=== PATIENT | female | born 1935 | race Caucasian/White ===

== ENCOUNTER 2020-12-25 13:33 | Emergency (ER) | payer MEDICARE, SELFPAY ==
--- NOTE | ~2020-12-25 | XR_ITS ---
EXAMINATION: XR ribs LT 2V w CXR 2V EXAM DATE: 12/25/2020 14:02 INDICATION: Fall, injury, left rib pain. TECHNIQUE: Frontal projection of the upper left ribs, frontal projection of the lower left ribs, obli que projection of the left ribs, frontal and lateral chest x-ray(s) for interpretation. Comparison is made to prior examination from 03/13/2019. FINDINGS: There are no displaced acute left rib fractures identified. There is no soft tissue abnor mality seen. Borderline heart size. There is aortic arteriosclerosis. There is no pneumothorax suspec azar. There are no pleural effusions. Mild to moderate lumbar levoscoliosis. Patient has diffuse idiop athic skeletal hyperostosis (DISH). Epigastric region surgical clips. Consider educating patient that even if there is a radiographically occult nondisplaced rib fracture, there is no specific treatment other than to refrain from activity that prevents healing. IMPRESSION: No displaced left rib fractures. Reviewed, dictated and finalized at location B.
[2020-12-25 13:45] VITALS: BP 158/66; PULSE 62; RESP 24; TEMP 36.6; O2SAT 98
--- NOTE | 2020-12-25 13:56 | ED.FALL ---
HPI - Fall General Chief Complaint: Fall Stated Complaint: chest injury Time Seen by Provider: 12/25/20 13:57 Source: patient Mode of arrival: ambulatory Limitations: no limitations History of Present Illness HPI Narrative: Tess Benedict is an 85 yo female with PMH of HTN, GERD, Parkinsons, who comes to [facility] after a fall on a wooden box that she was carrying to the garage and hit her left upper chest, has 9 out of 10 pain, pain has gotten worse over the last 2 days since incident and is worse with trying to take a deep breath. Related Data Home Medications Medication Instructions Recorded Confirmed cholecalciferol (vitamin D3) 50 mcg PO DAILY 12/25/20 12/25/20 [Vitamin D3] duloxetine 20 mg PO DAILY 12/25/20 12/25/20 felodipine 5 mg PO DAILY 12/25/20 12/25/20 meloxicam 7.5 mg PO DAILY 12/25/20 12/25/20 pantoprazole 20 mg PO HS 12/25/20 12/25/20 pramipexole 0.125 mg PO BID 12/25/20 12/25/20 propranolol 20 mg PO Q12H 12/25/20 12/25/20 sennosides-docusate sodium 1 tab-cap PO HS 12/25/20 12/25/20 [Senna-S] spironolactone 25 mg PO DAILY 12/25/20 12/25/20 tramadol 50 mg PO HS 12/25/20 12/25/20 Allergies Allergy/AdvReac Type Severity Reaction Status Date / Time Sulfa (Sulfonamide Allergy Severe Anaphylaxis Verified 12/25/20 13:58 Antibiotics) lisinopril Allergy Intermediate Swelling Verified 12/25/20 13:58 trazodone Allergy Intermediate Swelling Verified 12/25/20 13:58 of Lip/Tongue/Throat amlodipine Allergy Unknown Unknown Verified 12/25/20 13:58 celecoxib Allergy Unknown Swelling Unverified 03/13/19 17:57 scopolamine AdvReac Intermediate Confusion Verified 12/25/20 14:00 Review of Systems Review of Systems: Narrative: CONSTITUTIONAL: Denies fever, chills, sweats. EYES: Denies visual changes, redness, discharge. ENT: Denies rhinorrhea, congestion, sore throat, otalgia. CARDIOVASCULAR: Denies chest pain, palpitations, edema. RESPIRATORY: Denies dyspnea, wheezing, cough GASTROINTESTINAL: Denies abdominal pain, nausea, vomiting, diarrhea. GENITOURINARY: Denies dysuria, hematuria, abnormal discharge SKIN: Denies rash or itching. NEUROLOGIC: Denies numbness, or focal weakness. PSYCHIATRIC: Denies anxiety or depression. Left-sided chest wall pain, worse with breathing PMFSH Past Medical History Medical History GERD (gastroesophageal reflux disease) HTN (hypertension) Parkinson disease Restless leg syndrome Spinal stenosis Family History Family History Other Heart disease Hypertension Social History Social History (Updated 12/25/20 @ 14:02 by Emily Rivers CNP) Smoking status: Former smoker Alcohol intake: current Comments At time of signature, I agree with nursing past medical, surgical, social and family history. There is no relevant family history pertinent to the presenting complaint. Blood pressure is elevated even on blood pressure meds but patient is also in severe pain Exam Narrative: Exam Narrative: GENERAL: This is a well-nourished, well-developed patient, in mild distress. HEAD: normocephalic, atraumatic. EYES: IT was made sclera clear/white. Vision is grossly intact. EARS: External ears normal. Hearing grossly intact. NOSE: External nose normal without nasal discharge, nares without redness, no rhinorrhea. THROAT: Mucous membranes moist, NECK: Neck supple, non-tender CARDIOVASCULAR: Regular rate and rhythm without murmurs, gallops, or rubs. RESPIRATORY: Clear to auscultation. Breath sounds equal bilaterally. No wheezes, rales, or rhonchi. Pain in left chest particularly on deep breath that is over left breast and left upper quadrant of back, breath sounds are decreased in the area GASTROINTESTINAL: Abdomen soft, n SKIN: warm, intact with no suspicious lesions or rash, good texture and turgor. NEURO: awake, alert, and oriented to person, place and time
--- NOTE | 2020-12-25 14:05 | PC.NURSE ---
PT DECLINED WHEELCHAIR TO RADIOLOGY AND ICE FOR COMFORT
== END 2020-12-25 14:45 | disposition home or self-care (01) ==
PROVIDERS: Emergency Provider Nurse Practitioner; PCP Internal Medicine Geriatric Medicine
DX: S20.212A Contusion of left front wall of thorax, initial encounter (principal); W19.XXXA Unspecified fall, initial encounter; K21.9 Gastro-esophageal reflux disease without esophagitis; I10 Essential (primary) hypertension; G20 Parkinson's disease; G25.81 Restless legs syndrome; M48.00 Spinal stenosis, site unspecified
CPT/HCPCS: 71046; 71100; 99213; G0463

== ENCOUNTER 2021-10-12 17:55 | Emergency (ER) | payer MEDICARE, SELFPAY ==
--- NOTE | 2021-10-12 18:01 | ED.URI ---
HPI - URI/Sore Throat General Chief Complaint: Upper Respiratory Infection Stated Complaint: Bad cough Time Seen by Provider: 10/12/21 18:01 Source: patient and RN notes reviewed History of Present Illness HPI Narrative: Patient is an 85-year-old female who presents the urgent care with complaints of a dry cough since yesterday. Patient states it is worse when she lays down and feels like she cannot catch her breath . Patient states she does have an inhaler from his bout of bronchitis a year ago and that the inhaler did help. Patient denies of any chest pain or tightness. States that she was concerned about a flareup of her CHF . No other acute complaints. No acute distress noted. Patient aware of the plan of care. Some parts of this dictation were generated by voice recognition software and may contain typographical and/or grammatical inaccuracies. Related Data Home Medications Medication Instructions Recorded Confirmed cholecalciferol (vitamin D3) 50 mcg PO DAILY 12/25/20 10/12/21 [Vitamin D3] felodipine 5 mg PO DAILY 12/25/20 10/12/21 pantoprazole 20 mg PO HS 12/25/20 10/12/21 pramipexole 0.125 mg PO BID 12/25/20 10/12/21 propranolol 20 mg PO Q12H 12/25/20 10/12/21 sennosides-docusate sodium 1 tab-cap PO HS 12/25/20 12/25/20 [Senna-S] spironolactone 25 mg PO DAILY 12/25/20 10/12/21 tramadol 50 mg PO HS 12/25/20 10/12/21 apixaban [Eliquis] 5 mg DIRECTED 10/12/21 10/12/21 furosemide 40 mg DIRECTED 10/12/21 10/12/21 Allergies Allergy/AdvReac Type Severity Reaction Status Date / Time Sulfa (Sulfonamide Allergy Severe Anaphylaxis Verified 12/25/20 13:58 Antibiotics) lisinopril Allergy Intermediate Swelling Verified 12/25/20 13:58 trazodone Allergy Intermediate Swelling Verified 12/25/20 13:58 of Lip/Tongue/Throat amlodipine Allergy Unknown Unknown Verified 12/25/20 13:58 celecoxib Allergy Unknown Swelling Unverified 03/13/19 17:57 scopolamine AdvReac Intermediate Confusion Verified 12/25/20 14:00 Review of Systems Review of Systems: CONSTITUTIONAL: Denies fever, chills, or sweats. EYES: Denies visual changes, redness, or discharge. ENT: Denies rhinorrhea, congestion, sore throat, or otalgia. CARDIOVASCULAR: Denies chest pain, palpitations, or edema. RESPIRATORY: Reports of a dry cough GASTROINTESTINAL: Denies abdominal pain, nausea, vomiting, or diarrhea. GENITOURINARY: Denies dysuria or hematuria. SKIN: Denies rash or itching. MUSCULOSKELETAL: Denies back pain, joint pain, or myalgia. NEUROLOGIC: Denies headache, numbness, or weakness. All other systems reviewed are negative, except as documented in HPI. [facility] Past Medical History Medical History GERD (gastroesophageal reflux disease) HTN (hypertension) Parkinson disease Restless leg syndrome Spinal stenosis Family History Family History Other Heart disease Hypertension Social History Social History (Updated 12/25/20 @ 14:02 by Emily Rivers CNP) Smoking status: Former smoker Alcohol intake: current Comments At the time of my signature, I reviewed and agree with the nursing past medical, surgical, social, and family history. There is no relevant family history pertinent to the patient complaint. Exam Narrative: GENERAL: This is a well-nourished, well-developed patient, in no apparent distress. HEAD: normocephalic, atraumatic. EYES: PERRL. Sclera clear/white. Vision is grossly intact. EARS: External ears normal NOSE: External nose normal with no obvious nasal discharge, nares without redness, no rhinorrhea. THROAT: Mucous membranes moist NECK: Neck supple CARDIOVASCULAR: Irregular rhythm, regular rate RESPIRATORY: Clear to auscultation. Breath sounds equal bilaterally. No wheezes, rales, or rhonchi. SKIN: warm, intact with no suspicious lesions or rash, good texture and turgor. NEURO: awake, alert, a
[2021-10-12 18:02] VITALS: BP 161/89; PULSE 93; RESP 20; TEMP 36.7; O2SAT 100
== END 2021-10-12 18:24 | disposition home or self-care (01) ==
PROVIDERS: Emergency Provider Nurse Practitioner Family; PCP Internal Medicine Geriatric Medicine
DX: R05.9 Cough, unspecified (principal); I11.0 Hypertensive heart disease with heart failure; I50.9 Heart failure, unspecified; K21.9 Gastro-esophageal reflux disease without esophagitis; G20 Parkinson's disease; G25.81 Restless legs syndrome; M48.00 Spinal stenosis, site unspecified; Z87.891 Personal history of nicotine dependence
CPT/HCPCS: 99211; G0463

== ENCOUNTER 2021-10-18 10:14 | Emergency (ER) | payer MEDICARE, SELFPAY ==
[2021-10-18 10:24] VITALS: BP 119/69; PULSE 90; RESP 20; TEMP 36.4; O2SAT 96
--- NOTE | 2021-10-18 11:11 | ED.SKABFB ---
HPI - Skin/Abscess/Foreign Bdy General Chief complaint: Skin/Abscess/Foreign Body Stated complaint: Rash Time Seen by Provider: 10/18/21 11:03 Source: patient and RN notes reviewed Mode of arrival: ambulatory Limitations: no limitations History of Present Illness HPI narrative: Patient presents today complaining of hives to her abdomen since last night that have been worsening since onset. Reports itching but no pain. Denies shortness of breath, difficulty swallowing, swelling in her face. She took a Claritin at 6:00 this morning, and Zyrtec before she went to bed. This is her normal medication routine. She has not taken any additional Benadryl or any other medications. She denies any new household products, soaps, lotions, laundry detergents or fabric softeners. No new foods, plant or animal contacts. MD complaint: rash Related Data Home Medications Medication Instructions Recorded Confirmed cholecalciferol (vitamin D3) 50 mcg PO DAILY 12/25/20 10/18/21 [Vitamin D3] felodipine 5 mg PO DAILY 12/25/20 10/18/21 pantoprazole 20 mg PO HS 12/25/20 10/18/21 pramipexole 0.125 mg PO BID 12/25/20 10/18/21 propranolol 20 mg PO Q12H 12/25/20 10/18/21 sennosides-docusate sodium 1 tab-cap PO HS 12/25/20 10/18/21 [Senna-S] spironolactone 25 mg PO DAILY 12/25/20 10/18/21 tramadol 50 mg PO HS 12/25/20 10/18/21 apixaban [Eliquis] 5 mg DIRECTED 10/12/21 10/18/21 furosemide 40 mg DIRECTED 10/12/21 10/18/21 albuterol sulfate 90 mcg INHALATION Q6-8H PRN 10/18/21 10/18/21 Allergies Allergy/AdvReac Type Severity Reaction Status Date / Time Sulfa (Sulfonamide Allergy Severe Anaphylaxis Verified 10/18/21 10:28 Antibiotics) lisinopril Allergy Intermediate Swelling Verified 10/18/21 10:28 trazodone Allergy Intermediate Swelling Verified 10/18/21 10:28 of Lip/Tongue/Throat amlodipine Allergy Unknown Unknown Verified 10/18/21 10:28 celecoxib Allergy Unknown Swelling Unverified 10/18/21 10:28 scopolamine AdvReac Intermediate Confusion Verified 10/18/21 10:28 Review of Systems Review of Systems: CONSTITUTIONAL: Denies body aches, fever, chills, or sweats. EYES: Denies visual changes, redness, or discharge. ENT: Denies rhinorrhea, congestion, sore throat, or otalgia. CARDIOVASCULAR: Denies chest pain, palpitations, or edema. RESPIRATORY: Denies cough or dyspnea. GASTROINTESTINAL: Denies abdominal pain, nausea, vomiting, or diarrhea. GENITOURINARY: Denies dysuria or hematuria. SKIN: Denies wounds.+ Hives MUSCULOSKELETAL: Denies back pain, joint pain, or myalgia. NEUROLOGIC: Denies headache, numbness, tingling, or weakness. PSYCH: Denies depression or anxiety. [facility] Past Medical History Medical History GERD (gastroesophageal reflux disease) HTN (hypertension) Parkinson disease Restless leg syndrome Spinal stenosis Family History Family History Other Heart disease Hypertension Social History Social History Smoking status: Former smoker Alcohol intake: current Comments At time of signature, I have reviewed and agree with nursing past medical, surgical, social and family history unless otherwise noted. Please see nursing chart for further information. There is no relevant family history pertinent to the presenting complaint Exam Narrative: GENERAL: Well-appearing, well-nourished, and in no acute distress. HEAD: Normocephalic, atraumatic. No facial swelling. EYES: EOMI. No redness or drainage. Conjunctivae normal. ENT: Mucous membranes pink and moist. NECK: Normal AROM. Supple. No lymphadenopathy. CHEST: No respiratory distress. EXTREMITIES: Normal range of motion. No edema. SKIN: Warm, dry. Capillary refill normal. Normal skin turgor. Large urticarial rash to the right and left lower abdomen. NEURO: No focal d
[2021-10-18] MEDS: methylPREDNISolone SOD SUCC 125 MG VIAL IM (11:21)
== END 2021-10-18 11:36 | disposition home or self-care (01) ==
PROVIDERS: Emergency Provider Nurse Practitioner; PCP Internal Medicine Geriatric Medicine
DX: L50.9 Urticaria, unspecified (principal); I10 Essential (primary) hypertension; G20 Parkinson's disease; Z87.891 Personal history of nicotine dependence
CPT/HCPCS: 96372; 99213; G0463; J2930

== ENCOUNTER 2022-12-20 12:00 | Emergency (ER) | payer MEDICARE, SELFPAY ==
[2022-12-20 12:06] VITALS: BP 103/64; PULSE 85; RESP 20; TEMP 36.2; O2SAT 94
--- NOTE | 2022-12-20 12:54 | ED.NAVMDI ---
HPI - Nausea/Vomiting/Diarrhea General Chief complaint: Nausea/Vomiting/Diarrhea Stated complaint: diarrhea Time Seen by Provider: 12/20/22 12:30 Source: patient, RN notes reviewed and old records reviewed Mode of arrival: ambulatory (with walker) Limitations: no limitations History of Present Illness HPI Narrative: 87 year old female who presents to [facility] care with complaints of 2 week duration of nausea and vomiting initially only for 2 days with continued diarrhea since that time with patient reporting 12 stools which are watery today. Patient reports that she saw her doctor at onset of her symptoms and stool culture and cDiff culture done which were negative and some labs were also done. Patient reports that she has been on liquid and Brat diet for the past 2 weeks, had no stools yesterday ate some cottage cheese and also mashed potatoes yesterday and today stools have been frequent. Patient reports that she has been drinking Pedialyte daily.Patient denies any fevers, chills or sweat or body aches, reports that she feels weak. Patient denies any blood in stools or any abdominal pain . Patient does see Dr Arauz cobbler upper for CHF and also A fib. Patient denies any recent antibiotic use. MD elicited complaint: diarrhea Pertinent past history: other (CHF, A fib) Onset (ago): week(s) (2) Description of diarrhea: watery Associated nausea: No (not since first 2 days of symptoms) Associated abdominal pain: No Treatment prior to arrival: immodium and other (Pedialyte took some Zofran at first of symptoms) Related Data Home Medications Medication Instructions Recorded Confirmed cholecalciferol (vitamin D3) 50 50 mcg PO DAILY 12/25/20 12/20/22 mcg (2,000 unit) capsule (Vitamin D3) felodipine 5 mg tablet,extended 5 mg PO DAILY 12/25/20 12/20/22 release 24 hr pantoprazole 20 mg tablet,delayed 20 mg PO HS 12/25/20 12/20/22 release pramipexole 0.125 mg tablet 0.125 mg PO BID 12/25/20 12/20/22 propranolol 20 mg tablet 20 mg PO Q12H 12/25/20 12/20/22 sennosides 8.6 mg-docusate sodium 1 tab-cap PO HS 12/25/20 12/20/22 50 mg tablet (Senna-S) spironolactone 25 mg tablet 25 mg PO DAILY 12/25/20 12/20/22 tramadol 50 mg tablet 50 mg PO HS 12/25/20 12/20/22 apixaban 5 mg tablet (Eliquis) 5 mg DIRECTED 10/12/21 12/20/22 furosemide 40 mg tablet 40 mg DIRECTED 10/12/21 12/20/22 albuterol sulfate 90 mcg/actuation 90 mcg inhalation Q6-8H PRN 10/18/21 12/20/22 aerosol inhaler Wheezing Allergies Allergy/AdvReac Type Severity Reaction Status Date / Time Sulfa (Sulfonamide Allergy Severe Anaphylaxis Verified 12/20/22 13:13 Antibiotics) lisinopril Allergy Intermediate Swelling Verified 12/20/22 13:13 trazodone Allergy Intermediate Swelling Verified 12/20/22 13:13 of Lip/Tongue/Throat amlodipine Allergy Unknown Unknown Verified 12/20/22 13:13 celecoxib Allergy Unknown Swelling Verified 12/20/22 13:13 scopolamine AdvReac Intermediate Confusion Verified 12/20/22 13:13 Review of Systems Review of Systems: CONSTITUTIONAL: Denies fever, chills, or sweats. ENT: Denies rhinorrhea, congestion, sore throat, or otalgia. CARDIOVASCULAR: Denies chest pain, palpitations, or edema. RESPIRATORY: Denies cough or dyspnea. GASTROINTESTINAL: Reports no abdominal pain,no recent nausea,no vomiting, persistent diarrhea GENITOURINARY: Denies dysuria or hematuria. SKIN: Denies rash or itching. MUSCULOSKELETAL: Denies back pain, joint pain, or myalgia. NEUROLOGIC: Denies headache, numbness, states weakness. All systems reviewed & are unremarkable except as noted in HPI and below PMFSH Past Medical History Medical History (Updated 12/21/22 @ 08:58 by Paulette Willoughby NP) Atrial fibrillation Congestive heart failure GERD (gastroesophageal reflux disease) HTN (hypertension) Kidney failure Melanoma removed left arm Parkinson disease Restless leg syndrome Spinal stenosis Surgical History Surgical History (Updated 12/21/22 @ 08
== END 2022-12-20 13:17 | disposition home or self-care (01) ==
PROVIDERS: Emergency Provider Registered Nurse; PCP Internal Medicine Geriatric Medicine
DX: R19.7 Diarrhea, unspecified (principal); I48.91 Unspecified atrial fibrillation; I11.0 Hypertensive heart disease with heart failure; I50.9 Heart failure, unspecified; K21.9 Gastro-esophageal reflux disease without esophagitis; G20 Parkinson's disease; G25.81 Restless legs syndrome; M48.00 Spinal stenosis, site unspecified; Z96.653 Presence of artificial knee joint, bilateral; Z96.641 Presence of right artificial hip joint; Z87.891 Personal history of nicotine dependence; Z85.820 Personal history of malignant melanoma of skin
CPT/HCPCS: 99211; G0463

== ENCOUNTER 2023-02-03 14:31 | Emergency (ER) | payer MEDICARE, SELFPAY ==
--- NOTE | 2023-02-03 14:37 | ED.UPPEXIN ---
HPI - Extremity Injury (Upper) General Chief Complaint: Extremity Injury, Upper Stated Complaint: left hand injury Time Seen by Provider: 02/03/23 15:00 Source: patient and RN notes reviewed Mode of arrival: ambulatory Limitations: no limitations History of Present Illness HPI narrative: 87-year-old female presents with concern for skin tear on her left wrist and 1 on her right arm. Reports she bumped her arms yesterday causing the skin tears. She is on a blood thinner and was unable to get the areas to stop bleeding. She reports she used gauze, Steri-Strips, Tegaderm and had she continue to change the dressings because the bleeding MD complaint: injury to: forearm and wrist Related Data Home Medications Medication Instructions Recorded Confirmed cholecalciferol (vitamin D3) 50 50 mcg PO DAILY 12/25/20 02/03/23 mcg (2,000 unit) capsule (Vitamin D3) felodipine 5 mg tablet,extended 5 mg PO DAILY 12/25/20 02/03/23 release 24 hr pantoprazole 20 mg tablet,delayed 20 mg PO HS 12/25/20 02/03/23 release pramipexole 0.125 mg tablet 0.125 mg PO BID 12/25/20 02/03/23 propranolol 20 mg tablet 20 mg PO Q12H 12/25/20 02/03/23 spironolactone 25 mg tablet 25 mg PO DAILY 12/25/20 02/03/23 apixaban 5 mg tablet (Eliquis) 5 mg DIRECTED 10/12/21 02/03/23 furosemide 40 mg tablet 40 mg DIRECTED 10/12/21 02/03/23 clonazepam 0.5 mg tablet 0.25 mg PO HS 02/03/23 02/03/23 Allergies Allergy/AdvReac Type Severity Reaction Status Date / Time Sulfa (Sulfonamide Allergy Severe Anaphylaxis Verified 02/03/23 14:50 Antibiotics) lisinopril Allergy Intermediate Swelling Verified 02/03/23 14:50 trazodone Allergy Intermediate Swelling Verified 02/03/23 14:50 of Lip/Tongue/Throat amlodipine Allergy Unknown Unknown Verified 02/03/23 14:50 celecoxib Allergy Unknown Swelling Verified 02/03/23 14:50 scopolamine AdvReac Intermediate Confusion Verified 02/03/23 14:50 Review of Systems Review of Systems: CONSTITUTIONAL: Denies malaise, chills, sweats, or fever. SKIN: Reports skin tears to the left wrist and right forearm MUSCULOSKELETAL: Denies muscle skeletal pain NEUROLOGIC: Denies numbness, weakness All systems reviewed & are unremarkable except as noted in HPI and below PMFSH Past Medical History Medical History (Updated 02/03/23 @ 15:13 by Ama Kelley NP) Atrial fibrillation Congestive heart failure GERD (gastroesophageal reflux disease) HTN (hypertension) Kidney failure Melanoma removed left arm Parkinson disease Restless leg syndrome Spinal stenosis Surgical History Surgical History (Updated 12/21/22 @ 08:49 by Paulette Willoughby NP) History of bilateral knee replacement History of right hip replacement Family History Family History Other Heart disease Hypertension Social History Social History (Updated 12/21/22 @ 08:50 by Paulette Willoughby NP) Smoking status: Former smoker Alcohol intake: current Alcohol use details: rare Substance use type: does not use Living arrangements: [facility] Gender identity (if verbalized by the patient): Female Comments At time of signature, agree with nursing past medical, surgical, social and family history. There is no relevant family history pertinent to the presenting complaint Exam Narrative: GENERAL: Well-appearing, well-nourished, and in no acute distress. HEAD: Normocephalic, atraumatic. EYES: PERRLA, conjunctivae clear ENT: Mucous membranes moist. NECK: Supple. No lymphadenopathy CHEST: Speaks in full sentences no respiratory distress. HEART: Regular rate and rhythm. SKIN: Warm, dry. Approximately 1 cm skin tear with flap of skin in place noted to the right forearm, small amount of bleeding noted. Approximately 2 cm v-shaped skin tear noted to the left wrist with flap of skin still in place with some bleeding noted NEURO: Alert and oriented x3. PSYCH: Norm
[2023-02-03 14:39] VITALS: BP 111/70; PULSE 83; RESP 16; TEMP 35.8; O2SAT 100
[2023-02-03 14:51] VITALS: BP 111/70; PULSE 83; RESP 16; TEMP 35.8; O2SAT 100
== END 2023-02-03 15:26 | disposition home or self-care (01) ==
PROVIDERS: Emergency Provider Nurse Practitioner; PCP Internal Medicine Geriatric Medicine
DX: S61.512A Laceration without foreign body of left wrist, initial encounter (principal); S51.811A Laceration without foreign body of right forearm, initial encounter; X58.XXXA Exposure to other specified factors, initial encounter; I48.91 Unspecified atrial fibrillation; I11.0 Hypertensive heart disease with heart failure; I50.9 Heart failure, unspecified; K21.9 Gastro-esophageal reflux disease without esophagitis; G20 Parkinson's disease; G25.81 Restless legs syndrome; M48.00 Spinal stenosis, site unspecified; Z96.653 Presence of artificial knee joint, bilateral; Z87.891 Personal history of nicotine dependence; Z79.01 Long term (current) use of anticoagulants
CPT/HCPCS: 99212; G0463

== ENCOUNTER 2023-09-25 19:02 | Emergency (ER) | payer MEDICARE, SELFPAY ==
[2023-09-25 19:14] VITALS: BP 132/83; PULSE 92; RESP 16; TEMP 36.8; O2SAT 98
--- NOTE | 2023-09-25 19:15 | ED.SKABFB ---
HPI - Skin/Abscess/Foreign Bdy General Chief complaint: Skin/Abscess/Foreign Body Stated complaint: Wound Check Time Seen by Provider: 09/25/23 19:15 Source: patient, RN notes reviewed and old records reviewed Mode of arrival: ambulatory Limitations: no limitations History of Present Illness HPI narrative: again87 year old female presents to express care with complaints of hitting her right upper forearm on vacuum tank at car wash today causing skin tear to her arm. Patient is on blood thinners and she put steri strips and a Opsite type of bandage on site and did get bleeding to stop. Patient reports that later she hit her arm again on something at home and bleeding restarted. Patient has skin tear to right upper [id number] by 2.5 with upper layer of skin almost covering wound with some bloody drainage, no steri strip in place and band-aide type of dressing in place. Patient has alot of bruising noted to bilateral arms and to dorsal hands. MD complaint: other (skin tear to right forearm) Onset (ago): hour(s) (this morning) Severity: moderate Quality: aching Treatments prior to arrival: bandages and other (antiseptic spray) Related Data Home Medications Medication Instructions Recorded Confirmed cholecalciferol (vitamin D3) 50 50 mcg PO DAILY 12/25/20 02/03/23 mcg (2,000 unit) capsule (Vitamin D3) felodipine 5 mg tablet,extended 5 mg PO DAILY 12/25/20 02/03/23 release 24 hr pantoprazole 20 mg tablet,delayed 20 mg PO HS 12/25/20 02/03/23 release pramipexole 0.125 mg tablet 0.125 mg PO BID 12/25/20 02/03/23 propranolol 20 mg tablet 20 mg PO Q12H 12/25/20 02/03/23 spironolactone 25 mg tablet 25 mg PO DAILY 12/25/20 02/03/23 apixaban 5 mg tablet (Eliquis) 5 mg DIRECTED 10/12/21 02/03/23 furosemide 40 mg tablet 40 mg DIRECTED 10/12/21 02/03/23 clonazepam 0.5 mg tablet 0.25 mg PO HS 02/03/23 02/03/23 Allergies Allergy/AdvReac Type Severity Reaction Status Date / Time Sulfa (Sulfonamide Allergy Severe Anaphylaxis Verified 02/03/23 14:50 Antibiotics) lisinopril Allergy Intermediate Swelling Verified 02/03/23 14:50 trazodone Allergy Intermediate Swelling Verified 02/03/23 14:50 of Lip/Tongue/Throat amlodipine Allergy Unknown Unknown Verified 02/03/23 14:50 celecoxib Allergy Unknown Swelling Verified 02/03/23 14:50 scopolamine AdvReac Intermediate Confusion Verified 02/03/23 14:50 Review of Systems Review of Systems: CONSTITUTIONAL: Denies fever, chills, or sweats. CARDIOVASCULAR: Denies chest pain, palpitations, or edema. RESPIRATORY: Denies cough or dyspnea. SKIN: Reports skin tear today to right forearm she put steri strips on wound and dressing but hit arm after doing that and got it bleeding again MUSCULOSKELETAL: Denies musculoskeletal pain NEUROLOGIC: Denies numbness, or weakness. All systems reviewed & are unremarkable except as noted in HPI and below PMFSH Past Medical History Medical History (Updated 09/26/23 @ 00:08 by Caesar Adams) Atrial fibrillation Congestive heart failure GERD (gastroesophageal reflux disease) HTN (hypertension) Kidney failure Melanoma removed left arm Parkinson disease Restless leg syndrome Spinal stenosis Surgical History Surgical History (Updated 12/21/22 @ 08:49 by Paulette Wilolughby NP) History of bilateral knee replacement History of right hip replacement Family History Family History Other Heart disease Hypertension Social History Social History (Updated 12/21/22 @ 08:50 by Paulette Willoughby NP) Smoking status: Former smoker Alcohol intake: current Alcohol use details: rare Substance use type: does not use Living arrangements: [facility] Gender identity (if verbalized by the patient): Female Comments At time of signature, agree with nursing past medical, surgical, social and family history. There is no relevant family history pertinent to the pre
== END 2023-09-25 19:45 | disposition home or self-care (01) ==
PROVIDERS: Emergency Provider Registered Nurse; PCP Internal Medicine Geriatric Medicine
DX: S51.811A Laceration without foreign body of right forearm, initial encounter (principal); W22.8XXA Striking against or struck by other objects, initial encounter; Z87.891 Personal history of nicotine dependence; I48.91 Unspecified atrial fibrillation; I11.0 Hypertensive heart disease with heart failure; I50.9 Heart failure, unspecified; K21.9 Gastro-esophageal reflux disease without esophagitis; G20.A1 Parkinson's disease without dyskinesia, without mention of fluctuations; G25.81 Restless legs syndrome; M48.00 Spinal stenosis, site unspecified; Z96.653 Presence of artificial knee joint, bilateral; Z96.641 Presence of right artificial hip joint; Z85.820 Personal history of malignant melanoma of skin
CPT/HCPCS: 99213; G0463

== ENCOUNTER 2024-05-11 09:55 | Emergency (ER) | payer MEDICARE, SELFPAY ==
[2024-05-11 10:13] VITALS: BP 135/111; PULSE 93; RESP 16; TEMP 36.3; O2SAT 100
--- NOTE | 2024-05-11 10:35 | ED_ITS ---
HPI - Skin/Abscess/Foreign Bdy General Chief complaint: Skin/Abscess/Foreign Body Stated complaint: Left Leg Skin Sore History of Present Illness HPI narrative: Patient presents for evaluation of a skin tear to her left lower extremity. Patient states that occurred several days ago and she had a virtual visit with her primary care provider number bryan was advised to apply a clear occlusive dressing to the area patient is unable to do that on her own and presents for help with wound care. Patient was also placed on antibiotic at that time which she continues to take. Patient also has a new area where she dropped an ice pack on her left lower extremity with a puncture wound to the left lower leg. No concern for infection no drainage no redness no swelling. Related Data Home Medications Medication Instructions Recorded Confirmed cholecalciferol (vitamin D3) 50 50 mcg PO DAILY 12/25/20 02/03/23 mcg (2,000 unit) capsule (Vitamin D3) felodipine 5 mg tablet,extended 5 mg PO DAILY 12/25/20 02/03/23 release 24 hr pantoprazole 20 mg tablet,delayed 20 mg PO HS 12/25/20 02/03/23 release pramipexole 0.125 mg tablet 0.125 mg PO BID 12/25/20 02/03/23 propranolol 20 mg tablet 20 mg PO Q12H 12/25/20 02/03/23 spironolactone 25 mg tablet 25 mg PO DAILY 12/25/20 02/03/23 apixaban 5 mg tablet (Eliquis) 5 mg DIRECTED 10/12/21 02/03/23 furosemide 40 mg tablet 40 mg DIRECTED 10/12/21 02/03/23 clonazepam 0.5 mg tablet 0.25 mg PO HS 02/03/23 02/03/23 cephalexin 500 mg capsule mg 05/11/24 Allergies Allergy/AdvReac Type Severity Reaction Status Date / Time Sulfa (Sulfonamide Allergy Severe Anaphylaxis Verified 02/03/23 14:50 Antibiotics) lisinopril Allergy Intermediate Swelling Verified 02/03/23 14:50 trazodone Allergy Intermediate Swelling Verified 02/03/23 14:50 of Lip/Tongue/Throat amlodipine Allergy Unknown Unknown Verified 02/03/23 14:50 celecoxib Allergy Unknown Swelling Verified 02/03/23 14:50 scopolamine AdvReac Intermediate Confusion Verified 02/03/23 14:50 Review of Systems Review of Systems: CONSTITUTIONAL: Denies fever, chills, or sweats. EYES: Denies visual changes, redness, or discharge. ENT: Denies rhinorrhea, congestion, sore throat, or otalgia. CARDIOVASCULAR: Denies chest pain, palpitations, or edema. RESPIRATORY: Denies cough or dyspnea. GASTROINTESTINAL: Denies abdominal pain, nausea, vomiting, or diarrhea. GENITOURINARY: Denies dysuria or hematuria. SKIN: Denies rash or itching. MUSCULOSKELETAL: Denies back pain, joint pain, or myalgia. NEUROLOGIC: Denies headache, numbness, or weakness. PSYCHIATRIC: Denies anxiety or depression. [facility] Past Medical History Medical History (Updated 05/11/24 @ 10:43 by BHUPENDRA Novoa) Atrial fibrillation Congestive heart failure GERD (gastroesophageal reflux disease) HTN (hypertension) Kidney failure Melanoma removed left arm Parkinson disease Restless leg syndrome Spinal stenosis Surgical History Surgical History (Updated 12/21/22 @ 08:49 by Paulette Willoughby NP) History of bilateral knee replacement History of right hip replacement Family History Family History Other Heart disease Hypertension Social History Social History (Updated 12/21/22 @ 08:50 by Paulette Willoughby NP) Smoking status: Former smoker Alcohol intake: current Alcohol use details: rare Substance use type: does not use Living arrangements: [facility] Gender identity (if verbalized by the patient): Female Comments At time of signature, agree with nursing past medical, surgical, social and family history. There is no relevant family history pertinent to the presenting complaint Exam Narrative: GENERAL: Well-appearing, well-nourished, and in no acute distress. HEAD: Normocephalic, atraumatic. EYES: PERRLA and EOMI. ENT: Nares clear, no rhinorrhea or epistaxis. Mucous membranes moist. NECK: Supple. CHEST: Clear to auscultation. No respiratory distress. HEART: Regular rate and rhythm. No murmur heard. Normal peripheral pulses. ABDOMEN: Soft, nontender, nondistended, normal active bowel sounds. EXTREMITIES: Normal range of motion. No edema. SKIN: Warm, dry, no rash. Skin tear to left lower extremity no redness no stre aking no drainage noted superficial puncture wound to left lower leg no drainage no concern for infection NEURO: No focal deficits. Alert and oriented x3. [place] Coma Scale Eye Opening: Spontaneous 4 [place] Coma Scale Motor: Obeys Commands 6 [place] Coma Scale Verbal: Oriented 5 [place] Coma Scale Total 15 Course Course Level of Care: Express Care Visit Vital Signs Vital signs: Vital Signs Temperature 36.3 C L 05/11/24 10:13 Pulse Rate 93 05/11/24 10:13 Respiratory Rate 16 05/11/24 10:13 Blood Pressure 135/111 H 05/11/24 10:13 Pulse Oximetry 100 05/11/24 10:13 Oxygen Delivery Room Air 05/11/24 10:13 Temperature 36.3 C L 05/11/24 10:13 Pulse Rate 93 05/11/24 10:13 Respiratory Rate 16 05/11/24 10:13 Blood Pressure 135/111 H 05/11/24 10:13 Pulse Oximetry 100 05/11/24 10:13 Oxygen Delivery Room Air 05/11/24 10:13 Please TOM schedule a followup visit with your personal physician for further evaluation and treatment. Including recheck and discussion of your blood pressure. If your symptoms persist, change or worsen significantly before you can contact your personal physician then please, without delay, go to the emergency department for further evaluation blood pressure recheck 130/88 Discharge Plan Discharge Clinical Impression: Skin tear, Noninfected skin tear of leg, Skin tear of left lower leg without complication Patient Disposition: Home, Self-Care Condition: Stable Instructions: Antibiotic Form, Skin Tear (ED) Additional Instructions: Keep occlusive dressing on for the next 5-7 days Monitor area for any signs of redness or drainage Finish antibiotic as prescribed by primary care provider Follow-up with primary care provider in 4-5 days for re-evaluation If any new or worsening symptoms please go to the ER immediately for further evaluation treatment Prescriptions: No Action furosemide 40 mg tablet 40 mg DIRECTED Eliquis 5 mg tablet 5 mg DIRECTED clonazepam 0.5 mg Tablet 0.25 mg PO HS Rx Instructions: administer 30 minutes before bedtime spironolactone 25 mg Tablet 25 mg PO DAILY pantoprazole 20 mg Tablet,Delayed Release (Dr/Ec) 20 mg PO HS propranolol 20 mg Tablet 20 mg PO Q12H felodipine 5 mg Tablet Extended Release 24 Hr 5 mg PO DAILY pramipexole 0.125 mg Tablet 0.125 mg PO BID cholecalciferol (vitamin D3) [Vitamin D3] 50 mcg (2,000 unit) Capsule 50 mcg PO DAILY cephalexin 500 mg capsule 500 mg PO Q12H Qty: 14 0RF cephalexin 500 mg capsule Follow-up/Referrals: Eddie,MD Pepper [Primary Care Provider] -
== END 2024-05-11 10:55 | disposition home or self-care (01) ==
PROVIDERS: Emergency Provider Nurse Practitioner Family; PCP Internal Medicine Geriatric Medicine
DX: S81.812A Laceration without foreign body, left lower leg, initial encounter (principal); I48.91 Unspecified atrial fibrillation; I11.0 Hypertensive heart disease with heart failure; I50.9 Heart failure, unspecified; G20.A1 Parkinson's disease without dyskinesia, without mention of fluctuations; Z87.891 Personal history of nicotine dependence; W45.8XXA Other foreign body or object entering through skin, initial encounter
CPT/HCPCS: 99212; G0463

== ENCOUNTER 2024-06-10 14:20 | Emergency (ER) | payer MEDICARE, SELFPAY ==
[2024-06-10 14:31] VITALS: BP 106/63; PULSE 78; RESP 16; TEMP 36.2; O2SAT 98
--- NOTE | 2024-06-10 15:32 | ED.WOUNDLAC ---
HPI - Wound/Laceration General Chief Complaint: Wound/Laceration Stated Complaint: left leg bruised/bleeding Time Seen by Provider: 06/10/24 15:24 Source: patient and RN notes reviewed Mode of arrival: ambulatory Limitations: no limitations History of Present Illness HPI narrative: Patient presents today complaining a 2 skin tears the left anterior jaimes that were sustained 5 days ago. She had put Band-Aids to the area in when she took them off today this started to bleed again. She presents today requesting Tegaderm dressings that she can leave on until fully healed, as she did something similar at her previous skin tear in was very happy with the dressings. Related Data Home Medications ?Medication ?Instructions ?Recorded ?Confirmed ?Last Taken ?Type cholecalciferol (vitamin D3) 50 50 mcg PO DAILY 12/25/20 02/03/23 Unknown History mcg (2,000 unit) capsule (Vitamin D3) felodipine 5 mg tablet,extended 5 mg PO DAILY 12/25/20 02/03/23 Unknown History release 24 hr pantoprazole 20 mg tablet,delayed 20 mg PO HS 12/25/20 02/03/23 Unknown History release pramipexole 0.125 mg tablet 0.125 mg PO BID 12/25/20 02/03/23 Unknown History propranolol 20 mg tablet 20 mg PO Q12H 12/25/20 02/03/23 Unknown History spironolactone 25 mg tablet 25 mg PO DAILY 12/25/20 02/03/23 Unknown History apixaban 5 mg tablet (Eliquis) 5 mg DIRECTED 10/12/21 02/03/23 Unknown History furosemide 40 mg tablet 40 mg DIRECTED 10/12/21 02/03/23 Unknown History clonazepam 0.5 mg tablet 0.25 mg PO HS 02/03/23 02/03/23 Unknown History cephalexin 500 mg capsule mg 05/11/24 Unknown History allopurinol 100 mg tablet mg 06/10/24 Unknown History atorvastatin 20 mg tablet mg 06/10/24 Unknown History fluticasone 100 mcg-salmeterol 50 inhalation 06/10/24 Unknown History mcg/dose blistr powdr for inhalation (Wixela Inhub) furosemide 80 mg tablet mg 06/10/24 Unknown History pantoprazole 40 mg tablet,delayed mg PO 06/10/24 Unknown History release Allergies Allergy/AdvReac Type Severity Reaction Status Date / Time Sulfa (Sulfonamide Allergy Severe Anaphylaxis Verified 06/10/24 15:12 Antibiotics) lisinopril Allergy Intermediate Swelling Verified 06/10/24 15:12 trazodone Allergy Intermediate Swelling Verified 06/10/24 15:12 of Lip/Tongue/Throat amlodipine Allergy Unknown Unknown Verified 06/10/24 15:12 celecoxib Allergy Unknown Swelling Verified 06/10/24 15:12 scopolamine AdvReac Intermediate Confusion Verified 06/10/24 15:12 Review of Systems Review of Systems: CONSTITUTIONAL: Denies body aches, fever, chills, or sweats. EYES: Denies visual changes, redness, or discharge. ENT: Denies rhinorrhea, congestion, sore throat, or otalgia. CARDIOVASCULAR: Denies chest pain, palpitations, or edema. RESPIRATORY: Denies cough or dyspnea. GASTROINTESTINAL: Denies abdominal pain, nausea, vomiting, or diarrhea. GENITOURINARY: Denies dysuria or hematuria. SKIN: Skin tears MUSCULOSKELETAL: Denies back pain, joint pain, or myalgia. NEUROLOGIC: Denies headache, numbness, tingling, or weakness. PSYCH: Denies depression or anxiety. [facility] Past Medical History Medical History Kidney failure Congestive heart failure Atrial fibrillation Melanoma removed left arm Restless leg syndrome Spinal stenosis Parkinson disease GERD (gastroesophageal reflux disease) HTN (hypertension) Surgical History Surgical History History of right hip replacement History of bilateral knee replacement Family History Family History Other Heart disease Hypertension Social History Social History Smoking status: Former smoker Alcohol intake: current Alcohol use details: rare Substance use type: does not use Living arrangements: [facility] Gender identity (if verbalized by the patient): Female Comments At time of signature, I have reviewed and agree with nursing past medical, surgical, social and family history unless otherwise noted. Please see nursing chart for further information. There is no relevant family history pertinent to the presenting complaint Exam Narrative: GENERAL: Well-appearing, well-nourished, and in no acute distress. HEAD: Normocephalic, atraumatic. EYES: EOMI. No redness or drainage. Conjunctivae normal. ENT: Mucous membranes pink and moist. NECK: Normal AROM. CHEST: No respiratory distress. EXTREMITIES: 2 superficial skin tears to the left jaimes, each measuring approximately 2 x 2 cm with no active bleeding. No signs of infection. SKIN: Warm, dry, no rash. Capillary refill normal. Normal skin turgor. NEURO: No focal deficits. Alert and oriented x3. Gait steady. PSYCH: Normal affect. No signs of depression or anxiety. Course Course Level of Care: Express Care Visit Vital Signs Vital signs: Vital Signs Temperature 97.2 F L 06/10/24 14:31 Pulse Rate 78 06/10/24 14:31 Respiratory Rate 16 06/10/24 14:31 Blood Pressure 106/63 06/10/24 14:31 Pulse Oximetry 98 06/10/24 14:31 Oxygen Delivery Room Air 06/10/24 14:31 Temperature 97.2 F L 06/10/24 14:31 Pulse Rate 78 06/10/24 14:31 Respiratory Rate 16 06/10/24 14:31 Blood Pressure 106/63 06/10/24 14:31 Pulse Oximetry 98 06/10/24 14:31 Oxygen Delivery Room Air 06/10/24 14:31 Reviewed MDM - Wound/Laceration MDM Narrative Medical decision making narrative: 2 telfa dressings applied to the skin tears by RN as patient requested. Education given for removal. Anticipatory guidance given. Differential Diagnosis Differential diagnosis: Likely laceration, avulsion of skin and other (Skin tear) Critical Care Time Critical Care Time Critical Care Time: No Discharge Plan Discharge Clinical Impression: Noninfected skin tear of left leg Qualifiers: Encounter type: initial encounter Qualified Code(s): S81.812A - Laceration without foreign body, left lower leg, initial encounter Patient Disposition: Home, Self-Care Condition: Stable Additional Instructions: Your skin tears have been cleansed and dressed. It is recommended that you change the dressing daily after cleaning. Monitor for infection such as redness, swelling, increased pain or drainage comments your doctor if you note any. Patient Language: Egyptian Prescriptions: No Action furosemide 40 mg tablet 40 mg DIRECTED Eliquis 5 mg tablet 5 mg DIRECTED clonazepam 0.5 mg Tablet 0.25 mg PO HS Rx Instructions: administer 30 minutes before bedtime spironolactone 25 mg Tablet 25 mg PO DAILY pantoprazole 20 mg Tablet,Delayed Release (Dr/Ec) 20 mg PO HS propranolol 20 mg Tablet 20 mg PO Q12H felodipine 5 mg Tablet Extended Release 24 Hr 5 mg PO DAILY pramipexole 0.125 mg Tablet 0.125 mg PO BID cholecalciferol (vitamin D3) [Vitamin D3] 50 mcg (2,000 unit) Capsule 50 mcg PO DAILY cephalexin 500 mg capsule 500 mg PO Q12H Qty: 14 0RF cephalexin 500 mg capsule atorvastatin 20 mg tablet allopurinol 100 mg tablet furosemide 80 mg tablet pantoprazole 40 mg tablet,delayed release (DR/EC) PO fluticasone propion-salmeterol [Wixela Inhub] 100-50 mcg/dose blister with device INHALATION Follow-up/Referrals: Ruddy,Tiffanie Wang MD [Primary Care Provider] - Time of Disposition: 15:36
== END 2024-06-10 15:40 | disposition home or self-care (01) ==
PROVIDERS: Emergency Provider Nurse Practitioner; PCP Pediatrics Adolescent Medicine
DX: S81.812A Laceration without foreign body, left lower leg, initial encounter (principal); I48.91 Unspecified atrial fibrillation; I13.0 Hypertensive heart and chronic kidney disease with heart failure and stage 1 through stage 4 chronic kidney disease, or unspecified chronic kidney disease; N18.9 Chronic kidney disease, unspecified; I50.9 Heart failure, unspecified; G20.A1 Parkinson's disease without dyskinesia, without mention of fluctuations; Z79.899 Other long term (current) drug therapy; Z87.891 Personal history of nicotine dependence; W45.8XXA Other foreign body or object entering through skin, initial encounter
CPT/HCPCS: 99213; G0463

== ENCOUNTER 2024-06-11 09:54 | Emergency (ER) | payer MEDICARE, SELFPAY ==
--- NOTE | 2024-06-11 09:58 | ED.WOUNDLAC ---
HPI - Wound/Laceration General Chief Complaint: Wound/Laceration Stated Complaint: bumped leg/bleeding Time Seen by Provider: 06/11/24 10:35 Source: patient and RN notes reviewed Mode of arrival: ambulatory Limitations: no limitations History of Present Illness HPI narrative: 88-year-old female presents with concern for skin tear that was read bleeding. She reports she was seen here yesterday for skin tear and had a Tegaderm placed on the skin tear. She reports she bumped the leg this morning and started to rebleed. Related Data Home Medications ?Medication ?Instructions ?Recorded ?Confirmed ?Last Taken ?Type cholecalciferol (vitamin D3) 50 50 mcg PO DAILY 12/25/20 02/03/23 Unknown History mcg (2,000 unit) capsule (Vitamin D3) felodipine 5 mg tablet,extended 5 mg PO DAILY 12/25/20 02/03/23 Unknown History release 24 hr pantoprazole 20 mg tablet,delayed 20 mg PO HS 12/25/20 02/03/23 Unknown History release pramipexole 0.125 mg tablet 0.125 mg PO BID 12/25/20 02/03/23 Unknown History propranolol 20 mg tablet 20 mg PO Q12H 12/25/20 02/03/23 Unknown History spironolactone 25 mg tablet 25 mg PO DAILY 12/25/20 02/03/23 Unknown History apixaban 5 mg tablet (Eliquis) 5 mg DIRECTED 10/12/21 02/03/23 Unknown History furosemide 40 mg tablet 40 mg DIRECTED 10/12/21 02/03/23 Unknown History clonazepam 0.5 mg tablet 0.25 mg PO HS 02/03/23 02/03/23 Unknown History cephalexin 500 mg capsule mg 05/11/24 Unknown History allopurinol 100 mg tablet mg 06/10/24 Unknown History atorvastatin 20 mg tablet mg 06/10/24 Unknown History fluticasone 100 mcg-salmeterol 50 inhalation 06/10/24 Unknown History mcg/dose blistr powdr for inhalation (Wixela Inhub) furosemide 80 mg tablet mg 06/10/24 Unknown History pantoprazole 40 mg tablet,delayed mg PO 06/10/24 Unknown History release Allergies Allergy/AdvReac Type Severity Reaction Status Date / Time Sulfa (Sulfonamide Allergy Severe Anaphylaxis Verified 06/11/24 10:38 Antibiotics) lisinopril Allergy Intermediate Swelling Verified 06/11/24 10:38 trazodone Allergy Intermediate Swelling Verified 06/11/24 10:38 of Lip/Tongue/Throat amlodipine Allergy Unknown Unknown Verified 06/11/24 10:38 celecoxib Allergy Unknown Swelling Verified 06/11/24 10:38 scopolamine AdvReac Intermediate Confusion Verified 06/11/24 10:38 Review of Systems Review of Systems: CONSTITUTIONAL: Denies malaise, chills, sweats, or fever. RESP: Reports cough and wheezing for 1 week SKIN: Reports skin tear to the right lower leg MUSCULOSKELETAL: Denies muscle skeletal pain NEUROLOGIC: Denies numbness, weakness All systems reviewed & are unremarkable except as noted in HPI and below PMFSH Past Medical History Medical History Kidney failure Congestive heart failure Atrial fibrillation Melanoma removed left arm Restless leg syndrome Spinal stenosis Parkinson disease GERD (gastroesophageal reflux disease) HTN (hypertension) Surgical History Surgical History History of right hip replacement History of bilateral knee replacement Family History Family History Other Heart disease Hypertension Social History Social History Smoking status: Former smoker Alcohol intake: current Alcohol use details: rare Substance use type: does not use Living arrangements: [facility] Gender identity (if verbalized by the patient): Female Comments At time of signature, agree with nursing past medical, surgical, social and family history. There is no relevant family history pertinent to the presenting complaint Exam Narrative: GENERAL: Well-appearing, well-nourished, and in no acute distress. HEAD: Normocephalic, atraumatic. EYES: PERRLA, sclera clear, and EOMI. No nystagmus. ENT: Nares clear. Mucous membranes moist. NECK: Supple. CHEST: Audible wheeze. No respiratory distress. Scattered wheeze to auscultation with crackles the bases. No bony deformities, no asymmetry. Speaks in full sentences. HEART: Regular rate and rhythm. No murmur heard. Normal peripheral pulses. ABDOMEN: Soft, nontender, nondistended, normal active bowel sounds, no palpable masses. EXTREMITIES: Normal range of motion. No edema. Normal strength and sensation. SKIN: Warm, dry. Two skin tears to the anterior right lower leg with clotted blood and some serosanguineous drainage under Tegaderm dressing NEURO: Alert and oriented x3. PSYCH: Normal mood and affect Course Course Emergency Course: Surgicel applied to skin tear, hemostasis achieved, nonstick dressing applied in anticipatory guidance given regarding wound care. Patient is aware of diagnosis, understands and agrees to treatment plan. Patient agrees to follow-up as directed and is aware of reasons to seek care at the emergency department. Portions of this record may have been created with voice recognition software Level of Care: Express Care Visit Vital Signs Vital signs: Reviewed. MDM - Wound/Laceration MDM Narrative Medical decision making narrative: I evaluated this patient in the express care. History is obtained from patient who is an independent historian and physical exam was performed.? Available medical records were reviewed. ? Exam findings show no acute concerns or changes; patient is non-toxic appearing and is in no distress. ? Differential diagnosis and treatment plan were discussed with the patient. Patient agrees with discussion and after shared medical decision making agrees with plan of care. All questions were answered to the patient's satisfaction. Patient is appropriate for outpatient treatment and follow-up. Differential Diagnosis Differential diagnosis: Likely laceration, abrasion and avulsion of skin Critical Care Time Critical Care Time Critical Care Time: No Discharge Plan Discharge Clinical Impression: Skin tear, Wheezing Patient Disposition: Home, Self-Care Condition: Stable Instructions: Skin Tear (ED) Additional Instructions: Keep the dressing on your leg for 48 hours. Take the outer layers off of the dressing before you shower, let water run over the inner layer of the dressing until it falls off your skin. Then re-dress your skin tear within nonstick dressing or Tegaderm. Take prednisone as directed for wheezing Use your inhaler as needed for cough, wheezing, shortness of breath or chest tightness. Also, recommend symptomatic treatment includes: rest, fluids, and increase humidity of the air at home. Recommend Acetaminophen as directed on the bottle to reduce fever, pain, headache. Avoid smoking/second-hand smoke. Please schedule a follow-up visit with your personal physician for further evaluation and treatment within 3-5days. If your symptoms persist, change or worsen significantly before you can contact your personal physician then please, without delay, go to the emergency department for further evaluation. Patient Language: Brazilian Prescriptions: New prednisone 20 mg tablet 40 mg PO DAILY 5 Days Qty: 10 0RF No Action furosemide 40 mg tablet 40 mg DIRECTED Eliquis 5 mg tablet 5 mg DIRECTED clonazepam 0.5 mg Tablet 0.25 mg PO HS Rx Instructions: administer 30 minutes before bedtime spironolactone 25 mg Tablet 25 mg PO DAILY pantoprazole 20 mg Tablet,Delayed Release (Dr/Ec) 20 mg PO HS propranolol 20 mg Tablet 20 mg PO Q12H felodipine 5 mg Tablet Extended Release 24 Hr 5 mg PO DAILY pramipexole 0.125 mg Tablet 0.125 mg PO BID cholecalciferol (vitamin D3) [Vitamin D3] 50 mcg (2,000 unit) Capsule 50 mcg PO DAILY cephalexin 500 mg capsule 500 mg PO Q12H Qty: 14 0RF cephalexin 500 mg capsule atorvastatin 20 mg tablet allopurinol 100 mg tablet furosemide 80 mg tablet pantoprazole 40 mg tablet,delayed release (DR/EC) PO fluticasone propion-salmeterol [Wixela Inhub] 100-50 mcg/dose blister with device INHALATION Follow-up/Referrals: Eddie,MD Pepper [Primary Care Provider] - Time of Disposition: 10:47
[2024-06-11 10:04] VITALS: BP 116/69; PULSE 83; RESP 16; TEMP 36.5; O2SAT 99
--- OUTSIDE RECORDS SUMMARY | 2024-06-18 18:46 | XMS_ITS | Clinical Summary ---
Author Organization [facility] Address [address] [place] [address] Phone Care Team Providers Care Spanish Literature Professor Name Role Phone Tristin Morgan MD Primary Care Provider [phone] Social History Tobacco Use Types Packs/Day Years Used Date Smoking Tobacco: Never Assessed Comments Unknown Sex and Gender Information Value Date Recorded Sex Assigned at Not on file Legal Sex Female 11:44 PM CDT Gender Identity Not on file Sexual Orientation Not on file Plan of Treatment Health Maintenance Due Date Last Done Comments DEXA Bone Density 1935 Hepatitis C Virus (HCV) Screening 1935 Pneumococcal Immunization (50+ years) (1 of 1 - PCV) 11/24/1987 Zoster Immunization (1 of 2) 11/24/1987 Respiratory Syncytial Virus (RSV) Immunization (Adult) (1 - 1-dose 75+ series) 2012 Influenza Immunization (#1) 02/18/202403/21, 04/17/2019, 03/12/2018, Additional history exists SARS-COV-2 Immunization ( season) 2024 03/14/2021, 09/06/2020, 08/15/2020 DTaP/Tdap/Td Immunization Discontinued 05/18/2011 TdaP Immunization Completed 05/18/2011 Hepatitis B Immunization Aged Out No longer eligible based on patient's age to complete this topic Meningococcal Immunization (ACWY) Aged Out No longer eligible based on patient's age to complete this topic Rotavirus Immunization Aged Out No lo nger eligible based on patient's age to complete [place] [address] [place] [address] MEDICARE [facility] SUPPLEMENTAL Care Teams Spanish Literature Professor Relationship Specialty Start Date End Date Tristin Morgan MD [employer], [address] [place] [address] PCP - General Infectious Disease 07/25/19
--- OUTSIDE RECORDS SUMMARY | 2024-06-18 18:46 | XMS_ITS | Encounter Summary ---
Author Organization [facility] Address [address] [place] [address] Phone Care Team Providers Care Assurance Associate Name Role Phone Tristin Morgan MD Primary Care Provider [phone] Reason for Referral * Radiology Services (Emergency) - Closed Specialty Diagnoses / Procedures Referred By Contac t Referred To Contact Radiology Diagnoses Edema, unspecified type SOB (shortness of breath) Procedures CT CHEST W CONTRAST Tristin Morgan MD Phone: tel: fax: Referral ID Status Reason Start Date Expiration Date Visits Re quested Visits Authorized [id number] Closed 07/25/2019 1 1 D DUMPER Encounter Details Date Type Department Care Team (Late st Contact Info) Description 07/25/2019 Transcribe Orders [facility] Scheduling [address] [place] [id number] Tristin Morgan MD [address], [address] [place] [address] Edema, unspecified type (Primary Dx); SOB (shortness of breath) Social History Tobacco Use Types Packs/Day Years Used Date Smoking Tobacco: Never Assessed Comments Unknown Sex and Gender Information Value Date Recorded Sex Assigned at Not on file Legal Sex Female 11:44 PM CDT Gender Identity Not on file Sexual Orientation Not on file documented as of this encounter Plan of Treatment Not on file documented as of this encounter Results * CT CHEST W CONTRAST (07/25/2019 5:32 PM BREAD DUMPER) Anatomical Region Laterality Modality Chest N/A Computed Tomogra phy 07/25/2019 6:45 PM BREAD DUMPER Impressions 07/25/2019 6:48 PM BREAD DUMPER IMPRESSION: ??No evidence of pulmonary embolus. ??No airspace infiltrates or effusions. Minimal nodular interstitial prominence in the right upper lobe could be infectious, inflammatory or postinflammatory. Several tiny bilateral pulmonary nodules measuring up to 4 mm. ?? Depending on patient's risk factors, these could be followed with repeat CT in 12 months. Postop changes in the stomach. Narrative 07/25/2019 6:48 PM BREAD DUMPER EXAM DESCRIPTION: ??CT CHEST W CONTRAST REASON FOR STUDY: ??Shortness of breath for 2 weeks. TECHNIQUE: ??CT angiogram of the chest performed with intravenous contrast using helical scanning technique with dynamic intravenous contrast injection. Reconstructed coronal and sagittal MPR images reviewed. All images stored on PACS. 3D MIP images rendered on scanning unit and reviewed at time of interpretation. Automated exposure control was used as a dose optimization technique for this examination. CONTRAST TYPE/DOSE: ??100 cc Isovue 370 injected via right AC COMPARISON: ??None FINDINGS: ??VASCULATURE: No evidence of pulmonary emboli. ??Normal caliber pulmonary arteries. ??Normal caliber thoracic aorta. LUNGS: No airspace infiltrates. ??No pulmonary mass. ??Minimal nodular interstitial prominence in the right upper lobe. ??2 mm nodule in the lateral left lower lobe on axial image 29, 3 mm nodule in the lateral left upper lobe on axial image 36, 2 mm subpleural nodule in the lateral left lower lobe on axial image 72, 3 mm subpleural nodule in the lateral right upper lobe on axial image 32, and 4 mm nodule in the anterior right upper lobe on axial image 34. ??Minimal subpleural atelectasis in the inferior right middle lobe and in the anteromedial right upper lobe. ??Minimal atelectasis or scarring in the inferior lingula. PLEURA: No effusion. No pneumothorax. MEDIASTINUM/JANET: No identified masses or abnormal nodes. ??Small hiatal hernia. HEART: Heart size is normal with no pericardial effusion. AXILLA: No adenopathy. CHEST WALL: No masses. ??No subcutaneous air. HARDWARE/LINES/TUBES: None. UPPER ABDOMEN: Postop changes in the stomach. MUSCULOSKELETAL: No significant abnormality. OTHER: No significant abnormality. THIS IS AN ELECTRONICALLY VERIFIED FINAL REPORT 07/25/2019 6:45 PM - Electronically signed by Kayode Phelps M.D. DL: DL D: ??07/25/2019 6:45 PM T: ??07/25/2019 6:45 PM Report ID: [id number] Reading Location: ??[id number] Procedure Note Kayode Phelps MD - 07/25/2019 EXAM DESCRIPTION: CT CHEST W CONTRAST REASON FOR STUDY: Shortness of breath for 2 weeks. TECHNIQUE: CT angiogram of the chest performed with intravenous contrast using helical scanning technique with dynamic intravenous contrast injection. Reconstructed coronal and sagittal MPR images reviewed. All images stored on PACS. 3D MIP images rendered on scanning unit and reviewed at time of interpretation. Automated exposure control was used as a dose optimization technique for this examination. CONTRAST TYPE/DOSE: 100 cc Isovue 370 injected via right AC COMPARISON: None FINDINGS: VASCULATURE: No evidence of pulmonary emboli. Normal caliber pulmonary arteries. Normal caliber thoracic aorta. LUNGS: No airspace infiltrates. No pulmonary mass. Minimal nodular interstitial prominence in the right upper lobe. 2 mm nodule in the lateral left lower lobe on axial image 29, 3 mm nodule in the lateral left upper lobe on axial image 36, 2 mm subpleural nodule in the lateral left lower lobe on axial image 72, 3 mm subpleural nodule in the lateral right upper lobe on axial image 32, and 4 mm nodule in the anterior right upper lobe on axial image 34. Minimal subpleural atelectasis in the inferior right middle lobe and in the anteromedial right upper lobe. Minimal atelectasis or scarring in the inferior lingula. PLEURA: No effusion. No pneumothorax. MEDIASTINUM/JANET: No identified masses or abnormal nodes. Small hiatal hernia. HEART: Heart size is normal with no pericardial effusion. AXILLA: No adenopathy. CHEST WALL: No masses. No subcutaneous air. HARDWARE/LINES/TUBES: None. UPPER ABDOMEN: Postop changes in the stomach. MUSCULOSKELETAL: No significant abnormality. OTHER: No significant abnormality. THIS IS AN ELECTRONICALLY VERIFIED FINAL REPORT 07/25/2019 6:45 PM - Electronically signed by Kayode Phelps M.D. DL: SHARON Report ID: [id number] Reading Location: [place] [address] IMPRESSION: No evidence of pulmonary embolus. No airspace infiltrates or effusions. Minimal nodular interstitial prominence in the right upper lobe could be infectious, inflammatory or postinflammatory. Several tiny bilateral pulmonary nodules measuring up to 4 mm. Depending on patient's risk factors, these could be followed with repeat CT in 12 months. Postop changes in the stomach. Tristin Morgan MD IMG CT ORDERABLES Final Result documented in this encounter Visit Diagnoses Diagnosis Edema, unspecified type- Primary SOB (shortness of breath) Shortness of breath Edema, unspecified type SOB (shortness of breath) Shortness of breath documented in this encounter Care Teams Assurance Associate Relationship Specialty Start Date End Date Tristin Morgan MD [address] [place] [address] PCP - General Infectious Disease 07/25/19 documented as of this encounter
--- OUTSIDE RECORDS SUMMARY | 2024-06-18 18:46 | XMS_ITS | Encounter Summary ---
Author Organization [facility] Address [address] [place] [address] Phone Care Team Providers Care Australian Rules Footballer Name Role Phone Tristin Morgan MD Primary Care Provider [phone] Reason for Referral * Radiology Services (Emergency) - Closed Specialty Diagnoses / Procedures Referred By Olga uribe Referred To Contact Radiology Diagnoses Edema, unspecified type SOB (shortness of breath) Procedures CT CHEST W CONTRAST Tristin Morgan MD Phone: tel: fax: Referral ID Status Reason Start Date Expiration Date Visits Re quested Visits Authorized [id number] Closed 07/25/2019 1 1 ACT CENTER ASSOCIATE Reason for Visit * Radiology Services (Emergency) - Closed Specialty Diagnoses / Procedures Referred By Olga uribe Referred To Contact Radiology Diagnoses Edema, unspecified type SOB (shortness of breath) Procedures CT CHEST W CONTRAST Tristin Morgan MD Phone: tel: fax: Referral ID Status Reason Start Date Expiration Date Visits Re quested Visits Authorized [id number] Closed 07/25/2019 1 1 Encounter Details Date Type Department Care Team (Late st Contact Info) Description 07/25/2019 4:55 PM CONTACT CENTER ASSOCIATE - 07/25/2019 11:59 PM CONTACT CENTER ASSOCIATE Hospital Encounter [facility] [address] [place] [phone] Tristin Morgan MD [address], [address] [place] [address] Discharge Disposition: Discharged to home or Selfcare Social History Tobacco Use Types Packs/Day Years Used Date Smoking Tobacco: Never Assessed Comments Unknown Sex and Gender Information Value Date Recorded Sex Assigned at Not on file Legal Sex Female 11:44 PM CDT Gender Identity Not on file Sexual Orientation Not on file documented as of this encounter Plan of Treatment Not on file documented as of this encounter Procedures Procedure Name Priority Date/Time Associated Diagnosis Comments CT CHEST W CONTRAST STAT 07/25/2019 5 :32 PM CONTACT CENTER ASSOCIATE Edema, unspecified type SOB (shortness of breath) POCT CREATININE Routine 07/25/2019 5:22 PM CONTACT CENTER ASSOCIATE documented in this encounter Results * CT CHEST W CONTRAST (07/25/2019 5:32 PM CONTACT CENTER ASSOCIATE) Anatomical Region Laterality Modality Chest N/A Computed Tomogra phy 07/25/2019 6:45 PM CONTACT CENTER ASSOCIATE Impressions 07/25/2019 6:48 PM CONTACT CENTER ASSOCIATE IMPRESSION: ??No evidence of pulmonary embolus. ??No airspace infiltrates or effusions. Minimal nodular interstitial prominence in the right upper lobe could be infectious, inflammatory or postinflammatory. Several tiny bilateral pulmonary nodules measuring up to 4 mm. ?? Depending on patient's risk factors, these could be followed with repeat CT in 12 months. Postop changes in the stomach. Narrative 07/25/2019 6:48 PM CONTACT CENTER ASSOCIATE EXAM DESCRIPTION: ??CT CHEST W CONTRAST REASON [...] PM T: ??07/25/2019 6:45 PM Report ID: [id number] Reading Location: ??[id number] Procedure Note Kayode Phelps MD - 07/25/2019 [...] signed by Kayode Phelps M.D. DL: DL Report ID: [id number] Reading Location: [id number] IMPRESSION: No evidence of pulmonary embolus. No airspace infiltrates or effusions. Minimal nodular interstitial prominence in the right upper lobe could be infectious, inflammatory or postinflammatory. Several tiny bilateral pulmonary nodules measuring up to 4 mm. Depending on patient's risk factors, these could be followed with repeat CT in 12 months. Postop changes in the stomach. us Tristin Morgan MD [facility] [place] ORDERABLES Final Result * POCT Creatinine (07/25/2019 5:22 PM CONTACT CENTER ASSOCIATE) CREATININE - POCT 0.7 0.6 - 1.3 mg/dL 07/25/2019 5:26 PM CONTACT CENTER ASSOCIATE [facility] Blood specimen (specimen) 07/25/2019 5:22 PM CONTACT CENTER ASSOCIATE 07/25/2019 5:26 PM CONTACT CENTER ASSOCIATE us Tristin Morgan MD POINT OF CARE TESTING Final Re sult [facility] [address] [address] documented in this encounter Visit Diagnoses Diagnosis Edema, unspecified type SOB (shortness of breath) Shortness of breath documented in this encounter Administered Medications Inactive Administered Medications - up to 3 most recent administrations Medication Order MAR Action Action Date Dose Rate Site iopamidol (ISOVUE-370) 76 % injection 100 mL 100 mL, Intravenous, ONCE, 1 dose, On [place] 07/25/19 at 1800 Given 07/25/2019 5:30 PM CONTACT CENTER ASSOCIATE 100 mL documented in this encounter Care Teams Australian Rules Footballer Relationship Specialty Start Date End Date Tristin Morgan MD [address], [address] [place] [address] PCP - General Infectious Disease 07/25/19 documented as of this encounter
--- OUTSIDE RECORDS SUMMARY | 2024-06-18 18:46 | XMS_ITS | Encounter Summary ---
Author Organization [facility] Care Team Providers Care Weatherization Coordinator Name Role Phone Tristin Morgan MD Primary Care Provider [phone] Encounter Details Date Type Department Care Team (Latest Contact Info) Description 07/25/2019 Travel Social History Tobacco Use Types Packs/Day Years Used Date Smoking Tobacco: Never Assessed Comments Unknown Sex and Gender Information Value Date Recorded Sex Assigned at Not on file Legal Sex Female 11:44 PM CDT Gender Identity Not on file Sexual Orientation Not on file documented as of this encounter Plan of Treatment Not on file documented as of this encounter Visit Diagnoses Not on filedocumented in this encounter Care Teams Weatherization Coordinator Relationship Specialty Start Date End Date Tristin Morgan MD [address], [address] [place] [address] PCP - General Infectious Disease 07/25/19 documented as of this encounter
--- OUTSIDE RECORDS SUMMARY | 2024-06-18 18:47 | XMS_ITS | Encounter Summary ---
Author Organization [facility] Address [address] [place] [address] Care Team Providers Care Mixing Technician Name Role Phone Pepper Morgan MD Primary Care Provider [phone] Hank Garibay MD Unavailable [phone] Jacky Murry MD Unavailable [phone] Puma Mckenzie MD Unavailable [phone] Neha Jackson PT Unavailable Unavailable Stalin Arauz MD Unavailable [phone] Tiffany Rojas Unavailable [phone] Klaus Deshpande MD Unavailable [phone] Encounter Details Date Type Department Care Team (Late st Contact Info) Description 04/15/2024 Telephone [place] Manager Athletics at [address] [place] [phone] Hai Dalton MA Social History Tobacco Use Types Packs/Day Years Used Date Smoking Tobacco: Former Cigarettes 2 30 1 952 - 1982 Smokeless Tobacco: Never Alcohol Use Standard Drinks/Week Comments Not Currently 0 (1 standard drink = 0.6 oz pur e alcohol) [facility] Utilities Answer Date Recorded In the past 12 months has [employer], gas, oil, or water company threatened to shut off services in your home? No 04/11/2024 Social Connection and Isolat ion Panel [NHANES] Answer Date Recorded In a typical week, how many times do you talk on the phone with family, friends, or neighbors? More than three times a week 04/11/2024 How often do you get togethe r with friends or relatives? More than three times a week 04/11/2024 How often do you attend chur ch or yazidism services? Never 04/11/2024 Do you belong to any clubs o r organizations such as sikh groups, unions, fraternal or athletic groups, or school groups? No 04/11/2024 How often do you attend meet ings of the clubs or organizations you belong to? Never 04/11/2024 Are you , , di vorced, , never , or living with a partner? 04/11/2024 AUDIT-C Answer Date Recorded Q1: How often do you have a drink containing alcohol? Never 04/10/2024 Q2: How many drinks containi ng alcohol do you have on a typical day when you are drinking? Patient does not drink Q3: How often do you have si x or more drinks on one occasion? Never 04/10/2024 Overall Financial Resource Strain (CARDIA) Answe r Date Recorded How hard is it for you to pa y for the very basics like food, housing, medical care, and heating? Not very hard 04/11/2024 PHQ-2 Answer Date Recorded PHQ-2 Total Score (If total score is 3 or more points, staff should administer the PHQ-9) 1 07/13/2023 Hunger Vital Sign Answer Date Recorded Within the past 12 months, y ou worried that your food would run out before you got the money to buy more. Never true 04/11/20 Within the past 12 months, t he food you bought just didn't last and you didn't have money to get more. Never true 04/11/2024 PRAPARE - Transportation Answer Date Re corded In the past 12 months, has l ack of transportation kept you from medical appointments or from getting medications? No 03/20 In the past 12 months, has l ack of transportation kept you from meetings, work, or from getting things needed for daily living? No 04/11/2024 Housing Stability Vital Sign Answer Neville e Recorded In the last 12 months, was t here a time when you were not able to pay the mortgage or rent on time? No 07/24/2023 In the last 12 months, how many places have you lived? 1 07/24/2023 In the last 12 months, was t here a time when you did not have a steady place to sleep or slept in a usp (including now)? No 07/24/2023 Housing Stability Vital Sign Answer Neville e Recorded In the last 12 months, was t here a time when you were not able to pay the mortgage or rent on time? No 04/11/2024 In the past 12 months, how m any times have you moved where you were living? 0 04/11/2024 At any time in the past 12 m onths, were you homeless or living in a usp (including now)? No 04/11/2024 Personal Safety Answer Date Recorded Have you ever been in or are you currently in a harmful physical or emotional relationship or is someone making you feel afraid or unsafe? Denies 04/10/2024 Education Answer Date Recorded What is the highest level of school you have completed or the highest degree you have received? High school graduate 04/11/2024 Comments No Sex and Gender Information Value Date Recorded Sex Assigned at Not on file Legal Sex Female 4:33 AM CARE SUPPORT REPRESENTATIVE Gender Identity Not on file Sexual Orientation Not on file Occupation Industry Job Start Date Job End Date retired Not on file Not on file Not on file documented as of this encounter Miscellaneous Notes * Telephone Encounter - aHi Dalton MA - 04/16/2024 8:11 AM CDT advised * Telephone Encounter - Hai Dalton MA - 04/15/2024 11:08 AM CDT Patient called stating that her legs are swelling and that she has a black spot on her leg. She states that her weight has been going down about a lb a day. documented in this encounter Plan of Treatment Not on file documented as of this encounter Goals Goal Patient Goal Type Associated Problems Recent Progress Patient-Stated? Author BH-Pain Behavioral Health Improving( 3:34 PM CDT) Domitila Gaston, RN Note: Patient will establish a comfort-function goal and identify the pain level that will allow the patient to perform desired activities and achieve an acceptable quality of life. documented as of this encounter Visit Diagnoses Not on filedocumented in this encounter Care Teams Mixing Technician Relationship Specialty Start Date End Date Pepper Morgan MD PCP - General 09/16/16 Hank Garibay MD [address] [place] [address] Surgeon Orthopedic Surgery 03/27/17 Jacky Murry MD [address] [place] [address] Ophthalmology 03/27/17 Puma Mckenzie MD [address] [place] [address] Surgeon Orthopedic Surgery 07/11/19 Neha Jackson, KEVIN Physical Therapist Physical Therapy 12/01/21 Stalin Arauz MD [address] [place] [address] Consulting Physician Cardiology 12/08/22 Tiffany Rojas PA [address] [place] [address] Gastroenterology 12/30/22 Klaus Deshpande MD NPI: [id number] [place] [address] [address] [place] [address] Consulting Physician Neurology 06/13/23 documented as of this encounter
--- OUTSIDE RECORDS SUMMARY | 2024-06-18 18:47 | XMS_ITS | Encounter Summary ---
Author Organization [facility] Address [address] [place] [address] Care Team Providers Care Aeronautical Engineering Officer Name Role Phone Pepper Morgan MD Primary Care Provider + [phone] Hank Garibay MD Unavailable [phone] Jacky Murry MD Unavailable [phone] Puma Mckenzie MD Unavailable [phone] Neha Jackson PT Unavailable Unavailable Stalin Arauz MD Unavailable [phone] Tiffany Rojas PA Unavailable [phone] Klaus Deshpande MD Unavailable [phone] Reason for Visit * Auth/Cert (Routine) Specialty Diagnoses / Procedures Referred By Contac t Referred To Contact Diagnoses DANNY (acute kidney injury) (HCC) Acute on chronic congestive heart failure, unspecified heart failure type (HCC) Procedures na Referral ID Status Reason Start Date Expiration Date Visits Re quested Visits Authorized [id number] 1 1 Encounter Details Date Type Department Care Team (Late st Contact Info) Description 04/10/2024 9:40 AM CDT [address] [address] Chronic heart failure with preserved ejection fraction (CMS/HCC) (HCC) Social History Tobacco Use Types Packs/Day Years Used Date Smoking Tobacco: Former Cigarettes 2 30 1 952 - 1982 Smokeless Tobacco: Never Alcohol Use Standard Drinks/Week Comments Not Currently 0 (1 standard drink = 0.6 oz pur e alcohol) [facility] Utilities Answer Date Recorded In the past 12 months has th e electric, gas, oil, or water company threatened to [...] often do you attend chur ch or scientology services? Never 04/11/2024 Do you belong to any clubs o r organizations such as presybeterian groups, unions, fraternal or athletic groups, or [...] place to sleep or slept in a detention (including now)? No 07/24/2023 Housing Stability Vital Sign Answer Neville e Recorded In the last 12 months, was t here a time when you were not able to pay the mortgage or rent on time? No 04/11/2024 In the past 12 months, how m any times have you moved where you were living? 0 04/11/2024 At any time in the past 12 m [facility], were you homeless or living in a detention (including now)? No 04/11/2024 Personal Safety Answer Date Recorded Have you ever been in or are you currently in a harmful physical or emotional relationship or is someone making you feel afraid or unsafe? 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 Author BH-Pain Behavioral Health Improving( 3:34 PM CDT) No Domitila Garay, XU Note: Patient will establish a comfort-function goal and identify the pain level that will allow the patient to perform desired activities and achieve an acceptable quality of life. documented as of this encounter Procedures Procedure Name Priority Date/Time Associated Diagnosis Comments EGFR Routine 04/10/2024 9:52 AM CDT Chronic heart failure with preserved ejection fraction (CMS/HCC) (HCC) PRO B-TYPE NATRIURETIC PEPTIDE Routine 04/10/2024 9:52 AM CDT Chronic heart failure with preserved ejection fraction (CMS/HCC) (HCC) BASIC METABOLIC PANEL Routine 04/10/2024 9:52 AM CDT Chronic heart failure with preserved ejection fraction (CMS/HCC) (HCC) documented in this encounter Results * (ABNORMAL) eGFR (04/10/2024 9:52 AM CDT) eGFR 27(L) >=60 mL/min/1. 73 m2 Comment: Interpretive Data Reference Interval Normal ?>/= 90 mL/min/1.73m2 Mildly decreased* ? 60 - 89 mL/min/1.73m2 Mildly to moderately decreased ?45 - 59 mL/min/1.73m2 Moderately to severely decreased ??30 - 44 mL/min/1.73m2 Severely decreased ?15 - 29 mL/min/1.73m2 Kidney Failure ?< 15 ??mL/min/1.73m2 *Relative to young adult level Estimated glomerular filtration rate is determined by the 2020 CKD-EPI equation recommended by the National Kidney Foundation (A Unifying Approach to GFR Estimation: Recommendations of the NKF-ASK Task Force on Reassessing the Inclusion of Race in Diagnosing Kidney Disease, JASN 202). The CKD-EPI equation should not be used for patients with unstable renal function and has not been validated in children and those over 70. Current interpretive data was last reviewed 2021. Blood 04/10/2024 9:52 AM CDT 04/10/2024 10:39 AM CDT Maude Harris COMMERCIAL TELLER LAB BLOOD ORDERABLES Fi nal Result [facility] ([place]) [address] [facility] [employer] [place] [address] * (ABNORMAL) Basic metabolic panel (04/10/2024 9:52 AM CDT) Sodium 133(L) 135 - 145 mmol/L Potassium, pl 3.6 3.3 - 4.9 mmol/L [facility] ([place]) Chloride 89(L) 97 - 110 mmol/L [facility] ([place]) CO2 33(H) 22 - 32 mmol/L [facility] ([place]) Anion gap 12 2 - 15 mmol/L [facility] ([place]) BUN 76(H) 6 - 25 mg/dL [facility] ([place]) Creatinine 1.82(H) 0.60 - 1.10 mg/dL [facility] ([place]) Glucose 86 70 - 199 mg/dL [facility] Comment: Interpretive Data Fasting glucose >/= 126 mg/dl is diagnostic for diabetes. ?? Fasting is defined as no caloric intake for at least 8 hours. Fasting glucose between 100 mg/dl to 125 mg/dl is diagnostic of prediabetes. In a patient with classic symptoms of hyperglycemia or hyperglycemic crisis, a random glucose >/= 200 mg/dl is diagnostic for diabetes. In the absence of unequivocal hyperglycemia, results should be confirmed by repeat testing. The classification and Diagnosis of Diabetes Diabetes Care 2021; 46: S19-S40. Current interpretive data was last revised 2022. Calcium 9.6 8.5 - 10.3 mg/dL [facility] ([place]) Blood 04/10/2024 9:52 AM CDT 04/10/2024 10:39 AM CDT Maude Harris COMMERCIAL TELLER LAB BLOOD ORDERABLES Fi nal Result [facility] ([place]) [address] [facility] [employer] [place] [address] * (ABNORMAL) Pro B-type natriuretic peptide (04/10/2024 9:52 AM CDT) NT-proBNP 6,298(H) <=450 pg/mL Comment: Interpretive Comments: A. Dyspnea in Acute Care Setting All Ages: ?< 300 pg/ml, acute heart failure unlikely. < 50 yrs: ?300 - 450 pg/ml, further investigation warranted. ? > 450 pg/ml, acute heart failure likely. 50 - 74 yrs: ? 300 - 900 pg/ml, further investigation warranted. ? > 900 pg/ml, acute heart failure likely . > or = 75 yrs: ? 450 - 1800 pg/ml, further investigation warranted. ? > 1800 pg/ml, acute heart failure likely. B. Non-acute Setting < 75 yrs ? < 125 pg/ml, rules out heart failure. ? > or = 125 pg/ml, further investigation warranted. > or = 75 yrs ?< 450 pg/ml, rules out heart failure. ? > or = 450 pg/ml, further investigation warranted. - Knowledge of each individual patient's NT-proBNP range may be more useful than using similar cut-points for every patient. Please note that marked elevations in NT-proBNP levels may be observed in state other than Left Ventricular Congestive Failure, including: acute coronary syndromes, right heart strain/failure (including pulmonary embolism and cor pulmonale), critical illness, renal failure, as well as advanced age. - References: 1. Lizeth WYNN et.al. Eur Heart J. 2006:27:330-337. 2. Hayden RW, Iman ETIENNE. J. AM Sahra Cardiol: Cardiovasc Imag. 2009;2: 216- 225. Interpretive Data Last Revised Date: 2018. Blood 04/10/2024 9:52 AM CDT 04/10/2024 10:39 AM CDT Maude Harris COMMERCIAL TELLER LAB BLOOD ORDERABLES Fi nal Result [facility] ([place]) [facility] [place] [address] documented in this encounter Visit Diagnoses Diagnosis Chronic heart failure with preserved ejection fraction (CMS/HCC) (HCC) documented in this encounter Care Teams Aeronautical Engineering Officer Relationship Specialty Start Date End Date Pepper Morgan MD PCP - General 09/16/16 Hank Garibay MD [address] [facility] [address] [place] [address] Surgeon Orthopedic Surgery 03/27/17 Jacky Murry MD [address] [facility] [address] [place] [address] Ophthalmology 03/27/17 Puma Mckenzie MD [address] [facility] [address] [place] [address] Surgeon Orthopedic Surgery 07/11/19 Neha Jackson, PT Physical Therapist Physical Therapy 12/01/21 Stalin Arauz MD [address] [facility] [address] [place] [address] Consulting Physician Cardiology 12/08/22 Tiffany Rojas PA [address] [facility] [address] [place] [address] Gastroenterology 12/30/22 Klaus Deshpande MD [address] [facility] [address] [place] [address] Consulting Physician Neurology 06/13/23 documented as of this encounter
--- OUTSIDE RECORDS SUMMARY | 2024-06-18 18:47 | XMS_ITS | Encounter Summary ---
Author Organization [facility] Address [address] [place] [address] Care Team Providers Care [employer] Coxswain Name Role Phone Pepper Morgan MD Primary Care Provider + [phone] Hank Garibay MD Unavailable [phone] Jacky Murry MD Unavailable [phone] Puma Mckenzie MD Unavailable [phone] Neha Jackson PT Unavailable Unavailable Stalin Arauz MD Unavailable [phone] Tiffany Rojas Unavailable [phone] Klaus Deshpande MD Unavailable [phone] Reason for Referral * Consultation (Routine) - Authorized Specialty Diagnoses / Procedures Referred By Contac t Referred To Contact Nephrology Diagnoses CKD stage 3b, GFR 30-44 ml/min ([facility]) Stalin Arauz MD [address] [place] [address] [address] [place] [address] Phone: tel: fax: Kristin Guillen MD [address] [place] [address] [address] [place] [address] Phone: tel: fax: Referral ID Status Reason Start Date Expiration Date Visits Requested Visits Authorized [id number] Authorized Specialty Services Required 4 05/30/2025 1 1 Question Answer Please select the performing region: External Order [171] To provider: KRISTIN GUILLEN [[id number]] # of visits: 1 EN ROOM OPERATOR Encounter Details Date Type Department Care Team (Late st Contact Info) Description 04/30/2024 Orders Only [employer]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 at [address] [place] [address] Stalin Arauz MD [address] [place] [address] [address] [place] [address] CKD stage 3b, GFR 30-44 ml/min (HCC) (Primary Dx) Social History Tobacco Use Types Packs/Day Years Used Date Smoking Tobacco: Former Cigarettes 1981 Smokeless Tobacco: Never Alcohol Use Standard Drinks/Week Comments Not Currently 0 (1 standard drink = 0.6 oz pur e alcohol) [facility] Utilities Answer Date Recorded In the past 12 months has [employer] electric, gas, oil, or water company threatened [...] often do you attend chur ch or presybeterian services? Never 04/11/2024 Do you belong to any clubs o r organizations such as sabianism groups, unions, fraternal or athletic groups, or [...] place to sleep or slept in a halfway (including now)? No 07/24/2023 Housing Stability Vital Sign Answer Neville e Recorded In the last 12 months, was t here a time when you were not able to pay the mortgage or rent on time? No 04/11/2024 In the past 12 months, how m any times have you moved where you were living? 0 04/11/2024 At any time in the past 12 m [facility], were you homeless or living in a halfway (including now)? 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 Author BH-Pain Behavioral Health Improving( 3:34 PM CDT) Domitila Gaston, XU Note: Patient will establish a comfort-function goal and identify the pain level that will allow the patient to perform desired activities and achieve an acceptable quality of life. documented as of this encounter Visit Diagnoses Diagnosis CKD stage 3b, GFR 30-44 ml/min (HCC)- Primary documented in this encounter Care Teams [employer] Coxswain Relationship Specialty Start Date End Date Pepper Morgan MD PCP - General 09/16/16 Hank Garibay MD [address] [place] [address] [address] [place] [address] Surgeon Orthopedic Surgery 03/27/17 Jacky Murry MD [address] [place] [address] [address] [place] [address] Ophthalmology 03/27/17 Puma Mckenzie MD [address] [place] [address] [address] [place] [address] Surgeon Orthopedic Surgery 07/11/19 Neha Jackson, PT Physical Therapist Physical Therapy 12/01/21 Stalin Arauz MD [address] [facility] [address] [place] [address] Consulting Physician Cardiology 12/08/22 Tiffany Rojas PA [address] [facility] [address] [place] [address] Gastroenterology 12/30/22 Klaus Deshpande MD [address] [facility] [address] [place] [address] Consulting Physician Neurology 06/13/23 documented as of this encounter
--- OUTSIDE RECORDS SUMMARY | 2024-06-18 18:47 | XMS_ITS | Encounter Summary ---
Author Organization [facility] Healthcare Address [address] [place] [address] Care Team Providers Care Pot Puller Name Role Phone Pepper Morgan MD Primary Care Provider [phone] Hank Garibay MD Unavailable [phone] Jacky Murry MD Unavailable [phone] Puma Mckenzie MD Unavailable [phone] Neha Jackson PT Unavailable Unavailable Stalin Arauz MD Unavailable [phone] Tiffany Rojas Unavailable [phone] Klaus Deshpande MD Unavailable [phone] Encounter Details Date Type Department Care Team (Late st Contact Info) Description 05/07/2024 3:45 PM BANK RECONCILIATOR Telemedicine [facility] [address] [place] [id number] Pepper Morgan MD [address] [id number] Infected abrasion of right lower extremity, initial encounter (Primary Dx); Acute on chronic heart failure with preserved ejection fraction (CMS/HCC) (HCC); CKD stage 3b, GFR 30-44 ml/min (HCC); Immunization counseling Social History Tobacco Use Types Packs/Day Years Used Date Smoking Tobacco: Former Cigarettes 2 30 1 95 - 1981 Smokeless Tobacco: Never Alcohol Use Standard Drinks/Week Comments Not Currently 0 (1 standard drink = 0.6 oz pur e alcohol) [facility] Utilities Answer Date Recorded In the past [...] often do you attend chur ch or amish services? Never 04/11/2024 Do you belong to any clubs o r organizations such as restorationist groups, unions, fraternal or athletic groups, or [...] place to sleep or slept in a fci (including now)? No 07/24/2023 Housing Stability Vital Sign Answer Neville e Recorded In the last 12 months, was t here a time when you were not able to pay the mortgage or rent on time? No 04/11/2024 In the past 12 months, how m any times have you moved where you were living? 0 04/11/2024 At any time in the past 12 m [facility], were you homeless or living in a fci (including now)? No 04/11/2024 Personal Safety Answer [...] on file Legal Sex Female 4:33 AM BANK RECONCILIATOR Gender Identity Not on file Sexual Orientation Not on file Occupation Industry Job Start Date Job End Date retired Not on file Not on file Not on file documented as of this encounter Patient Instructions * Patient Instructions* Pepper Morgan MD - 05/07/2024 3:45 PM BANK RECONCILIATOR Tess Eldridge Shewmake to review this After Visit Summary ( AVS ) for accuracy & contact us if you find need for changes. == YOUR NEXT FOLLOW-UP Return in about 4 months (around 08/26/2024) for Next scheduled follow up: Call sooner if not improve. ORDERS FOR AMS STAFF TO ARRANGE: 1. Remind her to get the following immunizations at pharmacy tomorrow when she picks up her antibiotics Prevnar 20 RSV vaccine NovaVax COVID booster MEDICATION CHANGES RECOMMENDED TODAY: Keflex 500 mg 2 times daily for 7 days for right leg infection Soap and water wash and pat dry. Do not apply any ointment Apply a Barnhill transparent dressing 2-1/2 x 2-1/2 inch to cover lesion each week. You may bathe with the use of the dressing. Call the office if you have trouble with this wound The MEDICATION LIST that your providers BELIEVE YOU ARE TAKING The Complete MEDICATION LIST at conclusion of visit 05/07/2024 Current Outpatient Medications: acetaminophen (TYLENOL) 500 mg tablet albuterol HFA (Proventil HFA) 90 mcg/actuation inhaler allopurinoL (ZYLOPRIM) 100 mg tablet apixaban (ELIQUIS) 2.5 mg tablet ascorbic acid, vitamin C, 250 mg tablet,chewable atorvastatin (LIPITOR) 20 mg tablet carbamide peroxide (DEBROX) 6.5 % otic solution cephalexin (KEFLEX) 500 mg capsule cetirizine (ZyrTEC) 10 mg tablet cholecalciferol (VITAMIN D-3) 2000 unit tablet empagliflozin (JARDIANCE) 10 mg tablet Ferrocite 324 mg (106 mg iron) tablet fluticasone propion-salmeteroL (ADVAIR DISKUS) 100-50 mcg/dose diskus inhaler furosemide (LASIX) 80 mg tablet gabapentin (NEURONTIN) 100 mg capsule metOLazone (ZAROXOLYN) [address] (PROTONIX) 40 mg EC tablet polyethylene glycol (MIRALAX) 17 gram packet pramipexole (MIRAPEX) 0.75 mg tablet propranoloL (INDERAL) 20 mg tablet spironolactone (ALDACTONE) 25 mg tablet vericiguat (Verquvo) 2.5 mg tablet ALLERGIES Allergies Allergen Reactions Celecoxib Anaphylaxis Scopolamine Mental status changes Delirium postop after joint replacement due to this medicine Sulfa (Sulfonamide Antibiotics) Anaphylaxis Amlodipine Swelling Lisinopril Swelling Trazodone Swelling Tongue Duloxetine Hcl Unknown Cipro [Ciprofloxacin Hcl] Vomiting Cymbalta [Duloxetine] Fatigue Sleepiness, tiredness possibly related to 20 mg morning dose of this medicine discontinued 11/30/2020 Sinemet [Carbidopa-Levodopa] Other (See comments) Night hines HOME SAFETY: Motion activated hallway and bedroom lighting --AND-- removal of throw rugs from the home has been found in multiple studies to prevent falls and injuries. I recommend installing MOTION ACTIVATED LIGHTING for nighttime safety and REMOVAL OF ALL THROW RUGSFROM HOME = consider Stone bath mats made of diatomaceous Earth, these are non-slip and absorbent. PLEASE REVIEW this CARE TEAM and advise our medical staff of any need for INCLUSIONS OR DELETIONS from this team list This will assist in keeping your medical provider team informed of important changes in your health. Patient Care Team: Pepper Morgan MD as PCP - General Hank Garibay MD as Surgeon (Orthopedic Surgery) Jacky Murry MD (Ophthalmology) Puma Mckenzie MD as Surgeon (Orthopedic Surgery) Neha Jackson PT as Physical Therapist (Physical Therapy) Stalin Arauz MD as Consulting Physician (Cardiology) Tiffany Rojas PA (Gastroenterology) Klaus Deshpande MD as Consulting Physician (Neurology) Primary Pharmacy/DME suppliers[id number] [address] [facility] [address] Please inform us if you have a change before follow-up visit For further INTERNET RESEARCH on your medical concerns: I recommend [email or web address] = the [employer] library of medicine online site. This is a consistently reliable site for your personal medical research. IMMUNIZATIONS general recommendations for immunizations at age 60 and over RSV vaccine --this is recommended ONCE for all persons 60 and over Shingrix //recommended in all persons over 50// Shingrix is a 2 shot series--the shots should be by at least 6 weeks and up to 6-month Immunizations that are due in early March HIGH DOSE FLU SHOT Updated BIVALENT COVID BOOSTER--ask for the NovaVax Your immunization record Immunization History Administered Date(s) Administered COVID-19 mRNA (Istpika) 0.3 mL (30 mcg) vaccine (12 years and up) 03/24/2023 Influenza, Quad, Adjuvantated, Intramuscular 03/10/2022 Influenza, Quadrivalent, High Dose, Preservative Free, Intrr 03/31/2020, 04/13/2021, 03/24/2023 Influenza, Quadrivalent, Split, Intramuscular 03/28/2016, 04/04/2017 Influenza, Split 05/18/2012 Influenza, Trivalent, Adjuvanted, Intramuscular 04/17/2019 Influenza, Trivalent, High Dose, Split, Preservative Free, Intramuscular 03/23/2015, 03/12/2018, 04/17/2019 Influenza, Trivalent, IM (MDV) 03/25/2014, 04/17/2015 Influenza, Unspecified 03/13/2018, 03/19/2021, 03/10/2022, 03/24/2023, 03/19/2024 Pfizer SARS-CoV-2 Monovalent Vaccination (12+ Yrs) DOSS-READY TO USE 01/11/2022 Pfizer SARS-CoV-2 Monovalent Vaccination (12+ Yrs) PURPLE 08/15/2020, 09/06/2020, 03/14/2021 Pfizer Sars-Cov-2 Bivalent Vaccination (12+ YRS) 04/01/2022 Pneumococcal Conjugate PCV 13 02/18/2015 Pneumococcal Polysaccharide PPV23 05/17/2002, 04/26/2016 Tdap 05/18/2011, 08/23/2021 ZOSTER Recombinant 12/02/2020, 02/23/2021 ----------------------------> To keep up with emerging viruses and COVID science evidence I recommend the podcast TWIV episodes posted every Monday are with Dr. Slick Pa and talk about COVID PLANNING FOR possible COVID INFECTIONS Be certain that you have been immunized, full immunization for COVID = 3 total COVID shots Testing and evaluation for COVID if you get a cold = runny nose plus sore throat could be COVID -day 0 = Onset of symptoms = sore throat, runny nose, cough -day 1. = perform a Nasal COVID test on the morning of day 1 and if POSITIVE call the office for medication- [ available ] -if negative test again in 48 hours= on day 4 -day 2. And 3 No testing is done on day 2 or 3 -day 4 = perform a Nasal COVID test on morning of day 4 and if POSITIVE call the office for medication- [ available ] , if negative no further testing as needed. there are medication treatments for COVID Paxlovid is the highly effective antiviral used to treat COVID most patients can use this medicine. If you have chronic kidney disease there are limited options for treatment. We would plan remdesivir infusion daily for 3 days or less effective MOLNUPIRAVIR 800 MG BID X 5D pills should you become ill with COVID-19. This will require transportation to [facility] daily for 3 days to complete your course ofcare PLANNING FOR possible INFLUENZA INFECTIONS Take your yearly flu shot in March, [ We take the flu shot to prevent dying from Influenza = the flu. ] Influenza causes fever and muscle aches. If you have these symptoms you will need to go to the Office or a quick care clinic for testing Antiviral therapy = Tamiflu= is available but needs to be started within the 1st 24-72 hours of symptoms. Please be evaluated immediately if you have these symptoms. RECONCILIATOR RECONCILIATOR RECONCILIATOR RECONCILIATOR RECONCILIATOR RECONCILIATOR documented in this encounter Ordered Prescriptions Prescription Sig Dispense Quantity Refills Last Filled Start Date End Date cephalexin (KEFLEX) 500 mg capsuleIndications :Infected abrasion of right lower extremity, initial encounter Take 1 capsule (500 mg total) by mouth 2 (two) times a day for 7 days 14 capsule 05/07/2024 documented in this encounter Progress Notes * Pepper Morgan MD - 05/07/2024 3:45 PM CST Patient ID: Tess Benedict is a 88 y.o. female.visiting electronically today via TELEMEDICINE ENCOUNTER to discuss her new skin lesion on le ASSESSMENT AND PLAN Patient Instructions Tess Benedict to review this After Visit Summary ( AVS ) for accuracy & contact us if you find need for changes. == YOUR NEXT FOLLOW-UP Return in about 4 months (around 08/26/2024) for Next scheduled follow up: Call sooner if not improve. ORDERS FOR AMS STAFF TO ARRANGE: 1. Remind her to get the following immunizations at pharmacy tomorrow when she picks up her antibiotics Prevnar 20 RSV vaccine NovaVax COVID booster MEDICATION CHANGES RECOMMENDED TODAY: Keflex 500 mg 2 times daily for 7 days for right leg infection Soap and water wash and pat dry. Do not apply any ointment Apply a Barnhill transparent dressing 2-1/2 x 2-1/2 inch to cover lesion each week. You may bathe with the use of the dressing. Call the office if you have trouble with this wound The MEDICATION LIST that your providers BELIEVE YOU ARE TAKING The Complete MEDICATION LIST at conclusion of visit 05/07/2024 Current Outpatient Medications: ??? acetaminophen (TYLENOL) 500 mg tablet ??? albuterol HFA (Proventil HFA) 90 mcg/actuation inhaler ??? allopurinoL (ZYLOPRIM) 100 mg tablet ??? apixaban (ELIQUIS) 2.5 mg tablet ??? ascorbic acid, vitamin C, 250 mg tablet,chewable ??? atorvastatin (LIPITOR) 20 mg tablet ??? carbamide peroxide (DEBROX) 6.5 % otic solution ??? cephalexin (KEFLEX) 500 mg capsule ??? cetirizine (ZyrTEC) 10 mg tablet ??? cholecalciferol (VITAMIN D-3) 2000 unit tablet ??? empagliflozin (JARDIANCE) 10 mg tablet ??? Ferrocite 324 mg (106 mg iron) tablet ??? fluticasone propion-salmeteroL (ADVAIR DISKUS) 100-50 mcg/dose diskus inhaler ??? furosemide (LASIX) 80 mg tablet ??? gabapentin (NEURONTIN) 100 mg capsule ??? metOLazone (ZAROXOLYN) 5 mg tablet ??? pantoprazole DR (PROTONIX) 40 mg EC tablet ??? polyethylene glycol (MIRALAX) 17 gram packet ??? pramipexole (MIRAPEX) 0.75 mg tablet ??? propranoloL (INDERAL) 20 mg tablet ??? spironolactone (ALDACTONE) 25 mg tablet ??? vericiguat (Verquvo) 2.5 mg tablet ALLERGIES Allergies Allergen Reactions ??? Celecoxib Anaphylaxis ??? Scopolamine Mental status changes Delirium postop after joint replacement due to this medicine ??? Sulfa (Sulfonamide Antibiotics) Anaphylaxis ??? Amlodipine Swelling ??? Lisinopril Swelling ??? Trazodone Swelling Tongue ??? Duloxetine Hcl Unknown ??? Cipro [Ciprofloxacin Hcl] Vomiting ??? Cymbalta [Duloxetine] Fatigue Sleepiness, tiredness possibly related to 20 mg morning dose of this medicine discontinued 11/30/2020 ??? Sinemet [Carbidopa-Levodopa] Other (See comments) Night hines HOME SAFETY: Motion activated hallway and bedroom lighting --AND-- removal of throw rugs from the home has been found in multiple studies to prevent falls and injuries. I recommend installing MOTION ACTIVATED LIGHTING for nighttime safety and REMOVAL OF ALL THROW RUGSFROM HOME = consider Stone bath mats made of diatomaceous Earth, these are non-slip and absorbent. PLEASE REVIEW this CARE TEAM and advise our medical staff of any need for INCLUSIONS OR DELETIONS from this team list This will assist in keeping your medical provider team informed of important changes in your health. Patient Care Team: Pepper Morgan MD as PCP - General Hank Garibay MD as Surgeon (Orthopedic Surgery) Jacky Murry MD (Ophthalmology) Puma Mckenzie MD as Surgeon (Orthopedic Surgery) Neha Jackson PT as Physical Therapist (Physical Therapy) Stalin Arauz MD as Consulting Physician (Cardiology) Tiffany Rojas PA (Gastroenterology) Klaus Deshpande MD as Consulting Physician (Neurology) Primary Pharmacy/DME suppliers[id number] [place] [facility] [address] [facility] [id number] Please inform us if you have a change before follow-up visit For further INTERNET RESEARCH on your medical concerns: I recommend [email or web address] = the [employer] library of medicine online site. This is a consistently reliable site for your personal medical research. IMMUNIZATIONS general recommendations for immunizations at age 60 and over RSV vaccine --this is recommended ONCE for all persons 60 and over Shingrix //recommended in all persons over 50// Shingrix is a 2 shot series--the shots should be by at least 6 weeks and up to 6-month Immunizations that are due in early March HIGH DOSE FLU SHOT Updated BIVALENT COVID BOOSTER--ask for the NovaVax Your immunization record Immunization History Administered Date(s) Administered ??? COVID-19 mRNA (PFIZER) 0.3 mL (30 mcg) vaccine (12 years and up) 03/24/2023 ??? Influenza, Quad, Adjuvantated, Intramuscular 03/10/2022 ??? Influenza, Quadrivalent, High Dose, Preservative Free, Intrr 03/31/2020, 04/13/2021, 03/24/2023 ??? Influenza, Quadrivalent, Split, Intramuscular 03/28/2016, 04/04/2017 ??? Influenza, Split 05/18/2012 ??? Influenza, Trivalent, Adjuvanted, Intramuscular 04/17/2019 ??? Influenza, Trivalent, High Dose, Split, Preservative Free, Intramuscular 03/23/2015, 03/12/2018, 04/17/2019 ??? Influenza, Trivalent, IM (MDV) 03/25/2014, 04/17/2015 ??? Influenza, Unspecified 03/13/2018, 03/19/2021, 03/10/2022, 03/24/2023, 03/19/2024 ??? Pfizer SARS-CoV-2 Monovalent Vaccination (12+ Yrs) DOSS-READY TO USE 01/11/2022 ??? Pfizer SARS-CoV-2 Monovalent Vaccination (12+ Yrs) PURPLE 08/15/2020, 09/06/2020, 03/14/2021 ??? Pfizer Sars-Cov-2 Bivalent Vaccination (12+ YRS) 04/01/2022 ??? Pneumococcal Conjugate PCV 13 02/18/2015 ??? Pneumococcal Polysaccharide PPV23 05/17/2002, 04/26/2016 ??? Tdap 05/18/2011, 08/23/2021 ??? ZOSTER Recombinant 12/02/2020, 02/23/2021 ----------------------------> To keep up with emerging viruses and COVID science evidence I recommend the podcast TWIV episodes posted every Monday are with Dr. Slick Pa and talk about COVID PLANNING FOR possible COVID INFECTIONS Be certain that you have been immunized, full immunization for COVID = 3 total COVID shots Testing and evaluation for COVID if you get a cold = runny nose plus sore throat could be COVID -day 0 = Onset of symptoms = sore throat, runny nose, cough -day 1. = perform a Nasal COVID test on the morning of day 1 and if POSITIVE call the office for medication- [ available ] -if negative test again in 48 hours= on day 4 -day 2. And 3 No testing is done on day 2 or 3 -day 4 = perform a Nasal COVID test on morning of day 4 and if POSITIVE call the office for medication- [ available ] , if negative no further testing as needed. there are medication treatments for COVID Paxlovid is the highly effective antiviral used to treat COVID most patients can use this medicine. If you have chronic kidney disease there are limited options for treatment. We would plan remdesivir infusion daily for 3 days or less effective MOLNUPIRAVIR 800 MG BID X 5D pills should you become ill with COVID-19. This will require transportation to [facility] daily for 3 days to complete your course ofcare PLANNING FOR possible INFLUENZA INFECTIONS Take your yearly flu shot in March, [ We take the flu shot to prevent dying from Influenza = the flu. ] Influenza causes fever and muscle aches. If you have these symptoms you will need to go to the Office or a quick care clinic for testing Antiviral therapy = Tamiflu= is available but needs to be started within the 1st 24-72 hours of symptoms. Please be evaluated immediately if you have these symptoms. TELEMEDICINE DOCUMENTATION This was a telemedicine visit with Tess martell which took place via real-time video connection. During the visit, I was located in the office and the patient was located at home in the [facility]. The patient visit started at 5:31 p.m. and e 6:51 p.m. nded at 551 p.m.. I have explained the option of participating in a telemedicine visit to the patient. After being given an opportunity to ask questions about and discuss this type of visit, the patient verbally consented to proceeding with the telemedicine visit. The patient understands that this service replaces an office visit and they may be billed and/or responsible for any applicable copayments. A guest was included in this video visit. I discussed the benefit of including her daughter, a(n) daughter assisted with the camera, in the video visit. The patient was given the opportunity to ask questions and verbally consented to allowing them to participate in the video visit. HISTORY OF PRESENT ILLNESS 1. Infected abrasion of right lower extremity, initial encounter Silver dollar size lesion right pretibial area open wound appears as though a blister has unroofed.There is surrounding erythema in his area. As described in the physical exam. We will be applying topical transparent dressing changing as the dressing peels off until the wound is healed. Begin renal dose of Keflex antibiotics for the local cellulitis cephalexin (KEFLEX) 500 mg capsule; Take 1 capsule (500 mg total) by mouth 2 (two) times a day for 7 days Dispense: 14 capsule; Refill: 0 2. Acute on chronic heart failure with preserved ejection fraction (CMS/HCC) (HCC) No pedal edema, tolerating medications well no shortness a breath today recent hospitalization and discharge just saw Dr. Arauz today. I recommend she continue current therapy 3. CKD stage 3b, GFR 30-44 ml/min (HCC) B.i.d. dosing on the Keflex chosen due to the chronic kidney disease 4. Immunization counseling Vaccine counseling - Influenza and COVID planning: Immunization reviewed with updated recommendations outlined on the AVS along with COVID and influenza planning guidelines SOCIAL HISTORY Social History Tobacco Use ??? Smoking status: Former Current packs/day: 0.00 Average packs/day: 2.0 packs/day for 30.0 years (60.0 ttl pk-yrs) Types: Cigarettes Start date: 1951 Quit date: 1981 Years since quittin.9 ??? Smokeless tobacco: Never Substance and Sexual Activity ??? Drug use: Never ??? Sexual activity: Defer Alcohol Use: Not At Risk (04/10/2024) AUDIT-C ??? Frequency of Alcohol Consumption: Never ??? Average Number of Drinks: Patient does not drink ??? Frequency of Binge Drinking: Never REVIEW OF SYSTEMS Review of Systems Constitutional: Negative for activity change, appetite change, fatigue and fever. Gastrointestinal: Negative for abdominal pain, constipation and diarrhea. Genitourinary: Negative for difficulty urinating and menstrual problem. Musculoskeletal: Negative for arthralgias and myalgias. Skin: Positive for color change and wound. Negative for rash. Neurological: Negative for headaches. Psychiatric/Behavioral: Negative for decreased concentration, dysphoric mood and sleep disturbance.The patient is not nervous/anxious. MEDICATIONS CHANGED / CLEANED UP THIS VISIT There are no discontinued medications. MEDICATION LIST AT CONCLUSION OF THIS VISIT Current Outpatient Medications Ordered in [facility] Medication Sig Dispense Refill ??? acetaminophen (TYLENOL) 500 mg tablet Take 2 tablets (1,000 mg total) by mouth 2 (two) times a day as needed for pain ??? albuterol HFA (Proventil HFA) 90 mcg/actuation inhaler Inhale 2 puffs every 6 (six) hours as needed for wheezing or shortness of breath 6.7 g 3 ??? allopurinoL (ZYLOPRIM) 100 mg tablet Take 2 tablets (200 mg total) by mouth daily 60 tablet 2 ??? apixaban (ELIQUIS) 2.5 mg tablet Take 1 tablet (2.5 mg total) by mouth 2 (two) times a day 60 tablet 0 ??? ascorbic acid, vitamin C, 250 mg tablet,chewable Take 250 mg by mouth 3 (three) times a week Take with the iron 325 mg to ensure absorption Monday 90 tablet 1 ??? atorvastatin (LIPITOR) 20 mg tablet Take 1 tablet (20 mg total) by mouth daily 30 tablet 11 ??? carbamide peroxide (DEBROX) 6.5 % otic solution Administer 5 drops into each ear as needed for ear pain (monday right ear, monday left ear) 30 mL 1 ??? cephalexin (KEFLEX) 500 mg capsule Take 1 capsule (500 mg total) by mouth 2 (two) times a day for 7 days 14 capsule 0 ??? cetirizine (ZyrTEC) 10 mg tablet Take 1 tablet (10 mg total) by mouth nightly 90 tablet 3 ??? cholecalciferol (VITAMIN D-3) 2000 unit tablet Take 1 tablet (2,000 Units total) by mouth daily ??? empagliflozin (JARDIANCE) 10 mg tablet Take 1 tablet (10 mg total) by mouth daily 30 tablet 11 ??? Ferrocite 324 mg (106 mg iron) tablet Take 324 mg by mouth 3 (three) times a day ??? fluticasone propion-salmeteroL (ADVAIR DISKUS) 100-50 mcg/dose diskus inhaler Inhale 1 puff 2 (two) times a day Rinse mouth with water after use. Do not swallow. ??? furosemide (LASIX) 80 mg tablet Take 1 tablet (80 mg total) by mouth 2 (two) times a day ??? gabapentin (NEURONTIN) 100 mg capsule Take 1 capsule (100 mg total) by mouth 3 (three) times a day 90 capsule 5 ??? metOLazone (ZAROXOLYN) 5 mg tablet Take 1 tablet (5 mg total) by mouth 2 (two) times a week 15 tablet 3 ??? pantoprazole DR (PROTONIX) 40 mg EC tablet Take 1 tablet (40 mg total) by mouth daily 90 tablet2 ??? polyethylene glycol (MIRALAX) 17 gram packet Take 1 packet (17 g total) by mouth daily as needed for constipation ??? pramipexole (MIRAPEX) 0.75 mg tablet Take 1 tablet (0.75 mg total) by mouth 2 (two) times a day60 tablet 3 ??? propranoloL (INDERAL) 20 mg tablet Take 1 tablet (20 mg total) by mouth 2 (two) times a day with breakfast and lunch ??? spironolactone (ALDACTONE) 25 mg tablet Take 1 tablet (25 mg total) by mouth daily 30 tablet 11 ??? vericiguat (Verquvo) 2.5 mg tablet Take 1 tablet (2.5 mg total) by mouth daily 14 tablet 0 No current Epic-ordered facility-administered medications on file. ALLERGIES is allergic to celecoxib, scopolamine, sulfa (sulfonamide antibiotics), amlodipine, lisinopril, trazodone, duloxetine hcl, cipro [ciprofloxacin hcl], cymbalta [duloxetine], and sinemet [carbidopa-levodopa]. ELECTRONICALLY AVAILABLE PHYSICAL EXAMINATION FINDINGS VITAL SIGNS LMP (LMP Unknown) There is no height or weight on file to calculate BMI. Wt Readings from Last 3 Encounters: 04/29/24 80.3 kg (177 lb) 04/16/24 80.3 kg (177 lb) 04/10/24 82.3 kg (181 lb 8 oz) Temp Readings from Last 3 Encounters: 04/11/24 36.4 ??C (97.6 ??F) (Temporal) 03/16/24 36.6 ??C (97.9 ??F) 02/08/24 36.3 ??C (97.3 ??F) (Temporal) BP Readings from Last 3 Encounters: 04/29/24 113/76 04/16/24 104/70 04/11/24 109/79 Pulse Readings from Last 3 Encounters: 04/29/24 80 04/16/24 90 04/11/24 70 EXTREMITIES EXAM Patient was able to demonstrate right lower extremity with the assistance of her daughter in the room. She has a 1 inch slightly rounded lesion in the soft tissues of the right lower extremity mid way up from foot to knee with surrounding erythema extending down from the lesion about 2 in. The areas a bit warm to touch to her hand and her daughter's hand. My diagnosis is an unroofed blister type lesion with surrounding cellulitis. Follow-up examination was completed today and specifics of the testing and counseling are recorded on the AVS. Tess Benedict's personal health goals were negotiated and agreed upon today. Assessment and plan for new and ongoing medical problems were reviewed and agreed upon. Risk, benefit and side effects of medications appropriate for care were reviewed and sent eRx to the patient's requested pharmacies. All current lab work was reviewed and discussed. Appropriate labs and referrals planned for the follow-up visit were reviewed, discussed and completed. The discussion is summarized in this Assessment and Plan shared with her in the After Visit Summary. Pepper Morgan M.D. THE FOLLOWING CLERICAL INFORMATION DOES NOT NEED TO BE SENT IN A PRINTED DOCUMENT BLOOD WORK REVIEWED WITH Tess Benedict TODAY Admission on 04/10/2024, Discharged on 04/11/2024 Component Date Value Ref Range Status ??? WBC 04/10/2024 9.7 3.8 - 9.9 K/cumm Final ??? Hgb 04/10/2024 12.2 11.9 - 15.5 g/dL Final ??? Hct 04/10/2024 38.6 35.6 - 45.5 % Final ??? Plt 04/10/2024 334 150 - 400 K/cumm Final ??? MPV 04/10/2024 9.0 (L) 9.1 - 12.3 fL Final ??? RBC 04/10/2024 4.40 3.90 - 5.20 M/cumm Final ??? MCV 04/10/2024 87.7 81.3 - 96.4 fL Final ??? MCH 04/10/2024 27.7 27.1 - 33.3 pg Final ??? MCHC 04/10/2024 31.6 (L) 32.3 - 35.7 g/dL Final ??? RDW CV 04/10/2024 15.8 (H) 11.1 - 14.9 % Final ??? RDW SD 04/10/2024 49.8 (H) 35.7 - 48.1 fL Final ??? NRBC abs 04/10/2024 0.00 0.00 - 0.01 K/cumm Final ??? Sodium 04/10/2024 134 (L) 135 - 145 mmol/L Final ??? Potassium, pl 04/10/2024 4.3 3.3 - 4.9 mmol/L Final ??? Chloride 04/10/2024 92 (L) 97 - 110 mmol/L Final ??? CO2 04/10/2024 33 (H) 22 - 32 mmol/L Final ??? Anion gap 04/10/2024 10 2 - 15 mmol/L Final ??? BUN 04/10/2024 74 (H) 6 - 25 mg/dL Final ??? Creatinine 04/10/2024 1.75 (H) 0.60 - 1.10 mg/dL Final ??? Glucose 04/10/2024 97 70 - 199 mg/dL Final ??? Calcium 04/10/2024 9.1 8.5 - 10.3 mg/dL Final ??? Bilirubin, total 04/10/2024 0.2 0.1 - 1.2 mg/dL Final ??? Protein, pl 04/10/2024 7.1 6.5 - 8.5 g/dL Final ??? Albumin 04/10/2024 3.6 3.5 - 5.0 g/dL Final ??? Alk phos 04/10/2024 109 40 - 130 Units/L Final ??? ALT 04/10/2024 9 7 - 45 Units/L Final ??? AST 04/10/2024 14 10 - 45 Units/L Final ? ? NT-proBNP 04/10/2024 5,963 (H) <=450 pg/mL Final ? ? Trop T hs 04/10/2024 26 (H) <=14 ng/L Final ??? Neutrophil abs 04/10/2024 8.0 (H) 1.5 - 6.5 K/cumm Final ??? Imm gran abs 04/10/2024 0.1 0.0 - 0.1 K/cumm Final ??? Lymphocyte abs 04/10/2024 0.7 (L) 0.8 - 3.3 K/cumm Final ??? Monocyte abs 04/10/2024 0.6 0.2 - 0.8 K/cumm Final ??? Eosinophil abs 04/10/2024 0.3 0.0 - 0.5 K/cumm Final ??? Basophil abs 04/10/2024 0.1 0.0 - 0.1 K/cumm Final ??? Neutrophil pct 04/10/2024 82.3 % Final ??? Imm gran pct 04/10/2024 0.9 % Final ??? Lymphocyte pct 04/10/2024 7.0 % Final ??? Monocyte pct 04/10/2024 6.2 % Final ??? Eosinophil pct 04/10/2024 3.0 % Final ??? Basophil pct 04/10/2024 0.6 % Final ? ? Trop T hs 04/10/2024 23 (H) <=14 ng/L Final ??? Trop T hs delta 04/10/2024 -3 ng/L Final ??? Trop T hs interp 04/10/2024 Insignificant Final ? ? Trop T hs 04/10/2024 23 (H) <=14 ng/L Final ??? Trop T hs delta 04/10/2024 -3 ng/L Final ??? Trop T hs interp 04/10/2024 Insignificant Final ? ? Trop T hs 04/10/2024 23 (H) <=14 ng/L Final ??? Trop T hs delta 04/10/2024 -3 ng/L Final ??? Trop T hs interp 04/10/2024 Insignificant Final ? ? eGFR 04/10/2024 28 (L) >=60 mL/min/1.73 m2 Final ??? WBC 04/11/2024 9.1 3.8 - 9.9 K/cumm Final ??? Hgb 04/11/2024 11.2 (L) 11.9 - 15.5 g/dL Final ??? Hct 04/11/2024 34.6 (L) 35.6 - 45.5 % Final ??? Plt 04/11/2024 298 150 - 400 K/cumm Final ??? MPV 04/11/2024 9.4 9.1 - 12.3 fL Final ??? RBC 04/11/2024 4.02 3.90 - 5.20 M/cumm Final ??? MCV 04/11/2024 86.1 81.3 - 96.4 fL Final ??? MCH 04/11/2024 27.9 27.1 - 33.3 pg Final ??? MCHC 04/11/2024 32.4 32.3 - 35.7 g/dL Final ??? RDW CV 04/11/2024 15.9 (H) 11.1 - 14.9 % Final ??? RDW SD 04/11/2024 49.6 (H) 35.7 - 48.1 fL Final ??? NRBC abs 04/11/2024 0.00 0.00 - 0.01 K/cumm Final ??? Sodium 04/11/2024 130 (L) 135 - 145 mmol/L Final ??? Potassium, pl 04/11/2024 3.6 3.3 - 4.9 mmol/L Final ??? Chloride 04/11/2024 92 (L) 97 - 110 mmol/L Final ??? CO2 04/11/2024 26 22 - 32 mmol/L Final ??? Anion gap 04/11/2024 13 2 - 15 mmol/L Final ??? BUN 04/11/2024 68 (H) 6 - 25 mg/dL Final ??? Creatinine 04/11/2024 1.39 (H) 0.60 - 1.10 mg/dL Final ??? Glucose 04/11/2024 79 70 - 199 mg/dL Final ??? Calcium 04/11/2024 8.7 8.5 - 10.3 mg/dL Final ??? Bilirubin, total 04/11/2024 0.3 0.1 - 1.2 mg/dL Final ??? Protein, pl 04/11/2024 6.1 (L) 6.5 - 8.5 g/dL Final ??? Albumin 04/11/2024 2.8 (L) 3.5 - 5.0 g/dL Final ??? Alk phos 04/11/2024 98 40 - 130 Units/L Final ??? ALT 04/11/2024 7 7 - 45 Units/L Final ??? AST 04/11/2024 12 10 - 45 Units/L Final ??? Magnesium 04/11/2024 2.0 1.4 - 2.5 mg/dL Final ??? Urea nitrogen, ur 04/11/2024 411 mg/dL Final ??? Creatinine Ur 04/11/2024 25.6 mg/dL Final ??? Neutrophil abs 04/11/2024 7.3 (H) 1.5 - 6.5 K/cumm Final ??? Imm gran abs 04/11/2024 0.1 0.0 - 0.1 K/cumm Final ??? Lymphocyte abs 04/11/2024 0.8 0.8 - 3.3 K/cumm Final ??? Monocyte abs 04/11/2024 0.6 0.2 - 0.8 K/cumm Final ??? Eosinophil abs 04/11/2024 0.3 0.0 - 0.5 K/cumm Final ??? Basophil abs 04/11/2024 0.0 0.0 - 0.1 K/cumm Final ??? Neutrophil pct 04/11/2024 80.1 % Final ??? Imm gran pct 04/11/2024 1.2 % Final ??? Lymphocyte pct 04/11/2024 8.6 % Final ??? Monocyte pct 04/11/2024 6.8 % Final ??? Eosinophil pct 04/11/2024 2.9 % Final ??? Basophil pct 04/11/2024 0.4 % Final ? ? eGFR 04/11/2024 37 (L) >=60 mL/min/1.73 m2 Final ??? Cholesterol 04/11/2024 153 30 - 199 mg/dL Final ? ? Triglycerides 04/11/2024 87 <=149 mg/dL Final ? ? HDL 04/11/2024 39 (L) >=40 mg/dL Final ? ? LDL, calculated 04/11/2024 97 <=129 mg/dL Final ??? Non-HDL Cholesterol 04/11/2024 114 mg/dL Final ??? Chol/HDL ratio 04/11/2024 4 Final Lab on 04/10/2024 Component Date Value Ref Range Status ? ? NT-proBNP 04/10/2024 6,298 (H) <=450 pg/mL Final ??? Sodium 04/10/2024 133 (L) 135 - 145 mmol/L Final ??? Potassium, pl 04/10/2024 3.6 3.3 - 4.9 mmol/L Final ??? Chloride 04/10/2024 89 (L) 97 - 110 mmol/L Final ??? CO2 04/10/2024 33 (H) 22 - 32 mmol/L Final ??? Anion gap 04/10/2024 12 2 - 15 mmol/L Final ??? BUN 04/10/2024 76 (H) 6 - 25 mg/dL Final ??? Creatinine 04/10/2024 1.82 (H) 0.60 - 1.10 mg/dL Final ??? Glucose 04/10/2024 86 70 - 199 mg/dL Final ??? Calcium 04/10/2024 9.6 8.5 - 10.3 mg/dL Final ? ? eGFR 04/10/2024 27 (L) >=60 mL/min/1.73 m2 Final Lab on 04/01/2024 Component Date Value Ref Range Status ? ? NT-proBNP 04/01/2024 3,035 (H) <=450 pg/mL Final ??? Sodium 04/01/2024 128 (L) 135 - 145 mmol/L Final ??? Potassium, pl 04/01/2024 3.2 (L) 3.3 - 4.9 mmol/L Final ??? Chloride 04/01/2024 81 (L) 97 - 110 mmol/L Final ??? CO2 04/01/2024 34 (H) 22 - 32 mmol/L Final ??? Anion gap 04/01/2024 13 2 - 15 mmol/L Final ??? BUN 04/01/2024 78 (H) 6 - 25 mg/dL Final ??? Creatinine 04/01/2024 1.85 (H) 0.60 - 1.10 mg/dL Final ??? Glucose 04/01/2024 96 70 - 199 mg/dL Final ??? Calcium 04/01/2024 9.8 8.5 - 10.3 mg/dL Final ? ? eGFR 04/01/2024 26 (L) >=60 mL/min/1.73 m2 Final Admission on 03/15/2024, Discharged on 03/16/2024 Component Date Value Ref Range Status ? ? Trop T hs 03/15/2024 27 (H) <=14 ng/L Final ??? Sodium 03/15/2024 132 (L) 135 - 145 mmol/L Final ??? Potassium, pl 03/15/2024 6.5 (Critical) 3.3 - 4.9 mmol/L Final ??? Chloride 03/15/2024 104 97 - 110 mmol/L Final ??? CO2 03/15/2024 22 22 - 32 mmol/L Final ??? Anion gap 03/15/2024 6 2 - 15 mmol/L Final ??? BUN 03/15/2024 22 6 - 25 mg/dL Final ??? Creatinine 03/15/2024 1.09 0.60 - 1.10 mg/dL Final ??? Glucose 03/15/2024 97 70 - 199 mg/dL Final ??? Calcium 03/15/2024 9.3 8.5 - 10.3 mg/dL Final ??? Bilirubin, total 03/15/2024 0.3 0.1 - 1.2 mg/dL Final ??? Protein, pl 03/15/2024 6.7 6.5 - 8.5 g/dL Final ??? Albumin 03/15/2024 3.5 3.5 - 5.0 g/dL Final ??? Alk phos 03/15/2024 112 40 - 130 Units/L Final ??? ALT 03/15/2024 25 7 - 45 Units/L Final ??? AST 03/15/2024 25 10 - 45 Units/L Final ??? WBC 03/15/2024 9.6 3.8 - 9.9 K/cumm Final ??? Hgb 03/15/2024 11.8 (L) 11.9 - 15.5 g/dL Final ??? Hct 03/15/2024 40.2 35.6 - 45.5 % Final ??? Plt 03/15/2024 370 150 - 400 K/cumm Final ??? MPV 03/15/2024 8.6 (L) 9.1 - 12.3 fL Final ??? RBC 03/15/2024 4.41 3.90 - 5.20 M/cumm Final ??? MCV 03/15/2024 91.2 81.3 - 96.4 fL Final ??? MCH 03/15/2024 26.8 (L) 27.1 - 33.3 pg Final ??? MCHC 03/15/2024 29.4 (L) 32.3 - 35.7 g/dL Final ??? RDW CV 03/15/2024 16.5 (H) 11.1 - 14.9 % Final ??? RDW SD 03/15/2024 55.4 (H) 35.7 - 48.1 fL Final ??? NRBC abs 03/15/2024 0.00 0.00 - 0.01 K/cumm Final ? ? NT-proBNP 03/15/2024 5,198 (H) <=450 pg/mL Final ? ? D-Dimer 03/15/2024 647 (H) <=499 ng/mL FEU Final ??? Neutrophil abs 03/15/2024 8.0 (H) 1.5 - 6.5 K/cumm Final ??? Imm gran abs 03/15/2024 0.2 (H) 0.0 - 0.1 K/cumm Final ??? Lymphocyte abs 03/15/2024 0.7 (L) 0.8 - 3.3 K/cumm Final ??? Monocyte abs 03/15/2024 0.4 0.2 - 0.8 K/cumm Final ??? Eosinophil abs 03/15/2024 0.2 0.0 - 0.5 K/cumm Final ??? Basophil abs 03/15/2024 0.1 0.0 - 0.1 K/cumm Final ??? Neutrophil pct 03/15/2024 83.5 % Final ??? Imm gran pct 03/15/2024 2.2 % Final ??? Lymphocyte pct 03/15/2024 6.8 % Final ??? Monocyte pct 03/15/2024 4.5 % Final ??? Eosinophil pct 03/15/2024 2.4 % Final ??? Basophil pct 03/15/2024 0.6 % Final ? ? Trop T hs 03/15/2024 36 (H) <=14 ng/L Final ??? Trop T hs delta 03/15/2024 9 ng/L Final ??? Trop T hs interp 03/15/2024 Equivocal Final ? ? Trop T hs 03/15/2024 19 (H) <=14 ng/L Final ??? Trop T hs delta 03/15/2024 -8 ng/L Final ??? Trop T hs interp 03/15/2024 Equivocal Final ? ? Trop T hs 03/15/2024 20 (H) <=14 ng/L Final ??? Trop T hs delta 03/15/2024 See Comment ng/L Final ??? Trop T hs pct delta 03/15/2024 See Comment % Final ??? Trop T hs interp 03/15/2024 See Comment Final ? ? eGFR 03/15/2024 49 (L) >=60 mL/min/1.73 m2 Final ??? Potassium, pl 03/15/2024 5.9 (H) 3.3 - 4.9 mmol/L Final ??? Glucose, POC 03/15/2024 138 70 - 199 mg/dL Final ??? WBC 03/16/2024 8.5 3.8 - 9.9 K/cumm Final ??? Hgb 03/16/2024 11.3 (L) 11.9 - 15.5 g/dL Final ??? Hct 03/16/2024 37.9 35.6 - 45.5 % Final ??? Plt 03/16/2024 296 150 - 400 K/cumm Final ??? MPV 03/16/2024 8.5 (L) 9.1 - 12.3 fL Final ??? RBC 03/16/2024 4.18 3.90 - 5.20 M/cumm Final ??? MCV 03/16/2024 90.7 81.3 - 96.4 fL Final ??? MCH 03/16/2024 27.0 (L) 27.1 - 33.3 pg Final ??? MCHC 03/16/2024 29.8 (L) 32.3 - 35.7 g/dL Final ??? RDW CV 03/16/2024 16.5 (H) 11.1 - 14.9 % Final ??? RDW SD 03/16/2024 54.4 (H) 35.7 - 48.1 fL Final ??? NRBC abs 03/16/2024 0.00 0.00 - 0.01 K/cumm Final ??? Sodium 03/16/2024 133 (L) 135 - 145 mmol/L Final ??? Potassium, pl 03/16/2024 4.5 3.3 - 4.9 mmol/L Final ??? Chloride 03/16/2024 101 97 - 110 mmol/L Final ??? CO2 03/16/2024 23 22 - 32 mmol/L Final ??? Anion gap 03/16/2024 9 2 - 15 mmol/L Final ??? BUN 03/16/2024 28 (H) 6 - 25 mg/dL Final ??? Creatinine 03/16/2024 1.16 (H) 0.60 - 1.10 mg/dL Final ??? Glucose 03/16/2024 90 70 - 199 mg/dL Final ??? Calcium 03/16/2024 8.9 8.5 - 10.3 mg/dL Final ??? Potassium, pl 03/15/2024 5.1 (H) 3.3 - 4.9 mmol/L Final ??? Neutrophil abs 03/16/2024 6.5 1.5 - 6.5 K/cumm Final ??? Imm gran abs 03/16/2024 0.3 (H) 0.0 - 0.1 K/cumm Final ??? Lymphocyte abs 03/16/2024 0.8 0.8 - 3.3 K/cumm Final ??? Monocyte abs 03/16/2024 0.6 0.2 - 0.8 K/cumm Final ??? Eosinophil abs 03/16/2024 0.2 0.0 - 0.5 K/cumm Final ??? Basophil abs 03/16/2024 0.1 0.0 - 0.1 K/cumm Final ??? Neutrophil pct 03/16/2024 77.1 % Final ??? Imm gran pct 03/16/2024 3.2 % Final ??? Lymphocyte pct 03/16/2024 9.8 % Final ??? Monocyte pct 03/16/2024 6.6 % Final ??? Eosinophil pct 03/16/2024 2.5 % Final ??? Basophil pct 03/16/2024 0.8 % Final ? ? eGFR 03/16/2024 46 (L) >=60 mL/min/1.73 m2 Final Lab on 01/25/2024 Component Date Value Ref Range Status ? ? Albumin Ur 01/25/2024 <12.0 mg/L Final ??? Creatinine Ur 01/25/2024 11.1 mg/dL Final ??? Albumin Creatinine Ratio, Ur 01/25/2024 See Comment 1 - 29 Final ??? Magnesium 01/25/2024 2.0 1.4 - 2.5 mg/dL Final ??? Sodium 01/25/2024 132 (L) 135 - 145 mmol/L Final ??? Potassium, pl 01/25/2024 4.1 3.3 - 4.9 mmol/L Final ??? Chloride 01/25/2024 90 (L) 97 - 110 mmol/L Final ??? CO2 01/25/2024 28 22 - 32 mmol/L Final ??? Anion gap 01/25/2024 14 2 - 15 mmol/L Final ??? BUN 01/25/2024 58 (H) 6 - 25 mg/dL Final ??? Creatinine 01/25/2024 1.48 (H) 0.60 - 1.10 mg/dL Final ??? Glucose 01/25/2024 115 70 - 199 mg/dL Final ??? Calcium 01/25/2024 9.9 8.5 - 10.3 mg/dL Final ??? Phosphorus, pl 01/25/2024 3.8 2.3 - 4.5 mg/dL Final ??? Albumin 01/25/2024 3.8 3.5 - 5.0 g/dL Final ??? Hgb A1C 01/25/2024 5.8 (H) 4.0 - 5.6 % Final ??? Estimated Average Glucose 01/25/2024 120 mg/dL Final ??? Uric acid 01/25/2024 6.4 2.5 - 7.0 mg/dL Final ? ? eGFR 01/25/2024 34 (L) >=60 mL/min/1.73 m2 Final Lab on 01/04/2024 Component Date Value Ref Range Status ? ? NT-proBNP 01/04/2024 3,933 (H) <=450 pg/mL Final ??? Sodium 01/04/2024 135 135 - 145 mmol/L Final ??? Potassium, pl 01/04/2024 4.2 3.3 - 4.9 mmol/L Final ??? Chloride 01/04/2024 93 (L) 97 - 110 mmol/L Final ??? CO2 01/04/2024 32 22 - 32 mmol/L Final ??? Anion gap 01/04/2024 11 2 - 15 mmol/L Final ??? BUN 01/04/2024 55 (H) 6 - 25 mg/dL Final ??? Creatinine 01/04/2024 1.70 (H) 0.60 - 1.10 mg/dL Final ??? Glucose 01/04/2024 116 70 - 199 mg/dL Final ??? Calcium 01/04/2024 9.2 8.5 - 10.3 mg/dL Final ? ? eGFR 01/04/2024 29 (L) >=60 mL/min/1.73 m2 Final Lab on 12/29/2023 Component Date Value Ref Range Status ??? Sodium 12/29/2023 132 (L) 135 - 145 mmol/L Final ??? Potassium, pl 12/29/2023 3.4 3.3 - 4.9 mmol/L Final ??? Chloride 12/29/2023 88 (L) 97 - 110 mmol/L Final ??? CO2 12/29/2023 33 (H) 22 - 32 mmol/L Final ??? Anion gap 12/29/2023 11 2 - 15 mmol/L Final ??? BUN 12/29/2023 62 (H) 6 - 25 mg/dL Final ??? Creatinine 12/29/2023 1.57 (H) 0.60 - 1.10 mg/dL Final ??? Glucose 12/29/2023 101 70 - 199 mg/dL Final ??? Calcium 12/29/2023 9.9 8.5 - 10.3 mg/dL Final ??? Phosphorus, pl 12/29/2023 4.7 (H) 2.3 - 4.5 mg/dL Final ??? Albumin 12/29/2023 3.9 3.5 - 5.0 g/dL Final ??? Uric acid 12/29/2023 8.1 (H) 2.5 - 7.0 mg/dL Final ??? Iron 12/29/2023 55 35 - 145 mcg/dL Final ??? TIBC 12/29/2023 404 (H) 250 - 400 mcg/dL Final ??? Transferrin saturation 12/29/2023 14 (L) 20 - 50 % Final ??? WBC 12/29/2023 10.7 (H) 3.8 - 9.9 K/cumm Final ??? Hgb 12/29/2023 15.0 11.9 - 15.5 g/dL Final ??? Hct 12/29/2023 46.7 (H) 35.6 - 45.5 % Final ??? Plt 12/29/2023 370 150 - 400 K/cumm Final ??? MPV 12/29/2023 9.4 9.1 - 12.3 fL Final ??? RBC 12/29/2023 5.58 (H) 3.90 - 5.20 M/cumm Final ??? MCV 12/29/2023 83.7 81.3 - 96.4 fL Final ??? MCH 12/29/2023 26.9 (L) 27.1 - 33.3 pg Final ??? MCHC 12/29/2023 32.1 (L) 32.3 - 35.7 g/dL Final ??? RDW CV 12/29/2023 15.8 (H) 11.1 - 14.9 % Final ??? RDW SD 12/29/2023 47.8 35.7 - 48.1 fL Final ??? NRBC abs 12/29/2023 0.00 0.00 - 0.01 K/cumm Final ??? Neutrophil abs 12/29/2023 8.6 (H) 1.5 - 6.5 K/cumm Final ??? Imm gran abs 12/29/2023 0.1 0.0 - 0.1 K/cumm Final ??? Lymphocyte abs 12/29/2023 0.9 0.8 - 3.3 K/cumm Final ??? Monocyte abs 12/29/2023 0.8 0.2 - 0.8 K/cumm Final ??? Eosinophil abs 12/29/2023 0.3 0.0 - 0.5 K/cumm Final ??? Basophil abs 12/29/2023 0.1 0.0 - 0.1 K/cumm Final ??? Neutrophil pct 12/29/2023 80.6 % Final ??? Imm gran pct 12/29/2023 1.0 % Final ??? Lymphocyte pct 12/29/2023 8.4 % Final ??? Monocyte pct 12/29/2023 7.1 % Final ??? Eosinophil pct 12/29/2023 2.3 % Final ??? Basophil pct 12/29/2023 0.6 % Final ? ? eGFR 12/29/2023 32 (L) >=60 mL/min/1.73 m2 Final Lab on 12/29/2023 Component Date Value Ref Range Status ? ? NT-proBNP 12/29/2023 1,839 (H) <=450 pg/mL Final ??? Sodium 12/29/2023 132 (L) 135 - 145 mmol/L Final ??? Potassium, pl 12/29/2023 3.4 3.3 - 4.9 mmol/L Final ??? Chloride 12/29/2023 88 (L) 97 - 110 mmol/L Final ??? CO2 12/29/2023 32 22 - 32 mmol/L Final ??? Anion gap 12/29/2023 12 2 - 15 mmol/L Final ??? BUN 12/29/2023 60 (H) 6 - 25 mg/dL Final ??? Creatinine 12/29/2023 1.60 (H) 0.60 - 1.10 mg/dL Final ??? Glucose 12/29/2023 101 70 - 199 mg/dL Final ??? Calcium 12/29/2023 9.7 8.5 - 10.3 mg/dL Final ? ? eGFR 12/29/2023 31 (L) >=60 mL/min/1.73 m2 Final Lab on 11/20/2023 Component Date Value Ref Range Status ??? Uric acid 11/20/2023 8.6 (H) 2.5 - 7.0 mg/dL Final ??? Sodium 11/20/2023 134 (L) 135 - 145 mmol/L Final ??? Potassium, pl 11/20/2023 4.2 3.3 - 4.9 mmol/L Final ??? Chloride 11/20/2023 95 (L) 97 - 110 mmol/L Final ??? CO2 11/20/2023 25 22 - 32 mmol/L Final ??? Anion gap 11/20/2023 14 2 - 15 mmol/L Final ??? BUN 11/20/2023 47 (H) 6 - 25 mg/dL Final ??? Creatinine 11/20/2023 1.60 (H) 0.60 - 1.10 mg/dL Final ??? Glucose 11/20/2023 100 70 - 199 mg/dL Final ??? Calcium 11/20/2023 10.0 8.5 - 10.3 mg/dL Final ? ? eGFR 11/20/2023 31 (L) >=60 mL/min/1.73 m2 Final Lab on 10/26/2023 Component Date Value Ref Range Status ? ? NT-proBNP 10/26/2023 2,726 (H) <=450 pg/mL Final ??? Magnesium 10/26/2023 1.8 1.4 - 2.5 mg/dL Final ??? Sodium 10/26/2023 138 135 - 145 mmol/L Final ??? Potassium, pl 10/26/2023 4.5 3.3 - 4.9 mmol/L Final ??? Chloride 10/26/2023 97 97 - 110 mmol/L Final ??? CO2 10/26/2023 31 22 - 32 mmol/L Final ??? Anion gap 10/26/2023 10 2 - 15 mmol/L Final ??? BUN 10/26/2023 53 (H) 6 - 25 mg/dL Final ??? Creatinine 10/26/2023 1.54 (H) 0.60 - 1.10 mg/dL Final ??? Glucose 10/26/2023 85 70 - 199 mg/dL Final ??? Calcium 10/26/2023 10.7 (H) 8.5 - 10.3 mg/dL Final ??? Bilirubin, total 10/26/2023 0.2 0.1 - 1.2 mg/dL Final ??? Protein, pl 10/26/2023 7.3 6.5 - 8.5 g/dL Final ??? Albumin 10/26/2023 3.7 3.5 - 5.0 g/dL Final ??? Alk phos 10/26/2023 120 40 - 130 Units/L Final ??? ALT 10/26/2023 18 7 - 45 Units/L Final ??? AST 10/26/2023 28 10 - 45 Units/L Final ??? Uric acid 10/26/2023 11.5 (H) 2.5 - 7.0 mg/dL Final ??? WBC 10/26/2023 10.0 (H) 3.8 - 9.9 K/cumm Final ??? Hgb 10/26/2023 14.6 11.9 - 15.5 g/dL Final ??? Hct 10/26/2023 49.3 (H) 35.6 - 45.5 % Final ??? Plt 10/26/2023 400 150 - 400 K/cumm Final ??? MPV 10/26/2023 9.5 9.1 - 12.3 fL Final ??? RBC 10/26/2023 5.64 (H) 3.90 - 5.20 M/cumm Final ??? MCV 10/26/2023 87.4 81.3 - 96.4 fL Final ??? MCH 10/26/2023 25.9 (L) 27.1 - 33.3 pg Final ??? MCHC 10/26/2023 29.6 (L) 32.3 - 35.7 g/dL Final ??? RDW CV 10/26/2023 17.0 (H) 11.1 - 14.9 % Final ??? RDW SD 10/26/2023 52.6 (H) 35.7 - 48.1 fL Final ??? NRBC abs 10/26/2023 0.00 0.00 - 0.01 K/cumm Final ??? Neutrophil abs 10/26/2023 7.8 (H) 1.5 - 6.5 K/cumm Final ??? Imm gran abs 10/26/2023 0.1 0.0 - 0.1 K/cumm Final ??? Lymphocyte abs 10/26/2023 1.0 0.8 - 3.3 K/cumm Final ??? Monocyte abs 10/26/2023 0.9 (H) 0.2 - 0.8 K/cumm Final ??? Eosinophil abs 10/26/2023 0.2 0.0 - 0.5 K/cumm Final ??? Basophil abs 10/26/2023 0.1 0.0 - 0.1 K/cumm Final ??? Neutrophil pct 10/26/2023 77.8 % Final ??? Imm gran pct 10/26/2023 1.0 % Final ??? Lymphocyte pct 10/26/2023 10.3 % Final ??? Monocyte pct 10/26/2023 8.5 % Final ??? Eosinophil pct 10/26/2023 1.7 % Final ??? Basophil pct 10/26/2023 0.7 % Final ? ? eGFR 10/26/2023 33 (L) >=60 mL/min/1.73 m2 Final There may be more visits with results that are not included. Patient Active Problem List Diagnosis ??? Essential tremor ??? Chronic GERD ??? 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 ??? Restless legs syndrome ??? Bariatric surgery status ??? Knee joint replacement status, bilateral ??? History of malignant melanoma ??? Iron deficiency anemia, unspecified ??? Shortness of breath ??? Atrial fibrillation (CMS/HCC) ([facility]) ??? Spinal stenosis of lumbar region with neurogenic claudication ??? Peripheral arterial disease ([facility]) ??? 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 Postural kyphosis of cervicothoracic region ??? Acute on chronic heart failure with preserved ejection fraction (CMS/HCC) ([facility]) ??? Gait disturbance ??? Class 1 obesity with serious comorbidity and body mass index (BMI) of 34.0 to 34.9 in adult ??? Mild persistent asthma ??? [place] of macula of both eyes ??? Macular hole ??? Atherosclerosis of [place] arteries of extremities with intermittent claudication, bilateral legs ([facility]) ??? Skin tear of right forearm without complication ??? Gouty arthritis of foot ??? Esophageal dysphagia ??? CKD stage 3b, GFR 30-44 ml/min ([facility]) ??? Prediabetes ??? Bleeding hemorrhoids ??? Acute lower GI bleeding ??? Chronic blood loss anemia ??? Acute on chronic diastolic CHF (congestive heart failure) (CMS/HCC) ([facility]) ??? DANNY (acute kidney injury) ([facility]) Pepper Morgan M.D. == MEDICATION AND LABORATORY LINKING OF ALL WERE COMPLETED TODAY FOR THE CODE REVIEW TEAM == ICD-10-CM 1. Infected abrasion of right lower extremity, initial encounter S80.811A cephalexin (KEFLEX) 500 mg capsule L08.9 2. Acute on chronic heart failure with preserved ejection fraction ([facility]) ([facility]) I50.33 3. CKD stage 3b, GFR 30-44 ml/min ([facility]) N18.32 4. Immunization counseling Z71.85 Patient Instructions Tess Benedict to review this After Visit Summary ( AVS ) for accuracy & contact us if you find need for changes. == YOUR NEXT FOLLOW-UP Return in about 4 months (around 08/26/2024) for Next scheduled follow up: Call sooner if not improve. ORDERS FOR AMS STAFF TO ARRANGE: 1. Remind her to get the following immunizations at pharmacy tomorrow when she picks up her antibiotics Prevnar 20 RSV vaccine NovaVax COVID booster MEDICATION CHANGES RECOMMENDED TODAY: Keflex 500 mg 2 times daily for 7 days for right leg infection Soap and water wash and pat dry. Do not apply any ointment Apply a [place] transparent dressing 2-1/2 x 2-1/2 inch to cover lesion each week. You may bathe with the use of the dressing. Call the office if you have trouble with this wound The MEDICATION LIST that your providers BELIEVE YOU ARE TAKING The Complete MEDICATION LIST at conclusion of visit 05/07/2024 Current Outpatient Medications: ??? acetaminophen (TYLENOL) 500 mg tablet ??? albuterol HFA (Proventil HFA) 90 mcg/actuation inhaler ??? allopurinoL (ZYLOPRIM) 100 mg tablet ??? apixaban (ELIQUIS) 2.5 mg tablet ??? ascorbic acid, vitamin C, 250 mg tablet,chewable ??? atorvastatin (LIPITOR) 20 mg tablet ??? carbamide peroxide (DEBROX) 6.5 % otic solution ??? cephalexin (KEFLEX) 500 mg capsule ??? cetirizine (ZyrTEC) 10 mg tablet ??? cholecalciferol (VITAMIN D-3) 2000 unit tablet ??? empagliflozin (JARDIANCE) 10 mg tablet ??? Ferrocite 324 mg (106 mg iron) tablet ??? fluticasone propion-salmeteroL (ADVAIR DISKUS) 100-50 mcg/dose diskus inhaler ??? furosemide (LASIX) 80 mg tablet ??? gabapentin (NEURONTIN) 100 mg capsule ??? metOLazone (ZAROXOLYN) 5 mg tablet ??? pantoprazole DR (PROTONIX) 40 mg EC tablet ??? polyethylene glycol (MIRALAX) 17 gram packet ??? pramipexole (MIRAPEX) 0.75 mg tablet ??? propranoloL (INDERAL) 20 mg tablet ??? spironolactone (ALDACTONE) 25 mg tablet ??? vericiguat (Verquvo) 2.5 mg tablet ALLERGIES Allergies Allergen Reactions ??? Celecoxib Anaphylaxis ??? Scopolamine Mental status changes Delirium postop after joint replacement due to this medicine ??? Sulfa (Sulfonamide Antibiotics) Anaphylaxis ??? Amlodipine Swelling ??? Lisinopril Swelling ??? Trazodone Swelling Tongue ??? Duloxetine Hcl Unknown ??? Cipro [Ciprofloxacin Hcl] Vomiting ??? Cymbalta [Duloxetine] Fatigue Sleepiness, tiredness possibly related to 20 mg morning dose of this medicine discontinued 11/30/2020 ??? Sinemet [Carbidopa-Levodopa] Other (See comments) Night hines HOME SAFETY: Motion activated hallway and bedroom lighting --AND-- removal of throw rugs from the home has been found in multiple studies to prevent falls and injuries. I recommend installing MOTION ACTIVATED LIGHTING for nighttime safety and REMOVAL OF ALL THROW RUGSFROM HOME = consider Stone bath mats made of diatomaceous Earth, these are non-slip and absorbent. PLEASE REVIEW this CARE TEAM and advise our medical staff of any need for INCLUSIONS OR DELETIONS from this team list This will assist in keeping your medical provider team informed of important changes in your health. Patient Care Team: Pepper Morgan MD as PCP - Hank Corcoran MD as Surgeon (Orthopedic Surgery) Jacky Murry MD (Ophthalmology) Puma Mckenzie MD as Surgeon (Orthopedic Surgery) Neha Jackson PT as Physical Therapist (Physical Therapy) Stalin Arauz MD as Consulting Physician (Cardiology) Tiffany Rojas PA (Gastroenterology) Klaus Deshpande MD as Consulting Physician (Neurology) Primary Pharmacy/DME suppliers: [id number] [address] [facility] [address] [id number] Please inform us if you have a change before follow-up visit For further INTERNET RESEARCH on your medical concerns: I recommend [email or web address] = the [employer] library of medicine online site. This is a consistently reliable site for your personal medical research. IMMUNIZATIONS general recommendations for immunizations at age 60 and over RSV vaccine --this is recommended ONCE for all persons 60 and over Shingrix //recommended in all persons over 50// Shingrix is a 2 shot series--the shots should be by at least 6 weeks and up to 6-month Immunizations that are due in early March HIGH DOSE FLU SHOT Updated BIVALENT COVID BOOSTER--ask for the NovaVax Your immunization record Immunization History Administered Date(s) Administered ??? COVID-19 mRNA (Istpika) 0.3 mL (30 mcg) vaccine (12 years and up) 03/24/2023 ??? Influenza, Quad, Adjuvantated, Intramuscular 03/10/2022 ??? Influenza, Quadrivalent, High Dose, Preservative Free, Intrr 03/31/2020, 04/13/2021, 03/24/2023 ??? Influenza, Quadrivalent, Split, Intramuscular 03/28/2016, 04/04/2017 ??? Influenza, Split 05/18/2012 ??? Influenza, Trivalent, Adjuvanted, Intramuscular 04/17/2019 ??? Influenza, Trivalent, High Dose, Split, Preservative Free, Intramuscular 03/23/2015, 03/12/2018, 04/17/2019 ??? Influenza, Trivalent, IM (MDV) 03/25/2014, 04/17/2015 ??? Influenza, Unspecified 03/13/2018, 03/19/2021, 03/10/2022, 03/24/2023, 03/19/2024 ??? Pfizer SARS-CoV-2 Monovalent Vaccination (12+ Yrs) DOSS-READY TO USE 01/11/2022 ??? Pfizer SARS-CoV-2 Monovalent Vaccination (12+ Yrs) PURPLE 08/15/2020, 09/06/2020, 03/14/2021 ??? Pfizer Sars-Cov-2 Bivalent Vaccination (12+ YRS) 04/01/2022 ??? Pneumococcal Conjugate PCV 13 02/18/2015 ??? Pneumococcal Polysaccharide PPV23 05/17/2002, 04/26/2016 ??? Tdap 05/18/2011, 08/23/2021 ??? ZOSTER Recombinant 12/02/2020, 02/23/2021 ----------------------------> To keep up with emerging viruses and COVID science evidence I recommend the podcast TWIV episodes posted every Monday are with Dr. Slick Pa and talk about COVID PLANNING FOR possible COVID INFECTIONS Be certain that you have been immunized, full immunization for COVID = 3 total COVID shots Testing and evaluation for COVID if you get a cold = runny nose plus sore throat could be COVID -day 0 = Onset of symptoms = sore throat, runny nose, cough -day 1. = perform a Nasal COVID test on the morning of day 1 and if POSITIVE call the office for medication- [ available ] -if negative test again in 48 hours= on day 4 -day 2. And 3 No testing is done on day 2 or 3 -day 4 = perform a Nasal COVID test on morning of day 4 and if POSITIVE call the office for medication- [ available 24] , if negative no further testing as needed. there are medication treatments for COVID Paxlovid is the highly effective antiviral used to treat COVID most patients can use this medicine. If you have chronic kidney disease there are limited options for treatment. We would plan remdesivir infusion daily for 3 days or less effective MOLNUPIRAVIR 800 MG BID X 5D pills should you become ill with COVID-19. This will require transportation to [facility] daily for 3 days to complete your course ofcare PLANNING FOR possible INFLUENZA INFECTIONS Take your yearly flu shot in March, [ We take the flu shot to prevent dying from Influenza = the flu. ] Influenza causes fever and muscle aches. If you have these symptoms you will need to go to the Office or a quick care clinic for testing Antiviral therapy = Tamiflu= is available but needs to be started within the 1st 24-72 hours of symptoms. Please be evaluated immediately if you have these symptoms. RECONCILIATOR documented in this encounter Plan of Treatment Not on file documented as of this encounter Goals Goal Patient Goal Type Associated Problems Recent Progress Patient-Stated? Author BH-Pain Behavioral Health Improving( 3:34 PM CDT) No Domitila Garay RN Note: Patient will establish a comfort-function goal and identify the pain level that will allow the patient to perform desired activities and achieve an acceptable quality of life. documented as of this encounter Visit Diagnoses Diagnosis Infected abrasion of right lower extremity, initial encounter- Primary Acute on chronic heart failure with preserved ejection fraction (CMS/HCC) ([facility]) CKD stage 3b, GFR 30-44 ml/min ([facility]) Immunization counseling documented in this encounter Care Teams Pot Puller Relationship Specialty Start Date End Date Pepper Morgan MD PCP - General 09/16/16 Hank Garibay MD [address] [facility] [address] [place] [address] Surgeon Orthopedic Surgery 03/27/17 Jacky Murry MD [address] [facility] [address] [place] [address] Ophthalmology 03/27/17 Puma Mckenzie MD [address] [facility] [address] [place] [address] Surgeon Orthopedic Surgery 07/11/19 Neha Jackson, PT Physical Therapist Physical Therapy 12/01/21 Stalin Arauz MD [address] [facility] [address] [place] [address] Consulting Physician Cardiology 12/08/22 Tiffany Rojas PA [address] [facility] [address] [place] [address] Gastroenterology 12/30/22 Klaus Deshpande MD [address] [facility] [address] [place] [address] Consulting Physician Neurology 06/13/23 documented as of this encounter
--- OUTSIDE RECORDS SUMMARY | 2024-06-18 18:47 | XMS_ITS | Encounter Summary ---
Author Organization [facility] Healthcare Address [address] [place] [address] Care Team Providers Care Garbage Pick Up Man Name Role Phone Pepper Morgan MD Primary Care Provider + [phone] Hank Garibay MD Unavailable [phone] Jacky Murry MD Unavailable [phone] Puma Mckenzie MD Unavailable [phone] Neha Jackson PT Unavailable Unavailable Stalin Arauz MD Unavailable [phone] Tiffany Rojas Unavailable [phone] Klaus Deshpande MD Unavailable [phone] Reason for Visit * Reason Comments Successful Phone Call 04/10/2024 - 04/11 (21 hours)[facility] Encounter Details Date Type Department Care Team (Late st Contact Info) Description 04/12/2024 MARIO IP Outreach [facility] Accountable Care Organization [address] [place] [address] [phone] Radha Pascual LPN [address] [place] [address] [place] [address] Social History Tobacco Use Types Packs/Day Years Used Date Smoking Tobacco: Former Cigarettes 2 30 1 605 - 1982 Smokeless Tobacco: Never Alcohol Use Standard Drinks/Week Comments Not Currently 0 (1 standard drink = 0.6 oz pur e alcohol) [facility] Utilities Answer Date Recorded In the [...] often do you attend chur ch or judaism services? Never 04/11/2024 Do you belong to any clubs o r organizations such as mandaen groups, unions, fraternal or athletic groups, or [...] place to sleep or slept in a fpc (including now)? No 07/24/2023 Housing Stability Vital [...] were you homeless or living in a fpc (including now)? 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 Patient status post-discharge: Q1 - Same Status Details: - Care wrestling coach spoke with patient on the phone who was recently discharged from the hospital yesterday. Patient states that she believes she accomplished nothing going to the hospital stating that she is still up on her weight. Patient reports that she believes it was a waste of our time. Patient does state that they advised her that she needs an appointment with a kidney specialistand will be contacting one for an appointment today. Patient states that she won't be home much today because she has a lot of things to get done. Care wrestling coach did advise her that she will need to follow up with primary care provider and patient states that she may not be home when they call if they do not call right away. Care wrestling coach verbally voiced understanding and advised her that their wrestling coach issending the message to the office. Patient does state that she has her discharge instructions from the hospital and no questions or concerns regarding any of the information within her discharge instructions. Patient states that she was going to cotton picker her medication from the pharmacy yesterday but reports that it was not ready yesterday, patient reports that she will be obtaining it later today. Patient does state that she has not fallen in the past six months and does have a Walker if neededbut was that ordered any home health care once returning home. Care wrestling coach will be sending a messageto the office to please contact patient and schedule patient a follow up with primary care providerinside a data parameters of seven days. Discharge Instructions Reviewed - Yes Details: - Medication Reconciliation Completed: - Yes Details: - Appointment status: - No appointment availability Appointment Date: Patient educated about same day sick appts at PCP office and s/s to report to physician. Pt verbalized understanding of information presented. No additional needs identified at this time. Provided mycontact information for future needs. Radha Pascual LPN, ACO Care Drawing Tender [facility] Accountable Care Organization / [facility] Medical Group Contact E-Mail - [email or web address] or [phone] documented in this encounter Plan of Treatment [...] on filedocumented in this encounter Care Teams Garbage Pick Up Man Relationship Specialty Start Date End Date Pepper Morgan MD PCP - General 09/16/16 Hank Garibay MD [address] [facility] [address] [place] [address] Surgeon Orthopedic Surgery 03/27/17 Jacky Murry MD [address] [facility] [address] [place] [facility] [address] [place] [address] Ophthalmology 03/27/17 Puma Mckenzie MD [address] [facility] [address] [place] [address] Surgeon Orthopedic Surgery 07/11/19 Neha Jackson, PT Physical Therapist Physical Therapy 12/01/21 Stalin Arauz MD [address] [facility] [address] [place] [address] Consulting Physician Cardiology 12/08/22 Tiffany Rojas PA [address] [facility] [address] [place] [address] Gastroenterology 12/30/22 Klaus Deshpande MD [address] [facility] [address] [place] [address] Consulting Physician Neurology 06/13/23 documented as of this encounter
--- OUTSIDE RECORDS SUMMARY | 2024-06-18 18:47 | XMS_ITS | Encounter Summary ---
Author Organization [facility] Address [address] [place] [address] Care Team Providers Care Stope Miner Name Role Phone Pepper Morgan MD Primary Care Provider + [phone] Hank Garibay MD Unavailable [phone] Jacky Murry MD Unavailable [phone] Puma Mckenzie MD Unavailable [phone] Neha Jackson PT Unavailable Unavailable Stalin Arauz MD Unavailable [phone] Tiffany Rojas Unavailable [phone] Klaus Deshpande MD Unavailable [phone] Reason for Visit * Reason Comments Atrial Fibrillation Encounter Details Date Type Department Care Team (Late st Contact Info) Description 04/16/2024 11:30 AM CDT Office Visit [facility] at [address] [place] [id number] Maude Harris, NOEL [address] [place] [address] [address] [place] [address] Chronic atrial fibrillation (HCC) (Primary Dx); Chronic heart failure with preserved ejection fraction (CMS/HCC) (HCC); Atherosclerosis of [place] arteries of extremities with rest pain, right leg (HCC); 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; Atherosclerosis of [place] arteries of extremities with intermittent claudication, bilateral legs (HCC); Paroxysmal atrial fibrillation (CMS/HCC) (HCC) Social History Tobacco Use Types Packs/Day Years Used Date Smoking Tobacco: Former Cigarettes 2 30 1 1981 Smokeless Tobacco: Never Tobacco Cessation:Counseling Given: Not Answered Alcohol Use Standard Drinks/Week Comments Not Currently 0 (1 standard drink = 0.6 oz pur e alcohol) [facility] Utilities Answer Date Recorded In the past 12 months has [employer], gas, oil, or water [employer] threatened to shut off services in your [...] week 04/11/2024 How often do you attend [facility] or [facility] services? Never 04/11/2024 Do you belong to any clubs o r organizations such as temple groups, unions, fraternal or athletic groups, or [...] place to sleep or slept in a custodial (including now)? No 07/24/2023 Housing Stability Vital Sign Answer Neville e Recorded In the last 12 months, was t here a time when you were not able to pay the mortgage or rent on time? No 04/11/2024 In the past 12 months, how m any times have you moved where you were living? 0 04/11/2024 At any time in the past 12 m [facility], were you homeless or living in a custodial (including now)? 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 Gender Identity Not on file Sexual Orientation Not on file Occupation Industry Job Start Date Job End Date retired Not on file Not on file Not on file documented as of this encounter Last Filed Vital Signs Vital Sign Reading Time Taken Comments Blood Pressure 104/70 04/16/2024 10:56 AM CDT Pulse 90 04/16/2024 10:56 AM CDT Temperature - - Respiratory Rate 18 04/16/2024 10:56 AM CDT Oxygen Saturation - - Inhaled Oxygen Concentration - - Weight 80.3 kg (177 lb) 04/16/2024 10:56 AM CDT Height 152.4 cm (5') 04/16/2024 10:56 AM CDT Body Mass Index 34.57 04/16/2024 10:56 AM CDT documented in this encounter Ordered Prescriptions Prescription Sig Dispense Quantity Refills Last Filled Start Date End Date vericiguat (Verquvo) 2.5 mg tablet Take 1 tablet (2.5 mg total) by mouth daily 14 tablet 04/16/2024 documented in this encounter Progress Notes * Maude Harris, NOEL - 04/16/2024 11:30 AM CDT Cardiology note Reason for Office Visit: Chief Complaint Patient presents with Atrial Fibrillation History of Present Illness: Tess Benedict is a 88 y.o. female who presents for follow up for CHF, peripheral artery disease. She is a history of atrial fibrillation, tobacco use, DVT left upper extremity, CHF, hypertension. Patient has historically refused cholesterol medication because she is fearful of intolerance due to her 's intolerance for lipid lowering medications. Reports bilateral lower extremity burning sensation throughout, worse in the evening. Also has restless leg syndrome. Notes this has been present for months but has been progressively getting worse. She is not diabetic. No claudication. Denies sensation of feet or legs feeling cold. Hx of tobaccouse. Patient had Venous Dopplers were negative for DVT, .arterial Dopplers showed disease in the SFA. Patient then had CTA abdominal aorta and bilateral lower extremities. There is a significant amount ofartifact on imaging due to bilateral knee replacements. Underwent AIF 02/18/22 on LLE with stents to Left common /external iliac artery as well as recanalization for long occluded segment the left superficial femoral artery with final placement Zilver stents. Underwent AIF 03/24/2022 which showed widely patient previously implanted stent in left iliac and prox SFA. On the right, mild disease in EIA, normal popliteal, long segment occlusion of SFA starting near ostium. Attempted recannulization was unsuccessful. Pletal was added. Left leg is more painful than right. She can walk about 100 yards. No clear claudications. Symptomsare not better after revascularization. Left skin is red. Edematous LT>RT. Unable to wear normalshoes. On aldactone and lasix. Insurance now covers xarelto. WT up 2 lbs. Her JONATHAN slightly decreased on the right, essentially stable from before. She was hospitalized for colitis and DANNY in December 2022. Her lasix was held. She called the office because her swelling was worsening. Her lasix was restarted on 01/03. Her swelling is improving but still present. She was started on Jardiance as an outpatient but became extremely thirsty and eventually stopped the medications Had urgent care visit for prolonged bleeding following minor trauma. She was hospitalized for shortness of breath earlier in June 2023 . She was diagnosed with asthma exacerbation / CHF exacerbation, BNP >5,000. She was diuresed and discharged on lasix 40 mg BID. Metolazone was also increased to 5 mg every other day. She was 184 lbs when she left the hospital.She is now up to 194 lbs. She was again hospitalized in Jun 2023 for decompensated HFpEF. She was treated with IV diuretics and discharged on Jardiance, Lasix, Aldactone, carvedilol. She has an allergy to lisinopril. She is currently 187 lb ( home weight 184 lbs). No chest pain, pressure. No dizziness or syncope. No shortness of breath or REDDY. Reports she feels tired all of the time. Limited in her walking to about 100 yrds d/t generalized fatigue and back pain. 48 hour Holter showed chronic atrial fibrillation with reasonable rate control. JONATHAN down some, 0.60 on the right and 0.64 on the left February 2024. She had a brief hospitalization for CHF exacerbation. BNP 5,000. CXR showing no pneumothorax or pleural effusion. Cardiomediastinal silhouette within normal limits. Mild pulmonary vascular congestion. IV Lasix 40 mg given. D-dimer 647. CT chest showing diffuse mosaic attenuation suggestive of interstitial pulmonary edema versusreactive airways disease. No pulmonary embolus. Troponin 26, 27 and 36. EKG showing atrial fibrillation. Potassium 6.5. She responded well to IV lasix. She initially felt better after discharge but as of the last couple of days, she feels like she is choking and has had to sleep in the recliner. No peripheral edema. She took a mucinex with no relief. She had another brief hospitalization for CHF exacerbation. Received 20 mg of IV lasix, no other medication changes. She has been increasing her water intake to 6 cups daily. She has been losing weight and feeling better. She is 177 lbs today. Her dry weight is about 172-176 lbs. She has a referralto see Dr Guillen. Review of Systems Constitutional: Positive for malaise/fatigue. Cardiovascular: Negative for chest pain, claudication, leg swelling, palpitations and syncope. Respiratory: Positive for shortness of breath. Negative for cough, sputum production and wheezing. Endocrine: Negative for cold intolerance and heat intolerance. Hematologic/Lymphatic: Bruises/bleeds easily. Skin: Negative for color change and nail changes. Musculoskeletal: Positive for arthritis. Gastrointestinal: Negative for bloating and abdominal pain. Neurological: Positive for paresthesias. Psychiatric/Behavioral: Negative for altered mental status. Histories: 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 CHF (congestive heart failure) (CMS/HCC) (HCC) Cough DVT (deep venous thrombosis) (CMS/HCC) ([facility]) 1976 upper left arm near elbow--- Fibrocystic breast GERD (gastroesophageal reflux disease) 4, not currently para 3 miss 1 Heel spur, unspecified laterality Hx of rheumatic fever HX OTHER MEDICAL 1991 strangulated hernia HX OTHER MEDICAL back pain; Comments: APO 01/13/2014 - HX OTHER MEDICAL melanoma surgery; Comments: APO 01/13/2014 - HX OTHER MEDICAL gastroplasty; Comments: APO 01/13/2014 - Hypertension Joint pain 04/2002 Left foot pain 03/1999 ? gout Lymphedema 12/06/2021 Malignant melanoma (HCC) Malignant melanoma; Comments: APO 01/13/2014 - Menopause Motion sickness Obesity PONV (postoperative nausea and vomiting) Restless leg Right carpal tunnel syndrome Superficial basal cell carcinoma 2003 Cancer, basal Cell Tobacco use 1-2ppd x 35yrs quit Past Surgical History: Procedure Laterality Date BARIATRIC SURGERY 1983 gastroplasty BREAST BIOPSY 1994 Breast biopsy CHOLECYSTECTOMY 1991 Cholecystectomy FL FLUORO GUIDED INJECTION HIP LEFT Left 01/28/2021 FLUORO GUIDED INJECTION HIP RIGHT Right 04/08/2019 HAND SURGERY 1975 arm surgery on the left, they removed all the lymph nodes on that side. HERNIA REPAIR Hernia repair KNEE ARTHROSCOPY 2003 Arthroscopy knee KNEE ARTHROSCOPY Arthroscopy knee OTHER SURGICAL HISTORY 1991 strangulated hernia: hernia repair OTHER SURGICAL HISTORY 2002 Cancer, basal Cell: resection with skin graft REPLACEMENT TOTAL KNEE Left 02/07/2017 Dr. Meier REPLACEMENT TOTAL KNEE Right TOTAL HIP ARTHROPLASTY Right 06/2019 The successful right hip replacement Dr. Mckenzie TOTAL HIP ARTHROPLASTY Left 11/01/2021 Dr. Mckenzie, [facility]. Family History Problem Relation Age of Onset Cancer Other Family history of Cancer, unknown; Arthritis Other Family history of Arthritis; Abdominal Aortic Aneurysm Father COPD Father Social History Tobacco Use Smoking status: Former Current packs/day: 0.00 Average packs/day: 2.0 packs/day for 30.0 years (60.0 ttl pk-yrs) Types: Cigarettes Start date: 1949 Quit date: 1981 Years since quittin.8 Smokeless tobacco: Never Substance and Sexual Activity Drug use: Never Sexual activity: Defer Alcohol Use: Not At Risk (04/10/2024) AUDIT-C Frequency of Alcohol Consumption: Never Average Number of Drinks: Patient does not drink Frequency of Binge Drinking: Never Allergies: Allergies Allergen Reactions Celecoxib Anaphylaxis Scopolamine Mental status changes Delirium postop after joint replacement due to this medicine Sulfa (Sulfonamide Antibiotics) Anaphylaxis Amlodipine Swelling Lisinopril Swelling Trazodone Swelling Tongue Duloxetine Hcl Unknown Cipro [Ciprofloxacin Hcl] Vomiting Cymbalta [Duloxetine] Fatigue Sleepiness, tiredness possibly related to 20 mg morning dose of this medicine discontinued 11/30/2020 Sinemet [Carbidopa-Levodopa] Other (See comments) Night hines Medications: Current Outpatient Medications Medication Sig Dispense Refill acetaminophen (TYLENOL) 500 mg tablet Take 2 tablets (1,000 mg total) by mouth 2 (two) times a day as needed for pain albuterol HFA (Proventil HFA) 90 mcg/actuation inhaler Inhale 2 puffs every 6 (six) hours as neededfor wheezing or shortness of breath 6.7 g 3 allopurinoL (ZYLOPRIM) 100 mg tablet Take 2 tablets (200 mg total) by mouth daily 60 tablet 2 apixaban (ELIQUIS) 2.5 mg tablet Take 1 tablet (2.5 mg total) by mouth 2 (two) times a day 60 tablet 0 ascorbic acid, vitamin C, 250 mg tablet,chewable Take 250 mg by mouth 3 (three) times a week Take with the iron 325 mg to ensure absorption Monday 90 tablet 1 atorvastatin (LIPITOR) 20 mg tablet Take 1 tablet (20 mg total) by mouth daily 30 tablet 11 carbamide peroxide (DEBROX) 6.5 % otic solution Administer 5 drops into each ear as needed for ear pain (monday right ear, monday left ear) 30 mL 1 cetirizine (ZyrTEC) 10 mg tablet Take 1 tablet (10 mg total) by mouth nightly 90 tablet 3 cholecalciferol (VITAMIN D-3) 2000 unit tablet Take 1 tablet (2,000 Units total) by mouth daily empagliflozin (JARDIANCE) 10 mg tablet Take 1 tablet (10 mg total) by mouth daily 30 tablet 11 Ferrocite 324 mg (106 mg iron) tablet Take 324 mg by mouth 3 (three) times a day fluticasone propion-salmeteroL (ADVAIR DISKUS) 100-50 mcg/dose diskus inhaler Inhale 1 puff 2 (two)times a day Rinse mouth with water after use. Do not swallow. furosemide (LASIX) 80 mg tablet Take 1 tablet (80 mg total) by mouth 2 (two) times a day gabapentin (NEURONTIN) 100 mg capsule Take 1 capsule (100 mg total) by mouth 3 (three) times a day 90 capsule 5 metOLazone (ZAROXOLYN) 5 mg tablet Take 1 tablet (5 mg total) by mouth 2 (two) times a week [address] (PROTONIX) 40 mg EC tablet Take 1 tablet (40 mg total) by mouth daily 90 tablet 2 polyethylene glycol (MIRALAX) 17 gram packet Take 1 packet (17 g total) by mouth daily as needed for constipation pramipexole (MIRAPEX) 0.75 mg tablet Take 1 tablet (0.75 mg total) by mouth 2 (two) times a day 60 tablet 3 propranoloL (INDERAL) 20 mg tablet Take 1 tablet (20 mg total) by mouth 2 (two) times a day with breakfast and lunch spironolactone (ALDACTONE) 25 mg tablet Take 1 tablet (25 mg total) by mouth daily 30 tablet 11 vericiguat (Verquvo) 2.5 mg tablet Take 1 tablet (2.5 mg total) by mouth daily 14 tablet 0 No current facility-administered medications for this visit. Vitals BP 104/70 (BP Location: Right arm, Patient Position: Sitting) Pulse 90 Resp 18 Ht 152.4 cm (5') Wt 80.3 kg (177 lb) LMP (LMP Unknown) BMI 34.57 kg/m?? Vitals: 04/16/24 1056 BP: 104/70 Pulse: 90 Resp: 18 Wt Readings from Last 3 Encounters: 04/16/24 80.3 kg (177 lb) 04/10/24 82.3 kg (181 lb 8 oz) 04/01/24 79.8 kg (176 lb) Body mass index is 34.57 kg/m??. Physical Exam Constitutional: General: She is not in acute distress. Appearance: Normal appearance. She is well-developed. She is not diaphoretic. Neck: Vascular: No carotid bruit or JVD. Trachea: No tracheal deviation. Cardiovascular: Rate and Rhythm: Normal rate. Rhythm irregular. Pulses: Intact distal pulses. Carotid pulses are 2+ on the right side and 2+ on the left side. Radial pulses are 2+ on the right side and 2+ on the left side. Dorsalis pedis pulses are 2+ on the right side and 2+ on the left side. Posterior tibial pulses are 2+ on the right side and 2+ on the left side. Heart sounds: Normal heart sounds, S1 normal and S2 normal. No murmur heard. No gallop. Pulmonary: Effort: Pulmonary effort is normal. Breath sounds: Examination of the right-middle field reveals decreased breath sounds. Examination of the right-lower field reveals decreased breath sounds. Decreased breath sounds present. Comments: Diminished throughout Abdominal: General: Bowel sounds are normal. Palpations: Abdomen is soft. Skin: General: Skin is warm and dry. Neurological: Mental Status: She is alert and oriented to person, place, and time. Psychiatric: Mood and Affect: Mood normal. Behavior: Behavior normal. Pedal pulses On the right, DP present by Doppler, PT is absent On the left, Dorsalis pedis is present by Doppler. Posterior tibial is absent No lower extremity edema. No open wounds Feet are warm Labs: Lab Results Component Value Date INR 1.44 (H) 06/24/2023 INR 1.61 (H) 02/16/2023 INR 1.1 03/24/2022 Lab Results Component Value Date PT 16.4 (H) 06/24/2023 PT 18.4 (H) 02/16/2023 PT 12.0 03/24/2022 Lab Results Component Value Date TSH 3.48 07/18/2023 FREET4 1.30 07/18/2023 Lab Results Component Value Date BILIRUBINU Negative 02/07/2017 AST 12 04/11/2024 ALT 7 04/11/2024 ALKPHOS 98 04/11/2024 ALBUMIN 2.8 (L) 04/11/2024 Lab Results Component Value Date SODIUM 130 (L) 04/11/2024 POTASSIUM 3.6 04/11/2024 CHLORIDE 92 (L) 04/11/2024 CO2 26 04/11/2024 ANIONGAP 13 04/11/2024 CK 114 11/09/2021 GLUCOSEUR 3+ (A) 06/25/2023 No results found for: BNP Lab Results Component Value Date SODIUM 130 (L) 04/11/2024 SODIUM 134 (L) 04/10/2024 SODIUM 133 (L) 04/10/2024 POTASSIUM 3.6 04/11/2024 POTASSIUM 4.3 04/10/2024 POTASSIUM 3.6 04/10/2024 CHLORIDE 92 (L) 04/11/2024 CHLORIDE 92 (L) 04/10/2024 CHLORIDE 89 (L) 04/10/2024 CO2 26 04/11/2024 CO2 33 (H) 04/10/2024 CO2 33 (H) 04/10/2024 BUNSER 68 (H) 04/11/2024 BUNSER 74 (H) 04/10/2024 BUNSER 76 (H) 04/10/2024 CREATININE 1.39 (H) 04/11/2024 CREATININE 1.75 (H) 04/10/2024 CREATININE 1.82 (H) 04/10/2024 GFRNAA 37 (L) 04/11/2024 GFRNAA 28 (L) 04/10/2024 GFRNAA 27 (L) 04/10/2024 GLUCOSE 79 04/11/2024 CALCIUM 8.7 04/11/2024 CALCIUM 9.1 04/10/2024 CALCIUM 9.6 04/10/2024 ALBUMIN 2.8 (L) 04/11/2024 ALBUMIN 3.6 04/10/2024 ALBUMIN 3.5 03/15/2024 PHOS 3.8 01/25/2024 PHOS 4.7 (H) 12/29/2023 PHOS 3.4 12/29/2022 Lab Results Component Value Date SODIUM 130 (L) 04/11/2024 POTASSIUM 3.6 04/11/2024 CHLORIDE 92 (L) 04/11/2024 CO2 26 04/11/2024 ANIONGAP 13 04/11/2024 BUNSER 68 (H) 04/11/2024 CREATININE 1.39 (H) 04/11/2024 GLUCOSE 79 04/11/2024 CALCIUM 8.7 04/11/2024 BILITOT 0.3 04/11/2024 PROT 6.1 (L) 04/11/2024 ALBUMIN 2.8 (L) 04/11/2024 ALKPHOS 98 04/11/2024 ALT 7 04/11/2024 AST 12 04/11/2024 Lab Results Component Value Date WBC 9.1 04/11/2024 HGB 11.2 (L) 04/11/2024 HCT 34.6 (L) 04/11/2024 LABPLAT 298 04/11/2024 MPV 9.4 04/11/2024 RBC 4.02 04/11/2024 MCV 86.1 04/11/2024 MCH 27.9 04/11/2024 MCHC 32.4 04/11/2024 RDWCV 15.9 (H) 04/11/2024 RDWSD 49.6 (H) 04/11/2024 NRBCABS 0.00 04/11/2024 Lab Results Component Value Date CHOL 153 04/11/2024 TRIG 87 04/11/2024 HDL 39 (L) 04/11/2024 LDLCALC 97 04/11/2024 NONHDLCHOL 114 04/11/2024 CHOLHDL 4 04/11/2024 Testing: Echocardiogram 04/2021 Normal left ventricular systolic function with no focal wall motion abnormalities. Normal left ventricular size. Mild concentric left ventricular hypertrophy. Ejection fraction is measured at 68 %. There is moderate enlargement of left atrium. There is moderate enlargement of right atrium. Mild mitral valve regurgitation. Normal right ventricular systolic pressure. Estimated peak RVSP is 35 mmHg. Mild tricuspid regurgitation. Technically difficult study with suboptimal parasternal views. calcifications in ascending aorta with normal caliber. EKG 09/15/2021 ATRIAL FIBRILLATION WITH RAPID VENTRICULAR RESPONSE Arterial duplex was suggestive of stenosis in left mid/distal SFA CT abdominal aorta and bilateral lower extremities 11/09/2021 Abdominal aorta demonstrates approximately 50% stenosis due to calcified plaque in the infrarenal segment. The right iliac system demonstrates regions of 50-75% stenosis limiting inflow to the right lower extremity. The right leg demonstrates complete occlusion of superficial femoral artery with reconstitution of the above knee popliteal at the bottom of the adductor canal. The popliteal is obscured by metallic artifact. 3 distal runoff vessels are patent. The left iliac system demonstrates 50-75% stenosis at multiple sites limiting inflow to the left lower extremity. The left leg demonstrates complete occlusion of the superficial femoral artery from its origin with reconstitution of the above knee popliteal. The popliteal is obscured by metallic artifact. 3 patent distal runoff vessels are noted. Bilateral arterial lower extremity Dopplers 11/09/2021 Abnormal flow of the mid to distal left superficial femoral artery equivocal for area of occlusion with areas where pulsatile flow is not seen. CTA runoff is recommended. JONATHAN 04/11/22 1. There is moderate arterial disease in the right lower extremity, JONATHAN 0.59, monophasic wave form. 2. There is mild arterial disease in the left lower extremity, JONATHAN 0.82, monophasic wave form. Echo in 05/2022 Conclusions: Normal left ventricular systolic function with no focal wall motion abnormalities. Normal left ventricular size. Normal left ventricular wall thickness. Ejection fraction is measured at 70 %. There is moderate enlargement of left atrium. There is moderate enlargement of right atrium. No evidence of hemodynamically significant aortic stenosis by Doppler. Aortic cusps appear mildly sclerotic. Normal right ventricular systolic pressure. Estimated peak RVSP is 35 mmHg. Mild tricuspid regurgitation. Probable Atrial fibrillation. Technically difficult study with suboptimal views. Stress test in 04/2022 Conclusions: 1. Myocardial Perfusion: Normal rest and stress images. 2. Left ventricle: Normal size and systolic function (visually confirmed EF >50%). Ankle-brachial index in June 2022 1. [id number] arterial insufficiency at rest in the right lower extremity with ankle-brachial index 0.71 which is slightly improved compared to prior value of 0.59 in March 2022. Monophasic waveform at the ankle. 2. Mild arterial insufficiency at rest in the left lower extremity with ankle-brachial index 0.87. This is slightly improvement compared to prior value of 0.82 in March 2022. Biphasic waveform at the ankle. JONATHAN 10/24/2022 1. [id number] arterial insufficiency at rest in the right lower extremity with ankle-brachial index 0.69. This is essentially unchanged from prior value of 0.71 in June 2022. Biphasic waveform at the ankle. 2. Mild arterial insufficiency at rest in the left lower extremity with ankle-brachial index 0.77. This represents slight decline compared to prior value of 0.87 in June 2022. Biphasic waveform at the ankle. Echo in 05/2023 Technically difficult study with limited views. Normal left ventricular size. Mild concentric left ventricular hypertrophy. Diastolic dysfunction is present. Ejection fraction is measured at 62 %. Normal right ventricular size. Normal right ventricular systolic function. Mitral valve leaflets appear mildly thickened. Mild mitral annular calcification. Trivial regurgitation of the mitral valve. Aortic cusps appear moderately calcified. Aortic cusps appear mildly restricted. Mild aortic stenosis. Aortic valve area by planimetry 1.7 cm2. No aortic regurgitation. 48 hour Holter monitor in August 2023 1. 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 Average heart rate of 84 beats per minute. Total monitoring time of 48 hours. 2. Heart rate and rate variability is appropriate. 3. No prolonged pauses. 4. Rare PVCs with 90 PVCs corresponding to less than 1% total beats. Many of these so-called PVCs could be due to Billy phenomena or aberrant conduction. 5. The patient recorded no symptoms during the study. JONATHAN 09/06/2023 1. Moderate to severe arterial insufficiency at rest in both lower extremities with ankle-brachial index 0.57 on the right and 0.64 on the left. 2. Monophasic to biphasic waveforms at the ankle bilaterally. JONATHAN 02/22/2024 1. Moderate to severe arterial insufficiency at rest in both lower extremities with an ankle-brachial index of 0.60 on the right 0.63 on the left. 2. Monophasic to biphasic waveform at the ankle bilaterally. 3. The results are essentially unchanged when compared to prior study in August 2023. Diagnoses 1. Atypical leg symptoms ? Peripheral artery disease related. Pt with occlusion of both SFA and moderate iliac disease. Symptoms suggestive of claudication given improvement with short rest. Patient underwent stenting of the left iliac system as well as recanalization of the left superficial femoral artery in February 2022. Attempted staged intervention on the right superficial femoral artery was not successful. Postprocedure, legs are not much improved. JONATHAN 0.57 on the right and 0.64 on the left in August 2023. Unchanged in February 2024 2. Atrial fibrillation, probably chronic on Xarelto. Normal noninvasive evaluation including echo in 05/2023 and stress test in April 2022 3. Stenosis in abdominal aorta by CTA, not noticed on angiography 4. 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 S/p bilateral hip and knee replacement. 6. Heart failure with preserved ejection fraction. Elevated BNP however with hyponatremia 7. Severe anemia, ? Cause , received Fe infusion. 8. Dyslipidemia, lipid at target in 07/2023 (LDL 64) Plan Continue Jardiance, aldactone, Xarelto. Her dry weight is 172-176 lbs. Today, she is 177 lbs. She is taking lasix 80 mg BID, metolazone 5 mg twice weekly and aldactone 25 mg daily. Add Verquvo 2.5 mg daily for 2 weeks, then plan to increase to 5 mg x 2 weeks Reviewed recent JONATHAN report. Patient does not have open wounds. Does not appear to have lifestyle limiting claudications at the current workload. She walks slowly and had prior hip replacements. We discussed the need for revascularization if worsening claudications or development of open wounds. She is to call back if that happens RTC in 3 months Diagnoses and all orders for this visit: Chronic atrial fibrillation (HCC) (Primary) Chronic heart failure with preserved ejection fraction (CMS/HCC) (HCC) Atherosclerosis of [place] arteries of extremities with rest pain, right leg (HCC) 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 Atherosclerosis of [place] arteries of extremities with intermittent claudication, bilateral legs (HCC) Paroxysmal atrial fibrillation (CMS/HCC) (HCC) Other orders - vericiguat (Verquvo) 2.5 mg tablet; Take 1 tablet (2.5 mg total) by mouth daily No follow-ups on file. 04/16/2024 11:52 AM Maude Harris NP Cc:Pepper Morgan MD documented in this encounter Plan of Treatment [...] as of this encounter Visit Diagnoses Diagnosis Chronic atrial fibrillation (HCC)- Primary Atrial fibrillation Chronic heart failure with preserved ejection fraction (CMS/HCC) (HCC) Atherosclerosis of [place] arteries of extremities with rest pain, right leg (HCC) 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 Essential hypertension, benign Atherosclerosis of [place] arteries of extremities with intermittent claudication, bilateral legs (HCC) Paroxysmal atrial fibrillation (CMS/HCC) (HCC) Atrial fibrillation documented in this encounter Care Teams Stope Miner Relationship Specialty Start Date End Date Pepper Morgan MD PCP - General 09/16/16 Hank Garibay MD [address] [facility] [address] [place] [address] Surgeon Orthopedic Surgery 03/27/17 Jacky Murry MD [address] [facility] [place] [address] Ophthalmology 03/27/17 Puma Mckenzie MD [address] [facility] [address] [place] [address] Surgeon Orthopedic Surgery 07/11/19 Neha Jackson, PT Physical Therapist Physical Therapy 12/01/21 Stalin Arauz MD [address] [facility] [address] [place] [address] Consulting Physician Cardiology 12/08/22 Tiffany Rojas PA [address] [place] [address] Gastroenterology 12/30/22 Klaus Deshpande MD [address] [facility] [place] [address] Consulting Physician Neurology 06/13/23 documented as of this encounter
--- OUTSIDE RECORDS SUMMARY | 2024-06-18 18:47 | XMS_ITS | Encounter Summary ---
Author Organization [facility] Healthcare Address [address] [place] [address] Care Team Providers Care Lead Engineer Name Role Phone Pepper Morgan MD Primary Care Provider + [phone] Hank Garibay MD Unavailable [phone] Jacky Murry MD Unavailable [phone] Puma Mckenzie MD Unavailable [phone] Neha Jackson PT Unavailable Unavailable Stalin Arauz MD Unavailable [phone] Tiffany Rojas Unavailable [phone] Klaus Deshpande MD Unavailable [phone] Encounter Details Date Type Department Care Team (Late st Contact Info) Description 04/30/2024 Telephone Jolly Parking Enforcement Technician at [address] [place] [id number] Hai Dalton MA Social History Tobacco Use Types Packs/Day Years Used Date Smoking Tobacco: Former Cigarettes 2 30 1 952 - 1981 Smokeless Tobacco: Never Alcohol Use Standard Drinks/Week Comments Not Currently 0 (1 standard drink = 0.6 oz pur e alcohol) [facility] Utilities Answer Date Recorded In the past 12 months has [employer], gas, oil, or water company threatened to [...] often do you attend chur ch or hindu services? Never 04/11/2024 Do you belong to any clubs o r organizations such as baptist groups, unions, fraternal or athletic groups, or [...] on file Legal Sex Female 4:33 AM LPN RN HOSPICE Gender Identity Not on file Sexual Orientation Not on file Occupation Industry Job Start Date Job End Date retired Not on file Not on file Not on file documented as of this encounter Miscellaneous Notes * Telephone Encounter - Hai Dalton MA - 05/07/2024 11:09 AM CST Patient states weight is down to 172 and that she feels much better. RN HOSPICE * Telephone Encounter - Hai Dalton MA - 05/07/2024 8:47 AM CST Patient called back with an update since stopping Verquvo. She states her symptoms are much better since stopping. She also wants to you know the spot on her leg that you had looked at looks bad and she has had to apply neosporin and put a bandage on it. RN HOSPICE * Telephone Encounter - Hai Dalton MA - 04/30/2024 12:12 PM CST Patient advised RN HOSPICE * Telephone Encounter - Hai Dalton MA - 04/30/2024 8:47 AM CST Patient called stating she is having a reaction to the Verquvo you prescribed. States it is making her shaky while walking and to the point she cannot cook or get a fork to her mouth. Please advise RN HOSPICE documented in this encounter Plan of Treatment [...] on filedocumented in this encounter Care Teams Lead Engineer Relationship Specialty Start Date End Date Pepper Morgan MD PCP - General 09/16/16 Hank Garibay MD [address] [facility] [address] [place] [address] Surgeon Orthopedic Surgery 03/27/17 Jacky Murry MD [address] [facility] [address] [place] [address] Ophthalmology 03/27/17 Puma Mckenzie MD [address] [facility] [address] [facility] [address] [place] [address] Surgeon Orthopedic Surgery 07/11/19 Neha Jackson, PT Physical Therapist Physical Therapy 12/01/21 Stalin Arauz MD [address] [facility] [address] [place] [address] Consulting Physician Cardiology 12/08/22 Tiffany Rojas PA [address] [facility] [address] [place] [address] Gastroenterology 12/30/22 Klaus Deshpande MD [address] [facility] [address] [place] [address] Consulting Physician Neurology 06/13/23 documented as of this encounter
--- OUTSIDE RECORDS SUMMARY | 2024-06-18 18:47 | XMS_ITS | Encounter Summary ---
Author Organization [facility] Address [address] [facility] [address] [place] [address] Phone Care Team Providers Care Leather Heel Breaster Name Role Phone Unavailable Primary Care Provider Unavailabl e Encounter Details Date Type Department Care Team (Late st Contact Info) Description 06/03/2024 Documentation Only [facility]. [address] [facility] [address] [place] [address] Tristin Guillen MD [address] [facility] [address] [place] [address] Social History Tobacco Use Types Packs/Day Years Used Date Smoking Tobacco: Never Assessed Comments Unknown Sex and Gender Information Value Date Recorded Sex Assigned at Not on file Legal Sex Female 11:01 AM EDT Gender Identity Not on file Sexual Orientation Not on file documented as of this encounter Plan of Treatment Upcoming Encounters Date Type Department Care Team (Late st Contact Info) Description 08/19/2024 11:30 AM MARKETING STRATEGIST Office Visit [facility]. [address] [facility] [address] [place] [id number] Tristin Guillen MD [address] [facility] [address] [place] [address] documented as of this encounter Visit Diagnoses Not on filedocumented in this encounter
--- OUTSIDE RECORDS SUMMARY | 2024-06-18 18:47 | XMS_ITS | Encounter Summary ---
Author Organization [facility] Healthcare Address [address] [place] [address] Care Team Providers Care Director Plans Name Role Phone Pepper Morgan MD Primary Care Provider [phone] Hank Garibay MD Unavailable [phone] Jacky Murry MD Unavailable [phone] Puma Mckenzie MD Unavailable [phone] Neha Jackson PT Unavailable Unavailable Stalin Arauz MD Unavailable [phone] Tiffany Rojas Unavailable [phone] Klaus Deshpande MD Unavailable [phone] Reason for Visit * Reason Onset Date Comments Bleeding/Bruising 05/07/2024 Encounter Details Date Type Department Care Team (Late st Contact Info) Description 05/07/2024 Telephone [facility] [address] [place] [address] Pepper Morgan MD [address] [address] Bleeding/Bruising Social History Tobacco Use Types Packs/Day Years Used Date Smoking Tobacco: Former Cigarettes 2 30 1 952 - 1981 Smokeless Tobacco: Never Alcohol Use Standard Drinks/Week Comments Not Currently 0 (1 standard drink = 0.6 oz pur e alcohol) [facility] Utilities Answer Date Recorded In [...] often do you attend chur ch or catholic services? Never 04/11/2024 Do you belong to any clubs o r organizations such as judaism groups, unions, fraternal or athletic groups, or [...] place to sleep or slept in a longterm (including now)? No 07/24/2023 Housing Stability Vital [...] time in the past 12 m [facility], were you homeless or living in a longterm (including now)? No 04/11/2024 Personal Safety Answer [...] on file Legal Sex Female 4:33 AM SOLVENT PLANT TREATER Gender Identity Not on file Sexual Orientation Not on file Occupation Industry Job Start Date Job End Date retired Not on file Not on file Not on file documented as of this encounter Miscellaneous Notes * Telephone Encounter - Milana Fuentes RN - 05/07/2024 4:43 PM CST Spoke with Dr Morgan pt to have a e visit Pt is scheduled ENT PLANT TREATER * Telephone Encounter - Katy Lopes RN - 05/07/2024 4:24 PM SOLVENT PLANT TREATER TOKMS: Patient has an area on her lower front of L leg that started off like a bruise and now lookslike a red spot. Area is not gushing with blood but has blood on the bandaid when she takes it off. It is warm around the area and red. The area is about the size of a dime. No know injury. Cardiology saw her on 04.16 and they thought the bruise was from the blood thinner she was on. Patient was switched to Eliquis at the office visit. Denied any sob, swelling, or chest pain. Denied any fever. No available appts until Monday. Please advise ENT PLANT TREATER * Telephone Encounter - Jacqueline Plasencia - 05/07/2024 3:52 PM SOLVENT PLANT TREATER Patient called stating that she has had a bruise for about a week. States that on the she noticed it was getting more red and started bleeding on the 16. States that it has been continuously bleeding since 05/04. States she does have a bandage on it now. [phone] ENT PLANT TREATER documented in this encounter Plan of Treatment Not on file documented as of this encounter Goals Goal Patient Goal Type Associated Problems Recent Progress Patient-Stated? Author BH-Pain Behavioral Health Improving( 3:34 PM CDT) No Domitila Garay, RN Note: Patient will establish a comfort-function goal and identify the pain level that will allow the patient to perform desired activities and achieve an acceptable quality of life. documented as of this encounter Visit Diagnoses Not on filedocumented in this encounter Care Teams Director Plans Relationship Specialty Start Date End Date Pepper Morgan MD PCP - General 09/16/16 Hank Garibay MD [address] [facility] [address] [place] [address] Surgeon Orthopedic Surgery 03/27/17 Jacky Murry MD [address] [facility] [address] [facility] [address] [place] [address] Ophthalmology 03/27/17 Puma Mckenzie MD [address] [facility] [address] [facility] [address] [place] [address] Surgeon Orthopedic Surgery 07/11/19 Neha Jackson, PT Physical Therapist Physical Therapy 12/01/21 Stalin Arauz MD [address] [facility] [address] [place] [address] Consulting Physician Cardiology 12/08/22 Tiffany Rojas PA [address] [facility] [address] [address] [place] [address] Gastroenterology 12/30/22 Klaus Deshpande MD [address] [facility] [address] [place] [address] Consulting Physician Neurology 06/13/23 documented as of this encounter
--- OUTSIDE RECORDS SUMMARY | 2024-06-18 18:47 | XMS_ITS | Encounter Summary ---
Author Organization [facility] Healthcare Address [address] [place] [address] Care Team Providers Care Ranch Manager Name Role Phone Pepper Morgan MD Primary Care Provider + [phone] Hank Garibay MD Unavailable [phone] Jacky Murry MD Unavailable [phone] Puma Mckenzie MD Unavailable [phone] Neha Jackson PT Unavailable Unavailable Stalin Arauz MD Unavailable [phone] Tiffany Rojas PA Unavailable [phone] Klaus Deshpande MD Unavailable [phone] Reason for Referral * Consultation (Routine) - Closed Specialty Diagnoses / Procedures Referred By Contac t Referred To Contact Nephrology Diagnoses CKD stage 3b, GFR 30-44 ml/min (FORMERLY [facility]) Jailyn Castro MD [address] [place] [address] Phone: tel: fax: Kristin Guillen MD [address] [place] [address] Phone: tel: fax: Referral ID Status Reason Start Date Expiration Date V isits Requested Visits Authorized [id number] Closed Specialty Services Required 04/11/2024 05/11/2025 1 1 Question Answer Please select the performing region: [facility] Medical Group [[id number]] Please select the performing department: [facility] NEPH BL[facility]LE 280 [[id number]] To provider: KRISTIN GUILLEN [[id number]] # of visits: 1 Comments CKD. Check BMP periodically as well. Reason for Visit * Reason Comments Abnormal Lab * Auth/Cert (Routine) Specialty Diagnoses / Procedures Referred By Contac t Referred To Contact Diagnoses DANNY (acute kidney injury) (HCC) Acute on chronic congestive heart failure, unspecified heart failure type (HCC) Procedures na Referral ID Status Reason Start Date Expiration Date Visits Re quested Visits Authorized [id number] 1 1 Encounter Details Date Type Department Care Team (Late st Contact Info) Description 04/10/2024 4:01 PM CDT - 04/11/2024 1:51 PM CDT Emergency [facility] [address] [place] [address] Edwina Parish MD [address] [address] Jailyn Castro MD [facility] [place] [address] DANNY (acute kidney injury) (HCC) (Primary Dx); Acute on chronic congestive heart failure, unspecified heart failure type (HCC); CKD stage 3b, GFR 30-44 ml/min (HCC) Discharge Disposition: Discharge to home or self care Social History Tobacco Use Types Packs/Day Years Used Date Smoking Tobacco: Former Cigarettes 2 30 1 952 - 1981 Smokeless Tobacco: Never Alcohol Use Standard Drinks/Week Comments Not Currently 0 (1 standard drink = 0.6 oz pur e alcohol) [facility] Utilities Answer Date Recorded In the past 12 months has e electric, gas, oil, or water company [...] often do you attend chur ch or latter day services? Never 04/11/2024 Do you belong to any clubs o r organizations such as yarsani groups, unions, fraternal or athletic groups, or [...] money to buy more. Never true 04/11/20 24 Within the past 12 months, t he [...] place to sleep or slept in a snf (including now)? No 07/24/2023 Housing Stability Vital Sign Answer Neville e Recorded In the last 12 months, was t here a time when you were not able to pay the mortgage or rent on time? No 04/11/2024 In the past 12 months, how m any times have you moved where you were living? 0 04/11/2024 At any time in the past 12 m [facility], were you homeless or living in a snf (including now)? 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 Gender Identity Not on file Sexual Orientation Not on file Occupation Industry Job Start Date Job End Date retired Not on file Not on file Not on file documented as of this encounter Last Filed Vital Signs Vital Sign Reading Time Taken Comments Blood Pressure 109/79 04/11/2024 8:30 AM CDT Pulse 70 04/11/2024 12:09 PM CDT Temperature 36.4 ??C (97.6 ??F) 04/11/2024 8:30 AM CD T Respiratory Rate 20 04/11/2024 8:30 AM CDT Oxygen Saturation 92% 04/11/2024 8:30 AM CDT Inhaled Oxygen Concentration - - Weight 82.3 kg (181 lb 8 oz) 04/10/2024 6:40 PM CDT Height 152.4 cm (5') 04/10/2024 6:40 PM CDT Body Mass Index 35.45 04/10/2024 6:40 PM CDT documented in this encounter Discharge Summaries * Jailyn Castro MD - 04/11/2024 12:47 PM CDT Inpatient Discharge Summary BRIEF OVERVIEW Admitting Provider: Edwina Parish MD Discharge Provider: No att. providers found Primary Care Physician at Discharge: Pepper Morgan MD [phone] Admission Date: 04/10/2024 Discharge Date: 04/11/2024 Admission Location: [facility] Problems/Diagnoses: Principal Problem: DANNY (acute kidney injury) (HCC) Resolved Problems: No resolved hospital problems. DETAILS OF HOSPITAL STAY Presenting Problem/History of Present Illness: Patient is a 88 yo F with h/o CHF, DVT left arm, atrial fibrillation, GERD, hypertension, lymphedema and obesity admitting to general medicine for weight gain concern for fluid retention. Patient reported that she gained about 4lb in one day with recent change of metolazone from daily to 2x per week, fluid restriction 1500cc daily. She got her labs done by pcp, who recommended she to go ER due toconcern of fluid overload. Of note, patient was most recently admitted 03/15-03/16/2024 for shortness of breath In the ER: Vitals afebrile T 36.3??, HR 73, RR 18, BP 130/61, on room air sat 92%. EKG: AFib with HR 68, QTC 415: No acute ST change compared to previous, low voltage. Pro BNP 5963 previously 3035. Troponin 26, 23. WBC 9.7, Hb 12.2 WNL, PLT 334. Na 134, potassium 4.3, creatinine 1.75 baseline 1.1- 1.8. CXR: unremarkable. Last echo was in 06/15/2023 noted EF 62%, diastolic dysfunction. In the ED, cardiology was consulted and recommended given 20 mg IV Lasix. She was admitted for medical management Hospital Course: Patient was admitted and treated for - Suspect CHF exacerbation, diastolic. - BNP 5198. - Continue IV Lasix. - Jardiance. Consulted Cardiology: HFpEF - Does not appear fluid overloaded on exam. Asymptomatic. Chest xray is clear. Only mild weight gain. BNP is elevated but appears chronically elevated. Not convinced in acute HF. TTE pending. Stable for discharge from a cardiology standpoint. Afib PAD s/p 3 stents HTN - Ordered Echocardiogram. - Lipid panel shows LDL 97. Recommend starting Lipitor 20 mg daily. - Continue home medications of Eliquis 2.5 mg BID, Propranolol 20 mg BID, Lasix 80 mg BID, Metolazone 5 mg x2 weekly can use prn if fluid retaining, jardiance 10 mg daily, and aldactone 25 mg daily. - Recommend referral to Dr. Guillen, Nephrology for CKD. Check BMP periodically as well. Other chronic medical issues: - History of DVT. Continue Eliquis. - History of atrial fibrillation. Continue Eliquis. - Obesity. BMI 35.35. Her weight loss encouraged. - Gout. Continue Allopurinol. - Restless leg syndrome. Continue Mirapex. - Essential tremor. On propanolol. Active Issues Requiring Follow-up: Test Results Pending at Discharge: Operative Procedures Performed: Other Procedures: Pertinent Test Results: 04/11/2024: 2D echo CONCLUSIONS: Normal left ventricular size. Mild concentric left ventricular hypertrophy. Hyperdynamic left ventricular function. No focal wall motion abnormalities. Ejection fraction is measured at >70 %. Normal right ventricular size. Normal right ventricular systolic function. There is mild enlargement of left atrium. Mitral valve leaflets appear mildly thickened. Mild mitral annular calcification. Mild mitral valve regurgitation. No evidence of hemodynamically significant aortic stenosis by Doppler. Aortic cusps appear mildly sclerotic. Normal structure of the tricuspid valve. Moderate pulmonary hypertension based on right ventricular systolic pressure. Estimated peak RVSP is 48 mmHg. Mild tricuspid regurgitation. Normal pericardium with no significant pericardial effusion. Technically difficult study with limited views and visualization. Subcostal views not available. Valves in general are poorly visualized. Patient appears to be in atrial fibrillation during this study. XR Chest 1 Vw Portable Result Date: 04/10/2024 ECG 12 lead Result Date: 04/10/2024 Narrative: Vent Rate: 68 bpm RR Interval: 872 msec [place] Interval: 0 msec QRS Duration: 73 msec QT Interval: 397 msec QTC Interval: 415 msec P-R-T Anna: [id number] - 65 - 33 degrees IMPRESSION: ATRIAL FIBRILLATION LOW QRS VOLTAGE IN PRECORDIAL LEADS [QRS DEFLECTION < 1.0 mV IN CHEST LEADS] ABNORMAL RHYTHM ECG Electronically Signed By: Cardiac Testing: Echocardiogram: 06/15/2023 CONCLUSIONS: Technically difficult study with limited views. Normal [...] by planimetry 1.7 cm2. No aortic regurgitation. EK04/10/24 IMPRESSION: ATRIAL FIBRILLATION LOW QRS VOLTAGE IN PRECORDIAL LEADS [QRS DEFLECTION < 1.0 mV IN CHEST LEADS] ABNORMAL RHYTHM ECG Holter monitor 08/23/2023 CONCLUSIONS: 1. 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 Average heart rate of 84 beats per minute.Total monitoring time of 48 hours. 2. Heart rate and rate variability is appropriate. 3. No prolonged pauses. 4. Rare PVCs with 90 PVCs corresponding to less than 1% total beats.Many of these so-called PVCs could be due to Billy phenomena or aberrant conduction. 5. The patient recorded no symptoms during the study. Discharge Details Physical Exam at Discharge: Discharge Condition: good Pulse: 70 Resp: 20 BP: 109/79 Temp: 36.4 ??C (97.6 ??F) Weight: 82.3 kg (181 lb 8 oz) Pertinent Exam Findings at Discharge: Eyes: EOMI, ESCOBAR, sclare non icteric Neck: supple, no nuchal ridigity, no gross carotid bruits appreciated ENT: No gross oral lesion, tongue midline, mucosa moist Respiratory: Lungs -CTA bilaterally, good inspiratory effort Cardiovascular: Heart sounds- [id number], no significant murmur or gallop GI: Abdomen-+BS, Non Tender, Non distended, No gross hepatomegaly Lower Ext: No gross edema, pedal artery pulses present bilaterally Neuro: good coordination, normal speech Musculoskeletal: no gross joint erythema, edema, tenderness Genitourinary: No New change Skin: No new change Psychiatric: Normal affect, good judgment Discharge Disposition: Discharge to home or self care Code Status at Discharge: FULL Discharge Instructions: Activity Instructions Discharge activity: Resume normal activity Diet Instructions Adult Discharge Diet Diet Type: Return to previous diet Discharge Medications: Current Medications TAKE these medications acetaminophen 500 mg tablet Take 2 tablets (1,000 mg total) by mouth 2 (two) times a day as needed for pain Commonly known as: TYLENOL albuterol HFA 90 mcg/actuation inhaler Inhale 2 puffs every 6 (six) hours as needed for wheezing or shortness of breath Commonly known as: Proventil HFA allopurinoL 100 mg tablet Take 2 tablets (200 mg total) by mouth daily Commonly known as: ZYLOPRIM Notes to patient: gout apixaban 2.5 mg tablet Take 1 tablet (2.5 mg total) by mouth 2 (two) times a day Commonly known as: ELIQUIS Notes to patient: Blood thinner ascorbic acid (vitamin C) 250 mg tablet,chewable Take 250 mg by mouth 3 (three) times a week Take with the iron 325 mg to ensure absorption Monday Notes to patient: supplement atorvastatin 20 mg tablet Take 1 tablet (20 mg total) by mouth daily Commonly known as: LIPITOR Notes to patient: cholesterol carbamide peroxide 6.5 % otic solution Administer 5 drops into each ear as needed for ear pain (monday right ear, monday left ear) For: an earwax blockage Commonly known as: DEBROX cetirizine 10 mg tablet Take 1 tablet (10 mg total) by mouth nightly Commonly known as: ZyrTEC Notes to patient: allergies cholecalciferol 2000 unit tablet Take 1 tablet (2,000 Units total) by mouth daily Commonly known as: VITAMIN D-3 Notes to patient: supplement empagliflozin 10 mg tablet Take 1 tablet (10 mg total) by mouth daily Commonly known as: JARDIANCE Notes to patient: diabetes Ferrocite 324 mg (106 mg iron) tablet Take 324 mg by mouth 3 (three) times a day Generic drug: ferrous fumarate Notes to patient: supplement fluticasone propion-salmeteroL 100-50 mcg/dose diskus inhaler Inhale 1 puff 2 (two) times a day Rinse mouth with water after use. Do not swallow. Commonly known as: ADVAIR DISKUS Notes to patient: COPD furosemide 80 mg tablet Take 1 tablet (80 mg total) by mouth 2 (two) times a day Commonly known as: LASIX Notes to patient: Water pill gabapentin 100 mg capsule Take 1 capsule (100 mg total) by mouth 3 (three) times a day Commonly known as: NEURONTIN Notes to patient: Nerve pain metOLazone 5 mg tablet Take 1 tablet (5 mg total) by mouth 2 (two) times a week Commonly known as: ZAROXOLYN Notes to patient: Water pill pantoprazole DR 40 mg EC tablet Take 1 tablet (40 mg total) by mouth daily For: Treatment of Non-Bleeding Gastric Disorder Commonly known as: PROTONIX 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 polyethylene glycol 17 gram packet Take 1 packet (17 g total) by mouth daily as needed for constipation For: constipation Commonly known as: MIRALAX pramipexole 0.75 mg tablet Take 1 tablet (0.75 mg total) by mouth 2 (two) times a day Commonly known as: MIRAPEX Notes to patient: Restless legs propranoloL 20 mg tablet Take 1 tablet (20 mg total) by mouth 2 (two) times a day with breakfast and lunch For: essential tremor Commonly known as: INDERAL Notes to patient: Blood pressure spironolactone 25 mg tablet Take 1 tablet (25 mg total) by mouth daily Commonly known as: ALDACTONE Notes to patient: Water pill/blood pressure Outpatient Follow-Up: Future Appointments Date Time Provider Department Center 04/29/2024 1:00 PM Jadyn Hobson PA [facility] OS 130B Specialty 05/03/2024 11:00 AM Maude Harris NP [facility] CAR 122 PSA 07/15/2024 9:30 AM Stalin Arauz MD [facility] CAR 122 PSA 08/26/2024 1:00 PM Pepper Morgan MD [facility] 09/23/2024 10:45 AM Klaus Deshpande MD [facility] Specialty Contact Information for Follow-ups Kristin Guillen MD Specialty: Nephrology, Internal Medicine [address] [place] [address] Next Steps: Follow up Comments: CKD. Check BMP periodically as well. Questions: Please select the performing region: [facility] Medical Group Please select the performing department: [facility] NEPH BL[facility]LE 280 To provider: KRISTIN GUILLEN # of visits: 1 Referral Status: Ready for Initial Scheduling Pepper Morgan MD Specialty: Internal Medicine, Family Medicine, Geriatric Medicine Relationship: PCP - General [address] [place] [address] Next Steps: Follow up in 2 week(s) My total encounter time on was 35 minutes which was spent in the activities documented in the note. This includes time spent prior to the visit and after the visit in direct care of the patient. This time does not include time spent in any separately reportable services. documented in this encounter Discharge Instructions * Discharge Instructions* Concetta Alejandre RN - 04/11/2024 1:33 PM CDT If you have any questions or concerns after discharge, please call [facility] at [phone]. * Appointments* Suze Nogueira RN - 04/11/2024 8:12 AM CDT You have a new hospital follow-up appointment in the [facility] office with Maude Harris NP on May 03, 2024 @ 11:00 a.m. The office is located directly across from the hospital in [address], [address]. * Attachments The following attachments cannot be sent through Care Everywhere. * Atorvastatin (By mouth) (Welsh) documented in this encounter Medications at Time of Discharge acetaminophen (TYLENOL) 500 mg tablet Take 2 tablets (1,000 mg total) by mouth 2 (two) times a day as needed for pain albuterol HFA (Proventil HFA) 90 mcg/actuation inhalerIndication s:Mild persistent asthma, unspecified whether complicated Inhale 2 puffs every 6 (six) hours as needed for wheezing or shortness of breath 6.7 g 3 06/13/2023 apixaban (ELIQUIS) 2.5 mg tabletIndications :Atrial fibrillation, chronic (CMS/HCC) (HCC) Take 1 tablet (2.5 mg total) by mouth 2 (two) times a day 60 tablet 03/08/2024 ascorbic acid, vitamin C, 250 mg tablet,chewable Take 250 mg by mouth 3 (three) times a week Take with the iron 325 mg to ensure absorption Monday 90 tablet 1 01/12/2024 atorvastatin (LIPITOR) 20 mg tablet Take 1 tablet (20 mg total) by mouth daily 30 tablet 11 04/11/2024 carbamide peroxide (DEBROX) 6.5 % otic solutionIndicatio ns:Impacted Cerumen Administer 5 drops into each ear as needed for ear pain (monday right ear, monday left ear) 30 mL 1 02/08/2024 5 cetirizine (ZyrTEC) 10 mg tabletIndications :Angioedema, subsequent encounter Take 1 tablet (10 mg total) by mouth nightly 90 tablet 3 12/08/2022 cholecalciferol (VITAMIN D-3) 2000 unit tablet Take 1 tablet (2,000 Units total) by mouth daily Ferrocite 324 mg (106 mg iron) tablet Take 324 mg by mouth 3 (three) times a day 01/12/2024 fluticasone propion-salmetero L (ADVAIR DISKUS) 100-50 mcg/dose diskus inhaler Inhale 1 puff 2 (two) times a day Rinse mouth with water after use. Do not swallow. furosemide (LASIX) 80 mg tablet Take 1 tablet (80 mg total) by mouth 2 (two) times a day gabapentin (NEURONTIN) 100 mg capsule Take 1 capsule (100 mg total) by mouth 3 (three) times a day 90 capsule 5 03/25/2024 5 metOLazone (ZAROXOLYN) 5 mg tablet Take 1 tablet (5 mg total) by mouth 2 (two) times a week 15 tablet 3 04/04/[address] (PROTONIX) 40 mg EC tabletIndications :Treatment of Non-Bleeding Gastric Disorder Take 1 tablet (40 mg total) by mouth daily 90 tablet 2 01/11/2024 polyethylene glycol (MIRALAX) 17 gram packetIndications :constipation Take 1 packet (17 g total) by mouth daily as needed for constipation propranoloL (INDERAL) 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 :Essential Tremor Take 1 tablet (20 mg total) by mouth 2 (two) times a day with breakfast and lunch spironolactone (ALDACTONE) 25 mg tablet Take 1 tablet (25 mg total) by mouth daily 30 tablet 11 07/26/2023 5 allopurinoL (ZYLOPRIM) 100 mg tabletIndications :Gouty arthritis of foot Take 2 tablets (200 mg total) by mouth daily 60 tablet 2 01/11/2024 4 empagliflozin (JARDIANCE) 10 mg tablet Take 1 tablet (10 mg total) by mouth daily 30 tablet 11 05/29/2023 4 pramipexole (MIRAPEX) 0.75 mg tabletIndications :Restless legs syndrome Take 1 tablet (0.75 mg total) by mouth 2 (two) times a day 60 tablet 3 01/28/2024 4 documented as of this encounter Ordered Prescriptions Prescription Sig Dispense Quantity Refills Last Filled Start Date End Date atorvastatin (LIPITOR) 20 mg tablet Take 1 tablet (20 mg total) by mouth daily 30 tablet 11 04/11/2024 04/11/2025 documented in this encounter Discharge Disposition Disposition Code Departure Means Destination Comment s Discharge to home or self care documented in this encounter H&P Notes * Lencho Thomson MD - 04/10/2024 10:06 PM CDT History and Physical Hospitalists services Date of service: Primary care provider: SUBJECTIVE Weight gain concern for fluid retention HPI: This is a 88 year old female with past medical history of CHF, DVT left arm, atrial fibrillation, GERD, hypertension, lymphedema and obesity admitting to general medicine for weight gain concern for fluid retention evaluation and management. Patient report that she gained about 4lb in one day with recent change of metolazone from daily to 2x per week, fluid restriction 1500cc daily. She got her labs done by pcp today and recommended to go ER due to concern of fluid overload. Also endorse cough and shortness of breath chronicly. That's why she went to ED for further evaluation. Patient noted that she feel ok, gain 4lb in one day. She did have shortness of breathing in the past but not today. She slept flat with one pillow. No leg swelling or orthopnea. Noted shortness of breath on exertion. Since she had a hip surgery. She has to use a walker to walk due to weak legs. Denies fever, chill, chest pain, abdominal pain, nausea, vomiting, diarrhea or dysuria. 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 HERNIA REPAIR Hernia repair KNEE ARTHROSCOPY 2003 Arthroscopy knee KNEE ARTHROSCOPY Arthroscopy knee OTHER SURGICAL HISTORY 1991 strangulated hernia: hernia repair OTHER SURGICAL HISTORY 2003 Cancer, basal Cell: resection with skin graft REPLACEMENT TOTAL KNEE Left 02/07/2017 Dr. Meier REPLACEMENT TOTAL KNEE Right TOTAL HIP ARTHROPLASTY Right 06/2019 The successful right hip replacement Dr. Mckenzie TOTAL HIP ARTHROPLASTY Left 11/01/2021 Dr. Mckenzie, [facility]. Medications Prior to Admission Medication Sig Dispense Refill Last Dose acetaminophen (TYLENOL) 500 mg tablet Take 2 [...] to ensure absorption Monday 90 tablet 1 carbamide peroxide (DEBROX) 6.5 % otic solution [...] total) by mouth daily 30 tablet 11 Allergies Allergen Reactions Celecoxib Anaphylaxis Scopolamine Mental status changes Delirium postop after joint replacement due to this medicine Sulfa (Sulfonamide Antibiotics) Anaphylaxis Amlodipine Swelling Lisinopril Swelling Trazodone Swelling Tongue Duloxetine Hcl Unknown Cipro [Ciprofloxacin Hcl] Vomiting Cymbalta [Duloxetine] Fatigue Sleepiness, tiredness possibly related to 20 mg morning dose of this medicine discontinued 11/30/2020 Sinemet [Carbidopa-Levodopa] Other (See comments) Night hines Social History Tobacco Use Smoking status: Former [...] not drink Frequency of Binge Drinking: Never Family History Problem Relation Age of Onset Cancer Other Family history of Cancer, unknown; Arthritis Other Family history of Arthritis; Abdominal Aortic Aneurysm Father COPD Father Review of Systems: 1. Constitutional Denies: fever, chills, night sweats, fatigue 2. Eyes Denies: change in vision, double vision, eye pain, eye discharge, icterus 3. ENT Denies: change in hearing, ear pain, ear discharge, nose bleed, nasal congestion, sore throat 4. Respiratory Denies: SOB, wheezing, cough, sputum, hemoptysis 5. CV Denies: chest pain, palpitations, syncope, edema, dyspnea 6. GI Denies: abdominal pain, decreased appetite, nausea, vomiting, change in bowel habitus, diarrhea, constipation, melena, BRBPR 7. Denies: dysuria, frequency, hematuria, nocturia, urgency 8. Metabolic Denies: cold intolerance, heat intolerance, polyphagia, polydipsia 9. Neurologic Denies: headache, dizziness, seizure, change in mental status, focal weakness, focal numbness 10. Musculoskeletal Denies: myalgia, joint pain, joint redness, joint swelling, extremity pain 11. Hematologic Denies: bleeding, bruising, hematoma, lymphadenopathy, icterus 12. Skin Denies open wounds, redness, new pigmentation, new change of color OBJECTIVE Vitals: Arrival Vitals Temp 04/10/24 1409 36.3 ??C (97.4 ??F) Pulse 04/10/24 1409 82 Resp 04/10/24 1409 18 BP 04/10/24 1409 136/97 SpO2 04/10/24 1409 99 % Temp src 04/10/24 1409 Temporal Heart Rate Source -- Patient Position -- BP Location 04/10/24 1840 Right arm FiO2 (%) -- 24hr Min/Max: Temp Min: 36.3 ??C (97.4 ??F) Max: 36.4 ??C (97.6 ??F) Pulse Min: 76 Max: 100 BP Min: 95/63 Max: 136/97 Resp Min: 18 Max: 23 SpO2 Min: 95 % Max: 100 % Most Recent : Vitals: 04/10/24 1840 BP: 95/63 Pulse: 100 Resp: 20 Temp: 36.4 ??C (97.6 ??F) SpO2: 95% Intake/Output Summary (Last 24 hours) at 04/10/20242205 Last data filed at 04/10/20242004 Gross per 24 hour Intake -- Output 150 ml Net -150 ml Physical exam: Eyes: EOMI, ESCOBAR, sclare non icteric Neck: supple, no nuchal ridigity, no gross carotid bruits appreciated ENT: No gross oral lesion, tongue midline, mucosa moist Respiratory: Lungs -CTA bilaterally, good inspiratory effort Cardiovascular: Heart sounds- [id number], no significant murmur or gallop GI: Abdomen-+BS, Non Tender, Non distended, No gross hepatomegaly Lower Ext: No gross edema, pedal artery pulses present bilaterally Neuro: good coordination, normal speech Musculoskeletal: no gross joint erythema, edema, tenderness Genitourinary: No New change Skin: No new change Psychiatric: Normal affect, good judgment Lab/Radiology/Diagnostic Review: Recent Results (from the past 24 hour(s)) Pro B-type natriuretic peptide Collection Time: 04/10/24 9:52 AM Result Value Ref Range NT-proBNP 6,298 (H) <=450 pg/mL Basic metabolic panel Collection Time: 04/10/24 9:52 AM Result Value Ref Range Sodium 133 (L) 135 - 145 mmol/L Potassium, pl 3.6 3.3 - 4.9 mmol/L Chloride 89 (L) 97 - 110 mmol/L CO2 33 (H) 22 - 32 mmol/L Anion gap 12 2 - 15 mmol/L BUN 76 (H) 6 - 25 mg/dL Creatinine 1.82 (H) 0.60 - 1.10 mg/dL Glucose 86 70 - 199 mg/dL Calcium 9.6 8.5 - 10.3 mg/dL eGFR Collection Time: 04/10/24 9:52 AM Result Value Ref Range eGFR 27 (L) >=60 mL/min/1.73 m2 CBC with auto differential Collection Time: 04/10/24 3:05 PM Result Value Ref Range WBC 9.7 3.8 - 9.9 K/cumm Hgb 12.2 11.9 - 15.5 g/dL Hct 38.6 35.6 - 45.5 % Plt 334 150 - 400 K/cumm MPV 9.0 (L) 9.1 - 12.3 fL RBC 4.40 3.90 - 5.20 M/cumm MCV 87.7 81.3 - 96.4 fL MCH 27.7 27.1 - 33.3 pg MCHC 31.6 (L) 32.3 - 35.7 g/dL RDW CV 15.8 (H) 11.1 - 14.9 % RDW SD 49.8 (H) 35.7 - 48.1 fL NRBC abs 0.00 0.00 - 0.01 K/cumm Comprehensive metabolic panel Collection Time: 04/10/24 3:05 PM Result Value Ref Range Sodium 134 (L) 135 - 145 mmol/L Potassium, pl 4.3 3.3 - 4.9 mmol/L Chloride 92 (L) 97 - 110 mmol/L CO2 33 (H) 22 - 32 mmol/L Anion gap 10 2 - 15 mmol/L BUN 74 (H) 6 - 25 mg/dL Creatinine 1.75 (H) 0.60 - 1.10 mg/dL Glucose 97 70 - 199 mg/dL Calcium 9.1 8.5 - 10.3 mg/dL Bilirubin, total 0.2 0.1 - 1.2 mg/dL Protein, pl 7.1 6.5 - 8.5 g/dL Albumin 3.6 3.5 - 5.0 g/dL Alk phos 109 40 - 130 Units/L ALT 9 7 - 45 Units/L AST 14 10 - 45 Units/L Pro B-type natriuretic peptide Collection Time: 04/10/24 3:05 PM Result Value Ref Range NT-proBNP 5,963 (H) <=450 pg/mL Troponin T high-sensitivity series (baseline, 2hr, 4hr, 6hr) Collection Time: 04/10/24 3:05 PM Result Value Ref Range Trop T hs 26 (H) <=14 ng/L Differential, auto Collection Time: 04/10/24 3:05 PM Result Value Ref Range Neutrophil abs 8.0 (H) 1.5 - 6.5 K/cumm Imm gran abs 0.1 0.0 - 0.1 K/cumm Lymphocyte abs 0.7 (L) 0.8 - 3.3 K/cumm Monocyte abs 0.6 0.2 - 0.8 K/cumm Eosinophil abs 0.3 0.0 - 0.5 K/cumm Basophil abs 0.1 0.0 - 0.1 K/cumm Neutrophil pct 82.3 % Imm gran pct 0.9 % Lymphocyte pct 7.0 % Monocyte pct 6.2 % Eosinophil pct 3.0 % Basophil pct 0.6 % eGFR Collection Time: 04/10/24 3:05 PM Result Value Ref Range eGFR 28 (L) >=60 mL/min/1.73 m2 Troponin T high-sensitivity 2-hour Collection Time: 04/10/24 5:29 PM Result Value Ref Range Trop T hs 23 (H) <=14 ng/L Trop T hs delta -3 ng/L Trop T hs interp Insignificant Troponin T high-sensitivity 4-hour Collection Time: 04/10/24 7:00 PM Result Value Ref Range Trop T hs 23 (H) <=14 ng/L Trop T hs delta -3 ng/L Trop T hs interp Insignificant Troponin T high-sensitivity 6-hour Collection Time: 04/10/24 9:04 PM Result Value Ref Range Trop T hs 23 (H) <=14 ng/L Trop T hs delta -3 ng/L Trop T hs interp Insignificant XR Chest 1 Vw Portable Result Date: 04/10/2024 Narrative: EXAM DESCRIPTION: XR CHEST 1 VIEW REASON FOR STUDY: Pain TECHNIQUE: Frontal radiographicview(s) of the chest. COMPARISON: 03/15/2024 FINDINGS: LUNGS: Mild bibasilar atelectasis and/or scarring. Slight scattered bilateral pulmonary parenchymal scarring. No focal pulmonary parenchymal consolidation, pleural effusion, or pneumothorax. HEART/MEDIASTINUM: Mild enlargement of the cardiac silhouette. Mildly tortuous thoracic aorta.. Mediastinal and hilar contours are otherwise normal. LINES/TUBES: None. BONES: No acute osseous abnormality. IMPRESSION: No acute cardiopulmonary abnormality. THIS IS AN ELECTRONICALLY VERIFIED FINAL REPORT 04/10/2024 5:48 PM - Electronically signed by Zoraida Parks M.D. AT: AT Report ID: [id number] Reading Location: [id number] ECG 12 lead Result Date: 04/10/2024 Narrative: Vent Rate: 68 bpm RR Interval: 872 msec IL Interval: 0 msec QRS Duration: 73 msec QT Interval: 397 msec QTC Interval: 415 msec P-R-T Anna: [id number] - 65 - 33 degrees IMPRESSION: ATRIAL FIBRILLATION LOW QRS VOLTAGE IN PRECORDIAL LEADS [QRS DEFLECTION < 1.0 mV IN CHEST LEADS] ABNORMAL RHYTHM ECG Electronically Signed By: US Vein Duplex Lower Extremity Bilateral Complete Result Date: 03/16/2024 Narrative: EXAMINATION: US VEIN DUPLEX LOWER EXTREMITY BILATERAL COMPLETE DATE: 03/16/2024 6:30 AM HISTORY: r/o dvt FINDINGS: Grayscale, color Doppler and spectral Doppler images were obtained. The right and left common femoral, superficial femoral, deep femoral, popliteal, posterior tibial and peroneal veins have normal and augmentation. Venous reflux is noted in the right superficial femoral andpopliteal veins. Otherwise, antegrade flow is noted bilaterally. Impression: No deep venous thrombosis in the lower extremities. Electronically signed by: Rom Hull M.D. CT Chest PE (CTA) W Contrast Result Date: 03/15/2024 Narrative: EXAMINATION: CT CHEST PE (CTA) W CONTRAST HISTORY: Suspected PE TECHNIQUE: Computed tomographic images were acquired using a chest angiographic protocol optimized for pulmonary embolism. Contrast enhanced transaxial images were obtained following the intravenous administration of 69 ml of nonionic contrast. Multiplanar reformatted images and three-dimensional images were obtained on the 3-D workstation and sent to the PACS archival system. COMPARISON: None Findings: No pulmonary embolus. No evidence of right heart strain. Mild atherosclerotic calcifications in the aorta and branch vessels. Thyroid and thoracic inlet structures are unremarkable. No mediastinal or hilar lymphadenopathy. Upper abdominal structures are unremarkable as seen. No acute osseous abnormality. No suspicious lytic or sclerotic lesions. Mild multilevel endplate changes in the visualized spine. No pneumothorax or pleural effusion. No pulmonary consolidation. Mild mosaic attenuation throughout the lung par enchyma bilaterally. Impression: 1. Diffuse mosaic attenuation suggestive of interstitial pulmonary edema versus reactive airways disease. 2. No pulmonary embolus. 3. Chronic findings as above. Electronically signed by: Jason Darling II, D.O. ECG 12 lead Result Date: 03/15/2024 Narrative: Vent Rate: 75 bpm RR Interval: 795 msec IL Interval: 0 msec QRS Duration: 70 msec QT Interval: 357 msec QTC Interval: 386 msec P-R-T Anna: 0 - 67 - 35 degrees IMPRESSION: ATRIAL FIBRILLATION LOW QRS VOLTAGE IN PRECORDIAL LEADS Electronically Signed By: Collin Rich MD, [facility] XR Chest 1 View Result Date: 03/15/2024 Narrative: EXAMINATION: XR CHEST 1 VIEW DATE: 03/15/2024 11:50 AM INDICATION: Pain. COMPARISON: 07/22/2023. Impression: FINDINGS/IMPRESSION: No pneumothorax or pleural effusion. Cardiomediastinal silhouette within normal limits. Mild pulmonary vascular congestion. No acute osseous abnormality. Electronically signed by: Jason Darling II, D.O. Current Facility-Administered Medications Medication Dose Route Frequency Provider Last Rate Last Admin acetaminophen (TYLENOL) tablet 650 mg 650 mg oral Q4H PRN Eri Chery, TEO ondansetron ODT (ZOFRAN-ODT) disintegrating tablet 4 mg 4 mg oral Q6H PRN Eri Chery PA Or ondansetron (ZOFRAN) injection 4 mg 4 mg intravenous Q6H PRN Eri Chery, TEO oxyCODONE (ROXICODONE) tablet 5 mg 5 mg oral Q4H PRN Eri Chery, PA A/P This is a 88 year old female with past medical history of CHF, DVT left arm, atrial fibrillation, GERD, hypertension, lymphedema and obesity admitting to general medicine for weight gain concern for fluid retention evaluation and management. Vitals afebrile T 36.3??, HR 73, RR 18, BP 130/61, on room air sat 92%. EKG per my interpretation noted AFib with HR 68, QTC 415: No acute ST change compared to previous, low voltage. Pro BNP 5963 previously 3035. Troponin 26, 23. Normal WBC 9.7, hemoglobin 12.2 WNL, PLT 334. Mild hyponatremia 134,normal potassium 4.3, creatinine 1.75 baseline 1.1- 1.8. Chest x-ray per my interpretation noted no pleural effusion, no pneumothorax, no opacity. Last echo was in 06/15/2023 noted EF 62%, diastolic dysfunction. In the ED, cardiology was consulted and recommended given 20 mg IV Lasix. Cardiology will see in the morning. Weight gain Hx of HF, DVT left arm, atrial fibrillation, Mild hyponatremia (most likely HF) Elevated pro BNP (5963 previously 3035) Elevated creatinine (creatinine 1.75 baseline 1.1- 1.8) Concern for fluid retention S/p 20mg IV lasix in the ED -Cardiology consult in the morning. Appreciate rec. Don't want to adjust diuresing since cardiologyhas been following closely outpatient. -TTE -monitor electrolytes -continue home medications. Hold meds that can cause worsening kdiney function: spironolactone. These fluid and electrolyte abnormalities are being treated, evaluated or monitored: Fluid overload-- diurese DVT prophylaxis eliquis Code status FULL CODE Anticipated length of stay to be 2 nights MDM moderate complexity Principal Problem: DANNY (acute kidney injury) (HCC) Resolved Problems: No resolved hospital problems. Voice recognition software [employer] was used dictate and transcribe this document. Supervisor Winter variances may occur. Despite proofreading, typographical errors may occur. Lencho Thomson MD Date of Service: 04/10/2024 documented in this encounter Consult Notes * Concetta Gupta DO - 04/11/2024 8:19 AM CDTAssociated Order(s): IP CONSULT TO CARDIOLOGY Cardiology Consultation note Admit date: 04/10/2024 Reason for Consultation: Acute CHF/ transition to outpatient care History of Present Illness: Tess Benedict is a 88 y.o. female PAD s/p 3 stents, CHF, DVT left arm, afib, GERD, HTN, and lymphedema. HFpEF with last echo in 2022 showing EF of 62%. Patient reports she weighs herself everyday and notice that she gained 4 lbs in 1 day which broughther in the ED. Currently denies any symptoms such as dizziness, SOB, or edema. Former smoker. 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 CHF (congestive heart failure) (CMS/HCC) (HCC) Cough DVT (deep venous thrombosis) (CMS/HCC) (HCC) 1976 upper left arm near elbow--- Fibrocystic [...] Surgical History: Procedure Laterality Date BARIATRIC SURGERY 1984 gastroplasty BREAST BIOPSY 1994 Breast biopsy CHOLECYSTECTOMY 1992 Cholecystectomy [place] FLUORO GUIDED INJECTION HIP LEFT Left 01/28/2021 FLUORO GUIDED INJECTION HIP RIGHT Right 04/08/2019 HAND SURGERY 1976 arm surgery on the left, they removed [...] TOTAL HIP ARTHROPLASTY Left 11/01/2021 Dr. Mckenzie, [facility]. Allergies Allergen Reactions Celecoxib Anaphylaxis Scopolamine Mental status changes Delirium postop after joint replacement due to this medicine Sulfa (Sulfonamide Antibiotics) Anaphylaxis Amlodipine Swelling Lisinopril Swelling Trazodone Swelling Tongue Duloxetine Hcl Unknown Cipro [Ciprofloxacin Hcl] Vomiting Cymbalta [Duloxetine] Fatigue Sleepiness, tiredness possibly related to 20 mg morning dose of this medicine discontinued 11/30/2020 Sinemet [Carbidopa-Levodopa] Other (See comments) Night hines Social History Tobacco Use Smoking status: Former [...] not drink Frequency of Binge Drinking: Never Family History Problem Relation Age of Onset Cancer Other Family history of Cancer, unknown; Arthritis Other Family history of Arthritis; Abdominal Aortic Aneurysm Father COPD Father Review of Systems: Constitutional: Negative for fever, chills, malaise/fatigue, and diaphoresis. Psychiatric: Negative for depression and anxiety. Skin: Negative for rash and itching. HENT: Negative for headaches, lightheadedness, and congestion. Negative for vertigo. Eyes: Negative for blurred vision and itching. Cardiovascular: Negative for chest pain, Negative for palpitations and syncope. Respiratory: Negative for cough and sputum production. Negative for shortness of breath. Gastrointestinal: Negative for nausea, vomiting, abdominal pain and diarrhea. Musculoskeletal: Negative for muscle weakness, extremity redness or swelling. Neurological: Negative for dizziness, focal weakness, tremors, and loss of consciousness. Patient Vitals for the past 24 hrs: BP Temp Temp src Pulse Resp SpO2 Height Weight 04/11/24 0400 -- -- -- 76 -- 90 % -- -- 04/11/24 0200 -- -- -- 90 -- 99 % -- -- 04/11/24 0000 -- -- -- 80 -- 98 % -- -- 04/10/24 2256 130/61 36.3 ??C (97.4 ??F) Temporal 73 18 92 % -- -- 04/10/240 -- -- -- 83 -- 98 % -- -- 04/10/241999 -- -- -- 93 -- 98 % -- -- 04/10/24 1840 95/63 36.4 ??C (97.6 ??F) Temporal 100 20 95 % 152.4 cm (5') 82.3 kg (181 lb 8 oz) 04/10/24 1800 119/70 -- -- 83 19 97 % -- -- 04/10/24 1730 115/74 -- -- 76 23 100 % -- -- 04/10/24 1409 136/97 36.3 ??C (97.4 ??F) Temporal 82 18 99 % 152.4 cm (5') 80.3 kg (177 lb) Intake/Output Summary (Last 24 hours) at 04/11/2024 0819 Last data filed at 04/11/2024 0621 Gross per 24 hour Intake 540 ml Output 900 ml Net -360 ml Wt Readings from Last 3 Encounters: 04/10/24 82.3 kg (181 lb 8 oz) 04/01/24 79.8 kg (176 lb) 03/25/24 80 kg (176 lb 6.4 oz) Cardiac Rhythm: Atrial fibrillation (04/11/24 0400) Physical Exam: General: Well developed, well nourished, in no acute distress, oriented to person, place, and time. Skin: Warm and dry Head: Normocephalic, oral mucosa and conjunctivae normal Neck: No thyromegaly or bruits. Lungs: Clear to auscultation. Respirations unlabored Cardiac: Irregularly, irregular no murmur, no gallop or rub Abd: Soft, nontender, BS active Extremities: No edema. Neurologic: Oriented to person, place, and time. Mood not depressed. Prior to Admission medications Medication Sig Start Date End Date Taking? Authorizing Provider acetaminophen (TYLENOL) 500 mg tablet Take 2 tablets (1,000 mg total) by mouth 2 (two) times a day as needed for pain Yes Latasha Flannery MD albuterol HFA (Proventil HFA) 90 mcg/actuation inhaler Inhale 2 puffs every 6 (six) hours as neededfor wheezing or shortness of breath 06/13/23 Yes Sabine Dasilva NP allopurinoL (ZYLOPRIM) 100 mg tablet Take 2 tablets (200 mg total) by mouth daily 01/11/24 Yes Pepper Morgan MD apixaban (ELIQUIS) 2.5 mg tablet Take 1 tablet (2.5 mg total) by mouth 2 (two) times a day 03/08/24 Yes Pepper Morgan MD cetirizine (ZyrTEC) 10 mg tablet Take 1 tablet (10 mg total) by mouth nightly 12/08/22 Yes Pepper Morgan MD cholecalciferol (VITAMIN D-3) 2000 unit tablet Take 1 tablet (2,000 Units total) by mouth daily YesProLatasha hoffman MD empagliflozin (JARDIANCE) 10 mg tablet Take 1 tablet (10 mg total) by mouth daily 05/29/23 Yes Stalin Arauz MD fluticasone propion-salmeteroL (ADVAIR DISKUS) 100-50 mcg/dose diskus inhaler Inhale 1 puff 2 (two)times a day Rinse mouth with water after use. Do not swallow. Yes Latasha Flannery MD furosemide (LASIX) 80 mg tablet Take 1 tablet (80 mg total) by mouth 2 (two) times a day Yes Latasha Flannery MD gabapentin (NEURONTIN) 100 mg capsule Take 1 capsule (100 mg total) by mouth 3 (three) times a day 03/25/24 09/21/24 Yes Klaus Deshpande MD pantoprazole DR (PROTONIX) 40 mg EC tablet Take 1 tablet (40 mg total) by mouth daily 01/11/24 Yes Pepper Morgan MD polyethylene glycol (MIRALAX) 17 gram packet Take 1 packet (17 g total) by mouth daily as needed for constipation Yes Latasha Flannery MD pramipexole (MIRAPEX) 0.75 mg tablet Take 1 tablet (0.75 mg total) by mouth 2 (two) times a day 01/28/24 Yes Klaus Deshpande MD propranoloL (INDERAL) 20 mg tablet Take 1 tablet (20 mg total) by mouth 2 (two) times a day with breakfast and lunch Yes Latasha Flannery MD spironolactone (ALDACTONE) 25 mg tablet Take 1 tablet (25 mg total) by mouth daily 07/26/23 07/25/24 Yes Elizabeth Villarreal MD ascorbic acid, vitamin C, 250 mg tablet,chewable Take 250 mg by mouth 3 (three) times a week Take with the iron 325 mg to ensure absorption Monday01/12/24 Pepper Morgan MD carbamide peroxide (DEBROX) 6.5 % otic solution Administer 5 drops into each ear as needed for ear pain (monday right ear, monday left ear) 02/08/24 02/07/25 Pepper Morgan MD Ferrocite 324 mg (106 mg iron) tablet Take 324 mg by mouth 3 (three) times a day 01/12/24 ProviderLatasha MD metOLazone (ZAROXOLYN) 5 mg tablet Take 1 tablet (5 mg total) by mouth 2 (two) times a week 04/04/24 Stalin Arauz MD cyclobenzaprine (FLEXERIL) 10 mg tablet Take 1 tablet (10 mg total) by mouth nightly as needed for muscle spasms 11/16/21 12/06/21 Puma Johnson MD Recent Labs Lab Units 04/11/24 0504/10/24 1505 04/10/24 0952 SODIUM mmol/L 130* 134* 133* POTASSIUM PLASMA mmol/L 3.6 4.3 3.6 CHLORIDE mmol/L 92* 92* 89* CO2 mmol/L 26 33* 33* BUN SERUM mg/dL 68* 74* 76* CREATININE mg/dL 1.39* 1.75* 1.82* SRL-XOD-ZUNAWOH mL/min/1.73 m2 37* 28* 27* GLUCOSE mg/dL 79 97 86 CALCIUM mg/dL 8.7 9.1 9.6 ALBUMIN g/dL 2.8* 3.6 -- Recent Labs Lab Units 04/11/24 0522 04/10/24 1505 ALK PHOS Units/L 98 109 BILIRUBIN TOTAL mg/dL 0.3 0.2 TOTAL PROTEIN g/dL 6.1* 7.1 ALT Units/L 7 9 AST Units/L 12 14 Recent Labs Lab Units 04/11/24 0522 04/10/24 1505 WBC K/cumm 9.1 9.7 HEMOGLOBIN g/dL 11.2* 12.2 HEMATOCRIT % 34.6* 38.6 PLATELETS K/cumm 298 334 Lab Results Component Value Date TSH 3.48 07/18/2023 FREET4 1.30 07/18/2023 Lab Results Component Value Date CHOL 128 07/22/2023 TRIG 96 07/22/2023 HDL 45 07/22/2023 LDLCALC 64 07/22/2023 Radiology Testing: No results found. Cardiac Testing: Echocardiogram: 06/15/2023 CONCLUSIONS: Technically difficult study with limited views. Normal [...] by planimetry 1.7 cm2. No aortic regurgitation. Cardiac cath: N/A EK04/10/24 IMPRESSION: ATRIAL FIBRILLATION LOW QRS VOLTAGE IN PRECORDIAL LEADS [QRS DEFLECTION < 1.0 mV IN CHEST LEADS] ABNORMAL RHYTHM ECG CXR: 04/10/2024 IMPRESSION: No acute cardiopulmonary abnormality. Holter monitor 08/23/2023 CONCLUSIONS: 1. 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 Average heart rate of 84 beats per minute.Total monitoring time of 48 hours. 2. Heart rate and rate variability is appropriate. 3. No prolonged pauses. 4. Rare PVCs with 90 PVCs corresponding to less than 1% total beats.Many of these so-called PVCs could be due to Billy phenomena or aberrant conduction. 5. The patient recorded no symptoms during the study. Impression: HFpEF - Does not appear fluid overloaded on exam. Asymptomatic. Chest xray is clear. Only mild weight gain. BNP is elevated but appears chronically elevated. Not convinced in acute HF. TTE pending. Stable for discharge from a cardiology standpoint. Afib PAD s/p 3 stents HTN Plan: TTE today. Recheck of lipid panel shows LDL 97. Recommend starting Lipitor 20 mg daily. Continue home medications of Eliquis 2.5 mg BID, Propranolol 20 mg BID, Lasix 80 mg BID, Metolazone5 mg x2 weekly can use prn if fluid retaining, jardiance 10 mg daily, and aldactone 25 mg daily. Recommend referral to Dr. Guillen, Nephrology for CKD. Check BMP periodically as well. Follow up with Kerry Harris NP on 05/03/2024 Cardiology will sign off. Thank you for the consultation, if I may be of any further help, please do not hesitate to contact, Concetta Gupta DO CC: Pepper Morgan MD Kim, Eileen H., MD Cosigned by Saud Ayers MD at 04/11/2024 1:20 PM CDT Associated attestation - Saud Ayers MD - 04/11/2024 1:20 PM CDT I have seen and examined the patient on 04/11/24. I agree with the findings and plan of care as documented in the resident's/fellow's note.. documented in this encounter Nursing Notes * Katarzyna Vizcarra RN - 04/11/2024 1:50 PM CDT Patient discharged to home via private vehicle accompanied by daughter. Discharge instructions reviewed with patient and/or rental sales representative. Mobile pharmacy medications and/or prescriptions provided. Belongings/home medications returned. documented in this encounter ED Notes * Eri Chery PA - 04/10/2024 4:29 PM CDT CHIEF COMPLAINT: Chief Complaint Patient presents with Abnormal Lab HPI 5:46 PM Tess Benedict is a 88 y.o. female w/ PMH of CHF presenting to the ED c/o concerns for fluid on her chest, gaining 4lbs this morning, and a recent change to her diuretics. She had labs done earlier today and was told by her PCP that her labs indicate that she has fluid on her chest and told her to come to the ER. She has a cough and SOB at baseline, but denies any changes to these sx's. She denies CP, orthopnea, dyspnea on exertion, abd pain, leg pain or swelling, fever, chills, or any other concerns. She recently had a change in her diuretics stating this last week they changed her metolazone from every other day to twice a week. She says that she follows her fluid restrictions and drinks up to 6 8oz cups per day. History provided by patient PCP: Pepper Morgan MD PAST MEDICAL HISTORY 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 CHF (congestive heart failure) (CMS/HCC) (HCC) Cough DVT (deep venous thrombosis) (CMS/HCC) ([facility]) 1976 upper left arm near elbow--- Fibrocystic [...] Cell Tobacco use 1-2ppd x 35yrs quit PAST SURGICAL HISTORY Past Surgical History: Procedure Laterality Date BARIATRIC [...] TOTAL HIP ARTHROPLASTY Left 11/01/2021 Dr. Mckenzie, [facility]. FAMILY HISTORY Family History Problem Relation Age of Onset Cancer Other Family history of Cancer, unknown; Arthritis Other Family history of Arthritis; Abdominal Aortic Aneurysm Father COPD Father MEDICATIONS GIVEN IN THE ED Medications furosemide (LASIX) 10 mg/mL injection 20 mg (20 mg intravenous Given 04/10/241744) CURRENT HOME MEDICATIONS No current facility-administered medications for this encounter. Current Outpatient Medications: acetaminophen (TYLENOL) 500 mg tablet, Take 2 tablets (1,000 mg total) by mouth 2 (two) times a dayas needed for pain, Disp: , Rfl: albuterol HFA (Proventil HFA) 90 mcg/actuation inhaler, Inhale 2 puffs every 6 (six) hours as needed for wheezing or shortness of breath, Disp: 6.7 g, Rfl: 3 allopurinoL (ZYLOPRIM) 100 mg tablet, Take 2 tablets (200 mg total) by mouth daily, Disp: 60 tablet, Rfl: 2 apixaban (ELIQUIS) 2.5 mg tablet, Take 1 tablet (2.5 mg total) by mouth 2 (two) times a day, Disp: 60 tablet, Rfl: 0 ascorbic acid, vitamin C, 250 mg tablet,chewable, Take 250 mg by mouth 3 (three) times a week Take with the iron 325 mg to ensure absorption Monday, Disp: 90 tablet, Rfl: 1 carbamide peroxide (DEBROX) 6.5 % otic solution, Administer 5 drops into each ear as needed for earpain (monday right ear, monday left ear), Disp: 30 mL, Rfl: 1 cetirizine (ZyrTEC) 10 mg tablet, Take 1 tablet (10 mg total) by mouth nightly, Disp: 90 tablet, Rfl: 3 cholecalciferol (VITAMIN D-3) 2000 unit tablet, Take 1 tablet (2,000 Units total) by mouth daily, Disp: , Rfl: empagliflozin (JARDIANCE) 10 mg tablet, Take 1 tablet (10 mg total) by mouth daily, Disp: 30 tablet, Rfl: 11 Ferrocite 324 mg (106 mg iron) tablet, Take 324 mg by mouth 3 (three) times a day, Disp: , Rfl: fluticasone propion-salmeteroL (ADVAIR DISKUS) 100-50 mcg/dose diskus inhaler, Inhale 1 puff 2 (two) times a day Rinse mouth with water after use. Do not swallow., Disp: , Rfl: furosemide (LASIX) 80 mg tablet, Take 1 tablet (80 mg total) by mouth 2 (two) times a day, Disp: , Rfl: gabapentin (NEURONTIN) 100 mg capsule, Take 1 capsule (100 mg total) by mouth 3 (three) times a day, Disp: 90 capsule, Rfl: 5 metOLazone (ZAROXOLYN) 5 mg tablet, Take 1 tablet (5 mg total) by mouth 2 (two) times a week, Disp:15 tablet, Rfl: [address] (PROTONIX) 40 mg EC tablet, Take 1 tablet (40 mg total) by mouth daily, Disp: 90 tablet, Rfl: 2 polyethylene glycol (MIRALAX) 17 gram packet, Take 1 packet (17 g total) by mouth daily as needed for constipation, Disp: , Rfl: pramipexole (MIRAPEX) 0.75 mg tablet, Take 1 tablet (0.75 mg total) by mouth 2 (two) times a day, Disp: 60 tablet, Rfl: 3 propranoloL (INDERAL) 20 mg tablet, Take 1 tablet (20 mg total) by mouth 2 (two) times a day with breakfast and lunch, Disp: , Rfl: spironolactone (ALDACTONE) 25 mg tablet, Take 1 tablet (25 mg total) by mouth daily, Disp: 30 tablet, Rfl: 11 ALLERGIES Allergies Allergen Reactions Celecoxib Anaphylaxis Scopolamine Mental status changes Delirium postop after joint replacement due to this medicine Sulfa (Sulfonamide Antibiotics) Anaphylaxis Amlodipine Swelling Lisinopril Swelling Trazodone Swelling Tongue Duloxetine Hcl Unknown Cipro [Ciprofloxacin Hcl] Vomiting Cymbalta [Duloxetine] Fatigue Sleepiness, tiredness possibly related to 20 mg morning dose of this medicine discontinued 11/30/2020 Sinemet [Carbidopa-Levodopa] Other (See comments) Night hines SOCIAL HISTORY Social History Tobacco Use Smoking status: Former Current packs/day: 0.00 Average packs/day: 2.0 packs/day for 30.0 years (60.0 ttl pk-yrs) Types: Cigarettes Start date: 1951 Quit date: 1982 Years since quittin.8 Smokeless tobacco: Never Substance and Sexual Activity Drug use: Never Sexual activity: Defer Alcohol Use: Not At Risk (12/28/2022) AUDIT-C Frequency of Alcohol Consumption: Monthly or less Average Number of Drinks: 1 or 2 Frequency of Binge Drinking: Never PHYSICAL EXAM TRIAGE VITAL SIGNS: ED Triage Vitals [04/10/24 1409] Temp Pulse Resp BP SpO2 36.3 ??C (97.4 ??F) 82 18 136/97 99 % Temp src Heart Rate Source Patient Position BP Location FiO2 (%) Temporal -- -- -- -- Height Height Method Weight Weight Method 1.524 m (5') Stated 80.3 kg (177 lb) Stated Physical Exam Constitutional: Appearance: She is not ill-appearing or diaphoretic. HENT: Head: Normocephalic. Mouth/Throat: Mouth: Mucous membranes are moist. Pharynx: Oropharynx is clear. Eyes: Conjunctiva/sclera: Conjunctivae normal. Cardiovascular: Rate and Rhythm: Normal rate. Pulses: Normal pulses. Heart sounds: Normal heart sounds. No murmur heard. Pulmonary: Effort: Pulmonary effort is normal. No respiratory distress. Breath sounds: Normal breath sounds. No wheezing or rales. Chest: Chest wall: No tenderness. Abdominal: Palpations: Abdomen is soft. Tenderness: There is no abdominal tenderness. Musculoskeletal: Right lower leg: No edema. Left lower leg: No edema. Skin: General: Skin is warm and dry. Neurological: Mental Status: She is alert. LABS Labs Reviewed CBC WITH AUTO DIFFERENTIAL - Abnormal Result Value WBC 9.7 Hgb 12.2 Hct 38.6 Plt 334 MPV 9.0 (*) RBC 4.40 MCV 87.7 MCH 27.7 MCHC 31.6 (*) RDW CV 15.8 (*) RDW SD 49.8 (*) NRBC abs 0.00 COMPREHENSIVE METABOLIC PANEL - Abnormal Sodium 134 (*) Potassium, pl 4.3 Chloride 92 (*) CO2 33 (*) Anion gap 10 BUN 74 (*) Creatinine 1.75 (*) Glucose 97 Calcium 9.1 Bilirubin, total 0.2 Protein, pl 7.1 Albumin 3.6 Alk phos 109 ALT 9 AST 14 PRO B-TYPE NATRIURETIC PEPTIDE - Abnormal NT-proBNP 5,963 (*) TROPONIN T HIGH-SENSITIVITY SERIES (BASELINE, 2HR, 4HR, 6HR) - Abnormal Trop T hs 26 (*) DIFFERENTIAL AUTO - Abnormal Neutrophil abs 8.0 (*) Imm gran abs 0.1 Lymphocyte abs 0.7 (*) Monocyte abs 0.6 Eosinophil abs 0.3 Basophil abs 0.1 Neutrophil pct 82.3 Imm gran pct 0.9 Lymphocyte pct 7.0 Monocyte pct 6.2 Eosinophil pct 3.0 Basophil pct 0.6 EGFR - Abnormal eGFR 28 (*) TROPONIN T HIGH-SENSITIVITY 2-HOUR TROPONIN T HIGH-SENSITIVITY 4-HR TROPONIN T HIGH-SENSITIVITY 6-HOUR RADIOLOGY ECG 12 lead Result Date: 04/10/2024 Narrative: Vent Rate: 68 bpm RR Interval: 872 msec IL Interval: 0 msec QRS Duration: 73 msec QT Interval: 397 msec QTC Interval: 415 msec P-R-T Anna: [id number] - 65 - 33 degrees IMPRESSION: ATRIAL FIBRILLATION LOW QRS VOLTAGE IN PRECORDIAL LEADS [QRS DEFLECTION < 1.0 mV IN CHEST LEADS] ABNORMAL RHYTHM ECG Electronically Signed By: US Vein Duplex Lower Extremity Bilateral Complete Result Date: 03/16/2024 Narrative: EXAMINATION: US VEIN DUPLEX LOWER EXTREMITY BILATERAL COMPLETE DATE: 03/16/2024 6:30 AM HISTORY: r/o dvt FINDINGS: Grayscale, color Doppler and spectral Doppler images were obtained. The right and left common femoral, superficial femoral, deep femoral, popliteal, posterior tibial and peroneal veins have normal and augmentation. Venous reflux is noted in the right superficial femoral andpopliteal veins. Otherwise, antegrade flow is noted bilaterally. Impression: No deep venous thrombosis in the lower extremities. Electronically signed by: Rom Hull M.D. CT Chest PE (CTA) W Contrast Result Date: 03/15/2024 Narrative: EXAMINATION: CT CHEST PE (CTA) W CONTRAST HISTORY: Suspected PE TECHNIQUE: Computed tomographic images were acquired using a chest angiographic protocol optimized for pulmonary embolism. Contrast enhanced transaxial images were obtained following the intravenous administration of 69 ml of nonionic contrast. Multiplanar reformatted images and three-dimensional images were obtained on the 3-D workstation and sent to the PACS archival system. COMPARISON: None Findings: No pulmonary embolus. No evidence of right heart strain. Mild atherosclerotic calcifications in the aorta and branch vessels. Thyroid and thoracic inlet structures are unremarkable. No mediastinal or hilar lymphadenopathy. Upper abdominal structures are unremarkable as seen. No acute osseous abnormality. No suspicious lytic or sclerotic lesions. Mild multilevel endplate changes in the visualized spine. No pneumothorax or pleural effusion. No pulmonary consolidation. Mild mosaic attenuation throughout the lung par enchyma bilaterally. Impression: 1. Diffuse mosaic attenuation suggestive of interstitial pulmonary edema versus reactive airways disease. 2. No pulmonary embolus. 3. Chronic findings as above. Electronically signed by: Jason Darling II, D.O. ECG 12 lead Result Date: 03/15/2024 Narrative: Vent Rate: 75 bpm RR Interval: 795 msec IL Interval: 0 msec QRS Duration: 70 msec QT Interval: 357 msec QTC Interval: 386 msec P-R-T Anna: 0 - 67 - 35 degrees IMPRESSION: ATRIAL FIBRILLATION LOW QRS VOLTAGE IN PRECORDIAL LEADS Electronically Signed By: Collin Rich MD, [facility] XR Chest 1 View Result Date: 03/15/2024 Narrative: EXAMINATION: XR CHEST 1 VIEW DATE: 03/15/2024 11:50 AM INDICATION: Pain. COMPARISON: 07/22/2023. Impression: FINDINGS/IMPRESSION: No pneumothorax or pleural effusion. Cardiomediastinal silhouette within normal limits. Mild pulmonary vascular congestion. No acute osseous abnormality. Electronically signed by: Jason Darling II, D.O. ED COURSE/MEDICAL DECISION MAKING Differential diagnosis included but not limited to CHF, DANNY, pneumonia, dehydration Patient accepted for admission by the hospitalist with cardiology on consult. Patient is agreeable. Patient's medical records were reviewed. ED Course as of 04/10/24 1746 Time: 04/10 1611 Value: Creatinine(!): 1.75 Comment: (Reviewed) By: Eri Chery PA Time: 04/10 161 Value: NT-proBNP(!): 5,963 Comment: (Reviewed) By: Eri Chery PA Time: 04/10 1741 Comment: Discussed case with cardiology Jerry COHEN who recommends giving the patient 20 of Lasix. They will see her in consult By: Eri Chery PA Time: 04/10 1742 Comment: Discussed case with hospitalist Dr. Parish who accepted patient for admisson By: Eri Chery PA Procedures FINAL IMPRESSION DANNY (acute kidney injury) (HCC) Acute on chronic congestive heart failure, unspecified heart failure type (HCC) DISPOSITION: Admit This examination was transcribed using the [employer] computerized voice recognition system without human cupola tapper. In an effort to expedite patient care, this report has not been adjusted for typographical, grammatical, and syntax by a trained medical services coordinator. Eri Chery PA 04/10/241745 Cosigned by Juan Lang MD at 04/10/2024 7:58 PM CDT * Rufina Bowens RN - 04/10/2024 2:07 PM CDT Pt ambulatory to triage with c/o abnormal lab. Pt states she had blood work done AM and was called by her PCP and told she has fluid on her heart and she needs to get to the ED. Hx CHF documented in this encounter Miscellaneous Notes * Initial Assessments - Yenifer Sorensen LCSW - 04/11/2024 12:04 PM CDT Social Work Assessment Clinical Dx: DANNY (acute kidney injury) (HCC) Past Medical History: Date of last inpatient admission: Previous admit date: 03/15/2024 Number of inpatient admissions in past year: 4 Reason for Current Hospitalization (Pt/Caregiver Stated): Fluid (04/11/24 111) Patient Information: Information Obtained From: Patient Marital Status: Does Pt have Legal Guardian, Surrogate Decision Maker or Healthcare Agent? 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 Education Level : High School Diploma How do you Pay for Medication: Insurance. Current Transportation: Own vehicle, Family/friends (Pt still drives but family can transport as needed.) (04/11/24 111) Legal History: Legal History Legal Information : No legal issues (04/11/24 111) Support Systems and Spirituality: Support Systems and Spirituality Support System: Children, Other family members, Friends/neighbors Children Name/Contact Information: Daughter/Florinda Baires [phone] cell; Son/Franky Nigeljaylene [phone] cell; Son/Jason Marichuy [phone] cell Other Family Member Name/Contact Information: Pt's sister/Hyun Eagle [phone] cell Friends/Neighbors Name/Contact Information: Has a large group of friends she plays cards with regularly but did not provide names or contact information. Participation from Patient's Support System: Yes. Support Contact Name/Number: Bee/Florinda Baires [phone] Family Perspective: Supportive. Do you have a Confucianism Preference or Affiliation?: Yes Preference/Affiliation : Mandaeism. Are there any Confucianism Practices that are important to maintain while admitted?: Yes Confucianism Practice: Typical [place] Restoration holidays. Do you have Cultural Factors that are important to you?: No Description of Childhood: Good. History of physical abuse? : No History of physically abusing others? : No History of sexual abuse?: No History of sexually abusing others? : No History of Mental/Emotional Abuse? : No (04/11/24 1119) Strengths, Assets, Liabilities and Stressors: Strengths, Assets, Liabilities, and Stressors Strengths (Must Choose Two): Vocational interests, i.e., hobbies, Access to housing/residential stability, Financial stability, Interpersonal relationships and supports,i.e., family, friends, peers, Knowledge of medications, Managing surrounding demands and opportunities, Motivation and readiness for change Patient Assets: Access to services, MD, Supportive family, Supportive friends, Home, Income, Transportation, Insured, Use of Supports Hope and Strength during Difficult Times: Prayer, I guess. Does Pt have access to Employee Assistance Program: No Patient Barriers : Poor physical health Current Stressors: Chronic illness (04/11/24 1119) SDOH Transportation Needs: No Transportation Needs (04/11/2024) PRAPARE - Transportation Lack of Transportation (Medical): No Lack of Transportation (Non-Medical): No Financial Resource Strain: Low Risk (04/11/2024) Overall Financial Resource Strain (CARDIA) Difficulty of Paying Living Expenses: Not very hard Housing Stability: Low Risk (04/11/2024) Housing Stability Vital Sign Unable to Pay for Housing in the Last Year: No Number of Times Moved in the Last Year: 0 Homeless in the Last Year: No Social Connections: Socially Isolated (04/11/2024) Social Connection and Isolation Panel [NHANES] Frequency of Communication with Friends and Family: More than three times a week Frequency of Social Gatherings with Friends and Family: More than three times a week Attends Confucianism Services: Never Active Member of Clubs or Organizations: No Attends Club or Organization Meetings: Never Marital Status: Food Insecurity: No Food Insecurity (04/11/2024) Hunger Vital Sign Worried About Running Out of Food in the Last Year: Never true Ran Out of Food in the Last Year: Never true Tobacco Use: Medium Risk (04/10/2024) Patient History Smoking Tobacco Use: Former Smokeless Tobacco Use: Never Passive Exposure: Not on file Alcohol Use: Not At Risk (04/10/2024) AUDIT-C Frequency of Alcohol Consumption: Never Average Number of Drinks: Patient does not drink Frequency of Binge Drinking: Never PHQ Screening Current/Former Smokers - Passive Exposure Questions Responses Current/Former Smoker - passive exposure (e.g., household member smoking)? Yes E-Cigarette/Vaping Questions Responses E-cigarette/Vaping Use Never User Substance Abuse, Mental Health, and Trauma History: Chemical Dependency, Mental Health & Trauma History Chemical Dependency: Denied. No known history. Mental Health: Denied. No known history. (04/11/24 111) Risk to Self and Others: Risk to Self and Others Violence risk to self in past 6 months? : No Self Harm/Suicidal Ideation Plan: No Previous Self Harm/Suicidal Attempts: No Violence risk to others in past 6 months? : No Any lifetime risk of violence to others? : No Current Plans to Harm Another: No Previous Plans to Harm Another: Denied. (04/11/24 111) Impressions and Recommendations: Pt appears to be a very active 88 year old woman with a large group of supportive friends and family. She socializes with others weekly including regular card playinggroups, where they play the game Hand and Foot. She continues to drive and this allows her more freedom to visit others in the community which keeps her more physically and psychologically healthy. 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 She is a mother of 3 and grandmother of 12. She does have chronic health problems including CHF, prediabetes, and CKD, stage 3b. Those illnesses, combined with her advanced age, make her more likely to have medical issues resulting in more frequent hospitalization. Pt's affect and mood were congruent during the interview. She appeared to be happy, frequently smiling, and was cooperative with questioning. Pt didexpress the desire to be discharged as soon as possible because she has other things she wants to do, which appears to be par for the course with her, as she is very social. She wants to go get back to visiting with her friends. * Plan of Care - Katy Munoz RN - 04/11/2024 3:35 AM CDT Problem: Discharge Planning Goal: Understanding discharge needs will improve Outcome: Ongoing Flowsheets (Taken 04/10/20242139) Understanding of discharge needs will improve: Identify discharge learning needs (meds, wound care,etc.) Problem: Fall Risk Goal: Ability to state ways to decrease the risk of falls will improve Outcome: Ongoing Flowsheets (Taken 04/10/20242139) Ability to state ways to decrease the risk of falls will improve: Teach fall prevention measures Goal: Will remain free from falls Outcome: Ongoing Flowsheets (Taken 04/10/20242139) Will remain free from falls: Assess risk factors for falls Implement fall prevention measures Goal: Will remain free from injury from falls Outcome: Ongoing Flowsheets (Taken 04/10/20242139) Will remain free from injury from falls: Provide safe environment for conduction of activities of daily living in hospital environment Problem: Respiratory Goal: Achieves optimal ventilation and oxygenation Outcome: Ongoing Flowsheets (Taken 04/10/20242139) Achieves optimal ventilation and oxygenation: Assess for changes in respiratory status Problem: Cardiovascular Goal: Absence of cardiac dysrhythmias or at baseline Outcome: Ongoing Flowsheets (Taken 04/10/20242139) Absence of cardiac dysrhythmias or at baseline: Continuous cardiac monitoring, monitor vital signs,obtain 12 lead EKG if indicated Problem: Skin/Tissue Integrity Goal: Skin integrity remains intact Outcome: Ongoing Flowsheets (Taken 04/10/20242139) Skin integrity remains intact: Assess and document risk factors for pressure injury development Problem: Musculoskeletal Goal: Return mobility to safest level of function Outcome: Ongoing Flowsheets (Taken 04/10/20242139) Return mobility to safest level of function: Assess patient stability and activity tolerance for standing, transferring and ambulating with or without assistive devices Assist with transfers and ambulation using safe patient handling equipment as needed Goal: Return ADL status to a safe level of function Outcome: Ongoing Flowsheets (Taken 04/10/20242139) Return activities of daily living status to a safe level of function: Assess patient's activities of daily living deficits and provide assistive devices as needed Goals: Clinical Goals for the Shift: VSS, pain management, increased urinary output, no falls/injuries Summary: Pt a/ox4 with stable VS and up SBA with walker, tolerates fairly well. Pt given and educated on medications. C/o pain, given PRN tylenol. Pt requesting something for sleep, notified, new order placed and rozerem given. Pt urinating frequently, output measured. Pt resting in bed, call light in reach, bed in lowest position, bed alarm active. documented in this encounter Plan of Treatment Scheduled Referrals Name Type Priority Associated Diagnoses Order Schedule Ambulatory referral to Nephrology Outpatient Referral Routine CKD stage 3b, GFR 30-44 ml/min (HCC) Expected: 04/25/2024 (Approximate), Expires: 04/11/2025 documented as of this encounter Goals Goal [...] Procedure Name Priority Date/Time Associated Diagnosis Comments TRANSTHORACIC ECHO (TTE) COMPLETE W DOPPLER/CF WO CONTRAST Routine 04/11/2024 9:08 AM CDT UREA NITROGEN, URINE, RANDOM Routine 04/11/2024 5:37 AM CDT CREATININE, URINE, RANDOM Routine 04/11/2024 5:37 AM CDT EGFR Routine 04/11/2024 5:22 AM CDT DIFFERENTIAL AUTO Routine 04/11/2024 5:2 2 AM CDT CBC WITH AUTO DIFFERENTIAL Routine 04/11/2024 5:22 AM CDT MAGNESIUM Routine 04/11/2024 5:22 AM CDT LIPID PANEL Add-On 04/11/2024 5:22 AM CDT COMPREHENSIVE METABOLIC PANEL Routine 04/11/2024 5:22 AM CDT TROPONIN T HIGH-SENSITIVITY 6-HOUR Timed 04/10/2024 9:04 PM CDT TROPONIN T HIGH-SENSITIVITY 4-HR Timed 04/10/2024 7:00 PM CDT TROPONIN T HIGH-SENSITIVITY 2-HOUR Timed 04/10/2024 5:29 PM CDT XR CHEST 1 VIEW ED 04/10/2024 4:17 PM CDT TROPONIN T HIGH-SENSITIVITY SERIES (BASELINE, 2HR, 4HR, 6HR) STAT 04/10/2024 3:05 PM CDT EGFR STAT 04/10/2024 3:05 PM CDT DIFFERENTIAL AUTO STAT 04/10/2024 3:0 5 PM CDT PRO B-TYPE NATRIURETIC PEPTIDE STAT 04/10/2024 3:05 PM CDT CBC WITH AUTO DIFFERENTIAL STAT 04/10/2024 3:05 PM CDT COMPREHENSIVE METABOLIC PANEL STAT 04/10/2024 3:05 PM CDT ECG 12-LEAD STAT 04/10/2024 2:47 PM CDT documented in this encounter Results * TRANSTHORACIC ECHO (TTE) COMPLETE W DOPPLER/CF WO CONTRAST (04/11/2024 9:08 AM CDT) Anatomical Region Laterality Modality Ultrasound 04/11/2024 9:04 AM CDT Narrative 04/11/2024 2:28 PM CDT [address] [place] [address] Echocardiogram Report ADDENDUM Patient Name: TESS BENEDICT I : 1935 Study Date: 04/11/2024 9:04:49 AM Gender: F 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 INDICATIONS: Edema. Measurements: 2D/M Mode ?Doppler Measurement ?Value ?Normal Range ? Measurement ? Value ?Normal Range EF Teich MM ?72.2 ? [ 54.0 - 74.0 ] percent ?EDUARDO Vmax ?2.98 ? cm2 LVIDd MM ? 4.72 ? [ 3.80 - 5.20 ] cm ? AV Mean PG ?4 ?mmHg LVIDs MM ? 2.77 ? [ 2.20 - 3.50 ] cm ? AV Peak Matt ? 1.31 ? [ 1.00 - 1.70 ] m/s LVPWd MM ? 1.10 ? [ 0.60 - 0.90 ] cm ? AV VTI ?31.22 ?cm IVSd MM ?1.06 ? [ 0.60 - 0.90 ] cm ? LVOT Diam ? 2.35 ? cm LA Dimension MM ?4.01 ? [ 2.70 - 3.80 ] cm ? LVOT Peak Matt ? 0.93 ? [ 0.70 - 1.10 ] m/s AoR Diam MM ?2.74 ? [ 2.70 - 3.70 ] cm ? LVOT VTI ?24.86 ?cm ACS MM ? 1.54 ? cm ? MV E Peak Matt ? 1.32 ? [ 0.60 - 1.30 ] m/s MV A Peak Matt ?0.27 ? [ 1.00 - 1.20 ] m/s MV Mean PG ? 5 ?mmHg MV PHT ? 52 ? [ 20 - 100 ] msec MVA ?4.20 MV Decel Time ?198 ?[ 104 - 258 ] msec PV Peak Matt ?0.92 ? [ 0.40 - 0.80 ] m/s TR Peak Matt ?2.95 ? [ 1.00 - 2.80 ] m/s TR Peak PG ? 35 ? mmHg RVSP ? 40.00 ?[ 10.00 - 36.00 ] mmHg E` ? 0.09 ? m/s E/E` ? 14.25 ?[ <= 10.00 ] PA Pressure ?40.00 ?[ 10.00 - 36.00 ] mmHg Measurement ?Value ?Normal Range ? Measurement ? Value ?Normal Range 2D/M Mode ?Doppler - FINDINGS: Atrial Septum: Normal atrial septum. Left Ventricle: Normal left ventricular size. Mild concentric left ventricular hypertrophy. Hyperdynamic left ventricular function. No focal wall motion abnormalities. Ejection fraction is measured at >70 %. Left Atrium: There is mild enlargement of left atrium. Right Ventricle: Normal right ventricular size. Normal right ventricular systolic function. Right Atrium: The right atrium is normal in size. Aortic Valve: No evidence of hemodynamically significant aortic stenosis by Doppler. Aortic cusps appear mildly sclerotic. Mitral Valve: Mitral valve leaflets appear mildly thickened. Mild mitral annular calcification. Mild mitral valve regurgitation. Pulmonic Valve: Pulmonic valve not well visualized. No evidence of pulmonic regurgitation. Tricuspid Valve: Normal structure of the tricuspid valve. Moderate pulmonary hypertension based on right ventricular systolic pressure. Estimated peak RVSP is 48 mmHg. Mild tricuspid regurgitation. Pericardium: Normal pericardium with no significant pericardial effusion. Aorta: There is mild atherosclerosis in the aortic root. IVC: The IVC is not well visualized. Pulmonary Artery: Pulmonary artery not well visualized. CONCLUSIONS: Normal left ventricular size. Mild concentric left ventricular hypertrophy. Hyperdynamic left ventricular function. No focal wall motion abnormalities. Ejection fraction is measured at >70 %. Normal right ventricular size. Normal right ventricular systolic function. There is mild enlargement of left atrium. Mitral valve leaflets appear mildly thickened. Mild mitral annular calcification. Mild mitral valve regurgitation. No evidence of hemodynamically significant aortic stenosis by Doppler. Aortic cusps appear mildly sclerotic. Normal structure of the tricuspid valve. Moderate pulmonary hypertension based on right ventricular systolic pressure. Estimated peak RVSP is 48 mmHg. Mild tricuspid regurgitation. Normal pericardium with no significant pericardial effusion. Technically difficult study with limited views and visualization. Subcostal views not available. Valves in general are poorly visualized. Patient appears to be in atrial fibrillation during this study. 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 INDICATIONS: Edema. Measurements: 2D/M ModeDoppler Measurement Value Normal Range MeasurementValue Normal Range EF Teich MM 72.2 [ 54.0 - 74.0 ] percent EDUARDO Vmax2.98 cm2 LVIDd MM 4.72 [ 3.80 - 5.20 ] cm AV Mean PG4 mmHg LVIDs MM 2.77 [ 2.20 - 3.50 ] cm AV Peak Vel1.31 [ 1.00 - 1.70 ] m/s LVPWd MM 1.10 [ 0.60 - 0.90 ] cm AV VTI31.22 cm IVSd MM 1.06 [ 0.60 - 0.90 ] cm LVOT Diam2.35 cm LA Dimension MM 4.01 [ 2.70 - 3.80 ] cm LVOT PeakVel 0.93 [ 0.70 - 1.10 ] m/s AoR Diam MM 2.74 [ 2.70 - 3.70 ] cm LVOT VTI24.86 cm ACS MM 1.54 cm MV E PeakVel 1.32 [ 0.60 - 1.30 ] m/s MV A Peak Matt 0.27 [ 1.00 - 1.20 ] m/s MV Mean PG 5 mmHg MV PHT 52 [ 20 - 100 ] msec MVA 4.20 MV Decel Time 198 [ 104 - 258 ] msec PV Peak Matt 0.92 [ 0.40 - 0.80 ] m/s TR Peak Matt 2.95 [ 1.00 - 2.80 ] m/s TR Peak PG 35 mmHg RVSP 40.00 [ 10.00 - 36.00 ] mmHg E` 0.09 m/s E/E` 14.25 [ <= 10.00 ] PA Pressure 40.00 [ 10.00 - 36.00 ] mmHg Measurement Value Normal Range MeasurementValue Normal Range 2D/M ModeDoppler - FINDINGS: Atrial Septum: Normal atrial septum. Left Ventricle: Normal left ventricular size. Mild concentric left ventricularhypertrophy. Hyperdynamic left ventricular function. No focal wall motion abnormalities. Ejectionfraction is measured at >70 %. Left Atrium: There is mild enlargement of left atrium. Right Ventricle: Normal right ventricular size. Normal right ventricular systolicfunction. Right Atrium: The right atrium is normal in size. Aortic Valve: No evidence of hemodynamically significant aortic stenosis by Doppler.Aortic cusps appear mildly sclerotic. Mitral Valve: Mitral valve leaflets appear mildly thickened. Mild mitral annularcalcification. Mild mitral valve regurgitation. Pulmonic Valve: Pulmonic valve not well visualized. No evidence of pulmonicregurgitation. Tricuspid Valve: Normal structure of the tricuspid valve. Moderate pulmonary hypertensionbased on right ventricular systolic pressure. Estimated peak RVSP is 48 mmHg. Mildtricuspid regurgitation. Pericardium: Normal pericardium with no significant pericardial effusion. Aorta: There is mild atherosclerosis in the aortic root. IVC: The IVC is not well visualized. Pulmonary Artery: Pulmonary artery not well visualized. CONCLUSIONS: Normal left ventricular size. Mild concentric left ventricularhypertrophy. Hyperdynamic left ventricular function. No focal wall motion abnormalities. Ejectionfraction is measured at >70 %. Normal right ventricular size. Normal right ventricular systolicfunction. There is mild enlargement of left atrium. Mitral valve leaflets appear mildly thickened. Mild mitral annularcalcification. Mild mitral valve regurgitation. No evidence of hemodynamically significant aortic stenosis by Doppler.Aortic cusps appear mildly sclerotic. Normal structure of the tricuspid valve. Moderate pulmonary hypertensionbased on right ventricular systolic pressure. Estimated peak RVSP is 48 mmHg. Mildtricuspid regurgitation. Normal pericardium with no significant pericardial effusion. Technically difficult study with limited views and visualization.Subcostal views not available. Valves in general are poorly visualized. Patient appears to be in atrial fibrillation during this study. Electronically Signed By: Hyacinth Cortez MD 2024-04-11 14:27:51 CDT Electronically Amended By: Hyacinth Cortez MD 2024-04-11 14:33:36 CDT [ADDENDUM] Lencho Thomson MD CV ECHO PROCEDURES Edited Resul t - Final * Creatinine, urine, random (04/11/2024 5:37 AM CDT) Creatinine Ur 25.6 mg/dL Comment: Interpretive Data No reference range established. Current interpretive data was last revised 2018. Urine 04/11/2024 5:37 AM CDT 04/11/2024 5:40 AM CDT Narrative [facility] ([place]) - 04/11/2024 6:02 AM CDT No normal range Lencho Thomson MD LAB URINE ORDERABLES Final Resu lt Performing Organization Address [facility] Co de Phone Number [facility]I [facility] ([place]) 1 [facility] [place] [address] * Urea nitrogen, urine, random (04/11/2024 5:37 AM CDT) Urea nitrogen, ur 411 mg/dL Comment: Interpretive Data No reference range established. Current interpretive data was last revised 2018. Testing performed by: [facility], [address] [place] [address], [place] [address] Urine 04/11/2024 5:37 AM CDT 04/11/2024 8:49 AM CDT Lencho Thomson MD LAB URINE ORDERABLES Final Resu lt [facility]I [facility] ([place]) 1 [facility] [place] [address] * (ABNORMAL) Lipid panel (04/11/2024 5:22 AM CDT) Cholesterol 153 30 - 199 mg/dL Comment: Interpretive Data Ages < or = 19 years ??Acceptable: ? <170 mg/dL ??Borderline high: ??170-199 mg/dL ??High: ? >or= 200 mg/dL Ages > or = 20 years ??Desirable: ?<200 mg/dL ??Borderline high: ??200-239 mg/dL ??High: ? >or= 240 mg/dL Literature References: 1. Expert Panel on Integrated Guidelines for Cardiovascular Health and Risk Reduction in Children and Adolescents. Pediatrics 2011;128:S213 2. NCEP Expert Panel. Circulation 2004;110:227 Current Interpretive Data was last revised on 2018. Triglycerides 87 <=149 mg/dL [facility] ([place]) Comment: Interpretive Data Ages < or = 9 years ??Acceptable: ? <75 mg/dL ??Borderline high: ??75-99 mg/dL ??High: ? >or= 100 mg/dL Ages 10 to 20 years ??Acceptable: ? <90 mg/dL ??Borderline high: ??90-129 mg/dL ??High: ? >or= 130 mg/dL Ages > or = 20 years ??Desirable: ?<150 mg/dL ??Borderline high: ??150-199 mg/dL ??High: ? 200-499 mg/dL ?Very high: ?? >or= 499 mg/dL Literature References: 1. Expert Panel on Integrated Guidelines for Cardiovascular Health and Risk Reduction in Children and Adolescents. Pediatrics 2011;128:S213 2. NCEP Expert Panel. Circulation 2004;110:227 Current Interpretive Data was last revised on 2018. HDL 39(L) >=40 mg/dL [facility] [place] ([place]) Comment: Interpretive Data Ages < or = 19 years ??Acceptable: ? >45 mg/dL ??Borderline low: ?? 40-45 mg/dL ??Low: ? <40 mg/dL Ages > or = 20 years ??Desirable: ?>or= 60 mg/dL ??Low: ? <40 mg/dL Literature References: 1. Expert Panel on Integrated Guidelines for Cardiovascular Health and Risk Reduction in Children and Adolescents. Pediatrics 2011;128:S213 2. NCEP Expert Panel. Circulation 2004;110:227 Current Interpretive Data was last revised on 2018. LDL, calculated 97 <=129 mg/dL [facility]ANG ([place]) Comment: Interpretive Data Ages < or = 19 years ??Acceptable: ? <110 mg/dL ??Borderline high: ??110-129 mg/dL ??High: ?>or= 130 mg/dL Ages > or = 20 years ??Optimal: ? <100 mg/dL ??Near optimal: ?100-129 mg/dL ??Borderline high: ?? 130-159 mg/dL ??High: ?>160 mg/dL Calculated using the Angel LDL-C estimating equation. This equation was implemented on 2024. Prior to this date LDL-C was estimated using the Friedewald equation. Literature References: 1. Expert Panel on Integrated Guidelines for Cardiovascular Health and Risk Reduction in Children and Adolescents. Pediatrics 2011;128:S213 2. NCEP Expert Panel. Circulation 2004;110:227 3. Angel Escobedo et al. WILIAM Cardiol. 2020 October 17;5(5):540-548. doi: 10.1001/jamacardio.2020.0013 Current Interpretive Data was last revised on 2024. Non-HDL Cholesterol 114 mg/dL [facility] ([place]) Comment: Interpretive Data Ages < or = 19 years ??Acceptable: ?<120 mg/dL ??Borderline high: ??120-144 mg/dL ??High: ?>145 mg/dL Ages > or = 20 years ??When triglycerides are >200 mg/dL, Non-HDL cholesterol is a secondary target of ? therapy with treatment goals that are 30 mg/dL greater than the LDL cholesterol target. ? Literature References: 1. Expert Panel on Integrated Guidelines for Cardiovascular Health and Risk Reduction in Children and Adolescents. Pediatrics 2011;128:S213 2. NCEP Expert Panel. Circulation 2004;110:227 Current Interpretive Data was last revised on 2018. Chol/HDL ratio 4 RONIT FANG ([place]) Blood 04/11/2024 5:22 AM CDT 04/11/2024 10:02 AM CDT Narrative CH[facility]I FANG ([place]) - 04/11/2024 10:18 AM CDT May run on this am draw us Jailyn Castro MD LAB BLOOD ORDERABLES Final Resu lt [facility]I [facility]ANG ([place]) 1 [facility] Department of Laboratories [place], [place] [id number] * (ABNORMAL) eGFR (04/11/2024 5:22 AM CDT) eGFR 37(L) >=60 mL/min/1. 73 m2 Comment: Interpretive Data [...] of Race in Diagnosing Kidney Disease, JASN 2020). The CKD-EPI equation should not be used for patients with unstable renal function and has not been validated in children and those over 70. Current interpretive data was last reviewed 2021. Blood 04/11/2024 5:22 AM CDT 04/11/2024 6:22 AM CDT us Eri BRUCE LAB BLOOD ORDERABLES Farzana hernandez Result [facility] ([place]) 1 [facility] [place] [address] * (ABNORMAL) Differential, auto (04/11/2024 5:22 AM CDT) Neutrophil abs 7.3(H) 1.5 - 6.5 K/cumm Imm gran abs 0.1 0.0 - 0.1 K/cumm [facility] ([place]) Lymphocyte abs 0.8 0.8 - 3.3 K/cumm [facility] ([place]) Monocyte abs 0.6 0.2 - 0.8 K/cumm [facility] ([place]) Eosinophil abs 0.3 0.0 - 0.5 K/cumm [facility] ([place]) Basophil abs 0.0 0.0 - 0.1 K/cumm [facility] ([place]) Neutrophil pct 80.1 % [facility] ([place]) Comment: Interpretive Data Percent cell count reference ranges are not reported, since discordance with absolute values may lead to misinterpretation of CBC data. Current Interpretive Data was last revised on 2017. Imm gran pct 1.2 % [facility] ([place]) Comment: Interpretive Data Percent cell count reference ranges are not reported, since discordance with absolute values may lead to misinterpretation of CBC data. Current Interpretive Data was last revised on 2017. Lymphocyte pct 8.6 % [facility] ([place]) Comment: Interpretive Data Percent cell count reference ranges are not reported, since discordance with absolute values may lead to misinterpretation of CBC data. Current Interpretive Data was last revised on 2017. Monocyte pct 6.8 % [facility] ([place]) Comment: Interpretive Data Percent cell count reference ranges are not reported, since discordance with absolute values may lead to misinterpretation of CBC data. Current Interpretive Data was last revised on 2017. Eosinophil pct 2.9 % [facility] ([place]) Comment: Interpretive Data Percent cell count reference ranges are not reported, since discordance with absolute values may lead to misinterpretation of CBC data. Current Interpretive Data was last revised on 2017. Basophil pct 0.4 % [facility] ([place]) Comment: Interpretive Data Percent cell count reference ranges are not reported, since discordance with absolute values may lead to misinterpretation of CBC data. Current Interpretive Data was last revised on 2017. Blood 04/11/2024 5:22 AM CDT 04/11/2024 6:23 AM CDT us Eri BRUCE LAB BLOOD ORDERABLES Farzana l Result Performing Organization Address City/[facility]/ZIP Co de Phone Number [facility] ([place]) 1 [facility] [address] [place] [address] * Magnesium (04/11/2024 5:22 AM CDT) Magnesium 2.0 1.4 - 2.5 mg/dL Blood 04/11/2024 5:22 AM CDT 04/11/2024 6:31 AM CDT us Lencho Thomson MD LAB BLOOD ORDERABLES Final Resu lt [facility] ([place] 1 [facility] [address] [place] [address] * (ABNORMAL) Comprehensive metabolic panel (04/11/2024 5:22 AM CDT) Sodium 130(L) 135 - 145 mmol/L Potassium, pl 3.6 3.3 - 4.9 mmol/L [facility] ([place]) Chloride 92(L) 97 - 110 mmol/L [facility] ([place]) CO2 26 22 - 32 mmol/L [facility] ([place]) Anion gap 13 2 - 15 mmol/L [facility] ([place]) BUN 68(H) 6 - 25 mg/dL [facility] ([place]) Creatinine 1.39(H) 0.60 - 1.10 mg/dL [facility] ([place]) Glucose 79 70 - 199 mg/dL [facility] ([place]) Comment: Interpretive Data Fasting glucose [...] interpretive data was last revised 2022. Calcium 8.7 8.5 - 10.3 mg/dL [facility] ([place]) Bilirubin, total 0.3 0.1 - 1.2 mg/dL [facility] ([place]) Protein, pl 6.1(L) 6.5 - 8.5 g/dL [facility] ([place]) Albumin 2.8(L) 3.5 - 5.0 g/dL [facility] ([place]) Alk phos 98 40 - 130 Units/L [facility] ([place]) ALT 7 7 - 45 Units/L [facility] ([place]) AST 12 10 - 45 Units/L [facility] ([place]) Blood 04/11/2024 5:22 AM CDT 04/11/2024 6:22 AM CDT us Lencho Thomson MD LAB BLOOD ORDERABLES Final Resu lt [facility]IDI [facility] ([place]) 1 [facility] [place] [address] * (ABNORMAL) CBC with auto differential (04/11/2024 5:22 AM CDT) Pathologist [facility] WBC 9.1 3.8 - 9.9 K/cumm Hgb 11.2(L) 11.9 - 15.5 g/dL [facility] ([place]) Hct 34.6(L) 35.6 - 45.5 % [facility] ([place]) Plt 298 150 - 400 K/cumm [facility] ([place]) MPV 9.4 9.1 - 12.3 fL [facility] ([place]) RBC 4.02 3.90 - 5.20 M/cumm [facility] ([place]) MCV 86.1 81.3 - 96.4 fL [facility] ([place]) MCH 27.9 27.1 - 33.3 pg [facility] ([place]) MCHC 32.4 32.3 - 35.7 g/dL [facility] ([place]) RDW CV 15.9(H) 11.1 - 14.9 % [facility] ([place]) RDW SD 49.6(H) 35.7 - 48.1 fL [facility] ([place]) NRBC abs 0.00 0.00 - 0.01 K/cumm [facility] ([place]) Blood 04/11/2024 5:22 AM CDT 04/11/2024 6:23 AM CDT us Lencho Thomson MD LAB BLOOD ORDERABLES Final Resu lt CHIDI [facility]ANG ([place]) 1 [facility] [place] [address] * (ABNORMAL) Troponin T high-sensitivity 6-hour (04/10/2024 9:04 PM CDT) Pathologist [facility] Trop T hs 23(H) <=14 ng/L Comment: Interpretive Data For further hscTnT resources including the diagnostic algorithm and an aid in interpretation, copy and paste this link: [email or web address]/show/[email or web address] Current Interpretive Data last revised 2020. Trop T hs delta -3 ng/L [facility] ([place]) Trop T hs interp Insignificant [facility] ([place]) Blood 04/10/2024 9:04 PM CDT 04/10/2024 9:07 PM CDT Hai Cook ASSISTANT REFINERY OPERATOR LAB BLOOD ORDERABLES Final Result Performing Organization Address [facility] Co de Phone Number [facility] ([place]) 1 [facility] [address] [place] [address] * (ABNORMAL) Troponin T high-sensitivity 4-hour (04/10/2024 7:00 PM CDT) Trop T hs 23(H) <=14 ng/L Comment: Interpretive Data For further hscTnT resources including the diagnostic algorithm and an aid in interpretation, copy and paste this link: [email or web address]/show/hsTrop Current Interpretive Data last revised 2020. Trop T hs delta -3 ng/L [facility] ([place]) Trop T hs interp Insignificant [facility] ([place]) Blood 04/10/2024 7:00 PM CDT 04/10/2024 7:03 PM CDT Hai Cook NP LAB BLOOD ORDERABLES Final Result Performing Organization Address City/[facility] Co de Phone Number [facility] ([place]) 1 [facility] [address] [place] [address] * (ABNORMAL) Troponin T high-sensitivity 2-hour (04/10/2024 5:29 PM CDT) Trop T hs 23(H) <=14 ng/L Comment: Interpretive Data For further hscTnT resources including the diagnostic algorithm and an aid in interpretation, copy and paste this link: [email or web address]://[email or web address]/show/hsTrop Current Interpretive Data last revised 2020. Trop T hs delta -3 ng/L [facility] ([place]) Trop T hs interp Insignificant [facility] ([place]) Blood 04/10/2024 5:29 PM CDT 04/10/2024 5:31 PM CDT us Hai Cook ASSISTANT REFINERY OPERATOR LAB BLOOD ORDERABLES Final Result [facility] ([place]) 1 [facility] [place] [address] * XR Chest 1 Vw Portable (04/10/2024 4:17 PM CDT) Anatomical Region Laterality Modality Body, Chest N/A Computed Radiogr aphy 04/10/2024 5:24 PM CDT Narrative 04/10/2024 5:48 PM CDT EXAM DESCRIPTION: XR CHEST 1 VIEW REASON FOR STUDY: Pain TECHNIQUE: Frontal ??radiographic view(s) of the chest. COMPARISON: 03/15/2024 FINDINGS: LUNGS: Mild bibasilar atelectasis and/or scarring. ??Slight scattered bilateral pulmonary parenchymal scarring. ?? No focal pulmonary parenchymal consolidation, pleural effusion, or pneumothorax. ?? HEART/MEDIASTINUM: ??Mild enlargement of the cardiac silhouette. ??Mildly tortuous thoracic aorta.. ??Mediastinal and hilar contours are otherwise normal. LINES/TUBES: ??None. BONES: ??No acute osseous abnormality. IMPRESSION: No acute cardiopulmonary abnormality. THIS IS AN ELECTRONICALLY VERIFIED FINAL REPORT 04/10/2024 5:48 PM - Electronically signed by ??Zoraida Parks M.D. AT: AT D: ??04/10/2024 5:48 PM T: ??04/10/2024 5:48 PM Report ID: [id number] Reading Location: ??[id number] Procedure Note Zoraida Parks MD - 04/10/2024 EXAM DESCRIPTION: XR CHEST 1 VIEW REASON FOR STUDY: Pain TECHNIQUE: Frontal radiographic view(s) of the chest. COMPARISON: 03/15/2024 FINDINGS: LUNGS: Mild bibasilar atelectasis and/or scarring. Slight scatteredbilateral pulmonary parenchymal scarring. No focal pulmonary parenchymal consolidation, pleural effusion, or pneumothorax. HEART/MEDIASTINUM: Mild enlargement of the cardiac silhouette. Mildly tortuous thoracic aorta.. Mediastinal and hilar contours are otherwise normal. LINES/TUBES: None. BONES: No acute osseous abnormality. IMPRESSION: No acute cardiopulmonary abnormality. THIS IS AN ELECTRONICALLY VERIFIED FINAL REPORT 04/10/2024 5:48 PM - Electronically signed by Zoraida Parks M.D. AT: AT Report ID: [id number] Reading Location: [place] [address] Eri BRUCE IMG XR PROCEDURES Final R esult * (ABNORMAL) eGFR (04/10/2024 3:05 PM CDT) eGFR 28(L) >=60 mL/min/1. 73 m2 Comment: Interpretive Data [...] Inclusion of Race in Diagnosing Kidney Disease, KERISN 2020). The CKD-EPI equation should not be used for patients with unstable renal function and has not been validated in children and those over 70. Current interpretive data was last reviewed 2021. Blood 04/10/2024 3:05 PM CDT 04/10/2024 3:11 PM CDT us Hai Cook ASSISTANT REFINERY OPERATOR LAB BLOOD ORDERABLES Final Result [facility] ([place]) 1 [facility] [place] [address] * (ABNORMAL) Differential, auto (04/10/2024 3:05 PM CDT) Neutrophil abs 8.0(H) 1.5 - 6.5 K/cumm Imm gran abs 0.1 0.0 - 0.1 K/cumm [facility] ([place]) Lymphocyte abs 0.7(L) 0.8 - 3.3 K/cumm [facility] ([place]) Monocyte abs 0.6 0.2 - 0.8 K/cumm [facility] ([place]) Eosinophil abs 0.3 0.0 - 0.5 K/cumm [facility] ([place]) Basophil abs 0.1 0.0 - 0.1 K/cumm [facility] ([place]) Neutrophil pct 82.3 % [facility] ([place]) Comment: Interpretive Data Percent cell count reference ranges are not reported, since discordance with absolute values may lead to misinterpretation of CBC data. Current Interpretive Data was last revised on 2017. Imm gran pct 0.9 % [facility] ([place]) Comment: Interpretive Data Percent cell count reference ranges are not reported, since discordance with absolute values may lead to misinterpretation of CBC data. Current Interpretive Data was last revised on 2017. Lymphocyte pct 7.0 % [facility] ([place]) Comment: Interpretive Data Percent cell count reference ranges are not reported, since discordance with absolute values may lead to misinterpretation of CBC data. Current Interpretive Data was last revised on 2017. Monocyte pct 6.2 % [facility] ([place]) Comment: Interpretive Data Percent cell count reference ranges are not reported, since discordance with absolute values may lead to misinterpretation of CBC data. Current Interpretive Data was last revised on 2017. Eosinophil pct 3.0 % [facility] ([place]) Comment: Interpretive Data Percent cell count reference ranges are not reported, since discordance with absolute values may lead to misinterpretation of CBC data. Current Interpretive Data was last revised on 2017. Basophil pct 0.6 % [facility] ([place]) Comment: Interpretive Data Percent cell count reference ranges are not reported, since discordance with absolute values may lead to misinterpretation of CBC data. Current Interpretive Data was last revised on 2017. Blood 04/10/2024 3:05 PM CDT 04/10/2024 3:11 PM CDT us Hai Cook NP LAB BLOOD ORDERABLES Final Result [facility]I [facility] ([place]) 1 [facility] [place] [address] * (ABNORMAL) Troponin T high-sensitivity series (baseline, 2hr, 4hr, 6hr) (04/10/2024 3:05 PM CDT) Trop T hs 26(H) <=14 ng/L Comment: Interpretive Data For further hscTnT resources including the diagnostic algorithm and an aid in interpretation, copy and paste this link: https://nrl.testcatalog.org/show/hsTrop Current Interpretive Data last revised 2020. Blood 04/10/2024 3:05 PM CDT 04/10/2024 3:11 PM CDT us Hai Cook NP LAB BLOOD ORDERABLES Final Result Performing Organization Address City/[facility]/ZIP Co de Phone Number CH[facility]I [facility] ([place]) 1 [facility] [address] [place] [address] * (ABNORMAL) Pro B-type natriuretic peptide (04/10/2024 3:05 PM CDT) NT-proBNP 5,963(H) <=450 pg/mL Comment: Interpretive Comments: A. Dyspnea [...] et.al. Eur Heart J. 2006:27:330-337. 2. Hayden JORDAN, Iman ETIENNE. J. AM Sahra Cardiol: Cardiovasc Imag. 2009;2: 216- 225. Interpretive Data Last Revised Date: 2018. Blood 04/10/2024 3:05 PM CDT 04/10/2024 3:11 PM CDT Hai Cook NP LAB BLOOD ORDERABLES Final Result [facility] ([place]) 1 [facility] [place] [address] * (ABNORMAL) Comprehensive metabolic panel (04/10/2024 3:05 PM CDT) Sodium 134(L) 135 - 145 mmol/L Potassium, pl 4.3 3.3 - 4.9 mmol/L [facility] ([place]) Chloride 92(L) 97 - 110 mmol/L [facility] ([place]) CO2 33(H) 22 - 32 mmol/L [facility] ([place]) Anion gap 10 2 - 15 mmol/L [facility] ([place]) BUN 74(H) 6 - 25 mg/dL [facility] ([place]) Creatinine 1.75(H) 0.60 - 1.10 mg/dL [facility] ([place]) Glucose 97 70 - 199 mg/dL [facility] ([place]) Comment: Interpretive Data Fasting glucose [...] classification and Diagnosis of Diabetes Diabetes Care 202; 46: S19-S40. Current interpretive data was last revised 2022. Calcium 9.1 8.5 - 10.3 mg/dL [facility] ([place]) Bilirubin, total 0.2 0.1 - 1.2 mg/dL [facility] ([place]) Protein, pl 7.1 6.5 - 8.5 g/dL [facility] ([place]) Albumin 3.6 3.5 - 5.0 g/dL [facility] ([place]) Alk phos 109 40 - 130 Units/L [facility] ([place]) ALT 9 7 - 45 Units/L [facility] ([place]) AST 14 10 - 45 Units/L [facility] ([place]) Blood 04/10/2024 3:05 PM CDT 04/10/2024 3:11 PM CDT us Hai Cook NP LAB BLOOD ORDERABLES Final Result Performing Organization Address City/[facility]/ZIP Co de Phone Number [facility] ([place]) 1 [facility] [place] [address] * (ABNORMAL) CBC with auto differential (04/10/2024 3:05 PM CDT) WBC 9.7 3.8 - 9.9 K/cumm Hgb 12.2 11.9 - 15.5 g/dL [facility] ([place]) Hct 38.6 35.6 - 45.5 % [facility] ([place]) Plt 334 150 - 400 K/cumm [facility] ([place]) MPV 9.0(L) 9.1 - 12.3 fL [facility] ([place]) RBC 4.40 3.90 - 5.20 M/cumm [facility] ([place]) MCV 87.7 81.3 - 96.4 fL [facility] ([place]) MCH 27.7 27.1 - 33.3 pg [facility] ([place]) MCHC 31.6(L) 32.3 - 35.7 g/dL [facility] ([place]) RDW CV 15.8(H) 11.1 - 14.9 % [facility] ([place]) RDW SD 49.8(H) 35.7 - 48.1 fL [facility] ([place]) NRBC abs 0.00 0.00 - 0.01 K/cumm [facility] ([place]) Blood 04/10/2024 3:05 PM CDT 04/10/2024 3:11 PM CDT us Hai Cook NP LAB BLOOD ORDERABLES Final Result [facility] ([place]) 1 [facility] [place] [address] * ECG 12 lead (04/10/2024 2:47 PM CDT) 04/10/2024 2:47 PM CDT Narrative [facility] - 04/12/2024 10:54 AM CDT Vent Rate: 68 bpm RR Interval: 872 msec [place] Interval: 0 msec QRS Duration: 73 msec QT Interval: 397 msec QTC Interval: 415 msec P-R-T Anna: [id number] - 65 - 33 degrees IMPRESSION: ATRIAL FIBRILLATION LOW QRS VOLTAGE IN PRECORDIAL LEADS ??[QRS DEFLECTION < 1.0 mV IN CHEST LEADS] ABNORMAL RHYTHM ECG No change compared to prior EKG Electronically Signed By: Eric BUCKLEYB us Hai Cook NP ECG ORDERABLES Final Resul t [facility] documented in this encounter Visit Diagnoses Diagnosis DANNY (acute kidney injury) (HCC)- Primary DANNY (acute kidney injury) (HCC) Acute on chronic congestive heart failure, unspecified heart failure type (HCC) CKD stage 3b, GFR 30-44 ml/min (HCC) documented in this encounter Admitting Diagnoses Diagnosis DANNY (acute kidney injury) (HCC) documented in this encounter Administered Medications Inactive Administered Medications - up to 3 most recent administrations Medication Order MAR Action Action Date Dose Rate Site acetaminophen (TYLENOL) tablet 650 mg 650 mg, oral, Every 4 hours PRN, 1st line for pain, Starting on Mon04/10/24 at 1747, Indications: PainIndications:Pain Given 04/10/2024 11:04 PM CDT 650 mg albuterol 2.5 mg /3 mL (0.083 %) nebulizer solution 2.5 mg 2.5 mg, nebulization, Every 6 hours PRN (aba therapist), wheezing, shortness of breath, Starting on Mon04/11/24 at 0052 allopurinoL (ZYLOPRIM) tablet 200 mg 200 mg, oral, Daily, First dose on Mon04/11/24 at 0900 Given 04/11/2024 8:20 AM CDT 200 mg apixaban (ELIQUIS) tablet 2.5 mg 2.5 mg, oral, 2 times daily, First dose on [place] 04/11/24 at 0130, Indications: atrial fibrillationIndications:atrial fibrillation Given 04/11/2024 8:20 AM CDT 2.5 mg Given 04/11/2024 2:11 AM CDT 2.5 mg furosemide (LASIX) 10 mg/mL injection 20 mg 20 mg, intravenous, Once, On Mon04/10/24 at 1742, For 1 dose, For IV push: administer doses < 160 mg at a rate of 20 -40 mg/min. Doses >/= 160 mg should be administered no faster than 4 mg/min. Room temperature only Given 04/10/2024 5:45 PM CDT 20 mg gabapentin (NEURONTIN) capsule 100 mg 100 mg, oral, 3 times daily, First dose on Katy 04/11/24 at 0900 Given 04/11/2024 8:18 AM CDT 100 mg ondansetron (ZOFRAN) injection 4 mg 4 mg, intravenous, Administer over 2 Minutes, Every 6 hours PRN, nausea, vomiting, if not tolerating PO, Starting on Mon04/10/24 at 1747, Indications: Nausea and VomitingIndications:Nausea and Vomiting ondansetron ODT (ZOFRAN-ODT) disintegrating tablet 4 mg 4 mg, oral, Every 6 hours PRN, nausea, vomiting, Starting on Mon04/10/24 at 1747, Indications: Nausea and VomitingIndications:Nausea and Vomiting oxyCODONE (ROXICODONE) tablet 5 mg 5 mg, oral, Every 4 hours PRN, 2nd line for pain, Starting on Mon04/10/24 at 1747, May administer 1 hour after 1st line agent for uncontrolled or increasing pain. , Indications: PainIndications:Pain pantoprazole DR (PROTONIX) extended release tablet 40 mg 40 mg, oral, Daily, First dose on Katy 04/11/24 at 0900, Do not crush, chew, cut, dissolve, open or otherwise manipulate tablet/capsule., Indications: Treatment of Non-Bleeding Gastric DisorderIndications:Treatment of Non-Bleeding Gastric Disorder Given 04/11/2024 8:20 AM CDT 40 mg pramipexole (MIRAPEX) tablet 0.75 mg 0.75 mg, oral, 2 times daily, First dose on Katy 04/11/24 at 0130 Given 04/11/2024 8:20 AM CDT 0.75 mg Given 04/11/2024 2:10 AM CDT 0.75 mg propranoloL (INDERAL) tablet 20 mg 20 mg, oral, 2 times daily with meals (bkfst, lunch), First dose on Katy 04/11/24 at 0800, Indications: Essential TremorIndications:Essential Tremor Given 04/11/2024 12:09 PM CDT 20 mg Given 04/11/2024 8:18 AM CDT 20 mg ramelteon (ROZEREM) tablet 8 mg 8 mg, oral, Nightly PRN, sleep, Starting on Katy 04/11/24 at 0152, Indications: Sleep-Onset InsomniaIndications:Sleep-Onset Insomnia Given 04/11/2024 2:10 AM CDT 8 mg sodium chloride 0.9% flush 0.5-20 mL 0.5-20 mL, intra-catheter, Every 8 hours, First dose on Katy 04/11/24 at 0600, Flush volume based on line type and size. Given 04/11/2024 12:10 PM CDT 10 mL Given 04/11/2024 5:34 AM CDT 10 mL sodium chloride 0.9% flush 0.5-20 mL 0.5-20 mL, intra-catheter, As needed, line care, Starting on Katy 04/11/24 at 0115, Flush volume based on line type and size. Flush before and after each use. documented in this encounter Active and Recently Administered Medications Times are shown in CDT. Scheduled Medication Order 04/09/2024 04/10/2024 04/11/2024 allopurinoL (ZYLOPRIM) tablet 200 mg 200 mg, oral, Daily, First dose on [place]y 04/11/24 at 0900 0820 (Given - Provid er: Jovana Miller) apixaban (ELIQUIS) tablet 2.5 mg 2.5 mg, oral, 2 times daily, First dose on Katy 04/11/24 at 0130, Indications: atrial fibrillation 0211 (Given - Provid er: Katy Munoz RN)0820 (Given - Provider: Jovana Miller) furosemide (LASIX) 10 mg/mL injection 20 mg (COMPLETED) 20 mg, intravenous, Once, On Mon04/10/24 at 1742, For 1 dose, For IV push: administer doses < 160 mg at a rate of 20 -40 mg/min. Doses >/= 160 mg should be administered no faster than 4 mg/min. Room temperature only 1745 (Given - Provider: Juanita Todd RN) furosemide (LASIX) tablet 80 mg 80 mg, oral, 2 times daily (for diuretics), First dose on Mon04/11/24 at 0900, On hold since Mon04/11/2024 at 0046 until manually unheld 0046 (Held by Provid er - Provider: Lencho Thomson MD - Reason: Pending Results)0900 (Dose Auto Held)175 (Unheld by Provider - Provider: Automatic Discharge Provider) gabapentin (NEURONTIN) capsule 100 mg 100 mg, oral, 3 times daily, First dose on Mon04/11/24 at 0900 0818 (Given - Provid er: Jovana Miller) metOLazone (ZAROXOLYN) tablet 5 mg 5 mg, oral, 2 times weekly (Once per day on Monday), First dose on Mon04/11/24 at 0900, On hold since Mon04/11/2024 at 0046 until manually unheld 0046 (Held by Provid er - Provider: Lencho Thomson MD - Reason: Pending Results)0900 (Dose Auto Held)175 (Unheld by Provider - Provider: Automatic Discharge Provider) pantoprazole DR (PROTONIX) extended release tablet 40 mg 40 mg, oral, Daily, First dose on Mon04/11/24 at 0900, Do not crush, chew, cut, dissolve, open or otherwise manipulate tablet/capsule., Indications: Treatment of Non-Bleeding Gastric Disorder 0820 (Given - Provid er: Jovana Miller) pramipexole (MIRAPEX) tablet 0.75 mg 0.75 mg, oral, 2 times daily, First dose on Mon04/11/24 at 0130 0210 (Given - Provid er: Katy Munoz RN)0820 (Given - Provider: Jovana Miller) propranoloL (INDERAL) tablet 20 mg 20 mg, oral, 2 times daily with meals (bkfst, lunch), First dose on Mon04/11/24 at 0800, Indications: Essential Tremor 0818 (Given - Provid er: Jovana Miller)1209 (Given - Provider: Jovana Miller) sodium chloride 0.9% flush 0.5-20 mL 0.5-20 mL, intra-catheter, Every 8 hours, First dose on Mon04/11/24 at 0600, Flush volume based on line type and size. 0534 (Given - Provid er: Katy Munoz, XU)1210 (Given - Provider: Jovana Miller) spironolactone (ALDACTONE) tablet 25 mg 25 mg, oral, Daily, First dose on Mon04/11/24 at 0900, On hold since Mon04/11/2024 at 0046 until manually unheld 0046 (Held by Provid er - Provider: Lencho Thomson MD - Reason: Pending Results)0900 (Dose Auto Held)1751 (Unheld by Provider - Provider: Automatic Discharge Provider) PRN Medication Order 04/09/2024 04/10/2024 04/11/2024 acetaminophen (TYLENOL) tablet 650 mg 650 mg, oral, Every 4 hours PRN, 1st line for pain, Starting on Mon04/10/24 at 1747, Indications: Pain 2304 (Given - Provider: Katy Munoz, XU) albuterol 2.5 mg /3 mL (0.083 %) nebulizer solution 2.5 mg 2.5 mg, nebulization, Every 6 hours PRN (aba therapist), wheezing, shortness of breath, Starting on Mon04/11/24 at 0052 ondansetron (ZOFRAN) injection 4 mg(Linked Group 1) 4 mg, intravenous, Administer over 2 Minutes, Every 6 hours PRN, nausea, vomiting, if not tolerating PO, Starting on Mon04/10/24 at 1747, Indications: Nausea and Vomiting ondansetron ODT (ZOFRAN-ODT) disintegrating tablet 4 mg(Linked Group 1) 4 mg, oral, Every 6 hours PRN, nausea, vomiting, Starting on Mon04/10/24 at 1747, Indications: Nausea and Vomiting oxyCODONE (ROXICODONE) tablet 5 mg 5 mg, oral, Every 4 hours PRN, 2nd line for pain, Starting on Mon04/10/24 at 1747, May administer 1 hour after 1st line agent for uncontrolled or increasing pain. , Indications: Pain ramelteon (ROZEREM) tablet 8 mg 8 mg, oral, Nightly PRN, sleep, Starting on Mon04/11/24 at 0152, Indications: Sleep-Onset Insomnia 0210 (Given - Provid er: Katy Munoz RN) sodium chloride 0.9% flush 0.5-20 mL 0.5-20 mL, intra-catheter, As needed, line care, Starting on Mon04/11/24 at 0115, Flush volume based on line type and size. Flush before and after each use. Linked Groups Order Group 1: ondansetron ODT (ZOFRAN-ODT) disintegrating tablet 4 mgJump to med 4 mg, oral, Every 6 hours PRN, nausea, vomiting, Starting on Mon04/10/24 at 1747, Indications: Nausea and Vomiting Or ondansetron (ZOFRAN) injection 4 mgJump to med 4 mg, intravenous, Administer over 2 Minutes, Every 6 hours PRN, nausea, vomiting, if not tolerating PO, Starting on Mon04/10/24 at 1747, Indications: Nausea and Vomiting documented in this encounter Orders Medications Ordered That Alhaji ht Not Have Been Administered Count Last Ordered Date First Ordered Date albuterol 2.5 mg /3 mL (0.08 3 %) nebulizer solution 2.5 mg 1 04/11/2024 albuterol HFA (PROVENTIL HFA ,VENTOLIN HFA,PROAIR HFA) 90 mcg/actuation inhaler 2 puff 1 04/11/2024 furosemide (LASIX) tablet 80 mg 1 metOLazone (ZAROXOLYN) tablet 5 mg 1 2023 sodium chloride 0.9% flush 0.5-20 mL 1 03/20 spironolactone (ALDACTONE) tablet 25 mg 1 1 ondansetron (ZOFRAN) injection 4 mg 1 04/10 ondansetron ODT (ZOFRAN-ODT) disintegrating tablet 4 mg 1 04/10/2024 oxyCODONE (ROXICODONE) tablet 5 mg 1 2023 Diet Count Last Ordered Date First Orde red Date ADULT DISCHARGE DIET 1 04/11/2024 Nursing Count Last Ordered Date First Orde red Date DISCHARGE ACTIVITY 1 04/11/2024 TELEMETRY MONITORING 1 04/10/2024 WEIGH PATIENT 1 04/10/2024 Consult Count Last Ordered Date First Orde red Date IP CONSULT TO CARDIOLOGY 1 04/10/2024 Admission Count Last Ordered Date First Orde red Date INITIATE OBSERVATION SERVICES 1 04/10/2024 Discharge Count Last Ordered Date First Orde red Date DISCHARGE PATIENT 1 04/11/2024 CORE MEASURES Count Last Ordered Date First Ord ered Date REASON FOR NO VTE PROPHYLAXIS AT ADMISSION 1 04/10/2024 documented in this encounter Care Teams Ranch Manager Relationship Specialty Start Date End Date Pepper Morgan MD PCP - General 09/16/16 Hank Garibay MD [address] [facility] [address] [place] [address] Surgeon Orthopedic Surgery 03/27/17 Jacky Murry MD [address] [facility] [address] [place] [address] Ophthalmology 03/27/17 Puma Mckenzie MD [address] [facility] [address] [place] [address] Surgeon Orthopedic Surgery 07/11/19 Neha Jackson, PT Physical Therapist Physical Therapy 12/01/21 Stalin Arauz MD [address] [facility] [address] [place] [address] Consulting Physician Cardiology 12/08/22 Tiffany Rojas PA [address] [place] [address] Gastroenterology 12/30/22 Klaus Deshpande MD [address] [facility] [address] [place] [address] Consulting Physician Neurology 06/13/23 documented as of this encounter
--- OUTSIDE RECORDS SUMMARY | 2024-06-18 18:47 | XMS_ITS | Referral Summary ---
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 Name Role Phone Pepper Morgan MD Primary Care Provider + [phone] Hank Garibay MD Unavailable [phone] Jacky Murry MD Unavailable [phone] Puma Mckenzie MD Unavailable [phone] Neha Jackson PT Unavailable Unavailable Stalin Arauz MD Unavailable [phone] Tiffany Rojas Unavailable [phone] Klaus Deshpande MD Unavailable [phone] Encounters Date Type Department Care Team Description 05/07/2024 3:45 PM PAINT GRINDER [facility] [address] [place] [address] ePpper Morgan MD Infected abrasion of right lower extremity, initial encounter (Primary Dx); Acute on chronic heart failure with preserved ejection fraction (CMS/HCC) (HCC); CKD stage 3b, GFR 30-44 ml/min (HCC); Immunization counseling 05/07/2024 Telephone [facility] [address] [place] [address] Pepper Morgan MD Bleeding/Bruising 04/30/2024 Orders Only [place] [facility] [employer] [facility] at [address] [place] [address] Stalin Arauz MD CKD stage 3b, GFR 30-44 ml/min (HCC) (Primary Dx) 04/30/2024 Telephone [facility] [employer] at [address] [place] [address] Hai Dalton MA 04/29/2024 1:00 PM PAINT GRINDER Office Visit [facility] [address] [facility] [address] [place] [id number] Jadyn Hobson PA Osteoarthritis of right glenohumeral joint (Primary Dx); Complete tear of right rotator cuff, unspecified whether traumatic 04/16/2024 11:30 AM CDT Office Visit [place] [employer] at [address] [place] [address] Maude Harris NP Chronic atrial fibrillation (HCC) (Primary Dx); Chronic heart failure with preserved ejection fraction (CMS/HCC) (HCC); Atherosclerosis of [place] arteries of extremities with rest pain, right leg (HCC); 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; Atherosclerosis of [place] arteries of extremities with intermittent claudication, bilateral legs (HCC); Paroxysmal atrial fibrillation (CMS/HCC) (HCC) 04/15/2024 Telephone [place] [facility] [employer] at [address] [place] [address] Hai Dalton MA 04/12/2024 Telephone [facility] Medical [facility] [address] [facility] [address] [place] [address] Pepper Morgan MD 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 MARIO IP 04/12/2024 MARIO IP Outreach [facility] Care Organization [address] [place] [address] Radha Pascual LPN 04/10/2024 4:01 PM CDT - 04/11/2024 1:51 PM CDT Emergency [facility] [address] [place] [address] Edwina Parish MD Kim, Eileen H., MD DANNY (acute kidney injury) (HCC) (Primary Dx); Acute on chronic congestive heart failure, unspecified heart failure type (HCC); CKD stage 3b, GFR 30-44 ml/min (HCC) Discharge Disposition: Discharge to home or self care 04/10/2024 9:40 AM CDT Lab [facility] [address] [place] [address] Chronic heart failure with preserved ejection fraction (CMS/HCC) (HCC) 04/04/2024 Orders Only [place] [employer] [facility] at [address] [place] [address] Maude Harris NP Chronic heart failure with preserved ejection fraction (CMS/HCC) (HCC) (Primary Dx) 04/02/2024 Telephone [place] [employer] [facility] at [address] [place] [address] [place], [place] 04/01/2024 10:35 AM CDT Lab [address] Chronic heart failure with preserved ejection fraction (CMS/HCC) (HCC) 04/01/2024 9:45 AM CDT Office Visit [place] [employer] at [address] [place] [address] Maude Harris NP Chronic atrial fibrillation (HCC) (Primary Dx); Peripheral arterial disease (HCC); Chronic heart failure with preserved ejection fraction (CMS/HCC) (HCC); 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 03/25/2024 9:00 AM CDT Office Visit [facility] [address] [place] [address] [address] [place] [address] Klaus Deshpande MD Restless legs syndrome (Primary Dx); Essential tremor 03/19/2024 Telephone [facility] [place] [facility] [address] [facility] [address] [place] [address] Pepper Morgan MD covid and flu vaccinations 03/18/2024 Telephone [facility] [address] [place] [address] Phylicia Mota, RN MARIO appointment from Last 3 Months Allergies Active Allergy Reactions Criticality Noted Date Comments Amlodipine Swelling Medium Celecoxib Anaphylaxis High Ciprofloxacin Hcl Vomiting Low 01/06/2023 Duloxetine Fatigue Low 11/30/2020 Sleepiness, tiredness possibly related to 20 mg morning dose of this medicine discontinued 11/30/2020 Duloxetine Hcl Unknown 08/31/2023 Lisinopril Swelling Medium Scopolamine Mental status changes High 02/21/2017 Delirium postop after joint replacement due to this medicine Carbidopa-Levodopa Other (See comments) Low 020 Night hines Sulfa (Sulfonamide Antibiotics) Anaphylaxis High Trazodone Swelling Medium 03/11/2019 Tongue Medications cholecalcifero l (VITAMIN D-3) 2000 unit tablet Take 1 tablet (2,000 Units total) by mouth daily Active cetirizine (ZyrTEC) 10 mg tabletIndicati ons:Angioedema , subsequent encounter Take 1 tablet (10 mg total) by mouth nightly 90 tablet 3 12/09/19 23 Active albuterol HFA (Proventil HFA) 90 mcg/actuation inhalerIndicat ions:Mild persistent asthma, unspecified whether complicated Inhale 2 puffs every 6 (six) hours as needed for wheezing or shortness of breath 6.7 g 3 06/13/20 23 Active spironolactone (ALDACTONE) 25 mg tablet Take 1 tablet (25 mg total) by mouth daily 30 tablet 11 07/26/[address] (PROTONIX) 40 mg EC tabletIndicati ons:Treatment of Non-Bleeding Gastric Disorder Take 1 tablet (40 mg total) by mouth daily 90 tablet 2 01/11/20 24 Active ascorbic acid, vitamin C, 250 mg tablet,chewabl e Take 250 mg by mouth 3 (three) times a week Take with the iron 325 mg to ensure absorption Monday 90 tablet 1 01/12/20 24 Active carbamide peroxide (DEBROX) 6.5 % otic solutionIndica tions:Impacted Cerumen Administer 5 drops into each ear as needed for ear pain (monday right ear, monday left ear) 30 mL 1 02/08/20 24 025 Active apixaban (ELIQUIS) 2.5 mg tabletIndicati ons:Atrial fibrillation, chronic (CMS/HCC) (HCC) Take 1 tablet (2.5 mg total) by mouth 2 (two) times a day 60 tablet 03/08/20 24 Active polyethylene glycol (MIRALAX) 17 gram packetIndicati ons:constipati on Take 1 packet (17 g total) by mouth daily as needed for constipation Active acetaminophen (TYLENOL) 500 mg tablet Take 2 tablets (1,000 mg total) by mouth 2 (two) times a day as needed for pain Active fluticasone propion-salmet Ofelia (ADVAIR DISKUS) 100-50 mcg/dose diskus inhaler Inhale 1 puff 2 (two) times a day Rinse mouth with water after use. Do not swallow. Active furosemide (LASIX) 80 mg tablet Take 1 tablet (80 mg total) by mouth 2 (two) times a day Active propranoloL (INDERAL) 20 mg tabletIndicati ons:Essential Tremor Take 1 tablet (20 mg total) by mouth 2 (two) times a day with breakfast and lunch Active gabapentin (NEURONTIN) 100 mg capsule Take 1 capsule (100 mg total) by mouth 3 (three) times a day 90 capsule 5 03/25/20 24 025 Active Ferrocite 324 mg (106 mg iron) tablet Take 324 mg by mouth 3 (three) times a day 01/12/20 24 Active metOLazone (ZAROXOLYN) 5 mg tablet Take 1 tablet (5 mg total) by mouth 2 (two) times a week 15 tablet 3 04/04/20 24 Active atorvastatin (LIPITOR) 20 mg tablet Take 1 tablet (20 mg total) by mouth daily 30 tablet 11 04/11/20 24 025 Active vericiguat (Verquvo) 2.5 mg tablet Take 1 tablet (2.5 mg total) by mouth daily 14 tablet 04/16/20 24 Active allopurinoL (ZYLOPRIM) 100 mg tabletIndicati ons:Gouty arthritis of foot TAKE 2 TABLETS BY MOUTH EVERY DAY 180 tablet 1 05/14/20 24 Active empagliflozin (JARDIANCE) 10 mg tablet Take 1 tablet (10 mg total) by mouth daily for 7 days 7 tablet 06/06/20 24 Active pramipexole (MIRAPEX) 0.75 mg tabletIndicati ons:Restless legs syndrome TAKE 1 TABLET (0.75 MG TOTAL) BY MOUTH 2 TIMES A DAY 180 tablet 2 06/18/20 24 Active cyclobenzaprin e (FLEXERIL) 10 mg tablet Take 1 tablet (10 mg total) by mouth nightly as needed for muscle spasms 30 tablet 11/17/19 22 022 Discontinued empagliflozin (JARDIANCE) 10 mg tablet Take 1 tablet (10 mg total) by mouth daily 30 tablet 11 05/29/20 23 024 Discontinued pramipexole (MIRAPEX) 0.75 mg tabletIndicati ons:Restless legs syndrome Take 1 tablet (0.75 mg total) by mouth 2 (two) times a day 60 tablet 3 01/28/20 24 024 Discontinued Active Problems Problem Noted Date Diagnosed Date DANNY (acute kidney injury) 04/10/2024 Acute on chronic diastolic C HF (congestive heart failure) ([facility]) 03/15/2024 Chronic blood loss anemia 02/08/2024 CKD stage 3b, GFR 30-44 ml/min 01/11/2024 Prediabetes 01/11/2024 Bleeding hemorrhoids 01/11/2024 Acute lower GI bleeding 01/11/2024 Gouty arthritis of foot 11/24/2023 Esophageal dysphagia 11/24/2023 Skin tear of right forearm without complication 09/27/2023 Atherosclerosis of [place] ar teries of extremities with intermittent claudication, bilateral legs 07/31/2023 [place] of macula of both eyes 05/30/2023 Mild persistent asthma 03/13/2023 Assessment & Plan (06/13/2023 7:53 PM PAINT GRINDER): Controlled on advair and albuterol. No acute findings on exam, lungs clear. Will refill albuterol in office today. Assessment & Plan (04/10/2023 11:22 AM CDT): Admits breathing is much better after starting advair. Still using albuterol approx every other day. Lungs clear on exam today, no other acute findings. No recent PFTs in chart. CXR from 02/16 was unremarkable. Continue current regimen for now. Assessment & Plan (03/13/2023 1:09 PM CDT): No PFTs in chart. Intermittent expiratory wheezing on exam, lungs otherwise clear. No acute cardiac symptoms or findings on exam. CXR 3 weeks ago was unremarkable. 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 Activity as tolerated. Discussed PFTs and/or pulmonary referral in future if symptoms persist. Class 1 obesity with serious comorbidity and body mass index (BMI) of 34.0 to 34.9 in adult 02/07/2023 Gait disturbance 11/11/2022 Acute on chronic heart failu re with preserved ejection fraction (CMS/HCC) 07/25/2022 Assessment & Plan (06/13/2023 7:50 PM PAINT GRINDER): BP soft but stable in office today at 112/62 (56). Has gained 7lbs in the last week. C/o SOBOE, fatigue, and legs feel heavy . Has not taken felodipine in last week. Taking 20 lasix BID, 25 spironolactone BID, 2.5 metolazone every other day, and started 10 Jardiance 2 weeks ago. Last ECHO from 05/2022 was unremarkable. Last BnP from 02/16/23 was at baseline of 2300. Trace edema to legs, HR regular upon auscultation, no murmurs. Will increase Metolazone to daily and message dr. Arauz. Continue to monitor BP twice daily/weight daily and record. Call with update next week. ADDENDUM: Dr. Arauz ok with metolazone daily, repeat BMP and BnP in 2 days. Assessment & Plan (03/13/2023 1:06 PM CDT): C/o SOBOE for 2 weeks. No other acute symptoms or findings on exam, lungs with intermittent wheezes. Sees cardiology on regular basis, at recent visit they added jardiance. CXR 02/16/23 was unremarkable. ECHO 05/2022 unremarkable. Continue current medical regimen. See plan for asthma above. Assessment & Plan (02/06/2023 8:05 PM CDT): most recent ECHO in 05/2022 showed cardiomegaly and mild pulmonary HTN with EF of 70%. No more edema on exam today, no acute exam findings. Continue current regimen including plavix, spironolactone, lasix, felodipine, and propranolol. 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 ?? The right iliac system demonstrates regions of 50-75% stenosis limiting inflow to the right lower extremity. The right leg demonstrates complete occlusion of superficial femoral artery with reconstitution of the above knee popliteal at the bottom of the adductor canal. The popliteal is obscured by metallic artifact. 3 distal runoff vessels are patent. ?? The left iliac system demonstrates 50-75% stenosis at multiple sites limiting inflow to the left lower extremity. The left leg demonstrates complete occlusion of the superficial femoral artery from its origin with reconstitution of the above knee popliteal. The popliteal is obscured by metallic artifact. 3 patent distal runoff vessels are noted. ? THIS IS AN ELECTRONICALLY VERIFIED FINAL REPORT 11/09/2021 12:03 PM - Electronically signed by Saud Penny M.D. Assessment & Plan (11/20/2021 2:39 PM CDT): She has considerable peripheral arterial disease including a 50% stenosis of the infrarenal aorta, and total occlusion of the bilateral superficial femoral arteries with distal three vessel runoff. On exam, there is no acute ischemia. The left toes are slightly cooler to touch than the right, and capillary refill on the left side is about 3 seconds. However, there is no cyanosis. There is no gangrene or ulceration. She is on Eliquis for atrial fibrillation and post left hip replacement DVT prophylaxis. I do not see any immediate threat to her limbs. She can continue the moderate compression wraps to help with the local swelling in her left leg. We discussed how to wrap the legs in detail. Return in about one week. Shortness of breath 04/21/2021 Assessment & Plan (06/13/2023 7:51 PM PAINT GRINDER): More likely due to CHF and 7 lb weight gain in 1 week than COPD, see plan below. No acute findings on exam, lungs clear. Assessment & Plan (01/11/2023 3:04 PM CDT): Worse after recent hospitalization for colitis because the had stopped her diuretic for several days. Edema as noted above, lungs clear. No other acute findings on exam. ECHO from 05/2022 was unremarkable. BnP in September was 2200s. Has follow with cardiology in 3 days. Recheck BMP and Bnp today. Continue current regimen for now. Assessment & Plan (04/21/2021 4:26 PM CDT): Patient has persistent cough and shortness of breath, with reported associated wheezing. On exam she does appear to be slightly SOB, oxygen saturation was 97% however, and lungs were clear. We did do EKG to r/o any underlying ischemic cause, EKG shows atrial fibrillation that is rate controlled. We will do CXR to r/o any signs of pulmonary vascular congestion. We will also do BNP. We will also do 2D echo to look for any signs of LV dysfunction, wall motion abnormality of valvular disturbance in the setting of afib and shortness of breath. We will add lasix to her regimen to help with cough and shortness of breath. She has had a noted 6lb weight gain since her last visit and concern for volume overload. Cardiology referral will be made. Patient will f/u in 2 weeks or sooner if needed. Atrial fibrillation ([facility]) 04/21/2021 Assessment & Plan (02/06/2023 8:07 PM CDT): Controlled on plavix, propranolol, felodipine. HR regular on exam today, BP stable. No acute exam findings continue current regimen and follow with cardiology tomorrow. Assessment & Plan (04/21/2021 3:40 PM CDT): Patient had EKG completed that showed rate controlled atrial fibrillation. This may be contributing to her symptoms of cough and congestion. She will at this time continue BB for rate control. We will begin anticoagulation with eliquis 5mg BID. She will also be referred to cardiology for further evaluation. Risk/benefits of AC were discussed with patient and understanding verbalized. Iron deficiency anemia, unspecified 08/08/2019 Assessment & Plan (08/08/2019 10:35 AM PAINT GRINDER): Noted post-operatively. She has been on iron daily and is experiencing significant constipation. Instructed her to decrease iron dose to M, W, F and to increase her fluid intake. We will repeat CBC if H&H improved will stop iron and monitor. Bariatric surgery status 04/04/2017 Overview (04/04/2017): Hx gastroplasty by Dr. Raphael 1983 Knee joint replacement status, bilateral 017 Overview (04/04/2017): Left knee replacement January 2017 Spinal stenosis of lumbar re gion with neurogenic claudication 12/17/2016 Assessment & Plan (11/20/2021 2:40 PM CDT): We refilled her hydrocodone pending a follow up in pain management. Macular hole 05/04/2016 History of malignant melanoma 02/10/2015 Essential tremor 11/02/2013 Overview (09/22/2016): Familial tremor Assessment & Plan (04/10/2023 11:19 AM CDT): Controlled on current regimen, no acute findings on exam. Will send temporary refill of mirapex to [facility] until she can get mail order supply. Refilled gabapentin as well. Keep follows with neurology as scheduled. Assessment & Plan (02/26/2023 5:21 PM CDT): Chronic condition managed by Neurology. Taking mirapex, propranolol, and clonazepam as directed. C/o increased RLS, see plan above- will add Gabapentin 300mg nightly. Offered referral to different neurologist- patient refused. No acute findings on exam today, fine tremors to BUE. Continue current medication regimen. Avoid excessive caffeine use. Assessment & Plan (02/06/2023 8:00 PM CDT): No tremor on exam today, patient requesting refill on clonazepam. Last fill was 12/08 for #30 with 5 refills. Advised patient to call pharmacy. Assessment & Plan (08/08/2019 12:32 PM PAINT GRINDER): She has a known tremor, but has progressively gotten worse with a limited hand nutrition helper and difficulty holding a pen or fork. Will discuss additional treatment options with Dr. Morgan. Chronic GERD 11/02/2013 Overview (09/22/2016): Acid reflux Assessment & Plan (06/24/2019 9:31 AM PAINT GRINDER): Symptoms have improved with protonix. She has had no further issues. We will continue with present regimen. 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 11/02/2013 Overview (09/23/2016): Benign essential HTN Assessment & Plan (06/13/2023 7:49 PM PAINT GRINDER): BP soft but stable in office today at 112/62 (56). Has gained 7lbs in the last week. C/o SOBOE, fatigue, and legs feel heavy . Has not taken felodipine in last week. Taking 20 lasix BID, 25 spironolactone BID, 2.5 metolazone every other day, and started 10 Jardiance 2 weeks ago. Last ECHO from 05/2022 was unremarkable. Last BnP from 02/16/23 was at baseline of 2300. Trace edema to legs, HR regular upon auscultation, no murmurs. Will increase Metolazone to daily and message dr. Arauz. Continue to monitor BP twice daily/weight daily and record. Call with update next week. ADDENDUM: Dr. Arauz ok with metolazone daily, repeat BMP and BnP in 2 days. Assessment & Plan (04/21/2023 1:05 PM CDT): BP stable in office today on current therapy. No acute findings on exam. Continue current regimen and low salt diet. Assessment & Plan (04/10/2023 11:17 AM CDT): BP stable in office today on current therapy. No acute findings on exam. Continue current regimen and low salt diet. Assessment & Plan (03/13/2023 1:02 PM CDT): BP soft but stable in office today on current therapy. No acute findings on exam. Continue current regimen and low salt diet. Assessment & Plan (02/26/2023 5:18 PM CDT): BP stable in office today on current therapy. No acute findings on exam. Continue current regimen and low salt diet. Assessment & Plan (02/06/2023 8:06 PM CDT): BP stable in office today on current therapy. No acute findings on exam. Continue current regimen and low salt diet. Assessment & Plan (12/28/2022 2:36 PM CDT): BP soft but stable on exam today, likely related to dehydration from diarrhea, see plan for colitis above. Assessment & Plan (06/24/2019 12:50 PM PAINT GRINDER): Well controlled will continue present regimen. Restless legs syndrome 11/02/2013 Overview (09/23/2016): Restless legs syndrome (RLS) Assessment & Plan (04/21/2023 1:05 PM CDT): Worsening over 1 month, PMH of essential tremor noted also. Fine tremors noted to BUE, no other acute findings on exam. Will increase Gabapentin 300mg BID for 2 weeks, if still having problems she can got to TID. Continue pramipexole as rxd. Use good sleep hygiene. Follow in 1 month. Assessment & Plan (02/26/2023 5:25 PM CDT): Worsening over 1 month, PMH of essential tremor noted also. Fine tremors noted to BUE, no other acute findings on exam. Will add Gabapentin 300mg nightly to current regimen. Use good sleep hygiene. Follow in 1 month. Resolved Problems Problem Noted Date Diagnosed Date Resolved Date Hospital discharge follow-up 01/11/2023 01/11/2024 Assessment & Plan (01/11/2023 3:07 PM CDT): See hospital details as noted above. Med reconciliation completed in office today. Edema as noted above, no other acute findings on exam. Will repeat BMP, BnP today. Continue current medication regimen for now. Keep cardiology follow in 3 days. Diarrhea, unspecified type 12/28/2022 0 01/11/2023 Acute colitis 12/23/2022 03/13/2023 Assessment & Plan (01/11/2023 3:11 PM CDT): Stool studies in hospital were negative. Never took cipro as rxd because it made her nauseous but she did complete her course of flagyl. Admits diarrhea is gone at present. No acute findings on exam other than edema. Re-check BMP, BnP today. Continue current medication regimen. Assessment & Plan (12/28/2022 2:37 PM CDT): Colitis confirmed on CT at ER yesterday. They gave her flagyl and levaquin- which she did not take. Levaquin was unavailable at pharmacy and she has fear of adverse effects from flagyl. Labs unremarkable. No acute findings on exam but states she has had multiple watery diarrhea stools in last 24 hours. Will rx augmentin as directed. [place] diet, stay hydrated. Continue immodium as needed. ADDENDUM: patient states augmentin made symptoms worse, stop all abx and start budesonide as directed. Follow in 2 weeks. 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 The swelling intensified post recent left hip surgery. She was seen last week by Dr. Morgan and she was started on metolazone. She has been taking medication as prescribed and had good diuresis. Her weight is down 11lbs in the last week. Her sodium has also improved to 134. Her renal function remains stable. We will have her finish the rx of metolazone as edema still persistent. Encouraged gentle compression, elevation and low salt diet as well. She will follow up in 2 weeks with repeat BMP or sooner if needed. She will call with an update in one week. Assessment & Plan (11/20/2021 2:39 PM CDT): Since left hip replacement surgery 10 days ago, she has retained a lot of fluid. It is worse in the left leg than the right leg. She his gained over 20 lb, mostly fluid weight. It was so bad that she went to the emergency room two days ago. They did a venous Doppler which was negative for blood clot. She had moderate hyponatremia. We are adding a distal tubule diuretic to her regimen to hopefully increase the efficacy of the loop diuretic. She should take it about 30 minutes before the loop diuretic. We will repeat her BMP tomorrow. Follow-up in two weeks or sooner if needed. Allergic rhinitis due to allergen 10/14/2021 12/08/2022 Assessment & Plan (10/14/2021 1:51 PM CDT): Patient presents with cough and post nasal drip x 2 days with concern for underlying allergic rhinitis. She was tested for flu and covid given her cough and associated SOB with cough. They however, were negative. Symptom management encouraged. Patient is to call should symptoms worsen or persist. Cough 10/14/2021 01/24/2022 Assessment & Plan (10/14/2021 1:50 PM CDT): Patient presents with cough x 2 days associated with some wheezing and SOB when coughing. She had an albuterol inhaler at home she used which did help. On exam lungs are clear and oxygen saturation is 97%. Most likely cough is d/t allergic rhinitis. She was encouraged to continue with symptom management with fluids, flonase, antihistamine, and delysm if needed. She will be sent a refill on albuterol inhaler she is to call should symptoms worsen or persist. Angio-edema 09/15/2021 12/23/2022 Facial swelling 09/02/2021 01/24/2022 Assessment & Plan (09/02/2021 10:02 AM CDT): Patient presents today with recurrent facial swelling x 1 day. This time swelling is noted on the rt side of her face. She reports she will develop swelling that will last for days at a time. She has had recurrence over the last several years. She denies any associated respiratory distress, pain, or hives She is not on any medications that would be likely to contribute and she denies any new foods or soaps. Etiology remains uncertain. We did trial stopping her CCB, but that made little change. Given that we will do some testing to r/o a C1 esterase deficiency that may be contributing, suggestive of a hereditary angioedema. At this time patient encouraged to use a daily non-sedating anti-histamine and sleep with the head of the bed elevated. She will go to ER with worsening swelling or SOB. Primary osteoarthritis of left hip 08/24/2021 01/24/2022 Left facial swelling 08/11/2021 022 Assessment & Plan (08/11/2021 9:51 AM PAINT GRINDER): Patient presents with recurrent issues of left sided facial swelling. She states she will wake in the morning and the left side of the face and inside the mouth will feel swollen. She will use ice which helps with swelling some. There is concern that this is a dependent edema as she admits she does sleep on there left side. She denies any associated SOB and trouble swallowing with episodes. 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 She has a report of swelling while on norvasc and she currently is on felodipine, which she has tolerated well for years. She also is reporting bilateral LE edema in the day. Given that we will try holding the felodipine and see if that helps with swelling. She has upcoming follow up in 1.5 weeks can evaluate at that time. She will monitor BP between now and next visit and call should BP go above 140/90. If this does not change will consider checking C1 esterase and referral to bearing press machine operator. However, patient states she has done this in the past and w/u was benign. She will call or return sooner if needed. Chest congestion 01/08/2021 06/01/2021 Assessment & Plan (01/08/2021 11:49 AM CDT): Patient is reporting issues with cough and congestion, that have been persistent over the last few days. She reports she fell a little over a week ago while carrying a box and had pain and bruising after the fall. She went to urgent care and CXR was completed and negative for fracture. On exam today only mild chest wall tenderness and no bruising noted. Her lungs are clear and oxygen saturation normal. Given her c/o cough and congestion in the setting of recent fall we will do repeat CXR to r/o any signs of pneumonia. We will also do labs to look for any signs of anemia, leukocytosis or electrolyte disturbance in setting of recent fall. She was encouraged to increase fluids. She can continue with her Mucinex. She will also be sent refill on her albuterol inhaler that she can use for cough or shortness of breath. She is to call or go to ER with any worsening or persistent symptoms. Sinus bradycardia 11/30/2020 06/01/2021 Acute bacterial rhinosinusitis 06/02/2020 06/01/2021 Assessment & Plan (06/02/2020 11:07 AM PAINT GRINDER): Patient presents with congestion, purulent discharge, ear pain/pressure and PND most consistent with acute sinusitis. She reports she has been using sinus rinse, flonase and Muccinex OTC. COVID-19 rapid testing negative and no known COVID-19 exposure. She will continue quarantine until symptoms improving. She will begin antibiotic therapy and complete as prescribed. She will call with persistent or unresolved symptoms. MCC (current) use of n on-steroidal anti-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s (nsaid) 11/18/2019 06/01/2021 Constipation due to opioid therapy 11/18/2019 01/24/2022 Edema 08/08/2019 11/18/2019 Assessment & Plan (08/08/2019 10:37 AM PAINT GRINDER): Improved with lasix. We will repeat BMP to monitor renal function. She remains on aldactone which we will continue. She was encouraged to keep legs elevated while at rest and to avoid additional salt intake. If edema returns can prescribe lasix prn if renal function is stable Acute low back pain 08/08/2019 06/01/20 Assessment & Plan (08/08/2019 12:31 PM PAINT GRINDER): Most likely secondary to degenerative disc disease. Unable to evaluate patient ROM or reflexes d/t her antalgic gait and inability to get on exam table. We will do xray of the lumbar spine to evaluate for any acute process. Will begin tramadol for pain. She is to call if symptoms worsen or persist Bilateral leg edema 07/11/2019 11/18/19 Overview (07/24/2019): Status post right hip replacement 07/10/2019, history of bilateral knee replacements in the past, now has bilateral lower extremity edema. Primary osteoarthritis of right hip 03/27/2019 11/18/2019 Dizziness 10/03/2017 11/18/2019 Overview (10/09/2017): Heart monitor (-) September 2017 Conclusions: 1. Predominant rhythm is normal sinus rhythm. 2. Heart rate and rate variability is appropriate. 3. No prolonged pauses. 4. Supraventricular tachycardia runs are present lasting 3 beats and 5 beats. They were all asymptomatic. 5. Nothing significant noted during patient's symptom. ??Dr Saud Ayers 2017-10-09 16:41:50 CDT Insomnia, persistent 04/04/2017 023 Chronic pain disorder 04/04/20172022 Overview (04/04/2017): Successful bilateral knee replacement by Dr. Meier left knee December 2016. Flat arches with internal rotation of the ankles causes knock knee even after knee replacement. Low back pain also aggravated by the ankle problem and gait issues. Assessment & Plan (11/20/2021 2:38 PM CDT): She is having a lot of pain, especially in her lower back. She has chronic spinal stenosis. She is due to see pain management in about three weeks. This is a chronic pain but has gotten worse since her left hip replacement about 10 days ago. She is relatively immobile. She spends much of her day and night in a recliner. We sent in refills of her hydrocodone, risks of medication discussed. We recommended some local heat and massage. Follow-up with pain management. Assessment & Plan (06/24/2019 12:50 PM PAINT GRINDER): She has plans for rt hip replacement later this month. At this time will continue with aleve for pain. She chose not to pursue pain management. She will have labs, EKG and CXR completed pre-op as ordered by ortho. If no significant findings on testing she would be considered an acceptable surgical risk for planned procedure. Obesity (BMI 30-39.9) 04/04/20172019 History of basal cell carcinoma (BCC) 02/10/2015 06/01/2021 Excessive cerumen in ear canal 11/02/2013 10/01/2017 Overview (09/22/2016): Excessive cerumen in ear canal Osteoarthritis of knee 11/02/201304/04 Overview (09/23/2016): DJD (degenerative joint disease) of knee Transient insomnia 08/07/2013 0 Overview (09/22/2016): Transient insomnia Keratosis, senilis 08/30/2011 8 Immunizations Name Administration Dates Next Due COVID-19 mRNA (iWarda) 0.3 m L (30 mcg) vaccine (12 years and up) 03/24/2023 Influenza, Quad, Adjuvantate d, Intramuscular 03/10/2022 Influenza, Quadrivalent, Hig h Dose, Preservative Free, Intrr 03/24/2023,04/13/2021,03/31/2020 Influenza, Quadrivalent, Spl it, Intramuscular 04/04/2017,03/28/2016 Influenza, Split 05/18/2012 Influenza, Trivalent, Adjuva nted, Intramuscular 04/17/2019 Influenza, Trivalent, High D ose, Split, Preservative Free, Intramuscular 04/17/2019,03/12/2018,03/23/2015 Influenza, Trivalent, IM (MDV) 04/17/2015,2013 Influenza, Unspecified 03/19/2024,2022,03/10/2022,03/19,03/13/2018 Pfizer SARS-CoV-2 Monovalent Vaccination (12+ Yrs) PURPLE 03/14/2021,09/06/2020,08/15/2020 Pfizer Sars-Cov-2 Bivalent V accination (12+ YRS) 04/01/2022 Pneumococcal Conjugate PCV 13 02/18/2015 Pneumococcal Polysaccharide PPV23 04/26/2016, Tdap 08/23/2021,05/18/2011 ZOSTER Recombinant 02/23/2021,12/02/2020 Social History Tobacco Use Types Packs/Day Years Used Date Smoking Tobacco: Former Cigarettes 2 30 1 952 - 1982 Smokeless Tobacco: Never Tobacco Cessation:Counseling Given: Not Answered Alcohol Use Standard Drinks/Week Comments Not Currently 0 (1 standard drink = 0.6 oz pur e alcohol) [facility] Utilities Answer Date Recorded In the past 12 months has e [employer], gas, oil, or water Conjunct threatened to shut off services in your [...] often do you attend chur ch or bahai services? Never 04/11/2024 Do you belong to any clubs o r organizations such as gnosticist groups, unions, fraternal or athletic groups, or [...] place to sleep or slept in a retirement (including now)? No 07/24/2023 Housing Stability Vital [...] were you homeless or living in a retirement (including now)? No 04/11/2024 Personal Safety Answer [...] on file Legal Sex Female 4:33 AM PAINT GRINDER Gender Identity Not on file Sexual Orientation Not on file Occupation Industry Job Start Date Job End Date retired Not on file Not on file Not on file Last Filed Vital Signs Vital Sign Reading Time Taken Comments Blood Pressure 113/76 04/29/2024 1:02 PM PAINT GRINDER Pulse 80 04/29/2024 1:02 PM PAINT GRINDER Temperature 36.4 ??C (97.6 ??F) 04/11/2024 8:30 AM CD T Respiratory Rate 18 04/16/2024 10:56 AM CDT Oxygen Saturation 92% 04/11/2024 8:30 AM CDT Inhaled Oxygen Concentration - - Weight 80.3 kg (177 lb) 04/29/2024 1:02 PM PAINT GRINDER Height 152.4 cm (5') 04/29/2024 1:02 PM PAINT GRINDER Body Mass Index 34.57 04/29/2024 1:02 PM PAINT GRINDER Plan of Treatment Not on file Goals Goal Patient Goal Type Associated Problems Recent Progress Patient-Stated? Author [facility] Improving( 3:34 PM CDT) No Domitila Garay, RN Note: Patient will establish a comfort-function goal and identify the pain level that will allow the patient to perform desired activities and achieve an acceptable quality of life. Medical Devices Implanted Type Area Vessel Captain Device Identifier Shelf Expiration Date Model / Serial / Lot Depuy Orthopaed[employer] Inc [id number] North Hero 52mm Sector Hip Shell Acetabular Gription Sterile Latex Free - [id number] Implanted:Qty: 1 on 07/10/2019 by Puma Mckenzie MD at [facility] Right: Hip [employer] 05/18/2029 [id number] / / [id number] Dep[employer] [id number] North Hero 52mm 36mm Hip Neutral Liner Acetabular Altrx Sterile Latex Free - [id number] Implanted:Qty: 1 on 07/10/2019 by Puma Mckenzie MD at [facility] Right: Hip [employer] 04/18/2024 [id number] / / [id number] [employer] 1217-25-500 North Hero 6.5mm 25mm Acetabular Cancellous Screw Bone Sterile - [id number] Implanted:Qty: 1 on 07/10/2019 by Puma Mckenzie MD at [facility] Right: Hip [employer] 12/16/2028 1217-25-500 / / [id number] Dep[employer] [id number] Articul/Ernesto 36mm Cementless Hip +1.5mm 12/14 Taper Head Femoral Latex Free - [id number] Implanted:Qty: 1 on 07/10/2019 by Puma Mckenzie MD at [facility] Right: Hip [employer] 03/18/2024 [id number] / / [id number] [employer] [id number] Actis Collared Hip 12/14 6 Standard Offset Stem Femoral - [id number] Implanted:Qty: 1 on 07/10/2019 by Puma Mckenzie MD at [facility] Right: Hip [employer] 06/18/2029 [id number] / / [id number] [employer] North Hero 6.5mm 35mm Acetabular Cancellous Screw Bone Sterile 1217-35-500 - [id number] Implanted:Qty: 1 on 11/01/2021 by Puma Mckenzie MD at [facility] Left: Hip [employer] 08/17/2031 1217-35-500 / / [id number] Dep[employer] [id number] North Hero 52mm 36mm Hip Neutral Liner Acetabular Altrx Sterile Latex Free - [id number] Implanted:Qty: 1 on 11/01/2021 by Puma Mckenzie MD at [facility] Left: Hip [employer] 08/16/2026 [id number] / / [id number] Dep[employer] North Hero 52mm Sector Hip Shell Acetabular Gription Sterile Latex Free [id number] - [id number] Implanted:Qty: 1 on 11/01/2021 by Puma Mckenzie MD at [facility] Left: Hip [employer] [id number] 08/17/2031 [id number] / / [id number] Dep[employer] [id number] Actis Collar Hip 7 High Offset Stem Femoral - [id number] Implanted:Qty: 1 on 11/01/2021 by Puma Mckenzie MD at [facility] Left: Hip [employer] [id number] 08/17/2031 [id number] / / [id number] [employer] Articul/Ernesto 36mm Cementless Hip +1.5mm 12/14 Taper Head Femoral Latex Free [id number] - [id number] Implanted:Qty: 1 on 11/01/2021 by Puma Mckenzie MD at [facility] Left: Hip [employer] 09/16/2026 [id number] / / [id number] Medtronic Inc Protege Gps Exprt 9mm .079in 60mm 80cm Otw Delivery System Self Deee26-63-81-41 - [id number] Implanted:Qty: 1 on 02/18/2022 by Stalin Arauz MD at [facility] [employer] Inc 10/22/2024 [id number] / / [id number] [employer] 4U Marshall Angio-Seal Evolution 6fr Vascular Closure [id number] - [id number] Implanted:Qty: 1 on 02/18/2022 by Stalin Arauz MD at [facility] [employer] [facility] 06/18/2022 [id number] / / [id number] ideacts innovations Medical Inc Zilver Ptx 6mm 120mm 125cm Drug Elute Otw Delivery System [id number] - [id number] Implanted:Qty: 1 on 02/18/2022 by Stalin Arauz MD at [facility] 10/21/2023 [id number] / / [id number] [employer] Inc Zilver Ptx 6mm 100mm 125cm Otw Preload Delivery System Self [id number] - [id number] Implanted:Qty: 1 on 02/18/2022 by Stalin Arauz MD at [facility] 11/09/2023 [id number] / / [id number] Medtronic [employer] Everflex Entrust 8mm 60mm 120cm Self Expand Triaxial Low Profile - [id number] Implanted:Qty: 1 on 02/18/2022 by Stalin Arauz MD at [facility] [employer] 07/26/2024 [id number] / / [id number] [facility] Angio-Seal Evolution 6fr Vascular Closure [id number] - [id number] Implanted:Qty: 1 on 03/24/2022 [facility] 05/18/2022 [id number] / / [id number] Procedures Procedure Name Priority Date/Time Associated Diagnosis Comments KS ARTHROCENTESIS ASPIR&/INJ MAJOR JT/BURSA W/O US Routine 04/29/2024 1:00 PM PAINT GRINDER Osteoarthritis of right glenohumeral joint Complete tear of right rotator cuff, unspecified whether traumatic TRANSTHORACIC ECHO (TTE) COMPLETE W DOPPLER/CF WO CONTRAST Routine 04/11/2024 9:08 AM CDT CREATININE, URINE, RANDOM Routine 04/11/2024 5:37 AM CDT UREA NITROGEN, URINE, RANDOM Routine 04/11/2024 5:37 AM CDT LIPID PANEL Add-On 04/11/2024 5:22 AM CDT EGFR Routine 04/11/2024 5:22 AM CDT DIFFERENTIAL AUTO Routine 04/11/2024 5:2 2 AM CDT MAGNESIUM Routine 04/11/2024 5:22 AM CDT COMPREHENSIVE METABOLIC PANEL Routine 04/11/2024 5:22 AM CDT CBC WITH AUTO DIFFERENTIAL Routine 04/11/2024 5:22 AM CDT TROPONIN T HIGH-SENSITIVITY 6-HOUR Timed 04/10/2024 9:04 PM CDT TROPONIN T HIGH-SENSITIVITY 4-HR Timed 04/10/2024 7:00 PM CDT TROPONIN T HIGH-SENSITIVITY 2-HOUR Timed 04/10/2024 5:29 PM CDT XR CHEST 1 VIEW ED 04/10/2024 4:17 PM CDT EGFR STAT 04/10/2024 3:05 PM CDT DIFFERENTIAL AUTO STAT 04/10/2024 3:0 5 PM CDT TROPONIN T HIGH-SENSITIVITY SERIES (BASELINE, 2HR, 4HR, 6HR) STAT 04/10/2024 3:05 PM CDT PRO B-TYPE NATRIURETIC PEPTIDE STAT 04/10/2024 3:05 PM CDT COMPREHENSIVE METABOLIC PANEL STAT 04/10/2024 3:05 PM CDT CBC WITH AUTO DIFFERENTIAL STAT 04/10/2024 3:05 PM CDT ECG 12-LEAD STAT 04/10/2024 2:47 PM CDT EGFR Routine 04/10/2024 9:52 AM CDT Chronic heart failure with preserved ejection fraction (CMS/HCC) (HCC) BASIC METABOLIC PANEL Routine 04/10/2024 9:52 AM CDT Chronic heart failure with preserved ejection fraction (CMS/HCC) (HCC) PRO B-TYPE NATRIURETIC PEPTIDE Routine 04/10/2024 9:52 AM CDT Chronic heart failure with preserved ejection fraction (CMS/HCC) (HCC) EGFR Routine 04/01/2024 10:39 AM CDT Chronic heart failure with preserved ejection fraction (CMS/HCC) (HCC) BASIC METABOLIC PANEL Routine 04/01/2024 10:39 AM CDT Chronic heart failure with preserved ejection fraction (CMS/HCC) (HCC) PRO B-TYPE NATRIURETIC PEPTIDE Routine 04/01/2024 10:39 AM CDT Chronic heart failure with preserved ejection fraction (CMS/HCC) (HCC) HEMOGLOBIN A1C Routine 01/25/2024 10:56 AM CDT Prediabetes ALBUMIN CREATININE RATIO, URINE Routine 01/25/2024 10:50 AM CDT Prediabetes from Last 3 Months or Most Recently Relevant to Health Maintenance Results * KS ARTHROCENTESIS ASPIR&/INJ MAJOR JT/BURSA W/O US (04/29/2024 1:00 PM PAINT GRINDER) Narrative Jadyn Hobson PA - 04/29/2024 1:00 PM PAINT GRINDER Jadyn Hobson PA ? 04/29/2024 ??1:32 PM Large Joint (Hip, Knee, Shoulder) Injection: R glenohumeral Performed by: Jadyn Hobson PA Authorized by: Jadyn Hobson PA ?? Large Joint Injection/Aspiration: ??Consent Given by: ??Patient ??Site marked: the procedure site was marked ?Timeout: prior to procedure the correct patient, procedure, and site was verified ?Verbal consent obtained: Yes ?? Supporting Documentation: ??Indications: ??Pain Procedure Details: ??Location: ??Shoulder ??Site: ??R glenohumeral ??Prep: patient was prepped and draped in usual sterile fashion ?Prep: patient was prepped using a clean technique ?Needle Size: ??22 G ??Approach: ??Posterior ??Ultrasound guided: No ?Fluroscopic guidance: No ?Medications: ??3 mL lidocaine 20 mg/mL (2 %); 80 mg methylPREDNISolone acetate 80 mg/mL ??Patient tolerance: ??Patient tolerated the procedure well with no immediate complications us Jadyn BRUCE IN CLINIC/BEDSIDE RADHA IRBY Final Result * TRANSTHORACIC ECHO (TTE) COMPLETE W DOPPLER/CF WO CONTRAST (04/11/2024 9:08 AM CDT) Anatomical Region Laterality Modality Ultrasound 04/11/2024 9:04 AM CDT Narrative 04/11/2024 2:28 PM CDT [address] [address] Echocardiogram Report ADDENDUM Patient Name: TESS BENEDICT I : [id number] Study Date: 04/11/2024 9:04:49 AM Gender: F 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 Current interpretive data was last revised 2018. Testing performed by: [facility], [address] [place] [address], [place] [address] Urine 04/11/2024 5:37 AM CDT 04/11/2024 8:49 AM CDT us Lencho Thomson MD LAB URINE ORDERABLES Final Resu lt Performing Organization Address [facility] de Phone Number [facility] ([place]) 1 [facility] [place] [employer] [place] [address] * Creatinine, urine, random (04/11/2024 5:37 AM CDT) Creatinine Ur 25.6 mg/dL Comment: Interpretive Data No reference range established. Current interpretive data was last revised 2018. Urine 04/11/2024 5:37 AM CDT 04/11/2024 5:40 AM CDT Narrative [facility] ([place]) - 04/11/2024 6:02 AM CDT No normal range us Lencho Thomson MD LAB URINE ORDERABLES Final Resu lt Performing Organization Address [facility] de Phone Number [facility] ([place]) 1 [facility] [place] [employer] [place] [address] * (ABNORMAL) eGFR (04/11/2024 5:22 AM CDT) [...] LAB BLOOD ORDERABLES Farzana hernandez Result [facility] ([place]) 1 [facility] [place] [address] * (ABNORMAL) Differential, auto (04/11/2024 5:22 AM [...] 5:22 AM CDT 04/11/2024 6:23 AM CDT Eri BRUCE LAB BLOOD ORDERABLES Farzana l Result [facility] ([place]) 1 [facility] of [facility] [place], [place] [id number] * (ABNORMAL) CBC with auto differential (04/11/2024 5:22 AM CDT) WBC 9.1 3.8 - 9.9 K/cumm Hgb [...] ([place]) MCHC 32.4 32.3 - 35.7 g/dL [facility] ([place]) RDW CV 15.9(H) 11.1 - 14.9 % [facility] ([place]) RDW SD 49.6(H) 35.7 - 48.1 fL [facility] ([place]) NRBC abs 0.00 0.00 - 0.01 K/cumm [facility] ([place]) Blood 04/11/2024 5:22 AM CDT 04/11/2024 6:23 AM CDT Lencho Thomson MD LAB BLOOD ORDERABLES Final Resu lt Performing Organization Address City/[facility]/ZIP Co de Phone Number [facility] ([place]) 1 [facility] [place] [address] * Magnesium (04/11/2024 5:22 AM CDT) Magnesium 2.0 1.4 - 2.5 mg/dL Blood 04/11/2024 5:22 AM CDT 04/11/2024 6:31 AM CDT Lencho Thomson MD LAB BLOOD ORDERABLES Final Resu lt Performing Organization Address [facility] Co de Phone Number [facility] ([place]) 1 [facility] [place] [employer] [place] [address] * (ABNORMAL) Lipid panel (04/11/2024 5:22 AM [...] on 2018. HDL 39(L) >=40 mg/dL [facility] [place]) Comment: Interpretive Data Ages < or = [...] on 2018. Chol/HDL ratio 4 RONIT [facility] ([place]) Blood 04/11/2024 5:22 AM CDT 04/11/2024 10:02 AM CDT Narrative [facility] ([place]) - 04/11/2024 10:18 AM CDT May run on this am draw us Jailyn Castro MD LAB BLOOD ORDERABLES Final Resu lt [facility] ([place]) 1 [facility] [place] [address] * (ABNORMAL) Comprehensive metabolic panel (04/11/2024 5:22 [...] MD LAB BLOOD ORDERABLES Final Resu lt Performing Organization Address [facility] Co de Phone Number [facility] ([place]) 1 [facility] [place] [address] * (ABNORMAL) Troponin T high-sensitivity 6-hour (04/10/2024 9:04 PM CDT) Trop T hs 23(H) <=14 ng/L Comment: Interpretive Data For further hscTnT resources including the diagnostic algorithm and an aid in interpretation, copy and paste this link: [email or web address] Current Interpretive Data last revised 2020. Trop T hs delta -3 ng/L [facility] ([place]) Trop T hs interp Insignificant [facility] ([place]) Blood 04/10/2024 9:04 PM CDT 04/10/2024 9:07 PM CDT us Hai Cook NP LAB BLOOD ORDERABLES Final Result Performing Organization Address [facility] Co de Phone Number [facility] ([place]) 1 [facility] [place] [address] * (ABNORMAL) Troponin T high-sensitivity 4-hour (04/10/2024 7:00 PM CDT) Trop T hs 23(H) <=14 ng/L Comment: Interpretive Data For further hscTnT resources including the diagnostic algorithm and an aid in interpretation, copy and paste this link: [email or web address] Current Interpretive Data last revised 2020. Trop T hs delta -3 ng/L [facility] ([place]) Trop T hs interp Insignificant [facility] ([place]) Blood 04/10/2024 7:00 PM CDT 04/10/2024 7:03 PM CDT us Hai Cook AIRCRAFT STEEL FABRICATOR LAB BLOOD ORDERABLES Final Result Performing Organization Address [facility] Co de Phone Number CHIDI FANG ([place]) 1 [facility] [place] [employer] [place] [address] * (ABNORMAL) Troponin T high-sensitivity 2-hour (04/10/2024 5:29 PM CDT) Trop T hs 23(H) <=14 ng/L Comment: Interpretive Data For further hscTnT resources including the diagnostic algorithm and an aid in interpretation, copy and paste this link: https://nrl.testcatalog.org/show/hsTrop Current Interpretive Data last revised 2020. Trop T hs delta -3 ng/L [facility] ([place]) Trop T hs interp Insignificant [facility] ([place]) Blood 04/10/2024 5:29 PM CDT 04/10/2024 5:31 PM CDT us Hai Cook NP LAB BLOOD ORDERABLES Final Result Performing Organization Address [facility] Co de Phone Number CHIDI FANG ([place]) 1 [facility] [place] [address] * XR Chest 1 Vw Portable (04/10/2024 [...] PM T: ??04/10/2024 5:48 PM Report ID: [id number] Reading Location: ??[id number] Procedure Note Zoraida Parks MD - 04/10/2024 [...] Zoraida Parks M.D. AT: AT Report ID: [id number] Reading Location: [id number] Eri BRUCE IMG XR PROCEDURES Final R esult * (ABNORMAL) Troponin T high-sensitivity series (baseline, 2hr, 4hr, 6hr) (04/10/2024 3:05 PM CDT) Trop T hs 26(H) <=14 ng/L Comment: Interpretive Data For further hscTnT resources including the diagnostic algorithm and an aid in interpretation, copy and paste this link: https://nrl.testcatalog.org/show/hsTrop Current Interpretive Data last revised 2020. Blood 04/10/2024 3:05 PM CDT 04/10/2024 3:11 PM CDT Hai Cook AIRCRAFT STEEL FABRICATOR LAB BLOOD ORDERABLES Final Result CHIDI FANG ([place]) 1 [facility] [place] [address] * (ABNORMAL) eGFR (04/10/2024 3:05 PM CDT) [...] LAB BLOOD ORDERABLES Final Result [facility] ([place]) 1 [facility] [place] [address] * (ABNORMAL) Differential, auto (04/10/2024 3:05 PM [...] Neutrophil pct 82.3 % [facility] ([place]) Comment: Interpretive [...] Eosinophil pct 3.0 % [facility] ([place]) Comment: Interpretive Data Percent cell count reference ranges are not reported, since discordance with absolute values may lead to misinterpretation of CBC data. Current Interpretive Data was last revised on 2017. Basophil pct 0.6 % CHIDI FANG ([place]) Comment: Interpretive Data Percent cell count reference ranges are not reported, since discordance with absolute values may lead to misinterpretation of CBC data. Current Interpretive Data was last revised on 2017. Blood 04/10/2024 3:05 PM CDT 04/10/2024 3:11 PM CDT us Hai Cook NP LAB BLOOD ORDERABLES Final Result CHIDI FANG ([place]) 1 [facility] [place] [address] * (ABNORMAL) Pro B-type natriuretic peptide (04/10/2024 [...] 04/10/2024 3:11 PM CDT us Hai Cook AIRCRAFT STEEL FABRICATOR LAB BLOOD ORDERABLES Final Result [facility] ([place]) 1 [facility] Department of Laboratories [place], [place] [id number] * (ABNORMAL) CBC with auto differential (04/10/2024 3:05 PM CDT) WBC 9.7 3.8 - 9.9 K/cumm Hgb 12.2 11.9 - 15.5 g/dL [facility] ([place]) Hct 38.6 35.6 - 45.5 % [facility] ([place]) Plt 334 150 - 400 K/cumm [facility] ([place]) MPV 9.0(L) 9.1 - 12.3 fL [facility] ([place]) RBC 4.40 3.90 - 5.20 M/cumm [facility] ([place]) MCV 87.7 81.3 - 96.4 fL [facility] ([place]) MCH 27.7 27.1 - 33.3 pg [facility] ([place]) MCHC 31.6(L) 32.3 - 35.7 g/dL [facility] ([place]) RDW CV 15.8(H) 11.1 - 14.9 % [facility] ([place]) RDW SD 49.8(H) 35.7 - 48.1 fL [facility] NRBC abs 0.00 0.00 - 0.01 K/cumm [facility] ([place]) Blood 04/10/2024 3:05 PM CDT 04/10/2024 3:11 PM CDT us Hai Cook NP LAB BLOOD ORDERABLES Final Result [facility] ([place]) 1 [facility] Department [place] [address] * (ABNORMAL) Comprehensive metabolic panel (04/10/2024 3:05 PM CDT) Sodium 134(L) 135 - 145 mmol/L Potassium, pl 4.3 3.3 - 4.9 mmol/L [facility] ([place] Chloride 92(L) 97 - 110 mmol/L [facility] ([place]) CO2 33(H) 22 - 32 mmol/L [facility] ([place]) Anion gap 10 2 - 15 mmol/L [facility] ([place] BUN 74(H) 6 - 25 mg/dL [facility] ([place]) Creatinine 1.75(H) 0.60 - 1.10 mg/dL [facility] ([place]) Glucose 97 70 - 199 mg/dL [facility] ([place]) Comment: Interpretive Data Fasting [...] BLOOD ORDERABLES Final Result Performing Organization Address City/[facility] de Phone Number [facility] ([place]) 1 [facility] [place] [address] * ECG 12 lead (04/10/2024 2:47 PM CDT) 04/10/2024 2:47 PM CDT Narrative [facility] - 04/12/2024 10:54 AM CDT Vent Rate: 68 bpm RR Interval: 872 msec KS Interval: 0 msec QRS Duration: 73 msec QT Interval: 397 msec QTC Interval: 415 msec P-R-T [place]: 83208 - 65 - 33 degrees IMPRESSION: ATRIAL FIBRILLATION LOW QRS VOLTAGE IN PRECORDIAL LEADS ??[QRS DEFLECTION < 1.0 mV IN CHEST LEADS] ABNORMAL RHYTHM ECG No change compared to prior EKG Electronically Signed By: Eric Bashir MD [facility] Hai Cook NP ECG ORDERABLES Final Resul t Performing Organization Address [facility] Co de Phone Number [facility]AF [employer] [facility] * (ABNORMAL) eGFR (04/10/2024 9:52 AM CDT) [...] CDT 04/10/2024 10:39 AM CDT Maude Harris AIRCRAFT STEEL FABRICATOR LAB BLOOD ORDERABLES Fi nal Result [facility] ([place]) 1 [facility] [place] [address] * (ABNORMAL) Pro B-type natriuretic peptide (04/10/2024 [...] 9:52 AM CDT 04/10/2024 10:39 AM CDT us Maude Harris NP LAB BLOOD ORDERABLES Fi nal Result RACHELLVIN BEL ([place]) 7 [facility] [place] [address] * (ABNORMAL) Basic metabolic panel (04/10/2024 9:52 AM CDT) Sodium 133(L) 135 - 145 mmol/L Potassium, pl 3.6 3.3 - 4.9 mmol/L [facility] ([place]) Chloride 89(L) 97 - 110 mmol/L [facility] ([place]) CO2 33(H) 22 - 32 mmol/L [facility] ([place]) Anion gap 12 2 - 15 mmol/L [facility] ([place]) BUN 76(H) 6 - 25 mg/dL [facility] ([place]) Creatinine 1.82(H) 0.60 - 1.10 mg/dL [facility] ([place]) Glucose 86 70 - 199 mg/dL [facility] ([place]) Comment: Interpretive Data Fasting glucose >/= [...] 2022. Calcium 9.6 8.5 - 10.3 mg/dL [facility] ([place]) Blood 04/10/2024 9:52 AM CDT 04/10/2024 10:39 AM CDT us Maude Harris NP LAB BLOOD ORDERABLES Fi nal Result [facility] ([place]) 1 [facility] [place] [address] * (ABNORMAL) eGFR (04/01/2024 10:39 AM CDT) eGFR 26(L) >=60 mL/min/1. 73 m2 Comment: Interpretive Data [...] interpretive data was last reviewed 2021. Blood 04/01/2024 10:3 9 AM CDT 04/01/2024 1:47 PM CDT us aMude Harris AIRCRAFT STEEL FABRICATOR LAB BLOOD ORDERABLES Fi nal Result Performing Organization Address City/State/[facility] Co de Phone Number RACHELLKXU KVQ ([place]) 1 [facility] [place] [address] * (ABNORMAL) Pro B-type natriuretic peptide (04/01/2024 10:39 AM CDT) NT-proBNP 3,035(H) <=450 pg/mL Comment: Interpretive Comments: A. Dyspnea [...] Heart J. 2006:27:330-337. 2. Hayden RW, Iman AM. J. AM Sahra Cardiol: Cardiovasc Imag. 2009;2: 216- 225. Interpretive Data Last Revised Date: 2018. Blood 04/01/2024 10:3 9 AM CDT 04/01/2024 1:46 PM CDT us Maude Harris AIRCRAFT STEEL FABRICATOR LAB BLOOD ORDERABLES Fi nal Result [facility] ([place]) 1 [facility] Department [place] [address] * (ABNORMAL) Basic metabolic panel (04/01/2024 10:39 AM CDT) Sodium 128(L) 135 - 145 mmol/L Potassium, pl 3.2(L) 3.3 - 4.9 mmol/L [facility] ([place]) Chloride 81(L) 97 - 110 mmol/L [facility] ([place]) CO2 34(H) 22 - 32 mmol/L [facility] ([place]) Anion gap 13 2 - 15 mmol/L [facility] ([place]) BUN 78(H) 6 - 25 mg/dL [facility] ([place]) Creatinine 1.85(H) 0.60 - 1.10 mg/dL [facility] ([place]) Glucose 96 70 - 199 mg/dL [facility] ([place]) Comment: Interpretive Data Fasting glucose >/= [...] interpretive data was last revised 2022. Calcium 9.8 8.5 - 10.3 mg/dL [facility] ([place]) Blood 04/01/2024 10:3 9 AM CDT 04/01/2024 1:47 PM CDT Maude Harris AIRCRAFT STEEL FABRICATOR LAB BLOOD ORDERABLES nal Result [facility] ([place]) 1 [facility] [place] [address] * (ABNORMAL) Hemoglobin A1c (01/25/2024 10:56 AM CDT) Hgb A1C 5.8(H) 4.0 - 5.6 % Estimated Average Glucose 120 mg/dL [facility] ([place]) Comment: The ADA recommends reporting an estimated Average Glucose (eAG) with all Hemoglobin A1c results using the equation derived from a study of 507 normal and diabetic adults. ??Minority populations were underrepresented and children were not included. ?? (Diabetes Care 31:0719-2102, 2008). ??The eAG is not equivalent to a fasting glucose. Blood 01/25/2024 10:5 6 AM CDT 01/25/2024 11:27 AM CDT Pepper Morgan MD LAB BLOOD ORDERABLES Final Result Performing Organization Address City/[facility] Co de Phone Number CHIDI FANG ([place]) 1 [facility] [place] [address] * Albumin Creatinine Ratio, Urine (01/25/2024 10:50 AM CDT) Albumin Ur <12.0 mg/L Comment: Interpretive Data No reference range established. Current interpretive data was last revised 2018. Testing performed by: [address], [address] Creatinine Ur 11.1 mg/dL CHIDI FANG ([place]) Comment: Interpretive Data No reference range established. Current interpretive data was last revised 2018. Testing performed by: [address] [address] Albumin Creatinine Ratio, Ur See Comment 1 - 29 [facility]ANG ([place]) Comment: Unable to calculate Testing performed by: [address] [address] Urine 01/25/2024 10:5 0 AM CDT 01/25/2024 1:57 PM CDT Pepper Morgan MD LAB URINE ORDERABLES Final Result Performing Organization Address [facility] de Phone Number CHIDI FANG ([place]) 1 [facility] [place] [address] from Last 3 Months or Most Recently Relevant to Health Maintenance Insurance MEDICARE [facility] AETNA [facility] MEDICARE MEDICARE [facility] MEDICARE [facility] [place] [place] [address] MEDICARE [facility] Advance Directives For more information, please contact: [phone] Documents on File Type Date Recorded Patient Nicker And Breaker Expl anation ADVANCE DIRECTIVE 05/14/2019 1:34 PM DNR ADVANCE DIRECTIVE 11/08/2010 POWER [employer] * Full Code (Latest Code Status on File) Date Activated Date Inactivated Comments 03/15/2024 3:30 PM 03/16/2024 9:41 PM * Full Code Date Activated Date Inactivated Comments 07/22/2023 2:41 PM 07/25/2023 5:59 PM * Full Code Date Activated Date Inactivated Comments 06/24/2023 4:08 PM 06/26/2023 7:33 PM * Full Code Date Activated Date Inactivated Comments 06/14/2023 10:45 PM 06/17/2023 3:32 PM * Full Code Date Activated Date Inactivated Comments 12/28/2022 7:42 PM 12/30/2022 3:56 PM Care Teams General I Farmworker Relationship Specialty Start Date End Date Pepper Morgan MD PCP - General 09/16/16 Hank Garibay MD [address] [facility] [address] [place] [address] Surgeon Orthopedic Surgery 03/27/17 Jacky Murry MD [address] [facility] [address] [place] [address] Ophthalmology 03/27/17 Puma Mckenzie MD [address] [facility] [address] [place] [address] Surgeon Orthopedic Surgery 07/11/19 Neha Jackson, PT Physical Therapist Physical Therapy 12/01/21 Stalin Arauz MD [address] [facility] [address] [place] [address] Consulting Physician Cardiology 12/08/22 Tiffany Rojas PA [address] [facility] [address] [place] [address] Gastroenterology 12/30/22 Klaus Deshpande MD [address] [facility] [address] [place] [address] Consulting Physician Neurology 06/13/23
--- OUTSIDE RECORDS SUMMARY | 2024-06-18 18:47 | XMS_ITS | Encounter Summary ---
Author Organization [facility] Address [address] [place] [address] Care Team Providers Care Boatbuilder Supervisor Name Role Phone Pepper Morgan MD Primary Care Provider [phone] Hank Garibay MD Unavailable [phone] Jacky Murry MD Unavailable [phone] Puma Mckenzie MD Unavailable [phone] Neha Jackson PT Unavailable Unavailable Stalin Arauz MD Unavailable [phone] Tiffany Rojas Unavailable [phone] Klaus Deshpande MD Unavailable [phone] Reason for Visit * Reason Onset Date Comments CARE BODY AND FRAME MAN MARIO IP 04/12/2024 Encounter Details Date Type Department Care Team (Late st Contact Info) Description 04/12/2024 Telephone [facility] [place] [facility] [address] [place] [address] Pepper Morgan MD [address] [place] [address] CARE BODY AND FRAME MAN MARIO IP Social History Tobacco Use Types Packs/Day Years Used Date Smoking Tobacco: Former Cigarettes 2 30 1 952 - 1981 Smokeless Tobacco: Never Alcohol Use Standard Drinks/Week Comments Not Currently 0 (1 standard drink = 0.6 oz pur e alcohol) [facility] Utilities Answer Date Recorded In the [...] often do you attend chur ch or lutheran services? Never 04/11/2024 Do you belong to [...] place to sleep or slept in a care home (including now)? No 07/24/2023 Housing Stability Vital Sign Answer Neville e Recorded In the last 12 months, was t here a time when you were not able to pay the mortgage or rent on time? No 04/11/2024 In the past 12 months, how m any times have you moved where you were living? 0 04/11/2024 At any time in the past 12 m [facility], were you homeless or living in a care home (including now)? 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 States if I cannot see Dr. Morgan I don't want to see anyone. Told patient that Dr. RANGEL is out several months and she does need to be seen. Patient refused. * Telephone Encounter - Jacqueline Plasencia - 04/15/2024 9:34 AM CDT Patient tentatively scheduled for 04/22 at 9:00 with MARKETING STRATEGY MANAGER Sabine. States that the date/time may change after she calls Dr. Arauz's office. * Telephone Encounter - Radha Pascual LPN - 04/12/2024 8:35 AM CDT This Medicare patient had an IP visit at [facility] on 04/10/2024 - 04/11/2024 (21 hours) for DANNY (acute kidney injury). PCP appointment was not able to be scheduled at this time due to no availability on PCP schedule. Please have someone with the office call patient directly to schedule on or before 04/18/2024 to meet Medicare's 7-day post IP follow up. Thank you! documented in this encounter Plan of Treatment Not on file documented as of this encounter Goals Goal Patient Goal Type Associated Problems Recent Progress Patient-Stated? Author BH-Pain Behavioral Health Improving( 3:34 PM CDT) Domitila Gaston RN Note: Patient will establish a comfort-function goal and identify the pain level that will allow the patient to perform desired activities and achieve an acceptable quality of life. documented as of this encounter Visit Diagnoses Not on filedocumented in this encounter Care Teams Boatbuilder Supervisor Relationship Specialty Start Date End Date Pepper Morgan MD PCP - General 09/16/16 Hank Garibay MD [address] [place] [address] [place] [address] Surgeon Orthopedic Surgery 03/27/17 Jacky Murry MD [address] [facility] [address] [place] [address] Ophthalmology 03/27/17 Puma Mckenzie MD [address] [facility] [address] [place] [address] Surgeon Orthopedic Surgery 07/11/19 Neha Jackson, PT Physical Therapist Physical Therapy 12/01/21 Stalin Arauz MD [address] [facility] [address] [place] [address] Consulting Physician Cardiology 12/08/22 Tiffany Rojas PA [address] [facility] [address] [place] [address] Gastroenterology 12/30/22 Klaus Deshpande MD [address] [facility] [address] [place] [address] Consulting Physician Neurology 06/13/23 documented as of this encounter
--- OUTSIDE RECORDS SUMMARY | 2024-06-18 18:47 | XMS_ITS | Encounter Summary ---
Author Organization [facility] Address [address] [place] [address] Care Team Providers Care Epic Ambulatory Specialists Name Role Phone Pepper Morgan MD Primary Care Provider + [phone] Hank Garibay MD Unavailable [phone] Jacky Murry MD Unavailable [phone] Puma Mckenzie MD Unavailable [phone] Neha Jackson PT Unavailable Unavailable Stalin Arauz MD Unavailable [phone] Tiffany Rojas Unavailable [phone] Klaus Deshpande MD Unavailable [phone] Encounter Details Date Type Department Care Team (Late st Contact Info) Description 04/04/2024 Orders Only [employer] Tester at [address] [place] [address] Maude Harris, NOEL [address] [place] [address] [address] [place] [address] Chronic heart failure with preserved ejection fraction (CMS/HCC) (HCC) (Primary Dx) Social History Tobacco Use Types Packs/Day Years Used Date Smoking Tobacco: Former Cigarettes 2 30 1 952 - 1981 Smokeless Tobacco: Never Alcohol Use Standard Drinks/Week Comments Not Currently 0 (1 standard drink = 0.6 oz pur e alcohol) [facility] Utilities Answer Date Recorded In the past 12 months has th e electric, gas, oil, or water company threatened to shut off services in your home? No 07/24/2023 Social Connection and Isolat ion Panel [NHANES] Answer Date Recorded In a typical week, how many times do you talk on the phone with family, friends, or neighbors? More than three times a week 07/24/2023 How often do you get togethe r with friends or relatives? Three times a week 07/24/2023 How often do you attend chur ch or denominational services? Never 07/24/2023 Do you belong to any clubs o r organizations such as islam groups, unions, fraternal or athletic groups, or school groups? No 07/24/2023 How often do you attend meet ings of the clubs or organizations you belong to? Never 07/24/2023 Are you , , di vorced, , never , or living with a partner? 07/24/2023 AUDIT-C Answer Date Recorded Q1: How often do you have a drink containing alc ohol? Monthly or less 12/28/2022 Q2: How many drinks containi ng alcohol do you have on a typical day when you are drinking? 1 or 2 12/28/2022 Q3: How often do you have si x or more drinks on one occasion? Never 12/28/2022 Overall Financial Resource Strain (CARDIA) Answe r Date Recorded How hard is it for you to pa y for the very basics like food, housing, medical care, and heating? Not very hard 07/24/2023 PHQ-2 Answer Date Recorded PHQ-2 Total Score (If total score is 3 or more points, staff should administer the PHQ-9) 1 07/13/2023 Hunger Vital Sign Answer Date Recorded Within the past 12 months, y ou worried that your food would run out before you got the money to buy more. Never true 12/30/19 23 Within the past 12 months, t he food you bought just didn't last and you didn't have money to get more. Never true 12/29/2022 PRAPARE - Transportation Answer Date Re corded In the past 12 months, has l ack of transportation kept you from medical appointments or from getting medications? No 10/2023 In the past 12 months, has l ack of transportation kept you from meetings, work, or from getting things needed for daily living? No 07/24/2023 Housing Stability Vital Sign Answer [...] in a detention (including now)? No 07/24/2023 Personal Safety Answer Date Recorded Have you ever been in or are you currently in a harmful physical or emotional relationship or is someone making you feel afraid or unsafe? 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 documented as of this encounter Results * (ABNORMAL) Pro B-type natriuretic peptide (04/10/2024 [...] 04/10/2024 10:39 AM CDT us Maude Harris OUTSOLES CHANNEL OPENER LAB BLOOD ORDERABLES Fi nal Result [facility] ([place]) 1 [facility] Department [place] [address] * (ABNORMAL) Basic metabolic panel [...] ([place]) Glucose 86 70 - 199 mg/dL [facility] ([place]) [...] 2022. Calcium 9.6 8.5 - 10.3 mg/dL [facility] ([place]) Blood 04/10/2024 9:52 AM CDT 04/10/2024 10:39 AM CDT Maude Harris OUTSOLES CHANNEL OPENER LAB BLOOD ORDERABLES Fi nal Result [facility] ([place]) 1 [facility] Department [place] [address] documented in this encounter Visit Diagnoses Diagnosis Chronic heart failure with preserved ejection fraction (CMS/HCC) (HCC)- Primary documented in this encounter Care Teams Epic Ambulatory Specialists Relationship Specialty Start Date End Date Pepper Morgan MD PCP - General 09/16/16 Hank Garibay MD [address] [facility] [address] [place] [facility] [address] [place] [address] Surgeon Orthopedic Surgery 03/27/17 Jacky Murry MD [address] [facility] [address] [place] [facility] [address] [place] [address] Ophthalmology 03/27/17 Puma Mckenzie MD [address] [facility] [address] [place] [facility] [address] [place] [address] Surgeon Orthopedic Surgery 07/11/19 Neha Jackson, PT Physical Therapist Physical Therapy 12/01/21 Stalin Arauz MD [address] [facility] [address] [place] [address] Consulting Physician Cardiology 12/08/22 Tiffany Rojas PA [address] [facility] [address] [place] [address] Gastroenterology 12/30/22 Klaus Deshpande MD [address] [facility] [address] [place] [address] Consulting Physician Neurology 06/13/23 documented as of this encounter
--- OUTSIDE RECORDS SUMMARY | 2024-06-18 18:47 | XMS_ITS | Encounter Summary ---
Author Organization [facility] Healthcare Address [address] [place] [address] Care Team Providers Care Grocery Sacker Name Role Phone Pepper Morgan MD Primary Care Provider + [phone] Hank Garibay MD Unavailable [phone] Jacky Murry MD Unavailable [phone] Puma Mckenzie MD Unavailable [phone] Neha Jackson PT Unavailable Unavailable Stalin Arauz MD Unavailable [phone] Tiffany Rojas Unavailable [phone] Klaus Deshpande MD Unavailable [phone] Reason for Referral * Procedure (Routine) - Authorized Specialty Diagnoses / Procedures Referred By Contac t Referred To Contact Diagnoses Osteoarthritis of right glenohumeral joint Complete tear of right rotator cuff, unspecified whether traumatic Procedures Large Joint (Hip, Knee, Shoulder) Injection: R glenohumeral Jadyn Hobson PA [address] [place] [address] [place] [address] Phone: tel: fax: [facility] Referral ID Status Reason Start Date Expiration Date V isits Requested Visits Authorized [id number] Authorized 04/29/2024 05/29/2025 1 1 ERS HELPER Reason for Visit * Reason Comments Follow-up Encounter Details Date Type Department Care Team (Anmol st Contact Info) Description 04/29/2024 1:00 PM MOTHERS HELPER Office Visit [facility] Orthopedics and Sports Medicine [address] [facility] [address] [place] [id number] Jadyn Hobson PA [address] [place] [address] [address] [place] [address] Osteoarthritis of right glenohumeral joint (Primary Dx); Complete tear of right rotator cuff, unspecified whether traumatic Social History Tobacco Use Types Packs/Day Years Used Date Smoking Tobacco: Former Cigarettes 2 30 1 1981 Smokeless Tobacco: Never Alcohol Use Standard Drinks/Week Comments Not Currently 0 (1 standard drink = 0.6 oz pur e alcohol) [facility] Utilities Answer Date Recorded In the past 12 months has [employer], gas, oil, or water [employer] threatened to shut off services in your [...] week 04/11/2024 How often do you attend [facility] or denominational services? Never 04/11/2024 Do you belong to [...] place to sleep or slept in a skilled nursing (including now)? No 07/24/2023 Housing Stability Vital Sign Answer Neville e Recorded In the last 12 months, was t here a time when you were not able to pay the mortgage or rent on time? No 04/11/2024 In the past 12 months, how m any times have you moved where you were living? 0 04/11/2024 At any time in the past 12 m [facility], were you homeless or living in a skilled nursing (including now)? No 04/11/2024 Personal Safety Answer [...] on file Legal Sex Female 4:33 AM MOTHERS HELPER Gender Identity Not on file Sexual Orientation Not on file Occupation Industry Job Start Date Job End Date retired Not on file Not on file Not on file documented as of this encounter Last Filed Vital Signs Vital Sign Reading Time Taken Comments Blood Pressure 113/76 04/29/2024 1:02 PM MOTHERS HELPER Pulse 80 04/29/2024 1:02 PM MOTHERS HELPER Temperature - - Respiratory Rate - - Oxygen Saturation - - Inhaled Oxygen Concentration - - Weight 80.3 kg (177 lb) 04/29/2024 1:02 PM MOTHERS HELPER Height 152.4 cm (5') 04/29/2024 1:02 PM MOTHERS HELPER Body Mass Index 34.57 04/29/2024 1:02 PM MOTHERS HELPER documented in this encounter Progress Notes * Jadyn Hobson PA - 04/29/2024 1:00 PM CSTAssociated Order(s): Large Joint (Hip, Knee, Shoulder) Injection: R glenohumeral Post-Procedure Diagnose(s): Osteoarthritis of right glenohumeral joint; Complete tear of right rotator cuff, unspecified whether traumatic Injection Follow Up Patient is here for follow up on their right shoulder glenohumeral osteoarthritis and rotator cuff tear. Patient had an injection 01/29/2024 which did provide relief. Patient denies any new injuries/trauma. Would like to proceed with repeat corticosteroid injection today. Inspection of joint reveals no erythema, ecchymosis, signs of trauma or infection. Skin is well intact. Crepitus present upon range of motion, and pain is noted at end range. Grossly neurovascularly intact extremities. right glenohumeral injection was administered today. Patient tolerated this procedure well. Post injection instructions provided. Patient may follow up in 3 months for repeat injection, as symptoms necessitate. All questions were answered appropriately. Patient verbalized full understanding and is in agreement with this treatment plan. BP 113/76 Pulse 80 Ht 152.4 cm (5') Wt 80.3 kg (177 lb) LMP (LMP Unknown) BMI 34.57 kg/m?? Diagnosis Plan 1. Osteoarthritis of right glenohumeral joint Large Joint (Hip, Knee, Shoulder) Injection: R glenohumeral 2. Complete tear of right rotator cuff, unspecified whether traumatic Large Joint (Hip, Knee, Shoulder) Injection: R glenohumeral Large Joint (Hip, Knee, Shoulder) Injection: R glenohumeral Performed by: Jadyn Hobson PA Authorized by: Jadyn Hobson PA Large Joint Injection/Aspiration: Consent Given by: Patient Site marked: the procedure site was marked Timeout: prior to procedure the correct patient, procedure, and site was verified Verbal consent obtained: Yes Supporting Documentation: Indications: Pain Procedure Details: Location: Shoulder Site: R glenohumeral Prep: patient was prepped and draped in usual sterile fashion Prep: patient was prepped using a clean technique Needle Size: 22 G Approach: Posterior Ultrasound guided: No Fluroscopic guidance: No Medications: 3 mL lidocaine 20 mg/mL (2 %); 80 mg methylPREDNISolone acetate 80 mg/mL Patient tolerance: Patient tolerated the procedure well with no immediate complications TEO Carmichael ERS HELPER documented in this encounter Plan of Treatment [...] Procedure Name Priority Date/Time Associated Diagnosis Comments [place] ARTHROCENTESIS ASPIR&/INJ MAJOR JT/BURSA W/O US Routine 04/29/2024 1:00 PM MOTHERS HELPER Osteoarthritis of right glenohumeral joint Complete tear of right rotator cuff, unspecified whether traumatic documented in this encounter Results * OH ARTHROCENTESIS ASPIR&/INJ MAJOR JT/BURSA W/O US (04/29/2024 1:00 PM MOTHERS HELPER) Narrative Jadyn Hobson PA - 04/29/2024 1:00 PM MOTHERS HELPER Jadyn Hobson PA ? 04/29/2024 ??1:32 PM [...] the procedure well with no immediate complications Result [facility] Jadyn BRUCE IN CLINIC/BEDSIDE RADHA IRBY Final Result documented in this encounter Visit Diagnoses Diagnosis Osteoarthritis of right glenohumeral joint- Primary Complete tear of right rotator cuff, unspecified whether traumatic documented in this encounter Administered Medications Inactive Administered Medications - up to 3 most recent administrations Medication Order MAR Action Action Date Dose Rate Site lidocaine (XYLOCAINE) 20 mg/mL (2 %) injection 3 mL 3 mL, One-Time Injection, Starting on Mon04/29/24 at 1300, For 1 dose, Indications: Administration of Local AnesthesiaIndications:Admini stration of Local Anesthesia Given 04/29/2024 1:00 PM MOTHERS HELPER 3 mL Right Shoulder methylPREDNISolone acetate (DEPO-medrol) injection 80 mg 80 mg, intra-articular, One-Time Injection, Starting on Mon04/29/24 at 1300, For 1 doseIndications:Osteoarthrit is of right glenohumeral joint,Complete tear of right rotator cuff, unspecified whether traumatic Given 04/29/2024 1:00 PM MOTHERS HELPER 80 mg Right Shoulder documented in this encounter Care Teams Grocery Sacker Relationship Specialty Start Date End Date Pepper Morgan MD PCP - General 09/16/16 Hank Garibay MD [address] [facility] [address] [place] [address] Surgeon Orthopedic Surgery 03/27/17 Jacky Murry MD [address] [facility] [address] [place] [address] Ophthalmology 03/27/17 Puma Mckenzie MD [address] [facility] [address] [place] [facility] [address] [place] [address] Surgeon Orthopedic Surgery 07/11/19 Neha Jackson, PT Physical Therapist Physical Therapy 12/01/21 Stalin Arauz MD [address] [facility] [address] [place] [address] Consulting Physician Cardiology 12/08/22 Tiffany Rojas PA [address] [facility] [address] [place] [address] Gastroenterology 12/30/22 Klaus Deshpande MD [address] [facility] [address] [place] [address] Consulting Physician Neurology 06/13/23 documented as of this encounter
--- OUTSIDE RECORDS SUMMARY | 2024-06-18 18:47 | XMS_ITS | Clinical Summary ---
Author Organization [facility] Address [address] [place] [address] Care Team Providers Care Nutrition Instructor Name Role Phone Pepper Morgan MD Primary Care Provider + [phone] Hank Garibay MD Unavailable [phone] Jacky Murry MD Unavailable [phone] Puma Mckenzie MD Unavailable [phone] Neha Jackson PT Unavailable Unavailable Stalin Arauz MD Unavailable [phone] Tiffany Rojas PA Unavailable [phone] Klaus Deshpande MD Unavailable [phone] Allergies Active Allergy Reactions Criticality Noted Date [...] chronic diastolic C HF (congestive heart failure) ([facility]) 03/15/2024 Chronic blood loss anemia 02/08/2024 CKD stage 3b, GFR 30-44 ml/min 01/11/2024 Prediabetes 01/11/2024 Bleeding hemorrhoids 01/11/2024 Acute lower GI bleeding 01/11/2024 Gouty arthritis of foot 11/24/2023 Esophageal dysphagia 11/24/2023 Skin tear of right forearm without complication 09/27/2023 Atherosclerosis of [place] ar teries of extremities with intermittent claudication, bilateral legs 07/31/2023 [place]en of macula of both eyes 05/30/2023 Mild persistent asthma 03/13/2023 Assessment & Plan (06/13/2023 7:53 PM RISK MANAGEMENT MANAGER): Controlled on advair and albuterol. No acute [...] heart failu re with preserved ejection fraction ([facility]) 07/25/2022 Assessment & Plan (06/13/2023 7:50 PM RISK MANAGEMENT MANAGER): BP soft but stable in office today [...] propranolol. 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 Atrial fibrillation (CMS/HCC) 04/21/2021 Assessment & Plan (02/06/2023 8:07 PM [...] 08/08/2019 Assessment & Plan (08/08/2019 10:35 AM RISK MANAGEMENT MANAGER): Noted post-operatively. She has been on iron [...] pharmacy. Assessment & Plan (08/08/2019 12:32 PM RISK MANAGEMENT MANAGER): She has a known tremor, but has progressively gotten worse with a limited hand jointer machine and difficulty holding a pen or fork. Will discuss additional treatment options with Dr. Morgan. Chronic GERD 11/02/2013 Overview (09/22/2016): Acid reflux Assessment & Plan (06/24/2019 9:31 AM RISK MANAGEMENT MANAGER): Symptoms have improved with protonix. She has had no further issues. We will continue with present regimen. 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 11/02/2013 Overview (09/23/2016): Benign essential HTN Assessment & Plan (06/13/2023 7:49 PM RISK MANAGEMENT MANAGER): BP soft but stable in office today [...] above. Assessment & Plan (06/24/2019 12:50 PM RISK MANAGEMENT MANAGER): Well controlled will continue present regimen. Restless [...] 24 hours. Will rx augmentin as directed. [place] diet, stay hydrated. Continue immodium as needed. ADDENDUM: patient states augmentin made symptoms worse, stop all abx and start budesonide as directed. Follow in 2 weeks. Parkinson's disease (tremor, stiffness, slow motion, unstable posture) 01/24/2022 12/08/2022 Lymphedema 12/06/2021 01/24/2022 Tremor 12/06/2021 04/10/2023 Overview (01/24/2022): Cogwheel tremor right hand greater than left consistent with Parkinson's treating for her restless leg with Mirapex with relief prison (current) use of opiate analgesic 11/30/2021 01/24/2022 [...] 022 Assessment & Plan (08/11/2021 9:51 AM RISK MANAGEMENT MANAGER): Patient presents with recurrent issues of left [...] consider checking C1 esterase and referral to rewriter. However, patient states she has done this [...] 06/01/2021 Assessment & Plan (06/02/2020 11:07 AM RISK MANAGEMENT MANAGER): Patient presents with congestion, purulent discharge, ear pain/pressure and PND most consistent with acute sinusitis. She reports she has been using sinus rinse, flonase and Muccinex OTC. COVID-19 rapid testing negative and no known COVID-19 exposure. She will continue quarantine until symptoms improving. She will begin antibiotic therapy and complete as prescribed. She will call with persistent or unresolved symptoms. prison (current) use of n on-steroidal anti-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s (nsaid) 11/18/2019 06/01/2021 Constipation due to opioid therapy 11/18/2019 01/24/2022 Edema 08/08/2019 11/18/2019 Assessment & Plan (08/08/2019 10:37 AM RISK MANAGEMENT MANAGER): Improved with lasix. We will repeat BMP to monitor renal function. She remains on aldactone which we will continue. She was encouraged to keep legs elevated while at rest and to avoid additional salt intake. If edema returns can prescribe lasix prn if renal function is stable Acute low back pain 08/08/2019 06/01/20 Assessment & Plan (08/08/2019 12:31 PM RISK MANAGEMENT MANAGER): Most likely secondary to degenerative disc disease. [...] management. Assessment & Plan (06/24/2019 12:50 PM RISK MANAGEMENT MANAGER): She has plans for rt hip replacement [...] (09/22/2016): Transient insomnia Keratosis, senilis 08/30/2011 8 Encounters Date Type Department Care Team Description 05/07/2024 3:45 PM RISK MANAGEMENT MANAGER Telemedicine [facility] [address] [place] [address] Pepper Morgan MD Infected abrasion of right lower extremity, initial encounter (Primary Dx); Acute on chronic heart failure with preserved ejection fraction (CMS/HCC) ([facility]); CKD stage 3b, GFR 30-44 ml/min ([facility]); Immunization counseling 05/07/2024 Telephone [facility] [address] [place] [address] Pepper Morgan MD Bleeding/Bruising 04/30/2024 Orders Only [facility] at [address] [place] [address] Stalin Arauz MD CKD stage 3b, GFR 30-44 ml/min (HCC) (Primary Dx) 04/30/2024 Telephone [facility] at [address] [place] [address] Hai Dalton MA 04/29/2024 1:00 PM RISK MANAGEMENT MANAGER Office Visit [facility] Medical [facility] [address] [facility] [address] [place] [address] Jadyn Hobson PA Osteoarthritis of right glenohumeral joint (Primary Dx); Complete tear of right rotator cuff, unspecified whether traumatic 04/16/2024 11:30 AM CDT Office Visit [facility] at [address] [place] [address] Maude Harris NP Chronic atrial fibrillation (HCC) (Primary Dx); Chronic heart failure with preserved ejection fraction (CMS/HCC) (HCC); Atherosclerosis of [place] arteries of extremities with rest pain, right leg (HCC); 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; Atherosclerosis of [place] arteries of extremities with intermittent claudication, bilateral legs (HCC); Paroxysmal atrial fibrillation (CMS/HCC) (HCC) 04/15/2024 Telephone [facility] [address] [place] [address] Hai Dalton MA 04/12/2024 Telephone [facility] [address] [facility] [address] [place] [address] Pepper Morgan MD CARE OVERAGE 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 DAMAGE 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 MARIO IP 04/12/2024 MARIO IP Outreach [facility] [address] [place] [address] Radha Pascual LPN 04/10/2024 4:01 PM CDT - 04/11/2024 1:51 PM CDT Emergency [address] [address] Edwina Parish MD Kim, Eileen H., MD DANNY (acute kidney injury) (HCC) (Primary Dx); Acute on chronic congestive heart failure, unspecified heart failure type (HCC); CKD stage 3b, GFR 30-44 ml/min (HCC) Discharge Disposition: Discharge to home or self care 04/10/2024 9:40 AM CDT Lab [facility] [address] [place] [address] Chronic heart failure with preserved ejection fraction (CMS/HCC) (HCC) 04/04/2024 Orders Only [facility] at [address] [address] Maude Harris NP Chronic heart failure with preserved ejection fraction (CMS/HCC) (HCC) (Primary Dx) 04/02/2024 Telephone [facility] at [address] [address] [place], [place] 04/01/2024 10:35 AM CDT Lab [facility] [address] [place], [place] Chronic heart failure with preserved ejection fraction (CMS/HCC) (HCC) 04/01/2024 9:45 AM CDT Office Visit [facility] at [address] [address] Maude Harris NP Chronic atrial fibrillation (HCC) (Primary Dx); Peripheral arterial disease (HCC); Chronic heart failure with preserved ejection fraction (CMS/HCC) (HCC); 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 03/25/2024 9:00 AM CDT Office Visit [facility] [address] [facility] [address] [place] [address] Klaus Deshpande MD Restless legs syndrome (Primary Dx); Essential tremor 03/19/2024 Telephone [facility] [address] [facility] [address] [place] [address] Pepper Morgan MD covid and flu vaccinations 03/18/2024 Telephone [facility] [address] [facility] [address] [place] [address] Phylicia Mota, RN MARIO appointment from Last 3 Months Immunizations Name Administration Dates Next Due COVID-19 mRNA ([employer]) 0.3 m L (30 mcg) vaccine (12 [...] PPV23 04/26/2016, Tdap 08/23/2021,05/18/2011 ZOSTER Recombinant 02/23/2021,12/02/2020 Surgical History Surgery Date Site/Laterality Comments BREAST BIOPSY 06/19/1994 - 06/18/1995 Breast biopsy KNEE ARTHROSCOPY 06/19/2002 - 06/18/2003 Arthroscopy knee CHOLECYSTECTOMY 06/19/1991 - 06/18/1992 Cholecystectomy HAND SURGERY 06/19/1975 - 06/18/1976 arm surgery on the left, they removed all the lymph nodes on that side. OTHER SURGICAL HISTORY 06/19/1991 - 06/18/1992 strangulated hernia: hernia repair OTHER SURGICAL HISTORY 06/19/2002 - 06/18/2003 Cancer, basal Cell: resection with skin graft KNEE ARTHROSCOPY Arthroscopy knee HERNIA REPAIR Hernia repair REPLACEMENT TOTAL KNEE 02/07/[address] Meier BARIATRIC SURGERY 06/19/1983 - 06/18/1984 gastroplasty FLUORO GUIDED INJECTION HIP RIGHT 04/08/2019 Right TOTAL HIP ARTHROPLASTY 06/19/2019 - 07/19/2019 Right The successful right hip replacement Dr. Mckenzie [place] FLUORO GUIDED INJECTION HIP LEFT 01/28/2021 Left REPLACEMENT TOTAL KNEE Right TOTAL HIP ARTHROPLASTY 11/01/[address] Mckenzie, [facility]. Medical History Medical History Date Comments Hx Other Medical 1991 strangulated he rnia Superficial basal cell carcinoma 2003 Cancer, basal Cell Malignant melanoma (HCC) Maligna nt melanoma; Comments: APO 01/13/2014 - Hx Other Medical back pain; Comm ents: APO 01/13/2014 - Hx Other Medical melanoma surger y; Comments: APO 01/13/2014 - Hx Other Medical gastroplasty; C omments: APO 01/13/2014 - Right carpal tunnel syndrome Obesity Heel spur, unspecified laterality Arthritis of ankle Fibrocystic breast Menopause Left foot pain 03/1999 ? gout 4, not currently para 3 miss 1 Tobacco use 1-2ppd x 35yrs q uit 07- Hx of rheumatic fever Joint pain 04/2002 Basal cell carcinoma of nose 09/2008 Restless leg Hypertension GERD (gastroesophageal reflux disease) PONV (postoperative nausea a nd vomiting) Motion sickness Arrhythmia A-fibrillation CHF (congestive heart failur e) (CMS/HCC) (HCC) Cough DVT (deep venous thrombosis) (CMS/HCC) (HCC) 1976 upper left arm near elbow--- Allergic rhinitis Lymphedema 12/06/2021 Family History Medical History Relation Name Comments Abdominal Aortic Aneurysm Father COPD Father Cancer Other 1 Family history of Cancer, unknown; Arthritis Other 2 Family history of Arthritis; Relation Name Status Comments Father Other 1 Other 2 Social History Tobacco Use Types Packs/Day Years Used Date Smoking Tobacco: Former Cigarettes 2 30 1 952 - 1981 Smokeless Tobacco: Never Tobacco Cessation:Counseling Given: [...] often do you attend chur ch or taoism services? Never 04/11/2024 Do you belong to any clubs o r organizations such as advent groups, unions, fraternal or athletic groups, or [...] place to sleep or slept in a residential (including now)? No 07/24/2023 Housing Stability Vital Sign Answer Neville e Recorded In the last 12 months, was t here a time when you were not able to pay the mortgage or rent on time? No 04/11/2024 In the past 12 months, how m any times have you moved where you were living? 0 04/11/2024 At any time in the past 12 m [place], were you homeless or living in a residential (including now)? No 04/11/2024 Personal Safety Answer [...] on file Legal Sex Female 4:33 AM RISK MANAGEMENT MANAGER Gender Identity Not on file Sexual Orientation Not on file Occupation Industry Job Start Date Job End Date retired Not on file Not on file Not on file Obstetrics History Last Filed Vital Signs Vital Sign Reading Time Taken Comments Blood Pressure 113/76 04/29/2024 1:02 PM RISK MANAGEMENT MANAGER Pulse 80 04/29/2024 1:02 PM RISK MANAGEMENT MANAGER Temperature 36.4 ??C (97.6 ??F) 04/11/2024 8:30 AM CD T Respiratory Rate 18 04/16/2024 10:56 AM CDT Oxygen Saturation 92% 04/11/2024 8:30 AM CDT Inhaled Oxygen Concentration - - Weight 80.3 kg (177 lb) 04/29/2024 1:02 PM RISK MANAGEMENT MANAGER Height 152.4 cm (5') 04/29/2024 1:02 PM RISK MANAGEMENT MANAGER Body Mass Index 34.57 04/29/2024 1:02 PM RISK MANAGEMENT MANAGER Plan of Treatment Health Maintenance Due Date Last Done Comments Hepatitis B Screening 11/24/1953 Covid-19 Vaccine (2023-2 5 season) 2024 03/24/2023, 04/01/2022, 01/11/2022, Additional history exists Depression Screening 07/13/2024 07/13/2023, 07/13/2023, 12/28/2022, Additional history exists Well Visit 65+ 07/13/2024 07/13/2023, 05/20, 05/31/2021, Additional history exists Hemoglobin A1C 07/27/2024 01/25/2024, 05/0 02/2022, 08/19/2021, Additional history exists Foot Exam 08/16/2024 08/17/2023 Dilated Eye Exam 10/16/2024 10/17/2023 Albumin Creatinine Ratio, Urine 01/24/2025 Fall Risk Assessment 04/11/2025 04/11/2024, 07/13/2023, 06/08/2022, Additional history exists Lipid Panel 04/11/2025 04/11/2024, 02/0 08/2023, 06/15/2023, Additional history exists eGFR 04/11/2025 04/11/2024, 03/20, 04/10/2024, Additional history exists DTaP/Tdap/Td Vaccine (3 - Td or Tdap) 08/24/2031 08/23/2021, 05/18/2011 Pneumococcal vaccine 65+ Completed 016, 02/18/2015, 05/17/2002 Zoster Vaccine Completed 02/23/2021, 12/02/2020 Influenza Vaccine Completed 03/19/2024, , 03/24/2023, Additional history exists Goals Goal Patient Goal Type Associated Problems Recent Progress Patient-Stated? Author BH-Pain Behavioral Health Improving( 3:34 PM CDT) Domitila Gaston, RN Note: Patient will establish a comfort-function goal and identify the pain level that will allow the patient to perform desired activities and achieve an acceptable quality of life. Medical Devices Implanted Type Area Operating Room Assistant Device Identifier Shelf Expiration Date Model / Serial / Lot [employer]uy Orth[employer] Inc [id number] [place] 52mm Sector Hip Shell Acetabular Gription Sterile Latex Free - [id number] Implanted:Qty: 1 on 07/10/2019 by Puma Mckenzie MD at [facility] Right: Hip [employer] 05/18/2029 [id number] / / [id number] [employer] [id number] [place] 52mm 36mm Hip Neutral Liner Acetabular Altrx Sterile Latex Free - [id number] Implanted:Qty: 1 on 07/10/2019 by Puma Mckenzie MD at [facility] Right: Hip [employer] 04/18/2024 [id number] / / [id number] Dep[employer] Inc [id number] [place] 6.5mm 25mm Acetabular Cancellous Screw Bone Sterile - [id number] Implanted:Qty: 1 on 07/10/2019 by Puma Mckenzie MD at [facility] Right: Hip [employer] 12/16/2028 1217--500 / / [id number] [employer] [id number] Articul/Ernesto 36mm Cementless Hip +1.5mm 12/14 Taper Head Femoral Latex Free - [id number] Implanted:Qty: 1 on 07/10/2019 by Puma Mckenzie MD at [facility] Right: Hip [employer] 03/18/2024 [id number] / / [id number] [employer] [id number] Actis Collared Hip 12/14 6 Standard Offset Stem Femoral - [id number] Implanted:Qty: 1 on 07/10/2019 by Puma Mckenzie MD at [facility] Right: Hip [employer] 06/18/2029 [id number] / / [id number] [employer] [place] 6.5mm 35mm Acetabular Cancellous Screw Bone Sterile 1217-35-500 - [id number] Implanted:Qty: 1 on 11/01/2021 by Puma Mckenzie MD at [facility] Left: Hip [employer] 08/17/2031 1217-35-500 / / [id number] [employer] [id number] [place] 52mm 36mm Hip Neutral Liner Acetabular Altrx Sterile Latex Free - [id number] Implanted:Qty: 1 on 11/01/2021 by Puma Mckenzie MD at [facility] Left: Hip [employer] 08/16/2026 [id number] / / [id number] [employer] [place] 52mm Sector Hip Shell Acetabular Gription Sterile Latex Free [id number] - [id number] Implanted:Qty: 1 on 11/01/2021 by Puma Mckenzie MD at [facility] Left: Hip [employer] [id number] 08/17/2031 [id number] / / [id number] [employer] [id number] Actis Collar Hip 7 High Offset Stem Femoral - [id number] Implanted:Qty: 1 on 11/01/2021 by Puma Mckenzie MD at [facility] Left: Hip [employer] [id number] 08/17/2031 [id number] / / [id number] [employer] Articul/Ernesto 36mm Cementless Hip +1.5mm 12/14 Taper Head Femoral Latex Free [id number] - [id number] Implanted:Qty: 1 on 11/01/2021 by Puam Mckenzie MD at [facility] Left: Hip [employer] 09/16/2026 [id number] / / [id number] Medtronic Inc Protege Gps Exprt 9mm .079in 60mm 80cm Otw Delivery System Self Riyu22-63-63-45 - [id number] Implanted:Qty: 1 on 02/18/2022 by Stalin Arauz MD at [facility] [employer] Inc 10/22/2024 [id number] 0 -80 / / [id number] [employer] Marshall Angio-Seal Evolution 6fr Vascular Closure [id number] - [id number] Implanted:Qty: 1 on 02/18/2022 by Stalin Arauz MD at [facility] [employer] 06/18/2022 [id number] / / [id number] [employer] Zilver Ptx 6mm 120mm 125cm Drug Elute Otw Delivery System [id number] - [id number] Implanted:Qty: 1 on 02/18/2022 by Stalin Arauz MD at [facility] [employer] 10/21/2023 [id number] / / [id number] [employer] Zilver Ptx 6mm 100mm 125cm Otw Preload Delivery System Self [id number] - [id number] Implanted:Qty: 1 on 02/18/2022 by Stalin Arauz MD at [facility] [employer] 11/09/2023 [id number] / / [id number] Medtronic Inc Everflex Entrust 8mm 60mm 120cm Self Expand Triaxial Low Profile - [id number] Implanted:Qty: 1 on 02/18/2022 by Stalin Arauz MD at [facility] [employer] 07/26/2024 [id number] 0 -120 / / [id number] Dimmi Angio-Seal Evolution 6fr Vascular Closure [id number] - [id number] Implanted:Qty: 1 on 03/24/2022 by Stalin Arauz MD at [facility] [employer] 05/18/2022 [id number] / / [id number] Procedures Procedure Name Priority Date/Time Associated Diagnosis Comments ID ARTHROCENTESIS ASPIR&/INJ MAJOR JT/BURSA W/O US Routine 04/29/2024 1:00 PM RISK MANAGEMENT MANAGER Osteoarthritis of right glenohumeral joint Complete tear [...] Recently Relevant to Health Maintenance Results * ID ARTHROCENTESIS ASPIR&/INJ MAJOR JT/BURSA W/O US (04/29/2024 1:00 PM RISK MANAGEMENT MANAGER) Narrative Jadyn Hobson PA - 04/29/2024 1:00 PM RISK MANAGEMENT MANAGER Jadyn Hobson PA ? 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 Testing performed by: [facility], [address] [place] [address]., [address] Urine 04/11/2024 5:37 AM CDT 04/11/2024 8:49 AM CDT Lnecho Thomson MD LAB URINE ORDERABLES Final Resu lt [facility] [place] [address] [facility] [place] [address] * Creatinine, urine, random (04/11/2024 5:37 AM CDT) Creatinine Ur 25.6 mg/dL Comment: Interpretive Data No reference range established. Current interpretive data was last revised 2018. Urine 04/11/2024 5:37 AM CDT 04/11/2024 5:40 AM CDT Narrative [facility] ([place]) - 04/11/2024 6:02 AM CDT No normal range us Lencho Thomson MD LAB URINE ORDERABLES Final Resu lt [facility] ([place]) [address] [facility] [place] [address] * (ABNORMAL) eGFR (04/11/2024 5:22 AM CDT) [...] us Eri BRUCE LAB BLOOD ORDERABLES Farzana david Result [facility] ([place]) [address] [facility] [place] [address] * (ABNORMAL) Differential, auto (04/11/2024 5:22 AM [...] Neutrophil pct 80.1 % [facility] ([place]) Comment: Interpretive Data Percent cell count reference [...] BLOOD ORDERABLES Farzana hernandez Result [facility] ([place]) [address] [facility] Department of Laboratories [place], [place] [id number] * (ABNORMAL) CBC with auto differential (04/11/2024 [...] 0.00 0.00 - 0.01 K/cumm [facility] ([place]) Blood 04/11/2024 5:22 AM CDT 04/11/2024 6:23 AM CDT us Lencho Thomson MD LAB BLOOD ORDERABLES Final Resu lt Performing Organization Address [facility] Co de Phone Number [facility] ([place]) 1 [facility] [place] [address] * Magnesium (04/11/2024 5:22 AM CDT) Magnesium 2.0 1.4 - 2.5 mg/dL Blood 04/11/2024 5:22 AM CDT 04/11/2024 6:31 AM CDT us Lencho Thomson MD LAB BLOOD ORDERABLES Final Resu lt Performing Organization Address [facility] de Phone Number [facility] ([place]) [address] [facility] [place] [address] * (ABNORMAL) Lipid panel (04/11/2024 5:22 AM [...] 2018. LDL, calculated 97 <=129 mg/dL [facility]) Comment: Interpretive Data Ages [...] Final Resu lt [facility] ([place]) [address] [facility] [place] [address] * (ABNORMAL) Comprehensive metabolic panel (04/11/2024 5:22 [...] 5:22 AM CDT 04/11/2024 6:22 AM CDT Lencho Thomson MD LAB BLOOD ORDERABLES Final Resu lt Performing Organization Address City/[facility]/ZIP Co de Phone Number [facility] ([place]) [address] [facility] [place] [address] * (ABNORMAL) Troponin T high-sensitivity 6-hour (04/10/2024 9:04 PM CDT) Trop T hs 23(H) <=14 ng/L Comment: Interpretive Data For further hscTnT resources including the diagnostic algorithm and an aid in interpretation, copy and paste this link: [email or web address].[employer].org/show/hsTrop Current Interpretive Data last revised 2020. Trop T hs delta -3 ng/L [facility] ([place]) Trop T hs interp Insignificant [facility] ([place]) Blood 04/10/2024 9:04 PM CDT 04/10/2024 9:07 PM CDT Hai Cook NP LAB BLOOD ORDERABLES Final Result Performing Organization Address City/[facility] Co de Phone Number [facility] ([place]) [address] [facility] [place] [address] * (ABNORMAL) Troponin T high-sensitivity 4-hour (04/10/2024 7:00 PM CDT) Trop T hs 23(H) <=14 ng/L Comment: Interpretive Data For further hscTnT resources including the diagnostic algorithm and an aid in interpretation, copy and paste this link: https://nrl.[employer].org/show/hsTrop Current Interpretive Data last revised 2020. Trop T hs delta -3 ng/L [facility] ([place]) Trop T hs interp Insignificant [facility] ([place]) Blood 04/10/2024 7:00 PM CDT 04/10/2024 7:03 PM CDT us Hai Cook NP LAB BLOOD ORDERABLES Final Result Performing Organization Address City/[facility]/ZIP Co de Phone Number CHIDI FANG ([place]) 1 [facility] [place] [address] * (ABNORMAL) Troponin T high-sensitivity 2-hour (04/10/2024 5:29 PM CDT) Trop T hs 23(H) <=14 ng/L Comment: Interpretive Data For further hscTnT resources including the diagnostic algorithm and an aid in interpretation, copy and paste this link: https://nrl.testcatalog.org/show/hsTrop Current Interpretive Data last revised 2020. Trop T hs delta -3 ng/L [facility] ([place]) Trop T hs interp Insignificant [facility] ([place]) Blood 04/10/2024 5:29 PM CDT 04/10/2024 5:31 PM CDT Hai Cook NP LAB BLOOD ORDERABLES Final Result Performing Organization Address [facility] Co de Phone Number CHIDI FANG ([place]) 1 [facility] [place] [address] * XR Chest 1 Vw Portable (04/10/2024 [...] PM T: ??04/10/2024 5:48 PM Report ID: [id number] Reading Location: ??[id number] Procedure Note Zoraida Parks MD - 04/10/2024 [...] Zoraida Parks M.D. AT: AT Report ID: [id number] Reading Location: [id number] Eri BRUCE IMG XR PROCEDURES Final R [...] BLOOD ORDERABLES Final Result Performing Organization Address City/[facility] Co de Phone Number CHIDI FANG [place]) 1 [facility] [place] [address] * (ABNORMAL) eGFR (04/10/2024 3:05 PM CDT) [...] BLOOD ORDERABLES Final Result Performing Organization Address City/[facility] Co de Phone Number [facility] ([place]) 1 [facility] [place] [address] * (ABNORMAL) Differential, auto (04/10/2024 3:05 PM CDT) Neutrophil abs 8.0(H) 1.5 - 6.5 K/cumm Imm gran abs 0.1 0.0 - 0.1 K/cumm [facility] ([place]) Lymphocyte abs 0.7(L) 0.8 - 3.3 K/cumm [facility] ([place]) Monocyte abs 0.6 0.2 - 0.8 K/cumm [facility] ([place]) Eosinophil abs 0.3 0.0 - 0.5 K/cumm [facility] ([place]) Basophil abs 0.1 0.0 - 0.1 K/cumm [facility] ([place]) Neutrophil pct 82.3 % [facility] ([place]) Comment: Interpretive Data Percent cell count reference ranges are not reported, since discordance with absolute values may lead to misinterpretation of CBC data. Current Interpretive Data was last revised on 2017. Imm gran pct 0.9 % [facility] ([place]) Comment: Interpretive Data Percent cell count reference ranges are not reported, since discordance with absolute values may lead to misinterpretation of CBC data. Current Interpretive Data was last revised on 2017. Lymphocyte pct 7.0 % [facility] ([place]) Comment: Interpretive Data Percent cell count reference ranges are not reported, since discordance with absolute values may lead to misinterpretation of CBC data. Current Interpretive Data was last revised on 2017. Monocyte pct 6.2 % [facility] ([place]) Comment: Interpretive Data Percent cell count reference ranges are not reported, since discordance with absolute values may lead to misinterpretation of CBC data. Current Interpretive Data was last revised on 2017. Eosinophil pct 3.0 % [facility] ([place]) Comment: Interpretive Data Percent cell count reference ranges are not reported, since discordance with absolute values may lead to misinterpretation of CBC data. Current Interpretive Data was last revised on 2017. Basophil pct 0.6 % [facility] ([place]) Comment: Interpretive Data Percent cell count reference ranges are not reported, since discordance with absolute values may lead to misinterpretation of CBC data. Current Interpretive Data was last revised on 2017. Blood 04/10/2024 3:05 PM CDT 04/10/2024 3:11 PM CDT Hai Cook FOILING MACHINE ADJUSTER LAB BLOOD ORDERABLES Final Result [facility] ([place]) 1 [facility] [place] [address] * (ABNORMAL) Pro B-type natriuretic peptide (04/10/2024 [...] ORDERABLES Final Result [facility] ([place]) 1 [facility] [place] [address] * (ABNORMAL) CBC with auto differential (04/10/2024 3:05 PM CDT) WBC 9.7 3.8 - 9.9 K/cumm Hgb 12.2 11.9 - 15.5 g/dL [facility] ([place]) Hct 38.6 35.6 - 45.5 % [facility] ([place]) Plt 334 150 - 400 K/cumm [facility] ([place]) MPV 9.0(L) 9.1 - 12.3 fL [facility] ([place]) RBC 4.40 3.90 - 5.20 M/cumm [facility] ([place]) MCV 87.7 81.3 - 96.4 fL CERNER [...] CDT 04/10/2024 3:11 PM CDT Hai Cook FOILING MACHINE ADJUSTER LAB BLOOD ORDERABLES Final Result [facility] ([place]) 1 [facility] [place] [address] * (ABNORMAL) Comprehensive metabolic panel (04/10/2024 3:05 [...] ([place]) Albumin 3.6 3.5 - 5.0 g/dL [facility] ([place]) Alk phos 109 40 - 130 Units/L [facility] ([place]) ALT 9 7 - 45 Units/L [facility] ([place]) AST 14 10 - 45 Units/L [facility] ([place]) Blood 04/10/2024 3:05 PM CDT 04/10/2024 3:11 PM CDT us Hai Cook NP LAB BLOOD ORDERABLES Final Result Performing Organization Address City/[facility] Co de Phone Number [facility] ([place]) 1 [facility] [place] [address] * ECG 12 lead (04/10/2024 2:47 PM CDT) 04/10/2024 2:47 PM CDT Narrative [facility] - 04/12/2024 10:54 AM CDT Vent Rate: 68 bpm RR Interval: 872 msec ID Interval: 0 msec QRS Duration: 73 msec QT Interval: 397 msec QTC Interval: 415 msec P-R-T [place]: [id number] - 65 - 33 degrees IMPRESSION: ATRIAL FIBRILLATION LOW QRS VOLTAGE IN PRECORDIAL LEADS ??[QRS DEFLECTION < 1.0 mV IN CHEST LEADS] ABNORMAL RHYTHM ECG No change compared to prior EKG Electronically Signed By: Eric Bashir MD [id number] Hai Cook NP ECG ORDERABLES Final Resul t Performing Organization Address [facility] Co de Phone Number [facility] [employer] [facility] * (ABNORMAL) eGFR (04/10/2024 9:52 AM CDT) [...] 04/10/2024 10:39 AM CDT us Maude Harris FOILING MACHINE ADJUSTER LAB BLOOD ORDERABLES Fi nal Result Performing Organization Address City/State/[facility] Co de Phone Number [facility] ([place]) 1 [facility] [place] [address] * (ABNORMAL) Pro B-type natriuretic [...] as advanced age. - References: 1. Lizeth YWNN et.al. Eur Heart J. 2006:27:330-337. 2. Hayden RW, Iman AM. J. AM Sahra Cardiol: Cardiovasc Imag. 2009;2: 216- 225. Interpretive Data Last Revised Date: 2018. Blood 04/10/2024 9:52 AM CDT 04/10/2024 10:39 AM CDT us Maude Harris NP LAB BLOOD ORDERABLES Fi nal Result CHIDI FANG ([place]) 1 [facility] Department of Laboratories [place], [place] [id number] * (ABNORMAL) Basic metabolic panel (04/10/2024 9:52 AM CDT) Sodium 133(L) 135 - 145 mmol/L Potassium, pl 3.6 3.3 - 4.9 mmol/L CHIDI FANG ([place]) Chloride 89(L) 97 - 110 mmol/L [facility] ([place]) CO2 33(H) 22 - 32 mmol/L [facility] ([place]) Anion gap 12 2 - 15 mmol/L [facility] ([place]) BUN 76(H) 6 - 25 mg/dL [facility] ([place]) Creatinine 1.82(H) 0.60 - 1.10 mg/dL [facility] ([place]) Glucose 86 70 - 199 mg/dL [facility] ([place]) Comment: Interpretive Data Fasting glucose >/= [...] 2022. Calcium 9.6 8.5 - 10.3 mg/dL [facility] ([place]) Blood 04/10/2024 9:52 AM CDT 04/10/2024 10:39 AM CDT Maude Harris FOILING MACHINE ADJUSTER LAB BLOOD ORDERABLES nal Result [facility] ([place]) 1 [facility] [place] [address] * (ABNORMAL) eGFR (04/01/2024 10:39 AM CDT) [...] CDT 04/01/2024 1:47 PM CDT Maude Harris FOILING MACHINE ADJUSTER LAB BLOOD ORDERABLES nal Result [facility] ([place]) 1 [facility] [place] [address] * (ABNORMAL) Pro B-type natriuretic [...] 9 AM CDT 04/01/2024 1:46 PM CDT Maude Harris NP LAB BLOOD ORDERABLES nal Result [facility] ([place]) 1 [facility] [place] [address] * (ABNORMAL) Basic metabolic panel (04/01/2024 10:39 AM CDT) Sodium 128(L) 135 - 145 mmol/L Potassium, pl 3.2(L) 3.3 - 4.9 mmol/L [facility] ([place]) Chloride 81(L) 97 - 110 mmol/L [facility] ([place]) CO2 34(H) 22 - 32 mmol/L [facility] ([place]) Anion gap 13 2 - 15 mmol/L [facility] ([place]) BUN 78(H) 6 - 25 mg/dL [facility] ([place]) Creatinine 1.85(H) 0.60 - 1.10 mg/dL [facility] ([place]) Glucose 96 70 - 199 mg/dL [facility] ([place]) Comment: Interpretive Data Fasting glucose >/= [...] 2022. Calcium 9.8 8.5 - 10.3 mg/dL [facility] [facility] ([place]) Blood 04/01/2024 10:3 9 AM CDT 04/01/2024 1:47 PM CDT Maude Harris NP LAB BLOOD ORDERABLES nal Result [facility] ([place]) 1 [facility] [place] [address] * (ABNORMAL) Hemoglobin A1c (01/25/2024 10:56 AM CDT) Hgb A1C 5.8(H) 4.0 - 5.6 % Estimated Average Glucose 120 mg/dL [facility] ([place]) Comment: The ADA recommends reporting an estimated Average Glucose (eAG) with all Hemoglobin A1c results using the equation derived from a study of 507 normal and diabetic adults. ??Minority populations were underrepresented and children were not included. ?? (Diabetes Care 31:9582-2005, 2008). ??The eAG is not equivalent to a fasting glucose. Blood 01/25/2024 10:5 6 AM CDT 01/25/2024 11:27 AM CDT Pepper Morgan MD LAB BLOOD ORDERABLES Final Result Performing Organization Address [facility] Co de Phone Number CHIDI FANG ([place]) 1 [place] [address] * Albumin Creatinine Ratio, Urine (01/25/2024 10:50 AM CDT) Albumin Ur <12.0 mg/L Comment: Interpretive Data No reference range established. Current interpretive data was last revised 2018. Testing performed by: [facility], [address] [place] [address], [id number] Creatinine Ur 11.1 mg/dL CHIDI FANG ([place]) Comment: Interpretive Data No reference range established. Current interpretive data was last revised 2018. Testing performed by: [address], [address] Albumin Creatinine Ratio, Ur See Comment 1 - 29 CHIDI FANG ([place]) Comment: Unable to calculate Testing performed by: [address], [address] Urine 01/25/2024 10:5 0 AM CDT 01/25/2024 1:57 PM CDT Pepper Morgan MD LAB URINE ORDERABLES Final Result Performing Organization Address [facility] de Phone Number CHIDI FANG ([place]) 1 [place] [address] from Last 3 Months or Most Recently Relevant to Health [place] [address] MEDICARE [facility]ARE [facility]IC[facility] [place] [address] [facility] [place] [address] MEDICARE [facility] Advance Directives For more information, please contact: [phone] Documents on File Type Date Recorded 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 05/14/2019 1:34 PM [...] 7:42 PM 12/30/2022 3:56 PM Care Teams Nutrition Instructor Relationship Specialty Start Date End Date Pepper Morgan MD PCP - General 09/16/16 Hank Garibay MD [address] [facility] [address] [place] [address] Surgeon Orthopedic Surgery 03/27/17 Jacky Murry MD [address] [facility] [address] [place] [address] Ophthalmology 03/27/17 Puma Mckenzie MD [address] [place] [address] [address] [place] [address] Surgeon Orthopedic Surgery 07/11/19 Neha Jackson, PT Physical Therapist Physical Therapy 12/01/21 Stalin Arauz MD [address] [place] [address] [address] [place] [address] Consulting Physician Cardiology 12/08/22 Tiffany Rojas PA [address] [place] [address] [address] [place] [address] Gastroenterology 12/30/22 Klaus Deshpande MD [address] [place] [address] [address] [place] [address] Consulting Physician Neurology 06/13/23
--- OUTSIDE RECORDS SUMMARY | 2024-06-18 18:47 | XMS_ITS | Encounter Summary ---
Author Organization [facility] Address [address] [place] [address] Care Team Providers Care Audit Consultant Name Role Phone Pepper Morgan MD Primary Care Provider + [phone] Hank Garibay MD Unavailable [phone] Jacky Murry MD Unavailable [phone] Puma Mckenzie MD Unavailable [phone] Neha Jackson PT Unavailable Unavailable Stalin Arauz MD Unavailable [phone] Tiffany Rojas Unavailable [phone] Klaus Deshpande MD Unavailable [phone] Encounter Details Date Type Department Care Team (Late st Contact Info) Description 04/02/2024 Telephone [place] Head Librarian at [address] [place] [id number] [facility], [place] Social History Tobacco Use Types Packs/Day Years Used Date Smoking Tobacco: Former Cigarettes 2 30 1 952 - 1981 Smokeless Tobacco: Never Alcohol Use Standard Drinks/Week Comments Not Currently 0 (1 standard drink = 0.6 oz pur e alcohol) [facility] Utilities Answer Date Recorded In the past 12 months has [employer], gas, oil, or water company threatened to [...] often do you attend chur ch or gnosticism services? Never 07/24/2023 Do you belong to any clubs o r organizations such as voodoo groups, unions, fraternal or athletic groups, or [...] a care home (including now)? No 07/24/2023 Personal Safety Answer Date Recorded Have you ever been in or are you currently in a harmful physical or emotional relationship or is someone making you feel afraid or unsafe? Denies 03/15/2024 Comments No Sex and Gender Information Value Date Recorded Sex Assigned at Not on file Legal Sex Female 4:33 AM BRIM FLEXER Gender Identity Not on file Sexual Orientation Not on file Occupation Industry Job Start Date Job End Date retired Not on file Not on file Not on file documented as of this encounter Miscellaneous Notes * Telephone Encounter - Viki Oneal MA - 04/02/2024 1:02 PM CDT LVM for pt to CB for results * Telephone Encounter - Viki Oneal MA - 04/02/2024 1:02 PM CDT ----- Message from Maude Harris NP sent at 04/02/2024 8:14 AM CDT ----- Reduce metolazone to 2x/week. Proceed with fluid restriction. Call back with progress report as well as BMP / BNP as below. May need to be admitted ----- Message ----- From: Stalin Arauz MD Sent: 04/01/2024 5:28 PM CDT To: Maude Harris NP Problem that more metolazone can cause worsening kidney function as well as worsening sodium. I recommend fluid restriction 1500 cc daily and reduced dose of metolazone. Call back with progressreport couple days and as well as repeat BNP BNP. If it is not correcting, then may need admission to the hospital ----- Message ----- From: Maude Harris NP Sent: 04/01/2024 3:43 PM CDT To: Stalin Arauz MD She complained today of being up 4 lb and too short of breath to lie flat bed, she had no ankle edema. Left lung gilliam were clear, diminished right base. I told her to take metolazone daily until she is back to her dry weight. Do we still want to do this given DANNY and hyponatremia? ----- Message ----- From: Interface, Lab Results In Sent: 04/01/2024 2:11 PM CDT To: Maude Harris NP documented in this encounter Plan of Treatment [...] on filedocumented in this encounter Care Teams Audit Consultant Relationship Specialty Start Date End Date Pepper Morgan MD PCP - General 09/16/16 Hank Garibay MD 4 [facility] [address] [facility] [address] [place] [address] Surgeon Orthopedic Surgery 03/27/17 Jacky Murry MD 4 [facility] [address] [place] [address] Ophthalmology 03/27/17 Puma Mckenzie MD [address] [place] [address] [address] [place] [address] Surgeon Orthopedic Surgery 07/11/19 Neha Jackson, PT Physical Therapist Physical Therapy 12/01/21 Stalin Arauz MD 2 [facility] [address] [place] [address] Consulting Physician Cardiology 12/08/22 Tiffany Rojas PA 4 [facility] [address] [place] [address] Gastroenterology 12/30/22 Klaus Deshpande MD 4 [facility] [address] [place] [address] Consulting Physician Neurology 06/13/23 documented as of this encounter
--- OUTSIDE RECORDS SUMMARY | 2024-06-18 18:47 | XMS_ITS | Continuity of Care Document ---
[facility] Organization [facility] Address [address] [place] [address] Phone Care Team Providers Care Printing Sales Representative Name Role Phone Kevonhawa RESENDEZ, Tamie Unavailable Unavailable Allergies, Adverse Reactions, Alerts Substance Reaction Status Criticality DULOXETINE HCL Active No Informatio n trazodone Active No Information celecoxib Active No Information lisinopril Active No Information Sulfa (Sulfonamide Antibiotics) Active No Information amlodipine Active No Information Medications Medication Instructions Dosage Effective Dates (start - stop) Status Comments cyclosporine 0.05 % eye drops in a dropperette instill 1 drop by ophthalmic route every 12 hours into affected eye(s) 1.00 drop - Active allopurinol 100 mg tablet take 1 tablet by oral route every day 100 MG - Active Jardiance 10 mg tablet take 1 tablet by oral route every day in the morning 10 MG - Active Xarelto 2.5 mg tablet take 1 tablet by oral route 2 times every day 2.5 MG - Active furosemide 40 mg tablet take 3 tablet by oral route every day 120 MG - Active pantoprazole 20 mg tablet,delayed release take 2 tablet by oral route every day 40 MG - Active spironolactone 25 mg tablet take 1 tablet by oral route every day 25 MG - Active Vitamin D3 2,000 unit capsule take 1 capsule by oral route every day 1 capsule - Active biotin 10,000 mcg capsule take 1 capsule by oral route every day 1 capsule - Active felodipine ER 2.5 mg tablet,extended release 24 hr take 1 tablet by oral route every day 2.5 MG - Active propranolol 20 mg tablet take 1 tablet by oral route 3 times every day 20 MG - Active pramipexole 0.125 mg tablet take 1 tablet by oral route 3 times every day 0.125 MG - Active Procedures Procedure Date No Charge Optomap Fundus Photos 024 No Charge GDX Retina Refraction Post-op Follow-up Visit No Charge Refraction After Cataract Laser Surgery Office/outpatient Visit, Est No Charge Optomap Fundus Photos 024 No Charge Refraction Office/outpatient Visit, Est No Charge Optomap Fundus Photos 023 Eye Exam & Treatment Fundus Photography W/ Report Eye Exam & Treatment SCODI, Retina No Charge Optomap Fundus Photos 022 Office/outpatient Visit, New No Charge Refraction SCODI, Retina Eye Exam & Treatment Refraction Eye Exam & Treatment Eye Exam & Treatment No Charge Refraction Eye Exam, New Patient Refraction Advance Directives Directive Yes / No Effective Date File Name Other Directive No N/A N/A WARNING:The information contained in this section is historical and is provided for information only and does not constitute a legal document or any assurance that the information is still accurate. Please verify the information with the perdue of the legal document before using it for clinical purposes. Encounters Encounter Description Practice Location Reason(s) For Visit Diagnoses Date Provider Providers Copied on Encounter [facility], [address], [place], [place], [id number], [place] tel:[phone] SEC Antoine DIXON Professional Complete Exam (chief complaint) Presence of intraocular lensVitreous degeneration, left eyeDrusen (degenerative ) of macula, bilateralEpir etinal membrane (ERM) of right eyeKeratoconj unctivitis sicca, not specified as Sjogren's, bilateral 4 Kevon OD Tamie. [address] [address], [address], [place], [place], [address], [place]. tel:[phone] Referring Provider: Tamie Porter, [facility] [address], [place], [address] . tel:[phone] [facility], [address] [place], [place] [address] [address], [place], [place], [address], [place] tel:[phone] SEC [place] Professional YAG PO (chief complaint) Post op visit 4 Ryann OD Concetta. [address] [place], [place] [address], [address], [place], [place], [address], [place]. tel:[phone] Referring Provider: Tamie Porter, [address] [place], [place] [address] [address], [place], [address] . tel:[phone] [place] [facility] [place] [address] [place], [place] [address] [address], [place], [place], [address], [place] tel:[phone] SEC [place] Professional YAG capsulotomy evaluation (chief complaint) Other secondary cataract, left eye Sep-3 4 [place] Enrico. [address] [place], [place] [address], [address], [place], [place], [address], [place]. tel:[phone] Referring Provider: Tamie Porter, [address] [place] [address] [address], [place], [address] . tel:[phone] [place] [facility] [place] [address] [place], [place] [address] [address], [place], [place], [address], [place] tel:[phone] SEC [place] Professional Follow up visit (chief complaint) Other secondary cataract, left eyeBilateral artificial lens implant Sep- 4 Kevon OD Tamie. [address] [place], [place] [address] [address], [address], [place], [place], [address], [place]. tel:[phone] Referring Provider: Tamie Porter, [address], [place], [address] . tel:[phone] [facility], [address], [place], [place], [address], [place] tel:[phone] SEC [place] Professional Complete Exam (chief complaint) Macular hole of right eyeDry eye syndrome of right lacrimal glandDry eye syndrome of left lacrimal glandVitreous degeneration, left eye Jan- 3 Kevon OD Tamie. [address] [place] [address] [address], [address], [place], [place], [address], [place]. tel:[phone] Referring Provider: Tamie Lund OD [place], [address], [place], [address] . tel:[phone] [facility], [address] [place] [address] [address], [place], [place], [address], [place] tel:[phone] SEC [place] Professional Complete Exam (chief complaint) Vitreous degeneration, left eyePresence of intraocular lensOther secondary cataract, left eyeDrusen (degenerative ) of macula, bilateral Jan- 2 Jeanmarie Rico. [address], [place], [place], [address], [place]. tel:[phone] Referring Provider: Jacky Escobedo, [address], [place], [address] . tel:[phone] Office/outpa tient Visit, [facility], [address], [place], [place], [address], [place] tel:[phone] [place] Professional hair like image (chief complaint) Vitreous degeneration, left eyePresence of intraocular lensOther secondary cataract, left eye Aug- 2 Jeanmarie Rico. [address] [facility], [address], [place], [place], [address], [place]. tel:[phone] Referring Provider: Jacky Escobedo, [address], [place], [address] . tel:[phone] [facility], [address], [place], [place], [address], [place] tel:[phone] [place] Professional Complete Exam (chief complaint) Presence of intraocular lensMacular hole of right eyeOther secondary cataract, left eye 9 Jeanmarie Penason. [address], [place], [place], [address], [place]. tel:[phone] Referring Provider: Jacky Escobedo, [address] [facility] [address], [place], [address] . tel:[phone] [facility], [address], [place], [place], [address], [place] tel:[phone] SEC [place] Professional No Information 9 Jeanmarie Rico. [address], [place], [place], [address], [place]. tel:[phone] [facility], [address], [place], [place], [address], [place] tel:[phone] [place] Professional Complete Exam (chief complaint) No Information 7 Jeanmarie Rico. [address], [place], [place], [address], [place]. tel:[phone] Referring Provider: Michael Liz, [address], [place], [address] . tel:[phone] [facility], [address], [place], [place], [address], [place] tel:[phone] [place] Professional Complete Exam (chief complaint) No Information 6 Jazzmine Rodriguez. [address], [place], [place], [address], . tel:[phone] Referring Provider: Michael Liz, [address] [facility] [address], [place], [address] . tel:[phone] [facility], [address], [place], [place], [address], [phone] SEC [place] Professional Blurry vision (chief complaint) No Information 5 Conrado Blackburn. [address] [facility], [address], [place], [address], [place]. tel:[phone] Referring Provider: Michael Liz, [address] [facility] [address], [place], [address] . tel:[phone] [facility], [address], [place], [place], [address], [place] [phone] SEC Antoine DESTINY Professional No Information 5 Jazzmine Rodriguez. [address] [facility], [facility] [place], [address], . tel:[phone] Family History Family Member Type Diagnosis Age At Onset Mother Problem (finding) degenerative disorder o f macula Father Problem (finding) glaucoma Payers Payer name Insurance type Covered republican ID Authoriza tion(s) [place] [id number] [facility] Out Of State [id number] Social History Type Description Quantity Date Captured Comments Alcohol Use Details No Caffeine Use Details 3 cups per day Tobacco Use Status Ex-cigarette smoker 024 Smoking Status Former smoker Smoking Tobacco Use Details Cigarette: Age Started: 19, Age Stopped: 54, Years Used 37 Cigarette: 2 Packs per day, Pack Year: 70 Sex Female Chief Complaint And Reason For Visit From encounter dated 05/06/2024 14:00'. Complete Exam (chief complaint). Description: The 88 year old patient presents for evaluation of Complete Exam in the right eye and left eye. Pt states no changes in OU since last visit. Reason For Referral Reason For Referral No Information Plan Of Treatment Date Type Action Status Goal Tobacco cessation counseling completed Goal Tobacco cessation counseling completed Goal Tobacco cessation counseling completed Goal Tobacco cessation counseling completed Patient Education Learning About Retinal Drusen completed Patient Education Learning About Your Eye s completed History Of Present Illness Encounter Date Complaint History Of Prese nt Illness Complete Exam The 88 year old patient presents for evaluation of Complete Exam in the right eye and left eye. Pt states no changes in OU since last visit. YAG PO The 87 year old patient presents for evaluation of YAG PO in the left eye. Pt states that the laser did seem to help OS but pt states every now and then they still seem to see a little bit of fog. YAG capsulotomy evaluation The 10 5 year old patient presents for evaluation of YAG capsulotomy evaluation in the left eye. Pt. referred by Dr. Lund for Post capsule opacity. Pt has noticed difficulty reading small print even with glasses on. Pt has trouble playing cards and filling out forms. Follow up visit The 87 year old patient presents for evaluation of Follow up visit in the right eye and left eye. Pt states OS feels like a cobweb is in her vision, like there is a constant haze. Pt hx of CE/IOL OU and YAG PC OD. Pt has noticed more of a haze over last several months OS. Pt is having a hard time with reading smaller print. Complete Exam The 87 year old patient presents for a complete exam ou. Patient is pseudo ou and yag pc OD. Patient c/o foggy vision OS. Patient is having a hard time reading small print. Patient has hx of mac hole OD. Complete Exam The 86 year old patient presents for a complete exam ou. Patient is pseudo ou with yag cap OD. Patient has hx of mac hole repair OD. Patient c/o a cobweb in OS still from her last visit. Patient thinks it is like a hair in OS. hair like image The 85 year old patient presents for evaluation of hair like image in the left eye. Hx of PCIOL OU, YAG PC OD, Mac Hole OD s/p repair OD, and ABMD OU. Patient states she is seeing a hair like image in her left eye that started Monday. Patient denies Flashes or any new floaters. Complete Exam The 82 year old female presents for evaluation of Complete Exam in the right eye and left eye. Hx of PCIOL OU, YAG PC OD, Mac Hole OD, and ABMD OU. Patient states she is unable to wear the new glasses she was prescribed last year she states they just feel to strong. Complete Exam The 81 year old female presents for Complete Exam in the right eye and left eye. PCIOL OU, Macular Hole. Pt states vision is ok, may need some stronger readers, after reading for a while OU feels strained. Pt not currently using any gtts. Pt denies any pain or discomfort, has no visual concerns at this time. Complete Exam The 80 year old female presents for Complete Exam OU. Patient has hx of PCIOL OU and old Mac Hole OD. Patient reports stable vision OU. Patient states that she notices blur after reading on her tablet for extended periods of time. patient is having stabbing back pains , she states she is going for xrays after appt Blurry vision The 78 year old female presents for a complete exam. Pt denies any pain or discomfort at this time. Pt states v/a is stable. Pt does not use any gtts at this time. Hx of PCIOL OU, and Mac Hole OD. Functional Status Date Functional Assessmen t No Information Instructions Date Instruction Additional Infor asaf Impression/Plan Impression/Plan Impression/Plan Related to Other secondary cataract, left eye Impression/Plan Impression/Plan Impression/Plan Impression/Plan Impression/Plan Follow up - Return i n 1 year with Jacky Murry M.D. for Complete Exam. Impression/Plan - Di scussed exam findings with patient. IOL's in good position, open pc OD, pcf OS. Discussed Yag PC as treatment of PCO if ever indicated in the future. New glasses will improve vision, rx for glasses given. History of Macular Hole OD, appears stable will monitor. ABMD stable will continue to monitor. Return to clinic in 1 year for complete exam or sooner with problems. Follow up - Return i n 1 year with Michael Dover M.D. for Complete Exam. Impression/Plan - Di scussed diagnosis in detail with patient. IOL's in good position. History of Macular hole OD. Recommend artificial tears prn for dry eyes especially while reading. No signs of Glaucoma or AMD OU. Recommend OTC readers for near. Return to clinic in 1 year for complete exam or sooner with any problems. 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 for Complete Exam Related to Macular hole - Discussed diagnosi s with patient. No treatment needed at this time. Recommend AREDS II formula. Recommend patient to discuss shingles vaccine with Dr Morgan. Rx for glasses given. Return in 1 year for complete exam or sooner with any problems. 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
--- OUTSIDE RECORDS SUMMARY | 2024-06-18 18:47 | XMS_ITS | Clinical Summary ---
Author Organization [facility] Facility Address [address] [place] [address] Care Team Providers Care Bulb Sorter Name Role Phone Maude Harris PROOFREADER-HEARING STENOGRAPHER Primary Care Provider Unavailable Allergies Active Allergy Reactions Criticality Noted Date Comments Amlodipine Swelling 06/05/2024 Celecoxib Anaphylaxis High 06/05/2024 Ciprofloxacin Vomiting 06/05/2024 Duloxetine Hcl Other (see comments) 06/05/2024 Fatigue/Sleepiness Duloxetine 06/05/2024 Lisinopril Swelling 06/05/2024 Scopolamine Other (see comments) 06/05/2024 Mental Status Changes Carbidopa W-Levodopa Other (see comments) 06/05 Nightmares Sulfa Antibiotics Anaphylaxis High 06/05/2024 Trazodone Swelling 06/05/2024 Tongue Medications acetaminophen (TYLENOL) 500 MG tablet Take by mouth every 6 (six) hours if needed for mild pain Active albuterol HFA (PROVENTIL HFA;VENTOLIN HFA) 108 (90 Base) MCG/ACT inhaler Inhale 2 puffs every 6 (six) hours if needed for wheezing Active allopurinol (ZYLOPRIM) 100 MG tablet Take 200 mg by mouth 1 (one) time each day Active apixaban (ELIQUIS) 2.5 MG tablet Take 2.5 mg by mouth in the morning and 2.5 mg in the evening. Active Ascorbic Acid (vitamin C) 250 MG tablet Take 250 mg by mouth 3 (three) times a week Active atorvastatin (LIPITOR) 20 MG tablet Take 20 mg by mouth 1 (one) time each day Active cetirizine (ZyrTEC) 10 MG tablet Take 10 mg by mouth 1 (one) time each day Active cholecalciferol (VITAMIN D-3 SUPER STRENGTH) 50 MCG (2000 UT) tablet Take 2,000 Units by mouth 1 (one) time each day Active Empagliflozin (Jardiance) 10 MG tablet Take 10 mg by mouth 1 (one) time each day in the morning Active Ferrous Fumarate (Ferrocite) 324 (106 Fe) MG tablet Take 324 mg by mouth in the morning and 324 mg at noon and 324 mg in the evening. Active Fluticasone-Dutch meterol (Advair Diskus) 100-50 MCG/ACT aerosol powder Inhale 1 puff in the morning and 1 puff in the evening. Active furosemide (LASIX) 80 MG tablet Take 80 mg by mouth in the morning and 80 mg in the evening. Active gabapentin (NEURONTIN) 100 MG capsule Take 100 mg by mouth in the morning and 100 mg in the evening and 100 mg before bedtime. Active pantoprazole (PROTONIX) 20 MG EC tablet Take 20 mg by mouth 1 (one) time each day before breakfast Do not crush, chew, or split. Active pramipexole (MIRAPEX) 0.75 MG tablet Take 0.75 mg by mouth in the morning and 0.75 mg in the evening. Active polyethylene glycol (GLYCOLAX) 17 g packet Take 17 g by mouth 1 (one) time each day if needed Active propranolol (INDERAL) 20 MG tablet Take 20 mg by mouth in the morning and 20 mg in the evening. Active spironolactone (ALDACTONE) 25 MG tablet Take 25 mg by mouth 1 (one) time each day Active Vericiguat 2.5 MG tablet Take 2 mg by mouth 1 (one) time each day Active Encounters Date Type Department Care Team Description 06/03/2024 Documentation Only [facility]. [address] [facility] [address] [address] Tristin Guillen MD from Last 3 Months Family History Medical History Relation Comments COPD Father aortic abdominal an Father Relation Status Comments Father Social History Tobacco Use Types Packs/Day Years Used Date Smoking Tobacco: Former Cigarettes Q uit: 1982 Smokeless Tobacco: Never Alcohol Use Standard Drinks/Week Comments Never 0 (1 standard drink = 0.6 oz pur e alcohol) Comments Unknown Sex and Gender Information Value Date Recorded Sex Assigned at Not on file Legal Sex Female 11:01 AM EDT Gender Identity Not on file Sexual Orientation Not on file Plan of Treatment Upcoming Encounters Date Type Department Care Team (Late st Contact Info) Description 08/19/2024 11: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 [address] [facility] [address] [place] [address] Tristin Guillen MD [address] [facility] [address] [place] [address] Health Maintenance Due Date Last Done Comments Pneumococcal Vaccine: 65+ Years Completed 04/26/2016, 02/18/2015, 05/17/2002 Influenza Vaccine Completed 03/19/2024, , 03/10/2022, Additional history exists Hepatitis B Vaccine Aged Out No longe r eligible based on patient's age to complete this topic Care Teams Bulb Sorter Relationship Specialty Start Date End Date Maude Harris, PROOFREADER-HEARING STENOGRAPHER [address] [place] [address] PCP - General Oral And Maxillofacial Surgery Resident 06/05/24
--- OUTSIDE RECORDS SUMMARY | 2024-06-18 18:48 | XMS_ITS | Encounter Summary ---
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 Name Role Phone Pepper Morgan MD Primary Care Provider + [phone] Hank Garibay MD Unavailable [phone] Jacky Murry MD Unavailable [phone] Puma Mckenzie MD Unavailable [phone] Neha Jackson PT Unavailable Unavailable Stalin Arauz MD Unavailable [phone] Tiffany Rojas Unavailable [phone] Klaus Deshpande MD Unavailable [phone] Reason for Visit * Reason Comments Shortness of Breath * Auth/Cert (Routine) Specialty Diagnoses / Procedures Referred By Contac t Referred To Contact Diagnoses Hyperkalemia Acute on chronic diastolic CHF (congestive heart failure) (CMS/HCC) (HCC) Procedures na Referral ID Status Reason Start Date Expiration Date Visits Re quested Visits Authorized [id number] 1 1 Encounter Details Date Type Department Care Team (Latest Contact Info) Description 03/15/2024 12:08 PM CDT - 03/16/2024 5:36 PM CDT Hospital Encounter [facility] [id number] [place] [address] Kim Willams [place] [id number] [place] [address] [address] [place] [address] [place] [id number] [address] [facility] [address] [place], [place] [id number] [place]ar[place] [id number] [address] [facility] [address] [place], [place] [id number] Acute on chronic diastolic CHF (congestive heart failure) (CMS/HCC) (HCC) (Primary Dx); Hyperkalemia Discharge Disposition: Discharge to home or self care Social History Tobacco Use Types Packs/Day Years Used Date Smoking Tobacco: Former Cigarettes 1981 Smokeless Tobacco: Never Alcohol Use Standard Drinks/Week Comments Not Currently 0 (1 standard drink = 0.6 oz pur e alcohol) [facility] Qual Canalities Answer Date Recorded In the past 12 months has [employer], [employer], oil, or water [employer] threatened to shut off services in your [...] week 07/24/2023 How often do you attend [facility] or zoroastrianism services? Never 07/24/2023 Do you belong to any clubs o r organizations such as synagogue groups, unions, fraternal or athletic groups, or [...] place to sleep or slept in a intermediate (including now)? No 07/24/2023 Personal Safety Answer Date Recorded Have you ever been in or are you currently in a harmful physical or emotional relationship or is someone making you feel afraid or unsafe? 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 Gender Identity Not on file Sexual Orientation Not on file Occupation Industry Job Start Date Job End Date retired Not on file Not on file Not on file documented as of this encounter Last Filed Vital Signs Vital Sign Reading Time Taken Comments Blood Pressure 115/74 03/16/2024 1:10 PM CDT Pulse 89 03/16/2024 1:10 PM CDT Temperature 36.6 ??C (97.9 ??F) 03/16/2024 1:10 PM CD T Respiratory Rate 20 03/16/2024 1:10 PM CDT Oxygen Saturation 99% 03/16/2024 1:10 PM CDT Inhaled Oxygen Concentration - - Weight 83.9 kg (185 lb) 03/15/2024 8:35 PM CDT Height 152.4 cm (5') 03/15/2024 8:35 PM CDT Body Mass Index 36.13 03/15/2024 8:35 PM CDT documented in this encounter Discharge Summaries * Elizabeth Villarreal MD - 03/16/2024 12:12 PM CDT Inpatient Discharge Summary Admitting Provider: Sammy Anderson MD Discharge Provider: Elizabeth Villarreal MD Primary Care Physician at Discharge: Pepper Morgan MD [phone] Admission Date: 03/15/2024 Discharge Date: 03/16/2024 Primary Discharge Diagnoses: Shortness of breath on admission, congestive heart failure exacerbation related, resolved. Congestive heart failure exacerbation on admission; 06/15/2023 2D echo showed diastolic dysfunction. Asthma, not in exacerbation. Trivial mitral regurgitation, mild aortic stenosis, per 06/15/2023 2D echo. Hypertension. Atrial fibrillation. GERD. PVD. 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; successful stenting of the left common iliac artery using 9 x 60 Protege stent, post dilated using 8 mm balloon; successful stenting of the left external iliac artery using 8 x 60 EverFlex stent post dilated using 7 mm balloon; successful recanalization and angioplasty of long occluded segment of the left superficial femoral artery for treatment of the entire segment using 5 mm drug-coated balloons and final stenting of the mid segment of the superficial femoral artery using overlapping 6 mm Zilver self-expanding stents post dilated using a 5 mm balloon.AIF on 03/24/2022 showed 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 02/22/2024 ABIs showed moderate to severe arterial insufficiency at rest in both lower extremities with an ankle-brachial index of 0.60 on the right 0.63 on the left. Restless leg syndrome. Essential tremor. Gout, asymptomatic. Obesity. Slight hyponatremia. Hyperkalemia, resolved. Renal insufficiency. Slight anemia. Troponin trend of 27, 36, 19, 20, with delta of 9, -1; nonspecific. Elevated d-dimer, venous Dopplers were negative for DVT, chest CT PE protocol was negative. DETAILS OF HOSPITAL STAY Hospital Course: Patient was admitted on 03/15/2024 for shortness of breath that was congestive heart failure exacerbation related. 03/15/[address] showed diffuse mosaic attenuation suggestive of interstitial pulmonary edema versus reactive airways disease. Prior 06/15/2023 2D echo showed diastolic dysfunction. She was on Jardiance, IV Lasix. Cardiology service was consulted. During her stay, dyspnea resolved. Regarding asthma, she was not in exacerbation, was on Breo, albuterol MDI as needed. For hypertension, she was on propranolol, IV Lasix; BP was controlled. Regarding atrial fibrillation, rate was controlled, she was on Eliquis. For GERD, she was on Protonix. For restless leg syndrome, she was on Mirapex. For essential tremor, she was on propranolol. For gout, she was on allopurinol and was asymptomatic. Lab work showed slight hyponatremia of 133, hyperkalemia that resolved after treatment with Lokelma, sodium bicarb, IV Lasix, dextrose, insulin on 03/15/2024. Patient had renal insufficiency with creatinine of 1.16 with GFR of 46, slight anemia with hemoglobin of 11.3. Troponin trend was 27, 36, 19, 20, with delta of 9, -1; nonspecific. D-dimer was 647, venous Dopplers were negative for DVT,chest CT PE protocol showed no evidence of PE. Overall, patient continued to do well. Was seen, examined and discharged to home on 03/16/2024. Operative Procedures Performed: None. Diagnostic Studies: 03/15/2024 chest x-ray showing no pneumothorax or pleural effusion. Cardiomediastinal silhouette within normal limits. Mild pulmonary vascular congestion. No acute osseous abnormality. 03/15/[address] PE protocol showing diffuse mosaic attenuation suggestive of interstitial pulmonary edema versus reactive airways disease. No pulmonary embolus. Chronic findings. 03/16/2024 lower extremity venous Dopplers showing no deep venous thrombosis in the lower extremities. Discharge Details Physical Exam at Discharge: Per progress note. Discharge Condition: No chest pain. No shortness of breath. Afebrile. Stable. Vitals: 03/16/24 0818 03/16/24 0819 03/16/24 0944 03/16/24 1040 BP: 112/75 BP Location: Right arm Pulse: 100 90 96 Resp: 20 Temp: 36.8 ??C (98.3 ??F) TempSrc: Oral SpO2: 98% 99% Weight: Height: Discharge Disposition: Home. Code Status at Discharge: Full Code. Discharge Instructions: Activity Instructions Discharge activity: Resume normal activity Advance as tolerated. Diet Instructions Adult Discharge Diet Diet Type: Other (specify) Explanatory Comment: Low-fat/low-cholesterol, low-sodium. Other Instructions Call provider for: Temperature -Temperature greater than 101 degrees F Call provider for: difficulty breathing or chest pain Call provider for: extreme fatigue Call provider for: persistent dizziness or light-headedness Call provider for: persistent nausea or vomiting Discharge Medications: CONTINUE these medications which have NOT CHANGED Details acetaminophen (TYLENOL) 500 mg tablet Take 2 tablets (1,000 mg total) by mouth 2 (two) times a day as needed for pain albuterol HFA (Proventil HFA) 90 mcg/actuation inhaler Inhale 2 puffs every 6 (six) hours as neededfor wheezing or shortness of breath Qty: 6.7 g, Refills: 3 Associated Diagnoses: Mild persistent asthma, unspecified whether complicated allopurinoL (ZYLOPRIM) 100 mg tablet Take 2 tablets (200 mg total) by mouth daily Qty: 60 tablet, Refills: 2 Comments: Dosage doubled from 100-100 01/11/2024 Associated Diagnoses: Gouty arthritis of foot apixaban (ELIQUIS) 2.5 mg tablet Take 1 tablet (2.5 mg total) by mouth 2 (two) times a day Qty: 60 tablet, Refills: 0 Comments: 03/08/24 - D/C Xarelto. When Paxlovid completed, start Eliquis 2.[address] of Xarelto; Eliquis is preferred medication per BEERS criteria. (Eliquis 5 mg taking 1/2 tablet BID # 30 if cheaper for pt.) Associated Diagnoses: Atrial fibrillation, chronic (CMS/HCC) (HCC) ascorbic acid, vitamin C, 250 mg tablet,chewable Take 250 mg by mouth 3 (three) times a week Take with the iron 325 mg to ensure absorption Monday Qty: 90 tablet, Refills: 1 carbamide peroxide (DEBROX) 6.5 % otic solution Administer 5 drops into each ear as needed for ear pain (monday right ear, monday left ear) Qty: 30 mL, Refills: 1 Associated Diagnoses: Bilateral impacted cerumen cetirizine (ZyrTEC) 10 mg tablet Take 1 tablet (10 mg total) by mouth nightly Qty: 90 tablet, Refills: 3 Associated Diagnoses: Angioedema, subsequent encounter cholecalciferol (VITAMIN D-3) 2000 unit tablet Take 1 tablet (2,000 Units total) by mouth daily empagliflozin (JARDIANCE) 10 mg tablet Take 1 tablet (10 mg total) by mouth daily Qty: 30 tablet, Refills: 11 ferrous fumarate 325 mg (106 mg iron) tablet Take 1 tablet (325 mg total) by mouth 3 (three) times a week Take with the vitamin-C 250 mg chewable tab 3 times weekly. The vitamin C will ensure absorption Qty: 60 tablet, Refills: 1 Associated Diagnoses: Bleeding hemorrhoids; Acute lower GI bleeding; Iron deficiency anemia due to chronic blood loss fluticasone propion-salmeteroL (ADVAIR DISKUS) 100-50 mcg/dose diskus inhaler Inhale 1 puff 2 (two)times a day Rinse mouth with water after use. Do not swallow. furosemide (LASIX) 80 mg tablet Take 1 tablet (80 mg total) by mouth 2 (two) times a day metOLazone (ZAROXOLYN) 5 mg tablet Take 1 tablet (5 mg total) by mouth daily Qty: 14 tablet, Refills: [address] (PROTONIX) 40 mg EC tablet Take 1 tablet (40 mg total) by mouth daily Qty: 90 tablet, Refills: 2 Associated Diagnoses: Chronic GERD polyethylene glycol (MIRALAX) 17 gram packet Take 1 packet (17 g total) by mouth daily as needed for constipation pramipexole (MIRAPEX) 0.75 mg tablet Take 1 tablet (0.75 mg total) by mouth 2 (two) times a day Qty: 60 tablet, Refills: 3 Comments: DX Code Needed PATIENT REQUESTED A NEW REFILL. Associated Diagnoses: Restless legs syndrome propranoloL (INDERAL) 20 mg tablet Take 1 tablet (20 mg total) by mouth 2 (two) times a day with breakfast and lunch spironolactone (ALDACTONE) 25 mg tablet Take 1 tablet (25 mg total) by mouth daily Qty: 30 tablet, Refills: 11 STOP taking these medications potassium chloride ER 20 mEq CR tablet Comments: Reason for Stopping: Outpatient Follow-Up: Future Appointments Date Time Provider Department Center 03/25/2024 9:00 AM Klaus Deshpande MD [facility] Specialty 04/01/2024 9:45 AM Stalin Arauz MD [facility] CAR 122 PSA 04/29/2024 1:00 PM Jadyn Hobson PA [facility] OS 130B Specialty 08/26/2024 1:00 PM Pepper Morgan MD [facility] PC 1. Pepper Morgan MD [address] [place] [address] in 2 to 3 weeks, PCP Elizabeth Villarreal MD Discharge Time: 36 minutes. documented in this encounter Medications at Time [...] ensure absorption Monday 90 tablet 1 01/12/2024 carbamide peroxide (DEBROX) 6.5 % otic solutionIndicatio ns:Impacted Cerumen Administer 5 drops into each ear as needed for ear pain (monday right ear, monday left ear) 30 mL 1 02/08/2024 cetirizine (ZyrTEC) 10 mg tabletIndications :Angioedema, subsequent [...] by mouth 2 (two) times a day pantoprazole DR (PROTONIX) 40 mg EC tabletIndications [...] by mouth daily 30 tablet 11 07/26/2023 allopurinoL (ZYLOPRIM) 100 mg tabletIndications :Gouty arthritis of foot Take 2 tablets (200 mg total) by mouth daily 60 tablet 2 01/11/2024 4 empagliflozin (JARDIANCE) 10 mg tablet Take 1 tablet (10 mg total) by mouth daily 30 tablet 11 05/29/2023 4 ferrous fumarate 325 mg (106 mg iron) tabletIndications :Bleeding hemorrhoids,Acute lower GI bleeding,Iron deficiency anemia due to chronic blood loss Take 1 tablet (325 mg total) by mouth 3 (three) times a week Take with the vitamin-C 250 mg chewable tab 3 times weekly. The vitamin C will ensure absorption 60 tablet 1 01/12/2024 4 metOLazone (ZAROXOLYN) 5 mg tablet Take 1 tablet (5 mg total) by mouth daily 14 tablet 1 03/05/2024 4 pramipexole (MIRAPEX) 0.75 mg tabletIndications :Restless legs syndrome Take 1 tablet (0.75 mg total) by mouth 2 (two) times a day 60 tablet 3 01/28/2024 4 documented as of this encounter Discharge Disposition Disposition Code Departure Means Destination Comment s Discharge to home or self care documented in this encounter Progress Notes * Elizabeth Villarreal MD - 03/16/2024 10:14 AM CDT Daily Progress Note CHIEF COMPLAINT: Shortness of breath. SUBJECTIVE: Interval History: Sitting in bed, appears in no acute distress. Denies shortness of breath. Says that she wants to go home today. No other complaints. OBJECTIVE: Vitals: 24hr Min/Max: Temp Min: 36.4 ??C (97.5 ??F) Max: 36.8 ??C (98.3 ??F) Pulse Min: 72 Max: 100 BP Min: 102/60 Max: 143/93 Resp Min: 20 Max: 24 SpO2 Min: 95 % Max: 100 % Most Recent : Vitals: 03/16/24 0000 03/16/24 0400 03/16/24 0818 03/16/24 0819 BP: 123/72 121/68 112/75 BP Location: Right arm Right arm Right arm Pulse: 86 89 100 Resp: 20 20 20 Temp: 36.8 ??C (98.2 ??F) 36.4 ??C (97.5 ??F) 36.8 ??C (98.3 ??F) TempSrc: Oral Oral Oral SpO2: 95% 98% 98% 99% Weight: Height: No intake/output data recorded. No intake/output data recorded. Current Facility-Administered Medications Medication Dose Route Frequency Provider Last Rate Last Admin acetaminophen (TYLENOL) tablet 650 mg 650 mg oral Q6H PRN Florinda Haile NP 650 mg at 03/15/242108 albuterol HFA (PROVENTIL HFA,VENTOLIN HFA,PROAIR HFA) 90 mcg/actuation inhaler 2 puff 2 puff inhalation Q6H PRN (RT) Florinda Haile NP allopurinoL (ZYLOPRIM) tablet 200 mg 200 mg oral Daily Florinda Haile NP 200 mg at 03/16/24 09 apixaban (ELIQUIS) tablet 2.5 mg 2.5 mg oral BID Florinda Haile NP 2.5 mg at 03/16/24946 ascorbic acid (VITAMIN C) tablet/chewable tablet 250 mg 250 mg oral Once per day on Monday Florinda Haile NP 250 mg at 03/15/242107 cetirizine (ZyrTEC) tablet 5 mg 5 mg oral Nightly Florinda Haile NP 5 mg at 03/15/242106 cholecalciferol (VITAMIN D-3) tablet 2,000 Units 2,000 Units oral Daily Florinda Haile NP 2,000Units at 03/16/24946 empagliflozin (JARDIANCE) tablet 10 mg 10 mg oral Daily Florinda Haile NP 10 mg at 03/16/24946 ferrous sulfate delayed release tablet 65 mg of elemental iron 65 mg of elemental iron oral Daily with breakfast Paulina Bravo NP 65 mg of elemental iron at 03/16/24 0947 fluticasone furoate-vilanteroL (BREO ELLIPTA) 100-25 mcg/dose inhaler 1 puff 1 puff inhalation Daily (RT) Florinda Haile NP 1 puff at 03/16/24 0819 furosemide (LASIX) 10 mg/mL injection 40 mg 40 mg intravenous BID DIURETIC Florinda Haile NP 40mg at 03/16/24 0949 ondansetron (ZOFRAN) injection 4 mg 4 mg intravenous Q6H PRN Florinda Haile NP pantoprazole DR (PROTONIX) extended release tablet 40 mg 40 mg oral Daily Florinda Haile NP 40 mg at 03/16/24 0946 polyethylene glycol (MIRALAX) packet 17 g 17 g oral Daily PRN Florinda Haile NP pramipexole (MIRAPEX) tablet 0.75 mg 0.75 mg oral BID Florinda Haile NP 0.75 mg at 03/16/24 0948 propranoloL (INDERAL) tablet 20 mg 20 mg oral BID with meals (bkfst, lunch) Florinda Haile NP 20 mg at 03/16/24 0947 [Held by Provider] spironolactone (ALDACTONE) tablet 25 mg 25 mg oral Daily Florinda Haile NP Physical Exam: General Appearance: Alert, cooperative, no distress, appears stated age, well developed, well nourished, obese Head: Normocephalic, without obvious abnormality, atraumatic Eyes: Conjunctiva/corneas clear, EOM's intact, both eyes, anicteric Ears: Normal external ear canals, both ears Nose: Nares normal, septum midline, mucosa normal, no drainage Throat: Lips, mucosa, and tongue normal; mucous membranes moist Neck: Supple Lungs: Clear, no wheezes, no crackles Cardiovascular: Ir ir Abdomen: Soft, non-tender, bowel sounds decr, non-distended, obese Extremities: Extremities normal, atraumatic, no cyanosis or edema Skin: Skin color, texture, turgor normal, no rashes Psychosocial: Normal affect and mood ASSESSMENT/PLAN: Shortness of breath on admission, congestive heart failure exacerbation related, resolved. 03/15/[address] showed diffuse mosaic attenuation suggestive of interstitial pulmonary edema versus reactive airways disease. Congestive heart failure exacerbation on admission. 06/15/2023 2D echo showed diastolic dysfunction. On Jardiance, IV Lasix. Cardiology service consulted. Asthma, not in exacerbation. On Breo, albuterol MDI as needed. Trivial mitral regurgitation, mild aortic stenosis, per 06/15/2023 2D echo. Hypertension. Blood pressure controlled. On propranolol, IV Lasix. Atrial fibrillation, rate controlled. On Eliquis. GERD. On Protonix. PVD. 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; successful stenting of the left common iliac artery using 9 x 60 Protege stent, post dilated using 8 mm balloon; successful stenting of the left external iliac artery using 8 x 60 EverFlex stent post dilated using 7 mm balloon; successful recanalization and angioplasty of long occluded segment of the left superficial femoral artery for treatment of the entire segment using 5 mm drug-coated balloons and final stenting of the mid segment of the superficial femoral artery using overlapping 6 mm Zilver self-expanding stents post dilated using a 5 mm balloon.AIF on 03/24/2022 showed 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 02/22/2024 ABIs showed moderate to severe arterial insufficiency at rest in both lower extremities with an ankle-brachial index of 0.60 on the right 0.63 on the left. Restless leg syndrome. On Mirapex. Essential tremor. On propranolol. Gout, asymptomatic. On allopurinol. Obesity. Slight hyponatremia of 133, follow. Hyperkalemia, resolved. Received Lokelma, sodium bicarb, IV Lasix, dextrose, insulin on 03/15/2024. Renal insufficiency with creatinine of 1.16 with GFR of 46, follow. Slight anemia hemoglobin of 11.3, stable, follow. Troponin trend of 27, 36, 19, 20, with delta of 9, -1; nonspecific. D-dimer of 647. Current venous Dopplers are negative for DVT. Chest CT PE protocol showed no evidence of PE. Prophylaxis. Eliquis, Protonix. Disposition. Discharge home later today. * Efren Ramos, [facility] - 03/15/2024 4:37 PM CDT Pharmacy Medication Reconciliation Note Patient Tses Benedict is a 88 y.o. female who presents to [facility] for admission. The prior to admission home medication list was reviewed by pharmacy. Current Facility-Administered Medications: POCT glucose, , , Once AND dextrose (D10W) 10% bolus 500 mL, 500 mL, intravenous, Once, Last Rate: 250 mL/hr at 03/15/24 1500, 500 mL at 03/15/24 1500 AND insulin regular (HumuLIN R, NovoLIN R) 100 unit/mL injection 8 Units, 0.1 Units/kg, intravenous, Once AND POCT glucose, , , q1h AND POCT glucose, , , q3h AND Notify Provider, , , Continuous, Kim Willams MD sodium zirconium cyclosilicate (LOKELMA) packet 10 g, 10 g, oral, Once, Kim Willams MD Current Outpatient Medications: acetaminophen (TYLENOL) 500 mg [...] mouth daily, Disp: 30 tablet, Rfl: 11 ferrous fumarate 325 mg (106 mg iron) tablet, Take 1 tablet (325 mg total) by mouth 3 (three) timesa week Take with the vitamin-C 250 mg chewable tab 3 times weekly. The vitamin C will ensure absorption, Disp: 60 tablet, Rfl: 1 fluticasone propion-salmeteroL (ADVAIR DISKUS) 100-50 mcg/dose diskus inhaler, Inhale 1 puff 2 (two) times a day Rinse mouth with water after use. Do not swallow., Disp: , Rfl: furosemide (LASIX) 80 mg tablet, Take 1 tablet (80 mg total) by mouth 2 (two) times a day, Disp: , Rfl: metOLazone (ZAROXOLYN) 5 mg tablet, Take 1 tablet (5 mg total) by mouth daily, Disp: 14 tablet, Rfl: [address] (PROTONIX) 40 mg EC tablet, Take 1 tablet (40 mg total) by mouth daily, Disp: 90 tablet, Rfl: 2 polyethylene glycol (MIRALAX) 17 gram packet, Take 1 packet (17 g total) by mouth daily as needed for constipation, Disp: , Rfl: potassium chloride ER 20 mEq CR tablet, Take 2 tablets (40 mEq total) by mouth 2 (two) times a day,Disp: 120 tablet, Rfl: 11 pramipexole (MIRAPEX) 0.75 mg tablet, Take 1 [...] mouth daily, Disp: 30 tablet, Rfl: 11 The patient???s home medication list has been reconciled and updated as follows: - Orders from medication that were removed because the patient is no longer taking: Flexeril - Orders that the patient is taking at home were added to the home medication list: Miralax - Orders on the medication list that the patient is taking differently (doses/frequency/formulation): Advair daily to bid Propranolol bid prn to BID Furosemide 120 mg in am and 80 mg in pm to 80 mg BID - Additional comments/recommendations: Per daughter at bedside who provided a medication list that she keeps updated Daughter is familiar with the patient's medications and was able to clarify 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 It was stopped early d/t diarrhea. Xareltowas changed to eliquis with the paxlovid initiation d/t a drug interaction Sources of information for this medication reconciliation include: family member, medication list, patient, and prescription fill history Efren Ramos RPh 03/15/2024 4:30 PM documented in this encounter H&P Notes * Florinda Haile NP - 03/15/2024 4:30 PM CDT History and Physical CHIEF COMPLAINT Chief Complaint Patient presents with Shortness of Breath HPI Patient is a 88 y.o. female with past medical history of asthma, atrial fibrillation, CHF diastolic, DVT left arm, GERD, hypertension, lymphedema and obesity who presents to the emergency room due toshortness of breath which started a couple of days ago and progressively became worse. Patient states she tested positive for COVID last Monday and was was prescribed Paxlovid but had to stop takingit due to it was causing diarrhea. Patient reports wheezing and states she gets short of breath when walking or just moving around. She reports using her inhaler today with no resolution of her symptoms, therefore, she presents to the emergency room for evaluation. She denies chest pain, lightheadedness, dizziness, nausea, vomiting, fever, chills, abdominal pain, constipation, dysuria, hematuria or melena. On arrival to the emergency room T max 97.5, pulse 73, respirations 24, blood pressure 115/71 and O2 saturation 100%. Updraft treatment given. BNP 5198. CXR showing no pneumothorax or pleural effusion. Cardiomediastinal silhouette within normal limits. Mild pulmonary vascular congestion. IV Lasix 40 mg given. D-dimer 647. CT chest showing diffuse mosaic attenuation suggestive of interstitial pulmonary edema versus reactive airways disease. No pulmonary embolus. Troponin 26, 27 and 36. EKG showing atrial fibrillation. Potassium 6.5. Patient received D10, updraft treatment, sodium bicarb and Lokelma. Repeat potassium 5.9. I agree with admitting this patient to the hospital for further evaluation, management and care. PAST MEDICAL HISTORY Asthma Arthritis of ankle Allergic rhinitis Atrial fibrillation Back pain Basal cell carcinoma COVID, 02/2024 CKD stage 3 CHF, diastolic DVT, left arm elbow Essential tremor Fibrocystic breast GERD Heel spur Hypertension History of strangulated hernia History rheumatic fever Lymphedema Menopause Motion sickness Malignant melanoma s/p resection Obese Osteoarthritis PVD. 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; successful stenting of the left common iliac artery using 9 x 60 Protege stent, post dilated using 8 mm balloon; successful stenting of the left external iliac artery using 8 x 60 EverFlex stent post dilated using 7 mm balloon; successful recanalization and angioplasty of long occluded segment of the left superficial femoral artery for treatment of the entire segment using 5 mm drug-coated balloons and final stenting of the mid segment of the superficial femoral artery using overlapping 6 mm Zilver self-expanding stents post dilated using a 5 mm balloon.AIF on 03/24/2022 showed 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 Restless leg syndrome Right carpal tunnel syndrome Tobacco use, quit 01/04/1990 PAST SURGICAL HISTORY Melanoma removal in 1975, per prior notes. Gastroplasty in 1984, per prior notes. Cholecystectomy and hernia repair in 1994, per prior notes. Arthroscopic knee surgery in 2003, per prior notes. 05/20/2009, Phacoemulsification of right eye with implantation of posterior chamber lens, MONICA model #WV3286, +23.5 diopter, serial #[id number]. 03/21/2012, Phacoemulsification of left eye with implantation of posterior chamber lens, West Model ZCB00, +24 diopter, serial number [id number]. 12/25/2013, Excision of pigmented lesion, left lower eyelid lateral part, with primary surgical defect of 1 x 0.5 cm. Reconstruction of secondary surgical defect, left lateral lower eyelid, 1 x 1 cm, with adjacent tissue transfer. 04/22/2014, Right total knee arthroplasty with TruMatch distal femoral cutting block. 02/07/2017, Left total knee arthroplasty. 02/07/2017, Right total knee arthroplasty. 07/08/2019, Right total hip arthroplasty. 11/01/2021, Left total hip arthroplasty. 02/18/2022, AIF showed peripheral vascular disease involving ulcerated plaque in the abdominal aorta and high-grade lesions in the left iliac vessels along with chronic total occlusion of the superficial femoral arteries bilaterally; successful stenting of the left common iliac artery using 9 x 60 Protege stent, post dilated using 8 mm balloon; successful stenting of the left external iliac artery using 8 x 60 EverFlex stent post dilated using 7 mm balloon; successful recanalization and angioplasty of long occluded segment of the left superficial femoral artery for treatment of the entire segment using 5 mm drug-coated balloons and final stenting of the mid segment of the superficial femoral artery using overlapping 6 mm Zilver self-expanding stents post dilated using a 5 mm balloon. 03/24/2022 peripheral angiography ALLERGIES Allergies Allergen Reactions Celecoxib Anaphylaxis Scopolamine Mental status changes Delirium postop after joint replacement due to this medicine Sulfa (Sulfonamide Antibiotics) Anaphylaxis Amlodipine Swelling Lisinopril Swelling Trazodone Swelling Tongue Duloxetine Hcl Unknown Cipro [Ciprofloxacin Hcl] Vomiting Cymbalta [Duloxetine] Fatigue Sleepiness, tiredness possibly related to 20 mg morning dose of this medicine discontinued 11/30/2020 Sinemet [Carbidopa-Levodopa] Other (See comments) Night hines SOCIAL HISTORY Patient lives alone. She has 3 children. He does not smoke, drink alcohol or use any illicit streetdrugs. Her mobility is with Rollator/walk HOME MEDICATIONS Prior to Admission medications Medication Sig Start Date End Date Taking? Authorizing Provider acetaminophen (TYLENOL) 500 mg tablet Take 2 tablets (1,000 mg total) by mouth 2 (two) times a day as needed for pain Yes ProviderLatasha MD albuterol HFA (Proventil HFA) 90 mcg/actuation [...] a day 03/08/24 Yes Pepper Morgan MD ascorbic acid, vitamin C, 250 mg tablet,chewable Take 250 mg by mouth 3 (three) times a week Take with the iron 325 mg to ensure absorption Monday01/12/24 Yes Pepper Morgan MD carbamide peroxide (DEBROX) 6.5 % otic solution Administer 5 drops into each ear as needed for ear pain (monday right ear, monday left ear) 02/08/24 02/07/25 Yes Pepper Morgan MD cetirizine (ZyrTEC) 10 mg tablet Take 1 tablet (10 mg total) by mouth nightly 12/08/22 Yes Pepper Morgan MD cholecalciferol (VITAMIN D-3) 2000 unit tablet Take 1 tablet (2,000 Units total) by mouth daily YesProLatasha hoffman MD empagliflozin (JARDIANCE) 10 mg tablet Take 1 tablet (10 mg total) by mouth daily 05/29/23 Yes Stalin Arauz MD ferrous fumarate 325 mg (106 mg iron) tablet Take 1 tablet (325 mg total) by mouth 3 (three) times a week Take with the vitamin-C 250 mg chewable tab 3 times weekly. The vitamin C will ensure absorption 01/12/24 Yes Pepper Morgan MD fluticasone propion-salmeteroL (ADVAIR DISKUS) 100-50 mcg/dose diskus inhaler Inhale 1 puff 2 (two)times a day Rinse mouth with water after use. Do not swallow. Yes Provider, Historical, MD furosemide (LASIX) 80 mg tablet Take 1 tablet (80 mg total) by mouth 2 (two) times a day Yes Latasha Flannery MD metOLazone (ZAROXOLYN) 5 mg tablet Take 1 tablet (5 mg total) by mouth daily 03/05/24 03/05/25 Yes Stalin Arauz MD pantoprazole DR (PROTONIX) 40 mg EC tablet Take 1 tablet (40 mg total) by mouth daily 01/11/24 Yes Pepper Morgan MD polyethylene glycol (MIRALAX) 17 gram packet Take 1 packet (17 g total) by mouth daily as needed for constipation Yes Latasha Flannery MD potassium chloride ER 20 mEq CR tablet Take 2 tablets (40 mEq total) by mouth 2 (two) times a day 07/19/23 Yes Stalin Arauz MD pramipexole (MIRAPEX) 0.75 mg tablet Take 1 tablet (0.75 mg total) by mouth 2 (two) times a day 01/28/24 Yes Klaus Deshpande MD propranoloL (INDERAL) 20 mg tablet Take 1 tablet (20 mg total) by mouth 2 (two) times a day with breakfast and lunch Yes ProviderLatasha MD spironolactone (ALDACTONE) 25 mg tablet Take 1 tablet (25 mg total) by mouth daily 07/26/23 07/25/24 Yes Elizabeth Villarreal MD fluticasone propion-salmeteroL (ADVAIR DISKUS) 100-50 mcg/dose diskus inhaler Inhale 1 puff daily Rinse mouth with water after use. Do not swallow. Patient taking differently: Inhale 1 puff 2 (two) times a day Rinse mouth with water after use. Do not swallow. 11/27/23 03/15/24 Yes Pepper Morgan MD furosemide (LASIX) 80 mg tablet Take 120mg every monring and 80mg every afternoon. Patient taking differently: Take 1 tablet (80 mg total) by mouth 2 (two) times a day Take 120mg every monring and 80mg every afternoon. 03/05/24 03/15/24 Yes Stalin Arauz MD propranoloL (INDERAL) 20 mg tablet Take 1 tablet (20 mg total) by mouth 2 (two) times a day as needed (Tremor) Patient taking differently: Take 1 tablet (20 mg total) by mouth 2 (two) times a day AM and noon 07/13/23 03/15/24 Yes Pepper Morgan MD cyclobenzaprine (FLEXERIL) 10 mg tablet Take 1 tablet (10 mg total) by mouth nightly as needed for muscle spasms 11/16/21 12/06/21 Puma Johnson MD furosemide (LASIX) 80 mg tablet Take 1 tablet (80 mg total) by mouth daily Patient to take an additional 80mg every day if weight increase. 01/10/24 03/15/24 Stalin Arauz MD metOLazone (ZAROXOLYN) 5 mg tablet Take 1 tablet (5 mg total) by mouth daily 10/30/23 03/15/24 Stalin Arauz MD I have utilized all available immediate resources to obtain, update, or review the patient's current medications (including all prescriptions, [id number] products, herbals, cannabis/cannabidiolproducts, and vitamin/mineral/dietary (nutritional) supplements). REVIEW OF SYSTEMS 14 point review of systems is negative except for what I have already mentioned above in the history of present illness. OBJECTIVE Temp Av.4 ??C (97.5 ??F) Min: 36.4 ??C (97.5 ??F) Max: 36.4 ??C (97.5 ??F) BP Min: 102/60 Max: 115/71 Pulse Av.7 Min: 72 Max: 73 Resp Av Min: 24 Max: 24 SpO2 Av % Min: 100 % Max: 100 % No intake/output data recorded. Weight: Wt Readings from Last 1 Encounters: 03/15/24 82.1 kg (181 lb) PHYSICAL EXAM General: This is a 88 y.o. female in no acute distress. Head: Normocephalic, atraumatic. Eyes: PERRLA, EOMI bilaterally. No conjunctival injection. Nose: Nasal cavity is patent. Throat is clear. Mucus membranes are pink & moist without bleeding. Neck: Supple. No JVD. No lymphadenopathy. Trachea is in the midline position. Lungs: Clear breath sounds bilaterally. No wheezing auscultated. Heart: S1 and S2. No murmur auscultated. Abdomen: Round, soft, nontender. Bowel sounds are present in all four quadrants. Extremities: No cyanosis, clubbing. 1+ pitting edema left lower extremity. Bruising noted to the anterior jaimes bilaterally. Neuro: Patient is awake and alert x 3. Speech is clear and coherent. Psychiatric: Normal mood and affect. Behavior is normal. Skin: Warm and dry. No rashes or lesions. LAB/RADIOLOGY/DIAGNOSTIC: Recent Labs Lab Units 03/15/24 1207 WBC K/cumm 9.6 HEMOGLOBIN g/dL 11.8* HEMATOCRIT % 40.2 PLATELETS K/cumm 370 Recent Labs Lab Units 03/15/24 1628 03/15/24 1329 03/15/24 1207 SODIUM mmol/L -- -- 132* POTASSIUM PLASMA mmol/L -- 5.9* 6.5* CHLORIDE mmol/L -- -- 104 CO2 mmol/L -- -- 22 ANIONGAP mmol/L -- -- 6 GLUCOSE mg/dL -- -- 97 POC GLUCOSE MONITOR mg/dL 138 -- -- BUN SERUM mg/dL -- -- 22 CREATININE mg/dL -- -- 1.09 CALCIUM mg/dL -- -- 9.3 ALBUMIN g/dL -- -- 3.5 ALK PHOS Units/L -- -- 112 ALT Units/L -- -- 25 AST Units/L -- -- 25 BILIRUBIN TOTAL mg/dL -- -- 0.3 Recent Labs Lab Units 03/15/24 1207 WBC K/cumm 9.6 HEMOGLOBIN g/dL 11.8* HEMATOCRIT % 40.2 PLATELETS K/cumm 370 ECG 12 lead Result Date: 03/15/2024 Narrative: Vent Rate: 75 bpm RR Interval: 795 msec MS Interval: 0 msec QRS Duration: 70 msec QT Interval: 357 msec QTC Interval: 386 msec P-R-T [place]: 0 - 67 - 35 degrees IMPRESSION: ATRIAL FIBRILLATION LOW QRS VOLTAGE IN PRECORDIAL LEADS Electronically Signed By: Collin Rich MD, [facility] XR Chest 1 View Result Date: 03/15/2024 Narrative: EXAMINATION: XR CHEST 1 VIEW DATE: 03/15/2024 11:50 AM INDICATION: Pain. COMPARISON: 07/22/2023. Impression: FINDINGS/IMPRESSION: No pneumothorax or pleural effusion. Cardiomediastinal silhouette within normal limits. Mild pulmonary vascular congestion. No acute osseous abnormality. Electronically signed by: Jason Darling II, D.O. JONATHAN Result Date: 02/22/2024 Narrative: [address] [place] [address] Ankle Brachial Index Report Patient Name: TESS BENEDICT I : 1935 (88y 2m) Gender: F Study Date: 02-22-2024 03:38:00 PM Lens Hardener: Saranya Provider: STALIN ARAUZ Quality: Adequate Ref Provider: STALIN ARAUZ PROCEDURES: Arterial Report: A bilateral extremities ankle/brachial index was performed. INDICATIONS: I73.9 Peripheral vascular disease, unspecified. CONCLUSIONS: 1. Moderate to severe arterial insufficiency at rest in both lower extremities with an ankle-brachial index of 0.60 on the right 0.63 on the left. 2. Monophasic to biphasic waveform at the ankle bilaterally. 3. The results are essentially unchanged when compared to prior study in August 2023. FINDINGS: MEASUREMENTS: Right Value Left Value Rt Brachial Pressure 116 mmHg Lt Ankle Pressure 66 mmHg Rt Ankle Pressure 69 mmHg Lt Dorsalis Pedis 73 mmHg Rt Dorsalis Pedis 70 mmHg Lt Toe Pressure 38 mmHg Rt Toe Pressure 49 mmHg Electronically Signed By: Stalin Arauz MD 2024-02-22 17:07:19 CDT Recent Results (from the past 24 hour(s)) Troponin T high-sensitivity series (baseline, 2hr, 4hr, 6hr) Collection Time: 03/15/24 12:07 PM Result Value Ref Range Trop T hs 27 (H) <=14 ng/L Comprehensive metabolic panel Collection Time: 03/15/24 12:07 PM Result Value Ref Range Sodium 132 (L) 135 - 145 mmol/L Potassium, pl 6.5 (Critical) 3.3 - 4.9 mmol/L Chloride 104 97 - 110 mmol/L CO2 22 22 - 32 mmol/L Anion gap 6 2 - 15 mmol/L BUN 22 6 - 25 mg/dL Creatinine 1.09 0.60 - 1.10 mg/dL Glucose 97 70 - 199 mg/dL Calcium 9.3 8.5 - 10.3 mg/dL Bilirubin, total 0.3 0.1 - 1.2 mg/dL Protein, pl 6.7 6.5 - 8.5 g/dL Albumin 3.5 3.5 - 5.0 g/dL Alk phos 112 40 - 130 Units/L ALT 25 7 - 45 Units/L AST 25 10 - 45 Units/L CBC with auto differential Collection Time: 03/15/24 12:07 PM Result Value Ref Range WBC 9.6 3.8 - 9.9 K/cumm Hgb 11.8 (L) 11.9 - 15.5 g/dL Hct 40.2 35.6 - 45.5 % Plt 370 150 - 400 K/cumm MPV 8.6 (L) 9.1 - 12.3 fL RBC 4.41 3.90 - 5.20 M/cumm MCV 91.2 81.3 - 96.4 fL MCH 26.8 (L) 27.1 - 33.3 pg MCHC 29.4 (L) 32.3 - 35.7 g/dL RDW CV 16.5 (H) 11.1 - 14.9 % RDW SD 55.4 (H) 35.7 - 48.1 fL NRBC abs 0.00 0.00 - 0.01 K/cumm Pro B-type natriuretic peptide Collection Time: 03/15/24 12:07 PM Result Value Ref Range NT-proBNP 5,198 (H) <=450 pg/mL Differential, auto Collection Time: 03/15/24 12:07 PM Result Value Ref Range Neutrophil abs 8.0 (H) 1.5 - 6.5 K/cumm Imm gran abs 0.2 (H) 0.0 - 0.1 K/cumm Lymphocyte abs 0.7 (L) 0.8 - 3.3 K/cumm Monocyte abs 0.4 0.2 - 0.8 K/cumm Eosinophil abs 0.2 0.0 - 0.5 K/cumm Basophil abs 0.1 0.0 - 0.1 K/cumm Neutrophil pct 83.5 % Imm gran pct 2.2 % Lymphocyte pct 6.8 % Monocyte pct 4.5 % Eosinophil pct 2.4 % Basophil pct 0.6 % eGFR Collection Time: 03/15/24 12:07 PM Result Value Ref Range eGFR 49 (L) >=60 mL/min/1.73 m2 D-dimer, quantitative Collection Time: 03/15/24 1:29 PM Result Value Ref Range D-Dimer 647 (H) <=499 ng/mL FEU Potassium Collection Time: 03/15/24 1:29 PM Result Value Ref Range Potassium, pl 5.9 (H) 3.3 - 4.9 mmol/L Troponin T high-sensitivity 2-hour Collection Time: 03/15/24 2:24 PM Result Value Ref Range Trop T hs 36 (H) <=14 ng/L Trop T hs delta 9 ng/L Trop T hs interp Equivocal POCT glucose Collection Time: 03/15/24 4:28 PM Result Value Ref Range Glucose, POC 138 70 - 199 mg/dL ASSESSMENT AND PLAN All Diagnosis Present on Admission Present on Admission: 1. Suspect CHF exacerbation, diastolic. BNP 5198. Continue IV Lasix. Jardiance. Consult Cardiology and we appreciate their evaluation and recommendations. Echocardiogram. 2. Hyperkalemia. Potassium 6.5 on admission. Patient received D10, updraft treatment, sodium bicarband Lokelma. Repeat potassium 5.9. Hold oral potassium and Spironolactone. Repeat potassium and evaluate. 3. Elevated D-dimer. CT chest showing no pulmonary embolus. Venous Doppler studies. 4. History of DVT. Continue Eliquis. 5. History of atrial fibrillation. Continue Eliquis. 6. Obesity. BMI 35.35. Her weight loss encouraged. 7. Gout. Continue Allopurinol. 8. Restless leg syndrome. Continue Mirapex. 9. Hyponatremia. Sodium 132. Follow. BMP in a.m.. 10. Essential tremor. On propanolol. 11. DVT and GI prophylaxis initiated. I confirmed that the patient's Advance Care Plan is present, code status is documented, or surrogate decision maker is listed in the patient's medical record. CONSULTS IP CONSULT TO CARDIOLOGY Anticipated date of discharge: To be determined per hospital course Florinda Haile NP 03/15/2024 4:30 PM [facility] Primary Care Physician: Pepper Morgan MD Voice recognition software [employer] was used dictate and transcribe this document. Stain Wiper variances may occur. Despite proofreading, typographical errors may occur. Cosigned by Elizabeth Villarreal MD at 03/16/2024 10:14 AM CDT documented in this encounter Consult Notes * Hyacinth Cortez MD - 03/16/2024 10:41 AM CDTAssociated Order(s): IP CONSULT TO CARDIOLOGY Images from the original note were not included. Cardiology Consultation note Admit date: 03/15/2024 Reason for Consultation: Shortness of breath History of Present Illness: Tess Benedict is a 88 y.o. female with history of diastolic congestive heart failure and chronic atrial fibrillation on Xarelto, presented to the emergency room with worsening shortness of breath. She apparently had a COVID infection about 10 days ago, has recovered well. But she noticed shortness of breath in the last few days, thinks that she was building of fluid. Her BNP was noted elevated. She received Lasix and she says she was feeling ???great?? . She expressed her desire to go home and follow up with Dr. Arauz. She denies any chest pain. No palpitations dizziness or syncope. No nausea or vomiting. She was compliant with her medications. On arrival to the emergency room T max 97.5, pulse 73, respirations 24, blood pressure 115/71 and O2 saturation 100%. Updraft treatment given. BNP 5198. CXR showing no pneumothorax or pleural effusion. Cardiomediastinal silhouette within normal limits. Mild pulmonary vascular congestion. IV Lasix 40 mg given. D-dimer 647. CT chest showing diffuse mosaic attenuation suggestive of interstitial pulmonary edema versus reactive airways disease. No pulmonary embolus. Troponin 26, 27 and 36. EKG showing atrial fibrillation. Potassium 6.5. Past Medical History: Diagnosis Date Allergic rhinitis [...] TOTAL HIP ARTHROPLASTY Left 11/01/2021 Dr. Mckenzie, [facility]. Allergies Allergen Reactions Celecoxib Anaphylaxis Scopolamine Mental [...] date: 1951 Quit date: 1981 Years since quittin.7 Smokeless tobacco: Never Substance and Sexual Activity Drug use: Never Sexual activity: Defer Alcohol Use: Not At Risk (12/28/2022) AUDIT-C Frequency of Alcohol Consumption: Monthly or less Average Number of Drinks: 1 or 2 Frequency of Binge Drinking: Never Family History [...] Respiratory: Negative for cough and sputum production. Gastrointestinal: Negative for nausea, vomiting, abdominal pain and diarrhea. Musculoskeletal: Negative for muscle weakness, extremity redness or swelling. Neurological: Negative for dizziness, focal weakness, tremors, and loss of consciousness. Patient Vitals for the past 24 hrs: BP Temp Temp src Pulse Resp SpO2 Height Weight 03/16/24 0944 -- -- -- 90 -- -- -- -- 03/16/24 0819 -- -- -- -- -- 99 % -- -- 03/16/24 0818 112/75 36.8 ??C (98.3 ??F) Oral 100 20 98 % -- -- 03/16/24 0400 121/68 36.4 ??C (97.5 ??F) Oral 89 20 98 % -- -- 03/16/24 0000 123/72 36.8 ??C (98.2 ??F) Oral 86 20 95 % -- -- 03/15/242099 -- -- -- 78 -- -- -- -- 03/15/242034 -- -- -- -- -- -- 152.4 cm (5') 83.9 kg (185 lb) 03/15/242024 108/64 36.6 ??C (97.8 ??F) Oral 80 20 -- -- -- 03/15/24 1905 143/93 -- -- 77 -- 100 % -- -- 03/15/24 1431 -- -- -- -- -- 100 % -- -- 03/15/24 1420 102/60 -- -- 72 -- 100 % -- -- 03/15/24 1350 110/55 -- -- 73 -- 100 % -- -- 03/15/24 1250 108/65 -- -- -- -- -- -- -- 03/15/24 1056 115/71 36.4 ??C (97.5 ??F) Axillary 73 24 100 % 152.4 cm (5') 82.1 kg (181 lb) Intake/Output Summary (Last 24 hours) at 03/16/2024 1041 Last data filed at 03/16/2024 1035 Gross per 24 hour Intake -- Output 500 ml Net -500 ml Wt Readings from Last 3 Encounters: 03/15/24 83.9 kg (185 lb) 02/08/24 80.7 kg (178 lb) 01/29/24 81.6 kg (180 lb) Cardiac Rhythm: Atrial fibrillation (03/15/242099) Physical Exam: General: Well developed, well nourished, in no acute distress, Skin: Warm and dry Head: Normocephalic, oral mucosa and conjunctivae normal Neck: No thyromegaly or bruits. Carotid pulses 2+ Lungs: Clear to auscultation and percussion. Respirations unlabored Cardiac: PMI and JVP normal, S1 and S2 normal, no murmur, no gallop or rub Abd: Soft, nontender, BS active, no hepatosplenomegaly or masses, no abdominal bruit or enlarged aortic pulsation Extremities: No clubbing, cyanosis. No edema. Femoral pulses 2+. Pedal pulses 2+ Musculoskeletal: Muscle strength normal. No scoliosis. Neurologic: Oriented to person, place, and time. Mood not depressed. Prior to Admission medications Medication Sig Start Date End Date Taking? Authorizing Provider acetaminophen (TYLENOL) 500 mg tablet Take 2 tablets (1,000 mg total) by mouth 2 (two) times a day as needed for pain Yes ProviderLatasha MD albuterol HFA (Proventil HFA) 90 mcg/actuation [...] a day 03/08/24 Yes Pepper Morgan MD ascorbic acid, vitamin C, 250 mg tablet,chewable Take 250 mg by mouth 3 (three) times a week Take with the iron 325 mg to ensure absorption Monday01/12/24 Yes Pepper Morgan MD carbamide peroxide (DEBROX) 6.5 % otic solution Administer 5 drops into each ear as needed for ear pain (monday right ear, monday left ear) 02/08/24 02/07/25 Yes Pepper Morgan MD cetirizine (ZyrTEC) 10 mg tablet Take 1 tablet (10 mg total) by mouth nightly 12/08/22 Yes Pepper Morgan MD cholecalciferol (VITAMIN D-3) 2000 unit tablet Take 1 tablet (2,000 Units total) by mouth daily YesProLatasha hoffman MD empagliflozin (JARDIANCE) 10 mg tablet Take 1 tablet (10 mg total) by mouth daily 05/29/23 Yes Stalin Arauz MD ferrous fumarate 325 mg (106 mg iron) tablet Take 1 tablet (325 mg total) by mouth 3 (three) times a week Take with the vitamin-C 250 mg chewable tab 3 times weekly. The vitamin C will ensure absorption 01/12/24 Yes Pepper Morgan MD fluticasone propion-salmeteroL (ADVAIR DISKUS) 100-50 mcg/dose diskus inhaler Inhale 1 puff 2 (two)times a day Rinse mouth with water after use. Do not swallow. Yes Latasha Flannery MD furosemide (LASIX) 80 mg tablet Take 1 tablet (80 mg total) by mouth 2 (two) times a day Yes Latasha Flannery MD metOLazone (ZAROXOLYN) 5 mg tablet Take 1 tablet (5 mg total) by mouth daily 03/05/24 03/05/25 Yes Stalin Arauz MD pantoprazole DR (PROTONIX) 40 mg EC tablet Take 1 tablet (40 mg total) by mouth daily 01/11/24 Yes Pepper Morgan MD polyethylene glycol (MIRALAX) 17 gram packet Take 1 packet (17 g total) by mouth daily as needed for constipation Yes Latasha Flannery MD potassium chloride ER 20 mEq CR tablet Take 2 tablets (40 mEq total) by mouth 2 (two) times a day 07/19/23 Yes Stalin Arauz MD pramipexole (MIRAPEX) 0.75 mg tablet Take [...] daily 07/26/23 07/25/24 Yes Elizabeth Villarreal MD cyclobenzaprine (FLEXERIL) 10 mg tablet Take 1 tablet (10 mg total) by mouth nightly as needed for muscle spasms 11/16/21 12/06/21 Puma Johnson MD Recent Labs Lab Units 03/16/24 0108 03/15/24 2135 03/15/24 1628 03/15/24 1329 03/15/24 1207 SODIUM mmol/L 133* -- -- -- 132* POTASSIUM PLASMA mmol/L 4.5 5.1* -- 5.9* 6.5* CHLORIDE mmol/L 101 -- -- -- 104 CO2 mmol/L 23 -- -- -- 22 BUN SERUM mg/dL 28* -- -- -- 22 CREATININE mg/dL 1.16* -- -- -- 1.09 [id number] mL/min/1.73 m2 46* -- -- -- 49* GLUCOSE mg/dL 90 -- -- -- 97 POC GLUCOSE MONITOR -- -- < > -- -- CALCIUM mg/dL 8.9 -- -- -- 9.3 ALBUMIN g/dL -- -- -- -- 3.5 < > = values in this interval not displayed. Recent Labs Lab Units 03/15/24 1207 ALK PHOS Units/L 112 BILIRUBIN TOTAL mg/dL 0.3 TOTAL PROTEIN g/dL 6.7 ALT Units/L 25 AST Units/L 25 Recent Labs Lab Units 03/16/24 0108 03/15/24 1207 WBC K/cumm 8.5 9.6 HEMOGLOBIN g/dL 11.3* 11.8* HEMATOCRIT % 37.9 40.2 PLATELETS K/cumm 296 370 Lab Results Component Value Date TSH 3.48 07/18/2023 FREET4 1.30 07/18/2023 Lab Results Component Value Date CHOL 128 07/22/2023 TRIG 96 07/22/2023 HDL 45 07/22/2023 LDLCALC 64 07/22/2023 Radiology Testing: US Vein Duplex Lower Extremity Bilateral Complete Result Date: 03/16/2024 No deep venous thrombosis in the lower extremities. Electronically signed by: Rom Hull M.D. CT Chest PE (CTA) W Contrast Result Date: 03/15/2024 1. Diffuse mosaic attenuation suggestive of interstitial pulmonary edema versus reactive airways disease. 2. No pulmonary embolus. 3. Chronic findings as above. Electronically signed by: Jason Darling II, D.O. XR Chest 1 View Result Date: 03/15/2024 FINDINGS/IMPRESSION: No pneumothorax or pleural effusion. Cardiomediastinal silhouette within normal limits. Mild pulmonary vascular congestion. No acute osseous abnormality. Electronically signed by: Jason Darling II, D.O. Cardiac Testing: Echocardiogram: CONCLUSIONS: Technically difficult study with limited views. [...] by planimetry 1.7 cm2. No aortic regurgitation. Electronically Signed By: Latanya Fitzgerald DO, DEANNA, SOLANGE MCINTYRE 2023-06-15 16:09:39 [employer] Cardiac cath: EKG: CXR: Impression: HFpEF acute on chronic exacerbation No CT or ACS Recent COVID infection History of atrial fibrillation on Eliquis Chronic tobacco use History of DVT/left upper extremity History of PAD and stents Renal failure, chronic kidney disease Plan: I had a detailed discussion with the patient about all the relevant issues here, reviewed all the data, including clinical presentation, exam findinds, test/lab results and current management and offered advice. Continue with current cardiac management with suggested changes and or recommendations.It appears she may have demand related heart failure exacerbation related to her recent COVID infection. She quickly responded to intravenous Lasix and is feeling good. She has no obvious evidence offluid overload. She was already on Lasix at home, and can be discharged on increased dose until shefollows with Dr. Arauz soon in the office. Patient cleared for discharge from cardiac standpoint. Medical management per admitting team. Thank you for the consultation, if I may be of any further help, please do not hesitate to contact, Hyacinth Cortez MD CC: Pepper Morgan MD Rudomiotov, Olga, MD documented in this encounter ED Notes * Kim Willams MD - 03/15/2024 12:38 PM CDTAssociated Order(s): Critical Care HPI Chief Complaint Patient presents with Shortness of Breath Patient is a 88 y/o female complaining of SOB for several days. She has some cough. She has no fever or chest pain. She tested positive for COVID about 10 days ago and was given medication, but had to stop taking it because it was causing diarrhea. She also has history of heart failure. She states that she has been taking all her medications. Patient History: Patient Active Problem List Diagnosis Date Noted Chronic blood loss anemia 02/08/2024 CKD stage 3b, GFR 30-44 ml/min ([facility]) 01/11/2024 Prediabetes 01/11/2024 Bleeding hemorrhoids 01/11/2024 Acute lower GI bleeding 01/11/2024 Gouty arthritis of foot 11/24/2023 Esophageal dysphagia 11/24/2023 Skin tear of right forearm without complication 09/27/2023 Atherosclerosis of [place] arteries of extremities with intermittent claudication, bilateral legs ([facility]) 07/31/2023 [place] of macula of both eyes 05/30/2023 Mild persistent asthma 03/13/2023 Class 1 obesity with serious comorbidity and body mass index (BMI) of 34.0 to 34.9 in adult 02/07/2023 Gait disturbance 11/11/2022 Acute on chronic heart failure with preserved ejection fraction (CMS/HCC) ([facility]) 07/25/2022 Postural kyphosis of cervicothoracic region 01/24/2022 half-way current use of anticoagulant 11/16/2021 Peripheral arterial disease (HCC) 11/09/2021 Shortness of breath 04/21/2021 Atrial fibrillation (CMS/HCC) ([facility]) 04/21/2021 Iron deficiency anemia, unspecified 08/08/2019 Bariatric surgery status 04/04/2017 Knee joint replacement status, bilateral 04/04/2017 Spinal stenosis of lumbar region with neurogenic claudication 12/17/2016 Macular hole 05/04/2016 History of malignant melanoma 02/10/2015 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 Chronic GERD 11/02/2013 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 11/02/2013 Restless legs syndrome 11/02/2013 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 CHF (congestive heart failure) (CMS/HCC) ([facility]) Cough DVT (deep venous thrombosis) (CMS/HCC) ([facility]) 1976 upper left arm near elbow--- Fibrocystic breast GERD (gastroesophageal reflux disease) 4, not currently para 3 miss 1 Heel spur, unspecified laterality Hx of rheumatic fever HX OTHER MEDICAL 1992 strangulated hernia HX OTHER MEDICAL back pain; [...] side. HERNIA REPAIR Hernia repair KNEE ARTHROSCOPY 2002 Arthroscopy knee KNEE ARTHROSCOPY Arthroscopy knee OTHER SURGICAL HISTORY 1991 strangulated hernia: hernia repair OTHER SURGICAL HISTORY 2002 Cancer, basal Cell: resection with skin graft REPLACEMENT TOTAL KNEE Left 02/07/2017 Dr. Renea ENGLISH TOTAL KNEE Right TOTAL HIP ARTHROPLASTY Right 06/2019 The successful right hip replacement Dr. Mckenzie TOTAL HIP ARTHROPLASTY Left 11/01/2021 Dr. Mckenzie, [facility]. Family History Problem Relation Age of Onset Cancer Other Family history of Cancer, unknown; Arthritis Other Family history of Arthritis; Abdominal Aortic Aneurysm Father COPD Father Social History Tobacco Use Smoking status: Former Current packs/day: 0.00 Average packs/day: 2.0 packs/day for 30.0 years (60.0 ttl pk-yrs) Types: Cigarettes Start date: 1951 Quit date: 1982 Years since quittin.7 Smokeless tobacco: Never Vaping Use Vaping status: Never Used Substance and Sexual Activity Alcohol use: Not Currently Drug use: Never Sexual activity: Defer Social History Social History Narrative Not on file Review of Systems Review of Systems Constitutional: Negative for chills and fever. Eyes: Negative for visual disturbance. Respiratory: Positive for cough and shortness of breath. Cardiovascular: Positive for leg swelling. Negative for chest pain. Gastrointestinal: Negative for abdominal pain, diarrhea, nausea and vomiting. Genitourinary: Negative for dysuria and hematuria. Musculoskeletal: Negative for back pain and neck pain. Neurological: Negative for headaches. All other systems reviewed and are negative. Physical Exam ED Triage Vitals [03/15/24 1056] Temp Pulse Resp BP SpO2 36.4 ??C (97.5 ??F) 73 24 115/71 100 % Temp src Heart Rate Source Patient Position BP Location FiO2 (%) Axillary -- -- -- -- Height Height Method Weight Weight Method 1.524 m (5') Stated 82.1 kg (181 lb) Stated Physical Exam Vitals and nursing note reviewed. Constitutional: General: She is not in acute distress. Appearance: She is well-developed. HENT: Head: Normocephalic and atraumatic. Nose: Nose normal. Eyes: Conjunctiva/sclera: Conjunctivae normal. Cardiovascular: Rate and Rhythm: Normal rate and regular rhythm. Pulmonary: Effort: Pulmonary effort is normal. Breath sounds: Normal breath sounds. Abdominal: Palpations: Abdomen is soft. Tenderness: There is no abdominal tenderness. Musculoskeletal: General: Normal range of motion. Cervical back: Normal range of motion and neck supple. Skin: General: Skin is warm. Findings: No rash. Neurological: Mental Status: She is alert and oriented to person, place, and time. Labs Reviewed CBC WITH AUTO DIFFERENTIAL - Abnormal Result Value WBC 9.6 Hgb 11.8 (*) Hct 40.2 Plt 370 MPV 8.6 (*) RBC 4.41 MCV 91.2 MCH 26.8 (*) MCHC 29.4 (*) RDW CV 16.5 (*) RDW SD 55.4 (*) NRBC abs 0.00 DIFFERENTIAL AUTO - Abnormal Neutrophil abs 8.0 (*) Imm gran abs 0.2 (*) Lymphocyte abs 0.7 (*) Monocyte abs 0.4 Eosinophil abs 0.2 Basophil abs 0.1 Neutrophil pct 83.5 Imm gran pct 2.2 Lymphocyte pct 6.8 Monocyte pct 4.5 Eosinophil pct 2.4 Basophil pct 0.6 TROPONIN T HIGH-SENSITIVITY SERIES (BASELINE, 2HR, 4HR, 6HR) COMPREHENSIVE METABOLIC PANEL PRO B-TYPE NATRIURETIC PEPTIDE D-DIMER, QUANTITATIVE TROPONIN T HIGH-SENSITIVITY 2-HOUR TROPONIN T HIGH-SENSITIVITY 4-HR TROPONIN T HIGH-SENSITIVITY 6-HOUR XR Chest 1 View Final Result FINDINGS/IMPRESSION: No pneumothorax or pleural effusion. Cardiomediastinal silhouette within normal limits. Mild pulmonary vascular congestion. No acute osseous abnormality. Electronically signed by: Jason Darling II, D.O. Critical Care Performed by: Kim Willams MD Authorized by: Kim Willams MD Critical care provider statement: As reflected in the history, physical exam, orders, notes, and/or MDM, I was personally present while the patient was critically ill and provided critical care services for 35 minutes, excluding timeinvolved in separately billable procedures. Critical care was necessary to treat or prevent imminent or life- threatening deterioration of the following condition(s): acute congestive heart failure excerbation (CHF) hyperkalemia management Critical care was time spent by me providing the following: continuous telemetry and continuous pulse oximetry acute diuresis hyperkalemia medical management I provided emergent necessary critical care medicine services to this patient. I ordered and reviewed test results and/or imaging studies. I spent time discussing the management of this critically ill patient with consultants and the medical staff. I spent time discussing the management and therapeutic options for this critically ill patient with the patient themselves or with the appropriate designated surrogate decision-maker. I spent time documenting in the medical record. I admitted this patient to a continuous cardiac monitored bed. MDM Medical Decision Making Problems Addressed: Acute on chronic diastolic CHF (congestive heart failure) (CMS/HCC) (HCC): chronic illness or injury with exacerbation, progression, or side effects of treatment Hyperkalemia: acute illness or injury Amount and/or Complexity of Data Reviewed Labs: ordered. Radiology: ordered. ECG/medicine tests: ordered. Risk OTC drugs. Prescription drug management. Decision regarding hospitalization. Critical Care Total time providing critical care: 35 minutes 3:[address] Anderson, who will admit and recommends cardiology consult. 3:54 PM Discussed with NOEL Gonzalez (cardiology), who agrees to consult. Final diagnoses: Acute on chronic diastolic CHF (congestive heart failure) (CMS/HCC) (HCC) Hyperkalemia Disposition: Admit Condition: Stable Kim Willams MD 03/15/24 1731 * Cora Alford, XU - 03/15/2024 10:50 AM CDT Pt to ED from home with CO SOB for 1-2 days. Pt states she has a hx of CHF and states she has been taking her water pill. Pt states she just got over covid last week. Pt denies pain.Pt O2 sat 100% intriage but pt placed on 2L nasal cannula for comfort documented in this encounter Miscellaneous Notes * Plan of Care - Aryan Fernandez - 03/16/2024 10:33 AM CDT Problem: Discharge Planning Goal: Understanding discharge needs will improve Outcome: Progressing Goals: Clinical Goals for the Shift: stable vitals, safety and promote comfort Summary: Problem: Discharge Planning Goal: Understanding discharge needs will improve Outcome: Progressing Problem: Activity Goal: Risk for activity intolerance and fatigue will decrease Outcome: Progressing Goal: Ability to tolerate increased activity will improve Outcome: Progressing Goal: Ability to avoid complications of mobility impairment will improve Outcome: Progressing Problem: Physical Regulation Goal: Will remain free from infection Outcome: Progressing Goal: Ability to maintain clinical measurements within normal limits will improve Outcome: Progressing Goal: Ability to maintain body temperature in the normal range will improve Outcome: Progressing Problem: Self-Care Goal: Ability to participate in self-care as condition permits will improve Outcome: Progressing Problem: Tissue Perfusion Goal: Adequacy of tissue perfusion will improve Outcome: Progressing Problem: Fall Risk Goal: Ability to state ways to decrease the risk of falls will improve Outcome: Progressing Goal: Will remain free from falls Outcome: Progressing Goal: Will remain free from injury from falls Outcome: Progressing Problem: Skin Integrity Impairment Risk Goal: Mobility will improve Outcome: Progressing Goal: Understanding of ways to prevent future skin breakdown will improve Outcome: Progressing Goal: Nutritional status will improve Outcome: Progressing Goal: Risk for impaired skin integrity will decrease Outcome: Progressing * Plan of Care - Jessy Delacruz RN - 03/15/2024 11:08 PM CDT Goals: Clinical Goals for the Shift: monitor vs, pain management, safety, education, rest Summary: Assessment of patient???s baseline is established at the beginning of the shift in flowsheets. Patient reassessed per order, unexpected findings and/or deviations from baseline are captured in flowsheets. Frequent safety checks and comfort rounds provided. Orders and/or nursing care completed as indicated. Patient monitored for response to interventions and treatments as documented in flowsheets. . Plan of care discussed with patient/direct marketing representative, including as it relates to Principal Problem: Acute on chronic diastolic CHF (congestive heart failure) (CMS/HCC) ([facility]) Problem: Discharge Planning Goal: Understanding discharge needs will improve Outcome: Ongoing Problem: Activity Goal: Risk for activity intolerance and fatigue will decrease Outcome: Ongoing Goal: Ability to tolerate increased activity will improve Outcome: Ongoing Goal: Ability to avoid complications of mobility impairment will improve Outcome: Ongoing Problem: Physical Regulation Goal: Will remain free from infection Outcome: Ongoing Goal: Ability to maintain clinical measurements within normal limits will improve Outcome: Ongoing Goal: Ability to maintain body temperature in the normal range will improve Outcome: Ongoing Problem: Self-Care Goal: Ability to participate in self-care as condition permits will improve Outcome: Ongoing Problem: Tissue Perfusion Goal: Adequacy of tissue perfusion will improve Outcome: Ongoing Problem: Fall Risk Goal: Ability to state ways to decrease the risk of falls will improve Outcome: Ongoing Goal: Will remain free from falls Outcome: Ongoing Goal: Will remain free from injury from falls Outcome: Ongoing Problem: Skin Integrity Impairment Risk Goal: Mobility will improve Outcome: Ongoing Goal: Understanding of ways to prevent future skin breakdown will improve Outcome: Ongoing Goal: Nutritional status will improve Outcome: Ongoing Goal: Risk for impaired skin integrity will decrease Outcome: Ongoing * ED Triage Provider Note - Slick Villaseñor PA - 03/15/2024 11:33 AM CDT 88 F with a history of CHF presents reporting shortness of breath. Patient attributes her symptoms to her CHF. Denies fever, chills, chest pain, or malaise. Reports recently recovering from COVID 1 week ago. documented in this encounter Plan of Treatment Not on file documented as of this encounter Goals Goal Patient Goal Type Associated Problems Recent Progress Patient-Stated? Author [facility] Improving( 3:34 PM CDT) Domiitla Gaston, RN Note: Patient will establish a comfort-function goal and identify the pain level that will allow the patient to perform desired activities and achieve an acceptable quality of life. documented as of this encounter Procedures Procedure Name Priority Date/Time Associated Diagnosis Comments US VEIN DUPLEX LOWER EXTREMITY BILATERAL COMPLETE IP Routine 03/16/2024 9:00 AM CDT EGFR Routine 03/16/2024 1:08 AM CDT DIFFERENTIAL AUTO Routine 03/16/2024 1:0 8 AM CDT CBC WITH AUTO DIFFERENTIAL Routine 03/16/2024 1:08 AM CDT BASIC METABOLIC PANEL Routine 03/16/2024 1:08 AM CDT TROPONIN T HIGH-SENSITIVITY 6-HOUR Timed 03/15/2024 9:35 PM CDT POTASSIUM LEVEL Routine 03/15/2024 9:[address] CHEST PE W CONTRAST ED 03/15/2024 5:38 PM CDT TROPONIN T HIGH-SENSITIVITY 4-HR Timed 03/15/2024 4:40 PM CDT POCT GLUCOSE DEVICE Routine 03/15/2024 4 :28 PM CDT TROPONIN T HIGH-SENSITIVITY 2-HOUR Timed 03/15/2024 2:24 PM CDT D-DIMER, QUANTITATIVE STAT 03/15/2024 1:29 PM CDT POTASSIUM LEVEL STAT 03/15/2024 1:29 PM CDT MS CRITICAL CARE ILL/INJURED PATIENT INIT 30-74 MIN Routine 03/15/2024 12:38 PM CDT TROPONIN T HIGH-SENSITIVITY SERIES (BASELINE, 2HR, 4HR, 6HR) STAT 03/15/2024 12:07 PM CDT EGFR STAT 03/15/2024 12:07 PM CDT DIFFERENTIAL AUTO STAT 03/15/2024 12: 07 PM CDT PRO B-TYPE NATRIURETIC PEPTIDE STAT 03/15/2024 12:07 PM CDT CBC WITH AUTO DIFFERENTIAL STAT 03/15/2024 12:07 PM CDT COMPREHENSIVE METABOLIC PANEL STAT 03/15/2024 12:07 PM CDT XR CHEST 1 VIEW ED 03/15/2024 12:03 PM CDT ECG 12-LEAD Routine 03/15/2024 10:58 AM CDT documented in this encounter Results * US Vein Duplex Lower Extremity Bilateral Complete (03/16/2024 9:00 AM CDT) Anatomical Region Laterality Modality Vascular Bilateral Ultrasound 03/16/2024 9:20 AM CDT Impressions 03/16/2024 9:20 AM CDT No deep venous thrombosis in the lower extremities. Electronically signed by: Rom Hull M.D. Narrative 03/16/2024 9:20 AM CDT EXAMINATION: US VEIN DUPLEX LOWER EXTREMITY BILATERAL COMPLETE DATE: 03/16/2024 6:30 AM HISTORY: r/o dvt FINDINGS: Grayscale, color Doppler and spectral Doppler images were obtained. The right and left common femoral, superficial femoral, deep femoral, popliteal, posterior tibial and peroneal veins have normal and augmentation. ??Venous reflux is noted in the right superficial femoral and popliteal veins. ??Otherwise, antegrade flow is noted bilaterally. Procedure Note Rom Hull MD - 03/16/2024 EXAMINATION: US VEIN DUPLEX LOWER EXTREMITY BILATERAL COMPLETE DATE: 03/16/2024 6:30 AM HISTORY: r/o dvt FINDINGS: Grayscale, color Doppler and spectral Doppler images were obtained. The right and left common femoral, superficial femoral, deep femoral, popliteal, posterior tibial and peroneal veins have normal and augmentation. Venous reflux is noted in the right superficial femoral and popliteal veins. Otherwise, antegrade flow is noted bilaterally. IMPRESSION: No deep venous thrombosis in the lower extremities. Electronically signed by: Rom Hull M.D. us Florinda Haile NP IMG US PROCEDURES Final Resu lt * (ABNORMAL) eGFR (03/16/2024 1:08 AM CDT) eGFR 46(L) >=60 mL/min/1. 73 m2 Comment: Interpretive Data [...] interpretive data was last reviewed 2021. Blood 03/16/2024 1:08 AM CDT 03/16/2024 1:18 AM CDT us Florinda Haile NP LAB BLOOD ORDERABLES Final R esult [facility] [id number] Department [place] [address] * (ABNORMAL) Differential, auto (03/16/2024 1:08 AM CDT) Neutrophil abs 6.5 1.5 - 6.5 K/cumm Imm gran abs 0.3(H) 0.0 - 0.1 K/cumm [facility] Lymphocyte abs 0.8 0.8 - 3.3 K/cumm [facility] Monocyte abs 0.6 0.2 - 0.8 K/cumm [facility] Eosinophil abs 0.2 0.0 - 0.5 K/cumm [facility] Basophil abs 0.1 0.0 - 0.1 K/cumm [facility] Neutrophil pct 77.1 % [facility] Comment: Interpretive Data Percent cell count reference ranges are not reported, since discordance with absolute values may lead to misinterpretation of CBC data. Current Interpretive Data was last revised on 2017. Imm gran pct 3.2 % [facility] Comment: Interpretive Data Percent cell count reference ranges are not reported, since discordance with absolute values may lead to misinterpretation of CBC data. Current Interpretive Data was last revised on 2017. Lymphocyte pct 9.8 % [facility] Comment: Interpretive Data Percent cell count reference ranges are not reported, since discordance with absolute values may lead to misinterpretation of CBC data. Current Interpretive Data was last revised on 2017. Monocyte pct 6.6 % [facility] Comment: Interpretive Data Percent cell count reference ranges are not reported, since discordance with absolute values may lead to misinterpretation of CBC data. Current Interpretive Data was last revised on 2017. Eosinophil pct 2.5 % [facility] Comment: Interpretive Data Percent cell count reference ranges are not reported, since discordance with absolute values may lead to misinterpretation of CBC data. Current Interpretive Data was last revised on 2017. Basophil pct 0.8 % [facility] Comment: Interpretive Data Percent cell count reference ranges are not reported, since discordance with absolute values may lead to misinterpretation of CBC data. Current Interpretive Data was last revised on 2017. Blood 03/16/2024 1:08 AM CDT 03/16/2024 1:18 AM CDT Florinda Haile HR DIRECTOR LAB BLOOD ORDERABLES Final R [facility] Performing Organization Address City/[facility]/ZIP Co de Phone Number [facility] [id number] Department [place] [address] * (ABNORMAL) Basic metabolic panel (03/16/2024 1:08 AM CDT) Sodium 133(L) 135 - 145 mmol/L Potassium, pl 4.5 3.3 - 4.9 mmol/L [facility] Chloride 101 97 - 110 mmol/L [facility] CO2 23 22 - 32 mmol/L [facility] Anion gap 9 2 - 15 mmol/L [facility] BUN 28(H) 6 - 25 mg/dL [facility] Creatinine 1.16(H) 0.60 - 1.10 mg/dL [facility] Glucose 90 70 - 199 mg/dL [facility] Comment: Interpretive Data Fasting glucose >/= 126 [...] interpretive data was last revised 2022. Calcium 8.9 8.5 - 10.3 mg/dL [facility] Blood 03/16/2024 1:08 AM CDT 03/16/2024 1:18 AM CDT Florinda Haile NP LAB BLOOD ORDERABLES Final R ult Performing Organization Address City/[facility]/ZIP Co de Phone Number [facility] [id number] Department [place] [address] * (ABNORMAL) CBC with auto differential (03/16/2024 1:08 AM CDT) WBC 8.5 3.8 - 9.9 K/cumm Hgb 11.3(L) 11.9 - 15.5 g/dL [facility] Hct 37.9 35.6 - 45.5 % [facility] Plt 296 150 - 400 K/cumm [facility] MPV 8.5(L) 9.1 - 12.3 fL [facility] RBC 4.18 3.90 - 5.20 M/cumm [facility] MCV 90.7 81.3 - 96.4 fL [facility] MCH 27.0(L) 27.1 - 33.3 pg [facility] MCHC 29.8(L) 32.3 - 35.7 g/dL [facility] RDW CV 16.5(H) 11.1 - 14.9 % [facility] RDW SD 54.4(H) 35.7 - 48.1 fL [facility] NRBC abs 0.00 0.00 - 0.01 K/cumm [facility] Blood 03/16/2024 1:08 AM CDT 03/16/2024 1:18 AM CDT us Florinda Haile NP LAB BLOOD ORDERABLES Final R esult Performing Organization Address City/[facility] Co de Phone Number [facility] [id number] Department [place] [address] * (ABNORMAL) Potassium (03/15/2024 9:35 PM CDT) Potassium, pl 5.1(H) 3.3 - 4.9 mmol/L Blood 03/15/2024 9:35 PM CDT 03/15/2024 9:45 PM CDT Florinda Haile NP LAB BLOOD ORDERABLES Final R esult [facility] [address] Department [place] [address] * (ABNORMAL) Troponin T high-sensitivity 6-hour (03/15/2024 9:35 PM CDT) Trop T hs 20(H) <=14 ng/L Comment: Interpretive Data For further hscTnT resources including the diagnostic algorithm and an aid in interpretation, copy and paste this link: https://nrl.testcatalog.org/show/hsTrop Current Interpretive Data last revised 2020. Trop T hs delta See Comment ng/L [facility] Comment:Inappropriate collec tion time to report a delta. Trop T hs pct delta See Comment % [facility] Comment:Inappropriate collec tion time to report a delta. Trop T hs interp See Comment [facility] Comment:Inappropriate collec tion time to report a delta. Blood 03/15/2024 9:35 PM CDT 03/15/2024 9:45 PM CDT Slick BRUCE LAB BLOOD ORDERABLES Final Result [facility] [id number] Department [place] [address] * CT Chest PE (CTA) W Contrast (03/15/2024 5:38 PM CDT) Anatomical Region Laterality Modality Body N/A Computed Tomogra phy 03/15/2024 5:44 PM CDT Impressions 03/15/2024 5:44 PM CDT 1. ??Diffuse mosaic attenuation suggestive of interstitial pulmonary edema versus reactive airways disease. 2. ??No pulmonary embolus. 3. ??Chronic findings as above. Electronically signed by: Jason Darling II, D.O. Narrative 03/15/2024 5:44 PM CDT EXAMINATION: CT CHEST PE (CTA) W CONTRAST HISTORY: Suspected PE TECHNIQUE: Computed tomographic images were acquired using a chest angiographic protocol optimized for pulmonary embolism. ??Contrast enhanced transaxial images were obtained following the intravenous administration of 69 ml of nonionic contrast. ??Multiplanar reformatted images and three-dimensional images were obtained on the 3-D workstation and sent to the PACS archival system. ?? COMPARISON: None Findings: No pulmonary embolus. ??No evidence of right heart strain. ??Mild atherosclerotic calcifications in the aorta and branch vessels. Thyroid and thoracic inlet structures are unremarkable. ??No mediastinal or hilar lymphadenopathy. ??Upper abdominal structures are unremarkable as seen. ??No acute osseous abnormality. ??No suspicious lytic or sclerotic lesions. ??Mild multilevel endplate changes in the visualized spine. ??No pneumothorax or pleural effusion. ??No pulmonary consolidation. ??Mild mosaic attenuation throughout the lung parenchyma bilaterally. Procedure Note Jason Darling II, - 03/15/2024 EXAMINATION: CT CHEST PE (CTA) W CONTRAST [...] consolidation. Mild mosaic attenuation throughout the lung parenchyma bilaterally. IMPRESSION: 1. Diffuse mosaic attenuation suggestive of interstitial pulmonary edema versus reactive airways disease. 2. No pulmonary embolus. 3. Chronic findings as above. Electronically signed by: Jason Darling II, D.O. Kim Willams MD [facility] [place] PROCEDURES Final Result * (ABNORMAL) Troponin T high-sensitivity 4-hour (03/15/2024 4:40 PM CDT) Trop T hs 19(H) <=14 ng/L Comment: Interpretive Data For further hscTnT resources including the diagnostic algorithm and an aid in interpretation, copy and paste this link: https://nrl.testcatalog.org/show/hsTrop Current Interpretive Data last revised 2020. Trop T hs delta -8 ng/L [facility] Trop T hs interp Equivocal [facility] Blood 03/15/2024 4:40 PM CDT 03/15/2024 4:47 PM CDT Slick BRUCE LAB BLOOD ORDERABLES Final Result Performing Organization Address [facility] Co de Phone Number [facility] [id number] [place] [address] * POCT glucose (03/15/2024 4:28 PM CDT) Glucose, POC 138 70 - 199 mg/dL Blood 03/15/2024 4:28 PM CDT 03/15/2024 4:28 PM CDT Sammy Anderson MD LAB POCT ORDERABLES - DEVICE Final Result Performing Organization Address [facility] de Phone Number CHIDI [id number] [place] [address] * (ABNORMAL) Troponin T high-sensitivity 2-hour (03/15/2024 2:24 PM CDT) Trop T hs 36(H) <=14 ng/L Comment: Interpretive Data For further hscTnT resources including the diagnostic algorithm and an aid in interpretation, copy and paste this link: https://nrl.[email or web address].org/show/[email or web address] Current Interpretive Data last revised 2020. Trop T hs delta 9 ng/L C[facility] CH Trop T hs interp Equivocal [facility]ERN[facility] CH Blood 03/15/2024 2:24 PM CDT 03/15/2024 2:28 PM CDT Slick BRUCE LAB BLOOD ORDERABLES Final Result Performing Organization Address [facility] Co de Phone Number CHIDI VAUGHAN [id number] Department [place] [address] * (ABNORMAL) Potassium (03/15/2024 1:29 PM CDT) Potassium, pl 5.9(H) 3.3 - 4.9 mmol/L Blood 03/15/2024 1:29 PM CDT 03/15/2024 1:29 PM CDT Kim Willams MD LAB BLOOD ORDERABLES Final Resu lt Performing Organization Address [facility] Co de Phone Number CHIDI VAUGHAN [phone] [facility] [place] [address] * (ABNORMAL) D-dimer, quantitative (03/15/2024 1:29 PM CDT) D-Dimer 647(H) <=499 ng/mL FEU Comment: Interpretive data FDA approved the D-dimer, in conjunction with a low or moderate pretest probability score, to exclude venous thromboembolic events (VTE) (PE and DVT) in outpatients when the D-dimer result is < 500 ng/ml FEU. ?? Evidence supports using an age-adjusted D-dimer cut-off for outpatients older than 50 (age x 10) to improve specificity without sacrificing sensitivity. Example: age 68, VTE cut-off 680 ng/ml FEU. References; Schouten HT et al. Brit Med J. 2013;346:f2492. Alden et al. Annals Int Med. 2015;163:701-11. Current interpretive data was last revised on 2019. Blood 03/15/2024 1:29 PM CDT 03/15/2024 1:29 PM CDT Kim Willams MD LAB BLOOD ORDERABLES Final Resu lt Performing Organization Address [facility] Co de Phone Number CHIDI VAUGHAN [phone] [place] [address] * MS CRITICAL CARE ILL/INJURED PATIENT INIT 30-74 MIN (03/15/2024 12:38 PM CDT) Narrative Kim Willams MD - 03/15/2024 12:38 PM CDT Kim Willams MD ? 03/15/2024 ??5:31 PM Critical Care Performed by: Kim Willams MD Authorized by: Kim Willams MD ?? Critical care provider statement: As reflected in the history, physical exam, orders, notes, and/or MDM, I was personally present while the patient was critically ill and provided critical care services for 35 minutes, excluding time involved in separately billable procedures. ??Critical care was necessary to treat or prevent imminent or life-threatening deterioration of the following condition(s): ?? acute congestive heart failure excerbation (CHF) ?? hyperkalemia management ??Critical care was time spent by me providing the following: ? continuous telemetry and continuous pulse oximetry ?? acute diuresis ?? hyperkalemia medical management ?? I provided emergent necessary critical care medicine services to this patient. I ordered and reviewed test results and/or imaging studies. I spent time discussing the management of this critically ill patient with consultants and the medical staff. I spent time discussing the management and therapeutic options for this critically ill patient with the patient themselves or with the appropriate designated surrogate decision-maker. I spent time documenting in the medical record. I admitted this patient to a continuous cardiac monitored bed. us Kim Willams MD IN CLINIC/BEDSIDE ORDERABLES Fi nal Result * (ABNORMAL) eGFR (03/15/2024 12:07 PM CDT) [facility] eGFR 49(L) >=60 mL/min/1. 73 m2 Comment: Interpretive Data [...] interpretive data was last reviewed 2021. Blood 03/15/2024 12:0 7 PM CDT 03/15/2024 12:13 PM CDT Slick BRUCE LAB BLOOD ORDERABLES Final Result [facility] [id number] [place] [address] * (ABNORMAL) Differential, auto (03/15/2024 12:07 PM CDT) Neutrophil abs 8.0(H) 1.5 - 6.5 K/cumm Imm gran abs 0.2(H) 0.0 - 0.1 K/cumm [facility] Lymphocyte abs 0.7(L) 0.8 - 3.3 K/cumm [facility] Monocyte abs 0.4 0.2 - 0.8 K/cumm [facility] Eosinophil abs 0.2 0.0 - 0.5 K/cumm [facility] Basophil abs 0.1 0.0 - 0.1 K/cumm [facility] Neutrophil pct 83.5 % CHIDI Comment: Interpretive Data Percent cell count reference ranges are not reported, since discordance with absolute values may lead to misinterpretation of CBC data. Current Interpretive Data was last revised on 2017. Imm gran pct 2.2 % CHIDI Comment: Interpretive Data Percent cell count reference ranges are not reported, since discordance with absolute values may lead to misinterpretation of CBC data. Current Interpretive Data was last revised on 2017. Lymphocyte pct 6.8 % [facility] Comment: Interpretive Data Percent cell count reference ranges are not reported, since discordance with absolute values may lead to misinterpretation of CBC data. Current Interpretive Data was last revised on 2017. Monocyte pct 4.5 % [facility] Comment: Interpretive Data Percent cell count reference ranges are not reported, since discordance with absolute values may lead to misinterpretation of CBC data. Current Interpretive Data was last revised on 2017. Eosinophil pct 2.4 % [facility] Comment: Interpretive Data Percent cell count reference ranges are not reported, since discordance with absolute values may lead to misinterpretation of CBC data. Current Interpretive Data was last revised on 2017. Basophil pct 0.6 % CHIDI Comment: Interpretive Data Percent cell count reference ranges are not reported, since discordance with absolute values may lead to misinterpretation of CBC data. Current Interpretive Data was last revised on 2017. Blood 03/15/2024 12:0 7 PM CDT 03/15/2024 12:13 PM CDT Slick BRUCE LAB BLOOD ORDERABLES Final Result [facility] [id number] [facility] [place] [address] * (ABNORMAL) Pro B-type natriuretic peptide (03/15/2024 12:07 PM CDT) NT-proBNP 5,198(H) <=450 pg/mL Comment: Interpretive Comments: A. Dyspnea [...] as advanced age. - References: 1. Lizeth JL et.al. Eur Heart J. 2006:27:330-337. 2. Hayden RW, Iman ETIENNE. J. AM Sahra Cardiol: Cardiovasc Imag. 2009;2: 216- 225. Interpretive Data Last Revised Date: 2018. Blood 03/15/2024 12:0 7 PM CDT 03/15/2024 12:13 PM CDT us Slick BRUCE LAB BLOOD ORDERABLES Final Result [facility] [id number] Department [place] [address] * (ABNORMAL) CBC with auto differential (03/15/2024 12:07 PM CDT) WBC 9.6 3.8 - 9.9 K/cumm Hgb 11.8(L) 11.9 - 15.5 g/dL [facility] Hct 40.2 35.6 - 45.5 % [facility] Plt 370 150 - 400 K/cumm [facility] MPV 8.6(L) 9.1 - 12.3 fL [facility] RBC 4.41 3.90 - 5.20 M/cumm [facility] MCV 91.2 81.3 - 96.4 fL [facility] MCH 26.8(L) 27.1 - 33.3 pg [facility] CH MCHC 29.4(L) 32.3 - 35.7 g/dL [facility] CH RDW CV 16.5(H) 11.1 - 14.9 % CERNER CH RDW SD 55.4(H) 35.7 - 48.1 fL [facility] NRBC abs 0.00 0.00 - 0.01 K/cumm [facility] Blood 03/15/2024 12:0 7 PM CDT 03/15/2024 12:13 PM CDT Slick BRUCE LAB BLOOD ORDERABLES Final Result [facility] [id number] Department of Laboratories [place] [id number] * (ABNORMAL) Comprehensive metabolic panel (03/15/2024 12:07 PM CDT) Sodium 132(L) 135 - 145 mmol/L Potassium, pl 6.5(C) 3.3 - 4.9 mmol/L [facility] Comment:Critical Result call ed to and read back by Kristin Solomon, DATE: 2024-03-15 12:47:49 BY: Silvio Roper Chloride 104 97 - 110 mmol/L [facility] CO2 22 22 - 32 mmol/L [facility] Anion gap 6 2 - 15 mmol/L CERNER BUN 22 6 - 25 mg/dL [facility] Creatinine 1.09 0.60 - 1.10 mg/dL [facility] Glucose 97 70 - 199 mg/dL [facility] Comment: Interpretive Data Fasting glucose >/= 126 [...] interpretive data was last revised 2022. Calcium 9.3 8.5 - 10.3 mg/dL [facility] Bilirubin, total 0.3 0.1 - 1.2 mg/dL [facility] Protein, pl 6.7 6.5 - 8.5 g/dL [facility] Albumin 3.5 3.5 - 5.0 g/dL [facility] Alk phos 112 40 - 130 Units/L [facility] ALT 25 7 - 45 Units/L [facility] AST 25 10 - 45 Units/L [facility] Blood 03/15/2024 12:0 7 PM CDT 03/15/2024 12:13 PM CDT Slick BRUCE LAB BLOOD ORDERABLES Final Result [facility] [address] [place] [address] * (ABNORMAL) Troponin T high-sensitivity series (baseline, 2hr, 4hr, 6hr) (03/15/2024 12:07 PM CDT) Trop T hs 27(H) <=14 ng/L Comment: Interpretive Data For further hscTnT resources including the diagnostic algorithm and an aid in interpretation, copy and paste this link: https://nrl.testcatalog.org/show/hsTrop Current Interpretive Data last revised 2020. Blood 03/15/2024 12:0 7 PM CDT 03/15/2024 12:13 PM CDT Slick BRUCE LAB BLOOD ORDERABLES Edited Result - Final [facility] [address] [place] [address] * XR Chest 1 View (03/15/2024 12:03 PM CDT) Anatomical Region Laterality Modality Body, Chest N/A Computed Radiogr aphy 03/15/2024 12:0 5 PM CDT Impressions 03/15/2024 12:05 PM CDT FINDINGS/IMPRESSION: No pneumothorax or pleural effusion. ??Cardiomediastinal silhouette within normal limits. ??Mild pulmonary vascular congestion. ??No acute osseous abnormality. Electronically signed by: Jason Darling II, D.O. Narrative 03/15/2024 12:05 PM CDT EXAMINATION: XR CHEST 1 VIEW DATE: 03/15/2024 11:50 AM INDICATION: Pain. COMPARISON: 07/22/2023. Procedure Note Jason Darling II, DO - 03/15/2024 EXAMINATION: XR CHEST 1 VIEW DATE: 03/15/2024 11:50 AM INDICATION: Pain. COMPARISON: 07/22/2023. IMPRESSION: FINDINGS/IMPRESSION: No pneumothorax or pleural effusion. Cardiomediastinal silhouette within normal limits. Mild pulmonary vascular congestion. No acute osseous abnormality. Electronically signed by: Jason Darling II, D.O. us Slick BRUCE IMG XR PROCEDURES Fin al Result * ECG 12 lead (03/15/2024 10:58 AM CDT) 03/15/2024 10:5 8 AM CDT Narrative [facility] - 03/15/2024 2:31 PM CDT Vent Rate: 75 bpm RR Interval: 795 msec MS Interval: 0 msec QRS Duration: 70 msec QT Interval: 357 msec QTC Interval: 386 msec P-R-T [place]: 0 - 67 - 35 degrees IMPRESSION: ATRIAL FIBRILLATION LOW QRS VOLTAGE IN PRECORDIAL LEADS Electronically Signed By: Collin Rich MD, [facility] us Kim Willams MD ECG ORDERABLES Final Result [facility] documented in this encounter Visit Diagnoses Diagnosis Acute on chronic diastolic CHF (congestive heart failure) ([facility]) ([facility])- Primary Acute on chronic diastolic CHF (congestive heart failure) ([facility]) ([facility]) Hyperkalemia Hyperpotassemia documented in this encounter Admitting Diagnoses Diagnosis Acute on chronic diastolic CHF (congestive heart failure) ([facility]) ([facility]) documented in this encounter Administered Medications Inactive Administered Medications - up to 3 most recent administrations Medication Order MAR Action Action Date Dose Rate Site acetaminophen (TYLENOL) tablet 650 mg 650 mg, oral, Every 6 hours PRN, headaches, fever, Starting on Mon03/15/24 at 1932 Given 03/16/2024 12:36 PM CDT 650 mg Given 03/15/2024 9:09 PM CDT 650 mg albuterol 2.5 mg/0.5 mL nebulizer solution 10 mg 10 mg, nebulization, Once (corporate responsibility officer), On Mon03/15/24 at 1420, For 1 dose, Indications: hyperkalemiaIndications:hyperkalemia Given 03/15/2024 2:31 PM CDT 10 mg allopurinoL (ZYLOPRIM) tablet 200 mg 200 mg, oral, Daily, First dose on Mon03/15/24 at 1931 Given 03/16/2024 9:49 AM CDT 200 mg Given 03/15/2024 9:07 PM CDT 200 mg apixaban (ELIQUIS) tablet 2.5 mg 2.5 mg, oral, 2 times daily, First dose on Mon03/15/24 at 2100, Nurse to discontinue heparin infusion order and associated bolus at first administration of apixaban using ? order condition met? order source, Indications: Venous ThrombosisIndications:Venous Thrombosis Given 03/16/2024 9:47 AM CDT 2.5 mg Given 03/15/2024 9:07 PM CDT 2.5 mg ascorbic acid (VITAMIN C) tablet/chewable tablet 250 mg 250 mg, oral, 3 times weekly (Once per day on Monday), First dose on Mon03/15/24 at 1931 Given 03/15/2024 9:08 PM CDT 250 mg cetirizine (ZyrTEC) tablet 5 mg 5 mg, oral, Nightly, First dose on Mon03/15/24 at 2100 Given 03/15/2024 9:07 PM CDT 5 mg cholecalciferol (VITAMIN D-3) tablet 2,000 Units 2,000 Units, oral, Daily, First dose on Mon03/15/24 at 1931, Each tablet contains 1,000 units (25 mcg) of cholecalciferol. Given 03/16/2024 9:47 AM CDT 2,000 Units Given 03/15/2024 9:08 PM CDT 2,000 Units dextrose (D10W) 10% bolus 500 mL 500 mL, intravenous, at 250 mL/hr, Administer over 2 Hours, Once, On Mon03/15/24 at 1420, For 1 dose, If blood glucose greater than 250 mg/dL, hold dextrose and contact provider. Initiate PRIOR to insulin. , Indications: Prevent HypoglycemiaIndications:Prevent Hypoglycemia New Bag 03/15/2024 3:00 PM CDT 500 mL 250 mL/hr empagliflozin (JARDIANCE) tablet 10 mg 10 mg, oral, Daily, First dose on Mon03/15/24 at 1931, I /authorizing provider attest that the patient meets the approved [facility] Use Criteria: No, Approving Provider: ANKUR Banks, Indications: Heart FailureIndications:Heart Failure Given 03/16/2024 9:47 AM CDT 10 mg Given 03/15/2024 9:07 PM CDT 10 mg ferrous sulfate delayed release tablet 65 mg of elemental iron 65 mg of elemental iron, oral, Daily with breakfast, First dose on Mon03/16/24 at 0800, 325 MG OF FERROUS SULFATE = 65 MG OF ELEMENTAL IRON, Indications: Iron Deficiency AnemiaIndications:Iron Deficiency Anemia Given 03/16/2024 9:47 AM CDT 65 mg of elemental iron fluticasone furoate-vilanteroL (BREO ELLIPTA) 100-25 mcg/dose inhaler 1 puff 1 puff, inhalation, Daily (corporate responsibility officer), First dose on Mon03/15/24 at 193 Given 03/16/2024 8:19 AM CDT 1 puff furosemide (LASIX) 10 mg/mL injection 40 mg 40 mg, intravenous, Once, On Mon03/15/24 at 1420, For 1 dose, For IV push: administer doses < 160 mg at a rate of 20 -40 mg/min. Doses >/= 160 mg should be administered no faster than 4 mg/min. Room temperature only, Indications: hyperkalemiaIndications:hy perkalemia Given 03/15/2024 3:01 PM CDT 40 mg furosemide (LASIX) 10 mg/mL injection 40 mg 40 mg, intravenous, 2 times daily (for diuretics), First dose on Mon03/16/24 at 0900, Room temperature only Given 03/16/2024 9:49 AM CDT 40 mg insulin regular (HumuLIN R, NovoLIN R) 100 unit/mL injection 8 Units 8 Units (rounded from 8.21 Units = 0.1 Units/kg ? 82.1 kg), intravenous, Once, On Mon03/15/24 at 1420, For 1 dose, Administer AFTER dextrose infusion started. Dose = 0.1 units/kg; Maximum 10 units/dose., Indications: hyperkalemiaIndications:hy perkalemia Given 03/15/2024 4:37 PM CDT 8 Units ioversoL (OPTIRAY 350) syringe 75 mL 75 mL, intravenous, Once in imaging, contrast, Starting on Mon03/15/24 at 1732, For 1 dose Contrast Given 03/15/2024 5:39 PM CDT 69 mL ondansetron (ZOFRAN) injection 4 mg 4 mg, intravenous, Administer over 2 Minutes, Every 6 hours PRN, nausea, vomiting, Starting on Mon03/15/[address] (PROTONIX) extended release tablet 40 mg 40 mg, oral, Daily, First dose on Mon03/15/24 at 1931, Do not crush, chew, cut, dissolve, open or otherwise manipulate tablet/capsule., Indications: Treatment of Non-Bleeding Gastric DisorderIndications:Treatm ent of Non-Bleeding Gastric Disorder Given 03/16/2024 9:46 AM CDT 40 mg Given 03/15/2024 9:08 PM CDT 40 mg pramipexole (MIRAPEX) tablet 0.75 mg 0.75 mg, oral, Once, On Mon03/15/24 at 1637, For 1 dose Given 03/15/2024 6:34 PM CDT 0.75 mg pramipexole (MIRAPEX) tablet 0.75 mg 0.75 mg, oral, 2 times daily, First dose on Mon03/15/24 at 2100 Given 03/16/2024 9:48 AM CDT 0.75 mg propranoloL (INDERAL) tablet 20 mg 20 mg, oral, 2 times daily with meals (bkfst, lunch), First dose on Mon03/16/24 at 0800, Indications: Essential TremorIndications:Essential Tremor Given 03/16/2024 12:36 PM CDT 20 mg Given 03/16/2024 9:47 AM CDT 20 mg sodium bicarbonate 8.4 % (1 mEq/mL) injection 50 mEq 50 mEq, intravenous, Administer over 5 Minutes, Once, On Mon03/15/24 at 1420, For 1 dose, Indications: hyperkalemiaIndications:hyperkalemia Given 03/15/2024 2:57 PM CDT 50 mEq sodium zirconium cyclosilicate (LOKELMA) packet 10 g 10 g, oral, Once, On Mon03/15/24 at 1420, For 1 dose, Adjust medication timing to ensure other oral medications are administered at least 2 hours before or 2 hours after sodium zirconium cyclosilicate. Empty packet(s) into a glass with 3 tablespoons (45 mL) of water. Stir and administer immediately. Repeat until no powder remains in glass., Indications: hyperkalemiaIndications:hyperkalemia Given 03/15/2024 6:31 PM CDT 10 g documented in this encounter Discontinued Medications Medication Sig Discontinue Reason Start Date End Da te metOLazone (ZAROXOLYN) 5 mg tabletIndications:Per ipheral Edema due to Chronic Heart Failure Take 1 tablet (5 mg total) by mouth daily 10/30/2023 03/15/2024 fluticasone propion-salmeteroL (ADVAIR DISKUS) 100-50 mcg/dose diskus inhaler Inhale 1 puff daily Rinse mouth with water after use. Do not swallow. 11/27/2023 03/15/2024 furosemide (LASIX) 80 mg tablet Take 1 tablet (80 mg total) by mouth daily Patient to take an additional 80mg every day if weight increase. 01/10/2024 03/15/2024 furosemide (LASIX) 80 mg tablet Take 120mg every monring and 80mg every afternoon. 03/05/2024 03/15/2024 propranoloL (INDERAL) 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:Her editary essential tremor Take 1 tablet (20 mg total) by mouth 2 (two) times a day as needed (Tremor) 07/13/2023 03/15/2024 potassium chloride ER 20 mEq CR tablet Take 2 tablets (40 mEq total) by mouth 2 (two) times a day Stop Taking at Discharge 07/19/2023 03/16/2024 documented as of this encounter Historical Medications * This list may reflect changes made after this encounter. propranoloL (INDERAL) 20 mg tabletIndication s:Essential Tremor Take 1 tablet (20 mg total) by mouth 2 (two) times a day with breakfast and lunch furosemide (LASIX) 80 mg tablet Take 1 tablet (80 mg total) by mouth 2 (two) times a day fluticasone propion-salmeter oL (ADVAIR DISKUS) 100-50 mcg/dose diskus inhaler Inhale 1 puff 2 (two) times a day Rinse mouth with water after use. Do not swallow. acetaminophen (TYLENOL) 500 mg tablet Take 2 tablets (1,000 mg total) by mouth 2 (two) times a day as needed for pain polyethylene glycol (MIRALAX) 17 gram packetIndication s:constipation Take 1 packet (17 g total) by mouth daily as needed for constipation added in this encounter Active and Recently Administered Medications Times are shown in CDT. Scheduled Medication Order 03/14/2024 03/15/2024 03/16/2024 albuterol 2.5 mg/0.5 mL nebulizer solution 10 mg (COMPLETED) 10 mg, nebulization, Once (corporate responsibility officer), On Mon03/15/24 at 1420, For 1 dose, Indications: hyperkalemia 1431 (Given - Provider: Yenifer Lei, WAREHOUSE SORTER) allopurinoL (ZYLOPRIM) tablet 200 mg 200 mg, oral, Daily, First dose on Mon03/15/24 at 1931 2107 (Given - Provider: Jessy Delacruz, RN) 0949 (Given - Provider: Aryan Fernandez) apixaban (ELIQUIS) tablet 2.5 mg 2.5 mg, oral, 2 times daily, First dose on Mon03/15/24 at 2100, Nurse to discontinue heparin infusion order and associated bolus at first administration of apixaban using ? order condition met? order source, Indications: Venous Thrombosis 2106 (Given - Provider: Jessy Delacruz RN) 946 (Given - Provider: Aryan Fernandez) ascorbic acid (VITAMIN C) tablet/chewable tablet 250 mg 250 mg, oral, 3 times weekly (Once per day on Monday), First dose on Mon03/15/24 at 1931 210 (Given - Provider: Jessy Delacruz RN) cetirizine (ZyrTEC) tablet 5 mg 5 mg, oral, Nightly, First dose on Mon03/15/24 at 2100 2106 (Given - Provider: Jessy Delacruz RN) cholecalciferol (VITAMIN D-3) tablet 2,000 Units 2,000 Units, oral, Daily, First dose on Mon03/15/24 at 193, Each tablet contains 1,000 units (25 mcg) of cholecalciferol. 2107 (Given - Provider: Jessy Delacruz RN) 946 (Given - Provider: Aryan Fernandez) dextrose (D10W) 10% bolus 500 mL (COMPLETED)(Linked Group 1) 500 mL, intravenous, at 250 mL/hr, Administer over 2 Hours, Once, On Mon03/15/24 at 1420, For 1 dose, If blood glucose greater than 250 mg/dL, hold dextrose and contact provider. Initiate PRIOR to insulin. , Indications: Prevent Hypoglycemia 1500 (New Bag - Provider: Camille Pearson RN) 0404 (Stopped - Provider: Jessy Delacruz RN) empagliflozin (JARDIANCE) tablet 10 mg 10 mg, oral, Daily, First dose on Mon03/15/24 at 1931, I /authorizing provider attest that the patient meets the approved [facility] Use Criteria: No, Approving Provider: ESDRAS Banks, Indications: Heart Failure 2106 (Given - Provider: Jessy Delacruz RN) 946 (Given - Provider: Aryan Fernandez) ferrous sulfate delayed release tablet 65 mg of elemental iron 65 mg of elemental iron, oral, Daily with breakfast, First dose on Mon03/16/24 at 0800, 325 MG OF FERROUS SULFATE = 65 MG OF ELEMENTAL IRON, Indications: Iron Deficiency Anemia 946 (Given - Provid er: Aryan Fernandez) fluticasone furoate-vilanteroL (BREO ELLIPTA) 100-25 mcg/dose inhaler 1 puff 1 puff, inhalation, Daily (corporate responsibility officer), First dose on Mon03/15/24 at 1931 0405 (Not Given - Provider: Jessy Delacruz, RN - Reason: Medication not available)0819 (Given - Provider: Deanne Santana, WAREHOUSE SORTER) furosemide (LASIX) 10 mg/mL injection 40 mg (COMPLETED) 40 mg, intravenous, Once, On Mon03/15/24 at 1420, For 1 dose, For IV push: administer doses < 160 mg at a rate of 20 -40 mg/min. Doses >/= 160 mg should be administered no faster than 4 mg/min. Room temperature only, Indications: hyperkalemia 1501 (Given - Provider: Camille Pearson, XU) furosemide (LASIX) 10 mg/mL injection 40 mg 40 mg, intravenous, 2 times daily (for diuretics), First dose on Mon03/16/24 at 0900, Room temperature only 0949 (Given - Provid er: Aryan Fernandez)1600 (Due) insulin regular (HumuLIN R, NovoLIN R) 100 unit/mL injection 8 Units (COMPLETED)(Linked Group 1) 8 Units (rounded from 8.21 Units = 0.1 Units/kg ? 82.1 kg), intravenous, Once, On Mon03/15/24 at 1420, For 1 dose, Administer AFTER dextrose infusion started. Dose = 0.1 units/kg; Maximum 10 units/dose., Indications: hyperkalemia 1637 (Given - Provider: Camille Pearson, XU) pantoprazole DR (PROTONIX) extended release tablet 40 mg 40 mg, oral, Daily, First dose on Mon03/15/24 at 1931, Do not crush, chew, cut, dissolve, open or otherwise manipulate tablet/capsule., Indications: Treatment of Non-Bleeding Gastric Disorder 210 (Given - Provider: Jessy Delacruz, XU) 0946 (Given - Provider: Aryan Fernandez) pramipexole (MIRAPEX) tablet 0.75 mg (COMPLETED) 0.75 mg, oral, Once, On Mon03/15/24 at 1637, For 1 dose 183 (Given - Provider: Camille Pearson RN) pramipexole (MIRAPEX) tablet 0.75 mg 0.75 mg, oral, 2 times daily, First dose on Mon03/15/24 at 2100 2137 (Not Given - Provider: Jessy Delacruz RN - Reason: Patient/family refused - Comment: states she already took) 0948 (Given - Provider: Aryan Fernandez) propranoloL (INDERAL) tablet 20 mg 20 mg, oral, 2 times daily with meals (bkfst, lunch), First dose on Mon03/16/24 at 0800, Indications: Essential Tremor 0947 (Given - Provid er: Aryan Fernandez)1236 (Given - Provider: Aryan Fernandez) sodium bicarbonate 8.4 % (1 mEq/mL) injection 50 mEq (COMPLETED) 50 mEq, intravenous, Administer over 5 Minutes, Once, On Mon03/15/24 at 1420, For 1 dose, Indications: hyperkalemia 1457 (Given - Provider: Camille Pearson RN) sodium zirconium cyclosilicate (LOKELMA) packet 10 g (COMPLETED) 10 g, oral, Once, On Mon03/15/24 at 1420, For 1 dose, Adjust medication timing to ensure other oral medications are administered at least 2 hours before or 2 hours after sodium zirconium cyclosilicate. Empty packet(s) into a glass with 3 tablespoons (45 mL) of water. Stir and administer immediately. Repeat until no powder remains in glass., Indications: hyperkalemia 1830 (Given - Provider: Camille Pearson RN) spironolactone (ALDACTONE) tablet 25 mg 25 mg, oral, Daily, First dose on Mon03/15/24 at 1931, On hold since Mon03/15/2024 at 1931 until manually unheld 1930 (Held by Provider - Provider: Florinda Haile NP - Reason: Other)1931 (Dose Auto Held) 899 (Dose Auto Held)2135 (Unheld by Provider - Provider: Automatic Discharge Provider) PRN Medication Order 03/14/2024 03/15/2024 03/16/2024 acetaminophen (TYLENOL) tablet 650 mg 650 mg, oral, Every 6 hours PRN, headaches, fever, Starting on Mon03/15/24 at 1932 2109 (Given - Provider: Jessy Delacruz, XU) 1236 (Given - Provider: Aryan Fernandez) albuterol HFA (PROVENTIL HFA,VENTOLIN HFA,PROAIR HFA) 90 mcg/actuation inhaler 2 puff 2 puff, inhalation, Every 6 hours PRN (corporate responsibility officer), wheezing, shortness of breath, Starting on Mon03/15/24 at 1933 ioversoL (OPTIRAY 350) syringe 75 mL (COMPLETED) 75 mL, intravenous, Once in imaging, contrast, Starting on Mon03/15/24 at 1732, For 1 dose 1739 (Contrast Given - Provider: Jeanna Feng, RT) ondansetron (ZOFRAN) injection 4 mg 4 mg, intravenous, Administer over 2 Minutes, Every 6 hours PRN, nausea, vomiting, Starting on Mon03/15/24 at 1932 polyethylene glycol (MIRALAX) packet 17 g 17 g, oral, Daily PRN, constipation, Starting on Mon03/15/24 at 1930, Indications: constipation Linked Groups Order Group 1: POCT glucose (CANCELED) Once (Routine), On Mon03/15/24 at 1419, For 1 occurrence And dextrose (D10W) 10% bolus 500 mL (COMPLETED)Jump to med 500 mL, intravenous, at 250 mL/hr, Administer over 2 Hours, Once, On Mon03/15/24 at 1420, For 1 dose, If blood glucose greater than 250 mg/dL, hold dextrose and contact provider. Initiate PRIOR to insulin. , Indications: Prevent Hypoglycemia And insulin regular (HumuLIN R, NovoLIN R) 100 unit/mL injection 8 Units (COMPLETED)Jump to med 8 Units (rounded from 8.21 Units = 0.1 Units/kg ? 82.1 kg), intravenous, Once, On Mon03/15/24 at 1420, For 1 dose, Administer AFTER dextrose infusion started. Dose = 0.1 units/kg; Maximum 10 units/dose., Indications: hyperkalemia And POCT glucose (CANCELED) Every 1 hour, First occurrence on Mon03/15/24 at 1500, Last occurrence on Mon03/15/24 at 1700, For 3 occurrences, Start 1 hour after initial Glucose POCT. And POCT glucose (CANCELED) Every 3 hours, First occurrence on Mon03/15/24 at 1500, Last occurrence on Mon03/15/24 at 2100, For 3 occurrences, Start 6 hours after initial Glucose POCT. And Notify Provider (CANCELED) Routine, Continuous, Starting on Mon03/15/24 at 1419, Until Specified, Blood Glucose less than 70mg/dL: Yes documented in this encounter Orders Medications Ordered That Alhaji ht Not Have Been Administered Count Last Ordered Date First Ordered Date albuterol HFA (PROVENTIL HFA ,VENTOLIN HFA,PROAIR HFA) 90 mcg/actuation inhaler 2 puff 1 03/15/2024 ferrous fumarate tablet tablet 325 mg 1 ondansetron (ZOFRAN) injection 4 mg 1 03/15 polyethylene glycol (MIRALAX) packet 17 g 1 03/15/2024 spironolactone (ALDACTONE) tablet 25 mg 1 0 03/15/2024 Lab Orders Without Results Count Last Ordered D ate First Ordered Date POCT GLUCOSE DEVICE 1 03/15/2024 Diet Count Last Ordered Date First Orde red Date ADULT DISCHARGE DIET 1 03/16/2024 Nursing Count Last Ordered Date First Orde red Date DISCHARGE ACTIVITY 1 03/16/2024 DISCHARGE CALL PROVIDER 4 03/16/2024 DISCHARGE INSTRUCTIONS 1 03/16/2024 FOLLOW UP WITH ESTABLISHED PROVIDER 1 03/16 TELEMETRY MONITORING 1 03/15/2024 Consult Count Last Ordered Date First Orde red Date IP CONSULT TO CARDIOLOGY 1 03/15/2024 Admission Count Last Ordered Date First Orde red Date ADMIT TO INPATIENT 1 03/15/2024 Discharge Count Last Ordered Date First Orde red Date DISCHARGE PATIENT 1 03/16/2024 CORE MEASURES Count Last Ordered Date First Ord ered Date REASON FOR NO VTE PROPHYLAXIS AT ADMISSION 1 03/15/2024 documented in this encounter Care Teams Senior Mechanical Designer Relationship Specialty Start Date End Date Pepper Morgan MD PCP - General 09/16/16 Hank Garibay MD [address] [place] [address] [place] [address] Surgeon Orthopedic Surgery 03/27/17 Jacky Murry MD [address] [facility] [address] [place] [address] Ophthalmology 03/27/17 Puma Mckenzie MD [address] [facility] [address] [place] [address] Surgeon Orthopedic Surgery 07/11/19 Neha Jackson, PT Physical Therapist Physical Therapy 12/01/21 Stalin Arauz MD [address] [facility] [address] [place] [address] Consulting Physician Cardiology 12/08/22 Tiffany Rojas PA [address] [facility] [address] [place] [address] Gastroenterology 12/30/22 Klaus Deshpande MD [address] [facility] [address] [place] [address] Consulting Physician Neurology 06/13/23 documented as of this encounter
--- OUTSIDE RECORDS SUMMARY | 2024-06-18 18:48 | XMS_ITS | Encounter Summary ---
Author Organization [facility] Address [address] [place] [address] Care Team Providers Care Meat Products Demonstrator Name Role Phone Pepper Morgan MD Primary Care Provider + [phone] Hank Garibay MD Unavailable [phone] Jacky Murry MD Unavailable [phone] Puma Mckenzie MD Unavailable [phone] Neha Jackson PT Unavailable Unavailable Stalin Arauz MD Unavailable [phone] Tiffany Rojas Unavailable [phone] Klaus Deshpande MD Unavailable [phone] Encounter Details Date Type Department Care Team (Late st Contact Info) Description 03/15/2024 Telephone [place] Junk Dealer at [address] [place] [id number] Hai Dalton MA Social History Tobacco Use Types Packs/Day Years Used Date Smoking Tobacco: Former Cigarettes 2 30 1 952 - 1982 Smokeless Tobacco: Never Alcohol Use Standard Drinks/Week Comments Not Currently 0 (1 standard drink = 0.6 oz pur e alcohol) [facility] Utilities Answer Date Recorded In the past 12 months has [employer], gas, oil, or water company threatened to [...] often do you attend chur ch or mandaeism services? Never 07/24/2023 Do you belong to [...] in a usp (including now)? No 07/24/2023 Personal Safety Answer Date Recorded Have you ever been in or are you currently in a harmful physical or emotional relationship or is someone making you feel afraid or unsafe? 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. Recent covid dx: along with fluid retention. Patient seemed to have a lot of wheezing on the phone. documented in this encounter Plan of Treatment [...] on filedocumented in this encounter Care Teams Meat Products Demonstrator Relationship Specialty Start Date End Date Pepper Morgan MD PCP - General 09/16/16 Hank Garibay MD 4 [facility] [address] [place] [address] Surgeon Orthopedic Surgery 03/27/17 Jacky Murry MD 4 [facility] [address] [facility] [address] [place] [address] Ophthalmology 03/27/17 Puma Mckenzie MD [address] [facility] [address] [facility] [address] [place] [address] Surgeon Orthopedic Surgery 07/11/19 Neha Jackson, PT Physical Therapist Physical Therapy 12/01/21 Stalin Arauz MD 2 [facility] [address] [place] [address] Consulting Physician Cardiology 12/08/22 Tiffany Rojas PA [address] [facility] [address] [place] [address] Gastroenterology 12/30/22 Klaus Deshpande MD 4 [facility] [address] [place] [address] Consulting Physician Neurology 06/13/23 documented as of this encounter
--- OUTSIDE RECORDS SUMMARY | 2024-06-18 18:48 | XMS_ITS | Encounter Summary ---
Author Organization [facility] Address [address] [place] [address] Care Team Providers Care Supervisor Insecticide Name Role Phone Pepper Morgan MD Primary Care Provider + [phone] Hank Garibay MD Unavailable [phone] Jacky Murry MD Unavailable [phone] Puma Mckenzie MD Unavailable [phone] Neha Jackson PT Unavailable Unavailable Stalin Arauz MD Unavailable [phone] Tiffany Rojas Unavailable [phone] Klaus Deshpande MD Unavailable [phone] Encounter Details Date Type Department Care Team (Late st Contact Info) Description 03/05/2024 Orders Only [place] Photographer Aerial at [address] [place] [address] Stalin Arauz MD [address] [place] [address] [address] [place] [address] Acute on chronic heart failure with preserved ejection fraction (CMS/HCC) (HCC) (Primary Dx) Social History Tobacco Use Types Packs/Day Years Used Date Smoking Tobacco: Former Cigarettes 2 30 1 952 - 1981 Smokeless Tobacco: Never Alcohol Use Standard Drinks/Week Comments Not Currently 0 (1 standard drink = 0.6 oz pur e alcohol) [facility] Utilities Answer Date Recorded In the [...] often do you attend chur ch or jainism services? Never 07/24/2023 Do you belong to any clubs o r organizations such as catholic groups, unions, fraternal or athletic groups, or [...] making you feel afraid or unsafe? 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 Gender Identity Not on file Sexual Orientation Not on file Occupation Industry Job Start Date Job End Date retired Not on file Not on file Not on file documented as of this encounter Plan of Treatment Scheduled Orders Name Type Priority Associated Diagnoses Orde r Schedule Basic metabolic panel Lab Routine Acute on chronic heart failure with preserved ejection fraction (CMS/HCC) ([facility]) Expected: 03/08/2024, Expires: 03/05/2025 Pro B-type natriuretic peptide Lab Routine Acute on chronic heart failure with preserved ejection fraction (CMS/HCC) ([facility]) Expected: 03/08/2024, Expires: 03/05/2025 documented as of this encounter Goals Goal Patient Goal Type Associated Problems Recent Progress Patient-Stated? Author BH-Pain Behavioral Health Improving( 3:34 PM CDT) No Domitila Garay, RN Note: Patient will establish a comfort-function goal and identify the pain level that will allow the patient to perform desired activities and achieve an acceptable quality of life. documented as of this encounter Visit Diagnoses Diagnosis Acute on chronic heart failure with preserved ejection fraction (CMS/HCC) ([facility])- Primary documented in this encounter Care Teams Supervisor Insecticide Relationship Specialty Start Date End Date Pepper Morgan MD PCP - General 09/16/16 Hank Garibay MD [address] [facility] [address] [place] [address] Surgeon Orthopedic Surgery 03/27/17 Jacky Murry MD [address] [facility] [address] [facility] [address] [place] [address] Ophthalmology 03/27/17 Puma Mckenzie MD [address] [facility] [address] [facility] [address] [place] [address] Surgeon Orthopedic Surgery 07/11/19 Neha Jackson, PT Physical Therapist Physical Therapy 12/01/21 Stalin Arauz MD [address] [facility] [address] [place] [address] Consulting Physician Cardiology 12/08/22 Tiffany Rojas PA [address] [place] [address] [address] [place] [address] Gastroenterology 12/30/22 Klaus Deshpande MD [address] [facility] [address] [place] [address] Consulting Physician Neurology 06/13/23 documented as of this encounter
--- OUTSIDE RECORDS SUMMARY | 2024-06-18 18:48 | XMS_ITS | Encounter Summary ---
Author Organization [facility] Address [address] [place] [address] Care Team Providers Care Neonatal Nurse Practitioner Name Role Phone Pepper Morgan MD Primary Care Provider + [phone] Hank Garibay MD Unavailable [phone] Jacky Murry MD Unavailable [phone] Puma Mckenzie MD Unavailable [phone] Neha Jackson PT Unavailable Unavailable Stalin Arauz MD Unavailable [phone] Tiffany Rojas Unavailable [phone] Klaus Deshpande MD Unavailable [phone] Encounter Details Date Type Department Care Team (Late st Contact Info) Description 12/26/2023 Orders Only [place] [employer] Equipment Operator at [address] [place] [address] Stalin Arauz MD [address] [place] [address] [address] [place] [address] Acute on chronic heart failure with preserved ejection fraction (CMS/HCC) (HCC) (Primary Dx) Social History Tobacco Use Types Packs/Day Years Used Date Smoking Tobacco: Former Cigarettes 2 30 1 952 - 1981 Smokeless Tobacco: Never Alcohol Use Standard Drinks/Week Comments Not Currently 0 (1 standard drink = 0.6 oz pur e alcohol) [facility] Utilities Answer Date Recorded In the [...] place to sleep or slept in a mcc (including now)? No 07/24/2023 Personal Safety Answer Date Recorded Have you ever been in or are you currently in a harmful physical or emotional relationship or is someone making you feel afraid or unsafe? 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 Dyspnea [...] Interpretive Data Last Revised Date: 2018. Blood 12/29/2023 8:25 AM CDT 12/29/2023 8:43 AM CDT us Stalin Arauz MD LAB BLOOD ORDERABLES Final Resu lt [facility] ([place] Department [place] [address] * (ABNORMAL) Basic metabolic panel (12/29/2023 8:25 AM CDT) Sodium 132(L) 135 - 145 mmol/L Potassium, pl 3.4 3.3 - 4.9 mmol/L [facility] ([place] Chloride 88(L) 97 - 110 mmol/L [facility] ([place]) CO2 32 22 - 32 mmol/L [facility] ([place]) Anion gap 12 2 - 15 mmol/L [facility] ([place]) BUN 60(H) 6 - 25 mg/dL [facility] ([place]) Creatinine 1.60(H) 0.60 - 1.10 mg/dL [facility] ([place]) Glucose 101 70 - 199 mg/dL [facility] ([place]) [...] interpretive data was last revised 2022. Calcium 9.7 8.5 - 10.3 mg/dL [facility] ([place]) Blood 12/29/2023 8:25 AM CDT 12/29/2023 8:43 AM CDT us Stalin Arauz MD LAB BLOOD ORDERABLES Final Resu lt [facility] ([place]) [facility] Department [place] [address] documented in this encounter Visit Diagnoses Diagnosis Acute on chronic heart failure with preserved ejection fraction (CMS/HCC) (HCC)- Primary documented in this encounter Care Teams Neonatal Nurse Practitioner Relationship Specialty Start Date End Date Pepper Morgan MD PCP - General 09/16/16 Hank Garibay MD [address] [facility] [address] [facility] [address] [place] [address] Surgeon Orthopedic Surgery 03/27/17 Jacky Murry MD [address] [facility] [address] [facility] [address] [place] [address] Ophthalmology 03/27/17 Puma Mckenzie MD [address] [facility] [address] [facility] [address] [place] [address] Surgeon Orthopedic Surgery 07/11/19 Neha Jackson, PT Physical Therapist Physical Therapy 12/01/21 Stalin Arauz MD [address] [facility] [address] [place] [address] Consulting Physician Cardiology 12/08/22 Tiffany Rojas PA [address] [facility] [address] [place] [address] Gastroenterology 12/30/22 Klaus Deshpande MD [address] [facility] [address] [place] [address] Consulting Physician Neurology 06/13/23 documented as of this encounter
--- OUTSIDE RECORDS SUMMARY | 2024-06-18 18:48 | XMS_ITS | Encounter Summary ---
Author Organization [facility] Healthcare Address [address] [place] [address] Care Team Providers Care Manager Energy Name Role Phone Pepper Morgan MD Primary Care Provider + [phone] Hank Garibay MD Unavailable [phone] Jacky Murry MD Unavailable [phone] Puma Mckenzie MD Unavailable [phone] Neha Jackson PT Unavailable Unavailable Stalin Arauz MD Unavailable [phone] Tiffany Rojas Unavailable [phone] Klaus Deshpande MD Unavailable [phone] Encounter Details Date Type Department Care Team (Late st Contact Info) Description 12/29/2023 8:20 AM CDT Lab [address] [address] Gouty arthritis of foot; Encounter for medication monitoring; Iron deficiency anemia, unspecified iron deficiency anemia type Social History Tobacco Use Types Packs/Day Years Used Date Smoking Tobacco: Former Cigarettes 2 30 1 1981 Smokeless Tobacco: Never Alcohol Use Standard Drinks/Week Comments Not Currently 0 (1 standard drink = 0.6 oz pur e alcohol) [facility] Utilities Answer Date Recorded In the past 12 months has [employer], gas, oil, or water [employer] threatened to shut off services in your [...] often do you attend chur ch or baptism services? Never 07/24/2023 Do you belong to [...] in a custodial (including now)? No 07/24/2023 Personal Safety Answer Date Recorded Have you ever been in or are you currently in a harmful physical or emotional relationship or is someone making you feel afraid or unsafe? 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 Gender Identity Not on file Sexual Orientation [...] Priority Date/Time Associated Diagnosis Comments EGFR Routine 12/29/2023 8:25 AM CDT Gouty arthritis of foot Encounter for medication monitoring DIFFERENTIAL AUTO Routine 12/29/2023 8:2 5 AM CDT Iron deficiency anemia, unspecified iron deficiency anemia type IRON PROFILE W/ IBC Routine 12/29/2023 8 :25 AM CDT Iron deficiency anemia, unspecified iron deficiency anemia type CBC WITH AUTO DIFFERENTIAL Routine 12/29/2023 8:25 AM CDT Iron deficiency anemia, unspecified iron deficiency anemia type URIC ACID Routine 12/29/2023 8:25 AM CDT Gouty arthritis of foot Encounter for medication monitoring RENAL FUNCTION PANEL Routine 12/29/2023 8:25 AM CDT Gouty arthritis of foot Encounter for medication monitoring documented in this encounter Results * (ABNORMAL) eGFR (12/29/2023 8:25 AM CDT) eGFR 32(L) >=60 mL/min/1. 73 m2 Comment: Interpretive Data [...] interpretive data was last reviewed 2021. Blood 12/29/2023 8:25 AM CDT 12/29/2023 8:43 AM CDT us Pepper Morgan MD LAB BLOOD ORDERABLES Final Result [facility] [place]) 1 [facility] [place] [address] * (ABNORMAL) Differential, auto (12/29/2023 8:25 AM CDT) Neutrophil abs 8.6(H) 1.5 - 6.5 K/cumm Imm gran abs 0.1 0.0 - 0.1 K/cumm [facility] ([place]) Lymphocyte abs 0.9 0.8 - 3.3 K/cumm [facility] ([place]) Monocyte abs 0.8 0.2 - 0.8 K/cumm [facility] ([place]) Eosinophil abs 0.3 0.0 - 0.5 K/cumm [facility] ([place]) Basophil abs 0.1 0.0 - 0.1 K/cumm [facility] ([place]) Neutrophil pct 80.6 % [facility] ([place]) Comment: Interpretive Data Percent cell count reference ranges are not reported, since discordance with absolute values may lead to misinterpretation of CBC data. Current Interpretive Data was last revised on 2017. Imm gran pct 1.0 % [facility] ([place]) Comment: Interpretive Data Percent cell count reference ranges are not reported, since discordance with absolute values may lead to misinterpretation of CBC data. Current Interpretive Data was last revised on 2017. Lymphocyte pct 8.4 % [facility] ([place]) Comment: Interpretive Data Percent cell count reference ranges are not reported, since discordance with absolute values may lead to misinterpretation of CBC data. Current Interpretive Data was last revised on 2017. Monocyte pct 7.1 % [facility] ([place]) Comment: Interpretive Data Percent cell count reference ranges are not reported, since discordance with absolute values may lead to misinterpretation of CBC data. Current Interpretive Data was last revised on 2017. Eosinophil pct 2.3 % [facility] ([place]) Comment: Interpretive [...] Data was last revised on 2017. Blood 12/29/2023 8:25 AM CDT 12/29/2023 8:43 AM CDT us Pepper Morgan MD LAB BLOOD ORDERABLES Final Result [facility] ([place]) 1 [facility] [address] [place] [address] * (ABNORMAL) CBC with auto differential (12/29/2023 8:25 AM CDT) WBC 10.7(H) 3.8 - 9.9 K/cumm Hgb 15.0 11.9 - 15.5 g/dL [facility] ([place]) Hct 46.7(H) 35.6 - 45.5 % [facility] ([place]) Plt 370 150 - 400 K/cumm [facility] ([place]) MPV 9.4 9.1 - 12.3 fL [facility] ([place]) RBC 5.58(H) 3.90 - 5.20 M/cumm [facility] ([place]) MCV 83.7 81.3 - 96.4 fL [facility] ([place]) MCH 26.9(L) 27.1 - 33.3 pg [facility] ([place]) MCHC 32.1(L) 32.3 - 35.7 g/dL [facility] ([place]) RDW CV 15.8(H) 11.1 - 14.9 % [facility] ([place]) RDW SD 47.8 35.7 - 48.1 fL [facility] ([place]) NRBC abs 0.00 0.00 - 0.01 K/cumm [facility] ([place]) Blood 12/29/2023 8:25 AM CDT 12/29/2023 8:43 AM CDT us Pepper Morgan MD LAB BLOOD ORDERABLES Final Result Performing Organization Address City/[facility]/ZIP Co de Phone Number [facility] ([place]) 1 [facility] [place] [address] * (ABNORMAL) Iron profile w/ IBC (12/29/2023 8:25 AM CDT) [facility] Iron 55 35 - 145 mcg/dL TIBC 404(H) 250 - 400 mcg/dL [facility] ([place]) Transferrin saturation 14(L) 20 - 50 % [facility] ([place]) Blood 12/29/2023 8:25 AM CDT 12/29/2023 8:43 AM CDT us Pepper Morgan MD LAB BLOOD ORDERABLES Final Result [facility] ([place]) 1 [facility] [place] [address] * (ABNORMAL) Uric acid (12/29/2023 8:25 AM CDT) [facility] Uric acid 8.1(H) 2.5 - 7.0 mg/dL Blood 12/29/2023 8:25 AM CDT 12/29/2023 8:43 AM CDT us Pepper Morgan MD LAB BLOOD ORDERABLES Final Result [facility] ([place]) 1 [facility] [place] [address] * (ABNORMAL) Renal function panel (12/29/2023 8:25 AM CDT) [facility] Sodium 132(L) 135 - 145 mmol/L Potassium, pl 3.4 3.3 - 4.9 mmol/L [facility] ([place]) Chloride 88(L) 97 - 110 mmol/L [facility] ([place]) CO2 33(H) 22 - 32 mmol/L [facility] ([place]) Anion gap 11 2 - 15 mmol/L [facility] ([place]) BUN 62(H) 6 - 25 mg/dL [facility] ([place]) Creatinine 1.57(H) 0.60 - 1.10 mg/dL [facility] ([place]) Glucose 101 70 - 199 mg/dL [facility] ([place]) Comment: Interpretive Data Fasting glucose [...] interpretive data was last revised 2022. Calcium 9.9 8.5 - 10.3 mg/dL [facility] ([place]) Phosphorus, pl 4.7(H) 2.3 - 4.5 mg/dL [facility] ([place]) Albumin 3.9 3.5 - 5.0 g/dL [facility] ([place]) Blood 12/29/2023 8:25 AM CDT 12/29/2023 8:43 AM CDT us Pepper Morgan MD LAB BLOOD ORDERABLES Final Result [facility] ([place]) 1 [facility] Department [place] [address] documented in this encounter Visit Diagnoses Diagnosis Gouty arthritis of foot Encounter for medication monitoring Encounter for therapeutic drug monitoring Iron deficiency anemia, unspecified iron deficiency anemia type documented in this encounter Care Teams Manager Energy Relationship Specialty Start Date End Date Pepper Morgan MD PCP - General 09/16/16 Hank Garibay MD [address] [place] [address] [address] [place] [address] Surgeon Orthopedic Surgery 03/27/17 Jacky Murry MD [address] [place] [address] [address] [place] [address] Ophthalmology 03/27/17 Puma Mckenzie MD [address] [facility] [address] [place] [address] Surgeon Orthopedic Surgery 07/11/19 Neha Jackson, PT Physical Therapist Physical Therapy 12/01/21 Stalni Arauz MD [address] [facility] [address] [place] [address] Consulting Physician Cardiology 12/08/22 Tiffany Rojas PA [address] [facility] [address] [place] [address] Gastroenterology 12/30/22 Klaus Deshpande MD [address] [facility] [address] [place] [address] Consulting Physician Neurology 06/13/23 documented as of this encounter
--- OUTSIDE RECORDS SUMMARY | 2024-06-18 18:48 | XMS_ITS | Encounter Summary ---
Author Organization [facility] Healthcare Address [address] [place] [address] Care Team Providers Care Operator Control Room Name Role Phone Pepper Morgan MD Primary Care Provider + [phone] Hank Garibay MD Unavailable [phone] Jacky Murry MD Unavailable [phone] Puma Mckenzie MD Unavailable [phone] Neha Jackson PT Unavailable Unavailable Stalin Arauz MD Unavailable [phone] Tiffany Rojas Unavailable [phone] Klaus Deshpande MD Unavailable [phone] Encounter Details Date Type Department Care Team (Late st Contact Info) Description 01/04/2024 8:25 AM CDT Lab [address] [address] Acute on chronic heart failure with preserved ejection fraction (CMS/HCC) (HCC) Social History Tobacco Use Types Packs/Day Years Used Date Smoking Tobacco: Former Cigarettes 2 30 1 95 - 1981 Smokeless Tobacco: Never Alcohol Use Standard Drinks/Week Comments Not Currently 0 (1 standard drink = 0.6 oz pur e alcohol) [facility] Utilities Answer Date Recorded In the past 12 months has [employer], gas, oil, or water [employer] threatened to shut off services in your [...] often do you attend chur ch or mormonism services? Never 07/24/2023 Do you belong to any clubs o r organizations such as jew groups, unions, fraternal or athletic groups, or [...] place to sleep or slept in a chcf (including now)? No 07/24/2023 Personal Safety Answer Date Recorded Have you ever been in or are you currently in a harmful physical or emotional relationship or is someone making you feel afraid or unsafe? Denies 09/27/2023 Comments No Sex and Gender Information Value Date Recorded Sex Assigned at Not on file Legal Sex Female 4:33 AM GANG BOSS Gender Identity Not on file Sexual Orientation [...] Priority Date/Time Associated Diagnosis Comments EGFR Routine 01/04/2024 8:31 AM CDT Acute on chronic heart failure with preserved ejection fraction (CMS/HCC) (HCC) PRO B-TYPE NATRIURETIC PEPTIDE Routine 01/04/2024 8:31 AM CDT Acute on chronic heart failure with preserved ejection fraction (CMS/HCC) (HCC) BASIC METABOLIC PANEL Routine 01/04/2024 8:31 AM CDT Acute on chronic heart failure with preserved ejection fraction (CMS/HCC) (HCC) documented in this encounter Results * (ABNORMAL) eGFR (01/04/2024 8:31 AM CDT) eGFR 29(L) >=60 mL/min/1. 73 m2 Comment: Interpretive Data [...] interpretive data was last reviewed 2021. Blood 01/04/2024 8:31 AM CDT 01/04/2024 8:56 AM CDT Stalin Arauz MD LAB BLOOD ORDERABLES Final Resu lt [facility] ([place]) 1 [facility] Department [place] [address] * (ABNORMAL) Basic metabolic panel (01/04/2024 8:31 AM CDT) Pathologist [facility] Sodium 135 135 - 145 mmol/L Potassium, pl 4.2 3.3 - 4.9 mmol/L [facility] ([place]) Chloride 93(L) 97 - 110 mmol/L [facility] ([place]) CO2 32 22 - 32 mmol/L [facility] ([place]) Anion gap 11 2 - 15 mmol/L [facility] ([place]) BUN 55(H) 6 - 25 mg/dL [facility] ([place]) Creatinine 1.70(H) 0.60 - 1.10 mg/dL [facility] ([place]) Glucose 116 70 - 199 mg/dL [facility] ([place]) Comment: Interpretive Data Fasting glucose [...] interpretive data was last revised 2022. Calcium 9.2 8.5 - 10.3 mg/dL [facility] ([place]) Blood 01/04/2024 8:31 AM CDT 01/04/2024 8:56 AM CDT us Stalin Arauz MD LAB BLOOD ORDERABLES Final Resu lt [facility] ([place]) 1 [facility] Department [place] [address] * (ABNORMAL) Pro B-type natriuretic peptide (01/04/2024 8:31 AM CDT) NT-proBNP 3,933(H) <=450 pg/mL Comment: Interpretive Comments: A. Dyspnea [...] Interpretive Data Last Revised Date: 2018. Blood 01/04/2024 8:31 AM CDT 01/04/2024 8:56 AM CDT us Stalin Arauz MD LAB BLOOD ORDERABLES Final Resu lt [facility] ([place]) [address] [facility] Department [place] [address] documented in this encounter Visit Diagnoses Diagnosis Acute on chronic heart failure with preserved ejection fraction (CMS/HCC) (HCC) documented in this encounter Care Teams Operator Control Room Relationship Specialty Start Date End Date Pepper Morgan MD PCP - General 09/16/16 Hank Garibay MD [address] [facility] [address] [place] [address] Surgeon Orthopedic Surgery 03/27/17 Jacky Murry MD [address] [facility] [address] WARNER [address] [facility] [address] [place] [address] Ophthalmology 03/27/17 Puma Mckenzie MD [address] [facility] [address] [place] [address] Surgeon Orthopedic Surgery 07/11/19 Neha Jackson, PT Physical Therapist Physical Therapy 12/01/21 Stalin Arauz MD [address] [facility] [address] [place] [address] Consulting Physician Cardiology 12/08/22 Tiffany Rojas PA [address] [facility] [address] [place] [address] Gastroenterology 12/30/22 Klaus Deshpande MD [address] [facility] [address] [place] [address] Consulting Physician Neurology 06/13/23 documented as of this encounter
--- OUTSIDE RECORDS SUMMARY | 2024-06-18 18:48 | XMS_ITS | Encounter Summary ---
Author Organization [facility] Healthcare Address [address] [place] [address] Care Team Providers Care Laboratory Asst Name Role Phone Pepper Morgan MD Primary Care Provider + [phone] Hank Garibay MD Unavailable [phone] Jacky Murry MD Unavailable [phone] Puma Mckenzie MD Unavailable [phone] Neha Jackson PT Unavailable Unavailable Stalin Arauz MD Unavailable [phone] Tiffany Rojas Unavailable [phone] Klaus Deshpande MD Unavailable [phone] Andrea Waddell RN Unavailable [phone] Encounter Details Date Type Department Care Team (Late st Contact Info) Description 01/04/2024 Telephone [place] Nat Instructor at [address] [place] [id number] Hai Dalton MA Social History Tobacco Use Types Packs/Day Years Used Date Smoking Tobacco: Former Cigarettes 30 1 952 - 1981 Smokeless Tobacco: Never Alcohol Use Standard Drinks/Week Comments Not Currently 0 (1 standard drink = 0.6 oz pur e alcohol) [facility] Utilities Answer Date Recorded In the past 12 months has th e electric, gas, oil, or water [employer] threatened to shut off services in your [...] attend chur ch or catholic services? Never 07/24/2023 Do you belong to [...] place to sleep or slept in a prison (including now)? No 07/24/2023 Personal Safety Answer Date Recorded Have you ever been in or are you currently in a harmful physical or emotional relationship or is someone making you feel afraid or unsafe? 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 She is scheduled for her JONATHAN on 02/21. Is there anything else that can be done? * Telephone Encounter - Hai Dalton MA - 01/15/2024 9:00 AM CDT Patient advised * Telephone Encounter - Hai Dalton MA - 01/15/2024 8:09 AM CDT Patient called with update and states her weight is still at baseline. She has c/o legs burning at night and keeping her awake.Patient thinks it is due to circulation issues. Please advise. * Telephone Encounter - Hai Dalton MA - 01/10/2024 2:47 PM CDT Left detailed message on machine regarding lasix dosing. Patient to call back with any questions. Refill sent to pharmacy * Telephone Encounter - Hai Dalton MA - 01/10/2024 1:28 PM CDT Patient called today stating her weight is back down to normal. What dose do you want her to take of water pills? * Telephone Encounter - Hai Dalton MA - 01/04/2024 1:51 PM CDT Left message with dr response. Patient to call back with any questions. * Telephone Encounter - Hai Dalton MA - 01/04/2024 1:50 PM CDT ----- Message from Stalin Arauz MD sent at 01/04/2024 1:10 PM CDT ----- Continue same doses at least for another week and call back with progress report ----- Message ----- From: Hai Dalton MA Sent: 01/04/2024 12:51 PM CDT To: Stalin Arauz MD Yes. You said stay on 80mg BID and recheck labs today. documented in this encounter Plan of Treatment [...] on filedocumented in this encounter Care Teams Laboratory Asst Relationship Specialty Start Date End Date Pepper Morgan MD PCP - General 09/16/16 Hank Garibay MD [address] [facility] [address] [place] [address] Surgeon Orthopedic Surgery 03/27/17 Jacky Murry MD [address] [facility] [address] [place] [address] Ophthalmology 03/27/17 Puma Mckenzie MD [address] [facility] [address] [place] [address] Surgeon Orthopedic Surgery 07/11/19 Neha Jackson, PT Physical Therapist Physical Therapy 12/01/21 Stalin Arauz MD [address] [facility] [address] [place] [address] Consulting Physician Cardiology 12/08/22 Tiffany Rojas PA [address] [facility] [address] [place] [address] Gastroenterology 12/30/22 Klaus Deshpande MD [address] [facility] [address] [place] [address] Consulting Physician Neurology 06/13/23 Andrea Waddell RN [address] [place] [address] [address] [place] [address] Student Life Vice President 01/11/24 01/14/24 documented as of this encounter
--- OUTSIDE RECORDS SUMMARY | 2024-06-18 18:48 | XMS_ITS | Encounter Summary ---
Author Organization [facility] Address [address] [place] [address] Care Team Providers Care Oil Drilling Engineer Name Role Phone Pepper Morgan MD Primary Care Provider + [phone] Hank Garibay MD Unavailable [phone] Jacky Murry MD Unavailable [phone] Puma Mckenzie MD Unavailable [phone] Neha Jackson PT Unavailable Unavailable Stalin Arauz MD Unavailable [phone] Tiffany Rojas Unavailable [phone] Klaus Deshpande MD Unavailable [phone] Encounter Details Date Type Department Care Team (Late st Contact Info) Description 01/03/2024 Orders Only [place] Promotions Director at [address] [place] [address] Stalin Arauz MD [address] [place] [address] [address] [place] [address] Acute on chronic heart failure with preserved ejection fraction (CMS/HCC) (HCC) (Primary Dx) Social History Tobacco Use Types Packs/Day Years Used Date Smoking Tobacco: Former Cigarettes 2 30 1 952 - 1981 Smokeless Tobacco: Never Alcohol Use Standard Drinks/Week Comments Not Currently 0 (1 standard drink = 0.6 oz pur e alcohol) [facility] Utilities Answer Date Recorded In the past [...] often do you attend chur ch or orthodox services? Never 07/24/2023 Do you belong to any clubs o r organizations such as mosque groups, unions, fraternal or athletic groups, or [...] place to sleep or slept in a penitentiary (including now)? No 07/24/2023 Personal Safety Answer Date Recorded Have you ever been in or are you currently in a harmful physical or emotional relationship or is someone making you feel afraid or unsafe? Denies 09/27/2023 Comments No Sex and Gender Information Value Date Recorded Sex Assigned at Not on file Legal Sex Female 4:33 AM ANESTHESIA RESIDENT Gender Identity Not on file Sexual Orientation Not on file Occupation Industry Job Start Date Job End Date retired Not on file Not on file Not on file documented as of this encounter Plan of Treatment Scheduled Orders Name Type Priority Associated Diagnoses Orde r Schedule Basic metabolic panel Lab Routine Acute on chronic heart failure with preserved ejection fraction (CMS/HCC) ([facility]) 15 Occurrences starting 01/03/2024 until 01/02/2025, 1 completed Pro B-type natriuretic peptide Lab Routine Acute on chronic heart failure with preserved ejection fraction (CMS/HCC) ([facility]) 15 Occurrences starting 01/03/2024 until 01/02/2025, 1 completed documented as of this encounter Goals Goal [...] Results * (ABNORMAL) Pro B-type natriuretic peptide (01/04/2024 [...] Final Resu lt [facility] ([place]) 1 [facility] [place] [address] * (ABNORMAL) Basic metabolic panel (01/04/2024 8:31 AM CDT) Sodium 135 135 - 145 mmol/L Potassium, pl 4.2 3.3 - 4.9 mmol/L [facility] ([place]) Chloride 93(L) 97 - 110 mmol/L [facility] ([place]) CO2 32 22 - 32 mmol/L [facility] ([place]) Anion gap 11 2 - 15 mmol/L [facility] ([place]) BUN 55(H) 6 - 25 mg/dL [facility] ([place]) Creatinine 1.70(H) 0.60 - 1.10 mg/dL [facility] ([place]) Glucose 116 70 - 199 mg/dL [facility] ([place]) [...] 2022. Calcium 9.2 8.5 - 10.3 mg/dL [facility] ([place]) Blood 01/04/2024 8:31 AM CDT 01/04/2024 8:56 AM CDT us Stalin Arauz MD LAB BLOOD ORDERABLES Final Resu lt [facility] ([place]) 1 [facility] [place] [address] documented in this encounter Visit Diagnoses Diagnosis Acute on chronic heart failure with preserved ejection fraction (CMS/HCC) (HCC)- Primary documented in this encounter Care Teams Oil Drilling Engineer Relationship Specialty Start Date End Date Pepper Morgan MD PCP - General 09/16/16 Hank Garibay MD 4 [facility] [address] [place] [address] Surgeon Orthopedic Surgery 03/27/17 Jacky Murry MD 4 [facility] [address] [place] [address] Ophthalmology 03/27/17 Puma Mckenzie MD 4 [facility] [address] [place] [address] Surgeon Orthopedic Surgery 07/11/19 Neha Jackson, PT Physical Therapist Physical Therapy 12/01/21 Stalin Arauz MD 2 [facility] [address] [place] [address] Consulting Physician Cardiology 12/08/22 Tiffany Rojas PA 4 [facility] [address] [place] [address] Gastroenterology 12/30/22 Klaus Deshpande MD 4 [facility] [address] [place] [address] Consulting Physician Neurology 06/13/23 documented as of this encounter
--- OUTSIDE RECORDS SUMMARY | 2024-06-18 18:48 | XMS_ITS | Encounter Summary ---
Author Organization [facility] Healthcare Address [address] [place] [address] Care Team Providers Care Support Director Name Role Phone ePpper Morgan MD Primary Care Provider [phone] Hank Garibay MD Unavailable Jacky Murry MD Unavailable [phone] Puma Mckenzie MD Unavailable [phone] Neha Jackson PT Unavailable Unavailable Stalin Arauz MD Unavailable [phone] Tiffany Rojas Unavailable [phone] Klaus Deshpande MD Unavailable [phone] Andrea Waddell RN Unavailable Encounter Details Date Type Department Care Team (Late st Contact Info) Description 01/11/2024 Orders Only [facility] Medical Group [facility] [address] [place] [id number] Pepper Morgan MD [address] [place] [address] Social History Tobacco Use Types Packs/Day Years Used Date Smoking Tobacco: Former Cigarettes 2 30 1 952 - 1982 Smokeless Tobacco: Never Alcohol Use Standard Drinks/Week Comments Not Currently 0 (1 standard drink = 0.6 oz pur e alcohol) [facility] Utilities Answer Date Recorded In the [...] often do you attend chur ch or moravian services? Never 07/24/2023 Do you belong to [...] place to sleep or slept in a senior living (including now)? No 07/24/2023 Personal Safety Answer Date Recorded Have you ever been in or are you currently in a harmful physical or emotional relationship or is someone making you feel afraid or unsafe? 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 Gender Identity Not on file Sexual Orientation [...] Diagnoses Not on filedocumented in this encounter Discontinued Medications Medication Sig Discontinue Reason Start Date End Da te aspirin 81 mg enteric coated tablet Take 1 tablet (81 mg total) by mouth daily Side effects 01/11/2024 documented as of this encounter Care Teams Support Director Relationship Specialty Start Date End Date Pepper Morgan MD PCP - General 09/16/16 Hank Garibay MD [address] [place] [address] DR WARNER Sheridan [facility] [address] [place] [address] Surgeon Orthopedic Surgery 03/27/17 Jacky Murry MD [address] [facility] [address] WARNER [place]idan [facility] [address] [place] [address] Ophthalmology 03/27/17 Puma Mckenzie MD [address] [facility] [address] WARNER Sheridan [facility] [address] [place] [address] Surgeon Orthopedic Surgery 07/11/19 Neha Jackson, PT Physical Therapist Physical Therapy 12/01/21 Stalin Arauz MD [address] [facility] [address] [place] [address] Consulting Physician Cardiology 12/08/22 Tiffany Rojas PA [address] [facility] [address] [place] [address] Gastroenterology 12/30/22 Klaus Deshpande MD [address] [facility] [address] [facility] [place] [address] Consulting Physician Neurology 06/13/23 Andrea Waddell, XU [address] [place] [address] [address] [place] [address] Dynamite Reclaimer 01/11/24 01/14/24 documented as of this encounter
--- OUTSIDE RECORDS SUMMARY | 2024-06-18 18:48 | XMS_ITS | Encounter Summary ---
Author Organization [facility] Healthcare Address [address] [place] [address] Care Team Providers Care Topographic Computator Name Role Phone Pepper Morgan MD Primary Care Provider [phone]- [phone] Hank Garibay MD Unavailable [phone] Jacky Murry MD Unavailable [phone] Puma Mckenzie MD Unavailable [phone] Neha Jackson PT Unavailable Unavailable Stalin Arauz MD Unavailable [phone] Tiffany Rojas Unavailable [phone] Klaus Deshpande MD Unavailable [phone] Reason for Visit * Reason Onset Date Comments Covid 03/07/2024 Encounter Details Date Type Department Care Team (Late st Contact Info) Description 03/07/2024 Telephone [facility] Medical Group [facility] [address] [place] [address] Pepper Morgan MD [address] [place] [address] Covid Social History Tobacco Use Types Packs/Day Years Used Date Smoking Tobacco: Former Cigarettes 2 30 1 952 - 1981 Smokeless Tobacco: Never Alcohol Use Standard Drinks/Week Comments Not Currently 0 (1 standard drink = 0.6 oz pur e alcohol) [facility] Utilities Answer Date Recorded In [...] often do you attend chur ch or gnosticist services? Never 07/24/2023 Do you belong to [...] to sleep or slept in a senior care (including now)? No 07/24/2023 Personal Safety Answer Date Recorded Have you ever been in or are you currently in a harmful physical or emotional relationship or is someone making you feel afraid or unsafe? 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 Gender Identity Not on file Sexual Orientation Not on file Occupation Industry Job Start Date Job End Date retired Not on file Not on file Not on file documented as of this encounter Ordered Prescriptions Prescription Sig Dispense Quantity Refills Last Filled Start Date End Date molnupiravir 200 mg capsule (EUA)Indications:C OVID-19 (emergency use authorization) Take 4 capsules (800 mg total) by mouth every 12 (twelve) hours for 5 days 40 capsule 03/07/2024 documented in this encounter Miscellaneous Notes * Telephone Encounter - Katy Lopes RN - 03/11/2024 3:07 PM CDT Verbal order received from Dr. Morgan: Stop Paxlovid. Called patient and notified her to stop the Paxlovid. She voiced understanding. Also recommended she do the BRAT diet and advance her diet as tolerated. She voiced understanding. * Telephone Encounter - Katy Lopes RN - 03/11/2024 2:34 PM CDT TOKMS: Called patient about diarrhea. Has 3 doses of Paxlovid left. She said the past 2 nights she was on the toilet 8 times. She also has it after taking the am dose. Patient said her Covid symptoms are better. She said she is trying to drink a lot of fluids. She said today she is urinating okay. Patient said she has lost 2# and she did report it to Dr. Arauz. Reviewed BRAT diet with her and she voiced understanding. She said she cannot eat toast because it bothers her. Should patient stop taking Paxlovid? Please advise * Telephone Encounter - Jacqueline Plasencia - 03/11/2024 2:29 PM CDT Patient called stating that she is getting diarrhea while on paxlovid. States that it is helping her Covid symptoms, but also giving patient diarrhea. [phone] * Telephone Encounter - Abi Zelaya - 03/07/2024 10:34 AM CDT 03/13 after in office hours. * Telephone Encounter - Katy Lopes RN - 03/07/2024 9:39 AM CDT Verbal order received from Dr. Aliza Morgan: Molnupiravir Stay on Xarelto but make a teledoc visit after the 5 days of completing Molnupiravir to discuss blood thinner option. Xarelto is high risk for patient. Called patient and notified her of above and she voiced understanding. Patient said she gets the Xarelto from Dr. Arauz. Advised patient to still do a teledoc visit with [facility] to discuss and she voicedunderstanding. TOADM: Please set up teledoc appt for patient next week with [facility] to discuss blood thinner. * Telephone Encounter - Katy Lopes RN - 03/07/2024 8:52 AM CDT TOKMS: Called patient about Covid. Tested positive today for Covid. Symptoms started on 03/05: Head congestion Cough-yellow production Denied any sob, wheezing, or chest congestion. Denied any fever. Denied any GI problems. Taking Tylenol and cough syrup OTC. Reviewed Covid protocol and symptom control with patient. Encouraged fluids. Reviewed quarantine time with patient and voiced understanding to all. Patient advised to call back if not better and if symptoms worsen to go to ER. Patient voiced understanding and denied any questions. Patient is on Xarelto and interacts with Nvigen. Please advise * Telephone Encounter - Jacqueline Plasencia - 03/07/2024 8:35 AM CDT Patient called stating that she tested positive for covid today. States her symptoms started 03/05. Symptoms include: cough, chest congestion, no sore throat no body aches. States its all in my head . [phone] [facility] Tuan [place] documented in this encounter Plan of Treatment [...] on filedocumented in this encounter Care Teams Topographic Computator Relationship Specialty Start Date End Date Pepper Morgan MD PCP - General 09/16/16 Hank Garibay MD [address] [facility] [address] [place] [address] Surgeon Orthopedic Surgery 03/27/17 Jacky Murry MD [address] [facility] [address] [place] [address] Ophthalmology 03/27/17 Puma Mckenzie MD [address] [facility] [address] [place] [address] Surgeon Orthopedic Surgery 07/11/19 Neha Jackson, PT Physical Therapist Physical Therapy 12/01/21 Stalin Arauz MD [address] [facility] [address] [place] [address] Consulting Physician Cardiology 12/08/22 Tiffany Rojas PA [address] [facility] [address] [place] [address] Gastroenterology 12/30/22 Klaus Deshpande MD [address] [facility] [address] [place] [address] Consulting Physician Neurology 06/13/23 documented as of this encounter
--- OUTSIDE RECORDS SUMMARY | 2024-06-18 18:48 | XMS_ITS | Encounter Summary ---
Author Organization [facility] Address [address] [place] [address] Care Team Providers Care Sales Operations Assistant Name Role Phone Pepper Morgan MD Primary Care Provider + [phone] Hank Garibay MD Unavailable [phone] Jacky Murry MD Unavailable [phone] Puma Mckenzie MD Unavailable [phone] Neha Jackson PT Unavailable Unavailable Stalin Arauz MD Unavailable [phone] Tiffany Rojas Unavailable [phone] Klaus Deshpande MD Unavailable [phone] Encounter Details Date Type Department Care Team (Late st Contact Info) Description 01/25/2024 10:45 AM CDT Lab [address] [address] Prediabetes; CKD stage 3b, GFR 30-44 ml/min (HCC); Acute on chronic heart failure with preserved ejection fraction (CMS/HCC) (HCC); Chronic GERD; Medication monitoring encounter; Need for hepatitis B screening test Social History Tobacco Use Types Packs/Day Years Used Date Smoking Tobacco: Former Cigarettes 2 30 1 952 - 1981 Smokeless Tobacco: Never Alcohol Use Standard Drinks/Week Comments Not Currently 0 (1 standard drink = 0.6 oz pur e alcohol) [facility] Utilities Answer Date Recorded In the past [...] often do you attend chur ch or worship services? 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 Gender Identity Not on file Sexual [...] Priority Date/Time Associated Diagnosis Comments EGFR Routine 01/25/2024 10:56 AM CDT Acute on chronic heart failure with preserved ejection fraction (CMS/HCC) (HCC) CKD stage 3b, GFR 30-44 ml/min (HCC) URIC ACID Routine 01/25/2024 10:56 AM CDT Chronic GERD Medication monitoring encounter MAGNESIUM Routine 01/25/2024 10:56 AM CDT CKD stage 3b, GFR 30-44 ml/min ([facility]) HEMOGLOBIN A1C Routine 01/25/2024 10:56 AM CDT Prediabetes RENAL FUNCTION PANEL Routine 01/25/2024 10:56 AM CDT Acute on chronic heart failure with preserved ejection fraction (CMS/HCC) ([facility]) CKD stage 3b, GFR 30-44 ml/min ([facility]) ALBUMIN CREATININE RATIO, URINE Routine 01/25/2024 10:50 AM CDT Prediabetes documented in this encounter Results * (ABNORMAL) eGFR (01/25/2024 10:56 AM CDT) eGFR 34(L) >=60 mL/min/1. 73 m2 Comment: Interpretive Data [...] interpretive data was last reviewed 2021. Blood 01/25/2024 10:5 6 AM CDT 01/25/2024 11:27 AM CDT us Pepper Morgan MD LAB BLOOD ORDERABLES Final Result [facility] ([place]) [address] [facility] [place] [address] * Uric acid (01/25/2024 10:56 AM CDT) Uric acid 6.4 2.5 - 7.0 mg/dL Blood 01/25/2024 10:5 6 AM CDT 01/25/2024 11:27 AM CDT Pepper Morgan MD LAB BLOOD ORDERABLES Final Result Performing Organization Address [facility] Co de Phone Number [facility] LEONCIO ([place]) 1 [facility] [place] [address] * (ABNORMAL) Hemoglobin A1c (01/25/2024 10:56 AM CDT) Hgb A1C 5.8(H) 4.0 - 5.6 % Estimated Average Glucose 120 mg/dL [facility] ([place]) Comment: The ADA recommends reporting an estimated Average Glucose (eAG) with all Hemoglobin A1c results using the equation derived from a study of 507 normal and diabetic adults. ??Minority populations were underrepresented and children were not included. ?? (Diabetes Care 31:1340-7033, 2008). ??The eAG is not equivalent to a fasting glucose. Blood 01/25/2024 10:5 6 AM CDT 01/25/2024 11:27 AM CDT us Pepper Morgan MD LAB BLOOD ORDERABLES Final Result Performing Organization Address City/[facility]/ZIP Co de Phone Number [facility] ([place]) 1 [facility] [place] [address] * (ABNORMAL) Renal function panel (01/25/2024 10:56 AM CDT) Sodium 132(L) 135 - 145 mmol/L Potassium, pl 4.1 3.3 - 4.9 mmol/L [facility] ([place]) Chloride 90(L) 97 - 110 mmol/L [facility] ([place]) CO2 28 22 - 32 mmol/L [facility] ([place]) Anion gap 14 2 - 15 mmol/L [facility] ([place]) BUN 58(H) 6 - 25 mg/dL [facility] ([place]) Creatinine 1.48(H) 0.60 - 1.10 mg/dL [facility] ([place]) Glucose 115 70 - 199 mg/dL [facility] ([place]) Comment: Interpretive Data [...] 2022. Calcium 9.9 8.5 - 10.3 mg/dL [facility] ([place]) Phosphorus, pl 3.8 2.3 - 4.5 mg/dL [facility] ([place]) Albumin 3.8 3.5 - 5.0 g/dL [facility] ([place]) Blood 01/25/2024 10:5 6 AM CDT 01/25/2024 11:27 AM CDT us Pepper Morgan MD LAB BLOOD ORDERABLES Final Result [facility] ([place]) 1 [facility] Department [place] [address] * Magnesium (01/25/2024 10:56 AM CDT) Magnesium 2.0 1.4 - 2.5 mg/dL Blood 01/25/2024 10:5 6 AM CDT 01/25/2024 11:27 AM CDT us Pepper Morgan MD LAB BLOOD ORDERABLES Final Result [facility] ([place]) 1 [place] [address] * Albumin Creatinine Ratio, Urine (01/25/2024 10:50 AM CDT) Albumin Ur <12.0 mg/L Comment: Interpretive Data No reference range established. Current interpretive data was last revised 2018. Testing performed by: [address], [address] Creatinine Ur 11.1 mg/dL [facility] ([place]) Comment: Interpretive Data No reference range established. Current interpretive data was last revised 2018. Testing performed by: [address], [address] Albumin Creatinine Ratio, Ur See Comment 1 - 29 [facility] ([place]) Comment: Unable to calculate Testing performed by: [address], [address] Urine 01/25/2024 10:5 0 AM CDT 01/25/2024 1:57 PM CDT Pepper Morgan MD LAB URINE ORDERABLES Final Result Performing Organization Address [facility]/ZIP Co de Phone Number [facility] ([place]) 1 [place] [address] documented in this encounter Visit Diagnoses Diagnosis Prediabetes Other abnormal glucose CKD stage 3b, GFR 30-44 ml/min (HCC) Acute on chronic heart failure with preserved ejection fraction (CMS/HCC) (HCC) Chronic GERD Medication monitoring encounter Encounter for therapeutic drug monitoring Need for hepatitis B screening test documented in this encounter Care Teams Sales Operations Assistant Relationship Specialty Start Date End Date Pepper Morgan MD PCP - General 09/16/16 Hank Garibay MD [address] [place] [address] [address] HYLTON Fatimah [address] [place] [address] Surgeon Orthopedic Surgery 03/27/17 Jacky Murry MD [address] [facility] [address] WARNER Sheridan [facility] [address] [place] [address] Ophthalmology 03/27/17 Puma Mckenzie MD [address] [facility] [address] [place] [address] Surgeon Orthopedic Surgery 07/11/19 Neha Jackson, PT Physical Therapist Physical Therapy 12/01/21 Stalin Arauz MD [address] [facility] [address] [place] [address] Consulting Physician Cardiology 12/08/22 Tiffany Rojas PA [address] [facility] [address] [place] [address] Gastroenterology 12/30/22 Klaus Deshpande MD [address] [facility] [address] [place] [address] Consulting Physician Neurology 06/13/23 documented as of this encounter
--- OUTSIDE RECORDS SUMMARY | 2024-06-18 18:48 | XMS_ITS | Encounter Summary ---
Author Organization [facility] Address [address] [place] [address] Care Team Providers Care Armhole Presser Name Role Phone Pepper Morgan MD Primary Care Provider + [phone] Hank Garibay MD Unavailable [phone] Jacky Murry MD Unavailable [phone] Puma Mckenzie MD Unavailable [phone] Neha Jackson PT Unavailable Unavailable Stalin Arauz MD Unavailable [phone] Tiffany Rojas PA Unavailable [phone] Klaus Deshpande MD Unavailable [phone] Reason for Visit * Reason Comments Follow-up 6 mo f/u Atrial Fibrillation Shortness of Breath Encounter Details Date Type Department Care Team (Late st Contact Info) Description 04/01/2024 9:45 AM CDT Office Visit [facility] Aide at [address] [place] [id number] Maude Harris, NOEL [address] [place] [address] [address] [place] [address] Chronic atrial fibrillation (HCC) (Primary Dx); Peripheral arterial disease (HCC); Chronic heart failure with preserved ejection fraction (CMS/HCC) (HCC); 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 Social History Tobacco Use Types Packs/Day Years Used Date Smoking Tobacco: Former Cigarettes 2 30 1981 Smokeless Tobacco: Never Alcohol Use Standard Drinks/Week Comments Not Currently 0 (1 standard drink = 0.6 oz pur e alcohol) [facility] Utilities Answer Date Recorded In the past [...] any clubs o r organizations such as latter-day groups, unions, fraternal or athletic groups, or [...] place to sleep or slept in a jail (including now)? No 07/24/2023 Personal Safety Answer Date Recorded Have you ever been in or are you currently in a harmful physical or emotional relationship or is someone making you feel afraid or unsafe? 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 Gender Identity Not on file Sexual Orientation Not on file Occupation Industry Job Start Date Job End Date retired Not on file Not on file Not on file documented as of this encounter Last Filed Vital Signs Vital Sign Reading Time Taken Comments Blood Pressure 119/74 04/01/2024 9:54 AM CDT Pulse 73 04/01/2024 9:54 AM CDT Temperature - - Respiratory Rate - - Oxygen Saturation - - Inhaled Oxygen Concentration - - Weight 79.8 kg (176 lb) 04/01/2024 9:54 AM CDT Height 152.4 cm (5') 04/01/2024 9:54 AM CDT Body Mass Index 34.37 04/01/2024 9:54 AM CDT documented in this encounter Progress Notes * Maude Harris NP - 04/01/2024 9:45 AM CDT Cardiology note Reason for Office Visit: Chief Complaint Patient presents with Follow-up 6 mo f/u Atrial Fibrillation Shortness of Breath History of Present Illness: Tess Benedict is [...] She took a mucinex with no relief. Review of Systems Constitutional: Positive for malaise/fatigue. [...] (CMS/HCC) (HCC) Cough DVT (deep venous thrombosis) ([facility]/HCC) ([facility]) 1974 [...] HIP ARTHROPLASTY Left 11/01/2021 Dr. Mckenzie, [facility]. Family History Problem Relation Age of Onset [...] or 2 Frequency of Binge Drinking: Never Allergies: Allergies [...] total) by mouth daily [address] (PROTONIX) 40 mg EC [...] total) by mouth daily 30 tablet 11 No current facility-administered medications for this visit. Vitals BP 119/74 (BP Location: Right arm, Patient Position: Sitting) Pulse 73 Ht 152.4 cm (5') Wt 79.8 kg (176 lb) LMP (LMP Unknown) BMI 34.37 kg/m?? Vitals: 04/01/24 0954 BP: 119/74 Pulse: 73 Wt Readings from Last 3 Encounters: 04/01/24 79.8 kg (176 lb) 03/25/24 80 kg (176 lb 6.4 oz) 03/15/24 83.9 kg (185 lb) Body mass index is 34.37 kg/m??. Physical Exam Constitutional: General: She is [...] Component Value Date BILIRUBINU Negative 02/07/2017 AST 25 03/15/2024 ALT 25 03/15/2024 ALKPHOS 112 03/15/2024 ALBUMIN 3.5 03/15/2024 Lab Results Component Value Date SODIUM 133 (L) 03/16/2024 POTASSIUM 4.5 03/16/2024 CHLORIDE 101 03/16/2024 CO2 23 03/16/2024 ANIONGAP 9 03/16/2024 CK 114 11/09/2021 GLUCOSEUR 3+ (A) 06/25/2023 No results found for: BNP Lab Results Component Value Date SODIUM 133 (L) 03/16/2024 SODIUM 132 (L) 03/15/2024 SODIUM 132 (L) 01/25/2024 POTASSIUM 4.5 03/16/2024 POTASSIUM 5.1 (H) 03/15/2024 POTASSIUM 5.9 (H) 03/15/2024 CHLORIDE 101 03/16/2024 CHLORIDE 104 03/15/2024 CHLORIDE 90 (L) 01/25/2024 CO2 23 03/16/2024 CO2 22 03/15/2024 CO2 28 01/25/2024 BUNSER 28 (H) 03/16/2024 BUNSER 22 03/15/2024 BUNSER 58 (H) 01/25/2024 CREATININE 1.16 (H) 03/16/2024 CREATININE 1.09 03/15/2024 CREATININE 1.48 (H) 01/25/2024 GFRNAA 46 (L) 03/16/2024 GFRNAA 49 (L) 03/15/2024 GFRNAA 34 (L) 01/25/2024 GLUCOSE 90 03/16/2024 CALCIUM 8.9 03/16/2024 CALCIUM 9.3 03/15/2024 CALCIUM 9.9 01/25/2024 ALBUMIN 3.5 03/15/2024 ALBUMIN 3.8 01/25/2024 ALBUMIN 3.9 12/29/2023 PHOS 3.8 01/25/2024 PHOS 4.7 (H) 12/29/2023 PHOS 3.4 12/29/2022 Lab Results Component Value Date SODIUM 133 (L) 03/16/2024 POTASSIUM 4.5 03/16/2024 CHLORIDE 101 03/16/2024 CO2 23 03/16/2024 ANIONGAP 9 03/16/2024 BUNSER 28 (H) 03/16/2024 CREATININE 1.16 (H) 03/16/2024 GLUCOSE 90 03/16/2024 CALCIUM 8.9 03/16/2024 BILITOT 0.3 03/15/2024 PROT 6.7 03/15/2024 ALBUMIN 3.5 03/15/2024 ALKPHOS 112 03/15/2024 ALT 25 03/15/2024 AST 25 03/15/2024 Lab Results Component Value Date WBC 8.5 03/16/2024 HGB 11.3 (L) 03/16/2024 HCT 37.9 03/16/2024 LABPLAT 296 03/16/2024 MPV 8.5 (L) 03/16/2024 RBC 4.18 03/16/2024 MCV 90.7 03/16/2024 MCH 27.0 (L) 03/16/2024 MCHC 29.8 (L) 03/16/2024 RDWCV 16.5 (H) 03/16/2024 RDWSD 54.4 (H) 03/16/2024 NRBCABS 0.00 03/16/2024 Lab Results Component Value Date CHOL 128 07/22/2023 TRIG 96 07/22/2023 HDL 45 07/22/2023 LDLCALC 64 07/22/2023 NONHDLCHOL 83 07/22/2023 CHOLHDL 3 07/22/2023 Testing: Echocardiogram 04/2021 Normal left ventricular systolic [...] >50%). Ankle-brachial index in June 2022 1. Znpj-sb-aljzfhrn arterial insufficiency at rest in the right [...] waveform at the ankle. JONATHAN 10/24/2022 1. Wrmb-zm-bpkbtdnh arterial insufficiency at rest in the right [...] Jardiance, aldactone, Xarelto. Her dry weight is 172 lbs. This AM at home, she is 176 lbs. She is taking lasix 80 mg BID, metolazone 5 mg every other day and aldactone 25 mg daily. Check BMP / BNP. Per Dr Arauz, needs metolazone 5 mg daily until she reaches her dry weight of 172 lbs. Reviewed recent JONATHAN report. Patient does not [...] this visit: Chronic atrial fibrillation (HCC) (Primary) Peripheral arterial disease (HCC) Chronic heart failure with preserved ejection fraction (CMS/HCC) (HCC) 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 No follow-ups on file. 04/01/2024 10:20 AM Maude Harris NP Cc:Pepper Morgan MD documented in this encounter Miscellaneous Notes * Addendum Note - Malena Nguyen - 04/01/2024 9:45 AM CDTAddended by: MALENA NGUYEN on: 04/01/2024 10:26 AM Modules accepted: Orders documented in this encounter Plan of Treatment [...] Results * (ABNORMAL) Pro B-type natriuretic peptide (04/01/2024 [...] NP LAB BLOOD ORDERABLES nal Result [facility] [place] 1 [facility] Department [place] [address] * (ABNORMAL) Basic metabolic panel (04/01/2024 10:39 AM CDT) Sodium 128(L) 135 - 145 mmol/L Potassium, pl 3.2(L) 3.3 - 4.9 mmol/L [facility] ([place]) Chloride 81(L) 97 - 110 mmol/L [facility] ([place]) CO2 34(H) 22 - 32 mmol/L [facility] ([place]) Anion gap 13 2 - 15 mmol/L [facility] BUN 78(H) 6 - 25 mg/dL [facility] Creatinine 1.85(H) 0.60 - 1.10 mg/dL [facility] Glucose 96 70 - 199 mg/dL [facility] Comment: Interpretive Data Fasting glucose [...] 2022. Calcium 9.8 8.5 - 10.3 mg/dL [facility] Blood 04/01/2024 10:3 9 AM CDT 04/01/2024 1:47 PM CDT Maude Harris NP LAB BLOOD ORDERABLES nal Result [facility] 1 [facility] Department [place] [address] documented in this encounter Visit Diagnoses Diagnosis Chronic atrial fibrillation (HCC)- Primary Atrial fibrillation Peripheral arterial disease (HCC) Unspecified peripheral vascular disease Chronic heart failure with preserved ejection fraction (CMS/HCC) (HCC) 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 Essential hypertension, benign documented in this encounter Discontinued Medications Medication Sig Discontinue Reason Start Date End Da te ferrous fumarate 325 mg (106 mg iron) tabletIndications:Blee ding hemorrhoids,Acute lower GI bleeding,Iron deficiency anemia due to chronic blood loss Take 1 tablet (325 mg total) by mouth 3 (three) times a week Take with the vitamin-C 250 mg chewable tab 3 times weekly. The vitamin C will ensure absorption Alternate therapy 01/12/2024 04/01/2024 documented as of this encounter Historical Medications * This list may reflect changes made after this encounter. Ferrocite 324 mg (106 mg iron) tablet Take 324 mg by mouth 3 (three) times a day 01/12/2024 added in this encounter Care Teams Armhole Presser Relationship Specialty Start Date End Date Pepper Morgan MD PCP - General 09/16/16 Hank Garibay MD [address] [facility] [address] [place] [address] Surgeon Orthopedic Surgery 03/27/17 Jacky Murry MD [address] [facility] [address] [place] [address] Ophthalmology 03/27/17 Puma Mckenzie MD [address] [facility] [address] [place] [address] Surgeon Orthopedic Surgery 07/11/19 Neha Jackson, PT Physical Therapist Physical Therapy 12/01/21 Stalin Arauz MD [address] [facility] [address] [place] [address] Consulting Physician Cardiology 12/08/22 Tiffany Rojas PA [address] [facility] [address] [place] [address] Gastroenterology 12/30/22 Klaus Deshpande MD [address] [facility] [address] [place] [address] Consulting Physician Neurology 06/13/23 documented as of this encounter
--- OUTSIDE RECORDS SUMMARY | 2024-06-18 18:48 | XMS_ITS | Encounter Summary ---
Author Organization [facility] Healthcare Address [address] [place] [address] Care Team Providers Care Co Pilot Name Role Phone Pepper Morgan MD Primary Care Provider +- [phone] Hank Garibay MD Unavailable [phone] Jacky Murry MD Unavailable [phone] Puma Mckenzie MD Unavailable [phone] Neha Jackson PT Unavailable Unavailable Stailn Arauz MD Unavailable [phone] Tiffany Rojas Unavailable [phone] Klaus Deshpande MD Unavailable [phone] Reason for Visit * Reason Onset Date Comments Gout 01/03/2024 Encounter Details Date Type Department Care Team (Late st Contact Info) Description 01/03/[address] [facility] [address] [place] [address] Pepper Morgan MD [address] [address] Gout Social History Tobacco Use Types Packs/Day Years Used Date Smoking Tobacco: Former Cigarettes 2 30 1 952 - 1981 Smokeless Tobacco: Never Alcohol Use Standard Drinks/Week Comments Not Currently 0 (1 standard drink = 0.6 oz pur e alcohol) [facility] Utilities Answer Date Recorded In [...] attend chur ch or taoism services? 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 30 tablet 2 01/03/2024 02/08/2024 documented in this encounter Miscellaneous Notes * Telephone Encounter - Katy Lopes RN - 01/03/2024 12:24 PM CDT Consulted with Dr. Morgan and verbal order received: Prednisone 10 mg-take 2 daily x 5 days, then take 1 daily # 30 with 2 RF Called patient and notified her of order from [facility] and reviewed directions with her. Patient repeated directions and voiced understanding. Advised her to keep her appt next week with [facility] and she voiced understanding. RX sent to [facility] by anali. * Telephone Encounter - Katy Lopes RN - 01/03/2024 11:59 AM CDT TOKMS: Called patient about her pain and gout. Yesterday am she woke up and she had pain in the arch of her L foot and it hurt to walk on it. Today all of her toes on both feet are hurting. The top of her L foot is also hurting in the arch area.. The main problem is pain in her feet and she feels like it is a gout issue. She said it is like thepain she had before when she had gout. Patient said she has been using a walker in the house. Patient is on Allopurinol 100 mg daily and she is tolerating that okay. She is questioning if she should try the colchicine again and wonders if it was something else thatmade her sick instead of that. She denied any redness or swelling to her toes or feet. She did take Tylenol for her pain. Call on cell phone if no answer on home number. Please advise * Telephone Encounter - Jacqueline Plasencia - 01/03/2024 8:12 AM CDT Patient states starting yesterday morning that she was having a hard time getting up as her feet hurt. States the same thing happened this morning and patient now realizes that it is gout. States sheis unable to walk without a walker. [phone] [facility] documented in this encounter Plan of Treatment Not on file documented as of this encounter Goals Goal Patient Goal Type Associated Problems Recent Progress Patient-Stated? Author -Pain Behavioral Health Improving( 3:34 PM CDT) No Domitila Garay, RN Note: Patient will establish a comfort-function goal and identify the pain level that will allow the patient to perform desired activities and achieve an acceptable quality of life. documented as of this encounter Visit Diagnoses Not on filedocumented in this encounter Care Teams Co Pilot Relationship Specialty Start Date End Date Pepper Morgan MD PCP - General 09/16/16 Hank Garibay MD [address] [facility] [address] [place] [address] Surgeon Orthopedic Surgery 03/27/17 Jacky Murry MD [address] [facility] [address] [place] [address] Ophthalmology 03/27/17 Puma Mckenzie MD [address] [facility] [address] [place] [address] Surgeon Orthopedic Surgery 07/11/19 Neha Jackson, PT Physical Therapist Physical Therapy 12/01/21 Stalin Arauz MD [address] [facility] [address] [place] [address] Consulting Physician Cardiology 12/08/22 Tiffany Rojas PA [address] [facility] [address] [place] [address] Gastroenterology 12/30/22 Klaus Deshpande MD [address] [facility] [address] [place] [address] Consulting Physician Neurology 06/13/23 documented as of this encounter
--- OUTSIDE RECORDS SUMMARY | 2024-06-18 18:48 | XMS_ITS | Encounter Summary ---
Author Organization [facility] Healthcare Address [address] [place] [address] Care Team Providers Care Horse Exerciser Name Role Phone Pepper Morgan MD Primary Care Provider + [phone] Hank Garibay MD Unavailable [phone] Jacky Murry MD Unavailable [phone] Puma Mckenzie MD Unavailable [phone] Neha Jackson PT Unavailable Unavailable Stalin Arauz MD Unavailable [phone] Tiffany Rojas Unavailable [phone] Klaus Deshpande MD Unavailable [phone] Encounter Details Date Type Department Care Team (Late st Contact Info) Description 04/01/2024 10:35 AM CDT [address] Chronic heart failure with preserved ejection fraction (CMS/HCC) (HCC) Social History Tobacco Use Types Packs/Day Years Used Date Smoking Tobacco: Former Cigarettes 2 30 1 95 - 1981 Smokeless Tobacco: Never Alcohol Use Standard Drinks/Week Comments Not Currently 0 (1 standard drink = 0.6 oz pur e alcohol) [facility] Utilities Answer Date Recorded In the past [...] often do you attend chur ch or adventist services? 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 Gender Identity Not on file Sexual Orientation [...] Priority Date/Time Associated Diagnosis Comments EGFR Routine 04/01/2024 10:39 AM CDT Chronic heart failure with preserved ejection fraction (CMS/HCC) (HCC) PRO B-TYPE NATRIURETIC PEPTIDE Routine 04/01/2024 10:39 AM CDT Chronic heart failure with preserved ejection fraction (CMS/HCC) (HCC) BASIC METABOLIC PANEL Routine 04/01/2024 10:39 AM CDT Chronic heart failure with preserved ejection fraction (CMS/HCC) (HCC) documented in this encounter Results * (ABNORMAL) eGFR (04/01/2024 10:39 AM CDT) [...] CDT Maude Harris NP LAB BLOOD ORDERABLES [facility] Result [facility] 1 [facility] Department [place] [address] * (ABNORMAL) Basic metabolic panel (04/01/2024 10:39 AM CDT) Sodium 128(L) 135 - 145 mmol/L Potassium, pl 3.2(L) 3.3 - 4.9 mmol/L [facility] ([place] Chloride 81(L) 97 - 110 mmol/L [facility] CO2 34(H) 22 - 32 mmol/L [facility] ([place]) Anion gap 13 2 - 15 mmol/L [facility] ([place]) BUN 78(H) 6 - 25 mg/dL [facility] ([place] Creatinine 1.85(H) 0.60 - 1.10 mg/dL [facility] ([place] Glucose 96 70 - 199 mg/dL [facility] ([place] Comment: Interpretive Data Fasting glucose >/= [...] 2022. Calcium 9.8 8.5 - 10.3 mg/dL [facility] ([place] Blood 04/01/2024 10:3 9 AM CDT 04/01/2024 1:47 PM CDT Maude Harris BARKER OPERATOR LAB BLOOD ORDERABLES [facility] Result [facility] ([place] 1 [facility] Department of Laboratories [place], [place] [id number] * (ABNORMAL) Pro B-type natriuretic peptide (04/01/2024 [...] 04/01/2024 1:46 PM CDT us Maude Harris BARKER OPERATOR LAB BLOOD ORDERABLES Fi nal Result [facility] ([place] 1 [facility] Department of [employer] [place], [place] [id number] documented in this encounter Visit Diagnoses Diagnosis Chronic heart failure with preserved ejection fraction (CMS/HCC) (HCC) documented in this encounter Care Teams Horse Exerciser Relationship Specialty Start Date End Date Pepper Morgan MD PCP - General 09/16/16 Hank Garibay MD [address] [facility] [address] [place] [address] Surgeon Orthopedic Surgery 03/27/17 Jacky Murry MD [address] [facility] [address] [place] [facility] [address] [place] [address] Ophthalmology 03/27/17 Puma Mckenzie MD [address] [facility] [address] [place] [address] Surgeon Orthopedic Surgery 07/11/19 Neha Jackson PT Physical Therapist Physical Therapy 12/01/21 Stalin Arauz MD [address] [facility] [address] [place] [address] Consulting Physician Cardiology 12/08/22 Tiffany Rojas PA [address] [facility] [address] [place] [address] Gastroenterology 12/30/22 Klaus Deshpande MD [address] [facility] [address] [place] [address] Consulting Physician Neurology 06/13/23 documented as of this encounter
--- OUTSIDE RECORDS SUMMARY | 2024-06-18 18:48 | XMS_ITS | Encounter Summary ---
Author Organization [facility] Healthcare Address [address] [place] [address] Care Team Providers Care Skydiving Instructor Name Role Phone Pepper Morgan MD Primary Care Provider + [phone] Hank Garibay MD Unavailable [phone] Jacky Murry MD Unavailable [phone] Puma Mckenzie MD Unavailable [phone] Neha Jackson PT Unavailable Unavailable Stalin Arauz MD Unavailable [phone] Tiffany Rojas Unavailable [phone] Klaus Deshpande MD Unavailable [phone] Encounter Details Date Type Department Care Team (Late st Contact Info) Description 12/29/2023 8:15 AM CDT Lab [address] [id number] Acute on chronic heart failure with preserved ejection fraction (CMS/HCC) (HCC) Social History Tobacco Use Types Packs/Day Years Used Date Smoking Tobacco: Former Cigarettes 2 30 1 95 - 1981 Smokeless Tobacco: Never Alcohol Use Standard Drinks/Week Comments Not Currently 0 (1 standard drink = 0.6 oz pur e alcohol) [facility] Utilities Answer Date Recorded In the past 12 months has [employer], gas, oil, or water [employer] threatened to shut off services in your [...] often do you attend chur ch or anabaptism services? 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 Author BH-Pain Behavioral Health Improving( 3:34 PM CDT) No oDmitila Garay, RN Note: Patient will establish a comfort-function goal and identify the pain level that will allow the patient to perform desired activities and achieve an acceptable quality of life. documented as of this encounter Procedures Procedure Name Priority Date/Time Associated Diagnosis Comments EGFR Routine 12/29/2023 8:25 AM CDT Acute on chronic heart failure with preserved ejection fraction (CMS/HCC) (HCC) PRO B-TYPE NATRIURETIC PEPTIDE Routine 12/29/2023 8:25 AM CDT Acute on chronic heart failure with preserved ejection fraction (CMS/HCC) (HCC) BASIC METABOLIC PANEL Routine 12/29/2023 8:25 AM CDT Acute on chronic heart failure with preserved ejection fraction (CMS/HCC) (HCC) documented in this encounter Results * (ABNORMAL) eGFR (12/29/2023 8:25 AM CDT) eGFR 31(L) >=60 mL/min/1. 73 m2 Comment: Interpretive Data [...] 8:25 AM CDT 12/29/2023 8:43 AM CDT Stalin Arauz MD LAB BLOOD ORDERABLES Final [facility] lt [facility] 1 [facility] [place] [address] * (ABNORMAL) Basic metabolic panel (12/29/2023 8:25 AM CDT) [facility] Sodium 132(L) 135 - 145 mmol/L Potassium, pl 3.4 3.3 - 4.9 mmol/L [facility] ([place]) Chloride 88(L) 97 - 110 mmol/L [facility] ([place]) CO2 32 22 - 32 mmol/L [facility] ([place]) Anion gap 12 2 - 15 mmol/L [facility] ([place]) BUN 60(H) 6 - 25 mg/dL [facility] ([place]) Creatinine 1.60(H) 0.60 - 1.10 mg/dL [facility] ([place]) Glucose 101 70 - 199 mg/dL [facility] ([place]) Comment: Interpretive Data Fasting glucose [...] 2022. Calcium 9.7 8.5 - 10.3 mg/dL [facility] ([place]) Blood 12/29/2023 8:25 AM CDT 12/29/2023 8:43 AM CDT us Stalin Arauz MD LAB BLOOD ORDERABLES Final Resu lt [facility] ([place]) 1 [facility] [place] [address] * (ABNORMAL) Pro B-type natriuretic peptide (12/29/2023 [...] MD LAB BLOOD ORDERABLES Final Resu lt [facility] [place]) 1 [facility] [place] [address] documented in this encounter Visit Diagnoses Diagnosis Acute on chronic heart failure with preserved ejection fraction (CMS/HCC) (HCC) documented in this encounter Care Teams Skydiving Instructor Relationship Specialty Start Date End Date Pepper Morgan MD PCP - General 09/16/16 Hank Garibay MD [address] [facility] [address] [place] [address] Surgeon Orthopedic Surgery 03/27/17 Jacky Murry MD [address] [facility] [address] [place] [address] Ophthalmology 03/27/17 Puma Mckenzie MD [address] [facility] [address] [place] [address] Surgeon Orthopedic Surgery 07/11/19 Neha Jackson, PT Physical Therapist Physical Therapy 12/01/21 Stalin Arauz MD [address] [facility] [address] [place] [address] Consulting Physician Cardiology 12/08/22 Tiffany Rojas PA [address] [facility] [address] [place] [address] Gastroenterology 12/30/22 Klaus Deshpande MD [address] [facility] [address] [place] [address] Consulting Physician Neurology 06/13/23 documented as of this encounter
--- OUTSIDE RECORDS SUMMARY | 2024-06-18 18:48 | XMS_ITS | Encounter Summary ---
Author Organization [facility] Healthcare Address [address] [place] [address] Care Team Providers Care Protection Agent Name Role Phone Pepper Morgan MD Primary Care Provider + [phone] Hank Garibay MD Unavailable [phone] Jacky Murry MD Unavailable [phone] Puma Mckenzie MD Unavailable [phone] Neha Jackson PT Unavailable Unavailable Stalin Arauz MD Unavailable [phone] Tiffany Rojas Unavailable [phone] Klaus Deshpande MD Unavailable [phone] Andrea Waddell RN Unavailable Reason for Visit * Reason Comments Follow-up Encounter Details Date Type Department Care Team (Late st Contact Info) Description 01/11/2024 10:15 AM CDT Office Visit [facility] [address] [place] [id number] Pepper Morgan MD [address] [place] [address] Gouty arthritis of foot (Primary Dx); Acute on chronic heart failure with preserved ejection fraction (CMS/HCC) (HCC); Paroxysmal atrial fibrillation (CMS/HCC) (HCC); Contusion of skin; History of malignant melanoma; Chronic GERD; Esophageal dysphagia; Need for hepatitis B screening test; Medication monitoring encounter; CKD stage 3b, GFR 30-44 ml/min (HCC); Prediabetes; Bleeding hemorrhoids; Acute lower GI bleeding; Iron deficiency anemia due to chronic blood loss Social History Tobacco Use Types Packs/Day Years Used Date Smoking Tobacco: Former Cigarettes 1981 Smokeless Tobacco: Never Alcohol Use Standard Drinks/Week Comments Not Currently 0 (1 standard drink = 0.6 oz pur e alcohol) [facility] Utilities Answer Date Recorded In the past 12 months has [employer], gas, oil, or water [employer] threatened to shut off services in your [...] often do you attend chur ch or latter-day services? Never 07/24/2023 Do you belong to any clubs o r organizations such as restoration groups, unions, fraternal or athletic groups, or [...] in a snf (including now)? No 07/24/2023 Personal Safety Answer Date Recorded Have you ever been in or are you currently in a harmful physical or emotional relationship or is someone making you feel afraid or unsafe? 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 Gender Identity Not on file Sexual Orientation Not on file Occupation Industry Job Start Date Job End Date retired Not on file Not on file Not on file documented as of this encounter Last Filed Vital Signs Vital Sign Reading Time Taken Comments Blood Pressure 112/62 01/11/2024 10:15 AM CDT Pulse 97 01/11/2024 10:15 AM CDT Temperature 36.3 ??C (97.3 ??F) 01/11/2024 10:15 AM C DT Respiratory Rate 20 01/11/2024 10:15 AM CDT Oxygen Saturation 98% 01/11/2024 10:15 AM CDT Inhaled Oxygen Concentration - - Weight 80.7 kg (178 lb) 01/11/2024 10:15 AM CDT Height - - Body Mass Index 33.63 10/27/2023 11:01 AM CDT documented in this encounter Patient Instructions * Patient Instructions* Pepper Morgan MD - 01/11/2024 10:15 AM CDT Tess Mathewwmake to review this After Visit Summary ( AVS ) for accuracy & contact us if you find need for changes. == ORDERS FOR AMS STAFF TO ARRANGE: 1. Labs for 2 weeks to be drawn up at [facility] = uric acid level diagnosis = gout medication monitoring Hemoglobin A1c, urine for microalbumin = prediabetes Renal panel, magnesium = CKD 3B NT pro BNP = acute on chronic diastolic heart failure With copies Of all these tests to Dr. Arauz Routine hepatitis-B screening Hepatitis B Surface Antigen Blood Hepatitis B surface antibody (immune status) Blood Hepatitis B core antibody, total Blood 2. Refer Dr. Hunt evaluate for history melanoma and take over dermatology care- (Pt wants to wait for now.) Forgot to mention she needs to be on xzkj-qqr-krovrik iron 325 mg Monday with a 250 mg chewable vitamin-C tablet. She does have a very mild iron-deficiency anemia. She also needs to be on B12 1000 mcg daily because she was taking Protonix and will not absorb B12 from her food please put this on her after visit summary and tell her about MEDICATION CHANGES RECOMMENDED TODAY: Increase allopurinol from 100-200 Keep current prednisone to prevent a precipitating gout while we are titrating this medicines Keep recommendations on the diuretic changes from Dr. Arauz I am discussing possible discontinuation of aspirin with Dr. Arauz and will let you know Begin iron 325 mg with vitamin-C 250 mg 3 days weekly for mild iron deficiency anemia The MEDICATION LIST that your providers BELIEVE YOU ARE TAKING The Complete MEDICATION LIST at conclusion of visit 01/11/2024 Current Outpatient Medications: albuterol HFA, 2 puff, inhalation, Q6H PRN aspirin, 81 mg, oral, Daily cetirizine, 10 mg, oral, Nightly cholecalciferol, 2,000 Units, oral, Daily empagliflozin, 10 mg, oral, Daily fluticasone propion-salmeteroL, 1 puff, inhalation, Daily furosemide, 80 mg, oral, Daily metOLazone, 5 mg, oral, Daily ondansetron ODT, 4 mg, oral, Q8H PRN potassium chloride ER, 40 mEq, oral, BID (Patient taking differently: 40-80 mEq, oral, 2 times daily, 80 meq in the morning 40 meq in the evening) pramipexole, 0.5 mg, oral, BID predniSONE, Take 2 tabs (20 mg) daily x 5 days then just take 1 tab (10 mg) daily. propranoloL, 20 mg, oral, BID PRN (Patient taking differently: 20 mg, oral, Daily) rivaroxaban, 20 mg, oral, Daily (Patient taking differently: 20 mg, oral, Daily with lunch) spironolactone, 25 mg, oral, Daily allopurinoL, 200 mg, oral, Daily [START ON 01/12/2024] ascorbic acid (vitamin C), 250 mg, oral, 3x weekly carvediloL, 6.25 mg, oral, BID with meals (bkfst, dinner) (Patient not taking: Reported on 10/26/2023) [START ON 01/12/2024] ferrous fumarate, 106 mg of elemental iron, oral, 3x weekly mupirocin, Apply topically 3 (three) times a day pantoprazole DR, 40 mg, oral, Daily polyethylene glycol, 17 g, oral, Daily PRN ALLERGIES Allergies Allergen Reactions Celecoxib Anaphylaxis Scopolamine Mental status changes Delirium postop after joint replacement due to this medicine Sulfa (Sulfonamide Antibiotics) Anaphylaxis Amlodipine Swelling Lisinopril Swelling Trazodone Swelling Tongue Duloxetine Hcl Unknown Cipro [Ciprofloxacin Hcl] Vomiting Cymbalta [Duloxetine] Fatigue Sleepiness, tiredness possibly related to 20 mg morning dose of this medicine discontinued 11/30/2020 Sinemet [Carbidopa-Levodopa] Other (See comments) Night hines HOME SAFETY I recommend installing MOTION ACTIVATED LIGHTING for nighttime safety and REMOVAL OF ALL THROW RUGSFROM HOME. Motion activated hallway and bedroom lighting --AND-- removal of throw rugs from the home has been found in multiple studies to prevent falls and injuries. PLEASE REVIEW this CARE TEAM and advise [...] Klaus Deshpande MD as Consulting Physician (Neurology) Andrea Waddell RN as Edging Supervisor Primary Pharmacy/DME suppliers: [facility] [id number] [facility], [facility] [address] [place] [address] Please inform us if you have a change before follow-up visit For further INTERNET RESEARCH on your medical concerns: I recommend [email or web address] coin,NIH.[email or web address] = the [employer] library of medicine online site. This is a consistently reliable site for your personal medical research. documented in this encounter Ordered Prescriptions Prescription Sig Dispense Quantity Refills Last Filled Start Date End Date ascorbic acid, vitamin C, 250 mg tablet,chewable Take 250 mg by mouth 3 (three) times a week Take with the iron 325 mg to ensure absorption Monday 90 tablet 1 01/12/[address] (PROTONIX) 40 mg EC tabletIndications: Treatment of Non-Bleeding Gastric Disorder Take 1 tablet (40 mg total) by mouth daily 90 tablet 2 01/11/2024 ferrous fumarate 325 mg (106 mg iron) tabletIndications: Bleeding hemorrhoids,Acute lower GI bleeding,Iron deficiency anemia due to chronic blood loss Take 1 tablet (325 mg total) by mouth 3 (three) times a week Take with the vitamin-C 250 mg chewable tab 3 times weekly. The vitamin C will ensure absorption 60 tablet 1 01/12/2024 4 mupirocin (BACTROBAN) 2 % ointmentIndication s:Contusion of skin Apply topically 3 (three) times a day 22 g 1 01/11/2024 4 allopurinoL (ZYLOPRIM) 100 mg tabletIndications: Gouty arthritis of foot Take 2 tablets (200 mg total) by mouth daily 60 tablet 2 01/11/2024 4 documented in this encounter Progress Notes * Pepper Morgan MD - 01/11/2024 10:15 AM CDT Images from the original note were not included. Patient ID: Tess Benedict is a 88 y.o. female. Tess Benedict presents for follow-up of her medication review ongoing problems tolerating her medicines with nausea, joint pains,gout, esophageal dysphagia, HFpEF, muscle cramps --multiple telephone calls to try and adjust medicines get her feeling better... Here to try and sort at all out. PLAN : ORDERS TO BE REVIEWED WITH her AT FOLLOW-UP VISIT: Return in about 4 weeks (around 02/08/2024) for Dr. Morgan recheck on kidneys, gout medicines and heart medicines. . Orders successfully placed before signing the note: Orders Placed This Encounter Procedures Hepatitis B core antibody, total Blood Hepatitis B surface antibody (immune status) Blood Hepatitis B Surface Antigen Blood Uric acid Hemoglobin A1c Renal function panel Magnesium Albumin Creatinine Ratio, Urine MEDICATION CHANGES AND REFILL MANAGEMENT: medication list at conclusion of this encounter: Current Outpatient Medications: albuterol HFA, 2 puff, inhalation, Q6H PRN aspirin, 81 mg, oral, Daily cetirizine, 10 mg, oral, Nightly cholecalciferol, 2,000 Units, oral, Daily empagliflozin, 10 mg, oral, Daily fluticasone propion-salmeteroL, 1 puff, inhalation, Daily furosemide, 80 mg, oral, Daily metOLazone, 5 mg, oral, Daily ondansetron ODT, 4 mg, oral, Q8H PRN potassium chloride ER, 40 mEq, oral, BID (Patient taking differently: 40-80 mEq, oral, 2 times daily, 80 meq in the morning 40 meq in the evening) pramipexole, 0.5 mg, oral, BID predniSONE, Take 2 tabs (20 mg) daily x 5 days then just take 1 tab (10 mg) daily. propranoloL, 20 mg, oral, BID PRN (Patient taking differently: 20 mg, oral, Daily) rivaroxaban, 20 mg, oral, Daily (Patient taking differently: 20 mg, oral, Daily with lunch) spironolactone, 25 mg, oral, Daily allopurinoL, 200 mg, oral, Daily [START ON 01/12/2024] ascorbic acid (vitamin C), 250 mg, oral, 3x weekly carvediloL, 6.25 mg, oral, BID with meals (bkfst, dinner) (Patient not taking: Reported on 10/26/2023) [START ON 01/12/2024] ferrous fumarate, 106 mg of elemental iron, oral, 3x weekly mupirocin, Apply topically 3 (three) times a day pantoprazole DR, 40 mg, oral, Daily polyethylene glycol, 17 g, oral, Daily PRN HPI - ASSESSMENT & DIFFERENTIAL DIAGNOSIS Got arthritis: Febuxostat 40 mg daily to replace allopurinol because of nausea and vomiting developing on allopurinol now x2 not resolved despite getting rid of the constipation problem Did not want to try and afford the Febuxostat 40== insisted it was colchicine making her nauseated.Tried back on allopurinol Dr. Pepper Morgan 1. Gouty arthritis of foot Symptom-free now with prednisone 10 mg daily. This is the only medication we been able to use to prevent her from having uric acid precipitate as we treat with the allopurinol. She was going to double the allopurinol 200 mg keep 10 mg prednisone re-evaluate uric acid level in 2 weeks try to get to 300 mg Zyloprim at that point in time and then will try to taper off prednisone. Unfortunately unable to tolerate the colchicine which with the bed much safer long-term. allopurinoL (ZYLOPRIM) 100 mg tablet; Take 2 tablets (200 mg total) by mouth daily Dispense: 60 tablet; Refill: 2 2. Acute on chronic heart failure with preserved ejection fraction (CMS/HCC) ([facility]) 3. Paroxysmal atrial fibrillation (CMS/HCC) ([facility]) Appreciate consultation from Dr. Arauz. She was on Xarelto 20 now instead of Eliquis and she was using a baby aspirin. Has a lot of skin contusions and I message to Dr. Arauz through secure chat to see if we can come off aspirin. Review of her chart indicates she does have some valvular heart disease but not any that usually he is in need of aspirin and she will be on Xarelto long-term because ofthe AFib 4. Contusion of skin Bactroban on any contusions. She was a lot of senile purpura. on the distal arms and especially right leg. Nothing is open at this time and there is no active infection at this time mupirocin (BACTROBAN) 2 % ointment; Apply topically 3 (three) times a day Dispense: 22 g; Refill: 1 5. History of malignant melanoma Lost to follow-up [place]ermat[place] She was referred to Dr. Hunt in [place] to take over care 6. Chronic GERD Symptom-free with the Protonix due for update. B12 to be used with this medicine and proper dosing also reviewed to eat within 30 minutes of taking the pill in the morning pantoprazole DR (PROTONIX) 40 mg EC tablet; Take 1 tablet (40 mg total) by mouth daily Dispense: 90tablet; Refill: 2 7. Esophageal dysphagia Completely symptom-free since she has been on the Protonix consider problem resolved 8. Chronic blood loss iron deficiency anemia Concerning finding. Iron profile did confirm iron deficiency that is appropriate for iron 3 days weekly with vitamin-C she needs to be on ylls-kku-mvwcenr iron 325 mg Monday with a 250 mg chewable vitamin-C tablet. She does have a very mild iron-deficiency anemia. She also needs to be on B12 1000 mcgdaily because she was taking Protonix and will not absorb B12 from her food pantoprazole DR (PROTONIX) 40 mg EC tablet; Take 1 tablet (40 mg total) by mouth daily Dispense: 90tablet; Refill: 2 Iron 325 mg 3 days weekly plus vitamin-C 250 mg 3 days weekly REVIEW OF SYSTEMS: Review of Systems Constitutional: Negative for activity change, appetite change, fatigue, fever and unexpected weightchange. HENT: Negative for congestion, dental problem, hearing loss, postnasal drip, sinus pressure, sore throat and trouble swallowing. Eyes: Negative for pain, discharge, itching and visual disturbance. Respiratory: Positive for shortness of breath (dramatically improved with the new dose of Lasix from Dr. Arauz last week). Negative for cough, chest tightness and wheezing. Cardiovascular: Positive for leg swelling. Negative for chest pain and palpitations. Gastrointestinal: Negative for abdominal distention, abdominal pain, anal bleeding, blood in stool,constipation, diarrhea, nausea, rectal pain and vomiting. Endocrine: Negative for cold intolerance, heat intolerance and polyuria. Genitourinary: Negative for difficulty urinating, dysuria, flank pain, frequency, hematuria, menstrual problem, pelvic pain and vaginal discharge. Musculoskeletal: Negative for arthralgias (resolved after allopurinol prednisone combination), gaitproblem, joint swelling and myalgias. Skin: Positive for wound (multiple skin contusions with blood under the skin). Negative for color change and rash. Neurological: Negative for dizziness, weakness and headaches. Hematological: Negative for adenopathy. Does not bruise/bleed easily. Psychiatric/Behavioral: Negative for behavioral problems, dysphoric mood and sleep disturbance. Thepatient is not nervous/anxious. All other systems reviewed and are negative. VITAL SIGNS: BP 112/62 (BP Location: Right arm, Patient Position: Sitting) Pulse 97 Temp 36.3 ??C (97.3 ??F)(Temporal) Resp 20 Wt 80.7 kg (178 lb) LMP (LMP Unknown) SpO2 98% BMI 33.63 kg/m?? Body mass index is 33.63 kg/m??. Wt Readings from Last 3 Encounters: 01/11/24 80.7 kg (178 lb) 11/27/23 81.6 kg (180 lb) 10/27/23 81.6 kg (180 lb) PHYSICAL EXAMINATION: Physical Exam Vitals and nursing note reviewed. Constitutional: General: She is not in acute distress. Appearance: Normal appearance. She is well-developed. She is obese. She is not ill-appearing. HENT: Head: Normocephalic and atraumatic. Right Ear: Tympanic membrane and external ear normal. Left Ear: Tympanic membrane and external ear normal. Nose: Nose normal. No congestion or rhinorrhea. Mouth/Throat: Mouth: Mucous membranes are moist. Pharynx: Oropharynx is clear. No oropharyngeal exudate or posterior oropharyngeal erythema. Eyes: General: No scleral icterus. Extraocular Movements: Extraocular movements intact. Conjunctiva/sclera: Conjunctivae normal. Pupils: Pupils are equal, round, and reactive to light. Neck: Thyroid: No thyromegaly. Cardiovascular: Rate and Rhythm: Normal rate. Rhythm irregular. Heart sounds: Normal heart sounds. No murmur heard. No gallop. Comments: Irregular rate controlled rhythm with a holosystolic murmur left 2nd interspace not radiating to the axilla Pulmonary: Effort: Pulmonary effort is normal. Breath sounds: Normal breath sounds. No wheezing, rhonchi or rales. Abdominal: General: Bowel sounds are normal. There is no distension. Palpations: Abdomen is soft. There is no mass. Tenderness: There is no abdominal tenderness. Hernia: No hernia is present. Comments: Obese abdomen Musculoskeletal: General: Deformity (chronic atrophy of the right arm unchanged from baseline) present. No tenderness. Cervical back: Neck supple. Right lower leg: No edema. Left lower leg: No edema. Comments: No evidence of acute gouty arthritis Lymphadenopathy: Cervical: No cervical adenopathy. Skin: General: Skin is warm and dry. Findings: Bruising (Multiple areas of senile purpura) present. No erythema, lesion or rash. Neurological: Mental Status: She is alert and oriented to person, place, and time. Mental status is at baseline. Cranial Nerves: No cranial nerve deficit. Motor: No weakness or abnormal muscle tone. Coordination: Coordination normal. Gait: Gait abnormal. Psychiatric: Mood and Affect: Mood normal. Behavior: Behavior normal. Thought Content: Thought content normal. Judgment: Judgment normal. MOST RECENT LABS: Echo 06/14/2023 CONCLUSIONS: Technically difficult study with limited views. [...] regurgitation. 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: Lab on 01/04/2024 Component Date Value NT-proBNP 01/04/2024 3,933 (H) Sodium 01/04/2024 135 Potassium, pl 01/04/2024 4.2 Chloride 01/04/2024 93 (L) CO2 01/04/2024 32 Anion gap 01/04/2024 11 BUN 01/04/2024 55 (H) Creatinine 01/04/2024 1.70 (H) Glucose 01/04/2024 116 Calcium 01/04/2024 9.2 eGFR 01/04/2024 29 (L) Lab on 12/29/2023 Component Date Value Sodium 12/29/2023 132 (L) Potassium, pl 12/29/2023 3.4 Chloride 12/29/2023 88 (L) CO2 12/29/2023 33 (H) Anion gap 12/29/2023 11 BUN 12/29/2023 62 (H) Creatinine 12/29/2023 1.57 (H) Glucose 12/29/2023 101 Calcium 12/29/2023 9.9 Phosphorus, pl 12/29/2023 4.7 (H) Albumin 12/29/2023 3.9 Uric acid 12/29/2023 8.1 (H) Iron 12/29/2023 55 TIBC 12/29/2023 404 (H) Transferrin saturation 12/29/2023 14 (L) WBC 12/29/2023 10.7 (H) Hgb 12/29/2023 15.0 Hct 12/29/2023 46.7 (H) Plt 12/29/2023 370 MPV 12/29/2023 9.4 RBC 12/29/2023 5.58 (H) MCV 12/29/2023 83.7 MCH 12/29/2023 26.9 (L) MCHC 12/29/2023 32.1 (L) RDW CV 12/29/2023 15.8 (H) RDW SD 12/29/2023 47.8 NRBC abs 12/29/2023 0.00 Neutrophil abs 12/29/2023 8.6 (H) Imm gran abs 12/29/2023 0.1 Lymphocyte abs 12/29/2023 0.9 Monocyte abs 12/29/2023 0.8 Eosinophil abs 12/29/2023 0.3 Basophil abs 12/29/2023 0.1 Neutrophil pct 12/29/2023 80.6 Imm gran pct 12/29/2023 1.0 Lymphocyte pct 12/29/2023 8.4 Monocyte pct 12/29/2023 7.1 Eosinophil pct 12/29/2023 2.3 Basophil pct 12/29/2023 0.6 eGFR 12/29/2023 32 (L) Lab on 12/29/2023 Component Date Value NT-proBNP 12/29/2023 1,839 (H) Sodium 12/29/2023 132 (L) Potassium, pl 12/29/2023 3.4 Chloride 12/29/2023 88 (L) CO2 12/29/2023 32 Anion gap 12/29/2023 12 BUN 12/29/2023 60 (H) Creatinine 12/29/2023 1.60 (H) Glucose 12/29/2023 101 Calcium 12/29/2023 9.7 eGFR 12/29/2023 31 (L) Lab on 11/20/2023 Component Date Value Uric acid 11/20/2023 8.6 (H) Sodium 11/20/2023 134 (L) Potassium, pl 11/20/2023 4.2 Chloride 11/20/2023 95 (L) CO2 11/20/2023 25 Anion gap 11/20/2023 14 BUN 11/20/2023 47 (H) Creatinine 11/20/2023 1.60 (H) Glucose 11/20/2023 100 Calcium 11/20/2023 10.0 eGFR 11/20/2023 31 (L) Lab on 10/26/2023 Component Date Value NT-proBNP 10/26/2023 2,726 (H) Magnesium 10/26/2023 1.8 Sodium 10/26/2023 138 Potassium, pl 10/26/2023 4.5 Chloride 10/26/2023 97 CO2 10/26/2023 31 Anion gap 10/26/2023 10 BUN 10/26/2023 53 (H) Creatinine 10/26/2023 1.54 (H) Glucose 10/26/2023 85 Calcium 10/26/2023 10.7 (H) Bilirubin, total 10/26/2023 0.2 Protein, pl 10/26/2023 7.3 Albumin 10/26/2023 3.7 Alk phos 10/26/2023 120 ALT 10/26/2023 18 AST 10/26/2023 28 Uric acid 10/26/2023 11.5 (H) WBC 10/26/2023 10.0 (H) Hgb 10/26/2023 14.6 Hct 10/26/2023 49.3 (H) Plt 10/26/2023 400 MPV 10/26/2023 9.5 RBC 10/26/2023 5.64 (H) MCV 10/26/2023 87.4 MCH 10/26/2023 25.9 (L) MCHC 10/26/2023 29.6 (L) RDW CV 10/26/2023 17.0 (H) RDW SD 10/26/2023 52.6 (H) NRBC abs 10/26/2023 0.00 Neutrophil abs 10/26/2023 7.8 (H) Imm gran abs 10/26/2023 0.1 Lymphocyte abs 10/26/2023 1.0 Monocyte abs 10/26/2023 0.9 (H) Eosinophil abs 10/26/2023 0.2 Basophil abs 10/26/2023 0.1 Neutrophil pct 10/26/2023 77.8 Imm gran pct 10/26/2023 1.0 Lymphocyte pct 10/26/2023 10.3 Monocyte pct 10/26/2023 8.5 Eosinophil pct 10/26/2023 1.7 Basophil pct 10/26/2023 0.7 eGFR 10/26/2023 33 (L) Lab on 08/10/2023 Component Date Value Vitamin B12 08/10/2023 723 Lab on 07/31/2023 Component Date Value NT-proBNP 07/31/2023 4,735 (H) WBC 07/31/2023 9.3 Hgb 07/31/2023 10.3 (L) Hct 07/31/2023 36.0 Plt 07/31/2023 418 (H) MPV 07/31/2023 8.9 (L) RBC 07/31/2023 4.63 MCV 07/31/2023 77.8 (L) MCH 07/31/2023 22.2 (L) MCHC 07/31/2023 28.6 (L) RDW CV 07/31/2023 24.3 (H) RDW SD 07/31/2023 62.4 (H) NRBC abs 07/31/2023 0.00 Sodium 07/31/2023 133 (L) Potassium, pl 07/31/2023 4.3 Chloride 07/31/2023 95 (L) CO2 07/31/2023 28 Anion gap 07/31/2023 10 BUN 07/31/2023 24 Creatinine 07/31/2023 1.31 (H) Glucose 07/31/2023 102 Calcium 07/31/2023 9.8 Neutrophil abs 07/31/2023 7.3 (H) Imm gran abs 07/31/2023 0.2 (H) Lymphocyte abs 07/31/2023 0.9 Monocyte abs 07/31/2023 0.7 Eosinophil abs 07/31/2023 0.2 Basophil abs 07/31/2023 0.1 Neutrophil pct 07/31/2023 77.9 Imm gran pct 07/31/2023 2.4 Lymphocyte pct 07/31/2023 9.2 Monocyte pct 07/31/2023 7.4 Eosinophil pct 07/31/2023 2.3 Basophil pct 07/31/2023 0.8 eGFR 07/31/2023 40 Admission on 07/22/2023, Discharged on 07/25/2023 Component Date Value Sodium 07/22/2023 139 Potassium, pl 07/22/2023 4.5 Chloride 07/22/2023 99 CO2 07/22/2023 28 Anion gap 07/22/2023 12 BUN 07/22/2023 33 (H) Creatinine 07/22/2023 1.37 (H) Glucose 07/22/2023 120 Calcium 07/22/2023 9.2 Bilirubin, total 07/22/2023 0.4 Protein, pl 07/22/2023 6.9 Albumin 07/22/2023 3.7 Alk phos 07/22/2023 156 (H) ALT 07/22/2023 17 AST 07/22/2023 18 WBC 07/22/2023 8.9 Hgb 07/22/2023 8.2 (L) Hct 07/22/2023 29.2 (L) Plt 07/22/2023 378 MPV 07/22/2023 9.4 RBC 07/22/2023 3.91 MCV 07/22/2023 74.7 (L) MCH 07/22/2023 21.0 (L) MCHC 07/22/2023 28.1 (L) RDW CV 07/22/2023 17.3 (H) RDW SD 07/22/2023 46.5 NRBC abs 07/22/2023 0.00 Trop T hs 07/22/2023 43 (H) aPTT 07/22/2023 40 (H) NT-proBNP 07/22/2023 6,674 (H) Neutrophil abs 07/22/2023 7.0 (H) Imm gran abs 07/22/2023 0.1 Lymphocyte abs 07/22/2023 0.8 Monocyte abs 07/22/2023 0.6 Eosinophil abs 07/22/2023 0.4 Basophil abs 07/22/2023 0.0 Neutrophil pct 07/22/2023 78.9 Imm gran pct 07/22/2023 1.0 Lymphocyte pct 07/22/2023 8.8 Monocyte pct 07/22/2023 6.6 Eosinophil pct 07/22/2023 4.2 Basophil pct 07/22/2023 0.5 Trop T hs 07/22/2023 20 (H) Trop T hs delta 07/22/2023 -23 (Critical) Trop T hs interp 07/22/2023 Significant (Critical) Trop T hs 07/22/2023 21 (H) Trop T hs delta 07/22/2023 -22 (Critical) Trop T hs interp 07/22/2023 Significant (Critical) Trop T hs 07/22/2023 26 (H) Trop T hs delta 07/22/2023 See Comment Trop T hs pct delta 07/22/2023 See Comment Trop T hs interp 07/22/2023 See Comment eGFR 07/22/2023 38 Cholesterol 07/22/2023 128 Triglycerides 07/22/2023 96 HDL 07/22/2023 45 LDL, calculated 07/22/2023 64 Non-HDL Cholesterol 07/22/2023 83 Chol/HDL ratio 07/22/2023 3 WBC 07/23/2023 6.5 Hgb 07/23/2023 7.6 (L) Hct 07/23/2023 26.6 (L) Plt 07/23/2023 334 MPV 07/23/2023 9.4 RBC 07/23/2023 3.62 (L) MCV 07/23/2023 73.5 (L) MCH 07/23/2023 21.0 (L) MCHC 07/23/2023 28.6 (L) RDW CV 07/23/2023 17.4 (H) RDW SD 07/23/2023 46.1 NRBC abs 07/23/2023 0.00 Sodium 07/23/2023 139 Potassium, pl 07/23/2023 3.5 Chloride 07/23/2023 98 CO2 07/23/2023 30 Anion gap 07/23/2023 11 BUN 07/23/2023 36 (H) Creatinine 07/23/2023 1.46 (H) Glucose 07/23/2023 93 Calcium 07/23/2023 9.2 Neutrophil abs 07/23/2023 4.6 Imm gran abs 07/23/2023 0.1 Lymphocyte abs 07/23/2023 0.9 Monocyte abs 07/23/2023 0.7 Eosinophil abs 07/23/2023 0.4 Basophil abs 07/23/2023 0.1 Neutrophil pct 07/23/2023 69.5 Imm gran pct 07/23/2023 0.8 Lymphocyte pct 07/23/2023 13.2 Monocyte pct 07/23/2023 10.0 Eosinophil pct 07/23/2023 5.7 Basophil pct 07/23/2023 0.8 eGFR 07/23/2023 35 Magnesium 07/24/2023 2.1 WBC 07/24/2023 7.8 Hgb 07/24/2023 8.2 (L) Hct 07/24/2023 28.5 (L) Plt 07/24/2023 393 MPV 07/24/2023 9.2 RBC 07/24/2023 3.86 (L) MCV 07/24/2023 73.8 (L) MCH 07/24/2023 21.2 (L) MCHC 07/24/2023 28.8 (L) RDW CV 07/24/2023 17.4 (H) RDW SD 07/24/2023 46.5 NRBC abs 07/24/2023 0.00 Neutrophil abs 07/24/2023 5.8 Imm gran abs 07/24/2023 0.1 Lymphocyte abs 07/24/2023 0.7 (L) Monocyte abs 07/24/2023 0.7 Eosinophil abs 07/24/2023 0.3 Basophil abs 07/24/2023 0.1 Neutrophil pct 07/24/2023 75.3 Imm gran pct 07/24/2023 1.4 Lymphocyte pct 07/24/2023 9.5 Monocyte pct 07/24/2023 9.5 Eosinophil pct 07/24/2023 3.7 Basophil pct 07/24/2023 0.6 Lab on 07/18/2023 Component Date Value Vitamin D 25-OH 07/18/2023 59 Thyroid Stimulating Horm* 07/18/2023 3.48 Free T4 07/18/2023 1.30 MMA 07/18/2023 0.60 (H) Iron 07/18/2023 23 (L) TIBC 07/18/2023 399 Transferrin saturation 07/18/2023 6 (L) WBC 07/18/2023 7.8 Hgb 07/18/2023 8.3 (L) Hct 07/18/2023 28.4 (L) Plt 07/18/2023 317 MPV 07/18/2023 9.2 RBC 07/18/2023 3.84 (L) MCV 07/18/2023 74.0 (L) MCH 07/18/2023 21.6 (L) MCHC 07/18/2023 29.2 (L) RDW CV 07/18/2023 17.3 (H) RDW SD 07/18/2023 46.1 NRBC abs 07/18/2023 0.00 NT-proBNP 07/18/2023 6,289 (H) Sodium 07/18/2023 136 Potassium, pl 07/18/2023 3.5 Chloride 07/18/2023 98 CO2 07/18/2023 29 Anion gap 07/18/2023 9 BUN 07/18/2023 30 (H) Creatinine 07/18/2023 1.29 (H) Glucose 07/18/2023 106 Calcium 07/18/2023 9.3 Neutrophil abs 07/18/2023 6.2 Imm gran abs 07/18/2023 0.1 Lymphocyte abs 07/18/2023 0.6 (L) Monocyte abs 07/18/2023 0.6 Eosinophil abs 07/18/2023 0.3 Basophil abs 07/18/2023 0.0 Neutrophil pct 07/18/2023 79.2 Imm gran pct 07/18/2023 0.8 Lymphocyte pct 07/18/2023 7.7 Monocyte pct 07/18/2023 7.6 Eosinophil pct 07/18/2023 4.2 Basophil pct 07/18/2023 0.5 eGFR 07/18/2023 41 Any Patient specific educational requests are printed on letterhead associated with this visit Tess Benedict personal health goals were negotiated and agreed upon today. Assessment and plan for new and ongoing medical problems were reviewed and agreed upon. Risk, benefit and side effects of medications were reviewed and sent eRx to the patient's requestedpharmacies. All current lab work was reviewed and discussed. Appropriate labs and referrals planned for the follow-up visit were reviewed, discussed and completed. The discussion is summarized in this Assessment and Plan shared with her and is available on the AVS. Pepper Morgan MD == MEDICATION AND LABORATORY LINKING OF ALL WERE COMPLETED TODAY FOR THE CODE REVIEW TEAM == ICD-10-CM 1. Gouty arthritis of foot M10.9 allopurinoL (ZYLOPRIM) 100 mg tablet 2. Acute on chronic heart failure with preserved ejection fraction (CMS/HCC) ([facility]) I50.33 Renal function panel 3. Paroxysmal atrial fibrillation (CMS/HCC) ([facility]) I48.0 4. Contusion of skin T14.8XXA mupirocin (BACTROBAN) 2 % ointment 5. History of malignant melanoma Z85.820 6. Chronic GERD K21.[address] (PROTONIX) 40 mg EC tablet Uric acid 7. Esophageal dysphagia R13.19 8. Need for hepatitis B screening test Z11.59 Hepatitis B core antibody, total Blood Hepatitis B surface antibody (immune status) Blood Hepatitis B Surface Antigen Blood 9. Medication monitoring encounter Z51.81 Uric acid 10. CKD stage 3b, GFR 30-44 ml/min (HCC) N18.32 Renal function panel Magnesium 11. Prediabetes R73.03 Hemoglobin A1c Albumin Creatinine Ratio, Urine 12. Bleeding hemorrhoids K64.9 ferrous fumarate 325 mg (106 mg iron) tablet 13. Acute lower GI bleeding K92.2 ferrous fumarate 325 mg (106 mg iron) tablet 14. Iron deficiency anemia due to chronic blood loss D50.0 ferrous fumarate 325 mg (106 mg iron) tablet documented in this encounter Miscellaneous Notes * Addendum Note - Albert Romero - 01/11/2024 10:15 AM CDTAddended by: ALBERT ROMERO on: 01/25/2024 10:50 AM Modules accepted: Orders documented in this [...] documented as of this encounter Results * Magnesium (01/25/2024 10:56 AM CDT) Magnesium 2.0 1.4 - 2.5 mg/dL Blood 01/25/2024 10:5 6 AM CDT 01/25/2024 11:27 AM CDT us Pepper Morgan MD LAB BLOOD ORDERABLES Final Result [facility] ([place]) 1 [facility] [place] [address] * (ABNORMAL) Renal function panel (01/25/2024 10:56 AM CDT) Sodium 132(L) 135 - 145 mmol/L Potassium, pl 4.1 3.3 - 4.9 mmol/L [facility] ([place]) Chloride 90(L) 97 - 110 mmol/L [facility] CO2 28 22 - 32 mmol/L [facility] ([place]) Anion gap 14 2 - 15 mmol/L [facility] ([place]) BUN 58(H) 6 - 25 mg/dL [facility] ([place]) Creatinine 1.48(H) 0.60 - 1.10 mg/dL [facility] ([place]) Glucose 115 70 - 199 mg/dL [facility] ([place]) [...] 2022. Calcium 9.9 8.5 - 10.3 mg/dL [facility] ([place]) Phosphorus, pl 3.8 2.3 - 4.5 mg/dL [facility] ([place]) Albumin 3.8 3.5 - 5.0 g/dL [facility] ([place]) Blood 01/25/2024 10:5 6 AM CDT 01/25/2024 11:27 AM CDT us Pepper Morgan MD LAB BLOOD ORDERABLES Final Result Performing Organization Address City/[facility] Co de Phone Number [facility] ([place]) 1 [place] [address] * (ABNORMAL) Hemoglobin A1c (01/25/2024 10:56 AM CDT) Hgb A1C 5.8(H) 4.0 - 5.6 % Estimated Average Glucose 120 mg/dL [facility] ([place]) Comment: The ADA recommends reporting an estimated Average Glucose (eAG) with all Hemoglobin A1c results using the equation derived from a study of 507 normal and diabetic adults. ??Minority populations were underrepresented and children were not included. ?? (Diabetes Care 31:5695-3144, 2008). ??The eAG is not equivalent to a fasting glucose. Blood 01/25/2024 10:5 6 AM CDT 01/25/2024 11:27 AM CDT us Pepper Morgan MD LAB BLOOD ORDERABLES Final Result Performing Organization Address [facility] Co de Phone Number [facility] ([place]) [address] [place] [address] * Uric acid (01/25/2024 10:56 AM CDT) Uric acid 6.4 2.5 - 7.0 mg/dL Blood 01/25/2024 10:5 6 AM CDT 01/25/2024 11:27 AM CDT us Pepper Morgan MD LAB BLOOD ORDERABLES Final Result Performing Organization Address City/[facility] Co de Phone Number [facility] ([place]) 1 [facility] [place] [address] * Albumin Creatinine Ratio, Urine (01/25/2024 10:50 AM CDT) Albumin Ur <12.0 mg/L Comment: Interpretive Data No reference range established. Current interpretive data was last revised 2018. Testing performed by: [facility], [address] [place] [address]., [address] Creatinine Ur 11.1 mg/dL [facility] ([place]) Comment: Interpretive Data No reference range established. Current interpretive data was last revised 2018. Testing performed by: [address], [address] Albumin Creatinine Ratio, Ur See Comment 1 - 29 [facility] ([place]) Comment: Unable to calculate Testing performed by: [address], [address] Urine 01/25/2024 10:5 0 AM CDT 01/25/2024 1:57 PM CDT us Pepper Mogran MD LAB URINE ORDERABLES Final Result [facility] ([place]) 1 [facility] Department [place] [address] documented in this encounter Visit Diagnoses Diagnosis Gouty arthritis of foot- Primary Acute on chronic heart failure with preserved ejection fraction (CMS/HCC) (HCC) Paroxysmal atrial fibrillation (CMS/HCC) (HCC) Atrial fibrillation Contusion of skin History of malignant melanoma Personal history of malignant melanoma of skin Chronic GERD Esophageal dysphagia Dysphagia, pharyngoesophageal phase Need for hepatitis B screening test Medication monitoring encounter Encounter for therapeutic drug monitoring CKD stage 3b, GFR 30-44 ml/min (HCC) Prediabetes Other abnormal glucose Bleeding hemorrhoids Unspecified hemorrhoids with other complication Acute lower GI bleeding Unspecified, hemorrhage of gastrointestinal tract Iron deficiency anemia due to chronic blood loss Iron deficiency anemia secondary to blood loss (chronic) documented in this encounter Discontinued Medications Medication Sig Discontinue Reason Start Date End Da te allopurinoL (ZYLOPRIM) 100 mg tablet Take 1 tablet (100 mg total) by mouth daily Reorder 12/13/2023 01/11/2024 febuxostat (ULORIC) 40 mg tabletIndications:Gouty arthritis of foot Take 1 tablet (40 mg total) by mouth daily 12/12/2023 01/11/[address] (PROTONIX) 40 mg EC tabletIndications:Treatm ent of Non-Bleeding Gastric Disorder Take 1 tablet (40 mg total) by mouth daily Reorder 07/13/2023 01/11/2024 documented as of this encounter Care Teams Protection Agent Relationship Specialty Start Date End Date Pepper Morgan MD PCP - General 09/16/16 Hank Garibay MD 4 [facility] [address] WARNER [place] [facility] [address] [place] [address] Surgeon Orthopedic Surgery 03/27/17 Jacky Murry MD 4 [facility] [address] WARNER [place] [facility] [address] [place] [address] Ophthalmology 03/27/17 Puma Mckenzie MD 4 [facility] [address] WARNER [place] [facility] [address] [place] [address] Surgeon Orthopedic Surgery 07/11/19 Neha Jackson, PT Physical Therapist Physical Therapy 12/01/21 Stalin Arauz MD [address] [place] [address] [address] [place] [address] Consulting Physician Cardiology 12/08/22 Tiffany Rojas PA 4 [facility] [address] [place] [address] Gastroenterology 12/30/22 Klaus Deshpande MD 4 [facility] [address] [place] [address] Consulting Physician Neurology 06/13/23 Andrea Waddell, XU [address] [place] [address] [address] [place] [address] Edging Supervisor 01/11/24 01/14/24 documented as of this encounter
--- OUTSIDE RECORDS SUMMARY | 2024-06-18 18:48 | XMS_ITS | Encounter Summary ---
Author Organization [facility] Healthcare Address [address] [place] [address] Care Team Providers Care Supervisor Cab Name Role Phone Pepper Morgan MD Primary Care Provider +- [phone] Hank Garibay MD Unavailable [phone] Jacky Murry MD Unavailable [phone] Puma Mckenzie MD Unavailable [phone] Neha Jackson PT Unavailable Unavailable Stalin Arauz MD Unavailable [phone] Tiffany Rojas Unavailable [phone] Klaus Deshpande MD Unavailable [phone] Encounter Details Date Type Department Care Team (Late st Contact Info) Description 01/28/2024 Orders Only [facility] [address] [facility] [address] [place] [address] Klaus Deshpande MD [address] [facility] [address] [place] [address] Restless legs syndrome Social History Tobacco Use Types Packs/Day Years Used Date Smoking Tobacco: Former Cigarettes 2 30 1 952 - 1982 Smokeless Tobacco: Never Alcohol Use Standard Drinks/Week Comments Not Currently 0 (1 standard drink = 0.6 oz pur e alcohol) [facility] Utilities Answer Date Recorded In [...] often do you attend chur ch or mu-ism services? Never 07/24/2023 Do you belong to any clubs o r organizations such as sabianist groups, unions, fraternal or athletic groups, or [...] place to sleep or slept in a nursing home (including now)? No 07/24/2023 Personal Safety Answer Date Recorded Have you ever been in or are you currently in a harmful physical or emotional relationship or is someone making you feel afraid or unsafe? 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 Increased pramipexole to 0.75 mg b.i.d. documented in this encounter Plan of Treatment Not on file documented as of this encounter Goals Goal Patient Goal Type Associated Problems Recent Progress Patient-Stated? Author [facility] Improving( 3:34 PM CDT) No Domitila Garay RN Note: Patient will establish a comfort-function goal and identify the pain level that will allow the patient to perform desired activities and achieve an acceptable quality of life. documented as of this encounter Visit Diagnoses Diagnosis Restless legs syndrome Restless legs syndrome (RLS) documented in this encounter Discontinued Medications Medication Sig Discontinue Reason Start Date End Da te pramipexole (MIRAPEX) 0.5 mg tabletIndications:Restle ss legs syndrome TAKE 1 TABLET BY MOUTH TWICE A DAY Reorder 09/20/2023 01/28/2024 documented as of this encounter Care Teams Supervisor Cab Relationship Specialty Start Date End Date Pepper Morgan MD PCP - General 09/16/16 Hank Garibay MD [address] [facility] [address] WARNER [place] [address] [place] [address] Surgeon Orthopedic Surgery 03/27/17 Jacky Murry MD [address] [facility] [address] WARNER [place] [address] [place] [address] Ophthalmology 03/27/17 Puma Mckenzie MD [address] [facility] [address] [place] [address] Surgeon Orthopedic Surgery 07/11/19 Neha Jackson, PT Physical Therapist Physical Therapy 12/01/21 Stalin Arauz MD [address] [facility] [address] [place] [address] Consulting Physician Cardiology 12/08/22 Tiffany Rojas PA [address] [facility] [address] [place] [address] Gastroenterology 12/30/22 Klaus Deshpande MD [address] [facility] [address] [address] [place] [address] Consulting Physician Neurology 06/13/23 documented as of this encounter
--- OUTSIDE RECORDS SUMMARY | 2024-06-18 18:48 | XMS_ITS | Encounter Summary ---
Author Organization [facility] Address [address] [place] [address] Care Team Providers Care Senior Trainer Name Role Phone Pepper Morgan MD Primary Care Provider +- [phone] Hank Garibay MD Unavailable [phone] Jacky Murry MD Unavailable [phone] Puma Mckenzie MD Unavailable [phone] Neha Jackson PT Unavailable Unavailable Stalin Arauz MD Unavailable [phone] Tiffany Rojas Unavailable [phone] Klaus Deshpande MD Unavailable [phone] Reason for Visit * Reason Onset Date Comments covid and flu vaccinations 03/19/2024 Encounter Details Date Type Department Care Team (Late st Contact Info) Description 03/19/2024 Telephone [facility] [address] [place] [address] Pepper Morgan MD [address] [place] [address] covid and flu vaccinations Social History Tobacco Use Types Packs/Day Years Used Date Smoking Tobacco: Former Cigarettes 2 30 1 952 - 1981 Smokeless Tobacco: Never Alcohol Use Standard Drinks/Week Comments Not Currently 0 (1 standard drink = 0.6 oz pur e alcohol) [facility] Utilities Answer Date Recorded In the [...] often do you attend chur ch or baptist services? 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 Patient states it has been almost two weeks since she had covid. Informed her she needs to wait 90 days before getting the covid vaccination. Checked with [facility] and it is okay to get Flu vaccination at this time. documented in this encounter Plan of Treatment [...] on filedocumented in this encounter Care Teams Senior Trainer Relationship Specialty Start Date End Date Pepper Morgan MD PCP - General 09/16/16 Hank Garibay MD [address] [facility] [address] WARNER [place] [address] [place] [address] Surgeon Orthopedic Surgery 03/27/17 Jacky Murry MD [address] [facility] [address] WARNER [place] [facility] [address] [place] [address] Ophthalmology 03/27/17 Puma Mckenzie MD [address] [facility] [address] WARNER [address] [place] [address] Surgeon Orthopedic Surgery 07/11/19 Neha Jackson, PT Physical Therapist Physical Therapy 12/01/21 Stalin Arauz MD [address] [facility] [address] [place] [address] Consulting Physician Cardiology 12/08/22 Tiffany Rojas PA [address] [facility] [address] [place] [address] Gastroenterology 12/30/22 Klaus Deshpande MD [address] [facility] [address] [place] [address] Consulting Physician Neurology 06/13/23 documented as of this encounter
--- OUTSIDE RECORDS SUMMARY | 2024-06-18 18:48 | XMS_ITS | Encounter Summary ---
Author Organization [facility] Healthcare Address [address] [place] [address] Care Team Providers Care Tool Room Lathe Operator Name Role Phone Pepper Morgan MD Primary Care Provider + [phone] Hank Garibay MD Unavailable [phone] Jacky Murry MD Unavailable [phone] Puma Mckenzie MD Unavailable [phone] Neha Jackson PT Unavailable Unavailable Stalin Arauz MD Unavailable [phone] Tiffany Rojas Unavailable [phone] Klaus Deshpande MD Unavailable [phone] Reason for Visit * Reason Onset Date Comments MARIO appointment 03/18/2024 Encounter Details Date Type Department Care Team (Late st Contact Info) Description 03/18/[address] [facility] [place] [facility] [address] [place] [address] Phylicia Mota RN [address] [place] [address] [place] [address] MARIO appointment Social History Tobacco Use Types Packs/Day Years Used Date Smoking Tobacco: Former Cigarettes 1 952 - 1981 Smokeless Tobacco: Never Alcohol Use Standard Drinks/Week Comments Not Currently 0 (1 standard drink = 0.6 oz pur e alcohol) [facility] Utilities Answer Date Recorded In the [...] often do you attend chur ch or holiness services? Never 07/24/2023 Do you belong to [...] place to sleep or slept in a [facility] (including now)? No 07/24/2023 Personal Safety Answer Date Recorded Have you ever been in or are you currently in a harmful physical or emotional relationship or is someone making you feel afraid or unsafe? 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 Only med change was they removed potasium. Pt stated she will just keep her annual and call if she needs anything else. * Telephone Encounter - Phylicia Mota RN - 03/18/2024 9:26 AM CDT This patient was recently admitted at from 03/15/24 to 03/16/24 for CHF. Please contact patient to schedule MARIO appointment. Thank you. Phylicia Mota RN, [facility] [employer] Cutter [phone] documented in this encounter Plan of Treatment Not on file documented as of this encounter Goals Goal Patient Goal Type Associated Problems Recent Progress Patient-Stated? Author [facility] Improving( 3:34 PM CDT) Domitila Gastno, RN Note: Patient will establish a comfort-function goal and identify the pain level that will allow the patient to perform desired activities and achieve an acceptable quality of life. documented as of this encounter Visit Diagnoses Not on filedocumented in this encounter Care Teams Tool Room Lathe Operator Relationship Specialty Start Date End Date Pepper Morgan MD PCP - General 09/16/16 Hank Garibay MD [address] [facility] [address] [place] [address] Surgeon Orthopedic Surgery 03/27/17 Jacky Murry MD [address] [facility] [address] [place] [address] Ophthalmology 03/27/17 Puma Mckenzie MD [address] [facility] [address] [place] [address] Surgeon Orthopedic Surgery 07/11/19 Neha Jackson, PT Physical Therapist Physical Therapy 12/01/21 Stalin Arauz MD [address] [facility] [address] [place] [address] Consulting Physician Cardiology 12/08/22 Tiffany Rojas PA [address] [facility] [address] [place] [address] Gastroenterology 12/30/22 Klaus Deshpande MD [address] [facility] [address] [place] [address] Consulting Physician Neurology 06/13/23 documented as of this encounter
--- OUTSIDE RECORDS SUMMARY | 2024-06-18 18:48 | XMS_ITS | Encounter Summary ---
Author Organization [facility] Address [address] [place] [address] Care Team Providers Care Program Support Clerk Name Role Phone Pepper Morgan MD Primary Care Provider + [phone] Hank Garibay MD Unavailable [phone] Jacky Murry MD Unavailable [phone] Puma Mckenzie MD Unavailable [phone] Neha Jackson PT Unavailable Unavailable Stalin Arauz MD Unavailable [phone] Tiffany Rojas Unavailable [phone] Klaus Deshpande MD Unavailable [phone] Encounter Details Date Type Department Care Team (Late st Contact Info) Description 03/05/2024 Telephone [place] Die Engraving Supervisor at [address] [place] [id number] Hai Dalton MA Social History Tobacco Use Types Packs/Day Years Used Date Smoking Tobacco: Former Cigarettes 2 30 1 952 - 1982 Smokeless Tobacco: Never Alcohol Use Standard Drinks/Week Comments Not Currently 0 (1 standard drink = 0.6 oz pur e alcohol) [facility] Utilities Answer Date Recorded In the past 12 months has [employer], gas, oil, or water company threatened to [...] often do you attend chur ch or jehovah's witness services? 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 She states she is really sick with having covid as well. Please advise Patient called back this morning and now states her weight is down 2lbs. * Telephone Encounter - Hai Dalton MA - 03/07/2024 2:26 PM CDT Patient advised * Telephone Encounter - Hai Dalton MA - 03/07/2024 1:14 PM CDT Patient called stating that she can not go get labs done tomorrow. She tested positive today for Covid. She has only lost one lb since the increase in medications. Please advise * Telephone Encounter - Hai Dalton MA - 03/05/2024 9:23 AM CDT Patients daughter advised * Telephone Encounter - Hai Dalton MA - 03/05/2024 8:48 AM CDT Patient called stating her weight is up 5lbs and she is SOB. Per patients daughter (who takes care of her meds) Tess is taking: Lasix 80mg BID, metolazone 5mg every other day and spironolactone 25mg every day. Please advise. documented in this encounter Plan of Treatment [...] on filedocumented in this encounter Care Teams Program Support Clerk Relationship Specialty Start Date End Date Pepper Morgan MD PCP - General 09/16/16 Hank Garibay MD [address] [place] [address] [place] [address] Surgeon Orthopedic Surgery 03/27/17 Jacky Murry MD [address] [facility] [address] [place] [address] Ophthalmology 03/27/17 Puma Mckenzie MD 4 [facility] [address] [place] [address] Surgeon Orthopedic Surgery 07/11/19 Neha Jackson, PT Physical Therapist Physical Therapy 12/01/21 Stalin Arauz MD 2 [facility] [address] [place] [address] Consulting Physician Cardiology 12/08/22 Tiffany Rojas PA 4 [facility] [address] [place] [address] Gastroenterology 12/30/22 Klaus Deshpande MD 4 [facility] [address] [place] [address] Consulting Physician Neurology 06/13/23 documented as of this encounter
--- OUTSIDE RECORDS SUMMARY | 2024-06-18 18:48 | XMS_ITS | Encounter Summary ---
Author Organization [facility] Address [address] [place] [address] Care Team Providers Care Ship'S Surveyor Name Role Phone Pepper Morgan MD Primary Care Provider + [phone] Hank Garibay MD Unavailable [phone] Jacky Murry MD Unavailable [phone] Puma Mckenzie MD Unavailable [phone] Neha Jackson PT Unavailable Unavailable Stalin Matt MD Unavailable [phone] Tiffany Rojas Unavailable [phone] Klaus Deshpande MD Unavailable [phone] Reason for Referral * Diagnostic Imaging (Routine) - Closed Specialty Diagnoses / Procedures Referred By Contac t Referred To Contact Diagnoses Peripheral arterial disease (HCC) Procedures [facility] Stalin Matt MD [address] [place] [address] [address] Phone: tel: fax: [facility] [address] [place] [id number] Referral ID Status Reason Start Date Expiration Date Visits Re quested Visits Authorized [id number] Closed 01/15/2024 02/13/2025 1 1 Encounter Details Date Type Department Care Team (Late st Contact Info) Description 01/15/2024 Orders Only [place] Chief Medical Technologist at [address] [place] [address] Stalin Matt MD [address] [place] [address] [address] [place] [address] Peripheral arterial disease (HCC) (Primary Dx) Social History Tobacco Use [...] often do you attend chur ch or tenriism services? 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 : 1935 (88y 2m) ??Gender: F Study Date: 02-22-2024 03:38:00 PM Customer Success Specialist: Saranya Provider: STALIN MATT Quality: Adequate Ref Provider: STALIN MATT ?? PROCEDURES: Arterial Report: A bilateral extremities ankle/brachial index was performed. ?? INDICATIONS: I73.9 Peripheral vascular disease, unspecified. ?? CONCLUSIONS: 1. Moderate to severe arterial insufficiency at rest in both lower extremities with an ankle-brachial index of 0.60 on the right 0.63 on the left. 2. Monophasic to biphasic waveform at the ankle bilaterally. 3. The results are essentially unchanged when compared to prior study in August 2023. ?? FINDINGS: ?? MEASUREMENTS: Right ? Value ? Left ? Value Rt Brachial Pressure ?116 mmHg ?Lt Ankle Pressure ?66 mmHg Rt Ankle Pressure ? 69 mmHg ? Lt Dorsalis Pedis ?73 mmHg Rt Dorsalis Pedis ? 70 mmHg ? Lt Toe Pressure ?38 mmHg Rt Toe Pressure ? 49 mmHg Electronically Signed By: Stalin Matt MD 2024-02-22 17:07:19 CDT Procedure Note Stalin Matt MD - 02/22/[address] [place] [address] Ankle Brachial Index Report Patient Name: TESS KOO I : 1935 (88y 2m) Gender: F Study Date: 02-22-2024 03:38:00 PM Customer Success Specialist: Order Provider: STALIN MATT Quality: Adequate Ref Provider: STALIN MATT PROCEDURES: Arterial Report: A bilateral extremities ankle/brachial index wasperformed. INDICATIONS: I73.9 Peripheral vascular disease, unspecified. CONCLUSIONS: 1. Moderate to severe arterial insufficiency at rest in both lowerextremities with an ankle-brachial index of 0.60 on the right 0.63 on the left. 2. Monophasic to biphasic waveform at the ankle bilaterally. 3. The results are essentially unchanged when compared to prior study [facility] 2023. FINDINGS: MEASUREMENTS: Right Value Left Value Rt Brachial Pressure 116 mmHg Lt Ankle Pressure 66 mmHg Rt Ankle Pressure 69 mmHg Lt Dorsalis Pedis 73 mmHg Rt Dorsalis Pedis 70 mmHg Lt Toe Pressure 38 mmHg Rt Toe Pressure 49mmHg Electronically Signed By: Stalin Matt MD 2024-02-22 17:07:19 CDT Stalin Matt MD IMG US PROCEDURES Final Result documented in this encounter Visit Diagnoses Diagnosis Peripheral arterial disease (HCC)- Primary Unspecified peripheral vascular disease Peripheral arterial disease (HCC) Unspecified peripheral vascular disease documented in this encounter Care Teams Ship'S Surveyor Relationship Specialty Start Date End Date Pepper Morgan MD PCP - General 09/16/16 Hank Garibay MD [address] [facility] [address] [place] [address] Surgeon Orthopedic Surgery 03/27/17 Jacky Murry MD [address] [facility] [address] [place] [address] Ophthalmology 03/27/17 Puma Mckenzie MD [address] [facility] [address] [place] [address] Surgeon Orthopedic Surgery 07/11/19 Neha Jackson, PT Physical Therapist Physical Therapy 12/01/21 Stalin Matt MD [address] [facility] [address] [place] [address] Consulting Physician Cardiology 12/08/22 Tiffany Rojas, PA [address] [facility] [address] [place] [address] Gastroenterology 12/30/22 Klaus Deshpande MD NPI: [id number] [place] [address] [address] [place] [address] Consulting Physician Neurology 06/13/23 documented as of this encounter
--- OUTSIDE RECORDS SUMMARY | 2024-06-18 18:48 | XMS_ITS | Encounter Summary ---
Author Organization [facility] Healthcare Address [address] [place] [address] Care Team Providers Care Disc Sander Name Role Phone Pepper Morgan MD Primary Care Provider + [phone] Hank Garibay MD Unavailable [phone] Jacky Murry MD Unavailable [phone] Puma Mckenzie MD Unavailable [phone] Neha Jackson PT Unavailable Unavailable Stalin Arauz MD Unavailable [phone] Tiffany Rojas Unavailable [phone] Klaus Deshpande MD Unavailable [phone] Encounter Details Date Type Department Care Team (Late st Contact Info) Description 03/07/2024 Telephone [place] Layout Artist at [address] [place] [id number] Hai Dalton MA Social History Tobacco Use Types Packs/Day Years Used Date Smoking Tobacco: Former Cigarettes 2 30 1 952 - 1982 Smokeless Tobacco: Never Alcohol Use Standard Drinks/Week Comments Not Currently 0 (1 standard drink = 0.6 oz pur e alcohol) [facility] Utilities Answer Date Recorded In the past 12 months has [employer], gas, oil, or water company threatened to [...] any clubs o r organizations such as anglican groups, unions, fraternal or athletic groups, or [...] on file 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 Verbal orders per [facility] as follows: (1.) D/C Xarelto. (2.) Start Renal Dose Paxlovid tomorrow. (3.) Pt to call this office when she completes the Paxlovid & [facility] is going to start her on Eliquis 2.5 mg BID or Eliquis 5 mg take 1/2 tablet po BID because Eliquis is a safer drug than Xarelto due to pt age & BEERS criteria. Informed pt [id number] of [facility] orders. Pt did voice understanding. However, pt states she is not goingoff of Xarelto unless Dr Arauz says it is ok. Pt states she feels ok right now anyway. To Dr Arauz - Please advise if ok for pt to stop Xarelto; take Renal Dose Paxlovid; then start Eliquis 2.5 mg BID after finished with Paxlovid. documented in this encounter Plan of Treatment [...] on filedocumented in this encounter Care Teams Disc Sander Relationship Specialty Start Date End Date Pepper Morgan MD PCP - General 09/16/16 Hank Garibay MD [address] [facility] [address] [place] [address] Surgeon Orthopedic Surgery 03/27/17 Jacky Murry MD [address] [facility] [address] [place] [address] Ophthalmology 03/27/17 Puma Mckenzie MD [address] [facility] [address] [place] [address] Surgeon Orthopedic Surgery 07/11/19 Neha Jackson, PT Physical Therapist Physical Therapy 12/01/21 Stalin Arauz MD [address] [facility] [address] [place] [address] Consulting Physician Cardiology 12/08/22 Tiffany Rojas PA [address] [facility] [address] [place] [address] Gastroenterology 12/30/22 Klaus Deshpande MD [address] [facility] [address] [place] [address] Consulting Physician Neurology 06/13/23 documented as of this encounter
--- OUTSIDE RECORDS SUMMARY | 2024-06-18 18:48 | XMS_ITS | Encounter Summary ---
Author Organization [facility] Healthcare Address [address] [place] [address] Care Team Providers Care Advanced Practice Registered Nurse Name Role Phone Pepper Morgan MD Primary Care Provider + [phone] Hank Garibay MD Unavailable [phone] Jacky Murry MD Unavailable [phone] uPma Mckenzie MD Unavailable [phone] Neha Jackson PT Unavailable Unavailable Stalin Arauz MD Unavailable [phone] Tiffany Rojas Unavailable [phone] Klaus Deshpande MD Unavailable [phone] Reason for Referral * Procedure (Routine) - Authorized Specialty Diagnoses / Procedures Referred By Contac t Referred To Contact Diagnoses Osteoarthritis of right glenohumeral joint Complete tear of right rotator cuff, unspecified whether traumatic Procedures Large Joint (Hip, Knee, Shoulder) Injection: R glenohumeral Jadyn Hobson PA [address] [place] [address] [place] [address] Phone: tel: fax: [facility] Referral ID Status Reason Start Date Expiration Date V isits Requested Visits Authorized [id number] Authorized 01/29/2024 02/27/2025 1 1 Reason for Visit * Reason Comments Follow-up Encounter Details Date Type Department Care Team (Late st Contact Info) Description 01/29/2024 1:15 PM CDT Office Visit [facility] Orthopedics and Sports Medicine [address] [facility] [address] [place] [phone] Jadyn Hobson PA 4 [facility] [address] [place] [address] Osteoarthritis of right glenohumeral joint (Primary Dx); Complete tear of right rotator cuff, unspecified whether traumatic Social History Tobacco Use Types Packs/Day Years Used Date Smoking Tobacco: Former Cigarettes 2 30 1 - 1981 Smokeless Tobacco: Never Alcohol Use Standard Drinks/Week Comments Not Currently 0 (1 standard drink = 0.6 oz pur e alcohol) [facility] Utilities Answer Date Recorded In the past 12 months has [employer], gas, oil, or water [employer] threatened to shut off services in your [...] week 07/24/2023 How often do you attend [facility] or hinduism services? 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 Gender Identity Not on file Sexual Orientation Not on file Occupation Industry Job Start Date Job End Date retired Not on file Not on file Not on file documented as of this encounter Last Filed Vital Signs Vital Sign Reading Time Taken Comments Blood Pressure 114/76 01/29/2024 1:14 PM CDT Pulse 98 01/29/2024 1:14 PM CDT Temperature - - Respiratory Rate - - Oxygen Saturation - - Inhaled Oxygen Concentration - - Weight 81.6 kg (180 lb) 01/29/2024 1:14 PM CDT Height 152.4 cm (5') 01/29/2024 1:14 PM CDT Body Mass Index 35.15 01/29/2024 1:14 PM CDT documented in this encounter Progress Notes * Jadyn Hobson PA - 01/29/2024 1:15 PM CDTAssociated Order(s): Large Joint (Hip, Knee, Shoulder) Injection: R glenohumeral Post-Procedure Diagnose(s): Osteoarthritis of right glenohumeral joint; Complete tear of right rotator cuff, unspecified whether traumatic Injection Follow Up Patient is here for follow up on their right shoulder glenohumeral osteoarthritis and rotator cuff tear. Patient had an injection 10/27/2023 which did provide relief. Patient denies any [...] is in agreement with this treatment plan. LMP (LMP Unknown) Diagnosis Plan 1. Osteoarthritis of right glenohumeral joint 2. Complete tear of right rotator cuff, [...] well with no immediate complications TEO Carmichael documented in this encounter Plan of Treatment [...] Procedure Name Priority Date/Time Associated Diagnosis Comments [place] ARTHROCENTESIS ASPIR&/INJ MAJOR JT/BURSA W/O US Routine 01/29/2024 1:15 PM CDT Osteoarthritis of right glenohumeral joint Complete tear of right rotator cuff, unspecified whether traumatic documented in this encounter Results * VT ARTHROCENTESIS ASPIR&/INJ MAJOR JT/BURSA W/O US (01/29/2024 1:15 PM CDT) Narrative Jadyn Hobson PA - 01/29/2024 1:15 PM CDT Jadyn Hobson PA ? 01/29/2024 ??1:33 PM Large Joint (Hip, Knee, Shoulder) Injection: [...] mL 3 mL, One-Time Injection, Starting on Mon01/29/24 at 1315, For 1 dose, Indications: Administration of Local AnesthesiaIndications:Admini stration of Local Anesthesia Given 01/29/2024 1:15 PM CDT 3 mL Right Shoulder methylPREDNISolone acetate (DEPO-medrol) injection 80 mg 80 mg, intra-articular, One-Time Injection, Starting on Mon01/29/24 at 1315, For 1 doseIndications:Osteoarthrit is of right glenohumeral joint,Complete tear of right rotator cuff, unspecified whether traumatic Given 01/29/2024 1:15 PM CDT 80 mg Right Shoulder documented in this encounter Care Teams Advanced Practice Registered Nurse Relationship Specialty Start Date End Date Pepper Morgan MD PCP - General 09/16/16 Hank Garibay MD [address] [place] [address] [address] [address] Surgeon Orthopedic Surgery 03/27/17 Jacky Murry MD [address] [place] [address] [address] [place] [facility] [address] [place] [address] Ophthalmology 03/27/17 Puma Mckenzie MD 4 [facility] [address] [place] [facility] [address] [place] [address] Surgeon Orthopedic Surgery 07/11/19 Neha Jackson, PT Physical Therapist Physical Therapy 12/01/21 Stalin Arauz MD 2 [facility] [address] [place] [address] Consulting Physician Cardiology 12/08/22 Tiffany Rojas PA 4 [facility] [address] [place] [address] Gastroenterology 12/30/22 Klaus Deshpande MD [address] [facility] [address] [place] [address] Consulting Physician Neurology 06/13/23 documented as of this encounter
--- OUTSIDE RECORDS SUMMARY | 2024-06-18 18:48 | XMS_ITS | Encounter Summary ---
Author Organization [facility] Address [address] [place] [address] Care Team Providers Care Hose Tubing Backer Name Role Phone Pepper Morgan MD Primary Care Provider + [phone] Hank Garibay MD Unavailable [phone] Jacky Murry MD Unavailable [phone] Puma Mckenzie MD Unavailable [phone] Neha Jackson PT Unavailable Unavailable Stalin Arauz MD Unavailable [phone] Tiffany Rojas Unavailable [phone] Klaus Deshpande MD Unavailable [phone] Reason for Visit * Reason Comments Restless Legs 6mo f/u Encounter Details Date Type Department Care Team (Late st Contact Info) Description 03/25/2024 9:00 AM CDT Office Visit [facility] [address] [place] [address] [address] [place] [address] Klaus Deshpande MD [address] [place] [address] [address] [place] [address] Restless legs syndrome (Primary Dx); Essential tremor Social History Tobacco Use Types Packs/Day Years Used Date Smoking Tobacco: Former Cigarettes 2 30 1 - 1981 Smokeless Tobacco: Never Tobacco Cessation:Counseling [...] attend chur ch or hindu services? 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 Gender Identity Not on file Sexual Orientation Not on file Occupation Industry Job Start Date Job End Date retired Not on file Not on file Not on file documented as of this encounter Last Filed Vital Signs Vital Sign Reading Time Taken Comments Blood Pressure 114/77 03/25/2024 9:09 AM CDT Pulse 80 03/25/2024 9:09 AM CDT Temperature - - Respiratory Rate - - Oxygen Saturation 94% 03/25/2024 9:09 AM CDT Inhaled Oxygen Concentration - - Weight 80 kg (176 lb 6.4 oz) 03/25/2024 9:09 AM CDT Height 152.4 cm (5') 03/25/2024 9:09 AM CDT Body Mass Index 34.45 03/25/2024 9:09 AM CDT documented in this encounter Ordered Prescriptions Prescription Sig Dispense Quantity Refills Last Filled Start Date End Date gabapentin (NEURONTIN) 100 mg capsule Take 1 capsule (100 mg total) by mouth 3 (three) times a day 90 capsule 5 03/25/2024 documented in this encounter Progress Notes * Klaus Deshpande MD - 03/25/2024 9:00 AM CDT Subjective/Objective Patient ID: Tess Benedict is a 88 y.o. female. Chief Complaint I am seeing this 88 y.o. female in consultation requested by Dr. Pepper Morgan MD for tremor and leg discomfort. HPI Tremor: For details, see 11/11/2022. Since last visit on 08/31/2023, patient has been on propranolol 20 mg b.i.d. and tolerated well. Hertremor has been stable. Her blood pressure was 114/77, HR 79 today. Restless leg syndrome: For details, see 11/11/2022 note Since last visit on 08/31/2023, patient called on 01/01/2024 and reported that she was taking pramipexole 0.5 mg twice a day. Her restless leg syndrome was still bother her very much. Her pramipexole was increased to 0.75 b.i.d. over the phone. It helped a little, but stopped working. It still botherher. It affected her both legs the most. She felt jumping of legs, not much of feet. Walking took my mind off . She is on high dose of lasix in addition to Spirolactone. 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 CHF (congestive heart failure) (CMS/HCC) ([facility]) Cough DVT (deep venous thrombosis) (CMS/HCC) ([facility]) 1976 upper left arm near elbow--- Fibrocystic [...] carpal tunnel syndrome Superficial basal cell carcinoma 2002 Cancer, basal Cell Tobacco use 1-2ppd x 35yrs quit Allergies Allergen Reactions Celecoxib Anaphylaxis Scopolamine Mental status changes Delirium postop after joint replacement due to this medicine Sulfa (Sulfonamide Antibiotics) Anaphylaxis Amlodipine Swelling Lisinopril Swelling Trazodone Swelling Tongue Duloxetine Hcl Unknown Cipro [Ciprofloxacin Hcl] Vomiting Cymbalta [Duloxetine] Fatigue Sleepiness, tiredness possibly related to 20 mg morning dose of this medicine discontinued 11/30/2020 Sinemet [Carbidopa-Levodopa] Other (See comments) Night hines Current Outpatient Medications Medication Sig Dispense Refill [...] total) by mouth daily 30 tablet 11 ferrous fumarate 325 mg (106 mg iron) tablet Take 1 tablet (325 mg total) by mouth 3 (three) times a week Take with the vitamin-C 250 mg chewable tab 3 times weekly. The vitamin C will ensure absorption 60 tablet 1 fluticasone propion-salmeteroL (ADVAIR DISKUS) 100-50 mcg/dose [...] No current facility-administered medications for this visit. has a current medication list which includes the following prescription(s): acetaminophen, albuterol hfa, allopurinol, apixaban, ascorbic acid (vitamin c), carbamide peroxide, cetirizine, cholecalciferol, empagliflozin, ferrous fumarate, fluticasone propion-salmeterol, furosemide, metolazone, pantoprazole dr, polyethylene glycol, pramipexole, propranolol, spironolactone, and [DISCONTINUED] cyclobenzaprine. Family History Problem Relation Age of Onset [...] or 2 Frequency of Binge Drinking: Never BP 114/77 (BP Location: Right arm, Patient Position: Sitting) Pulse 80 Ht 152.4 cm (5') Wt 80kg (176 lb 6.4 oz) LMP (LMP Unknown) SpO2 94% BMI 34.45 kg/m?? Physical Exam Mental status: alert, speech fluent, comprehension intact, follow command appropriately Cranial nerve: SUSANNA, corneal reflex present. EOMI, VFF by confrontation method. Facial sensations symmetrical. Face symmetrical. Motor: bulk normal, tone normal, pronator drift negative. Strength 5/5. mild posture tremor of hands. Sensation: LT Normal and symmetrical. Gait: could walk independently. Need somebody to secure her from falling. slightly wobbly. Speed isslightly slow. 3-4 steps to turn. Feet lifting slightly low. DTRs: Knee and ankle absent. Assessment/Plan I am seeing this 88 y.o. female for tremor and leg discomfort. Tremor: Physical examination showed mild posture tremor of hands suggestive of essential tremor. Hehas been on Xarelto which has interaction with primidone. No evidence of Parkinson's disease. Discomfort of legs: Consistent with restless leg syndrome. Not controlled. Diagnoses and all orders for this visit: Essential tremor - recommend patient to use weighted pen and utensils - continue propranolol 20 mg b.i.d. Restless legs syndrome - continue pramipexole 0.75 mg/tablet, 1 tablet b.i.d. - discussed side effect including sudden sleep attack and impulse control problem. Instructed patient to call if she experiences any side effect. - start: Gabapentin 100 mg t.i.d. Past investigations: 1. 09/15/2021 CT of head without: No acute intracranial process. 2. 05/23/2022 iron 62 (50-150), TIBC 384 (250-400), iron saturation 16% (16-45). Follow-up in 6 months. documented in this encounter Plan of Treatment [...] this encounter Visit Diagnoses Diagnosis Restless legs syndrome- Primary Restless legs syndrome (RLS) Essential tremor documented in this encounter Care Teams Hose Tubing Backer Relationship Specialty Start Date End Date Pepper Morgan MD PCP - General 09/16/16 Hank Garibay MD [address] [facility] [address] [place] [address] Surgeon Orthopedic Surgery 03/27/17 Jacky Murry MD [address] [facility] [address] [place] [address] Ophthalmology 03/27/17 Puma Mckenzie MD [address] [facility] [address] [place] [address] Surgeon Orthopedic Surgery 07/11/19 Neha Jackson, PT Physical Therapist Physical Therapy 12/01/21 Stalin Arauz MD [address] [facility] [address] [place] [address] Consulting Physician Cardiology 12/08/22 Tiffany Rojas PA [address] [facility] [address] [place] [address] Gastroenterology 12/30/22 Klaus Deshpande MD [address] [facility] [address] [place] [address] Consulting Physician Neurology 06/13/23 documented as of this encounter
--- OUTSIDE RECORDS SUMMARY | 2024-06-18 18:48 | XMS_ITS | Encounter Summary ---
Author Organization [facility] Address [address] [place] [address] Care Team Providers Care Photographer Finish Name Role Phone Pepper Morgan MD Primary Care Provider + [phone] Hank Garibay MD Unavailable [phone] Jacky Murry MD Unavailable [phone] Puma Mckenzie MD Unavailable [phone] Neha Jackson PT Unavailable Unavailable Stalin Arauz MD Unavailable [phone] Tiffany Rojas Unavailable [phone] Klaus Deshpande MD Unavailable [phone] Reason for Referral * Procedure (Routine) - Authorized Specialty Diagnoses / Procedures Referred By Contac t Referred To Contact Diagnoses Bilateral impacted cerumen Procedures Ear Cerumen Removal Pepper Morgan MD [address] [address] Phone: tel: fax: [facility] Referral ID Status Reason Start Date Expiration Date V isits Requested Visits Authorized [id number] Authorized 02/08/2024 03/09/2025 1 1 Reason for Visit * Reason Comments Follow-up Encounter Details Date Type Department Care Team (Late st Contact Info) Description 02/08/2024 8:00 AM CDT Office Visit [facility] [address] [place] [address] Pepper Morgan MD [address] [address] CKD stage 3b, GFR 30-44 ml/min ([facility]); Gouty arthritis of foot; Acute on chronic heart failure with preserved ejection fraction (CMS/HCC) ([facility]); Hereditary essential tremor; Bilateral impacted cerumen; PAD (peripheral artery disease) ([facility]); Right leg weakness; Left hand weakness; Class 1 obesity with serious comorbidity and body mass index (BMI) of 34.0 to 34.9 in adult, unspecified obesity type; Tophaceous gout; Medication monitoring encounter Social History Tobacco Use Types Packs/Day Years Used Date Smoking Tobacco: Former Cigarettes 2 1981 Smokeless Tobacco: Never Alcohol Use Standard Drinks/Week Comments Not Currently 0 (1 standard drink = 0.6 oz pur e alcohol) [facility] Utilities Answer Date Recorded In the past 12 months has Carbonated Content, gas, oil, or water Observe [facility] threatened to shut off services in your [...] often do you attend chur ch or pentecostal services? Never 07/24/2023 Do you belong to [...] a skilled nursing (including now)? No 07/24/2023 Personal Safety Answer Date Recorded Have you ever been in or are you currently in a harmful physical or emotional relationship or is someone making you feel afraid or unsafe? 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 Gender Identity Not on file Sexual Orientation Not on file Occupation Industry Job Start Date Job End Date retired Not on file Not on file Not on file documented as of this encounter Last Filed Vital Signs Vital Sign Reading Time Taken Comments Blood Pressure 114/70 02/08/2024 7:55 AM CDT Pulse 101 02/08/2024 7:55 AM CDT Temperature 36.3 ??C (97.3 ??F) 02/08/2024 7:55 AM CD T Respiratory Rate 20 02/08/2024 7:55 AM CDT Oxygen Saturation 96% 02/08/2024 7:55 AM CDT Inhaled Oxygen Concentration - - Weight 80.7 kg (178 lb) 02/08/2024 7:55 AM CDT Height 152.4 cm (5') 02/08/2024 7:55 AM CDT Body Mass Index 34.76 02/08/2024 7:55 AM CDT documented in this encounter Patient Instructions * Patient Instructions* Pepper Morgan MD - 02/08/2024 8:00 AM CDT Tess Benedict to review this After Visit Summary ( AVS ) for accuracy & contact us if you find need for changes. == ORDERS FOR AMS STAFF TO ARRANGE: 1. Bilateral ear lavage for cerumen impaction with hearing impairment 2. Labs for annual in July chemistry profile, NT pro BNP, CBC, iron profile, free T4, TSH = acute on chronic diastolic heart failure Uric acid Level = gout medication monitoring with medication monitoring copies to Dr. Arauz 3. MEDICATION CHANGES RECOMMENDED TODAY: Potassium is being dose 20 mEq 2 tablets twice daily before meals Propranolol should be taken twice daily with breakfast and dinner for tremor and heart Cerumen removal can be accomplished at home. Purchase [id number] Debrox one drop twice weekly in the affected ear purchase [id number] ear vacuum or an remover kit. Once the wax has been loosened the vacuum or kit should be able to remove wax from the ear. If you have no success with this intervention, call the office for a nurse visit to remove the wax === Keep follow-up with Dr. Radha mulligan, ask him for some stretching might be helpful after thework that he was done and have him work on strengthening the right leg The MEDICATION LIST that your providers BELIEVE YOU ARE TAKING The Complete MEDICATION LIST at conclusion of visit 02/08/2024 Current Outpatient Medications: albuterol HFA, 2 puff, inhalation, Q6H PRN allopurinoL, 200 mg, oral, Daily ascorbic acid (vitamin C), 250 mg, oral, 3x weekly cetirizine, 10 mg, oral, Nightly cholecalciferol, 2,000 Units, oral, Daily empagliflozin, 10 mg, oral, Daily ferrous fumarate, 106 mg of elemental iron, oral, 3x weekly fluticasone propion-salmeteroL, 1 puff, inhalation, Daily furosemide, 80 mg, oral, Daily metOLazone, 5 mg, oral, Daily pantoprazole DR, 40 mg, oral, Daily potassium chloride ER, 40 mEq, oral, BID pramipexole, 0.75 mg, oral, BID propranoloL, 20 mg, oral, BID PRN (Patient taking differently: 20 mg, oral, Daily) rivaroxaban, 20 mg, oral, Daily (Patient taking differently: 20 mg, oral, Daily with lunch) spironolactone, 25 mg, oral, Daily carbamide peroxide, 5 drop, each ear, PRN ALLERGIES Allergies Allergen Reactions Celecoxib Anaphylaxis [...] Consulting Physician (Neurology) Primary Pharmacy/DME suppliers: [id number] [address] [facility] [address] [facility] [address] Please inform us if you have a change before follow-up visit For further INTERNET RESEARCH on your medical concerns: I recommend www.Reacción,NIH.GOV/MEDLINEPLUS = the [employer] library of medicine online site. This is a consistently reliable site for your personal medical research. documented in this encounter Ordered Prescriptions Prescription Sig Dispense Quantity Refills Last Filled Start Date End Date carbamide peroxide (DEBROX) 6.5 % otic solutionIndication s:Impacted Cerumen Administer 5 drops into each ear as needed for ear pain (monday right ear, monday left ear) 30 mL 1 02/08/2024 documented in this encounter Progress Notes * Pepper Morgan MD - 02/08/2024 8:00 AM CDT Images from the original note were not included. Patient ID: Tess Benedict is a 88 y.o. female. Tess Benedict presents for follow-up of her medication review and new medical concerns PLAN : ORDERS TO BE REVIEWED WITH her AT FOLLOW-UP VISIT: Return in about 6 months (around 08/10/2024) for Annual physical, Recheck. . Orders successfully placed before signing the note: Orders Placed This Encounter Procedures Ear Cerumen Removal Comprehensive metabolic panel Pro B-type natriuretic peptide Iron profile w/ IBC T4, free TSH CBC with auto differential Uric acid MEDICATION CHANGES AND REFILL MANAGEMENT: medication list at conclusion of this encounter: Current Outpatient Medications: albuterol HFA, 2 puff, inhalation, Q6H PRN allopurinoL, 200 mg, oral, Daily ascorbic acid (vitamin C), 250 mg, oral, 3x weekly cetirizine, 10 mg, oral, Nightly cholecalciferol, 2,000 Units, oral, Daily empagliflozin, 10 mg, oral, Daily ferrous fumarate, 106 mg of elemental iron, oral, 3x weekly fluticasone propion-salmeteroL, 1 puff, inhalation, Daily furosemide, 80 mg, oral, Daily metOLazone, 5 mg, oral, Daily pantoprazole DR, 40 mg, oral, Daily potassium chloride ER, 40 mEq, oral, BID pramipexole, 0.75 mg, oral, BID propranoloL, 20 mg, oral, BID PRN (Patient taking differently: 20 mg, oral, Daily) rivaroxaban, 20 mg, oral, Daily (Patient taking differently: 20 mg, oral, Daily with lunch) spironolactone, 25 mg, oral, Daily carbamide peroxide, 5 drop, each ear, PRN HPI - ASSESSMENT & DIFFERENTIAL DIAGNOSIS 1. CKD stage 3b, GFR 30-44 ml/min ([facility]) Compromised kidney function with the creatinine clearance of 34. She was tolerating medications as prescribed. Diuretics managed by Dr. Arauz 2. Gouty arthritis of foot Fortunately medications working well with tophaceous gout coming under control no gout flares tolerating 3. Acute on chronic heart failure with preserved ejection fraction (CMS/HCC) ([facility]) Chronic controlled today. NT pro BNP again in 6 months. 4. Hereditary essential tremor Only taking propranolol once daily double that to twice daily dosing for her heart disease and her tremor. Unfortunately her blood thinning medications show drug drug interaction with primidone whichcan not be started. Appreciate long- term help from Dr. Deshpande about this problem 5. Bilateral impacted cerumen Hearing loss related bilateral packing of the cerumen. Dramatically improved today after ear lavageand digital removal of wax impaction. She will start Debrox Monday night as ordered carbamide peroxide (DEBROX) 6.5 % otic solution; Administer 5 drops into each ear as needed for earpain (monday right ear, monday left ear) Dispense: 30 mL; Refill: 1 6. PAD (peripheral artery disease) ([facility]) 7. Right leg weakness Severe PAD. Appreciate consultation from Dr. Arauz. Left leg has been opened and the pulses palpable in the leg is working really well. The right leg pulse can not be palpated leg is warm however theabduction and strength are markedly diminished. Reason for that strength reduction is unclear. She was not interested in any further testing. She does follow with Dr. Tyson her chiropractor and prefers to have him work on some mobility with her. She will start strengthening exercises previously taught from physical therapy. 8. Left hand weakness 9. 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 Does not feel physically able to proceed to surgery that would be necessary for repair. She was very little use of this arm because of the right shoulder. 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 He was still feels able to manage taking care of herself as long as she does not do any intervention. She continues tofollow orthopedics receiving cortisone injections that are minimally effective. Since they are minimally effective she was advised to stop the treatments. Tylenol immediate release 500+ Tylenol ER 650 twice daily recommended his pain control 9. Class 1 obesity with serious comorbidity and body mass index (BMI) of 34.0 to 34.9 in adult, unspecified obesity type Not a good candidate for medication interventions with her multiple comorbidities. Exercise interventions recommended. Diet reviewed. REVIEW OF SYSTEMS: Review of Systems Constitutional: Positive for activity change (Overall slow decline in physical activities and endurance for the past 6 months). Negative for appetite change, fatigue, fever and unexpected weight change. HENT: Negative for congestion, dental problem, hearing loss, postnasal drip, sinus pressure, sore throat and trouble swallowing. Eyes: Negative for pain, discharge, itching and visual disturbance. Respiratory: Negative for cough, chest tightness, shortness of breath and wheezing. Cardiovascular: Negative for chest pain and palpitations. Gastrointestinal: Negative for abdominal distention, abdominal pain, anal bleeding, blood in stool,constipation, diarrhea, nausea, rectal pain and vomiting. Endocrine: Negative for cold intolerance, heat intolerance and polyuria. Genitourinary: Negative for difficulty urinating, dysuria, flank pain, frequency, hematuria, menstrual problem, pelvic pain and vaginal discharge. Musculoskeletal: Positive for arthralgias (most especially in the knees and hands) and gait problem. Negative for joint swelling and myalgias. Skin: Negative for color change and rash. Neurological: Positive for weakness. Negative for dizziness and headaches. Hematological: Negative for adenopathy. Does not bruise/bleed easily. Psychiatric/Behavioral: Positive for sleep disturbance. Negative for behavioral problems and dysphoric mood. The patient is not nervous/anxious. VITAL SIGNS: BP 114/70 (BP Location: Left arm, Patient Position: Sitting) Pulse 101 Temp 36.3 ??C (97.3 ??F)(Temporal) Resp 20 Ht 152.4 cm (5') Wt 80.7 kg (178 lb) LMP (LMP Unknown) SpO2 96% BMI 34.76 kg/m?? Body mass index is 34.76 kg/m??. Wt Readings from Last 3 Encounters: 02/08/24 80.7 kg (178 lb) 01/29/24 81.6 kg (180 lb) 01/11/24 80.7 kg (178 lb) PHYSICAL EXAMINATION: Physical Exam Vitals and [...] 2nd interspace not radiating to the axilla Pulses weak and intact in the left leg absent in the right leg with no evidence of acute ischemia Pulmonary: Effort: Pulmonary effort is normal. Breath [...] Cranial Nerves: No cranial nerve deficit. Motor: Weakness (of abduction right leg) present. No abnormal muscle tone. Coordination: Coordination abnormal. Gait: Gait abnormal. Deep Tendon Reflexes: Reflexes abnormal. Psychiatric: Mood and Affect: Mood normal. Behavior: Behavior normal. Thought Content: Thought content normal. Judgment: Judgment normal. MOST RECENT LABS: Lab on 01/25/2024 Component Date Value Albumin Ur 01/25/2024 <12.0 Creatinine Ur 01/25/2024 11.1 Albumin Creatinine Ratio* 01/25/2024 See Comment Magnesium 01/25/2024 2.0 Sodium 01/25/2024 132 (L) Potassium, pl 01/25/2024 4.1 Chloride 01/25/2024 90 (L) CO2 01/25/2024 28 Anion gap 01/25/2024 14 BUN 01/25/2024 58 (H) Creatinine 01/25/2024 1.48 (H) Glucose 01/25/2024 115 Calcium 01/25/2024 9.9 Phosphorus, pl 01/25/2024 3.8 Albumin 01/25/2024 3.8 Hgb A1C 01/25/2024 5.8 (H) Estimated Average Glucose 01/25/2024 120 Uric acid 01/25/2024 6.4 eGFR 01/25/2024 34 (L) Lab on 01/04/2024 Component Date Value NT-proBNP [...] pct 10/26/2023 0.7 eGFR 10/26/2023 33 (L) Any Patient specific educational requests are printed [...] THE CODE REVIEW TEAM == ICD-10-CM 1. CKD stage 3b, GFR 30-44 ml/min (HCC) N18.32 2. Gouty arthritis of foot M10.9 Uric acid 3. Acute on chronic heart failure with preserved ejection fraction (CMS/HCC) ([facility]) I50.33 Comprehensive metabolic panel Pro B-type natriuretic peptide Iron profile w/ IBC T4, free TSH CBC with auto differential 4. Hereditary essential tremor G25.0 5. Bilateral impacted cerumen H61.23 carbamide peroxide (DEBROX) 6.5 % otic solution Ear Cerumen Removal 6. PAD (peripheral artery disease) ([facility]) I73.9 7. Right leg weakness R29.898 8. Left hand weakness R29.898 9. Class 1 obesity with serious comorbidity and body mass index (BMI) of 34.0 to 34.9 in adult, unspecified obesity type E66.9 Z68.34 10. Tophaceous gout [id number].[id number] Uric acid 11. Medication monitoring encounter Z51.81 Uric acid documented in this encounter Plan of Treatment Scheduled Orders Name Type Priority Associated Diagnoses Orde r Schedule Comprehensive metabolic panel Lab Routine Acute on chronic heart failure with preserved ejection fraction (CMS/HCC) ([facility]) Expected: 02/11/2024, Expires: 02/07/2025 Pro B-type natriuretic peptide Lab Routine Acute on chronic heart failure with preserved ejection fraction (CMS/HCC) ([facility]) Expected: 02/08/2024, Expires: 02/07/2025 Iron profile w/ IBC Lab Routine Acute on chronic heart failure with preserved ejection fraction (CMS/HCC) ([facility]) Expected: 02/08/2024, Expires: 02/07/2025 T4, free Lab Routine Acute on chronic heart failure with preserved ejection fraction (CMS/HCC) ([facility]) Expected: 02/08/2024, Expires: 02/07/2025 TSH Lab Routine Acute on chronic heart failure with preserved ejection fraction (CMS/HCC) ([facility]) Expected: 02/08/2024, Expires: 02/07/2025 CBC with auto differential Lab Routine Acute on chronic heart failure with preserved ejection fraction (CMS/HCC) ([facility]) Expected: 02/08/2024, Expires: 02/07/2025 Uric acid Lab Routine Gouty arthritis of foot Tophaceous gout Medication monitoring encounter Expected: 02/08/2024, Expires: 02/07/2025 documented as of this encounter Goals Goal [...] Procedure Name Priority Date/Time Associated Diagnosis Comments EAR CERUMEN REMOVAL Routine 02/08/2024 9 :52 AM CDT Bilateral impacted cerumen documented in this encounter Results * Ear Cerumen Removal (02/08/2024 9:52 AM CDT) Kristan Wolf, MA - 02/08/2024 9:52 AM CDT Ear irrigations completed without complaint. Good results able to see ear drums after procedure. us Pepper Morgan MD IN CLINIC/BEDSIDE ORDERABL ES Final Result documented in this encounter Visit Diagnoses Diagnosis CKD stage 3b, GFR 30-44 ml/min ([facility]) Gouty arthritis of foot Acute on chronic heart failure with preserved ejection fraction (CMS/HCC) ([facility]) Hereditary essential tremor Essential and other specified forms of tremor Bilateral impacted cerumen Impacted cerumen PAD (peripheral artery disease) ([facility]) Unspecified peripheral vascular disease Right leg weakness Muscle weakness (generalized) Left hand weakness Muscle weakness (generalized) Class 1 obesity with serious comorbidity and body mass index (BMI) of 34.0 to 34.9 in adult, unspecified obesity type Tophaceous gout Medication monitoring encounter Encounter for therapeutic drug monitoring documented in this encounter Discontinued Medications Medication Sig Discontinue Reason Start Date End Da te carvediloL (COREG) 6.25 mg tablet Take 1 tablet (6.25 mg total) by mouth 2 (two) times a day with meals Therapy completed 07/20/2023 08/07/2023 polyethylene glycol (MIRALAX) 17 gram packetIndications:const ipation Take 1 packet (17 g total) by mouth daily as needed for constipation Therapy completed 02/08/2024 ondansetron ODT (ZOFRAN-ODT) 4 mg disintegrating tablet Take 1 tablet (4 mg total) by mouth every 8 (eight) hours as needed for nausea or vomiting Therapy completed 08/14/2023 02/08/2024 predniSONE (DELTASONE) 10 mg tabletIndications:Gout Take 2 tabs (20 mg) daily x 5 days then just take 1 tab (10 mg) daily. Therapy completed 01/03/2024 02/08/2024 mupirocin (BACTROBAN) 2 % ointmentIndications:Con tusion of skin Apply topically 3 (three) times a day Therapy completed 01/11/2024 02/08/2024 documented as of this encounter Care Teams Photographer Finish Relationship Specialty Start Date End Date Pepper Morgan MD PCP - General 09/16/16 Hank Garibay MD [address] [facility] [address] [place] [address] Surgeon Orthopedic Surgery 03/27/17 Jacky Murry MD [address] [facility] [address] [place] [address] Ophthalmology 03/27/17 Puma Mckenzie MD [address] [facility] [address] [place] [address] Surgeon Orthopedic Surgery 07/11/19 Neha Jackson, PT Physical Therapist Physical Therapy 12/01/21 Stalin Arauz MD [address] [facility] [address] [place] [address] Consulting Physician Cardiology 12/08/22 Tiffany Rojas PA [address] [facility] [address] [place] [address] Gastroenterology 12/30/22 Klaus Deshpande MD [address] [facility] [address] [facility] [place] [address] Consulting Physician Neurology 06/13/23 documented as of this encounter
--- OUTSIDE RECORDS SUMMARY | 2024-06-18 18:48 | XMS_ITS | Encounter Summary ---
Author Organization [facility] Healthcare Address [address] [place] [address] Care Team Providers Care Sand Analyst Name Role Phone Pepper Morgan MD Primary Care Provider [phone] Hank Garibay MD Unavailable Jacky Murry MD Unavailable [phone] Puma Mckenzie MD Unavailable [phone] Neha Jackson PT Unavailable Unavailable Stalin Arauz MD Unavailable [phone] Tiffany Rojas Unavailable [phone] Klaus Deshpande MD Unavailable [phone] Andrea Waddell RN Unavailable [phone] Encounter Details Date Type Department Care Team (Late st Contact Info) Description 01/11/2024 Telephone [facility] [address] [place] [address] Pepper Morgan MD [address] [place] [address] Social History Tobacco Use Types Packs/Day Years Used Date Smoking Tobacco: Former Cigarettes 2 30 1 952 - 1981 Smokeless Tobacco: Never Alcohol Use Standard Drinks/Week Comments Not Currently 0 (1 standard drink = 0.6 oz pur e alcohol) [facility] Utilities Answer Date Recorded In [...] often do you attend chur ch or sabianism services? 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 Morgan. She voiced understanding about stopping the aspirin. * Telephone Encounter - Katy Lopes RN - 01/12/2024 8:56 AM CDT Left message to return call. * Telephone Encounter - Pepper Morgan MD - 01/11/2024 9:[address] Arauz agrees OK to stop ASA. This should help reduce the bruising. KMS documented in this encounter Plan of Treatment [...] on filedocumented in this encounter Care Teams Sand Analyst Relationship Specialty Start Date End Date Pepper Morgan MD PCP - General 09/16/16 Hank Garibay MD [address] [facility] [address] [place] [address] Surgeon Orthopedic Surgery 03/27/17 Jacky Murry MD [address] [facility] [address] [place] [address] Ophthalmology 03/27/17 Puma Mckenzie MD [address] [facility] [address] [place] [address] Surgeon Orthopedic Surgery 07/11/19 Neha Jackson, PT Physical Therapist Physical Therapy 12/01/21 Stalin Arauz MD [address] [facility] [address] [place] [address] Consulting Physician Cardiology 12/08/22 Tiffany Rojas PA [address] [facility] [address] [place] [address] Gastroenterology 12/30/22 Klaus Deshpande MD [address] [place] [address] [address] [facility] [place] [address] Consulting Physician Neurology 06/13/23 Andrea Waddell, RN [address] [place] [address] [address] [place] [address] Sanitary Landfill Supervisor 01/11/24 01/14/24 documented as of this encounter
--- OUTSIDE RECORDS SUMMARY | 2024-06-18 18:48 | XMS_ITS | Encounter Summary ---
Author Organization Formerly [facility] Address [address] [place] [address] Care Team Providers Care Credit Collector Name Role Phone Pepper Morgan MD Primary Care Provider + [phone] Hank Garibay MD Unavailable [phone] Jacky Murry MD Unavailable [phone] Puma Mckenzie MD Unavailable [phone] Neha Jackson PT Unavailable Unavailable Stalin Matt MD Unavailable [phone] Tiffany Rojas Unavailable [phone] Klaus Deshpande MD Unavailable [phone] Reason for Referral * Diagnostic Imaging (Routine) - Closed Specialty Diagnoses / Procedures Referred By Contac t Referred To Contact Diagnoses Peripheral arterial disease (HCC) Procedures [facility] Stalin Matt MD [address] [place] [place] [address] [address] Phone: tel: fax: [facility] [address] [place] [phone] Referral ID Status Reason Start Date Expiration Date Visits Re quested Visits Authorized [id number] Closed 01/15/2024 02/13/2025 1 1 Reason for Visit * Diagnostic Imaging (Routine) - Closed Specialty Diagnoses / Procedures Referred By Contnahun t Referred To Contact Diagnoses Peripheral arterial disease (HCC) Procedures Stalin Leslie MD [address] [place] [id number] Phone: tel: fax: [address] [address] Referral ID Status Reason Start Date Expiration Date Visits Re quested Visits Authorized [id number] Closed 01/15/2024 02/13/2025 1 1 Encounter Details Date Type Department Care Team (Latest Contact Info) Description 02/22/2024 3:18 PM CDT - 02/22/2024 11:59 PM CDT Hospital Encounter [address] [address] Peripheral arterial disease (HCC) Discharge Disposition: Discharge to home or self care Social History Tobacco Use Types Packs/Day Years Used Date Smoking Tobacco: Former Cigarettes 2 1981 Smokeless Tobacco: Never Alcohol Use Standard Drinks/Week Comments Not Currently 0 (1 standard drink = 0.6 oz pur e alcohol) [facility] Utilities Answer Date Recorded In the past 12 months has [employer] electric, gas, oil, or water [employer] threatened to shut off services in your [...] often do you attend chur ch or samaritan services? 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 Gender Identity Not on file Sexual Orientation Not on file Occupation Industry Job Start Date Job End Date retired Not on file Not on file Not on file documented as of this encounter Medications at Time of Discharge albuterol HFA (Proventil HFA) 90 mcg/actuation inhalerIndication s:Mild persistent asthma, unspecified whether complicated Inhale 2 puffs every 6 (six) hours as needed for wheezing or shortness of breath 6.7 g 3 06/13/2023 ascorbic acid, vitamin C, 250 mg tablet,chewable [...] mouth 3 (three) times a day 01/12/[address] (PROTONIX) 40 mg EC tabletIndications :Treatment of Non-Bleeding Gastric Disorder Take 1 tablet (40 mg total) by mouth daily 90 tablet 2 01/11/2024 spironolactone (ALDACTONE) 25 mg tablet Take 1 [...] ensure absorption 60 tablet 1 01/12/2024 4 fluticasone propion-salmetero L (ADVAIR DISKUS) 100-50 mcg/dose diskus inhaler Inhale 1 puff daily Rinse mouth with water after use. Do not swallow. 11/27/2023 4 furosemide (LASIX) 80 mg tablet Take 1 tablet (80 mg total) by mouth daily Patient to take an additional 80mg every day if weight increase. 180 tablet 3 01/10/2024 4 metOLazone (ZAROXOLYN) 5 mg tabletIndications :Peripheral Edema due to Chronic Heart Failure Take 1 tablet (5 mg total) by mouth daily 30 tablet 11 10/30/2023 4 potassium chloride ER 20 mEq CR tablet Take 2 tablets (40 mEq total) by mouth 2 (two) times a day 120 tablet 11 07/19/2023 4 pramipexole (MIRAPEX) 0.75 mg tabletIndications :Restless legs syndrome Take 1 tablet (0.75 mg total) by mouth 2 (two) times a day 60 tablet 3 01/28/2024 4 propranoloL (INDERAL) 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 :Hereditary essential tremor Take 1 tablet (20 mg total) by mouth 2 (two) times a day as needed (Tremor) 180 tablet 2 07/13/2023 4 rivaroxaban (XARELTO) 20 mg tablet Take 1 tablet (20 mg total) by mouth daily 30 tablet 11 12/08/2022 4 documented as of this encounter Discharge Disposition Disposition Code Departure Means Destination Discharge to home or self care documented in this encounter Plan of Treatment Not on file documented as of this encounter Goals Goal Patient Goal Type Associated Problems Recent Progress Patient-Stated? Author [facility] Im[facility]( 3:34 PM CDT) Domitila Gaston, XU Note: Patient will establish a comfort-function goal and identify the pain level that will allow the patient to perform desired activities and achieve an acceptable quality of life. documented as of this encounter Procedures Procedure Name Priority Date/Time Associated Diagnosis Comments US JONATHAN Schedule Routine, Read Routine (OP Routine) 02/22/2024 4:14 PM CDT Peripheral arterial disease (HCC) documented in this encounter Results * US JONATHAN (02/22/2024 4:14 PM CDT) Anatomical Region Laterality Modality Vascular N/A Ultrasound 02/22/2024 3:38 PM CDT Narrative 02/22/2024 5:07 PM CDT [address] [address] Ankle Brachial Index Report Patient Name: TESS KOO I ?? : 1935 (88y 2m) ??Gender: F Study Date: 02-22-2024 03:38:00 PM Bobbin Drier: Order Provider: STALIN MATT Quality: Adequate Ref [...] Procedure Note Stalin Matt MD - 02/22/[address] [address] Ankle Brachial Index Report Patient Name: TESS KOO I : 1935 (88y 2m) Gender: F Study Date: 02-22-2024 03:38:00 PM Bobbin Drier: Saranya Provider: STALIN MATT Quality: Adequate Ref [...] essentially unchanged when compared to prior study [facility] 2023. FINDINGS: MEASUREMENTS: Right Value Left Value Rt Brachial Pressure 116 mmHg Lt Ankle Pressure 66 mmHg Rt Ankle Pressure 69 mmHg Lt Dorsalis Pedis 73 mmHg Rt Dorsalis Pedis 70 mmHg Lt Toe Pressure 38 mmHg Rt Toe Pressure 49mmHg Electronically Signed By: Stalin Matt MD 2024-02-22 17:07:19 CDT Stalin Matt MD [facility] [place] US PROCEDURES Final Result documented in this encounter Visit Diagnoses Diagnosis Peripheral arterial disease (HCC) Unspecified peripheral vascular disease documented in this encounter Care Teams Credit Collector Relationship Specialty Start Date End Date Pepper Morgan MD PCP - General 09/16/16 Hank Garibay MD [address] [facility] [address] [place] [address] Surgeon Orthopedic Surgery 03/27/17 Jacky Murry MD [address] [facility] [address] [place] [address] Ophthalmology 03/27/17 Puma Mckenzie MD [address] [facility] [address] [place] [address] Surgeon Orthopedic Surgery 07/11/19 Neha Jackson, PT Physical Therapist Physical Therapy 12/01/21 Stalin Matt MD [address] [facility] [address] [place] [address] Consulting Physician Cardiology 12/08/22 Tiffany Rojas, PA [address] [facility] [address] [place] [address] Gastroenterology 12/30/22 Klaus Deshpande MD [address] [facility] [address] [place] [address] Consulting Physician Neurology 06/13/23 documented as of this encounter
--- OUTSIDE RECORDS SUMMARY | 2024-06-18 18:49 | XMS_ITS | Encounter Summary ---
Author Organization [facility] Healthcare Address [address] [place] [address] Care Team Providers Care Shoe Shiner Name Role Phone Pepper Morgan MD Primary Care Provider +- [phone] Hank Garibay MD Unavailable [phone] Jacky Murry MD Unavailable [phone] Puma Mckenzie MD Unavailable [phone] Neha Jackson PT Unavailable Unavailable Stalin Arauz MD Unavailable [phone] Tiffany Rojas Unavailable [phone] Klaus Deshpande MD Unavailable [phone] Reason for Visit * Reason Onset Date Comments Nausea 11/20/2023 Encounter Details Date Type Department Care Team (Late st Contact Info) Description 11/20/2023 Telephone [facility] [address] [place] [address] Pepper Morgan MD [address] [address] Nausea Social History Tobacco Use Types Packs/Day Years Used Date Smoking Tobacco: Former Cigarettes 2 30 1 952 - 1981 Smokeless Tobacco: Never Alcohol Use Standard Drinks/Week Comments Not Currently 0 (1 standard drink = 0.6 oz pur e alcohol) [facility] Utilities Answer Date Recorded In the [...] often do you attend chur ch or oriental orthodox services? 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 This is reason to stop the allopurinol although the problemmight be the allopurinol alone, the colchicine alone, or both the allopurinol and colchicine in combination Orders: Stop allopurinol, keep colchicine Let me know how she was feeling with her nausea next weak Note, if no further nausea then will proceed with a new medicine = When she is feeling better we can try Febuxostat 40mg daily-- but it is a little more expensive. Check to see if we can get formulary exception from her insurance If she was completely well by next week have her remind us to put allopurinol on her allergy list with a side Left a message for the pt to call us back * Telephone Encounter - Milana Fuentes RN - 11/20/2023 12:24 PM CDT Pt states that ever since she started on the allopurinol she has had nausea It is getting worst She vomited today and she is using Zofran for nausea and it is not helping Pt states that she took the medication today Informed pt to stop the medication Remain on clear liquids She will call us back with any questions or further problems TOKMS:pt started on allopurinol on 10/25 She has had nausea since she started the medication She has even vomited using zofran Informed pt to stop the mediation Any alternative medications? * Telephone Encounter - Jacqueline Plasencia - 11/20/2023 8:04 AM CDT Patient states started gout medication on the and then a higher amount on . States when she started the higher amount she has felt nauseated. Poor appetite. Has been taking zofran for the nausea but states it is not working for her. States she is coming in today for labs. [phone] [facility] Tuan Sparks documented in this encounter Plan [...] on filedocumented in this encounter Care Teams Shoe Shiner Relationship Specialty Start Date End Date Pepper Morgan MD PCP - General 09/16/16 Hank Garibay MD [address] [facility] [address] [place] [address] Surgeon Orthopedic Surgery 03/27/17 Jacky Murry MD [address] [facility] [address] [place] [address] Ophthalmology 03/27/17 Puma Mckenzie MD [address] [facility] [address] [place] [address] Surgeon Orthopedic Surgery 07/11/19 Neha Jackson, PT Physical Therapist Physical Therapy 12/01/21 Stalin Arauz MD [address] [facility] [address] [place] [address] Consulting Physician Cardiology 12/08/22 Tiffany Rojas PA [address] [place] [address] [address] [place] [address] Gastroenterology 12/30/22 Klaus Deshpande MD [address] [facility] [address] [place] [address] Consulting Physician Neurology 06/13/23 documented as of this encounter
--- OUTSIDE RECORDS SUMMARY | 2024-06-18 18:49 | XMS_ITS | Encounter Summary ---
Author Organization [facility] Healthcare Address [address] [place] [address] Care Team Providers Care Diagrammer And Seamer Name Role Phone Pepper Morgan MD Primary Care Provider + [phone] Hank Garibay MD Unavailable [phone] Jacky Murry MD Unavailable [phone] Puma Mckenzie MD Unavailable [phone] Neha Jackson PT Unavailable Unavailable Stalin Arauz MD Unavailable [phone] Tiffany Rojas Unavailable [phone] Klaus Deshpande MD Unavailable [phone] Encounter Details Date Type Department Care Team (Late st Contact Info) Description 11/21/2023 Telephone [facility] [address] [place] [phone] Yvette Zapata, RN Social History Tobacco Use Types Packs/Day Years Used Date Smoking Tobacco: Former Cigarettes 2 30 1 95 - 1981 Smokeless Tobacco: Never Alcohol Use Standard Drinks/Week Comments Not Currently 0 (1 standard drink = 0.6 oz pur e alcohol) [facility] Utilities Answer Date Recorded In the past 12 months has [employer], gas, oil, or water company threatened to [...] attend chur ch or scientology services? Never 07/24/2023 Do you belong to [...] place to sleep or slept in a long term (including now)? No 07/24/2023 Personal Safety Answer Date Recorded Have you ever been in or are you currently in a harmful physical or emotional relationship or is someone making you feel afraid or unsafe? 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 She voiced understanding to all information. She will stop the allopurinol and call with a report next week. * Telephone Encounter - Milana Fuentes RN - 11/21/2023 4:41 PM CDT Left message for the pt to call us back * Telephone Encounter - Milana Fuentes RN - 11/21/2023 3:19 PM CDT Thank you very much for [...] for the pt to call us back Left a message for the pt and her daughter to call us back * Telephone Encounter - Yvette Zapata RN - 11/21/2023 11:08 AM CDT ----- Message from Pepper Morgan MD sent at 11/20/2023 10:14 PM CDT ----- Encouraged her to keep working on this gout problem. Uric acid levels are much better down to 8 andour goal is to get her less than 6 and not have a gout attack while we are trying. I already sent message earlier about how to adjust her medicines to help nausea problems associated with these pills.-please refer to separate message before you call her Dr. Pepper Morgan documented in this encounter Plan of Treatment [...] on filedocumented in this encounter Care Teams Diagrammer And Seamer Relationship Specialty Start Date End Date Pepper Morgan MD PCP - General 09/16/16 Hank Garibay MD [address] [facility] [address] [place] [address] Surgeon Orthopedic Surgery 03/27/17 Jacky Murry MD [address] [facility] [address] [facility] [address] [place] [address] Ophthalmology 03/27/17 Puma Mckenzie MD [address] [facility] [address] [facility] [address] [place] [address] Surgeon Orthopedic Surgery 07/11/19 Neha Jackson, PT Physical Therapist Physical Therapy 12/01/21 Stalin Arauz MD [address] [facility] [address] [place] [address] Consulting Physician Cardiology 12/08/22 Tiffany Rojas PA [address] [facility] [address] [place] [address] Gastroenterology 12/30/22 Klaus Deshpande MD [address] [facility] [address] [place] [address] Consulting Physician Neurology 06/13/23 documented as of this encounter
--- OUTSIDE RECORDS SUMMARY | 2024-06-18 18:49 | XMS_ITS | Encounter Summary ---
Author Organization [facility] Healthcare Address [address] [place] [address] Care Team Providers Care Electric Utility Lineworker Name Role Phone Pepper Morgan MD Primary Care Provider [phone] Hank Garibay MD Unavailable [phone] Jacky Murry MD Unavailable [phone] Puma Mckeznie MD Unavailable [phone] Neha Jackson PT Unavailable Unavailable Stalin Arauz MD Unavailable [phone] Tiffany Rojas Unavailable [phone] Klaus Deshpande MD Unavailable [phone] Encounter Details Date Type Department Care Team (Late st Contact Info) Description 10/04/2023 Telephone [facility] [address] [place] [id number] Pepper Morgan MD [address] [place] [address] Social History Tobacco Use Types Packs/Day Years Used Date Smoking Tobacco: Former Cigarettes 2 30 1 952 - 1982 Smokeless Tobacco: Never Alcohol Use Standard Drinks/Week Comments Not Currently 0 (1 standard drink = 0.6 oz pur e alcohol) [facility] Utilities Answer Date Recorded In [...] often do you attend chur ch or taoist services? 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 Pt is not interested in paying out of pocket for this med. She will discuss further with JUAN CARLOS at appt in December. * Telephone Encounter - Yvette Zapata RN - 10/04/2023 3:40 PM CDT LM for pt to call back. Will need appt to discuss. Can schedule with Sabine or wait to discuss with JUAN CARLOS in December. * Telephone Encounter - Eri Owens - 10/04/2023 9:08 AM CDT Pt wants to know if would start her on Wegovy. [facility]#[id number] patient documented in this encounter Plan of Treatment [...] on filedocumented in this encounter Care Teams Electric Utility Lineworker Relationship Specialty Start Date End Date Pepper Morgan MD PCP - General 09/16/16 Hank Garibay MD [address] [facility] [address] [facility] [address] [place] [address] Surgeon Orthopedic Surgery 03/27/17 Jacky Murry MD [address] [facility] [address] [facility] [address] [place] [address] Ophthalmology 03/27/17 Puma Mckenzie MD [address] [facility] [address] [place] [address] Surgeon Orthopedic Surgery 07/11/19 Neha Jackson, PT Physical Therapist Physical Therapy 12/01/21 Stalin Arauz MD [address] [facility] [address] [place] [address] Consulting Physician Cardiology 12/08/22 Tiffany Rojas PA [address] [facility] [address] [place] [address] Gastroenterology 12/30/22 Klaus Deshpande MD [address] [facility] [place] [address] Consulting Physician Neurology 06/13/23 documented as of this encounter
--- OUTSIDE RECORDS SUMMARY | 2024-06-18 18:49 | XMS_ITS | Encounter Summary ---
Author Organization [facility] Healthcare Address [address] [place] [address] Care Team Providers Care Theater Set Production Designer Name Role Phone Pepper Morgan MD Primary Care Provider [phone]- [phone] aHnk Garibay MD Unavailable [phone] Jacky Murry MD Unavailable [phone] Puma Mckenzie MD Unavailable [phone] Neha Jackson PT Unavailable Unavailable Stalin Arauz MD Unavailable [phone] Tiffany Rojas Unavailable [phone] Klaus Deshpande MD Unavailable [phone] Encounter Details Date Type Department Care Team (Late st Contact Info) Description 10/25/2023 Telephone [facility] Medical Group [facility] [address] [place] [id number] Pepper Morgan MD [address] [place] [address] Social History Tobacco Use Types Packs/Day Years [...] often do you attend chur ch or pentecostalism services? Never 07/24/2023 Do you belong to any clubs o r organizations such as worship groups, unions, fraternal or athletic groups, or [...] place to sleep or slept in a group home (including now)? No 07/24/2023 Personal Safety Answer Date Recorded Have you ever been in or are you currently in a harmful physical or emotional relationship or is someone making you feel afraid or unsafe? 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 * Telephone Encounter - Katy Lopes RN - 10/25/2023 3:17 PM CDT Patient called and said she did try to get a ride for the 8:30 appt and has not been able to find one. She said she may be able to get a ride in the afternoon but unsure. ZANE Guy * Telephone Encounter - Katy Lopes RN - 10/25/2023 2:32 PM CDT Images from the original note were not included. Pepper Morgan MD to [facility]/ Staff Pool 10/25/23 1:42 PM I feel bad for this lady looks like she has been out of control problem. Looks like she needs a sick call with me tomorrow put her on the list somewhere to be seen bring all her pills to the office so we can review what is causing the trouble and get appropriate labs done and get her started on theright medicines Called patient to offer appt tomorrow with [facility] at 0830. Patient said she did not think she can get a ride at that time of day and she is not sure how she would get in due to the pain. When she steps on her foot it feels like a knife. Notified patient wheelchairs are in the front of building if someone could bring her to the front door. She voiced understanding. Patient said she may be able to get here in the afternoon. Will defer to KATHERINE Guy to help with scheduling. TOKMS: Patient said she is not on the Febuxostat. She said she was put on it a few months back by Dr. Lili Conklin. Patient said she took 1 pill but read about the risks with her heart and quit taking it after that. She asked if she can take anything tonight. Tylenol is not doing much. Please advise * Telephone Encounter - Katy Lopes RN - 10/25/2023 12:05 PM CDT Images from the original note were not included. October 25, 2023 Pepper Morgan MD to [facility]/ Staff Pool 10/25/23 11:46 AM Contact the patient and find out if she ever picked up the colchicine prescribed last week to see if we can prevent the gout flare and if it worked--the medication is expensive as colchicine and I sent it in as the generic name = MITIGAR COLCHICINE is dosed as follows = Colchicine loading dose : colchicine 0.6 mg at onset of gout, repeat every hour until 1 of these 3 things happens: The pain resolves, you develop diarrhea, or you have taken 5 tablets Colchicine maintenance dose after this 1st day loading dose you should take 1 tablet twice daily for 10 days to prevent recurrence of this gout attack. Colchicine does not provide long-term prevention of gout Dr. Pepper HAMMOND: Called patient regarding the above message. Patient said she had received Dexamethasone not Colchicine last time. When she spoke to [facility] last time [facility] was going to order the Colchicine but had changed her mind and ordered the Dexamethasone instead. Please advise * Telephone Encounter - Katy Lopes RN - 10/25/2023 9:37 AM CDT STEPHANY: Called patient regarding her gout. She said the gout is back in her R foot, ankle, and toes. The area is not as red but as last time but is slightly red around the R ankle and big toe. It hurts so bad it is hard to walk on it. Denied any swelling but she cannot get her shoe on as easily. She said the ankle is slightly tender to touch. No MACHINE HEEL BUILDER appt today. Patient said she is not sure she could even come in the office because she can't walk well on it. Please advise * Telephone Encounter - Eri Owens - 10/25/2023 8:10 AM CDT Pt states the gout is back in her rt foot and ankle . Pt wants to know if would call in something . [facility]#[phone] patient [facility] documented in this encounter Plan of Treatment [...] on filedocumented in this encounter Care Teams Theater Set Production Designer Relationship Specialty Start Date End Date Pepper Morgan MD PCP - General 09/16/16 Hank Garibay MD [address] [facility] [address] [place] [address] Surgeon Orthopedic Surgery 03/27/17 Jacky Murry MD [address] [facility] [address] [place] [address] Ophthalmology 03/27/17 Puma Mckenzie MD [address] [facility] [address] [place] [address] Surgeon Orthopedic Surgery 07/11/19 Neha Jackson, PT Physical Therapist Physical Therapy 12/01/21 Stalin Arauz MD [address] [facility] [address] [place] [address] Consulting Physician Cardiology 12/08/22 Tiffany Rojas PA [address] [facility] [address] [place] [address] Gastroenterology 12/30/22 Klaus Deshpande MD [address] [facility] [address] [place] [address] Consulting Physician Neurology 06/13/23 documented as of this encounter
--- OUTSIDE RECORDS SUMMARY | 2024-06-18 18:49 | XMS_ITS | Encounter Summary ---
Author Organization [facility] Address [address] [place] [address] Care Team Providers Care Motorcycle Deliverer Name Role Phone Pepper Morgan MD Primary Care Provider [phone]- [phone] Hank Garibay MD Unavailable [phone] Jacky Murry MD Unavailable [phone] Puma Mckenzie MD Unavailable [phone] Neha Jackson PT Unavailable Unavailable Stalin Arauz MD Unavailable [phone] Tiffany Rojas Unavailable [phone] Klaus Deshpande MD Unavailable [phone] Reason for Visit * Reason Onset Date Comments Medication Problem 09/06/2023 Encounter Details Date Type Department Care Team (Late st Contact Info) Description 09/06/2023 Telephone [facility] [address] [id number] Pepper Morgan MD [address] [address] Medication Problem Social History Tobacco Use Types Packs/Day Years Used Date Smoking Tobacco: Former Cigarettes 2 30 1 952 - 1982 Smokeless Tobacco: Never Alcohol Use Standard Drinks/Week Comments Not Currently 0 (1 standard drink = 0.6 oz pur e alcohol) [facility] Utilities Answer Date Recorded [...] often do you attend chur ch or orthodoxy services? Never 07/24/2023 Do you belong to any clubs o r organizations such as religious groups, unions, fraternal or athletic groups, or [...] making you feel afraid or unsafe? 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 Do not swallow. 60 each 4 09/06/2023 11/27/2023 documented in this encounter Miscellaneous Notes * Telephone Encounter - Lacie Alicea MA - 09/06/2023 9:30 AM CDT Refill sent to [facility] * Telephone Encounter - Corazon Sullivan - 09/06/2023 8:20 AM CDT Needs refill for Advair - she is out [facility] documented in this encounter Plan of Treatment Not on file documented as of this encounter Goals Goal Patient Goal Type Associated Problems Recent Progress Patient-Stated? Author [facility] Behavioral [facility] Improving( 3:34 PM CDT) Domitila Gasotn, RN Note: Patient will establish a comfort-function goal and identify the pain level that will allow the patient to perform desired activities and achieve an acceptable quality of life. documented as of this encounter Visit Diagnoses Not on filedocumented in this encounter Discontinued Medications Medication Sig Discontinue Reason Start Date End Da te fluticasone propion-salmeteroL (ADVAIR DISKUS) 100-50 mcg/dose diskus inhaler Inhale 1 puff 2 (two) times a day Rinse mouth with water after use. Do not swallow. Reorder 03/09/2023 09/06/2023 documented as of this encounter Care Teams Motorcycle Deliverer Relationship Specialty Start Date End Date Pepper Morgan MD PCP - General 09/16/16 Hank Garibay MD [address] [facility] [address] [place] [address] Surgeon Orthopedic Surgery 03/27/17 Jacky Murry MD [address] [facility] [address] [place] [address] Ophthalmology 03/27/17 Puma Mckenzie MD [address] [facility] [address] [place] [address] Surgeon Orthopedic Surgery 07/11/19 Neha Jackson, PT Physical Therapist Physical Therapy 12/01/21 Stalin Arauz MD [address] [facility] [address] [place] [address] Consulting Physician Cardiology 12/08/22 Tiffany Rojas PA [address] [facility] [place] [address] Gastroenterology 12/30/22 Klaus Deshpande MD [address] [facility] [place] [address] Consulting Physician Neurology 06/13/23 documented as of this encounter
--- OUTSIDE RECORDS SUMMARY | 2024-06-18 18:49 | XMS_ITS | Encounter Summary ---
Author Organization [facility] Healthcare Address [address] [place] [address] Care Team Providers Care Comic Book Artist Name Role Phone Pepper Morgan MD Primary Care Provider + [phone] Hank Garibay MD Unavailable [phone] Jacky Murry MD Unavailable [phone] Puma Mckenzie MD Unavailable [phone] Neha Jackson PT Unavailable Unavailable Stalin Arauz MD Unavailable [phone] Tiffany Rojas Unavailable [phone] Klaus Deshpande MD Unavailable [phone] Reason for Visit * Reason Comments Follow-up Encounter Details Date Type Department Care Team (Late st Contact Info) Description 11/27/2023 12:00 PM CDT Office Visit [facility] [place] [facility] [address] [place] [phone] Pepper Morgan MD [address] [id number] 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 (Primary Dx); Esophageal dysphagia; Acute on chronic heart failure with preserved ejection fraction (CMS/HCC) (HCC); Gouty arthritis of foot; Muscle cramps; Restless legs syndrome; 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; Encounter for medication monitoring Social History Tobacco Use Types Packs/Day Years Used Date Smoking Tobacco: Former Cigarettes 2 30 1981 Smokeless Tobacco: Never Alcohol Use Standard Drinks/Week Comments Not Currently 0 (1 standard drink = 0.6 oz pur e alcohol) [facility] Utilities Answer Date Recorded In the [...] often do you attend chur ch or temple services? Never 07/24/2023 Do you belong to any clubs o r organizations such as yazidi groups, unions, fraternal or athletic groups, or [...] place to sleep or slept in a correction (including now)? No 07/24/2023 Personal Safety Answer Date Recorded Have you ever been in or are you currently in a harmful physical or emotional relationship or is someone making you feel afraid or unsafe? 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 Gender Identity Not on file Sexual Orientation Not on file Occupation Industry Job Start Date Job End Date retired Not on file Not on file Not on file documented as of this encounter Last Filed Vital Signs Vital Sign Reading Time Taken Comments Blood Pressure 110/60 11/27/2023 12:47 PM CDT Pulse 100 11/27/2023 12:47 PM CDT Temperature 36.5 ??C (97.7 ??F) 11/27/2023 12:47 PM C DT Respiratory Rate 22 11/27/2023 12:47 PM CDT Oxygen Saturation 99% 11/27/2023 12:47 PM CDT Inhaled Oxygen Concentration - - Weight 81.6 kg (180 lb) 11/27/2023 12:47 PM CDT Height - - Body Mass Index 34.01 10/27/2023 11:01 AM CDT documented in this encounter Patient Instructions * Patient Instructions* Pepper Morgan MD - 11/27/2023 12:00 PM CDT Tess Mathewwmake to review this After Visit Summary ( AVS ) for accuracy & contact us if you find need for changes. == ORDERS FOR AMS STAFF TO ARRANGE: 1. Refer to Dr. Arauz office this week with him or his nurse practitioner to taper back on metolazone and potassium. She was doing much better with HFpEF in his feeling very dry. 2. Labs for one-month follow-up with Dr. Morgan = renal panel, uric acid level = gout medication monitoring MEDICATION CHANGES RECOMMENDED TODAY: Start allopurinol 100 mg daily with recheck labs before one-month follow-up to continue titration Keep colchicine tablet twice daily to prevent precipitation of gout The MEDICATION LIST that your providers BELIEVE YOU ARE TAKING The Complete MEDICATION LIST at conclusion of visit 11/27/2023 Current Outpatient Medications: albuterol HFA, 2 puff, inhalation, Q6H PRN allopurinoL, 100 mg, oral, Before breakfast aspirin, 81 mg, oral, Daily carvediloL, 6.25 mg, oral, BID with meals (bkfst, dinner) (Patient not taking: Reported on 10/26/2023) cetirizine, 10 mg, oral, Nightly cholecalciferol, 2,000 Units, oral, Daily colchicine, 0.6 mg, oral, BID PRN empagliflozin, 10 mg, oral, Daily fluticasone propion-salmeteroL, 1 puff, inhalation, Daily furosemide, 40 mg, oral, BID metOLazone, 5 mg, oral, Daily ondansetron ODT, 4 mg, oral, Q8H PRN pantoprazole DR, 40 mg, oral, Daily polyethylene glycol, 17 g, oral, Daily PRN potassium chloride ER, 40 mEq, oral, BID (Patient taking differently: 40-80 mEq, oral, 2 times daily, 80 meq in the morning 40 meq in the evening) pramipexole, 0.5 mg, oral, BID propranoloL, 20 mg, oral, BID PRN (Patient taking differently: 20 mg, oral, Daily) rivaroxaban, 20 mg, oral, Daily (Patient taking differently: 20 mg, oral, Daily with lunch) spironolactone, 25 mg, oral, Daily HOME SAFETY I recommend installing MOTION ACTIVATED [...] Consulting Physician (Neurology) Primary Pharmacy/DME suppliers: [id number], [place] - [address] [facility] [address] Please inform us if you have a change before follow-up visit For further INTERNET RESEARCH on your medical concerns: I recommend [email or web address] = the [employer] Mobile library of medicine online site. This is a consistently reliable site for your personal medical research. documented in this encounter Ordered Prescriptions Prescription Sig Dispense Quantity Refills Last Filled Start Date End Date fluticasone propion-salmeteroL (ADVAIR DISKUS) 100-50 mcg/dose diskus inhaler Inhale 1 puff daily Rinse mouth with water after use. Do not swallow. 11/27/2023 4 allopurinoL (ZYLOPRIM) 100 mg tabletIndications: Gouty arthritis of foot Take 1 tablet (100 mg total) by mouth daily before breakfast 100 tablet 1 11/27/2023 4 documented in this encounter Progress Notes * Pepper Morgan MD - 11/27/2023 12:00 PM CDT Images from the original note were not included. Patient ID: Tess Benedict is a 88 y.o. female. Tess Benedict presents for follow-up gout, esophageal dysphagia, HFpEF, muscle cramps. PLAN : ORDERS TO BE REVIEWED WITH her AT FOLLOW-UP VISIT: Return in about 4 weeks (around 12/25/2023) for Gout arthritis and medication adjustment. . Orders successfully placed before signing the note: Orders Placed This Encounter Procedures Renal function panel Uric acid MEDICATION CHANGES AND REFILL MANAGEMENT: medication list at conclusion of this encounter: Current Outpatient Medications: albuterol HFA, 2 puff, inhalation, Q6H PRN allopurinoL, 100 mg, oral, Before breakfast aspirin, 81 mg, oral, Daily carvediloL, 6.25 mg, oral, BID with meals (bkfst, dinner) (Patient not taking: Reported on 10/26/2023) cetirizine, 10 mg, oral, Nightly cholecalciferol, 2,000 Units, oral, Daily colchicine, 0.6 mg, oral, BID PRN empagliflozin, 10 mg, oral, Daily fluticasone propion-salmeteroL, 1 puff, inhalation, Daily furosemide, 40 mg, oral, BID metOLazone, 5 mg, oral, Daily ondansetron ODT, 4 mg, oral, Q8H PRN pantoprazole DR, 40 mg, oral, Daily polyethylene glycol, 17 g, oral, Daily PRN potassium chloride ER, 40 mEq, oral, BID (Patient taking differently: 40-80 mEq, oral, 2 times daily, 80 meq in the morning 40 meq in the evening) pramipexole, 0.5 mg, oral, BID propranoloL, 20 mg, oral, BID PRN (Patient taking differently: 20 mg, oral, Daily) rivaroxaban, 20 mg, oral, Daily (Patient taking differently: 20 mg, oral, Daily with lunch) spironolactone, 25 mg, oral, Daily HPI - ASSESSMENT & DIFFERENTIAL DIAGNOSIS 1. 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 RESOLVED 2. Esophageal dysphagia RESOLVED Problem resolved no longer requiring medicine taking with Jello sq to avoid these symptoms 3. Acute on chronic heart failure with preserved ejection fraction (CMS/HCC) (HCC) CHRONIC IMPROVED Dramatic improvement with Jardiance metolazone Aldactone potassium combination. I do not know how she is tolerating all this without hyperkalemia but she was doing great. She feels very dry in his referred back to Cardiology to see if we can taper back on some of the diuretic 4. Gouty arthritis of foot CHRONIC IMPROVED Dramatic drop in her uric acid level on allopurinol however she stopped the medicines noting severeabdominal pain. This was likely related to constipation which resolved by the use of colchicine. She was ready to go back on Zyloprim and will start again today with labs again in a month allopurinoL (ZYLOPRIM) 100 mg tablet; Take 1 tablet (100 mg total) by mouth daily before breakfast Dispense: 100 tablet; Refill: 1 5. Muscle cramps NEW PROBLEM Muscle cramps likely related to the high dose of diuretic. She was referred to Cardiology to see ifadjustments can be made in her diuretic regimen. Probably needs a magnesium level updated 6. Restless legs syndrome CHRONIC CONTROLLED No med change needed her cramping is not nocturnal 7. 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 CHRONIC CONTROLLED Chronic controlled with medications from cardiology for her HFpEF REVIEW OF SYSTEMS: Review of Systems Constitutional: Positive for activity change and appetite change. Negative for fatigue (dramatic improvement in his sense of well-being since being on the heart failure meds), fever and unexpected weight change. HENT: Negative [...] pain and vaginal discharge. Musculoskeletal: Positive for myalgias (muscle cramps especially in her hands). Negative for arthralgias, gait problem and joint swelling. Skin: Negative for color change and rash. Neurological: Negative for dizziness, weakness and headaches. Hematological: Negative for adenopathy. Does not bruise/bleed easily. Psychiatric/Behavioral: Negative for behavioral problems, dysphoric mood and sleep disturbance. Thepatient is not nervous/anxious. VITAL SIGNS: BP 110/60 (BP Location: Right arm, Patient Position: Sitting) Pulse 100 Temp 36.5 ??C (97.7 ??F) (Temporal) Resp 22 Wt 81.6 kg (180 lb) LMP (LMP Unknown) SpO2 99% BMI 34.01 kg/m?? Body mass index is 34.01 kg/m??. Wt Readings from Last 3 Encounters: 11/27/23 81.6 kg (180 lb) 10/27/23 81.6 kg (180 lb) 10/26/23 82.6 kg (182 lb) PHYSICAL EXAMINATION: Physical Exam Vitals and nursing note reviewed. Constitutional: General: She is not in acute distress. Appearance: Normal appearance. She is well-developed. Comments: She looks fantastic today down to ideal body weight 180 lb. Absolutely no shortness a breath or sense of ill health. No JVD in the upright position. Can talk in long sentences without difficulty HENT: Head: Normocephalic and atraumatic. Right Ear: [...] No thyromegaly. Cardiovascular: Rate and Rhythm: Normal rate and regular rhythm. Heart sounds: Murmur (soft early systolic murmur left lower sternal border in the upright position)heard. No gallop. Pulmonary: Effort: Pulmonary effort is normal. Breath sounds: Normal breath sounds. No wheezing, rhonchi or rales. Abdominal: General: Bowel sounds are normal. There is no distension. Palpations: Abdomen is soft. There is no mass. Tenderness: There is no abdominal tenderness. Hernia: No hernia is present. Musculoskeletal: General: Deformity (arthritic deformity both knees not tender today) present. No tenderness. Cervical back: Neck supple. Right lower leg: No edema (complete resolution of all edema). Left lower leg: No edema. Lymphadenopathy: Cervical: No cervical adenopathy. Skin: General: Skin is warm and dry. Findings: No erythema, lesion (resolution of the acute gout on her foot) or rash. Neurological: General: No focal deficit present. Mental Status: She is alert and oriented to person, place, and time. Mental status is at baseline. Cranial Nerves: No cranial nerve deficit. Motor: No weakness or abnormal muscle tone. Coordination: Coordination normal. Gait: Gait normal. Psychiatric: Mood and Affect: Mood normal. Behavior: Behavior normal. Thought Content: Thought content normal. Judgment: Judgment normal. MOST RECENT LABS: Lab on 11/20/2023 Component Date Value Uric [...] Basophil pct 07/18/2023 0.5 eGFR 07/18/2023 41 Lab on 07/11/2023 Component Date Value Sodium 07/11/2023 138 Potassium, pl 07/11/2023 4.1 Chloride 07/11/2023 99 CO2 07/11/2023 29 Anion gap 07/11/2023 10 BUN 07/11/2023 30 (H) Creatinine 07/11/2023 1.18 (H) Glucose 07/11/2023 95 Calcium 07/11/2023 9.5 eGFR 07/11/2023 45 Lab on 07/05/2023 Component Date Value Sodium 07/05/2023 138 Potassium, pl 07/05/2023 3.8 Chloride 07/05/2023 95 (L) CO2 07/05/2023 34 (H) Anion gap 07/05/2023 8 BUN 07/05/2023 48 (H) Creatinine 07/05/2023 1.28 (H) Glucose 07/05/2023 95 Calcium 07/05/2023 9.5 NT-proBNP 07/05/2023 3,478 (H) eGFR 07/05/2023 41 Lab on 06/30/2023 Component Date Value Sodium 06/30/2023 133 (L) Potassium, pl 06/30/2023 2.7 (Critical) Chloride 06/30/2023 88 (L) CO2 06/30/2023 34 (H) Anion gap 06/30/2023 12 BUN 06/30/2023 88 (H) Creatinine 06/30/2023 2.03 (H) Glucose 06/30/2023 90 Calcium 06/30/2023 9.3 eGFR 06/30/2023 24 Admission on 06/24/2023, Discharged on 06/26/2023 Component Date Value Sodium 06/24/2023 134 (L) Potassium, pl 06/24/2023 3.2 (L) Chloride 06/24/2023 94 (L) CO2 06/24/2023 28 Anion gap 06/24/2023 12 BUN 06/24/2023 34 (H) Creatinine 06/24/2023 1.29 (H) Glucose 06/24/2023 136 Calcium 06/24/2023 9.0 Bilirubin, total 06/24/2023 0.3 Protein, pl 06/24/2023 6.8 Albumin 06/24/2023 3.5 Alk phos 06/24/2023 121 ALT 06/24/2023 12 AST 06/24/2023 17 WBC 06/24/2023 9.4 Hgb 06/24/2023 8.9 (L) Hct 06/24/2023 30.4 (L) Plt 06/24/2023 347 MPV 06/24/2023 9.1 RBC 06/24/2023 4.03 MCV 06/24/2023 75.4 (L) MCH 06/24/2023 22.1 (L) MCHC 06/24/2023 29.3 (L) RDW CV 06/24/2023 16.0 (H) RDW SD 06/24/2023 44.4 NRBC abs 06/24/2023 0.00 Trop T hs 06/24/2023 32 (H) NT-proBNP 06/24/2023 6,550 (H) Influenza A RNA 06/24/2023 Not Detected Influenza B RNA 06/24/2023 Not Detected RSV RNA 06/24/2023 Not Detected COVID-19 RNA 06/24/2023 Not Detected Coronavirus 229E RNA 06/24/2023 Not Detected Coronavirus HKU1 RNA 06/24/2023 Not Detected Coronavirus NL63 RNA 06/24/2023 Not Detected Coronavirus OC43 RNA 06/24/2023 Not Detected Adenovirus DNA 06/24/2023 Not Detected Metapneumovirus RNA 06/24/2023 Not Detected Rhinovirus/Enterovirus R* 06/24/2023 Not Detected Parainfluenza 1 RNA 06/24/2023 Not Detected Parainfluenza 2 RNA 06/24/2023 Not Detected Parainfluenza 3 RNA 06/24/2023 Not Detected Parainfluenza 4 RNA 06/24/2023 Not Detected B. pertussis DNA 06/24/2023 Not Detected B. parapertussis DNA 06/24/2023 Not Detected C. pneumoniae DNA 06/24/2023 Not Detected M. pneumoniae DNA 06/24/2023 Not Detected PT 06/24/2023 16.4 (H) INR 06/24/2023 1.44 (H) aPTT 06/24/2023 37 Neutrophil abs 06/24/2023 7.6 (H) Imm gran abs 06/24/2023 0.1 Lymphocyte abs 06/24/2023 0.8 Monocyte abs 06/24/2023 0.6 Eosinophil abs 06/24/2023 0.3 Basophil abs 06/24/2023 0.1 Neutrophil pct 06/24/2023 80.8 Imm gran pct 06/24/2023 0.9 Lymphocyte pct 06/24/2023 8.1 Monocyte pct 06/24/2023 6.2 Eosinophil pct 06/24/2023 3.5 Basophil pct 06/24/2023 0.5 Trop T hs 06/24/2023 23 (H) Trop T hs delta 06/24/2023 -9 Trop T hs interp 06/24/2023 Equivocal Sepsis Lactate 06/24/2023 2.2 (H) eGFR 06/24/2023 41 Sepsis Lactate 06/24/2023 0.9 Report 06/24/2023 Value:Final Report: No growth Report 06/24/2023 Value:Final Report: No growth Color, ur 06/25/2023 Yellow Clarity, ur 06/25/2023 Clear Specific gravity, ur 06/25/2023 1.013 pH, urine 06/25/2023 5.0 Protein, ur ql 06/25/2023 Negative Glucose, ur ql 06/25/2023 3+ (A) Ketones, ur 06/25/2023 Negative Bilirubin, ur 06/25/2023 Negative Blood, ur 06/25/2023 Negative Urobilinogen, ur 06/25/2023 <2.0 Nitrite, ur 06/25/2023 Negative Leukocyte esterase, ur 06/25/2023 1+ (A) UA reflex comment 06/25/2023 Reflex to microscopic UA will be performed. WBC 06/26/2023 7.6 Hgb 06/26/2023 9.9 (L) Hct 06/26/2023 33.3 (L) Plt 06/26/2023 396 MPV 06/26/2023 8.9 (L) RBC 06/26/2023 4.50 MCV 06/26/2023 74.0 (L) MCH 06/26/2023 22.0 (L) MCHC 06/26/2023 29.7 (L) RDW CV 06/26/2023 16.3 (H) RDW SD 06/26/2023 43.8 NRBC abs 06/26/2023 0.00 Sodium 06/26/2023 133 (L) Potassium, pl 06/26/2023 3.7 Chloride 06/26/2023 90 (L) CO2 06/26/2023 30 Anion gap 06/26/2023 13 BUN 06/26/2023 43 (H) Creatinine 06/26/2023 1.53 (H) Glucose 06/26/2023 160 Calcium 06/26/2023 9.6 WBC, ur 06/25/2023 6-10 (A) RBC, ur 06/25/2023 0-2 Epithelial cells, squamo* 06/25/2023 1-5 Mucous, ur 06/25/2023 Present (A) Hyaline casts, ur 06/25/2023 6-10 Culture Reflex Comment 06/25/2023 Reflex conditions for urine culture (WBC >10) not met. eGFR 06/26/2023 33 There may be more visits with results that are not included. Any Patient specific educational requests are printed [...] THE CODE REVIEW TEAM == ICD-10-CM 1. 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 K20.80 T50.3X5A 2. Esophageal dysphagia R13.19 3. Acute on chronic heart failure with preserved ejection fraction (CMS/HCC) (HCC) I50.33 4. Gouty arthritis of foot M10.9 allopurinoL (ZYLOPRIM) 100 mg tablet Renal function panel Uric acid 5. Muscle cramps R25.2 6. Restless legs syndrome G25.81 7. 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 I10 8. Encounter for medication monitoring Z51.81 Renal function panel Uric acid documented in this encounter Miscellaneous Notes * Addendum Note - Tasha Jin - 11/27/2023 12:00 PM CDTAddended by: TASHA JIN on: 12/29/2023 08:20 AM Modules accepted: Orders documented in this [...] as of this encounter Results * (ABNORMAL) Renal function panel (12/29/2023 8:25 AM CDT) Sodium 132(L) 135 - 145 mmol/L Potassium, pl 3.4 3.3 - 4.9 mmol/L [facility] ([place]) Chloride 88(L) 97 - 110 mmol/L [facility] ([place]) CO2 33(H) 22 - 32 mmol/L [facility] ([place]) Anion gap 11 2 - 15 mmol/L [facility] ([place]) BUN 62(H) 6 - 25 mg/dL [facility] ([place]) Creatinine 1.57(H) 0.60 - 1.10 mg/dL [facility] ([place]) [...] 10.3 mg/dL [facility] ([place]) Phosphorus, pl 4.7(H) 2.3 - 4.5 mg/dL [facility] ([place]) Albumin 3.9 3.5 - 5.0 g/dL [facility] ([place]) Blood 12/29/2023 8:25 AM CDT 12/29/2023 8:43 AM CDT Pepper Morgan MD LAB BLOOD ORDERABLES Final Result Performing Organization Address City/[facility]/ZIP Co de Phone Number CHIDI [facility]ANG ([place]) [address] [facility] [place] [address] * (ABNORMAL) Uric acid (12/29/2023 8:25 AM CDT) Uric acid 8.1(H) 2.5 - 7.0 mg/dL Blood 12/29/2023 8:25 AM CDT 12/29/2023 8:43 AM CDT Pepper Morgan MD LAB BLOOD ORDERABLES Final Result Performing Organization Address City/[facility]/ZIP Co de Phone Number [facility] ([place]) [address] [facility] [employer] [place] [address] documented in this encounter Visit Diagnoses Diagnosis 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- Primary Other esophagitis Esophageal dysphagia Dysphagia, pharyngoesophageal phase Acute on chronic heart failure with preserved ejection fraction (CMS/HCC) (HCC) Gouty arthritis of foot Muscle cramps Restless legs syndrome Restless legs syndrome (RLS) 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 Essential hypertension, benign Encounter for medication monitoring Encounter for therapeutic drug monitoring documented in this encounter Discontinued Medications Medication Sig Discontinue Reason Start Date End Da te colchicine (Mitigare) 0.6 mg capsuleIndications:Gou ty arthritis of foot Take 1 capsule (0.6 mg total) by mouth 2 (two) times a day before breakfast and dinner To prevent gout while we start on allopurinol. Begin Sunday November 05, 2023 when all social activities are over 10/26/2023 11/27/2023 cephalexin (KEFLEX) 500 mg capsule Take 1 capsule (500 mg total) by mouth every 12 (twelve) hours Therapy completed 09/26/2023 11/27/2023 allopurinoL (ZYLOPRIM) 100 mg tabletIndications:Gout y arthritis of foot Take 1 tablet (100 mg total) by mouth daily before breakfast Reorder 10/26/2023 11/27/2023 dexAMETHasone (DECADRON) 4 mg tabletIndications:Gout y arthritis of foot Take 1 tablet (4 mg total) by mouth daily as needed (Severe gout pain) Therapy completed 10/26/2023 11/27/2023 fluticasone propion-salmeteroL (ADVAIR DISKUS) 100-50 mcg/dose diskus inhaler Inhale 1 puff 2 (two) times a day Rinse mouth with water after use. Do not swallow. 09/06/2023 11/27/2023 documented as of this encounter Historical Medications * This list may reflect changes made after this encounter. cephalexin (KEFLEX) 500 mg capsule Take 1 capsule (500 mg total) by mouth every 12 (twelve) hours 09/26/2023 11/27/2023 added in this encounter Care Teams Comic Book Artist Relationship Specialty Start Date End Date Pepper Morgan MD PCP - General 09/16/16 Hank Garibay MD [address] [facility] [place] [address] Surgeon Orthopedic Surgery 03/27/17 Jacky Murry MD [address] [facility] [place] [facility] [address] [place] [address] Ophthalmology 03/27/17 Puma Mckenzie MD [address] [facility] [place] [address] Surgeon Orthopedic Surgery 07/11/19 Neha Jackson, PT Physical Therapist Physical Therapy 12/01/21 Stalin Arauz MD [address] [facility] [place] [address] Consulting Physician Cardiology 12/08/22 Tiffany Rojas PA [address] [facility] [place] [address] Gastroenterology 12/30/22 Klaus Deshpande MD [address] [facility] [place] [address] Consulting Physician Neurology 06/13/23 documented as of this encounter
--- OUTSIDE RECORDS SUMMARY | 2024-06-18 18:49 | XMS_ITS | Encounter Summary ---
Author Organization Formerly [facility] Address [address] [place] [address] Care Team Providers Care Field Pipelines Supervisor Name Role Phone Pepper Morgan MD Primary Care Provider + [phone] Hank Garibay MD Unavailable [phone] Jacky Murry MD Unavailable [phone] Puma Mckenzie MD Unavailable [phone] Neha Jackson PT Unavailable Unavailable Stalin Arauz MD Unavailable [phone] Tiffany Rojas Unavailable [phone] Klaus Deshpande MD Unavailable [phone] Encounter Details Date Type Department Care Team (Late st Contact Info) Description 08/31/2023 9:00 AM CDT Office Visit [facility] [address] [place] [address] [address] [place] [address] Klaus Deshpande MD [address] [place] [address] [address] [place] [address] Essential tremor (Primary Dx); Restless legs syndrome; Gait disturbance Social History Tobacco Use Types Packs/Day Years Used Date Smoking Tobacco: Former Cigarettes 2 1 952 - 1981 Smokeless Tobacco: Never Tobacco Cessation:Counseling Given: Not Answered Alcohol Use Standard Drinks/Week Comments Not Currently 0 (1 standard drink = 0.6 oz pur e alcohol) [facility] Utilities Answer Date Recorded In [...] any clubs o r organizations such as protestant groups, unions, fraternal or athletic groups, or [...] on file 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 Gender Identity Not on file Sexual Orientation Not on file Occupation Industry Job Start Date Job End Date retired Not on file Not on file Not on file documented as of this encounter Last Filed Vital Signs Vital Sign Reading Time Taken Comments Blood Pressure 107/73 08/31/2023 9:03 AM CDT Pulse 95 08/31/2023 9:03 AM CDT Temperature - - Respiratory Rate 18 08/31/2023 9:03 AM CDT Oxygen Saturation 95% 08/31/2023 9:03 AM CDT Inhaled Oxygen Concentration - - Weight 83 kg (183 lb) 08/31/2023 9:03 AM CDT Height 152.4 cm (5') 08/31/2023 9:03 AM CDT Body Mass Index 35.74 08/31/2023 9:03 AM CDT documented in this encounter Progress Notes * Klaus Deshpande MD - 08/31/2023 9:00 AM CDT Subjective/Objective Patient ID: Tess Benedict is a 87 y.o. female. Chief Complaint I am seeing this 87 y.o. female in consultation requested by Dr. Pepper Morgan MD for tremor and leg discomfort. HPI Tremor: For details, see 11/11/2022. Since last visit on 05/25/2023, patient was on propranolol 20 mg b.i.d.. it dropped her BP. It was stopped. Her tremor got worse after stopping Propranolol. Cardiology took away one of her other HTN medicine and let her to take Propranolol 2 0 mg once a day. She is on Xarelto. Restless leg syndrome: For details, see 11/11/2022 note Since last visit on 05/25/2023, pramipexole was increased to 0.5 mg/tablets, 1 tablet b.i.d.. it helped. It does not bother her much anymore. She tolerated it well. Gait disturbance: Since last visit on 05/25/2023, patient was referred for physical therapy. It helped. She started towalk outside again, but she started to have right foot pain lately. Suspicious stress fracture vs gout. Workup going on by PCP. Past Medical History: Diagnosis Date Allergic rhinitis [...] Current Outpatient Medications Medication Sig Dispense Refill albuterol HFA (Proventil HFA) 90 mcg/actuation inhaler Inhale 2 puffs every 6 (six) hours as neededfor wheezing or shortness of breath 6.7 g 3 aspirin 81 mg enteric coated tablet Take 1 tablet (81 mg total) by mouth daily cetirizine (ZyrTEC) 10 mg tablet Take 1 tablet (10 mg total) by mouth nightly 90 tablet 3 cholecalciferol (VITAMIN D-3) 2000 unit tablet Take 1 tablet (2,000 Units total) by mouth daily empagliflozin (JARDIANCE) 10 mg tablet Take 1 tablet (10 mg total) by mouth daily 30 tablet 11 fluticasone propion-salmeteroL (ADVAIR DISKUS) 100-50 mcg/dose diskus inhaler Inhale 1 puff 2 (two)times a day Rinse mouth with water after use. Do not swallow. 1 each 4 furosemide (LASIX) 40 mg tablet Take 1 tablet (40 mg total) by mouth 2 (two) times a day 60 tablet 11 metOLazone (ZAROXOLYN) 5 mg tablet Take 1 tablet (5 mg total) by mouth daily 30 tablet 11 ondansetron ODT (ZOFRAN-ODT) 4 mg disintegrating tablet Take 1 tablet (4 mg total) by mouth every 8(eight) hours as needed for nausea or vomiting [address] (PROTONIX) 40 mg EC tablet Take 1 tablet (40 mg total) by mouth daily 90 tablet 2 polyethylene glycol (MIRALAX) 17 gram packet Take 1 packet (17 g total) by mouth daily as needed for constipation potassium chloride ER 20 mEq CR tablet Take 2 tablets (40 mEq total) by mouth 2 (two) times a day (Patient taking differently: Take 2-4 tablets (40-80 mEq total) by mouth 2 (two) times a day 80 meq in the morning 40 meq in the evening) 120 tablet 11 pramipexole (MIRAPEX) 0.5 mg tablet TAKE 1 TABLET BY MOUTH 2 TIMES A DAY. 180 tablet 0 propranoloL (INDERAL) 20 mg tablet Take 1 tablet (20 mg total) by mouth 2 (two) times a day as needed (Tremor) (Patient taking differently: Take 1 tablet (20 mg total) by mouth daily) 180 tablet 2 rivaroxaban (XARELTO) 20 mg tablet Take 1 tablet (20 mg total) by mouth daily (Patient taking differently: Take 1 tablet (20 mg total) by mouth daily with lunch) 30 tablet 11 spironolactone (ALDACTONE) 25 mg tablet Take 1 tablet (25 mg total) by mouth daily 30 tablet 11 carvediloL (COREG) 6.25 mg tablet Take 1 tablet (6.25 mg total) by mouth 2 (two) times a day with meals (Patient not taking: Reported on 08/31/2023) 180 tablet 2 febuxostat (ULORIC) 40 mg tablet Take 1 tablet (40 mg total) by mouth daily (Patient not taking: Reported on 08/31/2023) No current facility-administered medications for this visit. has a current medication list which includes the following prescription(s): albuterol hfa, aspirin,cetirizine, cholecalciferol, empagliflozin, fluticasone propion-salmeterol, furosemide, metolazone,ondansetron odt, pantoprazole dr, polyethylene glycol, potassium chloride er, pramipexole, propranolol, rivaroxaban, spironolactone, carvedilol, febuxostat, and [DISCONTINUED] cyclobenzaprine. Family History Problem Relation Age of Onset Cancer Other Family history of Cancer, unknown; Arthritis Other Family history of Arthritis; Abdominal Aortic Aneurysm Father COPD Father Social History Tobacco Use Smoking status: Former Current packs/day: 0.00 Average packs/day: 2.0 packs/day for 30.0 years (60.0 ttl pk-yrs) Types: Cigarettes Start date: 1949 Quit date: 1981 Years since quittin.2 Smokeless tobacco: Never Substance and Sexual Activity Drug use: Never Sexual activity: Defer Alcohol Use: Not At Risk (12/28/2022) AUDIT-C Frequency of Alcohol Consumption: Monthly or less Average Number of Drinks: 1 or 2 Frequency of Binge Drinking: Never BP 107/73 (BP Location: Right arm, Patient Position: Sitting) Pulse 95 Resp 18 Ht 152.4 cm (5') Wt 83 kg (183 lb) LMP (LMP Unknown) SpO2 95% BMI 35.74 kg/m?? Physical Exam Mental status: alert, speech fluent, comprehension intact, follow command appropriately Cranial nerve: SUSANNA, corneal reflex present. EOMI, VFF by confrontation method. Facial sensations symmetrical. Face symmetrical. Motor: bulk normal, tone normal, pronator drift negative. Strength 5/5. Moderate posture tremor of hands. Sensation: LT Normal and symmetrical. Gait: could walk independently. Need somebody to secure her from falling. slightly wobbly. Speed isslightly slow. 3-4 steps to turn. Feet lifting slightly low. DTRs: Knee and ankle absent. Assessment/Plan I am seeing this 87 y.o. female for tremor and leg discomfort. Tremor: Physical examination showed mild posture tremor of hands suggestive of essential tremor. Hehas been on Xarelto which has interaction with primidone. No evidence of Parkinson's disease. Discomfort of legs: Consistent with restless leg syndrome. She responded to pramipexole. Gait disturbance: Most likely has something to do with her obesity on the background of bilateral hip and knee replacement, as well as aging. No evidence of Parkinson's disease. Diagnoses and all orders for this visit: Gait disturbance (Primary) - encouraged patient to keep physically active Essential tremor - recommend patient to use weighted pen and utensils - continue propranolol 20 mg b.i.d. Restless legs syndrome - continue pramipexole 0.5 mg/tablet, 1 tablet b.i.d. - discussed side effect including sudden sleep attack and impulse control problem. Instructed patient to call if she experiences any side effect. Past investigations: 1. 09/15/2021 CT of head [...] as of this encounter Visit Diagnoses Diagnosis Essential tremor- Primary Restless legs syndrome Restless legs syndrome (RLS) Gait disturbance Abnormality of gait documented in this encounter Historical Medications * This list may reflect changes made after this encounter. febuxostat (ULORIC) 40 mg tablet Take 1 tablet (40 mg total) by mouth daily 08/03/2023 10/26/2023 added in this encounter Care Teams Field Pipelines Supervisor Relationship Specialty Start Date End Date Pepper Morgan MD PCP - General 09/16/16 Hank Garibay MD [address] [facility] [address] [place] [address] Surgeon Orthopedic Surgery 03/27/17 Jacky Murry MD [address] [facility] [address] [place] [address] Ophthalmology 03/27/17 Puma Mckenzie MD [address] [facility] [address] [place] [address] Surgeon Orthopedic Surgery 07/11/19 Neha Jackson, PT Physical Therapist Physical Therapy 12/01/21 Stalin Arauz MD [address] [facility] [address] [place] [address] Consulting Physician Cardiology 12/08/22 Tiffany Rojas PA [address] [facility] [address] [place] [address] Gastroenterology 12/30/22 Kluas Deshpande MD [address] [facility] [place] [address] Consulting Physician Neurology 06/13/23 documented as of this encounter
--- OUTSIDE RECORDS SUMMARY | 2024-06-18 18:49 | XMS_ITS | Encounter Summary ---
Author Organization [facility] Address [address] [place] [address] Care Team Providers Care Utility Service Worker Name Role Phone Pepepr Morgan MD Primary Care Provider + [phone] Hank Garibay MD Unavailable [phone] Jacky Murry MD Unavailable [phone] Puma Mckenzie MD Unavailable [phone] Neha Jackson PT Unavailable Unavailable Stalin Arauz MD Unavailable [phone] Tiffany Rojas Unavailable [phone] Klaus Deshpande MD Unavailable [phone] Encounter Details Date Type Department Care Team (Late st Contact Info) Description 11/27/2023 Telephone [facility] [employer] Operator at [address] [place] [phone] Hai Dalton MA Social History Tobacco Use Types Packs/Day Years Used Date Smoking Tobacco: Former Cigarettes 2 30 1 952 - 1982 Smokeless Tobacco: Never Alcohol Use Standard Drinks/Week Comments Not Currently 0 (1 standard drink = 0.6 oz pur e alcohol) [facility] Utilities Answer Date Recorded In the past 12 months has [employer], gas, oil, or water company threatened to [...] attend chur ch or amish services? Never 07/24/2023 Do you belong to any clubs o r organizations such as methodist groups, unions, fraternal or athletic groups, or [...] in a retirement (including now)? No 07/24/2023 Personal Safety Answer Date Recorded Have you ever been in or are you currently in a harmful physical or emotional relationship or is someone making you feel afraid or unsafe? 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 Dr Morgan's office called regarding patients medications and need for ov for med review. Per Dr Morgan's note below: Please advise on med changes or need for ov. Tess Mathewwmake to review this After Visit [...] Daily colchicine, 0.6 mg, oral, BID PRN dexAMETHasone, 4 mg, oral, Daily PRN empagliflozin, 10 mg, oral, Daily fluticasone propion-salmeteroL, 1 puff, inhalation, BID furosemide, 40 mg, oral, BID metOLazone, 5 mg, oral, Daily ondansetron ODT, 4 mg, oral, Q8H PRN pantoprazole DR, 40 mg, oral, Daily polyethylene glycol, 17 g, oral, Daily PRN potassium chloride ER, 40 mEq, oral, BID (Patient taking differently: 40-80 mEq, oral, 2 times daily, 80 meq in the [id number] meq in the evening) pramipexole, 0.5 mg, [...] Consulting Physician (Neurology) Primary Pharmacy/DME suppliers: [facility] [address] [place], [place] - [address] [facility] [address] [facility] [address] Please inform us if you have a change before follow-up visit For further INTERNET RESEARCH on your medical concerns: I recommend [email or web address] = the [employer] library of medicine online site. This is a consistently reliable site for your personal medical research. documented in this encounter Plan of Treatment Not on file documented as of this encounter Goals Goal Patient Goal Type Associated Problems Recent Progress Patient-Stated? Author -Pain Behavioral Health Improving( 3:34 PM CDT) Domitila Gaston RN Note: Patient will establish a comfort-function goal and identify the pain level that will allow the patient to perform desired activities and achieve an acceptable quality of life. documented as of this encounter Visit Diagnoses Not on filedocumented in this encounter Care Teams Utility Service Worker Relationship Specialty Start Date End Date Pepper Morgan MD PCP - General 09/16/16 Hank Garibay MD [address] [place] [address] [address] [facility] [address] [place] [address] Surgeon Orthopedic Surgery 03/27/17 Jacky Murry MD [address] [place] [address] [address] [facility] [address] [place] [address] Ophthalmology 03/27/17 Puma Mckenzie MD [address] [facility] [place] [facility] [address] [facility] [address] [place] [address] Surgeon Orthopedic Surgery 07/11/19 Neha Jackson, PT Physical Therapist Physical Therapy 12/01/21 Stalin Arauz MD [address] [facility] [place] [facility] [address] [place] [address] Consulting Physician Cardiology 12/08/22 Tiffany Rojas PA [address] [facility] [place] [facility] [address] [place] [address] Gastroenterology 12/30/22 Klaus Deshpande MD [address] [facility] [place] [facility] [address] [place] [address] Consulting Physician Neurology 06/13/23 documented as of this encounter
--- OUTSIDE RECORDS SUMMARY | 2024-06-18 18:49 | XMS_ITS | Encounter Summary ---
Author Organization [facility] Address [address] [place] [address] Care Team Providers Care Multifocal Button Inspector Name Role Phone Pepper Morgan MD Primary Care Provider +[phone] Hank Garibay MD Unavailable [phone] Jacky Murry MD Unavailable [phone] Puma Mckenzie MD Unavailable [phone] Neha Jackson PT Unavailable Unavailable Stalin Arauz MD Unavailable [phone] Tiffany Rojas Unavailable [phone] Klaus Deshpande MD Unavailable [phone] Reason for Visit * Reason Onset Date Comments Nausea 12/11/2023 Encounter Details Date Type Department Care Team (Late st Contact Info) Description 12/11/2023 Telephone [facility] [address] [place] [address] Pepper Morgan MD [address] [facility] [address] [place] [address] Nausea Social History Tobacco Use Types Packs/Day Years Used Date Smoking Tobacco: Former Cigarettes 2 30 1 952 - 1981 Smokeless Tobacco: Never Alcohol Use Standard Drinks/Week Comments Not Currently 0 (1 standard drink = 0.6 oz pur e alcohol) [facility] Utilities Answer Date Recorded In [...] often do you attend chur ch or quaker services? 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 She voiced understanding to stop colchicine and restart her Allopurinol at her previous dosage. She confirmed she had been on 100 mg daily. Patient voiced understanding not to take the febuxostat. She denied any questions. * Telephone Encounter - Katy Lopes RN - 12/13/2023 9:30 AM CDT Consulted with Dr. Morgan and verbal orders received: Stop Colchicine Go back on Allopurinol previous dosage Hold off taking the Febuxostat Left message to return call. Called Bill at [facility] and asked him to put the Febuxostat on file for now and he voiced understanding. * Telephone Encounter - Katy Lopes RN - 12/13/2023 9:11 AM CDT TOKMS: Patient returned the call and said for 90 days of the Febuxostat it would be over $160 and she cannot afford that. This nurse checked [facility] and notified her that she can get 30 tabs for $25.95 and patient said she should be able to do that. Checked with [facility] in [place] and spoke to Bill and he agreed that [facility] can be applied to her RX.Patient can do 30 or 90 days. Called patient and notified her and she will call the pharmacy and order 30 days. Patient asked if she should still take the Colchicine? Please advise * Telephone Encounter - Katy Lopes RN - 12/13/2023 8:52 AM CDT Images from the original note were not included. December 12, 2023 Pepper Morgan MD to [facility] Im/Fm Staff Pool 12/12/23 10:00 PM Understood. Stay off of the allopurinol. Will document that she can not tolerate the medicine. Febuxostat 40 mg daily will be necessary to replace the allopurinol and to prevent recurrence of gout. This is unfortunate because it is more expensive but it is her only option to keep this problem under control I sent [facility] Dr. Pepper Morgan Called patient and notified her of above message. She voiced understanding. Patient said she is not sure she can take the Fubuxostat medicine due to the cost. Patient said she has still been taking the colchicine and is still having the nausea. She said she can hardly eat. She has been taking Zofran and it only helps for a little while. Her weight has come down to 175#. She was 176# yesterday. Advised patient to call the pharmacy to check on the cost of the Febuxostat and let our office knowif she is unable to pay for it. She voiced understanding and will call back. * Telephone Encounter - Katy Lopes RN - 12/11/2023 2:43 PM CDT TOKMS: Called patient regarding the nausea. Patient said she was sick all weekend and would vomit every time she would eat something. Nausea medicine has been helping the nausea. Today she has been able to eat and keep the food down. Starting on Monday she was constipated but then ended up with diarrhea although she had taken a laxative to help her and is better now. Patient said she cannot take the allopurinol and knows it is causing the nausea. She has not taken it since Monday and has been feeling better today. She denied any abdominal pain or fever. Please advise * Telephone Encounter - Jacqueline Plasencia - 12/11/2023 9:07 AM CDT Patient states she is still sick. States she has been taking the nausea medication and it has been helping. States with or without the allopurinol she is still sick. Not sure what may be causing the nausea, vomiting and diarrhea. [phone] documented in this encounter Plan of Treatment [...] Reason Start Date End Da te colchicine (COLCRYS) 0.6 mg tabletIndications:Gout y arthritis of foot Take 1 tablet (0.6 mg total) by mouth 2 (two) times a day as needed (As directed ( [facility]) for Gout medication titration) Side effects 10/29/2023 12/13/2023 documented as of this encounter Care Teams Multifocal Button Inspector Relationship Specialty Start Date End Date Pepper Morgan MD PCP - General 09/16/16 Hank Garibay MD 4 [facility] [address] [place] [address] Surgeon Orthopedic Surgery 03/27/17 Jacky Murry MD 4 [facility] [address] [facility] [address] [place] [address] Ophthalmology 03/27/17 Puma Mckenzie MD 4 [facility] [address] [place] [address] Surgeon Orthopedic Surgery 07/11/19 Neha Jackson, PT Physical Therapist Physical Therapy 12/01/21 Stalin Arauz MD [address] [facility] [address] [place] [address] Consulting Physician Cardiology 12/08/22 Tiffany Rojas PA [address] [facility] [address] [place] [address] Gastroenterology 12/30/22 Klaus Deshpande MD [address] [facility] [address] [place] [address] Consulting Physician Neurology 06/13/23 documented as of this encounter
--- OUTSIDE RECORDS SUMMARY | 2024-06-18 18:49 | XMS_ITS | Encounter Summary ---
Author Organization [facility] Healthcare Address [address] [place] [address] Care Team Providers Care Matting Press Tender Name Role Phone Pepper Morgan MD Primary Care Provider +- [phone] Hank Garibay MD Unavailable [phone] Jacky Murry MD Unavailable [phone] Puma Mckenzie MD Unavailable [phone] Neha Jackson PT Unavailable Unavailable Stalin Arauz MD Unavailable [phone] Tiffany Rojas Unavailable [phone] Klaus Deshpande MD Unavailable [phone] Reason for Visit * Reason Onset Date Comments Gout 11/06/2023 Encounter Details Date Type Department Care Team (Late st Contact Info) Description 11/06/2023 Telephone [facility] [address] [place] [address] Pepper Morgan MD [address] [address] Gout Social History Tobacco Use Types Packs/Day Years Used Date Smoking Tobacco: Former Cigarettes 2 30 1 952 - 1981 Smokeless Tobacco: Never Alcohol Use Standard Drinks/Week Comments Not Currently 0 (1 standard drink = 0.6 oz pur e alcohol) [facility] Utilities Answer Date Recorded In the [...] any clubs o r organizations such as mormon groups, unions, fraternal or athletic groups, or [...] on file 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 Pt voiced understanding and will wait until 11/12 to start taking the allopurinol. Pt had no other questions/concerns. * Telephone Encounter - Grace Vizcarra LPN - 11/08/2023 3:23 PM CDT Images from the original note were not included. Pepper Morgan MD [facility] Staff Pool5 hours ago (9:51 AM) She was just off the dexamethasone now. She needs just a couple more days of the colchicine alone to make sure the joint does not flare before she starts on the allopurinol so yes she needs to wait as previously instructed Dr. Pepper Morgan * Telephone Encounter - Katy Lopes RN - 11/07/2023 4:59 PM CDT TOKMS: Called patient regarding the previous message. Patient said she has been taking colchicine 0.6 mg twice a day but just started it on 11/04 which was only 2 days ago. So far she is tolerating it well but patient does not want to increase the medication at this time. Patient has not started Allopurinol yet because she was told to start it on the 12 of November. She did not have to take Dexamethasone today and voiced understanding not to take it unless she is having a flare up. Patient will keep her appt on 11/26 with KMS. Should patient still wait until 11/12 to start the Allopurinol since she just started Colchicine on 11/04? Please advise * Telephone Encounter - Katy Lopes RN - 11/07/2023 4:58 PM CDT Images from the original note were not included. November 06, 2023 Pepper Morgan MD to [facility] Im/Fm Staff Pool 11/06/23 11:13 PM So far so good so these are my recommendations Be sure she has been currently taking colchicine 0.6 twice daily. If she was tolerating that and not having any diarrhea then have her increase this to 0.6 mg tablet3 times daily Continue on allopurinol 100 mg nightly. Judiciously use the dexamethasone --i.e. if she does not have a flare try not to use it and if she needs it go ahead and use it--this will eventually settled down and go away and she will not need dexamethasone long-term.--- Keep uric acid level and follow-up as scheduled titrate the allopurinol * Telephone Encounter - Katy Lopes RN - 11/06/2023 9:26 AM CDT TOKMS: Called patient regarding the Dexamethasone. Patient said at her last visit she was told to take the Dexamethasone prn for gout pain. Patient developed the pain in her R foot and toes last Monday and took the medicine that day. She said the pain was better on Monday but then on Monday pain developed again and she had to take the Dexamethasone again. She said the Dexamethasone does help the pain but does not seem to last a long period of time. Patient has been taking her Colchicine since the . She denied any pain today but said she had some tingling in her toes when she got up. Please advise * Telephone Encounter - Jacqueline Plasencia - 11/06/2023 8:03 AM CDT Patient called stating that she takes the dexamethazone, and her gout gets better and goes away, soshe doesn't take another pill, then two days later it comes back. States this cycle has been going on for the past week. [phone] documented in this encounter Plan of Treatment [...] on filedocumented in this encounter Care Teams Matting Press Tender Relationship Specialty Start Date End Date Pepper Morgan MD PCP - General 09/16/16 Hank Garibay MD [address] [facility] [address] WARNER Sheridan [facility] [address] [place] [address] Surgeon Orthopedic Surgery 03/27/17 Jacky Murry MD [address] [facility] [address] WARN[address] [place] [facility] [address] [place] [address] Ophthalmology 03/27/17 Puma Mckenzie MD [address] [facility] [address] WARNER [place] [facility] [address] [place] [address] Surgeon Orthopedic Surgery 07/11/19 Neha Jackson, PT Physical Therapist Physical Therapy 12/01/21 Stalin Arauz MD [address] [facility] [address] [place] [address] Consulting Physician Cardiology 12/08/22 Tiffany Rojas PA [address] [facility] [address] [place] [address] Gastroenterology 12/30/22 Klaus Deshpande MD [address] [facility] [address] [place] [address] Consulting Physician Neurology 06/13/23 documented as of this encounter
--- OUTSIDE RECORDS SUMMARY | 2024-06-18 18:49 | XMS_ITS | Encounter Summary ---
Author Organization [facility] Healthcare Address [address] [place] [address] Care Team Providers Care Social Work Associate Name Role Phone Pepper Morgan MD Primary Care Provider + [phone] Hank Garibay MD Unavailable [phone] Jacky Murry MD Unavailable [phone] Puma Mckenzie MD Unavailable [phone] Neha Jackson PT Unavailable Unavailable Stalin Arauz MD Unavailable [phone] Tiffany Rojas Unavailable [phone] Klaus Deshpande MD Unavailable [phone] Encounter Details Date Type Department Care Team (Late st Contact Info) Description 10/26/2023 2:30 PM CDT Lab [facility] [address] [place] [id number] Muscle cramps; Heart failure with preserved ejection fraction, unspecified HF chronicity (HCC); Gouty arthritis of foot Social History Tobacco Use Types Packs/Day Years Used Date Smoking Tobacco: Former Cigarettes 2 30 1 952 - 1982 Smokeless Tobacco: Never Alcohol Use Standard Drinks/Week Comments Not Currently 0 (1 standard drink = 0.6 oz pur e alcohol) [facility] Utilities Answer Date Recorded In the past 12 months has th e electric, gas, oil, or water [employer] threatened to shut off services in your [...] any clubs o r organizations such as anabaptism groups, unions, fraternal or athletic groups, or [...] on file 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 Gender Identity Not on file Sexual [...] Priority Date/Time Associated Diagnosis Comments EGFR Routine 10/26/2023 2:27 PM CDT Muscle cramps Heart failure with preserved ejection fraction, unspecified HF chronicity (HCC) DIFFERENTIAL AUTO Routine 10/26/2023 2:2 7 PM CDT Muscle cramps Heart failure with preserved ejection fraction, unspecified HF chronicity (HCC) PRO B-TYPE NATRIURETIC PEPTIDE Routine 10/26/2023 2:27 PM CDT Muscle cramps Heart failure with preserved ejection fraction, unspecified HF chronicity (HCC) CBC WITH AUTO DIFFERENTIAL Routine 10/26/2023 2:27 PM CDT Muscle cramps Heart failure with preserved ejection fraction, unspecified HF chronicity (HCC) URIC ACID Routine 10/26/2023 2:27 PM CDT Gouty arthritis of foot MAGNESIUM Routine 10/26/2023 2:27 PM CDT Muscle cramps Heart failure with preserved ejection fraction, unspecified HF chronicity (HCC) COMPREHENSIVE METABOLIC PANEL Routine 10/26/2023 2:27 PM CDT Muscle cramps Heart failure with preserved ejection fraction, unspecified HF chronicity (HCC) documented in this encounter Results * (ABNORMAL) eGFR (10/26/2023 2:27 PM CDT) [facility] Signature eGFR 33(L) >=60 mL/min/1. 73 m2 Comment: Interpretive Data [...] Current interpretive data was last reviewed 2021. Testing performed by: [address] [address] Blood 10/26/2023 2:27 PM CDT 10/26/2023 9:30 PM CDT Pepper Morgan MD LAB BLOOD ORDERABLES Final Result [address] Department [place] [address] * (ABNORMAL) Differential, auto (10/26/2023 2:27 PM CDT) Neutrophil abs 7.8(H) 1.5 - 6.5 K/cumm Comment:Testing performed by : [address] [address] Imm gran abs 0.1 0.0 - 0.1 K/cumm CERNER Comment:Testing performed by : [address], [address] Lymphocyte abs 1.0 0.8 - 3.3 K/cumm CERNER Comment:Testing performed by : [address] [address] Monocyte abs 0.9(H) 0.2 - 0.8 K/cumm CERNER Comment:Testing performed by : [address] [address] Eosinophil abs 0.2 0.0 - 0.5 K/cumm CERNER Comment:Testing performed by : [address] [address] Basophil abs 0.1 0.0 - 0.1 K/cumm CERNER Comment:Testing performed by : [address] [address] Neutrophil pct 77.8 % CERNER Comment: Interpretive Data Percent cell count reference ranges are not reported, since discordance with absolute values may lead to misinterpretation of CBC data. Current Interpretive Data was last revised on 2017. Testing performed by: [address], [address] Imm gran pct 1.0 % CERNER Comment: Interpretive Data Percent cell count reference ranges are not reported, since discordance with absolute values may lead to misinterpretation of CBC data. Current Interpretive Data was last revised on 2017. Testing performed by: [facility], [address] [place] [address]., [address] Lymphocyte pct 10.3 % CERKAMRON Comment: Interpretive Data Percent cell count reference ranges are not reported, since discordance with absolute values may lead to misinterpretation of CBC data. Current Interpretive Data was last revised on 2017. Testing performed by: [facility], [address] [place] [address]., [address] Monocyte pct 8.5 % CERKAMRON Comment: Interpretive Data Percent cell count reference ranges are not reported, since discordance with absolute values may lead to misinterpretation of CBC data. Current Interpretive Data was last revised on 2017. Testing performed by: [facility], [address] [place] [address]., [address] Eosinophil pct 1.7 % CHIDI Comment: Interpretive Data Percent cell count reference ranges are not reported, since discordance with absolute values may lead to misinterpretation of CBC data. Current Interpretive Data was last revised on 2017. Testing performed by: [address] [address] Basophil pct 0.7 % [facility] Comment: Interpretive Data Percent cell count reference ranges are not reported, since discordance with absolute values may lead to misinterpretation of CBC data. Current Interpretive Data was last revised on 2017. Testing performed by: [address] [address] Blood 10/26/2023 2:27 PM CDT 10/26/2023 9:05 PM CDT us Pepper Morgan MD LAB BLOOD ORDERABLES Final Result CHIDI V[facility]GHAN [address] [facility] Department [place] [address] * (ABNORMAL) CBC with auto differential (10/26/2023 2:27 PM CDT) WBC 10.0(H) 3.8 - 9.9 K/cumm Comment:Testing performed by : [address], [address] Hgb 14.6 11.9 - 15.5 g/dL CERNER CH Comment:Testing performed by : [address], [address] Hct 49.3(H) 35.6 - 45.5 % CERNER CH Comment:Testing performed by : [facility], [address] [place] [address], [address] Plt 400 150 - 400 K/cumm CERNER CH Comment:Testing performed by : [address], [address] MPV 9.5 9.1 - 12.3 fL CERNER CH Comment:Testing performed by : [address], [address] RBC 5.64(H) 3.90 - 5.20 M/cumm CERNER CH Comment:Testing performed by : [address], [address] MCV 87.4 81.3 - 96.4 fL CERNER CH Comment:Testing performed by : [address], [address] MCH 25.9(L) 27.1 - 33.3 pg CERNER CH Comment:Testing performed by : [address], [address] MCHC 29.6(L) 32.3 - 35.7 g/dL CERNER CH Comment:Testing performed by : [address], [address] RDW CV 17.0(H) 11.1 - 14.9 % CERNER CH Comment:Testing performed by : [address], [address] RDW SD 52.6(H) 35.7 - 48.1 fL CERNER CH Comment:Testing performed by : [address], [address] NRBC abs 0.00 0.00 - 0.01 K/cumm CERNER CH Comment:Testing performed by : [address], [address] Blood 10/26/2023 2:27 PM CDT 10/26/2023 9:05 PM CDT us Pepper Morgan MD LAB BLOOD ORDERABLES Final Result Performing Organization Address [facility] Co de Phone Number [facility] [address] [facility] Department [place] [address] * (ABNORMAL) Uric acid (10/26/2023 2:27 PM CDT) Uric acid 11.5(H) 2.5 - 7.0 mg/dL Comment:Testing performed by : [address] [address] Blood 10/26/2023 2:27 PM CDT 10/26/2023 9:05 PM CDT us Pepper Morgan MD LAB BLOOD ORDERABLES Final Result Performing Organization Address [facility] de Phone Number [facility] [address] [facility] Department [place] [address] * (ABNORMAL) Comprehensive metabolic panel (10/26/2023 2:27 PM CDT) Pathologist [facility] Sodium 138 135 - 145 mmol/L Comment:Testing performed by : [facility], [address] [place] [address]., [address] Potassium, pl 4.5 3.3 - 4.9 mmol/L CERNER CH Comment:Testing performed by : [address] [address] Chloride 97 97 - 110 mmol/L CERNER CH Comment:Testing performed by : [address] [address] CO2 31 22 - 32 mmol/L CERNER CH Comment:Testing performed by : [address] [address] Anion gap 10 2 - 15 mmol/L CERNER CH Comment:Testing performed by : [address] [address] BUN 53(H) 6 - 25 mg/dL CERNER CH Comment:Testing performed by : [address] [address] Creatinine 1.54(H) 0.60 - 1.10 mg/dL CERNER CH Comment:Testing performed by : [address], [address] Glucose 85 70 - 199 mg/dL CERNER CH Comment: Interpretive Data Fasting glucose >/= 126 [...] Current interpretive data was last revised 2022. Testing performed by: [address], [address] Calcium 10.7(H) 8.5 - 10.3 mg/dL CERNER CH Comment:Testing performed by : [address], [address] Bilirubin, total 0.2 0.1 - 1.2 mg/dL CERNER CH Comment:Testing performed by : [address], [address] Protein, pl 7.3 6.5 - 8.5 g/dL CERNER CH Comment:Testing performed by : [address], [address] Albumin 3.7 3.5 - 5.0 g/dL CERNER CH Comment:Testing performed by : [address] [address] Alk phos 120 40 - 130 Units/L CERNER CH Comment:Testing performed by : [address], [address] ALT 18 7 - 45 Units/L CERNER CH Comment:Testing performed by : [address], [address] AST 28 10 - 45 Units/L CERNER CH Comment:Testing performed by : [address] [place]., [address] Blood 10/26/2023 2:27 PM CDT 10/26/2023 9:05 PM CDT us Pepper Morgan MD LAB BLOOD ORDERABLES Final Result Performing Organization Address [facility] Phone Number [facility] [address] [facility] Department [place] [address] * Magnesium (10/26/2023 2:27 PM CDT) Pathologist [facility] Magnesium 1.8 1.4 - 2.5 mg/dL Comment:Testing performed by : [facility], [address] [place] [address]., [address] Blood 10/26/2023 2:27 PM CDT 10/26/2023 9:05 PM CDT us Pepper Morgan MD LAB BLOOD ORDERABLES Final Result Performing Organization Address [facility] Phone Number [facility] [address] [facility] Department [place] [address] * (ABNORMAL) Pro B-type natriuretic peptide (10/26/2023 2:27 PM CDT) NT-proBNP 2,726(H) <=450 pg/mL Comment: Interpretive Comments: A. Dyspnea [...] 225. Interpretive Data Last Revised Date: 2018. Testing performed by: [facility], [address] [place] [address]., [address] Blood 10/26/2023 2:27 PM CDT 10/26/2023 9:05 PM CDT us Pepper Morgan MD LAB BLOOD ORDERABLES Final Result [facility] [address] [facility] Department [place] [address] documented in this encounter Visit Diagnoses Diagnosis Muscle cramps Heart failure with preserved ejection fraction, unspecified HF chronicity (HCC) Gouty arthritis of foot documented in this encounter Care Teams Social Work Associate Relationship Specialty Start Date End Date Pepper Morgan MD PCP - General 09/16/16 Hank Garibay MD [address] [facility] [address] WARNER Sheridan [facility] [address] [place] [address] Surgeon Orthopedic Surgery 03/27/17 Jacky Murry MD [address] [facility] [address] WARNER [place] [facility] [address] [place] [address] Ophthalmology 03/27/17 Puma Mckenzie MD [address] [facility] [address] WARNER Sheridan [facility] [address] [place] [address] Surgeon Orthopedic Surgery 07/11/19 Neha Jackson, PT Physical Therapist Physical Therapy 12/01/21 Stalin Arauz MD [address] [facility] [address] [place] [address] Consulting Physician Cardiology 12/08/22 Tiffany Rojas PA [address] [facility] [address] [place] [address] Gastroenterology 12/30/22 Klaus Deshpande MD [address] [facility] [address] [place] [address] Consulting Physician Neurology 06/13/23 documented as of this encounter
--- OUTSIDE RECORDS SUMMARY | 2024-06-18 18:49 | XMS_ITS | Encounter Summary ---
Author Organization [facility] Healthcare Address [address] [place] [address] Care Team Providers Care Hooker On Name Role Phone Pepper Morgan MD Primary Care Provider + [phone] Hank Garibay MD Unavailable [phone] Jacky Murry MD Unavailable [phone] Puma Mckenzie MD Unavailable [phone] Neha Jackson PT Unavailable Unavailable Stalin Arauz MD Unavailable [phone] Tiffany Rojas Unavailable [phone] Klaus Deshpande MD Unavailable [phone] Encounter Details Date Type Department Care Team (Late st Contact Info) Description 10/16/2023 Telephone [facility] [address] [place] [phone] Hai Dalton MA Social History Tobacco Use Types Packs/Day Years Used Date Smoking Tobacco: Former Cigarettes 2 30 1 952 - 1981 Smokeless Tobacco: Never Alcohol Use Standard Drinks/Week Comments Not Currently 0 (1 standard drink = 0.6 oz pur e alcohol) [facility] Utilities Answer Date Recorded In the past 12 months has [employer], gas, oil, or water company threatened to [...] often do you attend chur ch or anglican services? Never 07/24/2023 Do you belong to any clubs o r organizations such as orthodoxy groups, unions, fraternal or athletic groups, or [...] place to sleep or slept in a [place] facility (including now)? No 07/24/2023 Personal Safety Answer Date Recorded Have you ever been in or are you currently in a harmful physical or emotional relationship or is someone making you feel afraid or unsafe? 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 documented in this encounter Plan of Treatment [...] on filedocumented in this encounter Care Teams Hooker On Relationship Specialty Start Date End Date Pepper Morgan MD PCP - General 09/16/16 Hank Garibay MD [address] [facility] [address] WARN[address] Sher[place] [facility] [address] [place] [address] Surgeon Orthopedic Surgery 03/27/17 Jacky Murry MD [address] [facility] [address] WARNER [place] [facility] [address] [place] [address] Ophthalmology 03/27/17 Puma Mckenzie MD [address] [facility] [address] WARNER Sheridan [facility] [address] [place] [address] Surgeon Orthopedic Surgery 07/11/19 Neha Jackson, PT Physical Therapist Physical Therapy 12/01/21 Stalin Arauz MD [address] [facility] [address] [place] [address] Consulting Physician Cardiology 12/08/22 Tiffany Rojas PA [address] [facility] [address] [place] [address] Gastroenterology 12/30/22 Klaus Deshpande MD [address] [facility] [address] [place] [address] Consulting Physician Neurology 06/13/23 documented as of this encounter
--- OUTSIDE RECORDS SUMMARY | 2024-06-18 18:49 | XMS_ITS | Encounter Summary ---
Author Organization [facility] Healthcare Address [address] [place] [address] Care Team Providers Care Human Services Assistant Name Role Phone Pepper Morgan MD Primary Care Provider +- [phone] Hank Garibay MD Unavailable [phone] Jacky Murry MD Unavailable [phone] Puma Mckenzie MD Unavailable [phone] Neha Jackson PT Unavailable Unavailable Stalin Arauz MD Unavailable [phone] Tiffany Rojas Unavailable [phone] Klaus Deshpande MD Unavailable [phone] Reason for Visit * Reason Onset Date Comments medication 10/26/2023 Encounter Details Date Type Department Care Team (Late st Contact Info) Description 10/26/2023 Telephone [facility] Medical [facility] [address] [place] [address] Pepper Morgan MD [address] [id number] medication Social History Tobacco Use Types Packs/Day Years Used Date Smoking Tobacco: Former Cigarettes 2 30 1 952 - 1981 Smokeless Tobacco: Never Alcohol Use Standard Drinks/Week Comments Not Currently 0 (1 standard drink = 0.6 oz pur e alcohol) [facility] Utilities Answer Date Recorded In the past [...] any clubs o r organizations such as mandaeism groups, unions, fraternal or athletic groups, or [...] on file 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 She said the original RX was ordered as capsules and she could try tablets with a verbal order. Verbal order given for tablets for the Colchicine and RX was $15 and she will prepare the RX for her. Called patient and notified her and she voiced understanding and said she will picker packer the RX today. * Telephone Encounter - Katy Lopes RN - 10/27/2023 9:48 AM CDT Images from the original note were not included. October 26, 2023 Pepper Morgan MD to Charity [facility] 10/26/23 9:05 PM Call pharmacy and check on this. My experience has been that mitigar = colchicine generic name brand is the generic of colchicine in his like pennies on the dollar where is the name brand colchicine is very expensive--have them check on Good[facility] --check at [facility] check it her what mail-order pharmacy. Somebody's got have this for really cheap. Ask Jordy down at [facility] Dr. Pepper Morgan * Telephone Encounter - Jacqueline Plasencia - 10/26/2023 3:32 PM CDT Patient states she just went to the pharmacy to inquire about the new prescription colchicine 0.6 mg. States this medication is very expensive. Asking for a different medication as a substitute. [phone] documented in this encounter Plan of Treatment [...] on filedocumented in this encounter Care Teams Human Services Assistant Relationship Specialty Start Date End Date Pepper Morgan MD PCP - General 09/16/16 Hank Garibay MD [address] [place] [address] [address] WARNER Sheridan [address] [address] Surgeon Orthopedic Surgery 03/27/17 Jacky Murry MD [address] [place] [address] DR WARNER Sheridan [facility] [address] [place] [address] Ophthalmology 03/27/17 Puma Mckenzie MD [address] [facility] [address] WARNER Sheridan [facility] [address] [place] [address] Surgeon Orthopedic Surgery 07/11/19 Neha Jackson, PT Physical Therapist Physical Therapy 12/01/21 Stalin Arauz MD [address] [facility] [address] [place] [address] Consulting Physician Cardiology 12/08/22 Tiffany Rojas PA [address] [facility] [address] [place] [address] Gastroenterology 12/30/22 Klaus Deshpande MD [address] [facility] [address] [place] [address] Consulting Physician Neurology 06/13/23 documented as of this encounter
--- OUTSIDE RECORDS SUMMARY | 2024-06-18 18:49 | XMS_ITS | Encounter Summary ---
Author Organization [facility] Address [address] [place] [address] Care Team Providers Care Table Assembler Name Role Phone Pepper Morgan MD Primary Care Provider [phone] Hank Garibay MD Unavailable [phone] Jacky Murry MD Unavailable [phone] Puma Mckenzie MD Unavailable [phone] Neha Jackson PT Unavailable Unavailable Stalin Arauz MD Unavailable [phone] Tiffany Rojas Unavailable [phone] Klaus Deshpande MD Unavailable [phone] Encounter Details Date Type Department Care Team (Late st Contact Info) Description 10/16/2023 Orders Only [facility] [address] [place] [id number] Pepper Morgan MD [address] [place] [address] Acute gouty arthritis (Primary Dx); Acute gout involving toe, unspecified cause, unspecified laterality Social History Tobacco Use Types Packs/Day Years Used Date Smoking Tobacco: Former Cigarettes 2 30 1 952 - 1981 Smokeless Tobacco: Never Alcohol Use Standard Drinks/Week Comments Not Currently 0 (1 standard drink = 0.6 oz pur e alcohol) [facility] Utilities Answer Date Recorded In [...] often do you attend chur ch or roman catholic services? 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 Has a flare mid foot with erythema warmth tenderness into the toe. She was on a walker because of the problem. With presumed diagnosis of gout oftenon for years. I have never actually seen this in person when she was had an acute attack. She was laser eye surgery in the morning and can not risk diarrhea from colchicinet Dexamethasone 4 mg tonight then daily for 3 more days at noon time. Call if not improved. Not appropriate for NSAID because of her heart failure. No significant recurrent episodes to warrant daily medication. Will follow uric acid levels. With next labs Dr. Pepper Morgan documented in this encounter [...] of this encounter Visit Diagnoses Diagnosis Acute gouty arthritis- Primary Acute gouty arthropathy Acute gout involving toe, unspecified cause, unspecified laterality documented in this encounter Care Teams Table Assembler Relationship Specialty Start Date End Date Pepper Morgan MD PCP - General 09/16/16 Hank Garibay MD [address] [facility] [address] [place] [address] Surgeon Orthopedic Surgery 03/27/17 Jacky Murry MD [address] [facility] [address] WARNER Sheridan [facility] [address] [place] [address] Ophthalmology 03/27/17 Puma Mckenzie MD [address] [facility] [address] [place] [address] Surgeon Orthopedic Surgery 07/11/19 Neha Jackson, PT Physical Therapist Physical Therapy 12/01/21 Stalin Arauz MD [address] [facility] [address] [place] [address] Consulting Physician Cardiology 12/08/22 Tiffany Rojas PA [address] [facility] [address] [place] [address] Gastroenterology 12/30/22 Klaus Deshpande MD [address] [place] [address] DR KRISHNA[address] [facility] [place] [address] Consulting Physician Neurology 06/13/23 documented as of this encounter
--- OUTSIDE RECORDS SUMMARY | 2024-06-18 18:49 | XMS_ITS | Encounter Summary ---
Author Organization [facility] Healthcare Address [address] [place] [address] Care Team Providers Care Competitive Intelligence Manager Name Role Phone Pepper Morgan MD Primary Care Provider + [phone] Hank Garibay MD Unavailable [phone] Jacky Murry MD Unavailable [phone] Puma Mckenzie MD Unavailable [phone] Neha Jackson PT Unavailable Unavailable Stalin Arauz MD Unavailable [phone] Tiffany Rojas Unavailable [phone] Klaus Deshpande MD Unavailable [phone] Encounter Details Date Type Department Care Team (Late st Contact Info) Description 10/30/2023 Telephone [facility] Medical [facility] [address] [place] [id number] Lusi E [place], RN Social History Tobacco Use Types Packs/Day Years Used Date Smoking Tobacco: Former Cigarettes 2 30 1 95 - 1981 Smokeless Tobacco: Never Alcohol Use Standard Drinks/Week Comments Not Currently 0 (1 standard drink = 0.6 oz pur e alcohol) [facility] Utilities Answer Date Recorded In the past 12 months has [employer], gas, oil, or water company threatened to [...] often do you attend chur ch or mormon services? Never 07/24/2023 Do you belong to any clubs o r organizations such as holiness groups, unions, fraternal or athletic groups, or [...] in a fpc (including now)? No 07/24/2023 Personal Safety Answer Date Recorded Have you ever been in or are you currently in a harmful physical or emotional relationship or is someone making you feel afraid or unsafe? 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 Gender Identity Not on file Sexual Orientation Not on file Occupation Industry Job Start Date Job End Date retired Not on file Not on file Not on file documented as of this encounter Miscellaneous Notes * Telephone Encounter - Luis E Washington RN - 10/30/2023 12:00 PM CDT Spoke to pt et informed of below KMS result message Pt voices understand et declines to use a walker or for a refer to PT or with the foot and ankle center at [place] @ this time pend below appt Pt states she has an appt w/Podiatry Foot [facility] Ank[facility] in [place] on 11-02-23 Pt has no further questions @ this time * Telephone Encounter - Luis E Washington RN - 10/30/2023 10:[address] [facility] Cbn#[phone] * Telephone Encounter - Luis E Washington RN - 10/30/2023 10:11 AM CDT ----- Message from Pepper Morgan MD sent at 10/29/2023 10:19 PM CDT ----- Also no driving until evaluated by the foot and ankle center--and found to be safe to drive with the function of the Right foot and ankle. We are doing this because that foot be not be stable enough to use the brake and the gas. Dr. Pepper Morgan * Telephone Encounter - Luis E Washington RN - 10/30/2023 10:11 AM CDT ----- Message from Pepper Morgan MD sent at 10/29/2023 10:16 PM CDT ----- Her foot and ankle x-rays do not show any findings of gout however her uric acid levels very high in her symptoms are very much gout. She has a unstable ankle and this may be also why she was hurting. I think she needs to visit with the foot and ankle center at [place] with Dr. Akhil ortiz as or Dr. Efren White. Please set up a consultation. In the meantime she would be best to offload the foot using a walker. Ask if she needs to get to physical therapy to learn how to walk with a walker and keep as much pressure off the foot and ankle as possible... Set her up with physical therapy at [facility] if she needs help. Dr. Pepper Morgan documented in this encounter [...] on filedocumented in this encounter Care Teams Competitive Intelligence Manager Relationship Specialty Start Date End Date Pepper Morgan MD PCP - General 09/16/16 Hank Garibay MD 4 [facility] [address] [place] [address] Surgeon Orthopedic Surgery 03/27/17 Jacky Murry MD 4 [facility] [address] [place] [address] Ophthalmology 03/27/17 Puma Mckenzie MD 4 [facility] [address] [place] [address] Surgeon Orthopedic Surgery 07/11/19 Neha Jackson, PT Physical Therapist Physical Therapy 12/01/21 Stalin Arauz MD [address] [facility] [address] [place] [address] Consulting Physician Cardiology 12/08/22 Tiffany Rojas PA 4 [facility] [address] [place] [address] Gastroenterology 12/30/22 Klaus Deshpande MD 4 [facility] [address] [place] [address] Consulting Physician Neurology 06/13/23 documented as of this encounter
--- OUTSIDE RECORDS SUMMARY | 2024-06-18 18:49 | XMS_ITS | Encounter Summary ---
Author Organization [facility] Healthcare Address [address] [place] [address] Care Team Providers Care Manager Business Operations Name Role Phone Pepper Morgan MD Primary Care Provider + [phone] Hank Garibay MD Unavailable [phone] Jacky Murry MD Unavailable [phone] Puma Mckenzie MD Unavailable [phone] Neha Jackson PT Unavailable Unavailable Stalin Arauz MD Unavailable [phone] Tiffany Rojas Unavailable [phone] Klaus Deshpande MD Unavailable [phone] Encounter Details Date Type Department Care Team (Late st Contact Info) Description 12/25/2023 Telephone [place] [employer] at [address] [place] [address] Hai Dalton MA Social History Tobacco Use Types Packs/Day Years Used Date Smoking Tobacco: Former Cigarettes 2 30 1 952 - 1982 Smokeless Tobacco: Never Alcohol Use Standard Drinks/Week Comments Not Currently 0 (1 standard drink = 0.6 oz pur e alcohol) [facility] Utilities Answer Date Recorded In the past 12 months has [employer], gas, oil, or water company threatened to [...] often do you attend chur ch or mosque services? 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 She went back to her normal dose of Lasix 40mg BID. She wants to know if she should takethe increased about of 80mg BID again. Please advise. * Telephone Encounter - Viki Oneal MA - 01/01/2024 9:41 AM CDT Pt called, states she has lost the 4 lbs from last week. * Telephone Encounter - Hai Dalton MA - 12/29/2023 1:25 PM CDT Left message with 's response. Patient to call back with any questions. * Telephone Encounter - Hai Dalton MA - 12/29/2023 8:08 AM CDT Patient called with update and states she is down 3lbs (of the 4 she had gained) since taking the increased dose of lasix for the last 3 days. Please advise on dose you want her to take. * Telephone Encounter - Hai Dalton MA - 12/26/2023 12:43 PM CDT Left patient a message with Dr Cedillo response. * Telephone Encounter - Hai Dalton MA - 12/26/2023 10:00 AM CDT Patient called back stating she had already been taking Lasix 40mg BID. Please advise. * Telephone Encounter - Hai Dalton MA - 12/26/2023 8:48 AM CDT Patient advised * Telephone Encounter - Hai Dalton MA - 12/25/2023 1:44 PM CDT Patient called stating her weight is up 4lbs in the last 5 days. She is on lasix 40mg every day andthinks she on metolazone 5mg every other day. Please advise documented in this encounter Plan of Treatment [...] on filedocumented in this encounter Care Teams Manager Business Operations Relationship Specialty Start Date End Date Pepper Morgan MD PCP - General 09/16/16 Hank Garibay MD 4 [facility] [address] [place] [address] Surgeon Orthopedic Surgery 03/27/17 Jacky Murry MD 4 [facility] [address] [place] [address] Ophthalmology 03/27/17 Puma Mckenzie MD 4 [facility] [address] [place] [address] Surgeon Orthopedic Surgery 07/11/19 Neha Jackson, PT Physical Therapist Physical Therapy 12/01/21 Stalin Arauz MD 2 [facility] [address] [place] [address] Consulting Physician Cardiology 12/08/22 Tiffany Rojas PA 4 [facility] [address] [place] [address] Gastroenterology 12/30/22 Klaus Deshpande MD 4 [facility] [address] [place] [address] Consulting Physician Neurology 06/13/23 documented as of this encounter
--- OUTSIDE RECORDS SUMMARY | 2024-06-18 18:49 | XMS_ITS | Encounter Summary ---
Author Organization [facility] Healthcare Address [address] [place] [address] Care Team Providers Care Primer Powder Blender Wet Name Role Phone Pepper Morgan MD Primary Care Provider +- [phone] Hank Garibay MD Unavailable [phone] Jacky Murry MD Unavailable [phone] Puma Mckenzie MD Unavailable [phone] Neha Jackson PT Unavailable Unavailable Stalin Arauz MD Unavailable [phone] Tiffany Rojas Unavailable [phone] Klaus Deshpande MD Unavailable [phone] Reason for Visit * Reason Onset Date Comments Gout 10/16/2023 Encounter Details Date Type Department Care Team (Late st Contact Info) Description 10/16/2023 Telephone [facility] Medical [facility] [address] [place] [address] Pepper Morgan MD [address] [address] Gout Social History Tobacco Use Types Packs/Day [...] often do you attend chur ch or episcopal services? 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 Gender Identity Not on file Sexual Orientation Not on file Occupation Industry Job Start Date Job End Date retired Not on file Not on file Not on file documented as of this encounter Miscellaneous Notes * Telephone Encounter - Milana Fuentes RN - 10/16/2023 4:57 PM CDT Pt is aware she is to take the colchicine for 5 days watch for diarrhea If pt is no better pt may start the prednisone 20 mg daily Pt verbalized understanding and will call us back with any questions or problems * Telephone Encounter - Milana Fuentes RN - 10/16/2023 4:08 PM CDT Pt states that she needs the colchicine sent in for her gout She is really in a lot of pain * Telephone Encounter - Jacqueline Plasencia - 10/16/2023 1:07 PM CDT Patient states she has gout, states she spoke to Dr. Arauz's office and he suggested an anti-inflammatory (patient doesn't know spelling but something like Caltizine) [phone] documented in this encounter Plan of Treatment [...] on filedocumented in this encounter Care Teams Primer Powder Blender Wet Relationship Specialty Start Date End Date Pepper Morgan MD PCP - General 09/16/16 Hank Garibay MD 4 [facility] [address] [place] [address] Surgeon Orthopedic Surgery 03/27/17 Jacky Murry MD 4 [facility] [address] [place] [address] Ophthalmology 03/27/17 Puma Mckenzie MD 4 [facility] [address] [place] [address] Surgeon Orthopedic Surgery 07/11/19 Neha Jackson, PT Physical Therapist Physical Therapy 12/01/21 Stalin Arauz MD 2 [facility] [address] [place] [address] Consulting Physician Cardiology 12/08/22 Tiffany Rojas PA [address] [facility] [place] [address] Gastroenterology 12/30/22 Klaus Deshpande MD [address] [place] [address] [address] [place] [address] Consulting Physician Neurology 06/13/23 documented as of this encounter
--- OUTSIDE RECORDS SUMMARY | 2024-06-18 18:49 | XMS_ITS | Encounter Summary ---
Author Organization [facility] Healthcare Address [address] [place] [address] Care Team Providers Care Cyber Security Engineer Name Role Phone Pepper Morgan MD Primary Care Provider + [phone] Hank Garibay MD Unavailable [phone] Jacky Murry MD Unavailable [phone] Puma Mckenzie MD Unavailable [phone] Neha Jackson PT Unavailable Unavailable Stalin Arauz MD Unavailable [phone] Tiffany Rojas Unavailable [phone] Klaus Deshpande MD Unavailable [phone] Encounter Details Date Type Department Care Team (Late st Contact Info) Description 10/27/2023 Telephone [facility] Medical Group [facility] [address] [place] [phone] Yvette Zapata, RN Social History Tobacco Use Types Packs/Day Years Used Date Smoking Tobacco: Former Cigarettes 2 30 1 95 - 1981 Smokeless Tobacco: Never Alcohol Use Standard Drinks/Week Comments Not Currently 0 (1 standard drink = 0.6 oz pur e alcohol) [facility] Utilities Answer Date Recorded In the past 12 months has [employer], gas, oil, or water company threatened to [...] often do you attend chur ch or restorationism services? 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 Order changed verbally to tablets and patient is aware cost is $15 and plans to pick it up. * Telephone Encounter - Yvette Zapata RN - 10/27/2023 11:21 AM CDT ----- Message from Pepper Morgan MD sent at 10/26/2023 10:08 PM CDT ----- She called complaining that colchicine was too expensive. This is available in generic as I had already mentioned not a previous note. Keep me posted Super important to get on the colchicine to see if her joints in her kidneys and get the ball rolling on treating this uric acid problem. Very high at 11 with a goal less than [address] Pepper Morgan ----- Message ----- From: Interface, Lab Results In Sent: 10/26/2023 9:39 PM CDT To: Pepper Morgan MD documented in this encounter Plan [...] on filedocumented in this encounter Care Teams Cyber Security Engineer Relationship Specialty Start Date End Date Pepper Morgan MD PCP - General 09/16/16 Hank Garibay MD [address] [facility] [address] WARNER [address] [facility] [address] [place] [address] Surgeon Orthopedic Surgery 03/27/17 Jacky Murry MD [address] [facility] [address] WARNER [address] [facility] [address] [place] [address] Ophthalmology 03/27/17 Puma Mckenzie MD [address] [facility] [address] WARNER [address] [facility] [address] [place] [address] Surgeon Orthopedic Surgery 07/11/19 Neha Jackson, PT Physical Therapist Physical Therapy 12/01/21 Stalin Arauz MD [address] [facility] [address] [place] [address] Consulting Physician Cardiology 12/08/22 Tiffany Rojas PA [address] [facility] [address] [place] [address] Gastroenterology 12/30/22 Klaus Deshpande MD [address] [facility] [place] [address] Consulting Physician Neurology 06/13/23 documented as of this encounter
--- OUTSIDE RECORDS SUMMARY | 2024-06-18 18:49 | XMS_ITS | Encounter Summary ---
Author Organization [facility] Healthcare Address [address] [place] [address] Care Team Providers Care Insurance Representative Name Role Phone Pepper Morgan MD Primary Care Provider + [phone] Hank Garibay MD Unavailable [phone] Jacky Murry MD Unavailable [phone] Puma Mckenzie MD Unavailable [phone] Neha Jackson PT Unavailable Unavailable Stalin Arauz MD Unavailable [phone] Tiffany Rojas Unavailable [phone] Klaus Deshpande MD Unavailable [phone] Encounter Details Date Type Department Care Team (Latest Contact Info) Description 10/26/2023 2:45 PM CDT Ancillary Procedure [facility] [address] [place] [address] Gouty arthritis of foot Social History Tobacco Use Types Packs/Day Years Used Date Smoking Tobacco: Former Cigarettes 2 30 1 95 - 1981 Smokeless Tobacco: Never Alcohol Use Standard Drinks/Week Comments Not Currently 0 (1 standard drink = 0.6 oz pur e alcohol) [facility] Utilities Answer Date Recorded In the past 12 months has [employer], gas, oil, or water [employer] threatened to shut off services in your [...] often do you attend chur ch or restoration services? 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 Gender Identity Not on file Sexual [...] Procedure Name Priority Date/Time Associated Diagnosis Comments XR FOOT RIGHT 3 OR MORE VIEWS Schedule Routine, Read Routine (OP Routine) 10/26/2023 2:40 PM CDT Gouty arthritis of foot XR ANKLE RIGHT 3 OR MORE VIEWS Schedule Routine, Read Routine (OP Routine) 10/26/2023 2:40 PM CDT Gouty arthritis of foot documented in this encounter Results * XR Foot Right 3 or More Views (10/26/2023 2:40 PM CDT) Anatomical Region Laterality Modality Lower Extremities, Foot Right Computed Radiography 10/26/2023 10:2 3 PM CDT Narrative 10/26/2023 10:25 PM CDT EXAM DESCRIPTION: XR ANKLE RIGHT 3 OR MORE VIEWS; XR FOOT RIGHT 3 OR MORE VIEWS REASON FOR STUDY: gout Arthritis ?? Chronic pain lateral right foot ??No h/o trauma or surgery ??; gout arthritis ?? Chronic pain lateral right foot ??No h/o trauma or surgery ? FINDINGS: Three views right ankle and three views right foot nonweightbearing submitted without comparison. There is mild hindfoot varus with moderate ankle osteoarthritis. ??Large posterior recess loose body is present. ??There is a small ankle effusion. ?? Small heel spur is present. ??There is suggestion of moderate pes planovalgus on nonweightbearing exam with polyarticular midfoot osteoarthritis. 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 ??Prior 2nd and 3rd toe arthrodesis are noted. IMPRESSION: Mild right hindfoot varus with moderate ankle osteoarthritis and large posterior recess loose body. Suggestion of moderate right pes planovalgus on nonweightbearing exam with polyarticular midfoot osteoarthritis. 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 THIS IS AN ELECTRONICALLY VERIFIED FINAL REPORT 10/26/2023 10:25 PM - Electronically signed by ??Klaus Reddy M.D. MF: [email or web address] D: ??10/26/2023 10:25 PM T: ??10/26/2023 10:25 PM Report ID: [id number] Reading Location: ??[id number] Procedure Note Klaus Reddy MD - 10/26/2023 EXAM DESCRIPTION: XR ANKLE RIGHT 3 OR MORE VIEWS; XR FOOT RIGHT 3 OR MORE VIEWS REASON FOR STUDY: gout Arthritis Chronic pain lateral right foot No h/o trauma or surgery ; goutarthritis Chronic pain lateral right foot No h/o trauma or surgery FINDINGS: Three views right ankle and three views right foot nonweightbearingsubmitted without comparison. There is mild hindfoot varus with moderate ankle osteoarthritis. Large posterior recess loose body is present. There is a small ankle effusion. Small heel spur is present. There is suggestion of moderate pesplanovalgus on nonweightbearing exam with polyarticular midfoot osteoarthritis. 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 Prior 2nd and 3rd toearthrodesis are noted. IMPRESSION: Mild right hindfoot varus with moderate ankle osteoarthritis and large posterior recess loose body. Suggestion of moderate right pes planovalgus on nonweightbearing examwith polyarticular midfoot osteoarthritis. 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 THIS IS AN ELECTRONICALLY VERIFIED FINAL REPORT 10/26/2023 10:25 PM - Electronically signed by Klaus Reddy M.D. MF: [email or web address] Report ID: [id number] Reading Location: [place] [address] us Pepper Morgan MD IMG XR PROCEDURES Final Re sult * XR Ankle Right 3 or More Views (10/26/2023 2:40 PM CDT) Anatomical Region Laterality Modality Lower Extremities, Ankle Right Compute d Radiography 10/26/2023 10:2 3 PM CDT Narrative 10/26/2023 10:25 PM CDT EXAM DESCRIPTION: XR ANKLE RIGHT 3 OR MORE VIEWS; XR FOOT RIGHT 3 OR MORE VIEWS REASON FOR STUDY: gout Arthritis ?? Chronic pain lateral right foot ??No h/o trauma or surgery ??; gout arthritis ?? Chronic pain lateral right foot ??No h/o trauma or surgery ? FINDINGS: Three views right ankle and three views right foot nonweightbearing submitted without comparison. There is mild hindfoot varus with moderate ankle osteoarthritis. ??Large posterior recess loose body is present. ??There is a small ankle effusion. ?? Small heel spur is present. ??There is suggestion of moderate pes planovalgus on nonweightbearing exam with polyarticular midfoot osteoarthritis. 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 ??Prior 2nd and 3rd toe arthrodesis are noted. IMPRESSION: Mild right hindfoot varus with moderate ankle osteoarthritis and large posterior recess loose body. Suggestion of moderate right pes planovalgus on nonweightbearing exam with polyarticular midfoot osteoarthritis. 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 THIS IS AN ELECTRONICALLY VERIFIED FINAL REPORT 10/26/2023 10:25 PM - Electronically signed by ??Klaus Reddy M.D. MF: [email or web address] D: ??10/26/2023 10:25 PM T: ??10/26/2023 10:25 PM Report ID: [id number] Reading Location: ??[id number] Procedure Note Klaus Reddy MD - 10/26/2023 EXAM DESCRIPTION: XR ANKLE RIGHT 3 OR MORE VIEWS; XR FOOT RIGHT 3 OR MORE VIEWS REASON FOR STUDY: gout Arthritis Chronic pain lateral right foot No h/o trauma or surgery ; goutarthritis Chronic pain lateral right foot No h/o trauma or surgery FINDINGS: Three views right ankle and three views right foot nonweightbearingsubmitted without comparison. There is mild hindfoot varus with moderate ankle osteoarthritis. Large posterior recess loose body is present. There is a small ankle effusion. Small heel spur is present. There is suggestion of moderate pesplanovalgus on nonweightbearing exam with polyarticular midfoot osteoarthritis. 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 Prior 2nd and 3rd toearthrodesis are noted. IMPRESSION: Mild right hindfoot varus with moderate ankle osteoarthritis and large posterior recess loose body. Suggestion of moderate right pes planovalgus on nonweightbearing examwith polyarticular midfoot osteoarthritis. 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 THIS IS AN ELECTRONICALLY VERIFIED FINAL REPORT 10/26/2023 10:25 PM - Electronically signed by Klaus Reddy M.D. MF: [email or web address] Report ID: [id number] Reading Location: [id number] Pepper Morgan MD IMG XR PROCEDURES Final Re sult documented in this encounter Visit Diagnoses Diagnosis Gouty arthritis of foot documented in this encounter Care Teams Insurance Representative Relationship Specialty Start Date End Date Pepper Morgan MD PCP - General 09/16/16 Hank Garibay MD [address] [facility] [address] [place] [address] Surgeon Orthopedic Surgery 03/27/17 Jacky Murry MD [address] [facility] [address] [place] [address] Ophthalmology 03/27/17 Puma Mckenzie MD [address] [facility] [address] [place] [address] Surgeon Orthopedic Surgery 07/11/19 Neha Jackson, PT Physical Therapist Physical Therapy 12/01/21 Stalin Arauz MD [address] [facility] [address] [place] [address] Consulting Physician Cardiology 12/08/22 Tiffany Rojas PA [address] [facility] [address] [place] [address] Gastroenterology 12/30/22 Klaus Deshpande MD [address] [facility] [address] [place] [address] Consulting Physician Neurology 06/13/23 documented as of this encounter
--- OUTSIDE RECORDS SUMMARY | 2024-06-18 18:49 | XMS_ITS | Encounter Summary ---
Author Organization [facility] Healthcare Address [address] [place] [address] Care Team Providers Care Fabrication Specialist Name Role Phone Pepper Mrogan MD Primary Care Provider + [phone] Hank Garibay MD Unavailable [phone] Jacky Murry MD Unavailable [phone] Puma Mckenzie MD Unavailable [phone] Neha Jackson PT Unavailable Unavailable Stalin Arauz MD Unavailable [phone] Tiffany Rojas Unavailable [phone] Klaus Deshpande MD Unavailable [phone] Encounter Details Date Type Department Care Team (Late st Contact Info) Description 11/20/2023 9:30 AM CDT Lab [facility] [address] [place] [phone] Gouty arthritis of foot; 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; Chronic GERD Social History Tobacco Use Types Packs/Day Years Used Date Smoking Tobacco: Former Cigarettes 2 30 1 952 - 1981 Smokeless Tobacco: Never Alcohol Use Standard Drinks/Week Comments Not Currently 0 (1 standard drink = 0.6 oz pur e alcohol) [facility] Utilities Answer Date Recorded In the past 12 months has [employer], gas, oil, or water [employer] threatened to shut off services in your [...] often do you attend chur ch or church services? 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 73 [...] was last reviewed 2021. Testing performed by: [address] [address] Blood 11/20/2023 9:23 AM CDT 11/20/2023 1:07 PM CDT Pepper Morgan MD LAB BLOOD ORDERABLES Final Result [facility] [address] [address] Department [place] [address] * (ABNORMAL) Basic metabolic panel (11/20/2023 9:23 AM CDT) Sodium 134(L) 135 - 145 mmol/L Comment:Testing performed by : [address] [address] Potassium, pl 4.2 3.3 - 4.9 mmol/L [facility] Comment:Testing performed by : [address] [place]., [address] Chloride 95(L) 97 - 110 mmol/L [facility] Comment:Testing performed by : [address] [address] CO2 25 22 - 32 mmol/L [facility] Comment:Testing performed by : [address] [address] Anion gap 14 2 - 15 mmol/L [facility] Comment:Testing performed by : [address], [address] BUN 47(H) 6 - 25 mg/dL [facility] Comment:Testing performed by : [address], [address] Creatinine 1.60(H) 0.60 - 1.10 mg/dL [facility] Comment:Testing performed by : [address], [address] Glucose 100 70 - 199 mg/dL [facility] Comment: Interpretive Data Fasting glucose >/= 126 [...] was last revised 2022. Testing performed by: [address] [address] Calcium 10.0 8.5 - 10.3 mg/dL [facility] Comment:Testing performed by : [address] [address] Blood 11/20/2023 9:23 AM CDT 11/20/2023 12:53 PM CDT us Pepper Morgan MD LAB BLOOD ORDERABLES Final Result [address] Department [place] [address] * (ABNORMAL) Uric acid (11/20/2023 9:23 AM CDT) Uric acid 8.6(H) 2.5 - 7.0 mg/dL Comment:Testing performed by : [facility], [address] [place] [address]., [address] Blood 11/20/2023 9:23 AM CDT 11/20/2023 12:53 PM CDT us Pepper Morgan MD LAB BLOOD ORDERABLES Final Result [facility] [address] [facility] Department of Laboratories [place] [id number] documented in this encounter Visit Diagnoses Diagnosis Gouty arthritis of foot 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 Essential hypertension, benign Chronic GERD documented in this encounter Care Teams Fabrication Specialist Relationship Specialty Start Date End Date Pepper Morgan MD PCP - General 09/16/16 Hank Garibay MD [address] [facility] [address] [place] [address] Surgeon Orthopedic Surgery 03/27/17 Jacky Murry MD [address] [facility] [address] [place] [address] Ophthalmology 03/27/17 Puma Mckenzie MD [address] [facility] [address] [place] [address] Surgeon Orthopedic Surgery 07/11/19 Neha Jackson, PT Physical Therapist Physical Therapy 12/01/21 Stalin Arauz MD [address] [facility] [address] [place] [address] Consulting Physician Cardiology 12/08/22 Tiffany Rojas PA [address] [facility] [place] [address] Gastroenterology 12/30/22 Klaus Deshpande MD [address] [facility] [address] [place] [address] Consulting Physician Neurology 06/13/23 documented as of this encounter
--- OUTSIDE RECORDS SUMMARY | 2024-06-18 18:49 | XMS_ITS | Encounter Summary ---
Author Organization [facility] Healthcare Address [address] [place] [address] Care Team Providers Care Coldfusion Name Role Phone Pepper Morgan MD Primary Care Provider [phone] Hank Garibay MD Unavailable [phone] Jacky Murry MD Unavailable [phone] Puma Mckenzie MD Unavailable [phone] Neha Jackson PT Unavailable Unavailable Stalin Arauz MD Unavailable [phone] Tiffany Rojas Unavailable [phone] Klaus Deshpande MD Unavailable [phone] Encounter Details Date Type Department Care Team (Late st Contact Info) Description 12/12/2023 Orders Only [facility] [address] [place] [phone] Pepper Morgan MD [address] [place] [address] Gouty arthritis of foot (Primary Dx) Social History Tobacco Use Types Packs/Day Years Used Date Smoking Tobacco: Former Cigarettes 2 30 1 952 - 1981 Smokeless Tobacco: Never Alcohol Use Standard Drinks/Week Comments Not Currently 0 (1 standard drink = 0.6 oz pur e alcohol) [facility] Utilities Answer Date Recorded In the past [...] on file 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 Gender Identity Not on file Sexual Orientation Not on file Occupation Industry Job Start Date Job End Date retired Not on file Not on file Not on file documented as of this encounter Ordered Prescriptions Prescription Sig Dispense Quantity Refills Last Filled Start Date End Date febuxostat (ULORIC) 40 mg tabletIndications: Gouty arthritis of foot Take 1 tablet (40 mg total) by mouth daily 30 tablet 11 12/12/2023 01/11/2024 documented in this encounter Progress Notes * Pepper Morgan MD - 12/12/2023 10:00 PM CDT Febuxostat 40 mg daily to replace allopurinol because of nausea and vomiting developing on allopurinol now x2 not resolved despite getting rid of the constipation problem Dr. Pepper Morgan documented in this encounter [...] as of this encounter Visit Diagnoses Diagnosis Gouty arthritis of foot- Primary documented in this encounter Discontinued Medications Medication Sig Discontinue Reason Start Date End Da te allopurinoL (ZYLOPRIM) 100 mg tabletIndications:Gouty arthritis of foot Take 1 tablet (100 mg total) by mouth daily before breakfast Side effects 11/27/2023 12/12/2023 documented as of this encounter Care Teams Coldfusion Relationship Specialty Start Date End Date Pepper Morgan MD PCP - General 09/16/16 Hank Garibay MD [address] [facility] [address] [place] [address] Surgeon Orthopedic Surgery 03/27/17 Jacky Murry MD [address] [facility] [address] [place] [address] Ophthalmology 03/27/17 Puma Mckenzie MD [address] [facility] [address] [place] [address] Surgeon Orthopedic Surgery 07/11/19 Neha Jackson, PT Physical Therapist Physical Therapy 12/01/21 Stalin Arauz MD [address] [facility] [address] [place] [address] Consulting Physician Cardiology 12/08/22 Tiffany Rojas PA [address] [facility] [address] [place] [address] Gastroenterology 12/30/22 Klaus Deshpande MD [address] [facility] [address] [place] [address] Consulting Physician Neurology 06/13/23 documented as of this encounter
--- OUTSIDE RECORDS SUMMARY | 2024-06-18 18:49 | XMS_ITS | Encounter Summary ---
Author Organization [facility] Healthcare Address [address] [place] [address] Care Team Providers Care Forensic Analyst Name Role Phone Pepper Morgan MD Primary Care Provider + [phone] Hank Garibay MD Unavailable [phone] Jacky Murry MD Unavailable [phone] Puma Mckenzie MD Unavailable [phone] Neha Jackson PT Unavailable Unavailable Stalin Arauz MD Unavailable [phone] Tiffany Rojas Unavailable [phone] Klaus Deshpande MD Unavailable [phone] Reason for Referral * Procedure (Routine) - Authorized Specialty Diagnoses / Procedures Referred By Contac t Referred To Contact Diagnoses Osteoarthritis of right glenohumeral joint Complete tear of right rotator cuff, unspecified whether traumatic Procedures Large Joint (Hip, Knee, Shoulder) Injection: R glenohumeral Jadyn Hobson PA [address] [place] [address] [place] [address] Phone: tel: fax: [facility] Medical Group Referral ID Status Reason Start Date Expiration Date V isits Requested Visits Authorized [id number] Authorized 10/27/2023 11/25/2024 1 1 Reason for Visit * Reason Comments Pain Encounter Details Date Type Department Care Team (Late st Contact Info) Description 10/27/2023 11:15 AM CDT Office Visit [facility] Medical Group Orthopedics and Sports Medicine [address] [facility] [address] [place] [id number] Jadyn Hobson PA 4 [facility] [address] [place] [address] Osteoarthritis of right glenohumeral joint (Primary Dx); Complete tear of right rotator cuff, unspecified whether traumatic Social History Tobacco Use Types Packs/Day Years Used Date Smoking Tobacco: Former Cigarettes 2 30 1 - 1981 Smokeless Tobacco: Never Alcohol Use Standard Drinks/Week Comments Not Currently 0 (1 standard drink = 0.6 oz pur e alcohol) [facility] Utilities Answer Date Recorded In the past 12 months has [employer], gas, oil, or water [employer] threatened to shut off services in your [...] week 07/24/2023 How often do you attend [facility] or yazidi services? Never 07/24/2023 Do you belong to any clubs o r organizations such as roman catholic groups, unions, fraternal or athletic groups, [...] on file Legal Sex Female 4:33 AM [employer] Gender Identity Not on file Sexual Orientation Not on file Occupation Industry Job Start Date Job End Date retired Not on file Not on file Not on file documented as of this encounter Last Filed Vital Signs Vital Sign Reading Time Taken Comments Blood Pressure 151/91 10/27/2023 11:01 AM CDT Pulse 99 10/27/2023 11:01 AM CDT Temperature - - Respiratory Rate - - Oxygen Saturation - - Inhaled Oxygen Concentration - - Weight 81.6 kg (180 lb) 10/27/2023 11:01 AM CDT Height 154.9 cm (5' 1 ) 10/27/2023 11:01 AM CDT Body Mass Index 34.01 10/27/2023 11:01 AM CDT documented in this encounter Progress Notes * Jadyn Hobson PA - 10/27/2023 11:15 AM CDTAssociated Order(s): Large Joint (Hip, Knee, Shoulder) Injection: R glenohumeral Post-Procedure Diagnose(s): Osteoarthritis of right glenohumeral joint; Complete tear of right rotator cuff, unspecified whether traumatic Images from the original note were not included. NEW PATIENT VISIT Subjective CHIEF COMPLAINT She had concerns including Pain of the Right Shoulder. HISTORY OF PRESENT ILLNESS 87-year-old female presents with her daughter for evaluation of right shoulder pain. She states thepain started approximately 6 months ago when she was lifting heavy boxes. She also fell in 2022 causing increase in shoulder pain. At that time she went to a local urgent care where radiographs were performed that showed severe glenohumeral osteoarthritis. She presents today due to continued pain. The pain is sharp severe in severity improved with rest it is worsened if she tries to raise her arm with reaching. She is also noticed that she has a difficult time lifting objects due topain. The pain is activity related. She is tried physical therapy and Tylenol in the past for conservative management. This is evaluated as a personal injury. Patient is right-handed. Pain Assessment Pain Assessment: 0-10 Pain Score: 8 Pain Location: Shoulder Pain Orientation: Right PAST MEDCIAL HISTORY She has a past medical history of Allergic rhinitis, Arrhythmia, Arthritis of ankle, Basal cell carcinoma of nose (09/2008), CHF (congestive heart failure) ([facility] ([facility]), Cough, DVT (deep venous thrombosis) ([facility]) ([facility]) (1976), Fibrocystic breast, GERD (gastroesophageal reflux disease), 4, not currently , Heel spur, unspecified laterality, rheumatic fever, OTHER MEDICAL (1991), OTHER MEDICAL, OTHER MEDICAL, OTHER MEDICAL, Hypertension, Joint pain (04/2002), Left foot pain (03/1999), Lymphedema (12/06/2021), Malignant melanoma (HCC), Menopause, Motion sickness, Obesity, PONV (postoperative nausea and vomiting), Restless leg, Right carpal tunnel syndrome, Superficial basalcell carcinoma (2002), and Tobacco use. She has no past medical history of Seizures (HCC), Sleep apnea, or Stroke (HCC). PAST SURGICAL HISTORY She has a past surgical history that includes Breast biopsy (1994); knee arthroscopy (2002); Cholecystectomy (1991); Hand surgery (1975); Other surgical history (1991); Other surgical history (2002);knee arthroscopy; Hernia repair; Replacement total knee (Left, 02/07/2017); Bariatric Surgery (1983); FL Fluoro Guided Injection Hip Right (Right, 04/08/2019); Total hip arthroplasty (Right, 06/2019); FL Fluoro Guided Injection Hip Left (Left, 01/28/2021); Replacement total knee (Right); and Total hip arthroplasty (Left, 11/01/2021). MEDICATIONS She has a current medication list which includes the following prescription(s): albuterol hfa, allopurinol, aspirin, cetirizine, cholecalciferol, colchicine, dexamethasone, empagliflozin, fluticasonepropion-salmeterol, furosemide, metolazone, ondansetron odt, pantoprazole dr, polyethylene glycol, potassium chloride er, pramipexole, propranolol, rivaroxaban, spironolactone, carvedilol, and [DISCONTINUED] cyclobenzaprine. ALLERGIES She is allergic to celecoxib, scopolamine, sulfa (sulfonamide antibiotics), amlodipine, lisinopril,trazodone, duloxetine hcl, cipro [ciprofloxacin hcl], cymbalta [duloxetine], and sinemet [carbidopa-levodopa]. SOCIAL HISTORY She reports that she quit smoking about 42 years ago. Her smoking use included cigarettes. She started smoking about 72 years ago. She has a 60 pack-year smoking history. She has never used smokelesstobacco. She reports that she does not use drugs. Patient reports consuming alcoholic drinks monthly or less, with a daily consumption of drinks. Patient denies daily consumption of 6 or more alcoholic drinks at one occasion. FAMILY HISTORY Her family history includes Abdominal Aortic Aneurysm in her father; Arthritis in an other family member; COPD in her father; Cancer in an other family member. REVIEW OF SYSTEMS Review of Systems Constitutional: Negative for activity change, appetite change, chills, fever and unexpected weight change. HENT: Negative for congestion, dental problem, ear pain, hearing loss, nosebleeds, tinnitus and voice change. Eyes: Negative for pain and visual disturbance. Respiratory: Negative for apnea, cough, chest tightness and shortness of breath. Cardiovascular: Negative for chest pain, palpitations and leg swelling. Gastrointestinal: Negative for blood in stool, constipation, diarrhea, nausea and vomiting. Endocrine: Negative for cold intolerance and heat intolerance. Genitourinary: Negative for difficulty urinating, hematuria and urgency. Musculoskeletal: Positive for arthralgias and myalgias. Skin: Negative for color change, rash and wound. Allergic/Immunologic: Negative for environmental allergies. Neurological: Negative for dizziness, syncope, numbness and headaches. Hematological: Negative for adenopathy. Does not bruise/bleed easily. Psychiatric/Behavioral: Negative for confusion. The patient is not nervous/anxious and is not hyperactive. Objective PHYSICAL EXAM BP 151/91 Pulse 99 Ht 154.9 cm (5' 1 ) Wt 81.6 kg (180 lb) LMP (LMP Unknown) BMI 34.01 kg/m?? C Spine Inspection Kyphosis is present. Right shoulder Inspection Erythema: absent Effusion: absent Swelling: absent Skin temperature: normal AC joint deformity: absent Surgical scar/wound: absent. Scapulothoracic motion: abnormal Posture, chin forward: abnormal Posture, rounded shoulders: abnormal Palpation Tenderness is present. The patient has tenderness in the lateral shoulder, anterior shoulder, posterior shoulder and greater tuberosity area(s). Range of motion The patient has normal range of motion at baseline, but unchanged from baseline. The patient has pain with range of motion of the right shoulder. Strength The patient does not have normal strength at baseline. Neurovascular The patient has normal vascular on the right side of her body. She has normal sensation on the right side of her body. Tests Apprehension: negative Belly press: positive Cross arm: positive Drop arm: negartive Impingement signs: positive Trisha's: positive Neer's: positive [place]'s: negative Speed's: negative Spurling's: negative Left shoulder The patient has normal inspection, palpation, range of motion, strength, and stability of the left shoulder. REVIEW OF X-RAYS/STUDIES/LABS EXAM DESCRIPTION: XR SHOULDER RIGHT 2 OR MORE VIEWS REASON FOR STUDY: pain Pt complains of right anterior shoulder pain for a few weeks. No known injury. Lower mid back pain and after falling last week. No surgery to lumbar or shoulder. TECHNIQUE: 4 radiographic view(s) of the right shoulder . COMPARISON: None FINDINGS: Borderline inferior subluxation of the glenohumeral joint. No definite acute fracture seen. Severe glenohumeral joint osteoarthritis is noted. Moderate acromioclavicular joint osteoarthritis is seen. Trace interstitial opacities within the right lung. IMPRESSION: 1. No gross acute osseous abnormality with severe right shoulder osteoarthritis. THIS IS AN ELECTRONICALLY VERIFIED FINAL REPORT 05/29/2023 11:41 AM - Electronically signed by Hank Rangel M.D. Assessment/Plan Tess was seen today for pain. Diagnoses and all orders for this visit: Osteoarthritis of right glenohumeral joint Complete tear of right rotator cuff, unspecified whether traumatic Other orders - Large Joint (Hip, Knee, Shoulder) Injection Large Joint (Hip, Knee, Shoulder) Injection: R [...] the procedure well with no immediate complications PLAN I reviewed and discussed exam and xray findings in detail with patient. I discussed treatment options to include non-operative management which would consist of physical therapy with or without cortisone injection, NSAIDs/analgesics PRN (if able to take), ice, and heat as tolerated and surgical options with risks and benefits of each. The patient elected to proceed with non-operative management voicing that she has been told by her aquarium specialist that she would not be considered a surgical candidate and she also expresses that she does not want to have surgery. Corticosteroid injection administered into the right shoulder without immediate complication. Patient tolerated procedure well. Post-injection instructions were provided. Advised further conservative management including avoidance ofaggravating factors, ice, heat, NSAIDs, Tylenol, topical analgesic creams. Patient will follow up in 3 months at which time we may repeat injection if symptoms necessitate otherwise she may follow up as needed. I did discuss that she has end-stage osteoarthritis of her glenohumeral joint and that if injection does not improve her symptoms I would recommend referral to pain management for further management options. All questions were answered appropriately. Patient verbalized understanding is ag reeable with this treatment plan. There may be grammatical errors in this note due to use of voice recognition software. TEO Carmichael documented in this encounter Plan [...] Procedure Name Priority Date/Time Associated Diagnosis Comments MS ARTHROCENTESIS ASPIR&/INJ MAJOR JT/BURSA W/O US Routine 10/27/2023 11:15 AM CDT Osteoarthritis of right glenohumeral joint Complete tear of right rotator cuff, unspecified whether traumatic documented in this encounter Results * MS ARTHROCENTESIS ASPIR&/INJ MAJOR JT/BURSA W/O US (10/27/2023 11:15 AM CDT) Narrative Jadyn Hobson PA - 10/27/2023 11:15 AM CDT Jadyn Hobson PA ? 10/27/2023 ??5:00 PM Large Joint (Hip, Knee, Shoulder) Injection: [...] the procedure well with no immediate complications Jadyn BRUCE IN CLINIC/BEDSIDE RADHA IRBY Final [...] mL 3 mL, One-Time Injection, Starting on Mon10/27/23 at 1115, For 1 dose, Indications: Administration of Local AnesthesiaIndications:Admini stration of Local Anesthesia Given 10/27/2023 11:15 AM CDT 3 mL Right Shoulder methylPREDNISolone acetate (DEPO-medrol) injection 80 mg 80 mg, intra-articular, One-Time Injection, Starting on Mon10/27/23 at 1115, For 1 doseIndications:Osteoarthrit is of right glenohumeral joint,Complete tear of right rotator cuff, unspecified whether traumatic Given 10/27/2023 11:15 AM CDT 80 mg Right Shoulder documented in this encounter Care Teams Forensic Analyst Relationship Specialty Start Date End Date Pepper Morgan MD PCP - General 09/16/16 Hank Garibay MD [address] [facility] [address] [place] [address] Surgeon Orthopedic Surgery 03/27/17 Jacky Murry MD [address] [facility] [address] [place] [address] Ophthalmology 03/27/17 Puma Mckenzie MD 4 [facility] [address] [place] [address] Surgeon Orthopedic Surgery 07/11/19 Neha Jackson, PT Physical Therapist Physical Therapy 12/01/21 Stalin Arauz MD [address] [facility] [address] [place] [address] Consulting Physician Cardiology 12/08/22 Tiffany Rojas PA [address] [facility] [address] [place] [address] Gastroenterology 12/30/22 Klaus Deshpande MD [address] [facility] [address] [place] [address] Consulting Physician Neurology 06/13/23 documented as of this encounter
--- OUTSIDE RECORDS SUMMARY | 2024-06-18 18:49 | XMS_ITS | Encounter Summary ---
Author Organization [facility] Address [address] [place] [address] Care Team Providers Care Sample Room Supervisor Name Role Phone Pepper Morgan MD Primary Care Provider + [phone] Hank Garibay MD Unavailable [phone] Jacky Murry MD Unavailable [phone] Puma Mckenzie MD Unavailable [phone] Neha Jackson PT Unavailable Unavailable Stalin Arauz MD Unavailable [phone] Tiffany Rojas Unavailable [phone] Klaus Deshpande MD Unavailable [phone] Reason for Referral * Diagnostic Imaging (Routine) - Authorized Specialty Diagnoses / Procedures Referred By Contac t Referred To Contact Diagnoses Atherosclerosis of [place] arteries of extremities with rest pain, right leg (HCC) Procedures US JONATHAN Stalin Arauz MD [address] [place] [address] [address] Phone: tel: fax: [address] [phone] Referral ID Status Reason Start Date Expiration Date V isits Requested Visits Authorized [id number] Authorized 09/25/2023 10/24/2024 1 1 Reason for Visit * Reason Comments Peripheral Artery Disease Hypertension Claudication Encounter Details Date Type Department Care Team (Late st Contact Info) Description 09/25/2023 1:00 PM CDT Office Visit [facility] Operator at [address] [place] [id number] Stalin Arauz MD [address] [place] [address] [address] [place] [address] Chronic atrial fibrillation (HCC) (Primary Dx); Peripheral arterial disease (HCC); Chronic heart failure with preserved ejection fraction (CMS/HCC) (HCC); 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; Atherosclerosis of [place] arteries of extremities with rest pain, right leg (HCC) Social History Tobacco Use Types Packs/Day Years Used Date Smoking Tobacco: Former Cigarettes 2 30 1 1981 Smokeless Tobacco: Never Tobacco Cessation:Counseling Given: Not Answered Alcohol Use Standard Drinks/Week Comments Not Currently 0 (1 standard drink = 0.6 oz pur e alcohol) [facility] Utilities Answer Date Recorded In the past 12 months has [employer], gas, oil, or water [employer] threatened to shut off services in your [...] often do you attend chur ch or rastafarian services? Never 07/24/2023 Do you belong to any clubs o r organizations such as jain groups, unions, fraternal or athletic groups, or [...] place to sleep or slept in a half-way (including now)? No 07/24/2023 Personal Safety Answer Date Recorded Have you ever been in or are you currently in a harmful physical or emotional relationship or is someone making you feel afraid or unsafe? 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 Gender Identity Not on file Sexual Orientation Not on file Occupation Industry Job Start Date Job End Date retired Not on file Not on file Not on file documented as of this encounter Last Filed Vital Signs Vital Sign Reading Time Taken Comments Blood Pressure 118/81 09/25/2023 1:05 PM CDT Pulse 93 09/25/2023 1:05 PM CDT Temperature - - Respiratory Rate 18 09/25/2023 1:05 PM CDT Oxygen Saturation - - Inhaled Oxygen Concentration - - Weight 82.6 kg (182 lb) 09/25/2023 1:05 PM CDT Height 152.4 cm (5') 09/25/2023 1:05 PM CDT Body Mass Index 35.54 09/25/2023 1:05 PM CDT documented in this encounter Progress Notes * Stalin Arauz MD - 09/25/2023 1:00 PM CDT Cardiology note Reason for Office Visit: Chief Complaint Patient presents with Peripheral Artery Disease Hypertension Claudication History of Present Illness: Tess Benedict is a 87 y.o. female who presents for follow up [...] with reasonable rate control. JONATHAN down some, 0.57 on the right and 0.64 on the left. Pt walking distance is limited, but better than before. No longer using a walker. No open sores WT less by 5 lbs since last visit Review of Systems Constitutional: Positive for malaise/fatigue. [...] TOTAL HIP ARTHROPLASTY Left 11/01/2021 Dr. Mckenzie, [facility]. Family History Problem Relation Age of Onset [...] use. Do not swallow. 60 each 4 furosemide (LASIX) 40 mg tablet [...] mg tablet TAKE 1 TABLET BY MOUTH TWICE A DAY 180 tablet 1 propranoloL (INDERAL) 20 mg tablet Take 1 [...] facility-administered medications for this visit. Vitals BP 118/81 (BP Location: Right arm, Patient Position: Sitting) Pulse 93 Resp 18 Ht 152.4 cm (5') Wt 82.6 kg (182 lb) LMP (LMP Unknown) BMI 35.54 kg/m?? Vitals: 09/25/23 1305 BP: 118/81 Pulse: 93 Resp: 18 Wt Readings from Last 3 Encounters: 09/25/23 82.6 kg (182 lb) 08/31/23 83 kg (183 lb) 07/31/23 84.8 kg (187 lb) Body mass index is 35.54 kg/m??. Physical Exam Constitutional: General: She is [...] Effort: Pulmonary effort is normal. Breath sounds: No decreased breath sounds. Comments: Diminished throughout Abdominal: General: Bowel sounds [...] Component Value Date BILIRUBINU Negative 02/07/2017 AST 18 07/22/2023 ALT 17 07/22/2023 ALKPHOS 156 (H) 07/22/2023 ALBUMIN 3.7 07/22/2023 Lab Results Component Value Date SODIUM 133 (L) 07/31/2023 POTASSIUM 4.3 07/31/2023 CHLORIDE 95 (L) 07/31/2023 CO2 28 07/31/2023 ANIONGAP 10 07/31/2023 CK 114 11/09/2021 GLUCOSEUR 3+ (A) 06/25/2023 No results found for: BNP Lab Results Component Value Date SODIUM 133 (L) 07/31/2023 SODIUM 139 07/23/2023 SODIUM 139 07/22/2023 POTASSIUM 4.3 07/31/2023 POTASSIUM 3.5 07/23/2023 POTASSIUM 4.5 07/22/2023 CHLORIDE 95 (L) 07/31/2023 CHLORIDE 98 07/23/2023 CHLORIDE 99 07/22/2023 CO2 28 07/31/2023 CO2 30 07/23/2023 CO2 28 07/22/2023 BUNSER 24 07/31/2023 BUNSER 36 (H) 07/23/2023 BUNSER 33 (H) 07/22/2023 CREATININE 1.31 (H) 07/31/2023 CREATININE 1.46 (H) 07/23/2023 CREATININE 1.37 (H) 07/22/2023 GFRNAA 40 07/31/2023 GFRNAA 35 07/23/2023 GFRNAA 38 07/22/2023 GLUCOSE 102 07/31/2023 CALCIUM 9.8 07/31/2023 CALCIUM 9.2 07/23/2023 CALCIUM 9.2 07/22/2023 ALBUMIN 3.7 07/22/2023 ALBUMIN 3.5 06/24/2023 ALBUMIN 3.5 06/14/2023 PHOS 3.4 12/29/2022 PHOS 3.2 02/14/2017 PHOS 3.9 04/29/2014 Lab Results Component Value Date SODIUM 133 (L) 07/31/2023 POTASSIUM 4.3 07/31/2023 CHLORIDE 95 (L) 07/31/2023 CO2 28 07/31/2023 ANIONGAP 10 07/31/2023 BUNSER 24 07/31/2023 CREATININE 1.31 (H) 07/31/2023 GLUCOSE 102 07/31/2023 CALCIUM 9.8 07/31/2023 BILITOT 0.4 07/22/2023 PROT 6.9 07/22/2023 ALBUMIN 3.7 07/22/2023 ALKPHOS 156 (H) 07/22/2023 ALT 17 07/22/2023 AST 18 07/22/2023 Lab Results Component Value Date WBC 9.3 07/31/2023 HGB 10.3 (L) 07/31/2023 HCT 36.0 07/31/2023 LABPLAT 418 (H) 07/31/2023 MPV 8.9 (L) 07/31/2023 RBC 4.63 07/31/2023 MCV 77.8 (L) 07/31/2023 MCH 22.2 (L) 07/31/2023 MCHC 28.6 (L) 07/31/2023 RDWCV 24.3 (H) 07/31/2023 RDWSD 62.4 (H) 07/31/2023 NRBCABS 0.00 07/31/2023 Lab Results Component Value Date CHOL 128 [...] >50%). Ankle-brachial index in June 2022 1. Jezd-vj-nvugzagh arterial insufficiency at rest in the right [...] waveform at the ankle. JONATHAN 10/24/2022 1. Caum-ur-xxgcgwjk arterial insufficiency at rest in the right [...] to biphasic waveforms at the ankle bilaterally. Diagnoses 1. Atypical leg symptoms ? Peripheral [...] and 0.64 on the left in August 2023 2. Atrial fibrillation, probably chronic on Xarelto. [...] 8. Dyslipidemia, lipid at target in 07/2023 ( LDL 64) Plan Continue Jardiance, aldactone, Xarelto, Likes to take inderal to help with tremor. Will resume it and stop coreg Follow daily water intake and daily weight . If weight gain , take extra lasix that morning Treat and correct anemia Reviewed 07/2023 BMP / BNP / CBC to assess current compensation . It showed creatinine at 1.3. Potassium was 4.3. Anemia improved with hemoglobin of 10.3 BNP was still elevated at 4735 although Less than before .Pt probably at her ideal weight .pt already on lasix /metolazone daily. OK to use extradoses at home for weight gain . Holter 48 in 08/2023 showed good HR control OK to use Wegovy or other meds for weight reduction Reviewed recent JONATHAN report. Patient does not have open wounds. Does not appear to have lifestyle limiting claudications at the current workload. She walks slowly and had prior hip replacements. We discussed the need for revascularization if worsening claudications or development of open wounds. She is to call back if that happens RTC in 6 months with JONATHAN Diagnoses and all orders for this visit: Chronic atrial fibrillation (HCC) (Primary) Peripheral arterial disease (HCC) Chronic heart failure with preserved ejection fraction (CMS/HCC) (HCC) 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 Return in about 6 months (around 03/26/2024). 09/25/2023 1:24 PM Stalin Arauz MD Cc:Pepper Morgan MD documented in this encounter Plan of Treatment Scheduled Orders Name Type Priority Associated Diagnoses Orde r Schedule US JONATHAN Imaging Schedule Routine , Read Routine (OP Routine) Atherosclerosis of [place] arteries of extremities with rest pain, right leg (HCC) Expected: 03/19/2024, Expires: 03/26/2025 documented as of this encounter Goals Goal [...] (CMS/HCC) (HCC) 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 Essential hypertension, benign Atherosclerosis of [place] arteries of extremities with rest pain, right leg (HCC) documented in this encounter Care Teams Sample Room Supervisor Relationship Specialty Start Date End Date Pepper Morgan MD PCP - General 09/16/16 Hank Garibay MD [address] [place] [address] [place] [address] Surgeon Orthopedic Surgery 03/27/17 Jacky Murry MD [address] [facility] [address] [place] [address] Ophthalmology 03/27/17 Puma Mckenzie MD [address] [facility] [address] [place] [address] Surgeon Orthopedic Surgery 07/11/19 Neha Jackson, PT Physical Therapist Physical Therapy 12/01/21 Stalin Arauz MD [address] [facility] [address] [place] [address] Consulting Physician Cardiology 12/08/22 Tiffany Rojas PA [address] [facility] [address] [place] [address] Gastroenterology 12/30/22 Kluas Deshpande MD [address] [facility] [address] [place] [address] Consulting Physician Neurology 06/13/23 documented as of this encounter
--- OUTSIDE RECORDS SUMMARY | 2024-06-18 18:49 | XMS_ITS | Encounter Summary ---
Author Organization [facility] Address [address] [place] [address] Care Team Providers Care Bellows Filler Name Role Phone Pepper Morgan MD Primary Care Provider + [phone] Hank Garibay MD Unavailable [phone] Jacky Murry MD Unavailable [phone] Puma Mckenzie MD Unavailable [phone] Neha Jackson PT Unavailable Unavailable Stalin Arauz MD Unavailable [phone] Tiffany Rojas Unavailable [phone] Klaus Deshpande MD Unavailable [phone] Encounter Details Date Type Department Care Team (Late st Contact Info) Description 09/06/2023 Telephone [place] [facility] Educator at [address] [place] [id number] [facility], [place] Social History Tobacco Use Types Packs/Day Years Used Date Smoking Tobacco: Former Cigarettes 2 30 1 952 - 1981 Smokeless Tobacco: Never Alcohol Use Standard Drinks/Week Comments Not Currently 0 (1 standard drink = 0.6 oz pur e alcohol) [facility] Utilities Answer Date Recorded In the past 12 months has [employer], gas, oil, or water company threatened to [...] often do you attend chur ch or christian services? Never 07/24/2023 Do you belong to any clubs o r organizations such as taoist groups, unions, fraternal or athletic groups, or [...] in a fci (including now)? No 07/24/2023 Personal Safety Answer Date Recorded Have you ever been in or are you currently in a harmful physical or emotional relationship or is someone making you feel afraid or unsafe? 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 Arauz sooner than her appointment in October. How are her legs doing? documented in this encounter Plan of Treatment [...] on filedocumented in this encounter Care Teams Bellows Filler Relationship Specialty Start Date End Date Pepper Morgan MD PCP - General 09/16/16 Hank Garibay MD [address] [facility] [address] [place] [address] Surgeon Orthopedic Surgery 03/27/17 Jacky Murry MD [address] [facility] [address] [place] [facility] [address] [place] [address] Ophthalmology 03/27/17 Puma Mckenzie MD [address] [facility] [address] [place] [address] Surgeon Orthopedic Surgery 07/11/19 Neha Jackson, PT Physical Therapist Physical Therapy 12/01/21 Stalin Arauz MD [address] [facility] [address] [place] [address] Consulting Physician Cardiology 12/08/22 Tiffany Rojas PA [address] [facility] [address] [place] [address] Gastroenterology 12/30/22 Klaus Deshpande MD [address] [facility] [address] [place] [address] Consulting Physician Neurology 06/13/23 documented as of this encounter
--- OUTSIDE RECORDS SUMMARY | 2024-06-18 18:49 | XMS_ITS | Encounter Summary ---
Author Organization [facility] Healthcare Address [address] [place] [address] Care Team Providers Care Brewery Pumper Name Role Phone Pepper Morgan MD Primary Care Provider [phone] Hank Garibay MD Unavailable [phone] Jacky Murry MD Unavailable [phone] Puma Mckenzie MD Unavailable [phone] Neha Jackson PT Unavailable Unavailable Stalin Arauz MD Unavailable [phone] Tiffany Rojas Unavailable [phone] Klaus Deshpande MD Unavailable [phone] Reason for Visit * Reason Comments Gout Encounter Details Date Type Department Care Team (Late st Contact Info) Description 10/26/2023 1:00 PM CDT Office Visit [facility] [address] [place] [id number] Pepper Morgan MD [address] [id number] Gouty arthritis of foot (Primary Dx); 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; 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; Chronic GERD; Acute on chronic heart failure with preserved ejection fraction (CMS/HCC) (HCC); Essential tremor; Senile purpura (CMS/HCC) (HCC); Sun-damaged skin; Muscle cramps; Heart failure with preserved ejection fraction, unspecified HF chronicity (HCC) Social History Tobacco Use Types Packs/Day Years Used Date Smoking Tobacco: Former Cigarettes 2 30 1 1981 Smokeless Tobacco: Never Alcohol Use Standard Drinks/Week Comments Not Currently 0 (1 standard drink = 0.6 oz pur e alcohol) [facility] Utilities Answer Date Recorded In the past 12 months has [email or web address], gas, oil, or water [employer] threatened to shut off services in your [...] week 07/24/2023 How often do you attend [facility] or restorationism services? 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 Gender Identity Not on file Sexual Orientation Not on file Occupation Industry Job Start Date Job End Date retired Not on file Not on file Not on file documented as of this encounter Last Filed Vital Signs Vital Sign Reading Time Taken Comments Blood Pressure 100/66 10/26/2023 1:12 PM CDT Pulse 101 10/26/2023 1:12 PM CDT Temperature 36.2 ??C (97.1 ??F) 10/26/2023 1:12 PM CD T Respiratory Rate 20 10/26/2023 1:12 PM CDT Oxygen Saturation 97% 10/26/2023 1:12 PM CDT Inhaled Oxygen Concentration - - Weight 82.6 kg (182 lb) 10/26/2023 1:12 PM CDT Height - - Body Mass Index 35.54 09/27/2023 2:41 PM CDT documented in this encounter Patient Instructions * Patient Instructions* Pepper Morgan MD - 10/26/2023 1:00 PM CDT Tess Mathewwmake to review this After Visit Summary ( AVS ) for accuracy & contact us if you find need for changes. == ORDERS FOR AMS STAFF TO ARRANGE: X-rays for today = right foot and ankle x-ray diagnosis = gout arthritis Labs for today = CBC = senile purpura., uric acid level = gout, chemistry profile, magnesium level , NT pro BNP = HFpEF, = muscle cramps, HFpEF medication monitoring, with copies to Dr. Davonte Toro for one-month follow-up on gout medicine titration = basic panel, uric acid level MEDICATION CHANGES RECOMMENDED TODAY: Today Start dexamethasone 4 mg daily until arthritis is controlled to the point where you can standand walk--take no longer than one-week--. Next week--after you are off of dexamethasone begin colchicine 0.4 mg twice daily before breakfast and dinner. This medication will stabilize gout and allow us to get on allopurinol. This medication may cause diarrhea. Be certain that you are home and do not have social activities planned while youtitrate on this medicine, you will know in 1 or 2 days whether you are having trouble with the pill. Day after start allopurinol 100 mg before dinner to prevent gout, we will be titratingthis medication monthly after blood tests THERAPY CHANGES/PERSONAL CARE CHANGES 1. Continue to have your daughter load your pill boxes, have her pay attention to timing of the medicines and always take them before eating food so that the food will help the medicines get into your stomach safely 2. UV protected arm sleeves to prevent sun damage 3. Considering using men's tube sock put on backwards with the heel on your elbow and the cushion part on your arm to prevent contusions to the arm and the recurrent senile purpura rash that has developed AFTER HOURS ADDENDUM Right foot and ankle x-ray (+) for articular loose body. Patient advised referral foot and ankle center at [place] [facility] or Dr. White. Offload weight from the foot by using front wheel back ski walker minimize weight-bearing on the right foot and ankle. Refer to [facility] physical therapy to learn how to properly use the walker. No driving until after review by the foot and ankle specialists for further advice on driving safety. Dr. Pepper Morgan This is the current active MEDICATION LIST that your providers BELIEVE YOU ARE TAKING The Complete MEDICATION LIST at conclusion of visit 10/29/2023 Current Outpatient Medications: aspirin, 81 mg, oral, Daily cetirizine, 10 mg, oral, Nightly cholecalciferol, 2,000 Units, oral, Daily empagliflozin, 10 mg, oral, Daily fluticasone propion-salmeteroL, 1 puff, inhalation, BID furosemide, 40 mg, oral, BID metOLazone, 5 mg, oral, Daily pantoprazole DR, [...] with lunch) spironolactone, 25 mg, oral, Daily albuterol HFA, 2 puff, inhalation, Q6H PRN allopurinoL, 100 mg, oral, Before breakfast carvediloL, 6.25 mg, oral, BID with meals (bkfst, dinner) (Patient not taking: Reported on 10/26/2023) colchicine, 0.6 mg, oral, BID PRN colchicine, 0.6 mg, oral, BID AC (bkfst, dinner) dexAMETHasone, 4 mg, oral, Daily PRN ondansetron ODT, 4 mg, oral, Q8H PRN polyethylene glycol, 17 g, oral, Daily PRN PLEASE REVIEW this CARE TEAM and advise [...] Consulting Physician (Cardiology) Tiffany Rojas PA (Gastroenterology) Kalus Deshpande MD as Consulting Physician (Neurology) For further INTERNET RESEARCH on your medical concerns: I recommend www.NLM,NIH.GOV/MEDLINEPLUS = the National library of medicine online site. This is a consistently reliable site for your personal medical research. documented in this encounter Ordered Prescriptions Prescription Sig Dispense Quantity Refills Last Filled Start Date End Date colchicine (COLCRYS) 0.6 mg tabletIndications: Gouty arthritis of foot Take 1 tablet (0.6 mg total) by mouth 2 (two) times a day as needed (As MD directed ( Mitigare) for Gout medication titration) 60 tablet 5 10/29/2023 4 dexAMETHasone (DECADRON) 4 mg tabletIndications: Gouty arthritis of foot Take 1 tablet (4 mg total) by mouth daily as needed (Severe gout pain) 30 tablet 10/26/2023 4 colchicine (Mitigare) 0.6 mg capsuleIndications :Gouty arthritis of foot Take 1 capsule (0.6 mg total) by mouth 2 (two) times a day before breakfast and dinner To prevent gout while we start on allopurinol. Begin Sunday November 05, 2023 when all social activities are over 60 capsule 11 10/26/2023 4 allopurinoL (ZYLOPRIM) 100 mg tabletIndications: Gouty arthritis of foot Take 1 tablet (100 mg total) by mouth daily before breakfast 30 tablet 1 10/26/2023 4 documented in this encounter Progress Notes * Pepper Morgan MD - 10/26/2023 1:00 PM CDT Images from the original note were not included. Patient ID: Tess Benedict is a 87 y.o. female. Tess Benedict presents for follow-up of her ankle and foot pain much worse with weight-bearing leading to and inability to walk PLAN : ORDERS TO BE REVIEWED WITH her AT FOLLOW-UP VISIT: Return in about 4 weeks (around 2023) for Recheck gout, esophageal dysphagia, HFpEF, muscle cramps. . Orders successfully placed before signing the note: Orders Placed This Encounter Procedures XR Ankle Right 3 or More Views XR Foot Right 3 or More Views CBC with auto differential Uric acid Comprehensive metabolic panel Magnesium Pro B-type natriuretic peptide Basic metabolic panel Uric acid MEDICATION CHANGES AND REFILL MANAGEMENT: medication list at conclusion of this encounter: Current Outpatient Medications: aspirin, 81 mg, oral, Daily cetirizine, 10 mg, oral, Nightly cholecalciferol, 2,000 Units, oral, Daily empagliflozin, 10 mg, oral, Daily fluticasone propion-salmeteroL, 1 puff, inhalation, BID furosemide, 40 mg, oral, BID metOLazone, 5 mg, oral, Daily pantoprazole DR, [...] with lunch) spironolactone, 25 mg, oral, Daily albuterol HFA, 2 puff, inhalation, Q6H PRN allopurinoL, 100 mg, oral, Before breakfast carvediloL, 6.25 mg, oral, BID with meals (bkfst, dinner) (Patient not taking: Reported on 10/26/2023) colchicine, 0.6 mg, oral, BID PRN colchicine, 0.6 mg, oral, BID AC (bkfst, dinner) dexAMETHasone, 4 mg, oral, Daily PRN ondansetron ODT, 4 mg, oral, Q8H PRN polyethylene glycol, 17 g, oral, Daily PRN HPI - ASSESSMENT & DIFFERENTIAL DIAGNOSIS Complexities of all of her problems record 42 minutes of face to face time 1. Gouty arthritis of foot NEW PROBLEM UNCONTROLLED HIGH-RISK She reports a prior history of gout arthritis has been diagnosed by FOSTER Espinoza. I do notsee any evidence of the diagnosis in laboratory testing with no joint aspirates uric acid levels and only 1 indication in the chart that somebody attempted to prescribe figs which she states she took1 pill from FOSTER Espinoza and never took it again after reading more about the medicine She was absolutely unable to bear weight on her feet. She has no acute inflammatory arthritis at this time after taking dexamethasone over the weekend for a family event. We did not want to start colchicine at that time because of the potential for diarrhea. We described the entire titration schedule for gout. Risk of the medication including toxic epidermal necrolysis reviewed in the need to come off medicines immediately should skin side effects occur on allopurinol reinforced with her and the company ofher sister who will also watch over her allopurinoL (ZYLOPRIM) 100 mg tablet; Take 1 tablet (100 mg total) by mouth daily before breakfast Dispense: 30 tablet; Refill: 1 colchicine (Mitigare) 0.6 mg capsule; Take 1 capsule (0.6 mg total) by mouth 2 (two) times a day before breakfast and dinner To prevent gout while we start on allopurinol. Begin Sunday November 05, 2023 when all social activities are over Dispense: 60 capsule; Refill: 11 dexAMETHasone (DECADRON) 4 mg tablet; Take 1 tablet (4 mg total) by mouth daily as needed (Severe gout pain) Dispense: 30 tablet; Refill: 0 2. 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 CHRONIC BLOOD PRESSURE TOO LOW Low end of normal blood pressure today. Maximized on cardiac meds for her HFpEF. Electrolytes will be helpful to determine if current regimen is safe 3. 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 NEW UNCONTROLLED 4. Chronic GERD Dosage scheduling on all of her medicines reviewed. She has been taking all pills after eating which is leading to simply age common pill esophagitis most especially noted after potassium which she took just before this visit and after eating lunch. We switched all of her medicines to dose before food. I gave her 1 of her Protonix today and she will eaten 30 minutes to activate the medicine. Reviewed every 1 of her pills for proper dosing technique to get the most out of each pill 5. Acute on chronic heart failure with preserved ejection fraction CHRONIC PHYSICALLY CONTROL (CMS/HCC) (HCC) Titrated appropriately on HFpEF medications by Dr. Arauz and his team. Labs will be updated today to include potassium and magnesium levels as she was having cramping 6. Essential tremor Managed by Dr. Deshpande. He did recommend drinking a little glass of wine before going out to eat. I have no problem with this as it should not interfere with her gout 7. Senile purpura ([facility]) ([facility]) CHRONIC UNCONTROLLED 8. Sun-damaged skin Purpura. on all areas of exposed arms and legs. Proper pressure support after lab draw, avoidance of sun damage with proper sleeves when she was outdoors. Cushion pads for her arms with the men's tube sock all recommended to help heal the current wounds. CBC to be done make sure there is not a medical problem REVIEW OF SYSTEMS: Review of Systems Constitutional: Positive for activity change and appetite change (NOT SURE WHAT TO EAT SHE HAS BEENREADING THE INTERNET). Negative for fatigue, fever and unexpected weight change. HENT: [...] and vaginal discharge. Musculoskeletal: Positive for arthralgias (severe pain in the feet) and gait problem (severe pain with weight-bearing especially in the right ankle and now gone to the right foot). Negative for jointswelling and myalgias. Skin: Positive for rash (did have severe erythema on the foot which is resolved after a short course of dexamethasone) and wound. Negative for color change. Neurological: Negative for dizziness, weakness and headaches. Hematological: Negative for adenopathy. Bruises/bleeds easily. Psychiatric/Behavioral: Negative for behavioral problems, dysphoric mood and sleep disturbance. Thepatient is not nervous/anxious. VITAL SIGNS: BP 100/66 (BP Location: Left arm, Patient Position: Sitting) Pulse 101 Temp 36.2 ??C (97.1 ??F)(Temporal) Resp 20 Wt 82.6 kg (182 lb) LMP (LMP Unknown) SpO2 97% BMI 35.54 kg/m?? Body mass index is 35.54 kg/m??. Wt Readings from Last 3 Encounters: 10/27/23 81.6 kg (180 lb) 10/26/23 82.6 kg (182 lb) 09/27/23 82.6 kg (182 lb) PHYSICAL EXAMINATION: Physical Exam Vitals and nursing note reviewed. Exam conducted with a audio visual production specialist present (Accompanied by her oldersister who is quite agile). Constitutional: General: She is not in acute distress. Appearance: Normal appearance. She is well-developed. She is obese. She is not ill-appearing. Comments: Wheelchair examined HENT: Head: Normocephalic and atraumatic. Right Ear: [...] reactive to light. Neck: Thyroid: No thyromegaly. Comments: Kyphotic for thoracic posture Cardiovascular: Rate and Rhythm: Normal rate and regular rhythm. Heart sounds: Normal heart sounds. No murmur heard. No gallop. Comments: Blood pressure low 100/50 but without orthostatic symptoms, could not bear weight on the foot long enough to do and standing blood pressure because her right foot hurts so bad Pulmonary: Effort: Pulmonary effort is normal. Breath sounds: Normal breath sounds. No wheezing, rhonchi or rales. Abdominal: General: Bowel sounds are normal. There is no distension. Palpations: Abdomen is soft. There is no mass. Tenderness: There is no abdominal tenderness. Hernia: No hernia is present. Comments: Obese nontender abdomen with normal bowel sounds Musculoskeletal: General: Deformity present. No tenderness. Cervical back: Neck supple. Right lower leg: No edema. Left lower leg: No edema. Comments: Musculoskeletal exam especially on the concern at the area of the feet is remarkable for being unremarkable. There is no erythema warmth there is intact range motion. She has thin delicate extremities with loss of normal arch, no warmth erythema or hypertrophy if any of the joint areas Lymphadenopathy: Cervical: No cervical adenopathy. Skin: General: Skin is warm and dry. Findings: Bruising (with senile purpura throughout both arms and no other bruising on the body) present. No erythema, lesion or rash. Neurological: Mental Status: She is alert and oriented to person, place, and time. Mental status is at baseline. Cranial Nerves: No cranial nerve deficit. Motor: Weakness present. No abnormal muscle tone. Coordination: Coordination normal. Gait: Gait abnormal. Psychiatric: Behavior: Behavior normal. Thought Content: Thought content normal. Judgment: Judgment normal. Comments: Initially very upset but easily calm down when we got to the details of her issues he is some answers to help her problems MOST RECENT LABS: Lab on 10/26/2023 Component Date Value NT-proBNP [...] (WBC >10) not met. eGFR 06/26/2023 33 Admission on 06/14/2023, Discharged on 06/17/2023 Component Date Value Sodium 06/14/2023 133 (L) Potassium, pl 06/14/2023 5.0 (H) Chloride 06/14/2023 97 CO2 06/14/2023 26 Anion gap 06/14/2023 10 BUN 06/14/2023 37 (H) Creatinine 06/14/2023 1.84 (H) Glucose 06/14/2023 103 Calcium 06/14/2023 9.3 Bilirubin, total 06/14/2023 0.3 Protein, pl 06/14/2023 6.9 Albumin 06/14/2023 3.5 Alk phos 06/14/2023 125 ALT 06/14/2023 12 AST 06/14/2023 21 WBC 06/14/2023 9.4 Hgb 06/14/2023 9.5 (L) Hct 06/14/2023 32.2 (L) Plt 06/14/2023 419 (H) MPV 06/14/2023 8.8 (L) RBC 06/14/2023 4.17 MCV 06/14/2023 77.2 (L) MCH 06/14/2023 22.8 (L) MCHC 06/14/2023 29.5 (L) RDW CV 06/14/2023 16.0 (H) RDW SD 06/14/2023 44.9 NRBC abs 06/14/2023 0.00 Trop T hs 06/14/2023 22 (H) NT-proBNP 06/14/2023 6,669 (H) Influenza A RNA 06/14/2023 Not Detected Influenza B RNA 06/14/2023 Not Detected RSV RNA 06/14/2023 Not Detected COVID-19 RNA 06/14/2023 Not Detected Coronavirus 229E RNA 06/14/2023 Not Detected Coronavirus HKU1 RNA 06/14/2023 Not Detected Coronavirus NL63 RNA 06/14/2023 Not Detected Coronavirus OC43 RNA 06/14/2023 Not Detected Adenovirus DNA 06/14/2023 Not Detected Metapneumovirus RNA 06/14/2023 Not Detected Rhinovirus/Enterovirus R* 06/14/2023 Not Detected Parainfluenza 1 RNA 06/14/2023 Not Detected Parainfluenza 2 RNA 06/14/2023 Not Detected Parainfluenza 3 RNA 06/14/2023 Not Detected Parainfluenza 4 RNA 06/14/2023 Not Detected B. pertussis DNA 06/14/2023 Not Detected B. parapertussis DNA 06/14/2023 Not Detected C. pneumoniae DNA 06/14/2023 Not Detected M. pneumoniae DNA 06/14/2023 Not Detected Neutrophil abs 06/14/2023 7.2 (H) Imm gran abs 06/14/2023 0.1 Lymphocyte abs 06/14/2023 1.0 Monocyte abs 06/14/2023 0.8 Eosinophil abs 06/14/2023 0.3 Basophil abs 06/14/2023 0.1 Neutrophil pct 06/14/2023 76.3 Imm gran pct 06/14/2023 0.8 Lymphocyte pct 06/14/2023 10.6 Monocyte pct 06/14/2023 8.3 Eosinophil pct 06/14/2023 3.3 Basophil pct 06/14/2023 0.7 Trop T hs 06/14/2023 21 (H) Trop T hs delta 06/14/2023 -1 Trop T hs interp 06/14/2023 Insignificant Trop T hs 06/15/2023 21 (H) Trop T hs delta 06/15/2023 -1 Trop T hs interp 06/15/2023 Insignificant eGFR 06/14/2023 27 Iron 06/14/2023 18 (L) TIBC 06/14/2023 438 (H) Transferrin saturation 06/14/2023 4 (L) Ferritin 06/14/2023 19 WBC 06/15/2023 9.0 Hgb 06/15/2023 9.1 (L) Hct 06/15/2023 31.1 (L) Plt 06/15/2023 400 MPV 06/15/2023 9.1 RBC 06/15/2023 4.03 MCV 06/15/2023 77.2 (L) MCH 06/15/2023 22.6 (L) MCHC 06/15/2023 29.3 (L) RDW CV 06/15/2023 16.0 (H) RDW SD 06/15/2023 45.1 NRBC abs 06/15/2023 0.00 Sodium 06/15/2023 134 (L) Potassium, pl 06/15/2023 4.1 Chloride 06/15/2023 95 (L) CO2 06/15/2023 29 Anion gap 06/15/2023 10 BUN 06/15/2023 38 (H) Creatinine 06/15/2023 1.68 (H) Glucose 06/15/2023 94 Calcium 06/15/2023 9.2 eGFR 06/15/2023 30 Magnesium 06/15/2023 2.2 Cholesterol 06/15/2023 129 Triglycerides 06/15/2023 71 HDL 06/15/2023 40 LDL, calculated 06/15/2023 75 Non-HDL Cholesterol 06/15/2023 89 Chol/HDL ratio 06/15/2023 3 WBC 06/16/2023 8.0 Hgb 06/16/2023 9.4 (L) Hct 06/16/2023 31.8 (L) Plt 06/16/2023 374 MPV 06/16/2023 8.7 (L) RBC 06/16/2023 4.20 MCV 06/16/2023 75.7 (L) MCH 06/16/2023 22.4 (L) MCHC 06/16/2023 29.6 (L) RDW CV 06/16/2023 16.0 (H) RDW SD 06/16/2023 43.6 NRBC abs 06/16/2023 0.00 Sodium 06/16/2023 133 (L) Potassium, pl 06/16/2023 4.1 Chloride 06/16/2023 93 (L) CO2 06/16/2023 28 Anion gap 06/16/2023 12 BUN 06/16/2023 44 (H) Creatinine 06/16/2023 1.62 (H) Glucose 06/16/2023 101 Calcium 06/16/2023 9.3 eGFR 06/16/2023 31 WBC 06/17/2023 9.4 Hgb 06/17/2023 9.6 (L) Hct 06/17/2023 32.0 (L) Plt 06/17/2023 392 MPV 06/17/2023 9.0 (L) RBC 06/17/2023 4.21 MCV 06/17/2023 76.0 (L) MCH 06/17/2023 22.8 (L) MCHC 06/17/2023 30.0 (L) RDW CV 06/17/2023 15.9 (H) RDW SD 06/17/2023 43.7 NRBC abs 06/17/2023 0.00 Sodium 06/17/2023 136 Potassium, pl 06/17/2023 3.7 Chloride 06/17/2023 92 (L) CO2 06/17/2023 31 Anion gap 06/17/2023 13 BUN 06/17/2023 48 (H) Creatinine 06/17/2023 1.57 (H) Glucose 06/17/2023 91 Calcium 06/17/2023 9.4 eGFR 06/17/2023 32 There may be more visits with results [...] available on the AVS. Pepper Morgan MD documented in this encounter [...] as of this encounter Results * (ABNORMAL) Uric acid (11/20/2023 9:23 AM CDT) Uric acid 8.6(H) 2.5 - 7.0 mg/dL Comment:Testing performed by : [address] [id number] Blood 11/20/2023 9:23 AM CDT 11/20/2023 12:53 PM CDT us Pepper Morgan MD LAB BLOOD ORDERABLES Final Result [address] Department [place] [address] * (ABNORMAL) Basic metabolic panel (11/20/2023 9:23 AM CDT) Sodium 134(L) 135 - 145 mmol/L Comment:Testing performed by : [address] [address] Potassium, pl 4.2 3.3 - 4.9 mmol/L [facility] Comment:Testing performed by : [address] [address] Chloride 95(L) 97 - 110 mmol/L [facility] Comment:Testing performed by : [address] [address] CO2 25 22 - 32 mmol/L [facility] Comment:Testing performed by : [facility], [address] [place] [address]., [address] Anion gap 14 2 - 15 mmol/L [facility] Comment:Testing performed by : [address] [address] BUN 47(H) 6 - 25 mg/dL [facility] Comment:Testing performed by : [address] [address] Creatinine 1.60(H) 0.60 - 1.10 mg/dL [facility] Comment:Testing performed by : [facility], [address] [place] [address]., [address] Glucose 100 70 - 199 mg/dL [facility] Comment: Interpretive Data Fasting glucose >/= 126 [...] was last revised 2022. Testing performed by: [address], [address] Calcium 10.0 8.5 - 10.3 mg/dL [facility] Comment:Testing performed by : [address] [address] Blood 11/20/2023 9:23 AM CDT 11/20/2023 12:53 PM CDT us Pepper Morgan MD LAB BLOOD ORDERABLES Final Result [facility] [address] Department [place] [address] * XR Foot Right 3 or More [...] PM T: ??10/26/2023 10:25 PM Report ID: [id number] Reading Location: ??[id number] Procedure Note Klaus Reddy MD - 10/26/2023 [...] Klaus Reddy M.D. MF: JEANNE Report ID: [id number] Reading Location: [id number] us Pepper Morgan MD IMG XR PROCEDURES [...] 10:25 PM - Electronically signed by ??Klaus ANGEL: JEANNE D: ??10/26/2023 10:25 PM T: ??10/26/2023 10:25 PM Report ID: [id number] Reading Location: ??[id number] Procedure Note Klaus Reddy MD - 10/26/2023 [...] 10:25 PM - Electronically signed by Klaus ANGEL: JEANNE Report ID: [id number] Reading Location: [place] [address] us Pepper Morgan MD IMG XR PROCEDURES Final Re sult * (ABNORMAL) Pro B-type natriuretic peptide (10/26/2023 2:27 PM CDT) [facility] Signature NT-proBNP 2,726(H) <=450 pg/mL Comment: Interpretive Comments: [...] Last Revised Date: 2018. Testing performed by: [facility], [address] [place] [address]., [id number] Blood 10/26/2023 2:27 PM CDT 10/26/2023 9:05 PM CDT us Pepper Morgan MD LAB BLOOD ORDERABLES Final Result Performing Organization Address [facility] de Phone Number [place] [phone] Department [place] [address] * Magnesium (10/26/2023 2:27 PM CDT) Pathologist [facility] Magnesium 1.8 1.4 - 2.5 mg/dL Comment:Testing performed by : [address], [address] Blood 10/26/2023 2:27 PM CDT 10/26/2023 9:05 PM CDT us Pepper Morgan MD LAB BLOOD ORDERABLES Final Result Performing Organization Address [facility] de Phone Number [place] [phone] [facility] Department [place] [address] * (ABNORMAL) Comprehensive metabolic panel (10/26/2023 2:27 PM CDT) [facility] Sodium 138 135 - 145 mmol/L Comment:Testing performed by : [facility], [address] [place] [address]., [address] Potassium, pl 4.5 3.3 - 4.9 mmol/L [facility] Comment:Testing performed by : [facility], [address] [place] [address]., [address] Chloride 97 97 - 110 mmol/L [facility] Comment:Testing performed by : [address] [address] CO2 31 22 - 32 mmol/L [facility] Comment:Testing performed by : [address] [address] Anion gap 10 2 - 15 mmol/L [facility] Comment:Testing performed by : [address] [address] BUN 53(H) 6 - 25 mg/dL [facility] Comment:Testing performed by : [address] [address] Creatinine 1.54(H) 0.60 - 1.10 mg/dL [facility] Comment:Testing performed by : [address], [address] Glucose 85 70 - 199 mg/dL CERNER [...] was last revised 2022. Testing performed by: [address], [address] Calcium 10.7(H) 8.5 - 10.3 mg/dL CERNER CH Comment:Testing performed by : [address], [address] Bilirubin, total 0.2 0.1 - 1.2 mg/dL CERNER CH Comment:Testing performed by : [address] [address] Protein, pl 7.3 6.5 - 8.5 g/dL CERNER CH Comment:Testing performed by : [address], [address] Albumin 3.7 3.5 - 5.0 g/dL CERNER CH Comment:Testing performed by : [address], [address] Alk phos 120 40 - 130 Units/L CERNER CH Comment:Testing performed by : [address], [address] ALT 18 7 - 45 Units/L CERNER CH Comment:Testing performed by : [address], [address] AST 28 10 - 45 Units/L CERNER CH Comment:Testing performed by : [address] [address] Blood 10/26/2023 2:27 PM CDT 10/26/2023 9:05 PM CDT us Pepper Morgan MD LAB BLOOD ORDERABLES Final Result Performing Organization Address [facility] Co de Phone Number CHIDI [phone] [facility] Department [place] [address] * (ABNORMAL) Uric acid (10/26/2023 2:27 PM CDT) Uric acid 11.5(H) 2.5 - 7.0 mg/dL Comment:Testing performed by : [address] [address] Blood 10/26/2023 2:27 PM CDT 10/26/2023 9:05 PM CDT us Pepper Morgan MD LAB BLOOD ORDERABLES Final Result Performing Organization Address [facility] de Phone Number CHIDI [address] [facility] Department [place] [address] * (ABNORMAL) CBC with auto differential (10/26/2023 2:27 PM CDT) WBC 10.0(H) 3.8 - 9.9 K/cumm Comment:Testing performed by : [address] [address] Hgb 14.6 11.9 - 15.5 g/dL CHIDI Comment:Testing performed by : [address] [address] Hct 49.3(H) 35.6 - 45.5 % CHIDI Comment:Testing performed by : [address] [address] Plt 400 150 - 400 K/cumm CHIDI CH Comment:Testing performed by : [address] [address] MPV 9.5 9.1 - 12.3 fL CERKAMRON CH Comment:Testing performed by : [facility], [address] [place] [address]., [address] RBC 5.64(H) 3.90 - 5.20 M/cumm CHIDI Comment:Testing performed by : [address] [address] MCV 87.4 81.3 - 96.4 fL CHIDI Comment:Testing performed by : [address] [address] MCH 25.9(L) 27.1 - 33.3 pg CHIDI Comment:Testing performed by : [address], [address] MCHC 29.6(L) 32.3 - 35.7 g/dL CHIDI Comment:Testing performed by : [address], [address] RDW CV 17.0(H) 11.1 - 14.9 % CHIDI Comment:Testing performed by : [address], [address] RDW SD 52.6(H) 35.7 - 48.1 fL CHIDI Comment:Testing performed by : [address], [address] NRBC abs 0.00 0.00 - 0.01 K/cumm CHIDI Comment:Testing performed by : [address], [address] Blood 10/26/2023 2:27 PM CDT 10/26/2023 9:05 PM CDT us Pepper Morgan MD LAB BLOOD ORDERABLES Final Result [address] Department [place] [address] documented in this encounter Visit Diagnoses Diagnosis Gouty arthritis of foot- Primary 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 Essential hypertension, benign 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 Other esophagitis Chronic GERD Acute on chronic heart failure with preserved ejection fraction (CMS/HCC) (HCC) Essential tremor Senile purpura (CMS/HCC) (HCC) Other nonthrombocytopenic purpuras Sun-damaged skin Other chronic dermatitis due to solar radiation Muscle cramps Heart failure with preserved ejection fraction, unspecified HF chronicity (HCC) Gouty arthritis of foot documented in this encounter Discontinued Medications Medication Sig Discontinue Reason Start Date End Da te febuxostat (ULORIC) 40 mg tablet Take 1 tablet (40 mg total) by mouth daily Duplicate order 08/03/2023 10/26/2023 documented as of this encounter Care Teams Brewery Pumper Relationship Specialty Start Date End Date Pepper Morgan MD PCP - General 09/16/16 Hank Garibay MD [address] [facility] [address] [place] [address] Surgeon Orthopedic Surgery 03/27/17 Jacky Murry MD [address] [facility] [address] WARN[address] [place] [address] Ophthalmology 03/27/17 Puma Mckenzie MD [address] [facility] [address] [place] [address] Surgeon Orthopedic Surgery 07/11/19 Neha Jackson, PT Physical Therapist Physical Therapy 12/01/21 Stalin Arauz MD [address] [facility] [address] [place] [address] Consulting Physician Cardiology 12/08/22 Tiffany Rojas PA [address] [facility] [address] [place] [address] Gastroenterology 12/30/22 Klaus Deshpande MD [address] [facility] [address] [place] [address] Consulting Physician Neurology 06/13/23 documented as of this encounter
--- OUTSIDE RECORDS SUMMARY | 2024-06-18 18:49 | XMS_ITS | Encounter Summary ---
Author Organization [facility] Healthcare Address [address] [place] [address] Care Team Providers Care Enterostomal Nurse Name Role Phone Pepper Morgan MD Primary Care Provider + [phone] Hank Garibay MD Unavailable [phone] Jacky Murry MD Unavailable [phone] Puma Mckenzie MD Unavailable [phone] Neha Jackson PT Unavailable Unavailable Stalin Arauz MD Unavailable [phone] Tiffany Rojas Unavailable [phone] Klaus Deshpande MD Unavailable [phone] Encounter Details Date Type Department Care Team (Late st Contact Info) Description 11/01/2023 Telephone [employer] Salesperson at [address] [place] [phone] Hai Dalton MA Social History Tobacco Use Types Packs/Day Years Used Date Smoking Tobacco: Former Cigarettes 2 30 1 952 - 1982 Smokeless Tobacco: Never Alcohol Use Standard Drinks/Week Comments Not Currently 0 (1 standard drink = 0.6 oz pur e alcohol) [facility] Utilities Answer Date Recorded In the past 12 months has [employer], gas, oil, or water company threatened to [...] on file 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 And they are confused about her dosing of the metolazone and Lasix. Patient and her daughter are thinking you told them to take an extra metolazone for the day if her weight goes up 2lbs. She is already taking 5mg every day along with lasix 40mg bid. Please advise on med doses. documented in this encounter Plan of Treatment [...] on filedocumented in this encounter Care Teams Enterostomal Nurse Relationship Specialty Start Date End Date Pepper Morgan MD PCP - General 09/16/16 Hank Garibay MD [address] [facility] [address] [place] [address] Surgeon Orthopedic Surgery 03/27/17 Jacky Murry MD [address] [facility] [address] [place] [address] Ophthalmology 03/27/17 Puma Mckenzie MD [address] [facility] [address] [place] [address] Surgeon Orthopedic Surgery 07/11/19 Neha Jackson, PT Physical Therapist Physical Therapy 12/01/21 Stalin Arauz MD [address] [facility] [address] [place] [address] Consulting Physician Cardiology 12/08/22 Tiffany Rojas PA [address] [facility] [address] [place] [address] Gastroenterology 12/30/22 Klaus Deshpande MD [address] [facility] [address] [place] [address] Consulting Physician Neurology 06/13/23 documented as of this encounter
--- OUTSIDE RECORDS SUMMARY | 2024-06-18 18:49 | XMS_ITS | Encounter Summary ---
Author Organization formerly [facility] Address [address] [place] [address] Care Team Providers Care Conference Planning Manager Name Role Phone Pepper Morgan MD Primary Care Provider + [phone] Hank Garibay MD Unavailable [phone] Jacky Murry MD Unavailable [phone] Puma Mckenzie MD Unavailable [phone] Neha Jackson PT Unavailable Unavailable Stalin Arauz MD Unavailable [phone] Tiffany Rojas Unavailable [phone] Klaus Deshpande MD Unavailable [phone] Reason for Visit * Reason Comments Laceration Encounter Details Date Type Department Care Team (Late st Contact Info) Description 09/27/2023 2:42 PM CDT - 09/27/2023 3:19 PM CDT Emergency [facility] Emergency Department [address] [place] [address] Skin tear of right forearm without complication, initial encounter (Primary Dx) Discharge Disposition: Discharge to home or self care Social History Tobacco Use Types Packs/Day Years Used Date Smoking Tobacco: Former Cigarettes 2 30 1 952 - 1982 Smokeless Tobacco: Never Alcohol Use Standard Drinks/Week Comments Not Currently 0 (1 standard drink = 0.6 oz pur e alcohol) [facility] Utilities Answer Date Recorded In [...] often do you attend chur ch or druze services? 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 Gender Identity Not on file Sexual Orientation Not on file Occupation Industry Job Start Date Job End Date retired Not on file Not on file Not on file documented as of this encounter Last Filed Vital Signs Vital Sign Reading Time Taken Comments Blood Pressure 102/51 09/27/2023 2:41 PM CDT Pulse 77 09/27/2023 2:41 PM CDT Temperature 36.4 ??C (97.5 ??F) 09/27/2023 2:41 PM CD T Respiratory Rate 16 09/27/2023 2:41 PM CDT Oxygen Saturation 95% 09/27/2023 2:41 PM CDT Inhaled Oxygen Concentration - - Weight 82.6 kg (182 lb) 09/27/2023 2:41 PM CDT Height 152.4 cm (5') 09/27/2023 2:41 PM CDT Body Mass Index 35.54 09/27/2023 2:41 PM CDT documented in this encounter Discharge Instructions * Attachments The following attachments cannot be sent through Care Everywhere. * Skin Tear (Biodiesel Process Control Technician) ([place]) documented in this encounter Medications at Time of Discharge albuterol HFA (Proventil HFA) 90 mcg/actuation inhalerIndications: Mild persistent asthma, unspecified whether complicated Inhale 2 puffs every 6 (six) hours as needed for wheezing or shortness of breath 6.7 g 3 3 cetirizine (ZyrTEC) 10 mg tabletIndications:A ngioedema, subsequent encounter Take 1 tablet (10 mg total) by mouth nightly 90 tablet 3 3 cholecalciferol (VITAMIN D-3) 2000 unit tablet Take 1 tablet (2,000 Units total) by mouth daily spironolactone (ALDACTONE) 25 mg tablet Take 1 tablet (25 mg total) by mouth daily 30 tablet 11 4 07/25/19 25 aspirin 81 mg enteric coated tablet Take 1 tablet (81 mg total) by mouth daily 01/11/20 24 cephalexin (KEFLEX) 500 mg capsule Take 1 capsule (500 mg total) by mouth every 12 (twelve) hours 4 11/27/19 24 empagliflozin (JARDIANCE) 10 mg tablet Take 1 tablet (10 mg total) by mouth daily 30 tablet 11 3 06/06/20 24 febuxostat (ULORIC) 40 mg tablet Take 1 tablet (40 mg total) by mouth daily 4 10/26/19 24 fluticasone propion-salmeteroL (ADVAIR DISKUS) 100-50 mcg/dose diskus inhaler Inhale 1 puff 2 (two) times a day Rinse mouth with water after use. Do not swallow. 60 each 4 11/27/19 24 furosemide (LASIX) 40 mg tablet Take 1 tablet (40 mg total) by mouth 2 (two) times a day 60 tablet 4 10/31/19 24 metOLazone (ZAROXOLYN) 5 mg tabletIndications:P eripheral Edema due to Chronic Heart Failure Take 1 tablet (5 mg total) by mouth daily 30 tablet 4 10/30/19 24 ondansetron ODT (ZOFRAN-ODT) 4 mg disintegrating tablet Take 1 tablet (4 mg total) by mouth every 8 (eight) hours as needed for nausea or vomiting 20 tablet 1 4 02/08/[address] (PROTONIX) 40 mg EC tabletIndications:T reatment of Non-Bleeding Gastric Disorder Take 1 tablet (40 mg total) by mouth daily 90 tablet 2 4 01/11/20 24 polyethylene glycol (MIRALAX) 17 gram packetIndications:c onstipation Take 1 packet (17 g total) by mouth daily as needed for constipation 02/08/20 potassium chloride ER 20 mEq CR tablet Take 2 tablets (40 mEq total) by mouth 2 (two) times a day 120 tablet 11 4 03/16/20 24 pramipexole (MIRAPEX) 0.5 mg tabletIndications:R estless legs syndrome TAKE 1 TABLET BY MOUTH TWICE A DAY 180 tablet 1 4 01/28/20 24 propranoloL (INDERAL) 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:H ereditary essential tremor Take 1 tablet (20 mg total) by mouth 2 (two) times a day as needed (Tremor) 180 tablet 2 4 03/15/20 24 rivaroxaban (XARELTO) 20 mg tablet Take 1 tablet (20 mg total) by mouth daily 30 tablet 11 3 03/08/20 24 documented as of this encounter Discharge Disposition Disposition Code Departure Means Destination Comment s Discharge to home or self care documented in this encounter ED Notes * Marcus Kaur PA - 09/27/2023 3:06 PM CDT HPI Chief Complaint Patient presents with Laceration 87-year-old female past medical history of GERD, hypertension, RLS, PID, essential tremor, atrial fibrillation on Xarelto, and CHF presents with her sister with chief complaint of skin tear to the upper right forearm that continues to bleed. Patient reports that 2 days ago she cut her upper right fo rearm on a vacuum at a local car wash. Denies pain. Primary complaint is persistent bleeding despite dressing application. History provided by: Patient wood repatcher used: No Patient History: Patient Active Problem List Diagnosis Date Noted Skin tear of right forearm without complication 09/27/2023 Atherosclerosis of council arteries of extremities with intermittent claudication, bilateral legs (HCC) 07/31/2023 Acute congestive heart failure, unspecified heart failure type (HCC) 06/24/2023 Acute on chronic heart failure, unspecified heart failure type (HCC) 06/14/2023 [place]en of macula of both eyes 05/30/2023 Mild persistent asthma 03/13/2023 Morbid (severe) obesity due to excess calories (HCC) 02/07/2023 Hospital discharge follow-up 01/11/2023 Gait disturbance 11/11/2022 Chronic heart failure with preserved ejection fraction (CMS/HCC) (HCC) 07/25/2022 Postural kyphosis of cervicothoracic region 01/24/2022 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 11/16/2021 Peripheral arterial disease (HCC) 11/09/2021 Shortness of breath 04/21/2021 Atrial fibrillation (CMS/HCC) (HCC) 04/21/2021 Iron deficiency anemia, unspecified 08/08/2019 Bariatric surgery status 04/04/2017 Knee joint replacement status, bilateral 04/04/2017 Spinal stenosis of lumbar region with neurogenic claudication 12/17/2016 Macular hole 05/04/2016 History of malignant melanoma 02/10/2015 Essential tremor 11/02/2013 Chronic GERD 11/02/2013 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 11/02/2013 Restless legs syndrome 11/02/2013 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 CHF (congestive heart failure) (CMS/HCC) (HCC) Cough DVT (deep venous thrombosis) (CMS/HCC) ([facility]) 1976 upper left arm near [...] HIP ARTHROPLASTY Left 11/01/2021 Dr. Mckenzie, [facility], [facility]. Family History Problem Relation Age of Onset Cancer Other Family history of Cancer, unknown; Arthritis Other Family history of Arthritis; Abdominal Aortic Aneurysm Father COPD Father Social History Tobacco Use Smoking status: Former Current packs/day: 0.00 Average packs/day: 2.0 packs/day for 30.0 years (60.0 ttl pk-yrs) Types: Cigarettes Start date: 1951 Quit date: 1981 Years since quittin.3 Smokeless tobacco: Never Vaping Use Vaping status: Never Used Substance and Sexual Activity Alcohol use: Not Currently Drug use: Never Sexual activity: Defer Social History Social History Narrative Not on file Review of Systems Review of Systems All other systems reviewed negative. All available allergies, past medical history, past surgical history, social history, and medications reviewed from the medical record, nursing notes, and with patient Physical Exam ED Triage Vitals [09/27/23 1441] Temp Pulse Resp BP SpO2 36.4 ??C (97.5 ??F) 77 16 102/51 95 % Temp src Heart Rate Source Patient Position BP Location FiO2 (%) Temporal -- -- -- -- Height Height Method Weight Weight Method 1.524 m (5') Stated 82.6 kg (182 lb) Stated Physical Exam Vitals and nursing note reviewed. Constitutional: Appearance: Normal appearance. HENT: Head: Normocephalic. Right Ear: External ear normal. Left Ear: External ear normal. Nose: Nose normal. Mouth/Throat: Mouth: Mucous membranes are moist. Pharynx: Oropharynx is clear. Cardiovascular: Rate and Rhythm: Normal rate and regular rhythm. Pulses: Normal pulses. Heart sounds: Normal heart sounds. Pulmonary: Effort: Pulmonary effort is normal. Breath sounds: Normal breath sounds. Musculoskeletal: Comments: 5 cm long v-shaped skin tear to the proximal radial forearm. Negative for erythema, warmth, discharge, fluctuance, induration, or lymphangitic streaking. Skin: General: Skin is warm and dry. Neurological: General: No focal deficit present. Mental Status: She is alert and oriented to person, place, and time. Psychiatric: Mood and Affect: Mood normal. Behavior: Behavior normal. Thought Content: Thought content normal. Judgment: Judgment normal. Voice recognition software Fritter Direct was used to dictate and transcribe this document. Protozoology Teacher variances may occur. Despite proofreading, typographical errors may occur. MDM Medical Decision Making 87-year-old female presents with skin tear to the proximal right forearm. Concerned about persistent bleeding. See procedure note. Problems Addressed: Skin tear of right forearm without complication, initial encounter: acute illness or injury Final diagnoses: Skin tear of right forearm without complication, initial encounter Marcus Kaur PA 09/27/23 1516 Cosigned by Mimi Rangel MD at 09/27/2023 10:30 PM CDT Associated attestation - Mimi Rangel MD - 09/27/2023 10:30 PM CDT I agree with the PA's assessment and plan * Concetta Diaz RN - 09/27/2023 2:39 PM CDT Pt to ED for c/o a laceration on her right arm. Pt reports 2 days ago she cut it on the vacuum at the car wash. Pt went to urgent care where it was bandaged up and she was advised to keep that on for24 hours, she did that and it is still bleeding. Pt has bandage over laceration in triage. documented in this encounter Miscellaneous Notes * ED Procedure Note - Marcus Kaur PA - 09/27/2023 3:16 PM CDT Procedure Procedures Wound care: 5 cm long v-shaped skin tear to the proximal radial forearm. Cleansed with Restore Dermal Wound Cleanser. Dried with sterile 4x4s. Applied Surgicel, Telfa, 4x4s, and Yudith dressing. Patient toleratedwell. Aseptic technique utilized throughout procedure. Marcus Kaur PA 09/27/23 1518 documented in this encounter Plan of Treatment [...] as of this encounter Visit Diagnoses Diagnosis Skin tear of right forearm without complication, initial encounter- Primary Skin tear of right forearm without complication documented in this encounter Care Teams Conference Planning Manager Relationship Specialty Start Date End Date Pepper Morgan MD PCP - General 09/16/16 Hank Garibay MD [address] [facility] [address] WARN[address] [facility] [address] [place] [address] Surgeon Orthopedic Surgery 03/27/17 Jacky Murry MD [address] [facility] [address] [facility] [address] [place] [address] Ophthalmology 03/27/17 Puma Mckenzie MD [address] [facility] [address] [place] [address] Surgeon Orthopedic Surgery 07/11/19 Neha Jackson, KEVIN Physical Therapist Physical Therapy 12/01/21 Stalin Arauz MD [address] [facility] [address] [place] [address] Consulting Physician Cardiology 12/08/22 Tiffany Rojas PA [address] [facility] [address] [place] [address] Gastroenterology 12/30/22 Klaus Deshpande MD [address] [facility] [address] [place] [address] Consulting Physician Neurology 06/13/23 documented as of this encounter
--- OUTSIDE RECORDS SUMMARY | 2024-06-18 18:49 | XMS_ITS | Encounter Summary ---
Author Organization [facility] Healthcare Address [address] [place] [address] Care Team Providers Care Sexton Helper Name Role Phone Pepper Morgan MD Primary Care Provider +[phone] Hank Garibay MD Unavailable [phone] Jacky Murry MD Unavailable [phone] Puma Mckenzie MD Unavailable [phone] Neha Jackson PT Unavailable Unavailable Stalin Arauz MD Unavailable [phone] Tiffany Rojas Unavailable [phone] Klaus Deshpande MD Unavailable [phone] Reason for Visit * Reason Onset Date Comments Medication Problem 10/19/2023 Encounter Details Date Type Department Care Team (Late st Contact Info) Description 10/19/2023 Telephone [facility] [address] [place] [address] Pepper Morgan MD [address] [address] Medication Problem Social History Tobacco Use Types Packs/Day Years Used Date Smoking Tobacco: Former Cigarettes 2 30 1 952 - 1981 Smokeless Tobacco: Never Alcohol Use Standard Drinks/Week Comments Not Currently 0 (1 standard drink = 0.6 oz pur e alcohol) [facility] Utilities Answer Date Recorded In the past [...] on file 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 She said she has 1 pill left of the medicine and since she started it she has been shaking more. Patient has not been able to sleep either. Advised patient if she can finish her treatment of the medicine 1 more night that would be best forher. Also notified her that these are both common side effects that can occur. She voiced understanding. Patient said she will take her last pill today. * Telephone Encounter - Evelyn Dejesus - 10/19/2023 8:35 AM CDT Patient calling to state that she was prescribed dexamethasone 4mg and it caused shaking and not allowing her to sleep. Pt has one pill left and didn't know if she should take it. Please advise Pt cbn: [phone] documented in this encounter Plan of Treatment [...] on filedocumented in this encounter Care Teams Sexton Helper Relationship Specialty Start Date End Date Pepper Morgan MD PCP - General 09/16/16 Hank Garibay MD [address] [facility] [address] [place] [address] Surgeon Orthopedic Surgery 03/27/17 Jacky Murry MD [address] [facility] [address] [place] [address] Ophthalmology 03/27/17 Puma Mckenzie MD [address] [facility] [address] [place] [address] Surgeon Orthopedic Surgery 07/11/19 Neha Jackson, PT Physical Therapist Physical Therapy 12/01/21 Stalin Arauz MD [address] [facility] [address] [place] [address] Consulting Physician Cardiology 12/08/22 Tiffany Rojas PA [address] [facility] [address] [place] [address] Gastroenterology 12/30/22 Klaus Deshpande MD [address] [facility] [address] [place] [place] [address] Consulting Physician Neurology 06/13/23 documented as of this encounter
--- OUTSIDE RECORDS SUMMARY | 2024-06-18 18:50 | XMS_ITS | Encounter Summary ---
Author Organization [facility] Healthcare Address [address] [place] [address] Care Team Providers Care Scraper Operator Name Role Phone Pepper Morgan MD Primary Care Provider + [phone] Hank Garibay MD Unavailable [phone] Jacky Murry MD Unavailable [phone] Puma Mckenzie MD Unavailable [phone] Neha Jackson PT Unavailable Unavailable Stalin Arauz MD Unavailable [phone] Tiffany Rojas Unavailable [phone] Klaus Deshpande MD Unavailable [phone] Encounter Details Date Type Department Care Team (Late st Contact Info) Description 07/26/2023 [facility] Post Discharge Follow up phone call [facility] [address] [place] [address] Delilah Perez, XU Social History Tobacco Use Types Packs/Day Years Used Date Smoking Tobacco: Former Cigarettes 2 30 1 952 - 1981 Smokeless Tobacco: Never Alcohol Use Standard Drinks/Week Comments Not Currently 0 (1 standard drink = 0.6 oz pur e alcohol) [facility] Utilities Answer Date Recorded In the past 12 months has [employer], gas, oil, or water [employer] threatened to shut off services in your [...] in a residential (including now)? No 07/24/2023 Personal Safety Answer Date Recorded Have you ever been in or are you currently in a harmful physical or emotional relationship or is someone making you feel afraid or unsafe? 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 Gender Identity Not on file Sexual Orientation [...] on filedocumented in this encounter Care Teams Scraper Operator Relationship Specialty Start Date End Date Pepper Morgan MD PCP - General 09/16/16 Hank Garibay MD [address] [facility] [address] [place] [address] Surgeon Orthopedic Surgery 03/27/17 Jacky Murry MD [address] [facility] [address] [place] [address] Ophthalmology 03/27/17 Puma Mckenzie MD [address] [facility] [address] [facility] [address] [place] [address] Surgeon Orthopedic Surgery 07/11/19 Neha Jackson, PT Physical Therapist Physical Therapy 12/01/21 Stalin Arauz MD [address] [facility] [address] [place] [address] Consulting Physician Cardiology 12/08/22 Tiffany Rojas PA [address] [facility] [address] [place] [address] Gastroenterology 12/30/22 Klaus Deshpande MD [address] [facility] [address] [place] [address] Consulting Physician Neurology 06/13/23 documented as of this encounter
--- OUTSIDE RECORDS SUMMARY | 2024-06-18 18:50 | XMS_ITS | Encounter Summary ---
Author Organization [facility] Address [address] [place] [address] Care Team Providers Care Commutator Inspector Name Role Phone Pepper Morgan MD Primary Care Provider + [phone] Hank Garibay MD Unavailable [phone] Jacky Murry MD Unavailable [phone] Puma Mckenzie MD Unavailable [phone] Neha Jackson PT Unavailable Unavailable Stalin Arauz MD Unavailable [phone] Tiffany Rojas Unavailable [phone] Klaus Deshpande MD Unavailable [phone] Reason for Referral * Cardiology (Routine) - Closed Specialty Diagnoses / Procedures Referred By Contac t Referred To Contact Diagnoses Chronic atrial fibrillation (HCC) Procedures 48 HR Holter Monitor Stalin Arauz MD [address] [place] [address] [address] Phone: tel: fax: [address] [address] Referral ID Status Reason Start Date Expiration Date Visits Re quested Visits Authorized [id number] Closed 07/31/2023 08/29/2024 1 1 ISION GRINDER Reason for Visit * Cardiology (Routine) - Closed Specialty Diagnoses / Procedures Referred By Contnahun t Referred To Contact Diagnoses Chronic atrial fibrillation (HCC) Procedures 48 HR Holter Monitor Stalin Arauz MD [address] [place] [address] Phone: tel: fax: [address] [phone] Referral ID Status Reason Start Date Expiration Date Visits Re quested Visits Authorized [id number] Closed 07/31/2023 08/29/2024 1 1 Encounter Details Date Type Department Care Team (Latest Contact Info) Description 08/18/2023 11:58 AM PRECISION GRINDER - 08/18/2023 11:59 PM PRECISION GRINDER Hospital Encounter [facility] Cardiology [address] [place] [address] Chronic atrial fibrillation (HCC) Discharge Disposition: Discharge to home or self care Social History Tobacco Use Types Packs/Day Years Used Date Smoking Tobacco: Former Cigarettes 2 1981 Smokeless Tobacco: Never Alcohol Use Standard Drinks/Week Comments Not Currently 0 (1 standard drink = 0.6 oz pur e alcohol) [facility] Utilities Answer Date Recorded In the past 12 months has [employer], gas, oil, or water [employer] threatened to shut off services in your [...] often do you attend chur ch or adventism services? Never 07/24/2023 Do you belong to [...] on file Legal Sex Female 4:33 AM PRECISION GRINDER Gender Identity Not on file Sexual [...] mg total) by mouth daily 01/11/20 24 empagliflozin (JARDIANCE) 10 mg tablet Take [...] use. Do not swallow. 1 each 4 3 09/06/19 24 furosemide (LASIX) 40 mg tablet Take 1 tablet (40 mg total) by mouth 2 (two) times a day 60 tablet 11 4 10/31/19 24 metOLazone (ZAROXOLYN) 2.5 mg tabletIndications:P eripheral Edema due to Chronic Heart Failure Take 2 tablets (5 mg total) by mouth daily 08/31/19 24 ondansetron ODT (ZOFRAN-ODT) 4 mg disintegrating [...] mouth daily as needed for constipation 02/08/20 24 potassium chloride ER 20 mEq CR tablet Take 2 tablets (40 mEq total) by mouth 2 (two) times a day 120 tablet 11 4 03/16/20 24 pramipexole (MIRAPEX) 0.5 mg tabletIndications:I diopathic Parkinsonism,Restle ss Legs Syndrome Take 1 tablet (0.5 mg total) by mouth 2 (two) times a day 60 tablet 3 3 08/24/19 24 propranoloL (INDERAL) 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:H ereditary [...] Procedure Name Priority Date/Time Associated Diagnosis Comments HOLTER MONITOR 48 HR Routine 08/18/2023 12:28 PM PRECISION GRINDER Chronic atrial fibrillation (HCC) documented in this encounter Results * 48 HR Holter Monitor (08/18/2023 12:28 PM PRECISION GRINDER) Anatomical Region Laterality Modality Electrocardiogra phy 08/18/2023 2:00 PM PRECISION GRINDER Narrative 08/23/2023 9:50 AM PRECISION GRINDER [address] [place] [address] HOLTER MONITOR Patient Name: TESS BENEDICT : 1935 Study Date: 08/18/2023 2:00:00 PM Gender: F Tech: ??Ref Provider: STALIN ARAUZ Height(Cm): ??BSA: Weight(Kg): ? Order Provider: STALIN ARAUZ - PROCEDURES: Holter Report: Holter Monitor Report. INDICATIONS: Atrial Fibrillation Chronic I48.2. FINDINGS: Protocol: ??Recording Duration (Ordered): [id number] ??Date Recorded: 2023-08-18 14:00:00 CONCLUSIONS: 1. Predominant rhythm is atrial fibrillation [...] patient recorded no symptoms during the study. Electronically Signed By: Dr Saud Ayers 2023-08-23 09:49:08 PRECISION GRINDER Procedure Note Saud Ayers MD - 08/23/[address] [place] [address] HOLTER MONITOR Patient Name: TESS BENEDICT : 1935 Study Date: 08/18/2023 2:00:00 PM Gender: F Tech: Ref Provider: STALIN ARAUZ Height(Cm): BSA: Weight(Kg): Order Provider: STALIN ARAUZ - PROCEDURES: Holter Report: Holter Monitor Report. INDICATIONS: Atrial Fibrillation Chronic I48.2. FINDINGS: Protocol: Recording Duration (Ordered): [id number] Date Recorded: 2023-08-18 14:00:00 CONCLUSIONS: 1. 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 Average heart rate of 84 beats per minute. Total monitoring time of 48 hours. 2. Heart rate and rate variability is appropriate. 3. No prolonged pauses. 4. Rare PVCs with 90 PVCs corresponding to less than 1% total beats. Many of these so-called PVCs could be due to Billy phenomena oraberrant conduction. 5. The patient recorded no symptoms during the study. Electronically Signed By: Dr Saud Ayers 2023-08-23 09:49:08 PRECISION GRINDER Stalin Arauz MD [facility] PROCEDURES Final Result documented in this encounter Visit Diagnoses Diagnosis Chronic atrial fibrillation (HCC) Atrial fibrillation documented in this encounter Care Teams Commutator Inspector Relationship Specialty Start Date End Date Pepper Morgan MD PCP - General 09/16/16 Hank Garibay MD 4 [facility] [address] [place] [address] Surgeon Orthopedic Surgery 03/27/17 Jacky Murry MD [address] [place] [address] [address] [place] [address] Ophthalmology 03/27/17 Puma Mckenzie MD [address] [place] [address] [address] [place] [address] Surgeon Orthopedic Surgery 07/11/19 Neha Jackson, PT Physical Therapist Physical Therapy 12/01/21 Stalin Arauz MD 2 [facility] [address] [place] [address] Consulting Physician Cardiology 12/08/22 Tiffany Rojas PA 4 [facility] [address] [place] [address] Gastroenterology 12/30/22 Klaus Deshpande MD 4 [facility] [address] [place] [address] Consulting Physician Neurology 06/13/23 documented as of this encounter
--- OUTSIDE RECORDS SUMMARY | 2024-06-18 18:50 | XMS_ITS | Encounter Summary ---
Author Organization [facility] Address [address] [place] [address] Care Team Providers Care Lighter Name Role Phone Pepper Morgan MD Primary Care Provider + [phone] Hank Garibay MD Unavailable [phone] Jacky Murry MD Unavailable [phone] Puma Mckenzie MD Unavailable [phone] Neha Jackson PT Unavailable Unavailable Stalin Arauz MD Unavailable [phone] Tiffany Rojas Unavailable [phone] Klaus Deshpande MD Unavailable [phone] Reason for Referral * Diagnostic Imaging (Routine) - Closed Specialty Diagnoses / Procedures Referred By Contac t Referred To Contact Diagnoses Peripheral arterial disease (HCC) Procedures [facility] Stalin Arauz MD [address] [place] [address] [address] Phone: tel: fax: [address] [phone] Referral ID Status Reason Start Date Expiration Date Visits Re quested Visits Authorized [id number] Closed 02/07/2023 03/08/2024 1 1 SEAT UPHOLSTERER Reason for Visit * Diagnostic Imaging (Routine) - Closed Specialty Diagnoses / Procedures Referred By Olga t Referred To Contact Diagnoses Peripheral arterial disease (HCC) Procedures Stalin Leslie MD [address] [place] [address] Phone: tel: fax: [address] [phone] Referral ID Status Reason Start Date Expiration Date Visits Re quested Visits Authorized [id number] Closed 02/07/2023 03/08/2024 1 1 Encounter Details Date Type Department Care Team (Latest Contact Info) Description 08/18/2023 11:57 AM CAR SEAT UPHOLSTERER - 08/18/2023 11:59 PM CAR SEAT UPHOLSTERER Hospital Encounter [facility] [address] [place] [address] Peripheral arterial disease (HCC) Discharge Disposition: Discharge to home or self care Social History Tobacco Use Types Packs/Day Years Used Date Smoking Tobacco: Former Cigarettes 1981 Smokeless Tobacco: Never Alcohol Use Standard Drinks/Week Comments Not Currently 0 (1 standard drink = 0.6 oz pur e alcohol) [facility] Utilities Answer Date Recorded In the past 12 months has [employer], gas, oil, or water [employer] threatened to shut off services in your [...] often do you attend chur ch or sabianist services? Never 07/24/2023 Do you belong to any clubs o r organizations such as taoism groups, unions, fraternal or athletic groups, or [...] in a halfway (including now)? No 07/24/2023 Personal Safety Answer Date Recorded Have you ever been in or are you currently in a harmful physical or emotional relationship or is someone making you feel afraid or unsafe? Denies 07/22/2023 Comments No Sex and Gender Information Value Date Recorded Sex Assigned at Not on file Legal Sex Female 4:33 AM CAR SEAT UPHOLSTERER Gender Identity Not on file Sexual Orientation [...] JONATHAN Schedule Routine, Read Routine (OP Routine) 08/18/2023 12:30 PM CAR SEAT UPHOLSTERER Peripheral arterial disease (HCC) documented in this encounter Results * US JONATHAN (08/18/2023 12:30 PM CAR SEAT UPHOLSTERER) Anatomical Region Laterality Modality Vascular N/A Ultrasound 08/18/2023 12:0 9 PM CAR SEAT UPHOLSTERER Narrative 09/06/2023 3:01 PM CDT [address] [place] [address] Ankle Brachial Index Report Patient Name: TESS BENEDICT I ?? : 1935 (87y 8m) ??Gender: F Study Date: 08-18-2023 12:09:00 PM Supervisor Roving: Order Provider: STALIN ARAUZ Quality: Adequate Ref Provider: STALIN ARAUZ ?? PROCEDURES: Arterial Report: A bilateral extremities ankle/brachial index was performed. ?? INDICATIONS: Peripheral Vascular Disease. ?? CONCLUSIONS: 1. Moderate to severe arterial insufficiency at rest in both lower extremities with ankle-brachial index 0.57 on the right and 0.64 on the left. 2. Monophasic to biphasic waveforms at the ankle bilaterally. ?? FINDINGS: Electronically Signed By: Stalin Arauz MD 2023-09-06 15:00:53 CDT Procedure Note Stalin Arauz MD - 09/06/[address] [place] [address] Ankle Brachial Index Report Patient Name: TESS BENEDICT I : 1935 (87y 8m) Gender: F Study Date: 08-18-2023 12:09:00 PM Supervisor Roving: Order Provider: STALIN ARAUZ Quality: Adequate Ref Provider: STALIN ARAUZ PROCEDURES: Arterial Report: A bilateral extremities ankle/brachial index wasperformed. INDICATIONS: Peripheral Vascular Disease. CONCLUSIONS: 1. Moderate to severe arterial insufficiency at rest in both lowerextremities with ankle-brachial index 0.57 on the right and 0.64 on the left. 2. Monophasic to biphasic waveforms at the ankle bilaterally. FINDINGS: Electronically Signed By: Stalin Arauz MD 2023-09-06 15:00:53 CDT Stalin Arauz MD IMG US PROCEDURES Final Result documented in this encounter Visit Diagnoses Diagnosis Peripheral arterial disease (HCC) Unspecified peripheral vascular disease documented in this encounter Care Teams Lighter Relationship Specialty Start Date End Date Pepper Morgan MD PCP - General 09/16/16 Hank Garibay MD [address] [facility] [address] [address] Surgeon Orthopedic Surgery 03/27/17 Jacky Murry MD [address] [facility] [address] [address] Ophthalmology 03/27/17 Puma Mckenzie MD [address] [place] [address] [address] [address] Surgeon Orthopedic Surgery 07/11/19 Neha Jackson, PT Physical Therapist Physical Therapy 12/01/21 Stalin Arauz MD [address] [facility] [address] [place] [address] Consulting Physician Cardiology 12/08/22 Tiffany Rojas PA [address] [place] [address] [place] [address] Gastroenterology 12/30/22 Klaus Deshpande MD [address] [place] [address] [address] [place] [address] Consulting Physician Neurology 06/13/23 documented as of this encounter
--- OUTSIDE RECORDS SUMMARY | 2024-06-18 18:50 | XMS_ITS | Encounter Summary ---
Author Organization [facility] Healthcare Address [address] [place] [address] Care Team Providers Care Dye [facility] Vat Worker Name Role Phone Pepper Morgan MD Primary Care Provider + [phone] Hank Garibay MD Unavailable [phone] Jacky Murry MD Unavailable [phone] Puma Mckenzie MD Unavailable [phone] Neha Jackson PT Unavailable Unavailable Stalin Arauz MD Unavailable [phone] Tiffany Rojas PA Unavailable [phone] Klaus Deshpande MD Unavailable [phone] Reason for Visit * Reason Comments Shortness of Breath * Auth/Cert (Routine) Specialty Diagnoses / Procedures Referred By Contac t Referred To Contact Diagnoses Shortness of breath Acute systolic congestive heart failure (CMS/HCC) (HCC) Acute congestive heart failure, unspecified heart failure type (HCC) Procedures na Referral ID Status Reason Start Date Expiration Date Visits Re quested Visits Authorized [id number] 1 1 Encounter Details Date Type Department Care Team (Late st Contact Info) Description 07/22/2023 10:28 AM ENVIRONMENTAL HEALTH SAFETY ENGINEER - 07/25/2023 1:54 PM ENVIRONMENTAL HEALTH SAFETY ENGINEER Hospital Encounter [address] [id number] [place] [address] [place] [address] [place] [address] [facility] [address] [place] [address] [place] [address] [facility] [address] [place], [place] [id number] Shortness of breath (Primary Dx); Acute systolic congestive heart failure (CMS/HCC) (HCC) Discharge Disposition: Discharge to home or self care Social History Tobacco Use Types Packs/Day Years Used Date Smoking Tobacco: Former Cigarettes 1981 Smokeless Tobacco: Never Alcohol Use Standard Drinks/Week Comments Not Currently 0 (1 standard drink = 0.6 oz pur e alcohol) [facility] [employer] Answer Date Recorded In the past 12 months has [employer], gas, oil, or water [employer] threatened to shut off services in your [...] do you attend [facility] or yarsanism services? Never 07/24/2023 Do you belong to any clubs o r organizations such as muslim groups, unions, fraternal or athletic groups, or [...] on file Legal Sex Female 4:33 AM ENVIRONMENTAL HEALTH SAFETY ENGINEER Gender Identity Not on file Sexual Orientation Not on file Occupation Industry Job Start Date Job End Date retired Not on file Not on file Not on file documented as of this encounter Last Filed Vital Signs Vital Sign Reading Time Taken Comments Blood Pressure 101/63 07/25/2023 11:30 AM ENVIRONMENTAL HEALTH SAFETY ENGINEER Pulse 85 07/25/2023 11:30 AM ENVIRONMENTAL HEALTH SAFETY ENGINEER Temperature 36.9 ??C (98.4 ??F) 07/25/2023 11:[address] Respiratory Rate 18 07/25/2023 11:30 AM ENVIRONMENTAL HEALTH SAFETY ENGINEER Oxygen Saturation 93% 07/25/2023 11:30 AM ENVIRONMENTAL HEALTH SAFETY ENGINEER Inhaled Oxygen Concentration - - Weight 85.7 kg (188 lb 15 oz) 07/25/2023 6:45 AM ENVIRONMENTAL HEALTH SAFETY ENGINEER Height 152.4 cm (5') 07/22/2023 4:39 PM ENVIRONMENTAL HEALTH SAFETY ENGINEER Body Mass Index 36.9 07/22/2023 4:39 PM ENVIRONMENTAL HEALTH SAFETY ENGINEER documented in this encounter Discharge Summaries * Elizabeth Villarreal MD - 07/25/2023 1:16 PM CST Inpatient Discharge Summary BRIEF OVERVIEW Admitting Provider: Moises Guajardo MD Discharge Provider: Elizabeth Villarreal MD Primary Care Physician at Discharge: Pepper Morgan MD [phone] Admission Date: 07/22/2023 Discharge Date: 07/25/2023 Primary Discharge Diagnoses: Shortness of breath on admission, congestive heart failure exacerbation related. Diastolic dysfunction, per 06/15/2023 2D echo, with exacerbation. Nausea, resolved. Asthma, not in exacerbation. Trivial mitral regurgitation, mild aortic stenosis, per 06/15/2023 2D echo. Hypertension. Atrial fibrillation, rate controlled. GERD. PVD. AIF on 02/18/2022 showed peripheral [...] the use of re-entry device. Restless leg syndrome. Essential tremor. Obesity. CKD, stage III. Troponin trend of 43, 20, 21, 26, with delta of -23, -22, CKD related. Anemia. Microcytosis. DETAILS OF HOSPITAL STAY Hospital Course: Patient was admitted on 07/22/2023 for shortness of breath due to congestive heart failure exacerbation. Chest x-ray was with results as below. 06/15/2023 2D echo showed diastolic dysfunction; she was on IV Lasix, Zaroxolyn; on 07/23/2023 Aldactone was started. Cardiology service was consulted. For nausea, she was on Zofran as needed. Regarding asthma, she was not in exacerbation, was on Breo, albuterol MDI as needed. For hypertension, she was on Coreg, IV Lasix, Zaroxolyn; on 07/23/2023 Aldactone was started; BP was controlled. Regarding atrial fibrillation, rate was controlled, patient was on Xarelto. For GERD, she was on Protonix. For restless leg syndrome, she was on Mirapex. For essential tremor, she was on propranolol as needed. Lab work showed CKD with creatinine of 1.46 with GFR of 35, anemia with hemoglobin of 8.2. Troponin trend was 43, 20, 21, 26, with delta of -23, -22, CKD related. Regarding microcytosis, on 07/18/2023 iron panel showed low iron, low transferrin saturation. Overall, patient continued to do well. Was seen, examined and discharged to home on 07/25/2023. Operative Procedures Performed: None. Diagnostic Studies: 07/22/2023 chest x-ray showing bilateral hilar enlargement. Discharge Details Physical Exam at Discharge: Per progress note. Discharge Condition: Shortness of breath improved, breathing is back to baseline. No nausea. Afebrile. Stable. Vitals: 07/25/23 0645 07/25/23 0753 07/25/23 1058 07/25/23 1130 BP: 131/67 101/63 BP Location: Right arm Right arm Patient Position: Sitting Lying Pulse: 79 85 Resp: 18 18 Temp: 36.5 ??C (97.7 ??F) 36.9 ??C (98.4 ??F) TempSrc: Oral Oral SpO2: 95% 95% 93% Weight: 85.7 kg (188 lb 15 oz) Height: Discharge Disposition: Home. Code Status at Discharge: Full Code. Discharge Instructions: Activity Instructions Discharge activity: Resume normal activity Advance as tolerated. Diet Instructions Adult Discharge Diet Diet Type: Other (specify) Explanatory Comment: Low-fat/low-cholesterol, low-sodium. Other Instructions Call provider for: difficulty breathing or chest pain Call provider for: extreme fatigue Call provider for: persistent dizziness or light-headedness Call provider for: headache, visual disturbances, weakness and speech changes Discharge Medications: CONTINUE these medications which have NOT CHANGED Details albuterol HFA (Proventil HFA) 90 mcg/actuation inhaler Inhale 2 puffs every 6 (six) hours as neededfor wheezing or shortness of breath Qty: 6.7 g, Refills: 3 Associated Diagnoses: Mild persistent asthma, unspecified whether complicated aspirin 81 mg enteric coated tablet Take 1 tablet (81 mg total) by mouth daily carvediloL (COREG) 6.25 mg tablet Take 1 tablet (6.25 mg total) by mouth 2 (two) times a day with meals Qty: 180 tablet, Refills: 2 cetirizine (ZyrTEC) 10 mg tablet Take 1 tablet (10 mg total) by mouth nightly Qty: 90 tablet, Refills: 3 Associated Diagnoses: Angioedema, subsequent encounter cholecalciferol (VITAMIN D-3) 2000 unit tablet Take 1 tablet (2,000 Units total) by mouth daily empagliflozin (JARDIANCE) 10 mg tablet Take 1 tablet (10 mg total) by mouth daily Qty: 30 tablet, Refills: 11 fluticasone propion-salmeteroL (ADVAIR DISKUS) 100-50 mcg/dose diskus inhaler Inhale 1 puff 2 (two)times a day Rinse mouth with water after use. Do not swallow. Qty: 1 each, Refills: 4 furosemide (LASIX) 40 mg tablet Take 1 tablet (40 mg total) by mouth 2 (two) times a day Qty: 60 tablet, Refills: 11 metOLazone (ZAROXOLYN) 2.5 mg tablet Take 2 tablets (5 mg total) by mouth daily pantoprazole DR (PROTONIX) 40 mg EC tablet Take 1 tablet (40 mg total) by mouth daily Qty: 90 tablet, Refills: 2 Associated Diagnoses: Chronic GERD; Microcytic anemia polyethylene glycol (MIRALAX) 17 gram packet Take 1 packet (17 g total) by mouth daily as needed for constipation potassium chloride ER 20 mEq CR tablet Take 2 tablets (40 mEq total) by mouth 2 (two) times a day Qty: 120 tablet, Refills: 11 pramipexole (MIRAPEX) 0.5 mg tablet Take 1 tablet (0.5 mg total) by mouth 2 (two) times a day Qty: 60 tablet, Refills: 3 Comments: Note dosage change December 08, 2022 Associated Diagnoses: Restless legs syndrome propranoloL (INDERAL) 20 mg tablet Take 1 tablet (20 mg total) by mouth 2 (two) times a day as needed (Tremor) Qty: 180 tablet, Refills: 2 Associated Diagnoses: Hereditary essential tremor rivaroxaban (XARELTO) 20 mg tablet Take 1 tablet (20 mg total) by mouth daily Qty: 30 tablet, Refills: 11 Comments: Please put on file, she will come when needed. She is getting this from her certified prosthetist's office START taking these medications Details spironolactone (ALDACTONE) 25 mg tablet Take 1 tablet (25 mg total) by mouth daily Qty: 30 tablet, Refills: 11 STOP taking these medications felodipine (PLENDIL) 5 mg 24 hr tablet Comments: Reason for Stopping: Outpatient Follow-Up: Future Appointments Date Time Provider Department Center 07/31/2023 9:00 AM Stalin Arauz MD [facility] CAR 122 PSA 08/03/2023 8:30 AM Jadyn Hobson PA [facility] OS 130B Specialty 08/18/2023 12:30 PM [email or web address] Main 08/31/2023 9:00 AM Klaus Deshpande MD NA [facility] Specialty 09/15/2023 1:30 PM To Mauricio MD [facility] 10/23/2023 10:30 AM [email or web address] [facility] Main 12/15/2023 9:20 AM Lyndsay Joshi MD [facility] 01/11/2024 10:20 AM Pepper Morgan MD [facility] IM PSA 1. Stalin Arauz MD [address] [place] [id number] [facility] check next week, Cardiology clinic Elizabeth Villarreal MD Discharge Time: 36 minutes. RONMENTAL HEALTH SAFETY ENGINEER documented in this encounter Medications at Time of Discharge albuterol HFA (Proventil HFA) 90 mcg/actuation inhalerIndication s:Mild persistent asthma, unspecified whether complicated Inhale 2 puffs every 6 (six) hours as needed for wheezing or shortness of breath 6.7 g 3 06/13/2023 cetirizine (ZyrTEC) 10 mg tabletIndications :Angioedema, subsequent encounter Take 1 tablet (10 mg total) by mouth nightly 90 tablet 3 12/08/2022 cholecalciferol (VITAMIN D-3) 2000 unit tablet Take 1 tablet (2,000 Units total) by mouth daily spironolactone (ALDACTONE) 25 mg tablet Take 1 tablet (25 mg total) by mouth daily 30 tablet 11 07/26/2023 5 aspirin 81 mg enteric coated tablet Take 1 tablet (81 mg total) by mouth daily 4 carvediloL (COREG) 6.25 mg tablet Take 1 tablet (6.25 mg total) by mouth 2 (two) times a day with meals 180 tablet 2 07/20/2023 4 empagliflozin (JARDIANCE) 10 mg tablet Take 1 tablet (10 mg total) by mouth daily 30 tablet 11 05/29/2023 4 fluticasone propion-salmetero L (ADVAIR DISKUS) 100-50 mcg/dose diskus inhaler Inhale 1 puff 2 (two) times a day Rinse mouth with water after use. Do not swallow. 1 each 4 03/09/2023 4 furosemide (LASIX) 40 mg tablet Take 1 tablet (40 mg total) by mouth 2 (two) times a day 60 tablet 11 06/26/2023 4 metOLazone (ZAROXOLYN) 2.5 mg tabletIndications :Peripheral Edema due to Chronic Heart Failure Take 2 tablets (5 mg total) by mouth daily [address] (PROTONIX) 40 mg EC tabletIndications :Treatment of Non-Bleeding Gastric Disorder Take 1 tablet (40 mg total) by mouth daily 90 tablet 2 07/13/2023 4 polyethylene glycol (MIRALAX) 17 gram packetIndications :constipation Take 1 packet (17 g total) by mouth daily as needed for constipation 4 potassium chloride ER 20 mEq CR tablet Take 2 tablets (40 mEq total) by mouth 2 (two) times a day 120 tablet 11 07/19/2023 4 pramipexole (MIRAPEX) 0.5 mg tabletIndications :Idiopathic Parkinsonism,Rest less Legs Syndrome Take 1 tablet (0.5 mg total) by mouth 2 (two) times a day 60 tablet 3 05/25/2023 4 propranoloL (INDERAL) 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 :Hereditary essential tremor Take 1 tablet (20 mg total) by mouth 2 (two) times a day as needed (Tremor) 180 tablet 2 07/13/2023 4 rivaroxaban (XARELTO) 20 mg tablet Take 1 tablet (20 mg total) by mouth daily 30 tablet 11 12/08/2022 4 documented as of this encounter Ordered Prescriptions Prescription Sig Dispense Quantity Refills Last Filled Start Date End Date spironolactone (ALDACTONE) 25 mg tablet Take 1 tablet (25 mg total) by mouth daily 30 tablet 11 07/26/2023 07/25/2024 documented in this encounter Discharge Disposition Disposition Code Departure Means Destination Comment s Discharge to home or self care Wheelchair documented in this encounter Progress Notes * Carlos Lakhani NP - 07/25/2023 11:16 AM CST Cardiology Progress Note 07/25/23 Symptoms: Pt seen lying in bed improved sob d/w pt and daughter. All questions answered Tele: NSR 80s Vital Signs: Patient Vital Signs for the past 24 hrs: BP MAP (mmHg) Temp Temp src Pulse Resp SpO2 Weight 07/25/23 1058 -- -- -- -- -- -- 95 % -- 07/25/23 0753 131/67 88 36.5 ??C (97.7 ??F) Oral 79 18 95 % -- 07/25/23 0645 -- -- -- -- -- -- -- 85.7 kg (188 lb 15 oz) 07/25/23 0456 110/57 69 36.6 ??C (97.9 ??F) Oral (!) 45 16 93 % -- 07/25/23 0019 (!) 97/43 55 36.5 ??C (97.7 ??F) Oral 67 18 96 % -- 07/24/23 205 97/67 75 36.6 ??C (97.9 ??F) Oral 72 18 93 % -- 07/24/23 1716 128/68 104 36.4 ??C (97.6 ??F) Oral 84 20 95 % -- 07/24/23 1122 100/68 77 36.5 ??C (97.7 ??F) Oral 71 18 95 % -- Intake/Output Summary (Last 24 hours) at 07/25/2023 1116 Last data filed at 07/25/2023 0850 Gross per 24 hour Intake -- Output 1900 ml Net -1900 ml Wt Readings from Last 3 Encounters: 07/25/23 85.7 kg (188 lb 15 oz) 07/19/23 88 kg (194 lb) 07/13/23 88.5 kg (195 lb) Physical Exam: Lungs: Decreased breath sounds bilaterally with exp wheezes Cardiac: PMI and JVP normal, S1 and S2 normal, no murmur, no gallop or rub Abd: Soft, nontender, BS active, no hepatosplenomegaly or masses, no abdominal bruit or enlarged aortic pulsation Extremities: No clubbing, cyanosis. No edema. Femoral pulses 2+. Pedal pulses 2+ Current Medications: Current Facility-Administered Medications Medication Dose Route Frequency Provider Last Rate Last Admin acetaminophen (TYLENOL) tablet 650 mg 650 mg oral Q6H PRN Florinda Haile NP 650 mg at 07/24/23 0858 al & mag hydroxide heimwajijxx-qxqdyhbrwfupgyk-ynusvsios-nystatin (MAGIC MOUTHWASH) oral suspension 1-1-1-1 15 mL 15 mL swish & spit Q4H PRN Elizabeth Villarreal MD albuterol HFA (PROVENTIL HFA,VENTOLIN HFA,PROAIR HFA) 90 mcg/actuation inhaler 2 puff 2 puff inhalation Q6H PRN (RT) Mich Sheppard MD carvediloL (COREG) tablet 6.25 mg 6.25 mg oral BID with meals (bkfst, dinner) Mich Sheppard MD 6.25 mg at 07/24/23 0844 cetirizine (ZyrTEC) tablet 10 mg 10 mg oral Nightly Florinda Haile NP 10 mg at 07/23/23 2131 cholecalciferol (VITAMIN D-3) tablet 2,000 Units 2,000 Units oral Daily Florinda Haile NP 2,000Units at 07/24/23 0844 dexAMETHasone (DECADRON) injection solution 20 mg 20 mg intravenous Once PRN Rahat Harris MD diphenhydrAMINE (BENADRYL) 50 mg/mL injection 50 mg 50 mg intravenous Once PRN Rahat Harris MD empagliflozin (JARDIANCE) tablet 10 mg 10 mg oral Daily Florinda Haile NP 10 mg at 07/24/23 0844 EPINEPHrine 1 mg/mL preservative free injection 0.3 mg 0.3 mg intramuscular Once PRN Rahat Harris MD fluticasone furoate-vilanteroL (BREO ELLIPTA) 100-25 mcg/dose inhaler 1 puff 1 puff inhalation Daily (RT) Florinda Haile NP 1 puff at 07/23/23 104 furosemide (LASIX) 10 mg/mL injection 40 mg 40 mg intravenous Q12H GLORIA Mich Sheppard MD 40 mg at 07/24/23 08 methylPREDNISolone sodium succinate (SOLU-medrol) preservative free injection 125 mg 125 mg intravenous Once PRN Rahat Harris MD metOLazone (ZAROXOLYN) tablet 5 mg 5 mg oral Daily Mich Sheppard MD 5 mg at 07/24/23 08 ondansetron (ZOFRAN) injection 4 mg 4 mg intravenous Q6H PRN Florinda Haile NP 4 mg at [address] (PROTONIX) extended release tablet 40 mg 40 mg oral Daily Mich Sheppard MD 40 mg at 07/24/23 0844 polyethylene glycol (MIRALAX) packet 17 g 17 g oral Daily PRN Florinda Haile NP 17 g at 07/24/23 0858 potassium chloride ER (KLOR-CON) extended release tablet 40 mEq 40 mEq oral BID Florinda Haile NP 40 mEq at 07/24/23 0844 pramipexole (MIRAPEX) tablet 0.5 mg 0.5 mg oral BID Florinda Haile NP 0.5 mg at 07/23/23 1731 propranoloL (INDERAL) tablet 20 mg 20 mg oral BID PRN Florinda Haile NP ramelteon (ROZEREM) tablet 8 mg 8 mg oral Nightly PRN Marta Ayala NP 8 mg at 07/23/23 2131 rivaroxaban (XARELTO) tablet 15 mg 15 mg oral Daily Rahat Harris MD 15 mg at 07/24/23 0844 spironolactone (ALDACTONE) tablet 25 mg 25 mg oral Daily Rahat Harris MD 25 mg at 07/24/23 0844 Labs: Recent Labs Lab Units 07/23/23 0523 07/22/23 1047 SODIUM mmol/L 139 139 POTASSIUM PLASMA mmol/L 3.5 4.5 CHLORIDE mmol/L 98 99 CO2 mmol/L 30 28 BUN SERUM mg/dL 36* 33* CREATININE mg/dL 1.46* 1.37* [id number] mL/min/1.73 m2 35 38 GLUCOSE mg/dL 93 120 CALCIUM mg/dL 9.2 9.2 ALBUMIN g/dL -- 3.7 Recent Labs Lab Units 07/22/23 1047 ALK PHOS Units/L 156* BILIRUBIN TOTAL mg/dL 0.4 TOTAL PROTEIN g/dL 6.9 ALT Units/L 17 AST Units/L 18 Recent Labs Lab Units 07/24/23 1154 07/23/23 0523 07/22/23 1047 WBC K/cumm 7.8 6.5 8.9 HEMOGLOBIN g/dL 8.2* 7.6* 8.2* HEMATOCRIT % 28.5* 26.6* 29.2* PLATELETS K/cumm 393 334 378 Lab Results Component Value Date TSH 3.48 07/18/2023 FREET4 1.30 07/18/2023 Lab Results Component Value Date CHOL 128 07/22/2023 TRIG 96 07/22/2023 HDL 45 07/22/2023 LDLCALC 64 07/22/2023 No results found for: TROPONINT Telemetry: Cardiac Rhythm: Atrial fibrillation (07/24/232055) Cardiology Testing: Echocardiogram 04/2021 Normal left ventricular systolic [...] >50%). Ankle-brachial index in June 2022 1. Rnbh-qf-wuwodbry arterial insufficiency at rest in the right [...] waveform at the ankle. JONATHAN 10/24/2022 1. Fsaz-xk-nfeplhse arterial insufficiency at rest in the right lower extremity with ankle-brachial index 0.69. This is essentially unchanged from prior value of 0.71 in June 2022. Biphasic waveform at the ankle. 2. Mild arterial insufficiency at rest in the left lower extremity with ankle-brachial index 0.77. This represents slight decline compared to prior value of 0.87 in June 2022. Biphasic waveform at the ankle. Impression and Plan: Decompensated HFpEF. The patients H2FpEF score is 8., HFA-PEFF score is 7. Guideline directed therapy for HFpEF with LVEF >60 is SGLT2i + loop diuretic + mineralocarticoid antagnast ([facility] Vol 81, No 182022.). Therefore I recommend treating the patient with empagliflozin, switch to p.o. diuretics. Okay for discharge. Needs to work on weight loss and increased activity. She is unable to be on entresto or alberto/arb due to allergy Iron deficiency anemia. Needs to continue with outpatient iron infusions Atrial Fibrillation Chronic. Continue beta blockers for rate control and Xarelto.Reduced Xarelto to15 mg daily because eGFR < 51. CKD-3 Hypokalemia- k 3.5. supplement. Check mag Dani on ckd. Cr 1.46. monitor closely CC: Pepper Morgan MD Rudomiotov, Olga, MD RONMENTAL HEALTH SAFETY ENGINEER * Elizabeth Villarreal MD - 07/25/2023 8:38 AM CST Daily Progress Note CHIEF COMPLAINT: Shortness of breath. SUBJECTIVE: Interval History: Sitting in bed, appears in no acute distress. Denies nausea. Says that still has some dyspnea however says that it is at baseline. No other complaints at the present time. OBJECTIVE: Vitals: 24hr Min/Max: Temp Min: 36.4 ??C (97.6 ??F) Max: 36.8 ??C (98.2 ??F) Pulse Min: 45 Max: 88 BP Min: 97/43 Max: 128/68 Resp Min: 16 Max: 28 SpO2 Min: 93 % Max: 99 % Most Recent : Vitals: 07/24/23 1716 07/24/23205507/25/23 0019 07/25/23 0456 BP: 128/68 97/67 (!) 97/43 110/57 BP Location: Right arm Right arm Right arm Right arm Patient Position: Sitting Lying Lying Lying Pulse: 84 72 67 (!) 45 Resp: 20 18 18 16 Temp: 36.4 ??C (97.6 ??F) 36.6 ??C (97.9 ??F) 36.5 ??C (97.7 ??F) 36.6 ??C (97.9 ??F) TempSrc: Oral Oral Oral Oral SpO2: 95% 93% 96% 93% Weight: Height: I/O last 2 completed shifts: In: - Out: 2600 [Urine:2600] No intake/output data recorded. Current Facility-Administered Medications Medication Dose Route Frequency Provider Last Rate Last Admin acetaminophen (TYLENOL) tablet 650 mg 650 mg oral Q6H PRN Florinda Haile NP 650 mg at 07/24/232112 al & mag hydroxide fzwvzykttak-xwvcaocgiokcizv-nenxeztqp-nystatin (MAGIC MOUTHWASH) oral suspension 1-1-1-1 15 mL 15 mL swish & spit Q4H PRN Elizabeth Villarreal MD 15 mL at 07/24/23 1508 albuterol HFA (PROVENTIL HFA,VENTOLIN HFA,PROAIR HFA) 90 mcg/actuation inhaler 2 puff 2 puff inhalation Q6H PRN (RT) Mich Sheppard MD carvediloL (COREG) tablet 6.25 mg 6.25 mg oral BID with meals (bkfst, dinner) Mich Sheppard MD 6.25 mg at 07/24/23 1721 cetirizine (ZyrTEC) tablet 10 mg 10 mg oral Nightly Florinda Haile NP 10 mg at 07/24/23 211 cholecalciferol (VITAMIN D-3) tablet 2,000 Units 2,000 Units oral Daily Florinda Haile NP 2,000Units at 07/24/23 0844 empagliflozin (JARDIANCE) tablet 10 mg 10 mg oral Daily Florinda Haile NP 10 mg at 07/24/23 08 fluticasone furoate-vilanteroL (BREO ELLIPTA) 100-25 mcg/dose inhaler 1 puff 1 puff inhalation Daily (RT) Florinda Haile NP 1 puff at 07/24/231957 furosemide (LASIX) 10 mg/mL injection 40 mg 40 mg intravenous BID DIURETIC Carlos Lakhani NP 40mg at 07/24/23 163 metOLazone (ZAROXOLYN) tablet 5 mg 5 mg oral Daily Mich Sheppard MD 5 mg at 07/24/23 0844 ondansetron (ZOFRAN) injection 4 mg 4 mg intravenous Q6H PRN Florinda Haile NP 4 mg at [address] (PROTONIX) extended release tablet 40 mg 40 mg oral Daily Mich Sheppard MD 40 mg at 07/24/23 0844 polyethylene glycol (MIRALAX) packet 17 g 17 g oral Daily PRN Florinda Haile NP 17 g at 07/24/23 0858 potassium chloride ER (KLOR-CON) extended release tablet 40 mEq 40 mEq oral BID Florinda Haile NP 40 mEq at 07/24/23 163 pramipexole (MIRAPEX) tablet 0.5 mg 0.5 mg oral BID Florinda Haile NP 0.5 mg at 07/24/232112 propranoloL (INDERAL) tablet 20 mg 20 mg oral BID PRN Florinda Haile NP 20 mg at 07/24/231720 ramelteon (ROZEREM) tablet 8 mg 8 mg oral Nightly PRN Marta Ayala, NOEL 8 mg at 07/24/232112 rivaroxaban (XARELTO) tablet 15 mg 15 mg oral Daily Rahat Harris MD 15 mg at 07/24/23843 spironolactone (ALDACTONE) tablet 25 mg 25 mg oral Daily Rahat Harris MD 25 mg at 07/24/23843 Physical Exam: General Appearance: Alert, cooperative, no [...] breath on admission, congestive heart failure exacerbation related. Diastolic dysfunction, per 06/15/2023 2D echo, with exacerbation. On IV Lasix, Zaroxolyn; on 07/23/2023 started on Aldactone. Cardiology service consulted. Nausea. On Zofran as needed. Asthma, not in exacerbation. On Breo, albuterol MDI as needed. Trivial mitral regurgitation, mild aortic stenosis, per 06/15/2023 2D echo. Hypertension. Blood pressure controlled. On Coreg, IV Lasix, Zaroxolyn; 07/23/2023 started on Aldactone. Atrial fibrillation, rate controlled. On Xarelto. GERD. On Protonix. PVD. AIF on 02/18/2022 [...] the use of re-entry device. Restless leg syndrome. On Mirapex. Essential tremor. On propranolol as needed. Obesity. CKD with creatinine of 1.46 with GFR of 35 several days ago, follow. Troponin trend of 43, 20, 21, 26, with delta of -23, -22, CKD related. Anemia with hemoglobin of 8.2 yesterday, follow. Microcytosis. On 07/18/2023 iron panel showed low iron, low transferrin saturation. Prophylaxis. Protonix, Xarelto. Disposition. Discharge home when okay with Cardiology. RONMENTAL HEALTH SAFETY ENGINEER * Navneet Olsen, PT - 07/24/2023 2:46 PM CST Physical Therapy INITIAL EVALUATION PATIENT'S NAME:Tess Benedict :1935 AGE:87 y.o. ROOM:[place] [address] TIME IN:1446 TIME OUT:1510 CURRENT DIAGNOSIS AND HOSPITAL COURSE:Patient presented with SOB and weight gain, SOB with minimal exertion and wheezing Notable HX: a-fib, diastolic CHF, DVT, HTN, RLS, essential tremors, asthma, basal cell carcinoma, CKD, GERD, PVD, JENNIFFER TKA, JENNIFFER ASHLEE, AIF with PVD, chronic a-fib Patient Active Problem List Diagnosis Essential tremor Chronic GERD 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 Restless legs syndrome Bariatric surgery status Knee joint replacement status, bilateral History of malignant melanoma Iron deficiency anemia, unspecified Shortness of breath Atrial fibrillation (CMS/HCC) (HCC) Spinal stenosis of lumbar region with neurogenic claudication Peripheral arterial disease (HCC) intermediate card tender current use of anticoagulant Postural kyphosis of cervicothoracic region Chronic heart failure with preserved ejection fraction (CMS/HCC) (HCC) Gait disturbance Hospital discharge follow-up Morbid (severe) obesity due to excess calories (HCC) Mild persistent 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 Mckenzie, [facility]. SUBJECTIVE LIVES WITH: alone LIVING ENVIRONMENT: condo with 2 steps to enter with JENNIFFER hand rail PRIOR LEVEL OF FUNCTION: Amb indep with wh walker. Drives self, indep with bathing and dressing. Indep with cooking, cleaning and laundry. 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 VITAL SIGNS: Resting heart rate: 81 BPM Post-activity heart rate: 90 BPM Resting O2 sat: 96% Post-activity O2 sat: 97% PAIN: Pre-therapy pain level: 0/10 Pain location: - Pain intervention: - Post-therapy pain level/response to intervention: 0/10 LE ASSESSMENTS: Right LE ROM: WFL Left LE ROM: WFL Right LE strength: 4-/5 Left LE strength: 4-/5 MOBILITY: Bed mobility: supine to sit SBA Transfers: sit to/from stand CG assist Ambulation: Distance: 60' Assistive device: rolling walker Level of assist: contact guard Deviations: uneven david, decreased heel strike/push off JENNIFFER Balance/Special Tests: Static sitting balance: good Dynamic sitting balance: good Static standing balance: good- Dynamic standing balance: good- AMPAC: Basic Mobility - 6 Click How much difficulty does the patient have: Turning over in bed: None How much difficulty does the patient currently have: Sitting down and standing up from a chair witharms?: None How much difficulty does the patient have: Moving from lying on back to sitting on the side of the bed?: None How much difficulty does the patient have: Moving to and from a bed to a chair including wheelchair?: None How much help does the patient currently need: Walk in hospital room?: A little How much help from another person does the patient currently need: Climbing 3-5 steps with a railing?: A little Total 6 Click Score (range 6-24): 22 Score Interpretation: 22 6 click interpretation: AM-PAC 6 Click scores > 18 = Likely home discharge AM-PAC 6 Click scores < 18 = Likely require inpatient rehab or intermediate placement at discharge APPEARANCE/POSTURE (end of session): Patient sitting upright on EOB with call light within reach. Family at bedside. EDUCATION: endurance training and role of PT evaluation RESPONSE TO EDUCATION: needs reinforcement ASSESSMENT PROBLEM LIST: decreased LE strength and decreased endurance BARRIERS TO LEARNING: Physical BARRIERS TO DISCHARGE: Decreased endurance and Lower extremity weakness REHAB POTENTIAL/PROGNOSIS: good PLAN PT Discharge Recommendations this date: PT Recommendation/Plan: Home with intermittent assist Treatment Plan/Interventions: acute PT to address deficit areas PT Frequency during current admission: 3-5x/wk Equipment Recommendations: none Multi-Disciplinary Problems (from Physical Therapy) Active Problems Problem: PT Misc Start Date: 07/24/23 Goal Start Date Expected End Date End Date PT [facility] [place] 07/24/23 07/31/23 -- Goal Details: Patient will transfer sit to/from stand with modified indep. Goal Start Date Expected End Date End Date PT [facility] 2 07/24/23 07/31/23 -- Goal Details: Patient will transfer sit to/from stand with modified indep. Goal Start Date Expected End Date End Date PT [facility] 3 07/24/23 07/31/23 -- Goal Details: Patient will amb 120' with wh walker and modified indep. Goal Start Date Expected End Date End Date PT [facility] 4 07/24/23 07/31/23 -- Goal Details: Patient will negotiate 2 steps with appropriate method and cg assist. Goal Start Date Expected End Date End Date PT [facility] 5 07/24/23 07/31/23 -- Goal Details: Patient will perform JENNIFFER LE ROM ex with SBA. If this is the last note, please consider this the discharge summary. RONMENTAL HEALTH SAFETY ENGINEER * Carlos Lakhani NP - 07/24/2023 10:32 AM CST Cardiology Progress Note 07/24/23 Symptoms: Pt seen lying in bed Ongoing sob Long d/w pt and daughter. All questions answered Tele: NSR 80s Vital Signs: Patient Vital Signs for the past 24 hrs: BP MAP (mmHg) Temp Temp src Pulse Resp SpO2 Weight 07/24/23 0744 116/62 76 36.8 ??C (98.2 ??F) Oral 88 28 99 % -- 07/24/23 0520 -- -- -- -- -- -- -- 87.7 kg (193 lb 5.5 oz) 07/24/23 0342 102/57 77 36.2 ??C (97.1 ??F) Oral 78 20 100 % -- 07/24/23 0000 116/68 84 36.4 ??C (97.5 ??F) Oral 83 20 100 % -- 07/23/23 2000 106/53 76 36.4 ??C (97.5 ??F) Oral 76 20 94 % -- 07/23/23 1553 119/99 103 36.5 ??C (97.7 ??F) Oral 76 20 100 % -- 07/23/23 1208 -- -- -- -- -- -- -- 87.4 kg (192 lb 10.9 oz) 07/23/23 1117 95/75 80 36.2 ??C (97.1 ??F) Oral 81 20 100 % -- Intake/Output Summary (Last 24 hours) at 07/24/2023 1032 Last data filed at 07/24/2023 0745 Gross per 24 hour Intake 900 ml Output 1700 ml Net -800 ml Wt Readings from Last 3 Encounters: 07/24/23 87.7 kg (193 lb 5.5 oz) 07/19/23 88 kg (194 lb) 07/13/23 88.5 kg (195 lb) Physical Exam: Lungs: Decreased breath sounds bilaterally with exp wheezes Cardiac: PMI and JVP normal, S1 and S2 normal, no murmur, no gallop or rub Abd: Soft, nontender, BS active, no hepatosplenomegaly or masses, no abdominal bruit or enlarged aortic pulsation Extremities: No clubbing, cyanosis. No edema. Femoral pulses 2+. Pedal pulses 2+ Current Medications: Current Facility-Administered Medications Medication Dose Route Frequency Provider Last Rate Last Admin acetaminophen (TYLENOL) tablet 650 mg 650 mg oral Q6H PRN Florinda Haile NP 650 mg at 07/24/23 0858 al & mag hydroxide xyuyvptawyd-qajdpailvbxctfe-thwvmelhe-nystatin (MAGIC MOUTHWASH) oral suspension 1-1-1-1 15 mL 15 mL swish & spit Q4H PRN Elizabeth Villarreal MD albuterol HFA (PROVENTIL HFA,VENTOLIN HFA,PROAIR HFA) 90 mcg/actuation inhaler 2 puff 2 puff inhalation Q6H PRN (RT) Mich Sheppard MD carvediloL (COREG) tablet 6.25 mg 6.25 mg oral BID with meals (bkfst, dinner) Mich Sheppard MD 6.25 mg at 07/24/23 0844 cetirizine (ZyrTEC) tablet 10 mg 10 mg oral Nightly Florinda Haile NP 10 mg at 07/23/23 2131 cholecalciferol (VITAMIN D-3) tablet 2,000 Units 2,000 Units oral Daily Florinda Haile NP 2,000Units at 07/24/23 0844 dexAMETHasone (DECADRON) injection solution 20 mg 20 mg intravenous Once PRN Rahat Harris MD diphenhydrAMINE (BENADRYL) 50 mg/mL injection 50 mg 50 mg intravenous Once PRN Rahat Harris MD empagliflozin (JARDIANCE) tablet 10 mg 10 mg oral Daily Florinda Haile NP 10 mg at 07/24/23 0844 EPINEPHrine 1 mg/mL preservative free injection 0.3 mg 0.3 mg intramuscular Once PRN Rahat Harris MD fluticasone furoate-vilanteroL (BREO ELLIPTA) 100-25 mcg/dose inhaler 1 puff 1 puff inhalation Daily (RT) Florinda Haile NP 1 puff at 07/23/23 104 furosemide (LASIX) 10 mg/mL injection 40 mg 40 mg intravenous Q12H GLORIA Mich Sheppard MD 40 mg at 07/24/23 0844 methylPREDNISolone sodium succinate (SOLU-medrol) preservative free injection 125 mg 125 mg intravenous Once PRN Rahat Harris MD metOLazone (ZAROXOLYN) tablet 5 mg 5 mg oral Daily Mich Sheppard MD 5 mg at 07/24/23 0844 ondansetron (ZOFRAN) injection 4 mg 4 mg intravenous Q6H PRN Florinda Haile NP 4 mg at [address] (PROTONIX) extended release tablet 40 mg 40 mg oral Daily Mich Sheppard MD 40 mg at 07/24/23 0844 polyethylene glycol (MIRALAX) packet 17 g 17 g oral Daily PRN Florinda Haile NP 17 g at 07/24/23 0858 potassium chloride ER (KLOR-CON) extended release tablet 40 mEq 40 mEq oral BID Florinda Haile NP 40 mEq at 07/24/23 0844 pramipexole (MIRAPEX) tablet 0.5 mg 0.5 mg oral BID Florinda Haile NP 0.5 mg at 07/23/23 1731 propranoloL (INDERAL) tablet 20 mg 20 mg oral BID PRN Florinda Haile NP ramelteon (ROZEREM) tablet 8 mg 8 mg oral Nightly PRN Marta Ayala NP 8 mg at 07/23/23 2131 rivaroxaban (XARELTO) tablet 15 mg 15 mg oral Daily Rahat Harris MD 15 mg at 07/24/23 0844 spironolactone (ALDACTONE) tablet 25 mg 25 mg oral Daily Rahat Harris MD 25 mg at 07/24/23 0844 Labs: Recent Labs Lab Units 07/23/23 0523 07/22/23 1047 07/18/23 1012 SODIUM mmol/L 139 139 136 POTASSIUM PLASMA mmol/L 3.5 4.5 3.5 CHLORIDE mmol/L 98 99 98 CO2 mmol/L 30 28 29 BUN SERUM mg/dL 36* 33* 30* CREATININE mg/dL 1.46* 1.37* 1.29* AMB-EZW-CIUNIQS mL/min/1.73 m2 35 38 41 GLUCOSE mg/dL 93 120 106 CALCIUM mg/dL 9.2 9.2 9.3 ALBUMIN g/dL -- 3.7 -- Recent Labs Lab Units 07/22/23 1047 ALK PHOS Units/L 156* BILIRUBIN TOTAL mg/dL 0.4 TOTAL PROTEIN g/dL 6.9 ALT Units/L 17 AST Units/L 18 Recent Labs Lab Units 07/23/23 0507/22/23 1047 07/18/23 1012 WBC K/cumm 6.5 8.9 7.8 HEMOGLOBIN g/dL 7.6* 8.2* 8.3* HEMATOCRIT % 26.6* 29.2* 28.4* PLATELETS K/cumm 334 378 317 Lab Results Component Value Date TSH 3.48 07/18/2023 FREET4 1.30 07/18/2023 Lab Results Component Value Date CHOL 128 07/22/2023 TRIG 96 07/22/2023 HDL 45 07/22/2023 LDLCALC 64 07/22/2023 No results found for: TROPONINT Telemetry: Cardiac Rhythm: Atrial fibrillation (07/23/23 2130) Cardiology Testing: Echocardiogram 04/2021 Normal left ventricular systolic [...] >50%). Ankle-brachial index in June 2022 1. Calm-qm-ncqzlhpl arterial insufficiency at rest in the right [...] waveform at the ankle. JONATHAN 10/24/2022 1. Zren-en-wgwxzpir arterial insufficiency at rest in the right lower extremity with ankle-brachial index 0.69. This is essentially unchanged from prior value of 0.71 in June 2022. Biphasic waveform at the ankle. 2. Mild arterial insufficiency at rest in the left lower extremity with ankle-brachial index 0.77. This represents slight decline compared to prior value of 0.87 in June 2022. Biphasic waveform at the ankle. Impression and Plan: Decompensated HFpEF. The patients H2FpEF score is 8., HFA-PEFF score is 7. Guideline directed therapy for HFpEF with LVEF >60 is SGLT2i + loop diuretic + mineralocarticoid antagnast (JACC Vol 81, No 18, 2022.). Therefore I recommend treating the patient with empagliflozin, Furosemide and spironolactone.Monitor I/O , daily weights and renal function. intermediate card tender she needs nonpharmacological interventions to include weight loss and exercise. She is unable to be on entresto or alberto/arb due to allergy Iron deficiency anemia. She is scheduled for iron infusion as outpatient next week. s/p iron infusion for this admission as her Hgb is down to 7.6 gm and this may be contributing to her dyspnea on 07/23. Recommend rechecking PAD- stable Atrial Fibrillation Chronic. Continue beta blockers for rate control and Xarelto.Reduced Xarelto to15 mg daily because eGFR < 51. CKD-3 Hypokalemia- k 3.5. supplement. Check mag Dani on ckd. Cr 1.46. monitor closely CC: Pepper Morgan MD Rudomiotov, Olga, MD RONMENTAL HEALTH SAFETY ENGINEER * Elizabeth Villarreal MD - 07/24/2023 10:14 AM CST Daily Progress Note CHIEF COMPLAINT: Shortness of breath. SUBJECTIVE: Interval History: Laying in bed, appears in no acute distress. Says that does not feel well. Reports nausea. Denies vomiting. Reports some soreness over the top of her tongue. Also reports still having some dyspnea. No other complaints. OBJECTIVE: Vitals: 24hr Min/Max: Temp Min: 36.2 ??C (97.1 ??F) Max: 36.8 ??C (98.2 ??F) Pulse Min: 76 Max: 88 BP Min: 95/75 Max: 119/99 Resp Min: 20 Max: 28 SpO2 Min: 94 % Max: 100 % Most Recent : Vitals: 07/24/23 0000 07/24/23 0342 07/24/23 0520 07/24/23 0744 BP: 116/68 102/57 116/62 BP Location: Right arm Right arm Right arm Patient Position: Sitting Pulse: 83 78 88 Resp: 20 20 28 Temp: 36.4 ??C (97.5 ??F) 36.2 ??C (97.1 ??F) 36.8 ??C (98.2 ??F) TempSrc: Oral Oral Oral SpO2: 100% 100% 99% Weight: 87.7 kg (193 lb 5.5 oz) Height: I/O last 2 completed shifts: In: 1400 [P.O.:1100; IV Piggyback:300] Out: 1200 [Urine:1200] I/O this shift: In: - Out: 500 [Urine:500] Current Facility-Administered Medications Medication Dose Route Frequency Provider Last Rate Last Admin acetaminophen (TYLENOL) tablet 650 mg 650 mg oral Q6H PRN Florinda Haile NP 650 mg at 07/24/23 0858 albuterol HFA (PROVENTIL HFA,VENTOLIN HFA,PROAIR HFA) 90 mcg/actuation inhaler 2 puff 2 puff inhalation Q6H PRN (RT) Mich Sheppard MD carvediloL (COREG) tablet 6.25 mg 6.25 mg oral BID with meals (bkfst, dinner) Mich Sheppard MD 6.25 mg at 07/24/23 0844 cetirizine (ZyrTEC) tablet 10 mg 10 mg oral Nightly Florinda Haile NP 10 mg at 07/23/23 2131 cholecalciferol (VITAMIN D-3) tablet 2,000 Units 2,000 Units oral Daily Florinda Haile NP 2,000Units at 07/24/23 0844 dexAMETHasone (DECADRON) injection solution 20 mg 20 mg intravenous Once PRN Rahat Harris MD diphenhydrAMINE (BENADRYL) 50 mg/mL injection 50 mg 50 mg intravenous Once PRN Rahat Harris MD empagliflozin (JARDIANCE) tablet 10 mg 10 mg oral Daily Flornida Haile NP 10 mg at 07/24/23 0844 EPINEPHrine 1 mg/mL preservative free injection 0.3 mg 0.3 mg intramuscular Once PRN Rahat Harris MD fluticasone furoate-vilanteroL (BREO ELLIPTA) 100-25 mcg/dose inhaler 1 puff 1 puff inhalation Daily (RT) Florinda Haile NP 1 puff at 07/23/23 1042 furosemide (LASIX) 10 mg/mL injection 40 mg 40 mg intravenous Q12H GLORIA Mich Sheppard MD 40 mg at 07/24/23 0844 methylPREDNISolone sodium succinate (SOLU-medrol) preservative free injection 125 mg 125 mg intravenous Once PRN Rahat Harris MD metOLazone (ZAROXOLYN) tablet 5 mg 5 mg oral Daily Mich Sheppard MD 5 mg at 07/24/23 0844 ondansetron (ZOFRAN) injection 4 mg 4 mg intravenous Q6H PRN Florinda Haile NP pantoprazole DR (PROTONIX) extended release tablet 40 mg 40 mg oral Daily Mich Sheppard MD 40 mg at 07/24/23 0844 polyethylene glycol (MIRALAX) packet 17 g 17 g oral Daily PRN Florinda Haile NP 17 g at 07/24/23 0858 potassium chloride ER (KLOR-CON) extended release tablet 40 mEq 40 mEq oral BID Florinda Haile NP 40 mEq at 07/24/23 0844 pramipexole (MIRAPEX) tablet 0.5 mg 0.5 mg oral BID Florinda Haile NP 0.5 mg at 07/23/23 1731 propranoloL (INDERAL) tablet 20 mg 20 mg oral BID PRN Florinda Haile NP ramelteon (ROZEREM) tablet 8 mg 8 mg oral Nightly PRN Marta Ayala NP 8 mg at 07/23/23 2131 rivaroxaban (XARELTO) tablet 15 mg 15 mg oral Daily Rahat Harris MD 15 mg at 07/24/23 0844 spironolactone (ALDACTONE) tablet 25 mg 25 mg oral Daily Rahat Harris MD 25 mg at 07/24/23 0844 Physical Exam: General Appearance: Alert, cooperative, no [...] breath on admission, congestive heart failure exacerbation related. Diastolic dysfunction, per 06/15/2023 2D echo, with exacerbation. On IV Lasix, Zaroxolyn; yesterdaystarted on Aldactone. Cardiology service consulted. Nausea. On Zofran as needed. Asthma, not in exacerbation. On Breo, albuterol MDI as needed. Trivial mitral regurgitation, mild aortic stenosis, per 06/15/2023 2D echo. Hypertension. Blood pressure controlled. On Coreg, IV Lasix, Zaroxolyn; yesterday started on Aldactone. Atrial fibrillation, rate controlled. On Xarelto. GERD. On Protonix. PVD. AIF on 02/18/2022 [...] the use of re-entry device. Restless leg syndrome. On Mirapex. Essential tremor. On propranolol as needed. Obesity. CKD with creatinine of 1.46 with GFR of 35 yesterday, follow. Troponin trend of 43, 20, 21, 26, with delta of -23, -22, CKD related. Anemia with hemoglobin of 7.6 yesterday, follow. Microcytosis. On 07/18/2023 iron panel showed low iron, low transferrin saturation. Prophylaxis. Protonix, Xarelto. RONMENTAL HEALTH SAFETY ENGINEER RONMENTAL HEALTH SAFETY ENGINEER * Elizabeth Villarreal MD - 07/23/2023 9:20 AM CST Daily Progress Note CHIEF COMPLAINT: Shortness of breath. SUBJECTIVE: Interval History: Sitting in bed, appears in no acute distress. Says that shortness of breath has improved however is still persistent. No other complaints at the present time. OBJECTIVE: Vitals: 24hr Min/Max: Temp Min: 36.2 ??C (97.2 ??F) Max: 37.1 ??C (98.7 ??F) Pulse Min: 66 Max: 89 BP Min: 101/54 Max: 127/64 Resp Min: 14 Max: 26 SpO2 Min: 91 % Max: 100 % Most Recent : Vitals: 07/22/23203107/22/23232907/23/2331307/23/23726 BP: 109/64 102/56 101/54 102/68 BP Location: Right arm Right arm Right arm Right arm Patient Position: Lying Lying Lying Sitting Pulse: 89 76 75 66 Resp: 18 18 18 20 Temp: 36.2 ??C (97.2 ??F) 36.2 ??C (97.2 ??F) 36.3 ??C (97.4 ??F) 36.4 ??C (97.5 ??F) TempSrc: Oral Oral Oral Oral SpO2: 96% 95% 96% 99% Weight: Height: I/O last 2 completed shifts: In: 240 [P.O.:240] Out: 2340 [Urine:2340] No intake/output data recorded. Current Facility-Administered Medications Medication Dose Route Frequency Provider Last Rate Last Admin acetaminophen (TYLENOL) tablet 650 mg 650 mg oral Q6H PRN Florinda Haile NP 650 mg at 07/22/232123 albuterol HFA (PROVENTIL HFA,VENTOLIN HFA,PROAIR HFA) 90 mcg/actuation inhaler 2 puff 2 puff inhalation Q6H PRN (RT) Mich Sheppard MD carvediloL (COREG) tablet 6.25 mg 6.25 mg oral BID with meals (bkfst, dinner) Mich Sheppard MD 6.25 mg at 07/23/23 0830 cetirizine (ZyrTEC) tablet 10 mg 10 mg oral Nightly Florinda Haile NP 10 mg at 07/22/232123 cholecalciferol (VITAMIN D-3) tablet 2,000 Units 2,000 Units oral Daily Florinda Haile NP 2,000Units at 07/23/23829 empagliflozin (JARDIANCE) tablet 10 mg 10 mg oral Daily Florinda Haile NP 10 mg at 07/23/23829 fluticasone furoate-vilanteroL (BREO ELLIPTA) 100-25 mcg/dose inhaler 1 puff 1 puff inhalation Daily (RT) Florinda Haile NP furosemide (LASIX) 10 mg/mL injection 40 mg 40 mg intravenous Q12H GLORIA Mich Sheppard MD 40 mg at 07/22/232123 metOLazone (ZAROXOLYN) tablet 5 mg 5 mg oral Daily Mich Sheppard MD 5 mg at 07/23/23829 ondansetron (ZOFRAN) injection 4 mg 4 mg intravenous Q6H PRN Florinda Haile NP pantoprazole DR (PROTONIX) extended release tablet 40 mg 40 mg oral Daily Mich Sheppard MD 40 mg at 07/23/23829 polyethylene glycol (MIRALAX) packet 17 g 17 g oral Daily PRN Florinda Haile NP potassium chloride ER (KLOR-CON) extended release tablet 40 mEq 40 mEq oral BID Florinda Haile NP 40 mEq at 07/23/23829 pramipexole (MIRAPEX) tablet 0.5 mg 0.5 mg oral BID Florinda Haile NP 0.5 mg at 07/22/232123 propranoloL (INDERAL) tablet 20 mg 20 mg oral BID PRN Florinda Haile NP rivaroxaban (XARELTO) tablet 20 mg 20 mg oral Daily Mich Sheppard MD 20 mg at 07/23/23829 Physical Exam: General Appearance: Alert, cooperative, no [...] breath on admission, congestive heart failure exacerbation related. Diastolic dysfunction, per 06/15/2023 2D echo, with exacerbation. On IV Lasix, Zaroxolyn. Cardiology service consulted. Asthma, not in exacerbation. On Breo, albuterol MDI as needed. Trivial mitral regurgitation, mild aortic stenosis, per 06/15/2023 2D echo. Hypertension. Blood pressure controlled. On Coreg, IV Lasix, Zaroxolyn. Atrial fibrillation, rate controlled. On Xarelto. GERD. On Protonix. PVD. AIF on 02/18/2022 [...] the use of re-entry device. Restless leg syndrome. On Mirapex. Essential tremor. On propranolol as needed. Obesity. CKD with creatinine of 1.46 with GFR of 35, follow. Troponin trend of 43, 20, 21, 26, with delta of -23, -22, CKD related. Anemia with hemoglobin of 7.6, follow. Microcytosis. On 07/18/2023 iron panel showed low iron, low transferrin saturation. Prophylaxis. Protonix, Xarelto. RONMENTAL HEALTH SAFETY ENGINEER * Efren Ramos Sukhi, [facility] - 07/22/2023 3:45 PM CST Pharmacy Medication Reconciliation Note Patient Tess Benedict is a 87 y.o. female who presents to [facility] ED[facility] for admission. The prior to admission home medication list was reviewed by pharmacy. Current Facility-Administered Medications: acetaminophen (TYLENOL) tablet 650 mg, 650 mg, oral, Q6H PRN, Florinda Haile NP albuterol HFA (PROVENTIL HFA,VENTOLIN HFA,PROAIR HFA) 90 mcg/actuation inhaler 2 puff, 2 puff, inhalation, Q6H PRN (RT), Mich Sheppard MD carvediloL (COREG) tablet 6.25 mg, 6.25 mg, oral, BID with meals (bkfst, dinner), Mich Sheppard MD cetirizine (ZyrTEC) tablet 10 mg, 10 mg, oral, Nightly, Florinda Haile NP cholecalciferol (VITAMIN D-3) tablet 2,000 Units, 2,000 Units, oral, Daily, Florinda Haile NP empagliflozin (JARDIANCE) tablet 10 mg, 10 mg, oral, Daily, Florinda Haile NP fluticasone furoate-vilanteroL (BREO ELLIPTA) 100-25 mcg/dose inhaler 1 puff, 1 puff, inhalation, Daily (RT), Florinda Haile NP furosemide (LASIX) 10 mg/mL injection 40 mg, 40 mg, intravenous, Q12H GLORIA, Mich Sheppard MD metOLazone (ZAROXOLYN) tablet 5 mg, 5 mg, oral, Daily, Mich Sheppard MD ondansetron (ZOFRAN) injection 4 mg, 4 mg, intravenous, Q6H PRN, Florinda Haile NP pantoprazole DR (PROTONIX) extended release tablet 40 mg, 40 mg, oral, Daily, Mich Sheppard MD polyethylene glycol (MIRALAX) packet 17 g, 17 g, oral, Daily PRN, Florinda Haile NP potassium chloride ER (KLOR-CON) extended release tablet 40 mEq, 40 mEq, oral, BID, Florinda Haile NP pramipexole (MIRAPEX) tablet 0.5 mg, 0.5 mg, oral, BID, Florinda Haile NP propranoloL (INDERAL) tablet 20 mg, 20 mg, oral, BID PRN, Florinda Haile NP rivaroxaban (XARELTO) tablet 20 mg, 20 mg, oral, Daily, Mich Sheppard MD spironolactone (ALDACTONE) tablet 25 mg, 25 mg, oral, Daily, Florinda Haile NP Current Outpatient Medications: albuterol HFA (Proventil HFA) 90 mcg/actuation inhaler, Inhale 2 puffs every 6 (six) hours as needed for wheezing or shortness of breath, Disp: 6.7 g, Rfl: 3 aspirin 81 mg enteric coated tablet, Take 1 tablet (81 mg total) by mouth daily, Disp: , Rfl: carvediloL (COREG) 6.25 mg tablet, Take 1 tablet (6.25 mg total) by mouth 2 (two) times a day with meals, Disp: 180 tablet, Rfl: 2 cetirizine (ZyrTEC) 10 mg tablet, Take 1 tablet (10 mg total) by mouth nightly, Disp: 90 tablet, Rfl: 3 cholecalciferol (VITAMIN D-3) 2000 unit tablet, Take 1 tablet (2,000 Units total) by mouth daily, Disp: , Rfl: empagliflozin (JARDIANCE) 10 mg tablet, Take 1 tablet (10 mg total) by mouth daily, Disp: 30 tablet, Rfl: 11 felodipine (PLENDIL) 5 mg 24 hr tablet, Take 1 tablet (5 mg total) by mouth daily, Disp: 90 tablet,Rfl: 2 fluticasone propion-salmeteroL (ADVAIR DISKUS) 100-50 mcg/dose diskus inhaler, Inhale 1 puff 2 (two) times a day Rinse mouth with water after use. Do not swallow., Disp: 1 each, Rfl: 4 furosemide (LASIX) 40 mg tablet, Take 1 tablet (40 mg total) by mouth 2 (two) times a day, Disp: 60tablet, Rfl: 11 metOLazone (ZAROXOLYN) 2.5 mg tablet, Take 2 tablets (5 mg total) by mouth daily, Disp: , Rfl: pantoprazole DR (PROTONIX) 40 mg EC tablet, [...] in the morning 40 meq in the evening), Disp: 120 tablet, Rfl: 11 pramipexole (MIRAPEX) 0.5 mg tablet, Take 1 tablet (0.5 mg total) by mouth 2 (two) times a day, Disp: 60 tablet, Rfl: 3 propranoloL (INDERAL) 20 mg tablet, Take 1 tablet (20 mg total) by mouth 2 (two) times a day as needed (Tremor), Disp: 180 tablet, Rfl: 2 rivaroxaban (XARELTO) 20 mg tablet, Take 1 tablet (20 mg total) by mouth daily (Patient taking differently: Take 1 tablet (20 mg total) by mouth daily with lunch), Disp: 30 tablet, Rfl: 11 The patient???s home medication list has been reconciled and updated as follows: - Orders from medication that were removed because the patient is no longer taking: spironolactone - Orders that the patient is taking at home were added to the home medication list: none - Orders on the medication list that the patient is taking differently (doses/frequency/formulation): KCL 40 meq bid to 80 meq in am and 40 meq in pm - Additional comments/recommendations: Per patient and daughter at bedside. Daughter is familiar with patient's medications and sets up her pill box. Reviewed [facility] med list from 06/26 [facility] encounter which she uses to track pt's medications. Of note, carvedilol and advair diskus were only checked in the morning box in the AVS med list. Daughter thought they were once daily so patient may have been taking these incorrectly For spironolactone, patient has not been taking. Readded to patient's list during recent OV becausepatient erroneously reported still taking. Daughter was not at this OV. This was stopped in May though and patient was mistaken. Daughter reports not putting in patient's pill box since it was stopped. Consider reducing xarelto dose d/t patient's renal function Sources of information for this medication reconciliation include: family member, medication list, patient, and prescription fill history Efren Ramos RPh 07/22/2023 3:41 PM RONMENTAL HEALTH SAFETY ENGINEER documented in this encounter H&P Notes * Florinda Haile NP - 07/22/2023 1:39 PM CST History and Physical CHIEF COMPLAINT Chief Complaint Patient presents with Shortness of Breath HPI Patient is a 87 y.o. female with past medical history of atrial fibrillation, diastolic CHF, DVT, hypertension, restless leg syndrome and essential tremors who presents to the emergency room with complaints of shortness of breath and weight gain over the past couple days. Patient states, I can't get rid of the fluid . She reports shortness of breath with minimum exertion and wheezing. She reports compliance with taking all of her medications. She denies chest pain, abdominal pain, fever, chills, diarrhea, cough, dysuria, hematuria or melena. Due to the above she presents to the emergency room for evaluation. On arrival to the emergency room T max 97.4, pulse 82, respirations 20, blood pressure 113/62 and O2 saturation 100%. Updraft treatment given. BNP 6674. CXR showing bilateral hilar enlargement. Patient received IV Lasix 40 mg. Troponin 43, 20. EKG showing atrial fibrillation. I agree with admittingthis patient to the hospital for further evaluation, management and care. PAST MEDICAL HISTORY Asthma Arthritis of ankle Allergic rhinitis Atrial fibrillation Back pain Basal cell carcinoma CKD stage 3 CHF, diastolic DVT, left [...] implantation of posterior chamber lens, MONICA model #[id number], +23.5 diopter, serial #[id number]. 03/21/2012, Phacoemulsification of left eye with implantation of posterior chamber lens, [employer] Model [id number], +24 diopter, serial number [id number]. 12/25/2013, Excision of pigmented lesion, left lower [...] Amlodipine Swelling Lisinopril Swelling Trazodone Swelling Tongue Cipro [Ciprofloxacin Hcl] Vomiting Cymbalta [Duloxetine] Fatigue [...] Start Date End Date Taking? Authorizing Provider albuterol HFA (Proventil HFA) 90 mcg/actuation inhaler Inhale 2 puffs every 6 (six) hours as neededfor wheezing or shortness of breath 06/13/23 Sabine Dasilva NP aspirin 81 mg enteric coated tablet Take 1 tablet (81 mg total) by mouth daily ProviderLatasha MD carvediloL (COREG) 6.25 mg tablet Take 1 tablet (6.25 mg total) by mouth 2 (two) times a day with meals 07/20/23 Stalin Arauz MD cetirizine (ZyrTEC) 10 mg tablet Take 1 tablet (10 mg total) by mouth nightly 12/08/22 Pepper Morgan MD cholecalciferol (VITAMIN D-3) 2000 unit tablet Take 1 tablet (2,000 Units total) by mouth daily ProviderLatasha MD empagliflozin (JARDIANCE) 10 mg tablet Take 1 tablet (10 mg total) by mouth daily 05/29/23 Stalin Arauz MD felodipine (PLENDIL) 5 mg 24 hr tablet Take 1 tablet (5 mg total) by mouth daily 07/13/23 Pepper Morgan MD fluticasone propion-salmeteroL (ADVAIR DISKUS) 100-50 mcg/dose diskus inhaler Inhale 1 puff 2 (two)times a day Rinse mouth with water after use. Do not swallow. 03/09/23 Sabine Dasilva NP furosemide (LASIX) 40 mg tablet Take 1 tablet (40 mg total) by mouth 2 (two) times a day 06/26/23 Elizabeth Villarreal MD metOLazone (ZAROXOLYN) 2.5 mg tablet Take 2 tablets (5 mg total) by mouth daily ProviderLatasha MD pantoprazole DR (PROTONIX) 40 mg EC tablet Take 1 tablet (40 mg total) by mouth daily 07/13/23 Pepper Morgan MD polyethylene glycol (MIRALAX) 17 gram packet Take 1 packet (17 g total) by mouth daily as needed for constipation ProviderLatasha MD potassium chloride ER 20 mEq CR tablet Take 2 tablets (40 mEq total) by mouth 2 (two) times a day 07/19/23 Stalin Arauz MD pramipexole (MIRAPEX) 0.5 mg tablet Take 1 tablet (0.5 mg total) by mouth 2 (two) times a day 05/25/23 05/24/24 Klaus Deshpande MD propranoloL (INDERAL) 20 mg tablet Take 1 tablet (20 mg total) by mouth 2 (two) times a day as needed (Tremor) 07/13/23 Pepper Morgan MD rivaroxaban (XARELTO) 20 mg tablet Take 1 tablet (20 mg total) by mouth daily Patient taking differently: Take 1 tablet (20 mg total) by mouth daily with lunch 12/08/22 Pepper Morgan MD spironolactone (ALDACTONE) 25 mg tablet Take 1 tablet (25 mg total) by mouth daily 07/19/23 07/18/24 Stalin Arauz MD cyclobenzaprine (FLEXERIL) 10 mg tablet Take 1 tablet (10 mg total) by mouth nightly as needed for muscle spasms 11/16/21 12/06/21 Puma Johnson MD I have utilized all available immediate resources to obtain, update, or review the patient's current medications (including all prescriptions, [id number] products, herbals, cannabis/cannabidiolproducts, and vitamin/mineral/dietary (nutritional) supplements). REVIEW OF SYSTEMS 14 point review of systems is negative except for what I have already mentioned above in the history of present illness. OBJECTIVE Temp Av.3 ??C (97.4 ??F) Min: 36.3 ??C (97.4 ??F) Max: 36.3 ??C (97.4 ??F) BP Min: 113/62 Max: 113/62 Pulse Av Min: 82 Max: 82 Resp Av Min: 20 Max: 20 SpO2 Av % Min: 100 % Max: 100 % No intake/output data recorded. Weight: Wt Readings from Last 1 Encounters: 07/22/23 88.9 kg (196 lb) PHYSICAL EXAM General: This is a 87 y.o. female in no acute distress. Head: Normocephalic, atraumatic. Eyes: PERRLA, EOMI bilaterally. No conjunctival injection. Nose: Nasal cavity is patent. Throat is clear. Mucus membranes are pink & moist without bleeding. Neck: Supple. No JVD. No lymphadenopathy. Trachea is in the midline position. Lungs: Clear breath sounds bilaterally. No wheezing auscultated. Heart: S1 and S2. No murmur auscultated. Abdomen: Round, soft, obese, nontender. Bowel sounds are present in all four quadrants. Extremities: No cyanosis, clubbing. 1+ left lower extremity edema. Neuro: Patient is awake and alert x 3. Speech is clear and coherent. Psychiatric: Normal mood and affect. Behavior is normal. Skin: Warm and dry. No rashes or lesions. LAB/RADIOLOGY/DIAGNOSTIC: Recent Labs Lab Units 07/22/23 1047 WBC K/cumm 8.9 HEMOGLOBIN g/dL 8.2* HEMATOCRIT % 29.2* PLATELETS K/cumm 378 Recent Labs Lab Units 07/22/23 1047 SODIUM mmol/L 139 POTASSIUM PLASMA mmol/L 4.5 CHLORIDE mmol/L 99 CO2 mmol/L 28 ANIONGAP mmol/L 12 GLUCOSE mg/dL 120 BUN SERUM mg/dL 33* CREATININE mg/dL 1.37* CALCIUM mg/dL 9.2 ALBUMIN g/dL 3.7 ALK PHOS Units/L 156* ALT Units/L 17 AST Units/L 18 BILIRUBIN TOTAL mg/dL 0.4 Recent Labs Lab Units 07/22/23 1047 07/18/23 1012 WBC K/cumm 8.9 7.8 HEMOGLOBIN g/dL 8.2* 8.3* HEMATOCRIT % 29.2* 28.4* PLATELETS K/cumm 378 317 Recent Labs Lab Units 07/18/23 1012 TSH mcIUnit/mL 3.48 ECG 12 lead Result Date: 06/25/2023 Narrative: Vent Rate: 71 bpm RR Interval: 843 msec UT Interval: 0 msec QRS Duration: 82 msec QT Interval: 406 msec QTC Interval: 428 msec P-R-T [place]: 0 - 74 - 22 degrees IMPRESSION: ATRIAL FIBRILLATION WITH CONTROLLED VENTRICULAR RESPONSE LOW QRS VOLTAGE IN PRECORDIAL LEADS Electronically Signed By: Collin Rich MD, MERGED WITH [facility] XR Chest 1 Vw Portable Result Date: 06/24/2023 Narrative: EXAMINATION: XR CHEST 1 VIEW DATE: 06/24/2023 11:55 AM INDICATION: Shortness of breath. COMPARISON: None. FINDINGS: No pneumothorax, pleural effusion, or pulmonary consolidation is demonstrated. The cardiomediastinal silhouette is within normal limits. No acute osseous abnormality demonstrated. Impression: No acute cardiopulmonary findings. Electronically signed by: Jason Darling II, D.O. Recent Results (from the past 24 hour(s)) Comprehensive metabolic panel Collection Time: 07/22/23 10:47 AM Result Value Ref Range Sodium 139 135 - 145 mmol/L Potassium, pl 4.5 3.3 - 4.9 mmol/L Chloride 99 97 - 110 mmol/L CO2 28 22 - 32 mmol/L Anion gap 12 2 - 15 mmol/L BUN 33 (H) 6 - 25 mg/dL Creatinine 1.37 (H) 0.60 - 1.10 mg/dL Glucose 120 70 - 199 mg/dL Calcium 9.2 8.5 - 10.3 mg/dL Bilirubin, total 0.4 0.1 - 1.2 mg/dL Protein, pl 6.9 6.5 - 8.5 g/dL Albumin 3.7 3.5 - 5.0 g/dL Alk phos 156 (H) 40 - 130 Units/L ALT 17 7 - 45 Units/L AST 18 10 - 45 Units/L CBC with auto differential Collection Time: 07/22/23 10:47 AM Result Value Ref Range WBC 8.9 3.8 - 9.9 K/cumm Hgb 8.2 (L) 11.9 - 15.5 g/dL Hct 29.2 (L) 35.6 - 45.5 % Plt 378 150 - 400 K/cumm MPV 9.4 9.1 - 12.3 fL RBC 3.91 3.90 - 5.20 M/cumm MCV 74.7 (L) 81.3 - 96.4 fL MCH 21.0 (L) 27.1 - 33.3 pg MCHC 28.1 (L) 32.3 - 35.7 g/dL RDW CV 17.3 (H) 11.1 - 14.9 % RDW SD 46.5 35.7 - 48.1 fL NRBC abs 0.00 0.00 - 0.01 K/cumm Troponin T high-sensitivity series (baseline, 2hr, 4hr, 6hr) Collection Time: 07/22/23 10:47 AM Result Value Ref Range Trop T hs 43 (H) <=14 ng/L aPTT Collection Time: 07/22/23 10:47 AM Result Value Ref Range aPTT 40 (H) 28 - 38 sec Pro B-type natriuretic peptide Collection Time: 07/22/23 10:47 AM Result Value Ref Range NT-proBNP 6,674 (H) <=450 pg/mL Differential, auto Collection Time: 07/22/23 10:47 AM Result Value Ref Range Neutrophil abs 7.0 (H) 1.5 - 6.5 K/cumm Imm gran abs 0.1 0.0 - 0.1 K/cumm Lymphocyte abs 0.8 0.8 - 3.3 K/cumm Monocyte abs 0.6 0.2 - 0.8 K/cumm Eosinophil abs 0.4 0.0 - 0.5 K/cumm Basophil abs 0.0 0.0 - 0.1 K/cumm Neutrophil pct 78.9 % Imm gran pct 1.0 % Lymphocyte pct 8.8 % Monocyte pct 6.6 % Eosinophil pct 4.2 % Basophil pct 0.5 % eGFR Collection Time: 07/22/23 10:47 AM Result Value Ref Range eGFR 38 mL/min/1.73 m2 Troponin T high-sensitivity 2-hour Collection Time: 07/22/23 12:41 PM Result Value Ref Range Trop T hs 20 (H) <=14 ng/L Trop T hs delta -23 (Critical) ng/L Trop T hs interp Significant (Critical) ASSESSMENT AND PLAN All Diagnosis Present on Admission Present on Admission: 1. CHF exacerbation. Differential diagnosis includes but not limited to asthma, COPD, PE, pleural effusion, bronchitis among other possible diagnosis. BNP 6674. CXR results as noted above. Continue IV Lasix. Consult Cardiology and we appreciate their evaluation and recommendations. 2. Acute on chronic kidney injury. Follow. BMP in a.m. and evaluate. 3. Atrial fibrillation. Continue Coreg. Xarelto 4. Anemia most likely of chronic disease. Follow. CBC in a.m. and evaluate. 5. GERD. Protonix. 6. Obesity. BMI 38.28. 7. PVD s/p AIF on 02/2022. Continue Xarelto. 8. Restless leg syndrome. Continue Mirapex. 9. DVT and GI prophylaxis initiated. I confirmed that the patient's Advance Care Plan is present, code status is documented, or surrogate decision maker is listed in the patient's medical record. CONSULTS None Anticipated date of discharge: To be determined per hospital course Florinda Haile NP 07/22/2023 1:39 PM [employer] Primary Care Physician: Pepper Morgan MD Voice recognition software [employer] was used dictate and transcribe this document. Big Data Engineer variances may occur. Despite proofreading, typographical errors may occur. Cosigned by Elizabeth Villarreal MD at 07/23/2023 9:20 AM ENVIRONMENTAL HEALTH SAFETY ENGINEER RONMENTAL HEALTH SAFETY ENGINEER RONMENTAL HEALTH SAFETY ENGINEER documented in this encounter Consult Notes * Rahat Harris MD - 07/23/2023 9:41 AM CSTAssociated Order(s): IP CONSULT TO CARDIOLOGY [place] [employer] Senior Manager Insurance Cardiology Consult Reason for Consult: Congestive heart failure Requesting Provider: Elizabeth Villarreal MDAttending Subjective Patient is a 87 y.o. female with chief complaint of edema and shortness of breath. 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 JONATHAN 10/24/2022 was 0.69 on theright and 0.77 on the left. She was seen in the office on 07/19/2023. She would gained 10 lb since her hospital discharge on 06/26/2023. Her metolazone was increased to 5 mg daily. She presented to the ER on 07/22/2023 with complaints of shortness of breath and ???I can not get rid of the fluid?? . She received furosemide 40 IV x 3 doses yesterday and diuresed - 2.1L. She has not been weighed this AM. She has no edema this AM but she is still short of breath. Remarkable laboratory: Creatinine 1.46, EGFR 35, potassium 3.5, NT proBNP 6674, troponin T 43, 20, 21, 26 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 CHF (congestive heart failure) (CMS/HCC) ([facility]) Cough DVT (deep venous thrombosis) (CMS/HCC) ([facility]) 1976 upper left arm near elbow--- Fibrocystic [...] TOTAL HIP ARTHROPLASTY Left 11/01/2021 Dr. Mckenzie, [facility]. Medications Prior to Admission Medication Sig Dispense Refill Last Dose albuterol HFA (Proventil HFA) 90 mcg/actuation inhaler Inhale 2 puffs every 6 (six) hours as neededfor wheezing or shortness of breath 6.7 g 3 07/21/2023 aspirin 81 mg enteric coated tablet Take 1 tablet (81 mg total) by mouth daily 07/22/2023 carvediloL (COREG) 6.25 mg tablet Take 1 tablet (6.25 mg total) by mouth 2 (two) times a day with meals 180 tablet 2 07/22/2023 cetirizine (ZyrTEC) 10 mg tablet Take 1 tablet (10 mg total) by mouth nightly 90 tablet 3 07/21/2023 cholecalciferol (VITAMIN D-3) 2000 unit tablet Take 1 tablet (2,000 Units total) by mouth daily 07/22/2023 empagliflozin (JARDIANCE) 10 mg tablet Take 1 tablet (10 mg total) by mouth daily 30 tablet 11 07/22/2023 felodipine (PLENDIL) 5 mg 24 hr tablet Take 1 tablet (5 mg total) by mouth daily 90 tablet 2 07/22/2023 fluticasone propion-salmeteroL (ADVAIR DISKUS) 100-50 mcg/dose diskus inhaler Inhale 1 puff 2 (two)times a day Rinse mouth with water after use. Do not swallow. 1 each 4 07/22/2023 furosemide (LASIX) 40 mg tablet Take 1 tablet (40 mg total) by mouth 2 (two) times a day 60 tablet 11 07/22/2023 metOLazone (ZAROXOLYN) 2.5 mg tablet Take 2 tablets (5 mg total) by mouth daily 07/22/[address] (PROTONIX) 40 mg EC tablet Take 1 tablet (40 mg total) by mouth daily 90 tablet 2 07/22/2023 polyethylene glycol (MIRALAX) 17 gram packet Take 1 packet (17 g total) by mouth daily as needed for constipation Past Month potassium chloride ER 20 mEq CR tablet Take 2 tablets (40 mEq total) by mouth 2 (two) times a day (Patient taking differently: Take 2-4 tablets (40-80 mEq total) by mouth 2 (two) times a day 80 meq in the morning 40 meq in the evening) 120 tablet 11 07/22/2023 pramipexole (MIRAPEX) 0.5 mg tablet Take 1 tablet (0.5 mg total) by mouth 2 (two) times a day 60 tablet 3 07/22/2023 propranoloL (INDERAL) 20 mg tablet Take 1 tablet (20 mg total) by mouth 2 (two) times a day as needed (Tremor) 180 tablet 2 Past Week rivaroxaban (XARELTO) 20 mg tablet Take 1 tablet (20 mg total) by mouth daily (Patient taking differently: Take 1 tablet (20 mg total) by mouth daily with lunch) 30 tablet 11 07/21/2023 Current Facility-Administered Medications: acetaminophen (TYLENOL) tablet 650 mg, 650 mg, oral, Q6H PRN, Florinda Haile NP, 650 mg at 07/22/232123 albuterol HFA (PROVENTIL HFA,VENTOLIN HFA,PROAIR HFA) 90 mcg/actuation inhaler 2 puff, 2 puff, inhalation, Q6H PRN (RT), Mich Sheppard MD carvediloL (COREG) tablet 6.25 mg, 6.25 mg, oral, BID with meals (bkfst, dinner), Mich Sheppard MD, 6.25 mg at 07/23/2330 cetirizine (ZyrTEC) tablet 10 mg, 10 mg, oral, Nightly, Florinda Haile NP, 10 mg at 07/22/232123 cholecalciferol (VITAMIN D-3) tablet 2,000 Units, 2,000 Units, oral, Daily, Florinda Haile NP, 2,000 Units at 07/23/23829 empagliflozin (JARDIANCE) tablet 10 mg, 10 mg, oral, Daily, Florinda Haile NP, 10 mg at 07/23/23829 fluticasone furoate-vilanteroL (BREO ELLIPTA) 100-25 mcg/dose inhaler 1 puff, 1 puff, inhalation, Daily (RT), Florinda Haile NP furosemide (LASIX) 10 mg/mL injection 40 mg, 40 mg, intravenous, Q12H GLORIA, Mich Sheppard MD, 40 mg at 07/22/232123 metOLazone (ZAROXOLYN) tablet 5 mg, 5 mg, oral, Daily, Mich Sheppard MD, 5 mg at 0 ondansetron (ZOFRAN) injection 4 mg, 4 mg, intravenous, Q6H PRN, Florinda Haile NP pantoprazole DR (PROTONIX) extended release tablet 40 mg, 40 mg, oral, Daily, Mich Sheppard MD, 40 mg at 07/23/23829 polyethylene glycol (MIRALAX) packet 17 g, 17 g, oral, Daily PRN, Florinda Haile NP potassium chloride ER (KLOR-CON) extended release tablet 40 mEq, 40 mEq, oral, BID, Florinda Haile NP, 40 mEq at 07/23/23829 pramipexole (MIRAPEX) tablet 0.5 mg, 0.5 mg, oral, BID, Florinda Haile NP, 0.5 mg at 07/22/232123 propranoloL (INDERAL) tablet 20 mg, 20 mg, oral, BID PRN, Florinda Haile NP rivaroxaban (XARELTO) tablet 20 mg, 20 mg, oral, Daily, Mich Sheppard MD, 20 mg at 07/23/23829 Allergies Allergen Reactions Celecoxib Anaphylaxis Scopolamine Mental status changes Delirium postop after joint replacement due to this medicine Sulfa (Sulfonamide Antibiotics) Anaphylaxis Amlodipine Swelling Lisinopril Swelling Trazodone Swelling Tongue Cipro [Ciprofloxacin Hcl] Vomiting Cymbalta [Duloxetine] Fatigue Sleepiness, tiredness possibly related to 20 mg morning dose of this medicine discontinued 11/30/2020 Sinemet [Carbidopa-Levodopa] Other (See comments) Night hines Social History Tobacco Use Smoking status: Former Packs/day: 2.00 Years: 30.00 Additional pack years: 0.00 Total pack years: 60.00 Types: Cigarettes Quit date: 1981 Years since quittin.1 Smokeless tobacco: Never Substance and Sexual Activity [...] Aneurysm Father COPD Father Review of Systems: Review of systems per HPI and otherwise all other systems are negative Objective Vitals: 24hr Min/Max: Temp Min: 36.2 ??C (97.2 ??F) Max: 37.1 ??C (98.7 ??F) Pulse Min: 66 Max: 89 BP Min: 101/54 Max: 127/64 Resp Min: 14 Max: 26 SpO2 Min: 91 % Max: 100 % Most Recent: Vitals: 07/23/23 0727 BP: 102/68 Pulse: 66 Resp: 20 Temp: 36.4 ??C (97.5 ??F) SpO2: 99% I/O last 2 completed shifts: In: 240 [P.O.:240] Out: 2340 [Urine:2340] No intake/output data recorded. Physical Exam: General appearance: appears stated age and cooperative Head: Normocephalic, without obvious abnormality, atraumatic Neck: no adenopathy, no carotid bruit, no JVD, supple, symmetrical, trachea midline, and thyroid not enlarged, symmetric, no tenderness/mass/nodules Lungs: clear to auscultation bilaterally Heart: irregularly irregular rhythm Abdomen: soft, non-tender; bowel sounds normal; no masses, no organomegaly Extremities: No edema Neurologic: Alert and oriented x4, non-focal Lab/Radiology/Diagnostic Review: Laboratory review: Lab results in the last 24 hours: Recent Results (from the past 24 hour(s)) Comprehensive metabolic panel Collection Time: 07/22/23 10:47 AM Result Value Ref Range Sodium 139 135 - 145 mmol/L Potassium, pl 4.5 3.3 - 4.9 mmol/L Chloride 99 97 - 110 mmol/L CO2 28 22 - 32 mmol/L Anion gap 12 2 - 15 mmol/L BUN 33 (H) 6 - 25 mg/dL Creatinine 1.37 (H) 0.60 - 1.10 mg/dL Glucose 120 70 - 199 mg/dL Calcium 9.2 8.5 - 10.3 mg/dL Bilirubin, total 0.4 0.1 - 1.2 mg/dL Protein, pl 6.9 6.5 - 8.5 g/dL Albumin 3.7 3.5 - 5.0 g/dL Alk phos 156 (H) 40 - 130 Units/L ALT 17 7 - 45 Units/L AST 18 10 - 45 Units/L CBC with auto differential Collection Time: 07/22/23 10:47 AM Result Value Ref Range WBC 8.9 3.8 - 9.9 K/cumm Hgb 8.2 (L) 11.9 - 15.5 g/dL Hct 29.2 (L) 35.6 - 45.5 % Plt 378 150 - 400 K/cumm MPV 9.4 9.1 - 12.3 fL RBC 3.91 3.90 - 5.20 M/cumm MCV 74.7 (L) 81.3 - 96.4 fL MCH 21.0 (L) 27.1 - 33.3 pg MCHC 28.1 (L) 32.3 - 35.7 g/dL RDW CV 17.3 (H) 11.1 - 14.9 % RDW SD 46.5 35.7 - 48.1 fL NRBC abs 0.00 0.00 - 0.01 K/cumm Troponin T high-sensitivity series (baseline, 2hr, 4hr, 6hr) Collection Time: 07/22/23 10:47 AM Result Value Ref Range Trop T hs 43 (H) <=14 ng/L aPTT Collection Time: 07/22/23 10:47 AM Result Value Ref Range aPTT 40 (H) 28 - 38 sec Pro B-type natriuretic peptide Collection Time: 07/22/23 10:47 AM Result Value Ref Range NT-proBNP 6,674 (H) <=450 pg/mL Differential, auto Collection Time: 07/22/23 10:47 AM Result Value Ref Range Neutrophil abs 7.0 (H) 1.5 - 6.5 K/cumm Imm gran abs 0.1 0.0 - 0.1 K/cumm Lymphocyte abs 0.8 0.8 - 3.3 K/cumm Monocyte abs 0.6 0.2 - 0.8 K/cumm Eosinophil abs 0.4 0.0 - 0.5 K/cumm Basophil abs 0.0 0.0 - 0.1 K/cumm Neutrophil pct 78.9 % Imm gran pct 1.0 % Lymphocyte pct 8.8 % Monocyte pct 6.6 % Eosinophil pct 4.2 % Basophil pct 0.5 % eGFR Collection Time: 07/22/23 10:47 AM Result Value Ref Range eGFR 38 mL/min/1.73 m2 Troponin T high-sensitivity 2-hour Collection Time: 07/22/23 12:41 PM Result Value Ref Range Trop T hs 20 (H) <=14 ng/L Trop T hs delta -23 (Critical) ng/L Trop T hs interp Significant (Critical) Lipid panel Collection Time: 07/22/23 12:41 PM Result Value Ref Range Cholesterol 128 30 - 199 mg/dL Triglycerides 96 <=149 mg/dL HDL 45 >=40 mg/dL LDL, calculated 64 <=129 mg/dL Non-HDL Cholesterol 83 mg/dL Chol/HDL ratio 3 Troponin T high-sensitivity 4-hour Collection Time: 07/22/23 2:29 PM Result Value Ref Range Trop T hs 21 (H) <=14 ng/L Trop T hs delta -22 (Critical) ng/L Trop T hs interp Significant (Critical) Troponin T high-sensitivity 6-hour Collection Time: 07/22/23 7:39 PM Result Value Ref Range Trop T hs 26 (H) <=14 ng/L Trop T hs delta See Comment ng/L Trop T hs pct delta See Comment % Trop T hs interp See Comment CBC with auto differential Collection Time: 07/23/23 5:23 AM Result Value Ref Range WBC 6.5 3.8 - 9.9 K/cumm Hgb 7.6 (L) 11.9 - 15.5 g/dL Hct 26.6 (L) 35.6 - 45.5 % Plt 334 150 - 400 K/cumm MPV 9.4 9.1 - 12.3 fL RBC 3.62 (L) 3.90 - 5.20 M/cumm MCV 73.5 (L) 81.3 - 96.4 fL MCH 21.0 (L) 27.1 - 33.3 pg MCHC 28.6 (L) 32.3 - 35.7 g/dL RDW CV 17.4 (H) 11.1 - 14.9 % RDW SD 46.1 35.7 - 48.1 fL NRBC abs 0.00 0.00 - 0.01 K/cumm Basic metabolic panel Collection Time: 07/23/23 5:23 AM Result Value Ref Range Sodium 139 135 - 145 mmol/L Potassium, pl 3.5 3.3 - 4.9 mmol/L Chloride 98 97 - 110 mmol/L CO2 30 22 - 32 mmol/L Anion gap 11 2 - 15 mmol/L BUN 36 (H) 6 - 25 mg/dL Creatinine 1.46 (H) 0.60 - 1.10 mg/dL Glucose 93 70 - 199 mg/dL Calcium 9.2 8.5 - 10.3 mg/dL Differential, auto Collection Time: 07/23/23 5:23 AM Result Value Ref Range Neutrophil abs 4.6 1.5 - 6.5 K/cumm Imm gran abs 0.1 0.0 - 0.1 K/cumm Lymphocyte abs 0.9 0.8 - 3.3 K/cumm Monocyte abs 0.7 0.2 - 0.8 K/cumm Eosinophil abs 0.4 0.0 - 0.5 K/cumm Basophil abs 0.1 0.0 - 0.1 K/cumm Neutrophil pct 69.5 % Imm gran pct 0.8 % Lymphocyte pct 13.2 % Monocyte pct 10.0 % Eosinophil pct 5.7 % Basophil pct 0.8 % eGFR Collection Time: 07/23/23 5:23 AM Result Value Ref Range eGFR 35 mL/min/1.73 m2 Lipids: Lab Results Component Value Date CHOL 128 07/22/2023 HDL 45 07/22/2023 LDLCALC 64 07/22/2023 TRIG 96 07/22/2023 CHOLHDL 3 07/22/2023 and Cardiac Enzymes: No results found for: CKTOTAL , CKMB , CKMBINDEX , TROPONINT ECG: Reviewed by me, atrial fibrillation, low voltage in precordial leads CXR: Bilateral hilar enlargement.. Lexiscan nuclear stress test 05/09/2022: 1. Myocardial Perfusion: Normal rest and stress images. 2. Left ventricle: Normal size and systolic function (visually confirmed EF >50%). Echocardiogram 06/15/2023: Technically difficult study with limited views. Normal [...] by planimetry 1.7 cm2. No aortic regurgitation. Assessment /Plan Principal Problem: Acute congestive heart failure, unspecified heart failure type (HCC) Impression Decompensated HFpEF. The patients H2FpEF score is 8., HFA-PEFF score is 7. Guideline directed therapy for HFpEF with LVEF >60 is SGLT2i + loop diuretic + mineralocarticoid antagnast (JACC Vol 81, No 18, 2022.). Therefore I recommend treating the patient with empagliflozin, Furosemide and spironolactone.Monitor I/O , daily weights and renal function. intermediate card tender she needs nonpharmacological interventions to include weight loss and exercise. Iron deficiency anemia. She is scheduled for iron infusion as outpatient next week. I ordered iron infusion for this admission as her Hgb is down to 7.6 gm and this may be contributing to her dyspnea. PAD- stable Atrial Fibrillation Chronic. Continue beta blockers for rate control and Xarelto.Reduce Xarelto to 15 mg daily because eGFR < 51. CKD-3 RONMENTAL HEALTH SAFETY ENGINEER RONMENTAL HEALTH SAFETY ENGINEER documented in this encounter ED Notes * Mich Sheppard MD - 07/22/2023 12:06 PM CST HPI Chief Complaint Patient presents with Shortness of Breath 87-year-old female with the past medical history significant for congestive heart failure, history of atrial fibrillation, presents to the emergency room with complaining of having shortness of breath and associated with weight gain. Patient states exertional dyspnea denies chest pain at this time denies fever chills cough or congestion History provided by: Patient Patient History: Patient Active Problem List Diagnosis Date Noted Acute congestive heart failure, unspecified heart failure type ([facility]) 06/24/2023 Acute on chronic heart failure, unspecified heart failure type ([facility]) 06/14/2023 [place] of macula of both eyes 05/30/2023 Mild persistent asthma 03/13/2023 Morbid (severe) obesity due to excess calories ([facility]) 02/07/2023 Hospital discharge follow-up 01/11/2023 Gait disturbance 11/11/2022 Chronic heart failure with preserved ejection fraction ([facility]/HCC) ([facility]) 07/25/2022 Postural kyphosis of cervicothoracic region 01/24/2022 snf current use of anticoagulant 11/16/2021 Peripheral arterial disease ([facility]) 11/09/2021 SOBOE (shortness of breath on exertion) 04/21/2021 Atrial fibrillation ([facility]) ([facility]) 04/21/2021 Iron deficiency anemia, unspecified 08/08/2019 Bariatric [...] of nose 09/2008 CHF (congestive heart failure) ([facility]) ([facility]) Cough DVT (deep venous thrombosis) ([facility]) ([facility]) 1976 upper left arm near elbow--- Fibrocystic [...] TOTAL HIP ARTHROPLASTY Left 11/01/2021 Dr. Mckenzie, [facility]. Family History Problem Relation Age of Onset Cancer Other Family history of Cancer, unknown; Arthritis Other Family history of Arthritis; Abdominal Aortic Aneurysm Father COPD Father Social History Tobacco Use Smoking status: Former Packs/day: 2.00 Years: 30.00 Additional pack years: 0.00 Total pack years: 60.00 Types: Cigarettes Quit date: 1981 Years since quittin.1 Smokeless tobacco: Never Vaping Use Vaping Use: Never used Substance and Sexual Activity Alcohol use: Not Currently Drug use: Never Sexual activity: Defer Social History Social History Narrative Not on file Review of Systems Review of Systems Constitutional: Negative for chills, fatigue and fever. HENT: Negative for congestion, ear discharge, ear pain, postnasal drip, sinus pressure, sinus pain and sore throat. Eyes: Negative for discharge, redness and visual disturbance. Respiratory: Positive for shortness of breath. Negative for cough, chest tightness and wheezing. Cardiovascular: Negative for chest pain and palpitations. Gastrointestinal: Negative for abdominal pain, blood in stool, diarrhea, nausea and vomiting. Endocrine: Negative for cold intolerance, polydipsia and polyuria. Genitourinary: Negative for difficulty urinating, dysuria, flank pain, hematuria and urgency. Musculoskeletal: Negative for back pain, joint swelling, myalgias, neck pain and neck stiffness. Skin: Negative for pallor and rash. Allergic/Immunologic: Negative for environmental allergies and food allergies. Neurological: Negative for dizziness, facial asymmetry, speech difficulty, weakness, light-headedness, numbness and headaches. Hematological: Negative for adenopathy. Psychiatric/Behavioral: Negative for agitation, confusion and hallucinations. All other systems reviewed and are negative. Physical Exam ED Triage Vitals Temp Pulse Resp BP SpO2 07/22/23 1030 07/22/23 1030 07/22/23 1030 07/22/23 1029 07/22/23 1030 36.3 ??C (97.4 ??F) 82 20 113/62 100 % Temp src Heart Rate Source Patient Position BP Location FiO2 (%) -- -- -- -- -- Height Height Method Weight Weight Method 07/22/23 1029 -- 07/22/23 1029 -- 1.524 m (5') 88.9 kg (196 lb) Physical Exam Vitals and nursing note reviewed. Constitutional: General: She is not in acute distress. Appearance: She is well-developed. HENT: Head: Normocephalic and atraumatic. Mouth/Throat: Pharynx: No oropharyngeal exudate. Eyes: Conjunctiva/sclera: Conjunctivae normal. Pupils: Pupils are equal, round, and reactive to light. Neck: Trachea: No tracheal deviation. Cardiovascular: Rate and Rhythm: Normal rate and regular rhythm. Heart sounds: No murmur heard. No friction rub. No gallop. Pulmonary: Effort: Pulmonary effort is normal. No respiratory distress. Breath sounds: Examination of the right-lower field reveals decreased breath sounds and rales. Examination of the left-lower field reveals decreased breath sounds and rales. Decreased breath sounds and rales present. No wheezing. Abdominal: General: Bowel sounds are normal. There is no distension. Palpations: Abdomen is soft. Tenderness: There is no abdominal tenderness. There is no guarding or rebound. Musculoskeletal: General: No tenderness or deformity. Normal range of motion. Cervical back: Neck supple. Lymphadenopathy: Cervical: No cervical adenopathy. Skin: General: Skin is dry. Neurological: Mental Status: She is alert and oriented to person, place, and time. Cranial Nerves: No cranial nerve deficit. Sensory: No sensory deficit. Motor: No abnormal muscle tone. Coordination: Coordination normal. Deep Tendon Reflexes: Reflexes normal. Psychiatric: Behavior: Behavior normal. MDM Medical Decision Making 87-year-old female with past medical history significant for congestive heart failure presents withcomplaints of having exertional dyspnea differentials include rule out congestive heart failure rule out pneumonia Amount and/or Complexity of Data Reviewed Labs: ordered. ECG/medicine tests: ordered and independent interpretation performed. Risk Prescription drug management. ED Course as of 07/22/23 1348 Time: 07/22 1208 Comment: Will obtain a cardiac workup with a BNP By: Mich Sheppard MD Time: 07/22 1347 Comment: Reviewed the lab and imaging results patient in congestive heart failure will admit discussed with Ms. Neely nurse practitioner for Dr. Restrepo who agrees to admit this patient and will follow up By: Mich Sheppard MD Final diagnoses: Shortness of breath Acute systolic congestive heart failure (CMS/HCC) (HCC) Mich Sheppard MD 07/22/23 1208 Mich Sheppard MD 07/22/23 1348 RONMENTAL HEALTH SAFETY ENGINEER RONMENTAL HEALTH SAFETY ENGINEER * Tami Bains RN - 07/22/2023 10:27 AM CST Pt complains of shortness of breath and weight gain. RONMENTAL HEALTH SAFETY ENGINEER documented in this encounter Miscellaneous Notes * Plan of Care - Melissa Johnson RN - 07/25/2023 1:54 PM CST Goals: Clinical Goals for the Shift: monitor tele.,diurese,weigh daily,poss d/c home later today. Summary: pt. D/c'd home with dtr. RONMENTAL HEALTH SAFETY ENGINEER * Plan of Care - Jaleesa Soto RN - 07/25/2023 12:01 PM CST CM informed by nurse patient was discharging today. No CM needs. PT recommending home with intermittent assist. IMM reviewed and copy given. Daughter at bedside and will provide ride home. Discharge code - 01 home Jaleesa Soto RN, BSN Case Management [phone] RONMENTAL HEALTH SAFETY ENGINEER * Plan of Care - Jason Robles RN - 07/24/2023 8:56 PM CST Goals: Clinical Goals for the Shift: Diuresis, stable vitals, monitor labs, monitor BP, safety precautions, comfort measures Summary: Problem: Health Behavior: Goal: Understanding of discharge needs will improve Outcome: Progressing Problem: Activity: Goal: Ability to return to normal activity level will improve Outcome: Progressing Problem: Lack of Knowledge: Goal: Knowledge of the prescribed therapeutic regimen will improve Outcome: Progressing Problem: Coping: Goal: Ability to cope will improve Outcome: Progressing Problem: Health Behavior: Goal: Identification of resources available to assist in meeting health care needs will improve Outcome: Progressing Problem: Sensory: Goal: Pain level will decrease Outcome: Progressing Problem: Activity: Goal: Capacity to carry out activities will improve Outcome: Progressing Problem: Cardiac: Goal: Cardiovascular alteration will improve Outcome: Progressing Goal: Hemodynamic stability will improve Outcome: Progressing Problem: Lack of Knowledge: Goal: Verbalization of understanding the information provided will improve Outcome: Progressing Problem: Fluid Volume: Goal: Risk for excess fluid volume will decrease Outcome: Progressing Problem: Health Behavior: Goal: Ability to seek appropriate health care will improve Outcome: Progressing Problem: Physical Regulation: Goal: Complications related to the disease process, condition or treatment will be avoided or minimized Outcome: Progressing Goal: Diagnostic test results will improve Outcome: Progressing Problem: Respiratory: Goal: Ability to maintain a clear airway will improve Outcome: Progressing Goal: Respiratory status will improve Outcome: Progressing Problem: Safety: Goal: Will remain free from falls Outcome: Progressing Problem: Respiratory: Goal: Ability to maintain a clear airway will improve Outcome: Progressing RONMENTAL HEALTH SAFETY ENGINEER * Plan of Care - Hannah Nava RN - 07/24/2023 6:26 PM CST Goals: Clinical Goals for the Shift: VSS, remain free from falls, IV lasix Summary: VSS. Patient ambulated safely in room with 1PA. PRN tylenol x1. PRN propanolol for tremors. Problem: Health Behavior: Goal: Understanding of discharge needs will improve Outcome: Progressing Problem: Activity: Goal: Ability to return to normal activity level will improve Outcome: Progressing Problem: Lack of Knowledge: Goal: Knowledge of the prescribed therapeutic regimen will improve Outcome: Progressing Problem: Coping: Goal: Ability to cope will improve Outcome: Progressing Problem: Health Behavior: Goal: Identification of resources available to assist in meeting health care needs will improve Outcome: Progressing Problem: Sensory: Goal: Pain level will decrease Outcome: Progressing Problem: Activity: Goal: Capacity to carry out activities will improve Outcome: Progressing Problem: Cardiac: Goal: Cardiovascular alteration will improve Outcome: Progressing Goal: Hemodynamic stability will improve Outcome: Progressing Problem: Lack of Knowledge: Goal: Verbalization of understanding the information provided will improve Outcome: Progressing Problem: Fluid Volume: Goal: Risk for excess fluid volume will decrease Outcome: Progressing Problem: Health Behavior: Goal: Ability to seek appropriate health care will improve Outcome: Progressing Problem: Physical Regulation: Goal: Complications related to the disease process, condition or treatment will be avoided or minimized Outcome: Progressing Goal: Diagnostic test results will improve Outcome: Progressing Problem: Respiratory: Goal: Ability to maintain a clear airway will improve Outcome: Progressing Goal: Respiratory status will improve Outcome: Progressing Problem: Safety: Goal: Will remain free from falls Outcome: Progressing Problem: Respiratory: Goal: Ability to maintain a clear airway will improve Outcome: Progressing RONMENTAL HEALTH SAFETY ENGINEER * Plan of Care - Mckenzie Sin MSW - 07/24/2023 11:49 AM CST SW consult received for ACP. SW attempted to meet with pt, however she was getting lab work done. SW did a chart review and pt has a POA, however it does not appear to be notarized. SW also noted that pt has a DNR on file. SW will attempt to meet with pt again at a later time. RONNA Holley Risk Consultant Case Management RONMENTAL HEALTH SAFETY ENGINEER * Initial Assessments - Jaleesa Soto RN - 07/24/2023 11:25 AM CST CM Initial Assessment Interview Note Information Obtained From: Patient (07/24/231124) Admission Source: ER - from home Impression: SOB and weight gain Plan Includes: IV lasix, Cardiology c/s, monitor labs, continue xarelto Primary Source of Transportation: self Does the patient need discharge transport arranged?: No (07/24/231124) Health Insurance Coverage: Medicare A&B/[facility] Prescription Coverage: yes Pharmacy: [email or web address] [id number] [place] [address] [address] [facility] Portal to Registered [facility] [place] [facility] [place] [address] Primary Care Provider: Pepper Morgan MD Prior to Admission: Functional Status: Independent with ADLs Primary Caregiver: Self Support System: Children Home Care Services: No Outpatient Services: No Durable Medical Equipment: Cane (single prong), Walker (wheeled), Walker (no wheels) Living Arrangements: Alone Type of Residence: Private residence Steps in home?: No steps inside or outside Medication management: Needs Assistance (Comment) (daughter) (07/24/231124) SDOH: Transportation: In the past 12 months, has lack of transportation kept you from medical appointments or from getting medications?: No In the past 12 months, has lack of transportation kept you from meetings, work, or from getting things needed for daily living?: No (07/24/23 1200) Financial Resource: How hard is it for you to pay for the very basics like food, housing, medical care, and heating?: Not very hard (07/24/23 1200) Housing: In the last 12 months, was there a time when you were not able to pay the mortgage or rent on time?: No In the last 12 months, how many places have you lived?: 1 In the last 12 months, was there a time when you did not have a steady place to sleep or slept in ashelter (including now)?: No (07/24/23 120) Utilities: No, (07/24/23 1200) Social Connections: In a typical week, how many times do you talk on the phone with family, friends, or neighbors?: More than three times a week How often do you get together with friends or relatives?: Three times a week How often do you attend muslim or yarsanism services?: Never Do you belong to any clubs or organizations such as muslim groups, unions, fraternal or athletic groups, or school groups?: No How often do you attend meetings of the clubs or organizations you belong to?: Never Are you , , , , never , or living with a partner?: (07/24/231199) Food Insecurity: Alcohol Use: PHQ Screening Potential discharge needs include: Home Health: Physical therapy, Occupational therapy (07/24/231124) Dialysis: n/a Behavioral Health Services: Behavioral Health Services: No (07/24/231124) Patient expects to be Discharged to: Private residence, (07/24/231124) Additional Information: CM met with patient at bedside to discuss plan of care, anticipated discharge date, and goals for discharge. SDOH completed. Patient lives alone in senior apartment. Patient uses [facility]. She receives SSI and is able to afford her medications. Patient is independent and uses a walker in the house and rollator when out. She drives herself. Daughter assists with medications. Copy of AD in chart, Florinda Dequan is POA. Patient will have a ride home at discharge. PT/OT eval pending. CM will continue to follow and assist with discharge planning. Patient's Identified Problem/Goal Problem: Ensure acute medical needs are met and that patient has a safe discharge plan. Goal: Secure a discharge plan that patient/family are agreeable with and ensure patient has continuum of care. Case management will follow for discharge planning and send referrals as needed. Goals include: To assure continuity of care, To maximize coping skills, To assure patient is in a safe environment and To assure access to community resources. Plan includes: 1. Collaboration with patient, MD, direct care nurse, Risk Consultant, and other members of the health care team to assure needed interventions completed. 2. Return patient to optimal level of self-care post discharge. 3. Decorating Machine Operator will follow for Discharge Planning - interventions as needed 4. Anticipated level of care at discharge 5. Planned Discharge Disposition Jaleesa Soto RN, BSN Case Management [phone] RONMENTAL HEALTH SAFETY ENGINEER * Plan of Care - Jason Robles RN - 07/23/2023 9:30 PM CST Goals: Clinical Goals for the Shift: Diuresis, stable vitals, monitor labs, monitor BP, safety precautions, comfort measures Summary: Problem: Health Behavior: Goal: Understanding of discharge needs will improve Outcome: Progressing Problem: Activity: Goal: Ability to return to normal activity level will improve Outcome: Progressing Problem: Lack of Knowledge: Goal: Knowledge of the prescribed therapeutic regimen will improve Outcome: Progressing Problem: Coping: Goal: Ability to cope will improve Outcome: Progressing Problem: Health Behavior: Goal: Identification of resources available to assist in meeting health care needs will improve Outcome: Progressing Problem: Sensory: Goal: Pain level will decrease Outcome: Progressing Problem: Activity: Goal: Capacity to carry out activities will improve Outcome: Progressing Problem: Cardiac: Goal: Cardiovascular alteration will improve Outcome: Progressing Goal: Hemodynamic stability will improve Outcome: Progressing Problem: Lack of Knowledge: Goal: Verbalization of understanding the information provided will improve Outcome: Progressing Problem: Fluid Volume: Goal: Risk for excess fluid volume will decrease Outcome: Progressing Problem: Health Behavior: Goal: Ability to seek appropriate health care will improve Outcome: Progressing Problem: Physical Regulation: Goal: Complications related to the disease process, condition or treatment will be avoided or minimized Outcome: Progressing Goal: Diagnostic test results will improve Outcome: Progressing Problem: Respiratory: Goal: Ability to maintain a clear airway will improve Outcome: Progressing Goal: Respiratory status will improve Outcome: Progressing Problem: Safety: Goal: Will remain free from falls Outcome: Progressing Problem: Respiratory: Goal: Ability to maintain a clear airway will improve Outcome: Progressing RONMENTAL HEALTH SAFETY ENGINEER * Plan of Care - Je Marshall RRT - 07/23/2023 10:49 AM CST Event of the shift: No current respiratory distress Current Interventions/Protocols: Breo Breath Sounds:Diminished bilaterally RONMENTAL HEALTH SAFETY ENGINEER * Plan of Care - Jason Robles RN - 07/22/2023 9:40 PM CST Goals: Clinical Goals for the Shift: Diuresis, stable vitals, monitor labs, monitor BP, safety precautions, comfort measures Summary: Problem: Health Behavior: Goal: Understanding of discharge needs will improve Outcome: Progressing Problem: Activity: Goal: Ability to return to normal activity level will improve Outcome: Progressing Problem: Lack of Knowledge: Goal: Knowledge of the prescribed therapeutic regimen will improve Outcome: Progressing Problem: Coping: Goal: Ability to cope will improve Outcome: Progressing Problem: Health Behavior: Goal: Identification of resources available to assist in meeting health care needs will improve Outcome: Progressing Problem: Sensory: Goal: Pain level will decrease Outcome: Progressing Problem: Activity: Goal: Capacity to carry out activities will improve Outcome: Progressing Problem: Cardiac: Goal: Cardiovascular alteration will improve Outcome: Progressing Goal: Hemodynamic stability will improve Outcome: Progressing Problem: Lack of Knowledge: Goal: Verbalization of understanding the information provided will improve Outcome: Progressing Problem: Fluid Volume: Goal: Risk for excess fluid volume will decrease Outcome: Progressing Problem: Health Behavior: Goal: Ability to seek appropriate health care will improve Outcome: Progressing Problem: Physical Regulation: Goal: Complications related to the disease process, condition or treatment will be avoided or minimized Outcome: Progressing Goal: Diagnostic test results will improve Outcome: Progressing Problem: Respiratory: Goal: Ability to maintain a clear airway will improve Outcome: Progressing Goal: Respiratory status will improve Outcome: Progressing Problem: Safety: Goal: Will remain free from falls Outcome: Progressing RONMENTAL HEALTH SAFETY ENGINEER * ED Procedure Note - Mich Sheppard MD - 07/22/2023 12:08 PM ENVIRONMENTAL HEALTH SAFETY ENGINEER Associated Order(s): ECG 12 lead Procedure ECG 12 lead Date/Time: 07/22/2023 12:08 PM Performed by: Mich Sheppard MD Authorized by: Mich Sheppard MD Rate: ECG rate: 73 ECG rate assessment: normal Rhythm: Rhythm: atrial fibrillation Ectopy: Ectopy: none QRS: QRS axis: Normal QRS intervals: Normal Conduction: Conduction: normal ST segments: ST segments: Non-specific T waves: T waves: non-specific Interpretation: Interpretation comment: Atrial fibrillation nonspecific ST change Mich Sheppard MD 07/22/23 1209 RONMENTAL HEALTH SAFETY ENGINEER documented in this encounter Plan of Treatment [...] Procedure Name Priority Date/Time Associated Diagnosis Comments DIFFERENTIAL AUTO Routine 07/24/2023 11: 54 AM ENVIRONMENTAL HEALTH SAFETY ENGINEER CBC WITH AUTO DIFFERENTIAL Routine 07/24/2023 11:54 AM ENVIRONMENTAL HEALTH SAFETY ENGINEER MAGNESIUM Routine 07/24/2023 11:54 AM ENVIRONMENTAL HEALTH SAFETY ENGINEER EGFR Routine 07/23/2023 5:23 AM ENVIRONMENTAL HEALTH SAFETY ENGINEER DIFFERENTIAL AUTO Routine 07/23/2023 5:2 3 AM ENVIRONMENTAL HEALTH SAFETY ENGINEER CBC WITH AUTO DIFFERENTIAL Routine 07/23/2023 5:23 AM ENVIRONMENTAL HEALTH SAFETY ENGINEER BASIC METABOLIC PANEL Routine 07/23/2023 5:23 AM ENVIRONMENTAL HEALTH SAFETY ENGINEER TROPONIN T HIGH-SENSITIVITY 6-HOUR Timed 07/22/2023 7:39 PM ENVIRONMENTAL HEALTH SAFETY ENGINEER TROPONIN T HIGH-SENSITIVITY 4-HR Timed 07/22/2023 2:29 PM ENVIRONMENTAL HEALTH SAFETY ENGINEER TROPONIN T HIGH-SENSITIVITY 2-HOUR Timed 07/22/2023 12:41 PM ENVIRONMENTAL HEALTH SAFETY ENGINEER LIPID PANEL Timed 07/22/2023 12:41 PM ENVIRONMENTAL HEALTH SAFETY ENGINEER XR CHEST 1 VIEW ED 07/22/2023 11:10 AM ENVIRONMENTAL HEALTH SAFETY ENGINEER TROPONIN T HIGH-SENSITIVITY SERIES (BASELINE, 2HR, 4HR, 6HR) STAT 07/22/2023 10:47 AM ENVIRONMENTAL HEALTH SAFETY ENGINEER EGFR STAT 07/22/2023 10:47 AM ENVIRONMENTAL HEALTH SAFETY ENGINEER DIFFERENTIAL AUTO STAT 07/22/2023 10: 47 AM ENVIRONMENTAL HEALTH SAFETY ENGINEER PRO B-TYPE NATRIURETIC PEPTIDE STAT 07/22/2023 10:47 AM ENVIRONMENTAL HEALTH SAFETY ENGINEER CBC WITH AUTO DIFFERENTIAL STAT 07/22/2023 10:47 AM ENVIRONMENTAL HEALTH SAFETY ENGINEER APTT STAT 07/22/2023 10:47 AM ENVIRONMENTAL HEALTH SAFETY ENGINEER COMPREHENSIVE METABOLIC PANEL STAT 07/22/2023 10:47 AM ENVIRONMENTAL HEALTH SAFETY ENGINEER ECG 12-LEAD STAT 07/22/2023 10:31 AM ENVIRONMENTAL HEALTH SAFETY ENGINEER documented in this encounter Results * (ABNORMAL) Differential, auto (07/24/2023 11:54 AM ENVIRONMENTAL HEALTH SAFETY ENGINEER) Neutrophil abs 5.8 1.5 - 6.5 K/cumm [facility] Imm gran abs 0.1 0.0 - 0.1 K/cumm [facility] Lymphocyte abs 0.7(L) 0.8 - 3.3 K/cumm [facility] Monocyte abs 0.7 0.2 - 0.8 K/cumm [facility] Eosinophil abs 0.3 0.0 - 0.5 K/cumm [facility] Basophil abs 0.1 0.0 - 0.1 K/cumm [facility] Neutrophil pct 75.3 % [facility] Comment: Interpretive Data Percent cell count reference ranges are not reported, since discordance with absolute values may lead to misinterpretation of CBC data. Current Interpretive Data was last revised on 2017. Imm gran pct 1.4 % [facility] Comment: Interpretive Data Percent cell count reference ranges are not reported, since discordance with absolute values may lead to misinterpretation of CBC data. Current Interpretive Data was last revised on 2017. Lymphocyte pct 9.5 % [facility] Comment: Interpretive Data Percent cell count reference ranges are not reported, since discordance with absolute values may lead to misinterpretation of CBC data. Current Interpretive Data was last revised on 2017. Monocyte pct 9.5 % [facility] Comment: Interpretive Data Percent cell count reference ranges are not reported, since discordance with absolute values may lead to misinterpretation of CBC data. Current Interpretive Data was last revised on 2017. Eosinophil pct 3.7 % [facility] Comment: Interpretive Data Percent cell count reference ranges are not reported, since discordance with absolute values may lead to misinterpretation of CBC data. Current Interpretive Data was last revised on 2017. Basophil pct 0.6 % [facility] Comment: Interpretive Data Percent cell count reference ranges are not reported, since discordance with absolute values may lead to misinterpretation of CBC data. Current Interpretive Data was last revised on 2017. Blood 07/24/2023 11:5 4 AM ENVIRONMENTAL HEALTH SAFETY ENGINEER 07/24/2023 11:58 AM ENVIRONMENTAL HEALTH SAFETY ENGINEER us Carlos Lakhani ESCAPEMENT MATCHER LAB BLOOD ORDERABLES Final R esult [facility] [id number] [place] [place] [address] * (ABNORMAL) CBC with auto differential (07/24/2023 11:54 AM ENVIRONMENTAL HEALTH SAFETY ENGINEER) WBC 7.8 3.8 - 9.9 K/cumm [facility] Hgb 8.2(L) 11.9 - 15.5 g/dL [facility] Hct 28.5(L) 35.6 - 45.5 % [facility] Plt 393 150 - 400 K/cumm [facility] MPV 9.2 9.1 - 12.3 fL [facility] RBC 3.86(L) 3.90 - 5.20 M/cumm [facility] MCV 73.8(L) 81.3 - 96.4 fL [facility] MCH 21.2(L) 27.1 - 33.3 pg [facility] MCHC 28.8(L) 32.3 - 35.7 g/dL [facility] RDW CV 17.4(H) 11.1 - 14.9 % [facility] RDW SD 46.5 35.7 - 48.1 fL [facility] NRBC abs 0.00 0.00 - 0.01 K/cumm [facility] Blood 07/24/2023 11:5 4 AM ENVIRONMENTAL HEALTH SAFETY ENGINEER 07/24/2023 11:58 AM ENVIRONMENTAL HEALTH SAFETY ENGINEER Carlos Lakhani NP LAB BLOOD ORDERABLES Final R esult Performing Organization Address City/[facility] Co de Phone Number [facility] [address] [facility] [address] * Magnesium (07/24/2023 11:54 AM ENVIRONMENTAL HEALTH SAFETY ENGINEER) Pathologist [facility] Magnesium 2.1 1.4 - 2.5 mg/dL [facility] Blood 07/24/2023 11:5 4 AM ENVIRONMENTAL HEALTH SAFETY ENGINEER 07/24/2023 11:58 AM ENVIRONMENTAL HEALTH SAFETY ENGINEER Carlos Lakhani NP LAB BLOOD ORDERABLES Final R esult Performing Organization Address City/[facility] Co de Phone Number [facility] [address] [place] [address] * eGFR (07/23/2023 5:23 AM ENVIRONMENTAL HEALTH SAFETY ENGINEER) eGFR 35 mL/min/1. 73 m2 [facility] Comment: Interpretive Data Reference Interval Normal ?>/= [...] interpretive data was last reviewed 2021. Blood 07/23/2023 5:23 AM ENVIRONMENTAL HEALTH SAFETY ENGINEER 07/23/2023 6:23 AM ENVIRONMENTAL HEALTH SAFETY ENGINEER Florinda Haile NP LAB BLOOD ORDERABLES Final R esult [facility] [id number] Department [place] [address] * Differential, auto (07/23/2023 5:23 AM ENVIRONMENTAL HEALTH SAFETY ENGINEER) Pathologist [facility] Neutrophil abs 4.6 1.5 - 6.5 K/cumm [facility] Imm gran abs 0.1 0.0 - 0.1 K/cumm [facility] Lymphocyte abs 0.9 0.8 - 3.3 K/cumm [facility] Monocyte abs 0.7 0.2 - 0.8 K/cumm [facility] Eosinophil abs 0.4 0.0 - 0.5 K/cumm [facility] Basophil abs 0.1 0.0 - 0.1 K/cumm [facility] Neutrophil pct 69.5 % [facility] Comment: Interpretive Data Percent cell count reference ranges are not reported, since discordance with absolute values may lead to misinterpretation of CBC data. Current Interpretive Data was last revised on 2017. Imm gran pct 0.8 % [facility] Comment: Interpretive Data Percent cell count reference ranges are not reported, since discordance with absolute values may lead to misinterpretation of CBC data. Current Interpretive Data was last revised on 2017. Lymphocyte pct 13.2 % [facility] Comment: Interpretive Data Percent cell count reference ranges are not reported, since discordance with absolute values may lead to misinterpretation of CBC data. Current Interpretive Data was last revised on 2017. Monocyte pct 10.0 % [facility] Comment: Interpretive Data Percent cell count reference ranges are not reported, since discordance with absolute values may lead to misinterpretation of CBC data. Current Interpretive Data was last revised on 2017. Eosinophil pct 5.7 % [facility] Comment: Interpretive Data Percent cell count reference ranges are not reported, since discordance with absolute values may lead to misinterpretation of CBC data. Current Interpretive Data was last revised on 2017. Basophil pct 0.8 % [facility] Comment: Interpretive Data Percent cell count reference ranges are not reported, since discordance with absolute values may lead to misinterpretation of CBC data. Current Interpretive Data was last revised on 2017. Blood 07/23/2023 5:2 3 AM ENVIRONMENTAL HEALTH SAFETY ENGINEER 07/23/2023 6:21 AM ENVIRONMENTAL HEALTH SAFETY ENGINEER us Florinda Haile NP LAB BLOOD ORDERABLES Final R esult [facility] [id number] Department [place] [address] * (ABNORMAL) Basic metabolic panel (07/23/2023 5:23 AM ENVIRONMENTAL HEALTH SAFETY ENGINEER) Sodium 139 135 - 145 mmol/L [facility] Potassium, pl 3.5 3.3 - 4.9 mmol/L [facility] Chloride 98 97 - 110 mmol/L [facility] CO2 30 22 - 32 mmol/L [facility] Anion gap 11 2 - 15 mmol/L [facility] BUN 36(H) 6 - 25 mg/dL [facility] Creatinine 1.46(H) 0.60 - 1.10 mg/dL [facility] Glucose 93 70 - 199 mg/dL [facility] Comment: Interpretive Data Fasting glucose >/= [...] 2022. Calcium 9.2 8.5 - 10.3 mg/dL [facility] Blood 07/23/2023 5:23 AM ENVIRONMENTAL HEALTH SAFETY ENGINEER 07/23/2023 6:23 AM ENVIRONMENTAL HEALTH SAFETY ENGINEER Florinda Haile NP LAB BLOOD ORDERABLES Final R esult [facility] [id number] Department [place] [address] * (ABNORMAL) CBC with auto differential (07/23/2023 5:23 AM ENVIRONMENTAL HEALTH SAFETY ENGINEER) Pathologist [facility] WBC 6.5 3.8 - 9.9 K/cumm [facility] Hgb 7.6(L) 11.9 - 15.5 g/dL [facility] Hct 26.6(L) 35.6 - 45.5 % [facility] Plt 334 150 - 400 K/cumm [facility] MPV 9.4 9.1 - 12.3 fL [facility] RBC 3.62(L) 3.90 - 5.20 M/cumm [facility] MCV 73.5(L) 81.3 - 96.4 fL [facility] MCH 21.0(L) 27.1 - 33.3 pg [facility] MCHC 28.6(L) 32.3 - 35.7 g/dL [facility] RDW CV 17.4(H) 11.1 - 14.9 % [facility] RDW SD 46.1 35.7 - 48.1 fL [facility] NRBC abs 0.00 0.00 - 0.01 K/cumm [facility] Blood 07/23/2023 5:23 AM ENVIRONMENTAL HEALTH SAFETY ENGINEER 07/23/2023 6:21 AM ENVIRONMENTAL HEALTH SAFETY ENGINEER us Florinda Haile NP LAB BLOOD ORDERABLES Final R esult Performing Organization Address [facility]/ZIP Co de Phone Number [facility] [address] [place] [address] * (ABNORMAL) Troponin T high-sensitivity 6-hour (07/22/2023 7:39 PM ENVIRONMENTAL HEALTH SAFETY ENGINEER) Trop T hs 26(H) <=14 ng/L [facility] Comment: Interpretive Data For further hscTnT resources including the diagnostic algorithm and an aid in interpretation, copy and paste this link: https://nrl.testcatalog.org/show/hsTrop Current Interpretive Data last revised 2020. Trop T hs delta See Comment ng/L [facility] Comment:Inappropriate collec tion time to report a delta. Trop T hs pct delta See Comment % [facility] Comment:Inappropriate collec tion time to report a delta. Trop T hs interp See Comment [facility] Comment:Inappropriate collec tion time to report a delta. Blood 07/22/2023 7:39 PM ENVIRONMENTAL HEALTH SAFETY ENGINEER 07/22/2023 8:08 PM ENVIRONMENTAL HEALTH SAFETY ENGINEER Mich Sheppard MD LAB BLOOD ORDERABLES Fi nal Result Performing Organization Address [facility]/ZIP Co de Phone Number [facility] [address] [email or web address] [address] * (ABNORMAL) Troponin T high-sensitivity 4-hour (07/22/2023 2:29 PM ENVIRONMENTAL HEALTH SAFETY ENGINEER) Trop T hs 21(H) <=14 ng/L [facility] Comment: Interpretive Data For further hscTnT resources including the diagnostic algorithm and an aid in interpretation, copy and paste this link: https://nrl.testcatalog.org/show/hsTrop Current Interpretive Data last revised 2020. Trop T hs delta -22(C) ng/L [facility] Comment:Critical Result call ed to and read back by Persistent abnormal result, DATE: 2023-07-22 15:04:02 BY: Jenny Bernal Trop T hs interp Significa nt(C) [facility] Comment:Critical Result call ed to and read back by Persistent abnormal result, DATE: 2023-07-22 15:04:02 BY: Jenny Bernal Blood 07/22/2023 2:29 PM ENVIRONMENTAL HEALTH SAFETY ENGINEER 07/22/2023 2:34 PM ENVIRONMENTAL HEALTH SAFETY ENGINEER us Mich Sheppard MD LAB BLOOD ORDERABLES Fi nal Result [facility] [id number] Department [place] [address] * Lipid panel (07/22/2023 12:41 PM ENVIRONMENTAL HEALTH SAFETY ENGINEER) Cholesterol 128 30 - 199 mg/dL [facility] Comment: Interpretive Data Ages < or = [...] Data was last revised on 2018. Triglycerides 96 <=149 mg/dL [facility] Comment: Interpretive Data Ages < or = [...] Data was last revised on 2018. HDL 45 >=40 mg/dL [facility] Comment: Interpretive Data Ages < or = [...] was last revised on 2018. LDL, calculated 64 <=129 mg/dL [facility] Comment: Interpretive Data Ages < or = 19 years ??Acceptable: ? <110 mg/dL ??Borderline high: ??110-129 mg/dL ??High: ?>or= 130 mg/dL Ages > or = 20 years ??Optimal: ? <100 mg/dL ??Near optimal: ?100-129 mg/dL ??Borderline high: ?? 130-159 mg/dL ??High: ?>160 mg/dL Literature References: 1. Expert Panel on Integrated Guidelines for Cardiovascular Health and Risk Reduction in Children and Adolescents. Pediatrics 2011;128:S213 2. NCEP Expert Panel. Circulation 2004;110:227 Current Interpretive Data was last revised on 2018. Non-HDL Cholesterol 83 mg/dL [facility] Comment: Interpretive Data Ages < or = [...] was last revised on 2018. Chol/HDL ratio 3 [facility] Blood 07/22/2023 12:4 1 PM ENVIRONMENTAL HEALTH SAFETY ENGINEER 07/22/2023 1:01 PM ENVIRONMENTAL HEALTH SAFETY ENGINEER Narrative [facility] - 07/22/2023 1:55 PM ENVIRONMENTAL HEALTH SAFETY ENGINEER This lipid panel was automatically ordered due to a significant change in Troponin. The dietary status of the patient at the collection time should be correlated with the lipid results. us Mich Sheppard MD LAB BLOOD ORDERABLES Fi nal Result [facility] [id number] Department [place] [address] * (ABNORMAL) Troponin T high-sensitivity 2-hour (07/22/2023 12:41 PM ENVIRONMENTAL HEALTH SAFETY ENGINEER) Trop T hs 20(H) <=14 ng/L [facility] Comment: Interpretive Data For further hscTnT resources including the diagnostic algorithm and an aid in interpretation, copy and paste this link: https://nrl.testcatalog.org/show/hsTrop Current Interpretive Data last revised 2020. Trop T hs delta -23(C) ng/L [facility] Comment:Critical Result call ed to and read back by Yasmine Rivas, DATE: 2023-07-22 13:33:09 BY: Jenny Bernal Trop T hs interp Significa nt(C) [facility] Comment:Critical Result call ed to and read back by Yasmine Rivas, DATE: 2023-07-22 13:33:09 BY: Jenny Bernal Blood 07/22/2023 12:4 1 PM ENVIRONMENTAL HEALTH SAFETY ENGINEER 07/22/2023 1:01 PM ENVIRONMENTAL HEALTH SAFETY ENGINEER Mich Sheppard MD LAB BLOOD ORDERABLES Fi nal Result [facility] [id number] Department [place] [address] * XR Chest 1 Vw Portable (07/22/2023 11:10 AM ENVIRONMENTAL HEALTH SAFETY ENGINEER) Anatomical Region Laterality Modality Body, Chest N/A Computed Radiogr aphy 07/22/2023 2:20 PM ENVIRONMENTAL HEALTH SAFETY ENGINEER Impressions 07/22/2023 2:20 PM ENVIRONMENTAL HEALTH SAFETY ENGINEER Bilateral hilar enlargement.. Electronically signed by: Alejandro Singh M.D. Narrative 07/22/2023 2:20 PM ENVIRONMENTAL HEALTH SAFETY ENGINEER EXAMINATION: XR CHEST 1 VIEW DATE: 07/22/2023 10:35 AM INDICATION: Short of breath COMPARISON: None. FINDINGS: No pneumothorax, pleural effusion, or pulmonary consolidation is demonstrated. The cardiomediastinal silhouette is unremarkable except for hilar gaurav and/or other process causing enlargement of the bj.. No acute osseous abnormality demonstrated. ??The bj are prominent bilaterally this could be due to adenopathy dilated pulmonary arteries for example pulmonary hypertension or combination of the both Procedure Note Alejandro Singh MD - 07/22/2023 EXAMINATION: XR CHEST 1 VIEW DATE: 07/22/2023 10:35 AM INDICATION: Short of breath COMPARISON: None. FINDINGS: No pneumothorax, pleural effusion, or pulmonary consolidation is demonstrated. The cardiomediastinal silhouette is unremarkable except for hilar gaurav and/or other process causing enlargement of the bj.. No acute osseous abnormality demonstrated. The bj are prominent bilaterally this could be due to adenopathy dilated pulmonary arteries for example pulmonary hypertension or combination of the both IMPRESSION: Bilateral hilar enlargement.. Electronically signed by: Alejandro Singh M.D. Jason BRUCE IMG XR PROCEDURES Final Re sult * eGFR (07/22/2023 10:47 AM ENVIRONMENTAL HEALTH SAFETY ENGINEER) eGFR 38 mL/min/1. 73 m2 [facility] Comment: Interpretive Data Reference Interval Normal ?>/= [...] interpretive data was last reviewed 2021. Blood 07/22/2023 10:4 7 AM ENVIRONMENTAL HEALTH SAFETY ENGINEER 07/22/2023 10:55 AM ENVIRONMENTAL HEALTH SAFETY ENGINEER us Mich Sheppard MD LAB BLOOD ORDERABLES Fi nal Result [facility] [id number] Department [place] [address] * (ABNORMAL) Differential, auto (07/22/2023 10:47 AM ENVIRONMENTAL HEALTH SAFETY ENGINEER) Neutrophil abs 7.0(H) 1.5 - 6.5 K/cumm [facility] Imm gran abs 0.1 0.0 - 0.1 K/cumm [facility] Lymphocyte abs 0.8 0.8 - 3.3 K/cumm [facility] Monocyte abs 0.6 0.2 - 0.8 K/cumm [facility] Eosinophil abs 0.4 0.0 - 0.5 K/cumm [facility] Basophil abs 0.0 0.0 - 0.1 K/cumm [facility] Neutrophil pct 78.9 % [facility] Comment: Interpretive Data Percent cell count reference ranges are not reported, since discordance with absolute values may lead to misinterpretation of CBC data. Current Interpretive Data was last revised on 2017. Imm gran pct 1.0 % [facility] Comment: Interpretive Data Percent cell count reference ranges are not reported, since discordance with absolute values may lead to misinterpretation of CBC data. Current Interpretive Data was last revised on 2017. Lymphocyte pct 8.8 % [facility] Comment: Interpretive Data Percent cell count reference ranges are not reported, since discordance with absolute values may lead to misinterpretation of CBC data. Current Interpretive Data was last revised on 2017. Monocyte pct 6.6 % [facility] Comment: Interpretive Data Percent cell count reference ranges are not reported, since discordance with absolute values may lead to misinterpretation of CBC data. Current Interpretive Data was last revised on 2017. Eosinophil pct 4.2 % [facility] Comment: Interpretive Data Percent cell count reference ranges are not reported, since discordance with absolute values may lead to misinterpretation of CBC data. Current Interpretive Data was last revised on 2017. Basophil pct 0.5 % [facility] Comment: Interpretive Data Percent cell count reference ranges are not reported, since discordance with absolute values may lead to misinterpretation of CBC data. Current Interpretive Data was last revised on 2017. Blood 07/22/2023 10:4 7 AM ENVIRONMENTAL HEALTH SAFETY ENGINEER 07/22/2023 10:54 AM ENVIRONMENTAL HEALTH SAFETY ENGINEER us Mich Sheppard MD LAB BLOOD ORDERABLES Fi nal Result [facility] [id number] Department [place] [address] * (ABNORMAL) Pro B-type natriuretic peptide (07/22/2023 10:47 AM ENVIRONMENTAL HEALTH SAFETY ENGINEER) NT-proBNP 6,674(H) <=450 pg/mL [facility] Comment: Interpretive Comments: A. Dyspnea in Acute [...] Interpretive Data Last Revised Date: 2018. Blood 07/22/2023 10:4 7 AM ENVIRONMENTAL HEALTH SAFETY ENGINEER 07/22/2023 10:55 AM ENVIRONMENTAL HEALTH SAFETY ENGINEER Mich Sheppard MD LAB BLOOD ORDERABLES [facility] Result Performing Organization Address [facility] de Phone Number [facility] [address] [place] [address] * (ABNORMAL) aPTT (07/22/2023 10:47 AM ENVIRONMENTAL HEALTH SAFETY ENGINEER) Pathologist [facility] aPTT 40(H) 28 - 38 sec [facility] Comment: Interpretive Data Heparin therapeutic range: 66.0 - 100.0 seconds. Range based on correlation with therapeutic heparin activity range of 0.3 - 0.7 Units/mL. Current interpretive data was last revised on 2023. Blood 07/22/2023 10:4 7 AM ENVIRONMENTAL HEALTH SAFETY ENGINEER 07/22/2023 10:54 AM ENVIRONMENTAL HEALTH SAFETY ENGINEER Mich Sheppard MD LAB BLOOD ORDERABLES nal Result Performing Organization Address [facility] de Phone Number [facility] [address] [employer] [place], [place] [id number] * (ABNORMAL) Troponin T high-sensitivity series (baseline, 2hr, 4hr, 6hr) (07/22/2023 10:47 AM ENVIRONMENTAL HEALTH SAFETY ENGINEER) Pathologist [facility] Trop T hs 43(H) <=14 ng/L [facility] Comment: Interpretive Data For further hscTnT resources including the diagnostic algorithm and an aid in interpretation, copy and paste this link: https://nrl.testcatalog.org/show/hsTrop Current Interpretive Data last revised 2020. Blood 07/22/2023 10:4 7 AM ENVIRONMENTAL HEALTH SAFETY ENGINEER 07/22/2023 10:55 AM ENVIRONMENTAL HEALTH SAFETY ENGINEER us Mich Sheppard MD LAB BLOOD ORDERABLES Fi nal Result Performing Organization Address City/[facility]/ZIP Co de Phone Number [facility] [address] Department [place] [address] * (ABNORMAL) CBC with auto differential (07/22/2023 10:47 AM ENVIRONMENTAL HEALTH SAFETY ENGINEER) [facility] WBC 8.9 3.8 - 9.9 K/cumm [facility] Hgb 8.2(L) 11.9 - 15.5 g/dL [facility] Hct 29.2(L) 35.6 - 45.5 % [facility] Plt 378 150 - 400 K/cumm [facility] MPV 9.4 9.1 - 12.3 fL [facility] RBC 3.91 3.90 - 5.20 M/cumm [facility] MCV 74.7(L) 81.3 - 96.4 fL [facility] MCH 21.0(L) 27.1 - 33.3 pg [facility] MCHC 28.1(L) 32.3 - 35.7 g/dL [facility] RDW CV 17.3(H) 11.1 - 14.9 % [facility] RDW SD 46.5 35.7 - 48.1 fL [facility] NRBC abs 0.00 0.00 - 0.01 K/cumm [facility] Blood 07/22/2023 10:4 7 AM ENVIRONMENTAL HEALTH SAFETY ENGINEER 07/22/2023 10:54 AM ENVIRONMENTAL HEALTH SAFETY ENGINEER Mich Sheppard MD LAB BLOOD ORDERABLES Fi nal Result [facility] [address] Department [place] [address] * (ABNORMAL) Comprehensive metabolic panel (07/22/2023 10:47 AM ENVIRONMENTAL HEALTH SAFETY ENGINEER) Sodium 139 135 - 145 mmol/L [facility] Potassium, pl 4.5 3.3 - 4.9 mmol/L [facility] Chloride 99 97 - 110 mmol/L [facility] CO2 28 22 - 32 mmol/L [facility] Anion gap 12 2 - 15 mmol/L [facility] BUN 33(H) 6 - 25 mg/dL [facility] Creatinine 1.37(H) 0.60 - 1.10 mg/dL [facility] Glucose 120 70 - 199 mg/dL [facility] Comment: [...] Calcium 9.2 8.5 - 10.3 mg/dL [facility] Bilirubin, total 0.4 0.1 - 1.2 mg/dL [facility] Protein, pl 6.9 6.5 - 8.5 g/dL [facility] Albumin 3.7 3.5 - 5.0 g/dL [facility] Alk phos 156(H) 40 - 130 Units/L [facility] ALT 17 7 - 45 Units/L [facility] AST 18 10 - 45 Units/L [facility] Blood 07/22/2023 10:4 7 AM ENVIRONMENTAL HEALTH SAFETY ENGINEER 07/22/2023 10:55 AM ENVIRONMENTAL HEALTH SAFETY ENGINEER us Mich Sheppard MD LAB BLOOD ORDERABLES Fi nal Result [facility] [id number] [place] [address] * ECG 12 lead (07/22/2023 10:31 AM ENVIRONMENTAL HEALTH SAFETY ENGINEER) 07/22/2023 10:3 1 AM ENVIRONMENTAL HEALTH SAFETY ENGINEER Narrative [facility] - 07/24/2023 10:31 AM ENVIRONMENTAL HEALTH SAFETY ENGINEER Vent Rate: 73 bpm RR Interval: 811 msec UT Interval: 0 msec QRS Duration: 73 msec QT Interval: 387 msec QTC Interval: 414 msec P-R-T [place]: 0 - 63 - 19 degrees IMPRESSION: ATRIAL FIBRILLATION LOW QRS VOLTAGE IN PRECORDIAL LEADS Electronically Signed By: Collin Rich MD, [facility] WITH [facility] us Mich Sheppard MD ECG ORDERABLES Final R esult [facility] documented in this encounter Visit Diagnoses Diagnosis Shortness of breath Acute systolic congestive heart failure (CMS/HCC) (HCC) Acute congestive heart failure, unspecified heart failure type (HCC) Shortness of breath documented in this encounter Admitting Diagnoses Diagnosis Acute congestive heart failure, unspecified heart failure type (HCC) Shortness of breath documented in this encounter Administered Medications Inactive Administered Medications - up to 3 most recent administrations Medication Order MAR Action Action Date Dose Rate Site acetaminophen (TYLENOL) tablet 650 mg 650 mg, oral, Every 6 hours PRN, headaches, fever, Starting on 07/22/23 at 1443 Given 07/24/2023 9:13 PM ENVIRONMENTAL HEALTH SAFETY ENGINEER 650 mg Given 07/24/2023 8:58 AM ENVIRONMENTAL HEALTH SAFETY ENGINEER 650 mg Given 07/23/2023 9:35 PM ENVIRONMENTAL HEALTH SAFETY ENGINEER 650 mg al & mag hydroxide xvkbbemsijg-agaxaznswxvgfvc-anogvcapx-nystat in (MAGIC MOUTHWASH) oral suspension 1-1-1-1 15 mL 15 mL, swish & spit, Every 4 hours PRN, mucositis, Starting on 07/24/23 at 1016 Given 07/24/2023 3:08 PM ENVIRONMENTAL HEALTH SAFETY ENGINEER 15 mL albuterol HFA (PROVENTIL HFA,VENTOLIN HFA,PROAIR HFA) 90 mcg/actuation inhaler 2 puff 2 puff, inhalation, Every 6 hours PRN (supervisor respiratory), wheezing, shortness of breath, Starting on 07/22/23 at 1453 carvediloL (COREG) tablet 6.25 mg 6.25 mg, oral, 2 times daily with meals (bkfst, dinner), First dose on 07/22/23 at 1800 Given 07/25/2023 8:53 AM ENVIRONMENTAL HEALTH SAFETY ENGINEER 6.25 mg Given 07/24/2023 5:21 PM ENVIRONMENTAL HEALTH SAFETY ENGINEER 6.25 mg Given 07/24/2023 8:44 AM ENVIRONMENTAL HEALTH SAFETY ENGINEER 6.25 mg cetirizine (ZyrTEC) tablet 10 mg 10 mg, oral, Nightly, First dose on 07/22/23 at 2100 Given 07/24/2023 9:13 PM ENVIRONMENTAL HEALTH SAFETY ENGINEER 10 mg Given 07/23/2023 9:31 PM ENVIRONMENTAL HEALTH SAFETY ENGINEER 10 mg Given 07/22/2023 9:24 PM ENVIRONMENTAL HEALTH SAFETY ENGINEER 10 mg cholecalciferol (VITAMIN D-3) tablet 2,000 Units 2,000 Units, oral, Daily, First dose on 07/22/23 at 1442, Each tablet contains 1,000 units (25 mcg) of cholecalciferol. Given 07/25/2023 8:52 AM ENVIRONMENTAL HEALTH SAFETY ENGINEER 2,000 Units Given 07/24/2023 8:44 AM ENVIRONMENTAL HEALTH SAFETY ENGINEER 2,000 Units Given 07/23/2023 8:30 AM ENVIRONMENTAL HEALTH SAFETY ENGINEER 2,000 Units empagliflozin (JARDIANCE) tablet 10 mg 10 mg, oral, Daily, First dose on 07/22/23 at 1442, I /authorizing provider attest that the patient meets the approved [facility] Use Criteria: Yes, Approving Provider: ANKUR Pollock, Indications: Heart FailureIndications:Heart Failure Given 07/25/2023 8:54 AM ENVIRONMENTAL HEALTH SAFETY ENGINEER 10 mg Given 07/24/2023 8:44 AM ENVIRONMENTAL HEALTH SAFETY ENGINEER 10 mg Given 07/23/2023 8:30 AM ENVIRONMENTAL HEALTH SAFETY ENGINEER 10 mg fluticasone furoate-vilanteroL (BREO ELLIPTA) 100-25 mcg/dose inhaler 1 puff 1 puff, inhalation, Daily (supervisor respiratory), First dose on 07/22/23 at 1442 Given 07/24/2023 7:58 PM ENVIRONMENTAL HEALTH SAFETY ENGINEER 1 puff Given 07/23/2023 10:42 AM ENVIRONMENTAL HEALTH SAFETY ENGINEER 1 puff furosemide (LASIX) 10 mg/mL injection 40 mg 40 mg, intravenous, Once, On 07/22/23 at 1205, For 1 dose, For IV push: administer doses < 160 mg at a rate of 20 -40 mg/min. Doses >/= 160 mg should be administered no faster than 4 mg/min. Room temperature only Given 07/22/2023 12: 42 PM ENVIRONMENTAL HEALTH SAFETY ENGINEER 40 mg furosemide (LASIX) 10 mg/mL injection 40 mg 40 mg, intravenous, Once, On 07/22/23 at 1348, For 1 dose, For IV push: administer doses < 160 mg at a rate of 20 -40 mg/min. Doses >/= 160 mg should be administered no faster than 4 mg/min. Room temperature only Given 07/22/2023 2:3 5 PM ENVIRONMENTAL HEALTH SAFETY ENGINEER 40 mg furosemide (LASIX) 10 mg/mL injection 40 mg 40 mg, intravenous, Every 12 hours scheduled, First dose on 07/22/23 at 1442, For IV push: administer doses < 160 mg at a rate of 20 -40 mg/min. Doses >/= 160 mg should be administered no faster than 4 mg/min. Room temperature only Given 07/24/2023 8:44 AM ENVIRONMENTAL HEALTH SAFETY ENGINEER 40 mg Given 07/23/2023 9:31 PM ENVIRONMENTAL HEALTH SAFETY ENGINEER 40 mg Given 07/23/2023 8:30 AM ENVIRONMENTAL HEALTH SAFETY ENGINEER 40 mg furosemide (LASIX) 10 mg/mL injection 40 mg 40 mg, intravenous, 2 times daily (for diuretics), First dose (after last modification) on Mon07/24/23 at 1600, For IV push: administer doses < 160 mg at a rate of 20 -40 mg/min. Doses >/= 160 mg should be administered no faster than 4 mg/min. Room temperature only Given 07/25/2023 8:54 AM ENVIRONMENTAL HEALTH SAFETY ENGINEER 40 mg Given 07/24/2023 4:38 PM ENVIRONMENTAL HEALTH SAFETY ENGINEER 40 mg furosemide (LASIX) tablet 40 mg 40 mg, oral, 2 times daily (for diuretics), First dose on Mon07/25/23 at 1600 ipratropium-albuteroL (DUO-NEB) 0.5-2.5 mg/3 mL nebulizer solution 3 mL 3 mL, nebulization, Once (supervisor respiratory), On 07/22/23 at 1045, For 1 dose, Indications: COPD ExacerbationIndications:COPD Exacerbation Given 07/22/2023 10:44 AM ENVIRONMENTAL HEALTH SAFETY ENGINEER 3 mL iron dextran complex (INFED) 25 mg in sodium chloride 0.9% 50 mL IVPB 25 mg, intravenous, at 202 mL/hr, Administer over 15 Minutes, Once, On 07/23/23 at 1200, For 1 dose, Nursing to contact pharmacy to request iron dextran infusion 10 minutes after test dose has been successfully administered. Proceed to remainder of dose if no reaction to test dose after 10 minutes., Indications: Iron Deficiency AnemiaIndications:Iron Deficiency Anemia New Bag 07/23/2023 1:46 PM ENVIRONMENTAL HEALTH SAFETY ENGINEER 25 mg 202 mL/hr iron dextran complex (INFED) 975 mg in sodium chloride 0.9% 250 mL IVPB 975 mg, intravenous, at 359.3 mL/hr, Administer over 45 Minutes, Once, On 07/23/23 at 1200, For 1 dose, Indications: Iron Deficiency AnemiaIndications:Iron Deficiency Anemia New Bag 07/23/2023 3:52 PM ENVIRONMENTAL HEALTH SAFETY ENGINEER 975 mg 359.3 mL/hr metOLazone (ZAROXOLYN) tablet 5 mg 5 mg, oral, Daily, First dose on 07/22/23 at 1442, Indications: Peripheral Edema due to Chronic Heart FailureIndications:Peripheral Edema due to Chronic Heart Failure Given 07/25/2023 8:52 AM ENVIRONMENTAL HEALTH SAFETY ENGINEER 5 mg Given 07/24/2023 8:44 AM ENVIRONMENTAL HEALTH SAFETY ENGINEER 5 mg Given 07/23/2023 8:30 AM ENVIRONMENTAL HEALTH SAFETY ENGINEER 5 mg ondansetron (ZOFRAN) injection 4 mg 4 mg, intravenous, Administer over 2 Minutes, Every 6 hours PRN, nausea, vomiting, Starting on 07/22/23 at 1443 Given 07/24/2023 10:18 AM ENVIRONMENTAL HEALTH SAFETY ENGINEER [address] (PROTONIX) extended release tablet 40 mg 40 mg, oral, Daily, First dose on 07/22/23 at 1442, Do not crush, chew, cut, dissolve, open or otherwise manipulate tablet/capsule., Indications: Treatment of Non-Bleeding Gastric DisorderIndications:Treatment of Non-Bleeding Gastric Disorder Given 07/25/2023 8:52 AM ENVIRONMENTAL HEALTH SAFETY ENGINEER 40 mg Given 07/24/2023 8:44 AM ENVIRONMENTAL HEALTH SAFETY ENGINEER 40 mg Given 07/23/2023 8:30 AM ENVIRONMENTAL HEALTH SAFETY ENGINEER 40 mg polyethylene glycol (MIRALAX) packet 17 g 17 g, oral, Daily PRN, constipation, Starting on 07/22/23 at 1441, Indications: constipationIndications:constipation Given 07/24/2023 8:58 AM ENVIRONMENTAL HEALTH SAFETY ENGINEER 17 g potassium chloride ER (KLOR-CON) extended release tablet 40 mEq 40 mEq, oral, 2 times daily, First dose on 07/22/23 at 1442, Do not crush, chew, cut, dissolve, open or otherwise manipulate tablet/capsule. Given 07/25/2023 8:52 AM ENVIRONMENTAL HEALTH SAFETY ENGINEER 40 mEq Given 07/24/2023 4:38 PM ENVIRONMENTAL HEALTH SAFETY ENGINEER 40 mEq Given 07/24/2023 8:44 AM ENVIRONMENTAL HEALTH SAFETY ENGINEER 40 mEq pramipexole (MIRAPEX) tablet 0.5 mg 0.5 mg, oral, 2 times daily, First dose on 07/22/23 at 1442, Indications: Idiopathic Parkinsonism, Restless Legs SyndromeIndications:Idiopathic Parkinsonism,Restless Legs Syndrome Given 07/25/2023 11:42 AM ENVIRONMENTAL HEALTH SAFETY ENGINEER 0.5 mg Given 07/24/2023 9:13 PM ENVIRONMENTAL HEALTH SAFETY ENGINEER 0.5 mg Given 07/24/2023 3:08 PM ENVIRONMENTAL HEALTH SAFETY ENGINEER 0.5 mg propranoloL (INDERAL) tablet 20 mg 20 mg, oral, 2 times daily PRN, Tremor, Starting on 07/22/23 at 1441 Given 07/24/2023 5:21 PM ENVIRONMENTAL HEALTH SAFETY ENGINEER 20 mg ramelteon (ROZEREM) tablet 8 mg 8 mg, oral, Nightly PRN, sleep, Starting on Mon07/23/23 at 2017, Indications: Sleep-Onset InsomniaIndications:Sleep-Onset Insomnia Given 07/24/2023 9:13 PM ENVIRONMENTAL HEALTH SAFETY ENGINEER 8 m g Given 07/23/2023 9:31 PM ENVIRONMENTAL HEALTH SAFETY ENGINEER 8 mg rivaroxaban (XARELTO) tablet 15 mg 15 mg, oral, Daily, First dose (after last modification) on 07/24/23 at 0900, Nurse to discontinue heparin infusion order and associated bolus at first administration of rivaroxaban using 'order condition met' order source. If patient is eating, administer doses of 15 mg or greater with food. If patient is not eating, still administer dose unless instructed differently by provider. , Indications: atrial fibrillationIndications:atrial fibrillation Given 07/25/2023 8:52 AM ENVIRONMENTAL HEALTH SAFETY ENGINEER 15 mg Given 07/24/2023 8:44 AM ENVIRONMENTAL HEALTH SAFETY ENGINEER 15 mg rivaroxaban (XARELTO) tablet 20 mg 20 mg, oral, Daily, First dose on 07/22/23 at 1442, Nurse to discontinue heparin infusion order and associated bolus at first administration of rivaroxaban using 'order condition met' order source. If patient is eating, administer doses of 15 mg or greater with food. If patient is not eating, still administer dose unless instructed differently by provider. , Indications: atrial fibrillationIndications:atrial fibrillation Given 07/23/2023 8:30 AM ENVIRONMENTAL HEALTH SAFETY ENGINEER 20 mg spironolactone (ALDACTONE) tablet 25 mg 25 mg, oral, Daily, First dose on 07/23/23 at 1115 Given 07/25/2023 8:52 AM ENVIRONMENTAL HEALTH SAFETY ENGINEER 25 mg Given 07/24/2023 8:44 AM ENVIRONMENTAL HEALTH SAFETY ENGINEER 25 mg Given 07/23/2023 12:13 PM ENVIRONMENTAL HEALTH SAFETY ENGINEER 25 mg documented in this encounter Discontinued Medications Medication Sig Discontinue Reason Start Date End Da te spironolactone (ALDACTONE) 25 mg tablet Take 1 tablet (25 mg total) by mouth daily 07/19/2023 07/22/2023 felodipine (PLENDIL) 5 mg 24 hr tablet Take 1 tablet (5 mg total) by mouth daily Stop Taking at Discharge 07/13/2023 07/25/2023 documented as of this encounter Active and Recently Administered Medications Times are shown in ENVIRONMENTAL HEALTH SAFETY ENGINEER. Scheduled Medication Order 07/23/2023 07/24/2023 07/25/2023 carvediloL (COREG) tablet 6.25 mg 6.25 mg, oral, 2 times daily with meals (bkfst, dinner), First dose on 07/22/23 at 1800 0830 (Given - Provider: Chele Lam RN)1731 (Given - Provider: Chele Lam RN) 0844 (Given - Provider: Hannah Nava, XU)1721 (Given - Provider: Hannah Nava, XU) 0853 (Given - Provider: Melissa Johnson RN) cetirizine (ZyrTEC) tablet 10 mg 10 mg, oral, Nightly, First dose on 07/22/23 at 2100 2131 (Given - Provider: Jason Robles, XU) 2113 (Given - Provider: Jason Robles, RN) cholecalciferol (VITAMIN D-3) tablet 2,000 Units 2,000 Units, oral, Daily, First dose on 07/22/23 at 1442, Each tablet contains 1,000 units (25 mcg) of cholecalciferol. 0830 (Given - Provider: Chele Lam, RN) 0844 (Given - Provider: Hannah Nava, RN) 0852 (Given - Provider: Melissa Johnson, RN) empagliflozin (JARDIANCE) tablet 10 mg 10 mg, oral, Daily, First dose on 07/22/23 at 1442, I /authorizing provider attest that the patient meets the approved [facility] Use Criteria: Yes, Approving Provider: GEOVANNA Pollock-, Indications: Heart Failure 0830 (Given - Provider: Chele aLm, RN) 0844 (Given - Provider: Hannah Nava, RN) 0854 (Given - Provider: Melissa Johnson, RN) fluticasone furoate-vilanteroL (BREO ELLIPTA) 100-25 mcg/dose inhaler 1 puff 1 puff, inhalation, Daily (supervisor respiratory), First dose on 07/22/23 at 1442 1042 (Given - Provider: Je Marshall, ETL SOFTWARE ENGINEER) 1840 (Not Given - Provider: Florinda Villarreal, ETL SOFTWARE ENGINEER - Reason: Patient not available)1958 (Given - Provider: Jason Robles, XU) 1058 (Not Given - Provider: Kayleigh Major, ETL SOFTWARE ENGINEER - Reason: Other) furosemide (LASIX) 10 mg/mL injection 40 mg (CANCELED) 40 mg, intravenous, Every 12 hours scheduled, First dose on 07/22/23 at 1442, For IV push: administer doses < 160 mg at a rate of 20 -40 mg/min. Doses >/= 160 mg should be administered no faster than 4 mg/min. Room temperature only 0830 (Given - Provider: Chele Lam, XU)2131 (Given - Provider: Jason Robles, RN) 0844 (Given - Provider: Hannah Nava, RN) furosemide (LASIX) 10 mg/mL injection 40 mg (CANCELED) 40 mg, intravenous, 2 times daily (for diuretics), First dose (after last modification) on Mon07/24/23 at 1600, For IV push: administer doses < 160 mg at a rate of 20 -40 mg/min. Doses >/= 160 mg should be administered no faster than 4 mg/min. Room temperature only 1638 (Given - Provider: Hannah Nava, RN) 0854 (Given - Provider: Melissa Johnson, RN) furosemide (LASIX) tablet 40 mg 40 mg, oral, 2 times daily (for diuretics), First dose on Mon07/25/23 at 1600 iron dextran complex (INFED) 25 mg in sodium chloride 0.9% 50 mL IVPB (COMPLETED) 25 mg, intravenous, at 202 mL/hr, Administer over 15 Minutes, Once, On Mon07/23/23 at 1200, For 1 dose, Nursing to contact pharmacy to request iron dextran infusion 10 minutes after test dose has been successfully administered. Proceed to remainder of dose if no reaction to test dose after 10 minutes., Indications: Iron Deficiency Anemia 1346 (New Bag - Provider: Chele Lam RN) iron dextran complex (INFED) 975 mg in sodium chloride 0.9% 250 mL IVPB (COMPLETED) 975 mg, intravenous, at 359.3 mL/hr, Administer over 45 Minutes, Once, On Mon07/23/23 at 1200, For 1 dose, Indications: Iron Deficiency Anemia 1552 (New Bag - Provider: Chele Lam, XU) metOLazone (ZAROXOLYN) tablet 5 mg 5 mg, oral, Daily, First dose on 07/22/23 at 1442, Indications: Peripheral Edema due to Chronic Heart Failure 0830 (Given - Provider: Chele Lam RN) 0844 (Given - Provider: Hannah Nava, RN) 0852 (Given - Provider: Melissa Johnson, RN) pantoprazole DR (PROTONIX) extended release tablet 40 mg 40 mg, oral, Daily, First dose on 07/22/23 at 1442, Do not crush, chew, cut, dissolve, open or otherwise manipulate tablet/capsule., Indications: Treatment of Non-Bleeding Gastric Disorder 0830 (Given - Provider: Chele Lam RN) 0844 (Given - Provider: Hannah Nava, XU) 0852 (Given - Provider: Melissa Johnson, RN) potassium chloride ER (KLOR-CON) extended release tablet 40 mEq 40 mEq, oral, 2 times daily, First dose on 07/22/23 at 1442, Do not crush, chew, cut, dissolve, open or otherwise manipulate tablet/capsule. 0830 (Given - Provider: Chele Lam, RN)2131 (Given - Provider: Jason Robles, RN) 0844 (Given - Provider: Hannah Nava, XU)1638 (Given - Provider: Hannah Nava RN) 0852 (Given - Provider: Melissa Johnson, RN) pramipexole (MIRAPEX) tablet 0.5 mg 0.5 mg, oral, 2 times daily, First dose on 07/22/23 at 1442, Indications: Idiopathic Parkinsonism, Restless Legs Syndrome 1201 (Given - Provider: Chele Lam, RN)1731 (Given - Provider: Chele Lam, RN) 1508 (Given - Provider: Hannah Nava, XU)2113 (Given - Provider: Jason Robles, RN) 1142 (Given - Provider: Melissa Johnson, RN) rivaroxaban (XARELTO) tablet 15 mg 15 mg, oral, Daily, First dose (after last modification) on Mon07/24/23 at 0900, Nurse to discontinue heparin infusion order and associated bolus at first administration of rivaroxaban using 'order condition met' order source. If patient is eating, administer doses of 15 mg or greater with food. If patient is not eating, still administer dose unless instructed differently by provider. , Indications: atrial fibrillation 0844 (Given - Provider: Hannah Nava RN) 0852 (Given - Provider: Melissa Johnson, RN) rivaroxaban (XARELTO) tablet 20 mg (CANCELED) 20 mg, oral, Daily, First dose on Mon07/22/23 at 1442, Nurse to discontinue heparin infusion order and associated bolus at first administration of rivaroxaban using 'order condition met' order source. If patient is eating, administer doses of 15 mg or greater with food. If patient is not eating, still administer dose unless instructed differently by provider. , Indications: atrial fibrillation 0830 (Given - Provider: Chele Lam RN) spironolactone (ALDACTONE) tablet 25 mg 25 mg, oral, Daily, First dose on Mon07/23/23 at 1115 1213 (Given - Provider: Chele Lam, RN) 0844 (Given - Provider: Hannah Nava RN) 0852 (Given - Provider: Melissa Johnson, RN) PRN Medication Order 07/23/2023 07/24/2023 07/25/2023 acetaminophen (TYLENOL) tablet 650 mg 650 mg, oral, Every 6 hours PRN, headaches, fever, Starting on 07/22/23 at 1443 1335 (Given - Provider: Chele Lam, XU)2134 (Given - Provider: Jason Robles, RN) 08 (Given - Provider: Hannah Nava RN)2112 (Given - Provider: Jason Robles RN) al & mag hydroxide simethicone-diphenhydramin o-oqviadjdk-adiqmeor (MAGIC MOUTHWASH) oral suspension 1-1-1-1 15 mL 15 mL, swish & spit, Every 4 hours PRN, mucositis, Starting on 07/24/23 at 1016 1508 (Given - Provider: Hannah Nava RN) albuterol HFA (PROVENTIL HFA,VENTOLIN HFA,PROAIR HFA) 90 mcg/actuation inhaler 2 puff 2 puff, inhalation, Every 6 hours PRN (supervisor respiratory), wheezing, shortness of breath, Starting on 07/22/23 at 1453 ondansetron (ZOFRAN) injection 4 mg 4 mg, intravenous, Administer over 2 Minutes, Every 6 hours PRN, nausea, vomiting, Starting on 07/22/23 at 1443 1018 (Given - Provider: Hannah Nava RN) polyethylene glycol (MIRALAX) packet 17 g 17 g, oral, Daily PRN, constipation, Starting on 07/22/23 at 1441, Indications: constipation 0858 (Given - Provider: Hannah Nava RN) propranoloL (INDERAL) tablet 20 mg 20 mg, oral, 2 times daily PRN, Tremor, Starting on 07/22/23 at 1441 1721 (Given - Provider: Hannah Nava, XU) ramelteon (ROZEREM) tablet 8 mg 8 mg, oral, Nightly PRN, sleep, Starting on 07/23/23 at 2017, Indications: Sleep-Onset Insomnia 2130 (Given - Provider: Jason Robles RN) 2112 (Given - Provider: Jason Robles RN) documented in this encounter Orders Medications Ordered That Alhaji ht Not Have Been Administered Count Last Ordered Date First Ordered Date furosemide (LASIX) tablet 40 mg 1 4 dexAMETHasone (DECADRON) inj ection solution 20 mg 1 07/23/2023 diphenhydrAMINE (BENADRYL) 5 0 mg/mL injection 50 mg 1 07/23/2023 EPINEPHrine 1 mg/mL preserva tive free injection 0.3 mg 1 07/23/2023 methylPREDNISolone sodium baumann ccinate (SOLU-medrol) preservative free injection 125 mg 1 07/23/2023 albuterol HFA (PROVENTIL HFA ,VENTOLIN HFA,PROAIR HFA) 90 mcg/actuation inhaler 2 puff 2 07/22/2023 amLODIPine (NORVASC) tablet 5 mg 1 07/22/19 24 spironolactone (ALDACTONE) tablet 25 mg 1 0 07/22/2023 Diet Count Last Ordered Date First Orde red Date ADULT DISCHARGE DIET 1 07/25/2023 Nursing Count Last Ordered Date First Orde red Date DISCHARGE ACTIVITY 1 07/25/2023 DISCHARGE CALL PROVIDER 3 07/25/2023 DISCHARGE INSTRUCTIONS 1 07/25/2023 FOLLOW UP WITH ESTABLISHED PROVIDER 1 07/25 MEASURE HEIGHT AND LENGTH 1 07/23/2023 VITAL SIGNS 1 07/23/2023 WEIGH PATIENT 1 07/23/2023 ACTIVITY 1 07/22/2023 MISCELLANEOUS NURSING CARE ORDER (SPECIFY) 1 07/22/2023 NOTIFY PROVIDER (SPECIFY) 1 07/22/2023 Consult Count Last Ordered Date First Orde red Date IP CONSULT TO CARDIOLOGY 1 07/22/2023 IP CONSULT TO SOCIAL WORK 1 07/22/2023 IV Count Last Ordered Date First Orde red Date SALINE LOCK IV 1 07/22/2023 Admission Count Last Ordered Date First Orde red Date ADMIT TO INPATIENT 1 07/22/2023 Discharge Count Last Ordered Date First Orde red Date DISCHARGE PATIENT 1 07/25/2023 CORE MEASURES Count Last Ordered Date First Ord ered Date REASON FOR NO VTE PROPHYLAXIS AT ADMISSION 1 07/22/2023 documented in this encounter Care Teams [employer] Vat Worker Relationship Specialty Start Date End Date Pepper Morgan MD PCP - General 09/16/16 Hank Garibay MD [address] [facility] [place] [facility] [address] [place] [address] Surgeon Orthopedic Surgery 03/27/17 Jacky Murry MD [address] [facility] [place] [facility] [address] [place] [address] Ophthalmology 03/27/17 Puma Mckenzie MD [address] [facility] [place] [facility] [address] [place] [address] Surgeon Orthopedic Surgery 07/11/19 Neha Jackson, PT Physical Therapist Physical Therapy 12/01/21 Stalin Arauz MD [address] [facility] [place] [address] Consulting Physician Cardiology 12/08/22 Tiffayn Rojas PA [address] [place] [address] Gastroenterology 12/30/22 Klaus Deshpande MD [address] [facility] [place] [address] Consulting Physician Neurology 06/13/23 documented as of this encounter
--- OUTSIDE RECORDS SUMMARY | 2024-06-18 18:50 | XMS_ITS | Encounter Summary ---
Author Organization [facility] Healthcare Address [address] [place] [address] Care Team Providers Care Sizing End Bander Name Role Phone Pepper Morgan MD Primary Care Provider + [phone] Hank Garibay MD Unavailable [phone] Jacky Murry MD Unavailable [phone] Puma Mckenzie MD Unavailable [phone] Neha Jackson PT Unavailable Unavailable Stalin Arauz MD Unavailable [phone] Tiffany Rojas Unavailable [phone] Klaus Deshpande MD Unavailable [phone] Encounter Details Date Type Department Care Team (Late st Contact Info) Description 07/25/2023 Telephone [place] Cheese Supervisor at [address] [place] [phone] Meryl Burgos MA Social History Tobacco Use Types Packs/Day Years Used Date Smoking Tobacco: Former Cigarettes 2 30 1 952 - 1981 Smokeless Tobacco: Never Alcohol Use Standard Drinks/Week Comments Not Currently 0 (1 standard drink = 0.6 oz pur e alcohol) [facility] Utilities Answer Date Recorded In the past 12 months has [employer], gas, oil, or water company threatened to [...] often do you attend chur ch or religion services? Never 07/24/2023 Do you belong to any clubs o r organizations such as tenriism groups, unions, fraternal or athletic groups, or [...] in a longterm (including now)? No 07/24/2023 Personal Safety Answer Date Recorded Have you ever been in or are you currently in a harmful physical or emotional relationship or is someone making you feel afraid or unsafe? Denies 07/22/2023 Comments No Sex and Gender Information Value Date Recorded Sex Assigned at Not on file Legal Sex Female 4:33 AM CLOTH DYER Gender Identity Not on file Sexual Orientation Not on file Occupation Industry Job Start Date Job End Date retired Not on file Not on file Not on file documented as of this encounter Miscellaneous Notes * Telephone Encounter - Meryl Burgos MA - 07/26/2023 9:52 AM CLOTH DYER Spoke with Marilyn pt's daughter. Notified her. H DYER * Telephone Encounter - Meryl Burgos MA - 07/25/2023 3:29 PM CLOTH DYER Marilyn Baires pt's daughter calling stating pt just got out of [facility] today and they changed her medications while there. She states they now have her taking Potassium Chlor ER 40 mg 1 tab BID and Spironolactone 25 mg daily. She wanted to double check with Eri/Dr Arauz to make sure you agree with these changes. She said she isn't even sure if they are changes but she wanted me to send a message making sure pt should be on these and that the dosages are correct for pt? Please advise. Marilyn's call back # H DYER documented in this encounter Plan of Treatment [...] on filedocumented in this encounter Care Teams Sizing End Bander Relationship Specialty Start Date End Date Pepper Morgan MD PCP - General 09/16/16 Hank Garibay MD [address] [facility] [address] [place] [address] Surgeon Orthopedic Surgery 03/27/17 Jacky Murry MD [address] [facility] [address] [place] [address] Ophthalmology 03/27/17 Puma Mckenzie MD [address] [facility] [address] [place] [address] Surgeon Orthopedic Surgery 07/11/19 Neha Jackson, PT Physical Therapist Physical Therapy 12/01/21 Stalin Arauz MD [address] [facility] [address] [place] [address] Consulting Physician Cardiology 12/08/22 Tiffany Rojas PA [address] [facility] [address] [place] [address] Gastroenterology 12/30/22 Klaus Deshpande MD [address] [facility] [address] [place] [address] Consulting Physician Neurology 06/13/23 documented as of this encounter
--- OUTSIDE RECORDS SUMMARY | 2024-06-18 18:50 | XMS_ITS | Encounter Summary ---
Author Organization [facility] Address [address] [place] [address] Care Team Providers Care Bellows Filler Name Role Phone Pepper Morgan MD Primary Care Provider + [phone] Hank Garibay MD Unavailable [phone] Jacky Murry MD Unavailable [phone] Puma Mckenzie MD Unavailable [phone] Neha Jackson PT Unavailable Unavailable Stalin Arauz MD Unavailable [phone] Tiffany Rojas Unavailable [phone] Klaus Deshpande MD Unavailable [phone] Reason for Referral * Sleep Medicine (Routine) - Closed Specialty Diagnoses / Procedures Referred By Contac t Referred To Contact Diagnoses Sleep disorder breathing Chronic heart failure with preserved ejection fraction (CMS/HCC) (HCC) Procedures Portable/Home Sleep Study Pepper Morgan MD [address] [place] [address] Phone: tel: fax: [address] [phone] Referral ID Status Reason Start Date Expiration Date Visits Re quested Visits Authorized [id number] Closed 07/21/2023 08/19/2024 1 1 OBIOLOGY LAB TECHNICIAN Encounter Details Date Type Department Care Team (Late st Contact Info) Description 07/20/2023 Telephone [facility] [address] [place] [phone] Pepper Morgan MD [address] [place] [address] Social History Tobacco Use Types Packs/Day Years Used Date Smoking Tobacco: Former Cigarettes 2 30 1 952 - 1981 Smokeless Tobacco: Never Alcohol Use Standard Drinks/Week Comments Not Currently 0 (1 standard drink = 0.6 oz pur e alcohol) Social Connection and Isolat ion Panel [NHANES] Answer Date Recorded In a typical week, how many times do you talk on the phone with family, friends, or neighbors? More than three times a week 12/29/2022 How often do you get togethe r with friends or relatives? Twice a week 12/29/2022 How often do you attend chur ch or yarsanism services? Never 12/29/2022 Do you belong to any clubs o r organizations such as cheondoism groups, unions, fraternal or athletic groups, or school groups? No 12/29/2022 How often do you attend meet ings of the clubs or organizations you belong to? Never 12/29/2022 Are you , , di vorced, , never , or living with a partner? 12/29/2022 AUDIT-C Answer Date Recorded Q1: How often [...] medical care, and heating? Not very hard 12/29/2022 PHQ-2 Answer Date Recorded PHQ-2 Total Score [...] medical appointments or from getting medications? No 12/17 In the past 12 months, has l ack of transportation kept you from meetings, work, or from getting things needed for daily living? No 12/29/2022 Housing Stability Vital Sign Answer Neville e Recorded In the last 12 months, was t here a time when you were not able to pay the mortgage or rent on time? No 12/29/2022 In the last 12 months, how many places have you lived? 1 12/29/2022 In the last 12 months, was t here a time when you did not have a steady place to sleep or slept in a fci (including now)? No 12/29/2022 Personal Safety Answer Date Recorded Have you ever been in or are you currently in a harmful physical or emotional relationship or is someone making you feel afraid or unsafe? Denies 07/22/2023 Comments No Sex and Gender Information Value Date Recorded Sex Assigned at Not on file Legal Sex Female 4:33 AM MICROBIOLOGY LAB TECHNICIAN Gender Identity Not on file Sexual Orientation Not on file Occupation Industry Job Start Date Job End Date retired Not on file Not on file Not on file documented as of this encounter Miscellaneous Notes * Telephone Encounter - Katlyn Lema - 07/21/2023 11:26 AM CST Order for home sleep study has been placed. Sleep lab will contact pt to set this up. Forwarding FYI OBIOLOGY LAB TECHNICIAN * Telephone Encounter - Milana Fuentes RN - 07/21/2023 8:42 AM CST Images from the original note were not included. This sleeping disorder is likely related to her DIASTOLIC HEART FAILURE. She really needs to have a sleep study: Best would be a in facility split night CPAP titration study However if she will NOT do that THEN set up a home sleep test w/ diagnosis = sleep disorder, insomnia, heart failure. Tell her Further medication prescription treatment can be considered after we get that information & know what may be safe to use. Until we get more information: have her try sleeping in her easy chair-- elevation of the head and upper body will take away sleep apnea related sleep disorder. This will be temporary, I understand that It is very bad for her posture and may make her have little swelling in her feet by the morning hours -- but -- at least she will be sleeping and that will be better for her brain her heart in therest of her body. Once we get this all figured out will have many more treatment options available.. Dr. Pepper Morgan Called and informed pt of the above message She verbalized understanding Pt states that she does not want to to a in hospital study She will do the home study TOADM:please schedule a at home sleep study Diagnosis sleep disorder, insomnia, and heart failure OBIOLOGY LAB TECHNICIAN * Telephone Encounter - Katy Lopes RN - 07/20/2023 1:59 PM MICROBIOLOGY LAB TECHNICIAN TOKMS: Called patient regarding sleep. She has been having trouble sleeping and is really tired every day. She said sleeps about 2-3 hours at night. Patient said this has been going on and on for a while and she would like to get a decent night's sleep. Patient said she did not think to talk about this at her recent visit with [facility]. She said she gets dizzy and feels out of it when she takes Gabapentin. She had tried taking it again last night. Notified her per her last message [facility] had d/c'd it at her last visit when patient toldher it was not helping. She voiced understanding and won't take it again. Patient asked if anything can be taken to help her sleep? Please advise OBIOLOGY LAB TECHNICIAN * Telephone Encounter - Katy Lopes RN - 07/20/2023 1:57 PM MICROBIOLOGY LAB TECHNICIAN Attempted to call patient several times and difficulty with phone staying connected. OBIOLOGY LAB TECHNICIAN * Telephone Encounter - Eri Owens - 07/20/2023 9:54 AM CST Pt states she is unable to sleep at night and wants to know if would call in something to help her sleep. [phone] patient DEJAH velázquez OBIOLOGY LAB TECHNICIAN documented in this encounter Plan of Treatment Scheduled Orders Name Type Priority Associated Diagnoses Orde r Schedule Portable/Home Sleep Study Sleep Center Routine Sleep disorder breathing Chronic heart failure with preserved ejection fraction (CMS/HCC) (HCC) 1 Occurrences starting 07/21/2023 until 07/21/2024 documented as of this encounter Goals Goal Patient Goal Type Associated Problems Recent Progress Patient-Stated? Author BH-Pain Behavioral Health Improving( 3:34 PM CDT) Domitila Gaston, XU Note: Patient will establish a comfort-function goal and identify the pain level that will allow the patient to perform desired activities and achieve an acceptable quality of life. documented as of this encounter Visit Diagnoses Diagnosis Sleep disorder breathing- Primary Other sleep disturbances Chronic heart failure with preserved ejection fraction (CMS/HCC) (HCC) documented in this encounter Care Teams Bellows Filler Relationship Specialty Start Date End Date Pepper Morgan MD PCP - General 09/16/16 Hank Garibay MD [address] [place] [address] [address] [place] [address] [address] Surgeon Orthopedic Surgery 03/27/17 Jacky Murry MD [address] [facility] [address] [place] [facility] [address] [place] [address] Ophthalmology 03/27/17 Puma Mckenzie MD [address] [facility] [address] [place] [facility] [address] [place] [address] Surgeon Orthopedic Surgery 07/11/19 Neha Jackson, PT Physical Therapist Physical Therapy 12/01/21 Stalin Arauz MD [address] [facility] [address] [place] [address] Consulting Physician Cardiology 12/08/22 Tiffany Rojas PA [address] [facility] [address] [place] [address] Gastroenterology 12/30/22 Klaus Deshpande MD [address] [facility] [address] [place] [address] Consulting Physician Neurology 06/13/23 documented as of this encounter
--- OUTSIDE RECORDS SUMMARY | 2024-06-18 18:50 | XMS_ITS | Encounter Summary ---
Author Organization [facility] Address [address] [place] [address] Care Team Providers Care Research & Analytics Manager Name Role Phone Pepper Morgan MD Primary Care Provider + [phone] Hank Garibay MD Unavailable [phone] Jacky Murry MD Unavailable [phone] Puma Mckenzie MD Unavailable [phone] Neha Jackson PT Unavailable Unavailable Stalin Arauz MD Unavailable [phone] Tiffany Rojas Unavailable [phone] Klaus Deshpande MD Unavailable [phone] Reason for Visit * Reason Comments OP Infusion * Episode Based Medications (Routine) - Closed Specialty Diagnoses / Procedures Referred By Contac t Referred To Contact Diagnoses Iron deficiency anemia, unspecified iron deficiency anemia type Pepper Morgan MD [address] [place] [address] Phone: tel: fax: [facility] [address] [facility] [address] [place] [address] Phone: tel: Referral ID Status Reason Start Date Expiration Date Visits Re quested Visits Authorized [id number] Closed 07/19/2023 08/17/2024 3 3 Encounter Details Date Type Department Care Team (Late st Contact Info) Description 08/03/2023 11:30 AM [facility] [address] [place] [phone] Iron deficiency anemia, unspecified iron deficiency anemia type (Primary Dx) Social History Tobacco Use Types Packs/Day Years Used Date Smoking Tobacco: Former Cigarettes 1981 Smokeless Tobacco: Never Alcohol Use Standard Drinks/Week Comments Not Currently 0 (1 standard drink = 0.6 oz pur e alcohol) [facility] Utilities Answer [...] on file Legal Sex Female 4:33 AM REGISTERED DENTAL ASSISTANT Gender Identity Not on file Sexual Orientation Not on file Occupation Industry Job Start Date Job End Date retired Not on file Not on file Not on file documented as of this encounter Last Filed Vital Signs Vital Sign Reading Time Taken Comments Blood Pressure 106/60 08/03/2023 11:18 AM REGISTERED DENTAL ASSISTANT Pulse 86 08/03/2023 11:18 AM REGISTERED DENTAL ASSISTANT Temperature 36.4 ??C (97.5 ??F) 08/03/2023 11:[address] Respiratory Rate 20 08/03/2023 11:18 AM REGISTERED DENTAL ASSISTANT Oxygen Saturation 100% 08/03/2023 11:18 AM REGISTERED DENTAL ASSISTANT Inhaled Oxygen Concentration - - Weight - - Height - - Body Mass Index - - documented in this encounter Nursing Notes * Hugh Parkinson RN - 08/03/2023 11:30 AM CST Patient presented to infusion center for venofer infusion. Vitals were taken and stable. All patient questions answered. IV was placed in right arm and showed brisk blood return and easy flush. Venofer was given per order and tolerated well by patient. IV was removed after reassessing for brisk blood return and easy flush. Patient stated she received her first dose of iron while in the hospital last week. Next appointment planned to be final infusion. AVS was printed and presented to patient who was discharged in stable condition. STERED DENTAL ASSISTANT documented in this encounter Plan of Treatment [...] as of this encounter Visit Diagnoses Diagnosis Iron deficiency anemia, unspecified iron deficiency anemia type- Primary documented in this encounter Administered Medications Inactive Administered Medications - up to 3 most recent administrations Medication Order MAR Action Action Date Dose Rate Site iron sucrose (VENOFER) 300 mg in sodium chloride 0.9% 250 mL IVPB 300 mg, intravenous, at 176.7 mL/hr, Administer over 90 Minutes, Once, On Katy 08/03/23 at 1200, For 1 doseIndications:Iron deficiency anemia, unspecified iron deficiency anemia type New Bag 08/03/2023 11:36 AM REGISTERED DENTAL ASSISTANT 300 mg 176.7 mL/hr sodium chloride 0.9% flush 10 mL 10 mL, intravenous, As needed, line care, Starting on Katy 08/03/23 at 1123, Flush pre and post IV catheter use.Indications:Iron deficiency anemia, unspecified iron deficiency anemia type Given 08/03/2023 1:10 PM REGISTERED DENTAL ASSISTANT 10 mL documented in this encounter Orders Nursing Count Last Ordered Date First Orde red Date ONCBCN NO PREMEDS NEEDED 1 08/03/2023 documented in this encounter Care Teams Research & Analytics Manager Relationship Specialty Start Date End Date Pepper Morgan MD PCP - General 09/16/16 Hank Garibay MD [address] [place] [address] Surgeon Orthopedic Surgery 03/27/17 Jacky Murry MD [address] [place] [address] Ophthalmology 03/27/17 Puma Mckenzie MD [address] [place] [address] Surgeon Orthopedic Surgery 07/11/19 Neha Jackson, PT Physical Therapist Physical Therapy 12/01/21 Stalin Arauz MD [address] [place] [address] Consulting Physician Cardiology 12/08/22 Tiffany Rojas PA [address] [place] [address] Gastroenterology 12/30/22 Klaus Deshpande MD [address] [place] [address] Consulting Physician Neurology 06/13/23 documented as of this encounter
--- OUTSIDE RECORDS SUMMARY | 2024-06-18 18:50 | XMS_ITS | Encounter Summary ---
Author Organization [facility] Address [address] [place] [address] Care Team Providers Care Agency Operator Name Role Phone Pepper Morgan MD Primary Care Provider + [phone] Hank Garibay MD Unavailable [phone] Jacky Murry MD Unavailable [phone] Puma Mckenzie MD Unavailable [phone] Neha Jackson PT Unavailable Unavailable Stalin Arauz MD Unavailable [phone] Tiffany Rojas Unavailable [phone] Klaus Deshpande MD Unavailable [phone] Reason for Referral * Cardiology (Routine) - Closed Specialty Diagnoses / Procedures Referred By Contac t Referred To Contact Diagnoses Chronic atrial fibrillation (HCC) Procedures 48 HR Holter Monitor Stalin Arauz MD [address] [place] [address] [address] Phone: tel: fax: [address] [address] Referral ID Status Reason Start Date Expiration Date Visits Re quested Visits Authorized [id number] Closed 07/31/2023 08/29/[address] FIRE CONTROL OFFICER Reason for Visit * Reason Comments Atrial Fibrillation Peripheral Artery Disease Encounter Details Date Type Department Care Team (Late st Contact Info) Description 07/31/2023 9:00 AM FOREST FIRE CONTROL OFFICER Office Visit [place] [facility] Principal at [address] [place] [address] Stalin Arauz MD [address] [place] [address] [address] [place] [address] Chronic atrial fibrillation (HCC) (Primary Dx); Chronic heart failure with preserved ejection fraction (CMS/HCC) (HCC); Atherosclerosis of kaibab arteries of extremities with intermittent claudication, bilateral legs (HCC); 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 Social History Tobacco Use Types Packs/Day Years Used Date Smoking Tobacco: Former Cigarettes 2 30 1981 Smokeless Tobacco: Never Alcohol Use Standard Drinks/Week Comments Not Currently 0 (1 standard drink = 0.6 oz pur e alcohol) [facility] Utilities Answer Date Recorded In the past 12 months has [employer], gas, oil, or water [employer] threatened to shut off services in your [...] week 07/24/2023 How often do you attend [facility] or faith services? Never 07/24/2023 Do you belong to any clubs o r organizations such as alevism groups, unions, fraternal or athletic groups, or [...] on file Legal Sex Female 4:33 AM FOREST FIRE CONTROL OFFICER Gender Identity Not on file Sexual Orientation Not on file Occupation Industry Job Start Date Job End Date retired Not on file Not on file Not on file documented as of this encounter Last Filed Vital Signs Vital Sign Reading Time Taken Comments Blood Pressure 115/76 07/31/2023 8:48 AM FOREST FIRE CONTROL OFFICER Pulse 84 07/31/2023 8:48 AM FOREST FIRE CONTROL OFFICER Temperature - - Respiratory Rate 18 07/31/2023 8:48 AM FOREST FIRE CONTROL OFFICER Oxygen Saturation - - Inhaled Oxygen Concentration - - Weight 84.8 kg (187 lb) 07/31/2023 8:48 AM FOREST FIRE CONTROL OFFICER Height 152.4 cm (5') 07/31/2023 8:48 AM FOREST FIRE CONTROL OFFICER Body Mass Index 36.52 07/31/2023 8:48 AM FOREST FIRE CONTROL OFFICER documented in this encounter Progress Notes * Stalin Arauz MD - 07/31/2023 9:00 AM CST Cardiology note Reason for Office Visit: Chief Complaint Patient presents with Atrial Fibrillation Peripheral Artery Disease History of Present Illness: Tess Benedict is a 87 y.o. female who presents today for follow up for CHF, peripheral artery [...] or syncope. No shortness of breath or REDYD. Reports she feels tired all of the time. Limited in her walking to about 100 yrds d/t generalized fatigue and back pain Review of Systems Constitutional: Positive for malaise/fatigue. [...] of nose 09/2008 CHF (congestive heart failure) ([facility]) ([facility]) Cough DVT (deep venous thrombosis) ([facility]) ([facility]) 1976 upper left arm near [...] TOTAL HIP ARTHROPLASTY Left 11/01/2021 Dr. Mckenzie, [facility]. Family History Problem Relation Age of Onset [...] a day with meals 180 tablet 2 cetirizine (ZyrTEC) 10 mg tablet Take [...] a day 60 tablet 11 metOLazone (ZAROXOLYN) 2.5 mg tablet Take [...] tablet 11 pramipexole (MIRAPEX) 0.5 mg tablet Take 1 tablet (0.5 mg total) by mouth 2 (two) times a day 60 tablet 3 propranoloL (INDERAL) 20 mg tablet Take 1 tablet (20 mg total) by mouth 2 (two) times a day as needed (Tremor) 180 tablet 2 rivaroxaban (XARELTO) 20 mg tablet Take 1 tablet (20 mg total) by mouth daily (Patient taking differently: Take 1 tablet (20 mg total) by mouth daily with lunch) 30 tablet 11 spironolactone (ALDACTONE) 25 mg tablet Take 1 tablet (25 mg total) by mouth daily 30 tablet 11 No current facility-administered medications for this visit. Vitals BP 115/76 (BP Location: Right arm, Patient Position: Sitting) Pulse 84 Resp 18 Ht 152.4 cm (5') Wt 84.8 kg (187 lb) LMP (LMP Unknown) BMI 36.52 kg/m?? Vitals: 07/31/23 0848 BP: 115/76 Pulse: 84 Resp: 18 Wt Readings from Last 3 Encounters: 07/31/23 84.8 kg (187 lb) 07/25/23 85.7 kg (188 lb 15 oz) 07/19/23 88 kg (194 lb) Body mass index is 36.52 kg/m??. Physical Exam Constitutional: General: She is [...] normal. Pedal pulses On the right, DP faintly present by Doppler, PT is present On the left, Dorsalis pedis is strong by Doppler. Posterior tibial is strong by Doppler Trace bilateral lower extremity edema. Worse on the left No open wounds Feet are warm Labs: [...] 07/22/2023 Lab Results Component Value Date SODIUM 139 07/23/2023 POTASSIUM 3.5 07/23/2023 CHLORIDE 98 07/23/2023 CO2 30 07/23/2023 ANIONGAP 11 07/23/2023 CK 114 11/09/2021 GLUCOSEUR 3+ (A) 06/25/2023 No results found for: BNP Lab Results Component Value Date SODIUM 139 07/23/2023 SODIUM 139 07/22/2023 SODIUM 136 07/18/2023 POTASSIUM 3.5 07/23/2023 POTASSIUM 4.5 07/22/2023 POTASSIUM 3.5 07/18/2023 CHLORIDE 98 07/23/2023 CHLORIDE 99 07/22/2023 CHLORIDE 98 07/18/2023 CO2 30 07/23/2023 CO2 28 07/22/2023 CO2 29 07/18/2023 BUNSER 36 (H) 07/23/2023 BUNSER 33 (H) 07/22/2023 BUNSER 30 (H) 07/18/2023 CREATININE 1.46 (H) 07/23/2023 CREATININE 1.37 (H) 07/22/2023 CREATININE 1.29 (H) 07/18/2023 GFRNAA 35 07/23/2023 GFRNAA 38 07/22/2023 GFRNAA 41 07/18/2023 GLUCOSE 93 07/23/2023 CALCIUM 9.2 07/23/2023 CALCIUM 9.2 07/22/2023 CALCIUM 9.3 07/18/2023 ALBUMIN 3.7 07/22/2023 ALBUMIN 3.5 06/24/2023 ALBUMIN 3.5 06/14/2023 PHOS 3.4 12/29/2022 PHOS 3.2 02/14/2017 PHOS 3.9 04/29/2014 Lab Results Component Value Date SODIUM 139 07/23/2023 POTASSIUM 3.5 07/23/2023 CHLORIDE 98 07/23/2023 CO2 30 07/23/2023 ANIONGAP 11 07/23/2023 BUNSER 36 (H) 07/23/2023 CREATININE 1.46 (H) 07/23/2023 GLUCOSE 93 07/23/2023 CALCIUM 9.2 07/23/2023 BILITOT 0.4 07/22/2023 PROT 6.9 07/22/2023 ALBUMIN 3.7 07/22/2023 ALKPHOS 156 (H) 07/22/2023 ALT 17 07/22/2023 AST 18 07/22/2023 Lab Results Component Value Date WBC 7.8 07/24/2023 HGB 8.2 (L) 07/24/2023 HCT 28.5 (L) 07/24/2023 LABPLAT 393 07/24/2023 MPV 9.2 07/24/2023 RBC 3.86 (L) 07/24/2023 MCV 73.8 (L) 07/24/2023 MCH 21.2 (L) 07/24/2023 MCHC 28.8 (L) 07/24/2023 RDWCV 17.4 (H) 07/24/2023 RDWSD 46.5 07/24/2023 NRBCABS 0.00 07/24/2023 Lab Results Component Value Date CHOL 128 [...] >50%). Ankle-brachial index in June 2022 1. Bcxc-rr-padujtbx arterial insufficiency at rest in the right [...] waveform at the ankle. JONATHAN 10/24/2022 1. Ioie-mu-blajvepd arterial insufficiency at rest in the right [...] waveform at the ankle. Echo in 05/2023 CONCLUSIONS: Technically difficult study with limited views. [...] by planimetry 1.7 cm2. No aortic regurgitation. Diagnoses 1. Atypical leg symptoms ? Peripheral [...] successful. Postprocedure, legs are not much improved. Despite improvement of ankle-brachial index on the left Ankle-brachial indexes stable on the left slightly improved on the right 2. Atrial fibrillation, probably chronic on Xarelto. Normal noninvasive evaluation including echo in 05/2023 and stress test in April 2022 3. Stenosis in abdominal aorta by CTA , not noticed on angiography 4. H/o nicotine [...] lasix that morning Treat and correct anemia BMP / BNP / CBC to assess current compensation . Pt probably at her ideal weight . Holter 48 to assess HR control RTC in 3 months Diagnoses and all orders for this visit: Chronic atrial fibrillation (HCC) (Primary) Chronic heart failure with preserved ejection fraction (CMS/HCC) (HCC) Atherosclerosis of kaibab arteries of extremities with intermittent claudication, bilateral legs (HCC) 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 Return in about 3 months (around 10/29/2023). 07/31/2023 9:37 AM Stalin Arauz MD Cc:Pepper Morgan MD ST FIRE CONTROL OFFICER documented in this encounter Miscellaneous Notes * Addendum Note - Diana Bowman MA - 07/31/2023 9:00 AM CSTAddended by: DIANA BOWMAN on: 07/31/2023 09:58 AM Modules accepted: Orders ST FIRE CONTROL OFFICER documented in this encounter Plan of Treatment [...] documented as of this encounter Results * 48 HR Holter Monitor (08/18/2023 12:28 PM FOREST FIRE CONTROL OFFICER) Anatomical Region Laterality Modality Electrocardiogra phy 08/18/2023 2:00 PM FOREST FIRE CONTROL OFFICER Narrative 08/23/2023 9:50 AM FOREST FIRE CONTROL OFFICER [address] [address] HOLTER MONITOR Patient Name: TESS BENEDICT : 1935 Study Date: 08/18/2023 2:00:00 PM Gender: F Tech: ??Ref Provider: STALIN ARAUZ Height(Cm): ??BSA: Weight(Kg): ? Order Provider: STALIN ARAUZ - PROCEDURES: Holter Report: Holter Monitor Report. INDICATIONS: Atrial Fibrillation Chronic I48.2. FINDINGS: Protocol: ??Recording Duration (Ordered): [id number] ??Date Recorded: 2023-08-18 14:00:00 CONCLUSIONS: 1. Predominant [...] Signed By: Dr Saud Ayers 2023-08-23 09:49:08 FOREST FIRE CONTROL OFFICER Procedure Note Saud Ayers MD - 08/23/[address] [place] [address] HOLTER MONITOR Patient Name: TESS BENEDICT : 1935 Study Date: 08/18/2023 2:00:00 PM Gender: F Tech: Ref Provider: STALIN ARAUZ Height(Cm): BSA: Weight(Kg): Order Provider: STALIN ARAUZ - PROCEDURES: Holter Report: Holter Monitor Report. INDICATIONS: Atrial Fibrillation Chronic I48.2. FINDINGS: Protocol: Recording Duration (Ordered): [id number] Date Recorded: 2023-08-18 14:00:00 CONCLUSIONS: 1. Predominant [...] Signed By: Dr Saud Ayers 2023-08-23 09:49:08 FOREST FIRE CONTROL OFFICER us Stalin Arauz MD [facility] CARDIAC SERVICES PROCEDURES Final Result * (ABNORMAL) Pro B-type natriuretic peptide (07/31/2023 10:23 AM FOREST FIRE CONTROL OFFICER) NT-proBNP 4,735(H) <=450 pg/mL [facility] ([place]) Comment: Interpretive Comments: A. Dyspnea in Acute [...] Interpretive Data Last Revised Date: 2018. Blood 07/31/2023 10:2 3 AM FOREST FIRE CONTROL OFFICER 07/31/2023 10:42 AM FOREST FIRE CONTROL OFFICER us Stalin Arauz MD LAB BLOOD ORDERABLES Final Resu lt [facility] ([place]) [facility] Department [place] [address] * (ABNORMAL) CBC with auto differential (07/31/2023 10:23 AM FOREST FIRE CONTROL OFFICER) WBC 9.3 3.8 - 9.9 K/cumm [facility] ([place]) Hgb 10.3(L) 11.9 - 15.5 g/dL [facility] ([place]) Hct 36.0 35.6 - 45.5 % [facility] ([place]) Plt 418(H) 150 - 400 K/cumm [facility] ([place]) MPV 8.9(L) 9.1 - 12.3 fL [facility] ([place]) RBC 4.63 3.90 - 5.20 M/cumm [facility] ([place]) MCV 77.8(L) 81.3 - 96.4 fL [facility] ([place]) MCH 22.2(L) 27.1 - 33.3 pg [facility] ([place]) MCHC 28.6(L) 32.3 - 35.7 g/dL [facility] ([place]) RDW CV 24.3(H) 11.1 - 14.9 % [facility] ([place]) RDW SD 62.4(H) 35.7 - 48.1 fL [facility] ([place]) NRBC abs 0.00 0.00 - 0.01 K/cumm [facility] ([place]) Blood 07/31/2023 10:2 3 AM FOREST FIRE CONTROL OFFICER 07/31/2023 10:42 AM FOREST FIRE CONTROL OFFICER Stalin Arauz MD LAB BLOOD ORDERABLES Final Resu lt [facility] ([place]) [facility] Department [place] [address] * (ABNORMAL) Basic metabolic panel (07/31/2023 10:23 AM FOREST FIRE CONTROL OFFICER) Sodium 133(L) 135 - 145 mmol/L [facility] ([place]) Potassium, pl 4.3 3.3 - 4.9 mmol/L [facility] ([place]) Chloride 95(L) 97 - 110 mmol/L [facility] ([place]) CO2 28 22 - 32 mmol/L [facility] ([place]) Anion gap 10 2 - 15 mmol/L [facility] ([place]) BUN 24 6 - 25 mg/dL [facility] ([place]) Creatinine 1.31(H) 0.60 - 1.10 mg/dL [facility] ([place]) Glucose 102 70 - 199 mg/dL [facility] ([place]) [...] 2022. Calcium 9.8 8.5 - 10.3 mg/dL [facility] ([place]) Blood 07/31/2023 10:2 3 AM FOREST FIRE CONTROL OFFICER 07/31/2023 10:42 AM FOREST FIRE CONTROL OFFICER Stalin Arauz MD LAB BLOOD ORDERABLES Final Resu lt [facility] ([place]) [facility] Department [place] [address] documented in this encounter Visit Diagnoses Diagnosis Chronic atrial fibrillation (HCC)- Primary Atrial fibrillation Chronic heart failure with preserved ejection fraction (CMS/HCC) (HCC) Atherosclerosis of kaibab arteries of extremities with intermittent claudication, bilateral legs (HCC) 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 Essential hypertension, benign Chronic atrial fibrillation (HCC) Atrial fibrillation documented in this encounter Care Teams Agency Operator Relationship Specialty Start Date End Date Pepper Morgan MD PCP - General 09/16/16 Hank Garibay MD [address] [facility] [address] [place] [address] Surgeon Orthopedic Surgery 03/27/17 Jacky Murry MD [address] [facility] [address] [place] [address] Ophthalmology 03/27/17 Puma Mckenzie MD [address] [place] [address] [address] [place] [address] Surgeon Orthopedic Surgery 07/11/19 Neha Jackson, PT Physical Therapist Physical Therapy 12/01/21 Stalin Arauz MD [address] [facility] [address] [place] [address] Consulting Physician Cardiology 12/08/22 Tiffany Rojas, PA [address] [facility] [address] [place] [address] Gastroenterology 12/30/22 Klaus Deshpande MD [address] [place] [address] [address] [place] [address] Consulting Physician Neurology 06/13/23 documented as of this encounter
--- OUTSIDE RECORDS SUMMARY | 2024-06-18 18:50 | XMS_ITS | Encounter Summary ---
Author Organization [facility] Address [address] [place] [address] Care Team Providers Care Shaker Tender Name Role Phone Pepper Morgan MD Primary Care Provider [phone] Hank Garibay MD Unavailable [phone] Jacky Murry MD Unavailable [phone] Puma Mckenzie MD Unavailable [phone] Neha Jackson PT Unavailable Unavailable Stalin Arauz MD Unavailable [phone] Tiffany Rojas Unavailable [phone] Klaus Deshpande MD Unavailable [phone] Encounter Details Date Type Department Care Team (Late st Contact Info) Description 07/19/2023 Telephone [facility] [address] [place] [address] Pepper Morgan MD [address] [place] [address] Social History Tobacco Use Types Packs/Day Years [...] often do you attend chur ch or confucianism services? Never 12/29/2022 Do you belong to [...] No 12/29/2022 Personal Safety Answer Date Recorded Getting School Help Needed Denies 05/29 Comments No Sex and Gender Information Value Date Recorded Sex Assigned at Not on file Legal Sex Female 4:33 AM DISTRIBUTION ENGINEERING TECHNOLOGIST Gender Identity Not on file Sexual Orientation Not on file Occupation Industry Job Start Date Job End Date retired Not on file Not on file Not on file documented as of this encounter Miscellaneous Notes * Telephone Encounter - Phylicia Hitchcock RN - 07/19/2023 4:00 PM DISTRIBUTION ENGINEERING TECHNOLOGIST Patient returned call to schedule Venofer infusions. Appointment was scheduled and patient verbalized understanding. Patient was informed of location of infusion center. RIBUTION ENGINEERING TECHNOLOGIST documented in this encounter Plan of Treatment [...] on filedocumented in this encounter Care Teams Shaker Tender Relationship Specialty Start Date End Date Pepper Morgan MD PCP - General 09/16/16 Hank Garibay MD [address] [place] [address] [place] [address] Surgeon Orthopedic Surgery 03/27/17 Jacky Murry MD [address] [facility] [address] [place] [address] Ophthalmology 03/27/17 Puma Mckenzie MD [address] [facility] [address] [place] [address] Surgeon Orthopedic Surgery 07/11/19 Neha Jackson, PT Physical Therapist Physical Therapy 12/01/21 Stalin Arauz MD [address] [facility] [address] [place] [address] Consulting Physician Cardiology 12/08/22 Tiffany Rojas PA [address] [facility] [address] [place] [address] Gastroenterology 12/30/22 Klaus Deshpande MD [address] [facility] [address] [place] [address] Consulting Physician Neurology 06/13/23 documented as of this encounter
--- OUTSIDE RECORDS SUMMARY | 2024-06-18 18:50 | XMS_ITS | Encounter Summary ---
Author Organization [facility] Address [address] [place] [address] Care Team Providers Care Lead Fire Protection Engineer Name Role Phone Pepper Morgan MD Primary Care Provider + [phone] Hank Garibay MD Unavailable [phone] Jacky Murry MD Unavailable [phone] Puma Mckenzie MD Unavailable [phone] Neha Jackson PT Unavailable Unavailable Stalin Arauz MD Unavailable [phone] Tiffany Rojas Unavailable [phone] Klaus Deshpande MD Unavailable [phone] Encounter Details Date Type Department Care Team (Late st Contact Info) Description 08/01/2023 Telephone [employer] at [address] [place] [phone] Hai Dalton MA Social History Tobacco Use Types Packs/Day Years Used Date Smoking Tobacco: Former Cigarettes 2 30 1 952 - 1982 Smokeless Tobacco: Never Alcohol Use Standard Drinks/Week Comments Not Currently 0 (1 standard drink = 0.6 oz pur e alcohol) [facility] Utilities Answer Date Recorded In the past 12 months has [email or web address], gas, oil, or water company threatened to [...] on file Legal Sex Female 4:33 AM FACTORY REPRESENTATIVE Gender Identity Not on file Sexual Orientation Not on file Occupation Industry Job Start Date Job End Date retired Not on file Not on file Not on file documented as of this encounter Miscellaneous Notes * Telephone Encounter - Hai Dalton MA - 08/01/2023 1:05 PM CST Left message with Dr. Arauz's response. Patient to call back with any questions. ORY REPRESENTATIVE * Telephone Encounter - Hai Dalton MA - 08/01/2023 1:05 PM CST ----- Message from Stalin Arauz MD sent at 07/31/2023 1:16 PM FACTORY REPRESENTATIVE ----- Labs showed still volume overload. Continue current diuretic. Her dry weight should be about 4 lb less than today's weight ----- Message ----- From: Interface, Lab Results In Sent: 07/31/2023 10:45 AM FACTORY REPRESENTATIVE To: Stalin Arauz MD ORY REPRESENTATIVE documented in this encounter Plan of Treatment [...] filedocumented in this encounter Care Teams Lead Fire Protection Engineer Relationship Specialty Start Date End Date Pepper Morgan MD PCP - General 09/16/16 Hank Garibay MD [address] [facility] [address] [place] [address] Surgeon Orthopedic Surgery 03/27/17 Jacky Murry MD [address] [facility] [address] [place] [address] Ophthalmology 03/27/17 Puma Mckenzie MD [address] [facility] [address] [place] [address] Surgeon Orthopedic Surgery 07/11/19 Neha Jacskon, PT Physical Therapist Physical Therapy 12/01/21 Stalin Arauz MD [address] [facility] [address] [place] [address] Consulting Physician Cardiology 12/08/22 Tiffany Rojas PA [address] [facility] [address] [place] [address] Gastroenterology 12/30/22 Klaus Deshpande MD [address] [facility] [address] [place] [address] Consulting Physician Neurology 06/13/23 documented as of this encounter
--- OUTSIDE RECORDS SUMMARY | 2024-06-18 18:50 | XMS_ITS | Encounter Summary ---
Author Organization [facility] Address [address] [place] [address] Care Team Providers Care Transportation Engineering Technician Name Role Phone Pepper Morgan MD Primary Care Provider +- [phone] Hank Garibay MD Unavailable [phone] Jacky Murry MD Unavailable [phone] Puma Mckenzie MD Unavailable [phone] Neha Jackson PT Unavailable Unavailable Stalin Arauz MD Unavailable [phone] Tiffany Rojas Unavailable [phone] Klaus Deshpande MD Unavailable [phone] Encounter Details Date Type Department Care Team (Late st Contact Info) Description 07/24/2023 Telephone [facility] [address] [place] [phone] Pepper Morgan MD [address] [place] [address] Social History Tobacco Use Types Packs/Day Years Used Date Smoking Tobacco: Former Cigarettes 2 30 1 952 - 1982 Smokeless Tobacco: Never Alcohol Use Standard Drinks/Week Comments Not Currently 0 (1 standard drink = 0.6 oz pur e alcohol) [facility] Utilities Answer Date Recorded In the [...] any clubs o r organizations such as samaritan groups, unions, fraternal or athletic groups, or [...] on file Legal Sex Female 4:33 AM BUSINESS BANKING OFFICER Gender Identity Not on file Sexual Orientation Not on file Occupation Industry Job Start Date Job End Date retired Not on file Not on file Not on file documented as of this encounter Miscellaneous Notes * Telephone Encounter - Charity Pinedo LPN - 08/07/2023 9:02 AM BUSINESS BANKING OFFICER Informed pt [phone] that JUAN CARLOS does want her to do a Vitamin B12 Level. Pt voiced understanding and states she will have this lab completed when she goes to [facility] 08/10/23 for her Iron Infusion. Order completed for B12 Level @ [facility]. Pt had no further questions/concerns at this time. NESS BANKING OFFICER * Telephone Encounter - Charity Pinedo LPN - 07/24/2023 8:57 AM BUSINESS BANKING OFFICER Spoke with Mario @ [facility] Lab [phone] who states they cannot add Vitamin B 12 Level to the labs thatwere collected 07/18/23. Pt is inpatient at [facility] at this time. Spoke with Mamie @ [facility] [phone] to seeif they can run the B12 Level off of blood specimens collected while inpatient. Mamie states that,due to insurance issues, they cannot run outpatient labs from inpatient specimens. Therefore, pt will have to go back to the lab to have this level drawn once she is D/C home. NESS BANKING OFFICER * Telephone Encounter - Charity Pinedo LPN - 07/24/2023 8:57 AM BUSINESS BANKING OFFICER ----- Message from Pepper Morgan MD sent at 07/21/2023 12:27 PM BUSINESS BANKING OFFICER ----- She is iron deficiency anemia and we are looking to see if she was also B12 deficient so that we can correct her anemia as we replace her iron These are the tests that I ordered at my last visit = 1. Labs for next Monday along with those with Dr. Arauz : Also send copy to Dr. Arauz = CBC, iron profile, B12, MMA , free T4, TSH, vitamin-D level = microcytic anemia , tiredness Her MMA is elevated so she might have B12 deficiency but it looks like the front office staff couldnot order the B12 level. Check with could be added to the labs already have or if there could be another lab draw done when convenient within the next week ----- Message ----- From: Interface, Lab Results In Sent: 07/18/2023 10:33 AM BUSINESS BANKING OFFICER To: Pepper Morgan MD NESS BANKING OFFICER NESS BANKING OFFICER documented in this encounter Plan of [...] documented as of this encounter Results * Vitamin B12 (08/10/2023 10:56 AM BUSINESS BANKING OFFICER) Vitamin B12 723 230 - 1,250 pg/mL [facility] Blood 08/10/2023 10:5 6 AM BUSINESS BANKING OFFICER 08/10/2023 1:29 PM BUSINESS BANKING OFFICER us Pepper Morgan MD LAB BLOOD ORDERABLES Final Result [facility] 1 [facility] Department [place] [address] documented in this encounter Visit Diagnoses Diagnosis Microcytic anemia- Primary Unspecified iron deficiency anemia Tiredness Other malaise and fatigue documented in this encounter Care Teams Transportation Engineering Technician Relationship Specialty Start Date End Date Pepper Morgan MD PCP - General 09/16/16 Hank Garibay MD [address] [facility] [address] WARN[address] [place] [facility] [address] [place] [address] Surgeon Orthopedic Surgery 03/27/17 Jacky Murry MD [address] [facility] [address] WARNER [place] [facility] [address] [place] [address] Ophthalmology 03/27/17 Puma Mckenzie MD [address] [facility] [address] WARNER [place] [facility] [address] [place] [address] Surgeon Orthopedic Surgery 07/11/19 Neha Jackson, PT Physical Therapist Physical Therapy 12/01/21 Stalin Arauz MD [address] [facility] [address] [place] [address] Consulting Physician Cardiology 12/08/22 Tiffany Rojas PA [address] [facility] [address] [place] [address] Gastroenterology 12/30/22 Klaus Deshpande MD [address] [facility] [address] [facility] [place] [address] Consulting Physician Neurology 06/13/23 documented as of this encounter
--- OUTSIDE RECORDS SUMMARY | 2024-06-18 18:50 | XMS_ITS | Encounter Summary ---
Author Organization [facility] Healthcare Address [address] [place] [address] Care Team Providers Care Bank Messenger Name Role Phone Pepper Morgan MD Primary Care Provider + [phone] Hank Garibay MD Unavailable [phone] Jacky Murry MD Unavailable [phone] Puma Mckenzie MD Unavailable [phone] Neha Jackson PT Unavailable Unavailable Stalin Arauz MD Unavailable [phone] Tiffany Rojas Unavailable [phone] Klaus Deshpande MD Unavailable [phone] Encounter Details Date Type Department Care Team (Late st Contact Info) Description 07/31/2023 10:15 AM NEGATIVE CLEANER Lab [address] [phone] Chronic heart failure with preserved ejection fraction (CMS/HCC) (HCC); Chronic atrial fibrillation (HCC) Social History Tobacco Use Types Packs/Day Years Used Date Smoking Tobacco: Former Cigarettes 2 30 1 1981 Smokeless Tobacco: Never Alcohol Use Standard Drinks/Week Comments Not Currently 0 (1 standard drink = 0.6 oz pur e alcohol) [facility] Utilities Answer Date Recorded In the past 12 months has [employer], oil, or water [employer] threatened to shut off services in your [...] on file Legal Sex Female 4:33 AM NEGATIVE CLEANER Gender Identity Not on file Sexual Orientation [...] Priority Date/Time Associated Diagnosis Comments EGFR Routine 07/31/2023 10:23 AM NEGATIVE CLEANER Chronic atrial fibrillation (HCC) DIFFERENTIAL AUTO Routine 07/31/2023 10: 23 AM NEGATIVE CLEANER Chronic atrial fibrillation (HCC) PRO B-TYPE NATRIURETIC PEPTIDE Routine 07/31/2023 10:23 AM NEGATIVE CLEANER Chronic heart failure with preserved ejection fraction (CMS/HCC) (HCC) CBC WITH AUTO DIFFERENTIAL Routine 07/31/2023 10:23 AM NEGATIVE CLEANER Chronic atrial fibrillation (HCC) BASIC METABOLIC PANEL Routine 07/31/2023 10:23 AM NEGATIVE CLEANER Chronic atrial fibrillation (HCC) documented in this encounter Results * eGFR (07/31/2023 10:23 AM NEGATIVE CLEANER) eGFR 40 mL/min/1. 73 m2 [facility] Comment: Interpretive Data Reference Interval Normal ?>/= [...] interpretive data was last reviewed 2021. Blood 07/31/2023 10:2 3 AM NEGATIVE CLEANER 07/31/2023 10:42 AM NEGATIVE CLEANER us Stalin Arauz MD LAB BLOOD ORDERABLES Final Resu lt [facility] 1 [facility] Department [place] [address] * (ABNORMAL) Differential, auto (07/31/2023 10:23 AM NEGATIVE CLEANER) Neutrophil abs 7.3(H) 1.5 - 6.5 K/cumm [facility] Imm gran abs 0.2(H) 0.0 - 0.1 K/cumm [facility] ([place]) Lymphocyte abs 0.9 0.8 - 3.3 K/cumm [facility]) Monocyte abs 0.7 0.2 - 0.8 K/cumm [facility] ([place]) Eosinophil abs 0.2 0.0 - 0.5 K/cumm [facility] ([place]) Basophil abs 0.1 0.0 - 0.1 K/cumm [facility] ([place]) Neutrophil pct 77.9 % [facility] ([place] Comment: Interpretive Data Percent cell count reference ranges are not reported, since discordance with absolute values may lead to misinterpretation of CBC data. Current Interpretive Data was last revised on 2017. Imm gran pct 2.4 % [facility] Comment: Interpretive Data Percent cell count reference ranges are not reported, since discordance with absolute values may lead to misinterpretation of CBC data. Current Interpretive Data was last revised on 2017. Lymphocyte pct 9.2 % [facility] Comment: Interpretive Data Percent cell count reference ranges are not reported, since discordance with absolute values may lead to misinterpretation of CBC data. Current Interpretive Data was last revised on 2017. Monocyte pct 7.4 % [facility] Comment: Interpretive Data [...] revised on 2017. Basophil pct 0.8 % [facility] Comment: Interpretive Data Percent cell count reference ranges are not reported, since discordance with absolute values may lead to misinterpretation of CBC data. Current Interpretive Data was last revised on 2017. Blood 07/31/2023 10:2 3 AM NEGATIVE CLEANER 07/31/2023 10:42 AM NEGATIVE CLEANER us Stalin Arauz MD LAB BLOOD ORDERABLES Final Resu lt Performing Organization Address City/[facility]/ZIP Co de Phone Number [facility] 1 [facility] [place] [address] * (ABNORMAL) Basic metabolic panel (07/31/2023 10:23 AM NEGATIVE CLEANER) Sodium 133(L) 135 - 145 mmol/L [facility] [...] [facility] ([place]) Blood 07/31/2023 10:2 3 AM NEGATIVE CLEANER 07/31/2023 10:42 AM NEGATIVE CLEANER Stalin Arauz MD LAB BLOOD ORDERABLES Final Resu lt Performing Organization Address City/[facility]/ZIP Co de Phone Number [facility] 1 [facility] [place] [address] * (ABNORMAL) CBC with auto differential (07/31/2023 10:23 AM NEGATIVE CLEANER) WBC 9.3 3.8 - 9.9 K/cumm [facility] [...] [facility] ([place]) Blood 07/31/2023 10:2 3 AM NEGATIVE CLEANER 07/31/2023 10:42 AM NEGATIVE CLEANER us Stalin Arauz MD LAB BLOOD ORDERABLES Final Resu lt [facility] 1 [facility] Department [place] [address] * (ABNORMAL) Pro B-type natriuretic peptide (07/31/2023 10:23 AM NEGATIVE CLEANER) Pathologist [facility] NT-proBNP 4,735(H) <=450 pg/mL [facility] ([place]) Comment: Interpretive Comments: A. Dyspnea in [...] Date: 2018. Blood 07/31/2023 10:2 3 AM NEGATIVE CLEANER 07/31/2023 10:42 AM NEGATIVE CLEANER us Stalin Arauz MD LAB BLOOD ORDERABLES Final Resu lt [facility] [place]) 1 [facility] [place] [address] documented in this encounter Visit Diagnoses Diagnosis Chronic heart failure with preserved ejection fraction (CMS/HCC) (HCC) Chronic atrial fibrillation (HCC) Atrial fibrillation documented in this encounter Care Teams Bank Messenger Relationship Specialty Start Date End Date Ppeper Morgan MD PCP - General 09/16/16 Hank Garibay MD [address] [facility] [address] [place] [address] Surgeon Orthopedic Surgery 03/27/17 Jacky Murry MD [address] [facility] [address] [place] [address] Ophthalmology 03/27/17 Puma Mckenzie MD [address] [facility] [address] [place] [address] Surgeon Orthopedic Surgery 07/11/19 Neha Jackson, PT Physical Therapist Physical Therapy 12/01/21 Stlain Arauz MD [address] [facility] [address] [place] [address] Consulting Physician Cardiology 12/08/22 Tiffany Rojas PA [address] [facility] [address] [place] [address] Gastroenterology 12/30/22 Klaus Deshpande MD [address] [facility] [address] [place] [address] Consulting Physician Neurology 06/13/23 documented as of this encounter
--- OUTSIDE RECORDS SUMMARY | 2024-06-18 18:50 | XMS_ITS | Encounter Summary ---
Author Organization [facility] Healthcare Address [address] [place] [address] Care Team Providers Care Brand Marketing Intern Name Role Phone Pepper Morgan MD Primary Care Provider + [phone] Hank Garibay MD Unavailable [phone] Jacky Murry MD Unavailable [phone] Puma Mckenzie MD Unavailable [phone] Neha Jackson PT Unavailable Unavailable Stalin Arauz MD Unavailable [phone] Tiffany Rojas Unavailable [phone] Klaus Deshpande MD Unavailable [phone] Encounter Details Date Type Department Care Team (Late st Contact Info) Description 08/14/2023 Telephone Loco Gate Supervisor at [address] [place] [phone] Hai Dalton MA Social History Tobacco Use Types Packs/Day Years Used Date Smoking Tobacco: Former Cigarettes 2 30 1 952 - 1982 Smokeless Tobacco: Never Alcohol Use Standard Drinks/Week Comments Not Currently 0 (1 standard drink = 0.6 oz pur e alcohol) [place] Utilities Answer Date Recorded In the past 12 months has [employer], gas, oil, or water company threatened to [...] often do you attend chur ch or protestant services? Never 07/24/2023 Do you belong to any clubs o r organizations such as quaker groups, unions, fraternal or athletic groups, or [...] file Legal Sex Female 4:33 AM SYSTEMS SPEC Gender Identity Not on file Sexual Orientation Not on file Occupation Industry Job Start Date Job End Date retired Not on file Not on file Not on file documented as of this encounter Miscellaneous Notes * Telephone Encounter - Hai Dalton MA - 08/14/2023 1:17 PM CST Sent medication to pharmacy and left message with patient regarding Dr. Arauz's resposne. EMS SPEC * Telephone Encounter - Hai Dalton MA - 08/14/2023 8:14 AM CST Patient called stating that she has felt sick for the last several days with nausea. She is wondering if it is related to any of her medications. EMS SPEC documented in this encounter Plan of Treatment [...] on filedocumented in this encounter Care Teams Brand Marketing Intern Relationship Specialty Start Date End Date Pepper Morgan MD PCP - General 09/16/16 Hank Garibay MD [address] [facility] [address] [place] [address] Surgeon Orthopedic Surgery 03/27/17 Jacky Murry MD [address] [facility] [address] [place] [address] Ophthalmology 03/27/17 Puma Mckenzie MD [address] [facility] [address] [place] [address] Surgeon Orthopedic Surgery 07/11/19 Neha Jackson, PT Physical Therapist Physical Therapy 12/01/21 Stalin Arauz MD [address] [facility] [address] [place] [address] Consulting Physician Cardiology 12/08/22 Tiffany Rojas PA [address] [facility] [address] [place] [address] Gastroenterology 12/30/22 Klaus Deshpande MD [address] [facility] [address] [place] [address] Consulting Physician Neurology 06/13/23 documented as of this encounter
--- OUTSIDE RECORDS SUMMARY | 2024-06-18 18:50 | XMS_ITS | Encounter Summary ---
Author Organization [facility] Address [address] [place] [address] Care Team Providers Care Film Process Operator Name Role Phone Pepper Morgan MD Primary Care Provider + [phone] Hank Garibay MD Unavailable [phone] Jacky Murry MD Unavailable [phone] Puma Mckenzie MD Unavailable [phone] Neha Jackson PT Unavailable Unavailable Stalin Arauz MD Unavailable [phone] Tiffany Rojas Unavailable [phone] Klaus Deshpande MD Unavailable [phone] Reason for Visit * Reason Comments OP Infusion * Episode Based Medications (Routine) - Closed Specialty Diagnoses / Procedures Referred By Contac t Referred To Contact Diagnoses Iron deficiency anemia, unspecified iron deficiency anemia type Pepper Morgan MD [address] [place] [address] Phone: tel: fax: [facility] 4 [facility] [address] [place] [address] Phone: tel: Referral ID Status Reason Start Date Expiration Date Visits Re quested Visits Authorized [id number] Closed 07/19/2023 08/17/2024 3 3 Encounter Details Date Type Department Care Team (Late st Contact Info) Description 08/10/2023 11:30 AM [facility] [address] [place] [phone] Iron deficiency anemia, unspecified iron deficiency anemia [...] often do you attend chur ch or jain services? Never 07/24/2023 Do you belong to [...] on file Legal Sex Female 4:33 AM CHARGE ACCOUNT IDENTIFICATION CLERK Gender Identity Not on file Sexual Orientation Not on file Occupation Industry Job Start Date Job End Date retired Not on file Not on file Not on file documented as of this encounter Last Filed Vital Signs Vital Sign Reading Time Taken Comments Blood Pressure 109/63 08/10/2023 11:03 AM CHARGE ACCOUNT IDENTIFICATION CLERK Pulse 87 08/10/2023 11:03 AM CHARGE ACCOUNT IDENTIFICATION CLERK Temperature 35.8 ??C (96.4 ??F) 08/10/2023 11:[address] Respiratory Rate 18 08/10/2023 11:03 AM CHARGE ACCOUNT IDENTIFICATION CLERK Oxygen Saturation 100% 08/10/2023 11:03 AM CHARGE ACCOUNT IDENTIFICATION CLERK Inhaled Oxygen Concentration - - Weight - - Height - - Body Mass Index - - documented in this encounter Nursing Notes * Chata Patel RN - 08/10/2023 11:30 AM CST The patient presented to the infusion center per Dr. Aliza Morgan for Venofer. The patients vital signs are stable and she has no questions or concerns. Her IV was started in the right ac, blood returnwas noted and it flushed without resistance. Pt received her Venofer as per the mar and tolerated it well. Infusion completed and the patients IV was then flushed with NS and discontinued and she left in stable condition. GE ACCOUNT IDENTIFICATION CLERK documented in this encounter Plan of Treatment [...] Administer over 90 Minutes, Once, On Katy 08/10/23 at 1130, For 1 doseIndications:Iron deficiency anemia, unspecified iron deficiency anemia type New Bag 08/10/2023 11:11 AM CHARGE ACCOUNT IDENTIFICATION CLERK 300 mg 176.7 mL/hr sodium chloride 0.9% flush 10 mL 10 mL, intravenous, As needed, line care, Starting on Katy 08/10/23 at 1059, Flush pre and post IV catheter use.Indications:Iron deficiency anemia, unspecified iron deficiency anemia type Given 08/10/2023 12:50 PM CHARGE ACCOUNT IDENTIFICATION CLERK 10 mL documented in this encounter Orders Nursing Count Last Ordered Date First Orde red Date ONCBCN NO PREMEDS NEEDED 1 08/10/2023 documented in this encounter Care Teams Film Process Operator Relationship Specialty Start Date End Date Pepper Morgan MD PCP - General 09/16/16 Hank Garibay MD [address] [facility] [address] WARNER [place] [facility] [address] [place] [address] Surgeon Orthopedic Surgery 03/27/17 Jacky Murry MD [address] [facility] [address] WARN[place] [facility] [address] [place] [address] Ophthalmology 03/27/17 Puma Mckenzie MD [address] [facility] [address] WARNER [place] [facility] [address] [place] [address] Surgeon Orthopedic Surgery 07/11/19 Neha Jackson, PT Physical Therapist Physical Therapy 12/01/21 Stalin Arauz MD [address] [facility] [address] [place] [address] Consulting Physician Cardiology 12/08/22 Tiffany Rojas PA [address] [facility] [address] [place] [address] Gastroenterology 12/30/22 Klaus Deshpande MD [address] [facility] [address] [place] [address] Consulting Physician Neurology 06/13/23 documented as of this encounter
--- OUTSIDE RECORDS SUMMARY | 2024-06-18 18:50 | XMS_ITS | Encounter Summary ---
Author Organization [facility] Healthcare Address [address] [place] [address] Care Team Providers Care Aerospace Medicine Physician Name Role Phone Pepper Morgan MD Primary Care Provider + [phone] Hakn Garibay MD Unavailable [phone] Jacky Murry MD Unavailable [phone] Puma Mckenzie MD Unavailable [phone] Neha Jackson PT Unavailable Unavailable Stalin Arauz MD Unavailable [phone] Tiffany Rojas Unavailable [phone] Klaus Deshpande MD Unavailable [phone] Encounter Details Date Type Department Care Team (Late st Contact Info) Description 07/25/[address] [place] [phone] Phylicia Hitchcock RN Social History Tobacco Use Types Packs/Day Years Used Date Smoking Tobacco: Former Cigarettes 2 30 - 1981 Smokeless Tobacco: Never Alcohol Use Standard Drinks/Week Comments Not Currently 0 (1 standard drink = 0.6 oz pur e alcohol) [facility] Utilities Answer Date Recorded In the past 12 months has [employer], gas, oil, or water [employer] threatened to shut off services in your [...] often do you attend chur ch or evangelical services? Never 07/24/2023 Do you belong to [...] on file Legal Sex Female 4:33 AM FAMILY READINESS SUPPORT ASSISTANT Gender Identity Not on file Sexual Orientation Not on file Occupation Industry Job Start Date Job End Date retired Not on file Not on file Not on file documented as of this encounter Miscellaneous Notes * Telephone Encounter - Phylicia Hitchcock RN - 07/25/2023 4:11 PM FAMILY READINESS SUPPORT ASSISTANT Patient called regarding missed appointment. Patient stated she was in the hospital and was discharged today. Patient stated she received dose of venofer in the hospital and would only need to schedule two infusions. Appointments were rescheduled and patient verbalized understanding. LY READINESS SUPPORT ASSISTANT documented in this encounter Plan of [...] on filedocumented in this encounter Care Teams Aerospace Medicine Physician Relationship Specialty Start Date End Date Pepper Morgan MD PCP - General 09/16/16 Hank Garibay MD [address] [facility] [address] [place] [facility] [address] [place] [address] Surgeon Orthopedic Surgery 03/27/17 Jacky Murry MD [address] [facility] [address] WARN[address] [place] [facility] [address] [place] [address] Ophthalmology 03/27/17 Puma Mckenzie MD [address] [facility] [address] WARN[address] [place] [facility] [address] [place] [address] Surgeon Orthopedic Surgery 07/11/19 Neha Jackson, PT Physical Therapist Physical Therapy 12/01/21 Stalin Arauz MD [address] [facility] [address] [place] [address] Consulting Physician Cardiology 12/08/22 Tiffany Rojas PA [address] [facility] [address] [place] [address] Gastroenterology 12/30/22 Klaus Deshpande MD [address] [facility] [address] [place] [address] Consulting Physician Neurology 06/13/23 documented as of this encounter
--- OUTSIDE RECORDS SUMMARY | 2024-06-18 18:50 | XMS_ITS | Encounter Summary ---
Author Organization [facility] Healthcare Address [address] [place] [address] Care Team Providers Care Molded Goods Operator Name Role Phone Pepper Morgan MD Primary Care Provider + [phone] Hank Garibay MD Unavailable [phone] Jacky Murry MD Unavailable [phone] Puma Mckenzie MD Unavailable [phone] Neha Jackson PT Unavailable Unavailable Stalin Arauz MD Unavailable [phone] Tiffany Rojas Unavailable [phone] Klaus Deshpande MD Unavailable [phone] Encounter Details Date Type Department Care Team (Late st Contact Info) Description 08/10/2023 10:45 AM ENGINE BOSS Lab [address] Microcytic anemia; Tiredness Social History Tobacco Use Types Packs/Day Years Used Date Smoking Tobacco: Former Cigarettes 2 30 1 952 - 1981 Smokeless Tobacco: Never Alcohol Use Standard Drinks/Week Comments Not Currently 0 (1 standard drink = 0.6 oz pur e alcohol) [facility] Utilities Answer Date Recorded In the past 12 months has [employer] electric, gas, oil, or water company threatened [...] often do you attend chur ch or restorationist services? Never 07/24/2023 Do you belong to [...] place to sleep or slept in a long-term (including now)? No 07/24/2023 Personal Safety Answer Date Recorded Have you ever been in or are you currently in a harmful physical or emotional relationship or is someone making you feel afraid or unsafe? Denies 07/22/2023 Comments No Sex and Gender Information Value Date Recorded Sex Assigned at Not on file Legal Sex Female 4:33 AM ENGINE BOSS Gender Identity Not on file Sexual [...] Procedure Name Priority Date/Time Associated Diagnosis Comments VITAMIN B12 Routine 08/10/2023 10:56 AM ENGINE BOSS Microcytic anemia Tiredness documented in this encounter Results * Vitamin B12 (08/10/2023 10:56 AM ENGINE BOSS) Vitamin B12 723 230 - 1,250 pg/mL [facility] Blood 08/10/2023 10:5 6 AM ENGINE BOSS 08/10/2023 1:29 PM ENGINE BOSS us Pepper Morgan MD LAB BLOOD ORDERABLES Final Result [facility] ([place]) 1 [facility] Department [place] [address] documented in this encounter Visit Diagnoses Diagnosis Microcytic anemia Unspecified iron deficiency anemia Tiredness Other malaise and fatigue documented in this encounter Care Teams Molded Goods Operator Relationship Specialty Start Date End Date Pepper Morgan MD PCP - General 09/16/16 Hank Garibay MD [address] [facility] [address] [place] [address] Surgeon Orthopedic Surgery 03/27/17 Jacky Murry MD [address] [facility] [address] [place] [address] Ophthalmology 03/27/17 Puma Mckenzie MD [address] [facility] [address] [place] [address] Surgeon Orthopedic Surgery 07/11/19 Neha Jackson, PT Physical Therapist Physical Therapy 12/01/21 Stalin Arauz MD [address] [facility] [address] [place] [address] Consulting Physician Cardiology 12/08/22 Tiffany Rojas PA [address] [facility] [address] [place] [address] Gastroenterology 12/30/22 Klaus Deshpande MD [address] [facility] [address] [place] [address] Consulting Physician Neurology 06/13/23 documented as of this encounter
--- OUTSIDE RECORDS SUMMARY | 2024-06-18 18:51 | XMS_ITS | Encounter Summary ---
Author Organization [facility] Address [address] [place] [address] Care Team Providers Care Ticket Broker Name Role Phone Pepper Morgan MD Primary Care Provider [phone] Hank Garibay MD Unavailable [phone] Jacky Murry MD Unavailable [phone] Puma Mckenzie MD Unavailable [phone] Neha Jackson PT Unavailable Unavailable Stalin Arauz MD Unavailable [phone] Tiffany Rojas Unavailable [phone] Klaus Deshpande MD Unavailable [phone] Encounter Details Date Type Department Care Team (Late st Contact Info) Description 07/19/2023 Telephone [facility] [address] [facility] [address] [place] [address] Pepper Morgan MD [address] [place] [address] Social History Tobacco Use Types Packs/Day Years [...] attend chur ch or orthodox services? Never 12/29/2022 Do you belong to any clubs o r organizations such as adventist groups, unions, fraternal or athletic groups, or [...] slept in a long-term (including now)? No 12/29/2022 Personal Safety Answer Date Recorded Getting School Help Needed Denies 05/29 Comments No Sex and Gender Information Value Date Recorded Sex Assigned at Not on file Legal Sex Female 4:33 AM FRUIT BAR MAKER Gender Identity Not on file Sexual Orientation Not on file Occupation Industry Job Start Date Job End Date retired Not on file Not on file Not on file documented as of this encounter Miscellaneous Notes * Telephone Encounter - Hugh Parkinson RN - 07/19/2023 2:35 PM FRUIT BAR MAKER Patient was called to schedule appointment for iron infusion. Phone rang several times and was redirected to answering machine. Message left on machine with callback number. T BAR MAKER documented in this encounter Plan of Treatment [...] on filedocumented in this encounter Care Teams Ticket Broker Relationship Specialty Start Date End Date Pepper Morgan MD PCP - General 09/16/16 Hank Garibay MD [address] [place] [address] [place] [address] Surgeon Orthopedic Surgery 03/27/17 Jacky Murry MD [address] [facility] [address] [place] [address] Ophthalmology 03/27/17 Puma Mckenzie MD [address] [facility] [address] [place] [address] Surgeon Orthopedic Surgery 07/11/19 Neha Jackson, PT Physical Therapist Physical Therapy 12/01/21 Stailn Arauz MD [address] [facility] [address] [place] [address] Consulting Physician Cardiology 12/08/22 Tiffany Rojas PA [address] [facility] [address] [place] [address] Gastroenterology 12/30/22 Klaus Deshpande MD [address] [facility] [address] [place] [address] Consulting Physician Neurology 06/13/23 documented as of this encounter
--- OUTSIDE RECORDS SUMMARY | 2024-06-18 18:51 | XMS_ITS | Encounter Summary ---
Author Organization [facility] Address [address] [place] [address] Care Team Providers Care Automat Watcher Name Role Phone Pepper Morgan MD Primary Care Provider + [phone] Hank Garibay MD Unavailable [phone] Jacky Murry MD Unavailable [phone] Puma Mckenzie MD Unavailable [phone] Neha Jackson PT Unavailable Unavailable [place] Arauz MD Unavailable [phone] Tiffany Rojas Unavailable [phone] Klaus Deshpande MD Unavailable [phone] Encounter Details Date Type Department Care Team (Late st Contact Info) Description 06/14/2023 Telephone [place] [facility] Mechanic at [address] [place] [phone] Hai Dalton MA Social History Tobacco Use [...] attend chur ch or church services? Never 12/29/2022 Do you belong to any clubs o r organizations such as baptism groups, unions, fraternal or athletic groups, or [...] more points, staff should administer the PHQ-9) 0 12/30/2022 Hunger Vital Sign Answer Date Recorded Within [...] slept in a jail (including now)? No 12/29/2022 Personal Safety Answer Date Recorded Getting School Help Needed Denies 05/29 Comments No Sex and Gender Information Value Date Recorded Sex Assigned at Not on file Legal Sex Female 4:33 AM ADMINISTRATIVE SERVICES COORDINATOR Gender Identity Not on file Sexual Orientation Not on file Occupation Industry Job Start Date Job End Date retired Not on file Not on file Not on file documented as of this encounter Miscellaneous Notes * Telephone Encounter - Hai Dalton MA - 06/15/2023 9:07 AM CST Patients daughter called to let you know Tess has been admitted to [facility]. NISTRATIVE SERVICES COORDINATOR * Telephone Encounter - Hai Dalton MA - 06/14/2023 10:25 AM CST Patient advised NISTRATIVE SERVICES COORDINATOR * Telephone Encounter - Hai Dalton MA - 06/14/2023 9:47 AM CST Patient called this morning with concern about her BP being 97/46 after taking meds. She states sheis having SOB and needed to use inhaler in the middle of the night. Below is part of ov note from her PCP's office regarding medications. Please review and advise 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 Assessment & Plan: BP soft but stable in office today [...] repeat BMP and BnP in 2 days. NISTRATIVE SERVICES COORDINATOR documented in this encounter Plan of Treatment [...] Diagnoses Not on filedocumented in this encounter Additional Health Concerns Infection Onset Date Last Indicated Resolved Time COVID: Suspected 06/14/2023 06/14/2023 06/14/2023 6:44 PM ADMINISTRATIVE SERVICES COORDINATOR documented as of this encounter Care Teams Automat Watcher Relationship Specialty Start Date End Date Pepper Morgan MD PCP - General 09/16/16 Hank Garibay MD [address] [facility] [address] [place] [address] Surgeon Orthopedic Surgery 03/27/17 Jacky Murry MD [address] [facility] [address] [place] [address] Ophthalmology 03/27/17 Puma Mckenzie MD [address] [facility] [address] [place] [address] Surgeon Orthopedic Surgery 07/11/19 Neha Jackson, KEVIN Physical Therapist Physical Therapy 12/01/21 Stalin Arauz MD [address] [facility] [address] [place] [address] Consulting Physician Cardiology 12/08/22 Tiffany Rojas PA [address] [facility] [address] [place] [address] Gastroenterology 12/30/22 Klaus Deshpande MD [address] [facility] [address] [place] [address] Consulting Physician Neurology 06/13/23 documented as of this encounter
--- OUTSIDE RECORDS SUMMARY | 2024-06-18 18:51 | XMS_ITS | Encounter Summary ---
Author Organization [facility] Address [address] [place] [address] Care Team Providers Care Overedger Name Role Phone Pepper Morgan MD Primary Care Provider [phone] Hank Garibay MD Unavailable [phone] Jacky Murry MD Unavailable [phone] Puma Mckenzie MD Unavailable [phone] Neha Jackson PT Unavailable Unavailable Stalin Arauz MD Unavailable [phone] Tiffany Rojas Unavailable [phone] Reason for Visit * Reason Onset Date Comments Shortness of Breath 06/08/2023 Encounter Details Date Type Department Care Team (Late st Contact Info) Description 06/08/2023 Telephone [facility] [address] [place] [place] [id number] Pepper Morgan MD [address] [place] [address] Shortness of Breath Social History Tobacco Use Types Packs/Day Years [...] attend chur ch or pentecostal services? Never 12/29/2022 Do you belong to [...] in a senior living (including now)? No 12/29/2022 Personal Safety Answer Date Recorded Getting School Help Needed Denies 05/29 Comments No Sex and Gender Information Value Date Recorded Sex Assigned at Not on file Legal Sex Female 4:33 AM FARM RANCHER Gender Identity Not on file Sexual Orientation Not on file Occupation Industry Job Start Date Job End Date retired Not on file Not on file Not on file documented as of this encounter Miscellaneous Notes * Telephone Encounter - Katy Lopes RN - 06/08/2023 9:09 AM FARM RANCHER TOKMS: Called patient regarding sob. She said she had sob yesterday evening and this has been having this happening more frequently in the evening. Her daughter wanted her to go the hospital and she would not go. Her BP at urologist office was 106/53 and 103/52. Patient said she has increased her fluids and had some things with salt to help with the BP. BP 114/72 today. Patient held her felodipine this am. Denied any chest pain or sob at this time. Patient does not have O2 sat and was encouraged to buy one to monitor her O2. She voiced understanding. Patient was encouraged to monitor BP and write the readings down. Advised patient to use her judgement about taking her felodipine depending on her BP readings and she voiced understanding. Encouraged to increase fluids. Advised to go to ER if symptoms worsen with sob or low BP. She voiced understanding. Also advised f/u appt next week with CALCULATION CLERK and she agreed. Patient advised to bring BP cuff and readings. Please advise on any further recommendations RANCHER * Telephone Encounter - Anna Vargas - 06/08/2023 8:12 AM CST Pt is having SOB and daughter called an ambulance yesterday and she wouldn't go to the hospital. PTwent to urologist and blood pressure was 106/53 and then 103/52. Pt didn't take felodipine today. Pt is drinking more fluid. CBN: [id number] Pharm: CV in [facility] in [place] RANCHER documented in this encounter Plan of Treatment [...] on filedocumented in this encounter Care Teams Overedger Relationship Specialty Start Date End Date Pepper Morgan MD PCP - General 09/16/16 Hank Garibay MD [address] [facility] [address] [facility] [address] [place] [address] Surgeon Orthopedic Surgery 03/27/17 Jacky Murry MD [address] [facility] [address] [facility] [address] [place] [address] Ophthalmology 03/27/17 Puma Mckenzie MD [address] [facility] [address] [place] [address] Surgeon Orthopedic Surgery 07/11/19 Neha Jackson, PT Physical Therapist Physical Therapy 12/01/21 Stalin Arauz MD [address] [facility] [address] [place] [address] Consulting Physician Cardiology 12/08/22 Tiffany Rojas PA [address] [facility] [place] [address] Gastroenterology 12/30/22 documented as of this encounter
--- OUTSIDE RECORDS SUMMARY | 2024-06-18 18:51 | XMS_ITS | Encounter Summary ---
Author Organization [facility] Address [address] [place] [address] Care Team Providers Care Room Manager Name Role Phone Pepper Morgan MD Primary Care Provider + [phone] Hank Garibay MD Unavailable [phone] Jacky Murry MD Unavailable [phone] Puma Mckenzie MD Unavailable [phone] Neha Jackson PT Unavailable Unavailable Stalin Arauz MD Unavailable [phone] Tiffany Rojas Unavailable [phone] Klaus Deshpande MD Unavailable [phone] Encounter Details Date Type Department Care Team (Late st Contact Info) Description 06/13/2023 Orders Only [place] Casting Room Operator at [address] [place] [address] Stalin Arauz MD [address] [place] [address] [address] [place] [address] Chronic heart failure with preserved [...] often do you attend chur ch or muslim services? Never 12/29/2022 Do you belong to [...] in a senior care (including now)? No 12/29/2022 Personal Safety Answer Date Recorded Getting School Help Needed Denies 05/29 Comments No Sex and Gender Information Value Date Recorded Sex Assigned at Not on file Legal Sex Female 4:33 AM FIELD SEISMOLOGIST Gender Identity Not on file Sexual Orientation [...] Results * (ABNORMAL) Pro B-type natriuretic peptide (07/05/2023 11:23 AM FIELD SEISMOLOGIST) NT-proBNP 3,478(H) <=450 pg/mL [facility] ([place]) Comment: Interpretive [...] Interpretive Data Last Revised Date: 2018. Blood 07/05/2023 11:2 3 AM FIELD SEISMOLOGIST 07/05/2023 12:18 PM FIELD SEISMOLOGIST us Stalin Arauz MD LAB BLOOD ORDERABLES Final Resu lt [facility] [place]) 1 [facility] [place] [address] documented in this encounter Visit Diagnoses Diagnosis Chronic heart failure with preserved ejection fraction (CMS/HCC) (HCC)- Primary documented in this encounter Care Teams Room Manager Relationship Specialty Start Date End Date Pepper Morgan MD PCP - General 3/31/17 Hank Garibay MD [address] [facility] [address] [place] [address] Surgeon Orthopedic Surgery 03/27/17 Jacky Murry MD [address] [facility] [address] [facility] [address] [place] [address] Ophthalmology 03/27/17 Puma Mckenzie MD [address] [facility] [address] [facility] [address] [place] [address] Surgeon Orthopedic Surgery 07/11/19 Neha Jackson, PT Physical Therapist Physical Therapy 12/01/21 Stalin Arauz MD [address] [facility] [address] [place] [address] Consulting Physician Cardiology 12/08/22 Tiffany Rojas PA [address] [facility] [address] [place] [address] Gastroenterology 12/30/22 Klaus Deshpande MD [address] [facility] [address] [place] [address] Consulting Physician Neurology 06/13/23 documented as of this encounter
--- OUTSIDE RECORDS SUMMARY | 2024-06-18 18:51 | XMS_ITS | Encounter Summary ---
Author Organization [facility] Address [address] [place] [address] Care Team Providers Care Furniture Sales Associate Name Role Phone Pepper Morgan MD Primary Care Provider [phone]- [phone] Hank Garibay MD Unavailable [phone] Jacky Murry MD Unavailable [phone] Puma Mckenzie MD Unavailable [phone] Neha Jackson PT Unavailable Unavailable Stalin Arauz MD Unavailable [phone] Tiffany Rojas Unavailable [phone] Klaus Deshpande MD Unavailable [phone] Reason for Visit * Reason Comments Annual Exam Encounter Details Date Type Department Care Team (Late st Contact Info) Description 07/13/2023 9:20 AM INCIDENT RESPONSE SPECIALIST Office Visit [facility] [address] [place] [phone] Pepper Morgan MD [address] [place] [id number] Annual physical exam (Primary Dx); Microcytic anemia; Peripheral arterial disease (HCC); Acute on chronic systolic and diastolic heart failure, NYHA class 3 (CMS/HCC) (HCC); Ischemic heart 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 Never 12/29/2022 Do you belong to any clubs o r organizations such as restorationism groups, unions, fraternal or athletic groups, or [...] slept in a retirement (including now)? No 12/29/2022 Personal Safety Answer Date Recorded Have you ever been in or are you currently in a harmful physical or emotional relationship or is someone making you feel afraid or unsafe? Denies 07/22/2023 Comments No Sex and Gender Information Value Date Recorded Sex Assigned at Not on file Legal Sex Female 4:33 AM INCIDENT RESPONSE SPECIALIST Gender Identity Not on file Sexual Orientation Not on file Occupation Industry Job Start Date Job End Date retired Not on file Not on file Not on file documented as of this encounter Last Filed Vital Signs Vital Sign Reading Time Taken Comments Blood Pressure 100/60 07/13/2023 9:34 AM INCIDENT RESPONSE SPECIALIST Pulse 81 07/13/2023 9:34 AM INCIDENT RESPONSE SPECIALIST Temperature 36.2 ??C (97.1 ??F) 07/13/2023 9:34 AM CS T Respiratory Rate 20 07/13/2023 9:34 AM INCIDENT RESPONSE SPECIALIST Oxygen Saturation 99% 07/13/2023 9:34 AM INCIDENT RESPONSE SPECIALIST Inhaled Oxygen Concentration - - Weight 88.5 kg (195 lb) 07/13/2023 9:34 AM INCIDENT RESPONSE SPECIALIST Height 157.5 cm (5' 2 ) 07/13/2023 9:34 AM INCIDENT RESPONSE SPECIALIST Body Mass Index 35.67 07/13/2023 9:34 AM INCIDENT RESPONSE SPECIALIST documented in this encounter Patient Instructions * Patient Instructions* Pepper Morgan MD - 07/13/2023 9:20 AM INCIDENT RESPONSE SPECIALIST ORDERS FOR AMS STAFF TO ARRANGE: 1. Labs for next Monday along with those with Dr. Arauz : Also send copy to Dr. Arauz = CBC, iron profile, B12, MMA , free T4, TSH, vitamin-D level = microcytic anemia , tiredness RECOMMENDATIONS FOR Tess Benedict TO CONSIDER: I recommend [email or web address] = the Attributor library of medicine online site. This is a consistently reliable site for your personal medical research. Please Review your AVS for accuracy & contact me if you find need for changes. IMMUNIZATIONS recommendations for shots to GET NOW Flu shot --this is usually best to start getting in early March ------- RSV vaccine --this is given once for all persons 60 and over PLANNING FOR possible COVID INFECTIONS Be certain [...] with COVID-19. This will require transportation to [facility] daily for 3 days to complete your [...] evaluated immediately if you have these symptoms. MICROCYTIC ANEMIA IS A BIG PROBLEM TODAY. THIS MAY BE CAUSING THE TIREDNESS. I AM SUSPICIOUS YOU ARE LOSING BLOOD FROM THE BOWELS. I understand that you are not interested in upper endoscopy and colonoscopy and have not been for many years. Laboratory test will tell if we need to iron or B12 replacement and I will call you. If you have worse symptoms have the doctors check your blood counts and treat the anemia. You are welcome to contact me sooner to come back sooner than six-month if you are having further trouble that is not figured out by Dr. Arauz DENT RESPONSE SPECIALIST DENT RESPONSE SPECIALIST DENT RESPONSE SPECIALIST DENT RESPONSE SPECIALIST DENT RESPONSE SPECIALIST documented in this encounter Ordered Prescriptions Prescription Sig Dispense Quantity Refills Last Filled Start Date End Date felodipine (PLENDIL) 5 mg 24 hr tablet Take 1 tablet (5 mg total) by mouth daily 90 tablet 2 07/13/2023 07/25/2023 carvediloL (COREG) 6.25 mg tablet Take 1 tablet (6.25 mg total) by mouth 2 (two) times a day with meals 180 tablet 2 07/13/2023 07/20/2023 propranoloL (INDERAL) 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: Hereditary essential tremor Take 1 tablet (20 mg total) by mouth 2 (two) times a day as needed (Tremor) 180 tablet 2 07/13/2023 03/15/[address] (PROTONIX) 40 mg EC tabletIndications: Treatment of Non-Bleeding Gastric Disorder Take 1 tablet (40 mg total) by mouth daily 90 tablet 2 07/13/2023 01/11/2024 documented in this encounter Progress Notes * Pepper Morgan MD - 07/13/2023 9:20 AM CST Images from the original note were not included. Patient ID: Tess Benedict is a 87 y.o. female. ORDERS SUCCESSFULLY PLACED BY CLERICAL STAFF before note was signed Orders Placed This Encounter Procedures CBC with auto differential Iron profile w/ IBC Methylmalonic acid, serum T4, free TSH Vitamin D 25 hydroxy Chief Complaint. Chief Complaint Patient presents with Annual Exam HPI. DIFFERENTIAL DIAGNOSIS with DISCUSSION ASSESSMENT AND PLAN Patient is a 87 y.o. female 1. Annual physical exam The annual examination: specifics of the testing and counseling are recorded on the scanned Comprehensive Yearly Physical Exam Worksheet. and scanned into Epic today The non- annual associated medical care required and additional 47 minutes. 2. Microcytic anemia She is microcytic anemia. She was afraid she had anemia but has not been evaluated for this problem. She is previously declined evaluation. She did not want have rectal examination today. She did agree to labs and replacement of iron and B12 if necessary. She is already taking Protonix for upper GIsource of blood loss. Her decision is consistent with that made in [facility]* as of December 2023 and reconfirmed todayCRP is elevated; She denies any history of previous EGD or colonoscopy and reports that she is uninterested in scopes at this time. She denies any known family history of colon cancer or IBD. Plavix and Xarelto are currently being held. She is on 40 mg Protonix daily for GI prophylaxis. pantoprazole DR (PROTONIX) 40 mg EC tablet; Take 1 tablet (40 mg total) by mouth daily Dispense: 90tablet; Refill: 2 3. Peripheral arterial disease (HCC) Severe PAD with no evidence of palpable pulses on either feet today. She follows with For nail trimming which is absolutely essential. She follows with Dr. Arauz and can not have access distance.There is no acute ischemia on the feet today. 4. Acute on chronic systolic and diastolic heart failure, NYHA class 3 (CMS/HCC) (HCC) 5. Ischemic heart disease due to coronary artery obstruction (CMS/HCC) (HCC) 6. Hypertension complicating diabetes (HCC) Appropriately on diuretic and Jardiance under the care Dr. Arauz, I do not see the anybody has refilled her carvedilol which I did send in today. The combination of medications would be Aldactone, Entresto, Jardiance, beta-paul as tolerated 7. Atrial fibrillation, chronic (CMS/HCC) (HCC) On long-term Xarelto. Dosage according to her kidney function was to be followed by my office leasttwice yearly if not already done by Dr. Arauz 8. Chronic GERD Symptom-free pantoprazole DR (PROTONIX) 40 mg EC tablet; Take 1 tablet (40 mg total) by mouth daily Dispense: 90tablet; Refill: 2 9. Chronic pain disorder 10. Spinal stenosis of lumbar region with neurogenic claudication 11. Restless legs syndrome She decided the the gabapentin 300 mg nightly just making her tired and she wants to stop the pill.She is following with Dr. Slade who is helping with the tremor and she is better using propranolol and Mirapex. The gabapentin is discontinued today 12. Hereditary essential tremor This is much better on exam today propranoloL (INDERAL) 20 mg tablet; Take 1 tablet (20 mg total) by mouth 2 (two) times a day as needed (Tremor) Dispense: 180 tablet; Refill: 2 13. Immunization counseling Vaccine counseling - Influenza and COVID planning: Immunization reviewed with updated recommendations outlined on the AVS along with COVID and influenza planning guidelines CURRENT MEDICATIONS: Outpatient Encounter Medications as of 07/13/2023 Medication Sig Dispense Refill albuterol HFA (Proventil [...] tablets (5 mg total) by mouth daily polyethylene glycol (MIRALAX) 17 gram packet Take 1 packet (17 g total) by mouth daily as needed for constipation pramipexole (MIRAPEX) 0.5 mg tablet Take 1 tablet (0.5 mg total) by mouth 2 (two) times a day 60 tablet 3 rivaroxaban (XARELTO) 20 mg tablet Take 1 tablet (20 mg total) by mouth daily (Patient taking differently: Take 1 tablet (20 mg total) by mouth daily with lunch) 30 tablet 11 [DISCONTINUED] carvediloL (COREG) 6.25 mg tablet Take 1 tablet (6.25 mg total) by mouth 2 (two) times a day with meals 60 tablet 0 [DISCONTINUED] felodipine (PLENDIL) 5 mg 24 hr tablet Take 1 tablet (5 mg total) by mouth daily [DISCONTINUED] gabapentin (NEURONTIN) 300 mg capsule Take 1 capsule (300 mg total) by mouth nightly [DISCONTINUED] pantoprazole DR (PROTONIX) 40 mg EC tablet Take 1 tablet (40 mg total) by mouth daily 30 tablet 1 [DISCONTINUED] potassium chloride ER 20 mEq CR tablet Take 1 tablet (20 mEq total) by mouth daily [DISCONTINUED] propranoloL (INDERAL) 20 mg tablet Take 1 tablet (20 mg total) by mouth 2 (two) times a day as needed (Tremor) 180 tablet 2 felodipine (PLENDIL) 5 mg 24 hr tablet Take 1 tablet (5 mg total) by mouth daily [address] (PROTONIX) 40 mg EC tablet Take 1 tablet (40 mg total) by mouth daily 90 tablet 2 propranoloL (INDERAL) 20 mg tablet Take 1 tablet (20 mg total) by mouth 2 (two) times a day as needed (Tremor) 180 tablet 2 [DISCONTINUED] albuterol HFA (Proventil HFA) 90 mcg/actuation inhaler Inhale 2 puffs every 6 (six) hours as needed for wheezing or shortness of breath 6.7 g 0 [DISCONTINUED] budesonide DR/ER (UCERIS) 9 mg tablet, delayed & ext.release Take 1 tablet (9 mgtotal) by mouth daily 30 tablet 0 [DISCONTINUED] carvediloL (COREG) 6.25 mg tablet Take 1 tablet (6.25 mg total) by mouth 2 (two) times a day with meals 180 tablet 2 [DISCONTINUED] clonazePAM (KlonoPIN) 0.25 mg disintegrating tablet Take 1 tablet (0.25 mg total) bymouth 2 (two) times a day as needed (Restless leg) 60 tablet 5 [DISCONTINUED] clonazePAM (KlonoPIN) 0.5 mg tablet Take 1 tablet (0.5 mg total) by mouth nightly 30tablet 5 [DISCONTINUED] clopidogreL (PLAVIX) 75 mg tablet Take 1 tablet (75 mg total) by mouth daily 90 tablet 3 [DISCONTINUED] cyclobenzaprine (FLEXERIL) 10 mg tablet Take 1 tablet (10 mg total) by mouth nightlyas needed for muscle spasms 30 tablet 0 [DISCONTINUED] felodipine (PLENDIL) 5 mg 24 hr tablet Take 1 tablet (5 mg total) by mouth daily 90 tablet 2 [DISCONTINUED] furosemide (LASIX) 40 mg tablet Take 1 tablet (40 mg total) by mouth 2 (two) times aday 180 tablet 3 [DISCONTINUED] metOLazone (ZAROXOLYN) 2.5 mg tablet Take 1 tablet (2.5 mg total) by mouth every other day 45 tablet 3 [DISCONTINUED] ondansetron (ZOFRAN) 4 mg tablet Take 1 tablet (4 mg total) by mouth every 8 (eight)hours as needed for nausea or vomiting (Patient not taking: Reported on 01/09/2023) 20 tablet 0 [DISCONTINUED] pantoprazole DR (PROTONIX) 20 mg EC tablet Take 1 tablet (20 mg total) by mouth daily With the largest meal 90 tablet 2 [DISCONTINUED] potassium chloride ER (KLOR-CON) 20 mEq CR tablet Take 2 tablets (40 mEq total) by mouth 2 (two) times a day (Patient not taking: Reported on 01/09/2023) 120 tablet 11 [DISCONTINUED] pramipexole (MIRAPEX) 0.25 mg tablet Take 1 tablet (0.25 mg total) by mouth 2 (two) times a day 180 tablet 2 [DISCONTINUED] spironolactone (ALDACTONE) 25 mg tablet Take 1 tablet (25 mg total) by mouth 2 (two)times a day 180 tablet 3 [] sodium chloride 0.9% bolus 1,000 mL [] sodium chloride 0.9% bolus 500 mL [DISCONTINUED] sodium chloride 0.9% infusion No facility-administered encounter medications on file as of 07/13/2023. ALLERGIES Allergies Allergen Reactions Celecoxib Anaphylaxis Scopolamine Mental status changes Delirium postop after joint replacement due to this medicine Sulfa (Sulfonamide Antibiotics) Anaphylaxis Amlodipine Swelling Lisinopril Swelling Trazodone Swelling Tongue Cipro [Ciprofloxacin Hcl] Vomiting Cymbalta [Duloxetine] Fatigue Sleepiness, tiredness possibly related to 20 mg morning dose of this medicine discontinued 11/30/2020 Sinemet [Carbidopa-Levodopa] Other (See comments) Night hines REVIEW OF SYSTEMS Review of Systems Constitutional: Positive for activity change and fatigue. Negative for appetite change, fever and unexpected weight change. HENT: Negative [...] pain and vaginal discharge. Musculoskeletal: Negative for arthralgias, gait problem, joint swelling and myalgias. Skin: Negative for color change and rash. Neurological: Negative for dizziness, weakness and headaches. Hematological: Negative for adenopathy. Does not bruise/bleed easily. Psychiatric/Behavioral: Negative for behavioral problems, dysphoric mood and sleep disturbance. Thepatient is not nervous/anxious. VITAL SIGNS BP 100/60 (BP Location: Left arm, Patient Position: Sitting) Pulse 81 Temp 36.2 ??C (97.1 ??F) (Temporal) Resp 20 Ht 157.5 cm (5' 2 ) Wt 88.5 kg (195 lb) LMP (LMP Unknown) SpO2 99% BMI 35.67 kg/m?? Body mass index is 35.67 kg/m??. PHYSICAL EXAMINATION Physical Exam Vitals and nursing note reviewed. Exam conducted with a vice president for philanthropy present (Her POA daughter Marilyn). Constitutional: General: She is not in acute distress. Appearance: Normal appearance. She is well-developed. She is not ill-appearing. HENT: Head: Normocephalic [...] reactive to light. Neck: Thyroid: No thyromegaly. Vascular: No JVD. Cardiovascular: Rate and Rhythm: Normal rate and regular rhythm. Heart sounds: Normal heart sounds. No murmur heard. No friction rub. No gallop. Comments: Absent pulses behindThe bilaterally with no ischemia. Nail care good. knee and in the feet Pulmonary: Effort: Pulmonary effort is normal. No respiratory distress. Breath sounds: Normal breath sounds. No wheezing, rhonchi or rales. Abdominal: General: Bowel sounds are normal. There is no distension. Palpations: Abdomen is soft. There is no splenomegaly or mass. Tenderness: There is no abdominal tenderness. Hernia: No hernia is present. Genitourinary: Exam position: Knee-chest position. Uterus: Not tender. Adnexa: Right: No mass or tenderness. Left: No mass or tenderness. Rectum: Normal. Guaiac result negative. No mass or tenderness. Comments: Breast examination: Bilateral breast examination healthy without mass or axillary adenopathy Pelvic examination and rectal examinations are declined Musculoskeletal: General: Deformity (deformity of the hand unchanged from baseline, arthritic changes bilateral ankles feet come knee replacements well healed.) present. No tenderness. Cervical back: Neck supple. Right lower leg: No edema. Left lower leg: No edema. Lymphadenopathy: Cervical: No cervical adenopathy. Skin: General: Skin is warm and dry. Findings: No erythema, lesion or rash. Neurological: Mental Status: She is alert and oriented to person, place, and time. Mental status is at baseline. Cranial Nerves: No cranial nerve deficit. Sensory: No sensory deficit. Motor: Weakness present. No abnormal muscle tone. Coordination: Coordination normal. Gait: Gait abnormal. Deep Tendon Reflexes: Reflexes abnormal (absent reflexes bilateral knees, 1+ reflex left arm absentright arm). Babinski sign absent on the right side. Babinski sign absent on the left side. Psychiatric: Mood and Affect: Mood normal. Behavior: Behavior normal. Thought Content: Thought content normal. Judgment: Judgment normal. MOST RECENT LABS Lab on 07/11/2023 Component Date Value Sodium [...] 91 Calcium 06/17/2023 9.4 eGFR 06/17/2023 32 Office Visit on 06/07/2023 Component Date Value Color, Urine, POC 06/07/2023 Light Yellow Clarity, ur, POC 06/07/2023 Clear Glucose, ur, POC 06/07/2023 Negative Ketones, ur, POC 06/07/2023 Negative Blood, ur, POC 06/07/2023 Negative pH, ur, POC 06/07/2023 5.0 Protein, ur, POC 06/07/2023 Negative Nitrite, ur, POC 06/07/2023 Negative Leukocytes, ur, POC 06/07/2023 Negative Lot Number 06/07/2023 X Admission on 05/08/2023, Discharged on 05/08/2023 Component Date Value WBC 05/08/2023 11.5 (H) Hgb 05/08/2023 12.0 Hct 05/08/2023 39.5 Plt 05/08/2023 381 MPV 05/08/2023 9.0 (L) RBC 05/08/2023 4.83 MCV 05/08/2023 81.8 MCH 05/08/2023 24.8 (L) MCHC 05/08/2023 30.4 (L) RDW CV 05/08/2023 14.9 RDW SD 05/08/2023 44.8 NRBC abs 05/08/2023 0.00 Sodium 05/08/2023 135 Potassium, pl 05/08/2023 4.3 Chloride 05/08/2023 94 (L) CO2 05/08/2023 31 Anion gap 05/08/2023 10 BUN 05/08/2023 43 (H) Creatinine 05/08/2023 1.25 (H) Glucose 05/08/2023 94 Calcium 05/08/2023 9.2 Color, ur 05/08/2023 Yellow Clarity, ur 05/08/2023 Clear Specific gravity, ur 05/08/2023 1.003 pH, urine 05/08/2023 7.0 Protein, ur ql 05/08/2023 Negative Glucose, ur ql 05/08/2023 1+ (A) Ketones, ur 05/08/2023 Negative Bilirubin, ur 05/08/2023 Negative Blood, ur 05/08/2023 3+ (A) Urobilinogen, ur 05/08/2023 <2.0 Nitrite, ur 05/08/2023 Negative Leukocyte esterase, ur 05/08/2023 3+ (A) UA reflex comment 05/08/2023 Reflex to microscopic UA will be performed. Neutrophil abs 05/08/2023 9.2 (H) Imm gran abs 05/08/2023 0.1 Lymphocyte abs 05/08/2023 0.9 Monocyte abs 05/08/2023 0.9 (H) Eosinophil abs 05/08/2023 0.3 Basophil abs 05/08/2023 0.1 Neutrophil pct 05/08/2023 80.7 Imm gran pct 05/08/2023 0.7 Lymphocyte pct 05/08/2023 7.8 Monocyte pct 05/08/2023 7.6 Eosinophil pct 05/08/2023 2.6 Basophil pct 05/08/2023 0.6 eGFR 05/08/2023 42 WBC, ur 05/08/2023 21-50 (A) RBC, ur 05/08/2023 >50 (A) Epithelial cells, squamo* 05/08/2023 1-5 Bacteria, ur 05/08/2023 Trace (A) Admission on 02/16/2023, Discharged on 02/16/2023 Component Date Value Color, ur 02/16/2023 Red (A) Clarity, ur 02/16/2023 Cloudy (A) Specific gravity, ur 02/16/2023 1.012 pH, urine 02/16/2023 6.0 Protein, ur ql 02/16/2023 3+ (A) Glucose, ur ql 02/16/2023 Negative Ketones, ur 02/16/2023 Trace Bilirubin, ur 02/16/2023 Negative Blood, ur 02/16/2023 2+ (A) Urobilinogen, ur 02/16/2023 <2.0 Nitrite, ur 02/16/2023 Negative Leukocyte esterase, ur 02/16/2023 2+ (A) UA reflex comment 02/16/2023 Reflex to microscopic UA will be performed. WBC 02/16/2023 9.9 Hgb 02/16/2023 14.2 Hct 02/16/2023 45.0 Plt 02/16/2023 340 MPV 02/16/2023 9.0 (L) RBC 02/16/2023 5.34 (H) MCV 02/16/2023 84.3 MCH 02/16/2023 26.6 (L) MCHC 02/16/2023 31.6 (L) RDW CV 02/16/2023 14.5 RDW SD 02/16/2023 44.5 NRBC abs 02/16/2023 0.00 Sodium 02/16/2023 138 Potassium, pl 02/16/2023 3.9 Chloride 02/16/2023 99 CO2 02/16/2023 29 Anion gap 02/16/2023 10 BUN 02/16/2023 49 (H) Creatinine 02/16/2023 1.21 (H) Glucose 02/16/2023 95 Calcium 02/16/2023 9.8 Bilirubin, total 02/16/2023 0.3 Protein, pl 02/16/2023 7.3 Albumin 02/16/2023 3.7 Alk phos 02/16/2023 115 ALT 02/16/2023 9 AST 02/16/2023 17 PT 02/16/2023 18.4 (H) INR 02/16/2023 1.61 (H) Neutrophil abs 02/16/2023 7.6 (H) Imm gran abs 02/16/2023 0.1 Lymphocyte abs 02/16/2023 1.1 Monocyte abs 02/16/2023 0.7 Eosinophil abs 02/16/2023 0.4 Basophil abs 02/16/2023 0.1 Neutrophil pct 02/16/2023 76.8 Imm gran pct 02/16/2023 0.8 Lymphocyte pct 02/16/2023 10.6 Monocyte pct 02/16/2023 7.4 Eosinophil pct 02/16/2023 3.8 Basophil pct 02/16/2023 0.6 WBC, ur 02/16/2023 >50 (A) RBC, ur 02/16/2023 >50 (A) Culture Reflex Comment 02/16/2023 Reflex to urine culture will be performed. Report 02/16/2023 Value:Final Report: Less than 100,000 colonies/mL (clinically insignificant growth based on current clinical standards) Organism 02/16/2023 (CLINICALLY INSIGNIFICANT GROWTH eGFR 02/16/2023 44 NT-proBNP 02/16/2023 2,307 (H) Trop T hs 02/16/2023 19 (H) Trop T hs 02/16/2023 18 (H) Trop T hs delta 02/16/2023 0 Trop T hs interp 02/16/2023 Insignificant Trop T hs 02/16/2023 17 (H) Trop T hs delta 02/16/2023 -1 Trop T hs interp 02/16/2023 Insignificant Influenza A RNA 02/16/2023 Not Detected Influenza B RNA 02/16/2023 Not Detected RSV RNA 02/16/2023 Not Detected COVID-19 RNA 02/16/2023 Not Detected Coronavirus 229E RNA 02/16/2023 Not Detected Coronavirus HKU1 RNA 02/16/2023 Not Detected Coronavirus NL63 RNA 02/16/2023 Not Detected Coronavirus OC43 RNA 02/16/2023 Not Detected Adenovirus DNA 02/16/2023 Not Detected Metapneumovirus RNA 02/16/2023 Not Detected Rhinovirus/Enterovirus R* 02/16/2023 Not Detected Parainfluenza 1 RNA 02/16/2023 Not Detected Parainfluenza 2 RNA 02/16/2023 Not Detected Parainfluenza 3 RNA 02/16/2023 Not Detected Parainfluenza 4 RNA 02/16/2023 Not Detected B. pertussis DNA 02/16/2023 Not Detected B. parapertussis DNA 02/16/2023 Not Detected C. pneumoniae DNA 02/16/2023 Not Detected M. pneumoniae DNA 02/16/2023 Not Detected Hgb 02/16/2023 13.2 Hct 02/16/2023 43.0 Lab on 01/16/2023 Component Date Value NT-proBNP 01/16/2023 2,479 (H) Sodium 01/16/2023 132 (L) Potassium, pl 01/16/2023 3.4 Chloride 01/16/2023 90 (L) CO2 01/16/2023 30 Anion gap 01/16/2023 12 BUN 01/16/2023 71 (H) Creatinine 01/16/2023 1.45 (H) Glucose 01/16/2023 96 Calcium 01/16/2023 9.8 eGFR 01/16/2023 35 ASSESSMENT & PLAN: ICD-9-CM ICD-10-CM 1. Annual physical exam V70.0 Z00.00 2. Microcytic anemia 280.[address] (PROTONIX) 40 mg EC tablet CBC with auto differential Iron profile w/ IBC Methylmalonic acid, serum T4, free TSH 3. Peripheral arterial disease ([facility]) 443.9 I73.9 4. Acute on chronic systolic and diastolic heart failure, NYHA class 3 ([facility]) ([facility]) 428.43 I50.43 5. Ischemic heart disease due to coronary artery obstruction ([facility]) ([facility]) 414.00 I24.0 414.9 I25.9 6. Hypertension complicating diabetes ([facility]) 250.80 E11.59 401.9 I15.2 7. Atrial fibrillation, chronic ([facility]/H[facility]) ([facility]) 427.31 I48.20 8. Chronic GERD 530.[address] (PROTONIX) 40 mg EC tablet 9. Chronic pain disorder 338.4 G89.4 10. Spinal stenosis of lumbar region with neurogenic claudication 724.03 M48.062 11. Restless legs syndrome 333.94 G25.81 12. Hereditary essential tremor 333.1 G25.0 propranoloL (INDERAL) 20 mg tablet 13. Immunization counseling V65.49 Z71.85 14. Tiredness 780.79 R53.83 CBC with auto differential Iron profile w/ IBC Methylmalonic acid, serum T4, free TSH Vitamin D 25 hydroxy 15. Vitamin D deficiency 268.9 E55.9 Vitamin D 25 hydroxy Return in about 6 months (around 01/11/2024) for With Dr. Morgan sooner if problems. Tess Benedict personal health goals were negotiated [...] shared with her in the After Visit Summary = VS. For the annual examination: specifics of the testing and counseling are recorded on the scanned Comprehensive Yearly Physical Exam Worksheet. Pepper Morgan MD DENT RESPONSE SPECIALIST DENT RESPONSE SPECIALIST documented in this encounter Plan of Treatment [...] as of this encounter Results * Vitamin D 25 hydroxy (07/18/2023 10:12 AM INCIDENT RESPONSE SPECIALIST) Vitamin D 25-OH 59 30 - 80 ng/mL CHIDI FANG (HIGINIO) Blood 07/18/2023 10:1 2 AM INCIDENT RESPONSE SPECIALIST 07/18/2023 10:24 AM INCIDENT RESPONSE SPECIALIST us Pepper Morgan MD LAB BLOOD ORDERABLES Final Result CHIDI MOORE) 1 [facility] [place] [address] * TSH (07/18/2023 10:12 AM INCIDENT RESPONSE SPECIALIST) Pathologist [facility] [place] Thyroid Stimulating Hormone 3.48 0.30 - 4.20 mcIUnit/mL [facility] FANG ([place]) Blood 07/18/2023 10:1 2 AM INCIDENT RESPONSE SPECIALIST 07/18/2023 10:24 AM INCIDENT RESPONSE SPECIALIST us Pepper Morgan MD LAB BLOOD ORDERABLES Final Result [facility] [place]) [address] [place] [address] * T4, free (07/18/2023 10:12 AM INCIDENT RESPONSE SPECIALIST) [facility] Free T4 1.30 0.90 - 1.70 ng/dL [facility] ([place]) Blood 07/18/2023 10:1 2 AM INCIDENT RESPONSE SPECIALIST 07/18/2023 10:24 AM INCIDENT RESPONSE SPECIALIST us Pepper Moragn MD LAB BLOOD ORDERABLES Final Result Performing Organization Address City/[facility] Co de Phone Number CHIDI HAMMERN) [address] [place] [address] * (ABNORMAL) Methylmalonic acid, serum (07/18/2023 10:12 AM INCIDENT RESPONSE SPECIALIST) [facility] MMA 0.60(H) <=0.40 nmol/mL [facility] ([place] Comment: In this sample, the concentration of methylmalonic acid (MMA) was minimally elevated. As the upper limit of the reference range varies in different laboratories from 0.4 to 0.6 nmol/mL. This finding could be considered normal, especially if the patient does not show other signs of vitamin B12 deficiency. ADDITIONAL INFORMATION This test was developed and its performance characteristics determined by [facility] in a manner consistent with CLIA requirements. This test has not been cleared or approved by the U.S. Food and Drug Administration. Test Performed by: [facility] - [address] [address] Tester Regulator: Cedric Perry M.D. Ph.D.; CLIA# [id number] Blood 07/18/2023 10:1 2 AM INCIDENT RESPONSE SPECIALIST 07/18/2023 10:24 AM INCIDENT RESPONSE SPECIALIST Pepper Morgan MD LAB BLOOD ORDERABLES Final Result Performing Organization Address City/[facility]/ZIP Co de Phone Number [facility] ([place]) [address] [place] [address] * (ABNORMAL) Iron profile w/ IBC (07/18/2023 10:12 AM INCIDENT RESPONSE SPECIALIST) Iron 23(L) 35 - 145 mcg/dL [facility] ([place]) TIBC 399 250 - 400 mcg/dL [facility] ([place]) Transferrin saturation 6(L) 20 - 50 % [facility] ([place]) Blood 07/18/2023 10:1 2 AM INCIDENT RESPONSE SPECIALIST 07/18/2023 10:24 AM INCIDENT RESPONSE SPECIALIST Pepper Morgan MD LAB BLOOD ORDERABLES Final Result Performing Organization Address [facility]/ZIP Co de Phone Number [facility] ([place]) 1 [facility] [place] [address] * (ABNORMAL) CBC with auto differential (07/18/2023 10:12 AM INCIDENT RESPONSE SPECIALIST) WBC 7.8 3.8 - 9.9 K/cumm [facility] ([place]) Hgb 8.3(L) 11.9 - 15.5 g/dL [facility] ([place]) Hct 28.4(L) 35.6 - 45.5 % [facility] ([place]) Plt 317 150 - 400 K/cumm [facility] ([place]) MPV 9.2 9.1 - 12.3 fL [facility] ([place]) RBC 3.84(L) 3.90 - 5.20 M/cumm [facility] ([place]) MCV 74.0(L) 81.3 - 96.4 fL [facility] ([place]) MCH 21.6(L) 27.1 - 33.3 pg [facility] ([place]) MCHC 29.2(L) 32.3 - 35.7 g/dL [facility] ([place]) RDW CV 17.3(H) 11.1 - 14.9 % [facility] ([place]) RDW SD 46.1 35.7 - 48.1 fL [facility] ([place]) NRBC abs 0.00 0.00 - 0.01 K/cumm [facility] ([place]) Blood 07/18/2023 10:1 2 AM INCIDENT RESPONSE SPECIALIST 07/18/2023 10:24 AM INCIDENT RESPONSE SPECIALIST us Pepper Morgan MD LAB BLOOD ORDERABLES Final Result [facility] ([place]) 1 [facility] [place] [address] documented in this encounter Visit Diagnoses Diagnosis Annual physical exam- Primary Routine general medical examination at a health care facility Microcytic anemia Unspecified iron deficiency anemia Peripheral arterial disease (HCC) Unspecified peripheral vascular disease Acute on chronic systolic and diastolic heart failure, NYHA class 3 (CMS/HCC) (HCC) Ischemic heart disease due to coronary artery obstruction (CMS/HCC) (HCC) Hypertension complicating diabetes (HCC) Atrial fibrillation, chronic (CMS/HCC) (HCC) Chronic GERD Chronic pain disorder Chronic pain syndrome Spinal stenosis of lumbar region with neurogenic claudication Restless legs syndrome Restless legs syndrome (RLS) Hereditary essential tremor Essential and other specified forms of tremor Immunization counseling Tiredness Other malaise and fatigue Vitamin D deficiency documented in this encounter Discontinued Medications Medication Sig Discontinue Reason Start Date End Da te predniSONE (DELTASONE) 20 mg tablet Take 1 tablet (20 mg) by mouth 2 (two) times a day For 3 days, then 20mg PO daily for 3 days, then 10mg PO daily for 3 days, then stop. Therapy completed 06/26/2023 07/13/2023 gabapentin (NEURONTIN) 300 mg capsuleIndications:Restl ess legs syndrome Take 1 capsule (300 mg total) by mouth nightly Therapy completed 06/17/2023 07/13/2023 propranoloL (INDERAL) 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:Heredi tary essential tremor Take 1 tablet (20 mg total) by mouth 2 (two) times a day as needed (Tremor) Reorder 12/08/2022 07/13/2023 carvediloL (COREG) 6.25 mg tablet Take 1 tablet (6.25 mg total) by mouth 2 (two) times a day with meals Reorder 06/17/2023 07/13/[address] (PROTONIX) 40 mg EC tabletIndications:Treatm ent of Non-Bleeding Gastric Disorder Take 1 tablet (40 mg total) by mouth daily Reorder 06/20/2023 07/13/2023 felodipine (PLENDIL) 5 mg 24 hr tablet Take 1 tablet (5 mg total) by mouth daily Reorder 07/13/2023 documented as of this encounter Historical Medications * This list may reflect changes made after this encounter. felodipine (PLENDIL) 5 mg 24 hr tablet Take 1 tablet (5 mg total) by mouth daily 07/13/2023 added in this encounter Care Teams Furniture Sales Associate Relationship Specialty Start Date End Date Pepper Morgan MD PCP - General 09/16/16 Hank Garibay MD 4 [facility] [address] [place] [address] Surgeon Orthopedic Surgery 03/27/17 Jacky Murry MD 4 [facility] [address] [place] [address] Ophthalmology 03/27/17 Puma Mckenzie MD 4 [facility] [address] [place] [address] Surgeon Orthopedic Surgery 07/11/19 Neha Jackson, PT Physical Therapist Physical Therapy 12/01/21 Stalin Arauz MD 2 [facility] [address] [place] [address] Consulting Physician Cardiology 12/08/22 Tiffany Rojas PA 4 [facility] [address] [place] [address] Gastroenterology 12/30/22 Klaus Deshpande MD 4 [facility] [address] [place] [address] Consulting Physician Neurology 06/13/23 documented as of this encounter
--- OUTSIDE RECORDS SUMMARY | 2024-06-18 18:51 | XMS_ITS | Encounter Summary ---
Author Organization [facility] Address [address] [place] [address] Care Team Providers Care Oven Operator Name Role Phone Pepper Morgan MD Primary Care Provider + [phone] Hank Garibay MD Unavailable [phone] Jacky Murry MD Unavailable [phone] Puma Mckenzie MD Unavailable [phone] Neha Jackson PT Unavailable Unavailable Stalin Arauz MD Unavailable [phone] Tiffany Rojas Unavailable [phone] Klaus Deshpande MD Unavailable [phone] Encounter Details Date Type Department Care Team (Late st Contact Info) Description 06/27/2023 Orders Only [place] Lead Designer at [address] [place] [address] Maude Harris, NOEL [address] [place] [address] [address] [place] [address] Chronic heart failure with preserved [...] slept in a correction (including now)? No 12/29/2022 Personal Safety Answer Date Recorded Getting School Help Needed Denies 05/29 Comments No Sex and Gender Information Value Date Recorded Sex Assigned at Not on file Legal Sex Female 4:33 AM GRANITE COUNTERTOP INSTALLER Gender Identity Not on file Sexual Orientation [...] as of this encounter Results * (ABNORMAL) Basic metabolic panel (06/30/2023 8:58 AM GRANITE COUNTERTOP INSTALLER) Sodium 133(L) 135 - 145 mmol/L [facility] ([place]) Potassium, pl 2.7(C) 3.3 - 4.9 mmol/L [facility] ([place]) Comment:Critical Result call ed by [email or web address] at 2023-06-30 13:05:39. Result Read Back by Ivon Crook (RN) Chloride 88(L) 97 - 110 mmol/L [facility] ([place]) CO2 34(H) 22 - 32 mmol/L [facility] ([place]) Anion gap 12 2 - 15 mmol/L [facility] ([place]) BUN 88(H) 6 - 25 mg/dL [facility] ([place]) Creatinine 2.03(H) 0.60 - 1.10 mg/dL [facility] ([place]) Glucose 90 70 - 199 mg/dL [facility] ([place]) Comment: Interpretive Data Fasting glucose [...] 2022. Calcium 9.3 8.5 - 10.3 mg/dL [facility] ([place]) Blood 06/30/2023 8:58 AM GRANITE COUNTERTOP INSTALLER 06/30/2023 9:28 AM GRANITE COUNTERTOP INSTALLER Maude Harris ASSIGNER LAB BLOOD ORDERABLES nal Result [facility] FANG ([place]) 1 [facility] Department [place] [address] documented in this encounter Visit Diagnoses Diagnosis Chronic heart failure with preserved ejection fraction (CMS/HCC) (HCC)- Primary documented in this encounter Care Teams Oven Operator Relationship Specialty Start Date End Date Pepper Morgan MD PCP - General 09/16/16 Hank Garibay MD [address] [place] [address] [address] [facility] [place] [address] Surgeon Orthopedic Surgery 03/27/17 Jacky Murry MD [address] [place] [address] [address] [place] [address] Ophthalmology 03/27/17 Puma Mckenzie MD [address] [place] [address] [address] [facility] [address] [place] [address] Surgeon Orthopedic Surgery 07/11/19 Neha Jackson, PT Physical Therapist Physical Therapy 12/01/21 Stalin Arauz MD [address] [place] [address] [address] [place] [address] Consulting Physician Cardiology 12/08/22 Tiffany Rojas PA 4 [facility] [address] [place] [address] Gastroenterology 12/30/22 Klaus Deshpande MD 4 [facility] [address] [place] [address] Consulting Physician Neurology 06/13/23 documented as of this encounter
--- OUTSIDE RECORDS SUMMARY | 2024-06-18 18:51 | XMS_ITS | Encounter Summary ---
Author Organization [facility] Address [address] [place] [address] Phone Care Team Providers Care Well Puller Name Role Phone Pepper Morgan MD Primary Care Provider + [phone] Hank Garibay MD Unavailable [phone] Jacky Murry MD Unavailable [phone] Puma Mckenzie MD Unavailable [phone] Neha Jackson PT Unavailable Unavailable Stalin Arauz MD Unavailable [phone] Tiffany Rojas Unavailable [phone] Reason for Referral * Diagnostic Imaging (Routine) - Authorized Specialty Diagnoses / Procedures Referred By Contac t Referred To Contact Diagnoses Hematuria, gross Procedures US Retroperitoneal Complete Ana Bernal, MANAGER CONVENTION [address] [facility] [place] [place] [address] Phone: tel: fax: [id number] [place] [address] Referral ID Status Reason Start Date Expiration Date V isits Requested Visits Authorized [id number] Authorized 06/07/2023 07/06/2024 1 1 LEASING INFORMATION CLERK * Diagnostic Lab (Routine) - Pending Review Specialty Diagnoses / Procedures Referred By Olga uribe Referred To Contact Lab Diagnoses Hematuria, [place] [address] [facility] [place] [address] Phone: tel: fax: Referral ID Status Reason Start Date Expiration Date V isits Requested Visits Authorized [id number] Pending Review 06/07/2023 07/06/2024 1 1 LEASING INFORMATION CLERK Reason for Visit * Consultation (Routine) - Closed Specialty Diagnoses / Procedures Referred By Olga uribe Referred To Contact Urology Diagnoses Hematuria, unspecified type Referral, Self [facility] (All Locations) Referral ID Status Reason Start Date Expiration Date V isits Requested Visits Authorized [id number] Closed Specialty Services Required 05/15/2023 06/13/2024 99 [phone] Encounter Details Date Type Department Care Team (Late st Contact Info) Description 06/07/2023 11:00 AM LAND LEASING INFORMATION CLERK Office Visit [facility] - [facility] Urology [address] [facility] [address], [place] [address] [place] [address] [facility] [place] [address] Hematuria, gross (Primary Dx) Social History Tobacco Use Types Packs/Day Years Used Date Smoking Tobacco: Former Cigarettes 2 1 95 - 1981 Smokeless Tobacco: Never Tobacco Cessation:Counseling [...] week 12/29/2022 How often do you attend [employer] or pentecostalism services? Never 12/29/2022 Do you belong to [...] on file Legal Sex Female 4:33 AM LAND LEASING INFORMATION CLERK Gender Identity Not on file Sexual Orientation Not on file Occupation Industry Job Start Date Job End Date retired Not on file Not on file Not on file documented as of this encounter Last Filed Vital Signs Vital Sign Reading Time Taken Comments Blood Pressure 106/53 06/07/2023 10:58 AM LAND LEASING INFORMATION CLERK Pulse 69 06/07/2023 10:58 AM LAND LEASING INFORMATION CLERK Temperature 37 ??C (98.6 ??F) 06/07/2023 10:58 AM LAND LEASING INFORMATION CLERK Respiratory Rate - - Oxygen Saturation - - Inhaled Oxygen Concentration - - Weight 88.5 kg (195 lb) 06/07/2023 10:58 AM LAND LEASING INFORMATION CLERK Height 152.4 cm (5') 06/07/2023 10:58 AM LAND LEASING INFORMATION CLERK Body Mass Index 38.08 06/07/2023 10:58 AM LAND LEASING INFORMATION CLERK documented in this encounter Patient Instructions * Patient Instructions* Ana Bernal, MANAGER CONVENTION - 06/07/2023 11:00 AM LAND LEASING INFORMATION CLERK Patient Education Hematuria WHAT YOU NEED TO KNOW: What is hematuria? Hematuria is blood in your urine. Your urine may be bright red to dark brown. What other signs and symptoms might I have with hematuria? Fever Nausea and vomiting Pain or bruising on your lower back or sides Pain or burning when you urinate More urination than usual, or the need to urinate right away Blood clots in the toilet after you urinate What causes hematuria? Ask your healthcare provider for more information about these and other causes of hematuria: Urinary tract infection Kidney or bladder stones Swollen prostate Kidney disease Abdomen or pelvic injury Kidney, bladder, or prostate cancer Intense exercise How is hematuria diagnosed? Your healthcare provider will ask when you first saw a change in the color of your urine. Tell him or her about any medical conditions or medicines you take. Some medicines can damage your kidneys or increase your risk for bleeding. You may need any of the following: Blood and urine tests may show infection and how well your kidneys are working. An ultrasound or CT may show the cause of your hematuria. You may be given contrast liquid to help your urinary tract show up better in the pictures. Tell the healthcare provider if you have ever hadan allergic reaction to contrast liquid. A cystoscopy may show problems inside your bladder. The cystoscope is a long tube with a lens and alight on the end. How is hematuria treated? Hematuria may go away without treatment. You may need medicines to treat an infection. Treatment depends on the cause of your hematuria. Ask your healthcare provider for more information about the treatment you may need. How can I manage my symptoms? Drink liquids as directed. You may need to drink extra liquids to help flush the blood from your body through your urine. Water is the best liquid to drink. Ask how muchliquid to drink each day and which liquids are best for you. When should I seek immediate care? You have blood in your urine after a new injury, such as a fall. You have severe back or side pain that does not go away with treatment. When should I call my doctor? You are urinating very small amounts or not at all. You feel like you cannot empty your bladder. You have a fever that gets worse or does not go away with treatment. You cannot keep liquids or medicines down. Your urine gets darker, even after you drink extra liquids. You have questions or concerns about your condition, treatment, or care. CARE AGREEMENT: You have the right to help plan your care. Learn about your health condition and how it may be treated. Discuss treatment options with your healthcare providers to decide what care you want to receive. You always have the right to refuse treatment. The above information is an elementary school teacher's aide only. It is not intended as medical advice for individual conditions or treatments. Talk to your doctor, nurse or pharmacist before following any medical regimen to see if it is safe and effective for you. ?? Copyright [employer] 2021 Information is for End User's use only and may not be sold, redistributed or otherwise used for commercial purposes. All illustrations and images included in CareNotes?? are the copyrighted property of [employer]. or [employer] LEASING INFORMATION CLERK documented in this encounter Progress Notes * Ana Bernal NP - 06/07/2023 11:00 AM CST History and Physical Subjective Patient is a 87 y.o. female with chief complaint of gross hematuria. HPI: Tess Benedict is a 87 y.o. being seen at the request of Pepper Morgan MD for evaluation of gross hematuria. The hematuria began 1 month ago. Hematuria was associated with no other symptoms. The patient has not had fevers or flank pain. There is no history of associated trauma or injury. Patient has no previous evaluation. Patient is on Xarelto and Aspirin. Patient is a non smoker. Patient denies a family or personal history of malignancy or nephrolithiasis. Denies intermittency, straining, urgency, frequency, incontinence, hematuria and sense of incomplete emptying. UA showed 3+ blood in the urine. Micro demonstrated: 21-50 WBC and >50 RBC's on 05/08/2023. Subjective: The patient's past medical, social and family history have been reviewed and can be found in the chart. Review of Systems: Review of systems per HPI and otherwise all other systems are negative. Physical exam: Objective: Vitals: ..BP 106/53 Pulse 69 Temp 37 ??C (98.6 ??F) Ht 152.4 cm (5') Wt 88.5 kg (195 lb) LMP (LMPUnknown) BMI 38.08 kg/m?? Physical exam: General: does not appear in acute distress; no pain present Head: normocephalic/atraumatic Eyes: no discharge noted; (R,L) extraocular movements are intact Ears: (R,L) hearing grossly normal Nose/Mouth/Throat: mucous membranes moist Neck: neck inspection is normal; neck ROM normal Respiratory: has normal respiratory effort with no respiratory distress noted Musculoskeletal: normal range of motion present Neurology: patient is alert and oriented to person, place and time. Mood: has normal mood and affect Lab/Radiology/Diagnostic Review: Results for orders placed or performed in visit on 06/07/23 POCT urinalysis dipstick Result Value Ref Range Color, Urine, POC Light Yellow Clarity, ur, POC Clear Clear Glucose, ur, POC Negative Negative MG/DL Ketones, ur, POC Negative Negative Blood, ur, POC Negative Negative pH, ur, POC 5.0 5.0 - 8.0 Protein, ur, POC Negative Negative Nitrite, ur, POC Negative Negative Leukocytes, ur, POC Negative Negative Lot Number X CT abdomen pelvis without contrast on 12/22/2022 KIDNEYS/URINARY TRACT: There is no definite unenhanced CT evidence of a renal mass. There is no definite evidence of nephrolithiasis. There is no definite evidence of hydronephrosis or hydroureter. 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 There is suggestion of circumferential mucosal thickening of the urinary bladder. There is suggestion of air within the urinary bladder. I have personally reviewed and independently examined the UA and CT results. My findings are reported in my discussion with the associated imaging tests. Assessment /Plan Patient is a 87 y.o. female with gross hematuria. This is the second episode of blood in the urine.Recommend to have a hematuria work up. Urine for cytology sent today. She has an elevated creatinine an unable to have a CT with contrast. Plan for a retroperitoneal US. Patient will return to the office for cystoscopy. BHUPENDRA Null Urology Division [facility] Office [phone] 06/07/2023 10:56 AM LEASING INFORMATION CLERK documented in this encounter Plan of Treatment Scheduled Orders Name Type Priority Associated Diagnoses Order Schedule US Retroperitoneal Complete Imaging Schedule Routine, Read Routine (OP Routine) Hematuria, gross Expected: 06/07/2023, Expires: 12/06/2024 documented as of this encounter Goals Goal [...] Procedure Name Priority Date/Time Associated Diagnosis Comments POCT URINALYSIS DIPSTICK Routine 06/07/2023 11:10 AM LAND LEASING INFORMATION CLERK Hematuria, gross documented in this encounter Results * POCT urinalysis dipstick (06/07/2023 11:10 AM LAND LEASING INFORMATION CLERK) Color, Urine, POC Light Yellow Clarity, ur, POC Clear Clear Glucose, ur, POC Negative Negative MG/DL Ketones, ur, POC Negative Negative Blood, ur, POC Negative Negative pH, ur, POC 5.0 5.0 - 8.0 Protein, ur, POC Negative Negative Nitrite, ur, POC Negative Negative Leukocytes, ur, POC Negative Negative Lot Number X Urine 06/07/2023 11:1 0 AM LAND LEASING INFORMATION CLERK Ana Bernal MANAGER CONVENTION POINT OF CARE TEST ORDERABLES Final Result * Cytology (06/07/2023 12:00 AM LAND LEASING INFORMATION CLERK) Urine (Urine, Voided (Cytology)) 06/07/2023 06/07/2023 7:55 AM LAND LEASING INFORMATION CLERK Narrative PATHOLOGY CH - 06/09/2023 5:19 PM LAND LEASING INFORMATION CLERK [place] results best viewed via link to PDF [facility] Department of Pathology [address] [place] [address] Note to Patients: ??This report may contain a detailed description of human tissue sent by a health care provider to the laboratory for pathologic evaluation. ??The content of this report is essential for diagnosis and may provide important critical findings. ??This information may be unfamiliar to patients to review without a medical professional present. ?? It is advised that the patient review this report in the presence of a health care provider who can answer questions and explain the details. Final Report Patient Name: ??TESS BENEDICT William Address: ??[address] [place] [address] [place] ??[address]- Gender: ??F : ??1935 (Age: 87) Service: ?? Location: ?? Hospital # ??[id number] Patient Type: ?? SPECIMEN Taken: ??06/07/2023 Received: ?? 06/07/2023 Accessioned: ?? 06/08/2023 Reported: ?? 06/09/2023 Physician(s): ??BHUPENDRA Tejada Diagnosis: Urine, voided, cytology: ? - Negative for high-grade urothelial carcinoma (María Elena system). Kasia Diallo M.D. Report Electronically Reviewed and Signed Out By ??Kasia Anderson M.D. ??06/09/2023 17:19:31Specimen(s) Received: A: Urine, Voided Clinical History: The patient is an 87 year old female with gross hematuria. Gross Description: 1 container received with 100 cc yellow CytoLyt solution. 1 ThinPrep made. Microscopic Description: Microscopic examination of the voided urine (one ThinPrep slide) reveals a specimen that is adequate for evaluation. ??The specimen consists of scattered benign urothelial cells in a background of moderate numbers of benign squamous cells and sparse mixed inflammatory cells. ??There is no evidence of high-grade urothelial carcinoma. ?? The performance characteristics of some immunohistochemical stains, fluorescence in-situ hybridization tests and immunophenotyping by flow cytometry cited in this report (if any) were determined by the Surgical Pathology Department at [facility] as part of an ongoing supervisor quality control program and in compliance with federally mandated regulations drawn from the Clinical Laboratory Improvement Act of 1988 (CLIA '88). ??Some of these tests rely on the use of analyte specific reagents and are subject to specific labeling requirements by the US Food and Drug Administration. ??Such diagnostic tests may only be performed in a facility that is certified by the Department of Health and Human Services as a high complexity laboratory under CLIA '88. The FDA has determined that such clearance or approval is not necessary. ??This test is used for clinical purposes. ??It should not be regarded as investigational or for research. ??Nevertheless, federal rules concerning the medical use of analyte specific reagents require that the following disclaimer be attached to the report: This test was developed and its performance characteristics determined by the Surgical Pathology Department [facility]. ??It has not been cleared or approved by the U. S. Food and Drug Administration. Unless otherwise noted all cytology processing, staining and screening is performed at [facility] ([address] [place] [address]). REPORT IMAGES AND SCANNED DOCUMENTS, IF INCLUDED, ONLY VIEWABLE IN PDF VERSION OF REPORT Ana Bernal NP LAB CYTOLOGY ORDERABLES [place] [address] documented in this encounter Visit Diagnoses Diagnosis Hematuria, gross- Primary Gross hematuria Hematuria, gross Gross hematuria documented in this encounter Orders Outpatient Referral Count Last Ordered Date Fir st Ordered Date AMB REFERRAL TO UROLOGY 1 06/07/2023 documented in this encounter Care Teams Well Puller Relationship Specialty Start Date End Date Pepper Morgan MD PCP - General 09/16/16 Hank Garibay MD [address] [facility] [address] [place] [facility] [address] [place] [address] Surgeon Orthopedic Surgery 03/27/17 Jacky Murry MD [address] [facility] [address] WARNER [place] [facility] [address] [place] [address] Ophthalmology 03/27/17 Puma Mckenzie MD [address] [facility] [address] WARNER [place] [facility] [address] [place] [address] Surgeon Orthopedic Surgery 07/11/19 Neha Jackson, PT Physical Therapist Physical Therapy 12/01/21 Stalin Arauz MD [address] [facility] [address] [place] [address] Consulting Physician Cardiology 12/08/22 Tiffany Rojas PA [address] [facility] [address] [place] [address] Gastroenterology 12/30/22 documented as of this encounter
--- OUTSIDE RECORDS SUMMARY | 2024-06-18 18:51 | XMS_ITS | Encounter Summary ---
Author Organization [facility] Address [address] [place] [address] Care Team Providers Care Closing Manager Name Role Phone Pepper Morgan MD Primary Care Provider + [phone] Hank Garibay MD Unavailable [phone] Jacky Murry MD Unavailable [phone] Puma Mckenzie MD Unavailable [phone] Neha Jackson PT Unavailable Unavailable Stalin Arauz MD Unavailable [phone] Tiffany Rojas Unavailable [phone] Klaus Deshpande MD Unavailable [phone] Encounter Details Date Type Department Care Team (Late st Contact Info) Description 07/06/2023 Telephone [employer] at [address] [place] [phone] Hai Dalton MA Social History Tobacco Use [...] often do you attend chur ch or nondenominational services? Never 12/29/2022 Do you belong to [...] slept in a mcc (including now)? No 12/29/2022 Personal Safety Answer Date Recorded Getting School Help Needed Denies 05/29 Comments No Sex and Gender Information Value Date Recorded Sex Assigned at Not on file Legal Sex Female 4:33 AM ETCHER ELECTROLYTIC Gender Identity Not on file Sexual Orientation Not on file Occupation Industry Job Start Date Job End Date retired Not on file Not on file Not on file documented as of this encounter Miscellaneous Notes * Telephone Encounter - Hai Dalton MA - 07/07/2023 12:26 PM CST Patient advised ER ELECTROLYTIC * Telephone Encounter - Hai Dalton MA - 07/07/2023 8:15 AM CST Patient states she is very tired and not been sleeping well. Also states her feet hurt and it is difficult to walk. No swelling or discoloration. States BP is 112/57. She is states she is trying to stay at 6 cups of fluids a day but does get thirsty a lot. ER ELECTROLYTIC * Telephone Encounter - Hai Dalton MA - 07/06/2023 2:12 PM CST Left message on machine with results. Patient to call back with how she is feeling. ER ELECTROLYTIC * Telephone Encounter - Hai Dalton MA - 07/06/2023 2:12 PM CST ----- Message from Stalin Arauz MD sent at 07/05/2023 3:40 PM ETCHER ELECTROLYTIC ----- BNP better, creatinine better, potassium better. How is she doing ? ----- Message ----- From: Interface, Lab Results In Sent: 07/05/2023 1:16 PM ETCHER ELECTROLYTIC To: Stalin Arauz MD ER ELECTROLYTIC documented in this encounter Plan of Treatment [...] on filedocumented in this encounter Care Teams Closing Manager Relationship Specialty Start Date End Date Pepper Morgan MD PCP - General 09/16/16 Hank Garibay MD [address] [facility] [address] [place] [address] Surgeon Orthopedic Surgery 03/27/17 Jacky Murry MD [address] [facility] [address] WARN[address] [facility] [address] [place] [address] Ophthalmology 03/27/17 Puma Mckenzie MD [address] [facility] [address] [facility] [address] [place] [address] Surgeon Orthopedic Surgery 07/11/19 Neha Jackson, PT Physical Therapist Physical Therapy 12/01/21 Stalin Arauz MD [address] [facility] [address] [place] [address] Consulting Physician Cardiology 12/08/22 Tiffany Rojas PA [address] [place] [address] [place] [address] Gastroenterology 12/30/22 Klaus Deshpande MD [address] [facility] [address] [place] [address] Consulting Physician Neurology 06/13/23 documented as of this encounter
--- OUTSIDE RECORDS SUMMARY | 2024-06-18 18:51 | XMS_ITS | Encounter Summary ---
Author Organization [facility] Address [address] [place] [address] Care Team Providers Care Data Communications Software Consultant Name Role Phone Pepper Morgan MD Primary Care Provider + [phone] Hank Garibay MD Unavailable [phone] Jacky Murry MD Unavailable [phone] Puma Mckenzie MD Unavailable [phone] Neha Jackson PT Unavailable Unavailable Stalin Arauz MD Unavailable [phone] Tiffany Rojas Unavailable [phone] Klaus Deshpande MD Unavailable [phone] Encounter Details Date Type Department Care Team (Late st Contact Info) Description 06/30/2023 Telephone [employer] at [address] [place] [phone] Diana Shay MA Social History Tobacco Use Types Packs/Day [...] often do you attend chur ch or buddhist services? Never 12/29/2022 Do you belong to any clubs o r organizations such as nondenominational groups, unions, fraternal or athletic groups, or [...] slept in a fpc (including now)? No 12/29/2022 Personal Safety Answer Date Recorded Getting School Help Needed Denies 05/29 Comments No Sex and Gender Information Value Date Recorded Sex Assigned at Not on file Legal Sex Female 4:33 AM HEAD LINEMAN Gender Identity Not on file Sexual Orientation Not on file Occupation Industry Job Start Date Job End Date retired Not on file Not on file Not on file documented as of this encounter Miscellaneous Notes * Telephone Encounter - Diana Dow MA - 06/30/2023 1:52 PM CST Per CD: total 60 meq today, then 80 meq on Monday and Monday, check labs on Monday. Pt voiced understanding, if weather is bad, she is to call for further instructions. LINEMAN documented in this encounter Plan of Treatment [...] encounter Results * (ABNORMAL) Basic metabolic panel (07/05/2023 11:23 AM HEAD LINEMAN) Sodium 138 135 - 145 mmol/L [facility] ([place]) Potassium, pl 3.8 3.3 - 4.9 mmol/L [facility] ([place]) Chloride 95(L) 97 - 110 mmol/L [facility] ([place]) CO2 34(H) 22 - 32 mmol/L [facility] ([place]) Anion gap 8 2 - 15 mmol/L [facility] ([place]) BUN 48(H) 6 - 25 mg/dL [facility] ([place]) Creatinine 1.28(H) 0.60 - 1.10 mg/dL [facility] ([place]) Glucose 95 70 - 199 mg/dL [facility] ([place]) Comment: Interpretive Data Fasting glucose [...] interpretive data was last revised 2022. Calcium 9.5 8.5 - 10.3 mg/dL [facility] ([place]) Blood 07/05/2023 11:2 3 AM HEAD LINEMAN 07/05/2023 12:18 PM HEAD LINEMAN Maude Harris AMORTIZATION SCHEDULE CLERK LAB BLOOD ORDERABLES Fi nal Result [facility] ([place]) 1 [facility] Department [place] [address] documented in this encounter Visit Diagnoses Diagnosis Low serum potassium level- Primary documented in this encounter Care Teams Data Communications Software Consultant Relationship Specialty Start Date End Date Pepper Morgan MD PCP - General 09/16/16 Hank Garibay MD [address] [place] [address] [address] [facility] [address] [place] [address] Surgeon Orthopedic Surgery 03/27/17 Jacky Murry MD [address] [facility] [address] [facility] [place] [address] Ophthalmology 03/27/17 Puma Mckenzie MD [address] [place] [address] DR WARNER [place] [facility] [address] [place] [address] Surgeon Orthopedic Surgery 07/11/19 Neha Jackson, PT Physical Therapist Physical Therapy 12/01/21 Stalin Arauz MD [address] [place] [address] [address] [place] [address] Consulting Physician Cardiology 12/08/22 Tiffany Rojas PA [address] [facility] [address] [place] [address] Gastroenterology 12/30/22 Klaus Deshpande MD [address] [facility] [address] [place] [address] Consulting Physician Neurology 06/13/23 documented as of this encounter
--- OUTSIDE RECORDS SUMMARY | 2024-06-18 18:51 | XMS_ITS | Encounter Summary ---
Author Organization [facility] Address [address] [place] [address] Care Team Providers Care Sister Superior Name Role Phone Pepper Morgan MD Primary Care Provider + [phone] Hank Garibay MD Unavailable [phone] Jacky Murry MD Unavailable [phone] Puma Mckenzie MD Unavailable [phone] Neha Jackson PT Unavailable Unavailable Stalin Arauz MD Unavailable [phone] Tiffany Rojas Unavailable [phone] Klaus Deshpande MD Unavailable [phone] Encounter Details Date Type Department Care Team (Late st Contact Info) Description 06/27/2023 [facility] Post Discharge Follow up phone call [facility] [address] [place] [address] Tamra Ferris, RN Social History Tobacco Use Types Packs/Day Years Used Date Smoking Tobacco: Former Cigarettes 95 - 1981 Smokeless Tobacco: Never Alcohol [...] attend chur ch or mandaeism services? Never 12/29/2022 Do you belong to [...] in a care home (including now)? No 12/29/2022 Personal Safety Answer Date Recorded Getting School Help Needed Denies 05/29 Comments No Sex and Gender Information Value Date Recorded Sex Assigned at Not on file Legal Sex Female 4:33 AM [employer] Gender Identity Not on file Sexual Orientation [...] on filedocumented in this encounter Care Teams Sister Superior Relationship Specialty Start Date End Date Pepper Morgan MD PCP - General 09/16/16 Hank Garibay MD [address] [facility] [address] [place] [address] Surgeon Orthopedic Surgery 03/27/17 Jacky Murry MD [address] [facility] [address] [place] [address] Ophthalmology 03/27/17 Puma Mckenzie MD [address] [facility] [address] [place] [address] Surgeon Orthopedic Surgery 07/11/19 Neha Jackson, KEVIN Physical Therapist Physical Therapy 12/01/21 Stalin Arauz MD [address] [facility] [address] [place] [address] Consulting Physician Cardiology 12/08/22 Tiffany Rojas PA [address] [facility] [address] [place] [address] Gastroenterology 12/30/22 Klaus Deshpande MD [address] [facility] [address] [place] [address] Consulting Physician Neurology 06/13/23 documented as of this encounter
--- OUTSIDE RECORDS SUMMARY | 2024-06-18 18:51 | XMS_ITS | Encounter Summary ---
Author Organization [facility] Address [address] [place] [address] Care Team Providers Care Lead Setter Name Role Phone Pepper Morgan MD Primary Care Provider + [phone] Hank Garibay MD Unavailable [phone] Jacky Murry MD Unavailable [phone] Puma Mckenzie MD Unavailable [phone] Neha Jackson PT Unavailable Unavailable Stalin Arauz MD Unavailable [phone] Tiffany Rojas Unavailable [phone] Klaus Deshpande MD Unavailable [phone] Encounter Details Date Type Department Care Team (Late st Contact Info) Description 07/05/2023 11:20 AM PMO ANALYST Lab [address] [address] Social History Tobacco Use Types Packs/Day Years [...] often do you attend chur ch or sikhism services? Never 12/29/2022 Do you belong to any clubs o r organizations such as confucianist groups, unions, fraternal or athletic groups, or [...] on file Legal Sex Female 4:33 AM PMO ANALYST Gender Identity Not on file Sexual Orientation [...] filedocumented in this encounter Care Teams Lead Setter Relationship Specialty Start Date End Date Pepper Morgan MD PCP - General 09/16/16 Hank Garibay MD [address] [facility] [address] [place] [address] Surgeon Orthopedic Surgery 03/27/17 Jacky Murry MD [address] [facility] [address] [place] [address] Ophthalmology 03/27/17 Puma Mckenzie MD [address] [facility] [address] [place] [address] Surgeon Orthopedic Surgery 07/11/19 Neha Jackson, PT Physical Therapist Physical Therapy 12/01/21 Stalin Arauz MD [address] [facility] [address] [place] [address] Consulting Physician Cardiology 12/08/22 Tiffany Rojas PA [address] [facility] [address] [place] [address] Gastroenterology 12/30/22 Klaus Deshpande MD [address] [facility] [address] [place] [address] Consulting Physician Neurology 06/13/23 documented as of this encounter
--- OUTSIDE RECORDS SUMMARY | 2024-06-18 18:51 | XMS_ITS | Encounter Summary ---
Author Organization [facility] Address [address] [place] [address] Care Team Providers Care Air Chief Marshal Name Role Phone Pepper Morgan MD Primary Care Provider + [phone] Hank Garibay MD Unavailable [phone] Jacky Murry MD Unavailable [phone] Puma Mckenzie MD Unavailable [phone] Neha Jackson PT Unavailable Unavailable Stalin Arauz MD Unavailable [phone] Tiffany Rojas Unavailable [phone] Klaus Deshpande MD Unavailable [phone] Encounter Details Date Type Department Care Team (Late st Contact Info) Description 07/05/2023 11:15 AM SUPERVISOR COOLER SERVICE Lab [address] [address] Low serum potassium level; Chronic heart failure with preserved ejection fraction [...] often do you attend chur ch or zoroastrian services? Never 12/29/2022 Do you belong to any clubs o r organizations such as christianity groups, unions, fraternal or athletic groups, or [...] in a long term (including now)? No 12/29/2022 Personal Safety Answer Date Recorded Getting School Help Needed Denies 05/29 Comments No Sex and Gender Information Value Date Recorded Sex Assigned at Not on file Legal Sex Female 4:33 AM SUPERVISOR [employer] Gender Identity Not on file Sexual Orientation [...] Priority Date/Time Associated Diagnosis Comments EGFR Routine 07/05/2023 11:23 AM [employer]PERVISOR [employer] Low serum potassium level PRO B-TYPE NATRIURETIC PEPTIDE Routine 07/05/2023 11:23 AM SUPERVISOR [employer] Chronic heart failure with preserved ejection fraction (CMS/HCC) (HCC) BASIC METABOLIC PANEL Routine 07/05/2023 11:23 AM SUPERVISOR [employer]ICE Low serum potassium level documented in this encounter Results * eGFR (07/05/2023 11:23 AM SUPERVISOR CO[employer]ER SERVICE) eGFR 41 mL/min/1. 73 m2 [facility] ([place]) Comment: [...] interpretive data was last reviewed 2021. Blood 07/05/2023 11:2 3 AM SUPERVISOR COOLER SERVICE 07/05/2023 12:18 PM SUPERVISOR CO[employer]ER SERVICE us Maude Harris ECONOMICS INSTRUCTOR LAB BLOOD ORDERABLES Fi nal Result [facility] ([place]) [address] [facility] Department [place] [address] * (ABNORMAL) Pro B-type natriuretic peptide (07/05/2023 11:23 AM SUPERVISOR COOLER SERVICE) NT-proBNP 3,478(H) <=450 pg/mL [facility] ([place]) [...] Eur Heart J. 2006:27:330-337. 2. Hayden RW, Valerio AM. J. AM Sahra Cardiol: Cardiovasc Imag. 2009;2: 216- 225. Interpretive Data Last Revised Date: 2018. Blood 07/05/2023 11:2 3 AM SUPERVISOR CO[employer] SERVICE 07/05/2023 12:18 PM SUPERVISOR CO[employer]ER SERVICE us Stalin Arauz MD LAB BLOOD ORDERABLES Final Resu lt [facility] ([place]) [address] [facility] Department [place] [address] * (ABNORMAL) Basic metabolic panel (07/05/2023 11:23 AM SUPERVISOR CO[employer]ER SERVICE) Sodium 138 135 - 145 mmol/L [facility] ([place]) Potassium, pl 3.8 3.3 - 4.9 mmol/L [facility] ([place]) Chloride 95(L) 97 - 110 mmol/L [facility] ([place]) CO2 34(H) 22 - 32 mmol/L [facility] ([place]) Anion gap 8 2 - 15 mmol/L [facility] ([place]) BUN 48(H) 6 - 25 mg/dL [facility] ([place]) Creatinine 1.28(H) 0.60 - 1.10 mg/dL [facility] ([place]) Glucose 95 70 - 199 mg/dL [facility] ([place]) [...] 2022. Calcium 9.5 8.5 - 10.3 mg/dL [facility] Blood 07/05/2023 11:2 3 AM SUPERVISOR CO[employer]ER SERVICE 07/05/2023 12:18 PM SUPERVISOR COOLER SERVICE Maude Harris ECONOMICS INSTRUCTOR LAB BLOOD ORDERABLES Fi nal Result [facility] ([place]) [address] [facility] Department [place] [address] documented in this encounter Visit Diagnoses Diagnosis Low serum potassium level Chronic heart failure with preserved ejection fraction (CMS/HCC) (HCC) documented in this encounter Care Teams Air Chief Marshal Relationship Specialty Start Date End Date Pepper Morgan MD PCP - General 09/16/16 Hank Garibay MD [address] [place] [address] [address] [place] [address] Surgeon Orthopedic Surgery 03/27/17 Jacky Murry MD [address] [facility] [address] [facility] [address] [place] [address] Ophthalmology 03/27/17 Puma Mckenzie MD [address] [facility] [address] [facility] [address] [place] [address] Surgeon Orthopedic Surgery 07/11/19 Neha Jackson, PT Physical Therapist Physical Therapy 12/01/21 Stalin Arauz MD [address] [facility] [address] [place] [address] Consulting Physician Cardiology 12/08/22 Tiffany Rojas PA [address] [facility] [address] [place] [address] Gastroenterology 12/30/22 Klaus Deshpande MD [address] [facility] [address] [place] [address] Consulting Physician Neurology 06/13/23 documented as of this encounter
--- OUTSIDE RECORDS SUMMARY | 2024-06-18 18:51 | XMS_ITS | Encounter Summary ---
Author Organization [facility] Healthcare Address [address] [place] [address] Care Team Providers Care Director Compensation Name Role Phone Pepper Pelaez MD Primary Care Provider + [phone] Hank Garibay MD Unavailable [phone] Jacky Murry MD Unavailable [phone] Puma Mckenzie MD Unavailable [phone] Neha Jackson PT Unavailable Unavailable Chandu Arauz MD Unavailable [phone] Tiffany Rojas PA Unavailable [phone] Klaus Deshpande MD Unavailable [phone] Reason for Visit * Reason Comments Shortness of Breath Chest Pain * Auth/Cert (Routine) Specialty Diagnoses / Procedures Referred By Contac t Referred To Contact Diagnoses Dyspnea on exertion Acute on chronic heart failure, unspecified heart failure type (HCC) Chest pain, unspecified type Procedures na Referral ID Status Reason Start Date Expiration Date Visits Re quested Visits Authorized [id number] 1 1 Encounter Details Date Type Department Care Team (Latest Contact Info) Description 06/14/2023 9:35 PM RIFFLER TENDER - 06/17/2023 11:00 AM RIFFLER TENDER Hospital Encounter [address] [address] Jadon Bruno III, MD [address] [place] [address] [place] [id number] [employer] [address] [place] [address] [place] [id number] [employer] [facility] [address] [place], [place] [id number] Acute on chronic heart failure, unspecified heart failure type (HCC) (Primary Dx); Dyspnea on exertion; Chest pain, unspecified type; Restless legs syndrome Discharge Disposition: Discharge to home or self [...] week 12/29/2022 How often do you attend [facility] or [facility] services? Never 12/29/2022 Do you belong to [...] in a nursing home (including now)? No 12/29/2022 Personal Safety Answer Date Recorded Getting School Help Needed Denies 05/29 Comments No Sex and Gender Information Value Date Recorded Sex Assigned at Not on file Legal Sex Female 4:33 AM RIFFLER TENDER Gender Identity Not on file Sexual Orientation Not on file Occupation Industry Job Start Date Job End Date retired Not on file Not on file Not on file documented as of this encounter Last Filed Vital Signs Vital Sign Reading Time Taken Comments Blood Pressure 113/70 06/17/2023 7:38 AM RIFFLER TENDER Pulse 105 06/17/2023 9:00 AM RIFFLER TENDER Temperature 36.7 ??C (98.1 ??F) 06/17/2023 7:38 AM CS T Respiratory Rate 18 06/17/2023 7:38 AM RIFFLER TENDER Oxygen Saturation 94% 06/17/2023 7:38 AM RIFFLER TENDER Inhaled Oxygen Concentration - - Weight 88 kg (194 lb 0.1 oz) 06/15/2023 2:10 AM RIFFLER TENDER Height 152.4 cm (5') 06/15/2023 2:10 AM RIFFLER TENDER Body Mass Index 37.89 06/15/2023 2:10 AM RIFFLER TENDER documented in this encounter Discharge Summaries * Adama Shareedeonna Arriaga, NOEL - 06/17/2023 9:13 AM CST Inpatient Discharge Summary BRIEF OVERVIEW Admitting Provider: Ivan Muhammad MD Discharge Provider: Ivan Muhammad MD Primary Care Physician at Discharge: Pepper Pelaez MD [phone] Admission Date: 06/14/2023 Discharge Date: 06/17/2023 Admission Location: [facility] Problems/Diagnoses: Acute on chronic heart failure, HFpEF PAD DANNY in CKD A HTN DETAILS OF HOSPITAL STAY Presenting Problem/History of Present Illness: Ms. Benedict is a 67-year-old white female with past history of hypertension, atrial fibrillation, asthma, PVD, who presented to the emergency room for the above reasons. Patient states that she has had worsening shortness of breath for the past several weeks. Currently describes becoming dyspneic walking around her house. She also reports on and off right-sided chest pain that radiates into her neck. Says that the chest pain occurs at rest and with exertion. Patient reports some lower extremity swelling, left worse than right. Denies having fevers, chills, night sweats, nausea, vomiting, abdominal pain, diarrhea, dysuria, etc.. Hospital Course: Acute on chronic diastolic heart failure - presented with chest pain and shortness of breath ProBNPis 6669. Echo Normal left ventricular size. Mild concentric left ventricular hypertrophy. Diastolicdysfunction is present. Ejection fraction is measured at 62 % ; On IV Lasix changed to oral on 06/16 , Zaroxolyn. Farxiga ( takes Jardiance at home ) and carvedilol started Cardiology service consulted. Chest pain on admission, atypical. Troponin trend is 22, 21, with delta of 1, nonspecific. Cardiology consult reviewed Acute on chronic renal failure with creatinine of 1.84 with GFR of 27, follow, previously on 05/08/2023 creatinine was 1.25 with GFR of 42. Renal service consulted. Monitor renal function while on IVdiuretics; appears stable Acute respiratory distress likely secondary to CHF exacerbation now resolved patient is on room air Asthma, not in exacerbation. On Breo, albuterol MDI as needed, duo nebs as needed. Hypertension. Follow blood pressures. On Zaroxolyn, IV Lasix. Atrial fibrillation, rate controlled. On Xarelto. GERD. On Protonix. PVD. Status post AIF see results above, continue aspirin Restless leg syndrome. On Mirapex. Gabapentin changed to HS Essential tremor. On propranolol as needed. Morbid obesity Hyponatremia of 133 POA Hyperkalemia of 5.0 POA - resolve Microcytic anemia hemoglobin stable continue to follow; iron panel Slight thrombocytosis of 419, follow. Resolved The patient is medically stable for discharge . To follow with Dr Arauz next week . Instructed low sodium diet . Discharge Details Physical Exam at Discharge: Discharge Condition: stable Pulse: 92 Resp: 18 BP: 113/70 Temp: 36.7 ??C (98.1 ??F) Weight: 88 kg (194 lb 0.1 oz) Pertinent Exam Findings at Discharge: Gen: appears in no acute distress Neuro: Alert, oriented in time place and person. Pulmonary: clear to ausculation; No crackles or rhonchi. Cardiovascular: regular rhythm. No murmurs heard. Trace edema LLE GI: abdomen soft, non-tender; positive BS Musculoskeletal: No joint swelling, tenderness or warmth. Skin: No decubitus ulcers Discharge Disposition: Discharge to home or self care Dc> 35 mins Code Status at Discharge: Discharge Instructions: Activity Instructions Discharge Activity: Walking -You may walk as tolerated. Discharge activity: Resume normal activity Diet Instructions Adult Discharge Diet Diet Type: Restrict salt intake to less than 4000 mg per day Other Instructions Call provider for: Temperature -Temperature greater than 101 degrees F Call provider for: persistent nausea or vomiting Call provider for: severe uncontrolled pain Discharge Medications: Current Medications TAKE these medications albuterol HFA 90 mcg/actuation inhaler Inhale 2 puffs every 6 (six) hours as needed for wheezing or shortness of breath Commonly known as: Proventil HFA aspirin 81 mg enteric coated tablet Take 1 tablet (81 mg total) by mouth daily carvediloL 6.25 mg tablet Take 1 tablet (6.25 mg total) by mouth 2 (two) times a day with meals Commonly known as: COREG cetirizine 10 mg tablet Take 1 tablet (10 mg total) by mouth nightly Commonly known as: ZyrTEC cholecalciferol 2000 unit tablet Take 1 tablet (2,000 Units total) by mouth daily Commonly known as: VITAMIN D-3 clonazePAM 0.5 mg tablet Take 1 tablet (0.5 mg total) by mouth nightly Commonly known as: KlonoPIN empagliflozin 10 mg tablet Take 1 tablet (10 mg total) by mouth daily Commonly known as: JARDIANCE felodipine 5 mg 24 hr tablet Take 1 tablet (5 mg total) by mouth daily Commonly known as: PLENDIL fluticasone propion-salmeteroL 100-50 mcg/dose diskus inhaler Inhale 1 puff 2 (two) times a day Rinse mouth with water after use. Do not swallow. Commonly known as: ADVAIR DISKUS furosemide 40 mg tablet Take 1 tablet (40 mg total) by mouth daily Commonly known as: LASIX Start taking on: June 18, 2023 gabapentin 300 mg capsule Take 1 capsule (300 mg total) by mouth nightly Commonly known as: NEURONTIN metOLazone 2.5 mg tablet Take 1 tablet (2.5 mg total) by mouth every other day Commonly known as: ZAROXOLYN pantoprazole DR 40 mg EC tablet Take 1 tablet (40 mg total) by mouth daily For: Treatment of Non-Bleeding Gastric Disorder Commonly known as: PROTONIX polyethylene glycol 17 gram packet Take 1 packet (17 g total) by mouth daily as needed for constipation For: constipation Commonly known as: MIRALAX potassium chloride ER 20 mEq CR tablet Take 1 tablet (20 mEq total) by mouth daily Commonly known as: KLOR-CON pramipexole 0.5 mg tablet Take 1 tablet (0.5 mg total) by mouth 2 (two) times a day For: Parkinson's disease, restless legs syndrome, an extreme discomfort in the calf muscles when sitting or lying down Commonly known as: MIRAPEX propranoloL 20 mg tablet Take 1 tablet (20 mg total) by mouth 2 (two) times a day as needed (Tremor) Commonly known as: INDERAL rivaroxaban 20 mg tablet Take 1 tablet (20 mg total) by mouth daily Commonly known as: XARELTO Outpatient Follow-Up: Future Appointments Date Time Provider Department Center 07/12/2023 11:15 AM Jadyn Hobson PA [facility] OS 130B Specialty 07/13/2023 9:20 AM Pepper Pelaez MD [facility] IM PSA 08/21/2023 11:15 AM Chandu Arauz MD [facility] CAR 122 PSA 08/31/2023 9:00 AM Klaus Deshpande MD [facility] Specialty 09/15/2023 1:30 PM [facility] 10/23/2023 10:30 AM [facility] Main 12/15/2023 9:20 AM Lyndsay Joshi MD [facility] M[facility] Contact Information for Follow-ups Chandu Arauz MD Specialty: Cardiology, Cardiovascular Disease, Internal Medicine, Interventional Cardiology Relationship: Consulting Physician [address] [place] [address] Next Steps: Follow up Comments: Follow up with established provider: 2 weeks Questions: To provider: CHANDU ARAUZ Kristen M., MD Specialty: Internal Medicine, Family Medicine, Geriatric Medicine [address] [place] [address] Next Steps: Follow up Comments: Follow up with established provider: 2 weeks Questions: To provider: PEPPER PELAEZ Cosigned by Ivan Muhammad MD at 06/17/2023 4:04 PM RIFFLER TENDER LER TENDER LER TENDER documented in this encounter Medications at Time [...] tablet (2,000 Units total) by mouth daily aspirin 81 mg enteric coated tablet Take 1 tablet (81 mg total) by mouth daily 4 carvediloL (COREG) 6.25 mg tablet Take 1 tablet (6.25 mg total) by mouth 2 (two) times a day with meals 60 tablet 06/17/2023 4 clonazePAM (KlonoPIN) 0.5 mg tabletIndications :Restless legs syndrome Take 1 tablet (0.5 mg total) by mouth nightly 30 tablet 1 05/30/2023 4 empagliflozin (JARDIANCE) 10 mg tablet Take 1 tablet (10 mg total) by mouth daily 30 tablet 11 05/29/2023 4 felodipine (PLENDIL) 5 mg 24 hr tabletIndications :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 Take 1 tablet (5 mg total) by mouth daily 90 tablet 2 12/08/2022 4 fluticasone propion-salmetero L (ADVAIR DISKUS) 100-50 mcg/dose diskus inhaler Inhale 1 puff 2 (two) times a day Rinse mouth with water after use. Do not swallow. 1 each 4 03/09/2023 4 furosemide (LASIX) 40 mg tablet Take 1 tablet (40 mg total) by mouth daily 30 tablet 06/18/2023 4 gabapentin (NEURONTIN) 300 mg capsuleIndication s:Restless legs syndrome Take 1 capsule (300 mg total) by mouth nightly 06/17/2023 4 metOLazone (ZAROXOLYN) 2.5 mg tabletIndications :Peripheral Edema due to Chronic Heart Failure Take 2 tablets (5 mg total) by mouth daily [address] (PROTONIX) 40 mg EC tabletIndications :Treatment of Non-Bleeding Gastric Disorder Take 1 tablet (40 mg total) by mouth daily 30 tablet 11 12/31/2022 4 polyethylene glycol (MIRALAX) 17 gram packetIndications :constipation Take 1 packet (17 g total) by mouth daily as needed for constipation 4 potassium chloride ER 20 mEq CR tablet Take 1 tablet (20 mEq total) by mouth daily 4 pramipexole (MIRAPEX) 0.5 mg tabletIndications :Idiopathic Parkinsonism,Rest less Legs Syndrome Take 1 tablet (0.5 mg total) by mouth 2 (two) times a day 60 tablet 3 05/25/2023 4 propranoloL (INDERAL) 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 :Hereditary essential tremor Take 1 tablet (20 mg total) by mouth 2 (two) times a day as needed (Tremor) 180 tablet 2 12/08/2022 4 rivaroxaban (XARELTO) 20 mg tablet Take 1 tablet (20 mg total) by mouth daily 30 tablet 11 12/08/2022 4 documented as of this encounter Ordered Prescriptions Prescription Sig Dispense Quantity Refills Last Filled Start Date End Date gabapentin (NEURONTIN) 300 mg capsuleIndications :Restless legs syndrome Take 1 capsule (300 mg total) by mouth nightly 06/17/2023 4 furosemide (LASIX) 40 mg tablet Take 1 tablet (40 mg total) by mouth daily 30 tablet 06/18/2023 4 carvediloL (COREG) 6.25 mg tablet Take 1 tablet (6.25 mg total) by mouth 2 (two) times a day with meals 60 tablet 06/17/2023 4 documented in this encounter Discharge Disposition Disposition Code Departure Means Destination Comment s Discharge to home or self care documented in this encounter Progress Notes * Lucas Rasheed MD - 06/16/2023 5:04 PM CST Nephrology Daily Progress Portions of this note were carried over from previous note, EHR template. I reviewed and updated asnecessary. Reason for admission Dyspnea on exertion [R06.09] Acute on chronic heart failure, unspecified heart failure type (HCC) [I50.9] Chest pain, unspecified type [R07.9] Summary 87-year-old female with past medical history of CHF, hypertension and atrial fibrillation was admitted with the decompensated CHF, most likely due to dietary indiscretion. She was found with a serum creatinine of 1.8, whereas her baseline is 1.2., Interval history Has done well with diuretics blood pressure stable, last 24 hours urine output 1600 mL and serum creatinine slowly improving. Subjective / Review of systems Reports significant improvement in breathing. Objective Vitals: 24hr Min/Max: Temp Min: 36.2 ??C (97.1 ??F) Max: 36.8 ??C (98.3 ??F) Pulse Min: 76 Max: 84 BP Min: 101/66 Max: 143/81 Resp Min: 17 Max: 18 SpO2 Min: 90 % Max: 100 % Most Recent: Vitals: 06/16/23 1640 BP: 143/81 Pulse: 78 Resp: 18 Temp: 36.3 ??C (97.3 ??F) SpO2: 100% I/O last 2 completed shifts: In: 604 [P.O.:604] Out: 1600 [Urine:1600] I/O this shift: In: 266 [P.O.:266] Out: 900 [Urine:900] Medications Current Medications: Scheduled Meds:aspirin, 81 mg, oral, Daily carvediloL, 6.25 mg, oral, BID with meals (bkfst, dinner) cetirizine, 10 mg, oral, Nightly cholecalciferol, 2,000 Units, oral, Daily clonazePAM, 0.5 mg, oral, Nightly dapagliflozin propanediol, 10 mg, oral, Daily fluticasone furoate-vilanteroL, 1 puff, inhalation, Daily (RT) furosemide, 40 mg, oral, Daily gabapentin, 300 mg, oral, Nightly metOLazone, 2.5 mg, oral, Every other day pantoprazole DR, 40 mg, oral, Daily pramipexole, 0.5 mg, oral, BID rivaroxaban, 20 mg, oral, Daily Continuous Infusions: PRN Meds:. acetaminophen albuterol HFA cyclobenzaprine ipratropium-albuteroL ondansetron polyethylene glycol propranoloL Lab/Radiology/Diagnostic Review: I have reviewed all relevant laboratory and imaging results and found improving renal function. Additional Labs: Recent Labs Lab Units 06/16/23 0502 06/15/23 0509 06/14/23 1852 SODIUM mmol/L 133* 134* 133* POTASSIUM PLASMA mmol/L 4.1 4.1 5.0* CHLORIDE mmol/L 93* 95* 97 CO2 mmol/L 29 BUN SERUM mg/dL 44* 38* 37* CREATININE mg/dL 1.62* 1.68* 1.84* [id number] mL/min/1.73 m2 31 30 27 GLUCOSE mg/dL 101 94 103 CALCIUM mg/dL 9.3 9.2 9.3 ALBUMIN g/dL -- -- 3.5 Recent Labs Lab Units 06/16/23 0502 06/15/23 0509 06/14/23 1852 WBC K/cumm 8.0 9.0 9.4 HEMOGLOBIN g/dL 9.4* 9.1* 9.5* HEMATOCRIT % 31.8* 31.1* 32.2* PLATELETS K/cumm 374 400 419* NEUTROS PCT % -- -- 76.3 LYMPHS PCT % -- -- 10.6 MONOS PCT % -- -- 8.3 EOS PCT % -- -- 3.3 Physical Exam: Constitutional: alert and oriented. Appears well-developed and well-nourished, in no distress. Head: Normocephalic. Eyes: Pupils are unremarkable. Neck: Neck supple. Cardiovascular: Normal rate and regular rhythm. No murmur heard. Pulmonary/Chest: Breath sounds normal. Abdominal: Soft. Musculoskeletal: exhibits no edema. Neurological: alert and moves all 4 limbs. ASSESSMENT & PLAN 1. Acute kidney injury on CKD 3A. --acute kidney injury due to cardiorenal syndrome and underlying CKD 3A, due to hypertensive nephrosclerosis. Slowly improving. --baseline serum creatinine 1.2. --will continue to monitor. 2. CHF. --decompensated and this was precipitated by dietary indiscretion. --diuretics, with fluid and salt restriction. --further management per Cardiology. 3. Hypertension. --reasonably well controlled. Voice recognition software was used to complete this document, therefore, space officer variances may occur. Lucas Rasheed MD [facility] Office: [phone] / [phone] Exchange: [phone] LER TENDER * Rahat Harris MD - 06/16/2023 12:01 PM CST Daily Progress Subjective Chief complaint of Shortness of breath. Interval History: Stable, On Room Air, complains of side effects from gabapentin. Objective Vitals: 24hr Min/Max: Temp Min: 36.2 ??C (97.1 ??F) Max: 36.9 ??C (98.4 ??F) Pulse Min: 67 Max: 84 BP Min: 101/66 Max: 113/76 Resp Min: 17 Max: 18 SpO2 Min: 90 % Max: 100 % Most Recent : Vitals: 06/16/23 0735 BP: 110/59 Pulse: 81 Resp: 18 Temp: 36.8 ??C (98.3 ??F) SpO2: 90% I/O last 2 completed shifts: In: 604 [P.O.:604] Out: 1600 [Urine:1600] I/O this shift: In: 266 [P.O.:266] Out: - Current Facility-Administered Medications Medication Dose Route Frequency Provider Last Rate Last Admin acetaminophen (TYLENOL) tablet 650 mg 650 mg oral Q6H PRN Jahaira Dc MD 650 mg at 06/15/23 2201 albuterol HFA (PROVENTIL HFA,VENTOLIN HFA,PROAIR HFA) 90 mcg/actuation inhaler 2 puff 2 puff inhalation Q6H PRN (RT) Jahaira Dc MD 2 puff at 06/16/23 0527 aspirin enteric coated tablet 81 mg 81 mg oral Daily Jahaira Dc MD 81 mg at 06/16/23 1111 carvediloL (COREG) tablet 6.25 mg 6.25 mg oral BID with meals (bkfst, dinner) Carlos Lakhani NP6.25 mg at 06/15/23 1730 cetirizine (ZyrTEC) tablet 10 mg 10 mg oral Nightly Jahaira Dc MD 10 mg at 06/15/232031 cholecalciferol (VITAMIN D-3) tablet 2,000 Units 2,000 Units oral Daily Jahaira Dc MD 2,000 Units at 06/16/23 111 clonazePAM (KlonoPIN) tablet 0.5 mg 0.5 mg oral Nightly Jahaira Dc MD 0.5 mg at 06/15/232031 cyclobenzaprine (FLEXERIL) tablet 10 mg 10 mg oral TID PRN Jahaira Dc MD 10 mg at 06/15/23 2201 dapagliflozin propanediol (FARXIGA) tablet 10 mg 10 mg oral Daily Carlos Lakhani NP 10 mg at 06/16/23 1111 fluticasone furoate-vilanteroL (BREO ELLIPTA) 200-25 mcg/dose inhaler 1 puff 1 puff inhalation Daily (RT) Jahaira Dc MD 1 puff at 06/15/23 1109 furosemide (LASIX) 10 mg/mL injection 40 mg 40 mg intravenous BID DIURETIC Carlos Lakhani NP 40mg at 06/16/23 1110 gabapentin (NEURONTIN) capsule 300 mg 300 mg oral Nightly Sharee Galan NP ipratropium-albuteroL (DUO-NEB) 0.5-2.5 mg/3 mL nebulizer solution 3 mL 3 mL nebulization Q4H PRN (RT) Jahaira Dc MD metOLazone (ZAROXOLYN) tablet 2.5 mg 2.5 mg oral Every other day Jahaira Dc MD 2.5 mg at 06/15/23 0846 ondansetron (ZOFRAN) injection 4 mg 4 mg intravenous Q4H PRN Jahaira Dc MD pantoprazole DR (PROTONIX) extended release tablet 40 mg 40 mg oral Daily Jahaira Dc MD 40 mg at 06/16/23 1111 polyethylene glycol (MIRALAX) packet 17 g 17 g oral Daily PRN Jahaira Dc MD pramipexole (MIRAPEX) tablet 0.5 mg 0.5 mg oral BID Jahaira Dc MD 0.5 mg at 06/16/23 1126 propranoloL (INDERAL) tablet 20 mg 20 mg oral BID PRN Jahaira Dc MD 20 mg at 06/14/23 2355 rivaroxaban (XARELTO) tablet 20 mg 20 mg oral Daily Jadon Bruno III, MD 20 mg at 06/16/23 1111 Physical Exam: General appearance: appears stated age and cooperative Head: Normocephalic, without obvious abnormality, atraumatic Lungs: clear to auscultation bilaterally Heart: irregularly irregular rhythm Extremities: extremities normal, warm and well-perfused Lab/Radiology/Diagnostic Review: Laboratory review: Lab results in the last 24 hours: Recent Results (from the past 24 hour(s)) CBC without differential Collection Time: 06/16/23 5:02 AM Result Value Ref Range WBC 8.0 3.8 - 9.9 K/cumm Hgb 9.4 (L) 11.9 - 15.5 g/dL Hct 31.8 (L) 35.6 - 45.5 % Plt 374 150 - 400 K/cumm MPV 8.7 (L) 9.1 - 12.3 fL RBC 4.20 3.90 - 5.20 M/cumm MCV 75.7 (L) 81.3 - 96.4 fL MCH 22.4 (L) 27.1 - 33.3 pg MCHC 29.6 (L) 32.3 - 35.7 g/dL RDW CV 16.0 (H) 11.1 - 14.9 % RDW SD 43.6 35.7 - 48.1 fL NRBC abs 0.00 0.00 - 0.01 K/cumm Basic metabolic panel Collection Time: 06/16/23 5:02 AM Result Value Ref Range Sodium 133 (L) 135 - 145 mmol/L Potassium, pl 4.1 3.3 - 4.9 mmol/L Chloride 93 (L) 97 - 110 mmol/L CO2 28 22 - 32 mmol/L Anion gap 12 2 - 15 mmol/L BUN 44 (H) 6 - 25 mg/dL Creatinine 1.62 (H) 0.60 - 1.10 mg/dL Glucose 101 70 - 199 mg/dL Calcium 9.3 8.5 - 10.3 mg/dL eGFR Collection Time: 06/16/23 5:02 AM Result Value Ref Range eGFR 31 mL/min/1.73 m2 Lipids: Lab Results Component Value Date CHOL 129 06/15/2023 HDL 40 06/15/2023 LDLCALC 75 06/15/2023 TRIG 71 06/15/2023 CHOLHDL 3 06/15/2023 and Cardiac Enzymes: No results found for: CKTOTAL , CKMB , CKMBINDEX , TROPONINT Echo: Normal left ventricular size. Mild concentric left [...] by planimetry 1.7 cm2. No aortic regurgitation. Assessment/Plan Principal Problem: Acute on chronic heart failure, unspecified heart failure type (HCC) Impression 1. Congestive heart failure, HFpEF. Change Lasix to PO. Start carvedilol and Farxiga. Monitor her renal function. 2. Chronic atrial fibrillation.. Continue rate control plus Xarelto. 3. Peripheral artery disease. LER TENDER * Sharee Galan NP - 06/16/2023 10:21 AM CST General Medicine Daily Progress Reason for hospitalization: Dyspnea on exertion [R06.09] Acute on chronic heart failure, unspecified heart failure type (HCC) [I50.9] Chest pain, unspecified type [R07.9] Interval History: 06/16 - patient participated with physical therapy and ambulated 100 ft, she had some dizziness this morning thought due to taking gabapentin. She only takes gabapentin at bedtime when home. She remains on Ra; mild SOB when ambulating. 06/15 - patient resting in bed currently admitted to the 9th floor, reports dyspnea has improved currently on room air, has trace edema to lower extremities, no dizziness or lightheadedness reported Objective: Vitals: 06/16/23 0000 06/16/23 0400 06/16/23 0527 06/16/23 0735 BP: 104/65 101/66 110/59 BP Location: Right arm Right arm Right arm Patient Position: Lying Lying Lying Pulse: 83 76 81 Resp: 17 17 18 Temp: 36.3 ??C (97.3 ??F) 36.2 ??C (97.1 ??F) 36.8 ??C (98.3 ??F) TempSrc: Tympanic Tympanic Axillary SpO2: 92% 96% 93% 90% Weight: Height: I/O last 2 completed shifts: In: 604 [P.O.:604] Out: 1600 [Urine:1600] No intake/output data recorded. Medications: Scheduled Medications Medication Dose Route Frequency aspirin enteric coated tablet 81 mg 81 mg oral Daily carvediloL (COREG) tablet 6.25 mg 6.25 mg oral BID with meals (bkfst, dinner) cetirizine (ZyrTEC) tablet 10 mg 10 mg oral Nightly cholecalciferol (VITAMIN D-3) tablet 2,000 Units 2,000 Units oral Daily clonazePAM (KlonoPIN) tablet 0.5 mg 0.5 mg oral Nightly dapagliflozin propanediol (FARXIGA) tablet 10 mg 10 mg oral Daily fluticasone furoate-vilanteroL (BREO ELLIPTA) 200-25 mcg/dose inhaler 1 puff 1 puff inhalation Daily (RT) furosemide (LASIX) 10 mg/mL injection 40 mg 40 mg intravenous BID DIURETIC gabapentin (NEURONTIN) capsule 300 mg 300 mg oral Nightly metOLazone (ZAROXOLYN) tablet 2.5 mg 2.5 mg oral Every other day pantoprazole DR (PROTONIX) extended release tablet 40 mg 40 mg oral Daily pramipexole (MIRAPEX) tablet 0.5 mg 0.5 mg oral BID rivaroxaban (XARELTO) tablet 20 mg 20 mg oral Daily Physical Exam: Gen: appears in no acute distress Neuro: Alert, oriented in time place and person. Pulmonary: clear to ausculation; No crackles or rhonchi. Cardiovascular: regular rhythm. No murmurs heard. Trace edema LLE GI: abdomen soft, non-tender; positive BS Musculoskeletal: No joint swelling, tenderness or warmth. Skin: No decubitus ulcers Labs: Labs reviewed Recent Results (from the past 24 hour(s)) CBC without differential Collection Time: 06/16/23 5:02 AM Result Value Ref Range WBC 8.0 3.8 - 9.9 K/cumm Hgb 9.4 (L) 11.9 - 15.5 g/dL Hct 31.8 (L) 35.6 - 45.5 % Plt 374 150 - 400 K/cumm MPV 8.7 (L) 9.1 - 12.3 fL RBC 4.20 3.90 - 5.20 M/cumm MCV 75.7 (L) 81.3 - 96.4 fL MCH 22.4 (L) 27.1 - 33.3 pg MCHC 29.6 (L) 32.3 - 35.7 g/dL RDW CV 16.0 (H) 11.1 - 14.9 % RDW SD 43.6 35.7 - 48.1 fL NRBC abs 0.00 0.00 - 0.01 K/cumm Basic metabolic panel Collection Time: 06/16/23 5:02 AM Result Value Ref Range Sodium 133 (L) 135 - 145 mmol/L Potassium, pl 4.1 3.3 - 4.9 mmol/L Chloride 93 (L) 97 - 110 mmol/L CO2 28 22 - 32 mmol/L Anion gap 12 2 - 15 mmol/L BUN 44 (H) 6 - 25 mg/dL Creatinine 1.62 (H) 0.60 - 1.10 mg/dL Glucose 101 70 - 199 mg/dL Calcium 9.3 8.5 - 10.3 mg/dL eGFR Collection Time: 06/16/23 5:02 AM Result Value Ref Range eGFR 31 mL/min/1.73 m2 All lab results stated above were reviewed by me. [] I confirmed that the patient's Advance Care Plan is present, code status is documented, or surrogate decision maker is listed in the patient's medical record. Imaging: Results were reviewed independently by myself CXR on 06/14 no acute pulmonary AIF on 02/18/2022 showed peripheral vascular disease [...] post dilated using a 5 mm balloon. 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 Assessment & Plan: Acute on chronic diastolic heart failure - presented with chest pain and shortness of breath ProBNPis 6669. Further evaluation with 2D echo. On IV Lasix, Zaroxolyn. Farxiga and carvedilol started Cardiology service consulted. Chest pain on admission, atypical. Troponin trend is 22, 21, with delta of 1, nonspecific. Cardiology consult reviewed Acute on chronic renal failure with creatinine of 1.84 with GFR of 27, follow, previously on 05/08/2023 creatinine was 1.25 with GFR of 42. Renal service consulted. Monitor renal function while on IVdiuretics Acute respiratory distress likely secondary to CHF exacerbation now resolved patient is on room air Asthma, not in exacerbation. On Breo, albuterol MDI as needed, duo nebs as needed. Hypertension. Follow blood pressures. On Zaroxolyn, IV Lasix. Atrial fibrillation, rate controlled. On Xarelto. GERD. On Protonix. PVD. Status post AIF see results above, continue aspirin Restless leg syndrome. On Mirapex. Gabapentin changed to HS Essential tremor. On propranolol as needed. Morbid obesity Hyponatremia of 133 POA Hyperkalemia of 5.0 POA - resolve Microcytic anemia hemoglobin stable continue to follow; iron panel Slight thrombocytosis of 419, follow. Resolved Prophylaxis. Xarelto, Protonix. Sharee Galan, ANP [facility] [phone] 06/16/2023 10:22 AM LER TENDER * Yvonne Bartlett, APARTMENT MAINTENANCE SUPERVISOR - 06/16/2023 9:10 AM CST Physical Therapy PT PROGRESS NOTE PATIENT'S NAME:Tess Benedict :1935 AGE:87 y.o. ROOM:[place] [address] Past Medical History: Diagnosis Date Allergic rhinitis [...] ARTHROPLASTY Left 11/01/2021 Dr. Mckenzie, [facility]. Patient Active Problem List Diagnosis Essential tremor Chronic GERD 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 Restless legs syndrome Bariatric surgery status Knee joint replacement status, bilateral History of malignant melanoma SOBOE (shortness of breath on exertion) Atrial fibrillation (CMS/HCC) (HCC) Spinal stenosis of lumbar region with neurogenic claudication Peripheral arterial disease (HCC) long term care social worker current use of anticoagulant Postural kyphosis of cervicothoracic region Chronic heart failure with preserved ejection fraction (CMS/HCC) (HCC) Gait disturbance Hospital discharge follow-up Morbid (severe) obesity due to excess calories (HCC) Mild persistent asthma 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 Acute on chronic heart failure, unspecified heart failure type ([facility]) TIME IN: 906 TIME OUT: 944 SUBJECTIVE I need to go to the bathroom MENTAL STATUS/ORIENTATION: Alert and oriented x4 PAIN: Pre-therapy pain level: 0/10 Pain location: n/a Pain intervention: n/a Post-therapy pain level/response to intervention: no c/o pain OBJECTIVE PRECAUTIONS: fall risk APPEARANCE/POSTURE: supine in bed on room air, call light next to patient VITAL SIGNS: Resting BP: 119/64 Post-activity BP: 105/71 Resting heart rate: 83 Post-activity heart rate: 96 Resting O2 sat: 98% Post-activity O2 sat: 95% MOBILITY DOCUMENTATION: Bed Mobility/Transfers: supine to sit SBA, sit to/from stand SBA Gait: amb 20'x2 100'x1 w/w CG assist slow david, with c/o feeling light headed TREATMENT: Continent episode of urine in standard toilet SBA assist Sitting le ex x 10 reps APPEARANCE/POSTURE (end of session): sitting in bed side recliner balbir le elevated call light and phone next to patient EDUCATION:therapeutic exercises , functional transfer training, gait training , strengthening, and safety RESPONSE TO EDUCATION: demonstrated understanding, needs reinforcement, and verbalizes understanding ASSESSMENT Activity tolerance/response to P.T.: patient sandra tx session with c/o fatigue and feeling light headed with amb 100' w/w CG assist Barriers to learning: Physical Barriers to discharge: Decreased endurance, Upper extremity weakness, Lower extremity weakness, Long standing deficits, and Stairs at home Patient continues progressing toward previously set goals which remain appropriate at this time. PLAN PT Discharge Recommendations this date: PT Recommendation/Plan: Home with intermittent assist, Home Health PT PT Frequency during current admission: 3-5x/wk Refer to multi-disciplinary care plan section for PT specific goals. If this is the last note, please consider this the discharge summary. Cosigned by Kavitha French, PT at 06/16/2023 4:15 PM RIFFLER TENDER LER TENDER LER TENDER * Katarzyna Ruiz, PT - 06/15/2023 2:49 PM CST Physical Therapy INITIAL EVALUATION PATIENT'S NAME:Tess Benedict :1935 AGE:87 y.o. ROOM:[place] [address] TIME IN:1450 TIME OUT:1517 CURRENT DIAGNOSIS AND HOSPITAL COURSE: 87-year-old female the past medical history of CHF, moderate persistent asthma and hypertension whopresents with 2 weeks of progressively worsening dyspnea on exertion associated with weight gain and lower extremity swelling. Patient admitted with acute on chronic diastolic CHF, acute respiratory distress with hypoxia,, HTN, a-fib, GERD, PVD, RLS, essential tremor, obesity, hyponatremia, hyperkalemia, acute on chronic renal failure, anemia, slight thrombocytosis, microcytosis Notable History: CHF, asthma, a-fib, DVT, GERD, HTN Patient Active Problem List Diagnosis Essential tremor Chronic GERD 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 Restless legs syndrome Bariatric surgery status Knee joint replacement status, bilateral History of malignant melanoma SOBOE (shortness of breath on exertion) Atrial fibrillation (CMS/HCC) (HCC) Spinal stenosis of lumbar region with neurogenic claudication Peripheral arterial disease (HCC) retirement current use of anticoagulant Postural kyphosis of [...] ARTHROPLASTY Left 11/01/2021 Dr. Mckenzie, [facility]. SUBJECTIVE LIVES WITH: alone LIVING ENVIRONMENT: one level condo, with 4 steps to enter with B rails PRIOR LEVEL OF FUNCTION: independent mobility in her condo with no device, has a Rolator for long distance and when she goes to visit her sister who lives a block away Has a rooming house inspector, cooks herself EQUIPMENT OWNED: Rolator EQUIPMENT USED: Rolator when leaving the house SOCIAL SUPPORTS: daughter PATIENT/FAMILY GOAL: go home when I am better MENTAL STATUS/ORIENTATION: Alert and Oriented to x 4 OBJECTIVE PRECAUTIONS: fall and bed/chair alarm APPEARANCE/POSTURE: supine in bed asleep, daughter in room with her, agrees to therapy session, states I should get up and move around VITAL SIGNS: Resting BP: 116/62 Post-activity BP: Resting heart rate: 78 Post-activity heart rate: Resting O2 sat: 96 on RA Post-activity O2 sat: PAIN: Pre-therapy pain level: none Pain location: NA Pain intervention: NA Post-therapy pain level/response to intervention: R shoulder bothering her when trying to use it topull up, did not rate LE ASSESSMENTS: Right LE ROM: WFL Left LE ROM: WFL Right LE strength: 4/5 Left LE strength: 4/5 Coordination: NT Tone: normal MOBILITY: Bed mobility: rolls in bed with SBA Transfers: sup to sit with SBA, sit to stand from bed with SBA, sit to stand from toilet with min A Ambulation: Distance: 20 feet to the bathroom and did not want to use the walker, held onto bed rail and sink ,then 90 feet in [place] Assistive device: rolling walker Level of assist: contact guard Deviations: slow, reports feeling better than when she came in but still a little SOB near end of walk Stairs: Balance/Special Tests: Static sitting balance: good Dynamic sitting balance: good Static standing balance: good Dynamic standing balance: good- AMPAC: Basic Mobility [...] patient currently need: Walk in hospital room?: None How much help from another person does the patient currently need: Climbing 3-5 steps with a railing?: A little Total 6 Click Score (range 6-24): 23 6 click interpretation: AM-PAC 6 Click scores > 18 = Likely home discharge AM-PAC 6 Click scores < 18 = Likely require inpatient rehab or assisted placement at discharge APPEARANCE/POSTURE (end of session): supine in bed with call light in reach, daughter in room and kidney Dr came in to talk to her EDUCATION: functional transfer training, gait training , and role of PT evaluation RESPONSE TO EDUCATION: needs reinforcement ASSESSMENT PROBLEM LIST: decreased mobility and long standing deficits BARRIERS TO LEARNING: Physical BARRIERS TO DISCHARGE: Decreased endurance, Upper extremity weakness, Lower extremity weakness, andLong standing deficits REHAB POTENTIAL/PROGNOSIS: good PLAN PT Discharge Recommendations this date: PT Recommendation/Plan: Home with intermittent assist, Home Health PT Treatment Plan/Interventions: acute PT for gait, transfers, exercise PT Frequency during current admission: 3-5x/wk Equipment Recommendations: none - patient already owns DME at home Multi-Disciplinary Problems (from Physical Therapy) Active Problems Problem: PT Misc Start Date: 06/15/23 Goal Start Date Expected End Date End Date PT STG - perform sup to sit with mod independence 06/15/23 06/22/23 -- Goal Start Date Expected End Date End Date PT STG - perform sit to stand with mod independence 06/15/23 06/22/23 -- Goal Start Date Expected End Date End Date PT STG - gait with ww 150 feet with mod independence 06/15/23 06/22/23 -- Goal Start Date Expected End Date End Date PT STG - able to follow HEP indep for B LE x 15 reps 06/15/23 06/22/23 -- If this is the last note, please consider this the discharge summary. LER TENDER * Kavitha French, PT - 06/15/2023 1:07 PM CST Physical Therapy INITIAL EVALUATION (Still needs eval - requests later time in a.m. and again in p.m.) PATIENT'S NAME:Tess Benedict :1935 AGE:87 y.o. ROOM:[place] [address] TIME IN: TIME OUT: CURRENT DIAGNOSIS AND HOSPITAL COURSE: Acute on chronic CHF (87 yo female who presented to ED 06/14/23 with , intermittent chest pain . Findings of acute on chronic renal failure, acute respiratory distress, acute CHF exacerbation, hyponatremia, hyperkalemia,anemia, slight thrombocytosis, DANNY on CKD) NOTED HX: PVD with AIF, CHF, asthma, HTN, a-fib, GERD, PVD, RLS, essential tremor, morbid obesity with bariatric surgery, HLD, CKD, rheumatic fever, lymphedema, melanoma, PONV, tobacco abuse, refer to record for full medical hx. Patient Active Problem List Diagnosis Essential tremor Chronic GERD 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 Restless legs syndrome Bariatric surgery status Knee joint replacement status, bilateral History of malignant melanoma SOBOE (shortness of breath on exertion) Atrial fibrillation (CMS/HCC) (HCC) Spinal stenosis of lumbar region with neurogenic claudication Peripheral arterial disease (HCC) long term care social worker current use of anticoagulant Postural kyphosis of [...] ARTHROPLASTY Left 11/01/2021 Dr. Mckenzie, [facility]. SUBJECTIVE Per OT interview: Lives with: alone Receives assistance from / other social supports available: supportive daughter and sister who are able to arrange for 24 hour assistance upon discharge as needed Living environment (Type of residence / Entrance accessibility): 1 level condo, number of outside stairs: 2 steps with bilateral handrails, number of inside stairs:0 steps - no basement Bathroom location and setup: Main floor, Walk-in shower, and patient also has access to a tub/shower combination Prior level of function: Prior to admission patient independent with: Bathing, Dressing - Upper Body, Dressing - Lower Body,Eating / Feeding, Gait, Grooming, Laundry, Meal Preparation - Simple, Medication Management, PayingBills, Shopping, Toileting, and Transfers - Patient states My sister lives in the same complex andwe go out to eat a lot Patient total assistance with: House Cleaning - Light and House Cleaning - Heavy - Patient states I hire someone once a month Mobility device used prior to admission: Inside: wheeled walker PRN / Outside: 4-wheeled walker forlonger distances only Equipment available: Tub / Shower grab bars, Built-in shower seat, Hand-held shower hose, Tall toilet, Toilet grab bars, Straight cane, Wheeled walker, and 4-wheeled walker / Rollator Community access / Driving: Drives self Vocational / Occupation: retired Social roles / Hobbies: enjoys watching television, going out to eat with her sister, spending time/ visiting with friends, playing cards Patient / Family goal(s): To make sure my heart is working okay Fall(s) within the last 6 months: Yes 2 without injury MENTAL STATUS/ORIENTATION: Alert and Oriented to OBJECTIVE PRECAUTIONS: APPEARANCE/POSTURE: VITAL SIGNS: Resting BP: Post-activity BP: Resting heart rate: Post-activity heart rate: Resting O2 sat: Post-activity O2 sat: PAIN: Pre-therapy pain level: Pain location: Pain intervention: Post-therapy pain level/response to intervention: LE ASSESSMENTS: Right LE ROM: Left LE ROM: Right LE strength: Left LE strength: Coordination: Tone: MOBILITY: Bed mobility: Transfers: Ambulation: Distance: Assistive device: Level of assist: Deviations: Stairs: Number of steps: Assistive device: Level of assist: Balance/Special Tests: Static sitting balance: Dynamic sitting balance: Static standing balance: Dynamic standing balance: AMPAC: 6 click interpretation: AM-PAC 6 Click scores > 18 = Likely home discharge AM-PAC 6 Click scores < 18 = Likely require inpatient rehab or assisted placement at discharge APPEARANCE/POSTURE (end of session): EDUCATION: RESPONSE TO EDUCATION: ASSESSMENT PROBLEM LIST: BARRIERS TO LEARNING: BARRIERS TO DISCHARGE: REHAB POTENTIAL/PROGNOSIS: PLAN PT Discharge Recommendations this date: Treatment Plan/Interventions: Equipment Recommendations: Refer to multi-disciplinary care plan section for PT specific goals. If this is the last note, please consider this the discharge summary. LER TENDER * Sharee Galan VENDING MACHINE MECHANIC - 06/15/2023 12:55 PM CST General Medicine Daily Progress Reason for hospitalization: Dyspnea on exertion [R06.09] Acute on chronic heart failure, unspecified heart failure type (HCC) [I50.9] Chest pain, unspecified type [R07.9] Interval History: 06/15 - patient resting in bed currently admitted to the 9th floor, reports dyspnea has improved currently on room air, has trace edema to lower extremities, no dizziness or lightheadedness reported Objective: Vitals: 06/15/23 0900 06/15/23 1000 06/15/23 1100 06/15/23 1202 BP: 110/64 BP Location: Right arm Patient Position: Lying Pulse: 77 94 75 79 Resp: 18 Temp: 36.9 ??C (98.4 ??F) TempSrc: Axillary SpO2: 97% Weight: Height: I/O last 2 completed shifts: In: - Out: 600 [Urine:600] I/O this shift: In: 116 [P.O.:116] Out: - Medications: Scheduled Medications Medication Dose Route Frequency aspirin enteric coated tablet 81 mg 81 mg oral Daily carvediloL (COREG) tablet 6.25 mg 6.25 mg oral BID with meals (bkfst, dinner) cetirizine (ZyrTEC) tablet 10 mg 10 mg oral Nightly cholecalciferol (VITAMIN D-3) tablet 2,000 Units 2,000 Units oral Daily clonazePAM (KlonoPIN) tablet 0.5 mg 0.5 mg oral Nightly dapagliflozin propanediol (FARXIGA) tablet 10 mg 10 mg oral Daily fluticasone furoate-vilanteroL (BREO ELLIPTA) 200-25 mcg/dose inhaler 1 puff 1 puff inhalation Daily (RT) furosemide (LASIX) 10 mg/mL injection 40 mg 40 mg intravenous BID DIURETIC gabapentin (NEURONTIN) capsule 300 mg 300 mg oral TID metOLazone (ZAROXOLYN) tablet 2.5 mg 2.5 mg oral Every other day pantoprazole DR (PROTONIX) extended release tablet 40 mg 40 mg oral Daily pramipexole (MIRAPEX) tablet 0.5 mg 0.5 mg oral BID rivaroxaban (XARELTO) tablet 20 mg 20 mg oral Daily Physical Exam: Gen: appears in no acute distress Neuro: Alert, oriented in time place and person. Pulmonary: clear to ausculation; No crackles or rhonchi. Cardiovascular: regular rhythm. No murmurs heard. 1+ edema to left lower extremity GI: abdomen soft, non-tender; positive BS Musculoskeletal: No joint swelling, tenderness or warmth. Skin: No decubitus ulcers Labs: Labs reviewed Recent Results (from the past 24 hour(s)) Respiratory pathogen panel Nasopharyngeal Collection Time: 06/14/23 4:23 PM Specimen: Nasopharyngeal Result Value Ref Range Influenza A RNA Not Detected Not Detected Influenza B RNA Not Detected Not Detected RSV RNA Not Detected Not Detected COVID-19 RNA Not Detected Not Detected Coronavirus 229E RNA Not Detected Not Detected Coronavirus HKU1 RNA Not Detected Not Detected Coronavirus NL63 RNA Not Detected Not Detected Coronavirus OC43 RNA Not Detected Not Detected Adenovirus DNA Not Detected Not Detected Metapneumovirus RNA Not Detected Not Detected Rhinovirus/Enterovirus RNA Not Detected Not Detected Parainfluenza 1 RNA Not Detected Not Detected Parainfluenza 2 RNA Not Detected Not Detected Parainfluenza 3 RNA Not Detected Not Detected Parainfluenza 4 RNA Not Detected Not Detected B. pertussis DNA Not Detected Not Detected B. parapertussis DNA Not Detected Not Detected C. pneumoniae DNA Not Detected Not Detected M. pneumoniae DNA Not Detected Not Detected Comprehensive metabolic panel Collection Time: 06/14/23 6:52 PM Result Value Ref Range Sodium 133 (L) 135 - 145 mmol/L Potassium, pl 5.0 (H) 3.3 - 4.9 mmol/L Chloride 97 97 - 110 mmol/L CO2 26 22 - 32 mmol/L Anion gap 10 2 - 15 mmol/L BUN 37 (H) 6 - 25 mg/dL Creatinine 1.84 (H) 0.60 - 1.10 mg/dL Glucose 103 70 - 199 mg/dL Calcium 9.3 8.5 - 10.3 mg/dL Bilirubin, total 0.3 0.1 - 1.2 mg/dL Protein, pl 6.9 6.5 - 8.5 g/dL Albumin 3.5 3.5 - 5.0 g/dL Alk phos 125 40 - 130 Units/L ALT 12 7 - 45 Units/L AST 21 10 - 45 Units/L CBC with auto differential Collection Time: 06/14/23 6:52 PM Result Value Ref Range WBC 9.4 3.8 - 9.9 K/cumm Hgb 9.5 (L) 11.9 - 15.5 g/dL Hct 32.2 (L) 35.6 - 45.5 % Plt 419 (H) 150 - 400 K/cumm MPV 8.8 (L) 9.1 - 12.3 fL RBC 4.17 3.90 - 5.20 M/cumm MCV 77.2 (L) 81.3 - 96.4 fL MCH 22.8 (L) 27.1 - 33.3 pg MCHC 29.5 (L) 32.3 - 35.7 g/dL RDW CV 16.0 (H) 11.1 - 14.9 % RDW SD 44.9 35.7 - 48.1 fL NRBC abs 0.00 0.00 - 0.01 K/cumm Troponin T high-sensitivity series (baseline, 2hr, 4hr, 6hr) Collection Time: 06/14/23 6:52 PM Result Value Ref Range Trop T hs 22 (H) <=14 ng/L Pro B-type natriuretic peptide Collection Time: 06/14/23 6:52 PM Result Value Ref Range NT-proBNP 6,669 (H) <=450 pg/mL Differential, auto Collection Time: 06/14/23 6:52 PM Result Value Ref Range Neutrophil abs 7.2 (H) 1.5 - 6.5 K/cumm Imm gran abs 0.1 0.0 - 0.1 K/cumm Lymphocyte abs 1.0 0.8 - 3.3 K/cumm Monocyte abs 0.8 0.2 - 0.8 K/cumm Eosinophil abs 0.3 0.0 - 0.5 K/cumm Basophil abs 0.1 0.0 - 0.1 K/cumm Neutrophil pct 76.3 % Imm gran pct 0.8 % Lymphocyte pct 10.6 % Monocyte pct 8.3 % Eosinophil pct 3.3 % Basophil pct 0.7 % eGFR Collection Time: 06/14/23 6:52 PM Result Value Ref Range eGFR 27 mL/min/1.73 m2 Iron profile w/ IBC Collection Time: 06/14/23 6:52 PM Result Value Ref Range Iron 18 (L) 35 - 145 mcg/dl TIBC 438 (H) 250 - 400 mcg/dL Transferrin saturation 4 (L) 20 - 50 % Ferritin Collection Time: 06/14/23 6:52 PM Result Value Ref Range Ferritin 19 15 - 150 ng/mL Troponin T high-sensitivity 4-hour Collection Time: 06/14/23 10:42 PM Result Value Ref Range Trop T hs 21 (H) <=14 ng/L Trop T hs delta -1 ng/L Trop T hs interp Insignificant Troponin T high-sensitivity 6-hour Collection Time: 06/15/23 12:37 AM Result Value Ref Range Trop T hs 21 (H) <=14 ng/L Trop T hs delta -1 ng/L Trop T hs interp Insignificant CBC without differential Collection Time: 06/15/23 5:09 AM Result Value Ref Range WBC 9.0 3.8 - 9.9 K/cumm Hgb 9.1 (L) 11.9 - 15.5 g/dL Hct 31.1 (L) 35.6 - 45.5 % Plt 400 150 - 400 K/cumm MPV 9.1 9.1 - 12.3 fL RBC 4.03 3.90 - 5.20 M/cumm MCV 77.2 (L) 81.3 - 96.4 fL MCH 22.6 (L) 27.1 - 33.3 pg MCHC 29.3 (L) 32.3 - 35.7 g/dL RDW CV 16.0 (H) 11.1 - 14.9 % RDW SD 45.1 35.7 - 48.1 fL NRBC abs 0.00 0.00 - 0.01 K/cumm Basic metabolic panel Collection Time: 06/15/23 5:09 AM Result Value Ref Range Sodium 134 (L) 135 - 145 mmol/L Potassium, pl 4.1 3.3 - 4.9 mmol/L Chloride 95 (L) 97 - 110 mmol/L CO2 29 22 - 32 mmol/L Anion gap 10 2 - 15 mmol/L BUN 38 (H) 6 - 25 mg/dL Creatinine 1.68 (H) 0.60 - 1.10 mg/dL Glucose 94 70 - 199 mg/dL Calcium 9.2 8.5 - 10.3 mg/dL eGFR Collection Time: 06/15/23 5:09 AM Result Value Ref Range eGFR 30 mL/min/1.73 m2 Magnesium Collection Time: 06/15/23 8:42 AM Result Value Ref Range Magnesium 2.2 1.4 - 2.5 mg/dL Lipid panel Collection Time: 06/15/23 8:42 AM Result Value Ref Range Cholesterol 129 30 - 199 mg/dL Triglycerides 71 <=149 mg/dL HDL 40 >=40 mg/dL LDL, calculated 75 <=129 mg/dL Non-HDL Cholesterol 89 mg/dL Chol/HDL ratio 3 All lab results stated above were reviewed by me. [] I confirmed that the patient's Advance Care Plan is present, code status is documented, or surrogate decision maker is listed in the patient's medical record. Imaging: Results were reviewed independently by myself CXR on 06/14 no acute pulmonary AIF on 02/18/2022 showed peripheral vascular disease [...] post dilated using a 5 mm balloon. 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 Assessment & Plan: Acute on chronic diastolic heart failure - presented with chest pain and shortness of breath ProBNPis 6669. Further evaluation with 2D echo. On IV Lasix, Zaroxolyn. Farxiga and carvedilol started Cardiology service consulted. Chest pain on admission, atypical. Troponin trend is 22, 21, with delta of 1, nonspecific. Cardiology consult reviewed Acute on chronic renal failure with creatinine of 1.84 with GFR of 27, follow, previously on 05/08/2023 creatinine was 1.25 with GFR of 42. Renal service consulted. Monitor renal function while on IVdiuretics Acute respiratory distress likely secondary to CHF exacerbation now resolved patient is on room air Asthma, not in exacerbation. On Breo, albuterol MDI as needed, duo nebs as needed. Hypertension. Follow blood pressures. On Zaroxolyn, IV Lasix. Atrial fibrillation, rate controlled. On Xarelto. GERD. On Protonix. PVD. Status post AIF see results above, continue aspirin Restless leg syndrome. On Mirapex. Essential tremor. On propranolol as needed. Morbid obesity Hyponatremia of 133 present on admission Hyperkalemia of 5.0, present on admission renal failure related, follow. Microcytic anemia hemoglobin stable continue to follow; iron panel Slight thrombocytosis of 419, follow. Resolved Prophylaxis. Xarelto, Protonix. Sharee Galan, ANP Team [facility] [phone] 06/15/2023 12:55 PM LER TENDER * Kavitha French, PT - 06/15/2023 10:31 AM CST Physical Therapy Still needs eval - just returned to bed and requests a later PT time. Kavitha French, PT 06/15/23 10:32 AM LER TENDER * Eri Dutton, OT - 06/15/2023 8:53 AM CST Occupational Therapy NOTE / SESSION TYPE: Initial Evaluation Patient Name: Tess Benedict Date of : 1935 Age / Sex: 87 y.o. / female Room: [place] [address] Admit Date: 06/14/2023 Date of Service: 06/15/23 Time In: 08:53 Time Out: 09:31 Primary Diagnosis: Acute on chronic heart failure, unspecified heart failure type (HCC) HPI: Tess Benedict is a 87 y.o. female who presents with SOB x1 month, intermittent chest pain x2-3 weeks. Patient admitted with acute on chronic diastolic CHF, acute respiratory distress with hypoxia,, HTN, a-fib, GERD, PVD, RLS, essential tremor, obesity, hyponatremia, hyperkalemia, acute on chronic renal failure, anemia, slight thrombocytosis, microcytosis Notable History: CHF, asthma, a-fib, DVT, GERD, HTN, and See Below. Past Medical History: Diagnosis Date Allergic rhinitis [...] ARTHROPLASTY Left 11/01/2021 Dr. Mckenzie, [facility]. Precautions (Including Weight-Bearing): Fall risk and Bed / chair alarm Caregiver Present for Session (Yes or No): No SUBJECTIVE: Patient Comment: I was in the ER for 6 hours. I think it was at least 3 o'clock I have Life Alert that goes beyond the house. It goes all over the [place] . Pain Assessment: Pre-therapy pain level: 0 / 10 Pain location: No pain - Location N/A Pain intervention(s): No pain - Intervention N/A Post-therapy pain level: 0 / 10 Pain scale used: 0-10 SCALE Prior Living Environment and Level of Function: Lives with: alone Receives assistance from / other social supports available: supportive daughter and sister who are able to arrange for 24 hour assistance upon discharge as needed Living environment (Type of residence / Entrance accessibility): 1 level condo, number of outside stairs: 2 steps with bilateral handrails, number of inside stairs:0 steps - no basement Bathroom location and setup: Main floor, Walk-in shower, and patient also has access to a tub/shower combination Prior level of function: Prior to admission patient independent with: Bathing, Dressing - Upper Body, Dressing - Lower Body,Eating / Feeding, Gait, Grooming, Laundry, Meal Preparation - Simple, Medication Management, PayingBills, Shopping, Toileting, and Transfers - Patient states My sister lives in the same complex andwe go out to eat a lot Patient total assistance with: House Cleaning - Light and House Cleaning - Heavy - Patient states I hire someone once a month Mobility device used prior to admission: Inside: wheeled walker PRN / Outside: 4-wheeled walker forlonger distances only Equipment available: Tub / Shower grab bars, Built-in shower seat, Hand-held shower hose, Tall toilet, Toilet grab bars, Straight cane, Wheeled walker, and 4-wheeled walker / Rollator Community access / Driving: Drives self Vocational / Occupation: retired Social roles / Hobbies: enjoys watching television, going out to eat with her sister, spending time/ visiting with friends, playing cards Patient / Family goal(s): To make sure my heart is working okay Fall(s) within the last 6 months: Yes 2 without injury OBJECTIVE: Appearance: Presentation upon OT arrival: Patient Supine with head of bed elevated Presentation upon OT departure: Patient Sitting in bedside recliner Bed / chair alarm in place and activated upon OT departure: Yes Call light within arms reach of patient at end of session: Yes Completed patient handoff and notified REHABILITATION SERVICES COUNSELOR / RN, name: Sue, of patient's location and functional status upon completion of session Vital Signs: Heart rate at rest: 87 bpm SPO2 at rest: 95 % Heart rate with activity: 86 bpm SPO2 with activity: 92 % Oxygen LPM: room air Cognitive / Perceptual Assessment: Alert and oriented x4 (person, place, time, situation) Follows one-step commands 100% with minimal instruction UE ROM / Strength / Coordination: (A)ROM - Right: WFL throughout except shoulder flexion / abduction ~45 degrees Strength - Right: 4/5 throughout except shoulder flexion / abduction 2+/5 (A)ROM - Left: WFL throughout except shoulder flexion / abduction ~90 degrees Strength - Left: 4-/5 throughout except shoulder flexion / abduction 3-/5 Hand Dominance: Right Cmo & President Strength (Right) good Cmo & President Strength (Left): poor Right Serial Opposition: Decreased rate Left Serial Opposition: Decreased rate and Decreased rhythm Balance: Static sitting balance: good balance supported on EOB Dynamic sitting balance: good- balance supported on EOB Mobility / Transfers: Bed mobility (Components & Assistance): supine to sit bed mobility using bedrail with supervision assistance and increased time Transfer(s): bed to and from standing position without device with close supervision assistance forbalance and safety Bed to standing position to raised toilet seat using furniture walking technique for UE support with contact guard assistance for balance and safety Raised toilet seat to and from standing position using grab bar with close supervision assistance for balance and safety Raised toilet seat to standing position to bedside recliner using furniture walking technique for UE support with contact guard assistance for balance and safety Activities of Daily Living / Living Skills: UE dressing: Patient completed upper body dressing of Hospital gown as robe while Standing at bedside recliner with overall Moderate assistance. Patient required assistance for threading LUE and pulling around back. Lower Body Dressing: Patient completed lower body dressing of Underwear while Sitting on EOB and Standing at EOB with overall Incidental touching / contact guard assistance. Patient required assistance for physical assistance for balance, set-up of items, and safety. Footwear: Not assessed due to shortness of breath with exertion during donning of underwear. However, simulated at a supervision assistance level while sitting EOB Other: TOILETING LOCATION: SITTING ON RAISED TOILET SEAT without ARMS and STANDING AT RAISED TOILET SEAT without ARMS TASKS COMPLETED: HYGIENE MANAGEMENT, CLOTHING MANAGEMENT PRE-TOILETING, and CLOTHING MANAGEMENT POST-TOILETING OVERALL ASSIST LEVEL: SUPERVISION ASSISTANCE / VERBAL CUES ADDITIONAL DOCUMENTATION: Patient required close supervision assistance for balance and safety GROOMING TASKS (INCLUDING ORAL HYGIENE) LOCATION OF GROOMING TASKS: Standing at bedside recliner TASKS COMPLETED: WASHING HANDS - using hand director volunteer services OVERALL ASSIST LEVEL: SET-UP / CLEAN-UP ASSISTANCE ADDITIONAL DOCUMENTATION: Patient required setup of items ASSESSMENT: Rehab Potential (Prognosis): good Problem List: Patient has impairments including: Decreased UE ROM , Decreased UE strength, Decreased coordination, Decreased balance, Decreased mobility, Decreased endurance, Decreased ADL independence, and Medical complications . Barriers to Discharge: Decreased endurance, Upper extremity weakness, Lower extremity weakness, Medical complications, and Decreased mobility PLAN: OT Discharge Recommendations this date: OT RECOMMENDATIONS: OT Recommendation: Home with intermittent assist, Home Health OT Patient at risk for: Patient at high risk for: Readmission, Falls, Injury due to decreased ability to care for self, Injury due to reduced functional status, Injury at home as patient has not returned to prior level of function, Prolonged dependence for self care tasks Additional recommendation comments: Justification of discharge recommendations flow sheet completed: Yes Frequency of therapy:OT Frequency during current admission: 3-5x/wk Intervention / Education needs: ADL training, Compensatory ADL strategies, Adaptive equipment education, Functional transfer training, Safety education, Pursed lip breathing / Relaxation techniques, UE home exercise program education, Family training as appropriate, IADL training, and Energy conserv ation techniques Education provided: Patient has been educated on Role of OT, OT plan of care, Functional transfer training, and Safety education. Individual(s) verbalized understanding and needs ongoing reinforcement. Short Term Goals / Care Plan: Multi-Disciplinary Problems (from Occupational Therapy) Active Problems Problem: OT [facility] Start Date: 06/15/23 Goal Start Date Expected End Date End Date OT [facility] - Mis 1 06/15/23 06/22/23 -- Goal Details: Patient will complete bathing with supervision assistance and using adaptive equipment PRN one time Goal Start Date Expected End Date End Date OT [facility] - Mis 2 06/15/23 06/22/23 -- Goal Details: Patient will complete UE dressing with modified independence and using appropriate device for item retrieval PRN one time Goal Start Date Expected End Date End Date OT [facility] - Mis 3 06/15/23 06/22/23 -- Goal Details: Patient will complete LE dressing with modified independence and using appropriate device for item retrieval PRN one time Goal Start Date Expected End Date End Date OT [facility] - [facility] 4 06/15/23 06/22/23 -- Goal Details: Patient will complete bed/toilet transfers with modified independence and using appropriate device PRN one time each Goal Start Date Expected End Date End Date OT [facility] - Mis 5 06/15/23 06/22/23 -- Goal Details: Patient will complete pursed lip breathing / relaxation techniques with minimal verbal cues to increase tolerance for ADLS one time Goal Start Date Expected End Date End Date OT [facility] - Misc 6 06/15/23 06/22/23 -- Goal Details: Patient will incorporate energy conservation techniques during ADLS without verbal cues and following education one time If this is the last note, consider this the discharge summary Eri Dutton OT 06/15/23 LER TENDER documented in this encounter H&P Notes * Jahaira Dc MD - 06/14/2023 10:22 PM CST General Medicine History and Physical SUBJECTIVE: Patient is a 87 y.o. female with chief complaint of shortness of breath, chest pain. HPI: Ms. Benedict is a 67-year-old white female with past history of hypertension, atrial fibrillation, asthma, PVD, who presented to the emergency room for the above reasons. Patient states that she has had worsening shortness of breath for the past several weeks. Currently describes becoming dyspneic walking around her house. She also reports on and off right-sided chest pain that radiates into her neck. Says that the chest pain occurs at rest and with exertion. Patient reports some lower extremity swelling, left worse than right. Denies having fevers, chills, night sweats, nausea, vomiting, abdominal pain, diarrhea, dysuria, etc.. Past Medical History: Hypertension. Atrial fibrillation. Asthma. GERD. History of melanoma, status post resection, per prior notes. Osteoarthritis. PVD. AIF on 02/18/2022 showed peripheral vascular [...] device. Restless leg syndrome. Essential tremor. Obesity. Past Surgical History: Melanoma removal in 1975, per prior notes. Gastroplasty in 1984, per prior notes. Cholecystectomy and hernia repair in 1994, per prior notes. Arthroscopic knee surgery in 2003, per prior notes. 05/20/2009, Phacoemulsification of right eye with implantation of posterior chamber lens, MONICA model #MB5087, +23.5 diopter, serial #[id number]. 03/21/2012, Phacoemulsification of left eye with implantation of posterior chamber lens, West Model ZCB00, +24 diopter, serial number [id number]. 12/25/2013, Excision of pigmented lesion, left lower eyelid lateral part, with primary surgical defect of 1 x 0.5 cm. Reconstruction of secondary surgical defect, left lateral lower eyelid, 1 x 1 cm, with adjacent tissue transfer. 04/22/2014, Right total knee arthroplasty with [employer]Match distal femoral cutting block. 02/07/2017, Left total knee arthroplasty. 02/07/2017, Right total knee arthroplasty. 07/10/2019, Right total hip arthroplasty. 11/01/2021, Left total [...] post dilated using a 5 mm balloon. Allergies: Allergen Reactions 1. Celecoxib Anaphylaxis 2. Scopolamine Mental status changes Delirium postop after joint replacement due to this medicine 3. Sulfa (Sulfonamide Antibiotics) Anaphylaxis 4. Amlodipine Swelling 5. Lisinopril Swelling 6. Trazodone Swelling Tongue 7. Cipro [Ciprofloxacin Hcl] Vomiting 8. Cymbalta [Duloxetine] Fatigue Sleepiness, tiredness possibly related to 20 mg morning dose of this medicine discontinued 11/30/2020 9. Sinemet [Carbidopa-Levodopa] Other (See comments) Night hines Social History: Mother at 98 from old age. Father had CVA. Family History: Patient states that she quit smoking 35 years ago, prior to that smoked 2 packs a day for 10-20 years. Denies alcohol use. Review of Systems: All review of systems are negative except as mentioned in HPI. OBJECTIVE: Vitals: Arrival Vitals [06/14/231621] Temp 36.3 ??C (97.4 ??F) Pulse 88 Resp 18 BP 149/78 SpO2 96 % Temp src Oral Heart Rate Source Patient Position BP Location FiO2 (%) 24hr Min/Max: Temp Min: 36.3 ??C (97.4 ??F) Max: 36.3 ??C (97.4 ??F) Pulse Min: 74 Max: 88 BP Min: 140/84 Max: 149/78 Resp Min: 16 Max: 18 SpO2 Min: 96 % Max: 98 % Most Recent : Vitals: 06/14/23162106/14/232149 BP: 149/78 140/84 Pulse: 88 74 Resp: 18 16 Temp: 36.3 ??C (97.4 ??F) TempSrc: Oral SpO2: 96% 98% Weight: 86.2 kg (190 lb) Height: 152.4 cm (5') No intake/output data recorded. Physical Exam: General Appearance: Alert, cooperative, no distress, appears stated age, well developed, well nourished, obese Head: Normocephalic, without obvious abnormality, atraumatic Eyes: Conjunctiva/corneas clear, EOM's intact, both eyes, anicteric Ears: Normal external ear canals, both ears Nose: Nares normal, septum midline, mucosa normal, no drainage Throat: Lips, mucosa, and tongue normal; mucous membranes moist Neck: Supple Lungs: Clear to auscultation bilaterally, respirations unlabored Cardiovascular: Ir ir Abdomen: Soft, non-tender, bowel sounds decr, non-distended, obese Extremities: Extremities normal, atraumatic, no cyanosis or edema Skin: Skin color, texture, turgor normal, no rashes Neurologic: Alert & oriented x 4, CNII-XII intact, grossly nonfocal Psychosocial: Normal affect and mood Lab/Radiology/Diagnostic Review: Recent Labs Lab Units 06/14/23 1852 WBC K/cumm 9.4 HEMOGLOBIN g/dL 9.5* HEMATOCRIT % 32.2* PLATELETS K/cumm 419* Recent Labs Lab Units 06/14/23 1852 SODIUM mmol/L 133* POTASSIUM PLASMA mmol/L 5.0* CHLORIDE mmol/L 97 CO2 mmol/L 26 ANIONGAP mmol/L 10 GLUCOSE mg/dL 103 BUN SERUM mg/dL 37* CREATININE mg/dL 1.84* CALCIUM mg/dL 9.3 ALBUMIN g/dL 3.5 ALK PHOS Units/L 125 ALT Units/L 12 AST Units/L 21 BILIRUBIN TOTAL mg/dL 0.3 ASSESSMENT/PLAN: Shortness of breath. Admission chest x-ray showed no active pulmonary disease. Differential includes heart failure. Suspected congestive heart failure exacerbation. ProBNP is 6669. Further evaluation with 2D echo. On IV Lasix, Zaroxolyn. Cardiology service consulted. Chest pain on admission, atypical. Troponin trend is 22, 21, with delta of 1, nonspecific. Asthma, not in exacerbation. On Breo, albuterol MDI as needed, duo nebs as needed. Hypertension. Follow blood pressures. On Zaroxolyn, IV Lasix. Atrial fibrillation, rate controlled. On Xarelto. GERD. [...] lumen despite the use of re-entry device. On aspirin. Restless leg syndrome. On Mirapex. Essential tremor. On propranolol as needed. Obesity. Hyponatremia of 133, follow. Hyperkalemia of 5.0, renal failure related, follow. Acute on chronic renal failure with creatinine of 1.84 with GFR of 27, follow, previously on 05/08/2023 creatinine was 1.25 with GFR of 42. Renal service consulted. Anemia with hemoglobin of 9.5, follow. Slight thrombocytosis of 419, follow. Microcytosis, will check iron panel. Prophylaxis. Xarelto, Protonix. LER TENDER LER TENDER documented in this encounter Consult Notes * Lucas Rasheed MD - 06/15/2023 4:05 PM CSTAssociated Order(s): IP CONSULT TO NEPHROLOGY Nephrology Consult Reason for Consult: Renal failure. Requesting Provider: Dr Muhammad Subjective Patient is a 87 y.o. female with chief complaint of shortness of breath.. HPI: The patient is an 87-year-old female with past medical history of CHF, hypertension and atrial fibrillation, who presented with shortness of breath. She was found to be in decompensated CHF. She had normal vital signs and recorded urine output of 600 mL, the last 24 hours. She was found with a serum creatinine of 1.8, down to 1.6 today, whereas her baseline seems to be 1.2. She has not aware of any history of kidney disease. She recently suffered urinary tract infection for which was treated with antibiotics. With diuretics, she reports feeling much better. Past Medical History: Diagnosis Date Allergic rhinitis [...] ARTHROPLASTY Left 11/01/2021 Dr. Mckenzie, [facility]. Medications Prior to Admission Medication Sig [...] tablet (2,000 Units total) by mouth daily clonazePAM (KlonoPIN) 0.5 mg tablet Take 1 tablet (0.5 mg total) by mouth nightly 30 tablet 1 empagliflozin (JARDIANCE) 10 mg tablet Take 1 tablet (10 mg total) by mouth daily 30 tablet 11 felodipine (PLENDIL) 5 mg 24 hr tablet Take 1 tablet (5 mg total) by mouth daily 90 tablet 2 fluticasone propion-salmeteroL (ADVAIR DISKUS) 100-50 mcg/dose diskus inhaler Inhale 1 puff 2 (two)times a day Rinse mouth with water after use. Do not swallow. 1 each 4 furosemide (LASIX) 20 mg tablet Take 1 tablet (20 mg total) by mouth 2 (two) times a day 180 tablet3 gabapentin (NEURONTIN) 300 mg capsule Take 1 capsule (300 mg total) by mouth 3 (three) times a day 90 capsule 0 metOLazone (ZAROXOLYN) 2.5 mg tablet Take 1 tablet (2.5 mg total) by mouth every other day pantoprazole DR (PROTONIX) 40 mg EC tablet Take 1 tablet (40 mg total) by mouth daily 30 tablet 11 polyethylene glycol (MIRALAX) 17 gram packet Take 1 packet (17 g total) by mouth daily as needed for constipation potassium chloride ER 20 mEq CR tablet Take 1 tablet (20 mEq total) by mouth daily pramipexole (MIRAPEX) 0.5 mg tablet Take 1 tablet (0.5 mg total) by mouth 2 (two) times a day 60 tablet 3 propranoloL (INDERAL) 20 mg tablet Take 1 tablet (20 mg total) by mouth 2 (two) times a day as needed (Tremor) 180 tablet 2 rivaroxaban (XARELTO) 20 mg tablet Take 1 tablet (20 mg total) by mouth daily 30 tablet 11 spironolactone (ALDACTONE) 25 mg tablet Take 1 tablet (25 mg total) by mouth 2 (two) times a day 90tablet 3 Allergies Allergen Reactions Celecoxib Anaphylaxis Scopolamine Mental [...] Types: Cigarettes Quit date: 1981 Years since quittin.0 Smokeless tobacco: Never Substance and Sexual Activity [...] Arthritis; Abdominal Aortic Aneurysm Father COPD Father Current Medications: Scheduled Meds:aspirin, 81 mg, oral, Daily carvediloL, 6.25 mg, oral, BID with meals (bkfst, dinner) cetirizine, 10 mg, oral, Nightly cholecalciferol, 2,000 Units, oral, Daily clonazePAM, 0.5 mg, oral, Nightly dapagliflozin propanediol, 10 mg, oral, Daily fluticasone furoate-vilanteroL, 1 puff, inhalation, Daily (RT) furosemide, 40 mg, intravenous, BID DIURETIC gabapentin, 300 mg, oral, TID metOLazone, 2.5 mg, oral, Every other day pantoprazole DR, 40 mg, oral, Daily pramipexole, 0.5 mg, oral, BID rivaroxaban, 20 mg, oral, Daily Continuous Infusions: PRN Meds:. acetaminophen albuterol HFA cyclobenzaprine ipratropium-albuteroL ondansetron polyethylene glycol propranoloL Review of systems As per history of present illness, otherwise negative Objective Vitals: 24hr Min/Max: Temp Min: 36.2 ??C (97.2 ??F) Max: 37 ??C (98.6 ??F) Pulse Min: 63 Max: 94 BP Min: 110/64 Max: 152/88 Resp Min: 16 Max: 26 SpO2 Min: 94 % Max: 98 % Most Recent: Vitals: 06/15/23 1202 BP: 110/64 Pulse: 79 Resp: 18 Temp: 36.9 ??C (98.4 ??F) SpO2: 97% I/O last 2 completed shifts: In: - Out: 600 [Urine:600] I/O this shift: In: 338 [P.O.:338] Out: - Physical Exam: Constitutional: alert and oriented. Appears well-developed and well-nourished, in no distress. Head: Normocephalic. Eyes: Pupils are unremarkable Neck: Neck supple. Cardiovascular: Normal rate and regular rhythm. No murmur heard. Pulmonary/Chest: Breath sounds normal. Abdominal: Soft. Musculoskeletal: exhibits no edema. Neurological: alert and moves all 4 limbs. Lab/Radiology/Diagnostic Review: I have reviewed all relevant laboratory and imaging results and found improving renal function. Additional Labs: Recent Labs Lab Units 06/15/23 0509 06/14/23 1852 SODIUM mmol/L 134* 133* POTASSIUM PLASMA mmol/L 4.1 5.0* CHLORIDE mmol/L 95* 97 CO2 mmol/L 29 26 BUN SERUM mg/dL 38* 37* CREATININE mg/dL 1.68* 1.84* KAY-SUP-JESQUAK mL/min/1.73 m2 30 27 GLUCOSE mg/dL 94 103 CALCIUM mg/dL 9.2 9.3 ALBUMIN g/dL -- 3.5 Recent Labs Lab Units 06/15/23 0509 06/14/23 1852 WBC K/cumm 9.0 9.4 HEMOGLOBIN g/dL 9.1* 9.5* HEMATOCRIT % 31.1* 32.2* PLATELETS K/cumm 400 419* NEUTROS PCT % -- 76.3 LYMPHS PCT % -- 10.6 MONOS PCT % -- 8.3 EOS PCT % -- 3.3 ASSESSMENT & PLAN 1. Acute kidney injury on CKD 3A. --acute kidney injury due to cardiorenal syndrome and underlying CKD 3A, due to hypertensive nephrosclerosis. --baseline serum creatinine 1.2. --renal function improving with diuretics, which will continue. 2. CHF. --decompensated and this was precipitated by dietary indiscretion. --diuretics, with fluid and salt restriction. --further management per Cardiology. 3. Hypertension. --well controlled. Thank you for the courtesy of this consultation. Voice recognition software was used to complete this document, therefore, space officer variances may occur. Lucas Rasheed MD [facility] Office: [phone] / [phone] Exchange: [phone] LER TENDER * Carlos Lakhani NP - 06/15/2023 7:48 AM CSTAssociated Order(s): IP CONSULT TO CARDIOLOGY Cardiology Consultation note Admit date: 06/14/2023 Reason for Consultation: Heart failure History of Present Illness: Tess Benedict is a 87 y.o. female with past history of hypertension, atrial fibrillation, asthma, PVD, who presented to the emergency room for the heart failure and chest pain. Patient stated that she has had worsening shortness of breath for the past several weeks. Currently states that she was becoming dyspneic walking around her house. She also reported on and off right-sided chest pain that radiates into her neck. Says that the chest pain occurs at rest and with exertion. Patient reported some lower extremity swelling, left worse than right. Denies having fevers, chills, night sweats,nausea, vomiting, abdominal pain, diarrhea, dysuria. Her troponins were flat. Her EKG shows atrial fibrillation for which she is persistently and asymptomatically in. It is rate controlled. She has ongoing complaints of fatigue, weakness, shortness of breath, bilateral extremity edema and chest pain. Her chest pain is better since she got here. She remains on IV Lasix. She has been taking her medication at home and her diet has not changed. She states she has gained almost ten pounds in a week.She has been sleeping up in chair at night this week. All questions were answered verbalized understanding of plan of care. Family history is not related this admission. 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 CHF (congestive heart failure) ([facility] ([facility] Cough DVT (deep venous thrombosis) ([facility] ([facility]) 1976 [...] ARTHROPLASTY Left 11/01/2021 Dr. Mckenzie, [facility]. Allergies Allergen Reactions Celecoxib Anaphylaxis Scopolamine Mental status changes Delirium postop after joint replacement due to this medicine Sulfa (Sulfonamide Antibiotics) Anaphylaxis Amlodipine Swelling Lisinopril Swelling Trazodone Swelling Tongue Cipro [Ciprofloxacin Hcl] Vomiting Cymbalta [Duloxetine] Fatigue Sleepiness, tiredness possibly related to 20 mg morning dose of this medicine discontinued 11/30/2020 Sinemet [Carbidopa-Levodopa] Other (See comments) Night hines Patient Vital Signs for the past 24 hrs: BP MAP (mmHg) Temp Temp src Pulse Resp SpO2 Height Weight 06/15/23 0533 117/62 75 36.2 ??C (97.2 ??F) Oral 78 20 96 % -- -- 06/15/23 0210 121/66 77 36.9 ??C (98.4 ??F) Oral 68 20 97 % 152.4 cm (5') 88 kg (194 lb 0.1 oz) 06/15/23 0125 -- 25 -- -- 72 20 96 % -- -- 06/15/23 0105 152/88 105 -- -- 71 21 95 % -- -- 06/15/23 0020 128/74 91 -- -- 78 22 96 % -- -- 06/14/23 2320 130/81 97 -- -- 74 20 96 % -- -- 06/14/235 130/98 109 -- -- 63 26 94 % -- -- 06/14/23 2150 140/84 101 -- -- 74 16 98 % -- -- 06/14/23 1622 149/78 -- 36.3 ??C (97.4 ??F) Oral 88 18 96 % 152.4 cm (5') 86.2 kg (190 lb) Intake/Output Summary (Last 24 hours) at 06/15/2023 0798 Last data filed at 06/15/2023 0533 Gross per 24 hour Intake -- Output 600 ml Net -600 ml Wt Readings from Last 3 Encounters: 06/15/23 88 kg (194 lb 0.1 oz) 06/13/23 91.8 kg (202 lb 6.4 oz) 06/07/23 88.5 kg (195 lb) Cardiac Rhythm: Atrial fibrillation (06/15/23 0430) Physical Exam: General: Fatigue and weak Skin: Warm and dry Head: Normocephalic, oral mucosa and conjunctivae normal Neck: No thyromegaly or bruits. Carotid pulses 2+ Lungs: Decreased breath sounds bilateral Cardiac: Irregular rate and rhythm Abd: Soft, nontender, BS active, no hepatosplenomegaly or masses, no abdominal bruit or enlarged aortic pulsation Extremities: No clubbing, cyanosis. Trace bilateral extremity edema. Femoral pulses 2+. Pedal pulses 2+ Musculoskeletal: Muscle strength normal. No scoliosis. Neurologic: Oriented to person, place, and time. Mood not depressed. Review of System: Constitutional: Positive for fatigue and weakness Psychiatric: Negative for depression and anxiety. Skin: Negative for rash and itching. HENT: Negative for headaches, lightheadedness, and congestion. Negative for vertigo. Eyes: Negative for blurred vision and itching. Cardiovascular: Positive for chest pain, Negative for palpitations and syncope. Respiratory: Negative for cough and sputum production. Positive for shortness of breath. Gastrointestinal: Negative for nausea, vomiting, abdominal pain and diarrhea. Musculoskeletal: Positive for bilateral extremity edema Neurological: Negative for dizziness, focal weakness, tremors, and loss of consciousness. Family History Problem Relation Age of Onset Cancer Other Family history of Cancer, unknown; Arthritis Other Family history of Arthritis; Abdominal Aortic Aneurysm Father COPD Father Social History Tobacco Use Smoking status: Former Packs/day: 2.00 Years: 30.00 Additional pack years: 0.00 Total pack years: 60.00 Types: Cigarettes Quit date: 1981 Years since quittin.0 Smokeless tobacco: Never Substance and Sexual Activity Drug use: Never Sexual activity: Defer Alcohol Use: Not At Risk (12/28/2022) AUDIT-C Frequency of Alcohol Consumption: Monthly or less Average Number of Drinks: 1 or 2 Frequency of Binge Drinking: Never Prior to Admission medications Medication Sig Start Date End Date Taking? Authorizing Provider albuterol HFA (Proventil HFA) 90 mcg/actuation inhaler Inhale 2 puffs every 6 (six) hours as neededfor wheezing or shortness of breath 06/13/23 Sabine Dasilva NP aspirin 81 mg enteric coated tablet Take 1 tablet (81 mg total) by mouth daily Latasha Flannery MD cetirizine (ZyrTEC) 10 mg tablet Take 1 tablet (10 mg total) by mouth nightly 12/08/22 Pepper Pelaez MD cholecalciferol (VITAMIN D-3) 2000 unit tablet Take 1 tablet (2,000 Units total) by mouth daily ProviderLatasha MD clonazePAM (KlonoPIN) 0.5 mg tablet Take 1 tablet (0.5 mg total) by mouth nightly 05/30/23 11/26/23 Pepper Pelaez MD empagliflozin (JARDIANCE) 10 mg tablet Take 1 tablet (10 mg total) by mouth daily 05/29/23 Chandu Arauz MD felodipine (PLENDIL) 5 mg 24 hr tablet Take 1 tablet (5 mg total) by mouth daily 12/08/22 Pepper Pelaez MD fluticasone propion-salmeteroL (ADVAIR DISKUS) 100-50 mcg/dose diskus inhaler Inhale 1 puff 2 (two)times a day Rinse mouth with water after use. Do not swallow. 03/09/23 Sabine Dasilva NP furosemide (LASIX) 20 mg tablet Take 1 tablet (20 mg total) by mouth 2 (two) times a day 02/21/23 Chandu Arauz MD gabapentin (NEURONTIN) 300 mg capsule Take 1 capsule (300 mg total) by mouth 3 (three) times a day 04/21/23 Sabine Dasilva NP metOLazone (ZAROXOLYN) 2.5 mg tablet Take 1 tablet (2.5 mg total) by mouth every other day Latasha Flannery MD pantoprazole DR (PROTONIX) 40 mg EC tablet Take 1 tablet (40 mg total) by mouth daily 12/31/22 12/31/23 Chaya Kiser MD polyethylene glycol (MIRALAX) 17 gram packet Take 1 packet (17 g total) by mouth daily as needed for constipation Latasha Flannery MD potassium chloride ER 20 mEq CR tablet Take 1 tablet (20 mEq total) by mouth daily Latasha Flannery MD pramipexole (MIRAPEX) 0.5 mg tablet Take 1 tablet (0.5 mg total) by mouth 2 (two) times a day 05/25/23 05/24/24 Klaus Deshpande MD propranoloL (INDERAL) 20 mg tablet Take 1 tablet (20 mg total) by mouth 2 (two) times a day as needed (Tremor) 12/08/22 Pepper Pelaez MD rivaroxaban (XARELTO) 20 mg tablet Take 1 tablet (20 mg total) by mouth daily 12/08/22 Pepper Pelaez MD spironolactone (ALDACTONE) 25 mg tablet Take 1 tablet (25 mg total) by mouth 2 (two) times a day 01/27/23 Maude Harris, NOEL cyclobenzaprine (FLEXERIL) 10 mg tablet Take 1 tablet (10 mg total) by mouth nightly as needed for muscle spasms 11/16/21 12/06/21 Puma Johnson MD Recent Labs Lab Units 06/15/23 0509 06/14/23 1852 SODIUM mmol/L 134* 133* POTASSIUM PLASMA mmol/L 4.1 5.0* CHLORIDE mmol/L 95* 97 CO2 mmol/L 29 26 BUN SERUM mg/dL 38* 37* CREATININE mg/dL 1.68* 1.84* [id number] mL/min/1.73 m2 30 27 GLUCOSE mg/dL 94 103 CALCIUM mg/dL 9.2 9.3 ALBUMIN g/dL -- 3.5 Recent Labs Lab Units 06/14/23 1852 ALK PHOS Units/L 125 BILIRUBIN TOTAL mg/dL 0.3 TOTAL PROTEIN g/dL 6.9 ALT Units/L 12 AST Units/L 21 Recent Labs Lab Units 06/15/23 0509 06/14/23 1852 WBC K/cumm 9.0 9.4 HEMOGLOBIN g/dL 9.1* 9.5* HEMATOCRIT % 31.1* 32.2* PLATELETS K/cumm 400 419* Lab Results Component Value Date TSH 2.56 12/09/2022 FREET4 1.6 12/09/2022 Lab Results Component Value Date CHOL 185 05/23/2022 TRIG 119 05/23/2022 HDL 54 05/23/2022 No results found for: TROPONINT Telemetry: Cardiac Rhythm: Atrial fibrillation (06/15/23 0430) Radiology Testing: XR Chest PA Lateral 2 Views Result Date: 06/14/2023 No active pulmonary disease. Electronically signed by: Rom Hull M.D. Cardiology Testing: ProBNP: EK02/16/23 Vent Rate: 64 bpm RR Interval: 924 msec WI Interval: 0 msec QRS Duration: 90 msec QT Interval: 403 msec QTC Interval: 413 msec P-R-T [place]: 0 - 75 - 27 degrees ATRIAL FIBRILLATION WITH CONTROLLED VENTRICULAR RESPONSE Echocardiogram: 06/09 Conclusions: Normal left ventricular systolic function with [...] Technically difficult study with suboptimal views. Stress Test: Cardiac Cath: 04/09 IMPRESSION 1. Patent previously implanted stents in the left iliac vessels. 2. Patent previously implanted stent in the left superficial femoral artery as well as prior angioplasty site in the left popliteal artery. 3. Three-vessel runoff bilaterally. 4. 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 5. Successful vascular access closure. AIF on 02/18/2022 showed peripheral vascular disease [...] post dilated using a 5 mm balloon. 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 Impression: Acute on chronic diastolic CHF Chest pain- trops flat and not indicative of ACS Acute respiratory distress with hypoxia Permanent atrial fibrillation Hypertension PVD status post AF on 03/10 OPC Hyperlipidemia DANNY on CKD Plan: Continue IV diuresis 40 mg b.i.d. as patient remains decompensated Check echo Monitor creatinine closely Need to optimize medical therapy. Add Coreg low-dose and Farxiga. Unable to add Lenny or Arb at this time due to DANNY May need nephrology consult Resume other home medications Consider stress test when patient better compensated The patient is asked to make an attempt to improve diet and exercise patterns to aid in medical management of this problem. Check lipid traffic warehouse supervisor blood pressure/heart rate electrolytes and supplement/adjust medications as needed CC: Pepper Pelaez MD [facility] Center[facility] roy MD Cosigned by Rahat Harris MD at 06/15/2023 11:24 AM RIFFLER TENDER LER TENDER LER TENDER Associated attestation - Rahat Harris MD - 06/15/2023 11:24 AM RIFFLER TENDER I personally performed a substantive portion of this patient encounter in conjunction with Carlos Lakhani. The patient presents with shortness of breath. She also has a history of atrial fibrillation, hypertension and peripheral artery disease.. On physical examination, I personally found well-developed female sitting in the bedside chair in no apparent distress. HEENT is unremarkable neck supple lungsclear cardiac, irregularly irregular rhythm with a normal S1-S2 without murmur extremities have 1+ left ankle edema. . My impression/plan is 1. Congestive heart failure, HFpEF. Continue IV Lasix to normalize the patient's volume status. Start carvedilol and Farxiga. Monitor her renal function. Check echocardiogram. 2. Chronic atrial fibrillation.. Continue rate control plus Xarelto. 3. Peripheral artery disease. documented in this encounter ED Notes * Jadon Bruno III, MD - 06/14/2023 10:22 PM CST HPI Chief Complaint Patient presents with Shortness of Breath Chest Pain Tess Benedict is a 87-year-old female the past medical history of CHF, asthma who presents withshortness of breath. Patient with worsening exertional shortness of breath over the past couple weeks. This has been progressively worse over the past few days and can only take a couple steps without becoming severely short of breath. Also states that her blood pressure has been running low. Was seen at her field map technician's point yesterday who made medication adjustments. Called again today and reportedly will pressure as well as dyspnea on exertion was told to come to the emergency department for evaluation. Patient also endorses intermittent chest pain described as right-sided and radiating u pwards towards her neck. Patient History: Patient Active Problem List Diagnosis Date Noted Acute on chronic heart failure, unspecified heart failure type (HCC) 06/14/2023 [place] of macula of both eyes 05/30/2023 Mild persistent asthma 03/13/2023 Morbid (severe) obesity due to excess calories ([facility]) 02/07/2023 Hospital discharge follow-up 01/11/2023 Gait disturbance 11/11/2022 Chronic heart failure with preserved ejection fraction (CMS/HCC) (HCC) 07/25/2022 Postural kyphosis of cervicothoracic region 01/24/2022 retirement current use of anticoagulant 11/16/2021 Peripheral arterial disease (HCC) 11/09/2021 SOBOE (shortness of breath on exertion) 04/21/2021 Atrial fibrillation (CMS/HCC) (HCC) 04/21/2021 Bariatric surgery status 04/04/2017 Knee joint replacement status, bilateral 04/04/2017 Spinal stenosis of lumbar region with neurogenic claudication 12/17/2016 Macular hole 05/04/2016 History of malignant melanoma 02/10/2015 Essential tremor 11/02/2013 Chronic GERD 11/02/2013 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 11/02/2013 Restless legs syndrome 11/02/2013 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 CHF (congestive heart failure) ([facility]/HCC) (HCC) Cough DVT (deep venous thrombosis) ([facility]) (HCC) 1976 upper left arm near elbow--- [...] ARTHROPLASTY Left 11/01/2021 Dr. Mckenzie, [facility]. Family History Problem Relation Age of Onset Cancer Other Family history of Cancer, unknown; Arthritis Other Family history of Arthritis; Abdominal Aortic Aneurysm Father COPD Father Social History Tobacco Use Smoking status: Former Packs/day: 2.00 Years: 30.00 Additional pack years: 0.00 Total pack years: 60.00 Types: Cigarettes Quit date: 1981 Years since quittin.0 Smokeless tobacco: Never Vaping Use Vaping Use: Never used Substance and Sexual Activity Alcohol use: Not Currently Drug use: Never Sexual activity: Defer Social History Social History Narrative Not on file Review of Systems Review of Systems Physical Exam ED Triage Vitals [06/14/23 1622] Temp Pulse Resp BP SpO2 36.3 ??C (97.4 ??F) 88 18 149/78 96 % Temp src Heart Rate Source Patient Position BP Location FiO2 (%) Oral -- -- -- -- Height Height Method Weight Weight Method 1.524 m (5') Stated 86.2 kg (190 lb) -- Physical Exam Vitals and nursing note reviewed. Constitutional: General: She is not in acute distress. Appearance: She is well-developed. HENT: Head: Normocephalic and atraumatic. Eyes: Conjunctiva/sclera: Conjunctivae normal. Cardiovascular: Rate and Rhythm: Normal rate and regular rhythm. Heart sounds: No murmur heard. Pulmonary: Effort: Pulmonary effort is normal. No respiratory distress. Breath sounds: Normal breath sounds. Abdominal: Palpations: Abdomen is soft. Tenderness: There is no abdominal tenderness. Musculoskeletal: General: No swelling. Cervical back: Neck supple. Right lower leg: Edema present. Left lower leg: Edema present. Skin: General: Skin is warm and dry. Capillary Refill: Capillary refill takes less than 2 seconds. Neurological: Mental Status: She is alert. Psychiatric: Mood and Affect: Mood normal. MDM Medical Decision Making Amount and/or Complexity of Data Reviewed Radiology: ordered. ECG/medicine tests: ordered. Risk Prescription drug management. Decision regarding hospitalization. Tess Benedict is a 87-year-old female the past medical history of CHF, moderate persistent asthma and hypertension who presents with 2 weeks of progressively worsening dyspnea on exertion associated with weight gain and lower extremity swelling. Differential diagnosis includes worsening heart fa ilure, asthma, anemia, acute coronary syndrome is also possibility given the description the patient chest pain although no active chest pain at this time making an occlusive myocardial infarction unlikely. Upon arrival patient was hemodynamically stable no distress. Lungs clear to auscultation bilaterally although patient becomes very short of breath just upon conversation. Given her increased weight gain, elevated brain natriuretic peptide and symptoms consistent with heart failure will admitfor IV diuresis. May require repeat echo given last done was back in 2021 ???Portions of the record may have been created with voice recognition software. Occasional wrong-word or ???[id number]??? substitutions may have occurred due to the inherent limitations of voice recognition software. Read the chart carefully and recognize, using context, where substitutions haveoccurred.?? Final diagnoses: Acute on chronic heart failure, unspecified heart failure type (HCC) Dyspnea on exertion Chest pain, unspecified type Jadon Bruno III, MD Resident 06/15/23 0111 LER TENDER * Jazmyne Estevez RN - 06/14/2023 4:18 PM CST Pt c/o shortness of breath x 1 month and reports her blood pressure was 107/35 when taken at home. Pt also admits to intermittent chest pain x 2-3 weeks. LER TENDER documented in this encounter Miscellaneous Notes * Plan of Care - Corazon Rodrigues RN - 06/17/2023 9:24 AM CST Goals: Clinical goals for the shift: Stable vitals, discharge to home. Summary: Patient with discharge orders. Patient ambulating with walker. LER TENDER * Plan of Care - Ivone Kelly RN - 06/16/2023 10:53 PM CST Goals: Clinical Goals for the Shift: stable vs, pain management, comfort and safety Problem: Lack of Knowledge: Goal: Ability to state ways to decrease the risk of falls will improve Outcome: Progressing Problem: Safety: Goal: Will remain free from falls Outcome: Progressing Goal: Will remain free from injury from falls Outcome: Progressing Goal: Will remain free from falls and injury in home environment Outcome: Progressing Problem: Lack of Knowledge: Goal: Ability to state ways to decrease the risk of falls will improve Outcome: Progressing Problem: Safety: Goal: Will remain free from falls Outcome: Progressing Goal: Will remain free from injury from falls Outcome: Progressing Goal: Will remain free from falls and injury in home environment Outcome: Progressing Problem: Activity: Goal: Ability to tolerate increased activity will improve Outcome: Progressing Goal: Ability to participate in self-care as condition permits will improve Outcome: Progressing Problem: Cardiac: Goal: Ability to maintain an adequate cardiac output will improve Outcome: Progressing Goal: Will show no evidence of cardiac arrhythmias Outcome: Progressing Goal: Complications related to the disease process, condition or treatment will be avoided or minimized Outcome: Progressing Problem: Lack of Knowledge: Goal: Knowledge of disease or condition will improve Outcome: Progressing Goal: Knowledge of the prescribed therapeutic regimen will improve Outcome: Progressing Goal: Ability to identify and utilize available resources and services will improve Outcome: Progressing Problem: Coping: Goal: Level of anxiety will decrease Outcome: Progressing Problem: Safety: Goal: Ability to remain free from injury will improve Outcome: Progressing Goal: Will show no signs and symptoms of excessive bleeding Outcome: Progressing Problem: Health Behavior: Goal: Understanding of discharge needs will improve Outcome: Progressing Problem: Lack of Knowledge: Goal: Knowledge of diagnostic tests will improve Outcome: Progressing Goal: Knowledge of the prescribed therapeutic regimen will improve Outcome: Progressing Problem: Fluid Volume: Goal: Maintenance of adequate hydration will improve Outcome: Progressing Problem: Respiratory: Goal: Ability to achieve and maintain a regular respiratory rate will improve Outcome: Progressing Goal: Ability to maintain a clear airway will improve Outcome: Progressing Goal: Ability to maintain normal pulse oximetry readings will improve Outcome: Progressing Goal: Ability to maintain arterial blood gas levels within normal range will improve Outcome: Progressing Goal: Verbalizations of increased ease of respirations will increase Outcome: Progressing Problem: Skin Integrity: Goal: Skin integrity will be supported Outcome: Progressing LER TENDER * Plan of Care - Marika Esposito RN - 06/16/2023 2:56 PM CST CM attempted x2 this shift to meet with pt to complete assessment for initial discharge planning. Pt unavailable with nursing & medical staff. PATRIA Grant-RN [facility] [phone] LER TENDER * Plan of Care - Ivone Kelly RN - 06/15/2023 9:23 PM CST Goals: Clinical Goals for the Shift: stable vs, pain management, comfort and safety Problem: Lack of Knowledge: Goal: Ability to state ways to decrease the risk of falls will improve Outcome: Progressing Problem: Safety: Goal: Will remain free from falls Outcome: Progressing Goal: Will remain free from injury from falls Outcome: Progressing Goal: Will remain free from falls and injury in home environment Outcome: Progressing Problem: Lack of Knowledge: Goal: Ability to state ways to decrease the risk of falls will improve Outcome: Progressing Problem: Safety: Goal: Will remain free from falls Outcome: Progressing Goal: Will remain free from injury from falls Outcome: Progressing Goal: Will remain free from falls and injury in home environment Outcome: Progressing Problem: Activity: Goal: Ability to tolerate increased activity will improve Outcome: Progressing Goal: Ability to participate in self-care as condition permits will improve Outcome: Progressing Problem: Cardiac: Goal: Ability to maintain an adequate cardiac output will improve Outcome: Progressing Goal: Will show no evidence of cardiac arrhythmias Outcome: Progressing Goal: Complications related to the disease process, condition or treatment will be avoided or minimized Outcome: Progressing Problem: Lack of Knowledge: Goal: Knowledge of disease or condition will improve Outcome: Progressing Goal: Knowledge of the prescribed therapeutic regimen will improve Outcome: Progressing Goal: Ability to identify and utilize available resources and services will improve Outcome: Progressing Problem: Coping: Goal: Level of anxiety will decrease Outcome: Progressing Problem: Safety: Goal: Ability to remain free from injury will improve Outcome: Progressing Goal: Will show no signs and symptoms of excessive bleeding Outcome: Progressing Problem: Health Behavior: Goal: Understanding of discharge needs will improve Outcome: Progressing Problem: Lack of Knowledge: Goal: Knowledge of diagnostic tests will improve Outcome: Progressing Goal: Knowledge of the prescribed therapeutic regimen will improve Outcome: Progressing Problem: Fluid Volume: Goal: Maintenance of adequate hydration will improve Outcome: Progressing Problem: Respiratory: Goal: Ability to achieve and maintain a regular respiratory rate will improve Outcome: Progressing Goal: Ability to maintain a clear airway will improve Outcome: Progressing Goal: Ability to maintain normal pulse oximetry readings will improve Outcome: Progressing Goal: Ability to maintain arterial blood gas levels within normal range will improve Outcome: Progressing Goal: Verbalizations of increased ease of respirations will increase Outcome: Progressing Problem: Skin Integrity: Goal: Skin integrity will be supported Outcome: Progressing Summary: Stable vs, pain free. LER TENDER * Plan of Care - Tonny Villaseñor RN - 06/15/2023 3:15 PM RIFFLER TENDER Goals: Clinical Goals for the Shift: VSS, comfort aand safety Summary: Patient up for meals and to BR with standby assist, c/o muscle cramps relieved with medication/ walking, care plan to be continued as ordered. LER TENDER * Plan of Care - Robby Del Real RN - 06/15/2023 6:19 AM CST Problem: Lack of Knowledge: Goal: Ability to state ways to decrease the risk of falls will improve Outcome: Progressing Problem: Safety: Goal: Will remain free from falls Outcome: Progressing Problem: Safety: Goal: Will remain free from injury from falls Outcome: Progressing Problem: Safety: Goal: Will remain free from falls and injury in home environment Outcome: Progressing Problem: Lack of Knowledge: Goal: Ability to state ways to decrease the risk of falls will improve Outcome: Progressing Problem: Activity: Goal: Ability to participate in self-care as condition permits will improve Outcome: Progressing Problem: Activity: Goal: Ability to tolerate increased activity will improve Outcome: Progressing Problem: Cardiac: Goal: Ability to maintain an adequate cardiac output will improve Outcome: Progressing Problem: Cardiac: Goal: Will show no evidence of cardiac arrhythmias Outcome: Progressing Problem: Cardiac: Goal: Complications related to the disease process, condition or treatment will be avoided or minimized Outcome: Progressing Problem: Lack of Knowledge: Goal: Ability to identify and utilize available resources and services will improve Outcome: Progressing Goals: Clinical Goals for the Shift: Pt to remain free from falls stable vital signs Summary: LER TENDER documented in this encounter Plan of Treatment [...] Priority Date/Time Associated Diagnosis Comments EGFR Routine 06/17/2023 4:26 AM RIFFLER TENDER CBC WITHOUT DIFFERENTIAL Routine 06/17/2023 4:26 AM RIFFLER TENDER BASIC METABOLIC PANEL Routine 06/17/2023 4:26 AM RIFFLER TENDER EGFR Routine 06/16/2023 5:02 AM RIFFLER TENDER CBC WITHOUT DIFFERENTIAL Routine 06/16/2023 5:02 AM RIFFLER TENDER BASIC METABOLIC PANEL Routine 06/16/2023 5:02 AM RIFFLER TENDER TRANSTHORACIC ECHO (TTE) COMPLETE W DOPPLER/CF WO CONTRAST Routine 06/15/2023 12:56 PM RIFFLER TENDER MAGNESIUM Routine 06/15/2023 8:42 AM RIFFLER TENDER LIPID PANEL Routine 06/15/2023 8:42 AM RIFFLER TENDER EGFR Routine 06/15/2023 5:09 AM RIFFLER TENDER CBC WITHOUT DIFFERENTIAL Routine 06/15/2023 5:09 AM RIFFLER TENDER BASIC METABOLIC PANEL Routine 06/15/2023 5:09 AM RIFFLER TENDER TROPONIN T HIGH-SENSITIVITY 6-HOUR Timed 06/15/2023 12:37 AM RIFFLER TENDER TROPONIN T HIGH-SENSITIVITY 4-HR Timed 06/14/2023 10:42 PM RIFFLER TENDER TROPONIN T HIGH-SENSITIVITY SERIES (BASELINE, 2HR, 4HR, 6HR) STAT 06/14/2023 6:52 PM RIFFLER TENDER EGFR STAT 06/14/2023 6:52 PM RIFFLER TENDER DIFFERENTIAL AUTO STAT 06/14/2023 6:5 2 PM RIFFLER TENDER PRO B-TYPE NATRIURETIC PEPTIDE STAT 06/14/2023 6:52 PM RIFFLER TENDER IRON PROFILE W/ IBC Add-On 06/14/2023 6 :52 PM RIFFLER TENDER CBC WITH AUTO DIFFERENTIAL STAT 06/14/2023 6:52 PM RIFFLER TENDER FERRITIN Add-On 06/14/2023 6:52 PM RIFFLER TENDER COMPREHENSIVE METABOLIC PANEL STAT 06/14/2023 6:52 PM RIFFLER TENDER XR CHEST PA LATERAL 2 VIEWS ED 06/14/2023 4:35 PM RIFFLER TENDER RESPIRATORY PATHOGEN PANEL Routine 06/14/2023 4:23 PM RIFFLER TENDER ECG 12-LEAD STAT 06/14/2023 4:20 PM RIFFLER TENDER documented in this encounter Results * eGFR (06/17/2023 4:26 AM RIFFLER TENDER) [facility] eGFR 32 mL/min/1. 73 m2 [facility] Comment: Interpretive [...] interpretive data was last reviewed 2021. Blood 06/17/2023 4:26 AM RIFFLER TENDER 06/17/2023 5:11 AM RIFFLER TENDER us Jahaira Dc MD LAB BLOOD ORDERABLES Final Re sult [facility] [address] Department [place] [address] * (ABNORMAL) Basic metabolic panel (06/17/2023 4:26 AM RIFFLER TENDER) Sodium 136 135 - 145 mmol/L [facility] Potassium, pl 3.7 3.3 - 4.9 mmol/L [facility] Chloride 92(L) 97 - 110 mmol/L [facility] CO2 31 22 - 32 mmol/L [facility] Anion gap 13 2 - 15 mmol/L [facility] BUN 48(H) 6 - 25 mg/dL [facility] Creatinine 1.57(H) 0.60 - 1.10 mg/dL [facility] Glucose 91 70 - 199 mg/dL [facility] Comment: Interpretive Data Fasting glucose >/= 126 [...] interpretive data was last revised 2022. Calcium 9.4 8.5 - 10.3 mg/dL [facility] Blood 06/17/2023 4:26 AM RIFFLER TENDER 06/17/2023 5:11 AM RIFFLER TENDER Jahaira Dc MD LAB BLOOD ORDERABLES Final Re sult Performing Organization Address [facility]/ZIP Co de Phone Number [facility] [id number] Department of [employer] [place], [place] [id number] * (ABNORMAL) CBC without differential (06/17/2023 4:26 AM RIFFLER TENDER) WBC 9.4 3.8 - 9.9 K/cumm [facility] Hgb 9.6(L) 11.9 - 15.5 g/dL [facility] Hct 32.0(L) 35.6 - 45.5 % [facility] Plt 392 150 - 400 K/cumm [facility] MPV 9.0(L) 9.1 - 12.3 fL [facility] RBC 4.21 3.90 - 5.20 M/cumm [facility] MCV 76.0(L) 81.3 - 96.4 fL [facility] MCH 22.8(L) 27.1 - 33.3 pg [facility] MCHC 30.0(L) 32.3 - 35.7 g/dL [facility] RDW CV 15.9(H) 11.1 - 14.9 % [facility] RDW SD 43.7 35.7 - 48.1 fL [facility] NRBC abs 0.00 0.00 - 0.01 K/cumm [facility] Blood 06/17/2023 4:26 AM RIFFLER TENDER 06/17/2023 5:12 AM RIFFLER TENDER Jahaira Dc MD LAB BLOOD ORDERABLES Final Re sult Performing Organization Address City/[facility]/ZIP Co de Phone Number [facility]GHAN [address] Department [employer] [address] * eGFR (06/16/2023 5:02 AM RIFFLER TENDER) eGFR 31 mL/min/1. 73 m2 [facility] Comment: Interpretive Data Reference Interval Normal ?>/= [...] interpretive data was last reviewed 2021. Blood 06/16/2023 5:02 AM RIFFLER TENDER 06/16/2023 5:06 AM RIFFLER TENDER us Jahaira Dc MD LAB BLOOD ORDERABLES Final Re sult [facility] [address] Department [place] [address] * (ABNORMAL) Basic metabolic panel (06/16/2023 5:02 AM RIFFLER TENDER) Sodium 133(L) 135 - 145 mmol/L [facility] Potassium, pl 4.1 3.3 - 4.9 mmol/L [facility] Chloride 93(L) 97 - 110 mmol/L [facility] CO2 28 22 - 32 mmol/L [facility] Anion gap 12 2 - 15 mmol/L [facility] BUN 44(H) 6 - 25 mg/dL [facility] Creatinine 1.62(H) 0.60 - 1.10 mg/dL [facility] Glucose 101 70 - 199 mg/dL [facility] Comment: Interpretive Data Fasting glucose >/= 126 [...] 2022. Calcium 9.3 8.5 - 10.3 mg/dL [facility] Blood 06/16/2023 5:02 AM RIFFLER TENDER 06/16/2023 5:06 AM RIFFLER TENDER us Jahaira Dc MD LAB BLOOD ORDERABLES Final Re sult [facility] [address] Department [place] [address] * (ABNORMAL) CBC without differential (06/16/2023 5:02 AM RIFFLER TENDER) Pathologist [facility] WBC 8.0 3.8 - 9.9 K/cumm [facility] Hgb 9.4(L) 11.9 - 15.5 g/dL [facility] Hct 31.8(L) 35.6 - 45.5 % [facility] Plt 374 150 - 400 K/cumm [facility] MPV 8.7(L) 9.1 - 12.3 fL [facility] RBC 4.20 3.90 - 5.20 M/cumm [facility] MCV 75.7(L) 81.3 - 96.4 fL [facility] MCH 22.4(L) 27.1 - 33.3 pg [facility] MCHC 29.6(L) 32.3 - 35.7 g/dL [facility] RDW CV 16.0(H) 11.1 - 14.9 % [facility] RDW SD 43.6 35.7 - 48.1 fL [facility] NRBC abs 0.00 0.00 - 0.01 K/cumm [facility] Blood 06/16/2023 5:02 AM RIFFLER TENDER 06/16/2023 5:06 AM RIFFLER TENDER us Jahaira Dc MD LAB BLOOD ORDERABLES Final Re sult [facility] [address] Department [place] [address] * TRANSTHORACIC ECHO (TTE) COMPLETE W DOPPLER/CF WO CONTRAST (06/15/2023 12:56 PM RIFFLER TENDER) Anatomical Region Laterality Modality Ultrasound 06/15/2023 12:1 3 PM RIFFLER TENDER Narrative 06/15/2023 4:10 [place] [address] Echocardiogram Report Patient Name: TESS BENEDICT I : 1935 Study Date: 06/15/2023 12:13:47 PM Gender: F Tech: Location: [address] Provider: JAHAIRA DC ?Height(Cm): 152 BSA: 1.93 Weight(Kg): 88 Heart Rate: 82 BP: 117/62 Quality: Good Order Provider: JAHAIRA DC PROCEDURES: Echocardiographic Report: Transthoracic echocardiogram with complete 2D, M-Mode, and color Doppler examination. INDICATIONS: Congestive Heart Failure. Measurements: 2D/M Mode ? Doppler Measurement ?Value ?Normal Range ? Measurement ?Value ?Normal Range EF Teich 2D ?66.2 ? [ 54.0 - 74.0 ] percent ?EDUARDO Vmax ? 2.51 ? cm2 EF Mod 4C ?60.5 ? percent ?AV Mean PG ? 5 ?mmHg LVIDd 2D ? 3.21 ? [ 3.80 - 5.20 ] cm ? AV Peak Matt ?1.61 ? [ 1.00 - 1.70 ] m/s LVIDs 2D ? 2.08 ? [ 2.20 - 3.50 ] cm ? AV VTI ? 31.54 ?cm LVPWd 2D ? 1.13 ? [ 0.60 - 0.90 ] cm ? LVOT Diam ?1.97 ? cm IVSd 2D ?1.22 ? [ 0.60 - 0.90 ] cm ? LVOT Peak Matt ?1.33 ? [ 0.70 - 1.10 ] m/s LA Dimension MM ?3.48 ? [ 2.70 - 3.80 ] cm ? LVOT VTI ? 27.34 ?cm AoR Diam MM ?2.97 ? [ 2.70 - 3.70 ] cm ? MV E Peak Matt ?1.40 ? [ 0.60 - 1.30 ] m/s LA Volume Index ?33.48 ?[ 16.00 - 34.00 ] cc/m2 ?MV A Peak Matt ?0.37 ? [ 1.00 - 1.20 ] m/s MV Mean PG ? 3 ?mmHg MV Decel Time ?184 ?[ 104 - 258 ] msec PV Peak Matt ?0.94 ? [ 0.40 - 0.80 ] m/s TR Peak Matt ?2.31 ? [ 1.00 - 2.80 ] m/s TR Peak PG ? 21 ? mmHg E` ? 0.11 ? m/s E/E` ? 12.00 Measurement ?Value ?Normal Range ? Measurement ?Value ?Normal Range 2D/M Mode ? Doppler - FINDINGS: Atrial Septum: Normal atrial septum. Left Ventricle: Normal left ventricular size. Mild concentric left ventricular hypertrophy. Diastolic dysfunction is present. Ejection fraction is measured at 62 %. Left Atrium: There is mild enlargement of left atrium. Right Ventricle: Normal right ventricular size. Normal right ventricular systolic function. Right Atrium: The right atrium is normal in size. Aortic Valve: Aortic cusps appear moderately calcified. Aortic cusps appear mildly restricted. Mild aortic stenosis. Aortic valve area by planimetry 1.7 cm2. No aortic regurgitation. Mitral Valve: Mitral valve leaflets appear mildly thickened. Mild mitral annular calcification. Trivial regurgitation of the mitral valve. Pulmonic Valve: Normal structure of the pulmonic valve. Trivial regurgitation in the pulmonic valve. Tricuspid Valve: Tricuspid valve not well visualized. Estimated peak RVSP is 21 mmHg. Trivial regurgitation in the tricuspid valve. Pericardium: Normal pericardium with no significant pericardial effusion. Aorta: Mild aortic root calcification. IVC: The IVC is not well visualized. CONCLUSIONS: Technically difficult study with limited views. [...] regurgitation. Electronically Signed By: Latanya Fitzgerald DO, FACC, FASE, FASNC 2023-06-15 16:09:39 RIFFLER TENDER CC: CC: CC: Procedure Note Latanya Fitzgerald DO - 06/15/2023 [place] [address] Echocardiogram Report Patient Name: TESS BENEDICT I : 1935 Study Date: 06/15/2023 12:13:47 PM Gender: F Tech: Location: [id number] Ref Provider: JAHAIRA DC Height(Cm): 152 BSA: 1.93 Weight(Kg): 88 Heart Rate: 82 BP: 117/62 Quality: Good Order Provider: JAHAIRA DC PROCEDURES: Echocardiographic Report: Transthoracic echocardiogram with complete 2D, M-Mode, and color Dopplerexamination. INDICATIONS: Congestive Heart Failure. Measurements: 2D/M ModeDoppler Measurement Value Normal Range MeasurementValue Normal Range EF Teich 2D 66.2 [ 54.0 - 74.0 ] percent EDUARDO Vmax2.51 cm2 EF Mod 4C 60.5 percent AV Mean PG5 mmHg LVIDd 2D 3.21 [ 3.80 - 5.20 ] cm AV Peak Vel1.61 [ 1.00 - 1.70 ] m/s LVIDs 2D 2.08 [ 2.20 - 3.50 ] cm AV VTI31.54 cm LVPWd 2D 1.13 [ 0.60 - 0.90 ] cm LVOT Diam1.97 cm IVSd 2D 1.22 [ 0.60 - 0.90 ] cm LVOT PeakVel 1.33 [ 0.70 - 1.10 ] m/s LA Dimension MM 3.48 [ 2.70 - 3.80 ] cm LVOT VTI27.34 cm AoR Diam MM 2.97 [ 2.70 - 3.70 ] cm MV E PeakVel 1.40 [ 0.60 - 1.30 ] m/s LA Volume Index 33.48 [ 16.00 - 34.00 ] cc/m2 MV A PeakVel 0.37 [ 1.00 - 1.20 ] m/s MV Mean PG 3 mmHg MV Decel Time 184 [ 104 - 258 ] msec PV Peak Matt 0.94 [ 0.40 - 0.80 ] m/s TR Peak Matt 2.31 [ 1.00 - 2.80 ] m/s TR Peak PG 21 mmHg E` 0.11 m/s E/E` 12.00 Measurement Value Normal Range MeasurementValue Normal Range 2D/M ModeDoppler - FINDINGS: Atrial Septum: Normal atrial septum. Left Ventricle: Normal left ventricular size. Mild concentric left ventricularhypertrophy. Diastolic dysfunction is present. Ejection fraction is measured at 62 %. Left Atrium: There is mild enlargement of left atrium. Right Ventricle: Normal right ventricular size. Normal right ventricular systolicfunction. Right Atrium: The right atrium is normal in size. Aortic Valve: Aortic cusps appear moderately calcified. Aortic cusps appear mildlyrestricted. Mild aortic stenosis. Aortic valve area by planimetry 1.7 cm2. No aorticregurgitation. Mitral Valve: Mitral valve leaflets appear mildly thickened. Mild mitral annularcalcification. Trivial regurgitation of the mitral valve. Pulmonic Valve: Normal structure of the pulmonic valve. Trivial regurgitation in thepulmonic valve. Tricuspid Valve: Tricuspid valve not well visualized. Estimated peak RVSP is 21 mmHg.Trivial regurgitation in the tricuspid valve. Pericardium: Normal pericardium with no significant pericardial effusion. Aorta: Mild aortic root calcification. IVC: The IVC is not well visualized. CONCLUSIONS: Technically difficult study with limited views. Normal left ventricular size. Mild concentric left ventricularhypertrophy. Diastolic dysfunction is present. Ejection fraction is measured at 62 %. Normal right ventricular size. Normal right ventricular systolicfunction. Mitral valve leaflets appear mildly thickened. Mild mitral annularcalcification. Trivial regurgitation of the mitral valve. Aortic cusps appear moderately calcified. Aortic cusps appear mildlyrestricted. Mild aortic stenosis. Aortic valve area by planimetry 1.7 cm2. No aorticregurgitation. Electronically Signed By: Latanya Fitzgerald DO, FACC, FASE, FASNC 2023-06-15 16:09:39 RIFFLER TENDER CC: CC: CC: us Jahaira Dc MD CV ECHO PROCEDURES Final Resu lt * Lipid panel (06/15/2023 8:42 AM RIFFLER TENDER) Cholesterol 129 30 - 199 mg/dL [facility]GHAN Comment: [...] Data was last revised on 2018. Triglycerides 71 <=149 mg/dL [facility]AUGHAN Comment: Interpretive Data Ages [...] Data was last revised on 2018. HDL 40 >=40 mg/dL [facility]AUGHAN Comment: Interpretive Data Ages [...] was last revised on 2018. LDL, calculated 75 <=129 mg/dL [facility]AUGHAN Comment: Interpretive Data Ages [...] was last revised on 2018. Non-HDL Cholesterol 89 mg/dL [facility]GHAN Comment: Interpretive Data Ages [...] last revised on 2018. Chol/HDL ratio 3 [facility] Blood 06/15/2023 8:42 AM RIFFLER TENDER 06/15/2023 8:47 AM RIFFLER TENDER us Carlos Lakhani NP LAB BLOOD ORDERABLES Final R esult [facility] [address] Department [place] [address] * Magnesium (06/15/2023 8:42 AM RIFFLER TENDER) Magnesium 2.2 1.4 - 2.5 mg/dL [facility] Blood 06/15/2023 8:42 AM RIFFLER TENDER 06/15/2023 8:47 AM RIFFLER TENDER us Carlos Lakhani VENDING MACHINE MECH[employer]IC LAB BLOOD ORDERABLES Final R esult [facility] [address] Department [place] [address] * eGFR (06/15/2023 5:09 AM RIFFLER TENDER) eGFR 30 mL/min/1. 73 m2 [facility]I Comment: Interpretive Data Reference Interval Normal ?>/= [...] interpretive data was last reviewed 2021. Blood 06/15/2023 5:09 AM RIFFLER TENDER 06/15/2023 5:46 AM RIFFLER TENDER Jahaira Dc MD LAB BLOOD ORDERABLES Final Re sult [facility] [address] [place] [address] * (ABNORMAL) Basic metabolic panel (06/15/2023 5:09 AM RIFFLER TENDER) Sodium 134(L) 135 - 145 mmol/L [facility] Potassium, pl 4.1 3.3 - 4.9 mmol/L [facility] Chloride 95(L) 97 - 110 mmol/L [facility] CO2 29 22 - 32 mmol/L [facility] Anion gap 10 2 - 15 mmol/L [facility] BUN 38(H) 6 - 25 mg/dL [facility] Creatinine 1.68(H) 0.60 - 1.10 mg/dL [facility] Glucose 94 70 - 199 mg/dL [facility] Comment: Interpretive Data Fasting glucose >/= 126 [...] 2022. Calcium 9.2 8.5 - 10.3 mg/dL [facility] Blood 06/15/2023 5:0 9 AM RIFFLER TENDER 06/15/2023 5:46 AM RIFFLER TENDER Jahaira Dc MD LAB BLOOD ORDERABLES Final Re sult [facility] [address] [email or web address] [address] * (ABNORMAL) CBC without differential (06/15/2023 5:09 AM RIFFLER TENDER) WBC 9.0 3.8 - 9.9 K/cumm [facility] Hgb 9.1(L) 11.9 - 15.5 g/dL [facility] Hct 31.1(L) 35.6 - 45.5 % [facility] Plt 400 150 - 400 K/cumm [facility] MPV 9.1 9.1 - 12.3 fL [facility] RBC 4.03 3.90 - 5.20 M/cumm [facility] MCV 77.2(L) 81.3 - 96.4 fL [facility] MCH 22.6(L) 27.1 - 33.3 pg [facility] MCHC 29.3(L) 32.3 - 35.7 g/dL [facility] RDW CV 16.0(H) 11.1 - 14.9 % [facility] RDW SD 45.1 35.7 - 48.1 fL [facility] NRBC abs 0.00 0.00 - 0.01 K/cumm [facility] Blood 06/15/2023 5:09 AM RIFFLER TENDER 06/15/2023 5:46 AM RIFFLER TENDER us Jahaira Dc MD LAB BLOOD ORDERABLES Final Re sult Performing Organization Address City/[facility]/ZIP Co de Phone Number [facility] [address] Department [place] [address] * (ABNORMAL) Troponin T high-sensitivity 6-hour (06/15/2023 12:37 AM RIFFLER TENDER) Trop T hs 21(H) <=14 ng/L [facility] Comment: Interpretive Data For further hscTnT resources including the diagnostic algorithm and an aid in interpretation, copy and paste this link: https://nrl.testcatalog.org/show/hsTrop Current Interpretive Data last revised 2020. Trop T hs delta -1 ng/L [facility] Trop T hs interp Insignificant [facility] Blood 06/15/2023 12:3 7 AM RIFFLER TENDER 06/15/2023 12:41 AM RIFFLER TENDER us Luis E Lopez DO LAB BLOOD ORDERABLES Final Res ult [facility] [address] Department [place] [place] [address] * (ABNORMAL) Troponin T high-sensitivity 4-hour (06/14/2023 10:42 PM RIFFLER TENDER) Trop T hs 21(H) <=14 ng/L [facility] Comment: Interpretive Data For further hscTnT resources including the diagnostic algorithm and an aid in interpretation, copy and paste this link: https://nrl.testcatalog.org/show/hsTrop Current Interpretive Data last revised 2020. Trop T hs delta -1 ng/L [facility] Trop T hs interp Insignificant [facility] Blood 06/14/2023 10:4 2 PM RIFFLER TENDER 06/14/2023 10:56 PM RIFFLER TENDER us Luis E Lopez DO LAB BLOOD ORDERABLES Final Res ult Performing Organization Address [facility] Co de Phone Number [facility] [address] Department [place] [employer] [place] [address] * Ferritin (06/14/2023 6:52 PM RIFFLER TENDER) Ferritin 19 15 - 150 ng/mL [facility] Blood 06/14/2023 6:52 PM RIFFLER TENDER 06/14/2023 10:42 PM RIFFLER TENDER Jahaira Dc MD LAB BLOOD ORDERABLES Final Re sult Performing Organization Address [facility] Co de Phone Number [facility] [address] Department [place] [employer] [place] [address] * (ABNORMAL) Iron profile w/ IBC (06/14/2023 6:52 PM RIFFLER TENDER) Iron 18(L) 35 - 145 mcg/dl [facility] TIBC 438(H) 250 - 400 mcg/dL [facility] Transferrin saturation 4(L) 20 - 50 % [facility] Blood 06/14/2023 6:52 PM RIFFLER TENDER 06/14/2023 10:42 PM RIFFLER TENDER us Jahaira Dc MD LAB BLOOD ORDERABLES Final Re sult [facility] [address] Department [email or web address] [address] * eGFR (06/14/2023 6:52 PM RIFFLER TENDER) eGFR 27 mL/min/1. 73 m2 [facility] Comment: Interpretive Data Reference Interval Normal ?>/= [...] interpretive data was last reviewed 2021. Blood 06/14/2023 6:52 PM RIFFLER TENDER 06/14/2023 6:54 PM RIFFLER TENDER us Jadon Bruno III, MD LAB BLOOD ORDER CLAIRE Final Result [facility] [address] Department [email or web address] [place], [place] [id number] * (ABNORMAL) Differential, auto (06/14/2023 6:52 PM RIFFLER TENDER) Neutrophil abs 7.2(H) 1.5 - 6.5 K/cumm [facility] Imm gran abs 0.1 0.0 - 0.1 K/cumm [facility] Lymphocyte abs 1.0 0.8 - 3.3 K/cumm [facility] Monocyte abs 0.8 0.2 - 0.8 K/cumm [facility] Eosinophil abs 0.3 0.0 - 0.5 K/cumm [facility] Basophil abs 0.1 0.0 - 0.1 K/cumm [facility] Neutrophil pct 76.3 % [facility] Comment: Interpretive Data Percent cell count reference ranges are not reported, since discordance with absolute values may lead to misinterpretation of CBC data. Current Interpretive Data was last revised on 2017. Imm gran pct 0.8 % [facility] Comment: Interpretive Data Percent cell count reference ranges are not reported, since discordance with absolute values may lead to misinterpretation of CBC data. Current Interpretive Data was last revised on 2017. Lymphocyte pct 10.6 % [facility] Comment: Interpretive Data Percent cell count reference ranges are not reported, since discordance with absolute values may lead to misinterpretation of CBC data. Current Interpretive Data was last revised on 2017. Monocyte pct 8.3 % [facility] Comment: Interpretive Data Percent cell count reference ranges are not reported, since discordance with absolute values may lead to misinterpretation of CBC data. Current Interpretive Data was last revised on 2017. Eosinophil pct 3.3 % [facility] Comment: Interpretive Data Percent cell count reference ranges are not reported, since discordance with absolute values may lead to misinterpretation of CBC data. Current Interpretive Data was last revised on 2017. Basophil pct 0.7 % [facility] Comment: Interpretive Data Percent cell count reference ranges are not reported, since discordance with absolute values may lead to misinterpretation of CBC data. Current Interpretive Data was last revised on 2017. Blood 06/14/2023 6:52 PM RIFFLER TENDER 06/14/2023 6:54 PM RIFFLER TENDER us Jadon Bruno III, MD LAB BLOOD ORDER CLAIRE Final Result Performing Organization Address City/State/ZIP Co sc Phone Number [facility] [address] [facility] Department [place] [address] * (ABNORMAL) Pro B-type natriuretic peptide (06/14/2023 6:52 PM RIFFLER TENDER) NT-proBNP 6,669(H) <=450 pg/mL [facility] Comment: Interpretive Comments: [...] Interpretive Data Last Revised Date: 2018. Blood 06/14/2023 6:52 PM RIFFLER TENDER 06/14/2023 6:54 PM RIFFLER TENDER Jadon Bruno III, MD LAB BLOOD ORDER CLAIRE Final Result Performing Organization Address [facility] de Phone Number [facility] [address] Department [employer] [place] [address] * (ABNORMAL) Troponin T high-sensitivity series (baseline, 2hr, 4hr, 6hr) (06/14/2023 6:52 PM RIFFLER TENDER) Trop T hs 22(H) <=14 ng/L [facility] Comment: Interpretive Data For further hscTnT resources including the diagnostic algorithm and an aid in interpretation, copy and paste this link: https://nrl.testcatalog.org/show/hsTrop Current Interpretive Data last revised 2020. Blood 06/14/2023 6:52 PM RIFFLER TENDER 06/14/2023 6:54 PM RIFFLER TENDER Jadon Bruno III, MD LAB BLOOD ORDER CLAIRE Final Result Performing Organization Address [facility] Co de Phone Number [facility] [address] [email or web address] [address] * (ABNORMAL) CBC with auto differential (06/14/2023 6:52 PM RIFFLER TENDER) WBC 9.4 3.8 - 9.9 K/cumm [facility] Hgb 9.5(L) 11.9 - 15.5 g/dL [facility] Hct 32.2(L) 35.6 - 45.5 % [facility] Plt 419(H) 150 - 400 K/cumm [facility] MPV 8.8(L) 9.1 - 12.3 fL [facility] RBC 4.17 3.90 - 5.20 M/cumm [facility] MCV 77.2(L) 81.3 - 96.4 fL [facility] CH MCH 22.8(L) 27.1 - 33.3 pg [facility] CH MCHC 29.5(L) 32.3 - 35.7 g/dL [facility] RDW CV 16.0(H) 11.1 - 14.9 % [facility] CH RDW SD 44.9 35.7 - 48.1 fL [facility] CH NRBC abs 0.00 0.00 - 0.01 K/cumm [facility] Blood 06/14/2023 6:52 PM RIFFLER TENDER 06/14/2023 6:54 PM RIFFLER TENDER us Jadon Bruno III, MD LAB BLOOD ORDER CLAIRE Final Result [facility] [address] Department [place] [address] * (ABNORMAL) Comprehensive metabolic panel (06/14/2023 6:52 PM RIFFLER TENDER) Sodium 133(L) 135 - 145 mmol/L [facility] CH Potassium, pl 5.0(H) 3.3 - 4.9 mmol/L [facility] Chloride 97 97 - 110 mmol/L [facility] CO2 26 22 - 32 mmol/L [facility] Anion gap 10 2 - 15 mmol/L [facility] BUN 37(H) 6 - 25 mg/dL [facility] Creatinine 1.84(H) 0.60 - 1.10 mg/dL [facility] Glucose 103 70 - 199 mg/dL [facility] Comment: [...] - 5.0 g/dL [facility] Alk phos 125 40 - 130 Units/L [facility] ALT 12 7 - 45 Units/L [facility] CH AST 21 10 - 45 Units/L [facility] Blood 06/14/2023 6:52 PM RIFFLER TENDER 06/14/2023 6:54 PM RIFFLER TENDER us Jadon Bruno III, MD LAB BLOOD [place] [address] [address] Department [place] [address] * XR Chest PA Lateral 2 Views (06/14/2023 4:35 PM RIFFLER TENDER) Anatomical Region Laterality Modality Body, Chest N/A Computed Radiogr aphy 06/14/2023 4:36 PM RIFFLER TENDER Impressions 06/14/2023 4:36 PM RIFFLER TENDER No active pulmonary disease. Electronically signed by: Rom Hull M.D. Narrative 06/14/2023 4:36 PM RIFFLER TENDER EXAMINATION: XR CHEST PA LATERAL 2 VIEWS DATE: 06/14/2023 4:25 PM HISTORY: Shortness of breath FINDINGS: There is no infiltrate, effusion or pneumothorax. ??The heart is enlarged. ??Pulmonary vascularity is normal. ??There is calcification in the thoracic aorta. Procedure Note Rom Hull MD - 06/14/2023 EXAMINATION: XR CHEST PA LATERAL 2 VIEWS DATE: 06/14/2023 4:25 PM HISTORY: Shortness of breath FINDINGS: There is no infiltrate, effusion or pneumothorax. The heart is enlarged. Pulmonary vascularity is normal. There is calcification in the thoracic aorta. IMPRESSION: No active pulmonary disease. Electronically signed by: Rom Hull M.D. Jadon Bruno III, MD IM XR PROCEDUR ES Final Result * Respiratory pathogen panel Nasopharyngeal (06/14/2023 4:23 PM RIFFLER TENDER) Influenza A RNA Not Detected Not Detected [facility] Influenza B RNA Not Detected Not Detected [facility] RSV RNA Not Detected Not Detected CERNER CH COVID-19 RNA Not Detected Not Detected CERNER CH Coronavirus 229E RNA Not Detected Not Detected CERNER CH Coronavirus HKU1 RNA Not Detected Not Detected CERNER CH Coronavirus NL63 RNA Not Detected Not Detected CERNER CH Coronavirus OC43 RNA Not Detected Not Detected CERNER CH Adenovirus DNA Not Detected Not Detected CERNER CH Metapneumovirus RNA Not Detected Not Detected CERNER CH Rhinovirus/Enterov irus RNA Not Detected Not Detected CERNER CH Parainfluenza 1 RNA Not Detected Not Detected CERNER CH Parainfluenza 2 RNA Not Detected Not Detected CERNER CH Parainfluenza 3 RNA Not Detected Not Detected CERNER CH Parainfluenza 4 RNA Not Detected Not Detected CERNER B. pertussis DNA Not Detected Not Detected CERNER B. parapertussis DNA Not Detected Not Detected CERNER C. pneumoniae DNA Not Detected Not Detected CERNER M. pneumoniae DNA Not Detected Not Detected CERNER Comment: Interpretive Data The [employer] FilmArray Respiratory Panel (RP2.1) assay is a multiplexed real-time PCR based nucleic acid test capable of simultaneous qualitative detection and identification of multiple respiratory viral and bacterial nucleic acids, including SARS Coronavirus 2 (the causative agent of COVID-19). The following bacteria, viruses and virus subtypes can be identified using the FilmArray RP2.1 assay: Bordetella pertussis, Bordetella parapertussis, Chlamydia pneumoniae, Mycoplasma pneumoniae, Adenovirus, SARS Coronavirus 2, seasonal coronaviruses (Coronavirus HKU1, Coronavirus NL63, Coronavirus 229E, and Coronavirus OC43), Influenza A, Influenza A subtype H1, Influenza A subtype H3, Influenza A subtype 2009 H1, Influenza B, Metapneumovirus, Parainfluenza 1, Parainfluenza 2, Parainfluenza 3, Parainfluenza 4, RSV, Rhinovirus/Enterovirus. Due to the genetic similarity between human Rhinovirus and Enterovirus, the FilmArray RP2.1 assay cannot reliably differentiate them. Coronavirus OC43 may cross-react with some isolates of Coronavirus HKU1. ??A dual positive result may be due to cross-reactivity or may indicate a co-infection. The detection and identification of specific viral and bacterial nucleic acids from individuals exhibiting signs and symptoms of a respiratory infection aids in the diagnosis of respiratory infection if used in conjunction with other clinical and epidemiological information. ??The results of this test should not be used as the sole basis for diagnosis, treatment, or other management decisions. ??Negative results in the setting of a respiratory illness may be due to infection with pathogens that are not detected by this test. ??Positive results do not rule out infection/co-infection with other organisms. ??The agent(s) detected by the FilmArray RP2.1 may not be the definite cause of disease. ??Additional testing (lab, imaging, etc.) may be necessary when evaluating a patient with possible respiratory tract infection. The FilmArray RP2.1 assay has FDA clearance for testing of VENDING MACHINE MECHANIC swabs. ??The performance characteristics of this assay have been determined by [facility]. Current interpretive data was last revised on 2021. Nasopharyngeal 06/14/2023 4: 23 PM RIFFLER TENDER 06/14/2023 4:34 PM RIFFLER TENDER Narrative [facility] - 06/14/2023 6:43 PM RIFFLER TENDER Is the Patient experiencing symptoms consistent with COVID?->Yes Date of Symptom Onset->06/07/23 Reason for testing?->Symptomatic Surveillance testing for transplant patient?->No Jadon Bruno III, MD LAB MICROBIOLOG Y - GENERAL ORDERABLES Final Result [facility] [id number] Department [place] [address] * ECG 12 lead (06/14/2023 4:20 PM RIFFLER TENDER) 06/14/2023 4:20 PM RIFFLER TENDER Narrative [facility] - 06/15/2023 8:02 AM RIFFLER TENDER Vent Rate: 65 bpm RR Interval: 911 msec [place] Interval: 0 msec QRS Duration: 66 msec QT Interval: 385 msec QTC Interval: 397 msec P-R-T [place]: 0 - 53 - 27 degrees IMPRESSION: ATRIAL FIBRILLATION LOW QRS VOLTAGE IN PRECORDIAL LEADS ??[QRS DEFLECTION < 1.0 mV IN CHEST LEADS] MODERATE ST DEPRESSION ??[0.05+ mV ST DEPRESSION] ABNORMAL ECG Electronically Signed By: Dr. Gardenia Harper [facility] Jadon Bruno III, MD ECG ORDERABLES Final Result [facility] documented in this encounter Visit Diagnoses Diagnosis Acute on chronic heart failure, unspecified heart failure type (HCC) Dyspnea on exertion Other dyspnea and respiratory abnormality Chest pain, unspecified type Restless legs syndrome Restless legs syndrome (RLS) Acute on chronic heart failure, unspecified heart failure type (HCC) documented in this encounter Admitting Diagnoses Diagnosis Acute on chronic heart failure, unspecified heart failure type (HCC) documented in this encounter Administered Medications Inactive Administered Medications - up to 3 most recent administrations Medication Order MAR Action Action Date Dose Rate Site acetaminophen (TYLENOL) tablet 650 mg 650 mg, oral, Every 6 hours PRN, 1st line for pain, Starting on Mon06/14/23 at 2237 Given 06/15/2023 10:01 PM RIFFLER TENDER 650 mg albuterol HFA (PROVENTIL HFA,VENTOLIN HFA,PROAIR HFA) 90 mcg/actuation inhaler 2 puff 2 puff, inhalation, Every 6 hours PRN (manager social responsibility), wheezing, shortness of breath, Starting on Mon06/14/23 at 2245 Given 06/16/2023 5:27 AM RIFFLER TENDER 2 puffs aspirin enteric coated tablet 81 mg 81 mg, oral, Daily, First dose on Mon06/15/23 at 0900, Do not crush, chew, cut, dissolve, open or otherwise manipulate tablet/capsule. Given 06/17/2023 8:46 AM RIFFLER TENDER 81 mg Given 06/16/2023 11:11 AM RIFFLER TENDER 81 mg Given 06/15/2023 8:45 AM RIFFLER TENDER 81 mg calcium carbonate (TUMS) chewable tablet 500 mg 500 mg (200 mg of elemental calcium), oral, 3 times daily PRN, indigestion, heartburn, Starting on Mon06/16/23 at 2115 Given 06/16/2023 9:21 PM RIFFLER TENDER 500 mg carvediloL (COREG) tablet 6.25 mg 6.25 mg, oral, 2 times daily with meals (bkfst, dinner), First dose on Mon06/15/23 at 0830 Given 06/17/2023 8:49 AM RIFFLER TENDER 6.25 mg Given 06/15/2023 5:30 PM RIFFLER TENDER 6.25 mg Given 06/15/2023 8:46 AM RIFFLER TENDER 6.25 mg cetirizine (ZyrTEC) tablet 10 mg 10 mg, oral, Nightly, First dose on Mon06/14/23 at 2239 Given 06/16/2023 9:16 PM RIFFLER TENDER 10 mg Given 06/15/2023 8:32 PM RIFFLER TENDER 10 mg Given 06/14/2023 11:55 PM RIFFLER TENDER 10 mg cholecalciferol (VITAMIN D-3) tablet 2,000 Units 2,000 Units, oral, Daily, First dose on Mon06/15/23 at 0900, Each tablet contains 1,000 units (25 mcg) of cholecalciferol. Given 06/17/2023 8:48 AM RIFFLER TENDER 2,000 Units Given 06/16/2023 11:10 AM RIFFLER TENDER 2,000 Units Given 06/15/2023 8:45 AM RIFFLER TENDER 2,000 Units clonazePAM (KlonoPIN) tablet 0.5 mg 0.5 mg, oral, Nightly, First dose on Mon06/14/23 at 2239 Given 06/15/2023 8:32 PM RIFFLER TENDER 0.5 mg Given 06/14/2023 11:55 PM RIFFLER TENDER 0.5 mg cyclobenzaprine (FLEXERIL) tablet 10 mg 10 mg, oral, 3 times daily PRN, muscle spasms, Starting on Mon06/15/23 at 0030 Given 06/16/2023 9:21 PM RIFFLER TENDER 10 mg Given 06/15/2023 10:01 PM RIFFLER TENDER 10 mg Given 06/15/2023 11:19 AM RIFFLER TENDER 10 mg dapagliflozin propanediol (FARXIGA) tablet 10 mg 10 mg, oral, Daily, First dose on Mon06/15/23 at 0900, Indications: heart failure associated with type 2 diabetes mellitusIndications:heart failure associated with type 2 diabetes mellitus Given 06/17/2023 8:49 AM RIFFLER TENDER 10 mg Given 06/16/2023 11:11 AM RIFFLER TENDER 10 mg Given 06/15/2023 8:46 AM RIFFLER TENDER 10 mg fluticasone furoate-vilanteroL (BREO ELLIPTA) 200-25 mcg/dose inhaler 1 puff 1 puff, inhalation, Daily (manager social responsibility), First dose on [place] 06/15/23 at 0900 Given 06/16/2023 12:43 PM RIFFLER TENDER 1 puff Given 06/15/2023 11:09 AM RIFFLER TENDER 1 puff furosemide (LASIX) 10 mg/mL injection 40 mg 40 mg, intravenous, Once, On Mon06/14/23 at 2159, For 1 dose, For IV push: administer doses < 160 mg at a rate of 20 -40 mg/min. Doses >/= 160 mg should be administered no faster than 4 mg/min. Room temperature only Given 06/14/2023 10: 46 PM RIFFLER TENDER 40 mg furosemide (LASIX) 10 mg/mL injection 40 mg 40 mg, intravenous, 2 times daily (for diuretics), First dose (after last modification) on [place]y 06/15/23 at 0900, For IV push: administer doses < 160 mg at a rate of 20 -40 mg/min. Doses >/= 160 mg should be administered no faster than 4 mg/min. Room temperature only Given 06/16/2023 11:10 AM RIFFLER TENDER 40 mg Given 06/15/2023 5:30 PM RIFFLER TENDER 40 mg Given 06/15/2023 8:52 AM RIFFLER TENDER 40 mg furosemide (LASIX) tablet 40 mg 40 mg, oral, Daily, First dose on Mon06/16/23 at 1245 Given 06/17/2023 8:47 AM RIFFLER TENDER 40 mg Given 06/16/2023 6:08 PM RIFFLER TENDER 40 mg gabapentin (NEURONTIN) capsule 300 mg 300 mg, oral, 3 times daily, First dose on Mon06/14/23 at 2239 Given 06/15/2023 8:32 PM RIFFLER TENDER 300 mg Given 06/15/2023 5:30 PM RIFFLER TENDER 300 mg Given 06/14/2023 11:55 PM RIFFLER TENDER 300 mg gabapentin (NEURONTIN) capsule 300 mg 300 mg, oral, Nightly, First dose (after last modification) on Mon06/16/23 at 2100 Given 06/16/2023 9:16 PM RIFFLER TENDER 300 mg ipratropium-albuteroL (DUO-NEB) 0.5-2.5 mg/3 mL nebulizer solution 3 mL 3 mL, nebulization, Every 4 hours PRN (manager social responsibility), wheezing, shortness of breath, Starting on Mon06/14/23 at 2245, Indications: Chronic Obstructive Pulmonary Disease with BronchospasmsIndications:Chronic Obstructive Pulmonary Disease with Bronchospasms metOLazone (ZAROXOLYN) tablet 2.5 mg 2.5 mg, oral, Every other day, First dose on [place] 06/15/23 at 0900 Given 06/17/2023 8:47 AM RIFFLER TENDER 2.5 mg Given 06/15/2023 8:46 AM RIFFLER TENDER 2.[address] (PROTONIX) extended release tablet 40 mg 40 mg, oral, Daily, First dose on Mon06/15/23 at 0900, Do not crush, chew, cut, dissolve, open or otherwise manipulate tablet/capsule., Indications: Treatment of Non-Bleeding Gastric DisorderIndications:Treatment of Non-Bleeding Gastric Disorder Given 06/17/2023 8:49 AM RIFFLER TENDER 40 mg Given 06/16/2023 11:11 AM RIFFLER TENDER 40 mg Given 06/15/2023 8:46 AM RIFFLER TENDER 40 mg potassium chloride ER (KLOR-CON) extended release tablet 40 mEq 40 mEq, oral, Once, On 06/17/23 at 0830, For 1 dose, Do not crush, chew, cut, dissolve, open or otherwise manipulate tablet/capsule. Given 06/17/2023 8:48 AM RIFFLER TENDER 40 mEq pramipexole (MIRAPEX) tablet 0.5 mg 0.5 mg, oral, 2 times daily, First dose on Mon06/14/23 at 2239, Indications: Idiopathic Parkinsonism, Restless Legs SyndromeIndications:Idiopathic Parkinsonism,Restless Legs Syndrome Given 06/17/2023 8:46 AM RIFFLER TENDER 0.5 mg Given 06/16/2023 9:17 PM RIFFLER TENDER 0.5 mg Given 06/16/2023 11:26 AM RIFFLER TENDER 0.5 mg propranoloL (INDERAL) tablet 20 mg 20 mg, oral, 2 times daily PRN, Tremor, Starting on Mon06/14/23 at 2238 Given 06/14/2023 11:55 PM RIFFLER TENDER 20 mg rivaroxaban (XARELTO) tablet 20 mg 20 mg, oral, Daily, First dose on [place]y 06/15/23 at 0900, Nurse to discontinue heparin infusion order and associated bolus at first administration of rivaroxaban using 'order condition met' order source. If patient is eating, administer doses of 15 mg or greater with food. If patient is not eating, still administer dose unless instructed differently by provider. , Indications: atrial fibrillationIndications:atrial fibrillation Given 06/17/2023 8:47 AM RIFFLER TENDER 20 mg Given 06/16/2023 11:11 AM RIFFLER TENDER 20 mg Given 06/15/2023 8:46 AM RIFFLER TENDER 20 mg spironolactone (ALDACTONE) tablet 25 mg 25 mg, oral, 2 times daily, First dose on Mon06/14/23 at 2239 Given 06/14/2023 11:55 PM RIFFLER TENDER 25 mg documented in this encounter Discontinued Medications Medication Sig Discontinue Reason Start Date End Da te gabapentin (NEURONTIN) 300 mg capsuleIndications:Res tless legs syndrome Take 1 capsule (300 mg total) by mouth 3 (three) times a day 04/21/2023 06/17/2023 spironolactone (ALDACTONE) 25 mg tablet Take 1 tablet (25 mg total) by mouth 2 (two) times a day Stop Taking at Discharge 01/27/2023 06/17/2023 furosemide (LASIX) 20 mg tablet Take 1 tablet (20 mg total) by mouth 2 (two) times a day Stop Taking at Discharge 02/21/2023 06/17/2023 documented as of this encounter Active and Recently Administered Medications Times are shown in RIFFLER TENDER. Scheduled Medication Order 06/15/2023 06/16/2023 06/17/2023 aspirin enteric coated tablet 81 mg 81 mg, oral, Daily, First dose on [place] 06/15/23 at 0900, Do not crush, chew, cut, dissolve, open or otherwise manipulate tablet/capsule. 0845 (Given - Provider: Tonny Villaseñor, XU) 1111 (Given - Provider: Camille Jacobo RN) 0846 (Given - Provider: Corazon Rodrigues RN) carvediloL (COREG) tablet 6.25 mg 6.25 mg, oral, 2 times daily with meals (bkfst, dinner), First dose on Mon06/15/23 at 0830 0846 (Given - Provider: Tonny Villaseñor, XU)1730 (Given - Provider: Tonny Villaseñor RN) 1109 (Not Given - Provider: Camille Jacobo RN - Reason: Other - Comment: pt asymptomatic would trisha to the 30's)1807 (Not Given - Provider: Camille Jacobo RN - Reason: Other - Comment: trisha down to the 30's) 0849 (Given - Provider: Corazon Rodrigues, XU) cetirizine (ZyrTEC) tablet 10 mg 10 mg, oral, Nightly, First dose on Mon06/14/23 at 2238 2031 (Given - Provider: Ivone Kelly RN) 2115 (Given - Provider: Ivone Kelly RN) cholecalciferol (VITAMIN D-3) tablet 2,000 Units 2,000 Units, oral, Daily, First dose on Mon06/15/23 at 0900, Each tablet contains 1,000 units (25 mcg) of cholecalciferol. 0845 (Given - Provider: Tonny Villaseñor RN) 1110 (Given - Provider: Camille Jacobo RN) 0848 (Given - Provider: Corazon Rodrigues, UX) clonazePAM (KlonoPIN) tablet 0.5 mg 0.5 mg, oral, Nightly, First dose on Mon06/14/23 at 2238 2031 (Given - Provider: Ivone Kelly RN) 2114 (Not Given - Provider: Ivone Kelly RN - Reason: Patient/family refused) dapagliflozin propanediol (FARXIGA) tablet 10 mg 10 mg, oral, Daily, First dose on Mon06/15/23 at 0900, Indications: heart failure associated with type 2 diabetes mellitus 0846 (Given - Provider: Tonny Villaseñor RN) 1111 (Given - Provider: Camille Jacobo RN) 0849 (Given - Provider: Corazon Rodrigues, XU) fluticasone furoate-vilanteroL (BREO ELLIPTA) 200-25 mcg/dose inhaler 1 puff 1 puff, inhalation, Daily (manager social responsibility), First dose on Mon06/15/23 at 0900 1109 (Given - Provider: Greg Shirley, PHYSICIAN NON INVASIVE CARDIOLOGIST) 1243 (Given - Provider: Barbie Bernal, PHYSICIAN NON INVASIVE CARDIOLOGIST) 1105 (Not Given - Provider: Quirino Pa, CESAR - Reason: Other) furosemide (LASIX) 10 mg/mL injection 40 mg (CANCELED) 40 mg, intravenous, 2 times daily (for diuretics), First dose (after last modification) on Mon06/15/23 at 0900, For IV push: administer doses < 160 mg at a rate of 20 -40 mg/min. Doses >/= 160 mg should be administered no faster than 4 mg/min. Room temperature only 0852 (Given - Provider: Tonny Villaseñor RN)1730 (Given - Provider: Tonny Villaseñor RN) 1110 (Given - Provider: Camille Jacobo, XU) furosemide (LASIX) tablet 40 mg 40 mg, oral, Daily, First dose on Mon06/16/23 at 1245 1808 (Given - Provider: Camille Jacobo RN) 0847 (Given - Provider: Corazon Rodrigues, XU) gabapentin (NEURONTIN) capsule 300 mg (CANCELED) 300 mg, oral, 3 times daily, First dose on Mon06/14/23 at 2239 0849 (Not Given - Provider: Tonny Villaseñor RN - Reason: Patient/family refused - Comment: states she only takes at HS)1730 (Given - Provider: Tonny Villaseñor RN)2032 (Given - Provider: Ivone Kelly, XU) 1107 (Not Given - Provider: Camille Jacobo, XU - Reason: Other) gabapentin (NEURONTIN) capsule 300 mg 300 mg, oral, Nightly, First dose (after last modification) on Mon06/16/23 at 2100 2116 (Given - Provider: Ivone Kelly, XU) metOLazone (ZAROXOLYN) tablet 2.5 mg 2.5 mg, oral, Every other day, First dose on Mon06/15/23 at 0900 0846 (Given - Provider: Tonny Villaseñor RN) 0847 (Given - Provider: Corazon Rodrigues, XU) pantoprazole DR (PROTONIX) extended release tablet 40 mg 40 mg, oral, Daily, First dose on [place] 06/15/23 at 0900, Do not crush, chew, cut, dissolve, open or otherwise manipulate tablet/capsule., Indications: Treatment of Non-Bleeding Gastric Disorder 0846 (Given - Provider: Tonny Villaseñor RN) 1111 (Given - Provider: Camille Jacobo RN) 0849 (Given - Provider: Corazon Rodrigues RN) potassium chloride ER (KLOR-CON) extended release tablet 40 mEq (COMPLETED) 40 mEq, oral, Once, On 06/17/23 at 0830, For 1 dose, Do not crush, chew, cut, dissolve, open or otherwise manipulate tablet/capsule. 0848 (Given - Provider: Corazon Rodrigues RN) pramipexole (MIRAPEX) tablet 0.5 mg 0.5 mg, oral, 2 times daily, First dose on Mon06/14/23 at 2239, Indications: Idiopathic Parkinsonism, Restless Legs Syndrome 0850 (Given - Provider: Tonny Villaseñor RN)2032 (Given - Provider: Ivone Kelly, XU) 112 (Given - Provider: Camille Jacobo, XU)2116 (Given - Provider: Ivone Kelly RN) 0846 (Given - Provider: Corazon Rodrigues, XU) rivaroxaban (XARELTO) tablet 20 mg 20 mg, oral, Daily, First dose on [place] 06/15/23 at 0900, Nurse to discontinue heparin infusion order and associated bolus at first administration of rivaroxaban using 'order condition met' order source. If patient is eating, administer doses of 15 mg or greater with food. If patient is not eating, still administer dose unless instructed differently by provider. , Indications: atrial fibrillation 0846 (Given - Provider: Tonny Villaseñor RN) 1111 (Given - Provider: Camille Jacobo RN) 0847 (Given - Provider: Corazon Rodrigues, XU) PRN Medication Order 06/15/2023 06/16/2023 06/17/2023 acetaminophen (TYLENOL) tablet 650 mg 650 mg, oral, Every 6 hours PRN, 1st line for pain, Starting on Mon06/14/23 at 2237 2201 (Given - Provider: Ivone Kelly RN) albuterol HFA (PROVENTIL HFA,VENTOLIN HFA,PROAIR HFA) 90 mcg/actuation inhaler 2 puff 2 puff, inhalation, Every 6 hours PRN (manager social responsibility), wheezing, shortness of breath, Starting on Mon06/14/23 at 2245 0527 (Given - Provider: Mira Milligan, PHYSICIAN NON INVASIVE CARDIOLOGIST) calcium carbonate (TUMS) chewable tablet 500 mg 500 mg (200 mg of elemental calcium), oral, 3 times daily PRN, indigestion, heartburn, Starting on Mon06/16/23 at 2115 2121 (Given - Provider: Ivone Kelly RN) cyclobenzaprine (FLEXERIL) tablet 10 mg 10 mg, oral, 3 times daily PRN, muscle spasms, Starting on Mon06/15/23 at 0030 0034 (Given - Provider: Natasha Mejias RN)111 (Given - Provider: Sue Hagan RN)2200 (Given - Provider: Ivone Kelly RN) 2120 (Given - Provider: Ivone Kelly RN) ipratropium-albuteroL (DUO-NEB) 0.5-2.5 mg/3 mL nebulizer solution 3 mL 3 mL, nebulization, Every 4 hours PRN (manager social responsibility), wheezing, shortness of breath, Starting on Mon06/14/23 at 2245, Indications: Chronic Obstructive Pulmonary Disease with Bronchospasms ondansetron (ZOFRAN) injection 4 mg 4 mg, intravenous, Administer over 2 Minutes, Every 4 hours PRN, nausea, vomiting, Starting on Mon06/14/23 at 2237 polyethylene glycol (MIRALAX) packet 17 g 17 g, oral, Daily PRN, constipation, Starting on Mon06/14/23 at 2238, Indications: constipation propranoloL (INDERAL) tablet 20 mg 20 mg, oral, 2 times daily PRN, Tremor, Starting on Mon06/14/23 at 2238 documented in this encounter Orders Medications Ordered That Alhaji ht Not Have Been Administered Count Last Ordered Date First Ordered Date albuterol HFA (PROVENTIL HFA ,VENTOLIN HFA,PROAIR HFA) 90 mcg/actuation inhaler 2 puff 1 06/14/2023 furosemide (LASIX) 10 mg/mL injection 40 mg 1 06/14/2023 ipratropium-albuteroL (DUO-N EB) 0.5-2.5 mg/3 mL nebulizer solution 3 mL 1 06/14/2023 ondansetron (ZOFRAN) injection 4 mg 1 06/14 polyethylene glycol (MIRALAX) packet 17 g 1 06/14/2023 Diet Count Last Ordered Date First Orde red Date ADULT DISCHARGE DIET 1 06/17/2023 Nursing Count Last Ordered Date First Orde red Date DISCHARGE ACTIVITY 2 06/17/2023 DISCHARGE CALL PROVIDER 3 06/17/2023 FOLLOW UP WITH ESTABLISHED PROVIDER 2 06/17 MISCELLANEOUS NURSING CARE ORDER (SPECIFY) 1 06/14/2023 TELEMETRY MONITORING 1 06/14/2023 Consult Count Last Ordered Date First Orde red Date IP CONSULT TO CARDIOLOGY 1 06/14/2023 IP CONSULT TO NEPHROLOGY 1 06/14/2023 IV Count Last Ordered Date First Orde red Date SALINE LOCK IV 1 06/14/2023 Admission Count Last Ordered Date First Orde red Date ADMIT TO INPATIENT 1 06/14/2023 Discharge Count Last Ordered Date First Orde red Date DISCHARGE PATIENT 1 06/17/2023 CORE MEASURES Count Last Ordered Date First Ord ered Date REASON FOR NO ACEI OR ARB AT DISCHARGE 1 REASON FOR NO VTE PROPHYLAXIS AT ADMISSION 1 06/14/2023 documented in this encounter Care Teams Director Compensation Relationship Specialty Start Date End Date Pepper Pelaez MD PCP - General 09/16/16 Hank Garibay MD [address] [facility] [address] [place] [address] Surgeon Orthopedic Surgery 03/27/17 Jacky Murry MD [address] [facility] [address] [place] [address] Ophthalmology 03/27/17 Puma Mckenzie MD [address] [facility] [address] [place] [address] Surgeon Orthopedic Surgery 07/11/19 Neha Jackson, PT Physical Therapist Physical Therapy 12/01/21 Chandu Arauz MD [address] [facility] [address] [place] [address] Consulting Physician Cardiology 12/08/22 Tiffany Rojas PA [address] [facility] [address] [place] [address] Gastroenterology 12/30/22 Klaus Deshpande MD [address] [facility] [address] [place] [address] Consulting Physician Neurology 06/13/23 documented as of this encounter
--- OUTSIDE RECORDS SUMMARY | 2024-06-18 18:51 | XMS_ITS | Encounter Summary ---
Author Organization [facility] Healthcare Address [address] [place] [address] Care Team Providers Care Director Of Labor And Delivery Name Role Phone Pepper Morgan MD Primary Care Provider + [phone] Hank Garibay MD Unavailable [phone] Jacky Murry MD Unavailable [phone] Puma Mckenzie MD Unavailable [phone] Neha Jackson PT Unavailable Unavailable Stalin Arauz MD Unavailable [phone] Tiffany Rojas Unavailable [phone] Klaus Deshpande MD Unavailable [phone] Reason for Visit * Reason Onset Date Comments IRON SUCROSE INFUSIONS 07/19/2023 Encounter Details Date Type Department Care Team (Late st Contact Info) Description 07/19/2023 Telephone [facility] [address] [place] [address] Luis E Washington, RN IRON SUCROSE INFUSIONS Social History Tobacco Use Types Packs/Day Years Used Date Smoking Tobacco: Former Cigarettes 2 30 1 952 - 1982 Smokeless Tobacco: Never Alcohol Use Standard Drinks/Week Comments Not Currently 0 (1 standard drink = 0.6 oz pur e alcohol) [facility] Utilities Answer Date Recorded In the past 12 months has th e electric, gas, oil, or water Scatter Lab threatened to shut off services in your [...] file Legal Sex Female 4:33 AM CLOTH FOLDER HAND Gender Identity Not on file Sexual Orientation Not on file Occupation Industry Job Start Date Job End Date retired Not on file Not on file Not on file documented as of this encounter Ordered Prescriptions Prescription Sig Dispense Quantity Refills Last Filled Start Date End Date sodium chloride 0.9% 0.9% parenteral solution 250 mL with iron sucrose 100 mg/5 mL (elemental iron) solution 300 mgIndications:Iron Deficiency Anemia Infuse 300 mg into a venous catheter once for 1 dose 300mg per IV weekly x 3 total weeks. 300 mg 2 07/19/2023 4 documented in this encounter Miscellaneous Notes * Telephone Encounter - Chata Zee MA - 12/26/2023 1:29 PM CDT Complete by 01/11/24 * Telephone Encounter - Chata Zee MA - 12/26/2023 1:29 PM CDT Complete by 01/11/24 * Telephone Encounter - Charity Pinedo LPN - 07/19/2023 11:27 AM CLOTH FOLDER HAND Informed pt [phone] that [facility] did review recent labs which show she is still anemic and iron deficient. Informed pt that [facility] would like her to do Iron Sucrose Infusions 300mg weekly x 3 weeks at [facility] then repeat CBC & Iron Profile in 6 weeks. Pt did voice understanding to all andagrees with these plans. Pt states she will do the repeat labs at [facility] also. Informed pt that the repeat labs will be due approximately 08/30/23 & that orders are completed today. Informed pt thatorders will be completed for the Iron infusions today & someone from [facility] shouldbe contacting her to schedule the infusions. Pt did voice understanding to all and had no further qu estions/concerns at this time. Message sent to pt thru [facility] reminding pt to repeat the labs at [facility] approximately 08/30/23. Pt has Medicare as primary insurance, therefore, no prior authorization required for the iron sucrose infusions. Orders completed for Iron Sucrose (Venofer) 300mg per IV once weekly x 3 weeks. Faxed the order, face sheet, and insurance cards to [facility] [phone] with fax confirmation received. H FOLDER HAND * Telephone Encounter - Luis E Washington RN - 07/19/2023 10:42 AM CLOTH FOLDER HAND ----- Message from Pepper Morgan MD sent at 07/19/2023 2:14 AM CLOTH FOLDER HAND ----- She is still anemic and iron deficient. She was to be set up for iron sucrose infusion 300 mg every1-2 weeks x3. Make sure she has those orders and has a recheck CBC iron profile scheduled in 6 weeks diagnosis = iron deficiency anemia H FOLDER HAND documented in this encounter Plan of Treatment [...] as of this encounter Results * (ABNORMAL) Iron profile w/ IBC (12/29/2023 8:25 AM CDT) Iron 55 35 - 145 mcg/dL TIBC 404(H) 250 - 400 mcg/dL [facility] ([place]) Transferrin saturation 14(L) 20 - 50 % [facility] ([place]) Blood 12/29/2023 8:25 AM CDT 12/29/2023 8:43 AM CDT us Pepper Morgan MD LAB BLOOD ORDERABLES Final Result [facility] ([place]) [facility] Department [place] [address] * (ABNORMAL) CBC with auto differential (12/29/2023 [...] abs 0.00 0.00 - 0.01 K/cumm [facility] ([place]) Blood 12/29/2023 8:25 AM CDT 12/29/2023 8:43 AM CDT us Pepper Morgan MD LAB BLOOD ORDERABLES Final Result [facility] ([place]) 1 [facility] Department [place] [address] documented in this encounter Visit Diagnoses Diagnosis Iron deficiency anemia, unspecified iron deficiency anemia type- Primary documented in this encounter Care Teams Director Of Labor And Delivery Relationship Specialty Start Date End Date Pepper Morgan MD PCP - General 09/16/16 Hank Garibay MD [address] [facility] [address] [place] [address] Surgeon Orthopedic Surgery 03/27/17 Jacky Murry MD [address] [facility] [address] [facility] [address] [place] [address] Ophthalmology 03/27/17 Puma Mckenzie MD [address] [facility] [address] [place] [address] Surgeon Orthopedic Surgery 07/11/19 Neha Jackson, PT Physical Therapist Physical Therapy 12/01/21 Stalni Arauz MD [address] [facility] [address] [place] [address] Consulting Physician Cardiology 12/08/22 Tiffany Rojas PA [address] [facility] [address] [place] [address] Gastroenterology 12/30/22 Klaus Deshpande MD 4 [facility] [address] [address] Consulting Physician Neurology 06/13/23 documented as of this encounter
--- OUTSIDE RECORDS SUMMARY | 2024-06-18 18:51 | XMS_ITS | Encounter Summary ---
Author Organization [facility] Address [address] [place] [address] Care Team Providers Care Solar Resource Assessor Name Role Phone Pepper Morgan MD Primary Care Provider + [phone] Hank Garibay MD Unavailable [phone] Jacky Murry MD Unavailable [phone] Puma Mckenzie MD Unavailable [phone] Neha Jackson PT Unavailable Unavailable Stalin Arauz MD Unavailable [phone] Tiffany Rojas Unavailable [phone] Klaus Deshpande MD Unavailable [phone] Encounter Details Date Type Department Care Team (Late st Contact Info) Description 06/14/2023 Telephone [facility] at [address] [place] [phone] Meryl Burgos MA Social History Tobacco Use [...] attend chur ch or adventism services? Never 12/29/2022 Do you [...] slept in a m[facility]p (including now)? No 12/29/2022 Personal Safety Answer Date Recorded Getting School Help Needed Denies 05/29 Comments No Sex and Gender Information Value Date Recorded Sex Assigned at Not on file Legal Sex Female 4:33 AM DOCUMENT CONTROL ASSISTANT Gender Identity Not on file Sexual Orientation Not on file Occupation Industry Job Start Date Job End Date retired Not on file Not on file Not on file documented as of this encounter Miscellaneous Notes * Telephone Encounter - Meryl Burgos MA - 06/14/2023 3:09 PM DOCUMENT CONTROL ASSISTANT Pt called stating she spoke with Hai this morning about her low BP and Dr Arauz told pt to stop taking 3 of her medications to see if BP would improve. Pt states she just took her BP and it was 107/35 which is even lower than it was this morning. She also c/o SOB, very tired and can barely walk.I advised pt to get to the ER for an evaluation. Pt agreed and verbalized understanding. MENT CONTROL ASSISTANT documented in this encounter Plan of [...] on filedocumented in this encounter Care Teams Solar Resource Assessor Relationship Specialty Start Date End Date Pepper Morgan MD PCP - General 09/16/16 Hank Garibay MD [address] [place] [address] [address] [place] [address] Surgeon Orthopedic Surgery 03/27/17 Jacky Murry MD [address] [facility] [address] [facility] [address] [place] [address] Ophthalmology 03/27/17 Puma Mckenzie MD [address] [facility] [address] [facility] [address] [place] [address] Surgeon Orthopedic Surgery 07/11/19 Neha Jackson, PT Physical Therapist Physical Therapy 12/01/21 Stalin Arauz MD [address] [facility] [address] [place] [address] Consulting Physician Cardiology 12/08/22 Tiffany Rojas PA [address] [facility] [address] [place] [address] Gastroenterology 12/30/22 Klaus Deshpande MD [address] [facility] [address] [place] [address] Consulting Physician Neurology 06/13/23 documented as of this encounter
--- OUTSIDE RECORDS SUMMARY | 2024-06-18 18:51 | XMS_ITS | Encounter Summary ---
Author Organization [facility] Address [address] [place] [address] Care Team Providers Care Pig Machine Operator Helper Name Role Phone Pepper Morgan MD Primary Care Provider + [phone] Hank Garibay MD Unavailable [phone] Jacky Murry MD Unavailable [phone] Puma Mckenzie MD Unavailable [phone] Neha Jackson PT Unavailable Unavailable Stalin Arauz MD Unavailable [phone] Tiffany Rojas Unavailable [phone] Klaus Deshpande MD Unavailable [phone] Encounter Details Date Type Department Care Team (Late st Contact Info) Description 06/30/2023 8:50 AM AGRIBUSINESS PROFESSOR Lab [address] [phone] Chronic heart failure with preserved ejection fraction [...] often do you attend chur ch or yazidi services? Never 12/29/2022 Do you belong to any clubs o r organizations such as sikhism groups, unions, fraternal or athletic groups, or [...] slept in a usp (including now)? No 12/29/2022 Personal Safety Answer Date Recorded Getting School Help Needed Denies 05/29 Comments No Sex and Gender Information Value Date Recorded Sex Assigned at Not on file Legal Sex Female 4:33 AM AGRIBUSINESS PROFESSOR Gender Identity Not on file Sexual Orientation [...] Priority Date/Time Associated Diagnosis Comments EGFR Routine 06/30/2023 8:58 AM AGRIBUSINESS PROFESSOR Chronic heart failure with preserved ejection fraction (CMS/HCC) (HCC) BASIC METABOLIC PANEL Routine 06/30/2023 8:58 AM AGRIBUSINESS PROFESSOR Chronic heart failure with preserved ejection fraction (CMS/HCC) (HCC) documented in this encounter Results * eGFR (06/30/2023 8:58 AM AGRIBUSINESS PROFESSOR) eGFR 24 mL/min/1. 73 m2 [facility] ([place]) Comment: [...] interpretive data was last reviewed 2021. Blood 06/30/2023 8:58 AM AGRIBUSINESS PROFESSOR 06/30/2023 9:28 AM AGRIBUSINESS PROFESSOR Maude Harris SOLAR SYSTEMS DESIGNER LAB BLOOD ORDERABLES nal Result [facility] ([place]) 1 [facility] Department [place] [address] * (ABNORMAL) Basic metabolic panel (06/30/2023 8:58 AM AGRIBUSINESS PROFESSOR) Sodium 133(L) 135 - 145 mmol/L [facility] ([place]) Potassium, pl 2.7(C) 3.3 - 4.9 mmol/L [facility] ([place]) Comment:Critical Result call ed by [email or web address] at 2023-06-30 13:05:39. Result Read Back by Ivon Crook (RN) Chloride 88(L) 97 - 110 mmol/L [facility] ([place]) CO2 34(H) 22 - 32 mmol/L [facility] ([place]) Anion gap 12 2 - 15 mmol/L [facility] ([place]) BUN 88(H) 6 - 25 mg/dL [facility] ([place]) Creatinine 2.03(H) 0.60 - 1.10 [...] [facility] ([place]) Blood 06/30/2023 8:58 AM AGRIBUSINESS PROFESSOR 06/30/2023 9:28 AM AGRIBUSINESS PROFESSOR us Maude Harris SOLAR SYSTEMS DESIGNER LAB BLOOD ORDERABLES Fi nal Result [facility] ([place]) 1 [facility] Department [place] [address] documented in this encounter Visit Diagnoses Diagnosis Chronic heart failure with preserved ejection fraction (CMS/HCC) (HCC) documented in this encounter Care Teams Pig Machine Operator Helper Relationship Specialty Start Date End Date Pepper Morgan MD PCP - General 09/16/16 Hank Garibay MD [address] [facility] [address] [place] [address] Surgeon Orthopedic Surgery 03/27/17 Jacky Murry MD [address] [facility] [address] [place] [address] Ophthalmology 03/27/17 Puma Mckenzie MD [address] [place] [address] [address] [place] [address] Surgeon Orthopedic Surgery 07/11/19 Neha Jackson, PT Physical Therapist Physical Therapy 12/01/21 Stalin Arauz MD [address] [facility] [address] [place] [address] Consulting Physician Cardiology 12/08/22 Tiffany Rojas PA [address] [facility] [address] [place] [address] Gastroenterology 12/30/22 Klaus Deshpande MD [address] [facility] [address] [place] [address] Consulting Physician Neurology 06/13/23 documented as of this encounter
--- OUTSIDE RECORDS SUMMARY | 2024-06-18 18:51 | XMS_ITS | Encounter Summary ---
Author Organization [facility] Healthcare Address [address] [place] [address] Care Team Providers Care Fish Farmer Name Role Phone Pepper Morgan MD Primary Care Provider + [phone] Hank Garibay MD Unavailable [phone] Jacky Murry MD Unavailable [phone] Puma Mckenzie MD Unavailable [phone] Neha Jackson PT Unavailable Unavailable Stalin Arauz MD Unavailable [phone] Tiffany Rojas PA Unavailable [phone] Klaus Deshpande MD Unavailable [phone] Reason for Visit * Reason Comments Shortness of Breath * Auth/Cert (Routine) Specialty Diagnoses / Procedures Referred By Contac t Referred To Contact Diagnoses Shortness of breath Acute congestive heart failure, unspecified heart failure type (HCC) Procedures na Referral ID Status Reason Start Date Expiration Date Visits Re quested Visits Authorized [id number] 1 1 Encounter Details Date Type Department Care Team (Late st Contact Info) Description 06/24/2023 11:25 AM PSYCHOLOGIST CHIEF - 06/26/2023 3:28 PM PSYCHOLOGIST CHIEF Hospital Encounter [address] [address] Mich Sheppard MD [address] [place] [address] [address] [place] [address] [place] [id number] [facility] [address] [place], [place] [id number] [place] [id number] [facility] [address] [place], [place] [phone] Shortness of breath (Primary Dx); Acute congestive heart failure, unspecified heart failure type (HCC) Discharge Disposition: Discharge to home or [...] week 12/29/2022 How often do you attend [facility] or rastafarian services? Never 12/29/2022 Do you belong to [...] slept in a longterm (including now)? No 12/29/2022 Personal Safety Answer Date Recorded Getting School Help Needed Denies 05/29 Comments No Sex and Gender Information Value Date Recorded Sex Assigned at Not on file Legal Sex Female 4:33 AM PSYCHOLOGIST CHIEF Gender Identity Not on file Sexual Orientation Not on file Occupation Industry Job Start Date Job End Date retired Not on file Not on file Not on file documented as of this encounter Last Filed Vital Signs Vital Sign Reading Time Taken Comments Blood Pressure 116/71 06/26/2023 7:39 AM PSYCHOLOGIST CHIEF Pulse 89 06/26/2023 7:39 AM PSYCHOLOGIST CHIEF Temperature 36.3 ??C (97.4 ??F) 06/26/2023 7:39 AM CS T Respiratory Rate 18 06/26/2023 7:39 AM PSYCHOLOGIST CHIEF Oxygen Saturation 100% 06/26/2023 7:39 AM PSYCHOLOGIST CHIEF Inhaled Oxygen Concentration - - Weight 86.6 kg (191 lb) 06/24/2023 11:24 AM PSYCHOLOGIST CHIEF Height - - Body Mass Index 37.3 06/15/2023 2:10 AM PSYCHOLOGIST CHIEF documented in this encounter Discharge Summaries * Jahaira Dc MD - 06/26/2023 9:48 AM CST Inpatient Discharge Summary BRIEF OVERVIEW Admitting Provider: Moises Guajardo MD Discharge Provider: Jahaira Dc MD Primary Care Physician at Discharge: Pepper Morgan MD [phone] Admission Date: 06/24/2023 Discharge Date: 06/26/2023 Primary Discharge Diagnoses: Shortness of breath on admission, asthma exacerbation related. Asthma with acute exacerbation. Cough. Diastolic dysfunction, per 06/15/2023 2D echo, not in exacerbation. Trivial mitral regurgitation, mild [...] device. Restless leg syndrome. Essential tremor. Obesity. Slight hyponatremia. Hypokalemia, resolved. CKD, stage III. Elevated lactate, resolved. Troponin trend of 32, 23, with delta of -9, nonspecific. Anemia. Microcytosis. DETAILS OF HOSPITAL STAY Hospital Course: Patient was admitted on 06/24/2023 for shortness of breath due to asthma exacerbation. Admission chest x-ray showed no acute pulmonary findings. She was on IV Solu-Medrol, duo nebs. For cough, she was on Tessalon Perles as needed, Robitussin as needed. 06/15/2023 2D echo showed diastolic dysfunction,patient was not in exacerbation, was on Jardiance and on IV Lasix, on 06/25/2023 IV lasix was changedto oral, patient was also on metolazone. For hypertension, she was on Coreg, IV lasix, metolazone; on 06/25/2023 IV Lasix was changed to oral; BP was controlled. Regarding atrial fibrillation, rate wascontrolled, she was on Xarelto. For GERD, she was on PPI. For PVD, she was on aspirin. For restlessleg syndrome, she was on Mirapex. For essential tremor, she was on propranolol as needed. Lab work showed hypokalemia, elevated lactate that resolved, slight hyponatremia of 133, CKD with creatinine of 1.53 with GFR of 33, anemia with hemoglobin of 9.9. Troponin trend was 32, 23, with delta of -9, was nonspecific. Regarding microcytosis, on 06/14/2023 iron panel showed low iron, elevated TIBC, low transferrin saturation. Overall, patient continued to do well. Was seen, examined and discharged to home on 06/26/2023. Test Results Pending at Discharge: Pending Labs Order Current Status Blood culture Blood Antecubital, right Preliminary result Blood culture Blood Forearm, right Preliminary result Operative Procedures Performed: None. Diagnostic Studies: 06/24/2023 chest x-ray showing no acute cardiopulmonary findings. Discharge Details Physical Exam at Discharge: Per progress note. Discharge Condition: Resolved dyspnea. No chest pain. Afebrile. Stable. Vitals: 06/26/23 0051 06/26/23 0400 06/26/23 0412 06/26/23 0739 BP: 121/68 113/70 116/71 BP Location: Right arm Right arm Patient Position: Sitting Pulse: 90 79 88 89 Resp: 18 Temp: 36.3 ??C (97.3 ??F) 36.2 ??C (97.2 ??F) 36.3 ??C (97.4 ??F) TempSrc: Oral Oral SpO2: 99% 99% 100% Weight: Discharge Disposition: Home. Code Status at Discharge: [...] headache, visual disturbances, weakness and speech changes Special Instructions 1. Check blood pressures at home daily and bring log to PCP and to the Solid Fiber Paster Operator's appointment. 2. BMP check with Cardiology clinic later this week or early next week. Discharge Medications: CONTINUE these medications which have [...] (two) times a day with meals Qty: 60 tablet, Refills: 0 cetirizine (ZyrTEC) 10 mg tablet Take 1 [...] not swallow. Qty: 1 each, Refills: 4 gabapentin (NEURONTIN) 300 mg capsule Take 1 capsule (300 mg total) by mouth nightly Comments: Dosage increase. Associated Diagnoses: Restless legs syndrome metOLazone (ZAROXOLYN) 2.5 mg tablet Take 1 tablet (2.5 mg total) by mouth every other day pantoprazole DR (PROTONIX) 40 mg EC tablet Take 1 tablet (40 mg total) by mouth daily Qty: 30 tablet, Refills: 1 potassium chloride ER 20 mEq CR tablet [...] needed. She is getting this from her lidar scientist's office polyethylene glycol (MIRALAX) 17 gram packet Take 1 packet (17 g total) by mouth daily as needed for constipation START taking these medications Details predniSONE (DELTASONE) 20 mg tablet Take 1 tablet (20 mg) by mouth 2 (two) times a day For 3 days, then 20mg PO daily for 3 days, then 10mg PO daily for 3 days, then stop. Qty: 11 tablet, Refills: 0 CONTINUE these medications which have CHANGED Details furosemide (LASIX) 40 mg tablet Take 1 tablet (40 mg total) by mouth 2 (two) times a day Qty: 60 tablet, Refills: 11 Outpatient Follow-Up: Future Appointments Date Time Provider Department Center 07/12/2023 11:15 AM Jadyn Hobson PA [facility] OS 130B Specialty 07/13/2023 9:20 AM Pepper Morgan MD [facility] IM PSA 07/20/2023 9:00 AM USRM2 [facility] Main 08/21/2023 11:15 AM Stalin Arauz MD [facility] CAR 122 PSA 08/31/2023 9:00 AM Klaus Deshpande MD [facility] Specialty 09/15/2023 1:30 PM To Mauricio MD [facility] 10/23/2023 10:30 AM USRM1 [facility] Main 12/15/2023 9:20 AM Lyndsay Joshi MD [facility] 1. Pepper Morgan MD [address] [place] [address] in 2 to 3 weeks, PCP Jahaira Dc MD Discharge Time: 36 minutes. HOLOGIST CHIEF documented in this encounter Medications at Time [...] day with meals 60 tablet 06/17/2023 4 empagliflozin (JARDIANCE) 10 mg tablet Take [...] a day 60 tablet 11 06/26/2023 4 gabapentin (NEURONTIN) 300 mg capsuleIndication s:Restless [...] total) by mouth daily 30 tablet 1 06/20/2023 4 polyethylene glycol (MIRALAX) 17 gram packetIndications [...] a day 60 tablet 3 05/25/2023 4 predniSONE (DELTASONE) 20 mg tablet Take 1 tablet (20 mg) by mouth 2 (two) times a day For 3 days, then 20mg PO daily for 3 days, then 10mg PO daily for 3 days, then stop. 11 tablet 06/26/2023 4 propranoloL (INDERAL) 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 :Hereditary [...] Filled Start Date End Date predniSONE (DELTASONE) 20 mg tablet Take 1 tablet (20 mg) by mouth 2 (two) times a day For 3 days, then 20mg PO daily for 3 days, then 10mg PO daily for 3 days, then stop. 11 tablet 06/26/2023 07/13/2023 furosemide (LASIX) 40 mg tablet Take 1 tablet (40 mg total) by mouth 2 (two) times a day 60 tablet 11 06/26/2023 10/31/2023 documented in this encounter Discharge Disposition Disposition Code Departure Means Destination Comment s Discharge to home or self care documented in this encounter Progress Notes * Hank Carlisle, OT - 06/26/2023 10:53 AM CST Occupational Therapy NOTE / SESSION TYPE: Initial Evaluation Patient Name: Tess Benedict Date of : 1935 Age / Sex: 87 y.o. / female Room: [place] [address] Admit Date: 06/24/2023 Date of Service: 06/26/23 Time In: 1056 Time Out: 1111 Primary Diagnosis: Acute congestive heart failure, unspecified heart failure type (HCC) HPI: Tess Benedict is a 87 y.o. female who presents with complaints of shortness of breath overthe past 3 nights which has progressively become worse. She reports a productive cough of yellow sputum, weight gain, shortness of breath, wheezing constipation. Notable History: See Below Past Medical History: Diagnosis Date Allergic rhinitis [...] HIP ARTHROPLASTY Left 11/01/2021 Dr. Mckenzie, [facility]. Precautions (Including Weight-Bearing): Fall risk Caregiver Present for Session (Yes or No): No SUBJECTIVE: Patient Comment: Pain Assessment: Pre-therapy pain level: 0 / 10 Pain location: No pain - Location N/A Pain intervention(s): No pain - Intervention N/A Post-therapy pain level: 0 / 10 Pain scale used: 0-10 SCALE Prior Living Environment and Level of Function: Lives with: alone Receives assistance from / other social supports available: Daughter and grandchildren Living environment (Type of residence / Entrance accessibility): 1-story house/ trailer Condo 2 steps to enter in front no handrails 4 steps to back door handrails on both sides. 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 Social roles / Hobbies: play cards, exercise Patient / Family goal(s): walk longer distances Fall(s) within the last 6 months: Yes 3 without injury OBJECTIVE: Appearance: Presentation upon OT arrival: Patient Sitting in bedside chair Presentation upon OT departure: Patient Sitting in bedside chair Bed / chair alarm in place and activated upon OT departure: N/A Call light within arms reach of patient at end of session: Yes Completed patient handoff and notified FAMILY LITERACY COORDINATOR / RN, name: Barbie, of patient's location and functionalstatus upon completion of session Vital Signs: Pt has no complaints of SOB, lightheadedness, or dizziness Cognitive / Perceptual Assessment: A & O x 4 Pt able to make needs and wants known without difficulty UE ROM / Strength / Coordination: (A)ROM - Right: WFL Strength - Right: 4/5 except shoulder flex/abd not assessed due to pain with resistance. (A)ROM - Left: WFL (pt stated SHONDA has nerve damage.) Strength - Left: 3/5 Hand Dominance: Right Supervisor Forming Department Strength (Right) good Supervisor Forming Department Strength (Left): Fair Right Serial Opposition: Decreased rhythm and Decreased accuracy Left Serial Opposition: Decreased rate, Decreased rhythm, and Decreased accuracy Balance: Static sitting balance: Good unsupported Dynamic sitting balance: Good unsupported Static standing balance: Good unsupported Dynamic standing balance: Good unsupported Mobility / Transfers: Bed mobility (Components & Assistance): Not assessed due to pt seated in bedside chair. Transfer(s): bedside chair A to bedside chair B supervision no device used. Activities of Daily Living / Living Skills: Pt refused due to already being dressed and prepared for discharge from hospital admission. Pt. Stated that she is independent with all her ADLs. ASSESSMENT: Rehab Potential (Prognosis): good Problem List: Patient has impairments including: Decreased UE strength, Decreased coordination, Decreased endurance, and Long-standing deficits. Barriers to Discharge: Pain, Decreased endurance, Upper extremity weakness, and Long standing deficits PLAN: OT Discharge Recommendations this date: OT RECOMMENDATIONS: OT Recommendation: Home with intermittent assist, Home Health OT Patient at risk for: Patient at high risk for: Falls, Readmission Justification of discharge recommendations flow sheet completed: Yes Frequency of therapy:OT Frequency during current admission: 2-3x/wk Intervention / Education needs: Compensatory ADL strategies, Adaptive equipment education, Functional transfer training, and UE home exercise program education Education provided: Patient and family has been educated on Role of OT, OT plan of care, ADL training, Compensatory ADL strategies, Functional transfer training, Balance training, and UE home exercise program. Individual(s) verbalized understanding. Short Term Goals / Care Plan: No care plan formulated due to pt has discharged. If this is the last note, consider this the discharge summary Hank Carlisle OT 06/26/23 HOLOGIST CHIEF * Jahaira Dc MD - 06/26/2023 8:56 AM CST Daily Progress Note CHIEF COMPLAINT: Shortness of breath. SUBJECTIVE: Interval History: Sitting in bed, appears in no acute distress. Says that shortness of breath has resolved. No other complaints at the present time. OBJECTIVE: Vitals: 24hr Min/Max: Temp Min: 36.2 ??C (97.2 ??F) Max: 36.6 ??C (97.8 ??F) Pulse Min: 70 Max: 98 BP Min: 103/61 Max: 121/68 Resp Min: 18 Max: 18 SpO2 Min: 94 % Max: 100 % Most Recent : Vitals: 06/26/23 0007 06/26/23 0051 06/26/23 0400 06/26/23 0412 BP: 121/68 113/70 BP Location: Right arm Patient Position: Pulse: 90 79 88 Resp: Temp: 36.3 ??C (97.3 ??F) 36.2 ??C (97.2 ??F) TempSrc: Oral SpO2: 94% 99% 99% Weight: I/O last 2 completed shifts: In: 518 [P.O.:508; I.V.:10] Out: 1675 [Urine:1675] I/O this shift: In: 100 [P.O.:100] Out: 600 [Urine:600] Current Facility-Administered Medications Medication Dose Route Frequency Provider Last Rate Last Admin acetaminophen (TYLENOL) tablet 1,000 mg 1,000 mg oral Q6H PRN Ilya Baltazar NP albuterol HFA (PROVENTIL HFA,VENTOLIN HFA,PROAIR HFA) 90 mcg/actuation inhaler 2 puff 2 puff inhalation Q6H PRN (RT) Florinda Haile NP aspirin enteric coated tablet 81 mg 81 mg oral Daily Florinda Haile NP 81 mg at 06/25/23 0941 benzonatate (TESSALON) capsule 200 mg 200 mg oral TID PRN Jahaira Dc MD carvediloL (COREG) tablet 6.25 mg 6.25 mg oral BID with meals (bkfst, dinner) Florinda Haile NP6.25 mg at 06/25/23 1806 cetirizine (ZyrTEC) tablet 5 mg 5 mg oral Nightly Florinda Haile NP 5 mg at 06/25/23 2144 cholecalciferol (VITAMIN D-3) tablet 2,000 Units 2,000 Units oral Daily Florinda Haile NP 2,000Units at 06/25/23 0941 dextromethorphan-guaiFENesin (ROBITUSSIN-DM) 2-20 mg/mL syrup 10 mL 10 mL oral QID PRN Dolly Baltazar NP 10 mL at 06/25/23 0940 empagliflozin (JARDIANCE) tablet 10 mg 10 mg oral Daily Florinda Haile NP fluticasone furoate-vilanteroL (BREO ELLIPTA) 100-25 mcg/dose inhaler 1 puff 1 puff inhalation Daily (RT) Florinda Haile NP 1 puff at 06/25/23 1020 furosemide (LASIX) tablet 40 mg 40 mg oral BID DIURETIC Jahaira Dc MD 40 mg at 06/25/23 1614 gabapentin (NEURONTIN) capsule 300 mg 300 mg oral Nightly Florinda Haile NP 300 mg at 06/25/23 214 guaiFENesin (ROBITUSSIN) 20 mg/mL oral liquid 200 mg 200 mg oral Q4H PRN Jahaira Dc MD 200 mg at 06/25/23 1621 ipratropium-albuteroL (DUO-NEB) 0.5-2.5 mg/3 mL nebulizer solution 3 mL 3 mL nebulization Q6H [place] (RT) Florinda Haile NP 3 mL at 06/26/23 0007 methylPREDNISolone sodium succinate (SOLU-medrol) preservative free injection 40 mg 40 mg intravenous Q12H GLORIA Jahaira Dc MD 40 mg at 06/25/23 214 metOLazone (ZAROXOLYN) tablet 2.5 mg 2.5 mg oral Every other day Florinda Haile NP 2.5 mg at 06/25/[address] (PROTONIX) extended release tablet 40 mg 40 mg oral Daily Florinda Haile NP 40 mg at 06/25/23 0941 polyethylene glycol (MIRALAX) packet 17 g 17 g oral Daily PRN Florinda Haile NP potassium chloride ER (KLOR-CON) extended release tablet 20 mEq 20 mEq oral Daily Florinda Haile NP 20 mEq at 06/25/23 0941 pramipexole (MIRAPEX) tablet 0.5 mg 0.5 mg oral BID Jahaira Dc MD 0.5 mg at 06/25/23 2144 propranoloL (INDERAL) tablet 20 mg 20 mg oral BID PRN Florinda Haile NP ramelteon (ROZEREM) tablet 8 mg 8 mg oral Nightly PRN Ilya Baltazar NP 8 mg at 06/24/23 2337 rivaroxaban (XARELTO) tablet 15 mg 15 mg oral Daily with dinner Florinda Haile NP 15 mg at 06/25/23 1806 Physical Exam: General Appearance: Alert, cooperative, no [...] mood ASSESSMENT/PLAN: Shortness of breath on admission, asthma exacerbation related. Admission chest x-ray showed no acute pulmonary findings. Asthma with acute exacerbation. On IV Solu-Medrol, duo nebs. Cough, on Tessalon Perles as needed, Robitussin as needed. Diastolic dysfunction, per 06/15/2023 2D echo, not in exacerbation. On Jardiance. Was on IV Lasix, that yesterday was changed to oral, also on metolazone. Trivial mitral regurgitation, mild aortic stenosis, per 06/15/2023 2D echo. Hypertension. Blood pressure controlled. Was on Coreg, IV lasix, metolazone; on 06/25/2023 changed IVLasix to oral. Atrial fibrillation, rate controlled. On Xarelto. GERD. On PPI. PVD. AIF on 02/18/2022 showed peripheral vascular [...] Essential tremor. On propranolol as needed. Obesity. Slight hyponatremia of 133, follow. Hypokalemia, resolved. CKD with creatinine of 1.53 with GFR of 33, follow. Elevated lactate, resolved. Troponin trend of 32, 23, with delta of -9, nonspecific. Anemia with hemoglobin of 9.9, follow. Microcytosis. On 06/14/2023 iron panel showed low iron, elevated TIBC, low transferrin saturation. Prophylaxis. PPI, Xarelto. Disposition. Discharge home later today. HOLOGIST CHIEF HOLOGIST CHIEF HOLOGIST CHIEF * Jahaira Dc MD - 06/25/2023 11:53 AM CST Daily Progress Note CHIEF COMPLAINT: Shortness of breath. SUBJECTIVE: Interval History: Sitting in bed, appears in no acute distress. Reports coughing. Thinks that shortness of breath is improved. No other complaints at the present time. OBJECTIVE: Vitals: 24hr Min/Max: Temp Min: 36.4 ??C (97.5 ??F) Max: 36.6 ??C (97.9 ??F) Pulse Min: 58 Max: 95 BP Min: 98/57 Max: 124/66 Resp Min: 18 Max: 26 SpO2 Min: 83 % Max: 100 % Most Recent : Vitals: 06/25/23 0400 06/25/23 0420 06/25/23 0847 06/25/23 1020 BP: 98/57 103/61 BP Location: Right arm Right arm Patient Position: Lying Sitting Pulse: 58 76 81 Resp: 18 18 Temp: 36.4 ??C (97.6 ??F) 36.4 ??C (97.5 ??F) TempSrc: Oral Oral SpO2: 95% 97% 97% Weight: I/O last 2 completed shifts: In: 110 [P.O.:100; I.V.:10] Out: 1600 [Urine:1600] I/O this shift: In: 118 [P.O.:118] Out: 400 [Urine:400] Current Facility-Administered Medications Medication Dose Route Frequency Provider Last Rate Last Admin acetaminophen (TYLENOL) tablet 1,000 mg 1,000 mg oral Q6H PRN Ilya Baltazar NP albuterol HFA (PROVENTIL HFA,VENTOLIN HFA,PROAIR HFA) 90 mcg/actuation inhaler 2 puff 2 puff inhalation Q6H PRN (RT) Florinda Haile NP aspirin enteric coated tablet 81 mg 81 mg oral Daily Florinda Haile NP 81 mg at 06/25/23 0941 carvediloL (COREG) tablet 6.25 mg 6.25 mg oral BID with meals (bkfst, dinner) Florinda Haile NP6.25 mg at 06/24/23 180 cetirizine (ZyrTEC) tablet 5 mg 5 mg oral Nightly Florinda Haile NP 5 mg at 06/24/23 2044 cholecalciferol (VITAMIN D-3) tablet 2,000 Units 2,000 Units oral Daily Florinda Haile NP 2,000Units at 06/25/23 0941 dextromethorphan-guaiFENesin (ROBITUSSIN-DM) 2-20 mg/mL syrup 10 mL 10 mL oral QID PRN Dolly Baltazar NP 10 mL at 06/25/23 0940 empagliflozin (JARDIANCE) tablet 10 mg 10 mg oral Daily Florinda Haile NP fluticasone furoate-vilanteroL (BREO ELLIPTA) 100-25 mcg/dose inhaler 1 puff 1 puff inhalation Daily (RT) Florinda Haile NP 1 puff at 06/25/23 1020 furosemide (LASIX) 10 mg/mL injection 40 mg 40 mg intravenous Q12H GLORIA Florinda Haile NP 40 mg at 06/24/23 204 gabapentin (NEURONTIN) capsule 300 mg 300 mg oral Nightly Florinda Haile NP 300 mg at 06/24/232043 ipratropium-albuteroL (DUO-NEB) 0.5-2.5 mg/3 mL nebulizer solution 3 mL 3 mL nebulization Q6H [place] (RT) Florinda Haile NP 3 mL at 06/25/23 1020 metOLazone (ZAROXOLYN) tablet 2.5 mg 2.5 mg oral Every other day Florinda Haile NP 2.5 mg at 06/25/[address] (PROTONIX) extended release tablet 40 mg 40 mg oral Daily Florinda Haile NP 40 mg at 06/25/23 0941 polyethylene glycol (MIRALAX) packet 17 g 17 g oral Daily PRN Florinda Haile NP potassium chloride ER (KLOR-CON) extended release tablet 20 mEq 20 mEq oral Daily Florinda Haile NP 20 mEq at 06/25/23 0941 potassium chloride ER (KLOR-CON) extended release tablet 40 mEq 40 mEq oral Once Florinda Haile NP pramipexole (MIRAPEX) tablet 0.5 mg 0.5 mg oral BID Florinda Haile NP 0.5 mg at 06/24/232046 propranoloL (INDERAL) tablet 20 mg 20 mg oral BID PRN Florinda Haile NP ramelteon (ROZEREM) tablet 8 mg 8 mg oral Nightly PRN Ilya Baltazar NP 8 mg at 06/24/23 2337 rivaroxaban (XARELTO) tablet 15 mg 15 mg oral Daily with dinner Mic, Florinda, BASKETBALL REFEREE Physical Exam: General Appearance: Alert, cooperative, no distress, appears stated age, well developed, well nourished, obese Head: Normocephalic, without obvious abnormality, atraumatic Eyes: Conjunctiva/corneas clear, EOM's intact, both eyes, anicteric Ears: Normal external ear canals, both ears Nose: Nares normal, septum midline, mucosa normal, no drainage Throat: Lips, mucosa, and tongue normal; mucous membranes moist Neck: Supple Lungs: Bilateral expiratory wheezes Cardiovascular: Ir ir Abdomen: Soft, non-tender, bowel sounds decr, non-distended, obese Extremities: Extremities normal, atraumatic, no cyanosis or edema Skin: Skin color, texture, turgor normal, no rashes Psychosocial: Normal affect and mood ASSESSMENT/PLAN: Shortness of breath on admission, asthma exacerbation related. Admission chest x-ray showed no acute pulmonary findings. Asthma with acute exacerbation. Will start IV Solu-Medrol, duo nebs. Cough, on Tessalon Perles as needed, Robitussin as needed. Diastolic dysfunction, per 06/15/2023 2D echo, not in exacerbation. On Jardiance. On IV Lasix, willchange to oral, also on metolazone. Trivial mitral regurgitation, mild aortic stenosis, per 06/15/2023 2D echo. Hypertension. Blood pressure controlled. On Coreg, IV lasix, metolazone; will change IV lasix to PO. Atrial fibrillation, rate controlled. On Xarelto. GERD. On PPI. PVD. AIF on 02/18/2022 showed peripheral vascular [...] Essential tremor. On propranolol as needed. Obesity. Slight hyponatremia of 134 yesterday, follow. Hypokalemia, follow and replace. CKD with creatinine of 1.29 with GFR of 41 yesterday, follow. Elevated lactate, resolved. Troponin trend of 32, 23, with delta of -9, nonspecific. Anemia with hemoglobin of 8.9 yesterday, follow. Microcytosis. On 06/14/2023 iron panel showed low iron, elevated TIBC, low transferrin saturation. Prophylaxis. PPI, Xarelto. HOLOGIST CHIEF HOLOGIST CHIEF HOLOGIST CHIEF HOLOGIST CHIEF * Efren Ramos, [facility] - 06/24/2023 4:25 PM CST Pharmacy Medication Reconciliation Note Patient Tess Benedict is a 87 y.o. female who presents to [facility] ED-[id number] for admission. The prior to admission home medication list was reviewed by pharmacy. Current Facility-Administered Medications: albuterol HFA (PROVENTIL HFA,VENTOLIN HFA,PROAIR HFA) 90 mcg/actuation inhaler 2 puff, 2 puff, inhalation, Q6H PRN, Florinda Haile NP aspirin enteric coated tablet 81 mg, 81 mg, oral, Daily, Florinda Haile NP carvediloL (COREG) tablet 6.25 mg, 6.25 mg, oral, BID with meals (bkfst, dinner), Florinda Haile NP cetirizine (ZyrTEC) tablet 5 mg, 5 mg, oral, Nightly, Florinda Haile NP cholecalciferol (VITAMIN D-3) tablet 2,000 Units, 2,000 Units, oral, Daily, Florinda Haile NP empagliflozin (JARDIANCE) tablet 10 mg, 10 mg, oral, Daily, Florinda Haile NP fluticasone furoate-vilanteroL (BREO ELLIPTA) 100-25 mcg/dose inhaler 1 puff, 1 puff, inhalation, Daily (RT), Florinda Haile NP furosemide (LASIX) 10 mg/mL injection 40 mg, 40 mg, intravenous, Q12H GLORIA, Florinda Haile NP gabapentin (NEURONTIN) capsule 300 mg, 300 mg, oral, Nightly, Florinda Haile NP ipratropium-albuteroL (DUO-NEB) 0.5-2.5 mg/3 mL nebulizer solution 3 mL, 3 mL, nebulization, Q6H While awake (RT), Florinda Haile NP, 3 mL at 06/24/23 1616 metOLazone (ZAROXOLYN) tablet 2.5 mg, 2.5 mg, oral, Every other day, Florinda Haile NP pantoprazole DR (PROTONIX) extended release tablet 40 mg, 40 mg, oral, Daily, Florinda Haile NP polyethylene glycol (MIRALAX) packet 17 g, 17 g, oral, Daily PRN, Florinda Haile NP potassium chloride ER (KLOR-CON) extended release tablet 20 mEq, 20 mEq, oral, Daily, Florinda Haile NP pramipexole (MIRAPEX) tablet 0.5 mg, 0.5 mg, oral, BID, Florinda Haile NP propranoloL (INDERAL) tablet 20 mg, 20 mg, oral, BID PRN, Florinda Haile NP rivaroxaban (XARELTO) tablet 20 mg, 20 mg, oral, Daily, Florinda Haile NP Current [...] (two) times a day with meals, Disp: 60 tablet, Rfl: 0 cetirizine (ZyrTEC) 10 mg tablet, Take 1 tablet (10 mg total) by mouth nightly, Disp: 90 tablet, Rfl: 3 cholecalciferol (VITAMIN D-3) 2000 unit tablet, Take 1 tablet (2,000 Units total) by mouth daily, Disp: , Rfl: empagliflozin (JARDIANCE) 10 mg tablet, Take 1 tablet (10 mg total) by mouth daily, Disp: 30 tablet, Rfl: 11 fluticasone propion-salmeteroL (ADVAIR DISKUS) 100-50 mcg/dose diskus inhaler, Inhale 1 puff 2 (two) times a day Rinse mouth with water after use. Do not swallow., Disp: 1 each, Rfl: 4 furosemide (LASIX) 40 mg tablet, Take 1 tablet (40 mg total) by mouth 2 (two) times a day, Disp: 60tablet, Rfl: 11 gabapentin (NEURONTIN) 300 mg capsule, Take 1 capsule (300 mg total) by mouth nightly, Disp: , Rfl: metOLazone (ZAROXOLYN) 2.5 mg tablet, Take 1 tablet (2.5 mg total) by mouth every other day, Disp: , Rfl: pantoprazole DR (PROTONIX) 40 mg EC tablet, Take 1 tablet (40 mg total) by mouth daily, Disp: 30 tablet, Rfl: 1 potassium chloride ER 20 mEq CR tablet, Take 1 tablet (20 mEq total) by mouth daily, Disp: , Rfl: pramipexole (MIRAPEX) 0.5 mg tablet, Take 1 [...] with lunch), Disp: 30 tablet, Rfl: 11 polyethylene glycol (MIRALAX) 17 gram packet, Take 1 packet (17 g total) by mouth daily as needed for constipation, Disp: , Rfl: The patient???s home medication list has been reconciled and updated as follows: - Orders from medication that were removed because the patient is no longer taking: Clonazepam, cyclobenzaprine, felodipine, - Orders that the patient is taking at home were added to the home medication list: none - Orders on the medication list that the patient is taking differently (doses/frequency/formulation): none - Additional comments/recommendations: Per patient and daughter at bedside who were familiar with patient's medications. Felodipine recently stopped d/t low BP. Pt unsure if she should still be taking the propranolol. Conflicting directions between what lidar scientist said and her previous AVS Sources of information for this medication reconciliation include: family member, patient, and prescription fill history Efren Ramos RPh 06/24/2023 4:19 PM HOLOGIST CHIEF documented in this encounter H&P Notes * Florinda Haile NP - 06/24/2023 2:50 PM CST History and Physical CHIEF COMPLAINT Chief Complaint Patient presents with Shortness of Breath HPI Patient is a 87 y.o. female with past medical history of asthma, allergic rhinitis, atrial fibrillation, CHF, DVT, and basal cell carcinoma who presents to the emergency room with complaints of shortness of breath over the past 3 nights which has progressively become worse. She reports a productivecough of yellow sputum, weight gain, shortness of breath, wheezing constipation. She denied chest pain, fever, chills, headache, dizziness, dysuria melena. Due to the above she presents to the emergency room for evaluation. On arrival to the emergency room T-max 97.2??, pulse 74, respirations 20, blood pressure 88/49 O2 saturation 97%. Blood cultures obtained. Respiratory pathogen panel negative. BNP 6550. CXR showing no acute cardiopulmonary findings. Lactic acid 2.2. Troponin 32. EKG showing atrial fibrillation. I agree with admitting this patient to the hospital for further evaluation, management and care. Of note, this patient was recently admitted to this hospital 06/14/2023- 06/17/2023 due to shortnessof breath. She reported shortness breath with walking around her house. She also reported intermittent left-sided chest pain that radiated to her neck. She was admitted with acute on chronic diastolic heart failure. BNP was 6669. Echocardiogram showed normal LV size. Mild concentric LVH. Diastolic dysfunction is present. EF measured at 62%. Placed in received IV Lasix which was transitioned to oral. She also received Zaroxolyn, Farxiga and Coreg. Cardiology was consulted. PAST MEDICAL HISTORY Past Medical History: Diagnosis Date Asthma Arthritis of ankle Allergic rhinitis Atrial fibrillation Back pain Basal cell carcinoma , hypertension and obesity CHF DVT, left arm elbow Essential tremor Fibrocystic breast GERD Heel spur Hypertension History of strangulated hernia History rheumatic fever Lymphedema Menopause Motion sickness Malignant melanoma s/p resection Obese Osteoarthritis Restless leg syndrome Right carpal tunnel syndrome Tobacco use, quit 01/04/1990 PAST SURGICAL HISTORY Melanoma removal in 1975, per prior notes. Gastroplasty in 1984, per prior notes. Cholecystectomy and hernia repair in 1994, per prior notes. Arthroscopic knee surgery in 2003, per prior notes. 05/20/2009, Phacoemulsification of right eye with implantation of posterior chamber lens, MONICA model #EH8775, +23.5 diopter, serial #[id number]. 03/21/2012, Phacoemulsification of left eye with implantation of posterior chamber lens, West Model [id number], +24 diopter, serial number [id number]. 12/25/2013, Excision of pigmented lesion, left lower [...] 2 (two) times a day with meals 06/17/23 06/16/24 Sharee Galan NP cetirizine (ZyrTEC) 10 mg tablet Take 1 tablet (10 mg total) by mouth nightly 12/08/22 Pepper Morgan MD cholecalciferol (VITAMIN D-3) 2000 unit tablet Take 1 tablet (2,000 Units total) by mouth daily ProviderLatasha MD clonazePAM (KlonoPIN) 0.5 mg tablet Take 1 tablet (0.5 mg total) by mouth nightly 05/30/23 11/26/23 Pepper Morgan MD empagliflozin (JARDIANCE) 10 mg tablet Take 1 tablet (10 mg total) by mouth daily 05/29/23 Stalin Arauz MD felodipine (PLENDIL) 5 mg 24 hr tablet Take 1 tablet (5 mg total) by mouth daily 12/08/22 Pepper Morgan MD fluticasone propion-salmeteroL (ADVAIR DISKUS) 100-50 mcg/dose diskus inhaler Inhale 1 puff 2 (two)times a day Rinse mouth with water after use. Do not swallow. 03/09/23 Sabine Dasilva NP furosemide (LASIX) 40 mg tablet Take 1 tablet (40 mg total) by mouth 2 (two) times a day 06/21/23 Stalin Arauz MD gabapentin (NEURONTIN) 300 mg capsule Take 1 capsule (300 mg total) by mouth nightly 06/17/23 Sharee Galan NP metOLazone (ZAROXOLYN) 2.5 mg tablet Take 1 tablet (2.5 mg total) by mouth every other day ProviderLatasha MD pantoprazole DR (PROTONIX) 40 mg EC tablet Take 1 tablet (40 mg total) by mouth daily 06/20/23 06/19/24Pepper Morgan MD polyethylene glycol (MIRALAX) 17 gram [...] a day as needed (Tremor) 12/08/22 Pepper Morgan MD rivaroxaban (XARELTO) 20 mg tablet Take 1 tablet (20 mg total) by mouth daily 12/08/22 Pepper Morgan MD cyclobenzaprine (FLEXERIL) 10 mg tablet Take 1 tablet (10 mg total) by mouth nightly as needed for muscle spasms 11/16/21 12/06/21 Puma Johnson MD I have utilized all available immediate resources to obtain, update, or review the patient's current medications (including all prescriptions, uptn-ggf-cgglfvd products, herbals, cannabis/cannabidiolproducts, and vitamin/mineral/dietary (nutritional) supplements). REVIEW OF SYSTEMS 14 point review of systems is negative except for what I have already mentioned above in the history of present illness. OBJECTIVE Temp Av.2 ??C (97.2 ??F) Min: 36.2 ??C (97.2 ??F) Max: 36.2 ??C (97.2 ??F) BP Min: 88/49 Max: 112/61 Pulse Av.5 Min: 63 Max: 76 Resp Av.7 Min: 19 Max: 26 SpO2 Av.2 % Min: 96 % Max: 100 % No intake/output data recorded. Weight: Wt Readings from Last 1 Encounters: 06/24/23 86.6 kg (191 lb) PHYSICAL EXAM General: This is a [...] in all four quadrants. Extremities: No cyanosis, clubbing or edema. Neuro: Patient is awake and alert x 3. Speech is clear and coherent. Psychiatric: Normal mood and affect. Behavior is normal. Skin: Warm and dry. No rashes or lesions. LAB/RADIOLOGY/DIAGNOSTIC: Recent Labs Lab Units 06/24/23 1142 WBC K/cumm 9.4 HEMOGLOBIN g/dL 8.9* HEMATOCRIT % 30.4* PLATELETS K/cumm 347 Recent Labs Lab Units 06/24/23 1142 SODIUM mmol/L 134* POTASSIUM PLASMA mmol/L 3.2* CHLORIDE mmol/L 94* CO2 mmol/L 28 ANIONGAP mmol/L 12 GLUCOSE mg/dL 136 BUN SERUM mg/dL 34* CREATININE mg/dL 1.29* CALCIUM mg/dL 9.0 ALBUMIN g/dL 3.5 ALK PHOS Units/L 121 ALT Units/L 12 AST Units/L 17 BILIRUBIN TOTAL mg/dL 0.3 Recent Labs Lab Units 06/24/23 1142 INR 1.44* Recent Labs Lab Units 06/24/23 1142 WBC K/cumm 9.4 HEMOGLOBIN g/dL 8.9* HEMATOCRIT % 30.4* PLATELETS K/cumm 347 Recent Labs Lab Units 06/24/23 1142 PROTIME (PT) sec 16.4* Recent Labs Lab Units 06/24/23 1142 INR 1.44* XR Chest 1 Vw Portable Result Date: 06/24/2023 Narrative: EXAMINATION: XR CHEST 1 VIEW DATE: 06/24/2023 11:55 AM INDICATION: Shortness of breath. COMPARISON: None. FINDINGS: No pneumothorax, pleural effusion, or pulmonary consolidation is demonstrated. The cardiomediastinal silhouette is within normal limits. No acute osseous abnormality demonstrated. Impression: No acute cardiopulmonary findings. Electronically signed by: Lincoln Lucia IIOAnjali Transthoracic Echo (TTE) Complete W Doppler/CF Result Date: 06/15/2023 Narrative: [place] [address] Echocardiogram Report Patient Name: TESS BENEDICT I : 1935 Study Date: 06/15/2023 12:13:47 PM Gender: F Tech: Location: [place] [address] Ref Provider: JAHAIRA DC Height(Cm): 152 BSA: 1.93 Weight(Kg): 88 Heart Rate: 82 BP: 117/62 Quality: Good Order Provider: JAHAIRA DC PROCEDURES: Echocardiographic Report: Transthoracic echocardiogram with complete 2D, M-Mode, and color Doppler examination. INDICATIONS: Congestive Heart Failure. Measurements: 2D/M Mode Doppler Measurement Value Normal Range Measurement Value Normal Range EF Teich 2D66.2 [ 54.0 - 74.0 ] percent EDUARDO Vmax 2.51 cm2 EF Mod 4C 60.5 percent AV Mean PG 5 mmHg LVIDd 2D 3.21 [ 3.80 - 5.20 ] cm AV Peak Matt 1.61 [ 1.00 - 1.70 ] m/s LVIDs 2D 2.08 [ 2.20 - 3.50 ] cm AV VTI 31.54 cm LVPWd 2D 1.13 [ 0.60 - 0.90 ] cm LVOT Diam 1.97 cm IVSd 2D 1.22 [ 0.60 - 0.90 ] cm LVOT Peak Matt 1.33 [ 0.70 - 1.10 ] m/s LA Dimension MM 3.48 [ 2.70 - 3.80 ] cm LVOT VTI 27.34 cm AoR Diam MM2.97 [ 2.70 - 3.70 ] cm MV E Peak Matt 1.40 [ 0.60 - 1.30 ] m/s LA Volume Index 33.48 [ 16.00 - 34.00 ] cc/m2 MV A Peak Matt 0.37 [ 1.00 - 1.20 ] m/s MV Mean PG 3 mmHg MV Decel Time 184 [ 104 - 258 ] msec PV Peak Matt 0.94 [ 0.40 - 0.80 ] m/s TR Peak Matt 2.31 [ 1.00 - 2.80 ] m/s TR Peak PG 21 mmHg E`0.11 m/s E/E` 12.00 Measurement Value Normal Range Measurement Value Normal Range 2D/M Mode Doppler - FINDINGS: Atrial Septum: Normal atrial septum. Left Ventricle: Normal left ventricular size. Mild concentric left ventricular hypertrophy. Diastolic dysfunction is present. Ejection fraction is measured at 62 %. Left Atrium: There is mild enlargement of left atrium. Right Ventricle: Normal right isabella tricular size. Normal right ventricular systolic function. Right Atrium: The right atrium is normalin size. Aortic Valve: Aortic cusps appear moderately [...] The IVC is not well visualized. CONCLUSIONS: T echnically difficult study with limited views. Normal left ventricular size. Mild concentric left ventricular hypertrophy. Diastolic dysfunction is present. Ejection fraction is measured at 62 %. Normal right ventricular size. Normal right ventricular systolic function. Mitral valve leaflets appearmildly thickened. Mild mitral annular calcification. Trivial regurgitation of the mitral valve. Aortic cusps appear moderately calcified. Aortic cusps appear mildly restricted. Mild aortic stenosis. Aortic valve area by planimetry 1.7 cm2. No aortic regurgitation. Electronically Signed By: Latanya Fitzgerald DO, DEANNA, SOLANGE MCINTYRE 2023-06-15 16:09:39 PSYCHOLOGIST CHIEF CC: CC: CC: ECG 12 lead Result Date: 06/15/2023 Narrative: Vent Rate: 65 bpm RR Interval: 911 msec KS Interval: 0 msec QRS Duration: 66 msec QT Interval: 385 msec QTC Interval: 397 msec P-R-T Arnold: 0 - 53 - 27 degrees IMPRESSION: ATRIAL FIBRILLATION LOW QRS VOLTAGE IN PRECORDIAL LEADS [QRS DEFLECTION < 1.0 mV IN CHEST LEADS]MODERATE ST DEPRESSION [0.05+ mV ST DEPRESSION] ABNORMAL ECG Electronically Signed By: Dr. Gardenia Harper [facility] XR Chest PA Lateral 2 Views Result Date: 06/14/2023 Narrative: EXAMINATION: XR CHEST PA LATERAL 2 VIEWS DATE: 06/14/2023 4:25 PM HISTORY: Shortness of breath FINDINGS: There is no infiltrate, effusion or pneumothorax. The heart is enlarged. Pulmonary vascularity is normal. There is calcification in the thoracic aorta. Impression: No active pulmonary disease. Electronically signed by: Rom Hull M.D. XR Shoulder Right 2+ Vw Result Date: 05/29/2023 Narrative: EXAM DESCRIPTION: XR SHOULDER RIGHT 2 OR [...] - Electronically signed by Hank Rangel M.D. AG T: Report ID: [id number] Reading Location: [id number] XR Spine Lumbar 2 or 3 Views Result Date: 05/29/2023 Narrative: EXAM DESCRIPTION: XR SPINE LUMBAR 2 OR 3 VIEWS REASON FOR STUDY: pain Pt complains of right anterior shoulder pain for a few weeks. No known injury. Lower mid back pain and after falling last week. No surgery to lumbar or shoulder. TECHNIQUE: 2 radiographic view(s) of the lumbar spine. COMPARISON: 12/22/2022 FINDINGS: There is mild osteopenia. There is no definite evidence of acute fracture or subluxation involving the lumbar spine. There is a mild levoscoliotic curvature lumbar spine centered at L3. There is minimal retrolisthesis of L1 on L2, L2 on L3, and L3 on L4. There is minimal to mild grade 1 anterolisthesis of L4 on L5. There is minimal anterolisthesis of L5 on S1. Thereare multilevel degenerative changes of the lumbar spine with disc space narrowing, endplate osteophytosis, and facet arthropathy. There are degenerative changes bilateral sacroiliac joints with jointspace narrowing and sclerosis. Postsurgical changes bilateral hip arthroplasties are noted. There are atherosclerotic changes of the aorta. Left common iliac and external iliac stents are again noted. IMPRESSION: Mild osteopenia with multilevel lumbar spondylosis without definite evidence of acute fracture or subluxation. THIS IS AN ELECTRONICALLY VERIFIED FINAL REPORT 05/29/2023 11:26 AM - Electronically signed by Rock CAMACHO T: Report ID: [id number] Reading Location: [id number] Recent Results (from the past 24 hour(s)) Comprehensive metabolic panel Collection Time: 06/24/23 11:42 AM Result Value Ref Range Sodium 134 (L) 135 - 145 mmol/L Potassium, pl 3.2 (L) 3.3 - 4.9 mmol/L Chloride 94 (L) 97 - 110 mmol/L CO2 28 22 - 32 mmol/L Anion gap 12 2 - 15 mmol/L BUN 34 (H) 6 - 25 mg/dL Creatinine 1.29 (H) 0.60 - 1.10 mg/dL Glucose 136 70 - 199 mg/dL Calcium 9.0 8.5 - 10.3 mg/dL Bilirubin, total 0.3 0.1 - 1.2 mg/dL Protein, pl 6.8 6.5 - 8.5 g/dL Albumin 3.5 3.5 - 5.0 g/dL Alk phos 121 40 - 130 Units/L ALT 12 7 - 45 Units/L AST 17 10 - 45 Units/L CBC with auto differential Collection Time: 06/24/23 11:42 AM Result Value Ref Range WBC 9.4 3.8 - 9.9 K/cumm Hgb 8.9 (L) 11.9 - 15.5 g/dL Hct 30.4 (L) 35.6 - 45.5 % Plt 347 150 - 400 K/cumm MPV 9.1 9.1 - 12.3 fL RBC 4.03 3.90 - 5.20 M/cumm MCV 75.4 (L) 81.3 - 96.4 fL MCH 22.1 (L) 27.1 - 33.3 pg MCHC 29.3 (L) 32.3 - 35.7 g/dL RDW CV 16.0 (H) 11.1 - 14.9 % RDW SD 44.4 35.7 - 48.1 fL NRBC abs 0.00 0.00 - 0.01 K/cumm Troponin T high-sensitivity series (baseline, 2hr, 4hr, 6hr) Collection Time: 06/24/23 11:42 AM Result Value Ref Range Trop T hs 32 (H) <=14 ng/L Pro B-type natriuretic peptide Collection Time: 06/24/23 11:42 AM Result Value Ref Range NT-proBNP 6,550 (H) <=450 pg/mL Respiratory pathogen panel Nasopharyngeal Collection Time: 06/24/23 11:42 AM Specimen: Nasopharyngeal Result Value Ref Range Influenza [...] M. pneumoniae DNA Not Detected Not Detected Protime-INR Collection Time: 06/24/23 11:42 AM Result Value Ref Range PT 16.4 (H) 10.3 - 13.7 sec INR 1.44 (H) 0.90 - 1.20 aPTT Collection Time: 06/24/23 11:42 AM Result Value Ref Range aPTT 37 28 - 38 sec Differential, auto Collection Time: 06/24/23 11:42 AM Result Value Ref Range Neutrophil abs 7.6 (H) 1.5 - 6.5 K/cumm Imm gran abs 0.1 0.0 - 0.1 K/cumm Lymphocyte abs 0.8 0.8 - 3.3 K/cumm Monocyte abs 0.6 0.2 - 0.8 K/cumm Eosinophil abs 0.3 0.0 - 0.5 K/cumm Basophil abs 0.1 0.0 - 0.1 K/cumm Neutrophil pct 80.8 % Imm gran pct 0.9 % Lymphocyte pct 8.1 % Monocyte pct 6.2 % Eosinophil pct 3.5 % Basophil pct 0.5 % eGFR Collection Time: 06/24/23 11:42 AM Result Value Ref Range eGFR 41 mL/min/1.73 m2 Sepsis Lactate w/ Reflex Collection Time: 06/24/23 12:05 PM Result Value Ref Range Sepsis Lactate 2.2 (H) 0.7 - 2.0 mmol/L Sepsis Lactate w/ Reflex Collection Time: 06/24/23 2:29 PM Result Value Ref Range Sepsis Lactate 0.9 0.7 - 2.0 mmol/L ASSESSMENT AND PLAN All Diagnosis Present on Admission Present on Admission: 1. Congestive heart failure exacerbation, acute on chronic diastolic. BNP 6550. CXR results as noted above. Continue IV Lasix. Zaroxolyn. Coreg. 2. Hypokalemia. Continue oral potassium. Repeat potassium level and evaluate. 3. Acute on chronic kidney injury. Follow. BMP in a.m. and evaluate. 4. Anemia most likely of chronic disease. Follow. 5. Restless legs syndrome. Gabapentin. Mirapex. 6. Atrial fibrillation. Continue Coreg. Aspirin. Brilinta. 7. PVD s/p AF on 02/2022. Continue Aspirin. Xarelto 8. GERD. Protonix. 9. DVT and GI prophylaxis initiated. I confirmed that the patient's Advance Care Plan is present, code status is documented, or surrogate decision maker is listed in the patient's medical record. CONSULTS None Anticipated date of discharge: To be determined per hospital course Florinda Haile NP 06/24/2023 2:50 PM [facility] Primary Care Physician: Pepper Morgan MD Voice recognition software Jellynote Direct was used dictate and transcribe this document. Teletype Mechanic variances may occur. Despite proofreading, typographical errors may occur. Cosigned by Jahaira Dc MD at 06/25/2023 11:53 AM PSYCHOLOGIST CHIEF HOLOGIST CHIEF HOLOGIST CHIEF HOLOGIST CHIEF documented in this encounter Nursing Notes * Barbie Araiza RN - 06/26/2023 11:00 AM CST Patient. AAOX4. Discharge education provided. IV and tele box removed. Patient sent home with daughter at bedside. HOLOGIST CHIEF documented in this encounter ED Notes * Mich Sheppard MD - 06/24/2023 12:27 PM CST HPI Chief Complaint Patient presents with Shortness of Breath 87-year-old male with past medical history significant for congestive heart failure, atrial fibrillation, hypertension, presents to the emergency room with complaints of shortness of breath with cough and congestion patient states she gained about 10 lb from discharge 3 lb in the last 2 days patient states he has chills. Patient worried that she got a bug. Denies chest pain at this time. Denies nausea vomiting History provided by: Patient Patient History: Patient Active Problem List Diagnosis Date Noted Acute on chronic heart failure, unspecified heart failure type ([facility]) 06/14/2023 [place] of macula of both eyes 05/30/2023 Mild persistent asthma 03/13/2023 Morbid (severe) obesity due to excess calories ([facility]) 02/07/2023 Hospital discharge follow-up 01/11/2023 Gait disturbance 11/11/2022 Chronic heart failure with preserved ejection fraction ([facility]/HCC) ([facility]) 07/25/2022 Postural kyphosis of cervicothoracic region 01/24/2022 intermission coordinator current use of anticoagulant 11/16/2021 Peripheral arterial disease ([facility]) 11/09/2021 SOBOE (shortness of breath on exertion) 04/21/2021 Atrial fibrillation ([facility]) ([facility]) 04/21/2021 Bariatric surgery status 04/04/2017 Knee joint replacement status, bilateral 04/04/2017 Spinal stenosis of lumbar region with neurogenic claudication 12/17/2016 Macular hole 05/04/2016 History of malignant melanoma 02/10/2015 Essential tremor 11/02/2013 Chronic GERD 11/02/2013 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 11/02/2013 Restless legs syndrome 11/02/2013 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 CHF (congestive heart failure) ([facility]) ([facility]) Cough DVT (deep venous thrombosis) ([facility]) ([facility]) 1976 upper left arm near [...] Cell Tobacco use 1-2ppd x 35yrs quit 07-92 Past Surgical History: Procedure Laterality Date BARIATRIC [...] TOTAL HIP ARTHROPLASTY Left 11/01/2021 Dr. Mckenzie, [facility]. Family History Problem Relation Age of Onset [...] Negative for chills, fatigue and fever. HENT: Positive for congestion. Negative for ear discharge, ear pain, postnasal drip, sinus pressure, sinus pain and sore throat. Eyes: Negative for discharge, redness and visual disturbance. Respiratory: Positive for cough and shortness of breath. Negative for chest tightness and wheezing. Cardiovascular: Negative for [...] are negative. Physical Exam ED Triage Vitals [06/24/23 1124] Temp Pulse Resp BP SpO2 36.2 ??C (97.2 ??F) 74 20 (!) 88/49 97 % Temp src Heart Rate Source Patient Position BP Location FiO2 (%) -- -- -- -- -- Height Height Method Weight Weight Method -- -- 86.6 kg (191 lb) -- Physical Exam Vitals and nursing [...] of the right-lower field reveals decreased breath sounds, wheezing and rales. Examination of the left-lower field reveals decreased breath sounds, wheezing and rales. Decreased breath sounds, wheezing and rales present. Abdominal: General: Bowel sounds are normal. There [...] Reflexes: Reflexes normal. Psychiatric: Behavior: Behavior normal. [facility] Medical Decision Making 87-year-old female with history of congestive heart failure atrial fibrillation presents with complaining of cough associated with shortness of breath from weight gain differentials include possible viral infection rule out pneumonia rule out ACS rule out congestive heart failure Amount and/or Complexity of Data Reviewed Labs: ordered. ECG/medicine tests: ordered and independent interpretation performed. Risk Prescription drug management. ED Course as of 06/24/23 7708 Time: 06/24 1229 Comment: Will obtain a cardiac workup along with a BNP By: Mich Sheppard MD Time: 06/24 1516 Comment: Reviewed the lab and imaging results patient has elevated BNP will give 1 dose of IV Lasixwill admit Discussed with Ms. Neely nurse practitioner for Dr. Restrepo [facility] hospitalist who agrees to admit this patient and will follow By: Mich Sheppard MD Final diagnoses: Shortness of breath Acute congestive heart failure, unspecified heart failure type (HCC) Mich Sheppard MD 06/24/23 1230 Mich Sheppard MD 06/24/23 1518 HOLOGIST CHIEF HOLOGIST CHIEF * Tami Bains RN - 06/24/2023 11:23 AM CST PT complains of shortness of breath, cough, and weight gain that began for one week. HOLOGIST CHIEF documented in this encounter Miscellaneous Notes * Plan of Care - Salvador Sparks MSW - 06/26/2023 12:17 PM CST Pt discharged prior to [facility] seeing for readmission assessment. Unable to complete readmission assessment with pt at this time. HOLOGIST CHIEF * Plan of Care - Orquidea Banks RN - 06/26/2023 1:57 AM CST Problem: Activity: Goal: Risk for activity intolerance will decrease Outcome: Progressing Problem: Lack of Knowledge: Goal: Knowledge of diagnostic tests will improve Outcome: Progressing Problem: Health Behavior: Goal: Ability to state signs and symptoms to report to health care provider will improve Outcome: Progressing Problem: Physical Regulation: Goal: Ability to maintain clinical measurements within normal limits will improve Outcome: Progressing Problem: Skin Integrity: Goal: Risk for impaired skin integrity will decrease Outcome: Progressing Goals: Clinical Goals for the Shift: maintain cares comfort and safety,maintain skin intergrity,strict input output Summary: HOLOGIST CHIEF * Plan of Care - Orquidea Banks RN - 06/25/2023 3:03 AM CST Problem: Activity: Goal: Risk for activity intolerance will decrease Outcome: Progressing Problem: Lack of Knowledge: Goal: Knowledge of diagnostic tests will improve Outcome: Progressing Problem: Safety: Goal: Ability to remain free from injury will improve Outcome: Progressing Problem: Sensory: Goal: Pain level will decrease Outcome: Progressing Problem: Skin Integrity: Goal: Risk for impaired skin integrity will decrease Outcome: Progressing Problem: Activity: Goal: Capacity to carry out activities will improve Outcome: Progressing Goals: Clinical Goals for the Shift: Remain free from falls,strict input out,maintain cares comfort and safety Summary: HOLOGIST CHIEF * ED Procedure Note - Mich Sheppard MD - 06/24/2023 1:13 PM PSYCHOLOGIST CHIEF Associated Order(s): ECG 12 lead Procedure ECG 12 lead Date/Time: 06/24/2023 1:13 PM Performed by: Mich Sheppard MD Authorized by: Mich Sheppard MD Rate: ECG rate: 71 ECG rate assessment: normal Rhythm: Rhythm: atrial fibrillation Ectopy: Ectopy: none QRS: QRS axis: Normal QRS intervals: Normal Conduction: Conduction: normal ST segments: ST segments: Non-specific T waves: T waves: non-specific Interpretation: Interpretation comment: Atrial fibrillation rate [address] change Mich Sheppard MD 06/24/23 1314 HOLOGIST CHIEF documented in this encounter Plan of Treatment [...] Priority Date/Time Associated Diagnosis Comments EGFR Routine 06/26/2023 2:52 AM PSYCHOLOGIST CHIEF CBC WITHOUT DIFFERENTIAL Routine 06/26/2023 2:52 AM PSYCHOLOGIST CHIEF BASIC METABOLIC PANEL Routine 06/26/2023 2:52 AM PSYCHOLOGIST CHIEF URINALYSIS AND REFLEX TO MICROSCOPIC AND CULTURE STAT 06/25/2023 5:52 PM PSYCHOLOGIST CHIEF URINALYSIS, MICROSCOPIC ONLY STAT 06/25/2023 5:52 PM PSYCHOLOGIST CHIEF TROPONIN T HIGH-SENSITIVITY 2-HOUR Timed 06/24/2023 2:39 PM PSYCHOLOGIST CHIEF SEPSIS LACTATE WITH REFLEX Timed 06/24/2023 2:29 PM PSYCHOLOGIST CHIEF BLOOD CULTURE STAT 06/24/2023 1:20 PM PSYCHOLOGIST CHIEF BLOOD CULTURE STAT 06/24/2023 1:20 PM PSYCHOLOGIST CHIEF XR CHEST 1 VIEW ED 06/24/2023 12:22 PM PSYCHOLOGIST CHIEF SEPSIS LACTATE WITH REFLEX Routine 06/24/2023 12:05 PM PSYCHOLOGIST CHIEF TROPONIN T HIGH-SENSITIVITY SERIES (BASELINE, 2HR, 4HR, 6HR) STAT 06/24/2023 11:42 AM PSYCHOLOGIST CHIEF EGFR STAT 06/24/2023 11:42 AM PSYCHOLOGIST CHIEF DIFFERENTIAL AUTO STAT 06/24/2023 11: 42 AM PSYCHOLOGIST CHIEF PRO B-TYPE NATRIURETIC PEPTIDE STAT 06/24/2023 11:42 AM PSYCHOLOGIST CHIEF RESPIRATORY PATHOGEN PANEL Routine 06/24/2023 11:42 AM PSYCHOLOGIST CHIEF CBC WITH AUTO DIFFERENTIAL STAT 06/24/2023 11:42 AM PSYCHOLOGIST CHIEF APTT STAT 06/24/2023 11:42 AM PSYCHOLOGIST CHIEF PROTIME-INR STAT 06/24/2023 11:42 AM PSYCHOLOGIST CHIEF COMPREHENSIVE METABOLIC PANEL STAT 06/24/2023 11:42 AM PSYCHOLOGIST CHIEF ECG 12-LEAD STAT 06/24/2023 11:26 AM PSYCHOLOGIST CHIEF documented in this encounter Results * eGFR (06/26/2023 2:52 AM PSYCHOLOGIST CHIEF) [facility] eGFR 33 mL/min/1. 73 m2 [facility] Comment: Interpretive [...] interpretive data was last reviewed 2021. Blood 06/26/2023 2:52 AM PSYCHOLOGIST CHIEF 06/26/2023 3:23 AM PSYCHOLOGIST CHIEF us Jahaira Dc MD LAB BLOOD ORDERABLES Final Re sult [facility] [address] [place] [address] * (ABNORMAL) Basic metabolic panel (06/26/2023 2:52 AM PSYCHOLOGIST CHIEF) Sodium 133(L) 135 - 145 mmol/L [facility] Potassium, pl 3.7 3.3 - 4.9 mmol/L [facility] Chloride 90(L) 97 - 110 mmol/L [facility] CO2 30 22 - 32 mmol/L [facility] Anion gap 13 2 - 15 mmol/L [facility] BUN 43(H) 6 - 25 mg/dL [facility] Creatinine 1.53(H) 0.60 - 1.10 mg/dL [facility] Glucose 160 70 - 199 mg/dL [facility] Comment: Interpretive Data Fasting glucose >/= 126 [...] classification and Diagnosis of Diabetes Diabetes Care 2022; 46: S19-S40. Current interpretive data was last revised 2022. Calcium 9.6 8.5 - 10.3 mg/dL [facility] Blood 06/26/2023 2:52 AM PSYCHOLOGIST CHIEF 06/26/2023 3:23 AM PSYCHOLOGIST CHIEF Jahaira Dc MD LAB BLOOD ORDERABLES Final Re sult Performing Organization Address City/[facility]/ZIP Co de Phone Number [facility] [address] [place] [place] [address] * (ABNORMAL) CBC without differential (06/26/2023 2:52 AM PSYCHOLOGIST CHIEF) WBC 7.6 3.8 - 9.9 K/cumm [facility] Hgb 9.9(L) 11.9 - 15.5 g/dL [facility] Hct 33.3(L) 35.6 - 45.5 % [facility] Plt 396 150 - 400 K/cumm [facility] MPV 8.9(L) 9.1 - 12.3 fL [facility] RBC 4.50 3.90 - 5.20 M/cumm [facility] MCV 74.0(L) 81.3 - 96.4 fL [facility] MCH 22.0(L) 27.1 - 33.3 pg [facility] MCHC 29.7(L) 32.3 - 35.7 g/dL [facility] RDW CV 16.3(H) 11.1 - 14.9 % [facility] RDW SD 43.8 35.7 - 48.1 fL [facility] NRBC abs 0.00 0.00 - 0.01 K/cumm [facility] Blood 06/26/2023 2:52 AM PSYCHOLOGIST CHIEF 06/26/2023 3:23 AM PSYCHOLOGIST CHIEF Jahaira Dc MD LAB BLOOD ORDERABLES Final Re sult Performing Organization Address City/[facility]/ZIP Co de Phone Number [facility] [address] Department of [employer] [place], [place] [id number] * (ABNORMAL) Urinalysis, microscopic only (06/25/2023 5:52 PM PSYCHOLOGIST CHIEF) WBC, ur 6-10(A) 0 - 5 /HPF [facility] RBC, ur 0-2 0 - 2 /HPF [facility] Epithelial cells, squamous, ur 1-5 0 - 5 /HPF [facility] Mucous, ur Present(A) [facility] Hyaline casts, ur 6-10 0 - 10 /LPF [facility] Culture Reflex Comment Reflex conditions for urine culture (WBC >10) not met. [facility] Urine 06/25/2023 5:52 PM PSYCHOLOGIST CHIEF 06/25/2023 6:17 PM PSYCHOLOGIST CHIEF Florinda Haile NP LAB URINE ORDERABLES Final R esult [facility] [address] Department [place] [address] * (ABNORMAL) Urinalysis reflex to microscopic and culture Urine (06/25/2023 5:52 PM PSYCHOLOGIST CHIEF) Color, ur Yellow Yellow [facility] Clarity, ur Clear Clear [facility] Specific gravity, ur 1.013 1.003 - 1.030 [facility] pH, urine 5.0 [facility] Comment: Interpretive Data ? Urine pH is affected by diet, medications, systemic acid-base disturbances, and renal tubular function. ??pH may affect urinary stone formation. ??For example, urine pH below 6.0 may help reduce the tendency for calcium phosphate stones and pH greater than 6.0 may reduce the tendency for uric acid stone formation. Source: [facility] [place] Current Interpretive Data was last revised on 2017 Protein, ur ql Negative Negative [facility] Glucose, ur ql 3+(A) Negative [facility] Ketones, ur Negative Negative [facility] Bilirubin, ur Negative Negative [facility] Blood, ur Negative Negative [facility] Urobilinogen, ur <2.0 <2.0 mg/dL [facility] Nitrite, ur Negative Negative [facility] Leukocyte esterase, ur 1+(A) Negative [facility] UA reflex comment Reflex to microscopic UA will be performed. [facility] Urine 06/25/2023 5:52 PM PSYCHOLOGIST CHIEF 06/25/2023 6:17 PM PSYCHOLOGIST CHIEF Florinda Haile NP LAB MICROBIOLOGY - GENERAL O RDERABLES Final Result Performing Organization Address [facility] Co de Phone Number [facility] [address] [facility] [place] [address] * (ABNORMAL) Troponin T high-sensitivity 2-hour (06/24/2023 2:39 PM PSYCHOLOGIST CHIEF) Trop T hs 23(H) <=14 ng/L [facility] Comment: Interpretive Data For further hscTnT resources including the diagnostic algorithm and an aid in interpretation, copy and paste this link: https://nrl.testcatalog.org/show/hsTrop Current Interpretive Data last revised 2020. Trop T hs delta -9 ng/L [facility] Trop T hs interp Equivocal [facility] Blood 06/24/2023 2:39 PM PSYCHOLOGIST CHIEF 06/24/2023 2:39 PM PSYCHOLOGIST CHIEF Nguyen Ritchie MD LAB BLOOD ORDERABLES F inal Result Performing Organization Address [facility] Co de Phone Number [facility] [address] [place] [address] * Sepsis Lactate w/ Reflex (06/24/2023 2:29 PM PSYCHOLOGIST CHIEF) Sepsis Lactate 0.9 0.7 - 2.0 mmol/L [facility] Blood 06/24/2023 2:29 PM PSYCHOLOGIST CHIEF 06/24/2023 2:33 PM PSYCHOLOGIST CHIEF Mich Sheppard MD LAB BLOOD ORDERABLES Fi nal Result Performing Organization Address [facility] Co de Phone Number [facility] [address] [place] [address] * Blood culture Blood Forearm, right (06/24/2023 1:20 PM PSYCHOLOGIST CHIEF) Report Final Report: No growth [facility]AN Comment:Testing performed by : [facility], [address] [address] [facility], [place]., [address] Blood (Forearm, right) 06/24/2023 1:20 PM PSYCHOLOGIST CHIEF 06/24/2023 4:56 PM PSYCHOLOGIST CHIEF Narrative [facility]AN - 06/29/2023 7:00 AM PSYCHOLOGIST CHIEF From a different site than #1. Draw Blood cultures before administration of Antibiotics Collection->Peripheral 1. ?Blood cultures are incubated for 4 days on a continuously monitored blood culture system. The first report of a negative culture is issued within 24 hours of receipt of the specimen in the laboratory. 2. ?Positive culture results are reported as soon as they are detected. 3. ?The most important factor for detection of microbes in the setting of bloodstream infection is the volume of blood submitted for culture. Failure to collect an optimal blood volume can result in false negative blood cultures. For pediatric patients, the recommended blood volume to collect is 1 mL of blood per year of patient age (up to 20 mL) per blood culture set. For adult patients, 20 mL of blood, divided equally between aerobic and anaerobic blood culture bottles, is recommended for each blood culture set. 4. ?For blood cultures with Gram-positive cocci, a rapid molecular test for organism identification may be performed using the HuTerraigene Gram-Positive Blood Culture Assay. This assay detects microbial DNA in positive blood culture broth via hybridization of target DNA to capture oligonucleotides on a microarray. This assay has been cleared by the [place] Food and Drug Administration and its performance characteristics have been verified by the [facility] Laboratory. 5. ?For questions about this culture, contact the Microbiology Laboratory at [phone]. Interpretive data was last revised on 2019. us Mich Sheppard MD LAB MICROBIOLOGY - GENE RAL ORDERABLES Final Result [facility] [address] Department [place] [address] * Blood culture Blood Antecubital, right (06/24/2023 1:20 PM PSYCHOLOGIST CHIEF) Report Final Report: No growth [facility] VAUGHAN Comment:Testing performed by : [facility], [address] [facility] [address] [facility], [place]., [address] Blood (Antecubital, right) 06/24/2023 1:20 PM PSYCHOLOGIST CHIEF 06/24/2023 4:56 PM PSYCHOLOGIST CHIEF Narrative [facility]GHAN - 06/29/2023 7:00 AM PSYCHOLOGIST CHIEF Draw Blood cultures before administration of Antibiotics Collection->Peripheral 1. ?Blood cultures are incubated for 4 days on a continuously monitored blood culture system. The first report of a negative culture is issued within 24 hours of receipt of the specimen in the laboratory. 2. ?Positive culture results are reported as soon as they are detected. 3. ?The most important factor for detection of microbes in the setting of bloodstream infection is the volume of blood submitted for culture. Failure to collect an optimal blood volume can result in false negative blood cultures. For pediatric patients, the recommended blood volume to collect is 1 mL of blood per year of patient age (up to 20 mL) per blood culture set. For adult patients, 20 mL of blood, divided equally between aerobic and anaerobic blood culture bottles, is recommended for each blood culture set. 4. ?For blood cultures with Gram-positive cocci, a rapid molecular test for organism identification may be performed using the HuTerraigene Gram-Positive Blood Culture Assay. This assay detects microbial DNA in positive blood culture broth via hybridization of target DNA to capture oligonucleotides on a microarray. This assay has been cleared by the [place] Food and Drug Administration and its performance characteristics have been verified by the [facility]biology Laboratory. 5. ?For questions about this culture, contact the Microbiology Laboratory at [phone]. Interpretive data was last revised on 2019. us Mich Sheppard MD LAB MICROBIOLOGY - GENE RAL ORDERABLES Final Result [facility] [address] Department [place] [address] * XR Chest 1 Vw Portable (06/24/2023 12:22 PM PSYCHOLOGIST CHIEF) Anatomical Region Laterality Modality Body, Chest N/A Computed Radiogr aphy 06/24/2023 12:4 1 PM PSYCHOLOGIST CHIEF Impressions 06/24/2023 12:41 PM PSYCHOLOGIST CHIEF No acute cardiopulmonary findings. Electronically signed by: Jason Darling II, D.O. Narrative 06/24/2023 12:41 PM PSYCHOLOGIST CHIEF EXAMINATION: XR CHEST 1 VIEW DATE: 06/24/2023 11:55 AM INDICATION: Shortness of breath. COMPARISON: None. FINDINGS: No pneumothorax, pleural effusion, or pulmonary consolidation is demonstrated. The cardiomediastinal silhouette is within normal limits. No acute osseous abnormality demonstrated. Procedure Note Jason Darling II, DO - 06/24/2023 EXAMINATION: XR CHEST 1 VIEW DATE: 06/24/2023 11:55 AM INDICATION: Shortness of breath. COMPARISON: None. FINDINGS: No pneumothorax, pleural effusion, or pulmonary consolidation is demonstrated. The cardiomediastinal silhouette is within normal limits. No acute osseous abnormality demonstrated. IMPRESSION: No acute cardiopulmonary findings. Electronically signed by: Jason Darling II, D.O. Jason BRUCE IMG XR PROCEDURES Final Re sult * (ABNORMAL) Sepsis Lactate w/ Reflex (06/24/2023 12:05 PM PSYCHOLOGIST CHIEF) Sepsis Lactate 2.2(H) 0.7 - 2.0 mmol/L [facility] Blood 06/24/2023 12:0 5 PM PSYCHOLOGIST CHIEF 06/24/2023 12:22 PM PSYCHOLOGIST CHIEF us Mich Sheppard MD LAB BLOOD ORDERABLES Fi nal Result [facility] [id number] Department [place] [address] * eGFR (06/24/2023 11:42 AM PSYCHOLOGIST CHIEF) eGFR 41 mL/min/1. 73 m2 [facility] Comment: Interpretive Data [...] interpretive data was last reviewed 2021. Blood 06/24/2023 11:4 2 AM PSYCHOLOGIST CHIEF 06/24/2023 11:53 AM PSYCHOLOGIST CHIEF us Nguyen Ritchie MD LAB BLOOD ORDERABLES F inal Result [facility] [address] [place] [address] * (ABNORMAL) Differential, auto (06/24/2023 11:42 AM PSYCHOLOGIST CHIEF) Neutrophil abs 7.6(H) 1.5 - 6.5 K/cumm [facility] Imm gran abs 0.1 0.0 - 0.1 K/cumm [facility] Lymphocyte abs 0.8 0.8 - 3.3 K/cumm [facility] Monocyte abs 0.6 0.2 - 0.8 K/cumm [facility] Eosinophil abs 0.3 0.0 - 0.5 K/cumm [facility] Basophil abs 0.1 0.0 - 0.1 K/cumm [facility] Neutrophil pct 80.8 % [facility] Comment: Interpretive Data Percent cell count reference ranges are not reported, since discordance with absolute values may lead to misinterpretation of CBC data. Current Interpretive Data was last revised on 2017. Imm gran pct 0.9 % [facility] Comment: Interpretive Data Percent cell count reference ranges are not reported, since discordance with absolute values may lead to misinterpretation of CBC data. Current Interpretive Data was last revised on 2017. Lymphocyte pct 8.1 % [facility] Comment: Interpretive Data Percent cell count reference ranges are not reported, since discordance with absolute values may lead to misinterpretation of CBC data. Current Interpretive Data was last revised on 2017. Monocyte pct 6.2 % [facility] Comment: Interpretive Data Percent cell count reference ranges are not reported, since discordance with absolute values may lead to misinterpretation of CBC data. Current Interpretive Data was last revised on 2017. Eosinophil pct 3.5 % [facility] Comment: Interpretive Data Percent cell count reference ranges are not reported, since discordance with absolute values may lead to misinterpretation of CBC data. Current Interpretive Data was last revised on 2017. Basophil pct 0.5 % [facility] Comment: Interpretive Data Percent cell count reference ranges are not reported, since discordance with absolute values may lead to misinterpretation of CBC data. Current Interpretive Data was last revised on 2017. Blood 06/24/2023 11:4 2 AM PSYCHOLOGIST CHIEF 06/24/2023 11:53 AM PSYCHOLOGIST CHIEF Nguyen Ritchie MD LAB BLOOD ORDERABLES F inal Result [facility] [address] Department [place] [address] * aPTT (06/24/2023 11:42 AM PSYCHOLOGIST CHIEF) aPTT 37 28 - 38 sec [facility] Comment: Interpretive Data Heparin therapeutic range: 66.0 - 100.0 seconds. Range based on correlation with therapeutic heparin activity range of 0.3 - 0.7 Units/mL. Current interpretive data was last revised on 2023. Blood 06/24/2023 11:4 2 AM PSYCHOLOGIST CHIEF 06/24/2023 11:53 AM PSYCHOLOGIST CHIEF Mich Sheppard MD LAB BLOOD ORDERABLES Fi nal Result Performing Organization Address [facility] Co de Phone Number [facility] [address] [place] [address] * (ABNORMAL) Protime-INR (06/24/2023 11:42 AM PSYCHOLOGIST CHIEF) PT 16.4(H) 10.3 - 13.7 sec [facility] INR 1.44(H) 0.90 - 1.20 [facility] Comment: Interpretive data Oral anticoagulant therapeutic ranges: Venous thromboembolism prophylaxis or treatment: 2.0-3.0 CARDIOLOGY Standard range: 2.0-3.0 High-intensity range: 2.5-3.5 Refer to indication-specific guidelines for appropriate target ranges for prosthetic heart valve replacement. Current interpretive data was last revised on 2019. Blood 06/24/2023 11:4 2 AM PSYCHOLOGIST CHIEF 06/24/2023 11:53 AM PSYCHOLOGIST CHIEF Mich Sheppard MD LAB BLOOD ORDERABLES Fi nal Result Performing Organization Address [facility] Co de Phone Number [facility] [address] [place] [address] * Respiratory pathogen panel Nasopharyngeal (06/24/2023 11:42 AM PSYCHOLOGIST CHIEF) Influenza A RNA Not Detected Not Detected [facility] Influenza B RNA Not Detected Not Detected [facility] RSV RNA Not Detected Not Detected [facility] COVID-19 RNA Not Detected Not Detected [facility] Coronavirus 229E RNA Not Detected Not Detected [facility] Coronavirus HKU1 RNA Not Detected Not Detected [facility] Coronavirus NL63 RNA Not Detected Not Detected [facility] Coronavirus OC43 RNA Not Detected Not Detected [facility] Adenovirus DNA Not Detected Not Detected [facility] Metapneumovirus RNA Not Detected Not Detected [facility] Rhinovirus/Enterov irus RNA Not Detected Not Detected [facility] Parainfluenza 1 RNA Not Detected Not Detected [facility] Parainfluenza 2 RNA Not Detected Not Detected [facility] Parainfluenza 3 RNA Not Detected Not Detected [facility] Parainfluenza 4 RNA Not Detected Not Detected [facility] B. pertussis DNA Not Detected Not Detected [facility] B. parapertussis DNA Not Detected Not Detected [facility] C. pneumoniae DNA Not Detected Not Detected [facility] M. pneumoniae DNA Not Detected Not Detected [facility] Comment: Interpretive Data The YuanV FilmArray Respiratory Panel (RP2.1) assay is a [...] assay has FDA clearance for testing of BASKETBALL REFEREE swabs. ??The performance characteristics of this assay have been determined by [facility]. Current interpretive data was last revised on 2021. Nasopharyngeal 06/24/2023 11 :42 AM PSYCHOLOGIST CHIEF 06/24/2023 11:48 AM PSYCHOLOGIST CHIEF Narrative [facility] - 06/24/2023 12:45 PM PSYCHOLOGIST CHIEF Is the Patient experiencing symptoms consistent with COVID?->Yes Date of Symptom Onset->06/21/23 Reason for testing?->Symptomatic Surveillance testing for transplant patient?->No Mich Sheppard MD LAB MICROBIOLOGY - GENE RAL ORDERABLES Final Result [facility] [address] Department [place] [address] * (ABNORMAL) Pro B-type natriuretic peptide (06/24/2023 11:42 AM PSYCHOLOGIST CHIEF) NT-proBNP 6,550(H) <=450 pg/mL [facility] Comment: Interpretive Comments: A. Dyspnea in Acute [...] Interpretive Data Last Revised Date: 2018. Blood 06/24/2023 11:4 2 AM PSYCHOLOGIST CHIEF 06/24/2023 11:53 AM PSYCHOLOGIST CHIEF us Mich Sheppard MD LAB BLOOD ORDERABLES Fi nal Result [facility] [address] [place] [address] * (ABNORMAL) Troponin T high-sensitivity series (baseline, 2hr, 4hr, 6hr) (06/24/2023 11:42 AM PSYCHOLOGIST CHIEF) Trop T hs 32(H) <=14 ng/L [facility] Comment: Interpretive Data For further hscTnT resources including the diagnostic algorithm and an aid in interpretation, copy and paste this link: https://nrl.testcatalog.org/show/hsTrop Current Interpretive Data last revised 2020. Blood 06/24/2023 11:4 2 AM PSYCHOLOGIST CHIEF 06/24/2023 11:53 AM PSYCHOLOGIST CHIEF Mich Sheppard MD LAB BLOOD ORDERABLES Fi nal Result [facility] [address] [place] [address] * (ABNORMAL) CBC with auto differential (06/24/2023 11:42 AM PSYCHOLOGIST CHIEF) WBC 9.4 3.8 - 9.9 K/cumm [facility] Hgb 8.9(L) 11.9 - 15.5 g/dL [facility] Hct 30.4(L) 35.6 - 45.5 % [facility] Plt 347 150 - 400 K/cumm [facility] MPV 9.1 9.1 - 12.3 fL [facility] RBC 4.03 3.90 - 5.20 M/cumm [facility] MCV 75.4(L) 81.3 - 96.4 fL [facility] MCH 22.1(L) 27.1 - 33.3 pg [facility] MCHC 29.3(L) 32.3 - 35.7 g/dL [facility] RDW CV 16.0(H) 11.1 - 14.9 % [facility] RDW SD 44.4 35.7 - 48.1 fL [facility] NRBC abs 0.00 0.00 - 0.01 K/cumm [facility] Blood 06/24/2023 11:4 2 AM PSYCHOLOGIST CHIEF 06/24/2023 11:53 AM PSYCHOLOGIST CHIEF Mich Sheppard MD LAB BLOOD ORDERABLES Fi nal Result [facility] [address] [place] [address] * (ABNORMAL) Comprehensive metabolic panel (06/24/2023 11:42 AM PSYCHOLOGIST CHIEF) Sodium 134(L) 135 - 145 mmol/L [facility] Potassium, pl 3.2(L) 3.3 - 4.9 mmol/L [facility] Chloride 94(L) 97 - 110 mmol/L [facility] CO2 28 22 - 32 mmol/L [facility] Anion gap 12 2 - 15 mmol/L [facility] BUN 34(H) 6 - 25 mg/dL [facility] Creatinine 1.29(H) 0.60 - 1.10 mg/dL [facility] Glucose 136 70 - 199 mg/dL [facility] Comment: [...] interpretive data was last revised 2022. Calcium 9.0 8.5 - 10.3 mg/dL [facility] Bilirubin, total 0.3 0.1 - 1.2 mg/dL [facility] Protein, pl 6.8 6.5 - 8.5 g/dL [facility] Albumin 3.5 3.5 - 5.0 g/dL [facility] Alk phos 121 40 - 130 Units/L [facility] ALT 12 7 - 45 Units/L [facility] AST 17 10 - 45 Units/L [facility] Blood 06/24/2023 11:4 2 AM PSYCHOLOGIST CHIEF 06/24/2023 11:53 AM PSYCHOLOGIST CHIEF us Mich Sheppard MD LAB BLOOD ORDERABLES Fi nal Result [facility] [id number] [place] [address] * ECG 12 lead (06/24/2023 11:26 AM PSYCHOLOGIST CHIEF) 06/24/2023 11:2 6 AM PSYCHOLOGIST CHIEF Narrative [facility] - 06/25/2023 8:58 PM PSYCHOLOGIST CHIEF Vent Rate: 71 bpm RR Interval: 843 msec KS Interval: 0 msec QRS Duration: 82 msec QT Interval: 406 msec QTC Interval: 428 msec P-R-T Arnold: 0 - 74 - 22 degrees IMPRESSION: ATRIAL FIBRILLATION WITH CONTROLLED VENTRICULAR RESPONSE LOW QRS VOLTAGE IN PRECORDIAL LEADS Electronically Signed By: Collin Rich MD, [facility] us Mich Sheppard MD ECG ORDERABLES Edited Result - Final [facility] documented in this encounter Visit Diagnoses Diagnosis Shortness of breath Acute congestive heart failure, unspecified heart failure type (HCC) Acute congestive heart failure, unspecified heart failure type (HCC) documented in this encounter Admitting Diagnoses Diagnosis Acute congestive heart failure, unspecified heart failure type (HCC) documented in this encounter Administered Medications Inactive Administered Medications - up to 3 most recent administrations Medication Order MAR Action Action Date Dose Rate Site acetaminophen (TYLENOL) tablet 1,000 mg 1,000 mg, oral, Every 6 hours PRN, fever, headaches, Starting on 06/24/23 at 2258 albuterol HFA (PROVENTIL HFA,VENTOLIN HFA,PROAIR HFA) 90 mcg/actuation inhaler 2 puff 2 puff, inhalation, Every 6 hours PRN (correspondence specialist), wheezing, shortness of breath, Starting on 06/24/23 at 1847 aspirin enteric coated tablet 81 mg 81 mg, oral, Daily, First dose on 06/24/23 at 1552, Do not crush, chew, cut, dissolve, open or otherwise manipulate tablet/capsule. Given 06/26/2023 9:23 AM PSYCHOLOGIST CHIEF 81 mg Given 06/25/2023 9:41 AM PSYCHOLOGIST CHIEF 81 mg benzonatate (TESSALON) capsule 200 mg 200 mg, oral, 3 times daily PRN, cough, Starting on 06/25/23 at 1206, Do not crush, chew, cut, dissolve, open or otherwise manipulate tablet/capsule., Indications: CoughIndications:Cough carvediloL (COREG) tablet 6.25 mg 6.25 mg, oral, 2 times daily with meals (bkfst, dinner), First dose on 06/24/23 at 1800 Given 06/26/2023 9:22 AM PSYCHOLOGIST CHIEF 6.25 mg Given 06/25/2023 6:06 PM PSYCHOLOGIST CHIEF 6.25 mg Given 06/24/2023 6:03 PM PSYCHOLOGIST CHIEF 6.25 mg cetirizine (ZyrTEC) tablet 5 mg 5 mg, oral, Nightly, First dose on 06/24/23 at 2100 Given 06/25/2023 9:44 PM PSYCHOLOGIST CHIEF 5 mg Given 06/24/2023 8:44 PM PSYCHOLOGIST CHIEF 5 mg cholecalciferol (VITAMIN D-3) tablet 2,000 Units 2,000 Units, oral, Daily, First dose on 06/24/23 at 1609, Each tablet contains 1,000 units (25 mcg) of cholecalciferol. Given 06/26/2023 9:22 AM PSYCHOLOGIST CHIEF 2,000 Units Given 06/25/2023 9:41 AM PSYCHOLOGIST CHIEF 2,000 Units dextromethorphan-guaiFENesin (ROBITUSSIN-DM) 2-20 mg/mL syrup 10 mL 10 mL, oral, 4 times daily PRN, cough, Starting on 06/24/23 at 2248 Given 06/25/2023 9:40 AM PSYCHOLOGIST CHIEF 10 mL Given 06/24/2023 11:37 PM PSYCHOLOGIST CHIEF 10 mL empagliflozin (JARDIANCE) tablet 10 mg 10 mg, oral, Daily, First dose on 06/24/23 at 1609, I /authorizing provider attest that the patient meets the approved [facility] Use Criteria: Yes, Approving Provider: ANKUR Hair, Indications: Heart FailureIndications:Heart Failure Given 06/26/2023 9:22 AM PSYCHOLOGIST CHIEF 10 mg fluticasone furoate-vilanteroL (BREO ELLIPTA) 100-25 mcg/dose inhaler 1 puff 1 puff, inhalation, Daily (correspondence specialist), First dose on 06/24/23 at 1609 Given 06/26/2023 9:21 AM PSYCHOLOGIST CHIEF 1 puff Given 06/25/2023 10:20 AM PSYCHOLOGIST CHIEF 1 puff furosemide (LASIX) 10 mg/mL injection 40 mg 40 mg, intravenous, Once, On 06/24/23 at 1444, For 1 dose, Room temperature only Given 06/24/2023 3:06 PM PSYCHOLOGIST CHIEF 40 mg furosemide (LASIX) 10 mg/mL injection 40 mg 40 mg, intravenous, Every 12 hours scheduled, First dose on 06/24/23 at 2100, Room temperature only Given 06/24/2023 8:44 PM PSYCHOLOGIST CHIEF 40 mg furosemide (LASIX) tablet 40 mg 40 mg, oral, 2 times daily (for diuretics), First dose on 06/25/23 at 1600 Given 06/26/2023 9:23 AM PSYCHOLOGIST CHIEF 40 mg Given 06/25/2023 4:14 PM PSYCHOLOGIST CHIEF 40 mg gabapentin (NEURONTIN) capsule 300 mg 300 mg, oral, Nightly, First dose on 06/24/23 at 2100 Given 06/25/2023 9:44 PM PSYCHOLOGIST CHIEF 300 mg Given 06/24/2023 8:44 PM PSYCHOLOGIST CHIEF 300 mg guaiFENesin (ROBITUSSIN) 20 mg/mL oral liquid 200 mg 200 mg, oral, Every 4 hours PRN, cough, congestion, Starting on 06/25/23 at 1224 Given 06/25/2023 4:21 PM PSYCHOLOGIST CHIEF 2 00 mg ipratropium-albuteroL (DUO-NEB) 0.5-2.5 mg/3 mL nebulizer solution 3 mL 3 mL, nebulization, Every 6 hours while awake (correspondence specialist), First dose on [facility] 06/24/23 at 1552, Indications: Chronic Obstructive Pulmonary Disease with BronchospasmsIndications:Chronic Obstructive Pulmonary Disease with Bronchospasms Given 06/26/2023 9:21 AM PSYCHOLOGIST CHIEF 3 mL Given 06/26/2023 12:07 AM PSYCHOLOGIST CHIEF 3 mL Given 06/25/2023 4:01 PM PSYCHOLOGIST CHIEF 3 mL methylPREDNISolone sodium succinate (SOLU-medrol) preservative free injection 40 mg 40 mg, intravenous, Administer over 3 Minutes, Every 12 hours scheduled, First dose on Mon06/25/23 at 1300, Administer 125 mg or less over 3 minutes Given 06/26/2023 9:23 AM PSYCHOLOGIST CHIEF 40 mg Given 06/25/2023 9:45 PM PSYCHOLOGIST CHIEF 40 mg Given 06/25/2023 4:13 PM PSYCHOLOGIST CHIEF 40 mg metOLazone (ZAROXOLYN) tablet 2.5 mg 2.5 mg, oral, Every other day, First dose on 06/25/23 at 0900 Given 06/25/2023 9:41 AM PSYCHOLOGIST CHIEF 2.[address] (PROTONIX) extended release tablet 40 mg 40 mg, oral, Daily, First dose on 06/24/23 at 1609, Do not crush, chew, cut, dissolve, open or otherwise manipulate tablet/capsule., Indications: Treatment of Non-Bleeding Gastric DisorderIndications:Treatment of Non-Bleeding Gastric Disorder Given 06/26/2023 9:23 AM PSYCHOLOGIST CHIEF 40 mg Given 06/25/2023 9:41 AM PSYCHOLOGIST CHIEF 40 mg potassium chloride ER (KLOR-CON) extended release tablet 20 mEq 20 mEq, oral, Daily, First dose on 06/24/23 at 1609, Do not crush, chew, cut, dissolve, open or otherwise manipulate tablet/capsule. Given 06/26/2023 9:22 AM PSYCHOLOGIST CHIEF 20 mEq Given 06/25/2023 9:41 AM PSYCHOLOGIST CHIEF 20 mEq potassium chloride ER (KLOR-CON) extended release tablet 40 mEq 40 mEq, oral, Once, On 06/24/23 at 1232, For 1 dose, Tablets should not be crushed, chewed, dissolved, or otherwise manipulated. Capsules may be opened and sprinkled on a spoonful of applesauce or pudding, but the contents of the capsule should not be crushed or chewed. Given 06/24/2023 3:06 PM PSYCHOLOGIST CHIEF 40 mEq pramipexole (MIRAPEX) tablet 0.5 mg 0.5 mg, oral, 2 times daily, First dose on 06/24/23 at 2100, Indications: Idiopathic Parkinsonism, Restless Legs SyndromeIndications:Idiopathic Parkinsonism,Restless Legs Syndrome Given 06/24/2023 8:47 PM PSYCHOLOGIST CHIEF 0.5 mg pramipexole (MIRAPEX) tablet 0.5 mg 0.5 mg, oral, 2 times daily, First dose (after last modification) on 06/25/23 at 2100, At noon and 2100 , Indications: Idiopathic Parkinsonism, Restless Legs SyndromeIndications:Idiopathic Parkinsonism,Restless Legs Syndrome Given 06/25/2023 9:44 PM PSYCHOLOGIST CHIEF 0.5 mg pramipexole (MIRAPEX) tablet 0.5 mg 0.5 mg, oral, Once, On 06/25/23 at 1245, For 1 dose Given 06/25/2023 4:14 PM PSYCHOLOGIST CHIEF 0.5 mg ramelteon (ROZEREM) tablet 8 mg 8 mg, oral, Nightly PRN, sleep, Starting on 06/24/23 at 2258, Indications: Sleep-Onset InsomniaIndications:Sleep-Onset Insomnia Given 06/24/2023 11:37 PM PSYCHOLOGIST CHIEF 8 mg rivaroxaban (XARELTO) tablet 15 mg 15 mg, oral, Daily with dinner, First dose (after last modification) on 06/25/23 at 1800, Nurse to discontinue heparin infusion order and associated bolus at first administration of rivaroxaban using 'order condition met' order source. If patient is eating, administer doses of 15 mg or greater with food. If patient is not eating, still administer dose unless instructed differently by provider. , Indications: atrial fibrillationIndications:atrial fibrillation Given 06/25/2023 6:06 PM PSYCHOLOGIST CHIEF 15 mg documented in this encounter Discontinued Medications Medication Sig Discontinue Reason Start Date End Da te clonazePAM (KlonoPIN) 0.5 mg tabletIndications:Restles s legs syndrome Take 1 tablet (0.5 mg total) by mouth nightly 05/30/2023 06/24/2023 felodipine (PLENDIL) 5 mg 24 hr tabletIndications: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 Take 1 tablet (5 mg total) by mouth daily 12/08/2022 06/24/2023 furosemide (LASIX) 40 mg tablet Take 1 tablet (40 mg total) by mouth 2 (two) times a day 06/21/2023 06/26/2023 documented as of this encounter Active and Recently Administered Medications Times are shown in PSYCHOLOGIST CHIEF. Scheduled Medication Order 06/24/2023 06/25/2023 06/26/2023 aspirin enteric coated tablet 81 mg 81 mg, oral, Daily, First dose on 06/24/23 at 1552, Do not crush, chew, cut, dissolve, open or otherwise manipulate tablet/capsule. 1950 (Not Given - Provider: Mi Liu RN - Reason: Patient/family refused) 0941 (Given - Provider: Malena Jasso RN) 0923 (Given - Provider: Barbie Araiza RN) carvediloL (COREG) tablet 6.25 mg 6.25 mg, oral, 2 times daily with meals (bkfst, dinner), First dose on 06/24/23 at 1800 1803 (Given - Provider: Mi Liu RN) 1100 (Not Given - Provider: Malena Jasso RN - Reason: Contraindicated)1806 (Given - Provider: Malena Jasso RN) 0922 (Given - Provider: Barbie Araiza RN) cetirizine (ZyrTEC) tablet 5 mg 5 mg, oral, Nightly, First dose on 06/24/23 at 2100 2044 (Given - Provider: Orquidea Banks, XU) 2144 (Given - Provider: Orquidea Banks RN) cholecalciferol (VITAMIN D-3) tablet 2,000 Units 2,000 Units, oral, Daily, First dose on 06/24/23 at 1609, Each tablet contains 1,000 units (25 mcg) of cholecalciferol. 1802 (Not Given - Provider: Mi Liu RN - Reason: Patient/family refused) 0941 (Given - Provider: Malena Jasso RN) 0922 (Given - Provider: Barbie Araiza RN) empagliflozin (JARDIANCE) tablet 10 mg 10 mg, oral, Daily, First dose on 06/24/23 at 1609, I /authorizing provider attest that the patient meets the approved [facility] Use Criteria: Yes, Approving Provider: GEOVANNA Hair-, Indications: Heart Failure 1951 (Not Given - Provider: Mi Liu RN - Reason: Patient/family refused) 1100 (Not Given - Provider: Malena Jasso RN - Reason: Contraindicated - Comment: MD graham) 0922 (Given - Provider: Barbie Araiza RN) fluticasone furoate-vilanteroL (BREO ELLIPTA) 100-25 mcg/dose inhaler 1 puff 1 puff, inhalation, Daily (correspondence specialist), First dose on 06/24/23 at 1609 1609 (Due) 1020 (Given - Provider: Jadon Win, ASSOCIATE PROGRAMMER) 0921 (Given - Provider: Nimisha Bardales, ASSOCIATE PROGRAMMER) furosemide (LASIX) 10 mg/mL injection 40 mg (COMPLETED) 40 mg, intravenous, Once, On 06/24/23 at 1444, For 1 dose, Room temperature only 1506 (Given - Provider: Niyah Rivas, XU) furosemide (LASIX) 10 mg/mL injection 40 mg (CANCELED) 40 mg, intravenous, Every 12 hours scheduled, First dose on 06/24/23 at 2100, Room temperature only 2043 (Given - Provider: Orquidea Banks RN) 1404 (Not Given - Provider: Malena Jasso RN - Reason: Order Discontinued - Comment: held by provider this am) furosemide (LASIX) tablet 40 mg 40 mg, oral, 2 times daily (for diuretics), First dose on 06/25/23 at 1600 1614 (Given - Provider: Malena Jasso RN) 0923 (Given - Provider: Barbie Araiza RN) gabapentin (NEURONTIN) capsule 300 mg 300 mg, oral, Nightly, First dose on 06/24/23 at 2100 2043 (Given - Provider: Orquidea Banks RN) 214 (Given - Provider: Orquidea Banks RN) ipratropium-albuteroL (DUO-NEB) 0.5-2.5 mg/3 mL nebulizer solution 3 mL 3 mL, nebulization, Every 6 hours while awake (correspondence specialist), First dose on 06/24/23 at 1552, Indications: Chronic Obstructive Pulmonary Disease with Bronchospasms 1616 (Given - Provider: Jackson Leija, ASSOCIATE PROGRAMMER)2139 (Given - Provider: Mira Milligan, ASSOCIATE PROGRAMMER) 1020 (Given - Provider: Jadon Win, ASSOCIATE PROGRAMMER)1601 (Given - Provider: Jadon Win, ASSOCIATE PROGRAMMER) 0007 (Given - Provider: Katarzyna Morgan, ASSOCIATE PROGRAMMER)0921 (Given - Provider: Nimisha Bardales, ASSOCIATE PROGRAMMER)1520 (Not Given - Provider: Yenifer Lei, ASSOCIATE PROGRAMMER - Reason: Other - Comment: Pt discharged) methylPREDNISolone sodium succinate (SOLU-medrol) preservative free injection 40 mg 40 mg, intravenous, Administer over 3 Minutes, Every 12 hours scheduled, First dose on 06/25/23 at 1300, Administer 125 mg or less over 3 minutes 1613 (Given - Provider: Malena Jasso RN)2145 (Given - Provider: Orquidea Banks RN) 0923 (Given - Provider: Barbie Araiza RN) metOLazone (ZAROXOLYN) tablet 2.5 mg 2.5 mg, oral, Every other day, First dose on 06/25/23 at 0900 0941 (Given - Provider: Malena Jasso RN) pantoprazole DR (PROTONIX) extended release tablet 40 mg 40 mg, oral, Daily, First dose on 06/24/23 at 1609, Do not crush, chew, cut, dissolve, open or otherwise manipulate tablet/capsule., Indications: Treatment of Non-Bleeding Gastric Disorder 1802 (Not Given - Provider: Mi Liu RN - Reason: Resident/resident sales representative consultant refused - education provided) 940 (Given - Provider: Malena Jasso RN) 09 (Given - Provider: Barbie Araiza RN) potassium chloride ER (KLOR-CON) extended release tablet 20 mEq 20 mEq, oral, Daily, First dose on 06/24/23 at 1609, Do not crush, chew, cut, dissolve, open or otherwise manipulate tablet/capsule. 1951 (Not Given - Provider: Mi Liu RN - Reason: Order parameters not met) 09 (Given - Provider: Malena Jasso RN) 09 (Given - Provider: Barbie Araiza RN) potassium chloride ER (KLOR-CON) extended release tablet 40 mEq (COMPLETED) 40 mEq, oral, Once, On 06/24/23 at 1232, For 1 dose, Tablets should not be crushed, chewed, dissolved, or otherwise manipulated. Capsules may be opened and sprinkled on a spoonful of applesauce or pudding, but the contents of the capsule should not be crushed or chewed. 150 (Given - Provider: Niyah Rivas RN) pramipexole (MIRAPEX) tablet 0.5 mg (CANCELED) 0.5 mg, oral, 2 times daily, First dose on 06/24/23 at 2100, Indications: Idiopathic Parkinsonism, Restless Legs Syndrome 2046 (Given - Provider: Orquidea Banks RN) 1824 (Not Given - Provider: Malena Jasso RN - Reason: Order Discontinued) pramipexole (MIRAPEX) tablet 0.5 mg 0.5 mg, oral, 2 times daily, First dose (after last modification) on 06/25/23 at 2100, At noon and 2100 , Indications: Idiopathic Parkinsonism, Restless Legs Syndrome 2144 (Given - Provider: Orquidea Banks, XU) 1200 (Due) pramipexole (MIRAPEX) tablet 0.5 mg (COMPLETED) 0.5 mg, oral, Once, On 06/25/23 at 1245, For 1 dose 1614 (Given - Provider: Malena Jasso, XU) rivaroxaban (XARELTO) tablet 15 mg 15 mg, oral, Daily with dinner, First dose (after last modification) on 06/25/23 at 1800, Nurse to discontinue heparin infusion order and associated bolus at first administration of rivaroxaban using 'order condition met' order source. If patient is eating, administer doses of 15 mg or greater with food. If patient is not eating, still administer dose unless instructed differently by provider. , Indications: atrial fibrillation 1806 (Given - Provider: Malena Jasso, XU) PRN Medication Order 06/24/2023 06/25/2023 06/26/2023 acetaminophen (TYLENOL) tablet 1,000 mg 1,000 mg, oral, Every 6 hours PRN, fever, headaches, Starting on 06/24/23 at 2258 albuterol HFA (PROVENTIL HFA,VENTOLIN HFA,PROAIR HFA) 90 mcg/actuation inhaler 2 puff 2 puff, inhalation, Every 6 hours PRN (correspondence specialist), wheezing, shortness of breath, Starting on 06/24/23 at 1847 benzonatate (TESSALON) capsule 200 mg 200 mg, oral, 3 times daily PRN, cough, Starting on 06/25/23 at 1206, Do not crush, chew, cut, dissolve, open or otherwise manipulate tablet/capsule., Indications: Cough dextromethorphan-guaiFENes in (ROBITUSSIN-DM) 2-20 mg/mL syrup 10 mL 10 mL, oral, 4 times daily PRN, cough, Starting on 06/24/23 at 2248 2337 (Given - Provider: Orquidea Banks RN) 0962 (Given - Provider: Malena Jasso, XU) guaiFENesin (ROBITUSSIN) 20 mg/mL oral liquid 200 mg 200 mg, oral, Every 4 hours PRN, cough, congestion, Starting on 06/25/23 at 1224 1614 (Not Given - Provider: Malena Jasso RN - Reason: Patient/family refused)1621 (Given - Provider: Malena Jasso RN) polyethylene glycol (MIRALAX) packet 17 g 17 g, oral, Daily PRN, constipation, Starting on 06/24/23 at 1608, Indications: constipation propranoloL (INDERAL) tablet 20 mg 20 mg, oral, 2 times daily PRN, Tremor, Starting on 06/24/23 at 1608 ramelteon (ROZEREM) tablet 8 mg 8 mg, oral, Nightly PRN, sleep, Starting on 06/24/23 at 2258, Indications: Sleep-Onset Insomnia 2337 (Given - Provider: Orquidea Banks RN) documented in this encounter Orders Medications Ordered That Alhaji ht Not Have Been Administered Count Last Ordered Date First Ordered Date benzonatate (TESSALON) capsule 200 mg 1 12/2023 acetaminophen (TYLENOL) tablet 1,000 mg 1 0 06/24/2023 albuterol HFA (PROVENTIL HFA ,VENTOLIN HFA,PROAIR HFA) 90 mcg/actuation inhaler 2 puff 2 06/24/2023 polyethylene glycol (MIRALAX) packet 17 g 1 06/24/2023 potassium chloride ER (KLOR- CON) extended release tablet 40 mEq 1 06/24/2023 propranoloL (INDERAL) tablet 20 mg 1 2023 rivaroxaban (XARELTO) tablet 20 mg 1 2023 Diet Count Last Ordered Date First Orde red Date ADULT DISCHARGE DIET 1 06/26/2023 Nursing Count Last Ordered Date First Orde red Date DISCHARGE ACTIVITY 1 06/26/2023 DISCHARGE CALL PROVIDER 4 06/26/2023 DISCHARGE INSTRUCTIONS 2 06/26/2023 FOLLOW UP WITH ESTABLISHED PROVIDER 1 06/26 TELEMETRY MONITORING 2 06/25/2023 024 ACTIVITY 1 06/24/2023 MISCELLANEOUS NURSING CARE ORDER (SPECIFY) 1 06/24/2023 NOTIFY PROVIDER (SPECIFY) 1 06/24/2023 WEIGH PATIENT 1 06/24/2023 Isolation Count Last Ordered Date First Orde red Date INITIATE AIRBORNE ISOLATION 1 06/24/2023 INITIATE CONTACT ISOLATION 1 06/24/2023 INITIATE DROPLET ISOLATION 1 06/24/2023 IV Count Last Ordered Date First Orde red Date SALINE LOCK IV 1 06/24/2023 Admission Count Last Ordered Date First Orde red Date ADMIT TO INPATIENT 1 06/24/2023 Discharge Count Last Ordered Date First Orde red Date DISCHARGE PATIENT 1 06/26/2023 CORE MEASURES Count Last Ordered Date First Ord ered Date REASON FOR NO VTE PROPHYLAXIS AT ADMISSION 1 06/24/2023 documented in this encounter Additional Health Concerns Infection Onset Date Last Indicated Resolved Time COVID: Suspected 06/24/2023 06/24/2023 06/24/2023 12:46 PM PSYCHOLOGIST CHIEF documented as of this encounter Care Teams Fish Farmer Relationship Specialty Start Date End Date Pepper Morgan MD PCP - General 09/16/16 Hank Garibay MD [address] [facility] [address] [place] [address] Surgeon Orthopedic Surgery 03/27/17 Jacky Murry MD [address] [facility] [address] [place] [address] Ophthalmology 03/27/17 Puma Mckenzie MD [address] [facility] [address] [place] [address] Surgeon Orthopedic Surgery 07/11/19 Neha Jackson, PT Physical Therapist Physical Therapy 12/01/21 Stalin Arauz MD [address] [facility] [address] [place] [address] Consulting Physician Cardiology 12/08/22 Tiffany Rojas PA [address] [facility] [place] [address] Gastroenterology 12/30/22 Klaus Deshpande MD [address] [facility] [address] [place] [address] Consulting Physician Neurology 06/13/23 documented as of this encounter
--- OUTSIDE RECORDS SUMMARY | 2024-06-18 18:51 | XMS_ITS | Encounter Summary ---
Author Organization [facility] Address [address] [place] [address] Care Team Providers Care Steelworker Name Role Phone Pepper Morgan MD Primary Care Provider + [phone] Hank Garibay MD Unavailable [phone] Jacky Murry MD Unavailable [phone] Puma Mckenzie MD Unavailable [phone] Neha Jackson PT Unavailable Unavailable Stalin Arauz MD Unavailable [phone] Tiffany Rojas Unavailable [phone] Klaus Deshpande MD Unavailable [phone] Encounter Details Date Type Department Care Team (Late st Contact Info) Description 07/11/2023 Telephone Yaak Job Service Specialist at [address] [place] [phone] Hai Dalton MA Social History Tobacco Use [...] attend chur ch or mosque services? Never 12/29/2022 Do you belong to [...] slept in a intermediate (including now)? No 12/29/2022 Personal Safety Answer Date Recorded Getting School Help Needed Denies 05/29 Comments No Sex and Gender Information Value Date Recorded Sex Assigned at Not on file Legal Sex Female 4:33 AM FAITH DOCTOR Gender Identity Not on file Sexual Orientation Not on file Occupation Industry Job Start Date Job End Date retired Not on file Not on file Not on file documented as of this encounter Miscellaneous Notes * Telephone Encounter - Hai Dalton MA - 07/13/2023 12:47 PM CST Patient advised H DOCTOR * Telephone Encounter - Hai Dalton MA - 07/12/2023 2:43 PM CST Patients states weight has not changed today. States that even after Lasix 40mg and metolazone 5mg she has not urinated very much at all. H DOCTOR * Telephone Encounter - Hai Dalton MA - 07/12/2023 2:17 PM CST Patient advised of metolazone dose change and getting labs. She states that this morning her BP was90/50's then went up 102/?. Before meds. She states that she feels dizzy and tired. She did eat lunch and states it has come up some. Please advise H DOCTOR * Telephone Encounter - Hai Dalton MA - 07/12/2023 10:06 AM CST # busy H DOCTOR * Telephone Encounter - Hai Dalton MA - 07/11/2023 12:51 PM CST [id number] H DOCTOR * Telephone Encounter - Hai Dalton MA - 07/11/2023 10:22 AM CST [id number] H DOCTOR * Telephone Encounter - Hai Dalton MA - 07/11/2023 8:07 AM CST Patient called stating she gained 6lbs since yesterday. She is on Lasix 40mg BID and metolazone 2.5mg every other day. She is going to try to go today to get her labs done that were supposed to be done yesterday. H DOCTOR documented in this encounter Plan of Treatment [...] on filedocumented in this encounter Care Teams Steelworker Relationship Specialty Start Date End Date Pepper Morgan MD PCP - General 09/16/16 Hank Garibay MD [address] [place] [address] [address] [address] Surgeon Orthopedic Surgery 03/27/17 Jacky Murry MD [address] [place] [address] [address] [facility] [address] [place] [address] Ophthalmology 03/27/17 Puma Mckenzie MD [address] [facility] [address] [facility] [address] [place] [address] Surgeon Orthopedic Surgery 07/11/19 Neha Jackson, PT Physical Therapist Physical Therapy 12/01/21 Stalin Arauz MD [address] [facility] [address] [place] [address] Consulting Physician Cardiology 12/08/22 Tiffany Rojas PA [address] [facility] [address] [place] [address] Gastroenterology 12/30/22 Klaus Deshpande MD [address] [facility] [address] [place] [address] Consulting Physician Neurology 06/13/23 documented as of this encounter
--- OUTSIDE RECORDS SUMMARY | 2024-06-18 18:51 | XMS_ITS | Encounter Summary ---
Author Organization [facility] Address [address] [place] [address] Care Team Providers Care Intake Assessor Name Role Phone Pepper Morgan MD Primary Care Provider + [phone] Hank Garibay MD Unavailable [phone] Jacky Murry MD Unavailable [phone] Puma Mckenzie MD Unavailable [phone] Neha Jackson PT Unavailable Unavailable Stalin Arauz MD Unavailable [phone] Tiffany Rojas PA Unavailable [phone] Klaus Deshpande MD Unavailable [phone] Reason for Visit * Reason Comments Hypotension Hypotension, SOB, Wh eezing, thinks she is full of fluids Encounter Details Date Type Department Care Team (Late st Contact Info) Description 06/13/2023 9:30 AM MEAT PUMPER Office Visit [facility] [address] [place] [phone] Sabine Dasilva, NOEL [address] [id number] SOBOE (shortness of breath on exertion) (Primary Dx); Chronic heart failure with preserved ejection fraction (CMS/HCC) (HCC); 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; Mild persistent asthma, unspecified whether complicated Social History Tobacco Use Types Packs/Day Years [...] often do you attend chur ch or methodist services? Never 12/29/2022 Do you belong to any clubs o r organizations such as confucianism groups, unions, fraternal or athletic groups, or [...] [place] [facility] (including now)? No 12/29/2022 Personal Safety Answer Date Recorded Getting School Help Needed Denies 05/29 Comments No Sex and Gender Information Value Date Recorded Sex Assigned at Not on file Legal Sex Female 4:33 AM MEAT PUMPER Gender Identity Not on file Sexual Orientation Not on file Occupation Industry Job Start Date Job End Date retired Not on file Not on file Not on file documented as of this encounter Last Filed Vital Signs Vital Sign Reading Time Taken Comments Blood Pressure 112/62 06/13/2023 9:15 AM MEAT PUMPER Pulse 56 06/13/2023 9:15 AM MEAT PUMPER Temperature 37.2 ??C (98.9 ??F) 06/13/2023 9:15 AM CS T Respiratory Rate 20 06/13/2023 9:15 AM MEAT PUMPER Oxygen Saturation 96% 06/13/2023 9:15 AM MEAT PUMPER Inhaled Oxygen Concentration - - Weight 91.8 kg (202 lb 6.4 oz) 06/13/2023 9:15 A M MEAT PUMPER Height 152.4 cm (5') 06/13/2023 9:15 AM MEAT PUMPER Body Mass Index 39.53 06/13/2023 9:15 AM MEAT PUMPER documented in this encounter Ordered Prescriptions Prescription Sig Dispense Quantity Refills Last Filled Start Date End Date albuterol HFA (Proventil HFA) 90 mcg/actuation inhalerIndications :Mild persistent asthma, unspecified whether complicated Inhale 2 puffs every 6 (six) hours as needed for wheezing or shortness of breath 6.7 g 3 06/13/2023 documented in this encounter Progress Notes * Sabine Dasilva, SENIOR PRODUCER - 06/13/2023 9:30 AM CST Images from the original note were not included. Patient ID: Tess Benedict is a 87 y.o. female. Chief Complaint. Chief Complaint Patient presents with Hypotension Hypotension, SOB, Wheezing, thinks she is full of fluids HPI. Patient is a 87 y.o. female HPI Presents with daughter c/o hypotension, SOBOE and wheezing worse in the last week. Gained 7 lbs in last week. Has been holding her felodipine in the last week, taking advair BID and using albuterol every 6 hours. Doesn't think jardiance has helped. BP since starting 2 weeks ago. BP running 100-110sover 70s, did not record heart rate. Takes Propranolol for tremors. 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 CHF (congestive heart failure) (CMS/HCC) ([facility]) Cough DVT (deep venous thrombosis) ([facility]) ([facility]) 1976 upper left arm near elbow--- Fibrocystic [...] Cell Tobacco use 1-2ppd x 35yrs quit Current Medications: Outpatient Encounter Medications as of 06/13/2023 Medication Sig Dispense Refill albuterol HFA (Proventil [...] 2 (two) times a day 90tablet 3 [DISCONTINUED] albuterol HFA (Proventil HFA) 90 mcg/actuation inhaler Inhale 2 puffs every 6 (six) hours as needed for wheezing or shortness of breath 6.7 g 3 [DISCONTINUED] cephalexin (KEFLEX) 250 mg capsule TAKE 1 CAPSULE BY MOUTH THREE TIMES A DAY FOR 10 DAYS [DISCONTINUED] cyclobenzaprine (FLEXERIL) 10 mg tablet Take 1 tablet (10 mg total) by mouth nightlyas needed for muscle spasms 30 tablet 0 No facility-administered encounter medications on file as of 06/13/2023. Medications Discontinued During This Encounter Medication Reason albuterol HFA (Proventil HFA) 90 mcg/actuation inhaler Reorder cephalexin (KEFLEX) 250 mg capsule Therapy completed Allergies Allergies Allergen Reactions Celecoxib Anaphylaxis Scopolamine Mental status changes Delirium postop after joint replacement due to this medicine Sulfa (Sulfonamide Antibiotics) Anaphylaxis Amlodipine Swelling Lisinopril Swelling Trazodone Swelling Tongue Cipro [Ciprofloxacin Hcl] Vomiting Cymbalta [Duloxetine] Fatigue Sleepiness, tiredness possibly related to 20 mg morning dose of this medicine discontinued 11/30/2020 Sinemet [Carbidopa-Levodopa] Other (See comments) Night hines Immunizations Immunization History Administered Date(s) Administered COVID-19 mRNA [id number] (Coherent Path) 0.3 mL (30 mcg) vaccine (12 years and up) DOSS 03/24/2023 Influenza, Quad, Adjuvantated, Intramuscular 03/10/2022 Influenza, Quadrivalent, High Dose, Preservative Free, Intrr 03/31/2020, 04/13/2021 Influenza, Quadrivalent, Split, Intramuscular 03/28/2016, 04/04/2017 Influenza, Split 05/18/2012 Influenza, Trivalent, Adjuvanted, Intramuscular 04/17/2019 Influenza, Trivalent, High Dose, Split, Preservative Free, Intramuscular 03/23/2015, 03/12/2018, 04/17/2019 Influenza, Trivalent, Intramuscular 03/25/2014, 04/17/2015 Influenza, Unspecified 03/13/2018, 03/19/2021, 03/10/2022, 03/24/2023 [place] SARS-CoV-2 Monovalent Vaccination (12+ Yrs) DOSS-READY TO USE 01/11/2022 Pfizer SARS-CoV-2 Monovalent Vaccination (12+ Yrs) PURPLE 08/15/2020, 09/06/2020, 03/14/2021 Pfizer Sars-Cov-2 Bivalent Vaccination (12+ YRS) 04/01/2022 Pneumococcal Conjugate PCV 13 02/18/2015 Pneumococcal Polysaccharide PPV23 05/17/2002, 04/26/2016 Tdap 05/18/2011, 08/23/2021 ZOSTER Recombinant 12/02/2020, 02/23/2021 Review of Systems Constitutional: Negative for chills, fatigue and fever. HENT: Negative for congestion, ear pain, rhinorrhea, sinus pain, sneezing and sore throat. Eyes: Negative for visual disturbance. Respiratory: Positive for chest tightness, shortness of breath (on exertion) and wheezing. Negativefor cough and stridor. Cardiovascular: Negative for chest pain, palpitations and leg swelling. Gastrointestinal: Negative for abdominal pain, constipation, diarrhea, nausea and vomiting. Genitourinary: Negative for decreased urine volume and difficulty urinating. Musculoskeletal: Negative for arthralgias and myalgias. Skin: Negative for color change. Neurological: Negative for dizziness, syncope, weakness and headaches. Psychiatric/Behavioral: Negative for dysphoric mood and sleep disturbance. The patient is not nervous/anxious. BP 112/62 Pulse 56 Temp 37.2 ??C (98.9 ??F) Resp 20 Ht 152.4 cm (5') Wt 91.8 kg (202 lb 6.4 oz) LMP (LMP Unknown) SpO2 96% BMI 39.53 kg/m?? Body mass index is 39.53 kg/m??. Physical Exam Vitals and nursing note reviewed. Constitutional: General: She is not in acute distress. Appearance: Normal appearance. She is not ill-appearing. HENT: Head: Normocephalic and atraumatic. Mouth/Throat: Mouth: Mucous membranes are moist. Pharynx: Oropharynx is clear. Eyes: Conjunctiva/sclera: Conjunctivae normal. Pupils: Pupils are equal, round, and reactive to light. Neck: Vascular: No carotid bruit. Cardiovascular: Rate and Rhythm: Normal rate and regular rhythm. Pulses: Normal pulses. Heart sounds: Normal heart sounds. No murmur heard. No gallop. Pulmonary: Effort: Pulmonary effort is normal. No respiratory distress. Breath sounds: No wheezing or rhonchi. Comments: Mild SOBOE with walking into exam room , resolved quickly with rest. Chest: Chest wall: No tenderness. Abdominal: General: There is no distension. Palpations: Abdomen is soft. There is no mass. Tenderness: There is no abdominal tenderness. Musculoskeletal: General: Normal range of motion. Cervical back: Normal range of motion. No rigidity. Right lower leg: Edema (trace, no color or temp changes) present. Left lower leg: Edema (trace, no color or temp changes) present. Skin: General: Skin is warm and dry. Neurological: General: No focal deficit present. Mental Status: She is alert and oriented to person, place, and time. Psychiatric: Mood and Affect: Mood normal. Behavior: Behavior normal. Office Visit on 06/07/2023 Component Date Value [...] 05/08/2023 1-5 Bacteria, ur 05/08/2023 Trace (A) Assessment & Plan: Diagnoses and all orders for this visit: SOBOE (shortness of breath on exertion) (Primary) Assessment & Plan: More likely due to CHF and 7 lb weight gain in 1 week than COPD, see plan below. No acute findings on exam, lungs clear. Chronic heart failure with preserved ejection fraction (CMS/HCC) ([facility]) Assessment & Plan: BP soft but stable [...] Call with update next week. ADDENDUM: Dr. Davonte leos with metolazone daily, repeat BMP and BnP in 2 days. 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 Assessment & Plan: BP soft [...] Call with update next week. ADDENDUM: Dr. Davonte leos with metolazone daily, repeat BMP and BnP in 2 days. Mild persistent asthma, unspecified whether complicated - albuterol HFA (Proventil HFA) 90 mcg/actuation inhaler; Inhale 2 puffs every 6 (six) hours as needed for wheezing or shortness of breath Return in about 30 days (around 07/13/2023), or if symptoms worsen or fail to improve, for Next scheduled follow up. Sabine Dasilva NP Cosigned by Pepper Morgan MD at 06/13/2023 9:05 PM MEAT PUMPER PUMPER PUMPER documented in this encounter Miscellaneous Notes * Assessment & Plan Note - Sabine Dasilva NP - 06/13/2023 7:53 PM MEAT PUMPER Associated Problem(s): Mild persistent asthma Controlled on advair and albuterol. No acute findings on exam, lungs clear. Will refill albuterol in office today. PUMPER * Assessment & Plan Note - Sabine Dasilva NP - 06/13/2023 7:51 PM MEAT PUMPER Associated Problem(s): Shortness of breath More likely due to CHF and 7 lb weight gain in 1 week than COPD, see plan below. No acute findings on exam, lungs clear. PUMPER PUMPER * Assessment & Plan Note - Sabine Dasilva NP - 06/13/2023 7:50 PM MEAT PUMPER Associated Problem(s): Acute on chronic heart failure with preserved ejection fraction (CMS/HCC) (HCC) BP soft but stable in office today [...] repeat BMP and BnP in 2 days. PUMPER * Assessment & Plan Note - Sabine Dasilva NP - 06/13/2023 7:36 PM MEAT PUMPER Associated Problem(s): 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 BP soft but stable in office today [...] repeat BMP and BnP in 2 days. PUMPER PUMPER documented in this encounter Plan of Treatment [...] as of this encounter Visit Diagnoses Diagnosis SOBOE (shortness of breath on exertion)- Primary Shortness of breath Chronic heart failure with preserved ejection fraction (CMS/HCC) (HCC) 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 Essential hypertension, benign Mild persistent asthma, unspecified whether complicated documented in this encounter Discontinued Medications Medication Sig Discontinue Reason Start Date End Da te albuterol HFA (Proventil HFA) 90 mcg/actuation inhalerIndications:Mild persistent asthma, unspecified whether complicated Inhale 2 puffs every 6 (six) hours as needed for wheezing or shortness of breath Reorder 03/09/2023 06/13/2023 cephalexin (KEFLEX) 250 mg capsule TAKE 1 CAPSULE BY MOUTH THREE TIMES A DAY FOR 10 DAYS Therapy completed 05/08/2023 06/13/2023 documented as of this encounter Care Teams Intake Assessor Relationship Specialty Start Date End Date Pepper Morgan MD PCP - General 09/16/16 Hank Garibay MD [address] [facility] [address] [place] [address] Surgeon Orthopedic Surgery 03/27/17 Jacky Murry MD [address] [facility] [address] [place] [address] Ophthalmology 03/27/17 Puma Mckenzie MD [address] [facility] [address] [place] [address] Surgeon Orthopedic Surgery 07/11/19 Neha Jackson, PT Physical Therapist Physical Therapy 12/01/21 Stalin Arauz MD [address] [facility] [address] [place] [address] Consulting Physician Cardiology 12/08/22 Tiffany Rojas PA [address] [facility] [address] [place] [address] Gastroenterology 12/30/22 Klaus Deshpande MD [address] [facility] [address] [place] [address] Consulting Physician Neurology 06/13/23 documented as of this encounter
--- OUTSIDE RECORDS SUMMARY | 2024-06-18 18:51 | XMS_ITS | Encounter Summary ---
Author Organization [facility] Address [address] [place] [address] Care Team Providers Care Rehab Director Occupational Therapist Name Role Phone Pepper Morgan MD Primary Care Provider [phone] Hank Garibay MD Unavailable [phone] Jacky Murry MD Unavailable [phone] Puma Mckenzie MD Unavailable [phone] Neha Jackson PT Unavailable Unavailable Stalin Arauz MD Unavailable [phone] Tiffnay Rojas Unavailable [phone] Klaus Deshpande MD Unavailable [phone] Encounter Details Date Type Department Care Team (Late st Contact Info) Description 06/20/2023 Telephone [facility] [address] [place] [phone] Pepper Morgan MD [address] [place] [...] attend chur ch or restorationist services? Never 12/29/2022 Do you belong to [...] slept in a chcf (including now)? No 12/29/2022 Personal Safety Answer Date Recorded Getting School Help Needed Denies 05/29 Comments No Sex and Gender Information Value Date Recorded Sex Assigned at Not on file Legal Sex Female 4:33 AM RISK AND COMPLIANCE ANALYTICS DIRECTOR Gender Identity Not on file Sexual Orientation Not on file Occupation Industry Job Start Date Job End Date retired Not on file Not on file Not on file documented as of this encounter Ordered Prescriptions Prescription Sig Dispense Quantity Refills Last Filled Start Date End Date pantoprazole DR (PROTONIX) 40 mg EC tabletIndications: Treatment of Non-Bleeding Gastric Disorder Take 1 tablet (40 mg total) by mouth daily 30 tablet 1 06/20/2023 07/13/2023 documented in this encounter Miscellaneous Notes * Telephone Encounter - Lacie Alicea MA - 06/20/2023 9:16 AM RISK AND COMPLIANCE ANALYTICS DIRECTOR Refill sent to the pharmacy. [employer] sales promotion director AND COMPLIANCE ANALYTICS DIRECTOR * Telephone Encounter - Corazon Sullivan - 06/20/2023 8:16 AM CST Needs refill on Pantprazole Send refill to [facility] AND COMPLIANCE ANALYTICS DIRECTOR documented in this encounter Plan of Treatment [...] Discontinue Reason Start Date End Da te pantoprazole DR (PROTONIX) 40 mg EC tabletIndications:Treatm ent of Non-Bleeding Gastric Disorder Take 1 tablet (40 mg total) by mouth daily Reorder 12/31/2022 06/20/2023 documented as of this encounter Care Teams Rehab Director Occupational Therapist Relationship Specialty Start Date End Date Pepper Morgan MD PCP - General 09/16/16 Hank Garibay MD [address] [facility] [address] [place] [address] Surgeon Orthopedic Surgery 03/27/17 Jacky Murry MD [address] [facility] [address] [place] [address] Ophthalmology 03/27/17 Puma Mckenzie MD [address] [facility] [address] [place] [address] Surgeon Orthopedic Surgery 07/11/19 Neha Jackson, PT Physical Therapist Physical Therapy 12/01/21 Stalin Arauz MD [address] [facility] [address] [place] [address] Consulting Physician Cardiology 12/08/22 Tiffany Rojas PA [address] [facility] [address] [place] [address] Gastroenterology 12/30/22 Klaus Deshpande MD [address] [facility] [address] [place] [address] Consulting Physician Neurology 06/13/23 documented as of this encounter
--- OUTSIDE RECORDS SUMMARY | 2024-06-18 18:51 | XMS_ITS | Encounter Summary ---
Author Organization [facility] Address [address] [place] [address] Care Team Providers Care Golf Manager Name Role Phone Pepper Morgan MD Primary Care Provider [phone] Hank Garibay MD Unavailable [phone] Jacky Murry MD Unavailable [phone] Puma Mckenzie MD Unavailable [phone] Neha Jackson PT Unavailable Unavailable Stalin Arauz MD Unavailable [phone] Tiffany Rojas Unavailable [phone] Klaus Deshpande MD Unavailable [phone] Reason for Visit * Reason Onset Date Comments Cough 06/21/2023 Encounter Details Date Type Department Care Team (Late st Contact Info) Description 06/21/2023 Telephone [facility] [address] [place] [phone] Pepper Morgan MD [address] [id number] Cough Social History Tobacco Use Types Packs/Day Years [...] attend chur ch or temple services? Never 12/29/2022 Do you belong to [...] on file Legal Sex Female 4:33 AM LAW FIRM ADMINISTRATOR Gender Identity Not on file Sexual Orientation Not on file Occupation Industry Job Start Date Job End Date retired Not on file Not on file Not on file documented as of this encounter Miscellaneous Notes * Telephone Encounter - Katy Lopes RN - 06/21/2023 3:21 PM LAW FIRM ADMINISTRATOR Called patient and notified her of previous message from NOEL Regalado and she voiced understanding. FIRM ADMINISTRATOR * Telephone Encounter - Sabine Dasilva NP - 06/21/2023 2:31 PM LAW FIRM ADMINISTRATOR Ok continue current plan for now, anything at all worsens she is to go back to ER. FIRM ADMINISTRATOR * Telephone Encounter - Katy Lopes RN - 06/21/2023 2:29 PM LAW FIRM ADMINISTRATOR Patient called back and spoke to Viviana to let us know her Covid test was negative. Please advise FIRM ADMINISTRATOR * Telephone Encounter - Katy Lopes RN - 06/21/2023 12:34 PM LAW FIRM ADMINISTRATOR Called patient regarding her Lasix. Patient was in the hospital and thought they told her that her Lasix was being increased. Patient said she was on 20 mg twice a day before and on discharge they gave her 40 mg daily. Reviewed her discharge paper and notified patient there is no increase per the AVS. She voiced understanding. Swelling is not worse it has gone down. She said she has gained 1 pound since yesterday. Not exerting herself so does not feel sob in that way but when she talks she is sob. Said she does not have any energy. O2 sat was 89% today and yesterday. BP is 96/66 today. Drinks a total of 6 cups of liquid a day. Patient said she started with a cough a few days ago. Advised her to do a Covid test and call back with results and she voiced understanding. Consulted with NOEL Regalado and she advised patient do her inhaler and make a f/u appt. She is not increasing Lasix. Go to ER if symptoms worsen. Patient notified and she voiced understanding. Advised her to continue monitoring her O2 sat and BPand if they decrease to go to ER also and she voiced understanding. Patient scheduled a f/u for next week. No available appt this week. FYI to NOEL Regalado. FIRM ADMINISTRATOR * Telephone Encounter - Viviana Webster - 06/21/2023 8:47 AM CST . Pt was discharged from [facility] on Monday and shew she had fluid around heart and her lasix was increased. When she got home she messed up medication and was taking less than she wassupposed to. Was to be taking 40 mg and has been taking 20 mg. Now has a cough and is coughing up phlegm at times. Wants to know if this could be heart related or maybe something else going on. Wantsa nurse to call. FIRM ADMINISTRATOR documented in this encounter Plan of Treatment [...] on filedocumented in this encounter Care Teams Golf Manager Relationship Specialty Start Date End Date Pepper Morgan MD PCP - General 09/16/16 Hnak Garibay MD [address] [facility] [address] [place] [address] Surgeon Orthopedic Surgery 03/27/17 Jacky Murry MD [address] [facility] [address] [place] [address] Ophthalmology 03/27/17 Puma Mckenzie MD [address] [facility] [address] [place] [address] Surgeon Orthopedic Surgery 07/11/19 Neha Jackson, PT Physical Therapist Physical Therapy 12/01/21 Stalin Arauz MD [address] [facility] [address] [place] [address] Consulting Physician Cardiology 12/08/22 Tiffany Rojas PA [address] [facility] [address] [place] [address] Gastroenterology 12/30/22 Klaus Deshpande MD [address] [facility] [address] [place] [address] Consulting Physician Neurology 06/13/23 documented as of this encounter
--- OUTSIDE RECORDS SUMMARY | 2024-06-18 18:51 | XMS_ITS | Encounter Summary ---
Author Organization [facility] Address [address] [place] [address] Care Team Providers Care Glass Cutter Hand Name Role Phone Pepper Morgan MD Primary Care Provider + [phone] Hank Garibay MD Unavailable [phone] Jacky Murry MD Unavailable [phone] Puma Mckenzie MD Unavailable [phone] Neha Jackson PT Unavailable Unavailable Stalin Arauz MD Unavailable [phone] Tiffany Rojas Unavailable [phone] Klaus Deshpande MD Unavailable [phone] Encounter Details Date Type Department Care Team (Late st Contact Info) Description 07/06/2023 Orders Only [facility] Housekeeper at [address] [place] [address] Maude Harris, NOEL [address] [place] [address] [address] [place] [address] Low serum potassium level (Primary Dx) Social History Tobacco Use Types [...] on file Legal Sex Female 4:33 AM DERMATOLOGIST MANAGING PARTNER Gender Identity Not on file Sexual Orientation [...] encounter Results * (ABNORMAL) Basic metabolic panel (07/11/2023 9:50 AM DERMATOLOGIST MANAGING PARTNER) Sodium 138 135 - 145 mmol/L [facility] ([place]) Potassium, pl 4.1 3.3 - 4.9 mmol/L [facility] ([place]) Chloride 99 97 - 110 mmol/L [facility] ([place]) CO2 29 22 - 32 mmol/L [facility] ([place]) Anion gap 10 2 - 15 mmol/L [facility] ([place]) BUN 30(H) 6 - 25 mg/dL [facility] ([place]) Creatinine 1.18(H) 0.60 - 1.10 mg/dL [facility] ([place]) [...] 9.5 8.5 - 10.3 mg/dL [facility] ([place]) Blood 07/11/2023 9:50 AM DERMATOLOGIST MANAGING PARTNER 07/11/2023 10:26 AM DERMATOLOGIST MANAGING PARTNER Maude Harris [facility] BLOOD ORDERABLES Fi nal Result [facility] ([place]) 1 [facility] Department [place] [address] documented in this encounter Visit Diagnoses Diagnosis Low serum potassium level- Primary documented in this encounter Care Teams Glass Cutter Hand Relationship Specialty Start Date End Date Pepper Morgan MD PCP - General 09/16/16 Hank Garibay MD [address] [facility] [address] [place] [facility] [address] [place] [address] Surgeon Orthopedic Surgery 03/27/17 Jacky Murry MD [address] [facility] [address] [place] [facility] [address] [place] [address] Ophthalmology 03/27/17 Puma Mckenzie MD [address] [facility] [address] [place] [facility] [address] [place] [address] Surgeon Orthopedic Surgery 07/11/19 Neha Jackson, PT Physical Therapist Physical Therapy 12/01/21 Stalin Arauz MD [address] [facility] [address] [place] [address] Consulting Physician Cardiology 12/08/22 Tiffany Rojas PA [address] [facility] [address] [place] [address] Gastroenterology 12/30/22 Klaus Deshpande MD [address] [facility] [address] [place] [address] Consulting Physician Neurology 06/13/23 documented as of this encounter
--- OUTSIDE RECORDS SUMMARY | 2024-06-18 18:51 | XMS_ITS | Encounter Summary ---
Author Organization [facility] Address [address] [place] [address] Care Team Providers Care Decatizer Name Role Phone Pepper Morgan MD Primary Care Provider + [phone] Hank Garibay MD Unavailable [phone] Jacky Murry MD Unavailable [phone] Puma Mckenzie MD Unavailable [phone] Neha Jackson PT Unavailable Unavailable Stalin Arauz MD Unavailable [phone] Tiffany Rojas Unavailable [phone] Klaus Deshpande MD Unavailable [phone] Encounter Details Date Type Department Care Team (Late st Contact Info) Description 06/27/2023 Telephone [place] [facility] at [address] [place] [id number] [facility] [place] Social History Tobacco Use Types Packs/Day Years [...] often do you attend chur ch or advent services? 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 Appt made and BMP ordered. R LOADER OPERATOR * Telephone Encounter - Viki Oneal MA - 06/27/2023 8:51 AM CST ----- Message from Maude Harris NP sent at 06/26/2023 9:14 AM TOWER LOADER OPERATOR ----- She is in the hospital and they are going to let her go home today. She needs BMP at the end of theweek. Make sure she gets it by Monday morning so I can review before the weekend. I would wait until tomorrow to call her. Can you also see about a hosp follow up appt when you call her? Thanks R LOADER OPERATOR documented in this encounter Plan of Treatment [...] on filedocumented in this encounter Care Teams Decatizer Relationship Specialty Start Date End Date Pepper Morgan MD PCP - General 09/16/16 Hank Garibay MD [address] [place] [address] Surgeon Orthopedic Surgery 03/27/17 Jacky Murry MD [address] [place] [facility] [address] [place] [address] Ophthalmology 03/27/17 Puma Mckenzie MD [address] [facility] [place] [address] [place] [address] Surgeon Orthopedic Surgery 07/11/19 Neha Jackson, PT Physical Therapist Physical Therapy 12/01/21 Stalin Arauz MD [address] [place] [address] Consulting Physician Cardiology 12/08/22 Tiffany Rojas PA [address] [place] [address] Gastroenterology 12/30/22 Klaus Deshpande MD [address] [place] [address] Consulting Physician Neurology 06/13/23 documented as of this encounter
--- OUTSIDE RECORDS SUMMARY | 2024-06-18 18:51 | XMS_ITS | Encounter Summary ---
Author Organization [facility] Address [address] [place] [address] Care Team Providers Care Scagliola Mechanic Name Role Phone Pepper Morgan MD Primary Care Provider [phone] Hank Garibay MD Unavailable [phone] Jacky Murry MD Unavailable [phone] Puma Mckenize MD Unavailable [phone] Neha Jackson PT Unavailable Unavailable Stalin Arauz MD Unavailable [phone] Tiffany Rojas Unavailable [phone] Klaus Deshpande MD Unavailable [phone] Encounter Details Date Type Department Care Team (Late st Contact Info) Description 07/13/2023 Telephone [facility] [address] [place] [id number] Pepper Morgan MD [address] [place] [address] Social History Tobacco Use Types Packs/Day [...] on file Legal Sex Female 4:33 AM ESTHETIC DERMATOLOGIST Gender Identity Not on file Sexual Orientation Not on file Occupation Industry Job Start Date Job End Date retired Not on file Not on file Not on file documented as of this encounter Miscellaneous Notes * Telephone Encounter - Malena Reyez RN - 07/13/2023 9:45 AM ESTHETIC DERMATOLOGIST Prior message has been noted. May anticipate completion of paperwork within 7-10 days. ETIC DERMATOLOGIST * Telephone Encounter - Palma Bucio - 07/13/2023 9:41 AM CST Pt is here to see [facility] and is asking for us to fill out paperwork for her daughter to bring her to appts Daughter name is Florinda Baires CNB#[phone], Papers are in Malena Bond mailbox Forwarding to Malena oBnd ETIC DERMATOLOGIST documented in this encounter Plan of Treatment [...] on filedocumented in this encounter Care Teams Scagliola Mechanic Relationship Specialty Start Date End Date Pepper Morgan MD PCP - General 09/16/16 Hank Garibay MD [address] [facility] [address] [place] [facility] [address] [place] [address] Surgeon Orthopedic Surgery 03/27/17 Jacky Murry MD [address] [facility] [address] [place] [facility] [address] [place] [address] Ophthalmology 03/27/17 Puma Mckenzie MD [address] [facility] [address] [place] [facility] [address] [place] [address] Surgeon Orthopedic Surgery 07/11/19 Neha Jackson, PT Physical Therapist Physical Therapy 12/01/21 Stalin Arauz MD [address] [facility] [address] [place] [address] Consulting Physician Cardiology 12/08/22 Tiffany Rojas PA [address] [facility] [address] [place] [address] Gastroenterology 12/30/22 Klaus Deshpande MD [address] [facility] [address] [place] [address] Consulting Physician Neurology 06/13/23 documented as of this encounter
--- OUTSIDE RECORDS SUMMARY | 2024-06-18 18:51 | XMS_ITS | Encounter Summary ---
Author Organization [facility] Address [address] [place] [address] Care Team Providers Care Teacher Of The Sight Impaired Name Role Phone Pepper Morgan MD Primary Care Provider + [phone] Hank Garibay MD Unavailable [phone] Jacky Murry MD Unavailable [phone] Puma Mckenzie MD Unavailable [phone] Neha Jackson PT Unavailable Unavailable Stalin Arauz MD Unavailable [phone] Tiffany Rojas Unavailable [phone] Klaus Deshpande MD Unavailable [phone] Encounter Details Date Type Department Care Team (Late st Contact Info) Description 07/18/2023 10:05 AM OENOLOGIST Lab [address] [address] Tiredness; Vitamin D deficiency; Microcytic anemia; Chronic heart failure with preserved ejection fraction [...] attend chur ch or baptism services? Never 12/29/2022 Do you belong to [...] slept in a half-way (including now)? No 12/29/2022 Personal Safety Answer Date Recorded Getting School Help Needed Denies 05/29 Comments No Sex and Gender Information Value Date Recorded Sex Assigned at Not on file Legal Sex Female 4:33 AM OENOLOGIST Gender Identity Not on file Sexual Orientation [...] Priority Date/Time Associated Diagnosis Comments EGFR Routine 07/18/2023 10:12 AM OENOLOGIST Chronic heart failure with preserved ejection fraction (CMS/HCC) (HCC) DIFFERENTIAL AUTO Routine 07/18/2023 10: 12 AM OENOLOGIST Microcytic anemia Tiredness PRO B-TYPE NATRIURETIC PEPTIDE Routine 07/18/2023 10:12 AM OENOLOGIST Chronic heart failure with preserved ejection fraction (CMS/HCC) (HCC) IRON PROFILE W/ IBC Routine 07/18/2023 1 0:12 AM OENOLOGIST Microcytic anemia Tiredness CBC WITH AUTO DIFFERENTIAL Routine 07/18/2023 10:12 AM OENOLOGIST Microcytic anemia Tiredness METHYLMALONIC ACID, SERUM Routine 07/18/2023 10:12 AM OENOLOGIST Microcytic anemia Tiredness VITAMIN D 25 HYDROXY Routine 07/18/2023 10:12 AM OENOLOGIST Tiredness Vitamin D deficiency TSH Routine 07/18/2023 10:12 AM OENOLOGIST Microcytic anemia Tiredness T4, FREE Routine 07/18/2023 10:12 AM OENOLOGIST Microcytic anemia Tiredness BASIC METABOLIC PANEL Routine 07/18/2023 10:12 AM OENOLOGIST Chronic heart failure with preserved ejection fraction (CMS/HCC) (HCC) documented in this encounter Results * eGFR (07/18/2023 10:12 AM OENOLOGIST) eGFR 41 mL/min/1. 73 m2 [facility] [...] interpretive data was last reviewed 2021. Blood 07/18/2023 10:1 2 AM OENOLOGIST 07/18/2023 10:24 AM OENOLOGIST us Stalin Arauz MD LAB BLOOD ORDERABLES Final Resu lt [facility] ([place]) 1 [facility] [place] [address] * (ABNORMAL) Differential, auto (07/18/2023 10:12 AM OENOLOGIST) Neutrophil abs 6.2 1.5 - 6.5 K/cumm [facility] ([place]) Imm gran abs 0.1 0.0 - 0.1 K/cumm [facility] ([place]) Lymphocyte abs 0.6(L) 0.8 - 3.3 K/cumm [facility] ([place]) Monocyte abs 0.6 0.2 - 0.8 K/cumm [facility] ([place]) Eosinophil abs 0.3 0.0 - 0.5 K/cumm [facility] ([place]) Basophil abs 0.0 0.0 - 0.1 K/cumm [facility] ([place]) Neutrophil pct 79.2 % [facility] ([place]) Comment: Interpretive Data Percent cell count reference ranges are not reported, since discordance with absolute values may lead to misinterpretation of CBC data. Current Interpretive Data was last revised on 2017. Imm gran pct 0.8 % [facility] ([place]) Comment: Interpretive Data Percent cell count reference ranges are not reported, since discordance with absolute values may lead to misinterpretation of CBC data. Current Interpretive Data was last revised on 2017. Lymphocyte pct 7.7 % [facility] ([place]) Comment: Interpretive Data Percent cell count reference ranges are not reported, since discordance with absolute values may lead to misinterpretation of CBC data. Current Interpretive Data was last revised on 2017. Monocyte pct 7.6 % [facility] ([place]) Comment: Interpretive Data Percent cell count reference ranges are not reported, since discordance with absolute values may lead to misinterpretation of CBC data. Current Interpretive Data was last revised on 2017. Eosinophil pct 4.2 % [facility] ([place]) Comment: Interpretive Data Percent cell count reference ranges are not reported, since discordance with absolute values may lead to misinterpretation of CBC data. Current Interpretive Data was last revised on 2017. Basophil pct 0.5 % [facility] ([place]) Comment: Interpretive Data Percent cell count reference ranges are not reported, since discordance with absolute values may lead to misinterpretation of CBC data. Current Interpretive Data was last revised on 2017. Blood 07/18/2023 10:1 2 AM OENOLOGIST 07/18/2023 10:24 AM OENOLOGIST us Pepper Morgan MD LAB BLOOD ORDERABLES Final Result [facility] ([place]) 1 [facility] [place] [address] * (ABNORMAL) Basic metabolic panel (07/18/2023 10:12 AM OENOLOGIST) Sodium 136 135 - 145 mmol/L [facility] ([place]) Potassium, pl 3.5 3.3 - 4.9 mmol/L [facility] ([place]) Chloride 98 97 - 110 mmol/L [facility] ([place]) CO2 29 22 - 32 mmol/L [facility] ([place]) Anion gap 9 2 - 15 mmol/L [facility] ([place]) BUN 30(H) 6 - 25 mg/dL [facility] ([place]) Creatinine 1.29(H) 0.60 - 1.10 mg/dL [facility] ([place]) Glucose 106 70 - 199 mg/dL [facility] ([place]) [...] Calcium 9.3 8.5 - 10.3 mg/dL [facility] ([place]) Blood 07/18/2023 10:1 2 AM OENOLOGIST 07/18/2023 10:24 AM OENOLOGIST us Stalin Arauz MD LAB BLOOD ORDERABLES Final Resu lt [facility] ([place]) [address] [facility] [place] [address] * (ABNORMAL) Pro B-type natriuretic peptide (07/18/2023 10:12 AM OENOLOGIST) NT-proBNP 6,289(H) <=450 pg/mL [facility] ([place]) Comment: Interpretive [...] Interpretive Data Last Revised Date: 2018. Blood 07/18/2023 10:1 2 AM OENOLOGIST 07/18/2023 10:24 AM OENOLOGIST us Stalin Arauz MD LAB BLOOD ORDERABLES Final Resu lt [facility] ([place]) [address] [facility] [place] [address] * (ABNORMAL) CBC with auto differential (07/18/2023 10:12 AM OENOLOGIST) WBC 7.8 3.8 - 9.9 K/cumm [facility] ([place]) Hgb 8.3(L) 11.9 - 15.5 g/dL [facility] ([place]) Hct 28.4(L) 35.6 - 45.5 % [facility] ([place]) Plt 317 150 - 400 K/cumm [facility] ([place]) MPV 9.2 9.1 - 12.3 fL [facility] ([place]) RBC 3.84(L) 3.90 - 5.20 M/cumm [facility] ([place]) MCV 74.0(L) 81.3 - 96.4 fL [facility] ([place]) MCH 21.6(L) 27.1 - 33.3 pg [facility] ([place]) MCHC 29.2(L) 32.3 - 35.7 g/dL [facility] ([place]) RDW CV 17.3(H) 11.1 - 14.9 % [facility] ([place]) RDW SD 46.1 35.7 - 48.1 fL [facility] ([place]) NRBC abs 0.00 0.00 - 0.01 K/cumm [facility] ([place]) Blood 07/18/2023 10:1 2 AM OENOLOGIST 07/18/2023 10:24 AM OENOLOGIST us Pepper Morgan MD LAB BLOOD ORDERABLES Final Result Performing Organization Address City/[facility] Co de Phone Number [facility] ([place]) 1 [facility] [place] [address] * (ABNORMAL) Iron profile w/ IBC (07/18/2023 10:12 AM OENOLOGIST) Iron 23(L) 35 - 145 mcg/dL [facility] ([place]) TIBC 399 250 - 400 mcg/dL [facility] ([place]) Transferrin saturation 6(L) 20 - 50 % [facility] ([place]) Blood 07/18/2023 10:1 2 AM OENOLOGIST 07/18/2023 10:24 AM OENOLOGIST us Pepper Morgan MD LAB BLOOD ORDERABLES Final Result Performing Organization Address [facility] de Phone Number [facility] ([place]) 1 [facility] [place] [address] * (ABNORMAL) Methylmalonic acid, serum (07/18/2023 10:12 AM OENOLOGIST) MMA 0.60(H) <=0.40 nmol/mL [facility] ([place]) Comment: In this sample, the concentration of methylmalonic acid (MMA) was minimally elevated. As the upper limit of the reference range varies in different laboratories from 0.4 to 0.6 nmol/mL. This finding could be considered normal, especially if the patient does not show other signs of vitamin B12 deficiency. ADDITIONAL INFORMATION This test was developed and its performance characteristics determined by [facility] in a manner consistent with CLIA requirements. This test has not been cleared or approved by the U.S. Food and Drug Administration. Test Performed by: [address] [address] Alterations Tailor: Cedric Perry M.D. Ph.D.; CLIA# [id number] Blood 07/18/2023 10:1 2 AM OENOLOGIST 07/18/2023 10:24 AM OENOLOGIST us Pepper Morgan MD LAB BLOOD ORDERABLES Final Result [facility] ([place]) [address] [place] [address] * T4, free (07/18/2023 10:12 AM OENOLOGIST) Pathologist [facility] Free T4 1.30 0.90 - 1.70 ng/dL [facility] ([place]) Blood 07/18/2023 10:1 2 AM OENOLOGIST 07/18/2023 10:24 AM OENOLOGIST us Pepper Morgan MD LAB BLOOD ORDERABLES Final Result Performing Organization Address City/[facility]/ZIP Co de Phone Number [facility] ([place]) 1 [facility] [place] [address] * TSH (07/18/2023 10:12 AM OENOLOGIST) Pathologist [facility] Thyroid Stimulating Hormone 3.48 0.30 - 4.20 mcIUnit/mL [facility] ([place]) Blood 07/18/2023 10:1 2 AM OENOLOGIST 07/18/2023 10:24 AM OENOLOGIST us Pepper Morgan MD LAB BLOOD ORDERABLES Final Result [facility] ([place]) [address] [place] [address] * Vitamin D 25 hydroxy (07/18/2023 10:12 AM OENOLOGIST) Vitamin D 25-OH 59 30 - 80 ng/mL [facility] ([place]) Blood 07/18/2023 10:1 2 AM OENOLOGIST 07/18/2023 10:24 AM OENOLOGIST us Pepper Morgan MD LAB BLOOD ORDERABLES Final Result [facility] ([place]) 1 [facility] [place] [address] documented in this encounter Visit Diagnoses Diagnosis Tiredness Other malaise and fatigue Vitamin D deficiency Microcytic anemia Unspecified iron deficiency anemia Chronic heart failure with preserved ejection fraction (CMS/HCC) (HCC) documented in this encounter Care Teams Teacher Of The Sight Impaired Relationship Specialty Start Date End Date Pepper Morgan MD PCP - General 09/16/16 Hank Garibay MD [address] [facility] [address] [place] [address] [place] [address] Surgeon Orthopedic Surgery 03/27/17 Jacky Murry MD [address] [facility] [place] [facility] [address] [place] [address] Ophthalmology 03/27/17 Puma Mckenzie MD [address] [facility] [facility] [address] [place] [facility] [address] [place] [address] Surgeon Orthopedic Surgery 07/11/19 Neha Jackson, PT Physical Therapist Physical Therapy 12/01/21 Stalin Arauz MD [address] [facility] [place] [address] Consulting Physician Cardiology 12/08/22 Tiffany Rojas PA [address] [facility] [address] [place] [address] Gastroenterology 12/30/22 Klaus Deshpande MD [address] [place] [address] [place] [address] Consulting Physician Neurology 06/13/23 documented as of this encounter
--- OUTSIDE RECORDS SUMMARY | 2024-06-18 18:51 | XMS_ITS | Encounter Summary ---
Author Organization [facility] Address [address] [place] [address] Care Team Providers Care Silk Screen Printing Racker Name Role Phone Pepper Morgan MD Primary Care Provider + [phone] Hank Garibay MD Unavailable [phone] Jacky Murry MD Unavailable [phone] Puma Mckenzie MD Unavailable [phone] Neha Jackson PT Unavailable Unavailable Stalin Arauz MD Unavailable [phone] Tiffany Rojas Unavailable [phone] Klaus Deshpande MD Unavailable [phone] Reason for Visit * Reason Comments Hospital Follow Up CHF/SOB on exertion Encounter Details Date Type Department Care Team (Late st Contact Info) Description 07/19/2023 12:45 PM CLOTH SHRINKING MACHINE OPERATOR Office Visit [facility] Coordinator at [address] [place] [address] Maude [place], NOEL [address] [place] [address] [address] [place] [address] Chronic atrial fibrillation (HCC) (Primary Dx); Chronic heart failure with preserved ejection fraction (CMS/HCC) (HCC); 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 Never 12/29/2022 Do you [...] file Legal Sex Female 4:33 AM CLOTH SHRINKING MACHINE OPERATOR Gender Identity Not on file Sexual Orientation Not on file Occupation Industry Job Start Date Job End Date retired Not on file Not on file Not on file documented as of this encounter Last Filed Vital Signs Vital Sign Reading Time Taken Comments Blood Pressure 100/64 07/19/2023 12:52 PM CLOTH SHRINKING MACHINE OPERATOR Pulse 70 07/19/2023 12:52 PM CLOTH SHRINKING MACHINE OPERATOR Temperature - - Respiratory Rate 18 07/19/2023 12:52 PM CLOTH SHRINKING MACHINE OPERATOR Oxygen Saturation - - Inhaled Oxygen Concentration - - Weight 88 kg (194 lb) 07/19/2023 12:52 PM CLOTH SHRINKING MACHINE OPERATOR Height 157.5 cm (5' 2 ) 07/19/2023 12:52 PM CLOTH SHRINKING MACHINE OPERATOR Body Mass Index 35.48 07/19/2023 12:52 PM CLOTH SHRINKING MACHINE OPERATOR documented in this encounter Progress Notes * Maude [place] NP - 07/19/2023 12:45 PM CST Cardiology note Reason for Office Visit: Chief Complaint Patient presents with Hospital Follow Up CHF/SOB on exertion History of Present Illness: Tess Benedict is a 87 y.o. female who presents today for new patient evaluation of peripheral artery disease. She is a history [...] or legs feeling cold. Hx of tobaccouse. No chest pain, pressure. No dizziness or syncope. No shortness of breath or REDDY. Reports she feels tired all of the time. Intermittent lower extremity edema for which she takes lasix. Limited in her walking to about 100 yrds d/t generalized fatigue and back pain Patient had bilateral arterial and venous Dopplers performed. Venous Dopplers were negative for DVT, however arterial Dopplers showed disease in the SFA. Patient then had CTA abdominal aorta and bilateral lower extremities. There is a significant amount of artifact on imaging due to bilateral kneereplacements. Underwent AIF 02/18/22 on LLE with stents [...] hospitalized for shortness of breath earlier in June. She was diagnosed with asthma exacerbation / CHF exacerbation, BNP >5,000. She was diuresed and discharged on lasix 40 mg BID. Metolazone was also increased to 5 mg every other day. She was 184 lbs when she left the hospital. She is now up to 194 lbs. She is increasingly short of breath. She can barely navigate within her home. Review of Systems Constitutional: Positive for malaise/fatigue and weight gain. Cardiovascular: Positive for dyspnea on exertion. Negative for chest pain, claudication, leg swelling, [...] 09/2008 CHF (congestive heart failure) (CMS/HCC) ([facility]) Cough DVT (deep venous thrombosis) (CMS/HCC) ([facility]) 1976 upper left arm near elbow--- [...] TOTAL HIP ARTHROPLASTY Left 11/01/2021 Dr. Mckenzie, ON LICENSE OF [facility]. Family History Problem Relation Age [...] mouth daily with lunch) 30 tablet 11 sodium chloride 0.9% 0.9% parenteral solution 250 mL with iron sucrose 100 mg/5 mL (elemental iron)solution 300 mg Infuse 300 mg into a venous catheter once for 1 dose 300mg per IV weekly x 3 total weeks. 300 mg 2 No current facility-administered medications for this visit. Vitals BP 100/64 (BP Location: Left arm, Patient Position: Sitting) Pulse 70 Resp 18 Ht 157.5 cm (5' 2 ) Wt 88 kg (194 lb) LMP (LMP Unknown) BMI 35.48 kg/m?? Vitals: 07/19/23 1252 BP: 100/64 Pulse: 70 Resp: 18 Wt Readings from Last 3 Encounters: 07/19/23 88 kg (194 lb) 07/13/23 88.5 kg (195 lb) 06/24/23 86.6 kg (191 lb) Body mass index is 35.48 kg/m??. Physical Exam Constitutional: General: She is [...] Component Value Date BILIRUBINU Negative 02/07/2017 AST 17 06/24/2023 ALT 12 06/24/2023 ALKPHOS 121 06/24/2023 ALBUMIN 3.5 06/24/2023 Lab Results Component Value Date SODIUM 136 07/18/2023 POTASSIUM 3.5 07/18/2023 CHLORIDE 98 07/18/2023 CO2 29 07/18/2023 ANIONGAP 9 07/18/2023 CK 114 11/09/2021 GLUCOSEUR 3+ (A) 06/25/2023 No results found for: BNP Lab Results Component Value Date SODIUM 136 07/18/2023 SODIUM 138 07/11/2023 SODIUM 138 07/05/2023 POTASSIUM 3.5 07/18/2023 POTASSIUM 4.1 07/11/2023 POTASSIUM 3.8 07/05/2023 CHLORIDE 98 07/18/2023 CHLORIDE 99 07/11/2023 CHLORIDE 95 (L) 07/05/2023 CO2 29 07/18/2023 CO2 29 07/11/2023 CO2 34 (H) 07/05/2023 BUNSER 30 (H) 07/18/2023 BUNSER 30 (H) 07/11/2023 BUNSER 48 (H) 07/05/2023 CREATININE 1.29 (H) 07/18/2023 CREATININE 1.18 (H) 07/11/2023 CREATININE 1.28 (H) 07/05/2023 GFRNAA 41 07/18/2023 GFRNAA 45 07/11/2023 GFRNAA 41 07/05/2023 GLUCOSE 106 07/18/2023 CALCIUM 9.3 07/18/2023 CALCIUM 9.5 07/11/2023 CALCIUM 9.5 07/05/2023 ALBUMIN 3.5 06/24/2023 ALBUMIN 3.5 06/14/2023 ALBUMIN 3.7 02/16/2023 PHOS 3.4 12/29/2022 PHOS 3.2 02/14/2017 PHOS 3.9 04/29/2014 Lab Results Component Value Date SODIUM 136 07/18/2023 POTASSIUM 3.5 07/18/2023 CHLORIDE 98 07/18/2023 CO2 29 07/18/2023 ANIONGAP 9 07/18/2023 BUNSER 30 (H) 07/18/2023 CREATININE 1.29 (H) 07/18/2023 GLUCOSE 106 07/18/2023 CALCIUM 9.3 07/18/2023 BILITOT 0.3 06/24/2023 PROT 6.8 06/24/2023 ALBUMIN 3.5 06/24/2023 ALKPHOS 121 06/24/2023 ALT 12 06/24/2023 AST 17 06/24/2023 Lab Results Component Value Date WBC 7.8 07/18/2023 HGB 8.3 (L) 07/18/2023 HCT 28.4 (L) 07/18/2023 LABPLAT 317 07/18/2023 MPV 9.2 07/18/2023 RBC 3.84 (L) 07/18/2023 MCV 74.0 (L) 07/18/2023 MCH 21.6 (L) 07/18/2023 MCHC 29.2 (L) 07/18/2023 RDWCV 17.3 (H) 07/18/2023 RDWSD 46.1 07/18/2023 NRBCABS 0.00 07/18/2023 Lab Results Component Value Date CHOL 129 06/15/2023 TRIG 71 06/15/2023 HDL 40 06/15/2023 LDLCALC 75 06/15/2023 NONHDLCHOL 89 06/15/2023 CHOLHDL 3 06/15/2023 Testing: Echocardiogram 04/2021 Normal left ventricular systolic [...] >50%). Ankle-brachial index in June 2022 1. Becv-yc-hxnvhlcd arterial insufficiency at rest in the right [...] waveform at the ankle. JONATHAN 10/24/2022 1. Xqck-qu-dbptzggn arterial insufficiency at rest in the right lower extremity with ankle-brachial index 0.69. This is essentially unchanged from prior value of 0.71 in June 2022. Biphasic waveform at the ankle. 2. Mild arterial insufficiency at rest in the left lower extremity with ankle-brachial index 0.77. This represents slight decline compared to prior value of 0.87 in June 2022. Biphasic waveform at the ankle. Diagnoses 1. Atypical leg symptoms ? Peripheral [...] on Xarelto. Normal noninvasive evaluation including echo and stress test in April 2022 3. Stenosis in abdominal aorta by CTA , not noticed on angiography 4. 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 S/p bilateral hip and knee replacement. 6. Heart failure with preserved ejection fraction. Elevated BNP however with hyponatremia Plan Reviewed labs from earlier this month and from 07/18. Renal function is holding. She is up 10 lbs since discharge from the hospital. Continue lasix 40 mg BID Increase metolazone to 5 mg daily Monitor daily weights. Watch sodium intake. She is taking aldactone although it does not appear to be on her med list, continue. 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, bilateral legs (HCC) Shortness of breath documented in this encounter Care Teams Silk Screen Printing Racker Relationship Specialty Start Date End Date Pepper Morgan MD PCP - General 09/16/16 Hank Garibay MD [address] [facility] [address] [place] [address] Surgeon Orthopedic Surgery 03/27/17 Jacky Murry MD [address] [facility] [address] [place] [address] Ophthalmology 03/27/17 Puma Mckenzie MD [address] [facility] [address] [place] [address] Surgeon Orthopedic Surgery 07/11/19 Neha Jackson, PT Physical Therapist Physical Therapy 12/01/21 Stalin Arauz MD [address] [facility] [address] [place] [address] Consulting Physician Cardiology 12/08/22 Tiffnay Rojas PA [address] [facility] [address] [place] [address] Gastroenterology 12/30/22 Klaus Deshpande MD [address] [facility] [address] [place] [address] Consulting Physician Neurology 06/13/23 documented as of this encounter
--- OUTSIDE RECORDS SUMMARY | 2024-06-18 18:51 | XMS_ITS | Encounter Summary ---
Author Organization [facility] Address [address] [place] [address] Care Team Providers Care Correctional Treatment Specialist Name Role Phone Pepper Morgan MD Primary Care Provider + [phone] Hank Garibay MD Unavailable [phone] Jacky Murry MD Unavailable [phone] Puma cMkenzie MD Unavailable [phone] Neha Jackson PT Unavailable Unavailable Stalin Arauz MD Unavailable [phone] Tiffany Rojas Unavailable [phone] Klaus Deshpande MD Unavailable [phone] Encounter Details Date Type Department Care Team (Late st Contact Info) Description 07/11/2023 9:40 AM SENIOR BENEFITS ANALYST Lab [address] [address] Low serum potassium level Social History Tobacco Use Types Packs/Day Years [...] attend chur ch or scientology services? Never 12/29/2022 Do you belong to [...] on file Legal Sex Female 4:33 AM SENIOR BENEFITS ANALYST Gender Identity Not on file Sexual [...] Priority Date/Time Associated Diagnosis Comments EGFR Routine 07/11/2023 9:50 AM SENIOR BENEFITS ANALYST Low serum potassium level BASIC METABOLIC PANEL Routine 07/11/2023 9:50 AM SENIOR BENEFITS ANALYST Low serum potassium level documented in this encounter Results * eGFR (07/11/2023 9:50 AM SENIOR BENEFITS ANALYST) eGFR 45 mL/min/1. 73 m2 [facility] Comment: [...] interpretive data was last reviewed 2021. Blood 07/11/2023 9:50 AM SENIOR BENEFITS ANALYST 07/11/2023 10:26 AM SENIOR BENEFITS ANALYST us Maude [place] NP LAB BLOOD ORDERABLES Fi nal Result [facility] 1 [facility] [place] [address] * (ABNORMAL) Basic metabolic panel (07/11/2023 9:50 AM SENIOR BENEFITS ANALYST) Sodium 138 135 - 145 mmol/L [facility] ([place] Potassium, pl 4.1 3.3 - 4.9 mmol/L [facility] ([place]) Chloride 99 97 - 110 mmol/L [facility] ([place]) CO2 29 22 - 32 mmol/L [facility] ([place]) Anion gap 10 2 - 15 mmol/L [facility] ([place] BUN 30(H) 6 - 25 mg/dL [facility] ([place]) Creatinine 1.18(H) 0.60 - 1.10 mg/dL [facility] ([place]) Glucose 95 70 - 199 mg/dL [facility] ([place] Comment: Interpretive Data Fasting glucose [...] - 10.3 mg/dL [facility] Blood 07/11/2023 9:50 AM SENIOR BENEFITS ANALYST 07/11/2023 10:26 AM SENIOR BENEFITS ANALYST Maude [place] CREDIT PORTFOLIO ADVISOR LAB BLOOD ORDERABLES Fi nal Result [facility] 1 [facility] [place] [address] documented in this encounter Visit Diagnoses Diagnosis Low serum potassium level documented in this encounter Care Teams Correctional Treatment Specialist Relationship Specialty Start Date End Date Pepper Morgan MD PCP - General 09/16/16 Hank Garibay MD [address] [facility] [address] [place] [address] Surgeon Orthopedic Surgery 03/27/17 Jacky Murry MD [address] [facility] [address] [place] [place] [address] Ophthalmology 03/27/17 Puma Mckenzie MD [address] [facility] [address] [place] [place] [address] Surgeon Orthopedic Surgery 07/11/19 Neha Jackson, PT Physical Therapist Physical Therapy 12/01/21 Stalin Arauz MD [address] [facility] [address] [place] [address] Consulting Physician Cardiology 12/08/22 Tiffany Rojas PA [address] [facility] [address] [place] [address] Gastroenterology 12/30/22 Klaus Deshpande MD [address] [facility] [address] [place] [address] Consulting Physician Neurology 06/13/23 documented as of this encounter
--- OUTSIDE RECORDS SUMMARY | 2024-06-18 18:51 | XMS_ITS | Encounter Summary ---
Author Organization [facility] Address [address] [place] [address] Care Team Providers Care Director Facilities Maintenance Name Role Phone Pepper Morgan MD Primary Care Provider + [phone] Hank Garibay MD Unavailable [phone] Jacky Murry MD Unavailable [phone] Puma Mckenzie MD Unavailable [phone] Neha Jackson PT Unavailable Unavailable Stalin Arauz MD Unavailable [phone] Tiffany Rojas Unavailable [phone] Klaus Deshpande MD Unavailable [phone] Encounter Details Date Type Department Care Team (Late st Contact Info) Description 07/18/2023 10:10 AM FINISHING RANGE SUPERVISOR Lab [address] [address] Social History Tobacco Use Types Packs/Day Years [...] attend chur ch or evangelical services? Never 12/29/2022 Do you belong to [...] on file Legal Sex Female 4:33 AM FINISHING RANGE SUPERVISOR Gender Identity Not on file Sexual [...] filedocumented in this encounter Care Teams Director Facilities Maintenance Relationship Specialty Start Date End Date Pepper Morgan MD PCP - General 09/16/16 Hank Garibay MD [address] [place] [address] Surgeon Orthopedic Surgery 03/27/17 Jacky Murry MD [address] [place] [address] Ophthalmology 03/27/17 Puma Mckenzie MD [address] [place] [address] Surgeon Orthopedic Surgery 07/11/19 Neha Jackson, PT Physical Therapist Physical Therapy 12/01/21 Stalin Arauz MD [address] [place] [address] Consulting Physician Cardiology 12/08/22 Tiffany Rojas PA [address] [place] [address] Gastroenterology 12/30/22 Klaus Deshpande MD [address] [place] [address] Consulting Physician Neurology 06/13/23 documented as of this encounter
--- OUTSIDE RECORDS SUMMARY | 2024-06-18 18:51 | XMS_ITS | Encounter Summary ---
Author Organization [facility] Address [address] [place] [address] Care Team Providers Care Clamp Truck Driver Name Role Phone Pepper Morgan MD Primary Care Provider + [phone] Hank Garibay MD Unavailable [phone] Jacky Murry MD Unavailable [phone] Puma Mckenzie MD Unavailable [phone] Neha Jackson PT Unavailable Unavailable Stalin Arauz MD Unavailable [phone] Tiffany Rojas Unavailable [phone] Klaus Deshpande MD Unavailable [phone] Encounter Details Date Type Department Care Team (Late st Contact Info) Description 06/21/2023 Telephone [place] Purchasing Contracting Clerk at [address] [place] [phone] Meryl Burgos MA Social History Tobacco Use [...] attend chur ch or yazidism services? Never 12/29/2022 Do you belong to any clubs o r organizations such as zoroastrianism groups, unions, fraternal or athletic groups, or [...] on file Legal Sex Female 4:33 AM FLOAT OPERATOR Gender Identity Not on file Sexual Orientation Not on file Occupation Industry Job Start Date Job End Date retired Not on file Not on file Not on file documented as of this encounter Miscellaneous Notes * Telephone Encounter - Hai Dalton MA - 06/21/2023 1:08 PM CST Spoke with patient this morning and told her to take the dose she was d/c on. She states she was having a lot of mucus and was going to call her PCP regarding that. I will send in refills for the Lasix 40mg BID. T OPERATOR * Telephone Encounter - Meryl Burgos MA - 06/21/2023 12:50 PM FLOAT OPERATOR Pt calling stating she was previously taking Lasix 20 mg 1 tab BID. Then she went into the hospitaland was told during d/c that Dr was increasing her Lasix. Pt states she received an Rx for Lasix 40mg 1 tab daily which is exactly what she was taking before. So pt wants to know if this was a mistake? Should it have been increased to 40 mg 1 tab BID instead? Pt states she lost 10 lbs while in thehospital but has been gaining it back fast. Pt also wants to know if increasing Lasix could cause her to cough? Please advise. T OPERATOR documented in this encounter Plan of Treatment Not on file documented as of this encounter Goals Goal Patient Goal Type Associated Problems Recent Progress Patient-Stated? Author [facility] Improving(06/ 3:34 PM CDT) No Tanisha, Domtiila Basim, RN Note: Patient will establish a comfort-function goal and identify the pain level that will allow the patient to perform desired activities and achieve an acceptable quality of life. documented as of this encounter Visit Diagnoses Not on filedocumented in this encounter Care Teams Clamp Truck Driver Relationship Specialty Start Date End Date Pepper Morgan MD PCP - General 09/16/16 Hank Garibay MD [address] [facility] [address] [place] [facility] [address] [place] [address] Surgeon Orthopedic Surgery 03/27/17 Jacky Murry MD [address] [facility] [address] [place] [place] [address] Ophthalmology 03/27/17 Puma Mckenzie MD [address] [facility] [address] [place] [address] Surgeon Orthopedic Surgery 07/11/19 Neha Jackson, PT Physical Therapist Physical Therapy 12/01/21 Stalin Arauz MD [address] [facility] [address] [place] [address] Consulting Physician Cardiology 12/08/22 Tiffany Rojas PA [address] [facility] [address] [place] [address] Gastroenterology 12/30/22 Klaus Deshpande MD [address] [facility] [address] [place] [address] Consulting Physician Neurology 06/13/23 documented as of this encounter
--- OUTSIDE RECORDS SUMMARY | 2024-06-18 18:51 | XMS_ITS | Encounter Summary ---
Author Organization [facility] Address [address] [place] [address] Care Team Providers Care Chemical Plant Technical Director Name Role Phone Pepper Morgan MD Primary Care Provider + [phone] Hank Garibay MD Unavailable [phone] Jacky Murry MD Unavailable [phone] Puma Mckenzie MD Unavailable [phone] Neha Jackson PT Unavailable Unavailable Stalin Arauz MD Unavailable [phone] Tiffany Rojas Unavailable [phone] Klaus Deshpande MD Unavailable [phone] Encounter Details Date Type Department Care Team (Late st Contact Info) Description 07/12/2023 Orders Only [place] Packing Machine Inspector at [address] [place] [address] Stalin Arauz MD [address] [place] [address] [address] [place] [address] Chronic heart failure with preserved [...] attend chur ch or restoration services? Never 12/29/2022 Do you belong to any clubs o r organizations such as anabaptist groups, unions, fraternal or athletic groups, or [...] slept in a residential (including now)? No 12/29/2022 Personal Safety Answer Date Recorded Getting School Help Needed Denies 05/29 Comments No Sex and Gender Information Value Date Recorded Sex Assigned at Not on file Legal Sex Female 4:33 AM BAT CARRIER Gender Identity Not on file Sexual Orientation [...] Results * (ABNORMAL) Pro B-type natriuretic peptide (07/18/2023 10:12 AM BAT CARRIER) NT-proBNP 6,289(H) <=450 pg/mL [facility]) [...] Date: 2018. Blood 07/18/2023 10:1 2 AM BAT CARRIER 07/18/2023 10:24 AM BAT CARRIER us Stalin Arauz MD LAB BLOOD ORDERABLES Final Resu lt [facility] ([place] 1 [facility] Department of Laboratories [place], [place] [id number] * (ABNORMAL) Basic metabolic panel (07/18/2023 10:12 AM BAT CARRIER) Sodium 136 135 - 145 mmol/L [facility] ([place]) Potassium, pl 3.5 3.3 - 4.9 mmol/L [facility] ([place]) Chloride 98 97 - 110 [...] 2022. Calcium 9.3 8.5 - 10.3 mg/dL [facility] ([place]) Blood 07/18/2023 10:1 2 AM BAT CARRIER 07/18/2023 10:24 AM BAT CARRIER Stalin Arauz MD LAB BLOOD ORDERABLES Final Resu lt [facility]) 1 [facility] Department [place] [address] documented in this encounter Visit Diagnoses Diagnosis Chronic heart failure with preserved ejection fraction (CMS/HCC) (HCC)- Primary documented in this encounter Care Teams Chemical Plant Technical Director Relationship Specialty Start Date End Date Pepper Morgan MD PCP - General 09/16/16 Hank Garibay MD [address] [place] [address] [address] [place] [address] Surgeon Orthopedic Surgery 03/27/17 Jacky Murry MD [address] [facility] [address] [place] [facility] [address] [place] [address] Ophthalmology 03/27/17 Puma Mckenzie MD [address] [facility] [address] [place] [facility] [address] [place] [address] Surgeon Orthopedic Surgery 07/11/19 Neha Jackson, PT Physical Therapist Physical Therapy 12/01/21 Stalin Arauz MD [address] [facility] [address] [place] [address] Consulting Physician Cardiology 12/08/22 Tiffany Rojas PA [address] [facility] [address] [place] [address] Gastroenterology 12/30/22 Klaus Deshpande MD [address] [place] [address] [address] [place] [address] Consulting Physician Neurology 06/13/23 documented as of this encounter
--- OUTSIDE RECORDS SUMMARY | 2024-06-18 18:51 | XMS_ITS | Encounter Summary ---
Author Organization [facility] Address [address] [place] [address] Care Team Providers Care Varnish Thinner Name Role Phone Pepper Morgan MD Primary Care Provider + [phone] Hank Garibay MD Unavailable [phone] Jacky Murry MD Unavailable [phone] Puma Mckenzie MD Unavailable [phone] Neha Jackson PT Unavailable Unavailable Stalin Arauz MD Unavailable [phone] Tiffany Rojas Unavailable [phone] Reason for Referral * Diagnostic Lab (Routine) - Pending Review Specialty Diagnoses / Procedures Referred By Contac t Referred To Contact Lab Diagnoses Hematuria, gross Procedures Cytology Ana Bernal, ACCOUNTING MACHINE OPERATOR [address] [facility] [address] [place] [address] Phone: tel: fax: Referral ID Status Reason Start Date Expiration Date V isits Requested Visits Authorized [id number] Pending Review 06/07/2023 07/06/2024 1 1 TING PRESS OPERATOR APPRENTICE Encounter Details Date Type Department Care Team (Latest Contact Info) Description 06/07/2023 11:30 AM PRINTING PRESS OPERATOR APPRENTICE - 06/07/2023 11:59 PM PRINTING PRESS OPERATOR APPRENTICE Hospital Encounter [facility] [address] [place] [address] Hematuria, gross Discharge Disposition: Discharge to home or self [...] How often do you attend chur or yazidism services? Never 12/29/2022 Do you [...] on file Legal Sex Female 4:33 AM PRINTING PRESS OPERATOR APPRENTICE Gender Identity Not on file Sexual Orientation Not on file Occupation Industry Job Start Date Job End Date retired Not on file Not on file Not on file documented as of this encounter Medications at Time of Discharge cetirizine (ZyrTEC) 10 mg tabletIndications :Angioedema, subsequent encounter Take 1 tablet (10 mg total) by mouth nightly 90 tablet 3 12/08/2022 cholecalciferol (VITAMIN D-3) 2000 unit tablet Take 1 tablet (2,000 Units total) by mouth daily albuterol HFA (Proventil HFA) 90 mcg/actuation inhalerIndication s:Mild persistent asthma, unspecified whether complicated Inhale 2 puffs every 6 (six) hours as needed for wheezing or shortness of breath 6.7 g 3 03/09/2023 3 aspirin 81 mg enteric coated tablet Take 1 tablet (81 mg total) by mouth daily 4 cephalexin (KEFLEX) 250 mg capsule TAKE 1 CAPSULE BY MOUTH THREE TIMES A DAY FOR 10 DAYS 05/08/2023 3 clonazePAM (KlonoPIN) 0.5 mg tabletIndications :Restless legs [...] 1 each 4 03/09/2023 4 furosemide (LASIX) 20 mg tablet Take 1 tablet (20 mg total) by mouth 2 (two) times a day 180 tablet 3 02/21/2023 3 gabapentin (NEURONTIN) 300 mg capsuleIndication s:Restless legs syndrome Take 1 capsule (300 mg total) by mouth 3 (three) times a day 90 capsule 04/21/2023 3 metOLazone (ZAROXOLYN) 2.5 mg tabletIndications :Peripheral Edema [...] mouth daily 30 tablet 11 12/08/2022 4 spironolactone (ALDACTONE) 25 mg tablet Take 1 tablet (25 mg total) by mouth 2 (two) times a day 90 tablet 3 01/27/2023 3 documented as of this encounter Discharge Disposition [...] Procedure Name Priority Date/Time Associated Diagnosis Comments CYTOLOGY Routine 06/07/2023 12:00 AM PRINTING PRESS OPERATOR APPRENTICE Hematuria, gross documented in this encounter Results * Cytology (06/07/2023 12:00 AM PRINTING PRESS OPERATOR APPRENTICE) Urine (Urine, Voided (Cytology)) 06/07/2023 06/07/2023 7:55 AM PRINTING PRESS OPERATOR APPRENTICE Narrative PATHOLOGY CH - 06/09/2023 5:19 PM PRINTING PRESS OPERATOR APPRENTICE EPIC results best viewed via link to PDF [facility] Department of Pathology [address] [place] [id number] Note to Patients: ??This report may contain [...] details. Final Report Patient Name: ??TESS BENEDICT I. Address: ??[address] , [place], [place] ??[address]- Gender: ??F : ??1935 (Age: 87) Service: ?? Location: ?? Hospital # ??[id number] Patient Type: ?? SPECIMEN Taken: ??06/07/2023 Received: [...] determined by the Surgical Pathology Department at [facility] as part of an ongoing quality assurance assessor program and in compliance with federally mandated [...] characteristics determined by the Surgical Pathology Department [facility]. ??It has not been cleared or approved by the U. S. Food and Drug Administration. Unless otherwise noted all cytology processing, staining and screening is performed at [facility] ([address] [place] [address]). REPORT IMAGES AND SCANNED DOCUMENTS, IF INCLUDED, ONLY VIEWABLE IN PDF VERSION OF REPORT Ana Bernal ACCOUNTING MACHINE OPERATOR LAB CYTOLOGY ORDERABLES [place] [address] documented in this encounter Visit Diagnoses Diagnosis Hematuria, gross Gross hematuria documented in this encounter Care Teams Varnish Thinner Relationship Specialty Start Date End Date Pepper Morgan MD PCP - General 09/16/16 Hank Garibay MD [address] [facility] [address] [place] [address] Surgeon Orthopedic Surgery 03/27/17 Jacky Murry MD [address] [facility] [address] [place] [address] Ophthalmology 03/27/17 Puma Mckenzie MD [address] [facility] [address] [place] [address] Surgeon Orthopedic Surgery 07/11/19 Neha Jackson, PT Physical Therapist Physical Therapy 12/01/21 Stalin Arauz MD [address] [facility] [address] [place] [address] Consulting Physician Cardiology 12/08/22 Tiffany Rojas PA [address] [facility] [place] [address] Gastroenterology 12/30/22 documented as of this encounter
--- OUTSIDE RECORDS SUMMARY | 2024-06-18 18:51 | XMS_ITS | Encounter Summary ---
Author Organization [facility] Address [address] [place] [address] Care Team Providers Care Anatomic Pathology Manager Name Role Phone Pepper Morgan MD Primary Care Provider + [phone] Hank Garibay MD Unavailable [phone] Jacky Murry MD Unavailable [phone] Puma Mckenzie MD Unavailable [phone] Neha Jackson PT Unavailable Unavailable Stalin Arauz MD Unavailable [phone] Tiffany Rojas Unavailable [phone] Klaus Deshpande MD Unavailable [phone] Encounter Details Date Type Department Care Team (Late st Contact Info) Description 07/18/2023 Telephone [facility] [address] [place] [address] Malena Reyez, RN Social History Tobacco Use Types Packs/Day Years Used Date Smoking Tobacco: Former Cigarettes 1 952 - 1982 Smokeless Tobacco: Never [...] on file Legal Sex Female 4:33 AM LEGAL RECRUITER Gender Identity Not on file Sexual Orientation Not on file Occupation Industry Job Start Date Job End Date retired Not on file Not on file Not on file documented as of this encounter Miscellaneous Notes * Telephone Encounter - Malena Reyez RN - 07/18/2023 1:43 PM LEGAL RECRUITER FMLA form was completed today, 07/18/23, to allow patient's daughter, Marilyn, to provide Tess withmedical care/transportation to appointments. Original form is ready for pick-up at Registration Desk/Lobby. Marilyn was contacted and will forwardthe form herself. Copy of form was sent to [employer]. L RECRUITER documented in this encounter Plan of Treatment [...] on filedocumented in this encounter Care Teams Anatomic Pathology Manager Relationship Specialty Start Date End Date Pepper Morgan MD PCP - General 09/16/16 Hank Garibay MD [address] [place] [address] [place] [address] Surgeon Orthopedic Surgery 03/27/17 Jacky Murry MD [address] [facility] [address] [place] [address] Ophthalmology 03/27/17 Puma Mckenzie MD [address] [facility] [address] [place] [address] Surgeon Orthopedic Surgery 07/11/19 Neha Jackson, PT Physical Therapist Physical Therapy 12/01/21 Stalin Arauz MD [address] [facility] [address] [place] [address] Consulting Physician Cardiology 12/08/22 Tiffany Rojas PA [address] [facility] [address] [place] [address] Gastroenterology 12/30/22 Klaus Deshpande MD [address] [facility] [address] [place] [address] Consulting Physician Neurology 06/13/23 documented as of this encounter
--- OUTSIDE RECORDS SUMMARY | 2024-06-18 18:52 | XMS_ITS | Encounter Summary ---
Author Organization [facility] Address [address] [place] [address] Care Team Providers Care Associate Professor Of Musicology Name Role Phone Pepper Morgan MD Primary Care Provider [phone] Hank Garibay MD Unavailable [phone] Jacky Murry MD Unavailable [phone] Puma Mckenzie MD Unavailable [phone] Neha Jackson PT Unavailable Unavailable Stalin Arauz MD Unavailable [phone] Tiffany Rojas Unavailable [phone] Klaus Deshpande MD Unavailable [phone] Encounter Details Date Type Department Care Team (Late st Contact Info) Description 05/30/2023 Telephone [facility] [address] [place] [phone] Pepper Morgan MD [address] [place] [address] Social History Tobacco Use Types Packs/Day [...] attend chur ch or tenriism services? Never 12/29/2022 Do you belong to any clubs o r organizations such as congregational groups, unions, fraternal or athletic groups, or [...] slept in a detention (including now)? No 12/29/2022 Personal Safety Answer Date Recorded Getting School Help Needed Denies 05/29 Comments No Sex and Gender Information Value Date Recorded Sex Assigned at Not on file Legal Sex Female 4:33 AM COARSE WIRE DRAWER Gender Identity Not on file Sexual Orientation Not on file Occupation Industry Job Start Date Job End Date retired Not on file Not on file Not on file documented as of this encounter Miscellaneous Notes * Telephone Encounter - Katy Lopes RN - 05/30/2023 12:31 PM COARSE WIRE DRAWER TOKMS: Patient requests a refill of Clonazepam. Last refill 02/15/23 # 30 Last appt with [facility] 12/08/22 Next appt 07/13/23 Please advise SE WIRE DRAWER * Telephone Encounter - Eri Owens - 05/30/2023 10:20 AM CST Pt needs a refill on Clonazepam 0.[address] mg [facility] SE WIRE DRAWER documented in this encounter Plan of Treatment [...] COVID: Suspected 06/14/2023 06/14/2023 06/14/2023 6:44 PM COARSE WIRE DRAWER COVID: Suspected 06/24/2023 06/24/2023 06/24/2023 12:46 PM COARSE WIRE DRAWER documented as of this encounter Care Teams Associate Professor Of Musicology Relationship Specialty Start Date End Date Pepper Morgan MD PCP - General 09/16/16 Hank Garibay MD [address] [facility] [address] [place] [address] Surgeon Orthopedic Surgery 03/27/17 Jacky Murry MD [address] [facility] [address] [place] [address] Ophthalmology 03/27/17 Puma Mckenzie MD [address] [facility] [address] [place] [address] Surgeon Orthopedic Surgery 07/11/19 Neha Jackson, PT Physical Therapist Physical Therapy 12/01/21 Stalin Arauz MD [address] [facility] [address] [place] [address] Consulting Physician Cardiology 12/08/22 Tiffany Rojas PA [address] [facility] [address] [place] [address] Gastroenterology 12/30/22 Klaus Deshpande MD [address] [facility] [address] [place] [address] Consulting Physician Neurology 06/13/23 documented as of this encounter
--- OUTSIDE RECORDS SUMMARY | 2024-06-18 18:52 | XMS_ITS | Encounter Summary ---
Author Organization [facility] Address [address] [place] [address] Care Team Providers Care Software Quality Assurance Engineer Name Role Phone Pepper Morgan MD Primary Care Provider [phone] Hank Garibay MD Unavailable [phone] Jacky Murry MD Unavailable [phone] Puma Mckenzie MD Unavailable [phone] Neha Jackson PT Unavailable Unavailable Stalin Arauz MD Unavailable [phone] Tiffany Rojas Unavailable [phone] Encounter Details Date Type Department Care Team (Late st Contact Info) Description 05/30/2023 Orders Only [place] [facility] [address] [place] [id number] Pepper Morgan MD [address] [place] [address] Restless legs syndrome (Primary Dx) Social History Tobacco Use Types [...] attend chur ch or taoist services? Never 12/29/2022 Do you belong to any clubs o r organizations such as hindu groups, unions, fraternal or athletic groups, or [...] on file Legal Sex Female 4:33 AM TECHNICAL SERVICES ANALYST Gender Identity Not on file Sexual Orientation Not on file Occupation Industry Job Start Date Job End Date retired Not on file Not on file Not on file documented as of this encounter Ordered Prescriptions Prescription Sig Dispense Quantity Refills Last Filled Start Date End Date clonazePAM (KlonoPIN) 0.5 mg tabletIndications: Restless legs syndrome Take 1 tablet (0.5 mg total) by mouth nightly 30 tablet 1 05/30/2023 documented in this encounter Plan of Treatment [...] legs syndrome- Primary Restless legs syndrome (RLS) documented in this encounter Discontinued Medications Medication Sig Discontinue Reason Start Date End Da te clonazePAM (KlonoPIN) 0.5 mg tablet Take 1 tablet (0.5 mg total) by mouth nightly Reorder 12/08/2022 05/30/2023 documented as of this encounter Care Teams Software Quality Assurance Engineer Relationship Specialty Start Date End Date Pepper Morgan MD PCP - General 09/16/16 Hank Garibay MD [address] [place] [address] [address] [place] [id number] Surgeon Orthopedic Surgery 03/27/17 Jacky Murry MD [address] [facility] [address] [place] [facility] [address] [place] [address] Ophthalmology 03/27/17 Puma Mckenzie MD [address] [facility] [address] [place] [facility] [address] [place] [address] Surgeon Orthopedic Surgery 07/11/19 Neha Jackson, PT Physical Therapist Physical Therapy 12/01/21 Stalin Arauz MD [address] [facility] [address] [place] [address] Consulting Physician Cardiology 12/08/22 Tiffany Rojas PA [address] [facility] [address] [place] [address] Gastroenterology 12/30/22 documented as of this encounter
--- OUTSIDE RECORDS SUMMARY | 2024-06-18 18:52 | XMS_ITS | Encounter Summary ---
Author Organization [facility] Address [address] [address] Care Team Providers Care Welt Pocket Machine Operator Name Role Phone Pepper Morgan MD Primary Care Provider + [phone] Hank Garibay MD Unavailable [phone] Jacky Murry MD Unavailable [phone] Puma Mckenzie MD Unavailable [phone] Neha Jackson PT Unavailable Unavailable Stalin Arauz MD Unavailable [phone] Tiffany Rojas Unavailable [phone] Reason for Visit * Reason Comments Follow-up Shortness of Breath Encounter Details Date Type Department Care Team (Late st Contact Info) Description 03/09/2023 9:30 AM CDT Office Visit [facility] [address] [place] [address] Sabine Dasilva NP [address] [place] [address] Mild persistent asthma, unspecified whether complicated (Primary Dx); 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; Chronic heart failure with preserved ejection fraction [...] attend chur ch or baptist services? Never 12/29/2022 Do you belong to any clubs o r organizations such as oriental orthodox groups, unions, fraternal or athletic groups, or [...] in a [facility] (including now)? 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 Gender Identity Not on file Sexual Orientation Not on file Occupation Industry Job Start Date Job End Date retired Not on file Not on file Not on file documented as of this encounter Last Filed Vital Signs Vital Sign Reading Time Taken Comments Blood Pressure 94/60 03/09/2023 9:19 AM CDT Pulse 75 03/09/2023 9:19 AM CDT Temperature 36.4 ??C (97.5 ??F) 03/09/2023 9:19 AM CD T Respiratory Rate 16 03/09/2023 9:19 AM CDT Oxygen Saturation 97% 03/09/2023 9:19 AM CDT Inhaled Oxygen Concentration - - Weight 83.5 kg (184 lb) 03/09/2023 9:19 AM CDT Height - - Body Mass Index 35.94 02/07/2023 9:40 AM CDT documented in this encounter Patient Instructions * Patient Instructions* Sabine Dasilva NP - 03/09/2023 9:30 AM CDT Follow 1 month for asthma. documented in this encounter Ordered Prescriptions Prescription Sig Dispense Quantity Refills Last Filled Start Date End Date albuterol HFA (Proventil HFA) 90 mcg/actuation inhalerIndications :Mild persistent asthma, unspecified whether complicated Inhale 2 puffs every 6 (six) hours as needed for wheezing or shortness of breath 6.7 g 3 03/09/2023 3 fluticasone propion-salmeteroL (ADVAIR DISKUS) 100-50 mcg/dose diskus inhaler Inhale 1 puff 2 (two) times a day Rinse mouth with water after use. Do not swallow. 1 each 4 03/09/2023 4 documented in this encounter Progress Notes * Sabine Dasilva, MAINTENANCE SPECIALIST - 03/09/2023 9:30 AM CDT Images from the original note were not included. Patient ID: Tess Benedict is a 87 y.o. female. Chief Complaint. Chief Complaint Patient presents with Follow-up Shortness of Breath HPI. Patient is a 87 y.o. female HPI Presents c/o worsening SOBOE and chest tightness for several weeks. Using albuterol 3 times daily with relief. Non-productive cough. Saw cardiology recently- they added jardiance, taking metolazone, spironolactone, and lasix as directed. CXR 02/16/23 was unremarkable. ECHO 05/2022 unremarkable. Past Medical History: Diagnosis Date Allergic rhinitis [...] Cell Tobacco use 1-2ppd x 35yrs quit - Past Surgical History: Procedure Laterality Date BARIATRIC [...] TOTAL HIP ARTHROPLASTY Left 11/01/2021 Dr. Mckenzie, [facility]. Social History Tobacco Use Smoking status: Former Packs/day: 2.00 Years: 30.00 Additional pack years: 0.00 Total pack years: 60.00 Types: Cigarettes Quit date: 1981 Years since quittin.7 Smokeless [...] Aortic Aneurysm Father COPD Father Current Medications: Outpatient Encounter Medications as of 03/09/2023 Medication Sig Dispense Refill albuterol HFA (Proventil [...] mg total) by mouth nightly 30 tablet 5 felodipine (PLENDIL) 5 mg 24 hr tablet [...] capsule (300 mg total) by mouth nightly 30 capsule 0 metOLazone (ZAROXOLYN) 2.5 mg tablet [...] mEq total) by mouth daily pramipexole (MIRAPEX) 0.25 mg tablet Take 1 tablet (0.25 mg total) by mouth 2 (two) times a day 180tablet 2 propranoloL (INDERAL) 20 mg tablet Take [...] 1 tablet (9 mgtotal) by mouth daily (Patient not taking: Reported on 02/16/2023) [DISCONTINUED] cyclobenzaprine (FLEXERIL) 10 mg tablet Take 1 tablet (10 mg total) by mouth nightlyas needed for muscle spasms 30 tablet 0 No facility-administered encounter medications on file as of 03/09/2023. Allergies Allergies Allergen Reactions Celecoxib Anaphylaxis Scopolamine Mental status changes Delirium postop after joint replacement due to this medicine Sulfa (Sulfonamide Antibiotics) Anaphylaxis Amlodipine Swelling Lisinopril Swelling Trazodone Swelling Tongue Cipro [Ciprofloxacin Hcl] Vomiting Cymbalta [Duloxetine] Fatigue Sleepiness, tiredness possibly related to 20 mg morning dose of this medicine discontinued 11/30/2020 Sinemet [Carbidopa-Levodopa] Other (See comments) Mukul hines Immunizations Immunization History Administered Date(s) Administered Influenza, Quad, Adjuvantated, Intramuscular 03/10/2022 Influenza, Quadrivalent, High Dose, Preservative Free, Intrr 03/31/2020, 04/13/2021 Influenza, Quadrivalent, Split, Intramuscular 03/28/2016, 04/04/2017 Influenza, Split 05/18/2012 Influenza, Trivalent, Adjuvanted, Intramuscular 04/17/2019 Influenza, Trivalent, High Dose, Split, Preservative Free, Intramuscular 03/23/2015, 03/12/2018, 04/17/2019 Influenza, Trivalent, Intramuscular 03/25/2014, 04/17/2015 Influenza, Unspecified 03/13/2018, 03/19/2021, 03/10/2022 [employer] SARS-CoV-2 Monovalent Vaccination (12+ Yrs) DOSS-READY TO USE 01/11/2022 Pfizer SARS-CoV-2 Monovalent Vaccination (12+ Yrs) PURPLE 08/15/2020, 09/06/2020, 03/14/2021 Pfizer Sars-Cov-2 Bivalent Vaccination (12+ YRS) 04/01/2022 Pneumococcal Conjugate PCV 13 02/18/2015 Pneumococcal Polysaccharide PPV23 05/17/2002, 04/26/2016 Tdap 05/18/2011, 08/23/2021 ZOSTER Recombinant 12/02/2020, 02/23/2021 Review of Systems Constitutional: Negative for appetite change, chills, fatigue and fever. HENT: Negative for congestion, ear pain, rhinorrhea, sinus pain, sneezing and sore throat. Eyes: Negative for visual disturbance. Respiratory: Positive for cough, chest tightness, shortness of breath (on exertion) and wheezing. Cardiovascular: Negative for chest pain, palpitations and leg swelling. Gastrointestinal: Negative for abdominal pain, constipation, diarrhea, nausea and vomiting. Genitourinary: Negative for difficulty urinating. Musculoskeletal: Negative for arthralgias and myalgias. Skin: Negative for color change. Neurological: Negative for dizziness, syncope, weakness and headaches. Psychiatric/Behavioral: Negative for dysphoric mood and sleep disturbance. The patient is not nervous/anxious. BP 94/60 (BP Location: Left arm, Patient Position: Sitting) Pulse 75 Temp 36.4 ??C (97.5 ??F) (Temporal) Resp 16 Wt 83.5 kg (184 lb) LMP (LMP Unknown) SpO2 97% BMI 35.94 kg/m?? Body mass index is 35.94 kg/m??. Physical Exam Vitals and nursing note reviewed. Constitutional: Appearance: Normal appearance. HENT: Head: Normocephalic and atraumatic. Eyes: Conjunctiva/sclera: Conjunctivae normal. Pupils: Pupils are equal, round, and reactive to light. Cardiovascular: Rate and Rhythm: Normal rate and regular rhythm. Pulses: Normal pulses. Heart sounds: Normal heart sounds. No murmur heard. Pulmonary: Effort: Pulmonary effort is normal. No respiratory distress. Breath sounds: No stridor. Wheezing (rare expiratory wheezes to apexes.) present. No rhonchi or rales. Chest: Chest wall: No tenderness. Abdominal: General: There is no distension. Palpations: Abdomen is soft. Tenderness: There is no abdominal tenderness. Musculoskeletal: General: Normal range of motion. Cervical back: Normal range of motion. Right lower leg: No edema. Left lower leg: No edema. Skin: General: Skin is warm and dry. Neurological: General: No focal deficit present. Mental Status: She is alert and oriented to person, place, and time. Psychiatric: Mood and Affect: Mood normal. Behavior: Behavior normal. Admission on 02/16/2023, Discharged on 02/16/2023 Component [...] 96 Calcium 01/16/2023 9.8 eGFR 01/16/2023 35 Lab on 01/06/2023 Component Date Value Sodium 01/06/2023 140 Potassium, pl 01/06/2023 5.3 (H) Chloride 01/06/2023 101 CO2 01/06/2023 30 Anion gap 01/06/2023 9 BUN 01/06/2023 35 (H) Creatinine 01/06/2023 1.29 (H) Glucose 01/06/2023 109 Calcium 01/06/2023 9.0 NT-proBNP 01/06/2023 3,466 (H) eGFR 01/06/2023 41 Admission on 12/28/2022, Discharged on 12/30/2022 Component Date Value WBC 12/28/2022 8.4 Hgb 12/28/2022 13.2 Hct 12/28/2022 40.8 Plt 12/28/2022 318 MPV 12/28/2022 8.8 (L) RBC 12/28/2022 4.84 MCV 12/28/2022 84.3 MCH 12/28/2022 27.3 MCHC 12/28/2022 32.4 RDW CV 12/28/2022 13.7 RDW SD 12/28/2022 42.4 NRBC abs 12/28/2022 0.00 Sodium 12/28/2022 130 (L) Potassium, pl 12/28/2022 4.9 Chloride 12/28/2022 91 (L) CO2 12/28/2022 27 Anion gap 12/28/2022 13 BUN 12/28/2022 44 (H) Creatinine 12/28/2022 2.12 (H) Glucose 12/28/2022 89 Calcium 12/28/2022 9.7 Bilirubin, total 12/28/2022 0.4 Protein, pl 12/28/2022 6.9 Albumin 12/28/2022 3.5 Alk phos 12/28/2022 107 ALT 12/28/2022 9 AST 12/28/2022 14 Magnesium 12/28/2022 1.8 Neutrophil abs 12/28/2022 6.4 Imm gran abs 12/28/2022 0.1 Lymphocyte abs 12/28/2022 0.8 Monocyte abs 12/28/2022 0.9 (H) Eosinophil abs 12/28/2022 0.2 Basophil abs 12/28/2022 0.0 Neutrophil pct 12/28/2022 76.0 Imm gran pct 12/28/2022 0.8 Lymphocyte pct 12/28/2022 9.3 Monocyte pct 12/28/2022 10.7 Eosinophil pct 12/28/2022 2.7 Basophil pct 12/28/2022 0.5 eGFR 12/28/2022 22 CRP 12/28/2022 55.4 (H) Erythrocyte sedimentatio* 12/28/2022 26 Sodium 12/29/2022 133 (L) Potassium, pl 12/29/2022 3.6 Chloride 12/29/2022 95 (L) CO2 12/29/2022 26 Anion gap 12/29/2022 12 BUN 12/29/2022 39 (H) Creatinine 12/29/2022 1.85 (H) Glucose 12/29/2022 80 Calcium 12/29/2022 8.8 Phosphorus, pl 12/29/2022 3.4 Albumin 12/29/2022 2.8 (L) WBC 12/29/2022 6.1 Hgb 12/29/2022 11.4 (L) Hct 12/29/2022 35.3 (L) Plt 12/29/2022 252 MPV 12/29/2022 9.3 RBC 12/29/2022 4.19 MCV 12/29/2022 84.2 MCH 12/29/2022 27.2 MCHC 12/29/2022 32.3 RDW CV 12/29/2022 14.1 RDW SD 12/29/2022 43.1 NRBC abs 12/29/2022 0.00 Magnesium 12/29/2022 1.6 Neutrophil abs 12/29/2022 4.2 Imm gran abs 12/29/2022 0.1 Lymphocyte abs 12/29/2022 0.8 Monocyte abs 12/29/2022 0.8 Eosinophil abs 12/29/2022 0.3 Basophil abs 12/29/2022 0.1 Neutrophil pct 12/29/2022 68.0 Imm gran pct 12/29/2022 1.0 Lymphocyte pct 12/29/2022 12.9 Monocyte pct 12/29/2022 12.9 Eosinophil pct 12/29/2022 4.4 Basophil pct 12/29/2022 0.8 eGFR 12/29/2022 26 Glucose, POC 12/29/2022 75 WBC 12/30/2022 6.4 Hgb 12/30/2022 11.5 (L) Hct 12/30/2022 35.6 Plt 12/30/2022 265 MPV 12/30/2022 9.4 RBC 12/30/2022 4.19 MCV 12/30/2022 85.0 MCH 12/30/2022 27.4 MCHC 12/30/2022 32.3 RDW CV 12/30/2022 14.1 RDW SD 12/30/2022 43.4 NRBC abs 12/30/2022 0.00 Sodium 12/30/2022 134 (L) Potassium, pl 12/30/2022 3.6 Chloride 12/30/2022 96 (L) CO2 12/30/2022 26 Anion gap 12/30/2022 12 BUN 12/30/2022 29 (H) Creatinine 12/30/2022 1.45 (H) Glucose 12/30/2022 101 Calcium 12/30/2022 8.8 Bilirubin, total 12/30/2022 0.2 Protein, pl 12/30/2022 5.8 (L) Albumin 12/30/2022 2.8 (L) Alk phos 12/30/2022 86 ALT 12/30/2022 6 (L) AST 12/30/2022 11 Neutrophil abs 12/30/2022 4.5 Imm gran abs 12/30/2022 0.1 Lymphocyte abs 12/30/2022 0.8 Monocyte abs 12/30/2022 0.8 Eosinophil abs 12/30/2022 0.3 Basophil abs 12/30/2022 0.0 Neutrophil pct 12/30/2022 69.8 Imm gran pct 12/30/2022 0.8 Lymphocyte pct 12/30/2022 13.1 Monocyte pct 12/30/2022 11.8 Eosinophil pct 12/30/2022 3.9 Basophil pct 12/30/2022 0.6 eGFR 12/30/2022 35 Admission on 12/22/2022, Discharged on 12/22/2022 Component Date Value WBC 12/22/2022 7.4 Hgb 12/22/2022 14.3 Hct 12/22/2022 44.1 Plt 12/22/2022 333 MPV 12/22/2022 8.9 (L) RBC 12/22/2022 5.24 (H) MCV 12/22/2022 84.2 MCH 12/22/2022 27.3 MCHC 12/22/2022 32.4 RDW CV 12/22/2022 13.3 RDW SD 12/22/2022 41.1 NRBC abs 12/22/2022 0.00 Sodium 12/22/2022 130 (L) Potassium, pl 12/22/2022 4.5 Chloride 12/22/2022 89 (L) CO2 12/22/2022 30 Anion gap 12/22/2022 11 BUN 12/22/2022 36 (H) Creatinine 12/22/2022 1.79 (H) Glucose 12/22/2022 92 Calcium 12/22/2022 9.9 Bilirubin, total 12/22/2022 0.5 Protein, pl 12/22/2022 7.2 Albumin 12/22/2022 3.7 Alk phos 12/22/2022 110 ALT 12/22/2022 11 AST 12/22/2022 17 Neutrophil abs 12/22/2022 5.6 Imm gran abs 12/22/2022 0.1 Lymphocyte abs 12/22/2022 1.0 Monocyte abs 12/22/2022 0.6 Eosinophil abs 12/22/2022 0.2 Basophil abs 12/22/2022 0.1 Neutrophil pct 12/22/2022 74.8 Imm gran pct 12/22/2022 0.8 Lymphocyte pct 12/22/2022 12.9 Monocyte pct 12/22/2022 7.7 Eosinophil pct 12/22/2022 3.1 Basophil pct 12/22/2022 0.7 eGFR 12/22/2022 27 Office Visit on 12/08/2022 Component Date Value Glucose 12/09/2022 89 BUN 12/09/2022 61 (H) Creatinine 12/09/2022 2.05 (H) eGFR 12/09/2022 23 (L) BUN/creat ratio 12/09/2022 30 (H) Sodium 12/09/2022 132 (L) Potassium, pl 12/09/2022 4.1 Chloride 12/09/2022 92 (L) CO2 12/09/2022 28 Calcium 12/09/2022 9.3 Protein, sr 12/09/2022 7.0 Albumin 12/09/2022 3.9 GLOBULIN 12/09/2022 3.1 Alb/glob ratio 12/09/2022 1.3 Bilirubin, total 12/09/2022 0.7 Alk phos 12/09/2022 105 AST 12/09/2022 15 ALT (SGPT) 12/09/2022 12 Magnesium 12/09/2022 2.1 Free T4 12/09/2022 1.6 TSH 12/09/2022 2.56 C difficile Toxins/GDH w* 12/14/2022 CAMPYLOBACTER SPP. AG EIA 12/14/2022 Dutch/Shig/Campy, culture * 12/14/2022 CULTURE, SALMONELLA AND * 12/14/2022 Question/Problem: 12/14/2022 SPECIMEN(S) RECEIVED: 12/14/2022 TotalFix stool vial Contact: 12/14/2022 Comment 12/14/2022 Assessment & Plan: Diagnoses and all orders for this visit: Mild persistent asthma, unspecified whether complicated (Primary) Assessment & Plan: No PFTs in chart. Intermittent expiratory wheezing on exam, lungs otherwise clear. No acute cardiacsymptoms or findings on exam. CXR 3 weeks ago was unremarkable. 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 Activity as tolerated. Discussed PFTs and/or pulmonary referral in future if symptoms persist. Orders: - albuterol HFA (Proventil HFA) 90 mcg/actuation inhaler; Inhale 2 puffs every 6 (six) hours as needed for wheezing or shortness of breath 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 Assessment & Plan: BP soft but stable in office today on current therapy. No acute findings on exam. Continue current regimen and low salt diet. Chronic heart failure with preserved ejection fraction (CMS/HCC) ([facility]) Assessment & Plan: C/o SOBOE for 2 weeks. No other acute symptoms or findings on exam, lungs with intermittent wheezes. Sees cardiology on regular basis, at recent visit they added jardiance. CXR 02/16/23 was unremarkable. ECHO 05/2022 unremarkable. Continue current medical regimen. See plan for asthma above. Other orders - fluticasone propion-salmeteroL (ADVAIR DISKUS) 100-50 mcg/dose diskus inhaler; Inhale 1 puff 2 (two) times a day Rinse mouth with water after use. Do not swallow. Return in about 4 weeks (around 04/06/2023) for Recheck. Sabine Dasilva NP Cosigned by Pepper Morgan MD at 03/14/2023 9:54 PM CDT documented in this encounter Miscellaneous Notes * Assessment & Plan Note - Sabine Dasilva NP - 03/13/2023 1:09 PM CDT Associated Problem(s): Mild persistent asthma No PFTs in chart. Intermittent expiratory wheezing on exam, lungs otherwise clear. No acute cardiacsymptoms or findings on exam. CXR 3 weeks ago was unremarkable. 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 Activity as tolerated. Discussed PFTs and/or pulmonary referral in future if symptoms persist. * Assessment & Plan Note - Sabine Dasilva NP - 03/13/2023 1:06 PM CDT Associated Problem(s): Acute on chronic heart failure with preserved ejection fraction (CMS/HCC) (HCC) C/o SOBOE for 2 weeks. No other acute symptoms or findings on exam, lungs with intermittent wheezes. Sees cardiology on regular basis, at recent visit they added jardiance. CXR 02/16/23 was unremarkable. ECHO 05/2022 unremarkable. Continue current medical regimen. See plan for asthma above. * Assessment & Plan Note - Sabine Dasilva NP - 03/13/2023 1:02 PM CDT Associated Problem(s): 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 BP soft but stable in office today on current therapy. No acute findings on exam. Continue current regimen and low salt diet. documented in this encounter Plan of Treatment [...] as of this encounter Visit Diagnoses Diagnosis Mild persistent asthma, unspecified whether complicated- Primary 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 Essential hypertension, benign Chronic heart failure with preserved ejection fraction (CMS/HCC) (HCC) documented in this encounter Discontinued Medications Medication Sig Discontinue Reason Start Date End Da te budesonide DR/ER (UCERIS) 9 mg tablet, delayed & ext.release Take 1 tablet (9 mg total) by mouth daily Cost of medication 01/22/2023 03/09/2023 albuterol HFA (Proventil HFA) 90 mcg/actuation inhalerIndications:Coug h Inhale 2 puffs every 6 (six) hours as needed for wheezing or shortness of breath Reorder 02/22/2023 03/09/2023 documented as of this encounter Care Teams Welt Pocket Machine Operator Relationship Specialty Start Date End Date Pepper Morgan MD PCP - General 09/16/16 Hank Garibay MD [address] [place] [address] [address] [facility] [address] [place] [address] Surgeon Orthopedic Surgery 03/27/17 Jacky Murry MD [address] [place] [address] [address] [facility] [address] [place] [address] Ophthalmology 03/27/17 Puma Mckenzie MD [address] [facility] [address] [facility] [address] [place] [address] Surgeon Orthopedic Surgery 07/11/19 Neha Jackson, PT Physical Therapist Physical Therapy 12/01/21 Stalin Arauz MD [address] [facility] [address] [place] [address] Consulting Physician Cardiology 12/08/22 Tiffany Rojas PA [address] [facility] [address] [place] [address] Gastroenterology 12/30/22 documented as of this encounter
--- OUTSIDE RECORDS SUMMARY | 2024-06-18 18:52 | XMS_ITS | Encounter Summary ---
Author Organization [facility] Healthcare Address [address] [place] [address] Care Team Providers Care Aesthetician Name Role Phone Pepper Morgan MD Primary Care Provider + [phone] Hank Garibay MD Unavailable [phone] Jacky Murry MD Unavailable [phone] Puma Mckenzie MD Unavailable [phone] Neha Jackson PT Unavailable Unavailable Stalin Arauz MD Unavailable [phone] Tiffany Rojas Unavailable [phone] Reason for Referral * Diagnostic Imaging (Routine) - Closed Specialty Diagnoses / Procedures Referred By Contac t Referred To Contact Diagnoses Acute bilateral low back pain without sciatica Procedures XR Spine Lumbar 2 or 3 Views Alexia Rao, INVESTIGATOR [address] [place] [address] Phone: tel: [facility] Medical [facility] Referral ID Status Reason Start Date Expiration Date Visits Re quested Visits Authorized [id number] Closed 05/29/2023 06/27/[address] Reason for Visit * Reason Comments Fall Fell backwards on he r butt, X 1 week, hard to walk across the room with out pain, prior diagnosis of spinal stenosis. Shoulder Pain Limited mobility wit h it, did not hurt it in her fall, prior pain, Right shoulder Encounter Details Date Type Department Care Team (Late st Contact Info) Description 05/29/2023 11:[address] Office Visit [facility] Convenient Care at [address] [address] Alexia Rao, INVESTIGATOR [address] [place] [address] [address] [place] [address] Acute bilateral low back pain without sciatica (Primary Dx); Acute pain of right shoulder Social History Tobacco Use Types Packs/Day Years [...] attend chur ch or christian services? Never 12/29/2022 Do you belong to [...] slept in a custodial (including now)? No 12/29/2022 Personal Safety Answer Date Recorded Getting School Help Needed Denies 05/29 Comments No Sex and Gender Information Value Date Recorded Sex Assigned at Not on file Legal Sex Female 4:[address] Gender Identity Not on file Sexual Orientation Not on file Occupation Industry Job Start Date Job End Date retired Not on file Not on file Not on file documented as of this encounter Last Filed Vital Signs Vital Sign Reading Time Taken Comments Blood Pressure 105/67 05/29/2023 10:[address] Pulse 78 05/29/2023 10:[address] Temperature 36.7 ??C (98.1 ??F) 05/29/2023 10:[address] Respiratory Rate 18 05/29/2023 10:[address] Oxygen Saturation 99% 05/29/2023 10:[address] Inhaled Oxygen Concentration - - Weight 87.3 kg (192 lb 8 oz) 05/29/2023 10:[address] Height 152.4 cm (5') 05/29/2023 10:[address] Body Mass Index 37.6 05/29/2023 10:[address] documented in this encounter Patient Instructions * Patient Instructions* Alexia Rao NP - 05/29/2023 11:[address] --Referral placed to orthopedics (Pt is established with Dr. Meier) and to Spinal doctors for back pain. --May take tylenol or ibuprofen for pain, use as directed --Ice to injured site to help reduce swelling and pain --Elevated on pillows at or above the level of the heart --You may use over the counter lidocaine patches 4% commonly branded as Salon Pas or Asprecreme Lidocaine Patches as needed. Apply patch to the affected are for 12 hours and then remove for 12 hours. --Follow up with primary care provider in 2 weeks or sooner if symptoms worsen. If you begin to have any numbness/tingling down the legs or loss of bowel/bladder control, go to the Emergency Room. --Monitor symptoms and if they worsen follow up with primary doctor, orthopedics, or in the ER if needed. T OF WAY MAN T OF WAY MAN * Attachments The following attachments cannot be sent through Care Everywhere. * Shoulder Pain (Tank Shop Supervisor) ([place]) * Back Pain (Tank Shop Supervisor) ([place]) documented in this encounter Progress Notes * Alexia Rao NP - 05/29/2023 11:00 AM CST Images from the original note were not included. Subjective/Objective Patient ID: Tess Benedict is a 87 y.o. female. Chief Complaint Fall (Fell backwards on her butt, X 1 week, hard to walk across the room with out pain, prior diagnosis of spinal stenosis. ) and Shoulder Pain (Limited mobility with it, did not hurt it in her fall,prior pain, Right shoulder ) Patient presents to the clinic with reports of falling 1 week ago and having continued lower back pain since. Patient reports a history of spinal stenosis of her back. Patient also reporting a chronic right shoulder pain that has been worsening over the past month. Patient denies any previous surgery to her right shoulder or her back. Denies fevers, loss of sensation, numbness, open/broken skin, issues with bowel or bladder, and numbness and loss of sensation down legs. Patient has used Salonpas pain patches and Tylenol as needed for her pain. Review of Systems Constitutional: Negative for chills, fatigue and fever. Respiratory: Negative for cough. Cardiovascular: Negative for chest pain. Musculoskeletal: Positive for arthralgias (right shoulder) and back pain (lower back). Neurological: Negative for weakness and headaches. Physical Exam Vitals reviewed. Constitutional: General: She is not in acute distress. Appearance: Normal appearance. She is not ill-appearing. HENT: Head: Normocephalic. Mouth/Throat: Lips: [employer]. Cardiovascular: Rate and Rhythm: Normal rate. Pulmonary: Effort: Pulmonary effort is normal. Breath sounds: Normal breath sounds. Musculoskeletal: Right shoulder: Tenderness (only with ROM, not with palpation) present. No swelling or deformity. Decreased range of motion. Normal strength. Normal pulse. Cervical back: Normal. Thoracic back: Normal. Lumbar back: Tenderness (with walking only, not with palpation) present. No swelling, edema, deformity, signs of trauma, lacerations or spasms. Normal range of motion. Negative right straight leg raise test. Skin: General: Skin is warm. Neurological: Mental Status: She is alert and oriented to person, place, and time. Psychiatric: Mood and Affect: Mood normal. Vitals: 05/29/23 1049 BP: 105/67 Pulse: 78 Resp: 18 Temp: 36.7 ??C (98.1 ??F) TempSrc: Oral SpO2: 99% Weight: 87.3 kg (192 lb 8 oz) Height: 152.4 cm (5') Assessment/Plan --Referral placed to orthopedics (Pt is established with Dr. Meier) and to Spinal doctors for back pain. --May take tylenol or ibuprofen for pain, use as directed --Ice to injured site to help reduce swelling and pain --Elevated on pillows at or above the level of the heart --You may use over the counter lidocaine patches 4% commonly branded as Salon Pas or Asprecreme Lidocaine Patches as needed. Apply patch to the affected are for 12 hours and then remove for 12 hours. --Follow up with primary care provider in 2 weeks or sooner if symptoms worsen. If you begin to have any numbness/tingling down the legs or loss of bowel/bladder control, go to the Emergency Room. --Monitor symptoms and if they worsen follow up with primary doctor, orthopedics, or in the ER if needed. Diagnoses and all orders for this visit: Acute bilateral low back pain without sciatica (Primary) - XR Spine Lumbar 2 or 3 Views; Future - Ambulatory referral to Spine Surgery; Future Acute pain of right shoulder - XR Shoulder Right 2+ Vw; Future - Ambulatory referral to Orthopedic Surgery; Future XRAY of LUMBAR BACK IMPRESSION: Mild osteopenia with multilevel lumbar spondylosis without definiteevidence of acute fracture or subluxation. XRAY of RIGHT shoulder IMPRESSION: No gross acute osseous abnormality with severe right shoulder osteoarthritis. Patient Education: Shoulder Pain LAMP REPLACER: Shoulder pain is a common problem that can affect your daily activities. Pain can be caused by a problem within your shoulder, such as soreness of a tendon or bursa. A tendon is a cord of tough tissue that connects your muscles to your bones. The bursa is a fluid-filled sac that acts as a cushion between a bone and a tendon. Shoulder pain may also be caused by pain that spreads to your shoulder from another part of your body. Seek care immediately if: You have severe pain. You cannot move your arm or shoulder. You have numbness or tingling in your shoulder or arm. Contact your healthcare provider if: Your pain gets worse or does not go away with treatment. You have trouble moving your arm or shoulder. You have questions or concerns about your condition or care. Treatment for shoulder pain may include any of the following: Acetaminophen decreases pain and fever. It is available without a doctor's order. Ask how much to take and how often to take it. Follow directions. Read the labels of all other medicines you are using to see if they also contain acetaminophen, or ask your doctor or pharmacist. Acetaminophen can cause liver damage if not taken correctly. NSAIDs , such as ibuprofen, help decrease swelling, pain, and fever. This medicine is available with or without a doctor's order. NSAIDs can cause stomach bleeding or kidney problems in certain people. If you take blood thinner medicine, always ask your healthcare provider if NSAIDs are safe for you. Always read the medicine label and follow directions. A steroid injection may help decrease pain and swelling. Surgery may be needed for long-term pain and loss of function. Manage your symptoms: Apply ice on your shoulder for 20 to 30 minutes every 2 hours or as directed. Use an ice pack, or put crushed ice in a plastic bag. Cover it with a towel before you apply it to your shoulder. Ice helps prevent tissue damage and decreases swelling and pain. Apply heat if ice does not help your symptoms. Apply heat on your shoulder for 20 to 30 minutes every 2 hours for as many days as directed. Heat helps decrease pain and muscle spasms. Limit activities as directed. Try to avoid repeated overhead movements. Go to physical or occupational therapy as directed. A physical therapist teaches you exercises to help improve movement and strength, and to decrease pain. An occupational therapist teaches you skills to help with your daily activities. Prevent shoulder pain: Maintain a good range of motion in your shoulder. Ask your healthcare provider which exercises you should do on a regular basis after you have healed. Stretch and strengthen your shoulder. Use proper technique during exercises and sports. Follow up with your healthcare provider or orthopedist as directed: Write down your questions so you remember to ask them during your visits. ?? Copyright [employer] 2021 Information is for End User's use only and may not be sold, redistributed or otherwise used for commercial purposes. All illustrations and images included in CareNotes?? are the copyrighted property of [employer] or [employer] The above information is an medicaid eligibility specialist only. It is not intended as medical advice for individual conditions or treatments. Talk to your doctor, nurse or pharmacist before following any medical regimen to see if it is safe and effective for you. Back Pain LAMP REPLACER: Back pain is common. You may have back pain and muscle spasms. You may feel sore or stiff on one orboth sides of your back. The pain may spread to your lower body. Conditions that affect the spine, joints, or muscles can cause back pain. These may include arthritis, spinal stenosis (narrowing of the spinal column), muscle tension, or breakdown of the spinal discs. Call your local emergency number (911 in the [place]) if: You have severe back pain with chest pain. You cannot control your urine or bowel movements. Your pain becomes so severe that you cannot walk. Seek care immediately if: You have pain, numbness, or weakness in one or both legs. You have severe back pain, nausea, and vomiting. You have severe back pain that spreads to your side or genital area. Call your doctor if: You have back pain that does not get better with rest and pain medicine. You have a fever. You have pain that worsens when you are on your back or when you rest. You have pain that worsens when you cough or sneeze. You lose weight without trying. You have questions or concerns about your condition or care. Medicines: You may need any of the following: NSAIDs help decrease swelling and pain or fever. This medicine is available with or without a doctor's order. NSAIDs can cause stomach bleeding or kidney problems in certain people. If you take bloodthinner medicine, always ask your healthcare provider if NSAIDs are safe for you. Always read the medicine label and follow directions. Acetaminophen decreases pain and fever. It is available without a doctor's order. Ask how much to take and how often to take it. Follow directions. Read the labels of all other medicines you are using to see if they also contain acetaminophen, or ask your doctor or pharmacist. Acetaminophen can cause liver damage if not taken correctly. Muscle relaxers help decrease muscle spasms and back pain. Take your medicine as directed. Contact your healthcare provider if you think your medicine is not helping or if you have side effects. Tell your provider if you are allergic to any medicine. Keep a list of the medicines, vitamins, and herbs you take. Include the amounts, and when and why you take them. Bring the list or the pill bottles to follow-up visits. Carry your medicine list with you in case of an emergency. Manage your back pain: Apply ice on your back for 15 to 20 minutes every hour or as directed. Use an ice pack, or put crushed ice in a plastic bag. Cover it with a towel before you apply it to your skin. Ice helps prevent tissue damage and decreases pain. Apply heat on your back for 20 to 30 minutes every 2 hours for as many days as directed. Heat helpsdecrease pain and muscle spasms. Stay active as much as you can without causing more pain. Bed rest could make your back pain worse.Avoid heavy lifting until your pain is gone. Go to physical therapy as directed. A physical therapist can teach you exercises to help improve movement and strength, and to decrease pain. Follow up with your doctor in 2 weeks, or as directed: You might need to see a specialist. Write down your questions so you remember to ask them during your visits. ?? Copyright [employer] 2021 Information is for End User's use only and may not be sold, redistributed or otherwise used for commercial purposes. All illustrations and images included in CareNotes?? are the copyrighted property of [employer] or [employer] The above information is an medicaid eligibility specialist only. It is not intended as medical advice for individual conditions or treatments. Talk to your doctor, nurse or pharmacist before following any medical regimen to see if it is safe and effective for you. Disposition Treatment plan including expectations, follow up, and return precautions discussed with patient/parent, verbalizes understanding. Medication dosage, use, and potential adverse reactions discussed with patient/parent. Advised to follow up with PCP if symptoms do not resolve as expected or sooner if condition worsens. Signs/symptoms warranting ER evaluation reviewed. Patient and/or guardian was given an opportunity to ask questions, questions answered. Alexia Rao NP 05/29/23 11:[address] MAN documented in this encounter Plan of Treatment [...] documented as of this encounter Results * XR Spine Lumbar 2 or 3 Views (05/29/2023 11:[address]) Anatomical Region Laterality Modality Spine N/A Digital Radiogra phy 05/29/2023 11:[address] Narrative 05/29/2023 11:[address] EXAM DESCRIPTION: XR SPINE LUMBAR 2 OR 3 VIEWS REASON FOR STUDY: pain ?? Pt complains of right anterior shoulder pain for a few weeks. No known injury. Lower mid back pain and after falling last week. No surgery to lumbar or shoulder. ?? TECHNIQUE: 2 ??radiographic view(s) of the ??lumbar ??spine. COMPARISON: 12/22/2022 FINDINGS: There is mild osteopenia. ??There is no definite evidence of acute fracture or subluxation involving the lumbar spine. ??There is a mild levoscoliotic curvature lumbar spine centered at L3. ??There is minimal retrolisthesis of L1 on L2, L2 on L3, and L3 on L4. ??There is minimal to mild grade 1 anterolisthesis of L4 on L5. ??There is minimal anterolisthesis of L5 on S1. ??There are multilevel degenerative changes of the lumbar spine with disc space narrowing, endplate osteophytosis, and facet arthropathy. ??There are degenerative changes bilateral sacroiliac joints with joint space narrowing and sclerosis. 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 ??There are atherosclerotic changes of the aorta. ??Left common iliac and external iliac stents are again noted. IMPRESSION: Mild osteopenia with multilevel lumbar spondylosis without definite evidence of acute fracture or subluxation. THIS IS AN ELECTRONICALLY VERIFIED FINAL REPORT 05/29/2023 11:26 AM - Electronically signed by ??Rock Jerome D.O. PS D: ??05/29/2023 11:26 AM T: Report ID: [id number] Reading Location: ??[id number] Procedure Note Rock Jerome, DO - 05/29/2023 EXAM DESCRIPTION: XR SPINE LUMBAR 2 OR 3 VIEWS REASON FOR STUDY: pain Pt complains of right anterior shoulder pain for a few weeks. No knowninjury. Lower mid back pain and after falling last week. No surgery to lumbar or shoulder. TECHNIQUE: 2 radiographic view(s) of the lumbar spine. COMPARISON: 12/22/2022 FINDINGS: There is mild osteopenia. There is no definite evidence ofacute fracture or subluxation involving the lumbar spine. There is a mild levoscoliotic curvature lumbar spine centered at L3. There is minimal retrolisthesis of L1 on L2, L2 on L3, and L3 on L4. There is minimal tomild grade 1 anterolisthesis of L4 on L5. There is minimal anterolisthesis ofL5 on S1. There are multilevel degenerative changes of the lumbar spine with disc space narrowing, endplate osteophytosis, and facet arthropathy.There are degenerative changes bilateral sacroiliac joints with joint space narrowing and sclerosis. Postsurgical changes bilateral hiparthroplasties are noted. There are atherosclerotic changes of the aorta. Left commoniliac and external iliac stents are again noted. IMPRESSION: Mild osteopenia with multilevel lumbar spondylosis without definiteevidence of acute fracture or subluxation. THIS IS AN ELECTRONICALLY VERIFIED FINAL REPORT 05/29/2023 11:26 AM - Electronically signed by Rock Jerome D.O. PS T: Report ID: [id number] Reading Location: [place] [address] Alexia Rao INVESTIGATOR IMG XR PROCEDURES Final Result * XR Shoulder Right 2+ Vw (05/29/2023 11:[address] MAN) Anatomical Region Laterality Modality Upper Extremities, Shoulder Right Digi nicky Radiography 05/29/2023 11:[address] Narrative 05/29/2023 11:[address] EXAM DESCRIPTION: XR SHOULDER RIGHT 2 OR MORE VIEWS REASON FOR STUDY: pain ?? Pt complains of right anterior shoulder pain for a few weeks. No known injury. Lower mid back pain and after falling last week. No surgery to lumbar or shoulder. ?? TECHNIQUE: 4 ??radiographic view(s) of the ??right shoulder . COMPARISON: None FINDINGS: Borderline inferior subluxation of the glenohumeral joint. ??No definite acute fracture seen. ??Severe glenohumeral joint osteoarthritis is noted. ??Moderate acromioclavicular joint osteoarthritis is seen. ??Trace interstitial opacities within the right lung. IMPRESSION: 1. ?? No gross acute osseous abnormality with severe right shoulder osteoarthritis. THIS IS AN ELECTRONICALLY VERIFIED FINAL REPORT 05/29/2023 11:41 AM - Electronically signed by ??Hank Rangel M.D. AG D: ??05/29/2023 11:41 AM T: Report ID: [id number] Reading Location: ??[id number] Procedure Note Hank Rangel MD - 05/29/2023 EXAM DESCRIPTION: XR SHOULDER RIGHT 2 OR MORE VIEWS REASON FOR STUDY: pain Pt complains of right anterior shoulder pain for a few weeks. No knowninjury. Lower mid back pain and after falling [...] Hank Rangel M.D. AG T: Report ID: [id number] Reading Location: [id number] Alexia Rao INVESTIGATOR IMG XR PROCEDURES Final Result documented in this encounter Visit Diagnoses Diagnosis Acute bilateral low back pain without sciatica- Primary Acute pain of right shoulder Acute pain of right shoulder Acute bilateral low back pain without sciatica documented in this encounter Care Teams Aesthetician Relationship Specialty Start Date End Date Pepper Morgan MD PCP - General 09/16/16 Hank Garibay MD [address] [facility] [address] [place] [address] Surgeon Orthopedic Surgery 03/27/17 Jacky Murry MD [address] [facility] [address] [place] [address] Ophthalmology 03/27/17 Puam Mckenzie MD [address] [facility] [address] [facility] [address] [place] [address] Surgeon Orthopedic Surgery 07/11/19 Neha Jackson, PT Physical Therapist Physical Therapy 12/01/21 Stalin Arauz MD [address] [facility] [address] [place] [address] Consulting Physician Cardiology 12/08/22 Tifafny Rojas PA [address] [facility] [address] [place] [address] Gastroenterology 12/30/22 documented as of this encounter
--- OUTSIDE RECORDS SUMMARY | 2024-06-18 18:52 | XMS_ITS | Encounter Summary ---
Author Organization [facility] Healthcare Address [address] [place] [address] Care Team Providers Care Station Captain Name Role Phone Pepper Morgan MD Primary Care Provider + [phone] Hank Garibay MD Unavailable [phone] Jacky Murry MD Unavailable [phone] Puma Mckenzie MD Unavailable [phone] Neha Jackson PT Unavailable Unavailable Stalin Arauz MD Unavailable [phone] Tiffany Rojas Unavailable [phone] Reason for Visit * Diagnostic Imaging (Routine) - Closed Specialty Diagnoses / Procedures Referred By Contac t Referred To Contact Diagnoses Acute bilateral low back pain without sciatica Procedures XR Spine Lumbar 2 or 3 Views Alexia Rao, WATER POLLUTION SCIENTIST [address] [place] [id number] Phone: tel: [facility] Medical Group Referral ID Status Reason Start Date Expiration Date Visits Re quested Visits Authorized [id number] Closed 05/29/2023 06/27/2024 1 1 Encounter Details Date Type Department Care Team (Latest Contact Info) Description 05/29/2023 11:20 AM INTERLIBRARY LOAN SPECIALIST Ancillary Procedure [facility] Medical [facility] Imaging at [address] [id number] Acute bilateral low back pain without sciatica Social History Tobacco Use Types Packs/Day Years [...] on file Legal Sex Female 4:33 AM INTERLIBRARY LOAN SPECIALIST Gender Identity Not on file Sexual [...] Name Priority Date/Time Associated Diagnosis Comments XR SPINE LUMBAR 2 OR 3 VIEWS Schedule TOM, Read TOM (Appt Today, Awaiting Results) 05/29/2023 11:23 AM INTERLIBRARY LOAN SPECIALIST Acute bilateral low back pain without sciatica documented in this encounter Results * XR Spine Lumbar 2 or 3 Views (05/29/2023 11:23 AM INTERLIBRARY LOAN SPECIALIST) Anatomical Region Laterality Modality Spine N/A Digital Radiogra phy 05/29/2023 11:2 4 AM INTERLIBRARY LOAN SPECIALIST Narrative 05/29/2023 11:26 AM INTERLIBRARY LOAN SPECIALIST EXAM DESCRIPTION: XR SPINE LUMBAR 2 OR [...] D: ??05/29/2023 11:26 AM T: Report ID: [id number] Reading Location: ??[id number] Procedure Note Rock Jerome, DO - 05/29/2023 [...] Rock Jerome D.O. PS T: Report ID: [id number] Reading Location: [place] [address] Alexia Rao WATER POLLUTION SCIENTIST IMG XR PROCEDURES Final Result documented in this encounter Visit Diagnoses Diagnosis Acute bilateral low back pain without sciatica documented in this encounter Care Teams Station Captain Relationship Specialty Start Date End Date Pepper Morgan MD PCP - General 09/16/16 Hank Garibay MD [address] [place] [address] [address] Surgeon Orthopedic Surgery 03/27/17 Jacky Murry MD [address] [place] [facility] [address] [place] [address] Ophthalmology 03/27/17 Puma Mckenzie MD [address] [place] [place] [facility] [address] [place] [address] Surgeon Orthopedic Surgery 07/11/19 Neha Jackson, PT Physical Therapist Physical Therapy 12/01/21 Stalin Arauz MD [address] [place] [address] Consulting Physician Cardiology 12/08/22 Tiffany Rojas PA [address] [place] [address] Gastroenterology 12/30/22 documented as of this encounter
--- OUTSIDE RECORDS SUMMARY | 2024-06-18 18:52 | XMS_ITS | Encounter Summary ---
Author Organization [facility] Address [address] [place] [address] Care Team Providers Care Squash Centre Manager Name Role Phone Pepper Morgan MD Primary Care Provider +- [phone] Hank Garibay MD Unavailable [phone] Jacky Murry MD Unavailable [phone] Puma Mckenzie MD Unavailable [phone] Neha Jackson PT Unavailable Unavailable Stalin Arauz MD Unavailable [phone] Tiffany Rojas Unavailable [phone] Reason for Visit * Reason Onset Date Comments Med Refill 04/17/2023 Encounter Details Date Type Department Care Team (Late st Contact Info) Description 04/17/2023 Telephone [facility] [address] [place] [id number] Pepper Morgan MD [address] [id number] Med Refill Social History Tobacco Use Types Packs/Day Years [...] in a half-way (including now)? 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 Gender Identity Not on file Sexual Orientation Not on file Occupation Industry Job Start Date Job End Date retired Not on file Not on file Not on file documented as of this encounter Ordered Prescriptions Prescription Sig Dispense Quantity Refills Last Filled Start Date End Date pramipexole (MIRAPEX) 0.25 mg tabletIndications: Hereditary essential tremor Take 1 tablet (0.25 mg total) by mouth 2 (two) times a day 60 tablet 04/17/2023 04/21/2023 documented in this encounter Miscellaneous Notes * Telephone Encounter - Yvette Zapata RN - 04/17/2023 3:55 PM CDT Spoke with pt, she knows that Rx has been sent to her local pharmacy. She will check with them as it seems that she isnt due for this med until Jun per the ins. Pt states that this should mean that the Rx has been shipped from the mail in pharmacy, but she hasn't recd it yet. She will see if she can pay out of pocket at the local pharmacy so she doesn't run out. She knows to call back if needed. * Telephone Encounter - Vickie Araujo - 04/17/2023 2:43 PM CDT We don' do that usually. They should send her at least a week worth until it comes in. If we call it might be a couple days. I can send it to the nurses to do because I won't be here. * Telephone Encounter - Sabine Dasilva NP - 04/17/2023 2:30 PM CDT [facility] and see what the hold up is? * Telephone Encounter - Vickie Araujo - 04/17/2023 1:51 PM CDT Patient is needing this sent in. They are not accepting it. Because insurance will not cover it. They said it is to soon. She was notified it is on its way she really needs the meds. * Telephone Encounter - Sabine Dasilva NP - 04/17/2023 1:44 PM CDT Sent to [facility]. * Telephone Encounter - Vickie Araujo - 04/17/2023 1:14 PM CDT Patient calling she is needing a refill on pramipexole 0.25 she got a weeks supply last time because it was not here. It hasn't come yet and she is needing a refill. [facility] [place]. Cbn: [phone] documented in this encounter Plan of Treatment [...] as of this encounter Visit Diagnoses Diagnosis Hereditary essential tremor Essential and other specified forms of tremor documented in this encounter Discontinued Medications Medication Sig Discontinue Reason Start Date End Da te pramipexole (MIRAPEX) 0.25 mg tabletIndications:Heredi tary essential tremor Take 1 tablet (0.25 mg total) by mouth 2 (two) times a day for 7 days 04/10/2023 04/17/2023 documented as of this encounter Care Teams Squash Centre Manager Relationship Specialty Start Date End Date Pepper Morgan MD PCP - General 09/16/16 Hank Garibay MD [address] [facility] [address] [place] [address] Surgeon Orthopedic Surgery 03/27/17 Jacky Murry MD [address] [facility] [address] [place] [address] Ophthalmology 03/27/17 Puma Mckenzie MD [address] [facility] [address] [place] [address] Surgeon Orthopedic Surgery 07/11/19 Neha Jackson, PT Physical Therapist Physical Therapy 12/01/21 Stalin Arauz MD [address] [facility] [address] [place] [address] Consulting Physician Cardiology 12/08/22 Tiffany Rojas PA [address] [facility] [address] [place] [address] Gastroenterology 12/30/22 documented as of this encounter
--- OUTSIDE RECORDS SUMMARY | 2024-06-18 18:52 | XMS_ITS | Encounter Summary ---
Author Organization [facility] Healthcare Address [address] [place] [address] Care Team Providers Care Production Sound Mixer Name Role Phone Pepper Morgan MD Primary Care Provider + [phone] Hank Garibay MD Unavailable [phone] Jacky Murry MD Unavailable [phone] Puma Mckenzie MD Unavailable [phone] Neha Jackson PT Unavailable Unavailable Stalin Arauz MD Unavailable [phone] Tiffany Rojas PA Unavailable [phone] Reason for Visit * Reason Comments Blood in Urine Pt thinks she has UT I because she is passing blood in her urine since this morning Encounter Details Date Type Department Care Team (Late st Contact Info) Description 05/08/2023 11:14 AM INORGANIC CHEMIST - 05/08/2023 1:49 PM [facility] Emergency [facility] Emergency Department [address] [place] [address] [place] [id number] [place] [address] Urinary dysfunction (Primary Dx); Hematuria, unspecified type Discharge Disposition: Discharge to home or self [...] often do you attend chur ch or yazdanism services? Never 12/29/2022 Do you belong to [...] in a detention (including now)? No 12/29/2022 Comments No Sex and Gender Information Value Date Recorded Sex Assigned at Not on file Legal Sex Female 4:33 AM INORGANIC CHEMIST Gender Identity Not on file Sexual Orientation Not on file Occupation Industry Job Start Date Job End Date retired Not on file Not on file Not on file documented as of this encounter Last Filed Vital Signs Vital Sign Reading Time Taken Comments Blood Pressure 126/65 05/08/2023 11:13 AM INORGANIC CHEMIST Pulse 78 05/08/2023 11:13 AM INORGANIC CHEMIST Temperature 36 ??C (96.8 ??F) 05/08/2023 11:13 AM INORGANIC CHEMIST Respiratory Rate 18 05/08/2023 11:13 AM INORGANIC CHEMIST Oxygen Saturation 99% 05/08/2023 11:13 AM INORGANIC CHEMIST Inhaled Oxygen Concentration - - Weight 81.6 kg (180 lb) 05/08/2023 11:13 AM INORGANIC CHEMIST Height 152.4 cm (5') 05/08/2023 11:13 AM INORGANIC CHEMIST Body Mass Index 35.15 05/08/2023 11:13 AM INORGANIC CHEMIST documented in this encounter Discharge Instructions * Attachments The following attachments cannot be sent through Care Everywhere. * Acute Hematuria (Discharge Care) ([place] Islander) documented in this encounter Medications at Time of Discharge cetirizine (ZyrTEC) 10 mg tabletIndications :Angioedema, subsequent encounter Take 1 tablet (10 mg total) by mouth nightly 90 tablet 3 12/08/2022 cholecalciferol (VITAMIN D-3) 2000 unit tablet Take 1 tablet (2,000 Units total) by mouth daily cephalexin (KEFLEX) 500 mg capsuleIndication s:Urinary Tract/Genitourina ry Infection Take 0.5 capsules (250 mg total) by mouth 3 (three) times a day for 10 days 30 capsule 05/08/2023 3 albuterol HFA (Proventil HFA) 90 mcg/actuation inhalerIndication [...] DAYS 05/08/2023 3 clonazePAM (KlonoPIN) 0.5 mg tablet Take 1 tablet (0.5 mg total) by mouth nightly 30 tablet 5 12/08/2022 3 felodipine (PLENDIL) 5 mg 24 hr tabletIndications [...] total) by mouth daily 4 pramipexole (MIRAPEX) 0.25 mg tabletIndications :Idiopathic Parkinsonism,Rest less Legs Syndrome Take 1 tablet (0.25 mg total) by mouth 2 (two) times a day 180 tablet 04/24/2023 3 propranoloL (INDERAL) 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 :Hereditary essential [...] 01/27/2023 3 documented as of this encounter Ordered Prescriptions Prescription Sig Dispense Quantity Refills Last Filled Start Date End Date cephalexin (KEFLEX) 500 mg capsuleIndications :Urinary Tract/Genitourinar y Infection Take 0.5 capsules (250 mg total) by mouth 3 (three) times a day for 10 days 30 capsule 05/08/2023 3 documented in this encounter Discharge Disposition Disposition Code Departure Means Destination Comment s Discharge to home or self care documented in this encounter ED Notes * Manuel Fritz RN - 05/08/2023 1:47 PM CST Tess Benedict is a 87 y.o. female has been medicated as ordered. Pt discharge and follow up instructions have been reviewed. Manuel Fritz RN 05/08/23 1348 GANIC CHEMIST * Ascencion Johnson MD - 05/08/2023 11:25 AM CST HPI Chief Complaint Patient presents with Blood in Urine Pt thinks she has UTI because she is passing blood in her urine since this morning Patient presents with complaints of hematuria. Patient also endorses urinary hesitancy. Patient denies actual dysuria. Patient denies discharge. Patient's states this onset was today. Patient gives frequency of proximally 3-4 episodes. Patient endorses similar episodes within the past 3 months. It had completely resolved though afterbeing treated for UTI. 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 11/16/2021 Peripheral arterial disease ([facility]) 11/09/2021 SOBOE (shortness of breath on exertion) 04/21/2021 Atrial fibrillation (CMS/HCC) ([facility]) 04/21/2021 Bariatric surgery status 04/04/2017 Knee joint replacement status, bilateral 04/04/2017 Spinal stenosis of lumbar region with neurogenic claudication 12/17/2016 History of malignant melanoma 02/10/2015 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 Chronic GERD 11/02/2013 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 11/02/2013 Restless legs syndrome 11/02/2013 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 CHF (congestive heart failure) (CMS/HCC) ([facility]) Cough DVT (deep venous thrombosis) (CMS/HCC) ([facility]) 1976 upper left arm near [...] TOTAL HIP ARTHROPLASTY Left 11/01/2021 Dr. Mckenzie, [facility]. Family History Problem Relation Age of Onset Cancer Other Family history of Cancer, unknown; Arthritis Other Family history of Arthritis; Abdominal Aortic Aneurysm Father COPD Father Social History Tobacco Use Smoking status: Former Packs/day: 2.00 Years: 30.00 Additional pack years: 0.00 Total pack years: 60.00 Types: Cigarettes Quit date: 1981 Years since quittin.9 Smokeless tobacco: Never Vaping Use Vaping Use: Never used Substance and Sexual Activity Alcohol use: Not Currently Drug use: Never Sexual activity: Defer Social History Social History Narrative Not on file Review of Systems Review of Systems All other systems reviewed and are negative. Physical Exam ED Triage Vitals [05/08/23 1113] Temp Pulse Resp BP SpO2 36 ??C (96.8 ??F) 78 18 126/65 99 % Temp src Heart Rate Source Patient Position BP Location FiO2 (%) Tympanic -- -- -- -- Height Height Method Weight Weight Method 1.524 m (5') Stated 81.6 kg (180 lb) Stated Patient Vitals for the past 24 hrs: BP Temp Temp src Pulse Resp SpO2 Height Weight 05/08/23 1113 126/65 36 ??C (96.8 ??F) Tympanic 78 18 99 % 152.4 cm (5') 81.6 kg (180 lb) Physical Exam Vitals and nursing note [...] General: No swelling. Cervical back: Neck supple. Skin: General: Skin is warm and dry. Capillary Refill: Capillary refill takes less than 2 seconds. Neurological: Mental Status: She is alert. Psychiatric: Mood and Affect: Mood normal. MDM Results for orders placed or performed during the hospital encounter of 05/08/23 CBC with auto differential Result Value Ref Range WBC 11.5 (H) 3.8 - 9.9 K/cumm Hgb 12.0 11.9 - 15.5 g/dL Hct 39.5 35.6 - 45.5 % Plt 381 150 - 400 K/cumm MPV 9.0 (L) 9.1 - 12.3 fL RBC 4.83 3.90 - 5.20 M/cumm MCV 81.8 81.3 - 96.4 fL MCH 24.8 (L) 27.1 - 33.3 pg MCHC 30.4 (L) 32.3 - 35.7 g/dL RDW CV 14.9 11.1 - 14.9 % RDW SD 44.8 35.7 - 48.1 fL NRBC abs 0.00 0.00 - 0.01 K/cumm Basic metabolic panel Result Value Ref Range Sodium 135 135 - 145 mmol/L Potassium, pl 4.3 3.3 - 4.9 mmol/L Chloride 94 (L) 97 - 110 mmol/L CO2 31 22 - 32 mmol/L Anion gap 10 2 - 15 mmol/L BUN 43 (H) 6 - 25 mg/dL Creatinine 1.25 (H) 0.60 - 1.10 mg/dL Glucose 94 70 - 199 mg/dL Calcium 9.2 8.5 - 10.3 mg/dL Urinalysis reflex to microscopic Result Value Ref Range Color, ur Yellow Yellow Clarity, ur Clear Clear Specific gravity, ur 1.003 1.003 - 1.030 pH, urine 7.0 Protein, ur ql Negative Negative Glucose, ur ql 1+ (A) Negative Ketones, ur Negative Negative Bilirubin, ur Negative Negative Blood, ur 3+ (A) Negative Urobilinogen, ur <2.0 <2.0 mg/dL Nitrite, ur Negative Negative Leukocyte esterase, ur 3+ (A) Negative UA reflex comment Reflex to microscopic UA will be performed. Differential, auto Result Value Ref Range Neutrophil abs 9.2 (H) 1.7 - 6.5 K/cumm Imm gran abs 0.1 0.0 - 0.1 K/cumm Lymphocyte abs 0.9 0.8 - 3.3 K/cumm Monocyte abs 0.9 (H) 0.2 - 0.8 K/cumm Eosinophil abs 0.3 0.0 - 0.5 K/cumm Basophil abs 0.1 0.0 - 0.1 K/cumm Neutrophil pct 80.7 % Imm gran pct 0.7 % Lymphocyte pct 7.8 % Monocyte pct 7.6 % Eosinophil pct 2.6 % Basophil pct 0.6 % eGFR Result Value Ref Range eGFR 42 mL/min/1.73 m2 Urinalysis, microscopic only Result Value Ref Range WBC, ur 21-50 (A) 0 - 5 /HPF RBC, ur >50 (A) 0 - 2 /HPF Epithelial cells, squamous, ur 1-5 0 - 5 /HPF Bacteria, ur Trace (A) Medical Decision Making 1:29 PM Patient to be treated for urinary tract infection. The importance of following up with Urology was emphasized to the patient. Patient's last ED note was reviewed. Patient was instructed to follow-up with urology. Bladder CA is on the patient's differential Patient's urinalysis from a proximally 2-3 months ago was not overwhelmingly consistent with cystitis. Final diagnoses: Urinary dysfunction Hematuria, unspecified type Ascencion Johnson MD 05/08/23 1330 GANIC CHEMIST documented in this encounter Plan of Treatment [...] Procedure Name Priority Date/Time Associated Diagnosis Comments URINALYSIS AND REFLEX TO MICROSCOPIC STAT 05/08/2023 1:04 PM INORGANIC CHEMIST URINALYSIS, MICROSCOPIC ONLY STAT 05/08/2023 1:04 PM INORGANIC CHEMIST EGFR STAT 05/08/2023 12:15 PM INORGANIC CHEMIST DIFFERENTIAL AUTO STAT 05/08/2023 12: 15 PM INORGANIC CHEMIST CBC WITH AUTO DIFFERENTIAL STAT 05/08/2023 12:15 PM INORGANIC CHEMIST BASIC METABOLIC PANEL STAT 05/08/2023 12:15 PM INORGANIC CHEMIST documented in this encounter Results * (ABNORMAL) Urinalysis, microscopic only (05/08/2023 1:04 PM INORGANIC CHEMIST) WBC, ur 21-50(A) 0 - 5 /HPF [facility] RBC, ur >50(A) 0 - 2 /HPF [facility] Epithelial cells, squamous, ur 1-5 0 - 5 /HPF [facility] Bacteria, ur Trace(A) [facility] Urine 05/08/2023 1:04 PM INORGANIC CHEMIST 05/08/2023 1:07 PM INORGANIC CHEMIST us Ascencion Johnson MD LAB URINE ORDERABLES Final [facility] [id number] [place] [address] * (ABNORMAL) Urinalysis reflex to microscopic (05/08/2023 1:04 PM INORGANIC CHEMIST) Color, ur Yellow Yellow [facility] Clarity, ur Clear Clear [facility] Specific gravity, ur 1.003 1.003 - 1.030 [facility] pH, urine 7.0 [facility] Comment: Interpretive Data ? Urine pH is affected by diet, medications, systemic acid-base disturbances, and renal tubular function. ??pH may affect urinary stone formation. ??For example, urine pH below 6.0 may help reduce the tendency for calcium phosphate stones and pH greater than 6.0 may reduce the tendency for uric acid stone formation. Source: [facility] Current Interpretive Data was last revised on 2017 Protein, ur ql Negative Negative [facility] Glucose, ur ql 1+(A) Negative [facility] Ketones, ur Negative Negative [facility] Bilirubin, ur Negative Negative [facility] Blood, ur 3+(A) Negative [facility] Urobilinogen, ur <2.0 <2.0 mg/dL [facility] Nitrite, ur Negative Negative [facility] Leukocyte esterase, ur 3+(A) Negative [facility] UA reflex comment Reflex to microscopic UA will be performed. [facility] Urine 05/08/2023 1:04 PM INORGANIC CHEMIST 05/08/2023 1:07 PM INORGANIC CHEMIST us Ascencion Johnson MD LAB URINE ORDERABLES Final Result Performing Organization Address City/State/[facility] Co ca Phone Number [facility] [id number] [place] [address] * eGFR (05/08/2023 12:15 PM INORGANIC CHEMIST) eGFR 42 mL/min/1. 73 m2 [facility] Comment: Interpretive Data Reference Interval Normal ?>/= [...] interpretive data was last reviewed 2021. Blood 05/08/2023 12:1 5 PM INORGANIC CHEMIST 05/08/2023 12:30 PM INORGANIC CHEMIST us Ascencion Johnson MD LAB BLOOD ORDERABLES Final Result [facility] [address] Department [place] [address] * (ABNORMAL) Differential, auto (05/08/2023 12:15 PM INORGANIC CHEMIST) Neutrophil abs 9.2(H) 1.7 - 6.5 K/cumm [facility] Imm gran abs 0.1 0.0 - 0.1 K/cumm [facility] Lymphocyte abs 0.9 0.8 - 3.3 K/cumm [facility] Monocyte abs 0.9(H) 0.2 - 0.8 K/cumm [facility] Eosinophil abs 0.3 0.0 - 0.5 K/cumm [facility] Basophil abs 0.1 0.0 - 0.1 K/cumm [facility] Neutrophil pct 80.7 % [facility] Comment: Interpretive Data Percent cell count reference ranges are not reported, since discordance with absolute values may lead to misinterpretation of CBC data. Current Interpretive Data was last revised on 2017. Imm gran pct 0.7 % [facility] Comment: Interpretive Data Percent cell count reference ranges are not reported, since discordance with absolute values may lead to misinterpretation of CBC data. Current Interpretive Data was last revised on 2017. Lymphocyte pct 7.8 % [facility] Comment: Interpretive Data Percent cell count reference ranges are not reported, since discordance with absolute values may lead to misinterpretation of CBC data. Current Interpretive Data was last revised on 2017. Monocyte pct 7.6 % [facility] Comment: Interpretive Data Percent cell count reference ranges are not reported, since discordance with absolute values may lead to misinterpretation of CBC data. Current Interpretive Data was last revised on 2017. Eosinophil pct 2.6 % [facility] Comment: Interpretive Data Percent cell count reference ranges are not reported, since discordance with absolute values may lead to misinterpretation of CBC data. Current Interpretive Data was last revised on 2017. Basophil pct 0.6 % [facility] Comment: Interpretive Data Percent cell count reference ranges are not reported, since discordance with absolute values may lead to misinterpretation of CBC data. Current Interpretive Data was last revised on 2017. Blood 05/08/2023 12:1 5 PM INORGANIC CHEMIST 05/08/2023 12:29 PM INORGANIC CHEMIST us Ascencion Johnson MD LAB BLOOD ORDERABLES Final Result [facility] [address] [place] [address] * (ABNORMAL) Basic metabolic panel (05/08/2023 12:15 PM INORGANIC CHEMIST) Sodium 135 135 - 145 mmol/L [facility] Potassium, pl 4.3 3.3 - 4.9 mmol/L [facility] Chloride 94(L) 97 - 110 mmol/L [facility] CO2 31 22 - 32 mmol/L [facility] Anion gap 10 2 - 15 mmol/L [facility] BUN 43(H) 6 - 25 mg/dL [facility] Creatinine 1.25(H) 0.60 - 1.10 mg/dL [facility] Glucose 94 70 - 199 mg/dL [facility] Comment: Interpretive Data Fasting glucose >/= 126 [...] 2022. Calcium 9.2 8.5 - 10.3 mg/dL [facility] Blood 05/08/2023 12:1 5 PM INORGANIC CHEMIST 05/08/2023 12:29 PM INORGANIC CHEMIST us Ascencion Jhonson MD LAB BLOOD ORDERABLES Final Result [facility] [address] [place] [address] * (ABNORMAL) CBC with auto differential (05/08/2023 12:15 PM INORGANIC CHEMIST) WBC 11.5(H) 3.8 - 9.9 K/cumm [facility] Hgb 12.0 11.9 - 15.5 g/dL [facility] Comment: Interpretive Data A reference range for this assay has not been established for patients with an unknown legal sex. Please refer to the laboratory test catalog for established sex-specific reference intervals. Current interpretive data was last revised on 2023. Hct 39.5 35.6 - 45.5 % [facility] Comment: Interpretive Data A reference range for this assay has not been established for patients with an unknown legal sex. Please refer to the laboratory test catalog for established sex-specific reference intervals. Current interpretive data was last revised on 2023. Plt 381 150 - 400 K/cumm [facility] MPV 9.0(L) 9.1 - 12.3 fL [facility] RBC 4.83 3.90 - 5.20 M/cumm [facility] Comment: Interpretive Data A reference range for this assay has not been established for patients with an unknown legal sex. Please refer to the laboratory test catalog for established sex-specific reference intervals. Current interpretive data was last revised on 2023. MCV 81.8 81.3 - 96.4 fL [facility] MCH 24.8(L) 27.1 - 33.3 pg [facility] MCHC 30.4(L) 32.3 - 35.7 g/dL [facility] RDW CV 14.9 11.1 - 14.9 % [facility] RDW SD 44.8 35.7 - 48.1 fL [facility] NRBC abs 0.00 0.00 - 0.01 K/cumm [facility] Blood 05/08/2023 12:1 5 PM INORGANIC CHEMIST 05/08/2023 12:29 PM INORGANIC CHEMIST us Ascencion Johnson MD LAB BLOOD ORDERABLES Final Result [facility] [address] [place] [address] documented in this encounter Visit Diagnoses Diagnosis Urinary dysfunction- Primary Hematuria, unspecified type documented in this encounter Administered Medications Inactive Administered Medications - up to 3 most recent administrations Medication Order MAR Action Action Date Dose Rate Site cephalexin (KEFLEX) capsule 250 mg 250 mg, oral, Once, On Mon05/08/23 at 1330, For 1 dose, Indications: Urinary Tract/Genitourinary InfectionIndications:Urinary Tract/Genitourinary Infection Given 05/08/2023 1:40 PM INORGANIC CHEMIST 250 mg documented in this encounter Active and Recently Administered Medications Times are shown in INORGANIC CHEMIST. Scheduled Medication Order 05/06/2023 05/07/2023 05/08/2023 cephalexin (KEFLEX) capsule 250 mg (COMPLETED) 250 mg, oral, Once, On Mon05/08/23 at 1330, For 1 dose, Indications: Urinary Tract/Genitourinary Infection 1340 (Given - Provid er: Manuel Fritz RN) documented in this encounter Care Teams Production Sound Mixer Relationship Specialty Start Date End Date Pepper Morgan MD PCP - General 09/16/16 Hank Garibay MD [address] [facility] [address] [place] [address] Surgeon Orthopedic Surgery 03/27/17 Jacky Murry MD [address] [facility] [address] [place] [address] Ophthalmology 03/27/17 Puma Mckenzie MD [address] [facility] [address] [place] [facility] [address] [place] [address] Surgeon Orthopedic Surgery 07/11/19 Neha Jackson, PT Physical Therapist Physical Therapy 12/01/21 Stalin Arauz MD [address] [facility] [address] [place] [address] Consulting Physician Cardiology 12/08/22 Tiffany Rojas PA [address] [facility] [address] [place] [address] Gastroenterology 12/30/22 documented as of this encounter
--- OUTSIDE RECORDS SUMMARY | 2024-06-18 18:52 | XMS_ITS | Encounter Summary ---
Author Organization [facility] Address [address] [place] [address] Care Team Providers Care Hotel Registration Clerk Name Role Phone Pepper Morgan MD Primary Care Provider [phone] Hank Garibay MD Unavailable [phone] Jacky Murry MD Unavailable [phone] Puma Mckenzie MD Unavailable [phone] Neha Jackosn PT Unavailable Unavailable Stalin Arauz MD Unavailable [phone] Tiffany Rojas Unavailable [phone] Reason for Visit * Reason Comments restless legs Encounter Details Date Type Department Care Team (Late st Contact Info) Description 04/21/2023 1:00 PM CDT Office Visit [place] [facility] [address] [place] [id number] Sabine Dasilva NP [address] [place] [place] [id number] 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 (Primary Dx); Restless legs syndrome Social History Tobacco Use [...] in a correction (including now)? 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 Gender Identity Not on file Sexual Orientation Not on file Occupation Industry Job Start Date Job End Date retired Not on file Not on file Not on file documented as of this encounter Last Filed Vital Signs Vital Sign Reading Time Taken Comments Blood Pressure 124/60 04/21/2023 12:38 PM CDT Pulse 100 04/21/2023 12:38 PM CDT Temperature 36.2 ??C (97.1 ??F) 04/21/2023 12:38 PM C DT Respiratory Rate 18 04/21/2023 12:38 PM CDT Oxygen Saturation - - Inhaled Oxygen Concentration - - Weight 85.9 kg (189 lb 6.4 oz) 04/21/2023 12:38 PM CDT Height - - Body Mass Index 36.99 02/07/2023 9:40 AM CDT documented in this encounter Ordered Prescriptions Prescription Sig Dispense Quantity Refills Last Filled Start Date End Date gabapentin (NEURONTIN) 300 mg capsuleIndications :Restless legs syndrome Take 1 capsule (300 mg total) by mouth 3 (three) times a day 90 capsule 04/21/2023 3 documented in this encounter Progress Notes * Sabine Dasilva NP - 04/21/2023 1:00 PM CDT Images from the original note were not included. Patient ID: Tess Benedict is a 87 y.o. female. Chief Complaint. Chief Complaint Patient presents with restless legs HPI. Patient is a 87 y.o. female HPI Presents for follow up on RLS after starting gabapentin. Gabapentin helped at first but not much now, pain/spasms still keep her awake at night. Said she took some her friends 100mg in the AM and yis463ui at night and still didn't notice a difference. Takes pramipexole as directed. No further symptoms or concerns today. Past Medical History: Diagnosis Date Allergic rhinitis [...] TOTAL HIP ARTHROPLASTY Left 11/01/2021 Dr. Mckenzie, PENDING SALE TO [facility]. Social History Tobacco Use Smoking status: Former Packs/day: 2.00 Years: 30.00 Additional pack years: 0.00 Total pack years: 60.00 Types: Cigarettes Quit date: 1981 Years since quittin.8 Smokeless [...] Current Medications: Outpatient Encounter Medications as of 04/21/2023 Medication Sig Dispense Refill albuterol HFA (Proventil [...] (two) times a day 90tablet 3 [DISCONTINUED] cyclobenzaprine (FLEXERIL) 10 mg tablet Take 1 tablet (10 mg total) by mouth nightlyas needed for muscle spasms 30 tablet 0 [DISCONTINUED] gabapentin (NEURONTIN) 300 mg capsule Take 1 capsule (300 mg total) by mouth [id number] capsule 1 [DISCONTINUED] pramipexole (MIRAPEX) 0.25 mg tablet Take 1 tablet (0.25 mg total) by mouth 2 (two) times a day 60 tablet 0 No facility-administered encounter medications on file as of 04/21/2023. Allergies Allergies Allergen Reactions Celecoxib Anaphylaxis Scopolamine [...] Immunization History Administered Date(s) Administered COVID-19 mRNA [id number] (DigitalTown) 0.3 mL (30 mcg) vaccine (12 years and up) DOSS 03/24/2023 Influenza, Quad, Adjuvantated, Intramuscular 03/10/2022 Influenza, Quadrivalent, High Dose, Preservative Free, Intrr 03/31/2020, 04/13/2021 Influenza, Quadrivalent, Split, Intramuscular 03/28/2016, 04/04/2017 Influenza, Split 05/18/2012 Influenza, Trivalent, Adjuvanted, Intramuscular 04/17/2019 Influenza, Trivalent, High Dose, Split, Preservative Free, Intramuscular 03/23/2015, 03/12/2018, 04/17/2019 Influenza, Trivalent, Intramuscular 03/25/2014, 04/17/2015 Influenza, Unspecified 03/13/2018, 03/19/2021, 03/10/2022, 03/24/2023 CallResto SARS-CoV-2 Monovalent Vaccination (12+ Yrs) DOSS-READY TO [...] throat. Eyes: Negative for visual disturbance. Respiratory: Negative for cough, chest tightness and shortness of breath. Cardiovascular: Negative for chest pain, palpitations and leg swelling. Gastrointestinal: Negative for abdominal pain, constipation, diarrhea, nausea and vomiting. Genitourinary: Negative for difficulty urinating. Musculoskeletal: Negative for arthralgias and myalgias. Skin: Negative for color change. Neurological: Negative for dizziness, syncope, weakness and headaches. Psychiatric/Behavioral: Negative for sleep disturbance. BP 124/60 Pulse 100 Temp 36.2 ??C (97.1 ??F) Resp 18 Wt 85.9 kg (189 lb 6.4 oz) LMP (LMP Unknown) BMI 36.99 kg/m?? Body mass index is 36.99 kg/m??. Physical Exam Vitals and nursing note reviewed. Constitutional: General: She is not in acute distress. Appearance: Normal appearance. She is not ill-appearing. HENT: Head: Normocephalic and atraumatic. Eyes: Conjunctiva/sclera: Conjunctivae normal. Pupils: Pupils are equal, round, and reactive to light. Cardiovascular: Rate and Rhythm: Normal rate and regular rhythm. Pulses: Normal pulses. Heart sounds: Normal heart sounds. Pulmonary: Effort: Pulmonary effort is normal. No respiratory distress. Breath sounds: Normal breath sounds. No wheezing or rhonchi. Chest: Chest wall: No tenderness. Musculoskeletal: General: Normal range of motion. Cervical back: Normal range of motion. No rigidity. Right lower leg: No edema. Left lower leg: No edema. Comments: Generalized arthritic findings, gait steady without assistive device. Skin: General: Skin is warm and dry. [...] Detected Hgb 02/16/2023 13.2 Hct 02/16/2023 43.0 Assessment & Plan: Diagnoses and all orders for this visit: 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 (Primary) Assessment & Plan: BP stable in office today on current therapy. No acute findings on exam. Continue current regimen and low salt diet. Restless legs syndrome Assessment & Plan: Worsening over 1 month, PMH of essential tremor noted also. Fine tremors noted to BUE, no other acute findings on exam. Will increase Gabapentin 300mg BID for 2 weeks, if still having problems she can got to TID. Continue pramipexole as rxd. Use good sleep hygiene. Follow in 1 month. Orders: - gabapentin (NEURONTIN) 300 mg capsule; Take 1 capsule (300 mg total) by mouth 3 (three) times a day Return in about 4 weeks (around 05/19/2023) for Recheck. Sabine Dasilva NP Cosigned by Pepper Morgan MD at 04/21/2023 1:14 PM CDT documented in this encounter Miscellaneous Notes * Assessment & Plan Note - Sabine Dasilva NP - 04/21/2023 1:05 PM CDT Associated Problem(s): 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 BP stable in office today on current therapy. No acute findings on exam. Continue current regimen and low salt diet. * Assessment & Plan Note - Sabine Dasilva NP - 04/21/2023 1:05 PM CDT Associated Problem(s): Restless legs syndrome Worsening over 1 month, PMH of essential tremor noted also. Fine tremors noted to BUE, no other acute findings on exam. Will increase Gabapentin 300mg BID for 2 weeks, if still having problems she can got to TID. Continue pramipexole as rxd. Use good sleep hygiene. Follow in 1 month. documented in this encounter Plan of Treatment [...] as of this encounter Visit Diagnoses Diagnosis 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- Primary Essential hypertension, benign Restless legs syndrome Restless legs syndrome (RLS) documented in this encounter Discontinued Medications Medication Sig Discontinue Reason Start Date End Da te pramipexole (MIRAPEX) 0.25 mg tabletIndications:Heredi tary essential tremor Take 1 tablet (0.25 mg total) by mouth 2 (two) times a day Therapy completed 04/17/2023 04/21/2023 gabapentin (NEURONTIN) 300 mg capsuleIndications:Restl ess legs syndrome Take 1 capsule (300 mg total) by mouth nightly Reorder 04/10/2023 04/21/2023 documented as of this encounter Care Teams Hotel Registration Clerk Relationship Specialty Start Date End Date Pepper Moragn MD PCP - General 09/16/16 Hank Garibay MD [address] [place] [address] [address] [facility] [address] [place] [address] Surgeon Orthopedic Surgery 03/27/17 Jacky Murry MD [address] [facility] [address] [facility] [facility] [address] [place] [address] Ophthalmology 03/27/17 Puma Mckenzie MD [address] [facility] [address] [facility] [facility] [address] [place] [address] Surgeon Orthopedic Surgery 07/11/19 Neha Jackson, PT Physical Therapist Physical Therapy 12/01/21 Stalin Arauz MD [address] [facility] [address] [place] [address] Consulting Physician Cardiology 12/08/22 Tiffany Rojas PA [address] [facility] [address] [place] [address] Gastroenterology 12/30/22 documented as of this encounter
--- OUTSIDE RECORDS SUMMARY | 2024-06-18 18:52 | XMS_ITS | Encounter Summary ---
Author Organization [facility] Address [address] [place] [address] Care Team Providers Care Anesthesiology Technologist Name Role Phone Pepper Morgan MD Primary Care Provider [phone] Hank Garibay MD Unavailable [phone] Jacky Murry MD Unavailable [phone] Puma Mckenzie MD Unavailable [phone] Neha Jackson PT Unavailable Unavailable Stalin Arauz MD Unavailable [phone] Tiffany Rojas Unavailable [phone] Encounter Details Date Type Department Care Team (Late st Contact Info) Description 04/03/2023 Telephone [place] [facility] [address] [place] [address] Pepper Morgan MD [address] [place] [address] Social History Tobacco Use Types Packs/Day Years [...] in a mcc (including now)? 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 Gender Identity Not on file Sexual Orientation Not on file Occupation Industry Job Start Date Job End Date retired Not on file Not on file Not on file documented as of this encounter Ordered Prescriptions Prescription Sig Dispense Quantity Refills Last Filled Start Date End Date pramipexole (MIRAPEX) 0.25 mg tablet Take 1 tablet (0.25 mg total) by mouth 2 (two) times a day for 7 days 14 tablet 04/03/2023 04/10/2023 documented in this encounter Miscellaneous Notes * Telephone Encounter - Lacie Alicea MA - 04/03/2023 10:54 AM CDT I called [facility] to find out what the hold up was on patient Mirapex. They never received request to refill. They will get it ready to send to patient. It should be shipped in 2 days. I will send temp supply to local pharmacy. Patient has been notified. 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 [phone] patient documented in this encounter Plan of [...] on filedocumented in this encounter Care Teams Anesthesiology Technologist Relationship Specialty Start Date End Date Pepper Morgan MD PCP - General 09/16/16 Hank Garibay MD 4 [facility] [address] [facility] [address] [place] [address] Surgeon Orthopedic Surgery 03/27/17 Jacky Murry MD 4 [facility] [address] [place] [address] Ophthalmology 03/27/17 Puma Mckenzie MD 4 [facility] [address] [place] [address] Surgeon Orthopedic Surgery 07/11/19 Neha Jackson, PT Physical Therapist Physical Therapy 12/01/21 Stalin Arauz MD [address] [facility] [address] [place] [address] Consulting Physician Cardiology 12/08/22 Tiffany Rojas PA [address] [facility] [address] [place] [address] Gastroenterology 12/30/22 documented as of this encounter
--- OUTSIDE RECORDS SUMMARY | 2024-06-18 18:52 | XMS_ITS | Encounter Summary ---
Author Organization [facility] Address [address] [address] Care Team Providers Care Teletype Technician Name Role Phone Pepper Morgan MD Primary Care Provider + [phone] Hank Garibay MD Unavailable [phone] Jacky Murry MD Unavailable [phone] Puma Mckenzie MD Unavailable [phone] Neha Jackson PT Unavailable Unavailable Stalin Arauz MD Unavailable [phone] Tiffany Rojas Unavailable [phone] Reason for Visit * Reason Onset Date Comments Med Refill 03/08/2023 Encounter Details Date Type Department Care Team (Late st Contact Info) Description 03/08/2023 Telephone [place] [facility] [address] [facility] [place] [phone] Pepper Morgan MD [address] [place] [address] Med Refill Social History Tobacco Use Types [...] chur ch or roman catholic services? 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 She was told at [facility] she has asthma. I spoke with Sabine Dasilva NP with whom the patient has an appt to see on the 14 of March. She would like patient to come in this week and see her. She is having to use this way to often andsymptoms not improving. I have called and left for patient to call back and change her appt to this week. 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 Is it out already? 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 [address] [facility] [address] [place] [address] Surgeon Orthopedic Surgery 03/27/17 Jacky Murry MD [address] [facility] [address] [place] [facility] [address] [place] [address] Ophthalmology 03/27/17 Puma Mckenzie MD [address] [facility] [address] [place] [facility] [address] [place] [address] Surgeon Orthopedic Surgery 07/11/19 Neha Jackson, PT Physical Therapist Physical Therapy 12/01/21 Stalin Arauz MD [address] [facility] [address] [place] [address] Consulting Physician Cardiology 12/08/22 Tiffany Rojas PA [address] [facility] [address] [place] [address] Gastroenterology 12/30/22 documented as of this encounter
--- OUTSIDE RECORDS SUMMARY | 2024-06-18 18:52 | XMS_ITS | Encounter Summary ---
Author Organization [facility] Address [address] [facility] [address] [place] [address] Care Team Providers Care Certified Physician'S Assistant Name Role Phone Pepper Morgan MD Primary Care Provider + [phone] Hank Garibay MD Unavailable [phone] Jacky Murry MD Unavailable [phone] Puma Mckenzie MD Unavailable [phone] Neha Jackson PT Unavailable Unavailable Stalin Arauz MD Unavailable [phone] Tiffany Rojas Unavailable [phone] Encounter Details Date Type Department Care Team (Late st Contact Info) Description 02/27/2023 Telephone [facility] at [address] [place] [address] Hai Dalton MA Social History Tobacco [...] often do you attend chur ch or cheondoism services? Never 12/29/2022 Do you belong to [...] a long term (including now)? 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 Patient needs to go back to normal doses of diuretics and she can restart the Jardiance. Patient to call back with any questions. * Telephone Encounter - Hai Dalton MA - 03/02/2023 8:13 AM CDT Patient called stating her weight is back to baseline now. She is saying she wants to try Jardianceagain. Please advise on meds. * Telephone Encounter - Hai Dalton MA - 02/27/2023 3:12 PM CDT Left message with instructions. * Telephone Encounter - Hai Dalton MA - 02/27/2023 11:02 AM CDT Patient called with c/o SOB and states her weight is up 4lbs. She states she is taking Lasix 40mg BID, metolazone 2.5mg every other day and spironolactone 25mg BID. Please advise documented in this encounter Plan [...] on filedocumented in this encounter Care Teams Certified Physician'S Assistant Relationship Specialty Start Date End Date Pepper Morgan MD PCP - General 09/16/16 Hank Garibay MD 4 [facility] [address] [place] [address] Surgeon Orthopedic Surgery 03/27/17 Jacky Murry MD 4 [facility] [address] [place] [address] Ophthalmology 03/27/17 Puma Mckenzie MD 4 [facility] [address] [place] [address] Surgeon Orthopedic Surgery 07/11/19 Neha Jackson, PT Physical Therapist Physical Therapy 12/01/21 Stalin Arauz MD [address] [facility] [address] [place] [address] Consulting Physician Cardiology 12/08/22 Tiffany Rojas PA [address] [facility] [address] [place] [address] Gastroenterology 12/30/22 documented as of this encounter
--- OUTSIDE RECORDS SUMMARY | 2024-06-18 18:52 | XMS_ITS | Encounter Summary ---
Author Organization [facility] Address [address] [place] [address] Care Team Providers Care Payroll Technician Name Role Phone Pepper Morgan MD Primary Care Provider [phone] Hank Garibay MD Unavailable [phone] Jacky Murry MD Unavailable [phone] Puma Mckenzie MD Unavailable [phone] Neha Jackson PT Unavailable Unavailable Stalin Arauz MD Unavailable [phone] Tiffany Rojas Unavailable [phone] Encounter Details Date Type Department Care Team (Late st Contact Info) Description 05/23/2023 Telephone [place] [facility] [address] [place] [address] Pepper Morgan MD [address] [place] [address] Social History Tobacco Use Types Packs/Day Years [...] often do you attend chur ch or voodoo services? 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 documented in this encounter Plan of [...] on filedocumented in this encounter Care Teams Payroll Technician Relationship Specialty Start Date End Date Pepper Morgan MD PCP - General 09/16/16 Hank Garibay MD [address] [facility] [address] [place] [address] [place] [address] Surgeon Orthopedic Surgery 03/27/17 Jacky Murry MD [address] [place] [address] [address] [facility] [place] [address] Ophthalmology 03/27/17 Puma Mckenzie MD [address] [facility] [address] [facility] [address] [place] [address] Surgeon Orthopedic Surgery 07/11/19 Neha Jackson, PT Physical Therapist Physical Therapy 12/01/21 Stalin Arauz MD [address] [facility] [address] [place] [address] Consulting Physician Cardiology 12/08/22 Tiffany Rojas PA [address] [facility] [address] [place] [address] Gastroenterology 12/30/22 documented as of this encounter
--- OUTSIDE RECORDS SUMMARY | 2024-06-18 18:52 | XMS_ITS | Encounter Summary ---
Author Organization [facility] Address [address] [place] [address] Care Team Providers Care Apartment Groundskeeper Name Role Phone Pepper Morgan MD Primary Care Provider + [phone] Hank Garibay MD Unavailable [phone] Jacky Murry MD Unavailable [phone] Puma Mckenzie MD Unavailable [phone] Neha Jackson PT Unavailable Unavailable Stalin Arauz MD Unavailable [phone] Tiffany Rojas Unavailable [phone] Reason for Visit * Reason Comments Asthma Encounter Details Date Type Department Care Team (Late st Contact Info) Description 04/10/2023 11:00 AM CDT Office Visit [facility] [address] [place] [id number] Sabine Dasilva NP [address] [place] [address] Mild persistent asthma without complication (Primary Dx); 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; Hereditary essential tremor; Restless legs syndrome Social History Tobacco Use [...] attend chur ch or moravian services? Never 12/29/2022 Do you belong to [...] a senior living (including now)? No 12/29/2022 Comments No Sex and Gender Information Value Date Recorded Sex Assigned at Not on file Legal Sex Female 4:33 AM ANIMAL RESCUER Gender Identity Not on file Sexual Orientation Not on file Occupation Industry Job Start Date Job End Date retired Not on file Not on file Not on file documented as of this encounter Last Filed Vital Signs Vital Sign Reading Time Taken Comments Blood Pressure 120/68 04/10/2023 10:21 AM CDT Pulse 80 04/10/2023 10:21 AM CDT Temperature 36.4 ??C (97.5 ??F) 04/10/2023 10:21 AM C DT Respiratory Rate 18 04/10/2023 10:21 AM CDT Oxygen Saturation 97% 04/10/2023 10:21 AM CDT Inhaled Oxygen Concentration - - Weight 85.3 kg (188 lb) 04/10/2023 10:21 AM CDT Height - - Body Mass Index 36.72 02/07/2023 9:40 AM CDT documented in this encounter Ordered Prescriptions Prescription Sig Dispense Quantity Refills Last Filled Start Date End Date gabapentin (NEURONTIN) 300 mg capsuleIndications :Restless legs syndrome Take 1 capsule (300 mg total) by mouth nightly 90 capsule 1 04/10/2023 3 pramipexole (MIRAPEX) 0.25 mg tabletIndications: Hereditary essential tremor Take 1 tablet (0.25 mg total) by mouth 2 (two) times a day for 7 days 14 tablet 04/10/2023 3 documented in this encounter Progress Notes * Sabine Dasilva, NOEL - 04/10/2023 11:00 AM CDT Images from the original note were not included. Patient ID: Tess Benedict is a 87 y.o. female. Chief Complaint. Chief Complaint Patient presents with Asthma HPI. Patient is a 87 y.o. female HPI Presents for follow up on SOB and RLS. Breathing better with advair. Gabapentin seems to be helpingwith leg pain, she is not needing her walker as much anymore. No new symptoms or concerns today. 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) (HCC) Cough DVT (deep venous thrombosis) ([facility]) ([facility]) 1976 upper left arm near elbow--- [...] KNEE ARTHROSCOPY Arthroscopy knee OTHER SURGICAL HISTORY 1992 strangulated hernia: hernia repair OTHER SURGICAL HISTORY 2003 Cancer, basal Cell: resection with skin graft REPLACEMENT TOTAL KNEE Left 02/07/2017 Dr. Meier REPLACEMENT TOTAL KNEE Right TOTAL HIP ARTHROPLASTY Right 06/2019 The successful right hip replacement Dr. Mckenzie TOTAL HIP ARTHROPLASTY Left 11/01/2021 Dr[facility] Mckenzie[facility] Social History Tobacco Use Smoking status: Former [...] Current Medications: Outpatient Encounter Medications as of 04/10/2023 Medication Sig Dispense Refill albuterol HFA (Proventil [...] capsule (300 mg total) by mouth nightly 90 capsule 1 metOLazone (ZAROXOLYN) 2.5 mg tablet Take 1 [...] 2 (two) times a day 180tablet 2 pramipexole (MIRAPEX) 0.25 mg tablet Take 1 tablet (0.25 mg total) by mouth 2 (two) times a day for7 days 14 tablet 0 propranoloL (INDERAL) 20 mg tablet [...] 1 capsule (300 mg total) by mouth [id number] capsule 0 [DISCONTINUED] pramipexole (MIRAPEX) 0.25 mg tablet Take 1 tablet (0.25 mg total) by mouth 2 (two) times a day for 7 days 14 tablet 0 No facility-administered encounter medications on file as of 04/10/2023. Allergies Allergies Allergen Reactions Celecoxib Anaphylaxis Scopolamine [...] Immunization History Administered Date(s) Administered COVID-19 mRNA [id number] (Second Funnel) 0.3 mL (30 mcg) vaccine (12 years and up) DOSS 03/24/2023 Influenza, Quad, Adjuvantated, Intramuscular 03/10/2022 Influenza, Quadrivalent, High Dose, Preservative Free, Intrr 03/31/2020, 04/13/2021 Influenza, Quadrivalent, Split, Intramuscular 03/28/2016, 04/04/2017 Influenza, Split 05/18/2012 Influenza, Trivalent, Adjuvanted, Intramuscular 04/17/2019 Influenza, Trivalent, High Dose, Split, Preservative Free, Intramuscular 03/23/2015, 03/12/2018, 04/17/2019 Influenza, Trivalent, Intramuscular 03/25/2014, 04/17/2015 Influenza, Unspecified 03/13/2018, 03/19/2021, 03/10/2022, 03/24/2023 Pfizer SARS-CoV-2 Monovalent Vaccination (12+ Yrs) DOSS-READY [...] headaches. Psychiatric/Behavioral: Negative for sleep disturbance. BP 120/68 Pulse 80 Temp 36.4 ??C (97.5 ??F) Resp 18 Wt 85.3 kg (188 lb) LMP (LMP Unknown) SpO2 97% BMI 36.72 kg/m?? Body mass index is 36.72 kg/m??. Physical Exam Vitals and nursing note [...] 96 Calcium 01/16/2023 9.8 eGFR 01/16/2023 35 Assessment & Plan: Diagnoses and all orders for this visit: Mild persistent asthma without complication (Primary) Assessment & Plan: Admits breathing is much better after starting advair. Still using albuterol approx every other day. Lungs clear on exam today, no other acute findings. No recent PFTs in chart. CXR from 02/16 was unremarkable. Continue current regimen for now. 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 Assessment & Plan: BP stable in office today on current therapy. No acute findings on exam. Continue current regimen and low salt diet. Hereditary essential tremor Assessment & Plan: Controlled on current regimen, no acute findings on exam. Will [facility] she can get [facility] order supply. Refilled gabapentin as well. Keep follows with neurology as scheduled. Orders: - pramipexole (MIRAPEX) 0.25 mg tablet; Take 1 tablet (0.25 mg total) by mouth 2 (two) times a dayfor 7 days Restless legs syndrome - gabapentin (NEURONTIN) 300 mg capsule; Take 1 capsule (300 mg total) by mouth nightly Return in about 3 months (around 07/13/2023), or if symptoms worsen or fail to improve, for Next scheduled follow up. Sabine Dasilva NP Cosigned by Pepper Morgan MD at 04/10/2023 11:10 PM CDT documented in this encounter Miscellaneous Notes * Assessment & Plan Note - Sabine Dasilva NP - 04/10/2023 11:22 AM CDT Associated Problem(s): Mild persistent asthma Admits breathing is much better after starting advair. Still using albuterol approx every other day. Lungs clear on exam today, no other acute findings. No recent PFTs in chart. CXR from 02/16 was unremarkable. Continue current regimen for now. * Assessment & Plan Note - Sabine Dasilva NP - 04/10/2023 11:19 AM CDT Associated Problem(s): Essential tremor Controlled on current regimen, no acute findings on exam. Will [facility] she can get [facility] order supply. Refilled gabapentin as well. Keep follows with neurology as scheduled. * Assessment & Plan Note - Sabine Dasilva NP - 04/10/2023 11:17 AM CDT Associated Problem(s): 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 BP stable [...] this encounter Visit Diagnoses Diagnosis Mild persistent asthma without complication- Primary 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 Essential hypertension, benign Hereditary essential tremor Essential and other specified forms of tremor Restless legs syndrome Restless legs syndrome (RLS) documented in this encounter Discontinued Medications Medication Sig Discontinue Reason Start Date End Da te pramipexole (MIRAPEX) 0.25 mg tablet Take 1 tablet (0.25 mg total) by mouth 2 (two) times a day for 7 days Reorder 04/03/2023 04/10/2023 gabapentin (NEURONTIN) 300 mg capsule Take 1 capsule (300 mg total) by mouth nightly Reorder 03/21/2023 04/10/2023 documented as of this encounter Care Teams Apartment Groundskeeper Relationship Specialty Start Date End Date Pepper Morgan MD PCP - General 09/16/16 Hank Garibay MD [address] [facility] [address] [place] [address] [place] [address] Surgeon Orthopedic Surgery 03/27/17 Jacky Murry MD [address] [facility] [address] [place] [address] [place] [address] Ophthalmology 03/27/17 Puma Mckenzie MD [address] [facility] [address] [place] [facility] [address] [place] [address] Surgeon Orthopedic Surgery 07/11/19 Neha Jackson, PT Physical Therapist Physical Therapy 12/01/21 Stalin Arauz MD [address] [facility] [address] [place] [address] Consulting Physician Cardiology 12/08/22 Tiffany Rojas PA [address] [facility] [address] [place] [address] Gastroenterology 12/30/22 documented as of this encounter
--- OUTSIDE RECORDS SUMMARY | 2024-06-18 18:52 | XMS_ITS | Encounter Summary ---
Author Organization [facility] Address [address] [place] [address] Care Team Providers Care Clinical Mental Health Counselor Name Role Phone Pepper Morgan MD Primary Care Provider [phone] Hank Garibay MD Unavailable [phone] Jacky Murry MD Unavailable [phone] Puma Mckenzie MD Unavailable [phone] Neha Jackson PT Unavailable Unavailable Stalin Arauz MD Unavailable [phone] Tiffany Rojas Unavailable [phone] Reason for Visit * Reason Onset Date Comments Med Refill 03/21/2023 Encounter Details Date Type Department Care Team (Late st Contact Info) Description 03/21/2023 Telephone [facility] [address] [place] [id number] Pepper Morgan MD [address] [place] [id number] Med Refill Social History Tobacco Use Types [...] often do you attend chur ch or faith services? Never 12/29/2022 Do you belong to [...] a care home (including now)? 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 Sent to [facility] * Telephone Encounter - Lacie Alicea MA - 03/21/2023 9:39 AM CDT Sabine was patient to take this long term acute care registered nurse you refilled this in January for 30 day supply. She has an appt with you on 04-10-23, Please advise.dcoers comfort station attendant * Telephone Encounter - Vickie Araujo - 03/21/2023 9:15 AM CDT Patient calling she is needing a refil on gabapentin. [facility]. Cbn: [phone] documented in this encounter Plan [...] End Da te gabapentin (NEURONTIN) 300 mg capsule Take 1 capsule (300 mg total) by mouth nightly Reorder 02/15/2023 03/21/2023 documented as of this encounter Care Teams Clinical Mental Health Counselor Relationship Specialty Start Date End Date Pepper Morgan MD PCP - General 09/16/16 Hank Garibay MD [address] [facility] [address] [place] [address] [place] [address] Surgeon Orthopedic Surgery 03/27/17 Jacky Murry MD [address] [facility] [address] [place] [facility] [address] [place] [address] Ophthalmology 03/27/17 Puma Mckenzie MD [address] [facility] [address] [place] [address] [place] [address] Surgeon Orthopedic Surgery 07/11/19 Neha Jackson, PT Physical Therapist Physical Therapy 12/01/21 Stalin Arauz MD [address] [facility] [address] [place] [address] Consulting Physician Cardiology 12/08/22 Tiffany Rojas PA [address] [facility] [address] [place] [address] Gastroenterology 12/30/22 documented as of this encounter
--- OUTSIDE RECORDS SUMMARY | 2024-06-18 18:52 | XMS_ITS | Encounter Summary ---
Author Organization [facility] Address [address] [address] Care Team Providers Care Supervisor Alum Plant Name Role Phone Pepper Morgan MD Primary Care Provider Hank Garibay MD Unavailable [phone] Jacky Murry MD Unavailable [phone] Puma Mckenzie MD Unavailable [phone] Neha Jackson PT Unavailable Unavailable Stalin Arauz MD Unavailable [phone] Tiffany Rojas Unavailable [phone] Reason for Visit * Reason Onset Date Comments med refill and question 02/21/2023 Encounter Details Date Type Department Care Team (Late st Contact Info) Description 02/21/2023 Telephone [facility] [address] [place] [phone] Pepper Morgan MD [address] [place] [address] med refill and question Social History Tobacco Use Types Packs/Day Years [...] often do you attend chur ch or anabaptist services? Never 12/29/2022 Do you belong to [...] in a long-term (including now)? No 12/29/2022 Comments No Sex and Gender Information Value Date Recorded Sex Assigned at Not on file Legal Sex Female 4:33 AM SEED CUTTER Gender Identity Not on file Sexual Orientation Not on file Occupation Industry Job Start Date Job End Date retired Not on file Not on file Not on file documented as of this encounter Ordered Prescriptions Prescription Sig Dispense Quantity Refills Last Filled Start Date End Date albuterol HFA (Proventil HFA) 90 mcg/actuation inhalerIndications :Cough Inhale 2 puffs every 6 (six) hours as needed for wheezing or shortness of breath 6.7 g 02/22/2023 3 documented in this encounter Miscellaneous Notes * Telephone Encounter - Katy Lopes RN - 02/22/2023 8:22 AM CDT Patient returned call. She requested a refill of her albuterol inhaler. She also said she took her Gabapentin 300 mg and it made her feel almost drunk. Patient decided she will continue to take the medicine right now and see if she can adjust to it. Refill sent to [facility] by [facility]. * Telephone Encounter - Katy Lopes RN - 02/21/2023 3:44 PM CDT Left message to return call. * Telephone Encounter - Vickie Araujo - 02/21/2023 10:29 AM CDT Patient calling she needs a refill on albeuterol. Two days after she seen us her heart doctor said she needed to be back on it. The gabapentin 300mg and when she takes it feels like she is drunk until noon. When she wakes up until noon real shaky and wobbles doesn't make much since they say she hasto let it get use to her body and she wants to know if that is correct? Cbn: [phone] or her cell is 689 documented in this encounter Plan of Treatment [...] as of this encounter Visit Diagnoses Diagnosis Cough documented in this encounter Discontinued Medications Medication Sig Discontinue Reason Start Date End Da te albuterol HFA (Proventil HFA) 90 mcg/actuation inhalerIndications:Coug h Inhale 2 puffs every 6 (six) hours as needed for wheezing or shortness of breath Reorder 05/10/2022 02/22/2023 documented as of this encounter Care Teams Supervisor Alum Plant Relationship Specialty Start Date End Date Pepper Morgan MD PCP - General 09/16/16 Hank Garibay MD [address] [facility] [address] [place] [address] [place] [address] Surgeon Orthopedic Surgery 03/27/17 Jacky Murry MD [address] [place] [address] [address] [place] [address] [place] [address] Ophthalmology 03/27/17 Puma Mckenzie MD [address] [facility] [address] [place] [facility] [address] [place] [address] Surgeon Orthopedic Surgery 07/11/19 Neha Jackson, PT Physical Therapist Physical Therapy 12/01/21 Stalin Arauz MD [address] [facility] [address] [place] [address] Consulting Physician Cardiology 12/08/22 Tiffany Rojas PA [address] [facility] [address] [place] [address] Gastroenterology 12/30/22 documented as of this encounter
--- OUTSIDE RECORDS SUMMARY | 2024-06-18 18:52 | XMS_ITS | Encounter Summary ---
Author Organization [facility] Address [address] [place] [address] Care Team Providers Care Surface Water Technician Name Role Phone Pepper Morgan MD Primary Care Provider + [phone] Hank Garibay MD Unavailable [phone] Jacky Murry MD Unavailable [phone] Puma Mckenzie MD Unavailable [phone] Neha Jackson PT Unavailable Unavailable Stalin Arauz MD Unavailable [phone] Tiffany Rojas Unavailable [phone] Encounter Details Date Type Department Care Team (Latest Contact Info) Description 05/29/2023 11:15 AM SALES MGR Ancillary Procedure [facility] Imaging at [address] [phone] Acute pain of right shoulder Social History [...] often do you attend chur ch or synagogue services? Never 12/29/2022 Do you belong to [...] place to sleep or slept in a assisted (including now)? No 12/29/2022 Personal Safety Answer Date Recorded Getting School Help Needed Denies 05/29 Comments No Sex and Gender Information Value Date Recorded Sex Assigned at Not on file Legal Sex Female 4:33 AM SALES MGR Gender Identity Not on file Sexual Orientation [...] Name Priority Date/Time Associated Diagnosis Comments XR SHOULDER RIGHT 2 OR MORE VIEWS Schedule TOM, Read TOM (Appt Today, Awaiting Results) 05/29/2023 11:22 AM SALES MGR Acute pain of right shoulder documented in this encounter Results * XR Shoulder Right 2+ Vw (05/29/2023 11:22 AM SALES MGR) Anatomical Region Laterality Modality Upper Extremities, Shoulder Right Digi nicky Radiography 05/29/2023 11:3 9 AM SALES MGR Narrative 05/29/2023 11:41 AM SALES MGR EXAM DESCRIPTION: XR SHOULDER RIGHT 2 OR [...] D: ??05/29/2023 11:41 AM T: Report ID: [id number] Reading Location: ??[id number] Procedure Note Hank Rangel MD - 05/29/2023 [...] Hank Rangel M.D. AG T: Report ID: [id number] Reading Location: [id number] Alexia Rao FRONT OFFICE SPEC IMG XR PROCEDURES Final Result documented in this encounter Visit Diagnoses Diagnosis Acute pain of right shoulder documented in this encounter Care Teams Surface Water Technician Relationship Specialty Start Date End Date Pepper Morgan MD PCP - General 09/16/16 Hank Garibay MD [address] [place] [address] [address] [address] Surgeon Orthopedic Surgery 03/27/17 Jacky Murry MD [address] [facility] [address] [place] [facility] [address] [place] [address] Ophthalmology 03/27/17 Puma Mckenzie MD [address] [facility] [address] [place] [facility] [address] [place] [address] Surgeon Orthopedic Surgery 07/11/19 Neha Jackson, PT Physical Therapist Physical Therapy 12/01/21 Stalin Arauz MD [address] [facility] [address] [place] [address] Consulting Physician Cardiology 12/08/22 Tiffany Rojas PA [address] [facility] [address] [place] [address] Gastroenterology 12/30/22 documented as of this encounter
--- OUTSIDE RECORDS SUMMARY | 2024-06-18 18:52 | XMS_ITS | Encounter Summary ---
Author Organization [facility] Address [address] [place] [address] Care Team Providers Care Seal Skinner Name Role Phone Pepper Morgan MD Primary Care Provider [phone] Hank Garibay MD Unavailable [phone] Jacky Murry MD Unavailable [phone] Puma Mckenzie MD Unavailable [phone] Neha Jackson PT Unavailable Unavailable Stalin Arauz MD Unavailable [phone] Tiffany Rojas Unavailable [phone] Reason for Visit * Reason Onset Date Comments UTI 05/08/2023 Encounter Details Date Type Department Care Team (Late st Contact Info) Description 05/08/2023 Telephone [facility] [address] [phone] [id number] Pepper Morgan MD [address] [place] [place] [address] UTI Social History Tobacco Use Types Packs/Day Years [...] often do you attend chur ch or episcopalian services? Never 12/29/2022 Do you belong to any clubs o r organizations such as buddhism groups, unions, fraternal or athletic groups, or [...] a nursing home (including now)? No 12/29/2022 Comments No Sex and Gender Information Value Date Recorded Sex Assigned at Not on file Legal Sex Female 4:33 AM DOOR OPENER Gender Identity Not on file Sexual Orientation Not on file Occupation Industry Job Start Date Job End Date retired Not on file Not on file Not on file documented as of this encounter Miscellaneous Notes * Telephone Encounter - Katy Lopes RN - 05/08/2023 2:55 PM DOOR OPENER Patient went to ER today and treated for UTI. OPENER * Telephone Encounter - Katy Lopes RN - 05/08/2023 11:34 AM DOOR OPENER Left message to return call. OPENER * Telephone Encounter - Anna Vargas - 05/08/2023 8:28 AM CST Pt currently has a UTI and can't stop being on the toilet. Pt stated she is peeing straight blood. No back pain. Pt said there is not a smell. Pt says she just has blood in her urine. CBN: [id number] [facility] [place] [facility] [place] OPENER documented in this encounter Plan of Treatment [...] on filedocumented in this encounter Care Teams Seal Skinner Relationship Specialty Start Date End Date Pepper Morgan MD PCP - General 09/16/16 Hank Garibay MD [address] [facility] [address] [place] [address] Surgeon Orthopedic Surgery 03/27/17 Jacky Murry MD [address] [facility] [address] [place] [address] Ophthalmology 03/27/17 Puma Mckenzie MD [address] [facility] [address] [place] [address] Surgeon Orthopedic Surgery 07/11/19 Neha Jackson, PT Physical Therapist Physical Therapy 12/01/21 Stalin Arauz MD [address] [facility] [address] [place] [address] Consulting Physician Cardiology 12/08/22 Tiffany Rojas PA [address] [facility] [address] [place] [address] Gastroenterology 12/30/22 documented as of this encounter
--- OUTSIDE RECORDS SUMMARY | 2024-06-18 18:52 | XMS_ITS | Encounter Summary ---
Author Organization [facility] Address [address] [place] [address] Phone Care Team Providers Care Major Donor Coordinator Name Role Phone Pepper Morgan MD Primary Care Provider + [phone] Hank Garibay MD Unavailable [phone] Jacky Murry MD Unavailable [phone] Puma Mckenzie MD Unavailable [phone] Neha Jackson PT Unavailable Unavailable Stalin Arauz MD Unavailable [phone] Tiffany Rojas Unavailable [phone] Encounter Details Date Type Department Care Team (Late st Contact Info) Description 05/29/2023 Telephone [place] [id number] [facility] Medical Office Building [address] [place] [address] Michaelle Chaudhary Social History Tobacco Use Types Packs/Day Years [...] attend chur ch or quaker services? Never 12/29/2022 Do you belong to [...] file Legal Sex Female 4:33 AM RESIDENTIAL PROPERTY TAX APPRAISER Gender Identity Not on file Sexual Orientation Not on file Occupation Industry Job Start Date Job End Date retired Not on file Not on file Not on file documented as of this encounter Miscellaneous Notes * Telephone Encounter - RoberlarisaErica - 05/29/2023 2:16 PM CST 1st attempt - patient does not want to proceed with us Dx: low back pain DENTIAL PROPERTY TAX APPRAISER documented in this encounter Plan of Treatment [...] on filedocumented in this encounter Care Teams Major Donor Coordinator Relationship Specialty Start Date End Date Pepper Morgan MD PCP - General 09/16/16 Hank Garibay MD [address] [facility] [address] [place] [address] Surgeon Orthopedic Surgery 03/27/17 Jacky Murry MD [address] [place] [address] [address] [place] [address] Ophthalmology 03/27/17 Puma Mckenzie MD [address] [facility] [address] [facility] [address] [place] [address] Surgeon Orthopedic Surgery 07/11/19 Neha Jackson PT Physical Therapist Physical Therapy 12/01/21 Stalin Arauz MD [address] [facility] [address] [place] [address] Consulting Physician Cardiology 12/08/22 Tiffany Rojas PA [address] [facility] [address] [place] [address] Gastroenterology 12/30/22 documented as of this encounter
--- OUTSIDE RECORDS SUMMARY | 2024-06-18 18:52 | XMS_ITS | Encounter Summary ---
Author Organization [facility] Address [address] [place] [address] Care Team Providers Care Legend Maker Name Role Phone Pepper Morgan MD Primary Care Provider + [phone] Hank Garibay MD Unavailable [phone] Jacky Murry MD Unavailable [phone] Puma Mckenzie MD Unavailable [phone] Neha Jackson PT Unavailable Unavailable Stalin Arauz MD Unavailable [phone] Tiffany Rojas Unavailable [phone] Reason for Visit * Reason Comments Follow-up Restless Legs Encounter Details Date Type Department Care Team (Late st Contact Info) Description 05/25/2023 8:45 AM BILLIARD PLAYER Office Visit [facility] [address] [place] [address] [address] [place] [address] Klaus Deshpande MD [address] [place] [address] [address] [place] [address] Gait disturbance (Primary Dx); Restless legs syndrome; Essential tremor Social History Tobacco Use Types [...] attend chur ch or episcopal services? Never 12/29/2022 Do you belong to [...] on file Legal Sex Female 4:33 AM BILLIARD PLAYER Gender Identity Not on file Sexual Orientation Not on file Occupation Industry Job Start Date Job End Date retired Not on file Not on file Not on file documented as of this encounter Last Filed Vital Signs Vital Sign Reading Time Taken Comments Blood Pressure 107/72 05/25/2023 8:12 AM BILLIARD PLAYER Pulse 74 05/25/2023 8:12 AM BILLIARD PLAYER Temperature - - Respiratory Rate 18 05/25/2023 8:12 AM BILLIARD PLAYER Oxygen Saturation 94% 05/25/2023 8:12 AM BILLIARD PLAYER Inhaled Oxygen Concentration - - Weight 81.6 kg (180 lb) 05/25/2023 8:12 AM BILLIARD PLAYER Height 152.4 cm (5') 05/25/2023 8:12 AM BILLIARD PLAYER Body Mass Index 35.15 05/25/2023 8:12 AM BILLIARD PLAYER documented in this encounter Ordered Prescriptions Prescription Sig Dispense Quantity Refills Last Filled Start Date End Date pramipexole (MIRAPEX) 0.5 mg tabletIndications: Idiopathic Parkinsonism,Restl ess Legs Syndrome Take 1 tablet (0.5 mg total) by mouth 2 (two) times a day 60 tablet 3 05/25/2023 08/24/2023 documented in this encounter Progress Notes * Klaus Deshpande MD - 05/25/2023 8:45 AM CST Subjective/Objective Patient ID: Tess Benedict is a 87 y.o. female. Chief Complaint I am seeing this 87 y.o. female in consultation requested by Dr. Pepper Morgan MD for tremor and leg discomfort. HPI Tremor: For details, see 11/11/2022. Since last visit on 11/11/2022, Tremor is worse. She was put on on Propranolol 20 mg bid. It did nothelp much. The tremor has been going on at least since 1976. Over the time, it is getting a lot worse. It affected both hands equally. She is right handed. The tremor was aggravated by doing something like holding on card, spoon. Her father and eldest son have similar tremor in the family. She has been having trouble with walking. She had bilateral knee and hip replacement at different time. She had first knee replacement about 10 years. She fell before the surgery. She already had trouble with walking before the surgery. No Asthma. Leg discomfort: For details, see 11/11/2022 note Since last visit on 11/11/2022, the restless leg is worse. She described it as jerk feeling. It happened when she was at rest or in the bed. It does not bother her while walking. She is taking Premipexole 0.25 mg bid (?). She took it at noon and 5 pm. 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 CHF (congestive heart failure) (CMS/HCC) ([facility]) Cough DVT (deep venous thrombosis) (CMS/HCC) ([facility]) 1976 upper left arm near elbow--- [...] tablet (81 mg total) by mouth daily cephalexin (KEFLEX) 250 mg capsule TAKE 1 CAPSULE BY MOUTH THREE TIMES A DAY FOR 10 DAYS cetirizine (ZyrTEC) 10 mg tablet Take 1 tablet (10 mg total) by mouth nightly 90 tablet 3 cholecalciferol (VITAMIN D-3) 2000 unit tablet Take 1 tablet (2,000 Units total) by mouth daily clonazePAM (KlonoPIN) 0.5 mg tablet Take 1 tablet (0.5 mg total) by mouth nightly 30 tablet 5 empagliflozin (JARDIANCE) 10 mg tablet 1 tablet (10 mg total) felodipine (PLENDIL) 5 mg 24 hr tablet [...] mouth 2 (two) times a day 180tablet 0 propranoloL (INDERAL) 20 mg tablet Take 1 tablet (20 mg total) by mouth 2 (two) times a day as needed (Tremor) 180 tablet 2 rivaroxaban (XARELTO) 20 mg tablet Take 1 tablet (20 mg total) by mouth daily 30 tablet 11 spironolactone (ALDACTONE) 25 mg tablet Take 1 tablet (25 mg total) by mouth 2 (two) times a day 90tablet 3 No current facility-administered medications for this visit. has a current medication list which includes the following prescription(s): albuterol hfa, aspirin,cephalexin, cetirizine, cholecalciferol, clonazepam, empagliflozin, felodipine, fluticasone propion-salmeterol, furosemide, gabapentin, metolazone, pantoprazole dr, polyethylene glycol, potassium chloride er, pramipexole, propranolol, rivaroxaban, spironolactone, and [DISCONTINUED] cyclobenzaprine. Family History Problem Relation Age of Onset Cancer Other Family history of Cancer, unknown; Arthritis Other Family history of Arthritis; Abdominal Aortic Aneurysm Father COPD Father Social History Tobacco Use Smoking status: Former Packs/day: 2.00 Years: 30.00 Additional pack years: 0.00 Total pack years: 60.00 Types: Cigarettes Quit date: 1981 Years since quittin.9 Smokeless tobacco: Never Substance and Sexual Activity Drug use: Never Sexual activity: Defer Alcohol Use: Not At Risk (12/28/2022) AUDIT-C Frequency of Alcohol Consumption: Monthly or less Average Number of Drinks: 1 or 2 Frequency of Binge Drinking: Never BP 107/72 (BP Location: Right leg, Patient Position: Sitting) Pulse 74 Resp 18 Ht 152.4 cm (5') Wt 81.6 kg (180 lb) LMP (LMP Unknown) SpO2 94% BMI 35.15 kg/m?? Physical Exam Mental status: alert, speech [...] tremor of hands suggestive of essential tremor. Discomfort of legs: Consistent with restless leg syndrome. She responded to pramipexole. Gait disturbance: Most likely has something to do with her obesity on the background of bilateral hip and knee replacement, as well as aging. No evidence of Parkinson's disease. Diagnoses and all orders for this visit: Gait disturbance (Primary) - Ambulatory referral order to Physical Therapy -; Future Essential tremor - discussed treatment options. We decided to observe since the tremor is mild. Reassured patient that there was no evidence of Parkinson's disease. Instructed patient to call if worse. - continue propranolol 20 mg b.i.d. Restless legs syndrome - increased to pramipexole 0.5 mg/tablet, 1 tablet b.i.d. - discussed side effect including sudden sleep attack and impulse control problem. Instructed patient to call if she experiences any side effect. Past investigations: 1. 09/15/2021 CT of head without: No acute intracranial process. 2. 05/23/2022 iron 62 (50-150), TIBC 384 (250-400), iron saturation 16% (16-45). Follow-up in 3 months. IARD PLAYER documented in this encounter Plan of Treatment [...] as of this encounter Visit Diagnoses Diagnosis Gait disturbance- Primary Abnormality of gait Restless legs syndrome Restless legs syndrome (RLS) Essential tremor documented in this encounter Discontinued Medications Medication Sig Discontinue Reason Start Date End Da te pramipexole (MIRAPEX) 0.25 mg tabletIndications:Idiopa thic Parkinsonism,Restless Legs Syndrome Take 1 tablet (0.25 mg total) by mouth 2 (two) times a day 04/24/2023 05/25/2023 documented as of this encounter Historical Medications * This list may reflect changes made after this encounter. empagliflozin (JARDIANCE) 10 mg tablet 1 tablet (10 mg total) 05/29/2023 cephalexin (KEFLEX) 250 mg capsule TAKE 1 CAPSULE BY MOUTH THREE TIMES A DAY FOR 10 DAYS 05/08/2023 06/13/2023 added in this encounter Care Teams Legend Maker Relationship Specialty Start Date End Date Pepper Morgan MD PCP - General 09/16/16 Hank Garibay MD [address] [facility] [address] [place] [address] Surgeon Orthopedic Surgery 03/27/17 Jacky Murry MD [address] [facility] [address] [place] [address] Ophthalmology 03/27/17 Puma Mckenzie MD [address] [facility] [address] [place] [address] Surgeon Orthopedic Surgery 07/11/19 Neha Jackson, PT Physical Therapist Physical Therapy 12/01/21 Stalin Arauz MD [address] [facility] [address] [place] [address] Consulting Physician Cardiology 12/08/22 Tiffany Rojas PA [address] [facility] [address] [place] [address] Gastroenterology 12/30/22 documented as of this encounter
--- OUTSIDE RECORDS SUMMARY | 2024-06-18 18:53 | XMS_ITS | Encounter Summary ---
Author Organization [facility] Address [address] [place] [address] Care Team Providers Care Change Management Director Name Role Phone Pepper Morgan MD Primary Care Provider + [phone] Hank Garibay MD Unavailable [phone] Jacky Murry MD Unavailable [phone] Puma Mckenzie MD Unavailable [phone] Neha Jackson PT Unavailable Unavailable Stalin Arauz MD Unavailable [phone] Tiffany Rojas Unavailable [phone] Encounter Details Date Type Department Care Team (Late st Contact Info) Description 01/23/2023 Plan of Care Documentation [facility] Physical Therapy - [place] [address] [place] [address] Social History Tobacco Use Types Packs/Day Years [...] any clubs o r organizations such as christian groups, unions, fraternal or athletic groups, or [...] on file Legal Sex Female 4:33 AM 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 Gender Identity Not on file Sexual Orientation [...] on filedocumented in this encounter Care Teams Change Management Director Relationship Specialty Start Date End Date Pepper Morgan MD PCP - General 09/16/16 Hank Garibay MD [address] [facility] [address] [facility] [address] [place] [address] Surgeon Orthopedic Surgery 03/27/17 Jacky Murry MD [address] [facility] [address] [facility] [address] [place] [address] Ophthalmology 03/27/17 Puma Mckenzie MD [address] [facility] [address] [place] [address] Surgeon Orthopedic Surgery 07/11/19 Neha Jackson, PT Physical Therapist Physical Therapy 12/01/21 Stalin Arauz MD [address] [facility] [address] [place] [address] Consulting Physician Cardiology 12/08/22 Tiffany Rojas PA [address] [facility] [place] [address] Gastroenterology 12/30/22 documented as of this encounter
--- OUTSIDE RECORDS SUMMARY | 2024-06-18 18:53 | XMS_ITS | Encounter Summary ---
Author Organization [facility] Address [address] [place] [address] Care Team Providers Care New Car Make Ready Mechanic Name Role Phone Pepper Morgan MD Primary Care Provider + [phone] Hank Garibay MD Unavailable [phone] Jacky Murry MD Unavailable [phone] Puma Mckenzie MD Unavailable [phone] Neha Jackson PT Unavailable Unavailable Stalin Arauz MD Unavailable [phone] Tiffany Rojas PA Unavailable [phone] Reason for Visit * Reason Comments PT Treatment * Physical Therapy (Routine) - Closed Specialty Diagnoses / Procedures Referred By Olga t Referred To Contact Physical Therapy Diagnoses Gait disturbance Klaus Deshpande MD [address] [place] [address] [address] [place] [address] Phone: tel: fax: External Order Referral ID Status Reason Start Date Expiration Date V isits Requested Visits Authorized [id number] Closed Specialty Services Required 11/11/2022 12/11/2023 24 24 Encounter Details Date Type Department Care Team (Late st Contact Info) Description 02/13/2023 11:00 AM CDT Therapy [facility] Physical [place] [address] Chava Kennedy, KEVIN Gait disturbance (Primary Dx) Social History Tobacco Use Types [...] attend chur ch or anglican services? Never 12/29/2022 Do you belong to [...] health care facility (including now)? No 12/29/2022 Comments No Sex and Gender Information Value Date Recorded Sex Assigned at Not on file Legal Sex Female 4:33 AM CLERK [employer]ERAL [employer]AIL Gender Identity Not on file Sexual Orientation Not on file Occupation Industry Job Start Date Job End Date retired Not on file Not on file Not on file documented as of this encounter Progress Notes * Chava Kennedy, PT - 02/13/2023 11:00 AM CDT Physical Therapy Visit 02/13/2023 Tess Limonamanda 1935 Subjective: Tess reports she thinks is doing better and people have commented on how her walking looks better. Pain: Denies pain. Objective: See treatment provided. Treatment Provided: Recumbent stepper x 5 min Seated: added 1.5# to B LE Marching x 20 LAQ x 20 each Toe raises x 20 each Sit to Stand x 5 repetitions Standing: Heel raises Marching Hip abduction Romberg on foam, EO and EC Tandem Rockerboard Step taps @ bar Forward step ups x 10 B LE 2 Sidestepping HEP includes: Access Code: [email or web address] - Seated March - 1-2 x daily - 7 x weekly - 20 reps - Seated Long Arc Quad - 1-2 x daily - 7 x weekly - 20 reps - Seated Toe Raise - 1-2 x daily - 7 x weekly - 20 reps - Sit to Stand - 1-2 x daily - 7 x weekly - 2 sets - 5 reps Use recumbent bike at home 4+x/week, working up your tolerance Assessment: Improved noted throughout with all activities. Reports increased fatigue on this date since she had been up since 4am. Plan: Continue PT POC. Start Time: 1055 End Time: 1127 Chava Kennedy, PT documented in this encounter Plan of Treatment [...] Diagnosis Gait disturbance- Primary Abnormality of gait documented in this encounter Care Teams New Car Make Ready Mechanic Relationship Specialty Start Date End Date Pepper Morgan MD PCP - General 09/16/16 Hank Garibay MD [address] [facility] [address] [place] [address] Surgeon Orthopedic Surgery 03/27/17 Jacky Murry MD [address] [facility] [address] [place] [address] Ophthalmology 03/27/17 Puma Mckenzie MD [address] [facility] [address] [place] [address] Surgeon Orthopedic Surgery 07/11/19 Neha Jackson, PT Physical Therapist Physical Therapy 12/01/21 Stalin Arauz MD [address] [facility] [address] [place] [address] Consulting Physician Cardiology 12/08/22 Tiffany Rojas PA [address] [facility] [address] [place] [address] Gastroenterology 12/30/22 documented as of this encounter
--- OUTSIDE RECORDS SUMMARY | 2024-06-18 18:53 | XMS_ITS | Encounter Summary ---
Author Organization [facility] Address [address] [address] Care Team Providers Care Adult School Teacher Name Role Phone Pepper Morgan MD Primary Care Provider [phone] Hank Garibay MD Unavailable [phone] Jacky Murry MD Unavailable [phone] Puma Mckenzie MD Unavailable [phone] Neha Jackson PT Unavailable Unavailable Stalin Arauz MD Unavailable [phone] Tiffany Rojas Unavailable [phone] Reason for Visit * Reason Comments Restless Legs Encounter Details Date Type Department Care Team (Late st Contact Info) Description 02/15/2023 1:00 PM CDT Office Visit [facility] [place] [address] Sabine Dasilva NP [address] [place] [id number] Restless legs syndrome (Primary Dx); Hereditary essential tremor; 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 Social History Tobacco Use Types [...] slept in a prison (including now)? No 12/29/2022 Comments No Sex and Gender Information Value Date Recorded Sex Assigned at Not on file Legal Sex Female 4:33 AM DATA COLLECTION SPECIALIST Gender Identity Not on file Sexual Orientation Not on file Occupation Industry Job Start Date Job End Date retired Not on file Not on file Not on file documented as of this encounter Last Filed Vital Signs Vital Sign Reading Time Taken Comments Blood Pressure 102/62 02/15/2023 12:50 PM CDT Pulse 85 02/15/2023 12:50 PM CDT Temperature 36.2 ??C (97.1 ??F) 02/15/2023 12:50 PM C DT Respiratory Rate 20 02/15/2023 12:50 PM CDT Oxygen Saturation 98% 02/15/2023 12:50 PM CDT Inhaled Oxygen Concentration - - Weight 85 kg (187 lb 6.4 oz) 02/15/2023 12:50 PM CDT Height - - Body Mass Index 36.6 02/07/2023 9:40 AM CDT documented in this encounter Patient Instructions * Patient Instructions* Sabine Dasilva NP - 02/15/2023 1:00 PM CDT Follow in 1 month for legs. documented in this encounter Ordered Prescriptions Prescription Sig Dispense Quantity Refills Last Filled Start Date End Date gabapentin (NEURONTIN) 300 mg capsule Take 1 capsule (300 mg total) by mouth nightly 30 capsule 02/15/2023 3 documented in this encounter Progress Notes * Sabine Dasilva NP - 02/15/2023 1:00 PM CDT Images from the original note were not included. Patient ID: Tess Benedict is a 87 y.o. female. Chief Complaint. Chief Complaint Patient presents with Restless Legs HPI. Patient is a 87 y.o. female HPI Presents c/o worsening RLS for appox 1 month. No pain or numbness. PMH of essential tremor noted, taking meds as rxd. Tried calling Neuro but no one answers the phone at his office. Denies numb/tingling. No further symptoms or concerns today. 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 Mckenzie, [facility]. Social History Tobacco Use Smoking status: [...] Current Medications: Outpatient Encounter Medications as of 02/15/2023 Medication Sig Dispense Refill cetirizine (ZyrTEC) 10 mg tablet Take 1 [...] total) by mouth daily 90 tablet 2 gabapentin (NEURONTIN) 300 mg capsule Take 1 capsule (300 mg total) by mouth nightly [address] (PROTONIX) 40 mg EC tablet Take 1 tablet (40 mg total) by mouth daily 30 tablet 11 polyethylene glycol (MIRALAX) 17 gram packet Take 1 packet (17 g total) by mouth daily as needed for constipation pramipexole (MIRAPEX) 0.25 mg tablet Take 1 [...] shortness of breath 6.7 g 0 [DISCONTINUED] cyclobenzaprine (FLEXERIL) 10 mg tablet Take 1 tablet (10 mg total) by mouth nightlyas needed for muscle spasms 30 tablet 0 [DISCONTINUED] furosemide (LASIX) 20 mg tablet Take two tablet in am( to make 40 mg) and one tabletin pm (Patient taking differently: Take 1 tablet (20 mg total) by mouth 2 (two) times a day Take two tablet in am( to make 40 mg) and one tablet in pm) 270 tablet 3 [DISCONTINUED] gabapentin enacarbil 300 mg tablet extended release Take 300 mg by mouth nightly 90 tablet 0 No facility-administered encounter medications on file as of 02/15/2023. Allergies Allergies Allergen Reactions Celecoxib Anaphylaxis Scopolamine [...] 03/25/2014, 04/17/2015 Influenza, Unspecified 03/13/2018, 03/19/2021, 03/10/2022 Meteor SARS-CoV-2 Monovalent Vaccination (12+ Yrs) DOSS-READY TO [...] for color change. Neurological: Negative for dizziness, tremors, syncope, weakness, numbness and headaches. Psychiatric/Behavioral: Negative for dysphoric mood and sleep disturbance. The patient is not nervous/anxious. BP 102/62 Pulse 85 Temp 36.2 ??C (97.1 ??F) Resp 20 Wt 85 kg (187 lb 6.4 oz) LMP (LMP Unknown) SpO2 98% BMI 36.60 kg/m?? Body mass index is 36.6 kg/m??. Physical Exam Vitals and nursing note [...] distress. Breath sounds: Normal breath sounds. No stridor. No wheezing, rhonchi or rales. Chest: Chest wall: No [...] and Affect: Mood normal. Behavior: Behavior normal. Lab on 01/16/2023 Component Date Value NT-proBNP [...] Diagnoses and all orders for this visit: Restless legs syndrome (Primary) Assessment & Plan: Worsening over 1 month, PMH of essential tremor noted also. Fine tremors noted to BUE, no other acute findings on exam. Will add Gabapentin 300mg nightly to current regimen. Use good sleep hygiene. Follow in 1 month. 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 Taking mirapex, propranolol, and clonazepam as directed. C/o increased RLS, see plan above- will add Gabapentin 300mg nightly. Offered referral to different neurologist- patient refused. No acute findings on exam today, fine tremors to BUE. Continue current medication regimen. Avoid excessive caffeine use. 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 Assessment & Plan: BP stable in office today on current therapy. No acute findings on exam. Continue current regimen and low salt diet. Other orders - gabapentin (NEURONTIN) 300 mg capsule; Take 1 capsule (300 mg total) by mouth nightly Return in about 4 weeks (around 03/15/2023) for Recheck. Sabine Dasilva NP Cosigned by Pepper Morgan MD at 02/27/2023 10:24 PM CDT documented in this encounter Miscellaneous Notes * Assessment & Plan Note - Sabine Dasilva NP - 02/26/2023 5:25 PM CDT Associated Problem(s): Restless legs syndrome Worsening over 1 month, PMH of essential tremor noted also. Fine tremors noted to BUE, no other acute findings on exam. Will add Gabapentin 300mg nightly to current regimen. Use good sleep hygiene. Follow in 1 month. * Assessment & Plan Note - Sabine Dasilva NP - 02/26/2023 5:21 PM CDT Associated Problem(s): Essential tremor Chronic condition managed by Neurology. Taking mirapex, propranolol, and clonazepam as directed. C/o increased RLS, see plan above- will add Gabapentin 300mg nightly. Offered referral to different neurologist- patient refused. No acute findings on exam today, fine tremors to BUE. Continue current medication regimen. Avoid excessive caffeine use. * Assessment & Plan Note - Sabine Dasilva NP - 02/26/2023 5:18 PM CDT Associated Problem(s): 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 BP [...] legs syndrome- Primary Restless legs syndrome (RLS) Hereditary essential tremor Essential and other specified forms of tremor 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 Essential hypertension, benign documented in this encounter Discontinued Medications Medication Sig Discontinue Reason Start Date End Da te gabapentin enacarbil 300 mg tablet extended release Take 300 mg by mouth nightly Cost of medication 02/01/2023 02/15/2023 documented as of this encounter Care Teams Adult School Teacher Relationship Specialty Start Date End Date Pepper Morgan MD PCP - General 09/16/16 Hank Garibay MD [address] [facility] [address] [place] [facility] [address] [place] [address] Surgeon Orthopedic Surgery 03/27/17 Jacky Murry MD [address] [facility] [address] [place] [facility] [address] [place] [address] Ophthalmology 03/27/17 Puma Mckenzie MD [address] [facility] [address] [place] [address] Surgeon Orthopedic Surgery 07/11/19 Neha Jackson, PT Physical Therapist Physical Therapy 12/01/21 Stalin Arauz MD [address] [facility] [address] [place] [address] Consulting Physician Cardiology 12/08/22 Tiffany Rojas PA [address] [facility] [place] [address] Gastroenterology 12/30/22 documented as of this encounter
--- OUTSIDE RECORDS SUMMARY | 2024-06-18 18:53 | XMS_ITS | Encounter Summary ---
Author Organization [facility] Address [address] [place] [address] Care Team Providers Care Precision Lens Generator Name Role Phone Pepper Morgan MD Primary Care Provider [phone] Hank Garibay MD Unavailable [phone] Jacky Murry MD Unavailable [phone] Puma Mckenzie MD Unavailable [phone] Neha Jackson PT Unavailable Unavailable Stalin Arauz MD Unavailable [phone] Tiffany Rojas Unavailable [phone] Reason for Visit * Reason Comments Hospital Follow Up Encounter Details Date Type Department Care Team (Late st Contact Info) Description 01/09/2023 10:15 AM CDT Office Visit [facility] at [address] [place] [address] Maude Harris, NOEL [address] [place] [address] [address] [place] [address] 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 (Primary Dx); Chronic atrial fibrillation (HCC); Chronic heart failure with preserved ejection fraction (CMS/HCC) (HCC); Peripheral arterial disease (HCC); Shortness of breath Social History Tobacco [...] any clubs o r organizations such as zoroastrian groups, unions, fraternal or athletic groups, or [...] in a residential (including now)? No 12/29/2022 Comments No Sex and Gender Information Value Date Recorded Sex Assigned at Not on file Legal Sex Female 4:33 AM FUEL QUALITY TECH Gender Identity Not on file Sexual Orientation Not on file Occupation Industry Job Start Date Job End Date retired Not on file Not on file Not on file documented as of this encounter Last Filed Vital Signs Vital Sign Reading Time Taken Comments Blood Pressure 103/76 01/09/2023 10:27 AM CDT Pulse 78 01/09/2023 10:27 AM CDT Temperature - - Respiratory Rate 18 01/09/2023 10:27 AM CDT Oxygen Saturation - - Inhaled Oxygen Concentration - - Weight 84.8 kg (187 lb) 01/09/2023 10:27 AM CDT Height 152.4 cm (5') 01/09/2023 10:27 AM CDT Body Mass Index 36.52 01/09/2023 10:27 AM CDT documented in this encounter Progress Notes * Maude Harris NP - 01/09/2023 10:15 AM CDT Cardiology note Reason for Office Visit: Chief Complaint Patient presents with Hospital Follow Up History of Present Illness: Tess Benedict is [...] of artifact on imaging due to bilateral knee replacements. [...] Her swelling is improving but still present. Review of Systems Constitutional: Positive for malaise/fatigue and weight loss. Negative for weight gain. Cardiovascular: Negative for chest pain, claudication, dyspnea on exertion, leg swelling, palpitations and syncope. Respiratory: Negative for cough, shortness of breath, sputum production and wheezing. Endocrine: Negative for [...] TOTAL HIP ARTHROPLASTY Left 11/01/2021 Dr. Mckenzie, [facility]. Family History Problem Relation Age of Onset Cancer Other Family history of Cancer, unknown; Arthritis Other Family history of Arthritis; Abdominal Aortic Aneurysm Father COPD Father Social History Tobacco Use Smoking status: Former Packs/day: 2.00 Years: 30.00 Pack years: 60.00 Types: Cigarettes Quit date: 1981 Years since quittin.5 Smokeless tobacco: Never Substance and Sexual Activity [...] Current Outpatient Medications Medication Sig Dispense Refill cetirizine (ZyrTEC) 10 mg tablet Take 1 tablet (10 mg total) by mouth nightly 90 tablet 3 cholecalciferol (VITAMIN D-3) 2000 unit tablet Take 1 tablet (2,000 Units total) by mouth daily clonazePAM (KlonoPIN) 0.5 mg tablet Take 1 tablet (0.5 mg total) by mouth nightly 30 tablet 5 clopidogreL (PLAVIX) 75 mg tablet Take 1 tablet (75 mg total) by mouth daily 90 tablet 3 felodipine (PLENDIL) 5 mg 24 hr tablet Take 1 tablet (5 mg total) by mouth daily 90 tablet 2 furosemide (LASIX) 40 mg tablet Take 1 tablet (40 mg total) by mouth 2 (two) times a day pantoprazole DR (PROTONIX) 40 mg EC tablet Take 1 tablet (40 mg total) by mouth daily 30 tablet 11 pramipexole (MIRAPEX) 0.25 mg tablet Take 1 [...] (two) times a day 180 tablet 3 albuterol HFA (Proventil HFA) 90 mcg/actuation inhaler Inhale 2 puffs every 6 (six) hours as neededfor wheezing or shortness of breath (Patient not taking: Reported on 01/09/2023) 6.7 g 0 ondansetron (ZOFRAN) 4 mg tablet Take 1 tablet (4 mg total) by mouth every 8 (eight) hours as needed for nausea or vomiting (Patient not taking: Reported on 01/09/2023) 20 tablet 0 polyethylene glycol (MIRALAX) 17 gram packet Take 1 packet (17 g total) by mouth daily as needed for constipation (Patient not taking: Reported on 01/09/2023) potassium chloride ER (KLOR-CON) 20 mEq CR tablet Take 2 tablets (40 mEq total) by mouth 2 (two) times a day (Patient not taking: Reported on 01/09/2023) 120 tablet 11 No current facility-administered medications for this visit. Vitals BP 103/76 (BP Location: Right arm, Patient Position: Sitting) Pulse 78 Resp 18 Ht 152.4 cm (5') Wt 84.8 kg (187 lb) LMP (LMP Unknown) BMI 36.52 kg/m?? Vitals: 01/09/23 1027 BP: 103/76 Pulse: 78 Resp: 18 Wt Readings from Last 3 Encounters: 01/09/23 84.8 kg (187 lb) 01/06/23 87.5 kg (193 lb) 12/28/22 86.9 kg (191 lb 9.3 oz) Body mass index is 36.52 kg/m??. Physical Exam Constitutional: General: She is not in acute distress. Appearance: Normal appearance. She is well-developed. She is not diaphoretic. HENT: Mouth/Throat: Pharynx: No oropharyngeal exudate. Eyes: Conjunctiva/sclera: Conjunctivae normal. Neck: Vascular: No carotid bruit or JVD. [...] normal. Breath sounds: Normal breath sounds. No decreased breath sounds, wheezing, rhonchi or rales. Abdominal: General: Bowel sounds are normal. Palpations: Abdomen is soft. Skin: General: Skin is warm and dry. Neurological: Mental Status: She is alert and oriented to person, place, and time. Psychiatric: Mood and Affect: Mood normal. Behavior: Behavior normal. Pedal pulses On the right, both pedal pulses are present by Doppler, PT is present On the left, Dorsalis pedis is strong by Doppler. Posterior tibial is strong by Doppler Trace bilateral lower extremity edema. Worse on the left No open wounds Feet are warm Labs: Lab Results Component Value Date INR 1.1 03/24/2022 INR 1.5 (H) 02/14/2022 INR 1.1 11/01/2021 Lab Results Component Value Date PT 12.0 03/24/2022 PT 16.6 (H) 02/14/2022 PT 12.6 11/01/2021 Lab Results Component Value Date TSH 2.56 12/09/2022 FREET4 1.6 12/09/2022 Lab Results Component Value Date BILIRUBINU Negative 02/07/2017 AST 11 12/30/2022 ALT 6 (L) 12/30/2022 ALKPHOS 86 12/30/2022 ALBUMIN 2.8 (L) 12/30/2022 Lab Results Component Value Date SODIUM 140 01/06/2023 POTASSIUM 5.3 (H) 01/06/2023 CHLORIDE 101 01/06/2023 CO2 30 01/06/2023 ANIONGAP 9 01/06/2023 CK 114 11/09/2021 GLUCOSEUR Negative 10/25/2021 No results found for: BNP Lab Results Component Value Date SODIUM 140 01/06/2023 SODIUM 134 (L) 12/30/2022 SODIUM 133 (L) 12/29/2022 POTASSIUM 5.3 (H) 01/06/2023 POTASSIUM 3.6 12/30/2022 POTASSIUM 3.6 12/29/2022 CHLORIDE 101 01/06/2023 CHLORIDE 96 (L) 12/30/2022 CHLORIDE 95 (L) 12/29/2022 CO2 30 01/06/2023 CO2 26 12/30/2022 CO2 26 12/29/2022 BUNSER 35 (H) 01/06/2023 BUNSER 29 (H) 12/30/2022 BUNSER 39 (H) 12/29/2022 CREATININE 1.29 (H) 01/06/2023 CREATININE 1.45 (H) 12/30/2022 CREATININE 1.85 (H) 12/29/2022 GFRNAA 41 01/06/2023 GFRNAA 35 12/30/2022 GFRNAA 26 12/29/2022 GLUCOSE 109 01/06/2023 CALCIUM 9.0 01/06/2023 CALCIUM 8.8 12/30/2022 CALCIUM 8.8 12/29/2022 ALBUMIN 2.8 (L) 12/30/2022 ALBUMIN 2.8 (L) 12/29/2022 ALBUMIN 3.5 12/28/2022 PHOS 3.4 12/29/2022 PHOS 3.2 02/14/2017 PHOS 3.9 04/29/2014 Lab Results Component Value Date SODIUM 140 01/06/2023 POTASSIUM 5.3 (H) 01/06/2023 CHLORIDE 101 01/06/2023 CO2 30 01/06/2023 ANIONGAP 9 01/06/2023 BUNSER 35 (H) 01/06/2023 CREATININE 1.29 (H) 01/06/2023 GLUCOSE 109 01/06/2023 CALCIUM 9.0 01/06/2023 BILITOT 0.2 12/30/2022 PROT 5.8 (L) 12/30/2022 ALBUMIN 2.8 (L) 12/30/2022 ALKPHOS 86 12/30/2022 ALT 6 (L) 12/30/2022 AST 11 12/30/2022 Lab Results Component Value Date WBC 6.4 12/30/2022 HGB 11.5 (L) 12/30/2022 HCT 35.6 12/30/2022 LABPLAT 265 12/30/2022 MPV 9.4 12/30/2022 RBC 4.19 12/30/2022 MCV 85.0 12/30/2022 MCH 27.4 12/30/2022 MCHC 32.3 12/30/2022 RDWCV 14.1 12/30/2022 RDWSD 43.4 12/30/2022 NRBCABS 0.00 12/30/2022 Lab Results Component Value Date CHOL 185 05/23/2022 TRIG 119 05/23/2022 HDL 54 05/23/2022 NONHDLCHOL 131 (H) 05/23/2022 CHOLHDL 3.4 05/23/2022 Testing: Echocardiogram 04/2021 Normal left ventricular systolic [...] >50%). Ankle-brachial index in June 2022 1. Dlqm-oa-axuigmum arterial insufficiency at rest in the right [...] waveform at the ankle. JONATHAN 10/24/2022 1. Kzly-kk-zorwqsbq arterial insufficiency at rest in the right [...] fraction. Elevated BNP however with hyponatremia Plan Continue same medication regimen. Continue tight control of blood pressure and cholesterol. Continue diet, exercise, and weight reduction Continue lasix 20 mg BID and metolazone every other day. Would ideally like to add Jardiance but with recent DANNY, will redo BMP next week, hopefully add Jardiance next week She is going to call back with weight and progress report later in the week, may need to increase metolazone to daily for a week or two. Baseline weight 181 lbs, now 184 lbs at home. Diagnoses and all orders for this visit: 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 (Primary) Chronic atrial fibrillation (HCC) Chronic heart failure with preserved ejection fraction (CMS/HCC) (HCC) Peripheral arterial disease (HCC) Shortness of breath No follow-ups on file. 01/09/2023 10:49 AM Maude Harris NP Cc:Pepper Morgan MD documented in this encounter Miscellaneous Notes * Addendum Note - Malena Nguyen - 01/09/2023 10:15 AM CDTAddended by: MALENA NGUYEN on: 01/09/2023 11:00 AM Modules accepted: Orders documented in this [...] Results * (ABNORMAL) Pro B-type natriuretic peptide (01/16/2023 8:54 AM CDT) NT-proBNP 2,479(H) <=450 pg/mL [facility] ([place]) Comment: Interpretive [...] Interpretive Data Last Revised Date: 2018. Blood 01/16/2023 8:54 AM CDT 01/16/2023 9:18 AM CDT us Maude Harris NP LAB BLOOD ORDERABLES Fi nal Result [facility] ([place]) 1 [facility] Department [place] [address] * (ABNORMAL) Basic metabolic panel (01/16/2023 8:54 AM CDT) Sodium 132(L) 135 - 145 mmol/L [facility] ([place]) Potassium, pl 3.4 3.3 - 4.9 mmol/L [facility] Chloride 90(L) 97 - 110 mmol/L [facility] ([place]) CO2 30 22 - 32 mmol/L [facility] ([place]) Anion gap 12 2 - 15 mmol/L [facility] ([place] BUN 71(H) 6 - 25 mg/dL [facility] ([place]) Creatinine 1.45(H) 0.60 - 1.10 mg/dL [facility] ([place]) Glucose 96 70 - 199 mg/dL [facility] ([place]) Comment: Interpretive Data Fasting glucose [...] 2022. Calcium 9.8 8.5 - 10.3 mg/dL [facility] ([place]) Blood 01/16/2023 8:54 AM CDT 01/16/2023 9:19 AM CDT Maude Harris NP LAB BLOOD ORDERABLES nal Result [facility] ([place]) 1 [facility] Department [place] [address] documented in this encounter Visit Diagnoses Diagnosis 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- Primary Essential hypertension, benign Chronic atrial fibrillation (HCC) Atrial fibrillation Chronic heart failure with preserved ejection fraction (CMS/HCC) (HCC) Peripheral arterial disease (HCC) Unspecified peripheral vascular disease Shortness of breath documented in this encounter Historical Medications * This list may reflect changes made after this encounter. furosemide (LASIX) 40 mg tablet Take 1 tablet (40 mg total) by mouth 2 (two) times a day 02/07/2023 added in this encounter Care Teams Precision Lens Generator Relationship Specialty Start Date End Date Pepper Morgan MD PCP - General 09/16/16 Hank Garibay MD [address] [facility] [address] WARNER [place] [facility] [address] [place] [address] Surgeon Orthopedic Surgery 03/27/17 Jacky Murry MD [address] [facility] [address] WARNER [place] [facility] [address] [place] [address] Ophthalmology 03/27/17 Puma Mckenzie MD [address] [facility] [address] WARNER [place] [facility] [address] [place] [address] Surgeon Orthopedic Surgery 07/11/19 Neha Jackson, KEVIN Physical Therapist Physical Therapy 12/01/21 Stalin Arauz MD [address] [facility] [address] [place] [address] Consulting Physician Cardiology 12/08/22 Tiffany Rojas PA [address] [facility] [address] [place] [address] Gastroenterology 12/30/22 documented as of this encounter
--- OUTSIDE RECORDS SUMMARY | 2024-06-18 18:53 | XMS_ITS | Encounter Summary ---
Author Organization [facility] Address [address] [place] [address] Care Team Providers Care Steamer Operator Name Role Phone Pepper Morgan MD Primary Care Provider Hank Garibay MD Unavailable [phone] Jacky Murry MD Unavailable [phone] Puma Mckenzie MD Unavailable [phone] Neha Jackson PT Unavailable Unavailable Stalin Arauz MD Unavailable [phone] Tiffany Rojas PA Unavailable [phone] Encounter Details Date Type Department Care Team (Late st Contact [facility]) Description 01/27/2023 Orders Only [facility] Bundle Clerk at [address] [place] [address] Maude Harris, NOEL [address] [place] [address] [address] [place] [address] Social History Tobacco Use Types Packs/Day [...] in a group home (including now)? 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 Gender Identity Not on file Sexual Orientation [...] times a day 90 tablet 3 01/27/2023 06/17/2023 documented in this encounter Plan of Treatment [...] by mouth 2 (two) times a day Reorder 01/25/2023 01/27/2023 documented as of this encounter Care Teams Steamer Operator Relationship Specialty Start Date End Date Pepper Morgan MD PCP - General 09/16/16 Hank Garibay MD [address] [place] [address] DR [address] [address] Surgeon Orthopedic Surgery 03/27/17 Jacky Murry MD [address] [facility] [address] WARNER [place] [facility] [address] [place] [address] Ophthalmology 03/27/17 Puma Mckenzie MD [address] [facility] [address] WARN[address] [place] [facility] [address] [place] [address] Surgeon Orthopedic Surgery 07/11/19 Neha Jackson, PT Physical Therapist Physical Therapy 12/01/21 Stalin Arauz MD [address] [facility] [address] [place] [address] Consulting Physician Cardiology 12/08/22 Tiffany Rojas PA [address] [facility] [address] [place] [address] Gastroenterology 12/30/22 documented as of this encounter
--- OUTSIDE RECORDS SUMMARY | 2024-06-18 18:53 | XMS_ITS | Encounter Summary ---
Author Organization [facility] Address [address] [place] [address] Care Team Providers Care Tail Dogger Name Role Phone Pepper Morgan MD Primary Care Provider + [phone] Hank Garibay MD Unavailable [phone] Jacky Murry MD Unavailable [phone] Puma Mckenzie MD Unavailable [phone] Neha Jackson PT Unavailable Unavailable Stalin Arauz MD Unavailable [phone] Tiffany Rojas Unavailable [phone] Encounter Details Date Type Department Care Team (Late st Contact Info) Description 01/06/2023 Telephone [place] [employer] Operator at [address] [place] [address] Hai Dalton MA Social History [...] often do you attend chur ch or yarsani services? 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 BNP and BMP results. Patient to call back with any questions * Telephone Encounter - Hai Dalton MA - 01/06/2023 2:06 PM CDT ----- Message from Stalin Arauz MD sent at 01/06/2023 1:18 PM CDT ----- BNP is higher than before. Continue diuresis. To be evaluated next week ----- Message ----- From: Interface, Lab Results In Sent: 01/06/2023 12:32 PM CDT To: Stalin Arauz MD documented in this encounter Plan of [...] on filedocumented in this encounter Care Teams Tail Dogger Relationship Specialty Start Date End Date Pepper Morgan MD PCP - General 09/16/16 Hank Garibay MD [address] [place] [facility] [address] [place] [address] Surgeon Orthopedic Surgery 03/27/17 Jacky Murry MD [address] [facility] [address] [place] [facility] [address] [place] [address] Ophthalmology 03/27/17 Puma Mckenzie MD [address] [facility] [address] [place] [facility] [address] [place] [address] Surgeon Orthopedic Surgery 07/11/19 Neha Jackson, PT Physical Therapist Physical Therapy 12/01/21 Stalin Arauz MD [address] [facility] [address] [address] [address] [place] [address] Consulting Physician Cardiology 12/08/22 Tiffany Rojas PA [address] [facility] [address] [address] [address] [place] [address] Gastroenterology 12/30/22 documented as of this encounter
--- OUTSIDE RECORDS SUMMARY | 2024-06-18 18:53 | XMS_ITS | Encounter Summary ---
Author Organization [facility] Healthcare Address [address] [place] [address] Care Team Providers Care Obstetrics Scrub Nurse Name Role Phone Pepper Morgan MD Primary Care Provider + [phone] Hank Garibay MD Unavailable [phone] Jacky Murry MD Unavailable [phone] Puma Mckenzie MD Unavailable [phone] Neha Jackson PT Unavailable Unavailable Stalin Arauz MD Unavailable [phone] Tiffany Rojas Unavailable [phone] Reason for Visit * Reason Comments Blood in Urine Encounter Details Date Type Department Care Team (Late st Contact Info) Description 02/16/2023 5:28 AM CDT - 02/16/2023 1:37 PM CDT Emergency [facility] Emergency Department [address] [place] [address] Hematuria, gross (Primary Dx); Acute cystitis with hematuria Discharge Disposition: Discharge to home or self [...] chur ch or jehovah's witness services? Never 12/29/2022 Do you belong to [...] in a chcf (including now)? 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 Gender Identity Not on file Sexual Orientation Not on file Occupation Industry Job Start Date Job End Date retired Not on file Not on file Not on file documented as of this encounter Last Filed Vital Signs Vital Sign Reading Time Taken Comments Blood Pressure 114/67 02/16/2023 1:10 PM CDT Pulse 75 02/16/2023 1:10 PM CDT Temperature 36.3 ??C (97.4 ??F) 02/16/2023 5:26 AM CD T Respiratory Rate 18 02/16/2023 1:10 PM CDT Oxygen Saturation 100% 02/16/2023 1:10 PM CDT Inhaled Oxygen Concentration - - Weight - - Height - - Body Mass Index - - documented in this encounter Discharge Instructions * Discharge Instructions* Camille Daly PA - 02/16/2023 12:01 PM CDT Please follow-up with a urologist that we have provided you for discharge. If her symptoms get worse or do not improve please return to the ER immediately for re-evaluation. * Attachments The following attachments cannot be sent through Care Everywhere. * Bladder Infection, Female (Adult) (Romanian) * Acute Hematuria (Discharge Care) (Romanian) documented in this encounter Medications at Time of Discharge cetirizine (ZyrTEC) 10 mg tabletIndications :Angioedema, subsequent encounter Take 1 tablet (10 mg total) by mouth nightly 90 tablet 3 12/08/2022 cholecalciferol (VITAMIN D-3) 2000 unit tablet Take 1 tablet (2,000 Units total) by mouth daily cephalexin (KEFLEX) 500 mg capsule Take 0.5 capsules (250 mg total) by mouth 3 (three) times a day for 10 days 30 capsule 02/16/2023 3 albuterol HFA (Proventil HFA) 90 mcg/actuation inhalerIndication s:Cough Inhale 2 puffs every 6 (six) hours as needed for wheezing or shortness of breath 6.7 g 05/10/2022 3 aspirin 81 mg enteric coated tablet Take 1 tablet (81 mg total) by mouth daily [address]/ER (UCERIS) 9 mg tablet, delayed & ext.release Take 1 tablet (9 mg total) by mouth daily 01/22/2023 3 clonazePAM (KlonoPIN) 0.5 mg tablet Take 1 tablet (0.5 mg total) by mouth nightly 30 tablet 5 12/08/2022 3 felodipine (PLENDIL) 5 mg 24 hr tabletIndications :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 Take 1 tablet (5 mg total) by mouth daily 90 tablet 2 12/08/2022 4 furosemide (LASIX) 20 mg tablet Take 1 tablet (20 mg total) by mouth 2 (two) times a day 3 gabapentin (NEURONTIN) 300 mg capsule Take 1 capsule (300 mg total) by mouth nightly 30 capsule 02/15/2023 3 metOLazone (ZAROXOLYN) 2.5 mg tabletIndications :Peripheral [...] (two) times a day 180 tablet 2 12/08/2022 3 propranoloL (INDERAL) 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 female who presents to [facility] ED-ED07 for admission. The prior to admission home medication list was reviewed by pharmacy. Current Facility-Administered Medications: cefTRIAXone (ROCEPHIN) 1,000 mg/10 mL in sterile water (premix) 1,000 mg, 1,000 mg, intravenous, Q24H GLORIA, Camille Daly PA, 1,000 mg at 02/16/23 0739 sodium chloride 0.9% bolus 1,000 mL, 1,000 mL, intravenous, Once, Camille Daly PA Current Outpatient Medications: aspirin 81 mg enteric coated tablet, Take 1 tablet (81 mg total) by mouth daily, Disp: , Rfl: cetirizine (ZyrTEC) 10 mg tablet, Take 1 tablet (10 mg total) by mouth nightly, Disp: 90 tablet, Rfl: 3 cholecalciferol (VITAMIN D-3) 2000 unit tablet, Take 1 tablet (2,000 Units total) by mouth daily, Disp: , Rfl: clonazePAM (KlonoPIN) 0.5 mg tablet, Take 1 tablet (0.5 mg total) by mouth nightly, Disp: 30 tablet, Rfl: 5 felodipine (PLENDIL) 5 mg 24 hr tablet, Take 1 tablet (5 mg total) by mouth daily, Disp: 90 tablet,Rfl: 2 furosemide (LASIX) 20 mg tablet, Take 1 tablet (20 mg total) by mouth 2 (two) times a day, Disp: , Rfl: gabapentin (NEURONTIN) 300 mg capsule, Take 1 capsule (300 mg total) by mouth nightly, Disp: 30 capsule, Rfl: 0 metOLazone (ZAROXOLYN) 2.5 mg tablet, Take 1 tablet (2.5 mg total) by mouth every other day, Disp: , Rfl: pantoprazole DR (PROTONIX) 40 mg EC tablet, Take 1 tablet (40 mg total) by mouth daily, Disp: 30 tablet, Rfl: 11 polyethylene glycol (MIRALAX) 17 gram packet, Take 1 packet (17 g total) by mouth daily as needed for constipation, Disp: , Rfl: potassium chloride ER 20 mEq CR tablet, Take 1 tablet (20 mEq total) by mouth daily, Disp: , Rfl: pramipexole (MIRAPEX) 0.25 mg tablet, Take 1 tablet (0.25 mg total) by mouth 2 (two) times a day, Disp: 180 tablet, Rfl: 2 propranoloL (INDERAL) 20 mg tablet, Take 1 tablet (20 mg total) by mouth 2 (two) times a day as needed (Tremor), Disp: 180 tablet, Rfl: 2 rivaroxaban (XARELTO) 20 mg tablet, Take 1 tablet (20 mg total) by mouth daily, Disp: 30 tablet, Rfl: 11 spironolactone (ALDACTONE) 25 mg tablet, Take 1 tablet (25 mg total) by mouth 2 (two) times a day, Disp: 90 tablet, Rfl: 3 albuterol HFA (Proventil HFA) 90 mcg/actuation inhaler, Inhale 2 puffs every 6 (six) hours as needed for wheezing or shortness of breath, Disp: 6.7 g, Rfl: [address]/ER (UCERIS) 9 mg tablet, delayed & ext.release, Take 1 tablet (9 mg total) by mouth daily (Patient not taking: Reported on 02/16/2023), Disp: , Rfl: The patient???s home medication list has been reconciled and updated as follows: - Orders from medication that were removed because the patient is no longer taking: none - Orders that the patient is taking at home were added to the home medication list: Aspirin, metolazone, miralax, KCL - Orders on the medication list that the patient is taking differently (doses/frequency/formulation): Furosemide to 20 mg bid Not taking: budesonide - Additional comments/recommendations: Patient able to recognize medication names and provide frequencies. Dispense history available for doses Reports being unable to afford budesonide. She was unsure of indication Was taken off clopidogrel and put on aspirin d/t bleeding last week Sources of information for this medication reconciliation include: patient and prescription fill history Efren Ramos RPh 02/16/2023 10:40 AM documented in this encounter Consult Notes * Rahat Harris MD - 02/16/2023 11:05 AM CDT [facility] Reason for Consult: shortness of breath Requesting Provider: ER- Subjective Patient is a 87 y.o. female with chief complaint of hematuria. HPI: The patient is an 87-year-old female who presented to the ER with hematuria. She has a history of atrial fibrillation is on Xarelto. She also has a history of hypertension and peripheral artery disease. Today she also complains of some mild shortness of breath. ECG shows atrial fibrillation with a controlled ventricular response without acute ST-T changes. Chest x-ray showed no acute cardiopulmonary disease. Remarkable laboratories include a creatinine of 1.21 which is improved from a month ago. Electrolytes were normal, NT proBNP was 2307 which is improved from a month ago. Troponin 19, 18, 17, hemoglobin 14.2, WBC 9.9, INR 1.6, urinalysis showed red urine 3+ protein 2+ blood 2+ leukocyte e sterase greater than 50 WBCs and RBCs per high-power field. Past Medical History: Diagnosis Date Allergic rhinitis [...] HIP ARTHROPLASTY Left 11/01/2021 Dr. Mckenzie, [facility]. (Not in a hospital admission) Current Facility-Administered Medications: cefTRIAXone (ROCEPHIN) 1,000 mg/10 mL in sterile water (premix) 1,000 mg, 1,000 mg, intravenous, Q24H GLORIA, Camille Daly PA, 1,000 mg at 02/16/23 0739 furosemide (LASIX) tablet 20 mg, 20 mg, oral, BID, Camille Daly PA sodium chloride 0.9% bolus 1,000 mL, 1,000 mL, intravenous, Once, Caimlle Daly PA spironolactone (ALDACTONE) tablet 25 mg, 25 mg, oral, BID, Camille Daly PA Current Outpatient Medications: aspirin 81 mg enteric coated tablet, Take 1 tablet (81 mg total) by mouth daily, Disp: , Rfl: cetirizine (ZyrTEC) 10 mg tablet, Take 1 tablet (10 mg total) by mouth nightly, Disp: 90 tablet, Rfl: 3 cholecalciferol (VITAMIN D-3) 2000 unit tablet, Take 1 tablet (2,000 Units total) by mouth daily, Disp: , Rfl: clonazePAM (KlonoPIN) 0.5 mg tablet, Take 1 tablet (0.5 mg total) by mouth nightly, Disp: 30 tablet, Rfl: 5 felodipine (PLENDIL) 5 mg 24 hr tablet, Take 1 tablet (5 mg total) by mouth daily, Disp: 90 tablet,Rfl: 2 furosemide (LASIX) 20 mg tablet, Take 1 tablet (20 mg total) by mouth 2 (two) times a day, Disp: , Rfl: gabapentin (NEURONTIN) 300 mg capsule, Take 1 capsule (300 mg total) by mouth nightly, Disp: 30 capsule, Rfl: 0 metOLazone (ZAROXOLYN) 2.5 mg tablet, Take 1 tablet (2.5 mg total) by mouth every other day, Disp: , Rfl: pantoprazole DR (PROTONIX) 40 mg EC tablet, Take 1 tablet (40 mg total) by mouth daily, Disp: 30 tablet, Rfl: 11 polyethylene glycol (MIRALAX) 17 gram packet, Take 1 packet (17 g total) by mouth daily as needed for constipation, Disp: , Rfl: potassium chloride ER 20 mEq CR tablet, Take 1 tablet (20 mEq total) by mouth daily, Disp: , Rfl: pramipexole (MIRAPEX) 0.25 mg tablet, Take 1 tablet (0.25 mg total) by mouth 2 (two) times a day, Disp: 180 tablet, Rfl: 2 propranoloL (INDERAL) 20 mg tablet, Take 1 tablet (20 mg total) by mouth 2 (two) times a day as needed (Tremor), Disp: 180 tablet, Rfl: 2 rivaroxaban (XARELTO) 20 mg tablet, Take 1 tablet (20 mg total) by mouth daily, Disp: 30 tablet, Rfl: 11 spironolactone (ALDACTONE) 25 mg tablet, Take 1 tablet (25 mg total) by mouth 2 (two) times a day, Disp: 90 tablet, Rfl: 3 albuterol HFA (Proventil HFA) 90 mcg/actuation inhaler, Inhale 2 puffs every 6 (six) hours as needed for wheezing or shortness of breath, Disp: 6.7 g, Rfl: [address]/ER (UCERIS) 9 mg tablet, delayed & ext.release, Take 1 tablet (9 mg total) by mouth daily (Patient not taking: Reported on 02/16/2023), Disp: , Rfl: Allergies Allergen Reactions Celecoxib Anaphylaxis Scopolamine Mental [...] Types: Cigarettes Quit date: 1981 Years since quittin.6 Smokeless tobacco: Never Substance and Sexual Activity [...] negative Objective Vitals: 24hr Min/Max: Temp Min: 36.3 ??C (97.4 ??F) Max: 36.3 ??C (97.4 ??F) Pulse Min: 71 Max: 84 BP Min: 100/66 Max: 136/98 Resp Min: 16 Max: 20 SpO2 Min: 97 % Max: 100 % Most Recent: Vitals: 02/16/23 0940 BP: 120/77 Pulse: 74 Resp: 19 Temp: SpO2: 100% No intake/output data recorded. No intake/output data recorded. Physical Exam: General appearance: appears stated age and cooperative Head: Normocephalic, without obvious abnormality, atraumatic Eyes: conjunctivae/corneas clear. PERRL Neck: no adenopathy, no carotid bruit, no JVD, supple, symmetrical, trachea midline, and thyroid not enlarged, symmetric, no tenderness/mass/nodules Lungs: wheezes all lobes Heart: regular rate and rhythm, S1, S2 normal, no murmur, click, rub or gallop Abdomen: soft, non-tender; bowel sounds normal; no masses, no organomegaly Extremities: No edema Neurologic: Alert and oriented x4, non-focal Lab/Radiology/Diagnostic Review: Laboratory review: Lab results in the last 24 hours: Recent Results (from the past 24 hour(s)) Urinalysis reflex to microscopic and culture Urine Collection Time: 02/16/23 6:00 AM Specimen: Urine Result Value Ref Range Color, ur Red (A) Yellow Clarity, ur Cloudy (A) Clear Specific gravity, ur 1.012 1.003 - 1.030 pH, urine 6.0 Protein, ur ql 3+ (A) Negative Glucose, ur ql Negative Negative Ketones, ur Trace Negative Bilirubin, ur Negative Negative Blood, ur 2+ (A) Negative Urobilinogen, ur <2.0 <2.0 mg/dL Nitrite, ur Negative Negative Leukocyte esterase, ur 2+ (A) Negative UA reflex comment Reflex to microscopic UA will be performed. CBC with auto differential Collection Time: 02/16/23 6:00 AM Result Value Ref Range WBC 9.9 3.8 - 9.9 K/cumm Hgb 14.2 11.9 - 15.5 g/dL Hct 45.0 35.6 - 45.5 % Plt 340 150 - 400 K/cumm MPV 9.0 (L) 9.1 - 12.3 fL RBC 5.34 (H) 3.90 - 5.20 M/cumm MCV 84.3 81.3 - 96.4 fL MCH 26.6 (L) 27.1 - 33.3 pg MCHC 31.6 (L) 32.3 - 35.7 g/dL RDW CV 14.5 11.1 - 14.9 % RDW SD 44.5 35.7 - 48.1 fL NRBC abs 0.00 0.00 - 0.01 K/cumm Comprehensive metabolic panel Collection Time: 02/16/23 6:00 AM Result Value Ref Range Sodium 138 135 - 145 mmol/L Potassium, pl 3.9 3.3 - 4.9 mmol/L Chloride 99 97 - 110 mmol/L CO2 29 22 - 32 mmol/L Anion gap 10 2 - 15 mmol/L BUN 49 (H) 6 - 25 mg/dL Creatinine 1.21 (H) 0.60 - 1.10 mg/dL Glucose 95 70 - 199 mg/dL Calcium 9.8 8.5 - 10.3 mg/dL Bilirubin, total 0.3 0.1 - 1.2 mg/dL Protein, pl 7.3 6.5 - 8.5 g/dL Albumin 3.7 3.5 - 5.0 g/dL Alk phos 115 40 - 130 Units/L ALT 9 7 - 45 Units/L AST 17 10 - 45 Units/L Protime-INR Collection Time: 02/16/23 6:00 AM Result Value Ref Range PT 18.4 (H) 10.3 - 13.7 sec INR 1.61 (H) 0.90 - 1.20 Differential, auto Collection Time: 02/16/23 6:00 AM Result Value Ref Range Neutrophil abs 7.6 (H) 1.7 - 6.5 K/cumm Imm gran abs 0.1 0.0 - 0.1 K/cumm Lymphocyte abs 1.1 0.8 - 3.3 K/cumm Monocyte abs 0.7 0.2 - 0.8 K/cumm Eosinophil abs 0.4 0.0 - 0.5 K/cumm Basophil abs 0.1 0.0 - 0.1 K/cumm Neutrophil pct 76.8 % Imm gran pct 0.8 % Lymphocyte pct 10.6 % Monocyte pct 7.4 % Eosinophil pct 3.8 % Basophil pct 0.6 % Urinalysis, microscopic only Collection Time: 02/16/23 6:00 AM Result Value Ref Range WBC, ur >50 (A) 0 - 5 /HPF RBC, ur >50 (A) 0 - 2 /HPF Culture Reflex Comment Reflex to urine culture will be performed. eGFR Collection Time: 02/16/23 6:00 AM Result Value Ref Range eGFR 44 mL/min/1.73 m2 Pro B-type natriuretic peptide Collection Time: 02/16/23 6:00 AM Result Value Ref Range NT-proBNP 2,307 (H) <=450 pg/mL Troponin T high-sensitivity series (baseline, 2hr, 4hr, 6hr) Collection Time: 02/16/23 6:00 AM Result Value Ref Range Trop T hs 19 (H) <=14 ng/L Respiratory pathogen panel Nasopharyngeal Collection Time: 02/16/23 7:42 AM Specimen: Nasopharyngeal Result Value Ref Range [...] M. pneumoniae DNA Not Detected Not Detected Troponin T high-sensitivity 2-hour Collection Time: 02/16/23 7:43 AM Result Value Ref Range Trop T hs 18 (H) <=14 ng/L Trop T hs delta 0 ng/L Trop T hs interp Insignificant Troponin T high-sensitivity 4-hour Collection Time: 02/16/23 9:48 AM Result Value Ref Range Trop T hs 17 (H) <=14 ng/L Trop T hs delta -1 ng/L Trop T hs interp Insignificant Hemoglobin and hematocrit Collection Time: 02/16/23 10:21 AM Result Value Ref Range Hgb 13.2 11.9 - 15.5 g/dL Hct 43.0 35.6 - 45.5 % Lipids: No results found for: CHOL , CHLPL , HDL , LDLCALC , TRIG , CHOLHDL and Cardiac Enzymes: No results found for: CKTOTAL , CKMB , CKMBINDEX , TROPONINT Assessment /Plan Active Problems: No Active Problems: There are no active problems currently on the Problem List. Please update the Problem List and refresh. Impression Hematuria Hold Xarelto 2. Prob. UTI 3. Atrial Fib with rate control--- hold xarelto due to #1 4. PAD 5. Dyspnea---- No signs of CHF including clear chest xray. Recommend inhaled beta agonists. 6. Borderline Troponin without delta. Not ACS. OK for discharge home from cardiology documented in this encounter ED Notes * Camille Daly PA - 02/16/2023 7:12 AM CDT HPI Mrs. Tess Benedict is a 87-year-old female with a medical history that includes but is not limited to-chronic heart failure with a preserved ejection fraction, shortness of breath, atrial fib onXarelto, hypertension, GERD- patient presents to the ER today with reports bright red blood with urination and clotting that started approximately 3:00 a.m.. Patient also reports that she was more short of breath yesterday and reached out to her pool nurse Dr. Arauz but missed his phone call. Patient says she has an overall feeling not being well. She denies any fever, chills, nausea, vomiting, chest pain, abdominal pain, diarrhea or constipation or any other associated symptoms at this time. 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 Mckenzie, [facility]. Family History Problem Relation Age of Onset Cancer Other Family history of Cancer, unknown; Arthritis Other Family history of Arthritis; Abdominal Aortic Aneurysm Father COPD Father Social History Tobacco Use Smoking status: Former Packs/day: 2.00 Years: 30.00 Additional pack years: 0.00 Total pack years: 60.00 Types: Cigarettes Quit date: 1981 Years since quittin.6 Smokeless tobacco: Never Vaping Use Vaping Use: Never used Substance and Sexual Activity Alcohol use: Not Currently Drug use: Never Sexual activity: Defer Social History Social History Narrative Not on file Review of Systems Review of Systems Constitutional: Negative for chills and fever. HENT: Negative for ear pain and sore throat. Eyes: Negative for pain and visual disturbance. Respiratory: Positive for shortness of breath. Negative for cough. Cardiovascular: Negative for chest pain and palpitations. Gastrointestinal: Negative for abdominal pain and vomiting. Genitourinary: Positive for dysuria and hematuria. Musculoskeletal: Negative for arthralgias and back pain. Skin: Negative for color change and rash. Neurological: Negative for seizures and syncope. All other systems reviewed and are negative. Physical Exam ED Triage Vitals [02/16/23 0526] Temp Pulse Resp BP SpO2 36.3 ??C (97.4 ??F) 76 16 136/98 98 % Temp src Heart Rate Source Patient Position BP Location FiO2 (%) -- -- -- -- -- Height Height Method Weight Weight Method -- -- -- -- Physical Exam MDM Medical Decision Making UTI/ureteral stone Amount and/or Complexity of Data Reviewed Independent Historian: Details: Patient Labs: ordered. Radiology: ordered. ECG/medicine tests: ordered. Risk Prescription drug management. ED Course as of 02/16/23 1446 Time: 02/16 0918 Comment: Maude CLAM PICKER with [facility] will come to ED to evaluate patient By: Camille Daly PA Time: 02/16 1153 Comment: Discussed patient Chief complaint, labs, exam and Dr. Horn police patient is stable enough to follow-up as an outpatient hematuria workup. By: Camille Daly PA Final diagnoses: Hematuria, gross Acute cystitis with hematuria Camille Daly PA 02/16/23 1447 Cosigned by Mich Sheppard MD at 02/16/2023 9:32 PM CDT * Natasha Mejias RN - 02/16/2023 5:25 AM CDT Pt reports bright red blood in urine and clots since 299. Reports increased frequency. Pt states she started gabapentin 300mg yesterday. A&Ox4 documented in this encounter Plan of Treatment [...] Procedure Name Priority Date/Time Associated Diagnosis Comments HEMOGLOBIN AND HEMATOCRIT Routine 02/16/2023 10:21 AM CDT XR CHEST 1 VIEW ED 02/16/2023 10:09 AM CDT TROPONIN T HIGH-SENSITIVITY 4-HR Timed 02/16/2023 9:48 AM CDT TROPONIN T HIGH-SENSITIVITY 2-HOUR Timed 02/16/2023 7:43 AM CDT RESPIRATORY PATHOGEN PANEL Routine 02/16/2023 7:42 AM CDT ECG 12-LEAD Routine 02/16/2023 7:33 AM CDT TROPONIN T HIGH-SENSITIVITY SERIES (BASELINE, 2HR, 4HR, 6HR) STAT 02/16/2023 6:00 AM CDT EGFR STAT 02/16/2023 6:00 AM CDT DIFFERENTIAL AUTO STAT 02/16/2023 6:0 0 AM CDT PRO B-TYPE NATRIURETIC PEPTIDE Add-On 02/16/2023 6:00 AM CDT URINALYSIS AND REFLEX TO MICROSCOPIC AND CULTURE STAT 02/16/2023 6:00 AM CDT CBC WITH AUTO DIFFERENTIAL STAT 02/16/2023 6:00 AM CDT URINALYSIS, MICROSCOPIC ONLY STAT 02/16/2023 6:00 AM CDT PROTIME-INR STAT 02/16/2023 6:00 AM CDT URINE CULTURE STAT 02/16/2023 6:00 AM CDT COMPREHENSIVE METABOLIC PANEL STAT 02/16/2023 6:00 AM CDT documented in this encounter Results * Hemoglobin and hematocrit (02/16/2023 10:21 AM CDT) Hgb 13.2 11.9 - 15.5 g/dL [facility] Hct 43.0 35.6 - 45.5 % [facility] Blood 02/16/2023 10:2 1 AM CDT 02/16/2023 10:21 AM CDT us Camille BRUCE LAB BLOOD ORDERABLES Final Resu lt [facility] [id number] Department of [facility] [place] [address] [phone] * XR Chest 1 Vw Portable (02/16/2023 10:09 AM CDT) Anatomical Region Laterality Modality Body, Chest N/A Computed Radiogr aphy 02/16/2023 10:1 1 AM CDT Impressions 02/16/2023 10:11 AM CDT No acute cardiopulmonary findings. Electronically signed by: Jason Darling II, D.O. Narrative 02/16/2023 10:11 AM CDT EXAMINATION: XR CHEST 1 VIEW DATE: 02/16/2023 10:05 AM INDICATION: Shortness of breath. COMPARISON: 12/28/2022. FINDINGS: No pneumothorax, pleural effusion, or pulmonary consolidation is demonstrated. The cardiomediastinal silhouette is within normal limits. No acute osseous abnormality demonstrated. Procedure Note Jason Darling II, DO - 02/16/2023 EXAMINATION: XR CHEST 1 VIEW DATE: 02/16/2023 10:05 AM INDICATION: Shortness of breath. COMPARISON: 12/28/2022. FINDINGS: No pneumothorax, pleural effusion, or pulmonary consolidation is demonstrated. The cardiomediastinal silhouette is within normal limits. No acute osseous abnormality demonstrated. IMPRESSION: No acute cardiopulmonary findings. Electronically signed by: Jason Darling II, D.O. Camille BRUCE IMG XR PROCEDURES Final Result * (ABNORMAL) Troponin T high-sensitivity 4-hour (02/16/2023 9:48 AM CDT) Trop T hs 17(H) <=14 ng/L [facility] Comment: Interpretive Data For further hscTnT resources including the diagnostic algorithm and an aid in interpretation, copy and paste this link: https://nrl.testcatalog.org/show/hsTrop Current Interpretive Data last revised 2020. Trop T hs delta -1 ng/L [facility] Trop T hs interp Insignificant [facility] Blood 02/16/2023 9:48 AM CDT 02/16/2023 9:48 AM CDT Camille BRUCE LAB BLOOD ORDERABLES Final Resu lt [facility] [address] Department [place] [address] * (ABNORMAL) Troponin T high-sensitivity 2-hour (02/16/2023 7:43 AM CDT) [facility] Trop T hs 18(H) <=14 ng/L [facility] Comment: Slight hemolysis may result in decreased troponin measurement. Consider recollection. Interpretive Data For further hscTnT resources including the diagnostic algorithm and an aid in interpretation, copy and paste this link: https://nrl.testcatalog.org/show/hsTrop Current Interpretive Data last revised 2020. Trop T hs delta 0 ng/L [facility] Trop T hs interp Insignificant [facility] Blood 02/16/2023 7:43 AM CDT 02/16/2023 7:43 AM CDT Camille BRUCE LAB BLOOD ORDERABLES Final Resu lt [facility] [address] Department [place] [address] * Respiratory pathogen panel Nasopharyngeal (02/16/2023 7:42 AM CDT) [facility] Influenza A RNA Not Detected Not Detected [facility] Influenza B RNA Not Detected Not Detected [facility] RSV RNA Not Detected Not Detected [facility] COVID-19 RNA Not Detected Not Detected [facility] [facility] Coronavirus 229E RNA Not Detected Not Detected [facility] Coronavirus HKU1 RNA Not Detected Not Detected [facility] Coronavirus NL63 RNA Not Detected Not Detected [facility] Coronavirus OC43 RNA Not Detected Not Detected [facility] Adenovirus DNA Not Detected Not Detected [facility] Metapneumovirus RNA Not Detected Not Detected [facility] Rhinovirus/Enterov irus RNA Not Detected Not Detected [facility] Parainfluenza 1 RNA Not Detected Not Detected [facility] Parainfluenza 2 RNA Not Detected Not Detected [facility] Parainfluenza 3 RNA Not Detected Not Detected [facility] Parainfluenza 4 RNA Not Detected Not Detected [facility] B. pertussis DNA Not Detected Not Detected [facility] B. parapertussis DNA Not Detected Not Detected [facility] C. pneumoniae DNA Not Detected Not Detected [facility] M. pneumoniae DNA Not Detected Not Detected [facility] Comment: Interpretive Data [employer] FilmArray Respiratory Panel (RP2.1) assay is a [...] assay has FDA clearance for testing of CLAM PICKER swabs. ??The performance characteristics of this assay have been determined by [facility]. Current interpretive data was last revised on 2021. Nasopharyngeal 02/16/2023 7: 42 AM CDT 02/16/2023 7:42 AM CDT Narrative [facility] - 02/16/2023 8:32 AM CDT Is the Patient experiencing symptoms consistent with COVID?->Unknown Reason for testing?->Bed placement or semi-private room Surveillance testing for transplant patient?->No Camille BRUCE LAB MICROBIOLOGY - GENERAL [facility] Final Result Performing Organization Address [facility] Co de Phone Number [facility] [address] Department [place] [address] * ECG 12 lead (02/16/2023 7:33 AM CDT) 02/16/2023 7:33 AM CDT Narrative [facility] - 02/16/2023 2:20 PM CDT Vent Rate: 64 bpm RR Interval: 924 msec [place] Interval: 0 msec QRS Duration: 90 msec QT Interval: 403 msec QTC Interval: 413 msec P-R-T [place]: 0 - 75 - 27 degrees ATRIAL FIBRILLATION WITH CONTROLLED VENTRICULAR RESPONSE Electronically Signed By: Collin Rich MD, [facility] Camille BRUCE ECG ORDERABLES Final Result Performing Organization Address [facility] Co de Phone Number [facility] * (ABNORMAL) Troponin T high-sensitivity series (baseline, 2hr, 4hr, 6hr) (02/16/2023 6:00 AM CDT) Trop T hs 19(H) <=14 ng/L [facility]GHAN Comment: Interpretive Data For further hscTnT resources including the diagnostic algorithm and an aid in interpretation, copy and paste this link: https://nrl.testcatalog.org/show/hsTrop Current Interpretive Data last revised 2020. Blood 02/16/2023 6:00 AM CDT 02/16/2023 7:11 AM CDT us Camille BRUCE LAB BLOOD ORDERABLES Final Resu lt [facility]GHAN [id number] Department [place] [address] * (ABNORMAL) Pro B-type natriuretic peptide (02/16/2023 6:00 AM CDT) NT-proBNP 2,307(H) <=450 pg/mL [facility]AUGHAN Comment: Interpretive Comments: [...] Interpretive Data Last Revised Date: 2018. Blood 02/16/2023 6:00 AM CDT 02/16/2023 7:11 AM CDT Camille BRUCE LAB BLOOD ORDERABLES Final Resu lt [facility] [address] Department [place] [address] * eGFR (02/16/2023 6:00 AM CDT) eGFR 44 mL/min/1. 73 m2 [facility]AUGHAN Comment: Interpretive [...] interpretive data was last reviewed 2021. Blood 02/16/2023 6:00 AM CDT 02/16/2023 6:10 AM CDT Result [facility] Shade Payne MD LAB BLOOD ORDERABLES Final Result Performing Organization Address [facility] Co de Phone Number [facility] VAUGHAN [address] Department [place] [address] * Urine culture Urine (02/16/2023 6:00 AM CDT) Report Final Report: Less than 100,000 colonies/mL (clinically insignificant growth based on current clinical standards) [facility] Comment:Testing performed by : [facility], [address] [place]., [address] Organism (CLINICALLY INSIGNIFICANT GROWTH [facility] Urine 02/16/2023 6:00 AM CDT 02/16/2023 10:05 AM CDT Narrative [facility] - 02/17/2023 11:16 AM CDT Urine culture reflexed based upon urinalysis results. Testing performed by [facility] ([phone]) Result [facility] Shade Payne MD LAB MICROBIOLOGY - GENERAL ORDERABLES Final Result Performing Organization Address [facility] Co de Phone Number [facility] VAUGHAN [address] Department [place] [address] * (ABNORMAL) Urinalysis, microscopic only (02/16/2023 6:00 AM CDT) WBC, ur >50(A) 0 - 5 /HPF [facility] RBC, ur >50(A) 0 - 2 /HPF [facility] Culture Reflex Comment Reflex to urine culture will be performed. [facility] Urine 02/16/2023 6:00 AM CDT 02/16/2023 6:17 AM CDT Shade Payne MD LAB URINE ORDERABLES Final Result [facility] [address] Department [place] [address] * (ABNORMAL) Differential, auto (02/16/2023 6:00 AM CDT) Neutrophil abs 7.6(H) 1.7 - 6.5 K/cumm [facility] Imm gran abs 0.1 0.0 - 0.1 K/cumm [facility] Lymphocyte abs 1.1 0.8 - 3.3 K/cumm [facility] Monocyte abs 0.7 0.2 - 0.8 K/cumm [facility] Eosinophil abs 0.4 0.0 - 0.5 K/cumm [facility] Basophil abs 0.1 0.0 - 0.1 K/cumm [facility] Neutrophil pct 76.8 % [facility] Comment: Interpretive Data Percent cell count reference ranges are not reported, since discordance with absolute values may lead to misinterpretation of CBC data. Current Interpretive Data was last revised on 2017. Imm gran pct 0.8 % [facility] Comment: Interpretive Data Percent cell [...] revised on 2017. Monocyte pct 7.4 % [facility] Comment: Interpretive Data Percent cell count reference ranges are not reported, since discordance with absolute values may lead to misinterpretation of CBC data. Current Interpretive Data was last revised on 2017. Eosinophil pct 3.8 % [facility] Comment: Interpretive Data Percent cell [...] Data was last revised on 2017. Blood 02/16/2023 6:00 AM CDT 02/16/2023 6:10 AM CDT Shade Panye MD LAB BLOOD ORDERABLES Final Result Performing Organization Address [facility] Co de Phone Number [facility] [address] Department [place] [address] * (ABNORMAL) Protime-INR (02/16/2023 6:00 AM CDT) PT 18.4(H) 10.3 - 13.7 sec [facility] INR 1.61(H) 0.90 - 1.20 [facility] Comment: Interpretive data Oral anticoagulant therapeutic ranges: Venous thromboembolism prophylaxis or treatment: 2.0-3.0 CARDIOLOGY Standard range: 2.0-3.0 High-intensity range: 2.5-3.5 Refer to indication-specific guidelines for appropriate target ranges for prosthetic heart valve replacement. Current interpretive data was last revised on 2019. Blood 02/16/2023 6:00 AM CDT 02/16/2023 6:10 AM CDT Shade Payne MD LAB BLOOD ORDERABLES Final Result Performing Organization Address [facility] Co de Phone Number [facility] [id number] Department [place] [address] * (ABNORMAL) Comprehensive metabolic panel (02/16/2023 6:00 AM CDT) Sodium 138 135 - 145 mmol/L [facility] Potassium, pl 3.9 3.3 - 4.9 mmol/L [facility] Chloride 99 97 - 110 mmol/L [facility] CH CO2 29 22 - 32 mmol/L [facility] CH Anion gap 10 2 - 15 mmol/L [facility] BUN 49(H) 6 - 25 mg/dL [facility] Creatinine 1.21(H) 0.60 - 1.10 mg/dL [facility] Glucose 95 70 - 199 mg/dL [facility] Comment: Interpretive Data Fasting glucose [...] Calcium 9.8 8.5 - 10.3 mg/dL [facility] Bilirubin, total 0.3 0.1 - 1.2 mg/dL [facility] CH Protein, pl 7.3 6.5 - 8.5 g/dL [facility] Albumin 3.7 3.5 - 5.0 g/dL [facility] Alk phos 115 40 - 130 Units/L [facility] ALT 9 7 - 45 Units/L [facility] AST 17 10 - 45 Units/L [facility] Blood 02/16/2023 6:00 AM CDT 02/16/2023 6:10 AM CDT us Shade Payne MD LAB BLOOD ORDERABLES Final Result [facility] [address] Department [place] [address] * (ABNORMAL) CBC with auto differential (02/16/2023 6:00 AM CDT) WBC 9.9 3.8 - 9.9 K/cumm [facility] Hgb 14.2 11.9 - 15.5 g/dL [facility] Hct 45.0 35.6 - 45.5 % [facility] Plt 340 150 - 400 K/cumm [facility] MPV 9.0(L) 9.1 - 12.3 fL [facility] RBC 5.34(H) 3.90 - 5.20 M/cumm [facility] MCV 84.3 81.3 - 96.4 fL [facility] MCH 26.6(L) 27.1 - 33.3 pg [facility] MCHC 31.6(L) 32.3 - 35.7 g/dL [facility] RDW CV 14.5 11.1 - 14.9 % [facility] RDW SD 44.5 35.7 - 48.1 fL [facility] NRBC abs 0.00 0.00 - 0.01 K/cumm [facility] Blood 02/16/2023 6:00 AM CDT 02/16/2023 6:10 AM CDT us Shade Payne MD LAB BLOOD ORDERABLES Final Result [facility] [address] Department [place] [address] * (ABNORMAL) Urinalysis reflex to microscopic and culture Urine (02/16/2023 6:00 AM CDT) Color, ur Red(A) Yellow [facility] Clarity, ur Cloudy(A) Clear [facility] Specific gravity, ur 1.012 1.003 - 1.030 [facility] pH, urine 6.0 [facility] Protein, ur ql 3+(A) Negative [facility] Glucose, ur ql Negative Negative [facility] Ketones, ur Trace Negative [facility] Bilirubin, ur Negative Negative [facility] Blood, ur 2+(A) Negative [facility] Urobilinogen, ur <2.0 <2.0 mg/dL [facility] Nitrite, ur Negative Negative [facility] Leukocyte esterase, ur 2+(A) Negative [facility] UA reflex comment Reflex to microscopic UA will be performed. [facility] Urine 02/16/2023 6:00 AM CDT 02/16/2023 6:17 AM CDT Narrative [facility] - 02/16/2023 6:30 AM CDT ?? Urine pH is affected by diet, medications, systemic acid-base disturbances, and renal tubular function. ??pH may affect urinary stone formation. ??For example, urine pH below 6.0 may help reduce the tendency for calcium phosphate stones and pH greater than 6.0 may reduce the tendency for uric acid stone formation. Source: [facility]. Last revised 06-29-2017 us Shade Payne MD LAB MICROBIOLOGY - GENERAL ORDERABLES Final Result [facility] [address] Department [place] [address] documented in this encounter Visit Diagnoses Diagnosis Hematuria, gross- Primary Gross hematuria Acute cystitis with hematuria documented in this encounter Administered Medications Inactive Administered Medications - up to 3 most recent administrations Medication Order MAR Action Action Date Dose Rate Site cefTRIAXone (ROCEPHIN) 1,000 mg/10 mL in sterile water (premix) 1,000 mg 1,000 mg, intravenous, at 600 mL/hr, Administer over 1 Minutes, Every 24 hours scheduled, First dose (after last modification) on Katy 02/16/23 at 0729, Indications: Urinary Tract/Genitourinary InfectionIndications:Urinar y Tract/Genitourinary Infection Given 02/16/2023 7:39 AM CDT 1,000 mg 600 mL/hr furosemide (LASIX) tablet 20 mg 20 mg, oral, 2 times daily, First dose on Katy 02/16/23 at 1048 Given 02/16/2023 11:07 AM CDT 20 mg sodium chloride 0.9% bolus 500 mL 500 mL, intravenous, Once, On Katy 02/16/23 at 0712, For 1 dose New Bag 02/16/2023 7:38 AM CDT 500 mL spironolactone (ALDACTONE) tablet 25 mg 25 mg, oral, 2 times daily, First dose on Katy 02/16/23 at 1048 Given 02/16/2023 11:07 AM CDT 25 mg documented in this encounter Discontinued Medications Medication Sig Discontinue Reason Start Date End Da te furosemide (LASIX) 20 mg tablet Take two tablet in am( to make 40 mg) and one tablet in pm 02/09/2023 02/16/2023 documented as of this encounter Historical Medications * This list may reflect changes made after this encounter. furosemide (LASIX) 20 mg tablet Take 1 tablet (20 mg total) by mouth 2 (two) times a day 02/21/[address]/ER (UCERIS) 9 mg tablet, delayed & ext.release Take 1 tablet (9 mg total) by mouth daily 01/22/2023 03/09/2023 metOLazone (ZAROXOLYN) 2.5 mg tabletIndications :Peripheral Edema due to Chronic Heart Failure Take 2 tablets (5 mg total) by mouth daily 08/31/2023 potassium chloride ER 20 mEq CR tablet Take 1 tablet (20 mEq total) by mouth daily 07/19/2023 aspirin 81 mg enteric coated tablet Take 1 tablet (81 mg total) by mouth daily 01/11/2024 added in this encounter Active and Recently Administered Medications Times are shown in CDT. Scheduled Medication Order 02/14/2023 02/15/2023 02/16/2023 cefTRIAXone (ROCEPHIN) 1,000 mg/10 mL in sterile water (premix) 1,000 mg 1,000 mg, intravenous, at 600 mL/hr, Administer over 1 Minutes, Every 24 hours scheduled, First dose (after last modification) on Katy 02/16/23 at 0729, Indications: Urinary Tract/Genitourinary Infection 0739 (Given - Provid er: Moriah Gamez RN) furosemide (LASIX) tablet 20 mg 20 mg, oral, 2 times daily, First dose on Katy 02/16/23 at 1048 1107 (Given - Provid er: Moriah Gamez RN) sodium chloride 0.9% bolus 1,000 mL 1,000 mL, intravenous, Once, On Katy 02/16/23 at 0636, For 1 dose 0728 (Not Given - Pr ovider: Moriah Gamez RN - Reason: Order Discontinued - Comment: verbal Ruma Cafi) sodium chloride 0.9% bolus 500 mL (COMPLETED) 500 mL, intravenous, Once, On Katy 02/16/23 at 0712, For 1 dose 0738 (New Bag - Prov ider: Moriah Gamez RN)0941 (Stopped - Provider: Moriah Gamez RN) spironolactone (ALDACTONE) tablet 25 mg 25 mg, oral, 2 times daily, First dose on Katy 02/16/23 at 1048 1107 (Given - Provid er: Moriah Gamez RN) documented in this encounter Orders Medications Ordered That Alhaji ht Not Have Been Administered Count Last Ordered Date First Ordered Date cefTRIAXone (ROCEPHIN) 1,000 mg in sterile water injection 1 02/16/2023 cefTRIAXone (ROCEPHIN) 1,000 mg/10 mL in sterile water (premix) 1,000 mg 1 02/16/2023 sodium chloride 0.9% bolus 1,000 mL 1 02/16 documented in this encounter Additional Health Concerns Infection Onset Date Last Indicated Resolved Time COVID: Suspected 02/16/2023 02/16/2023 02/16/2023 8:33 AM CDT documented as of this encounter Care Teams Obstetrics Scrub Nurse Relationship Specialty Start Date End Date Pepper Morgan MD PCP - General 09/16/16 Hank Garibay MD [address] [place] [facility] [address] [place] [address] Surgeon Orthopedic Surgery 03/27/17 Jacky Murry MD [address] [facility] [facility] [address] [place] [facility] [address] [place] [address] Ophthalmology 03/27/17 Puma Mckenzie MD [address] [facility] [facility] [address] [address] [place] [facility] [address] [place] [address] Surgeon Orthopedic Surgery 07/11/19 Neha Jackson, PT Physical Therapist Physical Therapy 12/01/21 Stalin Arauz MD [address] [place] [address] Consulting Physician Cardiology 12/08/22 Tiffany Rojas PA [address] [place] [address] Gastroenterology 12/30/22 documented as of this encounter
--- OUTSIDE RECORDS SUMMARY | 2024-06-18 18:53 | XMS_ITS | Encounter Summary ---
Author Organization [facility] Address [address] [place] [address] Care Team Providers Care Auto Locator Name Role Phone Pepper Morgan MD Primary Care Provider + [phone] Hank Garibay MD Unavailable [phone] Jacky Murry MD Unavailable [phone] Puma Mckenzie MD Unavailable [phone] Neha Jackson PT Unavailable Unavailable Stalin Arauz MD Unavailable [phone] Tiffany Rojas Unavailable [phone] Encounter Details Date Type Department Care Team (Late st Contact Info) Description 01/30/2023 Telephone [employer] Playground Attendant at [address] [place] [address] Hai Dalton MA Social History [...] on file 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 Patient to call back with any questions. * Telephone Encounter - Hai Dalton MA - 01/30/2023 8:27 AM CDT Patient called to let you know her weight is stable and that she is not retaining water. She has not taken Jardiance. documented in this encounter Plan of Treatment [...] on filedocumented in this encounter Care Teams Auto Locator Relationship Specialty Start Date End Date Pepper Morgan MD PCP - General 09/16/16 Hank Garibay MD [address] [place] [address] [place] [address] Surgeon Orthopedic Surgery 03/27/17 Jacky Murry MD [address] [facility] [address] [place] [place] [facility] [address] [place] [address] Ophthalmology 03/27/17 Puma Mckenzie MD [address] [facility] [address] [place] [facility] [address] [place] [address] Surgeon Orthopedic Surgery 07/11/19 Neha Jackson, PT Physical Therapist Physical Therapy 12/01/21 Stalin Arauz MD [address] [facility] [address] [place] [address] Consulting Physician Cardiology 12/08/22 Tiffany Rojas PA [address] [facility] [address] [address] [place] [address] Gastroenterology 12/30/22 documented as of this encounter
--- OUTSIDE RECORDS SUMMARY | 2024-06-18 18:53 | XMS_ITS | Encounter Summary ---
Author Organization [facility] Address [address] [place] [address] Care Team Providers Care Manager Specialty Name Role Phone Pepper Morgan MD Primary Care Provider + [phone] Hank Garibay MD Unavailable [phone] Jacky Murry MD Unavailable [phone] Puma Mckenzie MD Unavailable [phone] Neha Jackson PT Unavailable Unavailable Stalin Arauz MD Unavailable [phone] Tiffany Rojas Unavailable [phone] Encounter Details Date Type Department Care Team (Late st Contact Info) Description 01/25/2023 Telephone Rex Supervisor Carding at [address] [place] [address] Stalin Arauz MD [address] [place] [address] [address] [place] [address] Social History Tobacco Use Types [...] any clubs o r organizations such as adventism groups, unions, fraternal or athletic groups, or [...] on file 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 documented in this encounter Plan of Treatment [...] mouth 2 (two) times a day Reorder 08/05/2022 01/25/2023 documented as of this encounter Care Teams Manager Specialty Relationship Specialty Start Date End Date Pepper Morgan MD PCP - General 09/16/16 Hank Garibay MD [address] [facility] [address] [place] [facility] [address] [place] [address] Surgeon Orthopedic Surgery 03/27/17 Jacky Murry MD [address] [facility] [address] [place] [place] [facility] [address] [place] [address] Ophthalmology 03/27/17 Puma Mckenzie MD [address] [facility] [address] [place] [facility] [address] [place] [address] Surgeon Orthopedic Surgery 07/11/19 Neha Jackson, PT Physical Therapist Physical Therapy 12/01/21 Stalin Arauz MD [address] [facility] [address] [place] [address] Consulting Physician Cardiology 12/08/22 Tiffany Rojas PA [address] [facility] [address] [place] [address] Gastroenterology 12/30/22 documented as of this encounter
--- OUTSIDE RECORDS SUMMARY | 2024-06-18 18:53 | XMS_ITS | Encounter Summary ---
Author Organization [facility] Address [address] [facility] [address] [place] [address] Care Team Providers Care Quick Mixer Operator Name Role Phone Pepper Morgan MD Primary Care Provider Hank Garibay MD Unavailable [phone] Jacky Murry MD Unavailable [phone] Puma Mckenzie MD Unavailable [phone] Neha Jackson PT Unavailable Unavailable Stalin Arauz MD Unavailable [phone] Tiffany Rojas PA Unavailable [phone] Encounter Details Date Type Department Care Team (Late st Contact Info) Description 01/30/2023 Telephone [facility] [address] [facility] [address] [place] [address] Klaus Deshpande MD [address] [place] [address] [address] [place] [address] Social History Tobacco Use Types [...] any clubs o r organizations such as druze groups, unions, fraternal or athletic groups, or [...] in a fci (including now)? 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 * Telephone Encounter - Fabby Horn - 01/30/2023 1:23 PM CDT Does she take this new med in addition to the pramipexole? * Telephone Encounter - Fabby Horn - 01/30/2023 8:41 AM CDT Patient asks if something else can be prescribed for her RLS? She states she is not getting any rest and the only thing that helps her symptoms is pacing through the night. She made an appt to come in but it's for your next available slot which is mid-March. documented in this encounter Plan of Treatment [...] documented as of this encounter Care Teams Quick Mixer Operator Relationship Specialty Start Date End Date Pepper Morgan MD PCP - General 09/16/16 Hank Garibay MD [address] [facility] [address] [place] [address] Surgeon Orthopedic Surgery 03/27/17 Jacky Murry MD [address] [facility] [address] [place] [address] Ophthalmology 03/27/17 Puma Mckenzie MD [address] [facility] [address] [place] [address] Surgeon Orthopedic Surgery 07/11/19 Neha Jackson, PT Physical Therapist Physical Therapy 12/01/21 Stalin Arauz MD [address] [facility] [address] [place] [address] Consulting Physician Cardiology 12/08/22 Tiffany Rojas PA [address] [facility] [address] [place] [address] Gastroenterology 12/30/22 documented as of this encounter
--- OUTSIDE RECORDS SUMMARY | 2024-06-18 18:53 | XMS_ITS | Encounter Summary ---
Author Organization [facility] Address [address] [facility] [address] [place] [address] Care Team Providers Care Receptionist Name Role Phone Pepper Morgan MD Primary Care Provider + [phone] Hank Garibay MD Unavailable [phone] Jacky Murry MD Unavailable [phone] Puma Mckenzie MD Unavailable [phone] Neha Jackson PT Unavailable Unavailable Stalin Arauz MD Unavailable [phone] Tiffany Rojas PA Unavailable [phone] Encounter Details Date Type Department Care Team (Late st Contact Info) Description 01/26/2023 Telephone [facility] [address] [facility] [address] [place] [address] Klaus Deshpande MD [address] [place] [address] [address] [place] [address] Social History Tobacco Use Types [...] often do you attend chur ch or scientologist services? 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 Provider not in the office this day. documented in this encounter Plan of [...] on filedocumented in this encounter Care Teams Receptionist Relationship Specialty Start Date End Date Pepper Morgan MD PCP - General 09/16/16 Hank Garibay MD [address] [place] [address] DR WARNER Sheridan [address] [address] Surgeon Orthopedic Surgery 03/27/17 Jacky Murry MD [address] [place] [address] DR WARNER Sheridan [facility] [address] [place] [address] Ophthalmology 03/27/17 Puam Mckenzie MD 4 [facility] [address] WARNER Sheridan [facility] [address] [place] [address] Surgeon Orthopedic Surgery 07/11/19 Neha Jackson, PT Physical Therapist Physical Therapy 12/01/21 Stalin Arauz MD [address] [facility] [address] [place] [address] Consulting Physician Cardiology 12/08/22 Tiffany Rojas PA [address] [facility] [address] [place] [address] Gastroenterology 12/30/22 documented as of this encounter
--- OUTSIDE RECORDS SUMMARY | 2024-06-18 18:53 | XMS_ITS | Encounter Summary ---
Author Organization [facility] Address [address] [address] Care Team Providers Care Indoor Plant Technician Name Role Phone Pepper Morgan MD Primary Care Provider + [phone] Hank Garibay MD Unavailable [phone] Jacky Murry MD Unavailable [phone] Puma Mckenzie MD Unavailable [phone] Neha Jackson PT Unavailable Unavailable Stalin Arauz MD Unavailable [phone] Tiffany Rojas Unavailable [phone] Reason for Visit * Reason Comments Follow-up Encounter Details Date Type Department Care Team (Late st Contact Info) Description 02/06/2023 1:00 PM CDT Office Visit [facility] [address] [facility] [place] [address] Sabine Dasilva NP [address] [place] [address] Chronic heart failure with preserved ejection fraction (CMS/HCC) (HCC) (Primary Dx); Paroxysmal atrial fibrillation (CMS/HCC) (HCC); Hereditary essential tremor; 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 Social History [...] in a jail (including now)? 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 Gender Identity Not on file Sexual Orientation Not on file Occupation Industry Job Start Date Job End Date retired Not on file Not on file Not on file documented as of this encounter Last Filed Vital Signs Vital Sign Reading Time Taken Comments Blood Pressure 100/70 02/06/2023 12:51 PM CDT Pulse 60 02/06/2023 12:51 PM CDT Temperature 36.3 ??C (97.3 ??F) 02/06/2023 12:51 PM C DT Respiratory Rate 20 02/06/2023 12:51 PM CDT Oxygen Saturation 97% 02/06/2023 12:51 PM CDT Inhaled Oxygen Concentration - - Weight 83.9 kg (185 lb) 02/06/2023 12:51 PM CDT Height - - Body Mass Index 36.13 01/09/2023 10:27 AM CDT documented in this encounter Progress Notes * Sabine Dasilva, NOEL - 02/06/2023 1:00 PM CDT Images from the original note were not included. Patient ID: Tess Benedict is a 87 y.o. female. Chief Complaint. Chief Complaint Patient presents with Follow-up HPI. Patient is a 87 y.o. female HPI Presents for follow up on SOB. Mild improvement, swelling down. Sees cardiology tomorrow. No more episodes of diarrhea. No further symptoms or concerns today. Past [...] HIP ARTHROPLASTY Left 11/01/2021 Dr. Mckenzie, [facility]. Social History Tobacco Use Smoking status: [...] Current Medications: Outpatient Encounter Medications as of 02/06/2023 Medication Sig Dispense Refill albuterol HFA (Proventil HFA) 90 mcg/actuation inhaler Inhale 2 puffs every 6 (six) hours as neededfor wheezing or shortness of breath (Patient not taking: Reported on 01/09/2023) 6.7 g 0 cetirizine (ZyrTEC) 10 mg tablet Take [...] mouth 2 (two) times a day gabapentin enacarbil 300 mg tablet extended release Take 300 mg by mouth nightly [address] (PROTONIX) 40 mg EC tablet Take 1 tablet (40 mg total) by mouth daily 30 tablet 11 polyethylene glycol (MIRALAX) 17 gram packet Take 1 packet (17 g total) by mouth daily as needed for constipation (Patient not taking: Reported on 01/09/2023) pramipexole (MIRAPEX) 0.25 mg tablet Take 1 [...] for muscle spasms 30 tablet 0 [DISCONTINUED] empagliflozin (JARDIANCE) 10 mg tablet Take 1 tablet (10 mg total) by mouth daily 90tablet 3 [DISCONTINUED] ondansetron (ZOFRAN) 4 mg tablet Take 1 tablet (4 mg total) by mouth every 8 (eight)hours as needed for nausea or vomiting (Patient not taking: Reported on 01/09/2023) 20 tablet 0 [DISCONTINUED] potassium chloride ER (KLOR-CON) 20 mEq CR tablet Take 2 tablets (40 mEq total) by mouth 2 (two) times a day (Patient not taking: Reported on 01/09/2023) 120 tablet 11 No facility-administered encounter medications on file as of 02/06/2023. Allergies Allergies Allergen Reactions Celecoxib Anaphylaxis Scopolamine [...] 03/25/2014, 04/17/2015 Influenza, Unspecified 03/13/2018, 03/19/2021, 03/10/2022 JeNaCell SARS-CoV-2 Monovalent Vaccination (12+ Yrs) DOSS-READY TO [...] disturbance. The patient is not nervous/anxious. BP 100/70 Pulse 60 Temp 36.3 ??C (97.3 ??F) Resp 20 Wt 83.9 kg (185 lb) LMP (LMP Unknown) SpO2 97% BMI 36.13 kg/m?? Body mass index is 36.13 kg/m??. Physical Exam Vitals and nursing note reviewed. Constitutional: Appearance: Normal appearance. HENT: Head: Normocephalic and atraumatic. Eyes: Conjunctiva/sclera: Conjunctivae normal. Pupils: Pupils are equal, round, and reactive to light. Cardiovascular: Rate and Rhythm: Normal rate and regular rhythm. Pulses: Normal pulses. Heart sounds: Normal heart sounds. No murmur heard. Pulmonary: Effort: No respiratory distress (mild accessory muscle use). Breath sounds: Normal breath sounds. No stridor. [...] and all orders for this visit: Chronic heart failure with preserved ejection fraction (CMS/HCC) ([facility]) (Primary) Assessment & Plan: most recent ECHO in 05/2022 showed cardiomegaly and mild pulmonary HTN with EF of 70%. No more edema on exam today, no acute exam findings. Continue current regimen including plavix, spironolactone, lasix, felodipine, and propranolol. Paroxysmal atrial fibrillation (CMS/HCC) ([facility]) Assessment & Plan: Controlled on plavix, propranolol, felodipine. HR regular on exam today, BP stable. No acute exam findings continue current regimen and follow with cardiology tomorrow. Hereditary essential tremor Assessment & Plan: No tremor on exam today, patient requesting refill on clonazepam. Last fill was 12/08 for #30 with 5refills. Advised patient to call pharmacy. 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 Assessment & Plan: BP stable in office today on current therapy. No acute findings on exam. Continue current regimen and low salt diet. Return in about 5 months (around 07/13/2023), or if symptoms worsen or fail to improve, for Next scheduled follow up. Sabine Dasilva NP Cosigned by Pepper Morgan MD at 02/06/2023 10:00 PM CDT documented in this encounter Miscellaneous Notes * Assessment & Plan Note - Sabine Dasilva NP - 02/06/2023 8:07 PM CDT Associated Problem(s): Atrial fibrillation (CMS/HCC) (HCC) Controlled on plavix, propranolol, felodipine. HR regular on exam today, BP stable. No acute exam findings continue current regimen and follow with cardiology tomorrow. * Assessment & Plan Note - Sabine Dasilva NP - 02/06/2023 8:06 PM CDT Associated Problem(s): 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 BP stable in office today on current therapy. No acute findings on exam. Continue current regimen and low salt diet. * Assessment & Plan Note - Sabine Dasilva NP - 02/06/2023 8:05 PM CDT Associated Problem(s): Acute on chronic heart failure with preserved ejection fraction (CMS/HCC) (HCC) most recent ECHO in 05/2022 showed cardiomegaly and mild pulmonary HTN with EF of 70%. No more edema on exam today, no acute exam findings. Continue current regimen including plavix, spironolactone, lasix, felodipine, and propranolol. * Assessment & Plan Note - Sabine Dasilva NP - 02/06/2023 7:59 PM CDT Associated Problem(s): Essential tremor No tremor on exam today, patient requesting refill on clonazepam. Last fill was 12/08 for #30 with 5refills. Advised patient to call pharmacy. documented in this encounter Plan of Treatment [...] of this encounter Visit Diagnoses Diagnosis Chronic heart failure with preserved ejection fraction (CMS/HCC) (HCC)- Primary Paroxysmal atrial fibrillation (CMS/HCC) (HCC) Atrial fibrillation Hereditary essential tremor Essential and other specified forms of tremor 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 Essential hypertension, benign documented in this encounter Discontinued Medications Medication Sig Discontinue Reason Start Date End Da te empagliflozin (JARDIANCE) 10 mg tablet Take 1 tablet (10 mg total) by mouth daily Therapy completed 01/17/2023 02/06/2023 potassium chloride ER (KLOR-CON) 20 mEq CR tablet Take 2 tablets (40 mEq total) by mouth 2 (two) times a day Therapy completed 09/26/2022 02/06/2023 ondansetron (ZOFRAN) 4 mg tabletIndications:nause a and diarrhea Take 1 tablet (4 mg total) by mouth every 8 (eight) hours as needed for nausea or vomiting Therapy completed 12/16/2022 02/06/2023 documented as of this encounter Care Teams Indoor Plant Technician Relationship Specialty Start Date End Date Pepper Morgan MD PCP - General 09/16/16 Hank Garibay MD [address] [facility] [address] WARNER Sheridan [facility] [address] [place] [address] Surgeon Orthopedic Surgery 03/27/17 Jacky Murry MD [address] [facility] [address] WARNER Sheridan [facility] [address] [place] [address] Ophthalmology 03/27/17 Puma Mckenzie MD [address] [facility] [address] WARNER Sheridan [facility] [address] [place] [address] Surgeon Orthopedic Surgery 07/11/19 Neha Jackson, PT Physical Therapist Physical Therapy 12/01/21 Stalin Arauz MD [address] [facility] [address] [place] [address] Consulting Physician Cardiology 12/08/22 Tiffany Rojas PA [address] [facility] [address] [place] [address] Gastroenterology 12/30/22 documented as of this encounter
--- OUTSIDE RECORDS SUMMARY | 2024-06-18 18:53 | XMS_ITS | Encounter Summary ---
Author Organization [facility] Address [address] [place] [address] Care Team Providers Care Pharmacy District Manager Name Role Phone Pepper Morgan MD Primary Care Provider + [phone] Hank Garibay MD Unavailable [phone] Jacky Murry MD Unavailable [phone] Puma Mckenzie MD Unavailable [phone] Neha Jackson PT Unavailable Unavailable Stalin Arauz MD Unavailable [phone] Tiffany Rojas Unavailable [phone] Encounter Details Date Type Department Care Team (Late st Contact Info) Description 01/06/2023 10:50 AM CDT Lab [address] [address] Chronic heart failure with preserved ejection fraction (CMS/HCC) ([facility]) Social History Tobacco Use Types Packs/Day Years [...] on file 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 73 m2 [facility] [...] interpretive data was last reviewed 2021. Blood 01/06/2023 11:0 0 AM CDT 01/06/2023 11:56 AM CDT us Stalin Arauz MD LAB BLOOD ORDERABLES Final Resu lt [facility] ([place]) 1 [facility] Department [place] [address] * (ABNORMAL) Pro B-type natriuretic peptide (01/06/2023 11:00 AM CDT) NT-proBNP 3,466(H) <=450 pg/mL [facility] ([place]) Comment: Interpretive Comments: A. Dyspnea in Acute [...] Interpretive Data Last Revised Date: 2018. Blood 01/06/2023 11:0 0 AM CDT 01/06/2023 11:56 AM CDT us Stalin Arauz MD LAB BLOOD ORDERABLES Final Resu lt [facility] ([place]) 1 [facility] [place] [address] * (ABNORMAL) Basic metabolic panel (01/06/2023 11:00 AM CDT) Sodium 140 135 - 145 mmol/L [facility] ([place]) Potassium, pl 5.3(H) 3.3 - 4.9 mmol/L [facility] ([place]) Chloride 101 97 - 110 mmol/L [facility] ([place]) CO2 30 22 - 32 mmol/L [facility] ([place]) Anion gap 9 2 - 15 mmol/L [facility] ([place]) BUN 35(H) 6 - 25 mg/dL [facility] ([place]) Creatinine 1.29(H) 0.60 - 1.10 mg/dL [facility] ([place]) Glucose 109 70 - 199 mg/dL [facility] ([place]) Comment: Interpretive Data Fasting glucose [...] 2022. Calcium 9.0 8.5 - 10.3 mg/dL [facility] ([place]) Blood 01/06/2023 11:0 0 AM CDT 01/06/2023 11:56 AM CDT Stalin Arauz MD LAB BLOOD ORDERABLES Final Resu lt [facility] ([place]) 1 [facility] Department [place] [address] documented in this encounter Visit Diagnoses Diagnosis Chronic heart failure with preserved ejection fraction (CMS/HCC) (HCC) documented in this encounter Care Teams Pharmacy District Manager Relationship Specialty Start Date End Date Pepper Morgan MD PCP - General 09/16/16 Hank Garibay MD [address] [place] [address] DR HYLTON B [facility] [address] [place] [address] Surgeon Orthopedic Surgery 03/27/17 Jacky Murry MD [address] [place] [address] DR WARNER Sheridan [facility] [address] [place] [address] Ophthalmology 03/27/17 Puma Mckenzie MD [address] [facility] [address] WARNER Sheridan [facility] [address] [place] [address] Surgeon Orthopedic Surgery 07/11/19 Neha Jackson, PT Physical Therapist Physical Therapy 12/01/21 Stalin Arauz MD [address] [facility] [address] [place] [address] Consulting Physician Cardiology 12/08/22 Tiffany Rojas PA [address] [facility] [address] [place] [address] Gastroenterology 12/30/22 documented as of this encounter
--- OUTSIDE RECORDS SUMMARY | 2024-06-18 18:53 | XMS_ITS | Encounter Summary ---
Author Organization [facility] Address [address] [facility] [address] [place] [address] Care Team Providers Care Curbstone Setter Name Role Phone Pepper Morgan MD Primary Care Provider + [phone] Hank Garibay MD Unavailable [phone] Jacky Murry MD Unavailable [phone] Puma Mckenzie MD Unavailable [phone] Neha Jackson PT Unavailable Unavailable Stalin Arauz MD Unavailable [phone] Tiffany Rojas Unavailable [phone] Encounter Details Date Type Department Care Team (Late st Contact Info) Description 01/12/2023 Telephone [facility] Lead at [address] [place] [address] Hai Dalton MA Social History [...] on file 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 She states she is getting her labs done on Monday and asked about Jardiance papers.(?) Pleaseadvise documented in this encounter Plan of Treatment [...] on filedocumented in this encounter Care Teams Curbstone Setter Relationship Specialty Start Date End Date Pepper Morgan MD PCP - General 09/16/16 Hank Garibay MD [address] [place] [address] DR WARNER Sheridan [facility] [address] [place] [address] Surgeon Orthopedic Surgery 03/27/17 Jacky Murry MD [address] [place] [address] DR WARNER Sheridan [facility] [address] [place] [address] Ophthalmology 03/27/17 Puma Mckenzie MD [address] [facility] [address] WARNER Sheridan [facility] [address] [place] [address] Surgeon Orthopedic Surgery 07/11/19 Neha Jackson, PT Physical Therapist Physical Therapy 12/01/21 Stalin Arauz MD [address] [facility] [address] [place] [address] Consulting Physician Cardiology 12/08/22 Tiffany Rojas PA [address] [facility] [address] [place] [address] Gastroenterology 12/30/22 documented as of this encounter
--- OUTSIDE RECORDS SUMMARY | 2024-06-18 18:53 | XMS_ITS | Encounter Summary ---
Author Organization [facility] Address [address] [place] [address] Care Team Providers Care Cable Repairer Name Role Phone Pepper Morgan MD Primary Care Provider + [phone] Hank Garibay MD Unavailable [phone] Jacky Murry MD Unavailable [phone] Puma Mckenzie MD Unavailable [phone] Neha Jackson PT Unavailable Unavailable Stalin Aruaz MD Unavailable [phone] Tiffany Rojas PA Unavailable [phone] Reason for Visit * Reason Comments PT Treatment * Physical Therapy (Routine) - Closed Specialty Diagnoses / Procedures Referred By Contnahun t Referred To Contact Physical Therapy Diagnoses Gait disturbance Klaus Deshpande MD [address] [place] [address] DR OQUENDO [place] [address] Phone: tel: fax: External Order Referral ID Status Reason Start Date Expiration Date V isits Requested Visits Authorized [id number] Closed Specialty Services Required 11/11/2022 12/11/2023 24 24 Encounter Details Date Type Department Care Team (Late st Contact Info) Description 02/08/2023 10:45 AM CDT Therapy [facility] Physical [place] [address] Neha Jackson, KEVIN Gait disturbance (Primary Dx) Social History [...] attend chur ch or hindu services? 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 Pain: Denies pain. Objective: See treatment provided. Treatment Provided: Recumbent stepper x 6 min Seated: added 1.5# to B LE Marching x 20 LAQ x 20 each Toe raises x 20 each Sit to Stand x 5 repetitions Standing: Heel raises Marching Hip abduction Romberg on foam, EO and EC Tandem Rockerboard Step taps @ bar Forward step ups x 10 B LE 2 Sidestepping HEP includes: Access Code: [email or web address] - Seated March - 1-2 x daily [...] Assessment: Improved noted throughout with all activities. She continues to have fatigue and weakness, L LE > R LE. Plan: Continue PT POC. Start Time: 1055 End Time: 1135 Neha Jackson PT, DPT documented in this encounter Plan of Treatment [...] gait documented in this encounter Care Teams Cable Repairer Relationship Specialty Start Date End Date Pepper Morgan MD PCP - General 09/16/16 Hank Garibay MD 4 [facility] [address] WARNER Sheridan [facility] [address] [place] [address] Surgeon Orthopedic Surgery 03/27/17 Jacky Murry MD 4 [facility] [address] WARNER Sheridan [facility] [address] [place] [address] Ophthalmology 03/27/17 Puma Mckenzie MD [address] [facility] [address] WARNER [address] [place] [address] Surgeon Orthopedic Surgery 07/11/19 Neha Jackson, PT Physical Therapist Physical Therapy 12/01/21 Stalin Arauz MD [address] [facility] [address] [place] [address] Consulting Physician Cardiology 12/08/22 Tiffany Rojas PA [address] [facility] [address] [place] [address] Gastroenterology 12/30/22 documented as of this encounter
--- OUTSIDE RECORDS SUMMARY | 2024-06-18 18:53 | XMS_ITS | Encounter Summary ---
Author Organization [facility] Medical [facility] Address [address] [facility] [address] [place] [address] Care Team Providers Care Shop Director Name Role Phone Pepper Morgan MD Primary Care Provider + [phone] Hank Garibay MD Unavailable [phone] Jacky Murry MD Unavailable [phone] Puma Mckenzie MD Unavailable [phone] Neha Jackson PT Unavailable Unavailable Stalin Arauz MD Unavailable [phone] Tiffany Rojas Unavailable [phone] Encounter Details Date Type Department Care Team (Late st Contact Info) Description 02/15/2023 Telephone [place] Vice President Of Development at [address] [place] [address] Hai Dalton MA Social History [...] place to sleep or slept in a alf (including now)? 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 Returned her call regarding weight gain, sob, coughing. Needto know exactly what diuretics she is on and how much weight gain. documented in this encounter Plan of Treatment [...] on filedocumented in this encounter Care Teams Shop Director Relationship Specialty Start Date End Date Pepper Morgan MD PCP - General 09/16/16 Hank Garibay MD [address] [facility] [address] WARNER Sheridan [facility] [address] [place] [address] Surgeon Orthopedic Surgery 03/27/17 Jacky Murry MD [address] [facility] [address] WARNER hSeridan [facility] [address] [place] [address] Ophthalmology 03/27/17 Puma Mckenzie MD [address] [facility] [address] WARNER Sheridan [facility] [address] [place] [address] Surgeon Orthopedic Surgery 07/11/19 Neha Jackson, PT Physical Therapist Physical Therapy 12/01/21 Stalin Arauz MD [address] [facility] [address] [place] [address] Consulting Physician Cardiology 12/08/22 Tiffany oRjas PA [address] [facility] [address] [place] [address] Gastroenterology 12/30/22 documented as of this encounter
--- OUTSIDE RECORDS SUMMARY | 2024-06-18 18:53 | XMS_ITS | Encounter Summary ---
Author Organization [facility] Address [address] [facility] [address] [place] [address] Care Team Providers Care Rayon Winder Name Role Phone Pepper Morgan MD Primary Care Provider Hank Garibay MD Unavailable [phone] Jacky Murry MD Unavailable [phone] Puma Mckenzie MD Unavailable [phone] Neha Jackson PT Unavailable Unavailable Stalin Arauz MD Unavailable [phone] Tiffany Rojas Unavailable [phone] Reason for Visit * Reason Onset Date Comments tremor question 01/09/2023 Encounter Details Date Type Department Care Team (Late st Contact Info) Description 01/09/2023 Telephone [facility] [address] [place] [id number] Pepper Morgan MD [address] [place] [address] tremor question Social History Tobacco Use Types Packs/Day [...] attend chur ch or latter-day services? Never 12/29/2022 Do you belong to [...] in a usp (including now)? 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 Patient will call if she decides she wants to go back to Dr. Deshpande. * Telephone Encounter - Pepper Morgan MD - 01/09/2023 9:02 PM CDT Tell her I am absolutely fine with that plan. Offer a 2nd opinion consultation with Dr. Deshpande. She ishad a Parkinson's like tremor for years that is responded to the restless leg medication and is worth the 2nd opinion Dr. Morgan * Telephone Encounter - Milana Fuentes RN - 01/09/2023 2:08 PM CDT Called and spoke with the pt she states that when get got out of the hospital Her tremors were so much worst She can not play cards or eat She would like to move her pramipexole to 12 noon before she plays cards and 6 pm before she eats TOKMS:pt would like to move her pramipexole to noon and 6 pm so she can play cards and eat dinner her tremors are getting much worst Please advise * Telephone Encounter - Vickie Araujo - 01/09/2023 2:00 PM CDT Patient calling she has she has severe tremors. She cannot eat she shakes so bad. She was wanderingif she could take her med before playing card and at night or when she is going to do something.? Her neurologist already know this and he said that doctor knew what she was doing. [facility] cbn: [phone] documented in this encounter Plan of [...] on filedocumented in this encounter Care Teams Rayon Winder Relationship Specialty Start Date End Date Pepper Morgan MD PCP - General 09/16/16 Hank Garibay MD [address] [place] [address] DR WARNER Sheridan [facility] [address] [place] [address] Surgeon Orthopedic Surgery 03/27/17 Jacky Murry MD [address] [place] [address] DR WARNER Sheridan [facility] [address] [place] [address] Ophthalmology 03/27/17 Puma Mckenzie MD [address] [place] [address] DR WARNER Sheridan [facility] [address] [place] [address] Surgeon Orthopedic Surgery 07/11/19 Neha Jackson, PT Physical Therapist Physical Therapy 12/01/21 Stalin Arauz MD [address] [facility] [address] [place] [address] Consulting Physician Cardiology 12/08/22 Tiffany Rojas PA [address] [facility] [address] [place] [address] Gastroenterology 12/30/22 documented as of this encounter
--- OUTSIDE RECORDS SUMMARY | 2024-06-18 18:53 | XMS_ITS | Encounter Summary ---
Author Organization [facility] Address [address] [place] [address] Care Team Providers Care Housekeeping Supervisor Hotel Name Role Phone Pepper Morgan MD Primary Care Provider + [phone] Hank Garibay MD Unavailable [phone] Jacky Murry MD Unavailable [phone] Puma Mckenzie MD Unavailable [phone] Nhea Jackson PT Unavailable Unavailable Stalin Arauz MD Unavailable [phone] Tiffany Rojas PA Unavailable [phone] Reason for Visit * Reason Comments PT Treatment * Physical Therapy (Routine) - Closed Specialty Diagnoses / Procedures Referred By Contnahun t Referred To Contact Physical Therapy Diagnoses Gait disturbance Klaus Deshpande MD [address] [place] [address] [address] [place] [address] Phone: tel: fax: External Order Referral ID Status Reason Start Date Expiration Date V isits Requested Visits Authorized [id number] Closed Specialty Services Required 11/11/2022 12/11/2023 24 24 Encounter Details Date Type Department Care Team (Late st Contact Info) Description 02/01/2023 11:15 AM CDT Therapy [facility] Physical [place] [address] Chava Kennedy, KEVIN Gait disturbance (Primary Dx) [...] on file Legal Sex Female 4:33 AM CAREER COORDINATOR Gender Identity Not on file Sexual Orientation Not on file Occupation Industry Job Start Date Job End Date retired Not on file Not on file Not on file documented as of this encounter Progress Notes * Chava Kennedy, PT - 02/01/2023 11:15 AM CDT Physical Therapy Visit 02/01/2023 Tess Benedict 1935 Subjective: Tess reports she is having a hard time getting her legs moving. Pain: Denies pain. Objective: Reviewed HEP for understanding and technique. Treatment Provided: Recumbent stepper x 6 min Seated: added 1.5# to B LE Marching x 20 LAQ x 20 each Toe raises x 20 each Sit to Stand x 5 repetitions Standing: Heel raises Marching Hip abduction Romberg on foam, EO and EC Tandem Step taps @ bar Forward step ups x 10 B LE 2 Sidestepping HEP includes: Access Code: [email or web address] - Seated March - 1-2 x daily [...] home 4+x/week, working up your tolerance Assessment: Very fatigued after exercise on this date. Plan: Continue PT POC, progressing as tolerated. Start Time: 1104 End Time: 1134 Chava Kennedy PT documented in this encounter Plan of [...] gait documented in this encounter Care Teams Housekeeping Supervisor Hotel Relationship Specialty Start Date End Date Pepper Morgan MD PCP - General 09/16/16 Hank Garibay MD [address] [facility] [address] [place] [address] Surgeon Orthopedic Surgery 03/27/17 Jacky Murry MD [address] [facility] [address] [place] [address] Ophthalmology 03/27/17 Puma Mckenzie MD [address] [facility] [address] [place] [address] Surgeon Orthopedic Surgery 07/11/19 Neha Jackson, PT Physical Therapist Physical Therapy 12/01/21 Stalin Arauz MD [address] [facility] [address] [place] [address] Consulting Physician Cardiology 12/08/22 Tiffany Rojas PA [address] [facility] [place] [address] Gastroenterology 12/30/22 documented as of this encounter
--- OUTSIDE RECORDS SUMMARY | 2024-06-18 18:53 | XMS_ITS | Encounter Summary ---
Author Organization [facility] Address [address] [place] [address] Care Team Providers Care Monitor And Storage Bin Tender Name Role Phone Pepper Morgan MD Primary Care Provider + [phone] Hank Garibay MD Unavailable [phone] Jacky Murry MD Unavailable [phone] Puma Mckenzie MD Unavailable [phone] Neha Jackson PT Unavailable Unavailable Stalin Arauz MD Unavailable [phone] Tiffany Rojas PA Unavailable [phone] Reason for Visit * Reason Comments PT Initial Eval * Physical Therapy (Routine) - Closed Specialty Diagnoses / Procedures Referred By Olga t Referred To Contact Physical Therapy Diagnoses Gait disturbance Klaus Deshpande MD [address] [place] [address] [place] [address] Phone: tel: fax: External Order Referral ID Status Reason Start Date Expiration Date V isits Requested Visits Authorized [id number] Closed Specialty Services Required 11/11/2022 12/11/2023 24 24 Encounter Details Date Type Department Care Team (Late st Contact Info) Description 01/23/2023 11:00 AM CDT Therapy [facility] [place] [address] Khalida Garcia, PT Gait disturbance (Primary Dx) Social History Tobacco [...] in a assisted (including now)? 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 female Klaus Deshpande MD [address] [place] [address] DR [address] [place] [id number] ICD-9-CM ICD-10-CM 1. Gait disturbance 781.2 R26.9 Ambulatory referral order to Physical Therapy - PT Initial Eval Subjective Chief complaint: Pt c/o difficulty walking. She is unable to lift her legs to get into a car. She fell last week and had to scoot across the room to get to a phone. She denies injuries but is sore. Balance is an issue but doesn't typically fall. When out in public, she will use a rollator or a cart, but she does not like to use a walker if she can help it. She has restless legs that will start around 11 AM and will keep her awake at night. She also c/o burning in her legs. She will get muscle weakness when walking around. Rest will help improve her symptoms. She was recently in the hospital December 2022 and has felt her weakness worsen. Function: Prior Level of Function: She likes to walk up & down her driveway with her rollator and [facility] [employer] to ride a recumbent bike. Prior to hospitalization, she was riding the bike 10 minutes daily. She has 3 [address] from garage with railings on both sides. She is a member of her G[employer] and isactive in many meetings throughout the week. Current Functional Level: She needs to use a walker, cart, or motorized cart at the store. She is fatigued more easily and her balance has worsened. Getting up & down from a low chair is getting more challenging. Recent L ASHLEE 10/2021 Patient Goals: improve gait, improve strength, improve balance Objective Gait: decreased speed, lateral trunk shift bilaterally; pt report she feels like she waddles, likeher feet are wide apart , however does not present with wide TAYLOR while ambulating in clinic. Manual Muscle Testing: Left Right Hip Flexion 4/5 4/5 Knee Extension 4+/5 4+/5 Knee Flexion 4-/5 4-/5 Ankle DF 4/5 3/5 Balance: Timed Up and Go: Mora Balance: Mora Balance Scale 1. Sitting to Standing: Able to stand without using hands and stabilize independently 2. Standing Unsupported: Able to stand safely for 2 minutes 3. Sitting with Back Unsupported but Feet Supported on Floor or on a Stool: Able to sit safely and securely for 2 minutes 4. Standing to Sitting: Controls descent by using hands 5. Transfers: Able to transfer safely definite need of hands 6. Standing Unsupported with Eyes Closed: Able to stand 10 seconds with supervision 7. Standing Unsupported with Feet Together: Able to place feet together independently and stand 1 minute with supervision 8. Reach Forward with Outstretched Arm While Standing: Can reach forward confidently 25 cm (10 inches) 9. Automobile Travel Club Counselor Object from Floor from a Standing Position: Able to machine operator hop picker slipper safely and easily 10. Turning to Look Behind Over Left and Right Shoulders While Standing: Looks behind one side onlyother side shows less weight shift 11. Turn 360 Degrees: Able to turn 360 degrees safely but slowly 12. Place Alternate Foot on Step or Stool While Standing Unsupported: Needs assistance to keep fromfalling/unable to try 13. Standing Unsupported One Foot in Front: Able to take small step independently and hold 30 seconds 14. Standing on One Leg: Tries to lift leg unable to hold 3 seconds but remains standing independently Mora Balance Score: 40 5xSTS: 23.26 seconds without use of UEs Treatment Provided: Mora Balance Scale Seated: Marching x 20 LAQ x 20 each Toe raises x 20 each Sit to Stand x5 repetitions HEP includes: Access Code: [email or web address] - Seated March - 1-2 x daily [...] at home 4+x/week, working up your tolerance Assessment/Plan Assessment Impairments: abnormal coordination, activity tolerance, endurance, weight- bearing intolerance, abnormal gait, impaired safety, impaired balance, impaired body mechanics, lacks appropriate home exercise program, impaired physical strength Assessment details: Ms. Benedict is an 87 year old female who presents to the clinic with c/o difficulty walking, LE weakness, and decreased balance. She demonstrates decreased LE strength throughout, and scored a 40/56 on Mora Balance Scale indicating a moderate risk for falls. Impaired balance ismost evident with single leg activities. She fatigues easily throughout evaluation and requires frequent rest breaks. She will benefit from skilled physical therapy to address functional LE strengthening, balance training, and gait training to decrease fall risk, improve functional strength and endurance and improve quality of life. Goals LTG 1:: Pt will return to riding recumbent bike 5 min daily prior to rest. LTG 2:: Pt will improve Mora Balance Scale to 48/56 or better to demonstrate decreased fall risk. LTG 3:: Pt will improve 5x sit to stand to <20 seconds to demonstrate improved functional LE strength. LTG 4:: Pt will be able to perform 5 step taps on 6 step without assistance and without LOB. Plan Start time: 1100 End time: 1200 Therapy options: will be seen for skilled therapy services Planned modality interventions: cryotherapy, thermotherapy (hydrocollator packs) Planned therapy interventions: abdominal trunk stabilization, functional ROM exercises, manual therapy, therapeutic activities, gait training, transfer training, balance/weight-bearing training, endurance training, home exercise program, neuromuscular re-education Frequency: 1 x/week, 2 x/week Duration in weeks: 6 weeks Discussed with: patient Future Treatment Plan: bike/Octane; standing LE strengthening; balance training (stair taps, tandem, foam, side steps, etc); Khalida Garcia PT, DPT, COMT documented in this encounter Plan of Treatment [...] Abnormality of gait documented in this encounter Orders Outpatient Referral Count Last Ordered Date Fir st Ordered Date AMB REFERRAL ORDER TO PHYSICAL THERAPY 1 documented in this encounter Care Teams Monitor And Storage Bin Tender Relationship Specialty Start Date End Date Pepper Morgan MD PCP - General 09/16/16 Hank Garibay MD [address] [facility] [address] WARNER Sheridan [address] [place] [address] Surgeon Orthopedic Surgery 03/27/17 Jacky Murry MD [address] [facility] [address] WARNER Sheridan [address] [place] [address] Ophthalmology 03/27/17 Puma Mckenzie MD [address] [facility] [address] WARNER Sher[address] [place] [address] Surgeon Orthopedic Surgery 07/11/19 Neha Jackson, PT Physical Therapist Physical Therapy 12/01/21 Stalin Arauz MD [address] [facility] [address] [place] [address] Consulting Physician Cardiology 12/08/22 Tiffany Rojas PA [address] [facility] [address] [place] [address] Gastroenterology 12/30/22 documented as of this encounter
--- OUTSIDE RECORDS SUMMARY | 2024-06-18 18:53 | XMS_ITS | Encounter Summary ---
Author Organization [facility] Address [address] [facility] [address] [place] [address] Care Team Providers Care Outbound Call Center Representative Name Role Phone Pepper Morgan MD Primary Care Provider + [phone] Hank Garibay MD Unavailable [phone] Jacky Murry MD Unavailable [phone] Puma Mckenzie MD Unavailable [phone] Neha Jackson PT Unavailable Unavailable Stalin Arauz MD Unavailable [phone] Tiffany Rojas Unavailable [phone] Encounter Details Date Type Department Care Team (Late st Contact Info) Description 01/23/2023 Telephone Lerna Piece Dye Worker at [address] [place] [address] Hai Dalton MA Social History [...] attend chur ch or gnosticist services? Never 12/29/2022 Do you belong to [...] on file Legal Sex Female 4:33 AM QA INTERN Gender Identity Not on file Sexual Orientation Not on file Occupation Industry Job Start Date Job End Date retired Not on file Not on file Not on file documented as of this encounter Miscellaneous Notes * Telephone Encounter - Hai Dalton MA - 01/27/2023 3:07 PM CDT Patient called with update. She states that once she stopped the medication the extreme thirst wentaway. However she gained 3 pounds since stopping. Please advise. * Telephone Encounter - Hai Dalton MA - 01/23/2023 12:14 PM CDT advised * Telephone Encounter - Hai Dalton MA - 01/23/2023 10:27 AM CDT Patient called stating she been extremely thirsty since starting Jardiance and is concerned about an increased water intake due to past fluid retention issues. Please advise documented in this encounter Plan [...] on filedocumented in this encounter Care Teams Outbound Call Center Representative Relationship Specialty Start Date End Date Pepper Morgan MD PCP - General 09/16/16 Hank Garibay MD [address] [facility] [address] WARNER Sheridan [facility] [address] [place] [address] Surgeon Orthopedic Surgery 03/27/17 Jacky Murry MD [address] [facility] [address] WARNER Sheridan [facility] [address] [place] [address] Ophthalmology 03/27/17 Puma Mckenzie MD [address] [place] [address] DR WARNER Sheridan [facility] [address] [place] [address] Surgeon Orthopedic Surgery 07/11/19 Neha Jackson, PT Physical Therapist Physical Therapy 12/01/21 Stalin Arauz MD [address] [facility] [address] [place] [address] Consulting Physician Cardiology 12/08/22 Tiffany Rojas PA [address] [facility] [address] [place] [address] Gastroenterology 12/30/22 documented as of this encounter
--- OUTSIDE RECORDS SUMMARY | 2024-06-18 18:53 | XMS_ITS | Encounter Summary ---
Author Organization [facility] Address [address] [place] [address] Care Team Providers Care Production Mechanic Tin Cans Name Role Phone Pepper Morgan MD Primary Care Provider + [phone] Hank Garibay MD Unavailable [phone] Jacky Murry MD Unavailable [phone] Puma Mckenzie MD Unavailable [phone] Neha Jackson PT Unavailable Unavailable Stalin Arauz MD Unavailable [phone] Tiffany Rojas Unavailable [phone] Encounter Details Date Type Department Care Team (Late st Contact Info) Description 01/16/2023 8:45 AM CDT Lab [address] [address] 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 Social History Tobacco Use Types [...] often do you attend chur ch or confucianist services? 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 73 m2 [facility] ([place]) Comment: [...] interpretive data was last reviewed 2021. Blood 01/16/2023 8:54 AM CDT 01/16/2023 9:19 AM CDT us Maude Harris NP LAB BLOOD ORDERABLES Fi nal Result [facility] ([place]) [address] [facility] [place] [address] * (ABNORMAL) Basic metabolic panel (01/16/2023 8:54 AM CDT) Sodium 132(L) 135 - 145 mmol/L [facility] ([place]) Potassium, pl 3.4 3.3 - 4.9 mmol/L [facility] ([place]) Chloride 90(L) 97 - 110 mmol/L [facility] ([place]) CO2 30 22 - 32 mmol/L [facility] ([place]) Anion gap 12 2 - 15 mmol/L [facility] ([place]) BUN 71(H) 6 - 25 mg/dL [facility] ([place]) Creatinine 1.45(H) 0.60 - 1.10 mg/dL [facility] ([place]) Glucose 96 70 - 199 mg/dL [facility] ([place]) Comment: Interpretive Data Fasting [...] Calcium 9.8 8.5 - 10.3 mg/dL [facility] ([place]) Blood 01/16/2023 8:54 AM CDT 01/16/2023 9:19 AM CDT us Maude Harris BILL COLLECTOR LAB BLOOD ORDERABLES nal Result [facility] ([place]) [address] [facility] [place] [address] * (ABNORMAL) Pro B-type natriuretic peptide (01/16/2023 [...] 8:54 AM CDT 01/16/2023 9:18 AM CDT Maude Harris BILL COLLECTOR LAB BLOOD ORDERABLES nal Result [facility] ([place]) [address] [facility] [place] [address] documented in this encounter Visit Diagnoses Diagnosis 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 Essential hypertension, benign documented in this encounter Care Teams Production Mechanic Tin Cans Relationship Specialty Start Date End Date Pepper Morgan MD PCP - General 09/16/16 Hank Garibay MD [address] [facility] [address] WARN[address] Sher[address] [place] [address] Surgeon Orthopedic Surgery 03/27/17 Jacky Murry MD [address] [facility] [address] WARNER Sher[address] [place] [address] Ophthalmology 03/27/17 Puma Mckenzie MD [address] [facility] [address] WARNER Sher[address] [place] [address] Surgeon Orthopedic Surgery 07/11/19 Neha Jackson, PT Physical Therapist Physical Therapy 12/01/21 Stalin Arauz MD [address] [facility] [address] [place] [address] Consulting Physician Cardiology 12/08/22 Tiffany Rojas PA [address] [facility] [address] [place] [address] Gastroenterology 12/30/22 documented as of this encounter
--- OUTSIDE RECORDS SUMMARY | 2024-06-18 18:53 | XMS_ITS | Encounter Summary ---
Author Organization [facility] Address [address] [place] [address] Care Team Providers Care Hammersmith Helper Name Role Phone Pepper Morgan MD Primary Care Provider + [phone] Hank Garibay MD Unavailable [phone] Jacky Murry MD Unavailable [phone] Puma Mckenzie MD Unavailable [phone] Neha Jackson PT Unavailable Unavailable Stalin Arauz MD Unavailable [phone] Tiffany Rojas Unavailable [phone] Encounter Details Date Type Department Care Team (Latest Contact Info) Description 01/14/2023 1:21 PM CDT - 01/14/2023 11:59 PM CDT Hospital Encounter [facility] Discharge Disposition: Discharge to home or self [...] in a longterm (including now)? No 12/29/2022 Comments No Sex and Gender Information Value Date Recorded Sex Assigned at Not on file Legal Sex Female 4:33 AM RETAIL MERCHANDISER Gender Identity Not on file Sexual Orientation [...] shortness of breath 6.7 g 05/10/2022 3 clonazePAM (KlonoPIN) 0.5 mg tablet Take 1 tablet (0.5 mg total) by mouth nightly 30 tablet 5 12/08/2022 3 clopidogreL (PLAVIX) 75 mg tablet Take 1 tablet (75 mg total) by mouth daily 90 tablet 3 06/07/2022 3 felodipine (PLENDIL) 5 mg 24 hr tabletIndications :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 Take 1 tablet (5 mg total) by mouth daily 90 tablet 2 12/08/2022 4 furosemide (LASIX) 40 mg tablet Take 1 tablet (40 mg total) by mouth 2 (two) times a day 3 ondansetron (ZOFRAN) 4 mg tabletIndications :nausea and diarrhea Take 1 tablet (4 mg total) by mouth every 8 (eight) hours as needed for nausea or vomiting 20 tablet 12/16/[address] (PROTONIX) 40 mg EC tabletIndications :Treatment of Non-Bleeding Gastric Disorder Take 1 tablet (40 mg total) by mouth daily 30 tablet 11 12/31/2022 4 polyethylene glycol (MIRALAX) 17 gram packetIndications :constipation Take 1 packet (17 g total) by mouth daily as needed for constipation 4 potassium chloride ER (KLOR-CON) 20 mEq CR tablet Take 2 tablets (40 mEq total) by mouth 2 (two) times a day 120 tablet 11 09/26/2022 3 pramipexole (MIRAPEX) 0.25 mg tabletIndications :Idiopathic Parkinsonism,Rest [...] (two) times a day 180 tablet 3 08/05/2022 3 documented as of this encounter Discharge [...] on filedocumented in this encounter Care Teams Hammersmith Helper Relationship Specialty Start Date End Date Pepper Morgan MD PCP - General 09/16/16 Hank Garibay MD [address] [place] [address] [place] [address] Surgeon Orthopedic Surgery 03/27/17 Jacky Murry MD [address] [facility] [address] [place] [facility] [address] [place] [address] Ophthalmology 03/27/17 Puma Mckenzie MD [address] [facility] [address] WARNER [place] [facility] [address] [place] [address] Surgeon Orthopedic Surgery 07/11/19 Neha Jackson, PT Physical Therapist Physical Therapy 12/01/21 Stalin Arauz MD [address] [facility] [address] [place] [address] Consulting Physician Cardiology 12/08/22 Tiffany Rojas PA [address] [facility] [address] [place] [address] Gastroenterology 12/30/22 documented as of this encounter
--- OUTSIDE RECORDS SUMMARY | 2024-06-18 18:53 | XMS_ITS | Encounter Summary ---
Author Organization [facility] Address [address] [address] Care Team Providers Care Ranch Helper Name Role Phone Pepper Morgan MD Primary Care Provider + [phone] Hank Garibay MD Unavailable [phone] Jacky Murry MD Unavailable [phone] Puma Mckenzie MD Unavailable [phone] Neha Jackson PT Unavailable Unavailable Stalin Arauz MD Unavailable [phone] Tiffany Rojas Unavailable [phone] Reason for Visit * Reason Onset Date Comments Med Refill 01/24/2023 Encounter Details Date Type Department Care Team (Late st Contact Info) Description 01/24/2023 Telephone [facility] [address] [facility] [place] [id number] Pepper Morgan MD [address] [place] [address] Med Refill Social History Tobacco Use Types [...] on file Legal Sex Female 4:33 AM SEWER 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 Arauz he sent 90 day + 3 additional refills back in July. I have called and spoke with patient she will contact his office. I did let patient she she has multiple refills on all her medications. [employer] manager membership * Telephone Encounter - Vickie Araujo - 01/24/2023 8:21 AM CDT Patient calling she is needing refills on spirolactone and she needs these this week. Also she is needing the other ones also and there is to many to list. She usually gets notices on these. [facility]. She needs the spironolactone 25mg and she cannot wait on those. [facility] [place] cbn: [phone] documented in this encounter Plan of Treatment [...] on filedocumented in this encounter Care Teams Ranch Helper Relationship Specialty Start Date End Date Pepper Morgan MD PCP - General 09/16/16 Hank Garibay MD [address] [facility] [address] [place] [place] [facility] [address] [place] [address] Surgeon Orthopedic Surgery 03/27/17 Jacky Murry MD [address] [facility] [address] [place] [place] [facility] [address] [place] [address] Ophthalmology 03/27/17 Puma Mckenzie MD [address] [facility] [address] [place] [facility] [address] [place] [address] Surgeon Orthopedic Surgery 07/11/19 Neha Jackson, PT Physical Therapist Physical Therapy 12/01/21 Stalin Arauz MD [address] [facility] [address] [place] [address] Consulting Physician Cardiology 12/08/22 Tiffany Rojas PA [address] [facility] [address] [place] [address] Gastroenterology 12/30/22 documented as of this encounter
--- OUTSIDE RECORDS SUMMARY | 2024-06-18 18:53 | XMS_ITS | Encounter Summary ---
Author Organization [facility] Address [address] [place] [address] Care Team Providers Care Line Up Worker Name Role Phone Pepper Morgan MD Primary Care Provider + [phone] Hank Garibay MD Unavailable [phone] Jacky Murry MD Unavailable [phone] Puma Mckenzie MD Unavailable [phone] Neha Jackson PT Unavailable Unavailable Stalin Arauz MD Unavailable [phone] Tiffany Rojas PA Unavailable [phone] Reason for Visit * Reason Comments PT Treatment * Physical Therapy (Routine) - Closed Specialty Diagnoses / Procedures Referred By Olga t Referred To Contact Physical Therapy Diagnoses Gait disturbance Klaus Deshpande MD [address] [place] [address] [address] [place] [address] Phone: tel: fax: External Order Referral ID Status Reason Start Date Expiration Date V isits Requested Visits Authorized [id number] Closed Specialty Services Required 11/11/2022 12/11/2023 24 24 Encounter Details Date Type Department Care Team (Late st Contact Info) Description 01/30/2023 10:00 AM CDT Therapy [facility] [place] [address] Neha Jackson, KEVIN Gait disturbance (Primary Dx) [...] on file 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 She reports that she has been doing some of her exercises and wants to be able to lift her leg better. She has been trying to walk more. Pain: Denies pain. Objective: Reviewed HEP for [...] LE 2 Sidestepping HEP includes: Access Code: [email or web address] - Seated March - 1-2 x daily [...] home 4+x/week, working up your tolerance Assessment: Initiated B LE standing exercises, recumbent stepper, and balance exercises today. She tolerates all exercises well, requiring SBA for all activity for safety. She does not move with muchconfidence. She does fatigue easily and require rest breaks. Plan: Continue PT POC, progressing as tolerated. Start Time: 1000 End Time: 1040 Neha Jackson PT, DPT documented in this [...] gait documented in this encounter Care Teams Line Up Worker Relationship Specialty Start Date End Date Pepper Morgan MD PCP - General 09/16/16 Hank Garibay MD [address] [facility] [address] [place] [facility] [address] [place] [address] Surgeon Orthopedic Surgery 03/27/17 Jacky Murry MD [address] [facility] [address] [place] [facility] [address] [place] [address] Ophthalmology 03/27/17 Puma Mckenzie MD [address] [facility] [address] [place] [facility] [address] [place] [address] Surgeon Orthopedic Surgery 07/11/19 Neha Jackson, PT Physical Therapist Physical Therapy 12/01/21 Stalin Arauz MD [address] [facility] [address] [place] [address] Consulting Physician Cardiology 12/08/22 Tiffany Rojas PA [address] [facility] [address] [place] [address] Gastroenterology 12/30/22 documented as of this encounter
--- OUTSIDE RECORDS SUMMARY | 2024-06-18 18:53 | XMS_ITS | Encounter Summary ---
Author Organization [facility] Address [address] [facility] [address] [place] [address] Care Team Providers Care Director [place] Name Role Phone Pepper Morgan MD Primary Care Provider Hank Garibay MD Unavailable [phone] Jacky Murry MD Unavailable [phone] Puma Mckenzie MD Unavailable [phone] Neha Jackson PT Unavailable Unavailable Stalin Arauz MD Unavailable [phone] Tiffany Rojas PA Unavailable [phone] Encounter Details Date Type Department Care Team (Late st Contact Info) Description 01/30/2023 Orders Only [facility] [address] [facility] [address] [place] [address] Klaus Deshpande MD [address] [place] [address] [address] [place] [address] Social History Tobacco Use Types [...] file 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 Gender Identity Not on file Sexual Orientation Not on file Occupation Industry Job Start Date Job End Date retired Not on file Not on file Not on file documented as of this encounter Ordered Prescriptions Prescription Sig Dispense Quantity Refills Last Filled Start Date End Date gabapentin enacarbil 300 mg tablet extended release Take 300 mg by mouth nightly 90 tablet 01/30/2023 3 documented in this encounter Progress Notes * Klaus Deshpande MD - 01/30/2023 1:05 PM CDT Prescribed Horizant 300 mg qhs documented in this encounter Plan of Treatment [...] filedocumented in this encounter Care Teams Director [place] Relationship Specialty Start Date End Date Pepper Morgan MD PCP - General 09/16/16 Hank Garibay MD [address] [place] [address] [address] [address] Surgeon Orthopedic Surgery 03/27/17 Jacky Murry MD [address] [facility] [address] WARN[address] [place] [facility] [address] [place] [address] Ophthalmology 03/27/17 Puma Mckenzie MD [address] [facility] [address] WARN[address] [place] [facility] [address] [place] [address] Surgeon Orthopedic Surgery 07/11/19 Neha Jackson, PT Physical Therapist Physical Therapy 12/01/21 Stalin Arauz MD [address] [facility] [address] [place] [address] Consulting Physician Cardiology 12/08/22 Tiffany Rojas PA [address] [facility] [address] [place] [address] Gastroenterology 12/30/22 documented as of this encounter
--- OUTSIDE RECORDS SUMMARY | 2024-06-18 18:53 | XMS_ITS | Encounter Summary ---
Author Organization [facility] Address [address] [address] Care Team Providers Care Stained Glass Window Designer Name Role Phone Pepper Morgan MD Primary Care Provider [phone] Hank Garibay MD Unavailable [phone] Jacky Murry MD Unavailable [phone] Puma Mckenzie MD Unavailable [phone] Neha Jackson PT Unavailable Unavailable Stalin Arauz MD Unavailable [phone] Tiffany Rojas Unavailable [phone] Encounter Details Date Type Department Care Team (Late st Contact Info) Description 02/06/2023 Telephone [facility] [address] [place] [address] Sabine Dasilva NP [address] [place] [address] Social History Tobacco Use Types Packs/Day Years [...] on file 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 * Telephone Encounter - Sabine Dasilva NP - 02/06/2023 4:36 PM CDT Patient requesting refill on clonazepam. She is due. Last fill 12/08/22. documented in this encounter Plan of Treatment [...] on filedocumented in this encounter Care Teams Stained Glass Window Designer Relationship Specialty Start Date End Date Pepper Morgan MD PCP - General 09/16/16 Hank Garibay MD [address] [place] [address] [address] WARNER [place] [facility] [address] [place] [address] Surgeon Orthopedic Surgery 03/27/17 Jacky Murry MD [address] [facility] [address] [place] [facility] [address] [place] [address] Ophthalmology 03/27/17 Puma Mckenzie MD [address] [facility] [address] WARN[address] [place] [facility] [address] [place] [address] Surgeon Orthopedic Surgery 07/11/19 Neha Jackson, PT Physical Therapist Physical Therapy 12/01/21 Stalin Arauz MD [address] [facility] [address] [place] [address] Consulting Physician Cardiology 12/08/22 Tiffany Rojas PA [address] [facility] [address] [place] [address] Gastroenterology 12/30/22 documented as of this encounter
--- OUTSIDE RECORDS SUMMARY | 2024-06-18 18:53 | XMS_ITS | Encounter Summary ---
Author Organization [facility] Address [address] [address] Care Team Providers Care Poultry Boner Name Role Phone Pepper Morgan MD Primary Care Provider + [phone] Hank Garibay MD Unavailable [phone] Jacky Murry MD Unavailable [phone] Puma Mckenzie MD Unavailable [phone] Neha Jackson PT Unavailable Unavailable Stalin Arauz MD Unavailable [phone] Tiffany Rojas Unavailable [phone] Reason for Referral * Diagnostic Imaging (Routine) - Closed Specialty Diagnoses / Procedures Referred By Contac t Referred To Contact Diagnoses Peripheral arterial disease (HCC) Procedures [facility] Stalin Arauz MD [address] [place] [address] Phone: tel: fax: [address] [phone] Referral ID Status Reason Start Date Expiration Date Visits Re quested Visits Authorized [id number] Closed 02/07/2023 03/08/2024 1 1 Reason for Visit * Reason Comments Peripheral Artery Disease Encounter Details Date Type Department Care Team (Late st Contact Info) Description 02/07/2023 9:45 AM CDT Office Visit [place] [employer] at [address] [place] [address] Stalin Arauz MD [address] [place] [address] [address] [place] [address] Chronic atrial fibrillation (HCC) (Primary Dx); Chronic heart failure with preserved ejection fraction (CMS/HCC) (HCC); Peripheral arterial disease (HCC); 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; Morbid (severe) obesity due to excess calories (HCC) Social History Tobacco Use Types Packs/Day [...] How often do you attend chur or oriental orthodox services? 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 Gender Identity Not on file Sexual Orientation Not on file Occupation Industry Job Start Date Job End Date retired Not on file Not on file Not on file documented as of this encounter Last Filed Vital Signs Vital Sign Reading Time Taken Comments Blood Pressure 110/77 02/07/2023 9:40 AM CDT Pulse 64 02/07/2023 9:40 AM CDT Temperature - - Respiratory Rate 18 02/07/2023 9:40 AM CDT Oxygen Saturation - - Inhaled Oxygen Concentration - - Weight 84.4 kg (186 lb) 02/07/2023 9:40 AM CDT Height 152.4 cm (5') 02/07/2023 9:40 AM CDT Body Mass Index 36.33 02/07/2023 9:40 AM CDT documented in this encounter Ordered Prescriptions Prescription Sig Dispense Quantity Refills Last Filled Start Date End Date furosemide (LASIX) 20 mg tablet Take 1 tablet (20 mg total) by mouth 2 (two) times a day Take two tablet in am( to make 40 mg) and one tablet in pm 180 tablet 5 02/07/2023 02/09/2023 documented in this encounter Progress Notes * Stalin Arauz MD - 02/07/2023 9:45 AM CDT Cardiology note Reason for Office Visit: Chief Complaint Patient presents with Peripheral Artery Disease History of Present Illness: [...] care visit for prolonged bleeding following minor trauma Review of Systems Constitutional: Positive for malaise/fatigue [...] of nose 09/2008 CHF (congestive heart failure) ([facility]) ([facility]) Cough DVT (deep venous thrombosis) ([facility]) ([facility]) 1976 upper left arm near elbow--- [...] ARTHROPLASTY Left 11/01/2021 Dr. Mckenzie, [facility]. Family History Problem Relation Age of Onset [...] by mouth daily 90 tablet 2 gabapentin enacarbil 300 mg tablet extended release [...] 2 (two) times a day 90tablet 3 albuterol HFA (Proventil HFA) 90 mcg/actuation inhaler Inhale 2 puffs every 6 (six) hours as neededfor wheezing or shortness of breath (Patient not taking: Reported on 01/09/2023) 6.7 g 0 No current facility-administered medications for this visit. Vitals BP 110/77 (BP Location: Right arm, Patient Position: Sitting) Pulse 64 Resp 18 Ht 152.4 cm (5') Wt 84.4 kg (186 lb) LMP (LMP Unknown) BMI 36.33 kg/m?? Vitals: 02/07/23 0940 BP: 110/77 Pulse: 64 Resp: 18 Wt Readings from Last 3 Encounters: 02/07/23 84.4 kg (186 lb) 02/06/23 83.9 kg (185 lb) 01/09/23 84.8 kg (187 lb) Body mass index is 36.33 kg/m??. Physical Exam Constitutional: General: She is [...] 12/30/2022 Lab Results Component Value Date SODIUM 132 (L) 01/16/2023 POTASSIUM 3.4 01/16/2023 CHLORIDE 90 (L) 01/16/2023 CO2 30 01/16/2023 ANIONGAP 12 01/16/2023 CK 114 11/09/2021 GLUCOSEUR Negative 10/25/2021 No results found for: BNP Lab Results Component Value Date SODIUM 132 (L) 01/16/2023 SODIUM 140 01/06/2023 SODIUM 134 (L) 12/30/2022 POTASSIUM 3.4 01/16/2023 POTASSIUM 5.3 (H) 01/06/2023 POTASSIUM 3.6 12/30/2022 CHLORIDE 90 (L) 01/16/2023 CHLORIDE 101 01/06/2023 CHLORIDE 96 (L) 12/30/2022 CO2 30 01/16/2023 CO2 30 01/06/2023 CO2 26 12/30/2022 BUNSER 71 (H) 01/16/2023 BUNSER 35 (H) 01/06/2023 BUNSER 29 (H) 12/30/2022 CREATININE 1.45 (H) 01/16/2023 CREATININE 1.29 (H) 01/06/2023 CREATININE 1.45 (H) 12/30/2022 GFRNAA 35 01/16/2023 GFRNAA 41 01/06/2023 GFRNAA 35 12/30/2022 GLUCOSE 96 01/16/2023 CALCIUM 9.8 01/16/2023 CALCIUM 9.0 01/06/2023 CALCIUM 8.8 12/30/2022 ALBUMIN 2.8 (L) 12/30/2022 ALBUMIN 2.8 (L) 12/29/2022 ALBUMIN 3.5 12/28/2022 PHOS 3.4 12/29/2022 PHOS 3.2 02/14/2017 PHOS 3.9 04/29/2014 Lab Results Component Value Date SODIUM 132 (L) 01/16/2023 POTASSIUM 3.4 01/16/2023 CHLORIDE 90 (L) 01/16/2023 CO2 30 01/16/2023 ANIONGAP 12 01/16/2023 BUNSER 71 (H) 01/16/2023 CREATININE 1.45 (H) 01/16/2023 GLUCOSE 96 01/16/2023 CALCIUM 9.8 01/16/2023 BILITOT 0.2 12/30/2022 PROT 5.8 (L) 12/30/2022 [...] >50%). Ankle-brachial index in June 2022 1. 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 JONATHAN 10/24/2022 1. 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 Her creatinine is 1.45 which is about baseline. Her sodium is 132 which is also close to baseline. Potassium was low 3.4. ProBNP has improved to 2479 Continue same medication regimen. Will stay off Jardiance due to poor tolerance. Meanwhile change Lasix to 40 mg in a.m. and 20 mg in p.m. along with metolazone every other day. Continue Aldactone for potassium sparing. Resume kcl 20 meq per day Continue tight control of blood pressure and cholesterol. Continue low-salt diet, and weight reduction. Advised water restriction Due to excessive bruising, stop plavix, cont Xarelto , add low dose ASA She is going to call back with weight and progress report later in the week, may need to increase metolazone BMP/ BNP in 2-3 weeks Baseline weight 181 lbs, now 183 lbs at home. RTC in 6 months with JONATHAN Diagnoses and all orders for this visit: Chronic atrial fibrillation (HCC) (Primary) Chronic heart failure with preserved ejection fraction (CMS/HCC) (HCC) Peripheral arterial disease (HCC) 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 Return in about 6 months (around 08/10/2023). 02/07/2023 9:58 AM Stalin Arauz MD Cc:Pepper Morgan MD documented in this encounter Miscellaneous Notes * Addendum Note - Saadia Rojas - 02/07/2023 9:45 AM CDTAddended by: SAADIA ROJAS on: 02/07/2023 10:08 AM Modules accepted: Orders documented in this [...] as of this encounter Results * US JNOATHAN (08/18/2023 12:30 PM FRUIT CHECKER) Anatomical Region Laterality Modality Vascular N/A Ultrasound 08/18/2023 12:0 9 PM FRUIT CHECKER Narrative 09/06/2023 3:01 PM CDT [address] [place] [address] Ankle Brachial Index Report Patient Name: TESS BENEDICT I ?? : 1935 (87y 8m) ??Gender: F Study Date: 08-18-2023 12:09:00 PM Clinical Athletic Instructor: Order Provider: STALIN ARAUZ Quality: Adequate Ref [...] Procedure Note Stalin Arauz MD - 09/06/2023 [place] [address] [place] [address] Ankle Brachial Index Report Patient Name: TESS BENEDICT I : 1935 (87y 8m) Gender: F Study Date: 08-18-2023 12:09:00 PM Clinical Athletic Instructor: Saranya Provider: STALIN ARAUZ Quality: Adequate Ref [...] MD 2023-09-06 15:00:53 CDT Stalin Arauz MD [facility] PROCEDURES Final Result documented in this encounter Visit Diagnoses Diagnosis Chronic atrial fibrillation (HCC)- Primary Atrial fibrillation Chronic heart failure with preserved ejection fraction (CMS/HCC) (HCC) Peripheral arterial disease (HCC) Unspecified peripheral vascular disease 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 Essential hypertension, benign Morbid (severe) obesity due to excess calories (HCC) Peripheral arterial disease (HCC) Unspecified peripheral vascular disease documented in this encounter Discontinued Medications Medication Sig Discontinue Reason Start Date End Da te furosemide (LASIX) 40 mg tablet Take 1 tablet (40 mg total) by mouth 2 (two) times a day Therapy completed 02/07/2023 clopidogreL (PLAVIX) 75 mg tablet Take 1 tablet (75 mg total) by mouth daily Therapy completed 06/07/2022 02/07/2023 documented as of this encounter Care Teams Poultry Boner Relationship Specialty Start Date End Date Pepper Morgan MD PCP - General 09/16/16 Hank Garibay MD [address] [facility] [address] [place] [facility] [address] [place] [address] Surgeon Orthopedic Surgery 03/27/17 Jacky Murry MD [address] [facility] [address] [place] [facility] [address] [place] [address] Ophthalmology 03/27/17 Puma Mckenzie MD [address] [facility] [address] [place] [facility] [address] [place] [address] Surgeon Orthopedic Surgery 07/11/19 Neha Jackson, PT Physical Therapist Physical Therapy 12/01/21 Stalin Arauz MD [address] [facility] [address] [place] [address] Consulting Physician Cardiology 12/08/22 Tiffany Rojas PA [address] [facility] [address] [place] [address] Gastroenterology 12/30/22 documented as of this encounter
--- OUTSIDE RECORDS SUMMARY | 2024-06-18 18:53 | XMS_ITS | Encounter Summary ---
Author Organization [facility] Address [address] [address] Care Team Providers Care Busboy Name Role Phone Pepper Morgan MD Primary Care Provider [phone] Hank Garibay MD Unavailable [phone] Jacky Murry MD Unavailable [phone] Puma Mckenzie MD Unavailable [phone] Neha Jackson PT Unavailable Unavailable Stalin Arauz MD Unavailable [phone] Tiffany Rojas Unavailable [phone] Encounter Details Date Type Department Care Team (Late st Contact Info) Description 02/14/2023 Telephone [facility] [address] [place] [phone] Pepper Morgan MD [address] [place] [address] Social History Tobacco Use Types Packs/Day Years [...] chur ch or latter day services? 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 * Telephone Encounter - Yvette Zapata RN - 02/14/2023 3:31 PM CDT LM for pt to call back. Needs AN/SYQ 13 NAV/C2 OPERATOR appt to discuss. * Telephone Encounter - Eri Owens - 02/14/2023 12:04 PM CDT Pt wants to know if would prescribe Gabapentin for her restless legs. Cbn#[phone] patient [facility] [place] documented in this encounter Plan of Treatment [...] on filedocumented in this encounter Care Teams Busboy Relationship Specialty Start Date End Date Pepper Morgan MD PCP - General 09/16/16 Hank Garibay MD [address] [facility] [address] [place] [facility] [address] [place] [address] Surgeon Orthopedic Surgery 03/27/17 Jacky Murry MD [address] [facility] [address] [place] [facility] [address] [place] [address] Ophthalmology 03/27/17 Puma Mckenzie MD [address] [facility] [address] [place] [facility] [address] [place] [address] Surgeon Orthopedic Surgery 07/11/19 Neha Jackson, PT Physical Therapist Physical Therapy 12/01/21 Stalin Arauz MD [address] [facility] [address] [place] [address] Consulting Physician Cardiology 12/08/22 Tiffany Rojas PA [address] [facility] [address] [place] [address] Gastroenterology 12/30/22 documented as of this encounter
--- OUTSIDE RECORDS SUMMARY | 2024-06-18 18:53 | XMS_ITS | Encounter Summary ---
Author Organization [facility] Address [address] [address] Care Team Providers Care Lehr Stripper Name Role Phone Pepper Morgan MD Primary Care Provider + [phone] Hank Garibay MD Unavailable [phone] Jacky Murry MD Unavailable [phone] Puma Mckenzie MD Unavailable [phone] Neha Jackson PT Unavailable Unavailable Stalin Arauz MD Unavailable [phone] Tiffany Rojas Unavailable [phone] Reason for Visit * Reason Comments Hospital Follow Up Encounter Details Date Type Department Care Team (Late st Contact Info) Description 01/06/2023 1:00 PM CDT Office Visit [facility] [address] [facility] [place] [address] Sabine Dasilva NP [address] [place] [address] Hospital discharge follow-up (Primary Dx); SOBOE (shortness of breath on exertion); Acute colitis Social History Tobacco Use Types Packs/Day Years [...] on file Legal 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 Gender Identity Not on file Sexual Orientation Not on file Occupation Industry Job Start Date Job End Date retired Not on file Not on file Not on file documented as of this encounter Last Filed Vital Signs Vital Sign Reading Time Taken Comments Blood Pressure 144/66 01/06/2023 1:06 PM CDT Pulse 78 01/06/2023 1:06 PM CDT Temperature 36.3 ??C (97.4 ??F) 01/06/2023 1:06 PM CD T Respiratory Rate 16 01/06/2023 1:06 PM CDT Oxygen Saturation 98% 01/06/2023 1:06 PM CDT Inhaled Oxygen Concentration - - Weight 87.5 kg (193 lb) 01/06/2023 1:06 PM CDT Height - - Body Mass Index 37.69 12/28/2022 9:37 PM CDT documented in this encounter Patient Instructions * Patient Instructions* Sabine Dasilva NP - 01/06/2023 1:00 PM CDT Follow 1 month documented in this encounter Progress Notes * Sabine Dasilva NP - 01/06/2023 1:00 PM CDT Images from the original note were not included. Patient ID: Tess Benedict is a 87 y.o. female. Chief Complaint. Chief Complaint Patient presents with Hospital Follow Up HPI. Patient is a 87 y.o. female HPI Tess Benedict returns today for a FOLLOW-UP VISIT AFTER HOSPITALIZATION for colitis. Clerical and administrative information for chart reviewers 1. DATE OF ADMISSION 12/28/22 AND DISCHARGE FROM HOSPITAL 12/30/22 2. Date you made an interactive contact with the patient and/or caregiver 3. Date of the [id number] visit 01/06/23. This required a review of care since our last visit and discussion of her concerns. A review and discussion of Her Chronic Medical Problems, post discharge medications, pre admission active medications, and Medication Refill Management were also completed. Discharge medications and outpatient medications reconciled today in office. INFORMATION ABOUT HOSPITALIZATION Hospital Course: Colitis - infectious vs inflammatory vs ischemic Diarrhea Symptoms present for past 1 month. Stool workup so far unremarkable. Pt was evaluated by GI, declined colonoscopy. Started on Cipro and Flagyl for infectious colitis empirically, will follow stool tests. Continue PPI daily for GI PPX DANNY on CKD 4, hyponatremia- improving Hold diuretics. Patient received 1-1/2 L of IV fluid. Creatinine improving Will give IV NS bolus 500 cc over 3 hours Repeat BMP in am Paroxysmal AFib Rate controlled Pt declined colonoscopy, will resume Xarelto HFpEF, chronic. Hold diuretics in light of DANNY/diarrhea History of peripheral arterial disease. Last intervention was Feb 2022. Resume Plavix Essential tremors. propranolol 20mg bid with holding parameters in light of soft BP Today: Patient did not have new episodes of diarrhea during hospital course. She had couple formed stools since yesterday. No blood in the stool noted. Patient denies any abdominal pain. No nausea or vomiting. Appetite is good and she is tolerating diet well. WBC normal. Hemoglobin stable at 11. Stool workup thus far unremarkable. Pt declined colonoscopy at this time. Case discussed with Tiffany Madrid NP GI, okay to discherge pt from GI standpoint. Pt will continue Cipro and Flagyl for total 7 days. She will continue PPI daily for GI prophylaxis. If diarrhea recurred pt will follow with GI outpatient. Kidney function improving after IV hydration. In light of dehydration/recent DANNY recommended to hold diuretics, repeat BMP in couple of days and if kidney function stable diuretics can be resumed at that time. Pt verbalized understanding. DETAILS REGARDING THIS VISIT: Tess reports feeling fair. Didn't take cipro due to nausea. Very fatigued, no more diarrhea. Called Dr arauz and re-started water pills the day after d/c. Sees cardio Monday. 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 CHF (congestive heart failure) ([facility]) (HCC) Cough DVT (deep venous thrombosis) (CMS/HCC) [...] ARTHROPLASTY Left 11/01/2021 Dr. Mckenzie, [facility]. Allergies Allergen Reactions Celecoxib Anaphylaxis Scopolamine Mental [...] Current Medications: Outpatient Encounter Medications as of 01/06/2023 Medication Sig Dispense Refill albuterol HFA (Proventil [...] total) by mouth daily 90 tablet 2 [] metroNIDAZOLE (FLAGYL) 500 mg tablet Take 1 tablet (500 mg total) by mouth 3 (three) times a day for 6 days 18 tablet 0 ondansetron (ZOFRAN) 4 mg tablet Take 1 tablet (4 mg total) by mouth every 8 (eight) hours as needed for nausea or vomiting (Patient not taking: Reported on 01/09/2023) [address] (PROTONIX) 40 mg [...] taking: Reported on 01/09/2023) 120 tablet 11 pramipexole (MIRAPEX) 0.25 mg tablet [...] (two) times a day 180 tablet 3 [DISCONTINUED] budesonide DR/ER (UCERIS) 9 mg tablet, delayed & ext.release Take 1 tablet (9 mgtotal) by mouth daily 30 tablet 0 [DISCONTINUED] ciprofloxacin (CIPRO) 500 mg tablet Take 1 tablet (500 mg total) by mouth p d driver before breakfast for 6 days 6 tablet 0 [DISCONTINUED] cyclobenzaprine (FLEXERIL) 10 mg tablet Take 1 tablet (10 mg total) by mouth nightlyas needed for muscle spasms 30 tablet 0 No facility-administered encounter medications on file as of 01/06/2023. Allergies Allergies Allergen Reactions Celecoxib Anaphylaxis Scopolamine [...] 03/25/2014, 04/17/2015 Influenza, Unspecified 03/13/2018, 03/19/2021, 03/10/2022 Pfizer SARS-CoV-2 Monovalent Vaccination (12+ Yrs) DOSS-READY TO USE 01/11/2022 Pfizer SARS-CoV-2 Monovalent Vaccination (12+ Yrs) PURPLE 08/15/2020, 09/06/2020, 03/14/2021 Pfizer Sars-Cov-2 Bivalent Vaccination (12+ YRS) 04/01/2022 Pneumococcal Conjugate PCV 13 02/18/2015 Pneumococcal Polysaccharide PPV23 05/17/2002, 04/26/2016 Tdap 05/18/2011, 08/23/2021 ZOSTER Recombinant 12/02/2020, 02/23/2021 Review of Systems Constitutional: Positive for fatigue. Negative for appetite change, chills and fever. HENT: Negative for congestion, ear pain, rhinorrhea, sinus pain, sneezing and sore throat. Eyes: Negative for visual disturbance. Respiratory: Positive for shortness of breath (on exertion). Negative for cough, chest tightness and wheezing. Cardiovascular: Positive for leg swelling. Negative for chest pain and palpitations. Gastrointestinal: Negative for abdominal pain, constipation, diarrhea, nausea and vomiting. Genitourinary: Negative for difficulty urinating. Musculoskeletal: Negative for arthralgias and myalgias. Skin: Negative for color change. Neurological: Positive for weakness. Negative for dizziness, tremors, syncope, numbness and headaches. Psychiatric/Behavioral: Negative for dysphoric mood and sleep disturbance. The patient is not nervous/anxious. BP 144/66 Pulse 78 Temp 36.3 ??C (97.4 ??F) Resp 16 Wt 87.5 kg (193 lb) LMP (LMP Unknown) SpO2 98% BMI 37.69 kg/m?? Physical Exam Vitals and nursing note reviewed. Constitutional: Appearance: Normal appearance. HENT: Head: Normocephalic and atraumatic. Eyes: Conjunctiva/sclera: Conjunctivae normal. Pupils: Pupils are equal, round, and reactive to light. Cardiovascular: Rate and Rhythm: Normal rate and regular rhythm. Pulses: Normal pulses. Heart sounds: Normal heart sounds. No murmur heard. Pulmonary: Effort: Respiratory distress (mild accessory muscle use) present. Breath sounds: Normal breath sounds. No stridor. No wheezing, rhonchi or rales. Chest: Chest wall: No tenderness. Abdominal: General: There is no distension. Palpations: Abdomen is soft. Tenderness: There is no abdominal tenderness. Musculoskeletal: General: Normal range of motion. Cervical back: Normal range of motion. Right lower leg: Edema present. Left lower leg: Edema present. Skin: General: Skin is warm and dry. Neurological: General: No focal deficit present. Mental Status: She is alert and oriented to person, place, and time. Psychiatric: Mood and Affect: Mood normal. Behavior: Behavior normal. Lab on 01/06/2023 Component Date Value Sodium [...] TotalFix stool vial Contact: 12/14/2022 Comment 12/14/2022 Lab on 09/23/2022 Component Date Value NT-proBNP 09/23/2022 2,235 (H) Sodium 09/23/2022 135 Potassium, pl 09/23/2022 3.5 Chloride 09/23/2022 94 (L) CO2 09/23/2022 30 Anion gap 09/23/2022 11 BUN 09/23/2022 55 (H) Creatinine 09/23/2022 1.25 (H) Glucose 09/23/2022 106 Calcium 09/23/2022 9.6 eGFR 09/23/2022 42 Lab on 07/25/2022 Component Date Value NT-proBNP 07/25/2022 2,541 (H) Sodium 07/25/2022 135 Potassium, pl 07/25/2022 2.7 (Critical) Chloride 07/25/2022 89 (L) CO2 07/25/2022 33 (H) Anion gap 07/25/2022 13 BUN 07/25/2022 44 (H) Creatinine 07/25/2022 0.98 Glucose 07/25/2022 103 Calcium 07/25/2022 10.0 eGFR 07/25/2022 57 Assessment & Plan: Diagnoses and all orders for this visit: Hospital discharge follow-up (Primary) Assessment & Plan: See hospital details as noted above. Med reconciliation completed in office today. Edema as noted above, no other acute findings on exam. Will repeat BMP, BnP today. Continue current medication regimen for now. Keep cardiology follow in 3 days. SOBOE (shortness of breath on exertion) Assessment & Plan: Worse after recent hospitalization for colitis because the had stopped her diuretic for several days. Edema as noted above, lungs clear. No other acute findings on exam. ECHO from 05/2022 was unremarkable. BnP in September was 2200s. Has follow with cardiology in 3 days. Recheck BMP and Bnp today. Continue current regimen for now. Acute colitis Assessment & Plan: Stool studies in hospital were negative. Never took cipro as rxd because it made her nauseous but she did complete her course of flagyl. Admits diarrhea is gone at present. No acute findings on exam other than edema. Re-check BMP, BnP today. Continue current medication regimen. Return in about 4 weeks (around 02/03/2023) for Recheck. Sabine Dasilva NP Cosigned by Pepper Morgan MD at 01/14/2023 9:31 PM CDT documented in this encounter Miscellaneous Notes * Assessment & Plan Note - Sabine Dasilva NP - 01/11/2023 3:11 PM CDT Associated Problem(s): Acute colitis (Resolved 03/13/2023) Stool studies in hospital were negative. Never took cipro as rxd because it made her nauseous but she did complete her course of flagyl. Admits diarrhea is gone at present. No acute findings on exam other than edema. Re-check BMP, BnP today. Continue current medication regimen. * Assessment & Plan Note - Sabine Dasilva NP - 01/11/2023 3:07 PM CDT Associated Problem(s): Hospital discharge follow-up (Resolved 01/11/2024) See hospital details as noted above. Med reconciliation completed in office today. Edema as noted above, no other acute findings on exam. Will repeat BMP, BnP today. Continue current medication regimen for now. Keep cardiology follow in 3 days. * Assessment & Plan Note - Sabine Dasilva NP - 01/11/2023 3:03 PM CDT Associated Problem(s): Shortness of breath Worse after recent hospitalization for colitis because the had stopped her diuretic for several days. Edema as noted above, lungs clear. No other acute findings on exam. ECHO from 05/2022 was unremarkable. BnP in September was 2200s. Has follow with cardiology in 3 days. Recheck BMP and Bnp today. Continue current regimen for now. documented in this encounter Plan of Treatment [...] as of this encounter Visit Diagnoses Diagnosis Hospital discharge follow-up- Primary Other follow-up examination SOBOE (shortness of breath on exertion) Shortness of breath Acute colitis documented in this encounter Discontinued Medications Medication Sig Discontinue Reason Start Date End Da te budesonide DR/ER (UCERIS) 9 mg tablet, delayed & ext.releaseIndications: Ulcerative Colitis Take 1 tablet (9 mg total) by mouth daily Cost of medication 12/26/2022 01/06/2023 ciprofloxacin (CIPRO) 500 mg tabletIndications:Abdom inal/Pelvic Infection Take 1 tablet (500 mg total) by mouth p d driver before breakfast for 6 days Therapy completed 12/31/2022 01/06/2023 documented as of this encounter Care Teams Lehr Stripper Relationship Specialty Start Date End Date Pepper Morgan MD PCP - General 09/16/16 Hank Garibay MD [address] [place] [address] Surgeon Orthopedic Surgery 03/27/17 Jacky Murry MD [address] [place] [address] Ophthalmology 03/27/17 Puma Mckenzie MD [address] [facility] [place] [address] Surgeon Orthopedic Surgery 07/11/19 Neha Jackson, PT Physical Therapist Physical Therapy 12/01/21 Stalin Arauz MD [address] [facility] [place] [address] Consulting Physician Cardiology 12/08/22 Tiffany Rojas, PA [address] [facility] [place] [address] Gastroenterology 12/30/22 documented as of this encounter
--- OUTSIDE RECORDS SUMMARY | 2024-06-18 18:54 | XMS_ITS | Encounter Summary ---
Author Organization [facility] Address [address] [place] [address] Care Team Providers Care Violin Maker Hand Name Role Phone Pepper Morgan MD Primary Care Provider + [phone] Hank Garibay MD Unavailable [phone] Jacky Murry MD Unavailable [phone] Puma Mckenzie MD Unavailable [phone] Neha Jackson PT Unavailable Unavailable Stalin Arauz MD Unavailable [phone] Emily Rojas Unavailable [phone] Reason for Visit * Reason Comments Diarrhea * Auth/Cert (Routine) Specialty Diagnoses / Procedures Referred By Contac t Referred To Contact Diagnoses Dehydration Other fatigue Diarrhea, unspecified type Procedures NA Referral ID Status Reason Start Date Expiration Date Visits Re quested Visits Authorized [id number] 1 1 Encounter Details Date Type Department Care Team (Latest Contact Info) Description 12/28/2022 4:19 PM CDT - 12/30/2022 11:56 AM CDT Hospital Encounter [facility] [address] [place] [address] Hank Moulton MD [address] [place] [address] [place] [address] Ondina Blanco MD [address] [place] [address] [place] [address] Chaya Kiser MD [address] [facility] [place] [address] Diarrhea, unspecified type (Primary Dx); Other fatigue; Dehydration; DANNY (acute kidney injury) (CMS/HCC) ([facility]) Discharge Disposition: Discharge to home or self [...] on file 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 Gender Identity Not on file Sexual Orientation Not on file Occupation Industry Job Start Date Job End Date retired Not on file Not on file Not on file documented as of this encounter Last Filed Vital Signs Vital Sign Reading Time Taken Comments Blood Pressure 109/55 12/30/2022 8:05 AM CDT Pulse 64 12/30/2022 8:05 AM CDT Temperature 36.2 ??C (97.2 ??F) 12/30/2022 8:05 AM CD T Respiratory Rate 16 12/30/2022 8:05 AM CDT Oxygen Saturation 93% 12/30/2022 8:05 AM CDT Inhaled Oxygen Concentration - - Weight 86.9 kg (191 lb 9.3 oz) 12/28/2022 9:37 P M CDT Height 152.4 cm (5') 12/28/2022 9:37 PM CDT Body Mass Index 37.42 12/28/2022 9:37 PM CDT documented in this encounter Discharge Summaries * Chaya Kiser MD - 12/30/2022 11:56 AM CDT Inpatient Discharge Summary Patient Name - Tess Benedict Patient Age - 87 yrs Patient - [id number] [facility] - [id number] Document Creation Date: 12/30/2022 Admitting Provider, : Ondina Blanco MD Discharge Provider, MD: No att. providers found Primary Care Physician at Discharge: Pepper Morgan MD [phone] Admission Date: 12/28/2022 Discharge Date/time: Admission Location: [facility] LOS - LOS: 2 days DETAILS OF HOSPITAL STAY Hospital Problems/Diagnoses Principal Problem: Diarrhea, unspecified type Active Problems: Atrial fibrillation (CMS/HCC) (HCC) Peripheral arterial disease (HCC) Chronic heart failure with preserved ejection fraction (CMS/HCC) (HCC) Acute colitis Reason for Hospitalization: This is a 87 y.o. female presented to the ED yesterday with concern of diarrhea and abdominal pain.She was recently evaluated in the ED 12/22 for the same symptoms. At that time a CT of the abdomen and pelvis was performed which noted findings consistent with colitis. She was discharged home on p.o.antibiotics. States that she did not take this medication to completion because it made her diarrhea worse. She states that she has been experiencing diarrhea for the past month. She admits to associated lower abdominal cramping prior to having a bowel movement, and the pain improves after defecation. She denies any melena or hematochezia. Denies any upper GI symptoms, including nausea, vomiting, epigastric abdominal pain, heartburn, reflux, dysphagia. She denies recent unintentional weight loss. She is afebrile. Hospital Course: Colitis - infectious vs inflammatory [...] colonoscopy at this time. Case discussed with Emily Madrid NP GI, okay to discherge pt [...] resumed at that time. Pt verbalized understanding. Discharge Details Physical Exam at Discharge: Discharge Condition: Pulse: 64 Resp: 16 BP: 109/55 Temp: 36.2 ??C (97.2 ??F) Weight: 86.9 kg (191 lb 9.3 oz) Pertinent Exam Findings at Discharge: General: not in acute distress Eyes: EOMI, ESCOBAR, sclare non icteric Neck: supple, no nuchal ridigity, no gross carotid bruits appreciated Pharynx: No gross oral lesion, tongue midline, mucosa moist Lungs CTA Heart: [id number], no significant murmur or gallop Abd: +BS, Non Tender, Non distended, No gross hepatomegaly Lower Ext: No gross edema, pedal artery pulses are palpable bilaterally Neuro: No new deficits appreciated Musculoskeletal: no gross joint erythema, edema, tenderness Skin: No new change Discharge Disposition: Discharge to home or self care Code Status at Discharge: Prior Active Issues & Recommended Plan for Follow-up: Allergies: Celecoxib, Scopolamine, Sulfa (sulfonamide antibiotics), Amlodipine, Lisinopril, Trazodone, Cymbalta [duloxetine], and Sinemet [carbidopa-levodopa] Discharge Medications: Your medication list START taking these medications Instructions Last Dose Given Next Dose Due ciprofloxacin 500 mg tablet Commonly known as: CIPRO Start taking on: December 31, 2022 Notes to patient: infection Take 1 tablet (500 mg total) 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 Continue taking this medication, and follow the directions you see here. Notes to patient: anxiety Take 1 tablet (0.5 mg total) by mouth nightly pantoprazole DR 40 mg EC tablet Commonly known as: PROTONIX Start taking on: December 31, 2022 What changed: medication strength how much to take additional instructions Notes to patient: stomach Take 1 tablet (40 mg total) by mouth daily CONTINUE taking these medications Instructions Last Dose Given Next Dose Due albuterol HFA 90 mcg/actuation inhaler Commonly known as: Proventil HFA Inhale 2 puffs every 6 (six) hours as needed for wheezing or shortness of breath budesonide DR/ER 9 mg tablet, delayed & ext.release Commonly known as: UCERIS Notes to patient: colitis Take 1 tablet (9 mg total) by mouth daily cetirizine 10 mg tablet Commonly known as: ZyrTEC Notes to patient: allergies Take 1 tablet (10 mg total) by mouth nightly cholecalciferol 2000 unit tablet Commonly known as: VITAMIN D-3 Notes to patient: supplement Take 1 tablet (2,000 Units total) by mouth daily clopidogreL 75 mg tablet Commonly known as: PLAVIX Notes to patient: Blood thinner Take 1 tablet (75 mg total) by mouth daily felodipine 5 mg 24 hr tablet Doctor's comments: Intolerant to all other calcium channel blockers must have Filodipine Commonly known as: PLENDIL Notes to patient: Blood pressure Take 1 tablet (5 mg total) by mouth daily ondansetron 4 mg tablet Commonly known as: ZOFRAN Take 1 tablet (4 mg total) by mouth every 8 (eight) hours as needed for nausea or vomiting polyethylene glycol 17 gram packet Commonly known as: MIRALAX Take 1 packet (17 g total) by mouth daily as needed for constipation potassium chloride ER 20 mEq CR tablet Commonly known as: KLOR-CON Notes to patient: Potassium replacement Take 2 tablets (40 mEq total) by mouth 2 (two) times a day pramipexole 0.25 mg tablet Doctor's comments: Note dosage change December 08, 2022 Commonly known as: MIRAPEX Notes to patient: Restless leg syndrome Take 1 tablet (0.25 mg total) by mouth 2 (two) times a day propranoloL 20 mg tablet Commonly known as: INDERAL Take 1 tablet (20 mg total) by mouth 2 (two) times a day as needed (Tremor) rivaroxaban 20 mg tablet Doctor's comments: Please put on file, she will come when needed. 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 [place], [place] - [address] [facility] [address] [facility] [address], [facility] [id number] ciprofloxacin 500 mg tablet metroNIDAZOLE [address] 40 mg EC tablet Time Spent in Discharge Process: I have spent 35 minutes on discharge planning activities. Test Results Pending at Discharge (If Blank, None Found): Operative Procedures Performed (If Blank, None Found): Outpatient Follow-Up: Future Appointments Date Time Provider Department Center 01/06/2023 1:00 PM Sabine Dasilva NP [facility] PSA 02/07/2023 9:45 AM Stalin Arauz MD [facility] 122 PSA 07/13/2023 9:20 AM Pepper Morgan MD [facility] PSA Contact Information for Follow-ups Emily Rojas PA Specialty: Gastroenterology [address] [facility] [address] [place] [address] [place] [id number] Next Steps: Follow up Questions: To provider: EMILY ROJAS Please schedule an appointment with the following provider(s): Emily Rojas PA [address] [facility] [place] [address] ANCILLARY INFORMATION Other Procedures & Diagnostic Tests: ECG 12 lead Result Date: 12/29/2022 Vent Rate: 70 bpm RR Interval: 854 msec RI Interval: 0 msec QRS Duration: 82 msec QT Interval: 368 msec QTC Interval: 388 msec P-R-T [place]: 0 - 78 - 38 degrees ATRIAL FIBRILLATION ABNORMAL RHYTHM ECG No change from prior EKG Electronically Signed By: Stalin Arauz MD XR Chest 1 View Result Date: 12/29/2022 EXAM DESCRIPTION: XR CHEST 1 VIEW REASON FOR STUDY: shortness of breath SOB Tonight. TECHNIQUE: Portable upright AP view of the chest. COMPARISON: 05/05/2022 FINDINGS: LUNGS AND PLEURA: No focal opacity, large effusion, or pneumothorax identified. HEART/MEDIASTINUM: Trachea midline. Cardiac silhouette normal in size. Mediastinal contours appear normal. BONES: Shoulder arthritis. CHEST WALL: Unremarkable. UPPER ABDOMEN: Unremarkable. IMPRESSION: No acute abnormality identified. THIS IS AN ELECTRONICALLY VERIFIED FINAL REPORT 12/29/2022 12:01 AM - Electronically signed by Bird Paz M.D. AR: ADIS Report ID: [id number] Reading Location: [place] [address] Recent Labs: Recent Labs Lab Units 12/30/22 0628 12/29/22 0632 12/28/22 1630 WBC K/cumm 6.4 6.1 8.4 HEMOGLOBIN g/dL 11.5* 11.4* 13.2 HEMATOCRIT % 35.6 35.3* 40.8 PLATELETS K/cumm 265 252 318 Recent Labs Lab Units 12/30/22 0628 12/29/22 0632 12/28/22 1630 WBC K/cumm 6.4 6.1 8.4 HEMOGLOBIN g/dL 11.5* 11.4* 13.2 HEMATOCRIT % 35.6 35.3* 40.8 PLATELETS K/cumm 265 252 318 NEUTROS PCT % 69.8 68.0 76.0 LYMPHS PCT % 13.1 12.9 9.3 MONOS PCT % 11.8 12.9 10.7 EOS PCT % 3.9 4.4 2.7 Recent Labs Lab Units 12/30/2262712/29/2281512/29/2263112/28/22 1630 SODIUM mmol/L 134* -- 133* 130* POTASSIUM PLASMA mmol/L 3.6 -- 3.6 4.9 CHLORIDE mmol/L 96* -- 95* 91* CO2 mmol/L 26 -- 26 27 BUN SERUM mg/dL 29* -- 39* 44* CREATININE mg/dL 1.45* -- 1.85* 2.12* [id number] mL/min/1.73 m2 35 -- 26 22 GLUCOSE mg/dL 101 -- 80 89 POC GLUCOSE MONITOR -- < > -- -- CALCIUM mg/dL 8.8 -- 8.8 9.7 ALBUMIN g/dL 2.8* -- 2.8* 3.5 PHOSPHORUS PLASMA mg/dL -- -- 3.4 -- < > = values in this interval not displayed. Recent Labs Lab Units 12/30/2262712/29/2281512/29/2263112/28/22 1630 SODIUM mmol/L 134* -- 133* 130* POTASSIUM PLASMA mmol/L 3.6 -- 3.6 4.9 CHLORIDE mmol/L 96* -- 95* 91* CO2 mmol/L 26 -- 26 27 ANIONGAP mmol/L 12 -- 12 13 GLUCOSE mg/dL 101 -- 80 89 POC GLUCOSE MONITOR mg/dL -- 75 -- -- BUN SERUM mg/dL 29* -- 39* 44* CREATININE mg/dL 1.45* -- 1.85* 2.12* CALCIUM mg/dL 8.8 -- 8.8 9.7 ALBUMIN g/dL 2.8* -- 2.8* 3.5 ALK PHOS Units/L 86 -- -- 107 ALT Units/L 6* -- -- 9 AST Units/L 11 -- -- 14 BILIRUBIN TOTAL mg/dL 0.2 -- -- 0.4 Recent Labs Lab Units 12/30/2262712/28/22 1630 ALK PHOS Units/L 86 107 BILIRUBIN TOTAL mg/dL 0.2 0.4 TOTAL PROTEIN g/dL 5.8* 6.9 ALT Units/L 6* 9 AST Units/L 11 14 Recent Labs Lab Units 12/29/22 0632 12/28/22 1630 MAGNESIUM mg/dL 1.6 1.8 Lab Results Component Value Date GLUCOSE 101 12/30/2022 GLUCOSE 75 12/29/2022 GLUCOSE 80 12/29/2022 Implant: Implants Type Not Specified [employer] [id number] Leighton 52mm Sector Hip Shell Acetabular Gription Sterile Latex Free - [id number] - Implanted (Right) Hip Inventory item: [employer] Leighton 52mm Sector Hip Shell Acetabular Gription Sterile Latex Free [id number] Model/Cat number: [id number] Tours Captain: [employer] Lot number: [id number] As of 07/10/2019 Status: Implanted [employer] [id number] Leighton 52mm 36mm Hip Neutral Liner Acetabular Altrx Sterile Latex Free - [id number] - Implanted (Right) Hip Inventory item: [employer] Leighton 52mm 36mm Hip Neutral Liner Acetabular Altrx Sterile Latex Free [id number] Model/Cat number: [id number] Tours Captain: [employer] Lot number: [id number] As of 07/10/2019 Status: Implanted [employer] 1217-25-500 Leighton 6.5mm 25mm Acetabular Cancellous Screw Bone Sterile - [id number] - Implanted (Right) Hip Inventory item: [employer] Leighton 6.5mm 25mm Acetabular Cancellous Screw Bone [id number] Model/Cat number: [id number] Tours Captain: [employer] Lot number: [id number] As of 07/10/2019 Status: Implanted [employer] [id number] Articul/Sascha 36mm Cementless Hip +1.5mm 12/14 Taper Head Femoral Latex Free - [id number] - Implanted (Right) Hip Inventory item: [employer] Articul/sascha 36mm Cementless Hip +1.5mm 12/14 Taper Head Femoral Latex Free [id number] Model/Cat number: [id number] Tours Captain: [employer] Lot number: [id number] As of 07/10/2019 Status: Implanted [employer] [id number] Actis Collared Hip 12/14 6 Standard Offset Stem Femoral - [id number] - Implanted (Right) Hip Inventory item: [employer] Actis Collared Hip /14 6 Standard Offset Stem Femoral [id number] Model/Cat number: [id number] Tours Captain: [employer] Lot number: [id number] As of 07/10/2019 Status: Implanted [employer] [id number] Leighton 52mm 36mm Hip Neutral Liner Acetabular Altrx Sterile Latex Free - [id number] - Implanted (Left) Hip Inventory item: [employer] Leighton 52mm 36mm Hip Neutral Liner Acetabular Altrx Sterile Latex Free [id number] Model/Cat number: [id number] Tours Captain: [employer] Lot number: [id number] Size: 38mm As of 11/01/2021 Status: Implanted [employer] Leighton 52mm Sector Hip Shell Acetabular Gription Sterile Latex Free [id number] - [id number] - Implanted (Left) Hip Inventory item: [employer] Leighton 52mm Sector Hip Shell Acetabular Gription Sterile Latex Free [id number] Model/Cat number: [id number] Tours Captain: [employer] Lot number: [id number] Size: 52mm Device identifier: [id number] Device identifier type: [id number] As of 11/01/2021 Status: Implanted [employer] [id number] Actis Collar Hip 7 High Offset Stem Femoral - [id number] - Implanted (Left) Hip Inventory item: [employer] Actis Collar Hip 7 High Offset Stem Femoral [id number] Model/Cat number: [id number] Tours Captain: [employer] Lot number: [id number] Size: 7 Device identifier: [id number] Device identifier type: [id number] As of 11/01/2021 Status: Implanted [employer] Articul/Sascha 36mm Cementless Hip +1.5mm 12/14 Taper Head Femoral Latex Free [id number] - [id number] - Implanted (Left) Hip Inventory item: [employer] Articul/sascha 36mm Cementless Hip +1.5mm 12/14 Taper Head Femoral Latex Free [id number] Model/Cat number: [id number] Tours Captain: [employer] Lot number: [id number] Size: 1.5+ As of 11/01/2021 Status: Implanted [employer] Leighton 6.5mm 35mm Acetabular Cancellous Screw Bone Sterile 1217-35-500 - [id number] - Implanted (Left) Hip Inventory item: [employer] Leighton 6.5mm 35mm Acetabular Cancellous Screw Bone [id number] Model/Cat number: [id number] Tours Captain: [employer] Lot number: [id number] Size: [id number] As of 11/01/2021 Status: Implanted [employer] Protege Gps Exprt 9mm .079in 60mm 80cm Otw Delivery System Self [id number] - [id number] - Implanted Inventory item: [employer] Protege Gps Exprt 9mm .079in 60mm 80cm Otw Delivery System Self [id number] Model/Cat number: [id number] Tours Captain: [employer] Lot number: [id number] As of 02/18/2022 Status: Implanted [employer] Angio-Seal Evolution 6fr Vascular Closure [id number] - [id number] - Implanted Inventory item: [employer] ANGIO-SEAL EVOLUTION 6FR VASCULAR CLOSURE [id number] Model/Cat number: [id number] Tours Captain: [employer] Lot number: [id number] As of 02/18/2022 Status: Implanted [employer] Zilver Ptx 6mm 120mm 125cm Drug Elute Otw Delivery System [id number] - [id number] - Implanted Inventory item: [employer] Zilver Ptx 6mm 120mm 125cm Drug Elute Otw Delivery System [id number] Model/Cat number: [id number] Tours Captain: [employer] Lot number: [id number] As of 02/18/2022 Status: Implanted [employer] Zilver Ptx 6mm 100mm 125cm Otw Preload Delivery System Self [id number] - [id number] - Implanted Inventory item: [employer] Zilver Ptx 6mm 100mm 125cm Otw Preload Delivery System Self [id number]/Cat number: [id number] Tours Captain: [employer] Lot number: [id number] As of 02/18/2022 Status: Implanted [employer] Inc Everflex Entrust 8mm 60mm 120cm Self Expand Triaxial Low Profile - [id number] - Implanted Inventory item: [employer] Everflex Entrust 8mm 60mm 120cm self expand triaxial low profile Model/Cat number: [id number] Tours Captain: [employer] Lot number: [id number] As of 02/18/2022 Status: Implanted [employer] Angio-Seal Evolution 6fr Vascular Closure [id number] - [id number] - Implanted Inventory item: [employer] ANGIO-SEAL EVOLUTION 6FR VASCULAR CLOSURE [id number] Model/Cat number: [id number] Tours Captain: [employer] Lot number: [id number] As of 03/24/2022 Status: Implanted General Precautions (If Blank, None Found): Isolation Status: No active isolations Nutritional Status and in-house recommendations: Anticoagulation Indication: INR: No results found for requested labs within last 30 days. Warfarin Administrations (last 168 hours) None Oxygen Status: O2 Therapy for the past 12 hrs: O2 Therapy 12/30/22 0805 None (Room air) Wound Care Instructions Other Instructions Call provider for: Temperature -Temperature greater than 101 degrees F Call provider for: Temperature -Temperature greater than 101 degrees F Call provider for: difficulty breathing or chest pain Call provider for: difficulty breathing or chest pain Call provider for: extreme fatigue Call provider for: extreme fatigue Call provider for: hives Call provider for: hives Call provider for: persistent dizziness or light-headedness Call provider for: persistent dizziness or light-headedness Call provider for: persistent nausea or vomiting Call provider for: persistent nausea or vomiting Call provider for: redness, tenderness, or signs of infection (pain, swelling, redness, odor or green/yellow discharge around incision site) Call provider for: redness, tenderness, or signs of infection (pain, swelling, redness, odor or green/yellow discharge around incision site) Call provider for: severe uncontrolled pain Call provider for: severe uncontrolled pain Call provider for: headache, visual disturbances, weakness and speech changes Call provider for: headache, visual disturbances, weakness and speech changes Active LDAs (If Blank, None Found): Peripheral IV 12/29/22 22 G Anterior;Right;Upper Arm (Active) Placement Date/Time: 12/29/22 1646 Type: Angiocath Size (Gauge): 22 G Location Orientation: Anterior;Right;Upper Location: Arm Site Prep: Chlorhexidine Comfort Measures: Distraction Local Anesthetic:None Technique: Anatomical landmarks Inse... Patient Emergency Contact: Primary Emergency Contact: Florinda Baires, Edwar Immunization Status at Discharge Immunization History Administered Date(s) Administered Influenza, Quad, [...] Tdap 05/18/2011, 08/23/2021 ZOSTER Recombinant 12/02/2020, 02/23/2021 Chaya Kiser MD documented in this encounter Discharge Instructions * Discharge Instr - Diet* Paulette Fonseca, RD - 12/29/2022 8:50 AM CDT Continue to follow a Low Sodium diet and limit sodium intake to less than 2,000mg per day. Avoid foods that are high sources of sodium, such as fast foods, fried/breaded foods, pickled foods, canned goods, deli meats and gravies/sauces. Use alternatives to season foods such as Mrs. LENKA and other he rbs. Additional resources are available online from the [employer] at www.heart.org/en/healthy-living/healthy-eating If poor intakes and/or unintended weight loss occur on discharge follow up with primary care physician. Call [facility] Dietitian's office at [phone] for questions about your diet. If interested in nutrition counseling, ask your doctor for referral and call [phone] to make an appointment. * Attachments The following attachments cannot be sent through Care Everywhere. * Ciprofloxacin (By mouth) (Sri Lankan) * Metronidazole (By mouth) ([place]ankan) documented in this encounter Medications at Time of Discharge cetirizine (ZyrTEC) 10 mg tabletIndications :Angioedema, subsequent encounter Take 1 tablet (10 mg total) by mouth nightly 90 tablet 3 12/08/2022 cholecalciferol (VITAMIN D-3) 2000 unit tablet Take 1 tablet (2,000 Units total) by mouth daily metroNIDAZOLE (FLAGYL) 500 mg tabletIndications :Abdominal/Pelvic Infection Take 1 tablet (500 mg total) by mouth 3 (three) times a day for 6 days 18 tablet 12/30/2022 3 albuterol HFA (Proventil HFA) 90 mcg/actuation inhalerIndication s:Cough Inhale 2 puffs every 6 (six) hours as needed for wheezing or shortness of breath 6.7 g 05/10/[address]/ER (UCERIS) 9 mg tablet, delayed & ext.releaseIndica tions:Ulcerative Colitis Take 1 tablet (9 mg total) by mouth daily 30 tablet 12/26/2022 3 ciprofloxacin (CIPRO) 500 mg tabletIndications :Abdominal/Pelvic Infection Take 1 tablet (500 mg total) 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 before 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 for 6 days 6 tablet 12/31/2022 3 clonazePAM (KlonoPIN) 0.5 mg tablet Take 1 tablet (0.5 mg total) by mouth nightly 30 tablet 5 12/08/2022 3 clopidogreL (PLAVIX) 75 mg tablet Take 1 tablet (75 mg total) by mouth daily 90 tablet 3 06/07/2022 3 felodipine (PLENDIL) 5 mg 24 hr tabletIndications :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 Take 1 tablet (5 mg total) by mouth daily 90 tablet 2 12/08/2022 4 ondansetron (ZOFRAN) 4 mg tabletIndications :nausea and [...] 08/05/2022 3 documented as of this encounter Ordered Prescriptions Prescription Sig Dispense Quantity Refills Last Filled Start Date End Date metroNIDAZOLE (FLAGYL) 500 mg tabletIndications: Abdominal/Pelvic Infection Take 1 tablet (500 mg total) by mouth 3 (three) times a day for 6 days 18 tablet 12/30/2022 3 ciprofloxacin (CIPRO) 500 mg tabletIndications: Abdominal/Pelvic Infection Take 1 tablet (500 mg total) 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 Patient states that her diarrhea has since resolved. RN notes that patient had a few stools yesterday that were hard. No blood in the stool noted. Patient is not havingany abdominal pain. No nausea or vomiting. Appetite is good and she is tolerating diet well. WBC normal. Hemoglobin low but stable at 11.5. Review of Systems Constitutional: Negative for chills, diaphoresis, fever, and unexpected weight change. +activity change HENT: Negative for congestion, drooling, mouth sores, postnasal drip, rhinorrhea, sore throat, trouble swallowing, and voice change. Respiratory: Negative for cough, choking, chest tightness, shortness of breath, wheezing, and stridor. Cardiovascular: Negative for chest pain, palpitations, and leg swelling. Gastrointestinal: See HPI for full review of this system. No heartburn or reflux. No nausea or vomiting. No constipation. No bowel habit changes. No dark, black, or bloody bowel movements. No rectal pain or bleeding. +diarrhea, abdominal cramping - improving Genitourinary: Negative for difficulty urinating, dysuria, frequency, and urgency. Musculoskeletal: Negative for arthralgias and myalgias. Skin: Negative for pallor and rash. Neurological: Negative for dizziness, light-headedness, and headaches. Psychiatric/Behavioral: Negative for decreased concentration, dysphoric mood, and sleep disturbance. The patient is not nervous/anxious. Objective Intake/Output last 3 shifts: I/O last 3 completed shifts: In: 2054 [P.O.:1880; I.V.:175] Out: 200 [Urine:200] Lab/Radiology/Diagnostic Review: Recent Labs Lab Units 12/30/22 0628 12/29/22 0816 12/29/22 0632 12/28/22 1630 WBC K/cumm 6.4 -- 6.1 8.4 HEMOGLOBIN g/dL 11.5* -- 11.4* 13.2 HEMATOCRIT % 35.6 -- 35.3* 40.8 PLATELETS K/cumm 265 -- 252 318 SODIUM mmol/L 134* -- 133* 130* POTASSIUM PLASMA mmol/L 3.6 -- 3.6 4.9 CHLORIDE mmol/L 96* -- 95* 91* CO2 mmol/L 26 -- 26 27 ANIONGAP mmol/L 12 -- 12 13 GLUCOSE mg/dL 101 -- 80 89 POC GLUCOSE MONITOR mg/dL -- 75 -- -- BUN SERUM mg/dL 29* -- 39* 44* CREATININE mg/dL 1.45* -- 1.85* 2.12* CALCIUM mg/dL 8.8 -- 8.8 9.7 ALBUMIN g/dL 2.8* -- 2.8* 3.5 BILIRUBIN TOTAL mg/dL 0.2 -- -- 0.4 ALK PHOS Units/L 86 -- -- 107 ALT Units/L 6* -- -- 9 AST Units/L 11 -- -- 14 Results for orders placed during the hospital encounter of 12/22/22CT Abdomen Pelvis WO ContrastNarrativeEXAM DESCRIPTION: CT ABDOMEN PELVIS WO CONTRASTREASON FOR STUDY: Abdominal infection suspectedTable formatting from the original note was not included. Images from theoriginal note were not included. Pt to ED via POV for diarrhea. Per Pt katerynas had diarrhea for 2 wks. Per Pt she has been medicating with imodium, withno relief. Pt denies srikanth abdominal pain. Pt reports feeling increasinglyweak.TECHNIQUE: CT scan of the abdomen and pelvis performed without intravenous andwithout oral contrast using helical scanning technique. Reconstructedcoronal and sagittal MPR images reviewed. All images stored on PACS. Automatedexposure control was used as a dose optimization technique for thisexamination.COMPARISON: 2REFERENCE: Per ACR white paper recommendations, unless otherwise specified nofollow-up imaging is recommended for incidental renal and adrenal lesions perconsensus recommend ations based on imaging criteria. Further lab evaluationcould be pursued based on clinical findings.FINDINGS:The sensitivity for detection of visceral lesions is diminished without theuse of intravenous contrast.LOWER CHEST: There is mild cardiomegaly. There is no definite evidence ofpericardial effusion. There are atherosclerotic changes of the aorta andvasculature. There is a left common iliac artery stent noted terminating inthe left external iliac artery. There is mild bibasilar subsegmentalatelectasis and scarring. There is a small hiatal hernia.LIVER: The liver is grossly stable in sizeand contour.GALLBLADDER: Surgically absent.BILE DUCTS: No intrahepatic or extrahepatic ductal dilata tion.SPLEEN: The spleen is grossly stable in size and unremarkable.PANCREAS: The pancreas has a grossly stable unenhanced CT appearance.ADRENALS: The right adrenal gland is grossly stable and unremarkable. Thereis stable mild nonspecific nodularity of the left adrenal gland.KIDNEYS/URINARY TRACT: There is no definite unenhanced CT evidence of arenal mass. There is no definite evidence of nephrolithiasis. There is nodefinite evidence of hydronephrosis or hydroureter. The urinary bladder isobscured by metallic artifact bilateral hip arthroplasties. There issuggestion of circumferential mucosal thickening of the urinary bladder.There is suggestion of air within the urinary bladder.GI: There isno definite evidence of bowel obstruction. The appendix is notvisualized, however there are no definite pericecal inflammatory changes tosuggest appendicitis. There are scattered colonic diverticula withoutdefinite evidence of diverticulitis. There is mild mucosal thickening of thedescending colon and sigmoid colon. There are multiple small fat containingventral abdominal wall hernias. There is no definite evidence of free air orfluid in the abdomen and pelvis. There is no definite unenhanced CT evidenceof lymphadenopathy in the abdomen and pelvis.REPRODUCTIVE: There is no definite unenhancedCT evidence of a large ovarianor uterine mass.MUSCULOSKELETAL: There is mild osteopenia. There is aminimal to mildlevoscoliotic curvature of the spine with degenerative changes. There aredegenerative changes bilateral sacroiliac joints. Postsurgical changesbilateral hip arthroplasties are noted.OTHER: No other abnormality.ImpressionNo definite evidence of bowel obstruction.No definite evidence of obstructive uropathy or nephrolithiasis.Circumferential mucosal thickening of the urinary bladder,which may berelated to underdistention versus cystitis. Clinical correlation with urinaryanalysis is recommended as clinically indicated.Suggestion of air within the urinary bladder, which may be related to recentinstrumentation. Correlation with recent procedural history is recommended asclinically indicated.Mild mucosal thickening of the descending colon and sigmoid colon, which maybe related to underdistention versus mild colitis of infectious orinflammatory etiology.Scattered colonic diverticula without definite evidence of diverticulitis.THIS IS AN ELECTRONICALLY VERIFIED FINAL REPORT12/22/2022 2:04 PM- Electronically signed by Rock Jerome D.O.PS: PSD: 12/22/2022 2:04 PMT: 12/22/2022 2:04 PMReport ID: [id number] Location: [id number] Current Medications: Current Facility-Administered Medications: acetaminophen (TYLENOL) tablet 650 mg, 650 mg, oral, Q4H PRN, Ondina Blanco MD, 650 mg at 12/30/22 0404 albuterol 2.5 mg /3 mL (0.083 %) nebulizer solution 2.5 mg, 2.5 mg, nebulization, Q4H PRN (RT), Ondina Blanco MD benzonatate (TESSALON) capsule 100 mg, 100 mg, oral, TID PRN, Ondina Blanco MD bisacodyl EC (DULCOLAX EC) tablet 10 mg, 10 mg, oral, Daily PRN, Ondina Blanco MD cetirizine (ZyrTEC) tablet 5 mg, 5 mg, oral, Nightly, Ondina Blanco MD, 5 mg at 12/29/222134 ciprofloxacin (CIPRO) tablet 500 mg, 500 mg, oral, Daily - 0600, Emily Rojas PA, 500 mg at 12/30/22 0600 clonazePAM (KlonoPIN) tablet 0.5 mg, 0.5 mg, oral, Nightly, Ondina Blanco MD, 0.5 mg at 12/29/222134 clopidogreL (PLAVIX) tablet 75 mg, 75 mg, oral, Daily, Ondina Blanco MD, 75 mg at 907 [Held by Provider] furosemide (LASIX) tablet 40 mg, 40 mg, oral, BID, Ondina Blanco MD magnesium hydroxide (MILK OF MAGNESIA) 80 mg/mL (33.3 mg/mL as elemental magnesium) oral mL, 30 mL, oral, Daily PRN, Ondina Blanco MD [Held by Provider] metOLazone (ZAROXOLYN) tablet 2.5 mg, 2.5 mg, oral, Every other day, Ondina Blanco MD metroNIDAZOLE (FLAGYL) tablet 500 mg, 500 mg, oral, TID, Emily Rojas PA, 500 mg at 12/30/22 0907 mineral oil (FLEET MINERAL OIL) enema 133 mL, 1 enema, rectal, Daily PRN, Ondina Blanco MD ondansetron (ZOFRAN) injection 4 mg, 4 mg, intravenous, Q6H PRN, Ondina Blanco MD pantoprazole DR (PROTONIX) extended release tablet 40 mg, 40 mg, oral, Daily, Ondina Blanco MD, 40 mg at 12/30/22 0907 [Held by Provider] potassium chloride ER (KLOR-CON) extended release tablet 40 mEq, 40 mEq, oral, BID, Ondina Blanco MD pramipexole (MIRAPEX) tablet 0.25 mg, 0.25 mg, oral, BID, Ondina Blanco MD, 0.25 mg at 12/30/22 0908 propranoloL (INDERAL) tablet 20 mg, 20 mg, oral, BID, Chaya Kiser MD, 20 mg at 12/30/22 0907 rivaroxaban (XARELTO) tablet 15 mg, 15 mg, oral, Daily with dinner, Ondina Blanco MD, 15 mg at 12/29/22 1733 sodium chloride 0.9% flush 0.5-20 mL, 0.5-20 mL, intra-catheter, Q8H, Ondina Blanco MD, 10mL at 12/30/22 0600 sodium chloride 0.9% flush 0.5-20 mL, 0.5-20 mL, intra-catheter, PRN, Ondina Blanco MD [Held by Provider] sodium chloride 0.9% infusion, 75 mL/hr, intravenous, Continuous, Hank Moulton MD, Last Rate: 75 mL/hr at 12/28/222121, 75 mL/hr at 12/28/222121 [Held by Provider] spironolactone (ALDACTONE) tablet 25 mg, 25 mg, oral, BID, Ondina Blanco MD Vital signs in last 24 hours: Temp: [36.2 ??C (97.2 ??F)-36.5 ??C (97.7 ??F)] 36.2 ??C (97.2 ??F) Pulse: [64-76] 64 Resp: [16-18] 16 BP: (99-115)/(51-61) 109/55 Physical Exam Constitutional: General: No acute distress. Appearance: Not ill-appearing. HENT: Head: Normocephalic and atraumatic. Mouth/Throat: Mouth: Mucous membranes are moist. Pharynx: Oropharynx is clear. No posterior oropharyngeal erythema. Eyes: General: No scleral icterus. Neck: Thyroid: No thyroid mass or thyromegaly. Trachea: Trachea normal. Cardiovascular: Rate and Rhythm: Normal rate and regular rhythm. Heart sounds: No murmur heard. Appearance: No edema in legs. Pulmonary: Effort: Pulmonary effort is normal. Breath sounds: Normal breath sounds. Abdominal: General: Bowel sounds are normal. Palpations: Abdomen is soft and non-distended. Tenderness: There is no abdominal tenderness. There is no guarding or rebound. Hernia: No hernia is present. Lymphadenopathy: Cervical: No cervical adenopathy. Skin: General: Skin is warm and dry. Coloration: Skin is not jaundiced or pale. Findings: No bruising or rash. Neurological: Mental Status: Pt is alert and oriented to person, place, and time. Psychiatric: Mood and Affect: Mood normal. Behavior: Behavior normal. Gastroenterology Impression/Plan/Recommendations: Colitis - infectious vs inflammatory vs ischemic Diarrhea - improving Intermittent lower abdominal cramping Symptoms for the past 1 month; improved since admission. Stool workup thus far unremarkable. No previous history of colonoscopy, but patient is uninterested at this time; did discuss with patient therisks of not completing a colonoscopy for complete evaluation. Continue Cipro and Flagyl for 7 days. Continue GI soft diet. Daily CBC and CMP. Continue PPI daily for GI prophylaxis. Patient is ok to be D/C from GI standpoint and follow-up with our office outpatient. My collaborating physician is Dr. Delfino Birch-Gastroenterology. Voice recognition software Swing by [employer] was used dictate and transcribe this document. [employer] variances may occur. Despite proofreading, typographical errors may occur. TEO Lord Cosigned by Delfino Birch MD at 12/30/2022 2:29 PM CDT * Anuradha Lofton [facility] - 12/29/2022 3:47 PM CDT Dose of rivaroxaban adjusted per renal protocol for CrCl=15-50 ml/min (CrCl=16 ml/min) Rivaroxaban 20 mg PO daily decreased to 15 mg PO daily per protocol * Chaya Kiser MD - 12/29/2022 3:38 PM CDT General Medicine Daily Progress SUBJECTIVE Chief complaint of diarrhea . Interval History: Pt is feeling better today, denies sob, sitting in chair, appears comfortable. She did not have newepisodes of diarrhea today. Had 1 BM today and stool was formed. Stool workup so far unremarkable. Pt was evaluated by GI, declined colonoscopy. Started on Cipro and Flagyl for infectious colitis empirically, will follow stool tests. Kidney function improving. BP is soft, pt is sleepy this afternoon, will hold BP medications and give IV NS bolus 500 cc over 3 hours. OBJECTIVE Vitals: 24hr Min/Max: Temp Min: 36.2 ??C (97.1 ??F) Max: 36.5 ??C (97.7 ??F) Pulse Min: 69 Max: 93 BP Min: 81/62 Max: 140/73 Resp Min: 13 Max: 31 SpO2 Min: 93 % Max: 100 % Most Recent : Vitals: 12/29/22 1501 BP: 99/54 Pulse: 70 Resp: 18 Temp: 36.5 ??C (97.7 ??F) SpO2: 99% I/O last 2 completed shifts: In: 695 [P.O.:520; I.V.:175] Out: - I/O this shift: In: 240 [P.O.:240] Out: - Physical Exam: General: not in acute distress Eyes: EOMI, ESCOBAR, sclare non icteric Neck: supple, no nuchal ridigity, no gross carotid bruits appreciated Pharynx: No gross oral lesion, tongue midline, mucosa moist Lungs CTA Heart: [id number], no significant murmur or gallop Abd: +BS, Non Tender, Non distended, No gross hepatomegaly Lower Ext: No gross edema, pedal artery pulses are palpable bilaterally Neuro: No new deficits appreciated Musculoskeletal: no gross joint erythema, edema, tenderness Skin: No new change Lab/Current Medication Review: Recent Results (from the past 24 hour(s)) CBC with auto differential Collection Time: 12/28/22 4:30 PM Result Value Ref Range WBC 8.4 3.8 - 9.9 K/cumm Hgb 13.2 11.9 - 15.5 g/dL Hct 40.8 35.6 - 45.5 % Plt 318 150 - 400 K/cumm MPV 8.8 (L) 9.1 - 12.3 fL RBC 4.84 3.90 - 5.20 M/cumm MCV 84.3 81.3 - 96.4 fL MCH 27.3 27.1 - 33.3 pg MCHC 32.4 32.3 - 35.7 g/dL RDW CV 13.7 11.1 - 14.9 % RDW SD 42.4 35.7 - 48.1 fL NRBC abs 0.00 0.00 - 0.01 K/cumm Comprehensive metabolic panel Collection Time: 12/28/22 4:30 PM Result Value Ref Range Sodium 130 (L) 135 - 145 mmol/L Potassium, pl 4.9 3.3 - 4.9 mmol/L Chloride 91 (L) 97 - 110 mmol/L CO2 27 22 - 32 mmol/L Anion gap 13 2 - 15 mmol/L BUN 44 (H) 6 - 25 mg/dL Creatinine 2.12 (H) 0.60 - 1.10 mg/dL Glucose 89 70 - 199 mg/dL Calcium 9.7 8.5 - 10.3 mg/dL Bilirubin, total 0.4 0.1 - 1.2 mg/dL Protein, pl 6.9 6.5 - 8.5 g/dL Albumin 3.5 3.5 - 5.0 g/dL Alk phos 107 40 - 130 Units/L ALT 9 7 - 45 Units/L AST 14 10 - 45 Units/L Magnesium Collection Time: 12/28/22 4:30 PM Result Value Ref Range Magnesium 1.8 1.4 - 2.5 mg/dL Differential, auto Collection Time: 12/28/22 4:30 PM Result Value Ref Range Neutrophil abs 6.4 1.7 - 6.5 K/cumm Imm gran abs 0.1 0.0 - 0.1 K/cumm Lymphocyte abs 0.8 0.8 - 3.3 K/cumm Monocyte abs 0.9 (H) 0.2 - 0.8 K/cumm Eosinophil abs 0.2 0.0 - 0.5 K/cumm Basophil abs 0.0 0.0 - 0.1 K/cumm Neutrophil pct 76.0 % Imm gran pct 0.8 % Lymphocyte pct 9.3 % Monocyte pct 10.7 % Eosinophil pct 2.7 % Basophil pct 0.5 % eGFR Collection Time: 12/28/22 4:30 PM Result Value Ref Range eGFR 22 mL/min/1.73 m2 CRP (acute phase) Collection Time: 12/28/22 11:48 PM Result Value Ref Range CRP 55.4 (H) <=10.0 mg/L Erythrocyte sedimentation rate Collection Time: 12/28/22 11:48 PM Result Value Ref Range Erythrocyte sedimentation rate 26 1 - 30 mm/hr Renal function panel Collection Time: 12/29/22 6:32 AM Result Value Ref Range Sodium 133 (L) 135 - 145 mmol/L Potassium, pl 3.6 3.3 - 4.9 mmol/L Chloride 95 (L) 97 - 110 mmol/L CO2 26 22 - 32 mmol/L Anion gap 12 2 - 15 mmol/L BUN 39 (H) 6 - 25 mg/dL Creatinine 1.85 (H) 0.60 - 1.10 mg/dL Glucose 80 70 - 199 mg/dL Calcium 8.8 8.5 - 10.3 mg/dL Phosphorus, pl 3.4 2.3 - 4.5 mg/dL Albumin 2.8 (L) 3.5 - 5.0 g/dL CBC with auto differential Collection Time: 12/29/22 6:32 AM Result Value Ref Range WBC 6.1 3.8 - 9.9 K/cumm Hgb 11.4 (L) 11.9 - 15.5 g/dL Hct 35.3 (L) 35.6 - 45.5 % Plt 252 150 - 400 K/cumm MPV 9.3 9.1 - 12.3 fL RBC 4.19 3.90 - 5.20 M/cumm MCV 84.2 81.3 - 96.4 fL MCH 27.2 27.1 - 33.3 pg MCHC 32.3 32.3 - 35.7 g/dL RDW CV 14.1 11.1 - 14.9 % RDW SD 43.1 35.7 - 48.1 fL NRBC abs 0.00 0.00 - 0.01 K/cumm Magnesium Collection Time: 12/29/22 6:32 AM Result Value Ref Range Magnesium 1.6 1.4 - 2.5 mg/dL Differential, auto Collection Time: 12/29/22 6:32 AM Result Value Ref Range Neutrophil abs 4.2 1.7 - 6.5 K/cumm Imm gran abs 0.1 0.0 - 0.1 K/cumm Lymphocyte abs 0.8 0.8 - 3.3 K/cumm Monocyte abs 0.8 0.2 - 0.8 K/cumm Eosinophil abs 0.3 0.0 - 0.5 K/cumm Basophil abs 0.1 0.0 - 0.1 K/cumm Neutrophil pct 68.0 % Imm gran pct 1.0 % Lymphocyte pct 12.9 % Monocyte pct 12.9 % Eosinophil pct 4.4 % Basophil pct 0.8 % eGFR Collection Time: 12/29/22 6:32 AM Result Value Ref Range eGFR 26 mL/min/1.73 m2 POCT glucose Collection Time: 12/29/22 8:16 AM Result Value Ref Range Glucose, POC 75 71 - 98 mg/dL ECG 12 lead Result Date: 12/29/2022 Narrative: Vent Rate: 70 bpm RR Interval: 854 msec RI Interval: 0 msec QRS Duration: 82 msec QT Interval: 368 msec QTC Interval: 388 msec P-R-T [place]: 0 - 78 - 38 degrees ATRIAL FIBRILLATION ABNORMAL RHYTHM ECG No change from prior EKG Electronically Signed By: Stalin Arauz MD XR Chest 1 View Result Date: 12/29/2022 Narrative: EXAM DESCRIPTION: XR CHEST 1 VIEW REASON FOR STUDY: shortness of breath SOB Tonight. TECHNIQUE: Portable upright AP view of the chest. COMPARISON: 05/05/2022 FINDINGS: LUNGS AND PLEURA: Nofocal opacity, large effusion, or pneumothorax identified. HEART/MEDIASTINUM: Trachea midline. Cardi ac silhouette normal in size. Mediastinal contours appear normal. BONES: Shoulder arthritis. CHEST WALL: Unremarkable. UPPER ABDOMEN: Unremarkable. IMPRESSION: No acute abnormality identified. THIS IS AN ELECTRONICALLY VERIFIED FINAL REPORT 12/29/2022 12:01 AM - Electronically signed by Bird Paz M.D. AR: ADIS Report ID: [id number] Reading Location: [place] [id number] CT Abdomen Pelvis WO Contrast Result Date: 12/22/2022 Narrative: EXAM DESCRIPTION: CT ABDOMEN PELVIS WO CONTRAST REASON FOR STUDY: Abdominal infection suspected Table formatting from the original note was not included. Images from the original note were not included. Pt to ED via POV for diarrhea. Per Pt she has had diarrhea for 2 wks. Per Pt she hasbeen medicating with imodium, with no relief. Pt denies srikanth abdominal pain. Pt reports feeling increasingly weak. TECHNIQUE: CT scan of the abdomen and pelvis performed without intravenous and without oral contrast using helical scanning technique. Reconstructed coronal and sagittal MPR images reviewed. All images stored on PACS. Automated exposure control was used as a dose optimization technique for this examination. COMPARISON: 11/09/2021 REFERENCE: Per ACR white paper recommendations, unless otherwise specified no follow-up imaging is recommended for incidental renal and adrenal lesions per consensus recommendations based on imaging criteria. Further lab evaluation could be pursued based on clinical findings. FINDINGS: The sensitivity for detection of visceral lesions is diminished without the use of intravenous contrast. LOWER CHEST: There is mild cardiomegaly. There is no definite evidence of pericardial effusion. There are atherosclerotic changes of the aorta and vasculature. There is a left common iliac artery stent noted terminating in the left external iliac artery. Thereis mild bibasilar subsegmental atelectasis and scarring. There is a small hiatal hernia. LIVER: Theliver is grossly stable in size and contour. GALLBLADDER: Surgically absent. BILE DUCTS: No intrahepatic or extrahepatic ductal dilatation. SPLEEN: The spleen is grossly stable in size and unremarkable. PANCREAS: The pancreas has a grossly stable unenhanced CT appearance. ADRENALS: The right adrenal gland is grossly stable and unremarkable. There is stable mild nonspecific nodularity of the left adrenal gland. KIDNEYS/URINARY TRACT: There is no definite unenhanced CT evidence of a renal mass. There is no definite evidence of nephrolithiasis. There is no definite evidence of hydronephrosis or hydroureter. 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 There is suggestion of circumferential mucosal thickening of the urinary bladder. There is suggestion ofair within the urinary bladder. GI: There is no definite evidence of bowel obstruction. The appendix is not visualized, however there are no definite pericecal inflammatory changes to suggest appendicitis. There are scattered colonic diverticula without definite evidence of diverticulitis. There ismild mucosal thickening of the descending colon and sigmoid colon. There are multiple small fat containing ventral abdominal wall hernias. There is no definite evidence of free air or fluid in the abdomen and pelvis. There is no definite unenhanced CT evidence of lymphadenopathy in the abdomen and pelvis. REPRODUCTIVE: There is no definite unenhanced CT evidence of a large ovarian or uterine mass. MUSCULOSKELETAL: There is mild osteopenia. There is a minimal to mild levoscoliotic curvature of the spine with degenerative changes. There are degenerative changes bilateral sacroiliac joints. Postsurgical changes bilateral hip arthroplasties are noted. OTHER: No other abnormality. IMPRESSION: Nodefinite evidence of bowel obstruction. No definite evidence of obstructive uropathy or nephrolithiasis. Circumferential mucosal thickening of the urinary bladder, which may be related to underdistention versus cystitis. Clinical correlation with urinary analysis is recommended as clinically indicated. Suggestion of air within the urinary bladder, which may be related to recent instrumentation. Correlation with recent procedural history is recommended as clinically indicated. Mild mucosal thicke tasha of the descending colon and sigmoid colon, which may be related to underdistention versus mildcolitis of infectious or inflammatory etiology. Scattered colonic diverticula without definite evidence of diverticulitis. THIS IS AN ELECTRONICALLY VERIFIED FINAL REPORT 12/22/2022 2:04 PM - Electronically signed by Rock Jerome D.O. PS: PS Report ID: [id number] Reading Location: [id number] ECG 12 lead Result Date: 12/22/2022 Narrative: Vent Rate: 70 bpm RR Interval: 856 msec RI Interval: 0 msec QRS Duration: 82 msec QT Interval: 396 msec QTC Interval: 416 msec P-R-T [place]: 0 - 74 - 37 degrees ATRIAL FIBRILLATION ABNORMAL RHYTHM ECG No change from prior EKG Electronically Signed By: Stalin Arauz MD Current Facility-Administered Medications Medication Dose Route Frequency Provider Last Rate Last Admin acetaminophen (TYLENOL) tablet 650 mg 650 mg oral Q4H PRN Ondina Blanco MD 650 mg at 12/29/22 0003 albuterol 2.5 mg /3 mL (0.083 %) nebulizer solution 2.5 mg 2.5 mg nebulization Q4H PRN (RT) Ondina Blanco MD benzonatate (TESSALON) capsule 100 mg 100 mg oral TID PRN Ondina Blanco MD bisacodyl EC (DULCOLAX EC) tablet 10 mg 10 mg oral Daily PRN Ondina Blanco MD cetirizine (ZyrTEC) tablet 5 mg 5 mg oral Nightly Ondina Blanco MD 5 mg at 12/29/22 0002 ciprofloxacin (CIPRO) tablet 500 mg 500 mg oral Daily - 0600 Emily Rojas PA 500 mg at 12/29/22 1425 clonazePAM (KlonoPIN) tablet 0.5 mg 0.5 mg oral Nightly Abegunde, Ondina O., MD 0.5 mg at 12/29/22 0003 [Held by Provider] clopidogreL (PLAVIX) tablet 75 mg 75 mg oral Daily Ondina Blanco MD [Held by Provider] furosemide (LASIX) tablet 40 mg 40 mg oral BID Ondina Blanco MD magnesium hydroxide (MILK OF MAGNESIA) 80 mg/mL (33.3 mg/mL as elemental magnesium) oral [id number] mL 30 mL oral Daily PRN Ondina Blanco MD [Held by Provider] metOLazone (ZAROXOLYN) tablet 2.5 mg 2.5 mg oral Every other day Ondina Blanco MD metroNIDAZOLE (FLAGYL) tablet 500 mg 500 mg oral TID Emily Rojas PA 500 mg at 12/29/22 1425 mineral oil (FLEET MINERAL OIL) enema 133 mL 1 enema rectal Daily PRN Ondina Blanco MD ondansetron (ZOFRAN) injection 4 mg 4 mg intravenous Q6H PRN Ondina Blanco MD pantoprazole DR (PROTONIX) extended release tablet 40 mg 40 mg oral Daily Ondina Blanco MD40 mg at 12/29/22 0834 [Held by Provider] potassium chloride ER (KLOR-CON) extended release tablet 40 mEq 40 mEq oral BID Ondina Blanco MD pramipexole (MIRAPEX) tablet 0.25 mg 0.25 mg oral BID Ondina Blanco MD 0.25 mg at 834 propranoloL (INDERAL) tablet 20 mg 20 mg oral BID Ondina Blanco MD 20 mg at 12/29/22 0002 [Held by Provider] rivaroxaban (XARELTO) tablet 20 mg 20 mg oral Daily Ondina Blanco MD sodium chloride 0.9% flush 0.5-20 mL 0.5-20 mL intra-catheter Q8H Ondina Blanco MD 10 mL at 12/29/22 0518 sodium chloride 0.9% flush 0.5-20 mL 0.5-20 mL intra-catheter PRN Ondina Blanco MD [Held by Provider] sodium chloride 0.9% infusion 75 mL/hr intravenous Continuous Hank Moulton MD 75 mL/hr at 12/28/222121 75 mL/hr at 12/28/222121 [Held by Provider] spironolactone (ALDACTONE) tablet 25 mg 25 mg oral BID Ondina Blanco MD A/P: Colitis - infectious vs inflammatory vs ischemic [...] holding parameters in light of soft BP My total encounter time on 12/29/2022 was 36 minutes which was spent in the activities documented inthe note. This includes time spent prior to the visit and after the visit in direct care of the patient. This time does not include time spent in any separately reportable services. Principal Problem: Diarrhea, unspecified type Active Problems: Atrial fibrillation (CMS/HCC) (HCC) Peripheral arterial disease (HCC) Chronic heart failure with preserved ejection fraction (CMS/HCC) (HCC) Acute colitis Resolved Problems: No resolved hospital problems. Voice recognition software Gumiyo Fluency Direct was used dictate and transcribe this document. Venetian Blind Tape Cutter variances may occur. Despite proofreading, typographical errors may occur. Chaya Kiser MD 12/29/2022 3:39 PM * Jani Gu, [facility] - 12/29/2022 1:33 PM CDT Antimicrobial Stewardship Team Note Renal Dose Adjustment This patient has been assessed by the Antimicrobial Stewardship Team and meets P&T-approved criteria for renal dose adjustment of antimicrobial therapy. Dose of Cipro 500 mg po daily adjusted per renal protocol for CrCl=< 30 ml/min (CrCl=16 ml/min) Estimated Creatinine Clearance: 16 mL/min (A) (by C-G 65 yr and older- minimum SCr 0.8 based on SCr of 1.85 mg/dL (H)). Anti-infectives (From admission, onward) Start Dose/Rate Route Frequency Ordered Stop 12/29/22 1600 metroNIDAZOLE (FLAGYL) tablet 500 mg Indications of Use: Abdominal/Pelvic Infection 500 mg oral 3 times daily 12/29/22 1330 12/29/22 1400 ciprofloxacin (CIPRO) tablet 500 mg Indications of Use: Abdominal/Pelvic Infection 500 mg oral Daily (early AM) 12/29/22 1333 Lab Results Component Value Date/Time CREATININE 1.85 (H) 12/29/2022 06:32 AM CREATININE 2.05 (H) 12/09/2022 10:42 AM BUNSER 39 (H) 12/29/2022 06:32 AM BUNSER 61 (H) 12/09/2022 10:42 AM Estimated Creatinine Clearance: 16 mL/min (A) (by C-G 65 yr and older- minimum SCr 0.8 based on SCrof 1.85 mg/dL (H)). I/O last 3 completed shifts: In: 695 [P.O.:520; I.V.:175] Out: - Lab Results Component Value Date/Time WBC 6.1 12/29/2022 06:32 AM WBC 6.9 05/23/2022 10:45 AM Temp Readings from Last 3 Encounters: 12/29/22 36.3 ??C (97.3 ??F) (Temporal) 12/23/22 36.3 ??C (97.3 ??F) 12/22/22 36.3 ??C (97.4 ??F) (Temporal) For questions please contact: Jani Gu RPh [facility] Pharmacy department [phone] * Tong Aquino, OT - 12/29/2022 1:16 PM CDT Occupational Therapy Initial Evaluation Past Medical History: Diagnosis Date Allergic rhinitis [...] Cell Tobacco use 1-2ppd x 35yrs quit 12/29/22 1047 General Chart Reviewed Yes Session Type Evaluation OT Received On 12/29/22 Safe Environment Arm band checked;Patient found in supine Subjective Agreeable to Therapy Family/Caregiver Present Yes Occupational Therapy-Patient Goal to walk and go home Precautions Precautions Fall risk;Bed/Chair Alarm Home Living [facility] Home Layout One level Home Access Stairs to enter with rails Entrance Stairs-Rails Both Entrance Stairs-Number of Steps 2 Bathroom Shower/Tub Walk-in shower with threshold Bathroom Toilet Raised Bathroom Equipment Grab bars in shower/tub;Built-in shower seat;Hand-held shower Home Mobility Equipment-Available Wheeled walker;4-Wheeled walker Home Mobility Equipment-Currently Using None;4-Wheeled walker (uses rolator only when out shopping if needed) Prior Function Level of [place] Independent with ADLs;Independent functional transfers;Independent with ambulation;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) Lives With Alone Receives Help From Family Driving Yes Fall within the last 6 months No ADL ADLS (WDL) X Grooming Grooming: Where assessed Standing at sink Grooming: Level of assistance Standby Assist Grooming: Assistance with Increased time to complete;Wash/dry hands LE Dressing LE Dressing: Where assessed Standing;Sitting;Chair LE Dressing: Level of assistance Standby Assist LE Dressing: Assistance with Thread LLE into underwear;Thread RLE into underwear;Pull up over hips Toileting Toileting: Where assessed Toilet Toileting: Level of assistance Minimum Assist Toileting: Assistance with Clothing management up;Clothing management down;Perineal hygiene;Anterior;Posterior Toilet Transfers Toilet Transfer From Bed Toilet Transfer Type To Toilet Transfer to Standard toilet Toilet Transfer Technique Ambulating Toilet Transfer: Equipment Wheeled walker Toilet Transfers Contact guard Pain Assessment Pain Assessment 0-10 Pain Score 8 Pain Type Chronic pain Pain Location Back (Lumbar) Pain Interventions Repositioned Activity Tolerance Endurance Endurance does not limit participation in activity Cognition Overall Cognitive Status WFL Orientation Oriented X4 (person, place, time, situation) Compliance/Behavior Easy to engage Static Sitting Balance Static Sitting-Balance Support Bilateral upper extremity supported;No upper extremity supported;Feet supported Static Sitting-Sitting Surface Bed Static Sitting-Level of Assistance Independent Static Standing Balance Static Standing-Balance Support Bilateral upper extremity supported;Unilateral upper extremity supported Static Standing-Standing Surface Floor Static Standing-Level of Assistance Contact guard Bed Mobility 1 Bed Mobility From 1 Supine Bed Mobility Type 1 To Bed Mobility to 1 Edge of bed Level of Assistance 1 Standby Assist Transfer 1 Transfer From 1 Bed Transfer Type 1 To Transfer to 1 Chair with arms;Toilet Technique 1 Sit to stand;Stand to sit;Ambulation Transfer Device 1 Wheeled walker Transfer Level of Assistance 1 Contact Guard Assist RUE Assessment RUE Assessment WFL LUE Assessment LUE Assessment X LUE Comments pt demonstrates ROM WFL but strength 3+/5, states chronic weakness to LT UE since surgery in her mid 30's. Safe Environment End of Therapy Session Safe Environment End of Therapy Session Patient left in recliner;Chair alarm in place and activated;RN notified;Overbed table within reach;Call light within reach Assessment Prognosis Excellent Problem List Decreased endurance;Decreased balance;Decreased functional mobility;Decreased ADL independence Plan Plan Plan of care initiated;If this is the last note, consider this the discharge summary Recommendation/Plan OT Recommendation Home independently;Home with intermittent assist;Home Health OT OT Recommendation/Plan Comments home health OT for home safety and improved independence with toileting. OT Frequency during current admission 3-5x/wk (Mon-Fri, Sat PRN) Treatment/Interventions during current admission ADL/IADL retraining;Balance Training;Bed mobility;Endurance training;Functional activity;Functional mobility training;Therapeutic activity;Therapeuticexercise OT Evaluation Complete Yes Multi-Disciplinary Problems (from Occupational Therapy) Active Problems Problem: Dressings Lower Extremities Start Date: 12/29/22 Goal Start Date Expected End Date End Date STG - Patient to complete lower body dressing 12/29/22 01/05/23 -- Goal Details: Independent Problem: Grooming Start Date: 12/29/22 Goal Start Date Expected End Date End Date STG - Patient will complete grooming 12/29/22 01/05/23 -- Goal Details: Independent Problem: Toileting Start Date: 12/29/22 Goal Start Date Expected End Date End Date STG - Patient will complete toileting tasks with 12/29/22 01/05/23 -- Goal Details: Independent Problem: Transfers Start Date: 12/29/22 Goal Start Date Expected End Date End Date STG - Patient will perform toilet transfer 12/29/22 01/05/23 -- Goal Details: Independent * Lili Murillo, PT - 12/29/2022 11:05 AM CDT Physical Therapy 12/29/22 1048 General Chart Reviewed Yes Session Type Evaluation Safe Environment Arm band checked;Patient found in supine Subjective Agreeable to Therapy Additional Pertinent History 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 Family/Caregiver Present No Precautions Precautions Bed/Chair Alarm;Fall risk Home Living Type of Home Condo/Townhome/[place] (seniors) Home Layout One level Home Access Stairs to enter with rails (2) Entrance Stairs-Rails Both Home Mobility Equipment-Available Wheeled walker Home Mobility Equipment-Currently Using None Prior Function Level of [place] Independent with ADLs;Independent functional transfers;Independent with ambulation Lives With Alone Receives Help From Family Driving Yes Fall within the last 6 months No Pain Assessment Pain Assessment 0-10 Pain Score 8 (lumbar, chronic) Cognition Overall Cognitive Status WFL Orientation Oriented X4 (person, place, time, situation) Compliance/Behavior Easy to engage Balance Balance Yes Static Sitting Balance Static Sitting-Balance Support Bilateral upper extremity supported Static Sitting-Sitting Surface Bed Static Sitting-Level of Assistance Independent Static Standing Balance Static Standing-Balance Support Bilateral upper extremity supported Static Standing-Standing Surface Floor Static Standing-Level of Assistance Contact guard Bed Mobility Bed Mobility Yes Bed Mobility 1 Bed Mobility From 1 Supine Bed Mobility Type 1 To and from Bed Mobility to 1 Edge of bed Level of Assistance 1 Standby Assist Transfers Transfer Yes Transfer 1 Transfer From 1 Bed;Sit Transfer Type 1 To and from Transfer to 1 Stand;Floor Technique 1 Stand to sit;Sit to stand Transfer Device 1 Wheeled walker Transfer Level of Assistance 1 Contact Guard Assist Ambulation 1 Distance (ft) 1 80 Surface 1 Level tile Device 1 Wheeled walker Assistance 1 Standby Assist Gait: Requires assist with 1 Maintaining balance Gait: Requires verbal cues to 1 Use assistive device safely;Improve upright posture;Increase step length;Increase base of support Quality of Gait 1 dec speed, drifts w walker to the R RLE Assessment RLE Assessment WFL LLE Assessment LLE Assessment WF Basic Mobility - 6 Click How much difficulty does the patient have: Turning over in bed 4 How much difficulty does the patient currently have: Sitting down and standing up from a chair witharms? 4 How much difficulty does the patient have: Moving from lying on back to sitting on the side of the bed? 4 How much difficulty does the patient have: Moving to and from a bed to a chair including wheelchair? 4 How much help does the patient currently need: Walk in hospital room? 3 How much help from another person does the patient currently need: Climbing 3-5 steps with a railing? 3 Total 6 Click Score (range 6-24) 22 Score Interpretation 47.40 Safe Environment End of Therapy Session Safe Environment End of Therapy Session RN notified;Call light within reach;Overbed table within reach;Patient left supine in bed Assessment Prognosis Good Problem List Gait deviations;Decreased strength;Decreased range of motion;Decreased endurance;Impaired balance;Decreased mobility Barriers to Discharge Current Mobility Status Plan Plan Plan of care initiated;If this is the last note, consider this the discharge summary Recommendation/Plan PT Recommendation/Plan Home independently Patient at high risk for Readmission;Falls PT Frequency during current admission Daily Treatment/Interventions during current admission Balance Training;Bed mobility;Gait training;Functional transfer training;Functional activity;Endurance training;Range of motion;Strengthening;Therapeutic activity;Therapeutic exercise;Transfer training PT Equipment Recommended None PT Evaluation Complete Yes documented in this encounter H&P Notes * Ondina Blnaco MD - 12/28/2022 11:12 PM CDT History and Physical CHIEF COMPLAINT Chief Complaint Patient presents with Diarrhea HPI: 87-year-old female with history of diastolic heart failure, paroxysmal AFib presenting with diarrhea that started around December 04. She denies any recent change to her medications, use of [id number] supplements, sick contact, or recent travel. On average, she dines out 3 times a week. She hasbeen on 3 different antibiotics that she is only been able to tolerate for 1-2 days at a time and has to stop them early due to worsening of her diarrhea. She has also been taking Imodium for over 2 weeks several times a day and has mild improvement of the stool frequency to 5 times daily. Eating makes the diarrhea worse and she has now changed her diet to soup and crackers. She has no abdominal pain or vomiting at this time, fever, chills, and does not report any dark or bloody stool. In the past, she has had abdominal cramping and vomited twice. She has never had a colonoscopy. She suggested to her provider that her friends had tried budesonide that helped them with diarrhea and she was pr escribed this medication. 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 It does not appear that she has a clear diagnosis of microscopic colitis. She reports she has been coughing a lot more today and feels she has fluid in her lungs. Has dry cough. She is had some mild shortness of breath for the past few days also. Has no chest pain or palpitations. 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 CHF (congestive heart failure) ([facility]/HCC) ([facility]) Cough DVT (deep venous thrombosis) ([facility]) ([facility]) 1976 upper left arm near elbow--- [...] ARTHROPLASTY Left 11/01/2021 Dr. Mckenzie, [facility]. Medications Prior to Admission Medication Sig Dispense Refill Last Dose albuterol HFA (Proventil HFA) 90 mcg/actuation inhaler Inhale 2 puffs every 6 (six) hours as neededfor wheezing or shortness of breath 6.7 g 0 More than a month budesonide DR/ER (ERIS) 9 mg tablet, delayed & ext.release Take 1 tablet (9 mg total) by mouth daily 30 tablet 0 Unknown cetirizine (ZyrTEC) 10 mg tablet Take 1 tablet (10 mg total) by mouth nightly 90 tablet 3 12/28/2022 cholecalciferol (VITAMIN D-3) 2000 unit tablet Take 1 tablet (2,000 Units total) by mouth daily 12/27/2022 clonazePAM (KlonoPIN) 0.25 mg disintegrating tablet Take 1 tablet (0.25 mg total) by mouth 2 (two) times a day as needed (Restless leg) 60 tablet 5 Unknown clonazePAM (KlonoPIN) 0.5 mg tablet Take 1 tablet (0.5 mg total) by mouth nightly 30 tablet 5 12/27/2022 clopidogreL (PLAVIX) 75 mg tablet Take 1 tablet (75 mg total) by mouth daily 90 tablet 3 12/28/2022 felodipine (PLENDIL) 5 mg 24 hr tablet Take 1 tablet (5 mg total) by mouth daily 90 tablet 2 12/28/2022 furosemide (LASIX) 40 mg tablet Take 1 tablet (40 mg total) by mouth 2 (two) times a day 180 tablet3 12/28/2022 metOLazone (ZAROXOLYN) 2.5 mg tablet Take 1 tablet (2.5 mg total) by mouth every other day 45 tablet 3 12/28/2022 ondansetron (ZOFRAN) 4 mg tablet Take 1 tablet (4 mg total) by mouth every 8 (eight) hours as needed for nausea or vomiting 20 tablet [address] (PROTONIX) 20 mg EC tablet Take 1 tablet (20 mg total) by mouth daily With the largest meal 90 tablet 2 12/28/2022 polyethylene glycol (MIRALAX) 17 gram packet Take 1 packet (17 g total) by mouth daily as needed for constipation More than a month potassium chloride ER (KLOR-CON) 20 mEq CR tablet Take 2 tablets (40 mEq total) by mouth 2 (two) times a day 120 tablet 11 12/28/2022 pramipexole (MIRAPEX) 0.25 mg tablet Take 1 tablet (0.25 mg total) by mouth 2 (two) times a day 180tablet 2 12/28/2022 propranoloL (INDERAL) 20 mg tablet Take 1 tablet (20 mg total) by mouth 2 (two) times a day as needed (Tremor) 180 tablet 2 12/28/2022 rivaroxaban (XARELTO) 20 mg tablet Take 1 tablet (20 mg total) by mouth daily 30 tablet 11 12/28/2022 spironolactone (ALDACTONE) 25 mg tablet Take 1 tablet (25 mg total) by mouth 2 (two) times a day 180 tablet 3 12/27/2022 Allergies Allergen Reactions Celecoxib Anaphylaxis Scopolamine Mental status changes Delirium postop after joint replacement due to this medicine Sulfa (Sulfonamide Antibiotics) Anaphylaxis Amlodipine Swelling Lisinopril Swelling Trazodone Swelling Tongue Cymbalta [Duloxetine] Fatigue Sleepiness, tiredness possibly related to 20 mg morning dose of this medicine discontinued 11/30/2020 Sinemet [Carbidopa-Levodopa] Other (See comments) Night hines Current Facility-Administered Medications Medication Dose Route Frequency Provider Last Rate Last Admin acetaminophen (TYLENOL) tablet 650 mg 650 mg oral Q4H PRN Ondina Blanco MD albuterol 2.5 mg /3 mL (0.083 %) nebulizer solution 2.5 mg 2.5 mg nebulization Q4H PRN (RT) Ondina Blanco MD cetirizine (ZyrTEC) tablet 5 mg 5 mg oral Nightly Ondina Blanco MD clonazePAM (KlonoPIN) tablet 0.5 mg 0.5 mg oral Nightly Ondina Blanco MD [START ON 12/29/2022] clopidogreL (PLAVIX) tablet 75 mg 75 mg oral Daily Ondina Blanco MD [Held by Provider] furosemide (LASIX) tablet 40 mg 40 mg oral BID Ondina Blanco MD [Held by Provider] metOLazone (ZAROXOLYN) tablet 2.5 mg 2.5 mg oral Every other day Ondina Blanco MD ondansetron (ZOFRAN) injection 4 mg 4 mg intravenous Q6H PRN Ondina Blanco MD [START ON 12/29/2022] pantoprazole DR (PROTONIX) extended release tablet 40 mg 40 mg oral Daily Ondina Blanco MD [Held by Provider] potassium chloride ER (KLOR-CON) extended release tablet 40 mEq 40 mEq oral BID Ondina Blanco MD pramipexole (MIRAPEX) tablet 0.25 mg 0.25 mg oral BID Ondina Blanco MD propranoloL (INDERAL) tablet 20 mg 20 mg oral BID Ondina Blanco MD [Held by Provider] rivaroxaban (XARELTO) tablet 20 mg 20 mg oral Daily Ondina Blanco MD [Held by Provider] sodium chloride 0.9% infusion 75 mL/hr intravenous Continuous Hank Moulton MD 75 mL/hr at 12/28/222121 75 mL/hr at 12/28/222121 [Held by Provider] spironolactone (ALDACTONE) tablet 25 mg 25 mg oral BID Ondina Blanco MD Social History Tobacco Use Smoking status: Former [...] Father Review of Systems: 1. Constitutional Denies: weight loss, weight gain, fever, chills, night sweats, fatigue 2. Eyes Denies: change in vision, double vision, eye pain, eye discharge, icterus 3. ENT Denies: change in hearing, ear pain, ear discharge, nose bleed, nasal congestion, sore throat 4. Respiratory Denies: wheezing, cough, sputum, hemoptysis 5. CV Denies: chest pain, palpitations, syncope, edema, dyspnea 6. GI Denies: abdominal pain, decreased appetite, nausea, vomiting, change in bowel habitus, constipation, melena, BRBPR 7. Denies: dysuria, frequency, hematuria, nocturia, urgency 8. Metabolic Denies: cold intolerance, heat intolerance, polyphagia, polydipsia 9. Neurologic Denies: headache, dizziness, seizure, change in mental status, focal weakness, focal numbness 10. Musculoskeletal Denies: myalgia, joint pain, joint redness, joint swelling, extremity pain 11. Hematologic Denies: bleeding, bruising, hematoma, lymphadenopathy, icterus OBJECTIVE Vitals: Arrival Vitals Temp 12/28/22 1624 36.4 ??C (97.6 ??F) Pulse 12/28/22 1624 78 Resp 12/28/22 1624 18 BP 12/28/22 1626 140/73 SpO2 12/28/22 1624 95 % Temp src 12/28/222136 Temporal Heart Rate Source -- Patient Position 12/28/222136 Lying BP Location 12/28/222119 Right arm FiO2 (%) -- 24hr Min/Max: Temp Min: 36.2 ??C (97.1 ??F) Max: 36.4 ??C (97.6 ??F) Pulse Min: 69 Max: 93 BP Min: 81/62 Max: 140/73 Resp Min: 13 Max: 31 SpO2 Min: 93 % Max: 100 % Most Recent : Vitals: 12/28/222136 BP: 111/49 Pulse: 81 Resp: 18 Temp: 36.2 ??C (97.1 ??F) SpO2: 94% No intake or output data in the 24 hours ending 12/28/222326 Physical exam: General: awake, alert, oriented to person, place, and time. No acute distress Eyes: no scleral icterus, extraocular motion is intact, pupils are equal Neck: supple Pharynx: No gross oral lesion, tongue midline, mucosa moist Lungs: clear to auscultation except bibasilar rales, no wheeze Heart: normal rate, normal rhythm, normal s1 and s2, no murmur noted Abd: present bowel sounds, Non Tender, Non distended Extremities: No gross edema, strength exam is 5/5 and symmetric Neuro: CN 2-12 is grossly intact, has no focal weakness Musculoskeletal: no gross joint erythema, edema, tenderness Psychiatric: normal affect and mood Lab/Radiology/Diagnostic Review: Recent Results (from the past 24 hour(s)) CBC with auto differential Collection Time: 12/28/22 4:30 PM Result Value Ref Range WBC 8.4 3.8 - 9.9 K/cumm Hgb 13.2 11.9 - 15.5 g/dL Hct 40.8 35.6 - 45.5 % Plt 318 150 - 400 K/cumm MPV 8.8 (L) 9.1 - 12.3 fL RBC 4.84 3.90 - 5.20 M/cumm MCV 84.3 81.3 - 96.4 fL MCH 27.3 27.1 - 33.3 pg MCHC 32.4 32.3 - 35.7 g/dL RDW CV 13.7 11.1 - 14.9 % RDW SD 42.4 35.7 - 48.1 fL NRBC abs 0.00 0.00 - 0.01 K/cumm Comprehensive metabolic panel Collection Time: 12/28/22 4:30 PM Result Value Ref Range Sodium 130 (L) 135 - 145 mmol/L Potassium, pl 4.9 3.3 - 4.9 mmol/L Chloride 91 (L) 97 - 110 mmol/L CO2 27 22 - 32 mmol/L Anion gap 13 2 - 15 mmol/L BUN 44 (H) 6 - 25 mg/dL Creatinine 2.12 (H) 0.60 - 1.10 mg/dL Glucose 89 70 - 199 mg/dL Calcium 9.7 8.5 - 10.3 mg/dL Bilirubin, total 0.4 0.1 - 1.2 mg/dL Protein, pl 6.9 6.5 - 8.5 g/dL Albumin 3.5 3.5 - 5.0 g/dL Alk phos 107 40 - 130 Units/L ALT 9 7 - 45 Units/L AST 14 10 - 45 Units/L Magnesium Collection Time: 12/28/22 4:30 PM Result Value Ref Range Magnesium 1.8 1.4 - 2.5 mg/dL Differential, auto Collection Time: 12/28/22 4:30 PM Result Value Ref Range Neutrophil abs 6.4 1.7 - 6.5 K/cumm Imm gran abs 0.1 0.0 - 0.1 K/cumm Lymphocyte abs 0.8 0.8 - 3.3 K/cumm Monocyte abs 0.9 (H) 0.2 - 0.8 K/cumm Eosinophil abs 0.2 0.0 - 0.5 K/cumm Basophil abs 0.0 0.0 - 0.1 K/cumm Neutrophil pct 76.0 % Imm gran pct 0.8 % Lymphocyte pct 9.3 % Monocyte pct 10.7 % Eosinophil pct 2.7 % Basophil pct 0.5 % eGFR Collection Time: 12/28/22 4:30 PM Result Value Ref Range eGFR 22 mL/min/1.[address] Abdomen Pelvis WO Contrast Result Date: 12/22/2022 Narrative: EXAM DESCRIPTION: CT ABDOMEN PELVIS WO CONTRAST REASON FOR STUDY: Abdominal infection suspected Table formatting from the original note was not included. Images from the original note werenot included. Pt to ED via POV for diarrhea. Per Pt she has had diarrhea for 2 wks. Per Pt she has been medicating with imodium, with no relief. Pt denies srikanth abdominal pain. Pt reports feeling increasingly weak. TECHNIQUE: CT scan of the abdomen and pelvis performed without intravenous and without oral contrast using helical scanning technique. Reconstructed coronal and sagittal MPR images reviewed. All images stored on PACS. Automated exposure control was used as a dose optimization technique for this examination. COMPARISON: 11/09/2021 REFERENCE: Per ACR white paper recommendations, unless otherwise specified no follow-up imaging is recommended for incidental renal and adrenal lesions per consensus recommendations based on imaging criteria. Further lab evaluation could be pursued based on clinical findings. FINDINGS: The sensitivity for detection of visceral lesions is diminished without the use of intravenous contrast. LOWER CHEST: There is mild cardiomegaly. There is no definiteevidence of pericardial effusion. There are atherosclerotic changes of the aorta and vasculature. There is a left common iliac artery stent noted terminating in the left external iliac artery. There is mild bibasilar subsegmental atelectasis and scarring. There is a small hiatal hernia. LIVER: The liver is grossly stable in size and contour. GALLBLADDER: Surgically absent. BILE DUCTS: No intrahepatic or extrahepatic ductal dilatation. SPLEEN: The spleen is grossly stable in size and unremarkable. PANCREAS: The pancreas has a grossly stable unenhanced CT appearance. ADRENALS: The right adrenalgland is grossly stable and unremarkable. There is stable mild nonspecific nodularity of the left adrenal gland. KIDNEYS/URINARY TRACT: There is no definite unenhanced CT evidence of a renal mass. There is no definite evidence of nephrolithiasis. There is no definite evidence of hydronephrosis or hydroureter. 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 Thereis suggestion of circumferential mucosal thickening of the urinary bladder. There is suggestion of air within the urinary bladder. GI: There is no definite evidence of bowel obstruction. The appendixis not visualized, however there are no definite pericecal inflammatory changes to suggest appendicitis. There are scattered colonic diverticula without definite evidence of diverticulitis. There is mild mucosal thickening of the descending colon and sigmoid colon. There are multiple small fat containing ventral abdominal wall hernias. There is no definite evidence of free air or fluid in the abdomen and pelvis. There is no definite unenhanced CT evidence of lymphadenopathy in the abdomen and pelvis. REPRODUCTIVE: There is no definite unenhanced CT evidence of a large ovarian or uterine mass.MUSCULOSKELETAL: There is mild osteopenia. There is a minimal to mild levoscoliotic curvature of the spine with degenerative changes. There are degenerative changes bilateral sacroiliac joints. Postsurgical changes bilateral hip arthroplasties are noted. OTHER: No other abnormality. IMPRESSION: No definite evidence of bowel obstruction. No definite evidence of obstructive uropathy or nephrolithiasis. Circumferential mucosal thickening of the urinary bladder, which may be related to underdistention versus cystitis. Clinical correlation with urinary analysis is recommended as clinically indicated. Suggestion of air within the urinary bladder, which may be related to recent instrumentation. Correlation with recent procedural history is recommended as clinically indicated. Mild mucosal thicken ing of the descending colon and sigmoid colon, which may be related to underdistention versus mild colitis of infectious or inflammatory etiology. Scattered colonic diverticula without definite evidence of diverticulitis. THIS IS AN ELECTRONICALLY VERIFIED FINAL REPORT 12/22/2022 2:04 PM - Electronically signed by Rock Jerome D.O. PS: PS Report ID: [id number] Reading Location: [id number] ECG 12 lead Result Date: 12/22/2022 Narrative: Vent Rate: 70 bpm RR Interval: 856 msec RI Interval: 0 msec QRS Duration: 82 msec QT Interval: 396 msec QTC Interval: 416 msec P-R-T [place]: 0 - 74 - 37 degrees ATRIAL FIBRILLATION ABNORMAL RHYTHM ECG No change from prior EKG Electronically Signed By: Stalin Arauz MD A/P DANNY on CKD 4, chronic hyponatremia. Hold diuretics. Patient received 1-1/2 L of IV fluid. Due to her respiratory complaints will hold further fluid at this time pending chest x-ray. Persistent diarrhea. This has been ongoing for close to a month. Hold imodium. Afebrile and has no leukocytosis. Hold IV antibiotics in the interim. Pending inflammatory markers and stool studies. GIconsult in a.m.. Suspected colitis, descending/sigmoid colon. May be ischemic or infectious. Plan is as noted above. Paroxysmal AFib. Rate controlled and will hold Xarelto in the event of any plan for colonoscopy. Last dose of Xarelto was today. Has high chads Vasc score of 6 and may need heparin bridging starting tomorrow in the event for any planned for colonoscopy. HFpEF, chronic. Hold diuretics and further iv fluid. Pending cxr to rule out vascular congestion. History of peripheral arterial disease. Last intervention was Feb 2022. Hold Plavix (last dose was also today) pending clarification on any plan for procedure. Resume as soon as possible. Essential tremors. Resume propranolol 20mg bid Restless leg syndrome. Resume nightly requip SCDs Code status: Full Anticipated length of stay is greater than 2 midnights My total encounter time was 75 minutes which was spent in the activities documented in the note. This includes time spent prior to the visit and after the visit in direct care of the patient. This time does not include time spent in any separately reportable services. Voice recognition software Swing by [employer] was used dictate and transcribe this document. [employer] Cutter variances may occur. Despite proofreading, typographical errors may occur. Ondina Blanco MD documented in this encounter Consult Notes * Emily Rojas PA - 12/29/2022 9:45 AM CDT Gastroenterology Inpatient Note Reason for consult: diarrhea, colitis Date of visit: 12/29/2022 Person requesting consult: Dr. Blanco Subjective HPI: Tess Benedict is a 87 y.o. female presented to the ED yesterday with concern of diarrhea and abdominal pain. She was recently evaluated in the ED 12/22 for the same symptoms. At that time a CTof the abdomen and pelvis was performed which noted findings consistent with colitis. She was discharged home on p.o. antibiotics. States that she did not take this medication to completion because it made her diarrhea worse. She states that she has been experiencing diarrhea for the past month. She admits to associated lower abdominal cramping prior to having a bowel movement, and the pain improves after defecation. She denies any melena or hematochezia. Denies any upper GI symptoms, includingnausea, vomiting, epigastric abdominal pain, heartburn, reflux, dysphagia. She denies recent unintentional weight loss. She is afebrile. CRP is elevated; ESR is within normal limits. C diff testing negative. Other stool cultures and tests are pending. She denies any history of previous EGD or colonoscopy and reports that she is uninterested in scopes at this time. She denies any known family history of colon cancer or IBD. Plavix and Xarelto are currently being held. She is on 40 mg Protonix daily for GI prophylaxis. Past Medical History: Diagnosis Date Allergic rhinitis [...] ARTHROPLASTY Left 11/01/2021 Dr. Mckenzie, [facility]. Patient Active Problem List Diagnosis Hereditary essential tremor Chronic GERD 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 Restless legs syndrome Bariatric surgery status Knee joint replacement status, bilateral History of malignant melanoma Atrial fibrillation (CMS/HCC) (HCC) Spinal stenosis of lumbar region with neurogenic claudication Peripheral arterial disease (HCC) shelter current use of anticoagulant Postural kyphosis of cervicothoracic region Chronic heart failure with preserved ejection fraction (CMS/HCC) (HCC) Gait disturbance Acute colitis Diarrhea, unspecified type No current facility-administered medications on file prior to encounter. Current Outpatient Medications on File Prior to Encounter Medication Sig Dispense Refill albuterol HFA (Proventil HFA) 90 mcg/actuation inhaler Inhale 2 puffs every 6 (six) hours as neededfor wheezing or shortness of breath 6.[address]/ER (UCERIS) 9 mg tablet, delayed & ext.release Take 1 tablet (9 mg total) by mouth daily 30 tablet 0 cetirizine (ZyrTEC) 10 mg tablet Take 1 tablet (10 mg total) by mouth nightly 90 tablet 3 cholecalciferol (VITAMIN D-3) 2000 unit tablet Take 1 tablet (2,000 Units total) by mouth daily clonazePAM (KlonoPIN) 0.25 mg disintegrating tablet Take 1 tablet (0.25 mg total) by mouth 2 (two) times a day as needed (Restless leg) 60 tablet 5 clonazePAM (KlonoPIN) 0.5 mg tablet Take 1 [...] 2 (two) times a day 180 tablet3 metOLazone (ZAROXOLYN) 2.5 mg tablet Take 1 tablet (2.5 mg total) by mouth every other day 45 tablet 3 ondansetron (ZOFRAN) 4 mg tablet Take 1 tablet (4 mg total) by mouth every 8 (eight) hours as needed for nausea or vomiting [address] (PROTONIX) 20 mg EC tablet Take 1 tablet (20 mg total) by mouth daily With the largest meal 90 tablet 2 polyethylene glycol (MIRALAX) 17 gram packet Take 1 packet (17 g total) by mouth daily as needed for constipation potassium chloride ER (KLOR-CON) 20 mEq CR tablet Take 2 tablets (40 mEq total) by mouth 2 (two) times a day 120 tablet 11 pramipexole (MIRAPEX) 0.25 mg [...] times a day 180 tablet 3 [DISCONTINUED] cyclobenzaprine (FLEXERIL) 10 mg tablet Take 1 tablet (10 mg total) by mouth nightlyas needed for muscle spasms 30 tablet 0 Social History Tobacco Use Smoking status: Former [...] Arthritis; Abdominal Aortic Aneurysm Father COPD Father Allergies Allergen Reactions Celecoxib Anaphylaxis Scopolamine Mental status changes Delirium postop after joint replacement due to this medicine Sulfa (Sulfonamide Antibiotics) Anaphylaxis Amlodipine Swelling Lisinopril Swelling Trazodone Swelling Tongue Cymbalta [Duloxetine] Fatigue Sleepiness, tiredness possibly related to 20 mg morning dose of this medicine discontinued 11/30/2020 Sinemet [Carbidopa-Levodopa] Other (See comments) Night hines Review of Systems Constitutional: Negative for chills, diaphoresis, fever, and unexpected weight change. +activity change HENT: Negative for congestion, drooling, mouth sores, postnasal drip, rhinorrhea, sore throat, trouble swallowing, and voice change. Respiratory: Negative for cough, choking, chest tightness, shortness of breath, wheezing, and stridor. Cardiovascular: Negative for chest pain, palpitations, and leg swelling. Gastrointestinal: See HPI for full review of this system. No heartburn or reflux. No nausea or vomiting. No constipation. No bowel habit changes. No dark, black, or bloody bowel movements. No rectal pain or bleeding. +diarrhea, abdominal cramping Genitourinary: Negative for difficulty urinating, dysuria, frequency, and urgency. Musculoskeletal: Negative for arthralgias and myalgias. Skin: Negative for pallor and rash. Neurological: Negative for dizziness, light-headedness, and headaches. Psychiatric/Behavioral: Negative for decreased concentration, dysphoric mood, and sleep disturbance. The patient is not nervous/anxious. Objective Intake/Output last 3 shifts: I/O last 3 completed shifts: In: 695 [P.O.:520; I.V.:175] Out: - Lab/Radiology/Diagnostic Review: Recent Labs Lab Units 12/29/22 0816 12/29/22 0632 12/28/22 1630 12/22/22 1239 WBC K/cumm -- 6.1 8.4 7.4 HEMOGLOBIN g/dL -- 11.4* 13.2 14.3 HEMATOCRIT % -- 35.3* 40.8 44.1 PLATELETS K/cumm -- 252 318 333 SODIUM mmol/L -- 133* 130* 130* POTASSIUM PLASMA mmol/L -- 3.6 4.9 4.5 CHLORIDE mmol/L -- 95* 91* 89* CO2 mmol/L -- 26 27 30 ANIONGAP mmol/L -- 12 13 11 GLUCOSE mg/dL -- 80 89 92 POC GLUCOSE MONITOR mg/dL 75 -- -- -- BUN SERUM mg/dL -- 39* 44* 36* CREATININE mg/dL -- 1.85* 2.12* 1.79* CALCIUM mg/dL -- 8.8 9.7 9.9 ALBUMIN g/dL -- 2.8* 3.5 3.7 BILIRUBIN TOTAL mg/dL -- -- 0.4 0.5 ALK PHOS Units/L -- -- 107 110 ALT Units/L -- -- 9 11 AST Units/L -- -- 14 17 Results for orders placed during the hospital encounter of 12/22/22CT Abdomen Pelvis WO ContrastNarrativeEXAM DESCRIPTION: CT ABDOMEN PELVIS WO CONTRASTREASON FOR STUDY: Abdominal infection suspectedTable formatting from the original note was not included. Images from theoriginal note were not included. Pt to ED via POV for diarrhea. Per Pt shehaakbar had diarrhea for 2 wks. Per Pt she has been medicating with imodium, withno relief. Pt denies srikanth abdominal pain. Pt reports feeling increasinglyweak.TECHNIQUE: CT scan of the abdomen and pelvis performed without intravenous andwithout oral contrast using helical scanning technique. Reconstructedcoronal and sagittal MPR images reviewed. All images stored on PACS. Automatedexposure control was used as a dose optimization technique for thisexamination.COMPARISON: 2REFERENCE: Per ACR white paper recommendations, unless otherwise specified nofollow-up imaging is recommended for incidental renal and adrenal lesions perconsensus recommend ations based on imaging criteria. Further lab evaluationcould be pursued based on clinical findings.FINDINGS:The sensitivity for detection of visceral lesions is diminished without theuse of intravenous contrast.LOWER CHEST: There is mild cardiomegaly. There is no definite evidence ofpericardial effusion. There are atherosclerotic changes of the aorta andvasculature. There is a left common iliac artery stent noted terminating inthe left external iliac artery. There is mild bibasilar subsegmentalatelectasis and scarring. There is a small hiatal hernia.LIVER: The liver is grossly stable in sizeand contour.GALLBLADDER: Surgically absent.BILE DUCTS: No intrahepatic or extrahepatic ductal dilata tion.SPLEEN: The spleen is grossly stable in size and unremarkable.PANCREAS: The pancreas has a grossly stable unenhanced CT appearance.ADRENALS: The right adrenal gland is grossly stable and unremarkable. Thereis stable mild nonspecific nodularity of the left adrenal gland.KIDNEYS/URINARY TRACT: There is no definite unenhanced CT evidence of arenal mass. There is no definite evidence of nephrolithiasis. There is nodefinite evidence of hydronephrosis or hydroureter. The urinary bladder isobscured by metallic artifact bilateral hip arthroplasties. There issuggestion of circumferential mucosal thickening of the urinary bladder.There is suggestion of air within the urinary bladder.GI: There isno definite evidence of bowel obstruction. The appendix is notvisualized, however there are no definite pericecal inflammatory changes tosuggest appendicitis. There are scattered colonic diverticula withoutdefinite evidence of diverticulitis. There is mild mucosal thickening of thedescending colon and sigmoid colon. There are multiple small fat containingventral abdominal wall hernias. There is no definite evidence of free air orfluid in the abdomen and pelvis. There is no definite unenhanced CT evidenceof lymphadenopathy in the abdomen and pelvis.REPRODUCTIVE: There is no definite unenhancedCT evidence of a large ovarianor uterine mass.MUSCULOSKELETAL: There is mild osteopenia. There is aminimal to mildlevoscoliotic curvature of the spine with degenerative changes. There aredegenerative changes bilateral sacroiliac joints. Postsurgical changesbilateral hip arthroplasties are noted.OTHER: No other abnormality.ImpressionNo definite evidence of bowel obstruction.No definite evidence of obstructive uropathy or nephrolithiasis.Circumferential mucosal thickening of the urinary bladder,which may berelated to underdistention versus cystitis. Clinical correlation with urinaryanalysis is recommended as clinically indicated.Suggestion of air within the urinary bladder, which may be related to recentinstrumentation. Correlation with recent procedural history is recommended asclinically indicated.Mild mucosal thickening of the descending colon and sigmoid colon, which maybe related to underdistention versus mild colitis of infectious orinflammatory etiology.Scattered colonic diverticula without definite evidence of diverticulitis.THIS IS AN ELECTRONICALLY VERIFIED FINAL REPORT12/22/2022 2:04 PM- Electronically signed by Rock Jerome D.O.PS: PSD: 12/22/2022 2:04 PMT: 12/22/2022 2:04 PMReport ID: [id number] Location: [id number] Current Medications: Current Facility-Administered Medications: acetaminophen (TYLENOL) tablet 650 mg, 650 mg, oral, Q4H PRN, Ondina Blanco MD, 650 mg at 12/29/22 0003 albuterol 2.5 mg /3 mL (0.083 %) nebulizer solution 2.5 mg, 2.5 mg, nebulization, Q4H PRN (RT), Ondina Blanco MD benzonatate (TESSALON) capsule 100 mg, 100 mg, oral, TID PRN, Ondina Blanco MD bisacodyl EC (DULCOLAX EC) tablet 10 mg, 10 mg, oral, Daily PRN, Ondina Blanco MD cetirizine (ZyrTEC) tablet 5 mg, 5 mg, oral, Nightly, Ondina Blanco MD, 5 mg at 12/29/22 0002 clonazePAM (KlonoPIN) tablet 0.5 mg, 0.5 mg, oral, Nightly, Ondina Blanco MD, 0.5 mg at 12/29/22 0003 [Held by Provider] clopidogreL (PLAVIX) tablet 75 mg, 75 mg, oral, Daily, Ondina Blanco MD [Held by Provider] furosemide (LASIX) tablet 40 mg, 40 mg, oral, BID, Ondina Blanco MD magnesium hydroxide (MILK OF MAGNESIA) 80 mg/mL (33.3 mg/mL as elemental magnesium) oral [id number] mL, 30 mL, oral, Daily PRN, Ondina Blanco MD [Held by Provider] metOLazone (ZAROXOLYN) tablet 2.5 mg, 2.5 mg, oral, Every other day, Ondina Blanco MD mineral oil (FLEET MINERAL OIL) enema 133 mL, 1 enema, rectal, Daily PRN, Ondina Blanco MD ondansetron (ZOFRAN) injection 4 mg, 4 mg, intravenous, Q6H PRN, Ondina Blanco MD pantoprazole DR (PROTONIX) extended release tablet 40 mg, 40 mg, oral, Daily, Ondina Blanco MD, 40 mg at 12/29/22 0834 [Held by Provider] potassium chloride ER (KLOR-CON) extended release tablet 40 mEq, 40 mEq, oral, BID, Ondina Blanco MD pramipexole (MIRAPEX) tablet 0.25 mg, 0.25 mg, oral, BID, Ondina Blanco MD, 0.25 mg at 12/29/22 0834 propranoloL (INDERAL) tablet 20 mg, 20 mg, oral, BID, Ondina Blanco MD, 20 mg at 12/29/22 0002 [Held by Provider] rivaroxaban (XARELTO) tablet 20 mg, 20 mg, oral, Daily, Ondina Blanco MD sodium chloride 0.9% flush 0.5-20 mL, 0.5-20 mL, intra-catheter, Q8H, Ondina Blanco MD, 10mL at 12/29/22 0518 sodium chloride 0.9% flush 0.5-20 mL, 0.5-20 mL, intra-catheter, PRN, Ondina Blnaco MD [Held by Provider] sodium chloride 0.9% infusion, 75 mL/hr, intravenous, Continuous, Hakn Moulton MD, Last Rate: 75 mL/hr at 12/28/222121, 75 mL/hr at 12/28/222121 [Held by Provider] spironolactone (ALDACTONE) tablet 25 mg, 25 mg, oral, BID, Ondina Blanco MD Vital signs in last 24 hours: Temp: [36.2 ??C (97.1 ??F)-36.4 ??C (97.6 ??F)] 36.3 ??C (97.3 ??F) Pulse: [69-93] 74 Resp: [13-31] 18 BP: (81-140)/(39-73) 94/46 Physical Exam Constitutional: General: No acute distress. Appearance: Not ill-appearing. HENT: Head: Normocephalic and atraumatic. Mouth/Throat: Mouth: Mucous membranes are moist. Pharynx: Oropharynx is clear. No posterior oropharyngeal erythema. Eyes: General: No scleral icterus. Neck: Thyroid: No thyroid mass or thyromegaly. Trachea: Trachea normal. Cardiovascular: Rate and Rhythm: Normal rate and regular rhythm. Heart sounds: No murmur heard. Appearance: No edema in legs. Pulmonary: Effort: Pulmonary effort is normal. Breath sounds: Normal breath sounds. Abdominal: General: Bowel sounds are normal. Palpations: Abdomen is soft and non-distended. Tenderness: There is mild lower abdominal tenderness. There is no guarding or rebound. Hernia: No hernia is present. Lymphadenopathy: Cervical: No cervical adenopathy. Skin: General: Skin is warm and dry. Coloration: Skin is not jaundiced or pale. Findings: No bruising or rash. Neurological: Mental Status: Pt is alert and oriented to person, place, and time. Psychiatric: Mood and Affect: Mood normal. Behavior: Behavior normal. Gastroenterology Impression/Plan/Recommendations: Colitis - infectious vs inflammatory vs ischemic Diarrhea Intermittent lower abdominal cramping Symptoms for the past 1 month. Stool workup thus far unremarkable. No previous history of colonoscopy, but patient is uninterested at this time; did discuss with patient the risks of not completing acolonoscopy for complete evaluation. Will start patient on Cipro and Flagyl for 7 days. Will followstool tests; will also order fecal count as CRP is elevated. Will hold off on use of antidiarrhealsuntil infectious etiology has been ruled out. Will switch from regular to GI soft diet. Daily CBC and CMP. Continue PPI daily for GI prophylaxis. My collaborating physician is Dr. Delfino Birch-Gastroenterology. Voice recognition software Swing by [employer] was used dictate and transcribe this document. [employer] T[employer] Cutter variances may occur. Despite proofreading, typographical errors may occur. TEO Lord Cosigned by Delfino Birch MD at 12/29/2022 4:16 PM CDT * Paulette Fonseca, ASHLEIGH - 12/29/2022 8:50 AM CDTAssociated Order(s): IP CONSULT TO NUTRITION SERVICES Nutrition Assessment Pt at risk for malnutrition, does not meet ASPEN criteria for malnutrition at this time Reason for Assessment: Screened at Nutrition Risk, Initial Nutrition Assessment, and Consult/Referral Encounter Date: 12/29/22 8:51 AM Nutrition Assessment and Plan: Patient is a 87 y.o. female. Admit Dx: Dehydration [E86.0] Other fatigue [R53.83] Diarrhea, unspecified type [R19.7]. Admitted on 12/28/2022, current LOS is 1 days. Impression: Pt seen for 2 MST. Pt says her weight is normally 184 lbs. She has a hx of CHF, fluid around heart , no swelling in legs or hands noted.Current weight 191 lbs. Per pt's daughter, she's had chronic diarrhea Follow GI tolerance. Current diet order: Adult Diet Regular Pt intake is adequate. PO intakes: 100% X 1 meal. Nutrition Diagnosis 1: Inadequate oral intake Related to: Diarrhea Evidenced by: Patient interview Interventions: Encouragement, Follow up per policy, Initial assessment, Modify diet Monitoring and Evaluation: Discharge plans, Labs, PO intake, GI output Goals: Oral intake to meet 75% estimated nutritional needs by next assessment Recommendations: Modify diet to 2 gm sodium (PMH of CHF) Subjective Nutrition Focused Physical Exam: N/A Wt Readings from Last 10 Encounters: 12/28/22 86.9 kg (191 lb 9.3 oz) 12/23/22 84.2 kg (185 lb 9.6 oz) 12/22/22 84.4 kg (186 lb) 12/08/22 84.4 kg (186 lb) 11/01/22 86.3 kg (190 lb 3.2 oz) 07/25/22 86.2 kg (190 lb) 06/08/22 85.3 kg (188 lb) 04/18/22 89.4 kg (197 lb) 02/18/22 86.2 kg (190 lb) 02/07/22 88.5 kg (195 lb) Adult Malnutrition Scoring Tool (MST) What diet do you follow at home?: BRAT diet Have You Recently Lost Weight Without Trying?: Unsure Have you been eating poorly because of a decreased appetite?: No Malnutrition Screening Tool (MST) Score: 2 Estimated needs: Total Kcal/kg Estimated Needs : 1564.2 based on Kcal/k. Type of Weight Used for Estimated Kcals: Current Total Protein Estimated Needs (gm): 104.28 Protein Needs Based on g/k.2 Type of Weight Used forEstimated Protein : Current. Fluid Needs Based on : (1-2 L/day (CHF)). . Objective Anthropometrics Weight: 86.9 kg (191 lb 9.3 oz) Admission Weight : 86.9 kg Weight Change: 2.98 kg (6.58 lbs) IBW/kg (Calculated) : 45.4 kg Height: 152.4 cm (5') Weight in (lb) to have BMI = 25: 127.7 BMI (Calculated): 37.4 3 Day I/O Summary 12/27 1899 - 12/29 658 In: 695 [P.O.:520; I.V.:175] Out: - Temp: 36.3 ??C (97.3 ??F) Past Medical History: Diagnosis Date Allergic rhinitis [...] Cell Tobacco use 1-2ppd x 35yrs quit Medications and Lab Review: Scheduled Meds: cetirizine, 5 mg, oral, Nightly clonazePAM, 0.5 mg, oral, Nightly [Held by Provider] clopidogreL, 75 mg, oral, Daily [Held by Provider] furosemide, 40 mg, oral, BID [Held by Provider] metOLazone, 2.5 mg, oral, Every other day pantoprazole DR, 40 mg, oral, Daily [Held by Provider] potassium chloride ER, 40 mEq, oral, BID pramipexole, 0.25 mg, oral, BID propranoloL, 20 mg, oral, BID [Held by Provider] rivaroxaban, 20 mg, oral, Daily sodium chloride 0.9%, 0.5-20 mL, intra-catheter, Q8H [Held by Provider] spironolactone, 25 mg, oral, BID Continuous Infusions: [Held by Provider] sodium chloride 0.9%, 75 mL/hr, Last Rate: 75 mL/hr (12/28/222121) Sodium Date Value Ref Range Status 12/29/2022 133 (L) 135 - 145 mmol/L Final Potassium, pl Date Value Ref Range Status 12/29/2022 3.6 3.3 - 4.9 mmol/L Final BUN Date Value Ref Range Status 12/29/2022 39 (H) 6 - 25 mg/dL Final Creatinine Date Value Ref Range Status 12/29/2022 1.85 (H) 0.60 - 1.10 mg/dL Final Phosphorus, pl Date Value Ref Range Status 12/29/2022 3.4 2.3 - 4.5 mg/dL Final Albumin Date Value Ref Range Status 12/29/2022 2.8 (L) 3.5 - 5.0 g/dL Final Magnesium Date Value Ref Range Status 12/29/2022 1.6 1.4 - 2.5 mg/dL Final Calcium Date Value Ref Range Status 12/29/2022 8.8 8.5 - 10.3 mg/dL Final Lab Results Component Value Date HGBA1C 5.7 (H) 10/25/2021 Glucose Date Value Ref Range Status 12/29/2022 80 70 - 199 mg/dL Final Comment: Interpretive Data Fasting glucose >/= 126 mg/dl is diagnostic for diabetes. Fasting is defined as no caloric intake [...] Current interpretive data was last revised 2022. Glucose, POC Date Value Ref Range Status 12/29/2022 75 71 - 98 mg/dL Final Nursing Assessment: Tam Scale Score: 19 Skin Integrity: Bruising Diet Instructions Continue to follow a Low Sodium diet and limit sodium intake to less than 2,000mg per day. Avoid foods that are high sources of sodium, such as fast foods, fried/breaded foods, pickled foods, canned goods, deli meats and gravies/sauces. Use alternatives to season foods such as Mrs. OG and other he rbs. Additional resources are available online from the [employer] [place] [employer] at www.heart.org/en/healthy-living/healthy-eating If poor intakes and/or unintended weight loss occur on discharge follow up with primary care physician. Call [facility] Dietitian's office at [phone] for questions about your diet. If interested in nutrition counseling, ask your doctor for referral and call [phone] to make an appointment. Nutrition Follow-Up : 01/03/[address], PAULETTEN RDN documented in this encounter ED Notes * Hank Moulton MD - 12/28/2022 4:26 PM CDT HPI Chief Complaint Patient presents with Diarrhea HPI Patient is an 87-year-old female with history as noted below, has had diarrhea for 1 month, has been taking Imodium without relief, was seen here 6 days in the emergency department and diagnosed witha colitis, was given antibiotics. Patient states that she did not take the antibiotics because it made her have more diarrhea. She states that she feels generalized fatigue and feels like she is tired towards she can not walk. She denies having any abdominal pain, vomiting or nausea, chest pain or shortness of breath. No active diarrhea at this time. Called her PCP and told to come in to get evaluated to see if she needed IV fluids. Patient notes that she is been drinking Pedialyte and eating bread. 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 Mckenzie, [facility]. Family History Problem Relation Age of Onset Cancer Other Family history of Cancer, unknown; Arthritis Other Family history of Arthritis; Abdominal Aortic Aneurysm Father COPD Father Social History Tobacco Use Smoking status: Former Packs/day: 2.00 Years: 30.00 Pack years: 60.00 Types: Cigarettes Quit date: 1982 Years since quittin.5 Smokeless tobacco: Never Vaping Use Vaping Use: Never used Substance and Sexual Activity Alcohol use: Not Currently Drug use: Never Sexual activity: Defer Social History Social History Narrative Not on file Review of Systems Review of Systems All other systems reviewed and are negative. Physical Exam ED Triage Vitals Temp Pulse Resp BP SpO2 12/28/22 1624 12/28/22 1624 12/28/22 1624 12/28/22 1626 12/28/22 1624 36.4 ??C (97.6 ??F) 78 18 140/73 95 % Temp src Heart Rate Source Patient Position BP Location FiO2 (%) -- -- -- -- -- Height Height Method Weight Weight Method 12/28/22 1624 -- 12/28/22 1624 -- 1.524 m (5') 83.9 kg (185 lb) Physical Exam MDM Medical Decision Making Amount and/or Complexity of Data Reviewed Labs: ordered. Decision-making details documented in ED Course. ECG/medicine tests: ordered. Risk Prescription drug management. Decision regarding hospitalization. Please refer to medically appropriate history and exam required to communicate complexity of problems, MDM, and future medical/legal needs The patient presents with a chronic illness that poses a threat to life or bodily function that mayrequire escalation in level of care. The patient has chronic illnesses that impacted care today as noted above Patient's ED management and disposition as noted in the ED course My independent interpretations of studies performed in the ED are noted in the MDM I reviewed available external records that I was aware of and that were available to me in the emergency department I considered other testing and lab workup and performed necessary and available lab testing and imaging tests to evaluate for life threatening emergencies in the emergency department, and lab testingand imaging studies that were necessary and available to me to evaluate the patient's complaints inthe emergency department were performed Differential diagnosis for this patient is broad and includes but is not limited to:viral gastroenteritis, diabetes, appendicitis, infectious process, food allergy, GERD, bowel obstruction, constipation, malrotation, ileus, viral illness, gastroparesis, colitis, clostridium difficile, enteroinvasive infection. Patient has had chronic diarrhea for 1 month. Seen in the emergency department 6 days ago, labs were stable, no signs of dehydration. Had a CT scan that was concerning for mild colitis. Was given antibiotics which the patient did not take. Called PCP today for re-evaluation because she feels generalized fatigue, they were concerned that she might be dehydrated and sent her to the emergency department for re-evaluation. We will check basic labs, evaluate for any electrolyte derangements, worsening renal function, dehydration. No chest pain or shortness of breath, no nausea or vomiting. No focal neurologic deficits. ED Course as of 12/28/221940 Time: 12/29 1719 Value: Comprehensive metabolic panel(!): Sodium 130(!) Potassium, pl 4.9 Chloride 91(!) CO2 27 Anion gap 13 BUN 44(!) Creatinine 2.12(!) Glucose 89 Calcium 9.7 Bilirubin, total 0.4 Protein, pl 6.9 Albumin 3.5 Alk phos 107 ALT 9 AST 14 Comment: (Reviewed) By: Hank Moulton MD Time: 12/29 1719 Value: CBC with auto differential(!): WBC 8.4 Hgb 13.2 Hct 40.8 Plt 318 MPV 8.8(!) RBC 4.84 MCV 84.3 MCH 27.3 MCHC 32.4 RDW CV 13.7 RDW SD 42.4 NRBC abs 0.00 Comment: (Reviewed) By: Hank Moulton MD Time: 12/29 1719 Value: Differential, auto(!): Neutrophil abs 6.4 Imm gran abs 0.1 Lymphocyte abs 0.8 Monocyte abs 0.9(!) Eosinophil abs 0.2 Basophil abs 0.0 Neutrophil pct 76.0 Imm gran pct 0.8 Lymphocyte pct 9.3 Monocyte pct 10.7 Eosinophil pct 2.7 Basophil pct 0.5 Comment: No WBC, slight increase in Cr from baseline, no significant electrolyte derangements; willgive IVFs and attempt ambulation and re-evaluate for dispo By: Hank Moulton MD Time: 12/28 1856 Comment: Patient still feels generalized fatigue and feels dehydrated, would feel more comfortable with an observation admission for continued IV fluids. We will admit to hospitalist. By: Hank Moulton MD Time: 12/29 1939 Comment: Discussed with Dr. Blanco, accepts admission By: Hank Moulton MD Final diagnoses: Diarrhea, unspecified type Other fatigue Dehydration Hank Moulton MD 12/28/221940 * Kati Mireles RN - 12/28/2022 4:23 PM CDT Patient presents to the Ed with complaints of diarrhea x 1 month, taking imodium without relief, patient states she is so weak she cannot walk Patient denies any abdominal pain or vomiting documented in this encounter Miscellaneous Notes * Plan of Care - Shira Arauz, XU - 12/30/2022 11:56 AM CDT Problem: Health Behavior: Goal: Understanding of discharge needs will improve Outcome: Adequate for Discharge Problem: Lack of Knowledge: Goal: Ability to state ways to decrease the risk of falls will improve Outcome: Adequate for Discharge Problem: Safety: Goal: Will remain free from falls Outcome: Adequate for Discharge Goal: Will remain free from injury from falls Outcome: Adequate for Discharge Goal: Will remain free from falls and injury in home environment Outcome: Adequate for Discharge Problem: Activity: Goal: Ability to return to normal activity level will improve Outcome: Adequate for Discharge Problem: Lack of Knowledge: Goal: Knowledge of the prescribed therapeutic regimen will improve Outcome: Adequate for Discharge Problem: Coping: Goal: Ability to cope will improve Outcome: Adequate for Discharge Problem: Health Behavior: Goal: Identification of resources available to assist in meeting health care needs will improve Outcome: Adequate for Discharge Problem: Sensory: Goal: Pain level will decrease Outcome: Adequate for Discharge Problem: Activity: Goal: Risk for activity intolerance will decrease Outcome: Adequate for Discharge Problem: Lack of Knowledge: Goal: Knowledge of diagnostic tests will improve Outcome: Adequate for Discharge Goal: Knowledge of disease or condition will improve Outcome: Adequate for Discharge Goal: Knowledge of safety precautions will improve Outcome: Adequate for Discharge Goal: Knowledge of the prescribed therapeutic regimen will improve Outcome: Adequate for Discharge Problem: Health Behavior: Goal: Ability to state signs and symptoms to report to health care provider will improve Outcome: Adequate for Discharge Problem: Physical Regulation: Goal: Ability to maintain clinical measurements within normal limits will improve Outcome: Adequate for Discharge Problem: Infection Risk: Goal: Will remain free from infection Outcome: Adequate for Discharge Problem: Safety: Goal: Ability to remain free from injury will improve Outcome: Adequate for Discharge Problem: Self-Care: Goal: Ability to participate in self-care as condition permits will improve Outcome: Adequate for Discharge Problem: Sensory: Goal: Pain level will decrease Outcome: Adequate for Discharge Goal: Ability to develop a pain control plan will improve Outcome: Adequate for Discharge Problem: Skin Integrity: Goal: Risk for impaired skin integrity will decrease Outcome: Adequate for Discharge Problem: Tissue Perfusion: Goal: Risk factors for ineffective tissue perfusion will decrease Outcome: Adequate for Discharge Goals: Clinical Goals for the Shift: Will tolerate food and fluids well. Will be able to provide stool sample for testing and assessment Summary: Patient discharged home with instructions for medication compliance and Dr follow up. Patient and daughter both voiced understanding of instructions. Patient taken home via private car with daughter driving patient back to her home. * Plan of Care - Irma Dos Santos RN - 12/30/2022 5:29 AM CDT Problem: Health Behavior: Goal: Understanding of discharge needs will improve Outcome: Progressing Problem: Safety: Goal: Will remain free from falls Outcome: Progressing Goal: Will remain free from injury from falls Outcome: Progressing Goal: Will remain free from falls and injury in home environment Outcome: Progressing Problem: Coping: Goal: Ability to cope will improve Outcome: Progressing Goals: Clinical Goals for the Shift: No falls Summary: Pt has remained free from falls this shift. Pt received PRN pain medication X2. Pt sleeping on and off throughout shift. Bed alarm on. Call light within reach, pt to call with needs. * Plan of Care - Shira Arauz RN - 12/29/2022 6:28 PM CDT Problem: Health Behavior: Goal: Understanding of discharge needs will improve Outcome: Ongoing Problem: Lack of Knowledge: Goal: Ability to state ways to decrease the risk of falls will improve Outcome: Ongoing Problem: Safety: Goal: Will remain free from falls Outcome: Ongoing Goal: Will remain free from injury from falls Outcome: Ongoing Goal: Will remain free from falls and injury in home environment Outcome: Ongoing Problem: Activity: Goal: Ability to return to normal activity level will improve Outcome: Ongoing Problem: Lack of Knowledge: Goal: Knowledge of the prescribed therapeutic regimen will improve Outcome: Ongoing Problem: Coping: Goal: Ability to cope will improve Outcome: Ongoing Problem: Health Behavior: Goal: Identification of resources available to assist in meeting health care needs will improve Outcome: Ongoing Problem: Sensory: Goal: Pain level will decrease Outcome: Ongoing Problem: Activity: Goal: Risk for activity intolerance will decrease Outcome: Ongoing Problem: Lack of Knowledge: Goal: Knowledge of diagnostic tests will improve Outcome: Ongoing Goal: Knowledge of disease or condition will improve Outcome: Ongoing Goal: Knowledge of safety precautions will improve Outcome: Ongoing Goal: Knowledge of the prescribed therapeutic regimen will improve Outcome: Ongoing Problem: Health Behavior: Goal: Ability to state signs and symptoms to report to health care provider will improve Outcome: Ongoing Problem: Physical Regulation: Goal: Ability to maintain clinical measurements within normal limits will improve Outcome: Ongoing Problem: Infection Risk: Goal: Will remain free from infection Outcome: Ongoing Problem: Safety: Goal: Ability to remain free from injury will improve Outcome: Ongoing Problem: Self-Care: Goal: Ability to participate in self-care as condition permits will improve Outcome: Ongoing Problem: Sensory: Goal: Pain level will decrease Outcome: Ongoing Goal: Ability to develop a pain control plan will improve Outcome: Ongoing Problem: Skin Integrity: Goal: Risk for impaired skin integrity will decrease Outcome: Ongoing Problem: Tissue Perfusion: Goal: Risk factors for ineffective tissue perfusion will decrease Outcome: Ongoing Goals: Clinical Goals for the Shift: Will tolerate food and fluids well. Will be able to provide stool sample for testing and assessment Summary: Patient ate well for breakfast and has ate fair for all other meals. Patient does toleratetransfers to and from the bathroom with 1 assist and use of her walker. Patient has had a few very small BM's this day but has had urine along with stool so specimen could not be obtained. Patient isaware that collection of stool is needed for testing. Patient has not had any diarrhea this day * Initial Assessments - Delilah Ulrich RN - 12/29/2022 11:35 AM CDT CM Initial Assessment Interview Note Information Obtained From: Patient (12/29/221114) Admission Source: home Impression: diarrhea Plan Includes: evaluation Primary Source of Transportation: Does the patient need discharge transport arranged?: No (12/29/221114) Health Insurance Coverage: Medicare and Blue Cross Blue Shield Prescription Coverage: Pharmacy: [facility] Portal to Registered [facility] Sites [facility] Elaine BRUCE [id number] [facility] [address] [place], [place] - [facility] [address] [facility] [address] Primary Care Provider: Pepper Morgan MD Prior to Admission: Functional Status: Independent with ADLs Primary Caregiver: Self Who does the patient or legal guardian want to receive education instruction and discharge plans for after care assistance?: No Caregiver Available Support System: Children, Family members Durable Medical Equipment: Walker (wheeled), Walker (no wheels), Rollator Living Arrangements: Alone Type of Residence: Private residence Steps in home?: No steps inside or outside (12/28/222136) SDOH: Transportation: In the past 12 months, has lack of transportation kept you from medical appointments or from getting medications?: No In the past 12 months, has lack of transportation kept you from meetings, work, or from getting things needed for daily living?: No (12/29/221113) Financial Resource: How hard is it for you to pay for the very basics like food, housing, medical care, and heating?: Not very hard (12/29/221113) Housing: In the last 12 months, was there a time when you were not able to pay the mortgage or rent on time?: No In the last 12 months, how many places have you lived?: 1 In the last 12 months, was there a time when you did not have a steady place to sleep or slept in ashelter (including now)?: No (12/29/221113) Social Connections: In a typical week, how many times do you talk on the phone with family, friends, or neighbors?: More than three times a week How often do you get together with friends or relatives?: Twice a week How often do you attend muslim or advent services?: Never Do you belong to any clubs or organizations such as muslim groups, unions, fraternal or athletic groups, or school groups?: No How often do you attend meetings of the clubs or organizations you belong to?: Never Are you , , , , never , or living with a partner?: (12/29/221113) Food Insecurity: Within the past 12 months, you worried that your food would run out before you got the money to buymore.: Never true Within the past 12 months, the food you bought just didn't last and you didn't have money to get more.: Never true (07/13/23 1114) Patient expects to be Discharged to: Private residence, (12/29/22 1115) Additional Information: Patient lives at home alone in a condo. She is independent with mobility and uses a w/w as needed. Also has a rollator and a walker at home. She is able to drive. Patient has a daughter, granddaughter, and sister in the area for support. Discharge plan is to return to home and her daughter or sister will provide transportation. Will continue to follow. Patient's Identified Problem/Goal Problem: Ensure acute medical needs are met and that patient has a safe discharge plan. Goal: Secure a discharge plan that patient/family are agreeable with and ensure patient has continuum of care. Case management will follow for discharge planning and send referrals as needed. Delilah Ulrich RN * Plan of Care - Irma Dos Santos RN - 12/29/2022 3:41 AM CDT Problem: Safety: Goal: Will remain free from falls Outcome: Progressing Goal: Will remain free from injury from falls Outcome: Progressing Goal: Will remain free from falls and injury in home environment Outcome: Not Progressing Problem: Health Behavior: Goal: Understanding of discharge needs will improve Outcome: Not Progressing Goals: Clinical Goals for the Shift: Decreased Diarrhea Summary: Pt admitted this shift. Pt has had no diarrhea this shift. Pt received PRN pain medicationX1. Bed alarm on. Call light within reach, pt to call with needs. documented in this encounter Plan of Treatment [...] Priority Date/Time Associated Diagnosis Comments EGFR Routine 12/30/2022 6:28 AM CDT DIFFERENTIAL AUTO Routine 12/30/2022 6:2 8 AM CDT CBC WITH AUTO DIFFERENTIAL Routine 12/30/2022 6:28 AM CDT COMPREHENSIVE METABOLIC PANEL Routine 12/30/2022 6:28 AM CDT POCT GLUCOSE DEVICE Routine 12/29/2022 8 :16 AM CDT EGFR Routine 12/29/2022 6:32 AM CDT DIFFERENTIAL AUTO Routine 12/29/2022 6:3 2 AM CDT CBC WITH AUTO DIFFERENTIAL Routine 12/29/2022 6:32 AM CDT MAGNESIUM Routine 12/29/2022 6:32 AM CDT RENAL FUNCTION PANEL Routine 12/29/2022 6:32 AM CDT ERYTHROCYTE SEDIMENTATION RATE Add-On 12/28/2022 11:48 PM CDT CRP (ACUTE PHASE) Add-On 12/28/2022 11: 48 PM CDT XR CHEST 1 VIEW ED Urgent/IP Urgent 12/28/2022 11:37 PM CDT ECG 12-LEAD Routine 12/28/2022 4:31 PM CDT EGFR STAT 12/28/2022 4:30 PM CDT DIFFERENTIAL AUTO STAT 12/28/2022 4:3 0 PM CDT CBC WITH AUTO DIFFERENTIAL STAT 12/28/2022 4:30 PM CDT MAGNESIUM STAT 12/28/2022 4:30 PM CDT COMPREHENSIVE METABOLIC PANEL STAT 12/28/2022 4:30 PM CDT documented in this encounter Results * eGFR (12/30/2022 6:28 AM CDT) eGFR 35 mL/min/1. 73 m2 [facility] ([place]) Comment: Interpretive Data Reference Interval Normal ?>/= [...] interpretive data was last reviewed 2021. Blood 12/30/2022 6:28 AM CDT 12/30/2022 7:45 AM CDT us Emily BRUCE LAB BLOOD ORDERABLES Fin al Result [facility] ([place]) 1 [facility] of [facility] [place], [place] [id number] * Differential, auto (12/30/2022 6:28 AM CDT) Neutrophil abs 4.5 1.7 - 6.5 K/cumm [facility] ([place]) Imm gran abs 0.1 0.0 - 0.1 K/cumm [facility] ([place]) Lymphocyte abs 0.8 0.8 - 3.3 K/cumm [facility] ([place]) Monocyte abs 0.8 0.2 - 0.8 K/cumm [facility] ([place]) Eosinophil abs 0.3 0.0 - 0.5 K/cumm [facility] ([place]) Basophil abs 0.0 0.0 - 0.1 K/cumm [facility] ([place]) Neutrophil pct 69.8 % [facility] ([place]) Comment: Interpretive [...] was last revised on 2017. Lymphocyte pct 13.1 % [facility] ([place]) Comment: Interpretive Data Percent cell count reference ranges are not reported, since discordance with absolute values may lead to misinterpretation of CBC data. Current Interpretive Data was last revised on 2017. Monocyte pct 11.8 % [facility] ([place]) Comment: Interpretive Data Percent cell count reference ranges are not reported, since discordance with absolute values may lead to misinterpretation of CBC data. Current Interpretive Data was last revised on 2017. Eosinophil pct 3.9 % [facility] ([place]) Comment: Interpretive [...] Data was last revised on 2017. Blood 12/30/2022 6:28 AM CDT 12/30/2022 7:48 AM CDT us Emily BRUCE LAB BLOOD ORDERABLES Fin al Result [facility] ([place]) 1 [facility] [place] [address] * (ABNORMAL) Comprehensive metabolic panel (12/30/2022 6:28 AM CDT) Sodium 134(L) 135 - 145 mmol/L [facility] ([place]) Potassium, pl 3.6 3.3 - 4.9 mmol/L [facility] ([place]) Chloride 96(L) 97 - 110 mmol/L [facility] ([place]) CO2 26 22 - 32 mmol/L [facility] ([place]) Anion gap 12 2 - 15 mmol/L [facility] [place]) BUN 29(H) 6 - 25 mg/dL [facility] ([place]) [...] interpretive data was last revised 2022. Calcium 8.8 8.5 - 10.3 mg/dL [facility] ([place]) Bilirubin, total 0.2 0.1 - 1.2 mg/dL [facility] ([place]) Protein, pl 5.8(L) 6.5 - 8.5 g/dL [facility] ([place]) Albumin 2.8(L) 3.5 - 5.0 g/dL [facility] ([place]) Alk phos 86 40 - 130 Units/L [facility] ([place]) ALT 6(L) 7 - 45 Units/L [facility] ([place]) AST 11 10 - 45 Units/L [facility] ([place]) Blood 12/30/2022 6:28 AM CDT 12/30/2022 7:45 AM CDT Emily BRUCE LAB BLOOD ORDERABLES Fin al Result Performing Organization Address City/[facility]/ZIP Co de Phone Number [facility] ([place]) [address] [facility] [place] [address] * (ABNORMAL) CBC with auto differential (12/30/2022 6:28 AM CDT) WBC 6.4 3.8 - 9.9 K/cumm [facility] ([place]) Hgb 11.5(L) 11.9 - 15.5 g/dL [facility] ([place]) Hct 35.6 35.6 - 45.5 % [facility] ([place]) Plt 265 150 - 400 K/cumm [facility] ([place]) MPV 9.4 9.1 - 12.3 fL [facility] ([place]) RBC 4.19 3.90 - 5.20 M/cumm [facility] ([place]) MCV 85.0 81.3 - 96.4 fL [facility] ([place]) MCH 27.4 27.1 - 33.3 pg [facility] ([place]) MCHC 32.3 32.3 - 35.7 g/dL [facility] ([place]) RDW CV 14.1 11.1 - 14.9 % [facility] ([place]) RDW SD 43.4 35.7 - 48.1 fL [facility] ([place]) NRBC abs 0.00 0.00 - 0.01 K/cumm [facility] ([place]) Blood 12/30/2022 6:28 AM CDT 12/30/2022 7:48 AM CDT Emily BRUCE LAB BLOOD ORDERABLES Fin al Result [facility] ([place]) 1 [facility] [place] [address] * POCT glucose (12/29/2022 8:16 AM CDT) Glucose, POC 75 71 - 98 mg/dL [facility] ([place]) Blood 12/29/2022 8:16 AM CDT 12/29/2022 8:16 AM CDT us Chaya Kiser MD LAB POCT ORDERABLES - DEVICE F inal Result [facility] ([place]) 1 [facility] [place] [address] * eGFR (12/29/2022 6:32 AM CDT) eGFR 26 mL/min/1. 73 m2 [facility] ([place]) Comment: Interpretive Data Reference Interval Normal ?>/= [...] interpretive data was last reviewed 2021. Blood 12/29/2022 6:32 AM CDT 12/29/2022 6:57 AM CDT us Ondina Blanco MD LAB BLOOD ORDERABLES Fin al Result [facility] ([place]) 1 [facility] [place] [address] * Differential, auto (12/29/2022 6:32 AM CDT) Neutrophil abs 4.2 1.7 - 6.5 K/cumm [facility] ([place]) Imm gran abs 0.1 0.0 - 0.1 K/cumm [facility] ([place]) Lymphocyte abs 0.8 0.8 - 3.3 K/cumm [facility] ([place]) Monocyte abs 0.8 0.2 - 0.8 K/cumm [facility] ([place]) Eosinophil abs 0.3 0.0 - 0.5 K/cumm [facility] ([place]) Basophil abs 0.1 0.0 - 0.1 K/cumm [facility] ([place]) Neutrophil pct 68.0 % [facility] ([place]) Comment: Interpretive [...] was last revised on 2017. Lymphocyte pct 12.9 % [facility] ([place]) Comment: Interpretive Data Percent cell count reference ranges are not reported, since discordance with absolute values may lead to misinterpretation of CBC data. Current Interpretive Data was last revised on 2017. Monocyte pct 12.9 % [facility] ([place]) Comment: Interpretive Data Percent cell count reference ranges are not reported, since discordance with absolute values may lead to misinterpretation of CBC data. Current Interpretive Data was last revised on 2017. Eosinophil pct 4.4 % [facility] ([place]) Comment: Interpretive Data Percent cell count reference ranges are not reported, since discordance with absolute values may lead to misinterpretation of CBC data. Current Interpretive Data was last revised on 2017. Basophil pct 0.8 % [facility] ([place]) Comment: Interpretive Data Percent cell count reference ranges are not reported, since discordance with absolute values may lead to misinterpretation of CBC data. Current Interpretive Data was last revised on 2017. Blood 12/29/2022 6:32 AM CDT 12/29/2022 6:57 AM CDT Ondina Blanco MD LAB BLOOD ORDERABLES Fin al Result [facility] ([place]) [address] [place] [facility] [place] [address] * Magnesium (12/29/2022 6:32 AM CDT) Magnesium 1.6 1.4 - 2.5 mg/dL [facility] ([place]) Blood 12/29/2022 6:32 AM CDT 12/29/2022 6:57 AM CDT Ondina Blanco MD LAB BLOOD ORDERABLES Fin al Result [facility] ([place]) 1 [facility] [place] [address] * (ABNORMAL) CBC with auto differential (12/29/2022 6:32 AM CDT) WBC 6.1 3.8 - 9.9 K/cumm [facility] ([place]) Hgb 11.4(L) 11.9 - 15.5 g/dL [facility] ([place]) Hct 35.3(L) 35.6 - 45.5 % [facility] ([place]) Plt 252 150 - 400 K/cumm [facility] ([place]) MPV 9.3 9.1 - 12.3 fL [facility] ([place]) RBC 4.19 3.90 - 5.20 M/cumm [facility] ([place]) MCV 84.2 81.3 - 96.4 fL [facility] ([place]) MCH 27.2 27.1 - 33.3 pg [facility] ([place]) MCHC 32.3 32.3 - 35.7 g/dL [facility] ([place]) RDW CV 14.1 11.1 - 14.9 % [facility] ([place] RDW SD 43.1 35.7 - 48.1 fL [facility] ([place]) NRBC abs 0.00 0.00 - 0.01 K/cumm [facility] ([place]) Blood 12/29/2022 6:32 AM CDT 12/29/2022 6:57 AM CDT us Ondina Blanco MD LAB BLOOD ORDERABLES Fin al Result [facility] ([place]) 1 [facility] [place] [address] * (ABNORMAL) Renal function panel (12/29/2022 6:32 AM CDT) Sodium 133(L) 135 - 145 mmol/L [facility] ([place]) Potassium, pl 3.6 3.3 - 4.9 mmol/L [facility] ([place]) Chloride 95(L) 97 - 110 mmol/L [facility] ([place]) CO2 26 22 - 32 mmol/L [facility] ([place]) Anion gap 12 2 - 15 mmol/L [facility] ([place]) BUN 39(H) 6 - 25 mg/dL [facility] ([place]) Creatinine 1.85(H) 0.60 - 1.10 mg/dL [facility] ([place]) Glucose 80 70 - 199 mg/dL [facility] ([place]) Comment: Interpretive Data Fasting [...] interpretive data was last revised 2022. Calcium 8.8 8.5 - 10.3 mg/dL [facility] ([place]) Phosphorus, pl 3.4 2.3 - 4.5 mg/dL [facility] ([place]) Albumin 2.8(L) 3.5 - 5.0 g/dL [facility] ([place]) Blood 12/29/2022 6:32 AM CDT 12/29/2022 6:57 AM CDT Ondina Blanco MD LAB BLOOD ORDERABLES Fin al Result Performing Organization Address City/[facility]/ZIP Co de Phone Number [facility] ([place]) 1 [facility] [place] [address] * Erythrocyte sedimentation rate (12/28/2022 11:48 PM CDT) Erythrocyte sedimentation rate 26 1 - 30 mm/hr [facility] ([place]) Blood 12/28/2022 11:4 8 PM CDT 12/29/2022 Ondina Blanco MD LAB BLOOD ORDERABLES Fin al Result [facility] ([place]) 1 [facility] [place] [address] * (ABNORMAL) CRP (acute phase) (12/28/2022 11:48 PM CDT) CRP 55.4(H) <=10.0 mg/L [facility] ([place]) Blood 12/28/2022 11:4 8 PM CDT 12/29/2022 Ondina Blanco MD LAB BLOOD ORDERABLES Fin al Result [facility] [place]) 5 [facility] [place] [address] * XR Chest 1 View (12/28/2022 11:37 PM CDT) Anatomical Region Laterality Modality Body, Chest N/A Computed Radiogr aphy 12/29/2022 12:0 0 AM CDT Narrative 12/29/2022 12:01 AM CDT EXAM DESCRIPTION: XR CHEST 1 VIEW REASON FOR STUDY: shortness of breath ?? SOB Tonight. ?? TECHNIQUE: ??Portable upright AP view of the chest. COMPARISON: 05/05/2022 FINDINGS: LUNGS AND PLEURA: ??No focal opacity, large effusion, or pneumothorax identified. HEART/MEDIASTINUM: ??Trachea midline. ?? Cardiac silhouette normal in size. Mediastinal contours appear normal. BONES: ??Shoulder arthritis. ?? CHEST WALL: ??Unremarkable. ?? UPPER ABDOMEN: ??Unremarkable. ?? IMPRESSION: No acute abnormality identified. ?? THIS IS AN ELECTRONICALLY VERIFIED FINAL REPORT 12/29/2022 12:01 AM - Electronically signed by ??Bird Paz M.D. AR: ADIS D: ??12/29/2022 12:01 AM T: ??12/29/2022 12:01 AM Report ID: [id number] Reading Location: ??[id number] Procedure Note Bird Paz MD - 12/29/2022 EXAM DESCRIPTION: XR CHEST 1 VIEW REASON FOR STUDY: shortness of breath SOB Tonight. TECHNIQUE: Portable upright AP view of the chest. COMPARISON: 05/05/2022 FINDINGS: LUNGS AND PLEURA: No focal opacity, large effusion, or pneumothorax identified. HEART/MEDIASTINUM: Trachea midline. Cardiac silhouette normal in size. Mediastinal contours appear normal. BONES: Shoulder arthritis. CHEST WALL: Unremarkable. UPPER ABDOMEN: Unremarkable. IMPRESSION: No acute abnormality identified. THIS IS AN ELECTRONICALLY VERIFIED FINAL REPORT 12/29/2022 12:01 AM - Electronically signed by Bird Paz M.D. AR: ADIS Report ID: [id number] Reading Location: [place] [address] us Ondina Blanco MD IMG XR PROCEDURES Final Result * ECG 12 lead (12/28/2022 4:31 PM CDT) 12/28/2022 4:31 PM CDT Narrative [facility] - 12/29/2022 9:57 AM CDT Vent Rate: 70 bpm RR Interval: 854 msec RI Interval: 0 msec QRS Duration: 82 msec QT Interval: 368 msec QTC Interval: 388 msec P-R-T [place]: 0 - 78 - 38 degrees ATRIAL FIBRILLATION ABNORMAL RHYTHM ECG No change from prior EKG Electronically Signed By: Stalin Arauz MD us Hank Moulton MD ECG ORDERABLES Final Result [facility] * eGFR (12/28/2022 4:30 PM CDT) eGFR 22 mL/min/1. 73 m2 [facility] ([place]) Comment: [...] interpretive data was last reviewed 2021. Blood 12/28/2022 4:30 PM CDT 12/28/2022 4:33 PM CDT us Hank Moulton MD LAB BLOOD ORDERABLES Final Resul t [facility] ([place]) 1 [facility] [place] [address] * (ABNORMAL) Differential, auto (12/28/2022 4:30 PM CDT) Neutrophil abs 6.4 1.7 - 6.5 K/cumm [facility] ([place]) Imm gran abs 0.1 0.0 - 0.1 K/cumm [facility] ([place]) Lymphocyte abs 0.8 0.8 - 3.3 K/cumm [facility] ([place]) Monocyte abs 0.9(H) 0.2 - 0.8 K/cumm [facility] ([place]) Eosinophil abs 0.2 0.0 - 0.5 K/cumm [facility] ([place]) Basophil abs 0.0 0.0 - 0.1 K/cumm [facility] ([place]) Neutrophil pct 76.0 % [facility] ([place]) Comment: Interpretive [...] was last revised on 2017. Lymphocyte pct 9.3 % [facility] ([place]) Comment: Interpretive Data Percent cell count reference ranges are not reported, since discordance with absolute values may lead to misinterpretation of CBC data. Current Interpretive Data was last revised on 2017. Monocyte pct 10.7 % [facility] ([place]) Comment: Interpretive Data Percent cell count reference ranges are not reported, since discordance with absolute values may lead to misinterpretation of CBC data. Current Interpretive Data was last revised on 2017. Eosinophil pct 2.7 % [facility] ([place]) Comment: Interpretive [...] Data was last revised on 2017. Blood 12/28/2022 4:30 PM CDT 12/28/2022 4:33 PM CDT Hank Moulton MD LAB BLOOD ORDERABLES Final Resul t Performing Organization Address City/[facility]/ZIP Co de Phone Number [facility] ([place]) 1 [facility] [place] [address] * Magnesium (12/28/2022 4:30 PM CDT) [facility] Magnesium 1.8 1.4 - 2.5 mg/dL [facility] ([place]) Blood 12/28/2022 4:30 PM CDT 12/28/2022 4:33 PM CDT Hank Moulton MD LAB BLOOD ORDERABLES Final Resul t [facility] ([place]) 1 [facility] [place] [address] * (ABNORMAL) Comprehensive metabolic panel (12/28/2022 4:30 PM CDT) Sodium 130(L) 135 - 145 mmol/L [facility] ([place]) Potassium, pl 4.9 3.3 - 4.9 mmol/L [facility] ([place]) Chloride 91(L) 97 - 110 mmol/L [facility] ([place]) CO2 27 22 - 32 mmol/L [facility] ([place]) Anion gap 13 2 - 15 mmol/L [facility] ([place]) BUN 44(H) 6 - 25 mg/dL [facility] ([place]) Creatinine 2.12(H) 0.60 - 1.10 mg/dL [facility] ([place]) Glucose 89 70 - 199 mg/dL [facility] ([place]) [...] 2022. Calcium 9.7 8.5 - 10.3 mg/dL [facility] ([place]) Bilirubin, total 0.4 0.1 - 1.2 mg/dL [facility] ([place]) Protein, pl 6.9 6.5 - 8.5 g/dL [facility] ([place]) Albumin 3.5 3.5 - 5.0 g/dL [facility] ([place]) Alk phos 107 40 - 130 Units/L [facility] ([place]) ALT 9 7 - 45 Units/L [facility] ([place]) AST 14 10 - 45 Units/L [facility] ([place]) Blood 12/28/2022 4:30 PM CDT 12/28/2022 4:33 PM CDT us Hank Moulton MD LAB BLOOD ORDERABLES Final Resul t [facility] ([place]) 1 [facility] [place] [address] * (ABNORMAL) CBC with auto differential (12/28/2022 4:30 PM CDT) WBC 8.4 3.8 - 9.9 K/cumm [facility] ([place]) Hgb 13.2 11.9 - 15.5 g/dL [facility] ([place]) Hct 40.8 35.6 - 45.5 % [facility] ([place]) Plt 318 150 - 400 K/cumm [facility] ([place]) MPV 8.8(L) 9.1 - 12.3 fL [facility] ([place]) RBC 4.84 3.90 - 5.20 M/cumm [facility] ([place]) MCV 84.3 81.3 - 96.4 fL [facility] ([place]) MCH 27.3 27.1 - 33.3 pg [facility] ([place]) MCHC 32.4 32.3 - 35.7 g/dL [facility] ([place]) RDW CV 13.7 11.1 - 14.9 % [facility] ([place]) RDW SD 42.4 35.7 - 48.1 fL [facility] ([place]) NRBC abs 0.00 0.00 - 0.01 K/cumm [facility] ([place]) Blood 12/28/2022 4:30 PM CDT 12/28/2022 4:33 PM CDT us Hank Moulton MD LAB BLOOD ORDERABLES Final Resul t [facility] ([place]) 1 [facility] [place] [address] documented in this encounter Visit Diagnoses Diagnosis Diarrhea, unspecified type- Primary Diarrhea, unspecified type Other fatigue Dehydration DANNY (acute kidney injury) (HCC) Acute colitis Atrial fibrillation (CMS/HCC) (HCC) Atrial fibrillation Chronic heart failure with preserved ejection fraction (CMS/HCC) (HCC) Peripheral arterial disease (HCC) Unspecified peripheral vascular disease documented in this encounter Admitting Diagnoses Diagnosis Diarrhea, unspecified type documented in this encounter Administered Medications Inactive Administered Medications - up to 3 most recent administrations Medication Order MAR Action Action Date Dose Rate Site acetaminophen (TYLENOL) tablet 650 mg 650 mg, oral, Every 4 hours PRN, 1st line for pain, fever, Starting on Mon12/28/22 at 2304 Given 12/30/2022 4:04 AM CDT 650 mg Given 12/29/2022 9:38 PM CDT 650 mg Given 12/29/2022 12:03 AM CDT 650 mg albuterol 2.5 mg /3 mL (0.083 %) nebulizer solution 2.5 mg 2.5 mg, nebulization, Every 4 hours PRN (respite coordinator), wheezing, shortness of breath, Starting on Mon12/28/22 at 2311, This therapy was substituted for albuterol HFA per protocol. benzonatate (TESSALON) capsule 100 mg 100 mg, oral, 3 times daily PRN, cough, Starting on Mon12/29/22 at 0005, Do not crush, chew, cut, dissolve, open or otherwise manipulate tablet/capsule., Indications: CoughIndications:Cough bisacodyl EC (DULCOLAX EC) tablet 10 mg 10 mg, oral, Daily PRN, constipation, If no results 24 hours after milk of magnesia, Starting on Mon12/28/22 at 2348, Do not crush, chew, cut, dissolve, open or otherwise manipulate tablet/capsule. cetirizine (ZyrTEC) tablet 5 mg 5 mg, oral, Nightly, First dose on Mon12/28/22 at 2345 Given 12/29/2022 9:35 PM CDT 5 mg Given 12/29/2022 12:02 AM CDT 5 mg ciprofloxacin (CIPRO) tablet 500 mg 500 mg, oral, Daily (early AM), First dose (after last modification) on Mon12/29/22 at 1400, Dose of Cipro 500 mg po daily adjusted per renal protocol for CrCl=< 30 ml/min (CrCl=16 ml/min) Estimated Creatinine Clearance: 16 mL/min (A) (by C-G 65 yr and older- minimum SCr 0.8 based on SCr of 1.85 mg/dL (H)). , Indications: Abdominal/Pelvic InfectionIndications:Abdominal/Pelvic Infection Given 12/30/2022 6:00 AM CDT 500 mg Given 12/29/2022 2:25 PM CDT 500 mg clonazePAM (KlonoPIN) tablet 0.5 mg 0.5 mg, oral, Nightly, First dose on Mon12/28/22 at 2345 Given 12/29/2022 9:35 PM CDT 0.5 mg Given 12/29/2022 12:03 AM CDT 0.5 mg clopidogreL (PLAVIX) tablet 75 mg 75 mg, oral, Daily, First dose on Mon12/29/22 at 0900 Given 12/30/2022 9:07 AM CDT 75 mg magnesium hydroxide (MILK OF MAGNESIA) 80 mg/mL (33.3 mg/mL as elemental magnesium) oral suspension 30 mL 30 mL, oral, Daily PRN, constipation, Starting on Mon12/28/22 at 2348 metroNIDAZOLE (FLAGYL) tablet 500 mg 500 mg, oral, 3 times daily, First dose on Mon12/29/22 at 1400, Indications: Abdominal/Pelvic InfectionIndications:Abdominal/Pelvic Infection Given 12/30/2022 9:07 AM CDT 500 mg Given 12/29/2022 9:35 PM CDT 500 mg Given 12/29/2022 2:25 PM CDT 500 mg mineral oil (FLEET MINERAL OIL) enema 133 mL 133 mL (1 enema), rectal, Daily PRN, constipation, if no results 24 hours after bisacodyl, Starting on Mon12/28/22 at 2348, Indications: constipationIndications:constipation ondansetron (ZOFRAN) injection 4 mg 4 mg, intravenous, Administer over 2 Minutes, Every 6 hours PRN, nausea, vomiting, Starting on Mon12/28/[address] (PROTONIX) extended release tablet 40 mg 40 mg, oral, Daily, First dose on Mon12/29/22 at 0900, Do not crush, chew, cut, dissolve, open or otherwise manipulate tablet/capsule., Indications: Treatment of Non-Bleeding Gastric DisorderIndications:Treatment of Non-Bleeding Gastric Disorder Given 12/30/2022 9:07 AM CDT 40 mg Given 12/29/2022 8:34 AM CDT 40 mg pramipexole (MIRAPEX) tablet 0.25 mg 0.25 mg, oral, 2 times daily, First dose on Mon12/28/22 at 2345, Indications: Idiopathic Parkinsonism, Restless Legs SyndromeIndications:Idiopathic Parkinsonism,Restless Legs Syndrome Given 12/30/2022 9:08 AM CDT 0.25 mg Given 12/29/2022 9:35 PM CDT 0.25 mg Given 12/29/2022 8:34 AM CDT 0.25 mg propranoloL (INDERAL) tablet 20 mg 20 mg, oral, 2 times daily, First dose on Mon12/28/22 at 2345, Hold for sbp<100 and HR<60 Given 12/30/2022 9:07 AM CDT 20 mg Given 12/29/2022 9:35 PM CDT 20 mg Given 12/29/2022 12:02 AM CDT 20 mg rivaroxaban (XARELTO) tablet 15 mg 15 mg, oral, Daily with dinner, First dose (after last modification) on [place] 12/29/22 at 1800, If patient is eating, administer doses of 15 mg or greater with food. If patient is not eating, still administer dose unless instructed differently by provider. Dose of rivaroxaban adjusted per renal protocol for CrCl=15-50 ml/min (CrCl=16 ml/min) , Indications: atrial fibrillationIndications:atrial fibrillation Given 12/29/2022 5:33 PM CDT 15 mg sodium chloride 0.9% bolus 1,000 mL 1,000 mL, intravenous, Once, On Mon12/28/22 at 1721, For 1 dose Restarted 12/28/2022 7:09 PM CDT New Bag 12/28/2022 5:31 PM CDT 1,000 mL sodium chloride 0.9% bolus 500 mL 500 mL, intravenous, Once, On Mon12/28/22 at 1942, For 1 dose Restarted 12/28/2022 8:58 PM CDT New Bag 12/28/2022 8:35 PM CDT 500 mL sodium chloride 0.9% bolus 500 mL 500 mL, intravenous, at 166.7 mL/hr, Administer over 3 Hours, Once, On Mon12/29/22 at 1615, For 1 dose New Bag 12/29/2022 3:58 PM CDT 500 mL 166.7 mL/hr sodium chloride 0.9% flush 0.5-20 mL 0.5-20 mL, intra-catheter, Every 8 hours, First dose on Mon12/29/22 at 0600, Flush volume based on line type and size. Given 12/30/2022 6:00 AM CDT 10 mL Given 12/29/2022 9:35 PM CDT 10 mL Given 12/29/2022 3:57 PM CDT 10 mL sodium chloride 0.9% flush 0.5-20 mL 0.5-20 mL, intra-catheter, As needed, line care, Starting on Mon12/28/22 at 2348, Flush volume based on line type and size. Flush before and after each use. sodium chloride 0.9% infusion 75 mL/hr, intravenous, Continuous, Starting on Mon12/28/22 at 1859, On hold since Mon12/28/2022 at 2304 until manually unheld New Bag 12/28/2022 9:22 PM CDT 75 mL/hr 75 m L/hr documented in this encounter Discontinued Medications Medication Sig Discontinue Reason Start Date End Da te clonazePAM (KlonoPIN) 0.25 mg disintegrating tabletIndications:Restles s legs syndrome Take 1 tablet (0.25 mg total) by mouth 2 (two) times a day as needed (Restless leg) Stop Taking at Discharge 09/14/2022 12/30/2022 furosemide (LASIX) 40 mg tabletIndications: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 Take 1 tablet (40 mg total) by mouth 2 (two) times a day Stop Taking at Discharge 11/08/2022 12/30/2022 metOLazone (ZAROXOLYN) 2.5 mg tablet Take 1 tablet (2.5 mg total) by mouth every other day Stop Taking at Discharge 11/21/2022 12/30/[address] (PROTONIX) 20 mg EC tabletIndications:Chronic GERD Take 1 tablet (20 mg total) by mouth daily With the largest meal Stop Taking at Discharge 12/08/2022 12/30/2022 documented as of this encounter Active and Recently Administered Medications Times are shown in CDT. Scheduled Medication Order 12/28/2022 12/29/2022 12/30/2022 cetirizine (ZyrTEC) tablet 5 mg 5 mg, oral, Nightly, First dose on Mon12/28/22 at 2345 0002 (Given - Provider: Irma Dos Santos RN)2135 (Given - Provider: Irma Dos Santos RN) ciprofloxacin (CIPRO) tablet 500 mg 500 mg, oral, Daily (early AM), First dose (after last modification) on Mon12/29/22 at 1400, Dose of Cipro 500 mg po daily adjusted per renal protocol for CrCl=< 30 ml/min (CrCl=16 ml/min) Estimated Creatinine Clearance: 16 mL/min (A) (by C-G 65 yr and older- minimum SCr 0.8 based on SCr of 1.85 mg/dL (H)). , Indications: Abdominal/Pelvic Infection 1425 (Given - Provider: Shira Arauz, XU) 0600 (Given - Provider: Irma Dos Santos, RN) clonazePAM (KlonoPIN) tablet 0.5 mg 0.5 mg, oral, Nightly, First dose on Mon12/28/22 at 2345 0003 (Given - Provider: Irma Dos Santos, XU)2135 (Given - Provider: Irma Dos Santos, RN) clopidogreL (PLAVIX) tablet 75 mg 75 mg, oral, Daily, First dose on Mon12/29/22 at 0900 2354 (Held by Provider - Provider: Ondina Blanco MD - Reason: Hold for Procedure) 0900 (Dose Auto Held - Provider: Ondina Blanco MD)1541 (Unheld by Provider - Provider: Chaya Kiser MD) 0907 (Given - Provider: Shira Arauz, XU) furosemide (LASIX) tablet 40 mg 40 mg, oral, 2 times daily, First dose on Mon12/28/22 at 2345, On hold since Mon12/28/2022 at 2304 until manually unheld 2304 (Held by Provider - Provider: Ondina Blanco MD - Reason: Pending Results)2345 (Dose Auto Held) 0900 (Dose Auto Held)2100 (Dose Auto Held) 0900 (Dose Auto Held)1556 (Unheld by Provider - Provider: Automatic Discharge Provider) metOLazone (ZAROXOLYN) tablet 2.5 mg 2.5 mg, oral, Every other day, First dose on Mon12/29/22 at 0900, On hold since Mon12/28/2022 at 2304 until manually unheld 2304 (Held by Provider - Provider: Ondina Blanco MD - Reason: Pending Results) 0900 (Dose Auto Held) 1556 (Unheld by Provider - Provider: Automatic Discharge Provider) metroNIDAZOLE (FLAGYL) tablet 500 mg 500 mg, oral, 3 times daily, First dose on Mon12/29/22 at 1400, Indications: Abdominal/Pelvic Infection 1425 (Given - Provider: Shira Arauz RN)213 (Given - Provider: Irma Dos Santos, XU) 0907 (Given - Provider: Shira Arauz RN) pantoprazole DR (PROTONIX) extended release tablet 40 mg 40 mg, oral, Daily, First dose on Mon12/29/22 at 0900, Do not crush, chew, cut, dissolve, open or otherwise manipulate tablet/capsule., Indications: Treatment of Non-Bleeding Gastric Disorder 0834 (Given - Provider: Shira Arauz RN) 0907 (Given - Provider: Shira Arauz RN) potassium chloride ER (KLOR-CON) extended release tablet 40 mEq 40 mEq, oral, 2 times daily, First dose on Mon12/28/22 at 2345, Do not crush, chew, cut, dissolve, open or otherwise manipulate tablet/capsule., On hold since Mon12/28/2022 at 2304 until manually unheld 2304 (Held by Provider - Provider: Ondina Blanco MD - Reason: Pending Results)2345 (Dose Auto Held) 0900 (Dose Auto Held)2100 (Dose Auto Held) 0900 (Dose Auto Held)1556 (Unheld by Provider - Provider: Automatic Discharge Provider) pramipexole (MIRAPEX) tablet 0.25 mg 0.25 mg, oral, 2 times daily, First dose on Mon12/28/22 at 2345, Indications: Idiopathic Parkinsonism, Restless Legs Syndrome 0012 (Given - Provider: Irma Dos Santos, XU)0834 (Given - Provider: Shira Arauz RN)213 (Given - Provider: Irma Dos Santos, XU) 0908 (Given - Provider: Shira Arauz RN) propranoloL (INDERAL) tablet 20 mg 20 mg, oral, 2 times daily, First dose on Mon12/28/22 at 2345, Hold for sbp<100 and HR<60 0002 (Given - Provider: Irma Dos Santos RN)0838 (Not Given - Provider: Shira Arauz RN - Reason: Other - Comment: hold for blood pressure values per MD request)2135 (Given - Provider: Irma Dos Santos RN) 0907 (Given - Provider: Shira Arauz, XU) rivaroxaban (XARELTO) tablet 15 mg 15 mg, oral, Daily with dinner, First dose (after last modification) on [place] 12/29/22 at 1800, If patient is eating, administer doses of 15 mg or greater with food. If patient is not eating, still administer dose unless instructed differently by provider. Dose of rivaroxaban adjusted per renal protocol for CrCl=15-50 ml/min (CrCl=16 ml/min) , Indications: atrial fibrillation 1733 (Given - Provider: Shira Arauz RN) sodium chloride 0.9% bolus 1,000 mL (COMPLETED) 1,000 mL, intravenous, Once, On Mon12/28/22 at 1721, For 1 dose 1731 (New Bag - Provider: Cora Colon RN)1909 (Restarted - Provider: Kiara Villanueva RN - Comment: new iv started)1999 (Stopped - Provider: Kiara Villanueva RN) sodium chloride 0.9% bolus 500 mL (COMPLETED) 500 mL, intravenous, Once, On Mon12/28/22 at 1942, For 1 dose 2034 (New Bag - Provider: Kiara Villanueva RN)2044 (Paused - Provider: Kiara Villanueva, XU)2057 (Restarted - Provider: Kiara Villanueva, XU)2121 (Stopped - Provider: Kiara Villanueva, XU) sodium chloride 0.9% bolus 500 mL (COMPLETED) 500 mL, intravenous, at 166.7 mL/hr, Administer over 3 Hours, Once, On [place] 12/29/22 at 1615, For 1 dose 1558 (New Bag - Provider: Shira Arauz RN) sodium chloride 0.9% flush 0.5-20 mL 0.5-20 mL, intra-catheter, Every 8 hours, First dose on [place] 12/29/22 at 0600, Flush volume based on line type and size. 0518 (Given - Provider: Irma Dos Santos, XU)1557 (Given - Provider: Shira Arauz, XU)2135 (Given - Provider: Irma Dos Santos, XU) 0600 (Given - Provider: Irma Dos Santos, RN) spironolactone (ALDACTONE) tablet 25 mg 25 mg, oral, 2 times daily, First dose on Mon12/28/22 at 2345, On hold since Mon12/28/2022 at 2304 until manually unheld 2304 (Held by Provider - Provider: Ondina Blanco MD - Reason: Pending Results)2345 (Dose Auto Held) 0900 (Dose Auto Held)2100 (Dose Auto Held) 0900 (Dose Auto Held)1556 (Unheld by Provider - Provider: Automatic Discharge Provider) Continuous Medication Order 12/28/2022 12/29/2022 12/30/2022 sodium chloride 0.9% infusion 75 mL/hr, intravenous, Continuous, Starting on Mon12/28/22 at 1859, On hold since Mon12/28/2022 at 2304 until manually unheld 2121 (New Bag - Provider: Kiara Villanueva RN)2304 (Held by Provider - Provider: Ondina Blanco MD - Reason: Pending Results) 1556 (Due: Stopped)1556 (Unheld by Provider - Provider: Automatic Discharge Provider) PRN Medication Order 12/28/2022 12/29/2022 12/30/2022 acetaminophen (TYLENOL) tablet 650 mg 650 mg, oral, Every 4 hours PRN, 1st line for pain, fever, Starting on Mon12/28/22 at 2304 0003 (Given - Provider: Irma Dos Santos RN)2138 (Given - Provider: Irma Dos Santos, XU) 0404 (Given - Provider: Irma Dos Santos, RN) albuterol 2.5 mg /3 mL (0.083 %) nebulizer solution 2.5 mg 2.5 mg, nebulization, Every 4 hours PRN (respite coordinator), wheezing, shortness of breath, Starting on Mon12/28/22 at 2311, This therapy was substituted for albuterol HFA per protocol. benzonatate (TESSALON) capsule 100 mg 100 mg, oral, 3 times daily PRN, cough, Starting on Mon12/29/22 at 0005, Do not crush, chew, cut, dissolve, open or otherwise manipulate tablet/capsule., Indications: Cough bisacodyl EC (DULCOLAX EC) tablet 10 mg 10 mg, oral, Daily PRN, constipation, If no results 24 hours after milk of magnesia, Starting on Mon12/28/22 at 2348, Do not crush, chew, cut, dissolve, open or otherwise manipulate tablet/capsule. magnesium hydroxide (MILK OF MAGNESIA) 80 mg/mL (33.3 mg/mL as elemental magnesium) oral suspension 30 mL 30 mL, oral, Daily PRN, constipation, Starting on Mon12/28/22 at 2348 mineral oil (FLEET MINERAL OIL) enema 133 mL 133 mL (1 enema), rectal, Daily PRN, constipation, if no results 24 hours after bisacodyl, Starting on Mon12/28/22 at 2348, Indications: constipation ondansetron (ZOFRAN) injection 4 mg 4 mg, intravenous, Administer over 2 Minutes, Every 6 hours PRN, nausea, vomiting, Starting on Mon12/28/22 at 2304 sodium chloride 0.9% flush 0.5-20 mL 0.5-20 mL, intra-catheter, As needed, line care, Starting on Mon12/28/22 at 2348, Flush volume based on line type and size. Flush before and after each use. documented in this encounter Orders Medications Ordered That Alhaji ht Not Have Been Administered Count Last Ordered Date First Ordered Date benzonatate (TESSALON) capsule 100 mg ciprofloxacin (CIPRO) tablet 500 mg 12/29 albuterol 2.5 mg /3 mL (0.08 3 %) nebulizer solution 2.5 mg 1 12/28/2022 albuterol HFA (PROVENTIL HFA ,VENTOLIN HFA,PROAIR HFA) 90 mcg/actuation inhaler 2 puff 1 12/28/2022 bisacodyl EC (DULCOLAX EC) tablet 10 mg 1 0 12/28/2022 furosemide (LASIX) tablet 40 mg 1 magnesium hydroxide (MILK OF MAGNESIA) 80 mg/mL (33.3 mg/mL as elemental magnesium) oral suspension 30 mL 1 12/28/2022 metOLazone (ZAROXOLYN) tablet 2.5 mg 1 12/17 mineral oil (FLEET MINERAL O IL) enema 133 mL 1 12/28/2022 ondansetron (ZOFRAN) injection 4 mg 1 12/28 potassium chloride ER (KLOR- CON) extended release tablet 40 mEq 1 12/28/2022 rivaroxaban (XARELTO) tablet 20 mg 1 2022 sodium chloride 0.9% flush 0.5-20 mL 1 12/17 spironolactone (ALDACTONE) tablet 25 mg 1 0 12/28/2022 Nursing Count Last Ordered Date First Orde red Date DISCHARGE CALL PROVIDER 16 12/30/2022 DISCHARGE INSTRUCTIONS 2 12/30/2022 FOLLOW UP WITH ESTABLISHED PROVIDER 1 12/30 WEIGH PATIENT 1 12/28/2022 Consult Count Last Ordered Date First Orde red Date IP CONSULT TO NUTRITION SERVICES 1 12/29/19 23 Admission Count Last Ordered Date First Orde red Date ADMIT TO INPATIENT 1 12/28/2022 Discharge Count Last Ordered Date First Orde red Date DISCHARGE PATIENT 1 12/30/2022 CORE MEASURES Count Last Ordered Date First Ord ered Date REASON FOR NO VTE PROPHYLAXI S - HOSPITAL ADMISSION - MEDICATIONS 1 12/28/2022 documented in this encounter Care Teams Violin Maker Hand Relationship Specialty Start Date End Date Pepper Morgan MD PCP - General 09/16/16 Hank Garibay MD [address] [facility] [address] WARNER Sheridan [facility] [address] [place] [address] Surgeon Orthopedic Surgery 03/27/17 Jacky Murry MD [address] [facility] [address] WARNER Sheridan [facility] [address] [place] [address] Ophthalmology 03/27/17 Puma Mckenzie MD [address] [facility] [address] WARNER Sheridan [facility] [address] [place] [address] Surgeon Orthopedic Surgery 07/11/19 Neha Jackson, PT Physical Therapist Physical Therapy 12/01/21 Stalin Arauz MD [address] [facility] [address] [place] [address] Consulting Physician Cardiology 12/08/22 Emily Rojas PA [address] [facility] [address] [place] [address] Gastroenterology 12/30/22 documented as of this encounter
--- OUTSIDE RECORDS SUMMARY | 2024-06-18 18:54 | XMS_ITS | Encounter Summary ---
Author Organization [facility] Address [address] [place] [address] Care Team Providers Care Farmworker Fruit Name Role Phone Pepper Morgan MD Primary Care Provider [phone] Hank Garibay MD Unavailable [phone] Jacky Murry MD Unavailable [phone] Puma Mckenzie MD Unavailable [phone] Neha Jackson PT Unavailable Unavailable Reason for Referral * Diagnostic Imaging (Routine) - Closed Specialty Diagnoses / Procedures Referred By Contac t Referred To Contact Diagnoses Peripheral arterial disease (HCC) Procedures US JONATHAN Chandu Matt MD [address] [place] [address] DR [address] [place] [address] Phone: tel: fax: [address] [phone] Referral ID Status Reason Start Date Expiration Date Visits Re quested Visits Authorized [id number] Closed 07/25/2022 08/24/2023 1 1 Reason for Visit * Diagnostic Imaging (Routine) - Closed Specialty Diagnoses / Procedures Referred By Contac t Referred To Contact Diagnoses Peripheral arterial disease (HCC) Procedures US JONATHAN Chandu Matt MD [address] [place] [address] DR KRISHNAN [facility] [place] [address] Phone: tel: fax: [address] [phone] Referral ID Status Reason Start Date Expiration Date Visits Re quested Visits Authorized [id number] Closed 07/25/2022 08/24/2023 1 1 Encounter Details Date Type Department Care Team (Latest Contact Info) Description 10/24/2022 9:59 AM CDT - 10/24/2022 11:59 PM CDT Hospital Encounter [facility] [address] [place] [address] Peripheral arterial disease (HCC) Discharge Disposition: Discharge to home or self care Social History Tobacco Use Types Packs/Day Years Used Date Smoking Tobacco: Former Cigarettes 2 1981 Smokeless Tobacco: Never Alcohol Use Standard Drinks/Week Comments Not Currently 0 (1 standard drink = 0.6 oz pur e alcohol) AUDIT-C Answer Date Recorded Q1: How often do you have a drink containing alc ohol? Monthly or less 11/01/2021 Q2: How many drinks containi ng alcohol do you have on a typical day when you are drinking? 1 or 2 11/01/2021 Q3: How often do you have si x or more drinks on one occasion? 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 Gender Identity Not on file Sexual Orientation Not on file Occupation Industry Job Start Date Job End Date retired Not on file Not on file Not on file documented as of this encounter Medications at Time of Discharge cholecalciferol (VITAMIN D-3) 2000 unit tablet Take 1 tablet (2,000 Units total) by mouth daily albuterol HFA (Proventil HFA) 90 mcg/actuation inhalerIndications: Cough Inhale 2 puffs every 6 (six) hours as needed for wheezing or shortness of breath 6.7 g 2 02/23/20 23 cetirizine (ZyrTEC) 10 mg tabletIndications:A ngioedema, subsequent encounter Take 1 tablet (10 mg total) by mouth nightly 90 tablet 3 2 12/09/19 23 clonazePAM (KlonoPIN) 0.25 mg disintegrating tabletIndications:R estless legs syndrome Take 1 tablet (0.25 mg total) by mouth 2 (two) times a day as needed (Restless leg) 60 tablet 5 3 12/31/19 23 clopidogreL (PLAVIX) 75 mg tablet Take 1 tablet (75 mg total) by mouth daily 90 tablet 3 2 02/08/20 23 felodipine (PLENDIL) 5 mg 24 hr tabletIndications:B enign hypertension Take 1 tablet (5 mg total) by mouth daily 90 tablet 3 12/09/19 23 furosemide (LASIX) 40 mg tabletIndications:B enign hypertension Take 1 tablet (40 mg total) by mouth 2 (two) times a day 180 tablet 3 3 11/09/19 23 metOLazone (ZAROXOLYN) 2.5 mg tablet Take 1 tablet (2.5 mg total) by mouth daily 90 tablet 3 3 11/09/[address] (PROTONIX) 20 mg EC tabletIndications:C hronic GERD Take 1 tablet (20 mg total) by mouth daily With the largest meal 90 tablet 1 3 12/09/19 23 polyethylene glycol (MIRALAX) 17 gram packetIndications:c onstipation Take 1 packet (17 g total) by mouth daily as needed for constipation 02/08/20 24 potassium chloride ER (KLOR-CON) 20 mEq CR tablet Take 2 tablets (40 mEq total) by mouth 2 (two) times a day 120 tablet 11 3 02/07/20 23 pramipexole (MIRAPEX) 0.125 mg tabletIndications:I diopathic Parkinsonism,Restle ss Legs Syndrome Take 1 tablet (0.125 mg total) by mouth 3 (three) times a day Take up to 3 tablets daily starting them when you are having tremor developed in the afternoon or evening and taking up to 3 tablets daily. You do not have to take the medicine the morning if you are not having problem 270 tablet 3 12/09/19 propranoloL (INDERAL) 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:H ereditary essential tremor Take 1 tablet (20 mg total) by mouth 2 (two) times a day as needed (Tremor) 180 tablet 3 12/09/19 23 rivaroxaban (XARELTO) 20 mg tablet Take 1 tablet (20 mg total) by mouth daily 90 tablet 1 3 12/09/19 23 spironolactone (ALDACTONE) 25 mg tablet Take 1 tablet (25 mg total) by mouth 2 (two) times a day 180 tablet 3 3 01/26/20 23 documented as of this encounter Discharge Disposition [...] JONATHAN Schedule Routine, Read Routine (OP Routine) 10/24/2022 10:31 AM CDT Peripheral arterial disease (HCC) documented in this encounter Results * US JONATHAN (10/24/2022 10:31 AM CDT) Anatomical Region Laterality Modality Vascular N/A Ultrasound 10/24/2022 10:1 5 AM CDT Narrative 10/24/2022 12:56 PM CDT [address] [place] [address] Ankle Brachial Index Report Patient Name: CLAUDIA KOO ?? : 1935 (86y 11m) ??Gender: F Study Date: 10/24/2022 10:15:00 AM Cheesemaking Laborer: Order Provider: CHANDU MATT Quality: Adequate Ref.Provider: CHANDU MATT Procedures: Arterial Report: A bilateral extremities ankle/brachial index was performed. Indications: Peripheral Vascular Disease. Conclusions: 1. Kgwo-sh-dhttopsz arterial insufficiency at rest in the right lower extremity with ankle-brachial index 0.69. This is essentially unchanged from prior value of 0.71 in June 2022. Biphasic waveform at the ankle. 2. Mild arterial insufficiency at rest in the left lower extremity with ankle-brachial index 0.77. This represents slight decline compared to prior value of 0.87 in June 2022. Biphasic waveform at the ankle. Findings: Measurements: RightValueLeftValue Electronically Signed By: Chandu Matt MD 2022-10-24 12:56:00 CDT Procedure Note Chandu Matt MD - 10/24/[address] [address] Ankle Brachial Index Report Patient Name: CLAUDIA KOOPatient ID: [id number] : 1935 (86y 11m) Gender: FStudy Date: 10/24/2022 10:15:00 AM Order Provider: CHANDU MATTQuality: Adequate Ref.Provider: CHANDU MATT Procedures: Arterial Report: A bilateral extremities ankle/brachial index wasperformed. Indications: Peripheral Vascular Disease. Conclusions: 1. Gcex-pv-yfgxljgt arterial insufficiency at rest in the right lowerextremity with ankle-brachial index 0.69. This is essentially unchanged from prior valueof 0.71 in June 2022. Biphasic waveform at the ankle. 2. Mild arterial insufficiency at rest in the left lower extremity withankle- brachial index 0.77. This represents slight decline compared to prior value of 0.87in June 2022. Biphasic waveform at the ankle. Findings: Measurements: RightValueLeftValue Electronically Signed By: Chandu Matt MD 2022-10-24 12:56:00 CDT us Chandu Matt MD IMG US PROCEDURES Final Result documented in this encounter Visit Diagnoses Diagnosis Peripheral arterial disease (HCC) Unspecified peripheral vascular disease documented in this encounter Care Teams Farmworker Fruit Relationship Specialty Start Date End Date Pepper Morgan MD PCP - General 09/16/16 Hank Garibay MD 4 [facility] [address] WARNER Sheridan [facility] [address] [place] [address] Surgeon Orthopedic Surgery 03/27/17 Jacky Murry MD 4 [facility] [address] WARNER Sheridan [facility] [address] [place] [address] Ophthalmology 03/27/17 Puma Mckenzie MD 4 [facility] [address] WARNER [address] [place] [address] Surgeon Orthopedic Surgery 07/11/19 Neha Jackson PT Physical Therapist Physical Therapy 12/01/21 documented as of this encounter
--- OUTSIDE RECORDS SUMMARY | 2024-06-18 18:54 | XMS_ITS | Encounter Summary ---
Author Organization [facility] Address [address] [facility] [address] [place] [address] Care Team Providers Care Brim Edge Trimmer Name Role Phone Pepper Morgan MD Primary Care Provider + [phone] Hank Garibay MD Unavailable [phone] Jacky Murry MD Unavailable [phone] Puma Mckenzie MD Unavailable [phone] Neha Jackson PT Unavailable Unavailable Reason for Visit * Reason Onset Date Comments Med Refill 09/13/2022 Encounter Details Date Type Department Care Team (Late st Contact Info) Description 09/13/2022 Telephone [facility] [address] [place] [phone] Pepper Morgan MD [address] [place] [address] Med Refill Social History Tobacco Use Types [...] on file 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 You do not have to take the medicine the morning if you are not having problem 270 tablet 09/14/2022 3 pramipexole (MIRAPEX) 0.125 mg tabletIndications: Idiopathic Parkinsonism,Restl ess Legs Syndrome Take 1 tablet (0.125 mg total) by mouth 3 (three) times a day Take up to 3 tablets daily starting them when you are having tremor developed in the afternoon or evening and taking up to 3 tablets daily. You do not have to take the medicine the morning if you are not having problem 270 tablet 09/13/2022 3 documented in this encounter Miscellaneous Notes * Telephone Encounter - Michelle Torres LPN - 09/13/2022 4:13 PM CDT Triage has done their part for the controlled. Noted, thanks * Telephone Encounter - Lacie Alicea MA - 09/13/2022 4:03 PM CDT On Clonazepam When it was sent there was an end date of 07-25-22 on the script even though it was written for 30 day #60 + 5 refills The script is no longer valid. The Mirapex was sent to mailorder Iwill send this to her local pharmacy as she requested and I will forward back to triage to address controlled. Fyi sig states BID for seizures but dx associated with script is for restless legs, on the clonazepam Dcoers WOOD BUCKER * Telephone Encounter - Michelle Torres LPN - 09/13/2022 1:51 PM CDT Last OV 06/08/22 Upc OV 12/08/22 Last refill 06/19/22 #60, 5 refills Rx pended Please advise ToDawn- please see other below requested medication * Telephone Encounter - Evelyn Dejesus - 09/13/2022 9:14 AM CDT Patient calling to get a refill on pramipexole 0.125mg and clonazepam 0.25mg clonazepam 0.25mg is Please advise DEJAH in [place] Pt cbn: [phone] documented in this encounter Plan of Treatment [...] Restless legs syndrome Restless legs syndrome (RLS) Parkinson's disease (tremor, stiffness, slow motion, unstable posture) (HCC) Paralysis agitans documented in this encounter Discontinued Medications Medication Sig Discontinue Reason Start Date End Da te pramipexole (MIRAPEX) 0.125 mg tabletIndications:Idiop athic Parkinsonism,Restless Legs Syndrome Take 1 tablet (0.125 mg total) by mouth 3 (three) times a day Take up to 3 tablets daily starting them when you are having tremor developed in the afternoon or evening and taking up to 3 tablets daily. You do not have to take the medicine the morning if you are not having problem Reorder 06/19/2022 09/13/2022 pramipexole (MIRAPEX) 0.125 mg tabletIndications:Idiop athic Parkinsonism,Restless Legs Syndrome Take 1 tablet (0.125 mg total) by mouth 3 (three) times a day Take up to 3 tablets daily starting them when you are having tremor developed in the afternoon or evening and taking up to 3 tablets daily. You do not have to take the medicine the morning if you are not having problem Reorder 09/14/2022 09/14/2022 documented as of this encounter Care Teams Brim Edge Trimmer Relationship Specialty Start Date End Date Pepper Morgan MD PCP - General 09/16/16 Hank Garibay MD [address] [facility] [address] WARNER [address] [place] [address] Surgeon Orthopedic Surgery 03/27/17 Jacky Murry MD [address] [facility] [address] WARNER [address] [place] [address] Ophthalmology 03/27/17 Puma Mckenzie MD [address] [facility] [address] WARNER [address] [place] [address] Surgeon Orthopedic Surgery 07/11/19 Neha Jackson, PT Physical Therapist Physical Therapy 12/01/21 documented as of this encounter
--- OUTSIDE RECORDS SUMMARY | 2024-06-18 18:54 | XMS_ITS | Encounter Summary ---
Author Organization [facility] Address [address] [facility] [address] [place] [address] Care Team Providers Care Truck Trailer Final Inspector Name Role Phone Pepper Morgan MD Primary Care Provider [phone] Hank Garibay MD Unavailable [phone] Jacky Murry MD Unavailable [phone] Pmua Mckenzie MD Unavailable [phone] Neha Jackson PT Unavailable Unavailable Stalin Arauz MD Unavailable [phone] Encounter Details Date Type Department Care Team (Late st Contact Info) Description 12/09/2022 Telephone [facility] [address] [place] [phone] Pepper Morgan MD [address] [place] [address] Social History Tobacco Use Types Packs/Day Years [...] on file 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 Arauz and I have been back and forth on our in her office messages about the new medicine Jardiance we talked about yesterday. I do not want her to be alarmed that Dr. Arauz is pulling her back in sooner than January because we both agree it is a good idea for her to start on this medicine and he manages the diuretic pill so as she goes on this medicine he will have to also decrease the diuretics that is why he is calling her and why he is managing the changes I am excited about her improvements that will see with this new Jardiance for her heart failure with normal ejection fraction Dr. Morgan ----- Message ----- From: Stalin Arauz MD Sent: 12/09/2022 9:57 AM CDT To: Hai Dalton MA; Pepper Morgan MD Hai. She is scheduled to see me in January but move her appointment in next 1-2 weeks to discuss medications ----- Message ----- From: Pepper Morgan MD Sent: 12/08/2022 11:07 PM CDT To: Stalin Arauz MD I think it would be safest for you to prescribe this medication because you manage her diuretics and we can probably taper her potassium and diuretics as you go on the Jardiance--I believe she has anappointment with you in January but is interested in trying to start this earlier could you possiblyhave your N.P. see her and begin the medication adjustment process. Sorry for the double message, hope this makes sense Shmuel Morgan ----- Message ----- From: Stalin Arauz MD Sent: 12/08/2022 12:24 PM CDT To: Pepper Morgan MD I am in favor of adding Jardiance if she is able to tolerate it ----- Message ----- From: Pepper Morgan MD Sent: 12/08/2022 11:49 AM CDT To: Stalin Arauz MD documented in [...] on filedocumented in this encounter Care Teams Truck Trailer Final Inspector Relationship Specialty Start Date End Date Pepper Morgan MD PCP - General 09/16/16 Hank Garibay MD [address] [facility] [address] WARNER Sheridan [facility] [address] [place] [address] Surgeon Orthopedic Surgery 03/27/17 Jacky Murry MD [address] [facility] [address] WARNER [place] [facility] [address] [place] [address] Ophthalmology 03/27/17 Puma Mckenzie MD [address] [facility] [address] WARNER Sheridan [facility] [address] [place] [address] Surgeon Orthopedic Surgery 07/11/19 Neha Jackson, PT Physical Therapist Physical Therapy 12/01/21 Stalin Arauz MD [address] [facility] [address] [place] [address] Consulting Physician Cardiology 12/08/22 documented as of this encounter
--- OUTSIDE RECORDS SUMMARY | 2024-06-18 18:54 | XMS_ITS | Encounter Summary ---
Author Organization [facility] Address [address] [facility] [address] [place] [address] Care Team Providers Care Tool Designer Name Role Phone Pepper Morgan MD Primary Care Provider + [phone] Hank Garibay MD Unavailable [phone] Jacky Murry MD Unavailable [phone] Puma Mckenzie MD Unavailable [phone] Neha Jackson PT Unavailable Unavailable Encounter Details Date Type Department Care Team (Late st Contact Info) Description 12/01/2022 Telephone [facility] [address] [place] [id number] Hai Dalton MA Social History Tobacco Use Types Packs/Day Years Used Date Smoking Tobacco: Former Cigarettes 2 1 952 - 1982 Smokeless Tobacco: Never [...] file 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 Cedillo response. Patient to call with questions. * Telephone Encounter - Hai Dalton MA - 12/01/2022 2:44 PM CDT Patient called with c/o stomach cramping and diarrhea and believes the klor con 40meq bid is the cause. Please advise documented in this encounter Plan [...] filedocumented in this encounter Care Teams Tool Designer Relationship Specialty Start Date End Date Pepper Morgan MD PCP - General 09/16/16 Hank Garibay MD [address] [place] [address] DR [place] [address] [address] Surgeon Orthopedic Surgery 10/9/17 Jacky Murry MD [address] [facility] [address] WARNER Sheridan [facility] [place] [address] Ophthalmology 03/27/17 Puma Mckenzie MD [address] [facility] [address] WARNER [place] [address] [place] [address] Surgeon Orthopedic Surgery 07/11/19 Neha Jackson, PT Physical Therapist Physical Therapy 12/01/21 documented as of this encounter
--- OUTSIDE RECORDS SUMMARY | 2024-06-18 18:54 | XMS_ITS | Encounter Summary ---
Author Organization [facility] Medical Group Address [address] [facility] [address] [place] [address] Care Team Providers Care Canvas Marker Name Role Phone Pepper Morgan MD Primary Care Provider + [phone] Hank Garibay MD Unavailable [phone] Jacky Murry MD Unavailable [phone] Puma Mckenzie MD Unavailable [phone] Neha Jackson PT Unavailable Unavailable Reason for Visit * Reason Onset Date Comments Medication Problem 08/04/2022 Encounter Details Date Type Department Care Team (Late st Contact Info) Description 08/04/2022 Telephone [facility] [address] [place] [id number] Pepper Morgan MD [address] [place] [address] Medication Problem Social History Tobacco Use Types Packs/Day Years Used Date Smoking Tobacco: Former Cigarettes 30 1 95 - 1981 Smokeless Tobacco: [...] on file Legal Sex Female 4:33 AM CLEANER WALL Gender Identity Not on file Sexual Orientation Not on file Occupation Industry Job Start Date Job End Date retired Not on file Not on file Not on file documented as of this encounter Miscellaneous Notes * Telephone Encounter - Yvette Zapata RN - 08/04/2022 1:12 PM CST Spoke with pt, she will check with Dr Mamadou pimentel regarding the Rx. She knows to call back if needed. NER WALL * Telephone Encounter - Katy Lopes RN - 08/04/2022 11:35 AM CLEANER WALL Left message to return call. Spironolactone is still on her med list. It is prescribed by Dr. Arauz. NER WALL * Telephone Encounter - Vickie Araujo - 08/04/2022 8:29 AM CST Patient received a letter from [facility] and it said the spironolactone was cancelled. She is wandering why this was cancelled they told her to call her doctor. [facility] cbn: [phone] NER WALL documented in this encounter Plan of Treatment [...] on filedocumented in this encounter Care Teams Canvas Marker Relationship Specialty Start Date End Date Pepper Morgan MD PCP - General 09/16/16 Hank Garibay MD [address] [facility] [address] [place] [address] Surgeon Orthopedic Surgery 03/27/17 Jacky Murry MD [address] [facility] [address] [place] [address] Ophthalmology 03/27/17 Puma Mckenzie MD [address] [facility] [address] [place] [address] Surgeon Orthopedic Surgery 07/11/19 Neha Jackson PT Physical Therapist Physical Therapy 12/01/21 documented as of this encounter
--- OUTSIDE RECORDS SUMMARY | 2024-06-18 18:54 | XMS_ITS | Encounter Summary ---
Author Organization [facility] Healthcare Address [address] [place] [address] Care Team Providers Care Optimization Specialist Name Role Phone Pepper Morgan MD Primary Care Provider + [phone] Hank Garibay MD Unavailable [phone] Jacky Murry MD Unavailable [phone] Puma Mckenzie MD Unavailable [phone] Neha Jackson PT Unavailable Unavailable Encounter Details Date Type Department Care Team (Late st Contact Info) Description 09/23/2022 10:50 AM CDT [address] [address] Chronic heart failure with preserved ejection fraction (CMS/HCC) (HCC) Social History Tobacco Use Types Packs/Day Years Used Date Smoking Tobacco: Former Cigarettes 951981 Smokeless Tobacco: Never Alcohol Use Standard Drinks/Week [...] on file 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 73 m2 [facility] ([place]) Comment: [...] interpretive data was last reviewed 2021. Blood 09/23/2022 11:1 5 AM CDT 09/23/2022 11:21 AM CDT us Stalin Arauz MD LAB BLOOD ORDERABLES Final Resu lt [facility] ([place]) [address] [facility] Department [place] [address] * (ABNORMAL) Basic metabolic panel (09/23/2022 11:15 AM CDT) Sodium 135 135 - 145 mmol/L [facility] ([place]) Potassium, pl 3.5 3.3 - 4.9 mmol/L [facility] ([place] Chloride 94(L) 97 - 110 mmol/L [facility] ([place]) CO2 30 22 - 32 mmol/L [facility] ([place]) Anion gap 11 2 - 15 mmol/L [facility] ([place] BUN 55(H) 8 - 25 mg/dL [facility] ([place]) Creatinine 1.25(H) 0.60 - 1.10 mg/dL [facility] ([place]) Glucose 106 70 - 199 mg/dL [facility] ([place]) Comment: Interpretive Data [...] 2022. Calcium 9.6 8.5 - 10.3 mg/dL [facility] ([place]) Blood 09/23/2022 11:1 5 AM CDT 09/23/2022 11:21 AM CDT us Stalin Arauz MD LAB BLOOD ORDERABLES Final Resu lt [facility] ([place]) [address] [facility] Department [place] [address] * (ABNORMAL) Pro B-type natriuretic peptide (09/23/2022 11:15 AM CDT) NT-proBNP 2,235(H) <=450 pg/mL [facility] ([place]) Comment: Interpretive [...] Interpretive Data Last Revised Date: 2018. Blood 09/23/2022 11:1 5 AM CDT 09/23/2022 11:21 AM CDT us Stalin Arauz MD LAB BLOOD ORDERABLES Final Resu lt [facility] ([place]) [address] [facility] Department [place] [address] documented in this encounter Visit Diagnoses Diagnosis Chronic heart failure with preserved ejection fraction (CMS/HCC) (HCC) documented in this encounter Care Teams Optimization Specialist Relationship Specialty Start Date End Date Pepper Morgan MD PCP - General 09/16/16 Hank Garibay MD [address] [place] [address] [address] [place] [address] Surgeon Orthopedic Surgery 03/27/17 Jacky Murry MD [address] [place] [address] [address] [place] [address] Ophthalmology 03/27/17 Puma Mckenzie MD [address] [facility] [address] [place] [address] [address] Surgeon Orthopedic Surgery 07/11/19 Neha Jackson, PT Physical Therapist Physical Therapy 12/01/21 documented as of this encounter
--- OUTSIDE RECORDS SUMMARY | 2024-06-18 18:54 | XMS_ITS | Encounter Summary ---
Author Organization [facility] Medical Group Address [address] [facility] [address] [place] [address] Care Team Providers Care Institute Director Name Role Phone Pepper Morgan MD Primary Care Provider [phone]- [phone] Hank Garibay MD Unavailable [phone] Jacky Murry MD Unavailable [phone] Puma Mckenzie MD Unavailable [phone] Neha Jackson PT Unavailable Unavailable Stalin Arauz MD Unavailable [phone] Encounter Details Date Type Department Care Team (Late st Contact Info) Description 12/28/2022 Telephone [facility] [address] [place] [id number] Pepper Morgan MD [address] [place] [address] Social History Tobacco Use Types Packs/Day Years [...] points, staff should administer the PHQ-9) 0 12/29/2022 Hunger Vital Sign Answer Date Recorded Within [...] slept in a penitentiary (including now)? 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 Patient is still having diarrhea. Patient could not afford the budesonide yesterday that was ordered for it. Every time patient urinates she has diarrhea. She gets stomach cramps when she has the diarrhea. Patient takes Immodium for the diarrhea. Patient has difficulty urinating and has to cough to urinate. Patient is very weak and is having difficulty walking and requires assistance. She said she also falls asleep sitting up in her chair. Denied any current nausea or vomiting. Denied any constant pain in her stomach or blood in her stools. Denied any fever. Her body is ice cold though. BP 103/41 and pulse 51 before this call. Spoke with NOEL Regalado regarding report. She said if patient is worse she could be more dehydrated than she was last week and patient would need to go to ER for evaluation. Notified Marilyn and she said she does feel patient is worse and looks worse than she was before. Marilyn agreed to take her to the hospital but was unsure which one she will go to at this time. FYI to NOEL Regalado * Telephone Encounter - Vickie Araujo - 12/28/2022 2:33 PM CDT error documented in this encounter Plan of Treatment [...] on filedocumented in this encounter Care Teams Institute Director Relationship Specialty Start Date End Date Pepper Morgan MD PCP - General 09/16/16 Hank Garibay MD [address] [facility] [address] [place] [address] Surgeon Orthopedic Surgery 03/27/17 Jacky Murry MD [address] [facility] [address] [facility] [address] [place] [address] Ophthalmology 03/27/17 Puma Mckenzie MD [address] [facility] [address] [place] [address] Surgeon Orthopedic Surgery 07/11/19 Neha Jackson, PT Physical Therapist Physical Therapy 12/01/21 Stalin Arauz MD [address] [facility] [address] [place] [address] Consulting Physician Cardiology 12/08/22 documented as of this encounter
--- OUTSIDE RECORDS SUMMARY | 2024-06-18 18:54 | XMS_ITS | Encounter Summary ---
Author Organization [facility] Medical Group Address [address] [address] Care Team Providers Care Polishing Wheel Repairer Name Role Phone Pepper Morgan MD Primary Care Provider [phone] Hank Garibay MD Unavailable [phone] Jacky Murry MD Unavailable [phone] Puma Mckenzie MD Unavailable Neha Jackson PT Unavailable Unavailable Reason for Referral * Diagnostic Imaging (Routine) - Closed Specialty Diagnoses / Procedures Referred By Contac t Referred To Contact Diagnoses Peripheral arterial disease (HCC) Procedures [facility] Stalin Arauz MD [address] [place] [address] Phone: tel: fax: [address] [address] Referral ID Status Reason Start Date Expiration Date Visits Re quested Visits Authorized [id number] Closed 07/25/2022 08/24/2023 1 1 NET BUILDER Reason for Visit * Reason Comments Peripheral Artery Disease Encounter Details Date Type Department Care Team (Late st Contact Info) Description 07/25/2022 11:00 AM CABINET BUILDER Office Visit [facility] at [address] [place] [address] Stalin Arauz MD [address] [place] [address] [address] [place] [address] Peripheral arterial disease (CMS/HCC) (HCC) (Primary Dx); 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; Chronic atrial fibrillation (HCC); Chronic heart failure with preserved ejection fraction (CMS/HCC) (HCC) Social History Tobacco Use Types Packs/Day Years Used Date Smoking Tobacco: Former Cigarettes 2 30 1981 Smokeless Tobacco: Never Tobacco Cessation:Counseling Given: [...] on file Legal Sex Female 4:33 AM CABINET BUILDER Gender Identity Not on file Sexual Orientation Not on file Occupation Industry Job Start Date Job End Date retired Not on file Not on file Not on file documented as of this encounter Last Filed Vital Signs Vital Sign Reading Time Taken Comments Blood Pressure 110/66 07/25/2022 10:58 AM CABINET BUILDER Pulse 86 07/25/2022 10:58 AM CABINET BUILDER Temperature - - Respiratory Rate 18 07/25/2022 10:58 AM CABINET BUILDER Oxygen Saturation - - Inhaled Oxygen Concentration - - Weight 86.2 kg (190 lb) 07/25/2022 10:58 AM CABINET BUILDER Height 157.5 cm (5' 2 ) 07/25/2022 10:58 AM CABINET BUILDER Body Mass Index 34.75 07/25/2022 10:58 AM CABINET BUILDER documented in this encounter Ordered Prescriptions Prescription Sig Dispense Quantity Refills Last Filled Start Date End Date spironolactone (ALDACTONE) 25 mg tablet Take 1 tablet (25 mg total) by mouth 2 (two) times a day 180 tablet 3 07/25/2022 3 spironolactone (Aldactone) 25 mg tabletIndications: 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 Take 0.5-1 tablets (12.5-25 mg total) by mouth daily Take 1/2 tablet daily 90 tablet 3 07/25/2022 3 potassium chloride ER (KLOR-CON) 20 mEq CR tablet Take 2 tablets (40 mEq total) by mouth daily 60 tablet 11 07/25/2022 3 documented in this encounter Progress Notes * Stalin Arauz MD - 07/25/2022 11:00 AM CST Cardiology note Reason for Office Visit: Chief Complaint Patient presents with Peripheral Artery Disease History of Present Illness: Tess Benedict is a 86 y.o. female who presents today for new [...] On aldactone and lasix. Insurance now covers xarelto . WT down by 7 lbs Review of Systems Constitutional: Positive for malaise/fatigue and weight loss. Negative for weight gain. Cardiovascular: Positive for leg swelling. Negative for chest pain, claudication, dyspnea on exertion, palpitations and syncope. Respiratory: Negative for cough, [...] 03/1999 ? gout Lymphedema 12/06/2021 Malignant melanoma (CMS/HCC) (HCC) Malignant melanoma; Comments: APO 01/13/2014 - [...] ARTHROPLASTY Left 11/01/2021 Dr. Mckenzie, [facility]. Family History Problem Relation Age of [...] activity: Defer Alcohol Use: Not At Risk Frequency of Alcohol Consumption: Monthly or less [...] or shortness of breath 6.7 g 0 cetirizine (ZyrTEC) 10 mg tablet Take 1 tablet (10 mg total) by mouth nightly 90 tablet 3 cholecalciferol (VITAMIN D-3) 2000 unit tablet Take 2,000 Units by mouth daily clonazePAM (KlonoPIN) 0.25 mg disintegrating tablet Take 1 tablet (0.25 mg total) by mouth 2 (two) times a day as needed for seizures 60 tablet 5 clopidogreL (PLAVIX) 75 mg tablet Take 1 tablet (75 mg total) by mouth daily 90 tablet 3 felodipine (PLENDIL) 5 mg 24 hr tablet Take 1 tablet (5 mg total) by mouth daily 90 tablet 1 furosemide (LASIX) 40 mg tablet Take 1 tablet (40 mg total) by mouth 2 (two) times a day as needed (Leg swelling from heart issue) 180 tablet 1 metOLazone (ZAROXOLYN) 2.5 mg tablet Take 1 tablet (2.5 mg total) by mouth daily [address] (PROTONIX) 20 mg EC tablet Take 1 tablet (20 mg total) by mouth daily With the largest meal 90 tablet 1 polyethylene glycol (MIRALAX) 17 gram packet Take 17 g by mouth daily as needed for constipation pramipexole (MIRAPEX) 0.125 mg tablet Take 1 tablet (0.125 mg total) by mouth 3 (three) times a dayTake up to 3 tablets daily starting them when you are having tremor developed in the afternoon or evening and taking up to 3 tablets daily. You do not have to take the medicine the morning if you arenot having problem 270 tablet 1 propranoloL (INDERAL) 20 mg tablet Take 1 tablet (20 mg total) by mouth 2 (two) times a day as needed (Tremor) 180 tablet 1 rivaroxaban (XARELTO) 20 mg tablet Take 1 tablet (20 mg total) by mouth daily 90 tablet 1 spironolactone (Aldactone) 25 mg tablet Take 0.5-1 tablets (12.5-25 mg total) by mouth daily Take 1/2 tablet daily 90 tablet 1 No current facility-administered medications for this visit. Vitals BP 110/66 (BP Location: Right arm, Patient Position: Sitting) Pulse 86 Resp 18 Ht 157.5 cm (5' 2 ) Wt 86.2 kg (190 lb) LMP (LMP Unknown) BMI 34.75 kg/m?? Vitals: 07/25/22 1058 BP: 110/66 Pulse: 86 Resp: 18 Wt Readings from Last 3 Encounters: 07/25/22 86.2 kg (190 lb) 06/08/22 85.3 kg (188 lb) 04/18/22 89.4 kg (197 lb) Body mass index is 34.75 kg/m??. Physical Exam Constitutional: General: She is not in acute distress. Appearance: Normal appearance. She is well-developed. She is not diaphoretic. HENT: Mouth/Throat: Pharynx: No oropharyngeal exudate. Eyes: Conjunctiva/sclera: Conjunctivae normal. Pupils: Pupils are equal, round, and reactive to light. Neck: Vascular: No carotid bruit or JVD. Trachea: No tracheal deviation. Cardiovascular: Rate and Rhythm: Normal rate. Rhythm irregular. Pulses: Normal pulses and intact distal pulses. Carotid pulses are 2+ on [...] right, both pedal pulses are present by Doppler , PT is absent On the left, Dorsalis pedis is strong [...] 11/01/2021 Lab Results Component Value Date TSH 3.18 11/30/2020 FREET4 1.29 11/30/2020 Lab Results Component Value Date BILIRUBINU Negative 02/07/2017 AST 17 05/23/2022 ALT 13 05/23/2022 ALKPHOS 104 05/23/2022 ALBUMIN 4.0 05/23/2022 Lab Results Component Value Date SODIUM 131 (L) 05/26/2022 POTASSIUM 3.7 05/26/2022 CHLORIDE 92 (L) 05/26/2022 CO2 33 (H) 05/26/2022 ANIONGAP 6 05/26/2022 CK 114 11/09/2021 GLUCOSEUR Negative 10/25/2021 No results found for: BNP Lab Results Component Value Date SODIUM 131 (L) 05/26/2022 SODIUM 133 (L) 05/23/2022 SODIUM 126 (L) 05/05/2022 POTASSIUM 3.7 05/26/2022 POTASSIUM 3.7 05/23/2022 POTASSIUM 3.4 05/05/2022 CHLORIDE 92 (L) 05/26/2022 CHLORIDE 91 (L) 05/23/2022 CHLORIDE 83 (L) 05/05/2022 CO2 33 (H) 05/26/2022 CO2 34 (H) 05/23/2022 CO2 33 (H) 05/05/2022 BUNSER 15 05/26/2022 BUNSER 23 05/23/2022 BUNSER 19 05/05/2022 CREATININE 0.73 05/26/2022 CREATININE 0.75 05/23/2022 CREATININE 0.64 05/05/2022 GFRNAA 81 05/26/2022 GFRNAA 87 05/05/2022 GFRNAA 86 04/28/2022 GLUCOSE 85 05/26/2022 CALCIUM 9.3 05/26/2022 CALCIUM 9.7 05/23/2022 CALCIUM 9.5 05/05/2022 ALBUMIN 4.0 05/23/2022 ALBUMIN 3.5 11/08/2021 ALBUMIN 3.7 10/25/2021 PHOS 3.2 02/14/2017 PHOS 3.9 04/29/2014 Lab Results Component Value Date SODIUM 131 (L) 05/26/2022 POTASSIUM 3.7 05/26/2022 CHLORIDE 92 (L) 05/26/2022 CO2 33 (H) 05/26/2022 ANIONGAP 6 05/26/2022 BUNSER 15 05/26/2022 CREATININE 0.73 05/26/2022 GLUCOSE 85 05/26/2022 CALCIUM 9.3 05/26/2022 BILITOT 0.5 05/23/2022 PROT 6.6 11/08/2021 ALBUMIN 4.0 05/23/2022 ALKPHOS 104 05/23/2022 ALT 13 05/23/2022 AST 17 05/23/2022 Lab Results Component Value Date WBC 6.9 05/23/2022 HGB 14.0 05/23/2022 HCT 44.0 05/23/2022 LABPLAT 400 05/23/2022 MPV 9.4 05/23/2022 RBC 4.95 02/14/2022 MCV 83.8 05/23/2022 MCH 26.7 (L) 05/23/2022 MCHC 31.8 (L) 05/23/2022 RDWCV 13.5 02/14/2022 RDWSD 42.0 02/14/2022 NRBCABS 0.00 02/14/2022 Lab Results Component Value Date CHOL 185 [...] EF >50%). Ankle-brachial index in June 2022 Conclusions: 1. Ugmh-un-kgtlbhxs arterial insufficiency at rest in the right [...] March 2022. Biphasic waveform at the ankle. Diagnoses [...] right 2. Atrial fibrillation, probably chronic on eliquis . Normal noninvasive evaluation including echo and stress test in April 2022 3. Stenosis in abdominal aorta by CTA , not noticed on angiography 4. 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 S/p bilateral hip and knee replacement. 6. Heart failure with preserved ejection fraction. Elevated BNP however with hyponatremia Plan Continue same medication regimen.stop pletal. OK to take xarelto in addition to plavix given recentPTA Continue tight control of blood pressure and cholesterol. Continue diet, exercise, and weight reduction Given lack of improvement with pain in the left lower extremity post revascularization despite improved ankle-brachial index, then no need to intervene on the right lower extremity at the present time given absence of critical limb ischemia. I discussed that the pain is probably neuropathicin nature. Advised use of compression stockings and leg elevation Call if open leg sores . Await BMP/ BNP from today to adjust diuretics . If more leg swelling then would change off felodipine Return to the office in 3 months with follow-up ankle-brachial index Diagnoses and all orders for this visit: Peripheral arterial disease (CMS/HCC) (HCC) (Primary) 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 Chronic atrial fibrillation (HCC) Chronic heart failure with preserved ejection fraction (CMS/HCC) (HCC) Return in about 3 months (around 10/22/2022). 07/25/2022 11:16 AM Stalin Arauz MD Cc:Pepper Morgan MD NET BUILDER documented in this encounter Miscellaneous Notes * Addendum Note - Malena Nguyen - 07/25/2022 11:00 AM CSTAddended by: MALENA NGUYEN on: 07/25/2022 11:37 AM Modules accepted: Orders NET BUILDER * Addendum Note - Malena Nguyen - 07/25/2022 11:00 AM CSTAddended by: MALENA NGUYEN on: 07/25/2022 11:53 AM Modules accepted: Orders NET BUILDER * Addendum Note - Malena Nguyen - 07/25/2022 11:00 AM CSTAddended by: MALENA NGUYEN on: 07/25/2022 12:28 PM Modules accepted: Orders NET BUILDER * Addendum Note - Malena Nguyen - 07/25/2022 11:00 AM CSTAddended by: MALENA NGUYEN on: 07/25/2022 01:38 PM Modules accepted: Orders NET BUILDER documented in this encounter Plan of Treatment [...] of this encounter Results * US JONATHAN (10/24/2022 10:31 AM CDT) Anatomical Region Laterality Modality Vascular N/A Ultrasound 10/24/2022 10:1 5 AM CDT Narrative 10/24/2022 12:56 PM CDT [address] [address] Ankle Brachial Index Report Patient Name: TESS BENEDICT ?? : 1935 (86y 11m) ??Gender: F Study Date: 10/24/2022 10:15:00 AM Medical Fee Clerk: Order Provider: STALIN ARAUZ Quality: Adequate Ref.Provider: STALIN ARAUZ Procedures: Arterial Report: A bilateral extremities ankle/brachial index was performed. Indications: Peripheral Vascular Disease. Conclusions: 1. Dzdg-di-bevwramo arterial insufficiency at rest in the right [...] ankle. Findings: Measurements: RightValueLeftValue Electronically Signed By: Stalin Arauz MD 2022-10-24 12:56:00 CDT Procedure Note Stalin Arauz MD - 10/24/[address] [place] [address] Ankle Brachial Index Report Patient Name: TESS BENEDICTPatient ID: [id number] : 1935 (86y 11m) Gender: FStudy Date: 10/24/2022 10:15:00 AM Order Provider: STALIN ARAUZQuality: Adequate Ref.Provider: STALIN ARAUZ Procedures: Arterial Report: A bilateral extremities ankle/brachial index wasperformed. Indications: Peripheral Vascular Disease. Conclusions: 1. Gyqm-tv-qpipjwvl arterial insufficiency at rest in the right [...] ankle. Findings: Measurements: RightValueLeftValue Electronically Signed By: Stalin Arauz MD 2022-10-24 12:56:00 CDT Stalin Arauz MD [facility] US PROCEDURES Final Result documented in this encounter Visit Diagnoses Diagnosis Peripheral arterial disease (HCC)- Primary Unspecified peripheral vascular disease 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 Essential hypertension, benign Chronic atrial fibrillation (HCC) Atrial fibrillation Chronic heart failure with preserved ejection fraction (CMS/HCC) (HCC) Peripheral arterial disease (HCC) Unspecified peripheral vascular disease documented in this encounter Discontinued Medications Medication Sig Discontinue Reason Start Date End Da te spironolactone (Aldactone) 25 mg tabletIndications: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 Take 0.5-1 tablets (12.5-25 mg total) by mouth daily Take 1/2 tablet daily 06/19/2022 07/25/2022 spironolactone (Aldactone) 25 mg tabletIndications: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 Take 0.5-1 tablets (12.5-25 mg total) by mouth daily Take 1/2 tablet daily Dose adjustment 07/25/2022 07/25/2022 documented as of this encounter Care Teams Polishing Wheel Repairer Relationship Specialty Start Date End Date Pepper Morgan MD PCP - General 09/16/16 Hank Garibay MD [address] [facility] [address] [place] [address] Surgeon Orthopedic Surgery 03/27/17 Jacky Murry MD [address] [place] [address] [address] [place] [address] Ophthalmology 03/27/17 Puma Mckenzie MD [address] [place] [address] [address] [place] [address] Surgeon Orthopedic Surgery 07/11/19 Neha Jackson PT Physical Therapist Physical Therapy 12/01/21 documented as of this encounter
--- OUTSIDE RECORDS SUMMARY | 2024-06-18 18:54 | XMS_ITS | Encounter Summary ---
Author Organization [facility] Medical Group Address [address] [facility] [address] [place] [address] Care Team Providers Care Emergency Medicine Physician Name Role Phone Pepper Morgan MD Primary Care Provider +- [phone] Hank Garibay MD Unavailable [phone] Jacky Murry MD Unavailable [phone] Puma Mckenzie MD Unavailable [phone] Neha Jackson PT Unavailable Unavailable Stalin Arauz MD Unavailable [phone] Encounter Details Date Type Department Care Team (Late st Contact Info) Description 12/22/2022 Telephone [facility] [address] [place] [id number] Pepper Morgan MD [address] [place] [address] Social History Tobacco Use Types Packs/Day Years [...] on file 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 * Telephone Encounter - Katy Lopes RN - 12/22/2022 8:48 AM CDT Called patient regarding diarrhea. She said she has been having diarrhea for 2 weeks. She used the ondansetron and it helped some. Patient took some Immodium last night. She said everything she eats goes through her. She is drinking pedialyte and water but said it is probably not enough. She said she is not urinating as frequently or as much when she goes. Patient complains of feeling weak and having leg cramps. She said she thinks she could be dehydrated. Discussed with patient if she is dehydrated she would need fluids and the office is unable to do that for her but offered appt with FLORAL ASSOCIATE or to go to ER. Patient decided she will have her daughter take her to ER. * Telephone Encounter - rEi Owens - 12/22/2022 8:17 AM CDT Pt continues with Diarrhea. Pt states she has been taking imodium and continues on the BRAT diet. Pt would like to advise. [facility]#[id number] patient documented in this encounter [...] on filedocumented in this encounter Care Teams Emergency Medicine Physician Relationship Specialty Start Date End Date Pepper Morgan MD PCP - General 09/16/16 Hank Garibay MD [address] [facility] [address] WARNER [place]idan [facility] [address] [place] [address] Surgeon Orthopedic Surgery 03/27/17 Jacky Murry MD [address] [facility] [address] WARNER [place]idan [facility] [address] [place] [address] Ophthalmology 03/27/17 Puma Mckenzie MD [address] [facility] [address] [place] [place] [address] Surgeon Orthopedic Surgery 07/11/19 Neha Jackson, PT Physical Therapist Physical Therapy 12/01/21 Stalin Arauz MD [address] [facility] [address] [place] [address] Consulting Physician Cardiology 12/08/22 documented as of this encounter
--- OUTSIDE RECORDS SUMMARY | 2024-06-18 18:54 | XMS_ITS | Encounter Summary ---
Author Organization [facility] Medical Group Address [address] [address] Care Team Providers Care Air Chief Marshal Name Role Phone Pepper Morgan MD Primary Care Provider [phone] Hank Garibay MD Unavailable [phone] Jacky Murry MD Unavailable [phone] Puma Mckenzie MD Unavailable [phone] Neha Jackson PT Unavailable Unavailable Reason for Referral * Physical Therapy (Routine) - Closed Specialty Diagnoses / Procedures Referred By Contnahun t Referred To Contact Physical Therapy Diagnoses Gait disturbance Klaus Deshpande MD [address] [place] [address] [address] [facility] [place] [address] Phone: tel: fax: External Order Referral ID Status Reason Start Date Expiration Date V isits Requested Visits Authorized [id number] Closed Specialty Services Required 11/11/2022 12/11/2023 24 24 Question Answer PTRFR PT Evaluate and Treat Reason for Visit gait disturbance Therapy options discussed with patient? Yes Location provided for therapy services is: Patient requested/Patient preferred Please select the performing region: External Order [171] # of visits: 24 Reason for Visit * Consultation (Routine) - Closed Specialty Diagnoses / Procedures Referred By Olga uribe Referred To Contact Neurology Diagnoses Parkinson disease (HCC) Maude Harris NP [address] [facility] [address] [place] [address] Phone: tel: fax: Klaus Deshpande MD [address] [facility] [address] [facility] [place] [address] Phone: tel: fax: Referral ID Status Reason Start Date Expiration Date V isits Requested Visits Authorized [id number] Closed Specialty Services Required 11/01/2022 12/01/2023 1 1 Encounter Details Date Type Department Care Team (Late st Contact Info) Description 11/11/2022 2:00 PM CDT Office Visit [facility] [address] [facility] [address] [place] [address] Klaus Deshpande MD [address] [facility] [address] [place] [address] Gait disturbance (Primary Dx); Essential tremor; Restless legs syndrome Social History Tobacco [...] on file 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 Gender Identity Not on file Sexual Orientation Not on file Occupation Industry Job Start Date Job End Date retired Not on file Not on file Not on file documented as of this encounter Last Filed Vital Signs Vital Sign Reading Time Taken Comments Blood Pressure 115/79 11/11/2022 1:54 PM CDT Pulse 87 11/11/2022 1:54 PM CDT Temperature - - Respiratory Rate 18 11/11/2022 1:54 PM CDT Oxygen Saturation 96% 11/11/2022 1:54 PM CDT Inhaled Oxygen Concentration - - Weight - - Height - - Body Mass Index - - documented in this encounter Progress Notes * Klaus Deshpande MD - 11/11/2022 2:00 PM CDT Subjective/Objective Patient ID: Tess Benedict is a 86 y.o. female. Chief Complaint I am seeing this 86 y.o. female in consultation requested by Dr. Maude Harris, * for tremor and leg discomfort. HPI Tremor: The tremor has been going on at [...] before the surgery. No Asthma. Leg discomfort: She has discomfort feeling when she sat for prolong time. Her legs jerks. She was pacing around allthe time in the evening. She took Premipexole 0.125 mg/tablet, 3 tablet around 5 pm. It helped. 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 CHF (congestive heart failure) (CMS/HCC) ([facility]) Cough DVT (deep venous thrombosis) (CMS/HCC) ([facility]) 1976 upper [...] as needed (Restless leg) 60 tablet 5 clopidogreL (PLAVIX) 75 mg tablet Take 1 tablet (75 mg total) by mouth daily 90 tablet 3 felodipine (PLENDIL) 5 mg 24 hr tablet Take 1 tablet (5 mg total) by mouth daily 90 tablet 0 furosemide (LASIX) 40 mg tablet Take 1 tablet (40 mg total) by mouth 2 (two) times a day 180 tablet3 metOLazone (ZAROXOLYN) 2.5 mg tablet Take 1 tablet (2.5 mg total) by mouth every other day [address] (PROTONIX) 20 mg [...] a day 120 tablet 11 pramipexole (MIRAPEX) 0.125 mg tablet Take 1 tablet (0.125 mg total) by mouth 3 (three) times a dayTake up to 3 tablets daily starting them when you are having tremor developed in the afternoon or evening and taking up to 3 tablets daily. You do not have to take the medicine the morning if you arenot having problem 270 tablet 0 propranoloL (INDERAL) 20 mg tablet Take 1 tablet (20 mg total) by mouth 2 (two) times a day as needed (Tremor) 180 tablet 0 rivaroxaban (XARELTO) 20 mg tablet Take 1 tablet (20 mg total) by mouth daily 90 tablet 1 spironolactone (ALDACTONE) 25 mg tablet Take 1 tablet (25 mg total) by mouth 2 (two) times a day 180 tablet 3 No current facility-administered medications for this visit. has a current medication list which includes the following prescription(s): albuterol hfa, cetirizine, cholecalciferol, clonazepam, clopidogrel, felodipine, furosemide, metolazone, pantoprazole dr, polyethylene glycol, potassium chloride er, pramipexole, propranolol, rivaroxaban, spironolactone, and [DISCONTINUED] cyclobenzaprine. Family History Problem Relation Age of Onset Cancer Other Family history of Cancer, unknown; Arthritis Other Family history of Arthritis; Abdominal Aortic Aneurysm Father COPD Father Social History Tobacco Use Smoking status: Former Packs/day: 2.00 Years: 30.00 Pack years: 60.00 Types: Cigarettes Quit date: 1981 Years since quittin.4 Smokeless tobacco: Never Substance and Sexual Activity Drug use: Never Sexual activity: Defer Alcohol Use: Not At Risk (11/01/2021) AUDIT-C Frequency of Alcohol Consumption: Monthly or less Average Number of Drinks: 1 or 2 Frequency of Binge Drinking: Never BP 115/79 (BP Location: Right arm, Patient Position: Sitting) Pulse 87 Resp 18 LMP (LMP Unknown) SpO2 96% Physical Exam Mental status: alert, speech fluent, comprehension intact, follow command appropriately Cranial nerve: SUSANNA, corneal reflex present. EOMI, VFF by confrontation method. Facial sensations symmetrical. Face symmetrical. Motor: bulk normal, tone normal, pronator drift negative. Strength 5/5. No abnormal movement. Sensation: LT Normal and symmetrical. Gait: could walk independently. slightly wobbly. Speed is slightly slow. 3-4 steps to turn. Feet lifting slightly low. DTRs: Knee and ankle absent. Mild postural tremor of hands. Slight difficulty to get up. No rigidity. Could walk independently, slightly wobbly. Speed is slightly slow. 3-4 steps to turn. Feet lifting slightly low. Knee and ankle absent. Assessment/Plan I am seeing this 86 y.o. female in consultation requested by Dr. Maude Harris, * for tremor and leg discomfort. Tremor: Physical [...] disease. Instructed patient to call if worse. Restless legs syndrome - continue pramipexole 0.125 mg/tablet, 3 tablets at evening. - discussed side effect including sudden sleep attack and impulse control problem. Instructed patient to talk to physician if she experiences any side effect. Review of investigations: 1. 09/15/2021 CT of head without: No acute intracranial process. 2. 05/23/2022 iron 62 (50-150), TIBC 384 (250-400), iron saturation 16% (16-45). Patient decides to follow up with PCP and follow up with me on as needed basis. documented in this encounter Plan of Treatment Scheduled Referrals Name Type Priority Associated Diagnoses Orde r Schedule Ambulatory referral order to Physical Therapy - Outpatient Referral Routine Gait disturbance Expected: 11/25/2022 (Approximate), Expires: 11/12/2023 documented as of this encounter Goals Goal [...] Diagnosis Gait disturbance- Primary Abnormality of gait Essential tremor Restless legs syndrome Restless legs syndrome (RLS) documented in this encounter Orders Outpatient Referral Count Last Ordered Date Fir st Ordered Date AMB REFERRAL TO NEUROLOGY 1 11/11/2022 documented in this encounter Care Teams Air Chief Marshal Relationship Specialty Start Date End Date Pepper Morgan MD PCP - General 09/16/16 Hank Garibay MD [address] [facility] [address] WARNER [place] [facility] [address] [place] [address] Surgeon Orthopedic Surgery 03/27/17 Jacky Murry MD [address] [facility] [address] WARNER [place] [facility] [address] [place] [address] Ophthalmology 03/27/17 Puma Mckenzie MD [address] [facility] [address] WARNER [place] [facility] [address] [place] [address] Surgeon Orthopedic Surgery 07/11/19 Neha Jackson PT Physical Therapist Physical Therapy 12/01/21 documented as of this encounter
--- OUTSIDE RECORDS SUMMARY | 2024-06-18 18:54 | XMS_ITS | Encounter Summary ---
Author Organization [facility] Medical Group Address [address] [address] Care Team Providers Care Flavor Extractor Name Role Phone Pepper Morgan MD Primary Care Provider + [phone] Hank Garibay MD Unavailable [phone] Jacky Murry MD Unavailable [phone] Puma Mckenzie MD Unavailable [phone] Neha Jackson PT Unavailable Unavailable Stalin Arauz MD Unavailable [phone] Reason for Visit * Reason Onset Date Comments Diarrhea 12/26/2022 Encounter Details Date Type Department Care Team (Late st Contact Info) Description 12/26/2022 Telephone [facility] [address] [place] [address] Pepper Morgan MD [address] [place] [address] Diarrhea Social History Tobacco Use Types Packs/Day Years [...] on file 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 Gender Identity Not on file Sexual Orientation Not on file Occupation Industry Job Start Date Job End Date retired Not on file Not on file Not on file documented as of this encounter Ordered Prescriptions Prescription Sig Dispense Quantity Refills Last Filled Start Date End Date budesonide DR/ER (UCERIS) 9 mg tablet, delayed & ext.releaseIndicat ions:Ulcerative Colitis Take 1 tablet (9 mg total) by mouth daily 30 tablet 12/26/2022 01/06/2023 documented in this encounter Miscellaneous Notes * Telephone Encounter - Katy Lopes RN - 12/26/2022 9:55 AM CDT Called patient and notified her and she voiced understanding. * Telephone Encounter - Sabine Dasilva NP - 12/26/2022 9:01 AM CDT Budesonide is a steroid and can also treat colitis, ok to stop augmentin and start budesonide dailyfor 4 weeks. Sent to [facility] in [place]. This may raise her BP slightly, monitor closely. Call with any changes or concerns. * Telephone Encounter - Vickie Araujo - 12/26/2022 8:06 AM CDT Patient has been having problems with diarrhea and Monday they called something in for her and she cannot take it and this is the third one she has tried. Someone has told her that they have taken this for diarrhea and it helped them. It is budesonide. She doesn't know if they know what she is talking about bu they could not take abx either. Cbn: [phone] Gurdeep Cortes documented in this encounter Plan of Treatment [...] Discontinue Reason Start Date End Da te metroNIDAZOLE (FLAGYL) 500 mg tablet Take 1 tablet (500 mg total) by mouth 3 (three) times a day for 10 days Therapy completed 12/22/2022 12/26/2022 levoFLOXacin (LEVAQUIN) 250 mg tablet Take 1 tablet (250 mg total) by mouth daily for 10 days Therapy completed 12/22/2022 12/26/2022 amoxicillin-clavulanate (AUGMENTIN) 875-125 mg per tablet Take 1 tablet by mouth 2 (two) times a day for 10 days Side effects 12/23/2022 12/26/2022 documented as of this encounter Care Teams Flavor Extractor Relationship Specialty Start Date End Date Pepper Morgan MD PCP - General 09/16/16 Hank Garibay MD [address] [place] [address] DR WARNER [place] [facility] [address] [place] [address] Surgeon Orthopedic Surgery 03/27/17 Jacky Murry MD [address] [place] [address] [address] WARNER [place] [facility] [address] [place] [address] Ophthalmology 03/27/17 Puma Mckenzie MD [address] [facility] [address] [place] [address] [place] [address] Surgeon Orthopedic Surgery 07/11/19 Neha Jackson, PT Physical Therapist Physical Therapy 12/01/21 Stalin Arauz MD [address] [facility] [address] [place] [address] Consulting Physician Cardiology 12/08/22 documented as of this encounter
--- OUTSIDE RECORDS SUMMARY | 2024-06-18 18:54 | XMS_ITS | Encounter Summary ---
Author Organization [facility] Medical Group Address [address] [address] Care Team Providers Care Radiology Assistant Name Role Phone Pepper Morgan MD Primary Care Provider [phone]- [phone] Hank Garibay MD Unavailable [phone] Jacky Murry MD Unavailable [phone] Puma Mckenzie MD Unavailable [phone] Neha Jackson PT Unavailable Unavailable Stalin Arauz MD Unavailable [phone] Reason for Visit * Reason Onset Date Comments daughter would like to speak to nurse 12/28/2022 Encounter Details Date Type Department Care Team (Late st Contact Info) Description 12/28/2022 Telephone [facility] [address] [place] [id number] Pepper Morgan MD [address] [place] [address] daughter would like to speak to nurse Social History Tobacco Use Types Packs/Day Years [...] attend chur ch or druze services? 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 documented in this encounter Plan of Treatment [...] on filedocumented in this encounter Care Teams Radiology Assistant Relationship Specialty Start Date End Date Pepper Morgan MD PCP - General 09/16/16 Hank Garibay MD [address] [facility] [address] WARNER [place] [facility] [address] [place] [address] Surgeon Orthopedic Surgery 03/27/17 Jacky Murry MD [address] [facility] [address] WARNER [place] [facility] [address] [place] [address] Ophthalmology 03/27/17 Puma Mckenzie MD [address] [facility] [address] WARNER [place] [facility] [address] [place] [address] Surgeon Orthopedic Surgery 07/11/19 Neha Jackson, PT Physical Therapist Physical Therapy 12/01/21 Stalin Arauz MD [address] [facility] [address] [place] [address] Consulting Physician Cardiology 12/08/22 documented as of this encounter
--- OUTSIDE RECORDS SUMMARY | 2024-06-18 18:54 | XMS_ITS | Encounter Summary ---
Author Organization [facility] Medical Group Address [address] [facility] [address] [place] [address] Care Team Providers Care Instructional Design Technologist Name Role Phone Pepper Morgan MD Primary Care Provider + [phone] Hank Garibay MD Unavailable [phone] Jacky Murry MD Unavailable [phone] Puma Mckenzie MD Unavailable [phone] Neha Jackson PT Unavailable Unavailable Stalin Montgomery MD Unavailable [phone] Encounter Details Date Type Department Care Team (Late st Contact Info) Description 12/12/2022 Telephone [facility] [address] [place] [address] Luis E [place], RN Social History Tobacco Use [...] on file 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 Gender Identity Not on file Sexual Orientation Not on file Occupation Industry Job Start Date Job End Date retired Not on file Not on file Not on file documented as of this encounter Miscellaneous Notes * Telephone Encounter - Luis E Washington RN - 12/12/2022 9:43 AM CDT Spoke to pt et informed of below KMS result message Pt voices understand et states she has an appt w/Dr Montgomery's office 12-29-22 to further discuss Rx for Jardiance Pt has no further questions @ this time * Telephone Encounter - Luis E Washington RN - 12/12/2022 9:39 AM CDT ----- Message from Pepper Morgan MD sent at 12/10/2022 8:11 PM CDT ----- She does have my chart but she is 87 and I am not sure that she actually goes on my chart so call her with this information KIDNEY FUNCTION IS diminished-- this is a reflection of using diuretics and i think this will get better as she goes through the new changes in medicine that she and dr. montgomery will start with the jardiance and taper off diuretics documented in this encounter Plan of Treatment [...] on filedocumented in this encounter Care Teams Instructional Design Technologist Relationship Specialty Start Date End Date Pepper Morgan MD PCP - General 09/16/16 Hank Garibay MD [address] [facility] [address] [place] [address] Surgeon Orthopedic Surgery 03/27/17 Jacky Murry MD [address] [facility] [address] WARNER [place] [facility] [address] [place] [address] Ophthalmology 03/27/17 Puma Mckenzie MD [address] [facility] [address] [place] [address] Surgeon Orthopedic Surgery 07/11/19 Neha Jackson, PT Physical Therapist Physical Therapy 12/01/21 Stalin Montgomery MD [address] [facility] [address] [place] [address] Consulting Physician Cardiology 12/08/22 documented as of this encounter
--- OUTSIDE RECORDS SUMMARY | 2024-06-18 18:54 | XMS_ITS | Encounter Summary ---
Author Organization [facility] Medical Group Address [address] [facility] [address] [place] [address] Care Team Providers Care Event Manager Name Role Phone Pepper Morgan MD Primary Care Provider Hank Garibay MD Unavailable [phone] Jacky Murry MD Unavailable [phone] Puma Mckenzie MD Unavailable [phone] Neha Jackson PT Unavailable Unavailable Stalin Arauz MD Unavailable [phone] Encounter Details Date Type Department Care Team (Late st Contact Info) Description 12/14/2022 11:10 AM CDT [facility] [address] [place] [address] Social History Tobacco Use Types Packs/Day Years [...] on file 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 Gender Identity Not on file Sexual [...] on filedocumented in this encounter Care Teams Event Manager Relationship Specialty Start Date End Date Pepper Morgan MD PCP - General 09/16/16 Hank Garibay MD [address] [facility] [address] WARNER [place] [facility] [address] [place] [address] Surgeon Orthopedic Surgery 03/27/17 Jacky Murry MD [address] [facility] [address] WARNER [place] [facility] [address] [place] [address] Ophthalmology 03/27/17 Puma Mckenzie MD [address] [facility] [address] WARNER [place] [facility] [address] [place] [address] Surgeon Orthopedic Surgery 07/11/19 Neha Jackson, PT Physical Therapist Physical Therapy 12/01/21 Stalin Arauz MD [address] [facility] [address] [place] [address] Consulting Physician Cardiology 12/08/22 documented as of this encounter
--- OUTSIDE RECORDS SUMMARY | 2024-06-18 18:54 | XMS_ITS | Encounter Summary ---
Author Organization [facility] Medical Group Address [address] [facility] [address] [place] [address] Care Team Providers Care Creative Writing Professor Name Role Phone Pepper Morgan MD Primary Care Provider +- [phone] Hank Garibay MD Unavailable [phone] Jacky Murry MD Unavailable [phone] Puma Mckenzie MD Unavailable [phone] Neha Jackson PT Unavailable Unavailable Stalin Arauz MD Unavailable [phone] Encounter Details Date Type Department Care Team (Late st Contact Info) Description 12/16/2022 Orders Only [facility] [address] [place] [id number] Pepper Morgan MD [address] [place] [address] Diarrhea, unspecified type (Primary Dx) Social History Tobacco Use Types Packs/Day Years Used Date Smoking Tobacco: Former Cigarettes 2 18 07 [id number] Smokeless Tobacco: Never Alcohol Use Standard [...] on file 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 Gender Identity Not on file Sexual Orientation [...] as of this encounter Visit Diagnoses Diagnosis Diarrhea, unspecified type- Primary documented in this encounter Care Teams Creative Writing Professor Relationship Specialty Start Date End Date Pepper Morgan MD PCP - General 09/16/16 Hank Garibay MD [address] [facility] [address] [place] [place] [address] Surgeon Orthopedic Surgery 03/27/17 Jacky Murry MD [address] [facility] [address] [place] [place] [address] Ophthalmology 03/27/17 Puma Mckenzie MD [address] [facility] [address] [place] [place] [address] Surgeon Orthopedic Surgery 07/11/19 Cobbel, Neha, PT Physical Therapist Physical Therapy 12/01/21 Stalin Arauz MD [address] [facility] [address] [address] Consulting Physician Cardiology 12/08/22 documented as of this encounter
--- OUTSIDE RECORDS SUMMARY | 2024-06-18 18:54 | XMS_ITS | Encounter Summary ---
Author Organization [facility] Healthcare Address [address] [place] [address] Care Team Providers Care Brine Tank Operator Name Role Phone Pepper Morgan MD Primary Care Provider + [phone] Hank Garibay MD Unavailable [phone] Jacky Murry MD Unavailable [phone] Puma Mckenzie MD Unavailable [phone] Neha Jackson PT Unavailable Unavailable Encounter Details Date Type Department Care Team (Late st Contact Info) Description 07/25/2022 9:20 AM PRINT BINDING WORKER Lab [address] [address] Shortness of breath Social History Tobacco Use [...] on file Legal Sex Female 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 73 m2 [facility] Comment: [...] interpretive data was last reviewed 2021. Blood 07/25/2022 9:27 AM PRINT BINDING WORKER 07/25/2022 10:15 AM PRINT BINDING WORKER us Stalin Arauz MD LAB BLOOD ORDERABLES Final Resu lt [facility] [address] [facility] Department [place] [address] * (ABNORMAL) Basic metabolic panel (07/25/2022 9:27 AM PRINT BINDING WORKER) Sodium 135 135 - 145 mmol/L [facility] ([place]) Potassium, pl 2.7(C) 3.3 - 4.9 mmol/L [facility] ([place]) Comment:Critical Result call ed to and read back by Mignon Rowland @ Dr. Arauz's office, DATE: 2022-07-25 11:34:47 BY: Ama Kardis Chloride 89(L) 97 - 110 mmol/L [facility] ([place]) CO2 33(H) 22 - 32 mmol/L [facility] ([place]) Anion gap 13 2 - 15 mmol/L [facility] ([place]) BUN 44(H) 8 - 25 mg/dL [facility] ([place]) Creatinine 0.98 0.60 - 1.10 mg/dL [facility] ([place]) Glucose 103 70 - 199 mg/dL [facility] ([place]) [...] interpretive data was last revised 2022. Calcium 10.0 8.5 - 10.3 mg/dL [facility]) Blood 07/25/2022 9:27 AM PRINT BINDING WORKER 07/25/2022 10:15 AM PRINT BINDING WORKER us Stalin Arauz MD LAB BLOOD ORDERABLES Final Resu lt [facility] ([place]) 1 [facility] Department [place] [address] * (ABNORMAL) Pro B-type natriuretic peptide (07/25/2022 9:27 AM PRINT BINDING WORKER) NT-proBNP 2,541(H) <=450 pg/mL [facility] ([place]) Comment: Interpretive Comments: A. Dyspnea in Acute [...] Interpretive Data Last Revised Date: 2018. Blood 07/25/2022 9:27 AM PRINT BINDING WORKER 07/25/2022 10:15 AM PRINT BINDING WORKER us Stalin Arauz MD LAB BLOOD ORDERABLES Final Resu lt [facility] ([place]) [address] [facility] Department [place] [address] documented in this encounter Visit Diagnoses Diagnosis Shortness of breath documented in this encounter Care Teams Brine Tank Operator Relationship Specialty Start Date End Date Pepper Morgan MD PCP - General 09/16/16 Hank Garibay MD [address] [facility] [address] [place] [address] Surgeon Orthopedic Surgery 03/27/17 Jacky Murry MD [address] [facility] [address] [place] [address] Ophthalmology 03/27/17 Puma Mckenzie MD [address] [facility] [address] [place] [facility] [address] [place] [address] Surgeon Orthopedic Surgery 07/11/19 Neha Jackson PT Physical Therapist Physical Therapy 12/01/21 documented as of this encounter
--- OUTSIDE RECORDS SUMMARY | 2024-06-18 18:54 | XMS_ITS | Encounter Summary ---
Author Organization [facility] Medical Group Address [address] [facility] [address] [place] [address] Care Team Providers Care Sign Installer Name Role Phone Pepper Morgan MD Primary Care Provider + [phone] Hank Garibay MD Unavailable [phone] Jacky Murry MD Unavailable [phone] Puma Mckenzie MD Unavailable [phone] Neha Jackson PT Unavailable Unavailable Stalin Arauz MD Unavailable [phone] Reason for Visit * Reason Comments Follow-up er low bp and pulse Encounter Details Date Type Department Care Team (Late st Contact Info) Description 12/23/2022 3:00 PM CDT Office Visit [facility] [address] [place] [address] Sabine Dasilva NP [address] [place] [address] Acute colitis (Primary Dx); 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 Social History Tobacco Use Types [...] on file Legal 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 Gender Identity Not on file Sexual Orientation Not on file Occupation Industry Job Start Date Job End Date retired Not on file Not on file Not on file documented as of this encounter Last Filed Vital Signs Vital Sign Reading Time Taken Comments Blood Pressure 92/60 12/23/2022 2:46 PM CDT Pulse 61 12/23/2022 2:46 PM CDT Temperature 36.3 ??C (97.3 ??F) 12/23/2022 2:46 PM CD T Respiratory Rate 18 12/23/2022 2:46 PM CDT Oxygen Saturation 95% 12/23/2022 2:46 PM CDT Inhaled Oxygen Concentration - - Weight 84.2 kg (185 lb 9.6 oz) 12/23/2022 2:46 P M CDT Height - - Body Mass Index 36.25 11/01/2022 9:28 AM CDT documented in this encounter Patient Instructions * Patient Instructions* Sabine Dasilva NP - 12/23/2022 3:00 PM CDT Follow in 10-14 days for diarrhea. documented in this encounter Ordered Prescriptions Prescription Sig Dispense Quantity Refills Last Filled Start Date End Date amoxicillin-clavul anate (AUGMENTIN) 875-125 mg per tablet Take 1 tablet by mouth 2 (two) times a day for 10 days 20 tablet 12/23/2022 12/26/2022 documented in this encounter Progress Notes * Sabine Dasilva NP - 12/23/2022 3:00 PM CDT Images from the original note were not included. Patient ID: Tess Benedict is a 87 y.o. female. Chief Complaint. Chief Complaint Patient presents with Follow-up er low bp and pulse HPI. Patient is a 87 y.o. female HPI Presents for ER follow up for colitis. Confirmed on CT yesterday, Was started on flagyl and levaquin yesterday by ER. Did not cotton picker levaquin (pharmacy was out of stock). Thinks flagyl is what caused severe diarrhea and N/V last time-it is not on her allergy list. Multiple watery stools since leaving ER yesterday, no blood in stool but now hemorrhoids are bleeding. no melena. Immodium with minima l relief. No fever/chills, abdominal pain, N/V, indigestion, or urinary changes. Past Medical History: Diagnosis Date Allergic rhinitis [...] TOTAL HIP ARTHROPLASTY Left 11/01/2021 Dr. Mckenzie, [facility]. Allergies Allergen Reactions Celecoxib Anaphylaxis Scopolamine [...] Current Medications: Outpatient Encounter Medications as of 12/23/2022 Medication Sig Dispense Refill albuterol HFA (Proventil [...] times a day 180 tablet 3 [DISCONTINUED] amoxicillin-clavulanate (AUGMENTIN) 875-125 mg per tablet Take 1 tablet by mouth 2 (two) times a day for 10 days 20 tablet 0 [DISCONTINUED] cyclobenzaprine (FLEXERIL) 10 mg tablet Take 1 tablet (10 mg total) by mouth nightlyas needed for muscle spasms 30 tablet 0 [DISCONTINUED] levoFLOXacin (LEVAQUIN) 250 mg tablet Take 1 tablet (250 mg total) by mouth daily for 10 days 10 tablet 0 [DISCONTINUED] metroNIDAZOLE (FLAGYL) 500 mg tablet Take 1 tablet (500 mg total) by mouth 3 (three)times a day for 10 days 30 tablet 0 No facility-administered encounter medications on file as of 12/23/2022. Allergies Allergies Allergen Reactions Celecoxib Anaphylaxis Scopolamine [...] chest pain, palpitations and leg swelling. Gastrointestinal: Positive for anal bleeding and diarrhea. Negative for abdominal distention, abdominal pain, blood in stool, constipation, nausea, rectal pain and vomiting. Genitourinary: Negative for difficulty urinating. Musculoskeletal: Negative for arthralgias and myalgias. Skin: Negative for color change. Neurological: Negative for dizziness, syncope, weakness and headaches. Psychiatric/Behavioral: Negative for dysphoric mood and sleep disturbance. The patient is not nervous/anxious. BP 92/60 Pulse 61 Temp 36.3 ??C (97.3 ??F) Resp 18 Wt 84.2 kg (185 lb 9.6 oz) LMP (LMP Unknown) SpO2 95% BMI 36.25 kg/m?? Physical Exam Vitals and nursing note reviewed. Constitutional: General: She is not in acute distress. Appearance: Normal appearance. She is not ill-appearing. HENT: Head: Normocephalic and atraumatic. Mouth/Throat: Mouth: Mucous membranes are moist. Pharynx: Oropharynx is clear. Cardiovascular: Rate and Rhythm: Normal rate and regular rhythm. Heart sounds: Normal heart sounds. Pulmonary: Effort: Pulmonary effort is normal. Breath sounds: Normal breath sounds. Abdominal: General: There is no distension. Palpations: Abdomen is soft. There is no mass. Tenderness: There is no abdominal tenderness. There is no right CVA tenderness, left CVA tenderness, guarding or rebound. Hernia: No hernia is present. Comments: Bowel sounds hyperactive. Genitourinary: Comments: exam deferred per pt request. Musculoskeletal: General: Normal range of motion. Cervical back: Normal range of motion. Skin: General: Skin is warm and dry. Neurological: General: No focal deficit present. Mental Status: She is alert and oriented to person, place, and time. Psychiatric: Mood and Affect: Mood normal. Behavior: Behavior normal. Admission on 12/22/2022, Discharged on 12/22/2022 Component [...] and all orders for this visit: Acute colitis (Primary) Assessment & Plan: Colitis confirmed on CT at ER yesterday. They gave her flagyl and levaquin- which she did not take.Levaquin was unavailable at pharmacy and she has fear of adverse effects from flagyl. Labs unremarkable. No acute findings on exam but states she has had multiple watery diarrhea stools in last 24 hours. Will rx augmentin as directed. [employer] diet, stay hydrated. Continue immodium as needed. ADDENDUM: patient states augmentin made symptoms worse, stop all abx and start budesonide as directed. Follow in 2 weeks. 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 Assessment & Plan: BP soft but stable on exam today, likely related to dehydration from diarrhea, see plan for colitisabove. Return in about 2 weeks (around 01/06/2023) for Recheck. Sabine Dasilva NP Cosigned by Pepper Morgan MD at 12/29/2022 9:41 PM CDT documented in this encounter Miscellaneous Notes * Assessment & Plan Note - Sabine Dasilva NP - 12/28/2022 2:36 PM CDT Associated Problem(s): 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 BP soft but stable on exam today, likely related to dehydration from diarrhea, see plan for colitisabove. * Assessment & Plan Note - Sabine Dasilva NP - 12/28/2022 2:35 PM CDT Associated Problem(s): Acute colitis (Resolved 03/13/2023) Colitis confirmed on CT at ER yesterday. They gave her flagyl and levaquin- which she did not take.Levaquin was unavailable at pharmacy and she has fear of adverse effects from flagyl. Labs unremarkable. No acute findings on exam but states she has had multiple watery diarrhea stools in last 24 hours. Will rx augmentin as directed. [employer] diet, stay hydrated. Continue immodium as needed. ADDENDUM: patient states augmentin made symptoms worse, stop all abx and start budesonide as directed. Follow in 2 weeks. documented in this encounter Plan of Treatment [...] of this encounter Visit Diagnoses Diagnosis Acute colitis- Primary 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 Essential hypertension, benign documented in this encounter Care Teams Sign Installer Relationship Specialty Start Date End Date Pepper Morgan MD PCP - General 09/16/16 Hank Garibay MD [address] [facility] [address] [place] [facility] [address] [place] [address] Surgeon Orthopedic Surgery 03/27/17 Jacky Murry MD [address] [facility] [address] [place] [facility] [address] [place] [address] Ophthalmology 03/27/17 Puma Mckenzie MD [address] [facility] [address] [place] [facility] [address] [place] [address] Surgeon Orthopedic Surgery 07/11/19 Neha Jackson, PT Physical Therapist Physical Therapy 12/01/21 Stalin Arauz MD [address] [facility] [address] [place] [address] Consulting Physician Cardiology 12/08/22 documented as of this encounter
--- OUTSIDE RECORDS SUMMARY | 2024-06-18 18:54 | XMS_ITS | Encounter Summary ---
Author Organization [facility] Address [address] [address] Care Team Providers Care Appeals Specialist Name Role Phone Pepper Morgan MD Primary Care Provider + [phone] Hank Garibay MD Unavailable [phone] Jacky Murry MD Unavailable [phone] Puma Mckenzie MD Unavailable [phone] Neha Jackson PT Unavailable Unavailable Stalin Arauz MD Unavailable [phone] Reason for Visit * Reason Comments Follow-up Encounter Details Date Type Department Care Team (Late st Contact Info) Description 12/08/2022 9:40 AM CDT Office Visit [facility] [address] [place] [address] Pepper Morgan MD [address] [place] [id number] Acute diarrhea (Primary Dx); Restless legs syndrome; Hereditary essential tremor; Chronic heart failure with preserved ejection fraction (CMS/HCC) (HCC); 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; Chronic GERD; Angioedema, subsequent encounter; Knee joint replacement status, bilateral; Gait disturbance; Paroxysmal atrial fibrillation (CMS/HCC) (HCC); Peripheral arterial disease (HCC); Spinal stenosis of lumbar region with neurogenic claudication Social History Tobacco Use Types Packs/Day Years [...] on file Legal Sex Female 4:33 AM [employer] Gender Identity Not on file Sexual Orientation Not on file Occupation Industry Job Start Date Job End Date retired Not on file Not on file Not on file documented as of this encounter Last Filed Vital Signs Vital Sign Reading Time Taken Comments Blood Pressure 110/56 12/08/2022 9:55 AM CDT Pulse 81 12/08/2022 9:55 AM CDT Temperature 36.3 ??C (97.3 ??F) 12/08/2022 9:55 AM CD T Respiratory Rate 16 12/08/2022 9:55 AM CDT Oxygen Saturation 94% 12/08/2022 9:55 AM CDT Inhaled Oxygen Concentration - - Weight 84.4 kg (186 lb) 12/08/2022 9:55 AM CDT Height - - Body Mass Index 36.33 11/01/2022 9:28 AM CDT documented in this encounter Patient Instructions * Patient Instructions* Pepper Morgan MD - 12/08/2022 9:40 AM CDT ORDERS FOR AMS STAFF TO ARRANGE Referrals -Refer back to Dr. Deshpande manage increasing discomfort with her restless leg -Refer Dr. Arauz evaluate for Jardiance for her diastolic heart failure-letter sent to Dr. Arauz and I will be in contact with him to coordinate this consult. 2. Stool enteric pathogens and C diff toxin diagnosis = diarrhea--she took an Imodium and can not poop today give her a poop container to collect at home 3. Chemistry profile, magnesium, free T4, TSH today diagnosis = diarrhea4. [facility], make certain they work on helping her get themstretched for her restless leg pain ORDERS FOR Tess Benedict TO ARRANGE 1. lifestyle changes Follow the outlined of the brats diet and check stool to make sure you did not get a bacterial infection from the restaurant last Monday 2. Body mass index is 36.33 kg/m??. Continue walking to the club house come use recumbent bike and make certain that you stretch afterwards come you will learn strengthening, knee program and stretching in the physical therapy program 2. Medication changes Change the ropinirole = Mirapex 0.125 from 3 tablets at 5:00 p.m. over to 2 tablets at 2:00 p.m. and then the next 2 tablets later in the evening anytime of your choice Return in about 6 months (around 06/09/2023) for Annual physical, Recheck. Orders Placed This Encounter Procedures Stool culture Stool Rectum C. difficile testing Stool Comprehensive metabolic panel Magnesium T4, free TSH Ambulatory referral to Neurology BRING IN ALL PILL BOTTLES TO EVERY OFFICE VISIT YOUR MEDICAL TEAM NEEDS YOU TO ACTIVELY PARTICIPATE IN YOUR HEALTH, in the end GOOD OR BAD OUTCOMESCOUNT ON YOU participating with your medical team. MEDICATION AND SUPPLEMENTS alter our body and health in ways that your doctors needs to take into account along with your symptoms and physical findings. To better understand AND appropriately advise on your current health concerns, ...IT IS ESSENTIAL THAT YOU BRING IN ALL PILL BOTTLES TO EVERY OFFICE VISIT. PLEASE SIGN UP FOR [facility] so that you may have access to your labs and chart documentation IF YOU HAVE TROUBLE WITH THIS PROCESS CALL [phone] FOR THE DIARRHEA Here for the diarrhea trial this brats diet and advance to a restricted diet because you may have dietary intolerance to certain foods usually it is dairy and wheat BRATS Diet advancing slowly to your regular eating: Home made Clear liquids = 1 Liter of water + 1/2 tsp table salt + 1/2 tsp baking soda + 2 TBSP sugar. BRATS diet = Bananas, Rice, Applesauce, egg-Beaters or Soft boiled eggs -- I prefer you avoid the fatty yolks For protein, eat egg- Beaters cooked in the microwave without fat, you may have lean lunchmeat, or lean grilled chicken breast. Drink only clear liquids for the next week = if the liquid is clear you would be able to see newsprint through a clear glass containing this liquid Avoid milk, alcohol, and caffeine. and all diet sugars even in diet soda general advice about figuring out why your having diarrhea------- Look at all food labels and make sure you are not eating anything with these components Diet for diarrhea evaluation: To help figure out why you're having diarrhea we will do a series of foods test. Drink 16 ounces of milk at home and avoid any other food for 2 hours--if you have diarrhea and typical bloating with this milk trial THEN you are lactose intolerant . If you are lactose intolerant you have 2 choices: avoid milk, use Lactaid tablets 2 tabs before anymilk-containing meal. Cheese, ice cream, cottage cheese and other dairy products have limited amounts of lactulose and are usually acceptable. If you pass the milk test and have know lactose problems then I would recommend Consider going on line and starting the Whole 30 diet program: this program will avoid Alcohol, Sugar, Gluten, legumes ( black beans, lentils, Soy, peanuts, peanutbutter etc ), dairy products, preservatives and processed foods. You may learn more on the diet by reading the book or getting recipeson the computer. I recommend eventually advancing into the Mediterranean diet by adding Dairy and Legume classes of foods one month at a time. -------weight reduction will really respond to elimination diet and the diarrhea will resolve Avoid: Gluten = Bread, whole grain bread, pasta noodles, Diet sugars =this means avoid chewing gum, diet soda, pink sugar-blue sugar- yellow sugar and artificial creamers with sugar for your coffee. Lactose = milk, consider limiting the amount of milk at each meal. Most people even with lactose intolerance can tolerate a little bit of cottage cheese, cheese, ice cream, sour cream.. Miscellaneous-Several foods may cause excessive bloating and gassiness and should be eating with caution: These include all fried foods, green peppers, broccoli, cauliflower, head lettuce--avoid these You may have these foods: Veges: Green lettuce, spinach leaves, carrots, tomatoes, avocado, snow peas, sugar snap pea, green beans, mild onions, corn, eggplant,cooked, Sprouts, fresh herbs, cucumber-seeds removed, tomatoes, limited amounts of garlic. Cooked vegetables: brussels sprouts, broccoli, cauliflower, peas, cabbage,any fresh cooked greens, celery, onion, shallots, leeks, beets, all root vegetables. Pasta and carbohydrates: all pastas made with rice, White rice, whole gr rice, potatoes, popcorn, potatoe gnocci, Polenta, oats, gluten free cereals, breads, crackers and chips. Fruits: All fruits berries, grapes, raisins, cherries, pineapple, rhubarb, melons, peaches, nectarines, apricots, pears, citrus, apples, dates, prunes,plums STOP THESE TRIGGER FOODS = foods to stop or limit as much as possible: red meat, dairy, egg yolks, dark poultry meat & skin, fried foods, coconut, oils, shortening, butter, fats, solid chocolate,coffee even decaffeinated coffee, caffeine, alcohol, carbonated beverages, artificial sweeteners PAUSE ON INSOLUBLE FIBER = Whole-wheat, wheat bran, granola, seeds, nuts, GO WITH SOLUABLE FIBERS = rice, rice pasta, gluten free oatmeal, corneal, rice cereals, corn cereals, corn tortillas, corn tortillas,, carrots, quinoa, yams, potatoes, sweet potatoes, squash, rutabaga, parsnips,, beets, pumpkin, mushrooms, chestnuts, avocado, banana, dane, papaya, applesauce. makethese the basis of all meals and snacks. Keep these foods first on an empty stomach. These foods resolve both diarrhea and constipation and they are safe foods. [id number]-src-ovqbawv Tea such as peppermint tea or Fennel Seed Tea may be helpful and a good substitutefor coffee and caffeinated beverages Consider purchasing a Cook Book = Eating for IBS written by Eri Stephen documented in this encounter Ordered Prescriptions Prescription Sig Dispense Quantity Refills Last Filled Start Date End Date cetirizine (ZyrTEC) 10 mg tabletIndications: Angioedema, subsequent encounter Take 1 tablet (10 mg total) by mouth nightly 90 tablet 3 12/08/2022 clonazePAM (KlonoPIN) 0.5 mg tablet Take 1 tablet (0.5 mg total) by mouth nightly 30 tablet 5 12/08/2022 3 clonazePAM (KlonoPIN) 0.5 mg tablet Take 1 tablet (0.5 mg total) by mouth nightly 30 tablet 5 12/08/2022 3 clonazePAM (KlonoPIN) 0.5 mg tablet Take 1 tablet (0.5 mg total) by mouth nightly 30 tablet 5 12/08/2022 3 rivaroxaban (XARELTO) 20 mg tablet Take 1 tablet (20 mg total) by mouth daily 30 tablet 11 12/08/2022 4 propranoloL (INDERAL) 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: Hereditary essential tremor Take 1 tablet (20 mg total) by mouth 2 (two) times a day as needed (Tremor) 180 tablet 2 12/08/2022 4 pramipexole (MIRAPEX) 0.25 mg tabletIndications: Idiopathic Parkinsonism,Restl ess Legs Syndrome Take 1 tablet (0.25 mg total) by mouth 2 (two) times a day 180 tablet 2 12/08/[address] (PROTONIX) 20 mg EC tabletIndications: Chronic GERD Take 1 tablet (20 mg total) by mouth daily With the largest meal 90 tablet 2 12/08/2022 3 felodipine (PLENDIL) 5 mg 24 hr tabletIndications: 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 Take 1 tablet (5 mg total) by mouth daily 90 tablet 2 12/08/2022 4 documented in this encounter Progress Notes * Pepper Morgan MD - 12/08/2022 9:40 AM CDT Images from the original note were not included. Patient ID: Tess Benedict is a 87 y.o. female. Chief Complaint. Chief Complaint Patient presents with Follow-up HPI. Patient is a 87 y.o. female Tess Benedict returns today for her SIX-MONTH follow-up to review Chronic medical problems and discuss her concerns, Review new orders, and brown bag medication review with all medications brought to the office, Refill Management where indicated . Important details of this conversation, exam, and plan for care are summarized at the top and bottom of this comprehensive note for the readers quick access to the information. ORDERS to review with her FROM LAST VISIT WITH ME 1. Patient to contact [facility] to set up [employer] boxing with her sister to start Parkinson's exercises 2. Left hip x-ray today diagnosis = fall, left hip pain history of hip replacement 3. Copy the [facility] paperwork sticker filled out today ORDERS FOR Tess Benedict TO ARRANGE 1. lifestyle changes Set up for [employer] with her sister and get working on balance and strength, you can improved from here with the Parkinson's 2. No Medication changes, one-month refills sent to local [facility] with three- month refills sent to the new mail order [facility] and local Klonopin sent for June 19, 2022 to local [facility] DETAILS REGARDING THIS VISIT: Tess reports feeling poorly with the development of diarrhea after going out with her sister lastFriday for dinner. She returns today for routine follow-up in update of her medications however she is several acute problems including worsening of her restless legs, concerned about her tremor that which was determine Dr. Ayers not be Parkinson's but nothing else was done to help her with her ongoing difficulty with restless legs not completely controlled despite nearly maximum doses of her Mirapex in combinationwith 0.5 clonazepam at bedtime. No further thought was placed in this problem by him nor were any questions answered. She was relieved not have Parkinson's and did not ask any of the questions that She has for me today she also has heart failure in his follow with Dr. Arauz in his having a great difficulty swallowingher potassium pills 1. Acute diarrhea This is likely food-borne illness possibly related to a dietary intolerance. Several suggestions are outlined on the AVS for dietary interventions to help with the problem while we proceed to look for acute infectious reasons for the problem 2. Restless legs syndrome Completely uncontrolled will be changing her dose of Mirapex from 0.1253 tablets at 5:00 p.m. over to Mirapex 0.25 at 2:00 p.m. and again before bedtime along with her clonazepam pramipexole (MIRAPEX) 0.25 mg tablet; Take 1 tablet (0.25 mg total) by mouth 2 (two) times a day Dispense: 180 tablet; Refill: 2 Ambulatory referral to Sleep Medicine; Future 3. Hereditary essential tremor Dr. Deshpande determine that her parkinsonian rigidity was not related to Parkinson's however she is on Parkinson's treatment with Mirapex I am not sure that is correct. She will continue on propranolol. Her essential tremor is under good control at this time propranoloL (INDERAL) 20 mg tablet; Take 1 tablet (20 mg total) by mouth 2 (two) times a day as needed (Tremor) Dispense: 180 tablet; Refill: 2 4. Chronic heart failure with preserved ejection fraction (CMS/HCC) (HCC) Referred back to Dr. Arauz to determine if she is a potential candidate for Jardiance at which point she can get off of her diuretic and potassium and perhaps have less problems with irritability of her muscles 5. 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 Controlled felodipine (PLENDIL) 5 mg 24 hr tablet; Take 1 tablet (5 mg total) by mouth daily Dispense: 90 tablet; Refill: 2 6. Chronic GERD Controlled pantoprazole DR (PROTONIX) 20 mg EC tablet; Take 1 tablet (20 mg total) by mouth daily With the largest meal Dispense: 90 tablet; Refill: 2 7. Angioedema, subsequent encounter Controlled cetirizine (ZyrTEC) 10 mg tablet; Take 1 tablet (10 mg total) by mouth nightly Dispense: 90 tablet;Refill: 3 8. Knee joint replacement status, bilateral 9. Gait disturbance Since the hip joint replacement knees are weak and she is having a great difficulty standing. Referral is already set up with physical therapy at [facility] for back program gait balance and strength training 10. Paroxysmal atrial fibrillation (CMS/HCC) (HCC) On Xarelto with multiple bruises on her arm just consistent with normal daily contusion. Refills sent to local pharmacy to roller picker as needed as she states Dr. Arauz is promise give her office samplesto supply her knees 11. Peripheral arterial disease (HCC) Dr. Arauz to evaluate whether this is adding to some of her leg restlessness 12. Spinal stenosis of lumbar region with neurogenic claudication Could also be a source of her leg restlessness to be addressed at physical therapy Past Medical History: Diagnosis Date Allergic rhinitis [...] TOTAL HIP ARTHROPLASTY Left 11/01/2021 Dr. Mckenzie, [facility]. Allergies Allergen Reactions Celecoxib Anaphylaxis [...] Current Medications: Outpatient Encounter Medications as of 12/08/2022 Medication Sig Dispense Refill albuterol HFA (Proventil [...] times a day 180 tablet 3 [DISCONTINUED] cetirizine (ZyrTEC) 10 mg tablet Take 1 tablet (10 mg total) by mouth nightly 90 tablet 3 [DISCONTINUED] clonazePAM (KlonoPIN) 0.5 mg tablet Take 1 tablet (0.5 mg total) by mouth nightly 30tablet 5 [DISCONTINUED] clonazePAM (KlonoPIN) 0.5 mg tablet Take 1 tablet (0.5 mg total) by mouth nightly 30tablet 5 [DISCONTINUED] cyclobenzaprine (FLEXERIL) 10 mg tablet Take 1 tablet (10 mg total) by mouth nightlyas needed for muscle spasms 30 tablet 0 [DISCONTINUED] felodipine (PLENDIL) 5 mg 24 hr tablet Take 1 tablet (5 mg total) by mouth daily 90 tablet 0 [DISCONTINUED] pantoprazole DR (PROTONIX) 20 mg EC tablet Take 1 tablet (20 mg total) by mouth daily With the largest meal 90 tablet 1 [DISCONTINUED] pramipexole (MIRAPEX) 0.125 mg tablet Take 1 tablet (0.125 mg total) by mouth 3 (three) times a day Take up to 3 tablets daily starting them when you are having tremor developed in theafternoon or evening and taking up to 3 tablets daily. You do not have to take the medicine the morning if you are not having problem 270 tablet 0 [DISCONTINUED] propranoloL (INDERAL) 20 mg tablet Take 1 tablet (20 mg total) by mouth 2 (two) times a day as needed (Tremor) 180 tablet 0 [DISCONTINUED] rivaroxaban (XARELTO) 20 mg tablet Take 1 tablet (20 mg total) by mouth daily 90 tablet 1 No facility-administered encounter medications on file as of 12/08/2022. Allergies Allergies Allergen Reactions Celecoxib Anaphylaxis Scopolamine [...] 02/23/2021 Review of Systems Constitutional: Positive for activity change, appetite change, fatigue and unexpected weight change. Negative for fever. HENT: Negative for congestion, dental problem, hearing loss, postnasal drip, sinus pressure, sore throat and trouble swallowing. Eyes: Negative for pain, discharge, itching and visual disturbance. Respiratory: Negative for cough, chest tightness, shortness of breath and wheezing. Cardiovascular: Negative for chest pain and palpitations. Gastrointestinal: Positive for diarrhea and nausea. Negative for abdominal distention, abdominal pain, anal bleeding, blood in stool, constipation, rectal pain and vomiting. Endocrine: Negative for cold intolerance, heat intolerance and polyuria. Genitourinary: Negative for difficulty urinating, dysuria, flank pain, frequency, hematuria, menstrual problem, pelvic pain and vaginal discharge. Musculoskeletal: Positive for arthralgias, back pain and gait problem. Negative for joint swelling and myalgias. Skin: Negative for color change and rash (bruising on the arms with senile purpuric). Neurological: Positive for weakness. Negative for dizziness and headaches. Hematological: Negative for adenopathy. Does not bruise/bleed easily. Psychiatric/Behavioral: Negative for behavioral problems, dysphoric mood and sleep disturbance. Thepatient is not nervous/anxious. BP 110/56 (BP Location: Left arm, Patient Position: Sitting) Pulse 81 Temp 36.3 ??C (97.3 ??F) (Temporal) Resp 16 Wt 84.4 kg (186 lb) LMP (LMP Unknown) SpO2 94% BMI 36.33 kg/m?? Physical Exam Vitals and nursing note [...] edema. Left lower leg: No edema. Comments: Muscular weakness noted on this left side unchanged from her baseline Lymphadenopathy: Cervical: No cervical adenopathy. Skin: General: [...] is some answers to help her problems Lab on 09/23/2022 Component Date Value NT-proBNP [...] and all orders for this visit: Acute diarrhea (Primary) - Comprehensive metabolic panel; Future - Magnesium; Future - T4, free; Future - TSH; Future - Stool culture Stool Rectum; Future - C. difficile testing Stool; Future Restless legs syndrome - pramipexole (MIRAPEX) 0.25 mg tablet; Take 1 tablet (0.25 mg total) by mouth 2 (two) times a day - Ambulatory referral to Neurology; Future Hereditary essential tremor - propranoloL (INDERAL) 20 mg tablet; Take 1 tablet (20 mg total) by mouth 2 (two) times a day as needed (Tremor) Chronic heart failure with preserved ejection fraction (CMS/HCC) (HCC) 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 - felodipine (PLENDIL) 5 mg 24 hr tablet; Take 1 tablet (5 mg total) by mouth daily Chronic GERD - pantoprazole DR (PROTONIX) 20 mg EC tablet; Take 1 tablet (20 mg total) by mouth daily With the largest meal Angioedema, subsequent encounter - cetirizine (ZyrTEC) 10 mg tablet; Take 1 tablet (10 mg total) by mouth nightly Knee joint replacement status, bilateral Gait disturbance Paroxysmal atrial fibrillation (CMS/HCC) (HCC) Peripheral arterial disease (HCC) Spinal stenosis of lumbar region with neurogenic claudication Other orders - rivaroxaban (XARELTO) 20 mg tablet; Take 1 tablet (20 mg total) by mouth daily - clonazePAM (KlonoPIN) 0.5 mg tablet; Take 1 tablet (0.5 mg total) by mouth nightly Return in about 6 months (around 06/09/2023) for Annual physical, Recheck. Pepper Morgan MD documented in this encounter Miscellaneous Notes * Result Encounter Note - Pepper Morgan MD - 12/10/2022 8:11 PM CDT She does have my chart but she is 87 and I am not sure that she actually goes on my chart so call her with this information KIDNEY FUNCTION IS diminished-- this is a reflection of using diuretics and i think this will get better as she goes through the new changes in medicine that she and dr. arauz will start with the jardiance and taper off diuretics * Addendum Note - Brian Hernandez - 12/08/2022 9:40 AM CDTAddended by: BRIAN HERNANDEZ on: 12/14/2022 11:02 AM Modules accepted: Orders documented in this [...] Procedure Name Priority Date/Time Associated Diagnosis Comments C. DIFFICILE TESTING Routine 12/14/2022 11:03 AM CDT Acute diarrhea TEST IN QUESTION - NO TEST ON CONTAINER Routine 12/14/2022 11:03 AM CDT STOOL CULTURE Routine 12/14/2022 11:03 AM CDT Acute diarrhea TSH Routine 12/09/2022 10:42 AM CDT Acute diarrhea T4, FREE Routine 12/09/2022 10:42 AM CDT Acute diarrhea MAGNESIUM Routine 12/09/2022 10:42 AM CDT Acute diarrhea COMPREHENSIVE METABOLIC PANEL Routine 12/09/2022 10:42 AM CDT Acute diarrhea documented in this encounter Results * TEST IN QUESTION - NO TEST ON CONTAINER (12/14/2022 11:03 AM CDT) Question/Proble m: [facility] Comment: No test(s) are indicated on the requisition for the following specimen(s). SPECIMEN(S) RECEIVED: [facility] stool vial [facility] Contact: [facility] [place] [facility] Comment: ? Comment [facility] Comment: REQUESTED INFORMATION AUTHORIZED SIGNATURE TO PREVENT FURTHER DELAYS IN TESTING, PLEASE COMPLETE INFORMATION ABOVE AND FAX TO [phone] TO RESOLVE THIS ORDER. 12/14/2022 11:0 3 AM CDT 12/14/2022 11:36 PM CDT Pepper Morgan MD LAB BLOOD ORDERABLES Final Result [facility] [address] [place] [address] * Stool culture Stool (12/14/2022 11:03 AM CDT) [employer] EIA [facility] Comment: ??CAMPYLOBACTER [employer]. AG,EIA ?Micro Number: ?[id number] ??Test Status: ? Final ??Specimen Source: ?? Stool ??Specimen Quality: ??Adequate ??Campy Ag Result: ?? Not Detected ??Reference Range: ?? Not Detected ?? Dutch/Shig/Campy, culture and ShIg A toxin, eia w/rfl toE.coli, culture [facility] Comment: ??SHIGA TOXINS, EIA W/RFL TO E.COLI O157 CULTURE ?Micro Number: ?[id number] ??Test Status: ? Final ??Specimen Source: ?? Stool ??Specimen Quality: ??Adequate ??Shiga Toxin: ? Not Detected ??Reference Range: ?? Not Detected ?? CULTURE, SALMONELLA AND SHIGELLA [facility] Comment: ??SALMONELLA AND SHIGELLA, CULTURE ?Micro Number: ?[id number] ??Test Status: ? Final ??Specimen Source: ?? Stool ??Specimen Quality: ??Adequate ??Result: ?No Salmonella or Shigella isolated Stool 12/14/2022 11:0 3 AM CDT 12/14/2022 11:36 PM CDT Pepper Morgan MD LAB MICROBIOLOGY - GENERAL ORDERABLES Final Result [facility] [address] [place] [address] * C. difficile testing Stool (12/14/2022 11:03 AM CDT) C difficile Toxins/GDH w/refl to PCR [facility] Comment: ??CLOSTRIDIUM DIFFICILE TOXIN/GDH W/REFL TO PCR ?Micro Number: ?[id number] ??Test Status: ? Final ??Specimen Source: ?? Stool ??Specimen Quality: ??Adequate ??GDH Antigen: ? Not Detected ??Toxin A and B: ? Not Detected ??COMMENT: ? No toxigenic C. difficile detected ? For additional information, please refer to ? [email or web address] [employer] [facility]/faq/[email or web address] ? (This link is being provided for ? informational/educational purposes only.) Stool 12/14/2022 11:0 3 AM CDT 12/14/2022 11:36 PM CDT us Pepper Morgan MD LAB MICROBIOLOGY - GENERAL ORDERABLES Final Result Performing Organization Address City/[facility] Co de Phone Number [facility] [facility] [address] [place] [address] * TSH (12/09/2022 10:42 AM CDT) TSH 2.56 0.40 - 4.50 mIU/L [facility] Blood 12/09/2022 10:4 2 AM CDT 12/09/2022 10:44 AM CDT Narrative [facility] - 12/10/2022 11:17 AM CDT PATIENT ONLY WANTS TO DO LAB TEST AND NONE OF THE STOOL. FASTING:YES FASTING: YES us Pepper Morgan MD LAB BLOOD ORDERABLES Final Result Performing Organization Address [facility] Co de Phone Number [facility] [address] [place] [address] * T4, free (12/09/2022 10:42 AM CDT) Free T4 1.6 0.8 - 1.8 ng/dL [facility] Blood 12/09/2022 10:4 2 AM CDT 12/09/2022 10:44 AM CDT Narrative [facility] - 12/10/2022 11:17 AM CDT PATIENT ONLY WANTS TO DO LAB TEST AND NONE OF THE STOOL. FASTING:YES FASTING: YES us Pepper Morgan MD LAB BLOOD ORDERABLES Final Result Performing Organization Address [facility] Co de Phone Number [facility] [address] [place] [address] * Magnesium (12/09/2022 10:42 AM CDT) Magnesium 2.1 1.5 - 2.5 mg/dL [facility] Blood 12/09/2022 10:4 2 AM CDT 12/09/2022 10:44 AM CDT Narrative [facility] - 12/10/2022 11:17 AM CDT PATIENT ONLY WANTS TO DO LAB TEST AND NONE OF THE STOOL. FASTING:YES FASTING: YES us Pepper Morgan MD LAB BLOOD ORDERABLES Final Result [facility] [address] [place] [address] * (ABNORMAL) Comprehensive metabolic panel (12/09/2022 10:42 AM CDT) Pathologist [facility] Glucose 89 65 - 99 mg/dL [facility] Comment: ? Fasting reference interval BUN 61(H) 7 - 25 mg/dL [facility] Creatinine 2.05(H) 0.60 - 0.95 mg/dL [facility] eGFR 23(L) > OR = 60 mL/min/1.7 3m2 [facility] Comment: The eGFR is based on the CKD-EPI 2020 equation. To calculate the new eGFR from a previous Creatinine or Cystatin C result, go to https://www.kidney.org/professionals/ kdoqi/gfr%5Fcalculator BUN/creat ratio 30(H) 6 - 22 (calc) [facility] Sodium 132(L) 135 - 146 mmol/L [facility] Potassium, pl 4.1 3.5 - 5.3 mmol/L [facility] Chloride 92(L) 98 - 110 mmol/L [facility] CO2 28 20 - 32 mmol/L [facility] Calcium 9.3 8.6 - 10.4 mg/dL [facility] Protein, sr 7.0 6.1 - 8.1 g/dL [facility] Albumin 3.9 3.6 - 5.1 g/dL [facility] GLOBULIN 3.1 1.9 - 3.7 g/dL (calc) [facility] Alb/glob ratio 1.3 1.0 - 2.5 (calc) [facility] Bilirubin, total 0.7 0.2 - 1.2 mg/dL [facility] Alk phos 105 37 - 153 U/L [facility] AST 15 10 - 35 U/L [facility] ALT (SGPT) 12 6 - 29 U/L [facility] Blood 12/09/2022 10:4 2 AM CDT 12/09/2022 10:44 AM CDT Narrative [facility] - 12/10/2022 11:17 AM CDT PATIENT ONLY WANTS TO DO LAB TEST AND NONE OF THE STOOL. FASTING:YES FASTING: YES us Pepper Morgan MD LAB BLOOD ORDERABLES Final Result [facility] [address] [place] [address] documented in this encounter Visit Diagnoses Diagnosis Acute diarrhea- Primary Diarrhea Restless legs syndrome Restless legs syndrome (RLS) Hereditary essential tremor Essential and other specified forms of tremor Chronic heart failure with preserved ejection fraction (CMS/HCC) (HCC) 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 Essential hypertension, benign Chronic GERD Angioedema, subsequent encounter Knee joint replacement status, bilateral Gait disturbance Abnormality of gait Paroxysmal atrial fibrillation (CMS/HCC) (HCC) Atrial fibrillation Peripheral arterial disease (HCC) Unspecified peripheral vascular disease Spinal stenosis of lumbar region with neurogenic claudication documented in this encounter Discontinued Medications Medication Sig Discontinue Reason Start Date End Da te cetirizine (ZyrTEC) 10 mg tabletIndications:Angioe josephine, subsequent encounter Take 1 tablet (10 mg total) by mouth nightly Reorder 09/17/2021 12/08/[address] (PROTONIX) 20 mg EC tabletIndications:Chroni c GERD Take 1 tablet (20 mg total) by mouth daily With the largest meal Reorder 06/19/2022 12/08/2022 rivaroxaban (XARELTO) 20 mg tablet Take 1 tablet (20 mg total) by mouth daily Reorder 07/19/2022 12/08/2022 felodipine (PLENDIL) 5 mg 24 hr tabletIndications: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 Take 1 tablet (5 mg total) by mouth daily Reorder 09/09/2022 12/08/2022 propranoloL (INDERAL) 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:Heredi tary essential tremor Take 1 tablet (20 mg total) by mouth 2 (two) times a day as needed (Tremor) Reorder 09/09/2022 12/08/2022 pramipexole (MIRAPEX) 0.125 mg tabletIndications:Idiopa thic Parkinsonism,Restless Legs Syndrome Take 1 tablet (0.125 mg total) by mouth 3 (three) times a day Take up to 3 tablets daily starting them when you are having tremor developed in the afternoon or evening and taking up to 3 tablets daily. You do not have to take the medicine the morning if you are not having problem Reorder 09/14/2022 12/08/2022 clonazePAM (KlonoPIN) 0.5 mg tablet Take 1 tablet (0.5 mg total) by mouth nightly Reorder 12/08/2022 12/08/2022 clonazePAM (KlonoPIN) 0.5 mg tablet Take 1 tablet (0.5 mg total) by mouth nightly 12/08/2022 12/08/2022 documented as of this encounter Care Teams Appeals Specialist Relationship Specialty Start Date End Date Pepper Morgan MD PCP - General 09/16/16 Hank Garibay MD [address] [facility] [facility] [address] [place] [address] Surgeon Orthopedic Surgery 03/27/17 Jacky Murry MD [address] [facility] [address] [place] [address] Ophthalmology 03/27/17 Puma Mckenzie MD [address] [facility] [facility] [address] [place] [address] Surgeon Orthopedic Surgery 07/11/19 Neha Jackson, KEVIN Physical Therapist Physical Therapy 12/01/21 Stalin Arauz MD [address] [facility] [address] [place] [address] Consulting Physician Cardiology 12/08/22 documented as of this encounter
--- OUTSIDE RECORDS SUMMARY | 2024-06-18 18:54 | XMS_ITS | Encounter Summary ---
Author Organization [facility] Medical Group Address [address] [facility] [address] [place] [address] Care Team Providers Care Logistics Service Representative Name Role Phone Pepper Morgan MD Primary Care Provider +- [phone] Hank Garibay MD Unavailable [phone] Jacky Murry MD Unavailable [phone] Puma Mckenzie MD Unavailable [phone] Neha Jackson PT Unavailable Unavailable Encounter Details Date Type Department Care Team (Late st Contact Info) Description 09/14/2022 Orders Only [facility] [address] [place] [address] Pepper Morgan MD [address] [place] [address] Restless legs syndrome; Parkinson's disease (tremor, stiffness, slow motion, unstable posture) (CMS/HCC) ([facility]) Social History Tobacco Use Types Packs/Day Years [...] on file 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 You do not have to take the medicine the morning if you are not having problem 270 tablet 1 09/14/2022 3 clonazePAM (KlonoPIN) 0.25 mg disintegrating tabletIndications:Re stless legs syndrome Take 1 tablet (0.25 mg total) by mouth 2 (two) times a day as needed (Restless leg) 60 tablet 5 09/14/2022 3 documented in this encounter Progress Notes * Pepper Morgan MD - 09/14/2022 12:19 AM CDT Pharmaceutical confusion regarding her Mirapex 0.125 3 times daily sent to mail order [facility] pharmacy for restless leg Pharmaceutical company confusion regarding her Klonopin 0.25 mg twice daily p.r.n. for restless legs sent to her local [facility] pharmacy Both medications established for the next six-month without expiration date Dr. Morgan documented in this encounter Plan of [...] times a day as needed for seizures Reorder 06/19/2022 09/14/2022 pramipexole (MIRAPEX) 0.125 mg tabletIndications:Idiopat hic Parkinsonism,Restless Legs Syndrome Take 1 tablet (0.125 mg total) by mouth 3 (three) times a day Take up to 3 tablets daily starting them when you are having tremor developed in the afternoon or evening and taking up to 3 tablets daily. You do not have to take the medicine the morning if you are not having problem Reorder 09/13/2022 09/14/2022 documented as of this encounter Care Teams Logistics Service Representative Relationship Specialty Start Date End Date Pepper Morgan MD PCP - General 09/16/16 Hank Garibay MD [address] [place] [address] [address] [place] [address] Surgeon Orthopedic Surgery 03/27/17 Jacky Murry MD [address] [place] [address] [address] [place] [address] Ophthalmology 03/27/17 Puma Mckenzie MD [address] [place] [address] [address] [facility] [address] [place] [address] Surgeon Orthopedic Surgery 07/11/19 Neha Jackson, PT Physical Therapist Physical Therapy 12/01/21 documented as of this encounter
--- OUTSIDE RECORDS SUMMARY | 2024-06-18 18:54 | XMS_ITS | Encounter Summary ---
Author Organization [facility] Medical Group Address [address] [facility] [address] [place] [address] Care Team Providers Care Flat Bed Operator Name Role Phone Pepper Morgan MD Primary Care Provider + [phone] Hank Garibay MD Unavailable [phone] Jacky Murry MD Unavailable [phone] Puma Mckenzie MD Unavailable [phone] Neha Jackson PT Unavailable Unavailable Stalin Arauz MD Unavailable [phone] Encounter Details Date Type Department Care Team (Late st Contact Info) Description 12/23/2022 Telephone [facility] [address] [place] [address] Malena Reyez, XU Social History Tobacco Use Types Packs/Day [...] on file 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 RANGEL or nurse practitioner. Thank you! ([facility] ER visit on 12/22/22, suspected colitis) documented in this encounter Plan of Treatment [...] on filedocumented in this encounter Care Teams Flat Bed Operator Relationship Specialty Start Date End Date Pepper Morgan MD PCP - General 09/16/16 Hank Garibay MD [address] [facility] [address] [facility] [address] [place] [address] Surgeon Orthopedic Surgery 03/27/17 Jacky Murry MD [address] [facility] [address] [facility] [address] [place] [address] Ophthalmology 03/27/17 Puma Mckenzie MD [address] [facility] [address] [facility] [address] [place] [address] Surgeon Orthopedic Surgery 07/11/19 Neha Jackson, PT Physical Therapist Physical Therapy 12/01/21 Stalin Arauz MD [address] [facility] [place] [address] Consulting Physician Cardiology 12/08/22 documented as of this encounter
--- OUTSIDE RECORDS SUMMARY | 2024-06-18 18:54 | XMS_ITS | Encounter Summary ---
Author Organization [facility] Medical Group Address [address] [facility] [address] [place] [address] Care Team Providers Care Jockey Room Custodian Name Role Phone Pepper Morgan MD Primary Care Provider +- [phone] Hank Garibay MD Unavailable [phone] Jacky Murry MD Unavailable [phone] Puma Mckenzie MD Unavailable [phone] Neha Jackson PT Unavailable Unavailable Stalin Arauz MD Unavailable [phone] Encounter Details Date Type Department Care Team (Late st Contact Info) Description 12/15/2022 Telephone [facility] [address] [place] [address] Pepper Morgan MD [address] [place] [address] Social History Tobacco Use Types Packs/Day Years [...] file 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 She will call back if she doesn't hear from us in a few days. * Telephone Encounter - Eri Owens - 12/15/2022 12:10 PM CDT Pt would like the results of her stool culture done on 12/14/22. Cbn#[phone] patient documented in this encounter Plan [...] on filedocumented in this encounter Care Teams Jockey Room Custodian Relationship Specialty Start Date End Date Pepper Morgan MD PCP - General 09/16/16 Hank Garibay MD [address] [facility] [address] [place] [address] Surgeon Orthopedic Surgery 03/27/17 Jacky Murry MD [address] [facility] [address] [place] [address] Ophthalmology 03/27/17 Puma Mckenzie MD [address] [facility] [address] [place] [address] Surgeon Orthopedic Surgery 07/11/19 Neha Jackson, PT Physical Therapist Physical Therapy 12/01/21 Stalin Arauz MD [address] [facility] [address] [place] [address] Consulting Physician Cardiology 12/08/22 documented as of this encounter
--- OUTSIDE RECORDS SUMMARY | 2024-06-18 18:54 | XMS_ITS | Encounter Summary ---
Author Organization [facility] Medical Group Address [address] [facility] [address] [place] [address] Care Team Providers Care Experimental Electronics Developer Name Role Phone Pepper Morgan MD Primary Care Provider + [phone] Hank Garibay MD Unavailable [phone] Jacky Murry MD Unavailable [phone] Puma Mckenzie MD Unavailable [phone] Neha Jackson PT Unavailable Unavailable Reason for Visit * Reason Onset Date Comments Patient needing a doctor for parkinson 3 Encounter Details Date Type Department Care Team (Late st Contact Info) Description 11/08/2022 Telephone [facility] [address] [place] [id number] Pepper Morgan MD [address] [address] Patient needing a doctor for parkinson Social History Tobacco Use Types Packs/Day Years [...] on file 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 Deshpande's office. She states Dr. Deshpande's schedule is busy because he was out the of September. She states she can get pt in now on 01-02-23 @ 9:30am with Dr. Deshpande. Went ahead & took this appt.. She cx'd out pt appt on 02-03-23. Fabby states they don't have a cancellation list. She states she will ask Dr. Deshpande to see,if he can get her in sooner then 01-02-23 & will get backwith pt or us. Pt aware of this. She knows her appt with Dr. Deshpande is 01-02-23 @ 9:30am now & Fabby will ask Dr. Deshpande to see,if he can see her sooner then 01-02-23. She voiced understanding & knows she can call 's office,if she doesn't hear back from Fabby & to see,if he has had any cancellations. She voiced understanding. * Telephone Encounter - Yvette Zapata RN - 11/08/2022 4:03 PM CDT LM for pt that we are trying to get appt moved up. Fwd to Ada to see what she can do. * Telephone Encounter - GayleVickie kelley - 11/08/2022 8:50 AM CDT Patient calling she has a appointment with Dr Deshpande but not until January. She didn't know if there was someone else we could refer to for her she has parkinsons walking is getting worse and her tremorsare bad. Cbn: [phone] documented in this encounter Plan [...] on filedocumented in this encounter Care Teams Experimental Electronics Developer Relationship Specialty Start Date End Date Pepper Morgan MD PCP - General 09/16/16 Hank Garibay MD [address] [facility] [address] [place] [address] Surgeon Orthopedic Surgery 03/27/17 Jacky Murry MD [address] [facility] [address] [place] [address] Ophthalmology 03/27/17 Puma Mckenzie MD [address] [facility] [address] [place] [address] Surgeon Orthopedic Surgery 07/11/19 Neha Jackson, PT Physical Therapist Physical Therapy 12/01/21 documented as of this encounter
--- OUTSIDE RECORDS SUMMARY | 2024-06-18 18:54 | XMS_ITS | Encounter Summary ---
Author Organization [facility] Medical Group Address [address] [facility] [address] [place] [address] Care Team Providers Care Diamond Merchant Name Role Phone Pepper Morgan MD Primary Care Provider + [phone] Hank Garibay MD Unavailable [phone] Jacky Murry MD Unavailable [phone] Puma Mckenzie MD Unavailable [phone] Neha Jackson PT Unavailable Unavailable Stalin Arauz MD Unavailable [phone] Encounter Details Date Type Department Care Team (Late st Contact Info) Description 12/08/2022 Telephone [employer] Branch Manager at [address] [place] [address] Hai Dalton MA Social History [...] on file 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 Morgan's office called stating that patient is in office today and discussing if Jardiance would be a good medication for the patient due to her CHF. Please review chart and advise. documented in this encounter Plan of [...] on filedocumented in this encounter Care Teams Diamond Merchant Relationship Specialty Start Date End Date Pepper Morgan MD PCP - General 09/16/16 Hank Garibay MD [address] [place] [address] [address] [place] [address] Surgeon Orthopedic Surgery 03/27/17 Jacky Murry MD [address] [place] [address] [address] [place] [address] Ophthalmology 03/27/17 Puma Mckenzie MD [address] [facility] [address] [facility] [address] [place] [address] Surgeon Orthopedic Surgery 07/11/19 Neha Jackson PT Physical Therapist Physical Therapy 12/01/21 Stalin Arauz MD [address] [facility] [address] [place] [address] Consulting Physician Cardiology 12/08/22 documented as of this encounter
--- OUTSIDE RECORDS SUMMARY | 2024-06-18 18:54 | XMS_ITS | Encounter Summary ---
Author Organization [facility] Medical Group Address [address] [address] Care Team Providers Care Glass Or Mirror Inspector Name Role Phone Pepper Morgan MD Primary Care Provider + [phone] Hank Garibay MD Unavailable [phone] Jacky Murry MD Unavailable [phone] Puma Mckenzie MD Unavailable [phone] Neha Jackson PT Unavailable Unavailable Stalin Arauz MD Unavailable [phone] Reason for Visit * Reason Onset Date Comments Diarrhea 12/16/2022 Encounter Details Date Type Department Care Team (Late st Contact Info) Description 12/16/2022 Telephone [facility] [address] [place] [address] Pepper Morgan MD [address] [place] [address] Diarrhea Social History Tobacco Use Types Packs/Day Years Used Date Smoking Tobacco: Former Cigarettes 2 18 07 952 - 1981 Smokeless Tobacco: Never Alcohol [...] on file 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 HEAD Gender Identity Not on file Sexual Orientation Not on file Occupation Industry Job Start Date Job End Date retired Not on file Not on file Not on file documented as of this encounter Ordered Prescriptions Prescription Sig Dispense Quantity Refills Last Filled Start Date End Date ondansetron (ZOFRAN) 4 mg tabletIndications: nausea and diarrhea Take 1 tablet (4 mg total) by mouth every 8 (eight) hours as needed for nausea or vomiting 20 tablet 12/16/2022 3 documented in this encounter Miscellaneous Notes * Telephone Encounter - Milana Fuentes RN - 12/16/2022 10:50 AM CDT Spoke with Dr Arroyo informed him about the pt Stools are negative and she continues to have diarrhea Pt may use OTC imodium and we will call her in the zofran Pt will use OTC for her hemorrhoid also Called and informed the pt of the message Pt verbalized understanding and will call us back with any questions or problems ondansetron (ZOFRAN) 4 mg tablet Take 1 tablet (4 mg total) by mouth every 8 (eight) hours as needed for nausea or vomiting, Starting 12/16/2022, Normal * Telephone Encounter - Vickie Araujo - 12/16/2022 8:07 AM CDT Patient calling she has diarrhea bad. She is waiting for lab results she has no cdiff. It has been a week and she feels horrible. She needs something to stop this. She also has a hemmrhoid tht is bleeding. She cannot take this anymore. She is getting sick to stomach. [facility] cbn [phone] documented in this encounter Plan of Treatment [...] on filedocumented in this encounter Care Teams Glass Or Mirror Inspector Relationship Specialty Start Date End Date Pepper Morgan MD PCP - General 09/16/16 Hank Garibay MD [address] [facility] [address] [facility] [address] [place] [address] Surgeon Orthopedic Surgery 03/27/17 Jacky Murry MD [address] [facility] [address] [facility] [address] [place] [address] Ophthalmology 03/27/17 Puma Mckenzie MD [address] [facility] [address] [facility] [address] [place] [address] Surgeon Orthopedic Surgery 07/11/19 Neha Jackson, PT Physical Therapist Physical Therapy 12/01/21 Stalin Arauz MD [address] [facility] [address] [place] [address] Consulting Physician Cardiology 12/08/22 documented as of this encounter
--- OUTSIDE RECORDS SUMMARY | 2024-06-18 18:54 | XMS_ITS | Encounter Summary ---
Author Organization [facility] Address [address] [place] [address] Care Team Providers Care Supervisor Modern Languages Name Role Phone Pepper Morgan MD Primary Care Provider + [phone] Hank Garibay MD Unavailable [phone] Jacky Murry MD Unavailable [phone] Puma Mckenzie MD Unavailable [phone] Neha Jackson PT Unavailable Unavailable Stalin Arauz MD Unavailable [phone] Reason for Visit * Reason Comments Diarrhea Encounter Details Date Type Department Care Team (Late st Contact Info) Description 12/22/2022 1:04 PM CDT - 12/22/2022 2:58 PM CDT Emergency [facility] Emergency Department [address] [place] [address] Josue Banks MD [address] [place] [address] [place] [address] Colitis (Primary Dx) Discharge Disposition: Discharge to home [...] on file 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 Gender Identity Not on file Sexual Orientation Not on file Occupation Industry Job Start Date Job End Date retired Not on file Not on file Not on file documented as of this encounter Last Filed Vital Signs Vital Sign Reading Time Taken Comments Blood Pressure 90/59 12/22/2022 2:00 PM CDT Pulse 66 12/22/2022 2:00 PM CDT Temperature 36.3 ??C (97.4 ??F) 12/22/2022 11:39 AM C DT Respiratory Rate 20 12/22/2022 2:00 PM CDT Oxygen Saturation 97% 12/22/2022 1:30 PM CDT Inhaled Oxygen Concentration - - Weight 84.4 kg (186 lb) 12/22/2022 11:39 AM CDT Height - - Body Mass Index 36.33 11/01/2022 9:28 AM CDT documented in this encounter Medications at Time of Discharge cetirizine (ZyrTEC) 10 mg tabletIndications:A ngioedema, subsequent [...] of breath 6.7 g 2 02/23/20 23 clonazePAM (KlonoPIN) 0.25 mg disintegrating tabletIndications:R estless legs syndrome Take 1 tablet (0.25 mg total) by mouth 2 (two) times a day as needed (Restless leg) 60 tablet 5 3 12/31/19 23 clonazePAM (KlonoPIN) 0.5 mg tablet Take 1 tablet (0.5 mg total) by mouth nightly 30 tablet 5 3 05/30/20 23 clopidogreL (PLAVIX) 75 mg tablet Take 1 tablet (75 mg total) by mouth daily 90 tablet 3 2 02/08/20 23 felodipine (PLENDIL) 5 mg 24 hr tabletIndications:B enign hypertension Take 1 tablet (5 mg total) by mouth daily 90 tablet 2 3 06/24/19 24 furosemide (LASIX) 40 mg tabletIndications:B enign hypertension Take 1 tablet (40 mg total) by mouth 2 (two) times a day 180 tablet 3 3 12/31/19 23 levoFLOXacin (LEVAQUIN) 250 mg tablet Take 1 tablet (250 mg total) by mouth daily for 10 days 10 tablet 3 12/27/19 23 metOLazone (ZAROXOLYN) 2.5 mg tablet Take 1 tablet (2.5 mg total) by mouth every other day 45 tablet 3 3 12/31/19 23 metroNIDAZOLE (FLAGYL) 500 mg tablet Take 1 tablet (500 mg total) by mouth 3 (three) times a day for 10 days 30 tablet 3 12/27/19 23 ondansetron (ZOFRAN) 4 mg tabletIndications:n ausea and diarrhea Take 1 tablet (4 mg total) by mouth every 8 (eight) hours as needed for nausea or vomiting 20 tablet 3 02/07/[address] (PROTONIX) 20 mg EC tabletIndications:C hronic GERD Take 1 tablet (20 mg total) by mouth daily With the largest meal 90 tablet 2 3 12/31/19 23 polyethylene glycol (MIRALAX) 17 gram packetIndications:c onstipation Take 1 packet (17 g total) by mouth daily as needed for constipation 02/08/20 24 potassium chloride ER (KLOR-CON) 20 mEq CR tablet Take 2 tablets (40 mEq total) by mouth 2 (two) times a day 120 tablet 11 3 02/07/20 23 pramipexole (MIRAPEX) 0.25 mg tabletIndications:I diopathic Parkinsonism,Restle ss Legs Syndrome Take 1 tablet (0.25 mg total) by mouth 2 (two) times a day 180 tablet 2 3 04/24/20 23 propranoloL (INDERAL) 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:H ereditary essential tremor Take 1 tablet (20 mg total) by mouth 2 (two) times a day as needed (Tremor) 180 tablet 2 3 07/13/19 24 rivaroxaban (XARELTO) 20 mg tablet Take 1 tablet (20 mg total) by mouth daily 30 tablet 11 3 03/08/20 24 spironolactone (ALDACTONE) 25 mg tablet Take 1 tablet (25 mg total) by mouth 2 (two) times a day 180 tablet 3 3 01/26/20 23 documented as of this encounter Ordered Prescriptions Prescription Sig Dispense Quantity Refills Last Filled Start Date End Date levoFLOXacin (LEVAQUIN) 250 mg tablet Take 1 tablet (250 mg total) by mouth daily for 10 days 10 tablet 12/22/2022 12/26/2022 metroNIDAZOLE (FLAGYL) 500 mg tablet Take 1 tablet (500 mg total) by mouth 3 (three) times a day for 10 days 30 tablet 12/22/2022 12/26/2022 documented in this encounter Discharge Disposition Disposition Code Departure Means Destination Comment s Discharge to home or self care documented in this encounter ED Notes * Josue Banks MD - 12/22/2022 2:01 PM CDT HPI Chief Complaint Patient presents with ??? Diarrhea This is an 87-year-old female, who has history of congestive heart failure, atrial fibrillation, GERD, hypertension, who states close to 3 weeks ago she started with watery diarrhea. 5-6 bowel movements usually watery. At the beginning she had an episode of crawling or cramping of the abdomen, there has resolved, and vomit twice. No fevers, no chills. She does not feel this has happened before usually her problem is more constipation. The patient denies any abdominal pain, denies any urinary complaints. In the emergency room she is alert oriented x3, she is not in any distress. She states shetakes Lasix for her congestive heart failure, and has supplemental potassium. She took her Lasix tod ay. History provided by: Patient and medical records Patient History: Patient Active Problem List Diagnosis Date Noted ??? Gait disturbance 11/11/2022 ??? Chronic heart failure with preserved ejection fraction (CMS/HCC) ([facility]) 07/25/2022 ??? Postural kyphosis of cervicothoracic region 01/24/2022 ??? 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 Peripheral arterial disease ([facility]) 11/09/2021 ??? Angio-edema 09/15/2021 ??? Atrial fibrillation (CMS/HCC) ([facility]) 04/21/2021 ??? Bariatric surgery status 04/04/2017 ??? Knee joint replacement status, bilateral 04/04/2017 ??? Spinal stenosis of lumbar region with neurogenic claudication 12/17/2016 ??? History of malignant melanoma 02/10/2015 ??? 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 Chronic GERD 11/02/2013 ??? 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 11/02/2013 ??? Restless legs syndrome 11/02/2013 Past Medical History: Diagnosis Date ??? Allergic rhinitis ??? Arrhythmia A-fibrillation ??? Arthritis of ankle ??? Basal cell carcinoma of nose 09/2008 ??? CHF (congestive heart failure) (CMS/HCC) ([facility]) ??? Cough ??? DVT (deep venous thrombosis) (CMS/HCC) ([facility]) 1977 upper left arm near elbow--- ??? Fibrocystic breast ??? GERD (gastroesophageal reflux disease) ??? 4, not currently para 3 miss 1 ??? Heel spur, unspecified laterality ??? Hx of rheumatic fever ??? HX OTHER MEDICAL 1992 strangulated hernia ??? HX OTHER MEDICAL back pain; Comments: APO 01/13/2014 - ??? HX OTHER MEDICAL melanoma surgery; Comments: APO 01/13/2014 - ??? HX OTHER MEDICAL gastroplasty; Comments: APO 01/13/2014 - ??? Hypertension ??? Joint pain 04/2002 ??? Left foot pain 03/1999 ? gout ??? Lymphedema 12/06/2021 ??? Malignant melanoma (HCC) Malignant melanoma; Comments: APO 01/13/2014 - ??? Menopause ??? Motion sickness ??? Obesity ??? PONV (postoperative nausea and vomiting) ??? Restless leg ??? Right carpal tunnel syndrome ??? Superficial basal cell carcinoma 2003 Cancer, basal Cell ??? Tobacco use 1-2ppd x 35yrs quit Past Surgical History: Procedure Laterality Date ??? BARIATRIC SURGERY 1983 gastroplasty ??? BREAST BIOPSY 1994 Breast biopsy ??? CHOLECYSTECTOMY 1991 Cholecystectomy ??? FL FLUORO GUIDED INJECTION HIP LEFT Left 01/28/2021 ??? FLUORO GUIDED INJECTION HIP RIGHT Right 04/08/2019 ??? HAND SURGERY 1975 arm surgery on the left, they removed all the lymph nodes on that side. ??? HERNIA REPAIR Hernia repair ??? KNEE ARTHROSCOPY 2002 Arthroscopy knee ??? KNEE ARTHROSCOPY Arthroscopy knee ??? OTHER SURGICAL HISTORY 1991 strangulated hernia: hernia repair ??? OTHER SURGICAL HISTORY 2002 Cancer, basal Cell: resection with skin graft ??? REPLACEMENT TOTAL KNEE Left 02/07/2017 Dr. Meier ??? REPLACEMENT TOTAL KNEE Right ??? TOTAL HIP ARTHROPLASTY Right 06/2019 The successful right hip replacement Dr. Mckenzie ??? TOTAL HIP ARTHROPLASTY Left 11/01/2021 Dr. Mckenzie, [facility]. Family History Problem Relation Age of Onset ??? Cancer Other Family history of Cancer, unknown; ??? Arthritis Other Family history of Arthritis; ??? Abdominal Aortic Aneurysm Father ??? COPD Father Social History Tobacco Use ??? Smoking status: Former Packs/day: 2.00 Years: 30.00 Pack years: 60.00 Types: Cigarettes Quit date: 1982 Years since quittin.5 ??? Smokeless tobacco: Never Vaping Use ??? Vaping Use: Never used Substance and Sexual Activity ??? Alcohol use: Not Currently ??? Drug use: Never ??? Sexual activity: Defer Social History Social History Narrative ??? Not on file Review of Systems Review of Systems Gastrointestinal: Positive for diarrhea. All other systems reviewed and are negative. Physical Exam ED Triage Vitals [12/22/22 1139] Temp Pulse Resp BP SpO2 36.3 ??C (97.4 ??F) 75 18 96/69 100 % Temp src Heart Rate Source Patient Position BP Location FiO2 (%) Temporal -- -- -- -- Height Height Method Weight Weight Method -- -- 84.4 kg (186 lb) Stated Physical Exam Vitals and nursing note reviewed. Constitutional: Appearance: Normal appearance. HENT: Head: Normocephalic. Nose: Nose normal. Mouth/Throat: Mouth: Mucous membranes are moist. Eyes: Pupils: Pupils are equal, round, and reactive to light. Cardiovascular: Rate and Rhythm: Normal rate and regular rhythm. Pulses: Normal pulses. Heart sounds: Normal heart sounds. Pulmonary: Effort: Pulmonary effort is normal. Breath sounds: Normal breath sounds. Abdominal: General: Abdomen is flat. Bowel sounds are normal. There is no distension. Palpations: Abdomen is soft. There is no mass. Tenderness: There is no abdominal tenderness. There is no right CVA tenderness, left CVA tenderness, guarding or rebound. Hernia: No hernia is present. Musculoskeletal: General: Normal range of motion. Cervical back: Normal range of motion. Skin: General: Skin is warm. Capillary Refill: Capillary refill takes less than 2 seconds. Neurological: General: No focal deficit present. Mental Status: She is alert and oriented to person, place, and time. Mental status is at baseline. MDM Medical Decision Making Amount and/or Complexity of Data Reviewed Radiology: ordered. ED Course as of 12/22/22 1418 Time: 12/22 1416 Comment: No diarrhea noted while in the emergency room. No nausea, no vomiting. The patient blood work shows chronic kidney disease, has not changed the creatinine. Normal white blood cell count, no tachycardia, no fevers. The CT scan of the abdomen and pelvis without contrast, showed that the patient may have a colitis. Which could explain the symptoms with the patient. She will be started on oral antibiotics, and has been recommended a close follow-up with the primary care physician. By: Josue Banks MD Time: 12/22 1418 Comment: The patient has been explained that if she has worsening of her symptoms, bloody diarrhea,nausea, vomiting, abdominal pain, fevers, or other major concerns to return to the emergency room for evaluation. By: Josue Banks MD Final diagnoses: None Josue Banks MD 12/22/22 1404 * Roosevelt Roblero RN - 12/22/2022 11:35 AM CDT Pt to ED via POV for diarrhea. Per Pt she has had diarrhea for 2 wks. Per Pt she has been medicating with imodium, with no relief. Pt denies srikanth abdominal pain. Pt reports feeling increasingly weak. documented in this encounter Plan of Treatment [...] Name Priority Date/Time Associated Diagnosis Comments CT ABDOMEN PELVIS WO CONTRAST ED 12/22/2022 1:49 PM CDT EGFR STAT 12/22/2022 12:39 PM CDT DIFFERENTIAL AUTO STAT 12/22/2022 12: 39 PM CDT CBC WITH AUTO DIFFERENTIAL STAT 12/22/2022 12:39 PM CDT COMPREHENSIVE METABOLIC PANEL STAT 12/22/2022 12:39 PM CDT ECG 12-LEAD STAT 12/22/2022 12:34 PM CDT documented in this encounter Results * CT Abdomen Pelvis WO Contrast (12/22/2022 1:49 PM CDT) Anatomical Region Laterality Modality Body N/A Computed Tomogra phy 12/22/2022 1:58 PM CDT Narrative 12/22/2022 2:04 PM CDT EXAM DESCRIPTION: ?? CT ABDOMEN PELVIS WO CONTRAST REASON FOR STUDY: ?? Abdominal infection suspected ?? Table formatting from the original note was not included. ??Images from the original note were not included. ?Pt to ED via POV for diarrhea. Per Pt she has had diarrhea for 2 wks. Per Pt she has been medicating with imodium, with no relief. Pt denies srikanth abdominal pain. Pt reports feeling increasingly weak. ? TECHNIQUE: CT scan of the abdomen and pelvis performed without intravenous and without ??oral contrast using helical scanning technique. Reconstructed coronal and sagittal MPR images reviewed. All images stored on PACS. Automated exposure control was used as a dose optimization technique for this examination. COMPARISON: ?? 11/09/2021 REFERENCE: Per ACR white paper recommendations, unless otherwise specified no follow-up imaging is recommended for incidental renal and adrenal lesions per consensus recommendations based on imaging criteria. Further lab evaluation could be pursued based on clinical findings. FINDINGS: The sensitivity for detection of visceral lesions is diminished without the use of intravenous contrast. LOWER CHEST: ?? There is mild cardiomegaly. ??There is no definite evidence of pericardial effusion. ??There are atherosclerotic changes of the aorta and vasculature. ??There is a left common iliac artery stent noted terminating in the left external iliac artery. ??There is mild bibasilar subsegmental atelectasis and scarring. ??There is a small hiatal hernia. LIVER: ?? The liver is grossly stable in size and contour. GALLBLADDER: ?? Surgically absent. BILE DUCTS: ?? No intrahepatic or extrahepatic ductal dilatation. SPLEEN: ?? The spleen is grossly stable in size and unremarkable. PANCREAS: ?? The pancreas has a grossly stable unenhanced CT appearance. ADRENALS: ?? The right adrenal gland is grossly stable and unremarkable. ??There is stable mild nonspecific nodularity of the left adrenal gland. KIDNEYS/URINARY TRACT: ?? There is no definite unenhanced CT evidence of a renal mass. ??There is no definite evidence of nephrolithiasis. ??There is no definite evidence of hydronephrosis or hydroureter. ?The urinary bladder is obscured by metallic artifact bilateral hip arthroplasties. ??There is suggestion of circumferential mucosal thickening of the urinary bladder. ?? There is suggestion of air within the urinary bladder. GI: ?? There is no definite evidence of bowel obstruction. ??The appendix is not visualized, however there are no definite pericecal inflammatory changes to suggest appendicitis. ??There are scattered colonic diverticula without definite evidence of diverticulitis. ??There is mild mucosal thickening of the descending colon and sigmoid colon. ??There are multiple small fat containing ventral abdominal wall hernias. ??There is no definite evidence of free air or fluid in the abdomen and pelvis. ??There is no definite unenhanced CT evidence of lymphadenopathy in the abdomen and pelvis. REPRODUCTIVE: ?? There is no definite unenhanced CT evidence of a large ovarian or uterine mass. MUSCULOSKELETAL: ?? There is mild osteopenia. ??There is a minimal to mild levoscoliotic curvature of the spine with degenerative changes. ??There are degenerative changes bilateral sacroiliac joints. 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 OTHER: ?? No other abnormality. IMPRESSION: No definite evidence of bowel obstruction. No definite evidence of obstructive uropathy or nephrolithiasis. Circumferential mucosal thickening of the urinary bladder, which may be related to underdistention versus cystitis. Clinical correlation with urinary analysis is recommended as clinically indicated. Suggestion of air within the urinary bladder, which may be related to recent instrumentation. ??Correlation with recent procedural history is recommended as clinically indicated. Mild mucosal thickening of the descending colon and sigmoid colon, which may be related to underdistention versus mild colitis of infectious or inflammatory etiology. Scattered colonic diverticula without definite evidence of diverticulitis. THIS IS AN ELECTRONICALLY VERIFIED FINAL REPORT 12/22/2022 2:04 PM - Electronically signed by ??Rock Jerome D.O. PS: PS D: ??12/22/2022 2:04 PM T: ??12/22/2022 2:04 PM Report ID: [id number] Reading Location: ??[id number] Procedure Note Rock Jerome, DO - 12/22/2022 EXAM DESCRIPTION: CT ABDOMEN PELVIS WO CONTRAST REASON FOR STUDY: Abdominal infection suspected Table formatting from the original note was not included. Images from the original note were not included. Pt to ED via POV for diarrhea. Per Ptshe has had diarrhea for 2 wks. Per Pt she has been medicating with imodium,with no relief. Pt denies srikanth abdominal pain. Pt reports feeling increasingly weak. TECHNIQUE: CT scan of the abdomen and pelvis performed without intravenousand without oral contrast using helical scanning technique. Reconstructed coronal and sagittal MPR images reviewed. All images stored on PACS.Automated exposure control was used as a dose optimization technique for this examination. COMPARISON: 11/09/2021 REFERENCE: Per ACR white paper recommendations, unless otherwise specifiedno follow-up imaging is recommended for incidental renal and adrenal lesionsper consensus recommendations based on imaging criteria. Further labevaluation could be pursued based on clinical findings. FINDINGS: The sensitivity for detection of visceral lesions is diminished withoutthe use of intravenous contrast. LOWER CHEST: There is mild cardiomegaly. There is no definite evidenceof pericardial effusion. There are atherosclerotic changes of the aorta and vasculature. There is a left common iliac artery stent noted terminatingin the left external iliac artery. There is [...] right adrenal gland is grossly stable and unremarkable.There is stable mild nonspecific nodularity of the left adrenal gland. KIDNEYS/URINARY TRACT: There is no definite unenhanced CT evidence of a renal mass. There is no definite evidence of nephrolithiasis. There isno definite evidence of hydronephrosis or hydroureter. The urinary bladderis obscured by metallic artifact bilateral hip arthroplasties. There is suggestion of circumferential mucosal thickening of the urinary bladder. There is suggestion of air within the urinary bladder. GI: There is no definite evidence of bowel obstruction. The appendix isnot visualized, however there are no definite pericecal inflammatory changesto suggest appendicitis. There are scattered colonic diverticula without definite evidence of diverticulitis. There is mild mucosal thickening ofthe descending colon and sigmoid colon. There are multiple small fatcontaining ventral abdominal wall hernias. There is no definite evidence of free airor fluid in the abdomen and pelvis. There is no definite unenhanced CTevidence of lymphadenopathy in the abdomen and pelvis. REPRODUCTIVE: There is no definite unenhanced CT evidence of a largeovarian or uterine mass. MUSCULOSKELETAL: There is mild [...] related to underdistention versus cystitis. Clinical correlation withurinary analysis is recommended as clinically indicated. Suggestion of air within the urinary bladder, which may be related torecent instrumentation. Correlation with recent procedural history isrecommended as clinically indicated. Mild mucosal thickening of the descending colon and sigmoid colon, whichmay be related to underdistention versus mild colitis of infectious or inflammatory etiology. Scattered colonic diverticula without definite evidence ofdiverticulitis. THIS IS AN ELECTRONICALLY VERIFIED FINAL REPORT 12/22/2022 2:04 PM - Electronically signed by Rock Jerome D.O. PS: PS Report ID: [id number] Reading Location: [place] [address] Josue Banks MD IMG CT PROCEDURES Final Resu lt * eGFR (12/22/2022 12:39 PM CDT) eGFR 27 mL/min/1. 73 m2 [facility] ([place]) Comment: [...] interpretive data was last reviewed 2021. Blood 12/22/2022 12:3 9 PM CDT 12/22/2022 12:41 PM CDT us Juan Lang MD LAB BLOOD ORDERABLES Final Res ult [facility] ([place]) [facility] Department [place] [address] * Differential, auto (12/22/2022 12:39 PM CDT) Neutrophil abs 5.6 1.7 - 6.5 K/cumm [facility] ([place]) Imm gran abs 0.1 0.0 - 0.1 K/cumm [facility] ([place]) Lymphocyte abs 1.0 0.8 - 3.3 K/cumm [facility] ([place]) Monocyte abs 0.6 0.2 - 0.8 K/cumm [facility] ([place]) Eosinophil abs 0.2 0.0 - 0.5 K/cumm [facility] ([place]) Basophil abs 0.1 0.0 - 0.1 K/cumm [facility] ([place]) Neutrophil pct 74.8 % [facility] ([place]) Comment: Interpretive [...] was last revised on 2017. Monocyte pct 7.7 % [facility] ([place]) Comment: Interpretive Data Percent cell count reference ranges are not reported, since discordance with absolute values may lead to misinterpretation of CBC data. Current Interpretive Data was last revised on 2017. Eosinophil pct 3.1 % [facility] ([place]) Comment: Interpretive Data Percent cell count reference ranges are not reported, since discordance with absolute values may lead to misinterpretation of CBC data. Current Interpretive Data was last revised on 2017. Basophil pct 0.7 % [facility] ([place]) Comment: Interpretive Data Percent cell count reference ranges are not reported, since discordance with absolute values may lead to misinterpretation of CBC data. Current Interpretive Data was last revised on 2017. Blood 12/22/2022 12:3 9 PM CDT 12/22/2022 12:41 PM CDT us Juan Lang MD LAB BLOOD ORDERABLES Final Res ult [facility] ([place] Department [place] [address] * (ABNORMAL) Comprehensive metabolic panel (12/22/2022 12:39 PM CDT) Sodium 130(L) 135 - 145 mmol/L [facility] ([place]) Potassium, pl 4.5 3.3 - 4.9 mmol/L [facility] ([place]) Chloride 89(L) 97 - 110 mmol/L [facility] ([place]) CO2 30 22 - 32 mmol/L [facility] ([place]) Anion gap 11 2 - 15 mmol/L [facility] ([place]) BUN 36(H) 6 - 25 mg/dL [facility] ([place]) Creatinine 1.79(H) 0.60 - 1.10 mg/dL [facility] ([place]) Glucose 92 70 - 199 mg/dL [facility] ([place]) [...] 10.3 mg/dL [facility] ([place]) Bilirubin, total 0.5 0.1 - 1.2 mg/dL [facility] ([place]) Protein, pl 7.2 6.5 - 8.5 g/dL [facility] ([place]) Albumin 3.7 3.5 - 5.0 g/dL [facility] ([place]) Alk phos 110 40 - 130 Units/L [facility] ([place]) ALT 11 7 - 45 Units/L [facility] ([place]) AST 17 10 - 45 Units/L [facility] ([place]) Blood 12/22/2022 12:3 9 PM CDT 12/22/2022 12:41 PM CDT us Juan Lang MD LAB BLOOD ORDERABLES Final Res ult [facility] [place] [address] * (ABNORMAL) CBC with auto differential (12/22/2022 12:39 PM CDT) WBC 7.4 3.8 - 9.9 K/cumm [facility] ([place]) Hgb 14.3 11.9 - 15.5 g/dL [facility] ([place]) Hct 44.1 35.6 - 45.5 % [facility] ([place]) Plt 333 150 - 400 K/cumm [facility] ([place]) MPV 8.9(L) 9.1 - 12.3 fL [facility] ([place]) RBC 5.24(H) 3.90 - 5.20 M/cumm [facility] ([place]) MCV 84.2 81.3 - 96.4 fL [facility] ([place]) MCH 27.3 27.1 - 33.3 pg [facility] ([place]) MCHC 32.4 32.3 - 35.7 g/dL [facility] ([place]) RDW CV 13.3 11.1 - 14.9 % [facility] ([place]) RDW SD 41.1 35.7 - 48.1 fL [facility] ([place]) NRBC abs 0.00 0.00 - 0.01 K/cumm [facility] ([place]) Blood 12/22/2022 12:3 9 PM CDT 12/22/2022 12:41 PM CDT us Juan Lang MD LAB BLOOD ORDERABLES Final Res ult [facility] ([place]) 1 [facility] Department [place] [address] * ECG 12 lead (12/22/2022 12:34 PM CDT) 12/22/2022 12:3 4 PM CDT Narrative [facility] - 12/22/2022 1:46 PM CDT Vent Rate: 70 bpm RR Interval: 856 msec [place] Interval: 0 msec QRS Duration: 82 msec QT Interval: 396 msec QTC Interval: 416 msec P-R-T [place]: 0 - 74 - 37 degrees ATRIAL FIBRILLATION ABNORMAL RHYTHM ECG No change from prior EKG Electronically Signed By: Stalin Arauz MD Juan Lang MD ECG ORDERABLES Edited Result - Final [facility] documented in this encounter Visit Diagnoses Diagnosis Colitis- Primary Other and unspecified noninfectious gastroenteritis and colitis documented in this encounter Administered Medications Inactive Administered Medications - up to 3 most recent administrations Medication Order MAR Action Action Date Dose Rate Site levoFLOXacin (LEVAQUIN) tablet 500 mg 500 mg, oral, Once, On [place] 12/22/22 at 1410, For 1 dose, Give 2 hrs before or 2 hrs after MVI, antacids, or other products containing sucralfate, magnesium, aluminum, iron, or zinc. May be taken without regard to meals., Indications: Abdominal/Pelvic InfectionIndications:Abdominal/Pel bindu Infection Given 12/22/2022 2:35 PM CDT 500 mg metroNIDAZOLE (FLAGYL) tablet 500 mg 500 mg, oral, Once, On [place] 12/22/22 at 1410, For 1 dose, Indications: Abdominal/Pelvic InfectionIndications:Abdominal/Pel bindu Infection Given 12/22/2022 2:35 PM CDT 500 mg documented in this encounter Active and Recently Administered Medications Times are shown in CDT. Scheduled Medication Order 12/20/2022 12/21/2022 12/22/2022 levoFLOXacin (LEVAQUIN) tablet 500 mg (COMPLETED) 500 mg, oral, Once, On [place] 12/22/22 at 1410, For 1 dose, Give 2 hrs before or 2 hrs after MVI, antacids, or other products containing sucralfate, magnesium, aluminum, iron, or zinc. May be taken without regard to meals., Indications: Abdominal/Pelvic Infection 1435 (Given - Provid er: Yasmine Horowitz RN) metroNIDAZOLE (FLAGYL) tablet 500 mg (COMPLETED) 500 mg, oral, Once, On [place] 12/22/22 at 1410, For 1 dose, Indications: Abdominal/Pelvic Infection 1435 (Given - Provid er: Yasmine Horowitz RN) documented in this encounter Care Teams Supervisor Modern Languages Relationship Specialty Start Date End Date Pepper Morgan MD PCP - General 09/16/16 Hank Garibay MD [address] [facility] [address] WARNER Sheridan [facility] [address] [place] [address] Surgeon Orthopedic Surgery 03/27/17 Jacky Murry MD [address] [facility] [address] WARNER Sher[place] [address] [address] Ophthalmology 03/27/17 Puma Mckenzie MD [address] [facility] [address] WARNER Sheridan [address] [address] Surgeon Orthopedic Surgery 07/11/19 Neha Jackson, PT Physical Therapist Physical Therapy 12/01/21 Stalin Arauz MD [address] [facility] [address] [place] [address] Consulting Physician Cardiology 12/08/22 documented as of this encounter
--- OUTSIDE RECORDS SUMMARY | 2024-06-18 18:54 | XMS_ITS | Encounter Summary ---
Author Organization [facility] Address [address] [facility] [address] [place] [address] Care Team Providers Care Automatic Beam Warper Tender Name Role Phone Pepper Morgan MD Primary Care Provider + [phone] Hank Garibay MD Unavailable [phone] Jacky Murry MD Unavailable [phone] Puma Mckenzie MD Unavailable [phone] Neha Jackson PT Unavailable Unavailable Reason for Visit * Reason Onset Date Comments Diarrhea 12/05/2022 Encounter Details Date Type Department Care Team (Late st Contact Info) Description 12/05/2022 Telephone [facility] [address] [place] [address] Pepper Morgan MD [address] [place] [address] Diarrhea Social History Tobacco Use Types Packs/Day [...] on file 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 Patient said she had loose stools all last week. On Monday she had really bad cramps and diarrhea. She said she started the BRAT diet yesterday and is feeling better today. She said she has not had a stool since last night. Reviewed BRAT diet and advancement as directed on protocol and she voiced understanding. Patient will call with any further concerns. * Telephone Encounter - Vickie Araujo - 12/05/2022 8:38 AM CDT Patient calling she has diarrhea really bad and started last week and got really back over the weekend. She isn't having runny stools like she was but she is cramping. She did eat some crackers because she ws hungry. She is still cramping in her stomach and she has a appt with kms on . [phone] [facility] documented in this encounter Plan of Treatment [...] on filedocumented in this encounter Care Teams Automatic Beam Warper Tender Relationship Specialty Start Date End Date Pepper Morgan MD PCP - General 09/16/16 Hank Garibay MD [address] [facility] [address] WARNER Sheridan [facility] [address] [place] [address] Surgeon Orthopedic Surgery 03/27/17 Jacky Murry MD [address] [facility] [address] WARNER Sheridan [facility] [address] [place] [address] Ophthalmology 03/27/17 Puma Mckenzie MD [address] [facility] [address] WARNER Sheridan [facility] [place] [address] Surgeon Orthopedic Surgery 07/11/19 Neha Jackson, PT Physical Therapist Physical Therapy 12/01/21 documented as of this encounter
--- OUTSIDE RECORDS SUMMARY | 2024-06-18 18:54 | XMS_ITS | Encounter Summary ---
Author Organization [facility] Address [address] [address] Care Team Providers Care Piece Jobber Name Role Phone Pepper Morgan MD Primary Care Provider Hank Garibay MD Unavailable [phone] Jacky Murry MD Unavailable [phone] Puma Mckenzie MD Unavailable [phone] Neha Jackson PT Unavailable Unavailable Reason for Referral * Consultation (Routine) - Closed Specialty Diagnoses / Procedures Referred By Contnahun t Referred To Contact Neurology Diagnoses Parkinson disease (HCC) Maude Harris NP [address] [facility] [address] [place] [address] Phone: tel: fax: Klaus Deshpande MD [address] [facility] [address] [place] [address] Phone: tel: fax: Referral ID Status Reason Start Date Expiration Date V isits Requested Visits Authorized [id number] Closed Specialty Services Required 11/01/2022 12/01/2023 1 1 Question Answer Please select the performing region: [facility] [[id number]] Please select the performing department: [facility] [[id number]] To provider: RUBY PEREZ [[id number]] # of visits: 1 Comments Schedule SOON Reason for Visit * Reason Comments Follow-up Encounter Details Date Type Department Care Team (Late st Contact Info) Description 11/01/2022 9:15 AM CDT Office Visit [place] [facility] at [address] [place] [address] Maude Harris NP [address] [place] [address] [address] [place] [address] 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 (Primary Dx); Peripheral arterial disease (HCC); Chronic atrial fibrillation (HCC); Atherosclerosis of [place] arteries of extremities with intermittent claudication, bilateral legs (HCC); Chronic heart failure with preserved ejection fraction (CMS/HCC) (HCC); Parkinson disease (CMS/HCC) (HCC) Social History Tobacco Use Types Packs/Day Years Used Date Smoking Tobacco: Former Cigarettes 1981 Smokeless Tobacco: Never Tobacco Cessation:Counseling Given: No Alcohol Use Standard Drinks/Week Comments Not Currently [...] on file 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 Gender Identity Not on file Sexual Orientation Not on file Occupation Industry Job Start Date Job End Date retired Not on file Not on file Not on file documented as of this encounter Last Filed Vital Signs Vital Sign Reading Time Taken Comments Blood Pressure 104/73 11/01/2022 9:28 AM CDT Pulse 79 11/01/2022 9:28 AM CDT Temperature - - Respiratory Rate - - Oxygen Saturation - - Inhaled Oxygen Concentration - - Weight 86.3 kg (190 lb 3.2 oz) 11/01/2022 9:28 A M CDT Height 152.4 cm (5') 11/01/2022 9:28 AM CDT Body Mass Index 37.15 11/01/2022 9:28 AM CDT documented in this encounter Progress Notes * Maude Harris NP - 11/01/2022 9:15 AM CDT Cardiology note Reason for Office Visit: Chief Complaint Patient presents with Follow-up History of Present Illness: Tess Benedict is [...] on the right, essentially stable from before. Review of Systems Constitutional: Positive for malaise/fatigue [...] heart failure) ([facility]/HCC) ([facility]) Cough DVT (deep venous thrombosis) ([facility]) ([facility]) 1976 upper left arm near [...] Types: Cigarettes Quit date: 1981 Years since quittin.3 Smokeless tobacco: Never Substance and Sexual Activity [...] facility-administered medications for this visit. Vitals BP 104/73 (BP Location: Right arm, Patient Position: Sitting) Pulse 79 Ht 152.4 cm (5') Wt 86.3 kg (190 lb 3.2 oz) LMP (LMP Unknown) BMI 37.15 kg/m?? Vitals: 11/01/22 0928 BP: 104/73 Pulse: 79 Wt Readings from Last 3 Encounters: 11/01/22 86.3 kg (190 lb 3.2 oz) 07/25/22 86.2 kg (190 lb) 06/08/22 85.3 kg (188 lb) Body mass index is 37.15 kg/m??. Physical Exam Constitutional: General: She is [...] pulses are present by Doppler, PT is faint On the left, Dorsalis pedis is strong [...] 05/23/2022 Lab Results Component Value Date SODIUM 135 09/23/2022 POTASSIUM 3.5 09/23/2022 CHLORIDE 94 (L) 09/23/2022 CO2 30 09/23/2022 ANIONGAP 11 09/23/2022 CK 114 11/09/2021 GLUCOSEUR Negative 10/25/2021 No results found for: BNP Lab Results Component Value Date SODIUM 135 09/23/2022 SODIUM 135 07/25/2022 SODIUM 131 (L) 05/26/2022 POTASSIUM 3.5 09/23/2022 POTASSIUM 2.7 (Critical) 07/25/2022 POTASSIUM 3.7 05/26/2022 CHLORIDE 94 (L) 09/23/2022 CHLORIDE 89 (L) 07/25/2022 CHLORIDE 92 (L) 05/26/2022 CO2 30 09/23/2022 CO2 33 (H) 07/25/2022 CO2 33 (H) 05/26/2022 BUNSER 55 (H) 09/23/2022 BUNSER 44 (H) 07/25/2022 BUNSER 15 05/26/2022 CREATININE 1.25 (H) 09/23/2022 CREATININE 0.98 07/25/2022 CREATININE 0.73 05/26/2022 GFRNAA 42 09/23/2022 GFRNAA 57 07/25/2022 GFRNAA 81 05/26/2022 GLUCOSE 106 09/23/2022 CALCIUM 9.6 09/23/2022 CALCIUM 10.0 07/25/2022 CALCIUM 9.3 05/26/2022 ALBUMIN 4.0 05/23/2022 ALBUMIN 3.5 11/08/2021 ALBUMIN 3.7 10/25/2021 PHOS 3.2 02/14/2017 PHOS 3.9 04/29/2014 Lab Results Component Value Date SODIUM 135 09/23/2022 POTASSIUM 3.5 09/23/2022 CHLORIDE 94 (L) 09/23/2022 CO2 30 09/23/2022 ANIONGAP 11 09/23/2022 BUNSER 55 (H) 09/23/2022 CREATININE 1.25 (H) 09/23/2022 GLUCOSE 106 09/23/2022 CALCIUM 9.6 09/23/2022 BILITOT 0.5 05/23/2022 PROT 6.6 11/08/2021 ALBUMIN [...] not seen. CTA runoff is recommended. JONATHAN 10/24/22 1. There is moderate arterial disease in [...] >50%). Ankle-brachial index in June 2022 1. Pqos-hb-jegnktps arterial insufficiency at rest in the right [...] waveform at the ankle. JONATHAN 10/24/2022 1. Vqgq-ms-hrkcmbsc arterial insufficiency at rest in the right [...] hyponatremia Plan Continue same medication regimen.stop pletal. Ok to take xarelto in addition to plavix given recentPTA Continue tight control of blood pressure and cholesterol. Continue diet, exercise, and weight reduction Her JONATHAN is stable and pulse exam is actually a little better on the right. Call if open leg sores. Her peripheral edema is better. Return to the office in 3 months with follow-up ankle-brachial index. She is on lasix 20 mg BID and metolazone 2.5 mg daily, will reduce to every other day. Diagnoses and all orders for this visit: 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 (Primary) Peripheral arterial disease (HCC) Chronic atrial fibrillation (HCC) Atherosclerosis of [place] arteries of extremities with intermittent claudication, bilateral legs (HCC) Chronic heart failure with preserved ejection fraction (CMS/HCC) ([facility]) No follow-ups on file. 11/01/2022 10:08 AM Maude Harris NP Cc:Pepper Morgan MD documented in this encounter Miscellaneous Notes * Addendum Note - Malena Nguyen - 11/01/2022 9:15 AM CDTAddended by: MALENA NGUYEN on: 11/01/2022 10:29 AM Modules accepted: Orders documented in this encounter Plan of Treatment Scheduled Referrals Name Type Priority Associated Diagnoses Order Schedule Ambulatory referral to Neurology Outpatient Referral Routine Parkinson disease (CMS/HCC) (HCC) Expected: 11/02/2022 (Approximate), Expires: 05/04/2024 documented as of this encounter Goals Goal [...] Diagnosis 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- Primary Essential hypertension, benign Peripheral arterial disease (HCC) Unspecified peripheral vascular disease Chronic atrial fibrillation (HCC) Atrial fibrillation Atherosclerosis of [place] arteries of extremities with intermittent claudication, bilateral legs (HCC) Chronic heart failure with preserved ejection fraction (CMS/HCC) (HCC) Parkinson disease (HCC) Paralysis agitans documented in this encounter Care Teams Piece Jobber Relationship Specialty Start Date End Date Pepper Morgan MD PCP - General 09/16/16 Hank Garibay MD [address] [facility] [address] WARNER [place] [address] [place] [address] Surgeon Orthopedic Surgery 03/27/17 Jacky Murry MD [address] [facility] [address] WARNER [place] [address] [place] [address] Ophthalmology 03/27/17 Puma Mckenzie MD [address] [facility] [address] WARNER [address] [place] [address] Surgeon Orthopedic Surgery 07/11/19 Neha Jackson PT Physical Therapist Physical Therapy 12/01/21 documented as of this encounter
--- OUTSIDE RECORDS SUMMARY | 2024-06-18 18:54 | XMS_ITS | Encounter Summary ---
Author Organization [facility] Address [address] [facility] [address] [place] [address] Care Team Providers Care Podiatry Assistant Name Role Phone Pepper Morgan MD Primary Care Provider + [phone] Hank Garibay MD Unavailable [phone] Jacky Murry MD Unavailable [phone] Puma Mckenzie MD Unavailable [phone] Neha Jackson PT Unavailable Unavailable Reason for Visit * Reason Onset Date Comments Med Refill 09/09/2022 Encounter Details Date Type Department Care Team (Late st Contact Info) Description 09/09/2022 Telephone [facility] [address] [place] [id number] Pepper Morgan MD [address] [place] [address] Med Refill Social History Tobacco Use Types [...] on file 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 Gender Identity Not on file Sexual Orientation Not on file Occupation Industry Job Start Date Job End Date retired Not on file Not on file Not on file documented as of this encounter Ordered Prescriptions Prescription Sig Dispense Quantity Refills Last Filled Start Date End Date propranoloL (INDERAL) 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: Hereditary essential tremor Take 1 tablet (20 mg total) by mouth 2 (two) times a day as needed (Tremor) 180 tablet 09/09/2022 12/08/2022 felodipine (PLENDIL) 5 mg 24 hr tabletIndications: 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 Take 1 tablet (5 mg total) by mouth daily 90 tablet 09/09/2022 12/08/2022 documented in this encounter Miscellaneous Notes * Telephone Encounter - Milana Fuentes RN - 09/09/2022 2:47 PM CDT felodipine (PLENDIL) 5 mg 24 hr tablet Take 1 tablet (5 mg total) by mouth daily, Starting Mon09/09/2022, Normal propranoloL (INDERAL) 20 mg tablet Take 1 tablet (20 mg total) by mouth 2 (two) times a day as needed (Tremor), Starting Mon09/09/2022, Normal Left a message the the rx were sent to the mail order pharmacy * Telephone Encounter - Evelyn Dejesus - 09/09/2022 9:07 AM CDT Patient calling to state that she needs new prescription sent to the pharmacy: propranolol 20mg andfelodipine 5mg [facility] Pt [id number] documented in this encounter Plan of Treatment [...] of this encounter Visit Diagnoses Diagnosis 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 Essential hypertension, benign Hereditary essential tremor Essential and other specified forms of tremor documented in this encounter Discontinued Medications Medication Sig Discontinue Reason Start Date End Da te felodipine (PLENDIL) 5 mg 24 hr tabletIndications: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 Take 1 tablet (5 mg total) by mouth daily Reorder 06/19/2022 09/09/2022 propranoloL (INDERAL) 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:Heredit elmer essential tremor Take 1 tablet (20 mg total) by mouth 2 (two) times a day as needed (Tremor) Reorder 06/19/2022 09/09/2022 documented as of this encounter Care Teams Podiatry Assistant Relationship Specialty Start Date End Date Pepper Morgan MD PCP - General 09/16/16 Hank Garibay MD [address] [facility] [address] WARNER Sher[place] [address] [place] [address] Surgeon Orthopedic Surgery 03/27/17 Jacky Murry MD [address] [facility] [address] WARNER Sher[place] [address] [place] [address] Ophthalmology 03/27/17 Puma Mckenzie MD [address] [facility] [address] WARNER Sher[place] [address] [place] [address] Surgeon Orthopedic Surgery 07/11/19 Neah Jackson, PT Physical Therapist Physical Therapy 12/01/21 documented as of this encounter
--- OUTSIDE RECORDS SUMMARY | 2024-06-18 18:54 | XMS_ITS | Encounter Summary ---
Author Organization [facility] Address [address] [facility] [address] [place] [address] Care Team Providers Care Centerless Grinder Set Up Operator Name Role Phone Pepper Morgan MD Primary Care Provider + [phone] Hank Garibay MD Unavailable [phone] Jacky Murry MD Unavailable [phone] Puma Mckenzie MD Unavailable [phone] Neha Jackson PT Unavailable Unavailable Stalin Arauz MD Unavailable [phone] Tiffany Rojas Unavailable [phone] Encounter Details Date Type Department Care Team (Late st Contact Info) Description 01/02/2023 Telephone [place] Gear Technician at [address] [place] [address] Hai Dalton MA Social History [...] on file 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 She states once being home from hospital her weight went up 10 pounds so she started herself back on the water pills and she is also asking about starting Jardiance. She started back on furosemide 40mg BID and metolazone 2.5 every other day. Her f/u is on 02/07/23 documented in this encounter Plan of Treatment [...] on filedocumented in this encounter Care Teams Centerless Grinder Set Up Operator Relationship Specialty Start Date End Date Pepper Morgan MD PCP - General 09/16/16 Hank Garibay MD [address] [facility] [address] WARNER Sher[place] [address] [place] [address] Surgeon Orthopedic Surgery 03/27/17 Jacky Murry MD [address] [facility] [address] [place] [address] Ophthalmology 03/27/17 Puma Mckenzie MD [address] [facility] [address] WARNER Sheridan [facility] [address] [place] [address] Surgeon Orthopedic Surgery 07/11/19 Neha Jackson, PT Physical Therapist Physical Therapy 12/01/21 Stalin Arauz MD [address] [facility] [address] [place] [address] Consulting Physician Cardiology 12/08/22 Tiffany Rojas PA [address] [facility] [address] [place] [address] Gastroenterology 12/30/22 documented as of this encounter
--- OUTSIDE RECORDS SUMMARY | 2024-06-18 18:54 | XMS_ITS | Encounter Summary ---
Author Organization [facility] Address [address] [facility] [address] [place] [address] Care Team Providers Care Corporate Fitness Program Coordinator Name Role Phone Pepper Morgan MD Primary Care Provider [phone] Hank Garibay MD Unavailable [phone] Jacky Murry MD Unavailable [phone] Puma Mckenzie MD Unavailable [phone] Neha Jackson PT Unavailable Unavailable Stalin Arauz MD Unavailable [phone] Tiffany Rojas PA Unavailable [phone] Encounter Details Date Type Department Care Team (Late st Contact Info) Description 01/03/2023 Orders Only [place] Pearl Technician at [address] [place] [address] Stalin Arauz MD [address] [place] [address] [address] [place] [address] Chronic heart failure with preserved [...] often do you attend chur ch or shinto services? 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 Calcium 9.0 8.5 - 10.3 mg/dL [facility] ([place]) Blood 01/06/2023 11:0 0 AM CDT 01/06/2023 11:56 AM CDT us Stalin Arauz MD LAB BLOOD ORDERABLES Final Resu lt [facility] ([place]) [facility] Department [place] [address] documented in this encounter Visit Diagnoses Diagnosis Chronic heart failure with preserved ejection fraction (CMS/HCC) (HCC)- Primary documented in this encounter Care Teams Corporate Fitness Program Coordinator Relationship Specialty Start Date End Date Pepper Morgan MD PCP - General 09/16/16 Hank Garibay MD [address] [place] [address] DR WARNER Sher[place] [address] [place] [address] Surgeon Orthopedic Surgery 03/27/17 Jacky Murry MD [address] [place] [address] DR WARNER Sher[place] [address] [place] [address] Ophthalmology 03/27/17 Puma Mckenzie MD [address] [facility] [address] WARNER Sheridan [facility] [address] [place] [address] Surgeon Orthopedic Surgery 07/11/19 Neha Jackson, PT Physical Therapist Physical Therapy 12/01/21 Stalin Arauz MD [address] [facility] [address] [place] [address] Consulting Physician Cardiology 12/08/22 Tiffany Rojas PA [address] [facility] [address] [place] [address] Gastroenterology 12/30/22 documented as of this encounter
--- OUTSIDE RECORDS SUMMARY | 2024-06-18 18:54 | XMS_ITS | Encounter Summary ---
Author Organization [facility] Address [address] [facility] [address] [place] [address] Care Team Providers Care Barrel Leveler Name Role Phone Pepper Morgan MD Primary Care Provider +- [phone] Hank Garibay MD Unavailable [phone] Jacky Murry MD Unavailable [phone] Puma Mckenzie MD Unavailable [phone] Neha Jackson PT Unavailable Unavailable Encounter Details Date Type Department Care Team (Late st Contact Info) Description 07/19/2022 Orders Only [employer] Marker at [address] [place] [address] Stalin Arauz MD [address] [place] [address] [address] [place] [address] Shortness of breath (Primary Dx) Social History Tobacco Use Types [...] file 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 Blood 07/25/2022 9:27 AM MACHINE WOODWORKING SANDER 07/25/2022 10:15 AM MACHINE WOODWORKING SANDER us Stalin Arauz MD LAB BLOOD ORDERABLES Final Resu lt [facility] ([place]) 1 [facility] [place] [address] * (ABNORMAL) Basic metabolic panel (07/25/2022 9:27 AM MACHINE WOODWORKING SANDER) Sodium 135 135 - 145 mmol/L [facility] [...] Anion gap 13 2 - 15 mmol/L [facility] ([place]) BUN 44(H) 8 - 25 mg/dL [facility] ([place]) Creatinine 0.98 0.60 - 1.10 mg/dL [facility] ([place]) Glucose 103 70 - 199 mg/dL [facility] ([place]) Comment: Interpretive Data Fasting glucose [...] 2022. Calcium 10.0 8.5 - 10.3 mg/dL [facility] ([place]) Blood 07/25/2022 9:27 AM MACHINE WOODWORKING SANDER 07/25/2022 10:15 AM MACHINE WOODWORKING SANDER us Stalin Arauz MD LAB BLOOD ORDERABLES Final Resu lt [facility] ([place] [address] [facility] [place] [address] documented in this encounter Visit Diagnoses Diagnosis Shortness of breath- Primary documented in this encounter Care Teams Barrel Leveler Relationship Specialty Start Date End Date Pepper Morgan MD PCP - General 09/16/16 Hank Garibay MD [address] [place] [address] [address] [place] [address] Surgeon Orthopedic Surgery 03/27/17 Jacky Murry MD [address] [place] [address] [address] [place] [address] Ophthalmology 03/27/17 Puma Mckenzie MD [address] [facility] [address] [address] Surgeon Orthopedic Surgery 07/11/19 Neha Jackson, PT Physical Therapist Physical Therapy 12/01/21 documented as of this encounter
--- OUTSIDE RECORDS SUMMARY | 2024-06-18 18:54 | XMS_ITS | Encounter Summary ---
Author Organization [facility] Address [address] [facility] [address] [place] [address] Care Team Providers Care Keno Writer/Runner Name Role Phone Pepper Morgan MD Primary Care Provider + [phone] Hank Garibay MD Unavailable [phone] Jacky Murry MD Unavailable [phone] Puma Mckenzie MD Unavailable [phone] Neha Jackson PT Unavailable Unavailable Encounter Details Date Type Department Care Team (Late st Contact Info) Description 07/22/2022 Telephone [facility] [address] [place] [address] Pepper Morgan MD [address] [place] [address] Social History Tobacco Use Types Packs/Day Years Used Date Smoking Tobacco: Former Cigarettes 2 18 07 95 - 1981 Smokeless Tobacco: Never Alcohol [...] file Legal Sex Female 4:33 AM LIVESTOCK BUYER Gender Identity Not on file Sexual Orientation Not on file Occupation Industry Job Start Date Job End Date retired Not on file Not on file Not on file documented as of this encounter Miscellaneous Notes * Telephone Encounter - Lacie Alicea MA - 07/26/2022 9:17 AM LIVESTOCK BUYER I have called pharmacy and verified that patient is to take both plavix and xarelto per Dr. Arauz. Pharmacy is also aware he will be taking over both medications. Dcoers store clerk checker STOCK BUYER * Telephone Encounter - Katy Lopes RN - 07/25/2022 9:08 AM LIVESTOCK BUYER TO Dr. Arauz: Please see previous message regarding Xarelto and advise. Patient is also scheduled with you today. Thank you. STOCK BUYER * Telephone Encounter - Katy Lopes RN - 07/25/2022 9:08 AM LIVESTOCK BUYER Images from the original note were not included. Pepper Morgan MD to Lacie Alicea MA [facility] Staff Pool 8:11 PM As of 04/18/2022 Dr. Arauz wanted her on Plavix and Eliquis, her insurance will not cover Eliquis and they made her go to Xarelto. If they want to know if he wants to have her stay on Xarelto and Eliquis please have them send the message to Dr. Arauz. Also reques his advice on who should be the prescriber on all the anticoagulants. It is probably best that they are managed together and since he will be deciding on Plavix based on her peripheral artery disease and his stenting it would probably be best for him to prescribe the Xarelto and the Plavix Dr. Morgan STOCK BUYER * Telephone Encounter - Corazon Sullivan - 07/22/2022 10:21 AM CST Fax clarification Xarelto tab 20 mg Please clarify - this medication interacts with the patients current medication Clopidogrel Tab 75 mg. Please respond with the appropriate changes. STOCK BUYER documented in this encounter Plan of Treatment [...] on filedocumented in this encounter Care Teams Keno Writer/Runner Relationship Specialty Start Date End Date Pepper Morgan MD PCP - General 09/16/16 Hank Garibay MD 4 [facility] [address] [place] [address] Surgeon Orthopedic Surgery 03/27/17 Jacky Murry MD 4 [facility] [address] [place] [address] Ophthalmology 03/27/17 Puma Mckenzie MD 4 [facility] [address] [place] [address] Surgeon Orthopedic Surgery 07/11/19 Neha Jackson, PT Physical Therapist Physical Therapy 12/01/21 documented as of this encounter
--- OUTSIDE RECORDS SUMMARY | 2024-06-18 18:54 | XMS_ITS | Encounter Summary ---
Author Organization [facility] Address [address] [facility] [address] [place] [address] Care Team Providers Care Direct Customer Service Representative Name Role Phone Pepper Morgan MD Primary Care Provider + [phone] Hank Garibay MD Unavailable [phone] Jacky Murry MD Unavailable [phone] Puma Mckenzie MD Unavailable [phone] Neha Jackson PT Unavailable Unavailable Encounter Details Date Type Department Care Team (Late st Contact Info) Description 09/21/2022 Orders Only [place] Primer Waterproofing Machine Adjuster at [address] [place] [address] Stalin Arauz MD [address] [place] [address] [address] [place] [address] Chronic heart failure with preserved ejection fraction [...] on file Legal Sex Female 4:33 AM VETERINARY PATHOLOGIST Gender Identity Not on file Sexual Orientation [...] Results * (ABNORMAL) Pro B-type natriuretic peptide (09/23/2022 [...] ORDERABLES Final Resu lt [facility] [address] [facility] [place] [address] * (ABNORMAL) Basic metabolic panel (09/23/2022 11:15 AM CDT) Sodium 135 135 - 145 mmol/L [facility] ([place]) Potassium, pl 3.5 3.3 - 4.9 mmol/L [facility] ([place]) Chloride 94(L) 97 - 110 mmol/L [facility] ([place]) CO2 30 22 - 32 mmol/L [facility] ([place]) Anion gap 11 2 - 15 mmol/L [facility] ([place]) BUN 55(H) 8 - 25 mg/dL [facility] ([place]) Creatinine 1.25(H) 0.60 - 1.10 mg/dL [facility] ([place]) Glucose 106 70 - 199 mg/dL [facility] ([place]) [...] Calcium 9.6 8.5 - 10.3 mg/dL [facility] ([place]) Blood 09/23/2022 11:1 5 AM CDT 09/23/2022 11:21 AM CDT us Stalin Arauz MD LAB BLOOD ORDERABLES Final Resu lt [facility] ([place]) [address] [facility] [place] [address] documented in this encounter Visit Diagnoses Diagnosis Chronic heart failure with preserved ejection fraction (CMS/HCC) (HCC)- Primary documented in this encounter Care Teams Direct Customer Service Representative Relationship Specialty Start Date End Date Pepper Morgan MD PCP - General 09/16/16 Hank Garibay MD [address] [facility] [address] [place] [address] Surgeon Orthopedic Surgery 03/27/17 Jacky Murry MD [address] [place] [address] [address] [place] [address] Ophthalmology 03/27/17 Puma Mckenzie MD [address] [facility] [place] [address] Surgeon Orthopedic Surgery 07/11/19 Neha Jackson, PT Physical Therapist Physical Therapy 12/01/21 documented as of this encounter
--- OUTSIDE RECORDS SUMMARY | 2024-06-18 18:54 | XMS_ITS | Encounter Summary ---
Author Organization [facility] Medical [facility] Address [address] [address] Care Team Providers Care Telegraph Messenger Name Role Phone Pepper Morgan MD Primary Care Provider + [phone] Hank Garibay MD Unavailable [phone] Jacky Murry MD Unavailable [phone] Puma Mckenzie MD Unavailable [phone] Neha Jackson PT Unavailable Unavailable Encounter Details Date Type Department Care Team (Late st Contact Info) Description 08/23/2022 Telephone [facility] Orthopedic and Sports Medicine [address] [place] [address] Puma Mckenzie MD [address] [place] [address] [address] Social History Tobacco Use Types Packs/Day Years [...] on file Legal Sex Female 4:33 AM FOOD SERVICE AIDE Gender Identity Not on file Sexual Orientation Not on file Occupation Industry Job Start Date Job End Date retired Not on file Not on file Not on file documented as of this encounter Miscellaneous Notes * Telephone Encounter - Valerie Braswell MA - 08/23/2022 1:10 PM CST Returned call to let her know there are no orders in her chart from dr mckenzie and to call her physician who usually orders it to see if they possibly made a mistake. Questions were answered. SERVICE AIDE * Telephone Encounter - Daxa Arguello - 08/23/2022 11:55 AM CST Patient called and states she saw something in her MyChart stating that she has some kind of protime appt from Dr. Mckenzie and she doesn't know what that is or means and would like someone to please return her call. SERVICE AIDE documented in this encounter Plan of Treatment [...] on filedocumented in this encounter Care Teams Telegraph Messenger Relationship Specialty Start Date End Date Pepper Morgan MD PCP - General 3/31/17 Hank Garibay MD [address] [facility] [address] [place] [address] Surgeon Orthopedic Surgery 03/27/17 Jacky Murry MD [address] [facility] [address] [place] [address] Ophthalmology 03/27/17 Puma Mckenzie MD [address] [facility] [address] [place] [address] Surgeon Orthopedic Surgery 07/11/19 Neha Jackson, PT Physical Therapist Physical Therapy 12/01/21 documented as of this encounter
--- OUTSIDE RECORDS SUMMARY | 2024-06-18 18:54 | XMS_ITS | Encounter Summary ---
Author Organization [facility] Address [address] [facility] [address] [place] [address] Care Team Providers Care Interior Decorator Painting Name Role Phone Pepper Morgan MD Primary Care Provider + [phone] Hank Garibay MD Unavailable [phone] Jacky Murry MD Unavailable [phone] Puma Mckenzie MD Unavailable [phone] Neha Jackson PT Unavailable Unavailable Stalin Arauz MD Unavailable [phone] Encounter Details Date Type Department Care Team (Late st Contact Info) Description 12/09/2022 Telephone [place] Tray Server at [address] [place] [address] Hai Dalton MA Social History [...] on file Legal Sex Female 4:33 AM INTERNAL CARVER Gender Identity Not on file Sexual Orientation Not on file Occupation Industry Job Start Date Job End Date retired Not on file Not on file Not on file documented as of this encounter Miscellaneous Notes * Telephone Encounter - Hai Dalton MA - 12/09/2022 2:47 PM CDT Left message with appt date and time to discuss adding Jardiance. Patient to call back with any questions. documented in this encounter Plan of Treatment [...] on filedocumented in this encounter Care Teams Interior Decorator Painting Relationship Specialty Start Date End Date Pepper Morgan MD PCP - General 09/16/16 Hank Garibay MD [address] [facility] [address] [place] [address] Surgeon Orthopedic Surgery 03/27/17 Jacky Murry MD [address] [facility] [address] [place] [address] Ophthalmology 03/27/17 Puma Mckenzie MD [address] [facility] [address] [place] [address] Surgeon Orthopedic Surgery 07/11/19 Neha Jackson, PT Physical Therapist Physical Therapy 12/01/21 Stalin Arauz MD [address] [facility] [address] [place] [address] Consulting Physician Cardiology 12/08/22 documented as of this encounter
--- OUTSIDE RECORDS SUMMARY | 2024-06-18 18:54 | XMS_ITS | Encounter Summary ---
Author Organization [facility] Address [address] [facility] [address] [place] [address] Care Team Providers Care Jelly Filter Tender Name Role Phone Pepper Morgan MD Primary Care Provider + [phone] Hank Garibay MD Unavailable [phone] Jacky Murry MD Unavailable [phone] Puma Mckenzie MD Unavailable [phone] Neha Jackson PT Unavailable Unavailable Stalin Arauz MD Unavailable [phone] Encounter Details Date Type Department Care Team (Late st Contact Info) Description 11/09/2022 Telephone [facility] [address] [facility] [address] [place] [address] Klaus Deshpande MD [address] [place] [address] [address] [place] [address] Social History Tobacco Use Types Packs/Day Years [...] on file Legal Sex Female 4:33 AM MAINTENANCE SHOP TECHNICIAN Gender Identity Not on file Sexual Orientation Not on file Occupation Industry Job Start Date Job End Date retired Not on file Not on file Not on file documented as of this encounter Miscellaneous Notes * Telephone Encounter - Radha Brooks MA - 11/11/2022 8:16 AM CDT Scheduled for 2pm * Telephone Encounter - Radha Brooks MA - 11/10/2022 3:51 PM CDT TR for andres scheduling * Telephone Encounter - Fabby Horn - 11/09/2022 3:49 PM CDT Pt is scheduled for a BAND SAW MARKER visit 01/02/23. Dr Pepper Morgan's office called asking if patient could be worked in any sooner? She is having issues with worsening tremors and walking. documented in this encounter Plan of Treatment Not on file documented as of this encounter Goals Goal Patient Goal Type Associated Problems Recent Progress Patient-Stated? Author [facility] Improving( 3:34 PM CDT) No Domitlia Garay, XU Note: Patient will establish a comfort-function goal and identify the pain level that will allow the patient to perform desired activities and achieve an acceptable quality of life. documented as of this encounter Visit Diagnoses Not on filedocumented in this encounter Care Teams Jelly Filter Tender Relationship Specialty Start Date End Date Pepper Morgan MD PCP - General 09/16/16 Hank Garibay MD [address] [facility] [address] [place] [address] Surgeon Orthopedic Surgery 03/27/17 Jacky Murry MD [address] [facility] [address] [place] [address] Ophthalmology 03/27/17 Puma Mckenzie MD [address] [facility] [address] [place] [address] Surgeon Orthopedic Surgery 07/11/19 Neha Jackson, PT Physical Therapist Physical Therapy 12/01/21 Stalin Arauz MD [address] [facility] [address] [place] [address] Consulting Physician Cardiology 12/08/22 documented as of this encounter
--- OUTSIDE RECORDS SUMMARY | 2024-06-18 18:54 | XMS_ITS | Encounter Summary ---
Author Organization [facility] Medical [facility] Address [address] [facility] [address] [place] [address] Care Team Providers Care Geomatics Professor Name Role Phone Pepper Morgan MD Primary Care Provider + [phone] Hank Garibay MD Unavailable [phone] Jacky Murry MD Unavailable [phone] Puma Mckenzie MD Unavailable [phone] Neha Jackson PT Unavailable Unavailable Reason for Visit * Reason Onset Date Comments med was sent to the wrong place 07/25/2022 Encounter Details Date Type Department Care Team (Late st Contact Info) Description 07/25/2022 Telephone [facility] [address] [place] [phone] Pepper Morgan MD [address] [place] [address] med was sent to the wrong place Social History Tobacco Use Types Packs/Day Years [...] on file Legal Sex Female 4:33 AM EMR TRAINER Gender Identity Not on file Sexual Orientation Not on file Occupation Industry Job Start Date Job End Date retired Not on file Not on file Not on file documented as of this encounter Miscellaneous Notes * Telephone Encounter - Lacie Alicea MA - 07/25/2022 9:07 AM EMR TRAINER I called and left vm for patient to call back. We sent medication to the right place the problem isthey have that she is taking both plavix and xarelto and they interact. She needs to call back withwhich one she is taking. If she is taking both. It will have to go to Dr. Arauz.dcoers dental hygiene teacher TRAINER * Telephone Encounter - Vickie Araujo - 07/25/2022 8:14 AM CST Patient thinks her meds were [facility] the wrong [facility]. [facility] [place] They said they cannot process going because they tried to call us but they would like us to call the pharmacy. It was on the xarelto. [phone] this is the pharmacy customer care. Cbn: [phone] TRAINER documented in this encounter Plan of Treatment [...] on filedocumented in this encounter Care Teams Geomatics Professor Relationship Specialty Start Date End Date Pepper Morgan MD PCP - General 09/16/16 Hank Garibay MD [address] [facility] [address] [place] [address] Surgeon Orthopedic Surgery 03/27/17 Jacky Murry MD [address] [place] [address] [address] [place] [address] Ophthalmology 03/27/17 Puma Mckenzie MD [address] [place] [address] [address] [place] [address] Surgeon Orthopedic Surgery 07/11/19 Neha Jackson, PT Physical Therapist Physical Therapy 12/01/21 documented as of this encounter
--- OUTSIDE RECORDS SUMMARY | 2024-06-18 18:54 | XMS_ITS | Encounter Summary ---
Author Organization [facility] Address [address] [facility] [address] [place] [address] Care Team Providers Care Mold Builder Name Role Phone Pepper Morgan MD Primary Care Provider + [phone] Hank Garibay MD Unavailable [phone] Jacky Murry MD Unavailable [phone] Puma Mckenzie MD Unavailable [phone] Neha Jackson PT Unavailable Unavailable Encounter Details Date Type Department Care Team (Late st Contact Info) Description 09/21/2022 Telephone [place] Commissioning Engineer at [address] [place] [address] Hai Dalton MA Social History Tobacco [...] on file Legal Sex Female 4:33 AM RELOCATION SPECIALIST Gender Identity Not on file Sexual Orientation Not on file Occupation Industry Job Start Date Job End Date retired Not on file Not on file Not on file documented as of this encounter Miscellaneous Notes * Telephone Encounter - Hai Dalton MA - 09/21/2022 3:03 PM CDT Patient advised * Telephone Encounter - Hai Dalton MA - 09/21/2022 3:01 PM CDT Showed message to RAW STOCK MACHINE FEEDER Maude Harris since patient is already taking what was recommended by SB. Per Kerry pt to bump up metolazone to 5mg for the next 3 days and be sure to get labs done. * Telephone Encounter - Hai Dalton MA - 09/21/2022 9:12 AM CDT Patient called back and said she had her medications wrong. Now states she is taking Lasix 40mg BIDand metolazone 2.5 every day along with spironolactone 25mg BID. Please advise * Telephone Encounter - Hai Dalton MA - 09/21/2022 8:27 AM CDT Patient called stating she has SOB and coughing with 3lb weight gain this week. When I asked patient of her current diuretic doses she is insistent that she is taking Lasix 20mg BID and metoloazone 2.5mg BID. Please advise. I have already ordered BMP and BNP documented in this encounter Plan of Treatment [...] on filedocumented in this encounter Care Teams Mold Builder Relationship Specialty Start Date End Date Pepper Morgan MD PCP - General 09/16/16 Hank Garibay MD [address] [facility] [address] [place] [address] Surgeon Orthopedic Surgery 03/27/17 Jacky Murry MD [address] [place] [address] [address] [place] [address] Ophthalmology 03/27/17 Puma Mckenzie MD [address] [facility] [address] [place] [address] Surgeon Orthopedic Surgery 07/11/19 Neha Jackson, KEVIN Physical Therapist Physical Therapy 12/01/21 documented as of this encounter
--- OUTSIDE RECORDS SUMMARY | 2024-06-18 18:55 | XMS_ITS | Encounter Summary ---
Author Organization [facility] Medical [facility] Address [address] [facility] [address] [place] [address] Care Team Providers Care Recording Clerk Name Role Phone Pepper Morgan MD Primary Care Provider + [phone] Hank Garibay MD Unavailable [phone] Jacky Murry MD Unavailable [phone] Puma Mckenzie MD Unavailable [phone] Neha Jackson PT Unavailable Unavailable Encounter Details Date Type Department Care Team (Late st Contact Info) Description 05/30/2022 Telephone [place] Food Beverage Attendant at [address] [place] [address] Malena Gage Social History Tobacco Use Types Packs/Day Years Used Date Smoking Tobacco: Former Cigarettes 952 - 1981 Smokeless Tobacco: Never Alcohol [...] points, staff should administer the PHQ-9) 0 12/22/2021 Comments No Sex and Gender Information Value Date Recorded Sex Assigned at Not on file Legal Sex Female 4:33 AM BRAIN PICKER Gender Identity Not on file Sexual Orientation Not on file Occupation Industry Job Start Date Job End Date retired Not on file Not on file Not on file documented as of this encounter Miscellaneous Notes * Telephone Encounter - Malena Gage - 05/30/2022 1:24 PM CST error N PICKER documented in this encounter Plan of Treatment [...] on filedocumented in this encounter Care Teams Recording Clerk Relationship Specialty Start Date End Date Pepper Morgan MD PCP - General 09/16/16 Hank Garibay MD 4 [facility] [facility] [address] [place] [address] Surgeon Orthopedic Surgery 03/27/17 Jacky Murry MD 4 [facility] [place] [facility] [address] [place] [address] Ophthalmology 03/27/17 Puma Mckenzie MD [address] [place] [address] [address] [place] [address] Surgeon Orthopedic Surgery 07/11/19 Neha Jackson, PT Physical Therapist Physical Therapy 12/01/21 documented as of this encounter
--- OUTSIDE RECORDS SUMMARY | 2024-06-18 18:55 | XMS_ITS | Encounter Summary ---
Author Organization [facility] Medical Group Address [address] [facility] [address] [place] [address] Care Team Providers Care Supervisor Plastic Sheets Name Role Phone Pepper Morgan MD Primary Care Provider Hank Garibay MD Unavailable [phone] Jacky Murry MD Unavailable [phone] Puma Mckenzie MD Unavailable [phone] Neha Jackson PT Unavailable Unavailable Reason for Visit * Diagnostic Imaging (Routine) - Closed Specialty Diagnoses / Procedures Referred By Contac t Referred To Contact Diagnoses Fall, initial encounter Left hip pain Hx of bilateral hip replacements Procedures XR Hip Left W Pelvis 2 or 3 Views Pepper Morgan MD [address] [place] [address] Phone: tel: fax: [facility] Referral ID Status Reason Start Date Expiration Date Visits Re quested Visits Authorized [id number] Closed 06/08/2022 07/08/2023 1 1 Encounter Details Date Type Department Care Team (Latest Contact Info) Description 06/08/2022 12:00 PM TIBCO DEVELOPER Ancillary Procedure [facility] [address] [place] [phone] Fall, initial encounter; Left hip pain; Hx of bilateral hip replacements Social History Tobacco Use Types Packs/Day Years [...] on file Legal Sex Female 4:33 AM TIBCO DEVELOPER Gender Identity Not on file Sexual [...] Name Priority Date/Time Associated Diagnosis Comments XR HIP LEFT W PELVIS 2 OR 3 VIEWS Schedule TOM, Read TOM (Appt Today, Awaiting Results) 06/08/2022 11:58 AM TIBCO DEVELOPER Fall, initial encounter Left hip pain Hx of bilateral hip replacements documented in this encounter Results * XR Hip Left W Pelvis 2 or 3 Views (06/08/2022 11:58 AM TIBCO DEVELOPER) Anatomical Region Laterality Modality Lower Extremities, Hip, Pelvis Left C omputed Radiography Narrative 06/08/2022 12:58 PM TIBCO DEVELOPER PELVIS: patient is status post bilateral total hip arthroplasty. ??The hardware is well position without failure complication. ??No fracture or dislocation identified. ??There is no evidence of acetabular subsidence. ??No pelvic rim fracture seen. 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 ??There are vascular stents within the left pelvis and left lower extremity. SUMMARY: No radiographic evidence of fracture or dislocation. ??Status post bilateral total hip arthroplasty with expected postoperative appearance. Pepper Morgan MD IMG XR PROCEDURES Final Re sult documented in this encounter Visit Diagnoses Diagnosis Fall, initial encounter Left hip pain Pain in joint, pelvic region and thigh Hx of bilateral hip replacements documented in this encounter Care Teams Supervisor Plastic Sheets Relationship Specialty Start Date End Date Pepper Morgan MD PCP - General 09/16/16 Hank Garibay MD [address] [facility] [address] [place] [address] Surgeon Orthopedic Surgery 03/27/17 Jacky Murry MD 4 [facility] [address] [place] [address] Ophthalmology 03/27/17 Puma Mckenzie MD 4 [facility] [address] [place] [address] Surgeon Orthopedic Surgery 07/11/19 Neha Jackson PT Physical Therapist Physical Therapy 12/01/21 documented as of this encounter
--- OUTSIDE RECORDS SUMMARY | 2024-06-18 18:55 | XMS_ITS | Encounter Summary ---
Author Organization [facility] Medical Group Address [address] [facility] [address] [place] [address] Care Team Providers Care Chain Hooker Name Role Phone Pepper Morgan MD Primary Care Provider + [phone] Hank Garibay MD Unavailable [phone] Jacky Murry MD Unavailable [phone] Puma Mckenzie MD Unavailable [phone] Neha Jackson PT Unavailable Unavailable Reason for Visit * Reason Onset Date Comments verification on meds 06/22/2022 Encounter Details Date Type Department Care Team (Late st Contact Info) Description 06/22/2022 Telephone [facility] [address] [place] [phone] Pepper Morgan MD [address] [place] [address] verification on meds Social History Tobacco Use Types Packs/Day Years [...] on file Legal Sex Female 4:33 AM USER EXPERIENCE ARCHITECT Gender Identity Not on file Sexual Orientation Not on file Occupation Industry Job Start Date Job End Date retired Not on file Not on file Not on file documented as of this encounter Miscellaneous Notes * Telephone Encounter - Katy Lopes RN - 06/22/2022 11:51 AM USER EXPERIENCE ARCHITECT Called [facility] pharmacy and spoke to Vivisimo. Confirmed sigs: Lasix 40 mg 2 times a day prn Mirapex 0.125 mg 3 times a day. EXPERIENCE ARCHITECT * Telephone Encounter - Vickie Araujo - 06/22/2022 8:56 AM CST Sherri from [facility] calling they need to verify directions for furosemide and mirapex. Cbn: [phone] ref- [id number] EXPERIENCE ARCHITECT documented in this encounter Plan of Treatment [...] on filedocumented in this encounter Care Teams Chain Hooker Relationship Specialty Start Date End Date Pepper Morgan MD PCP - General 09/16/16 Hank Garibay MD [address] [facility] [address] [place] [address] Surgeon Orthopedic Surgery 03/27/17 Jacky Murry MD [address] [place] [address] [address] [address] Ophthalmology 03/27/17 Puma Mckenzie MD [address] [facility] [address] [address] Surgeon Orthopedic Surgery 07/11/19 Neha Jackson, PT Physical Therapist Physical Therapy 12/01/21 documented as of this encounter
--- OUTSIDE RECORDS SUMMARY | 2024-06-18 18:55 | XMS_ITS | Encounter Summary ---
Author Organization [facility] Medical Group Address [address] [facility] [address] [place] [address] Care Team Providers Care Utility Tech Name Role Phone Pepper Morgan MD Primary Care Provider + [phone] Hank Garibay MD Unavailable [phone] Jacky Murry MD Unavailable [phone] Puma Mckenzie MD Unavailable [phone] Neha Jackson PT Unavailable Unavailable Reason for Visit * Reason Onset Date Comments Med Refill 05/10/2022 Encounter Details Date Type Department Care Team (Late st Contact Info) Description 05/10/2022 Telephone [facility] [address] [place] [phone] Pepper Morgan MD [address] [place] [address] Med Refill Social History Tobacco Use Types [...] on file Legal Sex Female 4:33 AM ROCKET ASSEMBLY OPERATOR Gender Identity Not on file Sexual [...] shortness of breath 6.7 g 05/10/2022 3 documented in this encounter Miscellaneous Notes * Telephone Encounter - Lacie Alicea MA - 05/10/2022 10:49 AM ROCKET ASSEMBLY OPERATOR Refill sent to the pharmacy patient has an appt. Scheduled 06-08-22.dcoers port drier ET ASSEMBLY OPERATOR * Telephone Encounter - Vickie Araujo - 05/10/2022 9:38 AM CST Patient calling she is needing a refill on albeuterol. Kyle Sparks. Cbn: [phone] ET ASSEMBLY OPERATOR documented in this encounter Plan of [...] for wheezing or shortness of breath Reorder 10/14/2021 05/10/2022 documented as of this encounter Care Teams Utility Tech Relationship Specialty Start Date End Date Pepper Morgan MD PCP - General 09/16/16 Hank Garibay MD [address] [facility] [address] [place] [address] Surgeon Orthopedic Surgery 03/27/17 Jacky Murry MD [address] [place] [address] [address] [facility] [address] [place] [address] Ophthalmology 03/27/17 Puma Mckenzie MD [address] [place] [address] [address] [place] [address] Surgeon Orthopedic Surgery 07/11/19 Neha Jackson, PT Physical Therapist Physical Therapy 12/01/21 documented as of this encounter
--- OUTSIDE RECORDS SUMMARY | 2024-06-18 18:55 | XMS_ITS | Encounter Summary ---
Author Organization [facility] Healthcare Address [address] [place] [address] Care Team Providers Care Loading Machine Operator Helper Name Role Phone Pepper Morgan MD Primary Care Provider + [phone] Hank Garibay MD Unavailable [phone] Jacky Murry MD Unavailable [phone] Puma Mckenzie MD Unavailable [phone] Neha Jackson PT Unavailable Unavailable Reason for Visit * Diagnostic Imaging (Routine) - Closed Specialty Diagnoses / Procedures Referred By Contac t Referred To Contact Diagnoses Paroxysmal atrial fibrillation (CMS/HCC) (HCC) Procedures NM MPI SPECT (Rest and/or Stress) Multiple Studies Stalin Arauz MD [address] [place] [address] [address] Phone: tel: fax: [address] [address] Referral ID Status Reason Start Date Expiration Date Visits Re quested Visits Authorized [id number] Closed 04/18/2022 05/18/2023 1 1 Encounter Details Date Type Department Care Team (Latest Contact Info) Description 05/09/2022 8:03 AM CASINO BEVERAGE SERVER Hospital Encounter [facility] [address] [place] [address] Discharge Disposition: Discharge to home or self [...] on file Legal Sex Female 4:33 AM CASINO BEVERAGE SERVER Gender Identity Not on file Sexual Orientation [...] or shortness of breath 6.7 g 2 05/10/20 22 cetirizine (ZyrTEC) 10 mg tabletIndications:A ngioedema, subsequent encounter Take 1 tablet (10 mg total) by mouth nightly 90 tablet 3 2 12/09/19 23 clonazePAM (KlonoPIN) 0.25 mg disintegrating tabletIndications:R estless legs syndrome Take 1 tablet (0.25 mg total) by mouth 2 (two) times a day as needed for seizures 30 tablet 5 2 06/08/20 22 clonazePAM (KlonoPIN) 0.5 mg tabletIndications:R estless legs syndrome Take 1 tablet (0.5 mg total) by mouth nightly for 7 days 30 tablet 5 2 06/08/20 22 clopidogreL (PLAVIX) 75 mg tablet Take 1 tablet (75 mg total) by mouth daily 30 tablet 11 2 06/06/20 22 felodipine (PLENDIL) 5 mg 24 hr tabletIndications:B enign hypertension Take 1 tablet (5 mg total) by mouth daily 90 tablet 1 2 06/08/20 22 furosemide (LASIX) 40 mg tabletIndications:B enign hypertension Take 1 tablet (40 mg total) by mouth daily 90 tablet 1 2 06/08/20 22 metOLazone (ZAROXOLYN) 2.5 mg tablet Take 1 tablet (2.5 mg total) by mouth every other day 45 tablet 3 2 05/19/[address] (PROTONIX) 20 mg EC tabletIndications:C hronic GERD Take 1 tablet (20 mg total) by mouth daily With the largest meal 90 tablet 1 2 06/08/20 polyethylene glycol (MIRALAX) 17 gram packetIndications:c onstipation Take 1 packet (17 g total) by mouth daily as needed for constipation 02/08/20 24 pramipexole (MIRAPEX) 0.125 mg tabletIndications:I diopathic Parkinsonism,Restle ss Legs Syndrome Take up to 3 tablets daily starting them when you are having tremor developed in the afternoon or evening and taking up to 3 tablets daily. You do not have to take the medicine the morning if you are not having problem 270 tablet 1 2 06/08/20 propranoloL (INDERAL) 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:H ereditary essential tremor Take 1 tablet (20 mg total) by mouth 2 (two) times a day as needed (Tremor) 180 tablet 1 2 06/08/20 22 rivaroxaban (XARELTO) 20 mg tablet Take 1 tablet (20 mg total) by mouth daily 30 tablet 1 2 07/19/19 23 spironolactone (Aldactone) 25 mg tabletIndications:B enign hypertension Take 0.5 tablets (12.5 mg total) by mouth daily Take 1/2 tablet daily 60 tablet 1 2 06/08/20 22 documented as of this encounter Discharge Disposition [...] Procedure Name Priority Date/Time Associated Diagnosis Comments STRESS TEST FOR DUAL READ Schedule Routine, Read Routine (OP Routine) 05/09/2022 10:44 AM CASINO BEVERAGE SERVER Paroxysmal atrial fibrillation (CMS/HCC) (HCC) NM MPI SPECT (REST AND/OR STRESS) MULTIPLE STUDIES Schedule Routine, Read Routine (OP Routine) 05/09/2022 10:44 AM CASINO BEVERAGE SERVER Paroxysmal atrial fibrillation (CMS/HCC) (HCC) documented in this encounter Results * Stress Test for Myocardial Perfusion (05/09/2022 10:44 AM CASINO BEVERAGE SERVER) Anatomical Region Laterality Modality Nuclear Medicine 05/09/2022 8:30 AM CASINO BEVERAGE SERVER Narrative 05/09/2022 10:17 AM CASINO BEVERAGE SERVER [address] [address] Lexiscan Report ADDENDUM Patient Name: TESS BENEDICT I : 1935 Study Date: 05/09/2022 8:30:00 AM Gender: F Tech: adan castellon Ref.Provider: STALIN ARAUZ Height(Cm): 152 BSA: Weight(Kg): 184Heart Rate: 116 Order Provider: STALIN ARAUZ Procedures: Pharmacologic SPECT Report.: Myocardial perfusion imaging with Sestamibi SPECT at rest and post regadenoson (Lexiscan) infusion. Indications: Atrial Fibrillation. Findings: Procedure Data: Resting HR 79 bpm. Peak HR: 111 bpm. Predicted Maximal HR 136 bpm. Target HR: 116 bpm. Percent Max Predicted HR Achieved: 81.62 %. Baseline BP: 127/70 mmHg. Peak BP: 100/57 mmHg. Exercise Time: 00:11. Medications: Free Text. Performed By: Robin Kendall. Reason for Termination: Lexiscan protocol complete. Resting ECG: Atrial fibrillation. Post Pharm ECG: No diagnostic ST changes. Arrhythmia: Atrial fibrillation. Conclusions: 1. Suboptimal stress test in regards to heart rate. 2. No definite ischemia on stress EKG. 3. Nuclear images are pending and they will be reported separately. Electronically Signed By: Eric Bashir 2022-05-09 11:58:27 CASINO BEVERAGE SERVER CC: CC: Procedure Note Eric Bashir MD - 05/09/[address] [address] Lexiscan Report ADDENDUM Patient Name: TESS BENEDICT IPatient ID: [id number] : [id number] Date: 05/09/2022 8:30:00 AM Gender: FAccession #: [id number] Tech: adan Baptiste.Provider: STALIN ARAUZ Height(Cm): 152BSA: Weight(Kg): 184Heart Rate: 116 Order Provider: STALIN ARAUZ Procedures: Pharmacologic SPECT Report.: Myocardial perfusion imaging with Sestamibi SPECT at rest and postregadenoson (Lexiscan) infusion. Indications: Atrial Fibrillation. Findings: Procedure Data: Resting HR 79 bpm. Peak HR: 111 bpm. Predicted Maximal HR 136 bpm. TargetHR: 116 bpm. Percent Max Predicted HR Achieved: 81.62 %. Baseline BP: 127/70 mmHg. PeakBP: 100/57 mmHg. Exercise Time: 00:11. Medications: Free Text. Performed By: Robin Kendall. Reason for Termination: Lexiscan protocol complete. Resting ECG: Atrial fibrillation. Post Pharm ECG: No diagnostic ST changes. Arrhythmia: Atrial fibrillation. Conclusions: 1. Suboptimal stress test in regards to heart rate. 2. No definite ischemia on stress EKG. 3. Nuclear images are pending and they will be reported separately. Electronically Signed By: Eric Bashir 2022-05-09 11:58:27 CASINO BEVERAGE SERVER CC: CC: us Stalin Arauz MD CV STRESS PROCEDURES Edited Res ult - Final * NM MPI SPECT (Rest and/or Stress) Multiple Studies (05/09/2022 10:44 AM CASINO BEVERAGE SERVER) Anatomical Region Laterality Modality Body N/A Nuclear Medicine 05/09/2022 7:51 AM CASINO BEVERAGE SERVER Narrative 05/09/2022 6:09 PM CASINO BEVERAGE SERVER [address] [place] [address] Odilo Report Patient Name: TESS BENEDICT I : 1935 Study Date: 05/09/2022 7:51:07 AM Gender: F Tech: Ref.Provider: STALIN ARAUZ Height(Cm): BSA: Weight(Kg): Order Provider: STALIN ARAUZ Procedures: Pharmacologic SPECT Report.: Myocardial perfusion imaging with Sestamibi SPECT at rest and post regadenoson (Lexiscan) infusion. Indications: Atrial Fibrillation, and Hypertension. Findings: Procedure Data: Sestamibi injected at rest was 8.6 millicuries. Sestamibi injected at peak exercise was 25.7 millicuries. Predicted Maximal HR 136 bpm. Perfusion: Normal perfusion imaging. LV Function: Left ventricular ejection fraction is 65 %. Conclusions: 1. Myocardial Perfusion: Normal rest and stress images. 2. Left ventricle: Normal size and systolic function (visually confirmed EF >50%). Electronically Signed By: Hyacinth Cortez MD 2022-05-09 18:09:22 CASINO BEVERAGE SERVER Procedure Note Hyacinth Cortez MD - 05/09/[address] [place] [address] Odilo Report Patient Name: TESS BENEDICT IPatient ID: [id number] : [id number] Date: 05/09/2022 7:51:07 AM Gender: FAccession #: [id number] Tech: Ref.Provider: STALIN ARAUZ Height(Cm): BSA: Weight(Kg): Order Provider: STALIN ARAUZ Procedures: Pharmacologic SPECT Report.: Myocardial perfusion imaging with Sestamibi SPECT at rest and postregadenoson (Lexiscan) infusion. Indications: Atrial Fibrillation, and Hypertension. Findings: Procedure Data: Sestamibi injected at rest was 8.6 millicuries. Sestamibi injected at peakexercise was 25.7 millicuries. Predicted Maximal HR 136 bpm. Perfusion: Normal perfusion imaging. LV Function: Left ventricular ejection fraction is 65 %. Conclusions: 1. Myocardial Perfusion: Normal rest and stress images. 2. Left ventricle: Normal size and systolic function (visually confirmedEF >50%). Electronically Signed By: Hyacinth Cortez MD 2022-05-09 18:09:22 CASINO BEVERAGE SERVER Stalin Arauz MD [facility] PROCED[facility] Final Result documented in this encounter Visit Diagnoses Not on filedocumented in this encounter Care Teams Loading Machine Operator Helper Relationship Specialty Start Date End Date Pepper Morgan MD PCP - General 09/16/16 Hank Garibay MD [address] [facility] [address] [place] [address] Surgeon Orthopedic Surgery 03/27/17 Jacky Murry MD [address] [facility] [address] [place] [address] Ophthalmology 03/27/17 Puma Mckenzie MD [address] [place] [address] [address] [place] [address] Surgeon Orthopedic Surgery 07/11/19 Neha Jackson, PT Physical Therapist Physical Therapy 12/01/21 documented as of this encounter
--- OUTSIDE RECORDS SUMMARY | 2024-06-18 18:55 | XMS_ITS | Encounter Summary ---
Author Organization [facility] Medical Group Address [address] [facility] [address] [place] [address] Care Team Providers Care Rickshaw Driver Name Role Phone Pepper Morgan MD Primary Care Provider + [phone] Hank Garibay MD Unavailable [phone] Jacky Murry MD Unavailable [phone] Puma Mckenzie MD Unavailable [phone] Neha Jackson PT Unavailable Unavailable Reason for Visit * Reason Onset Date Comments Med Refill 07/11/2022 Encounter Details Date Type Department Care Team (Late st Contact Info) Description 07/11/2022 Telephone [facility] [address] [place] [phone] Pepper Morgan MD [address] [place] [address] Med Refill Social History Tobacco Use Types [...] on file Legal Sex Female 4:33 AM HAT FORMER Gender Identity Not on file Sexual Orientation Not on file Occupation Industry Job Start Date Job End Date retired Not on file Not on file Not on file documented as of this encounter Miscellaneous Notes * Telephone Encounter - Charity Pinedo LPN - 07/11/2022 11:34 AM HAT FORMER Note in [employer] Module that [facility] sent Clonazepam 0.25mg BID PRN #[id number] + 5 refills to [facility] on 06/19/22. Spoke with Grant at [facility] [phone] who states they received this Rx on 06/16/22 which is ok to fill if pt is wanting the Rx filled. Informed Grant that our office records do not show any Rx written 06/16/22, it shows 06/19/22. Grant again said he shows 06/16/22 & it is the exact Rxthat our records show on 06/19/22. Grant said they will prepare the refill if pt wanting it filled. Informed Bill that this nurse will speak with pt and advise she contact pharmacy if she wants this medication filled now. Grant voiced understanding. Informed pt [phone] that [facility] already has the Rx and she just needs to call and request the refill. Pt did voice understanding and had no further questions/concerns at this time. FORMER * Telephone Encounter - Vickie Araujo - 07/11/2022 8:51 AM CST Patient needs a refill on clonazepam. Pharmacy changed to [facility] in [place] due to insurance. Cbn: [phone] FORMER documented in this encounter Plan of Treatment [...] on filedocumented in this encounter Care Teams Rickshaw Driver Relationship Specialty Start Date End Date Pepper Morgan MD PCP - General 09/16/16 Hank Garibay MD [address] [facility] [address] [place] [address] Surgeon Orthopedic Surgery 03/27/17 Jacky Murry MD [address] [facility] [address] [place] [address] Ophthalmology 03/27/17 Puma Mckenzie MD [address] [facility] [address] [place] [address] Surgeon Orthopedic Surgery 07/11/19 Neha Jackson, KEVIN Physical Therapist Physical Therapy 12/01/21 documented as of this encounter
--- OUTSIDE RECORDS SUMMARY | 2024-06-18 18:55 | XMS_ITS | Encounter Summary ---
Author Organization [facility] Healthcare Address [address] [place] [address] Care Team Providers Care Shaper Operator Name Role Phone Pepper Morgan MD Primary Care Provider + [phone] Hank Garibay MD Unavailable [phone] Jacky Murry MD Unavailable [phone] Puma Mckenzie MD Unavailable [phone] Neha Jackson PT Unavailable Unavailable Reason for Visit * Diagnostic Imaging (Routine) - Closed Specialty Diagnoses / Procedures Referred By Contac t Referred To Contact Diagnoses Paroxysmal atrial fibrillation (CMS/HCC) (HCC) Procedures NM MPI SPECT (Rest and/or Stress) Multiple Studies Stalin Arauz MD [address] [place] [address] DR KRISHNAN [address] [place] [address] Phone: tel: fax: [address] [address] Referral ID Status Reason Start Date Expiration Date Visits Re quested Visits Authorized [id number] Closed 04/18/2022 05/18/2023 1 1 Encounter Details Date Type Department Care Team (Latest Contact Info) Description 05/09/2022 8:04 AM SNOW REMOVAL/PLOWING - 05/09/2022 11:59 PM SNOW REMOVAL/PLOWING Hospital Encounter [facility] [address] [place] [id number] Discharge Disposition: Discharge to home or self [...] on file Legal Sex Female 4:33 AM SNOW REMOVAL/PLOWING Gender Identity Not on file Sexual Orientation [...] mouth daily 30 tablet 11 2 06/06/20 felodipine (PLENDIL) 5 mg 24 hr tabletIndications:B [...] other day 45 tablet 3 2 05/19/[address] (PROTONIX) 20 mg EC tabletIndications:C hronic GERD Take 1 tablet (20 mg total) by mouth daily With the largest meal 90 tablet 1 2 06/08/20 22 polyethylene glycol (MIRALAX) 17 gram packetIndications:c onstipation Take 1 packet (17 g total) by mouth daily as needed for constipation 02/08/20 pramipexole (MIRAPEX) 0.125 mg tabletIndications:I diopathic Parkinsonism,Restle ss Legs Syndrome Take up to 3 tablets daily starting them when you are having tremor developed in the afternoon or evening and taking up to 3 tablets daily. You do not have to take the medicine the morning if you are not having problem 270 tablet 1 2 06/08/20 22 propranoloL (INDERAL) 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:H ereditary essential [...] 1/2 tablet daily 60 tablet 1 2 12/21/20 22 documented as of this encounter Discharge [...] Read Routine (OP Routine) 05/09/2022 10:44 AM SNOW REMOVAL/PLOWING Paroxysmal atrial fibrillation (CMS/HCC) (HCC) NM MPI SPECT (REST AND/OR STRESS) MULTIPLE STUDIES Schedule Routine, Read Routine (OP Routine) 05/09/2022 10:44 AM SNOW REMOVAL/PLOWING Paroxysmal atrial fibrillation (CMS/HCC) (HCC) documented in this encounter Visit Diagnoses Not on filedocumented in this encounter Administered Medications Inactive Administered Medications - up to 3 most recent administrations Medication Order MAR Action Action Date Dose Rate Site tc-99m tetrofosmin (MYOVIEW) injection 25.7 millicurie 25.7 millicurie, intravenous, Once in imaging, radiopharmaceutical, Starting on Mon05/09/22 at 1044, For 1 dose, Indications: Diagnostic RadiographyIndications:Leticia gnostic Radiography Given 05/09/2022 9:48 AM SNOW REMOVAL/PLOWING 25.7 millicuries documented in this encounter Care Teams Shaper Operator Relationship Specialty Start Date End Date Pepper Morgan MD PCP - General 09/16/16 Hank Garibay MD [address] [place] [address] [address] [address] Surgeon Orthopedic Surgery 03/27/17 Jacky Murry MD [address] [place] [address] [address] [place] [address] Ophthalmology 03/27/17 Puma Mckenzie MD 4 [facility] [address] [place] [address] Surgeon Orthopedic Surgery 07/11/19 Neha Jackson PT Physical Therapist Physical Therapy 12/01/21 documented as of this encounter
--- OUTSIDE RECORDS SUMMARY | 2024-06-18 18:55 | XMS_ITS | Encounter Summary ---
Author Organization [facility] Medical Group Address [address] [facility] [address] [place] [address] Care Team Providers Care Special Education Assistant Name Role Phone Pepper Morgan MD Primary Care Provider + [phone] Hank Garibay MD Unavailable [phone] Jacky Murry MD Unavailable [phone] Puma Mckenzie MD Unavailable [phone] Neha Jackson PT Unavailable Unavailable Reason for Visit * Reason Onset Date Comments needs refils 06/14/2022 Encounter Details Date Type Department Care Team (Late st Contact Info) Description 06/14/2022 Telephone [facility] [address] [place] [id number] Pepper Morgan MD [address] [place] [address] needs refils Social History Tobacco Use Types Packs/Day Years [...] on file Legal Sex Female 4:33 AM PROFESSOR OF BUSINESS Gender Identity Not on file Sexual Orientation Not on file Occupation Industry Job Start Date Job End Date retired Not on file Not on file Not on file documented as of this encounter Miscellaneous Notes * Telephone Encounter - Lacie Alicea MA - 06/15/2022 4:09 PM PROFESSOR OF BUSINESS Tess called me back. She is aware we sent these meds except the controlled / prn medication and the Xarelto which is to early to be filled. She will call back if has any other issues. I will call [facility] tomorrow. To address issues. Dcoers irrigator head ESSOR OF BUSINESS * Telephone Encounter - Lacie Alicea MA - 06/15/2022 1:09 PM PROFESSOR OF BUSINESS I called and left vm for patient to call me back. I just wanted follow up with the [facility] stuff for this patient. And see if she was able to contact them.dcoepreston irrigator head ESSOR OF BUSINESS * Telephone Encounter - Lacie Alicea MA - 06/14/2022 11:[address] Morgan already sent her medications to [facility]. However I dont think she can get them thru there until the . I called patient she will contact pharmacy. And let them know we sent these on the . Dcoe irrigator head ESSOR OF BUSINESS * Telephone Encounter - Vickie Araujo - 06/14/2022 10:48 AM CST Patient is needing refills and she will need her refills sent to [facility] and the phone number is [phone] she gave this information when she was here last week. Cbn: [phone] ESSOR OF BUSINESS documented in this encounter Plan of Treatment [...] on filedocumented in this encounter Care Teams Special Education Assistant Relationship Specialty Start Date End Date Pepper Morgan MD PCP - General 09/16/16 Hank Garibay MD [address] [facility] [address] [place] [address] Surgeon Orthopedic Surgery 03/27/17 Jacky Murry MD [address] [facility] [address] [place] [address] Ophthalmology 03/27/17 Puma Mckenzie MD [address] [facility] [address] [place] [address] Surgeon Orthopedic Surgery 07/11/19 Neha Jackson PT Physical Therapist Physical Therapy 12/01/21 documented as of this encounter
--- OUTSIDE RECORDS SUMMARY | 2024-06-18 18:55 | XMS_ITS | Encounter Summary ---
Author Organization [facility] Address [address] [place] [address] Care Team Providers Care Hardboard Supervisor Name Role Phone Pepper Morgan MD Primary Care Provider + [phone] Hank Garibay MD Unavailable [phone] Jacky Murry MD Unavailable [phone] Puma Mckenzie MD Unavailable [phone] Neha Jackson PT Unavailable Unavailable Reason for Referral * Cardiology (Routine) - Closed Specialty Diagnoses / Procedures Referred By Olga uribe Referred To Contact Diagnoses Paroxysmal atrial fibrillation (CMS/HCC) (HCC) Procedures Transthoracic Echo (TTE) Complete W Doppler/CF Stalin Matt MD [address] [place] [address] Phone: tel: fax: [address] [address] Referral ID Status Reason Start Date Expiration Date Visits Re quested Visits Authorized [id number] Closed 04/18/2022 05/18/2023 1 1 GING OPERATOR Reason for Visit * Cardiology (Routine) - Closed Specialty Diagnoses / Procedures Referred By Contnahun t Referred To Contact Diagnoses Paroxysmal atrial fibrillation (CMS/HCC) (HCC) Procedures Transthoracic Echo (TTE) Complete W Doppler/CF Stalin Matt MD 2 [facility] [address] [place] [address] Phone: tel: fax: [address] [phone] Referral ID Status Reason Start Date Expiration Date Visits Re quested Visits Authorized [id number] Closed 04/18/2022 05/18/2023 1 1 Encounter Details Date Type Department Care Team (Latest Contact Info) Description 06/03/2022 1:48 PM CHARGING OPERATOR - 06/03/2022 11:59 PM CHARGING OPERATOR Hospital Encounter [facility] [address] [place] [address] Paroxysmal atrial fibrillation (CMS/HCC) (HCC) Discharge Disposition: Discharge to home [...] on file Legal Sex Female 4:33 AM CHARGING OPERATOR Gender Identity Not on file Sexual [...] 06/08/20 22 metOLazone (ZAROXOLYN) 2.5 mg tablet TAKE 1 TABLET(2.5 MG) BY MOUTH DAILY 90 tablet 3 2 06/06/[address] (PROTONIX) 20 mg EC [...] (TTE) COMPLETE W DOPPLER/CF WO CONTRAST Routine 06/03/2022 2:40 PM CHARGING OPERATOR Paroxysmal atrial fibrillation (CMS/HCC) (HCC) documented in this encounter Results * TRANSTHORACIC ECHO (TTE) COMPLETE W DOPPLER/CF WO CONTRAST (06/03/2022 2:40 PM CHARGING OPERATOR) Anatomical Region Laterality Modality Ultrasound 06/03/2022 2:07 PM CHARGING OPERATOR Narrative 06/03/2022 3:50 PM CHARGING OPERATOR [place] [address] [place] [address] Echocardiogram Report Patient Name: TESS KOO : 1935 Study Date: 06/03/2022 2:07:20 PM Gender: F Tech: AA Location: echo room 1 Ref.Provider: STALIN MATT Height(Cm): BSA: Weight(Kg): Quality: Good Order Provider: STALIN MATT Procedures: Echocardiographic Report: Transthoracic echocardiogram with complete 2D, M-Mode, and color Doppler examination. Indications: Atrial Fibrillation. Measurements: 2D/M Mode ? Doppler ? Measurement ?Value ?Normal Range ?Measurement ?Value ?Normal Range ? LA Dimension 2D ?4.01 ? [ 2.70 - 3.80 ] cm ?EDUARDO Vmax ? 2.55 ? [ 2.00 - 4.00 ] cm2 ? AoR Diam MM ?3.15 ? [ 2.60 - 3.70 ] cm ?AV Mean PG ? 5 ?[ 2 - 4 ] mmHg ? ACS MM ? 1.67 ? cm ?AV Peak Matt ?1.51 ? [ 1.00 - 1.70 ] m/s ?AV VTI ? 26.79 ?cm ?LVOT Diam ?2.10 ? [ 1.70 - 2.10 ] cm ?LVOT Peak Matt ?1.11 ? [ 0.70 - 1.10 ] m/s ?LVOT VTI ? 20.20 ?[ 20.00 - 30.00 ] cm ?MV E Peak Matt ?1.15 ? [ 0.60 - 1.30 ] m/s ?MV A Peak Matt ?0.14 ? [ 1.00 - 1.20 ] m/s ?MV Mean PG ? 2 ?[ <= 5 ] mmHg ?MV PHT ? 66 ? [ 20 - 100 ] msec ?MVA ?3.10 ?MV Decel Time ?227 ?[ 104 - 258 ] msec ?PV Peak Matt ?0.97 ? [ 0.40 - 0.80 ] m/s ?TR Peak Matt ?2.36 ? [ 1.00 - 2.80 ] m/s ?TR Peak PG ? 22 ? mmHg ?RVSP ? 27.00 ?[ 10.00 - 36.00 ] mmHg ?E` ? 0.10 ? cm/sec ?E/E` ? 11.42 ?[ <= 10.00 ] ?PA Pressure ?5.00 ? [ 10.00 - 36.00 ] mmHg ? - Findings: Atrial Septum: Normal atrial septum. Left Ventricle: Normal left ventricular systolic function with no focal wall motion abnormalities. Normal left ventricular size. Normal left ventricular wall thickness. Ejection fraction is measured at 70 %. Left Atrium: There is moderate enlargement of left atrium. Right Ventricle: Normal right ventricular size. Normal right ventricular systolic function. Right Atrium: There is moderate enlargement of right atrium. Aortic Valve: No evidence of hemodynamically significant aortic stenosis by Doppler. Aortic cusps appear mildly sclerotic. Mitral Valve: Normal structure of the mitral valve. Pulmonic Valve: Normal structure of the pulmonic valve. Tricuspid Valve: Normal right ventricular systolic pressure. Estimated peak RVSP is 35 mmHg. Mild tricuspid regurgitation. Pericardium: Normal pericardium with no significant pericardial effusion. Aorta: Normal aortic root. Sinus of Valsalva is normal. Aortic arch is normal. Descending aorta is normal. IVC: Normal size and normal respiratory collapse consistent with normal right atrial pressure (<5 mmHg). Pulmonary Artery: Normal pulmonary artery size. Conclusions: Normal left ventricular systolic function with [...] fibrillation. Technically difficult study with suboptimal views. Electronically Signed By: Stalin Matt MD 2022-06-03 15:50:13 CHARGING OPERATOR CC: CC: Procedure Note Stalin Matt MD - 06/03/[address] [address] Echocardiogram Report Patient Name: TESS KOOPatient ID: [id number] : [id number] Date: 06/03/2022 2:07:20 PM Gender: FAccession #: [id number] Tech: AALocation: echo room 1 Ref.Provider: Chivo MATT(Cm): BSA: Weight(Kg): Quality: GoodOrder Provider: STALIN MATT Procedures: Echocardiographic Report: Transthoracic echocardiogram with complete 2D, M-Mode, and color Dopplerexamination. Indications: Atrial Fibrillation. Measurements: 2D/M Mode Doppler Measurement Value Normal Range Measurement ValueNormal Range LA Dimension 2D 4.01 [ 2.70 - 3.80 ] cm EDUARDO Vmax 2.55[ 2.00 - 4.00 ] cm2 AoR Diam MM 3.15 [ 2.60 - 3.70 ] cm AV Mean PG 5[ 2 - 4 ] mmHg ACS MM 1.67 cm AV Peak Matt 1.51[ 1.00 - 1.70 ] m/s AV VTI 26.79cm LVOT Diam 2.10[ 1.70 - 2.10 ] cm LVOT Peak Matt 1.11[ 0.70 - 1.10 ] m/s LVOT VTI 20.20[ 20.00 - 30.00 ] cm MV E Peak Matt 1.15[ 0.60 - 1.30 ] m/s MV A Peak Matt 0.14[ 1.00 - 1.20 ] m/s MV Mean PG 2[ <= 5 ] mmHg MV PHT 66[ 20 - 100 ] msec MVA 3.10 MV Decel Time 227[ 104 - 258 ] msec PV Peak Matt 0.97[ 0.40 - 0.80 ] m/s TR Peak Matt 2.36[ 1.00 - 2.80 ] m/s TR Peak PG 22mmHg RVSP 27.00[ 10.00 - 36.00 ] mmHg E` 0.10cm/sec E/E` 11.42[ <= 10.00 ] PA Pressure 5.00[ 10.00 - 36.00 ] mmHg - Findings: Atrial Septum: Normal atrial septum. Left Ventricle: Normal left ventricular systolic function with no focal wall motionabnormalities. Normal left ventricular size. Normal left ventricular wall thickness. Ejectionfraction is measured at 70 %. Left Atrium: There is moderate enlargement of left atrium. Right Ventricle: Normal right ventricular size. Normal right ventricular systolicfunction. Right Atrium: There is moderate enlargement of right atrium. Aortic Valve: No evidence of hemodynamically significant aortic stenosis by Doppler.Aortic cusps appear mildly sclerotic. Mitral Valve: Normal structure of the mitral valve. Pulmonic Valve: Normal structure of the pulmonic valve. Tricuspid Valve: Normal right ventricular systolic pressure. Estimated peak RVSP is 35mmHg. Mild tricuspid regurgitation. Pericardium: Normal pericardium with no significant pericardial effusion. Aorta: Normal aortic root. Sinus of Valsalva is normal. Aortic arch is normal.Descending aorta is normal. IVC: Normal size and normal respiratory collapse consistent with normal rightatrial pressure (<5 mmHg). Pulmonary Artery: Normal pulmonary artery size. Conclusions: Normal left ventricular systolic function with no focal wall motionabnormalities. Normal left ventricular size. Normal left ventricular wall thickness. Ejectionfraction is measured at 70 %. There is moderate enlargement of left atrium. There is moderate enlargement of right atrium. No evidence of hemodynamically significant aortic stenosis by Doppler.Aortic cusps appear mildly sclerotic. Normal right ventricular systolic pressure. Estimated peak RVSP is 35mmHg. Mild tricuspid regurgitation. Probable Atrial fibrillation. Technically difficult study with suboptimal views. Electronically Signed By: Stalin Matt MD 2022-06-03 15:50:13 CHARGING OPERATOR CC: CC: us Stalin Matt MD CV ECHO PROCEDURES Final Result documented in this encounter Visit Diagnoses Diagnosis Paroxysmal atrial fibrillation (CMS/HCC) (HCC) Atrial fibrillation documented in this encounter Care Teams Hardboard Supervisor Relationship Specialty Start Date End Date Pepper Morgan MD PCP - General 09/16/16 Hank Garibay MD 4 [facility] [address] [place] [address] Surgeon Orthopedic Surgery 03/27/17 Jacky Murry MD 4 [facility] [address] WARN[address] [place] [address] Ophthalmology 03/27/17 Puma Mckenzie MD 4 [facility] [address] [place] [address] Surgeon Orthopedic Surgery 07/11/19 Neha Jackson PT Physical Therapist Physical Therapy 12/01/21 documented as of this encounter
--- OUTSIDE RECORDS SUMMARY | 2024-06-18 18:55 | XMS_ITS | Encounter Summary ---
Author Organization [facility] Address [address] [facility] [address] [place] [address] Care Team Providers Care Veterinary Medicine Scientist Name Role Phone Pepper Morgan MD Primary Care Provider + [phone] Hank Garibay MD Unavailable [phone] Jacky Murry MD Unavailable [phone] Puma Mckenzie MD Unavailable [phone] Neha Jackson PT Unavailable Unavailable Encounter Details Date Type Department Care Team (Late st Contact Info) Description 06/01/2022 Telephone [place] [facility] Manager at [address] [place] [id number] Malena Gage Social History Tobacco Use [...] on file Legal 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 She has an appointment with PMD 06/07. LIFT DRIVER documented in this encounter Plan of Treatment [...] on filedocumented in this encounter Care Teams Veterinary Medicine Scientist Relationship Specialty Start Date End Date Pepper Morgan MD PCP - General 09/16/16 Hank Garibay MD [address] [place] [address] [address] WARNER [address] [place] [address] Surgeon Orthopedic Surgery 03/27/17 Jacky Murry MD [address] [place] [address] [address] WARNER [address] [place] [address] Ophthalmology 03/27/17 Puma Mckenzie MD [address] [facility] [place] [address] Surgeon Orthopedic Surgery 07/11/19 Neha Jackson PT Physical Therapist Physical Therapy 12/01/21 documented as of this encounter
--- OUTSIDE RECORDS SUMMARY | 2024-06-18 18:55 | XMS_ITS | Encounter Summary ---
Author Organization [facility] Address [address] [facility] [address] [place] [id number] Care Team Providers Care Sanforizing Machine Operator Name Role Phone Pepper Morgan MD Primary Care Provider [phone] Hank Garibay MD Unavailable [phone] Jacky Murry MD Unavailable [phone] Puma Mckenzie MD Unavailable [phone] Neha Jackson PT Unavailable Unavailable Reason for Referral * Diagnostic Imaging (Routine) - Closed Specialty Diagnoses / Procedures Referred By Contac t Referred To Contact Diagnoses Fall, initial encounter Left hip pain Hx of bilateral hip replacements Procedures XR Hip Left W Pelvis 2 or 3 Views Pepper Morgan MD [address] [address] Phone: tel: fax: [facility] Referral ID Status Reason Start Date Expiration Date Visits Re quested Visits Authorized [id number] Closed 06/08/2022 07/08/2023 1 1 IR WELDER Reason for Visit * Reason Comments Annual Exam Encounter Details Date Type Department Care Team (Late st Contact Info) Description 06/08/2022 10:20 AM REPAIR WELDER Office Visit [facility] [address] [place] [address] Pepper Morgan MD [address] [place] [address] Annual physical exam (Primary Dx); Chronic GERD; Restless legs syndrome; 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; Parkinson's disease (tremor, stiffness, slow motion, unstable posture) (CMS/HCC) (HCC); Angioedema, subsequent encounter; Hereditary essential tremor; Fall, initial encounter; Left hip pain; Hx [...] on file Legal Sex Female 4:33 AM REPAIR WELDER Gender Identity Not on file Sexual Orientation Not on file Occupation Industry Job Start Date Job End Date retired Not on file Not on file Not on file documented as of this encounter Last Filed Vital Signs Vital Sign Reading Time Taken Comments Blood Pressure 110/70 06/08/2022 10:15 AM REPAIR WELDER Pulse 68 06/08/2022 10:15 AM REPAIR WELDER Temperature 36.2 ??C (97.1 ??F) 06/08/2022 10:[address] Respiratory Rate 12 06/08/2022 10:15 AM REPAIR WELDER Oxygen Saturation 97% 06/08/2022 10:15 AM REPAIR WELDER Inhaled Oxygen Concentration - - Weight 85.3 kg (188 lb) 06/08/2022 10:15 AM REPAIR WELDER Height 157.5 cm (5' 2 ) 06/08/2022 10:15 AM REPAIR WELDER Body Mass Index 34.39 06/08/2022 10:15 AM REPAIR WELDER documented in this encounter Patient Instructions * Patient Instructions* Pepper Morgan MD - 06/08/2022 10:20 AM REPAIR WELDER ORDERS FOR AMS STAFF TO ARRANGE 1. Patient to contact [facility] to set up [employer] with her sister to start Parkinson's exercises 2. Left hip x-ray today diagnosis = fall, left hip pain history of hip replacement 3. Copy the DMV paperwork sticker filled out today ORDERS FOR Tess Chente Limonmake TO ARRANGE 1. lifestyle changes Set up for [employer] boxing with her sister and get working on balance and strength, you can improved from here with the Parkinson's 2. No Medication changes, one-month refills sent to local [facility] with three- month refills sent to the new mail order [facility] and local Klonopin sent for June 19, 2022 to local [facility] in about 6 months (around 12/07/2022) for Recheck. Orders Placed This Encounter Procedures XR Hip Left W Pelvis 2 or 3 Views 1. Immunization recommendations: Everything is up-to-date For your records I have provided this immunization report Immunization History Administered Date(s) Administered Influenza, Quad, Adjuvantated, Intramuscular 03/10/2022 Influenza, Quadrivalent, High Dose, Preservative Free, Intrr 03/31/2020, 04/13/2021 Influenza, Quadrivalent, Split, Intramuscular 03/28/2016, 04/04/2017 Influenza, Split 05/18/2012 Influenza, Trivalent, Adjuvanted, Intramuscular 04/17/2019 Influenza, Trivalent, High Dose, Split, Preservative Free, Intramuscular 03/23/2015, 03/12/2018, 04/17/2019 Influenza, Trivalent, Intramuscular 03/25/2014, 04/17/2015 Influenza, Unspecified 03/13/2018, 03/19/2021, 03/10/2022 Pfizer SARS-CoV-2 Vaccination (12+ YRS) DOSS-READY TO USE 01/11/2022 Pfizer SARS-CoV-2 Vaccination (12+ yrs) PURPLE 08/15/2020, 09/06/2020, 03/14/2021 Pfizer Sars-Cov-2 Bivalent Booster Vaccination (12+ YRS) 04/01/2022 Pneumococcal Conjugate PCV 13 02/18/2015 Pneumococcal Polysaccharide PPV23 05/17/2002, 04/26/2016 Tdap 05/18/2011, 08/23/2021 ZOSTER Recombinant 12/02/2020, 02/23/2021 A brief review of all your currently discussed problems, the pharmacy where your medications are sent, all active medications, and orders for each problem discussed today Primary Pharmacy/DME suppliers: [id number] - [place], [place] - [address] AT [place] [address] [place] [address] [facility] AT Portal to Registered [facility] Sites [facility] [place] [id number] [facility] [address] [address] ICD-9-CM ICD-10-CM 1. Annual physical exam V70.0 Z00.00 2. Chronic GERD 530.[address] (PROTONIX) 20 mg EC tablet DISCONTINUED: pantoprazole DR (PROTONIX) 20 mg EC tablet 3. Restless legs syndrome 333.94 G25.81 clonazePAM (KlonoPIN) 0.25 mg disintegrating tablet pramipexole (MIRAPEX) 0.125 mg tablet DISCONTINUED: clonazePAM (KlonoPIN) 0.25 mg disintegrating tablet DISCONTINUED: pramipexole (MIRAPEX) 0.125 mg tablet 4. 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 401.1 I10 felodipine (PLENDIL) 5 mg 24 hr tablet spironolactone (Aldactone) 25 mg tablet furosemide (LASIX) 40 mg tablet DISCONTINUED: furosemide (LASIX) 40 mg tablet 5. Parkinson's disease (tremor, stiffness, slow motion, unstable posture) (CMS/HCC) (HCC) 332.0 Y39egisuitekgd (MIRAPEX) 0.125 mg tablet DISCONTINUED: pramipexole (MIRAPEX) 0.125 mg tablet 6. Angioedema, subsequent encounter V58.89 T78.3XXD 995.1 7. Hereditary essential tremor 333.1 G25.0 propranoloL (INDERAL) 20 mg tablet 8. Fall, initial encounter E888.9 W19.XXXA XR Hip Left W Pelvis 2 or 3 Views 9. Left hip pain 719.45 M25.552 XR Hip Left W Pelvis 2 or 3 Views 10. Hx of bilateral hip replacements V43.64 Z96.643 XR Hip Left W Pelvis 2 or 3 Views PLEASE REVIEW this CARE TEAM and advise of any need for INCLUSIONS OR DELETIONS so I can keep your team informed of important changes in your health Patient Care Team: Pepper Morgan MD as PCP - General Hank Garibay MD as Surgeon (Orthopedic Surgery) Jacky Murry MD (Ophthalmology) Puma Mckenzie MD as Surgeon (Orthopedic Surgery) Neha Jackson PT as Physical Therapist (Physical Therapy) BRING IN ALL PILL BOTTLES TO EVERY [...] EVERY OFFICE VISIT. PLEASE SIGN UP FOR [employer] so that you may have access to your labs and chart documentation IF YOU HAVE TROUBLE WITH THIS PROCESS CALL [phone] Annual Exam finds the need for diet and exercise changes for 10% weight reduction over the next year. Consider seriously how you can start lifestyle changes of healthier diet and 30 minutes of daily aerobic exercise to reach our expected health goals. Please review the comprehensive yearly physical examination worksheet created for you today. laboratory results, immunization recommendations, and any tests required for preventive health are documented on this information sheet. OTHER IMPORTANT RECOMMENDATIONS NEGOTIATED THIS VISIT All exercises needed will be taught in [employer] boxing, this is extremely important for you to maintain your independence with Parkinson's over the next several years IR WELDER IR WELDER IR WELDER documented in this encounter Ordered Prescriptions Prescription [...] are not having problem 270 tablet 1 06/19/[address] (PROTONIX) 20 mg EC tabletIndications:Ch ronic GERD Take 1 tablet (20 mg total) by mouth daily With the largest meal 90 tablet 1 06/19/2022 3 furosemide (LASIX) 40 mg tabletIndications:Be nign hypertension Take 1 tablet (40 mg total) by mouth 2 (two) times a day as needed (Leg swelling from heart issue) 180 tablet 1 06/19/2022 3 clonazePAM (KlonoPIN) 0.25 mg disintegrating tabletIndications:Re stless legs syndrome Take 1 tablet (0.25 mg total) by mouth 2 (two) times a day as needed for seizures 60 tablet 5 06/19/2022 3 spironolactone (Aldactone) 25 mg tabletIndications:Be nign hypertension Take 0.5-1 tablets (12.5-25 mg total) by mouth daily Take 1/2 tablet daily 90 tablet 1 06/19/2022 3 propranoloL (INDERAL) 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:He reditary essential tremor Take 1 tablet (20 mg total) by mouth 2 (two) times a day as needed (Tremor) 180 tablet 1 06/19/2022 3 felodipine (PLENDIL) 5 mg 24 hr tabletIndications:Be nign hypertension Take 1 tablet (5 mg total) by mouth daily 90 tablet 1 06/19/2022 3 pramipexole (MIRAPEX) 0.125 mg tabletIndications:Id iopathic Parkinsonism,Restles s Legs Syndrome Take up to 3 tablets daily starting them when you are having tremor developed in the afternoon or evening and taking up to 3 tablets daily. You do not have to take the medicine the morning if you are not having problem 90 tablet 1 06/08/2022 2 furosemide (LASIX) 40 mg tabletIndications:Be nign hypertension Take 1 tablet (40 mg total) by mouth 2 (two) times a day as needed (Leg swelling from heart issue) 60 tablet 1 06/08/2022 2 clonazePAM (KlonoPIN) 0.25 mg disintegrating tabletIndications:Re stless legs syndrome Take 1 tablet (0.25 mg total) by mouth 2 (two) times a day as needed for seizures 60 tablet 1 06/08/[address] (PROTONIX) 20 mg EC tabletIndications:Ch ronic GERD Take 1 tablet (20 mg total) by mouth daily With the largest meal 30 tablet 1 06/08/2022 2 documented in this encounter Progress Notes * Pepper Morgan MD - 06/08/2022 10:20 AM CST ASSESSMENT AND PLAN Patient Instructions ORDERS FOR AMS STAFF TO ARRANGE 1. Patient to contact [facility] to set up [employer] boxing with her sister to start Parkinson's exercises 2. Left hip x-ray today diagnosis = fall, left hip pain history of hip replacement 3. Copy the [facility] paperwork sticker filled out today ORDERS FOR Tess Benedict TO ARRANGE 1. lifestyle changes Set up for [employer] boxing with her sister and get working on balance and strength, you can improved from here with the Parkinson's 2. No Medication changes, one-month refills sent to local [facility] with three- month refills sent to the new mail order [facility] and local Klonopin sent for June 19, 2022 to local [facility] in about 6 months (around 12/07/2022) for Recheck. Orders Placed This Encounter Procedures XR Hip Left W Pelvis 2 or 3 Views 1. Immunization recommendations: Everything is up-to-date For your records I have provided this immunization report Immunization History Administered Date(s) Administered Influenza, Quad, Adjuvantated, Intramuscular 03/10/2022 Influenza, Quadrivalent, High Dose, Preservative Free, Intrr 03/31/2020, 04/13/2021 Influenza, Quadrivalent, Split, Intramuscular 03/28/2016, 04/04/2017 Influenza, Split 05/18/2012 Influenza, Trivalent, Adjuvanted, Intramuscular 04/17/2019 Influenza, Trivalent, High Dose, Split, Preservative Free, Intramuscular 03/23/2015, 03/12/2018, 04/17/2019 Influenza, Trivalent, Intramuscular 03/25/2014, 04/17/2015 Influenza, Unspecified 03/13/2018, 03/19/2021, 03/10/2022 Pfizer SARS-CoV-2 Vaccination (12+ YRS) DOSS-READY TO USE 01/11/2022 Pfizer SARS-CoV-2 Vaccination (12+ yrs) PURPLE 08/15/2020, 09/06/2020, 03/14/2021 Pfizer Sars-Cov-2 Bivalent Booster Vaccination (12+ YRS) 04/01/2022 Pneumococcal Conjugate PCV 13 02/18/2015 Pneumococcal Polysaccharide PPV23 05/17/2002, 04/26/2016 Tdap 05/18/2011, 08/23/2021 ZOSTER Recombinant 12/02/2020, 02/23/2021 A brief review of all your currently discussed problems, the pharmacy where your medications are sent, all active medications, and orders for each problem discussed today Primary Pharmacy/DME suppliers: [id number] [place], [place] - [address] AT [place] [address] [place] [address] [facility] - [place] [facility] AT Portal to Registered [facility] Sites [facility] [place] [address] [facility] [address] IN [place], [place] - [address] [address] ICD-9-CM ICD-10-CM 1. Annual physical exam V70.0 Z00.00 2. Chronic GERD [address] (PROTONIX) 20 mg EC tablet DISCONTINUED: pantoprazole DR (PROTONIX) 20 mg EC tablet 3. Restless legs syndrome 333.94 G25.81 clonazePAM (KlonoPIN) 0.25 mg disintegrating tablet pramipexole (MIRAPEX) 0.125 mg tablet DISCONTINUED: clonazePAM (KlonoPIN) 0.25 mg disintegrating tablet DISCONTINUED: pramipexole (MIRAPEX) 0.125 mg tablet 4. 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 401.1 I10 felodipine (PLENDIL) 5 mg 24 hr tablet spironolactone (Aldactone) 25 mg tablet furosemide (LASIX) 40 mg tablet DISCONTINUED: furosemide (LASIX) 40 mg tablet 5. Parkinson's disease (tremor, stiffness, slow motion, unstable posture) (CMS/HCC) (HCC) 332.0 N98umirasjldlq (MIRAPEX) 0.125 mg tablet DISCONTINUED: pramipexole (MIRAPEX) 0.125 mg tablet 6. Angioedema, subsequent encounter V58.89 T78.3XXD 995.1 7. Hereditary essential tremor 333.1 G25.0 propranoloL (INDERAL) 20 mg tablet 8. Fall, initial encounter E888.9 W19.XXXA XR Hip Left W Pelvis 2 or 3 Views 9. Left hip pain 719.45 M25.552 XR Hip Left W Pelvis 2 or 3 Views 10. Hx of bilateral hip replacements V43.64 Z96.643 XR Hip Left W Pelvis 2 or 3 Views PLEASE REVIEW this CARE TEAM and advise of any need for INCLUSIONS OR DELETIONS so I can keep your team informed of important changes in your health Patient Care Team: Pepper Morgan MD as PCP - General Hank Garibay MD as Surgeon (Orthopedic Surgery) Jacky Murry MD (Ophthalmology) Puma Mckenzie MD as Surgeon (Orthopedic Surgery) Neha Jackson PT as Physical Therapist (Physical Therapy) BRING IN ALL PILL BOTTLES TO EVERY [...] EVERY OFFICE VISIT. PLEASE SIGN UP FOR [employer] so that you may have access to your labs and chart documentation IF YOU HAVE TROUBLE WITH THIS PROCESS CALL [phone] Annual Exam finds the need for diet and exercise changes for 10% weight reduction over the next year. Consider seriously how you can start lifestyle changes of healthier diet and 30 minutes of daily aerobic exercise to reach our expected health goals. Please review the comprehensive yearly physical examination worksheet created for you today. laboratory results, immunization recommendations, and any tests required for preventive health are documented on this information sheet. OTHER IMPORTANT RECOMMENDATIONS NEGOTIATED THIS VISIT All exercises needed will be taught in [employer] boxing, this is extremely important for you to maintain your independence with Parkinson's over the next several years CHIEF COMPLAINT Annual Exam HISTORY OF PRESENT ILLNESS Tess Benedict returns today for Annual Medicare Examination, Medication Refill Management, discussion of Chronic Medical Problems associated orders and medications as well as Her concerns detailed in this HPI and the AVS note sent home with her. Issues discussed today included all new lab orders for the next follow-up visit, results of currentlab work, Annual Health Maintenance Recommendations ( Documented on the separately scanned in AMS Annual Physical Exam Worksheet ) and a brown bag medication review with all medications brought to the office, Refill Management where indicated ORDERS to review with her FROM LAST VISIT WITH Nd 01/24/[address] Arauz evaluate for PAD and aortic calcification and advise--the report on the scan is listed below in case the computer is down for her visit with him 2. Refer Dr. GALLARDO evaluate for kyphosis neck pain and help with muscle spasm 3. Refer to [facility] for neck program, she is going to try chiropractic 1st and if that does not work she may call back for this therapy 4. Labs for annual physical fasting lipid panel, chemistry panel, vitamin-D level, CBC, iron profile = atrial fibrillation PAD medication monitor 03/01/2022 Unable to cut Klonopin 0.5 mg successfully with half of the pill disintegrating on her. Will plan the oral disintegrating 0.25 mg tablet nightly ORDERS FOR Tess Benedict TO ARRANGE 1. Immunization recommendations: High-dose flu shot in March 2. Medication change For the restless leg and Parkinson's will plan to adjust Mirapex up to 3 tablets daily starting them when you are having tremor developed in the afternoon or evening and taking up to 3 tablets daily.You do not have to take the medicine the morning if you are not having problem For the sleep and restless leg we will switch to Klonopin 0.5 mg nightly, you do not need to take Mirapex at bedtime. This medication will help with the sleep disorder and with the tremor For the recurrent hives use Zyrtec 10 mg nightly and stop Claritin in the morning Pain medications are no longer needed, we discontinued hydrocodone tramadol and methocarbamol = Robaxin today DETAILS REGARDING THIS VISIT: Tess reports feeling fair, frustrated with her slow progressive decline in neurologic function 1. Annual physical exam Documented on the annual information sheet FURTHER NON ANNUAL PHYSICAL DETAILS REGARDING THIS VISIT required an additional 37 [id number]-ny-hwhr minutes of care time TO REVIEW HER CARDIAC WORKUP, REVIEW HER PARKINSON'S ENCOURAGED THE [employer] PROGRAM AND UPDATE REFILLS ALL MEDICATIONS LOCALLY THAT SHE IS RUNNING OUT OF UNTIL THE OF THE YEAR AND THEN AT 2 DIFFERENT PHARMACIES IN JUNE WHEN SHE HAS A CHANGE IN INSURANCE: 2. Chronic GERD Continues to have elevated body weight and does not feel the ability to come off the Protonix were go on to Pepcid, will reconsider after further weight loss hopefully initiated by the exercise program at [facility] and dietary changes that we have reviewed today pantoprazole DR (PROTONIX) 20 mg EC tablet; Take 1 tablet (20 mg total) by mouth daily With the largest meal Dispense: 90 tablet; Refill: 1 3. Restless legs syndrome Responding to 3 Mirapex and up to 2 Klonopin nightly with no troubles imbalance or falls clonazePAM (KlonoPIN) 0.25 mg disintegrating tablet; Take 1 tablet (0.25 mg total) by mouth 2 (two)times a day as needed for seizures Dispense: 60 tablet; Refill: 5 pramipexole (MIRAPEX) 0.125 mg tablet; Take 1 tablet (0.125 mg total) by mouth 3 (three) times a day Take up to 3 tablets daily starting them when you are having tremor developed in the afternoon or evening and taking up to 3 tablets daily. You do not have to take the medicine the morning if you are not having problem Dispense: 270 tablet; Refill: 1 4. 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 Well controlled. Inform the new insurance that she can not substitute Filodipine. Appreciate consultation help from Dr. Arauz with recent updated cardiac testing (-) for ischemia and with excellent control of her pedal edema occasionally requiring her Lasix twice daily and an extra half dose of Aldactone daily. Will continue to follow chemistry and BNP due for update at next visit felodipine (PLENDIL) 5 mg 24 hr tablet; Take 1 tablet (5 mg total) by mouth daily Dispense: 90 tablet; Refill: 1 spironolactone (Aldactone) 25 mg tablet; Take 0.5-1 tablets (12.5-25 mg total) by mouth daily Take 1/2 tablet daily Dispense: 90 tablet; Refill: 1 furosemide (LASIX) 40 mg tablet; Take 1 tablet (40 mg total) by mouth 2 (two) times a day as needed(Leg swelling from heart issue) Dispense: 180 tablet; Refill: 1 5. Parkinson's disease (tremor, stiffness, slow motion, unstable posture) ([facility]/HCC) ([facility]) Mirapex use for her restless leg is also working really well as her primary treatment for Parkinson's. She does need to start exercise and is referred to the [facility] boxing program. She is encouraged to have her sister attend and keep up the exercises at home in between the weekly visits to [facility] pramipexole (MIRAPEX) 0.125 mg tablet; Take 1 tablet (0.125 mg total) by mouth 3 (three) times a day Take up to 3 tablets daily starting them when you are having tremor developed in the afternoon or evening and taking up to 3 tablets daily. You do not have to take the medicine the morning if you are not having problem Dispense: 270 tablet; Refill: 1 6. Angioedema, subsequent encounter No recurrence of angioedema no longer able to tolerate Lenny or ARB 7. Hereditary essential tremor Excellent control continue on Inderal as our baseline beta-paul for this problem propranoloL (INDERAL) 20 mg tablet; Take 1 tablet (20 mg total) by mouth 2 (two) times a day as needed (Tremor) Dispense: 180 tablet; Refill: 1 PAST MEDICAL HISTORY Past Medical History: Diagnosis [...] TOTAL HIP ARTHROPLASTY Left 11/01/2021 Dr. Mckenzie, [facility]. FAMILY HISTORY family history includes Abdominal Aortic Aneurysm in her father; Arthritis in an other family member; COPD in her father; Cancer in an other family member. SOCIAL HISTORY Social History Tobacco Use Smoking status: Former Packs/day: 2.00 Years: 30.00 Pack years: 60.00 Types: Cigarettes Quit date: 1981 Years since quittin.9 Smokeless tobacco: Never Substance and Sexual Activity Drug use: Never Sexual activity: Defer Alcohol Use: Not At Risk Frequency of Alcohol Consumption: Monthly or less Average Number of Drinks: 1 or 2 Frequency of Binge Drinking: Never THE REVIEW OF SYSTEMS Review of Systems Constitutional: Positive for activity change and unexpected weight change. Negative for appetite change, fatigue and fever. HENT: Negative for congestion, dental problem, [...] pain and vaginal discharge. Musculoskeletal: Positive for back pain and gait problem. Negative for arthralgias, joint swelling and myalgias. Skin: Negative for color change and rash. Neurological: Positive for tremors. Negative for dizziness, weakness and headaches. Hematological: Negative for adenopathy. Does not bruise/bleed easily. Psychiatric/Behavioral: Positive for sleep disturbance (responsive to her medications). Negative for behavioral problems and dysphoric mood. The patient is not nervous/anxious. MEDICATIONS CHANGED / CLEANED UP THIS VISIT Medications Discontinued During This Encounter Medication Reason clonazePAM (KlonoPIN) 0.5 mg tablet Dose adjustment furosemide (LASIX) 40 mg [address] Reorder pantoprazole DR (PROTONIX) 20 mg EC tablet Reorder pramipexole (MIRAPEX) 0.125 mg tablet Reorder clonazePAM (KlonoPIN) 0.25 mg disintegrating tablet Reorder felodipine (PLENDIL) 5 mg 24 hr tablet Reorder propranoloL (INDERAL) 20 mg tablet Reorder spironolactone (Aldactone) 25 mg tablet Reorder pantoprazole DR (PROTONIX) 20 mg EC tablet Reorder clonazePAM (KlonoPIN) 0.25 mg disintegrating tablet Reorder furosemide (LASIX) 40 mg tablet Reorder pramipexole (MIRAPEX) 0.125 mg tablet Reorder MEDICATION LIST AT CONCLUSION OF THIS VISIT Current Outpatient Medications Ordered in [facility] Medication Sig Dispense Refill albuterol HFA (Proventil HFA) 90 mcg/actuation inhaler Inhale 2 puffs every 6 (six) hours as neededfor wheezing or shortness of breath 6.7 g 0 cetirizine (ZyrTEC) 10 mg tablet Take 1 tablet (10 mg total) by mouth nightly 90 tablet 3 cholecalciferol (VITAMIN D-3) 2000 unit tablet Take 2,000 Units by mouth daily clopidogreL (PLAVIX) 75 mg tablet Take 1 tablet (75 mg total) by mouth daily 90 tablet 3 metOLazone (ZAROXOLYN) 2.5 mg tablet Take 1 tablet (2.5 mg total) by mouth daily 90 tablet 3 polyethylene glycol (MIRALAX) 17 gram packet Take 17 g by mouth daily as needed for constipation rivaroxaban (XARELTO) 20 mg tablet Take 1 tablet (20 mg total) by mouth daily 30 tablet 1 [START ON 06/19/2022] clonazePAM (KlonoPIN) 0.25 mg disintegrating tablet Take 1 tablet (0.25 mg total) by mouth 2 (two) times a day as needed for seizures 60 tablet 5 [START ON 06/19/2022] felodipine (PLENDIL) 5 mg 24 hr tablet Take 1 tablet (5 mg total) by mouth daily 90 tablet 1 [START ON 06/19/2022] furosemide (LASIX) 40 mg tablet Take 1 tablet (40 mg total) by mouth 2 (two) times a day as needed (Leg swelling from heart issue) 180 tablet 1 [START ON 06/19/2022] pantoprazole DR (PROTONIX) 20 mg EC tablet Take 1 tablet (20 mg total) by mouthdaily With the largest meal 90 tablet 1 [START ON 06/19/2022] pramipexole (MIRAPEX) 0.125 mg tablet Take 1 tablet (0.125 mg total) by mouth 3(three) times a day Take up to 3 tablets daily starting them when you are having tremor developed in the afternoon or evening and taking up to 3 tablets daily. You do not have to take the medicine the morning if you are not having problem 270 tablet 1 [START ON 06/19/2022] propranoloL (INDERAL) 20 mg tablet Take 1 tablet (20 mg total) by mouth 2 (two)times a day as needed (Tremor) 180 tablet 1 [START ON 06/19/2022] spironolactone (Aldactone) 25 mg tablet Take 0.5-1 tablets (12.5-25 mg total) by mouth daily Take 1/2 tablet daily 90 tablet 1 No current [facility]-ordered facility-administered medications on file. ALLERGIES is allergic to celecoxib, scopolamine, sulfa (sulfonamide antibiotics), amlodipine, lisinopril, trazodone, cymbalta [duloxetine], and sinemet [carbidopa-levodopa]. PHYSICAL EXAM body mass index is 34.39 kg/m??. Vitals: 06/08/22 1015 BP: 110/70 BP Location: Right arm Patient Position: Sitting Pulse: 68 Resp: 12 Temp: 36.2 ??C (97.1 ??F) TempSrc: Temporal SpO2: 97% Weight: 85.3 kg (188 lb) Height: 157.5 cm (5' 2 ) Physical Exam Vitals and nursing note reviewed. Constitutional: General: She is not in acute distress. Appearance: Normal appearance. She is well-developed. She is obese. She is not ill-appearing. HENT: Head: Normocephalic and atraumatic. Right Ear: External ear normal. Left Ear: External ear normal. Ears: Comments: Dry wax in both external ear canals prevents up the duration of the tympanic membranes however her hearing is normal Nose: Nose normal. No congestion or rhinorrhea. Mouth/Throat: Mouth: Mucous membranes are moist. Pharynx: Oropharynx is clear. No oropharyngeal exudate or posterior oropharyngeal erythema. Comments: Dentures and partials fit well the oral tissues appear healthy Eyes: General: No scleral icterus. Extraocular Movements: Extraocular movements intact. Conjunctiva/sclera: Conjunctivae normal. Pupils: Pupils are equal, round, and reactive to light. Neck: Thyroid: No thyromegaly. Comments: Limited mobility with kyphosis thoracic spine unchanged from her baseline slight torticollis of the neck unchanged from baseline Cardiovascular: Rate and Rhythm: Normal rate and [...] rebound. Hernia: No hernia is present. 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 No swelling or tenderness. Cervical back: Neck supple. Right lower leg: No edema. Left lower leg: No edema. Lymphadenopathy: Cervical: No cervical adenopathy. Skin: General: Skin is warm and dry. Coloration: Skin is not jaundiced. Findings: No bruising, erythema, lesion or rash. Neurological: Mental Status: She is alert and oriented to person, place, and time. Mental status is at baseline. Cranial Nerves: No cranial nerve deficit. Sensory: No sensory deficit. Motor: No weakness or abnormal muscle tone. Coordination: Coordination abnormal. Gait: Gait normal. Deep Tendon Reflexes: Reflexes are normal and symmetric. Reflexes normal. Comments: Parkinson's tremor if left-hand greater than right minimal cogwheel rigidity really doingremarkably well with her balance considering her problem however she does have difficulty with tandem gait balance especially 1 ft in front of the other Psychiatric: Mood and Affect: Mood normal. Behavior: Behavior normal. Thought Content: Thought content normal. Judgment: Judgment normal. Comprehensive physical examination was completed today and specifics of the testing and counseling are recorded on the scanned Comprehensive Yearly Physical Exam Worksheet. . Tess Benedict personal health goals were negotiated [...] in the After Visit Summary = VS. REVIEW OF HEALTH MAINTENANCE TESTING The health maintenance schedule was reviewed IN DETAIL with the patient and ACCURATELY RECORDED ON THE AMS ANNUAL PHYSICAL COUNSELING SHEET PROVIDED TO THE PATIENT TODAY, I have also provided in computerized printed form in the after visit summary: As the ???HMLIST ?? Health Maintenance Topic Date Due Osteoporosis Screening-Bone Density Scan Never done Fall Risk Assessment 06/08/2023 Depression Screening-PHQ 06/08/2023 Well Visit 65+ 06/08/2023 DTaP/Tdap/Td Vaccine (3 - Td or Tdap) 08/24/2031 Covid-19 Vaccine Completed Pneumococcal vaccine 65+ Completed Influenza Vaccine Completed Zoster Vaccines Completed WHICH IS INCOMPLETE UNTIL A SOLUTION CAN BE FOUND FOR THE 24 HR TURN AROUND UPDATE PROBLEM IN EPIC. That HEALTH MAINTENANCE REVIEW include the following evaluation and recommendations: 1. A personalized Diet and exercise program recommendation agreed upon by the patient, 2. Referral for preventative services that are now due or later this year, 3. PHYSICAL EXAM FINDINGS ARE listed in the physical exam section of this note: Including balance and gait evaluation with ???get up and go testing ?? , the bedside hearing screening for each ear perDOT physical protocol,, 4. REVIEW OF ALL HEALTH MAINTENANCE TESTING DOCUMENTED WHEN POSSIBLE IN [facility] FLOW SHEETS INCLUDING:PHQ depression screening, HRA screening, cognitive evaluation with 3 ITEM RECALL( with clock draw and BARD ADL/IADL screening when appropriate), FALL RISK ASSESSMENT. Appropriate documented not available on [employer] are on the scanned preventive health document created today. UTILITY SALES REPRESENTATIVE REVIEW COMPLETED WITH administrative tasks including DME provider recommendations when Appropriate. THE PHARMACY SECTION CONTAIN primary secondary and mail order pharmacy choices selected by Tess Morgan M.D. THE FOLLOWING CLERICAL INFORMATION DOES NOT DUE TO BE SENT IN A PRINTED DOCUMENT LABS REVIEWED WITH Tess Benedict THIS VISIT Lab on 05/26/2022 Component Date Value Ref Range Status Sodium 05/26/2022 131 (L) 135 - 145 mmol/L Final Potassium, pl 05/26/2022 3.7 3.3 - 4.9 mmol/L Final Chloride 05/26/2022 92 (L) 97 - 110 mmol/L Final CO2 05/26/2022 33 (H) 22 - 32 mmol/L Final Anion gap 05/26/2022 6 2 - 15 mmol/L Final BUN 05/26/2022 15 8 - 25 mg/dL Final Creatinine 05/26/2022 0.73 0.60 - 1.10 mg/dL Final Glucose 05/26/2022 85 70 - 199 mg/dL Final Calcium 05/26/2022 9.3 8.5 - 10.3 mg/dL Final NT-proBNP 05/26/2022 2,050 (H) <=450 pg/mL Final eGFR 05/26/2022 81 mL/min/1.73 m2 Final Lab on 05/05/2022 Component Date Value Ref Range Status Sodium 05/05/2022 126 (L) 135 - 145 mmol/L Final Potassium, pl 05/05/2022 3.4 3.3 - 4.9 mmol/L Final Chloride 05/05/2022 83 (L) 97 - 110 mmol/L Final CO2 05/05/2022 33 (H) 22 - 32 mmol/L Final Anion gap 05/05/2022 11 2 - 15 mmol/L Final BUN 05/05/2022 19 8 - 25 mg/dL Final Creatinine 05/05/2022 0.64 0.60 - 1.10 mg/dL Final Glucose 05/05/2022 110 70 - 199 mg/dL Final Calcium 05/05/2022 9.5 8.5 - 10.3 mg/dL Final NT-proBNP 05/05/2022 1,808 (H) <=450 pg/mL Final eGFR 05/05/2022 87 mL/min/1.73 m2 Final Lab on 04/28/2022 Component Date Value Ref Range Status Sodium 04/28/2022 127 (L) 135 - 145 mmol/L Final Potassium, pl 04/28/2022 3.8 3.3 - 4.9 mmol/L Final Chloride 04/28/2022 87 (L) 97 - 110 mmol/L Final CO2 04/28/2022 30 22 - 32 mmol/L Final Anion gap 04/28/2022 11 2 - 15 mmol/L Final BUN 04/28/2022 20 8 - 25 mg/dL Final Creatinine 04/28/2022 0.68 0.60 - 1.10 mg/dL Final Glucose 04/28/2022 72 70 - 199 mg/dL Final Calcium 04/28/2022 9.3 8.5 - 10.3 mg/dL Final NT-proBNP 04/28/2022 1,801 (H) <=450 pg/mL Final eGFR 04/28/2022 86 mL/min/1.73 m2 Final Lab on 04/18/2022 Component Date Value Ref Range Status NT-proBNP 04/18/2022 1,998 (H) <=450 pg/mL Final Sodium 04/18/2022 135 135 - 145 mmol/L Final Potassium, pl 04/18/2022 4.0 3.3 - 4.9 mmol/L Final Chloride 04/18/2022 99 97 - 110 mmol/L Final CO2 04/18/2022 30 22 - 32 mmol/L Final Anion gap 04/18/2022 6 2 - 15 mmol/L Final BUN 04/18/2022 15 8 - 25 mg/dL Final Creatinine 04/18/2022 0.62 0.60 - 1.10 mg/dL Final Glucose 04/18/2022 99 70 - 199 mg/dL Final Calcium 04/18/2022 9.6 8.5 - 10.3 mg/dL Final eGFR 04/18/2022 88 mL/min/1.73 m2 Final Admission on 03/24/2022, Discharged on 03/24/2022 Component Date Value Ref Range Status Sodium 03/24/2022 138 135 - 145 mmol/L Final Potassium, pl 03/24/2022 4.2 3.3 - 4.9 mmol/L Final Chloride 03/24/2022 101 97 - 110 mmol/L Final CO2 03/24/2022 28 22 - 32 mmol/L Final Anion gap 03/24/2022 9 2 - 15 mmol/L Final BUN 03/24/2022 17 8 - 25 mg/dL Final Creatinine 03/24/2022 0.69 0.60 - 1.10 mg/dL Final Glucose 03/24/2022 92 70 - 199 mg/dL Final Calcium 03/24/2022 9.4 8.5 - 10.3 mg/dL Final PT 03/24/2022 12.0 9.2 - 13.5 sec Final INR 03/24/2022 1.1 0.9 - 1.2 Final eGFR 03/24/2022 86 mL/min/1.73 m2 Final Lab on 02/14/2022 Component Date Value Ref Range Status PT 02/14/2022 16.6 (H) 9.2 - 13.5 sec Final INR 02/14/2022 1.5 (H) 0.9 - 1.2 Final Sodium 02/14/2022 137 135 - 145 mmol/L Final Potassium, pl 02/14/2022 3.8 3.3 - 4.9 mmol/L Final Chloride 02/14/2022 100 97 - 110 mmol/L Final CO2 02/14/2022 31 22 - 32 mmol/L Final Anion gap 02/14/2022 7 2 - 15 mmol/L Final BUN 02/14/2022 15 8 - 25 mg/dL Final Creatinine 02/14/2022 0.64 0.60 - 1.10 mg/dL Final Glucose 02/14/2022 87 70 - 199 mg/dL Final Calcium 02/14/2022 9.5 8.5 - 10.3 mg/dL Final WBC 02/14/2022 6.3 3.8 - 9.9 K/cumm Final Hgb 02/14/2022 13.4 11.9 - 15.5 g/dL Final Hct 02/14/2022 42.1 35.6 - 45.5 % Final Plt 02/14/2022 281 150 - 400 K/cumm Final MPV 02/14/2022 9.3 9.1 - 12.3 fL Final RBC 02/14/2022 4.95 3.90 - 5.20 M/cumm Final MCV 02/14/2022 85.1 81.3 - 96.4 fL Final MCH 02/14/2022 27.1 27.1 - 33.3 pg Final MCHC 02/14/2022 31.8 (L) 32.3 - 35.7 g/dL Final RDW CV 02/14/2022 13.5 11.1 - 14.9 % Final RDW SD 02/14/2022 42.0 35.7 - 48.1 fL Final NRBC abs 02/14/2022 0.00 0.00 - 0.01 K/cumm Final Neutrophil abs 02/14/2022 4.3 1.7 - 6.5 K/cumm Final Imm gran abs 02/14/2022 0.0 0.0 - 0.1 K/cumm Final Lymphocyte abs 02/14/2022 1.0 0.8 - 3.3 K/cumm Final Monocyte abs 02/14/2022 0.6 0.2 - 0.8 K/cumm Final Eosinophil abs 02/14/2022 0.4 0.0 - 0.5 K/cumm Final Basophil abs 02/14/2022 0.1 0.0 - 0.1 K/cumm Final Neutrophil pct 02/14/2022 67.6 % Final Imm gran pct 02/14/2022 0.5 % Final Lymphocyte pct 02/14/2022 15.1 % Final Monocyte pct 02/14/2022 8.8 % Final Eosinophil pct 02/14/2022 7.0 % Final Basophil pct 02/14/2022 1.0 % Final eGFR 02/14/2022 87 mL/min/1.73 m2 Final Office Visit on 01/24/2022 Component Date Value Ref Range Status Cholesterol 05/23/2022 185 <200 mg/dL Final HDL 05/23/2022 54 > OR = 50 mg/dL Final Triglycerides 05/23/2022 119 <150 mg/dL Final LDL 05/23/2022 108 (H) mg/dL (calc) Final Chol/HDL ratio 05/23/2022 3.4 <5.0 (calc) Final Non-HDL, (LDL+VLDL) 05/23/2022 131 (H) <130 mg/dL (calc) Final Glucose 05/23/2022 88 65 - 139 mg/dL Final BUN 05/23/2022 23 7 - 25 mg/dL Final Creatinine 05/23/2022 0.75 0.60 - 0.95 mg/dL Final eGFR 05/23/2022 78 > OR = 60 mL/min/1.73m2 Final BUN/creat ratio 05/23/2022 NOT APPLICABLE 6 - 22 (calc) Final Sodium 05/23/2022 133 (L) 135 - 146 mmol/L Final Potassium, pl 05/23/2022 3.7 3.5 - 5.3 mmol/L Final Chloride 05/23/2022 91 (L) 98 - 110 mmol/L Final CO2 05/23/2022 34 (H) 20 - 32 mmol/L Final Calcium 05/23/2022 9.7 8.6 - 10.4 mg/dL Final Protein, sr 05/23/2022 6.7 6.1 - 8.1 g/dL Final Albumin 05/23/2022 4.0 3.6 - 5.1 g/dL Final GLOBULIN 05/23/2022 2.7 1.9 - 3.7 g/dL (calc) Final Alb/glob ratio 05/23/2022 1.5 1.0 - 2.5 (calc) Final Bilirubin, total 05/23/2022 0.5 0.2 - 1.2 mg/dL Final Alk phos 05/23/2022 104 37 - 153 U/L Final AST 05/23/2022 17 10 - 35 U/L Final ALT (SGPT) 05/23/2022 13 6 - 29 U/L Final WBC 05/23/2022 6.9 3.8 - 10.8 Thousand/uL Final RBC, POC 05/23/2022 5.25 (H) 3.80 - 5.10 Million/uL Final Hgb 05/23/2022 14.0 11.7 - 15.5 g/dL Final Hct 05/23/2022 44.0 35.0 - 45.0 % Final MCV 05/23/2022 83.8 80.0 - 100.0 fL Final MCH 05/23/2022 26.7 (L) 27.0 - 33.0 pg Final MCHC 05/23/2022 31.8 (L) 32.0 - 36.0 g/dL Final Rdw 05/23/2022 14.1 11.0 - 15.0 % Final Platelets 05/23/2022 400 140 - 400 Thousand/uL Final MPV 05/23/2022 9.4 7.5 - 12.5 fL Final Neutrophils, abs 05/23/2022 4,637 1,500 - 7,800 cells/uL Final Lymphocytes, abs 05/23/2022 1,214 850 - 3,900 cells/uL Final Monocyte abs 05/23/2022 580 200 - 950 cells/uL Final Eosinophils, abs 05/23/2022 380 15 - 500 cells/uL Final Basophils, abs 05/23/2022 90 0 - 200 cells/uL Final Neutrophils 05/23/2022 67.2 % Final Lymphocyte pct 05/23/2022 17.6 % Final Monocytes 05/23/2022 8.4 % Final Eosinophils 05/23/2022 5.5 % Final Basophils 05/23/2022 1.3 % Final Iron 05/23/2022 62 45 - 160 mcg/dL Final TIBC 05/23/2022 384 250 - 450 mcg/dL (calc) Final Iron saturation 05/23/2022 16 16 - 45 % (calc) Final Vitamin D 25-OH 05/23/2022 58 30 - 100 ng/mL Final Office Visit on 11/19/2021 Component Date Value Ref Range Status Glucose 12/01/2021 83 65 - 139 mg/dL Final BUN 12/01/2021 19 7 - 25 mg/dL Final Creatinine 12/01/2021 0.72 0.60 - 0.88 mg/dL Final eGFR NON-AFR. CHILEAN 12/01/2021 77 > OR = 60 mL/min/1.73m2 Final EGFR 12/01/2021 89 > OR = 60 mL/min/1.73m2 Final BUN/creat ratio 12/01/2021 NOT APPLICABLE 6 - 22 (calc) Final Sodium 12/01/2021 133 (L) 135 - 146 mmol/L Final Potassium, pl 12/01/2021 4.1 3.5 - 5.3 mmol/L Final Chloride 12/01/2021 94 (L) 98 - 110 mmol/L Final CO2 12/01/2021 33 (H) 20 - 32 mmol/L Final Calcium 12/01/2021 9.1 8.6 - 10.4 mg/dL Final Office Visit on 11/11/2021 Component Date Value Ref Range Status Glucose 11/12/2021 91 65 - 99 mg/dL Final BUN 11/12/2021 17 7 - 25 mg/dL Final Creatinine 11/12/2021 0.65 0.60 - 0.88 mg/dL Final eGFR NON-AFR. CHILEAN 11/12/2021 82 > OR = 60 mL/min/1.73m2 Final EGFR 11/12/2021 95 > OR = 60 mL/min/1.73m2 Final BUN/creat ratio 11/12/2021 NOT APPLICABLE 6 - 22 (calc) Final Sodium 11/12/2021 134 (L) 135 - 146 mmol/L Final Potassium, pl 11/12/2021 4.8 3.5 - 5.3 mmol/L Final Chloride 11/12/2021 93 (L) 98 - 110 mmol/L Final CO2 11/12/2021 31 20 - 32 mmol/L Final Calcium 11/12/2021 9.5 8.6 - 10.4 mg/dL Final WBC 11/12/2021 9.9 3.8 - 10.8 Thousand/uL Final RBC, POC 11/12/2021 4.13 3.80 - 5.10 Million/uL Final Hgb 11/12/2021 11.4 (L) 11.7 - 15.5 g/dL Final Hct 11/12/2021 35.8 35.0 - 45.0 % Final MCV 11/12/2021 86.7 80.0 - 100.0 fL Final MCH 11/12/2021 27.6 27.0 - 33.0 pg Final MCHC 11/12/2021 31.8 (L) 32.0 - 36.0 g/dL Final Rdw 11/12/2021 14.1 11.0 - 15.0 % Final Platelets 11/12/2021 584 (H) 140 - 400 Thousand/uL Final MPV 11/12/2021 9.1 7.5 - 12.5 fL Final Neutrophils, abs 11/12/2021 7,613 1,500 - 7,800 cells/uL Final Lymphocytes, abs 11/12/2021 1,030 850 - 3,900 cells/uL Final Monocyte abs 11/12/2021 713 200 - 950 cells/uL Final Eosinophils, abs 11/12/2021 465 15 - 500 cells/uL Final Basophils, abs 11/12/2021 79 0 - 200 cells/uL Final Neutrophils 11/12/2021 76.9 % Final Lymphocyte pct 11/12/2021 10.4 % Final Monocytes 11/12/2021 7.2 % Final Eosinophils 11/12/2021 4.7 % Final Basophils 11/12/2021 0.8 % Final Admission on 11/08/2021, Discharged on 11/09/2021 Component Date Value Ref Range Status WBC 11/08/2021 7.9 3.8 - 9.9 K/cumm Final Hgb 11/08/2021 11.2 (L) 11.9 - 15.5 g/dL Final Hct 11/08/2021 34.7 (L) 35.6 - 45.5 % Final Plt 11/08/2021 428 (H) 150 - 400 K/cumm Final MPV 11/08/2021 9.2 9.1 - 12.3 fL Final RBC 11/08/2021 4.01 3.90 - 5.20 M/cumm Final MCV 11/08/2021 86.5 81.3 - 96.4 fL Final MCH 11/08/2021 27.9 27.1 - 33.3 pg Final MCHC 11/08/2021 32.3 32.3 - 35.7 g/dL Final RDW CV 11/08/2021 14.7 11.1 - 14.9 % Final RDW SD 11/08/2021 46.9 35.7 - 48.1 fL Final NRBC abs 11/08/2021 0.00 0.00 - 0.01 K/cumm Final Sodium 11/08/2021 129 (L) 135 - 145 mmol/L Final Potassium, pl 11/08/2021 4.4 3.3 - 4.9 mmol/L Final Chloride 11/08/2021 90 (L) 97 - 110 mmol/L Final CO2 11/08/2021 32 22 - 32 mmol/L Final Anion gap 11/08/2021 8 2 - 15 mmol/L Final BUN 11/08/2021 20 8 - 25 mg/dL Final Creatinine 11/08/2021 0.84 0.60 - 1.10 mg/dL Final Glucose 11/08/2021 119 70 - 199 mg/dL Final Calcium 11/08/2021 9.0 8.5 - 10.3 mg/dL Final Bilirubin, total 11/08/2021 0.4 0.1 - 1.2 mg/dL Final Protein, pl 11/08/2021 6.6 6.5 - 8.5 g/dL Final Albumin 11/08/2021 3.5 3.5 - 5.0 g/dL Final Alk phos 11/08/2021 142 (H) 40 - 130 Units/L Final ALT 11/08/2021 16 7 - 45 Units/L Final AST 11/08/2021 23 10 - 45 Units/L Final D-Dimer 11/08/2021 1,417 (H) <=499 ng/mL FEU Final Neutrophil abs 11/08/2021 5.3 1.7 - 6.5 K/cumm Final Imm gran abs 11/08/2021 0.2 (H) 0.0 - 0.1 K/cumm Final Lymphocyte abs 11/08/2021 1.2 0.8 - 3.3 K/cumm Final Monocyte abs 11/08/2021 0.7 0.2 - 0.8 K/cumm Final Eosinophil abs 11/08/2021 0.5 0.0 - 0.5 K/cumm Final Basophil abs 11/08/2021 0.1 0.0 - 0.1 K/cumm Final Neutrophil pct 11/08/2021 67.8 % Final Imm gran pct 11/08/2021 2.2 % Final Lymphocyte pct 11/08/2021 14.9 % Final Monocyte pct 11/08/2021 8.5 % Final Eosinophil pct 11/08/2021 6.0 % Final Basophil pct 11/08/2021 0.6 % Final eGFR 11/08/2021 69 mL/min/1.73 m2 Final CK 11/09/2021 114 30 - 200 Units/L Final Lactate 11/09/2021 0.9 0.7 - 2.0 mmol/L Final NT-proBNP 11/09/2021 2,821 (H) <=450 pg/mL Final Sodium 11/09/2021 129 (L) 135 - 145 mmol/L Final Potassium, pl 11/09/2021 4.3 3.3 - 4.9 mmol/L Final Chloride 11/09/2021 89 (L) 97 - 110 mmol/L Final CO2 11/09/2021 31 22 - 32 mmol/L Final Anion gap 11/09/2021 9 2 - 15 mmol/L Final BUN 11/09/2021 19 8 - 25 mg/dL Final Creatinine 11/09/2021 0.74 0.60 - 1.10 mg/dL Final Glucose 11/09/2021 123 70 - 199 mg/dL Final Calcium 11/09/2021 9.3 8.5 - 10.3 mg/dL Final eGFR 11/09/2021 80 mL/min/1.73 m2 Final There may be more visits with results that are not included. 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 Chronic GERD K21.9 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 I10 Restless legs syndrome G25.81 Bariatric surgery status Z98.84 Insomnia, persistent G47.00 Chronic pain disorder G89.4 Knee joint replacement status, bilateral Z96.653 History of malignant melanoma Z85.820 Atrial fibrillation ([facility]) ([facility]) I48.91 Angio-edema T78.3XXA Allergic rhinitis due to allergen J30.9 Spinal stenosis of lumbar region with neurogenic claudication M48.062 Peripheral arterial disease ([facility]) ([facility]) I73.9 intermediate current use of anticoagulant Z79.01 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.42, G89.29 Tremor R25.1 Parkinson's disease (tremor, stiffness, slow motion, unstable posture) ([facility]) ([facility]) G20 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 us Pepper Morgan MD IMG XR PROCEDURES Final Re sult documented in this encounter Visit Diagnoses Diagnosis Annual physical exam- Primary Routine general medical examination at a [facility] care facility Chronic GERD Restless legs syndrome Restless legs syndrome (RLS) 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 Essential hypertension, benign Parkinson's disease (tremor, stiffness, slow motion, unstable posture) (HCC) Paralysis agitans Angioedema, subsequent encounter Hereditary essential tremor Essential and other specified forms of tremor Fall, initial encounter Left hip pain Pain in joint, pelvic region and thigh Hx of bilateral hip replacements Fall, initial encounter Left hip pain Pain in joint, pelvic region and thigh Hx of bilateral hip replacements documented in this encounter Discontinued Medications Medication Sig Discontinue Reason Start Date End Da te clonazePAM (KlonoPIN) 0.5 mg tabletIndications:Restles s legs syndrome Take 1 tablet (0.5 mg total) by mouth nightly for 7 days Dose adjustment 02/04/2022 06/08/2022 furosemide (LASIX) 40 mg tabletIndications: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 Take 1 tablet (40 mg total) by mouth daily Reorder 01/24/2022 06/08/[address] (PROTONIX) 20 mg EC tabletIndications:Chronic GERD Take 1 tablet (20 mg total) by mouth daily With the largest meal Reorder 01/24/2022 06/08/2022 pramipexole (MIRAPEX) 0.125 mg tabletIndications:Idiopat hic Parkinsonism,Restless Legs Syndrome Take up to 3 tablets daily starting them when you are having tremor developed in the afternoon or evening and taking up to 3 tablets daily. You do not have to take the medicine the morning if you are not having problem Reorder 01/24/2022 06/08/2022 clonazePAM (KlonoPIN) 0.25 mg disintegrating tabletIndications:Restles s legs syndrome Take 1 tablet (0.25 mg total) by mouth 2 (two) times a day as needed for seizures Reorder 03/01/2022 06/08/2022 felodipine (PLENDIL) 5 mg 24 hr tabletIndications: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 Take 1 tablet (5 mg total) by mouth daily Reorder 01/24/2022 06/08/2022 propranoloL (INDERAL) 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:Heredit elmer essential tremor Take 1 tablet (20 mg total) by mouth 2 (two) times a day as needed (Tremor) Reorder 01/24/2022 06/08/2022 spironolactone (Aldactone) 25 mg tabletIndications: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 Take 0.5 tablets (12.5 mg total) by mouth daily Take 1/2 tablet daily Reorder 01/24/2022 06/08/[address] (PROTONIX) 20 mg EC tabletIndications:Chronic GERD Take 1 tablet (20 mg total) by mouth daily With the largest meal Reorder 06/08/2022 06/08/2022 clonazePAM (KlonoPIN) 0.25 mg disintegrating tabletIndications:Restles s legs syndrome Take 1 tablet (0.25 mg total) by mouth 2 (two) times a day as needed for seizures Reorder 06/08/2022 06/08/2022 furosemide (LASIX) 40 mg tabletIndications: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 Take 1 tablet (40 mg total) by mouth 2 (two) times a day as needed (Leg swelling from heart issue) Reorder 06/08/2022 06/08/2022 pramipexole (MIRAPEX) 0.125 mg tabletIndications:Idiopat hic Parkinsonism,Restless Legs Syndrome Take up to 3 tablets daily starting them when you are having tremor developed in the afternoon or evening and taking up to 3 tablets daily. You do not have to take the medicine the morning if you are not having problem Reorder 06/08/2022 06/08/2022 documented as of this encounter Care Teams Sanforizing Machine Operator Relationship Specialty Start Date End Date Pepper Morgan MD PCP - General 09/16/16 Hank Garibay MD [address] [place] [address] [place] [address] Surgeon Orthopedic Surgery 03/27/17 Jacky Murry MD [address] [facility] [address] [place] [address] Ophthalmology 03/27/17 Puma Mckenzie MD [address] [facility] [address] [address] [place] [address] Surgeon Orthopedic Surgery 07/11/19 Neha Jackson, PT Physical Therapist Physical Therapy 12/01/21 documented as of this encounter
--- OUTSIDE RECORDS SUMMARY | 2024-06-18 18:55 | XMS_ITS | Encounter Summary ---
Author Organization [facility] Address [address] [place] [address] Care Team Providers Care Pressing Machine Tender Name Role Phone Pepper Morgan MD Primary Care Provider + [phone] Hank Garibay MD Unavailable +[phone] Jacky Murry MD Unavailable +[phone] Puma Mckenzie MD Unavailable [phone] Neha Jackson PT Unavailable Unavailable Reason for Referral * Diagnostic Imaging (Routine) - Closed Specialty Diagnoses / Procedures Referred By Olga t Referred To Contact Diagnoses Paroxysmal atrial fibrillation (CMS/HCC) (HCC) Procedures NM MPI SPECT (Rest and/or Stress) Multiple Studies Stalin Arauz MD [address] [place] [address] Phone: tel: fax: [address] [address] Referral ID Status Reason Start Date Expiration Date Visits Re quested Visits Authorized [id number] Closed 04/18/2022 05/18/2023 1 1 OR PUBLICATIONS Reason for Visit * Diagnostic Imaging (Routine) - Closed Specialty Diagnoses / Procedures Referred By Contac t Referred To Contact Diagnoses Paroxysmal atrial fibrillation (CMS/HCC) (HCC) Procedures NM MPI SPECT (Rest and/or Stress) Multiple Studies Stalin Arauz MD [address] [facility] [address] [place] [address] Phone: tel: fax: [address] [address] Referral ID Status Reason Start Date Expiration Date Visits Re quested Visits Authorized [id number] Closed 04/18/2022 05/18/2023 1 1 Encounter Details Date Type Department Care Team (Latest Contact Info) Description 05/09/2022 8:03 AM EDITOR PUBLICATIONS Hospital Encounter [facility] [address] [place] [address] Paroxysmal atrial fibrillation (CMS/HCC) ([facility]) Discharge Disposition: Discharge to home or self [...] on file Legal Sex Female 4:33 AM EDITOR PUBLICATIONS Gender Identity Not on file Sexual Orientation [...] Procedure Name Priority Date/Time Associated Diagnosis Comments NM MPI SPECT (REST AND/OR STRESS) MULTIPLE STUDIES Schedule Routine, Read Routine (OP Routine) 05/09/2022 10:44 AM EDITOR PUBLICATIONS Paroxysmal atrial fibrillation (CMS/HCC) (HCC) STRESS TEST FOR DUAL READ Schedule Routine, Read Routine (OP Routine) 05/09/2022 10:44 AM EDITOR PUBLICATIONS Paroxysmal atrial fibrillation (CMS/HCC) (HCC) documented in this encounter Results * Stress Test for Myocardial Perfusion (05/09/2022 10:44 AM EDITOR PUBLICATIONS) Anatomical Region Laterality Modality Nuclear Medicine 05/09/2022 8:30 AM EDITOR PUBLICATIONS Narrative 05/09/2022 10:17 AM EDITOR PUBLICATIONS [address] [place] [address] Biaiscan Report ADDENDUM Patient Name: TESS BENEDICT I [...] Electronically Signed By: Eric Bashir 2022-05-09 11:58:27 EDITOR PUBLICATIONS CC: CC: Procedure Note Eric Bashir MD - 05/09/[address] [place] [address] Snapd Appan Report ADDENDUM Patient Name: TESS BENEDICT IPatient ID: [id number] : [id number] Date: 05/09/2022 8:30:00 AM Gender: FAccession #: [id number] Tech: adan castellonRef.Provider: STALIN ARAUZ Height(Cm): 152BSA: Weight(Kg): 184Heart Rate: [...] Electronically Signed By: Eric Bashir 2022-05-09 11:58:27 EDITOR PUBLICATIONS CC: CC: Stalin Arauz MD CV STRESS PROCEDURES Edited Res ult - Final * NM MPI SPECT (Rest and/or Stress) Multiple Studies (05/09/2022 10:44 AM EDITOR PUBLICATIONS) Anatomical Region Laterality Modality Body N/A Nuclear Medicine 05/09/2022 7:51 AM EDITOR PUBLICATIONS Narrative 05/09/2022 6:09 PM EDITOR PUBLICATIONS [address] [address] Pagevamp Report Patient Name: TESS BENEDICT I : [...] Signed By: Hyacinth Cortez MD 2022-05-09 18:09:22 EDITOR PUBLICATIONS Procedure Note Hyacinth Cortez MD - 05/09/[address] [address] Lexiscan Report Patient Name: TESS BENEDICT IPatient ID: [id number] : [id number] Date: 05/09/2022 7:51:07 AM Gender: FAccession #: [id number] Tech: Ref.Provider: STALIN ARAUZ Height(Cm): BSA: Weight(Kg): [...] Signed By: Hyacinth Cortez MD 2022-05-09 18:09:22 EDITOR PUBLICATIONS Stalin Arauz MD [facility] PROCEDURES Final Result documented in this encounter Visit Diagnoses Diagnosis Paroxysmal atrial fibrillation (CMS/HCC) (HCC) Atrial fibrillation documented in this encounter Administered Medications Inactive Administered Medications - up to 3 most recent administrations Medication Order MAR Action Action Date Dose Rate Site tc-99m tetrofosmin (MYOVIEW) injection 8.6 millicurie 8.6 millicurie, intravenous, Once in imaging, radiopharmaceutical, Starting on Mon05/09/22 at 0831, For 1 dose, Indications: Diagnostic RadiographyIndications:Diag nostic Radiography Given 05/09/2022 8:25 AM EDITOR PUBLICATIONS 8.6 millicuries documented in this encounter Care Teams Pressing Machine Tender Relationship Specialty Start Date End Date Pepper Morgan MD PCP - General 09/16/16 Hank Garibay MD [address] [facility] [address] [place] [address] Surgeon Orthopedic Surgery 03/27/17 Jacky Murry MD [address] [place] [address] [address] [place] [address] Ophthalmology 03/27/17 Puma Mckenzie MD [address] [place] [address] [address] [place] [address] Surgeon Orthopedic Surgery 07/11/19 Neha Jackson PT Physical Therapist Physical Therapy 12/01/21 documented as of this encounter
--- OUTSIDE RECORDS SUMMARY | 2024-06-18 18:55 | XMS_ITS | Encounter Summary ---
Author Organization [facility] Address [address] [facility] [address] [place] [address] Care Team Providers Care Residential Property Manager Name Role Phone Pepper Morgan MD Primary Care Provider + [phone] Hank Garibay MD Unavailable [phone] Jacky Murry MD Unavailable [phone] Puma Mckenzie MD Unavailable [phone] Neha Jackson PT Unavailable Unavailable Encounter Details Date Type Department Care Team (Late st Contact Info) Description 05/30/2022 Telephone [place] [employer] Assembly Supervisor at [address] [place] [id number] Malena Gage Social History Tobacco Use [...] on file Legal Sex Female 4:33 AM AUTOTRANSFUSIONIST Gender Identity Not on file Sexual Orientation Not on file Occupation Industry Job Start Date Job End Date retired Not on file Not on file Not on file documented as of this encounter Miscellaneous Notes * Telephone Encounter - Malena Gage - 05/30/2022 1:52 PM CST Called pt that she doesn't have to do jd scan but needs to do her CT Chest TRANSFUSIONIST documented in this encounter Plan of Treatment [...] on filedocumented in this encounter Care Teams Residential Property Manager Relationship Specialty Start Date End Date Pepper Morgan MD PCP - General 09/16/16 Hank Garibay MD [address] [place] [address] [address] [place] [address] Surgeon Orthopedic Surgery 03/27/17 Jacky Murry MD [address] [place] [address] [address] [place] [address] Ophthalmology 03/27/17 Puma Mckenzie MD [address] [place] [address] [address] [place] [address] Surgeon Orthopedic Surgery 07/11/19 Neha Jackson, PT Physical Therapist Physical Therapy 12/01/21 documented as of this encounter
--- OUTSIDE RECORDS SUMMARY | 2024-06-18 18:55 | XMS_ITS | Encounter Summary ---
Author Organization [facility] Medical Group Address [address] [facility] [address] [place] [address] Care Team Providers Care Senior Security Analyst Name Role Phone Pepper Morgan MD Primary Care Provider + [phone] Hank Garibay MD Unavailable [phone] Jacky Murry MD Unavailable [phone] Puma Mckenzie MD Unavailable [phone] Neha Jackson PT Unavailable Unavailable Encounter Details Date Type Department Care Team (Late st Contact Info) Description 05/11/2022 Telephone [facility] [address] [place] [id number] Pepper Morgan MD [address] [place] [address] Social History Tobacco Use Types Packs/Day Years [...] on file Legal Sex Female 4:33 AM CARRIER DRIVER Gender Identity Not on file Sexual Orientation Not on file Occupation Industry Job Start Date Job End Date retired Not on file Not on file Not on file documented as of this encounter Miscellaneous Notes * Telephone Encounter - vEelyn Dejesus - 05/11/2022 8:53 AM CST error IER DRIVER documented in this encounter Plan of [...] filedocumented in this encounter Care Teams Senior Security Analyst Relationship Specialty Start Date End Date Pepper Morgan MD PCP - General 09/16/16 Hank Garibay MD [address] [facility] [address] [place] [address] Surgeon Orthopedic Surgery 03/27/17 Jacky Murry MD [address] [facility] [address] [place] [address] Ophthalmology 03/27/17 Puma Mckenzie MD [address] [place] [address] [address] [facility] [address] [place] [address] Surgeon Orthopedic Surgery 07/11/19 Neha Jackson, PT Physical Therapist Physical Therapy 12/01/21 documented as of this encounter
--- OUTSIDE RECORDS SUMMARY | 2024-06-18 18:55 | XMS_ITS | Encounter Summary ---
Author Organization [facility] Medical Group Address [address] [facility] [address] [place] [address] Care Team Providers Care Machine Shop Lead Man Name Role Phone Pepper Morgan MD Primary Care Provider + [phone] Hank Garibay MD Unavailable [phone] Jacky Murry MD Unavailable [phone] Puma Mckenzie MD Unavailable [phone] Neha Jackson PT Unavailable Unavailable Encounter Details Date Type Department Care Team (Late st Contact Info) Description 06/01/2022 Telephone [place] Assistant Community Manager at [address] [place] [phone] Malena Gage Social History Tobacco Use [...] on file Legal Sex Female 4:33 AM RECORD RETRIEVAL SPECIALIST Gender Identity Not on file Sexual Orientation Not on file Occupation Industry Job Start Date Job End Date retired Not on file Not on file Not on file documented as of this encounter Miscellaneous Notes * Telephone Encounter - Malena Gage - 06/01/2022 9:54 AM CST Called pt about Lasix dosage RD RETRIEVAL SPECIALIST documented in this encounter Plan of [...] on filedocumented in this encounter Care Teams Machine Shop Lead Man Relationship Specialty Start Date End Date Pepper Morgan MD PCP - General 09/16/16 Hank Garibay MD [address] [facility] [address] [place] [address] Surgeon Orthopedic Surgery 03/27/17 Jacky Murry MD [address] [facility] [address] [place] [address] Ophthalmology 03/27/17 Puma Mckenzie MD [address] [facility] [address] [place] [address] Surgeon Orthopedic Surgery 07/11/19 Neha Jackson PT Physical Therapist Physical Therapy 12/01/21 documented as of this encounter
--- OUTSIDE RECORDS SUMMARY | 2024-06-18 18:55 | XMS_ITS | Encounter Summary ---
Author Organization [facility] Medical [facility] Address [address] [facility] [address] [place] [address] Care Team Providers Care Room Inspector Name Role Phone Pepper Morgan MD Primary Care Provider + [phone] Hank Garibay MD Unavailable [phone] Jacky Murry MD Unavailable [phone] Puma Mckenzie MD Unavailable [phone] Neha Jackson PT Unavailable Unavailable Encounter Details Date Type Department Care Team (Late st Contact Info) Description 05/27/2022 Telephone [place] Residential Advisor at [address] [place] [phone] Hai Dalton MA Social History Tobacco [...] on file Legal Sex Female 4:33 AM HOSIERY KNITTER Gender Identity Not on file Sexual Orientation Not on file Occupation Industry Job Start Date Job End Date retired Not on file Not on file Not on file documented as of this encounter Miscellaneous Notes * Telephone Encounter - Hai Dalton MA - 07/19/2022 3:07 PM CST Left message on machine with dr response. ERY KNITTER * Telephone Encounter - Hai Dalton MA - 07/19/2022 2:14 PM CST Patient called stating her weight is now down 7lbs. And wants to know what you want her to do regarding her metolazone and Lasix. Please advise ERY KNITTER * Telephone Encounter - Hai Dalton MA - 07/15/2022 3:27 PM CST Left message with instructions. Patient to call on Monday ERY KNITTER * Telephone Encounter - Hai Dalton MA - 07/15/2022 2:20 PM CST Patient called with update and states she is not losing any water weight. She is taking lasix 60mg every day and metolazone 2.5 every day. She is only down one pound and states she will lose it but then the pound comes back. ERY KNITTER * Telephone Encounter - Saadia Rojas - 05/27/2022 3:04 PM CST Spoke with patient and informed of below. ERY KNITTER * Telephone Encounter - Saadia Rojas - 05/27/2022 2:50 PM CST Patient has gained 4 pounds since before , but says it might be from Holiday parties. She is currently on Spironolactone 25 mgs 1/2 tablet a day, Metolazone 2.5mg tablet every other day, and Furosemide 40mgs everyday. ERY KNITTER * Telephone Encounter - Hai Dalton MA - 05/27/2022 10:59 AM CST Left message for patient to call back for lab results and questions for Dr. Arauz regarding diuretic doses and wieght changes. ERY KNITTER documented in this encounter Plan of Treatment [...] on filedocumented in this encounter Care Teams Room Inspector Relationship Specialty Start Date End Date Pepper Morgan MD PCP - General 09/16/16 Hank Garibay MD [address] [place] [address] [address] [place] [address] Surgeon Orthopedic Surgery 03/27/17 Jacky Murry MD [address] [place] [address] [address] [place] [address] Ophthalmology 03/27/17 Puma Mckenzie MD [address] [facility] [place] [address] Surgeon Orthopedic Surgery 07/11/19 Neha Jackson PT Physical Therapist Physical Therapy 12/01/21 documented as of this encounter
--- OUTSIDE RECORDS SUMMARY | 2024-06-18 18:55 | XMS_ITS | Encounter Summary ---
Author Organization [facility] Address [address] [place] [address] Care Team Providers Care Textile Slitting Machine Operator Name Role Phone Pepper Morgan MD Primary Care Provider + [phone] Hank Garibay MD Unavailable [phone] Jacky Murry MD Unavailable [phone] Puma Mckenzie MD Unavailable [phone] Neha Jackson PT Unavailable Unavailable Encounter Details Date Type Department Care Team (Late st Contact Info) Description 06/02/2022 Orders Only [facility] Cardiology [address] [place] [address] Evelyn Kaufman Social History Tobacco Use Types Packs/Day Years [...] on file Legal Sex Female 4:33 AM TESTS SUPERINTENDENT Gender Identity Not on file Sexual Orientation [...] on filedocumented in this encounter Care Teams Textile Slitting Machine Operator Relationship Specialty Start Date End Date Pepper Morgan MD PCP - General 09/16/16 Hank Garibay MD [address] [facility] [address] [place] [address] Surgeon Orthopedic Surgery 03/27/17 Jacky Murry MD [address] [facility] [address] [place] [address] Ophthalmology 03/27/17 Puma Mckenzie MD [address] [facility] [address] [place] [address] Surgeon Orthopedic Surgery 07/11/19 Neha Jackson, KEVIN Physical Therapist Physical Therapy 12/01/21 documented as of this encounter
--- OUTSIDE RECORDS SUMMARY | 2024-06-18 18:55 | XMS_ITS | Encounter Summary ---
Author Organization [facility] Address [address] [place] [address] Care Team Providers Care Embossing Press Operator Molded Goods Name Role Phone Pepper Morgan MD Primary Care Provider + [phone] Hank Garibay MD Unavailable [phone] Jacky Murry MD Unavailable [phone] Puma Mckenzie MD Unavailable [phone] Neha Jackson PT Unavailable Unavailable Reason for Visit * Diagnostic Imaging (Routine) - Closed Specialty Diagnoses / Procedures Referred By Contac t Referred To Contact Diagnoses Paroxysmal atrial fibrillation (CMS/HCC) (HCC) Procedures NM MPI SPECT (Rest and/or Stress) Multiple Studies Stalin Arauz MD [address] [place] [address] [address] [place] [address] Phone: tel: fax: [address] [address] Referral ID Status Reason Start Date Expiration Date Visits Re quested Visits Authorized [id number] Closed 04/18/2022 05/18/2023 1 1 Encounter Details Date Type Department Care Team (Latest Contact Info) Description 05/09/2022 8:03 AM OUTBOUND SALES ADVISOR Hospital Encounter [facility] Cardiology [address] [place] [address] Discharge Disposition: Discharge to home or self [...] on file Legal Sex Female 4:33 AM OUTBOUND SALES ADVISOR Gender Identity Not on file Sexual [...] Read Routine (OP Routine) 05/09/2022 10:44 AM OUTBOUND SALES ADVISOR Paroxysmal atrial fibrillation (CMS/HCC) (HCC) NM MPI SPECT (REST AND/OR STRESS) MULTIPLE STUDIES Schedule Routine, Read Routine (OP Routine) 05/09/2022 10:44 AM OUTBOUND SALES ADVISOR Paroxysmal atrial fibrillation (CMS/HCC) (HCC) documented in this encounter Results * Stress Test for Myocardial Perfusion (05/09/2022 10:44 AM OUTBOUND SALES ADVISOR) Anatomical Region Laterality Modality Nuclear Medicine 05/09/2022 8:30 AM OUTBOUND SALES ADVISOR Narrative 05/09/2022 10:17 AM OUTBOUND SALES ADVISOR [address] [address] Lexiscan Report ADDENDUM Patient Name: TESS BENEDICT [...] Electronically Signed By: Eric Bashir 2022-05-09 11:58:27 OUTBOUND SALES ADVISOR CC: CC: Procedure Note Eric Bashir MD - 05/09/[address] [address] Lexiscan Report ADDENDUM Patient Name: TESS BENEDICT IPatient ID: [id number] : [id number] Date: 05/09/2022 8:30:00 AM Gender: FAccession #: [id number] Tech: adan Baptiste.Provider: STALIN ARAUZ Height(Cm): 152BSA: [...] Electronically Signed By: Eric Bashir 2022-05-09 11:58:27 OUTBOUND SALES ADVISOR CC: CC: Stalin Arauz MD CV STRESS PROCEDURES Edited Res ult - Final documented in this encounter Visit Diagnoses Not on filedocumented in this encounter Administered Medications Inactive Administered Medications - up to 3 most recent administrations Medication Order MAR Action Action Date Dose Rate Site regadenoson (LEXISCAN) 0.4 mg/5 mL injection 0.4 mg 0.4 mg, intravenous, Once, On Mon05/09/22 at 0845, For 1 dose, Intra-Procedure (CV), Administer IV push over 10 seconds., Indications: Myocardial Perfusion Imaging AdjunctIndications:Myocardial Perfusion Imaging Adjunct Given 05/09/2022 9:48 AM OUTBOUND SALES ADVISOR 0.4 mg documented in this encounter Care Teams Embossing Press Operator Molded Goods Relationship Specialty Start Date End Date Pepper Morgan MD PCP - General 09/16/16 Hank Garibay MD [address] [facility] [address] [place] [address] Surgeon Orthopedic Surgery 03/27/17 Jacky Murry MD [address] [place] [address] [address] [place] [address] Ophthalmology 03/27/17 Puma Mckenzie MD [address] [facility] [address] [place] [address] Surgeon Orthopedic Surgery 07/11/19 Neha Jackson, PT Physical Therapist Physical Therapy 12/01/21 documented as of this encounter
--- OUTSIDE RECORDS SUMMARY | 2024-06-18 18:55 | XMS_ITS | Encounter Summary ---
Author Organization [facility] Medical Group Address [address] [facility] [address] [place] [address] Care Team Providers Care Elevator Repairer Helper Name Role Phone Pepper Morgan MD Primary Care Provider + [phone] Hank Garibay MD Unavailable [phone] Jacky Murry MD Unavailable [phone] Puma Mckenzie MD Unavailable [phone] Neha Jackson PT Unavailable Unavailable Encounter Details Date Type Department Care Team (Late st Contact Info) Description 06/21/2022 Telephone [facility] [address] [place] [address] Pepper Morgan MD [address] [place] [address] Social History Tobacco Use Types Packs/Day Years [...] on file Legal Sex Female 4:33 AM DAIRY CHEMIST Gender Identity Not on file Sexual Orientation Not on file Occupation Industry Job Start Date Job End Date retired Not on file Not on file Not on file documented as of this encounter Miscellaneous Notes * Telephone Encounter - Eri Owens - 06/21/2022 4:23 PM CST [facility] REF#[id number] Needs to clarify the directions for Pramipexole 0.125 mg Spironolactone 25 mg Furosemide 40 mg Y CHEMIST documented in this encounter Plan of [...] on filedocumented in this encounter Care Teams Elevator Repairer Helper Relationship Specialty Start Date End Date Pepper Morgan MD PCP - General 09/16/16 Hank Garibay MD [address] [place] [address] [address] [place] [address] Surgeon Orthopedic Surgery 03/27/17 Jacky Murry MD [address] [place] [address] [address] [place] [address] Ophthalmology 03/27/17 uPma Mckenzie MD 4 [facility] [address] [place] [address] Surgeon Orthopedic Surgery 07/11/19 Neha Jackson, PT Physical Therapist Physical Therapy 12/01/21 documented as of this encounter
--- OUTSIDE RECORDS SUMMARY | 2024-06-18 18:55 | XMS_ITS | Encounter Summary ---
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, bilateral legs (HCC) Procedures [facility] Stalin Matt MD [address] [place] [address] Phone: tel: fax: [address] [phone] Referral ID Status Reason Start Date Expiration Date Visits Re quested Visits Authorized [id number] Closed 04/18/2022 05/18/2023 1 1 AGE REINSPECTOR Reason for Visit * Diagnostic Imaging (Routine) - Closed Specialty Diagnoses / Procedures Referred By Olga t Referred To Contact Diagnoses 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, bilateral legs (HCC) Procedures US JONATHAN Stalin Matt MD [address] [facility] KRISHNAN [address] [place] [address] Phone: tel: fax: [address] [phone] Referral ID Status Reason Start Date Expiration Date Visits Re quested Visits Authorized [id number] Closed 04/18/2022 05/18/2023 1 1 Encounter Details Date Type Department Care Team (Latest Contact Info) Description 07/19/2022 8:16 AM PACKAGE REINSPECTOR - 07/19/2022 11:59 PM PACKAGE REINSPECTOR Hospital Encounter [facility] [address] [place] [address] 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, bilateral legs (HCC) Discharge Disposition: Discharge to home or [...] on file Legal Sex Female 4:33 AM PACKAGE REINSPECTOR Gender Identity Not on file Sexual Orientation [...] as needed for seizures 60 tablet 5 3 09/15/19 23 clopidogreL (PLAVIX) 75 mg tablet Take 1 tablet (75 mg total) by mouth daily 90 tablet 3 2 02/08/20 23 felodipine (PLENDIL) 5 mg 24 hr tabletIndications:B enign hypertension Take 1 tablet (5 mg total) by mouth daily 90 tablet 1 3 09/10/19 23 furosemide (LASIX) 40 mg tabletIndications:B enign hypertension Take 1 tablet (40 mg total) by mouth 2 (two) times a day as needed (Leg swelling from heart issue) 180 tablet 1 3 07/27/19 23 metOLazone (ZAROXOLYN) 2.5 mg tablet Take 1 tablet (2.5 mg total) by mouth daily 90 tablet 3 2 07/27/[address] (PROTONIX) 20 mg EC [...] are not having problem 270 tablet 1 3 09/14/19 23 propranoloL (INDERAL) 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:H ereditary essential tremor Take 1 tablet (20 mg total) by mouth 2 (two) times a day as needed (Tremor) 180 tablet 1 3 09/10/19 23 rivaroxaban (XARELTO) 20 mg tablet Take 1 tablet (20 mg total) by mouth daily 90 tablet 1 3 12/09/19 23 spironolactone (Aldactone) 25 mg tabletIndications:B enign hypertension Take 0.5-1 tablets (12.5-25 mg total) by mouth daily Take 1/2 tablet daily 90 tablet 1 3 07/25/19 23 documented as of this encounter Discharge Disposition Disposition Code Departure Means Destination Discharge to home or self care documented in this encounter Miscellaneous Notes * Result Encounter Note - Suyapa Sher MA - 07/19/2022 8:30 AM CST Message Received: Yesterday Stalin Matt MD P [facility] Clinical Pool essentially unchanged or slightly better than previous. 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 : 1935 (86y 7m) ??Gender: F Study Date: 07/19/2022 8:35:00 AM Sign Poster: Order Provider: STALIN MATT Quality: Adequate Ref.Provider: STALIN MATT Procedures: Arterial Report: A bilateral extremities ankle/brachial index was performed. Indications: Leg Pain. Conclusions: 1. Kypz-ay-cqpydvxq arterial insufficiency at rest in the right [...] March 2022. Biphasic waveform at the ankle. Findings: Measurements: RightValueLeftValue Electronically Signed By: Stalin Matt MD 2022-07-19 09:01:31 PACKAGE REINSPECTOR Procedure Note Stalin Matt MD - 07/19/[address] [place] [address] Ankle Brachial Index Report Patient Name: TESS KOOPatient ID: [id number] : 1935 (86y 7m) Gender: FStudy Date: 07/19/2022 8:35:00 AM Order Provider: STALIN MATTQuality: Adequate Ref.Provider: STALIN MATT Procedures: Arterial Report: A bilateral extremities ankle/brachial index wasperformed. Indications: Leg Pain. Conclusions: 1. Ogar-rl-qcpcpuap arterial insufficiency at rest in the right lowerextremity with ankle-brachial index 0.71 which is slightly improved compared to priorvalue of 0.59 in March 2022. Monophasic waveform at the ankle. 2. Mild arterial insufficiency at rest in the left lower extremity withankle- brachial index 0.87. This is slightly improvement compared to prior value of 0.82in March 2022. Biphasic waveform at the ankle. Findings: Measurements: RightValueLeftValue Electronically Signed By: Stalin Matt MD 2022-07-19 09:01:31 PACKAGE REINSPECTOR us Stalin Matt MD IM US PROCEDURES Final Result documented in this encounter Visit Diagnoses Diagnosis 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, bilateral legs (HCC) documented in this encounter Care Teams Paper Control Clerk Relationship Specialty Start Date End Date Pepper Morgan MD PCP - General 09/16/16 Hank Garibay MD [address] WARNER Sheridan [facility] [address] [place] [address] Surgeon Orthopedic Surgery 03/27/17 Jacky Murry MD [address] WARNER Sheridan [facility] [address] [place] [address] Ophthalmology 03/27/17 Puma Mckenzie MD [address] WARNER Sheridan [facility] [address] [place] [address] Surgeon Orthopedic Surgery 07/11/19 Neha Jackson, PT Physical Therapist Physical Therapy 12/01/21 documented as of this encounter
--- OUTSIDE RECORDS SUMMARY | 2024-06-18 18:55 | XMS_ITS | Encounter Summary ---
Author Organization [facility] Address [address] [place] [address] Care Team Providers Care Contract Negotiation Specialist Name Role Phone Pepper Morgan MD Primary Care Provider + [phone] Hank Garibay MD Unavailable [phone] Jacky Murry MD Unavailable [phone] Puma Mckenzie MD Unavailable [phone] Neha Jackson PT Unavailable Unavailable Encounter Details Date Type Department Care Team (Late st Contact Info) Description 05/26/2022 8:50 AM MEDICAL IMAGING TECHNICIAN Lab [address] [address] Atherosclerosis of [place] arteries of extremities with intermittent claudication, bilateral legs (HCC); Edema, unspecified type Social History Tobacco Use Types Packs/Day Years Used Date Smoking Tobacco: Former Cigarettes 30 1 952 - 1982 Smokeless Tobacco: [...] file Legal Sex Female 4:33 AM MEDICAL IMAGING TECHNICIAN Gender Identity Not on file Sexual [...] Priority Date/Time Associated Diagnosis Comments EGFR Routine 05/26/2022 8:55 AM MEDICAL IMAGING TECHNICIAN Atherosclerosis of [place] arteries of extremities with intermittent claudication, bilateral legs (HCC) PRO B-TYPE NATRIURETIC PEPTIDE Routine 05/26/2022 8:55 AM MEDICAL IMAGING TECHNICIAN Atherosclerosis of [place] arteries of extremities with intermittent claudication, bilateral legs (HCC) Edema, unspecified type BASIC METABOLIC PANEL Routine 05/26/2022 8:55 AM MEDICAL IMAGING TECHNICIAN Atherosclerosis of [place] arteries of extremities with intermittent claudication, bilateral legs (HCC) documented in this encounter Results * eGFR (05/26/2022 8:55 AM MEDICAL IMAGING TECHNICIAN) [facility] eGFR 81 mL/min/1. 73 m2 [facility] ([place]) Comment: [...] interpretive data was last reviewed 2021. Blood 05/26/2022 8:55 AM MEDICAL IMAGING TECHNICIAN 05/26/2022 9:17 AM MEDICAL IMAGING TECHNICIAN Stalin Arauz MD LAB BLOOD ORDERABLES Final Resu lt [facility] ([place]) [address] [facility] Department [place] [address] * (ABNORMAL) Pro B-type natriuretic peptide (05/26/2022 8:55 AM MEDICAL IMAGING TECHNICIAN) NT-proBNP 2,050(H) <=450 pg/mL [facility] ([place]) Comment: Interpretive Comments: A. Dyspnea in Acute [...] Interpretive Data Last Revised Date: 2018. Blood 05/26/2022 8:55 AM MEDICAL IMAGING TECHNICIAN 05/26/2022 9:17 AM MEDICAL IMAGING TECHNICIAN us Stalin Arauz MD LAB BLOOD ORDERABLES Final Resu lt [facility] ([place]) 1 [facility] Department [place] [address] * (ABNORMAL) Basic metabolic panel (05/26/2022 8:55 AM MEDICAL IMAGING TECHNICIAN) Sodium 131(L) 135 - 145 mmol/L [facility] ([place]) Potassium, pl 3.7 3.3 - 4.9 mmol/L [facility] ([place]) Chloride 92(L) 97 - 110 mmol/L [facility] ([place]) CO2 33(H) 22 - 32 mmol/L [facility] ([place]) Anion gap 6 2 - 15 mmol/L [facility] ([place]) BUN 15 8 - 25 mg/dL [facility] ([place]) Creatinine 0.73 0.60 - 1.10 mg/dL [facility] ([place]) Glucose 85 70 - 199 mg/dL [facility] ([place]) Comment: Interpretive Data [...] classification and Diagnosis of Diabetes Diabetes Care 2017;40 (Suppl. 1):S11. Current interpretive data was last revised 2017. Calcium 9.3 8.5 - 10.3 mg/dL [facility] ([place]) Blood 05/26/2022 8:55 AM MEDICAL IMAGING TECHNICIAN 05/26/2022 9:17 AM MEDICAL IMAGING TECHNICIAN us Stalin Arauz MD LAB BLOOD ORDERABLES Final Resu lt [facility] ([place]) 1 [facility] Department [place] [address] documented in this encounter Visit Diagnoses Diagnosis Atherosclerosis of [place] arteries of extremities with intermittent claudication, bilateral legs (HCC) Edema, unspecified type documented in this encounter Care Teams Contract Negotiation Specialist Relationship Specialty Start Date End Date Pepper Morgan MD PCP - General 09/16/16 Hank Garibay MD [address] [place] [address] DR WARNER Sheridan [facility] [address] [place] [address] Surgeon Orthopedic Surgery 03/27/17 Jacky Murry MD [address] [place] [address] DR WARNER Sheridan [facility] [address] [place] [address] Ophthalmology 03/27/17 Puma Mckenzie MD [address] [facility] [address] HYLTON B [facility] [address] [place] [address] Surgeon Orthopedic Surgery 07/11/19 Neha Jackson, PT Physical Therapist Physical Therapy 12/01/21 documented as of this encounter
--- OUTSIDE RECORDS SUMMARY | 2024-06-18 18:55 | XMS_ITS | Encounter Summary ---
Author Organization [facility] Address [address] [place] [address] Care Team Providers Care Drawer Liner Name Role Phone Pepper Morgan MD Primary Care Provider + [phone] Hank Garibay MD Unavailable [phone] Jacky Murry MD Unavailable [phone] Puma Mckenzie MD Unavailable [phone] Neha Jackson PT Unavailable Unavailable Encounter Details Date Type Department Care Team (Late st Contact Info) Description 05/10/2022 Orders Only [place] Novelty Twister Tender at [address] [place] [address] Stalin Arauz MD [address] [place] [address] [address] [place] [address] Atherosclerosis of [place] arteries of extremities with intermittent claudication, bilateral legs (HCC) (Primary Dx) Social History Tobacco Use [...] on file Legal Sex Female 4:33 AM COMMERCIAL CENSUS TAKER Gender Identity Not on file Sexual Orientation [...] encounter Results * (ABNORMAL) Basic metabolic panel (05/26/2022 8:55 AM COMMERCIAL CENSUS TAKER) Sodium 131(L) 135 - 145 mmol/L [facility] ([place]) Potassium, pl 3.7 3.3 - 4.9 mmol/L [facility] ([place]) Chloride 92(L) 97 - 110 mmol/L [facility] ([place]) CO2 33(H) 22 - 32 mmol/L [facility] ([place]) Anion gap 6 2 - 15 mmol/L [facility] ([place]) BUN 15 8 - 25 mg/dL [facility] ([place]) Creatinine 0.73 0.60 - 1.10 mg/dL [facility] ([place]) Glucose 85 70 - 199 mg/dL [facility] ([place]) [...] 2017. Calcium 9.3 8.5 - 10.3 mg/dL [facility] ([place]) Blood 05/26/2022 8:55 AM COMMERCIAL CENSUS TAKER 05/26/2022 9:17 AM COMMERCIAL CENSUS TAKER us Stalin Arauz MD LAB BLOOD ORDERABLES Final Resu lt [facility] ([place]) 1 [facility] Department [place] [address] documented in this encounter Visit Diagnoses Diagnosis Atherosclerosis of enterprise arteries of extremities with intermittent claudication, bilateral legs (HCC)- Primary documented in this encounter Care Teams Drawer Liner Relationship Specialty Start Date End Date Pepper Morgan MD PCP - General 09/16/16 Hank Garibay MD [address] [facility] [address] WARNER [address] [place] [address] Surgeon Orthopedic Surgery 03/27/17 Jacky Murry MD [address] [facility] [address] WARNER Sheridan [facility] [address] [place] [address] Ophthalmology 03/27/17 Puma Mckenzie MD [address] [facility] [address] WARNER [address] [place] [address] Surgeon Orthopedic Surgery 07/11/19 Neha Jackson, PT Physical Therapist Physical Therapy 12/01/21 documented as of this encounter
--- OUTSIDE RECORDS SUMMARY | 2024-06-18 18:55 | XMS_ITS | Encounter Summary ---
Author Organization [facility] Address [address] [place] [address] Care Team Providers Care Remelt Operator Name Role Phone Pepper Morgan MD Primary Care Provider + [phone] Hank Garibay MD Unavailable [phone] Jacky Murry MD Unavailable [phone] Puma Mckenzie MD Unavailable [phone] Neha Jackson PT Unavailable Unavailable Encounter Details Date Type Department Care Team (Late st Contact Info) Description 05/31/2022 Telephone [place] Policy Service Coordinator at [address] [place] [phone] Malena Gage Social History Tobacco Use [...] on file Legal Sex Female 4:33 AM EDUCATION GENERAL MANAGER Gender Identity Not on file Sexual Orientation Not on file Occupation Industry Job Start Date Job End Date retired Not on file Not on file Not on file documented as of this encounter Miscellaneous Notes * Telephone Encounter - Malena Gage - 06/01/2022 10:10 AM CST Called pt about Lasix dosage ATION GENERAL MANAGER documented in this encounter Plan of Treatment [...] on filedocumented in this encounter Care Teams Remelt Operator Relationship Specialty Start Date End Date Pepper Morgan MD PCP - General 09/16/16 Hank Garibay MD [address] [facility] [address] WARNER KR[address]NAN [address] [place] [address] Surgeon Orthopedic Surgery 03/27/17 Jacky Murry MD [address] [facility] [address] WARNER [address] [place] [address] Ophthalmology 03/27/17 Puma Mckenzie MD [address] [facility] [address] WARNER [address] [place] [address] Surgeon Orthopedic Surgery 07/11/19 Neha Jackson PT Physical Therapist Physical Therapy 12/01/21 documented as of this encounter
--- OUTSIDE RECORDS SUMMARY | 2024-06-18 18:55 | XMS_ITS | Encounter Summary ---
Author Organization [facility] Address [address] [facility] [address] [place] [address] Care Team Providers Care Order Management Specialist Name Role Phone Pepper Morgan MD Primary Care Provider + [phone] Hank Garibay MD Unavailable [phone] Jacky Murry MD Unavailable [phone] Puma Mckenzie MD Unavailable [phone] Neha Jackson PT Unavailable Unavailable Encounter Details Date Type Department Care Team (Late st Contact Info) Description 06/09/2022 Telephone [facility] [address] [place] [phone] Michelle Torres LPN Social History Tobacco Use Types Packs/Day Years [...] on file 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ORATORY ANIMAL CARETAKER Gender Identity Not on file Sexual Orientation Not on file Occupation Industry Job Start Date Job End Date retired Not on file Not on file Not on file documented as of this encounter Miscellaneous Notes * Telephone Encounter - Michelle Torres LPN - 06/09/2022 8:08 AM CST Spoke to pt informing below KMS result message Pt voiced understanding and has no further questions at this time. RATORY ANIMAL CARETAKER * Telephone Encounter - Michelle Torres LPN - 06/09/2022 8:05 AM CST ----- Message from Pepper Morgan MD sent at 06/08/2022 8:08 PM LABORATORY ANIMAL CARETAKER ----- I did send her results through [employer], contact her to make sure that she got those Good news the x-ray looks good --no broken bones, --the pain from soft tissue injury from the fall should slowly resolve over the next [address] Morgan RATORY ANIMAL CARETAKER documented in this encounter Plan of Treatment [...] on filedocumented in this encounter Care Teams Order Management Specialist Relationship Specialty Start Date End Date Pepper Morgan MD PCP - General 09/16/16 Hank Garibay MD [address] [facility] [address] WARNER Sher[place] [facility] [address] [place] [address] Surgeon Orthopedic Surgery 03/27/17 Jacky Murry MD [address] [facility] [address] WARNER Sheridan [facility] [address] [place] [address] Ophthalmology 03/27/17 Puma Mckenzie MD [address] [facility] [address] WARNER Sheridan [facility] [address] [place] [address] Surgeon Orthopedic Surgery 07/11/19 Neha Jackson, KEVIN Physical Therapist Physical Therapy 12/01/21 documented as of this encounter
--- OUTSIDE RECORDS SUMMARY | 2024-06-18 18:55 | XMS_ITS | Encounter Summary ---
Author Organization [facility] Address [address] [place] [address] Care Team Providers Care Machinist Tool And Die Name Role Phone Pepper Morgan MD Primary Care Provider + [phone] Hank Garibay MD Unavailable [phone] Jacky Murry MD Unavailable [phone] Puma Mckenzie MD Unavailable [phone] Neha Jackson PT Unavailable Unavailable Encounter Details Date Type Department Care Team (Late st Contact Info) Description 05/30/2022 Telephone [place] Armhole Raiser Lockstitch at [address] [place] [phone] Malena Gage Social History Tobacco Use [...] on file Legal Sex Female 4:33 AM HEARING DOG TRAINER Gender Identity Not on file Sexual Orientation Not on file Occupation Industry Job Start Date Job End Date retired Not on file Not on file Not on file documented as of this encounter Miscellaneous Notes * Telephone Encounter - Malena Gage - 05/30/2022 8:47 AM CST Pt called said that she is doing fine with raising her water pill, she lost 3 pounds of the 4 she gained. She also stated that she has been coughing a lot and now has chest tightness and took some mucinex and didn't know if she should of taken it. ING DOG TRAINER ING DOG TRAINER documented in this encounter Plan of [...] on filedocumented in this encounter Care Teams Machinist Tool And Die Relationship Specialty Start Date End Date Pepper Morgan MD PCP - General 09/16/16 Hank Garibay MD [address] [place] [address] DR WARNER Sheridan [facility] [address] [place] [address] Surgeon Orthopedic Surgery 03/27/17 Jacky Murry MD [address] [place] [address] DR WARNER Sheridan [facility] [address] [place] [address] Ophthalmology 03/27/17 Puma Mckenzie MD [address] [place] [address] DR WARNER Sheridan [facility] [address] [place] [address] Surgeon Orthopedic Surgery 07/11/19 Neha Jackson, PT Physical Therapist Physical Therapy 12/01/21 documented as of this encounter
--- OUTSIDE RECORDS SUMMARY | 2024-06-18 18:55 | XMS_ITS | Encounter Summary ---
Author Organization [facility] Address [address] [place] [address] Care Team Providers Care Assembly Lead Person Name Role Phone Pepper Morgan MD Primary Care Provider + [phone] Hank Garibay MD Unavailable [phone] Jacky Murry MD Unavailable [phone] Puma Mckenzie MD Unavailable [phone] Neha Jackson PT Unavailable Unavailable Encounter Details Date Type Department Care Team (Late st Contact Info) Description 05/19/2022 Orders Only [place] Special Effects Designer at [address] [place] [address] Stalin Arauz MD [address] [place] [address] [address] [place] [address] Atherosclerosis of [place] arteries of extremities with intermittent claudication, bilateral legs (HCC) (Primary Dx); Edema, unspecified type Social History Tobacco Use [...] on file Legal Sex Female 4:33 AM VIDEO SOFTWARE ENGINEER Gender Identity Not on file Sexual [...] Results * (ABNORMAL) Pro B-type natriuretic peptide (05/26/2022 8:55 AM VIDEO SOFTWARE ENGINEER) NT-proBNP 2,050(H) <=450 pg/mL [facility] ([place]) Comment: Interpretive [...] Revised Date: 2018. Blood 05/26/2022 8:55 AM VIDEO SOFTWARE ENGINEER 05/26/2022 9:17 AM VIDEO SOFTWARE ENGINEER us Stalin Arauz MD LAB BLOOD ORDERABLES Final Resu lt [facility] ([place]) 1 [facility] Department [place] [address] documented in this encounter Visit Diagnoses Diagnosis Atherosclerosis of inaja arteries of extremities with intermittent claudication, bilateral legs (HCC)- Primary Edema, unspecified type documented in this encounter Care Teams Assembly Lead Person Relationship Specialty Start Date End Date Pepper Morgan MD PCP - General 09/16/16 Hank Garibay MD [address] [place] [address] DR HYLTON B [facility] [address] [place] [address] Surgeon Orthopedic Surgery 03/27/17 Jacky Murry MD [address] [facility] [address] WARNER Sheridan [facility] [address] [place] [address] Ophthalmology 03/27/17 Puma Mckenzie MD [address] [facility] [address] WARNER Sher[place] [facility] [address] [place] [address] Surgeon Orthopedic Surgery 07/11/19 Neha Jackson, PT Physical Therapist Physical Therapy 12/01/21 documented as of this encounter
--- OUTSIDE RECORDS SUMMARY | 2024-06-18 18:55 | XMS_ITS | Encounter Summary ---
Author Organization [facility] Address [address] [place] [address] Care Team Providers Care Design Engineer Agricultural Equipment Name Role Phone Pepper Morgan MD Primary Care Provider + [phone] Hank Garibay MD Unavailable [phone] Jacky Murry MD Unavailable [phone] Puma Mckenzie MD Unavailable [phone] Neha Jackson PT Unavailable Unavailable Encounter Details Date Type Department Care Team (Late st Contact Info) Description 05/30/2022 Orders Only Tulsita [employer]er at [address] [place] [id number] Malena Gage Chest tightness (Primary Dx) Social History Tobacco Use Types [...] file Legal Sex Female 4:33 AM SECURITY THREAT ANALYST Gender Identity Not on file Sexual Orientation Not on file Occupation Industry Job Start Date Job End Date retired Not on file Not on file Not on file documented as of this encounter Progress Notes * Malena Gage - 05/30/2022 1:18 PM CST Pt called about chest tightness and coughing RITY THREAT ANALYST documented in this encounter Plan of Treatment [...] as of this encounter Visit Diagnoses Diagnosis Chest tightness- Primary Other chest pain documented in this encounter Care Teams Design Engineer Agricultural Equipment Relationship Specialty Start Date End Date Pepper Morgan MD PCP - General 09/16/16 Hank Garibay MD [address] [place] [address] Surgeon Orthopedic Surgery 03/27/17 Jacky Murry MD [address] [facility] [place] [address] Ophthalmology 03/27/17 Puma Mckenzie MD [address] [place] [address] [address] [place] [address] Surgeon Orthopedic Surgery 07/11/19 Neha Jackson, PT Physical Therapist Physical Therapy 12/01/21 documented as of this encounter
--- OUTSIDE RECORDS SUMMARY | 2024-06-18 18:56 | XMS_ITS | Encounter Summary ---
Author Organization [facility] Address [address] [place] [address] Care Team Providers Care Franchise Specialist Name Role Phone Pepper Morgan MD Primary Care Provider + [phone] Hank Garibay MD Unavailable [phone] Jacky Murry MD Unavailable [phone] Puma Mckenzie MD Unavailable [phone] Neha Jackson PT Unavailable Unavailable Encounter Details Date Type Department Care Team (Latest Contact Info) Description 02/18/2022 7:19 AM CDT - 02/18/2022 1:48 PM CDT Hospital Encounter [facility] Cardiac Catheterization [address] [place] [address] Stalin Arauz MD [address] [place] [id number] Peripheral arterial disease (CMS/HCC) (HCC) Discharge Disposition: Discharge to home [...] on file 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 Gender Identity Not on file Sexual Orientation Not on file Occupation Industry Job Start Date Job End Date retired Not on file Not on file Not on file documented as of this encounter Last Filed Vital Signs Vital Sign Reading Time Taken Comments Blood Pressure 139/65 02/18/2022 1:10 PM CDT Pulse 64 02/18/2022 1:10 PM CDT Temperature 36.4 ??C (97.6 ??F) 02/18/2022 8:05 AM CD T Respiratory Rate 18 02/18/2022 1:10 PM CDT Oxygen Saturation 96% 02/18/2022 1:10 PM CDT Inhaled Oxygen Concentration - - Weight 86.2 kg (190 lb) 02/18/2022 8:05 AM CDT Height 152.4 cm (5') 02/18/2022 8:05 AM CDT Body Mass Index 37.11 02/18/2022 8:05 AM CDT documented in this encounter Discharge Diagnoses Diagnosis Unspecified atherosclerosis of [place] arteries of extremities, bilateral legs (HCC) - UNSPECIFIED ATHEROSCLEROSIS OF [place] ARTERIES OF EXTREMITIES, BILATERAL LEGS 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) - CHRONIC TOTAL OCCLUSION OF ARTERY OF THE EXTREMITIES Chronic total occlusion of artery of the extremities Paroxysmal atrial fibrillation (CMS/HCC) ([facility]) - PAROXYSMAL ATRIAL FIBRILLATION Atrial fibrillation Hypertensive heart disease with heart failure (CMS/HCC) ([facility]) - HYPERTENSIVE HEART DISEASE WITH HEART FAILURE Unspecified hypertensive heart disease with heart failure Heart failure, unspecified (CMS/HCC) ([facility]) - HEART FAILURE, UNSPECIFIED Heart failure, unspecified Restless legs syndrome - RESTLESS LEGS SYNDROME Restless legs syndrome (RLS) Obesity, unspecified - OBESITY, UNSPECIFIED Gastro-esophageal reflux disease without esophagitis - GASTRO-ESOPHAGEAL REFLUX DISEASE WITHOUT ESOPHAGITIS Lymphedema, not elsewhere classified - LYMPHEDEMA, NOT ELSEWHERE CLASSIFIED Personal history of nicotine dependence - PERSONAL HISTORY OF NICOTINE DEPENDENCE group home (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) 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 Long-term (current) use of anticoagulants Other intermediate accountant (current) drug therapy - OTHER CUSTODIAL (CURRENT) DRUG THERAPY Personal history of malignant melanoma of skin - PERSONAL HISTORY OF MALIGNANT MELANOMA OF SKIN Personal history of other venous thrombosis and embolism - PERSONAL HISTORY OF OTHER VENOUS THROMBOSIS AND EMBOLISM Allergy status to sulfonamides - ALLERGY STATUS TO SULFONAMIDES Allergy status to other drugs, medicaments and biological substances - ALLERGY STATUS TO OTHER DRUGS, MEDICAMENTS AND BIOLOGICAL SUBSTANCES Presence of artificial hip joint, bilateral - PRESENCE OF ARTIFICIAL HIP JOINT, BILATERAL Presence of artificial knee joint, bilateral - PRESENCE OF ARTIFICIAL KNEE JOINT, BILATERAL Atherosclerosis of aorta (HCC) - ATHEROSCLEROSIS OF AORTA Atherosclerosis of aorta Atherosclerosis of renal artery (HCC) - ATHEROSCLEROSIS OF RENAL ARTERY Atherosclerosis of renal artery documented in this encounter Discharge Instructions * Discharge Instructions* Suze Nogueira RN - 02/18/2022 9:33 AM CDT Instructions for going home after your Peripheral Angiography Care for the Catheter Insertion Site Your procedure may be performed in the femoral artery in the groin (the area at the top of your thigh) or in the radial artery in your arm. When you go home, there will be a bandage over the catheterinsertion site. The morning after your procedure, you may take the dressing off. The easiest way to do this is whenyou are showering, get the tape and dressing wet and remove it. After the bandage is removed, cover the area with a small adhesive bandage. It is normal for the catheter insertion site to be black and blue for a couple of days. There may also be a small lump (about the size of a pea) at the site. Wash the catheter insertion site at least once daily with soap and water. Place soapy water on yourhand or washcloth and gently wash the insertion site; do not rub. Keep the area clean and dry when you are not showering. Do not use creams, lotions, or ointment on the wound site. Wear loose clothes and loose underwear. Do not take a bath, tub soak, go in a Jacuzzi, or swim in a pool or carpenter for one week after the procedure. Notify your physician if you experience (numbness in your leg or arm; severe chills or fever of 100.5 degrees F; redness, swelling, draining or a foul odor from the procedure or IV site; pain that will not go away) For femoral cath Do not strain during bowel movements for the first 3 to 4 days after the procedure to prevent bleeding from the catheter insertion site. Avoid heavy lifting (more than 10 pounds) and pushing or pulling heavy objects for the first 5 to 7days after the procedure. Do not participate in strenuous activities for 5 days after the procedure. This includes most sports - jogging, golfing, play tennis, and bowling. You may climb stairs if needed, but walk up and down the stairs more slowly than usual. Gradually increase your activities until you reach your normal activity level within one week afterthe procedure. Additional instructions: Be sure to drink eight to ten glasses of clear fluids (water is preferred) to flush the contrast material from your system. You may resume driving 48 hours after the procedure. Do not drink alcoholic beverages for 24 hours post procedure. Ask your doctor when it is safe to return to work and to resume sexual activity. It is important for you to be committed to leading a heart-healthy lifestyle. Your health care teamcan help you achieve your goals, but it is up to you to take your medications as prescribed, make dietary changes, quit smoking, exercise regularly, keep your follow-up appointments and be an active member of the treatment team. Medications Review your medications with your doctor before you go home. Depending on the results of your procedure, your doctor may prescribe new medications. If you have diabetes, your doctor may adjust your diabetes medications for one to two days after your procedure. Follow up Follow up with your Primary Care Physician in 2-3 weeks and Hand Driller in 4-6 weeks. * Appointments* Suze Nogueira RN - 02/18/2022 9:[address] Arauz's office will be calling to schedule a repeat peripheral angiogram (same procedure done today) to do intervention on the other leg. documented in this encounter Medications at Time of Discharge cholecalciferol (VITAMIN D-3) 2000 unit tablet Take 1 tablet (2,000 Units total) by mouth daily albuterol HFA (Proventil HFA) 90 mcg/actuation inhalerIndication s:Cough Inhale 2 puffs every 6 (six) hours as needed for wheezing or shortness of breath 6.7 g 10/14/2021 2 apixaban (ELIQUIS) 5 mg tabletIndications :Atrial fibrillation, unspecified type (HCC) Take 1 tablet (5 mg total) by mouth 2 (two) times a day 60 tablet 11 05/31/2021 2 cetirizine (ZyrTEC) 10 mg tabletIndications :Angioedema, subsequent encounter Take 1 tablet (10 mg total) by mouth nightly 90 tablet 3 09/17/2021 3 clonazePAM (KlonoPIN) 0.5 mg tabletIndications :Restless legs syndrome Take 1 tablet (0.5 mg total) by mouth nightly for 7 days 30 tablet 5 02/04/2022 2 clopidogreL (PLAVIX) 75 mg tablet Take 1 tablet (75 mg total) by mouth daily 30 tablet 11 02/18/2022 2 felodipine (PLENDIL) 5 mg 24 hr tabletIndications :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 Take 1 tablet (5 mg total) by mouth daily 90 tablet 1 01/24/2022 2 furosemide (LASIX) 40 mg tabletIndications :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 Take 1 tablet (40 mg total) by mouth daily 90 tablet 1 01/24/[address] (PROTONIX) 20 mg EC tabletIndications :Chronic GERD Take 1 tablet (20 mg total) by mouth daily With the largest meal 90 tablet 1 01/24/2022 2 polyethylene glycol (MIRALAX) 17 gram packetIndications :constipation Take 1 packet (17 g total) by mouth daily as needed for constipation 4 pramipexole (MIRAPEX) 0.125 mg tabletIndications :Idiopathic Parkinsonism,Rest less Legs Syndrome Take up to 3 tablets daily starting them when you are having tremor developed in the afternoon or evening and taking up to 3 tablets daily. You do not have to take the medicine the morning if you are not having problem 270 tablet 1 01/24/2022 2 propranoloL (INDERAL) 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 :Hereditary essential tremor Take 1 tablet (20 mg total) by mouth 2 (two) times a day as needed (Tremor) 180 tablet 1 01/24/2022 2 spironolactone (Aldactone) 25 mg tabletIndications :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 Take 0.5 tablets (12.5 mg total) by mouth daily Take 1/2 tablet daily 60 tablet 1 01/24/2022 2 documented as of this encounter Ordered Prescriptions Prescription Sig Dispense Quantity Refills Last Filled Start Date End Date clopidogreL (PLAVIX) 75 mg tablet Take 1 tablet (75 mg total) by mouth daily 30 tablet 11 02/18/2022 06/06/2022 documented in this encounter Discharge Disposition Disposition Code Departure Means Destination Discharge to home or self care documented in this encounter H&P Notes * Stalin Arauz MD - 02/18/2022 1:48 PM CDT I have reviewed the H&P, examined the patient, and endorse the findings as written. Plan of Care : Based on the above findings, I consider Tess Benedict to be an acceptable risk for : Procedure(s): PERIPHERAL ANGIOGRAPHY AORTOGRAM ABDOMINAL + BILATERAL LOW EXTRM S&I 93805 ANGIOGRAPHY - UNILATERAL EXTREMITY S&I 20287 CERTIFIED FINANCIAL PLANNER STENT ILIAC, UNILATERAL, FIRST VESSEL 49380 CERTIFIED FINANCIAL PLANNER STENT FEM-POP, UNILATERAL, FIRST VESSEL 67215 I have reviewed the prior History and Physical of Tess Benedict, re-examined her and no change has occurred in her condition. The risks, benefits, and alternatives were discussed with the patient. Stalin Arauz MD Source Note - Stalin Arauz MD - 02/07/2022 12:30 PM CDT Cardiology note Reason for Office Visit: Chief Complaint Patient presents with ??? Peripheral Vascular Disease History of Present Illness: Tess Benedict [...] on imaging due to bilateral knee replacements. Review of Systems Constitutional: Negative for malaise/fatigue, weight gain and weight loss. Cardiovascular: Positive for leg swelling. Negative for [...] status. Histories: Past Medical History: Diagnosis Date ??? Allergic rhinitis ??? Arrhythmia A-fibrillation ??? Arthritis of ankle ??? Basal cell carcinoma of nose 09/2008 ??? CHF (congestive heart failure) (CMS/HCC) ([facility]) ??? Cough ??? DVT (deep venous thrombosis) (CMS/HCC) ([facility]) 1976 upper left arm near elbow--- ??? Fibrocystic [...] gout ??? Lymphedema 12/06/2021 ??? Malignant melanoma (CMS/HCC) (HCC) Malignant melanoma; Comments: [...] HIP RIGHT Right 04/08/2019 ??? HAND SURGERY 1976 arm surgery on the left, they removed all the lymph nodes on that side. ??? HERNIA REPAIR Hernia repair ??? KNEE ARTHROSCOPY 2003 Arthroscopy knee ??? KNEE ARTHROSCOPY Arthroscopy knee [...] ARTHROPLASTY Left 11/01/2021 Dr. Mckenzie, [facility]. Family History Problem Relation Age of Onset ??? Cancer Other Family history of Cancer, unknown; ??? Arthritis Other Family history of Arthritis; ??? Abdominal Aortic Aneurysm Father ??? COPD Father Social History Tobacco Use ??? Smoking status: Former Smoker Packs/day: 2.00 Years: 30.00 Pack years: 60.00 Quit date: 1982 Years since quittin.6 ??? Smokeless tobacco: Never Used Substance and Sexual Activity ??? Drug use: Never ??? Sexual activity: Defer Alcohol Use: Not At Risk ??? Frequency of Alcohol Consumption: Monthly or less ??? Average Number of Drinks: 1 or 2 ??? Frequency of Binge Drinking: Never Allergies: Allergies Allergen Reactions ??? Celecoxib Anaphylaxis ??? Scopolamine Mental status changes Delirium postop after joint replacement due to this medicine ??? Sulfa (Sulfonamide Antibiotics) Anaphylaxis ??? Amlodipine Swelling ??? Lisinopril Swelling ??? Trazodone Swelling Tongue ??? Cymbalta [Duloxetine] Fatigue Sleepiness, tiredness possibly related to 20 mg morning dose of this medicine discontinued 11/30/2020 ??? Sinemet [Carbidopa-Levodopa] Other (See comments) Night hines Medications: Current Outpatient Medications Medication Sig Dispense Refill ??? albuterol HFA (Proventil HFA) 90 mcg/actuation inhaler Inhale 2 puffs every 6 (six) hours as needed for wheezing or shortness of breath 6.7 g 0 ??? apixaban (ELIQUIS) 5 mg tablet Take 1 tablet (5 mg total) by mouth 2 (two) times a day 60 tablet 11 ??? cetirizine (ZyrTEC) 10 mg tablet Take 1 tablet (10 mg total) by mouth nightly 90 tablet 3 ??? cholecalciferol (VITAMIN D-3) 2000 unit tablet Take 2,000 Units by mouth daily ??? clonazePAM (KlonoPIN) 0.5 mg tablet Take 1 tablet (0.5 mg total) by mouth nightly for 7 days 30tablet 5 ??? felodipine (PLENDIL) 5 mg 24 hr tablet Take 1 tablet (5 mg total) by mouth daily 90 tablet 1 ??? furosemide (LASIX) 40 mg tablet Take 1 tablet (40 mg total) by mouth daily 90 tablet 1 ??? pantoprazole DR (PROTONIX) 20 mg EC tablet Take 1 tablet (20 mg total) by mouth daily With the largest meal 90 tablet 1 ??? polyethylene glycol (MIRALAX) 17 gram packet Take 1 packet (17 g total) by mouth daily (Patienttaking differently: Take 17 g by mouth daily as needed) ??? pramipexole (MIRAPEX) 0.125 mg tablet Take up to 3 tablets daily starting them when you are having tremor developed in the afternoon or evening and taking up to 3 tablets daily. You do not have to take the medicine the morning if you are not having problem 270 tablet 1 ??? propranoloL (INDERAL) 20 mg tablet Take 1 tablet (20 mg total) by mouth 2 (two) times a day as needed (Tremor) 180 tablet 1 ??? spironolactone (Aldactone) 25 mg tablet Take 0.5 tablets (12.5 mg total) by mouth daily Take 1/2 tablet daily 60 tablet 1 ??? naloxone (NARCAN) 4 mg/actuation spray,non-aerosol Administer 1 spray into affected nostril(s) as needed for opioid reversal or respiratory depression Call 911. Administer a single spray in one nostril. Repeat every 3 minutes as needed if no or minimal response. (Patient not taking: Reported on02/07/2022) 1 each 0 No current facility-administered medications for this visit. Vitals BP 140/85 (BP Location: Right arm, Patient Position: Sitting) Pulse 66 Resp 16 Ht 152.4 cm (5') Wt 88.5 kg (195 lb) LMP (LMP Unknown) BMI 38.08 kg/m?? Vitals: 02/07/22 1221 BP: 140/85 Pulse: 66 Resp: 16 Wt Readings from Last 3 Encounters: 02/07/22 88.5 kg (195 lb) 01/24/22 85.7 kg (189 lb) 12/16/21 88 kg (194 lb) Body mass index is 38.08 kg/m??. Physical Exam Constitutional: General: She is [...] both pedal pulses are present by Doppler although the posterior tibial stronger On the left, both pedal pulses are present by Doppler but weak. Mild bilateral lower extremity edema. No open wounds Feet are warm Labs: Lab Results Component Value Date INR 1.1 11/01/2021 INR 1.1 07/10/2019 INR 1.1 07/01/2019 Lab Results Component Value Date PT 12.6 11/01/2021 PT 12.0 07/10/2019 PT 12.1 07/01/2019 Lab Results Component Value Date TSH 3.18 11/30/2020 FREET4 1.29 11/30/2020 Lab Results Component Value Date BILIRUBINU Negative 02/07/2017 AST 23 11/08/2021 ALT 16 11/08/2021 ALKPHOS 142 (H) 11/08/2021 ALBUMIN 3.5 11/08/2021 Lab Results Component Value Date SODIUM 133 (L) 12/01/2021 POTASSIUM 4.1 12/01/2021 CHLORIDE 94 (L) 12/01/2021 CO2 33 (H) 12/01/2021 ANIONGAP 9 11/09/2021 CK 114 11/09/2021 GLUCOSEUR Negative 10/25/2021 No results found for: BNP Lab Results Component Value Date SODIUM 133 (L) 12/01/2021 SODIUM 134 (L) 11/12/2021 SODIUM 129 (L) 11/09/2021 POTASSIUM 4.1 12/01/2021 POTASSIUM 4.8 11/12/2021 POTASSIUM 4.3 11/09/2021 CHLORIDE 94 (L) 12/01/2021 CHLORIDE 93 (L) 11/12/2021 CHLORIDE 89 (L) 11/09/2021 CO2 33 (H) 12/01/2021 CO2 31 11/12/2021 CO2 31 11/09/2021 BUNSER 19 12/01/2021 BUNSER 17 11/12/2021 BUNSER 19 11/09/2021 CREATININE 0.72 12/01/2021 CREATININE 0.65 11/12/2021 CREATININE 0.74 11/09/2021 GFRNAA 80 11/09/2021 GFRNAA 69 11/08/2021 GFRNAA 91 11/03/2021 GLUCOSE 83 12/01/2021 CALCIUM 9.1 12/01/2021 CALCIUM 9.5 11/12/2021 CALCIUM 9.3 11/09/2021 ALBUMIN 3.5 11/08/2021 ALBUMIN 3.7 10/25/2021 ALBUMIN 3.7 08/19/2021 PHOS 3.2 02/14/2017 PHOS 3.9 04/29/2014 Lab Results Component Value Date SODIUM 133 (L) 12/01/2021 POTASSIUM 4.1 12/01/2021 CHLORIDE 94 (L) 12/01/2021 CO2 33 (H) 12/01/2021 ANIONGAP 9 11/09/2021 BUNSER 19 12/01/2021 CREATININE 0.72 12/01/2021 GLUCOSE 83 12/01/2021 CALCIUM 9.1 12/01/2021 BILITOT 0.4 11/08/2021 PROT 6.6 11/08/2021 ALBUMIN 3.5 11/08/2021 ALKPHOS 142 (H) 11/08/2021 ALT 16 11/08/2021 AST 23 11/08/2021 Lab Results Component Value Date WBC 9.9 11/12/2021 HGB 11.4 (L) 11/12/2021 HCT 35.8 11/12/2021 LABPLAT 584 (H) 11/12/2021 MPV 9.1 11/12/2021 RBC 4.01 11/08/2021 MCV 86.7 11/12/2021 MCH 27.6 11/12/2021 MCHC 31.8 (L) 11/12/2021 RDWCV 14.7 11/08/2021 RDWSD 46.9 11/08/2021 NRBCABS 0.00 11/08/2021 Lab Results Component Value Date CHOL 191 03/28/2016 TRIG 106 03/28/2016 HDL 46 03/28/2016 NONHDLCHOL 145 03/28/2016 CHOLHDL 4.2 03/28/2016 Testing: Echocardiogram 04/2021 Normal left ventricular systolic [...] is not seen. CTA runoff is recommended. Diagnoses 1. Atypical leg symptoms ? Peripheral artery disease related.pt with occlusion of both SFA and moderate iliac disease . Symptoms suggestive of claudication given improvement with short rest. 2.Paroxysmal Atrial fibrillation , on eliquis 3. 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 S/p bilateral hip and knee replacement. Plan Her presentation is somewhat atypical. I explained to the patient that the symptoms of leg cramps at night as well as restless leg or unlikely to be related to arterial insufficiency. She describes pain in her legs with short distance walking that improves within a few minutes. The left leg seemed to be more symptomatic one. I told her that with her clinical picture, predictability of improvement of symptoms with leg revascularization is not high but she may have significant improvement. We discussed proceeding with intervention on the left lower extremity to see how she does and then we can decide if she needs intervention of the right lower extremity at a later date Given his clinical presentation, peripheral angiography was offered to assess the extent of peripheral vascular disease on possible intervention. The benefits and risks were discussed with the patient. This includes but not limited to risk of bleeding, vascular complications, contrast related issues. Patient understands the risk and willing to proceed. Access right femoral stick . likely need to have benadryl for vomiting post sedation and less fentanyl Diagnoses and all orders for this visit: Paroxysmal atrial fibrillation (CMS/HCC) (HCC) (Primary) Peripheral arterial disease (CMS/HCC) (HCC) - Ambulatory referral to Cardiology 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 Return in about 8 weeks (around 04/04/2022). 02/07/2022 1:25 PM Stalin Arauz MD Cc:Pepper Morgan MD documented in this encounter Procedure Notes * Stalin Arauz MD - 02/18/2022 1:48 PM CDT Procedures Abdominal aortography, bilateral lower extremity angiography, stenting of the left iliac vessels, recanalization angioplasty and stenting of the superficial femoral artery was performed through the right femoral artery without in lab complications Findings Chronic total occlusion of long segment of the superficial femoral arteries bilaterally Three-vessel runoff bilaterally Moderate disease in the iliac vessels worse on the left Ulcerated plaque in the abdominal aorta without significant gradient Intermediate left renal artery stenosis Successful stenting of the left common left external iliac arteries using 9 and 8 mm self expandingstents respectively Successful recanalization of the superficial femoral artery with treatment using 5 mm drug coated balloon and final stenting for suboptimal angiographic results using Zilver stents Angio-Seal to right groin Postprocedure, the left posterior tibial and dorsalis pedis was strongly present by Doppler Plan Aspirin Plavix Schedule intervention on the right leg at a later date Stalin Arauz MD documented in this encounter Nursing Notes * Zuleika Villarreal RN - 02/18/2022 11:11 AM CDT Pt c/o chest pressure located upper chest/lower throat. 01/26, describes the pain as pressure and radiating down her right arm. VSS. Dr. Arauz notified. ECG ordered. Will continue to monitor. documented in this encounter Miscellaneous Notes * Pre-Sedation Documentation - Stalin Arauz MD - 02/18/2022 1:48 PM CDT Sedation Plan ASA 2 - Mild systemic disease Mallampati class: II. Risks, benefits, and alternatives discussed with patient. * Perioperative Nursing Note - Katlyn Harris RN - 02/18/2022 1:26 PM CDT Pt ambulatory to bathroom with slow steady gait, discharge instructions reviewed with patient and patient's daughter, all questions/concerns addressed. * Perioperative Nursing Note - Katlyn Harris RN - 02/18/2022 8:09 AM CDT Procedure explained to patient, no questions/concerns addressed. documented in this encounter Plan of Treatment [...] Procedure Name Priority Date/Time Associated Diagnosis Comments ECG 12-LEAD STAT 02/18/2022 11:09 AM CDT REVENDVAS FEMPOP UN WSTN [id number] Routine 02/18/2022 9:39 AM CDT Peripheral arterial disease (CMS/HCC) (HCC) REVAS ENDOVASILIAC W STNT [id number] Routine 02/18/2022 9:39 AM CDT Peripheral arterial disease (CMS/HCC) (HCC) ANGIOGRAPHY UNILATERAL EXTREMITY S&I 04449 Routine 02/18/2022 9:39 AM CDT Peripheral arterial disease (CMS/HCC) (HCC) AORTOG ABD+JENNIFFER LOW EXTRM Routine 02/18/2022 9:39 AM CDT Peripheral arterial disease (CMS/HCC) (HCC) CARDIAC CATHETERIZATION Routine 02/19/20 9:39 AM CDT Peripheral arterial disease (CMS/HCC) (HCC) documented in this encounter Results * ECG 12 lead (02/18/2022 11:09 AM CDT) 02/18/2022 11:0 9 AM CDT Narrative [facility] - 02/18/2022 1:39 PM CDT Vent Rate: 68 bpm RR Interval: 878 msec TN Interval: 0 msec QRS Duration: 82 msec QT Interval: 423 msec QTC Interval: 440 msec P-R-T [place]: 0 - 79 - 37 degrees ATRIAL FIBRILLATION ABNORMAL RHYTHM ECG NO SIGNIFICANT CHANGE SINCE PREVIOUS TRACING Electronically Signed By: Eric Bashir us Stalin Arauz MD ECG ORDERABLES Final Result [facility] * PERIPHERAL ANGIOGRAPHY, AORTOG ABD+JENNIFFER LOW EXTRM, ANGIOGRAPHY UNILATERAL EXTREMITY S&I 24223, REVAS ENDOVASILIAC W STNT [id number], REVENDVAS FEMPOP UN WSTN [id number] (02/18/2022 9:39 AM CDT) Anatomical Region Laterality Modality X-Ray Angiograph y 02/18/2022 Narrative 02/26/2022 8:44 AM CDT [employer] Job ID: [id number] [employer] Document ID: [id number] Dictated date/time: [id number] PERIPHERAL ANGIOGRAPHY REPORT An 86-year-old with bilateral lower extremity claudication. ??She was referred for angiography and possible intervention. INDICATION FOR PROCEDURE Peripheral arterial disease with claudication. OPERATORS: ??Eric mustafa MD, Stalin Arauz MD PROCEDURES PERFORMED: Abdominal aortography, bilateral lower extremity angiography, stenting of the left common and external iliac arteries, angioplasty and stenting of the left superficial femoral artery and vascular access closure. After obtaining informed consent, patient was brought to the cardiac stucco laborer suite. She was prepped and draped in usual sterile fashion. ??Conscious sedation was administered by the stucco laborer staff under my supervision. ??A total of 4 mg of Versed, 100 mcg of fentanyl and 50 mg of Benadryl were given in divided doses. ??See procedure log for further details. ??Total sedation time 60 minutes. ??A 5-Swazi sheath was inserted in the right femoral artery. ??Ipsilateral lower extremity angiography was performed using sheath injection. ??Pigtail catheter was advanced to the abdominal aorta and used to perform aortography in the AP projection. ??The contralateral iliac vessel was cannulated using crossover catheter, was advanced over a wire to the common femoral artery and later exchanged to 8-Swazi contra sheath, was used to perform intervention as will be detailed below. ??At the end of procedure, the arterial sheath was removed and vascular access was closed using Angio-Seal with good hemostasis. FINDINGS The left renal artery had 60% proximal stenosis. ??The right renal artery was widely patent. ??The abdominal aorta had significant atherosclerotic disease with ulcerated plaque in the mid abdominal aorta. ?? On the right, the common iliac artery was patent. ??The external iliac artery was calcified with 30% stenosis. ??The common femoral artery and profunda were patent. ??The superficial femoral artery was occluded at the ostium with islands of reconstitution of the superficial femoral artery. ?? The above knee popliteal artery had 80% stenosis. ??The rest of the popliteal artery was angiographically normal. ??There was 3 vessel runoff which were continuous to the distal calf. ?? On the left, the common iliac artery had 70% stenosis associated with gradient. ??The external iliac artery had 70% stenosis at the transition to the common femoral artery. ??The superficial femoral artery was occluded proximally and reconstituted distally via collaterals from the profunda. ?? The popliteal artery was angiographically normal. ??There was 3 vessel runoff ??continuous two vessels to the ankle. Intervention on the left lower extremity: ?? I felt that her symptoms on the left are related to combination of iliac and superficial femoral artery disease. ??There was significant pressure dampening after advancing the Contra sheath through the iliac vessels. ??The common iliac artery was stented using 9 x 60 Protege stent post dilated using an 8 mm balloon. ?? There was still residual gradient across the external iliac arteries, and that lesion was stented using 8 x 60 EverFlex stent post dilated using ?? post dilated using 7 mm balloon . I then attempted to cross the area of occlusion in the superficial femoral artery and I was able to get intraluminal position distally. ??Balloon inflation throughout the occluded segment was performed using 5 mm balloon. ??The entire segment was then treated using ??overlapping 5 mm drug coated balloons. ??There was antegrade flow all over. ??There was residual stenosis with flow-limiting dissection in the mid segment of the superficial femoral artery so that area was covered using overlapping 6 x100 and 6 x 120 mm Zilver drug-eluting stents post dilated using a 5 mm balloon with good angiographic results. IMPRESSION 1. 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 2. No significant infrapopliteal disease on either side. 3. Successful stenting of the left common iliac artery using 9 x 60 Protege stent, post dilated using 8 mm balloon. 4. Successful stenting of the left external iliac artery using 8 x 60 EverFlex stent post dilated using 7 mm balloon. 5. Successful recanalization and angioplasty of long occluded segment of the left superficial femoral artery for treatment of the entire segment using 5 mm drug-coated balloons and final stenting of the mid segment of the superficial femoral artery using overlapping 6 mm Zilver self-expanding stents post dilated using a 5 mm balloon. 6. Successful vascular access closure. CARE PLAN Follow her symptoms and ankle-brachial index and consideration for intervention of the right superficial femoral artery at a later date. Stalin Arauz MD Job ID/Internal Job ID: ??[id number] Stalin Arauz MD CV CARDIAC CATH PROCEDURES Farzana l Result documented in this encounter Visit Diagnoses Diagnosis Peripheral arterial disease (HCC)- Primary Unspecified peripheral vascular disease Peripheral arterial disease (HCC) Unspecified peripheral vascular disease Peripheral arterial disease (HCC) Unspecified peripheral vascular disease documented in this encounter Admitting Diagnoses Diagnosis Peripheral arterial disease (HCC) Unspecified peripheral vascular disease documented in this encounter Administered Medications Inactive Administered Medications - up to 3 most recent administrations Medication Order MAR Action Action Date Dose Rate Site acetaminophen (TYLENOL) tablet 650 mg 650 mg, oral, Once, On Mon02/18/22 at 1200, For 1 dose, Pre-Procedure (CV) Given 02/18/2022 11:40 AM CDT 650 mg ALPRAZolam (XANAX) tablet 0.5 mg 0.5 mg, oral, Once, On Mon02/18/22 at 0815, For 1 dose, Pre-Procedure (CV) Given 02/18/2022 7:40 AM CDT 0.5 mg Carrier Fluids for Secondary Infusion - 0.9% Sodium Chloride 30 mL, intravenous, As needed, For priming tubing and/or flushing, Starting on Mon02/18/22 at 0731, Pre-Procedure (CV), 0-250 ml/hr to flush line after IV infusions when no maintenance IV ordered. Infuse 30mL at the same rate as the secondary infusion. Run as primary IV, not intended for KVO.Indications:Peripheral arterial disease (HCC) diphenhydrAMINE (BENADRYL) tab/cap 25 mg 25 mg, oral, Once, On Mon02/18/22 at 0815, For 1 dose, Pre-Procedure (CV) Given 02/18/2022 7:40 AM CDT 25 mg pramipexole (MIRAPEX) tablet 0.125 mg 0.125 mg, oral, Once, On Mon02/18/22 at 1200, For 1 dose, Recovery (CV) Given 02/18/2022 11:40 AM CDT 0.125 mg sodium chloride 0.9% flush 0.5-20 mL 0.5-20 mL, intra-catheter, Every 8 hours scheduled, First dose on Mon02/18/22 at 0815, Pre-Procedure (CV), Flush volume based on line type and size.Indications:Peripheral arterial disease (HCC) Given 02/18/2022 7:59 AM CDT 10 mL sodium chloride 0.9% flush 0.5-20 mL 0.5-20 mL, intra-catheter, As needed, line care, Starting on Mon02/18/22 at 0731, Pre-Procedure (CV), Flush volume based on line type and size. Flush before and after each use.Indications:Peripheral arterial disease (HCC) sodium chloride 0.9% infusion 50 mL/hr, intravenous, Continuous, Starting on Mon02/18/22 at 0815, Pre-Procedure (CV)Indications:Peripheral arterial disease (HCC) New Bag 02/18/2022 8:00 AM CDT 50 mL/hr 50 mL/hr sodium chloride 0.9% infusion 250 mL/hr, intravenous, Continuous, Starting on Mon02/18/22 at 1030, For 4 hours, Recovery (CV) New Bag 02/18/2022 10:58 AM CDT 250 mL/hr 250 mL/hr documented in this encounter Discontinued Medications Medication Sig Discontinue Reason Start Date End Da te naloxone (NARCAN) 4 mg/actuation spray,non-aerosolIndic ations:Chronic pain disorder Administer 1 spray into affected nostril(s) as needed for opioid reversal or respiratory depression Call 911. Administer a single spray in one nostril. Repeat every 3 minutes as needed if no or minimal response. 11/11/2021 02/18/2022 polyethylene glycol (MIRALAX) 17 gram packetIndications:cons tipation Take 1 packet (17 g total) by mouth daily 05/26/2020 02/18/2022 documented as of this encounter Historical Medications * This list may reflect changes made after this encounter. polyethylene glycol (MIRALAX) 17 gram packetIndication s:constipation Take 1 packet (17 g total) by mouth daily as needed for constipation 4 added in this encounter Active and Recently Administered Medications Times are shown in CDT. Scheduled Medication Order 02/16/2022 02/17/2022 02/18/2022 acetaminophen (TYLENOL) tablet 650 mg (COMPLETED) 650 mg, oral, Once, On Mon02/18/22 at 1200, For 1 dose, Pre-Procedure (CV) 1140 (Given - Provid er: Katlyn Harris RN) ALPRAZolam (XANAX) tablet 0.5 mg (COMPLETED) 0.5 mg, oral, Once, On Mon02/18/22 at 0815, For 1 dose, Pre-Procedure (CV) 0740 (Given - Provid er: Katlyn Harris RN) diphenhydrAMINE (BENADRYL) tab/cap 25 mg (COMPLETED) 25 mg, oral, Once, On Mon02/18/22 at 0815, For 1 dose, Pre-Procedure (CV) 0740 (Given - Provid er: Katlyn Harris RN) pramipexole (MIRAPEX) tablet 0.125 mg (COMPLETED) 0.125 mg, oral, Once, On Mon02/18/22 at 1200, For 1 dose, Recovery (CV) 1140 (Given - Provid er: Katlyn Harris RN) sodium chloride 0.9% flush 0.5-20 mL(Linked Group 1) 0.5-20 mL, intra-catheter, Every 8 hours scheduled, First dose on Mon02/18/22 at 0815, Pre-Procedure (CV), Flush volume based on line type and size. 0759 (Given - Provid er: Katlyn Harris RN)0807 (AUG Hold - Provider: Automatic Transfer Provider - Reason: Patient not available)1753 (AUG Unhold - Provider: Automatic Discharge Provider) Continuous Medication Order 02/16/2022 02/17/2022 02/18/2022 sodium chloride 0.9% infusion (CANCELED) 50 mL/hr, intravenous, Continuous, Starting on Mon02/18/22 at 0815, Pre-Procedure (CV) 0800 (New Bag - Prov ider: Katlyn Harris RN)1000 (Stopped - Provider: Katlyn Harris RN) sodium chloride 0.9% infusion 250 mL/hr, intravenous, Continuous, Starting on Mon02/18/22 at 1030, For 4 hours, Recovery (CV) 1058 (New Bag - Prov ider: Katlyn Harris RN)1753 (Due: Stopped) PRN Medication Order 02/16/2022 02/17/2022 02/18/2022 bivalirudin (ANGIOMAX) injection (CANCELED) As needed, Starting on Mon02/18/22 at 0854, Intra-Procedure (CV) 0854 (Given - Provid er: Hai Jacob RN) Carrier Fluids for Secondary Infusion - 0.9% Sodium Chloride(Linked Group 1) 30 mL, intravenous, As needed, For priming tubing and/or flushing, Starting on Mon02/18/22 at 0731, Pre-Procedure (CV), 0-250 ml/hr to flush line after IV infusions when no maintenance IV ordered. Infuse 30mL at the same rate as the secondary infusion. Run as primary IV, not intended for KVO. 0807 (AUG Hold - Pro vider: Automatic Transfer Provider - Reason: Patient not available)1753 (AUG Unhold - Provider: Automatic Discharge Provider) diphenhydrAMINE (BENADRYL) injection (CANCELED) Administer over 2 Minutes, As needed, Starting on Mon02/18/22 at 0843, Intra-Procedure (CV) 0843 (Given - Provid er: Hai Jacob RN) fentaNYL (SUBLIMAZE) preservative free injection (CANCELED) As needed, Starting on Mon02/18/22 at 0842, Intra-Procedure (CV) 0842 (Given - Provid er: Hai Jacob RN)0920 (Given - Provider: Hai Jacob RN) lidocaine PF (XYLOCAINE) 10 mg/mL (1 %) preservative free injection (CANCELED) As needed, Starting on Mon02/18/22 at 0844, Intra-Procedure (CV) 0844 (Given - Provid er: Stalin Arauz MD) midazolam (VERSED) 1 mg/mL preservative free injection (CANCELED) Administer over 2 Minutes, As needed, Starting on Mon02/18/22 at 0843, Intra-Procedure (CV) 0843 (Given - Provid er: Hai Jacob RN)0902 (Given - Provider: Hai Jacob RN) sodium chloride 0.9% flush 0.5-20 mL(Linked Group 1) 0.5-20 mL, intra-catheter, As needed, line care, Starting on Mon02/18/22 at 0731, Pre-Procedure (CV), Flush volume based on line type and size. Flush before and after each use. 0807 (AUG Hold - Pro vider: Automatic Transfer Provider - Reason: Patient not available)1753 (AUG Unhold - Provider: Automatic Discharge Provider) Linked Groups Order Group 1: Saline lock IV (CANCELED) Routine, Once (Routine), On Mon02/18/22 at 0732, For 1 occurrence, Pre-Procedure (CV) And sodium chloride 0.9% flush 0.5-20 mLJump to med 0.5-20 mL, intra-catheter, Every 8 hours scheduled, First dose on Mon02/18/22 at 0815, Pre-Procedure (CV), Flush volume based on line type and size. And sodium chloride 0.9% flush 0.5-20 mLJump to med 0.5-20 mL, intra-catheter, As needed, line care, Starting on Mon02/18/22 at 0731, Pre-Procedure (CV), Flush volume based on line type and size. Flush before and after each use. And Carrier Fluids for Secondary Infusion - 0.9% Sodium ChlorideJump to med 30 mL, intravenous, As needed, For priming tubing and/or flushing, Starting on Mon02/18/22 at 0731, Pre-Procedure (CV), 0-250 ml/hr to flush line after IV infusions when no maintenance IV ordered. Infuse 30mL at the same rate as the secondary infusion. Run as primary IV, not intended for KVO. documented in this encounter Orders Medications Ordered That Alhaji ht Not Have Been Administered Count Last Ordered Date First Ordered Date bivalirudin (ANGIOMAX) injection 02/19/20 Carrier Fluids for Secondary Infusion - 0.9% Sodium Chloride 02/18/2022 diphenhydrAMINE (BENADRYL) injection 07/2021 fentaNYL (SUBLIMAZE) preserv ative free injection 1 02/18/2022 lidocaine PF (XYLOCAINE) 10 mg/mL (1 %) preservative free injection 1 02/18/2022 midazolam (VERSED) 1 mg/mL p reservative free injection 1 02/18/2022 sodium chloride 0.9% flush 0.5-20 mL 1 07/2021 CORE MEASURES Count Last Ordered Date First Ord ered Date REASON FOR NO VTE PROPHYLAXIS AT ADMISSION 1 02/18/2022 documented in this encounter Care Teams Franchise Specialist Relationship Specialty Start Date End Date Pepper Morgan MD PCP - General 09/16/16 Hank Garibay MD [address] [facility] [address] [place] [address] Surgeon Orthopedic Surgery 03/27/17 Jacky Murry MD [address] [facility] [address] [place] [address] Ophthalmology 03/27/17 Puma Mckenzie MD [address] [facility] [address] [place] [address] Surgeon Orthopedic Surgery 07/11/19 Neha Jackson PT Physical Therapist Physical Therapy 12/01/21 documented as of this encounter
--- OUTSIDE RECORDS SUMMARY | 2024-06-18 18:56 | XMS_ITS | Encounter Summary ---
Author Organization [facility] Address [address] [place] [address] Care Team Providers Care Manager Commercial Name Role Phone Pepper Morgan MD Primary Care Provider + [phone] Hank Garibay MD Unavailable [phone] Jacky Murry MD Unavailable [phone] Puma Mckenzie MD Unavailable [phone] Neha Jackson PT Unavailable Unavailable Encounter Details Date Type Department Care Team (Late st Contact Info) Description 01/31/2022 Telephone [employer] at [address] [address] Stalin Arauz MD [address] [place] [address] [address] [place] [address] Social History Tobacco Use Types Packs/Day Years Used Date Smoking Tobacco: Former Cigarettes 2 - 1981 Smokeless Tobacco: Never Alcohol Use [...] file 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 Arauz says schedule withhim in 2 to 3 weeks Referral scanned into media documented in this encounter Plan of Treatment [...] filedocumented in this encounter Care Teams Manager Commercial Relationship Specialty Start Date End Date Pepper Morgan MD PCP - General 09/16/16 Hank Garibay MD [address] [facility] [address] [place] [address] Surgeon Orthopedic Surgery 03/27/17 Jacky Murry MD [address] [facility] [address] [place] [address] Ophthalmology 03/27/17 Puma Mckenzie MD [address] [place] [address] Surgeon Orthopedic Surgery 07/11/19 Neha Jackson, KEVIN Physical Therapist Physical Therapy 12/01/21 documented as of this encounter
--- OUTSIDE RECORDS SUMMARY | 2024-06-18 18:56 | XMS_ITS | Encounter Summary ---
Author Organization [facility] Address [address] [place] [address] Care Team Providers Care Legal Contracts Specialist Name Role Phone Pepper Morgan MD Primary Care Provider + [phone] Hank Garibay MD Unavailable [phone] Jacky Murry MD Unavailable [phone] Puma Mckenzie MD Unavailable [phone] Neha Jackson PT Unavailable Unavailable Reason for Visit * Reason Comments PT Treatment Encounter Details Date Type Department Care Team (Late st Contact Info) Description 12/10/2021 1:45 PM CDT Therapy [facility] [place] [address] [place] [id number] Diana Rowland, BACILIO Lumbar radiculopathy (Primary Dx) Social History Tobacco Use Types [...] more points, staff should administer the PHQ-9) 4 11/16/2021 Comments No Sex and Gender Information Value Date Recorded Sex Assigned at Not on file 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 Gender Identity Not on file Sexual Orientation Not on file Occupation Industry Job Start Date Job End Date retired Not on file Not on file Not on file documented as of this encounter Progress Notes * Diana Rowland PTA - 12/10/2021 1:45 PM CDT PT Daily Treatment Note Tess Benedict 1935 Subjective: Pain: 09/26 low back States she is not taking any pain meds during the day Chief complaint unable to wash left foot States she is scared to cross her leg Objective: See treatment provided Treatment Provided: Gentle stretching IASTM to low back and SIJ--with massage gun Recumbent stepper x 5 min Hip add with ball Hip abd with blue theraband HEP: LTR Lumbar flexion stretch (sitting) PPT Bridging Assessment: Tess is receptive to the current treatment program Patient was able to cross left leg and reach her foot without increase in pain Plan: Continue with current plan of care Start Time: 1340 End Time:1420 Diana Rowland PTA documented in this encounter Plan of Treatment [...] as of this encounter Visit Diagnoses Diagnosis Lumbar radiculopathy- Primary Thoracic or lumbosacral neuritis or radiculitis, unspecified documented in this encounter Care Teams Legal Contracts Specialist Relationship Specialty Start Date End Date Pepper Morgan MD PCP - General 09/16/16 Hank Garibay MD [address] [facility] [address] [place] [address] Surgeon Orthopedic Surgery 03/27/17 Jacky Murry MD [address] [place] [address] [address] [address] Ophthalmology 03/27/17 Puma Mckenzie MD [address] [facility] [address] [address] Surgeon Orthopedic Surgery 07/11/19 Neha Jackson, PT Physical Therapist Physical Therapy 12/01/21 documented as of this encounter
--- OUTSIDE RECORDS SUMMARY | 2024-06-18 18:56 | XMS_ITS | Encounter Summary ---
Author Organization [facility] Address [address] [address] Care Team Providers Care Hearing Therapist Name Role Phone Pepper Morgan MD Primary Care Provider +- [phone] Hank Garibay MD Unavailable [phone] Jacky Murry MD Unavailable [phone] Puma Mckenzie MD Unavailable [phone] Neha Jackson PT Unavailable Unavailable Reason for Referral * Diagnostic Imaging (Routine) - Closed Specialty Diagnoses / Procedures Referred By Contac t Referred To Contact Diagnoses Aftercare following joint replacement surgery, unspecified joint Procedures XR Hip Left 2 or 3 Views Puma Mckenzie MD Phone: tel: [facility] Referral ID Status Reason Start Date Expiration Date Visits Re quested Visits Authorized [id number] Closed 12/16/2021 01/15/2023 1 1 * Diagnostic Imaging (Routine) - Closed Specialty Diagnoses / Procedures Referred By Contac t Referred To Contact Diagnoses History of arthroplasty of left knee Procedures XR Knee Left 3 Views Puma Mckenzie MD Phone: tel: [facility] Referral ID Status Reason Start Date Expiration Date Visits Re quested Visits Authorized [id number] Closed 12/16/2021 01/15/2023 1 1 Reason for Visit * Reason Comments Post-op Encounter Details Date Type Department Care Team (Late st Contact Info) Description 12/16/2021 1:15 PM CDT Office Visit [facility] Orthopedics and Sports Medicine [address] [place] [address] [address] [place] [id number] Puma Mckenzie MD [address] [place] [address] [address] [place] [address] History of arthroplasty of left knee (Primary Dx); Aftercare following joint replacement surgery, unspecified joint Social History Tobacco Use Types Packs/Day Years [...] on file 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 Gender Identity Not on file Sexual Orientation Not on file Occupation Industry Job Start Date Job End Date retired Not on file Not on file Not on file documented as of this encounter Last Filed Vital Signs Vital Sign Reading Time Taken Comments Blood Pressure 107/68 12/16/2021 1:12 PM CDT Pulse 76 12/16/2021 1:12 PM CDT Temperature - - Respiratory Rate - - Oxygen Saturation - - Inhaled Oxygen Concentration - - Weight 88 kg (194 lb) 12/16/2021 1:12 PM CDT Height 152.4 cm (5') 12/16/2021 1:12 PM CDT Body Mass Index 37.89 12/16/2021 1:12 PM CDT documented in this encounter Progress Notes * Puma Mckenzie MD - 12/16/2021 1:15 PM CDT POST-OPERATIVE PROGRESS NOTE History of Present Illness Patient is a 86 y.o. female who presents for a 6 week follow-up s/p left total hip arthroplasty. The patient has no complaints at this time and has been progressing well. ROS Negative except for stated in HPI. Physical Exam Patient is A&Ox3, NAD. Incision is well healed. Good ROM without impingement. No limp or antalgic gait. 2+ distal pulses, cap refill < 2 seconds. SILT, good DF/PF. Assessment 1. S/P left ASHLEE, progressing well. Plan 1. Continue WBAT and activity as tolerated. 2. May discontinue post-operative DVT prophylaxis. 3. Follow up at one year for re-evaluation. documented in this encounter Plan of Treatment [...] Date/Time Associated Diagnosis Comments XR HIP LEFT 2 OR 3 VIEWS Schedule Routine, Read Routine (OP Routine) 12/16/2021 2:03 PM CDT Aftercare following joint replacement surgery, unspecified joint XR KNEE LEFT 3 VIEWS Schedule Routine, Read Routine (OP Routine) 12/16/2021 1:04 PM CDT History of arthroplasty of left knee documented in this encounter Results * XR Hip Left 2 or 3 Views (12/16/2021 2:03 PM CDT) Anatomical Region Laterality Modality Lower Extremities, Hip, Pelvis Left D igital Radiography Narrative 12/16/2021 2:32 PM CDT Left total hip replacement Puma Mckenzie MD IMG XR PROCEDURES Final Result * XR Knee Left 3 Views (12/16/2021 1:04 PM CDT) Anatomical Region Laterality Modality Lower Extremities, Knee Left Digital Radiography Puma Mckenzie MD IMG XR PROCEDURES Edited Result - Final documented in this encounter Visit Diagnoses Diagnosis History of arthroplasty of left knee- Primary Aftercare following joint replacement surgery, unspecified joint documented in this encounter Discontinued Medications Medication Sig Discontinue Reason Start Date End Da te ondansetron ODT (ZOFRAN-ODT) 4 mg disintegrating tabletIndications:nausea and vomiting Take 1 tablet (4 mg total) by mouth every 6 (six) hours as needed for nausea or vomiting Therapy completed 11/02/2021 12/16/2021 senna-docusate (Senna-S) 8.6-50 mgIndications:Constipatio n due to opioid therapy Take 1 tablet by mouth daily Therapy completed 04/21/2021 12/16/2021 documented as of this encounter Care Teams Hearing Therapist Relationship Specialty Start Date End Date Pepper Morgan MD PCP - General 09/16/16 Hank Garibay MD [address] [facility] [address] [place] [address] Surgeon Orthopedic Surgery 03/27/17 Jacky Murry MD [address] [facility] [address] [place] [address] Ophthalmology 03/27/17 Puma Mckenzie MD [address] [facility] [address] [place] [address] Surgeon Orthopedic Surgery 07/11/19 Neha Jackson, PT Physical Therapist Physical Therapy 12/01/21 documented as of this encounter
--- OUTSIDE RECORDS SUMMARY | 2024-06-18 18:56 | XMS_ITS | Encounter Summary ---
Author Organization [facility] Healthcare Address [address] [place] [address] Care Team Providers Care Office Assistant Name Role Phone Pepper Morgan MD Primary Care Provider + [phone] Hank Garibay MD Unavailable [phone] Jacky Murry MD Unavailable [phone] Puma Mckenzie MD Unavailable [phone] Neha Jackson PT Unavailable Unavailable Encounter Details Date Type Department Care Team (Late st Contact Info) Description 05/06/2022 Orders Only [facility] Cardiology [address] [place] [address] Evelyn Kaufman Social History Tobacco Use Types [...] on file Legal 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 Gender Identity Not on file Sexual [...] on filedocumented in this encounter Care Teams Office Assistant Relationship Specialty Start Date End Date Pepper Morgan MD PCP - General 09/16/16 Hank Garibay MD [address] [facility] [address] WARN[address] [place] [address] Surgeon Orthopedic Surgery 03/27/17 Jacky Murry MD [address] [facility] [address] WARN[address] [place] [address] Ophthalmology 03/27/17 Puma Mckenzie MD [address] [facility] [address] [place] [address] Surgeon Orthopedic Surgery 07/11/19 Neha Jackson, KEVIN Physical Therapist Physical Therapy 12/01/21 documented as of this encounter
--- OUTSIDE RECORDS SUMMARY | 2024-06-18 18:56 | XMS_ITS | Encounter Summary ---
Author Organization [facility] Address [address] [place] [address] Care Team Providers Care Boat Oar Maker Name Role Phone Pepper Morgan MD Primary Care Provider + [phone] Hank Garibay MD Unavailable [phone] Jacky Murry MD Unavailable [phone] Puma Mckenzie MD Unavailable [phone] Neha Jackson PT Unavailable Unavailable Reason for Visit * Reason Comments PT Treatment Encounter Details Date Type Department Care Team (Late st Contact Info) Description 01/05/2022 11:15 AM CDT Therapy [facility] Physical [place] [address] [place] [address] Neha Jackson, PT Lumbar radiculopathy (Primary Dx) Social History Tobacco [...] file 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 She is only taking 1/2 hydrocodone before bed as needed. Pain: 0/10 low back Objective: See treatment provided. Treatment Provided: Gentle stretching IASTM to low back and SIJ--with massage gun SLR x 15 Isometric hip adduction x 15 Supine clamshells, blue theraband x 15 PPT x 15 Recumbent bike x 5 min Assessment: Tolerating all activities well. She is making subjective improvements as of late. Plan: Continue PT POC. Possible D/C early. Start Time: 1108 End Time: 1145 Neha Jackson, PT, DPT documented in this encounter Plan [...] unspecified documented in this encounter Care Teams Boat Oar Maker Relationship Specialty Start Date End Date Pepper Morgan MD PCP - General 09/16/16 Hank Garibay MD [address] [facility] [address] [place] [address] Surgeon Orthopedic Surgery 03/27/17 Jacky Murry MD [address] [place] [address] DR WARNER [address] [address] Ophthalmology 03/27/17 Puma Mckenzie MD [address] [facility] [address] WARNER Sheridan [address] [address] Surgeon Orthopedic Surgery 07/11/19 Neha Jackson, PT Physical Therapist Physical Therapy 12/01/21 documented as of this encounter
--- OUTSIDE RECORDS SUMMARY | 2024-06-18 18:56 | XMS_ITS | Encounter Summary ---
Author Organization [facility] Address [address] [place] [address] Care Team Providers Care Fiber Optic Assembly Worker Name Role Phone Pepper Morgan MD Primary Care Provider + [phone] Hank Garibay MD Unavailable [phone] Jacky Murry MD Unavailable [phone] Puma Mckenzie MD Unavailable [phone] Neha Jackson PT Unavailable Unavailable Reason for Visit * Reason Comments PT Treatment Encounter Details Date Type Department Care Team (Late st Contact Info) Description 12/30/2021 10:45 AM CDT Therapy [facility] Physical Therapy [place] [address] [place] [address] Neha Jackson, PT Lumbar radiculopathy (Primary Dx) [...] on file 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 She returned to pain management and her and the doctor agreed that she would continue with the current plan. Pain: 0/10 low back Objective: See treatment provided. Treatment Provided: Gentle stretching IASTM to low back and SIJ--with massage gun SLR x 15 Isometric hip adduction x 15 Recumbent bike x 5 min Assessment: Tolerating all activities well. She is making subjective improvements as of late. Plan: Continue PT POC. Start Time: 1043 End Time: 1115 Neha Jackson PT, DPT documented in this [...] unspecified documented in this encounter Care Teams Fiber Optic Assembly Worker Relationship Specialty Start Date End Date Pepper Morgan MD PCP - General 09/16/16 Hank Garibay MD [address] [facility] [address] [place] [address] Surgeon Orthopedic Surgery 03/27/17 Jacky Murry MD [address] [facility] [address] WARN[address] [place] [address] Ophthalmology 03/27/17 Puma Mckenzie MD [address] [facility] [address] [place] [address] Surgeon Orthopedic Surgery 07/11/19 Neha Jackson, PT Physical Therapist Physical Therapy 12/01/21 documented as of this encounter
--- OUTSIDE RECORDS SUMMARY | 2024-06-18 18:56 | XMS_ITS | Encounter Summary ---
Author Organization [facility] Address [address] [place] [address] Phone Care Team Providers Care Finishing Machine Operator Name Role Phone Pepper Morgan MD Primary Care Provider + [phone] Hank Garibay MD Unavailable [phone] Jacky Murry MD Unavailable [phone] Puma Mckenzie MD Unavailable [phone] Reason for Visit * Auth/Cert Specialty Diagnoses / Procedures Referred By Contac t Referred To Contact Referral ID Status Reason Start Date Expiration Date Visits Re quested Visits Authorized [id number] 1 1 Encounter Details Date Type Department Care Team (Late st Contact Info) Description 11/22/2021 9:00 AM CDT Home Care Visit [facility] Home Health [place] [address] [address] [place] [address] Lili Nino, PT PT OASIS DISCHARGE Social History Tobacco Use Types Packs/Day Years [...] on file 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 Gender Identity Not on file Sexual Orientation Not on file Occupation Industry Job Start Date Job End Date retired Not on file Not on file Not on file documented as of this encounter Last Filed Vital Signs Vital Sign Reading Time Taken Comments Blood Pressure 112/60 11/22/2021 9:27 AM CDT Pulse 82 11/22/2021 9:27 AM CDT Temperature 35.8 ??C (96.4 ??F) 11/22/2021 9:27 AM CD T Respiratory Rate 18 11/22/2021 9:27 AM CDT Oxygen Saturation 92% 11/22/2021 9:27 AM CDT Inhaled Oxygen Concentration - - Weight 85.3 kg (188 lb) 11/22/2021 9:27 AM CDT Height - - Body Mass Index 36.72 11/11/2021 1:40 PM CDT documented in this encounter Miscellaneous Notes * Home Health Visit Narrative - Lili Nino, PT - 11/22/2021 9:19 AM CDT Pt is s/p anterior L ASHLEE by Dr. Mckenzie on 11/01. She denies any falls. She reports she feels she may have pulled a muscle in her R LE, she indicates to lateral hip and thigh, while getting into her sister's car over the weekend. She has been applying ice, and reports pain improving. Pt reports minimal pain in the L hip. Pt reports she uses her cane at times during the day, however tends to use her 2WW to use the basket to transport items in the home. Pt sheduled to begin outpt PT at [facility] on 12/01. Zipline dressing intact to L hip, pt was advised by ortho PA she can remove on 11/24. At this time pt has no further questions or concerns, and is agreeable to DC. Pt has assist from her sister and daughter who both live nearby. documented in this encounter Plan of Treatment Not on file documented as of this encounter Visit Diagnoses Not on filedocumented in this encounter Home Health Visit - Care Plan Visit Details Visit Type -PT OASIS Dischar ge Discipline -Physical Therapy Problems Problem Description Start Date Status Goals Interve ntions Homebound Status Disciplines: Skilled Disciplines Patient's homebound status 11/04/2021 Active 1 goal linked to scheduled/documen azar intervention 1 goal intervention scheduled/documen azar in this visit Monitor patient's vital signs every home health visit Disciplines: SN, PT, OT, THEATER EDUCATION TEACHER, BRAKE REPAIRER BUS, Skilled Disciplines Monitor patient's vital signs every home health visit. 11/04/2021 Active 1 goal linked to scheduled/documen azar intervention 1 goal intervention scheduled/documen azar in this visit Safety concerns Disciplines: Skilled Disciplines Alteration in safety 11/04/2021 Active 1 goal linked to scheduled/documen azar intervention 2 goal interventions scheduled/documen azar in this visit Pain Disciplines: Core Disciplines Alteration in comfort 11/04/2021 Active 1 goal linked to scheduled/documen azar intervention 1 goal intervention scheduled/documen azar in this visit PT Orthopedic-Total Joint Replacement Disciplines: Physical Therapy Total Joint Replacement of L ASHLEE 11/05/2021 Active - 4 problem interventions scheduled/documen azar in this visit Goals Goal Associated Problem Outcome Goal Met? Visit Notes Patient receives care at the most appropriate care setting Description: Patient receives care at the most appropriate care setting. Homebound Status No Measure vital signs during every home health visit during episode of care Description: Home resident service coordinator to measure vital signs during every home health visit during episode of care. Monitor patient's vital signs every home health visit No Demonstrate use of safety precautions Description: Patient/caregiver maintains safe home environment as evidenced by remaining free from injury and demonstrates use of safety precautions. Safety concerns No Report that pain has been reduced or controlled Description: Patient/caregiver/family will verbalize satisfaction with the patients level of pain and symptom control. Pain No Interventions Intervention Associated Problem/Goal Status Variance Visit Notes Homebound Status Description: Patient is homebound due to pain and impaired mobility secondary to Left total hip arthroplasty. Patient walks with a walker, requires of another person to leave home due to activity intolerance post surgery. Problem:Homebound Status Goal:Patient receives care at the most appropriate care setting Completed Patient is homebound due to pain and impaired mobility secondary to Left total hip arthroplasty. Patient walks with a walker, requires of another person to leave home due to activity intolerance post surgery. Monitor Vital Signs Description: Monitor blood pressure, pulse, oxygen saturation, respirations Problem:Monitor patient's vital signs every home health visit Goal:Measure vital signs during every home health visit during episode of care Completed Instruct Fall Prevention Description: Instruct patient/caregiver in methods to prevent falls Problem:Safety concerns Goal:Demonstrate use of safety precautions Completed Assess safety Description: Assess patient safety Problem:Safety concerns Goal:Demonstrate use of safety precautions Completed Instruct on pain management techniques Description: Instruct in pharmacologic and nonpharmacologic pain management techniques. Problem:Pain Goal:Report that pain has been reduced or controlled Completed Home Exercise Program (HEP) Description: Instruct patient/caregiver and perform HEP. Problem:PT Orthopedic-Total Joint Replacement Completed Reviewed and performed HEP standing w B UE support: Heel / toe raises, Hip abd x 10 B LE, Hip flex w knee flex alternating LE, L hamstring curls. Performed x 10 reps ea. Pt reports mild 'pulling' in L low back w performing L hip abd; she reports pain decreased w tactile cueing to decrease abd ROM. She denies any inc pain w all other therex. PT instructed pt to continue HEP supine and standing 2x/day; pt verb agreement. Pt has written instructions for HEP for reference. Gait/Stair Training Description: Instruct patient/caregiver and perform gait/stair training. Problem:PT Orthopedic-Total Joint Replacement Completed Gait in home x 90 ft using SPC in R UE, pt demonstrates good reiprocal pattern using cane w/o cueing. Slight dec stance L and mild trunk lean to the R. Pt reports mild pain in L low back w gait, however reports this has been improved since her meds were updated by pain mgmt. Instructed pt on 4 steps to access garage, w cueing to switch cane to L UE to use R UE support on rail with descending steps; cueing to descend leading w L LE. Practiced descend / ascend 4 steps x 2 trials, pt demonstrates correct return w second trial. Bed Mobility/Transfer Training Description: Instruct patient/caregiver and perform bed mobility/transfer training. Problem:PT Orthopedic-Total Joint Replacement Completed Pt transfers sit <> stand from recliner chair w/o AD, relying on mod assist B UE pushing up, w (I). Pt demonstrates good safety and control w stand > sit. Therapeutic Exercise Description: Perform therapeutic exercise, progressing as tolerated. Problem:PT Orthopedic-Total Joint Replacement Completed See HEP comments documented in this encounter Care Teams Finishing Machine Operator Relationship Specialty Start Date End Date Pepper Morgan MD PCP - General 09/16/16 Hank Garibay MD [address] [facility] [address] WARNER [address] [facility] [address] [place] [address] Surgeon Orthopedic Surgery 03/27/17 Jacky Murry MD [address] [facility] [address] WARNER [address] [facility] [address] [place] [address] Ophthalmology 03/27/17 Puma Mckenzie MD [address] [facility] [address] WARN[address] [place] [address] Surgeon Orthopedic Surgery 07/11/19 documented as of this encounter
--- OUTSIDE RECORDS SUMMARY | 2024-06-18 18:56 | XMS_ITS | Encounter Summary ---
Author Organization [facility] Address [address] [facility] [address] [place] [address] Care Team Providers Care Field Reviewer Name Role Phone Pepper Morgan MD Primary Care Provider + [phone] Hank Garibay MD Unavailable [phone] Jacky Murry MD Unavailable [phone] Puma Mckenzie MD Unavailable [phone] Neha Jackson PT Unavailable Unavailable Reason for Visit * Reason Onset Date Comments med changed 04/07/2022 Encounter Details Date Type Department Care Team (Late st Contact Info) Description 04/07/2022 Telephone [facility] [address] [place] [phone] Pepper Morgan MD [address] [place] [address] med changed Social History Tobacco Use Types Packs/Day Years Used Date Smoking Tobacco: Former Cigarettes - 1981 Smokeless Tobacco: Never Alcohol Use [...] on file 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 Patient aware to call with any increased signs of bleeding and voiced understanding. RX sent by anali to [facility] rivaroxaban (XARELTO) 20 mg tablet Take 1 tablet (20 mg total) by mouth daily, Starting 04/08/2022, Normal * Telephone Encounter - Katy Lopes RN - 04/08/2022 11:12 AM CDT Images from the original note were not included. April 07, 2022 Pepper Morgan MD to Luis E Washington [facility]40 PM Yes she may switch to Xarelto 20 mg daily at next refill, set up enough refills until office follow-up. Cancel the Eliquis. Humberto under the comments to pharmacy that insurance formulary does not allow Eliquis requires Xarelto Inform the patient Xarelto works great but does have a slight increase risk of bleeding. Contact meif she has any bleeding issues. * Telephone Encounter - Luis E Washington RN - 04/07/2022 12:04 PM CDT See below pt req Ok to change pt from Eliquis to Xarelto due to ins change/cost * Telephone Encounter - Vickie Araujo - 04/07/2022 9:04 AM CDT Patient calling her insurance called her regarding her eliquis she needs this changed to xarelto. The eliquis is going to be around 600.00 a month and she is already paying 170.00 a month. Cbn: [phone] documented in this encounter Plan of Treatment [...] Discontinue Reason Start Date End Da te apixaban (ELIQUIS) 5 mg tabletIndications:Atrial fibrillation, unspecified type (HCC) Take 1 tablet (5 mg total) by mouth 2 (two) times a day Formulary change 05/31/2021 04/08/2022 documented as of this encounter Care Teams Field Reviewer Relationship Specialty Start Date End Date Pepper Morgan MD PCP - General 09/16/16 Hank Garibay MD [address] [facility] [address] WARN[address] [place] [address] Surgeon Orthopedic Surgery 03/27/17 Jacky Murry MD [address] [facility] [address] [place] [address] Ophthalmology 03/27/17 Puma Mckenzie MD [address] [facility] [address] [place] [address] Surgeon Orthopedic Surgery 07/11/19 Neha Jackson, PT Physical Therapist Physical Therapy 12/01/21 documented as of this encounter
--- OUTSIDE RECORDS SUMMARY | 2024-06-18 18:56 | XMS_ITS | Encounter Summary ---
Author Organization [facility] Healthcare Address [address] [place] [address] Care Team Providers Care Occupational Therapy Instructor Name Role Phone Pepper Morgan MD Primary Care Provider + [phone] Hank Garibay MD Unavailable [phone] Jacky Murry MD Unavailable [phone] Puma Mckenzie MD Unavailable [phone] Neha Jackson PT Unavailable Unavailable Encounter Details Date Type Department Care Team (Late st Contact Info) Description 04/18/2022 12:35 PM CDT Lab [address] [id number] Peripheral arterial disease (CMS/HCC) (HCC) Social History Tobacco Use [...] on file 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 73 m2 [facility] ([place]) Comment: [...] interpretive data was last reviewed 2021. Blood 04/18/2022 12:4 3 PM CDT 04/18/2022 1:42 PM CDT us Stalin Arauz MD LAB BLOOD ORDERABLES Final Resu lt [facility] Department [place] [address] * Basic metabolic panel (04/18/2022 12:43 PM CDT) Sodium 135 135 - 145 mmol/L [facility] ([place] Potassium, pl 4.0 3.3 - 4.9 mmol/L [facility] ([place] Chloride 99 97 - 110 mmol/L [facility] ([place]) CO2 30 22 - 32 mmol/L [facility] ([place]) Anion gap 6 2 - 15 mmol/L [facility] ([place] BUN 15 8 - 25 mg/dL [facility] ([place] Creatinine 0.62 0.60 - 1.10 mg/dL [facility] ([place] Glucose 99 70 - 199 mg/dL [facility] [...] interpretive data was last revised 2017. Calcium 9.6 8.5 - 10.3 mg/dL [facility] ([place]) Blood 04/18/2022 12:4 3 PM CDT 04/18/2022 1:42 PM CDT us Stalin Arauz MD LAB BLOOD ORDERABLES Final Resu lt [facility] ([place]) [address] [facility] Department [place] [address] * (ABNORMAL) Pro B-type natriuretic peptide (04/18/2022 12:43 PM CDT) NT-proBNP 1,998(H) <=450 pg/mL [facility] ([place]) Comment: Interpretive [...] Interpretive Data Last Revised Date: 2018. Blood 04/18/2022 12:4 3 PM CDT 04/18/2022 1:42 PM CDT us Stalin Arauz MD LAB BLOOD ORDERABLES Final Resu lt [facility] ([place]) [address] [facility] Department [place] [address] documented in this encounter Visit Diagnoses Diagnosis Peripheral arterial disease (HCC) Unspecified peripheral vascular disease documented in this encounter Care Teams Occupational Therapy Instructor Relationship Specialty Start Date End Date Pepper Morgan MD PCP - General 09/16/16 Hank Garibay MD [address] [place] [address] [address] [place] [address] Surgeon Orthopedic Surgery 03/27/17 Jacky Murry MD [address] [facility] [address] [place] [address] Ophthalmology 03/27/17 Puma Mckenzie MD [address] [facility] [address] [place] [address] Surgeon Orthopedic Surgery 07/11/19 Neha Jackson PT Physical Therapist Physical Therapy 12/01/21 documented as of this encounter
--- OUTSIDE RECORDS SUMMARY | 2024-06-18 18:56 | XMS_ITS | Encounter Summary ---
Author Organization [facility] Address [address] [facility] [address] [place] [address] Care Team Providers Care Bulldozer Press Operator Name Role Phone Pepper Morgan MD Primary Care Provider + [phone] Hank Garibay MD Unavailable [phone] Jacky Murry MD Unavailable [phone] Puma Mckenzie MD Unavailable [phone] Neha Jackson PT Unavailable Unavailable Encounter Details Date Type Department Care Team (Late st Contact Info) Description 03/21/2022 Telephone [facility] at [address] [place] [id number] Hai Dalton MA Social History Tobacco [...] on file Legal 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 She is scheduled for and AIF for her right leg this 03/24/22. She is concerned about the left leg still being swollen. Please advise. documented in this encounter Plan [...] on filedocumented in this encounter Care Teams Bulldozer Press Operator Relationship Specialty Start Date End Date Pepper Morgan MD PCP - General 09/16/16 Hank Garibay MD [address] [place] [address] [place] [address] Surgeon Orthopedic Surgery 03/27/17 Jacky Murry MD [address] [facility] [address] [place] [address] Ophthalmology 03/27/17 Puma Mckenzie MD [address] [facility] [address] [place] [address] Surgeon Orthopedic Surgery 07/11/19 Neha Jackson, KEVIN Physical Therapist Physical Therapy 12/01/21 documented as of this encounter
--- OUTSIDE RECORDS SUMMARY | 2024-06-18 18:56 | XMS_ITS | Encounter Summary ---
Author Organization [facility] Address [address] [place] [address] Care Team Providers Care Cartographic Drafter Name Role Phone Pepper Morgan MD Primary Care Provider + [phone] Hank Garibay MD Unavailable [phone] Jacky Murry MD Unavailable [phone] Puma Mckenzie MD Unavailable [phone] Neha Jackson PT Unavailable Unavailable Reason for Visit * Reason Onset Date Comments Med Refill 02/03/2022 Encounter Details Date Type Department Care Team (Late st Contact Info) Description 02/03/2022 Telephone [facility] [address] [place] [phone] Pepper Morgan MD [address] [place] [address] Med Refill Social History Tobacco Use Types [...] on file 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 She is on the second round of pills that were ordered and has enough until Monday. Patient is asking for a refill to continue medication. Her prescription said to call for refills if it works but does not give a quantity to fill. Okay to fill Clonazepam 0.5 mg nightly-and how many? Please advise. * Telephone Encounter - Vickie Araujo - 02/03/2022 9:34 AM CDT Patient calling the clonazepam is working good for her and she would like a refill on them. nash velázquez. Cbn: [phone] documented in this encounter Plan [...] End Da te clonazePAM (KlonoPIN) 0.5 mg tabletIndications:Restle ss legs syndrome Take 1 tablet (0.5 mg total) by mouth nightly for 7 days Reorder 01/24/2022 02/04/2022 documented as of this encounter Care Teams Cartographic Drafter Relationship Specialty Start Date End Date Pepper Morgan MD PCP - General 09/16/16 Hank Garibay MD [address] [facility] [address] [place] [address] Surgeon Orthopedic Surgery 03/27/17 Jacky Murry MD [address] [place] [address] [address] [place] [address] Ophthalmology 03/27/17 Puma Mckenzie MD [address] [facility] [address] [place] [address] Surgeon Orthopedic Surgery 07/11/19 Neha Jackson PT Physical Therapist Physical Therapy 12/01/21 documented as of this encounter
--- OUTSIDE RECORDS SUMMARY | 2024-06-18 18:56 | XMS_ITS | Encounter Summary ---
Author Organization [facility] Address [address] [facility] [address] [place] [address] Care Team Providers Care Hall Tender Name Role Phone Pepper Morgan MD Primary Care Provider + [phone] Hank Garibay MD Unavailable [phone] Jacky Murry MD Unavailable [phone] Puma Mckenzie MD Unavailable [phone] Neha Jackson PT Unavailable Unavailable Reason for Visit * Reason Onset Date Comments Drug Problem 01/24/2022 Encounter Details Date Type Department Care Team (Late st Contact Info) Description 01/24/2022 Telephone [facility] [address] [place] [phone] Pepper Morgan MD [address] [place] [address] Drug Problem Social History Tobacco Use Types Packs/Day [...] on file 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 You do not have to take the medicine the morning if you are not having problem 270 tablet 1 01/24/2022 2 documented in this encounter Miscellaneous Notes * Telephone Encounter - Vickie Araujo - 01/24/2022 1:21 PM CDT Pharmacy calling there is two different directions on the generic mirapax. Which one should they use? Cbn: [phone] documented in this encounter Plan of Treatment [...] mg tabletIndications:Idiop athic Parkinsonism,Restless Legs Syndrome Take 1-3 tablets (0.125-0.375 mg total) by mouth nightly as needed (Doses needed to control the evening Restless leg) Take at 9:00 a.m., 3:00 p.m., 9:00 p.m. Reorder 01/24/2022 01/24/2022 documented as of this encounter Care Teams Hall Tender Relationship Specialty Start Date End Date Pepper Morgna MD PCP - General 09/16/16 Hank Garibay MD [address] [facility] [address] [facility] [address] [place] [address] Surgeon Orthopedic Surgery 03/27/17 Jacky Murry MD [address] [place] [address] [address] [facility] [address] [place] [address] Ophthalmology 03/27/17 Puma Mckenzie MD [address] [place] [address] [address] [facility] [address] [place] [address] Surgeon Orthopedic Surgery 07/11/19 Neha Jackson PT Physical Therapist Physical Therapy 12/01/21 documented as of this encounter
--- OUTSIDE RECORDS SUMMARY | 2024-06-18 18:56 | XMS_ITS | Encounter Summary ---
Author Organization [facility] Address [address] [place] [address] Care Team Providers Care Imaging Science Professor Name Role Phone Pepper Morgan MD Primary Care Provider [phone] Hank Garibay MD Unavailable [phone] Jacky Murry MD Unavailable [phone] Puma Mckenzie MD Unavailable [phone] Neha Jackson PT Unavailable Unavailable Reason for Visit * Diagnostic Imaging (Routine) - Closed Specialty Diagnoses / Procedures Referred By Contac t Referred To Contact Diagnoses Aftercare following joint replacement surgery, unspecified joint Procedures XR Hip Left 2 or 3 Views Puma Mckenzie MD Phone: tel: [facility] Referral ID Status Reason Start Date Expiration Date Visits Re quested Visits Authorized [id number] Closed 12/16/2021 01/15/2023 1 1 Encounter Details Date Type Department Care Team (Latest Contact Info) Description 12/16/2021 1:52 PM CDT - 12/16/2021 11:59 PM CDT Hospital Encounter [facility] Orthopedics and Sports Medicine [address] [place] [address] [address], [place] [address] Discharge Disposition: Discharge to home or self [...] file 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 Gender Identity Not on file Sexual Orientation Not on file Occupation Industry Job Start Date Job End Date retired Not on file Not on file Not on file documented as of this encounter Medications at Time of Discharge cholecalciferol (VITAMIN D-3) 2000 unit tablet Take 1 tablet (2,000 Units total) by mouth daily albuterol HFA (Proventil HFA) 90 mcg/actuation inhalerIndications :Cough Inhale 2 puffs every 6 (six) hours as needed for wheezing or shortness of breath 6.7 g 10/14/2021 2 apixaban (ELIQUIS) 5 mg tabletIndications: Atrial fibrillation, unspecified type (HCC) Take 1 tablet (5 mg total) by mouth 2 (two) times a day 60 tablet 11 05/31/2021 2 cetirizine (ZyrTEC) 10 mg tabletIndications: Angioedema, subsequent encounter Take 1 tablet (10 mg total) by mouth nightly 90 tablet 3 09/17/2021 3 felodipine (PLENDIL) 5 mg 24 hr tabletIndications: 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 Take 1 tablet (5 mg total) by mouth daily 90 tablet 1 09/17/2021 2 furosemide (LASIX) 40 mg tabletIndications: 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 Take 1 tablet (40 mg total) by mouth daily 90 tablet 1 08/23/2021 2 HYDROcodone-acetam inophen (NORCO) 10-325 mg per tabletIndications: Pain Take 1 tablet by mouth every 4 (four) hours as needed for pain 90 tablet 11/16/2021 2 methocarbamoL (ROBAXIN) 500 mg tablet Take 1 tablet (500 mg total) by mouth nightly as needed for muscle spasms 30 tablet 11/30/2021 2 naloxone (NARCAN) 4 mg/actuation spray,non-aerosolI ndications:Chronic pain disorder Administer 1 spray into affected nostril(s) as needed for opioid reversal or respiratory depression Call 911. Administer a single spray in one nostril. Repeat every 3 minutes as needed if no or minimal response. 1 each 11/11/[address] (PROTONIX) 20 mg EC tabletIndications: Chronic GERD Take 1 tablet (20 mg total) by mouth daily With the largest meal 90 tablet 1 08/23/2021 2 polyethylene glycol (MIRALAX) 17 gram packetIndications: constipation Take 1 packet (17 g total) by mouth daily 05/26/2020 2 pramipexole (MIRAPEX) 0.125 mg tabletIndications: Idiopathic Parkinsonism,Restl ess Legs Syndrome Take 1 tablet (0.125 mg total) by mouth 3 (three) times a day Take at 9:00 a.m., 3:00 p.m., 9:00 p.m. 270 tablet 1 08/23/2021 2 propranoloL (INDERAL) 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: Hereditary essential tremor Take 1 tablet (20 mg total) by mouth 2 (two) times a day as needed (Tremor) 180 tablet 1 08/23/2021 2 spironolactone (Aldactone) 25 mg tabletIndications: 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 Take 0.5 tablets (12.5 mg total) by mouth daily Take 1/2 tablet daily 50 tablet 1 08/23/2021 2 documented as of this encounter Discharge Disposition [...] surgery, unspecified joint documented in this encounter Results * XR Hip Left 2 or 3 Views (12/16/2021 2:03 PM CDT) Anatomical Region Laterality Modality Lower Extremities, Hip, Pelvis Left D igital Radiography Narrative 12/16/2021 2:32 PM CDT Left total hip replacement Puma Mckenzie MD IMG XR PROCEDURES Final Result documented in this encounter Visit Diagnoses Not on filedocumented in this encounter Care Teams Imaging Science Professor Relationship Specialty Start Date End Date Pepper Morgan MD PCP - General 09/16/16 Hank Garibay MD [address] [facility] [address] [place] [address] Surgeon Orthopedic Surgery 03/27/17 Jacky Murry MD [address] [facility] [address] [place] [address] Ophthalmology 03/27/17 Puma Mckenzie MD [address] [facility] [address] [place] [address] Surgeon Orthopedic Surgery 07/11/19 Neha Jackson, PT Physical Therapist Physical Therapy 12/01/21 documented as of this encounter
--- OUTSIDE RECORDS SUMMARY | 2024-06-18 18:56 | XMS_ITS | Encounter Summary ---
Author Organization [facility] Address [address] [place] [address] Care Team Providers Care Manager Retail Sales Name Role Phone Pepper Morgan MD Primary Care Provider [phone] Hank Garibay MD Unavailable [phone] Jacky Murry MD Unavailable [phone] Puma Mckenzie MD Unavailable [phone] Neha Jackson PT Unavailable Unavailable Reason for Visit * Reason Comments PT Initial Eval * Consultation (Routine) - Closed Specialty Diagnoses / Procedures Referred By Contac t Referred To Contact Physical Therapy Diagnoses Lumbar radiculopathy Puma Johnson MD Phone: tel: fax: [address] [address] Referral ID Status Reason Start Date Expiration Date V isits Requested Visits Authorized [id number] Closed Specialty Services Required 11/16/2021 12/16/2022 24 24 Encounter Details Date Type Department Care Team (Late st Contact Info) Description 12/01/2021 9:00 AM CDT Therapy 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 female Puma Johnson MD [address] [place] [address] [address] ICD-9-CM ICD-10-CM 1. Lumbar radiculopathy 724.4 M54.16 Ambulatory referral order to Physical Therapy - PT Initial Eval Subjective History of Present Illness: Tess presents to PT evaluation with complaints of low back pain. She has been following Dr. Johnson with pain management, who prescribed her [place] and Flexeril, which haveimproved her pain. She reports a great reduction in her pain. She reports her pain began about 3 years ago after a fall. She is recently s/p L TKA performed by Dr. Mckenzie on 10/31/2021. She did participate in home health PT following surgery. She reports that her hip feels better, but she woke up in a lot of increased back pain after the surgery. She was referred to pain management for her pain. She also has a history of R ASHLEE that was performed a few years ago as well as B TKA. She did have some back pain previously before her hip surgery, but it was much more manageable at that time. Current Symptoms: She reports that she has pain at night when laying down and when standing for long periods. She c/o pain across her low back with radiating symptoms to her L leg. She reports that last time she was able to sleep for 8 hours. She reports that she does have radiating pain down to her L knee, but no numbness or tingling. Pain: Pain location: low back Current Pain Ratin/10 At worst Pain Ratin/10 At best Pain Ratin/10 Aggravating Factors: laying on back, standing for long periods > 10 minutes Alleviating Factors: heat, pain medications, sitting Function: Prior Level of Function: Tess lives alone. She reports that she is very independent in her community as well as at home. She hires a ip litigation associate that comes 1x/monthly. Current Functional Level: She reports that sleeping has been very uncomfortable. She also reports difficulty with walking around as well as standing. Patient Goals: Get rid of the back pain. Objective Posture: no major postural abnormalities Lumbar AROM: minimal pain with all motions; extension is most limited and painful Lower Extremity Strength: Left Right Hip Flexion 4/5 4/5 Hip Extension 4-/5 4-/5 Hip External Rotation 4-/5 4-/5 Hip Internal Rotation 4-/5 4-/5 Hip Abduction 4-/5 4-/5 Hip Adduction 4/5 4/5 Knee Extension 5/5 5/5 Knee Flexion 5/5 5/5 Ankle DF 5/5 5/5 Ankle PF 5/5 5/5 Core Strength: 4-/5 Lower Extremity Flexibility: L very reduced and performed cautiously due to recent ASHLEE Palpation: mild tenderness across B SIJ MARGO: 42% disability Treatment Provided: Gentle stretching IASTM to low back and SIJ Recumbent stepper x 3 min HEP: LTR Lumbar flexion stretch (sitting) PPT Bridging Assessment/Plan Assessment Impairments: pain with function, endurance, abnormal or restricted ROM, flexibility, edema, impaired physical strength, lacks appropriate home exercise program, decreased mobility Assessment details: Tess presents to PT evaluation with low back pain. Her back pain is chronic in nature; however, she did have a recent flare-up of pain following her hip surgery. She hopes to achieve pre-surgical pain levels and would benefit from skilled PT in order to restore PLOF. Prognosis: good Prognosis details: Tess is motivated to reduce her pain. Goals STG 1:: Patient will be independent and compliant with HEP in order to promote optimal PT outcomes. STG 2:: Patient will improve lower body flexibility impairments from initial evaluation. LTG 1:: Patient will reduce MARGO to <20% disability in order to improve her ability to restore PLOF. LTG 2:: Patient will improve B LE strength and core strength >1/2 grade from initial evaluation in order to improve her ability to tolerate standing activities >15 minutes. LTG 3:: Patient will improve low back pain levels to <3/10 maximally with all activities in order to improve her ability to sleep uninterrupted. Plan Start time: 904 End time: 954 Therapy options: will be seen for skilled therapy services Planned modality interventions: thermotherapy (hydrocollator packs), cryotherapy, interferential current, ultrasound, electrical stimulation/German stimulation Planned therapy interventions: abdominal trunk stabilization, neuromuscular re- education, strengthening, home exercise program, soft tissue mobilization, functional ROM exercises, gait training, manual therapy, Kinesiotaping, balance/weight-bearing training Frequency: 2 x/week, 1 x/week Duration in weeks: 4 weeks Discussed with: patient Future Treatment Plan: Stretching/activities may be limited due to recent L ASHLEE Progress STM, core stabilization, heat, as needed. Neha Jackson, PT, DPT documented in this [...] or radiculitis, unspecified documented in this encounter Orders Outpatient Referral Count Last Ordered Date Fir st Ordered Date AMB REFERRAL ORDER TO PHYSICAL THERAPY 1 06 / documented in this encounter Care Teams Manager Retail Sales Relationship Specialty Start Date End Date Pepper Morgan MD PCP - General 09/16/16 Hank Garibay MD [address] [facility] [address] [place] [address] Surgeon Orthopedic Surgery 03/27/17 Jacky Murry MD [address] [place] [address] [address] [place] [address] Ophthalmology 03/27/17 Puma Mckenzie MD [address] [place] [address] [address] [place] [address] Surgeon Orthopedic Surgery 07/11/19 Neha Jackson PT Physical Therapist Physical Therapy 12/01/21 documented as of this encounter
--- OUTSIDE RECORDS SUMMARY | 2024-06-18 18:56 | XMS_ITS | Encounter Summary ---
Author Organization [facility] Address [address] [place] [address] Care Team Providers Care Internal Audit Senior Manager Name Role Phone Pepper Morgan MD Primary Care Provider + [phone] Hank Garibay MD Unavailable [phone] Jacky Murry MD Unavailable [phone] Puma Mckenzie MD Unavailable [phone] Neha Jackson PT Unavailable Unavailable Reason for Visit * Reason Comments Follow-up Encounter Details Date Type Department Care Team (Latest Contact Info) Description 12/22/2021 2:12 PM CDT - 12/22/2021 11:59 PM CDT Hospital Encounter [facility] [address] [place] [address] A, William [address] [place] [address] Puma Johnson MD [address] [place] [address] [address] [place] [address] Lumbar radiculopathy (Primary Dx); Chronic bilateral low back pain with left-sided sciatica; Insomnia secondary to chronic pain; MCFP current use of anticoagulant; 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 Discharge Disposition: Discharge to home or self [...] on file 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 Gender Identity Not on file Sexual Orientation Not on file Occupation Industry Job Start Date Job End Date retired Not on file Not on file Not on file documented as of this encounter Last Filed Vital Signs Vital Sign Reading Time Taken Comments Blood Pressure 142/80 12/22/2021 2:27 PM CDT Pulse 87 12/22/2021 2:27 PM CDT Temperature - - Respiratory Rate 16 12/22/2021 2:27 PM CDT Oxygen Saturation 99% 12/22/2021 2:27 PM CDT Inhaled Oxygen Concentration - - Weight - - Height - - Body Mass Index - - documented in this encounter Discharge Instructions * Attachments The following attachments cannot be sent through Care Everywhere. * Opioid Pain Management (Correction Lieutenant) (Gabonese) documented in this encounter Medications at Time [...] tabletIndications: Pain Take 1 tablet by mouth daily as needed for pain 30 tablet 01/17/2022 2 methocarbamoL (ROBAXIN) 500 mg tabletIndications: Lumbar radiculopathy Take 1 tablet (500 mg total) by mouth nightly as needed for muscle spasms 30 tablet 1 12/22/2021 2 naloxone (NARCAN) 4 mg/actuation spray,non-aerosolI ndications:Chronic [...] 08/23/2021 2 documented as of this encounter Ordered Prescriptions Prescription Sig Dispense Quantity Refills Last Filled Start Date End Date HYDROcodone-acetami nophen (NORCO) 10-325 mg per tabletIndications:P ain Take 1 tablet by mouth daily as needed for pain 30 tablet 01/17/2022 2 methocarbamoL (ROBAXIN) 500 mg tabletIndications:L umbar radiculopathy Take 1 tablet (500 mg total) by mouth nightly as needed for muscle spasms 30 tablet 1 12/22/2021 2 documented in this encounter Discharge Disposition Disposition Code Departure Means Destination Discharge to home or self care documented in this encounter Progress Notes * Puma Johnson MD - 12/22/2021 2:30 PM CDT Patient Name: Tess Benedict : 1935 Today's Date: 12/22/2021 PCP: Pepper Morgan MD Referring: No ref. provider found Chief Complaint Patient presents with ??? Follow-up HPI Tess Benedict is a 86 y.o. year old female seen in consultation today for No ref. provider found. Today she returns to the [facility] with a report of 80% relief of her pain with continued physical therapy and with the use of [place] 10/325, and Flexeril. Today she again states that she has no pain during day and her pain is only at night. She continues with a Chief Complaint ofbilateral low back pain her left is worse than her right with radiation to her left buttock, and down the left posterior thigh to her knee. She denies any right leg pain. Her pain began initially approximately 3 years ago when she fell. Her pain however has become much worse since having a left total hip replacement. Initiating Events include initially she fell, however more recently it was following left total hip replacement. The pain is described as an intermittent sharp , stabbing, shooting, nagging pain. It rates Currently 0/10 on the numeric pain scale. At Worst 9/10 Provocative maneuvers include at night and with lying down., At Best 0/10 Alleviating maneuvers include during the day, with activity, standing, walking, and distraction. With regard to additional symptoms the patient denies any leg Weakness, She denies any Numbness. She denies bowel or bladder incontinence. She reports chronic pain associated Insomnia. Therapeutic modalities attempted to date include [place] 10/325 provides her relief, Flexeril provides her relief, Robaxin provides her relief, tramadol provided her no relief, ice provides relief, Aleve provides relief, Tylenol provides her no relief, and physical therapy provided her no relief. Pain Score: 0 - No pain Pain Location: Back (Lumbar) Pain Radiating Towards: denies Pain Descriptors: Sharp Pain Frequency: Intermittent Pain Onset: Ongoing Clinical Progression: Gradually improving Effect of Pain on Daily Activities: able to complete ADLs Allergies Allergen Reactions ??? Celecoxib Anaphylaxis ??? Scopolamine Mental status changes Delirium postop after joint replacement due to this medicine ??? Sulfa (Sulfonamide Antibiotics) Anaphylaxis ??? Amlodipine Swelling ??? Lisinopril Swelling ??? Trazodone Swelling Tongue ??? Cymbalta [Duloxetine] Fatigue Sleepiness, tiredness possibly related to 20 mg morning dose of this medicine discontinued 11/30/2020 ??? Sinemet [Carbidopa-Levodopa] Other (See comments) Night hines Past Medical History: Diagnosis Date ??? Allergic rhinitis ??? Arrhythmia A-fibrillation ??? Arthritis of ankle ??? Basal cell carcinoma of nose 09/2008 ??? CHF (congestive heart failure) ([facility]/HCC) ([facility]) ??? Cough ??? DVT (deep venous thrombosis) ([facility]) ([facility]) 1977 upper left arm near elbow--- ??? [...] Left foot pain 03/1999 ? gout ??? Malignant melanoma (CMS/HCC) (HCC) Malignant melanoma; [...] TOTAL HIP ARTHROPLASTY Left 11/01/2021 Dr. Mckenzie, [facility]. Family History Problem Relation Age of Onset ??? Cancer Other Family history of Cancer, unknown; ??? Arthritis Other Family history of Arthritis; ??? Abdominal Aortic Aneurysm Father ??? COPD Father HOME MEDICATIONS : albuterol HFA (Proventil HFA) 90 mcg/actuation inhaler apixaban (ELIQUIS) 5 mg tablet cetirizine (ZyrTEC) 10 mg tablet cholecalciferol (VITAMIN D-3) 2000 unit tablet felodipine (PLENDIL) 5 mg 24 hr tablet furosemide (LASIX) 40 mg tablet HYDROcodone-acetaminophen (NORCO) 10-325 mg per tablet methocarbamoL (ROBAXIN) 500 mg tablet naloxone (NARCAN) 4 mg/actuation spray,non-aerosol pantoprazole DR (PROTONIX) 20 mg EC tablet polyethylene glycol (MIRALAX) 17 gram packet pramipexole (MIRAPEX) 0.125 mg tablet propranoloL (INDERAL) 20 mg tablet spironolactone (Aldactone) 25 mg tablet cyclobenzaprine (FLEXERIL) 10 mg tablet HYDROcodone-acetaminophen (NORCO) 10-325 mg per tablet methocarbamoL (ROBAXIN) 500 mg tablet metOLazone (ZAROXOLYN) 2.5 mg tablet Review of Systems Review of Systems Constitutional: Negative for activity change and fatigue. HENT: Negative for congestion, ear pain, sinus pressure, sinus pain and trouble swallowing. Eyes: Negative for pain. Respiratory: Negative for shortness of breath and wheezing. Cardiovascular: Negative for chest pain. Gastrointestinal: Negative for abdominal pain, nausea, rectal pain and vomiting. Endocrine: Negative for cold intolerance and heat intolerance. Genitourinary: Negative for flank pain. Musculoskeletal: Positive for arthralgias ( she complains of left hip pain) and back pain (She complains of bilateral low back pain worse on her left-hand side with radiation down left posterior thigh). Negative for myalgias, neck pain and neck stiffness. Skin: Negative for rash. Allergic/Immunologic: Negative for immunocompromised state. Neurological: Positive for weakness ( she reports occasional left thigh weakness). Negative for seizures, numbness ( she reports left thigh tingling) and headaches. Hematological: Does not bruise/bleed easily. Psychiatric/Behavioral: Positive for sleep disturbance ( she reports insomnia secondary to chronic pain). The patient is not nervous/anxious. Physical Exam Vitals: 12/22/21 1427 BP: 142/80 BP Location: Right arm Patient Position: Sitting Pulse: 87 Resp: 16 SpO2: 99% There is no height or weight on file to calculate BMI. Physical Exam Vitals and nursing note reviewed. Constitutional: General: She is awake. Appearance: Normal appearance. She is well-developed and well-groomed. HENT: Head: Normocephalic and atraumatic. Nose: Nose normal. Eyes: Pupils: Pupils are equal, round, and reactive to light. Neck: Trachea: No tracheal deviation. Cardiovascular: Rate and Rhythm: Normal rate and regular rhythm. Pulmonary: Effort: Pulmonary effort is normal. Breath sounds: Normal breath sounds. Musculoskeletal: General: Normal range of motion. Cervical back: Normal range of motion and neck supple. Skin: General: Skin is warm and dry. Neurological: Mental Status: She is alert and oriented to person, place, and time. Psychiatric: Attention and Perception: Attention and perception normal. Mood and Affect: Mood and affect normal. Speech: Speech normal. Behavior: Behavior normal. Behavior is cooperative. Thought Content: Thought content normal. Cognition and Memory: Cognition and memory normal. Judgment: Judgment normal. Gait is within normal limits Toe Stand is bilaterally reduced Heel Stand is bilaterally reduced Low Back: Inspection is clean, dry, and intact, no lesions are noted, no bruising is noted, Palpation produces no pain Percussion produces no pain Lumbar Flexion 70 degrees produces no pain Extension 30 degrees produces no pain Right Lateral Flexion 30 degrees produces no pain Left Lateral Flexion 30 degrees produces no pain Lower Extremity: Motor bilaterally 5/5 equal and intact Sensory bilaterally equal and intact DTR's Patellar Right 0/4 Left 0/4 Achilles Right 0/4 Left 0/4 Straight leg Raise Right 70 degrees produces no pain DFF no change Left 70 degrees produces no pain DFF no change Gaenslen's Test Right negative produces no pain Left negative produces no pain FABERs Test Right negative produces no pain Left negative produces no pain Imaging: There is none of her lumbar spine Review of Data: Checked the [facility] APPLICATION INFRASTRUCTURE ENGINEER sheet and it was consistent with our meds. UDT results: A sample was not obtained. The patient has a prescription for intranasal Narcan for the management of opioid induced respiratory depression or excess sedation. I reviewed the [facility] Prescription Monitoring Program printout and it was consistent and appropriate. The patient denies the use of Tobacco The patient has a diagnosis of hypertension that is managed by her primary care physician. Assessment: Based on the history, and physical exam my impression is the patient has a primary diagnosis of lumbar radiculopathy, lumbago, insomnia secondary chronic pain, long-term use of opiate analgesics, and long-term use of anticoagulant medication. I had an in-depth conversation with Ms. Benedict today and based on the fact that she appears to be doing so much better with the continued participation and working with physical therapy my recommendation is to continue with the current treatment and have her follow-up in 2 months time for a repeat evaluation. In the interim I will provide her a refill of her [place] 10/325, and Robaxin. She denies any questions with regard to the above-mentioned plan, agrees and will continue with physical therapy and follow-up in 2 months time for repeatevaluation. I encouraged her to continue following up with Dr. Mckenzie. 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 I will refill her Robaxin and [place] 10/325. I encouraged her to start physical therapy, and I will have her follow-up in 2 months time for a repeat evaluation. Objective of opioid based therapy is to allow her to continue her activities of daily living with less suffering. No follow-ups on file. Thank you for allowing me to participate in the care of this pleasant patient. 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 documented in this encounter Discontinued Medications Medication Sig Discontinue Reason Start Date End Da te HYDROcodone-acetaminophe n (NORCO) 10-325 mg per tabletIndications:Pain Take 1 tablet by mouth every 4 (four) hours as needed for pain 11/16/2021 12/22/2021 methocarbamoL (ROBAXIN) 500 mg tablet Take 1 tablet (500 mg total) by mouth nightly as needed for muscle spasms Reorder 11/30/2021 12/22/2021 documented as of this encounter Care Teams Internal Audit Senior Manager Relationship Specialty Start Date End Date Pepper Morgan MD PCP - General 09/16/16 Hank Garibay MD [address] [facility] [address] [place] [address] Surgeon Orthopedic Surgery 03/27/17 Jacky Murry MD [address] [place] [address] [address] [place] [address] Ophthalmology 03/27/17 Puma Mckenzie MD [address] [facility] [address] [place] [address] Surgeon Orthopedic Surgery 07/11/19 Neha Jackson PT Physical Therapist Physical Therapy 12/01/21 documented as of this encounter
--- OUTSIDE RECORDS SUMMARY | 2024-06-18 18:56 | XMS_ITS | Encounter Summary ---
Author Organization [facility] Address [address] [place] [address] Care Team Providers Care Scheduler Conveyor Name Role Phone Pepper Morgan MD Primary Care Provider + [phone] Hank Garibay MD Unavailable [phone] Jacky Murry MD Unavailable [phone] Puma Mckenzie MD Unavailable [phone] Neha Jackson PT Unavailable Unavailable Encounter Details Date Type Department Care Team (Late st Contact Info) Description 02/14/2022 9:45 AM CDT Lab [facility] [address] [place] [address] Stalin Arauz MD [address] [place] [address] Peripheral arterial disease (CMS/HCC) (HCC) Discharge Disposition: [...] file 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 Gender Identity Not on file Sexual Orientation Not on file Occupation Industry Job Start Date Job End Date retired Not on file Not on file Not on file documented as of this encounter Discharge Disposition [...] Priority Date/Time Associated Diagnosis Comments EGFR Routine 02/14/2022 9:45 AM CDT Peripheral arterial disease (CMS/HCC) (HCC) DIFFERENTIAL AUTO Routine 02/14/2022 9:4 5 AM CDT Peripheral arterial disease (CMS/HCC) (HCC) CBC WITH AUTO DIFFERENTIAL Routine 02/14/2022 9:45 AM CDT Peripheral arterial disease (CMS/HCC) (HCC) PROTIME-INR Routine 02/14/2022 9:45 AM CDT Peripheral arterial disease (CMS/HCC) (HCC) BASIC METABOLIC PANEL Routine 02/14/2022 9:45 AM CDT Peripheral arterial disease (CMS/HCC) (HCC) documented in this encounter Results * eGFR (02/14/2022 9:45 AM CDT) eGFR 87 mL/min/1. 73 m2 [facility] ([place]) Comment: Interpretive Data Reference Interval Normal [...] interpretive data was last reviewed 2021. Blood 02/14/2022 9:45 AM CDT 02/14/2022 9:58 AM CDT us Stalin Arauz MD LAB BLOOD ORDERABLES Final Resu lt [facility] ([place]) 1 [facility] Department [place] [address] * Differential, auto (02/14/2022 9:45 AM CDT) Neutrophil abs 4.3 1.7 - 6.5 K/cumm [facility] ([place]) Imm gran abs 0.0 0.0 - 0.1 K/cumm [facility] ([place]) Lymphocyte abs 1.0 0.8 - 3.3 K/cumm [facility] ([place]) Monocyte abs 0.6 0.2 - 0.8 K/cumm [facility] ([place]) Eosinophil abs 0.4 0.0 - 0.5 K/cumm [facility] ([place]) Basophil abs 0.1 0.0 - 0.1 K/cumm [facility] ([place]) Neutrophil pct 67.6 % [facility] ([place]) Comment: Interpretive Data Percent cell count reference ranges are not reported, since discordance with absolute values may lead to misinterpretation of CBC data. Current Interpretive Data was last revised on 2017. Imm gran pct 0.5 % [facility] ([place]) Comment: Interpretive Data Percent cell count reference ranges are not reported, since discordance with absolute values may lead to misinterpretation of CBC data. Current Interpretive Data was last revised on 2017. Lymphocyte pct 15.1 % [facility] ([place]) Comment: Interpretive Data Percent cell count reference ranges are not reported, since discordance with absolute values may lead to misinterpretation of CBC data. Current Interpretive Data was last revised on 2017. Monocyte pct 8.8 % [facility] ([place]) Comment: Interpretive Data Percent cell count reference ranges are not reported, since discordance with absolute values may lead to misinterpretation of CBC data. Current Interpretive Data was last revised on 2017. Eosinophil pct 7.0 % [facility] ([place]) Comment: Interpretive Data Percent cell count reference ranges are not reported, since discordance with absolute values may lead to misinterpretation of CBC data. Current Interpretive Data was last revised on 2017. Basophil pct 1.0 % [facility] ([place]) Comment: Interpretive Data Percent cell count reference ranges are not reported, since discordance with absolute values may lead to misinterpretation of CBC data. Current Interpretive Data was last revised on 2017. Blood 02/14/2022 9:45 AM CDT 02/14/2022 9:58 AM CDT us Stalin Arauz MD LAB BLOOD ORDERABLES Final Resu lt [facility] ([place]) 1 [facility] Department [place] [address] * (ABNORMAL) CBC with auto differential (02/14/2022 9:45 AM CDT) Pathologist [facility] WBC 6.3 3.8 - 9.9 K/cumm [facility] ([place]) Hgb 13.4 11.9 - 15.5 g/dL [facility] ([place]) Hct 42.1 35.6 - 45.5 % [facility] ([place]) Plt 281 150 - 400 K/cumm [facility] ([place]) MPV 9.3 9.1 - 12.3 fL [facility] ([place]) RBC 4.95 3.90 - 5.20 M/cumm [facility] ([place]) MCV 85.1 81.3 - 96.4 fL [facility] ([place]) MCH 27.1 27.1 - 33.3 pg [facility] ([place]) MCHC 31.8(L) 32.3 - 35.7 g/dL [facility] ([place]) RDW CV 13.5 11.1 - 14.9 % [facility] ([place]) RDW SD 42.0 35.7 - 48.1 fL [facility] NRBC abs 0.00 0.00 - 0.01 K/cumm [facility] Blood 02/14/2022 9:45 AM CDT 02/14/2022 9:58 AM CDT us Stalin Arauz MD LAB BLOOD ORDERABLES Final Resu lt [facility] ([place]) 1 [facility] Department [place] [address] * Basic metabolic panel (02/14/2022 9:45 AM CDT) [facility] Sodium 137 135 - 145 mmol/L [facility] Potassium, pl 3.8 3.3 - 4.9 mmol/L [facility] ([place]) Chloride 100 97 - 110 mmol/L [facility] ([place]) CO2 31 22 - 32 mmol/L [facility] ([place]) Anion gap 7 2 - 15 mmol/L [facility] ([place]) BUN 15 8 - 25 mg/dL [facility] ([place]) Creatinine 0.64 0.60 - 1.10 mg/dL [facility] ([place]) Glucose 87 70 - 199 mg/dL [facility] ([place]) Comment: Interpretive Data Fasting [...] interpretive data was last revised 2017. Calcium 9.5 8.5 - 10.3 mg/dL [facility] ([place]) Blood 02/14/2022 9:45 AM CDT 02/14/2022 9:58 AM CDT us Stalin Arauz MD LAB BLOOD ORDERABLES Final Resu lt [facility] ([place] 1 [facility] Department of Laboratories [place], [place] [id number] * (ABNORMAL) Protime-INR (02/14/2022 9:45 AM CDT) PT 16.6(H) 9.2 - 13.5 sec [facility] ([place]) INR 1.5(H) 0.9 - 1.2 [facility] ([place]) Comment: Interpretive data Oral anticoagulant therapeutic ranges: Venous thromboembolism prophylaxis or treatment: 2.0-3.0 CARDIOLOGY Standard range: 2.0-3.0 High-intensity range: 2.5-3.5 Refer to indication-specific guidelines for appropriate target ranges for prosthetic heart valve replacement. Current interpretive data was last revised on 2019. Blood 02/14/2022 9:45 AM CDT 02/14/2022 9:58 AM CDT Stalin Arauz MD LAB BLOOD ORDERABLES Final Resu lt [facility] ([place]) 1 [facility] Department [place] [address] documented in this encounter Visit Diagnoses Diagnosis Peripheral arterial disease (HCC) Unspecified peripheral vascular disease documented in this encounter Care Teams Scheduler Conveyor Relationship Specialty Start Date End Date Pepper Morgan MD PCP - General 09/16/16 Hank Garibay MD [address] [facility] [address] [place] [address] Surgeon Orthopedic Surgery 03/27/17 Jacky Murry MD [address] [place] [address] [address] [place] [address] Ophthalmology 03/27/17 Puma Mckenzie MD [address] [place] [address] [address] [place] [address] Surgeon Orthopedic Surgery 07/11/19 Neha Jackson, PT Physical Therapist Physical Therapy 12/01/21 documented as of this encounter
--- OUTSIDE RECORDS SUMMARY | 2024-06-18 18:56 | XMS_ITS | Encounter Summary ---
Author Organization [facility] Address [address] [facility] [address] [place] [address] Care Team Providers Care Hop Worker Name Role Phone Pepper Morgan MD Primary Care Provider + [phone] Hank Garibay MD Unavailable [phone] Jacky Murry MD Unavailable [phone] Puma Mckenzie MD Unavailable [phone] Neha Jackson PT Unavailable Unavailable Reason for Visit * Reason Onset Date Comments update on clonazepam 02/28/2022 Encounter Details Date Type Department Care Team (Late st Contact Info) Description 02/28/2022 Telephone [facility] [address] [place] [phone] Pepper Morgan MD [address] [place] [address] update on clonazepam Social History Tobacco Use Types Packs/Day Years [...] on file 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 Gender Identity Not on file Sexual Orientation Not on file Occupation Industry Job Start Date Job End Date retired Not on file Not on file Not on file documented as of this encounter Miscellaneous Notes * Telephone Encounter - Luis E Washington RN - 03/07/2022 10:58 AM CDT Spoke to Clare Blank'd fax from pharm re: below med ref Questions answered/Rx verified * Telephone Encounter - Luis E [place] RN - 03/02/2022 9:16 AM CDT Noted thanks Pt informed Rx sent * Telephone Encounter - Pepper Morgan MD - 03/01/2022 7:23 PM CDT Unable to cut Klonopin 0.5 mg successfully with half of the pill disintegrating on her. Will plan the oral disintegrating 0.25 mg tablet nightly. We may need to be applying for insurance coverage, they usually do not like to cover oral disintegrating tablet but this is the only size available in his 0.[address] Morgan * Telephone Encounter - Milana Fuentes RN - 03/01/2022 2:25 PM CDT Pt called back and states that the pill cutter cuts one side well and the other side crumbles. She has a bottle of crumbles. Pt would like the 0.25 called into her pharmacy so she can get the correct dose TOKMS:pt would like the clonazepam 0.25 mg called in due the fact that she is not getting the correct dosage Pt states that one side is good and the other side of the pill is crumbles. Please advise * Telephone Encounter - Charity Pinedo LPN - 03/01/2022 11:52 AM CDT LMTR for pt [phone]. ([facility] Rx portal shows pt filled Klonazepam 0.5mg take 1 tablet po q HS #30 on 02/06/22; pt called office and did decrease to 0.5mg - 1/2 tablet q HS on 02/23/22. Therefore, she should have enough on hand to last until approximately 03/20/22 - 03/21/22 taking 1/2 tablet q HS.) Will ask pt if she would like [facility] to just send refills for 0.25mg tablets for next refill. * Telephone Encounter - Charity Pinedo LPN - 02/28/2022 2:55 PM CDT LMTR for pt [phone]. * Telephone Encounter - Vickie Araujo - 02/28/2022 11:32 AM CDT Patient calling to let us know how the clonazepam is working. She cuts them in half at night and sometimes they crumble so she doesn't get the whole pill then she cannot sleep good. If she gets the whole half pill they work fine. Cbn: [phone] documented in this encounter Plan [...] on filedocumented in this encounter Care Teams Hop Worker Relationship Specialty Start Date End Date Pepper Morgan MD PCP - General 09/16/16 Hank Garibay MD [address] [facility] [address] [place] [address] Surgeon Orthopedic Surgery 03/27/17 Jacky Murry MD [address] [facility] [address] [place] [address] Ophthalmology 03/27/17 Puma Mckenzie MD [address] [facility] [address] [place] [address] Surgeon Orthopedic Surgery 07/11/19 Neha Jackson, PT Physical Therapist Physical Therapy 12/01/21 documented as of this encounter
--- OUTSIDE RECORDS SUMMARY | 2024-06-18 18:56 | XMS_ITS | Encounter Summary ---
Author Organization [facility] Address [address] [facility] [address] [place] [address] Care Team Providers Care Fiberglass Dowel Drawing Operator Name Role Phone Pepper Morgan MD Primary Care Provider +- [phone] Hank Garibay MD Unavailable [phone] Jacky Murry MD Unavailable [phone] Puma Mckenzie MD Unavailable [phone] Neha Jackson PT Unavailable Unavailable Reason for Visit * Diagnostic Imaging (Routine) - Closed Specialty Diagnoses / Procedures Referred By Contac t Referred To Contact Diagnoses History of arthroplasty of left knee Procedures XR Knee Left 3 Views Puma Mckenzie MD Phone: tel: [facility] Referral ID Status Reason Start Date Expiration Date Visits Re quested Visits Authorized [id number] Closed 12/16/2021 01/15/2023 1 1 Encounter Details Date Type Department Care Team (Latest Contact Info) Description 12/16/2021 7:43 AM CDT - 12/16/2021 1:51 PM CDT Hospital Encounter [facility] Orthopedics and Sports Medicine [address] [facility] [address], [place] [address] Discharge Disposition: Discharge to home [...] on file 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 Gender Identity Not on file Sexual Orientation [...] Name Priority Date/Time Associated Diagnosis Comments XR KNEE LEFT 3 VIEWS Schedule Routine, Read Routine (OP Routine) 12/16/2021 1:04 PM CDT History of arthroplasty of left knee documented in this encounter Results * XR Knee Left 3 Views (12/16/2021 1:04 PM CDT) Anatomical Region Laterality Modality Lower Extremities, Knee Left Digital Radiography Puma Mckenzie MD IMG XR PROCEDURES Edited Result - Final documented in this encounter Visit Diagnoses Not on filedocumented in this encounter Care Teams Fiberglass Dowel Drawing Operator Relationship Specialty Start Date End Date Pepper Morgan MD PCP - General 09/16/16 Hank Garibay MD [address] [facility] [address] [place] [address] Surgeon Orthopedic Surgery 03/27/17 Jacky Murry MD [address] [facility] [address] [place] [address] Ophthalmology 03/27/17 Puma Mckenzie MD [address] [facility] [address] [place] [address] Surgeon Orthopedic Surgery 07/11/19 Neha Jackson PT Physical Therapist Physical Therapy 12/01/21 documented as of this encounter
--- OUTSIDE RECORDS SUMMARY | 2024-06-18 18:56 | XMS_ITS | Encounter Summary ---
Author Organization [facility] Address [address] [facility] [address] [place] [address] Care Team Providers Care Children'S Service Supervisor Name Role Phone Pepper Morgan MD Primary Care Provider + [phone] Hank Garibay MD Unavailable [phone] Jacky Murry MD Unavailable [phone] Puma Mckenzie MD Unavailable [phone] Reason for Visit * Reason Onset Date Comments Med Refill 2021 Encounter Details Date Type Department Care Team (Late st Contact Info) Description 2021 Telephone [facility] [address] [place] [address] Pepper Morgan MD [address] [place] [address] Med Refill Social History Tobacco Use Types [...] on file 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 Take 30 minutes before furosemide dose. 30 tablet 2021 documented in this encounter Miscellaneous Notes * Telephone Encounter - Cory Mart LPN - 2021 11:03 AM CDT Pt verbalized understanding of new orders. Rx sent to [facility]. Pt stated that she will keep track of BP and has not been dizzy or lightheaded. Pt verbalized understanding of holding medication is swelling is gone. metOLazone (ZAROXOLYN) 2.5 mg tablet ??TAKE ONE TAB PO MON, WED, FRI. Take 30 minutes before furosemide dose., Normal * Telephone Encounter - Jacqueline Fuller NP - 2021 9:56 AM CDT Have her change the metolazone to M, W, F can send rx for such and then can re- evaluate at her follow up in a couple weeks. Make sure her BP is stable and she is not dizzy or light headed. If swelling resolves between now and next visit can hold the metolazone all together. * Telephone Encounter - Viviana Webster - 2021 9:23 AM CDT Pt was prescribed Metolazone 2.5 mg tablets and was to take for another week or two. Swelling is going down and is almost gone now. Wants to know if Jacqueline wants her to still take this medication andget a refill since she only has 2 pills left. ZOHAIB Sparks. Wants a nurse to call. documented in this encounter Plan of Treatment Not on file documented as of this encounter Visit Diagnoses Diagnosis Left leg swelling documented in this encounter Discontinued Medications Medication Sig Discontinue Reason Start Date End Da te metOLazone (ZAROXOLYN) 2.5 mg tabletIndications:Left leg swelling [The details of the medication are not available because there are pending changes by a home health clinician.] Reorder 11/11/2021 2021 documented as of this encounter Care Teams Children'S Service Supervisor Relationship Specialty Start Date End Date Pepper Morgan MD PCP - General 09/16/16 Hank Garibay MD [address] [facility] [address] [place] [address] Surgeon Orthopedic Surgery 03/27/17 Jacky Murry MD [address] [place] [address] [address] [place] [address] Ophthalmology 03/27/17 Puma Mckenzie MD [address] [place] [address] [address] [place] [address] Surgeon Orthopedic Surgery 07/11/19 documented as of this encounter
--- OUTSIDE RECORDS SUMMARY | 2024-06-18 18:56 | XMS_ITS | Encounter Summary ---
Author Organization [facility] Address [address] [facility] [address] [place] [address] Care Team Providers Care Field Nurse Case Manager Name Role Phone Pepper Morgan MD Primary Care Provider [phone] Hank Garibay MD Unavailable [phone] Jacky Murry MD Unavailable [phone] Puma Mckenzie MD Unavailable [phone] Neha Jackson PT Unavailable Unavailable Reason for Visit * Reason Comments Peripheral Vascular Disease * Consultation (Routine) - Closed Specialty Diagnoses / Procedures Referred By Contac t Referred To Contact Cardiology Diagnoses Peripheral arterial disease (HCC) Pepper Morgan MD Phone: tel: fax: Stalin Arauz MD [address] [place] [address] Phone: tel: fax: Referral ID Status Reason Start Date Expiration Date V isits Requested Visits Authorized [id number] Closed Specialty Services Required 01/24/2022 02/23/2023 1 1 Encounter Details Date Type Department Care Team (Late st Contact Info) Description 02/07/2022 12:30 PM CDT Office Visit [place] [employer] [facility] at [address] [place] [address] Stalin Arauz MD [address] [place] [address] [address] [place] [address] Paroxysmal atrial fibrillation (CMS/HCC) (HCC) (Primary Dx); Peripheral arterial disease (CMS/HCC) (HCC); 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 Social History Tobacco [...] file 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 Gender Identity Not on file Sexual Orientation Not on file Occupation Industry Job Start Date Job End Date retired Not on file Not on file Not on file documented as of this encounter Last Filed Vital Signs Vital Sign Reading Time Taken Comments Blood Pressure 140/85 02/07/2022 12:21 PM CDT Pulse 66 02/07/2022 12:21 PM CDT Temperature - - Respiratory Rate 16 02/07/2022 12:21 PM CDT Oxygen Saturation - - Inhaled Oxygen Concentration - - Weight 88.5 kg (195 lb) 02/07/2022 12:21 PM CDT Height 152.4 cm (5') 02/07/2022 12:21 PM CDT Body Mass Index 38.08 02/07/2022 12:21 PM CDT documented in this encounter Progress Notes * Stalin Arauz MD - 02/07/2022 12:30 PM [...] 09/2008 ??? CHF (congestive heart failure) (CMS/HCC) ([facility]) ??? Cough ??? DVT (deep venous thrombosis) (CMS/HCC) ([facility]) 1976 upper left arm near elbow--- ??? [...] ARTHROSCOPY Arthroscopy knee ??? OTHER SURGICAL HISTORY 1992 strangulated hernia: hernia repair ??? OTHER SURGICAL HISTORY 2003 Cancer, basal Cell: resection with skin graft ??? REPLACEMENT TOTAL KNEE Left 02/07/2017 Dr. Meier ??? REPLACEMENT TOTAL KNEE Right ??? TOTAL HIP ARTHROPLASTY Right 06/2019 The successful right hip replacement Dr. Mckenzie ??? TOTAL HIP ARTHROPLASTY Left 11/01/2021 Dr. Mckenzie, [facility]. Family History Problem Relation Age of Onset ??? Cancer Other Family history of Cancer, unknown; ??? Arthritis Other Family history of Arthritis; ??? Abdominal Aortic Aneurysm Father ??? COPD Father Social History Tobacco Use ??? Smoking status: Former Smoker Packs/day: 2.00 Years: 30.00 Pack years: 60.00 Quit date: 1981 Years since quittin.6 ??? Smokeless tobacco: Never [...] as of this encounter Visit Diagnoses Diagnosis Paroxysmal atrial fibrillation (CMS/HCC) (HCC)- Primary Atrial fibrillation Peripheral arterial disease (HCC) Unspecified peripheral vascular disease 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 Essential hypertension, benign documented in this encounter Orders Outpatient Referral Count Last Ordered Date Fir st Ordered Date AMB REFERRAL TO CARDIOLOGY 1 02/07/2022 documented in this encounter Care Teams Field Nurse Case Manager Relationship Specialty Start Date End Date Pepper Morgan MD PCP - General 09/16/16 Hank Garibay MD [address] [facility] [address] [place] [address] Surgeon Orthopedic Surgery 03/27/17 Jacky Murry MD [address] [facility] [address] [place] [address] Ophthalmology 03/27/17 Puma Mckenzie MD [address] [facility] [address] [place] [address] Surgeon Orthopedic Surgery 07/11/19 Neha Jackson, PT Physical Therapist Physical Therapy 12/01/21 documented as of this encounter
--- OUTSIDE RECORDS SUMMARY | 2024-06-18 18:56 | XMS_ITS | Encounter Summary ---
Author Organization [facility] Address [address] [facility] [address] [place] [address] Care Team Providers Care Fishing Vessel Operator Name Role Phone Pepper Morgan MD Primary Care Provider + [phone] Hank Garibay MD Unavailable [phone] Jacky Murry MD Unavailable [phone] Puma Mckenzie MD Unavailable [phone] Neha Jackson PT Unavailable Unavailable Reason for Visit * Reason Onset Date Comments clonazepam giving her problems 02/23/2022 Encounter Details Date Type Department Care Team (Late st Contact Info) Description 02/23/2022 Telephone [facility] [address] [place] [address] Pepper Morgan MD [address] [place] [address] clonazepam giving her problems Social History Tobacco Use Types Packs/Day Years [...] on file 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 She will cut the Klonopin in half starting tonight et call back with progress or if she needs appt. She thanked me for calling. * Telephone Encounter - Katy Lopes RN - 02/23/2022 2:18 PM CDT Left message to return call. * Telephone Encounter - Corazon Grullon MD - 02/23/2022 12:43 PM CDT Unlikely that anaesthesia from last week is causing patient grogginess. This is a common side effect of Klonopin. Patient can try splitting tablet in half and seeing if side effect improves. Otherwise can f/u with pcp if it persists. Thanks * Telephone Encounter - Katy Lopes RN - 02/23/2022 10:35 AM CDT TOWDF for KMS patient: Called patient regarding clonazepam. Patient said it has been working well for her but she has been tired also during the day and falling asleep in her recliner. Patient said she is feeling groggy all day. Patient had a cardiac cath last week and stents placed and she wondered if the anesthesia could still be in her system and that is what is making her tired Patient did contact Dr. Arauz's office but said she really did not get an answer from them about this. Please advise. * Telephone Encounter - Vickie Araujo - 02/23/2022 8:22 AM CDT Patient calling the klalanzepam is working good for her but she falls asleep in the chair and she sleeps all day. Also it just makes her groggy all day. She is like a zombie and has to force herself to everything. She just had four stints in her leg and it is hard for her to walk. Cbn: [phone] documented in this encounter Plan of Treatment [...] on filedocumented in this encounter Care Teams Fishing Vessel Operator Relationship Specialty Start Date End Date Pepper Morgan MD PCP - General 09/16/16 Hank Garibay MD [address] [place] [address] [place] [address] Surgeon Orthopedic Surgery 03/27/17 Jacky Murry MD [address] [facility] [address] [place] [address] Ophthalmology 03/27/17 Puma Mckenzie MD [address] [facility] [address] [place] [address] Surgeon Orthopedic Surgery 07/11/19 Neha Jackson, KEVIN Physical Therapist Physical Therapy 12/01/21 documented as of this encounter
--- OUTSIDE RECORDS SUMMARY | 2024-06-18 18:56 | XMS_ITS | Encounter Summary ---
Author Organization [facility] Address [address] [place] [address] Care Team Providers Care Manager Of Product Name Role Phone Pepper Morgan MD Primary Care Provider [phone] Hank Garibay MD Unavailable [phone] Jacky Murry MD Unavailable [phone] Puma Mckenzie MD Unavailable [phone] Neha Jackson PT Unavailable Unavailable Reason for Referral * Diagnostic Imaging (Routine) - Closed Specialty Diagnoses / Procedures Referred By Contac t Referred To Contact Diagnoses Peripheral arterial disease (HCC) Procedures US JONATHAN Stalin Matt MD [address] [place] [address] [address] [place] [address] Phone: tel: fax: [address] [address] Referral ID Status Reason Start Date Expiration Date Visits Re quested Visits Authorized [id number] Closed 03/24/2022 04/23/2023 1 1 Reason for Visit * Diagnostic Imaging (Routine) - Closed Specialty Diagnoses / Procedures Referred By Contac t Referred To Contact Diagnoses Peripheral arterial disease (HCC) Procedures US JONATHAN Stalin Matt MD [address] [place] [address] [address] [facility] [place] [address] Phone: tel: fax: [address] [address] Referral ID Status Reason Start Date Expiration Date Visits Re quested Visits Authorized [id number] Closed 03/24/2022 04/23/2023 1 1 Encounter Details Date Type Department Care Team (Latest Contact Info) Description 04/11/2022 10:59 AM CDT - 04/11/2022 11:59 PM CDT Hospital Encounter [facility] [address] [place] [address] Peripheral arterial disease (CMS/HCC) (HCC) Discharge Disposition: [...] on file 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 Gender Identity Not on file [...] nightly 90 tablet 3 2 12/09/19 23 cilostazoL (PLETAL) 50 mg tabletIndications:I ntermittent Claudication Take 1 tablet (50 mg total) by mouth 2 (two) times a day 180 tablet 3 2 04/18/20 22 clonazePAM (KlonoPIN) 0.25 mg disintegrating tabletIndications:R estless [...] daily 90 tablet 1 2 06/08/[address] (PROTONIX) 20 mg EC [...] JONATHAN Schedule Routine, Read Routine (OP Routine) 04/11/2022 11:28 AM CDT Peripheral arterial disease (CMS/HCC) (HCC) documented in this encounter Results * US JONATHAN (04/11/2022 11:28 AM CDT) Anatomical Region Laterality Modality Vascular N/A Ultrasound 04/11/2022 11:0 6 AM CDT Narrative 04/11/2022 11:36 AM CDT [address] [place] [address] Ankle Brachial Index Report Patient Name: TESS KOO ?? : 1935 (86y 4m) ??Gender: F Study Date: 04/11/2022 11:06:00 AM Optic Fibre Drawer: Order Provider: STALIN MATT Quality: Adequate Ref.Provider: STALIN MATT Procedures: Arterial Report: A bilateral extremities ankle/brachial index was performed. Indications: Post-Op vascular surgery Conclusions: 1. There is moderate arterial disease in the right lower extremity, JONATHAN 0.59, monophasic wave form. 2. There is mild arterial disease in the left lower extremity, JONATHAN 0.82, monophasic wave form. Findings: Measurements: RightValueLeftValue Electronically Signed By: Eric Bashir 2022-04-11 11:36:45 CDT Procedure Note Eric Bashir MD - 04/11/[address] [address] Ankle Brachial Index Report Patient Name: TESS KOOPatient ID: [id number] : 1935 (86y 4m) Gender: FStudy Date: 04/11/2022 11:06:00 AM Order Provider: STALIN MATTQuality: Adequate Ref.Provider: STALIN MATT Procedures: Arterial Report: A bilateral extremities ankle/brachial index wasperformed. Indications: Post-Op vascular surgery Conclusions: 1. There is moderate arterial disease in the right lower extremity, ABI0.59, monophasic wave form. 2. There is mild arterial disease in the left lower extremity, JONATHAN 0.82,monophasic wave form. Findings: Measurements: RightValueLeftValue Electronically Signed By: Eric Bashir 2022-04-11 11:36:45 CDT us Stalin Matt MD [facility] [place] PROCEDURES Final Result documented in this encounter Visit Diagnoses Diagnosis Peripheral arterial disease (HCC) Unspecified peripheral vascular disease documented in this encounter Care Teams Manager Of Product Relationship Specialty Start Date End Date Pepper Morgan MD PCP - General 09/16/16 Hank Garibay MD [address] [facility] [address] [place] [address] Surgeon Orthopedic Surgery 03/27/17 Jacky Murry MD [address] [facility] [address] [place] [address] Ophthalmology 03/27/17 Puma Mckenzie MD [address] [facility] [address] [place] [address] Surgeon Orthopedic Surgery 07/11/19 Neha Jackson, PT Physical Therapist Physical Therapy 12/01/21 documented as of this encounter
--- OUTSIDE RECORDS SUMMARY | 2024-06-18 18:56 | XMS_ITS | Encounter Summary ---
Author Organization [facility] Address [address] [facility] [address] [place] [id number] Care Team Providers Care Swage Toolsetter Name Role Phone Pepper Morgan MD Primary Care Provider + [phone] Hank Garibay MD Unavailable [phone] Jacky Murry MD Unavailable [phone] Puma Mckenzie MD Unavailable [phone] Neha Jackson PT Unavailable Unavailable Reason for Visit * Reason Comments Follow-up 2 week Encounter Details Date Type Department Care Team (Latest Contact Info) Description 12/06/2021 1:[address]T Office Visit [facility] [address] [place] [id number] Jacqueline Fuller NP [address] [place] [address] Lymphedema (Primary Dx); Tremor Social History Tobacco Use Types Packs/Day Years [...] file 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 Gender Identity Not on file Sexual Orientation Not on file Occupation Industry Job Start Date Job End Date retired Not on file Not on file Not on file documented as of this encounter Last Filed Vital Signs Vital Sign Reading Time Taken Comments Blood Pressure 110/60 12/06/2021 1:13 PM CDT Pulse 93 12/06/2021 1:13 PM CDT Temperature 36.6 ??C (97.8 ??F) 12/06/2021 1:13 PM CD T Respiratory Rate 12 12/06/2021 1:13 PM CDT Oxygen Saturation 98% 12/06/2021 1:13 PM CDT Inhaled Oxygen Concentration - - Weight 85.3 kg (188 lb) 12/06/2021 1:13 PM CDT Height - - Body Mass Index 36.72 11/11/2021 1:40 PM CDT documented in this encounter Patient Instructions * Patient Instructions* Jacqueline Fuller NP - 12/06/2021 1:46 PM CDT Orders for [facility] STAFF to arrange No new labs or orders Orders for Tess Benedict to arrange Please continue with current medications as prescribed Please avoid excess salt in the diet Continue with compression as you are able during the day Keep the leg elevated at rest If you develop increasing pain or swelling call us Return for Next scheduled follow up. No orders of the defined types were placed in this encounter. A brief review of all your problems, medications, and orders from today ICD-9-CM ICD-10-CM 1. Lymphedema 457.1 I89.0 2. Tremor 781.0 R25.1 PLEASE BRING IN ALL PILL BOTTLES TO EVERY OFFICE VISIT, THIS IS ESSENTIAL FOR ACCURATE REFILLS AND MAINTAINING AN ACCURATE MEDICATION LIST. documented in this encounter Progress Notes * Jacqueline Fuller NP - 12/06/2021 1:30 PM CDT ASSESSMENT AND PLAN Patient Instructions Orders for [facility] STAFF to arrange No new labs or orders Orders for Tess Benedict to arrange Please continue with current medications as prescribed Please avoid excess salt in the diet Continue with compression as you are able during the day Keep the leg elevated at rest If you develop increasing pain or swelling call us Return for Next scheduled follow up. No orders of the defined types were placed in this encounter. A brief review of all your problems, medications, and orders from today ICD-9-CM ICD-10-CM 1. Lymphedema 457.1 I89.0 2. Tremor 781.0 R25.1 PLEASE BRING IN ALL PILL BOTTLES TO EVERY OFFICE VISIT, THIS IS ESSENTIAL FOR ACCURATE REFILLS AND MAINTAINING AN ACCURATE MEDICATION LIST. CHIEF COMPLAINT Follow-up (2 week) HISTORY OF PRESENT ILLNESS Tess Benedict comes to the office today for follow up on LLE. She feels it is much improved. She has been without metolazone for over a week. She has been using compression stocking. She has beenhaving more tremors recently. She notices since surgery has been worse. She states have trouble holding your fork at times. She reports has 2 cups of caffienated coffee in am. Tremors are worse with rushing around. Discussion of symptoms and my assessment and plan: 1. Lymphedema Patient returns for follow up on LLE edema that developed post operatively. She has had reduction in swelling with addition of metolazone. She has been off over a week now and edema remains stable asdoes her weight. She did have CTA which showed PAD, which may contribute, but she is asymptomatic in that regard and did have 3 vessel distal run off. Have recommended at this time that she avoid exce ss salt, use daily compression and continue current diuretic therapy. She will follow up in January or sooner if needed. 2. Tremor Patient has bilateral tremors of the hands, that seem to have worsened post operatively. She is taking inderal and mirapex as directed. Offered referral to neurology as current therapies ineffective declined at this time. SOCIAL HISTORY Social History Tobacco Use ??? Smoking status: Former Smoker Packs/day: 2.00 Years: 30.00 Pack years: 60.00 Quit date: 1981 Years since quittin.4 ??? Smokeless tobacco: Never Used Substance Use Topics ??? Alcohol use: Not Currently REVIEW OF SYSTEMS Review of Systems Constitutional: Negative for chills and fever. Respiratory: Negative for chest tightness and shortness of breath. Cardiovascular: Positive for leg swelling. Negative for chest pain and palpitations. Gastrointestinal: Negative for constipation, diarrhea, nausea and vomiting. Genitourinary: Negative for difficulty urinating. Neurological: Positive for tremors. MEDICATIONS CHANGED / CLEANED UP THIS VISIT Medications Discontinued During This Encounter Medication Reason ??? metOLazone (ZAROXOLYN) 2.5 mg tablet ??? cyclobenzaprine (FLEXERIL) 10 mg tablet MEDICATION LIST AT CONCLUSION OF THIS VISIT Current Outpatient Medications Ordered in [facility] Medication Sig Dispense Refill ??? albuterol HFA [...] Take 2,000 Units by mouth daily ??? felodipine (PLENDIL) 5 mg 24 hr tablet Take 1 tablet (5 mg total) by mouth daily 90 tablet 1 ??? furosemide (LASIX) 40 mg tablet Take 1 tablet (40 mg total) by mouth daily 90 tablet 1 ??? HYDROcodone-acetaminophen (NORCO) 10-325 mg per tablet Take 1 tablet by mouth every 4 (four) hours as needed for pain 90 tablet 0 ??? methocarbamoL (ROBAXIN) 500 mg tablet Take 1 tablet (500 mg total) by mouth nightly as needed for muscle spasms 30 tablet 0 ??? naloxone (NARCAN) 4 mg/actuation spray,non-aerosol Administer 1 spray into affected nostril(s) as needed for opioid reversal or respiratory depression Call 911. Administer a single spray in one nostril. Repeat every 3 minutes as needed if no or minimal response. 1 each 0 ??? ondansetron ODT (ZOFRAN-ODT) 4 mg disintegrating tablet Take 1 tablet (4 mg total) by mouth every 6 (six) hours as needed for nausea or vomiting 20 tablet 2 ??? pantoprazole DR (PROTONIX) 20 mg EC tablet Take 1 tablet (20 mg total) by mouth daily With the largest meal 90 tablet 1 ??? polyethylene glycol (MIRALAX) 17 gram packet Take 1 packet (17 g total) by mouth daily (Patienttaking differently: Take 17 g by mouth daily as needed) ??? pramipexole (MIRAPEX) 0.125 mg tablet Take 1 tablet (0.125 mg total) by mouth 3 (three) times aday Take at 9:00 a.m., 3:00 p.m., 9:00 p.m. 270 tablet 1 ??? propranoloL (INDERAL) 20 mg tablet Take 1 tablet (20 mg total) by mouth 2 (two) times a day as needed (Tremor) 180 tablet 1 ??? senna-docusate (Senna-S) 8.6-50 mg Take 1 tablet by mouth daily (Patient taking differently: Take 2 tablets by mouth every evening) 90 tablet 1 ??? spironolactone (Aldactone) 25 mg tablet Take 0.5 tablets (12.5 mg total) by mouth daily Take 1/2 tablet daily (Patient taking differently: Take 25 mg by mouth daily Take 1/2 tablet daily) 50 tablet 1 No current Epic-ordered facility-administered medications on file. ALLERGIES is allergic to celecoxib, scopolamine, sulfa (sulfonamide antibiotics), amlodipine, lisinopril, trazodone, cymbalta [duloxetine], and sinemet [carbidopa-levodopa]. PHYSICAL EXAM body mass index is 36.72 kg/m??. Vitals: 12/06/21 1313 BP: 110/60 BP Location: Left arm Patient Position: Sitting Pulse: 93 Resp: 12 Temp: 36.6 ??C (97.8 ??F) TempSrc: Temporal SpO2: 98% Weight: 85.3 kg (188 lb) Physical Exam Vitals and nursing note reviewed. Constitutional: Appearance: Normal appearance. HENT: Head: Normocephalic and atraumatic. Cardiovascular: Rate and Rhythm: Normal rate and regular rhythm. Heart sounds: Normal heart sounds. Pulmonary: Effort: Pulmonary effort is normal. Breath sounds: Normal breath sounds. Musculoskeletal: Left lower le+ Edema present. Skin: General: Skin is warm and dry. Neurological: Mental Status: She is alert and oriented to person, place, and time. Motor: Tremor present. Gait: Gait abnormal (uses walker for ambulation ). Psychiatric: Mood and Affect: Mood normal. Behavior: Behavior normal. Follow-up examination was completed today and specifics [...] with her in the After Visit Summary. BHUPENDRA Leblanc-JUSTINE THE FOLLOWING CLERICAL INFORMATION DOES NOT DUE TO BE SENT IN A PRINTED DOCUMENT BLOOD WORK REVIEWED WITH Tess Benedict TODAY Office Visit on 11/19/2021 Component Date Value Ref Range Status ??? Glucose 12/01/2021 83 65 - 139 mg/dL Final ??? BUN 12/01/2021 19 7 - 25 mg/dL Final ??? Creatinine 12/01/2021 0.72 0.60 - 0.88 mg/dL Final ? ? eGFR NON-AFR. KYRGYZ 12/01/2021 77 > OR = 60 mL/min/1.73m2 Final ? ? EGFR 12/01/2021 89 > OR = 60 mL/min/1.73m2 Final ??? BUN/creat ratio 12/01/2021 NOT APPLICABLE (calc) Final ??? Sodium 12/01/2021 133 (A) 135 - 146 mmol/L Final ??? Potassium, pl 12/01/2021 4.1 3.5 - 5.3 mmol/L Final ??? Chloride 12/01/2021 94 (A) 98 - 110 mmol/L Final ??? CO2 12/01/2021 33 (A) 20 - 32 mmol/L Final ??? Calcium 12/01/2021 9.1 8.6 - 10.4 mg/dL Final Office Visit on 11/11/2021 Component Date Value Ref Range Status ??? Glucose 11/12/2021 91 65 - 99 mg/dL Final ??? BUN 11/12/2021 17 7 - 25 mg/dL Final ??? Creatinine 11/12/2021 0.65 0.60 - 0.88 mg/dL Final ? ? eGFR NON-AFR. KYRGYZ 11/12/2021 82 > OR = 60 mL/min/1.73m2 Final ? ? EGFR 11/12/2021 95 > OR = 60 mL/min/1.73m2 Final ??? BUN/creat ratio 11/12/2021 NOT APPLICABLE (calc) Final ??? Sodium 11/12/2021 134 (A) 135 - 146 mmol/L Final ??? Potassium, pl 11/12/2021 4.8 3.5 - 5.3 mmol/L Final ??? Chloride 11/12/2021 93 (A) 98 - 110 mmol/L Final ??? CO2 11/12/2021 31 20 - 32 mmol/L Final ??? Calcium 11/12/2021 9.5 8.6 - 10.4 mg/dL Final ??? WBC 11/12/2021 9.9 3.8 - 10.8 Thousand/uL Final ??? RBC, POC 11/12/2021 4.13 3.80 - 5.10 Million/uL Final ??? Hgb 11/12/2021 11.4 (A) 11.7 - 15.5 g/dL Final ??? Hct 11/12/2021 35.8 35.0 - 45.0 % Final ??? MCV 11/12/2021 86.7 80.0 - 100.0 fL Final ??? MCH 11/12/2021 27.6 27.0 - 33.0 pg Final ??? MCHC 11/12/2021 31.8 (A) 32.0 - 36.0 g/dL Final ??? Rdw 11/12/2021 14.1 11.0 - 15.0 % Final ??? Platelets 11/12/2021 584 (A) 140 - 400 Thousand/uL Final ??? MPV 11/12/2021 9.1 7.5 - 12.5 fL Final ??? Neutrophils, abs 11/12/2021 7,613 1,500 - 7,800 cells/uL Final ??? Lymphocytes, abs 11/12/2021 1,030 850 - 3,900 cells/uL Final ??? Monocyte abs 11/12/2021 713 200 - 950 cells/uL Final ??? Eosinophils, abs 11/12/2021 465 15 - 500 cells/uL Final ??? Basophils, abs 11/12/2021 79 0 - 200 cells/uL Final ??? Neutrophils 11/12/2021 76.9 % Final ??? Lymphocyte pct 11/12/2021 10.4 % Final ??? Monocytes 11/12/2021 7.2 % Final ??? Eosinophils 11/12/2021 4.7 % Final ??? Basophils 11/12/2021 0.8 % Final Admission on 11/08/2021, Discharged on 11/09/2021 Component Date Value Ref Range Status ??? WBC 11/08/2021 7.9 3.8 - 9.9 K/cumm Final ??? Hgb 11/08/2021 11.2 (A) 11.9 - 15.5 g/dL Final ??? Hct 11/08/2021 34.7 (A) 35.6 - 45.5 % Final ??? Plt 11/08/2021 428 (A) 150 - 400 K/cumm Final ??? MPV 11/08/2021 9.2 9.1 - 12.3 fL Final ??? RBC 11/08/2021 4.01 3.90 - 5.20 M/cumm Final ??? MCV 11/08/2021 86.5 81.3 - 96.4 fL Final ??? MCH 11/08/2021 27.9 27.1 - 33.3 pg Final ??? MCHC 11/08/2021 32.3 32.3 - 35.7 g/dL Final ??? RDW CV 11/08/2021 14.7 11.1 - 14.9 % Final ??? RDW SD 11/08/2021 46.9 35.7 - 48.1 fL Final ??? NRBC abs 11/08/2021 0.00 0.00 - 0.01 K/cumm Final ??? Sodium 11/08/2021 129 (A) 135 - 145 mmol/L Final ??? Potassium, pl 11/08/2021 4.4 3.3 - 4.9 mmol/L Final ??? Chloride 11/08/2021 90 (A) 97 - 110 mmol/L Final ??? CO2 11/08/2021 32 22 - 32 mmol/L Final ??? Anion gap 11/08/2021 8 2 - 15 mmol/L Final ??? BUN 11/08/2021 20 8 - 25 mg/dL Final ??? Creatinine 11/08/2021 0.84 0.60 - 1.10 mg/dL Final ??? Glucose 11/08/2021 119 70 - 199 mg/dL Final ??? Calcium 11/08/2021 9.0 8.5 - 10.3 mg/dL Final ??? Bilirubin, total 11/08/2021 0.4 0.1 - 1.2 mg/dL Final ??? Protein, pl 11/08/2021 6.6 6.5 - 8.5 g/dL Final ??? Albumin 11/08/2021 3.5 3.5 - 5.0 g/dL Final ??? Alk phos 11/08/2021 142 (A) 40 - 130 Units/L Final ??? ALT 11/08/2021 16 7 - 45 Units/L Final ??? AST 11/08/2021 23 10 - 45 Units/L Final ? ? D-Dimer 11/08/2021 1,417 (A) <=499 ng/mL FEU Final ??? Neutrophil abs 11/08/2021 5.3 1.7 - 6.5 K/cumm Final ??? Imm gran abs 11/08/2021 0.2 (A) 0.0 - 0.1 K/cumm Final ??? Lymphocyte abs 11/08/2021 1.2 0.8 - 3.3 K/cumm Final ??? Monocyte abs 11/08/2021 0.7 0.2 - 0.8 K/cumm Final ??? Eosinophil abs 11/08/2021 0.5 0.0 - 0.5 K/cumm Final ??? Basophil abs 11/08/2021 0.1 0.0 - 0.1 K/cumm Final ??? Neutrophil pct 11/08/2021 67.8 % Final ??? Imm gran pct 11/08/2021 2.2 % Final ??? Lymphocyte pct 11/08/2021 14.9 % Final ??? Monocyte pct 11/08/2021 8.5 % Final ??? Eosinophil pct 11/08/2021 6.0 % Final ??? Basophil pct 11/08/2021 0.6 % Final ??? eGFR 11/08/2021 69 mL/min/1.73 m2 Final ??? CK 11/09/2021 114 30 - 200 Units/L Final ??? Lactate 11/09/2021 0.9 0.7 - 2.0 mmol/L Final ? ? NT-proBNP 11/09/2021 2,821 (A) <=450 pg/mL Final ??? Sodium 11/09/2021 129 (A) 135 - 145 mmol/L Final ??? Potassium, pl 11/09/2021 4.3 3.3 - 4.9 mmol/L Final ??? Chloride 11/09/2021 89 (A) 97 - 110 mmol/L Final ??? CO2 11/09/2021 31 22 - 32 mmol/L Final ??? Anion gap 11/09/2021 9 2 - 15 mmol/L Final ??? BUN 11/09/2021 19 8 - 25 mg/dL Final ??? Creatinine 11/09/2021 0.74 0.60 - 1.10 mg/dL Final ??? Glucose 11/09/2021 123 70 - 199 mg/dL Final ??? Calcium 11/09/2021 9.3 8.5 - 10.3 mg/dL Final ??? eGFR 11/09/2021 80 mL/min/1.73 m2 Final Admission on 11/01/2021, Discharged on 11/03/2021 Component Date Value Ref Range Status ??? Potassium, bld 11/01/2021 4.1 3.3 - 4.9 mmol/L Final ??? PT 11/01/2021 12.6 9.5 - 13.6 sec Final ??? INR 11/01/2021 1.1 0.9 - 1.2 Final ??? aPTT 11/01/2021 33 27 - 37 sec Final ??? Sodium 11/02/2021 134 (A) 135 - 145 mmol/L Final ??? Potassium, pl 11/02/2021 4.2 3.3 - 4.9 mmol/L Final ??? Chloride 11/02/2021 101 97 - 110 mmol/L Final ??? CO2 11/02/2021 27 22 - 32 mmol/L Final ??? Anion gap 11/02/2021 6 2 - 15 mmol/L Final ??? BUN 11/02/2021 12 8 - 25 mg/dL Final ??? Creatinine 11/02/2021 0.64 0.60 - 1.10 mg/dL Final ??? Glucose 11/02/2021 122 70 - 199 mg/dL Final ??? Calcium 11/02/2021 8.6 8.5 - 10.3 mg/dL Final ??? WBC 11/02/2021 13.8 (A) 3.8 - 9.9 K/cumm Final ??? Hgb 11/02/2021 11.9 11.9 - 15.5 g/dL Final ??? Hct 11/02/2021 37.5 35.6 - 45.5 % Final ??? Plt 11/02/2021 239 150 - 400 K/cumm Final ??? MPV 11/02/2021 9.1 9.1 - 12.3 fL Final ??? RBC 11/02/2021 4.34 3.90 - 5.20 M/cumm Final ??? MCV 11/02/2021 86.4 81.3 - 96.4 fL Final ??? MCH 11/02/2021 27.4 27.1 - 33.3 pg Final ??? MCHC 11/02/2021 31.7 (A) 32.3 - 35.7 g/dL Final ??? RDW CV 11/02/2021 14.4 11.1 - 14.9 % Final ??? RDW SD 11/02/2021 45.7 35.7 - 48.1 fL Final ??? NRBC abs 11/02/2021 0.00 0.00 - 0.01 K/cumm Final ??? eGFR 11/02/2021 88 mL/min/1.73 m2 Final ??? Sodium 11/03/2021 135 135 - 145 mmol/L Final ??? Potassium, pl 11/03/2021 4.0 3.3 - 4.9 mmol/L Final ??? Chloride 11/03/2021 101 97 - 110 mmol/L Final ??? CO2 11/03/2021 26 22 - 32 mmol/L Final ??? Anion gap 11/03/2021 8 2 - 15 mmol/L Final ??? BUN 11/03/2021 14 8 - 25 mg/dL Final ??? Creatinine 11/03/2021 0.54 (A) 0.60 - 1.10 mg/dL Final ??? Glucose 11/03/2021 120 70 - 199 mg/dL Final ??? Calcium 11/03/2021 9.2 8.5 - 10.3 mg/dL Final ??? WBC 11/03/2021 11.0 (A) 3.8 - 9.9 K/cumm Final ??? Hgb 11/03/2021 11.4 (A) 11.9 - 15.5 g/dL Final ??? Hct 11/03/2021 35.1 (A) 35.6 - 45.5 % Final ??? Plt 11/03/2021 214 150 - 400 K/cumm Final ??? MPV 11/03/2021 9.4 9.1 - 12.3 fL Final ??? RBC 11/03/2021 4.08 3.90 - 5.20 M/cumm Final ??? MCV 11/03/2021 86.0 81.3 - 96.4 fL Final ??? MCH 11/03/2021 27.9 27.1 - 33.3 pg Final ??? MCHC 11/03/2021 32.5 32.3 - 35.7 g/dL Final ??? RDW CV 11/03/2021 14.6 11.1 - 14.9 % Final ??? RDW SD 11/03/2021 45.8 35.7 - 48.1 fL Final ??? NRBC abs 11/03/2021 0.00 0.00 - 0.01 K/cumm Final ??? eGFR 11/03/2021 91 mL/min/1.73 m2 Final Lab on 10/25/2021 Component Date Value Ref Range Status ??? Color, ur 10/25/2021 Yellow Yellow Final ??? Clarity, ur 10/25/2021 Clear Clear Final ??? Specific gravity, ur 10/25/2021 1.010 1.003 - 1.030 Final ??? pH, urine 10/25/2021 6.0 Final ??? Protein, ur ql 10/25/2021 Negative Negative Final ??? Glucose, ur ql 10/25/2021 Negative Negative Final ??? Ketones, ur 10/25/2021 Negative Negative Final ??? Bilirubin, ur 10/25/2021 Negative Negative Final ??? Blood, ur 10/25/2021 Negative Negative Final ? ? Urobilinogen, ur 10/25/2021 <2.0 <2.0 mg/dL Final ??? Nitrite, ur 10/25/2021 Negative Negative Final ??? Leukocyte esterase, ur 10/25/2021 4+ (A) Negative Final ??? UA reflex comment 10/25/2021 Reflex to microscopic UA will be performed. Final ??? Hgb A1C 10/25/2021 5.7 (A) 4.0 - 5.6 % Final ??? Estimated Average Glucose 10/25/2021 117 mg/dL Final ??? Sodium 10/25/2021 138 135 - 145 mmol/L Final ??? Potassium, pl 10/25/2021 3.7 3.3 - 4.9 mmol/L Final ??? Chloride 10/25/2021 99 97 - 110 mmol/L Final ??? CO2 10/25/2021 30 22 - 32 mmol/L Final ??? Anion gap 10/25/2021 8 2 - 15 mmol/L Final ??? BUN 10/25/2021 13 8 - 25 mg/dL Final ??? Creatinine 10/25/2021 0.73 0.60 - 1.10 mg/dL Final ??? Glucose 10/25/2021 93 70 - 199 mg/dL Final ??? Calcium 10/25/2021 9.3 8.5 - 10.3 mg/dL Final ??? Bilirubin, total 10/25/2021 0.3 0.1 - 1.2 mg/dL Final ??? Protein, pl 10/25/2021 6.5 6.5 - 8.5 g/dL Final ??? Albumin 10/25/2021 3.7 3.5 - 5.0 g/dL Final ??? Alk phos 10/25/2021 123 40 - 130 Units/L Final ??? ALT 10/25/2021 15 7 - 45 Units/L Final ??? AST 10/25/2021 16 10 - 45 Units/L Final ??? WBC 10/25/2021 7.9 3.8 - 9.9 K/cumm Final ??? Hgb 10/25/2021 13.3 11.9 - 15.5 g/dL Final ??? Hct 10/25/2021 42.1 35.6 - 45.5 % Final ??? Plt 10/25/2021 347 150 - 400 K/cumm Final ??? MPV 10/25/2021 8.7 (A) 9.1 - 12.3 fL Final ??? RBC 10/25/2021 4.89 3.90 - 5.20 M/cumm Final ??? MCV 10/25/2021 86.1 81.3 - 96.4 fL Final ??? MCH 10/25/2021 27.2 27.1 - 33.3 pg Final ??? MCHC 10/25/2021 31.6 (A) 32.3 - 35.7 g/dL Final ??? RDW CV 10/25/2021 14.6 11.1 - 14.9 % Final ??? RDW SD 10/25/2021 45.9 35.7 - 48.1 fL Final ??? NRBC abs 10/25/2021 0.00 0.00 - 0.01 K/cumm Final ??? Neutrophil abs 10/25/2021 5.1 1.7 - 6.5 K/cumm Final ??? Imm gran abs 10/25/2021 0.1 0.0 - 0.1 K/cumm Final ??? Lymphocyte abs 10/25/2021 1.9 0.8 - 3.3 K/cumm Final ??? Monocyte abs 10/25/2021 0.6 0.2 - 0.8 K/cumm Final ??? Eosinophil abs 10/25/2021 0.3 0.0 - 0.5 K/cumm Final ??? Basophil abs 10/25/2021 0.0 0.0 - 0.1 K/cumm Final ??? Neutrophil pct 10/25/2021 63.7 % Final ??? Imm gran pct 10/25/2021 0.8 % Final ??? Lymphocyte pct 10/25/2021 23.5 % Final ??? Monocyte pct 10/25/2021 7.3 % Final ??? Eosinophil pct 10/25/2021 4.2 % Final ??? Basophil pct 10/25/2021 0.5 % Final ??? WBC, ur 10/25/2021 21-50 (A) 0 - 5 /HPF Final ??? RBC, ur 10/25/2021 0-2 0 - 2 /HPF Final ??? Epithelial cells, squamous, ur 10/25/2021 1-5 0 - 5 /HPF Final ??? Mucous, ur 10/25/2021 Present (A) Final ??? Hyaline casts, ur 10/25/2021 6-10 0 - 10 /LPF Final ??? Culture Reflex Comment 10/25/2021 Reflex to urine culture will be performed. Final ??? Report 10/25/2021 Final Value:Final Report: Less than 100,000 colonies/mL (clinically insignificant growth based on current clinical standards) ??? Organism 10/25/2021 (CLINICALLY INSIGNIFICANT GROWTH Final ??? eGFR 10/25/2021 82 mL/min/1.73 m2 Final Office Visit on 10/14/2021 Component Date Value Ref Range Status ??? Inflenza A Ag, POC 10/14/2021 Negative Final ??? Influenza B Ag, POC 10/14/2021 Negative Final ??? COVID-19 Ag POC 10/14/2021 Presumptive Negative Presumptive Negative, Invalid Final Admission on 09/15/2021, Discharged on 09/16/2021 Component Date Value Ref Range Status ??? WBC 09/15/2021 12.1 (A) 3.8 - 9.9 K/cumm Final ??? Hgb 09/15/2021 14.6 11.9 - 15.5 g/dL Final ??? Hct 09/15/2021 44.6 35.6 - 45.5 % Final ??? Plt 09/15/2021 315 150 - 400 K/cumm Final ??? MPV 09/15/2021 8.8 (A) 9.1 - 12.3 fL Final ??? RBC 09/15/2021 5.34 (A) 3.90 - 5.20 M/cumm Final ??? MCV 09/15/2021 83.5 81.3 - 96.4 fL Final ??? MCH 09/15/2021 27.3 27.1 - 33.3 pg Final ??? MCHC 09/15/2021 32.7 32.3 - 35.7 g/dL Final ??? RDW CV 09/15/2021 13.8 11.1 - 14.9 % Final ??? RDW SD 09/15/2021 42.1 35.7 - 48.1 fL Final ??? NRBC abs 09/15/2021 0.00 0.00 - 0.01 K/cumm Final ??? Sodium 09/15/2021 134 (A) 135 - 145 mmol/L Final ??? Potassium, pl 09/15/2021 4.3 3.3 - 4.9 mmol/L Final ??? Chloride 09/15/2021 99 97 - 110 mmol/L Final ??? CO2 09/15/2021 25 22 - 32 mmol/L Final ??? Anion gap 09/15/2021 11 2 - 15 mmol/L Final ??? BUN 09/15/2021 17 8 - 25 mg/dL Final ??? Creatinine 09/15/2021 0.65 0.60 - 1.10 mg/dL Final ??? Glucose 09/15/2021 126 70 - 199 mg/dL Final ??? Calcium 09/15/2021 9.5 8.5 - 10.3 mg/dL Final ? ? Trop T hs 09/15/2021 8 <=14 ng/L Final ??? Differential 09/15/2021 Manual Final ??? Cells Counted 09/15/2021 100 Final ??? Neutrophil abs 09/15/2021 11.0 (A) 1.7 - 6.5 K/cumm Final ??? Lymphocyte abs 09/15/2021 0.7 (A) 0.8 - 3.3 K/cumm Final ??? Monocyte abs 09/15/2021 0.4 0.2 - 0.8 K/cumm Final ??? Neutrophil pct 09/15/2021 91.0 % Final ??? Lymphocyte pct 09/15/2021 3.0 % Final ??? Monocyte pct 09/15/2021 3.0 % Final ??? Variant lymphs 09/15/2021 3.0 (A) 0.0 - 0.0 % Final ??? RBC morphology 09/15/2021 Consistent with RBC Indicies Final ??? Anisocytosis 09/15/2021 Slight (A) Final ??? Platelet estimate 09/15/2021 Increased (A) Final ??? eGFR 09/15/2021 87 mL/min/1.73 m2 Final Office Visit on 09/02/2021 Component Date Value Ref Range Status ??? Complement component C4C 09/02/2021 31 mg/dL Final ??? C1 Esterase inhibitor, protein 09/02/2021 37 21 - 39 mg/dL Final ? ? C1 Esterase inhibitor, functional 09/02/2021 >100 % Final Lab on 08/24/2021 Component Date Value Ref Range Status ? ? CRP 08/24/2021 9.0 <=10.0 mg/L Final ??? Erythrocyte sedimentation rate 08/24/2021 18 1 - 30 mm/hr Final Lab on 08/19/2021 Component Date Value Ref Range Status ??? WBC 08/19/2021 6.4 3.8 - 9.9 K/cumm Final ??? Hgb 08/19/2021 13.4 11.9 - 15.5 g/dL Final ??? Hct 08/19/2021 41.9 35.6 - 45.5 % Final ??? Plt 08/19/2021 277 150 - 400 K/cumm Final ??? MPV 08/19/2021 9.3 9.1 - 12.3 fL Final ??? RBC 08/19/2021 4.90 3.90 - 5.20 M/cumm Final ??? MCV 08/19/2021 85.5 81.3 - 96.4 fL Final ??? MCH 08/19/2021 27.3 27.1 - 33.3 pg Final ??? MCHC 08/19/2021 32.0 (A) 32.3 - 35.7 g/dL Final ??? RDW CV 08/19/2021 13.7 11.1 - 14.9 % Final ??? RDW SD 08/19/2021 42.5 35.7 - 48.1 fL Final ??? NRBC abs 08/19/2021 0.00 0.00 - 0.01 K/cumm Final ??? Hgb A1C 08/19/2021 5.6 4.0 - 5.6 % Final ??? Estimated Average Glucose 08/19/2021 114 mg/dL Final ??? Sodium 08/19/2021 136 135 - 145 mmol/L Final ??? Potassium, pl 08/19/2021 3.7 3.3 - 4.9 mmol/L Final ??? Chloride 08/19/2021 100 97 - 110 mmol/L Final ??? CO2 08/19/2021 25 22 - 32 mmol/L Final ??? Anion gap 08/19/2021 10 2 - 15 mmol/L Final ??? BUN 08/19/2021 11 8 - 25 mg/dL Final ??? Creatinine 08/19/2021 0.63 0.60 - 1.10 mg/dL Final ??? Glucose 08/19/2021 111 70 - 199 mg/dL Final ??? Calcium 08/19/2021 9.0 8.5 - 10.3 mg/dL Final ??? Bilirubin, total 08/19/2021 0.4 0.1 - 1.2 mg/dL Final ??? Protein, pl 08/19/2021 6.5 6.5 - 8.5 g/dL Final ??? Albumin 08/19/2021 3.7 3.5 - 5.0 g/dL Final ??? Alk phos 08/19/2021 129 40 - 130 Units/L Final ??? ALT 08/19/2021 11 7 - 45 Units/L Final ??? AST 08/19/2021 14 10 - 45 Units/L Final ??? Color, ur 08/19/2021 Straw Yellow Final ??? Clarity, ur 08/19/2021 Clear Clear Final ??? Specific gravity, ur 08/19/2021 1.004 1.003 - 1.030 Final ??? pH, urine 08/19/2021 6.5 Final ??? Protein, ur ql 08/19/2021 Negative Negative Final ??? Glucose, ur ql 08/19/2021 Negative Negative Final ??? Ketones, ur 08/19/2021 Negative Negative Final ??? Bilirubin, ur 08/19/2021 Negative Negative Final ??? Blood, ur 08/19/2021 Negative Negative Final ? ? Urobilinogen, ur 08/19/2021 <2.0 <2.0 mg/dL Final ??? Nitrite, ur 08/19/2021 Negative Negative Final ??? Leukocyte esterase, ur 08/19/2021 Negative Negative Final ??? UA reflex comment 08/19/2021 Reflex conditions for microscopic UA and culture not met. Final ??? Neutrophil abs 08/19/2021 4.5 1.7 - 6.5 K/cumm Final ??? Imm gran abs 08/19/2021 0.0 0.0 - 0.1 K/cumm Final ??? Lymphocyte abs 08/19/2021 0.9 0.8 - 3.3 K/cumm Final ??? Monocyte abs 08/19/2021 0.6 0.2 - 0.8 K/cumm Final ??? Eosinophil abs 08/19/2021 0.3 0.0 - 0.5 K/cumm Final ??? Basophil abs 08/19/2021 0.0 0.0 - 0.1 K/cumm Final ??? Neutrophil pct 08/19/2021 71.0 % Final ??? Imm gran pct 08/19/2021 0.5 % Final ??? Lymphocyte pct 08/19/2021 14.7 % Final ??? Monocyte pct 08/19/2021 8.8 % Final ??? Eosinophil pct 08/19/2021 4.4 % Final ??? Basophil pct 08/19/2021 0.6 % Final ??? eGFR 08/19/2021 88 mL/min/1.73 m2 Final There may be more visits with results that are not included. Patient Active Problem List Diagnosis Code ??? 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 Chronic GERD K21.9 ??? 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 I10 ??? Restless legs syndrome G25.81 ??? 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 Insomnia, persistent G47.00 ??? Chronic pain disorder G89.4 ??? Knee joint replacement status, bilateral Z96.653 ??? History of malignant melanoma Z85.820 ??? Constipation due to opioid therapy K59.03, T40.2X5A ??? Atrial fibrillation (CMS/HCC) ([facility]) I48.91 ??? Left facial swelling R22.0 ??? Primary osteoarthritis of left hip M16.12 ??? Facial swelling R22.0 ??? Angio-edema T78.3XXA ??? Allergic rhinitis due to allergen J30.9 ??? Cough R05.9 ??? Left leg swelling M79.89 ??? Spinal stenosis of lumbar region with neurogenic claudication M48.062 ??? Peripheral arterial disease (CMS/HCC) ([facility]) I73.9 ??? prison current use of anticoagulant Z79.01 ??? 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 Lumbar radiculopathy M54.16 ??? 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.42, G89.29 ??? Encounter for long-term use of opiate analgesic Z79.891 ??? Lymphedema I89.0 ??? Tremor R25.1 BHUPENDRA Leblanc- documented in this encounter Plan of Treatment [...] as of this encounter Visit Diagnoses Diagnosis Lymphedema- Primary Other noninfectious lymphedema Tremor Abnormal involuntary movements documented in this encounter Discontinued Medications Medication Sig Discontinue Reason Start Date End Da te metOLazone (ZAROXOLYN) 2.5 mg tabletIndications:Left leg swelling TAKE ONE TAB PO MON, WED, FRI. Take 30 minutes before furosemide dose. 2021 12/06/2021 cyclobenzaprine (FLEXERIL) 10 mg tablet Take 1 tablet (10 mg total) by mouth nightly as needed for muscle spasms 11/16/2021 12/06/2021 documented as of this encounter Care Teams Swage Toolsetter Relationship Specialty Start Date End Date Pepper Morgan MD PCP - General 09/16/16 Hank Garibay MD [address] [place] [address] [address] [place] [address] Surgeon Orthopedic Surgery 03/27/17 Jacky Murry MD [address] [place] [address] [address] [place] [address] Ophthalmology 03/27/17 Puma Mckenzie MD [address] [facility] [place] [address] Surgeon Orthopedic Surgery 07/11/19 Neha Jackson PT Physical Therapist Physical Therapy 12/01/21 documented as of this encounter
--- OUTSIDE RECORDS SUMMARY | 2024-06-18 18:56 | XMS_ITS | Encounter Summary ---
Author Organization [facility] Address [address] [place] [address] Care Team Providers Care Concrete Paving Machine Operator Name Role Phone Pepper Morgan MD Primary Care Provider + [phone] Hank Garibay MD Unavailable [phone] Jacky Murry MD Unavailable [phone] Puma Mckenzie MD Unavailable [phone] Neha Jackson PT Unavailable Unavailable Reason for Visit * Reason Comments PT Treatment Encounter Details Date Type Department Care Team (Late st Contact Info) Description 01/07/2022 1:45 PM CDT Therapy [facility] [place] [address] [place] [address] Neha Jackson, PT Lumbar radiculopathy (Primary Dx) [...] on file 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 She reports she is feeling much better. Pain: 0/10 low back Objective: MARGO: 28% disability Treatment Provided: Gentle stretching IASTM to low back and SIJ--with massage gun SLR x 15 Isometric hip adduction x 15 Supine clamshells, blue theraband x 15 PPT x 15 Recumbent bike x 5 min Assessment: Tess has completed 7 visits of PT intervention. Her pain has diminished and she is pleased with her progress. All goals were met with the exception of the MARGO, but her score did decrease from evaluation and is likely related to other areas of pain/chronic issues. She is appropriate for D/C. Goals: STG 1:: Patient will be independent and compliant with HEP in order to promote optimal PT outcomes.GOAL MET STG 2:: Patient will improve lower body flexibility impairments from initial evaluation. GOAL MET LTG 1:: Patient will reduce MARGO to <20% disability in order to improve her ability to restore PLOF. GOAL NOT MET LTG 2:: Patient will improve B LE strength and core strength >1/2 grade from initial evaluation in order to improve her ability to tolerate standing activities >15 minutes. GOAL MET LTG 3:: Patient will improve low back pain levels to <3/10 maximally with all activities in order to improve her ability to sleep uninterrupted. GOAL MET Plan: D/C PT at this time. Start Time: 1344 End Time: 1420 Neha Jackson PT, DPT documented in this [...] unspecified documented in this encounter Care Teams Concrete Paving Machine Operator Relationship Specialty Start Date End Date Pepper Morgan MD PCP - General 09/16/16 Hank Garibay MD [address] [facility] [address] [place] [address] Surgeon Orthopedic Surgery 03/27/17 Jacky Murry MD [address] [facility] [address] [place] [address] Ophthalmology 03/27/17 Puma Mckenzie MD [address] [facility] [address] [place] [address] Surgeon Orthopedic Surgery 07/11/19 Neha Jackson PT Physical Therapist Physical Therapy 12/01/21 documented as of this encounter
--- OUTSIDE RECORDS SUMMARY | 2024-06-18 18:56 | XMS_ITS | Encounter Summary ---
Author Organization [facility] Address [address] [place] [address] Care Team Providers Care Volunteer Manager Name Role Phone Pepper Morgan MD Primary Care Provider + [phone] Hank Garibay MD Unavailable [phone] Jacky Murry MD Unavailable [phone] Puma Mckenzie MD Unavailable [phone] Neha Jackson PT Unavailable Unavailable Encounter Details Date Type Department Care Team (Late st Contact Info) Description 04/28/2022 8:20 AM ABSTRACT WRITER Lab [address] [address] Atherosclerosis of [place] arteries of extremities with intermittent claudication, bilateral [...] on file Legal Sex Female 4:33 AM ABSTRACT WRITER Gender Identity Not on file Sexual Orientation [...] Priority Date/Time Associated Diagnosis Comments EGFR Routine 04/28/2022 8:30 AM ABSTRACT WRITER Atherosclerosis of [place] arteries of extremities with intermittent claudication, bilateral legs (HCC) Shortness of breath PRO B-TYPE NATRIURETIC PEPTIDE Routine 04/28/2022 8:30 AM ABSTRACT WRITER Atherosclerosis of [place] arteries of extremities with intermittent claudication, bilateral legs (HCC) Shortness of breath BASIC METABOLIC PANEL Routine 04/28/2022 8:30 AM ABSTRACT WRITER Atherosclerosis of [place] arteries of extremities with intermittent claudication, bilateral legs (HCC) Shortness of breath documented in this encounter Results * eGFR (04/28/2022 8:30 AM ABSTRACT WRITER) [facility] eGFR 86 mL/min/1. 73 m2 [facility] ([place]) Comment: [...] interpretive data was last reviewed 2021. Blood 04/28/2022 8:30 AM ABSTRACT WRITER 04/28/2022 9:58 AM ABSTRACT WRITER us Stalin Arauz MD LAB BLOOD ORDERABLES Final Resu lt [facility] [address] [facility] Department [place] [address] * (ABNORMAL) Pro B-type natriuretic peptide (04/28/2022 8:30 AM ABSTRACT WRITER) NT-proBNP 1,801(H) <=450 pg/mL [facility] ([place]) Comment: Interpretive Comments: A. Dyspnea in Acute [...] Interpretive Data Last Revised Date: 2018. Blood 04/28/2022 8:30 AM ABSTRACT WRITER 04/28/2022 9:58 AM ABSTRACT WRITER us Stalin Arauz MD LAB BLOOD ORDERABLES Final [facility] Department [place] [address] * (ABNORMAL) Basic metabolic panel (04/28/2022 8:30 AM ABSTRACT WRITER) Sodium 127(L) 135 - 145 mmol/L [facility] ([place]) Potassium, pl 3.8 3.3 - 4.9 mmol/L [facility] ([place]) Chloride 87(L) 97 - 110 mmol/L [facility] ([place]) CO2 30 22 - 32 mmol/L [facility] ([place]) Anion gap 11 2 - 15 mmol/L [facility] ([place]) BUN 20 8 - 25 mg/dL [facility] ([place] Creatinine 0.68 0.60 - 1.10 mg/dL [facility] ([place]) Glucose 72 70 - 199 mg/dL [facility] ([place]) [...] 2017. Calcium 9.3 8.5 - 10.3 mg/dL [facility] ([place] Blood 04/28/2022 8:30 AM ABSTRACT WRITER 04/28/2022 9:58 AM ABSTRACT WRITER us Stalin Arauz MD LAB BLOOD ORDERABLES Final Resu lt [facility] ([place] [address] [facility] Department [place] [address] documented in this encounter Visit Diagnoses Diagnosis Atherosclerosis of [place] arteries of extremities with intermittent claudication, bilateral legs (HCC) Shortness of breath documented in this encounter Care Teams Volunteer Manager Relationship Specialty Start Date End Date Pepper Morgan MD PCP - General 09/16/16 Hank Garibay MD [address] [place] [address] [address] [place] [address] Surgeon Orthopedic Surgery 03/27/17 Jacky Murry MD [address] [place] [address] [address] [place] [address] Ophthalmology 03/27/17 Puma Mckenzie MD [address] [facility] [address] [place] [address] Surgeon Orthopedic Surgery 07/11/19 Neha Jackson, PT Physical Therapist Physical Therapy 12/01/21 documented as of this encounter
--- OUTSIDE RECORDS SUMMARY | 2024-06-18 18:56 | XMS_ITS | Encounter Summary ---
Author Organization Formerly [facility] Address [address] [place] [address] Care Team Providers Care Operations Dispatcher Name Role Phone Pepper Morgan MD Primary Care Provider + [phone] Hank Garibay MD Unavailable [phone] Jacky Murry MD Unavailable [phone] Puma Mckenzie MD Unavailable [phone] Reason for Visit * Reason Comments Follow-up Encounter Details Date Type Department Care Team (Latest Contact Info) Description 11/30/2021 2:56 PM CDT - 11/30/2021 11:59 PM CDT Hospital Encounter [facility] [address] [place] [address] Shalonda, William. 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; Encounter for long-term use of opiate analgesic Discharge Disposition: Discharge [...] Legal Sex Female 4:33 AM X RAY TECHNICIAN Gender Identity Not on file Sexual Orientation Not on file Occupation Industry Job Start Date Job End Date retired Not on file Not on file Not on file documented as of this encounter Last Filed Vital Signs Vital Sign Reading Time Taken Comments Blood Pressure 129/77 11/30/2021 3:09 PM CDT Pulse 87 11/30/2021 3:09 PM CDT Temperature - - Respiratory Rate 17 11/30/2021 3:09 PM CDT Oxygen Saturation 98% 11/30/2021 3:09 PM CDT Inhaled Oxygen Concentration - - Weight - - Height - - Body Mass Index - - documented in this encounter Discharge Instructions * Attachments The following attachments cannot be sent through Care Everywhere. * Methocarbamol (By injection) ([place] Sudanese) documented in this encounter Medications at Time of Discharge cholecalciferol (VITAMIN D-3) 2000 unit tablet Take 1 tablet (2,000 Units total) by mouth daily albuterol HFA (Proventil HFA) 90 mcg/actuation inhalerIndications: Cough Inhale 2 puffs every 6 (six) hours as needed for wheezing or shortness of breath 6.7 g 10/14/2021 05/10/20 22 apixaban (ELIQUIS) 5 mg tabletIndications:A trial fibrillation, unspecified type (HCC) Take 1 tablet (5 mg total) by mouth 2 (two) times a day 60 tablet 11 05/31/2021 04/08/20 22 cetirizine (ZyrTEC) 10 mg tabletIndications:A ngioedema, subsequent encounter Take 1 tablet (10 mg total) by mouth nightly 90 tablet 3 09/17/2021 12/09/19 23 cyclobenzaprine (FLEXERIL) 10 mg tablet Take 1 tablet (10 mg total) by mouth nightly as needed for muscle spasms 30 tablet 11/16/2021 12/07/19 22 felodipine (PLENDIL) 5 mg 24 hr tabletIndications:B enign hypertension Take 1 tablet (5 mg total) by mouth daily 90 tablet 1 09/17/2021 01/25/20 22 furosemide (LASIX) 40 mg tabletIndications:B enign hypertension Take 1 tablet (40 mg total) by mouth daily 90 tablet 1 08/23/2021 01/25/20 22 HYDROcodone-acetami nophen (NORCO) 10-325 mg per tabletIndications:P ain Take 1 tablet by mouth every 4 (four) hours as needed for pain 90 tablet 11/16/2021 12/23/19 22 methocarbamoL (ROBAXIN) 500 mg tablet Take 1 tablet (500 mg total) by mouth nightly as needed for muscle spasms 30 tablet 11/30/2021 12/23/19 22 metOLazone (ZAROXOLYN) 2.5 mg tabletIndications:L eft leg swelling TAKE ONE TAB PO MON, MON, MON. Take 30 minutes before furosemide dose. 30 tablet 2021 12/07/19 22 naloxone (NARCAN) 4 mg/actuation spray,non-aerosolIn dications:Chronic pain disorder Administer 1 spray into affected nostril(s) as needed for opioid reversal or respiratory depression Call 911. Administer a single spray in one nostril. Repeat every 3 minutes as needed if no or minimal response. 1 each 11/11/2021 02/19/20 22 ondansetron ODT (ZOFRAN-ODT) 4 mg disintegrating tabletIndications:n ausea and vomiting Take 1 tablet (4 mg total) by mouth every 6 (six) hours as needed for nausea or vomiting 20 tablet 2 11/02/2021 12/17/[address] (PROTONIX) 20 mg EC tabletIndications:C hronic GERD Take 1 tablet (20 mg total) by mouth daily With the largest meal 90 tablet 1 08/23/2021 01/25/20 22 polyethylene glycol (MIRALAX) 17 gram packetIndications:c onstipation Take 1 packet (17 g total) by mouth daily 05/26/2020 02/19/20 22 pramipexole (MIRAPEX) 0.125 mg tabletIndications:I diopathic Parkinsonism,Restle ss Legs Syndrome Take 1 tablet (0.125 mg total) by mouth 3 (three) times a day Take at 9:00 a.m., 3:00 p.m., 9:00 p.m. 270 tablet 1 08/23/2021 01/25/20 22 propranoloL (INDERAL) 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:H ereditary essential tremor Take 1 tablet (20 mg total) by mouth 2 (two) times a day as needed (Tremor) 180 tablet 1 08/23/2021 01/25/20 22 senna-docusate (Senna-S) 8.6-50 mgIndications:Const ipation due to opioid therapy Take 1 tablet by mouth daily 90 tablet 1 04/21/2021 12/17/19 22 spironolactone (Aldactone) 25 mg tabletIndications:B enign hypertension Take 0.5 tablets (12.5 mg total) by mouth daily Take 1/2 tablet daily 50 tablet 1 08/23/2021 01/25/20 22 documented as of this encounter Ordered Prescriptions Prescription Sig Dispense Quantity Refills Last Filled Start Date End Date methocarbamoL (ROBAXIN) 500 mg tablet Take 1 tablet (500 mg total) by mouth nightly as needed for muscle spasms 30 tablet 11/30/2021 2 documented in this encounter Discharge Disposition Disposition Code Departure Means Destination Discharge to home or self care documented in this encounter Progress Notes * Puma Johnson MD - 11/30/2021 3:15 PM CDT Patient Name: Tess Benedict : 1935 Today's Date: 11/30/2021 PCP: Pepper Morgan MD Referring: No ref. provider found Chief Complaint Patient presents with ??? Follow-up HPI Tess Benedict is a 86 y.o. year old female seen in consultation today for No ref. provider found. Today she returns to the [facility] with a report of 50% relief of her pain with the use of Highland 10/325, and Flexeril. Today she states that she has no pain during day and her painis only at night. She continues with a Chief Complaint of bilateral low back pain her left is worsethan her right with radiation to her left [...] shooting, nagging pain. It rates Currently 0/10 onthe numeric pain scale. At Worst 10/10 Provocative maneuvers include at night and with lying down.,At Best 0/10 Alleviating maneuvers include activity, standing, walking, and distraction. With regard to additional symptoms the patient denies any leg Weakness, She denies any Numbness. She denies bowel or bladder incontinence. She reports chronic pain associated Insomnia. Therapeutic modalities attempted to date include Highland 15/650 every 6 hours provides her relief, Flexeril provides her relief, tramadol provided her no relief, ice provides relief, Aleve provides relief, Tylenol provides her no relief, and physical therapy provided her no relief. Pain Score: 0 - No pain Pain Location: Back (Lumbar) Pain Radiating Towards: left buttock, left posterior thigh to the knee Pain Descriptors: Throbbing;Shooting;Sharp;Nagging Pain Frequency: Intermittent Pain Onset: Ongoing Clinical Progression: Gradually worsening Effect of Pain on Daily Activities: patient is able to complete adl's Allergies Allergen Reactions ??? Celecoxib Anaphylaxis ??? [...] 09/2008 ??? CHF (congestive heart failure) (CMS/HCC) (HCC) ??? Cough ??? DVT (deep venous thrombosis) (CMS/HCC) (HCC) 1977 upper left arm near elbow--- ??? [...] History: Procedure Laterality Date ??? BARIATRIC SURGERY 1984 gastroplasty ??? BREAST BIOPSY 1995 Breast biopsy ??? CHOLECYSTECTOMY 1992 Cholecystectomy ??? FL FLUORO GUIDED INJECTION HIP [...] HIP ARTHROPLASTY Left 11/01/2021 Dr. Mckenzie, [facility]. Social History Socioeconomic History ??? Marital status: Spouse name: Not on file ??? Number of children: 3 ??? Years of education: 12 ??? Highest education level: Not on file Occupational History ??? 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 Smoking status: Former Smoker Packs/day: 2.00 Years: 30.00 Pack years: 60.00 Quit date: 1981 Years since quittin.4 ??? Smokeless tobacco: Never Used Vaping Use ??? Vaping Use: Never used Substance and Sexual Activity ??? Alcohol use: Not Currently ??? Drug use: Never ??? Sexual activity: Defer Other Topics Concern ??? Not on file Social History Narrative ??? Not on file Social Determinants of Health Financial Resource Strain: Not on file Food Insecurity: Not on file Transportation Needs: Not on file Physical Activity: Not on file Stress: Not on file Social Connections: Not on file Intimate Partner Violence: Not on file Housing Stability: Not on file Family History Problem Relation Age of Onset ??? Cancer Other Family history of Cancer, unknown; ??? Arthritis Other Family history of Arthritis; ??? Abdominal Aortic Aneurysm Father ??? COPD Father HOME MEDICATIONS : albuterol HFA (Proventil HFA) 90 mcg/actuation inhaler apixaban (ELIQUIS) 5 mg tablet cetirizine (ZyrTEC) 10 mg tablet cholecalciferol (VITAMIN D-3) 2000 unit tablet cyclobenzaprine (FLEXERIL) 10 mg tablet felodipine (PLENDIL) 5 mg 24 hr tablet furosemide (LASIX) 40 mg tablet HYDROcodone-acetaminophen (NORCO) 10-325 mg per tablet methocarbamoL (ROBAXIN) 500 mg tablet metOLazone (ZAROXOLYN) 2.5 mg tablet naloxone (NARCAN) 4 mg/actuation spray,non-aerosol ondansetron ODT (ZOFRAN-ODT) 4 mg disintegrating tablet pantoprazole DR (PROTONIX) 20 mg EC tablet polyethylene glycol (MIRALAX) 17 gram packet pramipexole (MIRAPEX) 0.125 mg tablet propranoloL (INDERAL) 20 mg tablet senna-docusate (Senna-S) 8.6-50 mg spironolactone (Aldactone) 25 mg tablet Review of Systems Review of [...] patient is not nervous/anxious. Physical Exam Vitals: 11/30/21 1509 BP: 129/77 BP Location: Right arm Patient Position: Sitting Pulse: 87 Resp: 17 SpO2: 98% There is no height or weight on [...] memory normal. Judgment: Judgment normal. Gait is antalgic she uses a cane Toe Stand she is unable on her left, the right is reduced Heel Stand she is unable on her left, the right is reduced Low Back: Inspection is clean, dry, and intact, no lesions are noted, no bruising is noted, Palpation produces no pain Percussion produces no pain Lumbar Flexion 60 degrees produces no pain Extension 20 degrees produces concordant low back pain Right Lateral Flexion 20 degrees produces concordant low back pain Left Lateral Flexion 20 degrees produces concordant low back pain Lower Extremity: Motor bilaterally 5/5 equal and intact Sensory bilaterally equal and intact DTR's Patellar Right 0/4 Left 0/4 Achilles Right 0/4 Left 0/4 Straight leg Raise Right 60 degrees produces no pain DFF no change Left 60 degrees produces no pain DFF no change Gaenslen's Test Right negative produces no pain Left negative produces no pain FABERs Test Right negative produces no pain Left negative produces no pain Imaging: There is none of her lumbar spine Review of Data: Checked the [employer] PLUG PASTER sheet and it was consistent with our meds. UDT results: A sample was not obtained. The patient has a prescription for intranasal Narcan for the management of opioid induced respiratory depression or excess sedation. I reviewed the [employer] Prescription Monitoring Program printout and it was [...] had an in-depth conversation with Ms. Benedict and based on the fact that she has reduced her hydrocodone dosage from 60 mg per day down to 10mg per day, and she is able to perform her daily activities without pain I feel that she is improving. She however states that her inability to sleep secondary to pain is limiting her recovery. Basedon the fact that the Flexeril only allows her to sleep for approximately 1-1/2 hours, my recommendat ion is to try Robaxin 500 mg q.h.s. in the hopes that this may allow her to sleep longer. Additionally, I encouraged her to take 1 entire Highland with Robaxin in the hopes that this will also allow her to sleep longer. I also encouraged her to start physical therapy and I will have her follow-up in 3-4 weeks time to evaluate her response. Overall I feel that she is improving dramatically since her 1st visit. She denies any questions with regard above- mentioned plan, agrees and will trial this new dosage of Robaxin and a full Highland 10/325. I encouraged her to continue following up with Dr. Mckenzie. Problem List Coag and Thromboembolic custodial current use of anticoagulant Mental Health Encounter for long-term use of opiate analgesic Musculoskeletal and Injuries Chronic bilateral low back pain with left-sided sciatica Neuro Insomnia secondary to chronic pain - Primary Lumbar radiculopathy Plan No orders of the defined types were placed in this encounter. I will switch her muscle relaxer from Flexeril to Robaxin, and encouraged her to take a full Highland 10/325 p.r.n. at night. I encouraged her to start physical therapy, and I will have her follow-up in3-4 weeks time for repeat evaluation. Objective of opioid based therapy is to allow her to continue her activities of daily living with less suffering. No follow-ups on file. Thank you for allowing me to participate in the care of this pleasant patient. Puma Johnson MD 11/30/2021 documented in this encounter Plan of Treatment [...] as of this encounter Visit Diagnoses Diagnosis Insomnia secondary to chronic pain- Primary Lumbar radiculopathy Thoracic or lumbosacral neuritis or radiculitis, unspecified Chronic bilateral low back pain with left-sided sciatica custodial current use of anticoagulant Encounter for long-term use of opiate analgesic Encounter for long-term (current) use of other medications documented in this encounter Care Teams Operations Dispatcher Relationship Specialty Start Date End Date Pepper Morgan MD PCP - General 09/16/16 Hank Garibay MD 4 [facility] [address] [place] [address] Surgeon Orthopedic Surgery 03/27/17 Jacky Murry MD 4 [facility] [address] [place] [address] Ophthalmology 03/27/17 Puma Mckenzie MD 4 [facility] [address] [place] [address] Surgeon Orthopedic Surgery 07/11/19 documented as of this encounter
--- OUTSIDE RECORDS SUMMARY | 2024-06-18 18:56 | XMS_ITS | Encounter Summary ---
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, bilateral legs (HCC) Shortness of breath Procedures X-ray chest 2 views Stalin Arauz MD [address] [place] [id number] Phone: tel: fax: [address] [phone] Referral ID Status Reason Start Date Expiration Date Visits Re quested Visits Authorized [id number] Closed 05/02/2022 06/01/2023 1 1 TRIC METER REPAIRER Encounter Details Date Type Department Care Team (Late st Contact Info) Description 05/02/2022 Orders Only [place] [facility] Instructor at [address] [place] [address] Stalin Arauz MD [address] [place] [address] [address] [place] [address] 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, bilateral legs (HCC) (Primary Dx); Shortness of breath Social History Tobacco Use [...] on file Legal Sex Female 4:33 AM ELECTRIC METER REPAIRER Gender Identity Not on file Sexual Orientation Not on file Occupation Industry Job Start Date Job End Date retired Not on file Not on file Not on file documented as of this encounter Miscellaneous Notes * Addendum Note - Carmel Romo - 05/02/2022 10:27 AM CSTAddended by: CARMEL ROMO on: 05/05/2022 08:50 AM Modules accepted: Orders TRIC METER REPAIRER documented in this encounter Plan of Treatment [...] documented as of this encounter Results * X-ray chest 2 views (05/05/2022 9:00 AM ELECTRIC METER REPAIRER) Anatomical Region Laterality Modality Body, Chest N/A Computed Radiogr aphy 05/06/2022 10:4 7 AM ELECTRIC METER REPAIRER Narrative 05/06/2022 10:48 AM ELECTRIC METER REPAIRER EXAM DESCRIPTION: ?? XR CHEST PA LATERAL 2 VIEWS REASON FOR STUDY: ? Ex smoker ??No surgeries ??Coughing, wheezing, SOB x 1-2 weeks ??Hx of afib and CHF ?? TECHNIQUE: ??Two views COMPARISON: ??04/21/2021 FINDINGS: Heart size and vascularity appear normal. ??Aortic arch well-defined on the left. Lungs are well expanded without consolidation, effusion or pneumothorax. Bony degenerative changes obscures the apices and are noted through the thoracic spine with moderate scoliosis. ??Surgical clips the epigastrium. IMPRESSION: No acute findings THIS IS AN ELECTRONICALLY VERIFIED FINAL REPORT 05/06/2022 10:48 AM - Electronically signed by ??Saud Penny M.D. RB: AYLIN D: ??05/06/2022 10:48 AM T: ??05/06/2022 10:48 AM Report ID: [id number] Reading Location: ??[id number] Procedure Note Saud Penny MD - 05/06/2022 EXAM DESCRIPTION: XR CHEST PA LATERAL 2 VIEWS REASON FOR STUDY: Ex smoker No surgeries Coughing, wheezing, SOB x 1-2 weeks Hx of afiband CHF TECHNIQUE: Two views COMPARISON: 04/21/2021 FINDINGS: Heart size and vascularity appear normal. Aortic arch well-defined onthe left. Lungs are well expanded without consolidation, effusion or pneumothorax. Bony degenerative changes obscures the apices and are noted through the thoracic spine with moderate scoliosis. Surgical clips the epigastrium. IMPRESSION: No acute findings THIS IS AN ELECTRONICALLY VERIFIED FINAL REPORT 05/06/2022 10:48 AM - Electronically signed by Saud Penny M.D. RB: AYLIN Report ID: [id number] Reading Location: [id number] Stalin Arauz MD IMG XR PROCEDURES Final Result * (ABNORMAL) Basic metabolic panel (05/05/2022 8:48 AM ELECTRIC METER REPAIRER) Pathologist [facility] Sodium 126(L) 135 - 145 mmol/L [facility] ([place]) Potassium, pl 3.4 3.3 - 4.9 mmol/L [facility] ([place]) Chloride 83(L) 97 - 110 mmol/L [facility] ([place]) CO2 33(H) 22 - 32 mmol/L [facility] ([place]) Anion gap 11 2 - 15 mmol/L [facility] ([place]) BUN 19 8 - 25 mg/dL [facility] ([place]) Creatinine 0.64 0.60 - 1.10 mg/dL [facility] ([place]) Glucose 110 70 - 199 mg/dL [facility] ([place]) Comment: Interpretive Data Fasting glucose [...] 2017. Calcium 9.5 8.5 - 10.3 mg/dL [facility] ([place]) Blood 05/05/2022 8:48 AM ELECTRIC METER REPAIRER 05/05/2022 10:12 AM ELECTRIC METER REPAIRER Stalin Arauz MD LAB BLOOD ORDERABLES Final Resu lt [facility] ([place]) 1 [facility] Department [place] [address] * (ABNORMAL) Pro B-type natriuretic peptide (05/05/2022 8:48 AM ELECTRIC METER REPAIRER) Pathologist [facility] NT-proBNP 1,808(H) <=450 pg/mL [facility] ([place]) Comment: Interpretive [...] Interpretive Data Last Revised Date: 2018. 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, bilateral legs (HCC) Shortness of breath documented in this encounter Care Teams Dulite Machine Bluer Relationship Specialty Start Date End Date Pepper Morgan MD PCP - General 09/16/16 Hank Garibay MD [address] [facility] [address] [place] [address] Surgeon Orthopedic Surgery 03/27/17 Jacky Murry MD [address] [facility] [address] [place] [address] Ophthalmology 03/27/17 Puma Mckenzie MD [address] [facility] [address] [place] [address] Surgeon Orthopedic Surgery 07/11/19 Neha Jackson, PT Physical Therapist Physical Therapy 12/01/21 documented as of this encounter
--- OUTSIDE RECORDS SUMMARY | 2024-06-18 18:56 | XMS_ITS | Encounter Summary ---
Author Organization [facility] Address [address] [place] [address] Care Team Providers Care Sales And Service Specialist Name Role Phone Pepper Morgan MD Primary Care Provider + [phone] Hank Garibay MD Unavailable [phone] Jacky Murry MD Unavailable [phone] Puma Mckenzie MD Unavailable [phone] Neha Jackson PT Unavailable Unavailable Reason for Visit * Reason Comments PT Treatment Encounter Details Date Type Department Care Team (Late st Contact Info) Description 12/17/2021 1:00 PM CDT Therapy [facility] [place] [address] [place] [address] Neha Jackson, PT Lumbar radiculopathy (Primary Dx) [...] on file Legal Sex Female 4:33 AM DISTRICT GAUGER Gender Identity Not on file Sexual Orientation Not on file Occupation Industry Job Start Date Job End Date retired Not on file Not on file Not on file documented as of this encounter Progress Notes * Neha Jackson, PT - 12/17/2021 1:00 PM CDT PT Daily Treatment Note Tess Benedict 1935 Subjective: Tess states that she doesn't know if her back can be better or fixed. She reports shewas very sore after last visit. She reports that she is unable to sleep at night due to back pain. Pain: 0/10 low back Objective: See treatment provided. Treatment Provided: Gentle stretching IASTM to low back and SIJ--with massage gun Recumbent bike x 5 min Not performed today: Hip add with ball Hip abd with blue theraband SLR PPT with marching Assessment: Did not perform as many exercises today due to subjective complaints. Plan: Continue PT POC. Start Time: 1300 End Time: 1335 Neha Jackson PT, DPT documented in this [...] unspecified documented in this encounter Care Teams Sales And Service Specialist Relationship Specialty Start Date End Date Pepper Morgan MD PCP - General 09/16/16 Hank Garibay MD [address] [facility] [address] [place] [address] Surgeon Orthopedic Surgery 03/27/17 Jacky Murry MD [address] [place] [address] [address] [address] Ophthalmology 03/27/17 Puma Mckenzie MD [address] [facility] [address] [address] Surgeon Orthopedic Surgery 07/11/19 Neha Jackson, PT Physical Therapist Physical Therapy 12/01/21 documented as of this encounter
--- OUTSIDE RECORDS SUMMARY | 2024-06-18 18:56 | XMS_ITS | Encounter Summary ---
Author Organization Formerly [facility] Address [address] [place] [address] Care Team Providers Care Funeral Limousine Driver Name Role Phone Pepper Morgan MD Primary Care Provider + [phone] Hank Garibay MD Unavailable [phone] Jacky Murry MD Unavailable [phone] Puma Mckenzie MD Unavailable [phone] Neha Jackson PT Unavailable Unavailable Encounter Details Date Type Department Care Team (Late st Contact Info) Description 05/05/2022 8:45 AM BAGMAN/WOMAN Lab [address] [address] Atherosclerosis of [place] arteries of extremities with intermittent claudication, bilateral [...] on file Legal Sex Female 4:33 AM BAGMAN/WOMAN Gender Identity Not on file Sexual Orientation [...] Priority Date/Time Associated Diagnosis Comments EGFR Routine 05/05/2022 8:48 AM BAGMAN/WOMAN Atherosclerosis of [place] arteries of extremities with intermittent claudication, bilateral legs (HCC) Shortness of breath PRO B-TYPE NATRIURETIC PEPTIDE Routine 05/05/2022 8:48 AM BAGMAN/WOMAN Atherosclerosis of [place] arteries of extremities with intermittent claudication, bilateral legs (HCC) Shortness of breath BASIC METABOLIC PANEL Routine 05/05/2022 8:48 AM BAGMAN/WOMAN Atherosclerosis of [place] arteries of extremities with intermittent claudication, bilateral legs (HCC) Shortness of breath documented in this encounter Results * eGFR (05/05/2022 8:48 AM BAGMAN/WOMAN) [facility] eGFR 87 mL/min/1. 73 m2 [facility] ([place]) Comment: [...] interpretive data was last reviewed 2021. Blood 05/05/2022 8:48 AM BAGMAN/WOMAN 05/05/2022 10:12 AM BAGMAN/WOMAN us Stalin Arauz MD LAB BLOOD ORDERABLES Final Resu lt [facility] ([place]) 1 [facility] Department [place] [address] * (ABNORMAL) Pro B-type natriuretic peptide (05/05/2022 8:48 AM BAGMAN/WOMAN) NT-proBNP 1,808(H) <=450 pg/mL [facility] ([place]) Comment: Interpretive Comments: A. Dyspnea in Acute [...] as advanced age. - References: 1. Lizeth WNYN et.al. Eur Heart J. 2006:27:330-337. 2. Hayden RW, Iman AM. J. AM Sahra Cardiol: Cardiovasc Imag. 2009;2: 216- 225. Interpretive Data Last Revised Date: 2018. Blood 05/05/2022 8:48 AM BAGMAN/WOMAN 05/05/2022 10:12 AM BAGMAN/WOMAN us Stalin Arauz MD LAB BLOOD ORDERABLES Final Resu lt [facility] ([place]) 1 [facility] Department [place] [address] * (ABNORMAL) Basic metabolic panel (05/05/2022 8:48 AM BAGMAN/WOMAN) Sodium 126(L) 135 - 145 mmol/L [facility] ([place]) Potassium, pl 3.4 3.3 - 4.9 mmol/L [facility] ([place]) Chloride 83(L) 97 - 110 mmol/L [facility] ([place]) CO2 33(H) 22 - 32 mmol/L [facility] ([place]) Anion gap 11 2 - 15 mmol/L [facility] ([place]) BUN 19 8 - 25 mg/dL [facility] ([place]) Creatinine 0.64 0.60 - 1.10 mg/dL [facility] ([place]) Glucose 110 70 - 199 mg/dL [facility] ([place]) Comment: Interpretive Data Fasting [...] 2017. Calcium 9.5 8.5 - 10.3 mg/dL [facility] ([place]) Blood 05/05/2022 8:48 AM BAGMAN/WOMAN 05/05/2022 10:12 AM BAGMAN/WOMAN us Stalin Arauz MD LAB BLOOD ORDERABLES Final Resu lt [facility] ([place]) 1 [facility] Department [place] [address] documented in this encounter Visit Diagnoses Diagnosis Atherosclerosis of [place] arteries of extremities with intermittent claudication, bilateral legs (HCC) Shortness of breath documented in this encounter Care Teams Funeral Limousine Driver Relationship Specialty Start Date End Date Pepper Morgan MD PCP - General 09/16/16 Hank Garibay MD [address] [place] [address] DR WARNER Sheridan [facility] [address] [place] [address] Surgeon Orthopedic Surgery 03/27/17 Jacky Murry MD [address] [place] [address] DR WARNER Sheridan [facility] [address] [place] [address] Ophthalmology 03/27/17 Puma Mckenzie MD [address] [place] [address] DR WARNER Sheridan [facility] [address] [place] [address] Surgeon Orthopedic Surgery 07/11/19 Neha Jackson, PT Physical Therapist Physical Therapy 12/01/21 documented as of this encounter
--- OUTSIDE RECORDS SUMMARY | 2024-06-18 18:56 | XMS_ITS | Encounter Summary ---
Author Organization [facility] Address [address] [place] [address] Care Team Providers Care Packaging Clerk Name Role Phone Pepper Morgan MD Primary Care Provider + [phone] Hank Garibay MD Unavailable [phone] Jacky Murry MD Unavailable [phone] Puma Mckenzie MD Unavailable [phone] Neha Jackson PT Unavailable Unavailable Reason for Referral * Diagnostic Imaging (Routine) - Closed Specialty Diagnoses / Procedures Referred By Contnahun t Referred To Contact Diagnoses Atherosclerosis of [place] arteries of extremities with intermittent claudication, bilateral legs (HCC) Shortness of breath Procedures X-ray chest 2 views Stalin Arauz MD [address] [place] [address] Phone: tel: fax: [address] [phone] Referral ID Status Reason Start Date Expiration Date Visits Re quested Visits Authorized [id number] Closed 05/02/2022 06/01/2023 1 1 AD REELER Reason for Visit * Diagnostic Imaging (Routine) - Closed Specialty Diagnoses / Procedures Referred By Contac t Referred To Contact Diagnoses Atherosclerosis of [place] arteries of extremities with intermittent claudication, bilateral legs (HCC) Shortness of breath Procedures X-ray chest 2 views Stalin Arauz MD 2 [facility] [address] [address] Phone: tel: fax: [address] [address] Referral ID Status Reason Start Date Expiration Date Visits Re quested Visits Authorized [id number] Closed 05/02/2022 06/01/2023 1 1 Encounter Details Date Type Department Care Team (Latest Contact Info) Description 05/05/2022 8:42 AM THREAD REELER - 05/05/2022 11:59 PM THREAD REELER Hospital Encounter [facility] [address] [place] [address] Atherosclerosis of [place] arteries of extremities with intermittent claudication, bilateral legs (HCC); Shortness of breath Discharge Disposition: Discharge to home or self [...] on file Legal Sex Female 4:33 AM THREAD REELER Gender Identity Not on file Sexual Orientation [...] Name Priority Date/Time Associated Diagnosis Comments XR CHEST PA LATERAL 2 VIEWS Schedule Routine, Read Routine (OP Routine) 05/05/2022 9:00 AM THREAD REELER Atherosclerosis of [place] arteries of extremities with intermittent claudication, bilateral legs (HCC) Shortness of breath documented in this encounter Results * X-ray chest 2 views (05/05/2022 9:00 AM THREAD REELER) Anatomical Region Laterality Modality Body, Chest N/A Computed Radiogr aphy 05/06/2022 10:4 7 AM THREAD REELER Narrative 05/06/2022 10:48 AM THREAD REELER EXAM DESCRIPTION: ?? XR CHEST PA LATERAL [...] Electronically signed by ??Saud Penny M.D. RB: RB D: ??05/06/2022 10:48 AM T: ??05/06/2022 10:48 AM Report ID: [id number] Reading Location: ??[id number] Procedure Note Saud Penny MD - 05/06/2022 [...] Electronically signed by Saud Penny M.D. RB: RB Report ID: [id number] Reading Location: [id number] Stalin Arauz MD IMG XR PROCEDURES Final Result documented in this encounter Visit Diagnoses Diagnosis Atherosclerosis of [place] arteries of extremities with intermittent claudication, bilateral legs (HCC) Shortness of breath documented in this encounter Care Teams Packaging Clerk Relationship Specialty Start Date End Date Pepper Morgan MD PCP - General 09/16/16 Hank Garibay MD [address] [facility] [address] WARNER [address] [facility] [address] [place] [address] Surgeon Orthopedic Surgery 03/27/17 Jacky Murry MD [address] [facility] [address] WARNER Sheridan [facility] [address] [place] [address] Ophthalmology 03/27/17 Puma Mckenzie MD [address] [facility] [address] WARNER Sher[address] [facility] [address] [place] [address] Surgeon Orthopedic Surgery 07/11/19 Neha Jackson, PT Physical Therapist Physical Therapy 12/01/21 documented as of this encounter
--- OUTSIDE RECORDS SUMMARY | 2024-06-18 18:56 | XMS_ITS | Encounter Summary ---
Author Organization [facility] Address [address] [address] Care Team Providers Care Net Web Application Developer Name Role Phone Pepper Morgan MD Primary Care Provider + [phone] Hank Garibay MD Unavailable [phone] Jacky Murry MD Unavailable [phone] Puma Mckenzie MD Unavailable [phone] Neha Jackson PT Unavailable Unavailable Reason for Referral * Diagnostic Imaging (Routine) - Closed Specialty Diagnoses / Procedures [facility] Referred To Contact Diagnoses Paroxysmal atrial fibrillation (CMS/HCC) (HCC) Procedures NM MPI SPECT (Rest and/or Stress) Multiple Studies Stalin Arauz MD [address] [place] [address] Phone: tel: fax: [address] [phone] Referral ID Status Reason Start Date Expiration Date Visits Re quested Visits Authorized [id number] Closed 04/18/2022 05/18/2023 1 1 * Cardiology (Routine) - Closed Specialty Diagnoses / Procedures Referred By Contac t Referred To Contact Diagnoses Paroxysmal atrial fibrillation (CMS/HCC) (HCC) Procedures Transthoracic Echo (TTE) Complete W Doppler/CF Stalin Arauz MD [address] [place] [address] DR KRISHNAN [address] [place] [address] Phone: tel: fax: [address] [phone] Referral ID Status Reason Start Date Expiration Date Visits Re quested Visits Authorized [id number] Closed 04/18/2022 05/18/2023 1 1 * Diagnostic Imaging (Routine) - Closed Specialty Diagnoses / Procedures Referred By Contac t Referred To Contact Diagnoses Atherosclerosis of [place] arteries of extremities with intermittent claudication, bilateral legs (HCC) Procedures [facility] Stalin Arauz MD [address] [place] [address] DR KRISHNAN [address] [place] [address] Phone: tel: fax: [address] [phone] Referral ID Status Reason Start Date Expiration Date Visits Re quested Visits Authorized [id number] Closed 04/18/2022 05/18/2023 1 1 Reason for Visit * Reason Comments Atrial Fibrillation Encounter Details Date Type Department Care Team (Late st Contact Info) Description 04/18/2022 11:00 AM CDT Office Visit [facility] [employer] [facility] at [address] [address] Stalin Arauz MD [address] [place] [address] DR KRISHNAN [address] [place] [address] Peripheral arterial disease (CMS/HCC) (HCC) (Primary Dx); 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; Paroxysmal atrial fibrillation (CMS/HCC) (HCC); Atherosclerosis of [place] arteries of extremities with intermittent claudication, bilateral legs (HCC) Social History Tobacco Use Types Packs/Day Years Used Date Smoking Tobacco: Former Cigarettes - 1981 Smokeless Tobacco: Never Tobacco Cessation:Counseling [...] on file Legal Sex Female 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 Gender Identity Not on file Sexual Orientation Not on file Occupation Industry Job Start Date Job End Date retired Not on file Not on file Not on file documented as of this encounter Last Filed Vital Signs Vital Sign Reading Time Taken Comments Blood Pressure 141/77 04/18/2022 11:15 AM CDT Pulse 77 04/18/2022 11:15 AM CDT Temperature - - Respiratory Rate 18 04/18/2022 11:15 AM CDT Oxygen Saturation - - Inhaled Oxygen Concentration - - Weight 89.4 kg (197 lb) 04/18/2022 11:15 AM CDT Height 152.4 cm (5') 04/18/2022 11:15 AM CDT Body Mass Index 38.47 04/18/2022 11:15 AM CDT documented in this encounter Progress Notes * Stalin Arauz MD - 04/18/2022 11:00 AM CDT Cardiology note Reason for Office [...] to wear normalshoes. On aldactone and lasix. Review of Systems Constitutional: Negative for malaise/fatigue, [...] of nose 09/2008 CHF (congestive heart failure) ([facility]/HCC) ([facility]) Cough DVT (deep venous thrombosis) ([facility]/HCC) ([facility]) 1976 upper left arm near elbow--- Fibrocystic [...] ARTHROPLASTY Left 11/01/2021 Dr. Mckenzie, [facility]. Family History Problem Relation Age [...] tablet Take 2,000 Units by mouth daily cilostazoL (PLETAL) 50 mg tablet Take 1 tablet (50 mg total) by mouth 2 (two) times a day 180 tablet 3 clonazePAM (KlonoPIN) 0.25 mg disintegrating tablet Take 1 tablet (0.25 mg total) by mouth 2 (two) times a day as needed for seizures 30 tablet 5 clonazePAM (KlonoPIN) 0.5 mg tablet Take 1 tablet (0.5 mg total) by mouth nightly for 7 days 30 tablet 5 clopidogreL (PLAVIX) 75 mg tablet Take 1 tablet (75 mg total) by mouth daily 30 tablet 11 felodipine (PLENDIL) 5 mg 24 hr tablet Take 1 tablet (5 mg total) by mouth daily 90 tablet 1 furosemide (LASIX) 40 mg tablet Take 1 tablet (40 mg total) by mouth daily [address] (PROTONIX) 20 mg EC tablet Take 1 tablet (20 mg total) by mouth daily With the largest meal 90 tablet 1 polyethylene glycol (MIRALAX) 17 gram packet Take 17 g by mouth daily as needed for constipation pramipexole (MIRAPEX) 0.125 mg tablet Take up to 3 tablets daily starting them when you are having tremor developed in the afternoon or evening and taking up to 3 tablets daily. You do not have to take the medicine the morning if you are not having problem 270 tablet 1 propranoloL (INDERAL) 20 mg tablet Take 1 tablet (20 mg total) by mouth 2 (two) times a day as needed (Tremor) 180 tablet 1 rivaroxaban (XARELTO) 20 mg tablet Take 1 tablet (20 mg total) by mouth daily 30 tablet 1 spironolactone (Aldactone) 25 mg tablet Take 0.5 tablets (12.5 mg total) by mouth daily Take 1/2 tablet daily 60 tablet 1 No current facility-administered medications for this visit. Vitals BP 141/77 (BP Location: Right arm, Patient Position: Sitting) Pulse 77 Resp 18 Ht 152.4 cm (5') Wt 89.4 kg (197 lb) LMP (LMP Unknown) BMI 38.47 kg/m?? Vitals: 04/18/22 1115 BP: 141/77 Pulse: 77 Resp: 18 Wt Readings from Last 3 Encounters: 04/18/22 89.4 kg (197 lb) 02/18/22 86.2 kg (190 lb) 02/07/22 88.5 kg (195 lb) Body mass index is 38.47 kg/m??. Physical Exam Constitutional: General: She is [...] the posterior tibial stronger On the left, Dorsalis pedis is weak by Doppler. Posterior tibial is strong by Doppler Mild bilateral lower extremity edema. Worse on the [...] 11/08/2021 Lab Results Component Value Date SODIUM 138 03/24/2022 POTASSIUM 4.2 03/24/2022 CHLORIDE 101 03/24/2022 CO2 28 03/24/2022 ANIONGAP 9 03/24/2022 CK 114 11/09/2021 GLUCOSEUR Negative 10/25/2021 No results found for: BNP Lab Results Component Value Date SODIUM 138 03/24/2022 SODIUM 137 02/14/2022 SODIUM 133 (L) 12/01/2021 POTASSIUM 4.2 03/24/2022 POTASSIUM 3.8 02/14/2022 POTASSIUM 4.1 12/01/2021 CHLORIDE 101 03/24/2022 CHLORIDE 100 02/14/2022 CHLORIDE 94 (L) 12/01/2021 CO2 28 03/24/2022 CO2 31 02/14/2022 CO2 33 (H) 12/01/2021 BUNSER 17 03/24/2022 BUNSER 15 02/14/2022 BUNSER 19 12/01/2021 CREATININE 0.69 03/24/2022 CREATININE 0.64 02/14/2022 CREATININE 0.72 12/01/2021 GFRNAA 86 03/24/2022 GFRNAA 87 02/14/2022 GFRNAA 80 11/09/2021 GLUCOSE 92 03/24/2022 CALCIUM 9.4 03/24/2022 CALCIUM 9.5 02/14/2022 CALCIUM 9.1 12/01/2021 ALBUMIN 3.5 11/08/2021 ALBUMIN 3.7 10/25/2021 ALBUMIN 3.7 08/19/2021 PHOS 3.2 02/14/2017 PHOS 3.9 04/29/2014 Lab Results Component Value Date SODIUM 138 03/24/2022 POTASSIUM 4.2 03/24/2022 CHLORIDE 101 03/24/2022 CO2 28 03/24/2022 ANIONGAP 9 03/24/2022 BUNSER 17 03/24/2022 CREATININE 0.69 03/24/2022 GLUCOSE 92 03/24/2022 CALCIUM 9.4 03/24/2022 BILITOT 0.4 11/08/2021 PROT 6.6 11/08/2021 ALBUMIN 3.5 11/08/2021 ALKPHOS 142 (H) 11/08/2021 ALT 16 11/08/2021 AST 23 11/08/2021 Lab Results Component Value Date WBC 6.3 02/14/2022 HGB 13.4 02/14/2022 HCT 42.1 02/14/2022 LABPLAT 281 02/14/2022 MPV 9.3 02/14/2022 RBC 4.95 02/14/2022 MCV 85.1 02/14/2022 MCH 27.1 02/14/2022 MCHC 31.8 (L) 02/14/2022 RDWCV 13.5 02/14/2022 RDWSD 42.0 02/14/2022 NRBCABS 0.00 02/14/2022 Lab Results Component Value Date CHOL 191 [...] lower extremity, JONATHAN 0.82, monophasic wave form. Diagnoses 1. Atypical leg symptoms ? Peripheral [...] improvement of ankle-brachial index on the left 2. Atrial fibrillation, probably chronic on eliquis 3. Stenosis in abdominal aorta by CTA , not noticed on angiography 4. 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 S/p bilateral hip and knee replacement. Plan Continue same medication regimen.stop pletal. Continue tight control of blood pressure and cholesterol. Continue diet, exercise, and weight reduction Given lack of improvement with pain in the left lower extremity post revascularization despite improved ankle-brachial index, then no need to intervene on the right lower extremity at the present time given absence of critical limb ischemia. I discussed that the pain is probably orthopedic in nature. Advised use of compression stockings and leg elevation Call if open leg sores . Obtain BMP/ BNP today Echo to reassess LV function and stress test ( jd MPI) Return to the office in 3 months with follow-up ankle-brachial index Diagnoses and all orders for this visit: Peripheral arterial disease (CMS/HCC) (HCC) (Primary) 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 Paroxysmal atrial fibrillation (CMS/HCC) (HCC) Return in about 3 months (around 07/19/2022). 04/18/2022 12:01 PM Stalin Arauz MD Cc:Pepper Morgan MD documented in this encounter Miscellaneous Notes * Addendum Note - Malena Nguyen - 04/18/2022 11:00 AM CDTAddended by: MALENA NGUYEN on: 04/18/2022 12:24 PM Modules accepted: Orders documented in this encounter [...] of this encounter Results * US JONATHAN (07/19/2022 8:57 AM FORENSIC INVESTIGATOR) Anatomical Region Laterality Modality Vascular N/A Ultrasound 07/19/2022 8:35 AM FORENSIC INVESTIGATOR Narrative 07/19/2022 9:01 AM FORENSIC INVESTIGATOR [address] [address] Ankle Brachial Index Report Patient Name: TESS BENEDICT ?? : 1935 (86y 7m) ??Gender: F Study Date: 07/19/2022 8:35:00 AM Poultry Veterinarian: Saranya Provider: STALIN ARAUZ Quality: Adequate Ref.Provider: STALIN ARAUZ Procedures: Arterial Report: A bilateral extremities ankle/brachial index was performed. Indications: Leg Pain. Conclusions: 1. Yvtt-jy-jhvlcqwd arterial insufficiency at rest in the right [...] RightValueLeftValue Electronically Signed By: Stalin Arauz MD 2022-07-19 09:01:31 FORENSIC INVESTIGATOR Procedure Note Stalin Arauz MD - 07/19/[address] [address] Ankle Brachial Index Report Patient Name: TESS BENEDICTPatient ID: [id number] : 1935 (86y 7m) Gender: FStudy Date: 07/19/2022 8:35:00 AM Order Provider: STALIN ARAUZQuality: Adequate Ref.Provider: STALIN ARAUZ Procedures: Arterial Report: A bilateral extremities ankle/brachial index wasperformed. Indications: Leg Pain. Conclusions: 1. Ehgv-ee-cxwkjbob arterial insufficiency at rest in the right [...] RightValueLeftValue Electronically Signed By: Stalin Arauz MD 2022-07-19 09:01:31 FORENSIC INVESTIGATOR us Stalin Arauz MD IMG US PROCEDURES Final Result * TRANSTHORACIC ECHO (TTE) COMPLETE W DOPPLER/CF WO CONTRAST (06/03/2022 2:40 PM FORENSIC INVESTIGATOR) Anatomical Region Laterality Modality Ultrasound 06/03/2022 2:07 PM FORENSIC INVESTIGATOR Narrative 06/03/2022 3:50 PM FORENSIC INVESTIGATOR [address] [place] [address] Echocardiogram Report Patient Name: TESS BENEDICT : 1935 Study Date: 06/03/2022 2:07:20 PM Gender: F Tech: AA Location: echo room 1 Ref.Provider: STALIN ARAUZ Height(Cm): BSA: Weight(Kg): Quality: Good Order Provider: STALIN ARAUZ Procedures: Echocardiographic Report: Transthoracic echocardiogram with complete [...] with suboptimal views. Electronically Signed By: Stalin Arauz MD 2022-06-03 15:50:13 FORENSIC INVESTIGATOR CC: CC: Procedure Note Stalin Arauz MD - 06/03/[address] [address] Echocardiogram Report Patient Name: TESS BENEDICTPatient ID: [id number] : [id number] Date: 06/03/2022 2:07:20 PM Gender: FAccession #: [id number] Tech: AALocation: echo room 1 Ref.Provider: Chivo ARAUZ(Cm): BSA: Weight(Kg): Quality: GoodOrder Provider: STALIN ARAUZ Procedures: Echocardiographic Report: Transthoracic echocardiogram with complete [...] with suboptimal views. Electronically Signed By: Stalin Arauz MD 2022-06-03 15:50:13 FORENSIC INVESTIGATOR CC: CC: us Stalin Arauz MD CV ECHO PROCEDURES Final Result * NM MPI SPECT (Rest and/or Stress) Multiple Studies (05/09/2022 10:44 AM FORENSIC INVESTIGATOR) Anatomical Region Laterality Modality Body N/A Nuclear Medicine 05/09/2022 7:51 AM FORENSIC INVESTIGATOR Narrative 05/09/2022 6:09 PM FORENSIC INVESTIGATOR [address] [address] Venuemob Report Patient Name: TESS BENEDICT I : [...] Signed By: Hyacinth Cortez MD 2022-05-09 18:09:22 FORENSIC INVESTIGATOR Procedure Note Hyacinth Cortez MD - 05/09/[address] [address] Lexiscan Report Patient Name: TESS BENEDICT IPatient ID: [id number] : [id number] Date: 05/09/2022 7:51:07 AM Gender: FAccession #: [id number] Tech: Ref.Provider: STALIN ARAUZ Height(Cm): BSA: Weight(Kg): [...] Signed By: Hyacinth Cortez MD 2022-05-09 18:09:22 FORENSIC INVESTIGATOR Stalin Arauz MD [facility] PROCEDURES Final Result * (ABNORMAL) Pro B-type natriuretic peptide (04/18/2022 12:43 PM CDT) NT-proBNP 1,998(H) <=450 pg/mL [facility] Comment: Interpretive Comments: A. Dyspnea in Acute [...] MD LAB BLOOD ORDERABLES Final Resu lt [facility] [place] 1 [facility] Department of Laboratories [place], [place] [id number] * Basic metabolic panel (04/18/2022 12:43 PM CDT) Sodium 135 135 - 145 mmol/L [facility] ([place]) Potassium, pl 4.0 3.3 - 4.9 mmol/L [facility] ([place]) Chloride 99 97 - 110 mmol/L [facility] [place]) CO2 30 22 - 32 mmol/L [facility] ([place]) Anion gap 6 2 - 15 mmol/L [facility] ([place]) BUN 15 8 - 25 mg/dL [facility] [place]) Creatinine 0.62 0.60 - 1.10 mg/dL [facility] ([place]) Glucose 99 70 - 199 mg/dL [facility] ([place] Comment: Interpretive Data Fasting [...] 2017. Calcium 9.6 8.5 - 10.3 mg/dL [facility] ([place]) Blood 04/18/2022 12:4 3 PM CDT 04/18/2022 1:42 PM CDT us Stalin Arauz MD LAB BLOOD ORDERABLES Final Resu lt [facility] ([place]) 1 [facility] Department of Laboratories [place], [place] [address] documented in this encounter Visit Diagnoses Diagnosis Peripheral arterial disease (HCC)- Primary Unspecified peripheral vascular disease 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 Essential hypertension, benign Paroxysmal atrial fibrillation (CMS/HCC) (HCC) Atrial fibrillation Atherosclerosis of [place] arteries of extremities with intermittent claudication, bilateral legs (HCC) Paroxysmal atrial fibrillation (CMS/HCC) (HCC) Atrial fibrillation Paroxysmal atrial fibrillation (CMS/HCC) (HCC) Atrial fibrillation Atherosclerosis of [place] arteries of extremities with intermittent claudication, bilateral legs (HCC) documented in this encounter Discontinued Medications Medication Sig Discontinue Reason Start Date End Da te cilostazoL (PLETAL) 50 mg tabletIndications:Intermi ttent Claudication Take 1 tablet (50 mg total) by mouth 2 (two) times a day Therapy completed 03/28/2022 04/18/2022 documented as of this encounter Care Teams Net Web Application Developer Relationship Specialty Start Date End Date Pepper Morgan MD PCP - General 09/16/16 Hank Garibay MD 4 [facility] [address] WARNER Sher[address] [facility] [address] [place] [address] Surgeon Orthopedic Surgery 03/27/17 Jacky Murry MD 4 [facility] [address] WARNER [address] [facility] [address] [place] [address] Ophthalmology 03/27/17 Puma Mckenzie MD 4 [facility] [address] WARNER [address] [place] [address] Surgeon Orthopedic Surgery 07/11/19 Neha Jackson PT Physical Therapist Physical Therapy 12/01/21 documented as of this encounter
--- OUTSIDE RECORDS SUMMARY | 2024-06-18 18:56 | XMS_ITS | Encounter Summary ---
Author Organization [facility] Address [address] [address] Care Team Providers Care Supervisor Painting Department Name Role Phone Pepper Morgan MD Primary Care Provider [phone] Hank Garibay MD Unavailable [phone] Jacky Murry MD Unavailable [phone] Mary Mckenzie MD Unavailable Neha Jackson PT Unavailable Unavailable Reason for Referral * Consultation (Routine) - Closed Specialty Diagnoses / Procedures Referred By Contac t Referred To Contact Cardiology Diagnoses Peripheral arterial disease (HCC) Pepper Morgan MD Phone: tel: fax: Stalin Arauz MD [address] [place] [address] [address] Phone: tel: fax: Referral ID Status Reason Start Date Expiration Date V isits Requested Visits Authorized [id number] Closed Specialty Services Required 01/24/2022 02/23/2023 1 1 Question Answer Please select the performing region: [facility] [[id number]] Please select the performing department: [facility] [[id number]] To provider: STALIN ARAUZ [[id number]] # of visits: [address] Arauz evaluate for PAD and aortic calcification and advise--the report on the scan is listed below in case the computer is down for her visit with him, please contact pt to schedule an appt. Thank you Reason for Visit * Reason Comments Follow-up 3 mo Encounter Details Date Type Department Care Team (Late st Contact Info) Description 01/24/2022 10:20 AM CDT Office Visit [facility] [address] [place] [address] Pepper Morgan MD [address] [place] [address] Chronic pain disorder (Primary Dx); Spinal stenosis of lumbar region with neurogenic claudication; Postural kyphosis of cervicothoracic region; Insomnia, persistent; Restless legs syndrome; Parkinson's disease (tremor, stiffness, slow motion, unstable posture) (CMS/HCC) (HCC); Hereditary essential tremor; Paroxysmal atrial fibrillation (CMS/HCC) (HCC); Peripheral arterial disease (CMS/HCC) (HCC); 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; Angioedema, sequela; Chronic GERD; Bariatric surgery status Social History Tobacco Use Types Packs/Day Years [...] on file Legal Sex Female 4:33 AM [employer] Gender Identity Not on file Sexual Orientation Not on file Occupation Industry Job Start Date Job End Date retired Not on file Not on file Not on file documented as of this encounter Last Filed Vital Signs Vital Sign Reading Time Taken Comments Blood Pressure 120/78 01/24/2022 10:03 AM CDT Pulse 55 01/24/2022 10:03 AM CDT Temperature 36.4 ??C (97.5 ??F) 01/24/2022 10:03 AM C DT Respiratory Rate 18 01/24/2022 10:03 AM CDT Oxygen Saturation 99% 01/24/2022 10:03 AM CDT Inhaled Oxygen Concentration - - Weight 85.7 kg (189 lb) 01/24/2022 10:03 AM CDT Height - - Body Mass Index 36.91 12/16/2021 1:12 PM CDT documented in this encounter Patient Instructions * Patient Instructions* Pepper Morgan MD - 01/24/2022 10:20 AM CDT ORDERS FOR AMS STAFF TO ARRANGE 1. Refer Dr. Arauz evaluate for PAD [...] profile = atrial fibrillation PAD medication monitor ORDERS FOR Tess Benedict TO ARRANGE 1. Immunization recommendations: High-dose flu shot in March 20. Medication change For the restless leg and [...] hydrocodone tramadol and methocarbamol = Robaxin today Patient Care Team: Pepper Morgan MD as PCP - [facility], Hank Mccauley MD as Surgeon (Orthopedic Surgery) Jacky Murry MD (Ophthalmology) Mary Mckenzie MD as Surgeon (Orthopedic Surgery) Neha Jackson PT as Physical Therapist (Physical Therapy) Return in about 19 weeks (around 06/06/2022) for Annual physical, Recheck. Orders Placed This Encounter Procedures Lipid panel Comprehensive metabolic panel CBC with auto differential Iron profile w/ IBC Vitamin D 25 hydroxy Ambulatory referral order to Physical Therapy - Ambulatory referral to Cardiology A brief review of all your problems, medications, and orders from today ICD-9-CM ICD-10-CM 1. Chronic pain disorder 338.4 G89.4 Ambulatory referral order to Physical Therapy - 2. Spinal stenosis of lumbar region with neurogenic claudication 724.03 M48.062 3. Postural kyphosis of cervicothoracic region 737.10 M40.03 4. Insomnia, persistent 307.42 G47.00 5. Restless legs syndrome 333.94 G25.81 clonazePAM (KlonoPIN) 0.5 mg tablet DISCONTINUED: pramipexole (MIRAPEX) 0.125 mg tablet DISCONTINUED: clonazePAM (KlonoPIN) 0.5 mg tablet 6. Parkinson's disease (tremor, stiffness, slow motion, unstable posture) (CMS/HCC) (HCC) 332.0 [id number]: pramipexole (MIRAPEX) 0.125 mg tablet 7. Hereditary essential tremor 333.1 G25.0 propranoloL (INDERAL) 20 mg tablet 8. Paroxysmal atrial fibrillation (CMS/HCC) (HCC) 427.31 I48.0 9. Peripheral arterial disease (CMS/HCC) (HCC) 443.9 I73.9 Lipid panel Comprehensive metabolic panel CBC with auto differential Iron profile w/ IBC Ambulatory referral to Cardiology Lipid panel Comprehensive metabolic panel CBC with auto differential Iron profile w/ IBC 10. 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 401.1 I10 felodipine (PLENDIL) 5 mg 24 hr tablet furosemide (LASIX) 40 mg tablet spironolactone (Aldactone) 25 mg tablet 11. Angioedema, sequela 909.9 T78.3XXS 12. Chronic GERD 530.81 K21.9 pantoprazole (PROTONIX) 20 mg EC tablet 13. Bariatric surgery status V45.86 Z98.84 Vitamin D 25 hydroxy Vitamin D 25 hydroxy For your records I have provided this immunization report Immunization History Administered Date(s) Administered Influenza, Quadrivalent, High Dose, Preservative Free, Intrr 03/31/2020, 04/13/2021 Influenza, Quadrivalent, Split, Intramuscular 03/28/2016, 04/04/2017 Influenza, Split 05/18/2012 Influenza, Trivalent, Adjuvanted, Intramuscular 04/17/2019 Influenza, Trivalent, High Dose, Split, Preservative Free, Intramuscular 03/23/2015, 03/12/2018, 04/17/2019 Influenza, Trivalent, Intramuscular 03/25/2014, 04/17/2015 Influenza, Unspecified 03/13/2018, 03/19/2021 Pfizer SARS-CoV-2 Vaccination (12+ YRS) DOSS-READY TO USE 01/11/2022 Pfizer SARS-CoV-2 Vaccination (12+ yrs) PURPLE 08/15/2020, 09/06/2020, 03/14/2021 Pneumococcal Conjugate PCV 13 02/18/2015 Pneumococcal Polysaccharide PPV23 05/17/2002, 04/26/2016 Tdap 05/18/2011, 08/23/2021 ZOSTER Recombinant 12/02/2020, 02/23/2021 Primary Pharmacy/DME suppliers: [id number] - [place], [place] - [facility] [address] [place] [address] [place] [address] PLEASE BRING IN ALL PILL BOTTLES TO EVERY OFFICE VISIT, THIS IS ESSENTIAL FOR ACCURATE REFILLS AND MAINTAINING AN ACCURATE MEDICATION LIST. PLEASE SIGN UP FOR MyCHART so that you may have access to your labs and chart documentation IF YOU HAVE TROUBLE WITH THIS PROCESS CALL [phone] -- documented in this encounter Ordered Prescriptions Prescription Sig Dispense Quantity Refills Last Filled Start Date End Date clonazePAM (KlonoPIN) 0.5 mg tabletIndications: Restless legs syndrome Take 1 tablet (0.5 mg total) by mouth nightly for 7 days 7 tablet 1 01/24/2022 2 clonazePAM (KlonoPIN) 0.5 mg tabletIndications: Restless legs syndrome Take 1 tablet (0.5 mg total) by mouth nightly for 7 days 7 tablet 1 01/24/2022 2 spironolactone (Aldactone) 25 mg tabletIndications: 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 Take 0.5 tablets (12.5 mg total) by mouth daily Take 1/2 tablet daily 60 tablet 1 01/24/2022 2 propranoloL (INDERAL) 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: Hereditary essential tremor Take 1 tablet (20 mg total) by mouth 2 (two) times a day as needed (Tremor) 180 tablet 1 01/24/[address] (PROTONIX) 20 mg EC tabletIndications: Chronic GERD Take 1 tablet (20 mg total) by mouth daily With the largest meal 90 tablet 1 01/24/2022 2 furosemide (LASIX) 40 mg tabletIndications: 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 Take 1 tablet (40 mg total) by mouth daily 90 tablet 1 01/24/2022 2 felodipine (PLENDIL) 5 mg 24 hr tabletIndications: 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 Take 1 tablet (5 mg total) by mouth daily 90 tablet 1 01/24/2022 2 pramipexole (MIRAPEX) 0.125 mg tabletIndications: Idiopathic Parkinsonism,Restl ess Legs Syndrome Take 1-3 tablets (0.125-0.375 mg total) by mouth nightly as needed (Doses needed to control the evening Restless leg) Take at 9:00 a.m., 3:00 p.m., 9:00 p.m. 270 tablet 1 01/24/2022 2 documented in this encounter Progress Notes * Pepper Morgan MD - 01/24/2022 10:20 AM CDT ASSESSMENT AND PLAN Patient Instructions ORDERS FOR AMS STAFF TO ARRANGE 1. Refer Dr. Arauz evaluate for PAD and aortic calcification and advise--the report on the scan is listed below in case the computer is down for her visit with him 2. Refer Dr. GALLARDO evaluate for kyphosis neck pain and help with muscle spasm 3. Refer to [facility] physical therapy for neck program, she is going to try chiropractic 1st and if that does not work she may call back for this therapy 4. Labs for annual physical fasting lipid panel, chemistry panel, vitamin-D level, CBC, iron profile = atrial fibrillation PAD medication monitor ORDERS FOR Tess Benedict TO ARRANGE 1. Immunization recommendations: High-dose flu shot in March 20. Medication change For the restless leg and [...] hydrocodone tramadol and methocarbamol = Robaxin today Patient Care Team: Pepper Morgan MD as PCP - General Hank Garibay MD as Surgeon (Orthopedic Surgery) Jacky Murry MD (Ophthalmology) Mary Mckenzie MD as Surgeon (Orthopedic Surgery) Cobbel, Neha, PT as Physical Therapist (Physical Therapy) Return in about 19 weeks (around 06/06/2022) for Annual physical, Recheck. Orders Placed This Encounter Procedures ??? Lipid panel ??? Comprehensive metabolic panel ??? CBC with auto differential ??? Iron profile w/ IBC ??? Vitamin D 25 hydroxy ??? Ambulatory referral order to Physical Therapy - ??? Ambulatory referral to Cardiology A brief review of all your problems, medications, and orders from today ICD-9-CM ICD-10-CM 1. Chronic pain disorder 338.4 G89.4 Ambulatory referral order to Physical Therapy - 2. Spinal stenosis of lumbar region with neurogenic claudication 724.03 M48.062 3. Postural kyphosis of cervicothoracic region 737.10 M40.03 4. Insomnia, persistent 307.42 G47.00 5. Restless legs syndrome 333.94 G25.81 clonazePAM (KlonoPIN) 0.5 mg tablet DISCONTINUED: pramipexole (MIRAPEX) 0.125 mg tablet DISCONTINUED: clonazePAM (KlonoPIN) 0.5 mg tablet 6. Parkinson's disease (tremor, stiffness, slow motion, unstable posture) (CMS/HCC) ([facility]) 332.0 [id number]: pramipexole (MIRAPEX) 0.125 mg tablet 7. Hereditary essential tremor 333.1 G25.0 propranoloL (INDERAL) 20 mg tablet 8. Paroxysmal atrial fibrillation (CMS/HCC) (HCC) 427.31 I48.0 9. Peripheral arterial disease (CMS/HCC) ([facility]) 443.9 I73.9 Lipid panel Comprehensive metabolic panel CBC with auto differential Iron profile w/ IBC Ambulatory referral to Cardiology Lipid panel Comprehensive metabolic panel CBC with auto differential Iron profile w/ IBC 10. 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 401.1 I10 felodipine (PLENDIL) 5 mg 24 hr tablet furosemide (LASIX) 40 mg tablet spironolactone (Aldactone) 25 mg tablet 11. Angioedema, sequela 909.9 T78.3XXS 12. Chronic GERD 530.[address] (PROTONIX) 20 mg EC tablet 13. Bariatric surgery status V45.86 Z98.84 Vitamin D 25 hydroxy Vitamin D 25 hydroxy For your records I have provided this immunization report Immunization History Administered Date(s) Administered ??? Influenza, Quadrivalent, High Dose, Preservative Free, Intrr 03/31/2020, 04/13/2021 ??? Influenza, Quadrivalent, Split, Intramuscular 03/28/2016, 04/04/2017 ??? Influenza, Split 05/18/2012 ??? Influenza, Trivalent, Adjuvanted, Intramuscular 04/17/2019 ??? Influenza, Trivalent, High Dose, Split, Preservative Free, Intramuscular 03/23/2015, 03/12/2018, 04/17/2019 ??? Influenza, Trivalent, Intramuscular 03/25/2014, 04/17/2015 ??? Influenza, Unspecified 03/13/2018, 03/19/2021 ??? Pfizer SARS-CoV-2 Vaccination (12+ YRS) DOSS-READY TO USE 01/11/2022 ??? Pfizer SARS-CoV-2 Vaccination (12+ yrs) PURPLE 08/15/2020, 09/06/2020, 03/14/2021 ??? Pneumococcal Conjugate PCV 13 02/18/2015 ??? Pneumococcal Polysaccharide PPV23 05/17/2002, 04/26/2016 ??? Tdap 05/18/2011, 08/23/2021 ??? ZOSTER Recombinant 12/02/2020, 02/23/2021 Primary Pharmacy/DME suppliers: [id number] - [place] - [address] AT [facility] [address] [place] [address] PLEASE BRING IN ALL PILL BOTTLES TO EVERY OFFICE VISIT, THIS IS ESSENTIAL FOR ACCURATE REFILLS AND MAINTAINING AN ACCURATE MEDICATION LIST. PLEASE SIGN UP FOR MyCHART so that you may have access to your labs and chart documentation IF YOU HAVE TROUBLE WITH THIS PROCESS CALL [phone] -- CHIEF COMPLAINT Follow-up (3 mo) HISTORY OF PRESENT ILLNESS Tess Benedict returns today for her 4 mos follow-up to review Chronic medical problems and discuss her concerns, Review new orders, and brown bag medication review with all medications brought to the office, Refill Management where indicated . Important details of this conversation, exam, and plan for care are summarized at the top and bottom of this comprehensive note for the readers quick access to the information. ORDERS FROM LAST VISIT WITH ME 09/17/2021 1. No new orders before follow-up 2. Cancel the November office visit and reschedule for January when she is father out postop from hip replacement ?? ORDERS FOR Tess I Shewmake TO ARRANGE ??1. Immunization recommendations: 2. MEDICATION CHANGES Zyrtec 10 mg nightly to prevent the Carol, continue Claritin in the morning. Also remember to take the Zyrtec all way through the night before your upcoming hip replacement surgery ?? Resume Filodipine = Plendil 5 mg daily for blood pressure ?? For hip pain tramadol 25 mg 4 times daily with Tylenol ER 650 mg at each dosing to keep the pain under control ?? Senna 1 tablet 4 times daily to move bowels while we increase the dose of the tramadol ?? Continue 1 scoop of MiraLax daily while we arch using more tramadol ?? Iron with vitamin-C pill every evening with water or orange juice to ensure absorption, continues up until the day of surgery and will not be needed any longer. ?? DETAILS REGARDING THIS VISIT: Tess reports feeling poorly due to the poor sleep otherwise she is dramatically improved in all of the problems we been working on having no further facial swelling calmer back pain is resolved after physical therapy. She has however developed new neck pain problems : 1. Chronic pain disorder 2. Spinal stenosis of lumbar region with neurogenic claudication 3. Postural kyphosis of cervicothoracic region Chronic pain disorder is resolved she is taken off of hydrocodone from Dr. Johnson Robaxin from [facility] B[facility] and the old tramadol but I gave her that was not needed and did not work for the bad back problem. She responded to the physical therapy but now has trouble with her neck 4. Insomnia, persistent She has been taking hydrocodone and Robaxin and her Mirapex at night to try and sleep and she is not sleeping well 5. Restless legs syndrome 6. Parkinson's disease (tremor, stiffness, slow motion, unstable posture) (CMS/HCC) (HCC) Parkinson's tremor resolved with the Mirapex 3 times daily dosing but she does not really feel the need to take this medication in the morning. Restless leg start around the mid afternoon gets reallybad by dinner our and the dosage of Mirapex at night is not enough to help her through sleep. Were going to have her adjust the Mirapex starting in the afternoon and dosing around dinner and then take Klonopin at bedtime to help with the sleep and restless leg issues seems to be the thing that is bothering her sleep pramipexole (MIRAPEX) 0.125 mg tablet; Take 1-3 tablets (0.125-0.375 mg total) by mouth nightly as needed (Doses needed to control the evening Restless leg) Take at 9:00 a.m., 3:00 p.m., 9:00 p.m. Dispense: 270 tablet; Refill: 1 clonazePAM (KlonoPIN) 0.5 mg tablet; Take 1 tablet (0.5 mg total) by mouth nightly for 7 days Dispense: 7 tablet; Refill: 1 7. Hereditary essential tremor Propranolol works great for the essential tremor which is resolved at this time propranoloL (INDERAL) 20 mg tablet; Take 1 tablet (20 mg total) by mouth 2 (two) times a day as needed (Tremor) Dispense: 180 tablet; Refill: 1 8. Paroxysmal atrial fibrillation (CMS/HCC) (HCC) Heart rate under control, because of the Eliquis potentially causing anemia and iron deficiency will continue to follow CBC iron profile twice yearly. Iron deficiency might lead to worsening of this restless leg 9. Peripheral arterial disease (CMS/HCC) (HCC) Testing done for the back pain by MARY Baez revealed extensive arterial vascular disease in the aorta and lower extremities. Patient wonders if something should be done about this. The only thing we could do is go on cholesterol medications which she has not been willing to take becauseher tolerated that poorly and is not a good idea today because of much trouble if she is having with her muscle related symptoms. Will refer her to Dr. Arauz to determine if anything needs myla done on a interventional level which I doubt because she is symptom-free. Once stabilized from her tremor issues will consider placing on statin 10. 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 Excellent blood pressure results with resolution of the late pedal edema on the combination Lasix Aldactone plan felodipine (PLENDIL) 5 mg 24 hr tablet; Take 1 tablet (5 mg total) by mouth daily Dispense: 90 tablet; Refill: 1 furosemide (LASIX) 40 mg tablet; Take 1 tablet (40 mg total) by mouth daily Dispense: 90 tablet; Refill: 1 spironolactone (Aldactone) 25 mg tablet; Take 0.5 tablets (12.5 mg total) by mouth daily Take 1/2 tablet daily Dispense: 60 tablet; Refill: 1 11. Angioedema, sequela Condition has resolved on Zyrtec nightly, will trying to stop Claritin in the morning 12. Chronic GERD Excellent results with Protonix taking with breakfast pantoprazole DR (PROTONIX) 20 mg EC tablet; Take 1 tablet (20 mg total) by mouth daily With the largest meal Dispense: 90 tablet; Refill: 1 SOCIAL HISTORY Social History Tobacco Use ??? [...] 2 ??? Frequency of Binge Drinking: Never REVIEW OF SYSTEMS Review of Systems Constitutional: Positive for activity change (Very active with physical therapy and had great improvements in her low back pain no longer using pain medicine). Negative for fatigue, fever and unexpected weight change. HENT: Negative for congestion, dental problem, facial swelling ( no further facial swelling since being on Zyrtec at night and Claritin in the morning), hearing loss, postnasal drip, sinus pressure, sore [...] pain and vaginal discharge. Musculoskeletal: Positive for neck pain ( neck is bothering her interfering with sleep) and neck stiffness. Negative for arthralgias, back pain ( back pain resolved no longer needing Robaxin, hydrocodone, or tramadol for pain), gait problem, joint swelling and myalgias. Skin: Negative for color change and rash. Neurological: Negative for dizziness, weakness and headaches. Hematological: Negative for adenopathy. Does not bruise/bleed easily. Psychiatric/Behavioral: Positive for sleep disturbance. Negative for behavioral problems and dysphoric mood. The patient is nervous/anxious ( nervousness, anxiousness and tremulousness especially in the legs at night prevent her sleeping). MEDICATIONS CHANGED / CLEANED UP THIS VISIT Medications Discontinued During This Encounter Medication Reason ??? furosemide (LASIX) 40 mg tablet Reorder ??? pramipexole (MIRAPEX) 0.125 mg tablet Reorder ??? pantoprazole DR (PROTONIX) 20 mg EC tablet Reorder ??? propranoloL (INDERAL) 20 mg tablet Reorder ??? spironolactone (Aldactone) 25 mg tablet Reorder ??? felodipine (PLENDIL) 5 mg 24 hr tablet Reorder ??? clonazePAM (KlonoPIN) 0.5 mg tablet Reorder ??? HYDROcodone-acetaminophen (NORCO) 10-325 mg per tablet Therapy completed ??? methocarbamoL (ROBAXIN) 500 mg tablet Therapy completed MEDICATION LIST AT CONCLUSION OF THIS VISIT Current Outpatient Medications Ordered in [facility] Medication Sig Dispense Refill ??? albuterol HFA [...] Take 2,000 Units by mouth daily ??? polyethylene glycol (MIRALAX) 17 gram packet Take 1 packet (17 g total) by mouth daily (Patienttaking differently: Take 17 g by mouth daily as needed) ??? clonazePAM (KlonoPIN) 0.5 mg tablet Take 1 tablet (0.5 mg total) by mouth nightly for 7 days 7 tablet 1 ??? felodipine (PLENDIL) 5 mg 24 hr tablet Take 1 tablet (5 mg total) by mouth daily 90 tablet 1 ??? furosemide (LASIX) 40 mg tablet Take 1 tablet (40 mg total) by mouth daily 90 tablet 1 ??? naloxone (NARCAN) 4 mg/actuation spray,non-aerosol Administer 1 spray into affected nostril(s) as needed for opioid reversal or respiratory depression Call 911. Administer a single spray in one nostril. Repeat every 3 minutes as needed if no or minimal response. 1 each 0 ??? pantoprazole DR (PROTONIX) 20 mg EC tablet Take 1 tablet (20 mg total) by mouth daily With the largest meal 90 tablet 1 ??? pramipexole (MIRAPEX) 0.125 mg tablet Take [...] tablet daily 60 tablet 1 No current [facility]-ordered facility-administered medications on file. ALLERGIES is allergic to celecoxib, scopolamine, sulfa (sulfonamide antibiotics), amlodipine, lisinopril, trazodone, cymbalta [duloxetine], and sinemet [carbidopa-levodopa]. PHYSICAL EXAM body mass index is 36.91 kg/m??. Vitals: 01/24/22 1003 BP: 120/78 Pulse: 55 Resp: 18 Temp: 36.4 ??C (97.5 ??F) SpO2: 99% Weight: 85.7 kg (189 lb) Physical Exam Vitals and nursing note reviewed. Constitutional: General: She is not in acute distress. Appearance: Normal appearance. She is well-developed. She is obese. She is not ill-appearing. Comments: Looking better every single time I see year she is improved with much less pain today HENT: Head: Normocephalic and atraumatic. Right Ear: [...] to light. Neck: Thyroid: No thyromegaly. Comments: Kyphosis upper thoracic spine and neck with very tight trapezius muscles aggravating her pain Cardiovascular: Rate and Rhythm: Normal rate and [...] Hernia: No hernia is present. Musculoskeletal: General: No tenderness or deformity. Cervical back: Neck supple. Right lower leg: No edema. Left lower leg: No edema. Comments: Tenderness and deformity lumbar spine are dramatically improved with her therapy Lymphadenopathy: Cervical: No cervical adenopathy. Skin: General: Skin is warm and dry. Findings: No erythema, lesion or rash. Neurological: General: No focal deficit present. Mental Status: She is alert and oriented to person, place, and time. Mental status is at baseline. Cranial Nerves: No cranial nerve deficit. Motor: No weakness or abnormal muscle tone. Coordination: Coordination abnormal (Right arm is weaker than left, unchanged from her baseline exam however the cogwheeling). Gait: Gait normal. Deep Tendon Reflexes: Reflexes normal ( reflexes and absent at the knee, 1+ at the arms). Psychiatric: Mood and Affect: Mood normal. Behavior: Behavior normal. Thought Content: Thought content normal. Judgment: Judgment normal. Follow-up examination was completed today and specifics of the testing and counseling are recorded on the AVS. Tess Chente Marichuy's personal health goals were negotiated and agreed upon today. Assessment and plan for new and ongoing medical problems were reviewed and agreed upon. Risk, benefit and side effects of medications appropriate for care were reviewed and sent eRx to the patient'srequested pharmacies. All current lab work was reviewed [...] BLOOD WORK REVIEWED WITH Tess Benedict TODAY IMPRESSION: Abdominal aorta demonstrates approximately 50% stenosis [...] VERIFIED FINAL REPORT 11/09/2021 12:03 PM - Component Date Value Ref Range Status ??? Glucose 12/01/2021 83 65 - 139 mg/dL Final ??? BUN 12/01/2021 19 7 - 25 mg/dL Final ??? Creatinine 12/01/2021 0.72 0.60 - 0.88 mg/dL Final ? ? eGFR NON-AFR. [place] 12/01/2021 77 > OR = 60 mL/min/1.73m2 Final ? ? EGFR 12/01/2021 89 > OR = 60 mL/min/1.73m2 Final ??? BUN/creat ratio 12/01/2021 NOT APPLICABLE - (calc) Final ??? Sodium 12/01/2021 133 (A) [...] 0.88 mg/dL Final ? ? eGFR NON-AFR. [place] 11/12/2021 82 > OR = 60 mL/min/1.73m2 Final ? ? EGFR 11/12/2021 95 > OR = 60 mL/min/1.73m2 Final ??? BUN/creat ratio 11/12/2021 NOT APPLICABLE - (calc) Final ??? Sodium 11/12/2021 134 (A) [...] ??? History of malignant melanoma Z85.820 ??? Atrial fibrillation (CMS/HCC) ([facility]) I48.91 ??? Angio-edema T78.3XXA ??? Allergic rhinitis due to allergen J30.9 ??? Spinal stenosis of lumbar region with neurogenic claudication M48.062 ??? Peripheral arterial disease (CMS/HCC) ([facility]) I73.9 ??? retirement current use of anticoagulant Z79.01 ??? 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.42, G89.29 ??? Tremor R25.1 ??? Parkinson's disease (tremor, stiffness, slow motion, unstable posture) (CMS/HCC) ([facility]) G20 ??? Postural kyphosis of cervicothoracic region M40.03 Pepper Morgan M.D. documented in this encounter Plan of Treatment Scheduled Referrals Name Type Priority Associated Diagnoses Order Schedule Ambulatory referral to Cardiology Outpatient Referral Routine Peripheral arterial disease (CMS/HCC) (HCC) Expected: 02/07/2022 (Approximate), Expires: 01/24/2023 documented as of this encounter Goals Goal [...] Procedure Name Priority Date/Time Associated Diagnosis Comments IRON PROFILE W/ IBC Routine 05/23/2022 1 0:45 AM TRUCK DRIVING Peripheral arterial disease (CMS/HCC) (HCC) CBC WITH AUTO DIFFERENTIAL Routine 05/23/2022 10:45 AM TRUCK DRIVING Peripheral arterial disease (CMS/HCC) (HCC) VITAMIN D 25 HYDROXY Routine 05/23/2022 10:45 AM TRUCK DRIVING Bariatric surgery status LIPID PANEL Routine 05/23/2022 10:45 AM TRUCK DRIVING Peripheral arterial disease (CMS/HCC) (HCC) COMPREHENSIVE METABOLIC PANEL Routine 05/23/2022 10:45 AM TRUCK DRIVING Peripheral arterial disease (CMS/HCC) (HCC) documented in this encounter Results * Vitamin D 25 hydroxy (05/23/2022 10:45 AM TRUCK DRIVING) [facility] Vitamin D 25-OH 58 30 - 100 ng/mL [facility] Comment: Vitamin D Status ? 25-OH Vitamin D: Deficiency: ?<20 ng/mL Insufficiency: ? 20 - 29 ng/mL Optimal: ? > or = 30 ng/mL For 25-OH Vitamin D testing on patients on D2-supplementation and patients for whom quantitation of D2 and D3 fractions is required, the [facility]() 25-OH VIT D, (D2,D3), LC/MS/MS is recommended: order code 04019 (patients >2yrs). See Note 1 Note 1 For additional information, please refer to http://education.[employer]/faq/URV328 (This link is being provided for informational/ educational purposes only.) Blood specimen (specimen) 05/23/2022 10:45 AM TRUCK DRIVING 05/23/2022 10:47 AM TRUCK DRIVING Narrative [facility] - 05/25/2022 2:19 AM TRUCK DRIVING FASTING:NO FASTING: NO Pepper Morgan MD LAB BLOOD ORDERABLES Final Result Performing Organization Address [facility] de Phone Number [facility] [address] [place] [address] * Iron profile w/ IBC (05/23/2022 10:45 AM TRUCK DRIVING) [facility] Iron 62 45 - 160 mcg/dL [facility] TIBC 384 250 - 450 mcg/dL (calc) [facility] Iron saturation 16 16 - 45 % (calc) [facility] Blood specimen (specimen) 05/23/2022 10:45 AM TRUCK DRIVING 05/23/2022 10:47 AM TRUCK DRIVING Narrative [facility] - 05/25/2022 2:19 AM TRUCK DRIVING FASTING:NO FASTING: NO Pepper Morgan MD LAB BLOOD ORDERABLES Final Result Performing Organization Address [facility] de Phone Number [facility] [address] [place] [address] * (ABNORMAL) CBC with auto differential (05/23/2022 10:45 AM TRUCK DRIVING) [facility] WBC 6.9 3.8 - 10.8 Thousand/u L [facility] RBC, POC 5.25(H) 3.80 - 5.10 Million/uL [facility] Hgb 14.0 11.7 - 15.5 g/dL [facility] Hct 44.0 35.0 - 45.0 % [facility] MCV 83.8 80.0 - 100.0 fL [facility] MCH 26.7(L) 27.0 - 33.0 pg [facility] MCHC 31.8(L) 32.0 - 36.0 g/dL [facility] Rdw 14.1 11.0 - 15.0 % [facility] Platelets 400 140 - 400 Thousand/u L [facility] MPV 9.4 7.5 - 12.5 fL [facility] Neutrophils, abs 4,637 1,500 - 7,800 cells/uL [facility] Lymphocytes, abs 1,214 850 - 3,900 cells/uL [facility] Monocyte abs 580 200 - 950 cells/uL [facility] Eosinophils, abs 380 15 - 500 cells/uL [facility] Basophils, abs 90 0 - 200 cells/uL [facility] Neutrophils 67.2 % [facility] Lymphocyte pct 17.6 % [facility] Monocytes 8.4 % [facility] Eosinophils 5.5 % [facility] Basophils 1.3 % [facility] Blood specimen (specimen) 05/23/2022 10:45 AM TRUCK DRIVING 05/23/2022 10:47 AM TRUCK DRIVING Narrative [facility] - 05/25/2022 2:19 AM TRUCK DRIVING FASTING:NO FASTING: NO us Pepper Morgan MD LAB BLOOD ORDERABLES Final Result [facility] [address] [place] [address] * (ABNORMAL) Comprehensive metabolic panel (05/23/2022 10:45 AM TRUCK DRIVING) [facility] Glucose 88 65 - 139 mg/dL [facility] Comment: ? Non-fasting reference interval BUN 23 7 - 25 mg/dL [facility] Creatinine 0.75 0.60 - 0.95 mg/dL [facility] eGFR 78 > OR = 60 mL/min/1. 73m2 [facility] Comment: The eGFR is based on the CKD-EPI 2020 equation. To calculate the new eGFR from a previous Creatinine or Cystatin C result, go to https://www.kidney.org/professionals/ kdoqi/gfr%5Fcalculator BUN/creat ratio NOT APPLICABLE 6 - 22 (calc) [facility] Sodium 133(L) 135 - 146 mmol/L [facility] Potassium, pl 3.7 3.5 - 5.3 mmol/L [facility] Chloride 91(L) 98 - 110 mmol/L [facility] CO2 34(H) 20 - 32 mmol/L [facility] Calcium 9.7 8.6 - 10.4 mg/dL [facility] Protein, sr 6.7 6.1 - 8.1 g/dL [facility] Albumin 4.0 3.6 - 5.1 g/dL [facility] GLOBULIN 2.7 1.9 - 3.7 g/dL (calc) [facility] Alb/glob ratio 1.5 1.0 - 2.5 (calc) [facility] Bilirubin, total 0.5 0.2 - 1.2 mg/dL [facility] Alk phos 104 37 - 153 U/L [facility] AST 17 10 - 35 U/L [facility] ALT (SGPT) 13 6 - 29 U/L [facility] Blood specimen (specimen) 05/23/2022 10:45 AM TRUCK DRIVING 05/23/2022 10:47 AM TRUCK DRIVING Narrative [facility] - 05/25/2022 2:19 AM TRUCK DRIVING FASTING:NO FASTING: NO us Pepper Morgan MD LAB BLOOD ORDERABLES Final Result [facility] [address] [place] [address] * (ABNORMAL) Lipid panel (05/23/2022 10:45 AM TRUCK DRIVING) Cholesterol 185 <200 mg/dL [facility] HDL 54 > OR = 50 mg/dL [facility] Triglycerides 119 <150 mg/dL [facility] LDL 108(H) mg/dL (calc) [facility] Comment: Reference range: <100 Desirable range <100 mg/dL for primary prevention; ?? <70 mg/dL for patients with CHD or diabetic patients with > or = 2 CHD risk factors. LDL-C is now calculated using the Helen calculation, which is a validated novel method providing better accuracy than the Friedewald equation in the estimation of LDL-C. Serg SS et al. WILIAM. 2013;310(19): 4788-5160 (http://education.[employer]/faq/OGD979) Chol/HDL ratio 3.4 <5.0 (calc) [facility] Non-HDL, (LDL+VLDL) 131(H) <130 mg/dL (calc) [facility] Comment: For patients with diabetes plus 1 major ASCVD risk factor, treating to a non-HDL-C goal of <100 mg/dL (LDL-C of <70 mg/dL) is considered a therapeutic option. Blood specimen (specimen) 05/23/2022 10:45 AM TRUCK DRIVING 05/23/2022 10:47 AM TRUCK DRIVING Narrative [facility] - 05/25/2022 2:19 AM TRUCK DRIVING FASTING:NO FASTING: NO Pepper Morgan MD LAB BLOOD ORDERABLES Final Result [facility] [address] [facility] [place] [address] documented in this encounter Visit Diagnoses Diagnosis Chronic pain disorder- Primary Chronic pain syndrome Spinal stenosis of lumbar region with neurogenic claudication Postural kyphosis of cervicothoracic region Insomnia, persistent Restless legs syndrome Restless legs syndrome (RLS) Parkinson's disease (tremor, stiffness, slow motion, unstable posture) (HCC) Paralysis agitans Hereditary essential tremor Essential and other specified forms of tremor Paroxysmal atrial fibrillation (CMS/HCC) (HCC) Atrial fibrillation Peripheral arterial disease (HCC) Unspecified peripheral vascular disease 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 Essential hypertension, benign Angioedema, sequela Chronic GERD Bariatric surgery status documented in this encounter Discontinued Medications Medication Sig Discontinue Reason Start Date End Da te furosemide (LASIX) 40 mg tabletIndications: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 Take 1 tablet (40 mg total) by mouth daily Reorder 08/23/2021 01/24/2022 pramipexole (MIRAPEX) 0.125 mg tabletIndications:Idiopat hic Parkinsonism,Restless Legs Syndrome Take 1 tablet (0.125 mg total) by mouth 3 (three) times a day Take at 9:00 a.m., 3:00 p.m., 9:00 p.m. Reorder 08/23/2021 01/24/[address] (PROTONIX) 20 mg EC tabletIndications:Chronic GERD Take 1 tablet (20 mg total) by mouth daily With the largest meal Reorder 08/23/2021 01/24/2022 propranoloL (INDERAL) 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:Heredit elmer essential tremor Take 1 tablet (20 mg total) by mouth 2 (two) times a day as needed (Tremor) Reorder 08/23/2021 01/24/2022 spironolactone (Aldactone) 25 mg tabletIndications: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 Take 0.5 tablets (12.5 mg total) by mouth daily Take 1/2 tablet daily Reorder 08/23/2021 01/24/2022 felodipine (PLENDIL) 5 mg 24 hr tabletIndications: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 Take 1 tablet (5 mg total) by mouth daily Reorder 09/17/2021 01/24/2022 clonazePAM (KlonoPIN) 0.5 mg tabletIndications:Restles s legs syndrome Take 1 tablet (0.5 mg total) by mouth nightly for 7 days Reorder 01/24/2022 01/24/2022 HYDROcodone-acetaminophen (NORCO) 10-325 mg per tabletIndications:Pain Take 1 tablet by mouth daily as needed for pain Therapy completed 01/17/2022 01/24/2022 methocarbamoL (ROBAXIN) 500 mg tabletIndications:Lumbar radiculopathy Take 1 tablet (500 mg total) by mouth nightly as needed for muscle spasms Therapy completed 12/22/2021 01/24/2022 documented as of this encounter Care Teams Supervisor Painting Department Relationship Specialty Start Date End Date Pepper Morgan MD PCP - General 09/16/16 Hank Garibay MD [address] [facility] [address] [place] [address] Surgeon Orthopedic Surgery 03/27/17 Jacky Murry MD [address] [facility] [address] [place] [address] Ophthalmology 03/27/17 Mary Mckenzie MD [address] [facility] [address] [place] [address] Surgeon Orthopedic Surgery 07/11/19 Neha Jackson, KEVIN Physical Therapist Physical Therapy 12/01/21 documented as of this encounter
--- OUTSIDE RECORDS SUMMARY | 2024-06-18 18:56 | XMS_ITS | Encounter Summary ---
Author Organization [facility] Address [address] [facility] [address] [place] [address] Care Team Providers Care Roads Superintendent Name Role Phone Pepper Morgan MD Primary Care Provider [phone] Hank Garibay MD Unavailable [phone] Jacky Murry MD Unavailable [phone] Puma Mckenzie MD Unavailable [phone] Neha Jackson PT Unavailable Unavailable Encounter Details Date Type Department Care Team (Late st Contact Info) Description 03/01/2022 Orders Only [facility] [address] [place] [address] Pepper Morgan MD [address] [place] [address] Restless legs syndrome (Primary Dx); Parkinson's disease (tremor, stiffness, slow motion, unstable posture) (CMS/HCC) (HCC) Social History Tobacco Use Types [...] on file Legal 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 Gender Identity Not on file Sexual Orientation Not on file Occupation Industry Job Start Date Job End Date retired Not on file Not on file Not on file documented as of this encounter Ordered Prescriptions Prescription Sig Dispense Quantity Refills Last Filled Start Date End Date clonazePAM (KlonoPIN) 0.25 mg disintegrating tabletIndications:Re stless legs syndrome Take 1 tablet (0.25 mg total) by mouth 2 (two) times a day as needed for seizures 30 tablet 5 03/01/2022 documented in this encounter Progress Notes * Pepper Morgan MD - 03/01/2022 7:17 PM CDT Unable to cut Klonopin 0.5 mg successfully with half of the pill disintegrating on her. Will plan the oral disintegrating 0.25 mg tablet nightly. We may need to be applying for insurance coverage, they usually do not like to cover oral disintegrating tablet but this is the only size available in his 0.[address] Morgan documented in this encounter Plan [...] legs syndrome- Primary Restless legs syndrome (RLS) Parkinson's disease (tremor, stiffness, slow motion, unstable posture) (HCC) Paralysis agitans documented in this encounter Care Teams Roads Superintendent Relationship Specialty Start Date End Date Pepper Morgan MD PCP - General 09/16/16 Hank Garibay MD [address] [facility] [address] [place] [address] Surgeon Orthopedic Surgery 03/27/17 Jacky Murry MD [address] [place] [address] [address] [place] [address] Ophthalmology 03/27/17 Puma Mckenzie MD [address] [facility] [address] [place] [address] Surgeon Orthopedic Surgery 07/11/19 Neha Jackson PT Physical Therapist Physical Therapy 12/01/21 documented as of this encounter
--- OUTSIDE RECORDS SUMMARY | 2024-06-18 18:56 | XMS_ITS | Encounter Summary ---
Author Organization [facility] Address [address] [place] [address] Care Team Providers Care Accuracy Expert Name Role Phone Pepper Morgan MD Primary Care Provider [phone] Hank Garibay MD Unavailable [phone] Jacky Murry MD Unavailable [phone] Puma Mckenzie MD Unavailable [phone] Neha Jackson PT Unavailable Unavailable Reason for Referral * Diagnostic Imaging (Routine) - Closed Specialty Diagnoses / Procedures Referred By Contac t Referred To Contact Diagnoses Peripheral arterial disease (HCC) Procedures [facility] Stalin Arauz MD [address] [place] [address] Phone: tel: fax: [address] [address] Referral ID Status Reason Start Date Expiration Date Visits Re quested Visits Authorized [id number] Closed 03/24/2022 04/23/2023 1 1 Reason for Visit * Auth/Cert Specialty Diagnoses / Procedures Referred By Contac t Referred To Contact Diagnoses Peripheral vascular disease, unspecified PERIPHERAL VASCULAR DISEASE, UNSPECIFIED/PERIPHERAL ANGIOGRAPHY Procedures CHG ANGIO EXTERMITY BILAT PERIPHERAL ANGIOGRAPHY Referral ID Status Reason Start Date Expiration Date Visits Re quested Visits Authorized [id number] 1 1 Encounter Details Date Type Department Care Team (Latest Contact Info) Description 03/24/2022 7:44 AM CDT - 03/24/2022 1:15 PM CDT Hospital Encounter [facility] Cardiac Catheterization [address] [place] [address] Stalin Arauz MD [address] [address] Peripheral arterial disease (CMS/HCC) (FORMERLY [facility]) Discharge [...] on file 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 Gender Identity Not on file Sexual Orientation Not on file Occupation Industry Job Start Date Job End Date retired Not on file Not on file Not on file documented as of this encounter Last Filed Vital Signs Vital Sign Reading Time Taken Comments Blood Pressure 140/57 03/24/2022 1:00 PM CDT Pulse 74 03/24/2022 1:00 PM CDT Temperature 36.6 ??C (97.8 ??F) 03/24/2022 8:01 AM CD T Respiratory Rate 20 03/24/2022 1:00 PM CDT Oxygen Saturation 97% 03/24/2022 1:00 PM CDT Inhaled Oxygen Concentration - - Weight - - Height - - Body Mass Index - - documented in this encounter Discharge Instructions * Discharge Instructions* Rk Burgos, RN - 03/24/2022 9:49 AM CDT Instructions for going home after your AIF (Peripheral Angiogram) Care for the Catheter Insertion Site Your procedure was performed in the femoral artery in the left groin (the area at the top of your thigh). When you go home, there will be a bandage over the catheter insertion site. The morning after your procedure, you may take the dressing off. The easiest way to do this is whenyou are showering, get the tape and dressing wet and remove it. Wash the catheter insertion site at least once daily with soap and water. Place soapy water on yourhand or washcloth and gently wash the insertion site; do not rub. Keep the area clean and dry when you are not showering. It is normal for the catheter insertion site to be black and blue for a couple of days. There may also be a small lump (about the size of a pea) at the site. Do not use creams, lotions, or ointment [...] strain during bowel movements for the first 4 days after the procedure to prevent bleeding from the catheter insertion site. Avoid heavy lifting (more than 10 pounds) and pushing or pulling heavy objects for the first 7 daysafter the procedure. Do not participate in strenuous [...] be committed to leading a heart-healthy lifestyle. Take your medicationsas prescribed, make dietary changes, quit smoking, exercise regularly, keep your follow-up appointments and be an active member of the treatment team. * Appointments* Suze Nogueira RN - 03/24/2022 9:55 AM CDT You have a new follow-up appointment in the [facility] office with Dr. Arauz on April 18, 2022 @ 11:00 a.m. You need to have an JONATHAN exam done 3-5 days PRIOR to seeing him. Please call our Centralized Scheduling Department at [phone] to have this set up. You may resume your Eliquis this evening documented in this encounter Medications at Time of Discharge cholecalciferol (VITAMIN D-3) 2000 unit tablet Take 1 tablet (2,000 Units total) by mouth daily albuterol HFA (Proventil HFA) 90 mcg/actuation inhalerIndications: Cough Inhale 2 puffs every 6 (six) hours as needed for wheezing or shortness of breath 6.7 g 2 05/10/20 22 apixaban (ELIQUIS) 5 mg tabletIndications:A trial fibrillation, unspecified type (HCC) Take 1 tablet (5 mg total) by mouth 2 (two) times a day 60 tablet 11 1 04/08/20 22 cetirizine (ZyrTEC) 10 mg tabletIndications:A ngioedema, subsequent encounter Take 1 tablet (10 mg total) by mouth nightly 90 tablet 3 2 12/09/19 23 cilostazoL (PLETAL) 50 mg tabletIndications:I ntermittent Claudication Take 1 tablet (50 mg total) by mouth 2 (two) times a day 60 tablet 1 2 03/28/20 22 clonazePAM (KlonoPIN) 0.25 mg disintegrating tabletIndications:R [...] (Tremor) 180 tablet 1 2 06/08/20 22 spironolactone (Aldactone) 25 mg tabletIndications:B enign hypertension Take 0.5 tablets (12.5 mg total) by mouth daily Take 1/2 tablet daily 60 tablet 1 2 06/08/20 22 documented as of this encounter Ordered Prescriptions Prescription Sig Dispense Quantity Refills Last Filled Start Date End Date cilostazoL (PLETAL) 50 mg tabletIndications: Intermittent Claudication Take 1 tablet (50 mg total) by mouth 2 (two) times a day 60 tablet 1 03/24/2022 03/28/2022 documented in this encounter Discharge Disposition Disposition Code Departure Means Destination Discharge to home or self care documented in this encounter H&P Notes * Stalin Arauz MD - 03/24/2022 10:09 AM CDT Cardiology History and Physical History of Present Illness: Tess eBnedict is a 86 y.o. female with a PMHx of of PAD, A-fib, DVT LUR, CHF, HTN and HLD. Patient was seen in the office in January of this year as a new patient for evaluation of her PAD. Patient had bilateral arterial and venous Dopplers performed. Venous Dopplers were negative for DVT, however arterial Dopplers showed disease in the SFA. Patient then had CTA abdominal aorta and bilateral lower extremities. There is a significant amount of artifact on imaging due to bilateral knee replacements. Patient underwent peripheral angiography 02/18/2022 where she underwent left common iliac, left external iliac and left SFA stenting. Today patient presents for repeat peripheral angiography for intervention of the right superficial femoral artery. Benefits and risks were discussed with the patient. This includes but is not limited to the risk of bleeding, vascular complications, and contrast related issues. Patient understands the risks and is willing to proceed. 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 Mckenzie, [facility]. Allergies Allergen Reactions Celecoxib Anaphylaxis Scopolamine Mental status changes Delirium postop after joint replacement due to this medicine Sulfa (Sulfonamide Antibiotics) Anaphylaxis Amlodipine Swelling Lisinopril Swelling Trazodone Swelling Tongue Cymbalta [Duloxetine] Fatigue Sleepiness, tiredness possibly related to 20 mg morning dose of this medicine discontinued 11/30/2020 Sinemet [Carbidopa-Levodopa] Other (See comments) Night hines Patient Vital Signs for the past 24 hrs: BP Temp Temp src Pulse Resp SpO2 03/24/22 0955 164/87 -- -- 69 22 (!) 89 % 03/24/22 0940 147/76 -- -- 75 18 (!) 85 % 03/24/22 0801 158/84 36.6 ??C (97.8 ??F) Temporal 71 18 100 % No intake or output data in the 24 hours ending 03/24/22 1009 Wt Readings from Last 3 Encounters: 02/18/22 86.2 kg (190 lb) 02/07/22 88.5 kg (195 lb) 01/24/22 85.7 kg (189 lb) Physical Exam: General: Well developed, well nourished, [...] edema. Femoral pulses 2+. Pedal pulses 2+ on the left Musculoskeletal: Muscle strength normal. No scoliosis. Neurologic: Oriented to person, place, and time. Mood not depressed. Family History Problem Relation Age of Onset [...] as neededfor wheezing or shortness of breath 10/14/21 Jacqueline Fuller NP apixaban (ELIQUIS) 5 mg tablet Take 1 tablet (5 mg total) by mouth 2 (two) times a day 05/31/21 Pepper Morgan MD cetirizine (ZyrTEC) 10 mg tablet Take 1 tablet (10 mg total) by mouth nightly 09/17/21 Pepper Morgan MD cholecalciferol (VITAMIN D-3) 2000 unit tablet Take 2,000 Units by mouth daily Provider, MD Latasha clonazePAM (KlonoPIN) 0.25 mg disintegrating tablet Take 1 tablet (0.25 mg total) by mouth 2 (two) times a day as needed for seizures 03/01/22 03/31/22 Pepper Morgan MD clonazePAM (KlonoPIN) 0.5 mg tablet Take 1 tablet (0.5 mg total) by mouth nightly for 7 days 02/04/22 02/11/22 Pepper Morgan MD clopidogreL (PLAVIX) 75 mg tablet Take 1 tablet (75 mg total) by mouth daily 02/18/22 02/18/23 Stalin Arauz MD felodipine (PLENDIL) 5 mg 24 hr tablet Take 1 tablet (5 mg total) by mouth daily 01/24/22 Pepper Morgan MD furosemide (LASIX) 40 mg tablet Take 1 tablet (40 mg total) by mouth daily 01/24/22 Pepper Morgan MD pantoprazole DR (PROTONIX) 20 mg EC tablet Take 1 tablet (20 mg total) by mouth daily With the largest meal 01/24/22 Pepper Morgan MD polyethylene glycol (MIRALAX) 17 gram packet Take 17 g by mouth daily as needed for constipation ProviderLatasha MD pramipexole (MIRAPEX) 0.125 mg tablet Take up to 3 tablets daily starting them when you are having tremor developed in the afternoon or evening and taking up to 3 tablets daily. You do not have to take the medicine the morning if you are not having problem 01/24/22 Pepper Morgan MD propranoloL (INDERAL) 20 mg tablet Take 1 tablet (20 mg total) by mouth 2 (two) times a day as needed (Tremor) 01/24/22 Pepper Morgan MD spironolactone (Aldactone) 25 mg tablet Take 0.5 tablets (12.5 mg total) by mouth daily Take 1/2 tablet daily 01/24/22 Pepper Morgan MD cyclobenzaprine (FLEXERIL) 10 mg tablet Take 1 tablet (10 mg total) by mouth nightly as needed for muscle spasms 11/16/21 12/06/21 Puma Johnson MD metOLazone (ZAROXOLYN) 2.5 mg tablet TAKE ONE TAB PO MON, WED, FRI. Take 30 minutes before furosemide dose. 11/23/21 12/06/21 Pepper Morgan MD Lab Results Component Value Date TSH 3.18 11/30/2020 FREET4 1.29 11/30/2020 Lab Results Component Value Date CHOL 191 03/28/2016 TRIG 106 03/28/2016 HDL 46 03/28/2016 Arterial duplex was suggestive of stenosis in [...] is not seen. CTA runoff is recommended. Peripheral Angiography: 02/18/2022 IMPRESSION 1. Peripheral vascular disease involving ulcerated [...] mm balloon. 6. Successful vascular access closure. Diagnoses 1. Atypical leg symptoms ? Peripheral artery disease related.pt with occlusion of both SFA and moderate iliac disease . Symptoms suggestive of claudication given improvement with short rest. S/p stenting to L common iliac, L external iliac and left SFA. Presents for intervention of R SFA. 2.Paroxysmal Atrial fibrillation , on eliquis 3. 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 S/p bilateral hip and knee replacement. Plan: Staged intervention on the right superficial femoral artery Stalin Arauz MD v CC: Pepper Morgan MD Bitar, Saad R., MD documented in this encounter Procedure Notes * Stalin Arauz MD - 03/24/2022 10:10 AM CDT Procedures Bilateral lower extremity angiography, attempted intervention of the right superficial femoral artery was performed through the left femoral artery Findings Widely patent previously implanted stents in the left iliac vessels as well as proximal superficialfemoral artery. Three-vessel runoff on the left On the right, mild disease in the external iliac artery. Normal popliteal artery and three-vessel runoff with continues to vessels at the ankle. Long segment occlusion of the superficial femoral artery starting near the ostium. Attempt recanalization was not successful as a kept going into the subintimal plane. Reentry into the true lumen using Outback device was not successful. Procedure was aborted. Angio-Seal to left groin Plan Continue medical therapy and assess the need for re-attempt intervention based on her residual symptoms on medical therapy. Need to continue on Plavix and Eliquis. Will add a trial of Pletal 50 b.i.d. till seen in follow-up Stalin Arauz MD documented in this encounter Nursing Notes * Jani Kendall RN - 03/24/2022 1:00 PM CDT Discharge and medication and home car instructions reviewed with patient and son. Stated understanding, signed discharge. TOSHIA documented in this encounter Miscellaneous Notes * Pre-Sedation Documentation - Stalin Arauz MD - 03/24/2022 10:10 AM CDT Sedation Plan ASA 2 - Mild systemic disease Mallampati class: II. Risks, benefits, and alternatives discussed with patient. documented in this encounter Plan of Treatment [...] Procedure Name Priority Date/Time Associated Diagnosis Comments AORTOG ABD+JENNIFFER LOW EXTRM Routine 03/24/2022 9:39 AM CDT Peripheral arterial disease (CMS/HCC) (HCC) ANGIOGRAPHY UNILATERAL EXTREMITY S&I 91526 Routine 03/24/2022 9:39 AM CDT Peripheral arterial disease (CMS/HCC) (HCC) CARDIAC CATHETERIZATION Routine 03/24/20 9:39 AM CDT Peripheral arterial disease (CMS/HCC) (HCC) EGFR STAT 03/24/2022 8:16 AM CDT PROTIME-INR STAT 03/24/2022 8:16 AM CDT BASIC METABOLIC PANEL STAT 03/24/2022 8:16 AM CDT documented in this encounter Results * US JONATHAN (04/11/2022 11:28 AM CDT) Anatomical Region Laterality Modality Vascular N/A Ultrasound 04/11/2022 11:0 6 AM CDT Narrative 04/11/2022 11:36 AM CDT [address] [place] [address] Ankle Brachial Index Report Patient Name: TESS BENEDICT ?? : 1935 (86y 4m) ??Gender: F Study Date: 04/11/2022 11:06:00 AM Supervisor Print Line: Order Provider: STALIN ARAUZ Quality: Adequate Ref.Provider: [...] Procedure Note Eric Bashir MD - 04/11/[address] [place] [address] Ankle Brachial Index Report Patient Name: TESS BENEDICTPatient ID: [id number] : 1935 (86y 4m) Gender: FStudy Date: 04/11/2022 11:06:00 AM Order Provider: STALIN ARAUZQuality: Adequate Ref.Provider: [...] Eric Bashir 2022-04-11 11:36:45 CDT us Stalin Arauz MD [facility] PROCEDURES Final Result * PERIPHERAL ANGIOGRAPHY, ANGIOGRAPHY UNILATERAL EXTREMITY S&I 76541, AORTOG ABD+JENNIFFER LOW EXTRM (03/24/2022 9:39 AM CDT) Anatomical Region Laterality Modality X-Ray Angiograph y 03/24/2022 Narrative 03/27/2022 6:59 AM CDT Night Up Job ID: [id number] Night Up Document ID: [id number] Dictated date/time: [id number] PERIPHERAL ANGIOGRAPHY REPORT 86 year old with history of ??peripheral vascular disease and with known occlusion of the superficial femoral arteries bilaterally. ??She underwent recanalization and angioplasty of the left superficial femoral artery, left iliac artery a few weeks ago. ??She now presents for to attempt staged intervention on the right superficial femoral artery. ??She has history of bilateral total knee prostheses. INDICATION FOR PROCEDURE Peripheral arterial disease with right lower extremity claudication. PROCEDURES PERFORMED Bilateral lower extremity angiography, attempted intervention on the right superficial femoral artery. After obtaining informed consent, patient was brought to the cardiac brick and blocker aid labor suite. ??She was prepped and draped in usual sterile fashion. ?? Conscious sedation was administered by the brick and blocker aid labor staff under my supervision. ??A total of 5 mg of Versed and 125 mg of fentanyl and 25 mg of Benadryl were given in divided doses. ??See procedure log for further details. ??Total sedation time was 45 minutes. A 5-Ugandan sheath was inserted in the left femoral artery. ??Ipsilateral lower extremity angiography was then performed showing patent previously implanted stent in the proximal segment of the left superficial femoral artery as well as patent prior angioplasty site in the distal superficial femoral artery ascending popliteal artery. ??There was 3 vessel runoff on the left. ??The previously implanted stents in the external iliac and common iliac arteries on the left were widely patent. The contralateral iliac vessel was cannulated using crossover catheter. ?? The iliac vessels had mild disease. ??The superficial femoral artery was occluded at the ostium. ??There was reconstitution distally via profunda at level of popliteal artery which had 60% stenosis. ??The popliteal artery was widely patent. ??There was 3 vessel runoff with continuous [address] to the ankle. ?? The area of occlusion was attempted to be crossed using a combination of Aqua wire and Aqua catheter. ??Going through the proximal cap was extremely difficult. ??I was able to later on advance along the contour of the vessel all the way to the level of popliteal artery, however, could not get back into the true lumen. ??Attempts for the true lumen re-entry using the Outback device was not successful despite multiple attempts. ??I then abandoned further attempts. IMPRESSION 1. Patent previously implanted stents in [...] lumen despite the use of re-entry device as described above. 5. Successful vascular access closure. CARE PLAN Will keep the patient on anti-platelet therapy and add Pletal to her medical regimen. ??Re-evaluate in the office if she has significant symptoms to re-attempt intervention from either pedal approach or reattempt from antegrade approach. Stalin Arauz MD Job ID/Internal Job ID: ??[id number] Stalin Arauz MD CV CARDIAC CATH PROCEDURES Farzana hernandez Result * eGFR (03/24/2022 8:16 AM CDT) [facility] eGFR 86 mL/min/1. 73 m2 [facility] [...] interpretive data was last reviewed 2021. Blood 03/24/2022 8:16 AM CDT 03/24/2022 8:19 AM CDT Stalin Arauz MD LAB BLOOD ORDERABLES Final Resu lt Performing Organization Address [facility] de Phone Number RACHELLKAMRON [facility]ONC[facility] ([place]) 1 [facility] [employer] [place] [place] [address] * Protime-INR (03/24/2022 8:16 AM CDT) PT 12.0 9.2 - 13.5 sec [facility] ([place]) INR 1.1 0.9 - 1.2 [facility] ([place]) Comment: Interpretive data Oral anticoagulant therapeutic ranges: Venous thromboembolism prophylaxis or treatment: 2.0-3.0 CARDIOLOGY Standard range: 2.0-3.0 High-intensity range: 2.5-3.5 Refer to indication-specific guidelines for appropriate target ranges for prosthetic heart valve replacement. Current interpretive data was last revised on 2019. Blood 03/24/2022 8:16 AM CDT 03/24/2022 8:19 AM CDT Stalin Arauz MD LAB BLOOD ORDERABLES Final Resu lt Performing Organization Address [facility] Co de Phone Number RACHELLKAMRON LEONCIO ([place]) [address] [facility] [place] [address] * Basic metabolic panel (03/24/2022 8:16 AM CDT) Sodium 138 135 - 145 mmol/L [facility] ([place]) Potassium, pl 4.2 3.3 - 4.9 mmol/L [facility] ([place]) Chloride 101 97 - 110 mmol/L [facility] ([place]) CO2 28 22 - 32 mmol/L [facility] ([place]) Anion gap 9 2 - 15 mmol/L [facility] ([place]) BUN 17 8 - 25 mg/dL [facility] ([place]) Creatinine 0.69 0.60 - 1.10 mg/dL [facility] ([place]) Glucose 92 70 - 199 mg/dL [facility] ([place]) Comment: Interpretive Data Fasting glucose [...] interpretive data was last revised 2017. Calcium 9.4 8.5 - 10.3 mg/dL [facility] ([place]) Blood 03/24/2022 8:16 AM CDT 03/24/2022 8:19 AM CDT us Stalin Arauz MD LAB BLOOD ORDERABLES Final Resu lt CHIDI [facility] ([place]) 1 [facility] [place] [address] documented in this encounter Visit Diagnoses Diagnosis [...] MAR Action Action Date Dose Rate Site ALPRAZolam (XANAX) tablet 0.5 mg 0.5 mg, oral, Once, On [place] 03/24/22 at 0845, For 1 dose, Pre-Procedure (CV) Given 03/24/2022 8:20 AM CDT 0.5 mg Carrier Fluids for Secondary Infusion - 0.9% Sodium Chloride 30 mL, intravenous, As needed, For priming tubing and/or flushing, Starting on [place] 03/24/22 at 0810, Pre-Procedure (CV), 0-250 ml/hr to flush line after IV infusions when no maintenance IV ordered. Infuse 30mL at the same rate as the secondary infusion. Run as primary IV, not intended for KVO.Indications:Peripher al arterial disease (HCC) Given 03/24/2022 8:21 AM CDT 30 mL diphenhydrAMINE (BENADRYL) tab/cap 25 mg 25 mg, oral, Once, On [place] 03/24/22 at 0845, For 1 dose, Pre-Procedure (CV) Given 03/24/2022 8:20 AM CDT 25 mg sodium chloride 0.9% flush 0.5-20 mL 0.5-20 mL, intra-catheter, Every 8 hours scheduled, First dose on [place] 03/24/22 at 0845, Pre-Procedure (CV), Flush volume based on line type and size.Indications:Periphe ral arterial disease (HCC) sodium chloride 0.9% flush 0.5-20 mL 0.5-20 mL, intra-catheter, As needed, line care, Starting on [place] 03/24/22 at 0810, Pre-Procedure (CV), Flush volume based on line type and size. Flush before and after each use.Indications:Peripher al arterial disease (HCC) sodium chloride 0.9% infusion 250 mL/hr, intravenous, Continuous, Starting on [place] 03/24/22 at 1030, For 4 hours, Recovery (CV) Rate/Dose Change 03/24/2022 9:55 AM CDT 250 mL/hr 250 mL/hr documented in this encounter Active and Recently Administered Medications Times are shown in CDT. Scheduled Medication Order 03/22/2022 03/23/2022 03/24/2022 ALPRAZolam (XANAX) tablet 0.5 mg (COMPLETED) 0.5 mg, oral, Once, On [place] 03/24/22 at 0845, For 1 dose, Pre-Procedure (CV) 0820 (Given - Provid er: Rk Burgos RN) clopidogreL (PLAVIX) tablet 600 mg 600 mg, oral, Once, On [place] 03/24/22 at 1015, For 1 dose 1015 (Due) diphenhydrAMINE (BENADRYL) tab/cap 25 mg (COMPLETED) 25 mg, oral, Once, On [place] 03/24/22 at 0845, For 1 dose, Pre-Procedure (CV) 0820 (Given - Provid er: Rk Burgos RN) sodium chloride 0.9% flush 0.5-20 mL 0.5-20 mL, intra-catheter, Every 8 hours scheduled, First dose on [place] 03/24/22 at 0845, Pre-Procedure (CV), Flush volume based on line type and size. 0845 (Due) Continuous Medication Order 03/22/2022 03/23/2022 03/24/2022 sodium chloride 0.9% infusion 250 mL/hr, intravenous, Continuous, Starting on [place] 03/24/22 at 1030, For 4 hours, Recovery (CV) 0955 (Rate/Dose Espino ge - Provider: Zuleika Villarreal RN)1258 (Stopped - Provider: Zuleika Villarreal RN) PRN Medication Order 03/22/2022 03/23/2022 03/24/2022 Carrier Fluids for Secondary Infusion - 0.9% Sodium Chloride 30 mL, intravenous, As needed, For priming tubing and/or flushing, Starting on [place] 03/24/22 at 0810, Pre-Procedure (CV), 0-250 ml/hr to flush line after IV infusions when no maintenance IV ordered. Infuse 30mL at the same rate as the secondary infusion. Run as primary IV, not intended for KVO. 0821 (Given - Provid er: Rk Burgos RN) diphenhydrAMINE (BENADRYL) injection (CANCELED) Administer over 2 Minutes, As needed, Starting on [place] 03/24/22 at 0853, Intra-Procedure (CV) 0853 (Given - Provid er: Katherine Hernandez RN) fentaNYL (SUBLIMAZE) preservative free injection (CANCELED) As needed, Starting on [place] 03/24/22 at 0850, Intra-Procedure (CV) 0850 (Given - Provid er: Katherine Hernandez RN)0856 (Given - Provider: Katherine Hernandez RN)0934 (Given - Provider: Katherine Hernandez RN) lidocaine PF (XYLOCAINE) 10 mg/mL (1 %) preservative free injection (CANCELED) As needed, Starting on [place]y 10 at 0856, Intra-Procedure (CV) 0856 (Given - Provid er: Stalin Arauz MD) midazolam (VERSED) 1 mg/mL preservative free injection (CANCELED) Administer over 2 Minutes, As needed, Starting on [place]y 10 at 0850, Intra-Procedure (CV) 0850 (Given - Provid er: Katherine Hernandez RN)0856 (Given - Provider: Katherine Hernandez RN)0932 (Given - Provider: Katherine Hernandez RN) sodium chloride 0.9% flush 0.5-20 mL 0.5-20 mL, intra-catheter, As needed, line care, Starting on Katy 03/24/22 at 0810, Pre-Procedure (CV), Flush volume based on line type and size. Flush before and after each use. sodium chloride 0.9% infusion (COMPLETED) Continuous PRN, Starting on Katy 03/24/22 at 0840, Intra-Procedure (CV) 0840 (New Bag - Prov ider: Katherine Hernandez RN) documented in this encounter Orders Medications Ordered That Alhaji ht Not Have Been Administered Count Last Ordered Date First Ordered Date clopidogreL (PLAVIX) tablet 600 mg 1 2021 diphenhydrAMINE (BENADRYL) injection 1 11/2021 fentaNYL (SUBLIMAZE) preserv ative free injection 1 03/24/2022 lidocaine PF (XYLOCAINE) 10 mg/mL (1 %) preservative free injection 1 03/24/2022 midazolam (VERSED) 1 mg/mL p reservative free injection 1 03/24/2022 sodium chloride 0.9% flush 0.5-20 mL 2 11/2021 sodium chloride 0.9% infusion 2 03/24/2022 Nursing Count Last Ordered Date First Orde red Date TELEMETRY MONITORING 1 03/24/2022 Discharge Count Last Ordered Date First Orde red Date DISCHARGE PATIENT 1 03/24/2022 CORE MEASURES Count Last Ordered Date First Ord ered Date REASON FOR NO VTE PROPHYLAXIS AT ADMISSION 1 03/24/2022 documented in this encounter Care Teams Accuracy Expert Relationship Specialty Start Date End Date Pepper Morgan MD PCP - General 09/16/16 Hank Garibay MD [address] [facility] [address] WARNER Sheridan [facility] [address] [place] [address] Surgeon Orthopedic Surgery 03/27/17 Jacky Murry MD [address] [facility] [address] WARNER Sheridan [facility] [address] [place] [address] Ophthalmology 03/27/17 Puma Mckenzie MD [address] [facility] [address] WARNER Sheridan [facility] [address] [place] [address] Surgeon Orthopedic Surgery 07/11/19 Neha Jackson, PT Physical Therapist Physical Therapy 12/01/21 documented as of this encounter
--- OUTSIDE RECORDS SUMMARY | 2024-06-18 18:56 | XMS_ITS | Encounter Summary ---
Author Organization [facility] Address [address] [facility] [address] [place] [address] Care Team Providers Care Regrader Name Role Phone Pepper Morgan MD Primary Care Provider + [phone] Hank Garibay MD Unavailable [phone] Jacky Murry MD Unavailable [phone] Puma Mckenzie MD Unavailable [phone] Neha Jackson PT Unavailable Unavailable Reason for Visit * Reason Onset Date Comments med update would like more called in 01/27/2022 Encounter Details Date Type Department Care Team (Late st Contact Info) Description 01/27/2022 Telephone [facility] [address] [place] [phone] Pepper Morgan MD [address] [place] [address] med update would like more called in Social History Tobacco Use Types Packs/Day Years [...] on file 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 Patient will continue taking the medication since it has only been a few days and will get the nextrefill and give an update before she runs out of the medication. * Telephone Encounter - Katy Lopes RN - 01/27/2022 11:07 AM CDT Left message to return call. * Telephone Encounter - Vickie Araujo - 01/27/2022 9:42 AM CDT Patient calling she is supposed to let us know how the clonazepam is working. It is working fine and she would like more called in. Kyle Sparks. Cbn: [phone] documented in this encounter Plan [...] on filedocumented in this encounter Care Teams Regrader Relationship Specialty Start Date End Date Pepper Morgan MD PCP - General 09/16/16 Hank Garibay MD [address] [facility] [address] WARNER [place] [facility] [address] [place] [address] Surgeon Orthopedic Surgery 03/27/17 Jacky Murry MD [address] [facility] [address] WARNER [place] [facility] [address] [place] [address] Ophthalmology 03/27/17 Puma Mckenzie MD [address] [facility] [address] WARN[address] [place] [place] [address] Surgeon Orthopedic Surgery 07/11/19 Neha Jackson PT Physical Therapist Physical Therapy 12/01/21 documented as of this encounter
--- OUTSIDE RECORDS SUMMARY | 2024-06-18 18:56 | XMS_ITS | Encounter Summary ---
Author Organization [facility] Address [address] [place] [address] Care Team Providers Care Excavator Operator Name Role Phone Pepper Morgan MD Primary Care Provider + [phone] Hank Garibay MD Unavailable [phone] Jacky Murry MD Unavailable [phone] Puma Mckenzie MD Unavailable [phone] Neha Jackson PT Unavailable Unavailable Reason for Visit * Auth/Cert Specialty Diagnoses / Procedures Referred By Contac t Referred To Contact Diagnoses Peripheral vascular disease, unspecified PERIPHERAL VASCULAR DISEASE, UNSPECIFIED/PERIPHERAL ANGIOGRAPHY Procedures CHG ANGIO EXTERMITY BILAT PERIPHERAL ANGIOGRAPHY Referral ID Status Reason Start Date Expiration Date Visits Re quested Visits Authorized [id number] 1 1 Encounter Details Date Type Department Care Team (Late st Contact Info) Description 03/24/2022 8:30 AM CDT - 03/24/2022 10:00 AM CDT Surgery [facility] Cardiac Catheterization [address] [place] [address] Stalin Arauz MD [address] [place], [place] [address] [address] PERIPHERAL ANGIOGRAPHY Surgery Details Date/Time Status Location OR Service Patient Class Case Class Case Type Trauma Case? 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 Gender Identity Not on file Sexual Orientation Not on file Occupation Industry Job Start Date Job End Date retired Not on file Not on file Not on file documented as of this encounter Last Filed Vital Signs Vital Sign Reading Time Taken Comments Blood Pressure 164/87 03/24/2022 9:55 AM CDT Pulse 69 03/24/2022 9:55 AM CDT Temperature 36.6 ??C (97.8 ??F) 03/24/2022 8:01 AM CD T Respiratory Rate 22 03/24/2022 9:55 AM CDT Oxygen Saturation 89% 03/24/2022 9:55 AM CDT Inhaled Oxygen Concentration - - Weight - - Height - - Body Mass Index - - documented in this encounter Discharge Instructions * Discharge Instructions* Rk Burgos RN - 03/24/2022 9:49 AM CDT Instructions [...] have a new follow-up appointment in the [facility] office with Dr. Arauz on April 18, 2022 @ 11:00 a.m. You need to have an JONATHAN exam done 3-5 days PRIOR to seeing him. Please call our Centralized Scheduling Department at [phone] to have this set up. You may [...] and Physical History of Present Illness: Tess Benedict is a 86 y.o. female with a [...] of nose 09/2008 CHF (congestive heart failure) ([facility]/HCC) ([facility]) Cough DVT (deep venous thrombosis) (CMS/[facility]) ([facility]) 1976 upper left arm near [...] ARTHROPLASTY Left 11/01/2021 Dr. Mckenzie, [facility]. Allergies Allergen Reactions Celecoxib Anaphylaxis Scopolamine [...] disease (CMS/HCC) (HCC) ANGIOGRAPHY UNILATERAL EXTREMITY S&I 91615 Routine 03/24/2022 9:39 AM CDT Peripheral arterial [...] CDT Narrative 04/11/2022 11:36 AM CDT [address] [place] [address] Ankle Brachial Index Report Patient Name: TESS BENEDICT ?? : 1935 (86y 4m) ??Gender: F Study Date: 04/11/2022 11:06:00 AM Poker Supervisor: Saranya Provider: STALIN ARAUZ Quality: Adequate Ref.Provider: [...] Procedure Note Eric Bashir MD - 04/11/2022 [place] [address] Ankle Brachial Index Report Patient Name: TESS BENEDICTPatient ID: [id number] : 1935 (86y 4m) Gender: FStudy Date: [...] 2022-04-11 11:36:45 CDT us Stalin Arauz MD IMG US PROCEDURES Final Result * PERIPHERAL ANGIOGRAPHY, ANGIOGRAPHY UNILATERAL EXTREMITY S&I 21602, AORTOG ABD+JENNIFFER LOW EXTRM (03/24/2022 9:39 AM CDT) Anatomical Region Laterality Modality X-Ray Angiograph y 03/24/2022 Narrative 03/27/2022 6:59 AM CDT [employer] Job ID: [id number] [employer] Document ID: [id number] Dictated date/time: [id number] PERIPHERAL ANGIOGRAPHY REPORT 86 year old with [...] consent, patient was brought to the cardiac label coder suite. ??She was prepped and draped in usual sterile fashion. ?? Conscious sedation was administered by the label coder staff under my supervision. ??A total of [...] Stalin Arauz MD Job ID/Internal Job ID: ??[id number] Stalin Arauz MD CV CARDIAC CATH PROCEDURES Farzana l Result * eGFR (03/24/2022 8:16 AM CDT) [facility] eGFR 86 mL/min/1. 73 m2 CHIDI [...] MD LAB BLOOD ORDERABLES Final Resu lt [facility] [address] [facility] [place] [address] * Protime-INR (03/24/2022 8:16 AM CDT) PT 12.0 9.2 - 13.5 sec CHIDI [facility] ([place]) INR 1.1 0.9 - 1.2 [facility] ([place]) Comment: Interpretive data Oral anticoagulant therapeutic ranges: Venous thromboembolism prophylaxis or treatment: 2.0-3.0 CARDIOLOGY Standard range: 2.0-3.0 High-intensity range: 2.5-3.5 Refer to indication-specific guidelines for appropriate target ranges for prosthetic heart valve replacement. Current interpretive data was last revised on 2019. Blood 03/24/2022 8:16 AM CDT 03/24/2022 8:19 AM CDT Stalin Arauz MD LAB BLOOD ORDERABLES Final Resu lt [facility] ([place]) [address] [facility] [place] [address] * Basic metabolic panel (03/24/2022 8:16 AM CDT) Sodium 138 135 - 145 mmol/L [facility] ([place]) Potassium, pl 4.2 3.3 - 4.9 mmol/L [facility] ([place]) Chloride 101 97 - 110 mmol/L [facility]) CO2 28 22 - 32 mmol/L [facility] ([place]) Anion gap 9 2 - 15 mmol/L [facility] ([place]) BUN 17 8 - 25 mg/dL [facility] ([place]) Creatinine 0.69 0.60 - 1.10 mg/dL [facility] ([place]) Glucose 92 70 - 199 mg/dL [facility] ([place]) Comment: Interpretive Data Fasting glucose [...] 2017. Calcium 9.4 8.5 - 10.3 mg/dL [facility] ([place]) Blood 03/24/2022 8:16 AM CDT 03/24/2022 8:19 AM CDT us Stalin Arauz MD LAB BLOOD ORDERABLES Final Resu lt [facility] ([place]) [address] [facility] Department [place] [address] documented in this encounter Visit Diagnoses Diagnosis [...] not intended for KVO.Indications:Peripheral arterial disease (HCC) Given 03/24/2022 8:21 AM CDT 30 mL diphenhydrAMINE (BENADRYL) injection Administer over 2 Minutes, As needed, Starting on Katy 03/24/22 at 0853, Intra-Procedure (CV) Given 03/24/2022 8:53 AM CDT 25 mg diphenhydrAMINE (BENADRYL) tab/cap 25 mg 25 mg, oral, Once, On Katy 03/24/22 at 0845, For 1 dose, Pre-Procedure (CV) Given 03/24/2022 8:20 AM CDT 25 mg fentaNYL (SUBLIMAZE) preservative free injection As needed, Starting on Katy 03/24/22 at 0850, Intra-Procedure (CV) Given 03/24/2022 9:34 AM CDT 25 mcg Given 03/24/2022 8:56 AM CDT 50 mcg Given 03/24/2022 8:50 AM CDT 50 mcg lidocaine PF (XYLOCAINE) 10 mg/mL (1 %) preservative free injection As needed, Starting on Katy 03/24/22 at 0856, Intra-Procedure (CV) Given 03/24/2022 8:56 AM CDT 5 mL Left Groin midazolam (VERSED) 1 mg/mL preservative free injection Administer over 2 Minutes, As needed, Starting on Katy 03/24/22 at 0850, Intra-Procedure (CV) Given 03/24/2022 9:32 AM CDT 1 mg Given 03/24/2022 8:56 AM CDT 1 mg Given 03/24/2022 8:50 AM CDT 2 mg sodium chloride 0.9% flush 0.5-20 mL 0.5-20 mL, intra-catheter, Every 8 hours scheduled, First dose on Katy 03/24/22 at 0845, Pre-Procedure (CV), Flush volume based on line type and size.Indications:Peripheral arterial disease (HCC) sodium chloride 0.9% flush 0.5-20 mL 0.5-20 mL, intra-catheter, As needed, line care, Starting on Katy 03/24/22 at 0810, Pre-Procedure (CV), Flush volume based on line type and size. Flush before and after each use.Indications:Peripheral arterial disease (HCC) sodium chloride 0.9% infusion Continuous PRN, Starting on Katy 03/24/22 at 0840, Intra-Procedure (CV) New Bag 03/24/2022 8:40 AM CDT 100 mL/hr 100 mL/hr sodium chloride 0.9% infusion 250 mL/hr, [...] (CV) 0853 (Given - Provid er: Katherine Hernnadez RN) fentaNYL (SUBLIMAZE) preservative free injection (CANCELED) As needed, Starting on Katy 03/24/22 at 0850, Intra-Procedure (CV) 0850 (Given - Provid er: Katherine Hernandez RN)0856 (Given - Provider: Katherine Hernandez RN)0934 (Given - Provider: Katherine Hernandez RN) lidocaine PF (XYLOCAINE) 10 mg/mL (1 %) preservative free injection (CANCELED) As needed, Starting on Katy 03/24/22 at 0856, Intra-Procedure (CV) 0856 (Given - [...] clopidogreL (PLAVIX) tablet 600 mg 1 2021 sodium chloride 0.9% flush 0.5-20 mL 2 11/2021 sodium chloride 0.9% infusion 1 03/24/2022 Nursing Count Last Ordered Date First Orde red Date TELEMETRY MONITORING 1 03/24/2022 Discharge Count Last Ordered Date First Orde red Date DISCHARGE PATIENT 1 03/24/2022 CORE MEASURES Count Last Ordered Date First Ord ered Date REASON FOR NO VTE PROPHYLAXIS AT ADMISSION 1 03/24/2022 documented in this encounter Care Teams Excavator Operator Relationship Specialty Start Date End Date Pepper Morgan MD PCP - General 09/16/16 Hank Garibay MD [address] [facility] [address] WARNER [place] [facility] [address] [place] [address] Surgeon Orthopedic Surgery 03/27/17 Jacky Murry MD [address] [facility] [address] WARNER [place] [facility] [address] [place] [address] Ophthalmology 03/27/17 Puma Mckenzie MD [address] [facility] [address] [place] [address] Surgeon Orthopedic Surgery 07/11/19 Neha Jackson, PT Physical Therapist Physical Therapy 12/01/21 documented as of this encounter
--- OUTSIDE RECORDS SUMMARY | 2024-06-18 18:56 | XMS_ITS | Encounter Summary ---
Author Organization [facility] Address [address] [facility] [address] [place] [address] Care Team Providers Care Log Deck Tender Name Role Phone Pepper Morgan MD Primary Care Provider + [phone] Hank Garibay MD Unavailable [phone] Jacky Murry MD Unavailable [phone] Puma Mckenzie MD Unavailable [phone] Neha Jackson PT Unavailable Unavailable Encounter Details Date Type Department Care Team (Late st Contact Info) Description 04/20/2022 Telephone [facility] at [address] [place] [id number] Hai Dalton MA Social History Tobacco [...] on file Legal Sex Female 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 Per Dr. Arauz patient to restart metolazone 2.5mg every other day along with lasix 40mg every day. Recheck BNP and BMP in one weekand follow daily weights. * Telephone Encounter - Hai Dalton MA - 04/20/2022 10:14 AM CDT ----- Message from Stalin Arauz MD sent at 04/18/2022 6:13 PM CDT ----- BNP is elevated suggesting some of her symptoms are reflective of volume overload. Re start metolazone 2.5 every other day along with daily lasix and follow daily weight. Recheck BMP/ BNP in one week Stalin Arauz MD ----- Message ----- From: Interface, Lab Results In Sent: 04/18/2022 2:15 PM CDT To: Stalin Arauz MD documented [...] encounter Results * (ABNORMAL) Basic metabolic panel (04/28/2022 8:30 AM DIAGNOSTIC RADIOLOGIC TECHNOLOGIST) Sodium 127(L) 135 - 145 mmol/L [facility] ([place]) Potassium, pl 3.8 3.3 - 4.9 mmol/L [facility] ([place]) Chloride 87(L) 97 - 110 mmol/L [facility] ([place]) CO2 30 22 - 32 mmol/L [facility] ([place]) Anion gap 11 2 - 15 mmol/L [facility] ([place]) BUN 20 8 - 25 mg/dL [facility] ([place]) Creatinine 0.68 0.60 - 1.10 [...] 2017. Calcium 9.3 8.5 - 10.3 mg/dL [facility] ([place]) Blood 04/28/2022 8:30 AM DIAGNOSTIC RADIOLOGIC TECHNOLOGIST 04/28/2022 9:58 AM DIAGNOSTIC RADIOLOGIC TECHNOLOGIST us Stalin Arauz MD LAB BLOOD ORDERABLES Final [facility] lt [facility] ([place]) [address] [facility] Department [place] [address] * (ABNORMAL) Pro B-type natriuretic peptide (04/28/2022 8:30 AM DIAGNOSTIC RADIOLOGIC TECHNOLOGIST) NT-proBNP 1,801(H) <=450 pg/mL [facility] ([place]) Comment: Interpretive [...] Revised Date: 2018. 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, bilateral legs (HCC)- Primary Shortness of breath documented in this encounter Care Teams Log Deck Tender Relationship Specialty Start Date End Date Pepper Morgan MD PCP - General 09/16/16 Hank Garibay MD [address] [facility] [address] WARN[address] [place] [facility] [address] [place] [address] Surgeon Orthopedic Surgery 03/27/17 Jacky Murry MD [address] [facility] [address] WARNER [place] [facility] [address] [place] [address] Ophthalmology 03/27/17 Puma Mckenzie MD [address] [facility] [address] [place] [address] Surgeon Orthopedic Surgery 07/11/19 Neha Jackson PT Physical Therapist Physical Therapy 12/01/21 documented as of this encounter
--- OUTSIDE RECORDS SUMMARY | 2024-06-18 18:56 | XMS_ITS | Encounter Summary ---
Author Organization [facility] Medical [facility] Address [address] [facility] [address] [place] [address] Care Team Providers Care Outsole Beveler Name Role Phone Pepper Morgan MD Primary Care Provider + [phone] Hank Garibay MD Unavailable [phone] Jacky Murry MD Unavailable [phone] Puma Mckenzie MD Unavailable [phone] Neha Jackson PT Unavailable Unavailable Encounter Details Date Type Department Care Team (Late st Contact Info) Description 04/13/2022 Telephone [facility] Associate Professor Of Automation at [address] [place] [phone] Hai Dalton [...] file 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 Arauz's response to JONATHAN. Dr will discuss at upcoming ov. * Telephone Encounter - Hai Dalton MA - 04/13/2022 11:29 AM CDT ----- Message from Stalin Arauz MD sent at 04/11/2022 12:38 PM CDT ----- Better on the left post intervention. Still markedly impaired on the right which is not surprising given failure to do angioplasty. Will Discuss during upcoming clinic visit ----- Message ----- From: Interface, Cardiology Results In Sent: 04/11/2022 11:36 AM CDT To: Stalin Arauz MD documented [...] on filedocumented in this encounter Care Teams Outsole Beveler Relationship Specialty Start Date End Date Pepper Morgan MD PCP - General 09/16/16 Hank Garibay MD [address] [facility] [address] WARNER [place] [address] [place] [address] Surgeon Orthopedic Surgery 03/27/17 Jacky Murry MD [address] [place] [address] DR WARNER [place] [facility] [address] [place] [address] Ophthalmology 03/27/17 Puma Mckenzie MD [address] [facility] [address] WARNER [place] [address] [address] Surgeon Orthopedic Surgery 07/11/19 Neha Jackson, PT Physical Therapist Physical Therapy 12/01/21 documented as of this encounter
--- OUTSIDE RECORDS SUMMARY | 2024-06-18 18:56 | XMS_ITS | Encounter Summary ---
Author Organization [facility] Address [address] [place] [address] Care Team Providers Care Nurse Navigator Name Role Phone Pepper Morgan MD Primary Care Provider + [phone] Hank Garibay MD Unavailable [phone] Jacky Murry MD Unavailable [phone] Puma Mckenzie MD Unavailable [phone] Neha Jackson PT Unavailable Unavailable Encounter Details Date Type Department Care Team (Late st Contact Info) Description 02/18/2022 8:30 AM CDT - 02/18/2022 10:00 AM CDT Surgery [facility] Cardiac Catheterization [address] [place] [address] Stalin Arauz MD [address] [place] [address] PERIPHERAL ANGIOGRAPHY Surgery Details Date/Time Status Location OR Service Patient Class Case Class Case Type Trauma Case? 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 Gender Identity Not on file Sexual Orientation Not on file Occupation Industry Job Start Date Job End Date retired Not on file Not on file Not on file documented as of this encounter Last Filed Vital Signs Vital Sign Reading Time Taken Comments Blood Pressure 142/78 02/18/2022 9:55 AM CDT Pulse 78 02/18/2022 9:55 AM CDT Temperature 36.4 ??C (97.6 ??F) 02/18/2022 8:05 AM CD T Respiratory Rate 18 02/18/2022 9:55 AM CDT Oxygen Saturation 99% 02/18/2022 9:55 AM CDT Inhaled Oxygen Concentration - - Weight 86.2 kg (190 lb) 02/18/2022 8:05 AM CDT Height 152.4 cm (5') 02/18/2022 8:05 AM CDT Body Mass Index 37.11 02/18/2022 8:05 AM CDT documented in this encounter Discharge Instructions [...] Primary Care Physician in 2-3 weeks and Turn Down Attendant in 4-6 weeks. * Appointments* Suze Nogueira [...] AORTOGRAM ABDOMINAL + BILATERAL LOW EXTRM S&I 50860 ANGIOGRAPHY - UNILATERAL EXTREMITY S&I 82689 FIBER ARTIST STENT ILIAC, UNILATERAL, FIRST VESSEL 08609 FIBER ARTIST STENT FEM-POP, UNILATERAL, FIRST VESSEL 77224 I have reviewed the prior History and [...] TOTAL HIP ARTHROPLASTY Left 11/01/2021 Dr. Mckenzie, [facility]. Family History Problem Relation Age of Onset [...] 11:09 AM CDT REVENDVAS FEMPOP UN WSTN 31734 Routine 02/18/2022 9:39 AM CDT Peripheral arterial disease (CMS/HCC) (HCC) REVAS ENDOVASILIAC W STNT 25564 Routine 02/18/2022 9:39 AM CDT Peripheral arterial disease (CMS/HCC) (HCC) ANGIOGRAPHY UNILATERAL EXTREMITY S&I 50185 Routine 02/18/2022 9:39 AM CDT Peripheral arterial disease (CMS/HCC) (HCC) AORTOG ABD+JENNIFFER LOW EXTRM Routine 02/18/2022 9:39 AM CDT Peripheral arterial disease (CMS/HCC) (HCC) CARDIAC CATHETERIZATION Routine 02/19/20 9:39 AM CDT Peripheral arterial disease (CMS/HCC) (HCC) documented in this encounter Results * ECG 12 lead (02/18/2022 11:09 AM CDT) 02/18/2022 11:0 9 AM CDT Narrative [facility] - 02/18/2022 1:39 PM CDT Vent Rate: 68 bpm RR Interval: 878 msec OR Interval: 0 msec QRS Duration: 82 msec QT Interval: 423 msec QTC Interval: 440 msec P-R-T Lawrence: 0 - 79 - 37 degrees ATRIAL FIBRILLATION ABNORMAL RHYTHM ECG NO SIGNIFICANT CHANGE SINCE PREVIOUS TRACING Electronically Signed By: Eric Bashir us Stalin Arauz MD ECG ORDERABLES Final Result [facility] * PERIPHERAL ANGIOGRAPHY, AORTOG ABD+JENNIFFER LOW EXTRM, ANGIOGRAPHY UNILATERAL EXTREMITY S&I 10473, REVAS ENDOVASILIAC W STNT 54560, REVENDVAS FEMPOP UN WSTN 54855 (02/18/2022 9:39 AM CDT) Anatomical Region Laterality Modality X-Ray Angiograph y 02/18/2022 Narrative 02/26/2022 8:44 AM CDT [employer] Job ID: [id number] [employer] Document ID: [id number] Dictated date/time: [id number] PERIPHERAL ANGIOGRAPHY REPORT An 86-year-old with bilateral [...] consent, patient was brought to the cardiac technical laboratory asst suite. She was prepped and draped in usual sterile fashion. ??Conscious sedation was administered by the technical laboratory asst staff under my supervision. ??A total of 4 mg of Versed, 100 mcg of fentanyl and 50 mg of Benadryl were given in divided doses. ??See procedure log for further details. ??Total sedation time 60 minutes. ??A 5-English sheath was inserted in the right femoral artery. ??Ipsilateral lower extremity angiography was performed using sheath injection. ??Pigtail catheter was advanced to the abdominal aorta and used to perform aortography in the AP projection. ??The contralateral iliac vessel was cannulated using crossover catheter, was advanced over a wire to the common femoral artery and later exchanged to 8-English contra sheath, was used to perform intervention [...] Stalin Arauz MD Job ID/Internal Job ID: ??[id number] Stalin Arauz MD CV CARDIAC CATH PROCEDURES [...] Given 02/18/2022 7:40 AM CDT 0.5 mg bivalirudin (ANGIOMAX) injection As needed, Starting on Mon02/18/22 at 0854, Intra-Procedure (CV) Given 02/18/2022 8:54 AM CDT 64.65 mg Carrier Fluids for Secondary Infusion - 0.9% Sodium Chloride 30 mL, intravenous, As needed, For priming tubing and/or flushing, Starting on Mon02/18/22 at 0731, Pre-Procedure (CV), 0-250 ml/hr to flush line after IV infusions when no maintenance IV ordered. Infuse 30mL at the same rate as the secondary infusion. Run as primary IV, not intended for KVO.Indications:Peripheral arterial disease (HCC) diphenhydrAMINE (BENADRYL) injection Administer over 2 Minutes, As needed, Starting on Mon02/18/22 at 0843, Intra-Procedure (CV) Given 02/18/2022 8:43 AM CDT 50 mg diphenhydrAMINE (BENADRYL) tab/cap 25 mg 25 mg, oral, Once, On Mon02/18/22 at 0815, For 1 dose, Pre-Procedure (CV) Given 02/18/2022 7:40 AM CDT 25 mg fentaNYL (SUBLIMAZE) preservative free injection As needed, Starting on Mon02/18/22 at 0842, Intra-Procedure (CV) Given 02/18/2022 9:20 AM CDT 50 mcg Given 02/18/2022 8:42 AM CDT 50 mcg lidocaine PF (XYLOCAINE) 10 mg/mL (1 %) preservative free injection As needed, Starting on Mon02/18/22 at 0844, Intra-Procedure (CV) Given 02/18/2022 8:44 AM CDT 5 mL Right Groin midazolam (VERSED) 1 mg/mL preservative free injection Administer over 2 Minutes, As needed, Starting on Mon02/18/22 at 0843, Intra-Procedure (CV) Given 02/18/2022 9:02 AM CDT 2 mg Given 02/18/2022 8:43 AM CDT 2 mg pramipexole (MIRAPEX) tablet 0.125 mg 0.125 [...] Count Last Ordered Date First Ordered Date Carrier Fluids for Secondary Infusion - 0.9% Sodium Chloride 1 02/18/2022 sodium chloride 0.9% flush 0.5-20 mL 1 07/2021 CORE MEASURES Count Last Ordered Date First Ord ered Date REASON FOR NO VTE PROPHYLAXIS AT ADMISSION 1 02/18/2022 documented in this encounter Care Teams Nurse Navigator Relationship Specialty Start Date End Date Pepper Morgan MD PCP - General 09/16/16 Hank Garibay MD [address] [facility] [address] [place] [address] Surgeon Orthopedic Surgery 03/27/17 Jacky Murry MD [address] [facility] [address] [place] [address] Ophthalmology 03/27/17 Puma Mckenzie MD [address] [facility] [address] [place] [address] Surgeon Orthopedic Surgery 07/11/19 Neha Jackson PT Physical Therapist Physical Therapy 12/01/21 documented as of this encounter
--- OUTSIDE RECORDS SUMMARY | 2024-06-18 18:56 | XMS_ITS | Encounter Summary ---
Author Organization [facility] Address [address] [place] [address] Care Team Providers Care Film Crew Member Name Role Phone Pepper Morgan MD Primary Care Provider + [phone] Hank Garibay MD Unavailable [phone] Jacky Murry MD Unavailable [phone] Puma Mckenzie MD Unavailable [phone] Neha Jackson PT Unavailable Unavailable Reason for Visit * Reason Comments PT Treatment Encounter Details Date Type Department Care Team (Late st Contact Info) Description 12/13/2021 3:15 PM CDT Therapy [facility] [place] [address] [place] [address] Neha Jackson, PT Lumbar radiculopathy (Primary Dx) [...] on file 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 She reports that she has pain at night. Pain: 0/10 low back Objective: See treatment provided Treatment Provided: Gentle stretching IASTM to low back and SIJ--with massage gun Hip add with ball Hip abd with blue theraband SLR PPT with marching Recumbent bike x 5 min HEP: LTR Lumbar flexion stretch (sitting) PPT Bridging Added: SLR to HEP Assessment: Tess appears to be having subjective improvements. Plan: Continue PT POC. Start Time: 1515 End Time: 1558 Neha Jackson PT, DPT documented in this [...] unspecified documented in this encounter Care Teams Film Crew Member Relationship Specialty Start Date End Date Pepper Morgan MD PCP - General 09/16/16 Hank Garibay MD [address] [facility] [address] [place] [address] Surgeon Orthopedic Surgery 03/27/17 Jacky Murry MD [address] [facility] [address] [place] [address] Ophthalmology 03/27/17 Puma Mckenzie MD [address] [facility] [address] [place] [address] Surgeon Orthopedic Surgery 07/11/19 Neha Jackson PT Physical Therapist Physical Therapy 12/01/21 documented as of this encounter
--- OUTSIDE RECORDS SUMMARY | 2024-06-18 18:56 | XMS_ITS | Encounter Summary ---
Author Organization [facility] Address [address] [facility] [address] [place] [address] Care Team Providers Care Courier Delivery Driver Name Role Phone Pepper Morgan MD Primary Care Provider [phone] Hank Garibay MD Unavailable [phone] Jacky Murry MD Unavailable [phone] Puma Mckenzie MD Unavailable [phone] Reason for Visit * Reason Comments Follow-up Encounter Details Date Type Department Care Team (Latest Contact Info) Description 11/19/2021 2:30 PM CDT Office Visit [facility] [address] [place] [phone] Jacqueline Fuller, CONSUMER PRODUCT ADVISOR [address] [place] [address] Left leg swelling (Primary Dx) Social History Tobacco Use Types [...] file 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 Gender Identity Not on file Sexual Orientation Not on file Occupation Industry Job Start Date Job End Date retired Not on file Not on file Not on file documented as of this encounter Last Filed Vital Signs Vital Sign Reading Time Taken Comments Blood Pressure 114/60 11/19/2021 2:27 PM CDT Pulse 92 11/19/2021 2:27 PM CDT Temperature 36.2 ??C (97.1 ??F) 11/19/2021 2:27 PM CD T Respiratory Rate 18 11/19/2021 2:27 PM CDT Oxygen Saturation 98% 11/19/2021 2:27 PM CDT Inhaled Oxygen Concentration - - Weight 88.3 kg (194 lb 9.6 oz) 11/19/2021 2:27 P M CDT Height - - Body Mass Index 38.01 11/11/2021 1:40 PM CDT documented in this encounter Patient Instructions * Patient Instructions* Jacqueline Fuller CONSUMER PRODUCT ADVISOR - 11/19/2021 2:47 PM CDT Orders for AMS STAFF to arrange Please arrange follow up in 2 weeks with myself or Dr. Morgan Please do BMP prior to that visit Orders for Tess Benedict to arrange Please continue with metolazone as prescribed Call after you finish up the metolazone and let us know how the swelling is Let us know your weight when you call Please keep the leg elevated when at rest Try to wear compression if possible Call if increasing pain, sores, change in color Call with any other issues or concerns Return in about 2 weeks (around 12/03/2021) for Recheck. No orders of the defined types were placed in this encounter. A brief review of all your problems, medications, and orders from today No diagnosis found. PLEASE BRING IN ALL PILL BOTTLES TO EVERY OFFICE VISIT, THIS IS ESSENTIAL FOR ACCURATE REFILLS AND MAINTAINING AN ACCURATE MEDICATION LIST. documented in this encounter Progress Notes * Jacqueline Fuller NP - 11/19/2021 2:30 PM CDT Subjective/Objective Patient ID: Tess Benedict is a 85 y.o. female. Chief Complaint Follow-up HPI She has been having swelling in the LLE with some improvement from last visit. She cannot use compression as she feels it cuts the circulation off. She is elevating the leg as tolerated and she is using ice as well. Review of Systems Constitutional: Negative for chills and fever. Respiratory: Negative for chest tightness and shortness of breath. Cardiovascular: Negative for chest pain and palpitations. Gastrointestinal: Negative for constipation, diarrhea, nausea and vomiting. Genitourinary: Negative for difficulty urinating. Neurological: Negative for dizziness and light-headedness. Physical Exam Vitals and nursing note reviewed. Constitutional: Appearance: Normal appearance. HENT: Head: Normocephalic and atraumatic. Cardiovascular: Rate and Rhythm: Normal rate and regular rhythm. Heart sounds: Normal heart sounds. Pulmonary: Effort: Pulmonary effort is normal. Breath sounds: Normal breath sounds. Abdominal: General: Bowel sounds are normal. Palpations: Abdomen is soft. Musculoskeletal: Right lower le+ Edema present. Left lower le+ Edema present. Neurological: Mental Status: She is alert and oriented to person, place, and time. Gait: Gait abnormal (uses walker for ambulation). Psychiatric: Mood and Affect: Mood normal. Behavior: Behavior normal. Assessment/Plan Diagnoses and all orders for this visit: Left leg swelling (M79.89) (Primary) Assessment & Plan: Patient returns for follow up on LLE [...] call with an update in one week. Orders: - Basic metabolic panel; Future Cosigned by Tristin Morgan MD at 11/21/2021 3:19 PM CDT documented in this encounter Miscellaneous Notes * Assessment & Plan Note - Jacqueline Fuller NP - 11/19/2021 2:53 PM CDT Associated Problem(s): Left leg swelling (Resolved 01/24/2022) Patient returns for follow up on LLE [...] call with an update in one week. documented in this encounter Plan of Treatment Not on file documented as of this encounter Procedures Procedure Name Priority Date/Time Associated Diagnosis Comments BASIC METABOLIC PANEL Routine 12/01/2021 10:17 AM CDT Left leg swelling documented in this encounter Results * (ABNORMAL) Basic metabolic panel (12/01/2021 10:17 AM CDT) Glucose 83 65 - 139 mg/dL [facility] Comment: ? Non-fasting reference interval BUN 19 7 - 25 mg/dL [facility] Creatinine 0.72 0.60 - 0.88 mg/dL [facility] Comment: For patients >49 years of age, the reference limit for Creatinine is approximately 13% higher for people identified as -Romanian. eGFR NON-AFR. ECUADOREAN 77 > OR = 60 mL/min/1 .73m2 [facility] EGFR 89 > OR = 60 mL/min/1 .73m2 [facility] BUN/creat ratio NOT APPLICABLE 6 - 22 (calc) [facility] Sodium 133(L) 135 - 146 mmol/L [facility] Potassium, pl 4.1 3.5 - 5.3 mmol/L [facility] Chloride 94(L) 98 - 110 mmol/L [facility] CO2 33(H) 20 - 32 mmol/L [facility] Calcium 9.1 8.6 - 10.4 mg/dL [facility] Blood specimen (specimen) 12/01/2021 10:17 AM CDT 12/01/2021 10:19 AM CDT Narrative [facility] - 12/02/2021 6:47 AM CDT FASTING:NO FASTING: NO Jacqueline Fuller CONSUMER PRODUCT ADVISOR LAB BLOOD ORDERABL ES Final Result [facility] [address] [place] [address] documented in this encounter Visit Diagnoses Diagnosis Left leg swelling- Primary documented in this encounter Discontinued Medications Medication Sig Discontinue Reason Start Date End Da te HYDROcodone-acetaminop hen (NORCO) 7.5-325 mg per tabletIndications:Pain [The details of the medication are not available because there are pending changes by a home health clinician.] 11/11/2021 11/19/2021 documented as of this encounter Care Teams Courier Delivery Driver Relationship Specialty Start Date End Date Pepper Morgan MD PCP - General 09/16/16 Hank Garibay MD [address] [facility] [address] [place] [address] Surgeon Orthopedic Surgery 03/27/17 Jacky Murry MD [address] [facility] [address] [place] [address] Ophthalmology 03/27/17 Puma Mckenzie MD [address] [facility] [address] [place] [address] Surgeon Orthopedic Surgery 07/11/19 documented as of this encounter
--- OUTSIDE RECORDS SUMMARY | 2024-06-18 18:56 | XMS_ITS | Encounter Summary ---
Author Organization [facility] Address [address] [place] [address] Care Team Providers Care Paragliding Instructor Name Role Phone Pepper Morgan MD Primary Care Provider + [phone] Hank Garibay MD Unavailable [phone] Jacky Murry MD Unavailable [phone] Puma Mckenzie MD Unavailable [phone] Encounter Details Date Type Department Care Team (Late st Contact Info) Description 2021 Orders Only [facility] [address] [place] [address] A, William. 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 Gender Identity Not on file Sexual Orientation Not on file Occupation Industry Job Start Date Job End Date retired Not on file Not on file Not on file documented as of this encounter Plan of Treatment Not on file documented as of this encounter Visit Diagnoses Not on filedocumented in this encounter Care Teams Paragliding Instructor Relationship Specialty Start Date End Date Pepper Morgan MD PCP - General 09/16/16 Hank Garibay MD [address] [facility] [address] [place] [address] Surgeon Orthopedic Surgery 03/27/17 Jacky Murry MD [address] [facility] [address] [place] [address] Ophthalmology 03/27/17 Puma Mckenzie MD [address] [facility] [address] [place] [address] Surgeon Orthopedic Surgery 07/11/19 documented as of this encounter
--- OUTSIDE RECORDS SUMMARY | 2024-06-18 18:57 | XMS_ITS | Encounter Summary ---
Author Organization [facility]ly [facility] Address [address] [place] [address] Care Team Providers Care Dye Feeder Name Role Phone Pepper Morgan MD Primary Care Provider + [phone] Hank Garibay MD Unavailable [phone] Jacky Murry MD Unavailable [phone] Puma Mckenzie MD Unavailable [phone] Reason for Visit * Reason Comments Post-op Problem Encounter Details Date Type Department Care Team (Late st Contact Info) Description 11/08/2021 11:59 PM CDT - 11/09/2021 2:58 PM CDT Emergency [facility] Emergency Department [address] [place] [address] Miriam Chavez MD [address] [place] [id number] Mimi Rangel MD [address] [place] [address] [place] [address] Left leg swelling (Primary Dx); Atherosclerosis of aorta (CMS/HCC) (HCC); Superficial femoral artery occlusion (CMS/HCC) (HCC) Discharge Disposition: Discharge to home [...] points, staff should administer the PHQ-9) 1 05/31/2021 Comments No Sex and Gender Information Value Date Recorded Sex Assigned at Not on file 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 Gender Identity Not on file Sexual Orientation Not on file Occupation Industry Job Start Date Job End Date retired Not on file Not on file Not on file documented as of this encounter Last Filed Vital Signs Vital Sign Reading Time Taken Comments Blood Pressure 118/89 11/09/2021 2:45 PM CDT Pulse 85 11/09/2021 2:45 PM CDT Temperature 36.6 ??C (97.8 ??F) 11/09/2021 2:45 PM CD T Respiratory Rate 16 11/09/2021 2:45 PM CDT Oxygen Saturation 95% 11/09/2021 2:45 PM CDT Inhaled Oxygen Concentration - - Weight 81.6 kg (179 lb 14.3 oz) 11/08/2021 6:50 PM CDT Height 152.4 cm (5') 11/08/2021 6:50 PM CDT Body Mass Index 35.13 11/08/2021 6:50 PM CDT documented in this encounter Discharge Diagnoses Diagnosis Other specified soft tissue disorders - OTHER SPECIFIED SOFT TISSUE DISORDERS Stricture of artery (CMS/HCC) (HCC) - STRICTURE OF ARTERY Stricture of artery Atherosclerosis of aorta (HCC) - ATHEROSCLEROSIS OF AORTA Atherosclerosis of aorta Hypertensive heart disease with heart failure (CMS/HCC) (HCC) - HYPERTENSIVE HEART DISEASE WITH HEART FAILURE Unspecified hypertensive heart disease with heart failure Heart failure, unspecified (CMS/HCC) (HCC) - HEART FAILURE, UNSPECIFIED Heart failure, unspecified Unspecified atrial fibrillation (HCC) - UNSPECIFIED ATRIAL FIBRILLATION Gastro-esophageal reflux disease without esophagitis - GASTRO-ESOPHAGEAL REFLUX DISEASE WITHOUT ESOPHAGITIS Restless legs syndrome - RESTLESS LEGS SYNDROME Restless legs syndrome (RLS) Presence of artificial hip joint, bilateral - PRESENCE OF ARTIFICIAL HIP JOINT, BILATERAL Bariatric surgery status - BARIATRIC SURGERY STATUS Personal history of other venous thrombosis and embolism - PERSONAL HISTORY OF OTHER VENOUS THROMBOSIS AND EMBOLISM Personal history of malignant melanoma of skin - PERSONAL HISTORY OF MALIGNANT MELANOMA OF SKIN [facility] (current) use of anticoagulants - LONGTERM (CURRENT) USE OF ANTICOAGULANTS Long-term (current) use of anticoagulants documented in this encounter Discharge Instructions * Discharge Instructions* Mimi Rangel MD - 11/09/2021 2:23 PM CDT Elevate your legs. Follow-up with your doctor in 2-3 days. Follow-up with orthopedics and let them know what is going on. Follow-up with vascular surgery for ongoing outpatient care. As requested I have included both vascular surgeons from [facility] and [facility]. I am including a copy of the CTA report for you. Return to the ER with worsening symptoms or with concerns. documented in this encounter Medications at Time of Discharge cholecalciferol (VITAMIN D-3) 2000 unit tablet Take 1 tablet (2,000 Units total) by mouth daily albuterol HFA (Proventil HFA) 90 mcg/actuation inhalerIndications:C ough Inhale 2 puffs every 6 (six) hours as needed for wheezing or shortness of breath 6.7 g 10/14/2021 2 apixaban (ELIQUIS) 5 mg tabletIndications:At rial fibrillation, unspecified type (HCC) Take 1 tablet (5 mg total) by mouth 2 (two) times a day 60 tablet 11 05/31/2021 2 ascorbic acid (VITAMIN C) 500 mg tablet,chewable Take 500 mg by mouth daily 2 cetirizine (ZyrTEC) 10 mg tabletIndications:An gioedema, subsequent encounter Take 1 tablet (10 mg total) by mouth nightly 90 tablet 3 09/17/2021 3 felodipine (PLENDIL) 5 mg 24 hr tabletIndications:Be nign hypertension Take 1 tablet (5 mg total) by mouth daily 90 tablet 1 09/17/2021 2 ferrous sulfate 325 mg (65 mg of elemental iron) tabletIndications:Ir on Deficiency Anemia,Anemia prevention Take 1 tablet (325 mg total) by mouth daily with breakfast 30 tablet 11/03/2021 2 furosemide (LASIX) 40 mg tabletIndications:Be nign hypertension Take 1 tablet (40 mg total) by mouth daily 90 tablet 1 08/23/2021 2 HYDROcodone-acetamin ophen (NORCO) 5-325 mg per tabletIndications:Pa in Take 1-2 tablets by mouth every 4 (four) hours as needed for pain 60 tablet 11/02/2021 2 HYDROcodone-acetamin ophen (NORCO) 5-325 mg per tabletIndications:Pa in Take 1 tablet by mouth every 6 (six) hours as needed for pain for up to 15 days 15 tablet 11/09/2021 2 ondansetron ODT (ZOFRAN-ODT) 4 mg disintegrating tabletIndications:na usea and vomiting Take 1 tablet (4 mg total) by mouth every 6 (six) hours as needed for nausea or vomiting 20 tablet 2 11/02/[address] (PROTONIX) 20 mg EC tabletIndications:Ch ronic GERD Take 1 tablet (20 mg total) by mouth daily With the largest meal 90 tablet 1 08/23/2021 2 polyethylene glycol (MIRALAX) 17 gram packetIndications:co nstipation Take 1 packet (17 g total) by mouth daily 05/26/2020 2 pramipexole (MIRAPEX) 0.125 mg tabletIndications:Id iopathic Parkinsonism,Restles s Legs Syndrome Take 1 tablet (0.125 mg total) by mouth 3 (three) times a day Take at 9:00 a.m., 3:00 p.m., 9:00 p.m. 270 tablet 1 08/23/2021 2 propranoloL (INDERAL) 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:He reditary essential tremor Take 1 tablet (20 mg total) by mouth 2 (two) times a day as needed (Tremor) 180 tablet 1 08/23/2021 2 senna-docusate (Senna-S) 8.6-50 mgIndications:Consti pation due to opioid therapy Take 1 tablet by mouth daily 90 tablet 1 04/21/2021 2 spironolactone (Aldactone) 25 mg tabletIndications:Be nign hypertension Take 0.5 tablets (12.5 mg total) by mouth daily Take 1/2 tablet daily 50 tablet 1 08/23/2021 2 documented as of this encounter Ordered Prescriptions Prescription Sig Dispense Quantity Refills Last Filled Start Date End Date HYDROcodone-acetam inophen (NORCO) 5-325 mg per tabletIndications: Pain Take 1 tablet by mouth every 6 (six) hours as needed for pain for up to 15 days 15 tablet 11/09/2021 11/11/2021 documented in this encounter Discharge Disposition Disposition Code Departure Means Destination Discharge to home or self care documented in this encounter ED Notes * Miriam Chavez MD - 11/09/2021 12:29 AM CDT Triage Chief Complaint: Chief Complaint Patient presents with ??? Post-op Problem Portions of the record may have been created with voice recognition software. Occasional wrong-word or '[id number]' substitutions may have occurred due to the inherent limitations of voice recognition software. Read the chart carefully and recognize, using context, where substitutions have occurred. H&P: eTss Benedict is a 85 y.o. female with h/o Atrial fibrillation and DVT on Eliquis, postop day 8after a left total hip with Dr. Mckenzie, presents for pain going down the left leg. She has been weight-bearing as tolerated taking her p.r.n. 2 hydrocodones q.4 hours, today the pain and swelling inher left leg got much worse as did bruising around the left knee, the pain radiates down the leg and feels like sciatic in nature and is worse with any movement. She called her primary care doctor's office who referred her to the emergency department for concern for DVT. No numbness or weakness, atleast no weakness out of proportion to pain. Has been waiting in the waiting room for 6 hours and missed her most recent dose of hydrocodone that she should have taken 2 hours ago. When asked about nausea vomiting diarrhea or decreased p.o. intake, she reports that just the 6 hours while waiting here in the emergency department she was told not eat or drink anything so she feels she is probably dehydrated now although prior to coming to the ED had not been experiencing symptoms of this. No fevers. No wound color changes or drainage. Has had some bilateral swelling worse on the left than the right. ROS: At least 10 systems reviewed and otherwise negative except as in the HPI. Past Medical History: Diagnosis Date ??? Allergic [...] 03/1999 ? gout ??? Malignant melanoma (CMS/HCC) ([facility]) Malignant melanoma; Comments: APO 01/13/2014 - ??? [...] The successful right hip replacement Dr. Mckenzie HOME MEDICATIONS : albuterol HFA (Proventil HFA) 90 mcg/actuation inhaler apixaban (ELIQUIS) 5 mg tablet ascorbic acid (VITAMIN C) 500 mg tablet,chewable cetirizine (ZyrTEC) 10 mg tablet cholecalciferol (VITAMIN D-3) 2000 unit tablet felodipine (PLENDIL) 5 mg 24 hr tablet ferrous sulfate 325 mg (65 mg of elemental iron) tablet furosemide (LASIX) 40 mg tablet HYDROcodone-acetaminophen (NORCO) 5-325 mg per tablet ondansetron ODT (ZOFRAN-ODT) 4 mg disintegrating tablet pantoprazole DR (PROTONIX) 20 mg EC tablet polyethylene glycol (MIRALAX) 17 gram packet pramipexole (MIRAPEX) 0.125 mg tablet propranoloL (INDERAL) 20 mg tablet senna-docusate (Senna-S) 8.6-50 mg spironolactone (Aldactone) 25 mg tablet Allergies Allergen Reactions ??? Celecoxib Anaphylaxis ??? Scopolamine Mental status changes Delirium postop after joint replacement due to this medicine ??? Sulfa (Sulfonamide Antibiotics) Anaphylaxis ??? Amlodipine Swelling ??? Lisinopril Swelling ??? Trazodone Swelling Tongue ??? Cymbalta [Duloxetine] Fatigue Sleepiness, tiredness possibly related to 20 mg morning dose of this medicine discontinued 11/30/2020 ??? Sinemet [Carbidopa-Levodopa] Other (See comments) Night hines Nursing Notes Reviewed. Physical Exam: ED Triage Vitals [11/08/21 1850] Temp Pulse Resp BP SpO2 36.4 ??C (97.6 ??F) 84 16 113/56 100 % Temp src Heart Rate Source Patient Position BP Location FiO2 (%) -- -- -- -- -- Height Height Method Weight Weight Method 1.524 m (5') -- 81.6 kg (179 lb 14.3 oz) -- GENERAL APPEARANCE: Awake and alert. No acute distress. HEAD: Normocephalic. Atraumatic. EYES: Sclera anicteric. ENT: Tolerates saliva. NECK: Supple. Trachea midline. LUNGS: Respirations unlabored. EXTREMITIES: Trace 1+ pedal edema on the right with somewhat difficult to palpate bilateral but symmetrical dorsal pedal pulses. Warm well-perfused lower extremities. Bruising on the left leg in the left lateral thigh that appears to have fallen down into the left lateral knee. One to 2+ pedal edema on the left leg. Patient reports pain with any movement of the left hip, able to wiggle toes and feel sensation to light touch distally on the medial and lateral aspect of the foot. Soft compartments. SKIN: Warm and dry. NEUROLOGICAL: No gross facial drooping. Moves all 4 extremities spontaneously. PSYCHIATRIC: Normal mood. I have reviewed and interpreted all of the currently available lab results from this visit (if applicable): Labs Reviewed CBC WITH AUTO DIFFERENTIAL - Abnormal Result Value WBC 7.9 Hgb 11.2 (*) Hct 34.7 (*) Plt 428 (*) MPV 9.2 RBC 4.01 MCV 86.5 MCH 27.9 MCHC 32.3 RDW CV 14.7 RDW SD 46.9 NRBC abs 0.00 COMPREHENSIVE METABOLIC PANEL - Abnormal Sodium 129 (*) Potassium, pl 4.4 Chloride 90 (*) CO2 32 Anion gap 8 BUN 20 Creatinine 0.84 Glucose 119 Calcium 9.0 Bilirubin, total 0.4 Protein, pl 6.6 Albumin 3.5 Alk phos 142 (*) ALT 16 AST 23 D-DIMER, QUANTITATIVE - Abnormal D-Dimer 1,417 (*) DIFFERENTIAL AUTO - Abnormal Neutrophil abs 5.3 Imm gran abs 0.2 (*) Lymphocyte abs 1.2 Monocyte abs 0.7 Eosinophil abs 0.5 Basophil abs 0.1 Neutrophil pct 67.8 Imm gran pct 2.2 Lymphocyte pct 14.9 Monocyte pct 8.5 Eosinophil pct 6.0 Basophil pct 0.6 PRO B-TYPE NATRIURETIC PEPTIDE - Abnormal NT-proBNP 2,821 (*) BASIC METABOLIC PANEL - Abnormal Sodium 129 (*) Potassium, pl 4.3 Chloride 89 (*) CO2 31 Anion gap 9 BUN 19 Creatinine 0.74 Glucose 123 Calcium 9.3 EGFR eGFR 69 CREATINE KINASE (CK), TOTAL CK 114 LACTATE Lactate 0.9 EGFR eGFR 80 Radiographs (if obtained): Report Reviewed: US VEIN DUPLEX LOWER EXTREMITY LEFT LIMITED, UNILATERAL (Results Pending) US Arterial Duplex Lower Extremity Left Limited (Results Pending) ED course/MDM: Vitals: 11/09/21 0345 11/09/21 0400 11/09/21 0415 11/09/21 0430 BP: 146/86 124/69 119/55 110/71 Pulse: 92 81 Resp: Temp: SpO2: 99% 93% Weight: Height: ED Course as of 11/09/21 1323 Time: 11/09 12 Comment: 11/01-11/02/21 Left Total Hip Arthroplasty- Anterior Approach with Dr. Mckenzie Apixaban for DVT prophylaxis By: Miriam Chavez MD Time: 11/10 35 Value: Hgb(!): 11.2 Comment: Near bili sliding from 6 days ago By: Miriam Chavez MD Time: 11/10 35 Value: Plt(!): 428 Comment: Likely reactive and probably expected postoperatively By: Miriam Chavez MD Time: 11/09 0036 Comment: I spoke to the PA for Dr. Mckenzie who agrees with ultrasound in the morning. No beds available in the hospital at this time so she will be observed in the emergency department until morning when we can obtain an ultrasound. By: Miriam Chavez MD Time: 11/09 1323 Value: US Arterial Duplex Lower Extremity Left Limited Comment: (Reviewed) By: Mimi Rangel MD MDM: Low suspicion for wound infection, very low suspicion for arterial occlusion, patient is on apixaban so unlikely DVT. I suspected postoperative pain, pain from bruising, or potentially exacerbation of underlying spinal stenosis/radiculopathy/the patient reports the pain feels like. I spoke PA for Dr. Mckenzie who says that is common postoperatively for underlying conditions to be exacerbated given the change in activity postoperatively. Will get pain under control and observe until morning for ultrasound. Patient will need to be signed out to the oncoming physician Dr. Rangel. Initial Clinical Impression: Left lower extremity postoperative pain, or sciatica - exacerbation [id number]. Disposition: Pending further ED evaluation (Please note that portions of this note may have been completed with a voice recognition program. [employer] errors occur. Please contact me for any clarification.) Miriam Chavez MD 11/09/21 0642 * Isha Romo RN - 11/08/2021 6:47 PM CDT PT INTO ER WITH REPORT OF 1 WEEK POST OP FROM LEFT TOTAL HIP PER DR MCKENZIE. PT REPORTS BRUISING TOLEFT KNEE AND SWELLING TO LEFT FOOT ONSET OF TODAY. PT REPORTS PAIN. documented in this encounter Miscellaneous Notes * ED Re-evaluation Note - Mimi Rangel MD - 11/09/2021 7:24 AM CDT ED Re-evaluation Patient accepted from Dr. Chavez. Recent hip surgery. Bruising versus sciatica versus DVT. He awaitDoppler studies. Labs reviewed. Patient resting comfortably. Patient updated. Await cta CTA results in. Discussed with patient. [place] and doubled pulses bilaterally in feet. Will discuss with vascular. Discussed with Dr. Deshpande from vascular at [facility]. He agrees with outpatient follow-up -Noble Marcos. Will consult patient and discharge. Mimi Rangel MD 11/09/21 1428 documented in this encounter Plan of Treatment Not on file documented as of this encounter Procedures Procedure Name Priority Date/Time Associated Diagnosis Comments CTA ABDOMINAL AORTA AND BILATERAL ILIOFEMORAL RUNOFF ED 11/09/2021 11:37 AM CDT US ARTERIAL DUPLEX LOWER EXTREMITY LEFT LIMITED ED 11/09/2021 9:16 AM CDT US VEIN DUPLEX LOWER EXTREMITY LEFT LIMITED ED 11/09/2021 9:15 AM CDT LACTATE STAT 11/09/2021 12:55 AM CDT EGFR Routine 11/09/2021 12:55 AM CDT PRO B-TYPE NATRIURETIC PEPTIDE STAT 11/09/2021 12:55 AM CDT CREATINE KINASE (CK), TOTAL STAT 11/09/2021 12:55 AM CDT BASIC METABOLIC PANEL Routine 11/09/2021 12:55 AM CDT EGFR STAT 11/08/2021 7:50 PM CDT DIFFERENTIAL AUTO STAT 11/08/2021 7:5 0 PM CDT CBC WITH AUTO DIFFERENTIAL STAT 11/08/2021 7:50 PM CDT D-DIMER, QUANTITATIVE STAT 11/08/2021 7:50 PM CDT COMPREHENSIVE METABOLIC PANEL STAT 11/08/2021 7:50 PM CDT documented in this encounter Results * CTA Abdominal Aorta And Bilateral Iliofemoral Runoff (11/09/2021 11:37 AM CDT) Anatomical Region Laterality Modality Body Bilateral Computed Tomogra phy 11/09/2021 11:4 6 AM CDT Narrative 11/09/2021 12:03 PM CDT EXAM DESCRIPTION: ?? CTA ABDOMINAL AORTA AND BILATERAL ILIOFEMORAL RUNOFF REASON FOR STUDY: ?? per us report rec ?? Left leg swelling since hip replacement about 1 week ago, pain, history of b/l hip and knee replacements, gastric bypass ?? Potential arterial occlusion left superficial femoral artery detected on ultrasound exam earlier same day. TECHNIQUE: CTA of the abdominal aorta with bilateral lower extremity runoff was performed ?? without and with ??intravenous contrast using helical scanning technique. ??Precontrast and arterial images were obtained of the lower extremities. ?? Images reviewed with soft tissue and bone windows. Reconstructed coronal and sagittal MPR images reviewed. All images stored on PACS. ?3D MIP images rendered on scanning unit and reviewed at time of interpretation. ?? Automated exposure control was used as a dose optimization technique for this examination. CONTRAST TYPE/DOSE: ?? 125mL of IOVERSOL 350 MG IODINE/ML INTRAVENOUS SYRINGE ?? injected via ?? intravenous COMPARISON: ?? 11/09/2021 duplex Doppler left leg arterial system. FINDINGS: VASCULATURE: NON-CONTRASTED IMAGING: ?? Extensive vascular calcifications. ??Hip and knee prosthesis bilaterally. ABDOMINAL AORTA: ?? No aneurysmal segment. ??Diffuse atherosclerotic calcified and noncalcified plaque. ??This produces approximately 50% stenosis in the infrarenal abdominal aorta. MESENTERIC/RENAL: ?? Celiac axis, superior and inferior mesenteric arteries are patent at their origins. Renal arteries demonstrate moderate atherosclerotic calcified plaque without high-grade stenosis. ??Single renal arteries. PELVIC VASCULATURE: Common/external iliac arteries: ?? The right common iliac artery is patent with diffuse less than 50% stenosis. ?? The right common iliac bifurcates with patent right internal iliac artery. ?? The right external iliac demonstrates diffuse atherosclerotic change with 50-75% stenosis due to calcified plaque distally. The left common iliac artery is patent at its origin with 50-75% stenosis distally above its bifurcation with patent left internal iliac artery. ??The left external iliac artery demonstrates calcified plaque with 50-75% proximal and distal stenosis. RIGHT LOWER EXTREMITY VASCULATURE: ?? The right common femoral artery demonstrates calcified plaque with less than 50% stenosis. ??The right common femoral artery bifurcates with patent profunda femoral artery. ??The right superficial femoral artery is occluded from its origin with reconstituted trickle flow at the adductor canal. ??The popliteal arteries obscured by knee prosthesis though patent distally. ??The right popliteal trifurcations with 3 patent distal runoff vessels to the ankle. LEFT LOWER EXTREMITY VASCULATURE: ?? The left common femoral artery demonstrates calcified plaque with less than 50% stenosis. ??The left profunda femoral artery is patent. ??The left superficial femoral artery is occluded at its origin. ??Collateralized flow identified in the inferior Dr. Canal above the patella. ??Popliteal is obscured by metallic artifact from knee prosthesis. The distal popliteal is patent and trifurcations with 3 vessels reaching the ankle in normal fashion. ABDOMEN/PELVIS: LOWER CHEST: ?? No significant pulmonary abnormalities. No effusion. LIVER: ?? Normal size. ??No identified cystic or solid masses. No cysts. GALLBLADDER: ?? Not visualized. BILE DUCTS: ?? No intrahepatic or extrahepatic ductal dilatation. SPLEEN: ?? Normal size. ??No focal lesions. PANCREAS: ?? No identified cystic or solid masses. No significant calcifications. No adjacent inflammation or peripancreatic fluid collections. Pancreatic duct not dilated. ?? ADRENALS: ?? Nonspecific mild adrenal thickening. KIDNEYS/URINARY TRACT: ?? No identified cystic or solid masses. No cysts. No stones. No hydronephrosis or hydroureter. Symmetric enhancement. ?Urinary bladder somewhat obscured by metallic artifact from the hips. GI: ?? No dilated bowel loops. No obvious wall thickening. Appendix is not visualized. No significant diverticular disease. PERITONEUM: ?? No ascites or free air. RETROPERITONEUM: ?? No mass or adenopathy. REPRODUCTIVE: ?? No significant abnormality. MUSCULOSKELETAL: ?? No acute findings. OTHER: ?? No other abnormality. IMPRESSION: ??Abdominal aorta demonstrates approximately 50% stenosis due to calcified plaque in the infrarenal segment. The right iliac system demonstrates regions of 50-75% stenosis limiting inflow to the right lower extremity. ??The right leg demonstrates complete occlusion of superficial femoral artery with reconstitution of the above knee popliteal at the bottom of the adductor canal. ??The popliteal is obscured by metallic artifact. ??3 distal runoff vessels are patent. The left iliac system demonstrates 50-75% stenosis at multiple sites limiting inflow to the left lower extremity. ??The left leg demonstrates complete occlusion of the superficial femoral artery from its origin with reconstitution of the above knee popliteal. ??The popliteal is obscured by metallic artifact. ??3 patent distal runoff vessels are noted. THIS IS AN ELECTRONICALLY VERIFIED FINAL REPORT 11/09/2021 12:03 PM - Electronically signed by ??Saud Penny M.D. RB: AYLIN D: ??11/09/2021 12:03 PM T: ??11/09/2021 12:03 PM Report ID: [id number] Reading Location: ??[id number] Procedure Note Saud Penny MD - 11/09/2021 EXAM DESCRIPTION: CTA ABDOMINAL AORTA AND BILATERAL ILIOFEMORAL RUNOFF REASON FOR STUDY: per us report rec Left leg swelling since hip replacement about 1 week ago, pain, history ofb/l hip and knee replacements, gastric bypass Potential arterial occlusion left superficial femoral artery detected on ultrasound exam earlier same day. TECHNIQUE: CTA of the abdominal aorta with bilateral lower extremityrunoff was performed without and with intravenous contrast using helicalscanning technique. Precontrast and arterial images were obtained of the lower extremities. Images reviewed with soft tissue and bone windows. Reconstructed coronal and sagittal MPR images reviewed. All images storedon PACS. 3D MIP images rendered on scanning unit and reviewed at time of interpretation. Automated exposure control was used as a doseoptimization technique for this examination. CONTRAST TYPE/DOSE: 125mL of IOVERSOL 350 MG IODINE/ML INTRAVENOUSSYRINGE injected via intravenous COMPARISON: 11/09/2021 duplex Doppler left leg arterial system. FINDINGS: VASCULATURE: NON-CONTRASTED IMAGING: Extensive vascular calcifications. Hip and knee prosthesis bilaterally. ABDOMINAL AORTA: No aneurysmal segment. Diffuse atheroscleroticcalcified and noncalcified plaque. This produces approximately 50% stenosis in the infrarenal abdominal aorta. MESENTERIC/RENAL: Celiac axis, superior and inferior mesenteric arteriesare patent at their origins. Renal arteries demonstrate moderate atherosclerotic calcified plaquewithout high-grade stenosis. Single renal arteries. PELVIC VASCULATURE: Common/external iliac arteries: The right common iliac artery is patent with diffuse less than 50%stenosis. The right common iliac bifurcates with patent right internal iliac artery. The right external iliac demonstrates diffuse atherosclerotic change with 50-75% stenosis due to calcified plaque distally. The left common iliac artery is patent at its origin with 50-75% stenosis distally above its bifurcation with patent left internal iliac artery.The left external iliac artery demonstrates calcified plaque with 50-75%proximal and distal stenosis. RIGHT LOWER EXTREMITY VASCULATURE: The right common femoral artery demonstrates calcified plaque with less than 50% stenosis. The rightcommon femoral artery bifurcates with patent profunda femoral artery. The right superficial femoral artery is occluded from its origin with reconstituted trickle flow at the adductor canal. The popliteal arteries obscured byknee prosthesis though patent distally. The right popliteal trifurcations with3 patent distal runoff vessels to the ankle. LEFT LOWER EXTREMITY VASCULATURE: The left common femoral artery demonstrates calcified plaque with less than 50% stenosis. The leftprofunda femoral artery is patent. The left superficial femoral artery is occludedat its origin. Collateralized flow identified in the inferior Dr. Canalabove the patella. 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 The distal popliteal is patent and trifurcations with 3 vessels reachingthe ankle in normal fashion. ABDOMEN/PELVIS: LOWER CHEST: No significant pulmonary abnormalities. No effusion. LIVER: Normal size. No identified cystic or solid masses. No cysts. GALLBLADDER: Not visualized. BILE DUCTS: No intrahepatic or extrahepatic ductal dilatation. SPLEEN: Normal size. No focal lesions. PANCREAS: No identified cystic or solid masses. No significant calcifications. No adjacent inflammation or peripancreatic fluidcollections. Pancreatic duct not dilated. ADRENALS: Nonspecific mild adrenal thickening. KIDNEYS/URINARY TRACT: No identified cystic or solid masses. No cysts.No stones. No hydronephrosis or hydroureter. Symmetric enhancement.Urinary bladder somewhat obscured by metallic artifact from the hips. GI: No dilated bowel loops. No obvious wall thickening. Appendix is not visualized. No significant diverticular disease. PERITONEUM: No ascites or free air. RETROPERITONEUM: No mass or adenopathy. REPRODUCTIVE: No significant abnormality. MUSCULOSKELETAL: No acute findings. OTHER: No other abnormality. IMPRESSION: Abdominal aorta demonstrates approximately 50% stenosis due to calcified plaque in the infrarenal segment. The right iliac system demonstrates regions of 50-75% stenosis limitinginflow to the right lower extremity. The right leg demonstrates completeocclusion of superficial femoral artery with reconstitution of the above kneepopliteal at the bottom of the adductor canal. The popliteal is obscured bymetallic artifact. 3 distal runoff vessels are patent. The left iliac system demonstrates 50-75% stenosis at multiple siteslimiting inflow to the left lower extremity. The left leg demonstrates complete occlusion of the superficial femoral artery from its origin with reconstitution of the above knee popliteal. The popliteal is obscured by metallic artifact. 3 patent distal runoff vessels are noted. THIS IS AN ELECTRONICALLY VERIFIED FINAL REPORT 11/09/2021 12:03 PM - Electronically signed by Saud Penny M.D. RB: AYLIN Report ID: [id number] Reading Location: [place] [id number] us Mimi Rangel MD IMG CT PROCEDURES Final R esult * US Arterial Duplex Lower Extremity Left Limited (11/09/2021 9:16 AM CDT) Anatomical Region Laterality Modality Vascular Left Ultrasound 11/09/2021 9:53 AM CDT Narrative 11/09/2021 10:09 AM CDT EXAM DESCRIPTION: ?? US ARTERIAL DUPLEX LOWER EXTREMITY LEFT LIMITED REASON FOR STUDY: ?? Pain ?? TECHNIQUE: Grayscale and color images acquired of the lower extremity arteries. Additional selected spectral images recorded. ?? COMPARISON: ?? No prior. FINDINGS: Velocities are in cm/sec LEFT LEG: Left proximal common femoral artery: Peak systolic flow 235.8 End-diastolic flow 63 Left distal femoral artery: Peak systolic flow 53.4 End-diastolic flow 11.7 Proximal SFA: Peak systolic flow 93 End-diastolic flow 9 Mid SFA: Peak systolic flow 112.4 End-diastolic flow 38.1 Distal SFA: Peak systolic flow 11.8 End-diastolic flow 3.9 Proximal popliteal artery: Peak systolic flow 87.5 End-diastolic flow 13.8 Distal popliteal artery: Peak systolic flow 41.7 End-diastolic flow 9.8 Proximal posterior tibial artery: Peak systolic flow 47.4 End-diastolic flow 11.8 Mid posterior tibial artery: Peak systolic flow 40.9 End-diastolic flow 6.4 More limited flow is seen of the left mid to distal superficial femoral artery. ??Abnormal waveforms with areas of non pulsatile flow. IMPRESSION: ??Abnormal flow of the mid to distal left superficial femoral artery equivocal for area of occlusion with areas where pulsatile flow is not seen. CTA runoff is recommended. THIS IS AN ELECTRONICALLY VERIFIED FINAL REPORT 11/09/2021 10:09 AM - Electronically signed by ??Klaus Burton M.D. MJ: WENDY D: ??11/09/2021 10:09 AM T: ??11/09/2021 10:09 AM Report ID: [id number] Reading Location: ??[id number] Procedure Note Klaus Burton MD - 11/09/2021 EXAM DESCRIPTION: US ARTERIAL DUPLEX LOWER EXTREMITY LEFT LIMITED REASON FOR STUDY: Pain TECHNIQUE: Grayscale and color images acquired of the lower extremity arteries. Additional selected spectral images recorded. COMPARISON: No prior. FINDINGS: Velocities are in cm/sec LEFT LEG: Left proximal common femoral artery: Peak systolic flow 235.8 End-diastolic flow 63 Left distal femoral artery: Peak systolic flow 53.4 End-diastolic flow 11.7 Proximal SFA: Peak systolic flow 93 End-diastolic flow 9 Mid SFA: Peak systolic flow 112.4 End-diastolic flow 38.1 Distal SFA: Peak systolic flow 11.8 End-diastolic flow 3.9 Proximal popliteal artery: Peak systolic flow 87.5 End-diastolic flow 13.8 Distal popliteal artery: Peak systolic flow 41.7 End-diastolic flow 9.8 Proximal posterior tibial artery: Peak systolic flow 47.4 End-diastolic flow 11.8 Mid posterior tibial artery: Peak systolic flow 40.9 End-diastolic flow 6.4 More limited flow is seen of the left mid to distal superficial femoral artery. Abnormal waveforms with areas of non pulsatile flow. IMPRESSION: Abnormal flow of the mid to distal left superficial femoral arteryequivocal for area of occlusion with areas where pulsatile flow is not seen. CTArunoff is recommended. THIS IS AN ELECTRONICALLY VERIFIED FINAL REPORT 11/09/2021 10:09 AM - Electronically signed by Klaus NGUYEN Report ID: [id number] Reading Location: [id number] us Miriam Chavez MD IMG US PROCEDURES Final Result * US VEIN DUPLEX LOWER EXTREMITY LEFT LIMITED, UNILATERAL (11/09/2021 9:15 AM CDT) Anatomical Region Laterality Modality Vascular Left Ultrasound 11/09/2021 9:22 AM CDT Narrative 11/09/2021 9:26 AM CDT EXAM DESCRIPTION: ?? US VEIN DUPLEX LOWER EXTREMITY LEFT LIMITED, UNILATERAL REASON FOR STUDY: Left lower extremity pain after left hip replacement. TECHNIQUE: Duplex scan using the B-mode, spectral Doppler, and color-flow Doppler of the deep venous system of the left lower extremity was performed. Images stored on PACS. COMPARISON: ?? Older older exam 07/25/2019. FINDINGS: Large body habitus results in a somewhat limited exam. ??However, the common femoral, common femoral-saphenous vein confluence, visualized profunda femoral, superficial femoral, and popliteal veins are readily compressible with no intraluminal thrombus on crane scale images. ??There is normal color and spectral Doppler signal. ??Greater saphenous vein appears patent. Visualized calf veins are patent. IMPRESSION: ??No evidence of a DVT of the left lower extremity. THIS IS AN ELECTRONICALLY VERIFIED FINAL REPORT 11/09/2021 9:26 AM - Electronically signed by ??Klaus NGUYEN: WENDY D: ??11/09/2021 9:26 AM T: ??11/09/2021 9:26 AM Report ID: [id number] Reading Location: ??[id number] Procedure Note Klaus Burton MD - 11/09/2021 EXAM DESCRIPTION: US VEIN DUPLEX LOWER EXTREMITY LEFT LIMITED,UNILATERAL REASON FOR STUDY: Left lower extremity pain after left hip replacement. TECHNIQUE: Duplex scan using the B-mode, spectral Doppler, and color-flow Doppler of the deep venous system of the left lower extremity wasperformed. Images stored on PACS. COMPARISON: Older older exam 07/25/2019. FINDINGS: Large body habitus results in a somewhat limited exam. However, thecommon femoral, common femoral-saphenous vein confluence, visualized profunda femoral, superficial femoral, and popliteal veins are readily compressible with no intraluminal thrombus on crane scale images. There is normal colorand spectral Doppler signal. Greater saphenous vein appears patent.Visualized calf veins are patent. IMPRESSION: No evidence of a DVT of the left lower extremity. THIS IS AN ELECTRONICALLY VERIFIED FINAL REPORT 11/09/2021 9:26 AM - Electronically signed by Klaus Burton M.D. MJ: WENDY Report ID: [id number] Reading Location: [id number] us Miriam Chavez MD IMG US PROCEDURES Final Result * eGFR (11/09/2021 12:55 AM CDT) eGFR 80 mL/min/1. 73 m2 [facility] ([place]) Comment: [...] interpretive data was last reviewed 2021. Blood 11/09/2021 12:5 5 AM CDT 11/09/2021 12:59 AM CDT us Miriam Chavez MD LAB BLOOD ORDERABLES Fin al Result [facility] ([place]) 1 [facility] [place] [address] * (ABNORMAL) Basic metabolic panel (11/09/2021 12:55 AM CDT) Sodium 129(L) 135 - 145 mmol/L [facility] ([place]) Potassium, pl 4.3 3.3 - 4.9 mmol/L [facility] ([place]) Chloride 89(L) 97 - 110 mmol/L [facility] ([place]) CO2 31 22 - 32 mmol/L [facility] ([place]) Anion gap 9 2 - 15 mmol/L [facility] ([place]) BUN 19 8 - 25 mg/dL [facility] ([place]) Creatinine 0.74 0.60 - 1.10 mg/dL [facility] ([place]) Glucose 123 70 - 199 mg/dL [facility] ([place]) Comment: Interpretive Data Fasting glucose >/= [...] - 10.3 mg/dL [facility] ([place]) Blood 11/09/2021 12:5 5 AM CDT 11/09/2021 12:59 AM CDT us Miriam Chavez MD LAB BLOOD ORDERABLES Fin al Result [facility] ([place]) 1 [facility] Department [place] [address] * (ABNORMAL) Pro B-type natriuretic peptide (11/09/2021 12:55 AM CDT) NT-proBNP 2,821(H) <=450 pg/mL [facility] ([place]) Comment: Interpretive [...] Interpretive Data Last Revised Date: 2018. Blood 11/09/2021 12:5 5 AM CDT 11/09/2021 12:59 AM CDT Miriam Chavez MD LAB BLOOD ORDERABLES Ari azar Result - Final [facility] ([place]) 1 [facility] [employer] [place] [address] * Lactate (11/09/2021 12:55 AM CDT) Lactate 0.9 0.7 - 2.0 mmol/L [facility] ([place]) Blood 11/09/2021 12:5 5 AM CDT 11/09/2021 1:00 AM CDT Miriam Chavez MD LAB BLOOD ORDERABLES Fin al Result [facility] ([place]) 1 [facility] [place] [employer] [place] [address] * Creatine kinase (CK), total (11/09/2021 12:55 AM CDT) CK 114 30 - 200 Units/L [facility] ([place]) Blood 11/09/2021 12:5 5 AM CDT 11/09/2021 12:59 AM CDT us Miriam Chavez MD LAB BLOOD ORDERABLES Fin al Result Performing Organization Address City/State/[facility] Co de Phone Number [facility] ([place]) 1 [facility] [place] [address] * eGFR (11/08/2021 7:50 PM CDT) eGFR 69 mL/min/1. 73 m2 [facility] ([place]) Comment: Interpretive Data Reference Interval Normal ?>/= [...] interpretive data was last reviewed 2021. Blood 11/08/2021 7:50 PM CDT 11/08/2021 8:10 PM CDT Miriam Chavez MD LAB BLOOD ORDERABLES Fin al Result [facility] ([place]) 1 [facility] [place] [address] * (ABNORMAL) Differential, auto (11/08/2021 7:50 PM CDT) Neutrophil abs 5.3 1.7 - 6.5 K/cumm [facility] ([place]) Imm gran abs 0.2(H) 0.0 - 0.1 K/cumm [facility] ([place]) Lymphocyte abs 1.2 0.8 - 3.3 K/cumm [facility] ([place]) Monocyte abs 0.7 0.2 - 0.8 K/cumm [facility] ([place]) Eosinophil abs 0.5 0.0 - 0.5 K/cumm [facility] ([place]) Basophil abs 0.1 0.0 - 0.1 K/cumm [facility] ([place]) Neutrophil pct 67.8 % [facility] ([place]) Comment: Interpretive Data Percent cell count reference ranges are not reported, since discordance with absolute values may lead to misinterpretation of CBC data. Current Interpretive Data was last revised on 2017. Imm gran pct 2.2 % [facility] ([place]) Comment: Interpretive Data Percent cell count reference ranges are not reported, since discordance with absolute values may lead to misinterpretation of CBC data. Current Interpretive Data was last revised on 2017. Lymphocyte pct 14.9 % [facility] ([place]) Comment: Interpretive Data Percent cell count reference ranges are not reported, since discordance with absolute values may lead to misinterpretation of CBC data. Current Interpretive Data was last revised on 2017. Monocyte pct 8.5 % [facility] ([place]) Comment: Interpretive Data Percent cell count reference ranges are not reported, since discordance with absolute values may lead to misinterpretation of CBC data. Current Interpretive Data was last revised on 2017. Eosinophil pct 6.0 % [facility] ([place]) Comment: Interpretive Data Percent cell count reference ranges are not reported, since discordance with absolute values may lead to misinterpretation of CBC data. Current Interpretive Data was last revised on 2017. Basophil pct 0.6 % [facility] ([place]) Comment: Interpretive Data Percent cell count reference ranges are not reported, since discordance with absolute values may lead to misinterpretation of CBC data. Current Interpretive Data was last revised on 2017. Blood 11/08/2021 7:50 PM CDT 11/08/2021 8:10 PM CDT Miriam Chavez MD LAB BLOOD ORDERABLES Fin al Result Performing Organization Address City/[facility]/ZIP Co de Phone Number [facility] ([place]) 1 [facility] [place] [address] * (ABNORMAL) D-dimer, quantitative (11/08/2021 7:50 PM CDT) D-Dimer 1,417(H) <=499 ng/mL FEU [facility] ([place]) Comment: Interpretive data FDA approved the D-dimer, [...] 68, VTE cut-off 680 ng/ml FEU. References; Schoutkamila HT et al. Brit Med J. 2013;346:f2492. Alden et al. Annals Int Med. 2015;163:701-11. Current interpretive data was last revised on 2019. Blood 11/08/2021 7:50 PM CDT 11/08/2021 8:10 PM CDT Miriam Chavez MD LAB BLOOD ORDERABLES Fin al Result [facility] ([place]) 1 [facility] [place] [place] [address] * (ABNORMAL) Comprehensive metabolic panel (11/08/2021 7:50 PM CDT) Sodium 129(L) 135 - 145 mmol/L [facility] ([place]) Potassium, pl 4.4 3.3 - 4.9 mmol/L [facility] ([place]) Chloride 90(L) 97 - 110 mmol/L [facility] ([place]) CO2 32 22 - 32 mmol/L [facility] ([place]) Anion gap 8 2 - 15 mmol/L [facility] ([place]) BUN 20 8 - 25 mg/dL [facility] ([place]) Creatinine 0.84 0.60 - 1.10 mg/dL [facility] ([place]) Glucose 119 70 - 199 mg/dL [facility] ([place]) [...] interpretive data was last revised 2017. Calcium 9.0 8.5 - 10.3 mg/dL [facility] ([place]) Bilirubin, total 0.4 0.1 - 1.2 mg/dL [facility] ([place]) Protein, pl 6.6 6.5 - 8.5 g/dL [facility] ([place]) Albumin 3.5 3.5 - 5.0 g/dL [facility] ([place]) Alk phos 142(H) 40 - 130 Units/L [facility] ([place]) ALT 16 7 - 45 Units/L [facility] ([place]) AST 23 10 - 45 Units/L [facility] ([place]) Blood 11/08/2021 7:50 PM CDT 11/08/2021 8:10 PM CDT us Miriam Chavez MD LAB BLOOD ORDERABLES Fin al Result [facility] ([place]) 1 [facility] [place] [address] * (ABNORMAL) CBC with auto differential (11/08/2021 7:50 PM CDT) WBC 7.9 3.8 - 9.9 K/cumm [facility] ([place]) Hgb 11.2(L) 11.9 - 15.5 g/dL [facility] ([place]) Hct 34.7(L) 35.6 - 45.5 % [facility] ([place]) Plt 428(H) 150 - 400 K/cumm [facility] ([place]) MPV 9.2 9.1 - 12.3 fL [facility] ([place]) RBC 4.01 3.90 - 5.20 M/cumm [facility] MCV 86.5 81.3 - 96.4 fL [facility] MCH 27.9 27.1 - 33.3 pg [facility] MCHC 32.3 32.3 - 35.7 g/dL [facility] RDW CV 14.7 11.1 - 14.9 % [facility] RDW SD 46.9 35.7 - 48.1 fL [facility] NRBC abs 0.00 0.00 - 0.01 K/cumm [facility] Blood 11/08/2021 7:50 PM CDT 11/08/2021 8:10 PM CDT us Miriam Chavez MD LAB BLOOD ORDERABLES Fin al Result [facility] ([place]) 1 [facility] Department [place] [address] documented in this encounter Visit Diagnoses Diagnosis Left leg swelling- Primary Atherosclerosis of aorta (HCC) Atherosclerosis of aorta Superficial femoral artery occlusion (HCC) documented in this encounter Administered Medications Inactive Administered Medications - up to 3 most recent administrations Medication Order MAR Action Action Date Dose Rate Site acetaminophen (TYLENOL) tablet 325 mg 325 mg, oral, Every 6 hours scheduled, First dose on Mon11/09/21 at 0215 Given 11/09/2021 11:28 AM CDT 325 mg Given 11/09/2021 5:23 AM CDT 325 mg HYDROcodone-acetaminophen (NORCO) 5-325 mg per tablet 2 tablet 2 tablet, oral, Every 4 hours PRN, 1st line for pain, Starting on Mon11/09/21 at 0027, Indications: PainIndications:Pain Given 11/09/2021 12:42 AM CDT 2 tablets ioversoL (OPTIRAY 350) syringe syringe 125 mL 125 mL, intravenous, Once in imaging, contrast, Starting on Mon11/09/21 at 1110, For 1 dose Contrast Given 11/09/2021 11:11 AM CDT 125 mL lidocaine (LIDODERM) 5 % patch 3 patch 3 patch, transdermal, Administer over 12 Hours, Once, On Mon11/09/21 at 0215, For 1 dose, Do not cover the holes on the top side of the patch., Apply to affected area: back, leg, Laterality: Left Medication Applied 11/09/2021 5:23 AM CDT 3 patches Back methocarbamoL (ROBAXIN) tablet 1,000 mg 1,000 mg, oral, Once, On Mon11/09/21 at 0215, For 1 dose Given 11/09/2021 5:23 AM CDT 1,000 mg morphine injection 2 mg 2 mg, intravenous, Administer over 4 Minutes, Every 3 hours PRN, 2nd line for pain, Starting on Mon11/09/21 at 0027, Indications: PainIndications:Pain Given 11/09/2021 2:24 PM CDT 2 mg Given 11/09/2021 10:31 AM CDT 2 mg Given 11/09/2021 6:48 AM CDT 2 mg ondansetron ODT (ZOFRAN-ODT) disintegrating tablet 4 mg 4 mg, oral, Every 4 hours PRN, nausea, vomiting, Starting on Mon11/09/21 at 0029, Indications: Nausea, VomitingIndications:Nausea,Vomitin g Given 11/09/2021 12:42 AM CDT 4 mg pantoprazole (PROTONIX) 40 mg/10 mL in sodium chloride 0.9% (premix) 40 mg 40 mg, intravenous, Administer over 2 Minutes, Once, On Mon11/09/21 at 1057, For 1 dose, Indications: Treatment of Non-Bleeding Gastric DisorderIndications:Treatment of Non-Bleeding Gastric Disorder Given 11/09/2021 11:27 AM CDT 40 mg pramipexole (MIRAPEX) tablet 0.125 mg 0.125 mg, oral, 3 times daily, First dose on Mon11/09/21 at 1057 Given 11/09/2021 11:27 AM CDT 0.125 mg propranoloL (INDERAL) tablet 20 mg 20 mg, oral, 2 times daily, First dose on Mon11/09/21 at 1057 Given 11/09/2021 11:29 AM CDT 20 mg sodium chloride 0.9% bolus 500 mL 500 mL, intravenous, at 500 mL/hr, Administer over 1 Hours, Once, On Mon11/09/21 at 0030, For 1 dose New Bag 11/09/2021 12:59 AM CDT 500 mL 500 mL/hr documented in this encounter Active and Recently Administered Medications Times are shown in CDT. Scheduled Medication Order 11/07/2021 11/08/2021 11/09/2021 acetaminophen (TYLENOL) tablet 325 mg 325 mg, oral, Every 6 hours scheduled, First dose on Mon11/09/21 at 0215 0523 (Given - Provid er: Shahab García RN)0656 (Canceled Entry - Provider: Dariela Stern RN)1128 (Given - Provider: Dariela Stern RN) lidocaine (LIDODERM) 5 % patch 3 patch 3 patch, transdermal, Administer over 12 Hours, Once, On Mon11/09/21 at 0215, For 1 dose, Do not cover the holes on the top side of the patch., Apply to affected area: back, leg, Laterality: Left 0523 (Medication Tawny lied - Provider: Shahab García RN)1723 (Due: Medication Removed - Provider: Shahab García RN) methocarbamoL (ROBAXIN) tablet 1,000 mg (COMPLETED) 1,000 mg, oral, Once, On Mon11/09/21 at 0215, For 1 dose 0523 (Given - Provid er: Shahab García RN) pantoprazole (PROTONIX) 40 mg/10 mL in sodium chloride 0.9% (premix) 40 mg (COMPLETED) 40 mg, intravenous, Administer over 2 Minutes, Once, On Mon11/09/21 at 1057, For 1 dose, Indications: Treatment of Non-Bleeding Gastric Disorder 1127 (Given - Provid er: Dariela Stern RN) pramipexole (MIRAPEX) tablet 0.125 mg 0.125 mg, oral, 3 times daily, First dose on Mon11/09/21 at 1057 1127 (Given - Provid er: Dariela Stern RN) propranoloL (INDERAL) tablet 20 mg 20 mg, oral, 2 times daily, First dose on Mon11/09/21 at 1057 1129 (Given - Provid er: Dariela Stern RN) sodium chloride 0.9% bolus 500 mL (COMPLETED) 500 mL, intravenous, at 500 mL/hr, Administer over 1 Hours, Once, On Mon11/09/21 at 0030, For 1 dose 0059 (New Bag - Prov ider: Shahab García RN)0223 (Stopped - Provider: Shahab García RN) PRN Medication Order 11/07/2021 11/08/2021 11/09/2021 HYDROcodone-acetaminophen (NORCO) 5-325 mg per tablet 2 tablet 2 tablet, oral, Every 4 hours PRN, 1st line for pain, Starting on Mon11/09/21 at 0027, Indications: Pain 0042 (Given - Provid er: Shahab García RN) ioversoL (OPTIRAY 350) syringe syringe 125 mL (COMPLETED) 125 mL, intravenous, Once in imaging, contrast, Starting on Mon11/09/21 at 1110, For 1 dose 1111 (Contrast Given - Provider: Jacqueline Mary, RT - Comment: [id number] 01/08) morphine injection 2 mg 2 mg, intravenous, Administer over 4 Minutes, Every 3 hours PRN, 2nd line for pain, Starting on Mon11/09/21 at 0027, Indications: Pain 0042 (Given - Provid er: Shahab García RN)0648 (Given - Provider: Dariela Stern RN)1031 (Given - Provider: Dariela Stern RN)1424 (Given - Provider: Dariela Stern, XU) ondansetron ODT (ZOFRAN-ODT) disintegrating tablet 4 mg 4 mg, oral, Every 4 hours PRN, nausea, vomiting, Starting on Mon11/09/21 at 0029, Indications: Nausea, Vomiting 0042 (Given - Provid er: Shahab García RN) documented in this encounter Orders Nursing Count Last Ordered Date First Orde red Date ED NURSING ORDER 1 11/09/2021 IV Count Last Ordered Date First Orde red Date INSERT PERIPHERAL IV 1 11/09/2021 documented in this encounter Care Teams Dye Feeder Relationship Specialty Start Date End Date Pepper Morgan MD PCP - General 09/16/16 Hank Garibay MD [address] [facility] [address] [address] [place] [address] Surgeon Orthopedic Surgery 03/27/17 Jacky Murry MD [address] [facility] [address] [address] [place] [address] Ophthalmology 03/27/17 Puma Mckenzie MD [address] [facility] [address] [place] [address] Surgeon Orthopedic Surgery 07/11/19 documented as of this encounter
--- OUTSIDE RECORDS SUMMARY | 2024-06-18 18:57 | XMS_ITS | Encounter Summary ---
Author Organization [facility] Address [address] [address] Care Team Providers Care Precision Layout Worker Name Role Phone Pepper Morgan MD Primary Care Provider [phone] Hank Garibay MD Unavailable [phone] Jacky Murry MD Unavailable [phone] Mary Mckenzie MD Unavailable [phone] Reason for Referral * Consultation (Routine) - Closed Specialty Diagnoses / Procedures Referred By Contac t Referred To Contact Pain Management Diagnoses Sciatic nerve pain, unspecified laterality Mary Mckenzie MD Phone: tel: Mary Johnson MD [address] [place] [id number] Phone: tel: fax: Referral ID Status Reason Start Date Expiration Date V isits Requested Visits Authorized [id number] Closed Specialty Services Required 11/05/2021 12/05/2022 1 1 Question Answer Please select the performing region: [facility] [144] To provider: MARY JOHNSON [[id number]] # of visits: 1 Comments Please schedule TOM per Dr. 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 Referral faxed to Dr. Johnson. * Telephone Encounter - Susy Hummel PA - 11/05/2021 12:12 PM CDT We can set up a referral to pain management for her sciatic pain. Please send an urgent referral toDr. Johnson's office. She should continue with her postoperative pain medication every four hours as needed. Verbal okay given to be seen three times a week. * Telephone Encounter - Mahesh Katothy - 11/05/2021 12:00 PM CDT Raquel with [facility] physical therapy calling to give report on patient. Her hip is not giving her pain but patient's back and sciatica pain is a 10 out of 10. She can't sleep at night and was not able to do the exercises today because of the pain. She is sleeping in recliner and that doesn't really help. Patient been using heat and Raquel told her to try ice. Raquel also wanted verbal ok for therapy 3 times a week until seen.. Raquel ph#[phone]. Patient is also taking the pain medication every 4 -6 hours. Any suggestions? documented in this encounter Plan of Treatment Scheduled Referrals Name Type Priority Associated Diagnoses Orde r Schedule Ambulatory referral to Pain Management Outpatient Referral Routine Sciatic nerve pain, unspecified laterality Expected: 11/06/2021 (Approximate), Expires: 11/05/2022 documented as of this encounter Visit Diagnoses Diagnosis Sciatic nerve pain, unspecified laterality- Primary documented in this encounter Care Teams Precision Layout Worker Relationship Specialty Start Date End Date Pepper Morgan MD PCP - General 09/16/16 Hank Garibay MD [address] [place] [address] [address] [place] [address] Surgeon Orthopedic Surgery 03/27/17 Jacky Murry MD [address] [place] [address] [address] [place] [address] Ophthalmology 03/27/17 Mary Mckenzie MD [address] [place] [address] [address] [place] [address] Surgeon Orthopedic Surgery 07/11/19 documented as of this encounter
--- OUTSIDE RECORDS SUMMARY | 2024-06-18 18:57 | XMS_ITS | Encounter Summary ---
Author Organization [facility] Address [address] [facility] [address] [place] [address] Care Team Providers Care Mint Machine Operator Name Role Phone Pepper Morgan MD Primary Care Provider + [phone] Hank Garibay MD Unavailable [phone] Jacky Murry MD Unavailable [phone] Puma Mckenzie MD Unavailable [phone] Reason for Visit * Reason Comments Leg Swelling Encounter Details Date Type Department Care Team (Late st Contact Info) Description 11/11/2021 1:40 PM CDT Office Visit [facility] [address] [place] [address] Tristin Morgan MD [address] [address] Left leg swelling (Primary Dx); Chronic pain disorder; Peripheral arterial disease (CMS/HCC) (HCC); Spinal stenosis of lumbar region with neurogenic claudication Social History Tobacco Use Types Packs/Day Years Used Date Smoking Tobacco: Former Cigarettes 2 30 1 952 - 1982 Smokeless Tobacco: Never Tobacco Cessation:Counseling Given: Yes Alcohol Use Standard Drinks/Week Comments Not Currently [...] on file 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 Gender Identity Not on file Sexual Orientation Not on file Occupation Industry Job Start Date Job End Date retired Not on file Not on file Not on file documented as of this encounter Last Filed Vital Signs Vital Sign Reading Time Taken Comments Blood Pressure 96/50 11/11/2021 1:40 PM CDT Pulse 87 11/11/2021 1:40 PM CDT Temperature 36.4 ??C (97.5 ??F) 11/11/2021 1:40 PM CD T Respiratory Rate 20 11/11/2021 1:40 PM CDT Oxygen Saturation 99% 11/11/2021 1:40 PM CDT Inhaled Oxygen Concentration - - Weight 93 kg (205 lb) 11/11/2021 1:40 PM CDT Height 152.4 cm (5') 11/11/2021 1:40 PM CDT Body Mass Index 40.04 11/11/2021 1:40 PM CDT documented in this encounter Patient Instructions * Patient Instructions* Tristin Morgan MD - 11/11/2021 8:41 AM CDT Continue current medication. Use Miralax up to 3 times a day to get your bowels moving. Take Zaroxolyn/metolazone diuretic 30' before furosemide for next 2 weeks. Continue to wrap the leg as instructed. Try starting with a cotton roll first, followed by Lenny wrap, followed by Coban. Start wrap at the foot and use a figure of eight, finishing above the knee. Keep the knee straight to prevent the wrap from collecting in the skin folds at the knee. front desk lead will order labs to be done tomorrow (BMP, CBC). Follow up in 1 week, or sooner if needed. documented in this encounter Ordered Prescriptions Prescription Sig Dispense Quantity Refills Last Filled Start Date End Date HYDROcodone-acetam inophen (NORCO) 7.5-325 mg per tabletIndications: Pain [The details of the medication are not available because there are pending changes by a home health clinician.] 40 tablet 11/11/2021 2 naloxone (NARCAN) 4 mg/actuation spray,non-aerosolI ndications:Chronic pain disorder Administer 1 spray into affected nostril(s) as needed for opioid reversal or respiratory depression Call 911. Administer a single spray in one nostril. Repeat every 3 minutes as needed if no or minimal response. 1 each 11/11/2021 2 HYDROcodone-acetam inophen (XODOL) 7.5-300 mg per tabletIndications: Chronic pain disorder Take 1-2 tablets by mouth every 6 (six) hours as needed (pain) 40 tablet 11/11/2021 2 metOLazone (ZAROXOLYN) 2.5 mg tabletIndications: Left leg swelling [The details of the medication are not available because there are pending changes by a home health clinician.] 14 tablet 11/11/2021 2 documented in this encounter Progress Notes * Tristin Morgan MD - 11/11/2021 1:40 PM CDT Problem List Items Addressed This Visit Cardiac and Vasculature Peripheral arterial disease (CMS/HCC) (HCC) (Chronic) She has considerable peripheral arterial disease including [...] in detail. Return in about one week. Musculoskeletal and Injuries Left leg swelling - Primary Since left hip replacement surgery 10 days ago, she has retained a lot of fluid. It is worse in theleft leg than the right leg. She his gained over 20 lb, mostly fluid weight. It was so bad that shewent to the emergency room two days ago. [...] in two weeks or sooner if needed. Relevant Medications metOLazone (ZAROXOLYN) 2.5 mg tablet Other Relevant Orders Basic metabolic panel (Completed) Neuro Spinal stenosis of lumbar region with neurogenic claudication (Chronic) We refilled her hydrocodone pending a follow up in pain management. Chronic pain disorder (Chronic) She is having a lot of pain, [...] heat and massage. Follow-up with pain management. Relevant Medications naloxone (NARCAN) 4 mg/actuation spray,non-aerosol Other Relevant Orders Basic metabolic panel (Completed) CBC with auto differential (Completed) HPI: The patient presents for evaluation and management of left leg pain and swelling post left hipreplacement and days ago, see above for details. We plan to see her back in a week, or sooner if needed. Review of Systems Constitutional: Negative for fever. Gastrointestinal: Positive for constipation ( due to narcotic pain medications given post left hip replacement). Endocrine: Quite obese, some of her weight is due to fluid retention. Genitourinary: Negative for dysuria and hematuria. Musculoskeletal: Positive for arthralgias ( left knee hurts, some blood has collected there from her recent left hip replacement) and back pain (Chronic, worse since her left hip replacement.). Current medication list reviewed and reconciled. See After Visit Summary for details. Allergies Allergen Reactions ??? Celecoxib Anaphylaxis ??? Scopolamine Mental status changes Delirium postop after joint replacement due to this medicine ??? Sulfa (Sulfonamide Antibiotics) Anaphylaxis ??? Amlodipine Swelling ??? Lisinopril Swelling ??? Trazodone Swelling Tongue ??? Cymbalta [Duloxetine] Fatigue Sleepiness, tiredness possibly related to 20 mg morning dose of this medicine discontinued 11/30/2020 ??? Sinemet [Carbidopa-Levodopa] Other (See comments) Night hines Past Medical, Family and Social History: Pertinent details reviewed. Vitals: 11/11/21 1340 BP: 96/50 BP Location: Right arm Patient Position: Sitting Pulse: 87 Resp: 20 Temp: 36.4 ??C (97.5 ??F) SpO2: 99% Weight: 93 kg (205 lb) Height: 152.4 cm (5') Physical Exam Constitutional: General: She is not in acute distress. Cardiovascular: Pulses: Dorsalis pedis pulses are 0 on the right side. Posterior tibial pulses are 0 on the right side and 0 on the left side. Comments: Pulses not detected in the feet, difficult to assess in the left foot due to edema. Both feet seem reasonably well perfused with no cyanosis or ischemic gangrene/ulcers. The left toes are mildly cool compared to the right toes. Pulmonary: Effort: Pulmonary effort is normal. Musculoskeletal: Right lower leg: Edema (Trace pitting) present. Left lower leg: Edema (Tr-1+ pitting) present. Skin: Capillary Refill: Capillary refill takes 2 to 3 seconds. Neurological: General: No focal deficit present. Mental Status: She is alert. Psychiatric: Behavior: Behavior normal. Thought Content: Thought content normal. Comments: Mildly to moderately dysphoric from her pain and constipation. Labs/Imaging/Other: We reviewed recent labs and imaging from her ER visit two days ago. Patient Active Problem List Diagnosis Code ??? 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 Chronic GERD K21.9 ??? 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 I10 ??? Restless legs syndrome G25.81 ??? 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 Insomnia, persistent G47.00 ??? Chronic pain disorder G89.4 ??? Knee joint replacement status, bilateral Z96.653 ??? History of malignant melanoma Z85.820 ??? Constipation due to opioid therapy K59.03, T40.2X5A ??? Atrial fibrillation (CMS/HCC) ([facility]) I48.91 ??? Left facial swelling R22.0 ??? Primary osteoarthritis of left hip M16.12 ??? Facial swelling R22.0 ??? Angio-edema T78.3XXA ??? Allergic rhinitis due to allergen J30.9 ??? Cough R05.9 ??? Left leg swelling M79.89 ??? Spinal stenosis of lumbar region with neurogenic claudication M48.062 ??? Peripheral arterial disease (CMS/HCC) (HCC) I73.9 ??? 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 Lumbar radiculopathy M54.16 ??? 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.42, G89.29 documented in this encounter Miscellaneous Notes * Assessment & Plan Note - Tristin Morgan MD - 11/20/2021 2:40 PM CDT Associated Problem(s): Spinal stenosis of lumbar region with neurogenic claudication We refilled her hydrocodone pending a follow up in pain management. * Assessment & Plan Note - Tristin Mogran MD - 11/11/2021 2:43 PM CDT Associated Problem(s): Peripheral arterial disease (HCC) She has considerable peripheral arterial disease including [...] in detail. Return in about one week. * Assessment & Plan Note - Tristin Morgan MD - 11/11/2021 2:41 PM CDT Associated Problem(s): Left leg swelling (Resolved 01/24/2022) Since left hip replacement surgery 10 days ago, she has retained a lot of fluid. It is worse in theleft leg than the right leg. She his gained over 20 lb, mostly fluid weight. It was so bad that shewent to the emergency room two days ago. [...] in two weeks or sooner if needed. * Assessment & Plan Note - Tristin Morgan MD - 11/11/2021 2:39 PM CDT Associated Problem(s): Chronic pain disorder (Resolved 12/08/2022) She is having a lot of pain, [...] heat and massage. Follow-up with pain management. documented in this encounter Plan of Treatment Not on file documented as of this encounter Procedures Procedure Name Priority Date/Time Associated Diagnosis Comments CBC WITH AUTO DIFFERENTIAL Routine 11/12/2021 10:36 AM CDT Chronic pain disorder BASIC METABOLIC PANEL Routine 11/12/2021 10:36 AM CDT Left leg swelling Chronic pain disorder documented in this encounter Results * (ABNORMAL) CBC with auto differential (11/12/2021 10:36 AM CDT) WBC 9.9 3.8 - 10.8 Thousand/u L [facility] RBC, POC 4.13 3.80 - 5.10 Million/uL [facility] Hgb 11.4(L) 11.7 - 15.5 g/dL [facility] Hct 35.8 35.0 - 45.0 % [facility] MCV 86.7 80.0 - 100.0 fL [facility] MCH 27.6 27.0 - 33.0 pg [facility] MCHC 31.8(L) 32.0 - 36.0 g/dL [facility] Rdw 14.1 11.0 - 15.0 % [facility] Platelets 584(H) 140 - 400 Thousand/u L [facility] MPV 9.1 7.5 - 12.5 fL [facility] Neutrophils, abs 7,613 1,500 - 7,800 cells/uL [facility] Lymphocytes, abs 1,030 850 - 3,900 cells/uL [facility] Monocyte abs 713 200 - 950 cells/uL [facility] Eosinophils, abs 465 15 - 500 cells/uL [facility] Basophils, abs 79 0 - 200 cells/uL [facility] Neutrophils 76.9 % [facility] Lymphocyte pct 10.4 % [facility] Monocytes 7.2 % [facility] Eosinophils 4.7 % [facility] Basophils 0.8 % [facility] Blood specimen (specimen) 11/12/2021 10:36 AM CDT 11/12/2021 10:37 AM CDT us Tristin Morgan MD LAB BLOOD ORDERABLES Final Re sult [facility] [address] [place] [address] * (ABNORMAL) Basic metabolic panel (11/12/2021 10:36 AM CDT) [facility] Glucose 91 65 - 99 mg/dL [facility] Comment: ? Fasting reference interval BUN 17 7 - 25 mg/dL [facility] Creatinine 0.65 0.60 - 0.88 mg/dL [facility] Comment: For patients >49 years of age, the reference limit for Creatinine is approximately 13% higher for people identified as -Australian. eGFR NON-AFR. SAMOAN 82 > OR = 60 mL/min/1 .73m2 [facility] EGFR 95 > OR = 60 mL/min/1 .73m2 [facility] BUN/creat ratio NOT APPLICABLE 6 - 22 (calc) [facility] Sodium 134(L) 135 - 146 mmol/L [facility] Potassium, pl 4.8 3.5 - 5.3 mmol/L [facility] Chloride 93(L) 98 - 110 mmol/L [facility] CO2 31 20 - 32 mmol/L [facility] Calcium 9.5 8.6 - 10.4 mg/dL [facility] Blood specimen (specimen) 11/12/2021 10:36 AM CDT 11/12/2021 10:37 AM CDT Tristin Morgan MD LAB BLOOD ORDERABLES Final Re sult [facility] [address] [address] [place] [id number] documented in this encounter Visit Diagnoses Diagnosis Left leg swelling- Primary Chronic pain disorder Chronic pain syndrome Peripheral arterial disease (HCC) Unspecified peripheral vascular disease Spinal stenosis of lumbar region with neurogenic claudication documented in this encounter Discontinued Medications Medication Sig Discontinue Reason Start Date End Da te ascorbic acid (VITAMIN C) 500 mg tablet,chewable Take 500 mg by mouth daily Therapy completed 11/11/2021 ferrous sulfate 325 mg (65 mg of elemental iron) tabletIndications:Iron Deficiency Anemia,Anemia prevention Take 1 tablet (325 mg total) by mouth daily with breakfast Therapy completed 11/03/2021 11/11/2021 HYDROcodone-acetaminoph en (NORCO) 5-325 mg per tabletIndications:Pain Take 1-2 tablets by mouth every 4 (four) hours as needed for pain Duplicate order 11/02/2021 11/11/2021 HYDROcodone-acetaminoph en (NORCO) 5-325 mg per tabletIndications:Pain Take 1 tablet by mouth every 6 (six) hours as needed for pain for up to 15 days Dose adjustment 11/09/2021 11/11/2021 HYDROcodone-acetaminoph en (XODOL) 7.5-300 mg per tabletIndications:Chron ic pain disorder Take 1-2 tablets by mouth every 6 (six) hours as needed (pain) Formulary change 11/11/2021 11/11/2021 documented as of this encounter Care Teams Mint Machine Operator Relationship Specialty Start Date End Date Pepper Morgan MD PCP - General 09/16/16 Hank Garibay MD 4 [facility] [address] [place] [address] Surgeon Orthopedic Surgery 03/27/17 Jacky Murry MD 4 [facility] [address] [place] [address] Ophthalmology 03/27/17 Puma Mckenzie MD 4 [facility] [address] [place] [address] Surgeon Orthopedic Surgery 07/11/19 documented as of this encounter
--- OUTSIDE RECORDS SUMMARY | 2024-06-18 18:57 | XMS_ITS | Encounter Summary ---
Author Organization [facility] Address [address] [place] [address] Phone Care Team Providers Care Jewel Bearing Grinder Name Role Phone Pepper Morgan MD Primary Care Provider + [phone] Hank Garibay MD Unavailable [phone] Jacky Murry MD Unavailable [phone] Puma Mckenzie MD Unavailable [phone] Reason for Visit * Auth/Cert Specialty Diagnoses / Procedures Referred By Contac t Referred To Contact Referral ID Status Reason Start Date Expiration Date Visits Re quested Visits Authorized [id number] 1 1 Encounter Details Date Type Department Care Team (Late st Contact Info) Description 11/04/2021 Home Care Visit [facility] - [place] [address] [address] [place] [address] Carrie Christiansen, XU SBAR-START OF CARE/RESUMPTION Social History Tobacco Use Types Packs/Day Years [...] on file 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 Gender Identity Not on file Sexual Orientation Not on file Occupation Industry Job Start Date Job End Date retired Not on file Not on file Not on file documented as of this encounter Plan of Treatment Not on file documented as of this encounter Visit Diagnoses Not on filedocumented in this encounter Care Teams Jewel Bearing Grinder Relationship Specialty Start Date End Date Pepper Morgan MD PCP - General 09/16/16 Hank Garibay MD [address] [facility] [address] [place] [address] Surgeon Orthopedic Surgery 03/27/17 Jacky Murry MD [address] [place] [address] [address] [place] [address] Ophthalmology 03/27/17 Puma Mckenzie MD [address] [place] [address] [address] [place] [address] Surgeon Orthopedic Surgery 07/11/19 documented as of this encounter
--- OUTSIDE RECORDS SUMMARY | 2024-06-18 18:57 | XMS_ITS | Encounter Summary ---
Author Organization [facility] Address [address] [place] [address] Care Team Providers Care Core Mounter Name Role Phone Pepper Morgan MD Primary Care Provider [phone] Hank Garibay MD Unavailable [phone] Jacky Murry MD Unavailable [phone] Puma Mckenzie MD Unavailable Reason for Visit * Consultation (Routine) - Closed Specialty Diagnoses / Procedures Referred By Contac t Referred To Contact Orthopedic Surgery Diagnoses Hip arthritis Pepper Morgan MD Phone: tel: fax: Puma Mckenzei MD Phone: tel: Referral ID Status Reason Start Date Expiration Date V isits Requested Visits Authorized [id number] Closed Specialty Services Required 06/09/2021 07/09/2022 12 12 Encounter Details Date Type Department Care Team (Late st Contact Info) Description 11/17/2021 1:00 PM CDT Telemedicine [facility] Medical [facility] Orthopedics and Sports Medicine [address] [place] [address] [address] [place] [address] [place] [address] [place] [address] Aftercare following left hip joint replacement surgery (Primary Dx) Social History Tobacco Use Types [...] on file 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 This was a telemedicine visit with Tess maretll which took place via Telephone. During the visit, I was located in the office and the patient was located at home. The patient visit startedat 1:00 and ended at 1:15. My total encounter time on 11/17/2021 was 15 minutes which was spent in the activities documented in the note. This includes time spent prior to the visit and after the visitin direct care of the patient. This time does not include time spent in any separately reportable services.. The patient has been informed that the visit may not be secure and acknowledged the information. I have explained the option of participating in a telephone or video visit during the COVID-19 public health emergency to the patient. After being given an opportunity to ask questions about and discuss this type of visit, the patient verbally consented to proceeding with the telephone/video visit.The patient understands that this service replaces an office visit and they may be billed and/or responsible for any applicable copayments. TEO [facility] POST-OPERATIVE PROGRESS NOTE History of Present Illness Patient is a 85 y.o. female who presents for a 2 week follow-up s/p left total hip arthroplasty. The patient has no complaints at this time and has been progressing well. She unfortunately has been having quite a bit of back pain since her surgery which has been her main source of pain post-operatively. She saw Dr. Johnson yesterday who prescribed Hilham 10-325mg and flexeril. The patient is currently ambulating with a straight cane and walker. Pain is well controlled with oral pain medications. Per the patient, the incision is healing well without surrounding erythema, drainage, warmth, or gapping at the incision. Zipline is in place. The patient has good range of motion of the hip without imp ingement. She states her sensation is intact and the lower extremity is warm, showing good perfusion throughout. She states she has lower leg swelling and is unable to wear the azar hose. She has beendiligent to perform ankle pumps, ice, and elevate. Doppler done last week was negative for DVT. ROS Negative except for stated in HPI. Physical Exam Physical exam not performed due to telemedicine visit. Assessment 1. S/P left ASHLEE, progressing well. Plan 1. Continue WBAT and activity as tolerated. Remove zipline in 1 week. 2. Continue Eliquis 5mg for post-operative DVT prophylaxis 3. Continue home therapy and daily home exercise program. 4. Follow up in 4 weeks for re-evaluation. 5. Continue follow ups with Dr. Johnson regarding back pain Cosigned by Puma Mckenzie MD at 11/19/2021 9:18 AM CDT documented in this encounter Plan of Treatment Not on file documented as of this encounter Visit Diagnoses Diagnosis Aftercare following left hip joint replacement surgery- Primary documented in this encounter Care Teams Core Mounter Relationship Specialty Start Date End Date Pepper Morgan MD PCP - General 09/16/16 Hank Garibay MD [address] [facility] [address] [place] [address] Surgeon Orthopedic Surgery 03/27/17 Jacky Murry MD [address] [facility] [address] WARNER [address] [address] Ophthalmology 03/27/17 Puma Mckenzie MD [address] [facility] [address] WARNER Sher[address] [address] Surgeon Orthopedic Surgery 07/11/19 documented as of this encounter
--- OUTSIDE RECORDS SUMMARY | 2024-06-18 18:57 | XMS_ITS | Encounter Summary ---
Author Organization [facility] Address [address] [place] [address] Phone Care Team Providers Care Typewriters Functional Tester Name Role Phone Pepper Morgan MD Primary Care Provider + [phone] Hank Garibay MD Unavailable [phone] Jacky Murry MD Unavailable [phone] Puma Mckenzie MD Unavailable [phone] Reason for Visit * Reason Comments Hip Problem * Auth/Cert Specialty Diagnoses / Procedures Referred By Contac t Referred To Contact Referral ID Status Reason Start Date Expiration Date Visits Re quested Visits Authorized [id number] 1 1 Encounter Details Date Type Department Care Team (Late st Contact Info) Description 11/16/2021 11:00 AM CDT Home Care Visit [facility] Home Health [address] [address] [address] [place] [address] Mecca Ayala PTA PT HOME VISIT Social History Tobacco Use Types Packs/Day Years [...] Sign Reading Time Taken Comments Blood Pressure 118/70 11/16/2021 11:47 AM CDT Pulse 84 11/16/2021 11:47 AM CDT Temperature 36 ??C (96.8 ??F) 11/16/2021 11:47 AM CDT Respiratory Rate 18 11/16/2021 11:47 AM CDT Oxygen Saturation 95% 11/16/2021 11:47 AM CDT Inhaled Oxygen Concentration - - Weight - - Height - - Body Mass Index - - documented in this encounter Miscellaneous Notes * Home Health Plan for Next Visit - Mecca Ayala PTA - 11/16/2021 11:10 AM CDT Reason for today's visit progress on gait outdoors and up and down steps in front of home Discuss plan of care with pt Discharge planning for next week Plan for next visit to progress with standing activities and progress to cane documented in this encounter Plan of Treatment Not on file documented as of this encounter Visit Diagnoses Not on filedocumented in this encounter Home Health Visit - Care Plan Visit Details Visit Type -PT Home Visit Discipline -Physical Therapy Problems Problem Description Start Date Status Goals Interve ntions Homebound Status Disciplines: Skilled Disciplines Patient's homebound status 11/04/2021 Active 1 goal linked to scheduled/documen azar intervention 1 goal intervention scheduled/documen azar in this visit Monitor patient's vital signs every home health visit Disciplines: SN, PT, OT, STORM DOOR MAKER, PARTS CASTING MACHINE OPERATOR, Skilled Disciplines Monitor patient's vital signs every [...] goal intervention scheduled/documen azar in this visit Wound Care Disciplines: Core Disciplines Wound care needed 11/04/2021 Active 1 goal linked to scheduled/documen [...] visit during episode of care Description: Home winter sports manager to measure vital signs during every home [...] of pain and symptom control. Pain No Progression towards healing Description: Keep wound #1 clean and dry for 5 days. May shower on the 5th day. To perform PRN dressing changes thereafter. Wound Care No Interventions Intervention Associated Problem/Goal Status Variance [...] concerns Goal:Demonstrate use of safety precautions Completed instructed to use walker at all times Instruct on pain management techniques Description: Instruct in pharmacologic and nonpharmacologic pain management techniques. Problem:Pain Goal:Report that pain has been reduced or controlled Completed pt goes to pain management later today Skilled assessment wound Description: Keep wound #1 clean and dry for 5 days. May take a shower on the 5th day.To perform PRN dressing changes thereafter. Problem:Wound Care Goal:Progression towards healing Completed wound picture taken and transmitted Home Exercise Program (HEP) Description: Instruct patient/caregiver and perform HEP. Problem:PT Orthopedic-Total Joint Replacement Completed while the pt is supine performs 15 reps of anklepumping, quad sets holding 3 seconds each, hip abd/add with cues to engage quad x 10 reps, heelslides x 10 reps and glut sets while seated laqs holding 3 seconds x 10 reps while standing instructed the pt on heel toe raises, hip abd/add and hamstring curls x 10 reps of each pt was issued standing written hep and is performing 2 times a day with asst of sister Gait/Stair Training Description: Instruct patient/caregiver and perform gait/stair training. Problem:PT Orthopedic-Total Joint Replacement Completed gait in the home over level surfaces WBAT on the left for 50 ft x 2 and then outdoors on driveway to mailbox and back 120 ft outdoors with supervision pt does exhibit decrease in knee flexion during swing thru up and down single step out the door with min asst to move the walker cues for correctly ascending and descending and then 2 steps at end of porch with walker Bed Mobility/Transfer Training Description: Instruct patient/caregiver and perform bed mobility/transfer training. Problem:PT Orthopedic-Total Joint Replacement Completed sit to from stand from recliner depending on ues, supine to from sit today without using gaitbelt to lift the left leg in and out of bed improvement with bed mobility able to roll to the right side with pillow between legs Therapeutic Exercise Description: Perform therapeutic exercise, progressing as tolerated. Problem:PT Orthopedic-Total Joint Replacement Completed see HEP comments documented in this encounter Care Teams Typewriters Functional Tester Relationship Specialty Start Date End Date Pepper Morgan MD PCP - General 09/16/16 Hank Garibay MD [address] [facility] [address] [place] [address] Surgeon Orthopedic Surgery 03/27/17 Jacky Murry MD [address] [facility] [address] [place] [address] Ophthalmology 03/27/17 Puma Mckenzie MD [address] [facility] [address] [place] [address] Surgeon Orthopedic Surgery 07/11/19 documented as of this encounter
--- OUTSIDE RECORDS SUMMARY | 2024-06-18 18:57 | XMS_ITS | Encounter Summary ---
Author Organization [facility] Home Care [facility] es Address [address] [place] [address] Phone Care Team Providers Care Product Design Specialist Name Role Phone Pepper Morgan MD Primary Care Provider +- [phone] Hank Garibay MD Unavailable [phone] Jacky Murry MD Unavailable [phone] Puma Mckenzie MD Unavailable [phone] Encounter Details Date Type Department Care Team (Late st Contact Info) Description 11/04/2021 Plan of Care Documentation [facility] [address] [place] [address] Social History Tobacco Use Types Packs/Day Years [...] on file Legal 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 Gender Identity Not on file Sexual Orientation Not on file Occupation Industry Job Start Date Job End Date retired Not on file Not on file Not on file documented as of this encounter Plan of Treatment Not on file documented as of this encounter Visit Diagnoses Not on filedocumented in this encounter Care Teams Product Design Specialist Relationship Specialty Start Date End Date Pepper Morgan MD PCP - General 09/16/16 Hank Garibay MD [address] [facility] [address] [place] [address] Surgeon Orthopedic Surgery 03/27/17 Jacky Murry MD [address] [facility] [address] [place] [address] Ophthalmology 03/27/17 Puma Mckenzie MD [address] [facility] [address] [place] [address] Surgeon Orthopedic Surgery 07/11/19 documented as of this encounter
--- OUTSIDE RECORDS SUMMARY | 2024-06-18 18:57 | XMS_ITS | Encounter Summary ---
Author Organization [facility] Home Care [facility] es Address [address] [place] [address] Phone Care Team Providers Care Edger Runner Name Role Phone Pepper Morgan MD Primary Care Provider + [phone] Hank Garibay MD Unavailable [phone] Jacky Murry MD Unavailable [phone] Puma Mckenzie MD Unavailable [phone] Reason for Visit * Auth/Cert Specialty Diagnoses / Procedures Referred By Contac t Referred To Contact Referral ID Status Reason Start Date Expiration Date Visits Re quested Visits Authorized [id number] 1 1 Encounter Details Date Type Department Care Team (Late st Contact Info) Description 11/18/2021 Home Care Visit [facility] Home Health [address] [place] [address] Mecca Ayala PTA TELEPHONE ENCOUNTER Social History Tobacco Use Types Packs/Day Years [...] on file Legal 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 Female 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 Gender Identity Not on file Sexual Orientation Not on file Occupation Industry Job Start Date Job End Date retired Not on file Not on file Not on file documented as of this encounter Plan of Treatment Not on file documented as of this encounter Visit Diagnoses Not on filedocumented in this encounter Care Teams Edger Runner Relationship Specialty Start Date End Date Pepper Morgan MD PCP - General 09/16/16 Hank Garibay MD [address] [facility] [address] [place] [address] Surgeon Orthopedic Surgery 03/27/17 Jacky Murry MD [address] [place] [address] [address] [place] [address] Ophthalmology 03/27/17 Puma Mckenzie MD [address] [place] [address] [address] [place] [address] Surgeon Orthopedic Surgery 07/11/19 documented as of this encounter
--- OUTSIDE RECORDS SUMMARY | 2024-06-18 18:57 | XMS_ITS | Encounter Summary ---
Author Organization [facility] Address [address] [place] [address] Care Team Providers Care Direct Support Staff Name Role Phone Pepper Morgan MD Primary Care Provider + [phone] Hank Garibay MD Unavailable [phone] Jacky Murry MD Unavailable [phone] Puma Mckenzie MD Unavailable [phone] Reason for Visit * Reason Onset Date Comments SOB/ leg swelling/weight gain 11/10/2021 Encounter Details Date Type Department Care Team (Late st Contact Info) Description 11/10/2021 Telephone [facility] [address] [place] [address] Pepper Morgan MD [address] [place] [address] SOB/ leg swelling/weight gain Social History Tobacco Use Types Packs/Day Years [...] on file Legal 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 Female 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 In the meantime she will need to get referred to a vascular surgeon for her peripheral vascular disease = this doctor came through and had avisit with us a few months back, Dr. Huber located down in [place]--please tell Dr. Russ in the meantime sounds like she is uncomfortable in need something to help with this bad swelling * Telephone Encounter - Pepper Morgan MD - 11/10/2021 9:36 PM CDT I believe Dr. Russ may have openings for sick call afternoon, please have her seen and he can help with the constipation as well as figure out what is causing the swelling * Telephone Encounter - Luis E Washington RN - 11/10/2021 2:53 PM CDT Spoke to pt et [facility] HH TEARER re: below Informed pt Dr Morgan does refer pt to [facility] ER Pt cont to c/o SOB 16 lb weight gain Increased swell in L leg post op Hip replace Constipation-taking Senna S et Miralax prn Pt was seen in ER yest for eval of above Dr Mckenzie's office also aware of above et advising on pt care Dr Mckenzie order daily full leg wrap per HH TEARER for swelling ER informed pt she will need later refer to vascular surgeon for poss stent of both legs Pt taking lasix 40 mg daily and Spironolactone 12.5 mg daily. Pt asking if needs to increase Lasix for fluid retention Please advise * Telephone Encounter - Tami Alejandro - 11/10/2021 12:18 PM CDT Update See message below. Patient is having increasing SOB, swelling, wanting to rule out a blood clot in left leg. Had a weight gain of 16 lbs in the last week. BP today was 100/62. Pulse ox is 94, heart rate is 82. Is having constipation issues. Told to stop iron. CBN: [phone] * Telephone Encounter - Vickie Araujo - 11/10/2021 8:18 AM CDT Patient was at the er for along time at [facility] and she needs to talk to [facility]. That er is a joke. She heard that [facility] doesn't send her patients to [facility].cbn: [phone] documented in this encounter Plan of [...] on filedocumented in this encounter Care Teams Direct Support Staff Relationship Specialty Start Date End Date Pepper Morgan MD PCP - General 09/16/16 Hank Garibay MD [address] [facility] [address] [place] [address] Surgeon Orthopedic Surgery 03/27/17 Jacky Murry MD [address] [place] [address] [address] WARN[address] [facility] [address] [place] [address] Ophthalmology 03/27/17 Puma Mckenzie MD [address] [facility] [address] [place] [address] Surgeon Orthopedic Surgery 07/11/19 documented as of this encounter
--- OUTSIDE RECORDS SUMMARY | 2024-06-18 18:57 | XMS_ITS | Encounter Summary ---
Author Organization [facility] Home Care [facility] es Address [address] [place] [address] Phone Care Team Providers Care Motor Vehicle Salesperson Name Role Phone Pepper Morgan MD Primary Care Provider + [phone] Hank Garibay MD Unavailable [phone] Jacky Murry MD Unavailable [phone] Puma Mckenzie MD Unavailable [phone] Reason for Visit * Auth/Cert Specialty Diagnoses / Procedures Referred By Contac t Referred To Contact Referral ID Status Reason Start Date Expiration Date Visits Re quested Visits Authorized [id number] 1 1 Encounter Details Date Type Department Care Team (Late st Contact Info) Description 11/18/2021 Home Care Visit [facility] Home Health [address] [address] [address] [place] [address] Aurelia Marie RN SN DISCIPLINE DISCHARGE Social History Tobacco Use Types Packs/Day [...] on file 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 Gender Identity Not on file Sexual Orientation Not on file Occupation Industry Job Start Date Job End Date retired Not on file Not on file Not on file documented as of this encounter Plan of Treatment Not on file documented as of this encounter Visit Diagnoses Not on filedocumented in this encounter Home Health Visit - Care Plan Visit Details Visit Type -SN Discipline Magdalena bolton Discipline -Group Home Problems Problem Description Start Date Status Goals Interve ntions Homebound Status Disciplines: Skilled Disciplines Patient's homebound status 11/04/2021 Active 1 goal linked to scheduled/docume nted intervention 1 goal intervention scheduled/documen azar in this visit Medications Disciplines: Group Home Management of home medications 11/04/2021 Resolved on 11/18/2021 1 goal linked to scheduled/docume nted intervention 2 goal interventions scheduled/documen azar in this visit Monitor patient's vital signs every home health visit Disciplines: SN, PT, OT, E COMMERCE DEVELOPER, HOME CARE CONSULTANT, Skilled Disciplines Monitor patient's vital signs every home health visit. 11/04/2021 Active 1 goal linked to scheduled/docume nted intervention 1 goal intervention scheduled/documen azar in this visit Safety concerns Disciplines: Skilled Disciplines Alteration in safety 11/04/2021 Active 1 goal linked to scheduled/docume nted intervention 2 goal interventions scheduled/documen azar in this visit Pain Disciplines: Core Disciplines Alteration in comfort 11/04/2021 Active 1 goal linked to scheduled/docume nted intervention 1 goal intervention scheduled/documen azar in this visit Goals Goal Associated Problem Outcome Goal Met? Visit Notes Patient receives care at the most appropriate care setting Description: Patient receives care at the most appropriate care setting. Homebound Status No Understand and follow medication therapy Description: Patient/caregiver will understand and follow prescribed medication therapy as evidence by having up to date medication list in home & ability to verbalize purpose, schedule, and side effects by the end of the episode of care Medications No Measure vital signs during every home health visit during episode of care Description: Home service desk manager to measure vital signs during every [...] care at the most appropriate care setting Scheduled Instruct medications Description: Instruct patient/caregiver in medication administration, purpose, dosages, preparation, scheduling, side effects, food/drug interactions, storage, drug allergies, and potential complications. Problem:Medications Goal:Understand and follow medication therapy Scheduled Instruct on medication side effects Description: Instruct patient/caregiver to monitor for side effects and adverse reactions Problem:Medications Goal:Understand and follow medication therapy Scheduled Monitor Vital Signs Description: Monitor blood pressure, pulse, oxygen saturation, respirations Problem:Monitor patient's vital signs every home health visit Goal:Measure vital signs during every home health visit during episode of care Scheduled Instruct Fall Prevention Description: Instruct patient/caregiver in methods to prevent falls Problem:Safety concerns Goal:Demonstrate use of safety precautions Scheduled Assess safety Description: Assess patient safety Problem:Safety concerns Goal:Demonstrate use of safety precautions Scheduled Instruct on pain management techniques Description: Instruct in pharmacologic and nonpharmacologic pain management techniques. Problem:Pain Goal:Report that pain has been reduced or controlled Scheduled documented in this encounter Care Teams Motor Vehicle Salesperson Relationship Specialty Start Date End Date Pepper Morgan MD PCP - General 09/16/16 Hank Garibay MD [address] [place] [address] [address] [address] Surgeon Orthopedic Surgery 10/9/17 Jacky Murry MD [address] [facility] [address] [place] [address] Ophthalmology 03/27/17 Puma Mckenzie MD [address] [facility] [address] [place] [address] Surgeon Orthopedic Surgery 07/11/19 documented as of this encounter
--- OUTSIDE RECORDS SUMMARY | 2024-06-18 18:57 | XMS_ITS | Encounter Summary ---
Author Organization [facility] Home Care Servic es Address [address] [place] [address] Phone Care Team Providers Care Motor Assembler Name Role Phone Pepper Morgan MD Primary Care Provider + [phone] Hank Garibay MD Unavailable [phone] Jacky Murry MD Unavailable [phone] Puma Mckenzie MD Unavailable [phone] Reason for Visit * Reason Comments Hip Pain * Auth/Cert Specialty Diagnoses / Procedures Referred By Contac t Referred To Contact Referral ID Status Reason Start Date Expiration Date Visits Re quested Visits Authorized [id number] 1 1 Encounter Details Date Type Department Care Team (Late st Contact Info) Description 11/18/2021 11:00 AM CDT Home Care Visit [facility] Home Health [address] [address] [address] [place] [address] Mecca Ayala PTA PT HOME VISIT Social [...] on file Legal Sex Female 4:33 AM EDI CONSULTANT Gender Identity Not on file Sexual Orientation Not on file Occupation Industry Job Start Date Job End Date retired Not on file Not on file Not on file documented as of this encounter Last Filed Vital Signs Vital Sign Reading Time Taken Comments Blood Pressure 108/58 11/18/2021 11:33 AM CDT Pulse 72 11/18/2021 11:33 AM CDT Temperature 36.1 ??C (96.9 ??F) 11/18/2021 11:33 AM C DT Respiratory Rate 18 11/18/2021 11:33 AM CDT Oxygen Saturation 99% 11/18/2021 11:33 AM CDT Inhaled Oxygen Concentration - - Weight - - Height - - Body Mass Index - - documented in this encounter Miscellaneous Notes * Home Health Visit Narrative - Mecca Ayala PTA - 11/18/2021 11:42 AM CDT pt saw Dr. Johnson cyclobenzaprine 10 mg take one tablet by mouth every night as needed for bedtime Rx [id number] also changed to Hydrocodone 10-325 mg take one tablet every 4 hrs as needed for pain Rx [id number] pt reports is very sleepy today and did contact pain management re pts pain level and that pt reports to call back that pt to start P.T and she wants to cont with home therapy however that she most likely to start outpatient as they have more options for pain control she states understanding adn isagreeable also discussed with her that next visit will be possible dc with Lili Camargo.T pt has been instructed when outdoors to use the wheeled walker and also at night but may use cane in the home * Home Health Plan for Next Visit - Mecca Ayala PTA - 11/18/2021 10:20 AM CDT Reason for today's visit to progress with gait using cane Discuss plan of care with pt Discharge planning for next visit Plan for next visit which is discharge visit with Lili Phelps documented in this encounter Plan of Treatment [...] home health visit Disciplines: SN, PT, OT, PIECE GOODS PACKER, COOLER CONVEYOR LOADER, Skilled Disciplines Monitor patient's vital signs every [...] visit during episode of care Description: Home button inspector to measure vital signs during every home [...] concerns Goal:Demonstrate use of safety precautions Completed to use the wheeled walker at night and outdoors but may use cane in the home during the day Instruct on pain management techniques Description: Instruct in pharmacologic and nonpharmacologic pain management techniques. Problem:Pain Goal:Report that pain has been reduced or controlled Completed pt takes pain meds and is under pain management Home Exercise Program (HEP) Description: Instruct patient/caregiver and perform HEP. Problem:PT Orthopedic-Total Joint Replacement Completed while standing pt has been instructed and performs 10 reps of heel toe raises, hip abd/add and hamstring curls and today tolerated 5 reps on the opposite leg without c/o of increase in pain while the pt is supine performs 15 reps of anklepumping, quad sets, heelslides, hip abd/add with cues to engage quad before completing, glut sets and saqs holding 3 seconds pt requires occasional cues to complete correctly Gait/Stair Training Description: Instruct patient/caregiver and perform gait/stair training. Problem:PT Orthopedic-Total Joint Replacement Completed gait in the home over level surfaces today with straight cane and pt does exhibit good gait pattern very slight limp on the left do recommend using wheeled walker at night and when outdoors gait outdoors on driveway with wheeled walker and up and down steps on porch using wheeled walker has step out the door and 2 steps at end of the driveway sob noted with gait activities Bed Mobility/Transfer Training Description: Instruct patient/caregiver and perform bed mobility/transfer training. Problem:PT Orthopedic-Total Joint Replacement Completed pt is now able to lift the left leg into bed and out without leg first line supervisor but does use bed cane, improved bed mobility pt using step to sit on the bed and does so safely sit to from stand depending on ues to push herself up Therapeutic Exercise Description: Perform therapeutic exercise, progressing as tolerated. Problem:PT Orthopedic-Total Joint Replacement Completed see HEP comments documented in this encounter Care Teams Motor Assembler Relationship Specialty Start Date End Date Pepper Morgan MD PCP - General 09/16/16 Hank Garibay MD [address] [facility] [address] [place] [address] Surgeon Orthopedic Surgery 03/27/17 Jacky Murry MD [address] [facility] [address] [place] [address] Ophthalmology 03/27/17 Puma Mckenzie MD [address] [facility] [address] [place] [address] Surgeon Orthopedic Surgery 07/11/19 documented as of this encounter
--- OUTSIDE RECORDS SUMMARY | 2024-06-18 18:57 | XMS_ITS | Encounter Summary ---
Author Organization [facility] Home Care Servic es Address [address] [place] [address] Phone Care Team Providers Care Jewel Inserter Name Role Phone Pepper Morgan MD Primary Care Provider + [phone] Hank Garibay MD Unavailable [phone] Jacky Murry MD Unavailable [phone] Puma Mckenzie MD Unavailable [phone] Reason for Visit * Auth/Cert Specialty Diagnoses / Procedures Referred By Contac t Referred To Contact Referral ID Status Reason Start Date Expiration Date Visits Re quested Visits Authorized [id number] 1 1 Encounter Details Date Type Department Care Team (Late st Contact Info) Description 11/11/2021 10:00 AM CDT Home Care Visit [facility] [address] [address] [address] [place] [address] Aurelia Marie RN SN HOME VISIT Social History Tobacco Use Types [...] on file 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 Gender Identity Not on file Sexual Orientation Not on file Occupation Industry Job Start Date Job End Date retired Not on file Not on file Not on file documented as of this encounter Last Filed Vital Signs Vital Sign Reading Time Taken Comments Blood Pressure 114/60 11/11/2021 10:16 AM CDT Pulse 89 11/11/2021 10:16 AM CDT Temperature 36.9 ??C (98.5 ??F) 11/11/2021 10:16 AM C DT Respiratory Rate 18 11/11/2021 10:16 AM CDT Oxygen Saturation 98% 11/11/2021 10:16 AM CDT Inhaled Oxygen Concentration - - Weight 90.7 kg (200 lb) 11/11/2021 10:16 AM CDT Height - - Body Mass Index 39.06 11/08/2021 6:50 PM CDT documented in this encounter Miscellaneous Notes * Home Health Plan for Next Visit - Aurelia Marie RN - 11/11/2021 10:07 AM CDT Reason for today's visit - SN visit for assessment of pain/swelling. Patient weighs self daily. Todays weight 200. Patient has edema of lower left leg- non pitting. She is reporting pain 01/26- she states that the pain is in low back and radiates to left leg. She states that she believes it is related to sciatica. Taking 2 T[place]man every 4 hours. She will out of pain medications by the weekend. Incision assessed- CDI and well approximated. Patient reported that she has been sleeping in a chair in her bedroom due to inability to become comfortable in her bed. Discussed with patient that sitting with legs in a dependant position will increase swelling / edema of lower extremities. Called Dr Mckenzie's office regarding pain issues and issue that patient will be out of pain medications by the weekend. Patient has a referral to pain management- not scheduled until end of December. Discuss plan of care with patient Discharge planning- when goals are met or maximized Plan for next visit - assessment of pain/edema documented in this encounter Plan of Treatment Not on file documented as of this encounter Visit Diagnoses Not on filedocumented in this encounter Home Health Visit - Care Plan Visit Details Visit Type -SN Home Visit Discipline -Fci Problems Problem Description Start Date Status Goals Interve ntions Homebound Status Disciplines: Skilled Disciplines Patient's homebound status 11/04/2021 Active 1 goal linked to scheduled/documen azar intervention 1 goal intervention scheduled/documen azar in this visit Medications Disciplines: Fci Management of home medications 11/04/2021 Active 1 goal linked to scheduled/documen azar intervention 4 goal interventions scheduled/documen azar in this visit Monitor patient's vital signs every home health visit Disciplines: SN, PT, OT, NETWORKING SPECIALIST, INSIDE SALES ADMINISTRATOR, Skilled Disciplines Monitor patient's vital signs every home health visit. 11/04/2021 Active 1 goal linked to scheduled/documen azar intervention 1 goal intervention scheduled/documen azar in this visit Multidisciplinar y Case Conference Disciplines: Skilled Disciplines Concurrently discusses plan of treatment and coordinate patient centered care 11/04/2021 Active 1 goal linked to scheduled/documen azar intervention Infection Prevention Disciplines: Skilled Disciplines Infection Prevention 11/04/2021 Active 1 goal linked to scheduled/documen azar intervention Safety concerns Disciplines: Skilled Disciplines Alteration in [...] the most appropriate care setting. Homebound Status Progressing No Understand and follow medication therapy Description: Patient/caregiver will understand and follow prescribed medication therapy as evidence by having up to date medication list in home & ability to verbalize purpose, schedule, and side effects by the end of the episode of care Medications Progressing No Measure vital signs during every home health visit during episode of care Description: Home chronic care nurse to measure vital signs during every home health visit during episode of care. Monitor patient's vital signs every home health visit Progressing No Care team will coordinate care Description: Care team will coordinate care centered on patient needs throughout the episode of care. Multidisciplinary Case Conference Progressing No Verbalize signs of infection Description: Patient/caregiver will demonstrate knowledge of infection prevention strategies by verbalizing signs and symptoms of infection. Infection Prevention Progressing No Demonstrate use of safety precautions Description: Patient/caregiver maintains safe home environment as evidenced by remaining free from injury and demonstrates use of safety precautions. Safety concerns Progressing No Report that pain has been reduced or controlled Description: Patient/caregiver/family will verbalize satisfaction with the patients level of pain and symptom control. Pain Not Progressing No Progression towards healing Description: Keep wound #1 clean and dry for 5 days. May shower on the 5th day. To perform PRN dressing changes thereafter. Wound Care Progressing No Interventions Intervention Associated Problem/Goal Status Variance [...] home due to activity intolerance post surgery. Instruct medications Description: Instruct patient/caregiver in medication administration, purpose, dosages, preparation, scheduling, side effects, food/drug interactions, storage, drug allergies, and potential complications. Problem:Medications Goal:Understand and follow medication therapy Completed Reviewed hydro/apap - dosing, side effects. Instruct on medication side effects Description: Instruct patient/caregiver to monitor for side effects and adverse reactions Problem:Medications Goal:Understand and follow medication therapy Completed Instructed patient to monitor for increased issues with constipation due to use of narcotics for pain relief. Patient verbalized under Instruct on high risk medications Description: Instruct patient/caregiver on high-risk/high-alert medications, including: anti-convulsant, anti-retroviral, anti-coagulant, chemotherapeutic, hypo-glycemic, immunosuppressant, insulin, and opioid. Problem:Medications Goal:Understand and follow medication therapy Completed Teaching High-risk/high-alert medications (specifically hydro/apap ) with Patient. Monitor effectiveness of drug therapy Description: Monitor effectiveness of patient's drug therapy Problem:Medications Goal:Understand and follow medication therapy Completed Monitor Vital Signs Description: Monitor blood pressure, [...] pain has been reduced or controlled Completed Instructed patient on use of heat to lower back to assist with pain relief. Also discusses proper body positioning when sitting to reduce pain from occuring. Patient noted to be sitting in a position that may exacerbate low back pain. Skilled assessment wound Description: Keep wound #1 clean and dry for 5 days. May take a shower on the 5th day.To perform PRN dressing changes thereafter. Problem:Wound Care Goal:Progression towards healing Completed documented in this encounter Care Teams Jewel Inserter Relationship Specialty Start Date End Date Pepper Morgan MD PCP - General 09/16/16 Hank Garibay MD [address] [facility] [address] [place] [address] Surgeon Orthopedic Surgery 03/27/17 Jacky Murry MD [address] [place] [address] [address] [place] [address] Ophthalmology 03/27/17 Puma Mckenzie MD [address] [place] [address] [address] [place] [address] Surgeon Orthopedic Surgery 07/11/19 documented as of this encounter
--- OUTSIDE RECORDS SUMMARY | 2024-06-18 18:57 | XMS_ITS | Encounter Summary ---
Author Organization [facility] Address [address] [place] [address] Care Team Providers Care Esthetic Dermatologist Name Role Phone Pepper Morgan MD Primary Care Provider + [phone] Hank Garibay MD Unavailable [phone] Jacky Murry MD Unavailable [phone] Puma Mckenzie MD Unavailable [phone] Encounter Details Date Type Department Care Team (Late st Contact Info) Description 11/17/2021 Telephone [facility] Orthopedics and Sports Medicine [address] [facility] [address] [place] [address] Puma Mckenzie MD [address] [place] [address] [address] [place] [address] Social History Tobacco Use Types [...] on file 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 Mckenzie scheduled * Telephone Encounter - Kathie Cox PA - 11/17/2021 1:13 PM CDT I called and discussed with her. Dr. Johnson prescribed [place] for her yesterday but she has not received it. I advised she call the pharmacy or Dr. Johnson's office to straighten this out. Overall, she states her pain is better. I performed her 2 week telemed while on the phone with her. Please call to schedule her with Dr. Mckenzie in 4 weeks with xrays. Thanks. * Telephone Encounter - Susan Larsen - 11/17/2021 9:42 AM CDT Called patient to move telemed appt on 11/18/21. To a different time. Patient expressed concerns that she is not for sure what meds she is to be taking after her visit with pain management yesterday. She would like a call from our office to go over meds. Patient does have a daughter that stays withher at night. Her sister stays with her during the day. As far as the surgery, no concerns, Patient was able to wallk down the driveway with no issue The therapist stated the incision looks great. Therapist is coming tomorrow @ 11am Patient callback # [phone] documented in this encounter Plan of Treatment Not on file documented as of this encounter Visit Diagnoses Not on filedocumented in this encounter Care Teams Esthetic Dermatologist Relationship Specialty Start Date End Date Pepper Morgan MD PCP - General 09/16/16 Hank Garibay MD [address] [facility] [address] [place] [address] Surgeon Orthopedic Surgery 03/27/17 Jacky Murry MD [address] [place] [address] [address] [place] [address] Ophthalmology 03/27/17 Puma Mckenzie MD [address] [place] [address] [address] [place] [address] Surgeon Orthopedic Surgery 07/11/19 documented as of this encounter
--- OUTSIDE RECORDS SUMMARY | 2024-06-18 18:57 | XMS_ITS | Encounter Summary ---
Author Organization [facility] Home Care Servic es Address [address] [place] [address] Phone Care Team Providers Care Diesel Technician Mechanic Name Role Phone Pepper Morgan MD Primary Care Provider + [phone] Hank Garibay MD Unavailable [phone] Jacky Murry MD Unavailable [phone] Puma Mckenzie MD Unavailable [phone] Reason for Visit * Reason Comments Hip Problem * Auth/Cert Specialty Diagnoses / Procedures Referred By Contac t Referred To Contact Referral ID Status Reason Start Date Expiration Date Visits Re quested Visits Authorized [id number] 1 1 Encounter Details Date Type Department Care Team (Late st Contact Info) Description 11/10/2021 11:00 AM CDT Home Care Visit [facility] Home Health [address] [address] [address] [place] [address] Mecca Ayala PTA PT HOME VISIT Social [...] on file 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 CARE HOME MOTHER Gender Identity Not on file Sexual Orientation Not on file Occupation Industry Job Start Date Job End Date retired Not on file Not on file Not on file documented as of this encounter Last Filed Vital Signs Vital Sign Reading Time Taken Comments Blood Pressure 100/62 11/10/2021 12:02 PM CDT Pulse 82 11/10/2021 12:02 PM CDT Temperature 35.9 ??C (96.7 ??F) 11/10/2021 12:02 PM C DT Respiratory Rate 18 11/10/2021 12:02 PM CDT Oxygen Saturation 94% 11/10/2021 12:02 PM CDT Inhaled Oxygen Concentration - - Weight - - Height - - Body Mass Index - - documented in this encounter Miscellaneous Notes * Home Health Visit Narrative - Mecca Ayala, PUTAWAY DRIVER - 11/10/2021 11:30 AM CDT pt reports she was in ED all day yesterday due to edema and sob pt reports since her surgery weightgait of 16 lbs with M.D is aware of pt to alberto wrap her left leg per M.D office due to unable to wear compression stockings pts sister present however is unable to assist with wrapping pt instructed to elevate the right leg properly while supine for 1 hr 3 times a day pt isnt able tolay that long she states so instructed to do what able and to elevate while in recliner sister instructed on positioning of pillows pt has chronic pain in back also and has been up to 8/10 pt is taking pain meds as needed pt reports constipation and requests not to take iron so when speaking with Gloria at M.D office she states ok to dc iron pt is agreeable with poc plan to see on 2nd visit end of week * Home Health Plan for Next Visit - Mecca Ayala PTA - 11/10/2021 11:30 AM CDT Reason for today's visit to assess wound and edema Discuss plan of care pt and sister Discharge planning not yet Plan for next visit to progress with gait and strengthening exercises documented in this encounter Plan of Treatment [...] home health visit Disciplines: SN, PT, OT, AIRCRAFT DESIGN ENGINEER, TIME CLOCK INSPECTOR, Skilled Disciplines Monitor patient's vital signs every [...] visit during episode of care Description: Home rectangular tank cooper to measure vital signs during every home [...] use of safety precautions Completed instructed to have supervision with gait activities Instruct on pain management techniques Description: Instruct in pharmacologic and nonpharmacologic pain management techniques. Problem:Pain Goal:Report that pain has been reduced or controlled Completed pt takes pain meds as prescribed Skilled assessment wound Description: Keep wound #1 clean and dry for 5 days. May take a shower on the 5th day.To perform PRN dressing changes thereafter. Problem:Wound Care Goal:Progression towards healing Completed Home Exercise Program (HEP) Description: Instruct patient/caregiver and perform HEP. Problem:PT Orthopedic-Total Joint Replacement Completed while the pt was supine reviewed HEP verbally with pt and sister since pt had done the exercises prior to therapy arrival reviewed sheet and pt and sister state understanding of anklepumping, quad sets, heelslides, hip abd/add, saqs and glut sets report no questions that are doing 3 times a day will progress to standing exercises next visit Gait/Stair Training Description: Instruct patient/caregiver and perform gait/stair training. Problem:PT Orthopedic-Total Joint Replacement Completed gait for 50 ft x 2 over level surfaces with wheeled walker and CGA exhibits slight decrease in stance on the left, sob with gait activities pt does lean heavily on walker Bed Mobility/Transfer Training Description: Instruct patient/caregiver and perform bed mobility/transfer training. Problem:PT Orthopedic-Total Joint Replacement Completed sit to from stand from recliner depending on ues to push herself up bed transfers pt has a small platform step and she steps up then sitting on the bed and requires min asst to lift legs into the bed supine to sit with CGA Therapeutic Exercise Description: Perform therapeutic exercise, progressing as tolerated. Problem:PT Orthopedic-Total Joint Replacement Completed see HEP comments documented in this encounter Care Teams Diesel Technician Mechanic Relationship Specialty Start Date End Date Pepper Morgan MD PCP - General 09/16/16 Hank Garibay MD [address] [facility] [address] [facility] [address] [place] [address] Surgeon Orthopedic Surgery 03/27/17 Jacky Murry MD [address] [facility] [address] [place] [address] Ophthalmology 03/27/17 Puma Mckenzie MD [address] [facility] [address] [place] [address] Surgeon Orthopedic Surgery 07/11/19 documented as of this encounter
--- OUTSIDE RECORDS SUMMARY | 2024-06-18 18:57 | XMS_ITS | Encounter Summary ---
Author Organization [facility] Address [address] [place] [address] Care Team Providers Care Egg Sorter Name Role Phone Pepper Morgan MD Primary Care Provider + [phone] Hank Garibay MD Unavailable [phone] Jacky Murry MD Unavailable [phone] Puma Mckenzie MD Unavailable [phone] Neha Jackson PT Unavailable Unavailable Encounter Details Date Type Department Care Team (Late st Contact Info) Description 11/08/2021 Telephone [facility] Orthopedics and Sports Medicine [address] [facility] [address] Mckenzie Collins MA Social History Tobacco Use Types Packs/Day [...] on file 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 Patient is going to dc iron. Her hip is doing great, incision looks good. She still has quite a bit of swelling, Mecca wrapped her leg with a luis antonio wrap, she is elevating, icing, still having back issues,but referral sent to pain management, 5/out of 10. Patient is taking two [place] at a time. Her BP islow today, 80/90, Mecca is contacting Dr. Morgan's office. Thank you * Telephone Encounter - Kathie Cox PA - 11/09/2021 8:09 AM CDT It appears patient went to the ED last night. Getting an US this morning to rule out DVT, however, appears to be related to her back/radiculopathy/sciatica per the ED note. Please see Susy's previous messages about referral to Dr. Johnson's office. Thanks. * Telephone Encounter - Mckenzie Collins MA - 11/08/2021 4:05 PM CDT Notified patient, she is awaiting call from Dr. Morgan. States her back is also bothering her, sheis unsure what to do with this. She states she cannot sit very long, due to the pain. * Telephone Encounter - Kathie Cox PA - 11/08/2021 12:20 PM CDT Yes, please have her reach out to Dr. Morgan's office regarding this. Recommend LUIS ANTONIO wraps for her lower legs if she cannot tolerate the azar hose right now. Continue aggressive ice and elevation. * Telephone Encounter - Mckenzie Collins MA - 11/08/2021 10:38 AM CDT Patient is calling, she had LT ASHLEE on 11/01/21. She states she is on lasix, but she is retaining fluid. She states she has gained 12 pounds since the day of surgery. She states she had to take her TedHose off, they were cutting her circulation off. She is using her ice machine, elevating, taking all medications as prescribed. No calf tenderness, pain, tingling, numbness. She has been doing her HEP. She states she has congestive heart failure. Idid advise to call Dr. Morgan's office as well. Please advise. [phone] documented in this encounter Plan of Treatment [...] on filedocumented in this encounter Care Teams Egg Sorter Relationship Specialty Start Date End Date Pepper Morgan MD PCP - General 09/16/16 Hank Garibay MD [address] [facility] [facility] [place] [address] Surgeon Orthopedic Surgery 03/27/17 Jacky Murry MD [address] [facility] [facility] [address] [place] [address] Ophthalmology 03/27/17 Puma Mckenzie MD [address] [facility] [facility] [address] [place] [address] Surgeon Orthopedic Surgery 07/11/19 Neha Jackson, KEVIN Physical Therapist Physical Therapy 12/01/21 documented as of this encounter
--- OUTSIDE RECORDS SUMMARY | 2024-06-18 18:57 | XMS_ITS | Encounter Summary ---
Author Organization [facility] Address [address] [place] [address] Phone Care Team Providers Care Tiller Man Name Role Phone Pepper Morgan MD Primary Care Provider + [phone] Hank Garibay MD Unavailable [phone] Jacky Murry MD Unavailable [phone] Puma Mckenzie MD Unavailable [phone] Reason for Visit * Auth/Cert Specialty Diagnoses / Procedures Referred By Contac t Referred To Contact Referral ID Status Reason Start Date Expiration Date Visits Re quested Visits Authorized [id number] 1 1 Encounter Details Date Type Department Care Team (Late st Contact Info) Description 11/10/2021 Home Care Visit [facility] Home Health [address] [place] [address] Mecca Ayala PTA TELEPHONE ENCOUNTER Social History [...] on file 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 Gender Identity Not on file Sexual Orientation Not on file Occupation Industry Job Start Date Job End Date retired Not on file Not on file Not on file documented as of this encounter Plan of Treatment Not on file documented as of this encounter Visit Diagnoses Not on filedocumented in this encounter Care Teams Tiller Man Relationship Specialty Start Date End Date Pepper Morgan MD PCP - General 09/16/16 Hank Garibay MD [address] [facility] [address] [place] [address] Surgeon Orthopedic Surgery 03/27/17 Jacky Murry MD [address] [place] [address] [address] [place] [address] Ophthalmology 03/27/17 Puma Mckenzie MD [address] [place] [address] [address] [place] [address] Surgeon Orthopedic Surgery 07/11/19 documented as of this encounter
--- OUTSIDE RECORDS SUMMARY | 2024-06-18 18:57 | XMS_ITS | Encounter Summary ---
Author Organization [facility] Address [address] [place] [address] Care Team Providers Care Digital Content Producer Name Role Phone Pepper Morgan MD Primary Care Provider + [phone] Hank Garibay MD Unavailable [phone] Jacky Murry MD Unavailable [phone] Puma Mckenzie MD Unavailable [phone] Encounter Details Date Type Department Care Team (Late st Contact Info) Description 11/18/[address] 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 Mecca understood. * Telephone Encounter - Kathie Cox PA - 11/18/2021 11:21 AM CDT I would advise that she take some benadryl for this and continue with ice, elevation, and wrapping of her foot and lower leg to avoid swelling. Uncertain as to what it would be from but could be fromthe prep from surgery but would have expected this to show up sooner than 2 weeks out if it was from the prep. She is not on anything from our office that would cause this based on her allergies. I would advise she reach to her PCP regarding this as well. Thanks. * Telephone Encounter - Yenifer Alvarado - 11/18/2021 11:08 AM CDT Mecca with [facility] Home Health called stating pt has redness on top of left foot. Looks like a rash and pt has swelling. Started 2 days ago. Pt has been wearing a sling shoe. Mecca took a picture andput it on [employer]. Picture is in Media tab. Please advise. She can be reached at [phone]. documented in this encounter Plan of Treatment Not on file documented as of this encounter Visit Diagnoses Not on filedocumented in this encounter Care Teams Digital Content Producer Relationship Specialty Start Date End Date Pepper Morgan MD PCP - General 09/16/16 Hank Garibay MD [address] [facility] [address] [place] [address] Surgeon Orthopedic Surgery 03/27/17 Jacky Murry MD [address] [facility] [address] [place] [address] Ophthalmology 03/27/17 Puma Mckenzie MD [address] [facility] [address] [place] [address] Surgeon Orthopedic Surgery 07/11/19 documented as of this encounter
--- OUTSIDE RECORDS SUMMARY | 2024-06-18 18:57 | XMS_ITS | Encounter Summary ---
Author Organization [facility] Address [address] [place] [address] Phone Care Team Providers Care Clinical Study Manager Name Role Phone Pepper Morgan MD Primary Care Provider + [phone] Hank Garibay MD Unavailable [phone] Jacky Murry MD Unavailable [phone] Puma Mckenzie MD Unavailable [phone] Reason for Visit * Auth/Cert Specialty Diagnoses / Procedures Referred By Contac t Referred To Contact Referral ID Status Reason Start Date Expiration Date Visits Re quested Visits Authorized [id number] 1 1 Encounter Details Date Type Department Care Team (Late st Contact Info) Description 11/05/2021 Home Care Visit [facility] Home Health [address] [address] [address] [place] [address] Raquel Allen, PT TELEPHONE ENCOUNTER Social History Tobacco Use Types [...] on file 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 Gender Identity Not on file Sexual Orientation Not on file Occupation Industry Job Start Date Job End Date retired Not on file Not on file Not on file documented as of this encounter Plan of Treatment Not on file documented as of this encounter Visit Diagnoses Not on filedocumented in this encounter Care Teams Clinical Study Manager Relationship Specialty Start Date End Date Pepper Morgan MD PCP - General 09/16/16 Hank Garibay MD [address] [facility] [address] [facility] [address] [place] [address] Surgeon Orthopedic Surgery 03/27/17 Jacky Murry MD [address] [place] [address] [address] [place] [address] Ophthalmology 03/27/17 Puma Mckenzie MD [address] [place] [address] [address] [place] [address] Surgeon Orthopedic Surgery 07/11/19 documented as of this encounter
--- OUTSIDE RECORDS SUMMARY | 2024-06-18 18:57 | XMS_ITS | Encounter Summary ---
Author Organization [facility] Address [address] [facility] [address] [place] [address] Care Team Providers Care Mainframe Programmer Analyst Name Role Phone Pepper Morgan MD Primary Care Provider + [phone] Hank Garibay MD Unavailable [phone] Jacky Murry MD Unavailable [phone] Puma Mckenzie MD Unavailable [phone] Encounter Details Date Type Department Care Team (Late st Contact Info) Description 11/08/2021 Telephone [facility] [address] [place] [id number] Pepper Morgan MD [address] [place] [address] Social History Tobacco Use Types Packs/Day Years [...] on file 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 Morgan for patient to have a sick call and venous doppler. If no appt available then patient needs to go to ER. No available appts. Patient notified to go to ER and the need for a venous doppler. Patient voiced understanding and will have her daughter take her when she gets home. * Telephone Encounter - Katy Lopes RN - 11/08/2021 4:04 PM CDT Called patient regarding swelling. She said she has gained 12# since November 01. Had L hip surgery on November 01. L leg has increased swelling and is hard and shiny. No redness and is warm to touch. Denied any increased sob. Patient unable to keep compression stocking on because it was cutting into her circulation. Dr. Mckenzie's office was notified by her and they recommended an alberto wrap and to contact PCP. Taking lasix 40 mg daily and Spironolactone 12.5 mg daily. Please advise. * Telephone Encounter - Vickie Araujo - 11/08/2021 10:48 AM CDT Patient had hip surgery on November 01. She is not getting rid of her fluids. Her legs were so bad she had to take her azar hose off it was cutting the circulation off. She did call Dr Brown office but they wanted her to let us know also. Cbn: [phone] documented in this encounter Plan of Treatment Not on file documented as of this encounter Visit Diagnoses Not on filedocumented in this encounter Care Teams Mainframe Programmer Analyst Relationship Specialty Start Date End Date Pepper Morgan MD PCP - General 09/16/16 Hank Garibay MD [address] [facility] [address] [place] [address] Surgeon Orthopedic Surgery 03/27/17 Jacky Murry MD [address] [facility] [address] [place] [address] Ophthalmology 03/27/17 Puma Mckenzie MD [address] [facility] [address] [place] [address] Surgeon Orthopedic Surgery 07/11/19 documented as of this encounter
--- OUTSIDE RECORDS SUMMARY | 2024-06-18 18:57 | XMS_ITS | Encounter Summary ---
Author Organization [facility] Address [address] [place] [address] Phone Care Team Providers Care Tab Machine Operator Name Role Phone Pepper Morgan MD Primary Care Provider + [phone] Hank Garibay MD Unavailable [phone] Jacky Murry MD Unavailable [phone] Puma Mckenzie MD Unavailable [phone] Reason for Visit * Auth/Cert Specialty Diagnoses / Procedures Referred By Contac t Referred To Contact Referral ID Status Reason Start Date Expiration Date Visits Re quested Visits Authorized [id number] 1 1 Encounter Details Date Type Department Care Team (Late st Contact Info) Description 11/18/2021 Home Care Visit [facility] Home Health [address] [place] [address] Mecca Ayala PTA TELEPHONE ENCOUNTER Social History [...] on file 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 Gender Identity Not on file Sexual Orientation Not on file Occupation Industry Job Start Date Job End Date retired Not on file Not on file Not on file documented as of this encounter Plan of Treatment Not on file documented as of this encounter Visit Diagnoses Not on filedocumented in this encounter Care Teams Tab Machine Operator Relationship Specialty Start Date End Date Pepper Morgan MD PCP - General 09/16/16 Hank Garibay MD [address] [facility] [address] [place] [address] Surgeon Orthopedic Surgery 03/27/17 Jacky Murry MD [address] [place] [address] [address] [place] [address] Ophthalmology 03/27/17 Puma Mckenzie MD [address] [place] [address] [address] [place] [address] Surgeon Orthopedic Surgery 07/11/19 documented as of this encounter
--- OUTSIDE RECORDS SUMMARY | 2024-06-18 18:57 | XMS_ITS | Encounter Summary ---
Author Organization [facility] Address [address] [place] [address] Care Team Providers Care Field Contractor Name Role Phone Pepper Morgan MD Primary Care Provider [phone] Hank Garibay MD Unavailable [phone] Jacky Murry MD Unavailable [phone] Mary Mckenzie MD Unavailable [phone] Reason for Referral * Consultation (Routine) - Closed Specialty Diagnoses / Procedures Referred By Contac t Referred To Contact Physical Therapy Diagnoses Lumbar radiculopathy Mary Johnson MD Phone: tel: fax: [address] [address] Referral ID Status Reason Start Date Expiration Date V isits Requested Visits Authorized [id number] Closed Specialty Services Required 11/16/2021 12/16/2022 24 24 Question Answer PTRFR PT Evaluate and Treat Therapy options discussed with patient? Yes Location provided for therapy services is: Patient requested/Patient preferred Please select the performing region: [facility] [144] # of visits: 24 Comments Patient would like to add this to her home therapy program if possible that she is currently doing. Otherwise, she would like [place] location. * Consultation (Routine) - Closed Specialty Diagnoses / Procedures Referred By Contac t Referred To Contact Pain Management Diagnoses Sciatic nerve pain, unspecified laterality Mary Mckenzie MD Phone: tel: Mary Johnson MD [address] [place] [address] Phone: tel: fax: Referral ID Status Reason Start Date Expiration Date V isits Requested Visits Authorized [id number] Closed Specialty Services Required 11/05/2021 12/05/2022 1 1 Question Answer Please select the performing region: [facility] [144] To provider: MARY JOHNSON [[id number]] # of visits: 1 Comments Please schedule TOM per Dr. Mckenzie Reason for Visit * Reason Comments Initial Consult * Consultation (Routine) - Closed Specialty Diagnoses / Procedures Referred By Contac t Referred To Contact Pain Management Diagnoses Sciatic nerve pain, unspecified laterality Mary Mckenzie MD Phone: tel: Mary Johnson MD [address] [place] [address] Phone: tel: fax: Referral ID Status Reason Start Date Expiration Date V isits Requested Visits Authorized [id number] Closed Specialty Services Required 11/05/2021 12/05/2022 1 1 Encounter Details Date Type Department Care Team (Latest Contact Info) Description 11/16/2021 2:26 PM CDT - 11/16/2021 11:59 PM CDT Hospital Encounter [facility] [address] 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 Gender Identity Not on file Sexual Orientation Not on file Occupation Industry Job Start Date Job End Date retired Not on file Not on file Not on file documented as of this encounter Last Filed Vital Signs Vital Sign Reading Time Taken Comments Blood Pressure 116/63 11/16/2021 3:03 PM CDT Pulse 87 11/16/2021 3:03 PM CDT Temperature - - Respiratory Rate 21 11/16/2021 3:03 PM CDT Oxygen Saturation 99% 11/16/2021 3:03 PM CDT Inhaled Oxygen Concentration - - Weight - - Height - - Body Mass Index - - documented in this encounter Medications at Time of Discharge cholecalciferol (VITAMIN D-3) 2000 unit tablet Take 1 tablet (2,000 Units total) by mouth daily albuterol HFA (Proventil HFA) 90 mcg/actuation inhalerIndications: Cough Inhale 2 puffs every 6 (six) hours as needed for wheezing or shortness of breath 6.7 g 10/14/2021 05/10/20 apixaban (ELIQUIS) 5 mg tabletIndications:A trial fibrillation, [...] for pain 90 tablet 11/16/2021 12/23/19 22 HYDROcodone-acetami nophen (NORCO) 7.5-325 mg per tabletIndications:P ain [The details of the medication are not available because there are pending changes by a home health clinician.] 40 tablet 11/11/2021 11/20/19 22 metOLazone (ZAROXOLYN) 2.5 mg tabletIndications:L eft leg swelling [The details of the medication are not available because there are pending changes by a home health clinician.] 14 tablet 11/11/2021 11/24/19 22 naloxone (NARCAN) 4 mg/actuation spray,non-aerosolIn dications:Chronic [...] Refills Last Filled Start Date End Date cyclobenzaprine (FLEXERIL) 10 mg tablet Take 1 tablet (10 mg total) by mouth nightly as needed for muscle spasms 30 tablet 11/16/2021 2 HYDROcodone-acetam inophen (NORCO) 10-325 mg per tabletIndications: Pain Take 1 tablet by mouth every 4 (four) hours as needed for pain 90 tablet 11/16/2021 2 documented in this encounter Discharge Disposition Disposition Code Departure Means Destination Discharge to home or self care documented in this encounter Progress Notes * Mary Johnson MD - 11/16/2021 3:45 PM CDT Patient Name: Tess Benedict : 1935 Today's Date: 11/16/2021 PCP: Pepper Morgan MD Referring: Mary Mckenzie MD Chief Complaint Patient presents with ??? Initial Consult HPI Tess Benedict is a 85 y.o. year old female seen in consultation today for Mary Mckenzie MD. She presents with a Chief Complaint of bilateral low back pain her left is worse than her rightwith radiation down the left posterior thigh to her knee. She denies any right leg pain. Her pain began initially approximately 3 years ago when she fell. Her pain however has become much worse sincehaving a left total hip replacement. Initiating Events include initially she fell, however more recently it was following left total hip replacement. The pain is described as a constant dull ache with occasional sharp pain. It rates Currently 8/10 on the numeric pain scale. At Worst 10/10 Provocative maneuvers include standing, and walking., At Best 5/10 Alleviating maneuvers include rest, after taking [place] 15 mg and with changing position. She also states that the epidural for her recent lefthip surgery was ???difficult?? . With regard to additional symptoms the patient reports occasional left thigh Weakness, She denies any Numbness. However she reports occasional left thigh tingling. She denies bowel or bladder incontinence. She reports chronic pain associated Insomnia. Therapeutic modalities attempted to date include [place] 15/650 every 6 hours provides her relief, tramadol provided her no relief, ice provides relief, Aleve provides relief, Tylenol provides her no relief, and physical therapy provided her no relief. Pain Score: 8 Pain Location: Back (Lumbar) Pain Radiating Towards: bilateral posterior thighs Pain Descriptors: Aching Pain Frequency: Constant/continuous Pain Onset: Ongoing Clinical Progression: Gradually worsening Effect of Pain on Daily Activities: patient has some difficulty with housework Allergies Allergen Reactions ??? Celecoxib Anaphylaxis ??? [...] ??? DVT (deep venous thrombosis) (CMS/HCC) (HCC) 1976 upper left arm near elbow--- ??? [...] BARIATRIC SURGERY 1984 gastroplasty ??? BREAST BIOPSY 1994 Breast biopsy [...] The successful right hip replacement Dr. Mckenzie Social History Socioeconomic History ??? Marital status: [...] tablet HYDROcodone-acetaminophen (NORCO) 10-325 mg per tablet HYDROcodone-acetaminophen (NORCO) 7.5-325 mg per tablet metOLazone (ZAROXOLYN) 2.5 mg tablet naloxone [...] patient is not nervous/anxious. Physical Exam Vitals: 11/16/21 1503 BP: 116/63 BP Location: Right arm Patient Position: Sitting Pulse: 87 Resp: 21 SpO2: 99% There is no height or [...] normal. Gait is antalgic she uses a walker Toe Stand she is unable on her left, the right is reduced Heel Stand she is unable on her left, the right is reduced Low Back: Inspection is clean, dry, and intact, no lesions are noted, no bruising is noted, Palpation produces no pain Percussion produces no pain Lumbar Flexion 40 degrees produces concordant low back pain Extension 10 degrees produces concordant low back pain Right Lateral Flexion 20 degrees produces concordant low back pain Left Lateral Flexion 20 degrees produces concordant low back pain Lower Extremity: Motor bilaterally 5/5 equal and intact Sensory bilaterally equal and intact DTR's Patellar Right 0/4 Left 0/4 Achilles Right 0/4 Left 0/4 Straight leg Raise Right 60 degrees produces no pain DFF no change Left 40 degrees produces left knee pain DFF no change Gaenslen's Test Right negative produces no pain Left positive produces left hip pain FABERs Test Right negative produces no pain Left positive produces left hip pain Imaging: There is none of her lumbar spine Review of Data: Checked the [email or web address] OFFICE EXECUTIVE sheet and it was consistent with our meds. UDT results: A sample was not obtained. The patient has a prescription for intranasal Narcan for the management of opioid induced respiratory depression or excess sedation. I reviewed the [email or web address] Prescription Monitoring Program printout and it was consistent and appropriate. The patient denies the use of Tobacco The patient has a diagnosis of hypertension that is managed by her primary care physician. Assessment: Based on the history, and physical exam my impression is the patient has a primary diagnosis of lumbar radiculopathy, lumbago, insomnia secondary chronic pain, and long-term use of anticoagulant medication. I had an in-depth conversation with Ms. Benedict and I discussed the treatment options to include obtaining an MRI of her lumbar spine to evaluate her anatomy for potential pain generators, another treatment options to include an oral steroid Dosepak to hopefully reduce the inflammation associated with her pain, another option is to change her pain medication to [place] 10/325 and hopefully provide her greater relief, and the final option would be to provide her physical therapy directed towards her low back pain. Following our discussion of these options she declined an MRI of her lumbar spine stating that she does not wish to lay flat on her back. I explained to her that if the epidural for the surgery placement was ???difficult?? this would be a best option to evaluate for any potential pain generators caused by this. Despite this she declines the MRI. She also declines the oral steroids stating that they make her hyper. Our final consensus is that I will trial [place] 10/325 every 4 hours p.r.n. for pain, the total dose of hydrocodone would remain at 60 mg per day which she is receiving currently, and I will attempt to order physical therapy for her low back pain. She will follow-up in 2 weeks time for repeat evaluation. I also discussed the option of consultand a spine surgeon, however she declined this stating she does not wish to consider any further surgeries. Basically she wishes to continue with the hydrocodone of 60 mg per day and hope that her pain improves. She does agree to trialing Flexeril 10 mg 1 tablet p.o. q.h.s. to help with potential muscle spasms and her insomnia. I encouraged her to continue following up with Dr. Mckenzie with regard to the post operative period following her left total hip replacement. She denies any questions with regard to the above-mentioned plan. 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 Ambulatory referral to Pain Management Please schedule TOM per Dr. Mckenzie Standing Status: Standing Number of Occurrences: 1 Referral Priority: Routine Referral Type: Consultation Referral Reason: Specialty Services Required Referral Location: [facility] Referred to Provider: Mary Johnson MD Requested Specialty: Pain Management Number of Visits Requested: 1 ??? Ambulatory referral order to Physical Therapy - Patient would like to add this to her home therapy program if possible that she is currently doing.Otherwise, she would like [place] location. Standing Status: Future Standing Expiration Date: 11/16/2022 Referral Priority: Routine Referral Type: Consultation Referral Reason: Specialty Services Required Referral Location: [facility] Requested Specialty: Physical Therapy Number of Visits Requested: 24 I will change her [place] to 03/3251 tablet p.o. q.4 hours p.r.n. for pain, trial Flexeril 10 mg 1 tablet p.o. q.h.s., attempt to obtain physical therapy for her low back pain, and have her follow-up in 2 weeks time for a repeat evaluation. Objective of opioid based therapy is to allow her to continue her activities of daily living with less suffering. No follow-ups on file. Thank you for allowing me to participate in the care of this pleasant patient. 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 Sciatic nerve pain, unspecified laterality Lumbar radiculopathy Thoracic or lumbosacral neuritis or radiculitis, unspecified Insomnia secondary to chronic pain documented in this encounter Care Teams Field Contractor Relationship Specialty Start Date End Date Pepper Morgan MD PCP - General 09/16/16 Hank Garibay MD [address] [place] [address] Surgeon Orthopedic Surgery 03/27/17 Jacky Murry MD [address] [place] [address] Ophthalmology 03/27/17 Mary Mckenzie MD [address] [place] [address] [address] [place] [address] Surgeon Orthopedic Surgery 07/11/19 documented as of this encounter
--- OUTSIDE RECORDS SUMMARY | 2024-06-18 18:57 | XMS_ITS | Encounter Summary ---
Author Organization [facility] Address [address] [place] [address] Phone Care Team Providers Care Washroom Operator Name Role Phone Pepper Morgan MD Primary Care Provider + [phone] Hank Garibay MD Unavailable [phone] Jacky Murry MD Unavailable [phone] Puma Mckenzie MD Unavailable [phone] Reason for Visit * Reason Comments Hip Problem * Auth/Cert Specialty Diagnoses / Procedures Referred By Contac t Referred To Contact Referral ID Status Reason Start Date Expiration Date Visits Re quested Visits Authorized [id number] 1 1 Encounter Details Date Type Department Care Team (Late st Contact Info) Description 11/12/2021 11:30 AM CDT Home Care Visit [facility] Home Health [address] [address] [address] [place] [address] Mecca Ayala PTA PT HOME VISIT Social [...] on file 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 Gender Identity Not on file Sexual Orientation Not on file Occupation Industry Job Start Date Job End Date retired Not on file Not on file Not on file documented as of this encounter Last Filed Vital Signs Vital Sign Reading Time Taken Comments Blood Pressure 118/72 11/12/2021 12:15 PM CDT Pulse 77 11/12/2021 12:15 PM CDT Temperature 36 ??C (96.8 ??F) 11/12/2021 12:15 PM CDT Respiratory Rate 18 11/12/2021 12:15 PM CDT Oxygen Saturation 97% 11/12/2021 12:15 PM CDT Inhaled Oxygen Concentration - - Weight - - Height - - Body Mass Index - - documented in this encounter Miscellaneous Notes * Home Health Visit Narrative - Mecca Ayala PTA - 11/12/2021 11:33 AM CDT pt saw Dr. Ronda Morgan yesterday since Charlotte Morgan was not available and he changed meds Hydrocodone-acetaminophen 7.5 300 mg per tablet take 1=2 tablets by mouth every 6 hrs as needed for pain #[id number] dc hydrocodone-acetaminophen 5-325 mg per tablet on 11/11 added metolazone 2.5 mg tablet take 1 tablet by mouth daily take 30 minutes before furosemide #[id number] 11/11 stop ferrous sulfate 325 mg tablet stopped by Dr. Tristin Morgan stop ascorbic acid * Home Health Plan for Next Visit - Mecca Ayala PTA - 11/12/2021 11:30 AM CDT Reason for today's visit access wound, update HEP and work on transfers and gait Discuss plan of care with pt and her sister Discharge planning when goals met Plan for next visit to progress with standing strengthening documented in this encounter Plan of Treatment [...] home health visit Disciplines: SN, PT, OT, RESEARCH TECHNICIAN, PETAL SHAPER HAND, Skilled Disciplines Monitor patient's vital signs every [...] visit during episode of care Description: Home power reactor operator to measure vital signs during every home [...] concerns Goal:Demonstrate use of safety precautions Completed pt to use walker at all times Instruct on pain management techniques Description: Instruct in pharmacologic and nonpharmacologic pain management techniques. Problem:Pain Goal:Report that pain has been reduced or controlled Completed pt has change in pain meds and noted pts back pain 7-10 and does have appt next week on 01/16 with pain management Skilled assessment wound Description: Keep wound #1 clean and dry for 5 days. May take a shower on the 5th day.To perform PRN dressing changes thereafter. Problem:Wound Care Goal:Progression towards healing Completed Home Exercise Program (HEP) Description: Instruct patient/caregiver and perform HEP. Problem:PT Orthopedic-Total Joint Replacement Completed while the pt was supine assisted pt with heelslides, hip abd/add performed 10 reps of each 15 reps of anklepumping and quad sets holding for 3 seconds saqs x 10 reps holding 3 seconds each and glut sets pt instructed on performing laqs x 10 reps when sitting holding 3 seconds and standing heel toe raises x 5 reps, hip abd x 5 reps and hamstring curls x 5 reps pt depends heavily on counter to complete updated HEP sister present and assists pt with exercises Gait/Stair Training Description: Instruct patient/caregiver and perform gait/stair training. Problem:PT Orthopedic-Total Joint Replacement Completed gait with wheeled walker over level surfaces in the home for 50 ft x 1 and 40 ft x 1 WBAT on the left pt exhibits decreased stance on the left and decreased hip flexion with knee flexion SOB noted with gait O2 sats 94% Bed Mobility/Transfer Training Description: Instruct patient/caregiver and perform bed mobility/transfer training. Problem:PT Orthopedic-Total Joint Replacement Completed sit to from stand from recliner depending on ues to push herself up then sit to from supine with min asst to lift left leg pt does use gait belt to assist the left into bed pt has a small step at bedside that she steps up on in order to sit on bed Therapeutic Exercise Description: Perform therapeutic exercise, progressing as tolerated. Problem:PT Orthopedic-Total Joint Replacement Completed see HEP comments documented in this encounter Care Teams Washroom Operator Relationship Specialty Start Date End Date Pepper Morgan MD PCP - General 09/16/16 Hank Garibay MD [address] [facility] [address] [place] [address] Surgeon Orthopedic Surgery 03/27/17 Jacky Murry MD [address] [facility] [address] [place] [address] Ophthalmology 03/27/17 Puma Mckenzie MD [address] [facility] [address] [place] [address] Surgeon Orthopedic Surgery 07/11/19 documented as of this encounter
--- OUTSIDE RECORDS SUMMARY | 2024-06-18 18:57 | XMS_ITS | Encounter Summary ---
Author Organization [facility] Address [address] [place] [address] Care Team Providers Care Cap Lining Machine Operator Name Role Phone Pepper Morgan MD Primary Care Provider + [phone] Hank Garibay MD Unavailable [phone] Jacky Murry MD Unavailable [phone] Puma Mckenzie MD Unavailable [phone] Encounter Details Date Type Department Care Team (Late st Contact Info) Description 11/11/2021 Telephone [facility] Orthopedics and Sports Medicine [address] [facility] [address] [place] [address] Puma Mckenzie MD [address] [place] [address] [address] [place] [address] Social History Tobacco Use Types [...] on file 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 * Telephone Encounter - Mckenzie Collins MA - 11/11/2021 4:11 PM CDT I called Dr. Johnson's office, didn't know Valerie had already called. I spoke to September, explained situation with patient, patient has appointment on 11/16/[address] Johnson at 3:00 p.m. Patient notified. Thank you * Telephone Encounter - Valerie Braswell MA - 11/11/2021 3:[address] johnsons office and they cannot get her in any sooner, they are putting her on their list to call if anybody cancels. * Telephone Encounter - Susy Hummel PA - 11/11/2021 2:38 PM CDT Could we please contact Dr. Johnson's office and expedite her referral? It looks like it was sent on 11/05, but her appointment isn't until the end of November and I'd like to get her in TOM. * Telephone Encounter - Susan Larsen - 11/11/2021 12:37 PM CDT Home Health Care Nurse-Isabella@ [phone] left message to report that patient is experiencing painlevel of 8 in left leg. Isabella stated DVT test showed negative for a blood clot. Isabella stated patient is taking 2 [place] every 4 hours for pain and will need a refill by the weekend. Patient is experiencing constipation. Isabella-Home Health stated that pain is more in the back and patient has been sleeping in a recliner for comfort. Isabella would like a call back @ [phone] documented in this encounter Plan of Treatment Not on file documented as of this encounter Visit Diagnoses Not on filedocumented in this encounter Care Teams Cap Lining Machine Operator Relationship Specialty Start Date End Date Pepper Morgan MD PCP - General 09/16/16 Hank Garibay MD [address] [facility] [address] [address] [place] [address] Surgeon Orthopedic Surgery 03/27/17 Jacky Murry MD [address] [facility] [address] [place] [address] Ophthalmology 03/27/17 Puma Mckenzie MD [address] [facility] [address] [place] [address] Surgeon Orthopedic Surgery 07/11/19 documented as of this encounter
--- OUTSIDE RECORDS SUMMARY | 2024-06-18 18:57 | XMS_ITS | Encounter Summary ---
Author Organization [facility] Home Care [facility] es Address [address] [place] [address] Phone Care Team Providers Care Surgical Assistant Name Role Phone Pepper Morgan MD Primary Care Provider + [phone] Hank Garibay MD Unavailable [phone] Jacky Murry MD Unavailable [phone] Puma Mckenzie MD Unavailable [phone] Reason for Visit * Auth/Cert Specialty Diagnoses / Procedures Referred By Contac t Referred To Contact Referral ID Status Reason Start Date Expiration Date Visits Re quested Visits Authorized [id number] 1 1 Encounter Details Date Type Department Care Team (Late st Contact Info) Description 11/17/2021 Home Care Visit [facility] Home Health [address] [address] [address] [place] [address] Aurelia Marie RN TELEPHONE ENCOUNTER Social History Tobacco Use Types [...] file 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 Gender Identity Not on file Sexual Orientation Not on file Occupation Industry Job Start Date Job End Date retired Not on file Not on file Not on file documented as of this encounter Plan of Treatment Not on file documented as of this encounter Visit Diagnoses Not on filedocumented in this encounter Care Teams Surgical Assistant Relationship Specialty Start Date End Date Pepper Morgan MD PCP - General 09/16/16 Hank Garibay MD [address] [address] [place] [facility] [address] [place] [address] Surgeon Orthopedic Surgery 03/27/17 Jacky Murry MD [address] [place] [address] [address] [place] [facility] [address] [place] [address] Ophthalmology 03/27/17 Puma Mckenzie MD [address] [place] [address] [address] [place] [facility] [address] [place] [address] Surgeon Orthopedic Surgery 07/11/19 documented as of this encounter
--- OUTSIDE RECORDS SUMMARY | 2024-06-18 18:57 | XMS_ITS | Encounter Summary ---
Author Organization [facility] Address [address] [place] [address] Phone Care Team Providers Care Floor Installer Name Role Phone Pepper Morgan MD Primary Care Provider + [phone] Hank Garibay MD Unavailable [phone] Jacky Murry MD Unavailable [phone] Puma Mckenzie MD Unavailable [phone] Reason for Visit * Reason Comments Post-op * Auth/Cert Specialty Diagnoses / Procedures Referred By Contac t Referred To Contact Referral ID Status Reason Start Date Expiration Date Visits Re quested Visits Authorized [id number] 1 1 Encounter Details Date Type Department Care Team (Latest Contact Info) Description 11/05/2021 10:30 AM CDT Home Care Visit [facility] Home [facility] - [place] [address] [facility] [address] [place] [address] Raquel Allen, PT PT INITIAL EVALUATION Social History Tobacco Use Types Packs/Day Years [...] on file 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 Gender Identity Not on file Sexual Orientation Not on file Occupation Industry Job Start Date Job End Date retired Not on file Not on file Not on file documented as of this encounter Last Filed Vital Signs Vital Sign Reading Time Taken Comments Blood Pressure 140/70 11/05/2021 12:00 AM CDT Pulse 65 11/05/2021 12:00 AM CDT Temperature 35.6 ??C (96.1 ??F) 11/05/2021 12:00 AM C DT Respiratory Rate 18 11/05/2021 12:00 AM CDT Oxygen Saturation 97% 11/05/2021 12:00 AM CDT Inhaled Oxygen Concentration - - Weight - - Height - - Body Mass Index - - documented in this encounter Miscellaneous Notes * Home Health Visit Narrative - Raquel Allen, PT - 11/05/2021 10:34 AM CDT Patient is referred to PT following a hospitalization from 11/01/2021 to 11/02/[address] Mckenzie. Patient's primary complaint on this date is severe pain last night with muscle cramping and/or sciatic nerve pain into L LE. PMH includes allergic rhinitis, arrhythmia, afib, basal cell carcinoma of nose 09/2008, CHF (congestive heart failure), cough, DVT 1976, fibrocystic breast, GERD, heel spur, h/o rheumatic fever, hernia, back pain, gastroplasty, HTN, h/o gout, malignant melanoma 2013, motion sickness, obesity, restless leg syndrome, R carpal tunnel syndrome, superficial basal cell carcinoma 2002, tobacco use x 35 years (quit in 1991), osteoarthritis, B TKA 2013 or 2014, R ASHLEE 2019; patient adds that she has ???Parkinson's?? but this was not found in EMR PLOF includes modified ind for transfers and gait with use of walker x 1 year. Patient was moderately active in the community and driving. Patient was shopping but primarily used an powered cart to complete. Patient to be seen 2-3wk2, eff 11/08/2021 to address pain/pain management, strengthening, transfer training, balance training, gait training and establishment and upgrade of HEP. documented in this encounter Plan of Treatment Not on file documented as of this encounter Visit Diagnoses Not on filedocumented in this encounter Home Health Visit - Care Plan Visit Details Visit Type -PT Initial Evalu ation Discipline -Physical Therapy Problems Problem Description Start Date Status Goals Interve ntions Homebound Status Disciplines: Skilled Disciplines Patient's homebound status 11/04/2021 Active 1 goal linked to scheduled/documen azar intervention 1 goal intervention scheduled/documen azar in this visit Monitor patient's vital signs every home health visit Disciplines: SN, PT, OT, FITNESS ATTENDANT, JEWELRY FINISHER, Skilled Disciplines Monitor patient's vital signs every home health visit. 11/04/2021 Active 1 goal linked to scheduled/documen azar intervention 1 goal intervention scheduled/documen azar in this visit Infection Prevention Disciplines: Skilled Disciplines Infection Prevention [...] PT Orthopedic-Total Joint Replacement Disciplines: Physical Therapy 11/05/2021 Active - 4 problem interventions scheduled/documen azar in this visit Goals Goal Associated Problem Outcome Goal Met? Visit Notes Patient receives care at the most appropriate care setting Description: Patient receives care at the most appropriate care setting. Homebound Status No Measure vital signs during every home health visit during episode of care Description: Home residency director to measure vital signs during every home health visit during episode of care. Monitor patient's vital signs every home health visit No Verbalize signs of infection Description: Patient/caregiver will demonstrate knowledge of infection prevention strategies by verbalizing signs and symptoms of infection. Infection Prevention No Demonstrate use of safety precautions Description: [...] health visit during episode of care Completed Aspects of Care Description: Instruct patient/caregiver on universal precautions and home infection control measures Problem:Infection Prevention Goal:Verbalize signs of infection Completed Assess safety Description: Assess patient safety Problem:Safety concerns Goal:Demonstrate use of safety precautions Completed Instruct Fall Prevention Description: Instruct patient/caregiver in methods to prevent falls Problem:Safety concerns Goal:Demonstrate use of safety precautions Scheduled Instruct on pain management techniques Description: Instruct in pharmacologic and nonpharmacologic pain management techniques. Problem:Pain Goal:Report that pain has been reduced or controlled Completed Home Exercise Program (HEP) Problem:PT Orthopedic-Total Joint Replacement Completed Gait/Stair Training Problem:PT Orthopedic-Total Joint Replacement Completed Bed Mobility/Transfer Training Problem:PT Orthopedic-Total Joint Replacement Completed Therapeutic Exercise Problem:PT Orthopedic-Total Joint Replacement Completed documented in this encounter Care Teams Floor Installer Relationship Specialty Start Date End Date Pepper oMrgan MD PCP - General 09/16/16 Hank Garibay MD [address] [place] [address] [place] [address] Surgeon Orthopedic Surgery 03/27/17 Jacky Murry MD [address] [facility] [address] [place] [facility] [address] [place] [address] Ophthalmology 03/27/17 Puma Mckenzie MD [address] [facility] [address] [place] [facility] [address] [place] [address] Surgeon Orthopedic Surgery 07/11/19 documented as of this encounter
--- OUTSIDE RECORDS SUMMARY | 2024-06-18 18:58 | XMS_ITS | Encounter Summary ---
Author Organization [facility] Address [address] [facility] [address] [place] [id number] Care Team Providers Care Studio Technician Name Role Phone Pepper Morgan MD Primary Care Provider + [phone] Hank Garibay MD Unavailable [phone] Jacky Murry MD Unavailable [phone] Puma Mckenzie MD Unavailable [phone] Reason for Visit * Reason Comments Hospital Follow Up Encounter Details Date Type Department Care Team (Late st Contact Info) Description 09/17/2021 10:40 AM CDT Office Visit [facility] [address] [place] [address] Pepper Morgan MD [address] [place] [address] Angioedema, subsequent encounter (Primary Dx); Hip arthritis; Spinal stenosis of lumbar region with neurogenic claudication; Cervical radiculopathy; 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; Preoperative evaluation of a medical condition to rule out surgical contraindications (TAR required) Social History Tobacco Use Types Packs/Day Years Used Date Smoking Tobacco: Former Cigarettes Q uit: 1991 Smokeless Tobacco: Never Alcohol Use Standard Drinks/Week Comments Not Currently 0 (1 standard drink = 0.6 oz pur e alcohol) AUDIT-C Answer Date Recorded Q1: How often do you have a drink containing alc ohol? 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 Gender Identity Not on file Sexual Orientation Not on file Occupation Industry Job Start Date Job End Date retired Not on file Not on file Not on file documented as of this encounter Last Filed Vital Signs Vital Sign Reading Time Taken Comments Blood Pressure 160/94 09/17/2021 11:06 AM CDT Pulse 72 09/17/2021 11:06 AM CDT Temperature 36.4 ??C (97.5 ??F) 09/17/2021 11:06 AM C DT Respiratory Rate 12 09/17/2021 11:06 AM CDT Oxygen Saturation 97% 09/17/2021 11:06 AM CDT Inhaled Oxygen Concentration - - Weight 86.2 kg (190 lb) 09/17/2021 11:06 AM CDT Height - - Body Mass Index 37.11 09/15/2021 1:42 PM CDT documented in this encounter Patient Instructions * Patient Instructions* Pepper Morgan MD - 09/17/2021 10:40 AM CDT Images from the original note were not included. ORDERS FOR AMS STAFF TO ARRANGE 1. No new orders before follow-up 2. Cancel the November office visit and reschedule for January when she is father out postop from hip replacement ORDERS FOR Tess Benedict TO ARRANGE 1. Immunization recommendations: 2. MEDICATION CHANGES Zyrtec 10 mg nightly to prevent the Carol, continue Claritin in the morning. Also remember to take the Zyrtec all way through the night before your upcoming hip replacement surgery Resume Filodipine = Plendil 5 mg daily for blood pressure For hip pain tramadol 25 mg 4 times daily with Tylenol ER 650 mg at each dosing to keep the pain under control Senna 1 tablet 4 times daily to move bowels while we increase the dose of the tramadol Continue 1 scoop of MiraLax daily while we arch using more tramadol Iron with vitamin-C pill every evening with water or orange juice to ensure absorption, continues up until the day of surgery and will not be needed any longer. Patient Care Team: [facility], Hank Mccauley MD as Surgeon (Orthopedic Surgery) Jacky Murry MD (Ophthalmology) Puma Mckenzie MD as Surgeon (Orthopedic Surgery) Return in about 4 months (around 01/25/2022) for Reschedule the November office visit for January with hipsurgery change. No orders of the defined types were placed in this encounter. A brief review of all your problems, medications, and orders from today ICD-9-CM ICD-10-CM 1. Angioedema, subsequent encounter V58.89 T78.3XXD cetirizine (ZyrTEC) 10 mg tablet 995.1 2. Hip arthritis 716.95 M16.10 traMADoL (ULTRAM) 50 mg tablet 3. Spinal stenosis of lumbar region with neurogenic claudication 724.03 M48.062 traMADoL (ULTRAM) 50 mg tablet 4. Cervical radiculopathy 723.4 M54.12 traMADoL (ULTRAM) 50 mg tablet 5. 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 401.1 I10 felodipine (PLENDIL) 5 mg 24 hr tablet 6. Preoperative evaluation of a medical condition to rule out surgical contraindications (TAR required) V72.83 Z01.818 For your records I have provided this [...] 03/13/2018, 03/19/2021 ??? Pfizer SARS-CoV-2 Vaccination (12+ yrs) PURPLE 08/15/2020, 09/06/2020, 03/14/2021 ??? Pneumococcal Conjugate PCV 13 02/18/2015 ??? Pneumococcal Polysaccharide PPV23 05/17/2002, 04/26/2016 ??? Tdap 05/18/2011, 08/23/2021 ??? ZOSTER Recombinant 12/02/2020, 02/23/2021 Primary Pharmacy/DME suppliers: [id number] - [place] - [address] AT [place] [address] [place] [address] PLEASE BRING IN ALL PILL BOTTLES TO EVERY OFFICE VISIT, THIS IS ESSENTIAL FOR ACCURATE REFILLS AND MAINTAINING AN ACCURATE MEDICATION LIST. PLEASE SIGN UP FOR [employer] so that you may have access to your labs and chart documentation IF YOU HAVE TROUBLE WITH THIS PROCESS CALL [phone] This is the I sent to Dr. Mckenzie Dear Dr. Mckenzie, I had the ability to evaluate our mutual patient Tess Benedict for her recent emergency room visit on day of hip replacement surgery when she developed angioedema. She typically takes Claritin every day to prevent this. She takes medication in the morning and suspend the medicine the day of theprocedure. She developed her typical angioedema off the medicine. In order to prevent her from having this problem again I have added Zyrtec 10 mg nightly, she will continue Claritin 10 mg in the morning. She should remaining angioedema free through the upcoming surgery. You will notice from her notes today that her blood pressure is elevated offer Filodipine. She willbe resuming that today She is medically cleared to have the hip replacement surgery with you scheduled for November 01 and she is appropriate to have the surgery done sooner if there is a cancellation. If you have any questions or concerns, please don't hesitate to call. Sincerely, Pepper Morgan MD documented in this encounter Ordered Prescriptions Prescription Sig Dispense Quantity Refills Last Filled Start Date End Date felodipine (PLENDIL) 5 mg 24 hr tabletIndications:B enign hypertension Take 1 tablet (5 mg total) by mouth daily 90 tablet 1 09/17/2021 2 traMADoL (ULTRAM) 50 mg tabletIndications:H ip arthritis,Spinal stenosis of lumbar region with neurogenic claudication,Cervic al radiculopathy Take 0.5 tablets (25 mg total) by mouth every 6 (six) hours as needed for pain 60 tablet 1 09/17/2021 2 cetirizine (ZyrTEC) 10 mg tabletIndications:A ngioedema, subsequent encounter Take 1 tablet (10 mg total) by mouth nightly 90 tablet 3 09/17/2021 3 documented in this encounter Progress Notes * Pepper Morgan MD - 09/17/2021 10:40 AM CDT Images from the original note were not included. ASSESSMENT AND PLAN Patient Instructions ORDERS FOR AMS STAFF TO ARRANGE 1. No new orders before follow-up 2. Cancel the November office visit and reschedule for January when she is father out postop from hip replacement ORDERS FOR Tess Chente Benedict TO ARRANGE 1. Immunization recommendations: 2. MEDICATION CHANGES Zyrtec 10 mg nightly to prevent the Carol, continue Claritin in the morning. Also remember to take the Zyrtec all way through the night before your upcoming hip replacement surgery Resume Filodipine = Plendil 5 mg daily for blood pressure For hip pain tramadol 25 mg 4 times daily with Tylenol ER 650 mg at each dosing to keep the pain under control Senna 1 tablet 4 times daily to move bowels while we increase the dose of the tramadol Continue 1 scoop of MiraLax daily while we arch using more tramadol Iron with vitamin-C pill every evening with water or orange juice to ensure absorption, continues up until the day of surgery and will not be needed any longer. Patient Care Team: Pepper Morgan MD as PCP - General [facility], Hank Mccauley MD as Surgeon (Orthopedic Surgery) Jacky Murry MD (Ophthalmology) Puma Mckenzie MD as Surgeon (Orthopedic Surgery) Return in about 4 months (around 01/25/2022) for Reschedule the November office visit for January with hipsurgery change. No orders of the defined types were placed in this encounter. A brief review of all your problems, medications, and orders from today ICD-9-CM ICD-10-CM 1. Angioedema, subsequent encounter V58.89 T78.3XXD cetirizine (ZyrTEC) 10 mg tablet 995.1 2. Hip arthritis 716.95 M16.10 traMADoL (ULTRAM) 50 mg tablet 3. Spinal stenosis of lumbar region with neurogenic claudication 724.03 M48.062 traMADoL (ULTRAM) 50 mg tablet 4. Cervical radiculopathy 723.4 M54.12 traMADoL (ULTRAM) 50 mg tablet 5. 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 401.1 I10 felodipine (PLENDIL) 5 mg 24 hr tablet 6. Preoperative evaluation of a medical condition to rule out surgical contraindications (TAR required) V72.83 Z01.818 For your records I have provided this [...] 03/13/2018, 03/19/2021 ??? Pfizer SARS-CoV-2 Vaccination (12+ yrs) PURPLE 08/15/2020, 09/06/2020, 03/14/2021 ??? Pneumococcal Conjugate PCV 13 02/18/2015 ??? Pneumococcal Polysaccharide PPV23 05/17/2002, 04/26/2016 ??? Tdap 05/18/2011, 08/23/2021 ??? ZOSTER Recombinant 12/02/2020, 02/23/2021 Primary Pharmacy/DME suppliers: [id number] - [place] - [facility] [address] AT [place] [address] [place] [address] PLEASE BRING IN ALL PILL BOTTLES TO EVERY OFFICE VISIT, THIS IS ESSENTIAL FOR ACCURATE REFILLS AND MAINTAINING AN ACCURATE MEDICATION LIST. PLEASE SIGN UP FOR [employer] [facility] so that you may have access to your labs and chart documentation IF YOU HAVE TROUBLE WITH THIS PROCESS CALL [phone] This is the I sent to Dr. Mckenzie Dear Dr. Mckenzie, I had the ability to evaluate our mutual patient Tess Benedict for her recent emergency room visit on day of hip replacement surgery when she developed angioedema. She typically takes Claritin every day to prevent this. She takes medication in the morning and suspend the medicine the day of theprocedure. She developed her typical angioedema off the medicine. In order to prevent her from having this problem again I have added Zyrtec 10 mg nightly, she will continue Claritin 10 mg in the morning. She should remaining angioedema free through the upcoming surgery. You will notice from her notes today that her blood pressure is elevated offer Filodipine. She willbe resuming that today She is medically cleared to have the hip replacement surgery with you scheduled for November 01 and she is appropriate to have the surgery done sooner if there is a cancellation. If you have any questions or concerns, please don't hesitate to call. Sincerely, Pepper Morgan MD CHIEF COMPLAINT Hospital Follow Up HISTORY OF PRESENT ILLNESS Tess Benedict returns for re-evaluation of recurrent angioedema that ended up cancelling her hip replacement surgery and required emergency room visit with epinephrine and Benadryl use Treatment of this problem also required a short review of care since our last visit, discussion of his chronic medical problems, and brown bag medication review with all medications brought to the office. Issues also discussed today included all new lab orders for the next follow-up visit, results of current lab work, and a review of active and discontinued medication prescriptions. ORDERS FROM LAST VISIT WITH ME 08/23/2021 1. Please have MA remove the designation and she is not taking Plendil = Filodipine 5 mg. She is resuming with Plendil today 2. Give her a blood pressure recording sheet ?? 3. She has a preoperative medical paper from Dr. Mckenzie that I signed, she needs to take the original we need a copy for epic scanning and for Marilee--please advise if were to fill this out or some other form? ORDERS FOR Tess Benedict TO ARRANGE ? 1. Immunization recommendations: Tdap at the pharmacy today ? 2. Medication changes Resume Filodipine = Plendil 5 mg daily for blood pressure ?? RHINITIS Give her a blood pressure recording sheet CARE FOR THE EAR CONGESTION WHICH IS EUSTACHIAN TUBE DYSFUNCTION Mucus relief 600 ER tab twice daily until the ears clear then as needed Resume sinus rinse every morning Consider Flonase 2 puffs every morning until the ears clear ?? DETAILS REGARDING THIS VISIT: Tess reports feeling improved today but in a lot of pain with her hip replacement canceled on Monday when she had the angioedema episode 1. Hip arthritis 2. Spinal stenosis of lumbar region with neurogenic claudication 3. Cervical radiculopathy Her pain is really bothering her from this hip and we will lower increase her Ultram, 25 mg usuallyworks and she will take 25 mg 4 times daily with Tylenol ER 650 mg at each dose. Noted to protect her GI tract she will increase the Senokot 1 tablet 4 times daily at each dose that she has tramadol she will take the senna. She will continue MiraLax 1 time daily. She will back down on the send if she has any diarrhea Anesthesia has been informed of her cervical spine problem and will be careful with her neck duringanesthesia for her upcoming surgery traMADoL (ULTRAM) 50 mg tablet; Take 0.5 tablets (25 mg total) by mouth every 6 (six) hours as needed for pain Dispense: 60 tablet; Refill: 1 4. Angioedema, subsequent encounter Long history of angioedema, I think she had a spell the morning of her surgery because she missed her morning medicine and it is necessary to prevent her angioedema. In order to prevent this from happening for follow-up scheduling on her hip replacement will planned as Zyrtec 10 mg nightly, continue the usual Claritin 10 mg every morning. She will have plenty of antihistamine on board to get through the surgery without difficulty and continue on antihistamines postop. She has already been tested for C1 esterase inhibitor and does not have that. She is on no medications that cause angioedema. And histamines are quite effective cetirizine (ZyrTEC) 10 mg tablet; Take 1 tablet (10 mg total) by mouth nightly Dispense: 90 tablet;Refill: 3 5. 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 Blood pressure much too high and responds very well to Filodipine. This is not in the class of medicine that cause angioedema and may be continued. Home blood pressure monitoring is encouraged and weneed the blood pressure down below 130/80 as our goal for her upcoming surgery. felodipine (PLENDIL) 5 mg 24 hr tablet; Take 1 tablet (5 mg total) by mouth daily Dispense: 90 tablet; Refill: 1 6. Preoperative medical clearance Letter sent to Dr. Mckenzie explaining what I think happened to her in how we are going to prevent for follow-up surgical date SOCIAL HISTORY Social History Tobacco Use ??? Smoking status: Former Smoker Quit date: 1991 Years since quittin.2 ??? Smokeless tobacco: Never Used Substance Use [...] and vaginal discharge. Musculoskeletal: Positive for arthralgias (Related to the advanced hip arthritis) and gait problem.Negative for joint swelling and myalgias. Skin: Negative for color change and rash. Neurological: Negative for dizziness, weakness and headaches. Hematological: Negative for adenopathy. Does not bruise/bleed easily. Psychiatric/Behavioral: Positive for dysphoric mood ( distraught about care plans for post Op now that she did not have her have replaced and will have to count on rescheduling family assistance). Negative for behavioral problems and sleep disturbance. The patient is not nervous/anxious. MEDICATIONS CHANGED / CLEANED UP THIS VISIT Medications Discontinued During This Encounter Medication Reason ??? traMADoL (ULTRAM) 50 mg tablet Reorder MEDICATION LIST AT CONCLUSION OF THIS VISIT Current Outpatient Medications Ordered in [facility] Medication Sig Dispense Refill ??? apixaban (ELIQUIS) 5 mg tablet Take 1 tablet (5 mg total) by mouth 2 (two) times a day 60 tablet 11 ??? biotin 10,000 mcg capsule Take by mouth ??? cetirizine (ZyrTEC) 10 mg tablet Take [...] packet (17 g total) by mouth daily ??? pramipexole (MIRAPEX) 0.125 mg tablet Take [...] mg Take 1 tablet by mouth daily 90 tablet 1 ??? spironolactone (Aldactone) 25 mg tablet Take 0.5 tablets (12.5 mg total) by mouth daily Take 1/2 tablet daily 50 tablet 1 ??? traMADoL (ULTRAM) 50 mg tablet Take 0.5 tablets (25 mg total) by mouth every 6 (six) hours as needed for pain 60 tablet 1 No current [facility]-ordered facility-administered medications on file. ALLERGIES is allergic to celecoxib, scopolamine, sulfa (sulfonamide antibiotics), amlodipine, lisinopril, trazodone, cymbalta [duloxetine], and sinemet [carbidopa-levodopa]. PHYSICAL EXAM body mass index is 37.11 kg/m??. Vitals: 09/17/21 1106 BP: 160/94 BP Location: Left arm Patient Position: Sitting Pulse: 72 Resp: 12 Temp: 36.4 ??C (97.5 ??F) TempSrc: Temporal SpO2: 97% Weight: 86.2 kg (190 lb) Physical Exam Vitals and nursing note [...] oropharyngeal exudate or posterior oropharyngeal erythema. Comments: No angioedema today, dentures fit well and her teeth in pharynx are completely clear Eyes: General: No scleral icterus. Extraocular Movements: Extraocular movements intact. Conjunctiva/sclera: Conjunctivae normal. Pupils: Pupils are equal, round, and reactive to light. Neck: Thyroid: No thyromegaly. Comments: Kyphosis of the upper thoracic spine and neck with diminished mobility but no tenderness through her normal range. There is no stridor and I hear no voice impairment Cardiovascular: Rate and Rhythm: Normal rate and regular rhythm. Heart sounds: Normal heart sounds. No murmur heard. No gallop. Comments: Blood pressure remains elevated through the entire visit even at the end at 170/92 requiring return to her usual Filodipine Pulmonary: Effort: Pulmonary effort is normal. Breath sounds: Normal breath sounds. No wheezing, rhonchi or rales. Abdominal: General: Bowel sounds are normal. There is no distension. Palpations: Abdomen is soft. There is no mass. Tenderness: There is no abdominal tenderness. Hernia: No hernia is present. Musculoskeletal: General: Tenderness and deformity present. Cervical back: Neck supple. Right lower leg: No edema. Left lower leg: No edema. Comments: He is in a great amount of pain with her hip arthritis discomfort Lymphadenopathy: Cervical: No cervical adenopathy. Skin: General: Skin is warm and dry. Findings: No erythema, lesion or rash. Comments: No dermatographia on the skin Neurological: General: No focal deficit present. Mental Status: She is alert and oriented to person, place, and time. Mental status is at baseline. Cranial Nerves: No cranial nerve deficit. Motor: No weakness or abnormal muscle tone. Coordination: Coordination normal. Gait: Gait abnormal. Psychiatric: Behavior: Behavior normal. Thought Content: Thought content normal. Judgment: Judgment normal. Comments: Very tearful and upset that she did not have her hip replacement done and afraid because she had this angioedema on the day of her expected hip replacement surgery Follow-up examination was completed today and specifics [...] REVIEWED WITH Tess Benedict TODAY Admission on 09/15/2021, Discharged on 09/16/2021 Component [...] ??? eGFR 08/19/2021 88 mL/min/1.73 m2 Final Lab on 08/16/2021 Component Date Value Ref Range Status ??? WBC 08/16/2021 6.5 3.8 - 9.9 K/cumm Final ??? Hgb 08/16/2021 13.9 11.9 - 15.5 g/dL Final ??? Hct 08/16/2021 45.5 35.6 - 45.5 % Final ??? Plt 08/16/2021 313 150 - 400 K/cumm Final ??? MPV 08/16/2021 9.6 9.1 - 12.3 fL Final ??? RBC 08/16/2021 5.11 3.90 - 5.20 M/cumm Final ??? MCV 08/16/2021 89.0 81.3 - 96.4 fL Final ??? MCH 08/16/2021 27.2 27.1 - 33.3 pg Final ??? MCHC 08/16/2021 30.5 (A) 32.3 - 35.7 g/dL Final ??? RDW CV 08/16/2021 13.8 11.1 - 14.9 % Final ??? RDW SD 08/16/2021 45.1 35.7 - 48.1 fL Final ??? NRBC abs 08/16/2021 0.00 0.00 - 0.01 K/cumm Final ? ? NT-proBNP 08/16/2021 2,345 (A) <=450 pg/mL Final ??? Sodium 08/16/2021 141 135 - 145 mmol/L Final ??? Potassium, pl 08/16/2021 5.5 (A) 3.3 - 4.9 mmol/L Final ??? Chloride 08/16/2021 103 97 - 110 mmol/L Final ??? CO2 08/16/2021 29 22 - 32 mmol/L Final ??? Anion gap 08/16/2021 9 2 - 15 mmol/L Final ??? BUN 08/16/2021 16 8 - 25 mg/dL Final ??? Creatinine 08/16/2021 0.99 0.60 - 1.10 mg/dL Final ??? Glucose 08/16/2021 90 70 - 199 mg/dL Final ??? Calcium 08/16/2021 9.3 8.5 - 10.3 mg/dL Final ??? Neutrophil abs 08/16/2021 4.6 1.7 - 6.5 K/cumm Final ??? Imm gran abs 08/16/2021 0.0 0.0 - 0.1 K/cumm Final ??? Lymphocyte abs 08/16/2021 1.0 0.8 - 3.3 K/cumm Final ??? Monocyte abs 08/16/2021 0.5 0.2 - 0.8 K/cumm Final ??? Eosinophil abs 08/16/2021 0.4 0.0 - 0.5 K/cumm Final ??? Basophil abs 08/16/2021 0.1 0.0 - 0.1 K/cumm Final ??? Neutrophil pct 08/16/2021 70.6 % Final ??? Imm gran pct 08/16/2021 0.5 % Final ??? Lymphocyte pct 08/16/2021 15.3 % Final ??? Monocyte pct 08/16/2021 7.1 % Final ??? Eosinophil pct 08/16/2021 5.7 % Final ??? Basophil pct 08/16/2021 0.8 % Final ??? eGFR 08/16/2021 57 mL/min/1.73 m2 Final Lab on 06/17/2021 Component Date Value Ref Range Status ??? Sodium 06/16/2021 138 135 - 145 mmol/L Final ??? Potassium, pl 06/16/2021 5.0 (A) 3.3 - 4.9 mmol/L Final ??? Chloride 06/16/2021 97 97 - 110 mmol/L Final ??? CO2 06/16/2021 30 22 - 32 mmol/L Final ??? Anion gap 06/16/2021 11 2 - 15 mmol/L Final ??? BUN 06/16/2021 18 8 - 25 mg/dL Final ??? Creatinine 06/16/2021 0.70 0.60 - 1.10 mg/dL Final ??? Glucose 06/16/2021 78 70 - 199 mg/dL Final ??? Calcium 06/16/2021 9.8 8.5 - 10.3 mg/dL Final ? ? NT-proBNP 06/16/2021 2,016 (A) <=450 pg/mL Final ??? eGFR 06/16/2021 86 mL/min/1.73 m2 Final Lab on 05/31/2021 Component Date Value Ref Range Status ??? WBC 05/31/2021 8.0 3.8 - 9.9 K/cumm Final ??? Hgb 05/31/2021 14.3 11.9 - 15.5 g/dL Final ??? Hct 05/31/2021 44.7 35.6 - 45.5 % Final ??? Plt 05/31/2021 339 150 - 400 K/cumm Final ??? MPV 05/31/2021 9.6 9.1 - 12.3 fL Final ??? RBC 05/31/2021 4.99 3.90 - 5.20 M/cumm Final ??? MCV 05/31/2021 89.6 81.3 - 96.4 fL Final ??? MCH 05/31/2021 28.7 27.1 - 33.3 pg Final ??? MCHC 05/31/2021 32.0 (A) 32.3 - 35.7 g/dL Final ??? RDW CV 05/31/2021 13.4 11.1 - 14.9 % Final ??? RDW SD 05/31/2021 44.4 35.7 - 48.1 fL Final ??? NRBC abs 05/31/2021 0.00 0.00 - 0.01 K/cumm Final ??? Sodium 05/31/2021 140 135 - 145 mmol/L Final ??? Potassium, pl 05/31/2021 5.4 (A) 3.3 - 4.9 mmol/L Final ??? Chloride 05/31/2021 102 97 - 110 mmol/L Final ??? CO2 05/31/2021 28 22 - 32 mmol/L Final ??? Anion gap 05/31/2021 10 2 - 15 mmol/L Final ??? BUN 05/31/2021 15 8 - 25 mg/dL Final ??? Creatinine 05/31/2021 0.64 0.60 - 1.10 mg/dL Final ??? Glucose 05/31/2021 105 70 - 199 mg/dL Final ??? Calcium 05/31/2021 9.6 8.5 - 10.3 mg/dL Final ? ? NT-proBNP 05/31/2021 1,611 (A) <=450 pg/mL Final ??? Neutrophil abs 05/31/2021 5.3 1.7 - 6.5 K/cumm Final ??? Imm gran abs 05/31/2021 0.0 0.0 - 0.1 K/cumm Final ??? Lymphocyte abs 05/31/2021 1.6 0.8 - 3.3 K/cumm Final ??? Monocyte abs 05/31/2021 0.6 0.2 - 0.8 K/cumm Final ??? Eosinophil abs 05/31/2021 0.4 0.0 - 0.5 K/cumm Final ??? Basophil abs 05/31/2021 0.1 0.0 - 0.1 K/cumm Final ??? Neutrophil pct 05/31/2021 65.7 % Final ??? Imm gran pct 05/31/2021 0.4 % Final ??? Lymphocyte pct 05/31/2021 20.2 % Final ??? Monocyte pct 05/31/2021 7.7 % Final ??? Eosinophil pct 05/31/2021 5.0 % Final ??? Basophil pct 05/31/2021 1.0 % Final ??? eGFR 05/31/2021 88 mL/min/1.73 m2 Final Lab on 05/24/2021 Component Date Value Ref Range Status ??? WBC 05/24/2021 8.2 3.8 - 9.9 K/cumm Final ??? Hgb 05/24/2021 13.8 11.9 - 15.5 g/dL Final ??? Hct 05/24/2021 45.9 (A) 35.6 - 45.5 % Final ??? Plt 05/24/2021 335 150 - 400 K/cumm Final ??? MPV 05/24/2021 9.5 9.1 - 12.3 fL Final ??? RBC 05/24/2021 4.93 3.90 - 5.20 M/cumm Final ??? MCV 05/24/2021 93.1 81.3 - 96.4 fL Final ??? MCH 05/24/2021 28.0 27.1 - 33.3 pg Final ??? MCHC 05/24/2021 30.1 (A) 32.3 - 35.7 g/dL Final ??? RDW CV 05/24/2021 13.5 11.1 - 14.9 % Final ??? RDW SD 05/24/2021 46.4 35.7 - 48.1 fL Final ??? NRBC abs 05/24/2021 0.00 0.00 - 0.01 K/cumm Final ??? Sodium 05/24/2021 139 135 - 145 mmol/L Final ??? Potassium, pl 05/24/2021 5.2 (A) 3.3 - 4.9 mmol/L Final ??? Chloride 05/24/2021 102 97 - 110 mmol/L Final ??? CO2 05/24/2021 28 22 - 32 mmol/L Final ??? Anion gap 05/24/2021 9 2 - 15 mmol/L Final ??? BUN 05/24/2021 15 8 - 25 mg/dL Final ??? Creatinine 05/24/2021 1.22 (A) 0.60 - 1.10 mg/dL Final ??? Glucose 05/24/2021 97 70 - 199 mg/dL Final ??? Calcium 05/24/2021 9.4 8.5 - 10.3 mg/dL Final ??? Bilirubin, total 05/24/2021 0.5 0.1 - 1.2 mg/dL Final ??? Protein, pl 05/24/2021 6.7 6.5 - 8.5 g/dL Final ??? Albumin 05/24/2021 3.8 3.5 - 5.0 g/dL Final ??? Alk phos 05/24/2021 118 40 - 130 Units/L Final ??? ALT 05/24/2021 14 7 - 45 Units/L Final ??? AST 05/24/2021 23 10 - 45 Units/L Final ? ? LDL Cholesterol, Direct 05/24/2021 107 <=129 mg/dL Final ??? Neutrophil abs 05/24/2021 5.8 1.7 - 6.5 K/cumm Final ??? Imm gran abs 05/24/2021 0.1 0.0 - 0.1 K/cumm Final ??? Lymphocyte abs 05/24/2021 1.3 0.8 - 3.3 K/cumm Final ??? Monocyte abs 05/24/2021 0.6 0.2 - 0.8 K/cumm Final ??? Eosinophil abs 05/24/2021 0.4 0.0 - 0.5 K/cumm Final ??? Basophil abs 05/24/2021 0.1 0.0 - 0.1 K/cumm Final ??? Neutrophil pct 05/24/2021 70.6 % Final ??? Imm gran pct 05/24/2021 0.7 % Final ??? Lymphocyte pct 05/24/2021 16.2 % Final ??? Monocyte pct 05/24/2021 7.1 % Final ??? Eosinophil pct 05/24/2021 4.8 % Final ??? Basophil pct 05/24/2021 0.6 % Final ??? eGFR 05/24/2021 41 mL/min/1.73 m2 Final Lab on 04/21/2021 Component Date Value Ref Range Status ? ? NT-proBNP 04/21/2021 1,905 (A) <=450 pg/mL Final Office Visit on 04/21/2021 Component Date Value Ref Range Status ??? COVID-19 Ag POC (BD Veritor) 04/21/2021 Presumptive Negative Presumptive Negative, Invalid Final There may be more visits with [...] therapy K59.03, T40.2X5A ??? Atrial fibrillation (CMS/HCC) (HCC) I48.91 ??? Left facial swelling R22.0 ??? Primary osteoarthritis of left hip M16.12 ??? Facial swelling R22.0 ??? Angio-edema T78.3XXA Pepper Morgan M.D. documented in this encounter Plan of Treatment Not on file documented as of this encounter Visit Diagnoses Diagnosis Angioedema, subsequent encounter- Primary Hip arthritis Unspecified arthropathy, pelvic region and thigh Spinal stenosis of lumbar region with neurogenic claudication Cervical radiculopathy Brachial neuritis or radiculitis nos 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 Essential hypertension, benign Preoperative evaluation of a medical condition to rule out surgical contraindications (TAR required) documented in this encounter Discontinued Medications Medication Sig Discontinue Reason Start Date End Da te traMADoL (ULTRAM) 50 mg tabletIndications:Hip arthritis,Spinal stenosis of lumbar region with neurogenic claudication,Cervical radiculopathy Take 0.5-1 tablets (25-50 mg total) by mouth 2 (two) times a day Reorder 08/23/2021 09/17/2021 documented as of this encounter Care Teams Studio Technician Relationship Specialty Start Date End Date Pepper Morgan MD PCP - General 09/16/16 Hank Garibay MD [address] [facility] [address] [place] [facility] [address] [place] [address] Surgeon Orthopedic Surgery 03/27/17 Jacky Murry MD [address] [place] [address] [address] [place] [facility] [address] [place] [address] Ophthalmology 03/27/17 Puma Mckenzie MD [address] [place] [address] [address] [place] [facility] [address] [place] [address] Surgeon Orthopedic Surgery 07/11/19 documented as of this encounter
--- OUTSIDE RECORDS SUMMARY | 2024-06-18 18:58 | XMS_ITS | Encounter Summary ---
Author Organization [facility] Address [address] [place] [address] Phone Care Team Providers Care Laboratory Chief Name Role Phone Pepper Morgan MD Primary Care Provider + [phone] Hank Garibay MD Unavailable [phone] Jacky Murry MD Unavailable [phone] Puma Mckenzie MD Unavailable [phone] Encounter Details Date Type Department Care Team (Late st Contact Info) Description 10/14/2021 Orders Only [facility] [address] [place] [address] Scanning, Provider Social History Tobacco Use Types Packs/Day Years [...] on file Legal Sex Female 4:33 AM [employer] Gender Identity Not on file Sexual Orientation Not on file Occupation Industry Job Start Date Job End Date retired Not on file Not on file Not on file documented as of this encounter Plan of Treatment Not on file documented as of this encounter Procedures Procedure Name Priority Date/Time Associated Diagnosis Comments SCAN - LABS 10/14/2021 documented in this encounter Results * SCAN - LABS (10/14/2021) us Provider Scanning Final Result documented in this encounter Visit Diagnoses Not on filedocumented in this encounter Additional Health Concerns Infection Onset Date Last Indicated Resolved Time COVID: Suspected 10/14/2021 10/14/2021 10/14/2021 1:53 PM CDT documented as of this encounter Care Teams Laboratory Chief Relationship Specialty Start Date End Date Pepper Morgan MD PCP - General 09/16/16 Hank Garibay MD [address] [facility] [address] [place] [facility] [address] [place] [address] Surgeon Orthopedic Surgery 03/27/17 Jacky Murry MD [address] [facility] [address] [place] [facility] [address] [place] [address] Ophthalmology 03/27/17 Puma Mckenzie MD [address] [facility] [address] [place] [address] [place] [address] Surgeon Orthopedic Surgery 07/11/19 documented as of this encounter
--- OUTSIDE RECORDS SUMMARY | 2024-06-18 18:58 | XMS_ITS | Encounter Summary ---
Author Organization [facility] Address [address] [place] [address] Care Team Providers Care Cloth Desizing Range Tender Name Role Phone Pepper Morgan MD Primary Care Provider + [phone] Hank Garibay MD Unavailable [phone] Jacky Murry MD Unavailable [phone] Puma Mckenzie MD Unavailable [phone] Encounter Details Date Type Department Care Team (Latest Contact Info) Description 11/01/2021 9:19 AM CDT - 11/03/2021 1:25 PM CDT Hospital Encounter [facility] [address] [place] [address] Puma Mckenize MD [address] [place] [address] [id number] Primary osteoarthritis of left hip Discharge Disposition: Discharge to home or self [...] on file 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 Gender Identity Not on file Sexual Orientation Not on file Occupation Industry Job Start Date Job End Date retired Not on file Not on file Not on file documented as of this encounter Last Filed Vital Signs Vital Sign Reading Time Taken Comments Blood Pressure 136/82 11/03/2021 11:11 AM CDT Pulse 97 11/03/2021 11:11 AM CDT Temperature 35.8 ??C (96.4 ??F) 11/03/2021 11:11 AM C DT Respiratory Rate 18 11/03/2021 11:11 AM CDT Oxygen Saturation 97% 11/03/2021 11:11 AM CDT Inhaled Oxygen Concentration - - Weight 84.6 kg (186 lb 8.2 oz) 11/01/2021 9:44 A M CDT Height 152.4 cm (5') 11/01/2021 9:44 AM CDT Body Mass Index 36.43 11/01/2021 9:44 AM CDT documented in this encounter Discharge Diagnoses Diagnosis Unilateral primary osteoarthritis, left hip - UNILATERAL PRIMARY OSTEOARTHRITIS, LEFT HIP Allergy status to sulfonamides - ALLERGY STATUS TO SULFONAMIDES Allergy status to other drugs, medicaments and biological substances - ALLERGY STATUS TO OTHER DRUGS, MEDICAMENTS AND BIOLOGICAL SUBSTANCES documented in this encounter Discharge Summaries * Susy Hummel PA - 11/02/2021 8:14 AM CDT Inpatient Discharge Summary BRIEF OVERVIEW Admitting Provider: Puma Mckenzie MD Discharge Provider: Puma Mckenzie MD Primary Care Physician at Discharge: Pepper Morgan MD [phone] Admission Date: 11/01/2021 Discharge Date: 11/02/2021 Primary Discharge Diagnosis: left hip osteoarthritis status post total hip arthroplasty Secondary Discharge Diagnosis: Principal Problem: Primary osteoarthritis of left hip Resolved Problems: No resolved hospital problems. DETAILS OF HOSPITAL STAY Presenting Problem/History of Present Illness: Primary osteoarthritis of left hip Hospital Course: Tess Benedict presented to the hospital and underwent a left total hip arthroplasty without anycomplications. She progressed well with physical therapy and met all objectives. Oral intake was tolerated well. Pain was well controlled with oral pain medication throughout the hospital stay. She was placed on Eliquis 5mg BID for DVT prophylaxis and discharged to home with daughter in stable condition. Test Results Pending at Discharge: Pending Labs Order Current Status Surgical pathology In process Operative Procedures Performed: Procedure(s): Left Total Hip Arthroplasty- Anterior Approach Discharge Details Physical Exam at Discharge: Discharge Condition: stable Pulse: 68 Resp: 20 BP: 135/81 Temp: 37 ??C (98.6 ??F) Weight: 84.6 kg (186 lb 8.2 oz) Discharge Disposition: Discharge to home or self care Discharge Instructions: Patient is continue with activity and weight-bearing as tolerated. Continue to keep the wound cleanand dry for 5 days. May shower on the 5th day. To perform p.r.n. dressing changes thereafter. Continue outpatient physical therapy. Discharge Medications: Your medication list START taking these medications ferrous sulfate 325 mg (65 mg of elemental iron) tablet Take 1 tablet (325 mg total) by mouth daily with breakfast Start taking on: November 03, 2021 HYDROcodone-acetaminophen 5-325 mg per tablet Take 1-2 tablets by mouth every 4 (four) hours as needed for pain Commonly known as: NORCO ondansetron ODT 4 mg disintegrating tablet Take 1 tablet (4 mg total) by mouth every 6 (six) hours as needed for nausea or vomiting Commonly known as: ZOFRAN-ODT CHANGE how you take these medications polyethylene glycol 17 gram packet Take 1 packet (17 g total) by mouth daily Commonly known as: MIRALAX What changed: when to take this reasons to take this senna-docusate 8.6-50 mg Take 1 tablet by mouth daily Commonly known as: Senna-S What changed: how much to take when to take this spironolactone 25 mg tablet Take 0.5 tablets (12.5 mg total) by mouth daily Take 1/2 tablet daily Commonly known as: Aldactone What changed: how much to take CONTINUE taking these medications albuterol HFA 90 mcg/actuation inhaler Inhale 2 puffs every 6 (six) hours as needed for wheezing or shortness of breath Commonly known as: Proventil HFA apixaban 5 mg tablet Take 1 tablet (5 mg total) by mouth 2 (two) times a day Commonly known as: ELIQUIS ascorbic acid 500 mg tablet,chewable Commonly known as: VITAMIN C cetirizine 10 mg tablet Take 1 tablet (10 mg total) by mouth nightly Commonly known as: ZyrTEC cholecalciferol 2000 unit tablet Commonly known as: VITAMIN D-3 felodipine 5 mg 24 hr tablet Take 1 tablet (5 mg total) by mouth daily Commonly known as: PLENDIL furosemide 40 mg tablet Take 1 tablet (40 mg total) by mouth daily Commonly known as: LASIX pantoprazole DR 20 mg EC tablet Take 1 tablet (20 mg total) by mouth daily With the largest meal Commonly known as: PROTONIX pramipexole 0.125 mg tablet Take 1 tablet (0.125 mg total) by mouth 3 (three) times a day Take at 9:00 a.m., 3:00 p.m., 9:00 p.m. Commonly known as: MIRAPEX propranoloL 20 mg tablet Take 1 tablet (20 mg total) by mouth 2 (two) times a day as needed (Tremor) Commonly known as: INDERAL STOP taking these medications traMADoL 50 mg tablet Commonly known as: ULTRAM Outpatient Follow-Up: Future Appointments Date Time Provider Department Center 11/18/2021 3:30 PM Kathie Cox PA [facility] Specialty 01/24/2022 10:20 AM Pepper Morgan MD [facility] PSA Cosigned by Puma Mckenzie MD at 11/02/2021 2:48 PM CDT documented in this encounter Discharge Instructions * Discharge Instructions* Jaylene Owens RN - 11/03/2021 10:41 AM CDT THANK YOU for choosing our team to provide your health care. Your HEALTH AND SAFETY are important to us. We hope you feel your care on [facility] was ALWAYS EXCELLENT! Please call [facility] at [phone] if you have any questions regarding your care. Wishing you continued improvement during your recovery. Your Surgical Care Unit Team Jaylene Lancaster, Estephanie, Yahaira, Kasia, Farnaz, Crissy, Cora, Laureen, Mignon, Chrystal Malone, Lili Banks, Crystal, Edel Shay, Jacey, Darcie, Corazon, Saadia. * Attachments The following attachments cannot be sent through Care Everywhere. * Iron Supplements (By mouth) (Danish) * Hydrocodone/Acetaminophen (By mouth) (Danish) * Laxative, Stimulant Combination (By mouth) (Danish) documented in this encounter Medications at Time [...] needed for pain 60 tablet 11/02/2021 2 ondansetron ODT (ZOFRAN-ODT) 4 mg disintegrating [...] Last Filled Start Date End Date ondansetron ODT (ZOFRAN-ODT) 4 mg disintegrating tabletIndications:na usea and vomiting Take 1 tablet (4 mg total) by mouth every 6 (six) hours as needed for nausea or vomiting 20 tablet 2 11/02/2021 2 HYDROcodone-acetamin ophen (NORCO) 5-325 mg per tabletIndications:Pa in Take 1-2 tablets by mouth every 4 (four) hours as needed for pain 60 tablet 11/02/2021 2 ferrous sulfate 325 mg (65 mg of elemental iron) tabletIndications:Ir on Deficiency Anemia,Anemia prevention Take 1 tablet (325 mg total) by mouth daily with breakfast 30 tablet 11/03/2021 2 documented in this encounter Discharge Disposition Disposition Code Departure Means Destination Discharge to home or self care documented in this encounter Progress Notes * Leah Hess, PRESCHOOL ADVISER - 11/03/2021 10:43 AM CDT Physical Therapy 11/03/21926 PT Last Visit Session Type Treatment Safe Environment Patient found sitting in Chair;Overbed Table within Reach;Call Light within Reach Pain Assessment Pain Assessment 0-10 Pain Score 2 Supine Supine-Exercises Left;Lower extremity Reps/Sets 10 Bed Mobility 1 Bed Mobility From 1 Edge of bed Bed Mobility Type 1 To Bed Mobility to 1 Supine Level of Assistance 1 Contact Guard Assist Bed Mobility Comments 1 assist rt le into bed Transfer 1 Transfer From 1 Bed;Wheelchair;Sit Transfer Type 1 To and from Transfer to 1 Stand Technique 1 Sit to stand;Stand to sit Transfer Device 1 Wheeled walker Transfer Level of Assistance 1 Standby Assist Ambulation 1 Distance (ft) 1 200' Device 1 Wheeled walker Assistance 1 Contact Guard Assist;Standby Assist Gait: Requires assist with 1 Maintaining balance Gait: Requires verbal cues to 1 Pace activity Stairs Stair Comments 4 steps with rails sba Assessment Prognosis Good Problem List Decreased strength;Decreased range of motion;Decreased mobility;Pain Plan Plan If this is the last note, consider this the discharge summary Recommendation/Plan PT Recommendation/Plan Home with family;Home with intermittent assist * AidaTong pike, OT - 11/03/2021 9:54 AM CDT Occupational Therapy 11/03/21 0905 General Session Type Treatment OT Received On 11/03/21 Safe Environment Arm Band Checked;Call Light within Reach;Notified RN;Patient found in Supine;Overbed Table within Reach Subjective Agreeable to Therapy Family/Caregiver Present Yes Precautions Precautions Hip: Anterior Weight Bearing Restrictions Yes LLE Weight Bearing WBAT Pain Assessment Pain Assessment 0-10 Pain Score 2 Pain Location Back (Lumbar) Pain Interventions Repositioned Balance Balance (patient demonstrates good sitting and standing balance with dressing and grooming tasks.) ADL ADLS (WDL) (Patient and her daughter educated in don/doff DORCAS hose and safety with DORCAS hose. Patient and her daughter were instructed in sequencing and technique with use of w/w when carrying items with light meal prep and homemaking tasks. Pt declined toileting) Grooming Grooming: Where assessed Standing at sink Grooming: Level of assistance Modified independent Grooming: Assistance with Increased time to complete;Standing with assistive device;Wash/dry hands;Wash/dry face;Denture care Bathing Bathing: Where assessed Standing Bathing: Level of assistance Standby Assist Bathing: Assistance with Right arm;Left arm;Chest;Right upper leg;Left upper leg;Perineal area;Buttocks;Safety;Sequencing UE Dressing UE Dressing: Where assessed Sitting;Edge of bed UE Dressing: Level of assistance Independent UE Dressing: Assistance with Thread RUE;Thread LUE;overhead foreman head;Pull down in back;Fasteners;Pull around back LE Dressing LE Dressing: Where assessed Standing;Sitting;Edge of bed LE Dressing: Level of assistance Contact Guard Assist LE Dressing: Assistance with Don/doff R sock;Don/doff L sock;Thread RLE into pants;Thread LLE into pants;Thread RLE into underwear;Thread LLE into underwear;Pull up over hips;Don/doff R shoe;Don/doffL shoe;Requires assistive device for steadying;Supervision/safety;Increased time to complete;Safety; Sequencing (slip on shoes) Bed Mobility 1 Bed Mobility From 1 Supine Bed Mobility Type 1 To Bed Mobility to 1 Edge of bed Level of Assistance 1 Contact Guard Assist Bed Mobility Comments 1 to RT as pt reports he gets up on RT side of bed at home. cues for progression of LT LE Transfer 1 Transfer From 1 Bed Transfer Type 1 To and from Transfer to 1 Stand;Wheelchair Technique 1 Sit to stand;Stand to sit Transfer Level of Assistance 1 Standby Assist (cues for safety and hand placement) Trials/Comments 1 increased time, functional mobility to stand at sink with grooming then back to bed for dressing and transfer to w/c Cognition Orientation Oriented X4 (person, place, time, situation) Activity Tolerance Activity Tolerance Comments rest breaks with activity Assessment Prognosis Excellent Problem List Decreased endurance;Decreased ADL independence;Decreased IADL independence Plan Plan Plan of care initiated;If this is the last note, consider this the discharge summary Recommendation/Plan OT Recommendation Home with intermittent assist OT Recommendation/Plan Comments patient's daughter states she plans to stay with patient for at least one week then will be available as needed OT Frequency 3-5x/wk Treatment/Interventions ADL/IADL retraining Progress Progressing toward goals * Susy Hummel PA - 11/03/2021 7:16 AM CDT Orthopedic Total Hip Progress Note Assessment/Plan Status post-left total hip arthroplasty: Doing well postoperatively. Slow progress with PT yesterday. SNF recommended so social service has been consulted. Will monitor progress today. Continues current post-op course. SNF vs home on discharge with daughter this afternoon. Pt is to continue on Eliquis 5mg BID for DVT prophylaxis and is to follow up two weeks following surgery for the initial postoperative appointment. Activity: up with assistance Weight Bearing: WBAT LOS: 1 day Subjective Post-Operative Day: 2 post-left total hip arthroplasty Systemic or Specific Complaints: No Complaints. Denies any chest pain, shortness of breath, nausea or vomiting. Pt is progressing slowly with physical therapy and is ambulating with the use of a wheeled walker. Pt reports mild pain, which is well controlled with prescribed oral narcotics. Objective Vital signs in last 24 hours: Temp: [36 ??C (96.8 ??F)-37.1 ??C (98.7 ??F)] 36.4 ??C (97.5 ??F) Pulse: [68-102] 102 Resp: [18-20] 18 BP: (110-149)/(67-99) 146/99 General: appears stated age and cooperative Neurovascular: NV intact Wound: Wound clean and dry no evidence of infection. Range of Motion: Limited due to postoperative state DVT Exam: No evidence of DVT seen on physical exam. Data Review CBC: Recent Labs Lab Units 11/03/21 0509 WBC K/cumm 11.0* RBC M/cumm 4.08 HEMOGLOBIN g/dL 11.4* HEMATOCRIT % 35.1* TEO Todd Date: 11/03/2021 Time: 7:16 AM Cosigned by Puma Mckenzie MD at 11/03/2021 7:42 AM CDT * Leah Hess, PRESCHOOL ADVISER - 11/02/2021 3:25 PM CDT Physical Therapy 11/02/21 1445 PT Last Visit Session Type Treatment Pain Assessment Pain Assessment 0-10 Pain Score 5 - Moderate pain Supine Supine-Exercises Left;Lower extremity Reps/Sets 10 Supine-Motion AAROM Bed Mobility 1 Bed Mobility From 1 Edge of bed Bed Mobility Type 1 To Bed Mobility to 1 Supine Level of Assistance 1 Moderate Assist Bed Mobility Comments 1 assist with bilat le into bed Transfer 1 Transfer From 1 Chair with arms;Sit Transfer Type 1 To and from Transfer to 1 Stand Technique 1 Sit to stand;Stand to sit Transfer Device 1 Wheeled walker Transfer Level of Assistance 1 Minimum Assist;Contact Guard Assist Ambulation 1 Distance (ft) 1 15' Device 1 Wheeled walker Assistance 1 Contact Guard Assist Gait: Requires assist with 1 Maintaining balance Gait: Requires verbal cues to 1 Utilize appropriate gait sequencing;Increase step length Quality of Gait 1 dec step length Ambulation Comments 1 vc's to bend knee with gait to advance lt leg Stairs Stair Comments unable to attempt steps Assessment Prognosis Fair Problem List Decreased strength;Decreased range of motion;Decreased mobility;Pain Plan Plan If this is the last note, consider this the discharge summary Recommendation/Plan PT Recommendation/Plan [facility] Facility * Mireya Irby, OT - 11/02/2021 9:21 AM CDT Occupational Therapy Initial Evaluation 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 CHF (congestive heart failure) ([facility]) ([facility]) Cough DVT (deep venous thrombosis) ([facility]) ([facility]) 1976 upper left arm near [...] 04/2002 Left foot pain 03/1999 ? gout Malignant melanoma ([facility]) ([facility]) Malignant melanoma; Comments: APO 01/13/2014 - Menopause Motion sickness Obesity PONV (postoperative nausea and vomiting) Restless leg Right carpal tunnel syndrome Superficial basal cell carcinoma 2002 Cancer, basal Cell Tobacco use 1-2ppd x 35yrs quit 11/02/21 0845 General Chart Reviewed Yes Session Type Evaluation Seen with PT for functional mobility training OT Received On 11/02/21 Subjective Agreeable to Therapy Additional Pertinent History Status post left ASHLEE on 11/01 Family/Caregiver Present No Occupational Therapy-Patient Goal To return home Precautions Precautions Fall risk;Hip: Anterior Weight Bearing Restrictions Yes LLE Weight Bearing WBAT Home Living Type of Home House Home Layout One level Home Access Stairs to enter with rails Entrance Stairs-Number of Steps 3 Bathroom Shower/Tub Walk-in shower with threshold Bathroom Toilet Raised Bathroom Equipment Built-in shower seat Home Mobility Equipment Wheeled walker;4-Wheeled walker;Single point cane Home ADL Equipment Briquette Molder Additional Comments Sister has a sockaid she can borrow. Basket for wheeled walker Prior Function Level of [place] Independent with ADLs;Independent functional transfers;Independent with ambulation Lives With Alone Receives Help From Family Driving Yes Prior Function Comments Daughter/sister will be available to assist patient Grooming Grooming: Where assessed Chair Grooming: Level of assistance Standby Assist Grooming: Assistance with Wash/dry hands LE Dressing LE Dressing: Where assessed Standing;Sitting;Chair LE Dressing: Level of assistance Moderate Assist LE Dressing: Assistance with Thread RLE into underwear;Thread LLE into underwear;Pull up over hips Toileting Toileting: Where assessed Bedside Commode Toileting: Level of assistance Standby Assist Toileting: Assistance with Anterior Pain Assessment Pain Assessment 0-10 Pain Score 5 - Moderate pain Pain Type Surgical pain Pain Location Hip Pain Orientation Left Cognition Overall Cognitive Status WFL Orientation Oriented X4 (person, place, time, situation) Hand Function Gross Grasp Functional Reach/Grasp RUE Reach WFL LUE Reach WFL Bed Mobility Bed Mobility No Bed Mobility 1 Bed Mobility Comments 1 Received patient on commode with PT Transfer 1 Transfer From 1 Commode-standard Transfer Type 1 To Transfer to 1 Stand Technique 1 Sit to stand Transfer Device 1 Wheeled walker Transfer Level of Assistance 1 Minimum Assist Trials/Comments 1 Room mobility using wheeled walker with Minimal Assist x 2, assist advancing leftlower extremity, verbal cueing for proper sequencing of functional mobility Transfers 2 Transfer From 2 Sit;Chair with arms Transfer Type 2 To and from Transfer to 2 Stand Technique 2 Sit to stand;Stand to sit Transfer Device 2 Wheeled walker Transfer Level of Assistance 2 Standby Assist Trials/Comments 2 Increased time/effort RUE Assessment RUE Assessment WF OT Treatment/Exercise Comments OT Treatment/Exercise Comments Left upper extremity atrophy due to previous melanoma treatment Assessment Prognosis Excellent Problem List Decreased functional mobility;Decreased ADL independence;Decreased ROM;Pain Plan Plan Plan of care initiated;If this is the last note, consider this the discharge summary Recommendation/Plan OT Recommendation [facility] Facility OT Frequency 3-5x/wk Monday-Monday, Sat. prn Treatment/Interventions ADL/IADL retraining;Functional mobility training;Functional transfer training OT Evaluation Complete Yes Multi-Disciplinary Problems (from Occupational Therapy) Active Problems Problem: Dressings Lower Extremities Start Date: 11/02/21 Goal Start Date Expected End Date End Date STG - Patient to complete lower body dressing 11/02/21 11/09/21 -- Goal Details: using adaptive equipment as indicated/trained with minimal assist Problem: Grooming Start Date: 11/02/21 Goal Start Date Expected End Date End Date STG - Patient will complete grooming 11/02/21 11/09/21 -- Goal Details: in stance with independence Problem: Toileting Start Date: 11/02/21 Goal Start Date Expected End Date End Date STG - Patient will complete toileting tasks with 11/02/21 11/09/21 -- Goal Details: independence Problem: Transfers Start Date: 11/02/21 Goal Start Date Expected End Date End Date STG - Patient will perform toilet transfer 11/02/21 11/09/21 -- Goal Details: with modified independence * Puma Alatorre, PT - 11/02/2021 9:17 AM CDT Physical Therapy 11/02/21822 General Chart Reviewed Yes Session Type Evaluation PT Received On 11/02/21 Safe Environment Arm Band Checked;Call Light within Reach;Notified RN;Patient found in Supine;Overbed Table within Reach Subjective Agreeable to Therapy Additional Pertinent History hx of bilat TKA and rt ASHLEE, Parkinsons Family/Caregiver Present No Physical Therapy-Patient Goal return home Precautions Precautions Hip: Anterior Weight Bearing Restrictions Yes LLE Weight Bearing WBAT Home Living Type of Home House Home Layout One level Home Access Stairs to enter with rails Entrance Stairs-Rails Left (grab bar on the rt) Entrance Stairs-Number of Steps 3 Home Mobility Equipment Wheeled walker;Single point cane;4-Wheeled walker;Other (Comment) (also has a 3ww, pt states that she uses her fww) Prior Function Level of [place] Independent with ADLs;Independent functional transfers;Independent with ambulation Lives With Alone Receives Help From Family Driving Yes Fall within the last 6 months Yes Fall within the last 6 months comment no reported injuries Pain Assessment Pain Assessment 0-10 Pain Score 6 Pain Type Chronic pain Pain Location Back (Lumbar) (from L/S stenosis) Pain Orientation Right Pain Interventions Medication (See MAR) Cognition Overall Cognitive Status WFL Orientation Oriented X4 (person, place, time, situation) Compliance/Behavior Easy to engage Balance Balance Yes Static Sitting Balance Static Sitting-Balance Support Bilateral upper extremity supported;Feet supported Static Sitting-Sitting Surface Bed Static Sitting-Level of Assistance Contact guard Static Standing Balance Static Standing-Balance Support Bilateral upper extremity supported Static Standing-Standing Surface Floor Static Standing-Level of Assistance Minimum assistance Bed Mobility 1 Bed Mobility From 1 Supine Bed Mobility Type 1 To Bed Mobility to 1 Edge of bed Level of Assistance 1 Moderate Assist Bed Mobility Comments 1 inc time Transfer 1 Transfer From 1 Bed;Sit (bed elevated) Transfer Type 1 To and from Transfer to 1 Stand Technique 1 Sit to stand;Stand to sit Transfer Device 1 Wheeled walker Transfer Level of Assistance 1 Moderate Assist Trials/Comments 1 dec wb through the LLE Ambulation 1 Distance (ft) 1 10' Surface 1 Level tile Device 1 Wheeled walker Assistance 1 Moderate Assist (mod to mod+) Gait: Requires assist with 1 Maintaining balance;Advancing impaired lower extremity;Weight shifting;Maintaining hip extension Gait: Requires verbal cues to 1 Use assistive device safely;Utilize appropriate gait sequencing (try to bend the lt knee to advance) Quality of Gait 1 (S) dec step length and david, assist to advance the lt LE, VC to bend the lt knee w gt to increase swing, dec ability to wb through the LLE Ambulation Comments 1 fall risk RLE Assessment RLE Assessment WFL LLE Assessment LLE Assessment (S) X (hip NT, knee arom limited r/t the hip, mod pain w movement of the lt knee and hip, r/t surgery yesterday, L ASHLEE, also r/t chronic L/S stenosis) PT Treatment/Exercise Comments PT Treatment/Exercise Comments (S) explained the hep to the pt, only performed ankle pumps, quad/glut sets, will go through the entire hep this afternoon w her second treatment. Pt was in pain after getting her up to walk Basic Mobility - 6 Click How much difficulty does the patient have: Turning over in bed 2 How much difficulty does the patient currently have: Sitting down and standing up from a chair witharms? 2 How much difficulty does the patient have: Moving from lying on back to sitting on the side of the bed? 2 How much difficulty does the patient have: Moving to and from a bed to a chair including wheelchair? 2 How much help does the patient currently need: Walk in hospital room? 2 How much help from another person does the patient currently need: Climbing 3-5 steps with a railing? 1 Total 6 Click Score (range 6-24) 11 Score Interpretation 30.25 Assessment Prognosis Good Problem List Gait deviations;Decreased strength;Decreased range of motion;Impaired balance;Decreased mobility;Pain Barriers to Discharge Current Mobility Status Plan Plan Plan of care initiated;If this is the last note, consider this the discharge summary Recommendation/Plan PT Recommendation/Plan [facility] Facility PT Recommendation/Plan Comments pt has significant decreased mobility and assist required. Pt also has a hx of L/S stenosis. Pt does have a sister who lives next door that can help her but she is older than the pt. Pt states that her dtr can help. PT Frequency Daily;Twice a day Treatment/Interventions Bed mobility;Functional transfer training;Gait training;Stair training;Therapeutic exercise PT Equipment Recommended None PT Evaluation Complete Yes Multi-Disciplinary Problems (from Physical Therapy) Active Problems Problem: PT [facility] Start Date: 11/02/21 Goal Start Date Expected End Date End Date PT [facility] 1 11/02/21 11/09/21 -- Goal Details: Pt to require/be min assist with bed mobility consistently to increase functional mobility. Goal Start Date Expected End Date End Date PT [facility] 2 11/02/21 11/09/21 -- Goal Details: Pt to require/be min assist with all transfers consistently to increase functional mobility and safety. Goal Start Date Expected End Date End Date PT [facility] 3 11/02/21 11/09/21 -- Goal Details: Pt to ambulate mod>min assist 50' with a fww consistently, to increase functional mobility and safety. Goal Start Date Expected End Date End Date PT [facility] 4 11/02/21 11/09/21 -- Goal Details: Pt to ascend/descend 3 steps min to mod assist, with the use of 1 handrail/s, consistently to increase functional independence and safety in order to return home. * Susy Hummel PA - 11/02/2021 8:09 AM CDT Orthopedic Total Hip Progress Note Assessment/Plan Status post-left total hip arthroplasty: Doing well postoperatively. Complaining of back pain, likely due to laying on her back all night. She is hoping to get up with PT soon and sit in the chair for a while. Continues current post-op course. Home on discharge with daughter this afternoon. Pt is to continueon Eliquis 5mg BID for DVT prophylaxis and is to follow up two weeks following surgery for the initial postoperative appointment. Activity: up with assistance Weight Bearing: WBAT LOS: 0 days Subjective Post-Operative Day: 1 post-left total hip arthroplasty Systemic or Specific Complaints: No Complaints. Denies any chest pain, shortness of breath, nausea or vomiting. Pt is progressing well with physical therapy and is ambulating with the use of a wheeled walker. Pt reports mild pain, which is well controlled with prescribed oral narcotics. Objective Vital signs in last 24 hours: Temp: [35.6 ??C (96.1 ??F)-37 ??C (98.6 ??F)] 37 ??C (98.6 ??F) Pulse: [55-104] 67 Resp: [14-28] 20 BP: (111-152)/(55-94) 133/76 General: appears stated age and cooperative Neurovascular: NV intact Wound: Wound clean and dry no evidence of infection. Range of Motion: Limited due to postoperative state DVT Exam: No evidence of DVT seen on physical exam. Data Review CBC: Recent Labs Lab Units 11/02/21 0648 WBC K/cumm 13.8* RBC M/cumm 4.34 HEMOGLOBIN g/dL 11.9 HEMATOCRIT % 37.5 TEO Todd Date: 11/02/2021 Time: 8:09 AM Cosigned by Puma Mckenzie MD at 11/02/2021 2:51 PM CDT documented in this encounter H&P Notes * Puma Mckenzie MD - 11/01/2021 10:36 AM CDT I have reviewed the H&P, examined the patient, and endorse the findings as written. Plan of Care : Based on the above findings, I consider Tess Benedict to be an acceptable risk for : Procedure(s): Left Total Hip Arthroplasty- Anterior Approach Depuy- Actis, Omnitrac, Aquamantys, 1 liter beta rinse, Pt to stay (Rom danielito 10/28 BS) Source Note - Susy Hummel PA - 10/21/2021 1:15 PM CDT Images from the original note were not included. This was a telemedicine visit with Tess martell which took place via Telephone. During the visit, Chente was located in the office and the patient was located at home. The patient visit startedat 12:45 and ended at 12:48. The patient has been informed that the visit may not be secure and acknowledged the information. I have explained the option of participating in a telephone or video visit during the [facility] [place] [address] emergency to the patient. After being given an opportunity to ask questions about and discuss this type of visit, the patient verbally consented to proceeding with the telephone/video visit.The patient understands that this service replaces an office visit and they may be billed and/or responsible for any applicable copayments. TEO Todd PRE-OPERATIVE EVALUATION NOTE History of Present Illness Patient is a 85 y.o. female who presents for a pre-operative visit before her total left hip arthroplasty scheduled for 11/01/21. The patient has no new complaints at this time. She has been seen and cleared by her PCP. ROS Negative except for stated HPI. Physical Exam Physical examination omitted due to telemedicine visit. Assessment 1. left hip DJD Plan We will move forward with the patient's scheduled joint arthroplasty. All questions were answered and the patient voiced agreement with the plan moving forward. documented in this encounter Nursing Notes * Gi Gandara - 11/03/2021 1:23 PM CDT Patient and daughter received discharge instructions. Removed IV, applied drsg. Patient and belongings wheeled to council member for peanut picker in personal vehicle. documented in this encounter Miscellaneous Notes * Plan of Care - Gi Gandara - 11/03/2021 1:22 PM CDT Problem: Health Behavior: Goal: Understanding of discharge needs will improve Outcome: Completed Problem: Lack of Knowledge: Goal: Ability to state ways to decrease the risk of falls will improve Outcome: Completed Problem: Safety: Goal: Will remain free from falls Outcome: Completed Goal: Will remain free from injury from falls Outcome: Completed Goal: Will remain free from falls and injury in home environment Outcome: Completed Problem: Activity: Goal: Ability to avoid complications of mobility impairment will improve Outcome: Completed Goal: Ability to ambulate will improve Outcome: Completed Goal: Ability to perform rehabilitation exercises will improve Outcome: Completed Problem: Lack of Knowledge: Goal: Verbalization of understanding the information provided will improve Outcome: Completed Problem: Physical Regulation: Goal: Ability to maintain clinical measurements within normal limits will improve Outcome: Completed Goal: Postoperative complications will be avoided or minimized Outcome: Completed Goal: Diagnostic test results will improve Outcome: Completed Problem: Self-Care: Goal: Ability to meet self-care needs will improve Outcome: Completed Problem: Sensory: Goal: Pain level will decrease Outcome: Completed Problem: Skin Integrity: Goal: Signs of wound healing will improve Outcome: Completed Goal: Will remain free from infection Outcome: Completed Goal: Risk for impaired skin integrity will decrease Outcome: Completed Goals: Clinical Goals for the Shift: VSS. pain control, remain free from injury Summary: VS remained stable, pain controlled, remained free from injury. * Plan of Care - Tong Aquino OT - 11/03/2021 9:51 AM CDT Problem: Dressings Lower Extremities Goal: STG - Patient to complete lower body dressing Description: using adaptive equipment as indicated/trained with minimal assist Outcome: Progressing Flowsheets (Taken 11/03/2021 0949) Assist Level: CGA Note: Assist for DORCAS almazan, pt's daughter and patient educated in sequencing and technique with LB dressing and with don/doff DORCAS almazan Problem: Grooming Goal: STG - Patient will complete grooming Description: in stance with independence Flowsheets (Taken 11/03/2021 0949) Assist Level: SBA Note: In stance at sink Problem: Toileting Goal: STG - Patient will complete toileting tasks with Description: independence Outcome: Defer Note: Patient declined Problem: Transfers Goal: STG - Patient will perform toilet transfer Description: with modified independence Outcome: Defer Note: Patient declined toilet transfer but did complete functional mobility and transfers in room with SBA using w/w * Plan of Care - Laureen Begum RN - 11/03/2021 12:41 AM CDT Goals: Clinical Goals for the Shift: Pt to remain hemodynamically stable this shift. Summary: Problem: Health Behavior: Goal: Understanding of [...] Outcome: Progressing Problem: Activity: Goal: Ability to avoid complications of mobility impairment will improve Outcome: Progressing Goal: Ability to ambulate will improve Outcome: Progressing Goal: Ability to perform rehabilitation exercises will improve Outcome: Progressing Problem: Lack of Knowledge: Goal: Verbalization of understanding the information provided will improve Outcome: Progressing Problem: Physical Regulation: Goal: Ability to maintain clinical measurements within normal limits will improve Outcome: Progressing Goal: Postoperative complications will be avoided or minimized Outcome: Progressing Goal: Diagnostic test results will improve Outcome: Progressing Problem: Self-Care: Goal: Ability to meet self-care needs will improve Outcome: Progressing Problem: Sensory: Goal: Pain level will decrease Outcome: Progressing Problem: Skin Integrity: Goal: Signs of wound healing will improve Outcome: Progressing Goal: Will remain free from infection Outcome: Progressing Goal: Risk for impaired skin integrity will decrease Outcome: Progressing * Plan of Care - Gi Gandara - 11/02/2021 5:00 PM CDT Problem: Health Behavior: Goal: Understanding [...] Outcome: Progressing Problem: Activity: Goal: Ability to avoid complications of mobility impairment will improve Outcome: Progressing Goal: Ability to ambulate will improve Outcome: Progressing Goal: Ability to perform rehabilitation exercises will improve Outcome: Progressing Problem: Lack of Knowledge: Goal: Verbalization of understanding the information provided will improve Outcome: Progressing Problem: Physical Regulation: Goal: Ability to maintain clinical measurements within normal limits will improve Outcome: Progressing Goal: Postoperative complications will be avoided or minimized Outcome: Progressing Goal: Diagnostic test results will improve Outcome: Progressing Problem: Self-Care: Goal: Ability to meet self-care needs will improve Outcome: Progressing Problem: Sensory: Goal: Pain level will decrease Outcome: Progressing Problem: Skin Integrity: Goal: Signs of wound healing will improve Outcome: Progressing Goal: Will remain free from infection Outcome: Progressing Goal: Risk for impaired skin integrity will decrease Outcome: Progressing Goals: Clinical Goals for the Shift: VSS, pain control, postioin changes, education about pain meds and movement. Summary: Pain well controlled, VSS, patient ambulated with asst x1. * Plan of Care - Jenny Esposito RN - 11/02/2021 1:25 PM CDT CM Initial Assessment Interview Note Information Obtained From: Patient (11/02/21 2194) Admission Source: Scheduled surgery Impression: Left hip Plan Includes: Assessment and DC planning Primary Source of Transportation: Does the patient need discharge transport arranged?: No (11/01/21 2358) Health Insurance Coverage: Medicare A/B and BCBS Prescription Coverage: yes Pharmacy: [facility] Primary Care Provider: Pepper Morgan MD Prior to Admission: Primary Caregiver: Self Support System: Family members Home Care Services: Yes Type of Home Care Services: Home therapies Home care service name and phone number: [facility] to start PT on 11/05. Durable Medical Equipment: Walker (wheeled) Living Arrangements: Alone Type of Residence: Private residence Steps in home? : Yes, Inside home Number of steps inside:: 2 steps (11/02/21 1324) SDOH: Transportation Needs: Not on file Financial Resource Strain: Not on file Housing Stability: Not on file Social Connections: Not on file Tobacco Use: Medium Risk ??? Smoking Tobacco Use: Former Smoker ??? Smokeless Tobacco Use: Never Used Social History Substance and Sexual Activity Alcohol Use Not Currently Current/Former Smokers - Passive Exposure Questions Responses Current/Former Smoker - passive exposure (e.g., household member smoking)? Yes E-Cigarette/Vaping Questions Responses E-cigarette/Vaping Use Never User PHQ Screening Potential discharge needs include: Dialysis: Behavioral Health Services: Behavioral Health Services: No (11/02/21 1324) Patient expects to be Discharged to: Private residence, (11/02/21 132) Additional Information: DC plan dicussed with patient. Goal is to return home alone. Lives in a condo and her dtr will be her ride home. Has a WW. [facility] to start PT on 11/05. Barrier to dc is recovery after hip surgery. No other needs noted at this time. Patient's Identified Problem/Goal Problem: Ensure acute medical needs are met and that patient has a safe discharge plan. Goal: Secure a discharge plan that patient/family are agreeable with and ensure patient has continuum of care. Case management will follow for discharge planning and send referrals as needed. Jenny Esposito RN * Plan of Care - Jenny Esposito RN - 11/02/2021 10:31 AM CDT Changed to inpt. Referral placed in [facility] to [facility] for [facility] PT. Jake MCNAIR [facility] and Chrystal MCNAIR CN made aware. Patient is refusing SNF. Awaiting acceptance with start of care date. [facility] accepted with start of care 11/05. Jake MCNAIR [facility] in patient room informing her of acceptance. * Anesthesia Post-op Follow-up Note - Hank Benjamin CRNA - 11/02/2021 8:43 AM CDT Patient: Tess Benedict Procedure(s): Left Total Hip Arthroplasty- Anterior Approach Patient location: [id number] Last vitals: Vitals: 11/02/21 0807 BP: 135/81 Pulse: 68 Resp: 20 Temp: 37 ??C (98.6 ??F) SpO2: 98% Level of consciousness: aox3 Post-anesthesia pain: 5/10 pain Anesthetic complications: no * Plan of Care - Laureen Begum RN - 11/02/2021 12:51 AM CDT Goals: Clinical Goals for the Shift: Pt to remain hemodynamically stable this shift. Summary: Problem: Health Behavior: Goal: Understanding of [...] Outcome: Progressing Problem: Activity: Goal: Ability to avoid complications of mobility impairment will improve Outcome: Progressing Goal: Ability to ambulate will improve Outcome: Progressing Goal: Ability to perform rehabilitation exercises will improve Outcome: Progressing Problem: Lack of Knowledge: Goal: Verbalization of understanding the information provided will improve Outcome: Progressing Problem: Physical Regulation: Goal: Ability to maintain clinical measurements within normal limits will improve Outcome: Progressing Goal: Postoperative complications will be avoided or minimized Outcome: Progressing Goal: Diagnostic test results will improve Outcome: Progressing Problem: Self-Care: Goal: Ability to meet self-care needs will improve Outcome: Progressing Problem: Sensory: Goal: Pain level will decrease Outcome: Progressing Problem: Skin Integrity: Goal: Signs of wound healing will improve Outcome: Progressing Goal: Will remain free from infection Outcome: Progressing Goal: Risk for impaired skin integrity will decrease Outcome: Progressing * Op Note - Puma Mckenzie MD - 11/01/2021 12:14 PM CDT Preoperative diagnosis: left Hip osteoarthritis Postoperative diagnosis: Same as preoperative diagnosis Procedure: left total hip arthroplasty Surgeon: Puma Mckenzie MD Sterile Preparation Technician: Estephanie Garcia Anesthesia: Spinal Estimated blood loss: 250cc Complications: None Condition: Stable to PACU Implanted component: Implant Name Type Inv. Item Serial No. Fire Coordinator Lot No. [id number] No. Used Action [employer] [id number] PINNACLE 52MM 36MM HIP NEUTRAL LINER ACETABULAR ALTRX STERILE LATEX FREE - [id number] [employer] [id number] [place] 52mm 36mm Hip Neutral Liner AcetabularAltrx Sterile Latex Free [employer] [id number] Left 1 Implanted [employer] PINNACLE 52MM SECTOR HIP SHELL ACETABULAR GRIPTION STERILE LATEX FREE [id number] - [id number] [employer] [place] 52mm Sector Hip Shell Acetabular Gription Sterile Latex Free [id number] Dep[employer] [id number] Left 1 Implanted [employer] [id number] ACTIS COLLAR HIP 7 HIGH OFFSET STEM FEMORAL - [id number] [employer] [id number] Actis Collar Hip 7 High Offset Stem Femoral Dep[employer] [id number] Left 1 Implanted [employer] ARTICUL/SASCHA 36MM CEMENTLESS HIP +1.5MM 12/14 TAPER HEAD FEMORAL LATEX FREE [id number] - [id number] [employer] Articul/sascha 36mm Cementless Hip +1.5mm 12/14 Taper HeadFemoral Latex Free [id number] Dep[employer] [id number] Left 1 Implanted [employer] PINNACLE 6.5MM 35MM ACETABULAR CANCELLOUS SCREW BONE STERILE [id number] - [id number] [employer] [place] 6.5mm 35mm Acetabular Cancellous Screw Bone Sterile [id number] [employer] [id number] Left 1 Implanted Technique: I met the patient in the preoperative holding area. I signed the patient's hip on the appropriate consented side. The patient was then transported to the operative room. Anesthesia was administered and the patient was positioned supine on the operating table. The operative extremity was prepped and draped in the usual sterile fashion. Preoperative antibiotics were given. A time-out was carried out with all appropriate parties in the room. A longitudinal incision was made over the anterior aspect of the hip. Dissection was carried out through the subcutaneous tissue. The fascia of the tensor muscle was identified and incised sharply taking care to avoid micro-trauma to underlying muscle fibers. The muscle belly of the tensor fascial savita was mobilized laterally. A Cobra retractors was inserted on the superior femoral neck beneath the gluteus minimus. The branches of the lateral femoral circumflex artery were identified and coagulated using Aqua Mantis. Meticulous hemostasis was observed throughout the entire procedure and all vital structures were carefully protected. The pre-capsular fat pad was excised exposing the anterior capsule. The Albert wound retratcor was inserted. Cobra retractors were reinserted on the superior and anterior aspects of the femoral neck.A Ken retractor was inserted inferiorly to protect the vastus lateralis. Bovie electrocautery wasutilized to make an inverted T capsulotomy. Ortho cord suture was placed in the corner of the capsular flaps. Retractors were then inserted intracapsularly. An in situ femoral neck osteotomy was performed referencing off the lesser trochanter at the preoperatively templated level. A corkscrew was utilized to remove the femoral head. The femoral head was found to be severely worn with significant damage to the articular cartilage. The gluteus minimus and medius were carefully dissected off the superior capsule. The acetabulum was then exposed with the posterior, inferior, and anterior straight cathryn retractors with lap pads attached as handles. The labrum and pulvinar were excised using Bovie electrocautery. The acetabulum was then reamed sequentially up to the appropriate size for a line to line fit. Fluoroscopy was utilized throughout this process to ensure appropriate size. The acetabular cavity was then thoroughly irrigated. The final acetabular component was then impacted into place utilizing fluoroscopy to optimize position. A 35mm bone screw was drilled, measured, and placed to augment fixation. The appropriately sized liner was then impacted into place and locking was confirmed. Attention was then turned to the femur. The hook was inserted around the proximal femur. The leg was brought into progressive extension, abduction, and external rotation. The conjoined tendon was peeled back, and the piriformis and obturator externus were preserved. This provided safe proximal femoral exposure. A combination of rongeur and Midas bur were utilized to lateralize. A blunt tipped canal finder was then inserted to avoid femoral perforation. Sequential broaching ensued up to the appropriate size and depth based on preoperative templating. This provided a tight fit. Therefore the appropriate neck and head combination were placed on the trial femoral broach, and the hip was reduced. This was done gently with traction and internal rotation. Following trial reduction shuck test was appropriate, intraoperative stability testing was appropriate, and leg lengths and offset appeared appropriate. Fluoroscopic images confirmed appropriate femoral and acetabular component positions. Therefore the hip was gently dislocated, re-exposed, and all trial components were removed. The femur was thoroughly irrigated. The final femoral component was then tapped into place and sat at the same position as the previous broach. Therefore the appropriately sized femoral head was tapped onto the clean dry trunnion. Locking was confirmed. The hip was once again gently reduced with traction and internal rotation. Final trialing revealed appropriate stability, length, and offset. Final x-rays revealed appropriate component position. Therefore the hip was irrigated with Betadine lavage, further irrigated with saline and antibiotic solution. Standard analgesic cocktail was then injected into the periarticular soft tissues. The wound was closed with tying of ortho cord suture in the capsule, #1 stratafix in the deep fascia, 2.0 Quill in the subcutaneous tissue, and running 3.0 Monocryl subcuticular stitch reinforced with Steri-Strips. A sterile bandage was applied and the patient was transported to the PACU in good condition having had no complications during their procedure. Sponge needle and instrument counts were all correct at the end of the case. * Perioperative Nursing Note - Evelyn Devries RN - 10/25/2021 1:15 PM CDT Communication sent via R[employer] App chat to PCP and sleep medicine with score of 4 on the STOP BANG questionaire as requested by anesthesia * Perioperative Nursing Note - Evelyn Devries RN - 10/25/2021 12:20 PM CDT Pt is vaccinated/booster, pt is having pre-op labs at [facility] 10/25/21 * Pre-Procedure Instructions - Evelyn Devries RN - 10/25/2021 11:46 AM CDT We are pleased that you and your doctor have chosen [facility] for your surgery. We hope that the following information will help make your visit a pleasant one. Surgery Date: 11/01/2021 Before your surgery: ?? Notify your doctor of ANY change in your health such as a cold, sore throat, fever, any infection or a change in the problem for which you are having your surgery. ?? Follow any instructions given to you by your doctor or surgeon. Check with your doctor if you need to STOP taking: ?? Aspirin (ordered by your doctor) ?? Instructed by Dr Morgan to hold Eliquis on Sunday 10/29 One week before surgery STOP taking: ?? All herbal supplements ?? Aspirin (not ordered by your doctor) ?? Aleve, Advil, Motrin, Ibuprofen, or other similar medications (Tylenol is okay). 24 hours before your surgery: ?? No smoking or alcoholic drinks. Night before your surgery: ?? Do not eat or drink anything after midnight. ?? Follow surgeon's instructions for anti-bacterial shower night before and morning of surgery. Day of surgery: ?? Do not swallow any water when you brush your teeth ?? ONLY take these pills with a tiny sip of water. Pre-Surgery Instructions: Medication Instructions ??? albuterol HFA (Proventil HFA) 90 mcg/actuation inhaler ??? felodipine (PLENDIL) 5 mg 24 hr tablet ??? pantoprazole DR (PROTONIX) 20 mg EC tablet ??? pramipexole (MIRAPEX) 0.125 mg tablet ??? propranoloL (INDERAL) 20 mg tablet ?? Use no make-up, nail yakut, lotions, oils or powders on your skin. ?? Wear comfortable clothes that will not be tight in the area of your surgery. ?? Leave all valuables and jewelry (including all body piercing jewelry) at home. ?? Please bring your a photo ID and insurance cards with you. ?? Check in at the Registration Desk. ?? If you are 17 years old or younger, a parent or guardian must come with you. After your Outpatient Surgery: ?? You must have a responsible adult to drive you home, you will not be allowed to drive or take a cab home. ?? We recommend you have someone stay with you for 24 hours after your surgery. What to bring if you are spending the night with us: ?? Bring toiletry items such as: robe, slippers, toothbrush, toothpaste, brush or comb. ?? Bring contact lens, hearing aids, glass cases and denture container if you use any of these items. ?? The hospital will provide you with a gown. Questions or concerns: ?? If you have any questions or concerns regarding your procedure, contact your surgeon as soon as possible. ?? If you have questions regarding your Pre-Admission Testing, please call us. We can be reached atthe number posted at the top of the page. documented in this encounter Plan of Treatment Not on file documented as of this encounter Procedures Procedure Name Priority Date/Time Associated Diagnosis Comments EGFR Routine 11/03/2021 5:09 AM CDT CBC WITHOUT DIFFERENTIAL Routine 11/03/2021 5:09 AM CDT BASIC METABOLIC PANEL Routine 11/03/2021 5:09 AM CDT EGFR Routine 11/02/2021 6:48 AM CDT CBC WITHOUT DIFFERENTIAL Routine 11/02/2021 6:48 AM CDT BASIC METABOLIC PANEL Routine 11/02/2021 6:48 AM CDT SURGICAL PATHOLOGY Routine 11/01/2021 1: 39 PM CDT Primary osteoarthritis of left hip XR PELVIS ORTHO VIEW ED Urgent/IP Urgent 11/01/2021 1:32 PM CDT FL FLUOROSCOPY < 1 HOUR IP Routine 11/01/2021 1:05 PM CDT XR HIP LEFT 1 VIEW IP Routine 11/01/2021 1: 05 PM CDT ARTHROPLASTY TOTAL HIP 11/01/2021 11:08 AM CDT Primary osteoarthritis of left hip Special Needs Depuy- Actis, Omnitrac, Aquamantys, 1 liter beta rinse, Pt to stay POTASSIUM, WHOLE BLOOD STAT 11/01/2021 10:03 AM CDT APTT STAT 11/01/2021 10:03 AM CDT PROTIME-INR STAT 11/01/2021 10:03 AM CDT documented in this encounter Results * eGFR (11/03/2021 5:09 AM CDT) eGFR 91 mL/min/1. 73 m2 [facility] ([place]) Comment: [...] interpretive data was last reviewed 2021. Blood 11/03/2021 5:09 AM CDT 11/03/2021 5:43 AM CDT Kathie BRUCE LAB BLOOD ORDERABLE S Final Result [facility] ([place]) 1 [facility] [place] [address] * (ABNORMAL) CBC without differential (11/03/2021 5:09 AM CDT) WBC 11.0(H) 3.8 - 9.9 K/cumm [facility] ([place]) Hgb 11.4(L) 11.9 - 15.5 g/dL [facility] ([place]) Hct 35.1(L) 35.6 - 45.5 % [facility] ([place]) Plt 214 150 - 400 K/cumm [facility] ([place]) MPV 9.4 9.1 - 12.3 fL [facility] ([place]) RBC 4.08 3.90 - 5.20 M/cumm [facility] ([place]) MCV 86.0 81.3 - 96.4 fL [facility] ([place]) MCH 27.9 27.1 - 33.3 pg [facility] ([place]) MCHC 32.5 32.3 - 35.7 g/dL [facility] ([place]) RDW CV 14.6 11.1 - 14.9 % [facility] ([place]) RDW SD 45.8 35.7 - 48.1 fL [facility] ([place]) NRBC abs 0.00 0.00 - 0.01 K/cumm [facility] ([place]) Blood 11/03/2021 5:09 AM CDT 11/03/2021 5:51 AM CDT Katihe BRUCE LAB BLOOD ORDERABLE S Final Result [facility] ([place] Department [place] [address] * (ABNORMAL) Basic metabolic panel (11/03/2021 5:09 AM CDT) Pathologist [facility] Sodium 135 135 - 145 mmol/L [facility] ([place]) Potassium, pl 4.0 3.3 - 4.9 mmol/L [facility] ([place]) Chloride 101 97 - 110 mmol/L [facility] ([place]) CO2 26 22 - 32 mmol/L [facility] ([place]) Anion gap 8 2 - 15 mmol/L [facility] ([place]) BUN 14 8 - 25 mg/dL [facility] ([place]) Creatinine 0.54(L) 0.60 - 1.10 mg/dL [facility] ([place]) Glucose 120 70 - 199 mg/dL [facility] ([place]) [...] interpretive data was last revised 2017. Calcium 9.2 8.5 - 10.3 mg/dL [facility] ([place]) Blood 11/03/2021 5:09 AM CDT 11/03/2021 5:43 AM CDT us Kathie BRUCE LAB BLOOD ORDERABLE S Final Result [facility] Department [place] [address] * eGFR (11/02/2021 6:48 AM CDT) Pathologist [facility] eGFR 88 mL/min/1. 73 m2 [facility] ([place]) Comment: Interpretive Data Reference Interval [...] interpretive data was last reviewed 2021. Blood 11/02/2021 6:48 AM CDT 11/02/2021 7:07 AM CDT Kathie BRUCE LAB BLOOD ORDERABLE S Final Result [facility] Department [place] [address] * (ABNORMAL) CBC without differential (11/02/2021 6:48 AM CDT) Pathologist [facility] WBC 13.8(H) 3.8 - 9.9 K/cumm [facility] ([place]) Hgb 11.9 11.9 - 15.5 g/dL [facility] ([place]) Hct 37.5 35.6 - 45.5 % [facility] ([place]) Plt 239 150 - 400 K/cumm [facility] ([place]) MPV 9.1 9.1 - 12.3 fL [facility] ([place]) RBC 4.34 3.90 - 5.20 M/cumm [facility] ([place]) MCV 86.4 81.3 - 96.4 fL [facility] ([place]) MCH 27.4 27.1 - 33.3 pg [facility] ([place]) MCHC 31.7(L) 32.3 - 35.7 g/dL [facility] ([place]) RDW CV 14.4 11.1 - 14.9 % [facility] ([place]) RDW SD 45.7 35.7 - 48.1 fL [facility] NRBC abs 0.00 0.00 - 0.01 K/cumm [facility] Blood 11/02/2021 6:48 AM CDT 11/02/2021 7:08 AM CDT Kathie BRUCE LAB BLOOD ORDERABLE S Final Result [facility] ([place]) [facility] Department [place] [address] * (ABNORMAL) Basic metabolic panel (11/02/2021 6:48 AM CDT) Sodium 134(L) 135 - 145 mmol/L [facility] Potassium, pl 4.2 3.3 - 4.9 mmol/L [facility] Chloride 101 97 - 110 mmol/L [facility]) CO2 27 22 - 32 mmol/L [facility] Anion gap 6 2 - 15 mmol/L [facility] BUN 12 8 - 25 mg/dL [facility] Creatinine 0.64 0.60 - 1.10 mg/dL [facility] Glucose 122 70 - 199 mg/dL [facility] ([place]) Comment: Interpretive Data Fasting glucose [...] interpretive data was last revised 2017. Calcium 8.6 8.5 - 10.3 mg/dL [facility] [facility] Blood 11/02/2021 6:48 AM CDT 11/02/2021 7:07 AM CDT us Kathie BRUCE LAB BLOOD ORDERABLE S Final Result [facility] [address] [place] [address] [place] [address] * Surgical pathology (11/01/2021 1:39 PM CDT) Tissue (Bone Fragment(s),) 11/01/2021 12:23 PM CDT Narrative PATHOLOGY [facility] [facility] - 11/04/2021 12:31 PM CDT EPIC results best viewed via link to PDF [facility] Department of Pathology [address] [place] [id number] Note to Patients: This report may contain a detailed description of human tissue sent by a health care provider to the laboratory for pathologic evaluation. The content of this report is essential for diagnosis and may provide important critical findings. This information may be unfamiliar to patients to review without a medical professional present. It is advised that the patient review this report in the presence of a health care provider who can answer questions and explain the details. Final Report Patient Name: ??TESS BENEDICT William Address: ??[address] [place], [place] [address]M[place]I [place], ??[place], [place] ??[address] Gender: ??F : ??1935 (Age: 85) Service: ??Surgery Location: ??[facility] Hospital #: ??[id number] Patient Type: ??[facility] Accession # ?[id number] Taken: ??11/01/2021 Received: ??11/01/2021 Accessioned: ??11/01/2021 Reported: ??11/04/2021 Physician(s):Dr. Puma Mckenzie M.D. Diagnosis: Left hip, arthroplasty: ? -Bone with features of osteoarthritis Raad Mann M.D. Report Electronically Reviewed and Signed Out By ??Raad Mann M.D. ??11/04/2021 12:31:54 Specimen(s) Received: A: Left hip bone and tissue Microscopic Description: Microscopic examination was performed with findings reflected in the diagnosis. Clinical History: Osteoarthritis of left hip. ??Left total hip arthroplasty ??anterior approach. ?? Gross Description: The specimen is received in a single container labeled Tess Benedict and left hip . ??It is a 4.4 cm in diameter femoral head and separate 15 cc aggregate of henson gritty hemorrhagic cortical and cancellous bone. The articular surface of the femoral head shows degenerative changes of the cartilage with erosion and eburnation. The femoral neck margin is smooth. The specimen is bisected revealing no subchondral gross lesions. Esthetician Makeup Artist sections are submitted in one cassette after decalcification. ??Raad Mann M.D./Josef Vinson REPORT IMAGES AND SCANNED DOCUMENTS, IF INCLUDED, ONLY VIEWABLE IN PDF VERSION OF REPORT The performance characteristics of some immunohistochemical stains, fluorescence in-situ hybridization tests and immunophenotyping by flow cytometry cited in this report (if any) were determined by the Surgical Pathology Department at [facility] as part of an ongoing software quality assurance analyst program and in compliance with federally mandated [...] characteristics determined by the Surgical Pathology Department [facility]. ??It has not been cleared or approved by the U. S. Food and Drug Administration. Note for decalcified specimens: This assay has not been validated on decalcified tissues. Results should be interpreted with caution given the possibility of false negativity on decalcified specimens us Puma Mckenzie MD LAB PATHOLOGY ORDERABLES Final Result [facility] [address] [place] [address] * XR Pelvis Ortho View (11/01/2021 1:32 PM CDT) Anatomical Region Laterality Modality Body, Pelvis N/A Computed Radiogr aphy 11/01/2021 1:47 PM CDT Narrative 11/01/2021 1:48 PM CDT EXAM DESCRIPTION: XR PELVIS ORTHO VIEW REASON FOR STUDY: s/p L ASHLEE. ??Left hip osteoarthritis. Post op Left ASHLEE. ? TECHNIQUE: Single-view submitted with comparison 07/10/2019. FINDINGS: There has been interval left total hip arthroplasty in near anatomic alignment. ??There are no fractures. ??Soft tissue swelling and foci of gas are present. ??Prior right total hip arthroplasty is noted. IMPRESSION: Interval left total hip arthroplasty in near anatomic alignment. THIS IS AN ELECTRONICALLY VERIFIED FINAL REPORT 11/01/2021 1:48 PM - Electronically signed by ??Klaus Reddy M.D. MF: JEANNE D: ??11/01/2021 1:48 PM T: ??11/01/2021 1:48 PM Report ID: [id number] Reading Location: ??[id number] Procedure Note Klaus Reddy MD - 11/01/2021 EXAM DESCRIPTION: XR PELVIS ORTHO VIEW REASON FOR STUDY: s/p L ASHLEE. Left hip osteoarthritis. Post op Left ASHLEE. TECHNIQUE: Single-view submitted with comparison 07/10/2019. FINDINGS: There has been interval left total hip arthroplasty in near anatomic alignment. There are no fractures. Soft tissue swelling and foci of gasare present. Prior right total hip arthroplasty is noted. IMPRESSION: Interval left total hip arthroplasty in near anatomic alignment. THIS IS AN ELECTRONICALLY VERIFIED FINAL REPORT 11/01/2021 1:48 PM - Electronically signed by Klaus Reddy M.D. MF: [email or web address] Report ID: [id number] Reading Location: [id number] Kathie BRUCE IMG XR PROCEDURES F inal Result * FL Fluoroscopy < 1 Hour (11/01/2021 1:05 PM CDT) Narrative [facility] - 11/01/2021 1:06 PM CDT The images from this study are not interpreted by Radiology. ??Please refer to the physician's procedure / OR operative note. Puma Mckenzie MD IMG FLUOROSCOPY PROCEDUR ES Final Result [facility] * XR Hip Left 1 View (11/01/2021 1:05 PM CDT) Anatomical Region Laterality Modality Lower Extremities, Hip, Pelvis Left R adio Fluoroscopy 11/02/2021 9:28 AM CDT Narrative 11/02/2021 9:29 AM CDT EXAM DESCRIPTION: ?? XR HIP LEFT 1 VIEW REASON FOR STUDY: ?? pain ?? Left hip surgery ??Ft: 9.6 seconds ??1.46 mGy ?? TECHNIQUE: ?? AP and frog-leg/cross-table lateral ??view of the left hip. COMPARISON: ?? 07/15/2021 FINDINGS: ??Multiple intraoperative images show placement of a left hip arthroplasty. ?? The final image shows it in expected position without radiographic evidence of periprosthetic fracture. ??Gas and soft tissue swelling are seen in the operative bed. There is a right hip arthroplasty. IMPRESSION: ??Intraoperative images from a left hip arthroplasty. ?? THIS IS AN ELECTRONICALLY VERIFIED FINAL REPORT 11/02/2021 9:29 AM - Electronically signed by ??Ilya MADISON: LOS D: ??11/02/2021 9:29 AM T: ??11/02/2021 9:29 AM Report ID: [id number] Reading Location: ??[id number] Procedure Note Ilya Antonio MD - 11/02/2021 EXAM DESCRIPTION: XR HIP LEFT 1 VIEW REASON FOR STUDY: pain Left hip surgery Ft: 9.6 seconds 1.46 mGy TECHNIQUE: AP and frog-leg/cross-table lateral view of the left hip. COMPARISON: 07/15/2021 FINDINGS: Multiple intraoperative images show placement of a left hiparthroplasty. The final image shows it in expected position without radiographicevidence of periprosthetic fracture. Gas and soft tissue swelling are seen in the operative bed. There is a right hip arthroplasty. IMPRESSION: Intraoperative images from a left hip arthroplasty. THIS IS AN ELECTRONICALLY VERIFIED FINAL REPORT 11/02/2021 9:29 AM - Electronically signed by Ilya MADISON: LOS Report ID: [id number] Reading Location: [id number] Puma Mckenzie MD IMG XR PROCEDURES Final Result * aPTT (11/01/2021 10:03 AM CDT) aPTT 33 27 - 37 sec [facility] ([place]) Comment: Interpretive data Heparin therapeutic range: 60-94 seconds Range based on correlation with therapeutic heparin activity range of 0.3-0.7 units/ml. Current interpretive data was last revised on 2019. Blood 11/01/2021 10:0 3 AM CDT 11/01/2021 10:05 AM CDT Puma Mckenzie MD LAB BLOOD ORDERABLES Fin al Result [facility] ([place]) 1 [facility] [place] [address] * Protime-INR (11/01/2021 10:03 AM CDT) PT 12.6 9.5 - 13.6 sec [facility] ([place]) INR 1.1 0.9 - 1.2 [facility] Comment: Interpretive data Oral anticoagulant therapeutic ranges: Venous thromboembolism prophylaxis or treatment: 2.0-3.0 CARDIOLOGY Standard range: 2.0-3.0 High-intensity range: 2.5-3.5 Refer to indication-specific guidelines for appropriate target ranges for prosthetic heart valve replacement. Current interpretive data was last revised on 2019. Blood 11/01/2021 10:0 3 AM CDT 11/01/2021 10:05 AM CDT Puma Mckenzie MD LAB BLOOD ORDERABLES Fin al Result Performing Organization Address City/[facility] Co de Phone Number [facility] [facility] [address] [place] [address] [place] [address] * Potassium, whole blood (11/01/2021 10:03 AM CDT) Potassium, bld 4.1 3.3 - 4.9 mmol/L [facility] Comment: Interpretive Data Unable to assess hemolysis. ??Invitro hemolysis causes falsely elevated potassium. Current Interpretive Data was last revised on 2020. Blood 11/01/2021 10:0 3 AM CDT 11/01/2021 10:05 AM CDT Hugh Lackey MD LAB BLOOD ORDERABLES F inal Result Performing Organization Address City/[facility]/ZIP Co de Phone Number [facility] [facility] [address] [facility] [place] [address] documented in this encounter Visit Diagnoses Diagnosis Primary osteoarthritis of left hip- Primary documented in this encounter Admitting Diagnoses Diagnosis Primary osteoarthritis of left hip documented in this encounter Administered Medications Inactive Administered Medications - up to 3 most recent administrations Medication Order MAR Action Action Date Dose Rate Site acetaminophen (TYLENOL) tablet 1,000 mg 1,000 mg, oral, Once, On Mon11/01/21 at 1015, For 1 dose, Pre-Op, Indications: Pre-Emptive AnalgesiaIndications:Pre-Emptiv e Analgesia Given 11/01/2021 10:17 AM CDT 1,000 mg albuterol 2.5 mg /3 mL (0.083 %) nebulizer solution 2.5 mg 2.5 mg, nebulization, Every 6 hours PRN (manager social responsibility), wheezing, shortness of breath, Starting on Mon11/01/21 at 1605 apixaban (ELIQUIS) tablet 5 mg 5 mg, oral, 2 times daily, First dose on Mon11/01/21 at 2100, Indications: VTE Prophylaxis, VTE Prophylaxis Following Ortho SurgeryIndications:VTE Prophylaxis,VTE Prophylaxis Following Ortho Surgery Given 11/03/2021 7:29 AM CDT 5 mg Given 11/02/2021 8:07 PM CDT 5 mg Given 11/02/2021 7:48 AM CDT 5 mg ascorbic acid (VITAMIN C) tablet/chewable tablet 500 mg 500 mg, oral, Daily, First dose on Mon11/01/21 at 1645, Indications: Vitamin deficiency preventionIndications:Vitamin deficiency prevention Given 11/03/2021 7:30 AM CDT 500 mg Given 11/02/2021 7:48 AM CDT 500 mg ceFAZolin (ANCEF) 2,000 mg/20 mL in sterile water (premix) 2,000 mg 2,000 mg, intravenous, at 400 mL/hr, Administer over 3 Minutes, Every 8 hours, First dose on Mon11/01/21 at 2000, For 2 doses, Beginning 8 hours after last dagoberto-operative dose., Indications: Prophylaxis, SurgicalIndications:Prophylaxis, Surgical Given 11/02/2021 3:21 AM CDT 2,000 mg 400 mL/hr Given 11/01/2021 8:02 PM CDT 2,000 mg 400 mL/hr famotidine (PEPCID) tablet 20 mg 20 mg, oral, Daily, First dose (after last modification) on Mon11/01/21 at 1645, Indications: HeartburnIndications:Heartburn Given 11/03/2021 7:30 AM CDT 20 mg Given 11/02/2021 7:48 AM CDT 20 mg felodipine (PLENDIL) tablet 5 mg 5 mg, oral, Daily, First dose on Mon11/01/21 at 1645, Please use patients home supply of medication, pharmacy does not carry and we have no automatic substitution. The patient supplied medication of plendil 5mg needs to be tubed to pharmacy for verification. Do not crush, chew, cut, dissolve, open or otherwise manipulate tablet/capsule. Given 11/03/2021 7:36 AM CDT 5 mg ferrous sulfate tablet 325 mg 325 mg (65 mg of elemental iron), oral, Daily with breakfast, First dose on Mon11/02/21 at 0800, Indications: Iron Deficiency Anemia, Anemia preventionIndications:Iron Deficiency Anemia,Anemia prevention Given 11/03/2021 7:30 AM CDT 325 mg Given 11/02/2021 7:48 AM CDT 325 mg furosemide (LASIX) tablet 40 mg 40 mg, oral, Daily, First dose on Mon11/01/21 at 1645 Given 11/03/2021 7:30 AM CDT 40 mg Given 11/02/2021 7:48 AM CDT 40 mg HYDROcodone-acetaminophen (NORCO) 5-325 mg per tablet 1 tablet 1 tablet, oral, Every 4 hours PRN, 1st line for pain, Starting on Mon11/01/21 at 1603, Indications: PainIndications:Pain Given 11/02/2021 5:58 PM CDT 1 tablet Given 11/02/2021 12:48 PM CDT 1 tablet Given 11/01/2021 6:15 PM CDT 1 tablet HYDROcodone-acetaminophen (NORCO) 5-325 mg per tablet 2 tablet 2 tablet, oral, Every 4 hours PRN, 2nd line for pain, Starting on Mon11/01/21 at 1603, Indications: PainIndications:Pain Given 11/03/2021 11:38 AM CDT 2 tablets Given 11/03/2021 7:28 AM CDT 2 tablets Given 11/03/2021 3:08 AM CDT 2 tablets Lactated Ringer's (LR) infusion 30 mL/hr, intravenous, Continuous, Starting on Mon11/01/21 at 1015, Pre-Op, New Bag 11/01/2021 12:32 PM CDT Rate/Dose Verify 11/01/2021 11:28 AM CDT 30 mL/ hr New Bag 11/01/2021 10:17 AM CDT 30 mL/hr 30 mL/hr ondansetron (ZOFRAN) injection 4 mg 4 mg, intravenous, Administer over 2 Minutes, Every 6 hours PRN, nausea, vomiting, if not tolerating PO, Starting on Mon11/01/21 at 1603, Indications: nausea and vomitingIndications:nausea and vomiting ondansetron ODT (ZOFRAN-ODT) disintegrating tablet 4 mg 4 mg, oral, Every 6 hours PRN, nausea, vomiting, Starting on Mon11/01/21 at 1603, Indications: nausea and vomitingIndications:nausea and vomiting pramipexole (MIRAPEX) tablet 0.125 mg 0.125 mg, oral, 3 times daily, First dose on Mon11/01/21 at 1645, Indications: Idiopathic Parkinsonism, Restless Legs SyndromeIndications:Idiopathic Parkinsonism,Restless Legs Syndrome Given 11/03/2021 7:29 AM CDT 0.125 mg Given 11/02/2021 8:08 PM CDT 0.125 mg Given 11/02/2021 5:59 PM CDT 0.125 mg propranoloL (INDERAL) tablet 20 mg 20 mg, oral, 2 times daily PRN, Tremor, Starting on Mon11/01/21 at 1603 Given 11/02/2021 7:53 AM CDT 20 mg senna-docusate (PERICOLACE) 8.6-50 mg per tablet 2 tablet 2 tablet, oral, 2 times daily, First dose on Mon11/01/21 at 2100, Hold for diarrhea., Indications: constipationIndications:constipation Given 11/03/2021 7:29 AM CDT 2 table ts Given 11/02/2021 8:08 PM CDT 2 tablets Given 11/02/2021 7:47 AM CDT 2 tablets sodium chloride 0.9% flush 0.5-20 mL 0.5-20 mL, intra-catheter, Every 8 hours scheduled, First dose on Mon11/01/21 at 1645, Flush volume based on line type and size. , Indications: FlushingIndications:Flushing Given 11/03/2021 5:13 AM CDT 10 mL Given 11/02/2021 8:08 PM CDT 10 mL Given 11/02/2021 6:03 PM CDT 10 mL sodium chloride 0.9% infusion 125 mL/hr, intravenous, Continuous, Starting on Mon11/01/21 at 1645 New Bag 11/02/2021 5:15 AM CDT 125 mL/hr 125 mL/hr New Bag 11/01/2021 8:03 PM CDT 125 mL/hr 125 mL/hr Restarted 11/01/2021 4:45 PM CDT 125 mL/hr 125 mL/hr spironolactone (ALDACTONE) tablet 25 mg 25 mg, oral, Daily, First dose on Mon11/02/21 at 0900 Given 11/03/2021 7:29 AM CDT 25 mg Given 11/02/2021 7:48 AM CDT 25 mg documented in this encounter Discontinued Medications Medication Sig Discontinue Reason Start Date End Da te biotin 10,000 mcg capsule Take by mouth Therapy completed 10/25/2021 traMADoL (ULTRAM) 50 mg tabletIndications:Hip arthritis,Spinal stenosis of lumbar region with neurogenic claudication,Cervical radiculopathy Take 0.5 tablets (25 mg total) by mouth every 6 (six) hours as needed for pain Stop Taking at Discharge 09/17/2021 11/03/2021 documented as of this encounter Historical Medications * This list may reflect changes made after this encounter. ascorbic acid (VITAMIN C) 500 mg tablet,chewable Take 500 mg by mouth daily 11/11/2021 added in this encounter Active and Recently Administered Medications Times are shown in CDT. Scheduled Medication Order 11/01/2021 11/02/2021 11/03/2021 acetaminophen (TYLENOL) tablet 1,000 mg (COMPLETED) 1,000 mg, oral, Once, On Mon11/01/21 at 1015, For 1 dose, Pre-Op, Indications: Pre-Emptive Analgesia 1017 (Given - Provider: Viktor Abad RN) apixaban (ELIQUIS) tablet 5 mg 5 mg, oral, 2 times daily, First dose on Mon11/01/21 at 2100, Indications: VTE Prophylaxis, VTE Prophylaxis Following Ortho Surgery 2001 (Given - Provider: Laureen Begum RN) 0748 (Given - Provider: Gi Gandara)2007 (Given - Provider: Laureen Begum RN) 07 (Given - Provider: Gi Gandara) ascorbic acid (VITAMIN C) tablet/chewable tablet 500 mg 500 mg, oral, Daily, First dose on Mon11/01/21 at 1645, Indications: Vitamin deficiency prevention 1717 (Not Given - Provider: Chrystal aDn, RN - Reason: Other - Comment: will start tomorrow) 0748 (Given - Provider: Gi Gandara) 0730 (Given - Provider: Gi Gandara) ceFAZolin (ANCEF) 1 gram/10 mL in sterile water (premix) 2,000 mg (COMPLETED) 2,000 mg, intravenous, at 400 mL/hr, Administer over 3 Minutes, Once, On Mon11/01/21 at 1015, For 1 dose, Pre-Op, Administer within 60 minutes of incision., Indications: Prophylaxis, Surgical 1205 (Given - Provider: Je Portillo CRNA) ceFAZolin (ANCEF) 2,000 mg/20 mL in sterile water (premix) 2,000 mg (COMPLETED) 2,000 mg, intravenous, at 400 mL/hr, Administer over 3 Minutes, Every 8 hours, First dose on Mon11/01/21 at 2000, For 2 doses, Beginning 8 hours after last dagoberto-operative dose., Indications: Prophylaxis, Surgical 2001 (Given - Provider: Laureen Begum, XU) 032 (Given - Provider: Laureen Begum RN) famotidine (PEPCID) tablet 20 mg 20 mg, oral, Daily, First dose (after last modification) on Mon11/01/21 at 1645, Indications: Heartburn 1718 (Not Given - Provider: Chrystal Dan, RN - Reason: Other - Comment: will start tomorrow) 0748 (Given - Provider: Gi Gandara) 0730 (Given - Provider: Gi Gandara) felodipine (PLENDIL) tablet 5 mg 5 mg, oral, Daily, First dose on Mon11/01/21 at 1645, Please use patients home supply of medication, pharmacy does not carry and we have no automatic substitution. The patient supplied medication of plendil 5mg needs to be tubed to pharmacy for verification. Do not crush, chew, cut, dissolve, open or otherwise manipulate tablet/capsule. 1716 (Not Given - Provider: Chrystal Dan RN - Reason: Medication not available) 1647 (Not Given - Provider: Gi Gandara - Reason: Medication not available) 0736 (Given - Provider: Gi Gandara) ferrous sulfate tablet 325 mg 325 mg (65 mg of elemental iron), oral, Daily with breakfast, First dose on Mon11/02/21 at 0800, Indications: Iron Deficiency Anemia, Anemia prevention 0748 (Given - Provider: Gi Gandara) 0730 (Given - Provider: Gi Gandara) furosemide (LASIX) tablet 40 mg 40 mg, oral, Daily, First dose on Mon11/01/21 at 1645 1719 (Not Given - Provider: Chrystal Dan RN - Reason: Other - Comment: will start tomorrow) 0748 (Given - Provider: Gi Gandara) 0730 (Given - Provider: Gi Gandara) morphine 10 mg, EPINEPHrine 0.3 mg, bupivacaine (MARCAINE) 50 mg in sodium chloride 0.9% 20 mL topical solution (COMPLETED) topical, Once, On Mon11/01/21 at 1015, For 1 dose, Intra-Op 1243 (Given - Provider: Puma Mckenzie MD - Comment: injected into surgical site prior to closure)171 (Canceled Entry - Provider: Chrystal Dan RN - Comment: given in OR) pramipexole (MIRAPEX) tablet 0.125 mg 0.125 mg, oral, 3 times daily, First dose on Mon11/01/21 at 1645, Indications: Idiopathic Parkinsonism, Restless Legs Syndrome 1648 (Not Given - Provider: Chrystal Dan RN - Reason: Other - Comment: will start tonight)192 (Given - Provider: Chrystal Dan RN - Comment: pt request) 0749 (Given - Provider: Gi Gandara)1759 (Given - Provider: Gi Gandara)2007 (Given - Provider: Laureen Begum RN) 0729 (Given - Provider: Gi Gandara) senna-docusate (PERICOLACE) 8.6-50 mg per tablet 2 tablet 2 tablet, oral, 2 times daily, First dose on Mon11/01/21 at 2100, Hold for diarrhea., Indications: constipation 2001 (Given - Provider: Laureen Begum RN) 0747 (Given - Provider: Gi Gandara)2007 (Given - Provider: Laureen Begum RN) 0729 (Given - Provider: Gi Gandara) sodium chloride 0.9% flush 0.5-20 mL 0.5-20 mL, intra-catheter, Every 8 hours scheduled, First dose on Mon11/01/21 at 1645, Flush volume based on line type and size. , Indications: Flushing 1719 (Not Given - Provider: Chrystal Dan RN - Reason: IV Infusing)2019 (Not Given - Provider: Laureen Begum RN - Reason: IV Infusing) 0512 (Not Given - Provider: Laureen Begum RN - Reason: IV Infusing)180 (Given - Provider: Gi Gandara)2007 (Given - Provider: Laureen Begum RN) 0513 (Given - Provider: Laureen Begum RN) spironolactone (ALDACTONE) tablet 25 mg 25 mg, oral, Daily, First dose on Mon11/02/21 at 0900 0748 (Given - Provider: Gi Gandara) 0729 (Given - Provider: iG Gandara) tranexamic acid (CYKLOKAPRON) 3,000 mg in sodium chloride 0.9% 100 mL irrigation solution (COMPLETED) irrigation, Once, On Mon11/01/21 at 1015, For 1 dose, Intra-Op, Indications: Prophylaxis, Surgical 1243 (Given - Provider: Puma Mckenzie MD - Comment: on field)1720 (Canceled Entry - Provider: Chrystal Dan RN - Comment: given in OR) Continuous Medication Order 11/01/2021 11/02/2021 11/03/2021 Lactated Ringer's (LR) infusion 30 mL/hr, intravenous, Continuous, Starting on Mon11/01/21 at 1015, Pre-Op, 1017 (New Bag - Provider: Viktor Abad RN)1128 (Rate/Dose Verify - Provider: Je Portillo CRNA)1231 (Paused - Provider: Je Portillo CRNA - Comment: Switch to gravity)1232 (New Bag - Provider: Je Portillo CRNA)1307 (Anesthesia Volume Adjustment - Provider: Je Portillo CRNA) 1726 (Due: Stopped) sodium chloride 0.9% infusion 125 mL/hr, intravenous, Continuous, Starting on Mon11/01/21 at 1645 1645 (Restarted - Provider: Chrystal Dan RN)2002 (New Bag - Provider: Laureen Begum, XU) 0515 (New Bag - Provider: Laureen Begum RN)0756 (Stopped - Provider: Gi Gandara) PRN Medication Order 11/01/2021 11/02/2021 11/03/2021 albuterol 2.5 mg /3 mL (0.083 %) nebulizer solution 2.5 mg 2.5 mg, nebulization, Every 6 hours PRN (manager social responsibility), wheezing, shortness of breath, Starting on Mon11/01/21 at 1605 bisacodyl EC (DULCOLAX EC) tablet 10 mg 10 mg, oral, Daily PRN, constipation, If no results 24 hours after milk of magnesia, Starting on Mon11/01/21 at 1603, Do not crush, chew, cut, dissolve, open or otherwise manipulate tablet/capsule. bupivacaine (MARCAINE) 0.25 % (2.5 mg/mL) preservative free injection (CANCELED) As needed, Starting on Mon11/01/21 at 1241, Intra-Op 1241 (Given - Provider: Puma Mckenzie MD) calcium carbonate (TUMS) chewable tablet 1,000 mg 1,000 mg (400 mg of elemental calcium), oral, 2 times daily PRN, indigestion, Starting on Mon11/01/21 at 1603, Indications: Hypocalcemia Prevention HYDROcodone-acetaminophen (NORCO) 5-325 mg per tablet 1 tablet 1 tablet, oral, Every 4 hours PRN, 1st line for pain, Starting on Mon11/01/21 at 1603, Indications: Pain 1646 (Given - Provider: Chrystal Dan RN)1815 (Given - Provider: Chrystal Dan RN) 1248 (Given - Provider: Gi Gandara)1758 (Given - Provider: Gi Gandara) 0715 (Not Given - Provider: Gi Gandara - Reason: Other - Comment: 2 given) HYDROcodone-acetaminophen (NORCO) 5-325 mg per tablet 2 tablet 2 tablet, oral, Every 4 hours PRN, 2nd line for pain, Starting on Mon11/01/21 at 1603, Indications: Pain 2250 (Given - Provider: Laureen Begum RN) 0323 (Given - Provider: Laureen Begum RN)0745 (Given - Provider: Gi Gandara)2250 (Given - Provider: Laureen Begum RN) 0308 (Given - Provider: Laureen Begum RN)0728 (Given - Provider: Gi Gandara)1138 (Given - Provider: Gi Gandara) magnesium hydroxide (MILK OF MAGNESIA) 80 mg/mL (33.3 mg/mL as elemental magnesium) oral suspension 30 mL 30 mL, oral, Daily PRN, constipation, Starting on Mon11/01/21 at 1603 mineral oil (FLEET MINERAL OIL) enema 1 enema 1 enema, rectal, Daily PRN, constipation, if no results 24 hours after bisacodyl, Starting on Mon11/01/21 at 1603, Indications: constipation ondansetron (ZOFRAN) injection 4 mg(Linked Group 1) 4 mg, intravenous, Administer over 2 Minutes, Every 6 hours PRN, nausea, vomiting, if not tolerating PO, Starting on Mon11/01/21 at 1603, Indications: nausea and vomiting ondansetron ODT (ZOFRAN-ODT) disintegrating tablet 4 mg(Linked Group 1) 4 mg, oral, Every 6 hours PRN, nausea, vomiting, Starting on Mon11/01/21 at 1603, Indications: nausea and vomiting oxyCODONE (ROXICODONE) tablet 5 mg 5 mg, oral, Every 4 hours PRN, 3rd line for pain, Starting on Mon11/01/21 at 1603, Indications: Pain povidone-iodine (BETADINE) 120 mL in sodium chloride 0.9% 1,000 mL irrigation (CANCELED) As needed, Starting on Mon11/01/21 at 1222, Intra-Op 1222 (Given - Provider: Puma Mckenzie MD - Comment: on field for irrigation) propranoloL (INDERAL) tablet 20 mg 20 mg, oral, 2 times daily PRN, Tremor, Starting on Mon11/01/21 at 1603 0753 (Given - Provider: Gi Gandara) sodium chloride 0.9% flush 0.5-20 mL 0.5-20 mL, intra-catheter, As needed, line care, Starting on Mon11/01/21 at 1603, Flush volume based on line type and size. Flush before and after each use. , Indications: Flushing sodium chloride 0.9% irrigation (CANCELED) As needed, Starting on Mon11/01/21 at 1242, Intra-Op 1242 (Given - Provider: Puma Mckenzie MD) Linked Groups Order Group 1: ondansetron ODT (ZOFRAN-ODT) disintegrating tablet 4 mgJump to med 4 mg, oral, Every 6 hours PRN, nausea, vomiting, Starting on Mon11/01/21 at 1603, Indications: nausea and vomiting Or ondansetron (ZOFRAN) injection 4 mgJump to med 4 mg, intravenous, Administer over 2 Minutes, Every 6 hours PRN, nausea, vomiting, if not tolerating PO, Starting on Mon11/01/21 at 1603, Indications: nausea and vomiting documented in this encounter Orders Medications Ordered That Alhaji ht Not Have Been Administered Count Last Ordered Date First Ordered Date albuterol 2.5 mg /3 mL (0.08 3 %) nebulizer solution 2.5 mg 1 11/01/2021 albuterol HFA (PROVENTIL HFA ,VENTOLIN HFA,PROAIR HFA) 90 mcg/actuation inhaler 2 puff 1 11/01/2021 bisacodyl EC (DULCOLAX EC) tablet 10 mg 1 0 11/01/2021 bupivacaine (MARCAINE) 0.25 % (2.5 mg/mL) preservative free injection 1 11/01/2021 calcium carbonate (TUMS) chana wable tablet 1,000 mg 1 11/01/2021 ceFAZolin (ANCEF) 1 gram/10 mL in sterile water (premix) 2,000 mg 1 11/01/2021 famotidine (PEPCID) tablet 20 mg 1 11/02/19 felodipine (PLENDIL) tablet 5 mg 1 11/02/19 fentaNYL (SUBLIMAZE) preserv ative free injection 25 mcg 1 11/01/2021 magnesium hydroxide (MILK OF MAGNESIA) 80 mg/mL (33.3 mg/mL as elemental magnesium) oral suspension 30 mL 1 11/01/2021 mineral oil (FLEET MINERAL O IL) enema 1 enema 1 11/01/2021 morphine 10 mg, EPINEPHrine 0.3 mg, bupivacaine (MARCAINE) 50 mg in sodium chloride 0.9% 20 mL topical solution 1 11/01/2021 naloxone (NARCAN) 0.4 mg/mL injection 0.04-0.4 mg 1 11/01/2021 NON FORMULARY (FOR INPATIENT USE) 1 022 ondansetron (ZOFRAN) injection 4 mg 2 11/01 ondansetron ODT (ZOFRAN-ODT) disintegrating tablet 4 mg 1 11/01/2021 oxyCODONE (ROXICODONE) tablet 5 mg 1 2021 povidone-iodine (BETADINE) 1 20 mL in sodium chloride 0.9% 1,000 mL irrigation 1 11/01/2021 sodium chloride 0.9% flush 0.5-20 mL 2 10/17 sodium chloride 0.9% irrigation 1 tranexamic acid (CYKLOKAPRON ) 1,000 mg/100 mL (10 mg/mL) in sodium chloride (premix) 1,000 mg 1 11/01/2021 tranexamic acid (CYKLOKAPRON ) 3,000 mg in sodium chloride 0.9% 100 mL irrigation solution 1 11/01/2021 General Supply Count Last Ordered Date First Or dered Date WALKER 1 11/02/2021 Diet Count Last Ordered Date First Orde red Date ADULT DISCHARGE DIET 1 11/02/2021 Nursing Count Last Ordered Date First Orde red Date DISCHARGE ACTIVITY 4 11/02/2021 DISCHARGE CALL PROVIDER 5 11/02/2021 DISCHARGE DRESSING 7 11/02/2021 DISCHARGE INSTRUCTIONS 1 11/02/2021 FOLLOW UP WITH ESTABLISHED PROVIDER 1 11/02 Transfer Count Last Ordered Date First Orde red Date TRANSFER PATIENT 1 10/26/2021 CORE MEASURES Count Last Ordered Date First Ord ered Date REASON FOR NO VTE PROPHYLAXIS AT ADMISSION 1 11/01/2021 documented in this encounter Care Teams Cloth Desizing Range Tender Relationship Specialty Start Date End Date Pepper Morgan MD PCP - General 09/16/16 Hank Garibay MD [address] [facility] [address] [place] [address] Surgeon Orthopedic Surgery 03/27/17 Jacky Murry MD [address] [facility] [address] [place] [address] Ophthalmology 03/27/17 Puma Mckenzie MD [address] [facility] [address] [place] [address] Surgeon Orthopedic Surgery 07/11/19 documented as of this encounter
--- OUTSIDE RECORDS SUMMARY | 2024-06-18 18:58 | XMS_ITS | Encounter Summary ---
Author Organization [facility] Address [address] [facility] [address] [facility] [address] [place] [id number] Care Team Providers Care Freight Booker Name Role Phone Pepper Morgan MD Primary Care Provider + [phone] Hank Garibay MD Unavailable [phone] Jacky Murry MD Unavailable [phone] Puma Mckenzie MD Unavailable [phone] Encounter Details Date Type Department Care Team (Late st Contact Info) Description 10/18/2021 Telephone [facility] [address] [place] [id number] Pepper Morgan MD [address] [place] [address] Social History Tobacco Use Types Packs/Day Years [...] file 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 Patient said she woke in the middle of the night with them. Patient said the hives are on her torso/stomach at this time. She said they have moved up under her bra and it itches. Patient does not know what has caused them. She took a Claritin this am and applied Ivarest and neither have helped. No available appts today and patient said she can't wait until tomorrow. Advised patient to go to urgent care for evaluation and she is agreeable and may go to [place]. * Telephone Encounter - Vickie Araujo - 10/18/2021 8:17 AM CDT Patient calling and last night she broke out in hives and she wants to know how to get rid of the itching. She is allergic to so many things. Should she take some benadryl? Cbn: [phone] documented in this encounter Plan of Treatment Not on file documented as of this encounter Visit Diagnoses Not on filedocumented in this encounter Care Teams Freight Booker Relationship Specialty Start Date End Date Pepper Morgan MD PCP - General 09/16/16 Hank Garibay MD [address] [facility] [address] [place] [address] [place] [address] Surgeon Orthopedic Surgery 03/27/17 Jacky Murry MD [address] [facility] [place] [address] Ophthalmology 03/27/17 Puma Mckenzie MD [address] [facility] [address] [place] [address] Surgeon Orthopedic Surgery 07/11/19 documented as of this encounter
--- OUTSIDE RECORDS SUMMARY | 2024-06-18 18:58 | XMS_ITS | Encounter Summary ---
Author Organization [facility] Address [address] [facility] [address] [place] [address] Care Team Providers Care Commercial Field Inspector Name Role Phone Pepper Morgan MD Primary Care Provider + [phone] Hank Garibay MD Unavailable [phone] Jacky Murry MD Unavailable [phone] Puma Mckenzie MD Unavailable [phone] Encounter Details Date Type Department Care Team (Late st Contact Info) Description 09/21/2021 Telephone [facility] Orthopedics and Sports Medicine [address] [facility] [address] [place] [address] Puma Mckenzie MD [address] [place] [address] [address] [place] [address] Social History Tobacco Use Types [...] on file 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 Surgery moved from 09/27 to 11/01. Due to scheduling conflict with pt'benjyly. If we get any cancellations for the week of 10/11 she would like to move up. documented in this encounter Plan of Treatment Not on file documented as of this encounter Visit Diagnoses Not on filedocumented in this encounter Care Teams Commercial Field Inspector Relationship Specialty Start Date End Date Pepper Morgan MD PCP - General 09/16/16 Hank Garibay MD [address] [place] [address] [address] [place] [address] Surgeon Orthopedic Surgery 03/27/17 Jacky Murry MD [address] [place] [address] [address] [place] [address] Ophthalmology 03/27/17 Puma Mckenzie MD [address] [facility] [address] [place] [address] Surgeon Orthopedic Surgery 07/11/19 documented as of this encounter
--- OUTSIDE RECORDS SUMMARY | 2024-06-18 18:58 | XMS_ITS | Encounter Summary ---
Author Organization [facility] Address [address] [place] [address] Phone Care Team Providers Care Inpatient Pharmacist Name Role Phone Pepper Morgan MD Primary Care Provider + [phone] Hank Garibay MD Unavailable [phone] Jacky Murry MD Unavailable [phone] Puma Mckenzie MD Unavailable [phone] Reason for Visit * Auth/Cert Specialty Diagnoses / Procedures Referred By Contac t Referred To Contact Referral ID Status Reason Start Date Expiration Date Visits Re quested Visits Authorized [id number] 1 1 Encounter Details Date Type Department Care Team (Latest Contact Info) Description 11/04/2021 10:00 AM CDT Home Care Visit 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 Gender Identity Not on file Sexual Orientation Not on file Occupation Industry Job Start Date Job End Date retired Not on file Not on file Not on file documented as of this encounter Last Filed Vital Signs Vital Sign Reading Time Taken Comments Blood Pressure 110/60 11/04/2021 11:05 AM CDT Pulse 78 11/04/2021 11:05 AM CDT Temperature 35.9 ??C (96.7 ??F) 11/04/2021 11:05 AM C DT Respiratory Rate 18 11/04/2021 11:05 AM CDT Oxygen Saturation 96% 11/04/2021 11:05 AM CDT Inhaled Oxygen Concentration - - Weight 81.6 kg (180 lb) 11/04/2021 11:05 AM CDT Height 152.4 cm (5') 11/04/2021 11:05 AM CDT Body Mass Index 35.15 11/04/2021 11:05 AM CDT documented in this encounter Miscellaneous Notes * Quality Review - Ilya Castro - 11/04/2021 10:30 AM CDT Select Data Recommendations: M1028 - Comorbidities and Co-existing Conditions ??? Check all that apply See OASIS Guidance Manualfor a complete list of relevant ICD-10 codes Documented Answer: Recommendation: 3 - None of the above Comments: This item needs to be answered M1033 - Risk for Hospitalization: Which of the following signs or symptoms characterize this patient as at risk for hospitalization? Documented Answer: 4 - Multiple emergency department visits (2 or more) in the past 6 months; 7 - Currently taking 5 or more medications; 8 - Currently reports exhaustion Recommendation: 4 - Multiple emergency department visits (2 or more) in the past 6 months; 7 - Currently taking 5 or more medications; 8 - Currently reports exhaustion; 9 - Other risk(s) not listed in 1 - 8 Comments: Patient had recent surgery M1810 - Current Ability to Dress Upper Body safely (with or without dressing aids) including undergarments, pullovers, front-opening shirts and blouses, managing zippers, buttons, and snaps Documented Answer: 1 - Able to dress upper body without assistance if clothing is laid out or handed to the patient. Recommendation: 2 - Someone must help the patient put on upper body clothing. Reason: Clinical documentation reflects a MAHC-10 score greater than or equal to 4-patient is at risk for falls. For the purposes of this OASIS item, assistance includes verbal cuing and/or supervision. M1860 - Ambulation/Locomotion: Current ability to walk safely, once in a standing position, or use a wheelchair, once in a seated position, on a variety of surfaces. Documented Answer: 2 - Requires use of a two-handed device (for example, walker or crutches) to walk alone on a level surface and/or requires human supervision or assistance to negotiate stairs or steps or uneven surfaces. Recommendation: 3 - Able to walk only with the supervision or assistance of another person at all times. Reason: Clinical documentation reflects a MAHC-10 score greater than or equal to 4-patient is at risk for falls. For the purposes of this OASIS item, assistance includes verbal cuing and/or supervision. M2020 - Management of Oral Medications: Patient's current ability to prepare and take all oral medications reliably and safely, including administration of the correct dosage at the appropriate times/intervals. Excludes injectable and IV medications. (NOTE: This refers to ability, not compliance orwillingness.) Documented Answer: 2 - Able to take medication(s) at the correct times if given reminders by another person at the appropriate times. Recommendation: 3 - Unable to take medication unless administered by another person. Comments: Patient is a falls risk and not able to safely access medications. If the patient requires assistance to access the medications where they are routinely stored and modification has not beenmade, the more appropriate response is three. ZZ1988 Mobility: Code the patient???s usual performance at SOC/VANI for each activity using the 6-point scale. If activity was not attempted at SOC/VANI, code the reason. Code the patient???s discharge goal(s) using the 6-point scale. Use of codes 07, 09, 10 or 88 is permissible to code discharge goal(s). BU1868.I.1Walk 10 feet: Once standing, the ability to walk at least 10 feet in a room, corridor, orsimilar space. If SOC/VANI performance is coded 07, 09, 10 or 88, skip to GI1933A, 1 step (curb) Documented Answer: 05. Setup or clean-up assistance ??? [place] sets up or cleans up; patient completes activity. [place] assists only prior to or following the activity. Recommendation: 04. Supervision or touching assistance ??? [place] provides verbal cues and/or touching/steadying and/or contact guard assistance as patient completes activity. Assistance may be provided throughout the activity or intermittently. Recommendation reason: Based on the documentation, human assistance such as verbal cues/steadying was required to completethis activity. 11/09/2021 THOMAS Grant Chart review and recommendations completed by: ALONA Velasquez * Home Health Visit Narrative - Carrie Christiansen RN - 11/04/2021 10:15 AM CDT group home assessment completed. V/S taken and recorder. Instructed patient on Home health, Advance Directives, HIPAA, frequency of visits for all disciplines involved in patient's care. Patient's Bill of Rights explained and given to patient. Signatures obtained. Initial teachings on medications, compliance and pain management were also given. Discussed and instructed patient and caregiver-Marilyn( daughter) on Emergency Preparedness at home. Patient and caregiver verbalized understanding. For her goals, patient states that she wants to be independent and not rely on someone. patient caregiver is her daughter Marilyn. Marilyn will be actively involved in patient's care. She is available anytime the patient needs her. Patient is alert and responsive and oriented x 3. Patient c/o back pain and c/o pain on the left lower extremity when ambulating. Due to these, patient requires assist with ADL's. SN instructed on non pharmacological ways of pain management such as rest, relaxation, breathing exercise. Also, instructed to take pain medicine at the onset of pain and not to wait until pain is unbearable to help control pain better. Dressing on Left hip surgical site is clean, dry and intact. Unable to observe/assess incision site.- Continue to keep the wound clean and dry for 5 days. May shower on the 5th day per MD order. Trace edema on BLE. Instructed that she needs to elevate her legs while sitting. Patient wears compression stockings to reduce edema. Patient is at risk for falls. Noted to have unsteady gait and balance. Patient ambulates with the use of a walker to help keep her steady and safe. Instructed to keep pathways well-lit, wear non skidshoes and secure all rugs and cords to prevent falls and injuries, Referred to PT to help improve strength and endurance and help control pain. Patient is incontinent of urine. Uses depends. Instructed patient to change undergarments after every incontinent episode to prevent skin breakdown. Patient is homebound due to Pain and impaired mobility post-op Left total hip arthroplasty is dependent on her walker for ambulation. Patient needs assistance for ADL's and IADL's. She is unable to leave home unassisted. She needs her daughter Marilyn to transport her when she has an appointment withher doctors. Instructed patient to call 911 in case of emergency. Patient and caregiver verbalized understanding. documented in this encounter Plan of Treatment Not on file documented as of this encounter Visit Diagnoses Not on filedocumented in this encounter Home Health Visit - Care Plan Visit Details Visit Type -SN OASIS Start o f Care Discipline -Longterm Problems Problem Description Start Date Status Goals Interve ntions Homebound Status Disciplines: Skilled Disciplines Patient's homebound status 11/04/2021 Active 1 goal linked to scheduled/documen azar intervention 1 goal intervention scheduled/documen azar in this visit Medications Disciplines: Longterm Management of home medications 11/04/2021 Active 1 goal linked to scheduled/documen azar intervention 2 goal interventions scheduled/documen azar in this visit Monitor patient's vital signs every home health visit Disciplines: SN, PT, OT, FINANCIAL REPORTING DIRECTOR, PRODUCTION CONTROL ANALYST, Skilled Disciplines Monitor patient's vital signs every [...] this visit Wound Care Disciplines: Core Disciplines 11/04/2021 Active 1 goal linked to scheduled/documen [...] visit during episode of care Description: Home intake clinician to measure vital signs during every home [...] control. Pain No Progression towards healing Description: Do not remove surgical wound dressing on the left hip until seen by MD Wound Care No Progression towards healing Wound Care No Interventions Intervention Associated Problem/Goal [...] Problem:Medications Goal:Understand and follow medication therapy Completed Patient and Caregiver instructed on medication administration, purpose, dosages, preparation, scheduling, side effects, food/drug interactions, and potential complications. Current regimen and compliance reviewed with Patient and Caregiver. Patient and Caregiver verbalize understanding of anticoagulation therapy purpose, possible side effects and complications and bleeding precautions. Medications taught Eliquis. Patient and caregiver verbalized understanding. Instruct on medication side effects Description: Instruct patient/caregiver to monitor for side effects and adverse reactions Problem:Medications Goal:Understand and follow medication therapy Completed Instructed patient/caregiver to monitor for side effects and adverse reactions of Eliquis such as bleeding.Patient verbalized understanding. Monitor Vital Signs Description: Monitor blood pressure, pulse, oxygen saturation, respirations Problem:Monitor patient's vital signs every home health visit Goal:Measure vital signs during every home health visit during episode of care Completed Educate Patient on Infection Prevention Description: Instruct patient on signs and symptoms of infection IE: fever, odor, change in color, increased amount of drainage, purulent drainage, warmth. Problem:Infection Prevention Goal:Verbalize signs of infection Completed Instructed patient and caregiver to keep wound dressing in place. Instructed patient on the s/s of infection such as increased in drainage, swelling, pain, redness, warmth. Patient and caregiver verbalized understanding. Instruct Fall Prevention Description: Instruct patient/caregiver in methods to prevent falls Problem:Safety concerns Goal:Demonstrate use of safety precautions Completed Instructed patient/caregiver in methods to prevent falls. Assess safety Description: Assess patient safety Problem:Safety concerns Goal:Demonstrate use of safety precautions Completed Instruct on pain management techniques Description: Instruct in pharmacologic and nonpharmacologic pain management techniques. Problem:Pain Goal:Report that pain has been reduced or controlled Completed Instructed in pharmacologic and nonpharmacologic pain management techniques.Patient and caregiver verbalized understanding. Skilled assessment wound Description: Full wound assessment including measurement weekly. Wound assessment each visit Problem:Wound Care Goal:Progression towards healing Completed Unable to observe/ assess incision site on the left hip- MD order to not remove dressing on the left hip for 5 days and may take a shower after 5 days. Perform dressing change Problem:Wound Care Goal:Progression towards healing Completed Unable to assess incision site on the left hip. Site is covered with a dressing. documented in this encounter Care Teams Inpatient Pharmacist Relationship Specialty Start Date End Date Pepper Morgan MD PCP - General 09/16/16 Hank Garibay MD [address] [facility] [address] [place] [address] Surgeon Orthopedic Surgery 03/27/17 Jacky Murry MD [address] [facility] [address] [place] [address] Ophthalmology 03/27/17 Puma Mckenzie MD [address] [facility] [address] [place] [address] Surgeon Orthopedic Surgery 07/11/19 documented as of this encounter
--- OUTSIDE RECORDS SUMMARY | 2024-06-18 18:58 | XMS_ITS | Encounter Summary ---
Author Organization [facility] Address [address] [facility] [place] [address] Care Team Providers Care Heater Operator Helper Name Role Phone Pepper Morgan MD Primary Care Provider [phone] Hank Garibay MD Unavailable [phone] Jacky Murry MD Unavailable [phone] Puma Mckenzie MD Unavailable [phone] Encounter Details Date Type Department Care Team (Late st Contact Info) Description 10/12/2021 Telephone [facility] [address] [place] [id number] Pepper Morgan MD [address] [place] [address] Social History Tobacco Use Types Packs/Day Years [...] file 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 Gender Identity Not on file Sexual Orientation Not on file Occupation Industry Job Start Date Job End Date retired Not on file Not on file Not on file documented as of this encounter Miscellaneous Notes * Telephone Encounter - Milana Fuentes RN - 10/12/2021 3:23 PM CDT Called and spoke with the pt She has been coughing and short of breath for 2 days Worried it might be her heart Pt used the inhaler last night and it helped But it did not help today Pt states that the left leg is swollen nothing new She had had back pain but it is not new Pt states that she was really bad last night but the inhaler helped Pt did not want to go to the er Pt scheduled to see the n/p at 130 Pt will go to the er if the symptoms become more severe Pt verbalized understanding of the above statement * Telephone Encounter - Vickie Araujo - 10/12/2021 3:04 PM CDT Patient calling, she has been coughing and it is a dry cough and she is wandering if it is her heart. She just cannot get her breath and keeps coughing and it feels like no air is getting out. She has a inhaler and she never uses it but she did try it and she did go back to sleep. She did take a water pill this am and she was better she takes it every morning so she is just wandering if it is herheart. Her back feels tight in the upper back. Cbn: [id number] documented in this encounter Plan of Treatment Not on file documented as of this encounter Visit Diagnoses Not on filedocumented in this encounter Care Teams Heater Operator Helper Relationship Specialty Start Date End Date Pepper Morgan MD PCP - General 09/16/16 Hank Garibay MD [address] [facility] [address] [address] Surgeon Orthopedic Surgery 03/27/17 Jacky Murry MD [address] [place] [address] [address] [address] Ophthalmology 03/27/17 Puma Mckenzie MD [address] [facility] [address] [address] Surgeon Orthopedic Surgery 07/11/19 documented as of this encounter
--- OUTSIDE RECORDS SUMMARY | 2024-06-18 18:58 | XMS_ITS | Encounter Summary ---
Author Organization [facility] Address [address] [place] [address] Care Team Providers Care Research Investigator Name Role Phone Pepper Morgan MD Primary Care Provider + [phone] Hank Garibay MD Unavailable [phone] Jacky Murry MD Unavailable [phone] Puma Mckenzie MD Unavailable [phone] Encounter Details Date Type Department Care Team (Late st Contact Info) Description 11/01/2021 11:28 AM CDT Anesthesia Event [facility] Operating Room [address] [place] [address] [place] [address] [facility] [address] [place] [address] Hugh Lackey MD [address] [place] [id number] Anesthesia Record Procedure Summary Procedure Name Responsible Anesthesiologist Anesthesia Start Time Anesthesia Stop Time Left Total Hip Arthroplasty- Anterior Approach (Left: Hip) Madi Silverio MD 11/01/21 1128 11/01/21 1313 Events Date Time Event Comment 11/01/2021 0940 1128 An Start 1128 In Room 1128 An Start Data 1140 Spinal Placed 1140 Anesthesia Ready 1144 Quick Note Placed on 6L/mi n oxygen via simple facemask for rest of case unless otherwise noted in subsequent Q-notes. Disregard any other intraoperative oxygen administration beyond this point that may have been auto-populated unless otherwise noted in subsequent Q-notes. 1214 Proc Start 1214 Incision Start 1306 Proc Fin 1307 an stop data 1309 Out of Room 1313 An Stop 1313 Handoff to RN I completed my handoff to the receiving nurse during which we: 1. Patient identified 2. Responsible provider identified 3. Pertinent medical history reviewed 4. Procedure type and surgical course discussed 5. Intraoperative anesthetic management and any significant issues discussed 6. Expectations and concerns for postop period discussed 7. Questions solicited from receiving nurse 8. Patient disposition at the time of handoff: PACU Meds Name Total bupivacaine 0.5 % PF intrathecal 3 mL propofol 532.56 mg ondansetron 4 mg lidocaine 2 % PF 60 mg ceFAZolin (ANCEF) 1 gram/10 mL in steril e water (premix) 2,000 mg 2,000 mg phenylephrine 350 mcg Lactated Ringer's (LR) infusion 1,200 mL * Agents Name O2 * Blood No blood administrations on file. Lines, Drains, and Airways Type Details Placement Removal RETIRED Surgical Site 07/10/19; 1135; Ri ght; Hip/trochanter; 11/03/21; Removal date unknown/not present on admission 07/10/19 1135 by Palma Rueda RN 11/03/21 0000 by Raquel Allen PT Peripheral IV Placement Date: 11/01/21; Placement Time: 1005; Catheter Size: 20 G; Orientation: Posterior, Right; Location: Forearm; Removal Date: 11/09/21; Removal Reason: Not present on admission 11/01/21 1005 by Viktor Abad RN 11/09/21 0000 by Dariela Ontiveros RN RETIRED Surgical Site 11/01/21; 1248; Le ft; Hip/trochanter; 02/18/22; Removal date unknown/not present on admission 11/01/21 1248 by Héctor Pang RN 02/18/22 0000 by Katlyn Harris RN documented in this encounter Social History Tobacco Use Types Packs/Day Years Used Date Smoking Tobacco: Former Cigarettes 30 1 1981 Smokeless Tobacco: Never Alcohol [...] on file 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 Gender Identity Not on file Sexual Orientation Not on file Occupation Industry Job Start Date Job End Date retired Not on file Not on file Not on file documented as of this encounter OR Notes * Anesthesia Postprocedure Evaluation - Je Portillo CRNA - 11/01/2021 3:43 PM CDT Patient: Tess Benedict Procedure Summary Date: 11/01/21 Room / Location: [facility] OR [address] [place] [address] OPERATING ROOM Anesthesia Start: 1128 Anesthesia Stop: 1313 Procedure: Left Total Hip Arthroplasty- Anterior Approach (Left Hip) Diagnosis: Primary osteoarthritis of left hip (Primary osteoarthritis of left hip [M16.12]) Providers: Puma Mckenzie MD Responsible Provider: Madi Silverio MD Anesthesia Type: general/TIVA, spinal ASA Status: 3 Anesthesia Type: general/TIVA, spinal Last vitals BP 126/61 Pulse 72 Temp 36.3 ??C (97.4 ??F) (Temporal) Resp 16 SpO2 100% Anesthesia Post Evaluation Patient location during evaluation: PACU Patient participation: complete - patient participated Level of consciousness: fully awake Pain management: adequate Airway patency: adequate Cardiovascular status: acceptable Respiratory status: acceptable Hydration status: acceptable Nausea/Vomiting status: none No complications documented. * Anesthesia Procedure Notes - Je Portillo CRNA - 11/01/2021 12:10 PM CDTAssociated Order(s): Spinal Block Spinal Block Patient location: OR Start time: 11/01/2021 11:35 AM End time: 11/01/2021 11:40 AM Reason for block: primary anesthetic Staff: Supervising anesthesiologist: Madi Silverio MD Placed by: MANAGER MBA:Je Portillo CRNA Procedure prep: Preprocedure checklist: patient identified, procedure contraindications assessed, procedure consent, surgical consent, IV checked, risks, benefits and alternatives discussed, monitors and equipment checked and timeout performed Patient position: sitting Procedure performed while patient: awake Monitoring: oximetry and blood pressure Prep solution: chlorhexadine/alcohol PPE: provider hat/mask, sterile gloves and sterile drape Skin infiltrated with lidocaine 1%: yes Spinal: Approach: midline Introducer used: no Location: L3-4 Other location: L4/L5 Spinal injection: CSF demonstrated and no aspiration of heme Number of attempts: 3 Spinal Needle: Needle type: Selena Needle gauge: 22 G Needle length: 9 cm Assessment: Sensory deficit - left: full eval pending Sensory deficit - right: full eval pending Events: patient tolerated procedure well with no complications Transient paresthesias encountered on first attempts. Paresthesias immediately resolving upon immediate needle retraction. No paresthesias noted during successful attempt or on injection. * Anesthesia Preprocedure Evaluation - Jonathan Rizzo MD PhD - 11/01/2021 9:39 AM CDT Images from the original note were not included. Anesthesia Evaluation Tess Benedict is a 85 y.o. female Procedure(s): Left Total Hip Arthroplasty- Anterior Approach Depuy- Actis, Omnitrac, Aquamantys, 1 liter beta rinse, Pt to stay (Rom conf 10/28 BS) Pre-Op Diagnosis Codes: * Primary osteoarthritis of right hip [M16.11] HISTORY Past Medical History Information obtained from: patient and chart. Neurological Neuro/Psych system: negative Cardiovascular + Hypertension + Current valvular disease - MR - mild; + Atrial fibrillation/flutter - Current Rhythm: atrial fibrillation. Respiratory Respiratory system: negative Hepatic / Heme Hepatic/Heme system: negative Gastrointestinal + GERD - on daily therapy. Renal / Renal/ system: negative Musculoskeletal/Pain + Osteoarthritis Endocrine / Other + Obesity (BMI >30) + Cancer history- skin cancer only. Patient Active Problem List Diagnosis ??? Hereditary essential tremor ??? Chronic GERD ??? 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 ??? Restless legs syndrome ??? Bariatric surgery status ??? Insomnia, persistent ??? Chronic pain disorder ??? Knee joint replacement status, bilateral ??? History of malignant melanoma ??? Constipation due to opioid therapy ??? Atrial fibrillation (CMS/HCC) (HCC) ??? Left facial swelling ??? Primary osteoarthritis of left hip ??? Facial swelling ??? Angio-edema ??? Allergic rhinitis due to allergen ??? Cough Past Medical History: Diagnosis Date ??? Allergic [...] The successful right hip replacement Dr. Mckenzie OB History No obstetric history on file. Allergies Allergen Reactions ??? Celecoxib Anaphylaxis ??? Scopolamine Mental status changes Delirium postop after joint replacement due to this medicine ??? Sulfa (Sulfonamide Antibiotics) Anaphylaxis ??? Amlodipine Swelling ??? Lisinopril Swelling ??? Trazodone Swelling Tongue ??? Cymbalta [Duloxetine] Fatigue Sleepiness, tiredness possibly related to 20 mg morning dose of this medicine discontinued 11/30/2020 ??? Sinemet [Carbidopa-Levodopa] Other (See comments) Night hines Taking? Last Dose Start Date End Date Provider albuterol HFA (Proventil HFA) 90 mcg/actuation inhaler 10/14/21 -- Jacqueline Fuller NP Inhale 2 puffs every 6 (six) hours as needed for wheezing or shortness of breath apixaban (ELIQUIS) 5 mg tablet 05/31/21 -- Pepper Morgan MD Take 1 tablet (5 mg total) by mouth 2 (two) times a day ascorbic acid (ascorbic acid with kim hips) 500 mg tablet,chewable -- -- Latasha Flannery MD cetirizine (ZyrTEC) 10 mg tablet 09/17/21 -- Pepper Morgan MD Take 1 tablet (10 mg total) by mouth nightly cholecalciferol (VITAMIN D-3) 2000 unit tablet -- -- Latasha Flannery MD felodipine (PLENDIL) 5 mg 24 hr tablet 09/17/21 -- Pepper Morgan MD Take 1 tablet (5 mg total) by mouth daily Notes: Advised to resume after emergency room visit for her usual annual edema after suspending Claritin day of surgery furosemide (LASIX) 40 mg tablet 08/23/21 -- Pepper Morgan MD Take 1 tablet (40 mg total) by mouth daily Notes: 06/03/21 - Dose increased to 40mg/day. Pt will use her Furosemide 20mg tablets taking 2 tablets daily until gone then she will call to fill this 40m tablet prescription. pantoprazole DR (PROTONIX) 20 mg EC tablet 08/23/21 -- Pepper Morgan MD Take 1 tablet (20 mg total) by mouth daily With the largest meal polyethylene glycol (MIRALAX) 17 gram packet 05/26/20 -- Pepper Morgan MD Take 1 packet (17 g total) by mouth daily Patient taking differently: Take 17 g by mouth daily as needed pramipexole (MIRAPEX) 0.125 mg tablet 08/23/21 -- Pepper Morgan MD Take 1 tablet (0.125 mg total) by mouth 3 (three) times a day Take at 9:00 a.m., 3:00 p.m., 9:00 p.m. propranoloL (INDERAL) 20 mg tablet 08/23/21 -- Pepper Morgan MD Take 1 tablet (20 mg total) by mouth 2 (two) times a day as needed (Tremor) senna-docusate (Senna-S) 8.6-50 mg 04/21/21 -- Jacqueline Fuller NP Take 1 tablet by mouth daily Patient taking differently: Take 2 tablets by mouth every evening spironolactone (Aldactone) 25 mg tablet 08/23/21 -- Pepper Morgan MD Take 0.5 tablets (12.5 mg total) by mouth daily Take 1/2 tablet daily Patient taking differently: Take 25 mg by mouth daily Take 1/2 tablet daily traMADoL (ULTRAM) 50 mg tablet 09/17/21 -- Pepper Morgan MD Take 0.5 tablets (25 mg total) by mouth every 6 (six) hours as needed for pain Notes: Dispense the oblong tablets that she can cut in half No current outpatient medications on file. Social History Tobacco Use Smoking Status Former Smoker ??? Packs/day: 2.00 ??? Years: 30.00 ??? Pack years: 60.00 ??? Quit date: 1981 ??? Years since quittin.3 Smokeless Tobacco Never Used Substance and Sexual Activity Alcohol Use Not Currently Substance and Sexual Activity Drug Use Never Family History Problem Relation Age of Onset ??? Cancer Other Family history of Cancer, unknown; ??? Arthritis Other Family history of Arthritis; ??? Abdominal Aortic Aneurysm Father ??? COPD Father There were no vitals filed for this visit. PT: No results found for requested labs within last 720 hours. INR: No results found for requested labs within last 720 hours. APTT: No results found for requested labs within last 720 hours. Hgb A1C: 10/25/2021: 5.7 % (H) CBC RBC: 10/25/2021: 4.89 M/cumm RDW: No results found for requested labs within last 720 hours. MCHC: 10/25/2021: 31.6 g/dL (L) MCH: 10/25/2021: 27.2 pg MCV: 10/25/2021: 86.1 fL Hct: 10/25/2021: 42.1 % Hgb: 10/25/2021: 13.3 g/dL WBC: 10/25/2021: 7.9 K/cumm MPV: 10/25/2021: 8.7 fL (L) Platelets: 10/25/2021: 347 K/cumm RDW CV: 10/25/2021: 14.6 % RDW Sd: 10/25/2021: 45.9 fL BMP Glucose: 10/25/2021: 93 mg/dL Calcium: 10/25/2021: 9.3 mg/dL Sodium: 10/25/2021: 138 mmol/L Potassium: 10/25/2021: 3.7 mmol/L CO2: 10/25/2021: 30 mmol/L Chloride: 10/25/2021: 99 mmol/L BUN: 10/25/2021: 13 mg/dL Creatinine: 10/25/2021: 0.73 mg/dL DOS Physical Exam Medical history, medications, and allergies reviewed. Attestation: I endorse the findings of the anesthesia pre-evaluation assessment dated: 11/01/2021. Airway Exam: Mallampati: II Cervical ROM: FROM TM distance: >4 Cardiovascular Exam: Rate: regular Rhythm: regular Pulmonary Exam: LCTA, bilat Dental Exam: Upper dentures and lower dentures Current state: Patient's current state is cooperative and interactive. Anesthesia Plan ASA 3 My patient is approved for the Anesthesia Controlled Medication protocol when under care of a MANAGER MBA Planned anesthesia: General/TIVA and spinal Comments: no narcotics if possible - severe PONV - no scopolamine Induction: Induction: intravenous. Postoperative Plan: Postoperative administration opioids intended. No postoperative mechanical ventilation intended. Patient's planned disposition post procedure is Floor. Informed Consent: Discussed plan with attending and MANAGER MBA. Anesthesia plan and risks discussed with patient. Consent and Attending signature: I and/or my designee have discussed the anesthesia plan, benefits, possible alternatives, parental presence at time of induction (if indicated), and clinically relevant risks that may include dental injury, unintentional awareness, and/or other complications. The patient and/or parent/legal guardian understand, and agree to proceed. All questions answered. documented in this encounter Plan of Treatment Not on file documented as of this encounter Procedures Procedure Name Priority Date/Time Associated Diagnosis Comments ANESTHESIA SPINAL BLOCK Routine 11/01/2021 11:35 AM CDT documented in this encounter Results * Spinal Block (11/01/2021 11:35 AM CDT) Narrative Je Portillo CRNA - 11/01/2021 11:35 AM CDT Je Portillo CRNA ? 11/01/2021 12:12 PM Spinal Block Patient location: OR Start time: 11/01/2021 11:35 AM End time: 11/01/2021 11:40 AM Reason for block: primary anesthetic Staff: Supervising anesthesiologist: Madi Silverio MD Placed by: MANAGER MBA:Je Portillo CRNA Procedure prep: Preprocedure checklist: patient identified, procedure contraindications assessed, procedure consent, surgical consent, IV checked, risks, benefits and alternatives discussed, monitors and equipment checked and timeout performed Patient position: sitting Procedure performed while patient: awake Monitoring: oximetry and blood pressure Prep solution: chlorhexadine/alcohol PPE: provider hat/mask, sterile gloves and sterile drape Skin infiltrated with lidocaine 1%: yes Spinal: Approach: midline Introducer used: no Location: L3-4 Other location: L4/L5 Spinal injection: CSF demonstrated and no aspiration of heme Number of attempts: 3 Spinal Needle: Needle type: Selena Needle gauge: 22 G Needle length: 9 cm Assessment: Sensory deficit - left: full eval pending Sensory deficit - right: full eval pending Events: patient tolerated procedure well with no complications Transient paresthesias encountered on first attempts. Paresthesias immediately resolving upon immediate needle retraction. No paresthesias noted during successful attempt or on injection. Madi Silverio MD ANESTHESIA ORDERABLES Fi nal Result documented in this encounter Visit Diagnoses Not on filedocumented in this encounter Administered Medications Inactive Administered Medications - up to 3 most recent administrations Medication Order MAR Action Action Date Dose Rate Site bupivacaine (MARCAINE) 0.5 % (5 mg/mL) preservative free injection other, As needed, Starting on Mon11/01/21 at 1140, Anesthesia Intra-op Given 11/01/2021 11:40 AM CDT 3 mL ceFAZolin (ANCEF) 1 gram/10 mL in sterile water (premix) 2,000 mg 2,000 mg, intravenous, at 400 mL/hr, Administer over 3 Minutes, Once, On Mon11/01/21 at 1015, For 1 dose, Pre-Op, Administer within 60 minutes of incision., Indications: Prophylaxis, SurgicalIndications:Prophylaxis , Surgical Given 11/01/2021 12:05 PM CDT 2,000 mg Lactated Ringer's (LR) infusion 30 mL/hr, intravenous, Continuous, Starting on Mon11/01/21 at 1015, Pre-Op, New Bag 11/01/2021 12:32 PM CDT Rate/Dose Verify 11/01/2021 11:28 AM CDT 30 mL/ hr New Bag 11/01/2021 10:17 AM CDT 30 mL/hr 30 mL/hr lidocaine (XYLOCAINE) 20 mg/mL (2 %) preservative free injection intravenous, As needed, Starting on Mon11/01/21 at 1142, Anesthesia Intra-op Given 11/01/2021 11:42 AM CDT 60 mg ondansetron (ZOFRAN) injection intravenous, Administer over 2 Minutes, As needed, Starting on Mon11/01/21 at 1128, Anesthesia Intra-op Given 11/01/2021 11:28 AM CDT 4 mg phenylephrine (ANA-SYNEPHRINE) injection intravenous, As needed, Starting on Mon11/01/21 at 1215, Anesthesia Intra-op Given 11/01/2021 12:51 PM CDT 150 mc g Given 11/01/2021 12:42 PM CDT 100 mcg Given 11/01/2021 12:15 PM CDT 100 mcg propofoL (DIPRIVAN) 10 mg/mL IV intravenous, Continuous PRN, Starting on Mon11/01/21 at 1142, Anesthesia Intra-op Rate/Dose Change 11/01/2021 12:51 PM CDT 60 mcg/kg/min 30.456 mL/hr Rate/Dose Change 11/01/2021 12:13 PM CDT 75 mcg/kg/min 38. 07 mL/hr Rate/Dose Change 11/01/2021 11:56 AM CDT 85 mcg/kg/min 43. 146 mL/hr documented in this encounter Care Teams Research Investigator Relationship Specialty Start Date End Date Pepper Morgan MD PCP - General 09/16/16 Hank Garibay MD [address] [place] [address] [address] [facility] [address] [place] [address] Surgeon Orthopedic Surgery 03/27/17 Jacky Murry MD [address] [facility] [address] [facility] [address] [place] [address] Ophthalmology 03/27/17 Puma Mckenzie MD 4 [facility] [address] [facility] [address] [place] [address] Surgeon Orthopedic Surgery 07/11/19 documented as of this encounter
--- OUTSIDE RECORDS SUMMARY | 2024-06-18 18:58 | XMS_ITS | Encounter Summary ---
Author Organization [facility] Address [address] [facility] [address] [place] [address] Care Team Providers Care Pitching Coach Name Role Phone Pepper Morgan MD Primary Care Provider [phone] Hank Garibay MD Unavailable [phone] Jacky Murry MD Unavailable [phone] Puma Mckenzie MD Unavailable [phone] Encounter Details Date Type Department Care Team (Late st Contact Info) Description 09/16/2021 Telephone [facility] [address] [place] [id number] Pepper Morgan MD [address] [place] [address] Social History Tobacco Use Types Packs/Day Years [...] on file 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 * Telephone Encounter - Pepper Morgan MD - 09/16/2021 7:22 PM CDT She needs a sick call with us Monday, bring all of her medications to the visit * Telephone Encounter - Yvette Zapata RN - 09/16/2021 3:11 PM CDT KMS I spoke with pt, no trouble swallowing or breathing. Just has a raspy voice . ++Please see the last TWO entries in this message et advise on if preop appt needed et also about the raspy voice. Thanks * Telephone Encounter - Vickie Araujo - 09/16/2021 2:45 PM CDT Patient was in the er Monday morning with a swollen tongue. They kept her overnight for observation and she was given a epipen. Her throat is real raspy and she is wandering if that could be causing her swollen tongue. Her surgery had to be rescheduled and she would like to get this taking care of before surgery. Cbn: [phone] * Telephone Encounter - Yvette Zapata RN - 09/16/2021 1:58 PM CDT See previous message. Hip surgery rescheduled. Does pt need a preop appt?(she was recently in hospital). Per Dr Mckenzie, he is ok either way-wants [facility] to decide if preop clearance again needed. * Telephone Encounter - Vickie Araujo - 09/16/2021 1:34 PM CDT Sadia calling from Dr Mckenzies office they had to reschedule patients surgery hip replacement due to being in the hospital she is rescheduled for September 27 didn't know if you needed to see her again before surgery? Cbn: [phone] documented in this encounter Plan of Treatment Not on file documented as of this encounter Visit Diagnoses Not on filedocumented in this encounter Care Teams Pitching Coach Relationship Specialty Start Date End Date Pepper Morgan MD PCP - General 09/16/16 Hank Garibay MD 4 [facility] [address] [place] [address] Surgeon Orthopedic Surgery 03/27/17 Jacky Murry MD 4 [facility] [address] [place] [address] Ophthalmology 03/27/17 Puma Mckenzie MD 4 [facility] [address] [place] [address] Surgeon Orthopedic Surgery 07/11/19 documented as of this encounter
--- OUTSIDE RECORDS SUMMARY | 2024-06-18 18:58 | XMS_ITS | Encounter Summary ---
Author Organization [facility] Address [address] [place] [address] Care Team Providers Care Maintenance Mechanic Engine Name Role Phone Pepper Morgan MD Primary Care Provider + [phone] Hank Garibay MD Unavailable [phone] Jacky Murry MD Unavailable [phone] Puma Mckenzie MD Unavailable [phone] Encounter Details Date Type Department Care Team (Late st Contact Info) Description 11/01/2021 11:15 AM CDT - 11/01/2021 1:40 PM CDT Surgery [facility] Operating Room [address] [place] [address] Puma Mckenzie MD [address] [place] [address] [address] Left Total Hip Arthroplasty- Anterior Approach Surgery Details Date/Time Status Location OR Service Patient Class Case Class Case Type Trauma Case? 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 Gender Identity Not on file Sexual Orientation Not on file Occupation Industry Job Start Date Job End Date retired Not on file Not on file Not on file documented as of this encounter Last Filed Vital Signs Vital Sign Reading Time Taken Comments Blood Pressure 130/63 11/01/2021 1:40 PM CDT Pulse 63 11/01/2021 1:40 PM CDT Temperature 36.3 ??C (97.4 ??F) 11/01/2021 1:12 PM CD T Respiratory Rate 18 11/01/2021 1:40 PM CDT Oxygen Saturation 100% 11/01/2021 1:40 PM CDT Inhaled Oxygen Concentration - - Weight 84.6 kg (186 lb 8.2 oz) 11/01/2021 9:44 A M CDT Height 152.4 cm (5') 11/01/2021 9:44 AM CDT Body Mass Index 36.43 11/01/2021 9:44 AM CDT documented in this encounter Discharge Summaries * Susy Hummel PA - 11/02/2021 8:14 AM CDT Inpatient Discharge Summary BRIEF OVERVIEW Admitting Provider: Puma Mckenzie MD Discharge Provider: Puma Mckenzie MD Primary Care Physician at Discharge: Pepper Morgan MD [phone] Admission Date: 11/01/2021 Discharge Date: 11/02/2021 Primary [...] Center 11/18/2021 3:30 PM Kathie Cox PA [facility] Specialty 01/24/2022 10:20 AM Pepper Morgan MD [facility] PSA Cosigned by Puma Mckenzie [...] was ALWAYS EXCELLENT! Please call SCU at [phone] if you have any questions regarding your care. Wishing you continued improvement during your recovery. Your Surgical Care Unit Team Jaylene Lancaster, Yahaira Hummel, Kasia, Farnaz, Crissy, Laureen Shepherd Debbie, Sheila, Lamika, Judy, Lindsey, Jaspal Rojas Jocelyn, Jacey, Darcie, Corazon, Saadia. * Attachments The following attachments cannot be sent through Care Everywhere. * Iron Supplements (By mouth) (Palauan) * Hydrocodone/Acetaminophen (By mouth) ([place]auan) * Laxative, Stimulant Combination (By mouth) ([place]auan) documented in this encounter Medications at Time [...] this encounter Progress Notes * Leah Hess, ROTARY SAW OPERATOR - 11/03/2021 10:43 AM CDT Physical Therapy 11/03/21 0927 PT Last Visit Session Type Treatment Safe [...] Home with family;Home with intermittent assist * Tong Aquino, OT - 11/03/2021 9:54 AM CDT Occupational [...] Independent UE Dressing: Assistance with Thread RUE;Thread LUE;mechanic recovery head;Pull down in back;Fasteners;Pull around back LE [...] 11/03/2021 7:42 AM CDT * Leah Hess, ROTARY SAW OPERATOR - 11/02/2021 3:25 PM CDT Physical Therapy [...] this the discharge summary Recommendation/Plan PT Recommendation/Plan Senior Care Facility * Mireya Irby, OT - 11/02/2021 9:21 AM CDT Occupational Therapy Initial Evaluation 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 CHF (congestive heart failure) (CMS/HCC) (HCC) Cough DVT (deep venous thrombosis) (CMS/HCC) ([facility]) 1976 upper left arm [...] foot pain 03/1999 ? gout Malignant melanoma (CMS/HCC) ([facility]) Malignant melanoma; Comments: APO 01/13/2014 - Menopause Motion sickness Obesity PONV (postoperative nausea and vomiting) Restless leg Right carpal tunnel syndrome Superficial basal cell carcinoma 2002 Cancer, basal Cell Tobacco use 1-2ppd x 35yrs quit 07-11/02/21 0845 General Chart Reviewed Yes Session Type [...] walker;4-Wheeled walker;Single point cane Home ADL Equipment Nude Model Additional Comments Sister has a sockaid she can borrow. Basket for wheeled walker Prior Function Level of Ford Independent with ADLs;Independent functional transfers;Independent with ambulation [...] Pain Orientation Left Cognition Overall Cognitive Status WF Orientation Oriented X4 (person, place, time, situation) [...] this the discharge summary Recommendation/Plan OT Recommendation Senior Care Facility OT Frequency 3-5x/wk Monday-Monday, Sat. prn [...] - 11/02/2021 9:17 AM CDT Physical Therapy 11/02/21 0823 General Chart Reviewed Yes Session Type Evaluation [...] uses her fww) Prior Function Level of Ford Independent with ADLs;Independent functional transfers;Independent with ambulation [...] this the discharge summary Recommendation/Plan PT Recommendation/Plan Senior Care Facility PT Recommendation/Plan Comments pt has significant [...] (from Physical Therapy) Active Problems Problem: PT [facility] Start Date: 11/02/21 Goal Start Date Expected End Date End Date PT LT - [facility] 1 11/02/21 11/09/21 -- Goal Details: Pt to require/be min assist with bed mobility consistently to increase functional mobility. Goal Start Date Expected End Date End Date PT LTG - [facility] 2 11/02/21 11/09/21 -- Goal Details: Pt to require/be min assist with all transfers consistently to increase functional mobility and safety. Goal Start Date Expected End Date End Date PT [facility] - [facility] 3 11/02/21 11/09/21 -- Goal Details: Pt to ambulate mod>min assist 50' with a fww consistently, to increase functional mobility and safety. Goal Start Date Expected End Date End Date PT [facility] - [facility] 4 11/02/21 11/09/21 -- Goal Details: Pt [...] liter beta rinse, Pt to stay (Rom esteves 10/28 BS) Source Note - Susy Hummel [...] a telephone or video visit during the [address] emergency to the patient. After being given [...] applied drsg. Patient and belongings wheeled to novelty printing machine operator for filler picker in personal vehicle. documented in this [...] minimal assist Outcome: Progressing Flowsheets (Taken 11/03/2021 0929) Assist Level: CGA Note: Assist for DORCAS falkmanuela, pt's daughter and patient educated in sequencing [...] will decrease Outcome: Progressing * Plan of Jennifer - Gi Gandara - 11/02/2021 5:00 PM [...] Interview Note Information Obtained From: Patient (11/02/21 3330) Admission Source: Scheduled surgery Impression: Left hip Plan Includes: Assessment and DC planning Primary Source of Transportation: Does the patient need discharge transport arranged?: No (11/01/21 1987) Health Insurance Coverage: Medicare A/B and BCBS Prescription Coverage: yes Pharmacy: [facility] Primary Care Provider: Pepper Morgan MD Prior to Admission: Primary Caregiver: Self Support System: Family members Home Care Services: Yes Type of Home Care Services: Home therapies Home care service name and phone number: [facility] to start PT on 11/05. Durable Medical Equipment: Walker (wheeled) Living Arrangements: Alone Type of Residence: Private residence Steps in home? : Yes, Inside home Number of steps inside:: 2 steps (11/02/21 132) SDOH: Transportation Needs: Not on file Financial [...] Behavioral Health Services: Behavioral Health Services: No (11/02/211323) Patient expects to be Discharged to: Private residence, (11/02/211323) Additional Information: DC plan dicussed with patient. Goal is to return home alone. Lives in a condo and her dtr will be her ride home. Has a WW. [facility] to start PT on 11/05. Barrier to [...] to inpt. Referral placed in [facility] to [facility] for [facility] PT. Jake MCNAIR [facility] and Chrystal AUGUSTIN made aware. Patient is refusing SNF. Awaiting acceptance with start of care date. 1055-[facility] accepted with start of care 11/05. Jake MCNAIR [place] in patient room informing her of acceptance. [...] total hip arthroplasty Surgeon: Puma Mckenzie MD Dental Cream Maker: Estephanie Garcia Anesthesia: Spinal Estimated blood loss: 250cc Complications: None Condition: Stable to PACU Implanted component: Implant Name Type Inv. Item Serial No. Whitesmith Lot No. LRB No. Used Action [employer] [id number] PINNACLE 52MM 36MM HIP NEUTRAL LINER ACETABULAR ALTRX STERILE LATEX FREE - [id number] [employer] [id number] [place] 52mm 36mm Hip Neutral Liner AcetabularAltrx Sterile Latex Free Dep[employer] [id number] Left 1 Implanted [employer] PINNACLE 52MM SECTOR HIP SHELL ACETABULAR GRIPTION STERILE LATEX FREE [id number] - [id number] [employer] [place] 52mm Sector Hip Shell Acetabular Gription Sterile Latex Free [id number] Depuy [employer] [id number] Left 1 Implanted [employer] [id number] ACTIS COLLAR HIP 7 HIGH OFFSET STEM FEMORAL - [id number] [employer] [id number] Actis Collar Hip 7 High Offset Stem Femoral Depuy [employer] Inc [id number] Left 1 Implanted [employer] ARTICUL/SASCHA 36MM CEMENTLESS HIP +1.5MM 12/14 TAPER HEAD FEMORAL LATEX FREE [id number] - [id number] [employer] Articul/sascha 36mm Cementless Hip +1.5mm 12/14 Taper HeadFemoral Latex Free [id number] Depuy [employer] [id number] Left 1 Implanted [employer] PINNACLE 6.5MM 35MM ACETABULAR CANCELLOUS SCREW BONE STERILE [id number] - [id number] [employer] [place] 6.5mm 35mm Acetabular Cancellous Screw Bone Sterile [id number] Depuy Orth[employer] [id number] Left 1 Implanted Technique: I met the [...] 10/25/2021 1:15 PM CDT Communication sent via Re.Mu chat to PCP and sleep medicine with score of 4 on the STOP BANG questionaire as requested by anesthesia * Perioperative Nursing Note - Evelyn Devries RN - 10/25/2021 12:20 PM CDT Pt is vaccinated/booster, pt is having pre-op labs at [facility] 10/25/21 * Pre-Procedure Instructions - Evelyn Devries RN - 10/25/2021 11:46 AM CDT We are pleased that you and your doctor have chosen [facility] for your surgery. We hope that the [...] mg tablet ?? Use no make-up, nail beninese, lotions, oils or powders on your skin. [...] Results * eGFR (11/03/2021 5:09 AM CDT) [facility] Signature eGFR 91 mL/min/1. 73 m2 [facility] [...] LAB BLOOD ORDERABLE S Final Result [facility] ([place]) 1 [facility] Department [place] [address] * (ABNORMAL) CBC without differential (11/03/2021 5:09 [...] - 33.3 pg [facility] MCHC 32.5 32.3 - 35.7 g/dL [facility] RDW CV 14.6 11.1 - 14.9 % [facility] RDW SD 45.8 35.7 - 48.1 fL [facility] NRBC abs 0.00 0.00 - 0.01 K/cumm [facility] Blood 11/03/2021 5:09 AM CDT 11/03/2021 5:51 AM CDT Kathie BRUCE LAB BLOOD ORDERABLE S Final Result [facility] 1 [facility] [place] [address] * (ABNORMAL) Basic metabolic panel (11/03/2021 5:09 AM CDT) Sodium 135 135 - 145 [...] 2017. Calcium 9.2 8.5 - 10.3 mg/dL [facility] Blood 11/03/2021 5:09 AM CDT 11/03/2021 5:43 AM CDT us Kathie BRUCE LAB BLOOD ORDERABLE S Final Result [facility] 1 [facility] Department [place] [address] * eGFR (11/02/2021 6:48 AM CDT) eGFR 88 mL/min/1. 73 m2 [facility] ([place]) Comment: Interpretive Data Reference Interval Normal ?>/= [...] LAB BLOOD ORDERABLE S Final Result [facility] ([place]) 1 [facility] Department [place] [address] * (ABNORMAL) CBC without differential (11/02/2021 6:48 AM CDT) Pathologist [facility] WBC 13.8(H) 3.8 - 9.9 K/cumm [facility] Hgb 11.9 11.9 - 15.5 g/dL [facility] Hct 37.5 35.6 - 45.5 [...] RDW SD 45.7 35.7 - 48.1 fL [facility] NRBC abs 0.00 0.00 - 0.01 K/cumm [facility] Blood 11/02/2021 6:48 AM CDT 11/02/2021 7:08 AM CDT Kathie BRUCE LAB BLOOD ORDERABLE S Final Result [facility] Department [place] [address] * (ABNORMAL) Basic metabolic panel (11/02/2021 6:48 AM CDT) Sodium 134(L) 135 - 145 mmol/L [facility] Potassium, pl 4.2 3.3 - 4.9 mmol/L [facility] Chloride 101 97 - 110 mmol/L [facility] CO2 27 22 - 32 mmol/L [facility] Anion gap 6 2 - 15 mmol/L [facility] BUN 12 8 - 25 mg/dL [facility] Creatinine 0.64 0.60 - 1.10 mg/dL [facility] Glucose 122 70 - 199 mg/dL [facility] ([place]) Comment: Interpretive Data Fasting glucose >/= 126 [...] Calcium 8.6 8.5 - 10.3 mg/dL [facility] Blood 11/02/2021 6:48 AM CDT 11/02/2021 7:07 AM CDT Kathie BRUCE LAB BLOOD ORDERABLE S Final Result [facility] [address] [place] [address] Department [place] [address] * Surgical pathology (11/01/2021 1:39 PM CDT) Tissue (Bone Fragment(s),) 11/01/2021 12:23 PM CDT Narrative PATHOLOGY [facility] - 11/04/2021 12:31 PM CDT EPIC results best viewed via link to PDF [facility] Department of Pathology [address] [place] [address] Note to Patients: This report may contain [...] Report Patient Name: ??TESS BENEDICT I. Address: ?? [address], ??[place], [place] ??[address] Gender: ??F : ??1935 (Age: 85) Service: ??Surgery Location: ??[facility] Hospital #: ??[id number] Patient Type: ??[facility] Accession # ?[id number] Taken: ??11/01/2021 Received: ??11/01/2021 Accessioned: ??11/01/2021 Reported: [...] is bisected revealing no subchondral gross lesions. Solar Energy Specialist sections are submitted in one cassette after decalcification. ??Raad Mann M.D./Josef Vinson REPORT IMAGES AND SCANNED DOCUMENTS, IF INCLUDED, ONLY VIEWABLE IN PDF VERSION OF REPORT The performance characteristics of some immunohistochemical stains, fluorescence in-situ hybridization tests and immunophenotyping by flow cytometry cited in this report (if any) were determined by the Surgical Pathology Department at [facility] as part of an ongoing corporate quality engineer program and in compliance with federally mandated [...] characteristics determined by the Surgical Pathology Department [facility]. ??It has not been cleared or approved by the U. S. Food and Drug Administration. Note for decalcified specimens: This assay has not been validated on decalcified tissues. Results should be interpreted with caution given the possibility of false negativity on decalcified specimens Puma Mckenzie MD LAB PATHOLOGY ORDERABLES Final Result PATHOLOGY [facility] [address] [place] [address] * XR Pelvis Ortho View (11/01/2021 1:32 [...] PM T: ??11/01/2021 1:48 PM Report ID: [id number] Reading Location: ??[id number] Procedure Note Klaus Reddy MD - 11/01/2021 [...] Klaus Reddy M.D. MF: JEANNE Report ID: [id number] Reading Location: [id number] Kathie BRUCE IMG XR PROCEDURES F inal [...] AM T: ??11/02/2021 9:29 AM Report ID: [id number] Reading Location: ??[id number] Procedure Note Ilya Antonio MD - 11/02/2021 [...] signed by Ilya MADISON: LOS Report ID: [id number] Reading Location: [id number] Puma Mckenzie MD IMG XR PROCEDURES Final Result * aPTT (11/01/2021 10:03 AM CDT) aPTT 33 27 - 37 sec [facility] ([place]) Comment: Interpretive data Heparin therapeutic range: 60-94 seconds Range based on correlation with therapeutic heparin activity range of 0.3-0.7 units/ml. Current interpretive data was last revised on 2019. Blood 11/01/2021 10:0 3 AM CDT 11/01/2021 10:05 AM CDT Puma Mckenzie MD LAB BLOOD ORDERABLES Fin al Result Performing Organization Address City/[facility]/ZIP Co de Phone Number [facility] ([place]) [address] [facility] [employer] [address] * Protime-INR (11/01/2021 10:03 AM CDT) PT 12.6 9.5 - 13.6 sec [facility] ([place]) INR 1.1 0.9 - 1.2 [facility] ([place]) Comment: Interpretive data Oral anticoagulant therapeutic ranges: Venous thromboembolism prophylaxis or treatment: 2.0-3.0 CARDIOLOGY Standard range: 2.0-3.0 High-intensity range: 2.5-3.5 Refer to indication-specific guidelines for appropriate target ranges for prosthetic heart valve replacement. Current interpretive data was last revised on 2019. Blood 11/01/2021 10:0 3 AM CDT 11/01/2021 10:05 AM CDT Puma Mckenzie MD LAB BLOOD ORDERABLES Fin al Result Performing Organization Address [facility] Co de Phone Number [facility] ([place] [address] [facility] [employer] [place] [address] * Potassium, whole blood (11/01/2021 10:03 AM CDT) Potassium, bld 4.1 3.3 - 4.9 mmol/L [facility] ([place]) Comment: Interpretive Data Unable to assess hemolysis. ??Invitro hemolysis causes falsely elevated potassium. Current Interpretive Data was last revised on 2020. Blood 11/01/2021 10:0 3 AM CDT 11/01/2021 10:05 AM CDT Hugh Lackey MD LAB BLOOD ORDERABLES F inal Result Performing Organization Address City/[facility]/ZIP Co de Phone Number [facility] ([place]) [address] [facility] [employer] [place] [address] documented in this encounter Visit Diagnoses Diagnosis Primary osteoarthritis of left hip- Primary Primary osteoarthritis of left hip documented in this encounter Admitting Diagnoses Diagnosis Primary osteoarthritis of left hip documented in this encounter Administered Medications Inactive Administered Medications - up to 3 most recent administrations Medication Order MAR Action Action Date Dose Rate Site albuterol 2.5 mg /3 mL (0.083 %) nebulizer solution 2.5 mg 2.5 mg, nebulization, Every 6 hours PRN (correspondence specialist), wheezing, shortness of breath, Starting on Mon11/01/21 [...] Given 11/02/2021 7:48 AM CDT 500 mg bupivacaine (MARCAINE) 0.25 % (2.5 mg/mL) preservative free injection As needed, Starting on Mon11/01/21 at 1241, Intra-Op Given 11/01/2021 12:41 PM CDT 30 mL Surgical Site famotidine (PEPCID) tablet 20 mg 20 mg, [...] 10:17 AM CDT 30 mL/hr 30 mL/hr morphine 10 mg, EPINEPHrine 0.3 mg, bupivacaine (MARCAINE) 50 mg in sodium chloride 0.9% 20 mL topical solution topical, Once, On Mon11/01/21 at 1015, For 1 dose, Intra-Op Given 11/01/2021 12:43 PM CDT 21.3 mL Surgical Site ondansetron (ZOFRAN) injection 4 mg 4 mg, intravenous, Administer over 2 Minutes, Every 6 hours PRN, nausea, vomiting, if not tolerating PO, Starting on Mon11/01/21 at 1603, Indications: nausea and vomitingIndications:nausea and vomiting ondansetron ODT (ZOFRAN-ODT) disintegrating tablet 4 mg 4 mg, oral, Every 6 hours PRN, nausea, vomiting, Starting on Mon11/01/21 at 1603, Indications: nausea and vomitingIndications:nausea and vomiting povidone-iodine (BETADINE) 120 mL in sodium chloride 0.9% 1,000 mL irrigation As needed, Starting on Mon11/01/21 at 1222, Intra-Op Given 11/01/2021 12:22 PM CDT 1,120 mL Surgical Site pramipexole (MIRAPEX) tablet 0.125 mg 0.125 mg, [...] 4:45 PM CDT 125 mL/hr 125 mL/hr sodium chloride 0.9% irrigation As needed, Starting on Mon11/01/21 at 1242, Intra-Op Given 11/01/2021 12:42 PM CDT 1,000 mL Surgical Site spironolactone (ALDACTONE) tablet 25 mg 25 mg, oral, Daily, First dose on Mon11/02/21 at 0900 Given 11/03/2021 7:29 AM CDT 25 mg Given 11/02/2021 7:48 AM CDT 25 mg tranexamic acid (CYKLOKAPRON) 3,000 mg in sodium chloride 0.9% 100 mL irrigation solution irrigation, Once, On Mon11/01/21 at 1015, For 1 dose, Intra-Op, Indications: Prophylaxis, SurgicalIndications:Prophylaxis, Surgical Given 11/01/2021 12:43 PM CDT 100 mL Surg ical Site documented in this encounter Discontinued Medications Medication [...] Begum RN) 0748 (Given - Provider: Gi Gandara)2006 (Given - Provider: Laureen Begum RN) 0729 (Given - Provider: Gi Gandara) ascorbic acid (VITAMIN C) tablet/chewable tablet 500 mg 500 mg, oral, Daily, First dose on Mon11/01/21 at 1645, Indications: Vitamin deficiency prevention 1717 (Not Given - Provider: Chrystal Dan RN [...] Prophylaxis, Surgical 2001 (Given - Provider: Laureen Begum RN) 320 (Given - Provider: Laureen Begum RN) famotidine (PEPCID) tablet 20 mg 20 mg, oral, Daily, First dose (after last modification) on Mon11/01/21 at 1645, Indications: Heartburn 1718 (Not Given - Provider: Chrystal Dan RN [...] cut, dissolve, open or otherwise manipulate tablet/capsule. 171 (Not Given - Provider: Chrystal Dan RN [...] Comment: injected into surgical site prior to closure)1719 (Canceled Entry - Provider: Lamika J. Sy, RN - Comment: given in OR) pramipexole (MIRAPEX) tablet 0.125 mg 0.125 mg, oral, 3 times daily, First dose on Mon11/01/21 at 1645, Indications: Idiopathic Parkinsonism, Restless Legs Syndrome 1648 (Not Given - Provider: Chrystal Dan RN - Reason: Other - Comment: will start tonight)1921 (Given - Provider: Chrystal Dan RN - Comment: pt request) 0749 (Given - Provider: Gi Gandara)175 (Given - Provider: Gi Gandara)2007 (Given - Provider: Laureen Begum RN) 07 (Given - Provider: Gi Gandara) senna-docusate (PERICOLACE) [...] Laureen Begum RN - Reason: IV Infusing) 05 (Not Given - Provider: Laureen Begum RN - Reason: IV Infusing)180 (Given - Provider: Gi Gandara)2007 (Given - Provider: Laureen Begum RN) 0513 (Given - Provider: Laureen Begum RN) spironolactone (ALDACTONE) tablet 25 mg 25 mg, oral, Daily, First dose on Mon11/02/21 at 0900 0748 (Given - Provider: Gi Gandara) 0729 (Given - Provider: Gi Gandara) tranexamic acid (CYKLOKAPRON) 3,000 mg in [...] to gravity)1232 (New Bag - Provider: Je Protillo CRNA)1307 (Anesthesia Volume Adjustment - Provider: Je Portillo CRNA) 1726 (Due: Stopped) sodium chloride 0.9% infusion 125 mL/hr, intravenous, Continuous, Starting on Mon11/01/21 at 1645 1645 (Restarted - Provider: Chrystal Dan RN)2002 (New Bag - Provider: Laureen Begum RN) 0515 (New Bag - Provider: Laureen Begum RN)0756 (Stopped - Provider: Gi Gandara) PRN Medication Order 11/01/2021 11/02/2021 11/03/2021 albuterol 2.5 mg /3 mL (0.083 %) nebulizer solution 2.5 mg 2.5 mg, nebulization, Every 6 hours PRN (correspondence specialist), wheezing, shortness of breath, Starting on Mon11/01/21 [...] Count Last Ordered Date First Ordered Date acetaminophen (TYLENOL) tablet 1,000 mg 1 0 11/01/2021 albuterol 2.5 mg /3 mL (0.08 3 %) nebulizer solution 2.5 mg 1 11/01/2021 albuterol HFA (PROVENTIL HFA ,VENTOLIN HFA,PROAIR HFA) 90 mcg/actuation inhaler 2 puff 1 11/01/2021 apixaban (ELIQUIS) tablet 5 mg 1 11/01/2021 ascorbic acid (VITAMIN C) ta blet/chewable tablet 500 mg 1 11/01/2021 bisacodyl EC (DULCOLAX EC) tablet 10 mg 1 0 11/01/2021 calcium carbonate (TUMS) chana wable tablet 1,000 mg 1 11/01/2021 ceFAZolin (ANCEF) 1 gram/10 mL in sterile water (premix) 2,000 mg 1 11/01/2021 ceFAZolin (ANCEF) 2,000 mg/2 0 mL in sterile water (premix) 2,000 mg 1 11/01/2021 famotidine (PEPCID) tablet 20 mg 2 11/02/19 22 felodipine (PLENDIL) tablet 5 mg 2 11/02/19 22 fentaNYL (SUBLIMAZE) preserv ative free injection 25 mcg 1 11/01/2021 ferrous sulfate tablet 325 mg 1 11/01/2021 furosemide (LASIX) tablet 40 mg 1 2 HYDROcodone-acetaminophen (N ORCO) 5-325 mg per tablet 1 tablet 1 11/01/2021 HYDROcodone-acetaminophen (N ORCO) 5-325 mg per tablet 2 tablet 1 11/01/2021 Lactated Ringer's (LR) infusion 1 2 magnesium hydroxide (MILK OF MAGNESIA) 80 mg/mL (33.3 mg/mL as elemental magnesium) oral suspension 30 mL 1 11/01/2021 mineral oil (FLEET MINERAL O [place]) enema 1 enema 1 11/01/2021 naloxone (NARCAN) 0.4 mg/mL injection 0.04-0.4 mg 1 11/01/2021 NON FORMULARY (FOR INPATIENT USE) 1 022 ondansetron (ZOFRAN) injection 4 mg 2 11/01 ondansetron ODT (ZOFRAN-ODT) disintegrating tablet 4 mg 1 11/01/2021 oxyCODONE (ROXICODONE) tablet 5 mg 1 2021 pramipexole (MIRAPEX) tablet 0.125 mg 1 propranoloL (INDERAL) tablet 20 mg 1 2021 senna-docusate (PERICOLACE) 8.6-50 mg per tablet 2 tablet 1 11/01/2021 sodium chloride 0.9% flush 0.5-20 mL 3 10/17 sodium chloride 0.9% infusion 1 11/01/2021 spironolactone (ALDACTONE) tablet 25 mg 1 0 11/01/2021 tranexamic acid (CYKLOKAPRON ) 1,000 mg/100 mL (10 mg/mL) in sodium chloride (premix) 1,000 mg 1 11/01/2021 General Supply Count Last Ordered [...] 11/01/2021 documented in this encounter Care Teams Maintenance Mechanic Engine Relationship Specialty Start Date End Date Pepper Morgan MD PCP - General 09/16/16 Hank Garibay MD [address] [place] [address] DR [place]YLTON [address] [address] Surgeon Orthopedic Surgery 03/27/17 Jacky Murry MD [address] [facility] [address] WARNER Sheridan [address] [place] [address] Ophthalmology 03/27/17 Puma Mckenzie MD [address] [facility] [address] WARNER [address] [place] [address] Surgeon Orthopedic Surgery 07/11/19 documented as of this encounter
--- OUTSIDE RECORDS SUMMARY | 2024-06-18 18:58 | XMS_ITS | Encounter Summary ---
Author Organization [facility] Medical Group Address [address] [facility] [address] [place] [address] Care Team Providers Care Afloat Cryptologic Manager Name Role Phone Pepper Morgan MD Primary Care Provider + [phone] Hank Garibay MD Unavailable [phone] Jacky Murry MD Unavailable [phone] Puma Mckenzie MD Unavailable [phone] Reason for Visit * Reason Comments Cough Encounter Details Date Type Department Care Team (Latest Contact Info) Description 10/14/2021 1:30 PM CDT Office Visit [facility] [address] [place] [id number] Jacqueline Fuller, SALESPERSON SHEET MUSIC [address] [place] [address] Cough (Primary Dx); Seasonal allergic rhinitis due to other allergic trigger Social History Tobacco Use Types Packs/Day Years [...] on file 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 Gender Identity Not on file Sexual Orientation Not on file Occupation Industry Job Start Date Job End Date retired Not on file Not on file Not on file documented as of this encounter Last Filed Vital Signs Vital Sign Reading Time Taken Comments Blood Pressure 118/74 10/14/2021 1:36 PM CDT Pulse 70 10/14/2021 1:36 PM CDT Temperature 36.4 ??C (97.5 ??F) 10/14/2021 1:36 PM CD T Respiratory Rate - - Oxygen Saturation 95% 10/14/2021 1:36 PM CDT Inhaled Oxygen Concentration - - Weight - - Height - - Body Mass Index - - documented in this encounter Patient Instructions * Patient Instructions* Jacqueline Fuller NP - 10/14/2021 1:30 PM CDT Images from the original note were not included. Patient Education Allergic Rhinitis CHANGER FIXER: Allergic rhinitis , or hay fever, is swelling of the inside of your nose. The swelling is a reaction to allergens in the air. An allergen can be anything that causes an allergic reaction. Allergies to weeds, grass, trees, or mold often cause seasonal allergic rhinitis. Indoor dust mites, cockroaches, pet dander, or mold can also cause allergic rhinitis. Common signs and symptoms include the following: ?? Sneezing ?? Nasal congestion ?? Runny nose ?? Itchy nose, eyes, or mouth ?? Red, watery eyes ?? Postnasal drip (nasal drainage down the back of your throat) ?? Cough or frequent throat clearing ?? Feeling tired or lethargic ?? Dark circles under your eyes Call 911 for the following: ?? You have chest pain or shortness of breath. Seek care immediately if: ?? You have severe pain. ?? You cough up blood. Contact your healthcare provider if: ?? You have a fever. ?? You have ear or sinus pain, or a headache. ?? Your symptoms get worse, even after treatment. ?? You have yellow, green, brown, or bloody mucus coming from your nose. ?? Your nose is bleeding or you have pain inside your nose. ?? You have trouble sleeping because of your symptoms. ?? You have questions or concerns about your condition or care. Treatment: ?? Antihistamines help reduce itching, sneezing, and a runny nose. Some antihistamines can make yousleepy. ?? Nasal steroids help decrease inflammation in your nose. ?? Decongestants help clear your stuffy nose. ?? Immunotherapy may be needed if your symptoms are severe or other treatments do not work. Immunotherapy is used to inject an allergen into your skin. At first, the therapy contains tiny amounts of the allergen. Your healthcare provider will slowly increase the amount of allergen. This may help your body be less sensitive to the allergen and stop reacting to it. You may need immunotherapy for weeks or longer. Manage allergic rhinitis: The best way to manage allergic rhinitis is to avoid allergens that can trigger your symptoms. Any of the following may help decrease your symptoms: ?? Rinse your nose and sinuses with a salt water solution or use a salt water nasal spray. This will help thin the mucus in your nose and rinse away pollen and dirt. It will also help reduce swellingso you can breathe normally. Ask your healthcare provider how often to rinse your nose. ?? Reduce exposure to dust mites. Wash sheets and towels in hot water every week. Cover your pillows and mattresses with allergen-free covers. Limit the number of stuffed animals and soft toys your child has. Wash your child's toys in hot water regularly. Vacuum weekly and use a vacuum industrial sweeper cleaner withan air filter. If possible, get rid of carpets and curtains. These collect dust and dust mites. ?? Reduce exposure to pollen. Keep windows and doors closed in your house and car. Stay inside whenair pollution or the pollen count is high. Run your air conditioner on recycle, and change air filters often. Shower and wash your hair before bed every night to rinse away pollen. ?? Reduce exposure to pet dander. If possible, do not keep cats, dogs, birds, or other pets. If youdo keep pets in your home, keep them out of bedrooms and carpeted rooms. Bathe them often. ?? Reduce exposure to mold. Do not spend time in basements. Choose artificial plants instead of live plants. Keep your home's humidity at less than 45%. Do not have ponds or standing water in your home or yard. ?? Do not smoke. Avoid others who smoke. Ask your healthcare provider for information if you currently smoke and need help to quit. Follow up with your healthcare provider as directed: Write down your questions so you remember to ask them during your visits. ?? 2017 [employer] Information is for End User's use only and may not be sold, redistributed or otherwise used for commercial purposes. All illustrations and images included in CareNotes?? are the copyrighted property of [employer]. or [employer]. The above information is an lab aide only. It is not intended as medical advice for individual conditions or treatments. Talk to your doctor, nurse or pharmacist before following any medical regimen to see if it is safe and effective for you. documented in this encounter Ordered Prescriptions Prescription Sig Dispense Quantity Refills Last Filled Start Date End Date albuterol HFA (Proventil HFA) 90 mcg/actuation inhalerIndications :Cough Inhale 2 puffs every 6 (six) hours as needed for wheezing or shortness of breath 6.7 g 10/14/2021 2 documented in this encounter Progress Notes * Jacqueline Fuller NP - 10/14/2021 1:30 PM CDT Subjective/Objective Patient ID: Tess Benedict is a 85 y.o. female. Chief Complaint Cough HPI She developed a cough, that is worse at night She states better the next day after cough started Then yesterday afternoon started coughing again She has been using Mucinex, claritin in the am and zyrtec at night She had an inhaler she used which helped, but she has run out No recent ill contacts She has had covid and flu Review of Systems Constitutional: Negative for chills and fever. HENT: Positive for postnasal drip. Negative for congestion, ear discharge, ear pain, rhinorrhea, sinus pressure, sinus pain and sore throat. Respiratory: Positive for cough, shortness of breath (with cough ) and wheezing (at night ). Negative for chest tightness. Gastrointestinal: Negative for constipation, diarrhea, nausea and vomiting. Genitourinary: Negative for difficulty urinating. Musculoskeletal: Positive for arthralgias. Neurological: Negative for dizziness and light-headedness. Physical Exam Vitals and nursing note reviewed. Constitutional: Appearance: Normal appearance. HENT: Head: Normocephalic and atraumatic. Right Ear: Tympanic membrane, ear canal and external ear normal. Left Ear: Tympanic membrane, ear canal and external ear normal. Nose: Nose normal. Mouth/Throat: Mouth: Mucous membranes are moist. Pharynx: No posterior oropharyngeal erythema. Cardiovascular: Rate and Rhythm: Normal rate and regular rhythm. Heart sounds: Normal heart sounds. Pulmonary: Effort: Pulmonary effort is normal. Breath sounds: Normal breath sounds. Skin: General: Skin is warm and dry. Neurological: Mental Status: She is alert and oriented to person, place, and time. Psychiatric: Mood and Affect: Mood normal. Behavior: Behavior normal. Assessment/Plan Diagnoses and all orders for this visit: Cough (R05.9) (Primary) Assessment & Plan: Patient presents with cough x 2 days [...] to call should symptoms worsen or persist. Orders: - POC Influenza A/B, COVID-19 antigen - albuterol HFA (Proventil HFA) 90 mcg/actuation inhaler; Inhale 2 puffs every 6 (six) hours as needed for wheezing or shortness of breath Seasonal allergic rhinitis due to other allergic trigger (J30.89) Assessment & Plan: Patient presents with cough and post nasal drip x 2 days with concern for underlying allergic rhinitis. She was tested for flu and covid given her cough and associated SOB with cough. They however, were negative. Symptom management encouraged. Patient is to call should symptoms worsen or persist. Cosigned by Pepper Morgan MD at 10/14/2021 3:16 PM CDT documented in this encounter Miscellaneous Notes * Assessment & Plan Note - Jacqueline Fuller NP - 10/14/2021 1:50 PM CDT Associated Problem(s): Allergic rhinitis due to allergen (Resolved 12/08/2022) Patient presents with cough and post nasal drip x 2 days with concern for underlying allergic rhinitis. She was tested for flu and covid given her cough and associated SOB with cough. They however, were negative. Symptom management encouraged. Patient is to call should symptoms worsen or persist. * Assessment & Plan Note - Jacqueline Fuller NP - 10/14/2021 1:48 PM CDT Associated Problem(s): Cough (Resolved 01/24/2022) Patient presents with cough x 2 days [...] to call should symptoms worsen or persist. documented in this encounter Plan of Treatment Not on file documented as of this encounter Procedures Procedure Name Priority Date/Time Associated Diagnosis Comments POC INFLUENZA A/B, COVID-19 ANTIGEN Routine 10/14/2021 1:52 PM CDT Cough documented in this encounter Results * POC Influenza A/B, COVID-19 antigen (10/14/2021 1:52 PM CDT) Influenza A Ag, POC Negative [facility] IM Influenza B Ag, POC Negative [facility] IM COVID-19 Ag POC Presumptive Negative Presumptive Negative, Invalid [facility] IM Nasopharyngeal 10/14/2021 1: 52 PM CDT Result [facility] Jacqueline Fuller SALESPERSON SHEET MUSIC POINT OF CARE TEST ORDERABLES Final Result [facility] [address] [place] [address] documented in this encounter Visit Diagnoses Diagnosis Cough- Primary Seasonal allergic rhinitis due to other allergic trigger documented in this encounter Additional Health Concerns Infection Onset Date Last Indicated Resolved Time COVID: Suspected 10/14/2021 10/14/2021 10/14/2021 1:53 PM CDT documented as of this encounter Care Teams Afloat Cryptologic Manager Relationship Specialty Start Date End Date Pepper Morgan MD PCP - General 09/16/16 Hank Garibay MD [address] [facility] [address] WARNER Sher[address] [place] [address] Surgeon Orthopedic Surgery 03/27/17 Jacky Murry MD [address] [facility] [address] WARNER Sheridan [address] [place] [address] Ophthalmology 03/27/17 Puma Mckenzie MD [address] [facility] [address] WARN[address] [place] [address] Surgeon Orthopedic Surgery 07/11/19 documented as of this encounter
--- OUTSIDE RECORDS SUMMARY | 2024-06-18 18:58 | XMS_ITS | Encounter Summary ---
Author Organization [facility] Medical Group Address [address] [facility] [address] [place] [address] Care Team Providers Care Beer Maker Name Role Phone Pepper Morgan MD Primary Care Provider + [phone] Hank Garibay MD Unavailable [phone] Jacky Murry MD Unavailable [phone] Puma Mckenzie MD Unavailable [phone] Encounter Details Date Type Department Care Team (Late st Contact Info) Description 10/21/2021 1:15 PM CDT Telemedicine [facility] Orthopedics and Sports Medicine [address] [facility] [address] [place] [address] Susy Hummel PA [address] [place] [address] [address] [place] [address] Primary osteoarthritis of left hip (Primary Dx) Social History Tobacco Use Types [...] on file 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 After being given [...] plan moving forward. documented in this encounter Plan of Treatment Not on file documented as of this encounter Visit Diagnoses Diagnosis Primary osteoarthritis of left hip- Primary documented in this encounter Care Teams Beer Maker Relationship Specialty Start Date End Date Pepper Morgan MD PCP - General 09/16/16 Hank Garibay MD [address] [facility] [address] WARNER Sheridan [facility] [address] [place] [address] Surgeon Orthopedic Surgery 03/27/17 Jacky Murry MD [address] [place] [address] [address] WARNER Sheridan [facility] [address] [place] [address] Ophthalmology 03/27/17 Puma Mckenzie MD [address] [place] [address] DR WARNER Sheridan [facility] [address] [place] [address] Surgeon Orthopedic Surgery 07/11/19 documented as of this encounter
--- OUTSIDE RECORDS SUMMARY | 2024-06-18 18:58 | XMS_ITS | Encounter Summary ---
Author Organization [facility] Medical Group Address [address] [facility] [address] [place] [address] Care Team Providers Care Automotive Center Manager Name Role Phone Pepper Morgan MD Primary Care Provider + [phone] Hank Garibay MD Unavailable [phone] Jacky Murry MD Unavailable [phone] Puma Mckenzie MD Unavailable [phone] Encounter Details Date Type Department Care Team (Late st Contact Info) Description 10/18/[address] 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 Pre op appt scheduled. Pt also reminded to have updated labs prior to surgery. Pt also informed she still does not nee to be COVID tested prior to surgery. documented in this encounter Plan of Treatment Not on file documented as of this encounter Results * (ABNORMAL) Urinalysis reflex to microscopic and culture Urine (10/25/2021 12:58 PM CDT) Color, ur Yellow Yellow [facility] ([place]) Clarity, ur Clear Clear [facility] ([place]) Specific gravity, ur 1.010 1.003 - 1.030 [facility] ([place]) pH, urine 6.0 [facility] ([place]) Protein, ur ql Negative Negative [facility] ([place]) Glucose, ur ql Negative Negative [facility] ([place]) Ketones, ur Negative Negative [facility] ([place]) Bilirubin, ur Negative Negative [facility] ([place]) Blood, ur Negative Negative [facility] ([place]) Urobilinogen, ur <2.0 <2.0 mg/dL [facility] ([place]) Nitrite, ur Negative Negative [facility] ([place]) Leukocyte esterase, ur 4+(A) Negative [facility] ([place]) UA reflex comment Reflex to microscopic UA will be performed. [facility] ([place]) Urine 10/25/2021 12:5 8 PM CDT 10/25/2021 1:15 PM CDT Narrative [facility] ([place]) - 10/25/2021 1:29 PM CDT ?? Urine pH is affected by diet, medications, systemic acid-base disturbances, and renal tubular function. ??pH may affect urinary stone formation. ??For example, urine pH below 6.0 may help reduce the tendency for calcium phosphate stones and pH greater than 6.0 may reduce the tendency for uric acid stone formation. Source: [facility] [employer]. Last revised 06-29-2017 Puma Mckenzie MD LAB MICROBIOLOGY - GENER AL ORDERABLES Final Result Performing Organization Address [facility] Co de Phone Number [facility] [address] [facility] [place] [address] * (ABNORMAL) Hemoglobin A1c (10/25/2021 12:56 PM CDT) Hgb A1C 5.7(H) 4.0 - 5.6 % [facility] ([place]) Estimated Average Glucose 117 mg/dL [facility] Comment: The ADA recommends reporting an estimated Average Glucose (eAG) with all Hemoglobin A1c results using the equation derived from a study of 507 normal and diabetic adults. ??Minority populations were underrepresented and children were not included. ?? (Diabetes Care 31:9385-1183, 2008). ??The eAG is not equivalent to a fasting glucose. Blood 10/25/2021 12:5 6 PM CDT 10/25/2021 1:14 PM CDT Puma Mckenzie MD LAB BLOOD ORDERABLES Fin al Result Performing Organization Address [facility] Co de Phone Number [facility] ([place] [address] [facility] [place] [address] * Comprehensive metabolic panel (10/25/2021 12:56 PM CDT) Sodium 138 135 - 145 mmol/L [facility] ([place]) Potassium, pl 3.7 3.3 - 4.9 mmol/L [facility] ([place]) Chloride 99 97 - 110 mmol/L [facility]) CO2 30 22 - 32 mmol/L [facility] ([place]) Anion gap 8 2 - 15 mmol/L [facility] ([place]) BUN 13 8 - 25 mg/dL [facility]) Creatinine 0.73 0.60 - 1.10 mg/dL [facility] ([place]) Glucose 93 70 - 199 mg/dL [facility] ([place]) [...] 1.2 mg/dL [facility] ([place]) Protein, pl 6.5 6.5 - 8.5 g/dL [facility] ([place]) Albumin 3.7 3.5 - 5.0 g/dL [facility] ([place]) Alk phos 123 40 - 130 Units/L [facility]) ALT 15 7 - 45 Units/L [facility]) AST 16 10 - 45 Units/L [facility]) Blood 10/25/2021 12:5 6 PM CDT 10/25/2021 1:14 PM CDT us Puma Mckenzie MD LAB BLOOD ORDERABLES Fin al Result [facility] ([place]) [address] [facility] Department of Laboratories [place], [place] [id number] * (ABNORMAL) CBC with auto differential (10/25/2021 12:56 PM CDT) WBC 7.9 3.8 - 9.9 K/cumm [facility] ([place]) Hgb 13.3 11.9 - 15.5 g/dL [facility] ([place]) Hct 42.1 35.6 - 45.5 % [facility] ([place]) Plt 347 150 - 400 K/cumm [facility] ([place]) MPV 8.7(L) 9.1 - 12.3 fL [facility] ([place]) RBC 4.89 3.90 - 5.20 M/cumm [facility] ([place]) MCV 86.1 81.3 - 96.4 fL [facility] ([place]) MCH 27.2 27.1 - 33.3 pg [facility] ([place]) MCHC 31.6(L) 32.3 - 35.7 g/dL [facility] ([place]) RDW CV 14.6 11.1 - 14.9 % [facility] ([place]) RDW SD 45.9 35.7 - 48.1 fL [facility] ([place]) NRBC abs 0.00 0.00 - 0.01 K/cumm [facility] ([place]) Blood 10/25/2021 12:5 6 PM CDT 10/25/2021 1:14 PM CDT Puma Mckenzie MD LAB BLOOD ORDERABLES Fin al Result Performing Organization Address City/State/[facility] Co de Phone Number [facility] ([place]) 1 [facility] Department [place] [address] documented in this encounter Visit Diagnoses Diagnosis Pre-operative exam- Primary Unspecified pre-operative examination Pre-operative exam Unspecified pre-operative examination documented in this encounter Care Teams Automotive Center Manager Relationship Specialty Start Date End Date Pepper Morgan MD PCP - General 09/16/16 Hank Garibay MD [address] [place] [address] DR WARNER Sheridan [facility] [address] [place] [address] Surgeon Orthopedic Surgery 03/27/17 Jacky Murry MD [address] [place] [address] [address] WARNER [address] [place] [address] Ophthalmology 03/27/17 Puma Mckenzie MD [address] [facility] [place] [address] Surgeon Orthopedic Surgery 07/11/19 documented as of this encounter
--- OUTSIDE RECORDS SUMMARY | 2024-06-18 18:58 | XMS_ITS | Encounter Summary ---
Author Organization Formerly [facility] Address [address] [place] [address] Care Team Providers Care Leave Manager Name Role Phone Pepper Morgan MD Primary Care Provider + [phone] Hank Garibay MD Unavailable [phone] Jacky Murry MD Unavailable [phone] Puma Mckenzie MD Unavailable [phone] Encounter Details Date Type Department Care Team (Late st Contact Info) Description 10/25/2021 12:55 PM CDT Lab [facility] [address] [place] [address] Puma Mckenzie MD [address] [place] [address] Pre-operative exam Discharge Disposition: Discharge to home or self [...] drink containing alc ohol? Monthly or less 10/25/2021 Q2: How many drinks containi ng alcohol do you have on a typical day when you are drinking? 1 or 2 10/25/2021 Q3: How often do you have si x or more drinks on one occasion? 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 Gender Identity Not on file Sexual Orientation [...] Diagnosis Comments URINALYSIS AND REFLEX TO MICROSCOPIC AND CULTURE Routine 10/25/2021 12:58 PM CDT Pre-operative exam URINALYSIS, MICROSCOPIC ONLY Routine 10/25/2021 12:58 PM CDT Pre-operative exam URINE CULTURE Routine 10/25/2021 12:58 PM CDT EGFR Routine 10/25/2021 12:56 PM CDT Pre-operative exam DIFFERENTIAL AUTO Routine 10/25/2021 12: 56 PM CDT Pre-operative exam CBC WITH AUTO DIFFERENTIAL Routine 10/25/2021 12:56 PM CDT Pre-operative exam HEMOGLOBIN A1C Routine 10/25/2021 12:56 PM CDT Pre-operative exam COMPREHENSIVE METABOLIC PANEL Routine 10/25/2021 12:56 PM CDT Pre-operative exam documented in this encounter Results * Urine culture Urine (10/25/2021 12:58 PM CDT) Report Final Report: Less than 100,000 colonies/mL (clinically insignificant growth based on current clinical standards) [facility] ([place]) Comment:Testing performed by : [facility], [address] [facility] [place]., [address] Organism (CLINICALLY INSIGNIFICANT GROWTH [facility] ([place]) Urine 10/25/2021 12:5 8 PM CDT 10/25/2021 5:21 PM CDT Narrative [facility] ([place]) - 10/26/2021 7:11 PM CDT Urine culture reflexed based upon urinalysis results. Testing performed by [facility] Microbiology Laboratory ([phone]) Puma Mckenzie MD LAB MICROBIOLOGY - GENER AL ORDERABLES Final Result Performing Organization Address [facility]/ZIP Co de Phone Number [facility] ([place]) [address] [facility] [place] [address] * (ABNORMAL) Urinalysis, microscopic only (10/25/2021 12:58 PM CDT) WBC, ur 21-50(A) 0 - 5 /HPF [facility] ([place]) RBC, ur 0-2 0 - 2 /HPF [facility] ([place]) Epithelial cells, squamous, ur 1-5 0 - 5 /HPF [facility] ([place]) Mucous, ur Present(A) [facility] ([place]) Hyaline casts, ur 6-10 0 - 10 /LPF [facility] ([place]) Culture Reflex Comment Reflex to urine culture will be performed. [facility] ([place]) Urine 10/25/2021 12:5 8 PM CDT 10/25/2021 1:15 PM CDT Puma Mckenzie MD LAB URINE ORDERABLES Fin al Result Performing Organization Address [facility]/ZIP Co de Phone Number [facility] ([place]) [address] [facility] [place] [address] * (ABNORMAL) Urinalysis reflex to microscopic and culture Urine (10/25/2021 12:58 PM CDT) Color, ur Yellow Yellow [facility] ([place]) Clarity, ur Clear Clear [facility] [...] Reflex to microscopic UA will be performed. [facility] ([place]) Urine 10/25/2021 12:5 8 PM CDT 10/25/2021 1:15 PM CDT Narrative [facility] ([place]) - 10/25/2021 1:29 PM CDT ?? Urine pH is affected by diet, medications, systemic acid-base disturbances, and renal tubular function. ??pH may affect urinary stone formation. ??For example, urine pH below 6.0 may help reduce the tendency for calcium phosphate stones and pH greater than 6.0 may reduce the tendency for uric acid stone formation. Source: [employer]. Last revised 06-29-2017 us Puma Mckenzie MD LAB MICROBIOLOGY - GENER AL ORDERABLES Final Result [facility] ([place]) [address] [facility] [place] [address] * eGFR (10/25/2021 12:56 PM CDT) eGFR 82 mL/min/1. 73 m2 [facility] ([place]) Comment: [...] interpretive data was last reviewed 2021. Blood 10/25/2021 12:5 6 PM CDT 10/25/2021 1:14 PM CDT us Puma Mckenzie MD LAB BLOOD ORDERABLES Fin al Result [facility] ([place]) [address] [facility] Department of Laboratories [place], [place] [id number] * Differential, auto (10/25/2021 12:56 PM CDT) Neutrophil abs 5.1 1.7 - 6.5 K/cumm [facility] ([place]) Imm gran abs 0.1 0.0 - 0.1 K/cumm [facility] ([place]) Lymphocyte abs 1.9 0.8 - 3.3 K/cumm [facility] ([place]) Monocyte abs 0.6 0.2 - 0.8 K/cumm [facility] ([place]) Eosinophil abs 0.3 0.0 - 0.5 K/cumm [facility] ([place]) Basophil abs 0.0 0.0 - 0.1 K/cumm [facility] ([place]) Neutrophil pct 63.7 % [facility] ([place]) Comment: Interpretive [...] was last revised on 2017. Lymphocyte pct 23.5 % [facility] ([place]) Comment: Interpretive Data Percent cell count reference ranges are not reported, since discordance with absolute values may lead to misinterpretation of CBC data. Current Interpretive Data was last revised on 2017. Monocyte pct 7.3 % [facility] ([place]) Comment: Interpretive Data [...] Data was last revised on 2017. Blood 10/25/2021 12:5 6 PM CDT 10/25/2021 1:14 PM CDT Puma Mckenzie MD LAB BLOOD ORDERABLES Fin al Result [facility] ([place]) [address] [facility] Department [place] [address] * (ABNORMAL) CBC with auto differential (10/25/2021 12:56 PM CDT) WBC 7.9 3.8 - 9.9 K/cumm [facility] ([place]) Hgb 13.3 11.9 - 15.5 g/dL [facility] ([place]) Hct 42.1 35.6 - 45.5 % [facility] ([place]) Plt 347 150 - 400 K/cumm [facility] ([place]) MPV 8.7(L) 9.1 - 12.3 fL [facility] ([place]) RBC 4.89 3.90 - 5.20 M/cumm [facility] ([place]) MCV 86.1 81.3 - 96.4 fL [facility] ([place]) MCH 27.2 27.1 - 33.3 pg [facility] MCHC 31.6(L) 32.3 - 35.7 g/dL [facility] ([place]) RDW CV 14.6 11.1 - 14.9 % [facility] ([place]) RDW SD 45.9 35.7 - 48.1 fL [facility] NRBC abs 0.00 0.00 - 0.01 K/cumm [facility] Blood 10/25/2021 12:5 6 PM CDT 10/25/2021 1:14 PM CDT Puma Mckenzie MD LAB BLOOD ORDERABLES [facility] al Result [facility] ([place]) [address] [facility] Department [place] [address] * Comprehensive metabolic panel (10/25/2021 12:56 PM CDT) Sodium 138 135 - 145 mmol/L [facility] ([place]) Potassium, pl 3.7 3.3 - 4.9 mmol/L [facility] Chloride 99 97 - 110 mmol/L [facility]) CO2 30 22 - 32 mmol/L [facility]) Anion gap 8 2 - 15 mmol/L [facility] BUN 13 8 - 25 mg/dL [facility] ([place]) Creatinine 0.73 0.60 - 1.10 mg/dL [facility] ([place]) Glucose 93 70 - 199 mg/dL [facility] Comment: Interpretive Data [...] MD LAB BLOOD ORDERABLES Fin al Result [facility] ([place]) [address] [facility] [place] [address] * (ABNORMAL) Hemoglobin A1c (10/25/2021 12:56 PM CDT) Hgb A1C 5.7(H) 4.0 - 5.6 % [facility] ([place]) Estimated Average Glucose 117 mg/dL [facility] ([place]) Comment: The ADA recommends reporting an estimated Average Glucose (eAG) with all Hemoglobin A1c results using the equation derived from a study of 507 normal and diabetic adults. ??Minority populations were underrepresented and children were not included. ?? (Diabetes Care 31:8595-8995, 2008). ??The eAG is not equivalent to a fasting glucose. Blood 10/25/2021 12:5 6 PM CDT 10/25/2021 1:14 PM CDT Puma Mckenzie MD LAB BLOOD ORDERABLES Fin al Result [facility] ([place]) [address] [facility] [place] [address] documented in this encounter Visit Diagnoses Diagnosis Pre-operative exam Unspecified pre-operative examination documented in this encounter Care Teams Leave Manager Relationship Specialty Start Date End Date Pepper Morgan MD PCP - General 09/16/16 Hank Garibay MD [address] [place] [address] Surgeon Orthopedic Surgery 03/27/17 Jacky Murry MD [address] [place] [address] Ophthalmology 03/27/17 Puma Mckenzie MD [address] [place] [address] Surgeon Orthopedic Surgery 07/11/19 documented as of this encounter
--- OUTSIDE RECORDS SUMMARY | 2024-06-18 18:58 | XMS_ITS | Encounter Summary ---
Author Organization [facility] Address [address] [facility] [facility] [address] [place] [address] Care Team Providers Care Product Coordinator Name Role Phone Pepper Morgan MD Primary Care Provider + [phone] Hank Garibay MD Unavailable [phone] Jacky Murry MD Unavailable [phone] Puma Mckenzie MD Unavailable [phone] Encounter Details Date Type Department Care Team (Late st Contact Info) Description 10/18/2021 Documentation [facility] Orthopedics and Sports Medicine [address] [facility] [address], [place] [address] Tasha Cowan MA Social History Tobacco Use Types Packs/Day [...] on file Legal Sex Female 4:33 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 Morgan for LTHA on 11/01/21 documented in this encounter Plan of Treatment Not on file documented as of this encounter Visit Diagnoses Not on filedocumented in this encounter Care Teams Product Coordinator Relationship Specialty Start Date End Date Pepper Morgan MD PCP - General 09/16/16 Hank Garibay MD [address] [facility] [address] [place] [address] Surgeon Orthopedic Surgery 03/27/17 Jacky Murry MD [address] [facility] [address] [place] [address] Ophthalmology 03/27/17 Puma Mckenzie MD [address] [facility] [address] [place] [address] Surgeon Orthopedic Surgery 07/11/19 documented as of this encounter
--- OUTSIDE RECORDS SUMMARY | 2024-06-18 18:59 | XMS_ITS | Encounter Summary ---
Author Organization [facility] Address [address] [facility] [address] [place] [address] Care Team Providers Care Apartment Maintenance Worker Name Role Phone Pepper Morgan MD Primary Care Provider +- [phone] Hank Garibay MD Unavailable [phone] Jacky Murry MD Unavailable [phone] Puma Mckenzie MD Unavailable [phone] Encounter Details Date Type Department Care Team (Late st Contact Info) Description 08/23/2021 Telephone [facility] [address] [place] [id number] Pepper Morgan MD [address] [place] [address] Social History Tobacco Use Types Packs/Day Years Used Date Smoking Tobacco: Former Cigarettes Q uit: 1991 Smokeless Tobacco: Never Alcohol Use Standard Drinks/Week Comments Not Currently 0 (1 standard drink = 0.6 oz pur e alcohol) PHQ-2 Answer Date Recorded PHQ-2 Total Score (If total score is 3 or more points, staff should administer the PHQ-9) 1 05/31/2021 Comments No Sex and Gender Information Value Date Recorded Sex Assigned at Not on file Legal Sex Female 4:33 AM GRAIN 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 MD Kem orders: Please have KATHERINE remove the designation and she is ???not taking?? Plendil = Filodipine 5 mg. She is resuming with Plendil today. Forwarded to Clinical pool. N OILSEED OR PASTURE GROWER documented in this encounter Plan of Treatment Not on file documented as of this encounter Visit Diagnoses Not on filedocumented in this encounter Care Teams Apartment Maintenance Worker Relationship Specialty Start Date End Date Pepper Morgan MD PCP - General 09/16/16 Hank Garibay MD [address] [facility] [address] [place] [address] Surgeon Orthopedic Surgery 03/27/17 Jacyk Murry MD [address] [facility] [address] [place] [address] Ophthalmology 03/27/17 Puma Mckenzie MD [address] [facility] [address] [place] [address] Surgeon Orthopedic Surgery 07/11/19 documented as of this encounter
--- OUTSIDE RECORDS SUMMARY | 2024-06-18 18:59 | XMS_ITS | Encounter Summary ---
Author Organization [facility] Address [address] [facility] [address] [facility] [address] [place] [address] Care Team Providers Care Health And Fitness Instructor Name Role Phone Pepper Morgan MD Primary Care Provider [phone] Hank Garibay MD Unavailable [phone] Jacky Murry MD Unavailable [phone] Puma Mckenzie MD Unavailable [phone] Reason for Visit * Diagnostic Imaging (Routine) - Closed Specialty Diagnoses / Procedures Referred By Contac t Referred To Contact Diagnoses Left hip pain Procedures XR Hip Left 2 or 3 Views Puma Mckenzie MD Phone: tel: Referral ID Status Reason Start Date Expiration Date Visits Re quested Visits Authorized [id number] Closed 07/15/2021 08/14/2022 1 1 Encounter Details Date Type Department Care Team (Latest Contact Info) Description 07/15/2021 7:48 AM SATURATOR TENDER - 07/15/2021 11:59 PM SATURATOR TENDER Hospital Encounter [facility] Orthopedics and Sports Medicine [address] [place] [address] [address], [place] [address] Discharge Disposition: Discharge to home [...] on file Legal Sex Female 4:33 AM SATURATOR TENDER Gender Identity Not on file Sexual Orientation Not on file Occupation Industry Job Start Date Job End Date retired Not on file Not on file Not on file documented as of this encounter Medications at Time of Discharge cholecalciferol (VITAMIN D-3) 2000 unit tablet Take 1 tablet (2,000 Units total) by mouth daily albuterol HFA (Proventil HFA) 90 mcg/actuation inhalerIndications :Chest congestion Inhale 2 puffs every 6 (six) hours as needed for wheezing or shortness of breath 6.7 g 01/08/2021 2 apixaban (ELIQUIS) 5 mg tabletIndications: Atrial fibrillation, unspecified type (HCC) Take 1 tablet (5 mg total) by mouth 2 (two) times a day 60 tablet 11 05/31/2021 2 biotin 10,000 mcg capsule Take by mouth 2 felodipine (PLENDIL) 5 mg 24 hr tabletIndications: 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 Take 1 tablet (5 mg total) by mouth daily 90 tablet 1 05/31/2021 2 furosemide (LASIX) 40 mg tablet Take 1 tablet (40 mg total) by mouth daily 90 tablet 06/03/[address] (PROTONIX) 20 mg EC tabletIndications: Chronic GERD Take 1 tablet (20 mg total) by mouth daily With the largest meal 90 tablet 1 05/31/2021 2 polyethylene glycol (MIRALAX) 17 gram packetIndications: constipation Take 1 packet (17 g total) by mouth daily 05/26/2020 2 pramipexole (MIRAPEX) 0.125 mg tabletIndications: Idiopathic Parkinsonism,Restl ess Legs Syndrome Take 1 tablet (0.125 mg total) by mouth 3 (three) times a day Take at 9:00 a.m., 3:00 p.m., 9:00 p.m. 270 tablet 1 05/31/2021 2 propranoloL (INDERAL) 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: Hereditary essential tremor Take 1 tablet (20 mg total) by mouth 2 (two) times a day as needed (Tremor) 180 tablet 1 05/31/2021 2 senna-docusate (Senna-S) 8.6-50 mgIndications:Cons tipation due to opioid therapy Take 1 tablet by mouth daily 90 tablet 1 04/21/2021 2 spironolactone (Aldactone) 25 mg tabletIndications: 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 Take 1/2 tablet daily 30 tablet 06/02/2021 2 traMADoL (ULTRAM) 50 mg tabletIndications: Spinal stenosis of lumbar region with neurogenic claudication,Cervi fernando radiculopathy,Hip arthritis Take 0.5-1 tablets (25-50 mg total) by mouth 2 (two) times a day 40 tablet 5 05/31/2021 2 documented as of this encounter Discharge Disposition Disposition Code Departure Means Destination Discharge to home or self care documented in this encounter Plan of Treatment Not on file documented as of this encounter Procedures Procedure Name Priority Date/Time Associated Diagnosis Comments XR HIP LEFT 2 OR 3 VIEWS Schedule Routine, Read Routine (OP Routine) 07/15/2021 1:21 PM SATURATOR TENDER Left hip pain documented in this encounter Results * XR Hip Left 2 or 3 Views (07/15/2021 1:21 PM SATURATOR TENDER) Anatomical Region Laterality Modality Lower Extremities, Hip, Pelvis Left D igital Radiography Narrative 07/15/2021 1:48 PM SATURATOR TENDER ??Right total hip arthroplasty in appropriate position. ??Severe advanced left hip osteoarthritis with [id number] contact, osteophyte formation, subluxation. us Puma Mckenzie MD IMG XR PROCEDURES Final Result documented in this encounter Visit Diagnoses Not on filedocumented in this encounter Care Teams Health And Fitness Instructor Relationship Specialty Start Date End Date Pepper Morgan MD PCP - General 09/16/16 Hank Garibay MD [address] [facility] [address] [place] [address] Surgeon Orthopedic Surgery 03/27/17 Jacky Murry MD [address] [place] [address] [address] [place] [address] Ophthalmology 03/27/17 Puma Mckenzie MD 4 [facility] [address] [place] [address] Surgeon Orthopedic Surgery 07/11/19 documented as of this encounter
--- OUTSIDE RECORDS SUMMARY | 2024-06-18 18:59 | XMS_ITS | Encounter Summary ---
Author Organization [facility] Address [address] [facility] [address] [place] [address] Care Team Providers Care Spoon Maker Name Role Phone Pepper Morgan MD Primary Care Provider [phone] Hank Garibay MD Unavailable [phone] Jacky Murry MD Unavailable [phone] Puma Mckenzie MD Unavailable [phone] Reason for Visit * Diagnostic Imaging (Routine) - Closed Specialty Diagnoses / Procedures Referred By Contac t Referred To Contact Diagnoses History of arthroplasty of left knee Procedures XR Knee Left 3 Views Susy Hummel PA [address] [place] [address] [address] [place] [address] Phone: tel: fax: Referral ID Status Reason Start Date Expiration Date Visits Re quested Visits Authorized [id number] Closed 08/24/2021 09/23/2022 1 1 Encounter Details Date Type Department Care Team (Latest Contact Info) Description 08/24/2021 8:06 AM PRESCHOOL AIDE - 08/24/2021 11:59 PM PRESCHOOL AIDE Hospital Encounter [facility] Orthopedics and Sports Medicine [address] [facility] [address] [place] [address] Discharge Disposition: Discharge to home or self [...] on file Legal Sex Female 4:33 AM PRESCHOOL AIDE Gender Identity Not on file Sexual Orientation Not on file Occupation Industry Job Start Date Job End Date retired Not on file Not on file Not on file documented as of this encounter Medications at Time of Discharge cholecalciferol (VITAMIN D-3) 2000 unit tablet Take 1 tablet (2,000 Units total) by mouth daily albuterol HFA (Proventil HFA) 90 mcg/actuation inhalerIndications: Chest congestion Inhale 2 puffs every 6 (six) hours as needed for wheezing or shortness of breath 6.7 g 01/08/2021 2 apixaban (ELIQUIS) 5 mg tabletIndications:A trial fibrillation, unspecified type (HCC) Take 1 tablet (5 mg total) by mouth 2 (two) times a day 60 tablet 11 05/31/2021 2 biotin 10,000 mcg capsule Take by mouth 2 felodipine (PLENDIL) 5 mg 24 hr tabletIndications:B enign hypertension Take 1 tablet (5 mg total) by mouth daily 90 tablet 1 08/23/2021 2 furosemide (LASIX) 40 mg tabletIndications:B enign hypertension Take 1 tablet (40 mg total) by mouth daily 90 tablet 1 08/23/2021 2 guaiFENesin ER (MUCINEX) 600 mg 12 hr tabletIndications:D ysfunction of both eustachian tubes Take 1 tablet (600 mg total) by mouth 2 (two) times a day 60 tablet 3 08/23/[address] (PROTONIX) 20 mg EC tabletIndications:C hronic GERD Take 1 tablet (20 mg total) by mouth daily With the largest meal 90 tablet 1 08/23/2021 2 polyethylene glycol (MIRALAX) 17 gram packetIndications:c onstipation Take 1 packet (17 g total) by mouth daily 05/26/2020 2 pramipexole (MIRAPEX) 0.125 mg tabletIndications:I diopathic Parkinsonism,Restle ss Legs Syndrome Take 1 tablet (0.125 mg total) by mouth 3 (three) times a day Take at 9:00 a.m., 3:00 p.m., 9:00 p.m. 270 tablet 1 08/23/2021 2 propranoloL (INDERAL) 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:H ereditary essential tremor Take 1 tablet (20 mg total) by mouth 2 (two) times a day as needed (Tremor) 180 tablet 1 08/23/2021 2 senna-docusate (Senna-S) 8.6-50 mgIndications:Const ipation due to opioid therapy Take 1 tablet by mouth daily 90 tablet 1 04/21/2021 2 spironolactone (Aldactone) 25 mg tabletIndications:B enign hypertension Take 0.5 tablets (12.5 mg total) by mouth daily Take 1/2 tablet daily 50 tablet 1 08/23/2021 2 traMADoL (ULTRAM) 50 mg tabletIndications:H ip arthritis,Spinal stenosis of lumbar region with neurogenic claudication,Cervic al radiculopathy Take 0.5-1 tablets (25-50 mg total) by mouth 2 (two) times a day 40 tablet 5 08/23/2021 2 documented as of this encounter Discharge Disposition Disposition Code Departure Means Destination Discharge to home or self care documented in this encounter Plan of Treatment Not on file documented as of this encounter Procedures Procedure Name Priority Date/Time Associated Diagnosis Comments XR KNEE LEFT 3 VIEWS Schedule Routine, Read Routine (OP Routine) 08/24/2021 1:31 PM PRESCHOOL AIDE History of arthroplasty of left knee documented in this encounter Results * XR Knee Left 3 Views (08/24/2021 1:31 PM PRESCHOOL AIDE) Anatomical Region Laterality Modality Lower Extremities, Knee Left Digital Radiography Narrative 08/24/2021 2:03 PM PRESCHOOL AIDE X-ray of the left knee viewed and interpreted. ??There is no evidence of fracture, subluxation, or bony abnormality. Knee arthroplasty in good position with no interval change. Susy Michelle BRUCE IMG XR PROCEDURES Fin al Result documented in this encounter Visit Diagnoses Not on filedocumented in this encounter Care Teams Spoon Maker Relationship Specialty Start Date End Date Pepper Morgan MD PCP - General 09/16/16 Hank Garibay MD [address] [facility] [address] [place] [address] [address] Surgeon Orthopedic Surgery 03/27/17 Jacky Murry MD [address] [place] [address] DR [address] [place] [address] [address] Ophthalmology 03/27/17 Puma Mckenzie MD [address] [place] [address] [address] [facility] [address] [place] [address] Surgeon Orthopedic Surgery 07/11/19 documented as of this encounter
--- OUTSIDE RECORDS SUMMARY | 2024-06-18 18:59 | XMS_ITS | Encounter Summary ---
Author Organization [facility] Address [address] [address] Care Team Providers Care Hi Ranger Operator Name Role Phone Pepper Morgan MD Primary Care Provider Hank Garibay MD Unavailable [phone] Jacky Murry MD Unavailable [phone] Puma Mckenzie MD Unavailable [phone] Reason for Visit * Reason Comments Facial Swelling Encounter Details Date Type Department Care Team (Latest Contact Info) Description 09/02/2021 9:00 AM CDT Office Visit [facility] [address] [place] [phone] Jacqueline Fuller, [address] [place] [address] Facial swelling (Primary Dx) Social History Tobacco Use [...] file Legal Sex Female 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 Gender Identity Not on file Sexual Orientation Not on file Occupation Industry Job Start Date Job End Date retired Not on file Not on file Not on file documented as of this encounter Last Filed Vital Signs Vital Sign Reading Time Taken Comments Blood Pressure 118/78 09/02/2021 8:52 AM CDT Pulse 70 09/02/2021 8:52 AM CDT Temperature 36.3 ??C (97.4 ??F) 09/02/2021 8:52 AM CD T Respiratory Rate 18 09/02/2021 8:52 AM CDT Oxygen Saturation 98% 09/02/2021 8:52 AM CDT Inhaled Oxygen Concentration - - Weight 86.2 kg (190 lb) 09/02/2021 8:52 AM CDT Height - - Body Mass Index 37.11 08/24/2021 1:31 PM TRAFFIC OR SYSTEM DISPATCHER documented in this encounter Patient Instructions * Patient Instructions* Jacqueline Fuller NP - 09/02/2021 9:00 AM CDT Orders for AMS STAFF to arrange Please do C4 and C1-INH protein esterase and function for recurrent facial swelling. Orders for Tess Benedict to arrange Please begin taking a daily antihistamine like Claritin Try to sleep with the head of the be elevated If you develop worsening swelling or trouble breathing go to the ER Call with any other issues or concerns Return for Next scheduled follow up. No orders of the defined types were placed in this encounter. A brief review of all your problems, medications, and orders from today ICD-9-CM ICD-10-CM 1. Facial swelling 784.2 R22.0 PLEASE BRING IN ALL PILL BOTTLES TO EVERY OFFICE VISIT, THIS IS ESSENTIAL FOR ACCURATE REFILLS AND MAINTAINING AN ACCURATE MEDICATION LIST. documented in this encounter Progress Notes * Jacqueline Fuller NP - 09/02/2021 9:00 AM CDT Subjective/Objective Patient ID: Tess Benedict is a 85 y.o. female. Chief Complaint Facial Swelling HPI The patient is here for right facial swelling that she noticed yesterday. She states that there is no pain to that side. She states that this is not the first time that this has happened. She has nothad any injury on the right side. She slept on her right side and she woke up with the swelling yesterday. She states that she lays with her bed flat and her pillow is soft. The patient has had dentures for many years that she takes care of on a regular basis there are no sores on her mouth. She was here a couple weeks ago for the same thing but on the left side. The swelling moves freely and is soft. She states as the day goes on the swelling gets better. She states the she has used ice to help with the swelling and has even ate ice chips to see if it would help but it has not made much of adifference. She denies any associated trouble breathing. Review of Systems Constitutional: Negative for appetite change, chills and fever. HENT: Negative for congestion, postnasal drip, rhinorrhea, sinus pressure, sinus pain and sore throat. Respiratory: Negative for chest tightness and shortness of breath. Cardiovascular: Negative for chest pain and palpitations. Skin: Negative for color change and rash. Neurological: Positive for facial asymmetry (right cheek swollen). Negative for dizziness, speech difficulty, light-headedness, numbness and headaches. Psychiatric/Behavioral: Negative. Physical Exam Vitals and nursing note reviewed. Constitutional: Appearance: Normal appearance. HENT: Head: Normocephalic and atraumatic. Comments: Mild swelling of rt lower lip and cheek Right Ear: Tympanic membrane, ear canal and [...] and oriented to person, place, and time. Assessment/Plan Diagnoses and all orders for this visit: Facial swelling (R22.0) (Primary) Assessment & Plan: Patient presents today with recurrent facial swelling x 1 day. This time swelling is noted on the rt side of her face. She reports she will develop swelling that will last for days at a time. She hashad recurrence over the last several years. She [...] to ER with worsening swelling or SOB. Orders: - C4 complement; Future - C1 INHIBITOR, PROTEIN; Future - C1 esterase inhibitor, functional; Future Cosigned by Pepper Morgan MD at 09/02/2021 4:16 PM CDT documented in this encounter Miscellaneous Notes * Assessment & Plan Note - Jacqueline Fuller NP - 09/02/2021 9:33 AM CDT Associated Problem(s): Facial swelling (Resolved 01/24/2022) Patient presents today with recurrent facial swelling x 1 day. This time swelling is noted on the rt side of her face. She reports she will develop swelling that will last for days at a time. She hashad recurrence over the last several years. She [...] to ER with worsening swelling or SOB. documented in this encounter Plan of Treatment Not on file documented as of this encounter Procedures Procedure Name Priority Date/Time Associated Diagnosis Comments C4 COMPLEMENT Routine 09/02/2021 10:34 AM CDT Facial swelling C1 INHIBITOR, PROTEIN Routine 09/02/2021 10:34 AM CDT Facial swelling C1 ESTERASE INHIBITOR, FUNCTIONAL Routine 09/02/2021 10:34 AM CDT Facial swelling documented in this encounter Results * C1 esterase inhibitor, functional (09/02/2021 10:34 AM CDT) C1 Esterase inhibitor, functional >100 % [facility] Comment: ? Reference Range ? > or = 68 ??Normal ? 41-67 ?Equivocal ? < or = 40 ??Abnormal ? Less than 40% of the reference ? functional activity indicates a ? likely diagnosis of hereditary ? angioedema or acquired ? C1 Inhibitor deficiency. For additional information, please refer to: http://education.[employer]/faq/FAQ54 (This link is being provided for informational/ educational purposes only.) Blood specimen (specimen) 09/02/2021 10:34 AM CDT 09/02/2021 10:35 AM CDT Jacqueline Fuller AUTOMAT CAR ATTENDANT LAB BLOOD ORDERABL ES Final Result Performing Organization Address [facility] de Phone Number [facility] [address] [place] [address] * C1 INHIBITOR, PROTEIN (09/02/2021 10:34 AM CDT) C1 Esterase inhibitor, protein 37 21 - 39 mg/dL [facility] Comment: A normal C1 esterase inhibitor protein level does not rule out the possibility of a functional C1 esterase inhibitor deficiency. Consider further testing of C1 esterase inhibitor functional activity, if clinically indicated. Blood specimen (specimen) 09/02/2021 10:34 AM CDT 09/02/2021 10:35 AM CDT Jacqueline Fuller NP LAB BLOOD ORDERABL ES Final Result Performing Organization Address [facility] de Phone Number [facility] [address] [place] [address] * C4 complement (09/02/2021 10:34 AM CDT) Complement component C4C 31 mg/dL [facility] Comment: Reference Range <1 year: ?Not established 1-14 years: ? 13-46 15-80 years: ?15-57 > or = 81 years ?? Not established Blood specimen (specimen) 09/02/2021 10:34 AM CDT 09/02/2021 10:35 AM CDT Jacqueline Fuller AUTOMAT CAR ATTENDANT LAB BLOOD ORDERABL ES Final Result Performing Organization Address [facility] Co de Phone Number [facility] [address] [place] [phone] documented in this encounter Visit Diagnoses Diagnosis Facial swelling- Primary Swelling, mass, or lump in head and neck documented in this encounter Care Teams Hi Ranger Operator Relationship Specialty Start Date End Date Pepper Morgan MD PCP - General 09/16/16 Hank Garibay MD [address] [facility] [address] [place] [address] Surgeon Orthopedic Surgery 03/27/17 Jacky Murry MD [address] [facility] [address] [place] [address] Ophthalmology 03/27/17 Puma Mckenzie MD [address] [facility] [address] [place] [address] Surgeon Orthopedic Surgery 07/11/19 documented as of this encounter
--- OUTSIDE RECORDS SUMMARY | 2024-06-18 18:59 | XMS_ITS | Encounter Summary ---
Author Organization [facility] Address [address] [facility] [address] [place] [address] Care Team Providers Care Filling Mixer Name Role Phone Pepper Morgan MD Primary Care Provider [phone] Hank Garibay MD Unavailable [phone] Jacky Murry MD Unavailable [phone] Puma Mckenzie MD Unavailable [phone] Reason for Referral * Diagnostic Imaging (Routine) - Closed Specialty Diagnoses / Procedures Referred By Contac t Referred To Contact Diagnoses History of arthroplasty of left knee Procedures XR Knee Left 3 Views Susy Hummel PA [address] [place] [address] [address], [place] [address] Phone: tel: fax: Referral ID Status Reason Start Date Expiration Date Visits Re quested Visits Authorized [id number] Closed 08/24/2021 09/23/2022 1 1 STANT PLANT CONTROL OPERATOR Reason for Visit * Reason Comments Pain Encounter Details Date Type Department Care Team (Late st Contact Info) Description 08/24/2021 1:15 PM ASSISTANT PLANT CONTROL OPERATOR Office Visit [facility] Orthopedics and Sports Medicine [address] [facility] [address], [place] [address] Susy Hummel PA [address] [place] [address] [address] [place] [address] History of arthroplasty of left knee (Primary Dx); Primary osteoarthritis of left hip Social History Tobacco Use Types Packs/Day Years [...] file Legal Sex Female 4:33 AM ASSISTANT PLANT CONTROL 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 Gender Identity Not on file Sexual Orientation Not on file Occupation Industry Job Start Date Job End Date retired Not on file Not on file Not on file documented as of this encounter Last Filed Vital Signs Vital Sign Reading Time Taken Comments Blood Pressure 132/86 08/24/2021 1:31 PM ASSISTANT PLANT CONTROL OPERATOR Pulse 72 08/24/2021 1:31 PM ASSISTANT PLANT CONTROL OPERATOR Temperature - - Respiratory Rate - - Oxygen Saturation - - Inhaled Oxygen Concentration - - Weight 85.3 kg (188 lb) 08/24/2021 1:31 PM ASSISTANT PLANT CONTROL OPERATOR Height 152.4 cm (5') 08/24/2021 1:31 PM ASSISTANT PLANT CONTROL OPERATOR Body Mass Index 36.72 08/24/2021 1:31 PM ASSISTANT PLANT CONTROL OPERATOR documented in this encounter Progress Notes * Susy Hummel PA - 08/24/2021 1:15 PM CST Images from the original note were not included. NEW COMPLAINT VISIT Subjective CHIEF COMPLAINT She had concerns including Pain of the Left Knee. HISTORY OF PRESENT ILLINESS Ms. Benedict is a pleasant 85 year old female who presents to clinic with the complaint of left knee pain. She is status post left total knee arthroplasty by Dr. Garibay in February of 2017 with an excellent result. She is currently scheduled for a left total hip arthroplasty with Dr. Mckenzie on 09/15/21 and states that the symptoms in her knee began at the same time as the symptoms in her hip. She states the pain is diffuse, radiating through the thigh from the hip to the knee. The pain is worse with activity and improves at rest. She denies any fever, chills, night sweats, or other complaints at this time. Pain Assessment Pain Assessment: 0-10 Pain Score: 9 PAST MEDICAL HISTORY She has a past medical history of Arthritis of ankle, Basal cell carcinoma of nose (09/2008), Fibrocystic breast, GERD (gastroesophageal reflux disease), 4, not currently , Heel spur,unspecified laterality, rheumatic fever, OTHER MEDICAL (1991), OTHER MEDICAL, OTHER MEDICAL, OTHER MEDICAL, Hypertension, Joint pain (04/2002), Left foot pain (03/1999), Malignant melanoma (CMS/HCC) (), Menopause, Obesity, Restless leg, Right carpal tunnel syndrome, Superficial basal cell carcinoma (2002), and Tobacco use. PAST SURGICAL HISTORY She has a past surgical history that includes Breast biopsy (1994); knee arthroscopy (2002); Cholecystectomy (1991); Hand surgery (1975); Other surgical history (1991); Other surgical history (2002);knee arthroscopy; Hernia repair; Replacement total knee (Left, 02/07/2017); Bariatric Surgery (1983); FL Fluoro Guided Injection Hip Right (Right, 04/08/2019); Total hip arthroplasty (Right, 06/2019); and FL Fluoro Guided Injection Hip Left (Left, 01/28/2021). MEDICATIONS She has a current medication list which includes the following prescription(s): apixaban, biotin, cholecalciferol, felodipine, furosemide, guaifenesin er, pantoprazole dr, polyethylene glycol, pramipexole, propranolol, senna-docusate, spironolactone, tramadol, and albuterol hfa. ALLERGIES She is allergic to celecoxib, scopolamine, sulfa (sulfonamide antibiotics), amlodipine, lisinopril,trazodone, cymbalta [duloxetine], and sinemet [carbidopa-levodopa]. SOCIAL HISTORY She reports that she quit smoking about 30 years ago. She has never used smokeless tobacco. She reports previous alcohol use. She reports that she does not use drugs. FAMILY HISTORY Family History Problem Relation Age of Onset ??? Cancer Other Family history of Cancer, unknown; ??? Arthritis Other Family history of Arthritis; ??? Abdominal Aortic Aneurysm Father ??? COPD Father REVIEW OF SYSTEMS Review of Systems Constitutional: Negative for appetite change and fever. HENT: Negative for drooling, facial swelling and voice change. Eyes: Negative for discharge. Respiratory: Negative for apnea and wheezing. Cardiovascular: Negative for chest pain and palpitations. Gastrointestinal: Negative for abdominal distention and abdominal pain. Endocrine: Negative for polydipsia. Genitourinary: Negative for flank pain. Musculoskeletal: Positive for arthralgias and myalgias. Skin: Negative for color change and rash. Neurological: Negative for speech difficulty. Hematological: Does not bruise/bleed easily. Psychiatric/Behavioral: Negative for hallucinations. Objective PHYSICAL EXAM BP 132/86 Pulse 72 Ht 152.4 cm (5') Wt 85.3 kg (188 lb) LMP (LMP Unknown) BMI 36.72 kg/m?? Left hip Inspection Erythema: absent Edema: absent Swelling: absent Effusion: absent Skin temperature: normal Surgical scar/wound: absent. Gait: antalgic Limp: slight Supportive device: none Limb length: equal. Palpation Tenderness: absent. Radiating pain: no. Pop or click: no. Pelvic stability AP stress: stable Pelvic stability lateral stress: stable Range of motion The patient has reduced range of motion of the left hip. The patient has pain with range of motion of the left hip. Stability The patient has normal stability of the left hip. Strength The patient has 5/5 strength throughout. Neurovascular The patient has normal vascular on the left side of their body. The patient has normal sensation on the left side of their body. Tests Anterior impingement: positive Posterior impingement: positive Lateral impingement: positive Anterior apprehension: positive KYLE: positive Mariana's: negative Resisted SLR (straight leg raise): positive Left knee Inspection Erythema: absent Cellutlis: absent Swelling: absent Effusion: absent Surgical scar/wound: present. The surgical scar/wound is healed, well approxiamted and no evidence of infection. There is no drainage present. Skin temperature: normal Alignment: neutral Gait: antalgic Palpation Tenderness: present (Mildly). The tenderness is located in the condyle and tibial tubercle. Patellar tracking: normal Crepitus: negative Patella grind: negative Subluxation: negative Range of motion The patient has normal range of motion of the left knee. The patient does not have pain with range of motion of the left knee. Flexion contracture: no. Extensor lag: no. Stability AP stability: stable ML stability: stable Varus stress at 0 degrees: stable Valgus stress at 0 degrees: stable Varus stress at 30 degrees: stable Valgus stress at 30 degrees: stable Jo Ann: negative Anterior drawer: negative Posterior drawer: negative Strength The patient has 5/5 strength throughout. Neurovascular The patient has normal vascular on the left side of their body. The patient has normal sensation on the left side of their body. Special tests Patellar apprehension: negative REVIEW OF X-RAYS/STUDIES/LABS XR Knee Left 3 Views X-ray of the left knee viewed and interpreted. There is no evidence of fracture, subluxation, or bony abnormality. Knee arthroplasty in good position with no interval change. Assessment/Plan Tess was seen today for pain. Diagnoses and all orders for this visit: History of arthroplasty of left knee - XR Knee Left 3 Views Primary osteoarthritis of left hip Plan After thorough examination, I explained to Ms. Benedict that I feel her symptoms are all stemming from her advanced hip arthritis. I have ordered an ESR and CRP to rule out any infectious etiology although my clinical suspicion for this is low. Shall her symptoms fail to improve following her totalhip arthroplasty, we will plan to proceed with a bone scan in the future. She may contact the office with any further questions or concerns moving forward. TEO Todd Cosigned by Puma Mckenzie MD at 08/24/2021 4:30 PM ASSISTANT PLANT CONTROL OPERATOR STANT PLANT CONTROL OPERATOR STANT PLANT CONTROL OPERATOR documented in this encounter Miscellaneous Notes * Addendum Note - Roberto Jeffrey MA - 08/24/2021 1:15 PM CSTAddended by: ROBERTO JEFFREY on: 08/24/2021 02:10 PM Modules accepted: Orders STANT PLANT CONTROL OPERATOR documented in this encounter Plan of Treatment Not on file documented as of this encounter Procedures Procedure Name Priority Date/Time Associated Diagnosis Comments XR KNEE LEFT 3 VIEWS Schedule Routine, Read Routine (OP Routine) 08/24/2021 1:31 PM ASSISTANT PLANT CONTROL OPERATOR History of arthroplasty of left knee documented in this encounter Results * CRP (acute phase) (08/24/2021 2:19 PM ASSISTANT PLANT CONTROL OPERATOR) CRP 9.0 <=10.0 mg/L [facility] ([facility]) Blood 08/24/2021 2:19 PM ASSISTANT PLANT CONTROL OPERATOR 08/24/2021 3:23 PM ASSISTANT PLANT CONTROL OPERATOR Susy BRUCE LAB BLOOD ORDERABLES Final Result [facility] [address] [facility] [place] [address] * Erythrocyte sedimentation rate (08/24/2021 2:19 PM ASSISTANT PLANT CONTROL OPERATOR) Erythrocyte sedimentation rate 18 1 - 30 mm/hr [facility]) Blood 08/24/2021 2:19 PM ASSISTANT PLANT CONTROL OPERATOR 08/24/2021 3:23 PM ASSISTANT PLANT CONTROL OPERATOR Susy BRUCE LAB BLOOD ORDERABLES Final Result Performing Organization Address City/[facility] Co de Phone Number [facility] [address] [facility] [place] [address] * XR Knee Left 3 Views (08/24/2021 1:31 PM ASSISTANT PLANT CONTROL OPERATOR) Anatomical Region Laterality Modality Lower Extremities, Knee Left Digital Radiography Narrative 08/24/2021 2:03 PM ASSISTANT PLANT CONTROL OPERATOR X-ray of the left knee viewed and interpreted. ??There is no evidence of fracture, subluxation, or bony abnormality. Knee arthroplasty in good position with no interval change. Susy BRUCE IMG XR PROCEDURES Fin al Result documented in this encounter Visit Diagnoses Diagnosis History of arthroplasty of left knee- Primary Primary osteoarthritis of left hip documented in this encounter Care Teams Filling Mixer Relationship Specialty Start Date End Date Pepper Morgan MD PCP - General 09/16/16 Hank Garibay MD [address] [facility] [address] [address] Surgeon Orthopedic Surgery 03/27/17 Jacky Murry MD [address] [place] [address] [address] [address] Ophthalmology 03/27/17 Puma Mckenzie MD [address] [facility] [address] [address] Surgeon Orthopedic Surgery 07/11/19 documented as of this encounter
--- OUTSIDE RECORDS SUMMARY | 2024-06-18 18:59 | XMS_ITS | Encounter Summary ---
Author Organization [facility] Healthcare Address [address] [place] [address] Care Team Providers Care Rewards Consultant Name Role Phone Pepper Morgan MD Primary Care Provider + [phone] Hank Garibay MD Unavailable [phone] Jacky Murry MD Unavailable [phone] Puma Mckenzie MD Unavailable [phone] Encounter Details Date Type Department Care Team (Late st Contact Info) Description 05/31/2021 9:10 PM EARLY CHILDHOOD LEAD TEACHER Lab [address] [address] Atrial fibrillation, unspecified type (HCC); Medication monitoring encounter Social History Tobacco Use Types Packs/Day Years Used Date Smoking Tobacco: Former Cigarettes Q uit: 1992 Smokeless Tobacco: Never Alcohol Use Standard Drinks/Week Comments Not Currently 0 (1 standard drink = 0.6 oz pur e alcohol) PHQ-2 Answer Date Recorded PHQ-2 Total Score (If total score is 3 or more points, staff should administer the PHQ-9) 1 05/31/2021 Comments No Sex and Gender Information Value Date Recorded Sex Assigned at Not on file Legal Sex Female 4:33 AM EARLY CHILDHOOD LEAD TEACHER Gender Identity Not on file Sexual Orientation Not on file Occupation Industry Job Start Date Job End Date retired Not on file Not on file Not on file documented as of this encounter Miscellaneous Notes * Result Encounter Note - Pepper Morgan MD - 06/01/2021 8:47 PM EARLY CHILDHOOD LEAD TEACHER Inform her the blood test indicates she could use change in diuretic And the potassium is a bit too high. This will require a little medication adjustment 1. Increase Lasix to 40 mg every day--this may be taken at any time up until about 6:00 p.m., she may use up her 20 mg size pills and then send in a 40 mg for next refill 2. decrease Aldactone to 1/2 tablet every morning = 12.5 mg Recheck BNP and basic panel in about 2 weeks = acute on chronic diastolic heart failure Y CHILDHOOD LEAD TEACHER documented in this encounter Plan of Treatment Not on file documented as of this encounter Procedures Procedure Name Priority Date/Time Associated Diagnosis Comments EGFR Routine 05/31/2021 4:24 PM EARLY CHILDHOOD LEAD TEACHER Atrial fibrillation, unspecified type (HCC) Medication monitoring encounter DIFFERENTIAL AUTO Routine 05/31/2021 4:2 4 PM EARLY CHILDHOOD LEAD TEACHER Atrial fibrillation, unspecified type (HCC) Medication monitoring encounter PRO B-TYPE NATRIURETIC PEPTIDE Routine 05/31/2021 4:24 PM EARLY CHILDHOOD LEAD TEACHER Atrial fibrillation, unspecified type (HCC) Medication monitoring encounter CBC WITH AUTO DIFFERENTIAL Routine 05/31/2021 4:24 PM EARLY CHILDHOOD LEAD TEACHER Atrial fibrillation, unspecified type (HCC) Medication monitoring encounter BASIC METABOLIC PANEL Routine 05/31/2021 4:24 PM EARLY CHILDHOOD LEAD TEACHER Atrial fibrillation, unspecified type (HCC) Medication monitoring encounter documented in this encounter Results * eGFR (05/31/2021 4:24 PM EARLY CHILDHOOD LEAD TEACHER) eGFR 88 mL/min/1. 73 m2 [facility] Comment: Interpretive [...] interpretive data was last reviewed 2021. Blood 05/31/2021 4:24 PM EARLY CHILDHOOD LEAD TEACHER 05/31/2021 9:45 PM EARLY CHILDHOOD LEAD TEACHER us Pepper Morgan MD LAB BLOOD ORDERABLES Final Result [facility] [id number] [place] [address] * Differential, auto (05/31/2021 4:24 PM EARLY CHILDHOOD LEAD TEACHER) Neutrophil abs 5.3 1.7 - 6.5 K/cumm [facility] Imm gran abs 0.0 0.0 - 0.1 K/cumm [facility] Lymphocyte abs 1.6 0.8 - 3.3 K/cumm [facility] Monocyte abs 0.6 0.2 - 0.8 K/cumm [facility] Eosinophil abs 0.4 0.0 - 0.5 K/cumm [facility] Basophil abs 0.1 0.0 - 0.1 K/cumm [facility] Neutrophil pct 65.7 % [facility] Comment: Interpretive Data Percent cell count reference ranges are not reported, since discordance with absolute values may lead to misinterpretation of CBC data. Current Interpretive Data was last revised on 2017. Imm gran pct 0.4 % [facility] Comment: Interpretive Data Percent cell count reference ranges are not reported, since discordance with absolute values may lead to misinterpretation of CBC data. Current Interpretive Data was last revised on 2017. Lymphocyte pct 20.2 % [facility] Comment: Interpretive Data Percent cell count reference ranges are not reported, since discordance with absolute values may lead to misinterpretation of CBC data. Current Interpretive Data was last revised on 2017. Monocyte pct 7.7 % [facility] Comment: Interpretive Data Percent cell count reference ranges are not reported, since discordance with absolute values may lead to misinterpretation of CBC data. Current Interpretive Data was last revised on 2017. Eosinophil pct 5.0 % [facility] Comment: Interpretive Data Percent cell count reference ranges are not reported, since discordance with absolute values may lead to misinterpretation of CBC data. Current Interpretive Data was last revised on 2017. Basophil pct 1.0 % [facility] Comment: Interpretive Data Percent cell count reference ranges are not reported, since discordance with absolute values may lead to misinterpretation of CBC data. Current Interpretive Data was last revised on 2017. Blood 05/31/2021 4:24 PM EARLY CHILDHOOD LEAD TEACHER 05/31/2021 9:27 PM EARLY CHILDHOOD LEAD TEACHER us Pepper Morgan MD LAB BLOOD ORDERABLES Final Result Performing Organization Address City/State/[facility] Co id Phone Number [facility] [id number] [place] [address] * (ABNORMAL) Pro B-type natriuretic peptide (05/31/2021 4:24 PM EARLY CHILDHOOD LEAD TEACHER) NT-proBNP 1,611(H) <=450 pg/mL [facility] Comment: Interpretive Comments: A. [...] Interpretive Data Last Revised Date: 2018. Blood 05/31/2021 4:24 PM EARLY CHILDHOOD LEAD TEACHER 05/31/2021 9:27 PM EARLY CHILDHOOD LEAD TEACHER us Pepper Morgan MD LAB BLOOD ORDERABLES Final Result Performing Organization Address City/State/ZIP Co id Phone Number [facility] [id number] [place] [address] * (ABNORMAL) Basic metabolic panel (05/31/2021 4:24 PM EARLY CHILDHOOD LEAD TEACHER) Sodium 140 135 - 145 mmol/L [facility] Potassium, pl 5.4(H) 3.3 - 4.9 mmol/L [facility] Chloride 102 97 - 110 mmol/L [facility] CO2 28 22 - 32 mmol/L [facility] Anion gap 10 2 - 15 mmol/L [facility] BUN 15 8 - 25 mg/dL [facility] Creatinine 0.64 0.60 - 1.10 mg/dL [facility] Glucose 105 70 - 199 mg/dL [facility] Comment: [...] 2017. Calcium 9.6 8.5 - 10.3 mg/dL [facility] Blood 05/31/2021 4:24 PM EARLY CHILDHOOD LEAD TEACHER 05/31/2021 9:27 PM EARLY CHILDHOOD LEAD TEACHER us Pepper Morgan MD LAB BLOOD ORDERABLES Final Result [facility] [id number] [place] [address] * (ABNORMAL) CBC with auto differential (05/31/2021 4:24 PM EARLY CHILDHOOD LEAD TEACHER) WBC 8.0 3.8 - 9.9 K/cumm [facility] Hgb 14.3 11.9 - 15.5 g/dL [facility] Hct 44.7 35.6 - 45.5 % [facility] Plt 339 150 - 400 K/cumm [facility] MPV 9.6 9.1 - 12.3 fL [facility] RBC 4.99 3.90 - 5.20 M/cumm [facility] MCV 89.6 81.3 - 96.4 fL [facility] MCH 28.7 27.1 - 33.3 pg [facility] MCHC 32.0(L) 32.3 - 35.7 g/dL [facility] RDW CV 13.4 11.1 - 14.9 % [facility] RDW SD 44.4 35.7 - 48.1 fL [facility] NRBC abs 0.00 0.00 - 0.01 K/cumm [facility] Blood 05/31/2021 4:24 PM EARLY CHILDHOOD LEAD TEACHER 05/31/2021 9:27 PM EARLY CHILDHOOD LEAD TEACHER Pepper Morgan MD LAB BLOOD ORDERABLES Final Result [facility] [id number] [place] [address] documented in this encounter Visit Diagnoses Diagnosis Atrial fibrillation, unspecified type (HCC) Medication monitoring encounter Encounter for therapeutic drug monitoring documented in this encounter Care Teams Rewards Consultant Relationship Specialty Start Date End Date Pepper Morgan MD PCP - General 09/16/16 Hank Garibay MD [address] [facility] [address] [place] [address] Surgeon Orthopedic Surgery 03/27/17 Jacky Murry MD [address] [facility] [address] [place] [address] Ophthalmology 03/27/17 Puma Mckenzie MD [address] [place] [address] [address] [place] [address] Surgeon Orthopedic Surgery 07/11/19 documented as of this encounter
--- OUTSIDE RECORDS SUMMARY | 2024-06-18 18:59 | XMS_ITS | Encounter Summary ---
Author Organization [facility] Address [address] [place] [address] Care Team Providers Care Refractory Worker Name Role Phone Pepper Morgan MD Primary Care Provider + [phone] Hank Garibay MD Unavailable [phone] Jacky Murry MD Unavailable [phone] Puma Mckenzie MD Unavailable [phone] Reason for Visit * Reason Onset Date Comments IN [facility] ER NOW - WANTS [facility] ADVICE 09/15/2021 Encounter Details Date Type Department Care Team (Late st Contact Info) Description 09/15/2021 Telephone [facility] [address] [place] [phone] Pepper Morgan MD [address] [place] [address] IN 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 * Telephone Encounter - Pepper Morgan MD - 09/15/2021 2:10 PM CDT Advise risk benefit ratio to the use of the EpiPen should be considered before giving the treatment. In case of airway compromise that would be the only available intervention. Cause of the problem still needs to be sorted out before she is able to go home * Telephone Encounter - Charity Pinedo LPN - 09/15/2021 8:39 AM CDT Spoke with nurse, Martin, at [facility] ER [phone] to inform that [facility] recommending pt does NOT get Epi Penand that she should be admitted to ICU and given Dexamethasone with close monitoring. Martin voiced understanding of [facility] recommendations. However, Martin states that the ER physician will be treating pt with Epi Pen. FYI to [facility] * Telephone Encounter - Charity Pinedo LPN - 09/15/2021 8:31 AM CDT Pt [phone] called stating that she is at [facility] ER at this time and the ER physician is wanting to give her Epi Pen. Pt states she woke up at 3am today with her tongue swollen so her daughter took her to [facility] ER and she is still there now. Pt states the ER physician did give her Benadryl and Steroids but the swelling still has not come down. Pt states that the ER physician now wants to give her an Epi Pen which she was told could kill her because it increases the heart rate. Pt states she does notwant to take this medication without speaking to [facility] first because she is afraid after they told her it could kill her. Spoke with [facility] in person. Verbal recommendations per KMS = Pt should NOT get Epi Pen. Pt should be admitted to ICU for close following and given Dexamethasone. Informed pt of KMS recommendations and that the ER physician may call and speak with [facility] if they would like. Pt did voice understanding & had no further questions/concerns at this time. documented in this encounter Plan of Treatment Not on file documented as of this encounter Visit Diagnoses Not on filedocumented in this encounter Care Teams Refractory Worker Relationship Specialty Start Date End Date Pepper Morgan MD PCP - General 09/16/16 Hank Garibay MD [address] [facility] [address] [place] [address] Surgeon Orthopedic Surgery 03/27/17 Jacky Murry MD [address] [facility] [address] [place] [address] Ophthalmology 03/27/17 Puma Mckenzie MD [address] [facility] [address] [place] [address] Surgeon Orthopedic Surgery 07/11/19 documented as of this encounter
--- OUTSIDE RECORDS SUMMARY | 2024-06-18 18:59 | XMS_ITS | Encounter Summary ---
Author Organization [facility] Address [address] [facility] [address] [place] [address] Care Team Providers Care Technical Training Specialist Name Role Phone Pepper Morgan MD Primary Care Provider +- [phone] Hank Garibay MD Unavailable [phone] Jacky Murry MD Unavailable [phone] Puma Mckenzie MD Unavailable [phone] Encounter Details Date Type Department Care Team (Late st Contact Info) Description 09/01/2021 Telephone [facility] [address] [place] [id number] Pepper Morgan MD [address] [place] [address] Social History Tobacco Use Types Packs/Day Years [...] on file 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 Gender Identity Not on file Sexual Orientation Not on file Occupation Industry Job Start Date Job End Date retired Not on file Not on file Not on file documented as of this encounter Miscellaneous Notes * Telephone Encounter - Jacqueline Fuller NP - 09/01/2021 10:59 AM CDT Noted thank you * Telephone Encounter - Luis E Washington RN - 09/01/2021 10:56 AM CDT Spoke to pt et informed of below SHEET METAL PATTERN CUTTER message Pt voices understand et states she does not have a dentist, she wears dentures Pt will keep appt for tomorrow * Telephone Encounter - Jacqueline Fuller NP - 09/01/2021 10:05 AM CDT Yes it is necessary. She may want to see if she can get into her dentist as well. * Telephone Encounter - Katy Lopes RN - 09/01/2021 9:49 AM CDT TOANV: Called patient regarding facial swelling. Swelling is on the L side and put ice on it this am and no help. Face is slightly warm to tough, no redness. L lower gum and jaw are also swollen. Denied sob or swallowing difficulty. Patient is staying hydrated and BP runs 130/80's. Please advise. Scheduled patient for appt tomorrow but asked if it is necessary. Please advise. * Telephone Encounter - Vickie Araujo - 09/01/2021 9:03 AM CDT Patient calling and her face is swollen again. She did sleep on the right side of face last night. She doesn't know what to do. She did put ice chips on that side but it hasn't gone down. [facility] knows about this and so does oil fire specialist. She picked up some medications yesterday at the pharmacy and there was onethat she doesn't usually get it was a mucinex so she is not sure why she was given that. Kyle Pearson. Cbn: [phone] or [phone] documented in this encounter Plan of Treatment Not on file documented as of this encounter Visit Diagnoses Not on filedocumented in this encounter Care Teams Technical Training Specialist Relationship Specialty Start Date End Date Pepper Morgan MD PCP - General 09/16/16 Hank Garibay MD [address] [place] [address] [address] [address] Surgeon Orthopedic Surgery 03/27/17 Jacky Murry MD [address] [place] [address] [address] [address] Ophthalmology 03/27/17 Puma Mckenzie MD [address] [place] [address] [address] [facility] [address] [place] [address] Surgeon Orthopedic Surgery 07/11/19 documented as of this encounter
--- OUTSIDE RECORDS SUMMARY | 2024-06-18 18:59 | XMS_ITS | Encounter Summary ---
Author Organization [facility] Address [address] [facility] [address] [place] [address] Care Team Providers Care Lead Sharepoint Developer Name Role Phone Pepper Morgan MD Primary Care Provider + [phone] Hank Garibay MD Unavailable [phone] Jacky Murry MD Unavailable [phone] Puma Mckenzie MD Unavailable [phone] Reason for Visit * Reason Comments Follow-up 3 month Encounter Details Date Type Department Care Team (Late st Contact Info) Description 08/23/2021 11:00 AM QUARTER SUPERVISOR Office Visit [facility] [address] [place] [address] Pepper Morgan MD [address] [place] [address] Preoperative evaluation of a medical condition to rule out surgical contraindications (TAR required) (Primary Dx); Hip arthritis; Dysfunction of both eustachian tubes; Atrial fibrillation, unspecified type (HCC); Sinus bradycardia; 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; Restless legs syndrome; Parkinson's disease (tremor, stiffness, slow motion, unstable posture) (CMS/HCC) (HCC); Chronic GERD; Hereditary essential tremor; Spinal stenosis of lumbar region with neurogenic claudication; Cervical radiculopathy; Lymphedema Social History Tobacco Use Types Packs/Day Years [...] on file Legal Sex Female 4:33 AM QUARTER SUPERVISOR Gender Identity Not on file Sexual Orientation Not on file Occupation Industry Job Start Date Job End Date retired Not on file Not on file Not on file documented as of this encounter Last Filed Vital Signs Vital Sign Reading Time Taken Comments Blood Pressure 170/88 08/23/2021 11:04 AM QUARTER SUPERVISOR Pulse 73 08/23/2021 11:04 AM QUARTER SUPERVISOR Temperature 36.2 ??C (97.1 ??F) 08/23/2021 11:[address] Respiratory Rate 12 08/23/2021 11:04 AM QUARTER SUPERVISOR Oxygen Saturation 98% 08/23/2021 11:04 AM QUARTER SUPERVISOR Inhaled Oxygen Concentration - - Weight 85.7 kg (189 lb) 08/23/2021 11:04 AM QUARTER SUPERVISOR Height - - Body Mass Index 36.91 08/11/2021 8:56 AM QUARTER SUPERVISOR documented in this encounter Patient Instructions * Patient Instructions* Pepper Morgan MD - 08/23/2021 11:00 AM QUARTER SUPERVISOR ORDERS FOR AMS STAFF TO ARRANGE 1. Please have MA remove the designation and she is ???not taking?? Plendil = Filodipine 5 mg. Sheis resuming with Plendil today 2. Give her a blood pressure recording sheet 3. She has a preoperative medical paper from Dr. Mckenzie that I signed, she needs to take the original we need a copy for epic scanning and for Marilee--please advise if were to fill this out or some other form? ORDERS FOR Tess Benedict TO ARRANGE 1. Immunization recommendations: Tdap at the pharmacy today 2. Medication changes Resume Filodipine = Plendil 5 mg daily for blood pressure RHINITIS Give her a blood pressure recording sheet CARE FOR THE EAR CONGESTION WHICH IS EUSTACHIAN TUBE DYSFUNCTION Mucus relief 600 ER tab twice daily until the ears clear then as needed Resume sinus rinse every morning Consider Flonase 2 puffs every morning until the ears clear Patient Care Team: Pepper Morgan MD as PCP - General [facility], Hank Mccauley MD as Surgeon (Orthopedic Surgery) Jacky Murry MD (Ophthalmology) Puma Mckenzie MD as Surgeon (Orthopedic Surgery) Return in about 3 months (around 12/01/2021) for Recheck the new left hip replacement, restless leg,medical problem. No orders of the defined types were placed in this encounter. A brief review of all your problems, medications, and orders from today ICD-9-CM ICD-10-CM 1. Preoperative evaluation of a medical condition to rule out surgical contraindications (TAR required) V72.83 Z01.818 2. Hip arthritis 716.95 M16.10 traMADoL (ULTRAM) 50 mg tablet 3. Dysfunction of both eustachian tubes 381.81 H69.83 guaiFENesin ER (MUCINEX) 600 mg 12 hr tablet 4. Atrial fibrillation, unspecified type (HCC) 427.31 I48.91 5. Sinus bradycardia 427.89 R00.1 6. 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 401.1 I10 furosemide (LASIX) 40 mg tablet spironolactone (Aldactone) 25 mg tablet felodipine (PLENDIL) 5 mg 24 hr tablet 7. Restless legs syndrome 333.94 G25.81 pramipexole (MIRAPEX) 0.125 mg tablet 8. Parkinson's disease (tremor, stiffness, slow motion, unstable posture) (CMS/HCC) (HCC) 332.0 D88iseuvzzaxtv (MIRAPEX) 0.125 mg tablet 9. Chronic GERD 530.[address] (PROTONIX) 20 mg EC tablet 10. Hereditary essential tremor 333.1 G25.0 propranoloL (INDERAL) 20 mg tablet 11. Spinal stenosis of lumbar region with neurogenic claudication 724.03 M48.062 traMADoL (ULTRAM) 50 mg tablet 12. Cervical radiculopathy 723.4 M54.12 traMADoL (ULTRAM) 50 mg tablet 13. Lymphedema 457.1 I89.0 For your records I have provided this [...] Pneumococcal Polysaccharide PPV23 05/17/2002, 04/26/2016 ??? Tdap 05/18/2011 ??? ZOSTER Recombinant 12/02/2020, 02/23/2021 Primary Pharmacy/DME suppliers: [id number] - [place] - [address] [place] [address] [place] [address] [place] [address] PLEASE BRING IN ALL PILL BOTTLES TO EVERY OFFICE VISIT, THIS IS ESSENTIAL FOR ACCURATE REFILLS AND MAINTAINING AN ACCURATE MEDICATION LIST. PLEASE SIGN UP FOR [facility] so that you may have access to your labs and chart documentation IF YOU HAVE TROUBLE WITH THIS PROCESS CALL [phone] TER SUPERVISOR TER SUPERVISOR TER SUPERVISOR TER SUPERVISOR TER SUPERVISOR TER SUPERVISOR TER SUPERVISOR TER SUPERVISOR TER SUPERVISOR documented in this encounter Ordered Prescriptions Prescription Sig Dispense Quantity Refills Last Filled Start Date End Date guaiFENesin ER (MUCINEX) 600 mg 12 hr tabletIndications:D ysfunction of both eustachian tubes Take 1 tablet (600 mg total) by mouth 2 (two) times a day 60 tablet 3 08/23/2021 2 felodipine (PLENDIL) 5 mg 24 hr tabletIndications:B enign hypertension Take 1 tablet (5 mg total) by mouth daily 90 tablet 1 08/23/2021 2 spironolactone (Aldactone) 25 mg tabletIndications:B enign hypertension Take 0.5 tablets (12.5 mg total) by mouth daily Take 1/2 tablet daily 50 tablet 1 08/23/2021 2 traMADoL (ULTRAM) 50 mg tabletIndications:H ip arthritis,Spinal stenosis of lumbar region with neurogenic claudication,Cervic al radiculopathy Take 0.5-1 tablets (25-50 mg total) by mouth 2 (two) times a day 40 tablet 5 08/23/2021 2 propranoloL (INDERAL) 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:H ereditary essential tremor Take 1 tablet (20 mg total) by mouth 2 (two) times a day as needed (Tremor) 180 tablet 1 08/23/[address] (PROTONIX) 20 mg EC tabletIndications:C hronic GERD Take 1 tablet (20 mg total) by mouth daily With the largest meal 90 tablet 1 08/23/2021 2 pramipexole (MIRAPEX) 0.125 mg tabletIndications:I diopathic Parkinsonism,Restle ss Legs Syndrome Take 1 tablet (0.125 mg total) by mouth 3 (three) times a day Take at 9:00 a.m., 3:00 p.m., 9:00 p.m. 270 tablet 1 08/23/2021 2 furosemide (LASIX) 40 mg tabletIndications:B enign hypertension Take 1 tablet (40 mg total) by mouth daily 90 tablet 1 08/23/2021 2 documented in this encounter Progress Notes * Pepper Morgan MD - 08/23/2021 11:00 AM CST ASSESSMENT AND PLAN Patient Instructions ORDERS FOR AMS STAFF TO ARRANGE 1. Please have MA remove the designation and she is ???not taking?? Plendil = Filodipine 5 mg. Sheis resuming with Plendil today 2. Give her a blood pressure recording sheet 3. She has a preoperative medical paper from Dr. Mckenzie that I signed, she needs to take the original we need a copy for epic scanning and for Marilee--please advise if were to fill this out or some other form? ORDERS FOR Tess Benedict TO ARRANGE 1. Immunization recommendations: Tdap at the pharmacy today 2. Medication changes Resume Filodipine = Plendil 5 mg daily for blood pressure RHINITIS Give her a blood pressure recording sheet CARE FOR THE EAR CONGESTION WHICH IS EUSTACHIAN TUBE DYSFUNCTION Mucus relief 600 ER tab twice daily until the ears clear then as needed Resume sinus rinse every morning Consider Flonase 2 puffs every morning until the ears clear Patient Care Team: Pepper Morgan MD as PCP - General [place], Hank Mccauley MD as Surgeon (Orthopedic Surgery) Jacky Murry MD (Ophthalmology) Puma Mckenzie MD as Surgeon (Orthopedic Surgery) Return in about 3 months (around 12/01/2021) for Recheck the new left hip replacement, restless leg,medical problem. No orders of the defined types were placed in this encounter. A brief review of all your problems, medications, and orders from today ICD-9-CM ICD-10-CM 1. Preoperative evaluation of a medical condition to rule out surgical contraindications (TAR required) V72.83 Z01.818 2. Hip arthritis 716.95 M16.10 traMADoL (ULTRAM) 50 mg tablet 3. Dysfunction of both eustachian tubes 381.81 H69.83 guaiFENesin ER (MUCINEX) 600 mg 12 hr tablet 4. Atrial fibrillation, unspecified type (HCC) 427.31 I48.91 5. Sinus bradycardia 427.89 R00.1 6. 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 401.1 I10 furosemide (LASIX) 40 mg tablet spironolactone (Aldactone) 25 mg tablet felodipine (PLENDIL) 5 mg 24 hr tablet 7. Restless legs syndrome 333.94 G25.81 pramipexole (MIRAPEX) 0.125 mg tablet 8. Parkinson's disease (tremor, stiffness, slow motion, unstable posture) (CMS/HCC) (HCC) 332.0 C14oicswltawcu (MIRAPEX) 0.125 mg tablet 9. Chronic GERD 530.[address] (PROTONIX) 20 mg EC tablet 10. Hereditary essential tremor 333.1 G25.0 propranoloL (INDERAL) 20 mg tablet 11. Spinal stenosis of lumbar region with neurogenic claudication 724.03 M48.062 traMADoL (ULTRAM) 50 mg tablet 12. Cervical radiculopathy 723.4 M54.12 traMADoL (ULTRAM) 50 mg tablet 13. Lymphedema 457.1 I89.0 For your records I have provided this [...] Pneumococcal Polysaccharide PPV23 05/17/2002, 04/26/2016 ??? Tdap 05/18/2011 ??? ZOSTER Recombinant 12/02/2020, 02/23/2021 Primary Pharmacy/DME suppliers: [id number] - [place] - [address] [place] [address] PLEASE BRING IN ALL PILL BOTTLES TO EVERY OFFICE VISIT, THIS IS ESSENTIAL FOR ACCURATE REFILLS AND MAINTAINING AN ACCURATE MEDICATION LIST. PLEASE SIGN UP FOR [facility] so that you may have access to your labs and chart documentation IF YOU HAVE TROUBLE WITH THIS PROCESS CALL [phone] CHIEF COMPLAINT Follow-up (3 month) HISTORY OF PRESENT ILLNESS Tess Benedict returns today for her 3 month follow-up to review Chronic medical problems and [...] information. ORDERS FROM LAST VISIT WITH ME 05/31/[address] Deshpande evaluate for tremor, family is concerned she has Parkinson's WHICH IS NOW CONTROLLED ON PRAMIPEXOLE USED FOR Parkinson's and her restless leg. She has essential tremor. Family would like preoperative clearance for left hip replacement surgery before the allow her to have her hip replaced in June 2. Refer to Dr. Mckenzie June 2019 to evaluate for left hip replacement surgery when she is on her new insurance 3. LABS FOR TODAY and before the 3 month follow-up = BNP, CBC, basic panel = atrial fibrillation, medication monitor ? ORDERS FOR Tess Limonmarybethjaylene TO ARRANGE 1. Immunization recommendation Tdap at the pharmacy before the end of the year Please get us information on the 3rd COVID shot ?? 2. Medication change No medication changes are required, you may take medicines as prescribed especially the pramipexoleto keep the restless leg under control ?? 3. Severe left hip Refer to Dr. Mckenzie to set you up in June for left hip replaced You are medically cleared at this time with respect To restless leg, blood pressure, atrial fibrillation, and have no intervening problems that interfere with the safety of your upcoming surgery. Because her family is interested in a Neurology evaluation for Parkinson's will ask Dr. Deshpande to provide neurologic clearance for a left hip replacement herein May to be ready for the June surgery DETAILS REGARDING THIS VISIT: Tess reports feeling well except for the increasing pain left knee and difficulty walking : 1. Preoperative evaluation of a medical condition to rule out surgical contraindications (TAR required) Medically her this time to proceed to have a left hip replacement surgery. Our only problem will beshort suspension of Eliquis 2 days before surgery through the surgical perioperative. With resumption as soon as bleeding risk is gone. 2. These Following problems are her active orthopedic issues ; Hip arthritis 11. Spinal stenosis of lumbar region with neurogenic claudication 12. Cervical radiculopathy She had no response to the cortisone injection left hip. She believes the problem is her hip but I do not think we can really sort out whether it is lumbar spine her hip and will await consultation from Dr. Mckenzie to determine which is causing her problem whether the back needs to be addressed before hip surgery. With respect to her medical advisability for surgery she is a good surgical candidate. She is to avoid anticholinergic medication and notably had a delirium reaction to stop transdermscopolamine patch at her last orthopedic surgery. She will continue tramadol for now. This is a good postoperative pain medicine for her as it she tolerates this without nausea vomiting traMADoL (ULTRAM) 50 mg tablet; Take 0.5-1 tablets (25-50 mg total) by mouth 2 (two) times a day Dispense: 40 tablet; Refill: 5 3. Dysfunction of both eustachian tubes She does not have an ear infection she is advised to get back on the rhinitis care with sinus rinseFlonase mucus relief guaiFENesin ER (MUCINEX) 600 mg 12 hr tablet; Take 1 tablet (600 mg total) by mouth 2 (two) times aday Dispense: 60 tablet; Refill: 3 4. Atrial fibrillation, unspecified type (HCC) 5. Sinus bradycardiaHeart rate well controlled cannot tolerate more than 20 mg b.i.d. propranolol due to her previous bradycardia 6. 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 13. Lymphedema 10. Hereditary essential tremor Plendil was suspended at last visit because of the lymphedema however did not really make a difference. She has localized lymphedema left lower extremity which she is not using as much. I suspect this is simply a physical related issue that should improve after hip replacement in improved walking. She will continue Lasix 40 mg Aldactone 12.5 resume the Plendil and keep on her Inderal which is also used to control her tremor furosemide (LASIX) 40 mg tablet; Take 1 tablet (40 mg total) by mouth daily Dispense: 90 tablet; Refill: 1 spironolactone (Aldactone) 25 mg tablet; Take 0.5 tablets (12.5 mg total) by mouth daily Take 1/2 tablet daily Dispense: 50 tablet; Refill: 1 felodipine (PLENDIL) 5 mg 24 hr tablet; Take 1 tablet (5 mg total) by mouth daily Dispense: 90 tablet; Refill: 1 7. Restless legs syndrome 8. Parkinson's disease (tremor, stiffness, slow motion, unstable posture) (CMS/HCC) (HCC) Her Parkinson's tremors completely resolved with the use of the Mirapex for her restless leg pramipexole (MIRAPEX) 0.125 mg tablet; Take 1 tablet (0.125 mg total) by mouth 3 (three) times a day Take at 9:00 a.m., 3:00 p.m., 9:00 p.m. Dispense: 270 tablet; Refill: 1 9. Chronic GERD Protonix will be used through the perioperative., she has no acid reflux symptoms at this time and no GI intolerance to food at the moment pantoprazole DR (PROTONIX) 20 mg EC tablet; [...] of Systems Constitutional: Positive for activity change (Less active because of the left hip pain radiating down to the knee). Negative for appetite change, fatigue, fever and unexpected weight change. HENT: Negative for congestion, dental problem, hearing loss, postnasal drip, sinus pressure, sore throat and trouble swallowing. Eyes: Negative for pain, discharge, itching and visual disturbance. Respiratory: Negative for cough, chest tightness, shortness of breath and wheezing. Cardiovascular: Negative for chest pain and palpitations. Blood pressures have been elevated and her swelling is no better off little then when she was taking under 5 mg daily Gastrointestinal: Negative for abdominal distention, abdominal pain, anal bleeding, blood in stool,constipation, diarrhea, nausea, rectal pain and vomiting. Endocrine: Negative for cold intolerance, heat intolerance and polyuria. Genitourinary: Negative for difficulty urinating, dysuria, flank pain, frequency, hematuria, menstrual problem, pelvic pain and vaginal discharge. Musculoskeletal: Positive for arthralgias ( left hip to knee), gait problem and myalgias ( restlessleg starts a little bit afternoon requires a total of up to 3 Mirapex through the evening). Negative for back pain and joint swelling. Skin: Negative for color change and rash. Neurological: Negative for dizziness, weakness and headaches. Hematological: Negative for adenopathy. Does not bruise/bleed easily. Psychiatric/Behavioral: Negative for behavioral problems, dysphoric mood and sleep disturbance. Thepatient is not nervous/anxious. MEDICATIONS CHANGED / CLEANED UP THIS VISIT Medications Discontinued During This Encounter Medication Reason ??? propranoloL (INDERAL) 20 mg tablet Reorder ??? felodipine (PLENDIL) 5 mg 24 hr tablet Reorder ??? pantoprazole DR (PROTONIX) 20 mg EC tablet Reorder ??? pramipexole (MIRAPEX) 0.125 mg tablet Reorder ??? traMADoL (ULTRAM) 50 mg tablet Reorder ??? spironolactone (Aldactone) 25 mg tablet Reorder ??? furosemide (LASIX) 40 mg tablet Reorder ??? guaiFENesin 1,200 mg tablet extended release 12hr MEDICATION LIST AT CONCLUSION OF THIS VISIT Current Outpatient Medications Ordered in [facility] Medication Sig Dispense Refill ??? apixaban (ELIQUIS) 5 mg tablet Take 1 tablet (5 mg total) by mouth 2 (two) times a day 60 tablet 11 ??? biotin 10,000 mcg capsule Take by mouth ??? cholecalciferol (VITAMIN D-3) 2000 unit tablet Take 2,000 Units by mouth daily ??? polyethylene glycol (MIRALAX) 17 gram packet Take 1 packet (17 g total) by mouth daily ??? senna-docusate (Senna-S) 8.6-50 mg Take 1 tablet by mouth daily 90 tablet 1 ??? albuterol HFA (Proventil HFA) 90 mcg/actuation inhaler Inhale 2 puffs every 6 (six) hours as needed for wheezing or shortness of breath (Patient not taking: Reported on 08/23/2021) 6.7 g 0 ??? felodipine (PLENDIL) 5 mg 24 hr tablet Take 1 tablet (5 mg total) by mouth daily 90 tablet 1 ??? furosemide (LASIX) 40 mg tablet Take 1 tablet (40 mg total) by mouth daily 90 tablet 1 ??? guaiFENesin ER (MUCINEX) 600 mg 12 hr tablet Take 1 tablet (600 mg total) by mouth 2 (two) times a day 60 tablet 3 ??? pantoprazole DR (PROTONIX) 20 mg EC [...] ??? traMADoL (ULTRAM) 50 mg tablet Take 0.5-1 tablets (25-50 mg total) by mouth 2 (two) times a day40 tablet 5 No current Epic-ordered facility-administered medications on file. ALLERGIES is allergic to celecoxib, scopolamine, sulfa (sulfonamide antibiotics), amlodipine, lisinopril, trazodone, cymbalta [duloxetine], and sinemet [carbidopa-levodopa]. PHYSICAL EXAM body mass index is 36.91 kg/m??. Vitals: 08/23/21 1104 BP: 170/88 BP Location: Left arm Patient Position: Sitting Pulse: 73 Resp: 12 Temp: 36.2 ??C (97.1 ??F) TempSrc: Temporal SpO2: 98% Weight: 85.7 kg (189 lb) Physical Exam [...] murmur heard. No gallop. Comments: Blood pressure a bit too elevated 148/88 Pulmonary: Effort: Pulmonary effort is normal. Breath sounds: Normal breath sounds. No wheezing, rhonchi or rales. Abdominal: General: Bowel sounds are normal. There is no distension. Palpations: Abdomen is soft. There is no mass. Tenderness: There is no abdominal tenderness. Hernia: No hernia is present. Musculoskeletal: General: Tenderness ( surrounding the left hip joint down to the knee) and deformity ( genu varus deformity, ankylosis multiple joints) present. Cervical back: Neck supple. Right lower leg: No edema (Trace pretibial edema left leg). Left lower leg: No edema. Comments: Continues to have atrophy of her hand from her previous neck related issues Lymphadenopathy: Cervical: No cervical adenopathy. Skin: General: Skin is warm and dry. Findings: No erythema, lesion or rash. Neurological: General: No focal deficit present. Mental Status: She is alert and oriented to person, place, and time. Mental status is at baseline. Cranial Nerves: No cranial nerve deficit. Motor: Weakness present. No abnormal muscle tone. Coordination: Coordination normal. Gait: Gait abnormal ( requires use of her walker). Psychiatric: Mood and Affect: Mood normal. Behavior: [...] BLOOD WORK REVIEWED WITH Tess Benedict TODAY Conclusions: Normal left ventricular systolic function with [...] calcifications in ascending aorta with normal caliber. Component Date Value Ref Range Status ??? [...] 04/21/2021 Presumptive Negative Presumptive Negative, Invalid Final Clinical Support on 04/20/2021 Component Date Value Ref Range Status ??? COVID-19 Ag POC (BD Veritor) 04/20/2021 Presumptive Negative Presumptive Negative, Invalid Final Lab on 01/08/2021 Component Date Value Ref Range Status ??? Sodium 01/08/2021 133 (A) 135 - 145 mmol/L Final ??? Potassium, pl 01/08/2021 4.7 3.3 - 4.9 mmol/L Final ??? Chloride 01/08/2021 97 97 - 110 mmol/L Final ??? CO2 01/08/2021 26 22 - 32 mmol/L Final ??? Anion gap 01/08/2021 10 2 - 15 mmol/L Final ??? BUN 01/08/2021 13 8 - 25 mg/dL Final ??? Creatinine 01/08/2021 0.58 (A) 0.60 - 1.10 mg/dL Final ??? Glucose 01/08/2021 80 70 - 199 mg/dL Final ??? Calcium 01/08/2021 9.2 8.5 - 10.3 mg/dL Final ??? WBC 01/08/2021 7.6 3.8 - 9.9 K/cumm Final ??? Hgb 01/08/2021 14.3 11.9 - 15.5 g/dL Final ??? Hct 01/08/2021 45.8 (A) 35.6 - 45.5 % Final ??? Plt 01/08/2021 370 150 - 400 K/cumm Final ??? MPV 01/08/2021 9.5 9.1 - 12.3 fL Final ??? RBC 01/08/2021 5.05 3.90 - 5.20 M/cumm Final ??? MCV 01/08/2021 90.7 81.3 - 96.4 fL Final ??? MCH 01/08/2021 28.3 27.1 - 33.3 pg Final ??? MCHC 01/08/2021 31.2 (A) 32.3 - 35.7 g/dL Final ??? RDW CV 01/08/2021 13.8 11.1 - 14.9 % Final ??? RDW SD 01/08/2021 46.2 35.7 - 48.1 fL Final ??? NRBC abs 01/08/2021 0.00 0.00 - 0.01 K/cumm Final ??? Neutrophil abs 01/08/2021 5.1 1.7 - 6.5 K/cumm Final ??? Imm gran abs 01/08/2021 0.0 0.0 - 0.1 K/cumm Final ??? Lymphocyte abs 01/08/2021 1.3 0.8 - 3.3 K/cumm Final ??? Monocyte abs 01/08/2021 0.6 0.2 - 0.8 K/cumm Final ??? Eosinophil abs 01/08/2021 0.5 0.0 - 0.5 K/cumm Final ??? Basophil abs 01/08/2021 0.1 0.0 - 0.1 K/cumm Final ??? Neutrophil pct 01/08/2021 67.2 % Final ??? Imm gran pct 01/08/2021 0.5 % Final ??? Lymphocyte pct 01/08/2021 17.7 % Final ??? Monocyte pct 01/08/2021 7.8 % Final ??? Eosinophil pct 01/08/2021 6.1 % Final ??? Basophil pct 01/08/2021 0.7 % Final ??? eGFR 01/08/2021 85 mL/min/1.73 m2 Final Lab on 11/30/2020 Component Date Value Ref Range Status ??? Thyroid Stimulating Hormone 11/30/2020 3.18 0.30 - 4.20 mcIUnit/mL Final ??? Free T4 11/30/2020 1.29 0.90 - 1.70 ng/dL Final There may be more visits with [...] (HCC) I48.91 ??? Left facial swelling R22.0 Pepper Morgan M.D. TER SUPERVISOR documented in this encounter Plan of Treatment Not on file documented as of this encounter Visit Diagnoses Diagnosis Preoperative evaluation of a medical condition to rule out surgical contraindications (TAR required)- Primary Hip arthritis Unspecified arthropathy, pelvic region and thigh Dysfunction of both eustachian tubes Atrial fibrillation, unspecified type (HCC) Sinus bradycardia Other specified cardiac dysrhythmias 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 Essential hypertension, benign Restless legs syndrome Restless legs syndrome (RLS) Parkinson's disease (tremor, stiffness, slow motion, unstable posture) (HCC) Paralysis agitans Chronic GERD Hereditary essential tremor Essential and other specified forms of tremor Spinal stenosis of lumbar region with neurogenic claudication Cervical radiculopathy Brachial neuritis or radiculitis nos Lymphedema Other noninfectious lymphedema documented in this encounter Discontinued Medications Medication Sig Discontinue Reason Start Date End Da te propranoloL (INDERAL) 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:Heredita ry essential tremor Take 1 tablet (20 mg total) by mouth 2 (two) times a day as needed (Tremor) Reorder 05/31/2021 08/23/2021 felodipine (PLENDIL) 5 mg 24 hr tabletIndications: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 Take 1 tablet (5 mg total) by mouth daily Reorder 05/31/2021 08/23/[address] (PROTONIX) 20 mg EC tabletIndications:Chronic GERD Take 1 tablet (20 mg total) by mouth daily With the largest meal Reorder 05/31/2021 08/23/2021 pramipexole (MIRAPEX) 0.125 mg tabletIndications:Idiopath ic Parkinsonism,Restless Legs Syndrome Take 1 tablet (0.125 mg total) by mouth 3 (three) times a day Take at 9:00 a.m., 3:00 p.m., 9:00 p.m. Reorder 05/31/2021 08/23/2021 traMADoL (ULTRAM) 50 mg tabletIndications:Spinal stenosis of lumbar region with neurogenic claudication,Cervical radiculopathy,Hip arthritis Take 0.5-1 tablets (25-50 mg total) by mouth 2 (two) times a day Reorder 05/31/2021 08/23/2021 spironolactone (Aldactone) 25 mg tabletIndications: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 Take 1/2 tablet daily Reorder 06/02/2021 08/23/2021 furosemide (LASIX) 40 mg tablet Take 1 tablet (40 mg total) by mouth daily Reorder 06/03/2021 08/23/2021 guaiFENesin 1,200 mg tablet extended release 12hrIndications:Acute bacterial rhinosinusitis Take 1 tablet by mouth 2 (two) times a day 06/02/2020 07/02/2020 documented as of this encounter Care Teams Lead Sharepoint Developer Relationship Specialty Start Date End Date Pepper Morgan MD PCP - General 09/16/16 Hank Garibay MD [address] [facility] [address] [place] [address] Surgeon Orthopedic Surgery 03/27/17 Jacky Murry MD [address] [facility] [address] WARN[address] [place] [address] Ophthalmology 03/27/17 Puma Mckenzie MD [address] [facility] [address] [place] [address] Surgeon Orthopedic Surgery 07/11/19 documented as of this encounter
--- OUTSIDE RECORDS SUMMARY | 2024-06-18 18:59 | XMS_ITS | Encounter Summary ---
Author Organization [facility] Address [address] [facility] [address] [place] [address] Care Team Providers Care Reserves Clerk Name Role Phone Pepper Morgan MD Primary Care Provider [phone]- [phone] Hank Garibay MD Unavailable [phone] Jacky Murry MD Unavailable [phone] Puma Mckenzie MD Unavailable [phone] Encounter Details Date Type Department Care Team (Late st Contact Info) Description 08/26/2021 Telephone [facility] [address] [place] [id number] Pepper Morgan MD [address] [place] [address] Social History Tobacco Use Types Packs/Day Years [...] on file Legal Sex Female 4:33 AM LITHOPONE CHARGER Gender Identity Not on file Sexual Orientation Not on file Occupation Industry Job Start Date Job End Date retired Not on file Not on file Not on file documented as of this encounter Miscellaneous Notes * Telephone Encounter - Katy Lopes RN - 08/26/2021 2:55 PM LITHOPONE CHARGER Called patient and confirmed that the only symptoms she has is currently in her hand. Denied sob or wheezing. Patient given previous message from NOEL Phillips and patient will try the Claritin and keep her hand elevated and iced. Patient will go to urgent care for worsening of symptoms or if new symptoms develop. Offered appt tomorrow with NOEL Phillips and she declined. OPONE CHARGER * Telephone Encounter - Jacqueline Fuller NP - 08/26/2021 2:36 PM LITHOPONE CHARGER I'm sorry but I am having trouble following this phone train. She needs a sick visit to figure out what is going on. She can do OTC benadryl or a non-sedating antihistamine like claritin, continue with ice and elevation. If progressing or other symptoms needs to have evaluate in urgent care or ER sooner OPONE CHARGER * Telephone Encounter - Katy Lopes RN - 08/26/2021 1:54 PM LITHOPONE CHARGER Called patient regarding previous message. Patient confirmed the following symptoms: Itching Redness Swelling/puffiness in palm and top of hand Had some warmth this am Denied: Pain Rash Open areas Had a recent cut there but it is healed. Symptoms started this am. Patient applying ice. Has not taken anything. Please advise. Patient preferred not to have steroids. No available appt today. OPONE CHARGER * Telephone Encounter - Vickie Araujo - 08/26/2021 1:21 PM CST Patient had a tetnus shot on Monday and now her right hand is swollen and that is the arm she got the shot in. She didn't know if that would have caused it? She had a test at Dr Brown office on Monday they wanted to rule out infection in the blood before she has surgery in her hip. Cbn: [phone] OPONE CHARGER documented in this encounter Plan of Treatment Not on file documented as of this encounter Visit Diagnoses Not on filedocumented in this encounter Care Teams Reserves Clerk Relationship Specialty Start Date End Date Pepper Morgan MD PCP - General 09/16/16 Hank Garibay MD [address] [facility] [address] [place] [address] Surgeon Orthopedic Surgery 03/27/17 Jacky Murry MD [address] [facility] [address] [place] [address] Ophthalmology 03/27/17 Puma Mckenzie MD [address] [facility] [address] [place] [address] Surgeon Orthopedic Surgery 07/11/19 documented as of this encounter
--- OUTSIDE RECORDS SUMMARY | 2024-06-18 18:59 | XMS_ITS | Encounter Summary ---
Author Organization [facility] Healthcare Address [address] [place] [address] Care Team Providers Care Mobile Security Architect Name Role Phone Pepper Morgan MD Primary Care Provider + [phone] Hank Garibay MD Unavailable [phone] Jacky Murry MD Unavailable [phone] Puma Mckenzie MD Unavailable [phone] Encounter Details Date Type Department Care Team (Late st Contact Info) Description 05/24/2021 5:00 PM MATHEMATICS EDUCATION PROFESSOR Lab [address] [address] 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 Social History Tobacco Use Types Packs/Day Years Used Date Smoking Tobacco: Former Cigarettes Q uit: 1991 Smokeless Tobacco: Never Alcohol Use Standard Drinks/Week Comments Not Currently 0 (1 standard drink = 0.6 oz pur e alcohol) PHQ-2 Answer Date Recorded PHQ-2 Total Score (If total score is 3 or more points, staff should administer the PHQ-9) 0 05/26/2020 Comments No Sex and Gender Information Value Date Recorded Sex Assigned at Not on file Legal Sex Female 4:33 AM MATHEMATICS EDUCATION PROFESSOR Gender Identity Not on file Sexual Orientation Not on file Occupation Industry Job Start Date Job End Date retired Not on file Not on file Not on file documented as of this encounter Plan of Treatment Not on file documented as of this encounter Procedures Procedure Name Priority Date/Time Associated Diagnosis Comments EGFR Routine 05/24/2021 12:51 PM MATHEMATICS EDUCATION PROFESSOR 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 DIFFERENTIAL AUTO Routine 05/24/2021 12: 51 PM MATHEMATICS EDUCATION PROFESSOR 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 CBC WITH AUTO DIFFERENTIAL Routine 05/24/2021 12:51 PM MATHEMATICS EDUCATION PROFESSOR 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 CHOLESTEROL, LDL, DIRECT Routine 05/24/2021 12:51 PM MATHEMATICS EDUCATION PROFESSOR 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 COMPREHENSIVE METABOLIC PANEL Routine 05/24/2021 12:51 PM MATHEMATICS EDUCATION PROFESSOR 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 documented in this encounter Results * eGFR (05/24/2021 12:51 PM MATHEMATICS EDUCATION PROFESSOR) eGFR 41 mL/min/1.7 3 m2 [facility] Comment: Interpretive Data Reference Interval Normal ?>/= 90 mL/min/1.73m2 Mildly decreased* ? 60 - 89 mL/min/1.73m2 Mildly to moderately decreased ?45 - 59 mL/min/1.73m2 Moderately to severely decreased ??30 - 44 mL/min/1.73m2 Severely decreased ?15 - 29 mL/min/1.73m2 Kidney Failure ?< 15 ??mL/min/1.73m2 *Relative to young adult level Estimated glomerular filtration rate is determined by the CKD-EPI equation recommended by the National Kidney Foundation (KDIGO 2012 Clinical Practice Guideline for the Evaluation and Management of Chronic Kidney Disease. Kidney Intnl Suppl Jun 2012;3:1). The CKD-EPI equation should not be used for patients with unstable renal function and has not been validated in children and those over 70. Current interpretive data was last reviewed 2020 Blood 05/24/2021 12:5 1 PM MATHEMATICS EDUCATION PROFESSOR 05/24/2021 8:39 PM MATHEMATICS EDUCATION PROFESSOR us Pepper Morgan MD LAB BLOOD ORDERABLES Final Result [facility] [id number] Department [place] [address] * Differential, auto (05/24/2021 12:51 PM MATHEMATICS EDUCATION PROFESSOR) Neutrophil abs 5.8 1.7 - 6.5 K/cumm [facility] Imm gran abs 0.1 0.0 - 0.1 K/cumm [facility] Lymphocyte abs 1.3 0.8 - 3.3 K/cumm [facility] Monocyte abs 0.6 0.2 - 0.8 K/cumm [facility] Eosinophil abs 0.4 0.0 - 0.5 K/cumm [facility] Basophil abs 0.1 0.0 - 0.1 K/cumm [facility] Neutrophil pct 70.6 % [facility] Comment: Interpretive Data Percent cell count reference ranges are not reported, since discordance with absolute values may lead to misinterpretation of CBC data. Current Interpretive Data was last revised on 2017. Imm gran pct 0.7 % [facility] Comment: Interpretive Data Percent cell count reference ranges are not reported, since discordance with absolute values may lead to misinterpretation of CBC data. Current Interpretive Data was last revised on 2017. Lymphocyte pct 16.2 % [facility] Comment: Interpretive Data Percent cell count reference ranges are not reported, since discordance with absolute values may lead to misinterpretation of CBC data. Current Interpretive Data was last revised on 2017. Monocyte pct 7.1 % [facility] Comment: Interpretive Data Percent cell count reference ranges are not reported, since discordance with absolute values may lead to misinterpretation of CBC data. Current Interpretive Data was last revised on 2017. Eosinophil pct 4.8 % [facility] Comment: Interpretive Data Percent cell count reference ranges are not reported, since discordance with absolute values may lead to misinterpretation of CBC data. Current Interpretive Data was last revised on 2017. Basophil pct 0.6 % [facility] Comment: Interpretive Data Percent cell count reference ranges are not reported, since discordance with absolute values may lead to misinterpretation of CBC data. Current Interpretive Data was last revised on 2017. Blood 05/24/2021 12:5 1 PM MATHEMATICS EDUCATION PROFESSOR 05/24/2021 6:47 PM MATHEMATICS EDUCATION PROFESSOR Pepper Morgan MD LAB BLOOD ORDERABLES Final Result Performing Organization Address [facility] Co de Phone Number [facility] [address] [place] [address] * Cholesterol, LDL, direct (05/24/2021 12:51 PM MATHEMATICS EDUCATION PROFESSOR) LDL Cholesterol, Direct 107 <=129 mg/dL [facility] Comment: Interpretive Data Ages < or = [...] Interpretive Data was last revised on 2018. Blood 05/24/2021 12:5 1 PM MATHEMATICS EDUCATION PROFESSOR 05/24/2021 6:47 PM MATHEMATICS EDUCATION PROFESSOR Pepper Morgan MD LAB BLOOD ORDERABLES Final Result Performing Organization Address [facility]/ZIP Co de Phone Number [facility] [address] [address] [employer] [address] * (ABNORMAL) Comprehensive metabolic panel (05/24/2021 12:51 PM MATHEMATICS EDUCATION PROFESSOR) Sodium 139 135 - 145 mmol/L [facility] Potassium, pl 5.2(H) 3.3 - 4.9 mmol/L [facility] Chloride 102 97 - 110 mmol/L [facility] CO2 28 22 - 32 mmol/L [facility] Anion gap 9 2 - 15 mmol/L [facility] BUN 15 8 - 25 mg/dL [facility] Creatinine 1.22(H) 0.60 - 1.10 mg/dL [facility] Glucose 97 70 - 199 mg/dL [facility] Comment: [...] 2017. Calcium 9.4 8.5 - 10.3 mg/dL [facility] Bilirubin, total 0.5 0.1 - 1.2 mg/dL [facility] Protein, pl 6.7 6.5 - 8.5 g/dL [facility] Albumin 3.8 3.5 - 5.0 g/dL [facility] Alk phos 118 40 - 130 Units/L [facility] ALT 14 7 - 45 Units/L [facility] AST 23 10 - 45 Units/L [facility] Blood 05/24/2021 12:5 1 PM MATHEMATICS EDUCATION PROFESSOR 05/24/2021 6:47 PM MATHEMATICS EDUCATION PROFESSOR us Pepper Morgan MD LAB BLOOD ORDERABLES Final Result [facility] [id number] Department [place] [address] * (ABNORMAL) CBC with auto differential (05/24/2021 12:51 PM MATHEMATICS EDUCATION PROFESSOR) WBC 8.2 3.8 - 9.9 K/cumm [facility] Hgb 13.8 11.9 - 15.5 g/dL [facility] Hct 45.9(H) 35.6 - 45.5 % [facility] Plt 335 150 - 400 K/cumm [facility] MPV 9.5 9.1 - 12.3 fL [facility] RBC 4.93 3.90 - 5.20 M/cumm [facility] MCV 93.1 81.3 - 96.4 fL [facility] MCH 28.0 27.1 - 33.3 pg [facility] MCHC 30.1(L) 32.3 - 35.7 g/dL [facility] RDW CV 13.5 11.1 - 14.9 % [facility] RDW SD 46.4 35.7 - 48.1 fL [facility] NRBC abs 0.00 0.00 - 0.01 K/cumm [facility] Blood 05/24/2021 12:5 1 PM MATHEMATICS EDUCATION PROFESSOR 05/24/2021 6:47 PM MATHEMATICS EDUCATION PROFESSOR Pepper Morgan MD LAB BLOOD ORDERABLES Final Result [facility] [id number] Department [place] [address] documented in this encounter Visit Diagnoses Diagnosis 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 Essential hypertension, benign documented in this encounter Care Teams Mobile Security Architect Relationship Specialty Start Date End Date Pepper Morgan MD PCP - General 09/16/16 Hank Garibay MD [address] [facility] [address] [address] Surgeon Orthopedic Surgery 03/27/17 Jacky Murry MD [address] [facility] [address] [place] [address] Ophthalmology 03/27/17 Puma Mckenzie MD [address] [facility] [address] [address] [place] [address] Surgeon Orthopedic Surgery 07/11/19 documented as of this encounter
--- OUTSIDE RECORDS SUMMARY | 2024-06-18 18:59 | XMS_ITS | Encounter Summary ---
Author Organization [facility] Medical [facility] Address [address] [facility] [address] [place] [address] Care Team Providers Care Crochet Beader Name Role Phone Pepper Morgan MD Primary Care Provider [phone]- [phone] Hank Garibay MD Unavailable [phone] Jacky Murry MD Unavailable [phone] Puma Mckenzie MD Unavailable [phone] Encounter Details Date Type Department Care Team (Late st Contact Info) Description 06/29/2021 Telephone [facility] [address] [place] [id number] Pepper Morgan MD [address] [place] [address] Social History Tobacco Use Types Packs/Day Years [...] on file Legal Sex Female 4:33 AM MEASURER MACHINE Gender Identity Not on file Sexual Orientation Not on file Occupation Industry Job Start Date Job End Date retired Not on file Not on file Not on file documented as of this encounter Ordered Prescriptions Prescription Sig Dispense Quantity Refills Last Filled Start Date End Date methylPREDNISolone (MEDROL DOSEPACK) 4 mg Dosepack Take as directed on package. 21 tablet 06/29/2021 2 documented in this encounter Miscellaneous Notes * Telephone Encounter - Charity Pinedo LPN - 06/29/2021 12:19 PM MEASURER MACHINE Informed pt [phone] that TLQ did review message and [facility] & that TLQ recommends she take a Medrol Dose Juancho then see HOT DIE PRESS OPERATOR for follow up. Pt did voice understanding and requested Medrol Dose Juancho be sent to [facility] E-Rx was sent. 1st available appointment at this office is07/07/21 @ 930am and pt did take that appointment. Pt was instructed to go to ER if she should start having difficulty breathing with her tongue swelling and pt did voice understanding and she had nofurther questions/concerns at this time. URER MACHINE * Telephone Encounter - Nile Arroyo MD - 06/29/2021 12:09 PM MEASURER MACHINE Trial of medrol dose pk F/u appt URER MACHINE * Telephone Encounter - Charity Pinedo LPN - 06/29/2021 11:53 AM MEASURER MACHINE TLQ - [facility] this [facility] for left ear pain and tongue swelling. Can you please review previous messages and ER report and advise. URER MACHINE * Telephone Encounter - Vickie Araujo - 06/29/2021 11:12 AM CST Patient went to er and they didn't do anything. They looked at her throat from across the room. They told her to take benadryl and she cannot take that. They said there was nothing wrong with her ear. They told her to call her doctor. Cbn: [phone] URER MACHINE * Telephone Encounter - Charity Pinedo LPN - 06/29/2021 8:23 AM MEASURER MACHINE Pt [phone] called stating that she woke up with an earache and her tongue is swollen. Pt states she is not taking any new medications and did not have anything new to eat before going to bed. Pt states she is able to breathe easily and is able to drink fluids. Advised pt to take Benadryl or Zyrtecat this time if she has some. However, pt states she cannot take these medications. Advised pt she needs to go to the ER for evaluation due to her tongue being swollen. Pt states she will not go to ER because she has had horror stories about the ER right now. Therefore, advised pt to go to Urgent Care as we have no available appointments at this office and she does need someone to see her for this issue TOM. Pt did voice understanding and states she will either go to [facility] or [facility] now. URER MACHINE documented in this encounter Plan of Treatment Not on file documented as of this encounter Visit Diagnoses Not on filedocumented in this encounter Care Teams Crochet Beader Relationship Specialty Start Date End Date Pepper Morgan MD PCP - General 09/16/16 Hank Garibay MD [address] [place] [address] [address] [facility] [address] [place] [address] Surgeon Orthopedic Surgery 03/27/17 Jacky Murry MD [address] [place] [address] [address] [facility] [address] [place] [address] Ophthalmology 03/27/17 Puma Mckenzie MD [address] [facility] [address] [place] [address] Surgeon Orthopedic Surgery 07/11/19 documented as of this encounter
--- OUTSIDE RECORDS SUMMARY | 2024-06-18 18:59 | XMS_ITS | Encounter Summary ---
Author Organization [facility] Address [address] [place] [address] Care Team Providers Care Superintendent Radio Communications Name Role Phone Pepper Morgan MD Primary Care Provider + [phone] Hank Garibay MD Unavailable [phone] Jacky Murry MD Unavailable [phone] Puma Mckenzie MD Unavailable [phone] Encounter Details Date Type Department Care Team (Late st Contact Info) Description 08/24/2021 2:20 PM LDR RN Lab [address] Puma Mckenzie MD [address] [place] [address] [address] [place] [address] Susy Hummel PA [address] [place] [address] [address] [place] [address] History of arthroplasty of left knee; Primary osteoarthritis of left hip Discharge Disposition: [...] on file Legal Sex Female 4:33 AM LDR RN Gender Identity Not on file Sexual Orientation [...] Procedure Name Priority Date/Time Associated Diagnosis Comments ERYTHROCYTE SEDIMENTATION RATE Routine 08/24/2021 2:19 PM LDR RN History of arthroplasty of left knee Primary osteoarthritis of left hip CRP (ACUTE PHASE) Routine 08/24/2021 2:1 9 PM LDR RN History of arthroplasty of left knee Primary osteoarthritis of left hip documented in this encounter Results * Erythrocyte sedimentation rate (08/24/2021 2:19 PM LDR RN) Erythrocyte sedimentation rate 18 1 - 30 mm/hr [facility] ([place]) Blood 08/24/2021 2:19 PM LDR RN 08/24/2021 3:23 PM LDR RN Susy BRUCE LAB BLOOD ORDERABLES Final Result Performing Organization Address City/[facility] Co de Phone Number [facility] ([place]) [address] [facility] [place] [address] * CRP (acute phase) (08/24/2021 2:19 PM LDR RN) CRP 9.0 <=10.0 mg/L [facility] ([place]) Blood 08/24/2021 2:19 PM LDR RN 08/24/2021 3:23 PM LDR RN Susy BRUCE LAB BLOOD ORDERABLES Final Result Performing Organization Address City/[facility]/ZIP Co de Phone Number [facility] ([place]) [address] [facility] [place] [address] documented in this encounter Visit Diagnoses Diagnosis History of arthroplasty of left knee Primary osteoarthritis of left hip documented in this encounter Care Teams Superintendent Radio Communications Relationship Specialty Start Date End Date Pepper Morgan MD PCP - General 09/16/16 Hank Garibay MD [address] [facility] [address] [place] [address] Surgeon Orthopedic Surgery 03/27/17 Jacky Murry MD [address] [facility] [address] [place] [address] Ophthalmology 03/27/17 Puma Mckenzie MD [address] [facility] [address] [place] [address] Surgeon Orthopedic Surgery 07/11/19 documented as of this encounter
--- OUTSIDE RECORDS SUMMARY | 2024-06-18 18:59 | XMS_ITS | Encounter Summary ---
Author Organization [facility] Medical [facility] Address [address] [facility] [address] [place] [address] Care Team Providers Care Mems Engineer Name Role Phone Pepper Morgan MD Primary Care Provider +- [phone] Hank Garibay MD Unavailable [phone] Jacky Murry MD Unavailable [phone] Puma Mckenzie MD Unavailable [phone] Encounter Details Date Type Department Care Team (Late st Contact Info) Description 07/01/2021 Telephone [facility] [address] [place] [phone] Pepper Morgan MD [address] [place] [address] Social History Tobacco Use Types Packs/Day Years [...] on file Legal Sex Female 4:33 AM PERSONNEL RESEARCH PSYCHOLOGIST Gender Identity Not on file Sexual Orientation Not on file Occupation Industry Job Start Date Job End Date retired Not on file Not on file Not on file documented as of this encounter Miscellaneous Notes * Telephone Encounter - Katy Lopes RN - 07/05/2021 8:22 AM PERSONNEL RESEARCH PSYCHOLOGIST Called patient and notified her of RX for itching. Patient said she does not have any itching. Patient said she is actually doing fine and denied any other concerns at this time. Patient asked to cancel her f/u appt for Monday since she is doing okay. Appt cancelled. Notified patient to call if any concerns arise. ONNEL RESEARCH PSYCHOLOGIST * Telephone Encounter - Katy Lopes RN - 07/02/2021 4:41 PM PERSONNEL RESEARCH PSYCHOLOGIST Attempted to call patient and no answer. Left message on voice mail. ONNEL RESEARCH PSYCHOLOGIST * Telephone Encounter - Katy Lopes RN - 07/01/2021 11:10 AM PERSONNEL RESEARCH PSYCHOLOGIST Left message for patient to return call. ONNEL RESEARCH PSYCHOLOGIST * Telephone Encounter - Nile Arroyo MD - 07/01/2021 11:03 AM PERSONNEL RESEARCH PSYCHOLOGIST She can take atarax 10 mg po hs for itching and it will help her #15 Offer dermatology appt ONNEL RESEARCH PSYCHOLOGIST * Telephone Encounter - Katy Lopes RN - 07/01/2021 10:33 AM PERSONNEL RESEARCH PSYCHOLOGIST TOTLQ: Called patient and she said she had to stop the steroids. Patient said she took one day of the Medrol Dose pack at different times of the day as directed. She could not sleep and had to walk the floors and had an increase in her tremors so she stopped the medicine. She denied any tongue swelling, difficulty swallowing, or sob. Notified her if any symptoms develop as above to go to ER. She has a f/u on 07/07/21. Please advise if any other options. ONNEL RESEARCH PSYCHOLOGIST * Telephone Encounter - Katy Lopes RN - 07/01/2021 10:30 AM PERSONNEL RESEARCH PSYCHOLOGIST Left message to return call. ONNEL RESEARCH PSYCHOLOGIST * Telephone Encounter - Eri Owens - 07/01/2021 9:59 AM CST Please see previous message from 06/29/21. Pt states she stop taking the Steroid and she is not going to take anymore. Pt states she had to walk the floors because she could not sleep and was having tremors. [facility]#[id number] patient ONNEL RESEARCH PSYCHOLOGIST documented in this encounter Plan of Treatment Not on file documented as of this encounter Visit Diagnoses Not on filedocumented in this encounter Care Teams Mems Engineer Relationship Specialty Start Date End Date Pepper Morgan MD PCP - General 09/16/16 Hank Garibay MD [address] [facility] [address] WARN[address] [place] [address] Surgeon Orthopedic Surgery 03/27/17 Jacky Murry MD [address] [facility] [address] WARN[address] [place] [address] [place] [address] Ophthalmology 03/27/17 Puma Mckenzie MD [address] [facility] [address] WARNER Sher[address] [facility] [address] [place] [address] Surgeon Orthopedic Surgery 07/11/19 documented as of this encounter
--- OUTSIDE RECORDS SUMMARY | 2024-06-18 18:59 | XMS_ITS | Encounter Summary ---
Author Organization [facility] Medical Group Address [address] [facility] [address] [place] [address] Care Team Providers Care Advertising Supervisor Name Role Phone Pepper Morgan MD Primary Care Provider +- [phone] Hank Garibay MD Unavailable [phone] Jacky Murry MD Unavailable [phone] Puma Mckenzie MD Unavailable [phone] Encounter Details Date Type Department Care Team (Late st Contact Info) Description 06/09/2021 Telephone [facility] [address] [place] [phone] Pepper Morgan MD [address] [place] [address] Social History Tobacco Use Types Packs/Day Years [...] on file Legal Sex Female 4:33 AM HASSOCK MAKER Gender Identity Not on file Sexual Orientation Not on file Occupation Industry Job Start Date Job End Date retired Not on file Not on file Not on file documented as of this encounter Miscellaneous Notes * Telephone Encounter - Letty Hernandez LPN - 06/10/2021 11:12 AM HASSOCK MAKER Chart updated OCK MAKER * Telephone Encounter - Eri Owens - 06/09/2021 4:25 PM CST FYI Covid-19 Pfizer rt arm 08/09/20 Lot#[id number] Pfizer rt amr 09/06/20 Lot#[id number] Covid-19 booster 03/14/21 Lot#[id number] Flu shot 03/2021 Shingles shot 02/23/21,12/02/20 OCK MAKER documented in this encounter Plan of Treatment Not on file documented as of this encounter Visit Diagnoses Not on filedocumented in this encounter Care Teams Advertising Supervisor Relationship Specialty Start Date End Date Pepper Morgan MD PCP - General 09/16/16 Hank Garibay MD [address] [facility] [address] [place] [address] Surgeon Orthopedic Surgery 03/27/17 Jacky Murry MD [address] [facility] [address] [place] [address] Ophthalmology 03/27/17 Puma Mckenzie MD [address] [facility] [address] [place] [address] Surgeon Orthopedic Surgery 07/11/19 documented as of this encounter
--- OUTSIDE RECORDS SUMMARY | 2024-06-18 18:59 | XMS_ITS | Encounter Summary ---
Author Organization [facility] Medical Group Address [address] [facility] [address] [place] [address] Care Team Providers Care Stacker Driver Name Role Phone Pepper Morgan MD Primary Care Provider + [phone] Hank Garibay MD Unavailable [phone] Jacky Murry MD Unavailable [phone] Puma Mckenzie MD Unavailable [phone] Encounter Details Date Type Department Care Team (Late st Contact Info) Description 05/11/2021 Telephone [facility] [address] [place] [phone] Jacqueline Fuller, IMAGING TECHNOLOGIST [address] [place] [address] Social History Tobacco Use Types Packs/Day Years [...] file Legal Sex Female 4:33 AM LIVESTOCK FEEDER Gender Identity Not on file Sexual Orientation Not on file Occupation Industry Job Start Date Job End Date retired Not on file Not on file Not on file documented as of this encounter Miscellaneous Notes * Telephone Encounter - Ondina Abel RN - 05/12/2021 10:36 AM LIVESTOCK FEEDER Pt aware of ANV's detailed message. She verbalized understanding. STOCK FEEDER * Telephone Encounter - Ondina Abel RN - 05/11/2021 2:12 PM LIVESTOCK FEEDER LM for pt to return call. STOCK FEEDER * Telephone Encounter - Jacqueline Fuller NP - 05/11/2021 12:56 PM LIVESTOCK FEEDER Please let her know that her echo shows that her Ejection fraction is normal, some mild valvular abnormalities, but no other acute findings. STOCK FEEDER documented in this encounter Plan of Treatment Not on file documented as of this encounter Visit Diagnoses Not on filedocumented in this encounter Care Teams Stacker Driver Relationship Specialty Start Date End Date Pepper Morgan MD PCP - General 09/16/16 Hank Garibay MD [address] [place] [address] DR WARNER Sheridan [facility] [address] [place] [address] Surgeon Orthopedic Surgery 03/27/17 Jacky Murry MD [address] [place] [address] DR WARNER [place]idan [facility] [address] [place] [address] Ophthalmology 03/27/17 Puma Mckenzie MD [address] [place] [address] DR WARNER Sheridan [facility] [address] [place] [address] Surgeon Orthopedic Surgery 07/11/19 documented as of this encounter
--- OUTSIDE RECORDS SUMMARY | 2024-06-18 18:59 | XMS_ITS | Encounter Summary ---
Author Organization [facility] Medical Group Address [address] [address] Care Team Providers Care Trimmer Meat Name Role Phone Pepper Morgan MD Primary Care Provider + [phone] Hank Garibay MD Unavailable [phone] Jacky Murry MD Unavailable [phone] Puma Mckenzie MD Unavailable [phone] Encounter Details Date Type Department Care Team (Late st Contact Info) Description 06/16/2021 10:40 AM DOG OBEDIENCE INSTRUCTOR Lab [facility] [address] [place] [phone] Hyperpotassemia; Essential hypertension, malignant; Shortness of breath; Atrial fibrillation, unspecified type (HCC) Social History Tobacco Use Types Packs/Day [...] on file Legal Sex Female 4:33 AM DOG OBEDIENCE INSTRUCTOR Gender Identity Not on file Sexual Orientation Not on file Occupation Industry Job Start Date Job End Date retired Not on file Not on file Not on file documented as of this encounter Plan of Treatment Not on file documented as of this encounter Visit Diagnoses Diagnosis Hyperpotassemia Essential hypertension, malignant Shortness of breath Atrial fibrillation, unspecified type (HCC) documented in this encounter Care Teams Trimmer Meat Relationship Specialty Start Date End Date Pepper Morgan MD PCP - General 09/16/16 Hank Garibay MD [address] [facility] [address] WARN[address] [place] [address] Surgeon Orthopedic Surgery 03/27/17 Jacky Murry MD [address] [facility] [address] [place] [address] Ophthalmology 03/27/17 Puma Mckenzie MD [address] [facility] [address] [place] [address] Surgeon Orthopedic Surgery 07/11/19 documented as of this encounter
--- OUTSIDE RECORDS SUMMARY | 2024-06-18 18:59 | XMS_ITS | Encounter Summary ---
Author Organization [facility] Medical Group Address [address] [facility] [address] [place] [address] Care Team Providers Care Manager Technology Name Role Phone Pepper Morgan MD Primary Care Provider + [phone] Hank Garibay MD Unavailable [phone] Jacky Murry MD Unavailable [phone] Puma Mckenzie MD Unavailable [phone] Encounter Details Date Type Department Care Team (Late st Contact Info) Description 05/24/2021 1:00 PM JOB HONER Lab [facility] [address] [place] [phone] Social History Tobacco Use Types Packs/Day Years [...] on file Legal Sex Female 4:33 AM JOB HONER Gender Identity Not on file Sexual Orientation Not on file Occupation Industry Job Start Date Job End Date retired Not on file Not on file Not on file documented as of this encounter Plan of Treatment Not on file documented as of this encounter Visit Diagnoses Not on filedocumented in this encounter Care Teams Manager Technology Relationship Specialty Start Date End Date Pepper Morgan MD PCP - General 09/16/16 Hank Garibay MD [address] [facility] [address] [place] [address] Surgeon Orthopedic Surgery 03/27/17 Jacky Murry MD [address] [facility] [address] [place] [address] Ophthalmology 03/27/17 Puma Mckenzie MD [address] [facility] [address] [place] [address] Surgeon Orthopedic Surgery 07/11/19 documented as of this encounter
--- OUTSIDE RECORDS SUMMARY | 2024-06-18 18:59 | XMS_ITS | Encounter Summary ---
Author Organization [facility] Medical Group Address [address] [facility] [address] [place] [address] Care Team Providers Care Applied Researcher Name Role Phone Pepper Morgan MD Primary Care Provider Hank Garibay MD Unavailable [phone] Jacky Murry MD Unavailable [phone] Puma Mckenzie MD Unavailable [phone] Encounter Details Date Type Department Care Team (Late st Contact Info) Description 06/02/2021 Telephone [facility] [address] [place] [address] Yvette Zapata, RN Social History Tobacco Use [...] on file Legal Sex Female 4:33 AM CASING TRIMMER Gender Identity Not on file Sexual Orientation Not on file Occupation Industry Job Start Date Job End Date retired Not on file Not on file Not on file documented as of this encounter Ordered Prescriptions Prescription Sig Dispense Quantity Refills Last Filled Start Date End Date furosemide (LASIX) 40 mg tablet Take 1 tablet (40 mg total) by mouth daily 90 tablet 06/03/2021 2 furosemide (LASIX) 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: Shortness of breath,Atrial fibrillation, unspecified type (HCC) Take 2 tablets (40 mg total) by mouth daily 60 tablet 11 06/02/2021 1 spironolactone (Aldactone) 25 mg tabletIndications: 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 Take 1/2 tablet daily 30 tablet 06/02/2021 2 documented in this encounter Miscellaneous Notes * Addendum Note - Charity Rothman LPN - 06/03/2021 9:19 AM CSTAddended by: CHARITY ROTHMAN on: 06/03/2021 09:19 AM Modules accepted: Orders NG TRIMMER * Telephone Encounter - Charity Rothman LPN - 06/03/2021 9:05 AM CASING TRIMMER Pt [phone] did r/c & states she was not feeling well at all when she spoke to nurse yesterday and was asking what the message from [facility] was again. Pt states that her N/V has improved at this time. Informed pt that [facility] orders were to increase Furosemide from 20mg/day up to 40mg/day. Informed pt she is to use her Furosemide 20mg tablets taking 2 tablets (40mg total) once daily and take before 6pm. Informed pt that we will send Rx to [facility] for Furosemide 40mg tablets that she can contact Kyle to peanut picker when she runs out of the 20mg tablets. Informed pt also that she is to decrease Spironolactone (Aldactone) from 25mg take 1 whole tablet daily down to 25mg take 1/2 tabletdaily. Pt voiced understanding to both. However, pt concerned because the Spironolactone 25mg tablet is so small she thinks the tablet may crumble when trying to cut in 1/2. Advised pt if the tablet crumbles a little bit, she can always put the 1/2 tablet and/or crumbles in a bite of applesauce to get the full amount. Pt did voice understanding. Informed pt that she does also need to repeat BNP & BMP in 2 weeks. Pt voiced understanding and did schedule here at [facility] on 06/16/21 @ 1040am & orders were completed. NG TRIMMER * Telephone Encounter - Luis E Washington RN - 06/02/2021 10:56 AM CASING TRIMMER Spoke to pt et informed of below KMS result message Pt voices understand et states will call back to schedule lab appt in 2 wks Lab orders for BNP in 2wks entered Med list updated Pt states she has had N/V since 2:00 am States her daughter and grandson had the same c/o recently that lasted only 24hrs Instructed pt to go to ER for eval Pt declines Instructed to go to ER if above c/o worsen or don't improve Pt voices understand et has no further questions/concerns @ this time NG TRIMMER * Telephone Encounter - Yvette Zapata RN - 06/02/2021 8:19 AM CST ----- Message from Pepper Morgan MD sent at 06/01/2021 8:47 PM CASING TRIMMER ----- Inform her the blood test indicates she [...] = acute on chronic diastolic heart failure NG TRIMMER documented in this encounter Plan of Treatment Not on file documented as of this encounter Results * (ABNORMAL) Pro B-type natriuretic peptide (08/16/2021 9:07 AM CASING TRIMMER) NT-proBNP 2,345(H) <=450 pg/mL CHIDI VAUGHAN Comment: Interpretive Comments: [...] Interpretive Data Last Revised Date: 2018. Blood 08/16/2021 9:07 AM CASING TRIMMER 08/16/2021 2:34 PM CASING TRIMMER Pepper Morgan MD LAB BLOOD ORDERABLES Final Result [facility] [address] Department [place] [address] * (ABNORMAL) Basic metabolic panel (08/16/2021 9:07 AM CASING TRIMMER) Sodium 141 135 - 145 mmol/L [facility] CH Potassium, pl 5.5(H) 3.3 - 4.9 mmol/L [facility] Chloride 103 97 - 110 mmol/L [facility] CO2 29 22 - 32 mmol/L [facility] Anion gap 9 2 - 15 mmol/L [facility] BUN 16 8 - 25 mg/dL [facility] Creatinine 0.99 0.60 - 1.10 mg/dL [facility] Glucose 90 70 - 199 mg/dL [facility] Comment: Interpretive Data Fasting glucose >/= 126 [...] Calcium 9.3 8.5 - 10.3 mg/dL [facility] Blood 08/16/2021 9:07 AM CASING TRIMMER 08/16/2021 2:34 PM CASING TRIMMER Pepper Morgan MD LAB BLOOD ORDERABLES Final Result [facility] [address] Department [place] [address] documented in this encounter Visit Diagnoses Diagnosis Hyperkalemia- Primary Hyperpotassemia 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 Essential hypertension, benign Shortness of breath Atrial fibrillation, unspecified type (HCC) documented in this encounter Discontinued Medications Medication Sig Discontinue Reason Start Date End Da te furosemide (LASIX) 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:Shortne ss of breath,Atrial fibrillation, unspecified type (HCC) Take 1 tablet (20 mg total) by mouth daily Reorder 04/21/2021 06/02/2021 spironolactone (Aldactone) 25 mg tabletIndications: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 Take 1 tablet (25 mg total) by mouth daily Reorder 05/31/2021 06/02/2021 furosemide (LASIX) 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:Shortne ss of breath,Atrial fibrillation, unspecified type (HCC) Take 2 tablets (40 mg total) by mouth daily Dose adjustment 06/02/2021 06/03/2021 documented as of this encounter Care Teams Applied Researcher Relationship Specialty Start Date End Date Pepper Morgan MD PCP - General 09/16/16 Hank Garibay MD 4 [facility] [address] [place] [address] Surgeon Orthopedic Surgery 03/27/17 Jacky Murry MD [address] [facility] [address] [place] [address] Ophthalmology 03/27/17 Puma Mckenzie MD [address] [facility] [address] [place] [address] Surgeon Orthopedic Surgery 07/11/19 documented as of this encounter
--- OUTSIDE RECORDS SUMMARY | 2024-06-18 18:59 | XMS_ITS | Encounter Summary ---
Author Organization [facility] Medical Group Address [address] [address] Care Team Providers Care Gerentological Physiotherapist Name Role Phone Pepper Morgan MD Primary Care Provider + [phone] Hank Garibay MD Unavailable [phone] Jacky Murry MD Unavailable [phone] Puma Mckenzie MD Unavailable [phone] Encounter Details Date Type Department Care Team (Late st Contact Info) Description 08/16/2021 9:10 AM BELLY DUMP DRIVER Lab [facility] [address] [place] [phone] 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 Social History Tobacco Use Types [...] on file Legal Sex Female 4:33 AM BELLY DUMP DRIVER Gender Identity Not on file Sexual Orientation Not on file Occupation Industry Job Start Date Job End Date retired Not on file Not on file Not on file documented as of this encounter Plan of Treatment Not on file documented as of this encounter Visit Diagnoses Diagnosis 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 Essential hypertension, benign documented in this encounter Care Teams Gerentological Physiotherapist Relationship Specialty Start Date End Date Pepper Morgan MD PCP - General 09/16/16 Hank Garibay MD [address] [facility] [address] [place] [address] Surgeon Orthopedic Surgery 03/27/17 Jacky Murry MD [address] [facility] [address] [place] [address] Ophthalmology 03/27/17 Puma Mckenzie MD [address] [facility] [address] [place] [address] Surgeon Orthopedic Surgery 07/11/19 documented as of this encounter
--- OUTSIDE RECORDS SUMMARY | 2024-06-18 18:59 | XMS_ITS | Encounter Summary ---
Author Organization [facility] Medical Group Address [address] [facility] [address] [place] [address] Care Team Providers Care Car Lubricator Name Role Phone Pepper Morgan MD Primary Care Provider +- [phone] Hank Garibay MD Unavailable [phone] Jacky Murry MD Unavailable [phone] Puma Mckenzie MD Unavailable [phone] Encounter Details Date Type Department Care Team (Late st Contact Info) Description 09/02/2021 Telephone [facility] [address] [place] [phone] Pepper Morgan MD [address] [place] [address] Social History Tobacco Use Types Packs/Day Years [...] on file Legal Sex Female 4:33 AM FEDERAL AGENT Gender Identity Not on file Sexual Orientation Not on file Occupation Industry Job Start Date Job End Date retired Not on file Not on file Not on file documented as of this encounter Miscellaneous Notes * Telephone Encounter - Anton Carver MA - 09/02/2021 9:42 AM CDT Please do C4 and C1-INH protein esterase and function for recurrent facial swelling. Malena called from downstairs lab to let us know they cannot collect labs here due to lack of supplies needed. Patient coming back up, she can get labs collected at [facility]. Will speak with patient to see where she would like to go. documented in this encounter Plan of Treatment Not on file documented as of this encounter Visit Diagnoses Not on filedocumented in this encounter Care Teams Car Lubricator Relationship Specialty Start Date End Date Pepper Morgan MD PCP - General 09/16/16 Hank Garibay MD [address] [facility] [address] [place] [address] Surgeon Orthopedic Surgery 03/27/17 Jacky Murry MD [address] [facility] [address] WARN[address] [place] [address] Ophthalmology 03/27/17 Puma Mckenzie MD [address] [facility] [address] [place] [address] Surgeon Orthopedic Surgery 07/11/19 documented as of this encounter
--- OUTSIDE RECORDS SUMMARY | 2024-06-18 18:59 | XMS_ITS | Encounter Summary ---
Author Organization [facility] Medical Group Address [address] [facility] [address] [place] [address] Care Team Providers Care Plant Security Guard Name Role Phone Pepper Morgan MD Primary Care Provider + [phone] Hank Garibay MD Unavailable [phone] Jacky Murry MD Unavailable [phone] Puma Mckenzie MD Unavailable [phone] Encounter Details Date Type Department Care Team (Late st Contact Info) Description 08/24/2021 Telephone [facility] Medical [facility] Orthopedics and Sports Medicine [address] [facility] [address], [place] [address] Tasha Cowan MA Social History [...] on file Legal Sex Female 4:33 AM CONTENT ENGINEER Gender Identity Not on file Sexual Orientation Not on file Occupation Industry Job Start Date Job End Date retired Not on file Not on file Not on file documented as of this encounter Miscellaneous Notes * Telephone Encounter - Susy Hummel PA - 08/25/2021 8:08 AM CONTENT ENGINEER Noted. ENT ENGINEER * Telephone Encounter - Tasha Cowan MA - 08/24/2021 2:10 PM CST Per PCP avoid Scopolamine patch and anti cholinergic meds DOS 09/15/21 LTHA ENT ENGINEER documented in this encounter Plan of Treatment Not on file documented as of this encounter Visit Diagnoses Not on filedocumented in this encounter Care Teams Plant Security Guard Relationship Specialty Start Date End Date Pepper Morgan MD PCP - General 09/16/16 Hank Garibay MD [address] [facility] [address] WARNER Sher[place] [facility] [address] [place] [address] Surgeon Orthopedic Surgery 03/27/17 Jacky Murry MD [address] [facility] [address] WARNER [place] [facility] [address] [place] [address] Ophthalmology 03/27/17 Puma Mckenzie MD [address] [facility] [address] WARNER [address] [facility] [address] [place] [address] Surgeon Orthopedic Surgery 07/11/19 documented as of this encounter
--- OUTSIDE RECORDS SUMMARY | 2024-06-18 18:59 | XMS_ITS | Encounter Summary ---
Author Organization [facility] Healthcare Address [address] [place] [address] Care Team Providers Care Marking Devices Assembler Name Role Phone Pepper Morgan MD Primary Care Provider + [phone] Hank Garibay MD Unavailable [phone] Jacky Murry MD Unavailable [phone] Puma Mckenzie MD Unavailable [phone] Encounter Details Date Type Department Care Team (Late st Contact Info) Description 08/19/2021 9:15 AM DIVISION CONTROLLER Lab [address] [address] Puma Mckenzie MD [address] [place] [address] Pre-operative exam Discharge Disposition: Discharge to home [...] on file Legal Sex Female 4:33 AM DIVISION CONTROLLER Gender Identity Not on file Sexual Orientation [...] Priority Date/Time Associated Diagnosis Comments EGFR Routine 08/19/2021 9:19 AM DIVISION CONTROLLER Pre-operative exam DIFFERENTIAL AUTO Routine 08/19/2021 9:1 9 AM DIVISION CONTROLLER Pre-operative exam URINALYSIS AND REFLEX TO MICROSCOPIC AND CULTURE Routine 08/19/2021 9:19 AM DIVISION CONTROLLER Pre-operative exam CBC WITH AUTO DIFFERENTIAL Routine 08/19/2021 9:19 AM DIVISION CONTROLLER Pre-operative exam HEMOGLOBIN A1C Routine 08/19/2021 9:19 AM DIVISION CONTROLLER Pre-operative exam COMPREHENSIVE METABOLIC PANEL Routine 08/19/2021 9:19 AM DIVISION CONTROLLER Pre-operative exam documented in this encounter Results * eGFR (08/19/2021 9:19 AM DIVISION CONTROLLER) [facility] Signature eGFR 88 mL/min/1. 73 m2 [facility] [...] glomerular filtration rate is determined by the 2021 CKD-EPI equation recommended by the National Kidney [...] interpretive data was last reviewed 2021. Blood 08/19/2021 9:19 AM DIVISION CONTROLLER 08/19/2021 9:38 AM DIVISION CONTROLLER us Puma Mckenzie MD LAB BLOOD ORDERABLES Fin al Result [facility] ([place]) [address] Department [place] [address] * Differential, auto (08/19/2021 9:19 AM DIVISION CONTROLLER) Neutrophil abs 4.5 1.7 - 6.5 K/cumm [facility] ([place]) Imm gran abs 0.0 0.0 - 0.1 K/cumm [facility] ([place]) Lymphocyte abs 0.9 0.8 - 3.3 K/cumm [facility] ([place]) Monocyte abs 0.6 0.2 - 0.8 K/cumm [facility] ([place]) Eosinophil abs 0.3 0.0 - 0.5 K/cumm [facility] ([place]) Basophil abs 0.0 0.0 - 0.1 K/cumm [facility] ([place]) Neutrophil pct 71.0 % [facility] ([place]) Comment: Interpretive [...] was last revised on 2017. Lymphocyte pct 14.7 % [facility] ([place]) Comment: Interpretive [...] Data was last revised on 2017. Blood 08/19/2021 9:19 AM DIVISION CONTROLLER 08/19/2021 9:38 AM DIVISION CONTROLLER Puma Mckenzie MD LAB BLOOD ORDERABLES Fin al Result [facility] ([place]) [address] [place] [address] * Urinalysis reflex to microscopic and culture Urine (08/19/2021 9:19 AM DIVISION CONTROLLER) Color, ur Straw Yellow [facility] ([place]) Clarity, ur Clear Clear [facility] ([place]) Specific gravity, ur 1.004 1.003 - 1.030 [facility] ([place]) pH, urine 6.5 [facility] ([place]) Protein, ur ql Negative Negative [facility] ([place]) Glucose, ur ql Negative Negative [facility] ([place]) Ketones, ur Negative Negative [facility] ([place]) Bilirubin, ur Negative Negative [facility] ([place]) Blood, ur Negative Negative [facility] ([place]) Urobilinogen, ur <2.0 <2.0 mg/dL [facility] ([place]) Nitrite, ur Negative Negative [facility] ([place]) Leukocyte esterase, ur Negative Negative [facility] ([place]) UA reflex comment Reflex conditions for microscopic UA and culture not met. [facility] ([place]) Urine 08/19/2021 9:19 AM DIVISION CONTROLLER 08/19/2021 9:39 AM DIVISION CONTROLLER Narrative [facility] ([place]) - 08/19/2021 9:42 AM DIVISION CONTROLLER ?? Urine pH is affected by diet, medications, systemic acid-base disturbances, and renal tubular function. ??pH may affect urinary stone formation. ??For example, urine pH below 6.0 may help reduce the tendency for calcium phosphate stones and pH greater than 6.0 may reduce the tendency for uric acid stone formation. Source: [facility] [employer]. Last revised 06-29-2017 us Puma Mckenzie MD LAB MICROBIOLOGY - GENER AL ORDERABLES Final Result [facility] ([place]) [address] Department [place] [address] * Comprehensive metabolic panel (08/19/2021 9:19 AM DIVISION CONTROLLER) Sodium 136 135 - 145 mmol/L [facility] ([place]) Potassium, pl 3.7 3.3 - 4.9 mmol/L [facility] ([place]) Chloride 100 97 - 110 mmol/L [facility] ([place]) CO2 25 22 - 32 mmol/L [facility] ([place]) Anion gap 10 2 - 15 mmol/L [facility] ([place]) BUN 11 8 - 25 mg/dL [facility] ([place]) Creatinine 0.63 0.60 - 1.10 mg/dL [facility] ([place]) Glucose 111 70 - 199 mg/dL [facility] ([place]) Comment: Interpretive Data Fasting [...] 5.0 g/dL [facility] ([place]) Alk phos 129 40 - 130 Units/L [facility] ([place]) ALT 11 7 - 45 Units/L [facility] ([place]) AST 14 10 - 45 Units/L [facility] ([place]) Blood 08/19/2021 9:19 AM DIVISION CONTROLLER 08/19/2021 9:38 AM DIVISION CONTROLLER Puma Mckenzie MD LAB BLOOD ORDERABLES Fin al Result Performing Organization Address [facility] Co de Phone Number [facility] ([place]) [address] [place] [address] [place] [address] * Hemoglobin A1c (08/19/2021 9:19 AM DIVISION CONTROLLER) Hgb A1C 5.6 4.0 - 5.6 % [facility] ([place]) Estimated Average Glucose 114 mg/dL [facility] ([place]) Comment: The ADA recommends reporting an estimated Average Glucose (eAG) with all Hemoglobin A1c results using the equation derived from a study of 507 normal and diabetic adults. ??Minority populations were underrepresented and children were not included. ?? (Diabetes Care 31:3226-0364, 2008). ??The eAG is not equivalent to a fasting glucose. Blood 08/19/2021 9:19 AM DIVISION CONTROLLER 08/19/2021 9:38 AM DIVISION CONTROLLER Puma Mckenzie MD LAB BLOOD ORDERABLES Fin al Result Performing Organization Address [facility]/ZIP Co de Phone Number [facility] ([place]) [address] [facility] [place] [address] * (ABNORMAL) CBC with auto differential (08/19/2021 9:19 AM DIVISION CONTROLLER) WBC 6.4 3.8 - 9.9 K/cumm [facility] ([place]) Hgb 13.4 11.9 - 15.5 g/dL [facility] ([place]) Hct 41.9 35.6 - 45.5 % [facility] ([place]) Plt 277 150 - 400 K/cumm [facility] ([place]) MPV 9.3 9.1 - 12.3 fL [facility] ([place]) RBC 4.90 3.90 - 5.20 M/cumm [facility] ([place]) MCV 85.5 81.3 - 96.4 fL [facility] ([place]) MCH 27.3 27.1 - 33.3 pg [facility] ([place]) MCHC 32.0(L) 32.3 - 35.7 g/dL [facility] ([place]) RDW CV 13.7 11.1 - 14.9 % [facility] ([place]) RDW SD 42.5 35.7 - 48.1 fL [facility] ([place]) NRBC abs 0.00 0.00 - 0.01 K/cumm [facility] ([place]) Blood 08/19/2021 9:19 AM DIVISION CONTROLLER 08/19/2021 9:38 AM DIVISION CONTROLLER us Puma Mckenzie MD LAB BLOOD ORDERABLES Fin al Result [facility] ([place]) [address] [place] [address] documented in this encounter Visit Diagnoses Diagnosis Pre-operative exam Unspecified pre-operative examination documented in this encounter Care Teams Marking Devices Assembler Relationship Specialty Start Date End Date Pepper Morgan MD PCP - General 09/16/16 Hank Garibay MD [address] [place] [address] [address] [place] [address] Surgeon Orthopedic Surgery 03/27/17 Jacky Murry MD [address] [facility] [address] WARNER Sher[address] [place] [address] Ophthalmology 03/27/17 Puma Mckenzie MD 4 [facility] [address] WARNER Sher[address] [place] [address] Surgeon Orthopedic Surgery 07/11/19 documented as of this encounter
--- OUTSIDE RECORDS SUMMARY | 2024-06-18 18:59 | XMS_ITS | Encounter Summary ---
Author Organization [facility] Medical Group Address [address] [facility] [address] [place] [address] Care Team Providers Care Front Office Representative Name Role Phone Pepper Morgan MD Primary Care Provider Hank Garibay MD Unavailable [phone] Jacky Murry MD Unavailable [phone] Puma Mckenzie MD Unavailable [phone] Encounter Details Date Type Department Care Team (Late st Contact Info) Description 09/07/2021 Telephone [facility] [address] [place] [id number] Jacqueline Fuller, ALUM PLANT SUPERVISOR [address] [place] [address] Social History Tobacco Use Types Packs/Day Years [...] on file Legal Sex Female 4:33 AM JOINT CLEANING MACHINE OPERATOR Gender Identity Not on file Sexual Orientation Not on file Occupation Industry Job Start Date Job End Date retired Not on file Not on file Not on file documented as of this encounter Miscellaneous Notes * Telephone Encounter - Jacqueline Fuller NP - 09/07/2021 9:08 AM CDT Noted thank you * Telephone Encounter - Yvette Zapata RN - 09/07/2021 8:59 AM CDT Pt aware of normal labs et message et voices understanding. States the swelling is down today, she is back to normal . Aware that she may need to re-visit the hat maker if this comes back-she willcall back if needed. 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 How is she doing is her face still swelling. If so we should refer back to hat maker. documented in this encounter Plan of Treatment Not on file documented as of this encounter Visit Diagnoses Not on filedocumented in this encounter Care Teams Front Office Representative Relationship Specialty Start Date End Date Pepper Morgan MD PCP - General 09/16/16 Hank Garibay MD [address] [place] [address] [address] WARNER Sheridan [address] [address] Surgeon Orthopedic Surgery 03/27/17 Jacky Murry MD [address] [place] [address] DR WARNER Sher[address] [place] [address] Ophthalmology 03/27/17 Puma Mckenzie MD [address] [facility] [address] WARNER Sheridan [address] [place] [address] Surgeon Orthopedic Surgery 07/11/19 documented as of this encounter
--- OUTSIDE RECORDS SUMMARY | 2024-06-18 18:59 | XMS_ITS | Encounter Summary ---
Author Organization [facility] Address [address] [place] [address] Care Team Providers Care Spray Drier Name Role Phone Pepper Morgan MD Primary Care Provider + [phone] Hank Garibay MD Unavailable [phone] Jacky Murry MD Unavailable [phone] Puma Mckenzie MD Unavailable [phone] Reason for Visit * Reason Comments Surgery Date Encounter Details Date Type Department Care Team (Late st Contact Info) Description 09/15/2021 Telephone [facility] Operating Room [address] [place] [address] Puma Mckenzie MD [address] [place] [address] [address] Surgery Date Social History Tobacco Use Types Packs/Day Years [...] on file Legal Sex Female 4:33 AM BOBBIN WINDER Gender Identity Not on file Sexual Orientation Not on file Occupation Industry Job Start Date Job End Date retired Not on file Not on file Not on file documented as of this encounter Miscellaneous Notes * Telephone Encounter - Susy Hummel PA - 09/16/2021 12:28 PM CDT Noted. * Telephone Encounter - Tasha Cowan MA - 09/16/2021 8:31 AM CDT Updated in book * Telephone Encounter - Ivy Finnegan MA - 09/15/2021 3:53 PM CDT Pt called and left a message. She wanted to r/s her surgery date from today. Surgery rescheduled for 09/27. But pt was infomred that I would need to check with Dr. Morgan to see if she would want to see the pt prior to proceeding. Per Dr. Mckenzie he is fine either way and would like to leave that up to the discretion of Dr. Morgan. documented in this encounter Plan of Treatment Not on file documented as of this encounter Visit Diagnoses Not on filedocumented in this encounter Care Teams Spray Drier Relationship Specialty Start Date End Date Pepper Morgan MD PCP - General 09/16/16 Hank Garibay MD [address] [place] [address] DR [address] [address] Surgeon Orthopedic Surgery 03/27/17 Jacky Murry MD [address] [facility] [address] WARNER Sheridan [address] [place] [address] Ophthalmology 03/27/17 Puma Mckenzie MD [address] [facility] [address] WARNER Sheridan [address] [place] [address] Surgeon Orthopedic Surgery 07/11/19 documented as of this encounter
--- OUTSIDE RECORDS SUMMARY | 2024-06-18 18:59 | XMS_ITS | Encounter Summary ---
Author Organization [facility] Healthcare Address [address] [place] [address] Care Team Providers Care Wet Mix Operator Name Role Phone Pepper Morgan MD Primary Care Provider + [phone] Hank Garibay MD Unavailable [phone] Jacky Murry MD Unavailable [phone] Puma Mckenzie MD Unavailable [phone] Encounter Details Date Type Department Care Team (Late st Contact Info) Description 08/16/2021 2:25 PM PVC LOADER Lab [address] [address] Atrial fibrillation, unspecified type (HCC); Medication monitoring encounter; 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; Shortness of breath; Hyperkalemia Social History Tobacco Use Types Packs/Day Years [...] on file Legal Sex Female 4:33 AM PVC LOADER Gender Identity Not on file Sexual Orientation Not on file Occupation Industry Job Start Date Job End Date retired Not on file Not on file Not on file documented as of this encounter Plan of Treatment Not on file documented as of this encounter Procedures Procedure Name Priority Date/Time Associated Diagnosis Comments EGFR Routine 08/16/2021 9:07 AM PVC LOADER 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 Shortness of breath Atrial fibrillation, unspecified type (HCC) Hyperkalemia DIFFERENTIAL AUTO Routine 08/16/2021 9:0 7 AM PVC LOADER Atrial fibrillation, unspecified type (HCC) Medication monitoring encounter PRO B-TYPE NATRIURETIC PEPTIDE Routine 08/16/2021 9:07 AM PVC LOADER 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 Shortness of breath Atrial fibrillation, unspecified type (HCC) CBC WITH AUTO DIFFERENTIAL Routine 08/16/2021 9:07 AM PVC LOADER Atrial fibrillation, unspecified type (HCC) Medication monitoring encounter BASIC METABOLIC PANEL Routine 08/16/2021 9:07 AM PVC LOADER 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 Shortness of breath Atrial fibrillation, unspecified type (HCC) Hyperkalemia documented in this encounter Results * eGFR (08/16/2021 9:07 AM PVC LOADER) [facility] eGFR 57 mL/min/1. 73 m2 [facility] Comment: Interpretive [...] interpretive data was last reviewed 2021. Blood 08/16/2021 9:07 AM PVC LOADER 08/16/2021 2:53 PM PVC LOADER us Pepper Morgan MD LAB BLOOD ORDERABLES Final Result [facility] [address] Department of Laboratories [place], [place] [id number] * Differential, auto (08/16/2021 9:07 AM PVC LOADER) Neutrophil abs 4.6 1.7 - 6.5 K/cumm [facility] Imm gran abs 0.0 0.0 - 0.1 K/cumm [facility] Lymphocyte abs 1.0 0.8 - 3.3 K/cumm [facility] Monocyte abs 0.5 0.2 - 0.8 K/cumm [facility] Eosinophil abs 0.4 0.0 - 0.5 K/cumm [facility] Basophil abs 0.1 0.0 - 0.1 K/cumm [facility] Neutrophil pct 70.6 % [facility] Comment: Interpretive Data Percent cell count reference ranges are not reported, since discordance with absolute values may lead to misinterpretation of CBC data. Current Interpretive Data was last revised on 2017. Imm gran pct 0.5 % [facility] Comment: Interpretive Data Percent cell count reference ranges are not reported, since discordance with absolute values may lead to misinterpretation of CBC data. Current Interpretive Data was last revised on 2017. Lymphocyte pct 15.3 % [facility] Comment: Interpretive Data Percent cell count reference ranges are not reported, since discordance with absolute values may lead to misinterpretation of CBC data. Current Interpretive Data was last revised on 2017. Monocyte pct 7.1 % [facility] Comment: Interpretive Data Percent cell count reference ranges are not reported, since discordance with absolute values may lead to misinterpretation of CBC data. Current Interpretive Data was last revised on 2017. Eosinophil pct 5.7 % [facility] Comment: Interpretive Data Percent cell count reference ranges are not reported, since discordance with absolute values may lead to misinterpretation of CBC data. Current Interpretive Data was last revised on 2017. Basophil pct 0.8 % [facility] Comment: Interpretive Data Percent cell count reference ranges are not reported, since discordance with absolute values may lead to misinterpretation of CBC data. Current Interpretive Data was last revised on 2017. Blood 08/16/2021 9:07 AM PVC LOADER 08/16/2021 2:34 PM PVC LOADER us Pepper Morgan MD LAB BLOOD ORDERABLES Final Result [facility] [address] Department [place] [address] * (ABNORMAL) Basic metabolic panel (08/16/2021 9:07 AM PVC LOADER) Sodium 141 135 - 145 mmol/L [facility] Potassium, pl 5.5(H) 3.3 - 4.9 mmol/L [facility] Chloride 103 97 - 110 mmol/L [facility] CO2 29 22 - 32 mmol/L [facility] Anion gap 9 2 - 15 mmol/L [facility] BUN 16 8 - 25 mg/dL [facility] Creatinine 0.99 0.60 - 1.10 mg/dL [facility] Glucose 90 70 - 199 mg/dL [facility] Comment: Interpretive Data Fasting glucose >/= 126 [...] Calcium 9.3 8.5 - 10.3 mg/dL [facility] Blood 08/16/2021 9:07 AM PVC LOADER 08/16/2021 2:34 PM PVC LOADER us Pepper Morgan MD LAB BLOOD ORDERABLES Final Result Performing Organization Address City/State/ZIP [place] Phone Number [facility] [address] Department [place] [address] * (ABNORMAL) Pro B-type natriuretic peptide (08/16/2021 9:07 AM PVC LOADER) NT-proBNP 2,345(H) <=450 pg/mL [facility] Comment: Interpretive Comments: A. [...] Revised Date: 2018. Blood 08/16/2021 9:07 AM PVC LOADER 08/16/2021 2:34 PM PVC LOADER us Pepper Morgan MD LAB BLOOD ORDERABLES Final Result [facility] [address] Department [place] [address] * (ABNORMAL) CBC with auto differential (08/16/2021 9:07 AM PVC LOADER) WBC 6.5 3.8 - 9.9 K/cumm [facility] Hgb 13.9 11.9 - 15.5 g/dL [facility] Hct 45.5 35.6 - 45.5 % [facility] Plt 313 150 - 400 K/cumm [facility] MPV 9.6 9.1 - 12.3 fL [facility] RBC 5.11 3.90 - 5.20 M/cumm [facility] MCV 89.0 81.3 - 96.4 fL [facility] MCH 27.2 27.1 - 33.3 pg [facility] MCHC 30.5(L) 32.3 - 35.7 g/dL [facility] RDW CV 13.8 11.1 - 14.9 % [facility] RDW SD 45.1 35.7 - 48.1 fL [facility] NRBC abs 0.00 0.00 - 0.01 K/cumm [facility] Blood 08/16/2021 9:07 AM PVC LOADER 08/16/2021 2:34 PM PVC LOADER us Pepper Morgan MD LAB BLOOD ORDERABLES Final Result [facility] [address] Department [place] [address] documented in this encounter Visit Diagnoses Diagnosis Atrial fibrillation, unspecified type (HCC) Medication monitoring encounter Encounter for therapeutic drug monitoring 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 Essential hypertension, benign Shortness of breath Hyperkalemia Hyperpotassemia documented in this encounter Care Teams Wet Mix Operator Relationship Specialty Start Date End Date Pepper Morgan MD PCP - General 09/16/16 Hank Garibay MD [address] [facility] [address] WARNER Sher[address] [place] [address] Surgeon Orthopedic Surgery 03/27/17 Jacky Murry MD [address] [facility] [address] WARNER Sher[address] [place] [address] Ophthalmology 03/27/17 Puma Mckenzie MD [address] [facility] [address] [place] [address] Surgeon Orthopedic Surgery 07/11/19 documented as of this encounter
--- OUTSIDE RECORDS SUMMARY | 2024-06-18 18:59 | XMS_ITS | Encounter Summary ---
Author Organization [facility] Medical Group Address [address] [facility] [address] [place] [address] Care Team Providers Care Shoe Lining Fitter Name Role Phone Pepper Morgan MD Primary Care Provider + [phone] Hank Garibay MD Unavailable [phone] Jacky Murry MD Unavailable [phone] Puma Mckenzie MD Unavailable [phone] Reason for Visit * Reason Onset Date Comments cleared for surgery 08/24/2021 Encounter Details Date Type Department Care Team (Late st Contact Info) Description 08/24/[address] [facility] Medical [facility] Orthopedics and Sports Medicine [address] [facility] [address] [address] Tasha Cowan MA cleared for surgery Social History Tobacco Use Types Packs/Day Years [...] on file Legal Sex Female 4:33 AM FACILITY SECURITY OFFICER Gender Identity Not on file Sexual Orientation Not on file Occupation Industry Job Start Date Job End Date retired Not on file Not on file Not on file documented as of this encounter Progress Notes * Tasha Cowan MA - 08/24/2021 3:52 PM CST Patient is cleared for LTHA on 09/15/[address] Morgan LITY SECURITY OFFICER documented in this encounter Plan of Treatment Not on file documented as of this encounter Visit Diagnoses Not on filedocumented in this encounter Care Teams Shoe Lining Fitter Relationship Specialty Start Date End Date Pepper Morgan MD PCP - General 09/16/16 Hank Garibay MD [address] [facility] [address] WARNER Sher[address] [place] [address] Surgeon Orthopedic Surgery 03/27/17 Jacky Murry MD [address] [facility] [address] WARNER Sher[address] [place] [address] Ophthalmology 03/27/17 Puma Mckenzie MD [address] [facility] [address] WARNER Sher[address] [place] [address] Surgeon Orthopedic Surgery 07/11/19 documented as of this encounter
--- OUTSIDE RECORDS SUMMARY | 2024-06-18 18:59 | XMS_ITS | Encounter Summary ---
Author Organization [facility] Address [address] [facility] [address] [place] [address] Care Team Providers Care Family Worker Name Role Phone Pepper Morgan MD Primary Care Provider [phone] Hank Garibay MD Unavailable [phone] Jacky Murry MD Unavailable [phone] Puma Mckenzie MD Unavailable [phone] Reason for Visit * Reason Onset Date Comments Surgery planning questions 07/15/2021 Encounter Details Date Type Department Care Team (Late st Contact Info) Description 07/15/2021 Telephone [facility] Orthopedics and Sports Medicine [address] [facility] [address] [address] Telma Love MA Surgery planning questions Social History Tobacco Use Types Packs/Day Years [...] on file Legal Sex Female 4:33 AM SORTER PACKER Gender Identity Not on file Sexual Orientation Not on file Occupation Industry Job Start Date Job End Date retired Not on file Not on file Not on file documented as of this encounter Miscellaneous Notes * Telephone Encounter - Telma Love MA - 07/15/2021 1:47 PM CST 1. 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 Yes 2. Have you ever had a problem with anesthesia? Yes- states it makes her very ill 3. Do you have anyone at home who can care for you? Yes 4. Do you have a preference of home health or outpatient therapy for the first two weeks? N/A 5. Lower extremity only Do you own a walker? Yes 6. What Pharmacy do you prefer - [facility] 7. What outpatient therapy location do you prefer - N/A ER PACKER documented in this encounter Plan of Treatment Not on file documented as of this encounter Visit Diagnoses Not on filedocumented in this encounter Care Teams Family Worker Relationship Specialty Start Date End Date Pepper Morgan MD PCP - General 09/16/16 Hank Garibay MD [address] [facility] [address] [place] [address] Surgeon Orthopedic Surgery 03/27/17 Jacky Murry MD [address] [facility] [address] [place] [address] Ophthalmology 03/27/17 Puma Mckenzie MD [address] [place] [address] [address] [place] [address] Surgeon Orthopedic Surgery 07/11/19 documented as of this encounter
--- OUTSIDE RECORDS SUMMARY | 2024-06-18 18:59 | XMS_ITS | Encounter Summary ---
Author Organization [facility] Address [address] [facility] [address] [place] [address] Care Team Providers Care Delivery And Mail Sorter Name Role Phone Pepper Morgan MD Primary Care Provider + [phone] Hank Garibay MD Unavailable [phone] Jacky Murry MD Unavailable [phone] Puma Mckenzie MD Unavailable [phone] Encounter Details Date Type Department Care Team (Late st Contact Info) Description 06/28/2021 Telephone [facility] [address] [place] [id number] Pepper Morgan MD [address] [place] [address] Social History Tobacco Use Types Packs/Day Years [...] on file Legal Sex Female 4:33 AM SOFTWARE 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 Let patient know she has refills at pharmacy WARE DEVELOPMENT ENGINEER * Telephone Encounter - Vickie Araujo - 06/28/2021 9:24 AM CST Patient calling she needs her eliquis refilled for twice a day. It is only once a day now. [facility]. Cbn: [phone] WARE DEVELOPMENT ENGINEER documented in this encounter Plan of Treatment Not on file documented as of this encounter Visit Diagnoses Not on filedocumented in this encounter Care Teams Delivery And Mail Sorter Relationship Specialty Start Date End Date Pepper Morgan MD PCP - General 09/16/16 Hank Garibay MD [address] [facility] [address] [facility] [address] [place] [address] Surgeon Orthopedic Surgery 03/27/17 Jacky Murry MD [address] [place] [address] [address] [place] [address] Ophthalmology 03/27/17 Puma Mckenzie MD [address] [place] [address] [address] [place] [address] Surgeon Orthopedic Surgery 07/11/19 documented as of this encounter
--- OUTSIDE RECORDS SUMMARY | 2024-06-18 18:59 | XMS_ITS | Encounter Summary ---
Author Organization [facility] Address [address] [address] Care Team Providers Care Civil Drafting Technician Name Role Phone Pepper Morgan MD Primary Care Provider [phone] Hank Garibay MD Unavailable [phone] Jacky Murry MD Unavailable [phone] Puma Mckenzie MD Unavailable [phone] Reason for Referral * Diagnostic Imaging (Routine) - Closed Specialty Diagnoses / Procedures Referred By Contnahun t Referred To Contact Diagnoses Left hip pain Procedures XR Hip Left 2 or 3 Views Puma Mckenzie MD Phone: tel: Referral ID Status Reason Start Date Expiration Date Visits Re quested Visits Authorized [id number] Closed 07/15/2021 08/14/2022 1 1 RT DISPATCHER Reason for Visit * Reason Comments Pain * Consultation (Routine) - Closed Specialty Diagnoses / Procedures Referred By Contac t Referred To Contact Orthopedic Surgery Diagnoses Hip arthritis Pepper Morgan MD Phone: tel: fax: Puma Mckenzie MD Phone: tel: Referral ID Status Reason Start Date Expiration Date V isits Requested Visits Authorized [id number] Closed Specialty Services Required 06/09/2021 07/09/2022 12 12 Encounter Details Date Type Department Care Team (Late st Contact Info) Description 07/15/2021 1:15 PM IMPORT DISPATCHER Office Visit [facility] Orthopedics and Sports Medicine [address] [facility] [address] [place] [phone] Puma Mckenzie MD [address] [place] [address] [address] [place] [address] Left hip pain (Primary Dx); Pre-operative exam; Primary osteoarthritis of left hip; Hip arthritis Social History Tobacco Use Types Packs/Day Years [...] on file Legal Sex Female 4:33 AM IMPORT DISPATCHER Gender Identity Not on file Sexual Orientation Not on file Occupation Industry Job Start Date Job End Date retired Not on file Not on file Not on file documented as of this encounter Last Filed Vital Signs Vital Sign Reading Time Taken Comments Blood Pressure 139/103 07/15/2021 1:09 PM IMPORT DISPATCHER Pulse 91 07/15/2021 1:09 PM IMPORT DISPATCHER Temperature - - Respiratory Rate - - Oxygen Saturation - - Inhaled Oxygen Concentration - - Weight 85.3 kg (188 lb) 07/15/2021 1:09 PM IMPORT DISPATCHER Height 152.4 cm (5') 07/15/2021 1:09 PM IMPORT DISPATCHER Body Mass Index 36.72 07/15/2021 1:09 PM IMPORT DISPATCHER documented in this encounter Progress Notes * Puma Mckenzie MD - 07/15/2021 1:15 PM CST Images from the original note were not included. FOLLOW UP VISIT Subjective CHIEF COMPLAINT She had concerns including Pain of the Left Hip. HISTORY OF PRESENT ILLNESS this is a pleasant 85-year-old female 2 years status post right total hip arthroplasty with a satisfactory result now complaining of left hip pain. She states it is primarily in the groin. It is worse with activity. She has diminished quality of life and pain with activities of daily living. She has failed extensive conservative management including anti-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s, pain medication, injections, activity modification, and more. She has questions regarding total hip replacement. Pain Assessment Pain Assessment: 0-10 Pain Score: 9 MEDICATIONS She has a current medication list which includes the following prescription(s): albuterol hfa, apixaban, biotin, cholecalciferol, felodipine, furosemide, pantoprazole dr, polyethylene glycol, pramipexole, propranolol, senna-docusate, spironolactone, and tramadol. REVIEW OF SYSTEMS Review of Systems Constitutional: Negative for appetite change and fever. HENT: Negative for drooling, facial swelling and voice change. Eyes: Negative for discharge. Respiratory: Negative for apnea and wheezing. Cardiovascular: Negative for chest pain and palpitations. Gastrointestinal: Negative for abdominal distention and abdominal pain. Endocrine: Negative for polydipsia. Genitourinary: Negative for flank pain. Musculoskeletal: Positive for arthralgias, gait problem, joint swelling and myalgias. Skin: Negative for color change and rash. Neurological: Negative for speech difficulty. Hematological: Does not bruise/bleed easily. Psychiatric/Behavioral: Negative for hallucinations. Objective PHYSICAL EXAM BP (!) 139/103 Pulse 91 Ht 152.4 cm (5') Wt 85.3 kg [...] negative Resisted SLR (straight leg raise): positive REVIEW OF X-RAYS/STUDIES/LABS XR Hip Left 2 or 3 Views Right total hip arthroplasty in appropriate position. Severe advanced left hip osteoarthritis with zqjc-gl-phrq contact, osteophyte formation, subluxation. Assessment/Plan Tess was seen today for pain. Diagnoses and all orders for this visit: Left hip pain - XR Hip Left 2 or 3 Views Pre-operative exam - Hemoglobin A1c; Future - Urinalysis reflex to microscopic and culture Urine; Future - XR Chest Pa Lateral 2 Views; Future - ECG 12 lead; Future - Comprehensive metabolic panel; Future - CBC with auto differential; Future PLAN I personally discussed the nature of the patient's arthritis with the patient in clinic today. The patient has tried conservative treatment with minimal relief. I recommended total hip replacement inclinic today and personally discussed the risks and benefits of total hip replacement with the patient. The risks that were discussed include, but are not limited to, delayed wound healing, infection, blood clot in the form of DVT or PE, leg length discrepancy, dislocation, periprosthetic fracture, persistent pain and dysfunction, need for additional surgery, implant wear and failure, perioperative myocardial infarction, stroke, pneumonia, and even . Patient understands these risks and agreed to proceed with the surgery as described above. All questions and concerns were addressed with the patient prior to informed surgical consent being established in the office today. The patient will follow up for surgery. Puma Mckenzie MD RT DISPATCHER documented in this encounter Plan of Treatment Not on file documented as of this encounter Procedures Procedure Name Priority Date/Time Associated Diagnosis Comments XR HIP LEFT 2 OR 3 VIEWS Schedule Routine, Read Routine (OP Routine) 07/15/2021 1:21 PM IMPORT DISPATCHER Left hip pain documented in this encounter Results * (ABNORMAL) CBC with auto differential (08/19/2021 9:19 AM IMPORT DISPATCHER) WBC 6.4 3.8 - 9.9 K/cumm [facility] ([place]) Hgb 13.4 11.9 - 15.5 g/dL [facility] ([place]) Hct 41.9 35.6 - 45.5 [...] NRBC abs 0.00 0.00 - 0.01 K/cumm [facility] ([place] Blood 08/19/2021 9:19 AM IMPORT DISPATCHER 08/19/2021 9:38 AM IMPORT DISPATCHER us Puma Mckenzie MD LAB BLOOD ORDERABLES Fin al Result [facility] ([place]) [address] [facility] Department of Laboratories [place] [id number] * Comprehensive metabolic panel (08/19/2021 9:19 AM IMPORT DISPATCHER) Sodium 136 135 - 145 mmol/L [facility] ([place] Potassium, pl 3.7 3.3 - 4.9 mmol/L [facility] ([place]) Chloride 100 97 - 110 mmol/L [facility] ([place]) CO2 25 22 - 32 mmol/L [facility]) Anion gap 10 2 - 15 mmol/L [facility] ([place] BUN 11 8 - 25 mg/dL [facility] ([place] Creatinine 0.63 0.60 - 1.10 mg/dL [facility] ([place]) Glucose 111 70 - 199 mg/dL [facility] ([place] Comment: Interpretive Data Fasting [...] [facility]) Blood 08/19/2021 9:19 AM IMPORT DISPATCHER 08/19/2021 9:38 AM IMPORT DISPATCHER us Puma Mckenzie MD LAB BLOOD ORDERABLES Fin al Result [facility] ([place]) [address] [facility] Department [place] [address] * Urinalysis reflex to microscopic and culture Urine (08/19/2021 9:19 AM IMPORT DISPATCHER) Color, ur Straw Yellow [facility] ([place]) [...] Urobilinogen, ur <2.0 <2.0 mg/dL [facility] ([place]) Nitrite, ur Negative Negative [facility] ([place]) Leukocyte esterase, ur Negative Negative [facility] ([place]) UA reflex comment Reflex conditions for microscopic UA and culture not met. [facility] ([place]) Urine 08/19/2021 9:19 AM IMPORT DISPATCHER 08/19/2021 9:39 AM IMPORT DISPATCHER Narrative [facility] ([place] - 08/19/2021 9:42 AM IMPORT DISPATCHER ?? Urine pH is affected by diet, medications, systemic acid-base disturbances, and renal tubular function. ??pH may affect urinary stone formation. ??For example, urine pH below 6.0 may help reduce the tendency for calcium phosphate stones and pH greater than 6.0 may reduce the tendency for uric acid stone formation. Source: [facility] [employer]. Last revised 06-29-2017 Puma Mckenzie MD LAB MICROBIOLOGY - GENER AL ORDERABLES Final Result Performing Organization Address [facility] de Phone Number [facility] ([place]) [address] [facility] [place] [address] * Hemoglobin A1c (08/19/2021 9:19 AM IMPORT DISPATCHER) Hgb A1C 5.6 4.0 - 5.6 % [facility] ([place] Estimated Average Glucose 114 mg/dL [facility] Comment: The ADA recommends reporting an estimated Average Glucose (eAG) with all Hemoglobin A1c results using the equation derived from a study of 507 normal and diabetic adults. ??Minority populations were underrepresented and children were not included. ?? (Diabetes Care 31:0759-0013, 2008). ??The eAG is not equivalent to a fasting glucose. Blood 08/19/2021 9:19 AM IMPORT DISPATCHER 08/19/2021 9:38 AM IMPORT DISPATCHER Puma Mckenzie MD LAB BLOOD ORDERABLES Fin al Result Performing Organization Address [facility] Co de Phone Number [facility] ([place] [address] [facility] [place] [address] * XR Hip Left 2 or 3 Views (07/15/2021 1:21 PM IMPORT DISPATCHER) Anatomical Region Laterality Modality Lower Extremities, Hip, Pelvis Left D igital Radiography Narrative 07/15/2021 1:48 PM IMPORT DISPATCHER ??Right total hip arthroplasty in appropriate position. ??Severe advanced left hip osteoarthritis with vqcm-[id number] contact, osteophyte formation, subluxation. Puma Mckenzie MD IMG XR PROCEDURES Final Result documented in this encounter Visit Diagnoses Diagnosis Left hip pain- Primary Pain in joint, pelvic region and thigh Pre-operative exam Unspecified pre-operative examination Primary osteoarthritis of left hip Hip arthritis Unspecified arthropathy, pelvic region and thigh Pre-operative exam Unspecified pre-operative examination documented in this encounter Orders Outpatient Referral Count Last Ordered Date Fir st Ordered Date AMB REFERRAL TO ORTHOPEDIC SURGERY 1 2021 documented in this encounter Care Teams Civil Drafting Technician Relationship Specialty Start Date End Date Pepper Morgan MD PCP - General 09/16/16 Hank Garibay MD [address] [facility] [address] [place] [address] Surgeon Orthopedic Surgery 03/27/17 Jacky Murry MD [address] [facility] [address] [place] [address] Ophthalmology 03/27/17 Puma Mckenzie MD [address] [facility] [address] [place] [address] Surgeon Orthopedic Surgery 07/11/19 documented as of this encounter
--- OUTSIDE RECORDS SUMMARY | 2024-06-18 18:59 | XMS_ITS | Encounter Summary ---
Author Organization [facility] Healthcare Address [address] [place] [address] Care Team Providers Care Diversity Manager Name Role Phone Pepper Morgan MD Primary Care Provider + [phone] Hank Garibay MD Unavailable [phone] Jacky Murry MD Unavailable [phone] Puma Mckenzie MD Unavailable [phone] Reason for Visit * Reason Comments Oral Swelling Encounter Details Date Type Department Care Team (Late st Contact Info) Description 09/15/2021 4:34 AM CDT - 09/16/2021 1:35 PM CDT Emergency [facility] [address] [place] [address] Miriam Chavez MD [address] [place] [id number] Mimi Rangel MD [address] [place] [address] [place] [address] Simone Membreno MD [address] [place] [address] Angioedema, initial encounter (Primary Dx) Discharge Disposition: Discharge [...] on file 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 Gender Identity Not on file Sexual Orientation Not on file Occupation Industry Job Start Date Job End Date retired Not on file Not on file Not on file documented as of this encounter Last Filed Vital Signs Vital Sign Reading Time Taken Comments Blood Pressure 150/76 09/16/2021 11:50 AM CDT Pulse 92 09/16/2021 11:50 AM CDT Temperature 36.4 ??C (97.5 ??F) 09/16/2021 11:50 AM C DT Respiratory Rate 18 09/16/2021 11:50 AM CDT Oxygen Saturation 98% 09/16/2021 11:50 AM CDT Inhaled Oxygen Concentration - - Weight 86.3 kg (190 lb 4.1 oz) 09/16/2021 5:46 A M CDT Height 152.4 cm (5') 09/15/2021 1:42 PM CDT Body Mass Index 37.16 09/15/2021 1:42 PM CDT documented in this encounter Discharge Diagnoses Diagnosis Angioneurotic edema, initial encounter - ANGIONEUROTIC EDEMA, INITIAL ENCOUNTER Hypertensive heart disease with heart failure (CMS/HCC) (HCC) - HYPERTENSIVE HEART DISEASE WITH HEART FAILURE Unspecified hypertensive heart disease with heart failure Heart failure, unspecified (CMS/HCC) (HCC) - HEART FAILURE, UNSPECIFIED Heart failure, unspecified Unspecified atrial fibrillation (HCC) - UNSPECIFIED ATRIAL FIBRILLATION Personal history of malignant melanoma of skin - PERSONAL HISTORY OF MALIGNANT MELANOMA OF SKIN Personal history of nicotine dependence - PERSONAL HISTORY OF NICOTINE DEPENDENCE Gastro-esophageal reflux disease without esophagitis - GASTRO-ESOPHAGEAL REFLUX DISEASE WITHOUT ESOPHAGITIS Unilateral primary osteoarthritis, left hip - UNILATERAL PRIMARY OSTEOARTHRITIS, LEFT HIP Obesity, unspecified - OBESITY, UNSPECIFIED [facility] (current) use of anticoagulants - [employer] (CURRENT) USE OF ANTICOAGULANTS Long-term (current) use of anticoagulants Other senior care (current) drug therapy - OTHER [facility] (CURRENT) DRUG THERAPY documented in this encounter Discharge Summaries * Simone Membreno MD - 09/16/2021 12:00 PM CDT Inpatient Discharge Summary BRIEF OVERVIEW Admitting Provider: Simone Membreno MD Discharge Provider: Simone Membreno MD Primary Care Physician at Discharge: Pepper Morgan MD [phone] Admission Date: 09/15/2021 Discharge Date: 09/16/2021 Discharge Diagnosis Angioedema Osteoarthritis hip Congestive heart failure Atrial fibrillation Hypertension Malignant melanoma Code Status at Discharge: Full Disposition Discharge to home or self care Outpatient Follow-Up As above Future Appointments Date Time Provider Department Center 10/01/2021 1:30 PM Kathie Cox PA [facility] Specialty 11/22/2021 8:20 AM Pepper Morgan MD AMS IM PSA DETAILS OF HOSPITAL STAY Presenting Problem/History of Present Illness ANGIOEDEMA, INITIAL ENCOUNTER Hospital Course [age] year lady with history of atrial fibrillation, congestive heart failure, arthritis, hypertension, gastroplasty, GERD, back pain, malignant melanoma. Patient has prior history of angioedema, has allergy to Lenny inhibitors in the past. She has prior history of arthritis She noted to have tongue and lip swelling from unknown reason, patient was unable to give herself the epi shot secondary to cost. She came to the emergency room and was subsequently admitted. During the emergency room she was given steroid, did not respond finally received epi shot which she improved slowly. Patient was supposed to have hip surgery was holding her anticoagulation for that. She lives at home, surrogate medical decision maker is her daughter Further hospital notes. Angioedema of the face, lips, tongue Patient received steroids/epi at emergency room Patient has prior history of angioedema, workup as outpatient in the past. 09/16 improving presently, diet, cleared for discharge if no further complication Osteoarthritis of hip Surgery pending 09/16 surgery delayed, restart anticoagulation Monitor outpatient Congestive heart failure Atrial fibrillation 09/16 restart anticoagulation, continue home medications Hypertension Malignant melanoma 09/16 continue following outpatient Discharge diagnosis Angioedema Osteoarthritis hip Congestive heart failure Atrial fibrillation Hypertension Malignant melanoma Physical Exam at Discharge Discharge Condition: stable Pulse: 92 Resp: 18 BP: 150/76 Temp: 36.4 ??C (97.5 ??F) Weight: 86.3 kg (190 lb 4.1 oz) Physical exam HEENT: NC Atraumatic , Sclera white, pupils reactive Neck: Supple no thyromegaly Chest: breath sounds are heard all areas, no crackles or wheezes Heart: regular rate and rhythm no murmur no clicks Abdomen:soft nontender, bowel sounds heard Musculoskeletal : no clubbing cyanosis or pedal edema Neurological : patient is awake and alert, answering questions appropriately no focal deficit. Operative Procedures Performed Procedure(s): Left Total Hip Arthroplasty- Anterior Approach Depuy- Actis, Omnitrac, Aquamantys, 1 liter beta rinse, Pt to stay (Rom conf 3/23 MG) No results found for this or any previous visit (from the past 24 hour(s)). ECG 12 lead Result Date: 09/15/2021 Narrative: Vent Rate: 101 bpm RR Interval: 593 msec IN Interval: 0 msec QRS Duration: 83 msec QT Interval: 337 msec QTC Interval: 395 msec P-R-T [place]: 0 - 68 - 21 degrees ATRIAL FIBRILLATION WITH RAPID VENTRICULAR RESPONSE ABNORMAL RHYTHM ECG Compared to prior EKG, heart rate has increased Atrial fibrillation has replaced sinus rhythm Electronically Signed By: Stalin Arauz MD XR Knee Left 3 Views Result Date: 08/24/2021 Narrative: X-ray of the left knee viewed and interpreted. There is no evidence of fracture, subluxation, or bony abnormality. Knee arthroplasty in good position with no interval change. CT Head WO Contrast Result Date: 09/15/2021 Narrative: EXAM DESCRIPTION: CT HEAD WO CONTRAST REASON FOR STUDY: Headache today. TECHNIQUE: Axialimages acquired through the brain without intravenous contrast. Images stored on PACS. Automated exposure control was used as a dose optimization technique for this examination. COMPARISON: None FINDINGS: BRAIN: No hemorrhage, edema or mass effect. No recent infarct. Moderate chronic ischemic changes in the periventricular white matter bilaterally. Mild generalized cerebral cortical atrophy. EXTRA-AXIAL SPACES: No fluid collections. No masses. CALVARIUM: No fracture. SINUSES/MASTOIDS: No fluid or mucosal thickening. ORBITS: No significant abnormality. OTHER: No other significant abnormality. IMPRESSION: No acute intracranial findings. THIS IS AN ELECTRONICALLY VERIFIED FINAL REPORT 09/15/2021 8:29 PM - Electronically signed by Kayode Phelps M.D. DL: SHARON Report ID: [id number] Reading Location: [place] [address] Your medication list CONTINUE taking these medications Instructions Last Dose Given Next Dose Due apixaban 5 mg tablet Commonly known as: ELIQUIS Take 1 tablet (5 mg total) by mouth 2 (two) times a day biotin 10,000 mcg capsule cholecalciferol 2000 unit tablet Commonly known as: VITAMIN D-3 furosemide 40 mg tablet Commonly known as: LASIX Take 1 tablet (40 mg total) by mouth daily pantoprazole DR 20 mg EC tablet Commonly known as: PROTONIX Take 1 tablet (20 mg total) by mouth daily With the largest meal polyethylene glycol 17 gram packet Commonly known as: MIRALAX Take 1 packet (17 g total) by mouth daily pramipexole 0.125 mg tablet Commonly known as: MIRAPEX Take 1 tablet (0.125 mg total) by mouth 3 (three) times a day Take at 9:00 a.m., 3:00 p.m., 9:00 p.m. propranoloL 20 mg tablet Commonly known as: INDERAL Take 1 tablet (20 mg total) by mouth 2 (two) times a day as needed (Tremor) senna-docusate 8.6-50 mg Commonly known as: Senna-S Take 1 tablet by mouth daily spironolactone 25 mg tablet Commonly known as: Aldactone Take 0.5 tablets (12.5 mg total) by mouth daily Take 1/2 tablet daily traMADoL 50 mg tablet Commonly known as: ULTRAM Take 0.5-1 tablets (25-50 mg total) by mouth 2 (two) times a day STOP taking these medications felodipine 5 mg 24 hr tablet Commonly known as: PLENDIL Time spent for discharge planning, orders, summary is 35 minutes. documented in this encounter Discharge Instructions * Discharge Instr - Other Orders* Concetta Alejandre RN - 09/16/2021 12:49 PM CDT If you have any questions or concerns after discharge, please call [facility] [phone]. documented in this encounter Medications at Time of Discharge cholecalciferol (VITAMIN D-3) 2000 unit tablet Take 1 tablet (2,000 Units total) by mouth daily apixaban (ELIQUIS) 5 mg tabletIndications:A trial fibrillation, unspecified type (HCC) Take 1 tablet (5 mg total) by mouth 2 (two) times a day 60 tablet 11 05/31/2021 2 biotin 10,000 mcg capsule Take by mouth 2 furosemide (LASIX) 40 mg tabletIndications:B enign hypertension Take 1 tablet (40 mg total) by mouth daily 90 tablet 1 08/23/[address] (PROTONIX) [...] documented in this encounter Progress Notes * Néstor Frsot RN - 09/16/2021 11:10 AM CDT CM Initial Assessment Interview Note Information Obtained From: Patient (09/16/211107) Admission Source: ED Impression: tongue swelling Plan Includes: evaluation Primary Source of Transportation: Does the patient need discharge transport arranged?: Yes Has discharge transport been arranged?: No (09/15/211337) Health Insurance Coverage: Medicare A and B, Blue Cross Prescription Coverage: yes Pharmacy: [facility] Primary Care Provider: Pepper Morgan MD Prior to Admission: Primary Caregiver: Self Home Care Services: No Durable Medical Equipment: Walker (wheeled) Living Arrangements: Alone Type of Residence: Private residence Steps in home? : No steps inside or outside Number of steps inside:: 2 steps (handiccaped accessible) (09/15/211337) Behavioral Health Services: Behavioral Health Services: No (09/16/211107) Patient expects to be Discharged to: Private residence, (09/16/211107) Additional Information: Discharge plan discussed with the patient. She lives at home in a condo alone. She has a wheeled walker at home and is independent with ADLs. Plan is to return home, daughter will pick her up. Observation booklet given and WARD letter signed at 1015. Patient's Identified Problem/Goal Problem: Ensure acute medical needs are met and that patient has a safe discharge plan. Goal: Secure a discharge plan that patient/family are agreeable with and ensure patient has continuum of care. Case management will follow for discharge planning and send referrals as needed. Néstor Frost RN documented in this encounter H&P Notes * Simone Membreno MD - 09/16/2021 11:52 AM CDT General Medicine History and Physical Subjective Patient is a 85 y.o. female with chief complaint of face and tongue swelling HPI: [age] year lady with history of atrial fibrillation, congestive heart failure, arthritis, hypertension, gastroplasty, GERD, back pain, malignant melanoma. Patient has prior history of angioedema, has allergy to Lenny inhibitors in the past. She has prior history of arthritis She noted to have tongue and lip swelling from unknown reason, patient was unable to give herself the epi shot secondary to cost. She came to the emergency room and was subsequently admitted. During the emergency room she was given steroid, did not respond finally received epi shot which she improved slowly. Patient was supposed to have hip surgery was holding her anticoagulation for that. She lives at home, surrogate medical decision maker is her daughter. Past Medical History: Diagnosis Date ??? Arrhythmia A-fibrillation ??? Arthritis of ankle ??? Basal cell carcinoma of nose 09/2008 ??? Fibrocystic breast ??? GERD (gastroesophageal reflux [...] tunnel syndrome ??? Superficial basal cell carcinoma 2002 Cancer, basal Cell ??? Tobacco use 1-2ppd [...] The successful right hip replacement Dr. Mckenzie Medications Prior to Admission Medication Sig Dispense Refill Last Dose ??? apixaban (ELIQUIS) 5 mg tablet Take [...] 2 (two) times a day40 tablet 5 Allergies Allergen Reactions ??? Celecoxib Anaphylaxis ??? [...] comments) Night hines Social History Tobacco Use ??? Smoking status: Former Smoker Quit date: 1991 Years since quittin.2 ??? Smokeless tobacco: Never Used Substance Use Topics ??? Alcohol use: Not Currently Family History Problem Relation Age of Onset ??? Cancer Other Family history of Cancer, unknown; ??? Arthritis Other Family history of Arthritis; ??? Abdominal Aortic Aneurysm Father ??? COPD Father Review of Systems Regarding any recent symptoms Constitutional : No fevers, chills, weight loss Skin: No rashes, no jaundice Eyes: No recent vision changes, eye pain ENT: no discharge from the throat, bleeding, hearing is normal Cardiovascular: No chest pain, palpitations, paroxysmal nocturnal dyspnea Respiratory: No dyspnea on exertion, cough. Gastrointestinal: No abdominal pain, vomiting, diarrhea. Endocrine: No loss of appetite, dizziness, sweating. Genitourinary: No discharge in the urine, frequency. Musculoskeletal: No pain or generalized aches, back pain Neurology : No headaches, dizziness, weakness Psychiatric: No fluctuating mental status, depression, anxiety. Objective Vitals: Arrival Vitals Temp 09/15/21 0440 (!) 35.9 ??C (96.7 ??F) Pulse 09/15/21 0440 90 Resp 09/15/21 0440 14 BP 09/15/21 0440 154/96 SpO2 09/15/21 0440 96 % Temp src 09/15/21 1342 Temporal Heart Rate Source 09/15/211999 Monitor Patient Position 09/15/21 1342 Sitting BP Location 09/15/21 1342 Right arm FiO2 (%) -- 24hr Min/Max: Temp Min: 36.1 ??C (97 ??F) Max: 36.6 ??C (97.9 ??F) Pulse Min: 82 Max: 108 BP Min: 138/68 Max: 159/89 Resp Min: 16 Max: 20 SpO2 Min: 96 % Max: 100 % Most Recent : Vitals: 09/16/21 1150 BP: 150/76 Pulse: 92 Resp: 18 Temp: 36.4 ??C (97.5 ??F) SpO2: 98% I/O last 2 completed shifts: In: 1393 [I.V.:1393] Out: 150 [Urine:150] No intake/output data recorded. Physical exam: Head:NC Atraumatic . Eye: Sclera white, pupils reactive ENT: Mouth is moist, no discharge from nose Skin: No rash, jaundice Neck: Supple, no thyromegaly Chest: breath sounds are heard all areas, no crackles or wheezes Heart: regular rate and rhythm ,no murmurs. Abdomen:soft nontender, bowel sounds heard Musculoskeletal : no joint tenderness, weakness. Ext: No clubbing , pedal edema. Neurological : No weakness, no focal deficit. Mental status: Awake and alert, answering questions appropriately Lab/Radiology/Diagnostic Review: No results found for this or any previous visit (from the past 24 hour(s)). Assessment and plan Assessment /Plan Principal Problem: Primary osteoarthritis of left hip Active Problems: Angio-edema Angioedema of the face, lips, tongue Patient received steroids/epi at emergency room Patient has prior history of angioedema, workup as outpatient in the past. 09/16 improving presently, diet, cleared for discharge if no further complication Osteoarthritis of hip Surgery pending 09/16 surgery delayed, restart anticoagulation Congestive heart failure Atrial fibrillation 09/16 restart anticoagulation, continue home medications Hypertension Malignant melanoma 09/16 continue following outpatient DVTprophylaxis in place Medical necessity statement : Estimated Stay less than than 2 midnights Medical decision making level: Moderate / High To do this note, dictation phone was used, may result in grammatical errors, please check, thank you. documented in this encounter Nursing Notes * Dulce Hernandez RN - 09/16/2021 1:35 PM CDT Discharge paperwork discussed with patient and signed by patient. Pt. IV removed and intact. Pt. belongings packed and intact. Pt left with daughter. * Pam Alex RN - 09/15/2021 5:32 PM CDT Swalloving test performed, patient is able to swallow well, drank from cup well. Medicated with tylenol for headache x1. Md called for patient due to restless leg syndrome medication pramipexole, andpt. Took it well. 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 She states that this has happened in the past. Pt states that she is scheduled to have hip replacement surgery this morning at [address] Mckenzie and did not take any PO benadryl at home due to being NPO after midnight. Pt maintaining secretions, voice is slightly muffed. * Miriam Chavez MD - 09/15/2021 5:14 AM CDT Triage Chief Complaint: Chief Complaint Patient presents with ??? Oral Swelling HPI: Tess Benedict is a 85 y.o. female with history of angioedema who presents for left-sided tongueswelling. She has had this in the past. No clear trigger. She is no longer on any Lenny inhibitor or Arb. She has no family history of angioedema. She did not have any new medications or foods or otherexposures that she may be allergic to. No skin changes. No wheezing or difficulty breathing. She has a prescription for EpiPen, but did not use it. She did not take anything before coming into the emergency department. Currently NPO because she is positive surgery this morning with dameon Gibbs. ROS: At least 5 systems reviewed and otherwise negative except as in the HPI or nursing notes. Past Medical History: Diagnosis Date ??? Arrhythmia A-fibrillation ??? Arthritis of ankle ??? Basal cell carcinoma of nose 09/2008 ??? Fibrocystic breast ??? GERD (gastroesophageal reflux [...] hip replacement Dr. Mckenzie HOME MEDICATIONS : apixaban (ELIQUIS) 5 mg tablet biotin 10,000 mcg capsule cholecalciferol (VITAMIN D-3) 2000 unit tablet felodipine (PLENDIL) 5 mg 24 hr tablet furosemide (LASIX) 40 mg tablet guaiFENesin ER (MUCINEX) 600 mg [address] (PROTONIX) 20 mg EC tablet polyethylene glycol (MIRALAX) 17 gram packet pramipexole (MIRAPEX) 0.125 mg tablet propranoloL (INDERAL) 20 mg tablet senna-docusate (Senna-S) 8.6-50 mg spironolactone (Aldactone) 25 mg tablet traMADoL (ULTRAM) 50 mg tablet Allergies Allergen Reactions ??? Celecoxib Anaphylaxis ??? Scopolamine Mental status changes Delirium postop after joint replacement due to this medicine ??? Sulfa (Sulfonamide Antibiotics) Anaphylaxis ??? Amlodipine Swelling ??? Lisinopril Swelling ??? Trazodone Swelling Tongue ??? Cymbalta [Duloxetine] Fatigue Sleepiness, tiredness possibly related to 20 mg morning dose of this medicine discontinued 11/30/2020 ??? Sinemet [Carbidopa-Levodopa] Other (See comments) [facility] Nursing Triage Notes Reviewed Physical Exam: ED Triage Vitals [09/15/21 0440] Temp Pulse Resp BP SpO2 (!) 35.9 ??C (96.7 ??F) 90 14 154/96 96 % Temp src Heart Rate Source Patient Position BP Location FiO2 (%) -- -- -- -- -- GENERAL APPEARANCE: Awake and alert. No acute distress. HEAD: Normocephalic. Atraumatic. EYES: Sclera anicteric. ENT: Tolerates saliva. Anterior left side of the tongue appears to be swollen. Left TM is normal. No stridor. No drooling. NECK: Supple. Trachea midline. No meningismus. LUNGS: Respirations unlabored. Lung sounds are clear bilaterally. EXTREMITIES: No acute deformities. SKIN: Warm and dry, no visible rashes, appears well perfused. NEUROLOGICAL: No gross facial drooping. Moves all 4 extremities spontaneously. PSYCHIATRIC: Normal mood. Labs Reviewed - No data to display No orders to display Procedures ED COURSE: Vitals: 09/15/21 0440 BP: 154/96 Pulse: 90 Resp: 14 Temp: (!) 35.9 ??C (96.7 ??F) SpO2: 96% MDM: Patient treated with Solu-Medrol and Benadryl. Patient signed out to Dr. Rangel for re-evaluation.Because she is protecting her airway and the swelling seems very anterior and on chart review last time it just went away on its own without any intervention, will just continue to monitor patient and make sure she is improving appropriately before discharge. Clinical Impression: 1. Angioedema, initial encounter Disposition: Likely discharge (Please note that portions of this note may have been completed with a voice recognition program. Occasionally words are mis-transcribed.) Miriam Chavez MD 09/15/21 0731 documented in this encounter Miscellaneous Notes * Plan of Care - Dulce Hernandez RN - 09/16/2021 12:11 PM CDT Goals: Clinical Goals for the Shift: VSS, tolerate diet, free from falls/injuries Problem: Health Behavior: Goal: Understanding of discharge [...] will improve Outcome: Progressing Goal: Knowledge of disease or condition will improve Outcome: Progressing Goal: Knowledge of safety precautions will improve Outcome: Progressing Goal: Knowledge of the prescribed therapeutic regimen will improve Outcome: Progressing Problem: Health Behavior: Goal: Ability to state signs and symptoms to report to health care provider will improve Outcome: Progressing Problem: Physical Regulation: Goal: Ability to maintain clinical measurements within normal limits will improve Outcome: Progressing Problem: Infection Risk: Goal: Will remain free from infection Outcome: Progressing Problem: Safety: Goal: Ability to remain free from injury will improve Outcome: Progressing Goal: Will remain free from falls Outcome: Progressing Problem: Sensory: Goal: Pain level will decrease Outcome: Progressing * Plan of Care - Chata Webster RN - 09/16/2021 3:34 AM CDT Goals: Clinical Goals for the Shift: VSS, monitor pain, no falls/injuries Summary: VSS. Pt c/o headache tonight. Dr. Dougherty notified and 1x dose of [place] given and CT of head done, no acute findings. Pt is A&O x4 and standby assist with walker. No falls/injuries. Call light within reach and bed in low position/bed alarm on for safety. * ED Re-evaluation Note - Mimi Rangel MD - 09/15/2021 6:49 AM CDT ED Re-evaluation Care accepted from Dr. Chavez at 6:30 a.m. 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 Treated with Benadryl and steroids. Observing an ER. Is scheduled for surgery today. Will reassess. Surgery has been canceled I reassessed patient. Angioedema persists. I discussed with her that she will need epinephrine at this point. She and daughter want to treat with ice chips. They are upset for multiple reasons 1. Because she is not having surgery it is been canceled by the surgeon. 2. Because epi pens cost 600 dollars. She does not want to spend that kind of money on one. I told her I agree this was very expensive and I was sorry but I was not charging this amount of money and had nothing to do with that. I didtell her that sometimes it was critical to have the EpiPen at home so that she could give it to herself and get to the hospital for further treatment to prevent her airway from closing off and causing . 3. She wanted to treat with ice chips. I told her ice would be inappropriate at this time because she still has angioedema and if she takes anything orally and has a worsening airway issue itcould be extremely bad for her - she could aspirate which could lead to her . She needs to remain NPO. She rolled her eyes and told me this was the treatment as did her daughter who said I was ba cking them into a corner. Then she told me they wanted to talk to Dr. Morgan who would guide the care. I told her she was more than welcome to talked test Dr. Morgan but ultimately at this time I am the emergency room physician and that I have to treat her appropriately since she is a patient in this emergency room. I am going to order the epinephrine as we discussed at length and she is free to decline it if she likes. If she does choose to decline it and wants to leave without full treatment, and possible admission for her ongoing angioedema that is not resolved, then I will need her to sign out against medical advice. I told her I am concerned for her safety. I also discussed that we would still give epinephrine to a patient to has recalcitrant angioedema even if they do have atrial fibrillation. I notified the patient's nurse and charge nurse. After 5 hours in the emergency room and continued angioedema, I am going to admit this patient for observation. Discussed with Dr. Membreno, who will admit for observation. Mimi Rangel MD 09/15/21 1255 EKG done at 9:00 a.m. atrial fibrillation rate [address] changes Mimi Rangel MD 09/15/21 1300 documented in this encounter Plan of Treatment Not on file documented as of this encounter Procedures Procedure Name Priority Date/Time Associated Diagnosis Comments CT HEAD WO CONTRAST ED Urgent/IP Urgent 09/15/2021 8:25 PM CDT TROPONIN T HIGH-SENSITIVITY STAT 09/15/2021 9:17 AM CDT EGFR STAT 09/15/2021 9:17 AM CDT CBC WITH AUTO DIFFERENTIAL STAT 09/15/2021 9:17 AM CDT MANUAL DIFFERENTIAL STAT 09/15/2021 9 :17 AM CDT BASIC METABOLIC PANEL STAT 09/15/2021 9:17 AM CDT ECG 12-LEAD STAT 09/15/2021 9:00 AM CDT documented in this encounter Results * CT Head WO Contrast (09/15/2021 8:25 PM CDT) Anatomical Region Laterality Modality Head and Neck N/A Computed Tomogra phy 09/15/2021 8:27 PM CDT Narrative 09/15/2021 8:29 PM CDT EXAM DESCRIPTION: ?? CT HEAD WO CONTRAST REASON FOR STUDY: Headache today. TECHNIQUE: Axial images acquired through the brain without intravenous contrast. ??Images stored on PACS. ?? Automated exposure control was used as a dose optimization technique for this examination. COMPARISON: ?? None FINDINGS: BRAIN: ?? No hemorrhage, edema or mass effect. No recent infarct. ?Moderate chronic ischemic changes in the periventricular white matter bilaterally. ?? Mild generalized cerebral cortical atrophy. ? EXTRA-AXIAL SPACES: ?? No fluid collections. No masses. CALVARIUM: ?? No fracture. SINUSES/MASTOIDS: ?? No fluid or mucosal thickening. ORBITS: ?? No significant abnormality. OTHER: ?? No other significant abnormality. IMPRESSION: ??No acute intracranial findings. THIS IS AN ELECTRONICALLY VERIFIED FINAL REPORT 09/15/2021 8:29 PM - Electronically signed by ??Kayode Phelps M.D. DL: SHARON D: ??09/15/2021 8:29 PM T: ??09/15/2021 8:29 PM Report ID: [id number] Reading Location: ??[id number] Procedure Note Kayode Phelps MD - 09/15/2021 EXAM DESCRIPTION: CT HEAD WO CONTRAST REASON FOR STUDY: Headache today. TECHNIQUE: Axial images acquired through the brain without intravenous contrast. Images stored on PACS. Automated exposure control was used asa dose optimization technique for this examination. COMPARISON: None FINDINGS: BRAIN: No hemorrhage, edema or mass effect. No recent infarct.Moderate chronic ischemic changes in the periventricular white matter bilaterally. Mild generalized cerebral cortical atrophy. EXTRA-AXIAL SPACES: No fluid collections. No masses. CALVARIUM: No fracture. SINUSES/MASTOIDS: No fluid or mucosal thickening. ORBITS: No significant abnormality. OTHER: No other significant abnormality. IMPRESSION: No acute intracranial findings. THIS IS AN ELECTRONICALLY VERIFIED FINAL REPORT 09/15/2021 8:29 PM - Electronically signed by Kayode Phelps M.D. DL: SHARON Report ID: [id number] Reading Location: [place] [address] Shelli Dougherty MD IMG CT PROCEDURES F inal Result * eGFR (09/15/2021 9:17 AM CDT) eGFR 87 mL/min/1. 73 m2 [facility] [...] interpretive data was last reviewed 2021. Blood 09/15/2021 9:17 AM CDT 09/15/2021 9:20 AM CDT us Mimi Rangel MD LAB BLOOD ORDERABLES Farzana hernandez Result [facility] ([place]) 1 [facility] Department [place] [address] * (ABNORMAL) Manual Differential (09/15/2021 9:17 AM CDT) Differential Manual [facility] ([place]) Cells Counted 100 [facility] ([place]) Neutrophil abs 11.0(H) 1.7 - 6.5 K/cumm [facility] ([place]) Lymphocyte abs 0.7(L) 0.8 - 3.3 K/cumm [facility] ([place]) Monocyte abs 0.4 0.2 - 0.8 K/cumm [facility] ([place]) Neutrophil pct 91.0 % [facility] ([place]) Comment: Interpretive Data Percent cell count reference ranges are not reported, since discordance with absolute values may lead to misinterpretation of CBC data. Current Interpretive Data was last revised on 2017. Lymphocyte pct 3.0 % [facility] ([place]) Comment: Interpretive Data Percent cell count reference ranges are not reported, since discordance with absolute values may lead to misinterpretation of CBC data. Current Interpretive Data was last revised on 2017. Monocyte pct 3.0 % [facility] ([place]) Comment: Interpretive Data Percent cell count reference ranges are not reported, since discordance with absolute values may lead to misinterpretation of CBC data. Current Interpretive Data was last revised on 2017. Variant lymph pct 3.0(H) 0.0 - 0.0 % [facility] ([place]) RBC morphology Consistent with RBC Indicies [facility] ([place]) Anisocytosis Slight(A) [facility] ([place]) Platelet estimate Increased(A) [facility] ([place]) Blood 09/15/2021 9:17 AM CDT 09/15/2021 9:20 AM CDT Mimi Rangel MD LAB BLOOD ORDERABLES Farzana l Result Performing Organization Address City/[facility] Co de Phone Number [facility] ([place]) 1 [facility] [place] [address] * Troponin T high-sensitivity (09/15/2021 9:17 AM CDT) Pathologist [facility] [place] Trop T hs 8 <=14 ng/L [facility] ([place]) Comment: Interpretive Data For further hscTnT resources including the diagnostic algorithm and an aid in interpretation, copy and paste this link: [email or web address].testcatalog.org/show/hsTrop Current Interpretive Data last revised 2020. Blood 09/15/2021 9:17 AM CDT 09/15/2021 9:20 AM CDT Mimi Rangel MD LAB BLOOD ORDERABLES Farzana l Result Performing Organization Address [facility] Co de Phone Number [facility] ([place]) 1 [facility] [place] [address] * (ABNORMAL) Basic metabolic panel (09/15/2021 9:17 AM CDT) Sodium 134(L) 135 - 145 mmol/L [facility] ([place]) Potassium, pl 4.3 3.3 - 4.9 mmol/L [facility] ([place]) Chloride 99 97 - 110 mmol/L [facility] ([place]) CO2 25 22 - 32 mmol/L [facility] ([place]) Anion gap 11 2 - 15 mmol/L [facility] ([place]) BUN 17 8 - 25 mg/dL [facility] ([place]) Creatinine 0.65 0.60 - 1.10 mg/dL [facility] ([place]) Glucose 126 70 - 199 mg/dL [facility] ([place]) [...] 2017. Calcium 9.5 8.5 - 10.3 mg/dL [facility] ([place]) Blood 09/15/2021 9:17 AM CDT 09/15/2021 9:20 AM CDT Mimi Rangel MD LAB BLOOD ORDERABLES Farzana hernandez Result [facility] ([place]) 1 [facility] Department of Laboratories [place], [place] [id number] * (ABNORMAL) CBC with auto differential (09/15/2021 9:17 AM CDT) WBC 12.1(H) 3.8 - 9.9 K/cumm [facility] ([place]) Hgb 14.6 11.9 - 15.5 g/dL [facility] ([place]) Hct 44.6 35.6 - 45.5 % [facility] ([place]) Plt 315 150 - 400 K/cumm [facility] ([place]) MPV 8.8(L) 9.1 - 12.3 fL [facility] ([place]) RBC 5.34(H) 3.90 - 5.20 M/cumm [facility] ([place]) MCV 83.5 81.3 - 96.4 fL [facility] ([place]) MCH 27.3 27.1 - 33.3 pg [facility] ([place]) MCHC 32.7 32.3 - 35.7 g/dL [facility] ([place]) RDW CV 13.8 11.1 - 14.9 % [facility] ([place]) RDW SD 42.1 35.7 - 48.1 fL [facility] ([place]) NRBC abs 0.00 0.00 - 0.01 K/cumm [facility] ([place]) Blood 09/15/2021 9:17 AM CDT 09/15/2021 9:20 AM CDT Mimi Rangel MD LAB BLOOD ORDERABLES Farzana l Result Performing Organization Address City/[facility] Co de Phone Number [facility] ([place]) 1 [facility] [place] [address] * ECG 12 lead (09/15/2021 9:00 AM CDT) 09/15/2021 9:00 AM CDT Narrative [facility] - 09/15/2021 11:12 AM CDT Vent Rate: 101 bpm RR Interval: 593 msec IN Interval: 0 msec QRS Duration: 83 msec QT Interval: 337 msec QTC Interval: 395 msec P-R-T [place]: 0 - 68 - 21 degrees ATRIAL FIBRILLATION WITH RAPID VENTRICULAR RESPONSE ABNORMAL RHYTHM ECG Compared to prior EKG, heart rate has increased Atrial fibrillation has replaced sinus rhythm Electronically Signed By: Stalin Arauz MD Mimi Rangel MD ECG ORDERABLES Edited Re sult - Final Performing Organization Address [facility]/ZIP Co de Phone Number [facility] [place] [facility] documented in this encounter Visit Diagnoses Diagnosis Primary osteoarthritis of left hip- Primary Angioedema, initial encounter Angio-edema Angioneurotic edema not elsewhere classified documented in this encounter Admitting Diagnoses Diagnosis Primary osteoarthritis of left hip Angio-edema Angioneurotic edema not elsewhere classified documented in this encounter Administered Medications Inactive Administered Medications - up to 3 most recent administrations Medication Order MAR Action Action Date Dose Rate Site acetaminophen (TYLENOL) tablet 650 mg 650 mg, oral, Every 6 hours PRN, 1st line for pain, Starting on Mon09/15/21 at 1535 Given 09/15/2021 5:05 PM CDT 650 mg bisacodyl EC (DULCOLAX EC) tablet 10 mg 10 mg, oral, Daily PRN, constipation, If no results 24 hours after milk of magnesia, Starting on Mon09/15/21 at 1535, Do not crush, chew, cut, dissolve, open or otherwise manipulate tablet/capsule. diphenhydrAMINE (BENADRYL) injection 50 mg 50 mg, intravenous, Administer over 2 Minutes, Once, On Mon09/15/21 at 0454, For 1 dose Given 09/15/2021 5:02 AM CDT 50 mg EPINEPHrine 1 mg/mL (1 mL) injection 0.3 mg 0.3 mg, intramuscular, Once, On Mon09/15/21 at 0838, For 1 dose Given 09/15/2021 9:11 AM CDT 0.3 mg Other (Comment) famotidine (PEPCID) tablet 20 mg 20 mg, oral, Daily, First dose on [place] 09/16/21 at 1200, Medication, pantoprazole 40, changed from PPI to H2 antagonist famotidine 20 mg po daily per protocol for indication of stress ulcer prophylaxis. Frequency of famotidine decreased per renal protocol for CrCl=30-49 ml/min (CrCl=38.3 ml/min) Estimated Creatinine Clearance: 38.3 mL/min (by C-G formula based on SCr of 0.65 mg/dL)., Indications: Prevention of Stress UlcerIndications:Preventi on of Stress Ulcer HYDROcodone-acetaminophen (NORCO) 5-325 mg per tablet 1 tablet 1 tablet, oral, Once, On Mon09/15/21 at 2230, For 1 dose, Indications: PainIndications:Pain Given 09/15/2021 10:12 PM CDT 1 tablet magnesium hydroxide (MILK OF MAGNESIA) 80 mg/mL (33.3 mg/mL as elemental magnesium) oral suspension 30 mL 30 mL, oral, Daily PRN, constipation, Starting on Mon09/15/21 at 1535 methylPREDNISolone sodium succinate (SOLU-medrol) preservative free injection 125 mg 125 mg, intravenous, Administer over 3 Minutes, Once, On Mon09/15/21 at 0454, For 1 dose Given 09/15/2021 5:02 AM CDT 125 mg mineral oil (FLEET MINERAL OIL) enema 1 enema 1 enema, rectal, Daily PRN, constipation, if no results 24 hours after bisacodyl, Starting on Mon09/15/21 at 1535, Indications: constipationIndications:c onstipation ondansetron (ZOFRAN) injection 4 mg 4 mg, intravenous, Administer over 2 Minutes, Every 4 hours PRN, nausea, vomiting, Starting on Mon09/15/21 at 1535 ondansetron (ZOFRAN) tablet 4 mg 4 mg, oral, Every 4 hours PRN, nausea, vomiting, Starting on Mon09/15/21 at 1535 pramipexole (MIRAPEX) tablet 0.125 mg 0.125 mg, oral, Once, On Mon09/15/21 at 1800, For 1 dose Given 09/15/2021 5:21 PM CDT 0.125 mg pramipexole (MIRAPEX) tablet 0.125 mg 0.125 mg, oral, 3 times daily, First dose on Mon09/15/21 at 2100, Indications: Idiopathic Parkinsonism, Restless Legs SyndromeIndications:Idiop athic Parkinsonism,Restless Legs Syndrome Given 09/16/2021 8:44 AM CDT 0.125 mg Given 09/15/2021 8:49 PM CDT 0.125 mg sodium chloride 0.9% infusion 100 mL/hr, intravenous, Continuous, Starting on Mon09/15/21 at 1415 New Bag 09/16/2021 1:51 AM CDT 100 mL/hr 100 mL/hr New Bag 09/15/2021 2:29 PM CDT 100 mL/hr 100 mL/hr traMADoL (ULTRAM) tablet 25 mg 25 mg, oral, 2 times daily, First dose on Mon09/15/21 at 2100 Given 09/15/2021 8:49 PM CDT 25 mg documented in this encounter Discontinued Medications Medication Sig Discontinue Reason Start Date End Da te guaiFENesin ER (MUCINEX) 600 mg 12 hr tabletIndications:Dysfun ction of both eustachian tubes Take 1 tablet (600 mg total) by mouth 2 (two) times a day Therapy completed 08/23/2021 09/15/2021 felodipine (PLENDIL) 5 mg 24 hr tabletIndications: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 Take 1 tablet (5 mg total) by mouth daily Stop Taking at Discharge 08/23/2021 09/16/2021 documented as of this encounter Active and Recently Administered Medications Times are shown in CDT. Scheduled Medication Order 09/14/2021 09/15/2021 09/16/2021 apixaban (ELIQUIS) tablet 5 mg 5 mg, oral, 2 times daily, First dose on [place] 09/16/21 at 1200, Nurse to discontinue heparin infusion order and associated bolus at first administration of apixaban using ? order condition met? order source, Indications: atrial fibrillation 1135 (Not Given - Provider: Dulce Hernandez RN - Reason: Patient/family refused) cholecalciferol (VITAMIN D-3) tablet 2,000 Units 2,000 Units, oral, Daily, First dose on [place] 09/16/21 at 1200 1135 (Not Given - Provider: Dulce Hernandez RN - Reason: Patient/family refused) diphenhydrAMINE (BENADRYL) injection 50 mg (COMPLETED) 50 mg, intravenous, Administer over 2 Minutes, Once, On Mon09/15/21 at 0454, For 1 dose 0502 (Given - Provider: Rufina Valladares, XU) EPINEPHrine 1 mg/mL (1 mL) injection 0.3 mg (COMPLETED) 0.3 mg, intramuscular, Once, On Mon09/15/21 at 0838, For 1 dose 0911 (Given - Provider: Joaquín Orozco RN - Comment: right thigh) famotidine (PEPCID) tablet 20 mg 20 mg, oral, Daily, First dose on [place] 09/16/21 at 1200, Medication, pantoprazole 40, changed from PPI to H2 antagonist famotidine 20 mg po daily per protocol for indication of stress ulcer prophylaxis. Frequency of famotidine decreased per renal protocol for CrCl=30-49 ml/min (CrCl=38.3 ml/min) Estimated Creatinine Clearance: 38.3 mL/min (by C-G formula based on SCr of 0.65 mg/dL)., Indications: Prevention of Stress Ulcer 1135 (Not Given - Provider: Dulce Hernandez RN - Reason: Patient/family refused) furosemide (LASIX) tablet 40 mg 40 mg, oral, Daily, First dose on [place] 09/16/22 at 1200 1135 (Not Given - Provider: Dulce Hernandez RN - Reason: Patient/family refused) HYDROcodone-acetaminophen (NORCO) 5-325 mg per tablet 1 tablet (COMPLETED) 1 tablet, oral, Once, On Mon09/15/21 at 2230, For 1 dose, Indications: Pain 2212 (Given - Provider: Marcia Brannon, XU) methylPREDNISolone sodium succinate (SOLU-medrol) preservative free injection 125 mg (COMPLETED) 125 mg, intravenous, Administer over 3 Minutes, Once, On Mon09/15/21 at 0454, For 1 dose 0502 (Given - Provider: Rufina Valladares, XU) polyethylene glycol (MIRALAX) packet 17 g 17 g, oral, Daily, First dose on Mon09/16/21 at 1200, Indications: constipation 1135 (Not Given - Provider: Dulce Hernandez RN - Reason: Patient/family refused) pramipexole (MIRAPEX) tablet 0.125 mg (COMPLETED) 0.125 mg, oral, Once, On Mon09/15/21 at 1800, For 1 dose 1721 (Given - Provider: Pam Alex RN) pramipexole (MIRAPEX) tablet 0.125 mg 0.125 mg, oral, 3 times daily, First dose on Mon09/15/21 at 2100, Indications: Idiopathic Parkinsonism, Restless Legs Syndrome 2049 (Given - Provider: Marcia Brannon RN) 0844 (Given - Provider: Dulce Hernandez RN) senna-docusate (PERICOLACE) 8.6-50 mg per tablet 1 tablet 1 tablet, oral, Daily, First dose on Mon09/16/21 at 1200 1135 (Not Given - Provider: Dulce Hernandez RN - Reason: Patient/family refused) spironolactone (ALDACTONE) split tablet 12.5 mg 12.5 mg, oral, Daily, First dose on Mon09/16/21 at 1200 1135 (Not Given - Provider: Dulce Hernandez RN - Reason: Patient/family refused) traMADoL (ULTRAM) tablet 25 mg 25 mg, oral, 2 times daily, First dose on Mon09/15/21 at 2100 2049 (Given - Provider: Marcia Brannon, XU) 0844 (Not Given - Provider: Dulce Hernandez RN - Reason: Patient/family refused) Continuous Medication Order 09/14/2021 09/15/2021 09/16/2021 sodium chloride 0.9% infusion 100 mL/hr, intravenous, Continuous, Starting on Mon09/15/21 at 1415 1429 (New Bag - Provider: Pam Alex RN) 0151 (New Bag - Provider: Marcia Brannon RN)1759 (Due: Stopped) PRN Medication Order 09/14/2021 09/15/2021 09/16/2021 acetaminophen (TYLENOL) tablet 650 mg 650 mg, oral, Every 6 hours PRN, 1st line for pain, Starting on Mon09/15/21 at 1535 1705 (Given - Provider: Radha Alex RN) bisacodyl EC (DULCOLAX EC) tablet 10 mg 10 mg, oral, Daily PRN, constipation, If no results 24 hours after milk of magnesia, Starting on Mon09/15/21 at 1535, Do not crush, chew, cut, dissolve, open or otherwise manipulate tablet/capsule. magnesium hydroxide (MILK OF MAGNESIA) 80 mg/mL (33.3 mg/mL as elemental magnesium) oral suspension 30 mL 30 mL, oral, Daily PRN, constipation, Starting on Mon09/15/21 at 1535 mineral oil (FLEET MINERAL OIL) enema 1 enema 1 enema, rectal, Daily PRN, constipation, if no results 24 hours after bisacodyl, Starting on Mon09/15/21 at 1535, Indications: constipation ondansetron (ZOFRAN) injection 4 mg 4 mg, intravenous, Administer over 2 Minutes, Every 4 hours PRN, nausea, vomiting, Starting on Mon09/15/21 at 1535 ondansetron (ZOFRAN) tablet 4 mg 4 mg, oral, Every 4 hours PRN, nausea, vomiting, Starting on Mon09/15/21 at 1535 propranoloL (INDERAL) tablet 20 mg 20 mg, oral, 2 times daily PRN, Tremor, Starting on [place] 09/16/21 at 1039 documented in this encounter Orders Medications Ordered That Alhaji ht Not Have Been Administered Count Last Ordered Date First Ordered Date apixaban (ELIQUIS) tablet 5 mg 1 09/16/2021 cholecalciferol (VITAMIN D-3 ) tablet 2,000 Units 1 09/16/2021 enoxaparin (LOVENOX) syringe 40 mg 1 2021 famotidine (PEPCID) tablet 20 mg 1 09/17/19 furosemide (LASIX) tablet [address] (PROTONIX) e xtended release tablet 20 mg 1 09/16/2021 polyethylene glycol (MIRALAX) packet 17 g 1 09/16/2021 propranoloL (INDERAL) tablet 20 mg 1 2021 senna-docusate (PERICOLACE) 8.6-50 mg per tablet 1 tablet 1 09/16/2021 spironolactone (ALDACTONE) s plit tablet 12.5 mg 1 09/16/2021 bisacodyl EC (DULCOLAX EC) tablet 10 mg 1 0 09/15/2021 magnesium hydroxide (MILK OF MAGNESIA) 80 mg/mL (33.3 mg/mL as elemental magnesium) oral suspension 30 mL 1 09/15/2021 mineral oil (FLEET MINERAL O [place]) enema 1 enema 1 09/15/2021 ondansetron (ZOFRAN) injection 4 mg 1 09/15 ondansetron (ZOFRAN) tablet 4 mg 1 09/16/19 22 Diet Count Last Ordered Date First Orde red Date ADULT DISCHARGE DIET 1 09/16/2021 Nursing Count Last Ordered Date First Orde red Date FOLLOW UP WITH ESTABLISHED PROVIDER 1 09/16 WEIGH PATIENT 1 09/15/2021 CORE MEASURES Count Last Ordered Date First Ord ered Date REASON FOR NO VTE PROPHYLAXIS AT ADMISSION 1 09/15/2021 ADT Patient Update Count Last Ordered Date Firs t Ordered Date ED IP DECISION TO ADMIT 2 09/15/2021 documented in this encounter Care Teams Diversity Manager Relationship Specialty Start Date End Date Pepper Morgan MD PCP - General 09/16/16 Hank Garibay MD [address] [place] [address] Surgeon Orthopedic Surgery 03/27/17 Jacky Murry MD [address] [place] [address] Ophthalmology 03/27/17 Puma Mckenzie MD [address] [place] [address] Surgeon Orthopedic Surgery 07/11/19 documented as of this encounter
--- OUTSIDE RECORDS SUMMARY | 2024-06-18 18:59 | XMS_ITS | Encounter Summary ---
Author Organization [facility] Healthcare Address [address] [place] [address] Care Team Providers Care Assembler [employer] Name Role Phone Pepper Morgan MD Primary Care Provider + [phone] Hank Garibay MD Unavailable [phone] Jacky Murry MD Unavailable [phone] Puma Mckenzie MD Unavailable [phone] Encounter Details Date Type Department Care Team (Late st Contact Info) Description 06/17/2021 9:50 AM [facility] [employer] [facility] Lab [address] [address] Atrial fibrillation, unspecified type (HCC); Medication monitoring [...] on file Legal Sex Female 4:33 AM [employer] Gender Identity Not on file Sexual Orientation Not on file Occupation Industry Job Start Date Job End Date retired Not on file Not on file Not on file documented as of this encounter Plan of Treatment Not on file documented as of this encounter Procedures Procedure Name Priority Date/Time Associated Diagnosis Comments EGFR Routine 06/16/2021 10:42 AM [employer] Atrial fibrillation, unspecified type (HCC) Medication monitoring encounter PRO B-TYPE NATRIURETIC PEPTIDE Routine 06/16/2021 10:42 AM [employer] Atrial fibrillation, unspecified type (HCC) Medication monitoring encounter BASIC METABOLIC PANEL Routine 06/16/2021 10:42 AM [employer] Atrial fibrillation, unspecified type (HCC) Medication monitoring encounter documented in this encounter Results * eGFR (06/16/2021 10: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 73 m2 [facility] Comment: Interpretive [...] interpretive data was last reviewed 2021. Blood 06/16/2021 10:4 2 AM [employer]ING [employer] MEMBER 06/17/2021 11:17 AM CLE[employer]BER us Pepper Morgan MD LAB BLOOD ORDERABLES Final Result Performing Organization Address City/State/ZIP Co or Phone Number [facility] [id number] [place] [address] * (ABNORMAL) Pro B-type natriuretic peptide (06/16/2021 10:42 AM CLE[employer]ING [employer] MEMBER) NT-proBNP 2,016(H) <=450 pg/mL [facility] Comment: Interpretive Comments: [...] Interpretive Data Last Revised Date: 2018. Blood 06/16/2021 10:4 2 AM [employer] 06/17/2021 10:54 AM CLE[employer]BER Pepper Morgan MD LAB BLOOD ORDERABLES Final Result [facility] [address] Department [place] [address] * (ABNORMAL) Basic metabolic panel (06/16/2021 10:42 AM CLE[employer]ING [employer] MEMBER) Sodium 138 135 - 145 mmol/L [facility] Potassium, pl 5.0(H) 3.3 - 4.9 mmol/L [facility] Chloride 97 97 - 110 mmol/L [facility] CO2 30 22 - 32 mmol/L [facility] Anion gap 11 2 - 15 mmol/L [facility] BUN 18 8 - 25 mg/dL [facility] Creatinine 0.70 0.60 - 1.10 mg/dL [facility] Glucose 78 70 - 199 mg/dL [facility] Comment: [...] interpretive data was last revised 2017. Calcium 9.8 8.5 - 10.3 mg/dL [facility] Blood 06/16/2021 10:4 2 AM [employer] 06/17/2021 10:54 AM [employer]BER Pepper Morgan MD LAB BLOOD ORDERABLES Final Result [facility] [address] [address] Department [place] [address] documented in this encounter Visit Diagnoses Diagnosis Atrial fibrillation, unspecified type (HCC) Medication monitoring encounter Encounter for therapeutic drug monitoring documented in this encounter Care Teams As[employer]er [employer] Relationship Specialty Start Date End Date Pepper Morgan MD PCP - General 09/16/16 Hank Garibay MD [address] [place] [address] Surgeon Orthopedic Surgery 03/27/17 Jacky Murry MD [address] [place] [address] Ophthalmology 03/27/17 Puma Mckenzie MD [address] [place] [address] Surgeon Orthopedic Surgery 07/11/19 documented as of this encounter
--- OUTSIDE RECORDS SUMMARY | 2024-06-18 18:59 | XMS_ITS | Encounter Summary ---
Author Organization [facility] Address [address] [place] [address] Care Team Providers Care Junior Mechanical Engineer Name Role Phone Pepper Morgan MD Primary Care Provider + [phone] Hank Garibay MD Unavailable [phone] Jacky Murry MD Unavailable [phone] Puma Mckenzie MD Unavailable [phone] Encounter Details Date Type Department Care Team (Late st Contact Info) Description 06/29/2021 9:48 AM SENIOR QUALITY METHODS SPECIALIST - 06/29/2021 10:44 AM [facility] Emergency [facility] Emergency Department [address] [place] [address] Fartun Kee MD [address] [place], [place] [address], [place] [address] Angioedema, initial encounter (Primary Dx) Discharge Disposition: [...] file Legal Sex Female 4:33 AM SENIOR QUALITY METHODS SPECIALIST Gender Identity Not on file Sexual Orientation Not on file Occupation Industry Job Start Date Job End Date retired Not on file Not on file Not on file documented as of this encounter Last Filed Vital Signs Vital Sign Reading Time Taken Comments Blood Pressure 159/94 06/29/2021 9:45 AM SENIOR QUALITY METHODS SPECIALIST Pulse 93 06/29/2021 9:45 AM SENIOR QUALITY METHODS SPECIALIST Temperature 36.4 ??C (97.5 ??F) 06/29/2021 9:45 AM CS T Respiratory Rate 20 06/29/2021 9:45 AM SENIOR QUALITY METHODS SPECIALIST Oxygen Saturation 97% 06/29/2021 9:45 AM SENIOR QUALITY METHODS SPECIALIST Inhaled Oxygen Concentration - - Weight 81.6 kg (180 lb) 06/29/2021 9:45 AM SENIOR QUALITY METHODS SPECIALIST Height 152.4 cm (5') 06/29/2021 9:45 AM SENIOR QUALITY METHODS SPECIALIST Body Mass Index 35.15 06/29/2021 9:45 AM SENIOR QUALITY METHODS SPECIALIST documented in this encounter Discharge Diagnoses Diagnosis Angioneurotic edema, initial encounter - ANGIONEUROTIC EDEMA, INITIAL ENCOUNTER Exposure to other specified factors, initial encounter - EXPOSURE TO OTHER SPECIFIED FACTORS, INITIAL ENCOUNTER Activity, unspecified - ACTIVITY, UNSPECIFIED Unspecified place or not applicable - UNSPECIFIED PLACE OR NOT APPLICABLE Unspecified external cause status - UNSPECIFIED EXTERNAL CAUSE STATUS Essential (primary) hypertension - ESSENTIAL (PRIMARY) HYPERTENSION Unspecified essential hypertension Restless legs syndrome - RESTLESS LEGS SYNDROME Restless legs syndrome (RLS) Gastro-esophageal reflux disease without esophagitis - GASTRO-ESOPHAGEAL REFLUX DISEASE WITHOUT ESOPHAGITIS Obesity, unspecified - OBESITY, UNSPECIFIED Personal history of malignant melanoma of skin - PERSONAL HISTORY OF MALIGNANT MELANOMA OF SKIN Acquired absence of other specified parts of digestive tract - ACQUIRED ABSENCE OF OTHER SPECIFIED PARTS OF DIGESTIVE TRACT Bariatric surgery status - BARIATRIC SURGERY STATUS Presence of right artificial hip joint - PRESENCE OF RIGHT ARTIFICIAL HIP JOINT Presence of left artificial knee joint - PRESENCE OF LEFT ARTIFICIAL KNEE JOINT Personal history of nicotine dependence - PERSONAL HISTORY OF NICOTINE DEPENDENCE documented in this encounter Discharge Instructions * Attachments The following attachments cannot be sent through Care Everywhere. * Angioedema (AfterCare(R) Instructions(ER/ED)) ([place]) documented in this encounter Medications at Time [...] documented in this encounter ED Notes * Fartun Kee MD - 06/29/2021 10:15 AM CST HPI No chief complaint on file. Tess is an 85-year-old female with a past medical history of atrial fibrillation, hypertension, essential tremor, angioedema, who comes to the emergency department today for left-sided ear pain andswelling of the tongue on the left side. Patient states she has not been taking any medication today and woke up with left-sided ear pain and swelling of the tongue on the left. She contacted her primary care physician who Center he. She denies shortness of breath or other concerns at this time. Patient cannot take Benadryl since it aggravates her restless leg syndrome. Patient History: Patient Active Problem List Diagnosis Date Noted ??? Atrial fibrillation (CMS/HCC) ([facility]) 04/21/2021 ??? Constipation due to opioid therapy 11/18/2019 ??? Bariatric surgery status 04/04/2017 ??? Insomnia, persistent 04/04/2017 ??? Chronic pain disorder 04/04/2017 ??? Knee joint replacement status, bilateral 04/04/2017 ??? History of malignant melanoma 02/10/2015 ??? 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 Chronic GERD 11/02/2013 ??? 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 11/02/2013 ??? Restless legs syndrome 11/02/2013 Past Medical History: Diagnosis Date ??? Arthritis of ankle ??? Basal cell [...] Comments: APO 01/13/2014 - ??? Menopause ??? Obesity ??? Restless leg ??? Right carpal tunnel [...] RIGHT Right 04/08/2019 ??? HAND SURGERY 1976 hand surgery ??? HERNIA REPAIR Hernia repair ??? KNEE ARTHROSCOPY 2003 Arthroscopy knee ??? KNEE ARTHROSCOPY Arthroscopy knee ??? OTHER SURGICAL HISTORY 1991 strangulated hernia: hernia repair ??? OTHER SURGICAL HISTORY 2002 Cancer, basal Cell: resection with skin graft ??? REPLACEMENT TOTAL KNEE Left 02/07/2017 Dr. Meier ??? TOTAL HIP ARTHROPLASTY Right 06/2019 The successful right hip replacement Dr. Mckenzie Family History Problem Relation Age of Onset ??? Cancer Other Family history of Cancer, unknown; ??? Arthritis Other Family history of Arthritis; ??? Abdominal Aortic Aneurysm Father ??? COPD Father Social History Tobacco Use ??? Smoking status: Former Smoker Quit date: 1991 Years since quittin.0 ??? Smokeless tobacco: Never Used Substance Use Topics ??? Alcohol use: Not Currently ??? Drug use: Never Social History Social History Narrative ??? Not on file Review of Systems Review of Systems Constitutional: Negative. Negative for activity change, appetite change, chills, diaphoresis, fatigue and fever. HENT: Positive for ear pain (Left). Negative for congestion, drooling, rhinorrhea, sore throat and trouble swallowing. Tongue swelling left Eyes: Negative. Negative for photophobia, redness and visual disturbance. Respiratory: Negative. Negative for cough, chest tightness and shortness of breath. Cardiovascular: Negative. Negative for chest pain, palpitations and leg swelling. Gastrointestinal: Negative. Negative for abdominal pain, anal bleeding, blood in stool, constipation, diarrhea, nausea and vomiting. Endocrine: Negative. Genitourinary: Negative. Negative for decreased urine volume, difficulty urinating, dysuria, frequency, hematuria and urgency. Musculoskeletal: Negative. Negative for arthralgias and myalgias. Skin: Negative. Negative for rash and wound. Allergic/Immunologic: Negative for immunocompromised state. Neurological: Negative. Negative for dizziness, weakness and headaches. Hematological: Negative. Does not bruise/bleed easily. Psychiatric/Behavioral: Negative. Negative for confusion. All other systems reviewed and are negative. Physical Exam ED Triage Vitals [06/29/21 0945] Temp Pulse Resp BP SpO2 36.4 ??C (97.5 ??F) 93 20 159/94 97 % Temp src Heart Rate Source Patient Position BP Location FiO2 (%) -- -- -- -- -- Physical Exam Vitals and nursing note reviewed. Constitutional: General: She is not in acute distress. Appearance: She is well-developed. She is not ill-appearing, toxic-appearing or diaphoretic. HENT: Head: Normocephalic and atraumatic. Left Ear: Tympanic membrane, ear canal and external ear normal. Ears: Comments: Partially obstructed by cerumen Nose: No congestion or rhinorrhea. Comments: Mild swelling of tongue on left Mouth/Throat: Mouth: Mucous membranes are moist. Eyes: General: No scleral icterus. Extraocular Movements: Extraocular movements intact. Conjunctiva/sclera: Conjunctivae normal. Pupils: Pupils are equal, round, and reactive to light. Neck: Thyroid: No thyromegaly. Vascular: No JVD. Trachea: No tracheal deviation. Cardiovascular: Rate and Rhythm: Normal rate. Pulmonary: Effort: Pulmonary effort is normal. No respiratory distress. Abdominal: General: Abdomen is flat. Palpations: Abdomen is soft. Musculoskeletal: General: Normal range of motion. Cervical back: Normal range of motion and neck supple. Skin: General: Skin is warm and dry. Neurological: General: No focal deficit present. Mental Status: She is alert and oriented to person, place, and time. Mental status is at baseline. Motor: No abnormal muscle tone. Psychiatric: Mood and Affect: Mood normal. Behavior: Behavior normal. Thought Content: Thought content normal. Judgment: Judgment normal. Discussed causes as well as treatment plan, follow-up with PCP calling them today to go over her medication monitoring symptoms if they worsen return to the emergency department patient agrees with treatment plan and disposition. MDM MDM Final diagnoses: Angioedema, initial encounter There may be grammatical errors in this note due to use of voice recognition software. DISPOSITION:DISCHARGED Fartun Kee MD 06/29/21 1020 OR QUALITY METHODS SPECIALIST * Jacqueline Martinez RN - 06/29/2021 9:42 AM CST Patient arrives to ED via POV by herself with c/o tongue swollen on the left side and an ear ache on the left since 0400 this morning. Patient states that she did not eat anything out of her norm except dates but she ate those at 1830. Patient denies any difficulty swallowing. OR QUALITY METHODS SPECIALIST OR QUALITY METHODS SPECIALIST documented in this encounter Plan of Treatment Not on file documented as of this encounter Visit Diagnoses Diagnosis Angioedema, initial encounter- Primary documented in this encounter Care Teams Junior Mechanical Engineer Relationship Specialty Start Date End Date Pepper Morgan MD PCP - General 09/16/16 Hank Garibay MD [address] [facility] [address] [place] [address] Surgeon Orthopedic Surgery 03/27/17 Jacky Murry MD [address] [facility] [address] [address] [place] [address] Ophthalmology 03/27/17 Puma Mckenzie MD [address] [facility] [address] [place] [address] Surgeon Orthopedic Surgery 07/11/19 documented as of this encounter
--- OUTSIDE RECORDS SUMMARY | 2024-06-18 18:59 | XMS_ITS | Encounter Summary ---
Author Organization [facility] Address [address] [place] [address] Care Team Providers Care Parts Finisher Name Role Phone Pepper Morgan MD Primary Care Provider + [phone] Hank Garibay MD Unavailable [phone] Jacky Murry MD Unavailable [phone] Puma Mckenzie MD Unavailable [phone] Encounter Details Date Type Department Care Team (Late st Contact Info) Description 08/26/[address] [facility] Orthopedics and Sports Medicine [address] [place] [address] [address] [place] [address] Puma Mckenzie MD [address] [place] [address] [address] [place] [address] Social History Tobacco Use Types Packs/Day Years [...] on file Legal Sex Female 4:33 AM ICT EDUCATOR Gender Identity Not on file Sexual Orientation Not on file Occupation Industry Job Start Date Job End Date retired Not on file Not on file Not on file documented as of this encounter Miscellaneous Notes * Telephone Encounter - Yenifer Alvarado - 08/26/2021 1:29 PM CST Noted EDUCATOR * Telephone Encounter - Susy Hummel PA - 08/26/2021 1:18 PM ICT EDUCATOR I called Tess and informed her that her labs were within normal limits. EDUCATOR * Telephone Encounter - Yenifer Alvarado - 08/26/2021 12:57 PM CST Pt called wanting to know the results of her labs. She can be reached [phone] EDUCATOR documented in this encounter Plan of Treatment Not on file documented as of this encounter Visit Diagnoses Not on filedocumented in this encounter Care Teams Parts Finisher Relationship Specialty Start Date End Date Pepper Morgan MD PCP - General 09/16/16 Hank Garibay MD [address] [facility] [place] [address] Surgeon Orthopedic Surgery 03/27/17 Jacky Murry MD [address] [facility] [place] [address] Ophthalmology 03/27/17 Puma Mckenzie MD [address] [facility] [place] [address] Surgeon Orthopedic Surgery 07/11/19 documented as of this encounter
--- OUTSIDE RECORDS SUMMARY | 2024-06-18 18:59 | XMS_ITS | Encounter Summary ---
Author Organization [facility] Address [address] [address] Care Team Providers Care Line Production Cook Name Role Phone Pepper Morgan MD Primary Care Provider + [phone] Hank Garibay MD Unavailable [phone] Jacky Murry MD Unavailable [phone] Puma Mckenzie MD Unavailable [phone] Encounter Details Date Type Department Care Team (Late st Contact Info) Description 05/31/2021 4:30 PM BARREL TESTER Lab [facility] [address] [place] [phone] 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 Social History Tobacco Use Types [...] file Legal Sex Female 4:33 AM BARREL TESTER Gender Identity Not on file Sexual Orientation Not on file Occupation Industry Job Start Date Job End Date retired Not on file Not on file Not on file documented as of this encounter Plan of Treatment Not on file documented as of this encounter Visit Diagnoses Diagnosis 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 Essential hypertension, benign documented in this encounter Care Teams Line Production Cook Relationship Specialty Start Date End Date Pepper Morgan MD PCP - General 09/16/16 Hank Garibay MD [address] [facility] [address] [place] [address] Surgeon Orthopedic Surgery 03/27/17 Jacky Murry MD [address] [facility] [address] [place] [address] Ophthalmology 03/27/17 Puma Mckenzie MD [address] [facility] [address] [place] [address] Surgeon Orthopedic Surgery 07/11/19 documented as of this encounter
--- OUTSIDE RECORDS SUMMARY | 2024-06-18 18:59 | XMS_ITS | Encounter Summary ---
Author Organization [facility] Address [address] [facility] [address] [place] [address] Care Team Providers Care Airways Control Specialist Name Role Phone Pepper Morgan MD Primary Care Provider Hank Garibay MD Unavailable [phone] Jacky Murry MD Unavailable [phone] Puma Mckenzie MD Unavailable [phone] Reason for Visit * Reason Comments Facial Swelling Encounter Details Date Type Department Care Team (Latest Contact Info) Description 08/11/2021 9:00 AM ASSEMBLER CONVERTIBLE TOP Office Visit [facility] [address] [place] [phone] Jacqueline Fuller, RESTAURANT HOST [address] [place] [address] Left facial swelling (Primary Dx) Social History Tobacco Use [...] file Legal Sex Female 4:33 AM ASSEMBLER CONVERTIBLE TOP Gender Identity Not on file Sexual Orientation Not on file Occupation Industry Job Start Date Job End Date retired Not on file Not on file Not on file documented as of this encounter Last Filed Vital Signs Vital Sign Reading Time Taken Comments Blood Pressure 122/80 08/11/2021 8:56 AM ASSEMBLER CONVERTIBLE TOP Pulse 83 08/11/2021 8:56 AM ASSEMBLER CONVERTIBLE TOP Temperature 36.4 ??C (97.5 ??F) 08/11/2021 8:56 AM CS T Respiratory Rate 20 08/11/2021 8:56 AM ASSEMBLER CONVERTIBLE TOP Oxygen Saturation 95% 08/11/2021 8:56 AM ASSEMBLER CONVERTIBLE TOP Inhaled Oxygen Concentration - - Weight 86.2 kg (190 lb) 08/11/2021 8:56 AM ASSEMBLER CONVERTIBLE TOP Height 152.4 cm (5') 08/11/2021 8:56 AM ASSEMBLER CONVERTIBLE TOP Body Mass Index 37.11 08/11/2021 8:56 AM ASSEMBLER CONVERTIBLE TOP documented in this encounter Patient Instructions * Patient Instructions* Jacqueline Fuller NP - 08/11/2021 9:00 AM ASSEMBLER CONVERTIBLE TOP Orders for AMS STAFF to arrange No new labs or orders Orders for Tess Benedict to arrange Please avoiding lying on the left side of your face Please remain well hydrated Please hold your felodipine at this time Monitor and record your blood pressure If your blood pressure starts running higher over 140/90 consistently please call If you have increasing swelling or trouble go to ER Return for Next scheduled follow up. No orders of the defined types were placed in this encounter. A brief review of all your problems, medications, and orders from today ICD-9-CM ICD-10-CM 1. Left facial swelling 784.2 R22.0 PLEASE BRING IN ALL PILL BOTTLES TO EVERY OFFICE VISIT, THIS IS ESSENTIAL FOR ACCURATE REFILLS AND MAINTAINING AN ACCURATE MEDICATION LIST. MBLER CONVERTIBLE TOP MBLER CONVERTIBLE TOP documented in this encounter Progress Notes * Jacqueline Fuller NP - 08/11/2021 9:00 AM CST Subjective/Objective Patient ID: Tess Benedict is a 85 y.o. female. Chief Complaint Facial Swelling HPI She reports have this episodes where she wake with her lips being swelling only on the left side ofher face She says episodes come and go and have been ongoing for the last year She was in the ER earlier this year with a similar episode She will put ice in her mouth and that helps She reports this time she had a in the family this recent time and swelling started on the left side of the face. She did not take her blood thinner, but took some aleve instead to help with swelling.She used ice on her face which helped some. She admits to sleeping on her left side of the face and wearing dentures at night sometimes with sleep. Review of Systems Constitutional: Negative for chills and fever. HENT: Positive for ear pain (left ear pressure and fullness ). Negative for congestion, ear discharge, postnasal drip, sinus pressure, sinus pain and sore throat. Eyes: Negative for pain and redness. Respiratory: Negative for chest tightness and shortness of breath. Cardiovascular: Negative for chest pain and palpitations. Gastrointestinal: Negative for nausea and vomiting. Skin: Positive for rash. Neurological: Negative for dizziness and light-headedness. Physical Exam Vitals and nursing note reviewed. Constitutional: Appearance: Normal appearance. HENT: Head: Normocephalic and atraumatic. Right Ear: Tympanic membrane, ear canal and external ear normal. Left Ear: There is impacted cerumen. Nose: Nose normal. Mouth/Throat: Mouth: Mucous membranes are moist. Pharynx: No posterior oropharyngeal erythema. Comments: Mild swelling of the left cheek Cardiovascular: Rate and Rhythm: Normal rate. Rhythm irregular. Pulmonary: Effort: Pulmonary effort is normal. Breath sounds: Normal breath sounds. Skin: General: Skin is warm and dry. Neurological: General: No focal deficit present. Mental Status: She is alert and oriented to person, place, and time. Gait: Gait abnormal (uses walker for ambulation ). Psychiatric: Mood and Affect: Mood normal. Behavior: Behavior normal. Assessment/Plan Diagnoses and all orders for this visit: Left facial swelling (R22.0) (Primary) Assessment & Plan: Patient presents with recurrent issues of left sided facial swelling. She states she will wake in the morning and the left side of the face and inside the mouth will feel swollen. She will use ice which helps with swelling some. There is concern that this is a dependent edema as she admits she doessleep on there left side. She denies any associated SOB and trouble swallowing with episodes. She bay s a history of angioedema to lisinopril in the past, but she is no longer taking that medication orany other acei or arb. She has a [...] consider checking C1 esterase and referral to head waiter/waitress banquet. However, patient states she has done this in the past and w/u was benign. She willcall or return sooner if needed. Cosigned by Pepper Morgan MD at 08/11/2021 10:29 PM ASSEMBLER CONVERTIBLE TOP MBLER CONVERTIBLE TOP MBLER CONVERTIBLE TOP documented in this encounter Miscellaneous Notes * Assessment & Plan Note - Jacqueline Fuller NP - 08/11/2021 9:35 AM ASSEMBLER CONVERTIBLE TOP Associated Problem(s): Left facial swelling (Resolved 01/24/2022) Patient presents with recurrent issues of left sided facial swelling. She states she will wake in the morning and the left side of the face and inside the mouth will feel swollen. She will use ice which helps with swelling some. There is concern that this is a dependent edema as she admits she doessleep on there left side. She denies any associated SOB and trouble swallowing with episodes. She bay s a history of angioedema to lisinopril in the past, but she is no longer taking that medication orany other acei or arb. She has a [...] consider checking C1 esterase and referral to head waiter/waitress banquet. However, patient states she has done this in the past and w/u was benign. She willcall or return sooner if needed. MBLER CONVERTIBLE TOP MBLER CONVERTIBLE TOP documented in this encounter Plan of Treatment Not on file documented as of this encounter Visit Diagnoses Diagnosis Left facial swelling- Primary Swelling, mass, or lump in head and neck documented in this encounter Care Teams Airways Control Specialist Relationship Specialty Start Date End Date Pepper Morgan MD PCP - General 09/16/16 Hank Garibay MD [address] [facility] [address] [place] [address] Surgeon Orthopedic Surgery 03/27/17 Jacky Murry MD [address] [facility] [address] [place] [address] Ophthalmology 03/27/17 Puma Mckenzie MD [address] [facility] [address] [place] [address] Surgeon Orthopedic Surgery 07/11/19 documented as of this encounter
--- OUTSIDE RECORDS SUMMARY | 2024-06-18 18:59 | XMS_ITS | Encounter Summary ---
Author Organization [facility] Address [address] [facility] [facility] [address] [place] [address] Care Team Providers Care Straw Hat Brusher Name Role Phone Pepper Morgan MD Primary Care Provider [phone] Hank Garibay MD Unavailable [phone] Jacky Murry MD Unavailable [phone] Puma Mckenzie MD Unavailable [phone] Encounter Details Date Type Department Care Team (Late st Contact Info) Description 08/10/2021 Telephone [facility] [address] [place] [phone] Pepper Morgan MD [address] [place] [address] Social History Tobacco Use Types Packs/Day Years [...] on file Legal Sex Female 4:33 AM HOME ADVISOR Gender Identity Not on file Sexual Orientation Not on file Occupation Industry Job Start Date Job End Date retired Not on file Not on file Not on file documented as of this encounter Miscellaneous Notes * Telephone Encounter - Jacqueline Fuller NP - 08/10/2021 10:50 AM HOME ADVISOR Noted thank you ADVISOR * Telephone Encounter - Yvette Zapata RN - 08/10/2021 10:40 AM CST Pt was treated with a Medrol dosepak in June for the same thing . She cancelled the follow up appt. Now c/o cheek et lip swelling, started yesterday. Its not worsening , she denies trouble breathingor swallowing. Its not as bad this time, but she thinks she needs steroid again. Consulted with Jacqueline, she should be seen. Pt aware et agrees, appt scheduled for tomorrow at 9am. ADVISOR * Telephone Encounter - Eri Owens - 08/10/2021 8:17 AM CST [id number] patient Pt states the left side of her face is swollen again and wants to know if would call in a steroid. nash pearson ADVISOR documented in this encounter Plan of Treatment Not on file documented as of this encounter Visit Diagnoses Not on filedocumented in this encounter Care Teams Straw Hat Brusher Relationship Specialty Start Date End Date Pepper Morgan MD PCP - General 09/16/16 Hank Garibay MD [address] [place] [address] [address] [address] Surgeon Orthopedic Surgery 03/27/17 Jacky Murry MD [address] [facility] [address] [place] [address] Ophthalmology 03/27/17 Puma Mckenzie MD [address] [facility] [address] [place] [address] Surgeon Orthopedic Surgery 07/11/19 documented as of this encounter
--- OUTSIDE RECORDS SUMMARY | 2024-06-18 18:59 | XMS_ITS | Encounter Summary ---
Author Organization [facility] Address [address] [address] Care Team Providers Care Varnish Finisher Name Role Phone Pepper Morgan MD Primary Care Provider [phone] Hank Garibay MD Unavailable [phone] Jacky Murry MD Unavailable [phone] Mary Mckenzie MD Unavailable [phone] Reason for Referral * Consultation (Routine) - Closed Specialty Diagnoses / Procedures Referred By Contac t Referred To Contact Orthopedic Surgery Diagnoses Hip arthritis Pepper Morgan MD Phone: tel: fax: Mary Mckenzie MD Phone: tel: Referral ID Status Reason Start Date Expiration Date V isits Requested Visits Authorized [id number] Closed Specialty Services Required 06/09/2021 07/09/2022 12 12 Question Answer Please select the performing region: [facility] [[id number]] Please select the performing department: [facility] [[id number]] To provider: MARY MCKENZIE [[id number]] # of visits: 12 June 2019 to evaluate for left hip replacement surgery when she is on her new insurance Please contact patient for scheduling, thank you! PLANNER Reason for Visit * Reason Comments Annual Exam Encounter Details Date Type Department Care Team (Late st Contact Info) Description 05/31/2021 2:20 PM LOAD PLANNER Office Visit [facility] [address] [place] [address] Pepper Morgan MD [address] [place] [address] Annual physical exam (Primary Dx); Atrial fibrillation, unspecified type (HCC); Parkinson's disease (tremor, stiffness, slow motion, unstable posture) (CMS/HCC) (HCC); Hereditary essential tremor; Restless legs syndrome; 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; Chronic GERD; Preoperative evaluation of a medical condition to rule out surgical contraindications (TAR required); Hip arthritis; Spinal stenosis of lumbar region with neurogenic claudication; Cervical radiculopathy; Medication monitoring encounter Social History Tobacco Use [...] on file Legal Sex Female 4:33 AM LOAD PLANNER Gender Identity Not on file Sexual Orientation Not on file Occupation Industry Job Start Date Job End Date retired Not on file Not on file Not on file documented as of this encounter Last Filed Vital Signs Vital Sign Reading Time Taken Comments Blood Pressure 156/80 05/31/2021 2:43 PM LOAD PLANNER Pulse 81 05/31/2021 2:43 PM LOAD PLANNER Temperature 36.4 ??C (97.5 ??F) 05/31/2021 2:43 PM CS T Respiratory Rate 12 05/31/2021 2:43 PM LOAD PLANNER Oxygen Saturation 99% 05/31/2021 2:43 PM LOAD PLANNER Inhaled Oxygen Concentration - - Weight 84.8 kg (187 lb) 05/31/2021 2:43 PM LOAD PLANNER Height 161.3 cm (5' 3.5 ) 05/31/2021 2:43 PM LOAD PLANNER Body Mass Index 32.61 05/31/2021 2:43 PM LOAD PLANNER documented in this encounter Patient Instructions * Patient Instructions* Pepper Morgan MD - 05/31/2021 2:20 PM LOAD PLANNER Images from the original note were not included. ORDERS FOR [facility] STAFF TO ARRANGE 1. Refer Dr. Deshpande evaluate for tremor, [...] basic panel = atrial fibrillation, medication monitor ORDERS FOR Tess Eldridge Marichuy TO ARRANGE 1. Immunization recommendation Tdap at the pharmacy before the end of the year Please get us information on the 3rd COVID shot 2. Medication change No medication changes are required, you may take medicines as prescribed especially the pramipexoleto keep the restless leg under control 3. Severe left hip Refer to Dr. [...] to be ready for the June surgery Patient Care Team: Pepper Morgan MD as PCP - General [facility], Hank Mccauley MD as Surgeon (Orthopedic Surgery) Jacky Murry MD (Ophthalmology) Mary Mckenzie MD as Surgeon (Orthopedic Surgery) Return in about 3 months (around 08/29/2021). Orders Placed This Encounter Procedures ??? Pro B-type natriuretic peptide ??? Basic metabolic panel ??? CBC with auto differential A brief review of all your problems, medications, and orders from today ICD-9-CM ICD-10-CM 1. Annual physical exam V70.0 Z00.00 2. Atrial fibrillation, unspecified type (HCC) 427.31 I48.91 apixaban (ELIQUIS) 5 mg tablet Pro B-type natriuretic peptide Basic metabolic panel CBC with auto differential 3. Parkinson's disease (tremor, stiffness, slow motion, unstable posture) (CMS/HCC) (HCC) 332.0 [id number] (MIRAPEX) 0.125 mg tablet 4. Hereditary essential tremor 333.1 G25.0 propranoloL (INDERAL) 20 mg tablet 5. Restless legs syndrome 333.94 G25.81 pramipexole (MIRAPEX) 0.125 mg tablet 6. 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 401.1 I10 spironolactone (Aldactone) 25 mg tablet felodipine (PLENDIL) 5 mg 24 hr tablet 7. Chronic GERD 530.[address] (PROTONIX) 20 mg EC tablet 8. Preoperative evaluation of a medical condition to rule out surgical contraindications (TAR required) V72.83 Z01.818 9. Hip arthritis 716.95 M16.10 traMADoL (ULTRAM) 50 mg tablet 10. Spinal stenosis of lumbar region with neurogenic claudication 724.03 M48.062 traMADoL (ULTRAM) 50 mg tablet 11. Cervical radiculopathy 723.4 M54.12 traMADoL (ULTRAM) 50 mg tablet 12. Medication monitoring encounter V58.83 Z51.81 Pro B-type natriuretic peptide Basic metabolic panel CBC with auto differential For your records I have provided this immunization report Immunization History Administered Date(s) Administered ??? Influenza, Quadrivalent, High Dose, Preservative Free, Intrr 03/31/2020 ??? Influenza, Quadrivalent, Split, Intramuscular 03/28/2016, 04/04/2017 ??? Influenza, Split 05/18/2012 ??? Influenza, Trivalent, Adjuvanted, Intramuscular 04/17/2019 ??? Influenza, Trivalent, High Dose, Split, Preservative Free, Intramuscular 03/23/2015, 03/12/2018, 04/17/2019 ??? Influenza, Trivalent, Intramuscular 03/25/2014, 04/17/2015 ??? Influenza, Unspecified 03/13/2018, 03/19/2021 ??? Pfizer SARS-CoV-2 Vaccination (12+ yrs) 08/15/2020, 09/06/2020 ??? Pneumococcal Conjugate PCV 13 02/18/2015 ??? Pneumococcal Polysaccharide PPV23 05/17/2002, 04/26/2016 ??? Tdap 05/18/2011 Primary Pharmacy/DME suppliers: [id number] - [place] - [address] [address] [place] [address] PLEASE BRING IN ALL PILL BOTTLES TO EVERY OFFICE VISIT, THIS IS ESSENTIAL FOR ACCURATE REFILLS AND MAINTAINING AN ACCURATE MEDICATION LIST. PLEASE SIGN UP FOR Hear It First so that you may have access to your labs and chart documentation IF YOU HAVE TROUBLE WITH THIS PROCESS CALL [phone] These are the results of the heart test done in April to share with Dr. Mckenzie and her family EKG April 21, 2021 Rate controlled atrial fibrillation Echocardiogram normal LVEF 05/11/2021 Normal left ventricular systolic function with no [...] calcifications in ascending aorta with normal caliber. Electronically Signed By: Stalin Arauz MD 2021-05-11 12:26:05 LOAD PLANNER This is a copy of the letter to Dr. Mckenzie Dear Dr. Mckenzie, I had the opportunity to visit with our mutual patient today for her yearly physical Tess I Ashlymake. Over the past few months she developed rate controlled atrial fibrillation is now on Eliquis 5mg twice daily Her medical workup for the AFib is all in normal range. She does not require cardiac clearance before the upcoming plans for left hip replacement surgery. She does have restless leg, essential tremor, and mild case of Parkinson's they are all very well controlled on pramipexole and Inderal. Her family has requested a neurology preoperative consultationbefore having surgery with you in June. You should be hearing from Dr. Deshpande regarding his recommendations for preoperative clearance. As you may remember she has difficulty with anesthesia and would like to have something that does not make her nauseated. She got into trouble with spinal anesthesia as much as general. Looking for to all the help he can give her to get through this painful problem Thank you for your help with her care, you will be seeing her in June Pepper Morgan MD PLANNER PLANNER PLANNER PLANNER PLANNER PLANNER PLANNER PLANNER PLANNER PLANNER documented in this encounter Ordered Prescriptions Prescription Sig Dispense Quantity Refills Last Filled Start Date End Date traMADoL (ULTRAM) 50 mg tabletIndications: Spinal stenosis of lumbar region with neurogenic claudication,Cervi fernando radiculopathy,Hip arthritis Take 0.5-1 tablets (25-50 mg total) by mouth 2 (two) times a day 40 tablet 5 05/31/2021 2 pramipexole (MIRAPEX) 0.125 mg tabletIndications: Idiopathic Parkinsonism,Restl ess Legs Syndrome Take 1 tablet (0.125 mg total) by mouth 3 (three) times a day Take at 9:00 a.m., 3:00 p.m., 9:00 p.m. 270 tablet 1 05/31/[address] (PROTONIX) 20 mg EC tabletIndications: Chronic GERD Take 1 tablet (20 mg total) by mouth daily With the largest meal 90 tablet 1 05/31/2021 2 felodipine (PLENDIL) 5 mg 24 hr tabletIndications: 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 Take 1 tablet (5 mg total) by mouth daily 90 tablet 1 05/31/2021 2 spironolactone (Aldactone) 25 mg tabletIndications: 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 Take 1 tablet (25 mg total) by mouth daily 90 tablet 1 05/31/2021 1 propranoloL (INDERAL) 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: Hereditary essential tremor Take 1 tablet (20 mg total) by mouth 2 (two) times a day as needed (Tremor) 180 tablet 1 05/31/2021 2 apixaban (ELIQUIS) 5 mg tabletIndications: Atrial fibrillation, unspecified type (HCC) Take 1 tablet (5 mg total) by mouth 2 (two) times a day 60 tablet 11 05/31/2021 2 documented in this encounter Progress Notes * Pepper Morgan MD - 05/31/2021 2:20 PM CST Images from the original note were not included. ASSESSMENT AND PLAN Patient Instructions ORDERS FOR AMS STAFF TO ARRANGE 1. Refer Dr. Deshpande evaluate for tremor, family is concerned she has Parkinson's WHICH IS NOW CONTROLLED ON PRAMIPEXOLE USED FOR Parkinson's and her restless leg. She has essential tremor. Family would like preoperative clearance for left hip replacement surgery before the allow her to have her hip replaced in June 20. Refer to Dr. Mckenzie June 2019 to evaluate for left hip replacement surgery when she is on her new insurance 3. LABS FOR TODAY and before the 3 month follow-up = BNP, CBC, basic panel = atrial fibrillation, medication monitor ORDERS FOR Tess Benedict TO ARRANGE 1. Immunization recommendation Tdap at the pharmacy before the end of the year Please get us information on the 3rd COVID shot 2. Medication change No medication changes are required, you may take medicines as prescribed especially the pramipexoleto keep the restless leg under control 3. Severe left hip Refer to Dr. [...] to be ready for the June surgery Patient Care Team: Pepper Morgan MD as PCP - General [facility], Hank Mccauley MD as Surgeon (Orthopedic Surgery) Jacky Murry MD (Ophthalmology) Mary Mckenzie MD as Surgeon (Orthopedic Surgery) Return in about 3 months (around 08/29/2021). Orders Placed This Encounter Procedures ??? Pro B-type natriuretic peptide ??? Basic metabolic panel ??? CBC with auto differential A brief review of all your problems, medications, and orders from today ICD-9-CM ICD-10-CM 1. Annual physical exam V70.0 Z00.00 2. Atrial fibrillation, unspecified type (HCC) 427.31 I48.91 apixaban (ELIQUIS) 5 mg tablet Pro B-type natriuretic peptide Basic metabolic panel CBC with auto differential 3. Parkinson's disease (tremor, stiffness, slow motion, unstable posture) (CMS/HCC) (HCC) 332.0 [id number] (MIRAPEX) 0.125 mg tablet 4. Hereditary essential tremor 333.1 G25.0 propranoloL (INDERAL) 20 mg tablet 5. Restless legs syndrome 333.94 G25.81 pramipexole (MIRAPEX) 0.125 mg tablet 6. 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 401.1 I10 spironolactone (Aldactone) 25 mg tablet felodipine (PLENDIL) 5 mg 24 hr tablet 7. Chronic GERD 530.[address] (PROTONIX) 20 mg EC tablet 8. Preoperative evaluation of a medical condition to rule out surgical contraindications (TAR required) V72.83 Z01.818 9. Hip arthritis 716.95 M16.10 traMADoL (ULTRAM) 50 mg tablet 10. Spinal stenosis of lumbar region with neurogenic claudication 724.03 M48.062 traMADoL (ULTRAM) 50 mg tablet 11. Cervical radiculopathy 723.4 M54.12 traMADoL (ULTRAM) 50 mg tablet 12. Medication monitoring encounter V58.83 Z51.81 Pro B-type natriuretic peptide Basic metabolic panel CBC with auto differential For your records I have provided this immunization report Immunization History Administered Date(s) Administered ??? Influenza, Quadrivalent, High Dose, Preservative Free, Intrr 03/31/2020 ??? Influenza, Quadrivalent, Split, Intramuscular 03/28/2016, 04/04/2017 ??? Influenza, Split 05/18/2012 ??? Influenza, Trivalent, Adjuvanted, Intramuscular 04/17/2019 ??? Influenza, Trivalent, High Dose, Split, Preservative Free, Intramuscular 03/23/2015, 03/12/2018, 04/17/2019 ??? Influenza, Trivalent, Intramuscular 03/25/2014, 04/17/2015 ??? Influenza, Unspecified 03/13/2018, 03/19/2021 ??? Pfizer SARS-CoV-2 Vaccination (12+ yrs) 08/15/2020, 09/06/2020 ??? Pneumococcal Conjugate PCV 13 02/18/2015 ??? Pneumococcal Polysaccharide PPV23 05/17/2002, 04/26/2016 ??? Tdap 05/18/2011 Primary Pharmacy/DME suppliers: [id number] - [place] - [address] AT [facility] [address] [place] [address] PLEASE BRING IN ALL PILL BOTTLES TO EVERY OFFICE VISIT, THIS IS ESSENTIAL FOR ACCURATE REFILLS AND MAINTAINING AN ACCURATE MEDICATION LIST. PLEASE SIGN UP FOR MyCHART so that you may have access to your labs and chart documentation IF YOU HAVE TROUBLE WITH THIS PROCESS CALL [phone] These are the results of the heart test done in April to share with Dr. Mckenzie and her family EKG April 21, 2021 Rate controlled atrial fibrillation Echocardiogram normal LVEF 05/11/2021 Normal left ventricular systolic function with no [...] calcifications in ascending aorta with normal caliber. Electronically Signed By: Stalin Arauz MD 2021-05-11 12:26:05 LOAD PLANNER This is a copy of the letter to Dr. Mckenzie Dear Dr. Mckenzie, I had the opportunity to visit with our mutual patient today for her yearly physical Tess Benedict. Over the past few months she developed rate controlled atrial fibrillation is now on Eliquis 5 mg twice daily Her medical workup for the AFib is all in normal range. She does not require cardiac clearance before the upcoming plans for left hip replacement surgery. She does have restless leg, essential tremor, and mild case of Parkinson's they are all very well controlled on pramipexole and Inderal. Her family has requested a neurology preoperative consultationbefore having surgery with you in June. You should be hearing from Dr. Deshpande regarding his recommendations for preoperative clearance. As you may remember she has difficulty with anesthesia and would like to have something that does not make her nauseated. She got into trouble with spinal anesthesia as much as general. Looking for to all the help he can give her to get through this painful problem Thank you for your help with her care, you will be seeing her in June Pepper Morgan MD CHIEF COMPLAINT Annual Exam HISTORY OF PRESENT [...] Annual Physical Exam Worksheet ) and a review of active and discontinued medication prescriptions ORDERS FROM LAST VISIT WITH NC 11/30/2020 1. Labs today = free T4 TSH diagnosis = tiredness 2. Labs for six-month follow-up = LDL, chemistry panel, CBC diagnosis = 3. Refer the [facility] radiology Medrol 80 mg left hip injection diagnosis =advanced arthritis ? ORDERS FOR Tess Benedict TO ARRANGE 1. Medication changes The tiredness issue: Cymbalta can be causing this, propranolol can be causing this--we are going tostop the Cymbalta and make the propranolol just twice daily if you feel like you needed for the tremor ?? -Stop Cymbalta 20 mg every morning, this medicine was prescribed for spinal stenosis in back and the neck pain. If those pains worsen off the medicine let me know and we will consider going on again.I think the medicine is causing you tiredness -increase the pramipexole 125 up to 1 tablet 3 times daily for the Parkinson's -Tramadol 50 mg will be 1/2 tablet twice daily with Tylenol ER 650 mg for the pain, I mass in the pharmacy to prescribe the all belong tablet football shaped easy to crack in half ?? Advanced arthritis left hip Consider for hip replacement in the fall and winter--we are going to do a cortisone shot now for your pain --begin using a cane in the right hand when he walked to stabilize in case the hip is unstable DETAILS REGARDING THIS VISIT: Tess reports feeling poorly related increasing pain from her severe left hip arthritis aggravating her spinal stenosis 1. Annual physical exam Documented on the annual information sheet FURTHER NON ANNUAL PHYSICAL DETAILS REGARDING THIS VISIT required an additional 34 enif-kg-vcxp minutes of care time: 2. Atrial fibrillation, unspecified type (HCC) New diagnosis of atrial fibrillation found at sick call visit with little shortness of breath. She has good rate control. Her echo shows good LV function. She was placed on Lasix 20 mg daily with complete resolution of all pedal edema. Her BNP before start of medicine was at 11:00 a.m.. She has tolerated Eliquis without difficulty. We refilled her medications and will update her labs to include CBC BNP and basic panel making sure she is tolerating all meds without electrolyte disturbance. apixaban (ELIQUIS) 5 mg tablet; Take 1 tablet (5 mg total) by mouth 2 (two) times a day Dispense: 60 tablet; Refill: 11 3. Parkinson's disease (tremor, stiffness, slow motion, unstable posture) ([facility]/HCC) ([facility]) Parkinson's tremor treated along with her restless leg by taking Mirapex 0.125 mg. She has been leery about taking the medication was holding off on dosing but is encouraged to take 3 pills a day. She will start 9:00 a.m. 3:00 p.m. and then 9:00 p.m.. This should take her through the entire day with good control of the restless leg as well as her Parkinson's problem. pramipexole (MIRAPEX) 0.125 mg tablet; Take 1 tablet (0.125 mg total) by mouth 3 (three) times a day Take at 9:00 a.m., 3:00 p.m., 9:00 p.m. Dispense: 270 tablet; Refill: 1 4. Hereditary essential tremor She has long history of the essential tremor which remains very mild and dramatically improved in general on examination today with the Parkinson's under control. Will continue low doses of Inderal both for heart rate control and for this tremor propranoloL (INDERAL) 20 mg tablet; Take 1 tablet (20 mg total) by mouth 2 (two) times a day as needed (Tremor) Dispense: 180 tablet; Refill: 1 5. Restless legs syndrome On Mirapex but she would like more than 1 -2 times daily pill she is taking pramipexole (MIRAPEX) 0.125 mg tablet; Take 1 tablet (0.125 mg total) by mouth 3 (three) times a day Take at 9:00 a.m., 3:00 p.m., 9:00 p.m. Dispense: 270 tablet; Refill: 1 6. 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 Blood pressure well controlled on Aldactone Plendil propranolol and Lasix combination. Will continue all 4 drugs for now and get her through the upcoming surgery in June with Dr. Mckenzie for hip replacement. She is tolerating well on his lungs labs are in range is not a good idea to switch as she has many medicine she cannot tolerate spironolactone (Aldactone) 25 mg tablet; Take 1 tablet (25 mg total) by mouth daily Dispense: 90 tablet; Refill: 1 felodipine (PLENDIL) 5 mg 24 hr tablet; Take 1 tablet (5 mg total) by mouth daily Dispense: 90 tablet; Refill: 1 7. Chronic GERD GERD well controlled at this time with Protonix. Medication previously used for nonsteroidals but she is off of those now that she is on Eliquis. Will consider coming off this medicine at follow-up in August pantoprazole DR (PROTONIX) 20 mg EC tablet; Take 1 tablet (20 mg total) by mouth daily With the largest meal Dispense: 90 tablet; Refill: 1 8. Preoperative evaluation of a medical condition to rule out surgical contraindications (TAR required) As far as I am concerned she is medically optimized for upcoming surgery. I do not need cardiology visit for her AFib. I do not need a neurology visit but her family insists on a 2nd opinion from Neurology to make sure she does not have trouble with anesthesia postop from her hip replacement. I think this is reasonable on referral is sent to Dr. Leavitt to review her case and advise 9. Hip arthritis 10. Spinal stenosis of lumbar region with neurogenic claudication 11. Cervical radiculopathy Main source of pain now it is radiating mainly in her left medial groin and into her medial knee iscoming from her left hip. She does have a known history of spinal stenosis which is completely controlled with her stretching exercises and Ultram. We will use tramadol 25 mg twice daily she may takean extra half tablet on occasion at night if she is in lot more pain because of the hip problem. Fiv e refills are given on this medicine and will be re-evaluated at her August visit with me . A despite return to her 3 wheeled walker with some weight-bearing on her arms she has not noticed return of the cervical radiculopathy pain PAST MEDICAL HISTORY Past Medical History: Diagnosis Date ??? Arthritis [...] ??? Tobacco use 1-2ppd x 35yrs quit PAST SURGICAL HISTORY Past Surgical History: Procedure Laterality Date ??? BARIATRIC SURGERY 1983 gastroplasty ??? BREAST BIOPSY 1994 Breast biopsy ??? CHOLECYSTECTOMY 1991 Cholecystectomy ??? FL FLUORO GUIDED INJECTION HIP LEFT Left 01/28/2021 ??? FLUORO GUIDED INJECTION HIP RIGHT Right 04/08/2019 ??? HAND SURGERY 1975 hand surgery ??? HERNIA REPAIR Hernia repair ??? KNEE ARTHROSCOPY 2002 Arthroscopy knee ??? KNEE ARTHROSCOPY Arthroscopy knee ??? OTHER SURGICAL HISTORY 1991 strangulated hernia: hernia repair ??? OTHER SURGICAL HISTORY 2002 Cancer, basal Cell: resection with skin graft ??? REPLACEMENT TOTAL KNEE Left 02/07/2017 Dr. Meier ??? TOTAL HIP ARTHROPLASTY Right 06/2019 The successful right hip replacement Dr. Mckenzie FAMILY HISTORY family history includes Abdominal Aortic Aneurysm in her father; Arthritis in an other family member; COPD in her father; Cancer in an other family member. SOCIAL HISTORY Social History Socioeconomic History ??? Marital status: Spouse name: Not on file ??? Number of children: 3 ??? Years of education: 12 ??? Highest education level: Not on file Occupational History ??? 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 Smoking status: Former Smoker Quit date: 1991 Years since quittin.9 ??? Smokeless tobacco: Never Used Substance and Sexual Activity ??? Alcohol use: [...] on file Housing Stability: Not on file THE REVIEW OF SYSTEMS Review of Systems Constitutional: Positive for activity change (Much less physically active with left hip), appetite change ( eating more sweets) and unexpected weight change ( not aware that she has 12 lb weight gain). Negative for fatigue and fever. HENT: Negative for congestion, dental problem, hearing loss, postnasal drip, sinus pressure, sore throat and trouble swallowing. Eyes: Negative for pain, discharge, itching and visual disturbance. Respiratory: Negative for cough, chest tightness, shortness of breath ( shortness of breath resolved on Lasix) and wheezing. Cardiovascular: Negative for chest pain and palpitations ( no further palpitations). Gastrointestinal: Negative for abdominal distention, abdominal pain, anal bleeding, blood in stool,constipation, diarrhea, nausea, rectal pain and vomiting. Endocrine: Negative for cold intolerance, heat intolerance and polyuria. Genitourinary: Negative for difficulty urinating, dysuria, flank pain, frequency, hematuria, menstrual problem, pelvic pain and vaginal discharge. Musculoskeletal: Positive for arthralgias ( severe left hip arthralgias radiating to the left knee), back pain and neck stiffness. Negative for gait problem, joint swelling and myalgias. Skin: Negative for color change and rash. Neurological: Negative for dizziness, weakness and headaches. Hematological: Negative for adenopathy. Does not bruise/bleed easily. Psychiatric/Behavioral: Positive for dysphoric mood ( in lot of pain with her left hip and frustrated she has to use a walker frustrated with requirements imposed upon her by her family wanting left hip surgery). Negative for behavioral problems and sleep disturbance. The patient is not nervous/anxious. Breast: Negative for tenderness and lump(s). MEDICATIONS CHANGED / CLEANED UP THIS VISIT Medications Discontinued During This Encounter Medication Reason ??? pramipexole (MIRAPEX) 0.125 mg tablet Reorder ??? propranoloL (INDERAL) 20 mg tablet Reorder ??? spironolactone (Aldactone) 25 mg tablet Reorder ??? pantoprazole DR (PROTONIX) 20 mg EC tablet Reorder ??? felodipine (PLENDIL) 5 mg 24 hr tablet Reorder ??? apixaban (ELIQUIS) 5 mg tablet Reorder ??? traMADoL (ULTRAM) 50 mg tablet Reorder MEDICATION LIST AT CONCLUSION OF THIS VISIT Current Outpatient Medications Ordered in [facility] Medication Sig Dispense Refill ??? albuterol [...] capsule Take by mouth ??? cholecalciferol (VITAMIN D3) 2,000 unit tablet Take 2,000 Units by mouth daily ??? felodipine (PLENDIL) 5 mg 24 hr tablet Take 1 tablet (5 mg total) by mouth daily 90 tablet 1 ??? furosemide (LASIX) 20 mg tablet Take 1 tablet (20 mg total) by mouth daily 30 tablet 11 ??? pantoprazole DR (PROTONIX) 20 mg EC [...] ??? spironolactone (Aldactone) 25 mg tablet Take 1 tablet (25 mg total) by mouth daily 90 tablet 1 ??? traMADoL (ULTRAM) 50 mg tablet Take 0.5-1 tablets (25-50 mg total) by mouth 2 (two) times a day40 tablet 5 No current [facility]-ordered facility-administered medications on file. ALLERGIES is allergic to celecoxib, sulfa (sulfonamide antibiotics), amlodipine, lisinopril, trazodone, cymbalta [duloxetine], scopolamine, and sinemet [carbidopa-levodopa]. PHYSICAL EXAM body mass index is 32.61 kg/m??. Vitals: 05/31/21 1443 BP: 156/80 BP Location: Left arm Patient Position: Sitting Pulse: 81 Resp: 12 Temp: 36.4 ??C (97.5 ??F) TempSrc: Temporal SpO2: 99% Weight: 84.8 kg (187 lb) Height: 161.3 cm (5' 3.5 ) Physical Exam Vitals reviewed. Constitutional: General: She is not in acute distress. Appearance: Normal appearance. She is well-developed. She is obese. She is not ill-appearing. HENT: Head: Normocephalic. Right Ear: Tympanic membrane and external ear [...] No JVD. Cardiovascular: Rate and Rhythm: Normal rate. Rhythm irregular. Pulses: Normal pulses. Heart sounds: Normal heart sounds. No murmur heard. No gallop. Comments: Irregular rate controlled AFib Pulmonary: Effort: Pulmonary effort is normal. Breath sounds: Normal breath sounds. No wheezing, rhonchi or rales. Abdominal: General: Bowel sounds are normal. Palpations: Abdomen is soft. There is no splenomegaly or mass. Tenderness: There is no abdominal tenderness. Hernia: No hernia is present. Genitourinary: Exam position: Knee-chest position. Uterus: Not tender. Adnexa: Right: No mass or tenderness. Left: No mass or tenderness. Rectum: Guaiac result negative. No mass or tenderness. Comments: Breast examination: Bilateral breast examination healthy without mass or axillary adenopathy Pelvic examination was not possible due to her disability unable to get onto the exam take: Bedside rectal exam done to exclude any blood in the stool No rectocele Rectal examination without mass Musculoskeletal: General: Deformity present. No tenderness. Cervical back: Normal range of motion and neck supple. Right lower leg: No edema. Left lower leg: No edema. Comments: Excellent healing bilateral knee replacement sites with no synovitis, tenderness with mobility of this very arthritic left hip. Loss of normal lordotic curvature lumbar spine. Mild kyphosisupper thoracic spine and neck with good neck mobility inducing no pain. Long-term atrophy of her left arm from previous surgery dating back to her early ears Lymphadenopathy: Cervical: No cervical adenopathy. Skin: General: Skin is warm and dry. Coloration: Skin is not jaundiced. Findings: No bruising, erythema, lesion or rash. Neurological: General: No focal deficit present. Mental Status: She is alert and oriented to person, place, and time. Mental status is at baseline. Cranial Nerves: No cranial nerve deficit. Sensory: No sensory deficit. Motor: No weakness (No difficulty with [id number] despite her hip problem if she strong with her right leg) or abnormal muscle tone. Coordination: Coordination normal. Gait: Gait abnormal ( arthritic gait consistent with her left hip arthritis). Deep Tendon Reflexes: Reflexes are normal and symmetric. Reflexes normal. Babinski sign absent on the right side. Babinski sign absent on the left side. Psychiatric: Behavior: Behavior normal. Thought Content: Thought content normal. Judgment: Judgment normal. Comments: Anxious nervous that she cannot get into the patient care manager soon enough were neurologist toget through the recommendations her family has in the requirements to have for her before she can have hip replacement surgery however resolved many of these issues today please see the note to Dr. Mckenzie Comprehensive physical examination was completed today and [...] ???HMLIST ?? Health Maintenance Topic Date Due ??? Osteoporosis Screening-Bone Density Scan Never done ??? Zoster Vaccines Never done ??? Covid-19 Vaccine (3 - Pfizer booster) 03/09/2021 ??? DTaP/Tdap/Td Vaccine (2 - Td or Tdap) 05/18/2021 ??? Fall Risk Assessment 05/31/2022 ??? Depression Screening-PHQ 05/31/2022 ??? Regular Well Visit/Exam 05/31/2022 ? ? Pneumococcal (PCV13 & PPSV23) 65+ yrs High Risk Completed ? ? Pneumococcal (PCV13 & PPSV23) 65+ yrs Completed ??? Influenza Vaccine Completed WHICH IS INCOMPLETE UNTIL A SOLUTION [...] HEALTH MAINTENANCE TESTING DOCUMENTED WHEN POSSIBLE IN [facility] FLOW SHEETS INCLUDING:PHQ depression screening, HRA screening, cognitive evaluation with 3 ITEM RECALL( with clock draw and BARD ADL/IADL screening when appropriate), FALL RISK ASSESSMENT. Appropriate documented not available on [facility] are on the scanned preventive health document created today. COUNTY JUDGE REVIEW COMPLETED WITH administrative tasks including DME provider recommendations when Appropriate. THE PHARMACY SECTION CONTAIN primary secondary and mail order pharmacy choices selected by Tess Morgan M.D. THE FOLLOWING CLERICAL INFORMATION DOES NOT DUE TO BE SENT IN A PRINTED DOCUMENT LABS REVIEWED WITH Tess Benedict THIS VISIT EKG April 21, 2021 Rate controlled atrial fibrillation Echocardiogram normal LVEF 05/11/2021 Normal left ventricular systolic function with no [...] - 15.5 g/dL Final ??? Hct 05/24/2021 45.9* 35.6 - 45.5 % Final ??? Plt 05/24/2021 335 150 - 400 K/cumm Final ??? MPV 05/24/2021 9.5 9.1 - 12.3 fL Final ??? RBC 05/24/2021 4.93 3.90 - 5.20 M/cumm Final ??? MCV 05/24/2021 93.1 81.3 - 96.4 fL Final ??? MCH 05/24/2021 28.0 27.1 - 33.3 pg Final ??? MCHC 05/24/2021 30.1* 32.3 - 35.7 g/dL Final ??? RDW CV 05/24/2021 13.5 11.1 - 14.9 % Final ??? RDW SD 05/24/2021 46.4 35.7 - 48.1 fL Final ??? NRBC abs 05/24/2021 0.00 0.00 - 0.01 K/cumm Final ??? Sodium 05/24/2021 139 135 - 145 mmol/L Final ??? Potassium, pl 05/24/2021 5.2* 3.3 - 4.9 mmol/L Final ??? Chloride 05/24/2021 102 97 - 110 mmol/L Final ??? CO2 05/24/2021 28 22 - 32 mmol/L Final ??? Anion gap 05/24/2021 9 2 - 15 mmol/L Final ??? BUN 05/24/2021 15 8 - 25 mg/dL Final ??? Creatinine 05/24/2021 1.22* 0.60 - 1.10 mg/dL Final ??? Glucose [...] Ref Range Status ? ? NT-proBNP 04/21/2021 1,905* <=450 pg/mL Final Office Visit on 04/21/2021 Component Date Value Ref Range Status ??? COVID-19 Ag POC (BD Veritor) 04/21/2021 Presumptive Negative Presumptive Negative, Invalid Final Clinical Support on 04/20/2021 Component Date Value Ref Range Status ??? COVID-19 Ag POC (BD Veritor) 04/20/2021 Presumptive Negative Presumptive Negative, Invalid Final Lab on 01/08/2021 Component Date Value Ref Range Status ??? Sodium 01/08/2021 133* 135 - 145 mmol/L Final ??? Potassium, pl 01/08/2021 4.7 3.3 - 4.9 mmol/L Final ??? Chloride 01/08/2021 97 97 - 110 mmol/L Final ??? CO2 01/08/2021 26 22 - 32 mmol/L Final ??? Anion gap 01/08/2021 10 2 - 15 mmol/L Final ??? BUN 01/08/2021 13 8 - 25 mg/dL Final ??? Creatinine 01/08/2021 0.58* 0.60 - 1.10 mg/dL Final ??? Glucose 01/08/2021 80 70 - 199 mg/dL Final ??? Calcium 01/08/2021 9.2 8.5 - 10.3 mg/dL Final ??? WBC 01/08/2021 7.6 3.8 - 9.9 K/cumm Final ??? Hgb 01/08/2021 14.3 11.9 - 15.5 g/dL Final ??? Hct 01/08/2021 45.8* 35.6 - 45.5 % Final ??? Plt 01/08/2021 370 150 - 400 K/cumm Final ??? MPV 01/08/2021 9.5 9.1 - 12.3 fL Final ??? RBC 01/08/2021 5.05 3.90 - 5.20 M/cumm Final ??? MCV 01/08/2021 90.7 81.3 - 96.4 fL Final ??? MCH 01/08/2021 28.3 27.1 - 33.3 pg Final ??? MCHC 01/08/2021 31.2* 32.3 - 35.7 g/dL Final ??? RDW [...] 11/30/2020 1.29 0.90 - 1.70 ng/dL Final Lab on 2020 Component Date Value Ref Range Status ??? Sodium 2020 136 135 - 145 mmol/L Final ??? Potassium, pl 2020 4.8 3.3 - 4.9 mmol/L Final ??? Chloride 2020 99 97 - 110 mmol/L Final ??? CO2 2020 29 22 - 32 mmol/L Final ??? Anion gap 2020 8 2 - 15 mmol/L Final ??? BUN 2020 13 8 - 25 mg/dL Final ??? Creatinine 2020 0.59* 0.60 - 1.10 mg/dL Final ??? Glucose 2020 85 70 - 199 mg/dL Final ??? Calcium 2020 9.1 8.5 - 10.3 mg/dL Final ??? Bilirubin, total 2020 0.4 0.1 - 1.2 mg/dL Final ??? Protein, pl 2020 6.8 6.5 - 8.5 g/dL Final ??? Albumin 2020 3.9 3.5 - 5.0 g/dL Final ??? Alk phos 2020 114 40 - 130 Units/L Final ??? ALT 2020 6* 7 - 45 Units/L Final ??? AST 2020 18 10 - 45 Units/L Final ??? WBC 2020 6.2 3.8 - 9.9 K/cumm Final ??? Hgb 2020 14.1 11.9 - 15.5 g/dL Final ??? Hct 2020 45.7* 35.6 - 45.5 % Final ??? Plt 2020 310 150 - 400 K/cumm Final ??? MPV 2020 9.3 9.1 - 12.3 fL Final ??? RBC 2020 5.10 3.90 - 5.20 M/cumm Final ??? MCV 2020 89.6 81.3 - 96.4 fL Final ??? MCH 2020 27.6 27.1 - 33.3 pg Final ??? MCHC 2020 30.9* 32.3 - 35.7 g/dL Final ??? RDW CV 2020 13.4 11.1 - 14.9 % Final ??? RDW SD 2020 44.2 35.7 - 48.1 fL Final ??? NRBC abs 2020 0.00 0.00 - 0.01 K/cumm Final ??? Neutrophil abs 2020 4.2 1.7 - 6.5 K/cumm Final ??? Imm gran abs 2020 0.0 0.0 - 0.1 K/cumm Final ??? Lymphocyte abs 2020 1.0 0.8 - 3.3 K/cumm Final ??? Monocyte abs 2020 0.5 0.2 - 0.8 K/cumm Final ??? Eosinophil abs 2020 0.4 0.0 - 0.5 K/cumm Final ??? Basophil abs 2020 0.1 0.0 - 0.1 K/cumm Final ??? Neutrophil pct 2020 67.7 % Final ??? Imm gran pct 2020 0.5 % Final ??? Lymphocyte pct 2020 15.8 % Final ??? Monocyte pct 2020 8.6 % Final ??? Eosinophil pct 2020 6.6 % Final ??? Basophil pct 2020 0.8 % Final ??? eGFR 2020 85 mL/min/1.73 m2 Final Patient Active Problem List Diagnosis Code ??? 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 Chronic GERD K21.9 ??? 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 I10 ??? Restless legs syndrome G25.81 ??? History of melanoma Z85.820 ??? 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 Insomnia, persistent G47.00 ??? Chronic pain disorder G89.4 ??? Knee joint replacement status, bilateral Z96.653 ??? History of basal cell carcinoma (BCC) Z85.828 ??? History of malignant melanoma Z85.820 ??? History of arthroplasty of right knee Z96.651 ??? Acute low back pain M54.50 ??? Iron deficiency anemia D50.9 ??? intermediate designer (current) use of non-steroidal anti-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s (nsaid) Z79.1 ??? Constipation due to opioid therapy K59.03, T40.2X5A ??? Acute bacterial rhinosinusitis J01.90, B96.89 ??? Sinus bradycardia R00.1 ??? Chest congestion R09.89 ??? Shortness of breath R06.02 ??? Atrial fibrillation (CMS/HCC) (HCC) I48.91 PLANNER documented in this encounter Miscellaneous Notes * Addendum Note - Randy Ramos MA - 05/31/2021 2:20 PM CSTAddended by: RANDY RAMOS on: 06/09/2021 02:38 PM Modules accepted: Orders PLANNER documented in this encounter Plan of Treatment Scheduled Referrals Name Type Priority Associated Diagnoses Order Schedule Ambulatory referral to Orthopedic Surgery Outpatient Referral Routine Hip arthritis Expected: 06/09/2021 (Approximate), Expires: 06/09/2022 documented as of this encounter Results * (ABNORMAL) CBC with auto differential (08/16/2021 9:07 AM LOAD PLANNER) WBC 6.5 3.8 - 9.9 K/cumm [facility] Hgb 13.9 11.9 - 15.5 g/dL [facility] Hct 45.5 35.6 - 45.5 % [facility] Plt 313 150 - 400 K/cumm [facility] MPV 9.6 9.1 - 12.3 fL [facility] RBC 5.11 3.90 - 5.20 M/cumm [facility] MCV 89.0 81.3 - 96.4 fL [facility] MCH 27.2 27.1 - 33.3 pg [facility] MCHC 30.5(L) 32.3 - 35.7 g/dL [facility] RDW CV 13.8 11.1 - 14.9 % [facility] RDW SD 45.1 35.7 - 48.1 fL [facility] NRBC abs 0.00 0.00 - 0.01 K/cumm [facility] Blood 08/16/2021 9:07 AM LOAD PLANNER 08/16/2021 2:34 PM LOAD PLANNER Pepper Morgan MD LAB BLOOD ORDERABLES Final Result Performing Organization Address [facility]/ZIP Co de Phone Number [facility] [address] Department [place] [address] * (ABNORMAL) Basic metabolic panel (06/16/2021 10:42 AM LOAD PLANNER) Sodium 138 135 - 145 mmol/L [facility] Potassium, pl 5.0(H) 3.3 - 4.9 mmol/L [facility] Chloride 97 97 - 110 mmol/L [facility] CO2 30 22 - 32 mmol/L [facility] Anion gap 11 2 - 15 mmol/L [facility] BUN 18 8 - 25 mg/dL [facility] Creatinine 0.70 0.60 - 1.10 mg/dL [facility] Glucose 78 70 - 199 mg/dL [facility] Comment: Interpretive Data Fasting glucose >/= 126 [...] 2017. Calcium 9.8 8.5 - 10.3 mg/dL [facility] Blood 06/16/2021 10:4 2 AM LOAD PLANNER 06/17/2021 10:54 AM LOAD PLANNER Pepper Morgan MD LAB BLOOD ORDERABLES Final Result Performing Organization Address [facility]/ZIP Co de Phone Number [facility] [address] Department [place] [address] * (ABNORMAL) Pro B-type natriuretic peptide (06/16/2021 10:42 AM LOAD PLANNER) NT-proBNP 2,016(H) <=450 pg/mL [facility] Comment: Interpretive Comments: A. Dyspnea in Acute [...] Date: 2018. Blood 06/16/2021 10:4 2 AM LOAD PLANNER 06/17/2021 10:54 AM LOAD PLANNER us Pepper Morgan MD LAB BLOOD ORDERABLES Final Result [facility] [address] Department [place] [address] * (ABNORMAL) CBC with auto differential (05/31/2021 4:24 PM LOAD PLANNER) Pathologist [facility] WBC 8.0 3.8 - 9.9 K/cumm [facility] Hgb 14.3 11.9 - 15.5 g/dL [facility] Hct 44.7 35.6 - 45.5 % [facility] Plt 339 150 - 400 K/cumm [facility] MPV 9.6 9.1 - 12.3 fL [facility] RBC 4.99 3.90 - 5.20 M/cumm [facility] MCV 89.6 81.3 - 96.4 fL [facility] MCH 28.7 27.1 - 33.3 pg [facility] MCHC 32.0(L) 32.3 - 35.7 g/dL [facility] RDW CV 13.4 11.1 - 14.9 % [facility] RDW SD 44.4 35.7 - 48.1 fL [facility] NRBC abs 0.00 0.00 - 0.01 K/cumm [facility] Blood 05/31/2021 4:24 PM LOAD PLANNER 05/31/2021 9:27 PM LOAD PLANNER Pepper Morgan MD LAB BLOOD ORDERABLES Final Result [facility] [address] Department of Laboratories [place], [place] [id number] * (ABNORMAL) Basic metabolic panel (05/31/2021 4:24 PM LOAD PLANNER) Pathologist [facility] Sodium 140 135 - 145 mmol/L [facility] Potassium, pl 5.4(H) 3.3 - 4.9 mmol/L [...] Calcium 9.6 8.5 - 10.3 mg/dL [facility] Blood 05/31/2021 4:24 PM LOAD PLANNER 05/31/2021 9:27 PM LOAD PLANNER us Pepper Morgan MD LAB BLOOD ORDERABLES Final Result [facility] [address] Department [place] [address] * (ABNORMAL) Pro B-type natriuretic peptide (05/31/2021 4:24 PM LOAD PLANNER) NT-proBNP 1,611(H) <=450 pg/mL [facility] Comment: Interpretive [...] Revised Date: 2018. Blood 05/31/2021 4:24 PM LOAD PLANNER 05/31/2021 9:27 PM LOAD PLANNER us Pepper Morgan MD LAB BLOOD ORDERABLES Final Result Performing Organization Address City/State/ZIP Co ar Phone Number [facility] [address] [facility] Department [place] [address] documented in this encounter Visit Diagnoses Diagnosis Annual physical exam- Primary Routine general medical examination at a health care facility Atrial fibrillation, unspecified type (HCC) Parkinson's disease (tremor, stiffness, slow motion, unstable posture) (HCC) Paralysis agitans Hereditary essential tremor Essential and other specified forms of tremor Restless legs syndrome Restless legs syndrome (RLS) 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 Essential hypertension, benign Chronic GERD Preoperative evaluation of a medical condition to rule out surgical contraindications (TAR required) Hip arthritis Unspecified arthropathy, pelvic region and thigh Spinal stenosis of lumbar region with neurogenic claudication Cervical radiculopathy Brachial neuritis or radiculitis nos Medication monitoring encounter Encounter for therapeutic drug monitoring documented in this encounter Discontinued Medications Medication Sig Discontinue Reason Start Date End Da te pramipexole (MIRAPEX) 0.125 mg tabletIndications:Idiopat hic Parkinsonism,Restless Legs Syndrome Take 1 tablet (0.125 mg total) by mouth 3 (three) times a day Reorder 11/30/2020 05/31/2021 propranoloL (INDERAL) 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:Heredit elmer essential tremor Take 1 tablet (20 mg total) by mouth 2 (two) times a day as needed (Tremor) Reorder 11/30/2020 05/31/2021 spironolactone (Aldactone) 25 mg tabletIndications: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 Take 1 tablet (25 mg total) by mouth daily Reorder 11/30/2020 05/31/[address] (PROTONIX) 20 mg EC tabletIndications:correction (current) use of non-steroidal anti-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s (nsaid) Take 1 tablet (20 mg total) by mouth daily With the largest meal Reorder 11/30/2020 05/31/2021 felodipine (PLENDIL) 5 mg 24 hr tabletIndications: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 Take 1 tablet (5 mg total) by mouth daily Reorder 11/30/2020 05/31/2021 apixaban (ELIQUIS) 5 mg tabletIndications:Atrial fibrillation, unspecified type (HCC) Take 1 tablet (5 mg total) by mouth 2 (two) times a day Reorder 04/21/2021 05/31/2021 traMADoL (ULTRAM) 50 mg tabletIndications:Spinal stenosis of lumbar region with neurogenic claudication,Cervical radiculopathy TAKE 1/2 TO 1 TABLET BY MOUTH TWICE DAILY NEEDED FOR PAIN, ALONG WITH TYLENOL ER 650 AT EACH DOSING Reorder 05/19/2021 05/31/2021 documented as of this encounter Care Teams Varnish Finisher Relationship Specialty Start Date End Date Pepper Morgan MD PCP - General 09/16/16 Hank Garibay MD [address] [facility] [address] [address] Surgeon Orthopedic Surgery 03/27/17 Jacky Murry MD [address] [facility] [address] [place] [address] Ophthalmology 03/27/17 Mary Mckenzie MD [address] [facility] [address] [place] [address] Surgeon Orthopedic Surgery 07/11/19 documented as of this encounter
--- OUTSIDE RECORDS SUMMARY | 2024-06-18 19:00 | XMS_ITS | Encounter Summary ---
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 Gender Identity Not on file Sexual Orientation Not on file Occupation Industry Job Start Date Job End Date retired Not on file Not on file Not on file documented as of this encounter Plan of Treatment Not on file documented as of this encounter Procedures Procedure Name Priority Date/Time Associated Diagnosis Comments TSH Routine 11/30/2020 12:22 PM CDT Tiredness T4, FREE Routine 11/30/2020 12:22 PM CDT Tiredness documented in this encounter Results * T4, free (11/30/2020 12:22 PM CDT) Free T4 1.29 0.90 - 1.70 ng/dL [facility] Blood specimen (specimen) 11/30/2020 12:22 PM CDT 11/30/2020 5:07 PM CDT Pepper Morgan MD LAB BLOOD ORDERABLES Final Result Performing Organization Address [facility] Co de Phone Number [facility] [address] [facility] [address] [place], [place] [phone] * TSH (11/30/2020 12:22 PM CDT) Thyroid Stimulating Hormone 3.18 0.30 - 4.20 mcIUnit/mL [facility] Blood specimen (specimen) 11/30/2020 12:22 PM CDT 11/30/2020 5:07 PM CDT Pepper Morgan MD LAB BLOOD ORDERABLES Final Result Performing Organization Address [facility] Co de Phone Number [facility] [address] [facility] [place] [address] documented in this encounter Visit Diagnoses Diagnosis Tiredness Other malaise and fatigue documented in this encounter Care Teams Conference Planner Relationship Specialty Start Date End Date Pepper Morgan MD PCP - General 09/16/16 Hank Garibay MD [address] [place] [address] [place] [address] Surgeon Orthopedic Surgery 03/27/17 Jacky Murry MD [address] [facility] [address] [place] [address] Ophthalmology 03/27/17 Puma Mckenzie MD [address] [facility] [address] [place] [address] Surgeon Orthopedic Surgery 07/11/19 documented as of this encounter
--- OUTSIDE RECORDS SUMMARY | 2024-06-18 19:00 | XMS_ITS | Encounter Summary ---
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 Gender Identity Not on file Sexual Orientation Not on file Occupation Industry Job Start Date Job End Date retired Not on file Not on file Not on file documented as of this encounter Plan of Treatment Not on file documented as of this encounter Procedures Procedure Name Priority Date/Time Associated Diagnosis Comments EGFR Routine 01/08/2021 11:57 AM CDT Chest congestion DIFFERENTIAL AUTO Routine 01/08/2021 11: 57 AM CDT Chest congestion CBC WITH AUTO DIFFERENTIAL Routine 01/08/2021 11:57 AM CDT Chest congestion BASIC METABOLIC PANEL Routine 01/08/2021 11:57 AM CDT Chest congestion documented in this encounter Results * eGFR (01/08/2021 11:57 AM CDT) eGFR 85 mL/min/1.7 3 m2 [facility] Comment: Interpretive [...] interpretive data was last reviewed 2020 Blood specimen (specimen) 01/08/2021 11:57 AM CDT 01/08/2021 5:11 PM CDT Jacqueline Mccraymarionshivam HEALTH SCREENER LAB BLOOD ORDERABL ES Final Result [facility] [address] [place] [address] * Differential, auto (01/08/2021 11:57 AM CDT) Neutrophil abs 5.1 1.7 - 6.5 K/cumm [facility] Imm gran abs 0.0 0.0 - 0.1 K/cumm [facility] Lymphocyte abs 1.3 0.8 - 3.3 K/cumm [facility] Monocyte abs 0.6 0.2 - 0.8 K/cumm [facility] Eosinophil abs 0.5 0.0 - 0.5 K/cumm [facility] Basophil abs 0.1 0.0 - 0.1 K/cumm [facility] Neutrophil pct 67.2 % [facility] Comment: Interpretive Data Percent cell count reference ranges are not reported, since discordance with absolute values may lead to misinterpretation of CBC data. Current Interpretive Data was last revised on 2017. Imm gran pct 0.5 % [facility] Comment: Interpretive Data Percent cell count reference ranges are not reported, since discordance with absolute values may lead to misinterpretation of CBC data. Current Interpretive Data was last revised on 2017. Lymphocyte pct 17.7 % [facility] Comment: Interpretive Data Percent cell count reference ranges are not reported, since discordance with absolute values may lead to misinterpretation of CBC data. Current Interpretive Data was last revised on 2017. Monocyte pct 7.8 % [facility] Comment: Interpretive Data Percent cell count reference ranges are not reported, since discordance with absolute values may lead to misinterpretation of CBC data. Current Interpretive Data was last revised on 2017. Eosinophil pct 6.1 % [facility] Comment: Interpretive Data Percent cell [...] Data was last revised on 2017. Blood specimen (specimen) 01/08/2021 11:57 AM CDT 01/08/2021 4:49 PM CDT Jacqueline Taylor Everrenettawally HEALTH SCREENER LAB BLOOD ORDERABL ES Final Result Performing Organization Address City/[facility]/ZIP Co de Phone Number [facility] [address] [place] [address] * (ABNORMAL) CBC with auto differential (01/08/2021 11:57 AM CDT) WBC 7.6 3.8 - 9.9 K/cumm [facility] CH Hgb 14.3 11.9 - 15.5 g/dL [facility] CH Hct 45.8(H) 35.6 - 45.5 % [facility] Plt 370 150 - 400 K/cumm [facility] MPV 9.5 9.1 - 12.3 fL [facility] RBC 5.05 3.90 - 5.20 M/cumm [facility] MCV 90.7 81.3 - 96.4 fL [facility] MCH 28.3 27.1 - 33.3 pg [facility] MCHC 31.2(L) 32.3 - 35.7 g/dL [facility] RDW CV 13.8 11.1 - 14.9 % [facility] RDW SD 46.2 35.7 - 48.1 fL [facility] NRBC abs 0.00 0.00 - 0.01 K/cumm [facility] Blood specimen (specimen) 01/08/2021 11:57 AM CDT 01/08/2021 4:49 PM CDT Jacquelinesloan Taylor Alina COHEN LAB BLOOD ORDERABL ES Final Result Performing Organization Address City/[facility]/ZIP Co de Phone Number [facility] [address] [place] [address] * (ABNORMAL) Basic metabolic panel (01/08/2021 11:57 AM CDT) Sodium 133(L) 135 - 145 mmol/L [facility] Potassium, pl 4.7 3.3 - 4.9 mmol/L [facility] Chloride 97 97 - 110 mmol/L [facility] CO2 26 22 - 32 mmol/L [facility] Anion gap 10 2 - 15 mmol/L [facility] CH BUN 13 8 - 25 mg/dL [facility] Creatinine 0.58(L) 0.60 - 1.10 mg/dL [facility] Glucose 80 70 - 199 mg/dL [facility] Comment: Interpretive Data Fasting glucose >/= 126 [...] 2017. Calcium 9.2 8.5 - 10.3 mg/dL [facility] Blood specimen (specimen) 01/08/2021 11:57 AM CDT 01/08/2021 4:49 PM CDT Jacqueline Fuller HEALTH SCREENER LAB BLOOD ORDERABL ES Final Result [facility] [address] Department [place] [address] documented in this encounter Visit Diagnoses Diagnosis Chest congestion Other symptoms involving respiratory system and chest documented in this encounter Care Teams Geophysical Prospecting Permit Agent Relationship Specialty Start Date End Date Pepper Morgan MD PCP - General 09/16/16 Hank Garibay MD [address] [place] [address] DR WARNER Sher[address] [address] Surgeon Orthopedic Surgery 03/27/17 Jacky Murry MD [address] [facility] [address] WARNER [address] [place] [address] Ophthalmology 03/27/17 Puma Mckenzie MD [address] [facility] [address] WARN[address] [place] [address] Surgeon Orthopedic Surgery 07/11/19 documented as of this encounter
--- OUTSIDE RECORDS SUMMARY | 2024-06-18 19:00 | XMS_ITS | Encounter Summary ---
Author Organization [facility] Address [address] [place] [address] Care Team Providers Care Spring Internship Name Role Phone Pepper Morgan MD Primary Care Provider + [phone] Hank Garibay MD Unavailable [phone] Jacky Murry MD Unavailable [phone] Puma Mckenzie MD Unavailable [phone] Reason for Referral * Diagnostic Imaging (Routine) - Closed Specialty Diagnoses / Procedures Referred By Contac t Referred To Contact Diagnoses Aftercare following right hip joint replacement surgery Procedures XR Hip Right 2 or 3 Views Puma Mckenzie MD Phone: tel: Referral ID Status Reason Start Date Expiration Date Visits Re quested Visits Authorized [id number] Closed 06/23/2020 07/23/2021 1 1 SIZER Reason for Visit * Reason Comments Follow-up Encounter Details Date Type Department Care Team (Late st Contact Info) Description 06/23/2020 9:00 AM DIE SIZER Office Visit [facility] Orthopedics and Sports Medicine [address] [place] [address] [address] [place] [phone] Puma Mckenzie MD [address] [place] [address] [address] [place] [address] Aftercare following right hip joint replacement surgery (Primary Dx); Aftercare following joint replacement surgery, [...] file Legal Sex Female 4:33 AM DIE SIZER Gender Identity Not on file Sexual Orientation Not on file Occupation Industry Job Start Date Job End Date retired Not on file Not on file Not on file documented as of this encounter Last Filed Vital Signs Vital Sign Reading Time Taken Comments Blood Pressure 158/81 06/23/2020 8:57 AM DIE SIZER Pulse 59 06/23/2020 8:57 AM DIE SIZER Temperature - - Respiratory Rate - - Oxygen Saturation - - Inhaled Oxygen Concentration - - Weight 79.3 kg (174 lb 12.8 oz) 06/23/2020 8:57 AM DIE SIZER Height 152.4 cm (5') 06/23/2020 8:57 AM DIE SIZER Body Mass Index 34.14 06/23/2020 8:57 AM DIE SIZER documented in this encounter Progress Notes * Puma Mckenzie MD - 06/23/2020 9:00 AM CST POST-OPERATIVE PROGRESS NOTE History of Present Illness Patient is a 84 y.o. female who presents for a 1 year follow-up s/p right total hip arthroplasty. The patient has no complaints at this time and has been back to regular activity with no issues. Her only complaint is worsening left hip pain. However she states that she has had some Parkinson's symptoms and has been officially diagnosed with Parkinson's disease. She is worried about having additional surgery because she feels that may exacerbate her parkinsonism. ROS Negative except stated in HPI. Physical Exam Patient is A&Ox3, NAD. Good hip ROM without impingement. Leg lengths equal bilaterally. Ambulates well with minimal limp or antalgic gait. SILT, good DF/PF. 2+ distal pulses, cap refill < 2 seconds. XR Interpretation X-rays show well positioned hip arthroplasty without interval change. No acute pathology is noted. Assessment 1. S/P right ASHLEE, progressing well. Plan 1. Continue WBAT and activity as tolerated. 2. Follow up as needed. Patient concerns about exacerbation of Parkinson's are warranted, but she should monitor her left hip symptoms and if they become severe should return for consideration for total hip arthroplasty and there are techniques that anesthesia can employ to minimize affects on Parkinson's. We discussed this at length and she understands. Puma Mckenzie MD SIZER documented in this encounter Plan of Treatment Not on file documented as of this encounter Procedures Procedure Name Priority Date/Time Associated Diagnosis Comments XR HIP RIGHT 2 OR 3 VIEWS Schedule Routine, Read Routine (OP Routine) 06/23/2020 4:06 PM DIE SIZER Aftercare following right hip joint replacement surgery documented in this encounter Results * XR Hip Right 2 or 3 Views (06/23/2020 4:06 PM DIE SIZER) Anatomical Region Laterality Modality Lower Extremities, Hip, Pelvis Right D igital Radiography Narrative 06/23/2020 4:06 PM DIE SIZER Right total hip arthroplasty in appropriate position with no interval change. ??Advanced left hip osteoarthritis. Puma Mckenzie MD IMG XR PROCEDURES Final Result documented in this encounter Visit Diagnoses Diagnosis Aftercare following right hip joint replacement surgery- Primary Aftercare following joint replacement surgery, unspecified joint documented in this encounter Care Teams [employer] Intern[employer] Relationship Specialty Start Date End Date Pepper Morgan MD PCP - General 09/16/16 Hank Garibay MD [address] [place] [address] DR WARNER Sher[address] [address] Surgeon Orthopedic Surgery 03/27/17 Jacky Murry MD [address] [place] [address] [address] WARNER [address] [place] [address] Ophthalmology 03/27/17 Puma Mckenzie MD [address] [facility] [address] WARNER [address] [place] [address] Surgeon Orthopedic Surgery 07/11/19 documented as of this encounter
--- OUTSIDE RECORDS SUMMARY | 2024-06-18 19:00 | XMS_ITS | Encounter Summary ---
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 Dyspnea in [...] Interpretive Data Last Revised Date: 2018. Blood 04/21/2021 3:56 PM CDT 04/21/2021 8:09 PM CDT us Jacqueline Fuller METER/RELAY TECHNICIAN LAB BLOOD ORDERABL ES Final Result [facility] [address] [place] [address] documented in this encounter Visit Diagnoses Diagnosis Shortness of breath documented in this encounter Care Teams Study Assistant Relationship Specialty Start Date End Date Pepper Morgan MD PCP - General 09/16/16 Hank Garibay MD [address] [facility] [address] WARN[address] [place] [address] Surgeon Orthopedic Surgery 03/27/17 Jacky Murry MD [address] [facility] [address] WARN[address] [place] [address] Ophthalmology 03/27/17 Puma Mckenzie MD [address] [facility] [address] WARN[address] [place] [address] Surgeon Orthopedic Surgery 07/11/19 documented as of this encounter
--- OUTSIDE RECORDS SUMMARY | 2024-06-18 19:00 | XMS_ITS | Encounter Summary ---
Author Organization [facility] Address [address] [facility] [address] [place] [address] Care Team Providers Care Warp Dyeing Tender Name Role Phone Pepper Morgan MD Primary Care Provider + [phone] Hank Garibay MD Unavailable [phone] Jacky Murry MD Unavailable [phone] Puma Mckenzie MD Unavailable [phone] Encounter Details Date Type Department Care Team (Late st Contact Info) Description 2020 9:00 AM CDT [facility] [address] [place] [phone] 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 Social History Tobacco Use Types [...] on file 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 Gender Identity Not on file Sexual Orientation Not on file Occupation Industry Job Start Date Job End Date retired Not on file Not on file Not on file documented as of this encounter Plan of Treatment Not on file documented as of this encounter Visit Diagnoses Diagnosis 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 Essential hypertension, benign documented in this encounter Care Teams Warp Dyeing Tender Relationship Specialty Start Date End Date Pepper Morgan MD PCP - General 09/16/16 Hank Garibay MD [address] [facility] [address] [place] [address] Surgeon Orthopedic Surgery 03/27/17 Jacky Murry MD [address] [facility] [address] [place] [address] Ophthalmology 03/27/17 Puma Mckenzie MD [address] [facility] [address] [place] [address] Surgeon Orthopedic Surgery 07/11/19 documented as of this encounter
--- OUTSIDE RECORDS SUMMARY | 2024-06-18 19:00 | XMS_ITS | Encounter Summary ---
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 Gender Identity Not on file Sexual Orientation Not on file Occupation Industry Job Start Date Job End Date retired Not on file Not on file Not on file documented as of this encounter Plan of Treatment Not on file documented as of this encounter Procedures Procedure Name Priority Date/Time Associated Diagnosis Comments EGFR Routine 2020 9:04 AM CDT 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 Medication monitoring encounter DIFFERENTIAL AUTO Routine 2020 9:0 4 AM CDT 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 Medication monitoring encounter CBC WITH AUTO DIFFERENTIAL Routine 2020 9:04 AM CDT 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 Medication monitoring encounter COMPREHENSIVE METABOLIC PANEL Routine 2020 9:04 AM CDT 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 Medication monitoring encounter documented in this encounter Results * eGFR (2020 9:04 AM CDT) eGFR 85 mL/min/1.7 3 m2 [...] was last reviewed 2020 Blood specimen (specimen) 2020 9:04 AM CDT 2020 12:53 PM CDT us Pepper Morgan MD LAB BLOOD ORDERABLES Final Result [facility] [address] Department [place] [address] * Differential, auto (2020 9:04 AM CDT) Neutrophil abs 4.2 1.7 - 6.5 K/cumm [facility] Imm gran abs 0.0 0.0 - 0.1 K/cumm [facility] Lymphocyte abs 1.0 0.8 - 3.3 K/cumm [facility] Monocyte abs 0.5 0.2 - 0.8 K/cumm [facility] Eosinophil abs 0.4 0.0 - 0.5 K/cumm [facility] Basophil abs 0.1 0.0 - 0.1 K/cumm [facility] Neutrophil pct 67.7 % [facility] Comment: Interpretive Data Percent cell count reference ranges are not reported, since discordance with absolute values may lead to misinterpretation of CBC data. Current Interpretive Data was last revised on 2017. Imm gran pct 0.5 % [facility] Comment: Interpretive Data Percent cell count reference ranges are not reported, since discordance with absolute values may lead to misinterpretation of CBC data. Current Interpretive Data was last revised on 2017. Lymphocyte pct 15.8 % [facility] Comment: Interpretive Data Percent cell count reference ranges are not reported, since discordance with absolute values may lead to misinterpretation of CBC data. Current Interpretive Data was last revised on 2017. Monocyte pct 8.6 % [facility] Comment: Interpretive Data Percent cell count reference ranges are not reported, since discordance with absolute values may lead to misinterpretation of CBC data. Current Interpretive Data was last revised on 2017. Eosinophil pct 6.6 % [facility] Comment: Interpretive Data Percent cell count reference ranges are not reported, since discordance with absolute values may lead to misinterpretation of CBC data. Current Interpretive Data was last revised on 2017. Basophil pct 0.8 % [facility] Comment: Interpretive Data Percent cell count reference ranges are not reported, since discordance with absolute values may lead to misinterpretation of CBC data. Current Interpretive Data was last revised on 2017. Blood specimen (specimen) 2020 9:04 AM CDT 2020 12:43 PM CDT Pepper Morgan MD LAB BLOOD ORDERABLES Final Result Performing Organization Address [facility] Co de Phone Number [facility] [address] [employer] [place] [address] * (ABNORMAL) CBC with auto differential (2020 9:04 AM CDT) Pathologist [facility] WBC 6.2 3.8 - 9.9 K/cumm [facility] CH Hgb 14.1 11.9 - 15.5 g/dL [facility] CH Hct 45.7(H) 35.6 - 45.5 % [facility] Plt 310 150 - 400 K/cumm [facility] CH MPV 9.3 9.1 - 12.3 fL [facility] RBC 5.10 3.90 - 5.20 M/cumm [facility] CH MCV 89.6 81.3 - 96.4 fL [facility] CH MCH 27.6 27.1 - 33.3 pg [facility] CH MCHC 30.9(L) 32.3 - 35.7 g/dL [facility] CH RDW CV 13.4 11.1 - 14.9 % [facility] CH RDW SD 44.2 35.7 - 48.1 fL [facility] NRBC abs 0.00 0.00 - 0.01 K/cumm [facility] CH Blood specimen (specimen) 2020 9:04 AM CDT 2020 12:43 PM CDT us Pepper Morgan MD LAB BLOOD ORDERABLES Final Result Performing Organization Address [facility] Co de Phone Number [facility] [address] of [employer] [place], [place] [id number] * (ABNORMAL) Comprehensive metabolic panel (2020 9:04 AM CDT) Sodium 136 135 - 145 mmol/L [facility] CH Potassium, pl 4.8 3.3 - 4.9 mmol/L [facility] CH Chloride 99 97 - 110 mmol/L [facility] CH CO2 29 22 - 32 mmol/L [facility] CH Anion gap 8 2 - 15 mmol/L [facility] CH BUN 13 8 - 25 mg/dL [facility] CH Creatinine 0.59(L) 0.60 - 1.10 mg/dL [facility] CH Glucose 85 70 - 199 mg/dL [facility] [...] interpretive data was last revised 2017. Calcium 9.1 8.5 - 10.3 mg/dL [facility] CH Bilirubin, total 0.4 0.1 - 1.2 mg/dL [facility] CH Protein, pl 6.8 6.5 - 8.5 g/dL [facility] CH Albumin 3.9 3.5 - 5.0 g/dL [facility] CH Alk phos 114 40 - 130 Units/L [facility] CH ALT 6(L) 7 - 45 Units/L [facility] CH AST 18 10 - 45 Units/L [facility] CH Blood specimen (specimen) 2020 9:04 AM CDT 2020 12:43 PM CDT us Pepper Morgan MD LAB BLOOD ORDERABLES Final Result [facility] [address] Department [place] [address] documented in this encounter Visit Diagnoses Diagnosis 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 Essential hypertension, benign Medication monitoring encounter Encounter for therapeutic drug monitoring documented in this encounter Care Teams Mailroom Clerk Relationship Specialty Start Date End Date Pepper Morgan MD PCP - General 09/16/16 Hank Garibay MD [address] [facility] [address] WARNER [address] [address] Surgeon Orthopedic Surgery 03/27/17 Jacky Murry MD [address] [facility] [address] WARNER [address] [address] Ophthalmology 03/27/17 Puma Mckenzie MD [address] [facility] [address] WARNER [address] [address] Surgeon Orthopedic Surgery 07/11/19 documented as of this encounter
--- OUTSIDE RECORDS SUMMARY | 2024-06-18 19:00 | XMS_ITS | Encounter Summary ---
Author Organization [facility] Address [address] [facility] [address] [place] [address] Care Team Providers Care Umbrella Supervisor Name Role Phone Pepper Morgan MD Primary Care Provider [phone] Hank Garibay MD Unavailable [phone] Jacky Murry MD Unavailable [phone] Puma Mckenzie MD Unavailable [phone] Reason for Referral * Cardiology (Routine) - Closed Specialty Diagnoses / Procedures Referred By Contac t Referred To Contact Diagnoses Shortness of breath Procedures Transthoracic Echo Complete W Doppler/CF Baldev Fuller NP Phone: tel: [address] [address] Referral ID Status Reason Start Date Expiration Date Visits Re quested Visits Authorized [id number] Closed 04/21/2021 05/21/2022 1 1 * Diagnostic Imaging (Routine) - Closed Specialty Diagnoses / Procedures Referred By Contac t Referred To Contact Diagnoses Shortness of breath Procedures XR Chest Pa Lateral 2 Vw Baldev Fuller NP Phone: tel: [facility] Referral ID Status Reason Start Date Expiration Date Visits Re quested Visits Authorized [id number] Closed 04/21/2021 05/21/2022 1 1 Reason for Visit * Reason Comments Shortness of Breath Encounter Details Date Type Department Care Team (Latest Contact Info) Description 04/21/2021 3:00 PM CDT Office Visit [facility] [address] [place] [address] Baldev Fuller NP [address] [place] [address] Shortness of breath (Primary Dx); Atrial fibrillation, unspecified type (HCC); Constipation due to opioid therapy Social History Tobacco Use Types Packs/Day [...] Legal Sex Female 4:33 AM OUTBOUND SALES EXECUTIVE Gender Identity Not on file Sexual Orientation Not on file Occupation Industry Job Start Date Job End Date retired Not on file Not on file Not on file documented as of this encounter Last Filed Vital Signs Vital Sign Reading Time Taken Comments Blood Pressure 122/82 04/21/2021 3:19 PM CDT Pulse 85 04/21/2021 3:19 PM CDT Temperature 36.1 ??C (96.9 ??F) 04/21/2021 3:19 PM CD T Respiratory Rate 12 04/21/2021 3:19 PM CDT Oxygen Saturation 97% 04/21/2021 3:19 PM CDT Inhaled Oxygen Concentration - - Weight 84.4 kg (186 lb) 04/21/2021 3:19 PM CDT Height - - Body Mass Index 36.33 01/08/2021 11:22 AM CDT documented in this encounter Patient Instructions * Patient Instructions* Baldev Fuller NP - 04/21/2021 3:00 PM CDT Orders for AMS STAFF to arrange Please do CXR for shortness of breath Please do BNP for shortness of breath Please arrange 2D echo for shortness of breath Please refer to cardiology for afib and shortness of breath Arrange follow up in 2 weeks Orders for Tess Chente Koo to arrange Please stop you meloxicam as you cannot take it with the blood thinner You can use tylenol for pain-but cannot use advil, aleve, motrin or ibuprofen Begin eliquis 5mg twice a day If you develop any bleeding-cough up blood, nose bleeds or blood in stools call If you would fall and hit your head on the blood thinner go to ER Begin lasix 20mg a day Please call or go to ER with worsening or persistent symptoms No follow-ups on file. Orders Placed This Encounter Procedures ??? ECG 12 lead A brief review of all your problems, medications, and orders from today ICD-9-CM ICD-10-CM 1. Shortness of breath 786.05 R06.02 ECG 12 lead 2. Atrial fibrillation, unspecified type (HCC) 427.31 I48.91 PLEASE BRING IN ALL PILL BOTTLES TO EVERY OFFICE VISIT, THIS IS ESSENTIAL FOR ACCURATE REFILLS AND MAINTAINING AN ACCURATE MEDICATION LIST. documented in this encounter Ordered Prescriptions Prescription Sig Dispense Quantity Refills Last Filled Start Date End Date senna-docusate (Senna-S) 8.6-50 mgIndications:Cons tipation due to opioid therapy Take 1 tablet by mouth daily 90 tablet 1 04/21/2021 12/16/2021 apixaban (ELIQUIS) 5 mg tabletIndications: Atrial fibrillation, unspecified type (HCC) Take 1 tablet (5 mg total) by mouth 2 (two) times a day 60 tablet 1 04/21/2021 05/31/2021 furosemide (LASIX) 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: Shortness of breath,Atrial fibrillation, unspecified type (HCC) Take 1 tablet (20 mg total) by mouth daily 30 tablet 11 04/21/2021 06/02/2021 documented in this encounter Progress Notes * Baldev Fuller, EXCEPTIONAL CHILDREN'S TEACHER - 04/21/2021 3:00 PM CDT Subjective/Objective Patient ID: Tess Koo is a 85 y.o. female. Chief Complaint Shortness of Breath HPI She has had a cough that causing wheezing She had a fall at the end of summer and has been ongoing since She states she can feel SOB at times with the cough Review of Systems Constitutional: Negative for appetite change, chills and fever. HENT: Negative for congestion, ear discharge, ear pain, postnasal drip, sinus pressure and sinus pain. Respiratory: Positive for cough, chest tightness (chest congestion ), shortness of breath and wheezing. Gastrointestinal: Negative for constipation, diarrhea, nausea and vomiting. Genitourinary: Negative for difficulty urinating. Neurological: Negative for dizziness and light-headedness. Physical Exam Vitals and nursing note reviewed. Constitutional: Appearance: Normal appearance. HENT: Head: Normocephalic and atraumatic. Cardiovascular: Rate and Rhythm: Normal rate. Rhythm irregular. Heart sounds: Normal heart sounds. Pulmonary: Effort: Pulmonary effort is normal. Breath sounds: Normal breath sounds. Skin: General: Skin is warm and dry. Neurological: General: No focal deficit present. Mental Status: She is alert and oriented to person, place, and time. Psychiatric: Mood and Affect: Mood normal. Behavior: Behavior normal. Assessment/Plan Diagnoses and all orders for this visit: Shortness of breath (R06.02) (Primary) Assessment & Plan: Patient has persistent cough and shortness of breath, with reported associated wheezing. On exam she does appear to be slightly SOB, oxygen saturation was 97% however, and lungs were clear. We did doEKG to r/o any underlying ischemic cause, EKG shows atrial fibrillation that is rate controlled. Wewill do CXR to r/o any signs of pulmonary vascular congestion. We will also do BNP. We will also do2D echo to look for any signs of LV dysfunction, wall motion abnormality of valvular disturbance inthe setting of afib and shortness of breath. We will add lasix to her regimen to help with cough and shortness of breath. She has had a noted 6lb weight gain since her last visit and concern for volume overload. Cardiology referral will be made. Patient will f/u in 2 weeks or sooner if needed. Orders: - ECG 12 lead - furosemide (LASIX) 20 mg tablet; Take 1 tablet (20 mg total) by mouth daily - XR Chest Pa Lateral 2 Vw; Future - Pro B-type natriuretic peptide; Future - Ambulatory referral to Cardiology; Future - Transthoracic Echo Complete W Doppler/CF; Future - COVID-19 POC Atrial fibrillation, unspecified type (HCC) (I48.91) Assessment & Plan: Patient had EKG completed that showed rate controlled atrial fibrillation. This may be contributingto her symptoms of cough and congestion. She will at this time continue BB for rate control. We will begin anticoagulation with eliquis 5mg BID. She will also be referred to cardiology for further evaluation. Risk/benefits of AC were discussed with patient and understanding verbalized. Orders: - furosemide (LASIX) 20 mg tablet; Take 1 tablet (20 mg total) by mouth daily - apixaban (ELIQUIS) 5 mg tablet; Take 1 tablet (5 mg total) by mouth 2 (two) times a day - Ambulatory referral to Cardiology; Future Constipation due to opioid therapy (K59.03, T40.2X5A) - senna-docusate (Senna-S) 8.6-50 mg; Take 1 tablet by mouth daily Cosigned by Pepper Morgan MD at 04/21/2021 6:37 PM CDT documented in this encounter Procedure Notes * Pepper Morgan MD - 04/21/2021 3:00 PM CDTAssociated Order(s): ECG 12 lead Pre-Procedure Diagnose(s): Shortness of breath Post-Procedure Diagnose(s): Shortness of breath ECG 12 lead Date/Time: 04/21/2021 6:56 PM Performed by: Pepper Morgan MD Authorized by: Baldev Fuller NP Comparison: compared with previous ECG from 07/01/2019 Comparison to previous ECG: EKG changes from previous bradycardia with occasional PACs to new findings of atrial fibrillator with controlled ventricular response Rhythm: atrial fibrillation Rate: normal QRS axis: normal Clinical impression: abnormal ECG Comments: Abnormal EKG with new findings of rate controlled atrial fibrillation documented in this encounter Miscellaneous Notes * Assessment & Plan Note - Baldev Fuller NP - 04/21/2021 3:35 PM CDT Associated Problem(s): Atrial fibrillation (CMS/HCC) (HCC) Patient had EKG completed that showed rate controlled atrial fibrillation. This may be contributingto her symptoms of cough and congestion. She will at this time continue BB for rate control. We will begin anticoagulation with eliquis 5mg BID. She will also be referred to cardiology for further evaluation. Risk/benefits of AC were discussed with patient and understanding verbalized. * Assessment & Plan Note - Baldev Fuller NP - 04/21/2021 3:16 PM CDT Associated Problem(s): Shortness of breath Patient has persistent cough and shortness of breath, with reported associated wheezing. On exam she does appear to be slightly SOB, oxygen saturation was 97% however, and lungs were clear. We did doEKG to r/o any underlying ischemic cause, EKG shows atrial fibrillation that is rate controlled. Wewill do CXR to r/o any signs of pulmonary vascular congestion. We will also do BNP. We will also do2D echo to look for any signs of LV dysfunction, wall motion abnormality of valvular disturbance inthe setting of afib and shortness of breath. We will add lasix to her regimen to help with cough and shortness of breath. She has had a noted 6lb weight gain since her last visit and concern for volume overload. Cardiology referral will be made. Patient will f/u in 2 weeks or sooner if needed. documented in this encounter Plan of Treatment Not on file documented as of this encounter Procedures Procedure Name Priority Date/Time Associated Diagnosis Comments ECG 12-LEAD Routine 04/21/2021 6:56 PM CDT Shortness of breath COVID-19 POC Routine 04/21/2021 4:23 PM CDT Shortness of breath documented in this encounter Results * TRANSTHORACIC ECHO (TTE) COMPLETE W DOPPLER/CF WO CONTRAST (05/11/2021 9:05 AM OUTBOUND SALES EXECUTIVE) Anatomical Region Laterality Modality Ultrasound 05/11/2021 8:30 AM OUTBOUND SALES EXECUTIVE Narrative 05/11/2021 12:26 PM OUTBOUND SALES EXECUTIVE [address] [address] Echocardiogram Report Patient Name: TESS KOO : 1935 Study Date: 05/11/2021 8:30:26 AM Gender: F Tech: GORAN Location: Echo Lab 1 Ref.Provider: BALDEV FULLER Height(Cm): 152 BSA: 1.86 Weight(Kg): 81.6 Quality: Adequate Order Provider: BALDEV FULLER Procedures: Echocardiographic Report: Transthoracic echocardiogram with complete 2D, M-Mode, and color Doppler examination. Indications: Shortness of breath. Measurements: 2D/M Mode ?Doppler ? Measurement ?Value ?Normal Range ? Measurement ?Value ?Normal Range ? EF Teich MM ?48.0 ? [ 55.0 - 70.0 ] percent ?EDUARDO Vmax ? 3.25 ? [ 2.00 - 4.00 ] cm2 ? LVIDd MM ? 4.50 ? [ 3.90 - 5.30 ] cm ? AV Mean PG ? 5 ?[ 2 - 4 ] mmHg ? LVIDs MM ? 3.40 ? [ 2.30 - 3.90 ] cm ? AV Peak Matt ?1.30 ? [ 1.00 - 1.70 ] m/s ? LVPWd MM ? 1.20 ? [ 0.60 - 1.00 ] cm ? AV VTI ? 32.50 ?cm ? IVSd MM ?1.00 ? [ 0.60 - 0.90 ] cm ? LVOT Diam ?2.30 ? [ 1.70 - 2.10 ] cm ? LA Dimension 2D ?4.46 ? [ 2.70 - 3.80 ] cm ? LVOT Peak Matt ?1.02 ? [ 0.70 - 1.10 ] m/s ? AoR Diam MM ?3.17 ? [ 2.60 - 3.70 ] cm ? LVOT VTI ? 21.17 ?[ 20.00 - 30.00 ] cm ? ACS MM ? 1.48 ? cm ? MV E Peak Matt ?1.23 ? [ 0.60 - 1.30 ] m/s ? MV A Peak Matt ?0.09 ? [ 1.00 - 1.20 ] m/s ? MV Mean PG ? 2 ?[ <= 5 ] mmHg ? MV PHT ? 50 ? [ 20 - 100 ] msec ? MVA ?4.40 ? MV Decel Time ?174 ?[ 104 - 258 ] msec ? PV Peak Matt ?0.80 ? [ 0.40 - 0.80 ] m/s ? TR Peak Matt ?2.28 ? [ 1.00 - 2.80 ] m/s ? TR Peak PG ? 21 ? mmHg ? RVSP ? 31.00 ?[ 10.00 - 36.00 ] mmHg ? E' ? 0.08 ? E/E' ? 16.01 ? PA Pressure ?21.00 ?[ 10.00 - 36.00 ] mmHg ? Findings: Atrial Septum: Normal atrial septum. Left Ventricle: Normal left ventricular systolic function with no focal wall motion abnormalities. Normal left ventricular size. Mild concentric left ventricular hypertrophy. Ejection fraction is measured at 68 %. Left Atrium: There is moderate enlargement of left atrium. Right Ventricle: Normal right ventricular size. Normal right ventricular systolic function. Right Atrium: There is moderate enlargement of right atrium. Aortic Valve: Normal structure of the aortic valve. Mitral Valve: Mild mitral valve regurgitation. Pulmonic Valve: Normal structure of the pulmonic [...] Signed By: Stalin Arauz MD 2021-05-11 12:26:05 OUTBOUND SALES EXECUTIVE Procedure Note Stalin Arauz MD - 05/11/[address] [address] Echocardiogram Report Patient Name: TESS KOOPatient ID: [id number] : [id number] Date: 05/11/2021 8:30:26 AM Gender: FAccession #: [id number] Tech: JCLocation: Echo Lab 1 Ref.Provider: BALDEV FULLERHeight(Cm): 152 BSA: 1.86Weight(Kg): 81.6 Quality: AdequateOrder Provider: BALDEV FULLER Procedures: Echocardiographic Report: Transthoracic echocardiogram with complete 2D, M-Mode, and color Dopplerexamination. Indications: Shortness of breath. Measurements: 2D/M Mode Doppler Measurement Value Normal Range MeasurementValue Normal Range EF Teich MM 48.0 [ 55.0 - 70.0 ] percent EDUARDO Vmax3.25 [ 2.00 - 4.00 ] cm2 LVIDd MM 4.50 [ 3.90 - 5.30 ] cm AV Mean PG 5[ 2 - 4 ] mmHg LVIDs MM 3.40 [ 2.30 - 3.90 ] cm AV Peak Vel1.30 [ 1.00 - 1.70 ] m/s LVPWd MM 1.20 [ 0.60 - 1.00 ] cm AV VTI32.50 cm IVSd MM 1.00 [ 0.60 - 0.90 ] cm LVOT Diam2.30 [ 1.70 - 2.10 ] cm LA Dimension 2D 4.46 [ 2.70 - 3.80 ] cm LVOT Peak Vel1.02 [ 0.70 - 1.10 ] m/s AoR Diam MM 3.17 [ 2.60 - 3.70 ] cm LVOT VTI21.17 [ 20.00 - 30.00 ] cm ACS MM 1.48 cm MV E Peak Vel1.23 [ 0.60 - 1.30 ] m/s MV A Peak Vel0.09 [ 1.00 - 1.20 ] m/s MV Mean PG 2[ <= 5 ] mmHg MV PHT 50[ 20 - 100 ] msec MVA4.40 MV Decel Wcss331 [ 104 - 258 ] msec PV Peak Vel0.80 [ 0.40 - 0.80 ] m/s TR Peak Vel2.28 [ 1.00 - 2.80 ] m/s TR Peak PG 21mmHg RVSP31.00 [ 10.00 - 36.00 ] mmHg E'0.08 E/E'16.01 PA Rxconwfu86.00 [ 10.00 - 36.00 ] mmHg Findings: Atrial Septum: Normal atrial septum. Left Ventricle: Normal left ventricular systolic function with no focal wall motionabnormalities. Normal left ventricular size. Mild concentric left ventricular hypertrophy.Ejection fraction is measured at 68 %. Left Atrium: There is moderate enlargement of left atrium. Right Ventricle: Normal right ventricular size. Normal right ventricular systolicfunction. Right Atrium: There is moderate enlargement of right atrium. Aortic Valve: Normal structure of the aortic valve. Mitral Valve: Mild mitral valve regurgitation. Pulmonic Valve: Normal structure of the pulmonic [...] focal wall motionabnormalities. Normal left ventricular size. Mild concentric left ventricular hypertrophy.Ejection fraction is measured at 68 %. There is moderate enlargement of left atrium. There is moderate enlargement of right atrium. Mild mitral valve regurgitation. Normal right ventricular systolic pressure. Estimated peak RVSP is 35mmHg. Mild tricuspid regurgitation. Technically difficult study with suboptimal parasternal views. calcifications in ascending aorta with normal caliber. Electronically Signed By: Stalin Arauz MD 2021-05-11 12:26:05 OUTBOUND SALES EXECUTIVE Baldev Fuller NP CV ECHO PROCEDURES Final Result * (ABNORMAL) ECG 12-LEAD (04/21/2021 6:56 PM CDT) Narrative Pepper Morgan MD - 04/21/2021 6:56 PM CDT Pepper Morgan MD ? 04/21/2021 ??6:57 PM ECG 12 lead Date/Time: 04/21/2021 6:56 PM Performed by: Pepper Morgan MD Authorized by: Baldev Fuller NP Comparison: compared with previous ECG from 07/01/2019 Comparison to previous ECG: EKG changes from previous bradycardia with occasional PACs to new findings of atrial fibrillator with controlled ventricular response Rhythm: atrial fibrillation Rate: normal QRS axis: normal Clinical impression: abnormal ECG Comments: Abnormal EKG with new findings of rate controlled atrial fibrillation Baldev Fuller NP ECG ORDERABLES Ed ited Result - Final * COVID-19 POC (04/21/2021 4:23 PM CDT) COVID-19 Ag POC (BD Veritor) Presumptive Negative Presumptive Negative, Invalid [facility] Comment:lot [id number] exp 12-0 8-21 Nasopharyngeal 04/21/2021 4: 23 PM CDT Baldev Fuller NP POINT OF CARE TEST ORDERABLES Final Result [facility] [address] [place] [address] * XR Chest Pa Lateral 2 Vw (04/21/2021 4:05 PM CDT) Anatomical Region Laterality Modality Body, Chest N/A Computed Radiogr aphy Narrative 04/22/2021 2:13 PM CDT CHEST, 2 VIEWS: PA and lateral views of the chest ??were compared to prior study dated 08 January 2021 . ??There is mild pulmonary emphysema with mild bibasilar scarring. ??No pneumothorax, effusion, or focal consolidation. ??The cardiac and mediastinal structures are of normal size. ??There are moderate degenerative changes of the shoulders and spine. SUMMARY: No radiographic evidence of acute pulmonary disease. 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 Baldev Fuller NP IMG XR PROCEDURES Final Result * (ABNORMAL) Pro B-type natriuretic peptide (04/21/2021 3:56 PM CDT) NT-proBNP 1,905(H) <=450 pg/mL [facility] Comment: Interpretive Comments: [...] 3:56 PM CDT 04/21/2021 8:09 PM CDT Baldev Fuller EXCEPTIONAL CHILDREN'S TEACHER LAB BLOOD ORDERABL ES Final Result [facility] [address] Department [place] [address] documented in this encounter Visit Diagnoses Diagnosis Shortness of breath- Primary Atrial fibrillation, unspecified type (HCC) Constipation due to opioid therapy Shortness of breath Shortness of breath documented in this encounter Discontinued Medications Medication Sig Discontinue Reason Start Date End Da te ascorbic acid (VITAMIN C) 500 mg tablet,chewableIndication s:Vitamin deficiency prevention Take 1 tablet/chew tab (500 mg total) by mouth daily 07/11/2019 04/21/2021 meloxicam (MOBIC) 7.5 mg tabletIndications:Spinal stenosis of lumbar region with neurogenic claudication,Cervical radiculopathy Take 1 tablet (7.5 mg total) by mouth daily With the largest meal 11/30/2020 04/21/2021 Senna-S 8.6-50 mgIndications:Constipatio n due to opioid therapy TAKE 1 TABLET BY MOUTH NIGHTLY Reorder 04/13/2021 04/21/2021 documented as of this encounter Additional Health Concerns Infection Onset Date Last Indicated Resolved Time COVID: Suspected 04/21/2021 04/21/2021 04/21/2021 4:25 PM CDT documented as of this encounter Care Teams Umbrella Supervisor Relationship Specialty Start Date End Date Pepper Morgan MD PCP - General 09/16/16 Hank Garibay MD [address] [facility] [address] [place] [address] Surgeon Orthopedic Surgery 03/27/17 Jacky Murry MD [address] [place] [address] [address] [place] [address] Ophthalmology 03/27/17 Puma Mckenzie MD [address] [place] [address] [address] [place] [address] Surgeon Orthopedic Surgery 07/11/19 documented as of this encounter
--- OUTSIDE RECORDS SUMMARY | 2024-06-18 19:00 | XMS_ITS | Encounter Summary ---
Author Organization [facility] Address [address] [facility] [address] [place] [address] Care Team Providers Care Worm Farm Laborer Name Role Phone Pepper Morgan MD Primary Care Provider + [phone] Hank Garibay MD Unavailable [phone] Jacky Murry MD Unavailable [phone] Puma Mckenzie MD Unavailable [phone] Encounter Details Date Type Department Care Team (Late st Contact Info) Description 04/22/2021 Telephone [facility] [address] [place] [phone] Jacqueline Fuller, SERVICES DELIVERY DRIVER [address] [place] [address] Social History Tobacco Use Types Packs/Day Years [...] on file Legal Sex Female 4:33 AM ATHLETE MANAGER Gender Identity Not on file Sexual Orientation Not on file Occupation Industry Job Start Date Job End Date retired Not on file Not on file Not on file documented as of this encounter Miscellaneous Notes * Telephone Encounter - Luis E Washington RN - 04/22/2021 9:06 AM CDT Informed pt per SERVICES DELIVERY DRIVER Ok to continue with her exercise classes Pt voices understand et has no further questions/concerns @ this time * Telephone Encounter - Jacqueline Fuller NP - 04/22/2021 8:57 AM CDT Yes she can continue with her exercise classes * Telephone Encounter - Luis E Washington RN - 04/22/2021 8:48 AM CDT Spoke to pt et informed of below SERVICES DELIVERY DRIVER message States I am doing ok, I had no pain last night et one coughing spell this morning She took first dose of Lasix this am She did p/u Eliquis Rx last night et was affordable Pt asking if can cont to go to Exercise class twice a week at [place] [employer] [place] States she does upper arm, upper body et leg exercises Please advise * Telephone Encounter - Jacqueline Fuller NP - 04/22/2021 7:54 AM CDT Please call and check on her this morning and see how she is feeling? Let her know that her numbersfor heart failure were elevated, which may be why she is feeling short of breath and coughing-the lasix should help with that if not she needs to call or return sooner. Also, did she get to check on the ramos of the eliquis will it be affordable for her? documented in this encounter Plan of Treatment Not on file documented as of this encounter Visit Diagnoses Not on filedocumented in this encounter Care Teams Worm Farm Laborer Relationship Specialty Start Date End Date Pepper Morgan MD PCP - General 09/16/16 Hank Garibay MD [address] [facility] [address] [place] [address] Surgeon Orthopedic Surgery 03/27/17 Jacky Murry MD [address] [facility] [address] [place] [address] Ophthalmology 03/27/17 Puma Mckenzie MD [address] [facility] [address] [place] [address] Surgeon Orthopedic Surgery 07/11/19 documented as of this encounter
--- OUTSIDE RECORDS SUMMARY | 2024-06-18 19:00 | XMS_ITS | Encounter Summary ---
Author Organization [facility] Address [address] [facility] [facility] [address] [place] [address] Care Team Providers Care Baggage Clerk Name Role Phone Pepper Morgan MD Primary Care Provider [phone] Hank Garibay MD Unavailable [phone] Jacky Murry MD Unavailable [phone] Puma Mckenzie MD Unavailable [phone] Reason for Visit * Diagnostic Imaging (Routine) - Closed Specialty Diagnoses / Procedures Referred By Contac t Referred To Contact Diagnoses Aftercare following right hip joint replacement surgery Procedures XR Hip Right 2 or 3 Views Puma Mckenzie MD Phone: tel: Referral ID Status Reason Start Date Expiration Date Visits Re quested Visits Authorized [id number] Closed 06/23/2020 07/23/2021 1 1 Encounter Details Date Type Department Care Team (Latest Contact Info) Description 06/23/2020 7:10 AM DEPUTY PROBATION OFFICER - 06/23/2020 11:59 PM DEPUTY PROBATION OFFICER Hospital Encounter [facility] Orthopedics and Sports Medicine [address] [facility] [address] [place] [address] Discharge Disposition: Discharge to home [...] on file Legal Sex Female 4:33 AM 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 OFFICER Gender Identity Not on file Sexual Orientation Not on file Occupation Industry Job Start Date Job End Date retired Not on file Not on file Not on file documented as of this encounter Medications at Time of Discharge cholecalciferol (VITAMIN D-3) 2000 unit tablet Take 1 tablet (2,000 Units total) by mouth daily ascorbic acid (VITAMIN C) 500 mg tablet,chewableIndic ations:Vitamin deficiency prevention Take 1 tablet/chew tab (500 mg total) by mouth daily 30 tablet/chew tab 07/11/2019 1 biotin 10,000 mcg capsule Take by mouth [address] (CYMBALTA) 20 mg capsuleIndications:A nxiety with Depression Take 1 capsule (20 mg total) by mouth daily 90 capsule 1 06/01/2020 1 felodipine (PLENDIL) 5 mg 24 hr tabletIndications:Be nign hypertension Take 1 tablet (5 mg total) by mouth daily 90 tablet 1 05/26/2020 1 guaiFENesin 1,200 mg tablet extended release 12hrIndications:Acut e bacterial rhinosinusitis Take 1 tablet by mouth 2 (two) times a day 60 each 1 06/02/2020 1 meloxicam (MOBIC) 7.5 mg tabletIndications: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,Cervica l radiculopathy Take 1 tablet (7.5 mg total) by mouth daily With the largest meal 90 tablet 1 05/26/[address] (PROTONIX) 20 mg EC tabletIndications:Lo ng term (current) use of non-steroidal anti-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s (nsaid) Take 1 tablet (20 mg total) by mouth daily With the largest meal 90 tablet 1 05/26/2020 1 polyethylene glycol (MIRALAX) 17 gram packetIndications:co nstipation Take 1 packet (17 g total) by mouth daily 05/26/2020 2 pramipexole (MIRAPEX) 0.125 mg tabletIndications:Id iopathic Parkinsonism,Restles s Legs Syndrome Take 1 tablet (0.125 mg total) by mouth 2 (two) times a day 180 tablet 1 05/26/2020 1 propranoloL (INDERAL) 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:Be nign hypertension,Heredit elmer essential tremor Take 1 tablet (20 mg total) by mouth 2 (two) times a day 180 tablet 1 05/26/2020 1 senna-docusate (PERICOLACE) 8.6-50 mgIndications:consti pation Take 1 tablet by mouth nightly 90 tablet 1 05/26/2020 1 spironolactone (Aldactone) 25 mg tabletIndications:Be nign hypertension Take 1 tablet (25 mg total) by mouth daily 90 tablet 1 05/26/2020 1 traMADoL (ULTRAM) 50 mg tabletIndications: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,Cervica l radiculopathy Take 0.5-1 tablets (25-50 mg total) by mouth 2 (two) times a day as needed for pain With Tylenol ER 650 at each dosing 60 tablet 5 05/26/2020 1 documented as of this encounter Discharge Disposition Disposition Code Departure Means Destination Discharge to home or self care documented in this encounter Plan of Treatment Not on file documented as of this encounter Procedures Procedure Name Priority Date/Time Associated Diagnosis Comments XR HIP RIGHT 2 OR 3 VIEWS Schedule Routine, Read Routine (OP Routine) 06/23/2020 4:06 PM DEPUTY PROBATION OFFICER Aftercare following right hip joint replacement surgery documented in this encounter Results * XR Hip Right 2 or 3 Views (06/23/2020 4:06 PM DEPUTY PROBATION OFFICER) Anatomical Region Laterality Modality Lower Extremities, Hip, Pelvis Right D igital Radiography Narrative 06/23/2020 4:06 PM DEPUTY PROBATION OFFICER Right total hip arthroplasty in appropriate position with no interval change. ??Advanced left hip osteoarthritis. Puma Mckenzie MD IMG XR PROCEDURES Final Result documented in this encounter Visit Diagnoses Not on filedocumented in this encounter Care Teams Baggage Clerk Relationship Specialty Start Date End Date Pepper Morgan MD PCP - General 09/16/16 Hank Garibay MD [address] [facility] [address] [place] [address] Surgeon Orthopedic Surgery 03/27/17 Jacky Murry MD [address] [place] [address] [address] [place] [address] Ophthalmology 03/27/17 Puma Mckenzie MD [address] [place] [address] [address] [place] [address] Surgeon Orthopedic Surgery 07/11/19 documented as of this encounter
--- OUTSIDE RECORDS SUMMARY | 2024-06-18 19:00 | XMS_ITS | Encounter Summary ---
Author Organization [facility] Address [address] [place] [address] Care Team Providers Care Manpower Development Advisor Name Role Phone Pepper Morgan MD Primary Care Provider [phone] Hank Garibay MD Unavailable [phone] Jacky Murry MD Unavailable [phone] Puma Mckenzie MD Unavailable [phone] Reason for Referral * Diagnostic Imaging (Routine) - Closed Specialty Diagnoses / Procedures Referred By Contac t Referred To Contact Diagnoses Arthritis Procedures FL Fluoro Guided Injection Hip Left Pepper Morgan MD Phone: tel: fax: [address] [phone] Referral ID Status Reason Start Date Expiration Date Visits Re quested Visits Authorized [id number] Closed 11/30/2020 12/30/2021 1 1 Reason for Visit * Diagnostic Imaging (Routine) - Closed Specialty Diagnoses / Procedures Referred By Contac t Referred To Contact Diagnoses Arthritis Procedures FL Fluoro Guided Injection Hip Left Pepper Morgan MD Phone: tel: fax: [address] [phone] Referral ID Status Reason Start Date Expiration Date Visits Re quested Visits Authorized [id number] Closed 11/30/2020 12/30/2021 1 1 Encounter Details Date Type Department Care Team (Late st Contact Info) Description 01/28/2021 8:51 AM CDT - 01/28/2021 11:59 PM CDT Hospital Encounter [facility] [address] [place] [address] Pepper Morgan MD [address] [place] [address] Rad, Amh Breast Arthritis Discharge Disposition: Discharge to home or self [...] on file 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 Gender Identity Not on file Sexual [...] shortness of breath 6.7 g 01/08/2021 2 ascorbic acid (VITAMIN C) 500 mg tablet,chewableIndi cations:Vitamin deficiency prevention Take 1 tablet/chew tab (500 mg total) by mouth daily 30 tablet/chew tab 07/11/2019 1 biotin 10,000 mcg capsule Take by mouth 2 felodipine (PLENDIL) 5 mg 24 hr tabletIndications:B enign hypertension Take 1 tablet (5 mg total) by mouth daily 90 tablet 1 11/30/2020 1 meloxicam (MOBIC) 7.5 mg tabletIndications:S jenni stenosis of lumbar region with neurogenic claudication,Cervic al radiculopathy Take 1 tablet (7.5 mg total) by mouth daily With the largest meal 90 tablet 1 11/30/[address] (PROTONIX) 20 mg EC tabletIndications:L livier term (current) use of non-steroidal anti-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s (nsaid) Take 1 tablet (20 mg total) by mouth daily With the largest meal 90 tablet 1 11/30/2020 1 polyethylene glycol (MIRALAX) 17 gram packetIndications:c onstipation Take 1 packet (17 g total) by mouth daily 05/26/2020 2 pramipexole (MIRAPEX) 0.125 mg tabletIndications:I diopathic Parkinsonism,Restle ss Legs Syndrome Take 1 tablet (0.125 mg total) by mouth 3 (three) times a day 270 tablet 1 11/30/2020 1 propranoloL (INDERAL) 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:H ereditary essential tremor Take 1 tablet (20 mg total) by mouth 2 (two) times a day as needed (Tremor) 180 tablet 1 11/30/2020 1 senna-docusate (PERICOLACE) 8.6-50 mgIndications:const ipation Take 1 tablet by mouth nightly 90 tablet 1 05/26/2020 1 spironolactone (Aldactone) 25 mg tabletIndications:B enign hypertension Take 1 tablet (25 mg total) by mouth daily 90 tablet 1 11/30/2020 1 traMADoL (ULTRAM) 50 mg tabletIndications:S jenni stenosis of lumbar region with neurogenic claudication,Cervic al radiculopathy Take 0.5 tablets (25 mg total) by mouth 2 (two) times a day as needed (Neck and back pain) With Tylenol ER 650 at each dosing 30 tablet 5 11/30/2020 1 documented as of this encounter Discharge Disposition Disposition Code Departure Means Destination Discharge to home or self care documented in this encounter Plan of Treatment Not on file documented as of this encounter Procedures Procedure Name Priority Date/Time Associated Diagnosis Comments FL FLUORO GUIDED INJECTION HIP LEFT Schedule Routine, Read Routine (OP Routine) 01/28/2021 9:41 AM CDT Arthritis documented in this encounter Results * FL Fluoro Guided Injection Hip Left (01/28/2021 9:41 AM CDT) Anatomical Region Laterality Modality Hip Left Radio Fluoroscop y 01/28/2021 11:1 6 AM CDT Narrative 01/28/2021 11:18 AM CDT EXAM DESCRIPTION: ?? FL FLUORO GUIDED INJECTION HIP LEFT REASON FOR STUDY: ?? advanced arthritis ??Arthritis ??Fluoro 0.2 ??MGy ?2.9 ?? FLUOROSCOPY TIME: ?? 0.2 minutes. ??Single fluoroscopic image was obtained. TECHNIQUE: ??Digital images acquired during fluoroscopy and stored on PACS. Needle placement was documented with fluoroscopic images. COMPARISON: ?? None PROCEDURE: ?? After informed consent including the risks, benefits, and alternatives, the patient was placed on the fluoroscopy table. ??The left hip was localized with fluoroscopy. After localization, the left hip was prepped and draped in usual sterile fashion. 1% lidocaine was utilized for local anesthetic. A 22-gauge spinal needle was advanced into the left hip joint from anterior approach. 1 mL of Omnipaque-300 was injected to confirm needle placement within the joint. After confirmation of needle placement, 6 mL of a solution of 5 mL lidocaine and 1 mL Depo-Medrol 80 mg was injected into the joint space under fluoroscopy. Hard copy image was obtained. The patient tolerated the procedure well. IMPRESSION: ??Technically successful fluoroscopic guided left hip steroid injection. THIS IS AN ELECTRONICALLY VERIFIED FINAL REPORT 01/28/2021 11:18 AM - Electronically signed by Rock Jerome D.O. PS: PS D: ??01/28/2021 11:18 AM T: ??01/28/2021 11:18 AM Report ID: [id number] Reading Location: ??[id number] Procedure Note Rock Jerome, DO - 01/28/2021 EXAM DESCRIPTION: FL FLUORO GUIDED INJECTION HIP LEFT REASON FOR STUDY: advanced arthritis Arthritis Fluoro 0.2 MGy 2.9 FLUOROSCOPY TIME: 0.2 minutes. Single fluoroscopic image wasobtained. TECHNIQUE: Digital images acquired during fluoroscopy and stored on PACS. Needle placement was documented with fluoroscopic images. COMPARISON: None PROCEDURE: After informed consent including the risks, benefits, and alternatives, the patient was placed on the fluoroscopy table. The lefthip was localized with fluoroscopy. After localization, the left hip wasprepped and draped in usual sterile fashion. 1% lidocaine was utilized for local anesthetic. A 22-gauge spinal needle was advanced into the left hip jointfrom anterior approach. 1 mL of Omnipaque-300 was injected to confirm needle placement within the joint. After confirmation of needle placement, 6 mLof a solution of 5 mL lidocaine and 1 mL Depo-Medrol 80 mg was injected intothe joint space under fluoroscopy. Hard copy image was obtained. The patient tolerated the procedure well. IMPRESSION: Technically successful fluoroscopic guided left hip steroid injection. THIS IS AN ELECTRONICALLY VERIFIED FINAL REPORT 01/28/2021 11:18 AM - Electronically signed by Rock Jerome D.O. PS: JANICE Report ID: [id number] Reading Location: [id number] Pepper Morgan MD IM FLUOROSCOPY PROCEDURES Final Result documented in this encounter Visit Diagnoses Diagnosis Arthritis Unspecified arthropathy, site unspecified documented in this encounter Administered Medications Inactive Administered Medications - up to 3 most recent administrations Medication Order MAR Action Action Date Dose Rate Site iohexoL (OMNIPAQUE) 240 mg iodine/mL injection solution 10 mL 10 mL, intra-articular, Once in imaging, contrast, Starting on [place] 01/28/21 at 0900, For 1 dose Contrast Given 01/28/2021 9:39 AM CDT 1 mL lidocaine PF (XYLOCAINE) 10 mg/mL (1 %) preservative free injection 300 mg 300 mg (30 mL), subcutaneous, Once, On [place] 01/28/21 at 0945, For 1 dose Given 01/28/2021 9:41 AM CDT 3 mg Left Groin methylPREDNISolone acetate (DEPO-medrol) injection 80 mg 80 mg, intramuscular, Once, On [place] 01/28/21 at 0945, For 1 dose Given 01/28/2021 9:40 AM CDT 80 mg Left Anterior Thigh documented in this encounter Care Teams Manpower Development Advisor Relationship Specialty Start Date End Date Pepper Morgan MD PCP - General 09/16/16 Hank Garibay MD [address] [facility] [address] [place] [address] Surgeon Orthopedic Surgery 03/27/17 Jacky Murry MD [address] [facility] [address] [place] [address] Ophthalmology 03/27/17 Puma Mckenzie MD [address] [facility] [address] [place] [address] Surgeon Orthopedic Surgery 07/11/19 documented as of this encounter
--- OUTSIDE RECORDS SUMMARY | 2024-06-18 19:00 | XMS_ITS | Encounter Summary ---
Author Organization [facility] Address [address] [facility] [address] [place] [address] Care Team Providers Care Pourer Name Role Phone Pepper Morgan MD Primary Care Provider + [phone] Hank Garibay MD Unavailable [phone] Jacky Murry MD Unavailable [phone] Puma Mckenzie MD Unavailable [phone] Encounter Details Date Type Department Care Team (Late st Contact Info) Description 01/08/2021 Telephone [facility] [address] [place] [id number] Jacqueline Fuller, PSYCH THERAPIST [address] [place] [address] Social History Tobacco Use Types Packs/Day Years [...] file 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 Let her know CXR was fine. documented in this encounter Plan of Treatment Not on file documented as of this encounter Visit Diagnoses Not on filedocumented in this encounter Care Teams Pourer Relationship Specialty Start Date End Date Pepper Morgan MD PCP - General 09/16/16 Hank Garibay MD [address] [facility] [address] [place] [address] Surgeon Orthopedic Surgery 03/27/17 Jacky Murry MD [address] [facility] [address] [place] [address] Ophthalmology 03/27/17 Puma Mckenzie MD [address] [place] [address] [address] [place] [address] Surgeon Orthopedic Surgery 07/11/19 documented as of this encounter
--- OUTSIDE RECORDS SUMMARY | 2024-06-18 19:00 | XMS_ITS | Encounter Summary ---
Author Organization [facility] Address [address] [place] [address] Care Team Providers Care Head Resident Name Role Phone Pepper Morgan MD Primary Care Provider + [phone] Hank Garibay MD Unavailable [phone] Jacky Murry MD Unavailable [phone] Puma Mckenzie MD Unavailable [phone] Neha Jackson PT Unavailable Unavailable Stalin Arauz MD Unavailable [phone] Tiffany Rojas Unavailable [phone] Klaus Deshpande MD Unavailable [phone] Andrea Waddell RN Unavailable [phone] Reason for Visit * Reason Onset Date Comments Scheduling Appointments 01/27/2021 confirme d injection Encounter Details Date Type Department Care Team (Late st Contact Info) Description 01/27/2021 Telephone [facility] [address] [place] [address] Chata Benedict RT Scheduling Appointments (confirmed injection) Social History Tobacco Use Types Packs/Day Years [...] on file 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 Gender Identity Not on file Sexual [...] Suspected 04/21/2021 04/21/2021 04/21/2021 4:25 PM CDT COVID: Suspected 10/14/2021 10/14/2021 10/14/2021 1:53 PM CDT COVID: Suspected 02/16/2023 02/16/2023 02/16/2023 8:33 AM CDT COVID: Suspected 06/14/2023 06/14/2023 06/14/2023 6:44 PM CAD DEVELOPER COVID: Suspected 06/24/2023 06/24/2023 06/24/2023 12:46 PM CAD DEVELOPER documented as of this encounter Care Teams Head Resident Relationship Specialty Start Date End Date Pepper Morgan MD PCP - General 09/16/16 Hank Garibay MD [address] [facility] [address] [place] [address] Surgeon Orthopedic Surgery 03/27/17 Jacky Murry MD [address] [facility] [address] [place] [address] Ophthalmology 03/27/17 Puma Mckenzie MD [address] [facility] [address] [place] [address] Surgeon Orthopedic Surgery 07/11/19 Neha Jackson, PT Physical Therapist Physical Therapy 12/01/21 Stalin Arauz MD [address] [facility] [address] [place] [address] Consulting Physician Cardiology 12/08/22 Tiffany Rojas PA [address] [facility] [address] [place] [address] Gastroenterology 12/30/22 Klaus Deshpande MD [address] [facility] [address] [place] [address] Consulting Physician Neurology 06/13/23 Andrea Waddell, XU [address] [place] [address] [address] [place] [address] Middle [employer] Principal 01/11/24 01/14/24 documented as of this encounter
--- OUTSIDE RECORDS SUMMARY | 2024-06-18 19:00 | XMS_ITS | Encounter Summary ---
Author Organization [facility] Address [address] [facility] [address] [place] [address] Care Team Providers Care Vp Global Name Role Phone Pepper Morgan MD Primary Care Provider [phone] Hank Garibay MD Unavailable [phone] Jacky Murry MD Unavailable [phone] Puma Mckenzie MD Unavailable Reason for Visit * Diagnostic Imaging (Routine) - Closed Specialty Diagnoses / Procedures Referred By Contac t Referred To Contact Diagnoses Chest congestion Procedures XR Chest Pa Lateral 2 Vw Jacqueline Fuller NP Phone: tel: [facility] Referral ID Status Reason Start Date Expiration Date Visits Re quested Visits Authorized [id number] Closed 01/08/2021 02/07/2022 1 1 Encounter Details Date Type Department Care Team (Latest Contact Info) Description 01/08/2021 12:00 PM CDT Ancillary Procedure [facility] [address] [place] [id number] Chest congestion Social History Tobacco Use Types [...] file 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 Lungs are clear. ??Heart is not enlarged. ??There are minimal scarring changes. Moderate anterior osteophytes of the spine noted. ??No pneumothorax or effusion seen. Impression: 1. 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 2. No pneumothorax, active infiltrate, effusion, or mass seen. Jacqueline Taylor Alina ENVIRONMENTAL WEB CRAWLER IMG XR PROCEDURES Final Result documented in this encounter Visit Diagnoses Diagnosis Chest congestion Other symptoms involving respiratory system and chest documented in this encounter Care Teams Vp Global Relationship Specialty Start Date End Date Pepper Morgan MD PCP - General 09/16/16 Hank Garibay MD [address] [place] [address] [address] [facility] [address] [place] [address] Surgeon Orthopedic Surgery 03/27/17 Jacky Murry MD [address] [place] [address] [address] [facility] [address] [place] [address] Ophthalmology 03/27/17 Puma Mckenzie MD [address] [facility] [address] [place] [address] Surgeon Orthopedic Surgery 07/11/19 documented as of this encounter
--- OUTSIDE RECORDS SUMMARY | 2024-06-18 19:00 | XMS_ITS | Encounter Summary ---
Author Organization [facility] Address [address] [place] [address] Care Team Providers Care Progressive Care Manager Name Role Phone Pepper Morgan MD Primary Care Provider [phone] Hank Garibay MD Unavailable [phone] Jacky Murry MD Unavailable [phone] Puma Mckenzie MD Unavailable [phone] Reason for Referral * Cardiology (Routine) - Closed Specialty Diagnoses / Procedures Referred By Olga t Referred To Contact Diagnoses Shortness of breath Procedures Transthoracic Echo Complete W Doppler/CF Baldev Fuller NP Phone: tel: [address] [phone] Referral ID Status Reason Start Date Expiration Date Visits Re quested Visits Authorized [id number] Closed 04/21/2021 05/21/2022 1 1 MAKING MACHINE OPERATOR Reason for Visit * Cardiology (Routine) - Closed Specialty Diagnoses / Procedures Referred By Contac t Referred To Contact Diagnoses Shortness of breath Procedures Transthoracic Echo Complete W Doppler/CF Baldev Fuller NP Phone: tel: [address] [phone] Referral ID Status Reason Start Date Expiration Date Visits Re quested Visits Authorized [id number] Closed 04/21/2021 05/21/2022 1 1 Encounter Details Date Type Department Care Team (Late st Contact Info) Description 05/11/2021 8:21 AM COREMAKING MACHINE OPERATOR - 05/11/2021 11:59 PM COREMAKING MACHINE OPERATOR Hospital Encounter [facility] Cardiology [address] [place] [address] Pepper Morgan MD [address] [place] [address] Baldev Fuller, NOEL [address] [place] [address] Shortness of breath Discharge Disposition: Discharge to [...] on file Legal Sex Female 4:33 AM COREMAKING MACHINE OPERATOR Gender Identity Not on file [...] times a day 60 tablet 1 04/21/2021 1 biotin 10,000 mcg capsule Take by mouth 2 felodipine (PLENDIL) 5 mg 24 hr tabletIndications:B enign hypertension Take 1 tablet (5 mg total) by mouth daily 90 tablet 1 11/30/2020 1 furosemide (LASIX) 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:S hortness of breath,Atrial fibrillation, unspecified type (HCC) Take 1 tablet (20 mg total) by mouth daily 30 tablet 11 04/21/[address] (PROTONIX) 20 mg EC [...] (Tremor) 180 tablet 1 11/30/2020 1 senna-docusate (Senna-S) 8.6-50 mgIndications:Const ipation due to [...] at each dosing 30 tablet 5 11/30/2020 documented as of this encounter Discharge Disposition Disposition Code Departure Means Destination Discharge to home or self care documented in this encounter Plan of Treatment Not on file documented as of this encounter Procedures Procedure Name Priority Date/Time Associated Diagnosis Comments TRANSTHORACIC ECHO (TTE) COMPLETE W DOPPLER/CF WO CONTRAST Routine 05/11/2021 9:05 AM COREMAKING MACHINE OPERATOR Shortness of breath documented in this encounter Results * TRANSTHORACIC ECHO (TTE) COMPLETE W DOPPLER/CF WO CONTRAST (05/11/2021 9:05 AM COREMAKING MACHINE OPERATOR) Anatomical Region Laterality Modality Ultrasound 05/11/2021 8:30 AM COREMAKING MACHINE OPERATOR Narrative 05/11/2021 12:26 PM COREMAKING MACHINE OPERATOR [address] [address] Echocardiogram Report Patient Name: TESS KOO : [...] Signed By: Stalin Arauz MD 2021-05-11 12:26:05 COREMAKING MACHINE OPERATOR Procedure Note Stalin Arauz MD - 05/11/[address] [place] [address] Echocardiogram Report Patient Name: TESS KOOPatient ID: [id number] : [id number] Date: 05/11/2021 8:30:26 AM Gender: FAccession #: [id number] Tech: JCLocation: Echo Lab 1 Ref.Provider: BALDEV [...] - 100 ] msec MVA4.40 MV Decel Uexg846 [ 104 - 258 ] msec PV Peak Vel0.80 [ 0.40 - 0.80 ] m/s TR Peak Vel2.28 [ 1.00 - 2.80 ] m/s TR Peak PG 21mmHg RVSP31.00 [ 10.00 - 36.00 ] mmHg E'0.08 E/E'16.01 PA Jtixjuii19.00 [ 10.00 - 36.00 ] mmHg Findings: [...] Signed By: Stalin Arauz MD 2021-05-11 12:26:05 COREMAKING MACHINE OPERATOR Baldev Fuller NP CV ECHO PROCEDURES Final Result documented in this encounter Visit Diagnoses Diagnosis Shortness of breath documented in this encounter Care Teams Progressive Care Manager Relationship Specialty Start Date End Date Pepper Morgan MD PCP - General 09/16/16 Hank Garibay MD [address] [place] [address] [address] [place] [address] Surgeon Orthopedic Surgery 03/27/17 Jacky Murry MD 4 [facility] [address] [place] [address] Ophthalmology 03/27/17 Puma Mckenzie MD 4 [facility] [address] [place] [address] Surgeon Orthopedic Surgery 07/11/19 documented as of this encounter
--- OUTSIDE RECORDS SUMMARY | 2024-06-18 19:00 | XMS_ITS | Encounter Summary ---
Author Organization [facility] Address [address] [facility] [address] [place] [address] Care Team Providers Care Job Change Crew Member Name Role Phone Pepper Morgan MD Primary Care Provider + [phone] Hank Garibay MD Unavailable [phone] Jacky Murry MD Unavailable [phone] Puma Mckenzie MD Unavailable [phone] Reason for Visit * Reason Comments Covid Pt presents to clini c for travel covid testing. 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 Negative exposure to COVID-19. Results for orders placed or performed in visit on 04/20/21 COVID-19 POC Result Value Ref Range COVID-19 Ag POC (BD Veritor) Presumptive Negative Presumptive Negative, Invalid documented in this encounter Plan of Treatment Not on file documented as of this encounter Procedures Procedure Name Priority Date/Time Associated Diagnosis Comments COVID-19 POC Routine 04/20/2021 10:21 AM CDT Encounter for screening for COVID-19 documented in this encounter Results * COVID-19 POC (04/20/2021 10:21 AM CDT) COVID-19 Ag POC (BD Veritor) Presumptive Negative Presumptive Negative, Invalid [facility] [place] Nasal 04/20/2021 10:2 1 AM CDT us Latanya Campuzano CATALOGUE ILLUSTRATOR POINT OF CARE TEST ORDERABLES Final Result [facility] [address] [address] [place] [address] documented in this encounter Visit Diagnoses Diagnosis Encounter for screening for COVID-19- Primary documented in this encounter Care Teams Job Change Crew Member Relationship Specialty Start Date End Date Pepper Morgan MD PCP - General 09/16/16 Hank Garibay MD [address] [place] [address] [address] [place] [id number] Surgeon Orthopedic Surgery 03/27/17 Jacky Murry MD 4 [facility] [address] [place] [address] Ophthalmology 03/27/17 Puma Mckenzie MD [address] [facility] [address] [place] [address] Surgeon Orthopedic Surgery 07/11/19 documented as of this encounter
--- OUTSIDE RECORDS SUMMARY | 2024-06-18 19:00 | XMS_ITS | Encounter Summary ---
Author Organization [facility] Address [address] [facility] [address] [place] [address] Care Team Providers Care Fitness Assistant Name Role Phone Pepper Morgan MD Primary Care Provider + [phone] Hank Garibay MD Unavailable [phone] Jacky Murry MD Unavailable [phone] Puma Mckenzie MD Unavailable [phone] Encounter Details Date Type Department Care Team (Late st Contact Info) Description 09/25/2020 Telephone [facility] [address] [place] [id number] Pepper Morgan MD [address] [place] [address] Social History Tobacco Use Types Packs/Day Years [...] file Legal Sex Female 4:33 AM TECHNICAL SOLUTIONS DIRECTOR Gender Identity Not on file Sexual Orientation Not on file Occupation Industry Job Start Date Job End Date retired Not on file Not on file Not on file documented as of this encounter Miscellaneous Notes * Telephone Encounter - Lacie Alicea MA - 09/25/2020 2:39 PM CDT Patient was call request in with old script number I have called and left vm for patient that the pharmacy will have script ready for patient .dcoers senior designer * Telephone Encounter - Eri Owens - 09/25/2020 12:34 PM CDT Pt needs a refill on Meloxicam 7.5 mg A 3 month supply nash pearson documented in this encounter Plan of Treatment Not on file documented as of this encounter Visit Diagnoses Not on filedocumented in this encounter Care Teams Fitness Assistant Relationship Specialty Start Date End Date Pepper Morgan MD PCP - General 09/16/16 Hank Garibay MD [address] [facility] [address] [place] [address] Surgeon Orthopedic Surgery 03/27/17 Jacky uMrry MD [address] [facility] [address] [place] [address] Ophthalmology 03/27/17 Puma Mckenzie MD [address] [facility] [address] [place] [address] Surgeon Orthopedic Surgery 07/11/19 documented as of this encounter
--- OUTSIDE RECORDS SUMMARY | 2024-06-18 19:00 | XMS_ITS | Encounter Summary ---
Author Organization [facility] Address [address] [facility] [address] [place] [address] Care Team Providers Care Rail Car Maintenance Mechanic Name Role Phone Pepper Morgan MD Primary Care Provider + [phone] Hank Garibay MD Unavailable [phone] Jacky Murry MD Unavailable [phone] Puma Mckenzie MD Unavailable [phone] Encounter Details Date Type Department Care Team (Late st Contact Info) Description 07/16/2020 Telephone [facility] [address] [place] [phone] Pepper Morgan MD [address] [address] Social History Tobacco Use Types Packs/Day Years [...] 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 OF PUBLICATIONS Gender Identity Not on file Sexual Orientation Not on file Occupation Industry Job Start Date Job End Date retired Not on file Not on file Not on file documented as of this encounter Miscellaneous Notes * Telephone Encounter - Milana Fuentes RN - 07/16/2020 9:09 AM CST Called and informed pt that dr morgan is recommending the vaccine Pt verbalized understanding and will call us back with any questions or problems CTOR OF PUBLICATIONS * Telephone Encounter - Eri Owens - 07/16/2020 8:42 AM CST n#[phone] patient Pt would like to get the covid-19 vacc. but is worried because she has some allergies. Pt wants to know if thinks she would be okay if she gets it. CTOR OF PUBLICATIONS documented in this encounter Plan of Treatment Not on file documented as of this encounter Visit Diagnoses Not on filedocumented in this encounter Care Teams Rail Car Maintenance Mechanic Relationship Specialty Start Date End Date Pepper Morgan MD PCP - General 09/16/16 Hank Garibay MD [address] [facility] [address] [place] [address] Surgeon Orthopedic Surgery 03/27/17 Jacky Murry MD [address] [facility] [address] [place] [address] Ophthalmology 03/27/17 Puma Mckenzie MD [address] [facility] [address] [place] [address] Surgeon Orthopedic Surgery 07/11/19 documented as of this encounter
--- OUTSIDE RECORDS SUMMARY | 2024-06-18 19:00 | XMS_ITS | Encounter Summary ---
Author Organization [facility] Address [address] [facility] [address] [place] [address] Care Team Providers Care Head Teacher Name Role Phone Pepper Morgan MD Primary Care Provider [phone] Hank Garibay MD Unavailable [phone] Jacky Murry MD Unavailable [phone] Puma Mckenzie MD Unavailable [phone] Reason for Referral * Diagnostic Imaging (Routine) - Closed Specialty Diagnoses / Procedures Referred By Contnahun t Referred To Contact Diagnoses Chest congestion Procedures XR Chest Pa Lateral 2 Vw Jacqueline Fuller NP Phone: tel: [facility] Referral ID Status Reason Start Date Expiration Date Visits Re quested Visits Authorized [id number] Closed 01/08/2021 02/07/2022 1 1 Reason for Visit * Reason Comments Cough Encounter Details Date Type Department Care Team (Latest Contact Info) Description 01/08/2021 11:30 AM CDT Office Visit [facility] [address] [place] [phone] Jacqueline Fuller NP [address] [place] [address] Chest congestion (Primary Dx) Social History Tobacco Use Types [...] on file Legal Sex Female 4:33 AM INNOVATION MANAGER Gender Identity Not on file Sexual Orientation Not on file Occupation Industry Job Start Date Job End Date retired Not on file Not on file Not on file documented as of this encounter Last Filed Vital Signs Vital Sign Reading Time Taken Comments Blood Pressure 116/74 01/08/2021 11:22 AM CDT Pulse 59 01/08/2021 11:22 AM CDT Temperature 36.3 ??C (97.4 ??F) 01/08/2021 11:22 AM C DT Respiratory Rate 16 01/08/2021 11:22 AM CDT Oxygen Saturation 97% 01/08/2021 11:22 AM CDT Inhaled Oxygen Concentration - - Weight 81.6 kg (180 lb) 01/08/2021 11:22 AM CDT Height 152.4 cm (5') 01/08/2021 11:22 AM CDT Body Mass Index 35.15 01/08/2021 11:22 AM CDT documented in this encounter Patient Instructions * Patient Instructions* Jacqueline Fuller NP - 01/08/2021 11:30 AM CDT Instructions to electrician front Please do CXR for chest congestion Please do CBC and BMP for chest congestion Instructions to patient Please continue the mucinex Increase the water intake You can use the albuterol inhaler every 6 hours as needed for cough or congestion You can continue with tylenol for pain Continue to try to take deep breaths in Call or go to ER with any worsening or persistent symptoms documented in this encounter Ordered Prescriptions Prescription Sig Dispense Quantity Refills Last Filled Start Date End Date albuterol HFA (Proventil HFA) 90 mcg/actuation inhalerIndications :Chest congestion Inhale 2 puffs every 6 (six) hours as needed for wheezing or shortness of breath 6.7 g 01/08/2021 2 documented in this encounter Progress Notes * Jacqueline Fuller NP - 01/08/2021 11:30 AM CDT Subjective/Objective Patient ID: Tess Benedict is a 85 y.o. female. Chief Complaint Cough HPI She feel a week ago while carrying a box. She bruised her left breast. She had trouble taking deep breaths d/t the pain. She now has some congestion in chest with cough and is concerned. Review of Systems Constitutional: Negative for appetite change, chills and fever. HENT: Negative for congestion, ear discharge, ear pain, postnasal drip, rhinorrhea, sinus pressure and sinus pain. Respiratory: Positive for cough, chest tightness and shortness of breath. Cardiovascular: Negative for chest pain and palpitations. Gastrointestinal: Negative for diarrhea, nausea and vomiting. Genitourinary: Negative for [...] Diagnoses and all orders for this visit: Chest congestion (R09.89) (Primary) Assessment & Plan: Patient is reporting issues with cough and [...] fall we will do repeat CXR to r/oany signs of pneumonia. We will also do [...] ER with any worsening or persistent symptoms. Orders: - albuterol HFA (Proventil HFA) 90 mcg/actuation inhaler; Inhale 2 puffs every 6 (six) hours as needed for wheezing or shortness of breath - XR Chest Pa Lateral 2 Vw; Future - CBC with auto differential; Future - Basic metabolic panel; Future Cosigned by Pepper Morgan MD at 01/08/2021 1:19 PM CDT documented in this encounter Miscellaneous Notes * Assessment & Plan Note - Jacqueline Fuller NP - 01/08/2021 11:44 AM CDT Associated Problem(s): Chest congestion (Resolved 06/01/2021) Patient is reporting issues with cough and [...] fall we will do repeat CXR to r/oany signs of pneumonia. We will also do [...] ER with any worsening or persistent symptoms. documented in this encounter Plan of Treatment Not on file documented as of this encounter Results * XR Chest Pa [...] active infiltrate, effusion, or mass seen. Jacqueline Fuller RESERVATIONS MANAGER IMG XR PROCEDURES Final Result * (ABNORMAL) Basic metabolic panel (01/08/2021 11:57 AM CDT) Sodium 133(L) 135 - 145 mmol/L [facility] Potassium, pl 4.7 3.3 - 4.9 mmol/L [facility] Chloride 97 97 - 110 mmol/L [facility] CO2 26 22 - 32 mmol/L [facility] Anion gap 10 2 - 15 mmol/L [facility] BUN 13 8 - 25 mg/dL [facility] Creatinine 0.58(L) 0.60 - 1.10 mg/dL [facility] Glucose 80 70 - 199 mg/dL [facility] Comment: [...] Calcium 9.2 8.5 - 10.3 mg/dL [facility] Blood specimen (specimen) 01/08/2021 11:57 AM CDT 01/08/2021 4:49 PM CDT Jacqueline Fuller NP LAB BLOOD ORDERABL ES Final Result [facility] [address] Department [place] [address] * (ABNORMAL) CBC with auto differential (01/08/2021 11:57 AM CDT) WBC 7.6 3.8 - 9.9 K/cumm [facility] Hgb 14.3 11.9 - 15.5 g/dL [facility] Hct 45.8(H) 35.6 - 45.5 % [facility] Plt 370 150 - 400 K/cumm [facility] MPV 9.5 9.1 - 12.3 fL [facility] RBC 5.05 3.90 - 5.20 M/cumm [facility] MCV 90.7 81.3 - 96.4 fL [facility] MCH 28.3 27.1 - 33.3 pg [facility] MCHC 31.2(L) 32.3 - 35.7 g/dL [facility] RDW CV 13.8 11.1 - 14.9 % [facility] RDW SD 46.2 35.7 - 48.1 fL [facility] NRBC abs 0.00 0.00 - 0.01 K/cumm [facility] Blood specimen (specimen) 01/08/2021 11:57 AM CDT 01/08/2021 4:49 PM CDT Jacqueline Claudia Ventimiglia RESERVATIONS MANAGER LAB BLOOD ORDERABL ES Final Result [facility] [address] Department [place] [address] documented in this encounter Visit Diagnoses Diagnosis Chest congestion- Primary Other symptoms involving respiratory system and chest Chest congestion Other symptoms involving respiratory system and chest documented in this encounter Care Teams Head Teacher Relationship Specialty Start Date End Date Pepper Morgan MD PCP - General 09/16/16 Hank Garibay MD 4 [facility] [address] [place] [address] Surgeon Orthopedic Surgery 03/27/17 Jacky Murry MD 4 [facility] [address] [place] [address] Ophthalmology 03/27/17 Puma Mckenzie MD 4 [facility] [address] [place] [address] Surgeon Orthopedic Surgery 07/11/19 documented as of this encounter
--- OUTSIDE RECORDS SUMMARY | 2024-06-18 19:00 | XMS_ITS | Encounter Summary ---
Author Organization [facility] Address [address] [facility] [address] [place] [address] Care Team Providers Care Netbackup Engineer Name Role Phone Pepper Morgan MD Primary Care Provider + [phone] Hank Garibay MD Unavailable [phone] Jacky Murry MD Unavailable [phone] Puma Mckenzie MD Unavailable [phone] Encounter Details Date Type Department Care Team (Late st Contact Info) Description 12/08/2020 Telephone [facility] [address] [place] [phone] Pepper Morgan MD [address] [place] [address] Social History Tobacco Use Types Packs/Day Years [...] on file Legal Sex Female 4:33 AM SHORE MAN Gender Identity Not on file Sexual Orientation Not on file Occupation Industry Job Start Date Job End Date retired Not on file Not on file Not on file documented as of this encounter Miscellaneous Notes * Telephone Encounter - Milana Fuentes RN - 12/08/2020 11:39 AM CDT Called and spoke with the pt Informed her that her thyroid testing was normal Pt verbalized understanding and will call us back with any question or problems * Telephone Encounter - Lacie Alicea MA - 12/08/2020 8:08 AM CDT ----- Message from Tess Benedict sent at 12/08/2020 6:19 AM CDT ----- Regarding: Test Results Question Contact: Is this normal? documented in this encounter Plan of Treatment Not on file documented as of this encounter Visit Diagnoses Not on filedocumented in this encounter Care Teams Netbackup Engineer Relationship Specialty Start Date End Date Pepper Morgan MD PCP - General 09/16/16 Hank Garibay MD [address] [facility] [address] [place] [address] Surgeon Orthopedic Surgery 03/27/17 Jacky Murry MD [address] [facility] [address] [place] [address] Ophthalmology 03/27/17 Puma Mckenzie MD [address] [facility] [address] [place] [address] Surgeon Orthopedic Surgery 07/11/19 documented as of this encounter
--- OUTSIDE RECORDS SUMMARY | 2024-06-18 19:00 | XMS_ITS | Encounter Summary ---
Author Organization [facility] Address [address] [facility] [address] [place] [address] Care Team Providers Care Butter Maker Name Role Phone Pepper Morgan MD Primary Care Provider + [phone] Hank Garibay MD Unavailable [phone] Jacky Murry MD Unavailable [phone] Puma Mckenzie MD Unavailable [phone] Encounter Details Date Type Department Care Team (Late st Contact Info) Description 04/22/2021 Telephone [facility] [address] [place] [phone] Pepper Morgan MD [address] [place] [address] Social History Tobacco Use Types Packs/Day Years [...] on file Legal Sex 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 Also that Dr Cedillo office should be calling her to schedule cardiology appt. * Telephone Encounter - Theresa Rolon - 04/22/2021 11:48 AM CDT LMOM this morning for pt to return call to notify when her 2D echo is scheduled for at [facility]. documented in this encounter Plan of Treatment Not on file documented as of this encounter Visit Diagnoses Not on filedocumented in this encounter Care Teams Butter Maker Relationship Specialty Start Date End Date Pepper Morgan MD PCP - General 09/16/16 Hank Garibay MD [address] [facility] [address] [place] [address] Surgeon Orthopedic Surgery 03/27/17 Jacky Murry MD [address] [facility] [address] [place] [address] Ophthalmology 03/27/17 Puma Mckenzie MD [address] [facility] [address] [place] [address] Surgeon Orthopedic Surgery 07/11/19 documented as of this encounter
--- OUTSIDE RECORDS SUMMARY | 2024-06-18 19:00 | XMS_ITS | Encounter Summary ---
Author Organization [facility] Address [address] [facility] [address] [place] [address] Care Team Providers Care Shuttle Filler Name Role Phone Pepper Morgan MD Primary Care Provider + [phone] Hank Garibay MD Unavailable [phone] Jacky Murry MD Unavailable [phone] Puma Mckenzie MD Unavailable [phone] Encounter Details Date Type Department Care Team (Late st Contact Info) Description 06/15/2020 Telephone [facility] [address] [place] [id number] Pepper Morgan MD [address] [place] [address] Social History Tobacco Use Types Packs/Day Years [...] on file Legal Sex Female 4:33 AM 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 Please place all of these medications that she has not tolerated on her allergy list as intolerance and put the side effects in the information box for future reference ROOM PRESS OPERATOR * Telephone Encounter - Vickie Araujo - 06/15/2020 9:47 AM CST Was put on a new parkinsons medication and for the last two night she has had nightmares. She isnt taking it anymore. She slept 9 hours last night since she didn't take it. She is just going to stay on pramipexole. She takes it earlier at night and it seems to be helping. Cbn: [phone] ROOM PRESS OPERATOR documented in this encounter Plan of Treatment Not on file documented as of this encounter Visit Diagnoses Not on filedocumented in this encounter Discontinued Medications Medication Sig Discontinue Reason Start Date End Da te carbidopa-levodopa CR (SINEMET CR) 50-200 mg per CR tabletIndications:Jaida garcia Take 1 tablet by mouth nightly Allergic response 06/04/2020 06/15/2020 documented as of this encounter Additional Health Concerns Infection Onset Date Last Indicated Resolved Time COVID: Suspected 06/01/2020 06/01/2020 06/15/2020 3:07 AM MUSHROOM PRESS OPERATOR documented as of this encounter Care Teams Shuttle Filler Relationship Specialty Start Date End Date Pepper Morgan MD PCP - General 09/16/16 Hank Garibay MD [address] [facility] [address] [place] [address] Surgeon Orthopedic Surgery 03/27/17 Jacky Murry MD [address] [facility] [address] [place] [address] Ophthalmology 03/27/17 Puma Mckenzie MD [address] [facility] [address] [place] [address] Surgeon Orthopedic Surgery 07/11/19 documented as of this encounter
--- OUTSIDE RECORDS SUMMARY | 2024-06-18 19:00 | XMS_ITS | Encounter Summary ---
Author Organization [facility] Address [address] [facility] [address] [place] [address] Care Team Providers Care Explosive Ordnance Technician Name Role Phone Pepper Morgan MD Primary Care Provider + [phone] Hank Garibay MD Unavailable [phone] Jacky Murry MD Unavailable [phone] Puma Mckenzie MD Unavailable [phone] Encounter Details Date Type Department Care Team (Late st Contact Info) Description 04/21/2021 4:00 PM CDT Lab [facility] [address] [place] [phone] Shortness of breath Social History Tobacco Use [...] on file 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 Gender Identity Not on file Sexual Orientation Not on file Occupation Industry Job Start Date Job End Date retired Not on file Not on file Not on file documented as of this encounter Plan of Treatment Not on file documented as of this encounter Visit Diagnoses Diagnosis Shortness of breath documented in this encounter Care Teams Explosive Ordnance Technician Relationship Specialty Start Date End Date Pepper Morgan MD PCP - General 09/16/16 Hank Garibay MD [address] [facility] [address] [place] [address] Surgeon Orthopedic Surgery 03/27/17 Jacky Murry MD [address] [facility] [address] [place] [address] Ophthalmology 03/27/17 Puma Mckenzie MD [address] [facility] [address] [place] [address] Surgeon Orthopedic Surgery 07/11/19 documented as of this encounter
--- OUTSIDE RECORDS SUMMARY | 2024-06-18 19:00 | XMS_ITS | Encounter Summary ---
Author Organization [facility] Address [address] [facility] [address] [place] [address] Care Team Providers Care Piping Manager Name Role Phone Pepper Morgan MD Primary Care Provider [phone] Hank Garibay MD Unavailable [phone] Jacky Murry MD Unavailable [phone] Puma Mckenzie MD Unavailable [phone] Reason for Visit * Diagnostic Imaging (Routine) - Closed Specialty Diagnoses / Procedures Referred By Contac t Referred To Contact Diagnoses Shortness of breath Procedures XR Chest Pa Lateral 2 Vw EvermiJacqueline lo NP Phone: tel: [facility] Referral ID Status Reason Start Date Expiration Date Visits Re quested Visits Authorized [id number] Closed 04/21/2021 05/21/2022 1 1 Encounter Details Date Type Department Care Team (Latest Contact Info) Description 04/21/2021 4:30 PM CDT Ancillary Procedure [facility] [address] [place] [phone] Shortness of breath Social History Tobacco Use [...] on file 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 Jacqueline Fuller HYDRODYNAMICIST IMG XR PROCEDURES Final Result documented in this encounter Visit Diagnoses Diagnosis Shortness of breath documented in this encounter Care Teams Piping Manager Relationship Specialty Start Date End Date Pepper Morgan MD PCP - General 09/16/16 Hank Garibay MD [address] [place] [address] [address] [address] Surgeon Orthopedic Surgery 03/27/17 Jacky Murry MD [address] [facility] [address] [place] [address] Ophthalmology 03/27/17 Puma Mckenzie MD [address] [facility] [address] [place] [address] Surgeon Orthopedic Surgery 07/11/19 documented as of this encounter
--- OUTSIDE RECORDS SUMMARY | 2024-06-18 19:00 | XMS_ITS | Encounter Summary ---
Author Organization [facility] Address [address] [facility] [address] [place] [address] Care Team Providers Care Salon Sales Consultant Name Role Phone Pepper Morgan MD Primary Care Provider + [phone] Hank Garibay MD Unavailable [phone] Jacky Murry MD Unavailable [phone] Puma Mckenzie MD Unavailable [phone] Encounter Details Date Type Department Care Team (Late st Contact Info) Description 01/08/2021 11:50 AM CDT [facility] [address] [place] [phone] Chest congestion Social History Tobacco Use Types [...] 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 [address] [place] [address] Surgeon Orthopedic Surgery 03/27/17 Jacky Murry MD [address] [facility] [address] [place] [address] Ophthalmology 03/27/17 Puma Mckenzie MD [address] [facility] [address] [place] [address] Surgeon Orthopedic Surgery 07/11/19 documented as of this encounter
--- OUTSIDE RECORDS SUMMARY | 2024-06-18 19:00 | XMS_ITS | Encounter Summary ---
Author Organization [facility] Address [address] [facility] [address] [place] [address] Care Team Providers Care Gas Pumping Station Supervisor Name Role Phone Pepper Morgan MD Primary Care Provider + [phone] Hank Garibay MD Unavailable [phone] Jacky Murry MD Unavailable [phone] Puma Mckenzie MD Unavailable [phone] Encounter Details Date Type Department Care Team (Late st Contact Info) Description 11/30/2020 12:20 PM CDT Lab [facility] [address] [place] [phone] Tiredness Social History Tobacco Use Types Packs/Day [...] on file 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 Gender Identity Not on file Sexual Orientation Not on file Occupation Industry Job Start Date Job End Date retired Not on file Not on file Not on file documented as of this encounter Plan of Treatment Not on file documented as of this encounter Visit Diagnoses Diagnosis Tiredness Other malaise and fatigue documented in this encounter Care Teams Gas Pumping Station Supervisor Relationship Specialty Start Date End Date Pepper Morgan MD PCP - General 09/16/16 Hank Garibay MD [address] [facility] [address] [place] [address] Surgeon Orthopedic Surgery 03/27/17 Jacky Murry MD [address] [facility] [address] [place] [address] Ophthalmology 03/27/17 Puma Mckenzie MD [address] [facility] [address] [place] [address] Surgeon Orthopedic Surgery 07/11/19 documented as of this encounter
--- OUTSIDE RECORDS SUMMARY | 2024-06-18 19:00 | XMS_ITS | Encounter Summary ---
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 Gender Identity Not on file Sexual Orientation Not on file Occupation Industry Job Start Date Job End Date retired Not on file Not on file Not on file documented as of this encounter Plan of Treatment Not on file documented as of this encounter Procedures Procedure Name Priority Date/Time Associated Diagnosis Comments SCAN - LABS 04/21/2021 documented in this encounter Results * SCAN - LABS (04/21/2021) us Provider Scanning Final Result documented in this encounter Visit Diagnoses Not on filedocumented in this encounter Additional Health Concerns Infection Onset Date Last Indicated Resolved Time COVID: Suspected 04/21/2021 04/21/2021 04/21/2021 4:25 PM CDT documented as of this encounter Care Teams Harvesting Supervisor Relationship Specialty Start Date End Date Pepper Morgan MD PCP - General 09/16/16 Hank Garibay MD [address] [facility] [address] [place] [address] Surgeon Orthopedic Surgery 03/27/17 Jacky Murry MD [address] [facility] [address] [place] [address] Ophthalmology 03/27/17 Puma Mckenzie MD [address] [facility] [address] [place] [address] Surgeon Orthopedic Surgery 07/11/19 documented as of this encounter
--- OUTSIDE RECORDS SUMMARY | 2024-06-18 19:00 | XMS_ITS | Encounter Summary ---
Author Organization [facility] Medical [facility] Address [address] [facility] [address] [place] [id number] Care Team Providers Care Marketing Sales Manager Name Role Phone Pepper Mrogan MD Primary Care Provider [phone] Hank Garibay MD Unavailable [phone] Jacky Murry MD Unavailable [phone] Puma Mckenzie MD Unavailable [phone] Reason for Referral * Diagnostic Imaging (Routine) - Closed Specialty Diagnoses / Procedures Referred By Contac t Referred To Contact Diagnoses Arthritis Procedures FL Fluoro Guided Injection Hip Left Pepper Morgan MD Phone: tel: fax: [address] [phone] Referral ID Status Reason Start Date Expiration Date Visits Re quested Visits Authorized [id number] Closed 11/30/2020 12/30/2021 1 1 Reason for Visit * Reason Comments Follow-up 6 month Encounter Details Date Type Department Care Team (Late st Contact Info) Description 11/30/2020 10:20 AM CDT Office Visit [facility] [address] [place] [phone] Pepper Morgan MD [address] [place] [address] Parkinson's disease (tremor, stiffness, slow motion, unstable posture) (CMS/HCC) (Primary Dx); Hereditary essential tremor; Tiredness; Restless legs syndrome; 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; Spinal stenosis of lumbar region with neurogenic claudication; Cervical radiculopathy; 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 s (nsaid); Sinus bradycardia; Arthritis Social History Tobacco Use Types Packs/Day Years [...] on file Legal Sex 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 Gender Identity Not on file Sexual Orientation Not on file Occupation Industry Job Start Date Job End Date retired Not on file Not on file Not on file documented as of this encounter Last Filed Vital Signs Vital Sign Reading Time Taken Comments Blood Pressure 150/70 11/30/2020 10:34 AM CDT Pulse 49 11/30/2020 10:34 AM CDT Temperature 37 ??C (98.6 ??F) 11/30/2020 10:34 AM CDT Respiratory Rate 12 11/30/2020 10:34 AM CDT Oxygen Saturation 97% 11/30/2020 10:34 AM CDT Inhaled Oxygen Concentration - - Weight 80.3 kg (177 lb) 11/30/2020 10:34 AM CDT Height - - Body Mass Index 34.57 06/23/2020 8:57 AM HOUSE BUILDER documented in this encounter Patient Instructions * Patient Instructions* Pepper Morgan MD - 11/30/2020 10:20 AM CDT ORDERS FOR AMS STAFF TO ARRANGE 1. Labs today = free T4 TSH diagnosis = tiredness 2. Labs for six-month follow-up = LDL, chemistry panel, CBC diagnosis = 3. Refer the [facility] radiology Medrol 80 mg left hip injection diagnosis =advanced arthritis ORDERS FOR Tess Chente Benedict TO ARRANGE 1. Medication changes The tiredness issue: Cymbalta can be causing this, propranolol can be causing this--we are going tostop the Cymbalta and make the propranolol just twice daily if you feel like you needed for the tremor -Stop Cymbalta 20 mg every morning, this [...] football shaped easy to crack in half Advanced arthritis left hip Consider for hip replacement in the fall and winter--we are going to do a cortisone shot now for your pain --begin using a cane in the right hand when he walked to stabilize in case the hip is unstable Patient Care Team: Pepper Morgan MD as PCP - General [facility], Hank Mccauley MD as Surgeon (Orthopedic Surgery) Jacky Murry MD (Ophthalmology) Puma Mckenzie MD as Surgeon (Orthopedic Surgery) Return in about 6 months (around 06/01/2021) for Annual physical, Recheck. Orders Placed This Encounter Procedures ??? FL Fluoro Guided Injection Hip Left ??? T4, free ??? TSH ??? Cholesterol, LDL, direct ??? Comprehensive metabolic panel ??? CBC with auto differential A brief review of all your problems, medications, and orders from today ICD-9-CM ICD-10-CM 1. Parkinson's disease (tremor, stiffness, slow motion, unstable posture) (CMS/HCC) 332.0 G20 pramipexole (MIRAPEX) 0.125 mg tablet 2. Hereditary essential tremor 333.1 G25.0 propranoloL (INDERAL) 20 mg tablet 3. Tiredness 780.79 R53.83 T4, free TSH 4. Restless legs syndrome 333.94 G25.81 pramipexole (MIRAPEX) 0.125 mg tablet 5. 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 401.1 I10 spironolactone (Aldactone) 25 mg tablet felodipine (PLENDIL) 5 mg 24 hr tablet Cholesterol, LDL, direct Comprehensive metabolic panel CBC with auto differential 6. Spinal stenosis of lumbar region with neurogenic claudication 724.03 M48.062 traMADoL (ULTRAM) 50 mg tablet meloxicam (MOBIC) 7.5 mg tablet 7. Cervical radiculopathy 723.4 M54.12 traMADoL (ULTRAM) 50 mg tablet meloxicam (MOBIC) 7.5 mg tablet 8. care home (current) use of non-steroidal anti-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s (nsaid) V58.[address] (PROTONIX) 20 mg EC tablet 9. Sinus bradycardia 427.89 R00.1 10. Arthritis 716.90 M19.90 FL Fluoro Guided Injection Hip Left For your records I have provided this immunization report Immunization History Administered Date(s) Administered ??? Influenza, Quadrivalent, High Dose, Preservative Free, Intrr 03/31/2020 ??? Influenza, Quadrivalent, Split, Intramuscular 03/28/2016, 04/04/2017 ??? Influenza, Split 05/18/2012 ??? Influenza, Trivalent, Adjuvanted, Intramuscular 04/17/2019 ??? Influenza, Trivalent, High Dose, Split, Preservative Free, Intramuscular 03/23/2015, 03/12/2018, 04/17/2019 ??? Influenza, Trivalent, Intramuscular 03/25/2014, 04/17/2015 ??? Influenza, Unspecified 03/13/2018 ??? Pfizer SARS-CoV-2 Vaccination 08/15/2020, 09/06/2020 ??? Pneumococcal Conjugate PCV 13 02/18/2015 ??? Pneumococcal Polysaccharide PPV23 05/17/2002, 04/26/2016 ??? Tdap 05/18/2011 Primary Pharmacy/DME suppliers: [id number] - [place] - [address] [place] [address] [place] [address] PLEASE BRING IN ALL PILL BOTTLES TO EVERY OFFICE VISIT, THIS IS ESSENTIAL FOR ACCURATE REFILLS AND MAINTAINING AN ACCURATE MEDICATION LIST. PLEASE SIGN UP FOR MyCHART so that you may have access to your labs and chart documentation IF YOU HAVE TROUBLE WITH THIS PROCESS CALL [phone] documented in this encounter Ordered Prescriptions Prescription [...] largest meal 90 tablet 1 11/30/2020 1 spironolactone (Aldactone) 25 mg tabletIndications:B enign [...] each dosing 30 tablet 5 11/30/2020 1 propranoloL (INDERAL) 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:H ereditary essential tremor Take 1 tablet (20 mg total) by mouth 2 (two) times a day as needed (Tremor) 180 tablet 1 11/30/2020 1 pramipexole (MIRAPEX) 0.125 mg tabletIndications:I diopathic Parkinsonism,Restle ss Legs Syndrome Take 1 tablet (0.125 mg total) by mouth 3 (three) times a day 270 tablet 1 11/30/2020 1 documented in this encounter Progress Notes * Pepper Morgan MD - 11/30/2020 10:20 AM CDT ASSESSMENT AND PLAN Patient Instructions ORDERS FOR AMS STAFF TO ARRANGE 1. Labs today = free T4 TSH diagnosis = tiredness 2. Labs for six-month follow-up = LDL, chemistry panel, CBC diagnosis = 3. Refer the [facility] radiology Medrol 80 mg left hip injection diagnosis =advanced arthritis ORDERS FOR Tess Benedict TO ARRANGE 1. Medication changes The tiredness issue: Cymbalta can be causing this, propranolol can be causing this--we are going tostop the Cymbalta and make the propranolol just twice daily if you feel like you needed for the tremor -Stop Cymbalta 20 mg every morning, this medicine was prescribed for spinal stenosis in back and the neck pain. If those pains worsen off the medicine let me know and we will consider going on again. I think the medicine is causing you tiredness -increase the pramipexole 125 up to 1 tablet 3 times daily for the Parkinson's -Tramadol 50 mg will be 1/2 tablet twice daily with Tylenol ER 650 mg for the pain, I mass in the pharmacy to prescribe the all belong tablet football shaped easy to crack in half Advanced arthritis left hip Consider for hip replacement in the fall and winter--we are going to do a cortisone shot now for your pain --begin using a cane in the right hand when he walked to stabilize in case the hip is unstable Patient Care Team: Pepper Morgan MD as PCP - General [place], Hank Mccauley MD as Surgeon (Orthopedic Surgery) Jacky Murry MD (Ophthalmology) Puma Mckenzie MD as Surgeon (Orthopedic Surgery) Return in about 6 months (around 06/01/2021) for Annual physical, Recheck. Orders Placed This Encounter Procedures ??? FL Fluoro Guided Injection Hip Left ??? T4, free ??? TSH ??? Cholesterol, LDL, direct ??? Comprehensive metabolic panel ??? CBC with auto differential A brief review of all your problems, medications, and orders from today ICD-9-CM ICD-10-CM 1. Parkinson's disease (tremor, stiffness, slow motion, unstable posture) (CMS/HCC) 332.0 G20 pramipexole (MIRAPEX) 0.125 mg tablet 2. Hereditary essential tremor 333.1 G25.0 propranoloL (INDERAL) 20 mg tablet 3. Tiredness 780.79 R53.83 T4, free TSH 4. Restless legs syndrome 333.94 G25.81 pramipexole (MIRAPEX) 0.125 mg tablet 5. 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 401.1 I10 spironolactone (Aldactone) 25 mg tablet felodipine (PLENDIL) 5 mg 24 hr tablet Cholesterol, LDL, direct Comprehensive metabolic panel CBC with auto differential 6. Spinal stenosis of lumbar region with neurogenic claudication 724.03 M48.062 traMADoL (ULTRAM) 50 mg tablet meloxicam (MOBIC) 7.5 mg tablet 7. Cervical radiculopathy 723.4 M54.12 traMADoL (ULTRAM) 50 mg tablet meloxicam (MOBIC) 7.5 mg tablet 8. care home (current) use of non-steroidal anti-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s (nsaid) V58.64 Z79.1 pantoprazole (PROTONIX) 20 mg EC tablet 9. Sinus bradycardia 427.89 R00.1 10. Arthritis 716.90 M19.90 FL Fluoro Guided Injection Hip Left For your records I have provided this immunization report Immunization History Administered Date(s) Administered ??? Influenza, Quadrivalent, High Dose, Preservative Free, Intrr 03/31/2020 ??? Influenza, Quadrivalent, Split, Intramuscular 03/28/2016, 04/04/2017 ??? Influenza, Split 05/18/2012 ??? Influenza, Trivalent, Adjuvanted, Intramuscular 04/17/2019 ??? Influenza, Trivalent, High Dose, Split, Preservative Free, Intramuscular 03/23/2015, 03/12/2018, 04/17/2019 ??? Influenza, Trivalent, Intramuscular 03/25/2014, 04/17/2015 ??? Influenza, Unspecified 03/13/2018 ??? Pfizer SARS-CoV-2 Vaccination 08/15/2020, 09/06/2020 ??? Pneumococcal Conjugate PCV 13 02/18/2015 ??? Pneumococcal Polysaccharide PPV23 05/17/2002, 04/26/2016 ??? Tdap 05/18/2011 Primary Pharmacy/DME suppliers: [id number] - [place] - [address] [place] [address] [place] [address] PLEASE BRING IN ALL PILL BOTTLES TO EVERY OFFICE VISIT, THIS IS ESSENTIAL FOR ACCURATE REFILLS AND MAINTAINING AN ACCURATE MEDICATION LIST. PLEASE SIGN UP FOR MyCHART so that you may have access to your labs and chart documentation IF YOU HAVE TROUBLE WITH THIS PROCESS CALL [phone] CHIEF COMPLAINT Follow-up (6 month) HISTORY OF PRESENT ILLNESS Tess Benedict returns today for her six-month follow-up to review Chronic medical problems and discuss her concerns, Review new orders, and Update Medication Refill Management. Important details of this conversation, exam, and plan for care are summarized at the top and bottom of this comprehensive note for the readers quick access to the information. ORDERS FROM LAST VISIT WITH ME 05/26/2020 1. Labs for six-month follow-up visit = CBC, chemistry profile DX = benign hypertension, medicationmonitor ORDERS FOR Tess I Shewmake TO ARRANGE 1. The immunization recommendations SHINGRIX 2 shot series available at your grocery store [employer] or [employer] or your pharmacy without a prescription, try to get the sometime over the next year. This is covered by insurance. ?? Get the coronavirus immunization when it is available ?? 2. Medication changes Begin Sinemet 25/100 upon awakening and before lunch for the Parkinson's, keep the pramipexole 0.125 which can probably did be delayed until about 6:00 p.m. and then at bedtime for the restless leg, were going to delay the medicine so you have more wakefulness in the evening hours as the medicationpramipexole make you sleepy ? DETAILS REGARDING THIS VISIT: Tess reports feeling well but she is daytime tiredness and has been falling asleep block, she hastremor the bothers her in the daytime and improves after the Mirapex but she is not taking medicineduring the day. She has advancing arthritis in her left hip but is afraid to have surgery and has too many responsibilities hearing up further family members the summer to be able to take a break canget this done. : 1. Parkinson's disease (tremor, stiffness, slow motion, unstable posture) (CMS/HCC) Her Parkinson's is incompletely controlled. She does have increasing symptoms the daytime but did take the Mirapex before coming to office today. I have allowed her to increase the dose from afternoon evening to up to 3 times daily if needed - pramipexole (MIRAPEX) 0.125 mg tablet; Take 1 tablet (0.125 mg total) by mouth 3 (three) times a day Dispense: 270 tablet; Refill: 1 2. Hereditary essential tremor Her tremor is responding to Parkinson's medicine and she may not require the Inderal. She is havinga lot of trouble of tiredness perhaps related to the low pulse associated with very low doses of beta-paul but mainly to her underlying sinus bradycardia. Were going to try and stop the Inderal. Will make this medicine the as needed for tremor and have her decide whether it is worth the medicinedepending on how she is feeling with her tiredness symptoms - propranoloL (INDERAL) 20 mg tablet; Take 1 tablet (20 mg total) by mouth 2 (two) times a day as needed (Tremor) Dispense: 180 tablet; Refill: 1 3. Tiredness Lab review indicates there is nothing obvious here common think this medication related and for this we discontinued Cymbalta and were going to make the propranolol p.r.n. will update thyroid function today - T4, free; Future - TSH; Future 4. Restless legs syndrome Excellent results with the Mirapex also used for her Parkinson's - pramipexole (MIRAPEX) 0.125 mg tablet; Take 1 tablet (0.125 mg total) by mouth 3 (three) times a day Dispense: 270 tablet; Refill: 1 5. 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 Blood pressure very well controlled on Multaq tone Plendil does not require the Inderal for control - spironolactone (Aldactone) 25 mg tablet; Take 1 tablet (25 mg total) by mouth daily Dispense: 90 tablet; Refill: 1 - felodipine (PLENDIL) 5 mg 24 hr tablet; Take 1 tablet (5 mg total) by mouth daily Dispense: 90 tablet; Refill: 1 6. Spinal stenosis of lumbar region with neurogenic claudication Condition is been treated with low doses of Mobic at 7.5 mg plus duloxetine 20 and Ultram. She hadexcellent results with right hip and bilateral knee replacements but is afraid of having left hip done at this time. Were going to increase her tramadol 25 mg twice daily with Tylenol, continue the Mobic, stop the duloxetine due to tiredness, and look at a cortisone injection in this left hip - traMADoL (ULTRAM) 50 mg tablet; Take 0.5 tablets (25 mg total) by mouth 2 (two) times a day as needed (Neck and back pain) With Tylenol ER 650 at each dosing Dispense: 30 tablet; Refill: 5 - meloxicam (MOBIC) 7.5 mg tablet; Take 1 tablet (7.5 mg total) by mouth daily With the largest meal Dispense: 90 tablet; Refill: 1 8. 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 The CBC is stable with no evidence of bleeding - pantoprazole DR (PROTONIX) 20 mg EC tablet; Take 1 tablet (20 mg total) by mouth daily With the largest meal Dispense: 90 tablet; Refill: 1 9. Sinus bradycardia Long history of sinus bradycardia perhaps worsening with aging, EKG not updated today were going totry and markedly limit the propranolol SOCIAL HISTORY Social History Tobacco Use ??? Smoking status: Former Smoker Quit date: 1991 Years since quittin.4 ??? Smokeless tobacco: Never Used Substance Use Topics ??? Alcohol use: Not Currently REVIEW OF SYSTEMS Review of Systems Constitutional: Positive for activity change ( loving her neighborhood driving around in her motorized wheelchair enjoying her social I) and fatigue (Falls asleep easily during the day). Negative forappetite change, fever and unexpected weight change. HENT: [...] vaginal discharge. Musculoskeletal: Positive for arthralgias ( getting good relief with tramadol half tablet at night), back pain and gait problem ( related to her left hip arthritis does not want surgery at). Negativefor joint swelling and myalgias. Skin: Negative for color change and rash. Neurological: Positive for tremors ( Parkinson's bad in the morning response to the Mirapex but sheis only using this later in the day) and weakness ( unchanged weakness of the left hand from previous injury). Negative for dizziness and headaches. Hematological: Negative for adenopathy. Does not bruise/bleed easily. Psychiatric/Behavioral: Negative for behavioral problems, dysphoric mood and sleep disturbance. Thepatient is not nervous/anxious. MEDICATIONS CHANGED / CLEANED UP THIS VISIT Medications Discontinued During This Encounter Medication Reason ??? DULoxetine DR (CYMBALTA) 20 mg capsule Side effects ??? felodipine (PLENDIL) 5 mg 24 hr tablet Reorder ??? meloxicam (MOBIC) 7.5 mg tablet Reorder ??? pantoprazole DR (PROTONIX) 20 mg EC tablet Reorder ??? pramipexole (MIRAPEX) 0.125 mg tablet ??? propranoloL (INDERAL) 20 mg tablet Reorder ??? spironolactone (Aldactone) 25 mg tablet Reorder ??? traMADoL (ULTRAM) 50 mg tablet Reorder MEDICATION LIST AT CONCLUSION OF THIS VISIT Current Outpatient Medications Ordered in [facility] Medication Sig Dispense Refill ??? biotin 10,000 mcg capsule Take by mouth ??? cholecalciferol (VITAMIN D3) 2,000 unit tablet Take 2,000 Units by mouth daily ??? felodipine (PLENDIL) 5 mg 24 hr tablet Take 1 tablet (5 mg total) by mouth daily 90 tablet 1 ??? meloxicam (MOBIC) 7.5 mg tablet Take 1 tablet (7.5 mg total) by mouth daily With the largest meal 90 tablet 1 ??? pantoprazole DR (PROTONIX) 20 mg EC tablet Take 1 tablet (20 mg total) by mouth daily With the largest meal 90 tablet 1 ??? polyethylene glycol (MIRALAX) 17 gram packet Take 1 packet (17 g total) by mouth daily ??? pramipexole (MIRAPEX) 0.125 mg tablet Take 1 tablet (0.125 mg total) by mouth 3 (three) times aday 270 tablet 1 ??? propranoloL (INDERAL) 20 mg tablet Take 1 tablet (20 mg total) by mouth 2 (two) times a day as needed (Tremor) 180 tablet 1 ??? senna-docusate (PERICOLACE) 8.6-50 mg Take 1 tablet by mouth nightly 90 tablet 1 ??? spironolactone (Aldactone) 25 mg tablet Take 1 tablet (25 mg total) by mouth daily 90 tablet 1 ??? traMADoL (ULTRAM) 50 mg tablet Take 0.5 tablets (25 mg total) by mouth 2 (two) times a day as needed (Neck and back pain) With Tylenol ER 650 at each dosing 30 tablet 5 ??? ascorbic acid (VITAMIN C) 500 mg tablet,chewable Take 1 tablet/chew tab (500 mg total) by mouthdaily (Patient not taking: Reported on 11/30/2020) 30 tablet/chew tab 0 No current [facility]-ordered facility-administered medications on file. ALLERGIES is allergic to celecoxib, sulfa (sulfonamide antibiotics), amlodipine, lisinopril, trazodone, cymbalta [duloxetine], scopolamine, and sinemet [carbidopa-levodopa]. PHYSICAL EXAM body mass index is 34.57 kg/m??. Vitals: 11/30/20 1034 BP: 150/70 BP Location: Right arm Patient Position: Sitting Pulse: (!) 49 Resp: 12 Temp: 37 ??C (98.6 ??F) TempSrc: Temporal SpO2: 97% Weight: 80.3 kg (177 lb) Physical Exam Vitals reviewed. Constitutional: General: She is not in acute distress. Appearance: Normal appearance. She is well-developed and normal weight. She is not ill-appearing. HENT: Head: Normocephalic. [...] Thyroid: No thyromegaly. Cardiovascular: Rate and Rhythm: Regular rhythm. Bradycardia present. Pulses: Normal pulses. Heart sounds: Normal heart sounds. No murmur heard. No gallop. Comments: Chronically bradycardic but she is little bit slower than usual today and will stop propranolol Pulmonary: Effort: Pulmonary effort is normal. Breath sounds: Normal breath sounds. No wheezing, rhonchi or rales. Abdominal: General: Bowel sounds are normal. Palpations: Abdomen is soft. There is no mass. Tenderness: There is no abdominal tenderness. Hernia: No hernia is present. Musculoskeletal: General: Tenderness ( related to pain in her left hip) and deformity ( tenderness and diminished mobility left hip joint) present. Cervical back: Normal range of motion. Right lower leg: No edema. Left lower leg: No edema. Comments: Excellent healing of the right hip in both knee replacements Lymphadenopathy: Cervical: No cervical adenopathy. Skin: General: Skin is warm and dry. Findings: No erythema, lesion or rash. Neurological: General: No focal deficit present. Mental Status: She is alert and oriented to person, place, and time. Mental status is at baseline. Cranial Nerves: No cranial nerve deficit. Motor: Weakness (ADVANCING ARTHRITIS AND PAIN IN HER LEFT HIP) present. No abnormal muscle tone. Coordination: Coordination abnormal (Very minimal tremor no bradykinesia, minimal cogwheeling today). Gait: Gait abnormal ( arthritic left hip with limping). Psychiatric: Mood and Affect: Mood normal. Behavior: [...] BLOOD WORK REVIEWED WITH Tess Benedict TODAY Lab on 2020 Component Date Value Ref [...] Basophil pct 2020 0.8 % Final ??? GFR 2020 85 mL/min/1.73 m2 Final Lab on 05/12/2020 Component Date Value Ref Range Status ??? Sodium 05/12/2020 136 135 - 145 mmol/L Final ??? Potassium, pl 05/12/2020 4.3 3.3 - 4.9 mmol/L Final ??? Chloride 05/12/2020 100 97 - 110 mmol/L Final ??? CO2 05/12/2020 30 22 - 32 mmol/L Final ??? Anion gap 05/12/2020 6 2 - 15 mmol/L Final ??? BUN 05/12/2020 11 8 - 25 mg/dL Final ??? Creatinine 05/12/2020 0.65 0.60 - 1.10 mg/dL Final ??? Glucose 05/12/2020 77 70 - 199 mg/dL Final ??? Calcium 05/12/2020 9.3 8.5 - 10.3 mg/dL Final ??? Bilirubin, total 05/12/2020 0.3 0.1 - 1.2 mg/dL Final ??? Protein, pl 05/12/2020 6.6 6.5 - 8.5 g/dL Final ??? Albumin 05/12/2020 3.8 3.5 - 5.0 g/dL Final ??? Alk phos 05/12/2020 111 40 - 130 Units/L Final ??? ALT 05/12/2020 6* 7 - 45 Units/L Final ??? AST 05/12/2020 16 10 - 45 Units/L Final ? ? LDL Cholesterol, Direct 05/12/2020 121 <=129 mg/dL Final ??? GFR 05/12/2020 83 mL/min/1.73 m2 Final Patient Active Problem List [...] knee Z96.651 ??? Acute low back pain M54.5 ??? Iron deficiency anemia D50.9 ??? care home (current) use of non-steroidal anti-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s (nsaid) Z79.1 ??? Constipation due to opioid therapy K59.03, T40.2X5A ??? Acute bacterial rhinosinusitis J01.90, B96.89 ??? Sinus bradycardia R00.1 Pepper Morgan M.D. documented in this encounter Plan of Treatment Not on file documented as of this encounter Results * (ABNORMAL) CBC with auto differential (05/24/2021 12:51 PM HOUSE BUILDER) Pathologist [facility] WBC 8.2 3.8 - 9.9 K/cumm [facility] Hgb 13.8 11.9 - 15.5 g/dL [facility] Hct 45.9(H) 35.6 - 45.5 % [facility] Plt 335 150 - 400 K/cumm [facility] MPV 9.5 9.1 - 12.3 fL [facility] RBC 4.93 3.90 - 5.20 M/cumm [facility] MCV 93.1 81.3 - 96.4 fL [facility] MCH 28.0 27.1 - 33.3 pg [facility] MCHC 30.1(L) 32.3 - 35.7 g/dL [facility] RDW CV 13.5 11.1 - 14.9 % [facility] RDW SD 46.4 35.7 - 48.1 fL [facility] NRBC abs 0.00 0.00 - 0.01 K/cumm [facility] Blood 05/24/2021 12:5 1 PM HOUSE BUILDER 05/24/2021 6:47 PM HOUSE BUILDER Pepper Morgan MD LAB BLOOD ORDERABLES Final Result [facility] [place] [address] [address] Department [place] [address] * (ABNORMAL) Comprehensive metabolic panel (05/24/2021 12:51 PM HOUSE BUILDER) Pathologist [facility] Sodium 139 135 - 145 mmol/L [facility] Potassium, pl 5.2(H) 3.3 - 4.9 mmol/L [facility] Chloride 102 97 - 110 mmol/L [facility] CO2 28 22 - 32 mmol/L [facility] Anion gap 9 2 - 15 mmol/L [facility] BUN 15 8 - 25 mg/dL [facility] Creatinine 1.22(H) 0.60 - 1.10 mg/dL [facility] Glucose 97 70 - 199 mg/dL [facility] Comment: Interpretive [...] [facility] Blood 05/24/2021 12:5 1 PM HOUSE BUILDER 05/24/2021 6:47 PM HOUSE BUILDER us Pepper Morgan MD LAB BLOOD ORDERABLES Final Result [facility] [address] Department [place] [address] * Cholesterol, LDL, direct (05/24/2021 12:51 PM HOUSE BUILDER) LDL Cholesterol, Direct 107 <=129 mg/dL CERNER Comment: Interpretive Data Ages < or = [...] on 2018. Blood 05/24/2021 12:5 1 PM HOUSE BUILDER 05/24/2021 6:47 PM HOUSE BUILDER us Pepper Morgan MD LAB BLOOD ORDERABLES Final Result Performing Organization Address City/State/ZIP Co mn Phone Number CHIDI [phone] [facility] Department [place] [address] * FL Fluoro Guided Injection Hip Left [...] AM T: ??01/28/2021 11:18 AM Report ID: [id number] Reading Location: ??[id number] Procedure Note Queenie Rock Kevin, DO - 01/28/2021 EXAM DESCRIPTION: FL FLUORO [...] Rock Jerome D.O. PS: PS Report ID: [id number] Reading Location: [id number] us Pepper Morgan MD IMG FLUOROSCOPY PROCEDURES Final Result * TSH (11/30/2020 12:22 PM CDT) Thyroid Stimulating Hormone 3.18 0.30 - 4.20 mcIUnit/mL RACHELLNER Blood specimen (specimen) 11/30/2020 12:22 PM CDT 11/30/2020 5:07 PM CDT us Pepper Morgan MD LAB BLOOD ORDERABLES Final Result [facility]GHAN [address] [facility] [place] [address] * T4, free (11/30/2020 12:22 PM CDT) Free T4 1.29 0.90 - 1.70 ng/dL CH[facility]I VAUGHAN Blood specimen (specimen) 11/30/2020 12:22 PM CDT 11/30/2020 5:07 PM CDT us Pepper Morgan MD LAB BLOOD ORDERABLES Final Result Performing Organization Address [facility] [[email or web address]] Co de Phone Number CHIDI VAUGHAN [id number] [facility] [place] [address] documented in this encounter Visit Diagnoses Diagnosis Parkinson's disease (tremor, stiffness, slow motion, unstable posture) (HCC)- Primary Paralysis agitans Hereditary essential tremor Essential and other specified forms of tremor Tiredness Other malaise and fatigue Restless legs syndrome Restless legs syndrome (RLS) 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 Essential hypertension, benign Spinal stenosis of lumbar region with neurogenic claudication Cervical radiculopathy Brachial neuritis or radiculitis nos 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s (nsaid) Sinus bradycardia Other specified cardiac dysrhythmias Arthritis Unspecified arthropathy, site unspecified Arthritis Unspecified arthropathy, site unspecified documented in this encounter Discontinued Medications Medication Sig Discontinue Reason Start Date End Da te DULoxetine DR (CYMBALTA) 20 mg capsuleIndications:Anxiet y with Depression Take 1 capsule (20 mg total) by mouth daily Side effects 06/01/2020 11/30/2020 felodipine (PLENDIL) 5 mg 24 hr tabletIndications:Benign hypertension Take 1 tablet (5 mg total) by mouth daily Reorder 05/26/2020 11/30/2020 meloxicam (MOBIC) 7.5 mg tabletIndications:Spinal stenosis of lumbar region with neurogenic claudication,Cervical radiculopathy Take 1 tablet (7.5 mg total) by mouth daily With the largest meal Reorder 05/26/2020 11/30/[address] (PROTONIX) 20 mg EC tabletIndications:care home (current) use of non-steroidal anti-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s (nsaid) Take 1 tablet (20 mg total) by mouth daily With the largest meal Reorder 05/26/2020 11/30/2020 pramipexole (MIRAPEX) 0.125 mg tabletIndications:Idiopat hic Parkinsonism,Restless Legs Syndrome Take 1 tablet (0.125 mg total) by mouth 2 (two) times a day 05/26/2020 11/30/2020 propranoloL (INDERAL) 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:Benign hypertension,Hereditary essential tremor Take 1 tablet (20 mg total) by mouth 2 (two) times a day Reorder 05/26/2020 11/30/2020 spironolactone (Aldactone) 25 mg tabletIndications:Benign hypertension Take 1 tablet (25 mg total) by mouth daily Reorder 05/26/2020 11/30/2020 traMADoL (ULTRAM) 50 mg tabletIndications:Spinal stenosis of lumbar region with neurogenic claudication,Cervical radiculopathy Take 0.5-1 tablets (25-50 mg total) by mouth 2 (two) times a day as needed for pain With Tylenol ER 650 at each dosing Reorder 05/26/2020 11/30/2020 documented as of this encounter Care Teams Marketing Sales Manager Relationship Specialty Start Date End Date Pepper Morgan MD PCP - General 09/16/16 Hank Garibay MD 4 [facility] [address] [place] [address] Surgeon Orthopedic Surgery 03/27/17 Jacky Murry MD 4 [facility] [address] [place] [address] Ophthalmology 03/27/17 Puma Mckenzie MD 4 [facility] [address] [place] [address] Surgeon Orthopedic Surgery 07/11/19 documented as of this encounter
--- OUTSIDE RECORDS SUMMARY | 2024-06-18 19:01 | XMS_ITS | Encounter Summary ---
Author Organization [facility] Healthcare Address [address] [place] [address] Care Team Providers Care Plug Assembler Name Role Phone Pepper Morgan MD Primary Care Provider + [phone] Hank Garibay MD Unavailable [phone] Jacky Murry MD Unavailable [phone] Puma Mckenzie MD Unavailable [phone] Encounter Details Date Type Department Care Team (Late st Contact Info) Description 08/08/2019 7:10 PM PIPE TESTING TECHNICIAN Lab [address] [address] Iron deficiency anemia, unspecified iron deficiency anemia type; Edema, unspecified type Social History Tobacco Use Types Packs/Day Years Used Date Smoking Tobacco: Former Cigarettes Q uit: 1992 Smokeless Tobacco: Never Alcohol Use Standard Drinks/Week Comments Not Currently 0 (1 standard drink = 0.6 oz pur e alcohol) PHQ-2 Answer Date Recorded PHQ-2 Score 0 05/14/2019 Comments No Sex and Gender Information Value Date Recorded Sex Assigned at Not on file Legal Sex Female 4:33 AM PIPE TESTING TECHNICIAN Gender Identity Not on file Sexual Orientation Not on file Occupation Industry Job Start Date Job End Date retired Not on file Not on file Not on file documented as of this encounter Plan of Treatment Not on file documented as of this encounter Procedures Procedure Name Priority Date/Time Associated Diagnosis Comments EGFR Routine 08/08/2019 10:30 AM PIPE TESTING TECHNICIAN Edema, unspecified type DIFFERENTIAL AUTO Routine 08/08/2019 10: 30 AM PIPE TESTING TECHNICIAN Iron deficiency anemia, unspecified iron deficiency anemia type CBC WITH AUTO DIFFERENTIAL Routine 08/08/2019 10:30 AM PIPE TESTING TECHNICIAN Iron deficiency anemia, unspecified iron deficiency anemia type BASIC METABOLIC PANEL Routine 08/08/2019 10:30 AM PIPE TESTING TECHNICIAN Edema, unspecified type documented in this encounter Results * eGFR (08/08/2019 10:30 AM PIPE TESTING TECHNICIAN) eGFR 85 mL/min/1.7 3 m2 CHIDI VAUGHAN Comment: Interpretive Data Reference Interval Normal ?>/= 90 mL/min/1.73m2 Mildly decreased* ? 60 - 89 mL/min/1.73m2 Mildly to moderately decreased ?45 - 59 mL/min/1.73m2 Moderately to severely decreased ??30 - 44 mL/min/1.73m2 Severely decreased ?15 - 29 mL/min/1.73m2 Kidney Failure ?< 15 ??mL/min/1.73m2 *Relative to young adult level If -[place] multiply value by 1.16. Estimated glomerular filtration rate is determined by [...] 70. Current interpretive data was last reviewed 2016. Blood specimen (specimen) 08/08/2019 10:30 AM PIPE TESTING TECHNICIAN 08/08/2019 7:21 PM PIPE TESTING TECHNICIAN us Jacqueline Mccraymarionshivam PROJECT MANAGER INDUSTRIAL LAB BLOOD ORDERABL ES Final Result [facility] [address] Department [place] [address] * Differential, auto (08/08/2019 10:30 AM PIPE TESTING TECHNICIAN) Neutrophil abs 5.1 1.7 - 6.5 K/cumm [facility] Imm gran abs 0.0 0.0 - 0.1 K/cumm [facility] Lymphocyte abs 1.1 0.8 - 3.3 K/cumm [facility] Monocyte abs 0.7 0.2 - 0.8 K/cumm [facility] Eosinophil abs 0.4 0.0 - 0.5 K/cumm [facility] Basophil abs 0.1 0.0 - 0.1 K/cumm [facility] Neutrophil pct 69.1 % [facility] Comment: Interpretive Data Percent cell count reference ranges are not reported, since discordance with absolute values may lead to misinterpretation of CBC data. Current Interpretive Data was last revised on 2017. Imm gran pct 0.7 % [facility] Comment: Interpretive Data Percent cell count reference ranges are not reported, since discordance with absolute values may lead to misinterpretation of CBC data. Current Interpretive Data was last revised on 2017. Lymphocyte pct 14.8 % [facility] Comment: Interpretive Data Percent cell count reference ranges are not reported, since discordance with absolute values may lead to misinterpretation of CBC data. Current Interpretive Data was last revised on 2017. Monocyte pct 9.6 % [facility] Comment: Interpretive Data Percent cell count reference ranges are not reported, since discordance with absolute values may lead to misinterpretation of CBC data. Current Interpretive Data was last revised on 2017. Eosinophil pct 5.0 % [facility] Comment: Interpretive Data Percent cell count reference ranges are not reported, since discordance with absolute values may lead to misinterpretation of CBC data. Current Interpretive Data was last revised on 2017. Basophil pct 0.8 % [facility] Comment: Interpretive Data Percent cell count reference ranges are not reported, since discordance with absolute values may lead to misinterpretation of CBC data. Current Interpretive Data was last revised on 2017. Blood specimen (specimen) 08/08/2019 10:30 AM PIPE TESTING TECHNICIAN 08/08/2019 7:15 PM PIPE TESTING TECHNICIAN Jacqueline Fuller PROJECT MANAGER INDUSTRIAL LAB BLOOD ORDERABL ES Final Result [facility] [address] Department [place] [address] * (ABNORMAL) Basic metabolic panel (08/08/2019 10:30 AM PIPE TESTING TECHNICIAN) Sodium 136 135 - 145 mmol/L [facility] Potassium, pl 5.2(H) 3.3 - 4.9 mmol/L [facility] Chloride 97 97 - 110 mmol/L [facility] CO2 28 22 - 32 mmol/L [facility] Anion gap 11 2 - 15 mmol/L [facility] BUN 18 8 - 25 mg/[facility] Creatinine 0.62 0.60 - 1.10 mg/dL [facility] Glucose 79 70 - 199 mg/dL [facility] Comment: Interpretive Data Fasting glucose >/= [...] 2017. Calcium 9.6 8.5 - 10.3 mg/dL [facility] Blood specimen (specimen) 08/08/2019 10:30 AM PIPE TESTING TECHNICIAN 08/08/2019 7:15 PM PIPE TESTING TECHNICIAN Jacqueline Fuller NP LAB BLOOD ORDERABL ES Final Result [facility] [address] Department [place] [address] * (ABNORMAL) CBC with auto differential (08/08/2019 10:30 AM PIPE TESTING TECHNICIAN) WBC 7.4 3.8 - 9.9 K/cumm [facility] Hgb 13.2 11.9 - 15.5 g/dL [facility] Hct 44.3 35.6 - 45.5 % C[facility] Plt 375 150 - 400 K/cumm [facility] MPV 9.6 9.1 - 12.3 fL [facility] RBC 4.77 3.90 - 5.20 M/cumm [facility] CH MCV 92.9 81.3 - 96.4 fL [facility] MCH 27.7 27.1 - 33.3 pg [facility] MCHC 29.8(L) 32.3 - 35.7 g/dL [facility] CH RDW CV 14.4 11.1 - 14.9 % [facility] RDW SD 49.7(H) 35.7 - 48.1 fL [facility] NRBC abs 0.00 0.00 - 0.01 K/cumm [facility] Blood specimen (specimen) 08/08/2019 10:30 AM PIPE TESTING TECHNICIAN 08/08/2019 7:15 PM PIPE TESTING TECHNICIAN Jacqueline Fuller PROJECT MANAGER INDUSTRIAL LAB BLOOD ORDERABL ES Final Result [facility] [address] Department [place] [address] documented in this encounter Visit Diagnoses Diagnosis Iron deficiency anemia, unspecified iron deficiency anemia type Edema, unspecified type documented in this encounter Care Teams Plug Assembler Relationship Specialty Start Date End Date Pepper Morgan MD PCP - General 09/16/16 Hank Garibay MD [address] [place] [address] [address] [address] Surgeon Orthopedic Surgery 03/27/17 Jacky Murry MD [address] [facility] [address] [place] [address] Ophthalmology 03/27/17 Puma Mckenzie MD [address] [facility] [address] [place] [address] Surgeon Orthopedic Surgery 07/11/19 documented as of this encounter
--- OUTSIDE RECORDS SUMMARY | 2024-06-18 19:01 | XMS_ITS | Encounter Summary ---
Author Organization [facility] Medical Group Address [address] [facility] [address] [place] [address] Care Team Providers Care Residency Coordinator Name Role Phone Pepper Morgan MD Primary Care Provider + [phone] Hank Garibay MD Unavailable [phone] Jacky Murry MD Unavailable [phone] Puma Mckenzie MD Unavailable [phone] Encounter Details Date Type Department Care Team (Late st Contact Info) Description 11/18/2019 Telephone [facility] [address] [place] [id number] Pepper Morgan MD [address] [place] [address] Social History Tobacco Use Types Packs/Day Years [...] on file Legal Sex Female 4:33 AM PATIENT ACCESS Gender Identity Not on file Sexual Orientation Not on file Occupation Industry Job Start Date Job End Date retired Not on file Not on file Not on file documented as of this encounter Miscellaneous Notes * Telephone Encounter - Milana Fuentes, RN - 11/18/2019 3:29 PM CDT Called and informed pharmacy that this is a new prescription and she is titration the medication tosee how is works for her They will do a consolation for her regarding the dosage Pharmacy will call us back with any questions or problems * Telephone Encounter - Vickie Araujo - 11/18/2019 1:21 PM CDT [facility] in [place] calling on 0.125 pramipexole, they had two scripts sent over today and they wanted to verify which one was correct? documented in this encounter Plan of Treatment Not on file documented as of this encounter Visit Diagnoses Not on filedocumented in this encounter Care Teams Residency Coordinator Relationship Specialty Start Date End Date Pepper Morgan MD PCP - General 09/16/16 Hank Garibay MD [address] [facility] [address] [place] [address] Surgeon Orthopedic Surgery 03/27/17 Jacky Murry MD [address] [facility] [address] [place] [address] Ophthalmology 03/27/17 Puma Mckenzie MD [address] [facility] [address] [place] [address] Surgeon Orthopedic Surgery 07/11/19 documented as of this encounter
--- OUTSIDE RECORDS SUMMARY | 2024-06-18 19:01 | XMS_ITS | Encounter Summary ---
Author Organization [facility] Medical Group Address [address] [address] Care Team Providers Care Insurance Claims Examiner Name Role Phone Pepper Morgan MD Primary Care Provider + [phone] Hank Garibay MD Unavailable [phone] Jacky Murry MD Unavailable [phone] Puma Mckenzie MD Unavailable [phone] Encounter Details Date Type Department Care Team (Late st Contact Info) Description 05/12/2020 9:30 AM HEAD BOYS TENNIS COACH [facility] [address] [place] [phone] Benign hypertension Social History Tobacco Use Types [...] file Legal Sex Female 4:33 AM HEAD BOYS TENNIS COACH Gender Identity Not on file Sexual Orientation Not on file Occupation Industry Job Start Date Job End Date retired Not on file Not on file Not on file documented as of this encounter Plan of Treatment Not on file documented as of this encounter Visit Diagnoses Diagnosis Benign hypertension Essential hypertension, benign documented in this encounter Care Teams Insurance Claims Examiner Relationship Specialty Start Date End Date Pepper Morgan MD PCP - General 09/16/16 Hank Garibay MD [address] [facility] [address] [place] [address] Surgeon Orthopedic Surgery 03/27/17 Jacky Murry MD [address] [facility] [address] [place] [address] Ophthalmology 03/27/17 Puma Mckenzie MD [address] [facility] [address] [place] [address] Surgeon Orthopedic Surgery 07/11/19 documented as of this encounter
--- OUTSIDE RECORDS SUMMARY | 2024-06-18 19:01 | XMS_ITS | Encounter Summary ---
Author Organization [facility] Medical Group Address [address] [address] Care Team Providers Care Meat Carrier Name Role Phone Pepper Morgan MD Primary Care Provider [phone] Hank Garibay MD Unavailable [phone] Jacky Murry MD Unavailable [phone] Puma Mckenzie MD Unavailable [phone] Reason for Visit * Diagnostic Imaging (Routine) - Closed Specialty Diagnoses / Procedures Referred By Contac t Referred To Contact Diagnoses Acute low back pain, unspecified back pain laterality, unspecified whether sciatica present Procedures XR Spine Lumbar Complete 4 Or More VentimiglJacqueline langley NP Phone: tel: [facility] Referral ID Status Reason Start Date Expiration Date Visits Re quested Visits Authorized [id number] Closed 08/08/2019 02/16/2021 1 1 Encounter Details Date Type Department Care Team (Latest Contact Info) Description 08/08/2019 10:30 AM HEAD OF GLOBAL STRATEGIC PARTNERSHIPS Ancillary Procedure [facility] [address] [place] [address] Acute low back pain, unspecified back pain laterality, unspecified whether sciatica present Social History Tobacco Use Types Packs/Day Years [...] file Legal Sex Female 4:33 AM HEAD OF GLOBAL STRATEGIC PARTNERSHIPS Gender Identity Not on file Sexual Orientation Not on file Occupation Industry Job Start Date Job End Date retired Not on file Not on file Not on file documented as of this encounter Plan of Treatment Not on file documented as of this encounter Procedures Procedure Name Priority Date/Time Associated Diagnosis Comments XR SPINE LUMBAR COMPLETE 4 OR MORE VIEWS Schedule Routine, Read Routine (OP Routine) 08/08/2019 10:50 AM HEAD OF GLOBAL STRATEGIC PARTNERSHIPS Acute low back pain, unspecified back pain laterality, unspecified whether sciatica present documented in this encounter Results * XR Spine Lumbar Complete 4 Or More (08/08/2019 10:50 AM HEAD OF GLOBAL STRATEGIC PARTNERSHIPS) Anatomical Region Laterality Modality Spine N/A Computed Radiogr aphy Narrative 08/08/2019 2:25 PM HEAD OF GLOBAL STRATEGIC PARTNERSHIPS Six views of the lumbar spine are negative for fracture. ??There is approximately 5 mm anterior subluxation at the L4-L5 level. ??There is moderate to severe loss of disc height. ??This is worse at the L4-S1 level where there is also vacuum phenomenon. ??Moderate to severe facet hypertrophy is noted. ??This is also worse at the lower lumbar levels. There is heavy vascular calcifications. ??No aneurysm is seen. ??No pars defect is identified. ??Moderate sclerosis of the SI joints noted. ??There are postop changes of right hip replacement. ??Severe degenerative change of the left hip is noted with loss of joint space and sclerosis of articular surfaces. ??Numerous surgical clips are noted in the GE junction region. Impression: 1. Lumbar series negative for fracture. ??Advanced degenerative changes detailed above. 2. Moderate to severe degenerative change of the SI joints and left hip. ?? Jacqueline Fuller GROOVING MACHINE OPERATOR IMG XR PROCEDURES Final Result documented in this encounter Visit Diagnoses Diagnosis Acute low back pain, unspecified back pain laterality, unspecified whether sciatica present documented in this encounter Care Teams Meat Carrier Relationship Specialty Start Date End Date Pepper Morgan MD PCP - General 09/16/16 Hank Garibay MD [address] [facility] [address] [place] [address] Surgeon Orthopedic Surgery 03/27/17 Jacky Murry MD [address] [facility] [address] [place] [address] Ophthalmology 03/27/17 Puma Mckenzie MD [address] [facility] [address] [place] [address] Surgeon Orthopedic Surgery 07/11/19 documented as of this encounter
--- OUTSIDE RECORDS SUMMARY | 2024-06-18 19:01 | XMS_ITS | Encounter Summary ---
Author Organization [facility] Medical Group Address [address] [address] Care Team Providers Care Farmworker Livestock Name Role Phone Pepper Morgan MD Primary Care Provider [phone] Hank Garibay MD Unavailable [phone] Jacky Murry MD Unavailable [phone] Puma Mckenzie MD Unavailable [phone] Reason for Visit * Diagnostic Imaging (Routine) - Closed Specialty Diagnoses / Procedures Referred By Contac t Referred To Contact Diagnoses Cervical radiculopathy Procedures XR Spine Cervical W Flexion And Extension 6 or More Views Pepper Morgan MD Phone: tel: fax: [facility] Referral ID Status Reason Start Date Expiration Date Visits Re quested Visits Authorized [id number] Closed 09/25/2019 04/05/2021 1 1 Encounter Details Date Type Department Care Team (Latest Contact Info) Description 09/25/2019 12:40 PM CDT Ancillary Procedure [facility] [address] [place] [phone] Cervical radiculopathy Social History Tobacco Use Types Packs/Day Years [...] on file Legal Sex Female 4:33 AM POPPED CORN OVEN ATTENDANT Gender Identity Not on file Sexual Orientation Not on file Occupation Industry Job Start Date Job End Date retired Not on file Not on file Not on file documented as of this encounter Plan of Treatment Not on file documented as of this encounter Procedures Procedure Name Priority Date/Time Associated Diagnosis Comments XR SPINE CERVICAL W FLEXION AND EXTENSION 6 OR MORE VIEWS Schedule Routine, Read Routine (OP Routine) 09/25/2019 12:56 PM CDT Cervical radiculopathy documented in this encounter Results * XR Spine Cervical W Flexion And Extension 6 or More Views (09/25/2019 12:56 PM CDT) Anatomical Region Laterality Modality Spine N/A Computed Radiogr aphy Narrative 09/25/2019 2:45 PM CDT Seven views of the cervical spine show overall decreased bone density. ??On neutral lateral imaging there is about a 2-3 mm anterolisthesis of C3 on 4. Multilevel degenerate spondylosis changes are seen. ??Mainly anterior spurring C2-3, C3-4 levels. ??Slight anterior and posterior spurring C4-5 level. ??Both anterior and posterior spurring C5-6 and C6-7 levels with narrowing of all disc spaces at these levels. ??Multilevel facet arthropathic changes are seen. ??Flexion and extension views show minimal movement at both the C3-4 and C4-5 levels. ??Obliques show facet arthropathy which is causing right C4-5 neural foraminal compromise and to lesser degree left C3-4 neural foraminal compromise. ??C1-C2 articulation is normal. ??An acute fracture is not seen. ??No soft tissue abnormality demonstrated. Impression: Changes of osteoarthritis as described. ??Slight movement of C3 on 4 and C4 on 5 with flexion and extension. No acute bony abnormality. us Pepper Morgan MD IMG XR PROCEDURES Final Re sult documented in this encounter Visit Diagnoses Diagnosis Cervical radiculopathy Brachial neuritis or radiculitis nos documented in this encounter Care Teams Farmworker Livestock Relationship Specialty Start Date End Date Pepper Morgan MD PCP - General 09/16/16 Hank Garibay MD [address] [facility] [address] [place] [address] Surgeon Orthopedic Surgery 03/27/17 Jacky Murry MD [address] [facility] [address] [place] [address] Ophthalmology 03/27/17 Puma Mckenzie MD [address] [facility] [address] [place] [address] Surgeon Orthopedic Surgery 07/11/19 documented as of this encounter
--- OUTSIDE RECORDS SUMMARY | 2024-06-18 19:01 | XMS_ITS | Encounter Summary ---
Author Organization [facility] Facility Care Team Providers Care Android Programmer Name Role Phone Pepper Morgan MD Primary Care Provider + [phone] Hank Garibay MD Unavailable [phone] Jacky Murry MD Unavailable [phone] Puma Mckenzie MD Unavailable [phone] Encounter Details Date Type Department Care Team (Latest Contact Info) Description 08/22/2019 Travel Social History Tobacco Use Types Packs/Day [...] file Legal Sex Female 4:33 AM SECURITY OFFICER SUPERVISOR Gender Identity Not on file Sexual Orientation Not on file Occupation Industry Job Start Date Job End Date retired Not on file Not on file Not on file documented as of this encounter Plan of Treatment Not on file documented as of this encounter Visit Diagnoses Not on filedocumented in this encounter Care Teams Android Programmer Relationship Specialty Start Date End Date Pepper Morgan MD PCP - General 3/31/17 Hank Garibay MD [address] [facility] [address] [place] [address] Surgeon Orthopedic Surgery 03/27/17 Jacky Murry MD [address] [facility] [address] [place] [address] Ophthalmology 03/27/17 Puma Mckenzie MD [address] [facility] [address] [place] [address] Surgeon Orthopedic Surgery 07/11/19 documented as of this encounter
--- OUTSIDE RECORDS SUMMARY | 2024-06-18 19:01 | XMS_ITS | Encounter Summary ---
Author Organization [facility] Address [address] [facility] [address] [place] [address] Care Team Providers Care Crop Insurance Claims Adjuster Name Role Phone Pepper Morgan MD Primary Care Provider + [phone] Hank Garibay MD Unavailable [phone] Jacky Murry MD Unavailable [phone] Puma Mckenzie MD Unavailable [phone] Encounter Details Date Type Department Care Team (Late st Contact Info) Description 05/08/2020 Telephone [facility] [address] [place] [id number] Pepper Morgan MD [address] [place] [address] Social History Tobacco Use Types Packs/Day Years [...] on file Legal Sex Female 4:33 AM MECHANISM INSPECTOR Gender Identity Not on file Sexual Orientation Not on file Occupation Industry Job Start Date Job End Date retired Not on file Not on file Not on file documented as of this encounter Miscellaneous Notes * Telephone Encounter - Lacie Alicea MA - 05/08/2020 4:42 PM MECHANISM INSPECTOR I have corrected this in another note. [employer] personnel administrator ANISM INSPECTOR * Telephone Encounter - Theresa Rolon - 05/08/2020 2:56 PM CST nash pearson called requesting clarification on a medicine we called in Pramipexole Directions: Take 1 tablet (0.125 mg total) by mouth 2 (two) times a day ??Take 1-2 tablets by mouthevery day Needing clarification on the directions please advise CBN: [phone] ANISM INSPECTOR documented in this encounter Plan of Treatment Not on file documented as of this encounter Visit Diagnoses Not on filedocumented in this encounter Care Teams Crop Insurance Claims Adjuster Relationship Specialty Start Date End Date Pepper Morgan MD PCP - General 09/16/16 Hank Garibay MD [address] [facility] [address] [place] [address] Surgeon Orthopedic Surgery 03/27/17 Jacky Murry MD [address] [facility] [address] [place] [address] Ophthalmology 03/27/17 Puma Mckenzie MD [address] [facility] [address] [place] [address] Surgeon Orthopedic Surgery 07/11/19 documented as of this encounter
--- OUTSIDE RECORDS SUMMARY | 2024-06-18 19:01 | XMS_ITS | Encounter Summary ---
Author Organization [facility] Medical [facility] Address [address] [facility] [address] [place] [address] Care Team Providers Care Financial Sales Professional Name Role Phone Pepper Morgan MD Primary Care Provider [phone] Hank Garibay MD Unavailable [phone] Jacky Murry MD Unavailable [phone] Puma Mckenzie MD Unavailable [phone] Reason for Visit * Reason Comments COVID-19 EVALUATION Encounter Details Date Type Department Care Team (Latest Contact Info) Description 06/02/2020 10:00 AM MANIFOLD OPERATOR Office Visit [facility] [address] [place] [id number] Jacqueline Fuller, POCKETS AND PIECES NECKTIE OPERATOR [address] [place] [address] Acute bacterial rhinosinusitis (Primary Dx) Social History Tobacco Use Types Packs/Day Years Used Date Smoking Tobacco: Former Cigarettes Q uit: 1991 Smokeless Tobacco: Never Tobacco Cessation:Counseling Given: Yes [...] on file Legal Sex Female 4:33 AM MANIFOLD OPERATOR Gender Identity Not on file Sexual Orientation Not on file Occupation Industry Job Start Date Job End Date retired Not on file Not on file Not on file documented as of this encounter Last Filed Vital Signs Vital Sign Reading Time Taken Comments Blood Pressure 114/80 06/02/2020 10:17 AM MANIFOLD OPERATOR Pulse 53 06/02/2020 10:17 AM MANIFOLD OPERATOR Temperature 36 ??C (96.8 ??F) 06/02/2020 10:17 AM MANIFOLD OPERATOR Respiratory Rate 18 06/02/2020 10:17 AM MANIFOLD OPERATOR Oxygen Saturation 98% 06/02/2020 10:17 AM MANIFOLD OPERATOR Inhaled Oxygen Concentration - - Weight 79.4 kg (175 lb) 06/02/2020 10:17 AM MANIFOLD OPERATOR Height 152.4 cm (5') 06/02/2020 10:17 AM MANIFOLD OPERATOR Body Mass Index 34.18 06/02/2020 10:17 AM MANIFOLD OPERATOR documented in this encounter Patient Instructions * Patient Instructions* Jacqueline Fuller NP - 06/02/2020 10:00 AM MANIFOLD OPERATOR Orders for AMS STAFF to arrange No new labs or orders Orders for Tess Benedict to arrange Get plenty of rest and increase your fluids (water) Use nasal saline rinses twice a day You may use tylenol for pain/fevers You can use Mucinex twice a day for congestion (take with food) Sleep with the head of your bed elevated You can use a cool mist vaporizer for sleep Call/return if your symptoms worsen or persist No follow-ups on file. No orders of the defined types were placed in this encounter. A brief review of all your problems, medications, and orders from today ICD-9-CM ICD-10-CM 1. Acute bacterial rhinosinusitis 461.9 J01.90 doxycycline (VIBRAMYCIN) 100 mg capsule B96.89 guaiFENesin 1,200 mg tablet extended release 12hr PLEASE BRING IN ALL PILL BOTTLES TO EVERY OFFICE VISIT, THIS IS ESSENTIAL FOR ACCURATE REFILLS AND MAINTAINING AN ACCURATE MEDICATION LIST. FOLD OPERATOR FOLD OPERATOR FOLD OPERATOR documented in this encounter Ordered Prescriptions Prescription Sig Dispense Quantity Refills Last Filled Start Date End Date guaiFENesin 1,200 mg tablet extended release 12hrIndications:Acut e bacterial rhinosinusitis Take 1 tablet by mouth 2 (two) times a day 60 each 1 06/02/2020 1 doxycycline (VIBRAMYCIN) 100 mg capsuleIndications:A cute bacterial rhinosinusitis Take 1 tablet/capsu le (100 mg total) by mouth 2 (two) times a day for 10 days 20 tablet/capsule 06/02/2020 0 documented in this encounter Progress Notes * Jacqueline Fuller NP - 06/02/2020 10:00 AM CST Subjective/Objective Patient ID: Tess Benedict is a 84 y.o. female. Chief Complaint COVID-19 EVALUATION HPI Patient reports on Monday she developed symptoms of a head cold. She states she was out in the wind and just did not feel well after that. No known exposure to COVID-19. Review of Systems HENT: Positive for congestion (Purulent discharge. ), ear pain and postnasal drip. Negative for sinus pressure, sinus pain and sore throat. Respiratory: Positive for cough. Negative for chest tightness and shortness of breath. Cardiovascular: Negative for chest pain and palpitations. Gastrointestinal: Negative for diarrhea, nausea and vomiting. Genitourinary: Negative for difficulty urinating. Neurological: Negative for dizziness and light-headedness. Physical Exam Vitals signs and nursing note reviewed. Constitutional: Appearance: Normal appearance. HENT: Head: Normocephalic and atraumatic. Right Ear: Tympanic membrane, ear canal and external ear normal. There is no impacted cerumen. Left Ear: There is impacted cerumen. Nose: Right Turbinates: Swollen. Left Turbinates: Swollen. Mouth/Throat: Mouth: Mucous membranes are moist. Cardiovascular: Rate and Rhythm: Normal rate and [...] and all orders for this visit: Acute bacterial rhinosinusitis (J01.90, B96.89) (Primary) Assessment & Plan: Patient presents with congestion, purulent discharge, ear pain/pressure and PND most consistent with acute sinusitis. She reports she has been using sinus rinse, flonase and Muccinex OTC. COVID-19 rapid testing negative and no known COVID-19 exposure. She will continue quarantine until symptoms improving. She will begin antibiotic therapy and complete as prescribed. She will call with persistent or unresolved symptoms. Orders: - doxycycline (VIBRAMYCIN) 100 mg capsule; Take 1 tablet/capsule (100 mg total) by mouth 2 (two) times a day for 10 days - guaiFENesin 1,200 mg tablet extended release 12hr; Take 1 tablet by mouth 2 (two) times a day Cosigned by Pepper Morgan MD at 06/02/2020 4:26 PM MANIFOLD OPERATOR FOLD OPERATOR FOLD OPERATOR documented in this encounter Miscellaneous Notes * Assessment & Plan Note - Jacqueline Fuller NP - 06/02/2020 11:05 AM MANIFOLD OPERATOR Associated Problem(s): Acute bacterial rhinosinusitis (Resolved 06/01/2021) Patient presents with congestion, purulent discharge, ear pain/pressure and PND most consistent with acute sinusitis. She reports she has been using sinus rinse, flonase and Muccinex OTC. COVID-19 rapid testing negative and no known COVID-19 exposure. She will continue quarantine until symptoms improving. She will begin antibiotic therapy and complete as prescribed. She will call with persistent or unresolved symptoms. FOLD OPERATOR documented in this encounter Plan of Treatment Not on file documented as of this encounter Visit Diagnoses Diagnosis Acute bacterial rhinosinusitis- Primary documented in this encounter Additional Health Concerns Infection Onset Date Last Indicated Resolved Time COVID: Suspected 06/01/2020 06/01/2020 06/15/2020 3:07 AM MANIFOLD OPERATOR documented as of this encounter Care Teams Financial Sales Professional Relationship Specialty Start Date End Date Pepper Morgan MD PCP - General 09/16/16 Hank Garibay MD [address] [facility] [address] [place] [address] Surgeon Orthopedic Surgery 03/27/17 Jacky Murry MD [address] [place] [address] [address] [place] [address] Ophthalmology 03/27/17 Puma Mckenzie MD [address] [place] [address] [address] [place] [address] Surgeon Orthopedic Surgery 07/11/19 documented as of this encounter
--- OUTSIDE RECORDS SUMMARY | 2024-06-18 19:01 | XMS_ITS | Encounter Summary ---
Author Organization [facility] Address [address] [facility] [address] [place] [address] Care Team Providers Care Sales And Merchandising Representative Name Role Phone Pepper Morgan MD Primary Care Provider + [phone] Hank Garibay MD Unavailable [phone] Jacky Murry MD Unavailable [phone] Puma Mckenzie MD Unavailable [phone] Reason for Visit * Reason Comments Post-op Encounter Details Date Type Department Care Team (Late st Contact Info) Description 08/22/2019 11:45 AM PRINCIPAL EMBEDDED SOFTWARE ENGINEER Office Visit [facility] Orthopedics and Sports Medicine [address] [place] [address] [address] [phone] Puma Mckenzie MD [address] [place] [address] [address] [place] [address] Aftercare following joint replacement surgery, unspecified joint (Primary Dx) Social History Tobacco Use Types [...] on file Legal Sex Female 4:33 AM PRINCIPAL EMBEDDED SOFTWARE ENGINEER Gender Identity Not on file Sexual Orientation Not on file Occupation Industry Job Start Date Job End Date retired Not on file Not on file Not on file documented as of this encounter Last Filed Vital Signs Vital Sign Reading Time Taken Comments Blood Pressure 150/80 08/22/2019 11:29 AM PRINCIPAL EMBEDDED SOFTWARE ENGINEER Pulse 58 08/22/2019 11:29 AM PRINCIPAL EMBEDDED SOFTWARE ENGINEER Temperature - - Respiratory Rate - - Oxygen Saturation - - Inhaled Oxygen Concentration - - Weight 88.5 kg (195 lb) 08/22/2019 11:29 AM PRINCIPAL EMBEDDED SOFTWARE ENGINEER Height 152.4 cm (5') 08/22/2019 11:29 AM PRINCIPAL EMBEDDED SOFTWARE ENGINEER Body Mass Index 38.08 08/22/2019 11:29 AM PRINCIPAL EMBEDDED SOFTWARE ENGINEER documented in this encounter Progress Notes * Puma Mckenzie MD - 08/22/2019 11:45 AM CST POST-OPERATIVE PROGRESS NOTE History of Present Illness Patient is a 83 y.o. female who presents for a 6 week follow-up s/p right total hip arthroplasty. The patient has no complaints at this time and has been progressing well. ROS Negative except for stated in HPI. Physical Exam Patient is A&Ox3, NAD. Incision is well healed. Good ROM without impingement. No limp or antalgic gait. 2+ distal pulses, cap refill < 2 seconds. SILT, good DF/PF. Assessment 1. S/P right ASHLEE, progressing well. Plan 1. Continue WBAT and activity as tolerated. 2. May discontinue post-operative DVT prophylaxis. 3. Follow up at one year for re-evaluation. CIPAL EMBEDDED SOFTWARE ENGINEER documented in this encounter Plan of Treatment Not on file documented as of this encounter Visit Diagnoses Diagnosis Aftercare following joint replacement surgery, unspecified joint- Primary documented in this encounter Care Teams Sales And Merchandising Representative Relationship Specialty Start Date End Date Pepper Morgan MD PCP - General 09/16/16 Hank Garibay MD [address] [place] [address] [address] [address] Surgeon Orthopedic Surgery 03/27/17 Jacky Murry MD [address] [facility] [address] [place] [address] Ophthalmology 03/27/17 Puma Mckenzie MD [address] [facility] [address] [place] [address] Surgeon Orthopedic Surgery 07/11/19 documented as of this encounter
--- OUTSIDE RECORDS SUMMARY | 2024-06-18 19:01 | XMS_ITS | Encounter Summary ---
Author Organization [facility] Medical [facility] Address [address] [facility] [address] [place] [address] Care Team Providers Care Learning And Development Assistant Name Role Phone Pepper Morgan MD Primary Care Provider + [phone] Hank Garibay MD Unavailable [phone] Jacky Murry MD Unavailable [phone] Puma Mckenzie MD Unavailable [phone] Encounter Details Date Type Department Care Team (Late st Contact Info) Description 08/09/2019 Telephone [facility] [address] [place] [address] Milana Fuentes, RN Social History Tobacco Use Types Packs/Day [...] on file Legal Sex Female 4:33 AM HEALTHCARE SALES REPRESENTATIVE Gender Identity Not on file Sexual Orientation Not on file Occupation Industry Job Start Date Job End Date retired Not on file Not on file Not on file documented as of this encounter Ordered Prescriptions Prescription Sig Dispense Quantity Refills Last Filled Start Date End Date furosemide (LASIX) 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: Bilateral leg edema Take 1 tablet (20 mg total) by mouth daily 30 tablet 08/12/2019 09/25/2019 documented in this encounter Miscellaneous Notes * Telephone Encounter - Anuja Rome RN - 08/12/2019 9:18 AM HEALTHCARE SALES REPRESENTATIVE Called and spoke to pt. Discussed DR RANGEL comments and recommendations. Instructed to stop taking iron tablets for now. Advised to resume Lasix as prescribed to help with potassium regulation and to eat low potassium foods. Pt states, will continue to take propranolol. I'm afraid to try any more new medications. To DR RANGEL: Update THCARE SALES REPRESENTATIVE * Telephone Encounter - Pepper Morgan MD - 08/10/2019 7:32 PM HEALTHCARE SALES REPRESENTATIVE 1. She may stop iron 2. She is on Aldactone which will make her retain potassium. If she takes the Lasix 20 mg as prescribed her potassium will be fine. If he does not want to take the Lasix then she will need to eat a low-potassium diet. Offer her information sheet about foods that contain potassium= in my files in the patient's rooms 3. She is on propranolol for tremor, if that is not working on its own the only other thing we can do is try MYSOLINE 50 mg, start with 1/2 tablet at nighttime for the 1st week then go to a half tablet twice daily, then go to a whole tablet twice daily and let me know how things are going in a month # 60 pills THCARE SALES REPRESENTATIVE * Telephone Encounter - Milana Fuentes RN - 08/09/2019 5:01 PM CST Called informed pt we would talk to her on Monday Pt verbalized understanding THCARE SALES REPRESENTATIVE * Telephone Encounter - Milana Fuentes RN - 08/09/2019 12:19 PM HEALTHCARE SALES REPRESENTATIVE Called and spoke with the pt She states that the tremors are really no better but no worst Pt cbc was good HGB 13.2 HCT 44.3 and she would like to come off iron because it causes constipation Pt states that the swelling in the legs are some better Pt states that she is not on lasix 20 mg daily Pt states that she takes the aldactone 25 mg daily Pt has a elevation of potassium of 5.2 on her bmp everything else was normal Pt does not take any supplements or anything with potassium in it and she does not eat a lot of foods with potassium in them TOKMS:pt tremors are no better no worst Pt hgb is good at 13.2 wants to come off the iron due to the fact is causes her severe constipation Pt leg swelling is some better pt does not take lasix even though it is on her medication list Pt does take aldactone Her potassium on her bmp is 5.2 Please advise THCARE SALES REPRESENTATIVE THCARE SALES REPRESENTATIVE documented in this encounter Plan of Treatment Not on file documented as of this encounter Visit Diagnoses Diagnosis Bilateral leg edema Edema documented in this encounter Discontinued Medications Medication Sig Discontinue Reason Start Date End Da te ferrous sulfate 325 mg (65 mg of elemental iron) tabletIndications:Iron Deficiency Anemia,Anemia prevention Take 1 tablet (325 mg total) by mouth daily with breakfast Side effects 07/11/2019 08/12/2019 furosemide (LASIX) 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:Bilat eral leg edema Take 1 tablet (20 mg total) by mouth daily Reorder 07/24/2019 08/12/2019 documented as of this encounter Care Teams Learning And Development Assistant Relationship Specialty Start Date End Date Pepper Morgan MD PCP - General 09/16/16 Hank Garibay MD [address] [place] [address] [address] [place] [address] Surgeon Orthopedic Surgery 03/27/17 Jacky Murry MD [address] [place] [address] [address] [place] [address] Ophthalmology 03/27/17 Puma Mckenzie MD [address] [facility] [address] [place] [address] Surgeon Orthopedic Surgery 07/11/19 documented as of this encounter
--- OUTSIDE RECORDS SUMMARY | 2024-06-18 19:01 | XMS_ITS | Encounter Summary ---
Author Organization [facility] Address [address] [facility] [address] [place] [id number] Care Team Providers Care Historical Manuscripts Curator Name Role Phone Pepper Morgan MD Primary Care Provider + [phone] Hank Garibay MD Unavailable [phone] Jacky Murry MD Unavailable [phone] Puma Mckenzie MD Unavailable [phone] Encounter Details Date Type Department Care Team (Late st Contact Info) Description 06/03/2020 Telephone [facility] [address] [place] [id number] Pepper Morgan MD [address] [place] [address] Social History Tobacco Use Types Packs/Day Years [...] on file Legal Sex Female 4:33 AM FINGERNAIL SCULPTOR Gender Identity Not on file Sexual Orientation Not on file Occupation Industry Job Start Date Job End Date retired Not on file Not on file Not on file documented as of this encounter Ordered Prescriptions Prescription Sig Dispense Quantity Refills Last Filled Start Date End Date carbidopa-levodopa CR (SINEMET CR) 50-200 mg per CR tabletIndications: Parkinsonism Take 1 tablet by mouth nightly 30 tablet 1 06/04/2020 0 documented in this encounter Miscellaneous Notes * Telephone Encounter - Milana Fuentes RN - 06/04/2020 9:48 AM CST carbidopa-levodopa CR (SINEMET CR) 50-200 mg per CR tablet ??Take 1 tablet by mouth nightly, Starting Katy 06/04/2020, Phone In Called and spoke with the pt She will take the 4 days of the carbidopa and the sinemet Until she runs out They she will try the sinemet cr for 8$ She will call us back with any questions or problems ERNAIL SCULPTOR * Telephone Encounter - Pepper Morgan MD - 06/03/2020 7:25 PM FINGERNAIL SCULPTOR Be sure that she and this is aware that her question is a tough NUT to crack This is because I do not have access to their financial information regarding cost of these medications. The insurance company MAKES A BEHIND THE DOOR DECISION ON WHAT they will pay and thus the doctor never knows how much this will cost the patient--I AM GOING TO TRY SOMETHING ELSE IN SEE IF IT ISLESS EXPENSIVE AND BETTER TOLERATE Check the ramos for #30 Sinemet CR 50/200, that may not cause nausea and take her through the entire day with 1 pill ERNAIL SCULPTOR * Telephone Encounter - Katharina Bateman RN - 06/03/2020 1:57 PM CST Called and talked to Edmund. Katharina looked up the cox ramos of both Sinemet 25-100 BID and for #60 it would cost $25.18. Called to let pt know this and she states that they added just the Carbidopa 25 mg TID to the list also. She states she got four days worth last time which was 12 pills that cost her $70 for which the pt states she cannot afford this with all of the other medications she is on. Called back to [facility]. They looked up just the Carbidopa 25 mg TID and for cox ramos of #90 would cost the pt $142.92. To Dr. RANGEL: The ramos for Carbidopa 25 mg TID #90 is $142.92 which pt would not be able to afford this month along with all the other medications she is taking. Please advise. TY ERNAIL SCULPTOR * Telephone Encounter - Pepper Morgan MD - 06/03/2020 1:05 PM FINGERNAIL SCULPTOR This is a ridiculous ramos, these medications are generic on are not this costly. Check the ramos at [facility], $70.00-- that is Advisity for 4 pills!! , she could get 4000 pills for that cost ERNAIL SCULPTOR * Telephone Encounter - Katharina Bateman RN - 06/03/2020 12:58 PM CST Called and talked to pt. She states her medications for this month are too much. She states she is now using her [employer] money to pay for her medications. The pt is getting a new insurance plan in June that is supposed to help with the cost of her medications. She picked up only 4 Sinemet pills which cost her $70. She states she cannot afford to keep taking this medication this month. The pt states she takes so many other medications too that she has to have a map to know when to take all of them. She would like to know if there is anything Dr. RANGEL would recommend. To Dr. RANGEL: Pt cannot afford more of the Sinemet medication this month. Please see above and advise. TY ERNAIL SCULPTOR * Telephone Encounter - Eri Owesn - 06/03/2020 9:45 AM CST [facility][phone] patient Pt would like a nurse to give her a call back regarding her medications. ERNAIL SCULPTOR documented in this encounter Plan of Treatment Not on file documented as of this encounter Visit Diagnoses Not on filedocumented in this encounter Discontinued Medications Medication Sig Discontinue Reason Start Date End Da te carbidopa-levodopa (SINEMET) 25-100 mg per tabletIndications:Jaida garcia Take 1 tablet by mouth 2 (two) times a day Alternate therapy 06/02/2020 06/04/2020 carbidopa (LODOSYN) 25 mg tabletIndications:Jaida garcia Take 1 tablet (25 mg total) by mouth 3 (three) times a day Alternate therapy 06/02/2020 06/04/2020 documented as of this encounter Additional Health Concerns Infection Onset Date Last Indicated Resolved Time COVID: Suspected 06/01/2020 06/01/2020 06/15/2020 3:07 AM FINGERNAIL SCULPTOR documented as of this encounter Care Teams Historical Manuscripts Curator Relationship Specialty Start Date End Date Pepper Morgan MD PCP - General 09/16/16 Hank Garibay MD [address] [facility] [address] [place] [address] Surgeon Orthopedic Surgery 03/27/17 Jacky Murry MD [address] [facility] [address] [place] [address] Ophthalmology 03/27/17 Puma Mckenzie MD [address] [facility] [address] [place] [address] Surgeon Orthopedic Surgery 07/11/19 documented as of this encounter
--- OUTSIDE RECORDS SUMMARY | 2024-06-18 19:01 | XMS_ITS | Encounter Summary ---
Author Organization [facility] Address [address] [place] [address] Phone Care Team Providers Care Overlay Plastician Name Role Phone Pepper Morgan MD Primary Care Provider + [phone] Hank Garibay MD Unavailable [phone] Jacky Murry MD Unavailable [phone] Puma Mckenzie MD Unavailable [phone] Neha Jackson PT Unavailable Unavailable Stalin Arauz MD Unavailable [phone] Tiffany Rojas Unavailable [phone] Klaus Deshpande MD Unavailable [phone] Andrea Waddell RN Unavailable [phone] Encounter Details Date Type Department Care Team (Late st Contact Info) Description 06/02/2020 Orders Only [facility] [address] [place] [address] Scanning, Provider Social History Tobacco [...] file Legal 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 Gender Identity Not on file Sexual Orientation Not on file Occupation Industry Job Start Date Job End Date retired Not on file Not on file Not on file documented as of this encounter Plan of Treatment Not on file documented as of this encounter Procedures Procedure Name Priority Date/Time Associated Diagnosis Comments SCAN - LABS 06/02/2020 documented in this encounter Results * SCAN - LABS (06/02/2020) us Provider Scanning Edited Result - Final documented in this encounter Visit Diagnoses Not on filedocumented in this encounter Additional Health Concerns Infection Onset Date Last Indicated Resolved Time COVID: Suspected 06/01/2020 06/01/2020 06/15/2020 3:07 AM WATER CONTROL SUPERVISOR COVID: Suspected 04/21/2021 04/21/2021 04/21/2021 4:25 PM CDT COVID: Suspected 10/14/2021 10/14/2021 10/14/2021 1:53 PM CDT COVID: Suspected 02/16/2023 02/16/2023 02/16/2023 8:33 AM CDT COVID: Suspected 06/14/2023 06/14/2023 06/14/2023 6:44 PM WATER CONTROL SUPERVISOR COVID: Suspected 06/24/2023 06/24/2023 06/24/2023 12:46 PM WATER CONTROL SUPERVISOR documented as of this encounter Care Teams Overlay Plastician Relationship Specialty Start Date End Date Pepper Morgan MD PCP - General 09/16/16 Hank Garibay MD [address] [place] [address] [address] [place] [address] Surgeon Orthopedic Surgery 03/27/17 Jacky Murry MD [address] [place] [address] [address] [place] [address] Ophthalmology 03/27/17 Puma Mckenzie MD [address] [facility] [address] [place] [address] Surgeon Orthopedic Surgery 07/11/19 Neha Jackson, PT Physical Therapist Physical Therapy 12/01/21 Stalin Arauz MD [address] [facility] [address] [place] [address] Consulting Physician Cardiology 12/08/22 Tiffany Rojas PA [address] [facility] [address] [place] [address] Gastroenterology 12/30/22 Klaus Deshpande MD [address] [facility] [address] [place] [address] Consulting Physician Neurology 06/13/23 Andrea Waddell, XU [address] [place] [address] [address] [place] [address] Hand Paint Mixer 01/11/24 01/14/24 documented as of this encounter
--- OUTSIDE RECORDS SUMMARY | 2024-06-18 19:01 | XMS_ITS | Encounter Summary ---
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 Gender Identity Not on file Sexual Orientation Not on file Occupation Industry Job Start Date Job End Date retired Not on file Not on file Not on file documented as of this encounter Plan of Treatment Not on file documented as of this encounter Visit Diagnoses Not on filedocumented in this encounter Care Teams Body And Fender Mechanic Apprentice Relationship Specialty Start Date End Date Pepper Morgan MD PCP - General 3/31/17 Hank Garibay MD [address] [facility] [address] [place] [address] Surgeon Orthopedic Surgery 03/27/17 Jacky Murry MD [address] [facility] [address] [place] [address] Ophthalmology 03/27/17 Puma Mckenzie MD [address] [facility] [address] [place] [address] Surgeon Orthopedic Surgery 07/11/19 documented as of this encounter
--- OUTSIDE RECORDS SUMMARY | 2024-06-18 19:01 | XMS_ITS | Encounter Summary ---
Author Organization [facility] Address [address] [facility] [address] [place] [id number] Care Team Providers Care Powder Line Repairer Name Role Phone Pepper Morgan MD Primary Care Provider + [phone] Hank Garibay MD Unavailable [phone] Jacky Murry MD Unavailable [phone] Puma Mckenzie MD Unavailable [phone] Reason for Visit * Reason Comments Follow-up 6 month Encounter Details Date Type Department Care Team (Late st Contact Info) Description 11/18/2019 9:00 AM CDT Office Visit [facility] [address] [place] [address] Pepper Morgan MD [address] [place] [address] Spinal stenosis of lumbar region with neurogenic claudication (Primary Dx); Cervical radiculopathy; 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; 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); Restless legs syndrome; Constipation due to opioid therapy; Hereditary essential tremor; Parkinson's disease (tremor, stiffness, slow motion, unstable posture) (CMS/HCC); Iron deficiency anemia; History of melanoma; S/P gastroplasty Social History Tobacco Use Types Packs/Day Years [...] file 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 Gender Identity Not on file Sexual Orientation Not on file Occupation Industry Job Start Date Job End Date retired Not on file Not on file Not on file documented as of this encounter Last Filed Vital Signs Vital Sign Reading Time Taken Comments Blood Pressure 149/79 11/18/2019 9:04 AM CDT RODRÍGUEZ E CUFF Pulse 59 11/18/2019 9:04 AM CDT Temperature 36.2 ??C (97.1 ??F) 11/18/2019 9:02 AM CD T Respiratory Rate 16 11/18/2019 9:02 AM CDT Oxygen Saturation 97% 11/18/2019 9:02 AM CDT Inhaled Oxygen Concentration - - Weight 84.5 kg (186 lb 3.2 oz) 11/18/2019 9:02 A M CDT Height - - Body Mass Index 36.36 08/22/2019 11:29 AM 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 Referral is open to Dr. 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 CBC iron profile = iron deficiency anemia, LDL,chemistry panel = benign hypertension medication monitoring, before annual physical 6 months ORDERS FOR Tess Benedict TO ARRANGE 1. Medication changes Keep pramipexole 0.125 take 1 tablet at 4 in the evening, It is optional to take 2 more tablets in any 24 hour period --you may dose again at bedtime, you may take 1 of these before and activity that requires a steadyhand for his many is 3 in a day Patient Care Team: Pepper Morgan MD as PCP - General Hank Garibay MD as Surgeon (Orthopedic Surgery) Jacky Murry MD (Ophthalmology) Puma Mckenzie MD as Surgeon (Orthopedic Surgery) Return in about 6 months (around 05/19/2020) for Annual physical, Recheck. Orders Placed This Encounter Procedures ??? Cholesterol, LDL, direct ??? Comprehensive metabolic panel A brief review of all your problems, medications, and orders from today ICD-9-CM ICD-10-CM 1. Spinal stenosis of lumbar region with neurogenic claudication 724.[address] (CYMBALTA) 20 mg capsule meloxicam (MOBIC) 7.5 mg tablet traMADoL (ULTRAM) 50 mg tablet 2. Cervical radiculopathy 723.[address] (CYMBALTA) 20 mg capsule meloxicam (MOBIC) 7.5 mg tablet traMADoL (ULTRAM) 50 mg tablet 3. Benign hypertension 401.1 I10 felodipine (PLENDIL) 5 mg 24 hr tablet spironolactone (Aldactone) 25 mg tablet propranoloL (INDERAL) 20 mg tablet Cholesterol, LDL, direct Comprehensive metabolic panel 4. retirement (current) use of non-steroidal anti-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s (nsaid) V58.[address] (PROTONIX) 20 mg EC tablet 5. Restless legs syndrome 333.94 G25.81 pramipexole (MIRAPEX) 0.125 mg tablet DISCONTINUED: pramipexole (MIRAPEX) 0.125 mg tablet 6. Constipation due to opioid therapy 564.09 K59.03 senna-docusate (PERICOLACE) 8.6-50 mg E935.2 T40.2X5A 7. Hereditary essential tremor 333.1 G25.0 propranoloL (INDERAL) 20 mg tablet 8. Parkinson's disease (tremor, stiffness, slow motion, unstable posture) (CMS/HCC) 332.0 G20 pramipexole (MIRAPEX) 0.125 mg tablet DISCONTINUED: pramipexole (MIRAPEX) 0.125 mg tablet 9. Iron deficiency anemia 280.9 D50.9 10. History of melanoma V10.82 Z85.820 11. S/P gastroplasty V45.89 Z98.890 Done for bariatric surgery at age 44 For your records I have provided this immunization report Immunization History Administered Date(s) Administered ??? Influenza, Quadrivalent, Split, Intramuscular 03/28/2016, 04/04/2017 ??? Influenza, Split 05/18/2012 ??? Influenza, Trivalent, Adjuvanted, Intramuscular 04/17/2019 ??? Influenza, Trivalent, High Dose, Split, Preservative Free, Intramuscular 03/23/2015, 03/12/2018, 04/17/2019 ??? Influenza, Trivalent, Intramuscular 03/25/2014, 04/17/2015 ??? Influenza, Unspecified 03/13/2018 ??? Pneumococcal Conjugate PCV 13 02/18/2015 ??? Pneumococcal Polysaccharide PPV23 05/17/2002, 04/26/2016 ??? Tdap 05/18/2011 Primary Pharmacy/DME suppliers: [id number] - [place] - [address] [place] [address] [place] [address] PLEASE BRING IN ALL PILL BOTTLES TO EVERY OFFICE VISIT, THIS IS ESSENTIAL FOR ACCURATE REFILLS AND MAINTAINING AN ACCURATE MEDICATION LIST. PLEASE SIGN UP FOR MyCHART so that you may have access to your labs and chart documentation IF YOU HAVE TROUBLE WITH THIS PROCESS CALL [phone] documented in this encounter Ordered Prescriptions Prescription Sig Dispense Quantity Refills Last Filled Start Date End Date pramipexole (MIRAPEX) 0.125 mg tabletIndications:R estless legs syndrome,Parkinson' s disease (tremor, stiffness, slow motion, unstable posture) (HCC) Take 1 tablet (0.125 mg total) by mouth 3 (three) times a day as needed (Tremor, restless leg) Take 1-2 tablets by mouth every day 270 tablet 1 11/18/2019 0 propranoloL (INDERAL) 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:B enign hypertension,Heredi tary essential tremor Take 1 tablet (20 mg total) by mouth 2 (two) times a day 180 tablet 2 11/18/2019 0 senna-docusate (PERICOLACE) 8.6-50 mgIndications:const ipation Take 1 tablet by mouth nightly 90 tablet 1 11/18/2019 0 traMADoL (ULTRAM) 50 mg tabletIndications:S jenni stenosis of lumbar region with neurogenic claudication,Cervic al radiculopathy Take 1 tablet (50 mg total) by mouth 2 (two) times a day as needed for pain 60 tablet 5 11/18/2019 0 spironolactone (Aldactone) 25 mg tabletIndications:B enign hypertension Take 1 tablet (25 mg total) by mouth daily 90 tablet 1 11/18/2019 0 pramipexole (MIRAPEX) 0.125 mg tabletIndications:R estless legs syndrome,Parkinson' s disease (tremor, stiffness, slow motion, unstable posture) (HCC) Take 1-2 tablets by mouth every day 120 tablet 1 11/18/[address] (PROTONIX) 20 mg EC tabletIndications:L livier term (current) use of non-steroidal anti-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s (nsaid) Take 1 tablet (20 mg total) by mouth daily With the largest meal 90 tablet 1 11/18/2019 0 meloxicam (MOBIC) 7.5 mg tabletIndications:S jenni stenosis of lumbar region with neurogenic claudication,Cervic al radiculopathy Take 1 tablet (7.5 mg total) by mouth daily With the largest meal 90 tablet 1 11/18/2019 0 felodipine (PLENDIL) 5 mg 24 hr tabletIndications:B enign hypertension Take 1 tablet (5 mg total) by mouth daily 90 tablet 1 11/18/2019 0 DULoxetine (CYMBALTA) 20 mg capsuleIndications: Spinal stenosis of lumbar region with neurogenic claudication,Cervic al radiculopathy Take 2 capsules (40 mg total) by mouth daily 180 capsule 1 11/18/2019 0 documented in this encounter Progress Notes * Pepper Morgan MD - 11/18/2019 9:00 AM CDT ASSESSMENT AND PLAN Patient Instructions ORDERS FOR AMS STAFF TO ARRANGE 1. Referral is open to Dr. 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 CBC iron profile = iron deficiency anemia, LDL,chemistry panel = benign hypertension medication monitoring, before annual physical 6 months ORDERS FOR Tess Benedict TO ARRANGE 1. Medication changes Keep pramipexole 0.125 take 1 tablet at 4 in the evening, It is optional to take 2 more tablets in any 24 hour period --you may dose again at bedtime, you may take 1 of these before and activity that requires a steadyhand for his many is 3 in a day Patient Care Team: Pepper Morgan MD as PCP - General Hank Garibay MD as Surgeon (Orthopedic Surgery) Jacky Murry MD (Ophthalmology) Puma Mckenzie MD as Surgeon (Orthopedic Surgery) Return in about 6 months (around 05/19/2020) for Annual physical, Recheck. Orders Placed This Encounter Procedures ??? Cholesterol, LDL, direct ??? Comprehensive metabolic panel A brief review of all your problems, medications, and orders from today ICD-9-CM ICD-10-CM 1. Spinal stenosis of lumbar region with neurogenic claudication 724.[address] (CYMBALTA) 20 mg capsule meloxicam (MOBIC) 7.5 mg tablet traMADoL (ULTRAM) 50 mg tablet 2. Cervical radiculopathy 723.[address] (CYMBALTA) 20 mg capsule meloxicam (MOBIC) 7.5 mg tablet traMADoL (ULTRAM) 50 mg tablet 3. Benign hypertension 401.1 I10 felodipine (PLENDIL) 5 mg 24 hr tablet spironolactone (Aldactone) 25 mg tablet propranoloL (INDERAL) 20 mg tablet Cholesterol, LDL, direct Comprehensive metabolic panel 4. retirement (current) use of non-steroidal anti-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s (nsaid) V58.[address] (PROTONIX) 20 mg EC tablet 5. Restless legs syndrome 333.94 G25.81 pramipexole (MIRAPEX) 0.125 mg tablet DISCONTINUED: pramipexole (MIRAPEX) 0.125 mg tablet 6. Constipation due to opioid therapy 564.09 K59.03 senna-docusate (PERICOLACE) 8.6-50 mg E935.2 T40.2X5A 7. Hereditary essential tremor 333.1 G25.0 propranoloL (INDERAL) 20 mg tablet 8. Parkinson's disease (tremor, stiffness, slow motion, unstable posture) (CMS/HCC) 332.0 G20 pramipexole (MIRAPEX) 0.125 mg tablet DISCONTINUED: pramipexole (MIRAPEX) 0.125 mg tablet 9. Iron deficiency anemia 280.9 D50.9 10. History of melanoma V10.82 Z85.820 11. S/P gastroplasty V45.89 Z98.890 Done for bariatric surgery at age 44 For your records I have provided this immunization report Immunization History Administered Date(s) Administered ??? Influenza, Quadrivalent, Split, Intramuscular 03/28/2016, 04/04/2017 ??? Influenza, Split 05/18/2012 ??? Influenza, Trivalent, Adjuvanted, Intramuscular 04/17/2019 ??? Influenza, Trivalent, High Dose, Split, Preservative Free, Intramuscular 03/23/2015, 03/12/2018, 04/17/2019 ??? Influenza, Trivalent, Intramuscular 03/25/2014, 04/17/2015 ??? Influenza, Unspecified 03/13/2018 ??? Pneumococcal Conjugate PCV 13 02/18/2015 ??? Pneumococcal Polysaccharide PPV23 05/17/2002, 04/26/2016 ??? Tdap 05/18/2011 Primary Pharmacy/DME suppliers: [id number] - [place], [place] - [address] AT [facility] [address] [place] [address] PLEASE BRING IN ALL PILL BOTTLES TO EVERY OFFICE VISIT, THIS IS ESSENTIAL FOR ACCURATE REFILLS AND MAINTAINING AN ACCURATE MEDICATION LIST. PLEASE SIGN UP FOR MyCHART so that you may have access to your labs and chart documentation IF YOU HAVE TROUBLE WITH THIS PROCESS CALL [phone] CHIEF COMPLAINT Follow-up (6 month) HISTORY OF PRESENT ILLNESS Tess Chente Manningjaylene returns today for her follow-up the sick call 8 weeks ago as well as her scheduled SIX-MONTH recheck aboutChronic medical problems and discuss her concerns, Review new orders, and Update Medication Refill Management. Important details of this conversation, exam, and plan for care are summarized at the top and bottom of this comprehensive note for the readers quick access to the information. ORDERS FROM LAST VISIT 09/25/[address] Yenifer Gardiner for neck pain low back pain 2. C-spine x-ray today with flexion extension views copy of the disc to Dr. Yenifer Gardiner Copy of the lumbar spine x-ray also be made for Dr. Yenifer Gardiner 3. Refer remains open for physical therapy neck and back program, she will decide about taking dexterin [facility] or at the local senior center. The decision to be made based on where she will continuelong-term exercise and fitness strengthening after the therapy is done. ? Orders for Tess I Marichuy to arrange 1. Medication changes -Stop aspirin 325 mg, this is no longer needed and was used to prevent blood clots after the June 2019 right hip replacement surgery. You do not need baby aspirin. -start Cymbalta 20 mg every morning for 1 week then increase to 2 tablets 40 mg every morning. Thisis used for pain problems with spinal stenosis in the back and for the arthritis in the neck and may be use long-term. -the tramadol 50 mg 1/2 to 1 tablet up to twice daily, some people use 1/2 tablet 4 times daily with her Tylenol and use the medication on as-needed basis. Dose 650 mg ER Tylenol with each dose. -continue Mobic 7.5 mg daily for arthritis pain ?? 2. Continue home blood pressure monitoring, I recommend testing mid day DETAILS REGARDING THIS VISIT: Tess reports feeling fair : 1. Spinal stenosis of lumbar region with neurogenic claudication, cervical radiculopathy, contact pain syndrome Spinal stenosis much better on Cymbalta taking 40 mg daily, blood pressure well controlled with medication no constipation or side effects will refill. She has been able to get good relief with tramadol using mostly no more than 1 tablet daily but she has up to 2 she can take for the severe problem. She would like to do more walking but it does cause pain with her back and numbness in her legs. She wanted to get a motorized wheelchair however she does not qualify. She is encouraged to use a walker and only use walking as a means to get from here to there as opposed to an exercise walk. She will be using recumbent cycling and sitting exercises for her strength training - DULoxetine DR (CYMBALTA) 20 mg capsule; Take 2 capsules (40 mg total) by mouth daily Dispense: 180 capsule; Refill: 1 - meloxicam (MOBIC) 7.5 mg tablet; Take 1 tablet (7.5 mg total) by mouth daily With the largest meal Dispense: 90 tablet; Refill: 1 - traMADoL (ULTRAM) 50 mg tablet; Take 1 tablet (50 mg total) by mouth 2 (two) times a day as needed for pain Dispense: 60 tablet; Refill: 5 3. 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 She is free of her tremor on her left hand previously present from her familial tremor just using the propranolol, unfortunately the right hand is affected by the Parkinson's and is tremulous 4. retirement (current) use of non-steroidal anti-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s (nsaid) Protonix is protecting stomach from the Mobic which she finds very effective for pain control 5. Restless legs syndrome Severe restless leg start early afternoon and medication this be taking by 4:00 p.m. before she is just miserable all night long. She is having a tremor of Parkinson's with cogwheel rigidity right arm. This is unfortunate as this is her strong arm and previously damage to left arm from her melanomaremains weak and atrophic. She is allowed to increase the Mirapex to up to 3 tablets daily as needed to help with the tremor and coordination 6. Constipation due to opioid therapy Per Colace is working great to help with constipation from her tramadol, she does not like MiraLax - senna-docusate (PERICOLACE) 8.6-50 mg; Take 1 tablet by mouth nightly Dispense: 90 tablet; Refill: 1 8. Parkinson's disease (tremor, stiffness, slow motion, unstable posture) (CMS/HCC) Her right arm is showing evidence of Parkinson's tremor, this seems to be progressing slowly over the past 6 months. We will modify the Mirapex dose to accommodate tremor control for her personal physical function understanding the plan to minimize medication exposure - pramipexole (MIRAPEX) 0.125 mg tablet; Take 1-2 tablets by mouth every day Dispense: 120 tablet; Refill: 1 9. Iron deficiency anemia Will update iron profile and CBC at annual visit 10. History of melanoma No physical evidence of recurrence, notable chronic atrophy of the left arm from previous requirements of the resection surgery 11. S/P gastroplasty Gastroplasty in her 40s does not require any special lab testing beyond CBC iron profile to follow-up on her blood loss anemia, she has previous history of normal B12 levels = 500 back in 2017 many years after her surgery SOCIAL HISTORY Social History Tobacco Use ??? Smoking status: Former Smoker Last attempt to quit: 1991 Years since quittin.4 ??? Smokeless tobacco: Never Used Substance Use Topics ??? Alcohol use: Not Currently REVIEW OF SYSTEMS Review of Systems Constitutional: Positive for activity change (Increased exercise and asthma dieting and she lost nearly 19 lb since June) and appetite change. Negative for fatigue, fever and unexpected weight [...] vaginal discharge. Musculoskeletal: Positive for arthralgias ( right hip pain resolved with hip replacement surgery from Dr. Mckenzie, continues to have quite significant left hip pain). Negative for gait problem, jointswelling and myalgias. Skin: Negative for color change and rash. Neurological: Positive for tremors ( starting to get worse especially on her right side, this is her strong side is the left side has been atrophied from surgery in the past). Negative for dizziness,weakness and headaches. Hematological: Negative for adenopathy. Does not bruise/bleed easily. Psychiatric/Behavioral: Positive for sleep disturbance ( restless leg starts about 3-4 o'clock in the afternoon gets worse if she does not take the Mirapex, she is taking only 1 a day. This does helpwith her tremor. She is advised increase to as many as 3 a day as needed). Negative for behavioral problems and dysphoric mood. The patient is not nervous/anxious. MEDICATIONS CHANGED / CLEANED UP THIS VISIT Medications Discontinued During This Encounter Medication Reason ??? DULoxetine DR (CYMBALTA) 20 mg capsule Reorder ??? felodipine (PLENDIL) 5 mg 24 hr tablet Reorder ??? meloxicam (MOBIC) 7.5 mg tablet Reorder ??? pantoprazole DR (PROTONIX) 20 mg EC tablet Reorder ??? pramipexole (MIRAPEX) 0.125 mg tablet Reorder ??? spironolactone (Aldactone) 25 mg tablet Reorder ??? traMADoL (ULTRAM) 50 mg tablet Reorder ??? senna-docusate (PERICOLACE) 8.6-50 mg Reorder ??? propranolol (INDERAL) 20 mg tablet Reorder ??? pramipexole (MIRAPEX) 0.125 mg tablet MEDICATION LIST AT CONCLUSION OF THIS VISIT Current Outpatient Medications Ordered in [facility] Medication Sig Dispense Refill ??? biotin 10,000 mcg capsule Take by mouth ??? cholecalciferol (VITAMIN D3) 2,000 unit tablet Take 2,000 Units by mouth daily ??? DULoxetine DR (CYMBALTA) 20 mg capsule Take 2 capsules (40 mg total) by mouth daily 180 capsule1 ??? felodipine (PLENDIL) 5 mg 24 hr [...] total) by mouth 3 (three) times aday as needed (Tremor, restless leg) Take 1-2 tablets by mouth every day 270 tablet 1 ??? propranoloL (INDERAL) 20 mg tablet Take 1 tablet (20 mg total) by mouth 2 (two) times a day 180tablet 2 ??? senna-docusate (PERICOLACE) 8.6-50 mg Take 1 tablet by mouth nightly 90 tablet 1 ??? spironolactone (Aldactone) 25 mg tablet Take 1 tablet (25 mg total) by mouth daily 90 tablet 1 ??? traMADoL (ULTRAM) 50 mg tablet Take 1 tablet (50 mg total) by mouth 2 (two) times a day as needed for pain 60 tablet 5 ??? ascorbic acid (VITAMIN C) 500 mg tablet,chewable Take 1 tablet/chew tab (500 mg total) by mouthdaily (Patient not taking: Reported on 11/18/2019) 30 tablet/chew tab 0 No current [facility]-ordered facility-administered medications on file. ALLERGIES is allergic to celecoxib; sulfa (sulfonamide antibiotics); amlodipine; lisinopril; trazodone; and scopolamine. PHYSICAL EXAM body mass index is 36.36 kg/m??. weight is 84.5 kg (186 lb 3.2 oz). Her tympanic temperature is 36.2 ??C (97.1 ??F). Her blood pressure is 149/79 and her pulse is 59. Her respiration is 16 and oxygen saturation is 97%. Physical Exam Vitals signs reviewed. Constitutional: General: She is not in acute distress. Appearance: Normal appearance. She is well-developed. She is obese. Comments: 12 lbs down from diet HENT: Head: Normocephalic. Right Ear: Tympanic membrane [...] equal, round, and reactive to light. Neck: Musculoskeletal: Normal range of motion. Thyroid: No thyromegaly. Cardiovascular: Rate and Rhythm: Normal rate and regular rhythm. Pulses: Normal pulses. Heart sounds: Normal heart sounds. No murmur. No gallop. Pulmonary: Effort: Pulmonary effort is normal. Breath sounds: Normal breath sounds. No wheezing, rhonchi or rales. Abdominal: General: Bowel sounds are normal. Palpations: Abdomen is soft. There is no mass. Tenderness: There is no abdominal tenderness. Hernia: No hernia is present. Musculoskeletal: General: Tenderness and deformity present. No swelling. Right lower leg: No edema. Left lower leg: No edema. Comments: Tenderness at the left hip with range of motion unchanged from her baseline from arthritis, the right hip pain is resolved after hip replacement surgery Lymphadenopathy: Cervical: No cervical adenopathy. Skin: General: Skin is warm and dry. Findings: No erythema, lesion or rash. Neurological: General: No focal deficit present. Mental Status: She is alert and oriented to person, place, and time. Mental status is at baseline. Cranial Nerves: No cranial nerve deficit. Sensory: Sensory deficit ( impairment unchanged in her left hand from previous surgery) present. Motor: Weakness ( and atrophy of the left hand unchanged from baseline from her previous surgery) present. No abnormal muscle tone. Coordination: Coordination abnormal (Parkinson's like tremor with rigidity right arm greater than left). Gait: Gait abnormal ( disturbed by limping with her painful left hip, no Parkinson's gait). Psychiatric: Mood and Affect: Mood normal. Behavior: [...] REVIEWED WITH Tess Benedict TODAY Lab on 08/08/2019 Component Date Value Ref Range Status ??? WBC 08/08/2019 7.4 3.8 - 9.9 K/cumm Final ??? Hgb 08/08/2019 13.2 11.9 - 15.5 g/dL Final ??? Hct 08/08/2019 44.3 35.6 - 45.5 % Final ??? Plt 08/08/2019 375 150 - 400 K/cumm Final ??? MPV 08/08/2019 9.6 9.1 - 12.3 fL Final ??? RBC 08/08/2019 4.77 3.90 - 5.20 M/cumm Final ??? MCV 08/08/2019 92.9 81.3 - 96.4 fL Final ??? MCH 08/08/2019 27.7 27.1 - 33.3 pg Final ??? MCHC 08/08/2019 29.8* 32.3 - 35.7 g/dL Final ??? RDW CV 08/08/2019 14.4 11.1 - 14.9 % Final ??? RDW SD 08/08/2019 49.7* 35.7 - 48.1 fL Final ??? NRBC abs 08/08/2019 0.00 0.00 - 0.01 K/cumm Final ??? Sodium 08/08/2019 136 135 - 145 mmol/L Final ??? Potassium, pl 08/08/2019 5.2* 3.3 - 4.9 mmol/L Final ??? Chloride 08/08/2019 97 97 - 110 mmol/L Final ??? CO2 08/08/2019 28 22 - 32 mmol/L Final ??? Anion gap 08/08/2019 11 2 - 15 mmol/L Final ??? BUN 08/08/2019 18 8 - 25 mg/dL Final ??? Creatinine 08/08/2019 0.62 0.60 - 1.10 mg/dL Final ??? Glucose 08/08/2019 79 70 - 199 mg/dL Final ??? Calcium 08/08/2019 9.6 8.5 - 10.3 mg/dL Final ??? Neutrophil abs 08/08/2019 5.1 1.7 - 6.5 K/cumm Final ??? Imm gran abs 08/08/2019 0.0 0.0 - 0.1 K/cumm Final ??? Lymphocyte abs 08/08/2019 1.1 0.8 - 3.3 K/cumm Final ??? Monocyte abs 08/08/2019 0.7 0.2 - 0.8 K/cumm Final ??? Eosinophil abs 08/08/2019 0.4 0.0 - 0.5 K/cumm Final ??? Basophil abs 08/08/2019 0.1 0.0 - 0.1 K/cumm Final ??? Neutrophil pct 08/08/2019 69.1 % Final ??? Imm gran pct 08/08/2019 0.7 % Final ??? Lymphocyte pct 08/08/2019 14.8 % Final ??? Monocyte pct 08/08/2019 9.6 % Final ??? Eosinophil pct 08/08/2019 5.0 % Final ??? Basophil pct 08/08/2019 0.8 % Final ??? GFR 08/08/2019 85 mL/min/1.73 m2 Final Admission on 07/10/2019, Discharged on 07/12/2019 Component Date Value Ref Range Status ??? Potassium, bld 07/10/2019 4.1 3.5 - 5.0 mmol/L Final ??? PT 07/10/2019 12.0 9.5 - 13.0 sec Final ??? INR 07/10/2019 1.1 0.9 - 1.2 Final ??? aPTT 07/10/2019 33 25 - 37 sec Final ??? Sodium 07/11/2019 130* 135 - 145 mmol/L Final ??? Potassium, pl 07/11/2019 4.2 3.3 - 4.9 mmol/L Final ??? Chloride 07/11/2019 93* 97 - 110 mmol/L Final ??? CO2 07/11/2019 24 22 - 32 mmol/L Final ??? Anion gap 07/11/2019 13 2 - 15 mmol/L Final ??? BUN 07/11/2019 16 8 - 25 mg/dL Final ??? Creatinine 07/11/2019 1.32* 0.60 - 1.10 mg/dL Final ??? Glucose 07/11/2019 279* 70 - 199 mg/dL Final ??? Calcium 07/11/2019 8.3* 8.5 - 10.3 mg/dL Final ??? WBC 07/11/2019 11.3* 3.8 - 9.9 K/cumm Final ??? Hgb 07/11/2019 12.3 11.9 - 15.5 g/dL Final ??? Hct 07/11/2019 39.1 35.6 - 45.5 % Final ??? Plt 07/11/2019 235 150 - 400 K/cumm Final ??? MPV 07/11/2019 8.9* 9.1 - 12.3 fL Final ??? RBC 07/11/2019 4.46 3.90 - 5.20 M/cumm Final ??? MCV 07/11/2019 87.7 81.3 - 96.4 fL Final ??? MCH 07/11/2019 27.6 27.1 - 33.3 pg Final ??? MCHC 07/11/2019 31.5* 32.3 - 35.7 g/dL Final ??? RDW CV 07/11/2019 13.5 11.1 - 14.9 % Final ??? RDW SD 07/11/2019 43.8 35.7 - 48.1 fL Final ??? NRBC abs 07/11/2019 0.00 0.00 - 0.01 K/cumm Final ??? GFR 07/11/2019 38 mL/min/1.73 m2 Final ??? Sodium 07/12/2019 134* 135 - 145 mmol/L Final ??? Potassium, pl 07/12/2019 4.3 3.3 - 4.9 mmol/L Final ??? Chloride 07/12/2019 100 97 - 110 mmol/L Final ??? CO2 07/12/2019 27 22 - 32 mmol/L Final ??? Anion gap 07/12/2019 8 2 - 15 mmol/L Final ??? BUN 07/12/2019 15 8 - 25 mg/dL Final ??? Creatinine 07/12/2019 0.68 0.60 - 1.10 mg/dL Final ??? Glucose 07/12/2019 120 70 - 199 mg/dL Final ??? Calcium 07/12/2019 8.7 8.5 - 10.3 mg/dL Final ??? WBC 07/12/2019 9.8 3.8 - 9.9 K/cumm Final ??? Hgb 07/12/2019 11.6* 11.9 - 15.5 g/dL Final ??? Hct 07/12/2019 36.7 35.6 - 45.5 % Final ??? Plt 07/12/2019 193 150 - 400 K/cumm Final ??? MPV 07/12/2019 9.0* 9.1 - 12.3 fL Final ??? RBC 07/12/2019 4.20 3.90 - 5.20 M/cumm Final ??? MCV 07/12/2019 87.4 81.3 - 96.4 fL Final ??? MCH 07/12/2019 27.6 27.1 - 33.3 pg Final ??? MCHC 07/12/2019 31.6* 32.3 - 35.7 g/dL Final ??? RDW CV 07/12/2019 13.5 11.1 - 14.9 % Final ??? RDW SD 07/12/2019 43.3 35.7 - 48.1 fL Final ??? NRBC abs 07/12/2019 0.00 0.00 - 0.01 K/cumm Final ??? GFR 07/12/2019 82 mL/min/1.73 m2 Final Lab on 07/01/2019 Component Date Value Ref Range Status ??? WBC 07/01/2019 6.6 3.8 - 9.9 K/cumm Final ??? Hgb 07/01/2019 13.7 11.9 - 15.5 g/dL Final ??? Hct 07/01/2019 43.2 35.6 - 45.5 % Final ??? Plt 07/01/2019 285 150 - 400 K/cumm Final ??? MPV 07/01/2019 9.4 9.1 - 12.3 fL Final ??? RBC 07/01/2019 4.97 3.90 - 5.20 M/cumm Final ??? MCV 07/01/2019 86.9 81.3 - 96.4 fL Final ??? MCH 07/01/2019 27.6 27.1 - 33.3 pg Final ??? MCHC 07/01/2019 31.7* 32.3 - 35.7 g/dL Final ??? RDW CV 07/01/2019 13.4 11.1 - 14.9 % Final ??? RDW SD 07/01/2019 42.5 35.7 - 48.1 fL Final ??? NRBC abs 07/01/2019 0.00 0.00 - 0.01 K/cumm Final ??? Sodium 07/01/2019 136 135 - 145 mmol/L Final ??? Potassium, pl 07/01/2019 4.2 3.3 - 4.9 mmol/L Final ??? Chloride 07/01/2019 99 97 - 110 mmol/L Final ??? CO2 07/01/2019 28 22 - 32 mmol/L Final ??? Anion gap 07/01/2019 9 2 - 15 mmol/L Final ??? BUN 07/01/2019 18 8 - 25 mg/dL Final ??? Creatinine 07/01/2019 0.60 0.60 - 1.10 mg/dL Final ??? Glucose 07/01/2019 87 70 - 199 mg/dL Final ??? Calcium 07/01/2019 9.1 8.5 - 10.3 mg/dL Final ??? Bilirubin, total 07/01/2019 0.2 0.1 - 1.2 mg/dL Final ??? Protein, pl 07/01/2019 6.9 6.5 - 8.5 g/dL Final ??? Albumin 07/01/2019 3.8 3.5 - 5.0 g/dL Final ??? Alk phos 07/01/2019 114 40 - 130 Units/L Final ??? ALT 07/01/2019 7 7 - 45 Units/L Final ??? AST 07/01/2019 13 10 - 45 Units/L Final ??? Hgb A1C 07/01/2019 5.1 4.0 - 5.6 % Final ??? Estimated Average Glucose 07/01/2019 100 mg/dL Final ??? Color, ur 07/01/2019 Yellow Yellow Final ??? Clarity, ur 07/01/2019 Clear Clear Final ??? Specific gravity, ur 07/01/2019 1.010 1.010 - 1.025 Final ??? pH, urine 07/01/2019 6.5 Final ??? Protein, ur ql 07/01/2019 Negative Negative Final ??? Glucose, ur ql 07/01/2019 Negative Negative Final ??? Ketones, ur 07/01/2019 Negative Negative Final ??? Bilirubin, ur 07/01/2019 Negative Negative Final ??? Blood, ur 07/01/2019 Negative Negative Final ??? Urobilinogen, ur 07/01/2019 0.2 mg/dL Final ??? Nitrite, ur 07/01/2019 Negative Negative Final ??? Leukocyte esterase, ur 07/01/2019 Negative Negative Final ??? UA reflex comment 07/01/2019 Reflex conditions for microscopic UA and culture not met. Final ??? PT 07/01/2019 12.1 9.5 - 13.0 sec Final ??? INR 07/01/2019 1.1 0.9 - 1.2 Final ??? aPTT 07/01/2019 31 25 - 37 sec Final ??? Neutrophil abs 07/01/2019 4.5 1.7 - 6.5 K/cumm Final ??? Imm gran abs 07/01/2019 0.0 0.0 - 0.1 K/cumm Final ??? Lymphocyte abs 07/01/2019 1.1 0.8 - 3.3 K/cumm Final ??? Monocyte abs 07/01/2019 0.5 0.2 - 0.8 K/cumm Final ??? Eosinophil abs 07/01/2019 0.4 0.0 - 0.5 K/cumm Final ??? Basophil abs 07/01/2019 0.1 0.0 - 0.1 K/cumm Final ??? Neutrophil pct 07/01/2019 67.3 % Final ??? Imm gran pct 07/01/2019 0.6 % Final ??? Lymphocyte pct 07/01/2019 17.1 % Final ??? Monocyte pct 07/01/2019 7.6 % Final ??? Eosinophil pct 07/01/2019 6.5 % Final ??? Basophil pct 07/01/2019 0.9 % Final ??? GFR 07/01/2019 85 mL/min/1.73 m2 Final Lab on 03/18/2019 Component Date Value Ref Range Status ??? Sodium 03/18/2019 138 135 - 145 mmol/L Final ??? Potassium, pl 03/18/2019 4.5 3.3 - 4.9 mmol/L Final ??? Chloride 03/18/2019 97 97 - 110 mmol/L Final ??? CO2 03/18/2019 29 22 - 32 mmol/L Final ??? Anion gap 03/18/2019 12 2 - 15 mmol/L Final ??? BUN 03/18/2019 16 8 - 25 mg/dL Final ??? Creatinine 03/18/2019 0.71 0.60 - 1.10 mg/dL Final ??? Glucose 03/18/2019 96 70 - 199 mg/dL Final ??? Calcium 03/18/2019 9.5 8.5 - 10.3 mg/dL Final ??? Bilirubin, total 03/18/2019 0.3 0.1 - 1.2 mg/dL Final ??? Protein, pl 03/18/2019 7.3 6.5 - 8.5 g/dL Final ??? Albumin 03/18/2019 4.1 3.5 - 5.0 g/dL Final ??? Alk phos 03/18/2019 98 40 - 130 Units/L Final ??? ALT 03/18/2019 45 7 - 45 Units/L Final ??? AST 03/18/2019 40 10 - 45 Units/L Final ? ? LDL Cholesterol Direct 03/18/2019 101 <=129 mg/dL Final ??? GFR 03/18/2019 80 mL/min/1.73 m2 Final Lab on 03/11/2019 Component Date Value Ref Range Status ??? Lipase 03/11/2019 61 10 - 99 Units/L Final ??? Amylase 03/11/2019 68 30 - 99 Units/L Final ??? Sodium 03/11/2019 130* 135 - 145 mmol/L Final ??? Potassium, pl 03/11/2019 4.4 3.3 - 4.9 mmol/L Final ??? Chloride 03/11/2019 91* 97 - 110 mmol/L Final ??? CO2 03/11/2019 29 22 - 32 mmol/L Final ??? Anion gap 03/11/2019 10 2 - 15 mmol/L Final ??? BUN 03/11/2019 14 8 - 25 mg/dL Final ??? Creatinine 03/11/2019 0.56* 0.60 - 1.10 mg/dL Final ??? Glucose 03/11/2019 104 70 - 199 mg/dL Final ??? Calcium 03/11/2019 9.2 8.5 - 10.3 mg/dL Final ??? Bilirubin, total 03/11/2019 0.3 0.1 - 1.2 mg/dL Final ??? Protein, pl 03/11/2019 6.6 6.5 - 8.5 g/dL Final ??? Albumin 03/11/2019 3.6 3.5 - 5.0 g/dL Final ??? Alk phos 03/11/2019 100 40 - 130 Units/L Final ??? ALT 03/11/2019 11 7 - 45 Units/L Final ??? AST 03/11/2019 18 10 - 45 Units/L Final ??? WBC 03/11/2019 9.1 3.8 - 9.9 K/cumm Final ??? Hgb 03/11/2019 13.4 11.9 - 15.5 g/dL Final ??? Hct 03/11/2019 41.3 35.6 - 45.5 % Final ??? Plt 03/11/2019 357 150 - 400 K/cumm Final ??? MPV 03/11/2019 9.7 9.1 - 12.3 fL Final ??? RBC 03/11/2019 4.76 3.90 - 5.20 M/cumm Final ??? MCV 03/11/2019 86.8 81.3 - 96.4 fL Final ??? MCH 03/11/2019 28.2 27.1 - 33.3 pg Final ??? MCHC 03/11/2019 32.4 32.3 - 35.7 g/dL Final ??? RDW CV 03/11/2019 13.6 11.1 - 14.9 % Final ??? RDW SD 03/11/2019 43.5 35.7 - 48.1 fL Final ??? NRBC abs 03/11/2019 0.00 0.00 - 0.01 K/cumm Final ??? Neutrophil abs 03/11/2019 6.4 1.7 - 6.5 K/cumm Final ??? Imm gran abs 03/11/2019 0.0 0.0 - 0.1 K/cumm Final ??? Lymphocyte abs 03/11/2019 1.3 0.8 - 3.3 K/cumm Final ??? Monocyte abs 03/11/2019 0.8 0.2 - 0.8 K/cumm Final ??? Eosinophil abs 03/11/2019 0.5 0.0 - 0.5 K/cumm Final ??? Basophil abs 03/11/2019 0.1 0.0 - 0.1 K/cumm Final ??? Neutrophil pct 03/11/2019 70.1 % Final ??? Imm gran pct 03/11/2019 0.6 % Final ??? Lymphocyte pct 03/11/2019 14.3 % Final ??? Monocyte pct 03/11/2019 8.4 % Final ??? Eosinophil pct 03/11/2019 5.7 % Final ??? Basophil pct 03/11/2019 0.9 % Final ??? GFR 03/11/2019 87 mL/min/1.73 m2 Final Patient Active Problem List [...] M54.5 ??? Iron deficiency anemia D50.9 ??? 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 Constipation due to opioid therapy K59.03, T40.2X5A Pepper Morgan M.D. documented in this encounter Plan of Treatment Not on file documented as of this encounter Results * (ABNORMAL) Comprehensive metabolic panel (05/12/2020 9:08 AM BUSINESS SYSTEMS ADVISOR) Sodium 136 135 - 145 mmol/L [facility] Potassium, pl 4.3 3.3 - 4.9 mmol/L [facility] Chloride 100 97 - 110 mmol/L [facility] CO2 30 22 - 32 mmol/L [facility] Anion gap 6 2 - 15 mmol/L [facility] BUN 11 8 - 25 mg/dL [facility] Creatinine 0.65 0.60 - 1.10 mg/dL [facility] Glucose 77 70 - 199 mg/dL [facility] Comment: [...] - 1.2 mg/dL [facility] Protein, pl 6.6 6.5 - 8.5 g/dL [facility] Albumin 3.8 3.5 - 5.0 g/dL [facility] Alk phos 111 40 - 130 Units/L [facility] ALT 6(L) 7 - 45 Units/L [facility] AST 16 10 - 45 Units/L [facility] Blood specimen (specimen) 05/12/2020 9:08 AM BUSINESS SYSTEMS ADVISOR 05/12/2020 2:10 PM BUSINESS SYSTEMS ADVISOR Pepper Morgan MD LAB BLOOD ORDERABLES Final Result Performing Organization Address [facility] Co de Phone Number CHIDI VAUGHAN [address] Department [place] [place] [address] * Cholesterol, LDL, direct (05/12/2020 9:08 AM BUSINESS SYSTEMS ADVISOR) LDL Cholesterol, Direct 121 <=129 mg/dL CHIDI VAUGHAN Comment: Interpretive Data [...] Data was last revised on 2018. Blood specimen (specimen) 05/12/2020 9:08 AM BUSINESS SYSTEMS ADVISOR 05/12/2020 2:10 PM BUSINESS SYSTEMS ADVISOR Pepper Morgan MD LAB BLOOD ORDERABLES Final Result Performing Organization Address [facility] Co de Phone Number CHIDI VAUGHAN [id number] Department [employer] [place], [place] [id number] documented in this encounter Visit Diagnoses Diagnosis Spinal stenosis of lumbar region with neurogenic claudication- Primary Cervical radiculopathy Brachial neuritis or radiculitis nos Benign hypertension Essential hypertension, benign retirement (current) use of non-steroidal anti-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s (nsaid) Restless legs syndrome Restless legs syndrome (RLS) Constipation due to opioid therapy Hereditary essential tremor Essential and other specified forms of tremor Parkinson's disease (tremor, stiffness, slow motion, unstable posture) (HCC) Paralysis agitans Iron deficiency anemia Unspecified iron deficiency anemia History of melanoma Personal history of malignant melanoma of skin S/P gastroplasty Other postprocedural status documented in this encounter Discontinued Medications Medication Sig Discontinue Reason Start Date End Da te DULoxetine DR (CYMBALTA) 20 mg capsuleIndications:Spinal stenosis of lumbar region with neurogenic claudication,Cervical radiculopathy Take 2 capsules (40 mg total) by mouth daily Reorder 09/25/2019 11/18/2019 felodipine (PLENDIL) 5 mg 24 hr tabletIndications:Benign hypertension Take 1 tablet (5 mg total) by mouth daily Reorder 05/14/2019 11/18/2019 meloxicam (MOBIC) 7.5 mg tabletIndications:Spinal stenosis of lumbar region with neurogenic claudication,Cervical radiculopathy Take 1 tablet (7.5 mg total) by mouth daily With the largest meal Reorder 09/25/2019 11/18/[address] (PROTONIX) 20 mg EC tabletIndications: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) Take 1 tablet (20 mg total) by mouth daily With the largest meal Reorder 09/25/2019 11/18/2019 pramipexole (MIRAPEX) 0.125 mg tabletIndications:Restles s legs syndrome Take 1-2 tablets by mouth every day Reorder 09/25/2019 11/18/2019 spironolactone (Aldactone) 25 mg tabletIndications:Benign hypertension Take 1 tablet (25 mg total) by mouth daily Reorder 09/25/2019 11/18/2019 traMADoL (ULTRAM) 50 mg tabletIndications:Spinal stenosis of lumbar region with neurogenic claudication,Cervical radiculopathy Take 1 tablet (50 mg total) by mouth 2 (two) times a day as needed for pain Reorder 09/25/2019 11/18/2019 senna-docusate (PERICOLACE) 8.6-50 mgIndications:constipatio n Take 1 tablet by mouth nightly Reorder 09/25/2019 11/18/2019 propranolol (INDERAL) 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:Benign hypertension,Hereditary essential tremor Take 1 tablet (20 mg total) by mouth 2 (two) times a day Reorder 05/14/2019 11/18/2019 pramipexole (MIRAPEX) 0.125 mg tabletIndications:Restles s legs syndrome,Parkinson's disease (tremor, stiffness, slow motion, unstable posture) (HCC) Take 1-2 tablets by mouth every day 11/18/2019 11/18/2019 documented as of this encounter Historical Medications * This list may reflect changes made after this encounter. biotin 10,000 mcg capsule Take by mouth 10/25/2021 added in this encounter Care Teams Powder Line Repairer Relationship Specialty Start Date End Date Pepper Morgan MD PCP - General 09/16/16 Hank Garibay MD [address] [facility] [address] [place] [address] Surgeon Orthopedic Surgery 03/27/17 Jacky Murry MD [address] [facility] [address] [place] [address] Ophthalmology 03/27/17 Puma Mckenzie MD [address] [facility] [address] [place] [address] Surgeon Orthopedic Surgery 07/11/19 documented as of this encounter
--- OUTSIDE RECORDS SUMMARY | 2024-06-18 19:01 | XMS_ITS | Encounter Summary ---
Author Organization [facility] Address [address] [facility] [address] [place] [address] Care Team Providers Care Reports Analysis Manager Name Role Phone Pepper Morgan MD Primary Care Provider + [phone] Hank Garibay MD Unavailable [phone] Jacky Murry MD Unavailable [phone] Puma Mckenzie MD Unavailable [phone] Reason for Visit * Reason Onset Date Comments need new pres sent in 06/01/2020 Encounter Details Date Type Department Care Team (Late st Contact Info) Description 06/01/2020 Telephone [facility] [address] [place] [address] Pepper Morgan MD [address] [place] [address] need new pres sent in Social History Tobacco Use Types Packs/Day [...] file Legal 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 Gender Identity Not on file Sexual Orientation Not on file Occupation Industry Job Start Date Job End Date retired Not on file Not on file Not on file documented as of this encounter Ordered Prescriptions Prescription Sig Dispense Quantity Refills Last Filled Start Date End Date carbidopa (LODOSYN) 25 mg tabletIndications: Parkinsonism Take 1 tablet (25 mg total) by mouth 3 (three) times a day 12 tablet 06/02/2020 0 carbidopa-levodopa (SINEMET) 25-100 mg per tabletIndications: Parkinsonism Take 1 tablet by mouth 2 (two) times a day 60 tablet 2 06/02/[address] (CYMBALTA) 20 mg capsuleIndications :Anxiety with Depression Take 1 capsule (20 mg total) by mouth daily 90 capsule 1 06/01/2020 1 documented in this encounter Miscellaneous Notes * Telephone Encounter - Milana Fuentes RN - 06/02/2020 1:00 PM CST Called and iformed pt of the new medication for per parkinsons Pt verbalized understanding and will call us back with any questions or problems STANT CONSTRUCTION SUPERINTENDENT * Telephone Encounter - Milana Fuentes RN - 06/02/2020 9:41 AM CST Orders Signed This Visit (4) carbidopa (LODOSYN) 25 mg tablet ??Take 1 tablet (25 mg total) by mouth 3 (three) times a day, Starting Mon06/02/2020, Normal carbidopa-levodopa (SINEMET) 25-100 mg per tablet ??Take 1 tablet by mouth 2 (two) times a day, Starting Mon06/02/2020, No Print DULoxetine DR (CYMBALTA) 20 mg capsule ??Take 1 capsule (20 mg total) by mouth daily, Starting Mon06/01/2020, Normal COVID-19 Coronavirus RNA Nasopharyngeal ??Future, Expected: 06/01/2020, Expires: 06/01/2021, Lab Collect, Specimen Types - Nasopharyngeal;,Resulting Agency - [facility], New collection We will call the pt and let her know about the change in the medication STANT CONSTRUCTION SUPERINTENDENT * Telephone Encounter - Pepper Morgan MD - 06/01/2020 5:17 PM ASSISTANT CONSTRUCTION SUPERINTENDENT To tolerate Sinemet try Extra levodopa = LODOSYN 25 mg up to t.i.d. with each dose of Sinemet # 10,if these were continue the combination therapy. If the nausea persists will have to find a different route of treatment. Keep follow-up as scheduled tomorrow for her respiratory infection STANT CONSTRUCTION SUPERINTENDENT * Telephone Encounter - Milana Fuentes RN - 06/01/2020 3:02 PM CST Pt called back and informed pt that we would change the doxycycline to daily Informed pt that we would let dr morgan know about the levodopa medication causing nausea Pt requesting to be seen for the symptoms of head and sinus congestions, cough, ear pain Pt states that she has had the symptoms since Monday Pt informed that she could be fast tracked and see tomorrow at 10 am Pt informed of the numbers to call Pt insurance not changed Pt will continue to use the otc medication as before mucinex Tylenol Saline sinus rinses DULoxetine DR (CYMBALTA) 20 mg capsule ??Take 1 capsule (20 mg total) by mouth daily, Starting 06/01/2020, Normal COVID-19 Coronavirus RNA Nasopharyngeal ??Future, Expected: 06/01/2020, Expires: 06/01/2021, Lab Collect, Specimen Types - Nasopharyngeal;,Resulting [place] - [facility], New collection TOKMS:pt can not tolerate the levodopa it makes her nauseated to matter how she takes it She just wanted to let you know to see if there might be some other medication she could try Please advise Thank you STANT CONSTRUCTION SUPERINTENDENT * Telephone Encounter - Milana Fuentes RN - 06/01/2020 12:51 PM ASSISTANT CONSTRUCTION SUPERINTENDENT Left a message for the pt to call us back STANT CONSTRUCTION SUPERINTENDENT * Telephone Encounter - Viviana Webster - 06/01/2020 9:14 AM CST . Pt had a pres for Duloxetine called in to in [place] and she has now switched to taking only one a day and its still being called in as 2 a day. Can we call and get this corrected and they are wanting a new pres sent to pharmacy. Also carbidopa levodopa was called in for pt as a new pres and she has had to d/c it because it made her sick to stomach. Said she had tried it with and without food and neither worked. Wanted to letyou know. Also she has now developed a bad cold that started with an earache on Monday. Ear is better but nowblows nose constantly and has been using sinus wash and it is thick mucous. Not coughing real bad or anything. Has been taking mucinex. No fever and no other sxs really.Wanted to know if she should be tested for Covid possibly? Requests a nurse call. STANT CONSTRUCTION SUPERINTENDENT documented in this encounter Plan of Treatment Not on file documented as of this encounter Visit Diagnoses Diagnosis Sinus congestion- Primary Other diseases of nasal cavity and sinuses Spinal stenosis of lumbar region with neurogenic claudication Cervical radiculopathy Brachial neuritis or radiculitis nos Parkinson's disease (tremor, stiffness, slow motion, unstable posture) (HCC) Paralysis agitans documented in this encounter Discontinued Medications Medication Sig Discontinue Reason Start Date End Da te carbidopa-levodopa (SINEMET) 25-100 mg per tabletIndications:Beatriz onism Take 1 tablet by mouth 2 (two) times a day Allergic response 05/26/2020 06/01/[address] (CYMBALTA) 20 mg capsuleIndications:Spinal stenosis of lumbar region with neurogenic claudication,Cervical radiculopathy Take 2 capsules (40 mg total) by mouth daily 05/26/2020 06/01/2020 documented as of this encounter Additional Health Concerns Infection Onset Date Last Indicated Resolved Time COVID: Suspected 06/01/2020 06/01/2020 06/15/2020 3:07 AM ASSISTANT CONSTRUCTION SUPERINTENDENT documented as of this encounter Care Teams Reports Analysis Manager Relationship Specialty Start Date End Date Pepper Morgan MD PCP - General 09/16/16 Hank Garibay MD [address] [facility] [address] [place] [address] Surgeon Orthopedic Surgery 03/27/17 Jacky Murry MD [address] [facility] [address] [place] [address] Ophthalmology 03/27/17 Puma Mckenzie MD [address] [facility] [address] [place] [address] Surgeon Orthopedic Surgery 07/11/19 documented as of this encounter
--- OUTSIDE RECORDS SUMMARY | 2024-06-18 19:01 | XMS_ITS | Encounter Summary ---
Author Organization [facility] Medical [facility] Address [address] [address] Care Team Providers Care Oil Furnace Installer Name Role Phone Pepper Morgan MD Primary Care Provider + [phone] Hank Garibay MD Unavailable [phone] Jacky Murry MD Unavailable [phone] Puma Mckenzie MD Unavailable [phone] Reason for Visit * Reason Comments Annual Exam Encounter Details Date Type Department Care Team (Late st Contact Info) Description 05/26/2020 10:00 AM PRODUCTION OPERATIONS INSPECTOR Office Visit [facility] [address] [place] [address] Pepper Morgan MD [address] [place] [address] Annual physical exam (Primary Dx); Parkinson's disease (tremor, stiffness, slow motion, unstable posture) (CMS/HCC); Spinal stenosis of lumbar region with neurogenic claudication; Cervical radiculopathy; Benign hypertension; skilled nursing (current) use of non-steroidal anti-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 s (nsaid); Restless legs syndrome; Hereditary essential tremor; Constipation due to opioid therapy; Medication monitoring encounter Social History Tobacco Use [...] file Legal Sex Female 4:33 AM PRODUCTION OPERATIONS INSPECTOR Gender Identity Not on file Sexual Orientation Not on file Occupation Industry Job Start Date Job End Date retired Not on file Not on file Not on file documented as of this encounter Last Filed Vital Signs Vital Sign Reading Time Taken Comments Blood Pressure 140/86 05/26/2020 10:06 AM PRODUCTION OPERATIONS INSPECTOR Pulse 62 05/26/2020 10:06 AM PRODUCTION OPERATIONS INSPECTOR Temperature 35.7 ??C (96.2 ??F) 05/26/2020 10:[address] Respiratory Rate 12 05/26/2020 10:06 AM PRODUCTION OPERATIONS INSPECTOR Oxygen Saturation 96% 05/26/2020 10:06 AM PRODUCTION OPERATIONS INSPECTOR Inhaled Oxygen Concentration - - Weight 78.7 kg (173 lb 9.6 oz) 05/26/2020 10:06 AM PRODUCTION OPERATIONS INSPECTOR Height 152.4 cm (5') 05/26/2020 10:06 AM PRODUCTION OPERATIONS INSPECTOR Body Mass Index 33.9 05/26/2020 10:06 AM PRODUCTION OPERATIONS INSPECTOR documented in this encounter Patient Instructions * Patient Instructions* Pepper Morgan MD - 05/26/2020 10:00 AM PRODUCTION OPERATIONS INSPECTOR ORDERS FOR AMS STAFF TO ARRANGE 1. Labs for six-month follow-up visit = CBC, chemistry profile DX = benign hypertension, medicationmonitor ORDERS FOR Tess Benedict TO ARRANGE 1. The immunization recommendations SHINGRIX 2 shot series available at your grocery store [employer] or [employer] or your pharmacy without a prescription, try to get the sometime over the next year. This is covered by insurance. Get the coronavirus immunization when it is available 2. Medication changes Begin Sinemet 25/100 upon awakening and before lunch for the Parkinson's, keep the pramipexole 0.125 which can probably did be delayed until about 6:00 p.m. and then at bedtime for the restless leg, were going to delay the medicine so you have more wakefulness in the evening hours as the medicationpramipexole make you sleepy Patient Care Team: Pepper Morgan MD as PCP - General [facility], Hank Mccauley MD as Surgeon (Orthopedic Surgery) Jacky Murry MD (Ophthalmology) Puma Mckenzie MD as Surgeon (Orthopedic Surgery) Return in about 4 weeks (around 06/23/2020) for Recheck Parkinson's medication changes. No orders of the defined types were placed in this encounter. A brief review of all your problems, medications, and orders from today ICD-9-CM ICD-10-CM 1. Annual physical exam V70.0 Z00.00 2. Parkinson's disease (tremor, stiffness, slow motion, unstable posture) (CMS/HCC) 332.0 G20 carbidopa-levodopa (SINEMET) 25-100 mg per tablet pramipexole (MIRAPEX) 0.125 mg tablet 3. Spinal stenosis of lumbar region with neurogenic claudication 724.[address] (CYMBALTA) 20 mg capsule meloxicam (MOBIC) 7.5 mg tablet traMADoL (ULTRAM) 50 mg tablet 4. Cervical radiculopathy 723.[address] (CYMBALTA) 20 mg capsule meloxicam (MOBIC) 7.5 mg tablet traMADoL (ULTRAM) 50 mg tablet 5. Benign hypertension 401.1 I10 felodipine (PLENDIL) 5 mg 24 hr tablet propranoloL (INDERAL) 20 mg tablet spironolactone (Aldactone) 25 mg tablet 6. 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) use of non-steroidal anti-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s (nsaid) V58.[address] (PROTONIX) 20 mg EC tablet 7. Restless legs syndrome 333.94 G25.81 pramipexole (MIRAPEX) 0.125 mg tablet 8. Hereditary essential tremor 333.1 G25.0 propranoloL (INDERAL) 20 mg tablet 9. Constipation due to opioid therapy 564.09 K59.03 senna-docusate (PERICOLACE) 8.6-50 mg E935.2 T40.2X5A polyethylene glycol (MIRALAX) 17 gram packet For your records I have provided this [...] 04/26/2016 ??? Tdap 05/18/2011 Primary Pharmacy/DME suppliers: [id number] - [place] - [address] [address] [place] [address] PLEASE BRING IN ALL PILL BOTTLES TO EVERY OFFICE VISIT, THIS IS ESSENTIAL FOR ACCURATE REFILLS AND MAINTAINING AN ACCURATE MEDICATION LIST. PLEASE SIGN UP FOR MyCHART so that you may have access to your labs and chart documentation IF YOU HAVE TROUBLE WITH THIS PROCESS CALL [phone] Annual Exam finds the need for continued diet and exercise to maintain this level of health. Please review the comprehensive yearly physical examination worksheet created for you today. laboratory results, immunization recommendations, and any tests require for preventive health are documented on this information sheet. CONTINUE EXERCISE STRETCHING AND STRENGTHENING ESPECIALLY FOR THE BACK Try Pilates with your exercise group Pilates =The complete guide to Chencho Hinds techniques of physical conditioning by Saulo Franklin CORONAVIRUS PANDEMIC RECOMMENDATIONS DURING THE CORONAVIRUS OUTBREAK WITH THE COVID-19 ILLNESS Maintain PHYSICAL distancing 6 ft between you and another person that is not in your household. Wear a mask when you are out in public. RELIABLE EDUCATIONAL INFORMATION: Information is available daily on the internet at CDC.GOV Listen to a virology pod-cast called ???this week and virology?? = TWIV. Start at episode # 640 After that just follow the shows that are done by Dr. Slick Pa, he is the medical doctor thatis following the Pandemic with the sign tests and explaining it to assess patients Doctors on this Podcast radio show or YouTube video discuss the science of the frazier virus.CORONAVIRUS PANDEMIC UCTION OPERATIONS INSPECTOR UCTION OPERATIONS INSPECTOR UCTION OPERATIONS INSPECTOR UCTION OPERATIONS INSPECTOR UCTION OPERATIONS INSPECTOR UCTION OPERATIONS INSPECTOR UCTION OPERATIONS INSPECTOR UCTION OPERATIONS INSPECTOR UCTION OPERATIONS INSPECTOR documented in this encounter Ordered Prescriptions Prescription Sig Dispense Quantity Refills Last Filled Start Date End Date polyethylene glycol (MIRALAX) 17 gram packetIndications:c onstipation Take 1 packet (17 g total) by mouth daily 05/26/2020 2 senna-docusate (PERICOLACE) 8.6-50 mgIndications:const ipation Take 1 tablet by mouth nightly 90 tablet 1 05/26/2020 1 traMADoL (ULTRAM) 50 mg tabletIndications:S jenni stenosis of lumbar region with neurogenic claudication,Cervic al radiculopathy Take 0.5-1 tablets (25-50 mg total) by mouth 2 (two) times a day as needed for pain With Tylenol ER 650 at each dosing 60 tablet 5 05/26/2020 1 spironolactone (Aldactone) 25 mg tabletIndications:B enign hypertension Take 1 tablet (25 mg total) by mouth daily 90 tablet 1 05/26/2020 1 propranoloL (INDERAL) 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:B enign hypertension,Heredi tary essential tremor Take 1 tablet (20 mg total) by mouth 2 (two) times a day 180 tablet 1 05/26/2020 1 pramipexole (MIRAPEX) 0.125 mg tabletIndications:I diopathic Parkinsonism,Restle ss Legs Syndrome Take 1 tablet (0.125 mg total) by mouth 2 (two) times a day 180 tablet 1 05/26/[address] (PROTONIX) 20 mg EC tabletIndications:L livier term (current) use of non-steroidal anti-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s (nsaid) Take 1 tablet (20 mg total) by mouth daily With the largest meal 90 tablet 1 05/26/2020 1 meloxicam (MOBIC) 7.5 mg tabletIndications:S jenni stenosis of lumbar region with neurogenic claudication,Cervic al radiculopathy Take 1 tablet (7.5 mg total) by mouth daily With the largest meal 90 tablet 1 05/26/2020 1 felodipine (PLENDIL) 5 mg 24 hr tabletIndications:B enign hypertension Take 1 tablet (5 mg total) by mouth daily 90 tablet 1 05/26/[address] (CYMBALTA) 20 mg capsuleIndications: Spinal stenosis of lumbar region with neurogenic claudication,Cervic al radiculopathy Take 2 capsules (40 mg total) by mouth daily 180 capsule 1 05/26/2020 0 carbidopa-levodopa (SINEMET) 25-100 mg per tabletIndications:P arkinsonism Take 1 tablet by mouth 2 (two) times a day 60 tablet 2 05/26/2020 0 documented in this encounter Progress Notes * Pepper Morgan MD - 05/26/2020 10:00 AM CST ASSESSMENT AND PLAN Patient Instructions ORDERS FOR AMS STAFF TO ARRANGE 1. Labs for six-month follow-up visit = CBC, chemistry profile DX = benign hypertension, medicationmonitor ORDERS FOR Tess Benedict TO ARRANGE 1. The immunization recommendations SHINGRIX 2 shot series available at your grocery store [employer] or [employer] or your pharmacy without a prescription, try to get the sometime over the next year. This is covered by insurance. Get the coronavirus immunization when it is available 2. Medication changes Begin Sinemet 25/100 upon awakening and before lunch for the Parkinson's, keep the pramipexole 0.125 which can probably did be delayed until about 6:00 p.m. and then at bedtime for the restless leg, were going to delay the medicine so you have more wakefulness in the evening hours as the medicationpramipexole make you sleepy Patient Care Team: Pepper Morgan MD as PCP - General [facility], Hank Mccauley MD as Surgeon (Orthopedic Surgery) Jacky Murry MD (Ophthalmology) Puma Mckenzie MD as Surgeon (Orthopedic Surgery) Return in about 4 weeks (around 06/23/2020) for Recheck Parkinson's medication changes. No orders of the defined types were placed in this encounter. A brief review of all your problems, medications, and orders from today ICD-9-CM ICD-10-CM 1. Annual physical exam V70.0 Z00.00 2. Parkinson's disease (tremor, stiffness, slow motion, unstable posture) (CMS/HCC) 332.0 G20 carbidopa-levodopa (SINEMET) 25-100 mg per tablet pramipexole (MIRAPEX) 0.125 mg tablet 3. Spinal stenosis of lumbar region with neurogenic claudication 724.[address] (CYMBALTA) 20 mg capsule meloxicam (MOBIC) 7.5 mg tablet traMADoL (ULTRAM) 50 mg tablet 4. Cervical radiculopathy 723.[address] (CYMBALTA) 20 mg capsule meloxicam (MOBIC) 7.5 mg tablet traMADoL (ULTRAM) 50 mg tablet 5. Benign hypertension 401.1 I10 felodipine (PLENDIL) 5 mg 24 hr tablet propranoloL (INDERAL) 20 mg tablet spironolactone (Aldactone) 25 mg tablet 6. 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) use of non-steroidal anti-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s (nsaid) V58.[address] (PROTONIX) 20 mg EC tablet 7. Restless legs syndrome 333.94 G25.81 pramipexole (MIRAPEX) 0.125 mg tablet 8. Hereditary essential tremor 333.1 G25.0 propranoloL (INDERAL) 20 mg tablet 9. Constipation due to opioid therapy 564.09 K59.03 senna-docusate (PERICOLACE) 8.6-50 mg E935.2 T40.2X5A polyethylene glycol (MIRALAX) 17 gram packet For your records I have provided this [...] 04/26/2016 ??? Tdap 05/18/2011 [id number] [place] - [address] [place] [address] [place] [address] PLEASE BRING IN ALL PILL BOTTLES TO EVERY OFFICE VISIT, THIS IS ESSENTIAL FOR ACCURATE REFILLS AND MAINTAINING AN ACCURATE MEDICATION LIST. PLEASE SIGN UP FOR Publim[employer]T so that you may have access to your labs and chart documentation IF YOU HAVE TROUBLE WITH THIS PROCESS CALL [phone] Annual Exam finds the need for continued diet and exercise to maintain this level of health. Please review the comprehensive yearly physical examination worksheet created for you today. laboratory results, immunization recommendations, and any tests require for preventive health are documented on this information sheet. CONTINUE EXERCISE STRETCHING AND STRENGTHENING ESPECIALLY FOR THE BACK Try Pilates with your exercise group Pilates =The complete guide to Chencho Hinds techniques of physical conditioning by Saulo Franklin CORONAVIRUS PANDEMIC RECOMMENDATIONS DURING THE CORONAVIRUS OUTBREAK WITH THE COVID-19 ILLNESS Maintain PHYSICAL distancing 6 ft between you and another person that is not in your household. Wear a mask when you are out in public. RELIABLE EDUCATIONAL INFORMATION: Information is available daily on the internet at CDC.GOV Listen to a virology pod-cast called ???this week and virology?? = TWIV. Start at episode # 640 After that just follow the shows that are done by Dr. Slick Pa, he is the medical doctor thatis following the Pandemic with the sign tests and explaining it to assess patients Doctors on this Podcast radio show or YouTube video discuss the science of the frazier virus.CORONAVIRUS PANDEMIC CHIEF COMPLAINT Annual Exam HISTORY OF PRESENT [...] medication prescriptions ORDERS FROM LAST VISIT WITH ME 11/18/2019 1. Referral is open to Dr. 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 CBC iron profile = iron deficiency anemia, LDL,chemistry panel = benign hypertension medication monitoring, before annual physical 6 months ? ORDERS FOR Tess Benedict TO ARRANGE 1. Medication changes Keep pramipexole 0.125 take 1 tablet at 4 in the evening, It is optional to take 2 more tablets in any 24 hour period --you may dose again at bedtime, you may take 1 of these before and activity that requires a steadyhand for his many is 3 in a day ?? DETAILS REGARDING THIS VISIT: Tess reports feeling well maintaining a social group of 5 gal that are ???household?? added her senior facility exercising on a regular basis and has lost 20 lb with diet exercise interventions feeling great. Her problem is tremor from the Parkinson's 1. Annual physical exam Documented on the annual information sheet FURTHER NON ANNUAL PHYSICAL DETAILS REGARDING THIS VISIT: 2. Parkinson's disease (tremor, stiffness, slow motion, unstable posture) (CMS/HCC) Taking Mirapex starting at about 4:00 a.m. in the afternoon and again at bedtime really helps with the restless leg and does quite down the tremor however she gets too tired taking this in the morning time it seems to lead to sleep in the evening. Her she agrees to start trial of Sinemet it is 25/100 upon awakening and before her 1:00 a.m. in the afternoon meal and will meet back in a month to continue titrating Parkinson's med - carbidopa-levodopa (SINEMET) 25-100 mg per tablet; Take 1 tablet by mouth 2 (two) times a day Dispense: 60 tablet; Refill: 2 - pramipexole (MIRAPEX) 0.125 mg tablet; Take 1 tablet (0.125 mg total) by mouth 2 (two) times a day Dispense: 180 tablet; Refill: 1 3. Spinal stenosis of lumbar region with neurogenic , cervical radiculopathy Dramatic improvement in her pain condition with Mobic 7.5 Ultram at bedtime and Cymbalta. She is advised to try and cut the Ultram back to maybe just 25 mg at bed is a really does interfere with sleep efficiency. She is working on kyphoscoliosis with the daily exercise at her local community centerand she has less pain 5. Benign hypertension Three drug combination planned on draw Aldactone are working well with electrolytes remaining in range, refills without changes today. We decided to stay on the Inderal for tremor control as she was worse off the medicine. Will consider coming off the Inderal next visit we have Sinemet on board forher Parkinson's 6. skilled nursing (current) use of non-steroidal anti-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s (nsaid) Protonix is working great to relieve the abdominal pain caused by low doses of Mobic, will continue - pantoprazole DR (PROTONIX) 20 mg EC tablet; Take 1 tablet (20 mg total) by mouth daily With the largest meal Dispense: 90 tablet; Refill: 1 7. Restless legs syndrome Mirapex continues to work and will be continued - pramipexole (MIRAPEX) 0.125 mg tablet; Take 1 tablet (0.125 mg total) by mouth 2 (two) times a day Dispense: 180 tablet; Refill: 1 8. Hereditary essential tremor Not sure that her essential tremor will require medication or considering coming off this med next visit after treating Parkinson's - propranoloL (INDERAL) 20 mg tablet; Take 1 tablet (20 mg total) by mouth 2 (two) times a day Dispense: 180 tablet; Refill: 1 9. Constipation due to opioid therapy She is taking Colace advised to add in MiraLax 1 scoop daily - senna-docusate (PERICOLACE) 8.6-50 mg; Take 1 tablet by mouth nightly Dispense: 90 tablet; Refill: 1 PAST MEDICAL HISTORY Past [...] 03/1999 ? gout ??? Malignant melanoma (CMS/HCC) Malignant melanoma; Comments: APO 01/13/2014 - ??? Menopause ??? Obesity ??? Restless leg ??? Right carpal tunnel syndrome ??? Superficial basal cell carcinoma 2003 Cancer, basal Cell ??? Tobacco use 1-2ppd x 35yrs quit PAST SURGICAL HISTORY Past Surgical History: Procedure Laterality Date ??? BARIATRIC SURGERY 1984 gastroplasty ??? BREAST BIOPSY 1994 Breast biopsy ??? CHOLECYSTECTOMY 1992 Cholecystectomy ??? FLUORO GUIDED INJECTION HIP RIGHT Right [...] Occupational History ??? 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 Financial resource strain: Not on file ??? Food insecurity Worry: Not on file Inability: Not on file ??? Transportation needs Medical: Not on file Non-medical: Not on file Tobacco Use ??? Smoking status: Former Smoker Quit date: 1991 Years since quittin. ??? Smokeless tobacco: Never Used Substance and Sexual Activity ??? Alcohol use: Not Currently ??? Drug use: Never ??? Sexual activity: Defer Lifestyle ??? Physical activity Days per week: Not on file Minutes per session: Not on file ??? Stress: Not on file Relationships ??? Social connections Talks on phone: Not on file Gets together: Not on file Attends muslim service: Not on file Active member of club or organization: Not on file Attends meetings of clubs or organizations: Not on file Relationship status: Not on file ??? Intimate partner violence Fear of current or ex partner: Not on file Emotionally abused: Not on file Physically abused: Not on file Forced sexual activity: Not on file Other Topics Concern ??? Not on file Social History Narrative ??? Not on file THE REVIEW OF SYSTEMS Review of Systems MEDICATIONS CHANGED / CLEANED UP THIS VISIT Medications Discontinued During This Encounter Medication Reason ??? DULoxetine DR (CYMBALTA) 20 mg capsule Reorder ??? felodipine (PLENDIL) 5 mg 24 hr tablet Reorder ??? meloxicam (MOBIC) 7.5 mg tablet Reorder ??? pantoprazole DR (PROTONIX) 20 mg EC tablet Reorder ??? traMADoL (ULTRAM) 50 mg tablet Reorder ??? senna-docusate (PERICOLACE) 8.6-50 mg Reorder ??? propranoloL (INDERAL) 20 mg tablet Reorder ??? spironolactone (Aldactone) 25 mg tablet Reorder ??? pramipexole (MIRAPEX) 0.125 mg tablet Reorder MEDICATION LIST AT CONCLUSION OF THIS VISIT Current Outpatient Medications Ordered in [facility] Medication Sig Dispense Refill ??? biotin [...] (two) times a day 180 tablet 1 ??? propranoloL (INDERAL) 20 mg tablet Take 1 tablet (20 mg total) by mouth 2 (two) times a day 180tablet 1 ??? senna-docusate (PERICOLACE) 8.6-50 mg Take 1 tablet by mouth nightly 90 tablet 1 ??? spironolactone (Aldactone) 25 mg tablet Take 1 tablet (25 mg total) by mouth daily 90 tablet 1 ??? traMADoL (ULTRAM) 50 mg tablet Take 0.5-1 tablets (25-50 mg total) by mouth 2 (two) times a dayas needed for pain With Tylenol ER 650 at each dosing 60 tablet 5 ??? ascorbic acid (VITAMIN C) 500 mg tablet,chewable Take 1 tablet/chew tab (500 mg total) by mouthdaily (Patient not taking: Reported on 11/18/2019) 30 tablet/chew tab 0 ??? carbidopa-levodopa (SINEMET) 25-100 mg per tablet Take 1 tablet by mouth 2 (two) times a day 60tablet 2 ??? polyethylene glycol (MIRALAX) 17 gram packet Take 1 packet (17 g total) by mouth daily No current [facility]-ordered facility-administered medications on file. ALLERGIES is allergic to celecoxib; sulfa (sulfonamide antibiotics); amlodipine; lisinopril; trazodone; and scopolamine. PHYSICAL EXAM body mass index is 33.9 kg/m??. Vitals: 05/26/20 1006 BP: 140/86 BP Location: Left arm Patient Position: Sitting Pulse: 62 Resp: 12 Temp: (!) 35.7 ??C (96.2 ??F) TempSrc: Temporal SpO2: 96% Weight: 78.7 kg (173 lb 9.6 oz) Height: 152.4 cm (5') Physical Exam Comprehensive physical examination was completed today and [...] Date Due ??? Osteoporosis Screening-Bone Density Scan 1935 ??? Zoster Vaccines 11/24/1987 ??? DTaP/Tdap/Td Vaccine (2 - Td) 05/18/2021 ??? Fall Risk Assessment 05/26/2021 ??? Depression Screening-PHQ 05/26/2021 ??? Regular Well Visit/Exam 05/26/2021 ? ? Pneumococcal (PCV13 & PPSV23) 65+ yrs High Risk Completed ? ? Pneumococcal (PCV13 & PPSV23) 65+ yrs Completed ??? Influenza Vaccine Completed WHICH IS INCOMPLETE UNTIL A SOLUTION CAN BE FOUND FOR THE 24 HR TURN AROUND UPDATE PROBLEM IN [facility]. That HEALTH MAINTENANCE REVIEW include the following [...] HEALTH MAINTENANCE TESTING DOCUMENTED WHEN POSSIBLE IN [employer] FLOW SHEETS INCLUDING:PHQ depression screening, HRA screening, cognitive evaluation with 3 ITEM RECALL( with clock draw and BARD ADL/IADL screening when appropriate), FALL RISK ASSESSMENT. Appropriate documented not available on [employer] are on the scanned preventive health document created today. SPORTS ANALYST REVIEW COMPLETED WITH administrative tasks including DME provider recommendations when Appropriate. THE PHARMACY SECTION CONTAIN primary secondary and mail order pharmacy choices selected by Tess Morgan M.D. THE FOLLOWING CLERICAL INFORMATION DOES NOT DUE TO BE SENT IN A PRINTED DOCUMENT LABS REVIEWED WITH Tess Benedict THIS VISIT Lab on 05/12/2020 Component Date Value Ref [...] ??? GFR 05/12/2020 83 mL/min/1.73 m2 Final Lab on 08/08/2019 Component Date Value Ref [...] ??? GFR 07/01/2019 85 mL/min/1.73 m2 Final Patient Active Problem [...] M54.5 ??? Iron deficiency anemia D50.9 ??? skilled nursing (current) use of non-steroidal anti-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s (nsaid) Z79.1 ??? Constipation due to opioid therapy K59.03, T40.2X5A UCTION OPERATIONS INSPECTOR documented in this encounter Miscellaneous Notes * Addendum Note - Randy Ramos MA - 05/26/2020 10:00 AM CSTAddended by: RANDY RAMOS on: 05/26/2020 11:19 AM Modules accepted: Orders UCTION OPERATIONS INSPECTOR documented in this encounter Plan of Treatment Not on file documented as of this encounter Results * (ABNORMAL) Comprehensive metabolic panel (2020 9:04 [...] Morgan MD LAB BLOOD ORDERABLES Final Result [facility] [id number] Department [place] [address] * (ABNORMAL) CBC with auto differential (2020 9:04 AM CDT) WBC 6.2 3.8 - 9.9 K/cumm [facility] Hgb 14.1 11.9 - 15.5 g/dL [facility] Hct 45.7(H) 35.6 - 45.5 % [facility] Plt 310 150 - 400 K/cumm [facility] MPV 9.3 9.1 - 12.3 fL [facility] RBC 5.10 3.90 - 5.20 M/cumm [facility] MCV 89.6 81.3 - 96.4 fL [facility] MCH 27.6 27.1 - 33.3 pg [facility] MCHC 30.9(L) 32.3 - 35.7 g/dL [facility] RDW CV 13.4 11.1 - 14.9 % [facility] RDW SD 44.2 35.7 - 48.1 fL [facility] NRBC abs 0.00 0.00 - 0.01 K/cumm [facility] Blood specimen (specimen) 2020 9:04 AM CDT 2020 12:43 PM CDT us Pepper Morgan MD LAB BLOOD ORDERABLES Final Result [facility] [id number] Department [place] [address] documented in this encounter Visit Diagnoses Diagnosis Annual physical exam- Primary Routine general medical examination at a health care facility Parkinson's disease (tremor, stiffness, slow motion, unstable posture) (HCC) Paralysis agitans Spinal stenosis of lumbar region with neurogenic claudication Cervical radiculopathy Brachial neuritis or radiculitis nos Benign hypertension Essential hypertension, benign skilled nursing (current) use of non-steroidal anti-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s (nsaid) Restless legs syndrome Restless legs syndrome (RLS) Hereditary essential tremor Essential and other specified forms of tremor Constipation due to opioid therapy Medication monitoring encounter Encounter for therapeutic drug monitoring documented in this encounter Discontinued Medications Medication Sig Discontinue Reason Start Date End Da te DULoxetine DR (CYMBALTA) 20 mg capsuleIndications:Spinal stenosis of lumbar region with neurogenic claudication,Cervical radiculopathy Take 2 capsules (40 mg total) by mouth daily Reorder 11/18/2019 05/26/2020 felodipine (PLENDIL) 5 mg 24 hr tabletIndications:Benign hypertension Take 1 tablet (5 mg total) by mouth daily Reorder 11/18/2019 05/26/2020 meloxicam (MOBIC) 7.5 mg tabletIndications:Spinal stenosis of lumbar region with neurogenic claudication,Cervical radiculopathy Take 1 tablet (7.5 mg total) by mouth daily With the largest meal Reorder 11/18/2019 05/26/[address] (PROTONIX) 20 mg EC tabletIndications: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) use of non-steroidal anti-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s (nsaid) Take 1 tablet (20 mg total) by mouth daily With the largest meal Reorder 11/18/2019 05/26/2020 traMADoL (ULTRAM) 50 mg tabletIndications:Spinal stenosis of lumbar region with neurogenic claudication,Cervical radiculopathy Take 1 tablet (50 mg total) by mouth 2 (two) times a day as needed for pain Reorder 11/18/2019 05/26/2020 senna-docusate (PERICOLACE) 8.6-50 mgIndications:constipatio n Take 1 tablet by mouth nightly Reorder 11/18/2019 05/26/2020 propranoloL (INDERAL) 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:Benign hypertension,Hereditary essential tremor Take 1 tablet (20 mg total) by mouth 2 (two) times a day Reorder 11/18/2019 05/26/2020 spironolactone (Aldactone) 25 mg tabletIndications:Benign hypertension Take 1 tablet (25 mg total) by mouth daily Reorder 05/08/2020 05/26/2020 pramipexole (MIRAPEX) 0.125 mg tabletIndications:Idiopat hic Parkinsonism,Restless Legs Syndrome Take 1 tablet (0.125 mg total) by mouth 2 (two) times a day Reorder 05/08/2020 05/26/2020 documented as of this encounter Care Teams Oil Furnace Installer Relationship Specialty Start Date End Date Pepper Morgan MD PCP - General 09/16/16 Hank Garibay MD [address] [facility] [address] [place] [address] Surgeon Orthopedic Surgery 03/27/17 Jacky Murry MD [address] [facility] [address] [place] [address] Ophthalmology 03/27/17 Puma Mckenzie MD [address] [facility] [place] [address] Surgeon Orthopedic Surgery 07/11/19 documented as of this encounter
--- OUTSIDE RECORDS SUMMARY | 2024-06-18 19:01 | XMS_ITS | Encounter Summary ---
Author Organization [facility] Address [address] [facility] [address] [place] [address] Care Team Providers Care Labor Trainer Name Role Phone Pepper Morgan MD Primary Care Provider + [phone] Hank Garibay MD Unavailable [phone] Jacky Murry MD Unavailable [phone] Puma Mckenzie MD Unavailable [phone] Encounter Details Date Type Department Care Team (Late st Contact Info) Description 08/08/2019 Telephone [place] [facility] [address] [place] [phone] Jacqueline Fuller, BORDER GUARD [address] [place] [address] Social History Tobacco Use Types Packs/Day Years [...] on file Legal Sex Female 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 João Fuller BORDER GUARD comments and recommendations re: lumbar xray report. Verbalized understanding. States, Does not want to consider PM consult. Will live with the discomfort. Just glad no fractures. To ANV BORDER GUARD: Update CH BOILER PACKER * Telephone Encounter - Jacqueline Fuller NP - 08/08/2019 2:35 PM BLEACH BOILER PACKER Please inform patient that her lumbar spine xray shows severe degenerative joint disease. She can continue tramadol as prescribed for pain. She needs to continue with physical therapy. If unrelieved she will need follow up or referral to pain management CH BOILER PACKER documented in this encounter Plan of Treatment Not on file documented as of this encounter Visit Diagnoses Not on filedocumented in this encounter Care Teams Labor Trainer Relationship Specialty Start Date End Date Pepper Morgan MD PCP - General 09/16/16 Hank Garibay MD [address] [facility] [address] [place] [address] Surgeon Orthopedic Surgery 03/27/17 Jacky Murry MD [address] [facility] [address] [place] [address] Ophthalmology 03/27/17 Puma Mckenzie MD [address] [facility] [address] [place] [address] Surgeon Orthopedic Surgery 07/11/19 documented as of this encounter
--- OUTSIDE RECORDS SUMMARY | 2024-06-18 19:01 | XMS_ITS | Encounter Summary ---
Author Organization [facility] Address [address] [facility] [address] [place] [address] Care Team Providers Care Structural Analysis Engineer Name Role Phone Zachary Pelaez MD Primary Care Provider + [phone] Hank Garibay MD Unavailable [phone] Jacky Murry MD Unavailable [phone] Puma Mckenzie MD Unavailable [phone] Encounter Details Date Type Department Care Team (Late st Contact Info) Description 08/08/2019 Telephone [facility] [facility] [address] [place] [phone] Zachary Pelaez MD [address] [place] [address] Social History Tobacco Use Types Packs/Day Years [...] file Legal 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 Gender Identity Not on file Sexual Orientation Not on file Occupation Industry Job Start Date Job End Date retired Not on file Not on file Not on file documented as of this encounter Ordered Prescriptions Prescription Sig Dispense Quantity Refills Last Filled Start Date End Date traMADol (ULTRAM) 50 mg tablet Take 1 tablet (50 mg total) by mouth 2 (two) times a day as needed for pain 60 tablet 1 08/08/2019 09/25/2019 documented in this encounter Miscellaneous Notes * Telephone Encounter - Anuja Rome RN - 08/08/2019 10:22 AM PIPE LINER Per verbal order of Ana Fuller STAND UP FORKLIFT OPERATOR: Please order pt Tramadol 50 mg 1 tablet BID PRN. #60 with 1 refill. RX for: traMADol (ULTRAM) 50 mg tablet 50 mg, oral, 2 times daily PRN Summary: Take 1 tablet (50 mg total) by mouth 2 (two) times a day as needed for pain, Starting [place] 08/08/2019, Print Dose, Frequency: 50 mg, 2 times daily PRN Start: 08/08/2019 Ord/Sold: 08/08/2019 (O) Report Long-term: Pharmacy: [id number] [place] [id number] [facility] Med Dose History Patient Sig: Take 1 tablet (50 mg total) by mouth 2 (two) times a day as needed for pain Ordered on: 08/08/2019 Authorized by: ZACHARY PELAEZ Dispense: 60 tablet Refills: 1 ordered Ordered/printed/signed and faxed. Pt signed Controlled Substance Agreement at check out. LINER LINER documented in this encounter Plan of Treatment Not on file documented as of this encounter Visit Diagnoses Not on filedocumented in this encounter Care Teams Structural Analysis Engineer Relationship Specialty Start Date End Date Zachary Pelaez MD PCP - General 09/16/16 Hank Garibay MD [address] [facility] [address] [place] [address] Surgeon Orthopedic Surgery 03/27/17 Jacky Murry MD [address] [facility] [address] [place] [address] Ophthalmology 03/27/17 Puma Mckenzie MD [address] [facility] [address] [place] [address] Surgeon Orthopedic Surgery 07/11/19 documented as of this encounter
--- OUTSIDE RECORDS SUMMARY | 2024-06-18 19:01 | XMS_ITS | Encounter Summary ---
Author Organization [facility] Address [address] [facility] [address] [place] [address] Care Team Providers Care Ice Puller Name Role Phone Pepper Morgan MD Primary Care Provider + [phone] Hank Garibay MD Unavailable [phone] Jacky Murry MD Unavailable [phone] Puma Mckenzie MD Unavailable [phone] Encounter Details Date Type Department Care Team (Latest Contact Info) Description 03/31/2020 [facility] [address] [place] [phone] Anton Carver MA Need for vaccination Social History Tobacco Use Types Packs/Day Years [...] on file 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 Gender Identity Not on file Sexual Orientation Not on file Occupation Industry Job Start Date Job End Date retired Not on file Not on file Not on file documented as of this encounter Plan of Treatment Not on file documented as of this encounter Visit Diagnoses Diagnosis Need for vaccination Need for prophylactic vaccination and inoculation against unspecified single disease documented in this encounter Orders Immunization/Injection Count Last Ordered Date First Ordered Date FLU VACCINE HIGH DOSE QUAD P F 65Y+ IM - FLUZONE HIGH DOS 1 03/31/2020 documented in this encounter Care Teams Ice Puller Relationship Specialty Start Date End Date Pepper Morgan MD PCP - General 09/16/16 Hank Garibay MD [address] [facility] [address] [place] [address] Surgeon Orthopedic Surgery 03/27/17 Jacky Murry MD [address] [place] [address] [address] [place] [address] Ophthalmology 03/27/17 Puma Mckenzie MD [address] [place] [address] [address] [place] [address] Surgeon Orthopedic Surgery 07/11/19 documented as of this encounter
--- OUTSIDE RECORDS SUMMARY | 2024-06-18 19:01 | XMS_ITS | Encounter Summary ---
Author Organization [facility] Address [address] [facility] [address] [place] [id number] Care Team Providers Care Grain Receiver Name Role Phone Pepper Morgan MD Primary Care Provider [phone] Hank Garibay MD Unavailable [phone] Jacky Murry MD Unavailable [phone] Puma Mckenzie MD Unavailable [phone] Reason for Referral * Diagnostic Imaging (Routine) - Closed Specialty Diagnoses / Procedures Referred By Contac t Referred To Contact Diagnoses Cervical radiculopathy Procedures XR Spine Cervical W Flexion And Extension 6 or More Views Pepper Morgan MD Phone: tel: fax: [facility] Referral ID Status Reason Start Date Expiration Date Visits Re quested Visits Authorized [id number] Closed 09/25/2019 04/05/2021 1 1 Reason for Visit * Reason Comments Follow-up Encounter Details Date Type Department Care Team (Late st Contact Info) Description 09/25/2019 11:00 AM CDT Office Visit [facility] [address] [place] [phone] Pepper Morgan MD [address] [place] [address] Benign hypertension (Primary Dx); Hereditary essential tremor; Spinal stenosis of lumbar region with neurogenic claudication; Cervical radiculopathy; 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 legs syndrome; 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); Constipation due to opioid therapy Social History [...] on file Legal Sex 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 Gender Identity Not on file Sexual Orientation Not on file Occupation Industry Job Start Date Job End Date retired Not on file Not on file Not on file documented as of this encounter Last Filed Vital Signs Vital Sign Reading Time Taken Comments Blood Pressure 170/90 09/25/2019 12:34 PM CDT Pulse 58 09/25/2019 10:57 AM CDT Temperature 36.6 ??C (97.9 ??F) 09/25/2019 10:57 AM C DT Respiratory Rate 16 09/25/2019 10:57 AM CDT Oxygen Saturation 97% 09/25/2019 10:57 AM CDT Inhaled Oxygen Concentration - - Weight 87.7 kg (193 lb 6.4 oz) 09/25/2019 10:57 AM CDT Height - - Body Mass Index 37.77 08/22/2019 11:29 AM CHEMICAL TESTER documented in this encounter Patient Instructions * Patient Instructions* Pepper Morgan MD - 09/25/2019 11:00 AM CDT Orders for AMS STAFF to arrange 1. Refer Dr. Yenifer Gardiner for neck pain low back pain 2. C-spine x-ray today with flexion extension views copy of the disc to Dr. Yenifer Gardiner Copy of the lumbar spine x-ray also be made for Dr. Yenifer Gardiner 3. Refer remains open for physical therapy neck and back program, she will decide about taking thisin [place] or at the local senior center. The decision to be made based on where she will continuelong-term exercise and fitness strengthening after the therapy is done. Orders for Tess Mathewlianne to arrange 1. Medication changes -Stop aspirin [...] Mobic 7.5 mg daily for arthritis pain 2. Continue home blood pressure monitoring, I recommend testing mid day Patient Care Team: Pepper Morgan MD as PCP - General Pepper Morgan MD as PCP - [facility] Attributed PCP Hank Garibay MD as Surgeon (Orthopedic Surgery) Jacky Murry MD (Ophthalmology) Puma Mckenzie MD as Surgeon (Orthopedic Surgery) Return in about 8 weeks (around 11/18/2019) for Keep scheduled recheck. Orders Placed This Encounter Procedures ??? XR Spine Cervical W Flexion And Extension 6 or More Views ??? Ambulatory referral to Chiropractic A brief review of all your problems, medications, and orders from today ICD-9-CM ICD-10-CM 1. Benign hypertension 401.1 I10 spironolactone (Aldactone) 25 mg tablet 2. Hereditary essential tremor 333.1 G25.0 3. Spinal stenosis of lumbar region with neurogenic claudication 724.[address] (CYMBALTA) 20 mg capsule traMADoL (ULTRAM) 50 mg tablet meloxicam (MOBIC) 7.5 mg tablet Ambulatory referral to Chiropractic 4. Cervical radiculopathy 723.[address] (CYMBALTA) 20 mg capsule traMADoL (ULTRAM) 50 mg tablet meloxicam (MOBIC) 7.5 mg tablet XR Spine Cervical W Flexion And Extension 6 or More Views Ambulatory referral to Chiropractic 5. Restless legs syndrome 333.94 G25.81 pramipexole (MIRAPEX) 0.125 mg tablet 6. skilled nursing (current) use of non-steroidal anti-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s (nsaid) V58.[address] (PROTONIX) 20 mg EC tablet 7. Constipation due to opioid therapy 564.09 K59.03 senna-docusate (PERICOLACE) 8.6-50 mg E935.2 T40.2X5A For your records I have provided this [...] 04/26/2016 ??? Tdap 05/18/2011 Primary Pharmacy/DME suppliers: [id number] - [place] - [address] [place] [address] [place] [address] PLEASE BRING IN ALL PILL BOTTLES TO EVERY OFFICE VISIT, THIS IS ESSENTIAL FOR ACCURATE REFILLS AND MAINTAINING AN ACCURATE MEDICATION LIST. PLEASE SIGN UP FOR [id number] so that you may have access to your labs and chart documentation IF YOU HAVE TROUBLE WITH THIS PROCESS CALL [phone] Hypertension monitoring and non medication treatments Use a digital home blood pressure monitor 2 times weekly, record blood pressure and pulse results. Bring the BP monitor and results to every office follow-up. Your blood pressure goal is 100-140 over 60-90 range. Your pulse goal range is 60-100 ( lower numbers are better) If your BP is consistently above 140/90, or if you're pulses consistently above 100 or below 50 youwill require office follow-up. NON MEDICATION WAYS TO LOWER BLOOD PRESSURE : Limit caffeine to no more than 8 oz, 90 mg caffeine per day Limit sodium salt-to 2500 mg/day: avoid processed meats and snack foods Limit alcohol to 1 beverage maximum daily Try the ???DASH Diet and 30 min of challenging exercise daily documented in this encounter Ordered Prescriptions Prescription Sig Dispense Quantity Refills Last Filled Start Date End Date meloxicam (MOBIC) 7.5 mg tabletIndications:S jenni stenosis of lumbar region with neurogenic claudication,Cervic al radiculopathy Take 1 tablet (7.5 mg total) by mouth daily With the largest meal 90 tablet 1 09/25/2019 0 traMADoL (ULTRAM) 50 mg tabletIndications:S jenni stenosis of lumbar region with neurogenic claudication,Cervic al radiculopathy Take 1 tablet (50 mg total) by mouth 2 (two) times a day as needed for pain 60 tablet 5 09/25/2019 0 senna-docusate (PERICOLACE) 8.6-50 mgIndications:const ipation Take 1 tablet by mouth nightly 90 tablet 1 09/25/2019 0 spironolactone (Aldactone) 25 mg tabletIndications:B enign hypertension Take 1 tablet (25 mg total) by mouth daily 90 tablet 1 09/25/[address] (PROTONIX) 20 mg EC tabletIndications:L livier term (current) use of non-steroidal anti-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s (nsaid) Take 1 tablet (20 mg total) by mouth daily With the largest meal 90 tablet 1 09/25/[address] (CYMBALTA) 20 mg capsuleIndications: Spinal stenosis of lumbar region with neurogenic claudication,Cervic al radiculopathy Take 2 capsules (40 mg total) by mouth daily 60 capsule 6 09/25/2019 0 pramipexole (MIRAPEX) 0.125 mg tabletIndications:R estless legs syndrome Take 1-2 tablets by mouth every day 120 tablet 1 09/25/2019 0 documented in this encounter Progress Notes * Pepper Morgan MD - 09/25/2019 11:00 AM CDT ASSESSMENT AND PLAN Patient Instructions Orders for AMS STAFF to arrange 1. Refer Dr. Yenifer Gardiner for neck pain low back pain 2. C-spine x-ray today with flexion extension views copy of the disc to Dr. Yenifer Gardiner Copy of the lumbar spine x-ray also be made for Dr. Yenifer Gardiner 3. Refer remains open for physical therapy neck and back program, she will decide about taking thisin [place] or at the local senior center. The decision to be made based on where she will continuelong-term exercise and fitness strengthening after the therapy is done. Orders for Tess Benedict to arrange 1. Medication changes -Stop aspirin [...] Mobic 7.5 mg daily for arthritis pain 2. Continue home blood pressure monitoring, I recommend testing mid day Patient Care Team: Pepper Morgan MD as PCP - General Pepper Morgan MD as PCP - [facility] Attributed PCP Hank Garibay MD as Surgeon (Orthopedic Surgery) Jacky Murry MD (Ophthalmology) Puma Mckenzie MD as Surgeon (Orthopedic Surgery) Return in about 8 weeks (around 11/18/2019) for Keep scheduled recheck. Orders Placed This Encounter Procedures ??? XR Spine Cervical W Flexion And Extension 6 or More Views ??? Ambulatory referral to Chiropractic A brief review of all your problems, medications, and orders from today ICD-9-CM ICD-10-CM 1. Benign hypertension 401.1 I10 spironolactone (Aldactone) 25 mg tablet 2. Hereditary essential tremor 333.1 G25.0 3. Spinal stenosis of lumbar region with neurogenic claudication 724.[address] (CYMBALTA) 20 mg capsule traMADoL (ULTRAM) 50 mg tablet meloxicam (MOBIC) 7.5 mg tablet Ambulatory referral to Chiropractic 4. Cervical radiculopathy 723.[address] (CYMBALTA) 20 mg capsule traMADoL (ULTRAM) 50 mg tablet meloxicam (MOBIC) 7.5 mg tablet XR Spine Cervical W Flexion And Extension 6 or More Views Ambulatory referral to Chiropractic 5. Restless legs syndrome 333.94 G25.81 pramipexole (MIRAPEX) 0.125 mg tablet 6. 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 Constipation due to opioid therapy 564.09 K59.03 senna-docusate (PERICOLACE) 8.6-50 mg E935.2 T40.2X5A For your records I have provided this [...] 04/26/2016 ??? Tdap 05/18/2011 Primary Pharmacy/DME suppliers: [facility][id number] - [place] - [address] [facility] [address] [facility] [place] [address] PLEASE BRING IN ALL PILL BOTTLES TO EVERY OFFICE VISIT, THIS IS ESSENTIAL FOR ACCURATE REFILLS AND MAINTAINING AN ACCURATE MEDICATION LIST. PLEASE SIGN UP FOR [employer] so that you may have access to your labs and chart documentation IF YOU HAVE TROUBLE WITH THIS PROCESS CALL [phone] Hypertension monitoring and non medication treatments Use a digital home blood pressure monitor 2 times weekly, record blood pressure and pulse results. Bring the BP monitor and results to every office follow-up. Your blood pressure goal is 100-140 over 60-90 range. Your pulse goal range is 60-100 ( lower numbers are better) If your BP is consistently above 140/90, or if you're pulses consistently above 100 or below 50 youwill require office follow-up. NON MEDICATION WAYS TO LOWER BLOOD PRESSURE : Limit caffeine to no more than 8 oz, 90 mg caffeine per day Limit sodium salt-to 2500 mg/day: avoid processed meats and snack foods Limit alcohol to 1 beverage maximum daily Try the ???DASH Diet and 30 min of challenging exercise daily CHIEF COMPLAINT Follow-up HISTORY OF PRESENT ILLNESS Tess Benedict returns today for her six-month follow-up to review Chronic medical problems and discuss her concerns, Review new orders, and Update Medication Refill Management. Important details of this conversation, exam, and plan for care are summarized at the top and bottom of this comprehensive note for the readers quick access to the information. ORDERS FROM LAST VISIT 05/14/2019 1. Copy DMV sticker 2. Pain management referral for lumbar spinal stenosis offered with Dr. Jim or Dr. Eula horner, she will call back if she becomes interested 3. The DEXA bone density at next lab 4. She is not interested in mammogram, if she would like a screening mammogram she is welcome 5.Advanced directives Orders for Tess I Ashlymake to arrange 1. Resume home blood pressure monitoring and contact us for blood pressure above 150/90 2. Medication changes today begin Aldactone 25 mg every morning, this will help the arthritis and blood pressure 3. Stop naproxen and Aleve neither these work for your back or your hip pain problem Start Mobic 7.5 mg daily, if this helps but does not completely relieve the pain we could go as high as 15 mg provided labs are checked in a month Start Protonix 20 mg daily to protect the stomach from the arthritis medicine 4. Immunization recommendations I do recommend getting the 2 shot SHINGRIX series, this me not have any cost for you if he due before the end of the year 5. Refer to Dr. Davis to evaluate for progressive lenses ?? DETAILS REGARDING THIS VISIT: Tess reports feeling improved with her right hip following the June replacement but in a lot of trouble with her neck and low back : 1. Benign hypertension Taking her Aldactone daily, blood pressure were controlled 130-140 over 70 at home however she is very high in the office and did not bring her meter today. She will require follow-up in November and will continue home monitoring bring the meter to each office follow-up. Because she is doing reasonablywell at home we did continue on the new Aldactone 25 mg daily in combination with her usual Inderalthat helps for her tremor - spironolactone (Aldactone) 25 mg tablet; Take 1 tablet (25 mg total) by mouth daily Dispense: 90 tablet; Refill: 1 2. Hereditary essential tremor Tremors much better controlled maintaining neural 3. Spinal stenosis of lumbar region with neurogenic claudication She is having most of her problem in her left hip. She is very arthritic hip in his had good results with cortisone injection about a urine half ago. She had a right hip replaced and was really hard to recover from the she does not want to do another hip replacement. She feels great with the functional control of her right hip. She does have spinal stenosis of the back is not sure how much of her problems coming from her back verses her left hip. I have offered her referral to Dr. Mckenzie to do a cortisone injection in her hip and see if this works for her. This may give her 3+ months of relief of pain and will help sort out whether the problems coming from her back or her hip. She will contact us if she decides to make this move. She continues to have quite a bit of low back pain, she is using tramadol at night with good reliefof sleep. She is using Mobic is 7.5 mg daily for her arthritis. She has some relief with Tylenol. She is very worried about taking too much pain medication and getting tolerance. She does not want tosee pain management refuses to have consideration for epidural injections or any back surgeries. She is willing to work with chiropractor in physical therapy to improve strength. 4. Cervical radiculopathy New onset of neck pain radiating to the back of her head using Ultram at night but no other interventions. C-spine x-rays advise and referral to her chiropractor Yenifer Morgan as well as physical therapy wanted as once open again. Water class is recommended however she does not like to wear swim suit in public and declines this advise 5. Restless legs syndrome Rarely requiring more than 1 of the Mirapex daily. She has plenty of refills and will continue 0.125 occasionally taking 2 tablets in a day. I suspect a lot of the trouble with her restless leg is related to the severe back problems - pramipexole (MIRAPEX) 0.125 mg tablet; Take 1-2 tablets by mouth every day Dispense: 120 tablet; Refill: 1 6. skilled nursing (current) use of non-steroidal anti-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s (nsaid), history of mild NSAID gastritis She has been on aspirin 325 mg since her hip surgery. She has been taking Mobic 7.5. Her stomach medication Protonix has resolved all dyspepsia. We will stop aspirin and continue long-term combination of the Mobic 0+ Protonix monitoring kidney function. - pantoprazole DR (PROTONIX) 20 mg EC tablet; Take 1 tablet (20 mg total) by mouth daily With the largest meal Dispense: 90 tablet; Refill: 1 7. Constipation due to opioid therapy Postoperative per Colace worked great, will continue this medication for her tramadol constipation SOCIAL HISTORY Social History Tobacco Use ??? Smoking status: Former Smoker Last attempt to quit: 1991 Years since quittin.4 ??? Smokeless tobacco: Never Used Substance Use Topics ??? Alcohol use: Not Currently REVIEW OF SYSTEMS Review of Systems Constitutional: Negative for appetite change (Self imposed weight reduction diet), chills, fatigue,fever and unexpected weight change. HENT: Negative for [...] vaginal discharge. Musculoskeletal: Positive for back pain ( worse with walking activities) and gait problem (Related to low back pain). Negative for arthralgias, joint swelling and myalgias. Skin: Negative for color change and rash. Neurological: Negative for dizziness, seizures, weakness, numbness ( a sense of a numbness like discomfort develops after walking for short while making her physically feel bad) and headaches. Hematological: Negative for adenopathy. Does not bruise/bleed easily. Psychiatric/Behavioral: Negative for behavioral problems, dysphoric mood and sleep disturbance. Thepatient is not nervous/anxious. MEDICATIONS CHANGED / CLEANED UP THIS VISIT Medications Discontinued During This Encounter Medication Reason ??? pramipexole (MIRAPEX) 0.125 mg tablet ??? furosemide (LASIX) 20 mg tablet Therapy completed ??? aspirin 325 mg enteric coated tablet ??? pantoprazole DR (PROTONIX) 20 mg EC tablet Reorder ??? spironolactone (ALDACTONE) 25 mg tablet Reorder ??? senna-docusate (PERICOLACE) 8.6-50 mg Reorder ??? traMADol (ULTRAM) 50 mg tablet Reorder MEDICATION LIST AT CONCLUSION OF THIS VISIT Current Outpatient Medications Ordered in [facility] Medication Sig Dispense Refill ??? ascorbic acid (VITAMIN C) 500 mg tablet,chewable Take 1 tablet/chew tab (500 mg total) by mouthdaily (Patient not taking: Reported on 11/18/2019) 30 tablet/chew tab 0 ??? cholecalciferol (VITAMIN D3) 2,000 unit tablet Take 2,000 Units by mouth daily ??? biotin 10,000 mcg capsule Take by mouth ??? DULoxetine DR (CYMBALTA) 20 mg capsule [...] as needed for pain 60 tablet 5 No current Epic-ordered facility-administered medications on file. ALLERGIES is allergic to celecoxib; sulfa (sulfonamide antibiotics); amlodipine; lisinopril; trazodone; and scopolamine. PHYSICAL EXAM body mass index is 37.77 kg/m??. weight is 87.7 kg (193 lb 6.4 oz). Her tympanic temperature is 36.6 ??C (97.9 ??F). Her blood pressure is 170/90 and her pulse is 58. Her respiration is 16 and oxygen saturation is 97%. Physical Exam Vitals signs reviewed. Constitutional: General: She is not in acute distress. Appearance: Normal appearance. She is well-developed. She is obese. HENT: Head: Normocephalic. Right Ear: Tympanic membrane [...] light. Neck: Musculoskeletal: Normal range of motion. Muscular tenderness ( with right left lateral rotation of the neck tenderness up into the right side of the scalp) present. Thyroid: No thyromegaly. Comments: 20?? tonic kyphosis of the neck with diminished range of motion and tenderness with the range. Loss of normal lumbar lordotic curvature Cardiovascular: Rate and Rhythm: Normal rate and regular rhythm. Pulses: Normal pulses. Heart sounds: Normal heart sounds. No murmur. No gallop. Comments: Blood pressure very elevated on recheck Pulmonary: Effort: Pulmonary effort is normal. Breath sounds: Normal breath sounds. No wheezing, rhonchi or rales. Abdominal: General: Bowel sounds are normal. There is no distension. Palpations: Abdomen is soft. There is no mass. Tenderness: There is no abdominal tenderness. Hernia: No hernia is present. Comments: Moderate abdominal obesity but weight down 5 lb with her weight reduction diet Genitourinary: Rectum: Guaiac result positive. Musculoskeletal: Normal range of motion. General: Tenderness ( mid lumbar to lower lumbar spine paraspinous muscles are) and deformity (Atrophy of left arm unchanged from baseline) present. Right lower leg: No edema. Left lower leg: No edema. Lymphadenopathy: Cervical: No cervical adenopathy. Skin: General: Skin is warm and dry. Findings: No erythema, lesion or rash. Neurological: General: No focal deficit present. Mental Status: She is alert and oriented to person, place, and time. Mental status is at baseline. Cranial Nerves: No cranial nerve deficit. Motor: No abnormal muscle tone. Coordination: Coordination normal. Psychiatric: Mood and Affect: Mood normal. [...] of this encounter Results * XR Spine Cervical [...] Diagnosis Benign hypertension- Primary Essential hypertension, benign Hereditary essential tremor Essential and other specified forms of tremor Spinal stenosis of lumbar region with neurogenic claudication Cervical radiculopathy Brachial neuritis or radiculitis nos Restless legs syndrome Restless legs syndrome (RLS) skilled nursing (current) use of non-steroidal anti-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s (nsaid) Constipation due to opioid therapy Cervical radiculopathy Brachial neuritis or radiculitis nos documented in this encounter Discontinued Medications Medication Sig Discontinue Reason Start Date End Da te pramipexole (MIRAPEX) 0.125 mg tabletIndications:Restles s legs syndrome Take 1-2 tablets by mouth every day 05/14/2019 09/25/2019 furosemide (LASIX) 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:Bilater al leg edema Take 1 tablet (20 mg total) by mouth daily Therapy completed 08/12/2019 09/25/2019 aspirin 325 mg enteric coated tabletIndications:Deep Vein Thrombosis Prevention Take 1 tablet (325 mg total) by mouth daily 07/11/2019 09/25/[address] (PROTONIX) 20 mg EC tabletIndications: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) Take 1 tablet (20 mg total) by mouth daily With the largest meal Reorder 05/14/2019 09/25/2019 spironolactone (ALDACTONE) 25 mg tabletIndications:Benign hypertension Take 1 tablet (25 mg total) by mouth daily Reorder 05/14/2019 09/25/2019 senna-docusate (PERICOLACE) 8.6-50 mgIndications:constipatio n Take 2 tablets by mouth 2 (two) times a day Reorder 07/11/2019 09/25/2019 traMADol (ULTRAM) 50 mg tablet Take 1 tablet (50 mg total) by mouth 2 (two) times a day as needed for pain Reorder 08/08/2019 09/25/2019 documented as of this encounter Care Teams Grain Receiver Relationship Specialty Start Date End Date Pepper Morgan MD PCP - General 09/16/16 Hank Garibay MD [address] [facility] [address] [address] [place] [address] Surgeon Orthopedic Surgery 03/27/17 Jacky Murry MD [address] [facility] [address] [place] [place] [address] [address] Ophthalmology 03/27/17 Puma Mckenzie MD [address] [facility] [address] [place] [address] [address] Surgeon Orthopedic Surgery 07/11/19 documented as of this encounter
--- OUTSIDE RECORDS SUMMARY | 2024-06-18 19:01 | XMS_ITS | Encounter Summary ---
Author Organization [facility] Healthcare Address [address] [place] [address] Care Team Providers Care Medical Csr Name Role Phone Pepper Morgan MD Primary Care Provider + [phone] Hank Garibay MD Unavailable [phone] Jacky Murry MD Unavailable [phone] Puma Mckenzie MD Unavailable [phone] Encounter Details Date Type Department Care Team (Late st Contact Info) Description 05/12/2020 2:05 PM MAINTENANCE TECHNICIAN 2ND SHIFT Lab [address] [address] Benign hypertension Social History Tobacco Use Types [...] file Legal Sex Female 4:33 AM MAINTENANCE TECHNICIAN 2ND SHIFT Gender Identity Not on file Sexual Orientation Not on file Occupation Industry Job Start Date Job End Date retired Not on file Not on file Not on file documented as of this encounter Plan of Treatment Not on file documented as of this encounter Procedures Procedure Name Priority Date/Time Associated Diagnosis Comments EGFR Routine 05/12/2020 9:08 AM MAINTENANCE TECHNICIAN 2ND SHIFT Benign hypertension CHOLESTEROL, LDL, DIRECT Routine 05/12/2020 9:08 AM MAINTENANCE TECHNICIAN 2ND SHIFT Benign hypertension COMPREHENSIVE METABOLIC PANEL Routine 05/12/2020 9:08 AM MAINTENANCE TECHNICIAN 2ND SHIFT Benign hypertension documented in this encounter Results * eGFR (05/12/2020 9:08 AM MAINTENANCE TECHNICIAN 2ND SHIFT) [facility] Signature eGFR 83 mL/min/1.7 3 m2 [facility] Comment: Interpretive Data Reference Interval Normal ?>/= 90 mL/min/1.73m2 Mildly decreased* ? 60 - 89 mL/min/1.73m2 Mildly to moderately decreased ?45 - 59 mL/min/1.73m2 Moderately to severely decreased ??30 - 44 mL/min/1.73m2 Severely decreased ?15 - 29 mL/min/1.73m2 Kidney Failure ?< 15 ??mL/min/1.73m2 *Relative to young adult level If -Ugandan multiply value by 1.16. Estimated glomerular filtration [...] was last reviewed 2016. Blood specimen (specimen) 05/12/2020 9:08 AM MAINTENANCE TECHNICIAN 2ND SHIFT 05/12/2020 2:15 PM MAINTENANCE TECHNICIAN 2ND SHIFT us Pepper Morgan MD LAB BLOOD ORDERABLES Final Result [facility] [address] Department [place] [address] * Cholesterol, LDL, direct (05/12/2020 9:08 AM MAINTENANCE TECHNICIAN 2ND SHIFT) LDL Cholesterol, Direct 121 <=129 mg/dL [facility] Comment: Interpretive Data Ages < or = [...] 2018. Blood specimen (specimen) 05/12/2020 9:08 AM MAINTENANCE TECHNICIAN 2ND SHIFT 05/12/2020 2:10 PM MAINTENANCE TECHNICIAN 2ND SHIFT us Pepper Morgan MD LAB BLOOD ORDERABLES Final Result [facility] [id number] Department [place] [address] * (ABNORMAL) Comprehensive metabolic panel (05/12/2020 9:08 AM MAINTENANCE TECHNICIAN 2ND SHIFT) Sodium 136 135 - 145 mmol/L [facility] [...] CH Blood specimen (specimen) 05/12/2020 9:08 AM MAINTENANCE TECHNICIAN 2ND SHIFT 05/12/2020 2:10 PM MAINTENANCE TECHNICIAN 2ND SHIFT us Pepper Morgan MD LAB BLOOD ORDERABLES Final Result [facility] [address] Department [place] [address] documented in this encounter Visit Diagnoses Diagnosis Benign hypertension Essential hypertension, benign documented in this encounter Care Teams Medical Csr Relationship Specialty Start Date End Date Pepper Morgan MD PCP - General 09/16/16 Hank Garibay MD 4 [facility] [address] [place] [address] Surgeon Orthopedic Surgery 03/27/17 Jacky Murry MD 4 [facility] [address] [place] [address] Ophthalmology 03/27/17 Puma Mckenzie MD 4 [facility] [address] [place] [facility] [address] [place] [address] Surgeon Orthopedic Surgery 07/11/19 documented as of this encounter
--- OUTSIDE RECORDS SUMMARY | 2024-06-18 19:01 | XMS_ITS | Encounter Summary ---
Author Organization [facility] Medical Group Address [address] [address] Care Team Providers Care Tender Coordinator Name Role Phone Pepper Morgan MD Primary Care Provider + [phone] Hank Garibay MD Unavailable [phone] Jacky Murry MD Unavailable [phone] Puma Mckenzie MD Unavailable [phone] Encounter Details Date Type Department Care Team (Late st Contact Info) Description 08/08/2019 11:00 AM CRM MARKETING EXECUTIVE [facility] [address] [place] [phone] Benign hypertension Social History Tobacco Use Types [...] benign documented in this encounter Care Teams Tender Coordinator Relationship Specialty Start Date End Date Pepper Morgan MD PCP - General 09/16/16 Hank Garibay MD [address] [facility] [address] [place] [address] Surgeon Orthopedic Surgery 03/27/17 Jacky Murry MD [address] [facility] [address] [place] [address] Ophthalmology 03/27/17 Puma Mckenzie MD [address] [facility] [address] [place] [address] Surgeon Orthopedic Surgery 07/11/19 documented as of this encounter
--- OUTSIDE RECORDS SUMMARY | 2024-06-18 19:02 | XMS_ITS | Encounter Summary ---
Author Organization [facility] Medical Group Address [address] [facility] [address] [place] [address] Care Team Providers Care Expense Analyst Name Role Phone Pepper Morgan MD Primary Care Provider +- [phone] Hank Garibay MD Unavailable [phone] Jacky Murry MD Unavailable [phone] Puma Mckenzie MD Unavailable [phone] Reason for Referral * Diagnostic Imaging (Routine) - Closed Specialty Diagnoses / Procedures Referred By Contac t Referred To Contact Diagnoses Aftercare following right hip joint replacement surgery Procedures XR Hip Right 2+ Vw Kathie Cox PA Phone: tel: fax: Referral ID Status Reason Start Date Expiration Date Visits Re quested Visits Authorized [id number] Closed 07/24/2019 02/01/2021 1 1 KER WIRER Reason for Visit * Reason Comments Post-op Encounter Details Date Type Department Care Team (Late st Contact Info) Description 07/24/2019 10:15 AM SPEAKER WIRER Office Visit [facility] Medical [facility] Orthopedics and Sports Medicine [address] [place] [address] [address] [address] [place] [address] [place] [address] Aftercare following right hip joint replacement surgery (Primary Dx) Social [...] on file Legal Sex Female 4:33 AM SPEAKER WIRER Gender Identity Not on file Sexual Orientation Not on file Occupation Industry Job Start Date Job End Date retired Not on file Not on file Not on file documented as of this encounter Last Filed Vital Signs Vital Sign Reading Time Taken Comments Blood Pressure 125/66 07/24/2019 10:03 AM SPEAKER WIRER Pulse 63 07/24/2019 10:03 AM SPEAKER WIRER Temperature - - Respiratory Rate - - Oxygen Saturation - - Inhaled Oxygen Concentration - - Weight 96.3 kg (212 lb 3.2 oz) 07/24/2019 10:03 AM SPEAKER WIRER Height 152.4 cm (5') 07/24/2019 10:03 AM SPEAKER WIRER Body Mass Index 41.44 07/24/2019 10:03 AM SPEAKER WIRER documented in this encounter Progress Notes * Kathie Cox PA - 07/24/2019 10:15 AM CST POST-OPERATIVE PROGRESS NOTE History of Present Illness Patient is a 83 y.o. female who presents for a 2 week follow-up s/p right total hip arthroplasty. The patient has been progressing well. She reports increased bilateral swelling, worse in RLE. She denies calf pain or tenderness. She has a small area of mild erythema over her jaimes and foot. She has been on lasix in the past but has not been on this for some time. She reports problems with swelling with her knee replacements as well. Pain is well controlled with oral pain medications. ROS Negative except for stated in HPI. Physical Exam Patient is A&Ox3, NAD. Incision healing well without erythema or drainage. Prineo mesh in place. Small area of maceration at the crease, no dehiscence. Good hip ROM without impingement. Leg lengths equal bilaterally. Ambulates well with minimal limp or antalgic gait. SILT, good DF/PF. 2+ distalpulses. RLE edematous with mild erythema over calf. No pain on compression or with DF/PF. XR Interpretation X-rays show well positioned hip arthroplasty without interval change. No acute pathology is noted. Assessment 1. S/P right ASHLEE, progressing well. Plan 1. Continue WBAT and activity as tolerated. I recommended that she have a doppler completed on her RLE. She declined at this time. I discussed with her the possible risk for DVT/PE. I recommended sheclosely monitor her swelling and erythema. If it worsens or she has any pain, she knows to call theoffice or go to the ED. She will discuss with her PCP regarding her bilateral swelling. She will monitor her incision closely and keep clean and dry. 2. Continue ASA 325mg daily for post-operative DVT prophylaxis x 4 weeks. 3. Continue home therapy and daily home exercise program. 4. Follow up in 4 weeks for re-evaluation. Cosigned by Puma Mckenzie MD at 07/24/2019 11:31 AM SPEAKER WIRER KER WIRER KER WIRER documented in this encounter Plan of Treatment Not on file documented as of this encounter Procedures Procedure Name Priority Date/Time Associated Diagnosis Comments XR HIP RIGHT 2 OR 3 VIEWS Schedule Routine, Read Routine (OP Routine) 07/24/2019 10:36 AM SPEAKER WIRER Aftercare following right hip joint replacement surgery documented in this encounter Results * XR Hip Right 2+ Vw (07/24/2019 10:36 AM SPEAKER WIRER) Anatomical Region Laterality Modality Lower Extremities, Hip, Pelvis Right D igital Radiography Narrative 07/24/2019 10:36 AM SPEAKER WIRER Radiographs taken of the right hip today reveal a total hip arthroplasty in appropriate position with no interval change from the time of surgery. Kathie BRUCE IMG XR PROCEDURES F inal Result documented in this encounter Visit Diagnoses Diagnosis Aftercare following right hip joint replacement surgery- Primary documented in this encounter Care Teams Expense Analyst Relationship Specialty Start Date End Date Pepper Morgan MD PCP - General 09/16/16 Hank Garibay MD [address] [facility] [address] [place] [address] Surgeon Orthopedic Surgery 03/27/17 Jacky Murry MD [address] [facility] [address] [place] [address] Ophthalmology 03/27/17 Puma Mckenzie MD [address] [facility] [address] [place] [address] Surgeon Orthopedic Surgery 07/11/19 documented as of this encounter
--- OUTSIDE RECORDS SUMMARY | 2024-06-18 19:02 | XMS_ITS | Encounter Summary ---
Author Organization [facility] Medical Group Address [address] [facility] [address] [place] [address] Care Team Providers Care Signing Teacher Name Role Phone Pepper Morgan MD Primary Care Provider + [phone] Hank Garibay MD Unavailable [phone] Jacky Murry MD Unavailable [phone] Encounter Details Date Type Department Care Team (Late st Contact Info) Description 05/23/2019 Telephone [facility] [address] [place] [id number] Pepper Morgan MD [address] [place] [address] Social History Tobacco Use Types Packs/Day Years Used Date Smoking Tobacco: Former Smokeless Tobacco: Never Alcohol Use Standard Drinks/Week Comments Not Currently 0 (1 standard drink = 0.6 oz pur e alcohol) PHQ-2 Answer Date Recorded PHQ-2 Score 0 05/14/2019 Comments No Sex and Gender Information Value Date Recorded Sex Assigned at Not on file Legal Sex Female 4:33 AM CHILD CARE SITTER Gender Identity Not on file Sexual Orientation Not on file Occupation Industry Job Start Date Job End Date retired Not on file Not on file Not on file documented as of this encounter Miscellaneous Notes * Telephone Encounter - Althea Jacob MA - 05/28/2019 2:00 PM CST Referral sent to Dr. Jim's office, patient is aware referral was sent and they will be in contact to schedule. Patient voiced understanding. D CARE SITTER * Telephone Encounter - Pepper Morgan MD - 05/24/2019 9:18 AM CHILD CARE SITTER That is [facility] to Dr. Jim diagnosis = chronic pain disorder, suspected spinal stenosis evaluate for epidural injections stop the go ahead and send my last note D CARE SITTER * Telephone Encounter - Natasha Joshua RN - 05/24/2019 9:06 AM CHILD CARE SITTER TO ADMIN: Please Send referral to DR Jim for back and hip pain. TO KMS: Update - pt declined chiropractor visit. Pt will instead see Dr. Tamayo. Called and spoke to pt. Pt reports that she is having second thoughts about going to a chiropractor. She says that her Right hip has been bothering her a lot and should would prefer a referral to Dr Jim as discussed in 05/20/19 telephone encounter. Informed pt that we will send referral and to call us back if she does not hear from his office in the next week. Pt verbalized understanding of the conversation. D CARE SITTER * Telephone Encounter - Pepper Morgan MD - 05/23/2019 8:07 PM CHILD CARE SITTER I think that's a good idea, I recommend Dr. Jackson Gardiner if she does not have a chiropractor D CARE SITTER * Telephone Encounter - Vickie Araujo - 05/23/2019 10:42 AM CST Patient was switched back to aleve and she is doing better. The pain is still there. She is thinking about going to chiropractor to see if that would help before she goes to the pain center. Is this ok? Cbn: [phone] D CARE SITTER documented in this encounter Plan of Treatment Not on file documented as of this encounter Visit Diagnoses Diagnosis Chronic pain disorder- Primary Chronic pain syndrome Primary osteoarthritis of right hip documented in this encounter Care Teams Signing Teacher Relationship Specialty Start Date End Date Pepper Morgan MD PCP - General 09/16/16 Hank Garibay MD [address] [facility] [address] [place] [address] Surgeon Orthopedic Surgery 03/27/17 Jacky Murry MD [address] [place] [address] [address] [place] [address] Ophthalmology 03/27/17 documented as of this encounter
--- OUTSIDE RECORDS SUMMARY | 2024-06-18 19:02 | XMS_ITS | Encounter Summary ---
Author Organization [facility] Healthcare Address [address] [place] [address] Care Team Providers Care Commercial Director Name Role Phone Pepper Morgan MD Primary Care Provider +- [phone] Hank Garibay MD Unavailable [phone] Jacky Murry MD Unavailable [phone] Encounter Details Date Type Department Care Team (Late st Contact Info) Description 03/18/2019 5:50 PM CDT Lab [address] [address] Hyponatremia; Benign hypertension Social History Tobacco Use Types Packs/Day Years Used Date Smoking Tobacco: Former Smokeless Tobacco: Never Alcohol Use Standard Drinks/Week Comments Not Currently 0 (1 standard drink = 0.6 oz pur e alcohol) Comments No Sex and Gender Information Value Date Recorded Sex Assigned at Not on file Legal Sex Female 4:33 AM ANESTHESIOLOGY FELLOW Gender Identity Not on file Sexual Orientation Not on file Occupation Industry Job Start Date Job End Date retired Not on file Not on file Not on file documented as of this encounter Plan of Treatment Not on file documented as of this encounter Procedures Procedure Name Priority Date/Time Associated Diagnosis Comments EGFR Routine 03/18/2019 9:15 AM CDT Benign hypertension CHOLESTEROL, LDL, DIRECT Routine 03/18/2019 9:15 AM CDT Benign hypertension COMPREHENSIVE METABOLIC PANEL Routine 03/18/2019 9:15 AM CDT Benign hypertension documented in this encounter Results * eGFR (03/18/2019 9:15 AM CDT) eGFR 80 mL/min/1.7 3 m2 [facility] Comment: Interpretive Data Reference Interval Normal ?>/= 90 mL/min/1.73m2 Mildly decreased* ? 60 - 89 mL/min/1.73m2 Mildly to moderately decreased ?45 - 59 mL/min/1.73m2 Moderately to severely decreased ??30 - 44 mL/min/1.73m2 Severely decreased ?15 - 29 mL/min/1.73m2 Kidney Failure ?< 15 ??mL/min/1.73m2 *Relative to young adult level If -Uzbek multiply value by 1.16. Estimated glomerular filtration [...] was last reviewed 2016. Blood specimen (specimen) 03/18/2019 9:15 AM CDT 03/18/2019 6:09 PM CDT us Pepper Morgan MD LAB BLOOD ORDERABLES Final Result [facility] [address] [place] [address] * Cholesterol, LDL, direct (03/18/2019 9:15 AM CDT) LDL Cholesterol, Direct 101 <=129 mg/dL [facility] Comment: Interpretive Data Ages < or = [...] last revised on 2018. Blood specimen (specimen) 03/18/2019 9:15 AM CDT 03/18/2019 5:57 PM CDT us Pepper Morgan MD LAB BLOOD ORDERABLES Final Result [facility] [address] [place] [address] * Comprehensive metabolic panel (03/18/2019 9:15 AM CDT) Sodium 138 135 - 145 mmol/L [facility] Potassium, pl 4.5 3.3 - 4.9 mmol/L [facility] Chloride 97 97 - 110 mmol/L [facility] CO2 29 22 - 32 mmol/L [facility] Anion gap 12 2 - 15 mmol/L [facility] BUN 16 8 - 25 mg/dL [facility] Creatinine 0.71 0.60 - 1.10 mg/dL [facility] Glucose 96 70 - 199 mg/dL [facility] Comment: Interpretive Data Fasting glucose [...] 2017. Calcium 9.5 8.5 - 10.3 mg/dL [facility] Bilirubin, total 0.3 0.1 - 1.2 mg/dL [facility] Protein, pl 7.3 6.5 - 8.5 g/dL [facility] Albumin 4.1 3.5 - 5.0 g/dL [facility] Alk phos 98 40 - 130 Units/L [facility] ALT 45 7 - 45 Units/L [facility] AST 40 10 - 45 Units/L [facility] Blood specimen (specimen) 03/18/2019 9:15 AM CDT 03/18/2019 5:57 PM CDT Pepper Morgan MD LAB BLOOD ORDERABLES Final Result Performing Organization Address City/State/[facility] Co de Phone Number [facility] [address] [place] [address] documented in this encounter Visit Diagnoses Diagnosis Hyponatremia Hyposmolality and/or hyponatremia Benign hypertension Essential hypertension, benign documented in this encounter Care Teams Commercial Director Relationship Specialty Start Date End Date Pepper Morgan MD PCP - General 09/16/16 Hank Garibay MD 4 [facility] [address] [place] [address] Surgeon Orthopedic Surgery 03/27/17 Jacky Murry MD [address] [place] [address] [address] [place] [address] Ophthalmology 03/27/17 documented as of this encounter
--- OUTSIDE RECORDS SUMMARY | 2024-06-18 19:02 | XMS_ITS | Encounter Summary ---
Author Organization [facility] Medical [facility] Address [address] [facility] [address] [place] [address] Care Team Providers Care Mainframe Applications Developer Name Role Phone Pepper Morgan MD Primary Care Provider + [phone] Hank Garibay MD Unavailable [phone] Jacky Murry MD Unavailable [phone] Encounter Details Date Type Department Care Team (Late st Contact Info) Description 05/03/2019 Telephone [facility] Orthopedics and Sports Medicine [address] [place] [address] [address] [address] Mckenzie Collins MA Social History [...] file Legal Sex Female 4:33 AM MANAGER INTERNATIONAL Gender Identity Not on file Sexual Orientation Not on file Occupation Industry Job Start Date Job End Date retired Not on file Not on file Not on file documented as of this encounter Miscellaneous Notes * Telephone Encounter - Mckenzie Collins MA - 05/03/2019 4:38 PM CST Called and left a message for patient with details. Thank you [employer] * Telephone Encounter - Hannah Emmanuel PA - 05/03/2019 9:47 AM MANAGER INTERNATIONAL The patient may continue with ibuprofen twice daily for the next few weeks or I can send in a prescription oral antiinflammatory if she would like. Thank you. [employer] * Telephone Encounter - Mckenzie Collins MA - 05/03/2019 8:42 AM CST Patient called and was seen with Susy in March, had a injection under fluoro, this helped for about 2 weeks. She states she is in excruciating pain, she does not like pain medication. She has been taking 2 Ibuprofen in the morning only. Please advise.. New n-said, take a regimen of the Ibuprofen consistently for so many days? Patient still not really interested in surgery. Thank you [employer] documented in this encounter Plan of Treatment Not on file documented as of this encounter Visit Diagnoses Not on filedocumented in this encounter Care Teams Mainframe Applications Developer Relationship Specialty Start Date End Date Pepper Morgan MD PCP - General 09/16/16 Hank Garibay MD [address] [place] [address] [address] [place] [address] Surgeon Orthopedic Surgery 03/27/17 Jacky Murry MD [address] [place] [address] [address] [place] [address] Ophthalmology 03/27/17 documented as of this encounter
--- OUTSIDE RECORDS SUMMARY | 2024-06-18 19:02 | XMS_ITS | Encounter Summary ---
Author Organization Formerly [facility] Address [address] [place] [address] Care Team Providers Care Business Performance Specialist Name Role Phone Pepper Morgan MD Primary Care Provider +- [phone] Hank Garibay MD Unavailable [phone] Jacky Murry MD Unavailable [phone] Reason for Referral * (Routine) - Closed Specialty Diagnoses / Procedures Referred By Olga uribe Referred To Contact Diagnoses Pre-op testing Procedures ECG 12 lead Puma Mckenzie MD Phone: tel: [address] [phone] Referral ID Status Reason Start Date Expiration Date Visits Re quested Visits Authorized [id number] Closed 06/27/2019 01/05/2021 1 1 ESSIONAL FEE CODER Reason for Visit * (Routine) - Closed Specialty Diagnoses / Procedures Referred By Olga uribe Referred To Contact Diagnoses Pre-op testing Procedures ECG 12 lead Puma Mckenzie MD Phone: tel: [address] [phone] Referral ID Status Reason Start Date Expiration Date Visits Re quested Visits Authorized [id number] Closed 06/27/2019 01/05/2021 1 1 Encounter Details Date Type Department Care Team (Latest Contact Info) Description 07/01/2019 9:45 AM PROFESSIONAL FEE CODER - 07/01/2019 9:59 AM PROFESSIONAL FEE CODER Hospital Encounter [facility] Cardiology [address] [place] [address] Puma Mckenzie MD [address] [place] [address] [address] [place] [address] Pre-op testing Discharge Disposition: Discharge to home or self [...] file Legal Sex Female 4:33 AM PROFESSIONAL FEE CODER Gender Identity Not on file Sexual Orientation [...] mouth daily 30 tablet/chew tab 07/11/2019 1 aspirin 325 mg EC tablet Take 1 tablet (325 mg total) by mouth 2 (two) times a day for 28 days. 56 tablet 02/07/2017 0 aspirin 325 mg enteric coated tabletIndications:De ep Vein Thrombosis Prevention Take 1 tablet (325 mg total) by mouth daily 42 tablet 07/11/2019 0 felodipine (PLENDIL) 5 mg 24 hr tabletIndications:Be nign hypertension Take 1 tablet (5 mg total) by mouth daily 90 tablet 1 05/14/2019 0 ferrous sulfate 325 mg (65 mg of elemental iron) tabletIndications:Ir on Deficiency Anemia,Anemia prevention Take 1 tablet (325 mg total) by mouth daily with breakfast 30 tablet 07/11/2019 0 HYDROcodone-acetamin ophen (NORCO) 5-325 mg per tabletIndications:Pa in Take 1-2 tablets by mouth every 4 (four) hours as needed for pain 60 tablet 07/12/2019 0 naproxen (ALEVE) 220 mg tablet Take 220 mg by mouth 2 (two) times a day with meals 0 ondansetron ODT (ZOFRAN-ODT) 4 mg disintegrating tabletIndications:na usea and vomiting Take 1 tablet (4 mg total) by mouth every 6 (six) hours as needed for nausea or vomiting 20 tablet 07/11/2019 0 oxyCODONE-acetaminop hen (PERCOCET) 5-325 mg per tabletIndications:Pa in Take 1-2 tablets by mouth every 4 (four) hours as needed for pain 60 tablet 07/11/[address] (PROTONIX) 20 mg EC tabletIndications:Lo ng term (current) use of non-steroidal anti-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s (nsaid) Take 1 tablet (20 mg total) by mouth daily With the largest meal 30 tablet 6 05/14/2019 0 pramipexole (MIRAPEX) 0.125 mg tabletIndications:Re stless legs syndrome Take 1-2 tablets by mouth every day 180 tablet 2 05/14/2019 0 propranolol (INDERAL) 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:Be nign hypertension,Heredit elmer essential tremor Take 1 tablet (20 mg total) by mouth 2 (two) times a day 180 tablet 2 05/14/2019 0 senna-docusate (PERICOLACE) 8.6-50 mgIndications:consti pation Take 2 tablets by mouth 2 (two) times a day 30 tablet 07/11/2019 0 spironolactone (ALDACTONE) 25 mg tabletIndications:Be nign hypertension Take 1 tablet (25 mg total) by mouth daily 30 tablet 6 05/14/2019 0 documented as of this encounter Discharge Disposition Disposition Code Departure Means Destination Discharge to home or self care documented in this encounter Plan of Treatment Not on file documented as of this encounter Procedures Procedure Name Priority Date/Time Associated Diagnosis Comments ECG 12-LEAD Routine 07/01/2019 10:39 AM PROFESSIONAL FEE CODER Pre-op testing documented in this encounter Results * ECG 12 lead (07/01/2019 10:39 AM PROFESSIONAL FEE CODER) 07/01/2019 10:3 7 AM PROFESSIONAL FEE CODER Narrative [facility] - 07/01/2019 12:09 PM PROFESSIONAL FEE CODER Vent Rate: 51 bpm RR Interval: 1159 msec NC Interval: 183 msec QRS Duration: 76 msec QT Interval: 438 msec QTC Interval: 416 msec P-R-T [place]: 79 - 36 - 57 degrees SINUS BRADYCARDIA WITH OCCASIONAL SUPRAVENTRICULAR PREMATURE COMPLEXES No previous tracing is available for comparison Electronically Signed By: Dr Saud Ayers us Puma Mckenzie MD ECG ORDERABLES Final Re sult [facility] documented in this encounter Visit Diagnoses Diagnosis Pre-op testing Unspecified pre-operative examination documented in this encounter Care Teams Business Performance Specialist Relationship Specialty Start Date End Date Pepper Morgan MD PCP - General 09/16/16 Hank Garibay MD [address] [place] [address] [address] [address] Surgeon Orthopedic Surgery 03/27/17 Jacky Murry MD [address] [place] [address] [address] [place] [address] Ophthalmology 03/27/17 documented as of this encounter
--- OUTSIDE RECORDS SUMMARY | 2024-06-18 19:02 | XMS_ITS | Encounter Summary ---
Author Organization [facility] Address [address] [place] [address] Care Team Providers Care Box Fabricator Name Role Phone Pepper Morgan MD Primary Care Provider [phone] Hank Garibay MD Unavailable [phone] Jacky Murry MD Unavailable [phone] Reason for Referral * Diagnostic Imaging (Routine) - Closed Specialty Diagnoses / Procedures Referred By Contac t Referred To Contact Diagnoses Primary osteoarthritis of right hip Procedures FL Fluoro Guided Injection Hip Right Susy Hummel PA [address] [place] [address] [address] [place] [address] Phone: tel: fax: [address] [phone] Referral ID Status Reason Start Date Expiration Date Visits Re quested Visits Authorized [id number] Closed 03/27/2019 10/05/2020 1 1 Reason for Visit * Diagnostic Imaging (Routine) - Closed Specialty Diagnoses / Procedures Referred By Contnahun uribe Referred To Contact Diagnoses Primary osteoarthritis of right hip Procedures FL Fluoro Guided Injection Hip Right Susy Hummel PA [address] [place] [address] [address] [place] [address] Phone: tel: fax: [address] [phone] Referral ID Status Reason Start Date Expiration Date Visits Re quested Visits Authorized [id number] Closed 03/27/2019 10/05/2020 1 1 Encounter Details Date Type Department Care Team (Latest Contact Info) Description 04/08/2019 12:44 PM CDT - 04/08/2019 11:59 PM CDT Hospital Encounter [facility] [address] [place] [address] Puma Mckenzie MD [address] [facility] [address] [place] [address] Asmita Tipton Lyndsi Kristine, PA [address] [facility] [address] [place] [address] Primary osteoarthritis of right hip Discharge Disposition: Discharge to home or self care Social History Tobacco Use Types Packs/Day Years Used Date Smoking Tobacco: Former Smokeless Tobacco: Never Alcohol Use Standard Drinks/Week Comments Not Currently 0 (1 standard drink = 0.6 oz pur e alcohol) Comments No Sex and Gender Information Value Date Recorded Sex Assigned at Not on file Legal Sex Female 4:33 AM CONVENTION PLANNER Gender Identity Not on file Sexual Orientation Not on file Occupation Industry Job Start Date Job End Date retired Not on file Not on file Not on file documented as of this encounter Medications at Time of Discharge albuterol HFA (PROVENTIL HFA,VENTOLIN HFA,PROAIR HFA) 90 mcg/actuation inhaler INHALE 1 TO 2 PUFFS PO Q 4 H PRN SOB 0 03/14/2019 0 aspirin 325 mg EC tablet Take 1 tablet (325 mg total) by mouth 2 (two) times a day for 28 days. 56 tablet 02/07/2017 0 famotidine-Ca carb-mag hydrox (PEPCID COMPLETE) 10-800-165 mg chewable tablet Take 1 tablet by mouth daily as needed for heartburn. 0 felodipine (PLENDIL) 5 mg 24 hr tabletIndications: Benign hypertension Take 1 tablet (5 mg total) by mouth daily 90 tablet 1 10/30/2018 9 pramipexole (MIRAPEX) 0.125 mg tabletIndications: Restless legs syndrome Take 1-2 tablets by mouth every day 180 tablet 2 10/30/2018 9 propranolol (INDERAL) 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: Benign hypertension,Hered itary essential tremor Take 1 tablet (20 mg total) by mouth 2 (two) times a day 180 tablet 2 10/30/2018 9 documented as of this encounter Discharge Disposition Disposition Code Departure Means Destination Discharge to home or self care documented in this encounter Plan of Treatment Not on file documented as of this encounter Procedures Procedure Name Priority Date/Time Associated Diagnosis Comments FLUORO GUIDED INJECTION HIP RIGHT Schedule Routine, Read Routine (OP Routine) 04/08/2019 1:26 PM CDT Primary osteoarthritis of right hip documented in this encounter Results * FL Fluoro Guided Injection Hip Right (04/08/2019 1:26 PM CDT) Anatomical Region Laterality Modality Hip Right Radio Fluoroscop y 04/08/2019 1:30 PM CDT Impressions 04/08/2019 1:32 PM CDT SUCCESSFUL RIGHT HIP JOINT STEROID INJECTION. Electronically signed by: Venus Byers 04/08/2019 1:32 PM CDT FL FLUORO GUIDED INJECTION HIP RIGHT HISTORY: Unilateral primary osteoarthritis, right hip. Informed consent was obtained, including risks and complications. Timeout was performed prior to the procedure. The right hip was prepped and draped in usual sterile fashion. ??1% lidocaine utilized for local anesthesia. ??Under local anesthesia and using sterile technique a 22-gauge spinal needle was advanced into the right hip joint under fluoroscopic control. ??Omnipaque 240 contrast was infused through the needle into the right hip joint. ??80 mg Depo-Medrol and 3 mL of lidocaine were then infused through the needle into the right hip joint. ??The needle was withdrawn. ??Adhesive bandage placed over the needle insertion site. Patient tolerated procedure well. ??No immediate complications. Patient left the department in good condition. Fluoroscopy time 0.2 minutes. Procedure Note Marcus Kearns MD - 04/08/2019 FL FLUORO GUIDED INJECTION HIP RIGHT HISTORY: Unilateral primary osteoarthritis, right hip. Informed consent was obtained, including risks and complications. Timeout was performed prior to the procedure. The right hip was prepped and draped in usual sterile fashion. 1% lidocaine utilized for local anesthesia. Under local anesthesia and using sterile technique a 22-gauge spinal needle was advanced into the right hip joint under fluoroscopic control. Omnipaque 240 contrast was infused through the needle into the right hip joint. 80 mg Depo-Medrol and 3 mL of lidocaine were then infused through the needle into the right hip joint. The needle was withdrawn. Adhesive bandage placed over the needle insertion site. Patient tolerated procedure well. No immediate complications. Patient left the department in good condition. Fluoroscopy time 0.2 minutes. IMPRESSION: SUCCESSFUL RIGHT HIP JOINT STEROID INJECTION. Electronically signed by: Marcus Kearns M.D Susy BRUCE [employer] FLUOROSCOPY DALLIN CASEY Final Result documented in this encounter Visit Diagnoses Diagnosis Primary osteoarthritis of right hip documented in this encounter Administered Medications Inactive Administered Medications - up to 3 most recent administrations Medication Order MAR Action Action Date Dose Rate Site iohexol (OMNIPAQUE) 240 mg iodine/mL injection solution 10 mL 10 mL, intra-articular, Once in imaging, contrast, Starting on Mon04/08/19 at 1245, For 1 dose Given 04/08/2019 1:22 PM CDT 1 mL lidocaine PF (XYLOCAINE) 10 mg/mL (1 %) preservative free injection 300 mg 300 mg (30 mL), subcutaneous, Once, On Mon04/08/19 at 1330, For 1 dose Given 04/08/2019 1:23 PM CDT 8 mL R ight Groin methylPREDNISolone acetate (DEPO-medrol) injection 80 mg 80 mg, intra-articular, Once, On Mon04/08/19 at 1330, For 1 dose Given 04/08/2019 1:22 PM CDT 80 mg documented in this encounter Care Teams Box Fabricator Relationship Specialty Start Date End Date Pepper Morgan MD PCP - General 09/16/16 Hank Garibay MD [address] [facility] [address] [place] [address] Surgeon Orthopedic Surgery 03/27/17 Jacky Murry MD [address] [facility] [address] [place] [address] Ophthalmology 03/27/17 documented as of this encounter
--- OUTSIDE RECORDS SUMMARY | 2024-06-18 19:02 | XMS_ITS | Encounter Summary ---
Author Organization [facility] Address [address] [address] Care Team Providers Care Manager Security Name Role Phone Pepper Morgan MD Primary Care Provider [phone] Hank Garibay MD Unavailable [phone] Jacky Murry MD Unavailable [phone] Puma Mckenzie MD Unavailable [phone] Reason for Referral * Diagnostic Imaging (Routine) - Closed Specialty Diagnoses / Procedures Referred By Contac t Referred To Contact Diagnoses SOB (shortness of breath) Edema, unspecified type Procedures CT Chest PE W Contrast Tristin Morgan MD Phone: tel: fax: [facility] [address] [address] Phone: tel: fax: Referral ID Status Reason Start Date Expiration Date Visits Re quested Visits Authorized [id number] Closed 07/25/2019 02/02/2021 1 1 CLERKS SUPERVISOR Reason for Visit * Reason Onset Date Comments Call Report BLE Ultrasound 07/25/2019 Encounter Details Date Type Department Care Team (Late st Contact Info) Description 07/25/2019 Telephone [facility] [address] [place] [address] Pepper Morgan MD [address] [place] [address] Call Report BLE Ultrasound Social History Tobacco Use Types Packs/Day Years [...] on file Legal Sex Female 4:33 AM DESK CLERKS SUPERVISOR Gender Identity Not on file Sexual Orientation Not on file Occupation Industry Job Start Date Job End Date retired Not on file Not on file Not on file documented as of this encounter Miscellaneous Notes * Telephone Encounter - Milana Fuentes RN - 07/26/2019 8:40 AM CST Pt called about taking diuretic. She started her first pill this morning and has elevated her legs all night. Pt says she has not seen much difference yet. Made sure she knew about the negative CT PE. Pt is not running a fever. Advised the pt to call back if it does not start getting better after a few doses. Pt verbalized understanding. CLERKS SUPERVISOR * Telephone Encounter - Tristin Morgan MD - 07/25/2019 9:50 PM CST Notified patient that CT angiogram of the chest is negative for PE. Patient just got the diuretic and will start taking it tomorrow. Her legs are a little red, probably from the edema. Please check on her tomorrow to see how she is doing, make sure she is not running a fever. CLERKS SUPERVISOR * Telephone Encounter - Althea Jacob MA - 07/25/2019 4:07 PM CST [facility] unable to complete CT due to no radiologist being in to read results after 4:20 pm. Contacted [facility] and spoke with Katarzyna, they are able to complete testing. [facility] and call to [phone]. Patient informed to go straight to [email or web address] for testing. Patient voiced understanding and left office. CLERKS SUPERVISOR * Telephone Encounter - Charity Pinedo LPN - 07/25/2019 3:54 PM DESK CLERKS SUPERVISOR Katlyn in Radiology called stating pt downstairs and just had BLE Venous Doppler. Katlyn states her reading shows no DVT. It does show edema behind right knee and an enlarged lymph node to right groin area. Katlyn states that pt did just inform her she has also had a lot of SOB over the past few days. Pt had recent hip surgery. [facility] informed of this and gave verbal orders for pt to go to [facility] for STAT Hold & Call CT Angio with results called to his mobile phone if our office is closed when test is completed. Pt informed & she is coming upstairs to speak with science tutor to get these orders sent to [facility]. CLERKS SUPERVISOR documented in this encounter Plan of Treatment Scheduled Orders Name Type Priority Associated Diagnoses Orde r Schedule CT Chest PE W Contrast Imaging Schedule TOM, Read TOM (Appt Today, Awaiting Results) SOB (shortness of breath) Edema, unspecified type Expected: 07/25/2019, Expires: 07/25/2020 documented as of this encounter Visit Diagnoses Diagnosis SOB (shortness of breath)- Primary Shortness of breath Edema, unspecified type documented in this encounter Care Teams Manager Security Relationship Specialty Start Date End Date Pepper Morgan MD PCP - General 09/16/16 Hank Garibay MD [address] [facility] [address] [place] [address] Surgeon Orthopedic Surgery 03/27/17 Jacky Murry MD [address] [facility] [address] [place] [address] Ophthalmology 03/27/17 Puma Mckenzie MD [address] [facility] [address] [place] [address] Surgeon Orthopedic Surgery 07/11/19 documented as of this encounter
--- OUTSIDE RECORDS SUMMARY | 2024-06-18 19:02 | XMS_ITS | Encounter Summary ---
Author Organization [facility] Address [address] [facility] [address] [place] [address] Care Team Providers Care Air Compressor Mechanic Name Role Phone Pepper Morgan MD Primary Care Provider + [phone] Hank Garibay MD Unavailable [phone] Jacky Murry MD Unavailable [phone] Encounter Details Date Type Department Care Team (Late st Contact Info) Description 05/08/2019 Orders Only [facility] Orthopedics and Sports Medicine [address] [facility] [address], [place] [address] [place] [address] [place] [address] Social History Tobacco Use Types Packs/Day Years Used Date Smoking Tobacco: Former Smokeless Tobacco: Never Alcohol Use Standard Drinks/Week Comments Not Currently 0 (1 standard drink = 0.6 oz pur e alcohol) Comments No Sex and Gender Information Value Date Recorded Sex Assigned at Not on file Legal Sex Female 4:33 AM PROGRAM COORDINATOR EXECUTIVE EDUCATION Gender Identity Not on file Sexual Orientation Not on file Occupation Industry Job Start Date Job End Date retired Not on file Not on file Not on file documented as of this encounter Ordered Prescriptions Prescription Sig Dispense Quantity Refills Last Filled Start Date End Date naproxen (NAPROSYN) 500 mg tablet Take 1 tablet (500 mg total) by mouth 2 (two) times a day with meals 60 tablet 2 05/08/2019 05/14/2019 documented in this encounter Progress Notes * Kathie Castillo PA - 05/08/2019 1:01 PM CST Patient had tolerated naproxen in the past without issue. RAM COORDINATOR EXECUTIVE EDUCATION documented in this encounter Miscellaneous Notes * Addendum Note - Kathie Castillo PA - 05/08/2019 1:01 PM CSTAddended by: KATHIE CASTILLO on: 05/08/2019 01:47 PM Modules accepted: Orders RAM COORDINATOR EXECUTIVE EDUCATION documented in this encounter Plan of Treatment Not on file documented as of this encounter Visit Diagnoses Not on filedocumented in this encounter Care Teams Air Compressor Mechanic Relationship Specialty Start Date End Date Pepper Morgan MD PCP - General 09/16/16 Hank Garibay MD [address] [place] [address] [address] [place] [address] Surgeon Orthopedic Surgery 03/27/17 Jacky Murry MD [address] [place] [address] [address] [place] [address] Ophthalmology 03/27/17 documented as of this encounter
--- OUTSIDE RECORDS SUMMARY | 2024-06-18 19:02 | XMS_ITS | Encounter Summary ---
Author Organization [facility] Address [address] [facility] [address] [place] [address] Care Team Providers Care Spa Assistant Manager Name Role Phone Pepper Morgan MD Primary Care Provider + [phone] Hank Garibay MD Unavailable [phone] Jacky Murry MD Unavailable [phone] Puma Mckenzie MD Unavailable [phone] Encounter Details Date Type Department Care Team (Late st Contact Info) Description 07/23/2019 Telephone [facility] Orthopedics and Sports Medicine [address] [place] [address] [address] [address] Mckenzie Collins MA Social History [...] on file Legal Sex Female 4:33 AM KINDERGARTNERS HELPER Gender Identity Not on file Sexual Orientation Not on file Occupation Industry Job Start Date Job End Date retired Not on file Not on file Not on file documented as of this encounter Miscellaneous Notes * Telephone Encounter - Mckenzie Collins MA - 07/23/2019 4:03 PM CST Saima with [facility]. Called to inform patient has bilateral lower extremity edema, 2-3+, from hips down. She cannot sit with legs elevated, this hurts her back. She wanted to make sure this was known and could be address at her appointment tomorrow. ERGARTNERS HELPER documented in this encounter Plan of Treatment Not on file documented as of this encounter Visit Diagnoses Not on filedocumented in this encounter Care Teams Spa Assistant Manager Relationship Specialty Start Date End Date Pepper Morgan MD PCP - General 09/16/16 Hank Garibay MD [address] [facility] [address] [place] [address] Surgeon Orthopedic Surgery 03/27/17 Jacky Murry MD [address] [facility] [address] [place] [address] Ophthalmology 03/27/17 Puma Mckenzie MD [address] [facility] [address] [place] [address] Surgeon Orthopedic Surgery 07/11/19 documented as of this encounter
--- OUTSIDE RECORDS SUMMARY | 2024-06-18 19:02 | XMS_ITS | Encounter Summary ---
Author Organization [facility] Care Team Providers Care Sample Checker Name Role Phone Pepper Morgan MD Primary Care Provider + [phone] Hank Garibay MD Unavailable [phone] Jacky Murry MD Unavailable [phone] Puma Mckenzie MD Unavailable [phone] Encounter Details Date Type Department Care Team [...] on file Legal Sex Female 4:33 AM MODEL MAKER Gender Identity Not on file Sexual Orientation Not on file Occupation Industry Job Start Date Job End Date retired Not on file Not on file Not on file documented as of this encounter Plan of Treatment Not on file documented as of this encounter Visit Diagnoses Not on filedocumented in this encounter Care Teams Sample Checker Relationship Specialty Start Date End Date Pepper Morgan MD PCP - General 3/31/17 Hank Garibay MD [address] [facility] [address] [place] [address] Surgeon Orthopedic Surgery 03/27/17 Jacky Murry MD [address] [facility] [address] [place] [address] Ophthalmology 03/27/17 Puma Mckenzie MD [address] [facility] [address] [place] [address] Surgeon Orthopedic Surgery 07/11/19 documented as of this encounter
--- OUTSIDE RECORDS SUMMARY | 2024-06-18 19:02 | XMS_ITS | Encounter Summary ---
Author Organization [facility] Address [address] [place] [address] Care Team Providers Care Vector Control Specialist Name Role Phone Pepper Morgan MD Primary Care Provider + [phone] Hank Garibay MD Unavailable [phone] Jacky Murry MD Unavailable [phone] Puma Mckenzie MD Unavailable [phone] Encounter Details Date Type Department Care Team (Late st Contact Info) Description 07/17/2019 Telephone [facility] Orthopedics and Sports Medicine [address] [place] [address] [address], [place] [address] Mckenzie Collins MA Social History [...] file Legal Sex Female 4:33 AM CHEMICAL WORKER Gender Identity Not on file Sexual Orientation Not on file Occupation Industry Job Start Date Job End Date retired Not on file Not on file Not on file documented as of this encounter Miscellaneous Notes * Telephone Encounter - Hannah Emmanuel PA - 07/17/2019 10:31 AM CHEMICAL WORKER Returned Ms. Benedict's call. All questions answered. She denies tightness, warmth, erythema, and pain with ambulation. Encouraged her to continue ice and elevation. She will contact our office with any further questions or concerns. ICAL WORKER * Telephone Encounter - Pool Espana NP - 07/17/2019 10:[address] Mckenzie patient. ICAL WORKER * Telephone Encounter - Mckenzie Collins MA - 07/17/2019 9:50 AM CST Patient called and would like a phone call. She is having excessive swelling and has some questions. Thank you [phone] ICAL WORKER documented in this encounter Plan of Treatment Not on file documented as of this encounter Visit Diagnoses Not on filedocumented in this encounter Care Teams Vector Control Specialist Relationship Specialty Start Date End Date Pepper Morgan MD PCP - General 09/16/16 Hank Garibay MD [address] [facility] [address] [place] [address] Surgeon Orthopedic Surgery 03/27/17 Jacky Murry MD [address] [facility] [address] [place] [address] Ophthalmology 03/27/17 Puma Mckenzie MD [address] [facility] [address] [place] [address] Surgeon Orthopedic Surgery 07/11/19 documented as of this encounter
--- OUTSIDE RECORDS SUMMARY | 2024-06-18 19:02 | XMS_ITS | Encounter Summary ---
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 Gender Identity Not on file Sexual Orientation Not on file Occupation Industry Job Start Date Job End Date retired Not on file Not on file Not on file documented as of this encounter Plan of Treatment Not on file documented as of this encounter Visit Diagnoses Not on filedocumented in this encounter Care Teams Laboratory Helper Relationship Specialty Start Date End Date Pepper Morgan MD PCP - General 09/16/16 Hank Garibay MD [address] [facility] [address] [place] [address] Surgeon Orthopedic Surgery 03/27/17 Jacky Murry MD [address] [facility] [address] [place] [address] Ophthalmology 03/27/17 documented as of this encounter
--- OUTSIDE RECORDS SUMMARY | 2024-06-18 19:02 | XMS_ITS | Encounter Summary ---
Author Organization [facility] Facility Care Team Providers Care Hat Body Inspector Name Role Phone Pepper Morgan MD Primary Care Provider + [phone] Hank Garibay MD Unavailable [phone] Jacky Murry MD Unavailable [phone] Encounter Details Date Type Department Care Team (Latest Contact Info) Description 05/14/2019 Travel Social History Tobacco Use Types Packs/Day Years Used Date Smoking Tobacco: Former Smokeless Tobacco: Never Alcohol Use Standard Drinks/Week Comments Not Currently 0 (1 standard drink = 0.6 oz pur e alcohol) PHQ-2 Answer Date Recorded PHQ-2 Score 0 05/14/2019 Comments No Sex and Gender Information Value Date Recorded Sex Assigned at Not on file 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 Gender Identity Not on file Sexual Orientation Not on file Occupation Industry Job Start Date Job End Date retired Not on file Not on file Not on file documented as of this encounter Plan of Treatment Not on file documented as of this encounter Visit Diagnoses Not on filedocumented in this encounter Care Teams Hat Body Inspector Relationship Specialty Start Date End Date Pepper Morgan MD PCP - General 09/16/16 Hank Garibay MD [address] [place] [address] [address] [place] [address] Surgeon Orthopedic Surgery 03/27/17 Jacky Murry MD [address] [facility] [address] [place] [address] Ophthalmology 03/27/17 documented as of this encounter
--- OUTSIDE RECORDS SUMMARY | 2024-06-18 19:02 | XMS_ITS | Encounter Summary ---
Author Organization [facility] Address [address] [facility] [address] [place] [address] Care Team Providers Care Athletic Gear Custodian Name Role Phone Pepper Morgan MD Primary Care Provider + [phone] Hank Garibay MD Unavailable [phone] Jacky Murry MD Unavailable [phone] Encounter Details Date Type Department Care Team (Late st Contact Info) Description 06/03/2019 Telephone [facility] [address] [place] [id number] Pepper Morgan MD [address] [place] [address] Social History Tobacco Use Types Packs/Day Years Used Date Smoking Tobacco: Former Smokeless Tobacco: Never Alcohol Use Standard Drinks/Week Comments Not Currently 0 (1 standard drink = 0.6 oz pur e alcohol) PHQ-2 Answer Date Recorded PHQ-2 Score 0 05/14/2019 Comments No Sex and Gender Information Value Date Recorded Sex Assigned at Not on file 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 OYEE COMMUNICATIONS MANAGER * Telephone Encounter - Milana Fuentes RN - 06/03/2019 12:15 PM EMPLOYEE COMMUNICATIONS MANAGER TOADM:Please cancel pain management referral to dr salas Pt is having hip surgery and she does not want to go pain management at this time OYEE COMMUNICATIONS MANAGER * Telephone Encounter - Milana Fuentes RN - 06/03/2019 11:55 AM EMPLOYEE COMMUNICATIONS MANAGER Called and spoke with dr neal office and they stated that the pt should have a folder of paper work Pt was just scheduled today from the office Pt is seeing meghann on June 24 they could fill it out then Spoke with dr neal office and they will call us back Informed them that dr morgan will be out after this monday OYEE COMMUNICATIONS MANAGER * Telephone Encounter - Vickie Araujo - 06/03/2019 11:13 AM CST Patient has surgery scheduled for July 10. She will need us to call Dr Mckenzie and let him know if she is cleared for surgery? Also she cancelled her appt with the pain center because she is better and needs to get this surgery. Cbn: [phone] OYEE COMMUNICATIONS MANAGER documented in this encounter Plan of Treatment Not on file documented as of this encounter Visit Diagnoses Not on filedocumented in this encounter Care Teams Athletic Gear Custodian Relationship Specialty Start Date End Date Pepper Morgan MD PCP - General 09/16/16 Hank Garibay MD [address] [place] [address] [address] [place] [address] Surgeon Orthopedic Surgery 03/27/17 Jacky Murry MD [address] [facility] [address] [place] [address] Ophthalmology 03/27/17 documented as of this encounter
--- OUTSIDE RECORDS SUMMARY | 2024-06-18 19:02 | XMS_ITS | Encounter Summary ---
Author Organization [facility] Facility Care Team Providers Care Paper Bundler Name Role Phone Pepper Morgan MD Primary Care Provider + [phone] Hank Garibay MD Unavailable [phone] Jacky Murry MD Unavailable [phone] Encounter Details Date Type Department Care Team (Latest Contact Info) Description 03/27/2019 Travel Social History Tobacco Use Types Packs/Day Years Used Date Smoking Tobacco: Former Smokeless Tobacco: Never Alcohol Use Standard Drinks/Week Comments Not Currently 0 (1 standard drink = 0.6 oz pur e alcohol) Comments No Sex and Gender Information Value Date Recorded Sex Assigned at Not on file Legal Sex Female 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 Gender Identity Not on file Sexual Orientation Not on file Occupation Industry Job Start Date Job End Date retired Not on file Not on file Not on file documented as of this encounter Plan of Treatment Not on file documented as of this encounter Visit Diagnoses Not on filedocumented in this encounter Care Teams Paper Bundler Relationship Specialty Start Date End Date Pepper Morgan MD PCP - General 09/16/16 Hank Garibay MD [address] [place] [address] [address] [address] Surgeon Orthopedic Surgery 03/27/17 Jacky Murry MD [address] [facility] [address] [place] [address] Ophthalmology 03/27/17 documented as of this encounter
--- OUTSIDE RECORDS SUMMARY | 2024-06-18 19:02 | XMS_ITS | Encounter Summary ---
Author Organization [facility] Address [address] [place] [address] Care Team Providers Care Heading Saw Operator Name Role Phone Pepper Morgan MD Primary Care Provider +- [phone] Hank Garibay MD Unavailable [phone] Jacky Murry MD Unavailable [phone] Reason for Referral * Diagnostic Imaging (Routine) - Closed Specialty Diagnoses / Procedures Referred By Olga uribe Referred To Contact Diagnoses Pre-op testing Procedures XR Chest Pa Lateral 2 Views Puma Mckenzie MD Phone: tel: [address] [phone] Referral ID Status Reason Start Date Expiration Date Visits Re quested Visits Authorized [id number] Closed 06/27/2019 01/05/2021 1 1 ET MAKER Reason for Visit * Diagnostic Imaging (Routine) - Closed Specialty Diagnoses / Procedures Referred By Olga uribe Referred To Contact Diagnoses Pre-op testing Procedures XR Chest Pa Lateral 2 Views Puma Mckenzie MD Phone: tel: [address] [phone] Referral ID Status Reason Start Date Expiration Date Visits Re quested Visits Authorized [id number] Closed 06/27/2019 01/05/2021 1 1 Encounter Details Date Type Department Care Team (Latest Contact Info) Description 07/01/2019 10:00 AM CORSET MAKER - 07/01/2019 11:59 PM CORSET MAKER Hospital Encounter [facility] [address] [place] [address] Puma Mckenzie MD [address] [place] [address] [address] [place] [address] Pre-op testing Discharge Disposition: Discharge to home [...] on file Legal Sex Female 4:33 AM CORSET MAKER Gender Identity Not on file Sexual [...] VIEWS Schedule Routine, Read Routine (OP Routine) 07/01/2019 10:25 AM CORSET MAKER Pre-op testing documented in this encounter Results * XR Chest Pa Lateral 2 Views (07/01/2019 10:25 AM CORSET MAKER) Anatomical Region Laterality Modality Body, Chest N/A Computed Radiogr aphy 07/01/2019 1:18 PM CORSET MAKER Impressions 07/01/2019 1:19 PM CORSET MAKER 1. ??No acute pulmonary findings. 2. ??Cardiomegaly. Electronically signed by: Saud Mendenhall M.D. Narrative 07/01/2019 1:19 PM CORSET MAKER EXAMINATION: XR CHEST PA LATERAL 2 VIEWS. ?? HISTORY: Preoperative evaluation for right hip replacement. COMPARISON: None. FINDINGS: Lungs are clear. ??No pleural effusion or pneumothorax. ??Cardiomegaly is unchanged. Procedure Note Saud Mendenhall MD - 07/01/2019 EXAMINATION: XR CHEST PA LATERAL 2 VIEWS. HISTORY: Preoperative evaluation for right hip replacement. COMPARISON: None. FINDINGS: Lungs are clear. No pleural effusion or pneumothorax. Cardiomegaly is unchanged. IMPRESSION: 1. No acute pulmonary findings. 2. Cardiomegaly. Electronically signed by: Saud Mendenhall M.D. Puma Mckenzie MD IMG XR PROCEDURES Final Result documented in this encounter Visit Diagnoses Diagnosis Pre-op testing Unspecified pre-operative examination documented in this encounter Care Teams Heading Saw Operator Relationship Specialty Start Date End Date Pepper Morgan MD PCP - General 09/16/16 Hank Garibay MD [address] [facility] [address] [facility] [address] [place] [address] Surgeon Orthopedic Surgery 03/27/17 Jacky Murry MD [address] [facility] [address] [place] [address] Ophthalmology 03/27/17 documented as of this encounter
--- OUTSIDE RECORDS SUMMARY | 2024-06-18 19:02 | XMS_ITS | Encounter Summary ---
Author Organization Formerly [facility] Address [address] [place] [address] Care Team Providers Care Suppository Molding Machine Operator Name Role Phone Pepper Morgan MD Primary Care Provider + [phone] Hank Garibay MD Unavailable [phone] Jacky Murry MD Unavailable [phone] Encounter Details Date Type Department Care Team (Late st Contact Info) Description 07/10/2019 10:37 AM POWER BARKER Anesthesia Event [facility] Operating Room [address] [place] [address] [place] [id number] [id number] Anesthesia Record Procedure Summary Procedure Name Responsible Anesthesiologist Anesthesia Start Time Anesthesia Stop Time Right total hip arthroplasty, anterior approach (Right: Hip) Madi Silverio MD 07/10/19 1037 07/10/19 1305 Events Date Time Event Comment 07/10/2019 0840 1036 In Room 1037 An Start 1037 An Start Data 1045 Spinal Placed 1046 Quick Note O2 at 6 liters FM 1049 Anesthesia Ready 1055 An Data Art 1120 IV Placed 20g right hand 1154 Proc Start 1154 Incision Start 1250 Proc Fin 1257 Out of Room 1305 Handoff to RN I completed my handoff [...] disposition at the time of handoff: PACU 1305 An Stop 1305 Release from care 1305 an stop data Meds Name Total bupivacaine 0.5 % PF intrathecal 3 mL propofol 726.17 mg phenylephrine 400 mcg lidocaine 2 % PF 100 mg tranexamic acid (CYKLOKAPRON) 1,350 mg i n sodium chloride 0.9% 100 mL 1,350 mg ceFAZolin (ANCEF) 1 gram/10 mL in steril e water (premix) 2,000 mg 2,000 mg Lactated Ringer's (LR) infusion 1,000 mL * Agents Name O2 * Blood No blood administrations on file. Lines, Drains, and Airways Type Details Placement Removal Peripheral IV Placement Date: 07/10/19; Placement Time: 0815; Catheter Size: 20 G; Orientation: Right; Location: Hand; Insertion Attempts: 1; Removal Date: 07/10/19; Removal Time: 1700; Removal Reason: Site change 07/10/19 0815 by Serina Rodriguez RN 07/10/19 1700 by Cora Bernal, XU RETIRED Surgical Site 07/10/19; 1135; Ri ght; Hip/trochanter; 11/03/21; Removal date unknown/not present on admission 07/10/19 1135 by Palma Rueda RN 11/03/21 0000 by Raquel Allen PT Peripheral IV Placement Date: 07/10/19; Placement Time: 1230; Change Due: 07/14/19; Catheter Size: 20 G; Orientation: Posterior, Right; Location: Hand; Site Prep: Chlorhexidine; Technique: Anatomical landmarks; Inserted by: kike Escobedo CRNA; Insertion Attempts: 1; Patient Tolerance: Tolerated well; Removal Date: 07/12/19; Removal Time: 16407/10/19 1230 by Tosha Henry RN 07/12/19 1642 by Cora Bernal, XU documented in this encounter Social History Tobacco [...] on file Legal Sex Female 4:33 AM POWER BARKER Gender Identity Not on file Sexual Orientation Not on file Occupation Industry Job Start Date Job End Date retired Not on file Not on file Not on file documented as of this encounter OR Notes * Anesthesia Postprocedure Evaluation - Madi Silverio MD - 07/10/2019 1:39 PM CST Patient: Tess Benedict Procedure Summary Date: 07/10/19 Room / Location: [facility] OR [address] [place] [address] OPERATING ROOM Anesthesia Start: 1037 Anesthesia Stop: 1305 Procedure: Right total hip arthroplasty, anterior approach (Right Hip) Diagnosis: Primary osteoarthritis of right hip (Primary osteoarthritis of right hip [M16.11]) Provider: Puma Mckenzie MD Responsible Provider: Madi Silverio MD Anesthesia Type: general/TIVA, spinal ASA Status: 3 Anesthesia Type: general/TIVA, spinal Last vitals BP 143/91 (BP Location: Right arm, Patient Position: Lying) Pulse 58 Temp (!) 35.9 ??C (96.7 ??F) (Temporal) Resp 20 SpO2 99% Anesthesia Post Evaluation Patient location during evaluation: PACU Patient participation: complete - patient participated Level of consciousness: fully awake Pain management: satisfactory to patient Airway patency: adequate Anesthetic complications: no Cardiovascular status: acceptable Respiratory status: acceptable Hydration status: acceptable Pt is: normothermic Nausea/Vomiting status: none R BARKER * Anesthesia Procedure Notes - Kike Clement CRNA - 07/10/2019 11:32 AM POWER BARKER Associated Order(s): Spinal Block Spinal Block Patient location: OR Reason for block: primary anesthetic Staff: Supervising anesthesiologist: Madi Silverio MD Placed by: JOURNEYMAN WIREMAN:Kike Clement CRNA Procedure prep: Preprocedure checklist: patient identified, procedure contraindications assessed, site marked, procedure consent, surgical consent, IV checked, risks, benefits and alternatives discussed, monitors and equipment checked and timeout performed Patient position: sitting Procedure performed while patient: awake Monitoring: oximetry and blood pressure Prep solution: chlorhexadine/alcohol PPE: provider hat/mask, sterile gloves and sterile drape Skin infiltrated with lidocaine 1%: yes Spinal: Approach: midline Location: L3-4 Spinal injection: CSF demonstrated Number of attempts: 1 Spinal Needle: Needle type: Selena Needle gauge: 25 G Needle length: 5 cm Assessment: Events: patient tolerated procedure well with no complications R BARKER * Anesthesia Preprocedure Evaluation - Hugh Lackey MD - 07/10/2019 8:28 AM CST Images from the original note were not included. Anesthesia Evaluation Tess Benedict is a 83 y.o. female Procedure(s): Right total hip arthroplasty, anterior approach Depuy Actis, omnitrac, midas joe, aquamantys and 1 liter beta rinse Pre-Op Diagnosis Codes: * Primary osteoarthritis of right hip [M16.11] HISTORY Past Medical History Information obtained from: patient and chart. Neurological Neuro/Psych system: negative Cardiovascular + Hypertension Respiratory Respiratory system: negative Hepatic / Heme Hepatic/Heme system: negative Gastrointestinal + GERD - on daily therapy. Renal / Renal/ system: negative Musculoskeletal/Pain + Osteoarthritis Endocrine / Other + Obesity (BMI >30) + Cancer history- skin cancer only. Patient Active Problem List Diagnosis ??? Transient insomnia ??? Hereditary essential tremor ??? Chronic GERD ??? Benign hypertension ??? Restless legs syndrome ??? History of melanoma ??? Bariatric surgery status ??? Insomnia, persistent ??? Chronic pain disorder ??? Knee joint replacement status, bilateral ??? Obesity (BMI 30-39.9) ??? History of basal cell carcinoma (BCC) ??? History of malignant melanoma ??? Dizziness ??? Primary osteoarthritis of right hip ??? History of arthroplasty of right knee Past Medical History: Diagnosis Date ??? Arthritis [...] Breast biopsy ??? CHOLECYSTECTOMY 1991 Cholecystectomy ??? FLUORO GUIDED INJECTION HIP RIGHT Right 04/08/2019 ??? HAND SURGERY 1976 hand surgery ??? HERNIA REPAIR Hernia repair ??? KNEE ARTHROSCOPY 2003 Arthroscopy knee ??? KNEE ARTHROSCOPY Arthroscopy knee ??? OTHER SURGICAL HISTORY 1991 strangulated hernia: hernia repair ??? OTHER SURGICAL HISTORY 2002 Cancer, basal Cell: resection with skin graft ??? REPLACEMENT TOTAL KNEE Left 02/07/2017 Dr. Meier OB History No obstetric history on file. Allergies Allergen Reactions ??? Celecoxib Anaphylaxis ??? Sulfa (Sulfonamide Antibiotics) Anaphylaxis ??? Amlodipine Swelling ??? Lisinopril Swelling ??? Trazodone Swelling Tongue ??? Scopolamine Mental status changes Med List Status: Nurse Complete Set By: Sari Dougherty RN at 07/01/2019 8:59 AM Taking? Last Dose Start Date End Date Provider cholecalciferol (VITAMIN D3) 2,000 unit tablet -- -- Historical Provider, felodipine (PLENDIL) 5 mg 24 hr tablet 05/14/19 -- Pepper Morgan MD Take 1 tablet (5 mg total) by mouth daily naproxen (ALEVE) 220 mg tablet -- -- Historical Provider, pantoprazole DR (PROTONIX) 20 mg EC tablet 05/14/19 -- Pepper Morgan MD Take 1 tablet (20 mg total) by mouth daily With the largest meal pramipexole (MIRAPEX) 0.125 mg tablet 05/14/19 -- Pepper Morgan MD Take 1-2 tablets by mouth every day propranolol (INDERAL) 20 mg tablet 05/14/19 -- Pepper Morgan MD Take 1 tablet (20 mg total) by mouth 2 (two) times a day spironolactone (ALDACTONE) 25 mg tablet 05/14/19 -- Pepper Morgan MD Take 1 tablet (25 mg total) by mouth daily Notes: New blood pressure medicine April 2019, if well tolerated she may have 90 days at next refill Current Facility-Administered Medications: ??? bacitracin 100,000 Units, polymyxin B 1,000,000 Units in sodium chloride 0.9% 1,000 mL irrigation solution, , irrigation, Once ??? bacitracin 100,000 Units, polymyxin B 1,000,000 Units in sodium chloride 0.9% 1,000 mL irrigation solution, , irrigation, Once ??? bupivacaine (MARCAINE) 50 mg, morphine 10 mg, EPINEPHrine 0.3 mg in sodium chloride 0.9% 20 mL topical solution, , topical, Once ??? ceFAZolin (ANCEF) 1 gram/10 mL in sterile water (premix) 2,000 mg, 2,000 mg, intravenous, Once ??? Lactated Ringer's (LR) infusion, 30 mL/hr, intravenous, Continuous ??? oxyCODONE ER (OxyCONTIN) extended release tablet 20 mg, 20 mg, oral, Once ??? sodium chloride 0.9% flush 0.5-20 mL, 0.5-20 mL, intra-catheter, PRN ??? tranexamic acid (CYKLOKAPRON) 1,350 mg in sodium chloride 0.9% 100 mL, 15 mg/kg, intravenous, Once Social History Tobacco Use Smoking Status Former Smoker ??? Last attempt to quit: 1991 ??? Years since quittin.0 Smokeless Tobacco Never Used Substance and Sexual Activity Alcohol Use Not Currently Substance and Sexual Activity Drug Use Never Family History Problem Relation Age of Onset ??? Cancer Other Family history of Cancer, unknown; ??? Arthritis Other Family history of Arthritis; ??? Abdominal Aortic Aneurysm Father ??? COPD Father There were no vitals filed for this visit. PT: 07/01/2019: 12.1 sec INR: 07/01/2019: 1.1 APTT: 07/01/2019: 31 sec Hgb A1C: 07/01/2019: 5.1 % CBC RBC: 07/01/2019: 4.97 M/cumm RDW: No results found for requested labs within last 720 hours. MCHC: 07/01/2019: 31.7 g/dL* MCH: 07/01/2019: 27.6 pg MCV: 07/01/2019: 86.9 fL Hct: 07/01/2019: 43.2 % Hgb: 07/01/2019: 13.7 g/dL WBC: 07/01/2019: 6.6 K/cumm MPV: 07/01/2019: 9.4 fL Platelets: 07/01/2019: 285 K/cumm RDW CV: 07/01/2019: 13.4 % RDW Sd: 07/01/2019: 42.5 fL BMP Glucose: 07/01/2019: 87 mg/dL Calcium: 07/01/2019: 9.1 mg/dL Sodium: 07/01/2019: 136 mmol/L Potassium: 07/01/2019: 4.2 mmol/L CO2: 07/01/2019: 28 mmol/L Chloride: 07/01/2019: 99 mmol/L BUN: 07/01/2019: 18 mg/dL Creatinine: 07/01/2019: 0.60 mg/dL STOP-Bang Total Score: 6 DOS Physical Exam Medical history, medications, and allergies reviewed. Attestation: I endorse the findings of the anesthesia pre-evaluation assessment dated: 07/10/2019. Airway Exam: Mallampati: II Cervical ROM: FROM TM distance: >4 Jaw ROM: full Cardiovascular Exam: Rate: regular Rhythm: regular Pulmonary Exam: LCTA, bilat Dental Exam: Upper dentures and lower dentures Current state: Patient's current state is cooperative and interactive. Anesthesia Plan ASA 3 My patient is approved for the Anesthesia Controlled Medication protocol when under care of a JOURNEYMAN WIREMAN Planned anesthesia: General/TIVA and spinal Comments: no narcotics if possible - severe PONV - no scopolamine Induction: Induction: intravenous. Postoperative Plan: No plan for postoperative opioid use. No postoperative mechanical ventilation intended. Patient's planned disposition post procedure is Floor. Informed Consent: Discussed plan with attending and JOURNEYMAN WIREMAN. Anesthesia plan and risks discussed with patient. Consent and Attending signature: I and/or my designee have discussed the anesthesia plan, benefits, possible alternatives, parental presence at time of induction (if indicated), and clinically relevant risks that may include dental injury, unintentional awareness, and/or other complications. The patient and/or parent/legal guardian understand, and agree to proceed. All questions answered. R BARKER documented in this encounter Plan of Treatment Not on file documented as of this encounter Procedures Procedure Name Priority Date/Time Associated Diagnosis Comments ANESTHESIA SPINAL BLOCK Routine 07/10/2019 11:32 AM POWER BARKER documented in this encounter Results * Spinal Block (07/10/2019 11:32 AM POWER BARKER) Kike Pulliam CRNA - 07/10/2019 11:32 AM POWER BARKER Kike Clement CRNA ? 07/10/2019 11:32 AM Spinal Block Patient location: OR Reason for block: primary anesthetic Staff: Supervising anesthesiologist: Madi Silverio MD Placed by: JOURNEYMAN WIREMAN:Kike Clement CRNA Procedure prep: Preprocedure checklist: patient identified, procedure contraindications assessed, site marked, procedure consent, surgical consent, IV checked, risks, benefits and alternatives discussed, monitors and equipment checked and timeout performed Patient position: sitting Procedure performed while patient: awake Monitoring: oximetry and blood pressure Prep solution: chlorhexadine/alcohol PPE: provider hat/mask, sterile gloves and sterile drape Skin infiltrated with lidocaine 1%: yes Spinal: Approach: midline Location: L3-4 Spinal injection: CSF demonstrated Number of attempts: 1 Spinal Needle: Needle type: Selena Needle gauge: 25 G Needle length: 5 cm Assessment: Events: patient tolerated procedure well with no complications us Madi Silverio MD ANESTHESIA ORDERABLES Fi nal Result documented in this encounter Visit Diagnoses Not on filedocumented in this encounter Administered Medications Inactive Administered Medications - up to 3 most recent administrations Medication Order MAR Action Action Date Dose Rate Site bupivacaine (MARCAINE) 0.5 % (5 mg/mL) preservative free injection other, As needed, Starting on Mon07/10/19 at 1045, Anesthesia Intra-op Given 07/10/2019 10:45 AM POWER BARKER 3 mL ceFAZolin (ANCEF) 1 gram/10 mL in sterile water (premix) 2,000 mg 2,000 mg, intravenous, at 400 mL/hr, Administer over 3 Minutes, Once, On Mon07/10/19 at 0845, For 1 dose, Pre-Op, Administer within 60 minutes of incision. Use Vancomycin per pharmacy protocol if pt allergic to Ancef., Indications: Prophylaxis, SurgicalIndications:Prophylaxis , Surgical Given 07/10/2019 11:00 AM POWER BARKER 2,000 mg Lactated Ringer's (LR) infusion 30 mL/hr, intravenous, Continuous, Starting on Mon07/10/19 at 0845, Pre-Op New Bag 07/10/2019 11:59 AM POWER BARKER Rate/Dose Verify 07/10/2019 10:37 AM POWER BARKER New Bag 07/10/2019 10:34 AM POWER BARKER 30 mL/hr 30 mL/hr lidocaine (XYLOCAINE) 20 mg/mL (2 %) preservative free injection As needed, Starting on Mon07/10/19 at 1050, Anesthesia Intra-op Given 07/10/2019 10:50 AM POWER BARKER 100 mg phenylephrine (ANA-SYNEPHRINE) injection intravenous, As needed, Starting on Mon07/10/19 at 1055, Anesthesia Intra-op Given 07/10/2019 12:12 PM POWER BARKER 100 mc g Given 07/10/2019 11:23 AM POWER BARKER 100 mcg Given 07/10/2019 11:03 AM POWER BARKER 100 mcg propofol (DIPRIVAN) IV intravenous, Continuous PRN, Starting on Mon07/10/19 at 1050, Anesthesia Intra-op Rate/Dose Change 07/10/2019 11:59 AM POWER BARKER 75 mcg/kg/min 44.01 mL/hr New Bag 07/10/2019 10:50 AM POWER BARKER 50 mcg/kg/min 29.34 mL/ hr tranexamic acid (CYKLOKAPRON) 1,350 mg in sodium chloride 0.9% 100 mL 1,350 mg (rounded from 1,327.5 mg = 15 mg/kg ? 88.5 kg), intravenous, at 454 mL/hr, Administer over 15 Minutes, Once, On Mon07/10/19 at 0845, For 1 dose, Intra-Op, Administer at time of incision, Indications: Prophylaxis, SurgicalIndications:Prophylaxis, Surgical New Bag 07/10/2019 11:02 AM POWER BARKER 1,350 mg documented in this encounter Care Teams Suppository Molding Machine Operator Relationship Specialty Start Date End Date Pepper Morgan MD PCP - General 09/16/16 Hank Garibay MD [address] [facility] [address] [place] [address] Surgeon Orthopedic Surgery 03/27/17 Jacky Murry MD [address] [facility] [address] [place] [address] Ophthalmology 03/27/17 documented as of this encounter
--- OUTSIDE RECORDS SUMMARY | 2024-06-18 19:02 | XMS_ITS | Encounter Summary ---
Author Organization [facility] Address [address] [place] [address] Care Team Providers Care Rolloff Driver Name Role Phone Pepper Morgan MD Primary Care Provider + [phone] Hank Garibay MD Unavailable [phone] Jacky Murry MD Unavailable [phone] Puma Mckenzie MD Unavailable [phone] Encounter Details Date Type Department Care Team (Late st Contact Info) Description 07/31/2019 Telephone [facility] Orthopedics and Sports Medicine [address] [facility] [address] [place] [address] Puma Mckenzie MD [address] [place] [address] [address] [place] [address] Social History Tobacco Use Types [...] on file Legal Sex Female 4:33 AM LITHOGRAPH PRESS OPERATOR Gender Identity Not on file Sexual Orientation Not on file Occupation Industry Job Start Date Job End Date retired Not on file Not on file Not on file documented as of this encounter Miscellaneous Notes * Telephone Encounter - Susy Hummel PA - 07/31/2019 12:36 PM LITHOGRAPH PRESS OPERATOR I called and discussed matters with Ms. Benedict. She is taking meloxicam, so I informed her that she should only take that or the Aleve, not both. She plans to switch the leave from the meloxicam ifshe feels the meloxicam is not providing her much relief. OGRAPH PRESS OPERATOR * Telephone Encounter - Latasha Oden - 07/31/2019 11:32 AM CST Patient called, she has 2 pills left of Hydrocodone, she states she wants to know if she can take Aleve with this as well to help with pain? She did not know if she can take the two combined. She states she would rather just take Aleve to help with pain. Please advise. Her call back number is [phone]. OGRAPH PRESS OPERATOR documented in this encounter Plan of Treatment Not on file documented as of this encounter Visit Diagnoses Not on filedocumented in this encounter Care Teams Rolloff Driver Relationship Specialty Start Date End Date Pepper Morgan MD PCP - General 09/16/16 Hank Garibay MD [address] [facility] [address] [facility] [address] [place] [address] Surgeon Orthopedic Surgery 03/27/17 Jacky Murry MD [address] [facility] [address] [place] [address] Ophthalmology 03/27/17 Puma Mckenzie MD [address] [facility] [address] [place] [address] Surgeon Orthopedic Surgery 07/11/19 documented as of this encounter
--- OUTSIDE RECORDS SUMMARY | 2024-06-18 19:02 | XMS_ITS | Encounter Summary ---
Author Organization [facility] Address [address] [facility] [address] [place] [address] Care Team Providers Care Computer Support Specialist Name Role Phone Pepper Morgan MD Primary Care Provider + [phone] Hank Garibay MD Unavailable [phone] Jacky Murry MD Unavailable [phone] Encounter Details Date Type Department Care Team (Late st Contact Info) Description 05/20/2019 Telephone [facility] [address] [place] [id number] Pepper Morgan MD [address] [place] [address] Social History Tobacco Use Types Packs/Day Years Used Date Smoking Tobacco: Former Smokeless Tobacco: Never Alcohol Use Standard Drinks/Week Comments Not Currently 0 (1 standard drink = 0.6 oz pur e alcohol) PHQ-2 Answer Date Recorded PHQ-2 Score 0 05/14/2019 Comments No Sex and Gender Information Value Date Recorded Sex Assigned at Not on file Legal Sex Female 4:33 AM SKI LIFT OPERATOR Gender Identity Not on file Sexual Orientation Not on file Occupation Industry Job Start Date Job End Date retired Not on file Not on file Not on file documented as of this encounter Miscellaneous Notes * Telephone Encounter - Natasha Joshua RN - 05/20/2019 1:58 PM SKI LIFT OPERATOR Called left message for pt to return call. Called and spoke to pt. Informed pt of JUAN CARLOS's message: - stop Meloxicam and Tizanidine - Trial aleve - max 2 tablets BID - and call back on Monday with a report. Pt agreeable and will call back on Monday. Discussed pain management referral. Pt said she would like to trial aleve and see how it works before she does any type of referral. Pt verbalized understanding of the conversation. LIFT OPERATOR * Telephone Encounter - Pepper Morgan MD - 05/20/2019 1:37 PM SKI LIFT OPERATOR STOP THE MELOXICAM AND THE TIZANIDINE Trial back on Aleve maximum doses 2 tablets twice daily for this week only--call with report on thereturn to medicine by Monday, I doubt this will work, I think she has a problem both with her back and with her hip and that she will require pain management evaluation. I would recommend referral to Pain Management to start a trial of epidural injections before she agrees to hip replacement LIFT OPERATOR * Telephone Encounter - Anuja Rome RN - 05/20/2019 9:15 AM SKI LIFT OPERATOR Called and spoke to pt. States, Dr RANGEL prescribed meloxicam and tizanidine for my right hip and back pain last week and they aren't helping. States, she told me to stop taking Aleve but I am tempted to start taking it again. Pt rates pain 9 in the mornings. Pain is constant and I can't sleep. States, very difficult to get up out of a chair and then sit down in a chair. Pt requesting go back on Aleve or something stronger for pain. States, has bone on bone on hip and had a steroid injection by Dr Gonzalez but the effectiveness has worn off. To Dr RANGEL: Please advise/ty LIFT OPERATOR * Telephone Encounter - Vickie Araujo - 05/20/2019 8:37 AM CST Patient was in last week and kms changed her medication. She added some for her back and hip. She is really in a lot of pain. Kms told patient not to take aleve. She needs something for pain. She wasgiven meloxicam and some other things She really needs pain medication. Cbn: [phone] nash pearson LIFT OPERATOR documented in this encounter Plan of Treatment Not on file documented as of this encounter Visit Diagnoses Not on filedocumented in this encounter Care Teams Computer Support Specialist Relationship Specialty Start Date End Date Pepper Morgan MD PCP - General 09/16/16 Hank Garibay MD [address] [place] [address] [address] [place] [address] Surgeon Orthopedic Surgery 03/27/17 Jacky Murry MD [address] [place] [address] [address] [place] [address] Ophthalmology 03/27/17 documented as of this encounter
--- OUTSIDE RECORDS SUMMARY | 2024-06-18 19:02 | XMS_ITS | Encounter Summary ---
Author Organization [facility] Care Team Providers Care Warehouse Attendant Name Role Phone Pepper Morgan MD Primary Care Provider + [phone] Hank Garibay MD Unavailable [phone] Jacky Murry MD Unavailable [phone] Encounter Details Date Type Department Care Team (Latest Contact Info) Description 07/10/2019 Travel Social History Tobacco Use Types Packs/Day [...] on file Legal Sex Female 4:33 AM MECHANICAL EQUIPMENT SALES ENGINEER Gender Identity Not on file Sexual Orientation Not on file Occupation Industry Job Start Date Job End Date retired Not on file Not on file Not on file documented as of this encounter Plan of Treatment Not on file documented as of this encounter Visit Diagnoses Not on filedocumented in this encounter Care Teams Warehouse Attendant Relationship Specialty Start Date End Date Pepper Morgan MD PCP - General 09/16/16 Hank Garibay MD [address] [facility] [address] [place] [address] Surgeon Orthopedic Surgery 03/27/17 Jacky Murry MD [address] [facility] [address] [address] [place] [address] Ophthalmology 03/27/17 documented as of this encounter
--- OUTSIDE RECORDS SUMMARY | 2024-06-18 19:02 | XMS_ITS | Encounter Summary ---
Author Organization [facility] Facility Care Team Providers Care Manager Fiber Name Role Phone Pepper Morgan MD Primary Care Provider + [phone] Hank Garibay MD Unavailable [phone] Jacky Murry MD Unavailable [phone] Encounter Details Date Type Department Care Team (Latest Contact Info) Description 06/27/2019 Travel Social History Tobacco Use Types Packs/Day Years Used Date Smoking Tobacco: Former Smokeless Tobacco: Never Alcohol Use Standard Drinks/Week Comments Not Currently 0 (1 standard drink = 0.6 oz pur e alcohol) PHQ-2 Answer Date Recorded PHQ-2 Score 0 05/14/2019 Comments No Sex and Gender Information Value Date Recorded Sex Assigned at Not on file 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 Gender Identity Not on file Sexual Orientation Not on file Occupation Industry Job Start Date Job End Date retired Not on file Not on file Not on file documented as of this encounter Plan of Treatment Not on file documented as of this encounter Visit Diagnoses Not on filedocumented in this encounter Care Teams Manager Fiber Relationship Specialty Start Date End Date Peppre Morgan MD PCP - General 09/16/16 Hank Garibay MD [address] [place] [address] [address] [place] [address] Surgeon Orthopedic Surgery 03/27/17 Jacky Murry MD [address] [facility] [address] [place] [address] Ophthalmology 03/27/17 documented as of this encounter
--- OUTSIDE RECORDS SUMMARY | 2024-06-18 19:02 | XMS_ITS | Encounter Summary ---
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 Gender Identity Not on file Sexual Orientation Not on file Occupation Industry Job Start Date Job End Date retired Not on file Not on file Not on file documented as of this encounter Plan of Treatment Not on file documented as of this encounter Visit Diagnoses Not on filedocumented in this encounter Care Teams Stripper Printed Circuit Boards Relationship Specialty Start Date End Date Pepper Morgan MD PCP - General 3/31/17 Hank Garibay MD [address] [facility] [address] [place] [address] Surgeon Orthopedic Surgery 03/27/17 Jacky Murry MD [address] [facility] [address] [place] [address] Ophthalmology 03/27/17 Puma Mckenzie MD [address] [facility] [address] [place] [address] Surgeon Orthopedic Surgery 07/11/19 documented as of this encounter
--- OUTSIDE RECORDS SUMMARY | 2024-06-18 19:02 | XMS_ITS | Encounter Summary ---
Author Organization [facility] Address [address] [facility] [place] [address] Care Team Providers Care Wire Mesh Filter Fabricator Name Role Phone Pepper Morgan MD Primary Care Provider Hank Garibay MD Unavailable [phone] Jacky Murry MD Unavailable [phone] Reason for Visit * Reason Onset Date Comments cleared for surgery 06/27/2019 Encounter Details Date Type Department Care Team (Late st Contact Info) Description 06/27/2019 Documentation [facility] Orthopedics and Sports Medicine [address] [place] [address] [address], [place] [id number] Tasha Cowan MA cleared for surgery Social [...] on file 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 Female 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 Gender Identity Not on file Sexual Orientation Not on file Occupation Industry Job Start Date Job End Date retired Not on file Not on file Not on file documented as of this encounter Progress Notes * Tasha Cowan MA - 06/27/2019 3:52 PM CST Patient is cleared for RTHA on 07/10/[address] Morgan OSIVE MAN documented in this encounter Plan of Treatment Not on file documented as of this encounter Visit Diagnoses Not on filedocumented in this encounter Care Teams Wire Mesh Filter Fabricator Relationship Specialty Start Date End Date Pepper Morgan MD PCP - General 09/16/16 Hank Garibay MD [address] [facility] [address] [place] [address] Surgeon Orthopedic Surgery 03/27/17 Jacky Murry MD [address] [facility] [address] [place] [address] Ophthalmology 03/27/17 documented as of this encounter
--- OUTSIDE RECORDS SUMMARY | 2024-06-18 19:02 | XMS_ITS | Encounter Summary ---
Author Organization [facility] Address [address] [address] Care Team Providers Care Endoscopic Technician Name Role Phone Pepper Pelaez MD Primary Care Provider [phone] Hank Garibay MD Unavailable [phone] Jacky Murry MD Unavailable [phone] Puma Mckenzie MD Unavailable [phone] Reason for Referral * Diagnostic Imaging (Routine) - Closed Specialty Diagnoses / Procedures Referred By Contac t Referred To Contact Diagnoses Bilateral leg edema Procedures US Vein Duplex Lower Extremity Bilateral Complete Pepper Pelaez MD Phone: tel: fax: [facility] Referral ID Status Reason Start Date Expiration Date Visits Re quested Visits Authorized [id number] Closed 07/25/2019 02/02/2021 1 1 E MIXER Encounter Details Date Type Department Care Team (Late st Contact Info) Description 07/24/2019 Telephone [facility] [address] [place] [address] Pepper Pelaez MD [address] [place] [address] Social History Tobacco Use Types Packs/Day Years [...] on file 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 Gender Identity Not on file Sexual Orientation Not on file Occupation Industry Job Start Date Job End Date retired Not on file Not on file Not on file documented as of this encounter Ordered Prescriptions Prescription Sig Dispense Quantity Refills Last Filled Start Date End Date furosemide (LASIX) 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: Bilateral leg edema Take 1 tablet (20 mg total) by mouth daily 10 tablet 07/24/2019 08/12/2019 documented in this encounter Miscellaneous Notes * Addendum Note - Charity Rothman LPN - 07/26/2019 1:16 PM CSTAddended by: CHARITY ROTHMAN on: 07/26/2019 01:16 PM Modules accepted: Orders E MIXER * Telephone Encounter - Charity Rothman LPN - 07/26/2019 1:14 PM SLATE MIXER Pt [phone] states that ECS informed her of the BLE Ultrasound and CT Angio test results last nighton the phone. Pt informed that [facility]CS wants her to do BMP in 1-2 weeks and be seen in clinic for f/u in about 2 weeks. Pt voiced understanding to all & did schedule with our TELEVISION DIRECTOR (ANV) on 08/08/19 @ 10am. Pt will do the BNP after she sees ANV 08/08/19 in case ANV decides she wants further labs. BNP o rder was completed. E MIXER * Addendum Note - Kristin Pelaez MD - 07/26/2019 1:02 PM CSTAddended by: KRISTIN PELAEZ on: 07/26/2019 01:02 PM Modules accepted: Orders E MIXER * Telephone Encounter - Kristin Pelaez MD - 07/26/2019 12:58 PM CST Ultrasound shows the followin. No sonographic evidence of deep or superficial venous thrombosis. ?? 2. Prominent solitary lymph node of the right groin region measuring 2.1 x 3.1 cm. This should be followed on a clinical basis for stability. One month follow- up ultrasound may be considered to document stability and/or decreasing size of this lymph node. ?? 3. Soft tissue edema of the extremity, worse in the right popliteal region. CT angiogram shows the followin. No evidence of pulmonary embolus. ??No airspace infiltrates or effusions. 2. Minimal nodular interstitial prominence in the right upper lobe could be infectious, inflammatory or postinflammatory. 3. Several tiny bilateral pulmonary nodules measuring up to 4 mm. ??Depending on patient's risk factors, these could be followed with repeat CT in 12 months. Creatinine was normal. We will want to check a follow-up BMP in 1-2 weeks to make sure everything remains stable while she is receiving the furosemide. Order pended. Follow-up in the office in about two weeks. E MIXER * Telephone Encounter - Yvette Zapata RN - 07/26/2019 9:33 AM CST Results in chart, no clot, but please advise on the remainder of results so we can call pt. E MIXER * Telephone Encounter - Kristin ePlaez MD - 07/25/2019 9:40 AM CST Noted, thank you. E MIXER * Telephone Encounter - Yvette Zapata RN - 07/25/2019 9:21 AM CST FYI E MIXER * Telephone Encounter - Theresa Rolon - 07/25/2019 9:05 AM CST Pt scheduled for bilateral venous doppler at 3:10 this afternoon. Pt aware and verbalized understanding of appt time. E MIXER * Telephone Encounter - Yvette Zapata RN - 07/25/2019 8:54 AM CST Please arrange doppler for TODAY. Pt expecting a call... E MIXER * Telephone Encounter - Kristin Pelaez MD - 07/24/2019 5:57 PM CST Spoke to the patient. Sent in Lasix 20 mg daily in the morning. I would like her to have a bilateral venous Doppler tomorrow to make sure she does not have blood clots. She says she can be here at 3:00 p.m. please arrange the test. E MIXER * Telephone Encounter - Milana Fuentes RN - 07/24/2019 4:19 PM CST Pt called and states she has BL leg swelling after right hip replacement. Pt elevates her legs at night and ices her leg during the day. She is taking spironolactone. Pt states would like to get this fluid off . To Dr. VINSON: Please advise. E MIXER * Telephone Encounter - Vickie Araujo - 07/24/2019 12:39 PM CST Patient had a hip replacement a couple weeks ago and is having a lot of swelling. Dr Mckenzie told her to call her primary and get a water pill for This. Cbn: [phone] E MIXER documented in this encounter Plan of Treatment Not on file documented as of this encounter Results * US Vein Duplex Lower Extremity Bilateral Complete (07/25/2019 3:35 PM SLATE MIXER) Anatomical Region Laterality Modality Vascular Bilateral Ultrasound Narrative 07/25/2019 3:45 PM SLATE MIXER VENOUS DOPPLER: Real Time high-resolution ultrasonography and Doppler sampling were performed in the deep and superficial venous systems. Examination reveals normal spontaneous blood flow in the major veins. ?? There is not evidence of intraluminal echogenic thrombus material. ??The veins easily compress, and there is good augmentation of the blood flow. ?? The posterior tibial veins and peroneal veins are poorly seen secondary to patient large body habitus. ??Solitary lymph node of the right groin noted measuring 2.1 x 1.0 x 3.1 cm. ??Generalized soft tissue edema noted. ??This is worse in the popliteal region on the right. ?? SUMMARY: 1. No sonographic evidence of deep or superficial venous thrombosis. 2. Prominent solitary lymph node of the right groin region measuring 2.1 x 3.1 cm. ??This should be followed on a clinical basis for stability. ??One month follow-up ultrasound may be considered to document stability and/or decreasing size of this lymph node. ?? 3. Soft tissue edema of the extremity, worse in the right popliteal region. ?? us Pepper Pelaez MD [facility] US PROCEDURES Final Re sult documented in this encounter Visit Diagnoses Diagnosis Bilateral leg edema- Primary Edema Benign hypertension Essential hypertension, benign Bilateral leg edema Edema documented in this encounter Care Teams Endoscopic Technician Relationship Specialty Start Date End Date Pepper Pelaez MD PCP - General 09/16/16 Hank Garibay MD [address] [place] [address] [place] [address] Surgeon Orthopedic Surgery 03/27/17 Jacky Murry MD [address] [facility] [address] [place] [address] Ophthalmology 03/27/17 Puma Mckenzie MD [address] [facility] [address] [place] [address] Surgeon Orthopedic Surgery 07/11/19 documented as of this encounter
--- OUTSIDE RECORDS SUMMARY | 2024-06-18 19:02 | XMS_ITS | Encounter Summary ---
Author Organization [facility] Address [address] [facility] [address] [place] [address] Care Team Providers Care Cath Lab Manager Name Role Phone Pepper Morgan MD Primary Care Provider + [phone] Hank Garibay MD Unavailable [phone] Jacky Murry MD Unavailable [phone] Encounter Details Date Type Department Care Team (Late st Contact Info) Description 05/08/2019 Telephone [facility] Orthopedics and Sports Medicine [address] [facility] [address], [place] [address] Crissy Ayala MA Social History Tobacco Use Types Packs/Day Years Used Date Smoking Tobacco: Former Smokeless Tobacco: Never Alcohol Use Standard Drinks/Week Comments Not Currently 0 (1 standard drink = 0.6 oz pur e alcohol) Comments No Sex and Gender Information Value Date Recorded Sex Assigned at Not on file 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 Gender Identity Not on file Sexual Orientation Not on file Occupation Industry Job Start Date Job End Date retired Not on file Not on file Not on file documented as of this encounter Miscellaneous Notes * Telephone Encounter - Kathie Cox PA - 05/08/2019 1:47 PM ARCH CUSHION PRESS OPERATOR Sent in CUSHION PRESS OPERATOR * Telephone Encounter - Crissy Ayala MA - 05/08/2019 1:27 PM ARCH CUSHION PRESS OPERATOR Patient states that she has no shortness of breath or throat swelling etc with the aleve, she states she will be awaiting the prescription strength aleve and wants to try to this before She makes an appointment to see junaid for possible replacement CUSHION PRESS OPERATOR CUSHION PRESS OPERATOR * Telephone Encounter - Kathie Cox PA - 05/08/2019 1:03 PM ARCH CUSHION PRESS OPERATOR Actually, 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 Per Susy's note, she hasbeen taking Aleve. Can you please call and ask patient if she has had any trouble with SOB, throat swelling, etc with the Aleve? If not, I will send in prescription strength Aleve for her. Thanks. CUSHION PRESS OPERATOR * Telephone Encounter - Kathie Cox PA - 05/08/2019 1:01 PM ARCH CUSHION PRESS OPERATOR I will send in Mobic for her. CUSHION PRESS OPERATOR * Telephone Encounter - Crissy Ayala MA - 05/08/2019 12:55 PM ARCH CUSHION PRESS OPERATOR Patient calling stating she had an inj in her right hip and was seen with Susy in [place] and is still in a lot of pain, shes wanting a stronger antiinflammatory CUSHION PRESS OPERATOR documented in this encounter Plan of Treatment Not on file documented as of this encounter Visit Diagnoses Not on filedocumented in this encounter Care Teams Cath Lab Manager Relationship Specialty Start Date End Date Pepper Morgan MD PCP - General 09/16/16 Hank Garibay MD [address] [place] [address] [address] [place] [address] Surgeon Orthopedic Surgery 03/27/17 Jacky Murry MD [address] [place] [address] [address] [place] [address] Ophthalmology 03/27/17 documented as of this encounter
--- OUTSIDE RECORDS SUMMARY | 2024-06-18 19:02 | XMS_ITS | Encounter Summary ---
Author Organization [facility] Facility Care Team Providers Care Pot Operator Name Role Phone Pepper Morgan MD Primary Care Provider + [phone] Hank Garibay MD Unavailable [phone] Jacky Murry MD Unavailable [phone] Encounter Details Date Type Department Care Team (Latest Contact Info) Description 03/19/2019 Travel Social History Tobacco Use Types Packs/Day Years Used Date Smoking Tobacco: Former Smokeless Tobacco: Never Alcohol Use Standard Drinks/Week Comments Not Currently 0 (1 standard drink = 0.6 oz pur e alcohol) Comments No Sex and Gender Information Value Date Recorded Sex Assigned at Not on file 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 POST Gender Identity Not on file Sexual Orientation Not on file Occupation Industry Job Start Date Job End Date retired Not on file Not on file Not on file documented as of this encounter Plan of Treatment Not on file documented as of this encounter Visit Diagnoses Not on filedocumented in this encounter Care Teams Pot Operator Relationship Specialty Start Date End Date Pepper Morgan MD PCP - General 09/16/16 Hank Garibay MD [address] [place] [address] [address] [address] Surgeon Orthopedic Surgery 03/27/17 Jacky Murry MD [address] [facility] [address] [place] [address] Ophthalmology 03/27/17 documented as of this encounter
--- OUTSIDE RECORDS SUMMARY | 2024-06-18 19:02 | XMS_ITS | Encounter Summary ---
Author Organization [facility] Address [address] [address] Care Team Providers Care School Bus Driver/Custodian Name Role Phone Pepper Morgan MD Primary Care Provider +- [phone] Hank Garibay MD Unavailable [phone] Jacky Murry MD Unavailable [phone] Reason for Referral * Diagnostic Imaging (Routine) - Closed Specialty Diagnoses / Procedures Referred By Olga uribe Referred To Contact Diagnoses Pre-op testing Procedures XR Chest Pa Lateral 2 Views Puma Mckenzie MD Phone: tel: [address] [phone] Referral ID Status Reason Start Date Expiration Date Visits Re quested Visits Authorized [id number] Closed 06/27/2019 01/05/2021 1 1 FACTURER REPRESENTATIVE * (Routine) - Closed Specialty Diagnoses / Procedures Referred By Olga t Referred To Contact Diagnoses Pre-op testing Procedures ECG 12 lead Puma Mckenzie MD Phone: tel: [address] [phone] Referral ID Status Reason Start Date Expiration Date Visits Re quested Visits Authorized [id number] Closed 06/27/2019 01/05/2021 1 1 FACTURER REPRESENTATIVE * Diagnostic Imaging (Routine) - Closed Specialty Diagnoses / Procedures Referred By Olga uribe Referred To Contact Diagnoses Right hip pain Procedures XR Pelvis 1 or 2 Views Puma Mckenzie MD Phone: tel: Referral ID Status Reason Start Date Expiration Date Visits Re quested Visits Authorized [id number] Closed 06/27/2019 01/05/2021 1 1 FACTURER REPRESENTATIVE Reason for Visit * Reason Comments Follow-up Encounter Details Date Type Department Care Team (Late st Contact Info) Description 06/27/2019 9:30 AM MANUFACTURER REPRESENTATIVE Office Visit [facility] Orthopedics and Sports Medicine [address] [place] [address] [address] [place] [id number] Puma Mckenzie MD [address] [place] [address] [address] [place] [address] Right hip pain (Primary Dx); Pre-op testing; Primary osteoarthritis of right hip Social History Tobacco Use Types Packs/Day Years Used Date Smoking Tobacco: Former Smokeless Tobacco: Never Alcohol Use Standard Drinks/Week Comments Not Currently 0 (1 standard drink = 0.6 oz pur e alcohol) PHQ-2 Answer Date Recorded PHQ-2 Score 0 05/14/2019 Comments No Sex and Gender Information Value Date Recorded Sex Assigned at Not on file Legal Sex Female 4:33 AM MANUFACTURER REPRESENTATIVE Gender Identity Not on file Sexual Orientation Not on file Occupation Industry Job Start Date Job End Date retired Not on file Not on file Not on file documented as of this encounter Last Filed Vital Signs Vital Sign Reading Time Taken Comments Blood Pressure 133/83 06/27/2019 8:59 AM MANUFACTURER REPRESENTATIVE Pulse 61 06/27/2019 8:59 AM MANUFACTURER REPRESENTATIVE Temperature - - Respiratory Rate - - Oxygen Saturation - - Inhaled Oxygen Concentration - - Weight 88.5 kg (195 lb 3.2 oz) 06/27/2019 8:59 A M MANUFACTURER REPRESENTATIVE Height 152.4 cm (5') 06/27/2019 8:59 AM MANUFACTURER REPRESENTATIVE Body Mass Index 38.12 06/27/2019 8:59 AM MANUFACTURER REPRESENTATIVE documented in this encounter Progress Notes * Puma Mckenzie MD - 06/27/2019 9:30 AM CST Images from the original note were not included. FOLLOW UP VISIT Subjective CHIEF COMPLAINT She had concerns including Follow-up of the Right Hip. HISTORY OF PRESENT ILLNESS This is a pleasant 83-year-old female status post bilateral total knee arthroplasties by Dr. Garibay with satisfactory result. She was referred to me for consideration for right total hip arthroplasty. She has severe advanced right hip osteoarthritis refractory to extensive conservative management i ncluding anti-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s, pain medication, injections, attempted weight loss, and more. She hasdiminished quality of life and pain with activities of daily living. She has difficulty walking more than 100 ft and is requesting right total hip arthroplasty. Pain Assessment Pain Assessment: 0-10 Pain Score: 6 MEDICATIONS She has a current medication list which includes the following prescription(s): albuterol hfa, cholecalciferol, famotidine-ca carb-mag hydrox, felodipine, meloxicam, pantoprazole dr, pramipexole, propranolol, spironolactone, and tizanidine. REVIEW OF SYSTEMS Review of Systems Constitutional: [...] Negative for hallucinations. Objective PHYSICAL EXAM BP 133/83 Pulse 61 Ht 152.4 cm (5') Wt 88.5 kg (195 lb 3.2 oz) LMP (LMP Unknown) BMI 38.12 kg/m?? Right hip Inspection Erythema: absent Edema: absent Swelling: absent Effusion: absent Skin temperature: normal Surgical scar/wound: absent. Gait: antalgic Limp: slight Supportive device: none Limb length: equal. Palpation Tenderness: absent. Radiating pain: no. Pop or click: no. Pelvic stability AP stress: stable Pelvic stability lateral stress: stable Range of motion The patient has reduced range of motion of the right hip. The patient has pain with range of motion of the right hip. Stability The patient has normal stabiltiy of the right hip. Strength The patient has 5/5 strength throughout. Neurovascular The patient has normal vascular on the right side of their body. The patient has normal sensation. Tests Anterior impingement: positive Posterior impingement: posterior Lateral impingement: positive Anterior apprehension: posterior KYLE: positive Resisted SLR (straight leg raise): positive REVIEW OF X-RAYS/STUDIES/LABS XR Pelvis 1 or 2 Views Severe advanced right hip osteoarthritis with pxlh-[id number]-[id number] contact, osteophyte formation, subluxation. Assessment/Plan Tess was seen today for follow-up. Diagnoses and all orders for this visit: Right hip pain - XR Pelvis 1 or 2 Views Pre-op testing - CBC with auto differential; Future - Comprehensive metabolic panel; Future - Hemoglobin A1c; Future - ECG 12 lead; Future - Urinalysis reflex to microscopic and culture Urine; Future - XR Chest Pa Lateral 2 Views; Future PLAN I personally discussed the nature [...] today. The patient will follow up for right total hip arthroplasty. Patient lives alone will likely require inpatient rehab following surgery. Pmua Mckenzie MD FACTURER REPRESENTATIVE documented in this encounter Plan of Treatment Not on file documented as of this encounter Procedures Procedure Name Priority Date/Time Associated Diagnosis Comments XR PELVIS 1 OR 2 VIEWS Schedule Routine, Read Routine (OP Routine) 06/27/2019 12:45 PM MANUFACTURER REPRESENTATIVE Right hip pain documented in this encounter Results * ECG 12 lead (07/01/2019 10:39 AM MANUFACTURER REPRESENTATIVE) 07/01/2019 10:3 7 AM MANUFACTURER REPRESENTATIVE Narrative [facility] - 07/01/2019 12:09 PM MANUFACTURER REPRESENTATIVE Vent Rate: 51 bpm RR Interval: 1159 msec [place] Interval: 183 msec QRS Duration: 76 msec QT Interval: 438 msec QTC Interval: 416 msec P-R-T Lannon: 79 - 36 - 57 degrees SINUS BRADYCARDIA WITH OCCASIONAL SUPRAVENTRICULAR PREMATURE COMPLEXES No previous tracing is available for comparison Electronically Signed By: Dr Saud Ayers us Puma Mckenzie MD ECG ORDERABLES Final Re sult [facility] * XR Chest Pa Lateral 2 Views (07/01/2019 10:25 AM MANUFACTURER REPRESENTATIVE) Anatomical Region Laterality Modality Body, Chest N/A Computed Radiogr aphy 07/01/2019 1:18 PM MANUFACTURER REPRESENTATIVE Impressions 07/01/2019 1:19 PM MANUFACTURER REPRESENTATIVE 1. ??No acute pulmonary findings. 2. ??Cardiomegaly. Electronically signed by: Saud Mendenhall M.D. Narrative 07/01/2019 1:19 PM MANUFACTURER REPRESENTATIVE EXAMINATION: XR CHEST PA LATERAL 2 VIEWS. [...] Cardiomegaly. Electronically signed by: Saud Mendenhall M.D. us Puma Mckenzie MD IMG XR PROCEDURES Final Result * Urinalysis reflex to microscopic and culture Urine (07/01/2019 9:50 AM MANUFACTURER REPRESENTATIVE) Color, ur Yellow Yellow [facility] ([place]) Clarity, ur Clear Clear [facility] ([place]) Specific gravity, ur 1.010 1.010 - 1.025 [facility] ([place]) pH, urine 6.5 [facility] ([place]) Protein, ur ql Negative Negative [facility] ([place]) Glucose, ur ql Negative Negative [facility] ([place]) Ketones, ur Negative Negative [facility] ([place]) Bilirubin, ur Negative Negative [facility] ([place]) Blood, ur Negative Negative [facility]) Urobilinogen, ur 0.2 mg/dL [facility] ([place]) Nitrite, ur Negative Negative [facility] ([place]) Leukocyte esterase, ur Negative Negative [facility] ([place]) UA reflex comment Reflex conditions for microscopic UA and culture not met. [facility] ([place]) Urine 07/01/2019 9:50 AM MANUFACTURER REPRESENTATIVE 07/01/2019 10:11 AM MANUFACTURER REPRESENTATIVE Narrative [facility] ([place]) - 07/01/2019 10:31 AM MANUFACTURER REPRESENTATIVE ?? Urine pH is affected by diet, medications, systemic acid-base disturbances, and renal tubular function. ??pH may affect urinary stone formation. ??For example, urine pH below 6.0 may help reduce the tendency for calcium phosphate stones and pH greater than 6.0 may reduce the tendency for uric acid stone formation. Source: [facility]. Last revised 06-29-2017 us Puma Mckenzie MD LAB MICROBIOLOGY - GENER AL ORDERABLES Final Result [facility] ([place]) [facility] [place] [address] * Hemoglobin A1c (07/01/2019 9:50 AM MANUFACTURER REPRESENTATIVE) Hgb A1C 5.1 4.0 - 5.6 % [facility] ([place]) Estimated Average Glucose 100 mg/dL [facility] ([place]) Comment: The ADA recommends reporting an estimated Average Glucose (eAG) with all Hemoglobin A1c results using the equation derived from a study of 507 normal and diabetic adults. ??Minority populations were underrepresented and children were not included. ?? (Diabetes Care 31:6041-8322, 2008). ??The eAG is not equivalent to a fasting glucose. Blood specimen (specimen) 07/01/2019 9:50 AM MANUFACTURER REPRESENTATIVE 07/01/2019 10:13 AM MANUFACTURER REPRESENTATIVE us Puma Mckenzie MD LAB BLOOD ORDERABLES Fin al Result [facility] ([place]) 1 [facility] Department [place] [address] * Comprehensive metabolic panel (07/01/2019 9:50 AM MANUFACTURER REPRESENTATIVE) Sodium 136 135 - 145 mmol/L [facility] ([place]) Potassium, pl 4.2 3.3 - 4.9 mmol/L [facility] ([place]) Chloride 99 97 - 110 mmol/L [facility]) CO2 28 22 - 32 mmol/L [facility]) Anion gap 9 2 - 15 mmol/L [facility]) BUN 18 8 - 25 mg/dL [facility]) Creatinine 0.60 0.60 - 1.10 mg/dL [facility] ([place]) Glucose 87 70 - 199 mg/dL [facility] ([place]) [...] - 8.5 g/dL [facility]) Albumin 3.8 3.5 - 5.0 g/dL [facility] ([place]) Alk phos 114 40 - 130 Units/L [facility] ALT 7 7 - 45 Units/L [facility]) AST 13 10 - 45 Units/L [facility]) Blood specimen (specimen) 07/01/2019 9:50 AM MANUFACTURER REPRESENTATIVE 07/01/2019 10:13 AM MANUFACTURER REPRESENTATIVE Puma Mckenzie MD LAB BLOOD ORDERABLES Fin al Result [facility] ([place]) 1 [facility] Department [place] [address] * (ABNORMAL) CBC with auto differential (07/01/2019 9:50 AM MANUFACTURER REPRESENTATIVE) WBC 6.6 3.8 - 9.9 K/cumm [facility] ([place]) Hgb 13.7 11.9 - 15.5 g/dL [facility]) Hct 43.2 35.6 - 45.5 % [facility]) Plt 285 150 - 400 K/cumm [facility]) MPV 9.4 9.1 - 12.3 fL [facility]) RBC 4.97 3.90 - 5.20 M/cumm [facility] ([place]) MCV 86.9 81.3 - 96.4 fL [facility] ([place]) MCH 27.6 27.1 - 33.3 pg [facility] ([place]) MCHC 31.7(L) 32.3 - 35.7 g/dL [facility] ([place]) RDW CV 13.4 11.1 - 14.9 % [facility]) RDW SD 42.5 35.7 - 48.1 fL [facility] ([place]) NRBC abs 0.00 0.00 - 0.01 K/cumm [facility] ([place]) Blood specimen (specimen) 07/01/2019 9:50 AM MANUFACTURER REPRESENTATIVE 07/01/2019 10:13 AM MANUFACTURER REPRESENTATIVE Puma Mckenzie MD LAB BLOOD ORDERABLES Fin al Result [facility] ([place]) 1 [facility] Department [place] [address] * XR Pelvis 1 or 2 Views (06/27/2019 12:45 PM MANUFACTURER REPRESENTATIVE) Anatomical Region Laterality Modality Body, Pelvis N/A Digital Radiogra phy Narrative 06/27/2019 12:45 PM MANUFACTURER REPRESENTATIVE Severe advanced right hip osteoarthritis with [id number] contact, osteophyte formation, subluxation. Puma Mckenzie MD IMG XR PROCEDURES Final Result documented in this encounter Visit Diagnoses Diagnosis Right hip pain- Primary Pain in joint, pelvic region and thigh Pre-op testing Unspecified pre-operative examination Primary osteoarthritis of right hip Pre-op testing Unspecified pre-operative examination Pre-op testing Unspecified pre-operative examination Pre-op testing Unspecified pre-operative examination Primary osteoarthritis of right hip documented in this encounter Care Teams School Bus Driver/Custodian Relationship Specialty Start Date End Date Pepper Morgan MD PCP - General 09/16/16 Hank Garibay MD [address] [facility] [address] WARNER Sheridan [facility] [address] [place] [address] Surgeon Orthopedic Surgery 03/27/17 Jacky Murry MD [address] [facility] [address] WARNER Sher[place] [facility] [address] [place] [address] Ophthalmology 03/27/17 documented as of this encounter
--- OUTSIDE RECORDS SUMMARY | 2024-06-18 19:02 | XMS_ITS | Encounter Summary ---
Author Organization [facility] Address [address] [address] Care Team Providers Care Filament Maker Name Role Phone Pepper Morgan MD Primary Care Provider [phone] Hank Garibay MD Unavailable Jacky Murry MD Unavailable [phone] Puma Mckenzie MD Unavailable [phone] Reason for Visit * Diagnostic Imaging (Routine) - Closed Specialty Diagnoses / Procedures Referred By Contac t Referred To Contact Diagnoses Bilateral leg edema Procedures US Vein Duplex Lower Extremity Bilateral Complete Pepper Morgan MD Phone: tel: fax: [facility] Referral ID Status Reason Start Date Expiration Date Visits Re quested Visits Authorized [id number] Closed 07/25/2019 02/02/2021 1 1 Encounter Details Date Type Department Care Team (Latest Contact Info) Description 07/25/2019 3:10 PM CONTRACT IMPLEMENTATION ANALYST Ancillary Procedure [facility] [address] [place] [id number] Bilateral leg edema Social History Tobacco Use Types Packs/Day Years [...] on file Legal Sex Female 4:33 AM CONTRACT IMPLEMENTATION ANALYST Gender Identity Not on file Sexual Orientation Not on file Occupation Industry Job Start Date Job End Date retired Not on file Not on file Not on file documented as of this encounter Plan of Treatment Not on file documented as of this encounter Procedures Procedure Name Priority Date/Time Associated Diagnosis Comments US VEIN DUPLEX LOWER EXTREMITY BILATERAL COMPLETE Schedule Routine, Read Routine (OP Routine) 07/25/2019 3:35 PM CONTRACT IMPLEMENTATION ANALYST Bilateral leg edema documented in this encounter Results * US Vein Duplex Lower Extremity Bilateral Complete (07/25/2019 3:35 PM CONTRACT IMPLEMENTATION ANALYST) Anatomical Region Laterality Modality Vascular Bilateral Ultrasound Narrative 07/25/2019 3:45 PM CONTRACT IMPLEMENTATION ANALYST VENOUS DOPPLER: Real Time high-resolution ultrasonography and [...] the right popliteal region. ?? us Pepper Morgan MD IMG US PROCEDURES Final Re sult documented in this encounter Visit Diagnoses Diagnosis Bilateral leg edema Edema documented in this encounter Care Teams Filament Maker Relationship Specialty Start Date End Date Pepper Morgan MD PCP - General 09/16/16 Hank Garibay MD [address] [facility] [address] WARNER [place] [facility] [address] [place] [address] Surgeon Orthopedic Surgery 03/27/17 Jacky Murry MD [address] [place] [address] DR WARNER [place] [address] [address] Ophthalmology 03/27/17 Puma Mckenzie MD [address] [place] [address] DR WARNER Sheridan [facility] [address] [place] [address] Surgeon Orthopedic Surgery 07/11/19 documented as of this encounter
--- OUTSIDE RECORDS SUMMARY | 2024-06-18 19:02 | XMS_ITS | Encounter Summary ---
Author Organization [facility] Address [address] [place] [address] Phone Care Team Providers Care Paint Roller Covermaker Name Role Phone Pepper Morgan MD Primary Care Provider + [phone] Hank Garibay MD Unavailable [phone] Jacky Murry MD Unavailable [phone] Puma Mckenzie MD Unavailable [phone] Encounter Details Date Type Department Care Team (Late st Contact Info) Description 07/26/2019 Orders Only [facility] [address] [place] [address] Tristin Morgan MD [address] [place] [address] [place] [address] Social History Tobacco Use Types Packs/Day Years [...] file Legal Sex Female 4:33 AM ACTIVITY LEADER Gender Identity Not on file Sexual Orientation Not on file Occupation Industry Job Start Date Job End Date retired Not on file Not on file Not on file documented as of this encounter Plan of Treatment Not on file documented as of this encounter Procedures Procedure Name Priority Date/Time Associated Diagnosis Comments SCAN - LABS 07/26/2019 11:22 AM ACTIVITY LEADER documented in this encounter Results * SCAN - LABS (07/26/2019 11:22 AM ACTIVITY LEADER) Tristin Morgan MD Final Result documented in this encounter Visit Diagnoses Not on filedocumented in this encounter Care Teams Paint Roller Covermaker Relationship Specialty Start Date End Date Pepper Morgan MD PCP - General 09/16/16 Hank Garibay MD [address] [facility] [address] [place] [place] [address] Surgeon Orthopedic Surgery 03/27/17 Jacky Murry MD [address] [facility] [address] [place] [place] [address] Ophthalmology 03/27/17 Puma Mckenzie MD [address] [facility] [address] WARNER [place] [place] [address] Surgeon Orthopedic Surgery 07/11/19 documented as of this encounter
--- OUTSIDE RECORDS SUMMARY | 2024-06-18 19:02 | XMS_ITS | Encounter Summary ---
Author Organization [facility] Address [address] [place] [address] Phone Care Team Providers Care Sculpture Instructor Name Role Phone Pepper Morgan MD Primary Care Provider + [phone] Hank Garibay MD Unavailable [phone] Jacky Murry MD Unavailable [phone] Encounter Details Date Type Department Care Team (Late st Contact Info) Description 03/18/2019 Orders Only [facility] [address] [place] [address] Pepper Morgan MD [address] [place] [id number] Social History Tobacco Use Types Packs/Day Years Used Date Smoking Tobacco: Former Smokeless Tobacco: Never Alcohol Use Standard Drinks/Week Comments Not Currently 0 (1 standard drink = 0.6 oz pur e alcohol) Comments No Sex and Gender Information Value Date Recorded Sex Assigned at Not on file Legal Sex Female 4:33 AM CURING OVEN ATTENDANT Gender Identity Not on file Sexual Orientation Not on file Occupation Industry Job Start Date Job End Date retired Not on file Not on file Not on file documented as of this encounter Plan of Treatment Not on file documented as of this encounter Procedures Procedure Name Priority Date/Time Associated Diagnosis Comments SCAN - RADIOLOGY/IMAGING 03/18/2019 2:13 PM CDT documented in this encounter Results * SCAN - RADIOLOGY/IMAGING (03/18/2019 2:13 PM CDT) Anatomical Region Laterality Modality Other us Pepper Morgan MD Final Resu lt documented in this encounter Visit Diagnoses Not on filedocumented in this encounter Care Teams Sculpture Instructor Relationship Specialty Start Date End Date Pepper Morgan MD PCP - General 09/16/16 Hank Garibay MD [address] [facility] [address] WARNER Sher[place] [facility] [address] [place] [address] Surgeon Orthopedic Surgery 03/27/17 Jacky Murry MD [address] [facility] [address] WARNER Sheridan [facility] [address] [place] [address] Ophthalmology 03/27/17 documented as of this encounter
--- OUTSIDE RECORDS SUMMARY | 2024-06-18 19:02 | XMS_ITS | Encounter Summary ---
Author Organization [facility] Address [address] [facility] [address] [place] [address] Care Team Providers Care Barber Instructor Name Role Phone Pepper Morgan MD Primary Care Provider + [phone] Hank Garibay MD Unavailable [phone] Jacky Murry MD Unavailable [phone] Encounter Details Date Type Department Care Team (Late st Contact Info) Description 03/18/2019 9:20 AM CDT [facility] [address] [place] [phone] Benign hypertension Social History Tobacco Use Types Packs/Day Years Used Date Smoking Tobacco: Former Smokeless Tobacco: Never Alcohol Use Standard Drinks/Week Comments Not Currently 0 (1 standard drink = 0.6 oz pur e alcohol) Comments No Sex and Gender Information Value Date Recorded Sex Assigned at Not on file Legal Sex Female 4:33 AM RIBBON SWEATBAND OPERATOR Gender Identity Not on file Sexual Orientation Not on file Occupation Industry Job Start Date Job End Date retired Not on file Not on file Not on file documented as of this encounter Plan of Treatment Not on file documented as of this encounter Visit Diagnoses Diagnosis Benign hypertension Essential hypertension, benign documented in this encounter Care Teams Barber Instructor Relationship Specialty Start Date End Date Pepper Morgan MD PCP - General 09/16/16 Hank Garibay MD [address] [facility] [address] WARNER [place] [facility] [address] [place] [address] Surgeon Orthopedic Surgery 03/27/17 Jacky Murry MD [address] [facility] [address] WARNER Sheridan [facility] [address] [place] [address] Ophthalmology 03/27/17 documented as of this encounter
--- OUTSIDE RECORDS SUMMARY | 2024-06-18 19:02 | XMS_ITS | Encounter Summary ---
Author Organization [facility] Address [address] [place] [id number] Care Team Providers Care Ball Racker Name Role Phone Pepper Morgan MD Primary Care Provider + [phone] Hank Garibay MD Unavailable [phone] Jacky Murry MD Unavailable [phone] Reason for Visit * Reason Comments Follow-up Encounter Details Date Type Department Care Team (Late st Contact Info) Description 03/19/2019 8:30 AM CDT Office Visit [facility] [address] [place] [id number] Lillian Jones NP [address] [address] Benign hypertension (Primary Dx); Hyponatremia; Cough; Excessive cerumen in ear canal, left Social History Tobacco Use Types Packs/Day Years Used Date Smoking Tobacco: Former Smokeless Tobacco: Never Alcohol Use Standard Drinks/Week Comments Not Currently 0 (1 standard drink = 0.6 oz pur e alcohol) Comments No Sex and Gender Information Value Date Recorded Sex Assigned at Not on file 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 Gender Identity Not on file Sexual Orientation Not on file Occupation Industry Job Start Date Job End Date retired Not on file Not on file Not on file documented as of this encounter Last Filed Vital Signs Vital Sign Reading Time Taken Comments Blood Pressure 128/76 03/19/2019 8:57 AM CDT Pulse 60 03/19/2019 8:57 AM CDT Temperature 36.4 ??C (97.6 ??F) 03/19/2019 8:35 AM CD T Respiratory Rate 20 03/19/2019 8:35 AM CDT Oxygen Saturation 94% 03/19/2019 8:35 AM CDT Inhaled Oxygen Concentration - - Weight 87.5 kg (193 lb) 03/19/2019 8:35 AM CDT Height - - Body Mass Index 36.47 03/11/2019 8:23 AM CDT documented in this encounter Patient Instructions * Patient Instructions* Lillian Jones NP - 03/19/2019 8:30 AM CDT Return in 8 weeks (on 05/14/2019) for Annual physical with Dr. RANGEL. BLOOD PRESSURES: CONTINUE off the Indapamide - this caused too low of Sodium. Use a digital home blood pressure monitor daily (mid-day), record blood pressure and pulse results.Avoid strenuous activity, drinking any caffeine, or smoking 30 minutes prior to taking BP. Bring the BP monitor and results to every office follow-up. Your blood pressure goal is 100-140 over 60-90 range - less than 140/90. Your pulse goal range is 60-100 (lower numbers are better) If your BP is [...] and 30 min of challenging exercise daily COUGH: Continue the Augmentin as directed. Reduce Prednisone to 20mg tomorrow and the next day. Then down to 10mg for 2 days then STOP. EAR: Educated on avoidance of q-tip use in the future and putting anything into the ear canal. Ear drops, such as over the counter Debrox or hydrogen peroxide, periodically 2 times weekly or to loosen cerumen in future. Apply 5 drops in ear then put 1/2 cotton ball into the ear to keep the drops in place, remove cotton ball in approximately 10 minutes. When the ear feels blocked would recommend doing this 1-2 times daily until large amounts of ear wax are removed, after a few applications you should start to notice ear wax removed on the cotton ball. You may also purchase an [id number] ear vacuum or a remover kit. Once the wax has been loosened by the Debrox or hydrogen peroxide the vacuum or kit should be able to remove wax from the ear. If you have no success with this intervention, call the office for a nurse visit to remove the wax documented in this encounter Progress Notes * Lillian Jones NP - 03/19/2019 8:30 AM CDT Images from the original note were not included. Subjective/Objective Patient ID: Tess Benedict is a 83 y.o. female presenting in office today for follow-up. Vitals: 03/19/19 0835 03/19/19 0857 BP: (!) 174/100 128/76 BP Location: Right arm Right arm Patient Position: Sitting Sitting Pulse: (!) 42 60 Resp: 20 Temp: 36.4 ??C (97.6 ??F) TempSrc: Oral SpO2: 94% Weight: 87.5 kg (193 lb) Chief Complaint Follow-up Abdominal discomfort and Hyponatremia: She was seen on 03/11/19 for substernal abdominal discomfot that had stopped a few days before (after stopping CBD tincture) and having large BM. Labs that day showed hyponatremia (130) she was instructed to stop Indapamide. She repeated her BMP on 03/15/19 (improved - see below). She has had no return abdominal discomfort since stopping the CBD tincture. She has been monitoring her home Bps and brought her list today of readings. Her range has been 122-145/60-74, pulses 50-57. ER Follow-up: She went to [facility] 03/13/19 for coughing and wheezing. She was started on steroids, Augmentin and given an albuterol inhaler. She brought copy of her EKG (WNL) and CXR (clear) - will be sent to scanning. She has been taking these meds as directed. She is on a large dose of steroids and states she isn't sleeping well and is very shaky. She hasn't needed the albuterol inhaler in 2 days. She states she is feeling better and her breathing and fatigue is greatly improved. Denies fevers, chills, wheezing, SOB, chest pain, arm pain, dizziness, N/V/D, abdominal pain, extremity edema. Discharge medications were reviewed and have been reconciled. EAR Fullness: She has had left ear fullness lately. She has not been using any ear drops, but has some at home ifneeded. Review of Systems Constitutional: Negative for appetite change, chills, fatigue and fever. HENT: Positive for postnasal drip and rhinorrhea. Negative for congestion, ear pain (fullness of the left ear), sinus pressure, sore throat, trouble swallowing and voice change. Respiratory: Positive for cough. Negative for shortness of breath and wheezing. Cardiovascular: Negative for chest pain, palpitations and leg swelling. Gastrointestinal: Negative for abdominal distention, abdominal pain, diarrhea, nausea and vomiting. Skin: Negative for pallor. Neurological: Negative for dizziness and headaches. Psychiatric/Behavioral: Negative for confusion. Physical Exam Constitutional: She is oriented to person, place, and time. She appears well- developed. No distress. HENT: Head: Normocephalic and atraumatic. Right Ear: Tympanic membrane, external ear and ear canal normal. Left Ear: External ear and ear canal normal. Nose: Rhinorrhea present. Right sinus exhibits no maxillary sinus tenderness and no frontal sinus tenderness. Left sinus exhibits no maxillary sinus tenderness and no frontal sinus tenderness. Mouth/Throat: Uvula is midline, oropharynx is clear and moist and mucous membranes are normal. No uvula swelling. No posterior oropharyngeal edema or posterior oropharyngeal erythema. Excessive cerumen in left ear canal, unable to visualize TM, declined ear cleaning during OV Eyes: Pupils are equal, round, and reactive to light. EOM are normal. Neck: Normal range of motion. Neck supple. Cardiovascular: Normal rate, regular rhythm, normal heart sounds and intact distal pulses. Pulmonary/Chest: Effort normal and breath sounds normal. No respiratory distress. She has no wheezes. Dry coughing during OV Abdominal: Soft. Bowel sounds are normal. She exhibits no distension and no mass. There is no hepatosplenomegaly. There is no tenderness. There is no rigidity, no guarding and no CVA tenderness. No hernia. Musculoskeletal: She exhibits no edema. Lymphadenopathy: She has no cervical adenopathy. Neurological: She is alert and oriented to person, place, and time. Skin: Skin is warm and dry. Capillary refill takes less than 2 seconds. Psychiatric: She has a normal mood and affect. Her behavior is normal. Judgment and thought contentnormal. LABS: Lab on 03/18/2019 Component Date Value Ref [...] 03/18/2019 96 70 - 199 mg/dL Final Comment: Interpretive [...] Current interpretive data was last revised 2017. ??? Calcium 03/18/2019 9.5 8.5 - 10.3 [...] Cholesterol Direct 03/18/2019 101 <=129 mg/dL Final Comment: Interpretive Data Ages < or = 19 years Acceptable: <110 mg/dL Borderline high: 110-129 mg/dL High: >or= 130 mg/dL Ages > or = 20 years Optimal: <100 mg/dL Near optimal: 100-129 mg/dL Borderline high: 130-159 mg/dL High: >160 mg/dL Literature References: 1. Expert Panel on Integrated Guidelines for Cardiovascular Health and Risk Reduction in Children and Adolescents. Pediatrics 2011;128:S213 2. NCEP Expert Panel. Circulation 2004;110:227 Current Interpretive Data was last revised on 2018. ??? GFR 03/18/2019 80 mL/min/1.73 m2 Final Comment: Interpretive Data Reference Interval Normal >/= 90 mL/min/1.73m2 Mildly decreased* 60 - 89 mL/min/1.73m2 Mildly to moderately decreased 45 - 59 mL/min/1.73m2 Moderately to severely decreased 30 - 44 mL/min/1.73m2 Severely decreased 15 - 29 mL/min/1.73m2 Kidney Failure < 15 mL/min/1.73m2 *Relative to young adult level If -Bulgarian multiply value by 1.16. Estimated glomerular filtration [...] Current interpretive data was last reviewed 2016. Lab on 03/11/2019 Component Date Value Ref [...] 03/11/2019 104 70 - 199 mg/dL Final Comment: Interpretive [...] Current interpretive data was last revised 2017. ??? Calcium 03/11/2019 9.2 8.5 - 10.3 [...] ??? Neutrophil pct 03/11/2019 70.1 % Final Comment: Interpretive Data Percent cell count reference ranges are not reported, since discordance with absolute values may lead to misinterpretation of CBC data. Current Interpretive Data was last revised on 2017. ??? Imm gran pct 03/11/2019 0.6 % Final Comment: Interpretive Data Percent cell count reference ranges are not reported, since discordance with absolute values may lead to misinterpretation of CBC data. Current Interpretive Data was last revised on 2017. ??? Lymphocyte pct 03/11/2019 14.3 % Final Comment: Interpretive Data Percent cell count reference ranges are not reported, since discordance with absolute values may lead to misinterpretation of CBC data. Current Interpretive Data was last revised on 2017. ??? Monocyte pct 03/11/2019 8.4 % Final Comment: Interpretive Data Percent cell count reference ranges are not reported, since discordance with absolute values may lead to misinterpretation of CBC data. Current Interpretive Data was last revised on 2017. ??? Eosinophil pct 03/11/2019 5.7 % Final Comment: Interpretive Data Percent cell count reference ranges are not reported, since discordance with absolute values may lead to misinterpretation of CBC data. Current Interpretive Data was last revised on 2017. ??? Basophil pct 03/11/2019 0.9 % Final Comment: Interpretive Data Percent cell count reference ranges are not reported, since discordance with absolute values may lead to misinterpretation of CBC data. Current Interpretive Data was last revised on 2017. ??? GFR 03/11/2019 87 mL/min/1.73 m2 Final Comment: Interpretive Data Reference Interval Normal >/= 90 mL/min/1.73m2 Mildly decreased* 60 - 89 mL/min/1.73m2 Mildly to moderately decreased 45 - 59 mL/min/1.73m2 Moderately to severely decreased 30 - 44 mL/min/1.73m2 Severely decreased 15 - 29 mL/min/1.73m2 Kidney Failure < 15 mL/min/1.73m2 *Relative to young adult level If -Bulgarian multiply value by 1.16. Estimated glomerular filtration [...] Current interpretive data was last reviewed 2016. Assessment/Plan Diagnoses and all orders for this visit: Benign hypertension (I10) (Primary) BPS in good range since stopping Indapamide. CONTINUE off the Indapamide - this caused too low of Sodium. Use a digital home blood pressure monitor daily (mid-day), record blood pressure and pulse results.Avoid strenuous activity, drinking any caffeine, or smoking 30 minutes prior to taking BP. Bring the BP monitor and results to every office follow-up. Your blood pressure goal is 100-140 over 60-90 range - less than 140/90. Your pulse goal range is 60-100 (lower numbers are better) If your BP is [...] and 30 min of challenging exercise daily Hyponatremia (E87.1) Resolved with stopping Indapamide. Cough (R05) Continue the Augmentin as directed. BEGIN WEANING OF Prednisone to 20mg tomorrow and the next day. Then down to 10mg for 2 days then STOP. Only use Albuterol if needed for wheezing or coughing (may also cause jitteriness). Excessive cerumen in ear canal, left (H61.22) Declined irrigation today. Educated on avoidance of q-tip use in the future and putting anything into the ear canal. Ear drops, such as over the counter Debrox or hydrogen peroxide, periodically 2 times weekly or to loosen cerumen in future. Apply 5 drops in ear then put 1/2 cotton ball into the ear to keep the drops in place, remove cotton ball in approximately 10 minutes. When the ear feels blocked would recommend doing this 1-2 times daily until large amounts of ear wax are removed, after a few applications you should start to notice ear wax removed on the cotton ball. You may also purchase an [id number]-[id number] ear vacuum or a remover kit. Once the wax has been loosened by the Debrox or hydrogen peroxide the vacuum or kit should be able to remove wax from the ear. If you have no success with this intervention, call the office for a nurse visit to remove the wax Lillian Jones NP Cosigned by Pepper Morgan MD at 03/19/2019 9:26 PM CDT documented in this encounter Plan of Treatment Not on file documented as of this encounter Visit Diagnoses Diagnosis Benign hypertension- Primary Essential hypertension, benign Hyponatremia Hyposmolality and/or hyponatremia Cough Excessive cerumen in ear canal, left documented in this encounter Discontinued Medications Medication Sig Discontinue Reason Start Date End Da te indapamide (LOZOL) 1.25 mg tabletIndications:Benign hypertension Take 1 tablet (1.25 mg total) by mouth daily Therapy completed 12/06/2018 03/19/2019 documented as of this encounter Historical Medications * This list may reflect changes made after this encounter. amoxicillin-clavu lanate (AUGMENTIN) 875-125 mg per tablet TK 1 T PO Q 12 H 0 03/13/2019 03/23/2019 albuterol HFA (PROVENTIL HFA,VENTOLIN HFA,PROAIR HFA) 90 mcg/actuation inhaler INHALE 1 TO 2 PUFFS PO Q 4 H PRN SOB 0 03/14/2019 07/01/2019 added in this encounter Care Teams Ball Racker Relationship Specialty Start Date End Date Pepper Morgan MD PCP - General 09/16/16 Hank Garibay MD [address] [facility] [address] [place] [address] Surgeon Orthopedic Surgery 03/27/17 Jacky Murry MD [address] [place] [address] [address] [place] [address] Ophthalmology 03/27/17 documented as of this encounter
--- OUTSIDE RECORDS SUMMARY | 2024-06-18 19:02 | XMS_ITS | Encounter Summary ---
Author Organization [facility] Medical Group Address [address] [facility] [address] [place] [address] Care Team Providers Care Chair Finisher Name Role Phone Pepper Morgan MD Primary Care Provider [phone] Hank Garibay MD Unavailable [phone] Jacky Murry MD Unavailable [phone] Puma Mckenzie MD Unavailable [phone] Reason for Referral * Diagnostic Imaging (Routine) - Closed Specialty Diagnoses / Procedures Referred By Contac t Referred To Contact Diagnoses Acute low back pain, unspecified back pain laterality, unspecified whether sciatica present Procedures XR Spine Lumbar Complete 4 Or More Jacqueline Fuller NP Phone: tel: [facility] Referral ID Status Reason Start Date Expiration Date Visits Re quested Visits Authorized [id number] Closed 08/08/2019 02/16/2021 1 1 HT RESERVATIONS MANAGER Reason for Visit * Reason Comments Follow-up 2 week Encounter Details Date Type Department Care Team (Latest Contact Info) Description 08/08/2019 10:00 AM FLIGHT RESERVATIONS MANAGER Office Visit [facility] [address] [place] [address] Jacqueline Fuller NP [address] [facility] [place] [address] Bilateral leg edema (Primary Dx); Edema, unspecified type; Iron deficiency anemia, unspecified iron deficiency anemia type; Acute midline low back pain without sciatica; Hereditary essential tremor Social History Tobacco Use Types Packs/Day [...] file Legal Sex Female 4:33 AM FLIGHT RESERVATIONS MANAGER Gender Identity Not on file Sexual Orientation Not on file Occupation Industry Job Start Date Job End Date retired Not on file Not on file Not on file documented as of this encounter Last Filed Vital Signs Vital Sign Reading Time Taken Comments Blood Pressure 130/70 08/08/2019 9:53 AM FLIGHT RESERVATIONS MANAGER Pulse 60 08/08/2019 9:53 AM FLIGHT RESERVATIONS MANAGER Temperature 36.6 ??C (97.8 ??F) 08/08/2019 9:53 AM CS T Respiratory Rate 12 08/08/2019 9:53 AM FLIGHT RESERVATIONS MANAGER Oxygen Saturation 98% 08/08/2019 9:53 AM FLIGHT RESERVATIONS MANAGER Inhaled Oxygen Concentration - - Weight 89.8 kg (198 lb) 08/08/2019 9:53 AM FLIGHT RESERVATIONS MANAGER Height - - Body Mass Index 38.67 07/24/2019 10:03 AM FLIGHT RESERVATIONS MANAGER documented in this encounter Patient Instructions * Patient Instructions* Jacqueline Fuller NP - 08/08/2019 10:00 AM FLIGHT RESERVATIONS MANAGER Instructions to javascript front end developer Please have patient get BMP for edema and CBC for anemia Please arrange xray of lumbar spine for low back pain Please cancel August appointment with me Instructions for patient You may take tramadol for pain twice a day as needed, you may take with tylenol You can use Aspercreme on your back Ice or heat for pain Keep your legs elevated If the swelling worsens let us know HT RESERVATIONS MANAGER HT RESERVATIONS MANAGER documented in this encounter Progress Notes * AlinaJacqueline Claudia, NOEL - 08/08/2019 10:00 AM CST Subjective/Objective Patient ID: Tess Benedict is a 83 y.o. female. Chief Complaint Follow-up (2 week ) HPI She is still having pain in the bilat legs, she still has swelling but it is improving She is having pain in her back that is keeping her up at night She denies any pain going down the legs She is still doing in home PT two times a week She has had pain in the back that remains persistent Pain is achy in back with activity and when lying flat at night She takes aleve for pain and has some relief She has a resting tremor that is worsening she cannot even hold a fork Review of Systems Constitutional: Negative for chills and fever. Respiratory: Negative for chest tightness and shortness of breath. Cardiovascular: Positive for leg swelling. Negative for chest pain and palpitations. Gastrointestinal: Positive for constipation. Negative for diarrhea, nausea and vomiting. Genitourinary: Negative for difficulty urinating. Musculoskeletal: Positive for arthralgias and back pain. Neurological: Positive for tremors (resting. See HPI ). Negative for dizziness and light-headedness. Psychiatric/Behavioral: Negative for sleep disturbance. Physical Exam Vitals signs and nursing note reviewed. Constitutional: Appearance: Normal appearance. HENT: Head: Normocephalic and atraumatic. Cardiovascular: Rate and Rhythm: Normal rate and regular rhythm. Heart sounds: Murmur (systolic ) present. Comments: She has trace bilat LE edema Pulmonary: Effort: Pulmonary effort is normal. Breath sounds: Normal breath sounds. Musculoskeletal: General: Tenderness (rt hip site) present. Comments: Patient has pain in low back with ambulation. Unable to perform ROM testing d/t her gait instability and inability to get on exam table. Skin: General: Skin is warm and dry. Neurological: General: No focal deficit present. Mental Status: She is alert and oriented to person, place, and time. Motor: Weakness and tremor present. Gait: Gait abnormal (antalgic ). Comments: Hand zipper slide attacher weak bilaterally Psychiatric: Mood and Affect: Mood normal. Behavior: Behavior normal. Assessment/Plan Diagnoses and all orders for this visit: Bilateral leg edema (R60.0) (Primary) Edema, unspecified type (R60.9) Assessment & Plan: Improved with lasix. We will repeat BMP to monitor renal function. She remains on aldactone which we will continue. She was encouraged to keep legs elevated while at rest and to avoid additional saltintake. If edema returns can prescribe lasix prn if renal function is stable Orders: - Basic metabolic panel; Future Iron deficiency anemia, unspecified iron deficiency anemia type (D50.9) Assessment & Plan: Noted post-operatively. She has been on iron daily and is experiencing significant constipation. Instructed her to decrease iron dose to M, W, F and to increase her fluid intake. We will repeat CBC if H&H improved will stop iron and monitor. Orders: - CBC with auto differential; Future Acute midline low back pain without sciatica (M54.5) Assessment & Plan: Most likely secondary to degenerative disc disease. Unable to evaluate patient ROM or reflexes d/t her antalgic gait and inability to get on exam table. We will do xray of the lumbar spine to evaluate for any acute process. Will begin tramadol for pain. She is to call if symptoms worsen or persist Orders: - XR Spine Lumbar Complete 4 Or More; Future Hereditary essential tremor (G25.0) Assessment & Plan: She has a known tremor, but has progressively gotten worse with a limited hand hazardous material technician and difficulty holding a pen or fork. Will discuss additional treatment options with Dr. Morgan. Cosigned by Pepper Morgan MD at 08/10/2019 10:19 PM FLIGHT RESERVATIONS MANAGER HT RESERVATIONS MANAGER HT RESERVATIONS MANAGER documented in this encounter Miscellaneous Notes * Assessment & Plan Note - Jacqueline Fuller NP - 08/08/2019 12:31 PM CSTAssociated Problem(s): Essential tremor She has a known tremor, but has progressively gotten worse with a limited hand hazardous material technician and difficulty holding a pen or fork. Will discuss additional treatment options with Dr. Morgan. HT RESERVATIONS MANAGER * Assessment & Plan Note - Jacqueline Fuller NP - 08/08/2019 12:26 PM CSTAssociated Problem(s): Acute low back pain (Resolved 06/01/2021) Most likely secondary to degenerative disc disease. Unable to evaluate patient ROM or reflexes d/t her antalgic gait and inability to get on exam table. We will do xray of the lumbar spine to evaluate for any acute process. Will begin tramadol for pain. She is to call if symptoms worsen or persist HT RESERVATIONS MANAGER * Assessment & Plan Note - Jacqueline Fuller NP - 08/08/2019 10:35 AM CSTAssociated Problem(s): Edema (Resolved 11/18/2019) Improved with lasix. We will repeat BMP to monitor renal function. She remains on aldactone which we will continue. She was encouraged to keep legs elevated while at rest and to avoid additional saltintake. If edema returns can prescribe lasix prn if renal function is stable HT RESERVATIONS MANAGER * Assessment & Plan Note - Jacqueline Fuller NP - 08/08/2019 10:33 AM CSTAssociated Problem(s): Iron deficiency anemia, unspecified Noted post-operatively. She has been on iron daily and is experiencing significant constipation. Instructed her to decrease iron dose to M, W, F and to increase her fluid intake. We will repeat CBC if H&H improved will stop iron and monitor. HT RESERVATIONS MANAGER documented in this encounter Plan of Treatment Not on file documented as of this encounter Results * XR Spine Lumbar Complete 4 Or More (08/08/2019 10:50 AM FLIGHT RESERVATIONS MANAGER) Anatomical Region Laterality Modality Spine N/A Computed Radiogr aphy Narrative 08/08/2019 2:25 PM FLIGHT RESERVATIONS MANAGER Six views of the lumbar spine are [...] joints and left hip. ?? Jacqueline Fuller GLOST TILE SORTER IMG XR PROCEDURES Final Result * (ABNORMAL) CBC with auto differential (08/08/2019 10:30 AM FLIGHT RESERVATIONS MANAGER) WBC 7.4 3.8 - 9.9 K/cumm [facility] Hgb 13.2 11.9 - 15.5 g/dL [facility] Hct 44.3 35.6 - 45.5 % [facility] Plt 375 150 - 400 K/cumm [facility] MPV 9.6 9.1 - 12.3 fL [facility] RBC 4.77 3.90 - 5.20 M/cumm [facility] MCV 92.9 81.3 - 96.4 fL [facility] MCH 27.7 27.1 - 33.3 pg [facility] MCHC 29.8(L) 32.3 - 35.7 g/dL [facility] CH RDW CV 14.4 11.1 - 14.9 % [facility] CH RDW SD 49.7(H) 35.7 - 48.1 fL [facility] NRBC abs 0.00 0.00 - 0.01 K/cumm [facility] Blood specimen (specimen) 08/08/2019 10:30 AM FLIGHT RESERVATIONS MANAGER 08/08/2019 7:15 PM FLIGHT RESERVATIONS MANAGER Jacqueline Mccraymarionshivam GLOST TILE SORTER LAB BLOOD ORDERABL ES Final Result Performing Organization Address [facility] Co de Phone Number CHIDI VAUGHAN [phone] Department [place] [address] * (ABNORMAL) Basic metabolic panel (08/08/2019 10:30 AM FLIGHT RESERVATIONS MANAGER) Sodium 136 135 - 145 mmol/L [facility] CH Potassium, pl 5.2(H) 3.3 - 4.9 mmol/L [facility] CH Chloride 97 97 - 110 mmol/L [facility] CH CO2 28 22 - 32 mmol/L [facility] CH Anion gap 11 2 - 15 mmol/L [facility] CH BUN 18 8 - 25 mg/dL [facility] Creatinine 0.62 0.60 - 1.10 mg/dL [facility] CH Glucose 79 70 - 199 mg/dL [facility] Comment: Interpretive [...] 2017. Calcium 9.6 8.5 - 10.3 mg/dL [facility] Blood specimen (specimen) 08/08/2019 10:30 AM FLIGHT RESERVATIONS MANAGER 08/08/2019 7:15 PM FLIGHT RESERVATIONS MANAGER Jacqueline Taylor Everrenettawally GLOST TILE SORTER LAB BLOOD ORDERABL ES Final Result Performing Organization Address [facility] Co de Phone Number CHIDI [place]AU[place]AN [address] Department [place] [address] documented in this encounter Visit Diagnoses Diagnosis Bilateral leg edema- Primary Edema Edema, unspecified type Iron deficiency anemia, unspecified iron deficiency anemia type Acute midline low back pain without sciatica Hereditary essential tremor Essential and other specified forms of tremor Acute low back pain, unspecified back pain laterality, unspecified whether sciatica present documented in this encounter Discontinued Medications Medication Sig Discontinue Reason Start Date End Da te HYDROcodone-acetaminophen (NORCO) 5-325 mg per tabletIndications:Pain Take 1-2 tablets by mouth every 4 (four) hours as needed for pain Therapy completed 07/22/2019 08/08/2019 ondansetron ODT (ZOFRAN-ODT) 4 mg disintegrating tabletIndications:nausea and vomiting Take 1 tablet (4 mg total) by mouth every 6 (six) hours as needed for nausea or vomiting Therapy completed 07/11/2019 08/08/2019 documented as of this encounter Care Teams Chair Finisher Relationship Specialty Start Date End Date Pepper Morgan MD PCP - General 09/16/16 Hank Garibay MD [address] [facility] [address] [place] [address] Surgeon Orthopedic Surgery 03/27/17 Jacky Murry MD [address] [facility] [address] [place] [address] Ophthalmology 03/27/17 Puma Mckenzie MD [address] [facility] [address] [place] [address] Surgeon Orthopedic Surgery 07/11/19 documented as of this encounter
--- OUTSIDE RECORDS SUMMARY | 2024-06-18 19:02 | XMS_ITS | Encounter Summary ---
Author Organization [facility] Medical [facility] Address [address] [address] Care Team Providers Care Vehicle Mechanic Name Role Phone Pepper Morgan MD Primary Care Provider [phone] Hank Garibay MD Unavailable [phone] Jacky Murry MD Unavailable [phone] Reason for Referral * Diagnostic Imaging (Routine) - Closed Specialty Diagnoses / Procedures Referred By Contac t Referred To Contact Diagnoses Primary osteoarthritis of right hip Procedures FL Fluoro Guided Injection Hip Right Susy Hummel PA [address] [place] [address] [address] [place] [address] Phone: tel: fax: [address] [phone] Referral ID Status Reason Start Date Expiration Date Visits Re quested Visits Authorized [id number] Closed 03/27/2019 10/05/2020 1 1 * Diagnostic Imaging (Routine) - Closed Specialty Diagnoses / Procedures Referred By Contac t Referred To Contact Diagnoses History of arthroplasty of right knee Procedures XR Hip Right 2+ Vw Susy Hummel PA [address] [facility] [address] [place] [address] Phone: tel: fax: Referral ID Status Reason Start Date Expiration Date Visits Re quested Visits Authorized [id number] Closed 03/27/2019 10/05/2020 1 1 * Diagnostic Imaging (Routine) - Closed Specialty Diagnoses / Procedures Referred By Contac t Referred To Contact Diagnoses Primary osteoarthritis of right hip Procedures XR Knee Right 3 Views Susy Hummel PA [address] [facility] [address] [place] [address] Phone: tel: fax: Referral ID Status Reason Start Date Expiration Date Visits Re quested Visits Authorized [id number] Closed 03/27/2019 10/05/2020 1 1 Reason for Visit * Reason Comments Pain painful RTKA s/p fal l Pain right hip pain Pain Pain Encounter Details Date Type Department Care Team (Late st Contact Info) Description 03/27/2019 2:30 PM CDT Office Visit [facility] Orthopedics and Sports Medicine [address] [facility] [address] [place] [phone] Susy Hummel PA [address] [facility] [address] [place] [address] Primary osteoarthritis of right hip (Primary Dx); History of arthroplasty of right knee Social History Tobacco Use Types Packs/Day Years Used Date Smoking Tobacco: Former Smokeless Tobacco: Never Alcohol Use Standard Drinks/Week Comments Not Currently 0 (1 standard drink = 0.6 oz pur e alcohol) Comments No Sex and Gender Information Value Date Recorded Sex Assigned at Not on file Legal Sex Female 4:33 AM OCC THER Gender Identity Not on file Sexual Orientation Not on file Occupation Industry Job Start Date Job End Date retired Not on file Not on file Not on file documented as of this encounter Last Filed Vital Signs Vital Sign Reading Time Taken Comments Blood Pressure 136/56 03/27/2019 2:05 PM CDT Pulse 56 03/27/2019 2:05 PM CDT Temperature - - Respiratory Rate - - Oxygen Saturation - - Inhaled Oxygen Concentration - - Weight 88.5 kg (195 lb) 03/27/2019 2:05 PM CDT Height 154.9 cm (5' 1 ) 03/27/2019 2:05 PM CDT Body Mass Index 36.84 03/27/2019 2:05 PM CDT documented in this encounter Progress Notes * Susy Hummel PA - 03/27/2019 2:30 PM CDT Images from the original note were not included. NEW COMPLAINT VISIT Subjective CHIEF COMPLAINT She had concerns including Pain of the Right Knee; Pain of the Right Hip; Pain (painful RTKA s/p fall); and Pain (right hip pain). HISTORY OF PRESENT ILLINESS Ms. Benedict is a pleasant 83-year-old female who presents to clinic with the new complaint of right hip and knee pain. She reportedly fell approximately 3 weeks ago while slipping off of a curb, landing directly onto her right side. She states she kneeled to get up off the ground and feels this may have been the cause of her knee pain. She localizes the pain in her hip primarily to her groin, describing as sharp and rating at a 3/10. The pain in her knee is more of a dull ache that is also rated at a 3/10. She has been taking Aleve as needed with moderate relief and utilizing a walker for ambulatory assistance, especially in the mornings. Of note, she underwent a right total knee arthroplas ty by Dr. Garibay in 2013 with an excellent result. She denies any other complaints at this time. Pain Assessment Pain Assessment: 0-10 Pain Score: 3 PAST MEDICAL HISTORY She has a past medical history of Arthritis of ankle, Basal cell carcinoma of nose (09/2008), Fibrocystic breast, 4, not currently , Heel spur, unspecified laterality, rheumatic fever, OTHER MEDICAL (1991), OTHER MEDICAL, OTHER MEDICAL, OTHER MEDICAL, Joint pain (04/2002), Left footpain (03/1999), Malignant melanoma (CMS/HCC), Menopause, Obesity, Restless leg, Right carpal tunnelsyndrome, Superficial basal cell carcinoma (2002), and Tobacco use. 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 MEDICATIONS She has a current medication list which includes the following prescription(s): albuterol hfa, famotidine-ca carb-mag hydrox, felodipine, pramipexole, and propranolol. ALLERGIES She is allergic to celecoxib; sulfa (sulfonamide antibiotics); lisinopril; trazodone; amlodipine; and scopolamine. SOCIAL HISTORY She reports that she has quit smoking. She has never used smokeless tobacco. She reports that she drank alcohol. She reports that she does not use drugs. FAMILY HISTORY Family History Problem Relation Age of Onset ??? Cancer Other Family history of Cancer, unknown; ??? Arthritis Other Family history of Arthritis; ??? Abdominal Aortic Aneurysm Father ??? COPD Father REVIEW OF SYSTEMS Review of Systems Constitutional: Negative for activity change, appetite change, chills and fever. HENT: Negative for congestion, dental problem, ear pain, hearing loss and voice change. Eyes: Negative for pain and visual disturbance. Respiratory: Negative for apnea, cough, chest tightness and shortness of breath. Cardiovascular: Negative for chest pain, palpitations and leg swelling. Gastrointestinal: Negative for blood in stool, constipation, diarrhea, nausea and vomiting. Endocrine: Negative for cold intolerance and heat intolerance. Genitourinary: Negative for difficulty urinating and hematuria. Musculoskeletal: Positive for arthralgias and gait problem. Skin: Negative for color change, rash and wound. Allergic/Immunologic: Negative for environmental allergies. Neurological: Negative for dizziness, syncope, numbness and headaches. Hematological: Negative for adenopathy. Does not bruise/bleed easily. Psychiatric/Behavioral: Negative for confusion. The patient is not nervous/anxious and is not hyperactive. Objective PHYSICAL EXAM BP 136/56 Pulse 56 Ht 154.9 cm (5' 1 ) Wt 88.5 kg (195 lb) LMP (LMP Unknown) BMI 36.84 kg/m?? Right hip Inspection Erythema: absent Edema: [...] positive Resisted SLR (straight leg raise): positive Right knee Inspection Erythema: absent Cellulitis: absent Swelling: absent Surgical scar/wound: present. The surgical scar/wound is healed. Gait: antalgic Palpation Tenderness: present. The tenderness is located in the medial joint line and condyle. Patellar tracking: normal Crepitus: negative Patella grind: negative Subluxation: negative Range of motion The patient has normal range of motion of the right knee. The patient does not have pain with range of motion of the right knee. Stability The patient has normal AP and ML stability of the right knee. REVIEW OF X-RAYS/STUDIES/LABS XR Knee Right 3 Views X-ray of the right knee viewed and interpreted. There is no evidence of fracture, subluxation, or bony abnormality. Knee arthroplasty in good position with no interval change. XR Hip Right 2+ Vw Radiographs taken of the right knee today reveal severe degenerative changes with subchondral sclerosis, osteophyte formation, and significantly diminished joint space with near bone on bone contact. Assessment/Plan Tess was seen today for pain, pain, pain and pain. Diagnoses and all orders for this visit: Primary osteoarthritis of right hip - XR Knee Right 3 Views History of arthroplasty of right knee - XR Hip Right 2+ Vw Plan I reviewed Ms. Benedict's radiographs with her today, explaining the nature of her condition and treatment options. She has advanced osteoarthritis of the bilateral hips, which is likely also the cause of her right knee pain. We discussed total hip arthroplasty, but she is not interested in any surgical intervention at this time. I, therefore, ordered an intra-articular hip injection to be performed under fluoroscopy at [facility]. Hopefully this provides her with excellent relief. She is to continue with anti-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s and activity modification in the interim and may contact our office with any further questions or concerns. TEO Todd Cosigned by Puma Mckenzie MD at 03/28/2019 3:42 PM CDT documented in this encounter Miscellaneous Notes * Addendum Note - Tasha Cowan MA - 03/27/2019 2:30 PM CDTAddended by: TASHA COWAN on: 03/27/2019 04:23 PM Modules accepted: Orders documented in this encounter Plan of Treatment Not on file documented as of this encounter Procedures Procedure Name Priority Date/Time Associated Diagnosis Comments XR KNEE RIGHT 3 VIEWS Schedule Routine, Read Routine (OP Routine) 03/27/2019 2:26 PM CDT Primary osteoarthritis of right hip XR HIP RIGHT 2 OR 3 VIEWS Schedule Routine, Read Routine (OP Routine) 03/27/2019 2:25 PM CDT History of arthroplasty of right knee documented in this encounter Results * FL [...] signed by: Marcus Kearns M.D Susy BRUCE [facility] FLUOROSCOPY PROCE DURES Final Result * XR Knee Right 3 Views (03/27/2019 2:26 PM CDT) Anatomical Region Laterality Modality Lower Extremities, Knee Right Digital Radiography Narrative 03/27/2019 2:26 PM CDT X-ray of the right knee viewed and interpreted. ??There is no evidence of fracture, subluxation, or bony abnormality. Knee arthroplasty in good position with no interval change. Susy BETTS XR PROCEDURES Fin al Result * XR Hip Right 2+ Vw (03/27/2019 2:25 PM CDT) Anatomical Region Laterality Modality Lower Extremities, Hip, Pelvis Right D igital Radiography Narrative 03/27/2019 2:25 PM CDT Radiographs taken of the right knee today reveal severe degenerative changes with subchondral sclerosis, osteophyte formation, and significantly diminished joint space with near bone on bone contact. Susy Michelle BRUCE IMG XR PROCEDURES Fin al Result documented in this encounter Visit Diagnoses Diagnosis Primary osteoarthritis of right hip- Primary History of arthroplasty of right knee Primary osteoarthritis of right hip documented in this encounter Discontinued Medications Medication Sig Discontinue Reason Start Date End Da te aspirin 81 mg tablet Take 81 mg by mouth daily. Therapy completed 03/27/2019 documented as of this encounter Care Teams Vehicle Mechanic Relationship Specialty Start Date End Date Pepper Morgan MD PCP - General 09/16/16 Hank Garibay MD [address] [facility] [address] [place] [address] Surgeon Orthopedic Surgery 03/27/17 Jacky Murry MD [address] [facility] [address] [place] [address] Ophthalmology 03/27/17 documented as of this encounter
--- OUTSIDE RECORDS SUMMARY | 2024-06-18 19:02 | XMS_ITS | Encounter Summary ---
Author Organization [facility] Address [address] [place] [address] Care Team Providers Care Legal Arbitrator Name Role Phone Pepper Morgan MD Primary Care Provider + [phone] Hank Garibay MD Unavailable [phone] Jacky Murry MD Unavailable [phone] Puma Mckenzie MD Unavailable [phone] Encounter Details Date Type Department Care Team (Late st Contact Info) Description 07/22/2019 Telephone [facility] Orthopedics and Sports Medicine [address] [place] [address] [address], [place] [address] Mckenzie Collins MA Social History [...] on file Legal Sex Female 4:33 AM [employer] Gender Identity Not on file Sexual Orientation Not on file Occupation Industry Job Start Date Job End Date retired Not on file Not on file Not on file documented as of this encounter Ordered Prescriptions Prescription Sig Dispense Quantity Refills Last Filled Start Date End Date HYDROcodone-acetam inophen (NORCO) 5-325 mg per tabletIndications: Pain Take 1-2 tablets by mouth every 4 (four) hours as needed for pain 60 tablet 07/22/2019 0 documented in this encounter Miscellaneous Notes * Telephone Encounter - Mckenzie Collins MA - 07/22/2019 3:05 PM CST Thank you. Called patient. [employer] * Telephone Encounter - Susy Hummel PA - 07/22/2019 2:54 PM [employer] Rx sent. [employer] * Telephone Encounter - Mckenzie Collins MA - 07/22/2019 2:52 PM CST Patient called again. I dragan Mckenzie and Dr. Mckenzie are in surgery and they will check messagesas soon as they get a chance. [employer] * Telephone Encounter - Mckenzie Collins MA - 07/22/2019 10:04 AM CST Patient called and she is need of a refill on her [place]. She only has one left. Kyle Sparks. [employer] documented in this encounter Plan of Treatment Not on file documented as of this encounter Visit Diagnoses Not on filedocumented in this encounter Discontinued Medications Medication Sig Discontinue Reason Start Date End Da te HYDROcodone-acetaminophe n (NORCO) 5-325 mg per tabletIndications:Pain Take 1-2 tablets by mouth every 4 (four) hours as needed for pain Reorder 07/12/2019 07/22/2019 documented as of this encounter Care Teams Legal Arbitrator Relationship Specialty Start Date End Date Pepper Morgan MD PCP - General 09/16/16 Hank Garibay MD [address] [place] [address] Surgeon Orthopedic Surgery 03/27/17 Jacky Murry MD [address] [place] [address] Ophthalmology 03/27/17 Puma Mckenzie MD [address] [place] [address] Surgeon Orthopedic Surgery 07/11/19 documented as of this encounter
--- OUTSIDE RECORDS SUMMARY | 2024-06-18 19:02 | XMS_ITS | Encounter Summary ---
Author Organization Formerly [facility] Address [address] [place] [address] Care Team Providers Care Aircraft Launch And Recovery Technician Name Role Phone Pepper Morgan MD Primary Care Provider + [phone] Hank Garibay MD Unavailable [phone] Jacky Murry MD Unavailable [phone] Encounter Details Date Type Department Care Team (Late st Contact Info) Description 07/10/2019 10:08 AM LENS EDGE GRINDER MACHINE - 07/10/2019 12:33 PM LENS EDGE GRINDER MACHINE Surgery [facility] [address] [place] [address] Mary Mckenzie MD [address] [place] [id number] Right total hip arthroplasty, anterior approach Surgery Details Date/Time Status Location OR Service Patient Class Case Class Case Type Trauma Case? 07/10/2019 10:08 AM Posted [facility]PER[facility] RO[facility] OR 03 Orthopaedics Outpatient in Bed Elective Panel 1 Procedure LRB Anes Op Region Wound Class Comments Right total hip arthroplasty , anterior approach Right Spinal Hip Class I - Clean Surgeon Surgeon Role Service Panel Mary Mckenzie MD Primary Orthopaedics 1 Special Needs Depuy Actis, omnitrac, midas joe, aquamantys and 1 liter beta rinse07/01/19 Reviewed kkm documented in this encounter Social History Tobacco [...] on file Legal Sex Female 4:33 AM LENS EDGE GRINDER MACHINE Gender Identity Not on file Sexual Orientation Not on file Occupation Industry Job Start Date Job End Date retired Not on file Not on file Not on file documented as of this encounter Last Filed Vital Signs Vital Sign Reading Time Taken Comments Blood Pressure 173/75 07/10/2019 8:30 AM LENS EDGE GRINDER MACHINE Pulse 56 07/10/2019 8:30 AM LENS EDGE GRINDER MACHINE Temperature 35.9 ??C (96.7 ??F) 07/10/2019 8:30 AM CS T Respiratory Rate 20 07/10/2019 8:30 AM LENS EDGE GRINDER MACHINE Oxygen Saturation 100% 07/10/2019 8:30 AM LENS EDGE GRINDER MACHINE Inhaled Oxygen Concentration - - Weight 97.8 kg (215 lb 9.8 oz) 07/10/2019 8:30 A M LENS EDGE GRINDER MACHINE Height 152.4 cm (5') 07/10/2019 8:30 AM LENS EDGE GRINDER MACHINE Body Mass Index 42.11 07/10/2019 8:30 AM LENS EDGE GRINDER MACHINE documented in this encounter Discharge Summaries * Hannah Emmanuel, PA - 07/12/2019 8:11 AM CST Inpatient Discharge Summary BRIEF OVERVIEW Admitting Provider: Mary Mckenzie MD Discharge Provider: Mary Mckenzie MD Primary Care Physician at Discharge: Pepper Morgan MD [phone] Admission Date: 07/10/2019 Discharge Date: 07/12/2019 Primary Discharge Diagnosis: right hip osteoarthritis status post total hip arthroplasty Secondary Discharge Diagnosis: Primary osteoarthritis of right hip DETAILS OF HOSPITAL STAY Presenting Problem/History of Present Illness: Primary osteoarthritis of right hip Hospital Course: Tess Benedict presented to the hospital and underwent a right total hip arthroplasty without any complications. She progressed well with physical therapy and met all objectives. Oral intake was tolerated well. Pain was well controlled with oral pain medication throughout the hospital stay. She was placed on ASA 325mg QD for DVT prophylaxis and discharged to home with family in stable condition. Test Results Pending at Discharge: Order Current Status Surgical pathology In process Operative Procedures Performed: Procedure(s): Right total hip arthroplasty, anterior approach Discharge Details Physical Exam at Discharge: Discharge Condition: stable Pulse: 75 Resp: 18 BP: (!) 187/96 Temp: 36.2 ??C (97.1 ??F) Weight: 97.8 kg (215 lb 9.8 oz) Discharge Disposition: Discharge to home, home health skilled care Discharge Instructions: Patient is continue with activity and weight-bearing as tolerated. Continue to keep the wound cleanand dry for 5 days. May shower on the 5th day. To perform p.r.n. dressing changes thereafter. Continue outpatient physical therapy. Discharge Medications: Your medication list START taking these medications ascorbic acid 500 mg tablet,chewable Commonly known as: VITAMIN C Take 1 tablet/chew tab (500 mg total) by mouth daily ferrous sulfate 325 mg (65 mg of elemental iron) tablet Take 1 tablet (325 mg total) by mouth daily with breakfast ondansetron ODT 4 mg disintegrating tablet Commonly known as: ZOFRAN-ODT Take 1 tablet (4 mg total) by mouth every 6 (six) hours as needed for nausea or vomiting oxyCODONE-acetaminophen 5-325 mg per tablet Commonly known as: PERCOCET Take 1-2 tablets by mouth every 4 (four) hours as needed for pain senna-docusate 8.6-50 mg Commonly known as: PERICOLACE Take 2 tablets by mouth 2 (two) times a day CONTINUE taking these medications felodipine 5 mg 24 hr tablet Commonly known as: PLENDIL Take 1 tablet (5 mg total) by mouth daily pantoprazole DR 20 mg EC tablet Commonly known as: PROTONIX Take 1 tablet (20 mg total) by mouth daily With the largest meal pramipexole 0.125 mg tablet Commonly known as: MIRAPEX Take 1-2 tablets by mouth every day propranolol 20 mg tablet Commonly known as: INDERAL Take 1 tablet (20 mg total) by mouth 2 (two) times a day spironolactone 25 mg tablet Commonly known as: Aldactone Take 1 tablet (25 mg total) by mouth daily Vitamin D3 2,000 unit tablet Generic drug: cholecalciferol STOP taking these medications naproxen 220 mg tablet Commonly known as: ALEVE ASK your doctor about these medications aspirin 325 mg enteric coated tablet Take 1 tablet (325 mg total) by mouth 2 (two) times a day for 28 days. Ask about: Which instructions should I use? aspirin 325 mg enteric coated tablet Take 1 tablet (325 mg total) by mouth daily Ask about: Which instructions should I use? Outpatient Follow-Up: Future Appointments Date Time Provider Department Center 07/24/2019 9:00 AM TEO Kern [facility] MG Decent 08/26/2019 9:00 AM Jacqueline Fuller NP [facility] IM PSA Decent 11/18/2019 9:00 AM Pepper Morgan MD [facility] IM PSA Decent Cosigned by Mary Mckenzie MD at 07/12/2019 2:25 PM LENS EDGE GRINDER MACHINE EDGE GRINDER MACHINE EDGE GRINDER MACHINE * Kathie Cxo PA - 07/11/2019 8:03 AM CST Inpatient Discharge Summary BRIEF OVERVIEW Admitting Provider: Mary Mckenzie MD Discharge Provider: Mary Mckenzie MD Primary Care Physician at Discharge: Pepper Morgan MD [phone] Admission Date: 07/10/2019 Discharge Date: 07/11/2019 Primary Discharge Diagnosis: right hip osteoarthritis status post total hip arthroplasty Secondary Discharge Diagnosis: Primary osteoarthritis of right hip DETAILS OF HOSPITAL STAY Presenting Problem/History of Present Illness: Primary osteoarthritis of right hip Hospital Course: Tess Benedict presented to the hospital and underwent a right total hip arthroplasty without any complications. She progressed well with physical therapy and met all objectives. Oral intake was tolerated well. Pain was well controlled with oral pain medication throughout the hospital stay. She was placed on Aspirin 325 daily for DVT prophylaxis and discharged to home in stable condition. Test Results Pending at Discharge: @DCPENDLAB@ Operative Procedures Performed: Procedure(s): Right total hip arthroplasty, anterior approach Discharge Details Physical Exam at Discharge: Discharge Condition: stable Pulse: 66 Resp: 18 BP: 146/80 Temp: 37.4 ??C (99.3 ??F) Weight: 97.8 kg (215 lb 9.8 oz) Discharge Disposition: Discharge to home, home health skilled care Discharge Instructions: Patient is continue with activity and weight-bearing as tolerated. Continue to keep the wound cleanand dry for 5 days. May shower on the 5th day. To perform p.r.n. dressing changes thereafter. Continue outpatient physical therapy. Discharge Medications: Your medication list START taking these medications ascorbic acid 500 mg tablet,chewable Commonly known as: VITAMIN C Take 1 tablet/chew tab (500 mg total) by mouth daily ferrous sulfate 325 mg (65 mg of elemental iron) tablet Take 1 tablet (325 mg total) by mouth daily with breakfast ondansetron ODT 4 mg disintegrating tablet Commonly known as: ZOFRAN-ODT Take 1 tablet (4 mg total) by mouth every 6 (six) hours as needed for nausea or vomiting oxyCODONE-acetaminophen 5-325 mg per tablet Commonly known as: PERCOCET Take 1-2 tablets by mouth every 4 (four) hours as needed for pain senna-docusate 8.6-50 mg Commonly known as: PERICOLACE Take 2 tablets by mouth 2 (two) times a day CONTINUE taking these medications felodipine 5 mg 24 hr tablet Commonly known as: PLENDIL Take 1 tablet (5 mg total) by mouth daily pantoprazole DR 20 mg EC tablet Commonly known as: PROTONIX Take 1 tablet (20 mg total) by mouth daily With the largest meal pramipexole 0.125 mg tablet Commonly known as: MIRAPEX Take 1-2 tablets by mouth every day propranolol 20 mg tablet Commonly known as: INDERAL Take 1 tablet (20 mg total) by mouth 2 (two) times a day spironolactone 25 mg tablet Commonly known as: Aldactone Take 1 tablet (25 mg total) by mouth daily Vitamin D3 2,000 unit tablet Generic drug: cholecalciferol STOP taking these medications naproxen 220 mg tablet Commonly known as: ALEVE ASK your doctor about these medications aspirin 325 mg enteric coated tablet Take 1 tablet (325 mg total) by mouth 2 (two) times a day for 28 days. Ask about: Which instructions should I use? aspirin 325 mg enteric coated tablet Take 1 tablet (325 mg total) by mouth daily Ask about: Which instructions should I use? Outpatient Follow-Up: Future Appointments Date Time Provider Department Center 07/24/2019 9:00 AM TEO [facility] MG Decent 08/26/2019 9:00 AM Jacqueline Fuller NP [facility] IM PSA Decent 11/18/2019 9:00 AM Pepper Morgan MD [facility] PSA Decent @EMIR@ Cosigned by Mary Mckenzie MD at 07/11/2019 11:14 AM LENS EDGE GRINDER MACHINE EDGE GRINDER MACHINE EDGE GRINDER MACHINE documented in this encounter Discharge Instructions * Discharge Instr - Other Orders* Estephanie Juan RN - 07/12/2019 4:09 PM LENS EDGE GRINDER MACHINE The following Home Health agencies has been contacted regarding this referral: [facility]. Referral was accepted by [place]. Patient was instructed to call [facility] at if she has not been contacted within 24-48 hours of discharge from the hospital EDGE GRINDER MACHINE * Attachments The following attachments cannot be sent through Care Everywhere. * Ascorbic Acid (Vitamin C) (By mouth) ([place]) * Aspirin (By mouth) ([place]atem[place]) * Iron Supplements (By mouth) ([place]atem[place]) * Senna (By mouth) ([place]atem[place]) * Ondansetron (By mouth, Into the mouth) ([place]atem[place]) * Hydrocodone/Acetaminophen (By mouth) ([place]atem[place]) documented in this encounter Medications at Time of Discharge cholecalciferol (VITAMIN D-3) 2000 unit tablet Take 1 tablet (2,000 Units total) by mouth daily ascorbic acid (VITAMIN C) 500 mg tablet,chewableIndic ations:Vitamin deficiency prevention Take 1 tablet/chew tab (500 mg total) by mouth daily 30 tablet/chew tab 07/11/2019 1 aspirin 325 mg enteric coated tabletIndications:De ep [...] needed for pain 60 tablet 07/12/2019 0 ondansetron ODT (ZOFRAN-ODT) 4 mg disintegrating tabletIndications:na usea and vomiting Take 1 tablet (4 mg total) by mouth every 6 (six) hours as needed for nausea or vomiting 20 tablet 07/11/[address] (PROTONIX) 20 [...] tablet 2 05/14/2019 0 senna-docusate (PERICOLACE) 8.6-50 mgIndications:edmund mayes Take 2 tablets by mouth 2 (two) times a day 30 tablet 07/11/2019 0 spironolactone (ALDACTONE) 25 mg tabletIndications:Be nign hypertension Take 1 tablet (25 mg total) by mouth daily 30 tablet 6 05/14/2019 0 documented as of this encounter Ordered Prescriptions Prescription Sig Dispense Quantity Refills Last Filled Start Date End Date HYDROcodone-acetamin ophen (NORCO) 5-325 mg per tabletIndications:Pa in Take 1-2 tablets by mouth every 4 (four) hours as needed for pain 60 tablet 07/12/2019 0 senna-docusate (PERICOLACE) 8.6-50 mgIndications:edmund mayes Take 2 tablets by mouth 2 (two) times a day 30 tablet 07/11/2019 0 oxyCODONE-acetaminop hen (PERCOCET) 5-325 mg per tabletIndications:Pa in Take 1-2 tablets by mouth every 4 (four) hours as needed for pain 60 tablet 07/11/2019 0 ondansetron ODT (ZOFRAN-ODT) 4 mg disintegrating tabletIndications:na usea and vomiting Take 1 tablet (4 mg total) by mouth every 6 (six) hours as needed for nausea or vomiting 20 tablet 07/11/2019 0 ferrous sulfate 325 mg (65 mg of elemental iron) tabletIndications:Ir on Deficiency Anemia,Anemia prevention Take 1 tablet (325 mg total) by mouth daily with breakfast 30 tablet 07/11/2019 0 aspirin 325 mg enteric coated tabletIndications:De ep Vein Thrombosis Prevention Take 1 tablet (325 mg total) by mouth daily 42 tablet 07/11/2019 0 ascorbic acid (VITAMIN C) 500 mg tablet,chewableIndic ations:Vitamin deficiency prevention Take 1 tablet/chew tab (500 mg total) by mouth daily 30 tablet/chew tab 07/11/2019 1 documented in this encounter Discharge Disposition Disposition Code Departure Means Destination Discharge to home or self care documented in this encounter Progress Notes * Greg Mims, DRYWALL PROFESSIONAL - 07/12/2019 1:44 PM CST Physical Therapy 07/12/19 1315 PT Last Visit Session Type Treatment PT Received On 07/12/19 Precautions Precautions Hip: Anterior RLE Weight Bearing WBAT Pain Assessment Pain Assessment 0-10 Pain Score 5 - Moderate pain Pain Location Hip Pain Orientation Right Cognition Overall Cognitive Status WFL Supine Supine-Exercises Right;Lower extremity Reps/Sets 15 Supine-Motion AROM Bed Mobility 1 Bed Mobility From 1 Supine Bed Mobility Type 1 To and from Bed Mobility to 1 Edge of bed Level of Assistance 1 Minimum Assist Transfer 1 Transfer From 1 Sit Transfer Type 1 To and from Transfer to 1 Stand Transfer Device 1 Wheeled walker Transfer Level of Assistance 1 Standby Assist Ambulation 1 Distance (ft) 1 130' Surface 1 Level tile Device 1 Wheeled walker Assistance 1 Standby Assist;Independent Plan Plan If this is the last note, consider this the discharge summary Recommendation/Plan PT Recommendation/Plan Home with family EDGE GRINDER MACHINE Kasia Carpio MSW - 07/12/2019 10:44 AM CST 07/12/19 1043 Basic Mobility - 6 Click How much difficulty does the patient have: Turning over in bed 4 How much difficulty does the patient currently have: Sitting down and standing up from a chair witharms? 4 How much difficulty does the patient have: Moving from lying on back to sitting on the side of the bed? 3 How much difficulty does the patient have: Moving to and from a bed to a chair including wheelchair? 3 How much help does the patient currently need: Walk in hospital room? 3 How much help from another person does the patient currently need: Climbing 3-5 steps with a railing? 3 Total Score (range 6-24) 20 EDGE GRINDER MACHINE * Kasia Perez MSW - 07/12/2019 10:29 AM CST Sw met with pt and daughter Florinda for dc plans. Pt lives alone and daughter/son are supportive. DRYWALL PROFESSIONAL evaluated and recommended return home with [facility] PT. Pt's preference is [facility]. Pt denied the needfor information on community resources. Pt son will be staying with pt when dc'd. If this is the last note consider it to be the dc summary. 07/12/19 1026 Information Information Obtained From Patient Referral Data Referral Source Physician Referral Reason Discharge Planning Prior to Admission Primary Caregiver Self Support System Parent Support system contact info (name, phone, availablity) Daughter Florinda and son Durable Medical Equipment Walker (wheeled);Cane (single prong) Living Arrangements Alone Type of Residence Private residence ([facility]) Steps in home? Yes, Outside of home Number of steps outside: 3 steps Financial Resource Income Longterm/Pension Potential Discharge Needs Home Health Physical therapy Patient expects to be discharged to: Private residence Dialysis No Behavioral Health Services No EDGE GRINDER MACHINE * Kasia Perez PESTICIDE CONTROL INSPECTOR - 07/12/2019 10:25 AM CST 07/12/19 1021 Communications Patient choice (Home Health/Hospice) list given to patient/enrollment eligibility representative? Yes ([facility] is pt's choice.) Fiduciary Responsibility Patient/Designated decision maker was informed of [facility] fiduciary relationship as necessary EDGE GRINDER MACHINE * Greg Mims, DRYWALL PROFESSIONAL - 07/12/2019 9:39 AM CST Physical Therapy 07/12/19 0815 PT Last Visit Session Type Treatment PT Received On 07/12/19 Precautions Precautions Hip: Anterior RLE Weight Bearing WBAT Pain Assessment Pain Assessment 0-10 Pain Score 5 - Moderate pain Pain Location Hip Pain Orientation Right Cognition Overall Cognitive Status WFL Supine Supine-Exercises Right;Lower extremity Reps/Sets 15 Supine-Motion AROM Bed Mobility 1 Bed Mobility From 1 Supine Bed Mobility Type 1 To and from Bed Mobility to 1 Edge of bed Level of Assistance 1 Minimum Assist Transfer 1 Transfer From 1 Sit Transfer Type 1 To and from Transfer to 1 Stand Transfer Device 1 Wheeled walker Transfer Level of Assistance 1 Standby Assist;Independent Ambulation 1 Distance (ft) 1 200' Surface 1 Level tile Device 1 Wheeled walker Assistance 1 Standby Assist;Independent Ambulation Comments 1 Also performed car transfer Stairs Number of Stairs 1 6 Rails 1 Bilateral Assistance 1 Contact Guard Assist Plan Plan If this is the last note, consider this the discharge summary Recommendation/Plan PT Recommendation/Plan Home with family;Home Health PT EDGE GRINDER MACHINE * Evelyn Liang, OT - 07/12/2019 8:19 AM CST Occupational Therapy 07/12/19 0730 General Session Type Treatment OT Received On 07/12/19 Subjective Agreeable to Therapy Family/Caregiver Present No Pain Assessment Pain Score 6 Pain Location Hip Pain Orientation Right Grooming Grooming: Where assessed Standing at sink Grooming: Equipment utilized (w/w) Grooming: Level of assistance Standby Assist (close SBA, LOB x2 but pt. able to self correct ) Grooming: Assistance with Wash/dry face;Wash/dry hands;Teeth care;Brushing hair Bathing Bathing: Where assessed Standing (at sink ) Bathing: Level of assistance Standby Assist Bathing: Assistance with (washed UE and dagoberto area ) UE Dressing UE Dressing: Where assessed (standing at sink with w/w ) UE Dressing: Level of assistance Standby Assist UE Dressing: Assistance with (pt. don bra and pullover shirt ) LE Dressing LE Dressing: Where assessed Other (Comment) (sitting on BSC at sink ) LE Dressing: Level of assistance Moderate Assist LE Dressing: Assistance with Thread RLE into pants;Thread LLE into pants;Thread RLE into underwear;Thread LLE into underwear LE Dressing: Equipment Utilized (pt. educated on how to use outpatient interviewing clerk and sock aid for LE dress) Toileting Toileting: Where assessed Toilet Toileting: Equipment utilized (w/w) Toileting: Level of assistance Modified Independent Toileting: Assistance with (completed clothing management and anterior hygiene ) Transfers Transfer (room mobility SBA using w/w, requires increased time ) Toilet Transfers Toilet Transfer From (chair ) Toilet Transfer Type To and from Toilet Transfer to Raised toilet seat with rails Toilet Transfer Technique Ambulating Toilet Transfer: Equipment Wheeled walker Toilet Transfers Supervision Other Comments Comments Therapist educated patient on and gave demonstration of how to use outpatient interviewing clerk and sock aid for LE dressing. Patient reports understanding. Issued outpatient interviewing clerk and sock aid for independence/safety athome Plan Plan Continue with current plan;If this is the last note, consider this the discharge summary Recommendation/Plan OT Recommendation Home with family (pt. will have daughter and son staying with her ) OT Recommendation/Plan Comments family will be staying with patient EDGE GRINDER MACHINE * Hannah Emmanuel PA - 07/12/2019 8:10 AM CST Orthopedic Total Hip Progress Note Assessment/Plan Status post-right total hip arthroplasty: Doing well postoperatively. Nausea resolved from yesterday. Pain well controlled on [place]. Continues current post-op course. Home on discharge today with family. Pt is to continue on [id number] daily for DVT prophylaxis and is to follow up two weeks following surgery for the initial postoperative appointment. Activity: up with assistance Weight Bearing: WBAT LOS: 0 days Subjective Post-Operative Day: 2 post-right total hip arthroplasty Systemic or Specific Complaints: No Complaints. Denies any chest pain, shortness of breath, nausea or vomiting. Pt is progressing well with physical therapy and is ambulating with the use of a wheeled walker. Pt reports moderate pain, which is well controlled with prescribed oral narcotics. Objective Vital signs in last 24 hours: Temp: [36.2 ??C (97.1 ??F)-36.7 ??C (98 ??F)] 36.2 ??C (97.1 ??F) Pulse: [65-91] 75 Resp: [14-20] 18 BP: (126-189)/(64-96) 187/96 General: appears stated age, cooperative and no distress Neurovascular: NV intact Wound: Wound clean and dry no evidence of infection. Range of Motion: Limited due to post op state DVT Exam: No evidence of DVT seen on physical exam. Data Review CBC: Recent Labs Lab Units 07/12/19 0306 WBC K/cumm 9.8 RBC M/cumm 4.20 HEMOGLOBIN g/dL 11.6* HEMATOCRIT % 36.7 TEO Mcmillan Date: 07/12/2019 Time: 8:10 AM Cosigned by Mary Mckenzie MD at 07/12/2019 2:26 PM LENS EDGE GRINDER MACHINE EDGE GRINDER MACHINE EDGE GRINDER MACHINE * Milly Mcgarry RD - 07/11/2019 4:40 PM CST Nutrition Assessment Reason for Assessment: Initial Nutrition Assessment Encounter Date: 07/11/19 4:44 PM Nutrition Assessment and Plan: Patient is a 83 y.o. female. Admit Dx: UNILATERAL PRIMARY OSTEOARTHRITIS, RIGHT HIP/NH TOTAL HIP ARTHROPLASTY. Admitted on 07/10/2019, current LOS is 0 days. Nutrition Screen What diet do you follow at home?: regular Have You Recently Lost Weight Without Trying?: No Poor Oral Intake for Four or More Days Prior to Admission: No Current diet order: Adult Diet Regular Adult Discharge Diet Pt intake is inconsistent. PO intakes: bites-100%. Wt Readings from Last 10 Encounters: 07/10/19 97.8 kg (215 lb 9.8 oz) 06/27/19 88.5 kg (195 lb 3.2 oz) 06/24/19 88.5 kg (195 lb) 05/14/19 86.6 kg (191 lb) 03/27/19 88.5 kg (195 lb) 03/19/19 87.5 kg (193 lb) 03/11/19 87.5 kg (193 lb) 11/20/18 86.6 kg (191 lb) 10/30/18 86.6 kg (191 lb) 05/15/18 88 kg (194 lb) Nutrition Diagnosis 1: ( Regular. Bjites-100%. ) Related to: Wounds Evidenced by: Physical finding Interventions: [place] diet preferences within the limits of nutrition care order, Encouragement Monitoring and Evaluation: Blood glucoses, Discharge plans, Plan of care, PO intake, Labs, Supplement tolerance, Wound healing( Rk BID. Ensure ENlive with meals. ) ?? Goals: Oral intake to meet 75% estimated nutritional needs by next assessment, Adequate nutrition to meet estimated needs by next assessment Estimated needs: ?? Total Kcal/kg Estimated Needs : 1760.4 based on Kcal/k. Type of Weight Used for Estimated Kcals: Current ?? [place] Total Energy Needs: 1773.2 kcal using Activity Factor: 1.3 ?? [facility] Total Energy Needs + Fever Factor: 1773.2 ?? Total Protein Estimated Needs (gm): 97.8 Protein Needs Based on g/k.0 Type of Weight Used for Estimated Protein : Current. ?? Total Fluid Estimated Needs: 2445 Fluid Needs Based on : 25 ml/kg. Objective Anthropometrics Weight: 97.8 kg (215 lb 9.8 oz) Admission Weight : 97.8 kg Weight Change: 9.25 kg (20.41 lbs) IBW/kg (Calculated) : 45.4 kg Height: 152.4 cm (5') Weight in (lb) to have BMI = 25: 127.7 BMI (Calculated): 42.1 3 Day I/O Summary 07/09 1899 - 07/11 0659 In: 3345 [P.O.:320; I.V.:3025] Out: 100 Temp: 36.7 ??C (98 ??F) Past Medical History: Diagnosis Date ??? Arthritis [...] ??? Tobacco use 1-2ppd x 35yrs quit Medications and Lab Review: Scheduled Meds: amLODIPine, 5 mg, oral, Daily ascorbic acid, 500 mg, oral, Daily aspirin, 325 mg, oral, Daily cholecalciferol, 2,000 Units, oral, Daily famotidine, 10 mg, oral, Nightly ferrous sulfate, 65 mg of elemental iron, oral, Daily with breakfast oxyCODONE ER, 10 mg, oral, Q12H GLORIA pantoprazole DR, 40 mg, oral, Daily pramipexole, 0.125 mg, oral, Daily propranolol, 20 mg, oral, BID senna-docusate, 2 tablet, oral, BID sodium chloride 0.9%, 0.5-20 mL, intra-catheter, Q8H GLORIA spironolactone, 25 mg, oral, Daily Continuous Infusions: sodium chloride 0.9%, 125 mL/hr, Last Rate: 125 mL/hr (07/10/19 1714) Sodium Date Value Ref Range Status 07/11/2019 130 (L) 135 - 145 mmol/L Final Potassium, pl Date Value Ref Range Status 07/11/2019 4.2 3.3 - 4.9 mmol/L Final BUN Date Value Ref Range Status 07/11/2019 16 8 - 25 mg/dL Final Creatinine Date Value Ref Range Status 07/11/2019 1.32 (H) 0.60 - 1.10 mg/dL Final Calcium Date Value Ref Range Status 07/11/2019 8.3 (L) 8.5 - 10.3 mg/dL Final Lab Results Component Value Date HGBA1C 5.1 07/01/2019 POC Glucose: Results for TESS BENEDICT I ( ) as of 07/11/2019 16:41 Ref. Range 07/10/2019 13:57 07/11/2019 03:18 Glucose Latest Ref Range: 70 - 199 mg/dL 279 (H) Nursing Assessment: Emesis Assessment Emesis Color/Appearance: Bilious, Undigested food Tam Scale Score: 20 Skin Integrity: Surgical incision Diet Instructions Adult Discharge Diet Diet Type: Return to previous diet Nutrition Follow-Up : 07/15/[address],LDN EDGE GRINDER MACHINE * Greg Mims, DRYWALL PROFESSIONAL - 07/11/2019 2:52 PM CST Physical Therapy 07/11/19 1420 PT Last Visit Session Type Treatment PT Received On 07/11/19 Precautions Precautions Hip: Anterior RLE Weight Bearing WBAT Pain Assessment Pain Assessment 0-10 Pain Score 5 - Moderate pain Pain Location Hip Pain Orientation Right Cognition Overall Cognitive Status WFL Supine Supine-Exercises Right;Lower extremity Reps/Sets 15 Supine-Motion AROM Supine-Exercise Comments HEP dispensed Bed Mobility 1 Bed Mobility From 1 Supine Bed Mobility Type 1 To and from Bed Mobility to 1 Edge of bed Level of Assistance 1 Minimum Assist Transfer 1 Transfer From 1 Sit Transfer Type 1 To and from Transfer to 1 Stand Transfer Device 1 Wheeled walker Transfer Level of Assistance 1 Standby Assist;Contact Guard Assist Ambulation 1 Distance (ft) 1 100' Surface 1 Level tile Device 1 Wheeled walker Assistance 1 Contact Guard Assist;Standby Assist Stairs Stairs Yes Stairs Number of Stairs 1 4 Rails 1 Bilateral Assistance 1 Minimum Assist Plan Plan If this is the last note, consider this the discharge summary Recommendation/Plan PT Recommendation/Plan [facility] Facility EDGE GRINDER MACHINE * Evelyn Liang, OT - 07/11/2019 11:16 AM CST Occupational Therapy 07/11/19 1021 General Chart Reviewed Yes Session Type Evaluation OT Received On 07/11/19 Subjective Agreeable to Therapy Family/Caregiver Present No Occupational Therapy-Patient Goal return home Precautions Precautions Hip: Anterior RLE Weight Bearing WBAT Home Living Type of Home [facility]/[place] ([facility] ) Bathroom Shower/Tub Walk-in shower with threshold Bathroom Toilet Raised Bathroom Equipment Built-in shower seat Home Mobility Equipment Wheeled walker Additional Comments uses w/w recently Prior Function Level of [place] Independent with ADLs;Independent functional transfers;Independent with ambulation;Independent with homemaking with ambulation Lives With Alone Receives Help From Family (sister lives close and daughter will be staying with pt. ) Driving Yes ADL Assistance Independent Instrumental ADL (IADL) Assistance Independent Grooming Grooming: Where assessed Standing at sink Grooming: Equipment utilized (w/w) Grooming: Level of assistance Contact Guard Assist Grooming: Assistance with Wash/dry hands UE Dressing UE Dressing: Where assessed Chair UE Dressing: Level of assistance Minimum Assist UE Dressing: Assistance with Fasteners (fasteners on bra, patient usually puts on standing) LE Dressing LE Dressing: Where assessed Chair LE Dressing: Level of assistance Moderate Assist LE Dressing: Assistance with Thread RLE into pants;Thread LLE into pants;Thread RLE into underwear;Thread LLE into underwear Toileting Toileting: Where assessed Toilet Toileting: Equipment utilized (w/w) Toileting: Level of assistance Contact Guard Assist Toileting: Assistance with (gown management ) Toilet Transfers Toilet Transfer From (chair ) Toilet Transfer Type To and from Toilet Transfer to Raised toilet seat with rails Toilet Transfer Technique Ambulating Toilet Transfer: Equipment Wheeled walker Toilet Transfers Contact guard Toilet Transfers Comments using grab bar Pain Assessment Pain Score 3 Pain Location Hip Pain Orientation Right Cognition Overall Cognitive Status WFL Static Sitting Balance Static Sitting-Balance Support No upper extremity supported Static Sitting-Sitting Surface Chair Static Sitting-Level of Assistance Close supervision Dynamic Sitting Balance Dynamic Sitting-Balance Support No upper extremity supported Dynamic Sitting-Balance Forward lean Dynamic Sitting-Sitting Surface Chair Dynamic Sitting-Level of Assistance Close supervision Static Standing Balance Static Standing-Balance Support Bilateral upper extremity supported Static Standing-Standing Surface Floor Static Standing-Level of Assistance Contact guard Transfers Transfer (room mobility CGA using w/w ) Assessment Prognosis Good Problem List Decreased functional mobility;Decreased ADL independence Barriers to Discharge None Plan Plan Plan of care initiated;If this is the last note, consider this the discharge summary Recommendation/Plan OT Recommendation Home with family (daughter staying with patient ) OT Frequency Daily Treatment/Interventions ADL/IADL retraining;Functional mobility training OT Evaluation Complete Yes Multi-Disciplinary Problems (from Occupational Therapy) Active Problems Problem: Dressings Lower Extremities Start Date: 07/11/19 Goal Start Date End Date STG - Patient to complete lower body dressing 07/11/19 -- Goal Details: SBA using AE prn Problem: Grooming Start Date: 07/11/19 Goal Start Date End Date STG - Patient will complete grooming 07/11/19 -- Goal Details: MOD I standing at sink using w/w Problem: Transfers Start Date: 07/11/19 Goal Start Date End Date STG - Patient will perform toilet transfer 07/11/19 -- Goal Details: MOD I using w/w Problem: OT Misc Start Date: 07/11/19 Goal Start Date End Date OT STG - Misc 1 07/11/19 -- Goal Details: Pt. to perform functional room mobility/object retrieval MOD I for increased INDEP and safety at home. EDGE GRINDER MACHINE * Mary Alatorre, PT - 07/11/2019 9:22 AM CST Physical Therapy Evaluation 07/11/19 0812 General Chart Reviewed Yes Session Type Evaluation PT Received On 07/11/19 Safe Environment Arm Band Checked;Call Light within Reach;Patient found in Supine;Overbed Table within Reach Subjective Agreeable to Therapy Family/Caregiver Present No Physical Therapy-Patient Goal return home Precautions Precautions Fall risk;Hip: Anterior Weight Bearing Restrictions Yes RLE Weight Bearing WBAT Home Living Type of Home [facility] Home Layout One level Home Access Stairs to enter with rails Entrance Stairs-Rails Both Entrance Stairs-Number of Steps 3 Home Mobility Equipment Wheeled walker;Single point cane Prior Function Level of [place] Independent with ADLs;Independent functional transfers;Independent with ambulation Lives With Alone (dtr will be staying w mother a few days, then friend to help) Receives Help From Family;Friend(s) Driving Yes Fall within the last 6 months Yes Fall within the last 6 months comment no injury reported Pain Assessment Pain Assessment 0-10 Pain Score 0 - No pain Pain Type Surgical pain Pain Location Hip Pain Orientation Right Cognition Overall Cognitive Status WFL Orientation Oriented X4 (person, place, time, situation) Balance Balance Yes Static Sitting Balance Static Sitting-Balance Support Bilateral upper extremity supported;Feet supported Static Sitting-Sitting Surface Bed Static Sitting-Level of Assistance Close supervision Static Standing Balance Static Standing-Balance Support Bilateral upper extremity supported Static Standing-Standing Surface Floor Static Standing-Level of Assistance Contact guard;Minimum assistance Bed Mobility 1 Bed Mobility From 1 Supine Bed Mobility Type 1 To Bed Mobility to 1 Edge of bed Level of Assistance 1 Minimum Assist Transfer 1 Transfer From 1 Bed Transfer Type 1 To Transfer to 1 Stand Technique 1 Sit to stand;Stand to sit Transfer Device 1 Wheeled walker Transfer Level of Assistance 1 Minimum Assist Ambulation 1 Distance (ft) 1 15' x 2 Surface 1 Level tile Device 1 Wheeled walker Assistance 1 Minimum Assist Gait: Requires assist with 1 Maintaining balance Gait: Requires verbal cues to 1 Use assistive device safely;Utilize appropriate gait sequencing Quality of Gait 1 dec; distance, step length, foot clearance Ambulation Comments 1 fall risk RLE Assessment RLE Assessment (NT) LLE Assessment LLE Assessment WFL Other Comments Other PT Comments Pt lives alone. Pt states that her daughter will be there for 1-2 nights and she also states that she has a friend that will be able to stay with her for periods throughout the day.Pt remains nauseated and vomited while being evaluated. Yesterday pt was unable to be seen due to nausea and vomiting. This pt I believe will benefit from going to a snf initially to become more medically stable and to improve w her functional mobility. I believe that going to a snf will get the most beneficial outcome for this patient. Assessment Prognosis Good Problem List Gait deviations;Decreased strength;Decreased mobility (remains nauseated, vomited during treatment) Plan Plan Plan of care initiated;If this is the last note, consider this the discharge summary Recommendation/Plan PT Recommendation/Plan [facility] Facility PT Frequency Daily;Twice a day Treatment/Interventions Bed mobility;Functional transfer training;Gait training;Stair training;Therapeutic exercise PT Equipment Recommended None (owns a cane and a fww) PT Evaluation Complete Yes Multi-Disciplinary Problems (from Physical Therapy) Active Problems Problem: [place] [facility]: 07/11/19 Goal Start Date End Date PT [facility] 1 07/11/19 -- Goal Details: Pt to be indep>cga with bed mobility consistently to increase functional mobility. Goal Start Date End Date PT [facility] 2 07/11/19 -- Goal Details: Pt to be cga>sba with all transfers consistently to increase functional mobility. Goal Start Date End Date PT [facility] 3 07/11/19 -- Goal Details: Pt to ambulate 75-100' cga with fww consistently, to increase functional mobility. Goal Start Date End Date PT [facility] 4 07/11/19 -- Goal Details: Pt to ascend/descend 4 steps min assist consistently to increase functional independence. EDGE GRINDER MACHINE * Kathie Cox PA - 07/11/2019 7:58 AM CST Orthopedic Total Hip Progress Note Assessment/Plan Status post-right total hip arthroplasty: Doing well postoperatively. Has not been up with therapy yet Continues current post-op course. Home on discharge today pending clearance with PT. Pt is to continue on Aspirin 325 daily for DVT prophylaxis and is to follow up two weeks following surgery for theinitial postoperative appointment. Activity: up with assistance Weight Bearing: WBAT LOS: 0 days Subjective Post-Operative Day: 1 post-right total hip arthroplasty Systemic or Specific Complaints: No Complaints. Denies any chest pain, shortness of breath, nausea or vomiting. Pt is progressing well with physical therapy and is ambulating with the use of a wheeled walker. Pt reports moderate pain, which is well controlled with prescribed oral narcotics. Objective Vital signs in last 24 hours: Temp: [35.9 ??C (96.7 ??F)-37.4 ??C (99.3 ??F)] 37.4 ??C (99.3 ??F) Pulse: [50-91] 66 Resp: [11-24] 18 BP: (110-173)/(55-91) 146/80 General: appears stated age, cooperative and no distress Neurovascular: NV intact Wound: Wound clean and dry no evidence of infection. Range of Motion: Limited due to post op state DVT Exam: No evidence of DVT seen on physical exam. Data Review CBC: Recent Labs Lab Units 07/11/19 0318 WBC K/cumm 11.3* RBC M/cumm 4.46 HEMOGLOBIN g/dL 12.3 HEMATOCRIT % 39.1 TEO [place] Date: 07/11/2019 Time: 7:59 AM Cosigned by Mary Mckenzie MD at 07/11/2019 11:14 AM LENS EDGE GRINDER MACHINE EDGE GRINDER MACHINE EDGE GRINDER MACHINE * Mary Alatorre, PT - 07/10/2019 5:03 PM CST Physical Therapy- missed treatment 07/10/19 1630 General PT Missed Visit Reason Patient declined;Family declined (pt nauseated, unable to keep any food down) EDGE GRINDER MACHINE documented in this encounter H&P Notes * Mary Mckenzie MD - 07/10/2019 9:33 AM CST I have reviewed the H&P, examined the patient, and endorse the findings as written. Plan of Care : Based on the above findings, I consider Tess Benedict to be an acceptable risk for : Procedure(s): Right total hip arthroplasty, anterior approach Depuy Actis, omnitrac, midas joe, aquamantys and 1 liter beta rinse EDGE GRINDER MACHINE Source Note - Mary Mckenzie MD - 06/27/2019 9:30 AM LENS EDGE GRINDER MACHINE Images from the original note were not [...] Views Severe advanced right hip osteoarthritis with ancq-sm-gxys contact, osteophyte formation, subluxation. Assessment/Plan Tess was [...] will likely require inpatient rehab following surgery. Mary Mckenzie MD EDGE GRINDER MACHINE documented in this encounter Nursing Notes * Cora Maguire, XU - 07/12/2019 4:42 PM CST Pt and daughter received discharge instructions and all questions were answered. Pt was given paperprescriptions to bring to local pharmacy. Pt was assisted to personal vehicle by wheelchair with all belongings in hand. EDGE GRINDER MACHINE documented in this encounter Miscellaneous Notes * Plan of Care - Cora Maguire RN - 07/12/2019 4:41 PM LENS EDGE GRINDER MACHINE Problem: Health Behavior: Goal: Understanding of discharge [...] for Discharge Problem: Activity: Goal: Ability to avoid complications of mobility impairment will improve Outcome: Adequate for Discharge Goal: Ability to ambulate will improve Outcome: Adequate for Discharge Goal: Ability to perform rehabilitation exercises will improve Outcome: Adequate for Discharge Problem: Lack of Knowledge: Goal: Verbalization of understanding the information provided will improve Outcome: Adequate for Discharge Problem: Physical Regulation: Goal: Ability to maintain clinical measurements within normal limits will improve Outcome: Adequate for Discharge Goal: Postoperative complications will be avoided or minimized Outcome: Adequate for Discharge Goal: Diagnostic test results will improve Outcome: Adequate for Discharge Problem: Safety: Goal: Will remain free from falls Outcome: Adequate for Discharge Problem: Self-Care: Goal: Ability to meet self-care needs will improve Outcome: Adequate for Discharge Problem: Sensory: Goal: Pain level will decrease Outcome: Adequate for Discharge Problem: Skin Integrity: Goal: Signs of wound healing will improve Outcome: Adequate for Discharge Goal: Will remain free from infection Outcome: Adequate for Discharge Goal: Risk for impaired skin integrity will decrease Outcome: Adequate for Discharge Goals: Clinical Goals for the Shift: VSS, pain control, good itnake and output, and remain free from injury Summary: VSS, pain control, good intake and output, up with assist, dressing is clean dry and intact, and has no other complaints EDGE GRINDER MACHINE * Plan of Care - Jake Gomes RN - 07/12/2019 4:02 PM CST [facility] is unable to accept this patient at this time due to time availability & pt safety. Patient and Unloader Operator made aware. The following Home Health agencies has been contacted regarding this referral: [facility]. Referral was accepted by [facility]. Patient was instructed to call [facility] at if she has not been contacted within 24-48 hours of discharge from the hospital. EDGE GRINDER MACHINE * Plan of Care - Sadia Rocha RN - 07/12/2019 3:24 PM CST Referral sent to [facility] for RN/PT/Lopez and Jake, with [facility], has been notified. EDGE GRINDER MACHINE * Plan of Care - Greg Mims PTA - 07/12/2019 1:45 PM CST Problem: PT Misc Goal: PT STG - Misc 1 Description Pt to be indep>cga with bed mobility consistently to increase functional mobility. 07/12/2019 1345 by Greg Mims PTA Outcome: Progressing 07/12/2019 0939 by Greg Mims PTA Outcome: Progressing Problem: PT Misc Goal: PT STG - Misc 2 Description Pt to be cga>sba with all transfers consistently to increase functional mobility. Outcome: Completed Goal: PT STG - Misc 3 Description Pt to ambulate 75-100' cga with fww consistently, to increase functional mobility. Outcome: Completed EDGE GRINDER MACHINE * Plan of Care - Greg Mims PTA - 07/12/2019 9:40 AM CST Problem: PT Misc Goal: PT STG - Misc 1 Description Pt to be indep>cga with bed mobility consistently to increase functional mobility. Outcome: Progressing Problem: PT Misc Goal: PT STG - Misc 2 Description Pt to be cga>sba with all transfers consistently to increase functional mobility. Outcome: Completed Goal: PT STG - Misc 3 Description Pt to ambulate 75-100' cga with fww consistently, to increase functional mobility. Outcome: Completed Bed Mobility: Supine to EOB min assist Transfers: sit to stand sba/Independent Gait: Ambulated 200' with w/w sba/Independent. Up/down 6 steps with bilateral rails. Recommend home with family and Home PT. Daughter and son coming to stay with patient for awhile EDGE GRINDER MACHINE * Plan of Care - Evelyn Liang OT - 07/12/2019 8:20 AM CST Problem: Dressings Lower Extremities Goal: STG - Patient to complete lower body dressing Description SBA using AE prn Outcome: Progressing Problem: Grooming Goal: STG - Patient will complete grooming Description MOD I standing at sink using w/w Outcome: Progressing Problem: Transfers Goal: STG - Patient will perform toilet transfer Description MOD I using w/w Outcome: Progressing Problem: OT Misc Goal: OT STG - Misc 1 Description Pt. to perform functional room mobility/object retrieval MOD I for increased INDEP and safety at home. Outcome: Progressing EDGE GRINDER MACHINE * Plan of Care - Benita Tuttle RN - 07/12/2019 4:20 AM CST Goals: Clinical Goals for the Shift: vitals stable, pain control, remain free from injury Summary: Patient alert and oriented, vitals stable. Medicated 3 times for pain with adequate relief. Tolerating diet and no complaints of nausea. Ambulating well with walker and one assist. Voiding without difficulty. Problem: Health Behavior: Goal: Understanding of discharge [...] test results will improve Outcome: Progressing Problem: Safety: Goal: Will remain free from falls Outcome: Progressing Problem: Self-Care: Goal: Ability to meet self-care needs will improve Outcome: Progressing Problem: Sensory: Goal: Pain level will decrease Outcome: Progressing Problem: Skin Integrity: Goal: Signs of wound healing will improve Outcome: Progressing Goal: Will remain free from infection Outcome: Progressing Goal: Risk for impaired skin integrity will decrease Outcome: Progressing EDGE GRINDER MACHINE * Plan of Care - Cora Maguire RN - 07/11/2019 5:24 PM LENS EDGE GRINDER MACHINE Problem: Health Behavior: Goal: Understanding of discharge [...] test results will improve Outcome: Progressing Problem: Safety: Goal: Will remain free from falls Outcome: Progressing Problem: Self-Care: Goal: Ability to meet self-care needs will improve Outcome: Progressing Problem: Sensory: Goal: Pain level will decrease Outcome: Progressing Problem: Skin Integrity: Goal: Signs of wound healing will improve Outcome: Progressing Goal: Will remain free from infection Outcome: Progressing Goal: Risk for impaired skin integrity will decrease Outcome: Progressing Goals: Clinical Goals for the Shift: VSS, pain control, good intake and output, and remain free from injury Summary: VSS, pain is well controled with PRN medication, has good intake and output as the day went on, dressing is clean dry and intact, pt is slightly unstable on her feet, and will continue to monitor EDGE GRINDER MACHINE * Plan of Care - Greg Mims PTA - 07/11/2019 2:53 PM CST Problem: PT Misc Goal: PT STG - Misc 1 Description Pt to be indep>cga with bed mobility consistently to increase functional mobility. Outcome: Progressing Problem: PT Misc Goal: PT STG - Misc 2 Description Pt to be cga>sba with all transfers consistently to increase functional mobility. Outcome: Adequate for Discharge Goal: PT STG - Misc 3 Description Pt to ambulate 75-100' cga with fww consistently, to increase functional mobility. Outcome: Adequate for Discharge Problem: PT Misc Goal: PT STG - Misc 4 Description Pt to ascend/descend 4 steps min assist consistently to increase functional independence. Outcome: Completed Bed Mobility: supine to EOB min assist Transfers: sit to stand sba/cga Gait: Ambulated 100' with w/w sba/cga Recommend SNF vs Home with 24 hr. care EDGE GRINDER MACHINE * Plan of Care - Benita Tuttle RN - 07/11/2019 4:13 AM CST Goals: Clinical Goals for the Shift: vitals stable, pain control, remain free from falls or injury Summary: Patient alert and oriented, vitals stable, IV fluids infusing. Medicated twice for pain with adequate relief. Has not been up with therapy yet. Voiding without difficulty on bedpan. Tolerating PO. Problem: Health Behavior: Goal: Understanding of discharge [...] test results will improve Outcome: Progressing Problem: Safety: Goal: Will remain free from falls Outcome: Progressing Problem: Self-Care: Goal: Ability to meet self-care needs will improve Outcome: Progressing Problem: Sensory: Goal: Pain level will decrease Outcome: Progressing Problem: Skin Integrity: Goal: Signs of wound healing will improve Outcome: Progressing Goal: Will remain free from infection Outcome: Progressing Goal: Risk for impaired skin integrity will decrease Outcome: Progressing EDGE GRINDER MACHINE * Plan of Care - Cora Maguire RN - 07/10/2019 5:41 PM LENS EDGE GRINDER MACHINE Problem: Health Behavior: Goal: Understanding of discharge [...] test results will improve Outcome: Progressing Problem: Safety: Goal: Will remain free from falls Outcome: Progressing Problem: Self-Care: Goal: Ability to meet self-care needs will improve Outcome: Progressing Problem: Sensory: Goal: Pain level will decrease Outcome: Progressing Problem: Skin Integrity: Goal: Signs of wound healing will improve Outcome: Progressing Goal: Will remain free from infection Outcome: Progressing Goal: Risk for impaired skin integrity will decrease Outcome: Progressing Goals: Clinical Goals for the Shift: comfort/mobility/safety Summary: VSS, pain is well controled with PRN medication, has poor intake with nausea, dressing is clean dry and intact, and will continue to monitor EDGE GRINDER MACHINE * Op Note - Mary Mckenzie MD - 07/10/2019 11:54 AM CST Preoperative diagnosis: right Hip osteoarthritis Postoperative diagnosis: Same as preoperative diagnosis Procedure: right total hip arthroplasty Surgeon: Mary Mckenzie MD Tile Setter Apprentice: Lien Garcia Anesthesia: Spinal Estimated blood loss: 250cc Complications: None Condition: Stable to PACU Implanted component: Implant Name Type Inv. Item Serial No. Pediatric Audiologist Lot No. [id number] No. Used [employer] [id number] [place] 52MM SECTOR HIP SHELL ACETABULAR GRIPTION STERILE LATEX FREE - [id number] [employer] [id number] [place] 52mm Sector Hip Shell Acetabular GriptionSterile Latex Free [employer] [id number] Right 1 [employer] [id number] [place] 52MM 36MM HIP NEUTRAL LINER ACETABULAR ALTRX STERILE LATEX FREE - [id number] [employer] [id number] [place] 52mm 36mm Hip Neutral Liner AcetabularAltrx Sterile Latex Free [employer] [id number] Right 1 [employer] [id number] [place] 6.5MM 25MM ACETABULAR CANCELLOUS SCREW BONE STERILE - [id number] [employer] 1217-25-500 [place] 6.5mm 25mm Acetabular Cancellous Screw Bone Sterile [employer] [id number] Right 1 [employer] [id number] ARTICUL/SASCHA 36MM CEMENTLESS HIP +1.5MM 12/14 TAPER HEAD FEMORAL LATEX FREE - [id number] [employer] [id number] Articul/sascha 36mm Cementless Hip +1.5mm 12/14 [place] Femoral Latex Free [employer] [id number] Right 1 [employer] [id number] ACTIS COLLARED HIP 12/14 6 STANDARD OFFSET STEM FEMORAL - [id number] [employer] [id number] Actis Collared Hip 12/14 6 Standard Offset Stem Femoral [facility] [id number] Right 1 Technique: I met the patient in the [...] place utilizing fluoroscopy to optimize position. A 25mm bone screw was drilled, measured, and placed [...] correct at the end of the case. EDGE GRINDER MACHINE * Pre-Procedure Instructions - Sari Dougherty RN - 07/01/2019 9:10 AM LENS EDGE GRINDER MACHINE We are pleased that you and your doctor have chosen [facility] for your surgery. We hope that the following information will help make your visit a pleasant one. Surgery Date: 07/10/2019 Before your surgery: ?? Notify your doctor [...] ?? Aspirin (ordered by your doctor) ?? Plavix ?? Coumadin One week before surgery STOP taking: ?? All herbal supplements ?? Aspirin (not ordered by your doctor) ?? Aleve, Advil, Motrin, Ibuprofen, or other similar medications (Tylenol is okay). 24 hours before your surgery: ?? No smoking or alcoholic drinks. ?? Stop taking your: Metformin/Glucophage. Night before your surgery: ?? Do not eat or drink anything after midnight. ? Follow surgeon's instructions for anti-bacterial shower night before and morning of surgery. Day of surgery: ?? Do not swallow any water when you brush your teeth. ?? Do not take your AM insulin dose or any diabetic medicines ?? ONLY take these pills with a tiny sip of water. Pre-Surgery Instructions: Medication Instructions ??? felodipine (PLENDIL) 5 mg 24 hr tablet ??? pantoprazole DR (PROTONIX) 20 mg EC tablet ??? propranolol (INDERAL) 20 mg tablet ?? Use no make-up, nail bengali, lotions, oils or powders on your skin. ?? Wear comfortable clothes that will not be tight in the area of your surgery. ?? Leave all valuables and jewelry (including all body piercing jewelry) at home. ?? If you use a CPAP machine, please bring it with you to wear after your surgery. ?? Please bring your a photo ID [...] posted at the top of the page. EDGE GRINDER MACHINE documented in this encounter Plan of Treatment Not on file documented as of this encounter Procedures Procedure Name Priority Date/Time Associated Diagnosis Comments EGFR Routine 07/12/2019 3:06 AM LENS EDGE GRINDER MACHINE CBC WITHOUT DIFFERENTIAL Routine 07/12/2019 3:06 AM LENS EDGE GRINDER MACHINE BASIC METABOLIC PANEL Routine 07/12/2019 3:06 AM LENS EDGE GRINDER MACHINE EGFR Routine 07/11/2019 3:18 AM LENS EDGE GRINDER MACHINE CBC WITHOUT DIFFERENTIAL Routine 07/11/2019 3:18 AM LENS EDGE GRINDER MACHINE BASIC METABOLIC PANEL Routine 07/11/2019 3:18 AM LENS EDGE GRINDER MACHINE SURGICAL PATHOLOGY Routine 07/10/2019 1: 57 PM LENS EDGE GRINDER MACHINE Primary osteoarthritis of right hip XR PELVIS ORTHO VIEW STAT 07/10/2019 1:17 PM LENS EDGE GRINDER MACHINE FL FLUOROSCOPY < 1 HOUR (STATISTICAL ONLY) IP Routine 07/10/2019 12:42 PM LENS EDGE GRINDER MACHINE XR HIP RIGHT 1 VIEW IP Routine 07/10/2019 12:42 PM LENS EDGE GRINDER MACHINE ARTHROPLASTY TOTAL HIP 07/10/2019 10:16 AM LENS EDGE GRINDER MACHINE Primary osteoarthritis of right hip Special Needs Depuy Actis, omnitrac, midas joe, aquamantys and 1 liter beta rinse07/01/19 Reviewed kkm POTASSIUM, WHOLE BLOOD STAT 07/10/2019 8:41 AM LENS EDGE GRINDER MACHINE APTT STAT 07/10/2019 8:41 AM LENS EDGE GRINDER MACHINE PROTIME-INR STAT 07/10/2019 8:41 AM LENS EDGE GRINDER MACHINE documented in this encounter Results * eGFR (07/12/2019 3:06 AM LENS EDGE GRINDER MACHINE) eGFR 82 mL/min/1.7 3 m2 [facility] ([place]) Comment: Interpretive Data Reference Interval Normal ?>/= 90 mL/min/1.73m2 Mildly decreased* ? 60 - 89 mL/min/1.73m2 Mildly to moderately decreased ?45 - 59 mL/min/1.73m2 Moderately to severely decreased ??30 - 44 mL/min/1.73m2 Severely decreased ?15 - 29 mL/min/1.73m2 Kidney Failure ?< 15 ??mL/min/1.73m2 *Relative to young adult level If -Ghanaian multiply value by 1.16. Estimated glomerular filtration [...] was last reviewed 2016. Blood specimen (specimen) 07/12/2019 3:06 AM LENS EDGE GRINDER MACHINE 07/12/2019 3:23 AM LENS EDGE GRINDER MACHINE us Hannah BRUCE LAB BLOOD ORDERABLES Farzana hernandez Result [facility] ([place]) 1 [facility] [place] [address] * (ABNORMAL) CBC without differential (07/12/2019 3:06 AM LENS EDGE GRINDER MACHINE) Pathologist [facility] WBC 9.8 3.8 - 9.9 K/cumm [facility] ([place]) Hgb 11.6(L) 11.9 - 15.5 g/dL [facility] ([place]) Hct 36.7 35.6 - 45.5 % [facility] ([place]) Plt 193 150 - 400 K/cumm [facility] ([place]) MPV 9.0(L) 9.1 - 12.3 fL [facility] ([place]) RBC 4.20 3.90 - 5.20 M/cumm [facility] ([place]) MCV 87.4 81.3 - 96.4 fL [facility] ([place]) MCH 27.6 27.1 - 33.3 pg [facility] ([place]) MCHC 31.6(L) 32.3 - 35.7 g/dL [facility] ([place]) RDW CV 13.5 11.1 - 14.9 % [facility] ([place]) RDW SD 43.3 35.7 - 48.1 fL [facility] ([place]) NRBC abs 0.00 0.00 - 0.01 K/cumm [facility] ([place]) Blood specimen (specimen) 07/12/2019 3:06 AM LENS EDGE GRINDER MACHINE 07/12/2019 3:23 AM LENS EDGE GRINDER MACHINE us Hannah BRUCE LAB BLOOD ORDERABLES Farzana hernandez Result [facility] 1 [facility] Department [place] [address] * (ABNORMAL) Basic metabolic panel (07/12/2019 3:06 AM LENS EDGE GRINDER MACHINE) Pathologist [facility] Sodium 134(L) 135 - 145 mmol/L [facility] ([place]) Potassium, pl 4.3 3.3 - 4.9 mmol/L [facility] ([place]) Chloride 100 97 - 110 mmol/L [facility] ([place]) CO2 27 22 - 32 mmol/L [facility]) Anion gap 8 2 - 15 mmol/L [facility] ([place]) BUN 15 8 - 25 mg/dL [facility] ([place]) Creatinine 0.68 0.60 - 1.10 mg/dL [facility] ([place]) Glucose 120 70 - 199 mg/dL [facility] ([place]) Comment: Interpretive Data Fasting glucose [...] interpretive data was last revised 2017. Calcium 8.7 8.5 - 10.3 mg/dL [facility] ([place]) Blood specimen (specimen) 07/12/2019 3:06 AM LENS EDGE GRINDER MACHINE 07/12/2019 3:23 AM LENS EDGE GRINDER MACHINE us Hannah BRUCE LAB BLOOD ORDERABLES Farzana hernandez Result [facility] ([place] 1 [facility] [place] [address] * eGFR (07/11/2019 3:18 AM LENS EDGE GRINDER MACHINE) eGFR 38 mL/min/1.7 3 m2 [facility] ([place]) Comment: Interpretive Data Reference Interval Normal ?>/= 90 mL/min/1.73m2 Mildly decreased* ? 60 - 89 mL/min/1.73m2 Mildly to moderately decreased ?45 - 59 mL/min/1.73m2 Moderately to severely decreased ??30 - 44 mL/min/1.73m2 Severely decreased ?15 - 29 mL/min/1.73m2 Kidney Failure ?< 15 ??mL/min/1.73m2 *Relative to young adult level If -Ghanaian multiply value by 1.16. Estimated glomerular filtration [...] was last reviewed 2016. Blood specimen (specimen) 07/11/2019 3:18 AM LENS EDGE GRINDER MACHINE 07/11/2019 3:25 AM LENS EDGE GRINDER MACHINE us Hannah BRUCE LAB BLOOD ORDERABLES Farzana hernandez Result [facility] ([place]) 1 [facility] Department [place] [address] * (ABNORMAL) CBC without differential (07/11/2019 3:18 AM LENS EDGE GRINDER MACHINE) WBC 11.3(H) 3.8 - 9.9 K/cumm [facility] ([place]) Hgb 12.3 11.9 - 15.5 g/dL [facility] ([place]) Hct 39.1 35.6 - 45.5 % [facility] ([place]) Plt 235 150 - 400 K/cumm [facility] ([place]) MPV 8.9(L) 9.1 - 12.3 fL [facility] ([place]) RBC 4.46 3.90 - 5.20 M/cumm [facility] ([place]) MCV 87.7 81.3 - 96.4 fL [facility] ([place]) MCH 27.6 27.1 - 33.3 pg [facility] ([place]) MCHC 31.5(L) 32.3 - 35.7 g/dL [facility] ([place]) RDW CV 13.5 11.1 - 14.9 % [facility] ([place]) RDW SD 43.8 35.7 - 48.1 fL [facility] NRBC abs 0.00 0.00 - 0.01 K/cumm [facility] ([place]) Blood specimen (specimen) 07/11/2019 3:18 AM LENS EDGE GRINDER MACHINE 07/11/2019 3:25 AM LENS EDGE GRINDER MACHINE us Hannah BRUCE LAB BLOOD ORDERABLES Farzana hernandez Result [facility] ([place]) 1 [facility] Department [place] [address] * (ABNORMAL) Basic metabolic panel (07/11/2019 3:18 AM LENS EDGE GRINDER MACHINE) Sodium 130(L) 135 - 145 mmol/L [facility] Potassium, pl 4.2 3.3 - 4.9 mmol/L [facility] Chloride 93(L) 97 - 110 mmol/L [facility] ([place]) CO2 24 22 - 32 mmol/L [facility] Anion gap 13 2 - 15 mmol/L [facility] BUN 16 8 - 25 mg/dL [facility] Creatinine 1.32(H) 0.60 - 1.10 mg/dL [facility] Glucose 279(H) 70 - 199 mg/dL [facility] ([place]) Comment: Interpretive Data Fasting glucose [...] interpretive data was last revised 2017. Calcium 8.3(L) 8.5 - 10.3 mg/dL [facility] ([place]) Blood specimen (specimen) 07/11/2019 3:18 AM LENS EDGE GRINDER MACHINE 07/11/2019 3:25 AM LENS EDGE GRINDER MACHINE us Hannah BRUCE LAB BLOOD ORDERABLES Farzana david Result [facility] 1 [facility] [place] [address] * Surgical pathology (07/10/2019 1:57 PM LENS EDGE GRINDER MACHINE) Tissue (Bone Fragment(s),) 07/10/2019 10:42 AM LENS EDGE GRINDER MACHINE Narrative PATHOLOGY [facility] ([place] - 07/15/2019 12:08 PM LENS EDGE GRINDER MACHINE EPIC results best viewed via link to PDF [facility] Department of Pathology [address] [place] [id number] Final Report Patient Name: ??TESS BENEDICT William Address: ??[address] [place] [address], ??[place], [place] ??[address] Gender: ??F : ??1935 (Age: 83) Service: ??Surgery Location: ??[facility] Hospital #: ??[id number] Patient Type: ??[facility] EP OP in bed Accession # ?[id number] Taken: ??07/10/2019 Received: ??07/10/2019 Accessioned: ??07/10/2019 Reported: ??07/15/2019 Physician(s):Dr. Mary Mckenzie M.D. Diagnosis: Hip, right, total hip arthroplasty: ? -Degenerative joint disease. Kasia Diallo M.D. Report Electronically Reviewed and Signed Out By ??Kasia Anderson M.D. ??07/15/2019 12:08:08 Specimen(s) Received: A: Bone, femoral head Microscopic Description: Microscopic examination of the decalcified section from the right hip shows marked degenerative change with erosion of the articular cartilage. ??The underlying marrow space shows areas of reactive fibrosis as well as some unremarkable hematopoietic elements. ??There is no evidence of malignancy. Clinical History: Osteoarthritis of right hip. ??Right hip bone and tissue. ??Right total hip arthroplasty, anterior approach. Gross Description: The specimen is received in a single container labeled Tess Benedict and right hip . ??It is a 4.7 cm in diameter femoral head and separate 15 cc aggregate of henson gritty hemorrhagic cortical and cancellous bone. The articular surface of the femoral head shows degenerative changes of the cartilage with erosion and eburnation. The femoral neck margin is smooth. The specimen is bisected revealing no subchondral gross lesions. Cardiac Cath Technician sections are submitted in one cassette after decalcification. ??Kasia Diallo M.D./Josef Vinson REPORT IMAGES AND SCANNED DOCUMENTS, IF INCLUDED, ONLY VIEWABLE IN PDF VERSION OF REPORT The performance characteristics of some immunohistochemical stains, fluorescence in-situ hybridization tests and immunophenotyping by flow cytometry cited in this report (if any) were determined by the Surgical Pathology Department at [facility] as part of an ongoing quality associate program and in compliance with federally mandated [...] characteristics determined by the Surgical Pathology Department [facility]. ??It has not been cleared or approved by the U. S. Food and Drug Administration. us Mary Mckenzie MD LAB PATHOLOGY ORDERABLES Final Result [facility] ([place]) [address] [place] [address] * XR Pelvis Ortho View (07/10/2019 1:17 PM LENS EDGE GRINDER MACHINE) Anatomical Region Laterality Modality Body, Pelvis N/A Computed Radiogr aphy 07/10/2019 1:55 PM LENS EDGE GRINDER MACHINE Impressions 07/10/2019 1:59 PM LENS EDGE GRINDER MACHINE Expected post-operative appearance of the right hip status post recent prior total hip arthroplasty. ??No evidence of complication. Electronically signed by: Je Stoll M.D. Narrative 07/10/2019 1:59 PM LENS EDGE GRINDER MACHINE EXAMINATION: XR PELVIS ORTHO VIEW ORDERING HEALTHCARE PROVIDER: HANNAH EMMANUEL HISTORY: Post-operative evaluation status post right total hip arthroplasty today. TECHNIQUE: 1 AP radiographic view of the pelvis was obtained. COMPARISON: ??None available. FINDINGS: BONES: There are post-operative changes of recent prior right total hip arthroplasty. ??The hardware appears well seated. ??There is no evidence of a prosthetic or periprosthetic fracture. ??Alignment is normal. ??There is mild to moderate left hip osteoarthritis. ??The visualized bony pelvis appears intact. ??There are no aggressive appearing osseous lesions. SOFT TISSUES: There is post-operative gas in subcutaneous tissues about the right hip. ??The remainder of the visualized soft tissues are normal in appearance. Procedure Note Je Stoll MD - 07/10/2019 EXAMINATION: XR PELVIS ORTHO VIEW ORDERING HEALTHCARE PROVIDER: HANNAH EMMANUEL HISTORY: Post-operative evaluation status post right total hip arthroplasty today. TECHNIQUE: 1 AP radiographic view of the pelvis was obtained. COMPARISON: None available. FINDINGS: BONES: There are post-operative changes of recent prior right total hip arthroplasty. The hardware appears well seated. There is no evidence of a prosthetic or periprosthetic fracture. Alignment is normal. There is mild to moderate left hip osteoarthritis. The visualized bony pelvis appears intact. There are no aggressive appearing osseous lesions. SOFT TISSUES: There is post-operative gas in subcutaneous tissues about the right hip. The remainder of the visualized soft tissues are normal in appearance. IMPRESSION: Expected post-operative appearance of the right hip status post recent prior total hip arthroplasty. No evidence of complication. Electronically signed by: Je Stoll M.D. us Hannah Emmanuel PA IMG XR PROCEDURES Final R esult * FL Fluoroscopy < 1 Hour (Statistical Only) (07/10/2019 12:42 PM LENS EDGE GRINDER MACHINE) Anatomical Region Laterality Modality Body N/A Radio Fluoroscop y 07/10/2019 12:4 9 PM LENS EDGE GRINDER MACHINE Impressions 07/16/2019 9:53 AM LENS EDGE GRINDER MACHINE Fluoroscopic image(s) for intraoperative control purposes. Electronically signed by: Flash Aquino M.D. Narrative 07/16/2019 9:53 AM LENS EDGE GRINDER MACHINE EXAMINATION: XR HIP RIGHT 1 VIEW ORDERING HEALTHCARE PROVIDER: MARY MCKENZIE HISTORY: OTHER. ??Per chart review 07/10/2019: Right total hip arthroplasty, anterior approach Depuy Actis, omnitrac, midas joe, aquamantys and 1 liter beta rinse ?? COMPARISON: None available FINDINGS: 10 intraoperative fluoroscopic image(s) reveal placement of right total hip arthroplasty hardware. Fluoroscopy time 10 seconds. Please see the operative report for further findings. Procedure Note Flash Aquino MD - 07/16/2019 EXAMINATION: XR HIP RIGHT 1 VIEW ORDERING HEALTHCARE PROVIDER: MARY MCKENZIE HISTORY: OTHER. Per chart review 07/10/2019: Right total hip arthroplasty, anterior approach Depuy Actis, omnitrac, midas joe, aquamantys and 1 liter beta rinse COMPARISON: None available FINDINGS: 10 intraoperative fluoroscopic image(s) reveal placement of right total hip arthroplasty hardware. Fluoroscopy time 10 seconds. Please see the operative report for further findings. IMPRESSION: Fluoroscopic image(s) for intraoperative control purposes. Electronically signed by: Flash Aquino M.D. Mary Mckenzie MD IMG FLUOROSCOPY PROCEDUR ES Final Result * XR Hip Right 1 View (07/10/2019 12:42 PM LENS EDGE GRINDER MACHINE) Anatomical Region Laterality Modality Lower Extremities, Hip, Pelvis Right R adio Fluoroscopy 07/10/2019 12:4 8 PM LENS EDGE GRINDER MACHINE Impressions 07/10/2019 12:49 PM LENS EDGE GRINDER MACHINE Fluoroscopic image(s) for intraoperative control purposes. Electronically signed by: Flash Aquino M.D. Narrative 07/10/2019 12:49 PM LENS EDGE GRINDER MACHINE EXAMINATION: XR HIP RIGHT 1 VIEW ORDERING HEALTHCARE PROVIDER: MARY MCKENZIE HISTORY: OTHER. ??Per chart review 07/10/2019: Right total hip arthroplasty, anterior approach Depuy Actis, omnitrac, midas joe, aquamantys and 1 liter beta rinse ?? COMPARISON: None available FINDINGS: 10 intraoperative fluoroscopic image(s) reveal placement of right total hip arthroplasty hardware. Fluoroscopy time 10 seconds. Please see the operative report for further findings. Procedure Note Flash Aquino MD - 07/10/2019 EXAMINATION: XR HIP RIGHT 1 VIEW ORDERING HEALTHCARE PROVIDER: MARY MCKENZIE HISTORY: OTHER. Per chart review 07/10/2019: Right total hip arthroplasty, anterior approach Depuy Actis, omnitrac, midas joe, aquamantys and 1 liter beta rinse COMPARISON: None available FINDINGS: 10 intraoperative fluoroscopic image(s) reveal placement of right total hip arthroplasty hardware. Fluoroscopy time 10 seconds. Please see the operative report for further findings. IMPRESSION: Fluoroscopic image(s) for intraoperative control purposes. Electronically signed by: Flash Aquino M.D. Mary Mckenzie MD IMG XR PROCEDURES Final Result * aPTT (07/10/2019 8:41 AM LENS EDGE GRINDER MACHINE) aPTT 33 25 - 37 sec [facility] ([place]) Comment: Interpretive data Heparin therapeutic range: 60-94 seconds Range based on correlation with therapeutic heparin activity range of 0.3-0.7 units/ml. Current interpretive data was last revised on 2019. Blood specimen (specimen) 07/10/2019 8:41 AM LENS EDGE GRINDER MACHINE 07/10/2019 8:49 AM LENS EDGE GRINDER MACHINE Mary Mckenzie MD LAB BLOOD ORDERABLES Fin al Result [facility] ([place]) 1 [facility] [place] [address] * Protime-INR (07/10/2019 8:41 AM LENS EDGE GRINDER MACHINE) PT 12.0 9.5 - 13.0 sec [facility] ([place]) INR 1.1 0.9 - 1.2 [facility] ([place]) Comment: Interpretive data Oral anticoagulant therapeutic ranges: Venous thromboembolism prophylaxis or treatment: 2.0-3.0 CARDIOLOGY Standard range: 2.0-3.0 High-intensity range: 2.5-3.5 Refer to indication-specific guidelines for appropriate target ranges for prosthetic heart valve replacement. Current interpretive data was last revised on 2019. Blood specimen (specimen) 07/10/2019 8:41 AM LENS EDGE GRINDER MACHINE 07/10/2019 8:49 AM LENS EDGE GRINDER MACHINE us Mary Mckenzie MD LAB BLOOD ORDERABLES Fin al Result [facility] [place] [address] * Potassium, whole blood (07/10/2019 8:41 AM LENS EDGE GRINDER MACHINE) Potassium, bld 4.1 3.5 - 5.0 mmol/L [facility] ([place]) Blood specimen (specimen) 07/10/2019 8:41 AM LENS EDGE GRINDER MACHINE 07/10/2019 8:49 AM LENS EDGE GRINDER MACHINE Madi Silverio MD LAB BLOOD ORDERABLES Fin al Result [facility] ([place] [place] [address] documented in this encounter Visit Diagnoses Diagnosis Primary osteoarthritis of right hip- Primary Primary osteoarthritis of right hip Primary osteoarthritis of right hip documented in this encounter Admitting Diagnoses Diagnosis Primary osteoarthritis of right hip documented in this encounter Administered Medications Inactive Administered Medications - up to 3 most recent administrations Medication Order MAR Action Action Date Dose Rate Site acetaminophen (TYLENOL) tablet 650 mg 650 mg, oral, Every 6 hours PRN, 1st line for pain, Starting on Katy 07/11/19 at 1326 Given 07/11/2019 8:07 PM LENS EDGE GRINDER MACHINE 650 mg Given 07/11/2019 1:33 PM LENS EDGE GRINDER MACHINE 650 mg amLODIPine (NORVASC) tablet 5 mg 5 mg, oral, Daily, First dose on [place] 07/11/19 at 0900 Given 07/12/2019 8:01 AM LENS EDGE GRINDER MACHINE 5 mg ascorbic acid (VITAMIN C) tablet/chewable tablet 500 mg 500 mg, oral, Daily, First dose on Mon07/10/19 at 1515, Indications: Vitamin deficiency preventionIndications:Chanelle min deficiency prevention Given 07/12/2019 8:01 AM LENS EDGE GRINDER MACHINE 500 mg aspirin enteric coated tablet 325 mg 325 mg, oral, Daily, First dose on Mon07/11/19 at 0900, Do not crush, chew, cut, dissolve, open or otherwise manipulate tablet/capsule., Indications: Deep Vein Thrombosis PreventionIndications:Deep Vein Thrombosis Prevention Given 07/12/2019 8:01 AM LENS EDGE GRINDER MACHINE 325 mg bacitracin 100,000 Units, polymyxin B 1,000,000 Units in sodium chloride 0.9% 1,000 mL irrigation solution irrigation, Once, On Mon07/10/19 at 0845, For 1 dose, Intra-Op, Bag #1 Given 07/10/2019 11:55 AM LENS EDGE GRINDER MACHINE 1,000 mL Surgical Site bacitracin 100,000 Units, polymyxin B 1,000,000 Units in sodium chloride 0.9% 1,000 mL irrigation solution irrigation, Once, On Mon07/10/19 at 0845, For 1 dose, Intra-Op, Bag #2 Given 07/10/2019 11:55 AM LENS EDGE GRINDER MACHINE 1,000 mL Surgical Site bupivacaine (MARCAINE) 50 mg, morphine 10 mg, EPINEPHrine 0.3 mg in sodium chloride 0.9% 20 mL topical solution topical, Once, On Mon07/10/19 at 0845, For 1 dose, Intra-Op Given 07/10/2019 12:30 PM LENS EDGE GRINDER MACHINE 31.3 mL Surgical Site ceFAZolin (ANCEF) 2,000 mg/100 mL in dextrose (premix) 2,000 mg 2,000 mg, intravenous, at 200 mL/hr, Administer over 30 Minutes, Every 8 hours, First dose on Mon07/10/19 at 1900, For 2 doses, Beginning 8 hours after last dagoberto-operative dose., Indications: Prophylaxis, SurgicalIndications:Prophy laxis, Surgical New Bag 07/11/2019 2:38 AM LENS EDGE GRINDER MACHINE 2,000 mg 200 mL/hr New Bag 07/10/2019 6:35 PM LENS EDGE GRINDER MACHINE 2,000 mg 200 mL/hr cholecalciferol (VITAMIN D-3) tablet 2,000 Units 2,000 Units, oral, Daily, First dose on Mon07/10/19 at 1700 Given 07/12/2019 8:01 AM LENS EDGE GRINDER MACHINE 2,000 Units famotidine (PEPCID) tablet 10 mg 10 mg, oral, Nightly, First dose (after last modification) on Mon07/11/19 at 2100, Dose of famotidine 10 mg po daily adjusted per renal protocol for CrCl=< 30 ml/min (CrCl=24 ml/min) Estimated Creatinine Clearance: 24 mL/min (A) (by C-G formula based on SCr of 1.32 mg/dL (H))., Indications: HeartburnIndications:Heartburn Given 07/11/2019 8:08 PM LENS EDGE GRINDER MACHINE 10 mg famotidine (PEPCID) tablet 20 mg 20 mg, oral, Daily, First dose (after last modification) on Mon07/10/19 at 2100, Indications: HeartburnIndications:Heartburn Given 07/10/2019 8:26 PM LENS EDGE GRINDER MACHINE 20 mg ferrous sulfate tablet 325 mg 325 mg (65 mg of elemental iron), oral, Daily with breakfast, First dose on Mon07/11/19 at 0800, Indications: Iron Deficiency Anemia, Anemia preventionIndications:Iron Deficiency Anemia,Anemia prevention Given 07/12/2019 8:01 AM LENS EDGE GRINDER MACHINE 325 mg HYDROcodone-acetaminophen (NORCO) 5-325 mg per tablet 1 tablet 1 tablet, oral, Every 4 hours PRN, 1st line for pain, Starting on Mon07/11/19 at 1051, Indications: PainIndications:Pain Given 07/12/2019 12:55 PM LENS EDGE GRINDER MACHINE 1 tablet Given 07/12/2019 2:20 AM LENS EDGE GRINDER MACHINE 1 tablet Given 07/11/2019 11:14 PM LENS EDGE GRINDER MACHINE 1 tablet HYDROcodone-acetaminophen (NORCO) 5-325 mg per tablet 2 tablet 2 tablet, oral, Every 4 hours PRN, 2nd line for pain, Starting on Mon07/11/19 at 1051, Indications: PainIndications:Pain ketorolac (TORADOL) 15 mg/mL injection 15 mg 15 mg, intravenous, Every 6 hours, First dose on Mon07/10/19 at 1515, For 2 doses, Indications: PainIndications:Pain Given 07/10/2019 8:26 PM LENS EDGE GRINDER MACHINE 15 mg Given 07/10/2019 3:43 PM LENS EDGE GRINDER MACHINE 15 mg Lactated Ringer's (LR) infusion 30 mL/hr, intravenous, Continuous, Starting on Mon07/10/19 at 0845, Pre-Op New Bag 07/10/2019 11:59 AM LENS EDGE GRINDER MACHINE Rate/Dose Verify 07/10/2019 10:37 AM LENS EDGE GRINDER MACHINE New Bag 07/10/2019 10:34 AM LENS EDGE GRINDER MACHINE 30 mL/hr 30 mL/hr ondansetron (ZOFRAN) injection 4 mg 4 mg, intravenous, Administer over 2 Minutes, Every 6 hours PRN, nausea, vomiting, if not tolerating PO, Starting on Mon07/10/19 at 1430, Indications: nausea and vomitingIndications:nausea and vomiting Given 07/11/2019 8:57 AM LENS EDGE GRINDER MACHINE 4 mg Given 07/10/2019 3:17 PM LENS [employer]GE GR[employer]ER MACHINE 4 mg ondansetron ODT (ZOFRAN-ODT) disintegrating tablet 4 mg 4 mg, oral, Every 6 hours PRN, nausea, vomiting, Starting on Mon07/10/19 at 1430, Indications: nausea and vomitingIndications:nausea and vomiting oxyCODONE (ROXICODONE) tablet 5 mg 5 mg, oral, Every 4 hours PRN, breakthrough pain, Starting on Mon07/10/19 at 1430, Indications: PainIndications:Pain Given 07/11/2019 3:59 AM L[employer]GE [employer] MACHINE 5 mg oxyCODONE ER (OxyCONTIN) extended release tablet 10 mg 10 mg, oral, Every 12 hours scheduled, First dose on Mon07/10/19 at 2100, Do not crush, chew, cut, dissolve, open or otherwise manipulate tablet/capsule. Given 07/10/2019 8:26 PM L[employer]GE [employer] MACHINE 10 mg oxyCODONE ER (OxyCONTIN) extended release tablet 20 mg 20 mg, oral, Once, On Mon07/10/19 at 0845, For 1 dose, Pre-Op, Do not crush, chew, cut, dissolve, open or otherwise manipulate tablet/capsule., Indications: PainIndications:Pain Given 07/10/2019 10:33 AM L[employer] MACHINE 20 mg oxyCODONE-acetaminophen (PERCOCET) 5-325 mg per tablet 2 tablet 2 tablet, oral, Every 4 hours PRN, 2nd line for pain, Starting on Mon07/10/19 at 1415, Indications: PainIndications:Pain Given 07/11/2019 7:42 AM [employer] MACHINE 2 ta blets Given 07/11/2019 1:33 AM [employer]GE GR[employer] MACHINE 2 tablets Given 07/10/2019 2:25 PM L[employer]GE GR[employer]ER MACHINE [address] (PROTONIX) extended release tablet 40 mg 40 mg, oral, Daily, First dose (after last modification) on Mon07/11/19 at 0900, Do not crush, chew, cut, dissolve, open or otherwise manipulate tablet/capsule., Indications: GERDIndications:GERD Given 07/12/2019 8:01 AM [employer] MACHINE 40 mg povidone-iodine (BETADINE) 120 mL in sodium chloride 0.9 % 900 mL solution As needed, Starting on Mon07/10/19 at 1155, Intra-Op Given 07/10/2019 11:55 AM [employer] GR[employer] MACHINE 500 mL pramipexole (MIRAPEX) tablet 0.125 mg 0.125 mg, oral, Daily, First dose on Mon07/10/19 at 1700 Given 07/12/2019 8:01 AM L[employer] GR[employer] MACHINE 0.125 mg prochlorperazine (COMPAZINE) injection 5 mg 5 mg, intravenous, Administer over 2 Minutes, Every 6 hours PRN, nausea, vomiting, Starting on Mon07/10/19 at 1605 Given 07/11/2019 10:07 AM [employer] GR[employer] MACHINE 5 mg Given 07/10/2019 4:19 PM [employer] MACHINE 5 mg propranolol (INDERAL) tablet 20 mg 20 mg, oral, 2 times daily, First dose on Mon07/10/19 at 2100 Given 07/12/2019 8:01 AM [employer] MACHINE 20 mg Given 07/11/2019 8:07 PM L[employer]GE GR[employer]ER MACHINE 20 mg Given 07/10/2019 8:26 PM [employer] GR[employer] MACHINE 20 mg senna-docusate (PERICOLACE) 8.6-50 mg per tablet 2 tablet 2 tablet, oral, 2 times daily, First dose on Mon07/10/19 at 2100, Hold for diarrhea., Indications: constipationIndications:constipation Given 07/12/2019 8:01 AM L[employer]GE GR[employer] MACHINE 2 table ts Given 07/11/2019 8:07 PM [employer] MACHINE 2 tablets Given 07/10/2019 8:26 PM [employer] GR[employer] MACHINE 2 tablets sodium chloride 0.9% infusion 125 mL/hr, intravenous, Continuous, Starting on Mon07/10/19 at 1515 New Bag 07/10/2019 5:14 PM L[employer] GR[employer] MACHINE 125 mL/hr 125 mL/hr spironolactone (ALDACTONE) tablet 25 mg 25 mg, oral, Daily, First dose on Mon07/10/19 at 1515 Given 07/12/2019 8:01 AM L[employer] GR[employer]ER MACHINE 25 mg documented in this encounter Discontinued Medications Medication Sig Discontinue Reason Start Date End Da te albuterol HFA (PROVENTIL HFA,VENTOLIN HFA,PROAIR HFA) 90 mcg/actuation inhaler INHALE 1 TO 2 PUFFS PO Q 4 H PRN SOB 03/14/2019 07/01/2019 famotidine-Ca carb-mag hydrox (PEPCID COMPLETE) 10-800-165 mg chewable tablet Take 1 tablet by mouth daily as needed for heartburn. 07/01/2019 meloxicam (MOBIC) 7.5 mg tabletIndications:Spina l stenosis of lumbar region with neurogenic claudication Take 1 tablet (7.5 mg total) by mouth daily With the largest meal 05/14/2019 07/01/2019 tiZANidine (ZANAFLEX) 2 mg tabletIndications:Restl ess legs syndrome,Spinal stenosis of lumbar region with neurogenic claudication Take 1 tablet (2 mg total) by mouth every 6 (six) hours as needed for muscle spasms 05/14/2019 07/01/2019 oxyCODONE-acetaminophen (PERCOCET) 5-325 mg per tabletIndications:Pain Take 1-2 tablets by mouth every 4 (four) hours as needed for pain Stop Taking at Discharge 07/11/2019 07/12/2019 aspirin 325 mg EC tablet Take 1 tablet (325 mg total) by mouth 2 (two) times a day for 28 days. Stop Taking at Discharge 02/07/2017 07/12/2019 naproxen (ALEVE) 220 mg tablet Take 220 mg by mouth 2 (two) times a day with meals Stop Taking at Discharge 07/12/2019 documented as of this encounter Historical Medications * This list may reflect changes made after this encounter. naproxen (ALEVE) 220 mg tablet Take 220 mg by mouth 2 (two) times a day with meals 07/12/2019 added in this encounter Active and Recently Administered Medications Times are shown in L[employer]GE GR[employer]ER MACHINE. Scheduled Medication Order 07/10/2019 07/11/2019 07/12/2019 amLODIPine (NORVASC) tablet 5 mg 5 mg, oral, Daily, First dose on Mon07/11/19 at 0900 1000 (Not Given - Provider: Cora Maguire RN - Reason: Patient/family refused) 0801 (Given - Provider: Cora Maguire RN) ascorbic acid (VITAMIN C) tablet/chewable tablet 500 mg 500 mg, oral, Daily, First dose on Mon07/10/19 at 1515, Indications: Vitamin deficiency prevention 1528 (Not Given - Provider: Cora Maguire RN - Reason: Patient/family refused) 1000 (Not Given - Provider: Cora Maguire RN - Reason: Patient/family refused) 0801 (Given - Provider: Cora Maguire RN) aspirin enteric coated tablet 325 mg 325 mg, oral, Daily, First dose on Mon07/11/19 at 0900, Do not crush, chew, cut, dissolve, open or otherwise manipulate tablet/capsule., Indications: Deep Vein Thrombosis Prevention 1000 (Not Given - Provider: Cora Maguire RN - Reason: Patient/family refused) 0801 (Given - Provider: Cora Maguire RN) bacitracin 100,000 Units, polymyxin B 1,000,000 Units in sodium chloride 0.9% 1,000 mL irrigation solution (COMPLETED) irrigation, Once, On Mon07/10/19 at 0845, For 1 dose, Intra-Op, Bag #1 0845 (Due)1155 (Given - Provider: Mary Mckenzie MD) bacitracin 100,000 Units, polymyxin B 1,000,000 Units in sodium chloride 0.9% 1,000 mL irrigation solution (COMPLETED) irrigation, Once, On Mon07/10/19 at 0845, For 1 dose, Intra-Op, Bag #2 0845 (Due)1155 (Given - Provider: Mary Mckenzie MD) bupivacaine (MARCAINE) 50 mg, morphine 10 mg, EPINEPHrine 0.3 mg in sodium chloride 0.9% 20 mL topical solution (COMPLETED) topical, Once, On Mon07/10/19 at 0845, For 1 dose, Intra-Op 0845 (Due)1230 (Given - Provider: Mary Mckenzie MD) ceFAZolin (ANCEF) 1 gram/10 mL in sterile water (premix) 2,000 mg (COMPLETED) 2,000 mg, intravenous, at 400 mL/hr, Administer over 3 Minutes, Once, On Mon07/10/19 at 0845, For 1 dose, Pre-Op, Administer within 60 minutes of incision. Use Vancomycin per pharmacy protocol if pt allergic to Ancef., Indications: Prophylaxis, Surgical 1100 (Given - Provider: Leticia Clement CRNA) ceFAZolin (ANCEF) 2,000 mg/100 mL in dextrose (premix) 2,000 mg (COMPLETED) 2,000 mg, intravenous, at 200 mL/hr, Administer over 30 Minutes, Every 8 hours, First dose on Mon07/10/19 at 1900, For 2 doses, Beginning 8 hours after last dagoberto-operative dose., Indications: Prophylaxis, Surgical 1835 (New Bag - Provider: Cora Maguire RN) 0238 (New Bag - Provider: Benita Tuttle RN) cholecalciferol (VITAMIN D-3) tablet 2,000 Units 2,000 Units, oral, Daily, First dose on Mon07/10/19 at 1700 1528 (Not Given - Provider: Cora Maguire RN - Reason: Patient/family refused) 1000 (Not Given - Provider: Cora Maguire RN - Reason: Patient/family refused) 0801 (Given - Provider: Cora Maguire RN) famotidine (PEPCID) tablet 10 mg (CANCELED) 10 mg, oral, Nightly, First dose (after last modification) on Mon07/11/19 at 2100, Dose of famotidine 10 mg po daily adjusted per renal protocol for CrCl=< 30 ml/min (CrCl=24 ml/min) Estimated Creatinine Clearance: 24 mL/min (A) (by C-G formula based on SCr of 1.32 mg/dL (H))., Indications: Heartburn 2007 (Given - Provider: Benita Tuttle, XU) famotidine (PEPCID) tablet 20 mg (CANCELED) 20 mg, oral, Daily, First dose (after last modification) on Mon07/10/19 at 2100, Indications: Heartburn 2025 (Given - Provider: Benita Tuttle RN) ferrous sulfate tablet 325 mg 325 mg (65 mg of elemental iron), oral, Daily with breakfast, First dose on Mon07/11/19 at 0800, Indications: Iron Deficiency Anemia, Anemia prevention 1000 (Not Given - Provider: Cora Maguire RN - Reason: Patient/family refused) 08 (Given - Provider: Cora Maguire RN) ketorolac (TORADOL) 15 mg/mL injection 15 mg (COMPLETED) 15 mg, intravenous, Every 6 hours, First dose on Mon07/10/19 at 1515, For 2 doses, Indications: Pain 1543 (Given - Provider: Cora Maguire RN)2025 (Given - Provider: Benita Tuttle RN) oxyCODONE ER (OxyCONTIN) extended release tablet 10 mg 10 mg, oral, Every 12 hours scheduled, First dose on Mon07/10/19 at 2100, Do not crush, chew, cut, dissolve, open or otherwise manipulate tablet/capsule. 2025 (Given - Provider: Benita Tuttle RN) 09 (Not Given - Provider: Cora Maguire RN - Reason: Patient/family refused)2014 (Not Given - Provider: Benita Tuttle RN - Reason: Patient/family refused) 0753 (Not Given - Provider: Cora Maguire RN - Reason: Patient/family refused) oxyCODONE ER (OxyCONTIN) extended release tablet 20 mg (COMPLETED) 20 mg, oral, Once, On Mon07/10/19 at 0845, For 1 dose, Pre-Op, Do not crush, chew, cut, dissolve, open or otherwise manipulate tablet/capsule., Indications: Pain 1033 (Given - Provider: Serina Rodriguez RN) pantoprazole DR (PROTONIX) extended release tablet 40 mg 40 mg, oral, Daily, First dose (after last modification) on Mon07/11/19 at 0900, Do not crush, chew, cut, dissolve, open or otherwise manipulate tablet/capsule., Indications: GERD 1000 (Not Given - Provider: Cora Maguire RN - Reason: Patient/family refused) 08 (Given - Provider: Cora Maguire RN) pramipexole (MIRAPEX) tablet 0.125 mg 0.125 mg, oral, Daily, First dose on Mon07/10/19 at 1700 1625 (Not Given - Provider: Cora Maguire RN - Reason: Patient/family refused) 1000 (Not Given - Provider: Cora Maguire RN - Reason: Patient/family refused) 08 (Given - Provider: Cora Maguire RN) propranolol (INDERAL) tablet 20 mg 20 mg, oral, 2 times daily, First dose on Mon07/10/19 at 2100 2025 (Given - Provider: Benita Tuttle RN) 1000 (Not Given - Provider: Cora Maguire RN - Reason: Patient/family refused)2006 (Given - Provider: Benita Tuttle RN) 08 (Given - Provider: Cora Maguire RN) senna-docusate (PERICOLACE) 8.6-50 mg per tablet 2 tablet 2 tablet, oral, 2 times daily, First dose on Mon07/10/19 at 2100, Hold for diarrhea., Indications: constipation 2025 (Given - Provider: Benita Tuttle RN) 1000 (Not Given - Provider: Cora Maguire RN - Reason: Patient/family refused)2006 (Given - Provider: Benita Tuttle RN) 08 (Given - Provider: Cora Maguire RN) sodium chloride 0.9% flush 0.5-20 mL 0.5-20 mL, intra-catheter, Every 8 hours scheduled, First dose on Mon07/10/19 at 1515, Flush volume based on line type and size. , Indications: Flushing 1529 (Not Given - Provider: Cora Maguire RN - Reason: IV Infusing)2212 (Not Given - Provider: Benita Tuttle RN - Reason: IV Infusing) 0555 (Not Given - Provider: Benita Tuttle RN - Reason: IV Infusing)1400 (Not Given - Provider: Cora Maguire RN - Reason: IV Infusing)2256 (Not Given - Provider: Benita Tuttle RN - Reason: IV Infusing) 0600 (Due)1400 (Due) spironolactone (ALDACTONE) tablet 25 mg 25 mg, oral, Daily, First dose on Mon07/10/19 at 1515 1625 (Not Given - Provider: Cora Maguire RN - Reason: Patient/family refused) 1000 (Not Given - Provider: Cora Maguire RN - Reason: Patient/family refused) 0801 (Given - Provider: Cora Maguire RN) tranexamic acid (CYKLOKAPRON) 1,350 mg in sodium chloride 0.9% 100 mL (COMPLETED) 1,350 mg (rounded from 1,327.5 mg = 15 mg/kg ? 88.5 kg), intravenous, at 454 mL/hr, Administer over 15 Minutes, Once, On Mon07/10/19 at 0845, For 1 dose, Intra-Op, Administer at time of incision, Indications: Prophylaxis, Surgical 1102 (New Bag - Provider: Leticia Clement CRNA) Continuous Medication Order 07/10/2019 07/11/2019 07/12/2019 Lactated Ringer's (LR) infusion (CANCELED) 30 mL/hr, intravenous, Continuous, Starting on Mon07/10/19 at 0845, Pre-Op 1034 (New Bag - Provider: Serina Rodriguez RN)1037 (Rate/Dose Verify - Provider: Leticia Clement CRNA)1159 (New Bag - Provider: Leticia Clement CRNA)1529 (Stopped - Provider: Cora Maguire RN) sodium chloride 0.9% infusion 125 mL/hr, intravenous, Continuous, Starting on Mon07/10/19 at 1515 1714 (New Bag - Provider: Cora Maguire RN) 1724 (Stopped - Provider: Cora Maguire RN) PRN Medication Order 07/10/2019 07/11/2019 07/12/2019 acetaminophen (TYLENOL) tablet 650 mg 650 mg, oral, Every 6 hours PRN, 1st line for pain, Starting on [place] 07/11/19 at 1326 1333 (Given - Provider: Chrystal Dan RN)2007 (Given - Provider: Benita Tuttle RN) bisacodyl EC (DULCOLAX EC) tablet 10 mg 10 mg, oral, Daily PRN, constipation, If no results 24 hours after milk of magnesia, Starting on Mon07/10/19 at 1430, Do not crush, chew, cut, dissolve, open or otherwise manipulate tablet/capsule. calcium carbonate (TUMS) chewable tablet 1,000 mg 1,000 mg (400 mg of elemental calcium), oral, 2 times daily PRN, indigestion, Starting on Mon07/10/19 at 1430, Indications: Hypocalcemia Prevention diphenhydrAMINE (BENADRYL) tab/cap 25 mg 25 mg, oral, Every 6 hours PRN, itching, Starting on Mon07/10/19 at 1430, Indications: Urticaria HYDROcodone-acetaminophe n (NORCO) 5-325 mg per tablet 1 tablet 1 tablet, oral, Every 4 hours PRN, 1st line for pain, Starting on [place] 07/11/19 at 1051, Indications: Pain 2314 (Given - Provider: Benita Tuttle RN) 0220 (Given - Provider: Susan De León RN)1255 (Given - Provider: Cora Maguire RN - Comment: Back pain) HYDROcodone-acetaminophe n (NORCO) 5-325 mg per tablet 2 tablet 2 tablet, oral, Every 4 hours PRN, 2nd line for pain, Starting on [place] 07/11/19 at 1051, Indications: Pain magnesium hydroxide (MILK OF MAGNESIA) 80 mg/mL (33.3 mg/mL as elemental magnesium) oral suspension 30 mL 30 mL, oral, Daily PRN, constipation, Starting on Mon07/10/19 at 1430 mineral oil (FLEET MINERAL OIL) enema 1 enema 1 enema, rectal, Daily PRN, constipation, if no results 24 hours after bisacodyl, Starting on Mon07/10/19 at 1430, Indications: constipation ondansetron (ZOFRAN) injection 4 mg(Linked Group 1) 4 mg, intravenous, Administer over 2 Minutes, Every 6 hours PRN, nausea, vomiting, if not tolerating PO, Starting on Mon07/10/19 at 1430, Indications: nausea and vomiting 1517 (Given - Provider: Cora Maguire RN) 0857 (Given - Provider: Cora Maguire RN) ondansetron ODT (ZOFRAN-ODT) disintegrating tablet 4 mg(Linked Group 1) 4 mg, oral, Every 6 hours PRN, nausea, vomiting, Starting on Mon07/10/19 at 1430, Indications: nausea and vomiting 1517 (See Alternative - Provider: Cora Maguire RN) 0857 (See Alternative - Provider: Cora Maguire RN) oxyCODONE (ROXICODONE) tablet 5 mg 5 mg, oral, Every 4 hours PRN, breakthrough pain, Starting on Mon07/10/19 at 1430, Indications: Pain 0359 (Given - Provider: Yasmine Carlos, XU)[facility]: Benita Tuttle RN) oxyCODONE-acetaminophen (PERCOCET) 5-325 mg per tablet 2 tablet (CANCELED) 2 tablet, oral, Every 4 hours PRN, 2nd line for pain, Starting on Mon07/10/19 at 1415, Indications: Pain 1425 (Given - Provider: Cora Maguire RN) 0133 (Given - Provider: Benita Tuttle RN)0742 (Given - Provider: Cora Maguire RN) povidone-iodine (BETADINE) 120 mL in sodium chloride 0.9 % 900 mL solution (CANCELED) As needed, Starting on Mon07/10/19 at 1155, Intra-Op 1155 (Given - Provider: Mary Mckenzie MD) prochlorperazine (COMPAZINE) injection 5 mg 5 mg, intravenous, Administer over 2 Minutes, Every 6 hours PRN, nausea, vomiting, Starting on Mon07/10/19 at 1605 1619 (Given - Provider: Cora Maguire RN) 1007 (Given - Provider: Cora Maguire RN) sodium chloride 0.9% flush 0.5-20 mL 0.5-20 mL, intra-catheter, As needed, line care, Starting on Mon07/10/19 at 1430, Flush volume based on line type and size. Flush before and after each use. , Indications: Flushing Linked Groups Order Group 1: ondansetron ODT (ZOFRAN-ODT) disintegrating tablet 4 mgJump to med 4 mg, oral, Every 6 hours PRN, nausea, vomiting, Starting on Mon07/10/19 at 1430, Indications: nausea and vomiting Or ondansetron (ZOFRAN) injection 4 mgJump to med 4 mg, intravenous, Administer over 2 Minutes, Every 6 hours PRN, nausea, vomiting, if not tolerating PO, Starting on Mon07/10/19 at 1430, Indications: nausea and vomiting documented in this encounter Orders Medications Ordered That Alhaji ht Not Have Been Administered Count Last Ordered Date First Ordered Date HYDROcodone-acetaminophen (N ORCO) 5-325 mg per tablet 2 tablet 1 07/11/2019 bisacodyl EC (DULCOLAX EC) tablet 10 mg 1 0 07/10/2019 calcium carbonate (TUMS) chana wable tablet 1,000 mg 1 07/10/2019 ceFAZolin (ANCEF) 1 gram/10 mL in sterile water (premix) 2,000 mg 07/10/2019 diphenhydrAMINE (BENADRYL) tab/cap 25 mg 07/10/2019 famotidine (PEPCID) tablet 20 mg 1 07/10/19 20 fentaNYL (SUBLIMAZE) preserv ative free injection 25 mcg 07/10/2019 fentaNYL (SUBLIMAZE) preserv ative free injection 50 mcg 07/10/2019 magnesium hydroxide (MILK OF MAGNESIA) 80 mg/mL (33.3 mg/mL as elemental magnesium) oral suspension 30 mL 07/10/2019 mineral oil (FLEET MINERAL O IL) enema 1 enema 07/10/2019 naloxone (NARCAN) 0.4 mg/mL injection 0.04-0.4 mg 07/10/2019 ondansetron (ZOFRAN) injection 4 mg 07/10 ondansetron ODT (ZOFRAN-ODT) disintegrating tablet 4 mg 1 07/10/2019 oxyCODONE-acetaminophen (PER COCET) 5-325 mg per tablet 1 tablet 1 07/10/[address] (PROTONIX) e xtended release tablet 20 mg 1 07/10/2019 sodium chloride 0.9% flush 0.5-20 mL 3 06/20 tranexamic acid (CYKLOKAPRON ) 1,350 mg in sodium chloride 0.9% 100 mL 1 07/10/2019 General Supply Count Last Ordered Date First Or dered Date WALKER 1 07/11/2019 Diet Count Last Ordered Date First Orde red Date ADULT DISCHARGE DIET 1 07/11/2019 Nursing Count Last Ordered Date First Orde red Date DISCHARGE ACTIVITY 4 07/11/2019 DISCHARGE CALL PROVIDER 5 07/11/2019 DISCHARGE DRESSING 7 07/11/2019 DISCHARGE INSTRUCTIONS 1 07/11/2019 FOLLOW UP WITH ESTABLISHED PROVIDER 1 07/11 Transfer Count Last Ordered Date First Orde red Date TRANSFER PATIENT 1 07/04/2019 documented in this encounter Care Teams Aircraft Launch And Recovery Technician Relationship Specialty Start Date End Date Pepper Morgan MD PCP - General 09/16/16 Hank Garibay MD [address] [facility] [address] [place] [address] Surgeon Orthopedic Surgery 03/27/17 Jacky Murry MD [address] [facility] [address] [place] [address] Ophthalmology 03/27/17 documented as of this encounter
--- OUTSIDE RECORDS SUMMARY | 2024-06-18 19:02 | XMS_ITS | Encounter Summary ---
Author Organization [facility] Facility Care Team Providers Care Aerospace Engineer Officer Armament Name Role Phone Pepper Morgan MD Primary Care Provider + [phone] Hank Garibay MD Unavailable [phone] Jacky Murry MD Unavailable [phone] Encounter Details Date Type Department Care Team (Latest Contact Info) Description 06/24/2019 Travel Social History Tobacco Use Types Packs/Day Years Used Date Smoking Tobacco: Former Smokeless Tobacco: Never Alcohol Use Standard Drinks/Week Comments Not Currently 0 (1 standard drink = 0.6 oz pur e alcohol) PHQ-2 Answer Date Recorded PHQ-2 Score 0 05/14/2019 Comments No Sex and Gender Information Value Date Recorded Sex Assigned at Not on file Legal 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 Gender Identity Not on file Sexual Orientation Not on file Occupation Industry Job Start Date Job End Date retired Not on file Not on file Not on file documented as of this encounter Plan of Treatment Not on file documented as of this encounter Visit Diagnoses Not on filedocumented in this encounter Care Teams Aerospace Engineer Officer Armament Relationship Specialty Start Date End Date Pepper Morgan MD PCP - General 09/16/16 Hank Garibay MD [address] [place] [address] [address] [place] [address] Surgeon Orthopedic Surgery 03/27/17 Jacky Murry MD [address] [facility] [address] [place] [address] Ophthalmology 03/27/17 documented as of this encounter
--- OUTSIDE RECORDS SUMMARY | 2024-06-18 19:02 | XMS_ITS | Encounter Summary ---
Author Organization [facility] Address [address] [facility] [address] [place] [address] Care Team Providers Care Manager Harbor Name Role Phone Pepper Morgan MD Primary Care Provider [phone] Hank Garibay MD Unavailable [phone] Jacky Murry MD Unavailable [phone] Reason for Visit * Reason Comments Follow-up Blood Pressure, stom ach and meds Encounter Details Date Type Department Care Team (Latest Contact Info) Description 06/24/2019 9:00 AM APICULTURIST Office Visit [facility] [address] [place] [id number] Jacqueline Fuller NP [address] [place] [address] Chronic pain disorder (Primary Dx); Benign hypertension; Chronic GERD Social History Tobacco [...] on file Legal Sex Female 4:33 AM APICULTURIST Gender Identity Not on file Sexual Orientation Not on file Occupation Industry Job Start Date Job End Date retired Not on file Not on file Not on file documented as of this encounter Last Filed Vital Signs Vital Sign Reading Time Taken Comments Blood Pressure 130/80 06/24/2019 8:55 AM APICULTURIST Pulse 68 06/24/2019 8:55 AM APICULTURIST Temperature 36.1 ??C (97 ??F) 06/24/2019 8:55 AM APICULTURIST Respiratory Rate 12 06/24/2019 8:55 AM APICULTURIST Oxygen Saturation 95% 06/24/2019 8:55 AM APICULTURIST Inhaled Oxygen Concentration - - Weight 88.5 kg (195 lb) 06/24/2019 8:55 AM APICULTURIST Height - - Body Mass Index 37.46 05/14/2019 10:16 AM APICULTURIST documented in this encounter Patient Instructions * Patient Instructions* Jacqueline Fuller NP - 06/24/2019 9:00 AM APICULTURIST Instructions for front desk clerk Please arrange f/u post op with myself or Dr. Morgan in August Instructions to patient Please complete your pre-op testing as ordered Please take medications as prescribed Please continue to monitor you blood pressure Please call with any questions or concerns ULTURIST ULTURIST documented in this encounter Progress Notes * Jacqueline Fuller NP - 06/24/2019 9:00 AM CST Subjective/Objective Patient ID: Tess Benedict is a 83 y.o. female. Chief Complaint Follow-up (Blood Pressure, stomach and meds) HPI She is using two aleve in the am for pain in the rt hip No stomach upset has seen improvement since starting protonix She brought her blood pressure readings with her and BP well controlled with SBP <140 and DBP <90 Review of Systems Constitutional: Negative for chills and fever. Respiratory: Negative for cough, chest tightness and shortness of breath. Cardiovascular: Negative for chest pain, palpitations and leg swelling. Gastrointestinal: Negative for constipation, diarrhea, nausea and vomiting. Musculoskeletal: Positive for arthralgias (rt hip ) and gait problem (uses a walker in am for ambulation ). Neurological: Positive for weakness. Negative for dizziness, light-headedness and numbness. Physical Exam Vitals signs and nursing note [...] and all orders for this visit: Chronic pain disorder (G89.4) (Primary) Assessment & Plan: She has plans for rt hip replacement later this month. At this time will continue with aleve for pain. She chose not to pursue pain management. She will have labs, EKG and CXR completed pre-op as ordered by ortho. If no significant findings on testing she would be considered an acceptable surgical risk for planned procedure. Benign hypertension (I10) Assessment & Plan: Well controlled will continue present regimen. Chronic GERD (K21.9) Assessment & Plan: Symptoms have improved with protonix. She has had no further issues. We will continue with present regimen. Cosigned by Nile Arroyo MD at 06/24/2019 12:56 PM APICULTURIST ULTURIST ULTURIST documented in this encounter Miscellaneous Notes * Assessment & Plan Note - Jacqueline Fuller NP - 06/24/2019 12:50 PM CSTAssociated Problem(s): Benign hypertension Well controlled will continue present regimen. ULTURIST * Assessment & Plan Note - Jacqueline Fuller NP - 06/24/2019 12:48 PM CSTAssociated Problem(s): Chronic pain disorder (Resolved 12/08/2022) She has plans for rt hip replacement later this month. At this time will continue with aleve for pain. She chose not to pursue pain management. She will have labs, EKG and CXR completed pre-op as ordered by ortho. If no significant findings on testing she would be considered an acceptable surgical risk for planned procedure. ULTURIST * Assessment & Plan Note - Jacqueline Fuller NP - 06/24/2019 9:31 AM CSTAssociated Problem(s): Chronic GERD Symptoms have improved with protonix. She has had no further issues. We will continue with present regimen. ULTURIST documented in this encounter Plan of Treatment Not on file documented as of this encounter Visit Diagnoses Diagnosis Chronic pain disorder- Primary Chronic pain syndrome Benign hypertension Essential hypertension, benign Chronic GERD documented in this encounter Care Teams Manager Harbor Relationship Specialty Start Date End Date Pepper Morgan MD PCP - General 09/16/16 Hank Garibay MD [address] [place] [address] DR WARNER Sheridan [facility] [address] [place] [address] Surgeon Orthopedic Surgery 03/27/17 Jacky Murry MD [address] [place] [address] DR WARNER Sheridan [facility] [address] [place] [address] Ophthalmology 03/27/17 documented as of this encounter
--- OUTSIDE RECORDS SUMMARY | 2024-06-18 19:02 | XMS_ITS | Encounter Summary ---
Author Organization [facility] Address [address] [facility] [address] [place] [address] Care Team Providers Care Editor Greeting Card Name Role Phone Pepper Morgan MD Primary Care Provider + [phone] Hank Garibay MD Unavailable [phone] Jacky Murry MD Unavailable [phone] Encounter Details Date Type Department Care Team (Late st Contact Info) Description 05/14/2019 Telephone [facility] [address] [place] [phone] Pepper Morgan MD [address] [place] [address] Social History Tobacco Use Types Packs/Day Years Used Date Smoking Tobacco: Former Smokeless Tobacco: Never Alcohol Use Standard Drinks/Week Comments Not Currently 0 (1 standard drink = 0.6 oz pur e alcohol) PHQ-2 Answer Date Recorded PHQ-2 Score 0 05/14/2019 Comments No Sex and Gender Information Value Date Recorded Sex Assigned at Not on file 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 Copy DMV sticker 2. Pain management referral for lumbar spinal stenosis offered with Dr. Jim or Dr. Eula horner, she will call back if she becomes interested 3. The DEXA bone density at next lab 4. She is not interested in mammogram, if she would like a screening mammogram she is welcome 5.Advanced directives AMS staff will copy POA and advanced directives completed today to scan into [facility] and place a paper copy of these documents into the Paper chart. We will Return the originals to patient to keep with personal legal records Number 1. DMV forms completed by pt/KMS, sent back to [facility] for mailing Number 2. Pt wants to wait on referral to PM and see how meds go after todays visit. Pt aware to call us for referral when shes ready. Number 3. Bone density ordered. Pt wants to wait and schedule this after holidays. Scheduling number given to pt. 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
--- OUTSIDE RECORDS SUMMARY | 2024-06-18 19:02 | XMS_ITS | Encounter Summary ---
Author Organization [facility] Address [address] [facility] [address] [place] [address] Care Team Providers Care Video Game Repair Technician Name Role Phone Pepper Morgan MD Primary Care Provider + [phone] Hank Garibay MD Unavailable [phone] Jacky Murry MD Unavailable [phone] Reason for Visit * Reason Onset Date Comments wants surgery 06/03/2019 Encounter Details Date Type Department Care Team (Late st Contact Info) Description 06/03/2019 Telephone [facility] Orthopedics and Sports Medicine [address] [place] [address] [address] [place] [address] Puma Mckenzie MD [address] [place] [address] [address] [place] [address] wants surgery Social History Tobacco Use Types Packs/Day Years Used Date Smoking Tobacco: Former Smokeless Tobacco: Never Alcohol Use Standard Drinks/Week Comments Not Currently 0 (1 standard drink = 0.6 oz pur e alcohol) PHQ-2 Answer Date Recorded PHQ-2 Score 0 05/14/2019 Comments No Sex and Gender Information Value Date Recorded Sex Assigned at Not on file 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 Morgan has been mailed to patient WORKER * Telephone Encounter - Mckenzie Collins MA - 06/03/2019 11:52 AM CST Please call the patient, Dr. Cole office called and stated patient called them, but she does not have her paperwork for clearance. Thank you WORKER * Telephone Encounter - Bri Kat - 06/03/2019 10:00 AM CST Patient called stating injection she got in March is not helping and wants to discuss surgery on her RT hip. Made her appointment with for Jun.27 and tentative surgery date of 07-10-19 WORKER documented in this encounter Plan of Treatment Not on file documented as of this encounter Visit Diagnoses Not on filedocumented in this encounter Care Teams Video Game Repair Technician Relationship Specialty Start Date End Date Pepper Morgan MD PCP - General 09/16/16 Hank Garibay MD [address] [place] [address] DR WARNER Sheridan [facility] [address] [place] [address] Surgeon Orthopedic Surgery 03/27/17 Jacky Murry MD [address] [place] [address] DR WARNER Sheridan [facility] [address] [place] [address] Ophthalmology 03/27/17 documented as of this encounter
--- OUTSIDE RECORDS SUMMARY | 2024-06-18 19:02 | XMS_ITS | Encounter Summary ---
Author Organization [facility] Address [address] [facility] [address] [place] [id number] Care Team Providers Care Branch Account Manager Name Role Phone Pepper Morgan MD Primary Care Provider [phone] Hank Garibay MD Unavailable [phone] Jacky Murry MD Unavailable [phone] Reason for Visit * Reason Comments Annual Exam Encounter Details Date Type Department Care Team (Late st Contact Info) Description 05/14/2019 10:00 AM SYRUP BLENDER Office Visit [facility] [address] [place] [address] Pepper Morgan MD [address] [place] [address] Annual physical exam (Primary Dx); Benign hypertension; Hereditary essential tremor; Restless legs syndrome; Primary osteoarthritis of right hip; History of malignant melanoma; Spinal stenosis of lumbar region with neurogenic claudication; [facility] (current) use of non-steroidal anti-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s (nsaid); Senile purpura (CMS/HCC); Menopause; Obesity (BMI 30-39.9) Social History Tobacco Use Types Packs/Day Years Used Date Smoking Tobacco: Former Smokeless Tobacco: Never Alcohol Use Standard Drinks/Week Comments Not Currently 0 (1 standard drink = 0.6 oz pur e alcohol) PHQ-2 Answer Date Recorded PHQ-2 Score 0 05/14/2019 Comments No Sex and Gender Information Value Date Recorded Sex Assigned at Not on file Legal Sex Female 4:33 AM SYRUP BLENDER Gender Identity Not on file Sexual Orientation Not on file Occupation Industry Job Start Date Job End Date retired Not on file Not on file Not on file documented as of this encounter Last Filed Vital Signs Vital Sign Reading Time Taken Comments Blood Pressure 176/84 05/14/2019 10:16 AM SYRUP BLENDER Pulse 60 05/14/2019 10:16 AM SYRUP BLENDER Temperature 36.2 ??C (97.2 ??F) 05/14/2019 10:[address] Respiratory Rate 12 05/14/2019 10:16 AM SYRUP BLENDER Oxygen Saturation 96% 05/14/2019 10:16 AM SYRUP BLENDER Inhaled Oxygen Concentration - - Weight 86.6 kg (191 lb) 05/14/2019 10:16 AM SYRUP BLENDER Height 153.7 cm (5' 0.5 ) 05/14/2019 10:16 AM CS T Body Mass Index 36.69 05/14/2019 10:16 AM SYRUP BLENDER documented in this encounter Patient Instructions * Patient Instructions* Pepper Morgan MD - 05/14/2019 10:00 AM SYRUP BLENDER Orders for AMS STAFF to arrange 1. Copy DMV sticker 2. Pain management [...] advanced directives completed today to scan into [facility] and place a paper copy of these documents into the Paper chart. We will Return the originals to patient to keep with personal legal records. For comprehensive documentation of your Healthcare directives, I recommend that you fill out paperwork for 5 WISHES online at [email or web address] and return a copy of the completed forms to my office. Orders for Tess Benedict to arrange 1. Resume home blood pressure [...] Dr. Davis to evaluate for progressive lenses Patient Care Team: Pepper Morgan MD as PCP - General Pepper Morgan MD as PCP - [facility] Attributed PCP Hank Garibay MD as Surgeon (Orthopedic Surgery) Jacky Murry MD (Ophthalmology) Return in about 4 weeks (around 06/11/2019) for BEAUTY COUNSELOR visit for pain & GI mobic +protonix. &BP: KMS 6 months. Orders Placed This Encounter Procedures ??? Dexa Axial Skeleton Bone Density 1 or 2 Site A brief review of all your problems, medications, and orders from today ICD-9-CM ICD-10-CM 1. Annual physical exam V70.0 Z00.00 2. Benign hypertension 401.1 I10 propranolol (INDERAL) 20 mg tablet felodipine (PLENDIL) 5 mg 24 hr tablet spironolactone (ALDACTONE) 25 mg tablet 3. Hereditary essential tremor 333.1 G25.0 propranolol (INDERAL) 20 mg tablet 4. Restless legs syndrome 333.94 G25.81 pramipexole (MIRAPEX) 0.125 mg tablet tiZANidine (ZANAFLEX) 2 mg tablet 5. Primary osteoarthritis of right hip 715.15 M16.11 6. History of malignant melanoma V10.82 Z85.820 7. Spinal stenosis of lumbar region with neurogenic claudication 724.03 M48.062 meloxicam (MOBIC) 7.5 mg tablet tiZANidine (ZANAFLEX) 2 mg tablet 8. [facility] (current) use of non-steroidal anti-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s (nsaid) V58.[address] (PROTONIX) 20 mg EC tablet 9. Senile purpura (CMS/HCC) 287.2 D69.2 10. Menopause 627.2 Z78.0 Dexa Axial Skeleton Bone Density 1 or 2 Site 11. Obesity (BMI 30-39.9) 278.00 E66.9 For your records I have provided this [...] 04/26/2016 ??? Tdap 05/18/2011 Primary Pharmacy/DME suppliers: [id number] - [place] - [address] AT [facility] [address] [place] [address] PLEASE BRING IN ALL PILL BOTTLES TO EVERY OFFICE VISIT, THIS IS ESSENTIAL FOR ACCURATE REFILLS AND MAINTAINING AN ACCURATE MEDICATION LIST. PLEASE SIGN UP FOR MyCHART so that you may have access to your labs and chart documentation IF YOU HAVE TROUBLE WITH THIS PROCESS CALL [phone] Annual Exam finds the need for diet [...] health are documented on this information sheet. P BLENDER P BLENDER P BLENDER P BLENDER P BLENDER P BLENDER P BLENDER P BLENDER P BLENDER P BLENDER documented in this encounter Ordered Prescriptions Prescription Sig Dispense Quantity Refills Last Filled Start Date End Date tiZANidine (ZANAFLEX) 2 mg tabletIndications: Restless legs syndrome,Spinal stenosis of lumbar region with neurogenic claudication Take 1 tablet (2 mg total) by mouth every 6 (six) hours as needed for muscle spasms 40 tablet 1 05/14/2019 0 meloxicam (MOBIC) 7.5 mg tabletIndications: Spinal stenosis of lumbar region with neurogenic claudication Take 1 tablet (7.5 mg total) by mouth daily With the largest meal 30 tablet 6 05/14/[address] (PROTONIX) 20 mg EC tabletIndications: [facility] (current) use of non-steroidal anti-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 s (nsaid) Take 1 tablet (20 mg total) by mouth daily With the largest meal 30 tablet 6 05/14/2019 0 spironolactone (ALDACTONE) 25 mg tabletIndications: Benign hypertension Take 1 tablet (25 mg total) by mouth daily 30 tablet 6 05/14/2019 0 felodipine (PLENDIL) 5 mg 24 hr tabletIndications: Benign hypertension Take 1 tablet (5 mg total) by mouth daily 90 tablet 1 05/14/2019 0 pramipexole (MIRAPEX) 0.125 mg tabletIndications: Restless legs syndrome Take 1-2 tablets by mouth every day 180 tablet 2 05/14/2019 0 propranolol (INDERAL) 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: Benign hypertension,Hered itary essential tremor Take 1 tablet (20 mg total) by mouth 2 (two) times a day 180 tablet 2 05/14/2019 0 documented in this encounter Progress Notes * Pepper Morgan MD - 05/14/2019 10:00 AM CST ASSESSMENT AND PLAN Patient Instructions Orders for AMS STAFF to arrange 1. Copy DMV sticker 2. Pain management [...] advanced directives completed today to scan into Epic and place a paper copy of these documents into the Paper chart. We will Return the originals to patient to keep with personal legal records. For comprehensive documentation of your Healthcare directives, I recommend that you fill out paperwork for 5 WISHES online at [email or web address] and return a copy of the completed forms to my office. Orders for Tess Benedict to arrange 1. Resume home blood pressure [...] Dr. Davis to evaluate for progressive lenses Patient Care Team: Pepper Morgan MD as PCP - General Pepper Morgan MD as PCP - [facility] Attributed PCP Hank Garibay MD as Surgeon (Orthopedic Surgery) Jacky Murry MD (Ophthalmology) Return in about 4 weeks (around 06/11/2019) for BEAUTY COUNSELOR visit for pain & GI mobic +protonix. &BP: KMS 6 months. Orders Placed This Encounter Procedures ??? Dexa Axial Skeleton Bone Density 1 or 2 Site A brief review of all your problems, medications, and orders from today ICD-9-CM ICD-10-CM 1. Annual physical exam V70.0 Z00.00 2. Benign hypertension 401.1 I10 propranolol (INDERAL) 20 mg tablet felodipine (PLENDIL) 5 mg 24 hr tablet spironolactone (ALDACTONE) 25 mg tablet 3. Hereditary essential tremor 333.1 G25.0 propranolol (INDERAL) 20 mg tablet 4. Restless legs syndrome 333.94 G25.81 pramipexole (MIRAPEX) 0.125 mg tablet tiZANidine (ZANAFLEX) 2 mg tablet 5. Primary osteoarthritis of right hip 715.15 M16.11 6. History of malignant melanoma V10.82 Z85.820 7. Spinal stenosis of lumbar region with neurogenic claudication 724.03 M48.062 meloxicam (MOBIC) 7.5 mg tablet tiZANidine (ZANAFLEX) 2 mg tablet 8. [facility] (current) use of non-steroidal anti-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s (nsaid) V58.[address] (PROTONIX) 20 mg EC tablet 9. Senile purpura (CMS/HCC) 287.2 D69.2 10. Menopause 627.2 Z78.0 Dexa Axial Skeleton Bone Density 1 or 2 Site 11. Obesity (BMI 30-39.9) 278.00 E66.9 For your records I have provided this [...] 04/26/2016 ??? Tdap 05/18/2011 Primary Pharmacy/DME suppliers: [id number] - [place] - [address] AT [facility] [address] [place] [address] PLEASE BRING IN ALL PILL BOTTLES TO EVERY OFFICE VISIT, THIS IS ESSENTIAL FOR ACCURATE REFILLS AND MAINTAINING AN ACCURATE MEDICATION LIST. PLEASE SIGN UP FOR MyCHART so that you may have access to your labs and chart documentation IF YOU HAVE TROUBLE WITH THIS PROCESS CALL [phone] Annual Exam finds the need for diet [...] health are documented on this information sheet. CHIEF COMPLAINT Annual Exam HISTORY OF PRESENT [...] discontinued medication prescriptions ORDERS FROM LAST VISIT October 30 1. LDL, chemistry panel before annual visit 6 months Screening mammogram if she will be interested DEXA bone density will be due before the annual = menopause ?? 2. 2-4 week follow-up with FRANC[facility] for blood pressure re-evaluation with the home monitor ?? DETAILS REGARDING THIS VISIT: Tess reports feeling poorly 1. Annual physical exam Documented on the annual information sheet FURTHER NON ANNUAL PHYSICAL DETAILS REGARDING THIS VISIT: 2. Benign hypertension Blood pressure not well controlled, systolic at 190 here today. She has noticed her systolics at 1:40 a.m. At home but she has not taken in quite a while. She is under but distress having 10 people to home for the holiday later this week. Her other risk factor is the addition of naproxen to her medication regimen however she had been on her off Aleve in the past and that never caused her blood pressure to go up. She has agreed to trial Aldactone 25 mg in the morning and she will follow-up with N.P. In a month with home meter 3. Hereditary essential tremor, poorly controlled hypertension Her pulses limited to 60 the she cannot tolerate any more medicine. She has previously had GI upsetwith primidone and does not want to try any other medications. Aldactone is started today as a new blood pressure medication - propranolol (INDERAL) 20 mg tablet; Take 1 tablet (20 mg total) by mouth 2 (two) times a day Dispense: 180 tablet; Refill: 2 4. Restless legs syndrome , low back pain with ambulatory difficulty all consistent with spinal stenosis. Newly diagnosed NSAID gastritis This diagnosis of spinal stenosis is new today. Her osteoarthritis is known. She saw Dr. Mckenzie consultation regarding bilateral hip pain at cortisone injection in the right hip with about 70% improvement in her pain for 3 days and is now back to the same amount of pain. She develops severe dyspepsia with naproxen resume believing had similar severe dyspepsia. She was eating very little when shetook the medicine and is at risk for nonsteroidal-induced gastritis because of her previous bariatric surgery. She was not using anything to protect her stomach. She has never had an MRI done does not like the machine. She is having significant back pain problems and is interested in further evaluation if medications are not tolerated Mirapex is working quite well occasionally requiring 2 daily, in order to help with her severe spinal stenosis related back pain problems we are going to be adding Zanaflex at night. She notices improvement in her back pain and the ability to sleep by slipping on ice but the ice does interfere withthe consistency of her sleep 5. Primary osteoarthritis of right hip , spinal stenosis of lumbar spine suspected Right hip pain and also left hip, and lumbar spine with symptoms of significant spinal stenosis with the tendency to the legs to get weak as she is walking further and resolve the weakness when she rests. No MRI is been done of her back yet. She is a bit claustrophobic and is not interested in an MRI. She is having neurogenic claudication symptoms with low back pain, squeezing sensation in her legs and calves, limited walking ability that does improve after rest. Pain management referral is offered and declined at the moment, she will continue working on quadriceps strengthening at home and has had no falls. DMV sticker is recommended 6. History of m with underlying symptoms of alignant melanoma No evidence recurrent melanoma, the atrophy in the left arm is unchanged from her previous surgery 8. 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 She will take this with largest meal to be able to tolerate the best option for anti-inflammatory for her hip and back pain problem. This does not work we coming off of both Protonix and Mobic. She notably previously did not tolerate Celebrex which caused dyspepsia. - pantoprazole DR (PROTONIX) 20 mg EC tablet; Take 1 tablet (20 mg total) by mouth daily With the largest meal Dispense: 30 tablet; Refill: 6 9. Senile purpura (CMS/HCC) NSAIDS are associated with some platelet disorder as she is developed easy bruising on the hands requiring no further workup PAST MEDICAL HISTORY Past Medical History: Diagnosis Date ??? Arthritis of ankle ??? Basal cell carcinoma of nose 09/2008 ??? Fibrocystic breast ??? 4, not currently para 3 miss 1 ??? Heel spur, unspecified laterality ??? Hx of rheumatic fever ??? HX OTHER MEDICAL 1992 strangulated hernia ??? HX OTHER MEDICAL back pain; Comments: APO 01/13/2014 - ??? HX OTHER MEDICAL melanoma surgery; Comments: APO 01/13/2014 - ??? HX OTHER MEDICAL gastroplasty; Comments: APO 01/13/2014 - ??? Joint pain 04/2002 ??? Left foot [...] REPLACEMENT TOTAL KNEE Left 02/07/2017 Dr. Meier FAMILY HISTORY family history includes Abdominal Aortic [...] resource strain: Not on file ??? Food insecurity: Worry: Not on file Inability: Not on file ??? Transportation needs: Medical: Not on file Non-medical: Not on file Tobacco Use ??? Smoking status: Former Smoker ??? Smokeless tobacco: Never Used Substance and Sexual Activity ??? Alcohol use: Not Currently ??? Drug use: Never ??? Sexual activity: Defer Lifestyle ??? Physical activity: Days per week: Not on file Minutes per session: Not on file ??? Stress: Not on file Relationships ??? Social connections: Talks on phone: Not on file Gets together: Not on file Attends voodoo service: Not on file Active member of club or organization: Not on file Attends meetings of clubs or organizations: Not on file Relationship status: Not on file ??? Intimate partner violence: Fear of current or ex partner: Not on file Emotionally abused: Not on file Physically abused: Not on file Forced sexual activity: Not on file Other Topics Concern ??? Not on file Social History Narrative ??? Not on file THE REVIEW OF SYSTEMS Review of Systems Constitutional: Negative for fatigue, fever and unexpected weight [...] and vaginal discharge. Musculoskeletal: Positive for arthralgias (In both hips right probably worse than left), back pain and gait problem. Negative for [...] Discontinued During This Encounter Medication Reason ??? naproxen (NAPROSYN) 500 mg tablet Therapy completed ??? naproxen sodium 220 mg capsule Therapy completed ??? propranolol (INDERAL) 20 mg tablet Reorder ??? pramipexole (MIRAPEX) 0.125 mg tablet Reorder ??? felodipine (PLENDIL) 5 mg 24 hr tablet Reorder MEDICATION LIST AT CONCLUSION OF THIS VISIT Current Outpatient Medications Ordered in [facility] Medication Sig Dispense Refill ??? cholecalciferol (VITAMIN D3) 2,000 unit tablet Take 2,000 Units by mouth daily ??? famotidine-Ca carb-mag hydrox (PEPCID COMPLETE) 10-800-165 mg chewable tablet Take 1 tablet by mouth daily as needed for heartburn. ??? felodipine (PLENDIL) 5 mg 24 hr tablet Take 1 tablet (5 mg total) by mouth daily 90 tablet 1 ??? pramipexole (MIRAPEX) 0.125 mg tablet Take 1-2 tablets by mouth every day 180 tablet 2 ??? propranolol (INDERAL) 20 mg tablet Take 1 tablet (20 mg total) by mouth 2 (two) times a day 180tablet 2 ??? albuterol HFA (PROVENTIL HFA,VENTOLIN HFA,PROAIR HFA) 90 mcg/actuation inhaler INHALE 1 TO 2 PUFFS PO Q 4 H PRN SOB 0 ??? meloxicam (MOBIC) 7.5 mg tablet Take 1 tablet (7.5 mg total) by mouth daily With the largest meal 30 tablet 6 ??? pantoprazole DR (PROTONIX) 20 mg EC tablet Take 1 tablet (20 mg total) by mouth daily With the largest meal 30 tablet 6 ??? spironolactone (ALDACTONE) 25 mg tablet Take 1 tablet (25 mg total) by mouth daily 30 tablet 6 ??? tiZANidine (ZANAFLEX) 2 mg tablet Take 1 tablet (2 mg total) by mouth every 6 (six) hours as needed for muscle spasms 40 tablet 1 No current [facility]-ordered facility-administered medications on file. ALLERGIES is allergic to celecoxib; sulfa (sulfonamide antibiotics); lisinopril; trazodone; amlodipine; and scopolamine. PHYSICAL EXAM body mass index is 36.69 kg/m??. height is 153.7 cm (5' 0.5 ) and weight is 86.6 kg (191 lb). Her tympanic temperature is 36.2 ??C (97.2 ??F). Her blood pressure is 176/84 (abnormal) and her pulse is 60. Her respiration is 12 and oxygen saturation is 96%. Physical Exam Vitals signs reviewed. Constitutional: General: She is not in acute distress. Appearance: Normal appearance. She is well-developed. She is obese. HENT: Head: Normocephalic and atraumatic. Right Ear: Tympanic membrane and external ear normal. Left Ear: Tympanic membrane and external ear normal. Nose: Nose normal. No congestion or rhinorrhea. Mouth/Throat: Mouth: Mucous membranes are moist. Pharynx: Oropharynx is clear. No oropharyngeal exudate. Eyes: General: No scleral icterus. Conjunctiva/sclera: Conjunctivae normal. Pupils: Pupils are equal, round, and reactive to light. Neck: Musculoskeletal: Neck supple. Thyroid: No thyromegaly. Cardiovascular: Rate and Rhythm: Normal rate and regular rhythm. Pulses: Normal pulses. Heart sounds: Normal heart sounds. No murmur. No gallop. Pulmonary: Effort: Pulmonary effort is normal. Breath sounds: Normal breath sounds. No wheezing, rhonchi or rales. Abdominal: General: Bowel sounds are normal. There is no distension. Palpations: Abdomen is soft. There is no mass. Tenderness: There is no tenderness. There is no guarding or rebound. Hernia: No hernia is present. Genitourinary: Comments: She has declined, no Genitourinary examination performed She has healthy bilateral breast examination Musculoskeletal: Normal range of motion. General: Deformity ( atrophy of the entire left on unchanged from previous examination) present. Noswelling, tenderness or signs of injury. Lymphadenopathy: Cervical: No cervical adenopathy. Skin: General: Skin is warm and dry. Coloration: Skin is not jaundiced. Findings: Rash ( senile purpura on the hands and forearms unchanged from previous exam) present. Nobruising, erythema or lesion. Neurological: General: No focal deficit present. Mental Status: She is alert and oriented to person, place, and time. Mental status is at baseline. Cranial Nerves: No cranial nerve deficit. Sensory: No sensory deficit. Motor: Weakness (Left hand compared to right with previous melanoma surgery) present. No abnormal muscle tone. Coordination: Coordination normal. Gait: Gait normal. Deep Tendon Reflexes: Reflexes abnormal ( there is increased tone in the arms volume doing this exam but she does not have reproducible reflexes in upper or lower extremities today). Psychiatric: Mood and Affect: Mood normal. Behavior: [...] ?? Health Maintenance Topic Date Due ??? Fall Risk Assessment 1935 ??? Depression Screening-PHQ 1935 ??? Osteoporosis Screening-Bone Density Scan 1935 ??? Zoster Vaccines 11/24/1987 ??? Regular Well Visit/Exam 05/01/2019 ??? DTaP/Tdap/Td Vaccine (2 - Td) 05/18/2021 ? ? Pneumococcal (PCV13 & PPSV23) 65+ [...] HEALTH MAINTENANCE TESTING DOCUMENTED WHEN POSSIBLE IN [facility] FLOW SHEETS INCLUDING:PHQ depression screening, HRA screening, cognitive evaluation with 3 ITEM RECALL( with clock draw and BARD ADL/IADL screening when appropriate), FALL RISK ASSESSMENT. Appropriate documented not available on [employer] are on the scanned preventive health document created today. TECHNOLOGIES DIVISION CHAIR REVIEW COMPLETED WITH administrative tasks including DME provider recommendations when Appropriate. THE PHARMACY SECTION CONTAIN primary secondary and mail order pharmacy choices selected by Tess Morgan M.D. THE FOLLOWING CLERICAL INFORMATION DOES NOT DUE TO BE SENT IN A PRINTED DOCUMENT LABS REVIEWED WITH Tess Benedict THIS VISIT Lab on 03/18/2019 Component Date Value Ref [...] Patient Active Problem List Diagnosis Code ??? Transient insomnia F51.02 ??? 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 Chronic GERD K21.9 ??? Benign hypertension I10 ??? Restless legs syndrome G25.81 ??? History of melanoma Z85.820 ??? 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 Insomnia, persistent G47.00 ??? Chronic pain disorder G89.4 ??? Knee joint replacement status, bilateral Z96.653 ??? Obesity (BMI 30-39.9) E66.9 ??? History of basal cell carcinoma (BCC) Z85.828 ??? History of malignant melanoma Z85.820 ??? Dizziness R42 ??? Primary osteoarthritis of right hip M16.11 ??? History of arthroplasty of right knee Z96.651 P BLENDER documented in this encounter Plan of Treatment Not on file documented as of this encounter Visit Diagnoses Diagnosis Annual physical exam- Primary Routine general medical examination at a health care facility Benign hypertension Essential hypertension, benign Hereditary essential tremor Essential and other specified forms of tremor Restless legs syndrome Restless legs syndrome (RLS) Primary osteoarthritis of right hip History of malignant melanoma Personal history of malignant melanoma of skin Spinal stenosis of lumbar region with neurogenic claudication 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) Senile purpura (CMS/HCC) (HCC) Other nonthrombocytopenic purpuras Menopause Symptomatic menopausal or female climacteric states Obesity (BMI 30-39.9) documented in this encounter Discontinued Medications Medication Sig Discontinue Reason Start Date End Da te naproxen (NAPROSYN) 500 mg tablet Take 1 tablet (500 mg total) by mouth 2 (two) times a day with meals Therapy completed 05/08/2019 05/14/2019 naproxen sodium 220 mg capsule Take by mouth Therapy completed 05/14/2019 propranolol (INDERAL) 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:Benign hypertension,Hereditary essential tremor Take 1 tablet (20 mg total) by mouth 2 (two) times a day Reorder 10/30/2018 05/14/2019 pramipexole (MIRAPEX) 0.125 mg tabletIndications:Restles s legs syndrome Take 1-2 tablets by mouth every day Reorder 10/30/2018 05/14/2019 felodipine (PLENDIL) 5 mg 24 hr tabletIndications:Benign hypertension Take 1 tablet (5 mg total) by mouth daily Reorder 04/30/2019 05/14/2019 documented as of this encounter Historical Medications * This list may reflect changes made after this encounter. cholecalciferol (VITAMIN D-3) 2000 unit tablet Take 1 tablet (2,000 Units total) by mouth daily naproxen sodium 220 mg capsule Take by mouth 019 added in this encounter Care Teams Branch Account Manager Relationship Specialty Start Date End Date Pepper Morgan MD PCP - General 09/16/16 Hank Garibay MD [address] [place] [address] [address] [place] [address] Surgeon Orthopedic Surgery 03/27/17 Jacky Murry MD [address] [place] [address] [address] [place] [address] Ophthalmology 03/27/17 documented as of this encounter
--- OUTSIDE RECORDS SUMMARY | 2024-06-18 19:02 | XMS_ITS | Encounter Summary ---
Author Organization [facility] Address [address] [place] [address] Care Team Providers Care Parts Sales Manager Name Role Phone Pepper Morgan MD Primary Care Provider + [phone] Hank Garibay MD Unavailable [phone] Jacky Murry MD Unavailable [phone] Encounter Details Date Type Department Care Team (Late st Contact Info) Description 07/01/2019 10:15 AM PRESCHOOL HEAD TEACHER [address] [id number] Pre-op testing; Primary osteoarthritis of right hip [...] file Legal Sex Female 4:33 AM PRESCHOOL HEAD TEACHER Gender Identity Not on file Sexual Orientation Not on file Occupation Industry Job Start Date Job End Date retired Not on file Not on file Not on file documented as of this encounter Plan of Treatment Not on file documented as of this encounter Procedures Procedure Name Priority Date/Time Associated Diagnosis Comments EGFR Routine 07/01/2019 9:50 AM PRESCHOOL HEAD TEACHER Pre-op testing DIFFERENTIAL AUTO Routine 07/01/2019 9:5 0 AM PRESCHOOL HEAD TEACHER Pre-op testing URINALYSIS AND REFLEX TO MICROSCOPIC AND CULTURE Routine 07/01/2019 9:50 AM PRESCHOOL HEAD TEACHER Pre-op testing CBC WITH AUTO DIFFERENTIAL Routine 07/01/2019 9:50 AM PRESCHOOL HEAD TEACHER Pre-op testing APTT Routine 07/01/2019 9:50 AM PRESCHOOL HEAD TEACHER Primary osteoarthritis of right hip PROTIME-INR Routine 07/01/2019 9:50 AM PRESCHOOL HEAD TEACHER Primary osteoarthritis of right hip HEMOGLOBIN A1C Routine 07/01/2019 9:50 AM PRESCHOOL HEAD TEACHER Pre-op testing COMPREHENSIVE METABOLIC PANEL Routine 07/01/2019 9:50 AM PRESCHOOL HEAD TEACHER Pre-op testing documented in this encounter Results * eGFR (07/01/2019 9:50 AM PRESCHOOL HEAD TEACHER) eGFR 85 mL/min/1.7 3 m2 [facility] ([place]) Comment: Interpretive Data Reference Interval Normal ?>/= 90 mL/min/1.73m2 Mildly decreased* ? 60 - 89 mL/min/1.73m2 Mildly to moderately decreased ?45 - 59 mL/min/1.73m2 Moderately to severely decreased ??30 - 44 mL/min/1.73m2 Severely decreased ?15 - 29 mL/min/1.73m2 Kidney Failure ?< 15 ??mL/min/1.73m2 *Relative to young adult level If -Congolese multiply value by 1.16. Estimated glomerular filtration [...] was last reviewed 2016. Blood specimen (specimen) 07/01/2019 9:50 AM PRESCHOOL HEAD TEACHER 07/01/2019 10:13 AM PRESCHOOL HEAD TEACHER us Puma Mckenzie MD LAB BLOOD ORDERABLES Fin al Result [facility] ([place]) 1 [facility] Department [place] [address] * Differential, auto (07/01/2019 9:50 AM PRESCHOOL HEAD TEACHER) Neutrophil abs 4.5 1.7 - 6.5 K/cumm [facility] ([place]) Imm gran abs 0.0 0.0 - 0.1 K/cumm [facility] ([place]) Lymphocyte abs 1.1 0.8 - 3.3 K/cumm [facility] ([place]) Monocyte abs 0.5 0.2 - 0.8 K/cumm [facility] ([place]) Eosinophil abs 0.4 0.0 - 0.5 K/cumm [facility] ([place]) Basophil abs 0.1 0.0 - 0.1 K/cumm [facility] ([place]) Neutrophil pct 67.3 % [facility] ([place]) Comment: Interpretive Data Percent cell count reference ranges are not reported, since discordance with absolute values may lead to misinterpretation of CBC data. Current Interpretive Data was last revised on 2017. Imm gran pct 0.6 % [facility] ([place]) Comment: Interpretive Data Percent cell count reference ranges are not reported, since discordance with absolute values may lead to misinterpretation of CBC data. Current Interpretive Data was last revised on 2017. Lymphocyte pct 17.1 % [facility] ([place]) Comment: Interpretive [...] was last revised on 2017. Eosinophil pct 6.5 % [facility] ([place]) Comment: Interpretive Data Percent cell count reference ranges are not reported, since discordance with absolute values may lead to misinterpretation of CBC data. Current Interpretive Data was last revised on 2017. Basophil pct 0.9 % [facility] ([place]) Comment: Interpretive Data Percent cell count reference ranges are not reported, since discordance with absolute values may lead to misinterpretation of CBC data. Current Interpretive Data was last revised on 2017. Blood specimen (specimen) 07/01/2019 9:50 AM PRESCHOOL HEAD TEACHER 07/01/2019 10:13 AM PRESCHOOL HEAD TEACHER Puma Mckenzie MD LAB BLOOD ORDERABLES Fin al Result Performing Organization Address [facility] Co de Phone Number [facility] 1 [facility] [place] [address] * aPTT (07/01/2019 9:50 AM PRESCHOOL HEAD TEACHER) aPTT 31 25 - 37 sec [facility] ([place]) Comment: Interpretive data Heparin therapeutic range: 60-94 seconds Range based on correlation with therapeutic heparin activity range of 0.3-0.7 units/ml. Current interpretive data was last revised on 2019. Blood specimen (specimen) 07/01/2019 9:50 AM PRESCHOOL HEAD TEACHER 07/01/2019 10:13 AM PRESCHOOL HEAD TEACHER Puma Mckenzie MD LAB BLOOD ORDERABLES Fin al Result Performing Organization Address City/[facility] Co de Phone Number [facility] 1 [facility] [place] [address] * Protime-INR (07/01/2019 9:50 AM PRESCHOOL HEAD TEACHER) PT 12.1 9.5 - 13.0 sec [facility] ([place]) INR 1.1 0.9 - 1.2 [facility] ([place]) Comment: Interpretive data Oral anticoagulant therapeutic ranges: Venous thromboembolism prophylaxis or treatment: 2.0-3.0 CARDIOLOGY Standard range: 2.0-3.0 High-intensity range: 2.5-3.5 Refer to indication-specific guidelines for appropriate target ranges for prosthetic heart valve replacement. Current interpretive data was last revised on 2019. Blood specimen (specimen) 07/01/2019 9:50 AM PRESCHOOL HEAD TEACHER 07/01/2019 10:13 AM PRESCHOOL HEAD TEACHER us Puma Mckenzie MD LAB BLOOD ORDERABLES Fin al Result [facility] ([place]) 1 [facility] Department [place] [address] * Urinalysis reflex to microscopic and culture Urine (07/01/2019 9:50 AM PRESCHOOL HEAD TEACHER) Color, ur Yellow Yellow [facility] ([place]) [...] for microscopic UA and culture not met. [facility] ([place]) Urine 07/01/2019 9:50 AM PRESCHOOL HEAD TEACHER 07/01/2019 10:11 AM PRESCHOOL HEAD TEACHER Narrative [facility] ([place]) - 07/01/2019 10:31 AM PRESCHOOL HEAD TEACHER ?? Urine pH is affected by diet, medications, systemic acid-base disturbances, and renal tubular function. ??pH may affect urinary stone formation. ??For example, urine pH below 6.0 may help reduce the tendency for calcium phosphate stones and pH greater than 6.0 may reduce the tendency for uric acid stone formation. Source: [facility] [employer]. Last revised 06-29-2017 Puma Mckenzie MD LAB MICROBIOLOGY - GENER AL ORDERABLES Final Result Performing Organization Address [facility] de Phone Number [facility] ([place]) [address] [place] [address] * Hemoglobin A1c (07/01/2019 9:50 AM PRESCHOOL HEAD TEACHER) Hgb A1C 5.1 4.0 - 5.6 % [facility] ([place]) Estimated Average Glucose 100 mg/dL [facility] ([place]) Comment: The ADA recommends reporting an estimated Average Glucose (eAG) with all Hemoglobin A1c results using the equation derived from a study of 507 normal and diabetic adults. ??Minority populations were underrepresented and children were not included. ?? (Diabetes Care 31:2663-5522, 2008). ??The eAG is not equivalent to a fasting glucose. Blood specimen (specimen) 07/01/2019 9:50 AM PRESCHOOL HEAD TEACHER 07/01/2019 10:13 AM PRESCHOOL HEAD TEACHER Puma Mckenzie MD LAB BLOOD ORDERABLES Fin al Result Performing Organization Address [facility] de Phone Number [facility] ([place]) [address] [facility] [place] [address] * Comprehensive metabolic panel (07/01/2019 9:50 AM PRESCHOOL HEAD TEACHER) Sodium 136 135 - 145 mmol/L [facility] [...] ([place]) Blood specimen (specimen) 07/01/2019 9:50 AM PRESCHOOL HEAD TEACHER 07/01/2019 10:13 AM PRESCHOOL HEAD TEACHER us Puma Mckenzie MD LAB BLOOD ORDERABLES Fin al Result [facility] ([place]) 1 [facility] Department [place] [address] * (ABNORMAL) CBC with auto differential (07/01/2019 9:50 AM PRESCHOOL HEAD TEACHER) WBC 6.6 3.8 - 9.9 K/cumm [facility] [...] ([place]) Blood specimen (specimen) 07/01/2019 9:50 AM PRESCHOOL HEAD TEACHER 07/01/2019 10:13 AM PRESCHOOL HEAD TEACHER us Puma Mckenzie MD LAB BLOOD ORDERABLES Fin al Result [facility] ([place]) 1 [facility] Department [place] [address] documented in this encounter Visit Diagnoses Diagnosis Pre-op testing Unspecified pre-operative examination Primary osteoarthritis of right hip documented in this encounter Care Teams Parts Sales Manager Relationship Specialty Start Date End Date Pepper Morgan MD PCP - General 09/16/16 Hank Garibay MD [address] [place] [address] DR WARNER [place] [address] [address] Surgeon Orthopedic Surgery 03/27/17 Jacky Murry MD [address] [place] [address] DR WARNER Sheridan [address] [place] [address] Ophthalmology 03/27/17 documented as of this encounter
--- OUTSIDE RECORDS SUMMARY | 2024-06-18 19:02 | XMS_ITS | Encounter Summary ---
Author Organization [facility] Healthcare Address [address] [place] [address] Care Team Providers Care Senior Sas Programmer Name Role Phone Pepper Morgan MD Primary Care Provider + [phone] Hank Garibay MD Unavailable [phone] Jacky Murry MD Unavailable [phone] Mary Mckenzie MD Unavailable [phone] Encounter Details Date Type Department Care Team (Latest Contact Info) Description 07/10/2019 7:57 AM BUTTER PRINTER - 07/12/2019 4:40 PM BUTTER PRINTER Hospital Encounter [facility] Surgery Care [address] [place] [address] Mary Mckenzie MD [address] [place] [phone] Primary osteoarthritis of right hip (Primary Dx) Discharge Disposition: Discharge to home [...] on file Legal Sex Female 4:33 AM BUTTER PRINTER Gender Identity Not on file Sexual Orientation Not on file Occupation Industry Job Start Date Job End Date retired Not on file Not on file Not on file documented as of this encounter Last Filed Vital Signs Vital Sign Reading Time Taken Comments Blood Pressure 129/59 07/12/2019 11:00 AM BUTTER PRINTER Pulse 72 07/12/2019 11:00 AM BUTTER PRINTER Temperature 36.9 ??C (98.4 ??F) 07/12/2019 11:[address] Respiratory Rate 18 07/12/2019 11:00 AM BUTTER PRINTER Oxygen Saturation 100% 07/12/2019 11:00 AM BUTTER PRINTER Inhaled Oxygen Concentration - - Weight 97.8 kg (215 lb 9.8 oz) 07/10/2019 8:30 A M BUTTER PRINTER Height 152.4 cm (5') 07/11/2019 4:39 PM BUTTER PRINTER Body Mass Index 42.11 07/10/2019 8:30 AM BUTTER PRINTER documented in this encounter Discharge Diagnoses Diagnosis Unilateral primary osteoarthritis, right hip - UNILATERAL PRIMARY OSTEOARTHRITIS, RIGHT HIP Presence of artificial knee joint, bilateral - PRESENCE OF ARTIFICIAL KNEE JOINT, BILATERAL Other senior care (current) drug therapy - OTHER PUBLIC ADDRESS SYSTEM OPERATOR (CURRENT) DRUG THERAPY Essential (primary) hypertension - ESSENTIAL (PRIMARY) HYPERTENSION Unspecified essential hypertension Gastro-esophageal reflux disease without esophagitis - GASTRO-ESOPHAGEAL REFLUX DISEASE WITHOUT ESOPHAGITIS Personal history of other malignant neoplasm of skin - PERSONAL HISTORY OF OTHER MALIGNANT NEOPLASM OF SKIN Obesity, unspecified - OBESITY, UNSPECIFIED Body mass index (BMI) 40.0-44.9, adult - BODY MASS INDEX (BMI) 40.0-44.9, ADULT Personal history of nicotine dependence - PERSONAL HISTORY OF NICOTINE DEPENDENCE documented in this encounter Discharge Summaries * Hannah Emmanuel PA - 07/12/2019 8:11 AM CST Inpatient Discharge Summary BRIEF OVERVIEW Admitting Provider: Mary Mckenzie MD Discharge Provider: Mary Mckenzie MD Primary Care Physician at Discharge: Pepper Morgan MD [phone] Admission Date: 07/10/2019 Discharge Date: 07/12/2019 Primary [...] Decent 08/26/2019 9:00 AM Jacqueline Fuller NP [facility] IM PSA Decent 11/18/2019 9:00 AM Pepper Morgan [address] [facility] IM PSA Decent Cosigned by Mary Mckenzie MD at 07/12/2019 2:25 PM BUTTER PRINTER ER PRINTER ER PRINTER * Kathie Cox PA - 07/11/2019 8:03 AM CST Inpatient Discharge Summary BRIEF OVERVIEW Admitting Provider: Mary Mckenzie MD Discharge Provider: Mary Mckenzie MD Primary Care Physician at Discharge: Pepper Morgan MD [phone] Admission Date: 07/10/2019 Discharge Date: 07/11/2019 Primary [...] Decent 11/18/2019 9:[address] [facility] IM PSA Decent @[email or web address]@ Cosigned by Mary Mckenzie MD at 07/11/2019 11:14 AM BUTTER PRINTER ER PRINTER ER PRINTER documented in this encounter Discharge Instructions * Discharge Instr - Other Orders* Estephanie Juan RN - 07/12/2019 4:09 PM BUTTER PRINTER The following Home Health agencies has been contacted regarding this referral: [facility]. Referral was accepted by [facility]. Patient was instructed to call [facility] at if she has not been contacted within 24-48 hours of discharge from the hospital ER PRINTER * Attachments The following attachments cannot be sent through Care Everywhere. * Ascorbic Acid (Vitamin C) (By mouth) (Syrian) * Aspirin (By mouth) (Syrian) * Iron Supplements (By mouth) (Syrian) * Senna (By mouth) (Syrian) * Ondansetron (By mouth, Into the mouth) (Syrian) * Hydrocodone/Acetaminophen (By mouth) (Syrian) documented in this encounter Medications at Time [...] tablet 07/12/2019 0 senna-docusate (PERICOLACE) 8.6-50 mgIndications:edmund pation Take 2 tablets by mouth 2 [...] this encounter Progress Notes * Greg Mims, LATHER APPRENTICE - 07/12/2019 1:44 PM CST Physical Therapy [...] summary Recommendation/Plan PT Recommendation/Plan Home with family ER PRINTER Kasia Carpio MSW - 07/12/2019 10:44 AM [...] railing? 3 Total Score (range 6-24) 20 Kasia Lopez MSW - 07/12/2019 10:29 AM CST Sw met with pt and daughter Florinda for dc plans. Pt lives alone and daughter/son are supportive. LATHER APPRENTICE evaluated and recommended return home with [facility] PT. Pt's preference is [facility]. Pt denied the needfor information on community [...] Arrangements Alone Type of Residence Private residence ([facility]) Steps in home? Yes, Outside of home Number of steps outside: 3 steps Financial Resource Income Skilled Nursing/Pension Potential Discharge Needs Home Health Physical therapy Patient expects to be discharged to: Private residence Dialysis No Behavioral Health Services No ER PRINTER * Kasia Perez MSW - 07/12/2019 10:25 AM CST 07/12/19 1021 Communications Patient choice (Home Health/Hospice) list given to patient/human resources hr representative? Yes ([facility] is pt's choice.) Fiduciary Responsibility Patient/Designated decision maker was informed of [facility] fiduciary relationship as necessary ER PRINTER * Greg Mims PTA - 07/12/2019 9:39 AM CST Physical Therapy [...] PT Recommendation/Plan Home with family;Home Health PT ER PRINTER * Evelyn Liang, OT - 07/12/2019 8:19 AM CST Occupational Therapy 07/12/19 1248 General Session Type Treatment OT Received On [...] Utilized (pt. educated on how to use doorkeeper and sock aid for LE dress) Toileting [...] and gave demonstration of how to use doorkeeper and sock aid for LE dressing. Patient reports understanding. Issued doorkeeper and sock aid for independence/safety athome Plan Plan Continue with current plan;If this is the last note, consider this the discharge summary Recommendation/Plan OT Recommendation Home with family (pt. will have daughter and son staying with her ) OT Recommendation/Plan Comments family will be staying with patient ER PRINTER * Hannah Emmanuel PA - 07/12/2019 8:10 AM CST Orthopedic Total Hip Progress Note Assessment/Plan Status post-right total hip arthroplasty: Doing well postoperatively. Nausea resolved from yesterday. Pain well controlled on [place]. Continues current post-op course. Home on discharge today with family. Pt is to continue on [id number] daily for DVT prophylaxis and is to [...] Mary Mckenzie MD at 07/12/2019 2:26 PM BUTTER PRINTER ER PRINTER ER PRINTER * Milly Mcgarry RD - 07/11/2019 4:40 PM CST Nutrition Assessment Reason for Assessment: Initial Nutrition Assessment Encounter Date: 07/11/19 4:44 PM Nutrition Assessment and Plan: Patient is a 83 y.o. female. Admit Dx: UNILATERAL PRIMARY OSTEOARTHRITIS, RIGHT HIP/KS TOTAL HIP ARTHROPLASTY. Admitted on 07/10/2019, current [...] to: Wounds Evidenced by: Physical finding Interventions: Wittmann diet preferences within the limits of nutrition [...] Weight Used for Estimated Kcals: Current ?? [facility] Total Energy Needs: 1773.2 kcal using Activity Factor: 1.3 ?? [place] Total Energy Needs + Fever Factor: 1773.2 [...] Nutrition Follow-Up : 07/15/[address],LDN ER PRINTER * Greg Mims, LATHER APPRENTICE - 07/11/2019 2:52 PM CST Physical Therapy [...] this the discharge summary Recommendation/Plan PT Recommendation/Plan Long-Term Facility ER PRINTER * Evelyn Liang, OT - 07/11/2019 11:16 AM CST Occupational Therapy 07/11/19 1021 General Chart Reviewed Yes Session Type Evaluation OT Received On 07/11/19 Subjective Agreeable to Therapy Family/Caregiver Present No Occupational Therapy-Patient Goal return home Precautions Precautions Hip: Anterior RLE Weight Bearing WBAT Home Living Type of Home [facility] Bathroom Shower/Tub Walk-in shower with threshold Bathroom Toilet Raised Bathroom Equipment Built-in shower seat Home Mobility Equipment Wheeled walker Additional Comments uses w/w recently Prior Function Level of Stevens Independent with ADLs;Independent functional transfers;Independent with ambulation;Independent [...] for increased INDEP and safety at home. ER PRINTER * Mary Alatorre, PT - 07/11/2019 9:22 [...] Bearing WBAT Home Living Type of Home Condo[facility] Home Layout One level Home Access Stairs to enter with rails Entrance Stairs-Rails Both Entrance Stairs-Number of Steps 3 Home Mobility Equipment Wheeled walker;Single point cane Prior Function Level of Stevens Independent with ADLs;Independent functional transfers;Independent with ambulation [...] this the discharge summary Recommendation/Plan PT Recommendation/Plan Long-Term Facility PT Frequency Daily;Twice a day Treatment/Interventions Bed mobility;Functional transfer training;Gait training;Stair training;Therapeutic exercise PT Equipment Recommended None (owns a cane and a fww) PT Evaluation Complete Yes Multi-Disciplinary Problems (from Physical Therapy) Active Problems Problem: PT [facility] Start Date: 07/11/19 Goal Start Date End Date PT [facility] 1 07/11/19 -- Goal Details: Pt to be indep>cga with bed mobility consistently to increase functional mobility. Goal Start Date End Date PT [facility] 2 07/11/19 -- Goal Details: Pt to be cga>sba with all transfers consistently to increase functional mobility. Goal Start Date End Date PT [facility] 3 07/11/19 -- Goal Details: Pt to ambulate 75-100' cga with fww consistently, to increase functional mobility. Goal Start Date End Date PT [facility] 4 07/11/19 -- Goal Details: Pt to ascend/descend 4 steps min assist consistently to increase functional independence. ER PRINTER * Kathie Cox PA - 07/11/2019 7:58 [...] Mary Mckenzie MD at 07/11/2019 11:14 AM BUTTER PRINTER ER PRINTER ER PRINTER * Mary Alatorre, PT - 07/10/2019 5:03 PM CST Physical Therapy- missed treatment 07/10/19 1630 General PT Missed Visit Reason Patient declined;Family declined (pt nauseated, unable to keep any food down) ER PRINTER documented in this encounter H&P Notes * [...] joe, aquamantys and 1 liter beta rinse ER PRINTER Source Note - Mary Mckenzie MD - 06/27/2019 9:30 AM BUTTER PRINTER Images from the original note were not [...] Views Severe advanced right hip osteoarthritis with tcbo-un-bolg contact, osteophyte formation, subluxation. Assessment/Plan Tess was [...] inpatient rehab following surgery. Mary Mckenzie MD ER PRINTER documented in this encounter Nursing Notes * Cora Maguire, RN - 07/12/2019 4:42 PM CST Pt and daughter received discharge instructions and all questions were answered. Pt was given paperprescriptions to bring to local pharmacy. Pt was assisted to personal vehicle by wheelchair with all belongings in hand. ER PRINTER documented in this encounter Miscellaneous Notes * Plan of Care - Cora Maguire RN - 07/12/2019 4:41 PM BUTTER PRINTER Problem: Health Behavior: Goal: Understanding of discharge [...] and intact, and has no other complaints ER PRINTER * Plan of Care - Jake Gomes RN - 07/12/2019 4:02 PM CST [facility] Home Care is unable to accept this patient at this time due to time availability & pt safety. Patient and Heat Treater made aware. The following Home Health agencies has been contacted regarding this referral: [facility]. Referral was accepted by [facility]. Patient was instructed to call [facility] at if she has not been contacted within 24-48 hours of discharge from the hospital. ER PRINTER * Plan of Care - Sadia Rocha RN - 07/12/2019 3:24 PM CST Referral sent to [facility] for RN/PT/Lopez and Jake, with [facility], has been notified. ER PRINTER * Plan of Care - Greg Mims [...] consistently, to increase functional mobility. Outcome: Completed ER PRINTER * Plan of Care - Greg Mims [...] coming to stay with patient for awhile ER PRINTER * Plan of Care - Evelyn Liang [...] Outcome: Progressing Problem: OT Misc Goal: OT [facility] - Mis 1 Description Pt. to perform functional room mobility/object retrieval MOD I for increased INDEP and safety at home. Outcome: Progressing ER PRINTER * Plan of Care - Benita Tuttle [...] impaired skin integrity will decrease Outcome: Progressing ER PRINTER * Plan of Care - Cora Maguire RN - 07/11/2019 5:24 PM BUTTER PRINTER Problem: Health Behavior: Goal: Understanding of discharge [...] her feet, and will continue to monitor ER PRINTER * Plan of Care - Greg Mims [...] SNF vs Home with 24 hr. care ER PRINTER * Plan of Care - Benita Tuttle [...] impaired skin integrity will decrease Outcome: Progressing ER PRINTER * Plan of Care - Cora Maguire RN - 07/10/2019 5:41 PM BUTTER PRINTER Problem: Health Behavior: Goal: Understanding of discharge [...] and intact, and will continue to monitor ER PRINTER * Op Note - Mary Mckenzie MD - 07/10/2019 11:54 AM CST Preoperative diagnosis: right Hip osteoarthritis Postoperative diagnosis: Same as preoperative diagnosis Procedure: right total hip arthroplasty Surgeon: Mary Mckenzie MD Shipper/Receiver: Lien Garcia Anesthesia: Spinal Estimated blood loss: 250cc Complications: None Condition: Stable to PACU Implanted component: Implant Name Type Inv. Item Serial No. Gas Appliance Repairer Lot No. [id number] No. Used [employer] [id number] PINNACLE 52MM SECTOR HIP SHELL ACETABULAR GRIPTION STERILE LATEX FREE - [id number] [employer] [id number] [place] 52mm Sector Hip Shell Acetabular GriptionSterile Latex Free [employer] [id number] Right 1 [employer] [id number] PINNACLE 52MM 36MM HIP NEUTRAL LINER ACETABULAR ALTRX STERILE LATEX FREE - [id number] [employer] [id number] [place] 52mm 36mm Hip Neutral Liner AcetabularAltrx Sterile Latex Free Depuy [employer] [id number] Right 1 [employer] [id number] PINNACLE 6.5MM 25MM ACETABULAR CANCELLOUS SCREW BONE STERILE - [id number] [employer] [id number] [place] 6.5mm 25mm Acetabular Cancellous Screw Bone Sterile [employer] [id number] Right 1 [employer] [id number] ARTICUL/SASCHA 36MM CEMENTLESS HIP +1.5MM 12/14 TAPER HEAD FEMORAL LATEX FREE - [id number] [employer] [id number] Articul/sascha 36mm Cementless Hip +1.5mm 12/14 [place] Head Femoral Latex Free [facility] [employer] Inc [id number] Right 1 [facility] [id number] ACTIS COLLARED HIP 12/14 6 STANDARD OFFSET STEM FEMORAL - [id number] [facility] [id number] Actis Collared Hip 12/14 6 Standard Offset Stem Femoral [facility] Concurrent Incs [facility] [id number] Right 1 Technique: I met the patient [...] correct at the end of the case. ER PRINTER * Pre-Procedure Instructions - Sari Dougherty RN - 07/01/2019 9:10 AM BUTTER PRINTER We are pleased that you and your doctor have chosen [facility] for your surgery. We hope [...] mg tablet ?? Use no make-up, nail mongolian, lotions, oils or powders on your skin. [...] posted at the top of the page. ER PRINTER documented in this encounter Plan of Treatment Not on file documented as of this encounter Procedures Procedure Name Priority Date/Time Associated Diagnosis Comments EGFR Routine 07/12/2019 3:06 AM BUTTER PRINTER CBC WITHOUT DIFFERENTIAL Routine 07/12/2019 3:06 AM BUTTER PRINTER BASIC METABOLIC PANEL Routine 07/12/2019 3:06 AM BUTTER PRINTER EGFR Routine 07/11/2019 3:18 AM BUTTER PRINTER CBC WITHOUT DIFFERENTIAL Routine 07/11/2019 3:18 AM BUTTER PRINTER BASIC METABOLIC PANEL Routine 07/11/2019 3:18 AM BUTTER PRINTER SURGICAL PATHOLOGY Routine 07/10/2019 1: 57 PM BUTTER PRINTER Primary osteoarthritis of right hip XR PELVIS ORTHO VIEW STAT 07/10/2019 1:17 PM BUTTER PRINTER FL FLUOROSCOPY < 1 HOUR (STATISTICAL ONLY) IP Routine 07/10/2019 12:42 PM BUTTER PRINTER XR HIP RIGHT 1 VIEW IP Routine 07/10/2019 12:42 PM BUTTER PRINTER ARTHROPLASTY TOTAL HIP 07/10/2019 10:16 AM BUTTER PRINTER Primary osteoarthritis of right hip Special Needs Depuy Actis, omnitrac, midas joe, aquamantys and 1 liter beta rinse07/01/19 Reviewed kkm POTASSIUM, WHOLE BLOOD STAT 07/10/2019 8:41 AM BUTTER PRINTER APTT STAT 07/10/2019 8:41 AM BUTTER PRINTER PROTIME-INR STAT 07/10/2019 8:41 AM BUTTER PRINTER documented in this encounter Results * eGFR (07/12/2019 3:06 AM BUTTER PRINTER) eGFR 82 mL/min/1.7 3 m2 [facility] ([place]) Comment: Interpretive Data Reference Interval Normal ?>/= 90 mL/min/1.73m2 Mildly decreased* ? 60 - 89 mL/min/1.73m2 Mildly to moderately decreased ?45 - 59 mL/min/1.73m2 Moderately to severely decreased ??30 - 44 mL/min/1.73m2 Severely decreased ?15 - 29 mL/min/1.73m2 Kidney Failure ?< 15 ??mL/min/1.73m2 *Relative to young adult level If -Tunisian multiply value by 1.16. Estimated glomerular filtration [...] 2016. Blood specimen (specimen) 07/12/2019 3:06 AM BUTTER PRINTER 07/12/2019 3:23 AM BUTTER PRINTER Hannah BRUCE LAB BLOOD ORDERABLES Farzana hernandez Result [facility] ([place]) 1 [facility] [employer] [place] [address] * (ABNORMAL) CBC without differential (07/12/2019 3:06 AM BUTTER PRINTER) WBC 9.8 3.8 - 9.9 K/cumm [facility] [...] ([place]) Blood specimen (specimen) 07/12/2019 3:06 AM BUTTER PRINTER 07/12/2019 3:23 AM BUTTER PRINTER Hannah BRUCE LAB BLOOD ORDERABLES Farzana hernandez Result [facility] ([place]) 1 [facility] Department of [employer] [place] [address] * (ABNORMAL) Basic metabolic panel (07/12/2019 3:06 AM BUTTER PRINTER) Sodium 134(L) 135 - 145 mmol/L [facility] ([place]) Potassium, pl 4.3 3.3 - 4.9 mmol/L [facility] ([place]) Chloride 100 97 - 110 mmol/L [facility] ([place]) CO2 27 22 - 32 mmol/L [facility] ([place]) Anion gap 8 2 - 15 mmol/L [facility] ([place]) BUN 15 8 - 25 mg/dL [facility] ([place]) Creatinine 0.68 0.60 - 1.10 mg/dL [facility] ([place]) Glucose 120 70 - 199 mg/dL [facility] ([place]) Comment: Interpretive Data Fasting glucose >/= [...] 2017. Calcium 8.7 8.5 - 10.3 mg/dL [facility] ([place]) Blood specimen (specimen) 07/12/2019 3:06 AM BUTTER PRINTER 07/12/2019 3:23 AM BUTTER PRINTER us Hannah BRUCE LAB BLOOD ORDERABLES Farzana hernandez Result [facility] ([place]) 1 [facility] Department [place] [address] * eGFR (07/11/2019 3:18 AM BUTTER PRINTER) Pathologist [facility] eGFR 38 mL/min/1.7 3 m2 [facility] ([place]) Comment: Interpretive Data Reference Interval Normal ?>/= 90 mL/min/1.73m2 Mildly decreased* ? 60 - 89 mL/min/1.73m2 Mildly to moderately decreased ?45 - 59 mL/min/1.73m2 Moderately to severely decreased ??30 - 44 mL/min/1.73m2 Severely decreased ?15 - 29 mL/min/1.73m2 Kidney Failure ?< 15 ??mL/min/1.73m2 *Relative to young adult level If -Tunisian multiply value by 1.16. Estimated glomerular filtration [...] 2016. Blood specimen (specimen) 07/11/2019 3:18 AM BUTTER PRINTER 07/11/2019 3:25 AM BUTTER PRINTER us Hannah BRUCE LAB BLOOD ORDERABLES Farzana hernandez Result [facility] ([place]) 1 [facility] Department [place] [address] * (ABNORMAL) CBC without differential (07/11/2019 3:18 AM BUTTER PRINTER) WBC 11.3(H) 3.8 - 9.9 K/cumm [facility] ([place]) Hgb 12.3 11.9 - 15.5 g/dL [facility] ([place]) Hct 39.1 35.6 - 45.5 % [facility] ([place]) Plt 235 150 - 400 K/cumm [facility] ([place]) MPV 8.9(L) 9.1 - 12.3 fL [facility] ([place]) RBC 4.46 3.90 - 5.20 M/cumm [facility] ([place]) MCV 87.7 81.3 - 96.4 fL [facility] ([place]) MCH 27.6 27.1 - 33.3 pg [facility] MCHC 31.5(L) 32.3 - 35.7 g/dL [facility] ([place]) RDW CV 13.5 11.1 - 14.9 % [facility] ([place]) RDW SD 43.8 35.7 - 48.1 fL [facility] ([place]) NRBC abs 0.00 0.00 - 0.01 K/cumm [facility] ([place]) Blood specimen (specimen) 07/11/2019 3:18 AM BUTTER PRINTER 07/11/2019 3:25 AM BUTTER PRINTER Hannah BRUCE LAB BLOOD ORDERABLES Farzana l Result [facility] ([place]) 1 [facility] Department [place] [address] * (ABNORMAL) Basic metabolic panel (07/11/2019 3:18 AM BUTTER PRINTER) Sodium 130(L) 135 - 145 mmol/L [facility] Potassium, pl 4.2 3.3 - 4.9 mmol/L [facility] Chloride 93(L) 97 - 110 mmol/L [facility] ([place]) CO2 24 22 - 32 mmol/L [facility] Anion gap 13 2 - 15 mmol/L [facility] ([place]) BUN 16 8 - 25 mg/dL [facility] ([place]) Creatinine 1.32(H) 0.60 - 1.10 mg/dL [facility] Glucose 279(H) 70 - 199 mg/dL [facility] Comment: Interpretive Data [...] 2017. Calcium 8.3(L) 8.5 - 10.3 mg/dL [facility] ([place]) Blood specimen (specimen) 07/11/2019 3:18 AM BUTTER PRINTER 07/11/2019 3:25 AM BUTTER PRINTER Hannah BRUCE LAB BLOOD ORDERABLES Farzana hernandez Result [facility] ([place]) 1 [facility] Department [place] [address] * Surgical pathology (07/10/2019 1:57 PM BUTTER PRINTER) Tissue (Bone Fragment(s),) 07/10/2019 10:42 AM BUTTER PRINTER Narrative PATHOLOGY [facility] - 07/15/2019 12:08 PM BUTTER PRINTER EPIC results best viewed via link to PDF [facility] Department of Pathology [address] [place] [id number] Final Report Patient Name: ??TESS BENEDICT William Address: ??[address] [place] [address], ??[place], [place] ??[address] Gender: ??F : ??1935 (Age: 83) Service: ??Surgery Location: ??[facility] Hospital #: ??[id number] Patient Type: ??[facility] EP OP in bed Accession # ?[id number] Taken: ??07/10/2019 Received: ??07/10/2019 Accessioned: ??07/10/2019 Reported: [...] is bisected revealing no subchondral gross lesions. Spool Hauler sections are submitted in one cassette after decalcification. ??Kasia Diallo M.D./Josef Vinson REPORT IMAGES AND SCANNED DOCUMENTS, IF INCLUDED, ONLY VIEWABLE IN PDF VERSION OF REPORT The performance characteristics of some immunohistochemical stains, fluorescence in-situ hybridization tests and immunophenotyping by flow cytometry cited in this report (if any) were determined by the Surgical Pathology Department at [facility] as part of an ongoing quality cloth tester program and in compliance with federally mandated [...] characteristics determined by the Surgical Pathology Department [facility]. ??It has not been cleared or approved by the U. S. Food and Drug Administration. Mary Mckenzie MD LAB PATHOLOGY ORDERABLES Final Result [facility]OLOGY [facility] ([place]) [address] [place] [address] * XR Pelvis Ortho View (07/10/2019 1:17 PM BUTTER PRINTER) Anatomical Region Laterality Modality Body, Pelvis N/A Computed Radiogr aphy 07/10/2019 1:55 PM BUTTER PRINTER Impressions 07/10/2019 1:59 PM BUTTER PRINTER Expected post-operative appearance of the right hip status post recent prior total hip arthroplasty. ??No evidence of complication. Electronically signed by: Je Stoll M.D. Narrative 07/10/2019 1:59 PM BUTTER PRINTER EXAMINATION: XR PELVIS ORTHO VIEW ORDERING HEALTHCARE [...] XR PELVIS ORTHO VIEW ORDERING HEALTHCARE PROVIDER: AHNNAH EMMANUEL HISTORY: Post-operative evaluation status post right [...] complication. Electronically signed by: Je Stoll M.D. Hannah BRUCE IMG XR PROCEDURES Final R esult * FL Fluoroscopy < 1 Hour (Statistical Only) (07/10/2019 12:42 PM BUTTER PRINTER) Anatomical Region Laterality Modality Body N/A Radio Fluoroscop y 07/10/2019 12:4 9 PM BUTTER PRINTER Impressions 07/16/2019 9:53 AM BUTTER PRINTER Fluoroscopic image(s) for intraoperative control purposes. Electronically signed by: Flash Aquino M.D. Narrative 07/16/2019 9:53 AM BUTTER PRINTER EXAMINATION: XR HIP RIGHT 1 VIEW ORDERING [...] RIGHT 1 VIEW ORDERING HEALTHCARE PROVIDER: MARY MCKENZEI HISTORY: OTHER. Per chart review 07/10/2019: Right [...] Hip Right 1 View (07/10/2019 12:42 PM BUTTER PRINTER) Anatomical Region Laterality Modality Lower Extremities, Hip, Pelvis Right R adio Fluoroscopy 07/10/2019 12:4 8 PM BUTTER PRINTER Impressions 07/10/2019 12:49 PM BUTTER PRINTER Fluoroscopic image(s) for intraoperative control purposes. Electronically signed by: Flash Aquino M.D. Narrative 07/10/2019 12:49 PM BUTTER PRINTER EXAMINATION: XR HIP RIGHT 1 VIEW ORDERING [...] Final Result * aPTT (07/10/2019 8:41 AM BUTTER PRINTER) aPTT 33 25 - 37 sec [facility] ([facility]) Comment: Interpretive data Heparin therapeutic range: 60-94 seconds Range based on correlation with therapeutic heparin activity range of 0.3-0.7 units/ml. Current interpretive data was last revised on 2019. Blood specimen (specimen) 07/10/2019 8:41 AM BUTTER PRINTER 07/10/2019 8:49 AM BUTTER PRINTER Mary Mckenzie MD LAB BLOOD ORDERABLES Fin al Result [facility]) 1 [facility] [employer] [place] [address] * Protime-INR (07/10/2019 8:41 AM BUTTER PRINTER) PT 12.0 9.5 - 13.0 sec [facility] INR 1.1 0.9 - 1.2 [facility] Comment: Interpretive data Oral anticoagulant therapeutic ranges: Venous thromboembolism prophylaxis or treatment: 2.0-3.0 CARDIOLOGY Standard range: 2.0-3.0 High-intensity range: 2.5-3.5 Refer to indication-specific guidelines for appropriate target ranges for prosthetic heart valve replacement. Current interpretive data was last revised on 2019. Blood specimen (specimen) 07/10/2019 8:41 AM BUTTER PRINTER 07/10/2019 8:49 AM BUTTER PRINTER Mary Mckenzie MD LAB BLOOD ORDERABLES Fin al Result Performing Organization Address City/[facility]/ZIP Co de Phone Number [facility] 1 [facility] [place] [address] * Potassium, whole blood (07/10/2019 8:41 AM BUTTER PRINTER) Potassium, bld 4.1 3.5 - 5.0 mmol/L [facility] Blood specimen (specimen) 07/10/2019 8:41 AM BUTTER PRINTER 07/10/2019 8:49 AM BUTTER PRINTER Madi Silverio MD LAB BLOOD ORDERABLES Fin al Result [facility] 1 [place] [address] documented in this encounter Visit Diagnoses Diagnosis Primary osteoarthritis of right hip- Primary Primary osteoarthritis of right hip documented in this encounter Admitting Diagnoses Diagnosis Primary osteoarthritis of right hip documented in this encounter Administered Medications Inactive Administered Medications - up to 3 most recent administrations Medication Order MAR Action Action Date Dose Rate Site acetaminophen (TYLENOL) tablet 650 mg 650 mg, oral, Every 6 hours PRN, 1st line for pain, Starting on Katy 07/11/20 at 1326 Given 07/11/2019 8:07 PM BUTTER PRINTER 650 mg Given 07/11/2019 1:33 PM BUTTER PRINTER 650 mg amLODIPine (NORVASC) tablet 5 mg 5 mg, oral, Daily, First dose on Mon07/11/19 at 0900 Given 07/12/2019 8:01 AM BUTTER PRINTER 5 mg ascorbic acid (VITAMIN C) tablet/chewable tablet 500 mg 500 mg, oral, Daily, First dose on Mon07/10/19 at 1515, Indications: Vitamin deficiency preventionIndications:Vitamin deficiency prevention Given 07/12/2019 8:01 AM BUTTER PRINTER 500 mg aspirin enteric coated tablet 325 mg 325 mg, oral, Daily, First dose on Mon07/11/19 at 0900, Do not crush, chew, cut, dissolve, open or otherwise manipulate tablet/capsule., Indications: Deep Vein Thrombosis PreventionIndications:Deep Vein Thrombosis Prevention Given 07/12/2019 8:01 AM BUTTER PRINTER 325 mg ceFAZolin (ANCEF) 2,000 mg/100 mL in dextrose (premix) 2,000 mg 2,000 mg, intravenous, at 200 mL/hr, Administer over 30 Minutes, Every 8 hours, First dose on Mon07/10/19 at 1900, For 2 doses, Beginning 8 hours after last dagoberto-operative dose., Indications: Prophylaxis, SurgicalIndications:Prophylaxis, Surgical New Bag 07/11/2019 2:38 AM BUTTER PRINTER 2,000 mg 200 mL/hr New Bag 07/10/2019 6:35 PM BUTTER PRINTER 2,000 mg 200 mL/hr cholecalciferol (VITAMIN D-3) tablet 2,000 Units 2,000 Units, oral, Daily, First dose on Mon07/10/19 at 1700 Given 07/12/2019 8:01 AM BUTTER PRINTER 2,000 Units famotidine (PEPCID) tablet 10 mg 10 mg, oral, Nightly, First dose (after last modification) on Mon07/11/19 at 2100, Dose of famotidine 10 mg po daily adjusted per renal protocol for CrCl=< 30 ml/min (CrCl=24 ml/min) Estimated Creatinine Clearance: 24 mL/min (A) (by C-G formula based on SCr of 1.32 mg/dL (H))., Indications: HeartburnIndications:Heartburn Given 07/11/2019 8:08 PM BUTTER PRINTER 10 mg famotidine (PEPCID) tablet 20 mg 20 mg, oral, Daily, First dose (after last modification) on Mon07/10/19 at 2100, Indications: HeartburnIndications:Heartburn Given 07/10/2019 8:26 PM BUTTER PRINTER 20 mg ferrous sulfate tablet 325 mg 325 mg (65 mg of elemental iron), oral, Daily with breakfast, First dose on Mon07/11/19 at 0800, Indications: Iron Deficiency Anemia, Anemia preventionIndications:Iron Deficiency Anemia,Anemia prevention Given 07/12/2019 8:01 AM BUTTER PRINTER 325 mg HYDROcodone-acetaminophen (NORCO) 5-325 mg per tablet 1 tablet 1 tablet, oral, Every 4 hours PRN, 1st line for pain, Starting on Mon07/11/19 at 1051, Indications: PainIndications:Pain Given 07/12/2019 12:55 PM BUTTER PRINTER 1 tablet Given 07/12/2019 2:20 AM BUTTER PRINTER 1 tablet Given 07/11/2019 11:14 PM BUTTER PRINTER 1 tablet HYDROcodone-acetaminophen (NORCO) 5-325 mg per tablet 2 tablet 2 tablet, oral, Every 4 hours PRN, 2nd line for pain, Starting on Mon07/11/19 at 1051, Indications: PainIndications:Pain ketorolac (TORADOL) 15 mg/mL injection 15 mg 15 mg, intravenous, Every 6 hours, First dose on Mon07/10/19 at 1515, For 2 doses, Indications: PainIndications:Pain Given 07/10/2019 8:26 PM BUTTER PRINTER 15 mg Given 07/10/2019 3:43 PM BUTTER PRINTER 15 mg Lactated Ringer's (LR) infusion 30 mL/hr, intravenous, Continuous, Starting on Mon07/10/19 at 0845, Pre-Op New Bag 07/10/2019 11:59 AM BUTTER PRINTER Rate/Dose Verify 07/10/2019 10:37 AM BUTTER PRINTER New Bag 07/10/2019 10:34 AM BUTTER PRINTER 30 mL/hr 30 mL/hr ondansetron (ZOFRAN) injection 4 mg 4 mg, intravenous, Administer over 2 Minutes, Every 6 hours PRN, nausea, vomiting, if not tolerating PO, Starting on Mon07/10/19 at 1430, Indications: nausea and vomitingIndications:nausea and vomiting Given 07/11/2019 8:57 AM BUTTER PRINTER 4 mg Given 07/10/2019 3:17 PM BUTTER PRINTER 4 mg ondansetron ODT (ZOFRAN-ODT) disintegrating tablet 4 mg 4 mg, oral, Every 6 hours PRN, nausea, vomiting, Starting on Mon07/10/19 at 1430, Indications: nausea and vomitingIndications:nausea and vomiting oxyCODONE (ROXICODONE) tablet 5 mg 5 mg, oral, Every 4 hours PRN, breakthrough pain, Starting on Mon07/10/19 at 1430, Indications: PainIndications:Pain Given 07/11/2019 3:59 AM BUTTER PRINTER 5 mg oxyCODONE ER (OxyCONTIN) extended release tablet 10 mg 10 mg, oral, Every 12 hours scheduled, First dose on Mon07/10/19 at 2100, Do not crush, chew, cut, dissolve, open or otherwise manipulate tablet/capsule. Given 07/10/2019 8:26 PM BUTTER PRINTER 10 mg oxyCODONE ER (OxyCONTIN) extended release tablet 20 mg 20 mg, oral, Once, On Mon07/10/19 at 0845, For 1 dose, Pre-Op, Do not crush, chew, cut, dissolve, open or otherwise manipulate tablet/capsule., Indications: PainIndications:Pain Given 07/10/2019 10:33 AM BUTTER PRINTER 20 mg oxyCODONE-acetaminophen (PERCOCET) 5-325 mg per tablet 2 tablet 2 tablet, oral, Every 4 hours PRN, 2nd line for pain, Starting on Mon07/10/19 at 1415, Indications: PainIndications:Pain Given 07/11/2019 7:42 AM BUTTER PRINTER 2 ta blets Given 07/11/2019 1:33 AM BUTTER PRINTER 2 tablets Given 07/10/2019 2:25 PM BUTTER PRINTER [address] (PROTONIX) extended release tablet 40 mg 40 mg, oral, Daily, First dose (after last modification) on Mon07/11/19 at 0900, Do not crush, chew, cut, dissolve, open or otherwise manipulate tablet/capsule., Indications: GERDIndications:GERD Given 07/12/2019 8:01 AM BUTTER PRINTER 40 mg pramipexole (MIRAPEX) tablet 0.125 mg 0.125 mg, oral, Daily, First dose on Mon07/10/19 at 1700 Given 07/12/2019 8:01 AM BUTTER PRINTER 0.125 mg prochlorperazine (COMPAZINE) injection 5 mg 5 mg, intravenous, Administer over 2 Minutes, Every 6 hours PRN, nausea, vomiting, Starting on Mon07/10/19 at 1605 Given 07/11/2019 10:07 AM BUTTER PRINTER 5 mg Given 07/10/2019 4:19 PM BUTTER PRINTER 5 mg propranolol (INDERAL) tablet 20 mg 20 mg, oral, 2 times daily, First dose on Mon07/10/19 at 2100 Given 07/12/2019 8:01 AM BUTTER PRINTER 20 mg Given 07/11/2019 8:07 PM BUTTER PRINTER 20 mg Given 07/10/2019 8:26 PM BUTTER PRINTER 20 mg senna-docusate (PERICOLACE) 8.6-50 mg per tablet 2 tablet 2 tablet, oral, 2 times daily, First dose on Mon07/10/19 at 2100, Hold for diarrhea., Indications: constipationIndications:constipation Given 07/12/2019 8:01 AM BUTTER PRINTER 2 table ts Given 07/11/2019 8:07 PM BUTTER PRINTER 2 tablets Given 07/10/2019 8:26 PM BUTTER PRINTER 2 tablets sodium chloride 0.9% infusion 125 mL/hr, intravenous, Continuous, Starting on Mon07/10/19 at 1515 New Bag 07/10/2019 5:14 PM BUTTER PRINTER 125 mL/hr 125 mL/hr spironolactone (ALDACTONE) tablet 25 mg 25 mg, oral, Daily, First dose on Mon07/10/19 at 1515 Given 07/12/2019 8:01 AM BUTTER PRINTER 25 mg documented in this encounter Discontinued [...] Recently Administered Medications Times are shown in BUTTER PRINTER. Scheduled Medication Order 07/10/2019 07/11/2019 07/12/2019 amLODIPine [...] 325 mg, oral, Daily, First dose on Katy 07/11/19 at 0900, Do not crush, chew, cut, [...] 08 (Given - Provider: Cora Maguire RN) famotidine [...] Indications: Heartburn 2007 (Given - Provider: Benita Tuttle RN) famotidine (PEPCID) tablet 20 mg (CANCELED) 20 [...] Daily, First dose (after last modification) on Katy 07/11/19 at 0900, Do not crush, chew, cut, [...] refused)2006 (Given - Provider: Benita Tuttle RN) 0801 (Given - Provider: Cora Maguire RN) sodium [...] line for pain, Starting on Mon07/11/19 at 1326 1333 (Given - Provider: Chrystal [...] Indications: Pain 2314 (Given - Provider: Benita Tuttle, RN) 0220 (Given - Provider: Susan De León, XU)1255 (Given - Provider: Cora Maguire RN - [...] - Provider: Yasmine Carlos, XU)[facility]: Benita Tuttle RN) oxyCODONE-acetaminophen [...] mg per tablet 2 tablet 1 07/11/2019 bacitracin 100,000 Units, po lymyxin B 1,000,000 Units in sodium chloride 0.9% 1,000 mL irrigation solution 2 07/10/2019 bisacodyl EC (DULCOLAX EC) tablet 10 mg 1 0 07/10/2019 bupivacaine (MARCAINE) 50 mg , morphine 10 mg, EPINEPHrine 0.3 mg in sodium chloride 0.9% 20 mL topical solution 1 07/10/2019 calcium carbonate (TUMS) chana wable tablet 1,000 mg 1 07/10/2019 ceFAZolin (ANCEF) 1 gram/10 mL in sterile water (premix) 2,000 mg 1 07/10/2019 diphenhydrAMINE (BENADRYL) tab/cap 25 mg 1 07/10/2019 famotidine (PEPCID) tablet 20 mg 1 07/10/19 20 fentaNYL (SUBLIMAZE) preserv ative free injection 25 mcg 1 07/10/2019 fentaNYL (SUBLIMAZE) preserv ative free injection 50 mcg 1 07/10/2019 magnesium hydroxide (MILK OF MAGNESIA) 80 mg/mL (33.3 mg/mL as elemental magnesium) oral suspension 30 mL 07/10/2019 mineral oil (FLEET MINERAL O IL) enema 1 enema 1 07/10/2019 naloxone (NARCAN) 0.4 mg/mL injection 0.04-0.4 mg 07/10/2019 ondansetron (ZOFRAN) injection 4 mg 1 07/10 ondansetron ODT (ZOFRAN-ODT) disintegrating tablet 4 mg 1 07/10/2019 oxyCODONE-acetaminophen (PER COCET) 5-325 mg per tablet 1 tablet 1 07/10/[address] (PROTONIX) e xtended release tablet 20 mg 1 07/10/2019 povidone-iodine (BETADINE) 1 20 mL in sodium chloride 0.9 % 900 mL solution 1 07/10/2019 sodium chloride 0.9% flush 0.5-20 mL 3 06/20 tranexamic acid (CYKLOKAPRON ) 1,350 mg in sodium chloride 0.9% 100 mL 07/10/2019 General Supply Count Last Ordered Date [...] 07/04/2019 documented in this encounter Care Teams Senior Sas Programmer Relationship Specialty Start Date End Date Pepper Morgan MD PCP - General 09/16/16 Hank Garibay MD 4 [facility] [address] [place] [address] Surgeon Orthopedic Surgery 03/27/17 Jacky Murry MD 4 [facility] [address] [place] [address] Ophthalmology 03/27/17 Mary Mckenzie MD 4 [facility] [address] [place] [address] Surgeon Orthopedic Surgery 07/11/19 documented as of this encounter
--- OUTSIDE RECORDS SUMMARY | 2024-06-18 19:02 | XMS_ITS | Encounter Summary ---
Author Organization [facility] Address [address] [place] [address] Care Team Providers Care Attending Pathologist Name Role Phone Pepper Morgan MD Primary Care Provider + [phone] Hank Garibay MD Unavailable [phone] Jacky Murry MD Unavailable [phone] Puma Mckenzie MD Unavailable [phone] Encounter Details Date Type Department Care Team (Late st Contact Info) Description 07/19/2019 Telephone [facility] Orthopedics and Sports Medicine [address], [place] [address] Hannah Emmanuel, TEO [address] [place] [address] Social History Tobacco Use Types Packs/Day Years [...] on file Legal Sex Female 4:33 AM PLASTIC PANEL INSTALLER Gender Identity Not on file Sexual Orientation Not on file Occupation Industry Job Start Date Job End Date retired Not on file Not on file Not on file documented as of this encounter Miscellaneous Notes * Telephone Encounter - Hannah Emmanuel PA - 07/19/2019 10:37 AM PLASTIC PANEL INSTALLER Called patient to monitor her status following surgery. She states the swelling is still present inher leg. She continues to rest, elevate, and use ice to help with swelling. She has no further concerns. I've encouraged her to contact our office with any further questions or concerns. All questions answered. TIC PANEL INSTALLER documented in this encounter Plan of Treatment Not on file documented as of this encounter Visit Diagnoses Not on filedocumented in this encounter Care Teams Attending Pathologist Relationship Specialty Start Date End Date Pepper Morgan MD PCP - General 09/16/16 Hank Garibay MD [address] [facility] [address] [place] [address] Surgeon Orthopedic Surgery 03/27/17 Jacky Murry MD [address] [place] [address] [address] [place] [address] Ophthalmology 03/27/17 Puma Mckenzie MD [address] [place] [address] [address] [place] [address] Surgeon Orthopedic Surgery 07/11/19 documented as of this encounter
--- OUTSIDE RECORDS SUMMARY | 2024-06-18 19:03 | XMS_ITS | Encounter Summary ---
Author Organization [facility] Address [address] [place] [address] Phone Care Team Providers Care Rumper Name Role Phone Pepper Morgan MD Primary Care Provider + [phone] Hank Garibay MD Unavailable [phone] Jacky Murry MD Unavailable [phone] Encounter Details Date Type Department Care Team (Late st Contact Info) Description 10/10/2017 Telephone [facility] [address] [place] [address] Lilian Casey LPN Social History Tobacco Use Types Packs/Day Years Used Date Smoking Tobacco: Former Smokeless Tobacco: Never Alcohol Use Standard Drinks/Week Comments Yes 0 (1 standard drink = 0.6 oz pur e alcohol) Comments No Sex and Gender Information Value Date Recorded Sex Assigned at Not on file Legal Sex Female 4:33 AM FINANCIAL LEGAL ASSISTANT Gender Identity Not on file Sexual Orientation Not on file Occupation Industry Job Start Date Job End Date retired Not on file Not on file Not on file documented as of this encounter Miscellaneous Notes * Telephone Encounter - Lilian Casey LPN - 10/10/2017 9:28 AM CDT Contacted pt and notified * Telephone Encounter - Lilian Casey LPN - 10/10/2017 8:09 AM CDT Images from the original note were not included. Pepper Morgan MD P [facility] Staff Pool ?? Inform she did fine on the heart monitor documented in this encounter Plan of Treatment Not on file documented as of this encounter Visit Diagnoses Not on filedocumented in this encounter Care Teams Rumper Relationship Specialty Start Date End Date Pepper Morgan MD PCP - General 09/16/16 Hank Garibay MD [address] [facility] [address] [place] [address] Surgeon Orthopedic Surgery 03/27/17 Jacky Murry MD [address] [place] [address] [address] [place] [address] Ophthalmology 03/27/17 documented as of this encounter
--- OUTSIDE RECORDS SUMMARY | 2024-06-18 19:03 | XMS_ITS | Encounter Summary ---
Author Organization [facility] Address [address] [place] [address] Care Team Providers Care Drafter Refrigeration Name Role Phone Pepper Morgan MD Primary Care Provider + [phone] Hank Garibay MD Unavailable [phone] Jacky Murry MD Unavailable [phone] Encounter Details Date Type Department Care Team (Late st Contact Info) Description 11/01/2018 Telephone [facility] [address] [place] [id number] Pepper Morgan MD [address] [place] [address] Social History Tobacco Use Types Packs/Day Years Used Date Smoking Tobacco: Former Smokeless Tobacco: Never Alcohol Use Standard Drinks/Week Comments Not Currently 0 (1 standard drink = 0.6 oz pur e alcohol) Comments No Sex and Gender Information Value Date Recorded Sex Assigned at Not on file Legal Sex Female 4:33 AM SEAT INSTALLER Gender Identity Not on file Sexual Orientation Not on file Occupation Industry Job Start Date Job End Date retired Not on file Not on file Not on file documented as of this encounter Miscellaneous Notes * Telephone Encounter - Anuja Rome RN - 11/02/2018 12:28 PM CDT Called and spoke to pt for update: States, feeling much better. States, BP is improved this morning at 127/72. Instructed to call if BP starts to trend back upward. Pt states, I think I had too much salt in my diet the first part of the week. To DR RANGEL: Update * Telephone Encounter - Anuja Rome RN - 11/01/2018 9:16 AM CDT Called and spoke to pt. States, had office visit with Dr RANGEL on . My BP was high during the visit of /? States, DR RANGEL changed some of my BP meds. Now, at night, my face and ears become red and flushed and my BP last night was 194/113. Denies any visual changes or other symptoms. States, this morning, my BP is 123/71. Instructed pt that I would get msg to DR RANGEL. Pt declines a sick call with Lincoln Jones NP. Instructed pt to continue to monitor and record BP readings. Instructed to go to ER if she has an elev BP and has any symptoms such as chest pain, visual changes, headache, SOB. Pt verbalized understanding. To Dr RANGEL: Please advise/ty * Telephone Encounter - Eri Owens - 11/01/2018 8:48 AM CDT [facility] [place]#[phone] patient Pt state her BP is running high. Pt has had a headache and her face feels realhot. Patients BP is 194/113. Please advise documented in this encounter Plan of Treatment Not on file documented as of this encounter Visit Diagnoses Not on filedocumented in this encounter Care Teams Drafter Refrigeration Relationship Specialty Start Date End Date Pepper Morgan MD PCP - General 09/16/16 Hank Garibay MD 4 [facility] [address] [place] [address] Surgeon Orthopedic Surgery 03/27/17 Jacky Murry MD 4 [facility] [address] [place] [address] Ophthalmology 03/27/17 documented as of this encounter
--- OUTSIDE RECORDS SUMMARY | 2024-06-18 19:03 | XMS_ITS | Encounter Summary ---
Author Organization [facility] Medical Group Address [address] [facility] [address] [place] [address] Care Team Providers Care Vacuum Cleaner Mechanic Name Role Phone Pepper Morgan MD Primary Care Provider + [phone] Hank Garibay MD Unavailable [phone] Jacky Murry MD Unavailable [phone] Reason for Visit * Reason Comments Follow-up Encounter Details Date Type Department Care Team (Late st Contact Info) Description 05/08/2017 10:30 AM FLAT CLOTHIER Office Visit [facility]ics and [facility] Medicine 4 [facility] [address] [place] [id number] Hank Garibay MD [address] [place] [address] [address] [facility] [address] [place] [address] Aftercare following left knee joint replacement surgery (Primary Dx) Social History Tobacco Use Types Packs/Day Years Used Date Smoking Tobacco: Former Smokeless Tobacco: Never Alcohol Use Standard Drinks/Week Comments Yes 0 (1 standard drink = 0.6 oz pur e alcohol) Comments No Sex and Gender Information Value Date Recorded Sex Assigned at Not on file Legal Sex Female 4:33 AM FLAT CLOTHIER Gender Identity Not on file Sexual Orientation Not on file documented as of this encounter Last Filed Vital Signs Vital Sign Reading Time Taken Comments Blood Pressure 158/80 05/08/2017 11:25 AM FLAT CLOTHIER Pulse 52 05/08/2017 11:25 AM FLAT CLOTHIER Temperature - - Respiratory Rate - - Oxygen Saturation - - Inhaled Oxygen Concentration - - Weight 87.5 kg (193 lb) 05/08/2017 11:25 AM FLAT CLOTHIER Height 154.9 cm (5' 1 ) 05/08/2017 11:25 AM FLAT CLOTHIER Body Mass Index 36.47 05/08/2017 11:25 AM FLAT CLOTHIER documented in this encounter Progress Notes * Katarzyna Maguire PA - 05/08/2017 10:30 AM CST FOLLOW UP VISIT Subjective CHIEF COMPLAINT She had concerns including Follow-up of the Left Knee. HISTORY OF PRESENT ILLNESS Patient presents for s/p left TKA 03/10/17. Patient denies pain today and states she is doing well. Pain Assessment Pain Assessment: No/denies pain MEDICATIONS She has a current medication list which includes the following prescription(s): aspirin, duloxetinedr, famotidine-ca carb-mag hydrox, felodipine, pramipexole, and propranolol. REVIEW OF SYSTEMS Review of Systems Constitutional: [...] Genitourinary: Negative for difficulty urinating and hematuria. Skin: Negative for color change, rash and wound. Allergic/Immunologic: Negative for environmental allergies. Neurological: Negative for dizziness, syncope, numbness and headaches. Hematological: Negative for adenopathy. Does not bruise/bleed easily. Psychiatric/Behavioral: Negative for confusion. The patient is not nervous/anxious and is not hyperactive. Objective PHYSICAL EXAM BP 158/80 Pulse 52 Ht 154.9 cm (5' 1 ) Wt 87.5 kg (193 lb) LMP (LMP Unknown) BMI 36.47 kg/m?? Right knee The patient has normal inspection, palpation, range of motion, strength, and stabilty of the right knee. Left knee Inspection Surgical scar/wound: present. The surgical scar/wound is healing and no evidence of infection. Palpation The patient has normal palpation of the left knee. Range of motion The patient has normal range of motion of the left knee. The patient has abnormal range of motion of the left knee at baseline, but unchanged from baseline. Active flexion: 106-110 Stability The patient has abnormal stabiltiy of the left knee. Strength The patient has 5/5 strength throughout. Neurovascular The patient has normal sensation on the left side of their body. REVIEW OF X-RAYS/STUDIES/LABS Assessment/Plan Tess was seen today for follow-up. Diagnoses and all orders for this visit: Aftercare following left knee joint replacement surgery Procedures PLAN Patient seen with Dr. Garibay. Patient to FU in 1 year. Patient to call with any questions or concerns, she was in full agreement of this plan. KATHERINE Garduno MA CLOTHIER documented in this encounter Plan of Treatment Not on file documented as of this encounter Visit Diagnoses Diagnosis Aftercare following left knee joint replacement surgery- Primary documented in this encounter Care Teams Vacuum Cleaner Mechanic Relationship Specialty Start Date End Date Pepper Morgan MD PCP - General 09/16/16 Hank Garibay MD [address] [facility] [address] WARNER Sheridan [facility] [address] [place] [address] Surgeon Orthopedic Surgery 03/27/17 Jacky Murry MD [address] [facility] [address] WARNER Sher[address] [place] [address] Ophthalmology 03/27/17 documented as of this encounter
--- OUTSIDE RECORDS SUMMARY | 2024-06-18 19:03 | XMS_ITS | Encounter Summary ---
Author Organization [facility] Medical Group Address [address] [facility] [address] [place] [address] Care Team Providers Care Engraver Picture Name Role Phone Pepper Morgan MD Primary Care Provider [phone] Hank Garibay MD Unavailable [phone] Jacky Murry MD Unavailable [phone] Reason for Visit * Reason Comments Sinus Problem Hypertension Encounter Details Date Type Department Care Team (Late st Contact Info) Description 05/15/2018 10:30 AM BUSINESS EMPLOYMENT SPECIALIST Office Visit [facility] [address] [place] [id number] Lillian Jones NP [address] [address] Acute maxillary sinusitis, recurrence not specified (Primary Dx); Cough; Benign hypertension Social History Tobacco Use Types Packs/Day Years Used Date Smoking Tobacco: Former Smokeless Tobacco: Never Alcohol Use Standard Drinks/Week Comments Yes 0 (1 standard drink = 0.6 oz pur e alcohol) Comments No Sex and Gender Information Value Date Recorded Sex Assigned at Not on file Legal Sex Female 4:33 AM BUSINESS EMPLOYMENT SPECIALIST Gender Identity Not on file Sexual Orientation Not on file Occupation Industry Job Start Date Job End Date retired Not on file Not on file Not on file documented as of this encounter Last Filed Vital Signs Vital Sign Reading Time Taken Comments Blood Pressure 154/78 05/15/2018 10:30 AM BUSINESS EMPLOYMENT SPECIALIST Pulse 57 05/15/2018 10:19 AM BUSINESS EMPLOYMENT SPECIALIST Temperature 36.1 ??C (97 ??F) 05/15/2018 10:19 AM BUSINESS EMPLOYMENT SPECIALIST Respiratory Rate 20 05/15/2018 10:19 AM BUSINESS EMPLOYMENT SPECIALIST Oxygen Saturation 96% 05/15/2018 10:19 AM BUSINESS EMPLOYMENT SPECIALIST Inhaled Oxygen Concentration - - Weight 88 kg (194 lb) 05/15/2018 10:19 AM BUSINESS EMPLOYMENT SPECIALIST Height 154.9 cm (5' 1 ) 05/15/2018 10:19 AM BUSINESS EMPLOYMENT SPECIALIST Body Mass Index 36.66 05/15/2018 10:19 AM BUSINESS EMPLOYMENT SPECIALIST documented in this encounter Patient Instructions * Patient Instructions* Lillian Jones NP - 05/15/2018 10:30 AM BUSINESS EMPLOYMENT SPECIALIST Return in 6 months (on 10/30/2018) for 6mos appt with Dr. RANGEL. Take Amoxicillin 1 tab 3 times daily as directed with food. Sinus infection will require continuation of the rhinitis care as well as use of antibiotics: Sinus rinses 1-2 times daily. Robitussion/Delsym at nighttime. Guaifenesin (mucinex) 400mg 2-4 times daily. Flonase 1-2 sprays each nostril 1-2 times daily. Tesslon pearles 1 tab 3 times daily for sore throat and cough. Increase water intake. Cool mist humidifier at bedside. May need to elevate head of bed at nighttime. Cover mouth and nose while out in the elements. Practice good hand hygiene regularly. Use one tissue and dump it. Call AMS if symptoms do not improve in 10 days. Follow-up with AMS for regularly scheduled appointments or sooner for acute care needs. Blood pressure monitor noted to be accurate today and dependable. No changes to current BP medications. NESS EMPLOYMENT SPECIALIST NESS EMPLOYMENT SPECIALIST NESS EMPLOYMENT SPECIALIST NESS EMPLOYMENT SPECIALIST NESS EMPLOYMENT SPECIALIST documented in this encounter Ordered Prescriptions Prescription Sig Dispense Quantity Refills Last Filled Start Date End Date benzonatate (TESSALON) 100 mg capsuleIndications :Cough Take 1 capsule (100 mg total) by mouth 3 (three) times a day as needed for cough. 60 capsule 05/15/2018 8 amoxicillin (amoxicillin) 500 mg tablet/capsuleIndi cations:Upper Respiratory/HEENT Infection Take 1 tablet/capsul e (500 mg total) by mouth 2 (two) times a day for 10 days. Take with food. 20 tablet/capsule 05/15/2018 8 documented in this encounter Progress Notes * Lillian Jones NP - 05/15/2018 10:30 AM CST Images from the original note were not included. Subjective/Objective Patient ID: Tess Benedict is a 82 y.o. female presenting in office today with chief complaint recent illness and BP recheck. She has been c/o coughing, tightness in throat, thick yellow/brown secretions, sinus pressure, ear pressure, chills, fatigue for the past week. She states the coughing is getting worse and she is able to spit up thick secretions and blow out a lot from her nose. She has been doing sinus rinses, nasal sprays, mucinex, and aleve. Denies measured fevers, wheezing, SOB, hemoptysis, jaw pain, chest pain, arm pain, N/V/D, abdominalpain, extremity edema. She also brought her home BP monitor and log today be checked for accuracy as recommended by by at last appt. She is taking felodipine 2.5mg QD and propranolol 20mg BID as directed. Home BP machine - 158/80 - home monitor noted to be accurate. Home readings have been ranging from 130-151/67-88 pulse 50-60s. Vitals: 05/15/18 1019 05/15/18 1030 BP: 166/80 154/78 Pulse: 57 Resp: 20 Temp: 36.1 ??C (97 ??F) SpO2: 96% Weight: 88 kg (194 lb) Height: 154.9 cm (5' 1 ) Chief Complaint Sinus Problem and Hypertension HPI Review of Systems Constitutional: Positive for chills (intermittent) and fatigue. Negative for activity change, appetite change and fever. HENT: Positive for congestion, postnasal drip, sinus pain, sinus pressure and sore throat. Negativefor trouble swallowing. Ear pain: ear pressure. Respiratory: Positive for cough. Negative for shortness of breath and wheezing. Cardiovascular: Negative for chest pain, palpitations and leg swelling. Gastrointestinal: Negative for abdominal pain, diarrhea, nausea and vomiting. Skin: Negative for pallor. Neurological: Positive for headaches. Negative for dizziness. Physical Exam Constitutional: She is oriented to person, place, and time. She appears well- developed. No distress. HENT: Head: Normocephalic. Right Ear: Tympanic membrane, external ear and ear canal normal. Left Ear: Tympanic membrane, external ear and ear canal normal. Nose: Mucosal edema and rhinorrhea present. Right sinus exhibits maxillary sinus tenderness. Left sinus exhibits maxillary sinus tenderness. Mouth/Throat: Uvula is midline and mucous membranes are normal. No uvula swelling. Posterior oropharyngeal erythema (mild) present. Tonsils are 0 on the right. Tonsils are 0 on the left. Eyes: EOM are normal. Neck: Normal range of motion. Neck supple. Cardiovascular: Normal rate, regular rhythm and normal heart sounds. No murmur heard. Pulmonary/Chest: Effort normal and breath sounds normal. No accessory muscle usage. She has no decreased breath sounds. She has no wheezes. Musculoskeletal: She exhibits no edema. Lymphadenopathy: She has no cervical adenopathy. Neurological: She is alert and oriented to person, place, and time. Skin: Skin is warm and dry. Capillary refill takes less than 2 seconds. Psychiatric: She has a normal mood and affect. Her behavior is normal. Assessment/Plan Diagnoses and all orders for this visit: Acute maxillary sinusitis, recurrence not specified (J01.00) (Primary) - amoxicillin (amoxicillin) 500 mg tablet/capsule; Take 1 tablet/capsule (500 mg total) by mouth 2 (two) times a day for 10 days. Take with food. Take Amoxicillin 1 tab 3 times daily as directed with food. Sinus infection will require continuation of the rhinitis care as well as use of antibiotics: Sinus rinses 1-2 times daily. Robitussion/Delsym at nighttime. Guaifenesin (mucinex) 400mg 2-4 times daily. Flonase 1-2 sprays each nostril 1-2 times daily. Increase water intake. Cool mist humidifier at bedside. May need to elevate head of bed at nighttime. Cover mouth and nose while out in the elements. Practice good hand hygiene regularly. Use one tissue and dump it. Call AMS if symptoms do not improve in 10 days. Follow-up with AMS for regularly scheduled appointments or sooner for acute care needs. Cough (R05) - benzonatate (TESSALON) 100 mg capsule; Take 1 capsule (100 mg total) by mouth 3 (three) times a day as needed for cough. Tesslon pearles 1 tab 3 times daily for sore throat and cough. Benign hypertension (I10) Blood pressure monitor noted to be accurate today and dependable. No changes to current BP medications. Lillian Jones NP Cosigned by Pepper Morgan MD at 05/16/2018 6:44 AM BUSINESS EMPLOYMENT SPECIALIST NESS EMPLOYMENT SPECIALIST NESS EMPLOYMENT SPECIALIST documented in this encounter Plan of Treatment Not on file documented as of this encounter Visit Diagnoses Diagnosis Acute maxillary sinusitis, recurrence not specified- Primary Cough Benign hypertension Essential hypertension, benign documented in this encounter Care Teams Engraver Picture Relationship Specialty Start Date End Date Pepper Morgan MD PCP - General 09/16/16 Hank Garibay MD [address] [facility] [address] WARNER Sheridan [address] [place] [address] Surgeon Orthopedic Surgery 03/27/17 Jacky Murry MD [address] [facility] [address] WARNER [address] [place] [address] Ophthalmology 03/27/17 documented as of this encounter
--- OUTSIDE RECORDS SUMMARY | 2024-06-18 19:03 | XMS_ITS | Encounter Summary ---
Author Organization [facility] Healthcare Address [address] [place] [address] Care Team Providers Care Drilling Field Specialist Name Role Phone Pepper Morgan MD Primary Care Provider [phone]- [phone] Hank Garibay MD Unavailable [phone] Jacky Murry MD Unavailable [phone] Encounter Details Date Type Department Care Team (Late st Contact Info) Description 03/11/2019 1:20 PM CDT Lab [address] [address] Epigastric pain; Chronic GERD Social History Tobacco Use Types Packs/Day Years Used Date Smoking Tobacco: Former Smokeless Tobacco: Never Alcohol Use Standard Drinks/Week Comments Not Currently 0 (1 standard drink = 0.6 oz pur e alcohol) Comments No Sex and Gender Information Value Date Recorded Sex Assigned at Not on file Legal Sex Female 4:33 AM BILINGUAL OFFICE ASSISTANT Gender Identity Not on file Sexual Orientation Not on file Occupation Industry Job Start Date Job End Date retired Not on file Not on file Not on file documented as of this encounter Plan of Treatment Not on file documented as of this encounter Procedures Procedure Name Priority Date/Time Associated Diagnosis Comments EGFR Routine 03/11/2019 2:25 PM CDT Epigastric pain Chronic GERD LIPASE Routine 03/11/2019 2:25 PM CDT Epigastric pain Chronic GERD AMYLASE Routine 03/11/2019 2:25 PM CDT Epigastric pain Chronic GERD COMPREHENSIVE METABOLIC PANEL Routine 03/11/2019 2:25 PM CDT Epigastric pain Chronic GERD DIFFERENTIAL AUTO Routine 03/11/2019 2:2 4 PM CDT Epigastric pain Chronic GERD CBC WITH AUTO DIFFERENTIAL Routine 03/11/2019 2:24 PM CDT Epigastric pain Chronic GERD documented in this encounter Results * eGFR (03/11/2019 2:25 PM CDT) Pathologist [facility] eGFR 87 mL/min/1.7 3 m2 [facility] Comment: Interpretive Data Reference Interval Normal ?>/= 90 mL/min/1.73m2 Mildly decreased* ? 60 - 89 mL/min/1.73m2 Mildly to moderately decreased ?45 - 59 mL/min/1.73m2 Moderately to severely decreased ??30 - 44 mL/min/1.73m2 Severely decreased ?15 - 29 mL/min/1.73m2 Kidney Failure ?< 15 ??mL/min/1.73m2 *Relative to young adult level If -Swedish multiply value by 1.16. Estimated glomerular filtration [...] was last reviewed 2016. Blood specimen (specimen) 03/11/2019 2:25 PM CDT 03/11/2019 2:25 PM CDT us Lillian Jones NP LAB [place]LO[place] [address] [place] [address] * (ABNORMAL) Comprehensive metabolic panel (03/11/2019 2:25 PM CDT) Sodium 130(L) 135 - 145 mmol/L [facility] Potassium, pl 4.4 3.3 - 4.9 mmol/L [facility] Chloride 91(L) 97 - 110 mmol/L [facility] CO2 29 22 - 32 mmol/L [facility] Anion gap 10 2 - 15 mmol/L [facility] BUN 14 8 - 25 mg/dL [facility] Creatinine 0.56(L) 0.60 - 1.10 mg/dL [facility] Glucose 104 70 - 199 mg/dL [facility] Comment: [...] 6.5 - 8.5 g/dL [facility] Albumin 3.6 3.5 - 5.0 g/dL [facility] Alk phos 100 40 - 130 Units/L [facility] ALT 11 7 - 45 Units/L [facility] AST 18 10 - 45 Units/L [facility] Blood specimen (specimen) 03/11/2019 2:25 PM CDT 03/11/2019 2:25 PM CDT us Lillian Jones NP LAB BLOOD ORDERABLES Final Result Performing Organization Address [facility] de Phone Number [facility] [id number] [place] [address] * Amylase (03/11/2019 2:25 PM CDT) Amylase 68 30 - 99 Units/L [facility] Blood specimen (specimen) 03/11/2019 2:25 PM CDT 03/11/2019 2:25 PM CDT Lillian Kelsy Jones NP LAB BLOOD ORDERABLES Final Result Performing Organization Address [facility] de Phone Number [facility] [id number] [place] [address] * Lipase (03/11/2019 2:25 PM CDT) Lipase 61 10 - 99 Units/L [facility] Blood specimen (specimen) 03/11/2019 2:25 PM CDT 03/11/2019 2:25 PM CDT Lillian Kelsy Jones NP LAB BLOOD ORDERABLES Final Result Performing Organization Address [facility] de Phone Number [facility] [address] [place] [address] * Differential, auto (03/11/2019 2:24 PM CDT) Neutrophil abs 6.4 1.7 - 6.5 K/cumm [facility] Imm gran abs 0.0 0.0 - 0.1 K/cumm [facility] Lymphocyte abs 1.3 0.8 - 3.3 K/cumm [facility] Monocyte abs 0.8 0.2 - 0.8 K/cumm [facility] Eosinophil abs 0.5 0.0 - 0.5 K/cumm [facility] Basophil abs 0.1 0.0 - 0.1 K/cumm [facility] Neutrophil pct 70.1 % [facility] Comment: Interpretive Data Percent cell count reference ranges are not reported, since discordance with absolute values may lead to misinterpretation of CBC data. Current Interpretive Data was last revised on 2017. Imm gran pct 0.6 % [facility] Comment: Interpretive Data Percent cell count reference ranges are not reported, since discordance with absolute values may lead to misinterpretation of CBC data. Current Interpretive Data was last revised on 2017. Lymphocyte pct 14.3 % [facility] Comment: Interpretive Data Percent cell count reference ranges are not reported, since discordance with absolute values may lead to misinterpretation of CBC data. Current Interpretive Data was last revised on 2017. Monocyte pct 8.4 % [facility] Comment: Interpretive Data Percent [...] revised on 2017. Basophil pct 0.9 % [facility] Comment: Interpretive Data Percent cell count reference ranges are not reported, since discordance with absolute values may lead to misinterpretation of CBC data. Current Interpretive Data was last revised on 2017. Blood specimen (specimen) 03/11/2019 2:24 PM CDT 03/11/2019 2:24 PM CDT us Lillian Jones NP LAB BLOOD ORDERABLES Final Result [facility] [address] [place] [address] * CBC with auto differential (03/11/2019 2:24 PM CDT) WBC 9.1 3.8 - 9.9 K/cumm [facility] Hgb 13.4 11.9 - 15.5 g/dL [facility] Hct 41.3 35.6 - 45.5 % [facility] Plt 357 150 - 400 K/cumm [facility] MPV 9.7 9.1 - 12.3 fL [facility] RBC 4.76 3.90 - 5.20 M/cumm [facility] MCV 86.8 81.3 - 96.4 fL [facility] MCH 28.2 27.1 - 33.3 pg [facility] MCHC 32.4 32.3 - 35.7 g/dL [facility] RDW CV 13.6 11.1 - 14.9 % [facility] RDW SD 43.5 35.7 - 48.1 fL [facility] NRBC abs 0.00 0.00 - 0.01 K/cumm [facility] Blood specimen (specimen) 03/11/2019 2:24 PM CDT 03/11/2019 2:24 PM CDT us Lillian Jones [facility] LAB BLOOD ORDERABLES Final Result [facility] [id number] [place] [address] documented in this encounter Visit Diagnoses Diagnosis Epigastric pain Abdominal pain, epigastric Chronic GERD documented in this encounter Care Teams Drilling Field Specialist Relationship Specialty Start Date End Date Pepper Morgan MD PCP - General 09/16/16 Hank Garibay MD [address] [place] [address] DR WARNER Sheridan [address] [address] Surgeon Orthopedic Surgery 03/27/17 Jacky Murry MD [address] [place] [address] DR WARNER Sheridan [address] [address] Ophthalmology 03/27/17 documented as of this encounter
--- OUTSIDE RECORDS SUMMARY | 2024-06-18 19:03 | XMS_ITS | Encounter Summary ---
Author Organization [facility] Address [address] [facility] [address] [place] [id number] Care Team Providers Care Automatic Packer Operator Name Role Phone Pepper Morgan MD Primary Care Provider + [phone] Hank Garibay MD Unavailable [phone] Jacky Murry MD Unavailable +[phone] Reason for Visit * Reason Comments Follow-up 6 month Encounter Details Date Type Department Care Team (Late st Contact Info) Description 10/30/2018 10:20 AM CDT Office Visit [facility] [address] [place] [address] Pepper Morgan MD [address] [place] [address] Benign hypertension (Primary Dx); Transient insomnia; Restless legs syndrome; Hereditary essential tremor; Iliotibial band syndrome, left leg Social History Tobacco Use Types Packs/Day Years Used Date Smoking Tobacco: Former Smokeless Tobacco: Never Alcohol Use Standard Drinks/Week Comments Not Currently 0 (1 standard drink = 0.6 oz pur e alcohol) Comments No Sex and Gender Information Value Date Recorded Sex Assigned at Not on file Legal Sex Female 4:33 AM FOUNDRY WORKER 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 Gender Identity Not on file Sexual Orientation Not on file Occupation Industry Job Start Date Job End Date retired Not on file Not on file Not on file documented as of this encounter Last Filed Vital Signs Vital Sign Reading Time Taken Comments Blood Pressure 154/94 10/30/2018 10:06 AM CDT Pulse 56 10/30/2018 10:06 AM CDT Temperature 36 ??C (96.8 ??F) 10/30/2018 10:06 AM CDT Respiratory Rate 16 10/30/2018 10:06 AM CDT Oxygen Saturation 98% 10/30/2018 10:06 AM CDT Inhaled Oxygen Concentration - - Weight 86.6 kg (191 lb) 10/30/2018 10:06 AM CDT Height - - Body Mass Index 36.09 05/15/2018 10:19 AM FOUNDRY WORKER GENERAL documented in this encounter Patient Instructions * Patient Instructions* Pepper Morgan MD - 10/30/2018 10:20 AM CDT Orders for AMS STAFF to arrange 1. LDL, chemistry panel before annual visit 6 months Screening mammogram if she will be interested DEXA bone density will be due before the annual = menopause 2. 2-4 week follow-up with FRANCIS YORK for blood pressure re-evaluation with the home monitor Patient Care Team: Pepper Morgan MD as PCP - General Pepper Morgan MD as PCP - [facility] Attributed PCP Hank Garibay MD as Surgeon (Orthopedic Surgery) Jacky Murry MD (Ophthalmology) Return in about 6 months (around 05/02/2019) for Annual physical, Recheck. Orders Placed This Encounter Procedures ??? Cholesterol, LDL, direct ??? Comprehensive metabolic panel A brief review of all your problems, medications, and orders from today ICD-9-CM ICD-10-CM 1. Benign hypertension 401.1 I10 felodipine (PLENDIL) 5 mg 24 hr tablet propranolol (INDERAL) 20 mg tablet indapamide (LOZOL) 1.25 mg tablet Cholesterol, LDL, direct Comprehensive metabolic panel DISCONTINUED: felodipine (PLENDIL) 5 mg 24 hr tablet 2. Transient insomnia 307.41 F51.02 traZODone (DESYREL) 50 mg tablet 3. Restless legs syndrome 333.94 G25.81 pramipexole (MIRAPEX) 0.125 mg tablet 4. Hereditary essential tremor 333.1 G25.0 propranolol (INDERAL) 20 mg tablet 5. Iliotibial band syndrome, left leg 728.89 M76.32 For your records I have provided this immunization report Immunization History Administered Date(s) Administered ??? Influenza, Quadrivalent, Split, Intramuscular 03/28/2016, 04/04/2017 ??? Influenza, Split 05/18/2012 ??? Influenza, Trivalent, High Dose, Split, Preservative Free, Intramuscular 03/13/2018 ??? Influenza, Trivalent, Intramuscular 04/17/2015 ??? Influenza, Unspecified 03/13/2018 ??? Pneumococcal Conjugate PCV 13 02/18/2015 ??? Pneumococcal Polysaccharide PPV23 05/17/2002, 04/26/2016 ??? Tdap 05/18/2011 Primary Pharmacy/DME suppliers: [facility] [address] [place] [address] [place] [address] [place] [address] [place] [address] PLEASE BRING IN ALL PILL BOTTLES TO EVERY OFFICE VISIT, THIS IS ESSENTIAL FOR ACCURATE REFILLS AND MAINTAINING AN ACCURATE MEDICATION LIST. PLEASE SIGN UP FOR MaggyT so that you may have access to your labs and chart documentation, received direct messages from me regarding her lab results and contact me directly with a message or request for appointment, IF YOU HAVE TROUBLE WITH THIS PROCESS CALL [phone] High blood pressure Blood pressure is extremely high today 210/88 requiring new medicines and a follow-up in a month with your home meter Hypertension monitoring and non medication treatments Use [...] and 30 min of challenging exercise daily Iliotibial band syndrome Begin YinYoga 30-60 minutes daily This is available for free online, classes by Tiffany are very good for upper back and shoulder, classes by Jack Castelan are excellent for lower back , ITB and hamstrings. documented in this encounter Ordered Prescriptions Prescription Sig Dispense Quantity Refills Last Filled Start Date End Date indapamide (LOZOL) 1.25 mg tabletIndications: Benign hypertension Take 1 tablet (1.25 mg total) by mouth daily 30 tablet 1 10/30/2018 9 traZODone (DESYREL) 50 mg tabletIndications: Transient insomnia Take 1 tablet (50 mg total) by mouth nightly as needed for sleep 30 tablet 5 10/30/2018 9 propranolol (INDERAL) 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: Benign hypertension,Hered itary essential tremor Take 1 tablet (20 mg total) by mouth 2 (two) times a day 180 tablet 2 10/30/2018 9 felodipine (PLENDIL) 5 mg 24 hr tabletIndications: Benign hypertension Take 1 tablet (5 mg total) by mouth daily 90 tablet 1 10/30/2018 9 pramipexole (MIRAPEX) 0.125 mg tabletIndications: Restless legs syndrome Take 1-2 tablets by mouth every day 180 tablet 2 10/30/2018 9 documented in this encounter Progress Notes * Pepper Morgan MD - 10/30/2018 10:20 AM CDT ASSESSMENT AND PLAN Patient Instructions Orders for AMS STAFF to arrange 1. LDL, chemistry panel before annual visit 6 months Screening mammogram if she will be interested DEXA bone density will be due before the annual = menopause 2. 2-4 week follow-up with FRANCIS YORK for blood pressure re-evaluation with the home monitor Patient Care Team: Pepper Morgan MD as PCP - General Pepper Morgan MD as PCP - [facility] Attributed PCP Hank Garibay MD as Surgeon (Orthopedic Surgery) Jacky Murry MD (Ophthalmology) Return in about 6 months (around 05/02/2019) for Annual physical, Recheck. Orders Placed This Encounter Procedures ??? Cholesterol, LDL, direct ??? Comprehensive metabolic panel A brief review of all your problems, medications, and orders from today ICD-9-CM ICD-10-CM 1. Benign hypertension 401.1 I10 felodipine (PLENDIL) 5 mg 24 hr tablet propranolol (INDERAL) 20 mg tablet indapamide (LOZOL) 1.25 mg tablet Cholesterol, LDL, direct Comprehensive metabolic panel DISCONTINUED: felodipine (PLENDIL) 5 mg 24 hr tablet 2. Transient insomnia 307.41 F51.02 traZODone (DESYREL) 50 mg tablet 3. Restless legs syndrome 333.94 G25.81 pramipexole (MIRAPEX) 0.125 mg tablet 4. Hereditary essential tremor 333.1 G25.0 propranolol (INDERAL) 20 mg tablet 5. Iliotibial band syndrome, left leg 728.89 M76.32 For your records I have provided this immunization report Immunization History Administered Date(s) Administered ??? Influenza, Quadrivalent, Split, Intramuscular 03/28/2016, 04/04/2017 ??? Influenza, Split 05/18/2012 ??? Influenza, Trivalent, High Dose, Split, Preservative Free, Intramuscular 03/13/2018 ??? Influenza, Trivalent, Intramuscular 04/17/2015 ??? Influenza, Unspecified 03/13/2018 ??? Pneumococcal Conjugate PCV 13 02/18/2015 ??? Pneumococcal Polysaccharide PPV23 05/17/2002, 04/26/2016 ??? Tdap 05/18/2011 Primary Pharmacy/DME suppliers: [id number] [address] [place] [address] PLEASE BRING IN ALL PILL BOTTLES TO EVERY OFFICE VISIT, THIS IS ESSENTIAL FOR ACCURATE REFILLS AND MAINTAINING AN ACCURATE MEDICATION LIST. PLEASE SIGN UP FOR MyCHART so that you may have access to your labs and chart documentation, received direct messages from me regarding her lab results and contact me directly with a message or request for appointment, IF YOU HAVE TROUBLE WITH THIS PROCESS CALL [phone] High blood pressure Blood pressure is extremely high today 210/88 requiring new medicines and a follow-up in a month with your home meter Hypertension monitoring and non medication treatments Use [...] and 30 min of challenging exercise daily Iliotibial band syndrome Begin YinYoga 30-60 minutes daily This is available for free online, classes by Tiffany are very good for upper back and shoulder, classes by Jack Castelan are excellent for lower back , ITB and hamstrings. CHIEF COMPLAINT Follow-up (6 month) HISTORY OF PRESENT ILLNESS Tess Benedict returns today for her SIX-MONTH follow-up to review Chronic medical problems and discuss her concerns, Review new orders, and Update Medication Refill Management. Important details of this conversation, exam, and plan for care are summarized at the top and bottom of this comprehensive note for the readers quick access to the information. ORDERS FROM LAST VISIT 05/01/2018 1. Print SHINGRIX 2. Nurse visit for blood pressure monitor cross check, blood pressure much too high in office need to make sure the home monitor is accurate DETAILS REGARDING THIS VISIT: Tess reports feeling very well : 1. . Benign hypertension Blood pressure not well controlled extremely high after rest in the office at T10 over 88 needing more medications. Will simplify her regimen switching Filodipine to 5 mg in the morning Continuing onher Inderal for her tremor and adding an Lozol she will have to have a follow-up with home blood pressure monitor and she will change her diet to decrease sodium intake. She is already started exercise class thus that lifestyle intervention is been initiated. 3. Transient insomnia Trazodone all use on occasion refilled for half tablet at night as needed 4. Restless legs syndrome Mirapex very low-dose is working well taken at 5:00 p.m. Usually only needs 1 tablet 5. Hereditary essential tremor Familial tremor much worse in the men in her family she has a very mild case responding well to herpropranolol twice daily but it is not holding her blood pressure, refills are given without change 6. Iliotibial band syndrome, left leg Left leg pain is iliotibial band by exam and stretching is taught information sheet chair SOCIAL HISTORY Social History Tobacco Use ??? Smoking status: Former Smoker ??? Smokeless tobacco: Never Used Substance Use Topics ??? Alcohol use: Not Currently REVIEW OF SYSTEMS Review of Systems Constitutional: Positive for activity change (Joint activity class at her condo), appetite change (eating out and salt in the food that she is eating out) and unexpected weight change. Negative for fatigue and fever. HENT: Negative for congestion, dental problem, hearing loss, postnasal drip, sinus pressure, sore throat and trouble swallowing. Eyes: Negative for pain and visual disturbance. Respiratory: Negative for cough, chest tightness, shortness of breath and wheezing. Cardiovascular: Negative for chest pain and palpitations. Gastrointestinal: Negative for abdominal distention, abdominal pain, blood in stool, constipation, diarrhea and nausea. Endocrine: Negative for cold intolerance, heat intolerance and polyuria. Genitourinary: Negative for difficulty urinating, dysuria, flank pain, frequency, hematuria, menstrual problem, pelvic pain and vaginal discharge. Musculoskeletal: Positive for arthralgias ( left hip radiating down the left leg), back pain and gait problem. Negative for joint swelling and myalgias. Skin: Negative for color change and rash. Allergic/Immunologic: Negative for environmental allergies. Neurological: Negative for dizziness, weakness and headaches. Hematological: Negative for adenopathy. Does not bruise/bleed easily. Psychiatric/Behavioral: Negative for behavioral problems and sleep disturbance. The patient is not nervous/anxious. MEDICATIONS CHANGED / CLEANED UP THIS VISIT Medications Discontinued During This Encounter Medication Reason ??? felodipine (PLENDIL) 2.5 mg 24 hr tablet ??? pramipexole (MIRAPEX) 0.125 mg tablet Reorder ??? felodipine (PLENDIL) 5 mg 24 hr tablet Reorder ??? propranolol (INDERAL) 20 mg tablet Reorder ??? traZODone (DESYREL) 50 mg tablet Reorder MEDICATION LIST AT CONCLUSION OF THIS VISIT Current Outpatient Medications Ordered in [facility] Medication Sig Dispense Refill ??? aspirin 81 mg tablet Take 81 mg by mouth daily. ??? famotidine-Ca carb-mag hydrox (PEPCID COMPLETE) 10-800-165 mg chewable tablet Take 1 tablet by mouth daily as needed for heartburn. ??? felodipine (PLENDIL) 5 mg 24 hr tablet Take 1 tablet (5 mg total) by mouth daily 90 tablet 1 ??? indapamide (LOZOL) 1.25 mg tablet Take 1 tablet (1.25 mg total) by mouth daily 30 tablet 1 ??? pramipexole (MIRAPEX) 0.125 mg tablet Take 1-2 tablets by mouth every day 180 tablet 2 ??? propranolol (INDERAL) 20 mg tablet Take 1 tablet (20 mg total) by mouth 2 (two) times a day 180tablet 2 ??? traZODone (DESYREL) 50 mg tablet Take 1 tablet (50 mg total) by mouth nightly as needed for sleep 30 tablet 5 No current [facility]-ordered facility-administered medications on file. ALLERGIES is allergic to celecoxib; sulfa (sulfonamide antibiotics); lisinopril; amlodipine; and scopolamine. PHYSICAL EXAM body mass index is 36.09 kg/m??. weight is 86.6 kg (191 lb). Her tympanic temperature is 36 ??C (96.8 ??F). Her blood pressure is 154/94 and her pulse is 56. Her respiration is 16 and oxygen saturation is 98%. Physical Exam Constitutional: She is oriented to person, place, and time. She appears well- developed and well-nourished. No distress. HENT: Head: Normocephalic. Right Ear: External ear normal. Left Ear: External ear normal. Nose: Nose normal. Mouth/Throat: Oropharynx is clear and moist. Eyes: Pupils are equal, round, and reactive to light. Conjunctivae and EOM are normal. No scleral icterus. Neck: Normal range of motion. No thyromegaly present. Cardiovascular: Normal rate, regular rhythm and normal heart sounds. Pulmonary/Chest: Effort normal and breath sounds normal. Abdominal: Soft. Bowel sounds are normal. She exhibits no mass. There is no tenderness. No hernia. Musculoskeletal: Normal range of motion. She exhibits tenderness (Tight left ITB band reproduced onexamination talk stretching) and deformity ( arthritis both knees, atrophy left arm unchanged from baseline previous surgery). She exhibits no edema. For normal range of motion flexion-extension lumbar spine, the right knee is much more arthritic than the left Lymphadenopathy: She has no cervical adenopathy. Neurological: She is alert and oriented to person, place, and time. No cranial nerve deficit. She exhibits normal muscle tone. Coordination normal. Skin: Skin is warm and dry. No rash noted. No erythema. Psychiatric: She has a normal mood and affect. Her behavior is normal. Thought content normal. Vitals reviewed. Follow-up examination was completed today and specifics [...] BLOOD WORK REVIEWED WITH Tess Benedict TODAY No visits with results within 12 Month(s) from this visit. Latest known visit with results is: Lab on 03/07/2017 Component Date Value Ref Range Status ??? Erythrocyte sedimentation rate 03/07/2017 10 0 - 35 mm/hr Final ? ? C-RP 03/07/2017 2.0 <=10.0 mg/L Final ??? WBC 03/07/2017 7.09 3.80 - 9.80 K/cumm Final ??? RBC 03/07/2017 4.74 3.90 - 5.00 M/cumm Final ??? Hgb 03/07/2017 13.2 12.1 - 15.1 g/dL Final ??? Hct 03/07/2017 40.8 36.1 - 44.3 % Final ??? MCV 03/07/2017 86.1 80.0 - 100.0 fL Final ??? MCH 03/07/2017 27.8 26.7 - 33.7 pg Final ??? MCHC 03/07/2017 32.4* 32.7 - 36.0 g/dL Final ??? RDW CV 03/07/2017 13.9 11.5 - 14.6 % Final ??? RDW SD 03/07/2017 43.8 38.0 - 56.6 fL Final ??? Plt 03/07/2017 307 140 - 440 K/cumm Final ??? MPV 03/07/2017 9.2 8.0 - 12.0 fL Final ??? NRBC 03/07/2017 0.0 0.0 - 0.0 % Final ??? NRBC Abs 03/07/2017 0.00 0.00 - 0.00 K/cumm Final Pepper Morgan M.D. documented in this encounter Plan of Treatment Not on file documented as of this encounter Results * Comprehensive metabolic panel (03/18/2019 9:15 AM CDT) Sodium 138 135 - 145 mmol/L [facility] Potassium, pl 4.5 3.3 - 4.9 mmol/L [facility] Chloride 97 97 - 110 mmol/L [facility] CO2 29 22 - 32 mmol/L [facility] Anion gap 12 2 - 15 mmol/L [facility] BUN 16 8 - 25 mg/dL [facility] Creatinine 0.71 0.60 - 1.10 mg/dL [facility] Glucose 96 70 - 199 mg/dL [facility] Comment: [...] LAB BLOOD ORDERABLES Final Result [facility] [address] [place] [address] * Cholesterol, LDL, direct (03/18/2019 9:15 AM CDT) LDL Cholesterol, Direct 101 <=129 mg/dL [facility] Comment: Interpretive Data [...] MD LAB BLOOD ORDERABLES Final Result [facility] [address] [place] [address] documented in this encounter Visit Diagnoses Diagnosis Benign hypertension- Primary Essential hypertension, benign Transient insomnia Insomnia, unspecified Restless legs syndrome Restless legs syndrome (RLS) Hereditary essential tremor Essential and other specified forms of tremor Iliotibial band syndrome, left leg documented in this encounter Discontinued Medications Medication Sig Discontinue Reason Start Date End Da te felodipine (PLENDIL) 2.5 mg 24 hr tabletIndications:Benign hypertension Take 1 tablet (2.5 mg total) by mouth 2 (two) times a day. 05/01/2018 10/30/2018 pramipexole (MIRAPEX) 0.125 mg tabletIndications:Restles s leg Take 1-2 tablets by mouth every day Reorder 05/01/2018 10/30/2018 felodipine (PLENDIL) 5 mg 24 hr tabletIndications:Benign hypertension Take 1 tablet (5 mg total) by mouth daily Reorder 10/30/2018 10/30/2018 propranolol (INDERAL) 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:Benign hypertension Take 1 tablet (20 mg total) by mouth 2 (two) times a day. Reorder 05/01/2018 10/30/2018 traZODone (DESYREL) 50 mg tablet Take 1 tablet (50 mg total) by mouth nightly as needed for sleep Reorder 10/16/2018 10/30/2018 documented as of this encounter Historical Medications * This list may reflect changes made after this encounter. felodipine (PLENDIL) 5 mg 24 hr tabletIndications: Benign hypertension Take 1 tablet (5 mg total) by mouth daily 90 tablet 1 10/30/2018 10/30/2018 added in this encounter Care Teams Automatic Packer Operator Relationship Specialty Start Date End Date Pepper Morgan MD PCP - General 09/16/16 Hank Garibay MD [address] [facility] [address] [place] [address] Surgeon Orthopedic Surgery 03/27/17 Jacky Murry MD [address] [place] [address] [address] [place] [address] Ophthalmology 03/27/17 documented as of this encounter
--- OUTSIDE RECORDS SUMMARY | 2024-06-18 19:03 | XMS_ITS | Encounter Summary ---
Author Organization [facility] Address [address] [place] [address] Phone Care Team Providers Care Respiratory Therapy Director Name Role Phone Pepper Morgan MD Primary Care Provider + [phone] Hank Garibay MD Unavailable [phone] Jacky Murry MD Unavailable [phone] Encounter Details Date Type Department Care Team (Late st Contact Info) Description 10/10/2017 Telephone [facility] [address] [place] [address] Pepper Morgan MD [address] [place] [address] Social History Tobacco Use Types Packs/Day Years Used Date Smoking Tobacco: Former Smokeless Tobacco: Never Alcohol Use Standard Drinks/Week Comments Yes 0 (1 standard drink = 0.6 oz pur e alcohol) Comments No Sex and Gender Information Value Date Recorded Sex Assigned at Not on file 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 Patient verbalized understanding. * Telephone Encounter - Pepper Morgan MD - 10/10/2017 8:57 PM CDT Thank you for the call back, the heart monitor looked great. She may continue on the propranolol twice daily * Telephone Encounter - Berkley Maria - 10/10/2017 9:50 AM CDT Contacted patient and she notified me that she saw Dr. Pepper Morgan last week for follow visit after holter monitor came off, then Dr said to hold the propranolol for 2 days and Then resume propranolol on day 3. Patient did exactly what the Dr said but wanted the Dr to know that she was extremely shakey for the 2 days without the propranolol and didn't like that and then once she started back on the propranolol on day 3, she was much better. No issues at all. Also patient said that she has been monitoring her heart rate since last week and it has be running in the upper 50s.. To MD for update and advise Thank you very much * Telephone Encounter - Eri Owens - 10/10/2017 9:36 AM CDT Pt stopped the Propranolol for two days and she was shaking horribly and then she went back on it and she feels much better. nash pearson n#[phone] patient documented in this encounter Plan of Treatment Not on file documented as of this encounter Visit Diagnoses Not on filedocumented in this encounter Care Teams Respiratory Therapy Director Relationship Specialty Start Date End Date Pepper Morgan MD PCP - General 09/16/16 Hank Garibay MD [address] [place] [address] [address] [place] [address] Surgeon Orthopedic Surgery 03/27/17 Jacky Murry MD [address] [place] [address] [address] [place] [address] Ophthalmology 03/27/17 documented as of this encounter
--- OUTSIDE RECORDS SUMMARY | 2024-06-18 19:03 | XMS_ITS | Encounter Summary ---
Author Organization [facility] Medical Group Address [address] [facility] [address] [place] [address] Care Team Providers Care Wood Engraver Name Role Phone Pepper Morgan MD Primary Care Provider [phone] Hank Garibay MD Unavailable [phone] Jacky Murry MD Unavailable [phone] Reason for Visit * Reason Onset Date Comments Lab Results 03/12/2019 Encounter Details Date Type Department Care Team (Late st Contact Info) Description 03/12/2019 Telephone [facility] [address] [place] [phone] Lillian Jones NP [address] [address] Lab Results Social History Tobacco Use Types Packs/Day Years Used Date Smoking Tobacco: Former Smokeless Tobacco: Never Alcohol Use Standard Drinks/Week Comments Not Currently 0 (1 standard drink = 0.6 oz pur e alcohol) Comments No Sex and Gender Information Value Date Recorded Sex Assigned at Not on file 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 Spoke to pt about information in DLR's note: - Labs look good - Sodium level is low and she needs to STOP indapamide. Instructed to monitor BP daily with a goal of < 140/90 - Pt will come for lab work next Monday and has an appointment with DLR on Monday at 8:30 pm. Lab ordered. - Instructed to call office if abdominal pain recurs. Instructed not to restart CBD oil. Pt said she will call back if abdominal pain recurs. Pt verbalized understanding of the conversation * Telephone Encounter - Lillian Jones NP - 03/12/2019 8:22 AM CDT Notify her labs show no infection, kidney liver function is good. However her Sodium level is very low (130). She needs to stop her indapamide (BP med can cause this). Need to monitor home BP daily (goals <140/90). Repeat BMP in 6 days and f/u appt in 7 days to review findings. IF she has recurrence of abdominal pain she needs to contact office - will need to have a KUB (she had no pain yesterday). Dr. RANGEL agreed this could have been secondary to the CBD oil upsetting stomach - so do not restart this. documented in this encounter Plan of Treatment Not on file documented as of this encounter Visit Diagnoses Diagnosis Hyponatremia- Primary Hyposmolality and/or hyponatremia documented in this encounter Care Teams Wood Engraver Relationship Specialty Start Date End Date Pepper Morgan MD PCP - General 09/16/16 Hank Garibay MD [address] [place] [address] [address] [place] [address] Surgeon Orthopedic Surgery 03/27/17 Jacky Murry MD [address] [facility] [address] [address] Ophthalmology 03/27/17 documented as of this encounter
--- OUTSIDE RECORDS SUMMARY | 2024-06-18 19:03 | XMS_ITS | Encounter Summary ---
Author Organization [facility] Medical Group Address [address] [facility] [address] [place] [address] Care Team Providers Care Collar Baster Name Role Phone Pepper Morgan MD Primary Care Provider + [phone] Hank Garibay MD Unavailable [phone] Jacky Murry MD Unavailable [phone] Encounter Details Date Type Department Care Team (Late st Contact Info) Description 08/13/2018 Telephone [facility] [address] [place] [address] Pepper Morgan MD [address] [place] [address] Social History Tobacco Use Types Packs/Day Years Used Date Smoking Tobacco: Former Smokeless Tobacco: Never Alcohol Use Standard Drinks/Week Comments Yes 0 (1 standard drink = 0.6 oz pur e alcohol) Comments No Sex and Gender Information Value Date Recorded Sex Assigned at Not on file 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 30 tablet 08/13/2018 9 documented in this encounter Miscellaneous Notes * Telephone Encounter - Sadia Webster MA - 08/13/2018 12:19 PM CST Medication sent OR ANALYSIS SPECIALIST * Telephone Encounter - Eri Owens - 08/13/2018 9:08 AM CST nash melania Pt needs a refill on Trazodone 50 mg Pt is out. OR ANALYSIS SPECIALIST documented in this encounter Plan of Treatment Not on file documented as of this encounter Visit Diagnoses Not on filedocumented in this encounter Discontinued Medications Medication Sig Discontinue Reason Start Date End Da te traZODone (DESYREL) 50 mg tablet Take 1 tablet (50 mg total) by mouth nightly as needed for sleep. Reorder 05/07/2018 08/13/2018 documented as of this encounter Care Teams Collar Baster Relationship Specialty Start Date End Date Pepper Morgan MD PCP - General 09/16/16 Hank Garibay MD [address] [facility] [address] [place] [address] Surgeon Orthopedic Surgery 03/27/17 Jacky Murry MD [address] [facility] [address] [place] [address] Ophthalmology 03/27/17 documented as of this encounter
--- OUTSIDE RECORDS SUMMARY | 2024-06-18 19:03 | XMS_ITS | Encounter Summary ---
Author Organization [facility] Facility Care Team Providers Care Laboratory Clerk Name Role Phone Pepper Morgan MD Primary Care Provider + [phone] Hank Garibay MD Unavailable [phone] Jacky Murry MD Unavailable [phone] Encounter Details Date Type Department Care Team (Latest Contact Info) Description 10/30/2018 Travel Social History Tobacco Use Types Packs/Day Years Used Date Smoking Tobacco: Former Smokeless Tobacco: Never Alcohol Use Standard Drinks/Week Comments Not Currently 0 (1 standard drink = 0.6 oz pur e alcohol) Comments No Sex and Gender Information Value Date Recorded Sex Assigned at Not on file 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 Gender Identity Not on file Sexual Orientation Not on file Occupation Industry Job Start Date Job End Date retired Not on file Not on file Not on file documented as of this encounter Plan of Treatment Not on file documented as of this encounter Visit Diagnoses Not on filedocumented in this encounter Care Teams Laboratory Clerk Relationship Specialty Start Date End Date Pepper Morgan MD PCP - General 09/16/16 Hank Garibay MD [address] [place] [address] [address] [address] Surgeon Orthopedic Surgery 03/27/17 Jacky Murry MD [address] [facility] [address] [place] [address] Ophthalmology 03/27/17 documented as of this encounter
--- OUTSIDE RECORDS SUMMARY | 2024-06-18 19:03 | XMS_ITS | Encounter Summary ---
Author Organization [facility] Facility Care Team Providers Care Foreign Clerk Name Role Phone Pepper Morgan MD Primary Care Provider + [phone] Hank Garibay MD Unavailable [phone] Jacky Murry MD Unavailable [phone] Encounter Details Date Type Department Care Team (Latest Contact Info) Description 03/11/2019 Travel Social History Tobacco Use Types Packs/Day Years Used Date Smoking Tobacco: Former Smokeless Tobacco: Never Alcohol Use Standard Drinks/Week Comments Not Currently 0 (1 standard drink = 0.6 oz pur e alcohol) Comments No Sex and Gender Information Value Date Recorded Sex Assigned at Not on file 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 Gender Identity Not on file Sexual Orientation Not on file Occupation Industry Job Start Date Job End Date retired Not on file Not on file Not on file documented as of this encounter Plan of Treatment Not on file documented as of this encounter Visit Diagnoses Not on filedocumented in this encounter Care Teams Foreign Clerk Relationship Specialty Start Date End Date Pepper Morgan MD PCP - General 09/16/16 Hank Garibay MD [address] [place] [address] [address] [address] Surgeon Orthopedic Surgery 03/27/17 Jacky Murry MD [address] [facility] [address] [place] [address] Ophthalmology 03/27/17 documented as of this encounter
--- OUTSIDE RECORDS SUMMARY | 2024-06-18 19:03 | XMS_ITS | Encounter Summary ---
Author Organization [facility] Medical Group Address [address] [facility] [address] [place] [address] Care Team Providers Care Track Leader Name Role Phone Pepper Morgan MD Primary Care Provider [phone] Hank Garibay MD Unavailable [phone] Jacky Murry MD Unavailable [phone] Reason for Visit * Reason Comments Abdominal Pain Encounter Details Date Type Department Care Team (Late st Contact Info) Description 03/11/2019 8:30 AM CDT Office Visit [facility] [address] [place] [id number] Lillian Jones NP [address] [address] Epigastric pain (Primary Dx); Chronic GERD Social History Tobacco Use Types Packs/Day Years Used Date Smoking Tobacco: Former Smokeless Tobacco: Never Alcohol Use Standard Drinks/Week Comments Not Currently 0 (1 standard drink = 0.6 oz pur e alcohol) Comments No Sex and Gender Information Value Date Recorded Sex Assigned at Not on file 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 Gender Identity Not on file Sexual Orientation Not on file Occupation Industry Job Start Date Job End Date retired Not on file Not on file Not on file documented as of this encounter Last Filed Vital Signs Vital Sign Reading Time Taken Comments Blood Pressure 122/70 03/11/2019 8:23 AM CDT Pulse 74 03/11/2019 8:23 AM CDT Temperature 36.2 ??C (97.2 ??F) 03/11/2019 8:23 AM CD T Respiratory Rate 16 03/11/2019 8:23 AM CDT Oxygen Saturation 94% 03/11/2019 8:23 AM CDT Inhaled Oxygen Concentration - - Weight 87.5 kg (193 lb) 03/11/2019 8:23 AM CDT Height 154.9 cm (5' 1 ) 03/11/2019 8:23 AM CDT Body Mass Index 36.47 03/11/2019 8:23 AM CDT documented in this encounter Patient Instructions * Patient Instructions* Lillian Jones NP - 03/11/2019 8:30 AM CDT Return in 2 months (on 05/14/2019) for Annual physical with Dr. RANGEL. ORDERS TO STAFF: CBC, CMP, Amylase, Lipase - dx abdominal pain Continue to monitor for pain. Continue off the CBD oil - this may have irritated your stomach lining. Continue Pepcid complete each night to keep pains decreased. BRATS Diet advancing every 3 days towards a healthy regular eating: Home made Clear liquids = 1 Liter of water + 1/2 tsp table salt + 1/2 tsp baking soda + 4 TBSP sugar. BRATS diet = Bananas, Rice, Applesauce, [place], egg-Beaters or Soft boiled eggs -- I prefer you avoid the fatty yolks. For protein, eat egg- Beaters cooked in the microwave without fat, you may have lean lunchmeat, or lean grilled chicken breast. Drink only clear liquids for the next week = if the liquid is clear you would be able to see newsprint through a clear glass containing this liquid. Avoid milk, alcohol, and caffeine. If fevers, chills, worsening abdominal pain contact office. documented in this encounter Progress Notes * Lillian Jones NP - 03/11/2019 8:30 AM CDT Images from the original note were not included. Subjective/Objective Patient ID: Tess Benedict is a 83 y.o. female presenting in office today with chief complaint of stomach pain. Vitals: 03/11/19 0823 BP: 122/70 Pulse: 74 Resp: 16 Temp: 36.2 ??C (97.2 ??F) SpO2: 94% Weight: 87.5 kg (193 lb) Height: 154.9 cm (5' 1 ) Chief Complaint Abdominal Pain She had stomach pain for a little over a week just under her sternum. She states the pain completely resolved yesterday and has not returned. 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 She is concerned that the mesh may becausing problems. She has never had any issues with this in the past. She takes pepcid complete chew each night for gerd symptoms and this has controlled her symptoms for a very long time. She has been going to a chiropractor for her arthritis pains and began a CBD oral tincture for her pain approximately 1 week ago. She was unsure if this was also causing the discomfort. She stopped taking the tincture 2 days ago. She also took a laxative and prune juice a few days ago and had a large amount of stool removed. She states she felt slightly better after this. She had a regular soft BM today. She has been watching her dietary choices, choosing more bland foods to avoid flaring up her reflux. She has been eating cottage cheese and drinking milk to try to settle her stomach. She has not taken any additional OTC medications, except restarting a probiotic in the past few days. Denies fevers, chills, SOB, coughing, chest pain, arm pain, dizziness, N/V/D, reflux symptoms, urinary symptoms, hematuria, flank pain, hematochezia, radicular pain, numbness, extremity edema, changein diet. She is requesting labs to be completed today. Review of Systems Constitutional: Negative for chills, diaphoresis, fatigue and fever. HENT: Negative for trouble swallowing. Respiratory: Negative for cough. Cardiovascular: Negative for chest pain, palpitations and leg swelling. Gastrointestinal: Positive for abdominal pain (under the sternum). Negative for abdominal distention, anal bleeding, blood in stool, constipation, diarrhea, nausea, rectal pain and vomiting. Genitourinary: Negative for decreased urine volume, dysuria, frequency, hematuria, pelvic pain, urgency and vaginal pain. Skin: Negative for pallor. Neurological: Negative for dizziness. Psychiatric/Behavioral: Negative for confusion. Physical Exam Constitutional: She is oriented to person, place, and time. She appears well- developed. She appearsill. No distress. HENT: Head: Normocephalic. Eyes: Pupils are equal, round, and reactive to light. EOM are normal. Neck: Normal range of motion. Neck supple. Cardiovascular: Normal rate, regular rhythm, normal heart sounds and intact distal pulses. Pulmonary/Chest: Effort normal and breath sounds normal. Abdominal: Soft. Normal appearance and bowel sounds are normal. She exhibits no distension, no fluid wave, no ascites and no mass. There is no hepatosplenomegaly. There is no tenderness ( no discomfort reported on deep palpation of the entire abdomen). There is no rigidity, no rebound, no guarding and no CVA tenderness. No hernia. Musculoskeletal: She exhibits no edema. Neurological: She is alert and oriented to person, place, and time. Skin: Skin is warm and dry. Capillary refill takes less than 2 seconds. She is not diaphoretic. Psychiatric: She has a normal mood and affect. Her behavior is normal. Judgment and thought contentnormal. Assessment/Plan Diagnoses and all orders for this visit: Epigastric pain (R10.13) (Primary) - CBC with auto differential; Future - Comprehensive metabolic panel; Future - Amylase; Future - Lipase; Future Chronic GERD (K21.9) - CBC with auto differential; Future - Comprehensive metabolic panel; Future - Amylase; Future - Lipase; Future labs today per patient request- will call with results. Continue to monitor for pain. Continue off the CBD oil - this may have irritated your stomach lining. Continue Pepcid complete each night to keep pains decreased. BRATS Diet advancing every 3 days towards a healthy regular eating: Home made Clear liquids = 1 Liter of water + 1/2 tsp table salt + 1/2 tsp baking soda + 4 TBSP sugar. BRATS diet = Bananas, Rice, Applesauce, [place], egg-Beaters or Soft boiled eggs -- I prefer you avoid the fatty yolks. For protein, eat egg- Beaters cooked in the microwave without fat, you may have lean lunchmeat, or lean grilled chicken breast. Drink only clear liquids for the next week = if the liquid is clear you would be able to see newsprint through a clear glass containing this liquid. Avoid milk, alcohol, and caffeine. If fevers, chills, worsening abdominal pain contact office. Lillian Jones NP Cosigned by Pepper Morgan MD at 03/11/2019 8:46 PM CDT documented in this encounter Plan of Treatment Not on file documented as of this encounter Results * Lipase (03/11/2019 2:25 PM CDT) Lipase 61 10 - 99 Units/L [facility] Blood specimen (specimen) 03/11/2019 2:25 PM CDT 03/11/2019 2:25 PM CDT us Lillian Jones NP LAB BLOOD ORDERABLES Final Result [facility] [address] [place] [address] * Amylase (03/11/2019 2:25 PM CDT) Amylase 68 30 - 99 Units/L [facility] Blood specimen (specimen) 03/11/2019 2:25 PM CDT 03/11/2019 2:25 PM CDT Lillian Jones NP LAB [place]LO[place] [address] [place] [address] * (ABNORMAL) Comprehensive metabolic panel (03/11/2019 2:25 [...] PM CDT 03/11/2019 2:25 PM CDT Lillian Jones NP LAB BLOOD ORDERABLES Final Result Performing Organization Address [facility] de Phone Number [facility] [address] [place] [address] * CBC with auto differential (03/11/2019 2:24 PM CDT) WBC 9.1 3.8 - 9.9 K/cumm [facility] Hgb 13.4 11.9 - 15.5 g/dL [facility] Hct 41.3 35.6 - 45.5 % [facility] Plt 357 150 - 400 K/cumm [facility] MPV 9.7 9.1 - 12.3 fL [facility] RBC 4.76 3.90 - 5.20 M/cumm [facility] MCV 86.8 81.3 - 96.4 fL [facility] MCH 28.2 27.1 - 33.3 pg [facility] MCHC 32.4 32.3 - 35.7 g/dL [facility] RDW CV 13.6 11.1 - 14.9 % [facility] RDW SD 43.5 35.7 - 48.1 fL [facility] NRBC abs 0.00 0.00 - 0.01 K/cumm [facility] Blood specimen (specimen) 03/11/2019 2:24 PM CDT 03/11/2019 2:24 PM CDT Lillian Jones NP LAB BLOOD ORDERABLES Final Result Performing Organization Address [facility] Co de Phone Number [facility] [address] [place] [address] documented in this encounter Visit Diagnoses Diagnosis Epigastric pain- Primary Abdominal pain, epigastric Chronic GERD documented in this encounter Discontinued Medications Medication Sig Discontinue Reason Start Date End Da te traZODone (DESYREL) 50 mg tabletIndications:Transi ent insomnia Take 1 tablet (50 mg total) by mouth nightly as needed for sleep Side effects 10/30/2018 03/11/2019 documented as of this encounter Care Teams Track Leader Relationship Specialty Start Date End Date Pepper Morgan MD PCP - General 09/16/16 Hank Garibay MD [address] [facility] [address] [place] [address] Surgeon Orthopedic Surgery 03/27/17 Jacky Murry MD [address] [place] [address] [address] [place] [address] Ophthalmology 03/27/17 documented as of this encounter
--- OUTSIDE RECORDS SUMMARY | 2024-06-18 19:03 | XMS_ITS | Encounter Summary ---
Author Organization [facility] Medical Group Address [address] [facility] [address] [place] [address] Care Team Providers Care Sprayer Insecticide Name Role Phone Pepper Morgan MD Primary Care Provider + [phone] Hank Garibay MD Unavailable [phone] Jacky Murry MD Unavailable [phone] Encounter Details Date Type Department Care Team (Late st Contact Info) Description 03/11/2019 9:20 AM CDT [facility] [address] [place] [phone] History of basal cell carcinoma (BCC); Insomnia, persistent Social History Tobacco Use Types Packs/Day Years Used Date Smoking Tobacco: Former Smokeless Tobacco: Never Alcohol Use Standard Drinks/Week Comments Not Currently 0 (1 standard drink = 0.6 oz pur e alcohol) Comments No Sex and Gender Information Value Date Recorded Sex Assigned at Not on file 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 Gender Identity Not on file Sexual Orientation Not on file Occupation Industry Job Start Date Job End Date retired Not on file Not on file Not on file documented as of this encounter Plan of Treatment Not on file documented as of this encounter Visit Diagnoses Diagnosis History of basal cell carcinoma (BCC) Insomnia, persistent documented in this encounter Care Teams Sprayer Insecticide Relationship Specialty Start Date End Date Pepper Morgan MD PCP - General 09/16/16 Hank Garibay MD [address] [facility] [address] [place] [address] Surgeon Orthopedic Surgery 03/27/17 Jacky Murry MD [address] [facility] [address] [place] [address] Ophthalmology 03/27/17 documented as of this encounter
--- OUTSIDE RECORDS SUMMARY | 2024-06-18 19:03 | XMS_ITS | Encounter Summary ---
[facility] Address [address] [place] [address] Phone Care Team Providers Care Labor Contract Analyst Name Role Phone Pepper Pelaez MD Primary Care Provider [phone] Hank Garibay MD Unavailable [phone] Jacky Murry MD Unavailable Reason for Referral * Cardiology (Routine) - Closed Specialty Diagnoses / Procedures Referred By Olga t Referred To Contact Diagnoses Benign hypertension Dizziness Procedures 24 HR Holter Monitor Pepper Pelaez MD Phone: tel: fax: [address] [address] Referral ID Status Reason Start Date Expiration Date Visits Re quested Visits Authorized [id number] Closed 10/03/2017 04/01/2018 1 1 Reason for Visit * Reason Comments Follow-up 6 month Encounter Details Date Type Department Care Team (Late st Contact Info) Description 10/03/2017 9:00 AM CDT Office Visit [facility] [address] [place] [address] Pepper Pelaez MD [address] [place] [id number] Chronic pain disorder (Primary Dx); Benign hypertension; Restless legs syndrome; Hereditary essential tremor; Dizziness Social History Tobacco Use Types Packs/Day Years Used Date Smoking Tobacco: Former Smokeless Tobacco: Never Alcohol Use Standard Drinks/Week Comments Yes 0 (1 standard drink = 0.6 oz pur e alcohol) Comments No Sex and Gender Information Value Date Recorded Sex Assigned at Not on file Legal 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[employer] Gender Identity Not on file Sexual Orientation Not on file Occupation Industry Job Start Date Job End Date retired Not on file Not on file Not on file documented as of this encounter Last Filed Vital Signs Vital Sign Reading Time Taken Comments Blood Pressure 158/84 10/03/2017 10:00 AM CDT Pulse 60 10/03/2017 10:00 AM CDT Temperature 35.9 ??C (96.6 ??F) 10/03/2017 9:38 AM CD T Respiratory Rate 16 10/03/2017 9:38 AM CDT Oxygen Saturation - - Inhaled Oxygen Concentration - - Weight 83.5 kg (184 lb) 10/03/2017 9:38 AM CDT Height - - Body Mass Index 34.77 05/08/2017 11:25 AM 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 Set up 24 hr Holter monitor through [facility] Patient Care Team: Pepper Pelaez MD as PCP - General Pepper Pelaez MD as PCP - [facility] Attributed PCP Hank Garibay MD as Surgeon (Orthopedic Surgery) Jacky Murry MD (Ophthalmology) Return in about 6 months (around 04/04/2018) for Annual physical, Recheck. Orders Placed This Encounter Procedures ??? 24 HR Holter Monitor ??? ECG 12 lead A brief review of all your problems, medications, and orders from today Problem List Items Addressed This Visit Hereditary essential tremor (Chronic) Relevant Medications pramipexole (MIRAPEX) 0.125 mg tablet Benign hypertension (Chronic) Relevant Medications felodipine (PLENDIL) 2.5 mg 24 hr tablet Other Relevant Orders ECG 12 lead (Completed) 24 HR Holter Monitor Restless legs syndrome (Chronic) Chronic pain disorder - Primary (Chronic) Dizziness Relevant Medications meclizine (ANTIVERT) 25 mg tablet Other Relevant Orders ECG 12 lead (Completed) 24 HR Holter Monitor For your records I have provided this immunization report Immunization History Administered Date(s) Administered ??? Influenza Split 05/18/2012 ??? Influenza TIV (IM) 04/17/2015 ??? Influenza, Quadrivalent, Split, Im 03/28/2016, 04/04/2017 ??? Pneumococcal Conjugate 13-Valent (PREVNAR) 02/18/2015 ??? Pneumococcal Polysaccharide 23-Valent (PNEUMOVAX) 05/17/2002, 04/26/2016 ??? Tdap 05/18/2011 REFILLS OF YOUR MEDICATIONS I am hoping the following refill procedures will keep your medication list accurate and safe plus reduce any frustration with the refill process. PLEASE BRING IN ALL PILL BOTTLES TO EVERY OFFICE VISIT. I have authorized refills of your medication to cover your Rx needs until your problem needs to be reviewed at an office visit again. Refills were sent electronically by [facility] to your pharmacy today to PUT ON FILE . Please CALL AND TALK TO YOUR PHARMACY TEAM when you need your next refill. The pharmacy will not automatically fill this prescription today and they will not call you about this prescription at any time in the future. YOU ARE IN CHARGE of calling the pharmacy when you are ready to refill your medicines. Talk to a person: NOT A COMPUTER. Do not type your prescription number into a telephone prompted refill request. Your last RX # WILL NOT BE LINKED TO ANY of your NEW REFILLS. Please call and talk to your pharmacy team when you need your next refill. You must tell the pharmacy personnel --NOT A COMPUTER-- the name of the medicine you need refilled. Here is a quick reminder list prioritizing the main points from our discussion today. These issues require your attention: Dizziness is likely related to the very slow pulse We will do 24 hr Holter monitor and I have a review the results with the financial auditor to see if youqualify for a pacemaker. Do the Holter monitor why you are taking the propranolol 20 mg twice daily. When you are done with a Holter monitor try 2 days off of the propranolol. I know that the tremor will be much worse off of this medication but I do want to know if the dizziness is better when you are not taking the propranolol. 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 Follow the information sheet and do the Nadira maneuver for the left ear 3-4 times daily until the symptoms resolve. Meclizine 25 mg 1/2 to 1 tablet up to 3 times daily can also help with this type ofdizziness. documented in this encounter Ordered Prescriptions Prescription Sig Dispense Quantity Refills Last Filled Start Date End Date meclizine (ANTIVERT) 25 mg tabletIndications: Dizziness Take 1 tablet (25 mg total) by mouth 3 (three) times a day as needed for dizziness. 90 tablet 2 10/03/2017 9 pramipexole (MIRAPEX) 0.125 mg tabletIndications: Hereditary essential tremor Take 1-2 tablets by mouth every day 120 tablet 1 10/03/2017 8 felodipine (PLENDIL) 2.5 mg 24 hr tabletIndications: Benign hypertension Take 1 tablet (2.5 mg total) by mouth 2 (two) times a day. 180 tablet 1 10/03/2017 8 documented in this encounter Progress Notes * Pepper Pelaez MD - 10/03/2017 9:00 AM CDT ASSESSMENT AND PLAN Patient Instructions Orders for AMS STAFF to arrange 1. Set up 24 hr Holter monitor through [facility] Patient Care Team: Pepper Pealez MD as PCP - General Pepper Pelaez MD as PCP - [facility] Attributed PCP Hank Garibay MD as Surgeon (Orthopedic Surgery) Jacky Murry MD (Ophthalmology) Return in about 6 months (around 04/04/2018) for Annual physical, Recheck. Orders Placed This Encounter Procedures ??? 24 HR Holter Monitor ??? ECG 12 lead A brief review of all your problems, medications, and orders from today Problem List Items Addressed This Visit Hereditary essential tremor (Chronic) Relevant Medications pramipexole (MIRAPEX) 0.125 mg tablet Benign hypertension (Chronic) Relevant Medications felodipine (PLENDIL) 2.5 mg 24 hr tablet Other Relevant Orders ECG 12 lead (Completed) 24 HR Holter Monitor Restless legs syndrome (Chronic) Chronic pain disorder - Primary (Chronic) Dizziness Relevant Medications meclizine (ANTIVERT) 25 mg tablet Other Relevant Orders ECG 12 lead (Completed) 24 HR Holter Monitor For your records I have provided this immunization report Immunization History Administered Date(s) Administered ??? Influenza Split 05/18/2012 ??? Influenza TIV (IM) 04/17/2015 ??? Influenza, Quadrivalent, Split, Im 03/28/2016, 04/04/2017 ??? Pneumococcal Conjugate 13-Valent (PREVNAR) 02/18/2015 ??? Pneumococcal Polysaccharide 23-Valent (PNEUMOVAX) 05/17/2002, 04/26/2016 ??? Tdap 05/18/2011 REFILLS OF YOUR MEDICATIONS I am hoping the following refill procedures will keep your medication list accurate and safe plus reduce any frustration with the refill process. PLEASE BRING IN ALL PILL BOTTLES TO EVERY OFFICE VISIT. I have authorized refills of your medication to cover your Rx needs until your problem needs to be reviewed at an office visit again. Refills were sent electronically by [facility] to your pharmacy today to PUT ON FILE . Please CALL AND TALK TO YOUR PHARMACY TEAM when you need your next refill. The pharmacy will not automatically fill this prescription today and they will not call you about this prescription at any time in the future. YOU ARE IN CHARGE of calling the pharmacy when you are ready to refill your medicines. Talk to a person: NOT A COMPUTER. Do not type your prescription number into a telephone prompted refill request. Your last RX # WILL NOT BE LINKED TO ANY of your NEW REFILLS. Please call and talk to your pharmacy team when you need your next refill. You must tell the pharmacy personnel --NOT A COMPUTER-- the name of the medicine you need refilled. Here is a quick reminder list prioritizing the main points from our discussion today. These issues require your attention: Dizziness is likely related to the very slow pulse We will do 24 hr Holter monitor and I have a review the results with the financial auditor to see if youqualify for a pacemaker. Do the Holter monitor why you are taking the propranolol 20 mg twice daily. When you are done with a Holter monitor try 2 days off of the propranolol. I know that the tremor will be much worse off of this medication but I do want to know if the dizziness is better when you are not taking the propranolol. 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 Follow the information sheet and do the Nadira maneuver for the left ear 3-4 times daily until the symptoms resolve. Meclizine 25 mg 1/2 to 1 tablet up to 3 times daily can also help with this type ofdizziness CHIEF COMPLAINT Follow-up (6 month) HISTORY OF PRESENT ILLNESS TESS KOO returns today for her Six-month follow-up to review Chronic medical problems and discuss her concerns, Review new orders, and Update Medication Refill Management. Important details of this conversation, exam, and plan for care are summarized at the top and bottom of this comprehensive note for the readers quick access to the information. History details: 1. Dizziness Developed a couple of weeks ago response to the Antivert that she takes at night but she believes this causes her to be tired 2. Slow pulse--this problem is now progressed to very slow pulse that may be aggravating her dizziness. Monitoring is recommended. She would prefer to stay on the propranolol 20 mg twice daily as it is the only medication that controls her severe tremor. The tremor interferes with her ability to function care for self when she is not on the medication 3. Chronic pain disorder Very happy with her pain response to Dr. Clyde jaimes in her ankle, the Cymbalta did not work and she stopped many months ago 2. Benign hypertension The blood pressure very well controlled on Plendil propranolol combination 3. Restless legs syndrome Tolerating her Mirapex usually only requiring 1 tablet daily 4. Hereditary essential tremor Tremors been treated for years with propranolol, nothing else has worked including the inability totolerate my sling. SOCIAL HISTORY Social History Substance Use Topics ??? Smoking status: Former Smoker ??? Smokeless tobacco: Never Used ??? Alcohol use Yes REVIEW OF SYSTEMS Review of Systems Constitutional: [...] and vaginal discharge. Musculoskeletal: Negative for arthralgias, joint swelling and myalgias. Skin: Negative for color change and rash. Allergic/Immunologic: Negative for environmental allergies. Neurological: Positive for dizziness and tremors. Negative for weakness and headaches. Hematological: Negative for adenopathy. Does not bruise/bleed easily. Psychiatric/Behavioral: Negative for behavioral problems and sleep disturbance. The patient is not nervous/anxious. MEDICATIONS CHANGED / CLEANED UP THIS VISIT Medications Discontinued During This Encounter Medication Reason ??? DULoxetine DR (CYMBALTA) 20 mg capsule Therapy completed ??? felodipine (PLENDIL) 2.5 mg 24 hr tablet Reorder ??? pramipexole (MIRAPEX) 0.125 mg tablet Reorder MEDICATION LIST AT CONCLUSION OF THIS VISIT Current Outpatient Prescriptions Ordered in [employer] Medication Sig Dispense Refill ??? aspirin 81 mg tablet Take 81 mg by mouth daily. ??? famotidine-Ca carb-mag hydrox (PEPCID COMPLETE) 10-800-165 mg chewable tablet Take 1 tablet by mouth daily as needed for heartburn. ??? felodipine (PLENDIL) 2.5 mg 24 hr tablet Take 1 tablet (2.5 mg total) by mouth 2 (two) times a day. 180 tablet 1 ??? meclizine (ANTIVERT) 25 mg tablet Take 1 tablet (25 mg total) by mouth 3 (three) times a day asneeded for dizziness. 90 tablet 2 ??? pramipexole (MIRAPEX) 0.125 mg tablet Take 1-2 tablets by mouth every day 120 tablet 1 ??? propranolol (INDERAL) 20 mg tablet Take 1 tablet (20 mg total) by mouth 2 (two) times a day. 180 tablet 1 No current [facility]-ordered facility-administered medications on file. ALLERGIES is allergic to celecoxib; sulfa (sulfonamide antibiotics); lisinopril; amlodipine; and scopolamine. PHYSICAL EXAM body mass index is 34.77 kg/m??. weight is 83.5 kg (184 lb). Her tympanic temperature is 35.9 ??C (96.6 ??F) (abnormal). Her blood pressure is 158/84 and her pulse is 60. Her respiration is 16. Physical Exam Constitutional: She is oriented to person, place, and time. She appears well- developed and well-nourished. No distress. Blood pressure 128/77 standing after rest pulse is very slow at 40 HENT: Head: Normocephalic. Right Ear: External ear normal. Left Ear: External ear normal. Nose: Nose normal. Mouth/Throat: Oropharynx is clear and moist. Eyes: Conjunctivae and EOM are normal. Pupils are equal, round, and reactive to light. No scleral icterus. Neck: Normal range of motion. No thyromegaly present. Cardiovascular: Normal rate, regular rhythm and normal heart sounds. Pulmonary/Chest: Effort normal and breath sounds normal. Abdominal: Soft. Bowel sounds are normal. She exhibits no mass. There is no tenderness. No hernia. Musculoskeletal: Normal range of motion. 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 She exhibits no edema or tenderness. Lymphadenopathy: She has no cervical adenopathy. Neurological: She is alert and oriented to person, place, and time. She displays normal reflexes. Acranial nerve deficit (nystagmus left side Nadira maneuver only) and sensory deficit ( left arm sensory deficit from previous cancer surgery unchanged from baseline) is present. She exhibits abnormal muscle tone (Fine tremor of the outstretched hand right is little worse than left). Coordination normal. Skin: Skin is warm and dry. No rash noted. No erythema. Psychiatric: She has a normal mood and affect. Her behavior is normal. Thought content normal. Vitals reviewed. LABS Hospital Outpatient Visit on 03/07/2017 Component Date Value ??? Neutrophils 03/07/2017 58.5 ??? Immature granulocytes 03/07/2017 0.7 ??? Lymphocytes 03/07/2017 26.0 ??? Monocytes 03/07/2017 8.6 ??? Eosinophils 03/07/2017 5.4 ??? Basophils 03/07/2017 0.8 ??? Neutrophil absolute 03/07/2017 4.15 ??? Immature granulocyte abs* 03/07/2017 0.05 ??? Lymphocytes absolute 03/07/2017 1.84 ??? Monocyte absolute 03/07/2017 0.61 ??? Eosinophils absolute 03/07/2017 0.38 ??? Basophils, abs 03/07/2017 0.06 Lab on 03/07/2017 Component Date Value ??? Erythrocyte sedimentatio* 03/07/2017 10 ??? C-RP 03/07/2017 2.0 ??? WBC 03/07/2017 7.09 ??? RBC 03/07/2017 4.74 ??? Hgb 03/07/2017 13.2 ??? Hct 03/07/2017 40.8 ??? MCV 03/07/2017 86.1 ??? MCH 03/07/2017 27.8 ??? MCHC 03/07/2017 32.4* ??? RDW CV 03/07/2017 13.9 ??? RDW SD 03/07/2017 43.8 ??? Platelets 03/07/2017 307 ??? MPV 03/07/2017 9.2 ??? NRBC 03/07/2017 0.0 ??? NRBC Abs 03/07/2017 0.00 Admission on 02/09/2017, Discharged on 02/17/2017 Component Date Value ??? Sodium 02/12/2017 134* ??? Potassium, pl 02/12/2017 4.0 ??? Chloride 02/12/2017 93* ??? CO2 02/12/2017 31 ??? Anion Gap 02/12/2017 10 ??? Glucose 02/12/2017 102 ??? BUN 02/12/2017 17.8 ??? Creatinine 02/12/2017 0.47* ??? Calcium 02/12/2017 9.0 ??? BUN/creat ratio 02/12/2017 38* ? ? GFR 02/12/2017 >60 ??? WBC 02/14/2017 8.00 ??? RBC 02/14/2017 3.86* ??? Hgb 02/14/2017 10.9* ??? Hct 02/14/2017 32.5* ??? MCV 02/14/2017 84.2 ??? MCH 02/14/2017 28.2 ??? MCHC 02/14/2017 33.5 ??? RDW CV 02/14/2017 14.3 ??? Platelets 02/14/2017 304 ??? MPV 02/14/2017 9.2 ??? NRBC 02/14/2017 0.0 ??? NRBC Abs 02/14/2017 0.00 ??? Neutrophils 02/14/2017 64.2 ??? Immature granulocytes 02/14/2017 1.8* ??? Lymphocytes 02/14/2017 14.6 ??? Monocytes 02/14/2017 12.3* ??? Eosinophils 02/14/2017 6.5* ??? Basophils 02/14/2017 0.6 ??? Neutrophil absolute 02/14/2017 5.14 ??? Immature granulocyte abs* 02/14/2017 0.14 ??? Lymphocytes absolute 02/14/2017 1.17 ??? Monocyte absolute 02/14/2017 0.98 ??? Eosinophils absolute 02/14/2017 0.52 ??? Basophils, abs 02/14/2017 0.05 ??? Sodium 02/14/2017 138 ??? Potassium, pl 02/14/2017 3.8 ??? Chloride 02/14/2017 98 ??? CO2 02/14/2017 31 ??? Anion Gap 02/14/2017 9 ??? Glucose 02/14/2017 98 ??? BUN 02/14/2017 17.1 ??? Creatinine 02/14/2017 0.55* ??? BUN/creat ratio 02/14/2017 31* ??? Calcium 02/14/2017 8.7 ??? Phosphorus, pl 02/14/2017 3.2 ??? Albumin 02/14/2017 2.7* ? ? GFR 02/14/2017 >60 Admission on 02/07/2017, Discharged on 02/09/2017 Component Date Value ??? Color, ur 02/07/2017 Yellow ??? Clarity, ur 02/07/2017 Clear ??? Specific gravity, ur 02/07/2017 1.007 ??? pH, ur 02/07/2017 7.0 ??? Protein, ur 02/07/2017 Negative ??? Glucose, ur 02/07/2017 Negative ??? Ketones, ur 02/07/2017 Negative ??? Bilirubin, ur 02/07/2017 Negative ??? Blood, ur 02/07/2017 Negative ??? Urobilinogen, ur 02/07/2017 0.2 ??? Nitrites, ur 02/07/2017 Negative ??? Leukocyte esterase, ur 02/07/2017 Trace* ??? RBC, ur 02/07/2017 2-5* ??? WBC, ur 02/07/2017 0-2 ??? Bacteria, ur 02/07/2017 Negative ??? Hyaline casts 02/07/2017 Not Seen ??? Epithelial cells, ur 02/07/2017 0-2 ??? WBC 02/08/2017 12.36* ??? RBC 02/08/2017 4.52 ??? Hgb 02/08/2017 12.6 ??? Hct 02/08/2017 39.1 ??? MCV 02/08/2017 86.5 ??? MCH 02/08/2017 27.9 ??? MCHC 02/08/2017 32.2* ??? RDW CV 02/08/2017 14.1 ??? Platelets 02/08/2017 232 ??? MPV 02/08/2017 9.5 ??? NRBC 02/08/2017 0.0 ??? NRBC Abs 02/08/2017 0.00 ??? Neutrophils 02/08/2017 89.4* ??? Immature granulocytes 02/08/2017 0.4 ??? Lymphocytes 02/08/2017 5.5* ??? Monocytes 02/08/2017 4.4 ??? Eosinophils 02/08/2017 0.1 ??? Basophils 02/08/2017 0.2 ??? Neutrophil absolute 02/08/2017 11.05* ??? Immature granulocyte abs* 02/08/2017 0.05 ??? Lymphocytes absolute 02/08/2017 0.68 ??? Monocyte absolute 02/08/2017 0.55 ??? Eosinophils absolute 02/08/2017 0.01 ??? Basophils, abs 02/08/2017 0.02 ??? Sodium 02/08/2017 137 ??? Potassium, pl 02/08/2017 4.4 ??? Chloride 02/08/2017 101 ??? CO2 02/08/2017 22 ??? Anion Gap 02/08/2017 14 ??? Glucose 02/08/2017 126 ??? BUN 02/08/2017 11.7 ??? Creatinine 02/08/2017 0.52* ??? Calcium 02/08/2017 8.5* ??? BUN/creat ratio 02/08/2017 22* ? ? GFR 02/08/2017 >60 ??? Report 02/07/2017 Value:Final Report: Insignificant growth based on current clinical standards. ??? Hct 02/09/2017 36.3 ??? Hgb 02/09/2017 12.1 Hospital Outpatient Visit on 01/30/2017 Component Date Value ??? WBC 01/30/2017 8.30 ??? RBC 01/30/2017 4.92 ??? Hgb 01/30/2017 13.6 ??? Hct 01/30/2017 42.0 ??? MCV 01/30/2017 85.4 ??? MCH 01/30/2017 27.6 ??? MCHC 01/30/2017 32.4* ??? RDW CV 01/30/2017 14.1 ??? Platelets 01/30/2017 284 ??? MPV 01/30/2017 9.2 ??? NRBC 01/30/2017 0.0 ??? NRBC Abs 01/30/2017 0.00 ??? Neutrophils 01/30/2017 67.9 ??? Immature granulocytes 01/30/2017 0.7 ??? Lymphocytes 01/30/2017 19.0 ??? Monocytes 01/30/2017 7.6 ??? Eosinophils 01/30/2017 4.2 ??? Basophils 01/30/2017 0.6 ??? Neutrophil absolute 01/30/2017 5.63 ??? Immature granulocyte abs* 01/30/2017 0.06 ??? Lymphocytes absolute 01/30/2017 1.58 ??? Monocyte absolute 01/30/2017 0.63 ??? Eosinophils absolute 01/30/2017 0.35 ??? Basophils, abs 01/30/2017 0.05 ??? Color, ur 01/30/2017 Yellow ??? Clarity, ur 01/30/2017 Clear ??? Specific gravity, ur 01/30/2017 1.014 ??? pH, ur 01/30/2017 6.0 ??? Protein, ur 01/30/2017 Negative ??? Glucose, ur 01/30/2017 Negative ??? Ketones, ur 01/30/2017 Negative ??? Bilirubin, ur 01/30/2017 Negative ??? Blood, ur 01/30/2017 Negative ??? Urobilinogen, ur 01/30/2017 0.2 ??? Nitrites, ur 01/30/2017 Negative ??? Leukocyte esterase, ur 01/30/2017 Moderate* ??? RBC, ur 01/30/2017 2-5* ??? WBC, ur 01/30/2017 10-25* ??? Bacteria, ur 01/30/2017 Negative ??? Hyaline casts 01/30/2017 0-2 ??? Epithelial cells, ur 01/30/2017 2-5* ??? APTT 01/30/2017 28.4 ??? PT 01/30/2017 12.1 ??? INR 01/30/2017 1.07 ??? Sodium 01/30/2017 140 ??? Potassium, pl 01/30/2017 4.7 ??? Chloride 01/30/2017 100 ??? CO2 01/30/2017 30 ??? Anion Gap 01/30/2017 10 ??? Glucose 01/30/2017 113 ??? BUN 01/30/2017 20.2 ??? Creatinine 01/30/2017 0.61 ??? BUN/creat ratio 01/30/2017 33* ??? Calcium 01/30/2017 9.2 ??? Protein, sr 01/30/2017 6.6 ??? Albumin 01/30/2017 3.6 ??? Alk phos 01/30/2017 96 ??? ALT 01/30/2017 9 ??? AST 01/30/2017 10 ??? Bilirubin 01/30/2017 0.2 ? ? GFR 01/30/2017 >60 ??? Prealbumin 01/30/2017 19 ??? Report 01/30/2017 Value:Final Report: Insignificant growth based on current clinical standards. ??? Report 01/30/2017 Value:Final Report: Negative Orders Only on 01/17/2017 Component Date Value ??? Glucose 03/20/2017 90 ??? BUN 03/20/2017 19 ??? Creatinine 03/20/2017 0.72 ??? eGFR NON-AFR. ANGOLAN 03/20/2017 80 ??? EGFR 03/20/2017 92 ??? BUN/creat ratio 03/20/2017 NOT APPLICABLE ??? Sodium 03/20/2017 140 ??? Potassium, pl 03/20/2017 4.3 ??? Chloride 03/20/2017 103 ??? CO2 03/20/2017 29 ??? Calcium 03/20/2017 9.4 ??? Protein, sr 03/20/2017 6.4 ??? Albumin 03/20/2017 3.8 ??? Globulin 03/20/2017 2.6 ??? Alb/glob ratio 03/20/2017 1.5 ??? Bilirubin 03/20/2017 0.5 ??? Alk phos 03/20/2017 103 ??? AST 03/20/2017 9* ??? ALT (SGPT) 03/20/2017 7 ??? LDL, direct 03/20/2017 111* ICD10 CODES FROM CARE PROVIDED TODAY Follow-up examination was completed today and specifics of the testing and counseling are recorded on the AVS. Tess Koo's personal health goals were negotiated and agreed [...] with her in the After Visit Summary. ICD-9-CM ICD-10-CM 1. Chronic pain disorder 338.4 G89.4 2. Benign hypertension 401.1 I10 ECG 12 lead felodipine (PLENDIL) 2.5 mg 24 hr tablet 24 HR Holter Monitor 3. Restless legs syndrome 333.94 G25.81 4. Hereditary essential tremor 333.1 G25.0 pramipexole (MIRAPEX) 0.125 mg tablet 5. Dizziness 780.4 R42 ECG 12 lead meclizine (ANTIVERT) 25 mg tablet 24 HR Holter Monitor PATIENT CARE TEAM FOR Tess Koo Patient Care Team: Pepper Pelaez MD as PCP - General Pepper Pelaez MD as PCP - [facility] Attributed PCP Hank Garibay MD as Surgeon (Orthopedic Surgery) Jacky Murry MD (Ophthalmology) Pepper Pelaez M.D. documented in this encounter Procedure Notes * Pepper Pelaez MD - 10/03/2017 9:00 AM CDTAssociated Order(s): ECG 12-LEAD Pre-Procedure Diagnose(s): Benign hypertension; Dizziness Post-Procedure Diagnose(s): Benign hypertension; Dizziness ECG 12 lead Date/Time: 10/03/2017 7:51 PM Performed by: PEPPER PELAEZ Authorized by: PEPPER PELAEZ Rhythm: sinus bradycardia Rate: normal QRS axis: normal Clinical impression: abnormal ECG Comments: Marked sinus badycardia documented in this encounter Plan of Treatment Not on file documented as of this encounter Procedures Procedure Name Priority Date/Time Associated Diagnosis Comments ECG 12-LEAD Routine 10/03/2017 9:00 AM CDT Benign hypertension Dizziness documented in this encounter Results * 24 HR Holter Monitor (10/04/2017 8:46 AM CDT) Anatomical Region Laterality Modality Electrocardiogra phy 10/04/2017 8:43 AM CDT Narrative 10/09/2017 4:41 PM CDT [address] [place] [address] HOLTER MONITOR Patient Name: TESS KOO I : [id number] Study Date: 10/04/2017 08:43:44 Gender: ? Tech: Location: Ref.Physician: PEPPER PELAEZ Height(Cm): BSA: Weight(Kg): Order Physician: PEPPER PELAEZ Procedures: Holter Report: Holter Monitor Report. Indications: Hypertension,dizzy, and Hypertension I10. Measurements: Holter_Data Measurement ?Value ? Units ? Min Rate: ?39 ?BPM ? Min Rate Timestamp: ?09:22:57 ? Max Rate: ?107 ? BPM ? Max Rate Timestamp: ?21:16:27 ? Mean Rate: ? 53 ?BPM ? AFib (% of study): ? 11 ?percent ? AFib Peak Rate: ?90.0 ?BPM ? Singlets (PACs): ? 1004 ?events ? Couplets (PACs): ? 42 ?events ? Runs (SVT): ?22 ?events ? Singlets (PVCs): ? 3 ? events ? Couplets (PVCs): ? 0 ? events ? Runs (VT): ? 0 ? events ? Longest RR: ?1.68 ?sec ? Longest RR Timestamp: ?20:54:55 ? RRs > 2sec: ?0 ? events ? SVT Fastest Run: ? 118 ? BPM ? SVT Longest Run: ? 10 ?beats ? VT Fastest Run: ?0 ? BPM ? VT Longest Run: ?0 ? beats ? Findings: Protocol: Recording Duration (Ordered): 24 hr, 0 min. Recording Duration (Actual): 21 hr, 5 min. Recorder: H3+. Total QRS: 66346. Date Recorded: 2017-10-04 08:43:44. Date Processed: 2017-10-04 00:00:00. Events Director: ____. Application Tech: . Study Quality: Study quality is fair. Conclusions: 1. Predominant rhythm is normal sinus rhythm. 2. Heart rate and rate variability is appropriate. 3. No prolonged pauses. 4. Supraventricular tachycardia runs are present lasting 3 beats and 5 beats. They were all asymptomatic. 5. Nothing significant noted during patient's symptom. Electronically Signed By: Dr Saud Ayers 2017-10-09 16:41:50 CDT CC: CC: Procedure Note Saud Ayers MD - 10/09/[address] [place] [address] HOLTER MONITOR Patient Name: TESS KOO IPatient ID: [id number] : [id number] Date: 10/04/2017 08:43:44 Gender: ? Tech: Location: Ref.Physician: Chuyita PELAEZ(Cm): BSA: Weight(Kg): Order Physician: PEPPER PELAEZ Procedures: Holter Report: Holter Monitor Report. Indications: Hypertension,dizzy, and Hypertension I10. Measurements: Holter_Data Measurement Value Units Min Rate: 39 BPM Min Rate Timestamp: 09:22:57 Max Rate: 107 BPM Max Rate Timestamp: 21:16:27 Mean Rate: 53 BPM AFib (% of study): 11 percent AFib Peak Rate: 90.0 BPM Singlets (PACs): 1004 events Couplets (PACs): 42 events Runs (SVT): 22 events Singlets (PVCs): 3 events Couplets (PVCs): 0 events Runs (VT): 0 events Longest RR: 1.68 sec Longest RR Timestamp: 20:54:55 RRs > 2sec: 0 events SVT Fastest Run: 118 BPM SVT Longest Run: 10 beats VT Fastest Run: 0 BPM VT Longest Run: 0 beats Findings: Protocol: Recording Duration (Ordered): 24 hr, 0 min. Recording Duration (Actual): 21 hr, 5 min. Recorder: H3+. Total QRS: 14966. Date Recorded: 2017-10-04 08:43:44. Date Processed: 2017-10-04 00:00:00. Events Director: ____. Application Tech: . Study Quality: Study quality is fair. Conclusions: 1. Predominant rhythm is normal sinus rhythm. 2. Heart rate and rate variability is appropriate. 3. No prolonged pauses. 4. Supraventricular tachycardia runs are present lasting 3 beats and 5beats. They were all asymptomatic. 5. Nothing significant noted during patient's symptom. Electronically Signed By: Dr Saud Ayers 2017-10-09 16:41:50 CDT CC: CC: Pepper Pelaez MD CV CARDIAC SERVICES PROCED URES Final Result * (ABNORMAL) ECG 12-LEAD (10/03/2017 9:00 AM CDT) Narrative Pepper Pelaez MD - 10/03/2017 9:00 AM CDT Pepper Pelaez MD ? 10/03/2017 ??7:52 PM ECG 12 lead Date/Time: 10/03/2017 7:51 PM Performed by: PEPPER PELAEZ Authorized by: PEPPER PELAEZ Rhythm: sinus bradycardia Rate: normal QRS axis: normal Clinical impression: abnormal ECG Comments: Marked sinus badycardia us Pepper Pelaez MD ECG ORDERABLES Edited Res ult - Final documented in this encounter Visit Diagnoses Diagnosis Chronic pain disorder- Primary Chronic pain syndrome Benign hypertension Essential hypertension, benign Restless legs syndrome Restless legs syndrome (RLS) Hereditary essential tremor Essential and other specified forms of tremor Dizziness Dizziness and giddiness Benign hypertension Essential hypertension, benign Dizziness Dizziness and giddiness documented in this encounter Discontinued Medications Medication Sig Discontinue Reason Start Date End Da te DULoxetine DR (CYMBALTA) 20 mg capsuleIndications:Chroni c pain disorder Take 1 capsule (20 mg total) by mouth daily. Therapy completed 04/04/2017 10/03/2017 felodipine (PLENDIL) 2.5 mg 24 hr tabletIndications:Benign essential hypertension Take 1 tablet (2.5 mg total) by mouth 2 (two) times a day. Reorder 03/27/2017 10/03/2017 pramipexole (MIRAPEX) 0.125 mg tabletIndications:Heredit elmer essential tremor Take 1-2 tablets by mouth every day Reorder 03/27/2017 10/03/2017 documented as of this encounter Care Teams Labor Contract Analyst Relationship Specialty Start Date End Date Pepper Pelaez MD PCP - General 09/16/16 Hank Garibay MD [address] [facility] [address] [place] [address] Surgeon Orthopedic Surgery 03/27/17 Jacky Murry MD [address] [place] [address] [address] [place] [address] Ophthalmology 03/27/17 documented as of this encounter
--- OUTSIDE RECORDS SUMMARY | 2024-06-18 19:03 | XMS_ITS | Encounter Summary ---
Author Organization [facility] Address [address] [place] [address] Care Team Providers Care Fruit Peeler Name Role Phone Zachary Pealez MD Primary Care Provider [phone] Hank Garibay MD Unavailable [phone] Jacky Murry MD Unavailable [phone] Reason for Referral * Cardiology (Routine) - Closed Specialty Diagnoses / Procedures Referred By Olga uribe Referred To Contact Diagnoses Benign hypertension Dizziness Procedures 24 HR Holter Monitor Zachary Pelaez MD Phone: tel: fax: [address] [phone] Referral ID Status Reason Start Date Expiration Date Visits Re quested Visits Authorized [id number] Closed 10/03/2017 04/01/2018 1 1 Reason for Visit * Cardiology (Routine) - Closed Specialty Diagnoses / Procedures Referred By Olga uribe Referred To Contact Diagnoses Benign hypertension Dizziness Procedures 24 HR Holter Monitor Zachary Pelaez MD Phone: tel: fax: [address] [phone] Referral ID Status Reason Start Date Expiration Date Visits Re quested Visits Authorized [id number] Closed 10/03/2017 04/01/2018 1 1 Encounter Details Date Type Department Care Team (Late st Contact Info) Description 10/04/2017 8:22 AM CDT - 10/04/2017 11:59 PM CDT Hospital Encounter [facility] Cardiology [address] [place] [address] Zachary Pelaez MD [address] [place] [address] Benign hypertension; Dizziness Discharge Disposition: Discharge to home or self care Social History Tobacco Use Types Packs/Day Years Used Date Smoking Tobacco: Former Smokeless Tobacco: Never Alcohol Use Standard Drinks/Week Comments Yes 0 (1 standard drink = 0.6 oz pur e alcohol) Comments No Sex and Gender Information Value Date Recorded Sex Assigned at Not on file 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 90 tablet 2 10/03/2017 9 aspirin 325 mg EC tablet Take 1 tablet (325 mg total) by mouth 2 (two) times a day for 28 days. 56 tablet 02/07/2017 0 aspirin 81 mg tablet Take 81 mg by mouth daily. 9 famotidine-Ca carb-mag hydrox (PEPCID COMPLETE) 10-800-165 mg chewable tablet Take 1 tablet by mouth daily as needed for heartburn. 0 felodipine (PLENDIL) 2.5 mg 24 hr tabletIndications: Benign hypertension Take 1 tablet (2.5 mg total) by mouth 2 (two) times a day. 180 tablet 1 10/03/2017 8 pramipexole (MIRAPEX) 0.125 mg tabletIndications: Hereditary essential tremor Take 1-2 tablets by mouth every day 120 tablet 1 10/03/2017 8 propranolol (INDERAL) 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: Benign essential hypertension Take 1 tablet (20 mg total) by mouth 2 (two) times a day. 180 tablet 1 03/27/2017 8 documented as of this encounter Discharge Disposition Disposition Code Departure Means Destination Discharge to home or self care documented in this encounter Plan of Treatment Not on file documented as of this encounter Procedures Procedure Name Priority Date/Time Associated Diagnosis Comments HOLTER MONITOR 24 HR Routine 10/04/2017 8:46 AM CDT Benign hypertension Dizziness documented in this encounter Results * 24 HR Holter Monitor (10/04/2017 8:46 AM CDT) Anatomical Region Laterality Modality Electrocardiogra phy 10/04/2017 8:43 AM CDT Narrative 10/09/2017 4:41 PM CDT [address] [address] HOLTER MONITOR Patient Name: CLAUDIA KOO I : [id number] Study Date: 10/04/2017 08:43:44 Gender: ? Tech: Location: Ref.Physician: ZACHARY PELAEZ Height(Cm): BSA: Weight(Kg): Order Physician: ZACHARY PELAEZ Procedures: Holter Report: Holter Monitor Report. [...] hr, 5 min. Recorder: H3+. Total QRS: 88760. Date Recorded: 2017-10-04 08:43:44. Date Processed: 2017-10-04 00:00:00. Tuberculosis Specialist: ____. Application Tech: . Study Quality: Study [...] Procedure Note Saud Ayers MD - 10/09/[address] [address] HOLTER MONITOR Patient Name: CLAUDIA KOO IPatient ID: [id number] : [id number] Date: 10/04/2017 08:43:44 Gender: ? Tech: Location: Ref.Physician: Chuyita PELAEZ(Cm): BSA: Weight(Kg): Order Physician: ZACHARY PELAEZ Procedures: Holter Report: Holter Monitor Report. [...] hr, 5 min. Recorder: H3+. Total QRS: 88548. Date Recorded: 2017-10-04 08:43:44. Date Processed: 2017-10-04 00:00:00. Tuberculosis Specialist: ____. Application Tech: . Study Quality: Study quality is fair. Conclusions: 1. Predominant rhythm is normal sinus rhythm. 2. Heart rate and rate variability is appropriate. 3. No prolonged pauses. 4. Supraventricular tachycardia runs are present lasting 3 beats and 5beats. They were all asymptomatic. 5. Nothing significant noted during patient's symptom. Electronically Signed By: Dr Saud Ayers 2017-10-09 16:41:50 CDT CC: CC: Zachary Pelaez MD CV CARDIAC SERVICES PROCED URES Final Result documented in this encounter Visit Diagnoses Diagnosis Benign hypertension Essential hypertension, benign Dizziness Dizziness and giddiness documented in this encounter Care Teams Fruit Peeler Relationship Specialty Start Date End Date Zachary Pelaez MD PCP - General 09/16/16 Hank Garibay MD [address] [place] [address] [address] [place] [address] Surgeon Orthopedic Surgery 03/27/17 Jacky Murry MD [address] [place] [address] [address] [place] [address] Ophthalmology 03/27/17 documented as of this encounter
--- OUTSIDE RECORDS SUMMARY | 2024-06-18 19:03 | XMS_ITS | Encounter Summary ---
Author Organization [facility] Address [address] [facility] [address] [place] [address] Care Team Providers Care Pe Electrical Engineer Name Role Phone Pepper Morgan MD Primary Care Provider Hank Garibay MD Unavailable [phone] Jacky Murry MD Unavailable [phone] Reason for Visit * Reason Comments Follow-up bp Encounter Details Date Type Department Care Team (Late st Contact Info) Description 11/20/2018 9:30 AM CDT Office Visit [facility] [address] [place] [address] Lillian Jones NP [address] [address] Benign hypertension (Primary Dx); Spider veins of limb Social History Tobacco Use Types Packs/Day Years Used Date Smoking Tobacco: Former Smokeless Tobacco: Never Alcohol Use Standard Drinks/Week Comments Not Currently 0 (1 standard drink = 0.6 oz pur e alcohol) Comments No Sex and Gender Information Value Date Recorded Sex Assigned at Not on file 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 Gender Identity Not on file Sexual Orientation Not on file Occupation Industry Job Start Date Job End Date retired Not on file Not on file Not on file documented as of this encounter Last Filed Vital Signs Vital Sign Reading Time Taken Comments Blood Pressure 138/70 11/20/2018 9:30 AM CDT Pulse 53 11/20/2018 9:17 AM CDT Temperature 36.3 ??C (97.3 ??F) 11/20/2018 9:17 AM CD T Respiratory Rate 18 11/20/2018 9:17 AM CDT Oxygen Saturation 98% 11/20/2018 9:17 AM CDT Inhaled Oxygen Concentration - - Weight 86.6 kg (191 lb) 11/20/2018 9:17 AM CDT Height - - Body Mass Index 36.09 05/15/2018 10:19 AM HOSPITAL STAFF PHARMACIST documented in this encounter Patient Instructions * Patient Instructions* Lillian Jones NP - 11/20/2018 9:30 AM CDT Return in 6 months (on 05/15/2019) for Annual physical with Dr. RANGEL. CONTINUE felodipine 5mg daily CONTINUE Inderal 20mg twice daily. CONTINUE Indapamide 1.25mg daily. Use a digital home blood pressure monitor [...] and 30 min of challenging exercise daily Elevating legs when resting and wearing compression stockings documented in this encounter Progress Notes * Lillian Jones NP - 11/20/2018 9:30 AM CDT Images from the original note were not included. Subjective/Objective Patient ID: Tess Benedict is a 82 y.o. female presenting in office today for hypertension follow-up. HOME meter BP: 135/62 pulse 53 WALL BP 138/70 Home meter noted to be accurate Vitals: 11/20/18 0917 11/20/18 0930 BP: 160/80 138/70 BP Location: Right arm Patient Position: Sitting Pulse: 53 Resp: 18 Temp: 36.3 ??C (97.3 ??F) SpO2: 98% Weight: 86.6 kg (191 lb) Chief Complaint Follow-up (bp) She was seen in [facility] on 10/30/18 and instructed to increase felodipine 5mg QD, continue inderal for tremors 20mg Bid, and start Lozol 1.25mg QD. She brought home BP meter and log today. Her Bps have been ranging from 121-139/58-76, pulses 52-60. She is taking her BP every morning and often is taking it with her morning coffee. Denies headaches, recent illness, vision changes, dizziness, chest pain, palpitations, abdominal pain, extremity edema. She has also had some right lower leg vein discomfort recently. She has a spot just behind her right thigh and on her outer right lower leg that occasionally throbs and aches. She states the pain is worse when she is sitting in a regular chair with leg down on the floor. She tries to elevate her legs as much a possible when resting. Denies swelling, discoloration, warmth, recent flight or long car ride. Review of Systems Constitutional: Negative for chills, fatigue and fever. Respiratory: Negative for cough and shortness of breath. Cardiovascular: Negative for chest pain, palpitations and leg swelling. Gastrointestinal: Negative for abdominal pain, diarrhea and nausea. Skin: Negative for pallor. Veins in right leg hurting Neurological: Negative for dizziness, numbness and headaches. Physical Exam Constitutional: She is oriented to person, place, and time. She appears well- developed. No distress. HENT: Head: Normocephalic. Cardiovascular: Normal rate, regular rhythm and normal heart sounds. No murmur heard. Pulmonary/Chest: Effort normal and breath sounds normal. Musculoskeletal: She exhibits no edema. Neurological: She is alert and oriented to person, place, and time. Skin: Skin is warm and dry. Small purple spider vein x1 noted on posterior right thigh just above the knee and similar x1 on the right lateral leg. No swelling, warmth, varicosity noted. No swelling of calf or posterior knee noted. Psychiatric: She has a normal mood and affect. Her behavior is normal. Assessment/Plan Diagnoses and all orders for this visit: Benign hypertension (I10) (Primary) BP meter is accurate and she is doing well on current meds. CONTINUE felodipine 5mg daily CONTINUE Inderal 20mg twice daily. CONTINUE Indapamide 1.25mg daily. Use a digital home blood pressure monitor [...] and 30 min of challenging exercise daily Spider veins of limb (I78.1) Recommend wearing compression stockings to reduce discomfort. Elevating legs when resting. Keeping legs moving and staying active can reduce discomfort. Lillian Jones NP Cosigned by Pepper Morgan MD at 11/20/2018 6:18 PM CDT documented in this encounter Plan of Treatment Not on file documented as of this encounter Visit Diagnoses Diagnosis Benign hypertension- Primary Essential hypertension, benign Spider veins of limb documented in this encounter Care Teams Pe Electrical Engineer Relationship Specialty Start Date End Date Pepper Morgan MD PCP - General 09/16/16 Hank Garibay MD [address] [facility] [address] [place] [address] Surgeon Orthopedic Surgery 03/27/17 Jacky Murry MD [address] [place] [address] [address] [place] [address] Ophthalmology 03/27/17 documented as of this encounter
--- OUTSIDE RECORDS SUMMARY | 2024-06-18 19:03 | XMS_ITS | Encounter Summary ---
Author Organization [facility] Address [address] [facility] [address] [place] [address] Care Team Providers Care Finishing Inspector Name Role Phone Pepper Morgan MD Primary Care Provider + [phone] Hank Garibay MD Unavailable [phone] Jacky Murry MD Unavailable [phone] Encounter Details Date Type Department Care Team (Late st Contact Info) Description 03/13/2019 Telephone [facility] [address] [place] [id number] Pepper Morgan MD [address] [place] [address] Social History Tobacco Use Types Packs/Day Years Used Date Smoking Tobacco: Former Smokeless Tobacco: Never Alcohol Use Standard Drinks/Week Comments Not Currently 0 (1 standard drink = 0.6 oz pur e alcohol) Comments No Sex and Gender Information Value Date Recorded Sex Assigned at Not on file 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 KMS does not want to order any labs/x-rays until DLR examines pt. LMOM for pt [phone] informing that KMS does not want to order any labs/x-rays at this time and that she is to keep the office visit with DLR tomorrow afternoon. Also advised again to go to ER if symptoms get worse this evening. * Telephone Encounter - Charity Pinedo LPN - 03/13/2019 3:10 PM CDT Pt [phone] states zarina went to ER over weekend and Dx with Croup and treated with antibiotics and nebulizer treatments. Pt states last evening her chest felt tight so she took a Mucinex. Pt states again this morning her chest felt tight so she took another Mucinex. Pt states earlier today she had a coughing spell and was wheezing. Pt states the symptoms have eased up at the moment but is afraid it will get worse. I did inform pt that we do not have any open appointments today. However, we do have opening with our INTEGRATED MARKETING MANAGER tomorrow at 3pm. Pt did take that appointment. Advised pt to go to ER if she gets worse tonight and that I will talk to KMS in the meantime to see if she has any other orders and call her back. Pt voiced understanding. * Telephone Encounter - Eri Owens - 03/13/2019 2:20 PM CDT Patients son has been diagnosed with Croup and now she is having symptoms of shortness of breath, wheezing ,chest feels tight and coughing. Please advise [id number]#[phone] patient documented in this encounter Plan of Treatment Not on file documented as of this encounter Visit Diagnoses Not on filedocumented in this encounter Care Teams Finishing Inspector Relationship Specialty Start Date End Date Pepper Morgan MD PCP - General 09/16/16 Hank Garibay MD [address] [facility] [address] [place] [address] Surgeon Orthopedic Surgery 03/27/17 Jacky Murry MD [address] [place] [address] [address] [place] [address] Ophthalmology 03/27/17 documented as of this encounter
--- OUTSIDE RECORDS SUMMARY | 2024-06-18 19:03 | XMS_ITS | Encounter Summary ---
Author Organization [facility] Address [address] [facility] [address] [place] [address] Care Team Providers Care Police Lieutenant Patrol Name Role Phone Pepper Morgan MD Primary Care Provider + [phone] Hank aGribay MD Unavailable [phone] Jacky Murry MD Unavailable [phone] Encounter Details Date Type Department Care Team (Late st Contact Info) Description 05/04/2018 Telephone [facility] [address] [place] [phone] Pepper Morgan MD [address] [place] [address] Social History Tobacco Use Types Packs/Day Years Used Date Smoking Tobacco: Former Smokeless Tobacco: Never Alcohol Use Standard Drinks/Week Comments Yes 0 (1 standard drink = 0.6 oz pur e alcohol) Comments No Sex and Gender Information Value Date Recorded Sex Assigned at Not on file Legal Sex Female 4:33 AM ORDER ENTRY SPECIALIST Gender Identity Not on file Sexual [...] nightly as needed for sleep. 30 tablet 05/07/2018 9 documented in this encounter Miscellaneous Notes * Addendum Note - Radha Pineda LPN - 05/07/2018 8:49 AM CSTAddended by: RADHA PINEDA on: 05/07/2018 08:49 AM Modules accepted: Orders R ENTRY SPECIALIST * Telephone Encounter - Radha Pineda LPN - 05/07/2018 8:48 AM CST Tess [facility] I let her know that I sent in the Trazodone for her and if this helps her after a few nights of useto call us back and let us know so she can get refills. She voiced understanding and is aware this was sent to [facility]/john R ENTRY SPECIALIST * Telephone Encounter - Radha Pineda LPN - 05/04/2018 2:38 PM CST lmom for Tess to [facility] I called [facility] and was put on hold and had to hang up. I cannot find Trazodone anywhere in her chart. R ENTRY SPECIALIST * Telephone Encounter - Pepper Morgan MD - 05/04/2018 1:42 PM ORDER ENTRY SPECIALIST Yes she may have her trazodone, it looks like the machine may have cancel it instead of sending at the please renew that prescription R ENTRY SPECIALIST * Telephone Encounter - Lilian Casey LPN - 05/04/2018 10:02 AM ORDER ENTRY SPECIALIST To to advise; I do not see it in last pt plan R ENTRY SPECIALIST * Telephone Encounter - Darline Mcconnell MA - 05/04/2018 8:48 AM ORDER ENTRY SPECIALIST Patient said when she seen you on Monday you told her you was going to prescribe her trazodone butit is not on her med list. Please send to [facility] in [facility] [phone]. R ENTRY SPECIALIST documented in this encounter Plan of Treatment Not on file documented as of this encounter Visit Diagnoses Not on filedocumented in this encounter Care Teams Police Lieutenant Patrol Relationship Specialty Start Date End Date Pepper Morgan MD PCP - General 09/16/16 Hank Garibay MD [address] [facility] [address] [place] [address] Surgeon Orthopedic Surgery 03/27/17 Jacky Murry MD [address] [place] [address] [address] [place] [address] Ophthalmology 03/27/17 documented as of this encounter
--- OUTSIDE RECORDS SUMMARY | 2024-06-18 19:03 | XMS_ITS | Encounter Summary ---
Author Organization [facility] Address [address] [facility] [address] [place] [address] Care Team Providers Care Mixing Machine Tender Cork Gasket Name Role Phone Zachary Morgan MD Primary Care Provider [phone] Hank Garibay MD Unavailable [phone] Jacky Murry MD Unavailable [phone] Reason for Visit * Reason Comments Annual Exam Encounter Details Date Type Department Care Team (Late st Contact Info) Description 05/01/2018 8:00 AM DESIGN TECHNOLOGY PROFESSOR Office Visit [facility] [address] [place] [address] Zachary Morgan MD [address] [place] [address] Annual physical exam (Primary Dx); Obesity (BMI 30-39.9); Bariatric surgery status; History of malignant melanoma; Benign essential hypertension; Hereditary essential tremor; Benign hypertension; Slow pulse; Restless leg Social History Tobacco Use Types Packs/Day Years Used Date Smoking Tobacco: Former Smokeless Tobacco: Never Alcohol Use Standard Drinks/Week Comments Yes 0 (1 standard drink = 0.6 oz pur e alcohol) Comments No Sex and Gender Information Value Date Recorded Sex Assigned at Not on file Legal Sex Female 4:33 AM DESIGN TECHNOLOGY PROFESSOR Gender Identity Not on file Sexual Orientation Not on file Occupation Industry Job Start Date Job End Date retired Not on file Not on file Not on file documented as of this encounter Last Filed Vital Signs Vital Sign Reading Time Taken Comments Blood Pressure 170/80 05/01/2018 7:54 AM DESIGN TECHNOLOGY PROFESSOR Pulse 49 05/01/2018 7:54 AM DESIGN TECHNOLOGY PROFESSOR Temperature 35.7 ??C (96.3 ??F) 05/01/2018 7:54 AM CS T Respiratory Rate 18 05/01/2018 7:54 AM DESIGN TECHNOLOGY PROFESSOR Oxygen Saturation 96% 05/01/2018 7:54 AM DESIGN TECHNOLOGY PROFESSOR Inhaled Oxygen Concentration - - Weight 84.4 kg (186 lb) 05/01/2018 7:54 AM DESIGN TECHNOLOGY PROFESSOR Height 154.9 cm (5' 1 ) 05/01/2018 7:54 AM DESIGN TECHNOLOGY PROFESSOR Body Mass Index 35.14 05/01/2018 7:54 AM DESIGN TECHNOLOGY PROFESSOR documented in this encounter Patient Instructions * Patient Instructions* Zachary Morgan MD - 05/01/2018 8:00 AM DESIGN TECHNOLOGY PROFESSOR Orders for AMS STAFF to arrange 1. Print SHINGRIX 2. Nurse visit for blood pressure monitor cross check, blood pressure much too high in office need to make sure the home monitor is accurate Patient Care Team: Zachary Morgan MD as PCP - General Zachary Morgan MD as PCP - [facility] Attributed PCP Hank Garibay MD as Surgeon (Orthopedic Surgery) Jacky Murry MD (Ophthalmology) Return in about 6 months (around 10/29/2018) for Recheck. Orders Placed This Encounter Procedures ??? ECG 12 lead A brief review of all your problems, medications, and orders from today Problem List Items Addressed This Visit Hereditary essential tremor (Chronic) Relevant Medications pramipexole (MIRAPEX) 0.125 mg tablet Benign hypertension (Chronic) Relevant Medications propranolol (INDERAL) 20 mg tablet felodipine (PLENDIL) 2.5 mg 24 hr tablet Other Relevant Orders ECG 12 lead (Completed) History of malignant melanoma (Chronic) Bariatric surgery status Obesity (BMI 30-39.9) Other Visit Diagnoses Annual physical exam - Primary Benign essential hypertension (Chronic) Relevant Medications propranolol (INDERAL) 20 mg tablet felodipine (PLENDIL) 2.5 mg 24 hr tablet Slow pulse Relevant Orders ECG 12 lead (Completed) Restless leg Relevant Medications pramipexole (MIRAPEX) 0.125 mg tablet For your records I have provided this immunization report Immunization History Administered Date(s) Administered ??? Influenza, Quadrivalent, Split, Intramuscular 03/28/2016, 04/04/2017 ??? Influenza, Split 05/18/2012 ??? Influenza, Trivalent, Intramuscular 04/17/2015 ??? Influenza, Unspecified 03/13/2018 ??? Pneumococcal Conjugate 13-Valent (PREVNAR) 02/18/2015 ??? [...] visit again. Refills were sent electronically by [employer] to your pharmacy today to PUT ON [...] discussion today. These issues require your attention: Annual Exam finds the need for diet [...] health are documented on this information sheet. Morbid obesity = body mass index above 40, Obesity = Body mass index over 30. [place] body mass index is less than 25. Today your BMI =Body mass index is Body mass index is 35.14 kg/m??. I encourage 30 minutes of challenging exercise every morning Consider Weight Watchers for weight reduction of 1 pound weekly GN TECHNOLOGY PROFESSOR GN TECHNOLOGY PROFESSOR GN TECHNOLOGY PROFESSOR GN TECHNOLOGY PROFESSOR GN TECHNOLOGY PROFESSOR GN TECHNOLOGY PROFESSOR GN TECHNOLOGY PROFESSOR documented in this encounter Ordered Prescriptions Prescription Sig Dispense Quantity Refills Last Filled Start Date End Date pramipexole (MIRAPEX) 0.125 mg tabletIndications: Restless leg Take 1-2 tablets by mouth every day 180 tablet 2 05/01/2018 9 varicella-zoster [id number], PF, (SHINGRIX, PF,) 50 mcg/0.5 mL vaccine Inject 0.5 mL into the muscle as instructed once for 1 dose. Give second dose 2-6 months after first dose to complete series. 0.5 mL 1 05/01/2018 8 felodipine (PLENDIL) 2.5 mg 24 hr tabletIndications: Benign hypertension Take 1 tablet (2.5 mg total) by mouth 2 (two) times a day. 180 tablet 2 05/01/2018 9 pramipexole (MIRAPEX) 0.125 mg tabletIndications: Restless leg Take 1 tablet (0.125 mg total) by mouth 2 (two) times a day. Take 1-2 tablets by mouth every day 180 tablet 2 05/01/2018 8 propranolol (INDERAL) 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: Benign hypertension Take 1 tablet (20 mg total) by mouth 2 (two) times a day. 180 tablet 2 05/01/2018 9 documented in this encounter Progress Notes * Zachary Morgan MD - 05/01/2018 8:00 AM CST Images from the original note were not included. ASSESSMENT AND PLAN Patient Instructions Orders for AMS STAFF to arrange 1. Print SHINGRIX 2. Nurse visit for blood pressure monitor cross check, blood pressure much too high in office need to make sure the home monitor is accurate Patient Care Team: Zachary Morgan MD as PCP - General Zachary Morgan MD as PCP - [facility] Attributed PCP Hank Garibay MD as Surgeon (Orthopedic Surgery) Jacky Murry MD (Ophthalmology) Return in about 6 months (around 10/29/2018) for Recheck. Orders Placed This Encounter Procedures ??? ECG 12 lead A brief review of all your problems, medications, and orders from today Problem List Items Addressed This Visit Hereditary essential tremor (Chronic) Relevant Medications pramipexole (MIRAPEX) 0.125 mg tablet Benign hypertension (Chronic) Relevant Medications propranolol (INDERAL) 20 mg tablet felodipine (PLENDIL) 2.5 mg 24 hr tablet Other Relevant Orders ECG 12 lead (Completed) History of malignant melanoma (Chronic) Bariatric surgery status Obesity (BMI 30-39.9) Other Visit Diagnoses Annual physical exam - Primary Benign essential hypertension (Chronic) Relevant Medications propranolol (INDERAL) 20 mg tablet felodipine (PLENDIL) 2.5 mg 24 hr tablet Slow pulse Relevant Orders ECG 12 lead (Completed) Restless leg Relevant Medications pramipexole (MIRAPEX) 0.125 mg tablet For your records I have provided this immunization report Immunization History Administered Date(s) Administered ??? Influenza, Quadrivalent, Split, Intramuscular 03/28/2016, 04/04/2017 ??? Influenza, Split 05/18/2012 ??? Influenza, Trivalent, Intramuscular 04/17/2015 ??? Influenza, Unspecified 03/13/2018 ??? Pneumococcal Conjugate 13-Valent (PREVNAR) 02/18/2015 ??? [...] discussion today. These issues require your attention: Annual Exam finds the need for diet [...] health are documented on this information sheet. Morbid obesity = body mass index above 40, Obesity = Body mass index over 30. [place] body mass index is less than 25. Today your BMI =Body mass index is Body mass index is 35.14 kg/m??. I encourage 30 minutes of challenging exercise every morning Consider Weight Watchers for weight reduction of 1 pound weekly CHIEF COMPLAINT Annual Exam HISTORY OF PRESENT ILLNESS Tess Benedict returns today for Annual Medicare Examination, Medication Refill Management, discussion of Chronic Medical Problems associated orders and medications as well as Her concerns detailed in this HPI and the AVS note sent home with her. Tess reports feeling well. Issues discussed today included all new lab orders for the next follow-up visit, results of currentlab work, Annual Health Maintenance Recommendations ( Documented on the separately scanned in AMS Annual Physical Exam Worksheet ) and a review of active and discontinued medication prescriptions Further historical information about problems: 1. Annual physical exam Documented on the annual information sheet 2. Obesity (BMI 30-39.9) Weight is down another 8 lb working on exercise and diet every day for further weight loss this winter 3. Bariatric surgery status Gastroplasty was done in 1983, 1st with a lap band high procedure 2nd with what sounds like a full intestinal bypass in 1992 requiring annual laboratory monitoring of liver function and vitamin levels 4. History of malignant melanoma The no physical recurrence of melanoma labs will be followed at least once yearly 5.Hereditary essential tremor Nice control tremor on the propranolol however pulses slow EKG was updated today 7. Benign hypertension Systolic blood pressure very high today however well controlled at home suspect Office hypertensionhome monitoring to be continued and meter to be brought to office follow-up, EKG updated because ofslow pulse, no medication changes made today-- similar pulse on exam September 2017 with Holter monitorconfirming acceptable pulse rate and occasional SVT 8. Restless leg Results with Mirapex usually 0.125 nightly however requires occasional extra dose, external tabletsallowed for up to 2 tablets nightly with potential side effects of these medications reviewed especially the gambling addiction issues - pramipexole (MIRAPEX) 0.125 mg tablet; Take 1 tablet (0.125 mg total) by mouth 2 (two) times a day. Take 1-2 tablets by mouth every day Dispense: 180 tablet; Refill: 2 PAST MEDICAL HISTORY Past Medical History: Diagnosis [...] Breast biopsy ??? CHOLECYSTECTOMY 1991 Cholecystectomy ??? HAND SURGERY 1975 hand surgery ??? [...] other family member. SOCIAL HISTORY Social History Social History ??? Marital status: Spouse name: N/A ??? Number of children: 3 ??? 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 Smoking status: Former Smoker ??? Smokeless tobacco: Never Used ??? Alcohol use Yes ??? Drug use: Unknown ??? Sexual activity: Not on file Other Topics Concern ??? Not on file Social History Narrative ??? No narrative on file THE REVIEW OF SYSTEMS Review [...] and vaginal discharge. Musculoskeletal: Positive for arthralgias (Left knee feels instead debility with activity, had bothknees replaced) and neck stiffness. Negative for joint swelling and myalgias. Skin: Negative for color change and rash. Allergic/Immunologic: Negative for environmental allergies. Neurological: Negative for dizziness, weakness and headaches. Hematological: Negative for adenopathy. Does not bruise/bleed easily. Psychiatric/Behavioral: Negative for behavioral problems and sleep disturbance. The patient is not nervous/anxious. MEDICATIONS CHANGED / CLEANED UP THIS VISIT Medications Discontinued During This Encounter Medication Reason ??? propranolol (INDERAL) 20 mg tablet Reorder ??? pramipexole (MIRAPEX) 0.125 mg tablet Reorder ??? felodipine (PLENDIL) 2.5 mg 24 hr tablet Reorder ??? pramipexole (MIRAPEX) 0.125 mg tablet Reorder MEDICATION LIST AT CONCLUSION OF THIS VISIT Current Outpatient Prescriptions Ordered in [facility] Medication Sig Dispense Refill ??? aspirin 81 mg tablet Take 81 mg by mouth daily. ??? famotidine-Ca carb-mag hydrox (PEPCID COMPLETE) 10-800-165 mg chewable tablet Take 1 tablet by mouth daily as needed for heartburn. ??? felodipine (PLENDIL) 2.5 mg 24 hr tablet Take 1 tablet (2.5 mg total) by mouth 2 (two) times a day. 180 tablet 2 ??? meclizine (ANTIVERT) 25 mg tablet Take 1 tablet (25 mg total) by mouth 3 (three) times a day asneeded for dizziness. 90 tablet 2 ??? pramipexole (MIRAPEX) 0.125 mg tablet Take 1-2 tablets by mouth every day 180 tablet 2 ??? propranolol (INDERAL) 20 mg tablet Take 1 tablet (20 mg total) by mouth 2 (two) times a day. 180 tablet 2 No current [facility]-ordered facility-administered medications on file. ALLERGIES is allergic to celecoxib; sulfa (sulfonamide antibiotics); lisinopril; amlodipine; and scopolamine. PHYSICAL EXAM body mass index is 35.14 kg/m??. height is 154.9 cm (5' 1 ) and weight is 84.4 kg (186 lb). Her temperature is 35.7 ??C (96.3 ??F) (abnormal). Her blood pressure is 170/80 and her pulse is 49 (abnormal). Her respiration is 18 and oxygen saturation is 96%. Physical Exam Constitutional: She is oriented to person, place, and time. She appears well- developed and well-nourished. No distress. HENT: Right Ear: External ear normal. Left Ear: External ear normal. Nose: Nose normal. Mouth/Throat: Oropharynx is clear and moist. No oropharyngeal exudate. Eyes: Pupils are equal, round, and reactive to light. Conjunctivae and EOM are normal. No scleral icterus. Neck: Neck supple. No JVD present. No thyromegaly present. Cardiovascular: Regular rhythm, normal heart sounds and intact distal pulses. The pulses slow Pulmonary/Chest: Effort normal and breath sounds normal. Abdominal: Soft. Bowel sounds are normal. She exhibits no mass. There is no splenomegaly. There is no tenderness. There is no guarding. No hernia. Genitourinary: Rectal exam shows no mass, no tenderness and guaiac negative stool. Pelvic exam was performed with patient in the knee-chest position. Uterus is not tender. Right adnexum displays no mass and no tenderness. Left adnexum displays no mass and no tenderness. Genitourinary Comments: Breast examination: Bilateral breast examination healthy without mass or axillary adenopathy Pelvic examination is decline Rectal examination without mass Musculoskeletal: Normal range of motion. 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 She exhibits noedema or tenderness. Bilateral knee replacement sites well healed with intact normal range of motion Lymphadenopathy: She has no cervical adenopathy. She has no axillary adenopathy. Right: No inguinal adenopathy present. Left: No inguinal adenopathy present. Neurological: She is alert and oriented to person, place, and time. She has normal reflexes. She displays normal reflexes. No cranial nerve deficit or sensory deficit. She exhibits normal muscle tone( no tremor noted on exam with propranolol dose this morning). Coordination normal. She displays noBabinski's sign on the right side. She displays no Babinski's sign on the left side. Skin: Skin is warm and dry. No rash noted. No erythema. Psychiatric: She has a normal mood and affect. Her behavior is normal. Thought content normal. Vitals reviewed. LABS Holter monitor September 2017 EKG today sinus rhythm with nonspecific ST-T changes No visits with results within 12 Month(s) from this visit. Latest known visit with results is: Hospital Outpatient Visit on 03/07/2017 Component Date [...] 03/07/2017 0.38 ??? Basophils, abs 03/07/2017 0.06 Comprehensive physical examination was completed today and [...] Screening-Bone Density Scan 1937 ??? Zoster Vaccines 1997 ??? Regular Well Visit/Exam 05/01/2019 ??? DTaP/Tdap/Td Vaccine (2 - Td) 05/18/2021 ? ? Pneumococcal (PCV13 & PPSV23) 65+ yrs Completed ??? Influenza Vaccine Completed WHICH IS INCOMPLETE UNTIL A SOLUTION CAN BE FOUND FOR THE 24 HR TURN AROUND UPDATE PROBLEM IN [facility]. That HEALTH MAINTENANCE REVIEW include the following [...] HEALTH MAINTENANCE TESTING DOCUMENTED WHEN POSSIBLE IN EPIC FLOW SHEETS INCLUDING:PHQ depression screening, HRA screening, cognitive evaluation with 3 ITEM RECALL( with clock draw and BARD ADL/IADL screening when appropriate), FALL RISK ASSESSMENT. Appropriate documented not available on epic are on the scanned preventive health document created today. CODING ANALYST REVIEW COMPLETED WITH administrative tasks including DME provider recommendations when Appropriate. THE PHARMACY SECTION CONTAIN primary secondary and mail order pharmacy choices selected by Tess Benedict ICD10 CODES FROM CARE PROVIDED TODAY ICD-9-CM ICD-10-CM 1. Annual physical exam V70.0 Z00.00 2. Obesity (BMI 30-39.9) 278.00 E66.9 3. Bariatric surgery status V45.86 Z98.84 4. History of malignant melanoma V10.82 Z85.820 5. Benign essential hypertension 401.1 I10 6. Hereditary essential tremor 333.1 G25.0 7. Benign hypertension 401.1 I10 propranolol (INDERAL) 20 mg tablet felodipine (PLENDIL) 2.5 mg 24 hr tablet ECG 12 lead 8. Slow pulse 427.89 I49.9 ECG 12 lead 9. Restless leg 333.94 G25.81 pramipexole (MIRAPEX) 0.125 mg tablet DISCONTINUED: pramipexole (MIRAPEX) 0.125 mg tablet PATIENT CARE TEAM FOR Tess Benedict Patient Care Team: Zachary Morgan MD as PCP - General Zachary Morgan MD as PCP - [facility] Attributed PCP Hank Garibay MD as Surgeon (Orthopedic Surgery) Jacky Murry MD (Ophthalmology) Zachary Morgan M.D. GN TECHNOLOGY PROFESSOR documented in this encounter Procedure Notes * Zachary Morgan MD - 05/01/2018 8:00 AM CSTAssociated Order(s): ECG 12-LEAD Pre-Procedure Diagnose(s): Benign hypertension; Slow pulse Post-Procedure Diagnose(s): Benign hypertension; Slow pulse ECG 12 lead Date/Time: 05/02/2018 5:31 AM Performed by: ZACHARY MORGAN Authorized by: ZACHARY MORGAN Rhythm: sinus bradycardia Rate: bradycardic QRS axis: normal Clinical impression: normal ECG Comments: Sinus bradycardia with peak T-wave anomaly and nonspecific ST changes GN TECHNOLOGY PROFESSOR documented in this encounter Plan of Treatment Not on file documented as of this encounter Procedures Procedure Name Priority Date/Time Associated Diagnosis Comments ECG 12-LEAD Routine 05/01/2018 8:00 AM DESIGN TECHNOLOGY PROFESSOR Benign hypertension Slow pulse documented in this encounter Results * ECG 12-LEAD (05/01/2018 8:00 AM DESIGN TECHNOLOGY PROFESSOR) Narrative Zachary Morgan MD - 05/01/2018 8:00 AM DESIGN TECHNOLOGY PROFESSOR Zachary Morgan MD ? 05/02/2018 ??5:32 AM ECG 12 lead Date/Time: 05/02/2018 5:31 AM Performed by: ZACHARY MORGAN Authorized by: ZACHARY MORGAN Rhythm: sinus bradycardia Rate: bradycardic QRS axis: normal Clinical impression: normal ECG Comments: ??Sinus bradycardia with peak T-wave ??anomaly and nonspecific ST changes us Zachary Morgan MD ECG ORDERABLES Edited Res ult - Final documented in this encounter Visit Diagnoses Diagnosis Annual physical exam- Primary Routine general medical examination at a health care facility Obesity (BMI 30-39.9) Bariatric surgery status History of malignant melanoma Personal history of malignant melanoma of skin Benign essential hypertension Essential hypertension, benign Hereditary essential tremor Essential and other specified forms of tremor Benign hypertension Essential hypertension, benign Slow pulse Other specified cardiac dysrhythmias Restless leg Restless legs syndrome (RLS) documented in this encounter Discontinued Medications Medication Sig Discontinue Reason Start Date End Da te propranolol (INDERAL) 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:Benign essential hypertension Take 1 tablet (20 mg total) by mouth 2 (two) times a day. Reorder 04/18/2018 05/01/2018 pramipexole (MIRAPEX) 0.125 mg tabletIndications:Heredit elmer essential tremor Take 1-2 tablets by mouth every day Reorder 10/03/2017 05/01/2018 felodipine (PLENDIL) 2.5 mg 24 hr tabletIndications:Benign hypertension Take 1 tablet (2.5 mg total) by mouth 2 (two) times a day. Reorder 04/18/2018 05/01/2018 pramipexole (MIRAPEX) 0.125 mg tabletIndications:Restles s leg Take 1 tablet (0.125 mg total) by mouth 2 (two) times a day. Take 1-2 tablets by mouth every day Reorder 05/01/2018 05/01/2018 documented as of this encounter Care Teams Mixing Machine Tender Cork Gasket Relationship Specialty Start Date End Date Zachary Morgan MD PCP - General 09/16/16 Hank Garibay MD [address] [facility] [address] [place] [address] Surgeon Orthopedic Surgery 03/27/17 Jacky Murry MD [address] [facility] [address] [place] [address] Ophthalmology 03/27/17 documented as of this encounter
--- OUTSIDE RECORDS SUMMARY | 2024-06-18 19:03 | XMS_ITS | Encounter Summary ---
Author Organization [facility] Address [address] [facility] [address] [place] [address] Care Team Providers Care Computer Forensic Examiner Name Role Phone Pepper Morgan MD Primary Care Provider Hank Garibay MD Unavailable [phone] Jacky Murry MD Unavailable [phone] Encounter Details Date Type Department Care Team (Late st Contact Info) Description 04/18/2018 Telephone [facility] [address] [place] [phone] Pepper Morgan MD [address] [place] [address] Social History Tobacco Use Types Packs/Day Years Used Date Smoking Tobacco: Former Smokeless Tobacco: Never Alcohol Use Standard Drinks/Week Comments Yes 0 (1 standard drink = 0.6 oz pur e alcohol) Comments No Sex and Gender Information Value Date Recorded Sex Assigned at Not on file Legal Sex Female 4:33 AM CORRECTIONAL PROGRAM OFFICER Gender Identity Not on file Sexual Orientation Not on file Occupation Industry Job Start Date Job End Date retired Not on file Not on file Not on file documented as of this encounter Ordered Prescriptions Prescription Sig Dispense Quantity Refills Last Filled Start Date End Date felodipine (PLENDIL) 2.5 mg 24 hr tabletIndications: Benign hypertension Take 1 tablet (2.5 mg total) by mouth 2 (two) times a day. 60 tablet 04/18/2018 05/01/2018 propranolol (INDERAL) 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: Benign essential hypertension Take 1 tablet (20 mg total) by mouth 2 (two) times a day. 60 tablet 04/18/2018 05/01/2018 documented in this encounter Miscellaneous Notes * Telephone Encounter - Lacie Alicea MA - 04/18/2018 4:49 PM CDT I will send refill of each patient has an appt. 05/01/18.dcoers kennel operator * Telephone Encounter - Vickie Esposito - 04/18/2018 4:11 PM CDT Patient is out of these medications and needs these called in tonight it is her blood pressure medication. * Telephone Encounter - Eri Owens - 04/18/2018 10:51 AM CDT nash pearson Pt needs a refill on Propranolol and Felodipine documented in this encounter Plan of Treatment Not on file documented as of this encounter Visit Diagnoses Diagnosis Benign essential hypertension Essential hypertension, benign Benign hypertension Essential hypertension, benign documented in this encounter Discontinued Medications Medication Sig Discontinue Reason Start Date End Da te propranolol (INDERAL) 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:Benign essential hypertension Take 1 tablet (20 mg total) by mouth 2 (two) times a day. Reorder 10/18/2017 04/18/2018 felodipine (PLENDIL) 2.5 mg 24 hr tabletIndications:Benign hypertension Take 1 tablet (2.5 mg total) by mouth 2 (two) times a day. Reorder 10/03/2017 04/18/2018 documented as of this encounter Care Teams Computer Forensic Examiner Relationship Specialty Start Date End Date Pepper Morgan MD PCP - General 09/16/16 Hank Garibay MD [address] [facility] [address] [place] [address] Surgeon Orthopedic Surgery 03/27/17 Jacky Murry MD [address] [facility] [address] [place] [id number] Ophthalmology 03/27/17 documented as of this encounter
--- OUTSIDE RECORDS SUMMARY | 2024-06-18 19:03 | XMS_ITS | Encounter Summary ---
Author Organization [facility] Facility Care Team Providers Care Data Entry Assistant Name Role Phone Pepper Morgan MD Primary Care Provider + [phone] Hank Garibay MD Unavailable [phone] Jacky Murry MD Unavailable [phone] Encounter Details Date Type Department Care Team (Latest Contact Info) Description 11/20/2018 Travel Social History Tobacco Use Types Packs/Day Years Used Date Smoking Tobacco: Former Smokeless Tobacco: Never Alcohol Use Standard Drinks/Week Comments Not Currently 0 (1 standard drink = 0.6 oz pur e alcohol) Comments No Sex and Gender Information Value Date Recorded Sex Assigned at Not on file 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 Gender Identity Not on file Sexual Orientation Not on file Occupation Industry Job Start Date Job End Date retired Not on file Not on file Not on file documented as of this encounter Plan of Treatment Not on file documented as of this encounter Visit Diagnoses Not on filedocumented in this encounter Care Teams Data Entry Assistant Relationship Specialty Start Date End Date Pepper Morgan MD PCP - General 09/16/16 Hank Garibay MD [address] [place] [address] [address] [address] Surgeon Orthopedic Surgery 03/27/17 Jacky Murry MD [address] [facility] [address] [place] [address] Ophthalmology 03/27/17 documented as of this encounter
--- OUTSIDE RECORDS SUMMARY | 2024-06-18 19:03 | XMS_ITS | Encounter Summary ---
Author Organization [facility] Address [address] [facility] [address] [place] [address] Care Team Providers Care Tubular Products Fabricator Name Role Phone Pepper Morgan MD Primary Care Provider + [phone] Hank Garibay MD Unavailable [phone] Jacky Murry MD Unavailable [phone] Encounter Details Date Type Department Care Team (Late st Contact Info) Description 10/30/2018 Telephone [facility] [address] [place] [phone] Pepper Morgan MD [address] [place] [address] Social History Tobacco Use Types Packs/Day Years Used Date Smoking Tobacco: Former Smokeless Tobacco: Never Alcohol Use Standard Drinks/Week Comments Not Currently 0 (1 standard drink = 0.6 oz pur e alcohol) Comments No Sex and Gender Information Value Date Recorded Sex Assigned at Not on file 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 documented in this encounter Plan of Treatment Not on file documented as of this encounter Visit Diagnoses Not on filedocumented in this encounter Care Teams Tubular Products Fabricator Relationship Specialty Start Date End Date Pepper Morgan MD PCP - General 09/16/16 Hank Garibay MD [address] [facility] [address] [place] [address] [address] Surgeon Orthopedic Surgery 03/27/17 Jacky Murry MD [address] [place] [address] [address] [place] [place] [address] Ophthalmology 03/27/17 documented as of this encounter
--- OUTSIDE RECORDS SUMMARY | 2024-06-18 19:04 | XMS_ITS | Encounter Summary ---
Author Organization [facility] Address [address] [facility] [address] [place] [address] Care Team Providers Care Coal Sampler Name Role Phone Pepper Morgan MD Primary Care Provider [phone] Melissa Hoyt RN Unavailable [phone] Franki Garibay MD Unavailable [phone] Jacky Murry MD Unavailable [phone] Puma Mckenzie MD Unavailable [phone] Reason for Referral * MRI/CAT/PET Scan (Routine) - Closed Specialty Diagnoses / Procedures Referred By Contac t Referred To Contact Radiology Diagnoses Chronic pain of left knee Arthritis of knee Procedures MRI Knee Left WO Contrast Franki Garibay MD Phone: tel: fax: [address] [address] Referral ID Status Reason Start Date Expiration Date Visits Re quested Visits Authorized [id number] Closed 01/24/2017 07/23/2017 1 1 Encounter Details Date Type Department Care Team (Late st Contact Info) Description 01/24/[address] [facility] Orthopedics and Sports Medicine [address] [facility] [address] [place] [address] Mckenzie Collins MA Chronic pain of left knee (Primary Dx); Arthritis of knee Social History Tobacco Use Types Packs/Day Years Used Date Smoking Tobacco: Former Smokeless Tobacco: Former Alcohol Use Standard Drinks/Week Comments Yes 0 (1 standard drink = 0.6 oz pur e alcohol) PHQ-2 Answer Date Recorded PHQ-2 Total Score (If total score is 3 or more points, staff should administer the PHQ-9) 0 05/26/2020 Comments Unknown Sex and Gender Information Value Date Recorded Sex Assigned at Not on file Legal Sex Female 4:33 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 MR Knee WO L HISTORY: CHRONIC PAIN. ??Persistent pain and giving out of left knee. CORRELATE IMAGING: None available. TECHNIQUE: MR imaging of the knees was acquired using sagittal and coronal proton-density weighted and triplanar PD SPAIR sequences. FINDINGS: The osseous structures of the knee are normal. ??There is no evidence of fracture, marrow edema, or osseous lesion. ??Significant tricompartment arthrosis is present which asymmetrically affects the patellofemoral compartment. ??Subchondral cystic change is present within the patella. ??Large tricompartment marginal osteophytes are present. ??A moderate joint effusion is present. ??A very small posterior joint extension is seen. ??There appear to be at least 2 intra-articular loose bodies within the knee joint, one anterior to the tibial spine and a 2nd potentially within the suprapatellar recess. There is a complex tear involving the anterior horn of the lateral meniscus. ??The medial meniscus appears grossly normal. ??The anterior and posterior cruciate ligaments are normal. ??The medial and fibular collateral ligament complexes are intact. ??The patellar extensor mechanism is normal. ??The surrounding soft tissues and muscular structures are unremarkable. IMPRESSION: ?? 1.[id number] TRICOMPARTMENT ARTHROSIS OF THE LEFT KNEE, ASYMMETRICALLY AFFECTING THE PATELLOFEMORAL COMPARTMENT. 2.O98UGVBVBXQ INTRA-ARTICULAR LOOSE BODIES WITHIN THE ANTERIOR JOINT AND SUPRAPATELLAR RECESS DESCRIBED ABOVE. 3.A22ZOGHKBJR JOINT EFFUSION. 4.Y85XZWBTVA TEAR OF THE ANTERIOR HORN OF THE LATERAL MENISCUS. Electronically signed by: Javan Daniels M.D. ? Interpreting Physician: ??DR WILLIAMS AGUILAR M.D. ??Read on: ??Jan 26 2017 ?? 3:34P Transcribed by: ??PSC ??On: Jan 26 2017 ??3:32P Approved Electronically by: ??LAUREN Mittal, DR KRAMER ??on: ??Jan 26 2017 ?? 3:32P Ordering DR: FRANKI GARIBAY Attending DR: FRANKI GARIBAY Attending: ??FRANKI GARIBAY Requesting: ??FRANKI GARIBAY Requesting Fax: ??[phone] Attending Fax: ??[phone] Attending ID: ??[id number] Requesting ID: ??[id number] Report To 1 ID: ??[id number] Report To 1 Name: ??FRANKI GARIBAY Report To 1 FAX: ??[phone] [facility] Order #: ??[id number] Procedure Note Miscellaneous, Not In File / Provider, MD Latasha - 01/26/2017 MR Knee WO L - LEFT Acc#: [id number] DATE OF EXAM: Jan 26 2017 MR Knee WO L HISTORY: CHRONIC PAIN. Persistent pain and giving out of left knee. CORRELATE IMAGING: None available. TECHNIQUE: MR imaging of the knees was acquired using sagittal and coronal proton-density weighted and triplanar PD SPAIR sequences. FINDINGS: The osseous structures of the knee are normal. There is no evidence of fracture, marrow edema, or osseous lesion. Significant tricompartment arthrosis is present which asymmetrically affects the patellofemoral compartment. Subchondral cystic change is present within the patella. Large tricompartment marginal osteophytes are present. A moderate joint effusion is present. A very small posterior joint extension is seen. There appear to be at least 2 intra-articular loose bodies within the knee joint, one anterior to the tibial spine and a 2nd potentially within the suprapatellar recess. There is a complex tear involving the anterior horn of the lateral meniscus. The medial meniscus appears grossly normal. The anterior and posterior cruciate ligaments are normal. The medial and fibular collateral ligament complexes are intact. The patellar extensor mechanism is normal. The surrounding soft tissues and muscular structures are unremarkable. IMPRESSION: 1.[id number] TRICOMPARTMENT ARTHROSIS OF THE LEFT KNEE, ASYMMETRICALLY AFFECTING THE PATELLOFEMORAL COMPARTMENT. 2.B03KWSNDAPI INTRA-ARTICULAR LOOSE BODIES WITHIN THE ANTERIOR JOINT AND SUPRAPATELLAR RECESS DESCRIBED ABOVE. 3.L57QNREZHST JOINT EFFUSION. 4.T42QNAYKYS TEAR OF THE ANTERIOR HORN OF THE LATERAL MENISCUS. Electronically signed by: Javan Daniels M.D. Interpreting Physician: DR WILLIAMS AGUILAR M.D. Read on: Jan 26 2017 3:34P Transcribed by: [facility] On: Jan 26 2017 3:32P Approved Electronically by: LAUREN Mittal, DR KRAMER on: Jan 26 2017 3:32P Ordering DR: FRANKI GARIBAY Attending DR: FRANKI GARIBAY Attending: FRANKI GARIBAY Requesting: FRANKI GARIBAY Requesting Attending Attending ID: [id number] Requesting ID: [id number] Report To 1 ID: [id number] Report To 1 Name: FRANKI GARIBAY Report To 1 FAX: [phone] [facility] Order #: [id number] us Franki Garibay MD IMG MRI PROCEDURES Final Res ult documented in this encounter Visit Diagnoses Diagnosis Chronic pain of left knee- Primary Arthritis of knee Unspecified arthropathy, lower leg Chronic pain of left knee Arthritis of knee Unspecified arthropathy, lower leg documented in this encounter Additional Health Concerns Infection Onset Date Last Indicated Resolved Time COVID: Suspected 06/01/2020 06/01/2020 06/15/2020 3:07 AM CHANNEL SPECIALIST documented as of this encounter Care Teams Coal Sampler Relationship Specialty Start Date End Date Pepper Morgan MD PCP - General 09/16/16 Melissa Hoyt, RN [address] [address] Manufacturing Job Titles 02/21/17 02/21/17 Franki Garibay MD [address] [facility] [address]ER [address] [place] [address] Surgeon Orthopedic Surgery 03/27/17 Jacky Murry MD [address] [facility] [address] [place] [address] Ophthalmology 03/27/17 Puma Mckenzie MD [address] [facility] [address] [place] [address] Surgeon Orthopedic Surgery 07/11/19 documented as of this encounter
--- OUTSIDE RECORDS SUMMARY | 2024-06-18 19:04 | XMS_ITS | Encounter Summary ---
Author Organization [facility] Address [address] [facility] [address] [place] [address] Care Team Providers Care Sports Management Professor Name Role Phone Pepper Morgan MD Primary Care Provider [phone] Encounter Details Date Type Department Care Team (Late st Contact Info) Description 01/27/2017 Telephone [facility] Orthopedics and Sports Medicine [address] [facility] [address] [place] [address] Hank Garibay MD [address] [place] [address] [address] [place] [address] Social History Tobacco Use Types Packs/Day Years Used Date Smoking Tobacco: Former Smokeless Tobacco: Former Alcohol Use Standard Drinks/Week Comments Yes 0 (1 standard drink = 0.6 oz pur e alcohol) Comments Unknown Sex and Gender Information Value Date Recorded Sex Assigned at Not on file 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 Garibay and is wanting to know what strength of compression hose she should get. She is wanting a call at [phone]. documented in this encounter Plan of Treatment Not on file documented as of this encounter Visit Diagnoses Not on filedocumented in this encounter Care Teams Sports Management Professor Relationship Specialty Start Date End Date Pepper Morgan MD PCP - General 09/16/16 documented as of this encounter
--- OUTSIDE RECORDS SUMMARY | 2024-06-18 19:04 | XMS_ITS | Encounter Summary ---
Author Organization [facility] Address [address] [address] Care Team Providers Care Rv Repair Technician Name Role Phone Pepper Morgan MD Primary Care Provider [phone] Encounter Details Date Type Department Care Team (Late st Contact Info) Description 02/23/[address] 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 documented in this encounter Plan of Treatment Not on file documented as of this encounter Visit Diagnoses Not on filedocumented in this encounter Care Teams Rv Repair Technician Relationship Specialty Start Date End Date Stabell, Pepper M., MD PCP - General 09/16/16 documented as of this encounter
--- OUTSIDE RECORDS SUMMARY | 2024-06-18 19:04 | XMS_ITS | Encounter Summary ---
Author Organization [facility] Address [address] [facility] [address] [place] [address] Care Team Providers Care Truck Farmer Name Role Phone Pepper Morgan MD Primary Care Provider [phone] Reason for Visit * Reason Comments Post-op Encounter Details Date Type Department Care Team (Late st Contact Info) Description 03/07/2017 10:30 AM CDT Office Visit [facility] Orthopedics and Sports Medicine [address] [facility] [address] [place] [phone] Susan Chang PA [address] [facility] [address] [place] [address] Aftercare following left knee joint replacement surgery (Primary Dx) Social History Tobacco Use Types Packs/Day Years Used Date Smoking Tobacco: Former Smokeless Tobacco: Never Alcohol Use Standard Drinks/Week Comments Yes 0 (1 standard drink = 0.6 oz pur e alcohol) Comments No Sex and Gender Information Value Date Recorded Sex Assigned at Not on file 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 Gender Identity Not on file Sexual Orientation Not on file documented as of this encounter Last Filed Vital Signs Vital Sign Reading Time Taken Comments Blood Pressure 177/78 03/07/2017 10:35 AM CDT Pulse 65 03/07/2017 10:35 AM CDT Temperature - - Respiratory Rate - - Oxygen Saturation - - Inhaled Oxygen Concentration - - Weight 85.3 kg (188 lb) 03/07/2017 10:35 AM CDT Height 154.9 cm (5' 1 ) 03/07/2017 10:35 AM CDT Body Mass Index 35.52 03/07/2017 10:35 AM CDT documented in this encounter Progress Notes * BernardoSusan yeh, TEO - 03/07/2017 10:30 AM CDT Images from the original note were not included. FOLLOW UP VISIT Subjective CHIEF COMPLAINT She had concerns including Post-op of the Left Knee. HISTORY OF PRESENT ILLNESS Patient here s/p right TKA, now 4 weeks out. She was doing excellent at the end of last week; was ambulating painfree without cane, completing a HEP without issues, and was progressing well. Monday, she started to have some increased discomfort-she walked around a little bit, played cards, ate out,then came home and put ice on her knee. Monday, she was unable to ambulate secondary to pain. She states she feels like something is out of place. Her pain is mostly lateral. She has associated diffuse swelling of the LLE, which has been present and intermittent through herpost op period. She has been very concerned about infection, as her neighbor had a history of TKA with infection. She has taken a prior round of Keflex for some dagoberto-incisional redness, which appeared to be more positional/activity dependent. Pain Assessment Pain Assessment: 0-10 Pain Score: 7 MEDICATIONS She has a current medication list which includes the following prescription(s): biotin, cholecalciferol, doxepin, pepcid complete, felodipine, fluticasone, melatonin, meloxicam, pramipexole, propranolol, tramadol, cephalexin, and aleve. REVIEW OF SYSTEMS Review of Systems Constitutional: Negative for chills, fatigue and fever. Eyes: Negative for pain and visual disturbance. Respiratory: Negative for chest tightness and shortness of breath. Cardiovascular: Negative for chest pain and leg swelling. Gastrointestinal: Negative for abdominal pain, constipation, diarrhea and vomiting. Genitourinary: Negative for dysuria, frequency and urgency. Musculoskeletal: Negative for myalgias. Skin: Negative for rash and wound. Neurological: Negative for dizziness, weakness and light-headedness. Hematological: Does not bruise/bleed easily. Psychiatric/Behavioral: Negative for confusion and hallucinations. Objective PHYSICAL EXAM BP (!) 177/78 Pulse 65 Ht 154.9 cm (5' 1 ) Wt 85.3 kg (188 lb) LMP (LMP Unknown) BMI 35.52 kg/m?? Right knee Inspection Surgical scar/wound: present. The surgical scar/wound is healed and no evidence of infection. Thereis no drainage present. Skin temperature: normal Palpation Tenderness: present. The tenderness is located in the iliotibial band. Range of motion The patient has normal range of motion of the right knee. Left knee Inspection Erythema: present Swelling: moderate Effusion: 1+ Surgical scar/wound: present. The surgical scar/wound is no evidence of infection and healing. There is no drainage present. Skin temperature: warm Palpation Tenderness: present. The tenderness is located in the iliotibial band. Neurovascular The patient has normal vascular on the left side of their body. The patient has normal sensation on the left side of their body. REVIEW OF X-RAYS/STUDIES/LABS XR Knee Left 3 View X-rays of the left are reviewed and interpreted and demonstrate no acute fractures subluxations or osseous changes. Status post TKA changes noted with implants in acceptable position, without significant changes when compared bilaterally. Assessment/Plan Tess was seen today for post-op. Diagnoses and all orders for this visit: Aftercare following left knee joint replacement surgery - XR Knee Left 3 View - Erythrocyte sedimentation rate; Future - CRP (acute phase); Future - CBC with auto differential; Future PLAN Knee immobilizer was advised; pt noted she would not wear this. Ice frequently; Aleve BID as this has worked well for her in the past. Labs-will follow if elevated. F/u in 1 week; sooner if symptoms worsen. TEO Odonnell Cosigned by Hank Garibay MD at 03/14/2017 11:04 AM CDT documented in this encounter Plan of Treatment Not on file documented as of this encounter Procedures Procedure Name Priority Date/Time Associated Diagnosis Comments XR KNEE LEFT 3 VIEWS Schedule Routine, Read Routine (OP Routine) 03/07/2017 11:30 AM CDT Aftercare following left knee joint replacement surgery documented in this encounter Results * (ABNORMAL) CBC with auto differential (03/07/2017 12:53 PM CDT) WBC 7.09 3.80 - 9.80 K/cumm [facility] ([place]) RBC 4.74 3.90 - 5.00 M/cumm [facility] ([place]) Hgb 13.2 12.1 - 15.1 g/dL [facility] ([place]) Hct 40.8 36.1 - 44.3 % [facility] ([place]) MCV 86.1 80.0 - 100.0 fL [facility] ([place]) MCH 27.8 26.7 - 33.7 pg [facility] ([place]) MCHC 32.4(L) 32.7 - 36.0 g/dL [facility] ([place]) RDW CV 13.9 11.5 - 14.6 % [facility] ([place]) RDW SD 43.8 38.0 - 56.6 fL [facility] ([place]) Plt 307 140 - 440 K/cumm [facility] ([place]) MPV 9.2 8.0 - 12.0 fL [facility] ([place]) NRBC 0.0 0.0 - 0.0 % [facility] ([place]) NRBC abs 0.00 0.00 - 0.00 K/cumm [facility] ([place]) Blood specimen (specimen) 03/07/2017 12:53 PM CDT 03/07/2017 1:12 PM CDT us Susan BRUCE LAB BLOOD ORDERABLES Fi nal Result [facility] ([place]) 1 [facility] Department of Laboratories [place], [place] [id number] * CRP (acute phase) (03/07/2017 12:53 PM CDT) CRP 2.0 <=10.0 mg/L [facility] ([place]) Blood specimen (specimen) 03/07/2017 12:53 PM CDT 03/07/2017 1:12 PM CDT Result [facility] Susan BRUCE LAB BLOOD ORDERABLES Fi nal Result Performing Organization Address City/[facility]/ZIP Co de Phone Number [facility] 1 [facility] [place] [address] * Erythrocyte sedimentation rate (03/07/2017 12:53 PM CDT) Erythrocyte sedimentation rate 10 0 - 35 mm/hr [facility] Blood specimen (specimen) 03/07/2017 12:53 PM CDT 03/07/2017 1:12 PM CDT Result [facility] Susan BRUCE LAB BLOOD ORDERABLES Fi nal Result Performing Organization Address [facility] de Phone Number [facility] [address] [facility] [place] [address] * XR Knee Left 3 View (03/07/2017 11:30 AM CDT) Anatomical Region Laterality Modality Lower Extremities, Knee Left Digital Radiography Narrative 03/13/2017 11:02 AM CDT X-rays of the left are reviewed and interpreted and demonstrate no acute fractures subluxations or osseous changes. ??Status post TKA changes noted with implants in acceptable position, without significant changes when compared bilaterally. Result [facility] Susan BRUCE IMG XR PROCEDURES Final Result documented in this encounter Visit Diagnoses Diagnosis Aftercare following left knee joint replacement surgery- Primary documented in this encounter Discontinued Medications Medication Sig Discontinue Reason Start Date End Da te aspirin 81 mg chewable tablet chew 1 tablet by oral route every day Therapy completed 09/26/2016 03/07/2017 ascorbic acid (VITAMIN C) 500 mg tablet,chewable Take 1 tablet/chew tab (500 mg total) by mouth 2 (two) times a day. Surgery 02/07/2017 03/07/2017 ferrous sulfate 325 mg (65 mg of elemental iron) tabletIndications:Iro n Deficiency Anemia Take 1 tablet (65 mg of elemental iron total) by mouth daily with breakfast. Surgery 02/07/2017 03/07/2017 ondansetron (ZOFRAN) 4 mg tablet Every 4-6 hours as needed Surgery 02/07/2017 03/07/2017 senna-docusate (PERICOLACE) 8.6-50 mg 1-2 times daily as needed for constipation Surgery 02/07/2017 03/07/2017 oxyCODONE-acetaminoph en (PERCOCET) 5-325 mg per tabletIndications:Rey n Surgery 02/08/2017 03/07/2017 documented as of this encounter Care Teams Truck Farmer Relationship Specialty Start Date End Date Pepper Morgan MD PCP - General 09/16/16 documented as of this encounter
--- OUTSIDE RECORDS SUMMARY | 2024-06-18 19:04 | XMS_ITS | Encounter Summary ---
Author Organization [facility] Address [address] [place] [address] Care Team Providers Care Hand Candy Molder Name Role Phone Pepper Morgan MD Primary Care Provider +1- [phone] Encounter Details Date Type Department Care Team (Late st Contact Info) Description 01/25/2017 Telephone [facility] Orthopedics and Sports Medicine [address] [facility] [address] [place] [address] Hank Garibay MD [address] [place] [address] [address] [place] [address] Social History Tobacco Use Types Packs/Day Years Used Date Smoking Tobacco: Former Smokeless Tobacco: Former Alcohol Use Standard Drinks/Week Comments Yes 0 (1 standard drink = 0.6 oz pur e alcohol) Comments Unknown Sex and Gender Information Value Date Recorded Sex Assigned at Not on file 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 30 tablet 01/25/2017 03/27/2017 documented in this encounter Miscellaneous Notes * Telephone Encounter - Mckenzie Collins MA - 01/26/2017 9:06 AM CDT Called patient and informed her of her RX * Telephone Encounter - Susan Chang PA - 01/25/2017 4:28 PM CDT Sent in Rx for meloxicam, 15 mg daily. Let her know and advise her to Take PRN. * Telephone Encounter - Kellie Jackson - 01/25/2017 9:58 AM CDT Pt is calling because she has been taking Aleve, but it is not helping. She is needing another painmedicine. She is wanting a call at [phone] when that is ready. documented in this encounter Plan of Treatment Not on file documented as of this encounter Visit Diagnoses Not on filedocumented in this encounter Care Teams Hand Candy Molder Relationship Specialty Start Date End Date Pepper Morgan MD PCP - General 09/16/16 documented as of this encounter
--- OUTSIDE RECORDS SUMMARY | 2024-06-18 19:04 | XMS_ITS | Encounter Summary ---
Author Organization [facility] Healthcare Address [address] [place] [address] Care Team Providers Care Maintenance Team Leader Name Role Phone Pepper Morgan MD Primary Care Provider +1- [phone] Reason for Referral * MRI/CAT/PET Scan (Routine) - Closed Specialty Diagnoses / Procedures Referred By Contac t Referred To Contact Radiology Diagnoses Chronic pain of left knee Arthritis of knee Procedures MRI Knee Left WO Contrast Hank Garibay MD Phone: tel: fax: [address] [address] Referral ID Status Reason Start Date Expiration Date Visits Re quested Visits Authorized [id number] Closed 01/24/2017 07/23/2017 1 1 Encounter Details Date Type Department Care Team (Late st Contact Info) Description 01/26/2017 2:31 PM CDT - 01/26/2017 11:59 PM CDT Hospital Encounter [facility] Hank Garibay MD [address] [place] [address] [address] [facility] [address] [place] [address] Chronic pain of left knee; Arthritis of knee Discharge Disposition: Discharge to home or self care Social History Tobacco Use Types Packs/Day Years Used Date Smoking Tobacco: Former Smokeless Tobacco: Former Alcohol Use Standard Drinks/Week Comments Yes 0 (1 standard drink = 0.6 oz pur e alcohol) Comments Unknown Sex and Gender Information Value Date Recorded Sex Assigned at Not on file 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 Gender Identity Not on file Sexual Orientation Not on file documented as of this encounter Medications at Time of Discharge aspirin 81 mg chewable tablet chew 1 tablet by oral route every day 0 0 09/26/2016 7 biotin 10,000 mcg capsule i qd 0 0 09/26/2016 7 cholecalciferol (VITAMIN D-3) 2,000 unit capsule take 1 by Oral route every day 90 3 02/18/2015 7 doxepin (SINEquan) 10 mg capsule take 1 - 2 capsule by oral route every bedtime For sleep and to block recurrent angioedema 60 5 07/30/2014 7 famotidine-Ca carb-mag hydrox (PEPCID COMPLETE) 10-800-165 mg chewable tablet take 1 tablet by oral route 2 times every day As needed for upset stomach 1 1 09/26/2016 7 felodipine (PLENDIL) 2.5 mg 24 hr tablet TAKE 1 TABLET BY MOUTH TWICE DAILY 180 1 02/12/2014 7 fluticasone (FLONASE) 50 mcg/actuation nasal spray inhale 1 spray by intranasal route every day in each nostril 1 Bottle 3 06/22/2016 7 melatonin 5 mg tablet 5 mg. 0 0 07/23/2014 7 meloxicam (MOBIC) 15 mg tablet Take 1 tablet (15 mg total) by mouth daily. 30 tablet 01/25/2017 7 naproxen (ALEVE) 220 mg tablet take 2 tablet by oral route every day as needed 0 0 07/30/2014 7 pramipexole (MIRAPEX) 0.125 mg tablet TAKE 1-2 TABLETS BY MOUTH EVERY DAY 180 1 05/09/2011 7 propranolol (INDERAL) 20 mg tablet TAKE 1 TABLET BY ORAL ROUTE 2 TIMES EVERY DAY 180 1 02/12/2014 7 documented as of this encounter Discharge Disposition Disposition Code Departure Means Destination Discharge to home or self care documented in this encounter Plan of Treatment Not on file documented as of this encounter Procedures Procedure Name Priority Date/Time Associated Diagnosis Comments MRI KNEE LEFT WO CONTRAST Schedule Routine, Read Routine (OP Routine) 01/26/2017 8:21 PM CDT Chronic pain of left knee Arthritis of knee documented in this encounter Results * MRI Knee Left WO Contrast (01/26/2017 8:21 PM CDT) Anatomical Region Laterality Modality Lower Extremities Left Magnetic Reson ance 01/26/2017 8:21 PM CDT Narrative 01/26/2017 8:21 PM CDT MR Knee WO L ??- LEFT Acc#: ??[id number] DATE OF EXAM: ??Jan 26 2017 ?? [...] and muscular structures are unremarkable. IMPRESSION: ?? 1.[id number] TRICOMPARTMENT ARTHROSIS OF THE LEFT KNEE, ASYMMETRICALLY AFFECTING THE PATELLOFEMORAL COMPARTMENT. 2.F37BQDBOEPY INTRA-ARTICULAR LOOSE BODIES WITHIN THE ANTERIOR JOINT AND SUPRAPATELLAR RECESS DESCRIBED ABOVE. 3.N63YVNTYZMQ JOINT EFFUSION. 4.F33VOPRXPP TEAR OF THE ANTERIOR HORN OF THE LATERAL MENISCUS. Electronically signed by: Javan Daniels M.D. ? Interpreting Physician: ??DR WILLIAMS AGUILAR M.D. ??Read on: ??Jan 26 2017 ?? 3:34P Transcribed by: ??PSC ??On: Jan 26 2017 ??3:32P Approved Electronically by: ??LAUREN Mittal, DR KRAMER ??on: ??Jan 26 2017 ?? 3:32P Ordering DR: HANK GARIBAY Attending DR: HANK GARIBAY Attending: ??HANK GARIBAY Requesting: ??HANK GARIBAY Requesting Fax: ??[phone] Attending Fax: ??[phone] Attending ID: ??[id number] Requesting ID: ??[id number] Report To 1 ID: ??[id number] Report To 1 Name: ??HANK GARIBAY Report To 1 FAX: ??[phone] Next[facility] Order #: ??[id number] Procedure Note Miscellaneous, Not In File / Provider, MD Latasha - 01/26/2017 MR Knee WO L - LEFT Acc#: [id number] DATE OF EXAM: Jan 26 2017 MR [...] tissues and muscular structures are unremarkable. IMPRESSION: 1.[id number] TRICOMPARTMENT ARTHROSIS OF THE LEFT KNEE, ASYMMETRICALLY AFFECTING THE PATELLOFEMORAL COMPARTMENT. 2.C09OFHZAGRL INTRA-ARTICULAR LOOSE BODIES WITHIN THE ANTERIOR JOINT AND SUPRAPATELLAR RECESS DESCRIBED ABOVE. 3.O24TMFDMLGR JOINT EFFUSION. 4.C41VETOPXY TEAR OF THE ANTERIOR HORN OF THE LATERAL MENISCUS. Electronically signed by: Javan Daniels M.D. Interpreting Physician: DR WILLIAMS AGUILAR M.D. Read on: Jan 26 2017 3:34P Transcribed by: [facility] On: Jan 26 2017 3:32P Approved Electronically by: LAUREN Mittal, DR KRAMER on: Jan 26 2017 3:32P Ordering DR: HANK GARIBAY Attending DR: HANK GARIBAY Attending: HANK GARIBAY Requesting: HANK GARIBAY Requesting Attending Attending ID: [id number] Requesting ID: [id number] Report To 1 ID: [id number] Report To 1 Name: HANK GARIBAY Report To 1 FAX: [phone] [facility] Order #: [id number] Hank Garibay MD IMG MRI PROCEDURES Final Res ult documented in this encounter Visit Diagnoses Diagnosis Chronic pain of left knee Arthritis of knee Unspecified arthropathy, lower leg documented in this encounter Care Teams Maintenance Team Leader Relationship Specialty Start Date End Date Pepper Morgan MD PCP - General 09/16/16 documented as of this encounter
--- OUTSIDE RECORDS SUMMARY | 2024-06-18 19:04 | XMS_ITS | Encounter Summary ---
Author Organization [facility] Medical Group Address [address] [place] [address] Care Team Providers Care Early Childhood Teacher Assistant Name Role Phone Pepper Morgan MD Primary Care Provider [phone]- [phone] Encounter Details Date Type Department Care Team (Late st Contact Info) Description 03/09/2017 Telephone [facility] Orthopedics and Sports Medicine [address] [facility] [address] [place] [address] Hank Garibay MD [address] [place] [address] [address] [place] [address] Social History Tobacco Use Types Packs/Day Years Used Date Smoking Tobacco: Former Smokeless Tobacco: Never Alcohol Use Standard Drinks/Week Comments Yes 0 (1 standard drink = 0.6 oz pur e alcohol) Comments No Sex and Gender Information Value Date Recorded Sex Assigned at Not on file 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 Garibay about this-he is going to call patient * Telephone Encounter - Kellie Jackson Keely - 03/09/2017 9:13 AM CDT I spoke to Susan who said to put her on Dr. Garibay's schedule tomorrow. The pt was called and notified. * Telephone Encounter - Kellie Jackson - 03/09/2017 9:04 AM CDT Pt is calling because she was seen this week, but her pain is no better. She had left knee surgery on 02/[address] Garibay, but the pain feels like she is walking on a broken bone. There is stabbinggoing down her leg all the way to the ankle. She is taking Aleve and Tylenol, but it is not helpingat all. She is wanting to know what else can be done. She is wanting a call at [phone]. documented in this encounter Plan of Treatment Not on file documented as of this encounter Visit Diagnoses Not on filedocumented in this encounter Care Teams Early Childhood Teacher Assistant Relationship Specialty Start Date End Date Pepper Morgan MD PCP - General 09/16/16 documented as of this encounter
--- OUTSIDE RECORDS SUMMARY | 2024-06-18 19:04 | XMS_ITS | Encounter Summary ---
Author Organization [facility] Medical [facility] Address [address] [place] [address] Care Team Providers Care Military Pay Clerk Name Role Phone Pepper Morgan MD Primary Care Provider + [phone] Melissa Hoyt RN Unavailable [phone] Hank Garibay MD Unavailable [phone] Jacky Murry MD Unavailable [phone] Puma Mckenzie MD Unavailable [phone] Encounter Details Date Type Department Care Team (Late st Contact Info) Description 02/07/2017 Orders Only [facility] Orthopedics and Sports Medicine [address] [facility] [address] [place] [address] Chester Brannon PA [address] [place] [address] [address] [place] [address] Social History Tobacco Use Types Packs/Day Years [...] file 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 20 tablet 02/07/2017 7 senna-docusate (PERICOLACE) 8.6-50 mg 1-2 times daily as needed for constipation 60 tablet 1 02/07/2017 7 ferrous sulfate 325 mg (65 mg of elemental iron) tabletIndications :Iron Deficiency Anemia Take 1 tablet (65 mg of elemental iron total) by mouth daily with breakfast. 30 tablet 02/07/2017 7 ondansetron (ZOFRAN) 4 mg tablet Every 4-6 hours as needed 30 tablet 1 02/07/2017 7 HYDROcodone-aceta minophen (NORCO) 5-325 mg per tabletIndications :Pain 1-2 tabs Q4-6 hours prn pain 63 tablet 02/07/2017 7 aspirin 325 mg EC tablet Take 1 tablet (325 mg total) by mouth 2 (two) times a day for 28 days. 56 tablet 02/07/2017 0 ascorbic acid (VITAMIN C) 500 mg tablet,chewable Take 1 tablet/chew tab (500 mg total) by mouth 2 (two) times a day. 60 tablet/chew tab 02/07/2017 7 documented in this encounter Plan of Treatment Not on file documented as of this encounter Visit Diagnoses Not on filedocumented in this encounter Additional Health Concerns Infection Onset Date Last Indicated Resolved Time COVID: Suspected 06/01/2020 06/01/2020 06/15/2020 3:07 AM BUSINESS QUALITY ASSURANCE ANALYST documented as of this encounter Care Teams Military Pay Clerk Relationship Specialty Start Date End Date Pepper Morgan MD PCP - General 09/16/16 Melissa Hoyt, RN [address] [place] [id number] Appliance Sales Associate 02/21/17 02/21/17 Hank Garibay MD [address] [facility] [address] [place] [address] Surgeon Orthopedic Surgery 03/27/17 Jacky Murry MD [address] [place] [address] DR [address] [place] [address] Ophthalmology 03/27/17 Puma Mckenzie MD [address] [facility] [address] [place] [address] Surgeon Orthopedic Surgery 07/11/19 documented as of this encounter
--- OUTSIDE RECORDS SUMMARY | 2024-06-18 19:04 | XMS_ITS | Encounter Summary ---
Author Organization [facility] Address [address] [place] [address] Phone Care Team Providers Care Chute Tapper Name Role Phone Pepper Morgan MD Primary Care Provider [phone]- [phone] Encounter Details Date Type Department Care Team (Late st Contact Info) Description 02/02/2017 2:00 PM CDT Office Visit [facility] [address] [place] [address] Katy Bagley, NOEL [address] [facility] [place] [address] Primary osteoarthritis of left knee (Primary Dx); Pre-op evaluation Social History Tobacco Use Types Packs/Day Years Used Date Smoking Tobacco: Former Smokeless Tobacco: Never Alcohol Use Standard Drinks/Week Comments Yes 0 (1 standard drink = 0.6 oz pur e alcohol) Comments No Sex and Gender Information Value Date Recorded Sex Assigned at Not on file 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 Gender Identity Not on file Sexual Orientation Not on file documented as of this encounter Last Filed Vital Signs Vital Sign Reading Time Taken Comments Blood Pressure 112/70 02/02/2017 1:47 PM CDT Pulse 60 02/02/2017 1:47 PM CDT Temperature 36.3 ??C (97.3 ??F) 02/02/2017 1:47 PM CD T Respiratory Rate 20 02/02/2017 1:47 PM CDT Oxygen Saturation - - Inhaled Oxygen Concentration - - Weight 86.2 kg (190 lb) 02/02/2017 1:47 PM CDT Height - - Body Mass Index 35.9 01/24/2017 2:29 PM CDT documented in this encounter Patient Instructions * Patient Instructions* Katy Bagley NP - 02/02/2017 2:00 PM CDT 1. Primary osteoarthritis of left knee (primary) Left knee replacement scheduled for 02/07/[address] Garibay with rehab at [facility]. 2. Pre-op evaluation Pre-op lab work and EKG was reviewed. Assessment completed. Medications reviewed. Patient to stop all NSAIDS 5 days before surgery. followups are scheduled for 02/21/[address] Garibay's office. documented in this encounter Progress Notes * Katy Bagley NP - 02/02/2017 2:00 PM CDT Images from the original note were not included. Subjective/Objective Patient ID: Tess Benedict is a 81 y.o. female. Chief Complaint Pre op clearance for left knee replacement Tess Benedict is a 81 y.o. female in the office for pre operative clearance for left knee replacement. Dr. Garibay will be doing the surgery. Surgery date is 02/07/17. She will then be going to [facility] for rehab. She has completed her pre op lab work and EKG. This was all reviewed today. Labs were all good and EKG was within normal limits. She has her follow up scheduled with Dr. Garibay's office on 02/21. She has an appointment with Dr. RANGEL scheduled on 04/04/17. Today in office she denies any fever, chills, N,V,D, SOB, cough, chest pain, abdominal pain, UTI symptoms, headaches, or weakness. She has been instructed to stop the anti inflammatory medication 5 days before the surgery. Review of Systems Constitutional: Negative for appetite change, chills, fatigue and fever. HENT: Negative for postnasal drip, sinus pressure, sore throat and trouble swallowing. Eyes: Negative for visual disturbance. Respiratory: Negative for cough, shortness of breath and wheezing. Cardiovascular: Negative for chest pain, palpitations and leg swelling. Gastrointestinal: Negative for abdominal pain, blood in stool, constipation, diarrhea, nausea and vomiting. Genitourinary: Negative for difficulty urinating, dysuria, frequency, hematuria and urgency. Musculoskeletal: Negative for back pain. Left knee pain Neurological: Negative for dizziness, weakness and headaches. Vitals: 02/02/17 1347 BP: 112/70 Pulse: 60 Resp: 20 Temp: 36.3 ??C (97.3 ??F) Physical Exam Constitutional: No distress. HENT: Right Ear: External ear normal. Left Ear: External ear normal. Nose: Nose normal. Mouth/Throat: Oropharynx is clear and moist. Eyes: Conjunctivae are normal. Neck: Normal range of motion. Cardiovascular: Normal rate, regular rhythm and normal heart sounds. Pulmonary/Chest: Effort normal and breath sounds normal. Abdominal: Soft. Bowel sounds are normal. Musculoskeletal: She exhibits no edema. Legs: Lymphadenopathy: She has no cervical adenopathy. Neurological: She is alert. Skin: Skin is warm and dry. Psychiatric: She has a normal mood and affect. Lab work and EKG were completed on 01/30/17 and are viewable in [employer]. Hospital Outpatient Visit on 01/30/2017 Component Date [...] 01/30/2017 0.7 ??? Lymphocytes 01/30/2017 19.0 ??? Monos 01/30/2017 7.6 ??? Eosinophils 01/30/2017 4.2 ??? Basophils 01/30/2017 0.6 ??? Neutrophil absolute 01/30/2017 5.63 ??? Immature granulocyte, abs 01/30/2017 0.06 ??? Lymphocytes, abs 01/30/2017 1.58 ??? Monos, abs 01/30/2017 0.63 ??? Eosinophils, abs 01/30/2017 0.35 ??? Basophils, abs 01/30/2017 0.05 [...] 10 ??? Bilirubin 01/30/2017 0.2 ? ? eGFR 01/30/2017 >60 ??? Prealbumin 01/31/2017 19 ??? Report 01/31/2017 Value:Final Report: Insignificant growth based on current clinical standards. ??? Report 01/30/2017 Value:Final Report: Negative Assessment/Plan Diagnoses and all orders for this visit: 1. Primary osteoarthritis of left knee (primary) Left knee replacement scheduled for 02/07/[address] Garibay with rehab at [facility]. 2. Pre-op evaluation Pre-op lab work and EKG was reviewed. Assessment completed. Medications reviewed. Patient to stop all NSAIDS 5 days before surgery. followups are scheduled for 02/21/[address] Garibay's office. Katy Bagley NP documented in this encounter Plan of Treatment Not on file documented as of this encounter Visit Diagnoses Diagnosis Primary osteoarthritis of left knee- Primary Pre-op evaluation documented in this encounter Care Teams Chute Tapper Relationship Specialty Start Date End Date Pepper Morgan MD PCP - General 09/16/16 documented as of this encounter
--- OUTSIDE RECORDS SUMMARY | 2024-06-18 19:04 | XMS_ITS | Encounter Summary ---
Author Organization [facility] Medical [facility] Address [address] [place] [address] Care Team Providers Care Angle Roll Operator Name Role Phone Pepper Morgan MD Primary Care Provider +1- [phone] Encounter Details Date Type Department Care Team (Late st Contact Info) Description 03/16/[address] 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 She is wanting a call at [phone] or [phone]. documented in this encounter Plan of Treatment Not on file documented as of this encounter Visit Diagnoses Not on filedocumented in this encounter Care Teams Angle Roll Operator Relationship Specialty Start Date End Date Pepper Morgan MD PCP - General 09/16/16 documented as of this encounter
--- OUTSIDE RECORDS SUMMARY | 2024-06-18 19:04 | XMS_ITS | Encounter Summary ---
Author Organization [facility] Medical Group Address [address] [place] [address] Care Team Providers Care Power Ballast Machine Operator Name Role Phone Pepper Morgan MD Primary Care Provider +1- [phone] Encounter Details Date Type Department Care Team (Late st Contact Info) Description 01/24/2017 Telephone [facility] Medical Group Orthopedics and Sports Medicine [address] [facility] [address] [place] [address] Hank Garibay MD [address] [place] [address] [address] [place] [address] Social History Tobacco Use Types Packs/Day Years Used Date Smoking Tobacco: Former Smokeless Tobacco: Former Alcohol Use Standard Drinks/Week Comments Yes 0 (1 standard drink = 0.6 oz pur e alcohol) Comments Unknown Sex and Gender Information Value Date Recorded Sex Assigned at Not on file 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 Garibay today. * Telephone Encounter - Kellie Jackson Keely - 01/24/2017 8:38 AM CDT Pt is calling because she got an injection in her knee last Monday, but now the pain is unbearable. She has been taking Aleve, but it is not helping. She is wanting to know what else can be done. She is wanting a call at [phone]. documented in this encounter Plan of Treatment Not on file documented as of this encounter Visit Diagnoses Not on filedocumented in this encounter Care Teams Power Ballast Machine Operator Relationship Specialty Start Date End Date Pepper Morgan MD PCP - General 09/16/16 documented as of this encounter
--- OUTSIDE RECORDS SUMMARY | 2024-06-18 19:04 | XMS_ITS | Encounter Summary ---
Author Organization [facility] Address [address] [place] [address] Care Team Providers Care Automation Test Developer Name Role Phone Pepper Morgan MD Primary Care Provider [phone] Reason for Visit * Reason Comments Injections Encounter Details Date Type Department Care Team (Latest Contact Info) Description 03/14/2017 1:15 PM CDT Office Visit [facility] Orthopedics and Sports Medicine [address] [place] [phone] Dre Buitrago MD [address] [place] [address] Primary osteoarthritis of both hips (Primary Dx) Social History Tobacco Use Types Packs/Day Years Used Date Smoking Tobacco: Former Smokeless Tobacco: Never Alcohol Use Standard Drinks/Week Comments Yes 0 (1 standard drink = 0.6 oz pur e alcohol) Comments No Sex and Gender Information Value Date Recorded Sex Assigned at Not on file 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 Gender Identity Not on file Sexual Orientation Not on file documented as of this encounter Last Filed Vital Signs Vital Sign Reading Time Taken Comments Blood Pressure 155/82 03/14/2017 1:21 PM CDT Pulse 65 03/14/2017 1:21 PM CDT Temperature - - Respiratory Rate - - Oxygen Saturation - - Inhaled Oxygen Concentration - - Weight 87 kg (191 lb 12.8 oz) 03/14/2017 1:21 PM CDT Height 154.9 cm (5' 1 ) 03/14/2017 1:21 PM CDT Body Mass Index 36.24 03/14/2017 1:21 PM CDT documented in this encounter Progress Notes * Dre Buitrago MD - 03/14/2017 1:15 PM CDTAssociated Order(s): LARGE JOINT ARTHROCENTESIS Post-Procedure Diagnose(s): Primary osteoarthritis of both hips Images from the original note were not included. NEW PATIENT VISIT Subjective CHIEF COMPLAINT She had concerns including Injections of the Left Hip. HISTORY OF PRESENT ILLNESS Mrs. Perez presents today as a referral from Dr. Garibay for ultrasound guided injection of the left hip. 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 At her last visit he mentioned getting an xray of the hip, and she states she told him she does not want a hip replacement. She states she gets sick from anesthesia and has had a bad reaction to the anesthesia with vomiting when she had her knees replaced. Lifting her hip makes the pain worse, not lifting makes the pain better. She as in PT for her knee until the pain got worse. Taking Aleve and Tylenol for the pain. Pain radiates down her leg. Using a cane for ambulation. PAST MEDCIAL HISTORY She has a past medical history of OTHER MEDICAL (1991); OTHER MEDICAL; OTHER MEDICAL; OTHER MEDICAL; Malignant melanoma ([facility]); and Superficial basal cell carcinoma (2002). PAST SURGICAL HISTORY She has a past surgical history that includes Breast biopsy (1994); knee arthroscopy (2002); Cholecystectomy (1991); Hand surgery (1975); Other surgical history (1983); Other surgical history (1991);Other surgical history (2002); knee arthroscopy; Cholecystectomy; and Hernia repair. MEDICATIONS She has a current medication list which includes the following prescription(s): biotin, cephalexin,cholecalciferol, doxepin, pepcid complete, felodipine, fluticasone, melatonin, meloxicam, aleve, pramipexole, propranolol, and tramadol. ALLERGIES She is allergic to celecoxib; sulfa (sulfonamide antibiotics); lisinopril; amlodipine; and scopolamine. SOCIAL HISTORY She reports that she has quit smoking. She has never used smokeless tobacco. She reports that she drinks alcohol. FAMILY HISTORY Her family history includes Arthritis in her other; Cancer in her other. REVIEW OF SYSTEMS Review of Systems Constitutional: Negative. HENT: Negative. Eyes: Negative. Respiratory: Negative. Cardiovascular: Negative. Gastrointestinal: Negative. Genitourinary: Negative. Skin: Negative. Neurological: Negative. Psychiatric/Behavioral: Negative. All other systems reviewed and are negative. Objective PHYSICAL EXAM BP 155/82 Pulse 65 Ht 154.9 cm (5' 1 ) Wt 87 kg (191 lb 12.8 oz) LMP (LMP Unknown) BMI 36.24 kg/m?? Spine Left strength Left quadricep: 4/5 strength. Left hamstrin/5 strength. Right hip The patient has nomal inspection, palpation, range of motion, strength, and stability of the right hip. Inspection The patient has normal inspection of the right hip. Palpation The patient has normal palpation of the right hip. Range of motion The patient has normal range of motion of the right hip. Stability The patient has normal stabiltiy of the right hip. Strength The patient has 5/5 strength throughout. Neurovascular The patient has normal vascular on the right side of their body. The patient has normal sensation. Left hip Inspection Gait: antalgic Limp: slight Supportive device: long cane Palpation The patient has normal palpation of the left hip. Range of motion The patient has reduced range of motion of the left hip. Stability The patient has normal stability of the left hip. Strength Hip abduction: 4/5. Hip adduction: 4/5. Hip extension: 2/5. Hip flexion: 4/5. Knee extension: 4/5. Knee flexion: 4/5. Neurovascular The patient has normal vascular on the left side of their body. The patient has normal sensation on the left side of their body. Tests KYLE: positive FADIR: positive Comments: + log roll REVIEW OF X-RAYS/STUDIES/LABS Assessment/Plan There are no diagnoses linked to this encounter. Large Joint (Hip, Knee, Shoulder) Injection Date/Time: 03/14/2017 2:14 PM Performed by: DRE BUITRAGO Authorized by: DRE BUITRAGO CPT 88914 - Large Joint Injection: Consent Given by: Patient Site marked: the procedure site was marked Verbal consent obtained: Yes Supporting Documentation: Indications: Pain Procedure Details: Location: Hip Site: L hip joint Needle Size: 22 G Approach: Anterior Ultrasound guided: Yes Medications: 10 mL lidocaine 20 mg/mL (2 %); 3 mL lidocaine 20 mg/mL (2 %); 80 mg methylPREDNISolone acetate 80 mg/mL Patient tolerance: Patient tolerated the procedure well with no immediate complications PLAN Ice hip for 20 minutes every 2-3 hours for 24-48 hours. ADLs only for 24-48 hours. Continue currentpain regimen as needed. Follow up with Dr. Garibay as previously recommended. She is in full understanding and in agreement with the plan, and all of her questions were answered. Dre Buitrago MD documented in this encounter Plan of Treatment Not on file documented as of this encounter Procedures Procedure Name Priority Date/Time Associated Diagnosis Comments MT ARTHROCENTESIS ASPIR&/INJ MAJOR JT/BURSA W/US Routine 03/14/2017 1:15 PM CDT Primary osteoarthritis of both hips documented in this encounter Results * MT ARTHROCENTESIS ASPIR&/INJ MAJOR JT/BURSA W/US (03/14/2017 1:15 PM CDT) Narrative Dre Buitrago MD - 03/14/2017 1:15 PM CDT Dre Buitrago MD ? 03/14/2017 ??2:18 PM Large Joint (Hip, Knee, Shoulder) Injection Date/Time: 03/14/2017 2:14 PM Performed by: DRE BUITRAGO Authorized by: DRE BUITRAGO CPT 71518 - Large Joint Injection: ??Consent Given by: ??Patient ??Site marked: the procedure site was marked ?Verbal consent obtained: Yes ?? Supporting Documentation: ??Indications: ??Pain Procedure Details: ??Location: ??Hip ??Site: ??L hip joint ??Needle Size: ??22 G ??Approach: ??Anterior ??Ultrasound guided: Yes ?Medications: ??10 mL lidocaine 20 mg/mL (2 %); 3 mL lidocaine 20 mg/mL (2 %); 80 mg methylPREDNISolone acetate 80 mg/mL ??Patient tolerance: ??Patient tolerated the procedure well with no immediate complications us Dre Buitrago MD IN CLINIC/BEDSIDE [facility] Final Result documented in this encounter Visit Diagnoses Diagnosis Primary osteoarthritis of both hips- Primary documented in this encounter Administered Medications Inactive Administered Medications - up to 3 most recent administrations Medication Order MAR Action Action Date Dose Rate Site lidocaine (XYLOCAINE) 20 mg/mL (2 %) injection 10 mL 10 mL, other, One-Time Injection, Starting on Mon03/14/17 at 1414, For 1 dose, Indications: Administration of Local AnesthesiaIndications:Administratio n of Local Anesthesia Given 03/14/2017 2:14 PM CDT 10 mL lidocaine (XYLOCAINE) 20 mg/mL (2 %) injection 3 mL 3 mL, One-Time Injection, Starting on Mon03/14/17 at 1414, For 1 dose, Indications: Administration of Local AnesthesiaIndications:Administratio n of Local Anesthesia Given 03/14/2017 2:14 PM CDT 3 mL methylPREDNISolone acetate (DEPO-medrol) injection 80 mg 80 mg, intra-articular, One-Time Injection, Starting on Mon03/14/17 at 1414, For 1 doseIndications:Primary osteoarthritis of both hips Given 03/14/2017 2:14 PM CDT 80 mg documented in this encounter Care Teams Automation Test Developer Relationship Specialty Start Date End Date Pepper Morgan MD PCP - General 09/16/16 documented as of this encounter
--- OUTSIDE RECORDS SUMMARY | 2024-06-18 19:04 | XMS_ITS | Encounter Summary ---
Author Organization [facility] Address [address] [place] [address] Care Team Providers Care Home Companion Name Role Phone Pepper Morgan MD Primary Care Provider [phone] Melissa Hoyt RN Unavailable [phone] Hank Garibay MD Unavailable [phone] Jacky Murry MD Unavailable [phone] Puma Mckenzie MD Unavailable [phone] Encounter Details Date Type Department Care Team (Late st Contact Info) Description 01/25/[address] 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 Gender Identity Not on file Sexual Orientation Not on file documented as of this encounter Plan of Treatment Not on file documented as of this encounter Visit Diagnoses Diagnosis Primary osteoarthritis of left knee- Primary documented in this encounter Orders General Supply Count Last Ordered Date First Or dered Date NEUROMUSCULAR ELECTRICAL STI MULATION (NMES) 1 01/25/2017 documented in this encounter Additional Health Concerns Infection Onset Date Last Indicated Resolved Time COVID: Suspected 06/01/2020 06/01/2020 06/15/2020 3:07 AM CASUALTY CLAIM ADJUSTER documented as of this encounter Care Teams Home Companion Relationship Specialty Start Date End Date Pepper Morgan MD PCP - General 09/16/16 Melissa Hoyt, RN [address] [place] [address] [place] [address] Ornamental Iron Worker Apprentice 02/21/17 02/21/17 Hank Garibay MD [address] [place] [address] Surgeon Orthopedic Surgery 03/27/17 Jacky Murry MD [address] [place] [address] Ophthalmology 03/27/17 Puma Mckenzie MD [address] [address] [place] [address] Surgeon Orthopedic Surgery 07/11/19 documented as of this encounter
--- OUTSIDE RECORDS SUMMARY | 2024-06-18 19:04 | XMS_ITS | Encounter Summary ---
Author Organization [facility] Address [address] [place] [address] Care Team Providers Care Dispensing Optician Name Role Phone Pepper Morgan MD Primary Care Provider [phone] Melissa Hoyt RN Unavailable [phone] Encounter Details Date Type Department Care Team (Late st Contact Info) Description 02/21/2017 Telephone [facility] Orthopedics and Sports Medicine [address] [place] [address] Chester Brannon PA [address] [place] [address] Social History Tobacco Use Types Packs/Day Years Used Date Smoking Tobacco: Former Smokeless Tobacco: Never Alcohol Use Standard Drinks/Week Comments Yes 0 (1 standard drink = 0.6 oz pur e alcohol) Comments No Sex and Gender Information Value Date Recorded Sex Assigned at Not on file 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 States that the original script did not transfer with pt when [facility]. Pt has received medication. The script needs to be dated 02/08/17. If needed someone from [facility] pharmacy can walk overand get script documented in this encounter Plan of Treatment Not on file documented as of this encounter Visit Diagnoses Not on filedocumented in this encounter Care Teams Dispensing Optician Relationship Specialty Start Date End Date Pepper Morgan MD PCP - General 09/16/16 Melissa Hoyt, RN [address] [place] [address] Chief Nursing Officer 02/21/17 02/21/17 documented as of this encounter
--- OUTSIDE RECORDS SUMMARY | 2024-06-18 19:04 | XMS_ITS | Encounter Summary ---
Author Organization [facility] Address [address] [place] [address] Phone Care Team Providers Care Practicing Md Anesthesiologist Name Role Phone Pepper Morgan MD Primary Care Provider + [phone] Hank Garibay MD Unavailable [phone] Jacky Murry MD Unavailable [phone] Encounter Details Date Type Department Care Team (Late st Contact Info) Description 03/27/2017 10:00 AM CDT Office Visit [facility] [address] [place] [address] Katy Bagley NP [address] [facility] [place] [address] Benign essential hypertension (Primary Dx); Hereditary essential tremor Social History Tobacco Use Types Packs/Day Years Used Date Smoking Tobacco: Former Smokeless Tobacco: Never Alcohol Use Standard Drinks/Week Comments Yes 0 (1 standard drink = 0.6 oz pur e alcohol) Comments No Sex and Gender Information Value Date Recorded Sex Assigned at Not on file 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 Gender Identity Not on file Sexual Orientation Not on file documented as of this encounter Last Filed Vital Signs Vital Sign Reading Time Taken Comments Blood Pressure 142/80 03/27/2017 10:33 AM CDT Pulse 55 03/27/2017 9:50 AM CDT Temperature 36.3 ??C (97.3 ??F) 03/27/2017 9:50 AM CD T Respiratory Rate 20 03/27/2017 9:50 AM CDT Oxygen Saturation 98% 03/27/2017 9:50 AM CDT Inhaled Oxygen Concentration - - Weight 87.1 kg (192 lb) 03/27/2017 9:50 AM CDT Height 154.9 cm (5' 1 ) 03/27/2017 9:50 AM CDT Body Mass Index 36.28 03/27/2017 9:50 AM CDT documented in this encounter Patient Instructions * Patient Instructions* Katy Bagley NP - 03/27/2017 10:00 AM CDT 1. Benign essential hypertension (Primary) - felodipine (PLENDIL) 2.5 mg 24 hr tablet; Take 1 tablet (2.5 mg total) by mouth 2 (two) times a day. - propranolol (INDERAL) 20 mg tablet; Take 1 tablet (20 mg total) by mouth 2 (two) times a day. 2. Hereditary essential tremor - pramipexole (MIRAPEX) 0.125 mg tablet; Take 1-2 tablets by mouth every day keep appointment in 04/04/[address] RANGEL. Bring all medication bottles to all office appointments. 1. Benign essential hypertension (Primary) - felodipine (PLENDIL) 2.5 mg 24 hr tablet; Take 1 tablet (2.5 mg total) by mouth 2 (two) times a day. - propranolol (INDERAL) 20 mg tablet; Take 1 tablet (20 mg total) by mouth 2 (two) times a day. 2. Hereditary essential tremor - pramipexole (MIRAPEX) 0.125 mg tablet; Take 1-2 tablets by mouth every day keep appointment in 04/04/[address] RANGEL. Bring all medication bottles to all office appointments. documented in this encounter Ordered Prescriptions Prescription Sig Dispense Quantity Refills Last Filled Start Date End Date propranolol (INDERAL) 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: Benign essential hypertension Take 1 tablet (20 mg total) by mouth 2 (two) times a day. 180 tablet 1 03/27/2017 8 pramipexole (MIRAPEX) 0.125 mg tabletIndications: Hereditary essential tremor Take 1-2 tablets by mouth every day 90 tablet 1 03/27/2017 8 felodipine (PLENDIL) 2.5 mg 24 hr tabletIndications: Benign essential hypertension Take 1 tablet (2.5 mg total) by mouth 2 (two) times a day. 180 tablet 1 03/27/2017 8 documented in this encounter Progress Notes * Katy Bagley, NOEL - 03/27/2017 10:00 AM CDT Images from the original note were not included. Subjective/Objective Patient ID: Tess Benedict is a 81 y.o. female. Chief Complaint Medication refills prior to appointment with Dr. RANGEL Tess Benedict is a 81 y.o. female in the office for medication refills prior to office visit with Dr. RANGEL. She has brought in her medication bottles today. meds were reviewed. Care team updated. Patient has no health concerns today. Review of Systems Constitutional: Negative for chills and fever. Respiratory: Negative for shortness of breath. Cardiovascular: Negative for chest pain. Gastrointestinal: Negative for diarrhea, nausea and vomiting. Neurological: Negative for dizziness and weakness. Physical Exam Constitutional: No distress. Cardiovascular: Normal rate, regular rhythm and normal heart sounds. Pulmonary/Chest: Effort normal and breath sounds normal. Psychiatric: She has a normal mood and affect. Assessment/Plan Diagnoses and all orders for this visit: 1. Benign essential hypertension (Primary) - felodipine (PLENDIL) 2.5 mg 24 hr tablet; Take 1 tablet (2.5 mg total) by mouth 2 (two) times a day. - propranolol (INDERAL) 20 mg tablet; Take 1 tablet (20 mg total) by mouth 2 (two) times a day. 2. Hereditary essential tremor - pramipexole (MIRAPEX) 0.125 mg tablet; Take 1-2 tablets by mouth every day keep appointment in 04/04/[address] RANGEL. Bring all medication bottles to all office appointments. Katy Bagley NP Cosigned by Pepper Morgan MD at 03/27/2017 9:59 PM CDT documented in this encounter Plan of Treatment Not on file documented as of this encounter Visit Diagnoses Diagnosis Benign essential hypertension- Primary Essential hypertension, benign Hereditary essential tremor Essential and other specified forms of tremor documented in this encounter Discontinued Medications Medication Sig Discontinue Reason Start Date End Da te meloxicam (MOBIC) 15 mg tablet Take 1 tablet (15 mg total) by mouth daily. 01/25/2017 03/27/2017 traMADol (ULTRAM) 50 mg tablet take1-2 tabs every 4-6 hours prn for pain 02/18/2017 03/27/2017 fluticasone (FLONASE) 50 mcg/actuation nasal spray inhale 1 spray by intranasal route every day in each nostril 06/22/2016 03/27/2017 famotidine-Ca carb-mag hydrox (PEPCID COMPLETE) 10-800-165 mg chewable tablet take 1 tablet by oral route 2 times every day As needed for upset stomach 09/26/2016 03/27/2017 cephalexin (KEFLEX) 250 mg capsule Take 1 capsule (250 mg total) by mouth 4 (four) times a day. 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 02/21/2017 03/27/2017 doxepin (SINEquan) 10 mg capsule take 1 - 2 capsule by oral route every bedtime For sleep and to block recurrent angioedema 07/30/2014 03/27/2017 felodipine (PLENDIL) 2.5 mg 24 hr tablet TAKE 1 TABLET BY MOUTH TWICE DAILY Reorder 02/12/2014 03/27/2017 pramipexole (MIRAPEX) 0.125 mg tablet TAKE 1-2 TABLETS BY MOUTH EVERY DAY Reorder 05/09/2011 03/27/2017 propranolol (INDERAL) 20 mg tablet TAKE 1 TABLET BY ORAL ROUTE 2 TIMES EVERY DAY Reorder 02/12/2014 03/27/2017 documented as of this encounter Historical Medications * This list may reflect changes made after this encounter. aspirin 81 mg tablet Take 81 mg by mouth daily. 03/27/2019 added in this encounter Care Teams Practicing Md Anesthesiologist Relationship Specialty Start Date End Date Pepper Morgan MD PCP - General 09/16/16 Hank Garibay MD [address] [facility] [address] [facility] [address] [place] [address] Surgeon Orthopedic Surgery 03/27/17 Jacky Murry MD [address] [facility] [facility] [address] [place] [address] Ophthalmology 03/27/17 documented as of this encounter
--- OUTSIDE RECORDS SUMMARY | 2024-06-18 19:04 | XMS_ITS | Encounter Summary ---
Author Organization [facility] Healthcare Address [address] [place] [address] Care Team Providers Care Forest Technology Professor Name Role Phone Pepper Morgan MD Primary Care Provider [phone]- [phone] Encounter Details Date Type Department Care Team (Late st Contact Info) Description 01/30/2017 1:41 PM CDT - 01/30/2017 11:59 PM CDT Hospital Encounter [facility] Hank Garibay MD [address] [place] [address] [address] [address] Discharge Disposition: Discharge to home or self care Social History Tobacco Use Types Packs/Day Years Used Date Smoking Tobacco: Former Smokeless Tobacco: Former Alcohol Use Standard Drinks/Week Comments Yes 0 (1 standard drink = 0.6 oz pur e alcohol) Comments Unknown Sex and Gender Information Value Date Recorded Sex Assigned at Not on file 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 Gender Identity Not on file Sexual [...] Name Priority Date/Time Associated Diagnosis Comments EGFR New Adm-Reg 01/30/2017 1:50 PM CDT DIFFERENTIAL AUTO New Adm-Reg 01/30/2017 1:5 0 PM CDT CBC WITH AUTO DIFFERENTIAL New Adm-Reg 01/30 1:50 PM CDT APTT New Adm-Reg 01/30/2017 1:50 PM CDT PROTIME-INR New Adm-Reg 01/30/2017 1:50 PM CDT INFECTION PREVENTION MRSA ONLY (STAPHYLOCOCCUS AUREUS) CULTURE New Adm-Reg 01/30/2017 1:50 PM CDT PREALBUMIN New Adm-Reg 01/30/2017 1:50 PM CDT COMPREHENSIVE METABOLIC PANEL New Adm-Reg 01/30/2017 1:50 PM CDT URINALYSIS AND REFLEX TO MICROSCOPIC AND CULTURE New Adm-Reg 01/30/2017 1:45 PM CDT URINALYSIS, MICROSCOPIC ONLY New Adm-Reg 01/30/2017 1:45 PM CDT URINE CULTURE New Adm-Reg 01/30/2017 1:45 PM CDT ELECTROCARDIOGRAPHY (ECG) 01/30/2017 DISCHARGE LABORATORY CUMULATIVE REPORT 01/30/2017 12:00 AM CDT documented in this encounter Results * MRSA culture (01/30/2017 1:50 PM CDT) Report Final Report: Negative [facility] ([place]) Comment:Testing performed by : [facility], [address] [place]., [address] Nasal 01/30/2017 1:50 PM CDT 01/30/2017 5:13 PM CDT Narrative [facility] ([place]) - 01/30/2017 5:13 PM CDT us Hank Garibay MD LAB MICROBIOLOGY - GENERAL O RDERABLES Final Result [facility] ([place]) 1 [facility] Department [place] [address] * Prealbumin (01/30/2017 1:50 PM CDT) Prealbumin 19 18 - 40 mg/dL [facility] Blood specimen (specimen) 01/30/2017 1:50 PM CDT 01/30/2017 7:09 PM CDT us Hank Garibay MD LAB BLOOD ORDERABLES Final R esult [facility] ([place] 1 [facility] Department [place] [address] * eGFR (01/30/2017 1:50 PM CDT) eGFR >60 mL/min/1.7 3 m2 [facility] ([place] Comment: Interpretive Data Reference Interval Normal ?>/= 90 mL/min/1.73m2 Mildly decreased* ? 60 - 89 mL/min/1.73m2 Mildly to moderately decreased ?45 - 59 mL/min/1.73m2 Moderately to severely decreased ??30 - 44 mL/min/1.73m2 Severely decreased ?15 - 29 mL/min/1.73m2 Kidney Failure ?< 15 ??mL/min/1.73m2 *Relative to young adult level If -[place] multiply value by 1.16. Estimated glomerular filtration [...] was last reviewed 2016. Blood specimen (specimen) 01/30/2017 1:50 PM CDT 01/30/2017 2:32 PM CDT us Hank Garibay MD LAB BLOOD ORDERABLES Final R esult [facility] ([place]) 1 [facility] Department [place] [address] * (ABNORMAL) Comprehensive metabolic panel (01/30/2017 1:50 PM CDT) Sodium 140 135 - 145 mmol/L [facility] ([place]) Potassium 4.7 3.5 - 5.1 mmol/L [facility]) Chloride 100 97 - 110 mmol/L [facility]) CO2 30 22 - 32 mmol/L [facility] Anion gap 10 8 - 16 mmol/L [facility]) Glucose 113 70 - 199 mg/dL [facility] ([place]) Comment: Interpretive Data Note:The glucose is assumed non fasting Fastin-99 mg/dL Random: ??70-199 mg/dL Either a fasting glucose > 126 mg/dL or a random glucose > 200 mg/dL plus symptoms is diagnostic of diabetes when confirmed on another day. Fasting values > 100 mg/dL but < 125 mg/dL are diagnostic of impaired fasting glucose. Current interpretive data was last revised on 2014. BUN 20.2 8.0 - 25.0 mg/dL [facility] ([place]) Creatinine 0.61 0.60 - 1.10 mg/dL [facility] [place]) BUN/creat ratio 33(H) 10 - 20 [facility] ([place]) Calcium 9.2 8.6 - 10.2 mg/dL [facility] [place]) Protein, sr 6.6 6.0 - 8.4 g/dL [facility] [place]) Albumin 3.6 3.6 - 5.0 g/dL [facility]) Alk phos 96 40 - 130 Units/L [facility] [place] ALT 9 5 - 45 Units/L [facility] [place] AST 10 10 - 40 Units/L [facility] [place]) Bilirubin, total 0.2 <=1.2 mg/dL [facility]) Blood specimen (specimen) 01/30/2017 1:50 PM CDT 01/30/2017 2:32 PM CDT Hank Garibay MD LAB BLOOD ORDERABLES Final R esult [facility] ([place]) 1 [facility] [place] [address] * Protime-INR (01/30/2017 1:50 PM CDT) PT 12.1 9.5 - 12.5 sec [facility] ([place] INR 1.07 0.90 - 1.20 [facility] ([place] Comment: Interpretive Data Recommended ranges for Protime INR: 2.0 - 3.0 Most indications for Warfarin therapy (e.g. Treatment of DVT, PE, bioprosthetic valve replacement, prophylaxis venous thrombosis, atrial fibrillation). 2.5 - 3.5 Mechanical mitral valve or dual mechanical mitral and Aortic valve replacement. Current Interpretive Data was last revised on 2015. Blood specimen (specimen) 01/30/2017 1:50 PM CDT 01/30/2017 2:32 PM CDT us Hank Garibay MD LAB BLOOD ORDERABLES Final R esult Performing Organization Address [facility] Co de Phone Number [facility] ([place]) 1 [facility] [place] [address] * aPTT (01/30/2017 1:50 PM CDT) aPTT 28.4 25.0 - 37.[address] [facility] Blood specimen (specimen) 01/30/2017 1:50 PM CDT 01/30/2017 2:32 PM CDT Hank Garibay MD LAB BLOOD ORDERABLES Final R esult [facility] ([place]) 1 [facility] [place] [address] * Differential, auto (01/30/2017 1:50 PM CDT) Neutrophil pct 67.9 44.0 - 80.0 % [facility] Imm gran pct 0.7 0.0 - 1.0 % [facility] Lymphocyte pct 19.0 13.0 - 44.0 % [facility]) Monocyte pct 7.6 2.0 - 11.0 % [facility]) Eosinophil pct 4.2 0.0 - 6.0 % [facility]) Basophil pct 0.6 0.0 - 3.0 % [facility] Neutrophil abs 5.63 1.60 - 7.00 K/cumm [facility] ([place]) Imm gran abs 0.06 0.00 - 0.20 K/cumm [facility] ([place]) Lymphocyte abs 1.58 0.50 - 4.30 K/cumm [facility] ([place]) Monocyte abs 0.63 0.10 - 1.00 K/cumm [facility] ([place]) Eosinophil abs 0.35 0.00 - 0.60 K/cumm [facility]) Basophil abs 0.05 0.00 - 0.30 K/cumm [facility]) Blood specimen (specimen) 01/30/2017 1:50 PM CDT 01/30/2017 2:32 PM CDT us Hank Garibay MD LAB BLOOD ORDERABLES Final R esult [facility] ([place] 1 [facility] Department [place] [address] * (ABNORMAL) CBC with auto differential (01/30/2017 1:50 PM CDT) Pathologist [facility] WBC 8.30 3.80 - 9.80 K/cumm [facility] ([place]) RBC 4.92 3.90 - 5.00 M/cumm [facility]) Hgb 13.6 12.1 - 15.1 g/dL [facility]) Hct 42.0 36.1 - 44.3 % [facility] MCV 85.4 80.0 - 100.0 fL [facility]) MCH 27.6 26.7 - 33.7 pg [facility]) MCHC 32.4(L) 32.7 - 36.0 g/dL [facility]) RDW CV 14.1 11.5 - 14.6 % [facility]) Plt 284 140 - 440 K/cumm [facility]) MPV 9.2 8.0 - 12.0 fL [facility]) NRBC 0.0 0.0 - 0.0 % [facility] ([place]) NRBC abs 0.00 0.00 - 0.00 K/cumm [facility] ([place]) Blood specimen (specimen) 01/30/2017 1:50 PM CDT 01/30/2017 2:32 PM CDT Hank Garibay MD LAB BLOOD ORDERABLES Final R esult Performing Organization Address City/[facility]/ZIP Co de Phone Number [facility] ([place]) 1 [facility] [email or web address] [place] [address] * Urine culture (01/30/2017 1:45 PM CDT) Report Final Report: Insignifican t growth based on current clinical standards. [facility] ([place]) Comment:Testing performed by : [facility], [address] [place]., [address] Urine, clean voided 01/30/2017 1:45 PM CDT 01/30/2017 5:14 PM CDT Narrative [facility] ([place]) - 01/31/2017 9:46 AM CDT Hank Garibay MD LAB MICROBIOLOGY - GENERAL O RDERABLES Final Result Performing Organization Address City/[facility]/ZIP Co de Phone Number [facility] ([place]) 1 [facility] [email or web address] [address] * (ABNORMAL) Urinalysis, microscopic only (01/30/2017 1:45 PM CDT) RBC, ur 2-5(A) 0 - 2 [facility] ([place] WBC, ur 10-25(A) 0 - 2 [facility]) Bacteria, ur Negative Negative [facility]) Hyaline casts, ur 0-2 0 - 2 [facility] ([place]) Epithelial cells, ur 2-5(A) 0 - 2 [facility] ([place]) Urine 01/30/2017 1:45 PM CDT 01/30/2017 2:32 PM CDT us Hank Garibay MD LAB URINE ORDERABLES Final R esult [facility] ([place]) 1 [facility] Department [place] [address] * (ABNORMAL) Urinalysis reflex to microscopic and culture (01/30/2017 1:45 PM CDT) Color, ur Yellow Yellow [facility] ([place]) Clarity, ur Clear Clear [facility] ([place]) Specific gravity, ur 1.014 1.003 - 1.030 [facility] ([place]) Comment:Normal Ranges: 1.003 -1.030 pH, ur 6.0 4.5 - 8.0 [facility] ([place]) Comment:Normal ranges: 4.5-8 .0 Protein, ur ql Negative Negative mg/dL [facility] ([place]) Glucose, ur ql Negative Negative mg/dL [facility] ([place]) Ketones, ur Negative Negative [facility] ([place]) Bilirubin, ur Negative Negative [facility]) Blood, ur Negative Negative [facility]) Urobilinogen, ur 0.2 0.2 - 1.0 [facility] ([place]) Comment:Normal Ranges: 0.2-1 .0 EU/dL Nitrites, ur Negative Negative [facility] ([place]) Leukocyte esterase, ur Moderate(A) Negative [facility] ([place]) Urine 01/30/2017 1:45 PM CDT 01/30/2017 2:32 PM CDT Narrative [facility] ([place]) - 01/30/2017 2:48 PM CDT CLEAN VOID us Hank Garibay MD LAB MICROBIOLOGY - GENERAL O RDERABLES Final Result [facility] ([place]) 1 [facility] Department [place] [address] * DISCHARGE LABORATORY CUMULATIVE REPORT (01/30/2017 12:00 AM CDT) Narrative 01/30/2017 12:00 AM CDT Ordered by an unspecified provider. Historical Provider LAB BLOOD ORDERABLES Farzana l Result * ELECTROCARDIOGRAPHY (ECG) (01/30/2017) us Provider Scanning ECG ORDERABLES Final Result documented in this encounter Visit Diagnoses Not on filedocumented in this encounter Care Teams Forest Technology Professor Relationship Specialty Start Date End Date Pepper Morgan MD PCP - General 09/16/16 documented as of this encounter
--- OUTSIDE RECORDS SUMMARY | 2024-06-18 19:04 | XMS_ITS | Encounter Summary ---
Author Organization [facility] Address [address] [place] [address] Care Team Providers Care Nutritional Assistant Name Role Phone Pepper Morgan MD Primary Care Provider [phone]- [phone] Encounter Details Date Type Department Care Team (Late st Contact Info) Description 02/23/2017 Telephone [facility] Orthopedics and Sports Medicine [address] [place] [address] Hank Garibay MD [address] [place] [address] [address] [place] [address] Social History Tobacco Use Types Packs/Day Years Used Date Smoking Tobacco: Former Smokeless Tobacco: Never Alcohol Use Standard Drinks/Week Comments Yes 0 (1 standard drink = 0.6 oz pur e alcohol) Comments No Sex and Gender Information Value Date Recorded Sex Assigned at Not on file 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 Please call pharm and have them fill. * Telephone Encounter - Kellie Jackson Keely - 02/23/2017 11:25 AM CDT Pt is calling because she was seen by Susan on Monday and her leg was red. She was told if it got any worse, an antibiotic could be called in to [facility] in [place]. The pt said there is more red and thinks it needs to be sent. She is wanting a call at [phone] when that has been called in. documented in this encounter Plan of Treatment Not on file documented as of this encounter Visit Diagnoses Not on filedocumented in this encounter Care Teams Nutritional Assistant Relationship Specialty Start Date End Date Pepper Morgan MD PCP - General 09/16/16 documented as of this encounter
--- OUTSIDE RECORDS SUMMARY | 2024-06-18 19:04 | XMS_ITS | Encounter Summary ---
Author Organization [facility] Healthcare Address [address] [place] [address] Care Team Providers Care Emergency Department Physician Name Role Phone Pepper Morgan MD Primary Care Provider [phone]- [phone] Encounter Details Date Type Department Care Team (Latest Contact Info) Description 02/09/2017 3:40 PM CDT - 02/17/2017 2:45 PM CDT Hospital Encounter [facility] Transitional [facility] Unit [address] [place] [address] Franki Garibay MD [address] [place] [address] DR [facility] [address] [place] [address] Discharge Disposition: Discharge to home, home health skilled care Social History Tobacco Use Types Packs/Day Years Used Date Smoking Tobacco: Former Smokeless Tobacco: Never Alcohol Use Standard Drinks/Week Comments Yes 0 (1 standard drink = 0.6 oz pur e alcohol) Comments No Sex and Gender Information Value Date Recorded Sex Assigned at Not on file Legal Sex Female 4:33 AM [employer] Gender Identity Not on file Sexual Orientation Not on file documented as of this encounter Last Filed Vital Signs Vital Sign Reading Time Taken Comments Blood Pressure 153/65 02/17/2017 8:42 AM CDT Pulse 86 02/17/2017 8:42 AM CDT Temperature - - Respiratory Rate - - Oxygen Saturation - - Inhaled Oxygen Concentration - - Weight 93.9 kg (207 lb 0.2 oz) 02/16/2017 10:59 AM CDT Height 152.4 cm (5') 02/16/2017 10:59 AM CDT Body Mass Index 40.43 02/16/2017 10:59 AM CDT documented in this encounter Medications at Time of Discharge ascorbic acid (VITAMIN C) 500 mg tablet,chewable Take 1 tablet/chew tab (500 mg total) by mouth 2 (two) times a day. 60 tablet/chew tab 02/07/2017 7 aspirin 325 mg EC tablet Take 1 tablet (325 mg total) by mouth 2 (two) times a day for 28 days. 56 tablet 02/07/2017 0 aspirin 81 mg chewable tablet chew 1 [...] MOUTH TWICE DAILY 180 1 02/12/2014 7 ferrous sulfate 325 mg (65 mg of elemental iron) tabletIndication s:Iron Deficiency Anemia Take 1 tablet (65 mg of elemental iron total) by mouth daily with breakfast. 30 tablet 02/07/2017 7 fluticasone (FLONASE) 50 mcg/actuation nasal spray inhale 1 spray by intranasal route every day in each nostril 1 Bottle 3 06/22/2016 7 HYDROcodone-acet aminophen (NORCO) 5-325 mg per tabletIndication s:Pain 1-2 tabs Q4-6 hours prn pain 63 tablet 02/07/2017 7 melatonin 5 mg tablet 5 mg. 0 0 07/23/2014 7 meloxicam (MOBIC) 15 mg tablet Take 1 tablet (15 mg total) by mouth daily. 30 tablet 01/25/2017 7 morphine ER (MS CONTIN) 15 mg 12 hr tablet Take 1 tablet (15 mg total) by mouth 2 (two) times a day for 10 days. 20 tablet 02/07/2017 7 naproxen (ALEVE) 220 mg tablet take 2 tablet by oral route every day as needed 0 0 07/30/2014 7 ondansetron (ZOFRAN) 4 mg tablet Every 4-6 hours as needed 30 tablet 1 02/07/2017 7 oxyCODONE-acetam inophen (PERCOCET) 5-325 mg per tabletIndication s:Pain 0 02/08/2017 7 pramipexole (MIRAPEX) 0.125 mg tablet TAKE 1-2 TABLETS BY MOUTH EVERY DAY 180 1 05/09/2011 7 propranolol (INDERAL) 20 mg tablet TAKE 1 TABLET BY ORAL ROUTE 2 TIMES EVERY DAY 180 1 02/12/2014 7 senna-docusate (PERICOLACE) 8.6-50 mg 1-2 times daily as needed for constipation 60 tablet 1 02/07/2017 7 documented as of this encounter Discharge Disposition Disposition Code Departure Means Destination Discharge to home, home health skilled care documented in this encounter Consult Notes * Miscellaneous, Not In File - 02/10/2017 5:00 AM CDT CONSULTATION REPORT Patient: TESS KOO I. Service Date: 02/10/2017 Account: [id number] Room No: 105-01 : 1935 Patient Type: IP Attend.: Franki Garibay M.D. Admit Date: 02/09/2017 Consult: Susan Anaya M.D. Disch. Date: MEDICAL CONSULT CONSULTING PHYSICIAN Nery Anaya MD PRIMARY CARE PROVIDER Pepper Morgan MD REQUESTING PHYSICIAN FOR CONSULT Franki Garibay MD REASON FOR ADMISSION Postop left total knee replacement. HISTORY OF PRESENT ILLNESS This is a 81-year-old white female with a history of osteoarthritis, hypertension, GERD, chronic low back pain, history of melanoma, constipation, restless legs syndrome and essential tremor. She was admitted for an elective left total knee replacement on 02/[address] Garibay. Her postop course was uneventful other than a problem with urinary retention for which a Syed catheter was placed and remains in place at this time. Her blood pressure was well controlled on her usual home medications and she was having no particular symptoms. Postop lab work included hemoglobin of 12.1, sodium 137, potassium 4.6, chloride 101, CO2 of 22, glucose 126, BUN of 12 and creatinine of 0.52. Urine culture at the time of the retention was negative. At the time of discharge the patient was felt to still require additional therapy, and for that reason was transferred to the alf unit for additional PT and OT prior to returning home to her [facility] where she lives by herself. Since admission the patient has been afebrile, O2 sat is 95% on room air and urine is draining clear yellow urine. REVIEW OF SYSTEMS Patient currently denies any weakness, fatigue, malaise. Appetite and weight have been good. She has no fever, chills. Skin without rashes, bruising, or bleeding. She denies headaches, dizziness, weakness, tremor, or stroke like symptoms. No vision or hearing issues. She denies any cough, cold, sinus, sore throat, or sputum production. No chest pain, palpitations, edema, shortness of breath, wheezing. Patient denies nausea, vomiting, diarrhea, constipation, blood in stool, change in stool, or abdominal pain. As mentioned, Syed catheter is in place. She has no urinary symptoms at this time. As for her pain, the patient states she is having none whatsoever. She is quite concerned regarding narcotics she is currently receiving because she is aware that it is making her confused and quite somnolent and would like these discontinued. She denies any mood issues. SOCIAL HISTORY The patient is . No history of tobacco, alcohol, or drug use. She previously worked in [employer]. She currently lives in a condominium. Her daughter lives with her. She has a wheeled walker at home. She is G3, P3, A0. PAST MEDICAL HISTORY Includes: 1. Osteoarthritis status post bilateral knee replacements at this time. 2. Hypertension. 3. GERD. 4. Chronic low back pain. At home takes Aleve only. 5. History of melanoma left elbow. No chemo or radiation required postop. 6. Chronic constipation, on MiraLAX at home. 7. Restless legs syndrome, on pramipexole at home. 8. Essential tremor. Taking Inderal without difficulty. 9. Recent urinary retention. PAST SURGICAL HISTORY Includes: 1. Right total knee replacement in April 2014. 2. Abdominal herniorrhaphy. 3. Bilateral cataracts. 4. Cholecystectomy 1994. 5. Gastric banding 1984. 6. Left upper extremity lymph node resection and resection of melanoma in 1975. 7. Previous right arthroscopy of the knee in 2003 prior to the above- mentioned replacement therapy and most recent left total knee replacement February 07, 2017. ALLERGIES INCLUDE LISINOPRIL, CELEBREX, SULFA. CURRENT MEDICATIONS Include: 1. Norvasc 2.5 mg substituted for Plendil. 2. Vitamin C 500 mg b.i.d. 3. Ecotrin 325 b.i.d. 4. Vitamin D3, 2000 units daily. 5. Pepcid 20 mg a day. 6. Feosol 325 mg daily. 7. Mirapex 0.125 mg daily. 8. Inderal 20 mg b.i.d. 9. MSER 30 mg b.i.d. 10. Percocet 5/325 every 6 hours p.r.n. PHYSICAL EXAM At the time of my evaluation found the patient to be alert, awake, but very somnolent and difficult to arouse. SHEENT: Skin was warm and dry. The left knee incision is dry and intact with surgical dressing in place. No evidence of cellulitis. There were no other skin issues noted. Head was atraumatic, normocephalic. Pupils equal, round, reactive to light and accommodation. Extraocular muscles intact without nystagmus. Oral mucosa pink, moist without lesions. Dentition revealed the patient to be edentulous with well-fitting dentures in place. Neck is nontender. Full range of motion. Thyroid normal. Carotids 2+ and equal with good upstrokes. Trachea was in the midline. There was no adenopathy. Lungs: Were clear. Cardiac: Regular without any murmurs, S3s, or S4s heard. Abdomen: Soft, nontender, nondistended. Positive bowel sounds. There were no masses, hernias, bruits, organomegaly, rebound, or guarding. Extremity, Bone and Joint: No edema, cyanosis, or clubbing. There was no calf tenderness noted. Peripheral pulses 2+ and equal. Neurologically: Patient was oriented x4. Speech was clear. Cranial nerves 2-12 intact. Motor, sensory, coordination all tested at the bedside with a nonfocal symmetric exam. Patient was not ambulated. IMPRESSION 1. Status post left total knee replacement 02/07. The patient is currently on aspirin b.i.d. for DVT prophylaxis. She is quite somnolent and actually refusing any further narcotics due to concerns with confusion and excessive sedation. She requests Tylenol only. As a result Percocet and MSER will be discontinued. Tramadol 50 q.6 p.r.n. will be made available and Tylenol as well. Patient will call immediately if she has any worsening of her pain requiring additional medication. PT and OT have been ordered and will start aggressively today. The patient has a wheeled walker at home. Most likely she will return to her condominium with the assistance of her daughter at discharge. 2. Hypertension, well controlled on Norvasc in place of Plendil and Inderal. 3. Gastroesophageal reflux disease. Continue Pepcid therapy. 4. Chronic low back pain. As mentioned, the patient uses Aleve at home. Will most likely resume that at discharge once her aspirin therapy has concluded. 5. History of melanoma of the left elbow, stable with no evidence of recurrence. 6. Constipation. Will continue MiraLAX b.i.d. and senna p.r.n. 7. Restless legs syndrome. Continue pramipexole in the evenings as per home regimen. 8. Essential tremor. Continue Inderal. 9. Urinary retention postop. The patient continues to have a Syed in place. Flomax will be started 0.4 mg each evening and the Syed will be discontinued tomorrow. Following that a voiding trial will be done, bladder scan accomplished and further evaluation if needed. 10. Code status 1. The patient has requested this and this will certainly be honored per her request. Electronically Authenticated and Edited by: Nery Anaya MD On 02/12/2017 09:57 PM CDT Susan Anaya M.D. /ams TD: 02/10/2017 12:08 CC: Kyrie Juarez M.D. documented in this encounter Plan of Treatment Not on file documented as of this encounter Procedures Procedure Name Priority Date/Time Associated Diagnosis Comments LOWER EXTREMITY VENOUS DOPPLER Routine 02/17/2017 2:52 PM CDT DISCHARGE LABORATORY CUMULATIVE REPORT 02/17/2017 12:00 AM CDT EGFR Today 02/14/2017 4:49 AM CDT DIFFERENTIAL AUTO Today 02/14/2017 4:4 9 AM CDT CBC WITH AUTO DIFFERENTIAL Today 02/14/2017 4:49 AM CDT RENAL FUNCTION PANEL Today 02/14/2017 4:49 AM CDT EGFR Routine 02/12/2017 5:06 AM CDT BASIC METABOLIC PANEL Routine 02/12/2017 5:06 AM CDT documented in this encounter Results * LOWER EXTREMITY VENOUS DOPPLER (02/17/2017 2:52 PM CDT) Anatomical Region Laterality Modality N/A Ultrasound 02/17/2017 2:52 PM CDT Narrative 02/17/2017 2:52 PM CDT VL/US Venous Low Ext L ??Acc#: ??[id number] DATE OF EXAM: ??Feb ??2016 ?? VL/US Venous Low Ext L HISTORY: left leg pain and edema. Knee replacement surgery 02/07/2017 COMPARISON: None available. FINDINGS: High resolution grayscale real-time examination with color flow Doppler was performed upon deep veins of left lower extremity. Common femoral, superficial femoral, popliteal, posterior tibial, peroneal and greater saphenous veins exhibit spontaneous mexp-td-farv flow and good compressibility without intraluminal filling defects. IMPRESSION: NORMAL LEFT LOWER EXTREMITY VENOUS DOPPLER SONOGRAM. Electronically signed by: Yaron Johnson Jr., M.D. Interpreting Physician: ??DR YARON JOHNSON M.D. ??Read on: ??Sep ??2016 10:25A Transcribed by: ??PSC ??On: Feb ??2016 10:23A Approved Electronically by: ??ALEX Mittal, DR JONES ??on: ??Sep ??2016 10:23A Ordering DR: SUSAN ANAYA Attending DR: FRANKI GARIBAY Attending: ??FRANKI GARIBAY Requesting: ??SUSAN ANAYA Requesting Fax: ??-- Attending Fax: ??[phone] Attending ID: ??[id number] Requesting ID: ??[id number] Report To 1 ID: ??[id number] Report To 1 Name: ??FRANKI GARIBAY Report To 1 FAX: ??[phone] NextGen Order #: ?? Procedure Note Miscellaneous, Not In File / Provider, MD Latasha - 02/17/2017 VL/US Venous Low Ext L Acc#: [id number] DATE OF EXAM: Feb 17 2017 VL/US Venous Low Ext L HISTORY: left leg pain and edema. Knee replacement surgery 02/07/2017 COMPARISON: None available. FINDINGS: High resolution grayscale real-time examination with color flow Doppler was performed upon deep veins of left lower extremity. Common femoral, superficial femoral, popliteal, posterior tibial, peroneal and greater saphenous veins exhibit spontaneous hjep-sd-yuzy flow and good compressibility without intraluminal filling defects. IMPRESSION: NORMAL LEFT LOWER EXTREMITY VENOUS DOPPLER SONOGRAM. Electronically signed by: Yaron Johnson Jr., M.D. Interpreting Physician: DR YARON JOHNSON M.D. Read on: Feb 17 2017 10:25A Transcribed by: PSC On: Feb 17 2017 10:23A Approved Electronically by: DR YARON JOHNSON M.D. on: Feb 17 2017 10:23A Ordering DR: SUSAN ANAYA Attending DR: FRANKI GARIBAY Attending: FRANKI GARIBAY Requesting: SUSAN ANAYA Requesting Fax: -- Attending Attending ID: [id number] Requesting ID: [id number] Report To 1 ID: [id number] Report To 1 Name: FRANKI GARIBAY Report To 1 FAX: [phone] NextGen Order #: [id number] Susan Anaya MD IMG US PROCEDURES Final Result * DISCHARGE LABORATORY CUMULATIVE REPORT (02/17/2017 12:00 AM CDT) Narrative 02/17/2017 12:00 AM CDT Ordered by an unspecified provider. Historical Provider LAB BLOOD ORDERABLES Farzana l Result * eGFR (02/14/2017 4:49 AM CDT) eGFR >60 mL/min/1.7 3 m2 [facility] ([place]) Comment: Interpretive Data Reference Interval Normal ?>/= 90 mL/min/1.73m2 Mildly decreased* ? 60 - 89 mL/min/1.73m2 Mildly to moderately decreased ?45 - 59 mL/min/1.73m2 Moderately to severely decreased ??30 - 44 mL/min/1.73m2 Severely decreased ?15 - 29 mL/min/1.73m2 Kidney Failure ?< 15 ??mL/min/1.73m2 *Relative to young adult level If -[place] multiply value by 1.16. Estimated glomerular filtration [...] was last reviewed 2016. Blood specimen (specimen) 02/14/2017 4:49 AM CDT 02/14/2017 5:20 AM CDT us Franki Garibay MD LAB BLOOD ORDERABLES Final R esult [facility] ([place]) [address] Department [place] [address] * (ABNORMAL) Renal function panel (02/14/2017 4:49 AM CDT) Sodium 138 135 - 145 mmol/L [facility] ([place]) Potassium 3.8 3.5 - 5.1 mmol/L [facility] ([place]) Chloride 98 97 - 110 mmol/L [facility] ([place]) CO2 31 22 - 32 mmol/L [facility] ([place]) Anion gap 9 8 - 16 mmol/L [facility] ([place]) Glucose 98 70 - 199 mg/dL [facility] ([place]) [...] data was last revised on 2014. BUN 17.1 8.0 - 25.0 mg/dL [facility] ([place]) Creatinine 0.55(L) 0.60 - 1.10 mg/dL [facility] ([place]) BUN/creat ratio 31(H) 10 - 20 [facility] ([place]) Calcium 8.7 8.6 - 10.2 mg/dL [facility] ([place]) Phosphorus, pl 3.2 2.5 - 4.5 mg/dL [facility] ([place]) Albumin 2.7(L) 3.6 - 5.0 g/dL [facility] ([place]) Blood specimen (specimen) 02/14/2017 4:49 AM CDT 02/14/2017 5:20 AM CDT Franki Garibay MD LAB BLOOD ORDERABLES Final R esult [facility] ([place]) [address] Department [place] [address] * (ABNORMAL) Differential, auto (02/14/2017 4:49 AM CDT) Neutrophil pct 64.2 44.0 - 80.0 % [facility] ([place]) Imm gran pct 1.8(H) 0.0 - 1.0 % [facility] ([place]) Lymphocyte pct 14.6 13.0 - 44.0 % [facility] ([place]) Monocyte pct 12.3(H) 2.0 - 11.0 % [facility] ([place]) Eosinophil pct 6.5(H) 0.0 - 6.0 % [facility] ([place]) Basophil pct 0.6 0.0 - 3.0 % [facility] ([place]) Neutrophil abs 5.14 1.60 - 7.00 K/cumm [facility] ([place]) Imm gran abs 0.14 0.00 - 0.20 K/cumm [facility] ([place]) Lymphocyte abs 1.17 0.50 - 4.30 K/cumm [facility] ([place]) Monocyte abs 0.98 0.10 - 1.00 K/cumm [facility] ([place]) Eosinophil abs 0.52 0.00 - 0.60 K/cumm [facility] ([place]) Basophil abs 0.05 0.00 - 0.30 K/cumm [facility] ([place]) Blood specimen (specimen) 02/14/2017 4:49 AM CDT 02/14/2017 5:19 AM CDT Franki Garibay MD LAB BLOOD ORDERABLES Final R esult [facility] ([place]) [address] Department [place] [address] * (ABNORMAL) CBC with auto differential (02/14/2017 4:49 AM CDT) [facility] WBC 8.00 3.80 - 9.80 K/cumm [facility] ([place] RBC 3.86(L) 3.90 - 5.00 M/cumm [facility] ([place]) Hgb 10.9(L) 12.1 - 15.1 g/dL [facility] ([place]) Hct 32.5(L) 36.1 - 44.3 % [facility] ([place]) MCV 84.2 80.0 - 100.0 fL [facility] ([place]) MCH 28.2 26.7 - 33.7 pg [facility] ([place]) MCHC 33.5 32.7 - 36.0 g/dL [facility] RDW CV 14.3 11.5 - 14.6 % [facility] Plt 304 140 - 440 K/cumm [facility] ([place]) MPV 9.2 8.0 - 12.[address] [facility] ([place] NRBC 0.0 0.0 - 0.0 % [facility] ([place]) NRBC abs 0.00 0.00 - 0.00 K/cumm [facility] ([place] Blood specimen (specimen) 02/14/2017 4:49 AM CDT 02/14/2017 5:19 AM CDT us Franki Garibay MD LAB BLOOD ORDERABLES Final R esult [facility] ([place] [address] Department [place] [address] * eGFR (02/12/2017 5:06 AM CDT) [facility] eGFR >60 mL/min/1.[address] [facility] ([place] Comment: Interpretive Data Reference Interval Normal ?>/= 90 mL/min/1.73m2 Mildly decreased* ? 60 - 89 mL/min/1.73m2 Mildly to moderately decreased ?45 - 59 mL/min/1.73m2 Moderately to severely decreased ??30 - 44 mL/min/1.73m2 Severely decreased ?15 - 29 mL/min/1.73m2 Kidney Failure ?< 15 ??mL/min/1.73m2 *Relative to young adult level If -[place] multiply value by 1.16. Estimated glomerular filtration [...] was last reviewed 2016. Blood specimen (specimen) 02/12/2017 5:06 AM CDT 02/12/2017 5:39 AM CDT Susan Anaya MD LAB BLOOD ORDERABLES Fin al Result [facility] ([place]) [address] Department of Laboratories [place], [place] [id number] * (ABNORMAL) Basic metabolic panel (02/12/2017 5:06 AM CDT) Sodium 134(L) 135 - 145 mmol/L [facility] ([place]) Potassium 4.0 3.5 - 5.1 mmol/L [facility] ([place] Chloride 93(L) 97 - 110 mmol/L [facility] ([place]) CO2 31 22 - 32 mmol/L [facility] ([place]) Anion gap 10 8 - 16 mmol/L [facility] ([place]) Glucose 102 70 - 199 mg/dL [facility] ([place]) Comment: Interpretive Data Note:The glucose [...] data was last revised on 2014. BUN 17.8 8.0 - 25.0 mg/dL [facility] ([place]) Creatinine 0.47(L) 0.60 - 1.10 mg/dL [facility] ([place]) Calcium 9.0 8.6 - 10.2 mg/dL [facility] ([place]) BUN/creat ratio 38(H) 10 - 20 [facility] ([place]) Blood specimen (specimen) 02/12/2017 5:06 AM CDT 02/12/2017 5:39 AM CDT us Susan Anaya MD LAB BLOOD ORDERABLES Fin al Result [facility] ([place]) [address] Department [place] [address] documented in this encounter Visit Diagnoses Not on filedocumented in this encounter Care Teams Emergency Department Physician Relationship Specialty Start Date End Date Pepper Morgan MD PCP - General 09/16/16 documented as of this encounter
--- OUTSIDE RECORDS SUMMARY | 2024-06-18 19:04 | XMS_ITS | Encounter Summary ---
Author Organization [facility] Address [address] [place] [address] Phone Care Team Providers Care Linux Unix System Administrator Name Role Phone Pepper Morgan MD Primary Care Provider + [phone] Hank Garibay MD Unavailable [phone] Jacky Murry MD Unavailable [phone] Encounter Details Date Type Department Care Team (Late st Contact Info) Description 04/04/2017 8:40 AM CDT Office Visit [facility] [address] [place] [address] Pepper Morgan MD [address] [place] [address] Annual physical exam (Primary Dx); Chronic pain disorder; Insomnia, persistent; Obesity (BMI 30-39.9); Knee joint replacement status, bilateral; Chronic GERD; Needs flu shot; History of melanoma Social History Tobacco Use Types Packs/Day Years Used Date Smoking Tobacco: Former Smokeless Tobacco: Never Alcohol Use Standard Drinks/Week Comments Yes 0 (1 standard drink = 0.6 oz pur e alcohol) Comments No Sex and Gender Information Value Date Recorded Sex Assigned at Not on file Legal Sex Female 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 Gender Identity Not on file Sexual Orientation Not on file documented as of this encounter Last Filed Vital Signs Vital Sign Reading Time Taken Comments Blood Pressure 122/88 04/04/2017 8:32 AM CDT Pulse 49 04/04/2017 8:32 AM CDT Temperature 36.6 ??C (97.9 ??F) 04/04/2017 8:32 AM CD T Respiratory Rate 16 04/04/2017 8:32 AM CDT Oxygen Saturation 97% 04/04/2017 8:32 AM CDT Inhaled Oxygen Concentration - - Weight 88 kg (194 lb) 04/04/2017 8:32 AM CDT Height 154.9 cm (5' 1 ) 04/04/2017 8:32 AM CDT Body Mass Index 36.66 04/04/2017 8:32 AM CDT documented in this encounter Patient Instructions * Patient Instructions* Pepper Morgan MD - 04/04/2017 8:40 AM CDT Patient Care Team: Pepper Morgan MD as PCP - General Hank Garibay MD as Surgeon (Orthopedic Surgery) Jacky Murry MD (Ophthalmology) Return in about 6 months (around 09/19/2017) for MD or HARMONICA MAKER recheck problems and meds. Orders Placed This Encounter Procedures ? ? Fluzone Quad (5 ml vial) 3 yrs & older IM A brief review of all your problems, medications, and orders from today Problem List Items Addressed This Visit Chronic GERD (Chronic) Relevant Medications famotidine-Ca carb-mag hydrox (PEPCID COMPLETE) 10-800-165 mg chewable tablet Insomnia, persistent Chronic pain disorder Relevant Medications DULoxetine DR (CYMBALTA) 20 mg capsule Knee joint replacement status, bilateral Obesity (BMI 30-39.9) Other Visit Diagnoses Annual physical exam - Primary Needs flu shot Relevant Orders Fluzone Quad (5 ml vial) 3 yrs & older IM (Completed) For your records I have provided this [...] visit again. Refills were sent electronically by [facility] to your pharmacy today to PUT ON [...] today. These issues require your attention: Annual exam Annual Exam finds the need for diet [...] health are documented on this information sheet. Chronic pain disorder Trial Cymbalta 20 milligram every morning for 1 week then you may increase to either 1 tablet twicedaily are 2 tablets in the morning. I am hoping this will help with the low back pain and with the sleep disorder. Contact me for refills of the dosage that works if this is helpful for you. We will re-evaluate the medicine again in 6 months unless you want to see me sooner Flattened arches are the main cause of knee and back pain problems Flat feet cause arthritis destruction of the foot and ankle increasing pain to the knee hip and back. Avoid barefoot walking, arch supports are recommended. A large variety of arch options are available at [facility] in [facility]. Use these arch supports in wide toebox shoes every day for work and in the slippers at home. If the ankle continues to hurt despite use of the arch then I recommend purchase of a Greg hhhypy-di-[id number] ankle support available online documented in this encounter Ordered Prescriptions Prescription Sig Dispense Quantity Refills Last Filled Start Date End Date DULoxetine DR (CYMBALTA) 20 mg capsuleIndications :Chronic pain disorder Take 1 capsule (20 mg total) by mouth daily. 60 capsule 1 04/04/2017 8 documented in this encounter Progress Notes * Pepper Morgan MD - 04/04/2017 8:40 AM CDT ASSESSMENT AND PLAN Patient Instructions Patient Care Team: Pepper Morgan MD as PCP - General Hank Garibay MD as Surgeon (Orthopedic Surgery) Jacky Murry MD (Ophthalmology) Return in about 6 months (around 09/19/2017) for MD or HARMONICA MAKER recheck problems and meds. Orders Placed This Encounter Procedures ? ? Fluzone Quad (5 ml vial) 3 yrs & older IM A brief review of all your problems, medications, and orders from today Problem List Items Addressed This Visit Chronic GERD (Chronic) Relevant Medications famotidine-Ca carb-mag hydrox (PEPCID COMPLETE) 10-800-165 mg chewable tablet Insomnia, persistent Chronic pain disorder Relevant Medications DULoxetine DR (CYMBALTA) 20 mg capsule Knee joint replacement status, bilateral Obesity (BMI 30-39.9) Other Visit Diagnoses Annual physical exam - Primary Needs flu shot Relevant Orders Fluzone Quad (5 ml vial) 3 yrs & older IM (Completed) For your records I have provided this [...] visit again. Refills were sent electronically by [facility] to your pharmacy today to PUT ON [...] today. These issues require your attention: Annual exam Annual Exam finds the need for diet [...] health are documented on this information sheet. Chronic pain disorder Trial Cymbalta 20 milligram every morning for 1 week then you may increase to either 1 tablet twicedaily are 2 tablets in the morning. I am hoping this will help with the low back pain and with the sleep disorder. Contact me for refills of the dosage that works if this is helpful for you. We will re-evaluate the medicine again in 6 months unless you want to see me sooner Flattened arches are the main cause of knee and back pain problems Flat feet cause arthritis destruction of the foot and ankle increasing pain to the knee hip and back. Avoid barefoot walking, arch supports are recommended. A large variety of arch options are available at [facility] in [facility]. Use these arch supports in wide toebox shoes every day for work and in the slippers at home. If the ankle continues to hurt despite use of the arch then I recommend purchase of a Greg fykufu-dj-[id number] ankle support available online CHIEF COMPLAINT No chief complaint on file. HISTORY OF PRESENT ILLNESS Tess Benedict returns today for Annual Medicare Examination, Medication Refill Management, discussion of Chronic Medical Problems associated orders and medications as well as Her 2 concerns detailed in this HPI and the AVS note sent home with her. Comprehensive chart reconciliation was required in discussion with charmaine the new inexio system. Tess reports feeling fair. Issues discussed today included all new lab orders for the next follow-up visit, results of currentlab work, Annual Health Maintenance Recommendations ( Documented on the separately scanned in AMS Annual Physical Exam Worksheet ) and a review of active and discontinued medication prescriptions Further historical information about problems: 1. Annual physical exam Not interested in the examination or treatments of an annual physical examination, we negotiated which she would go through today please refer to the annual physical paperwork 2. Needs flu shot Interested in flu shot today - Fluzone Quad (5 ml vial) 3 yrs & older IM 3. Chronic GERD One Pepcid Complete at night which blocks or acid reflux through the night 4. Insomnia, persistent Sleeping poorly developing pain in the night with her back 5. Chronic pain disorder Agrees to try Cymbalta for her chronic back knee and ankle pain - DULoxetine DR (CYMBALTA) 20 mg capsule; Take 1 capsule (20 mg total) by mouth daily. Dispense: 60 capsule; Refill: 1 PAST MEDICAL HISTORY Past Medical History: Diagnosis Date ??? HX OTHER MEDICAL 1992 strangulated hernia ??? HX OTHER MEDICAL back pain; Comments: APO 01/13/2014 - ??? HX OTHER MEDICAL melanoma surgery; Comments: APO 01/13/2014 - ??? HX OTHER MEDICAL gastroplasty; Comments: APO 01/13/2014 - ??? Malignant melanoma (CMS/HCC) Malignant melanoma; Comments: APO 01/13/2014 - ??? Superficial basal cell carcinoma 2003 Cancer, basal Cell FAMILY HISTORY family history includes Arthritis in her other; Cancer in her other. SOCIAL HISTORY Social History Substance Use Topics ??? Smoking status: Former Smoker ??? Smokeless tobacco: Never Used ??? Alcohol use Yes THE REVIEW OF SYSTEMS Review of Systems [...] and vaginal discharge. Musculoskeletal: Positive for arthralgias (Ankles and feet) and back pain. Negative for joint swelling and myalgias. Skin: Negative for color change and rash. Allergic/Immunologic: Negative for environmental allergies. Neurological: Negative for dizziness, weakness and headaches. Hematological: Negative for adenopathy. Does not bruise/bleed easily. Psychiatric/Behavioral: Positive for agitation ( irritated about a office visit to get refills before this annual physical cup overall frustrated with increasing pain after her knee surgery, her bodydid not like her pushing through her exercise and activity). Negative for behavioral problems and sleep disturbance. The patient is not nervous/anxious. MEDICATIONS CHANGED / CLEANED UP THIS VISIT Medications Discontinued During This Encounter Medication Reason ??? naproxen (ALEVE) 220 mg tablet Contact Move - Error ??? melatonin 5 mg tablet Contact Move - Error ??? biotin 10,000 mcg capsule Contact Move - Error ??? cholecalciferol (VITAMIN D-3) 2,000 unit capsule Contact Move - Error MEDICATION LIST BEFORE THIS VISIT Current Outpatient Prescriptions on File Prior to Visit Medication Sig ??? aspirin 81 mg tablet Take 81 mg by mouth daily. ??? felodipine (PLENDIL) 2.5 mg 24 hr tablet Take 1 tablet (2.5 mg total) by mouth 2 (two) times a day. ??? pramipexole (MIRAPEX) 0.125 mg tablet Take 1-2 tablets by mouth every day ??? propranolol (INDERAL) 20 mg tablet Take 1 tablet (20 mg total) by mouth 2 (two) times a day. ??? [DISCONTINUED] biotin 10,000 mcg capsule i qd ??? [DISCONTINUED] cholecalciferol (VITAMIN D-3) 2,000 unit capsule take 1 by Oral route every day ??? [DISCONTINUED] melatonin 5 mg tablet 5 mg. ??? [DISCONTINUED] naproxen (ALEVE) 220 mg tablet take 2 tablet by oral route every day as needed (Patient not taking: Reported on 02/22/2017 ) No current facility-administered medications on file prior to visit. MEDICATION LIST AT CONCLUSION OF THIS VISIT Current Outpatient Prescriptions: ??? famotidine-Ca carb-mag hydrox (PEPCID COMPLETE) 10-800-165 mg chewable tablet ??? aspirin 81 mg tablet ??? DULoxetine DR (CYMBALTA) 20 mg capsule ??? felodipine (PLENDIL) 2.5 mg 24 hr tablet ??? pramipexole (MIRAPEX) 0.125 mg tablet ??? propranolol (INDERAL) 20 mg tablet Current Outpatient Prescriptions Ordered in [facility] Medication Sig Dispense Refill ??? famotidine-Ca carb-mag hydrox (PEPCID COMPLETE) 10-800-165 mg chewable tablet Take 1 tablet by mouth daily as needed for heartburn. ??? aspirin 81 mg tablet Take 81 mg by mouth daily. ??? DULoxetine DR (CYMBALTA) 20 mg capsule Take 1 capsule (20 mg total) by mouth daily. 60 capsule 1 ??? felodipine (PLENDIL) 2.5 mg 24 hr tablet Take 1 tablet (2.5 mg total) by mouth 2 (two) times a day. 180 tablet 1 ??? pramipexole (MIRAPEX) 0.125 mg tablet Take 1-2 tablets by mouth every day 90 tablet 1 ??? propranolol (INDERAL) 20 mg tablet Take 1 tablet (20 mg total) by mouth 2 (two) times a day. 180 tablet 1 No current [facility]-ordered facility-administered medications on file. ALLERGIES is allergic to celecoxib; sulfa (sulfonamide antibiotics); lisinopril; amlodipine; and scopolamine. PHYSICAL EXAM body mass index is 36.66 kg/m??. height is 154.9 cm (5' 1 ) and weight is 88 kg (194 lb). Her temperature is 36.6 ??C (97.9 ??F). Her blood pressure is 122/88 and her pulse is 49 (abnormal). Her respiration is 16 and oxygen saturation is 97%. Physical Exam Constitutional: She is oriented to person, place, and time. She appears well- developed and well-nourished. No distress. HENT: Right Ear: External ear normal. Left Ear: External ear normal. Nose: Nose normal. Mouth/Throat: Oropharynx is clear and moist. No oropharyngeal exudate. Eyes: Conjunctivae and EOM are normal. Pupils are equal, round, and reactive to light. No scleral icterus. Neck: Neck supple. No JVD present. No thyromegaly present. Cardiovascular: Normal rate, regular rhythm, normal heart sounds and intact distal pulses. Pulmonary/Chest: Effort normal and breath sounds normal. Abdominal: Soft. Bowel sounds are normal. She exhibits no mass. There is no splenomegaly. There is no tenderness. No hernia. Genitourinary: Rectal exam shows no mass, no tenderness and guaiac negative stool. Pelvic exam was performed with patient in the knee-chest position. Uterus is not tender. Right adnexum displays no mass and no tenderness. Left adnexum displays no mass and no tenderness. Genitourinary Comments: Breast examination: Bilateral breast examination healthy without mass or axillary adenopathy Pelvic examination: Perineal tissues healthy with intact Kegel response No cystocele No rectocele Rectal examination without mass Musculoskeletal: Normal range of motion. She exhibits no edema, tenderness or deformity. Lymphadenopathy: She has no cervical adenopathy. She has no axillary adenopathy. Right: No inguinal adenopathy present. Left: No inguinal adenopathy present. Neurological: She is alert and oriented to person, place, and time. She has normal reflexes. No cranial nerve deficit or sensory deficit. She exhibits normal muscle tone. Coordination normal. She displays no Babinski's sign on the right side. She displays [...] 03/07/2017 0.7 ??? Lymphocytes 03/07/2017 26.0 ??? Monos 03/07/2017 8.6 ??? Eosinophils 03/07/2017 5.4 ??? Basophils 03/07/2017 0.8 ??? Neutrophil absolute 03/07/2017 4.15 ??? Immature granulocyte, abs 03/07/2017 0.05 ??? Lymphocytes, abs 03/07/2017 1.84 ??? Monos, abs 03/07/2017 0.61 ??? Eosinophils, abs 03/07/2017 0.38 ??? Basophils, abs 03/07/2017 0.06 [...] ??? BUN/creat ratio 02/12/2017 38* ? ? eGFR 02/12/2017 >60 ??? WBC 02/14/2017 8.00 ??? [...] 02/14/2017 1.8* ??? Lymphocytes 02/14/2017 14.6 ??? Monos 02/14/2017 12.3* ??? Eosinophils 02/14/2017 6.5* ??? Basophils 02/14/2017 0.6 ??? Neutrophil absolute 02/14/2017 5.14 ??? Immature granulocyte, abs 02/14/2017 0.14 ??? Lymphocytes, abs 02/14/2017 1.17 ??? Monos, abs 02/14/2017 0.98 ??? Eosinophils, abs 02/14/2017 0.52 ??? Basophils, abs 02/14/2017 0.05 ??? Sodium 02/14/2017 138 ??? Potassium, pl 02/14/2017 3.8 ??? Chloride 02/14/2017 98 ??? CO2 02/14/2017 31 ??? Anion Gap 02/14/2017 9 ??? Glucose 02/14/2017 98 ??? BUN 02/14/2017 17.1 ??? Creatinine 02/14/2017 0.55* ??? BUN/creat ratio 02/14/2017 31* ??? Calcium 02/14/2017 8.7 ??? Phosphorus, pl 02/14/2017 3.2 ??? Albumin 02/14/2017 2.7* ? ? eGFR 02/14/2017 >60 Admission on 02/07/2017, Discharged on [...] 02/08/2017 0.4 ??? Lymphocytes 02/08/2017 5.5* ??? Monos 02/08/2017 4.4 ??? Eosinophils 02/08/2017 0.1 ??? Basophils 02/08/2017 0.2 ??? Neutrophil absolute 02/08/2017 11.05* ??? Immature granulocyte, abs 02/08/2017 0.05 ??? Lymphocytes, abs 02/08/2017 0.68 ??? Monos, abs 02/08/2017 0.55 ??? Eosinophils, abs 02/08/2017 0.01 ??? Basophils, abs 02/08/2017 0.02 ??? Sodium 02/08/2017 137 ??? Potassium, pl 02/08/2017 4.4 ??? Chloride 02/08/2017 101 ??? CO2 02/08/2017 22 ??? Anion Gap 02/08/2017 14 ??? Glucose 02/08/2017 126 ??? BUN 02/08/2017 11.7 ??? Creatinine 02/08/2017 0.52* ??? Calcium 02/08/2017 8.5* ??? BUN/creat ratio 02/08/2017 22* ? ? eGFR 02/08/2017 >60 ??? Report 02/08/2017 Value:Final Report: Insignificant growth based on current [...] on 01/17/2017 Component Date Value ??? Glucose 03/21/2017 90 ??? BUN 03/21/2017 19 ??? Creatinine 03/21/2017 0.72 ??? eGFR NON-AFR. MAURITIAN 03/21/2017 80 ??? EGFR 03/21/2017 92 ??? BUN/creat ratio 03/21/2017 NOT APPLICABLE ??? Sodium 03/21/2017 140 ??? Potassium, pl 03/21/2017 4.3 ??? Chloride 03/21/2017 103 ??? CO2 03/21/2017 29 ??? Calcium 03/21/2017 9.4 ??? Protein, sr 03/21/2017 6.4 ??? Albumin 03/21/2017 3.8 ??? Globulin 03/21/2017 2.6 ??? Alb/glob ratio 03/21/2017 1.5 ??? Bilirubin 03/21/2017 0.5 ??? Alk phos 03/21/2017 103 ??? AST 03/21/2017 9* ??? ALT (SGPT) 03/21/2017 7 ??? LDL, direct 03/21/2017 111* Comprehensive physical examination was completed today and specifics of the testing and counseling are recorded on the scanned Comprehensive Yearly Physical Exam Worksheet. . Tess Chente Marichuy personal health goals were negotiated and agreed [...] in the After Visit Summary = VS. ICD10 CODES FROM CARE PROVIDED TODAY ICD-9-CM ICD-10-CM 1. Annual physical exam V70.0 Z00.00 2. Chronic pain disorder 338.[address] (CYMBALTA) 20 mg capsule 3. Insomnia, persistent 307.42 G47.00 4. Obesity (BMI 30-39.9) 278.00 E66.9 5. Knee joint replacement status, bilateral V43.65 Z96.653 6. Chronic GERD 530.81 K21.9 7. Needs flu shot V04.81 Z23 Fluzone Quad (5 ml vial) 3 yrs & older IM PATIENT CARE TEAM FOR Tess Benedict Patient Care Team: Pepper Morgan MD as PCP - General Hank Garibay MD as Surgeon (Orthopedic Surgery) Jacky Murry MD (Ophthalmology) documented in this encounter Plan of Treatment Not on file documented as of this encounter Visit Diagnoses Diagnosis Annual physical exam- Primary Routine general medical examination at a health care facility Chronic pain disorder Chronic pain syndrome Insomnia, persistent Obesity (BMI 30-39.9) Knee joint replacement status, bilateral Chronic GERD Needs flu shot Need for prophylactic vaccination and inoculation against influenza History of melanoma Personal history of malignant melanoma of skin documented in this encounter Discontinued Medications Medication Sig Discontinue Reason Start Date End Da te naproxen (ALEVE) 220 mg tablet take 2 tablet by oral route every day as needed Contact Move - Error 07/30/2014 04/04/2017 melatonin 5 mg tablet 5 mg. Contact Move - Error 07/23/201404/04 biotin 10,000 mcg capsule i qd Contact Move - Error 09/26/2016 04/04/2017 cholecalciferol (VITAMIN D-3) 2,000 unit capsule take 1 by Oral route every day Contact Move - Error 02/18/2015 04/04/2017 documented as of this encounter Historical Medications * This list may reflect changes made after this encounter. famotidine-Ca carb-mag hydrox (PEPCID COMPLETE) 10-800-165 mg chewable tablet Take 1 tablet by mouth daily as needed for heartburn. 07/01/2019 added in this encounter Orders Immunization/Injection Count Last Ordered Date First Ordered Date FLU VACCINE QUADRIVALENT 3 YRS & OLDER IM 1 04/04/2017 documented in this encounter Care Teams Linux Unix System Administrator Relationship Specialty Start Date End Date Pepper Morgan MD PCP - General 09/16/16 Hank Garibay MD [address] [place] [address] [address] [place] [address] Surgeon Orthopedic Surgery 03/27/17 Jacky Murry MD [address] [place] [address] [address] [place] [address] Ophthalmology 03/27/17 documented as of this encounter
--- OUTSIDE RECORDS SUMMARY | 2024-06-18 19:04 | XMS_ITS | Encounter Summary ---
Author Organization [facility] Healthcare Address [address] [place] [address] Care Team Providers Care Roofer Applicator Name Role Phone Pepper Morgan MD Primary Care Provider [phone]- [phone] Encounter Details Date Type Department Care Team (Latest Contact Info) Description 02/07/2017 10:51 AM CDT - 02/09/2017 2:35 PM CDT Hospital Encounter [facility] [address] [place] [id number] Franki Card MD [address] [place] [address] DR HYLTON B [facility] [address] [place] [address] Discharge Disposition: Discharge to SNF Social History Tobacco Use Types Packs/Day Years Used Date Smoking Tobacco: Former Smokeless Tobacco: Never Alcohol Use Standard Drinks/Week Comments Yes 0 (1 standard drink = 0.6 oz pur e alcohol) Comments No Sex and Gender Information Value Date Recorded Sex Assigned at Not on file Legal 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 Gender Identity Not on file Sexual Orientation Not on file documented as of this encounter Last Filed Vital Signs Vital Sign Reading Time Taken Comments Blood Pressure 162/70 02/09/2017 10:59 AM CDT Pulse 64 02/09/2017 10:59 AM CDT Temperature - - Respiratory Rate - - Oxygen Saturation - - Inhaled Oxygen Concentration - - Weight 87 kg (191 lb 12.8 oz) 02/07/2017 6:35 PM CDT Height 152.4 cm (5') 02/07/2017 6:35 PM CDT Body Mass Index 37.46 02/07/2017 6:35 PM CDT documented in this encounter Discharge Summaries * Miscellaneous, Not In File - 02/09/2017 5:00 AM CDT DISCHARGE SUMMARY Patient: TESS BENEDICT I. Account: [id number] Room No: G604-01 : 1935 Patient Type: IP Attend.: Franki Card M.D. Admit Date: 02/07/2017 Dict.: Josef Gil, A.TCaroline Disch. Date: 02/09/2017 ADMITTING DIAGNOSIS Osteoarthritis of the left knee. DISCHARGE DIAGNOSIS Status post total knee arthroplasty on the left side. CONSULT PHYSICIANS Include Dr. Casillas. DISPOSITION To the transitional care unit. DISCHARGE CONDITION Stable. HISTORY AND PHYSICAL EXAM Mrs. Benedict is a pleasant 81-year-old female who is 2 days status post left total knee arthroplasty. She did well postoperatively with pain control and physical therapy. However, she had blood pressure issues. Therefore, Dr. Casillas was consulted for this. She denied shortness of breath, chest pains, nausea, vomiting, fevers, chills. On examination, she is alert and oriented x3. She is in no acute distress. Her vital signs are stable other than the hypertension. She rated her pain at 9/10. Hemoglobin and hematocrit were 12.1 and 36.3. The incision site was clean, dry and intact with no erythema, ecchymosis, signs of infection. She had a negative Homans sign in bilateral lower extremities. Intact pedal pulses. Due to her increased pain level, her MS Contin was increased to 30 mg q.12 hours. DISCHARGE INSTRUCTIONS The patient will be weightbearing as tolerated with a walker at all times. Incisional care and dressing care information is provided to the patient in written form. DISCHARGE MEDICATIONS The patient will be discharged on the additional medications of: 1. MS Contin 30 mg q.12. 2. Percocet 5/325. 3. Aspirin 325 mg p.o. b.i.d. 4. Vitamin C 500 mg p.o. b.i.d. 5. Iron 325 mg daily. 6. Senna p.r.n. Once again, the patient is to be discharged to transitional care unit. She will follow up with [facility] in 2 weeks' time with x-ray evaluation and suture removal. Electronically Authenticated by: Sadie Napoles P.A.-C On 02/15/2017 06:50 AM CDT Josef Gil., A.TAnjaliC. CT/ams TD: 02/10/2017 09:38 documented in this encounter Medications at Time [...] Disposition Code Departure Means Destination Discharge to SNF Other documented in this encounter Consult Notes * Miscellaneous, Not In File - 02/09/2017 5:00 AM CDT CONSULTATION REPORT Patient: TESS BENEDICT I. Service Date: 02/09/2017 Account: [id number] Room No: G604-01 : 1935 Patient Type: IP Attend.: Franki Card M.D. Admit Date: 02/07/2017 Consult: Jeb Casillas D.O. Disch. Date: 02/09/2017 PCP Pepper Morgan MD. CONSULTING PHYSICIAN Jeb Casillas DO CHIEF COMPLAINT Knee pain, hypertension. REASON FOR CONSULTATION Hypertension. HPI Ms Benedict is a 81-year-old female, history of osteoarthritis, hypertension, GERD, back pain that underwent elective right total knee arthroplasty on 02/07/2017 under the direction of Dr. Card. The patient is being seen postoperatively because of ongoing hypertension. She has a known history of hypertension which she takes propranolol for. She currently complains of knee pain post surgery. She denies any palpitations. No chest pain. No shortness of breath. No nausea, no vomiting. PAST MEDICAL HISTORY Osteoarthritis, hypertension, GERD, chronic back pain, history of melanoma, previous knee arthroplasty of the right knee. SOCIAL HISTORY She does not smoke. Denies alcohol use. No recreational drug use. FAMILY HISTORY No related major family history of orthopedics disease in immediate family. MEDICATIONS The medication list was reviewed in full and placed on physical chart. ALLERGIES LISINOPRIL, CELEBREX, SULFA. REVIEW OF SYSTEMS General: No recent weight gain or weight loss. Vision: No blurry vision. No change in vision. ENT: No change in hearing. No change in smell. No change in taste. Cardiac: No chest pain. No palpitations. Respiratory: No shortness of breath. No wheezing. No cough. Gastrointestinal: No nausea. No vomiting. No change in bowel movements. Genitourinary: No change in urinary urgency or frequency. No blood in urine. Skin: No new rashes or lesions. No new swelling. Hematologic: No new bleeding or bruising. Musculoskeletal: Knee pain status post surgery. ENDOCRINE No new heat or cold intolerance. Neurologic: No new weakness, numbness, tingling, seizures or headaches. Psych: No new depression, anxiety and no new mood changes. PHYSICAL EXAMINATION Temp 99.7, heart rate 64, respiratory rate 20, O2 sats 98% on room air. Blood pressure 162/70. General: Alert and oriented, in no apparent distress. HEENT: Head normocephalic, atraumatic. Pupils equal, round, and reactive to light. Oropharynx is clear, pink, and moist. Neck: Supple, no lymphadenopathy. Cardiac: Rate is regular, no murmurs. Lungs: Clear to auscultation bilaterally. No wheezing. Abdomen: Soft, nontender, nondistended. Skin: No edema, no rashes. Musculoskeletal: Moving upper and lower extremities with ease. 5 out of 5 muscle strength in upper and lower extremities. Neurologic: Grossly normal. Cranial nerves II through XII grossly intact. No focal deficits. Good mentation, coordination, and sensation. Psychiatric: Normal mood, normal behavior, normal conversation. LABS Hemoglobin 12.1, hematocrit 36.3. X-ray from 02/07/2017 showed status post left total knee arthroplasty. UA is unremarkable. I spent additional time reviewing supplemental history from the medical record, from patient's admission to our facility in April 25, 2014 during which time she was admitted for a right total knee arthroplasty as well as acute blood loss anemia after surgery. ASSESSMENT AND PLAN 1. Hypertension. Patient chronically on propranolol at 20 mg every 12 hours, which is a rather low dosing. Exacerbation of her hypertension currently is likely related to her pain from the recent surgery. She seems to be in quite a bit of pain currently. I suggest that we continue her pain management increase her propranolol to 40 mg b.i.d. dosing for the next 2 days but she will likely may not require such a high dosing if she was chronically only on 20. I suspect that we will need to evaluate her blood pressure further in less of an acute setting for a more accurate assessment of her chronic hypertension. She is transitioning over to transitional care unit later this afternoon. Patient is also on a low dose of felodipine which could be modified as well if needed but again recommend evaluating further when she is not ongoing pain postsurgically. 2. Knee osteoarthritis status post left total knee arthroplasty via Dr. Card. Being followed per Orthopedics. 3. Gastroesophageal reflux disease. Continue famotidine. 4. VTE prophylaxis per the Orthopedics team. Thank you for this consult. Electronically Authenticated by: Jeb Casillas MD On 02/10/2017 08:12 AM CDT Ian Eubanks/radames TD: 02/09/2017 14:53 documented in this encounter Miscellaneous Notes * Op Note - Provider, MD Latasha - 02/07/2017 12:00 AM CDT OPERATIVE REPORT Patient: TESS BENEDICT I. Service Date: 02/07/2017 Account: [id number] Room No: G604-01 : 1935 Patient Type: IP Attend.: Franki Card M.D. Admit Date: 02/07/2017 Surg.: Franki Card M.D. Disch. Date: 02/09/2017 SURGEON Franki Card MD SALAD CHEF TEO Gil, ATC The patient has right knee osteoarthrosis. PROCEDURE Right total knee arthroplasty. ANESTHESIA General. FINDINGS arthrosis. SALAD CHEF Sadie Brannon PA-C, essential to the procedure. SPECIMENS Sent. EBL 150. COMPLICATIONS None. CONDITION Stable. Tourniquet time was approximately 20 minutes at 275. OPERATIVE INDICATION Patient failed conservative left knee osteoarthrosis with above-named procedure. Informed consent signed by the patient. The patient understood the risks and benefits of the procedure including , stroke, bleeding, infection, damage to nerves, arteries, veins, loss of limb, loss of life, DVT, continued knee pain, need for additional procedures. Informed consent was signed. OPERATION IN DETAIL Patient taken to the OR. General anesthetic was performed. The area was cleaned with alcohol and preparation with ChloraPrep. Standard timeout was performed. The operative extremity was identified and also marked preoperatively. IMPLANTS USED A size 4 Attune rotating platform tibia. A size 38 Attune patella. A size 5 narrow posterior stabilized Attune femur and a size 8 mm posterior stabilized rotating platform poly. After timeout performed, skin incision was made. Further dissection performed with the Bovie. The Bovie was used throughout the procedure for hemostasis. The quad, VMO, patella marked with a marking pen. Standard arthrotomy was performed. The patella was sized and cut down to approximately 14. Patella protector was placed. The patella was denervated. Soft tissue of the distal femur was removed. Whitesides line was marked. Intramedullary canal was drilled. A 10 mm distal femoral cut was made. Resected the ACL, PCL and medial and lateral meniscus. Sized the femur to be a size 5, made an anterior cut, posterior cut, chamfer cuts, then subluxed the tibia anteriorly with the extramedullary guide, made a 4 mm cut off her defect. Appropriate tibial resection was obtained. We removed the posterior osteophytes with the osteotome. Checked our flexion and extension gaps. They were well balanced. Prepared the tibia for a size 4 Attune tibia. Made a box cut for a size 5 femur. Trialed a 7-8 poly. Good balance in flexion extension was noted. Prepared the patella. Took the knee through range of motion. Patella tracked well. Drilled a similar hole, exsanguinated the lower extremity. Inflated tourniquet to 275. Removed the trial components. Injected the periosteum, posterior capsule and medial and lateral gutters with cocktail solution, carefully aspirated and injected. Bone grafted the distal femur. Used iced tea and Pulsavac to remove any bloody and bony debris. Used antibiotic impregnated to cement the tibial component, femoral component, put a 8 trial poly with the knee in full extension and cemented patella component during the hardening portion procedure. Used an additional liter of iced tea, additional liter of warm saline. Once the cement hardened, knee was taken through range of motion. Any additional cement was removed. Then a size 8 rotating platform, billet bed operator stabilized Attune poly was placed. Arthrotomy was closed in standard fashion. A gram of vancomycin was placed in the prior to closure. Needle counts, sponge counts, instruments counts correct at the end of the case. POSTOPERATIVE PLAN Patient follow standard total knee arthroplasty protocol. Thank you for allowing me to participate in the patient's care. Electronically Authenticated by: Franki Card MD On 02/15/2017 08:17 PM CDT Franki Card M.D. NIKOLE/radames TD: 02/07/2017 20:19 * Op Note - Provider, MD Latasha - 02/07/2017 12:00 AM CDT OPERATIVE REPORT ADDENDUM Patient: TESS BENEDICT I. Service Date: 02/07/2017 Account: [id number] Room No: G604-01 : 1935 Patient Type: IP Attend.: Franki Card M.D. Admit Date: 02/07/2017 Surg.: Franki Card M.D. Disch. Date: 02/09/2017 ADDENDUM TO CHANGE RIGHT TO LEFT ON 02/21/17 @ 1033 SURGEON Franki Card MD SALAD CHEF Sadie Brannon PA-C, ATC The patient has left knee osteoarthrosis. PROCEDURE Left total knee arthroplasty. ANESTHESIA General. FINDINGS arthrosis. SALAD CHEF Sadie Brannon PA-C, essential to the procedure. SPECIMENS Sent. EBL 150. COMPLICATIONS None. CONDITION Stable. Tourniquet time was approximately 20 minutes at 275. OPERATIVE INDICATION Patient failed conservative left knee osteoarthrosis with above-named procedure. Informed consent signed by the patient. The patient understood the risks and benefits of the procedure including , stroke, bleeding, infection, damage to nerves, arteries, veins, loss of limb, loss of life, DVT, continued knee pain, need for additional procedures. Informed consent was signed. OPERATION IN DETAIL Patient taken to the OR. General anesthetic was performed. The area was cleaned with alcohol and preparation with ChloraPrep. Standard timeout was performed. The operative extremity was identified and also marked preoperatively. IMPLANTS USED A size 4 Attune rotating platform tibia. A size 38 Attune patella. A size 5 narrow posterior stabilized Attune femur and a size 8 mm posterior stabilized rotating platform poly. After timeout performed, skin incision was made. Further dissection performed with the Bovie. The Bovie was used throughout the procedure for hemostasis. The quad, VMO, patella marked with a marking pen. Standard arthrotomy was performed. The patella was sized and cut down to approximately 14. Patella protector was placed. The patella was denervated. Soft tissue of the distal femur was removed. Whitesides line was marked. Intramedullary canal was drilled. A 10 mm distal femoral cut was made. Resected the ACL, PCL and medial and lateral meniscus. Sized the femur to be a size 5, made an anterior cut, posterior cut, chamfer cuts, then subluxed the tibia anteriorly with the extramedullary guide, made a 4 mm cut off her defect. Appropriate tibial resection was obtained. We removed the posterior osteophytes with the osteotome. Checked our flexion and extension gaps. They were well balanced. Prepared the tibia for a size 4 Attune tibia. Made a box cut for a size 5 femur. Trialed a 7-8 poly. Good balance in flexion extension was noted. Prepared the patella. Took the knee through range of motion. Patella tracked well. Drilled a similar hole, exsanguinated the lower extremity. Inflated tourniquet to 275. Removed the trial components. Injected the periosteum, posterior capsule and medial and lateral gutters with cocktail solution, carefully aspirated and injected. Bone grafted the distal femur. Used iced tea and Pulsavac to remove any bloody and bony debris. Used antibiotic impregnated to cement the tibial component, femoral component, put a 8 trial poly with the knee in full extension and cemented patella component during the hardening portion procedure. Used an additional liter of iced tea, additional liter of warm saline. Once the cement hardened, knee was taken through range of motion. Any additional cement was removed. Then a size 8 rotating platform, billet bed operator stabilized Attune poly was placed. Arthrotomy was closed in standard fashion. A gram of vancomycin was placed in the prior to closure. Needle counts, sponge counts, instruments counts correct at the end of the case. POSTOPERATIVE PLAN Patient follow standard total knee arthroplasty protocol. Thank you for allowing me to participate in the patient's care. Electronically Authenticated by: Franki Card MD On 02/15/2017 08:17 PM CDT Electronically Authenticated by: Franki Card MD On 02/21/2017 01:35 PM CDT Franki Card M.D. NIKOLE/lindsay TD: 02/21/2017 10:32 documented in this encounter Plan of Treatment Not on file documented as of this encounter Procedures Procedure Name Priority Date/Time Associated Diagnosis Comments HEMOGLOBIN Routine 02/09/2017 4:48 AM CDT HEMATOCRIT Routine 02/09/2017 4:48 AM CDT DISCHARGE LABORATORY CUMULATIVE REPORT 02/09/2017 12:00 AM CDT EGFR Routine 02/08/2017 2:44 AM CDT BASIC METABOLIC PANEL Routine 02/08/2017 2:44 AM CDT DIFFERENTIAL AUTO Routine 02/08/2017 2:4 4 AM CDT CBC WITH AUTO DIFFERENTIAL Routine 02/08/2017 2:44 AM CDT XR KNEE 1 OR 2 VW Routine 02/07/2017 9:0 0 PM CDT URINE CULTURE STAT 02/07/2017 11:40 AM CDT URINALYSIS AND REFLEX TO MICROSCOPIC AND CULTURE STAT 02/07/2017 11:40 AM CDT URINALYSIS, MICROSCOPIC ONLY STAT 02/07/2017 11:40 AM CDT SURGICAL PATHOLOGY Routine 02/07/2017 9: 49 AM CDT SURGICAL PATHOLOGY 02/07/2017 12 :00 AM CDT documented in this encounter Results * Hemoglobin (02/09/2017 4:48 AM CDT) Hgb 12.1 12.1 - 15.1 g/dL [facility] Blood specimen (specimen) 02/09/2017 4:48 AM CDT 02/09/2017 5:14 AM CDT Sadie BRUCE LAB BLOOD ORDERABLES Final Result Performing Organization Address City/[facility]/ZIP Co de Phone Number [facility] 1 [facility] [place] [address] * Hematocrit (02/09/2017 4:48 AM CDT) [facility] Hct 36.3 36.1 - 44.3 % [facility] Blood specimen (specimen) 02/09/2017 4:48 AM CDT 02/09/2017 5:14 AM CDT [facility] Yvonne Brannon [place] LAB BLOOD ORDERABLES Final Result Performing Organization Address City/State/[facility] Co de Phone Number [facility] 1 [facility] [place] [address] * DISCHARGE LABORATORY CUMULATIVE REPORT (02/09/2017 12:00 AM CDT) Narrative 02/09/2017 12:00 AM CDT Ordered by an unspecified provider. [facility] Provider LAB BLOOD ORDERABLES Farzana l Result * eGFR (02/08/2017 2:44 AM CDT) Pathologist [facility] eGFR >60 mL/min/1.7 3 m2 [facility] ([place]) Comment: Interpretive Data Reference Interval [...] was last reviewed 2016. Blood specimen (specimen) 02/08/2017 2:44 AM CDT 02/08/2017 3:40 AM CDT Sadie BRUCE LAB BLOOD ORDERABLES Final Result [facility] 1 [facility] Department [place] [address] * (ABNORMAL) Basic metabolic panel (02/08/2017 2:44 AM CDT) Sodium 137 135 - 145 mmol/L [facility] ([place]) Potassium 4.4 3.5 - 5.1 mmol/L [facility] ([place]) Chloride 101 97 - 110 mmol/L [facility] ([place]) CO2 22 22 - 32 mmol/L [facility] ([place]) Anion gap 14 8 - 16 mmol/L [facility] ([place]) Glucose 126 70 - 199 mg/dL [facility] ([place]) Comment: Interpretive Data Note:The glucose is [...] data was last revised on 2014. BUN 11.7 8.0 - 25.0 mg/dL [facility] ([place]) Creatinine 0.52(L) 0.60 - 1.10 mg/dL [facility] ([place]) Calcium 8.5(L) 8.6 - 10.2 mg/dL [facility] ([place]) BUN/creat ratio 22(H) 10 - 20 [facility] ([place]) Blood specimen (specimen) 02/08/2017 2:44 AM CDT 02/08/2017 3:40 AM CDT us Sadie BRUCE LAB BLOOD ORDERABLES Final Result [facility] ([place]) 1 [facility] Department [place] [address] * (ABNORMAL) Differential, auto (02/08/2017 2:44 AM CDT) Neutrophil pct 89.4(H) 44.0 - 80.0 % [facility] ([place]) Imm gran pct 0.4 0.0 - 1.0 % [facility] ([place]) Lymphocyte pct 5.5(L) 13.0 - 44.0 % [facility] ([place]) Monocyte pct 4.4 2.0 - 11.0 % [facility] ([place]) Eosinophil pct 0.1 0.0 - 6.0 % [facility] ([place]) Basophil pct 0.2 0.0 - 3.0 % [facility] ([place]) Neutrophil abs 11.05(H) 1.60 - 7.00 K/cumm [facility] ([place]) Imm gran abs 0.05 0.00 - 0.20 K/cumm [facility] ([place]) Lymphocyte abs 0.68 0.50 - 4.30 K/cumm [facility] ([place]) Monocyte abs 0.55 0.10 - 1.00 K/cumm [facility] ([place]) Eosinophil abs 0.01 0.00 - 0.60 K/cumm [facility] ([place]) Basophil abs 0.02 0.00 - 0.30 K/cumm [facility] ([place]) Blood specimen (specimen) 02/08/2017 2:44 AM CDT 02/08/2017 3:40 AM CDT Sadie BRUCE LAB BLOOD ORDERABLES Final Result [facility] ([place]) 1 [facility] [employer] [place] [address] * (ABNORMAL) CBC with auto differential (02/08/2017 2:44 AM CDT) WBC 12.36(H) 3.80 - 9.80 K/cumm [facility] ([place]) RBC 4.52 3.90 - 5.00 M/cumm [facility] ([place]) Hgb 12.6 12.1 - 15.1 g/dL [facility] ([place]) Hct 39.1 36.1 - 44.3 % [facility] ([place]) MCV 86.5 80.0 - 100.0 fL [facility] ([place]) MCH 27.9 26.7 - 33.7 pg [facility] ([place]) MCHC 32.2(L) 32.7 - 36.0 g/dL [facility] ([place]) RDW CV 14.1 11.5 - 14.6 % [facility] ([place]) Plt 232 140 - 440 K/cumm [facility] ([place]) MPV 9.5 8.0 - 12.0 fL [facility] ([place]) NRBC 0.0 0.0 - 0.0 % [facility] ([place]) NRBC abs 0.00 0.00 - 0.00 K/cumm [facility] ([place]) Blood specimen (specimen) 02/08/2017 2:44 AM CDT 02/08/2017 3:40 AM CDT aSdie BRUCE LAB BLOOD ORDERABLES Final Result [facility] ([place]) 1 [facility] [place] [address] * XR Knee 1 Or 2 VW (02/07/2017 9:00 PM CDT) Anatomical Region Laterality Modality N/A Radiographic Gina ging 02/07/2017 9:00 PM CDT Narrative 02/07/2017 9:00 PM CDT XR Knee 1-2 Views L ??[id number] ??Acc#: ??[id number] DATE OF EXAM: ??Feb 07 2017 ?? XR Knee 1-2 Views L ??[id number] HISTORY: Osteoarthritis. ??Left total knee arthroplasty.. COMPARISON: Left knee on 07/28/2010 VIEWS: AP and crosstable lateral views in recovery FINDINGS: A total knee prosthesis is in place. ??Femoral, tibial and patellar components articulate satisfactorily in these projections. A small amount of opaque cement is present at the interface between each component and underlying bone. ??Air is present in the joint space and overlying soft tissues. IMPRESSION: 1. ??Status post left total knee arthroplasty. Electronically signed by: Yaron Siegel Jr., M.D. Interpreting Physician: ??DR YARON SIEGEL M.D. ??Read on: ??Feb 07 2017 ?? 9:14P Transcribed by: ??PSC ??On: Feb 07 2017 ??9:12P Approved Electronically by: ??ALEX Mittal, DR JONES ??on: ??Feb 07 2017 ?? 9:12P Ordering DR: SADIE BRANNON Attending DR: FRANKI CARD Attending: ??FRANKI CARD Requesting: ??SADIE BRANNON Requesting Fax: ??[phone] Attending Fax: ??[phone] Attending ID: ??[id number] Requesting ID: ??[id number] Report To 1 ID: ??[id number] Report To 1 Name: ??FRANKI CARD Report To 1 FAX: ??[phone] [employer] Order #: ?? Procedure Note Miscellaneous, Not In File / Provider, MD Latasha - 02/07/2017 XR Knee 1-2 Views L [id number] Acc#: [id number] DATE OF EXAM: Feb 07 2017 XR Knee 1-2 Views L [id number] HISTORY: Osteoarthritis. Left total knee arthroplasty.. COMPARISON: Left knee on 07/28/2010 VIEWS: AP and crosstable lateral views in recovery FINDINGS: A total knee prosthesis is in place. Femoral, tibial and patellar components articulate satisfactorily in these projections. A small amount of opaque cement is present at the interface between each component and underlying bone. Air is present in the joint space and overlying soft tissues. IMPRESSION: 1. Status post left total knee arthroplasty. Electronically signed by: Yaron Siegel Jr., M.D. Interpreting Physician: DR YARON SIEGEL M.D. Read on: Feb 07 2017 9:14P Transcribed by: [facility] On: Feb 07 2017 9:12P Approved Electronically by: ALEX Mittal, DR JONES on: Feb 07 2017 9:12P Ordering DR: SADIE BRANNON Attending DR: FRANKI CARD Attending: FRANKI CARD Requesting: SADIE BRANNON Requesting Attending Attending ID: [id number] Requesting ID: [id number] Report To 1 ID: [id number] Report To 1 Name: FRANKI CARD Report To 1 FAX: [phone] NextGen Order #: [id number] Sadie BRUCE IMG XR PROCEDURES Final Res ult * Urine culture (02/07/2017 11:40 AM CDT) Report Final Report: Insignifican t growth based on current clinical standards. CHIDI MOORE) Comment:Testing performed by : [facility], [address] [place]., [address] Urine 02/07/2017 11:4 0 AM CDT 02/07/2017 2:16 PM CDT Narrative CHIDI FANG ([place]) - 02/08/2017 7:47 AM CDT us Franki Card MD LAB MICROBIOLOGY - GENERAL O RDERABLES Final Result CHIDI FANG ([place]) 1 [facility] Department [place] [address] * (ABNORMAL) Urinalysis, microscopic only (02/07/2017 11:40 AM CDT) RBC, ur 2-5(A) 0 - 2 [facility] WBC, ur 0-2 0 - 2 [facility] Bacteria, ur Negative Negative [facility] Hyaline casts, ur Not Seen 0 - 2 [facility] ([place]) Epithelial cells, ur 0-2 0 - 2 [facility]) Urine 02/07/2017 11:4 0 AM CDT 02/07/2017 11:45 AM CDT us Franki Card MD LAB URINE ORDERABLES Final R esult [facility] [address] [place] [address] [place] [address] * (ABNORMAL) Urinalysis reflex to microscopic and culture (02/07/2017 11:40 AM CDT) Color, ur Yellow Yellow [facility] ([place]) Clarity, ur Clear Clear [facility] ([place]) Specific gravity, ur 1.007 1.003 - 1.030 [facility] ([place]) Comment:Normal Ranges: 1.003 -1.030 pH, ur 7.0 4.5 - 8.0 [facility] ([place]) Comment:Normal [...] Negative [facility]) Leukocyte esterase, ur Trace(A) Negative [facility] ([place]) Urine 02/07/2017 11:4 0 AM CDT 02/07/2017 11:45 AM CDT Narrative CHIDI [facility]ANG ([place]) - 02/07/2017 11:57 AM CDT CLEAN VOID Franki Card MD LAB MICROBIOLOGY - GENERAL O RDERABLES Final Result CHIDI FANG ([place]) 1 [facility] Department [place] [address] * Surgical pathology (02/07/2017 9:49 AM CDT) 02/07/2017 9:49 AM CDT 02/08/2017 9:49 AM CDT Narrative 02/10/2017 2:40 PM CDT [facility] Department of Pathology [address] [place] [id number] Final Report ?Patient Name: TESS BENEDICT I. Address: [address] [place] [address] Service: Surgery ??[place], [place] ??[address] Location: [facility] Taken: 02/07/2017 Gender: F Received 02/08/2017 : 1935 (Age: 81) Hospital #: [id number] Accessioned: 02/08/2017 ?? Patient Type: [facility] IP Reported 02/10/2017 Physician(s): Dr. Franki Card M.D. ?? Diagnosis: Bone, left knee, arthroplasty: ? - Degenerative joint disease. ?? Kasia Anderson M.D. ??Report Electronically Reviewed and Signed Out By ??Kasia Anderson M.D. ??02/10/2017 14:40:27 Specimen(s) Received: A: Use for joints OTHER THAN hip/femoral head Microscopic Description: Microscopic examination of bone and soft tissue from the left knee, including the decalcified section, shows extensive degenerative changes with erosion of the articular cartilage as well as fibrillation and clustering of chondrocytes. ??The underlying marrow space shows focal areas of reactive fibrosis, but is otherwise replaced by mature adipose tissue. ??The accompanying soft tissue shows only minimal nonspecific reactive alterations. Clinical History: Osteoarthritis. ??Tissue and bone left knee. Left total knee arthroplasty. Gross Description: The specimen is submitted in a single formalin filled container labeled with the patient's name and tissue and bone left knee . The specimen consists of multiple irregularly shaped fragments of bone and soft tissue measuring 13.5 x 11 x 1.5 cm in aggregate. ??The soft tissue primarily consists of adipose tissue but also appears to include portions of the menisci and some synovium. ??Recognizable pieces of bone include the tibial plateau and portions of the femoral condyles. ??Some of the bone fragments are covered by articular cartilage that show varying degrees of degenerative changes. ??These include eburnation, pitting and roughened granularity. ??Gas Burner Operator bone and soft tissue submitted in two cassettes with the bone submitted after decalcification. ??TEO Samuel Complete report with images are only be viewable in the PDF report The performance characteristics of some immunohistochemical stains, fluorescence in-situ hybridization tests and immunophenotyping by flow cytometry cited in this report (if any) were determined by the Surgical Pathology Department at [facility] as part of an ongoing plant quality manager program and in compliance with federally mandated [...] a high complexity laboratory under CLIA '88. ??The FDA has determined that such clearance or approval is not necessary. ??This test is used for clinical purposes. ??It should not be regarded as investigational or for research. ??Nevertheless, federal rules concerning the medical use of analyte specific reagents require that the following disclaimer be attached to the report: This test was developed and its performance characteristics determined by [facility]. ??It has not been cleared or approved by the U. S. Food and Drug Administration. Franki Card MD LAB PATHOLOGY ORDERABLES Fin al Result * SURGICAL PATHOLOGY (02/07/2017 12:00 AM CDT) Narrative 02/07/2017 12:00 AM CDT Ordered by an unspecified provider. us Historical Provider MD LAB PATHOLOGY ORDERABLES Final Result documented in this encounter Visit Diagnoses Not on filedocumented in this encounter Care Teams Roofer Applicator Relationship Specialty Start Date End Date Pepper Morgan MD PCP - General 09/16/16 documented as of this encounter
--- OUTSIDE RECORDS SUMMARY | 2024-06-18 19:04 | XMS_ITS | Encounter Summary ---
Author Organization [facility] Address [address] [address] Care Team Providers Care Solid Glass Rod Dowel Machine Operator Name Role Phone Pepper Morgan MD Primary Care Provider [phone]- [phone] Encounter Details Date Type Department Care Team (Latest Contact Info) Description 03/10/2017 12:23 PM CDT - 03/10/2017 11:59 PM CDT Hospital Encounter [facility] Orthopedics and Sports Medicine [address] [place] [id number] Discharge Disposition: Discharge to home or self care Social History Tobacco Use Types Packs/Day Years Used Date Smoking Tobacco: Former Smokeless Tobacco: Never Alcohol Use Standard Drinks/Week Comments Yes 0 (1 standard drink = 0.6 oz pur e alcohol) Comments No Sex and Gender Information Value Date Recorded Sex Assigned at Not on file Legal 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 56 tablet 02/07/2017 0 biotin 10,000 mcg capsule i qd 0 0 09/26/2016 7 cephalexin (KEFLEX) 250 mg capsule Take 1 capsule (250 mg total) by mouth 4 (four) times a day. HOLD-PT WILL JACK SPOOLER TENDER IF NEEDED 28 capsule 02/21/2017 7 cholecalciferol (VITAMIN D-3) 2,000 unit capsule [...] TIMES EVERY DAY 180 1 02/12/2014 7 traMADol (ULTRAM) 50 mg tablet take1-2 tabs every 4-6 hours prn for pain 40 tablet 1 02/18/2017 7 documented as of this encounter Discharge Disposition Disposition Code Departure Means Destination Discharge to home or self care documented in this encounter Plan of Treatment Pending Results Name Type Priority Associated Diagnoses Date /Time XR Hip Left 2 or 3 Views W Pelvis Imaging Schedule Routine, Read Routine (OP Routine) Aftercare following left knee joint replacement surgery 03/10/2017 12:32 PM CDT documented as of this encounter Visit Diagnoses Not on filedocumented in this encounter Care Teams Solid Glass Rod Dowel Machine Operator Relationship Specialty Start Date End Date Pepper Morgan MD PCP - General 09/16/16 documented as of this encounter
--- OUTSIDE RECORDS SUMMARY | 2024-06-18 19:04 | XMS_ITS | Encounter Summary ---
Author Organization [facility] Address [address] [facility] [address] [place] [address] Care Team Providers Care Program Trainer Name Role Phone Pepper Morgan MD Primary Care Provider +1- [phone] Melissa Hoyt RN Unavailable [phone] Encounter Details Date Type Department Care Team (Latest Contact Info) Description 02/21/2017 8:05 AM CDT - 02/21/2017 11:59 PM CDT Hospital Encounter [facility] Orthopedics and Sports Medicine [address] [facility] [address] [address] Discharge Disposition: Discharge to home or self care Social History Tobacco Use Types Packs/Day Years Used Date Smoking Tobacco: Former Smokeless Tobacco: Never Alcohol Use Standard Drinks/Week Comments Yes 0 (1 standard drink = 0.6 oz pur e alcohol) Comments No Sex and Gender Information Value Date Recorded Sex Assigned at Not on file Legal Sex Female 4:33 AM MEDICINE AND HEALTH SERVICE MANAGER Gender Identity Not on file [...] 4 (four) times a day. HOLD-PT WILL UPPER LEATHER CUTTER IF NEEDED 28 capsule 02/21/2017 7 cholecalciferol [...] for constipation 60 tablet 1 02/07/2017 7 traMADol (ULTRAM) 50 mg tablet take1-2 [...] VIEWS Schedule Routine, Read Routine (OP Routine) 02/21/2017 9:16 AM CDT Aftercare following left knee joint replacement surgery documented in this encounter Results * XR Knee Left 3 View (02/21/2017 9:16 AM CDT) Anatomical Region Laterality Modality Lower Extremities, Knee Left Digital Radiography Narrative 02/21/2017 9:57 AM CDT X-rays of the left are reviewed and interpreted and demonstrate no acute fractures subluxations or osseous changes. ??Status post TKA changes noted with implants in acceptable position. Susan BRUCE IMG XR PROCEDURES Final Result documented in this encounter Visit Diagnoses Not on filedocumented in this encounter Care Teams Program Trainer Relationship Specialty Start Date End Date Pepper Morgan MD PCP - General 09/16/16 Melissa Hoyt, RN [address] [place] [address] [place], [place] [id number] Analyst Sales 02/21/17 02/21/17 documented as of this encounter
--- OUTSIDE RECORDS SUMMARY | 2024-06-18 19:04 | XMS_ITS | Encounter Summary ---
Author Organization [facility] Address [address] [address] Care Team Providers Care Administrative Asst Name Role Phone Pepper Morgan MD Primary Care Provider [phone]- [phone] Encounter Details Date Type Department Care Team (Late st Contact Info) Description 02/10/2017 Telephone [facility] Orthopedics and Sports Medicine [address] [place] [phone] Jennifer Mcneal RMA Social History Tobacco Use Types Packs/Day Years Used Date Smoking Tobacco: Former Smokeless Tobacco: Never Alcohol Use Standard Drinks/Week Comments Yes 0 (1 standard drink = 0.6 oz pur e alcohol) Comments No Sex and Gender Information Value Date Recorded Sex Assigned at Not on file Legal 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 documented in this encounter Plan of Treatment Not on file documented as of this encounter Visit Diagnoses Not on filedocumented in this encounter Care Teams Administrative Asst Relationship Specialty Start Date End Date Pepper Morgan MD PCP - General 09/16/16 documented as of this encounter
--- OUTSIDE RECORDS SUMMARY | 2024-06-18 19:04 | XMS_ITS | Encounter Summary ---
Author Organization [facility] Address [address] [facility] [address] [place] [address] Care Team Providers Care Graphic Manager Name Role Phone Pepper Morgan MD Primary Care Provider [phone]- [phone] Encounter Details Date Type Department Care Team (Late st Contact Info) Description 01/23/2017 Telephone [facility] Orthopedics and Sports Medicine [address] [facility] [address] [place] [address] Susan Chang PA [address] [facility] [address] [place] [address] Social History Tobacco Use Types Packs/Day Years Used Date Smoking Tobacco: Former Smokeless Tobacco: Never Alcohol Use Standard Drinks/Week Comments Yes 0 (1 standard drink = 0.6 oz pur e alcohol) Comments Unknown Sex and Gender Information Value Date Recorded Sex Assigned at Not on file Legal Sex Female 4:33 AM BRONZE CHASER Gender Identity Not on file Sexual Orientation Not on file documented as of this encounter Miscellaneous Notes * Telephone Encounter - Tiffany Veliz MA - 01/24/2017 10:47 AM CDT Spoke to pt and gave her the msg from Katarzyna. Pt states she is experiencing a great deal of painand can hardly walk. Pt also mentioned that she felt very nauseated this morning due to the pain. Pt asked if she could come in today. Gave msg to Di. * Telephone Encounter - Katarzyna Maguire PA - 01/23/2017 4:21 PM CDT Please call patient and inform patient that she should allow her injection a few weeks to notice improvements from [facility]SI. * Telephone Encounter - Andrea Rader ATC - 01/23/2017 3:32 PM CDT Forwarded to Katarzyna * Telephone Encounter - Katy Acosta - 01/23/2017 3:22 PM CDT Pt left vm and states that she was seen last Monday and had an injection. She states she is no better and would like someone to call her and let her know how long it usually takes for the injection to work documented in this encounter Plan of Treatment Not on file documented as of this encounter Visit Diagnoses Not on filedocumented in this encounter Care Teams Graphic Manager Relationship Specialty Start Date End Date Pepper Morgan MD PCP - General 09/16/16 documented as of this encounter
--- OUTSIDE RECORDS SUMMARY | 2024-06-18 19:04 | XMS_ITS | Encounter Summary ---
Author Organization [facility] Address [address] [place] [address] Care Team Providers Care Corporate Quality Engineer Name Role Phone Pepper Morgan MD Primary Care Provider [phone]- [phone] Encounter Details Date Type Department Care Team (Late st Contact Info) Description 03/07/2017 12:43 PM CDT - 03/07/2017 11:59 PM CDT Hospital Encounter [facility] Hank Garibay MD [address] [facility] [address] [place] [address] Susan Chang PA [address] [facility] [place] [address] Discharge Disposition: Discharge to home or self care Social History Tobacco Use Types Packs/Day Years Used Date Smoking Tobacco: Former Smokeless Tobacco: Never Alcohol Use Standard Drinks/Week Comments Yes 0 (1 standard drink = 0.6 oz pur e alcohol) Comments No Sex and Gender Information Value Date Recorded Sex Assigned at Not on file Legal Sex Female 4:33 AM VTC TECHNICIAN Gender Identity Not on file Sexual [...] 4 (four) times a day. HOLD-PT WILL MULTIPLE EFFECT EVAPORATOR OPERATOR IF NEEDED 28 capsule 02/21/2017 7 cholecalciferol [...] Procedure Name Priority Date/Time Associated Diagnosis Comments DISCHARGE LABORATORY CUMULATIVE REPORT 03/08/2017 12:00 AM CDT DIFFERENTIAL AUTO Routine 03/07/2017 12: 53 PM CDT documented in this encounter Results * DISCHARGE LABORATORY CUMULATIVE REPORT (03/08/2017 12:00 AM CDT) Narrative 03/08/2017 12:00 AM CDT Ordered by an unspecified provider. [facility] Provider LAB BLOOD ORDERABLES Farzana l Result * Differential, auto (03/07/2017 12:53 PM CDT) Neutrophil pct 58.5 44.0 - 80.0 % [facility] ([place]) Imm gran pct 0.7 0.0 - 1.0 % [facility] Lymphocyte pct 26.0 13.0 - 44.0 % [facility]) Monocyte pct 8.6 2.0 - 11.0 % [facility] Eosinophil pct 5.4 0.0 - 6.0 % [facility] Basophil pct 0.8 0.0 - 3.0 % [facility] Neutrophil abs 4.15 1.60 - 7.00 K/cumm [facility] ([place] Imm gran abs 0.05 0.00 - 0.20 K/cumm [facility]) Lymphocyte abs 1.84 0.50 - 4.30 K/cumm [facility] ([place]) Monocyte abs 0.61 0.10 - 1.00 K/cumm [facility]) Eosinophil abs 0.38 0.00 - 0.60 K/cumm [facility] Basophil abs 0.06 0.00 - 0.30 K/cumm [facility] Blood specimen (specimen) 03/07/2017 12:53 PM CDT 03/07/2017 1:12 PM CDT us Susan BRUCE LAB BLOOD ORDERABLES Fi nal Result [facility] ([place]) 1 [facility] Department [place] [address] documented in this encounter Visit Diagnoses Not on filedocumented in this encounter Care Teams Corporate Quality Engineer Relationship Specialty Start Date End Date Pepper Morgan MD PCP - General 09/16/16 documented as of this encounter
--- OUTSIDE RECORDS SUMMARY | 2024-06-18 19:04 | XMS_ITS | Encounter Summary ---
Author Organization [facility] Address [address] [facility] [address] [place] [address] Care Team Providers Care Staff Respiratory Therapist Name Role Phone Pepper Morgan MD Primary Care Provider [phone]- [phone] Encounter Details Date Type Department Care Team (Late st Contact Info) Description 02/22/2017 Telephone [facility] Orthopedics and Sports Medicine [address] [facility] [address] [place] [address] Hank Garibay MD [address] [place] [address] [address] [place] [address] Social History Tobacco Use Types Packs/Day Years Used Date Smoking Tobacco: Former Smokeless Tobacco: Never Alcohol Use Standard Drinks/Week Comments Yes 0 (1 standard drink = 0.6 oz pur e alcohol) Comments No Sex and Gender Information Value Date Recorded Sex Assigned at Not on file Legal Sex Female 4:33 AM CROOK OPERATOR Gender Identity Not on file Sexual Orientation Not on file documented as of this encounter Miscellaneous Notes * Telephone Encounter - [place] Brannon PA - 02/23/2017 6:31 AM CDT Ok I will send a new rx to them today * Telephone Encounter - Di Parker - 02/22/2017 4:57 PM CDT I called and spoke Camille at [facility] she stated the pt was an inpt on the surgical floor and they received a fax for morphine and filled it for the pt. Pt was then transferred to TCU and somehow during the transfer the original rx for the morphine was lost and no one can find it. The pharmacy legally needs an original rx since they filled it according to the fax they received. * Telephone Encounter - [place] Brannon PA - 02/22/2017 2:40 PM CDT Please check into this. * Telephone Encounter - Kellie Jackson - 02/22/2017 9:37 AM CDT [facility] is calling again regarding needing an original script for Morphine dated 02/08. Camille is wanting a call at [phone]. documented in this encounter Plan of Treatment Not on file documented as of this encounter Visit Diagnoses Not on filedocumented in this encounter Care Teams Staff Respiratory Therapist Relationship Specialty Start Date End Date Pepper Morgan MD PCP - General 09/16/16 documented as of this encounter
--- OUTSIDE RECORDS SUMMARY | 2024-06-18 19:04 | XMS_ITS | Encounter Summary ---
Author Organization [facility] Address [address] [place] [address] Phone Care Team Providers Care Bulldozer Mechanic Name Role Phone Pepper Morgan MD Primary Care Provider +1- [phone] Encounter Details Date Type Department Care Team (Late st Contact Info) Description 01/31/2017 Telephone [facility] [address] [place] [address] Pepper Morgan MD [address] [place] [address] Social History Tobacco Use Types Packs/Day Years Used Date Smoking Tobacco: Former Smokeless Tobacco: Former Alcohol Use Standard Drinks/Week Comments Yes 0 (1 standard drink = 0.6 oz pur e alcohol) Comments Unknown Sex and Gender Information Value Date Recorded Sex Assigned at Not on file Legal Sex Female 4:33 AM DETECTIVE PRECINCT Gender Identity Not on file Sexual Orientation Not on file documented as of this encounter Miscellaneous Notes * Telephone Encounter - Alyson Elena LPN - 02/01/2017 8:47 AM CDT PT RETURNED CALL-- APPT SET UP WITH GOVERNMENT SERVICES PROFESSIONAL FOR MEDICAL CLEARANCE FOR KNEE REPLACEMENT. * Telephone Encounter - Alyson Elena LPN - 01/31/2017 12:42 PM CDT LMTRC-- ADVISE APPT WITH GOVERNMENT SERVICES PROFESSIONAL FOR CLEARANCE * Telephone Encounter - Eri Owens - 01/31/2017 12:21 PM CDT 's office called and they need a medical clearance from . Pt is having a total kneereplacement on 02/07/17. [phone] 's office documented in this encounter Plan of Treatment Not on file documented as of this encounter Visit Diagnoses Not on filedocumented in this encounter Care Teams Bulldozer Mechanic Relationship Specialty Start Date End Date Pepper Morgan MD PCP - General 09/16/16 documented as of this encounter
--- OUTSIDE RECORDS SUMMARY | 2024-06-18 19:04 | XMS_ITS | Encounter Summary ---
Author Organization [facility] Address [address] [facility] [address] [place] [address] Care Team Providers Care Parking Ramp Attendant Name Role Phone Pepper Morgan MD Primary Care Provider +1- [phone] Encounter Details Date Type Department Care Team (Late st Contact Info) Description 02/15/2017 Telephone [facility] Orthopedics and Sports Medicine [address] [facility] [address] [place] [address] Hank Garibay MD [address] [place] [address] [address] [place] [address] Social History Tobacco Use Types Packs/Day Years Used Date Smoking Tobacco: Former Smokeless Tobacco: Never Alcohol Use Standard Drinks/Week Comments Yes 0 (1 standard drink = 0.6 oz pur e alcohol) Comments No Sex and Gender Information Value Date Recorded Sex Assigned at Not on file Legal Sex Female 4:33 AM TETRYL BOILING TUB OPERATOR Gender Identity Not on file Sexual Orientation Not on file documented as of this encounter Miscellaneous Notes * Telephone Encounter - Jennifer Mcneal MA - 02/15/2017 12:12 PM CDT Noted will look what the patch was from the hospital. * Telephone Encounter - Kellie Jackson - 02/15/2017 9:53 AM CDT Pt called in from the Tran wing because there was a message from Cece about some medicine. The pt was unsure about it. There was no note, so I asked Cece, who said it was a call about Zofran from her pharmacy which she could disregard. I relayed the information to the pt. The pt also mentioned that she had a patch put on after surgery that she thinks caused her to think she was stuck in a basementfor 2 days. She does not want this patch ever again. I told her to make sure she told the nurses over there so they could document in her chart, but also wanted to document here. documented in this encounter Plan of Treatment Not on file documented as of this encounter Visit Diagnoses Not on filedocumented in this encounter Care Teams Parking Ramp Attendant Relationship Specialty Start Date End Date Pepper Morgan MD PCP - General 09/16/16 documented as of this encounter
--- OUTSIDE RECORDS SUMMARY | 2024-06-18 19:04 | XMS_ITS | Encounter Summary ---
Author Organization [facility] Address [address] [facility] [address] [place] [address] Care Team Providers Care Cattle Farmer Name Role Phone Pepper Morgan MD Primary Care Provider [phone]- [phone] Melissa Hoyt RN Unavailable [phone] Reason for Visit * Reason Comments Post-op Encounter Details Date Type Department Care Team (Late st Contact Info) Description 02/21/2017 9:15 AM CDT Office Visit [facility] Orthopedics and Sports Medicine [address] [facility] [address] [place] [address] Susan Chang PA [address] [place] [address] [address] [place] [address] Aftercare following left knee joint replacement surgery (Primary Dx) Social History Tobacco Use Types Packs/Day Years Used Date Smoking Tobacco: Former Smokeless Tobacco: Never Alcohol Use Standard Drinks/Week Comments Yes 0 (1 standard drink = 0.6 oz pur e alcohol) Comments No Sex and Gender Information Value Date Recorded Sex Assigned at Not on file Legal Sex Female 4:33 AM 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 Gender Identity Not on file Sexual Orientation Not on file documented as of this encounter Last Filed Vital Signs Vital Sign Reading Time Taken Comments Blood Pressure 170/77 02/21/2017 9:28 AM CDT Pulse 53 02/21/2017 9:28 AM CDT Temperature - - Respiratory Rate - - Oxygen Saturation - - Inhaled Oxygen Concentration - - Weight 87.5 kg (193 lb) 02/21/2017 9:28 AM CDT Height 154.9 cm (5' 1 ) 02/21/2017 9:28 AM CDT Body Mass Index 36.47 02/21/2017 9:28 AM CDT documented in this encounter Ordered Prescriptions Prescription Sig Dispense Quantity Refills Last Filled Start Date End Date cephalexin (KEFLEX) 250 mg capsule Take 1 capsule (250 mg total) by mouth 4 (four) times a day. HOLD-PT WILL ESL TEACHER IF NEEDED 28 capsule 02/21/2017 7 documented in this encounter Progress Notes * Susan Chang PA - 02/21/2017 9:15 AM CDT Images from the original note were not included. HPI: Patient is 2 weeks s/p left total knee arthroplasty. Pain is well controlled. Patient is currently taking OTC tylenol and tramadol for pain. Bowels are moving well. Patient partaking in home physicaltherapy, which is going well. Vital signs: BP 170/77 (BP Location: Right arm, Patient Position: Sitting) Pulse 53 Ht 154.9 cm (5' 1 ) Wt87.5 kg (193 lb) LMP (LMP Unknown) BMI 36.47 kg/m?? Exam: Well approximated healing post operative incision. No active draining, or signs of infection present. Neurovascular status is intact. Currently ambulating with a walker No calf tenderness noted bilaterally AAROM: 10-80; diffuse swelling throught LLE with pitting edema. Mild erythema, which is positional dependent. Patient able to perform active SLR without lag. XR results: Assessment: Diagnosis Plan 1. Aftercare following left knee joint replacement surgery XR Knee Left 3 View Ambulatory referral order to Physical Therapy -PT Evaluate and Treat Plan: Xrays, procedure, medications and post operative expectations reviewed with patient Sutures trimmed today Initiate outpatient physical therapy once home PT d/c care Follow up in 2 weeks time She will monitor her erythema; I feel this is positional and swelling dependent. Area was marked; if this worsens she will contact us. Rx on hole for Keflex at her pharmacy. All questions were answered. Patient expressed full understanding and agreement of plan. Susan Chang PA-C Cosigned by Hank Garibay MD at 02/22/2017 2:22 PM CDT documented in this encounter Plan [...] replacement surgery- Primary documented in this encounter Historical Medications * This list may reflect changes made after this encounter. Medication Sig Dispense Quantity Refills Last Filled Start D ate End Date oxyCODONE-acetaminoph en (PERCOCET) 5-325 mg per tabletIndications:Rey n 0 02/08/2017 03/07/2017 added in this encounter Care Teams Cattle Farmer Relationship Specialty Start Date End Date Pepper Morgan MD PCP - General 09/16/16 Melissa Hoyt, RN [address] [facility] [address] [place] [id number] Product Scientist 02/21/17 02/21/17 documented as of this encounter
--- OUTSIDE RECORDS SUMMARY | 2024-06-18 19:04 | XMS_ITS | Encounter Summary ---
Author Organization [facility] Address [address] [address] Care Team Providers Care Residential Finish Carpenter Name Role Phone Pepper Morgan MD Primary Care Provider [phone] Reason for Visit * Reason Comments Post-op Encounter Details Date Type Department Care Team (Late st Contact Info) Description 03/10/2017 11:30 AM CDT Office Visit [facility] Orthopedics and Sports Medicine [address] [place] [phone] Hank Garibay MD [address] [place] [address] [address] [address] Aftercare following left knee joint replacement surgery (Primary Dx) Social History Tobacco Use Types Packs/Day Years Used Date Smoking Tobacco: Former Smokeless Tobacco: Never Alcohol Use Standard Drinks/Week Comments Yes 0 (1 standard drink = 0.6 oz pur e alcohol) Comments No Sex and Gender Information Value Date Recorded Sex Assigned at Not on file Legal Sex Female 4:33 AM CELLAR HAND Gender Identity Not on file Sexual Orientation Not on file documented as of this encounter Last Filed Vital Signs Vital Sign Reading Time Taken Comments Blood Pressure 175/96 03/10/2017 11:37 AM CDT Pulse 68 03/10/2017 11:37 AM CDT Temperature - - Respiratory Rate - - Oxygen Saturation - - Inhaled Oxygen Concentration - - Weight 84.4 kg (186 lb) 03/10/2017 11:37 AM CDT Height 154.9 cm (5' 1 ) 03/10/2017 11:37 AM CDT Body Mass Index 35.14 03/10/2017 11:37 AM CDT documented in this encounter Progress Notes * Katarzyna Maguire PA - 03/10/2017 11:30 AM CDT Images from the original note were not included. HISTORY OF PRESENT ILLNESS: Tess Benedict is seen for 1 month follow-up of her left total knee arthroplasty. The patient isdoing well without complaints. Labs ordered at last visit and all came back normal. PHYSICAL EXAM: EFFUSION RIGHT: None EFFUSION LEFT: 1+ INCISION: Healing well with no evidence of infection Active ROM Right: 0 to 120 Active ROM Left: 0 to 90 Passive ROM Right: 0 to 120 Passive ROM Left: 0 to 95 Quad set: Yes Straight Leg Raise: Yes Neurologic Exam: Neurologically Intact Vascular Exam: Palpable Gait: normal Gait assistance: a walker X-RAYS: None. IMPRESSION: 1 month status post left cemented total knee arthoplasty. PLAN: Ice and elevate TEO Mcdermott documented in this encounter Plan of Treatment [...] Primary documented in this encounter Care Teams Residential Finish Carpenter Relationship Specialty Start Date End Date Pepper Morgan MD PCP - General 09/16/16 documented as of this encounter
--- OUTSIDE RECORDS SUMMARY | 2024-06-18 19:04 | XMS_ITS | Encounter Summary ---
Author Organization [facility] Address [address] [place] [address] Care Team Providers Care Window And Siding Craftsman Name Role Phone Pepper Morgan MD Primary Care Provider [phone]- [phone] Encounter Details Date Type Department Care Team (Late st Contact Info) Description 03/07/2017 1:00 PM CDT [address] [address] Aftercare following left knee joint replacement surgery Social History Tobacco Use Types Packs/Day Years Used Date Smoking Tobacco: Former Smokeless Tobacco: Never Alcohol Use Standard Drinks/Week Comments Yes 0 (1 standard drink = 0.6 oz pur e alcohol) Comments No Sex and Gender Information Value Date Recorded Sex Assigned at Not on file Legal 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 Gender Identity Not on file Sexual Orientation Not on file documented as of this encounter Plan of Treatment Not on file documented as of this encounter Procedures Procedure Name Priority Date/Time Associated Diagnosis Comments CBC WITH AUTO DIFFERENTIAL Routine 03/07/2017 12:53 PM CDT Aftercare following left knee joint replacement surgery ERYTHROCYTE SEDIMENTATION RATE Routine 03/07/2017 12:53 PM CDT Aftercare following left knee joint replacement surgery CRP (ACUTE PHASE) Routine 03/07/2017 12: 53 PM CDT Aftercare following left knee joint replacement [...] nal Result [facility] ([place]) 1 [facility] [place] [address] * CRP (acute phase) (03/07/2017 12:53 PM CDT) CRP 2.0 <=10.0 mg/L [facility] ([place]) Blood specimen (specimen) 03/07/2017 12:53 PM CDT 03/07/2017 1:12 PM CDT MeryCharity [facility] LAB BLOOD ORDERABLES Fi nal Result [facility]I [facility] ([place]) 1 [facility] [place] [address] * Erythrocyte sedimentation rate (03/07/2017 12:53 PM CDT) Erythrocyte sedimentation rate 10 0 - 35 mm/hr RACHELLKAMRON [facility] ([place]) Blood specimen (specimen) 03/07/2017 12:53 PM CDT 03/07/2017 1:12 PM CDT MeryCharity [facility] BLOOD ORDERABLES Fi nal Result Performing Organization Address [facility] Co de Phone Number [facility] ([place]) 1 [facility] [place] [address] documented in this encounter Visit Diagnoses Diagnosis Aftercare following left knee joint replacement surgery documented in this encounter Care Teams Window And Siding Craftsman Relationship Specialty Start Date End Date Pepper Morgan MD PCP - General 09/16/16 documented as of this encounter
--- OUTSIDE RECORDS SUMMARY | 2024-06-18 19:04 | XMS_ITS | Encounter Summary ---
Author Organization [facility] Medical [facility] Address [address] [facility] [address] [place] [address] Care Team Providers Care Aircraft Refueller Name Role Phone Pepper Morgan MD Primary Care Provider [phone]- [phone] Reason for Visit * Reason Comments Follow-up left knee pain from cortisone injection Pain Encounter Details Date Type Department Care Team (Late st Contact Info) Description 01/24/2017 2:15 PM CDT Office Visit [facility] Orthopedics and Sports Medicine [address] [facility] [address] [place] [phone] Hank Garibay MD [address] [place] [address] [address] [facility] [address] [place] [address] Primary osteoarthritis of left knee (Primary Dx); Left knee pain, unspecified chronicity Social History Tobacco Use Types Packs/Day Years Used Date Smoking Tobacco: Former Smokeless Tobacco: Former Alcohol Use Standard Drinks/Week Comments Yes 0 (1 standard drink = 0.6 oz pur e alcohol) Comments Unknown Sex and Gender Information Value Date Recorded Sex Assigned at Not on file 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 Gender Identity Not on file Sexual Orientation Not on file documented as of this encounter Last Filed Vital Signs Vital Sign Reading Time Taken Comments Blood Pressure 165/86 01/24/2017 2:29 PM CDT Pulse 51 01/24/2017 2:29 PM CDT Temperature - - Respiratory Rate - - Oxygen Saturation - - Inhaled Oxygen Concentration - - Weight 85.3 kg (188 lb) 01/24/2017 2:29 PM CDT Height 154.9 cm (5' 1 ) 01/24/2017 2:29 PM CDT Body Mass Index 35.52 01/24/2017 2:29 PM CDT documented in this encounter Patient Instructions * Patient Instructions* Hank Garibay MD - 01/24/2017 2:15 PM CDT Dx and Tx information given to patient today along with AAOS website. IF a scope is possible she would like to try this. documented in this encounter Progress Notes * Hank Garibay MD - 01/24/2017 2:15 PM CDT FOLLOW UP VISIT Subjective CHIEF COMPLAINT She had concerns including Pain of the Left Knee and Follow-up (left knee pain from cortisone injection). HISTORY OF PRESENT ILLNESS Knee Pain Patient complains of left knee pain. Denies any recent direct trauma or injury. States she was walking quite a bit about 2 week ago, following by a day of a lot of sitting. Weigthbearing increase symptoms, rest doesn't help much. The injection that Susan AVILEZ gave her no relief. Has to use a walker now and this is stopping her from normal ADLS. ??.Pain Assessment Pain Score: 9 MEDICATIONS She has a current medication list which includes the following prescription(s): aspirin, biotin, cholecalciferol, doxepin, pepcid complete, felodipine, fluticasone, melatonin, aleve, pramipexole, andpropranolol. REVIEW OF SYSTEMS Review of Systems Constitutional: [...] is not hyperactive. Objective PHYSICAL EXAM BP 165/86 Pulse 51 Ht 154.9 cm (5' 1 ) Wt 85.3 kg (188 lb) BMI 35.52 kg/m?? Right knee Inspection Surgical scar/wound: present. The surgical scar/wound is healed. Alignment: neutral Gait: normal Palpation The patient has normal palpation of the right knee. Range of motion The patient has normal range of motion of the right knee. The patient does not have pain with range of motion of the right knee. Strength The patient has 5/5 strength thoughout right knee. Neurovascular The patient has normal vascular on the right side of their body. Left knee Inspection Surgical scar/wound: absent. Alignment: neutral Gait: antalgic Palpation Tenderness: present. The tenderness is located in the condyle, lateral joint line and patella. Patellar tracking: abnormal Crepitus: positive Patella grind: positive Range of motion The patient has pain with range of motion of the left knee. Strength The patient has 5/5 strength throughout. Neurovascular The patient has normal vascular on the left side of their body. REVIEW OF X-RAYS/STUDIES/LABS BONE on Bone PFJ, Osteophytes medial and lat compartments Assessment/Plan Tess was seen today for follow-up and pain. Diagnoses and all orders for this visit: Primary osteoarthritis of left knee Left knee pain, unspecified chronicity - Cancel: XR Knee Left 4+ View Procedures PLAN Risks and benefits of total knee arthroplasty were discussed with the patient. These include but are not limited to bleeding infection damage to surrounding structures including, fracture, Damage to nerves, arteries, veins, DVT, PE, stroke, heart attack, and . Patient understands these risks and agreed to proceed with the surgery as described above. All questions and concerns were addressed with the patient prior to surgical consent being established in the office today. The patient will follow up for surgery. We will get an MRI of he Left knee since she is not bone on bone in the medial and lat compartments. documented in this encounter Plan of Treatment Not on file documented as of this encounter Visit Diagnoses Diagnosis Primary osteoarthritis of left knee- Primary Left knee pain, unspecified chronicity documented in this encounter Care Teams Aircraft Refueller Relationship Specialty Start Date End Date Pepper Morgan MD PCP - General 09/16/16 documented as of this encounter
--- OUTSIDE RECORDS SUMMARY | 2024-06-18 19:04 | XMS_ITS | Encounter Summary ---
Author Organization [facility] Address [address] [facility] [address] [place] [address] Care Team Providers Care Kerrick Kleaner Operator Name Role Phone Pepper Morgan MD Primary Care Provider + [phone] Melissa Hoyt RN Unavailable [phone] Hank Garibay MD Unavailable [phone] Jacky Murry MD Unavailable [phone] Puma Mckenzie MD Unavailable [phone] Encounter Details Date Type Department Care Team (Late st Contact Info) Description 02/18/2017 Orders Only [facility] Medical [facility] Orthopedics and Sports Medicine [address] [facility] [address] [place] [address] Susan Chang PA [address] [place] [address] [address] [place] [address] Social History Tobacco Use Types Packs/Day Years [...] on file Legal Sex Female 4:33 AM CRATE ICER Gender Identity Not on file Sexual Orientation Not on file documented as of this encounter Ordered Prescriptions Prescription Sig Dispense Quantity Refills Last Filled Start Date End Date traMADol (ULTRAM) 50 mg tablet take1-2 tabs every 4-6 hours prn for pain 40 tablet 1 02/18/2017 03/27/2017 documented in this encounter Plan of Treatment Not on file documented as of this encounter Visit Diagnoses Not on filedocumented in this encounter Discontinued Medications Medication Sig Discontinue Reason Start Date End Da te HYDROcodone-acetaminophe n (NORCO) 5-325 mg per tabletIndications:Pain 1-2 tabs Q4-6 hours prn pain Alternate therapy 02/07/2017 02/18/2017 morphine ER (MS CONTIN) 15 mg 12 hr tablet Take 1 tablet (15 mg total) by mouth 2 (two) times a day for 10 days. Alternate therapy 02/07/2017 02/18/2017 documented as of this encounter Additional Health Concerns Infection Onset Date Last Indicated Resolved Time COVID: Suspected 06/01/2020 06/01/2020 06/15/2020 3:07 AM CRATE ICER documented as of this encounter Care Teams Kerrick Kleaner Operator Relationship Specialty Start Date End Date Pepper Morgan MD PCP - General 09/16/16 Melissa Hoyt, RN [address] [address] Senior Controller 02/21/17 02/21/17 Hank Garibay MD [address] [facility] [address] [place] [address] Surgeon Orthopedic Surgery 03/27/17 Jacky Murry MD [address] [facility] [address] [place] [address] Ophthalmology 03/27/17 Puma Mckenzie MD [address] [facility] [address] [place] [address] Surgeon Orthopedic Surgery 07/11/19 documented as of this encounter
--- OUTSIDE RECORDS SUMMARY | 2024-06-18 19:04 | XMS_ITS | Encounter Summary ---
Author Organization [facility] Address [address] [facility] [address] [place] [address] Care Team Providers Care Synthetic Department Supervisor Name Role Phone Pepper Morgan MD Primary Care Provider [phone] Encounter Details Date Type Department Care Team (Latest Contact Info) Description 03/07/2017 11:25 AM CDT - 03/07/2017 11:59 PM CDT Hospital Encounter [facility] Orthopedics and Sports Medicine 4 [facility] [address], [place] [address] Discharge Disposition: Discharge to home or self care Social History Tobacco Use Types Packs/Day Years Used Date Smoking Tobacco: Former Smokeless Tobacco: Never Alcohol Use Standard Drinks/Week Comments Yes 0 (1 standard drink = 0.6 oz pur e alcohol) Comments No Sex and Gender Information Value Date Recorded Sex Assigned at Not on file Legal Sex Female 4:33 AM POCKET CREASER Gender Identity Not on file Sexual Orientation [...] 4 (four) times a day. HOLD-PT WILL ADJUNCT PROFESSOR OF VOICE IF NEEDED 28 capsule 02/21/2017 7 cholecalciferol [...] Results * XR Knee Left 3 View (03/07/2017 11:30 AM CDT) Anatomical Region Laterality Modality Lower Extremities, Knee Left Digital Radiography Narrative 03/13/2017 11:02 AM CDT X-rays of the left are reviewed and interpreted and demonstrate no acute fractures subluxations or osseous changes. ??Status post TKA changes noted with implants in acceptable position, without significant changes when compared bilaterally. Susan [facility] IMG XR PROCEDURES Final Result documented in this encounter Visit Diagnoses Not on filedocumented in this encounter Care Teams Synthetic Department Supervisor Relationship Specialty Start Date End Date Pepper Morgan MD PCP - General 09/16/16 documented as of this encounter
--- OUTSIDE RECORDS SUMMARY | 2024-06-18 19:05 | XMS_ITS | Encounter Summary ---
Author Organization [facility] Healthcare Address [address] [place] [address] Care Team Providers Care Coal Hauler Name Role Phone Pepper Morgan MD Primary Care Provider [phone] Encounter Details Date Type Department Care Team (Late st Contact Info) Description 04/22/2014 7:00 AM [facility] - 04/25/2014 9:45 AM [facility] Hospital Encounter [facility] Franki Benitez MD [address] [place] [address] DR [address] [address] Localized osteoarthrosis, lower leg; Anemia; Essential hypertension; Esophageal reflux; Personal history of malignant melanoma of skin; Person living alone Social History Tobacco Use Types Packs/Day Years Used Date Smoking Tobacco: Former Alcohol Use Standard Drinks/Week Comments Yes 0 (1 standard drink = 0.6 oz pur e alcohol) Comments Unknown Sex and Gender Information Value Date Recorded Sex Assigned at Not on file Legal Sex Female 4:33 AM [facility] Gender Identity Not on file Sexual Orientation Not on file documented as of this encounter Last Filed Vital Signs Vital Sign Reading Time Taken Comments Blood Pressure 153/91 04/25/2014 7:13 AM [facility] Pulse 74 04/25/2014 7:13 AM [facility] Temperature - - Respiratory Rate - - Oxygen Saturation - - Inhaled Oxygen Concentration - - Weight 88.4 kg (194 lb 14.2 oz) 04/22/2014 2:40 PM [facility] Height 152.4 cm (5') 04/22/2014 2:40 PM [facility] Body Mass Index 38.06 04/22/2014 2:40 PM [facility] documented in this encounter Discharge Summaries * Provider, MD Latasha - 04/25/2014 12:00 AM CST DISCHARGE SUMMARY Patient: TESS BENEDICT I. Account: [id number] Room No: G610-01 : 1935 Patient Type: IP Attend.: Franki Card M.D. Admit Date: 04/22/2014 Dict.: Josef Downey Disch. Date: 04/25/2014 Attending Physician: Dr. Franki Card Admitting Diagnosis: Right knee osteoarthritis. Discharge Diagnosis: Right knee osteoarthritis, status post right total knee arthroplasty. Disposition: Transitional care unit. Condition on Discharge: Good. Hospital Course: This is a pleasant 78-year-old female who was admitted following right total knee arthroplasty, which was performed by Dr. Franki Card on April 22, 2014. Throughout the postoperative period she worked with Physical Therapy on range of motion, strength, and gait training. She progressed well, however, was still limited on her activities and, thus, is being discharged to transitional care unit for further inpatient rehabilitation. She otherwise had no complaints throughout her stay. History and Physical Examination: Upon arrival to the patient's room this morning, the patient notes that overall she is feeling good and she is quite happy that she was accepted to transitional care unit. She denies any chest pain, shortness of breath, nausea, vomiting, or calf tenderness. She does state constipation. Objective: Vital Signs: Temperature 99.4, heart rate 63, respirations 18. Oxygen saturation 98 percent on room air. Blood pressure 156/64. The patient is alert and oriented x4. She is in no acute distress. Respiratory effort appears normal and is nonlabored. Examination of the dressing placed over the right knee produced minor increased drainage when compared with previous days. There is another filemon- appearing dried serosanguineous drainage on the inferior aspect of the dressing. There was no warmth, tenderness, or erythema to the right knee. There was diffuse tenderness across the right quadriceps. No calf tenderness was noted bilaterally. No posterior tenderness was noted of the right knee. Distal right extremity was grossly neurovascularly intact. Discharge Instructions: The patient is being discharged to [facility] for further physical therapy. We will discontinue her CPM due to the increase in drainage from the incision. She will be able to perform active range of motion as tolerated with the aid of physical therapist. The postoperative dressing is to remain in place until Monday of next week. Daily dressing changes may then be performed. Postoperative incision is to remain clean and dry until next Monday as well. She was instructed to avoid driving until further notice. She may continue use of TENS and polar ice modalities. She was instructed not to bathe or swim or use hot tubs for 6 weeks. Discharge Medications: In addition to routine home medications, the patient is being discharged on the followin. Oxycontin 10 mg 1 tablet p.o. b.i.d. 2. Percocet 5/325 mg 1 tablet p.o. q.4 to 6 hours p.r.n. 3. Zofran 4 mg 1 tablet p.o. q.8 hours p.r.n. for nausea vomiting. 4. Colace 100 mg 1 tablet p.o. daily for constipation. 5. Ferrous sulfate 325 mg 1 tablet p.o. daily. 6. Vitamin C 500 mg 1 tablet p.o. b.i.d. 7. Celebrex 200 mg 1 tablet p.o. daily. 8. Aspirin EC 325 mg 1 tablet p.o. b.i.d. for DVT prophylaxis. Followup: The patient should follow up in our clinic at 2 weeks postoperative. She should call us should she have any questions or concerns prior to this appointment. We will continue to follow this patient in her progress throughout her stay in the transitional care unit. Thank you very much for allowing us to participate in this patient's care. Josef Downey. /at TD: 04/26/2014 09:36 Authenticated and Edited by Susan Chang PA-C On 04/30/14 9:52:55 AM documented in this encounter Medications at Time of Discharge felodipine (PLENDIL) 2.5 mg 24 hr tablet TAKE 1 TABLET BY MOUTH TWICE DAILY 180 1 02/12/2014 03/27/2017 naproxen sodium (ALEVE) 220 mg capsule take 2 Capsule by Oral route every 4 - 6 days 0 0 01/13/2014 01/17/2017 pramipexole (MIRAPEX) 0.125 mg tablet take 1 tablet by oral route 3 times every day 0 0 01/13/2014 01/17/2017 pramipexole (MIRAPEX) 0.125 mg tablet TAKE 1-2 TABLETS BY MOUTH EVERY DAY 180 1 05/09/2011 03/27/2017 propranolol (INDERAL) 20 mg tablet take 1 tablet by oral route 3 times every day 0 0 01/13/2014 01/17/2017 propranolol (INDERAL) 20 mg tablet TAKE 1 TABLET BY ORAL ROUTE 2 TIMES EVERY DAY 180 1 02/12/2014 03/27/2017 documented as of this encounter H&P Notes * Provider, MD Latasha - 04/22/2014 12:00 AM CST HISTORY AND PHYSICAL Patient: TESS BENEDICT I. Account: [id number] Room No: : 1935 Patient Type: Attend.: Franki Card M.D. Admit Date: 04/22/2014 Dict.: Josef Gil, A.T.C. Disch. Date: Josef Gil, A.T.C. dictating for Franki Card M.D. The patient is a very pleasant 78-year-old female who has been a patient of Dr. Card for three months now. She was evaluated in our office for right knee pain that has been ongoing for several years. She was diagnosed with osteoarthritis of the right knee and total knee arthroplasty was recommended for her. Her primary care physician is Dr. Morgan, and she has been evaluated by Dr. Morgan and we are awaiting final clearance from her for surgery. MEDICATIONS 1. Aleve 220 mg two capsules every 4-6 days. 2. Felodipine ER 10 mg one tablet daily. 3. Indapamide 2.5 mg daily in the morning. 4. Pramipexole 0.125 mg three times a day. 5. Propranolol 20 mg one table three times per day. ALLERGIES 1. Sulfa. 2. Lisinopril. PAST MEDICAL HISTORY 1. Osteoarthritis. 2. Hypertension. 3. GERD. 4. Back pain. 5. History of melanoma. PAST SURGICAL HISTORY 1. Melanoma removal in 1975. 2. Gastroplasty in 1984. 3. Cholecystectomy and hernia repair in 1994. 4. Arthroscopic knee surgery in 2003. FAMILY HISTORY Noncontributory. SOCIAL HISTORY She is . She lives alone. She denies tobacco use. Reports rare alcohol use and denies illicit drug use. 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 REVIEW OF SYSTEMS At the time of exam done on 01/13/[address] Card she denied headache, blurred vision, dizziness, shortness of breath, chest pains, nausea, vomiting, fevers, or chills, upper or lower respiratory symptoms, upper or lower GI symptoms, bowel or bladder issues, numbness or tingling in the extremities. LABORATORY DATA Laboratory values done on 04/11/2014, hemoglobin and hematocrit of 13.8 and 42.6, creatinine 0.89, INR 1.03. Her urinalysis was negative, and her EKG was normal. Interpretation of x-rays done 01/13/2014 at [facility] show four views of the knee with tricompartmental arthrosis, medial compartment osteophytes, lateral compartment osteophytes, and patellofemoral arthrosis on the right knee. PHYSICAL EXAMINATION She was alert and oriented x3. She was in no acute distress. Her vital signs were stable. She had full extension and flexed her right knee to 115 degrees. She had pain and crepitus throughout the ranges of motion. No varus or valgus instability. No calf tenderness or signs of DVT. Her skin was fully intact. ASSESSMENT Osteoarthritis of the right knee. PLAN As previously mentioned, the patient has been consented. The risks and benefits of surgery have been discussed with her and she understands these risks and benefits. She will undergo total knee arthroplasty by Dr. Card on April 22, 2014 at [facility]. We are awaiting final clearance from Dr. Morgan for her surgery. This will be a CT-guided total knee arthroplasty, and we expect she will be in the hospital for a minimum of two night-stay. She will be on DVT prophylaxis postoperatively consisting of 325 mg p.o. b.i.d. She will be discharged likely to home with home health and home physical therapy. Her discharge medications will be provided to her upon the day of discharge, including her pain medication. Thank you for allowing us to participate in this patient's care. Josef Gil., A.T.C. CT/kg TD: 04/15/2014 13:19 CC: Pepper Morgan M.D. Authenticated by Chester Napoles P.A.-C On 04/23/2014 12:45:01 PM documented in this encounter Miscellaneous Notes * Op Note - Provider, MD Latasha - 04/22/2014 12:00 AM CST OPERATIVE REPORT Patient: TESS BENEDICT I. Account: [id number] Room No: G610-01 : 1935 Patient Type: IP Attend.: Franki Card M.D. Admit Date: 04/22/2014 Surg.: Franki Card M.D. Disch. Date: PREOPERATIVE DIAGNOSIS: Right knee osteoarthritis. PROCEDURE: Right total knee arthroplasty with TruMatch distal femoral cutting block ANESTHESIA: Spinal. FINDINGS: Tri-compartmental arthrosis. BRAILLE PROOFREADER: Susan Chang PA-C. SPECIMENS: Sent. ESTIMATED BLOOD LOSS: 150 mL. COMPLICATIONS: None. CONDITION: Stable. TOURNIQUET TIME: 17 minutes. URINE OUTPUT: 100. IV FLUIDS: 1500. OPERATIVE INDICATIONS: The patient has failed conservative management of right knee osteoarthritis and elected to have the above named procedure. Preoperative x-ray shows tricompartmental arthrosis, varus deformity, subchondral sclerosis. She failed injections, oral medications, activity modification and elected to have the above named procedure. The patient was cleared by the primary care physician preoperatively. An informed consent was obtained from the patient. The patient understood the risks and benefits of the procedure including but not limited to , stroke, bleeding, infection, damage to nerves, arteries, veins, loss of limb, loss of life, deep venous thrombosis, fracture, continued knee pain, loss of motion, need for additional procedures. An informed consent was obtained. The consent form was also signed. COMPONENTS: We used a size 5 posterior stabilized rotating platform poly, a size 38 mm attune patella, a size 4 rotating platform tibia base plate, a size 5 narrow posterior stabilized femur. OPERATION IN DETAIL: The patient was taken to the OR, spinal anesthesia was given. Antibiotics were given preoperatively. The patient was placed in the supine position. All extremities were well padded. A bump was placed underneath the right hip and gel pad was placed at the musculotendinous junction of the calf to hold the knee up in flexion. After this was done, the right lower extremity was cleaned with alcohol and prepped and draped in a standard, sterile technique with ChloraPrep x4. Standard time-out was performed. Operative extremity was identified which was also marked preoperatively. The patient did have a Syed placed by the nursing staff after the spinal was placed. After the extremity was prepped and draped, a standard medial parapatellar arthrotomy was marked out and the incision was sealed with Ioban, gloves were then changed. The knee was flexed up to 100 degrees and a skin incision was made with a 10 blade. The VMO insertion was marked with the fresh marking pen and a medial parapatellar arthrotomy was performed with a Bovie. The Bovie was used throughout the procedure for further dissection. Aquamantys was used for hemostasis. After arthrotomy was performed, we removed the soft tissue off the distal aspect of the femur with the Bovie and removed the fat pad with the Bovie protecting the patellar tendon with an [place]. The distal femoral TruMatch cutting block was placed and pinned in place. It was felt to be in appropriate position. The distal cut was made and the pins were removed. The size guide was assessed and felt to be appropriate medial and lateral size. We made an anterior cut and we then pinned proximally, brought the cut down 1.5 mm to tighten the posterior gap and made a posterior cut. Appropriate posterior resection was obtained, a 10 mm medial resection was obtained. Thus, we pinned the block in place and took an additional 1.5 off the anterior aspect of the femur which gives a nice grand piano type cut. No notching was noted. We then performed the Chamfer cuts and resected the ACL/PCL, medial and lateral menisci, subluxed the tibia anteriorly, removed the medial osteophyte, central osteophytes using extramedullary guides set at 3 degrees of posterior slope in line with the tibia, 10 off the lateral side. After pinning this in place, the tibial cut was made and appropriate resection was noted. We then used the curved osteotome to remove posterior osteophytes off the posterior aspect of the femur. There were also multiple loose bodies in the posterior medial gutter and posterior medial aspect of the knee, which were carefully removed. Once this was completed, we placed a box cut guide in place, pinned this in place and made the box cut with the reciprocal saw. A rasp was then used to remove any additional bone necessary. We irrigated out the knee, prepared the tibia for a size tibia. We felt the tibia was overhanging, thus we switched to a size which was felt to be appropriate. We removed the additional medial and posterior medial osteophytes. We then trialed the size femur, size tibia with a 6, 7 and 8 poly. With the we felt we had hyperextension and mild laxity in flexion. We felt alignment was appropriate. We drilled the distal femoral holes and denervated the patella with the Bovie. We removed the osteophytes around the patella, sized the patella to be mm, cut this down to about and prepared a mm patella. We placed a trial patella, took the knee through a range of motion and it tracked well. We then exsanguinated the lower extremity, inflated the tourniquet to mmHg for approximately minutes. We removed the trial components, used cocktail solution to inject the posterior capsule and directly off the periosteum aspirating carefully as we injected, also injected the medial and lateral gutters, carefully aspirating as we injected. Once this was completed, we Pulsavac' d the femur, patella and tibia to remove any bony debris. We used antibiotic-impregnated cement to cement the tibia in place. The femoral component was placed, placed a trial component and used cement to cement the tibial component in place with the knee in full extension. We used one liter of ice tea solution during the cement hardening process in addition to a liter of warm saline. We then Pulsavac' d the knee thoroughly. After the cement hardened, the tourniquet was released and took the knee through a range of motion, mild laxity in extension and flexion. We trialed a size . Full extension was obtainable. Pushing on the heel, the knee would not flex and a full extension was noted. Also, stability in flexion was noted but the size was felt to be most appropriate. We removed the trial component and impacted a in place. We irrigated out the knee, took the knee through a range of motion and it was stable in flexion and extension, the patella tracked well. We then used a re-infusion drain since the patient was anemic preoperatively and then closed the arthrotomy with #2 and #1 Vicryl, closed in layers with 0 Vicryl, 3-0 Vicryl, 4-0 Monocryl, Dermabond and Op-Site dressing. TENS unit pads were placed in the VMO, VLO, Polar Care was placed and Lenny from the foot over the thigh was placed prior to the Polar Care and the patient was then taken to the PAR in stable condition. Needle counts, sponge counts, and instrument counts were correct at the end of the case. POSTOPERATIVE PLAN: The patient will follow standard total knee arthroplasty protocol. The patient will be on DVT prophylaxis for one month postoperatively. Thank you for allowing me to participate in this patient's care. Please see pink sheet for Attune sizing Kyrie Gupta/mohan TD: 04/22/2014 16:36 CC: Pepper Morgan M.D. Authenticated and Edited by Franki Card MD On 04/25/14 8:33:55 PM documented in this encounter Plan of Treatment Not on file documented as of this encounter Procedures Procedure Name Priority Date/Time Associated Diagnosis Comments DISCHARGE LABORATORY CUMULATIVE REPORT Routine 04/25/2014 12:00 AM [facility] BLOOD HEMOGLOBIN Routine 04/24/2014 4:24 AM [facility] BLOOD HEMATOCRIT Routine 04/24/2014 4:24 AM [facility] SERUM BASIC METABOLIC PANEL Routine 04/23/2014 4:40 AM [facility] BLOOD WBC CELL MORPHOLOGIC EXAM, AUTO Routine 04/23/2014 4:40 AM [facility] BLOOD CELL COUNT (CBC) Routine 04/23/2014 4:40 AM [facility] SURGICAL PATHOLOGY REPORT Routine 04/22/2014 2:03 PM [facility] XR KNEE 1 OR 2 VW Routine 04/22/2014 12: 39 PM [facility] documented in this encounter Results * Discharge Laboratory Cumulative Report (04/25/2014 12:00 AM [facility]) 04/25/2014 Narrative HISTORICAL RESULTS - 04/26/2014 2:47 AM [facility] Patient No: [id number] ? [facility] Patient Name: TESS BENEDICT I ? [facility] Healthcare Age: 78 YRS ?: 1935 ?Sex:F ?[address] )[id number] ?? Adm Dt: 04/22/2014 ?[place] ??[address] Created: 04/26/2014 ??0247 ?? Pt. Type: I ? Discharge Dt: 04/25/2014 ? Pathologists: Jenny Aguirre MD Admit Attend Dr: FRANKI CARD MD ? BLOOD CELL COUNTS ?Collection Date: ?04/24/14 ? 04/23/14 ?Collection Time: ?0424 ? 0440 ? Ref Range: ?? Units: [4.00-10.50] /CMM ? WBC X 10^3 ?10.97 H [4.20-5.40] ??/CMM ? RBC X 10^6 ? 4.17 L [12.0-16.0] ??G/DL ? HGB ? 10.5 L ? 11.5 L [37.0-47.0] ??% ?HCT ? 32.5 L ? 36.2 L [77.0-97.0] ??FL ? MCV ?86.8 [23.0-34.0] ??PG ? MCH ?27.6 [32.0-36.0] ??% ?MCHC ? 31.8 L [11.5-14.5] ??% ?RDW ?13.6 [150-400] ?? /CMM ? PLT X 10^3 ?279 ?BLOOD CELL DIFFERENTIAL ?Collection Date: ?04/23/14 ?Collection Time: ?0440 ? Ref Range: ?? Units: [54.0-69.0] ??% ?NEUTROPHILS ? 83.8 H [25.0-33.0] ??% ?LYMPHOCYTES ?6.7 L [0.0-13.0] ??% ?MONOCYTES ?9.1 [0.0-10.0] ??% ?EOSINOPHILS ?0.0 [0.0-1.0] ?? % ?BASOPHILS ?0.1 ? /CMM ? A LYMPHOCYTE ? 0.7 L [0.0-1.0] ?? % ?IMM GRAN % ? 0.3 [0.00-0.02] ??/CMM ? A IMM GRAN ?0.03 H [1.1-1.9] ?? /CMM ? A MONOCYTE ? 1.0 L [1.4-6.5] ?? /CMM ? A NEUTROPHIL ? 9.2 H [0.0-0.7] ?? /CMM ? A EOSINOPHIL ? 0.0 [0.0-0.2] ?? /CMM ? A BASOPHIL ? 0.0 Footnotes and Symbols: L = Low, H = High ?? CONTINUED ?Page: ?? 1 Patient No: [id number] ? [facility] Patient Name: HANANE, TESS I ? [facility] Age: 78 YRS ?: 1935 ?Sex:F ?[address] )[id number] ?? Adm Dt: 04/22/2014 ?[place], [place] ??[address] Created: 04/26/2014 ??0247 ?? Pt. Type: I ? Discharge Dt: 04/25/2014 ? Pathologists: Jenny Aguirre MD Admit Dr. Espinoza Dr: FRANIK CARD MD ? GENERAL CHEMISTRY ?Collection Date: ?04/23/14 ?Collection Time: ?0440 ? Ref Range: ?? Units: [134-143] ?? MMOL/L ? SODIUM ? 132 L [3.4-5.0] ?? MMOL/L ? POTASSIUM ?4.1 [99.0-108.0] MMOL/L ? CHLORIDE ? 100.0 [23.0-32.0] ??MMOL/L ? TOTAL CO2 ? 28.5 ?? [7-14] ?MMOL/L ? ANION GAP ?8 ??[70-199] ?? MG/DL ?GLUCOSE ?133 f [280-301] ?? MOSM/K ? CALCULATED OSMO ?267 L [8.6-9.8] ?? MG/DL ?CALCIUM ?8.8 [6.0-23.0] ??MG/DL ?BUN ? 14.0 ??[10-20] ? B/C RATIO ? 17 [0.60-1.30] ??MG/DL ?CREATININE ?0.84 Footnotes and Symbols: L = Low, f = Footnote GLUCOSE (05/21/13 -- Current) Note:The glucose is assumed non fasting Fastin-99 mg/dl Random: 70-199 mg/dl Either a fasting glucose > 126 mg/dL or a random glucose > 200 mg/dL plus symptoms is diagnostic of diabetes when confirmed on another day. Fasting values > 100 mg/dl but < 125 mg/dL are diagnostic of impaired fasting glucose. New reference ranges implemented 04/29/2013. ?? CONTINUED ?Page: ?? 2 Patient No: [id number] ? [facility] Patient Name: TESS BENEDICT I ? [facility] Healthcare Age: 78 YRS ?: 1935 ?Sex:F ?[address] )[id number] ?? Adm Dt: 04/22/2014 ?[place], [place] ??[address] Created: 04/26/2014 ??0247 ?? Pt. Type: I ? Discharge Dt: 04/25/2014 ? Pathologists: Jenny Aguirre MD Admit DrAnjali Attend Dr: FRANKI CARD MD ?S U R G I C A L ?P A T H O L O G Y ?R E P O R T ? Case #: ?[id number] ? Date: 04/22/14 SPECIMEN SOURCE: ? Bone and tissue right knee. CLINICAL INFORMATION AND IMPRESSION: ? Degenerative joint disease. ??Total knee arthroplasty, right. GROSS DESCRIPTION: ? The specimen is submitted in a single container labeled Tess Priyankalianne and ? bone and tissue right knee. ??The specimen consists of multiple irregularly ? shaped fragments of bone and soft tissue measuring 11 x 9 x 3.7 cm in ? aggregate. ??The soft tissue primarily consists of adipose tissue but also ? appears to include portions of the menisci and some synovium. ??The bone ? fragments are variably covered by articular cartilage that shows marked ? degenerative changes. ??These include eburnation and roughened granularity. ??It ? additionally includes a 2.4 cm ovoid sphere of bone and cartilage, consistent ? with a loose (osteochondroid) body. ??E[employer] Spice [employer]er bone and soft tissue ? submitted in two cassettes with the bone submitted after decalcification. ? SR/lm MICROSCOPIC DESCRIPTION: ? The decalcified sections show a spectrum of degenerative changes ranging from ? mild fibrillation and fragmentation to areas of complete cartilaginous ? erosion. ??The subchondral bone is sclerotic and shows medullary fibrosis. ? There are several cystic areas bordered by newly formed bone. ??The rest of the ? cancellous bone is unremarkable. ??The medullary cavity is populated chiefly by ? mature adipocytes. ??It also includes some histologically benign, hematopoietic ? tissue. ??The synovium is mildly hyperplastic and shows sparse patchy ? lymphocytic infiltrate. ??It also contains at least one small rounded focus of ? chondroid metaplasia. ? MR/lm ?? CONTINUED ?Page: ?? 3 Patient No: [id number] ? [facility] Patient Name: TESS BENEDICT I ? [facility] Healthcare Age: 78 YRS ?: 1935 ?Sex:F ?[address] )[id number] ?? Adm Dt: 04/22/2014 ?[place] ??[address] Created: 04/26/2014 ??0247 ?? Pt. Type: I ? Discharge Dt: 04/25/2014 ? Pathologists: Jenny Aguirre MD Admit DrAnjali Attend Dr: FRANKI CARD MD ?S U R G I C A L ?P A T H O L O G Y ?R E P O R T ? Case #: ?[id number] ? Date: 04/22/14 DIAGNOSIS: ? JOINT, RIGHT KNEE, ARTHROPLASTY: ? -DEGENERATIVE JOINT DISEASE, SEVERE ? -LOOSE BODY (GROSS ONLY) ? [id number], [id number], [id number], [id number], [id number], [id number] COMMENT: ? PROCEDURE: ??Decalcification. ? Pathologist: SUSAN DAVALOS MD Electronic signature ? MAR MAR/LM 04/24/14 ?? END OF CHART ? Page: ?? 4 Historical Provider LAB BLOOD ORDERABLES Farzana l Result Performing Organization Address [facility] de Phone Number HISTORICAL RESULTS * (ABNORMAL) Blood hematocrit (04/24/2014 4:24 AM [facility]) Pathologist [facility] Hct 32.5(L) 37.0 - 47.0 % HISTORICAL RESULTS Blood specimen (specimen) 04/24/2014 4:24 AM [facility] Result [facility] Susan BRUCE LAB BLOOD ORDERABLES Fi nal Result Performing Organization Address [facility] de Phone Number HISTORICAL RESULTS * (ABNORMAL) Blood hemoglobin (04/24/2014 4:24 AM [facility]IRLS) Pathologist [facility] Hgb 10.5(L) 12.0 - 16.0 g/dl HISTORICAL RESULTS Blood specimen (specimen) 04/24/2014 4:24 AM [facility] Result [facility] Susan BRUCE LAB BLOOD ORDERABLES Fi nal Result Performing Organization Address [facility] de Phone Number HISTORICAL RESULTS * (ABNORMAL) Serum basic metabolic panel (04/23/2014 4:40 AM [facility]IRLS) BUN 14.0 6.0 - 23.0 mg/dl HISTORICAL RESULTS Sodium 132(L) 134 - 143 mmol/L HISTORICAL RESULTS Potassium, sr 4.1 3.4 - 5.0 mmol/L HISTORICAL RESULTS Chloride 100 99 - 108 mmol/L HISTORICAL RESULTS CO2 28 23 - 32 mmol/L HISTORICAL RESULTS Glucose 133 70 - 199 mg/dl HISTORICAL RESULTS Comment: Note:The glucose is assumed non fasting Fastin-99 mg/dl Random: 70-199 mg/dl Either a fasting glucose > 126 mg/dL or a random glucose > 200 mg/dL plus symptoms is diagnostic of diabetes when confirmed on another day. Fasting values > 100 mg/dl but < 125 mg/dL are diagnostic of impaired fasting glucose. New reference ranges implemented 04/29/2013. Creatinine 0.84 0.60 - 1.30 mg/dl HISTORICAL RESULTS BUN/creat ratio 17 10 - 20 HIST ORICAL RESULTS A. gap 8 7 - 14 mmol/L HISTORICAL RESULTS Osmo, calc 267(L) 280 - 301 mOsm/kg HISTORICAL RESULTS Calcium 8.8 8.6 - 9.8 mg/dl HISTORICAL RESULTS Serum 04/23/2014 4:40 AM [facility] Susan BRUCE LAB BLOOD ORDERABLES Fi nal Result Performing Organization Address [facility] de Phone Number HISTORICAL RESULTS * (ABNORMAL) Blood cell count (CBC) (04/23/2014 4:40 AM [facility]IRLS) WBC 11.0(H) 4.0 - 10.5 K/cumm HISTORICAL RESULTS RBC 4.17(L) 4.20 - 5.40 M/cumm HISTORICAL RESULTS Hgb 11.5(L) 12.0 - 16.0 g/dl HISTORICAL RESULTS Hct 36.2(L) 37.0 - 47.0 % HISTORICAL RESULTS MCV 86.8 77.0 - 97.0 fl HISTORICAL RESULTS MCH 27.6 23.0 - 34.0 pg HISTORICAL RESULTS MCHC 31.8(L) 32.0 - 36.0 g/dl HISTORICAL RESULTS Rdw 13.6 11.5 - 14.5 % HISTORICAL RESULTS Platelets 279 150 - 400 K/cumm HISTORICAL RESULTS MPV 9.5 7.4 - 10.4 fl HISTORICAL RESULTS Blood specimen (specimen) 04/23/2014 4:40 AM [facility] Susan BRUCE LAB BLOOD ORDERABLES Fi nal Result Performing Organization Address City/State/[facility] de Phone Number HISTORICAL RESULTS * (ABNORMAL) Blood WBC cell morphologic exam, auto (04/23/2014 4:40 AM [facility]) Lymphocytes 6.7(L) 25.0 - 33.0 % HISTORICAL RESULTS Monos 9.1 0.0 - 13.0 % HISTORICAL RESULTS Neutrophils 83.8(H) 54.0 - 69.0 % HISTORICAL RESULTS Eosinophils 0.0 0.0 - 10.0 % HISTORICAL RESULTS Basophils 0.1 0.0 - 1.0 % HISTORICAL RESULTS Immature granulocytes 0.3 0.0 - 1.0 % HISTORICAL RESULTS Lymphocytes, abs 0.7(L) 1.2 - 3.4 K/cumm HISTORICAL RESULTS Monocytes, absolute 1.0(L) 1.1 - 1.9 K/cumm HISTORICAL RESULTS Neutrophils, abs 9.2(H) 1.4 - 6.5 K/cumm HISTORICAL RESULTS Eosinophils, abs 0.0 0.0 - 0.7 cells/cum m HISTORICAL RESULTS Basophils, abs 0.0 0.0 - 0.2 K/cumm HISTORICAL RESULTS Immature granulocyte, abs 0.0(H) 0.0 - 0.0 K/cumm HISTORICAL RESULTS Blood specimen (specimen) 04/23/2014 4:40 AM [facility] Susan BRUCE LAB BLOOD ORDERABLES Fi nal Result HISTORICAL RESULTS * Surgical Pathology Report (04/22/2014 2:03 PM [facility]) 04/22/2014 2:03 PM [facility] Narrative HISTORICAL RESULTS - 04/24/2014 1:46 PM [facility]IRLS [facility] Patient No: [id number] Patient Name: TESS BENEDICT [id number] Age: 78 YRS ?? : 1935 Admit Phys: FRANKI CARD MD Case #: [id number] ? Date: 04/22/14 SPECIMEN SOURCE: ? Bone and tissue right knee. CLINICAL INFORMATION AND IMPRESSION: ? Degenerative joint disease. ??Total knee arthroplasty, right. GROSS DESCRIPTION: ? The specimen is submitted in a single container labeled ? Tess Benedict and bone and tissue right knee. ??The ? specimen consists of multiple irregularly shaped fragments of ? bone and soft tissue measuring 11 x 9 x 3.7 cm in aggregate. ? The soft tissue primarily consists of adipose tissue but also ? appears to include portions of the menisci and some synovium. ? The bone ??fragments are variably covered by articular ? cartilage that shows marked degenerative changes. ??These ? include eburnation and roughened granularity. ??It ? additionally includes a 2.4 cm ovoid sphere of bone and ? cartilage, consistent with a loose (osteochondroid) body. ? Egg And Spice Mixer bone and soft tissue submitted in two ? cassettes with the bone submitted after decalcification. ? SR/lm MICROSCOPIC DESCRIPTION: ? The decalcified sections show a spectrum of degenerative ? changes ranging from mild fibrillation and fragmentation to ? areas of complete cartilaginous erosion. ??The subchondral ? bone is sclerotic and shows medullary fibrosis. ??There are ? several cystic areas bordered by newly formed bone. ??The rest ? of the cancellous bone is unremarkable. ??The medullary cavity ? is populated chiefly by mature adipocytes. ??It also includes ? some histologically benign, hematopoietic tissue. ??The ? synovium is mildly hyperplastic and shows sparse patchy ? lymphocytic infiltrate. ??It also contains at least one small ? rounded focus of chondroid metaplasia. ? MR/lm DIAGNOSIS: ? JOINT, RIGHT KNEE, ARTHROPLASTY: ? -DEGENERATIVE JOINT DISEASE, SEVERE ? -LOOSE BODY (GROSS ONLY) ? [id number], [id number], [id number], [id number], [id number], [id number] COMMENT: ? PROCEDURE: ??Decalcification. ? Pathologist: SUSAN DAVALOS MD Electronic ?signature ? MAR MAR/LM 04/24/14 us Historical Provider LAB PATHOLOGY ORDERABLES Final Result HISTORICAL RESULTS * XR Knee 1 Or 2 VW (04/22/2014 12:39 PM [facility]) Anatomical Region Laterality Modality N/A Radiographic Gina ging 04/22/2014 12:3 9 PM [facility] Narrative 04/22/2014 10:46 PM [facility] XR Knee 1-2 Views R ??[id number] ??Acc#: ??[id number] DATE OF EXAM: ??Nov ??2013 CLINICAL HISTORY: Right knee total arthroplasty. RESULT: AP and lateral views obtained. Right knee total arthroplasty, with radiopaque femoral and tibial components, and post surgical changes of the patella. ??Orthopedic hardware intact. ??No acute fracture seen. ??Gas within the soft tissues is post surgical in nature. ??Some arterial calcification consistent with arteriosclerotic changes. IMPRESSION: 1. RIGHT KNEE TOTAL ARTHROPLASTY. Interpreting Physician: ??ANDIE FITZGERALD M.D. ??Read on: ??Nov ??2013 ??1:08P Transcribed by: ??mb ?? On: Nov ??4 2013 ??2:13P Approved Electronically by: ??ANDIE FITZGERALD M.D. ??on: ??Nov ??2013 10:46P Ordering DR: ??FANNY Attending DR: FRANKI CARD Procedure Note Provider, MD Latasha - 10/06/2016 XR Knee 1-2 Views [id number] Acc#: [id number] DATE OF EXAM: Apr 22 2014 CLINICAL HISTORY: Right knee total arthroplasty. RESULT: AP and lateral views obtained. Right knee total arthroplasty, withradiopaque femoral and tibial components, and post surgical changes of thepatella. Orthopedic hardware intact. No acute fracture seen. Gas withinthe soft tissues is post surgical in nature. Some arterial calcificationconsistent with arteriosclerotic changes. IMPRESSION: 1. RIGHT KNEE TOTAL ARTHROPLASTY. Interpreting Physician: ANDIE FITZGERALD M.D. Read on: Apr 22 2014 1:08P Transcribed by: jose carlos On: Apr 22 2014 2:13P Approved Electronically by: ANDIE FITZGERALD M.D. on: Apr 22 2014 10:46P Ordering DR: FANNY Attending DR: FRANKI CARD us Historical Provider MD BETTS XR PROCEDURES Final R esult documented in this encounter Visit Diagnoses Diagnosis Localized osteoarthrosis, lower leg Localized osteoarthrosis not specified whether primary or secondary, lower leg Anemia Unspecified anemia Essential hypertension Unspecified essential hypertension Esophageal reflux Personal history of malignant melanoma of skin Person living alone documented in this encounter Care Teams Coal Hauler Relationship Specialty Start Date End Date Pepper Morgan MD PCP - General 01/13/14 05/11/14 documented as of this encounter
--- OUTSIDE RECORDS SUMMARY | 2024-06-18 19:05 | XMS_ITS | Encounter Summary ---
Author Organization [facility] Facility Care Team Providers Care Reel Hooker Name Role Phone Pepper Morgan MD Primary Care Provider +1- [phone] Encounter Details Date Type Department Care Team (Late st Contact Info) Description 08/29/2011 - 08/29/2011 11:59 PM T Hospital Encounter 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
--- OUTSIDE RECORDS SUMMARY | 2024-06-18 19:05 | XMS_ITS | Encounter Summary ---
Author Organization [facility] Address [address] [place] [address] Care Team Providers Care Office Analyst Name Role Phone Pepper Morgan MD Primary Care Provider +1- [phone] Encounter Details Date Type Department Care Team (Late st Contact Info) Description 09/02/2013 8:12 PM CDT - 09/03/2013 12:35 AM CDT Hospital Encounter [facility] Chilango, Fartun Walton MD [address] [place] [address] [place] [address] Allergic state; Accident; Unspecified place of occurrence; Cellulitis and abscess of hand, except fingers and thumb; Essential hypertension Social History Tobacco Use Types Packs/Day Years Used Date Smoking Tobacco: Never Assessed Comments Unknown Sex and Gender Information Value Date Recorded Sex Assigned at Not on file 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 Gender Identity Not on file Sexual Orientation Not on file documented as of this encounter Medications at Time of Discharge pramipexole (MIRAPEX) 0.125 mg tablet TAKE 1-2 TABLETS BY MOUTH EVERY DAY 180 1 05/09/2011 03/27/2017 documented as of this encounter Plan of Treatment Not on file documented as of this encounter Visit Diagnoses Diagnosis Allergic state Allergy, unspecified not elsewhere classified Accident Unspecified accident Unspecified place of occurrence Cellulitis and abscess of hand, except fingers and thumb Essential hypertension Unspecified essential hypertension documented in this encounter Care Teams Office Analyst Relationship Specialty Start Date End Date Pepper Morgan MD PCP - General 11/02/11 01/12/14 documented as of this encounter
--- OUTSIDE RECORDS SUMMARY | 2024-06-18 19:05 | XMS_ITS | Encounter Summary ---
Author Organization [facility] Address [address] [place] [address] Care Team Providers Care Radar Air Traffic Controller Name Role Phone Pepper Morgan MD Primary Care Provider [phone]- [phone] Reason for Visit * Reason Comments Pain Encounter Details Date Type Department Care Team (Late st Contact Info) Description 01/17/2017 11:30 AM CDT Office Visit [facility] Orthopedics and Sports Medicine [address] [place] [id number] Damián Chang PA [address] [place] [address] [address] [place] [address] Primary osteoarthritis of left knee (Primary Dx) Social History Tobacco Use Types Packs/Day Years Used Date Smoking Tobacco: Former Smokeless Tobacco: Never Alcohol Use Standard Drinks/Week Comments Yes 0 (1 standard drink = 0.6 oz pur e alcohol) Comments Unknown Sex and Gender Information Value Date Recorded Sex Assigned at Not on file 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 Gender Identity Not on file Sexual Orientation Not on file documented as of this encounter Last Filed Vital Signs Vital Sign Reading Time Taken Comments Blood Pressure 161/89 01/17/2017 11:54 AM CDT Pulse 47 01/17/2017 11:54 AM CDT Temperature - - Respiratory Rate - - Oxygen Saturation - - Inhaled Oxygen Concentration - - Weight 86.2 kg (190 lb) 01/17/2017 11:54 AM CDT Height 152.4 cm (5') 01/17/2017 11:54 AM CDT Body Mass Index 37.11 01/17/2017 11:54 AM CDT documented in this encounter Progress Notes * Damián Chang PA - 01/17/2017 11:30 AM CDTAssociated Order(s): LARGE JOINT ARTHROCENTESIS Images from the original note were not included. NEW PATIENT VISIT Subjective CHIEF COMPLAINT She had concerns including Pain of the Left Knee. HISTORY OF PRESENT ILLNESS Patient here with complaints of left knee pain. Denies any recent direct trauma or injury. States she was walking quite a bit about 1 week ago, following by a day of a lot of sitting. Weigthbearing increase symptoms, rest. Improves them a little. She states pain is achy at rest and at nighttime; sharp with certain movements, climbing stairs, or squatting. Pain is now affecting her quality of life. She had TKA performed on her right knee in 2013. Prior to this she had little relief with injections/therapy. Pain Assessment Pain Assessment: 0-10 Pain Score: 7 PAST MEDCIAL HISTORY She has a past medical history of OTHER MEDICAL (1991); OTHER MEDICAL; OTHER MEDICAL; OTHER MEDICAL; Malignant melanoma ([facility]/HCC); and Superficial basal cell carcinoma (2002). PAST SURGICAL HISTORY She has a past surgical history that includes Breast biopsy (1994); knee arthroscopy (2002); Cholecystectomy (1991); Hand surgery (1975); Other surgical history (1983); Other surgical history (1991);Other surgical history (2002); knee arthroscopy; Cholecystectomy; and Hernia repair. MEDICATIONS She has a current medication list which includes the following prescription(s): aspirin, biotin, cholecalciferol, felodipine, melatonin, aleve, pramipexole, propranolol, doxepin, pepcid complete, fluticasone, and meloxicam. ALLERGIES She is allergic to amlodipine; celecoxib; lisinopril; and sulfa (sulfonamide antibiotics). SOCIAL HISTORY She reports that she has quit smoking. She has quit using smokeless tobacco. She reports that she drinks [...] confusion and hallucinations. Objective PHYSICAL EXAM BP 161/89 Pulse (!) 47 Ht 152.4 cm (5') Wt 86.2 kg (190 lb) BMI 37.11 kg/m?? Right knee Inspection Erythema: absent Cellulitis: absent Swelling: absent Surgical scar/wound: present. The surgical scar/wound is healed and no evidence of infection. Skin temperature: normal Alignment: neutral Palpation Tenderness: absent. Range of motion The patient has normal range of motion of the right knee. The patient does not have pain with range of motion of the right knee. Active extension: 0 Active flexion: 116-120 Extensor lag: no. Stability ML stability: stable Strength The patient has 5/5 strength thoughout right knee. Neurovascular The patient has normal vascular on the right side of their body. The patient has normal sensation on the right side of their body. Left knee Inspection Erythema: absent Cellutlis: absent Swelling: absent Alignment: varus Palpation Tenderness: absent. The tenderness is located in the condyle, medial joint line and lateral joint line. Crepitus: positive Patella grind: positive Range of motion The patient has reduced range of motion of the left knee. The patient has pain with range of motion of the left knee. Active extension: -5 Active flexion: 121-125 Extensor lag: yes. Stability The patient has normal AP and ML stabiltiy of the left knee. Strength The patient has 5/5 strength throughout. Neurovascular The patient has normal vascular on the left side of their body. The patient has normal sensation on the left side of their body. REVIEW OF X-RAYS/STUDIES/LABS XR Knee Left 4+ View Weightbearing views of the left knee(s) are reviewed and demonstrate no acute fractures or osseous changes. Tricompartmental degenerative changes present with joint space narrowing, osteophyte formation, and subchondral sclerosis. Bone on bone changes are present in the patellofemoral compartment. S/p right TKA changes are also present, with implants appearing in acceptable position. Assessment/Plan Tess was seen today for pain. Diagnoses and all orders for this visit: Primary osteoarthritis of left knee - XR Knee Left 4+ View - Large Joint Arthrocentesis Large Joint (Hip, Knee, Shoulder) Injection Date/Time: 01/17/2017 1:34 PM Performed by: DAMIÁN CHANG Authorized by: ADMIÁN CHANG CPT 88722 - Large Joint Injection: Consent Given by: Patient Site marked: the procedure site was marked Timeout: prior to procedure the correct patient, procedure, and site was verified Verbal consent obtained: Yes Supporting Documentation: Indications: Pain Procedure Details: Location: Knee Site: L knee Prep: patient was prepped and draped in usual sterile fashion Needle Size: 22 G Approach: Superior Medications: 3 mL lidocaine 20 mg/mL (2 %); 40 mg methylPREDNISolone acetate 80 mg/mL Patient tolerance: Patient tolerated the procedure well with no immediate complications PLAN Discussed and reviewed patient's images/studies. We reviewed risks vs. Benefits of conservative vs.Surgical management for knee osteoarthritis. Patient elected to proceed with conservative treatmenttoday consisting of steroid injection. We reduced dose as she's had adverse reaction to high steroid doses in the past. She tolerated well and post injection instructions provided. She will f/u prn and was advised to consider consultation with Dr. Garibay if injection does not help. Questions answered and patient expressed full understanding of treatment plan. TEO Kang documented in this encounter Plan of Treatment Not on file documented as of this encounter Procedures Procedure Name Priority Date/Time Associated Diagnosis Comments NC ARTHROCENTESIS ASPIR&/INJ MAJOR JT/BURSA W/O US Routine 01/29/2017 3:08 PM CDT Primary osteoarthritis of left knee XR KNEE LEFT 4 OR MORE VIEWS Schedule Routine, Read Routine (OP Routine) 01/17/2017 11:37 AM CDT Primary osteoarthritis of left knee documented in this encounter Results * NC ARTHROCENTESIS ASPIR&/INJ MAJOR JT/BURSA W/O US (01/29/2017 3:08 PM CDT) Narrative Damián Chang PA - 01/29/2017 3:08 PM CDT TEO Kang ? 01/29/2017 ??3:08 PM Large Joint (Hip, Knee, Shoulder) Injection Date/Time: 01/17/2017 1:34 PM Performed by: DAMIÁN CHANG Authorized by: DAMIÁN CHANG CPT 59695 - Large Joint Injection: ??Consent Given by: ??Patient ??Site marked: the procedure site was marked ?Timeout: prior to procedure the correct patient, procedure, and site was verified ?Verbal consent obtained: Yes ?? Supporting Documentation: ??Indications: ??Pain Procedure Details: ??Location: ??Knee ??Site: ??L knee ??Prep: patient was prepped and draped in usual sterile fashion ?Needle Size: ??22 G ??Approach: ??Superior ??Medications: ??3 mL lidocaine 20 mg/mL (2 %); 40 mg methylPREDNISolone acetate 80 mg/mL ??Patient tolerance: ??Patient tolerated the procedure well with no immediate complications Damián BRUCE IN CLINIC/BEDSIDE ORDER CLAIRE Final Result * XR Knee Left 4+ View (01/17/2017 11:37 AM CDT) Anatomical Region Laterality Modality Lower Extremities, Knee Left Digital Radiography Narrative 01/29/2017 3:08 PM CDT Weightbearing views of the left knee(s) are reviewed and demonstrate no acute fractures or osseous changes. ??Tricompartmental degenerative changes present with joint space narrowing, osteophyte formation, and subchondral sclerosis. ??Bone on bone changes are present in the patellofemoral compartment. ??S/p right TKA changes are also present, with implants appearing in acceptable position. ?? Damián BRUCE IMG XR PROCEDURES Final Result documented in this encounter Visit Diagnoses Diagnosis Primary osteoarthritis of left knee- Primary documented in this encounter Administered Medications Inactive Administered Medications - up to 3 most recent administrations Medication Order MAR Action Action Date Dose Rate Site lidocaine (XYLOCAINE) 20 mg/mL (2 %) injection 3 mL 3 mL, One-Time Injection, Starting on Mon01/17/17 at 1334, For 1 dose, Indications: Administration of Local AnesthesiaIndications:Administratio n of Local Anesthesia Given 01/17/2017 1:34 PM CDT 3 mL methylPREDNISolone acetate (DEPO-medrol) injection 40 mg 40 mg, intra-articular, One-Time Injection, Starting on Mon01/17/17 at 1334, For 1 doseIndications:Primary osteoarthritis of left knee Given 01/17/2017 1:34 PM CDT 40 mg documented in this encounter Discontinued Medications Medication Sig Discontinue Reason Start Date End Da te felodipine (PLENDIL) 2.5 mg 24 hr tablet take 1 tablet by oral route every day Therapy completed 01/19/2015 01/17/2017 melatonin 10 mg tablet i qhs prn Duplicate order 09/26/2016 7 lidocaine (XYLOCAINE) 5 % ointment Therapy completed 10/20/2016 01/17/2017 naproxen (ALEVE) 220 mg tablet take 2 tablet by oral route every day as needed Duplicate order 07/30/2014 01/17/2017 naproxen sodium (ALEVE) 220 mg capsule take 2 Capsule by Oral route every 4 - 6 days Duplicate order 01/13/2014 01/17/2017 omeprazole (PriLOSEC) 20 mg capsule take 1 capsule by oral route every day before a meal Therapy completed 01/19/2015 01/17/2017 pramipexole (MIRAPEX) 0.125 mg tablet take 1 tablet by oral route 3 times every day Duplicate order 01/13/2014 01/17/2017 propranolol (INDERAL) 20 mg tablet take 1 tablet by oral route 3 times every day Duplicate order 01/13/2014 01/17/2017 documented as of this encounter Historical Medications * This list may reflect changes made after this encounter. Medication Sig Dispense Quantity Refills Last Filled Start D ate End Date lidocaine (XYLOCAINE) 5 % ointment 5 10/20/2016 01/17/2017 added in this encounter Care Teams Radar Air Traffic Controller Relationship Specialty Start Date End Date Pepper Morgan MD PCP - General 09/16/16 documented as of this encounter
--- OUTSIDE RECORDS SUMMARY | 2024-06-18 19:05 | XMS_ITS | Encounter Summary ---
Author Organization [facility] Healthcare Address [address] [place] [address] Care Team Providers Care Fire Controlman Name Role Phone Zachary Pelaez MD Primary Care Provider [phone]- [phone] Encounter Details Date Type Department Care Team (Late st Contact Info) Description 04/11/2014 9:03 AM CDT - 04/11/2014 11:59 PM CDT Hospital Encounter [facility] Hank Benitez MD [address] [place] [address] [address] [address] Other specified pre-operative examination; Osteoarthrosis involving lower leg Social History Tobacco Use Types Packs/Day Years Used Date Smoking Tobacco: Former Alcohol Use Standard Drinks/Week Comments Yes 0 (1 standard drink = 0.6 oz pur e alcohol) Comments Unknown Sex and Gender Information Value Date Recorded Sex Assigned at Not on file Legal Sex Female 4:33 AM BALLASTER Gender Identity Not on file Sexual Orientation [...] 02/12/2014 03/27/2017 documented as of this encounter Plan of Treatment Not on file documented as of this encounter Procedures Procedure Name Priority Date/Time Associated Diagnosis Comments URINALYSIS Routine 04/11/2014 9:20 AM CDT SERUM COMPREHENSIVE METABOLIC PANEL Routine 04/11/2014 9:15 AM CDT PLASMA PROTHROMBIN TIME (PT) Routine 04/11/2014 9:15 AM CDT PLASMA PARTIAL THROMBOPLASTIN TIME (PTT) Routine 04/11/2014 9:15 AM CDT BLOOD WBC CELL MORPHOLOGIC EXAM, AUTO Routine 04/11/2014 9:15 AM CDT BLOOD CELL COUNT (CBC) Routine 4 9:15 AM CDT ELECTROCARDIOGRAPHY (ECG) 04/11/2014 MICROBIOLOGY SUMMARY Routine 04/11/2014 12:00 AM CDT DISCHARGE LABORATORY CUMULATIVE REPORT Routine 04/11/2014 12:00 AM CDT documented in this encounter Results * Urinalysis (04/11/2014 9:20 AM CDT) Color, ur YELLOW YELLOW HISTORICAL RESULTS Clarity, ur CLEAR CLEAR HISTORIC AL RESULTS Specific gravity, ur 1.026 1.003 - 1.030 gu HISTORICAL RESULTS Leukocyte esterase, ur Negative NEGATIVE HISTORICAL RESULTS Nitrites, ur Negative NEGATIVE HISTORI MICHAEL RESULTS pH, ur 5.5 6.0 HISTORICAL RESULTS Protein, ur Negative NEGATIVE HISTORIC AL RESULTS Glucose, ur Negative NEGATIVE HISTORIC AL RESULTS Ketones, ur Negative NEGATIVE HISTORIC AL RESULTS Urobilinogen, quant, ur 0.2 0.2 - 1.0 mg/dl HISTORICAL RESULTS Bilirubin, ur Negative NEGATIVE HISTOR ICAL RESULTS U Blood Negative NEGATIVE HISTORICAL RESULTS Urine 04/11/2014 9:20 AM CDT Hank Garibay MD LAB BLOOD ORDERABLES Final R esult Performing Organization Address [facility] de Phone Number HISTORICAL RESULTS * Plasma partial thromboplastin time (PTT) (04/11/2014 9:15 AM CDT) APTT 29.8 -<36. seconds HISTOR ICAL RESULTS Plasma 04/11/2014 9:15 AM CDT Hank Garibay MD LAB BLOOD ORDERABLES Final R esult Performing Organization Address [facility] de Phone Number HISTORICAL RESULTS * Plasma prothrombin time (PT) (04/11/2014 9:15 AM CDT) INR 1.03 HISTORICAL RESULTS Comment: RECOMMENDED RANGES FOR PROTIME INR: NOTE: THE INR HAS BEEN VALIDATED ONLY FOR PATIENTS ON STABLE ORAL ?ANTICOAGULANT THERAPY. ?2.0 - 3.0 ??PROPHYLAXIS OF VENOUS THROMBOSIS (HIGH RISK SURGERY) ?2.0 - 3.0 ??TREATMENT OF VENOUS THROMBOSIS ?2.0 - 3.0 ??TREATMENT OF PULMONARY EMBOLISM ?2.0 - 3.0 ??PREVENTION OF SYSTEMIC EMBOLISM ? TISSUE HEART VALVES ? AMI (TO PREVENT SYSTEMIC EMBOLISM)* ? VALVULAR HEART DISEASE ? ATRIAL FIBRILLATION ?2.5 - 3.5 ??MECHANICAL PROSTHETIC VALVES (HIGH RISK) ?2.0 - 3.0 ??BILEAFLET MECHANICAL VALVE IN AORTIC POSITION *If oral anticoagulant therapy is elected to prevent recurrent myocardial infarction, an INR of 2.5 to 3.5 is recommended, consistent with Food and Drug Administration recommendations. Prothrombin time (PT) 13.1 10.9 - 14.8 seconds HISTORICAL RESULTS Plasma 04/11/2014 9:15 AM CDT Hank Garibay MD LAB BLOOD ORDERABLES Final R esult HISTORICAL RESULTS * Blood cell count (CBC) (04/11/2014 9:15 AM CDT) WBC 5.8 4.0 - 10.5 K/cumm HISTORICAL RESULTS RBC 4.88 4.20 - 5.40 M/cumm HISTORICAL RESULTS Hgb 13.8 12.0 - 16.0 g/dl HISTORICAL RESULTS Hct 42.6 37.0 - 47.0 % HISTORICAL RESULTS MCV 87.3 77.0 - 97.0 fl HISTORICAL RESULTS MCH 28.3 23.0 - 34.0 pg HISTORICAL RESULTS MCHC 32.4 32.0 - 36.0 g/dl HISTORICAL RESULTS Rdw 13.9 11.5 - 14.5 % HISTORICAL RESULTS Platelets 271 150 - 400 K/cumm HISTORICAL RESULTS MPV 9.9 7.4 - 10.4 fl HISTORICAL RESULTS Blood specimen (specimen) 04/11/2014 9:15 AM CDT Hank Garibay MD LAB BLOOD ORDERABLES Final R esult HISTORICAL RESULTS * (ABNORMAL) Blood WBC cell morphologic exam, auto (04/11/2014 9:15 AM CDT) Lymphocytes 18.7(L) 25.0 - 33.0 % HISTORICAL RESULTS Monos 8.8 0.0 - 13.0 % HISTORICAL RESULTS Neutrophils 59.9 54.0 - 69.0 % HISTORICAL RESULTS Eosinophils 10.3(H) 0.0 - 10.0 % HISTORICAL RESULTS Basophils 2.1(H) 0.0 - 1.0 % HISTORICAL RESULTS Immature granulocytes 0.2 0.0 - 1.0 % HISTORICAL RESULTS Lymphocytes, abs 1.1(L) 1.2 - 3.4 K/cumm HISTORICAL RESULTS Monocytes, absolute 0.5(L) 1.1 - 1.9 K/cumm HISTORICAL RESULTS Neutrophils, abs 3.5 1.4 - 6.5 K/cumm HISTORICAL RESULTS Eosinophils, abs 0.6 0.0 - 0.7 cells/cum m HISTORICAL RESULTS Basophils, abs 0.1 0.0 - 0.2 K/cumm HISTORICAL RESULTS Immature granulocyte, abs 0.0 0.0 - 0.0 K/cumm HISTORICAL RESULTS Blood specimen (specimen) 04/11/2014 9:15 AM CDT Hank Garibay MD LAB BLOOD ORDERABLES Final R esult HISTORICAL RESULTS * (ABNORMAL) Serum comprehensive metabolic panel (04/11/2014 9:15 AM CDT) BUN 15.0 6.0 - 23.0 mg/dl HISTORICAL RESULTS Sodium 140 134 - 143 mmol/L HISTORICAL RESULTS Potassium, sr 3.7 3.4 - 5.0 mmol/L HISTORICAL RESULTS Chloride 104 99 - 108 mmol/L HISTORICAL RESULTS CO2 31 23 - 32 mmol/L HISTORICAL RESULTS Glucose 69(L) 70 - 199 mg/dl HISTORICAL RESULTS Comment: [...] glucose. New reference ranges implemented 04/29/2013. Creatinine 0.89 0.60 - 1.30 mg/dl HISTORICAL RESULTS BUN/creat ratio 17 10 - 20 HIST ORICAL RESULTS A. gap 9 7 - 14 mmol/L HISTORICAL RESULTS Protein, sr 6.5 6.4 - 8.0 g/dl HISTORICAL RESULTS Alb 3.3 3.3 - 4.5 g/dl HISTORICAL RESULTS Alb/glob ratio 1.0(L) 1.1 - 1.8 HISTO RICAL RESULTS Calcium 8.7 8.6 - 9.8 mg/dl HISTORICAL RESULTS Bilirubin 0.3 0.0 - 1.1 mg/dl HISTORICAL RESULTS Alk phos 143(H) 44 - 125 Units/L HISTORICAL RESULTS AST 15 5 - 40 Units/L HISTORICAL RESULTS ALT 17 15 - 70 Units/L HISTORICAL RESULTS Serum 04/11/2014 9:15 AM CDT us Hank Garibay MD LAB BLOOD ORDERABLES Final R esult HISTORICAL RESULTS * Microbiology Summary (04/11/2014 12:00 AM CDT) 04/11/2014 Narrative HISTORICAL RESULTS - 04/13/2014 2:46 AM CDT ? [facility] ?CLINICAL LABORATORIES ? MICROBIOLOGY REPORT PATIENT NAME: ??CLAUDIA KOO I ? MED RECORD#: ??[id number] BIRTHDATE: ??1935 ?? AGE: ??78 YRS SEX: F ?PATIENT#: ? [id number] ADMITTING DR: ??HANK GARIBAY MD ? ATTENDING DR: ??ZACHARY PELAEZ MD ?ACCESSION#: ?? [id number] CREATED: ??04/13/14 ?? 0235 ? ADMIT DATE: ?? 04/11/14 ? MICRO - MISCELLANEOUS STAPHYLOCOCCUS SCREEN ? Collected: 04/11/14 0915 ? Received: 04/11/14 1020 Source: NARES ? Started: 04/11/14 1037 ?Nares ?04/12/14627 ? NO METHICILLIN RESISTANT STAPH AUREUS CULTURED ?? END OF CHART us Historical Provider MD LAB MICROBIOLOGY - GENERA L ORDERABLES Final Result HISTORICAL RESULTS * Discharge Laboratory Cumulative Report (04/11/2014 12:00 AM CDT) 04/11/2014 Narrative HISTORICAL RESULTS - 04/13/2014 2:35 AM CDT Patient No: [id number] ? [facility] Patient Name: CLAUDIA KOO I ? [facility] Age: 78 YRS ?: 1935 ?Sex:F ?[address] )[id number] ?? Adm Dt: 04/11/2014 ?[place] ??[id number] Created: 04/13/2014 ??0235 ?? Pt. Type: R ? Discharge Dt: 04/11/2014 ? Pathologists: Jenny Aguirre MD Admit Attend : ZACHARY PELAEZ MD ? BLOOD CELL COUNTS ?Collection Date: ?04/11/14 ?Collection Time: ?0915 ? Ref Range: ?? Units: [4.00-10.50] /CMM ? WBC X 10^3 ?5.82 [4.20-5.40] ??/CMM ? RBC X 10^6 ?4.88 [12.0-16.0] ??G/DL ? HGB ? 13.8 [37.0-47.0] ??% ?HCT ? 42.6 [77.0-97.0] ??FL ? MCV ? 87.3 [23.0-34.0] ??PG ? MCH ? 28.3 [32.0-36.0] ??% ?MCHC ?32.4 [11.5-14.5] ??% ?RDW ? 13.9 [150-400] ?? /CMM ? PLT X 10^3 ? 271 ?BLOOD CELL DIFFERENTIAL ?Collection Date: ?14 ?Collection Time: ?0915 ? Ref Range: ?? Units: [54.0-69.0] ??% ?NEUTROPHILS ? 59.9 [25.0-33.0] ??% ?LYMPHOCYTES ? 18.7 L [0.0-13.0] ??% ?MONOCYTES ?8.8 [0.0-10.0] ??% ?EOSINOPHILS ? 10.3 H [0.0-1.0] ?? % ?BASOPHILS ?2.1 H ? /CMM ? A LYMPHOCYTE ? 1.1 L [0.0-1.0] ?? % ?IMM GRAN % ? 0.2 [0.00-0.02] ??/CMM ? A IMM GRAN ?0.01 [1.1-1.9] ?? /CMM ? A MONOCYTE ? 0.5 L [1.4-6.5] ?? /CMM ? A NEUTROPHIL ? 3.5 [0.0-0.7] ?? /CMM ? A EOSINOPHIL ? 0.6 [0.0-0.2] ?? /CMM ? A BASOPHIL ? 0.1 Footnotes and Symbols: L = Low, H = High ?? CONTINUED ?Page: ?? 1 Patient No: [id number] ? [facility] Patient Name: CLAUDIA KOO I ? [facility] Age: 78 YRS ?: 1935 ?Sex:F ?[address] )[id number] ?? Adm Dt: 04/11/2014 ?[place], [place] ??[address] Created: 04/13/2014 ??0235 ?? Pt. Type: R ? Discharge Dt: 04/11/2014 ? Pathologists: Jenny Aguirre MD Admit Attend Dr: ZACHARY PELAEZ MD ? GENERAL CHEMISTRY ?Collection Date: ?04/11/14 ?Collection Time: ?0915 ? Ref Range: ?? Units: [134-143] ?? MMOL/L ? SODIUM ? 140 [3.4-5.0] ?? MMOL/L ? POTASSIUM ?3.7 [99.0-108.0] MMOL/L ? CHLORIDE ? 104.0 [23.0-32.0] ??MMOL/L ? TOTAL CO2 ? 30.7 ?? [7-14] ?MMOL/L ? ANION GAP ?9 ??[70-199] ?? MG/DL ?GLUCOSE ? 69 Lf [6.4-8.0] ?? G/DL ? TOTAL PROTEIN ?6.5 [3.3-4.5] ?? G/DL ? ALBUMIN ?3.3 [1.1-1.8] ?A/G RATIO ?1.0 L [8.6-9.8] ?? MG/DL ?CALCIUM ?8.7 [0.0-1.1] ?? MG/DL ?BILI TOTAL ? 0.3 ??[44-125] ?? U/L ?ALK PHOS ? 143 H ?? [5-40] ?U/L ?AST(SGOT) ? 15 f ??[15-70] ?U/L ?ALT(SGPT) ? 17 f [6.0-23.0] ??MG/DL ?BUN ? 15.0 ??[10-20] ? B/C RATIO ? 17 [0.60-1.30] ??MG/DL ?CREATININE ?0.89 Footnotes and Symbols: L = Low, H = High, f = Footnote GLUCOSE (05/21/13 -- Current) Note:The glucose is assumed non fasting Fastin-99 mg/dl Random: 70-199 mg/dl Either a fasting glucose > 126 mg/dL or a random glucose > 200 mg/dL plus symptoms is diagnostic of diabetes when confirmed on another day. Fasting values > 100 mg/dl but < 125 mg/dL are diagnostic of impaired fasting glucose. New reference ranges implemented 04/29/2013. AST(SGOT) (10/31/13 -- Current) ALT(SGPT) (01/08/13 -- Current) ?? CONTINUED ?Page: ?? 2 Patient No: [id number] ? [facility] Patient Name: CLAUDIA KOO I ? [facility] Age: 78 YRS ?: 1935 ?Sex:F ?[address] )[phone] ?? Adm Dt: 04/11/2014 ?[place] ??[address] Created: 04/13/2014 ??0235 ?? Pt. Type: R ? Discharge Dt: 04/11/2014 ? Pathologists: Jenny Aguirre MD Admit Attend Dr: ZACHARY PELAEZ MD ?COAGULATION ? Units: ?? PROTIME ?INR ?APTT PAT ? Low: ??[10.9-14.8] ? [< ?? 36.0] ? Ref Range: ? SECS ?SECS ? 04/11/14 0915 ?13.1 ? 1.03 f ? 29.8 Footnotes and Symbols: f = Footnote INR (01/06/00 -- Current) RECOMMENDED RANGES FOR PROTIME INR: NOTE: THE INR HAS BEEN VALIDATED ONLY FOR PATIENTS ON STABLE ORAL ?ANTICOAGULANT THERAPY. ?2.0 - 3.0 ??PROPHYLAXIS OF VENOUS THROMBOSIS (HIGH RISK SURGERY) ?2.0 - 3.0 ??TREATMENT OF VENOUS THROMBOSIS ?2.0 - 3.0 ??TREATMENT OF PULMONARY EMBOLISM ?2.0 - 3.0 ??PREVENTION OF SYSTEMIC EMBOLISM ? TISSUE HEART VALVES ? AMI (TO PREVENT SYSTEMIC EMBOLISM)* ? VALVULAR HEART DISEASE ? ATRIAL FIBRILLATION ?2.5 - 3.5 ??MECHANICAL PROSTHETIC VALVES (HIGH RISK) ?2.0 - 3.0 ??BILEAFLET MECHANICAL VALVE IN AORTIC POSITION *If oral anticoagulant therapy is elected to prevent recurrent myocardial infarction, an INR of 2.5 to 3.5 is recommended, consistent with Food and Drug Administration recommendations. ?? CONTINUED ?Page: ?? 3 Patient No: [id number] ? [facility] Patient Name: CLAUDIA KOO I ? [facility] Age: 78 YRS ?: 1935 ?Sex:F ?[address] )[id number] ?? Adm Dt: 04/11/2014 ?[place], [place] ??[address] Created: 04/13/2014 ??0235 ?? Pt. Type: R ? Discharge Dt: 04/11/2014 ? Pathologists: Jenny Aguirre MD Admit Attend Dr: ZACHARY PELAEZ MD ?URINALYSIS ?Collection Date: ?04/11/14 ?Collection Time: ?0920 ? Ref Range: ?? Units: [YELLOW] ? U COLOR ? YELLOW ??[CLEAR] ? U APPEARANCE ? CLEAR [1.003-1.030] ? U SPEC GRAVITY ? 1.026 [NEGATIVE] ?U LEUKO ESTRASE ? NEGATIVE [NEGATIVE] ?U NITRITE ? NEGATIVE ?? [6.0] ?U PH ? 5.5 [NEGATIVE] ?U PROTEIN ? NEGATIVE [NEGATIVE] ?U GLUCOSE ? NEGATIVE [NEGATIVE] ?U KETONES ? NEGATIVE [0.2- 1.0] ?UROBILINOGEN ? 0.2 [NEGATIVE] ?U BILIRUBIN ? NEGATIVE [NEGATIVE] ?U BLOOD ? NEGATIVE ? MICRO - MISCELLANEOUS STAPHYLOCOCCUS SCREEN ? Collected: 04/11/14 0915 ? Received: 04/11/14 1020 Source: MANJINDER ? Started: 04/11/14 1037 ?Narjaylin ? FINAL REPORT ?04/12/14627 ? NO METHICILLIN RESISTANT STAPH AUREUS CULTURED ?? END OF CHART ? Page: ?? 4 us Historical Provider LAB BLOOD ORDERABLES Farzana l Result HISTORICAL RESULTS * ELECTROCARDIOGRAPHY (ECG) (04/11/2014) Narrative 04/11/2014 Ordered by an unspecified provider. Historical Provider ECG ORDERABLES Final Res ult documented in this encounter Visit Diagnoses Diagnosis Other specified pre-operative examination Osteoarthrosis involving lower leg documented in this encounter Care Teams Fire Controlman Relationship Specialty Start Date End Date Zachary Pelaez MD PCP - General 01/13/14 05/11/14 documented as of this encounter
--- OUTSIDE RECORDS SUMMARY | 2024-06-18 19:05 | XMS_ITS | Encounter Summary ---
Author Organization [facility] Healthcare Address [address] [place] [address] Care Team Providers Care Child Care Counselor Name Role Phone Pepper Morgan MD Primary Care Provider +1- [phone] Encounter Details Date Type Department Care Team (Late st Contact Info) Description 06/05/2014 10:51 AM SPIKE MAKER - 06/05/2014 11:59 PM [facility] Hospital Encounter [facility] Hank Garibay MD [address] [facility] [address] [place] [address] Susan Chang PA [address] [facility] [place] [address] Swelling of limb Social History Tobacco Use Types Packs/Day Years Used Date Smoking Tobacco: Former Alcohol Use Standard Drinks/Week Comments Yes 0 (1 standard drink = 0.6 oz pur e alcohol) Comments Unknown Sex and Gender Information Value Date Recorded Sex Assigned at Not on file Legal Sex Female 4:33 AM SPIKE MAKER Gender Identity Not on file Sexual [...] Procedure Name Priority Date/Time Associated Diagnosis Comments PLASMA C-REACTIVE PROTEIN Routine 06/05/2014 10:56 AM SPIKE MAKER BLOOD ERYTHROCYTE SEDIMENTATION RATE (ESR) Routine 06/05/2014 10:56 AM SPIKE MAKER BLOOD CELL COUNT (CBC), MORPHOLOGIC EXAM Routine 06/05/2014 10:56 AM SPIKE MAKER DISCHARGE LABORATORY CUMULATIVE REPORT 06/05/2014 documented in this encounter Results * Blood erythrocyte sedimentation rate (ESR) (06/05/2014 10:56 AM SPIKE MAKER) Erythrocyte sedimentation rate 14.0 0.0 - 25.0 mm/hr HISTORICAL RESULTS Blood specimen (specimen) 06/05/2014 10:56 AM SPIKE MAKER Susan BRUCE LAB BLOOD ORDERABLES Fi nal Result HISTORICAL RESULTS * Blood cell count (CBC), morphologic exam (06/05/2014 10:56 AM SPIKE MAKER) WBC 7.8 3.8 - 9.8 K/cumm HISTORICAL RESULTS RBC 4.78 4.20 - 5.20 M/cumm HISTORICAL RESULTS Hgb 13.3 12.0 - 15.0 g/dl HISTORICAL RESULTS Hct 41.6 37.0 - 47.0 % HISTORICAL RESULTS MCV 87.0 82.0 - 96.0 fl HISTORICAL RESULTS MCH 27.8 27.0 - 32.0 pg HISTORICAL RESULTS MCHC 32.0 29.0 - 35.0 g/dl HISTORICAL RESULTS Platelets 421 150 - 450 K/cumm HISTORICAL RESULTS RDW 44.7 36.4 - 46.3 fl HISTORICAL RESULTS Rdw 14.0 11.5 - 14.5 % HISTORICAL RESULTS MPV 9.7 8.6 - 12.6 fl HISTORICAL RESULTS Neutrophils 68.3 42.0 - 85.0 % HISTORICAL RESULTS Neutrophils, abs 5.3 2.1 - 8.5 K/cumm HISTORICAL RESULTS Lymphocytes 17.0 16.0 - 52.0 % HISTORICAL RESULTS Lymphocytes, abs 1.3 0.8 - 5.2 K/cumm HISTORICAL RESULTS Monos 8.5 1.0 - 13.0 % HISTORICAL RESULTS Monocytes, absolute 0.7 0.0 - 1.3 K/cumm HISTORICAL RESULTS Eosinophils 5.5 0.0 - 7.0 % HISTORICAL RESULTS Eosinophils, abs 0.4 0.0 - 0.7 K/cumm HISTORICAL RESULTS Basophils 0.4 0.0 - 4.0 % HISTORICAL RESULTS Basophils, abs 0.0 0.0 - 0.4 K/cumm HISTORICAL RESULTS Young granulocytes, % 0.3 0.0 - 1.0 % HISTORICAL RESULTS Young granulocyte 0.02 0.00 - 0.10 K/cumm HISTORICAL RESULTS NRBC 0.0 0.0 - 0.2 #/100 WBC HISTORICAL RESULTS NRBC, abs 0.00 0.00 - 0.01 K/cumm HISTORICAL RESULTS Blood specimen (specimen) 06/05/2014 10:56 AM SPIKE MAKER Susan BRUCE LAB BLOOD ORDERABLES Fi nal Result HISTORICAL RESULTS * Plasma C-reactive protein (06/05/2014 10:56 AM SPIKE MAKER) C-RP 6.9 0.0 - 9.9 mg/L HISTORICAL RESULTS Plasma 06/05/2014 10:5 6 AM SPIKE MAKER Susan BRUCE LAB BLOOD ORDERABLES Fi nal Result HISTORICAL RESULTS * DISCHARGE LABORATORY CUMULATIVE REPORT (06/05/2014) Narrative 06/05/2014 Ordered by an unspecified provider. Historical Provider LAB BLOOD ORDERABLES Farzana l Result documented in this encounter Visit Diagnoses Diagnosis Swelling of limb documented in this encounter Care Teams Child Care Counselor Relationship Specialty Start Date End Date Pepper Morgan MD PCP - General 05/12/14 06/05/14 documented as of this encounter
--- OUTSIDE RECORDS SUMMARY | 2024-06-18 19:05 | XMS_ITS | Encounter Summary ---
Author Organization [facility] Healthcare Address [address] [place] [address] Care Team Providers Care Filament Coil Winder Name Role Phone Pepper Morgan MD Primary Care Provider +1- [phone] Encounter Details Date Type Department Care Team (Late st Contact Info) Description 11/05/2016 3:07 PM CDT - 11/05/2016 5:16 PM CDT Emergency [facility] Emergency Department [address] [place] [address] Margie Wright MD [address] [place] [id number] Discharge Disposition: Discharge to home or self care Social History Tobacco Use Types Packs/Day Years Used Date Smoking Tobacco: Former Alcohol Use Standard Drinks/Week Comments Yes 0 (1 standard drink = 0.6 oz pur e alcohol) Comments Unknown Sex and Gender Information Value Date Recorded Sex Assigned at Not on file Legal Sex 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 0 0 07/23/2014 7 naproxen (ALEVE) 220 mg tablet take 2 tablet by oral route every day as needed 0 0 07/30/2014 7 naproxen (ALEVE) 220 mg tablet take 2 tablet by oral route every day as needed 0 0 07/30/2014 7 naproxen sodium (ALEVE) 220 mg capsule take 2 Capsule by Oral route every 4 - 6 days 0 0 01/13/2014 7 omeprazole (PriLOSEC) 20 mg capsule take 1 capsule by oral route every day before a meal 0 0 01/19/2015 7 pramipexole (MIRAPEX) 0.125 mg tablet take 1 tablet by oral route 3 times every day 0 0 01/13/2014 7 pramipexole (MIRAPEX) 0.125 mg tablet TAKE 1-2 TABLETS BY MOUTH EVERY DAY 180 1 05/09/2011 7 propranolol (INDERAL) 20 mg tablet take 1 tablet by oral route 3 times every day 0 0 01/13/2014 7 propranolol (INDERAL) 20 mg tablet TAKE 1 TABLET BY ORAL ROUTE 2 TIMES EVERY DAY 180 1 02/12/2014 7 documented as of this encounter Discharge Disposition Disposition Code Departure Means Destination Discharge to home or self care documented in this encounter Plan of Treatment Not on file documented as of this encounter Procedures Procedure Name Priority Date/Time Associated Diagnosis Comments XR KNEE 4+ VW Routine 11/05/2016 9:50 PM CDT documented in this encounter Results * XR Knee 4+ VW (11/05/2016 9:50 PM CDT) Anatomical Region Laterality Modality N/A Radiographic Gina ging 11/05/2016 9:50 PM CDT Narrative 11/05/2016 9:50 PM CDT XR Knee Min 4 Views R ??[id number] ??Acc#: ??[id number] DATE OF EXAM: ??Nov 05 2016 ?? XR Knee Min 4 Views R ??[id number] HISTORY: Fall. ??Right knee pain. COMPARISON: 04/22/2014. FINDINGS: Right knee total arthroplasty. ??No acute fracture or subluxation identified. ??Evidence of joint effusion. . IMPRESSION: 1. ??NO ACUTE FRACTURE IDENTIFIED. 2. ??EVIDENCE OF JOINT EFFUSION. 3. ??RIGHT KNEE TOTAL ARTHROPLASTY. Electronically signed by: Andie Fitzgerald M.D Interpreting Physician: ??ANDIE FITZGERALD M.D. ??Read on: ??Nov 05 2016 ??7:09P Transcribed by: ??PSC ??On: Nov 05 2016 ??7:07P Approved Electronically by: ??ANDIE FITZGERALD M.D. ??on: ??Nov 05 2016 ??7:07P Ordering DR: JOHN BRITO Attending DR: DR MARGIE WRIGHT Attending: ??DR MARGIE WRIGHT Requesting: ??JOHN BRITO Requesting Fax: ??-- Attending Fax: ??-- Attending ID: ??[id number] Requesting ID: ??[id number] Report To 1 ID: ??[id number] Report To 1 Name: ??DR MARGIE WRIGHT Report To 1 FAX: ??-- NextGen Order #: ?? Procedure Note Miscellaneous, Not In File / Provider, MD Latasha - 11/13/2016 XR Knee Min 4 Views [id number] Acc#: [id number] DATE OF EXAM: Nov 05 2016 XR Knee Min 4 Views [id number] HISTORY: Fall. Right knee pain. COMPARISON: 04/22/2014. FINDINGS: Right knee total arthroplasty. No acute fracture or subluxation identified. Evidence of joint effusion. . IMPRESSION: 1. NO ACUTE FRACTURE IDENTIFIED. 2. EVIDENCE OF JOINT EFFUSION. 3. RIGHT KNEE TOTAL ARTHROPLASTY. Electronically signed by: Andie Fitzgerald M.D Interpreting Physician: ANDIE FITZGERALD M.D. Read on: Nov 05 2016 7:09P Transcribed by: [facility] On: Nov 05 2016 7:07P Approved Electronically by: ANDIE FITZGERALD M.D. on: Nov 05 2016 7:07P Ordering DR: JOHN BRITO Attending DR: DR MARGIE WRIGHT Attending: DR MARGIE WRIGHT Requesting: JOHN BRITO Requesting Fax: -- Attending Fax: -- Attending ID: [id number] Requesting ID: [id number] Report To 1 ID: [id number] Report To 1 Name: DR MARGIE WRIGHT Report To 1 FAX: -- NextGen Order #: us Not In File Miscellaneous IMG XR PROCEDURES Farzana l Result documented in this encounter Visit Diagnoses Not on filedocumented in this encounter Care Teams Filament Coil Winder Relationship Specialty Start Date End Date Pepper Morgan MD PCP - General 09/16/16 documented as of this encounter
--- OUTSIDE RECORDS SUMMARY | 2024-06-18 19:05 | XMS_ITS | Encounter Summary ---
Author Organization [facility] Healthcare Address [address] [place] [address] Care Team Providers Care Newspaper Press Operator Apprentice Name Role Phone Unavailable Primary Care Provider Unavailabl e Encounter Details Date Type Department Care Team (Late st Contact Info) Description 09/24/2008 8:12 AM CDT - 09/24/2008 11:59 PM CDT Hospital Encounter [facility] Social History Tobacco Use Types Packs/Day Years Used Date Smoking Tobacco: Never Assessed Comments Unknown Sex and Gender Information Value Date Recorded Sex Assigned at Not on file Legal Sex Female 4:33 AM ROLL UP OPERATOR Gender Identity Not on file Sexual Orientation Not on file documented as of this encounter Plan of Treatment Not on file documented as of this encounter Visit Diagnoses Not on filedocumented in this encounter
--- OUTSIDE RECORDS SUMMARY | 2024-06-18 19:05 | XMS_ITS | Encounter Summary ---
Author Organization [facility] Facility Care Team Providers Care Senior Electronics Technician Name Role Phone Pepper Morgan MD Primary Care Provider +1- [phone] Encounter Details Date Type Department Care Team (Late st Contact Info) Description 03/21/2012 7:26 AM CDT - 03/21/2012 4:00 PM T Hospital Encounter [facility] WITH [facility] Cleveland Brooks MD [address] [address] Cataract; Esophageal reflux; Essential hypertension; Personal history of malignant melanoma of skin; Encounter for long-term (current) use of aspirin; Encounter for long-term (current) use of other medications Social History Tobacco Use Types Packs/Day Years Used Date Smoking Tobacco: Never Assessed Comments Unknown Sex and Gender Information Value Date Recorded Sex Assigned at Not on file Legal Sex Female 4:33 AM ORGANIZATION DEVELOPMENT CONSULTANT Gender Identity Not on file Sexual Orientation Not on file documented as of this encounter Medications at Time of Discharge pramipexole (MIRAPEX) 0.125 mg tablet TAKE 1-2 TABLETS BY MOUTH EVERY DAY 180 1 05/09/2011 03/27/2017 documented as of this encounter Plan of Treatment Not on file documented as of this encounter Visit Diagnoses Diagnosis Cataract Unspecified cataract Esophageal reflux Essential hypertension Unspecified essential hypertension Personal history of malignant melanoma of skin Encounter for long-term (current) use of aspirin Encounter for long-term (current) use of other medications documented in this encounter Care Teams Senior Electronics Technician Relationship Specialty Start Date End Date Pepper Morgan MD PCP - General 11/02/11 01/12/14 documented as of this encounter
--- OUTSIDE RECORDS SUMMARY | 2024-06-18 19:05 | XMS_ITS | Encounter Summary ---
Author Organization [facility] Healthcare Address [address] [place] [address] Care Team Providers Care Equipment Maintenance Engineer Name Role Phone Pepper Morgan MD Primary Care Provider +1- [phone] Encounter Details Date Type Department Care Team (Late st Contact Info) Description 09/22/2013 10:00 PM CDT - 09/22/2013 11:24 PM CDT Hospital Encounter [facility] Garrick Khan MD [address] [place] [address] [place] [address] Angioneurotic edema; Essential hypertension; Accident; Unspecified place of occurrence Social History Tobacco Use Types Packs/Day Years Used Date Smoking Tobacco: Never Assessed Comments Unknown Sex and Gender Information Value Date Recorded Sex Assigned at Not on file Legal Sex Female 4:33 AM MOLDER 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 Gender Identity Not on file Sexual Orientation Not on file documented as of this encounter Medications at Time of Discharge pramipexole (MIRAPEX) 0.125 mg tablet TAKE 1-2 TABLETS BY MOUTH EVERY DAY 180 1 05/09/2011 03/27/2017 documented as of this encounter Plan of Treatment Not on file documented as of this encounter Visit Diagnoses Diagnosis Angioneurotic edema Angioneurotic edema not elsewhere classified Essential hypertension Unspecified essential hypertension Accident Unspecified accident Unspecified place of occurrence documented in this encounter Care Teams Equipment Maintenance Engineer Relationship Specialty Start Date End Date Pepper Morgan MD PCP - General 11/02/11 01/12/14 documented as of this encounter
--- OUTSIDE RECORDS SUMMARY | 2024-06-18 19:05 | XMS_ITS | Encounter Summary ---
Author Organization [facility] Healthcare Address [address] [place] [address] Care Team Providers Care Hat Checker Name Role Phone Pepper Morgan MD Primary Care Provider +1- [phone] Encounter Details Date Type Department Care Team (Late st Contact Info) Description 05/30/2014 11:36 AM RESIDENCE SUPERVISOR - 05/30/2014 11:59 PM RESIDENCE SUPERVISOR Hospital Encounter [facility] Hank Garibay MD [address] [place] [address] DR WARNER KRISHNAN [address] [place] [address] Chester Brannon PA [address] [place] [address] [place] [address] Aftercare following joint replacement; Swelling of limb Social History Tobacco Use Types Packs/Day Years Used Date Smoking Tobacco: Former Alcohol Use Standard Drinks/Week Comments Yes 0 (1 standard drink = 0.6 oz pur e alcohol) Comments Unknown Sex and Gender Information Value Date Recorded Sex Assigned at Not on file Legal Sex Female 4:33 AM RESIDENCE SUPERVISOR Gender Identity Not on file Sexual [...] Associated Diagnosis Comments PLASMA C-REACTIVE PROTEIN Routine 05/30/2014 11:41 AM RESIDENCE SUPERVISOR BLOOD ERYTHROCYTE SEDIMENTATION RATE (ESR) Routine 05/30/2014 11:41 AM RESIDENCE SUPERVISOR BLOOD CELL COUNT (CBC), MORPHOLOGIC EXAM Routine 05/30/2014 11:41 AM RESIDENCE SUPERVISOR DISCHARGE LABORATORY CUMULATIVE REPORT 05/30/2014 documented in this encounter Results * Blood erythrocyte sedimentation rate (ESR) (05/30/2014 11:41 AM RESIDENCE SUPERVISOR) Erythrocyte sedimentation rate 12.0 0.0 - 25.0 mm/hr HISTORICAL RESULTS Blood specimen (specimen) 05/30/2014 11:41 AM RESIDENCE SUPERVISOR us Historical Provider LAB BLOOD ORDERABLES Farzana hernandez Result HISTORICAL RESULTS * Blood cell count (CBC), morphologic exam (05/30/2014 11:41 AM RESIDENCE SUPERVISOR) WBC 7.9 3.8 - 9.8 K/cumm HISTORICAL RESULTS RBC 4.86 4.20 - 5.20 M/cumm HISTORICAL RESULTS Hgb 13.4 12.0 - 15.0 g/dl HISTORICAL RESULTS Hct 42.5 37.0 - 47.0 % HISTORICAL RESULTS MCV 87.4 82.0 - 96.0 fl HISTORICAL RESULTS MCH 27.6 27.0 - 32.0 pg HISTORICAL RESULTS MCHC 31.5 29.0 - 35.0 g/dl HISTORICAL RESULTS Platelets 392 150 - 450 K/cumm HISTORICAL RESULTS RDW 44.3 36.4 - 46.3 fl HISTORICAL RESULTS Rdw 13.9 11.5 - 14.5 % HISTORICAL RESULTS MPV 9.7 8.6 - 12.6 fl HISTORICAL RESULTS Neutrophils 69.3 42.0 - 85.0 % HISTORICAL RESULTS Neutrophils, abs 5.5 2.1 - 8.5 K/cumm HISTORICAL RESULTS Lymphocytes 17.7 16.0 - 52.0 % HISTORICAL RESULTS Lymphocytes, abs 1.4 0.8 - 5.2 K/cumm HISTORICAL RESULTS Monos 7.2 1.0 - 13.0 % HISTORICAL RESULTS Monocytes, absolute 0.6 0.0 - 1.3 K/cumm HISTORICAL RESULTS Eosinophils 5.1 0.0 - 7.0 % HISTORICAL RESULTS Eosinophils, abs 0.4 0.0 - 0.7 K/cumm HISTORICAL RESULTS Basophils 0.3 0.0 - 4.0 % HISTORICAL RESULTS Basophils, abs 0.0 0.0 - 0.4 K/cumm HISTORICAL RESULTS Young granulocytes, % 0.4 0.0 - 1.0 % HISTORICAL RESULTS Young granulocyte 0.03 0.00 - 0.10 K/cumm HISTORICAL RESULTS NRBC 0.0 0.0 - 0.2 #/100 WBC HISTORICAL RESULTS NRBC, abs 0.00 0.00 - 0.01 K/cumm HISTORICAL RESULTS Blood specimen (specimen) 05/30/2014 11:41 AM RESIDENCE SUPERVISOR us Historical Provider LAB BLOOD ORDERABLES Farzana l Result HISTORICAL RESULTS * Plasma C-reactive protein (05/30/2014 11:41 AM RESIDENCE SUPERVISOR) C-RP 6.3 0.0 - 9.9 mg/L HISTORICAL RESULTS Plasma 05/30/2014 11:4 1 AM RESIDENCE SUPERVISOR us Historical Provider LAB BLOOD ORDERABLES Farzana l Result HISTORICAL RESULTS * DISCHARGE LABORATORY CUMULATIVE REPORT (05/30/2014) Narrative 05/30/2014 Ordered by an unspecified provider. us Historical Provider LAB BLOOD ORDERABLES Farzana l Result documented in this encounter Visit Diagnoses Diagnosis Aftercare following joint replacement Swelling of limb documented in this encounter Care Teams Hat Checker Relationship Specialty Start Date End Date Pepper Morgan MD PCP - General 05/12/14 06/05/14 documented as of this encounter
--- OUTSIDE RECORDS SUMMARY | 2024-06-18 19:05 | XMS_ITS | Encounter Summary ---
Author Organization [facility] Address [address] [place] [address] Care Team Providers Care Delivery Crew Member Name Role Phone Pepper Morgan MD Primary Care Provider +1- [phone] Encounter Details Date Type Department Care Team (Late st Contact Info) Description 12/25/2013 10:28 AM CDT - 12/25/2013 12:29 PM CDT Hospital Encounter [facility] Anton Ann MD Cysts of eyelids; Personal history of malignant melanoma of skin Social History Tobacco Use Types Packs/Day Years Used Date Smoking Tobacco: Never Assessed Comments Unknown Sex and Gender Information Value Date Recorded Sex Assigned at Not on file Legal Sex Female 4:33 AM BUOY TENDER Gender Identity Not on file Sexual Orientation Not on file documented as of this encounter Medications at Time of Discharge pramipexole (MIRAPEX) 0.125 mg tablet TAKE 1-2 TABLETS BY MOUTH EVERY DAY 180 1 05/09/2011 03/27/2017 documented as of this encounter Miscellaneous Notes * Op Note - ProviderLatasha MD - 12/25/2013 12:00 AM CDT OPERATIVE REPORT Patient: CLAUDIA KOO I. Account: [id number] Room No: 175-25 : 1935 Patient Type: SDS Attend.: Anton Ann M.D. Admit Date: 12/25/2013 Surg.: Anton Ann M.D. Disch. Date: 12/25/2013 DATE OF OPERATION: 12/25/2013 PREOPERATIVE DIAGNOSIS: Pigmented lesion, left lower eyelid lateral part. POSTOPERATIVE DIAGNOSIS: 1. Pigmented lesion, left lower eyelid lateral part, 1 x 0.5 cm. 2. Secondary surgical defect, left lower lateral eyelid, 1 x 1 cm. ANESTHESIA: 0.5% Xylocaine with epinephrine. OPERATION PERFORMED: 1. Excision of pigmented lesion, left lower eyelid lateral part, with primary surgical defect of 1 x 0.5 cm. 2. Reconstruction of secondary surgical defect, left lateral lower eyelid, 1 x 1 cm, with adjacent tissue transfer. HISTORY AND FINDINGS: This 78-year-old female has had this pigmented lesion on the left lower eyelid lateral part for some months, and she is concerned about it. This has features of dysplasia. She had a malignant melanoma many years ago on the left upper extremity and reports at the time she had numerous more surgeries on the face and nose, so she was brought in for management of this pigmented lesion. DESCRIPTION OF PROCEDURE: She was brought to the operating room and positioned supine on the table. 1. The area was identified. It was cleansed, prepared and draped with sterile towels in the usual manner. The area was outlined. Local anesthesia was infiltrated around the area. This was excised through the skin subcutaneous tissue and removed. Hemostasis was achieved. This left a primary surgical defect of 1 x 0.5 cm. Primary closure would cause a lot of tension and distortion of tissues, particularly the lower eyelid. 2. Adjacent tissue flaps were created, elevated, advanced and transferred to minimize the tension and to cover this secondary surgical defect of the left lateral lower eyelid of 1 x 1 cm with adjacent tissue transfer. Finally, the skin closure was achieved with interrupted nylon sutures. The suture line was covered with surgical dressings. The removed specimen was sent for pathologic examination. Home care instructions were given. Arrangements were made for her to be seen in the office in due course. Anton Ann M.D. KRYS/ TD: 12/25/2013 16:06 Authenticated by Anton Ann MD On 12/26/2013 12:53:28 PM documented in this encounter Plan of Treatment Not on file documented as of this encounter Procedures Procedure Name Priority Date/Time Associated Diagnosis Comments SURGICAL PATHOLOGY REPORT Routine 12/25/2013 1:00 PM CDT DISCHARGE LABORATORY CUMULATIVE REPORT Routine 12/25/2013 12:00 AM CDT documented in this encounter Results * Surgical Pathology Report (12/25/2013 1:00 PM CDT) 12/25/2013 1:00 PM CDT Narrative HISTORICAL RESULTS - 12/26/2013 2:12 PM CDT [facility] Patient No: [id number] Patient Name: CLAUDIA KOO I )[id number] Age: 78 YRS ?? : 1935 Admit Phys: ANTON ANN MD Case #: [id number] ? Date: 12/25/13 SPECIMEN SOURCE: ? Lesion left lateral lower eyelid. CLINICAL INFORMATION AND IMPRESSION: ? Lesion left lateral lower eyelid. GROSS DESCRIPTION: ? The specimen is submitted in a single container labeled ? Claudia Koo and lesion left lateral lower eyelid . ? Submitted is an unoriented ellipse of henson skin that measures ? 0.4 x 0.25 x 0.25 cm. ??An ill-defined, small dark henson macular ? lesion appears to be present on the skin surface. ??The biopsy ? margins are inked and it is bisected, all submitted in one ? cassette. ?SR/lm MICROSCOPIC DESCRIPTION: ? Microscopic examination of the skin biopsy from the left ? lateral lower eyelid shows sun damaged skin with an ? epidermoid inclusion cyst. ?? OO/lm DIAGNOSIS: ? SKIN, LEFT LATERAL LOWER EYELID, EXCISIONAL BIOPSY: ? -EPIDERMOID INCLUSION CYST ? [id number], [id number], [id number], [id number] ? Pathologist: CAROLANN ELDER MD Electronic ?signature ? OAO OAO/LM 12/26/13 us Historical Provider MD LAB PATHOLOGY ORDERABLES Final Result HISTORICAL RESULTS * Discharge Laboratory Cumulative Report (12/25/2013 12:00 AM CDT) 12/25/2013 Narrative HISTORICAL RESULTS - 12/27/2013 12:37 AM CDT Patient No: [id number] ? [facility] Patient Name: CLAUDIA KOO I ? C Healthcare Age: 78 YRS ?: 1935 ?Sex:F ?[address] )[id number] ?? Adm Dt: 12/25/2013 ?[place], [place] ??[address] Created: 12/27/2013 ??0037 ?? Pt. Type: O ? Discharge Dt: 12/25/2013 ? Pathologists: Jenny Aguirre MD Admit DrAnjali Attend Dr: ANTON ANN MD ?S U R G I C A L ?P A T H O L O G Y ?R E P O R T ? Case #: ?[id number] ? Date: 12/25/13 SPECIMEN SOURCE: ? Lesion left lateral lower eyelid. CLINICAL INFORMATION AND IMPRESSION: ? Lesion left lateral lower eyelid. GROSS DESCRIPTION: ? The specimen is submitted in a single container labeled Claudia Koo and ? lesion left lateral lower eyelid . ??Submitted is an unoriented ellipse of henson ? skin that measures 0.4 x 0.25 x 0.25 cm. ??An ill-defined, small dark henson ? macular lesion appears to be present on the skin surface. ??The biopsy margins ? are inked and it is bisected, all submitted in one cassette. ?SR/lm MICROSCOPIC DESCRIPTION: ? Microscopic examination of the skin biopsy from the left lateral lower eyelid ? shows sun damaged skin with an epidermoid inclusion cyst. ?? OO/lm DIAGNOSIS: ? SKIN, LEFT LATERAL LOWER EYELID, EXCISIONAL BIOPSY: ? -EPIDERMOID INCLUSION CYST ? [id number], [id number], [id number], [id number] ? Pathologist: CAROLANN ELDER MD Electronic signature ? OAO OAO/LM 12/26/13 ?? END OF CHART ? Page: ?? 1 us Historical Provider LAB BLOOD ORDERABLES Farzana l Result Performing Organization Address City/State/[facility] Co de Phone Number HISTORICAL RESULTS documented in this encounter Visit Diagnoses Diagnosis Cysts of eyelids Personal history of malignant melanoma of skin documented in this encounter Care Teams Delivery Crew Member Relationship Specialty Start Date End Date Pepper Morgan MD PCP - General 11/02/11 01/12/14 documented as of this encounter
--- OUTSIDE RECORDS SUMMARY | 2024-06-18 19:05 | XMS_ITS | Encounter Summary ---
Author Organization [facility] Healthcare Address [address] [place] [address] Care Team Providers Care Telesales Consultant Name Role Phone Unavailable Primary Care Provider Unavailabl e Encounter Details Date Type Department Care Team (Late st Contact Info) Description 03/22/2010 3:10 PM CDT - 03/22/2010 11:59 PM CDT Hospital Encounter [facility] [address] [address] Pre-operative examination Social History Tobacco Use Types Packs/Day Years Used Date Smoking Tobacco: Never Assessed Comments Unknown Sex and Gender Information Value Date Recorded Sex Assigned at Not on file Legal Sex Female 4:33 AM PHYSICAL AERODYNAMICIST Gender Identity Not on file Sexual Orientation Not on file documented as of this encounter Plan of Treatment Not on file documented as of this encounter Visit Diagnoses Diagnosis Pre-operative examination Unspecified pre-operative examination documented in this encounter
--- OUTSIDE RECORDS SUMMARY | 2024-06-18 19:05 | XMS_ITS | Encounter Summary ---
Author Organization [facility] Healthcare Address [address] [place] [address] Care Team Providers Care Media Relations Intern Name Role Phone Pepper Morgan MD Primary Care Provider +1- [phone] Encounter Details Date Type Department Care Team (Late st Contact Info) Description 01/20/2014 8:24 AM CDT - 01/20/2014 11:59 PM CDT Hospital Encounter [facility] Hank Benitez MD [address] [place] [address] [address] [address] Osteoarthrosis involving lower leg; Osteoarthrosis, ankle and foot; Osteoarthrosis, pelvic region and thigh Social History Tobacco Use Types Packs/Day Years Used Date Smoking Tobacco: Former Alcohol Use Standard Drinks/Week Comments Yes 0 (1 standard drink = 0.6 oz pur e alcohol) Comments Unknown Sex and Gender Information Value Date Recorded Sex Assigned at Not on file Legal Sex Female 4:33 AM INFORMATICA MDM ARCHITECT Gender Identity Not on file Sexual Orientation Not on file documented as of this encounter Medications at Time of Discharge naproxen sodium (ALEVE) 220 mg capsule take [...] times every day 0 0 01/13/2014 01/17/2017 documented as of this encounter Plan of Treatment Not on file documented as of this encounter Procedures Procedure Name Priority Date/Time Associated Diagnosis Comments CT LOWER EXTREMITY WO CONTRAST Routine 01/20/2014 8:40 AM CDT documented in this encounter Results * CT Lower Extremity WO Contrast (01/20/2014 8:40 AM CDT) Anatomical Region Laterality Modality N/A Computed Tomogra phy 01/20/2014 8:40 AM CDT Narrative 01/20/2014 1:[address] Low Ext [place] R ? [id number] ??Acc#: ??[id number] DATE OF EXAM: ??Jan ??2013 CLINICAL HISTORY: Degenerative arthritis of knee. ??TruMatch protocol. RESULT: Long-leg AP and lateral machine group leader tomographic views as well as axial images of the hip, knee, and lower leg obtained per TruMatch protocol. There is advanced degenerative osteoarthritis of the knee. ??Mild degenerative osteoarthritic changes are noted at the level of the ankle joint. ??There is moderate narrowing of both hip joints. IMPRESSION: 1. DEGENERATIVE OSTEOARTHRITIC CHANGES INVOLVING THE HIPS BILATERALLY WITH MODERATE NARROWING OF BOTH HIP JOINT SPACES. 2. ADVANCED DEGENERATIVE OSTEOARTHRITIS OF THE RIGHT KNEE. 3. MILD DEGENERATIVE OSTEOARTHRITIS OF THE RIGHT ANKLE. Interpreting Physician: ??OLIVA KAPLAN M.D. ??Read on: ??Jan ??4 2013 ??9:00A Transcribed by: ??lai ??On: Jan ??2013 12:44P Approved Electronically by: ??OLIVA KAPLAN M.D. ??on: ??Jan ??2013 ??1:25P Ordering DR: HANK CARD Attending DR: HANK CARD Procedure Note Provider, MD Latasha - 04/20/[address] [place] [id number] Acc#: [id number] DATE OF EXAM: Jan 20 2014 CLINICAL HISTORY: Degenerative arthritis of knee. TruMatch protocol. RESULT: Long-leg AP and lateral machine group leader tomographic views as well as axial imagesof the hip, knee, and lower leg obtained per TruMatch protocol. There isadvanced degenerative osteoarthritis of the knee. Mild degenerativeosteoarthritic changes are noted at the level of the ankle joint. Thereis moderate narrowing of both hip joints. IMPRESSION: 1. DEGENERATIVE OSTEOARTHRITIC CHANGES INVOLVING THE HIPS BILATERALLY WITHMODERATE NARROWING OF BOTH HIP JOINT SPACES. 2. ADVANCED DEGENERATIVE OSTEOARTHRITIS OF THE RIGHT KNEE. 3. MILD DEGENERATIVE OSTEOARTHRITIS OF THE RIGHT ANKLE. Interpreting Physician: OLIVA KAPLAN M.D. Read on: Jan 20 2014 9:00A Transcribed by: lai On: Jan 20 2014 12:44P Approved Electronically by: OLIVA KAPLAN M.D. on: Jan 20 2014 1:25P Ordering DR: HANK CARD Attending DR: HANK CARD us Historical Provider MD BETTS CT PROCEDURES Final R esult documented in this encounter Visit Diagnoses Diagnosis Osteoarthrosis involving lower leg Osteoarthrosis, ankle and foot Osteoarthrosis, unspecified whether generalized or localized, ankle and foot Osteoarthrosis, pelvic region and thigh documented in this encounter Care Teams Media Relations Intern Relationship Specialty Start Date End Date Pepper Morgan MD PCP - General 01/13/14 05/11/14 documented as of this encounter
--- OUTSIDE RECORDS SUMMARY | 2024-06-18 19:05 | XMS_ITS | Encounter Summary ---
Author Organization [facility] Healthcare Address [address] [place] [address] Care Team Providers Care Supervisor Tubing Name Role Phone Unavailable Primary Care Provider Unavailabl e Encounter Details Date Type Department Care Team (Late st Contact Info) Description 09/24/2008 2:39 PM CDT - 09/24/2008 11:59 PM CDT Hospital Encounter [facility] Screening for malignant neoplasm of cervix Social History Tobacco Use Types Packs/Day Years Used Date Smoking Tobacco: Never Assessed Comments Unknown Sex and Gender Information Value Date Recorded Sex Assigned at Not on file Legal Sex Female 4:33 AM INBOUND CUSTOMER SERVICE AGENT Gender Identity Not on file Sexual Orientation Not on file documented as of this encounter Plan of Treatment Not on file documented as of this encounter Visit Diagnoses Diagnosis Screening for malignant neoplasm of cervix Screening for malignant neoplasm of the cervix documented in this encounter
--- OUTSIDE RECORDS SUMMARY | 2024-06-18 19:05 | XMS_ITS | Encounter Summary ---
Author Organization [facility] Healthcare Address [address] [place] [address] Care Team Providers Care Electric Refrigerator Preparer Name Role Phone Pepper Morgan MD Primary Care Provider +1- [phone] Encounter Details Date Type Department Care Team (Late st Contact Info) Description 01/22/2014 7:28 PM CDT - 01/22/2014 11:59 PM CDT Hospital Encounter [facility] Pepper Morgan MD [address] [address] Screening for malignant neoplasm of cervix Social History Tobacco Use Types Packs/Day Years Used Date Smoking Tobacco: Former Alcohol Use Standard Drinks/Week Comments Yes 0 (1 standard drink = 0.6 oz pur e alcohol) Comments Unknown Sex and Gender Information Value Date Recorded Sex Assigned at Not on file Legal Sex Female 4:33 AM HAT BODY INSPECTOR Gender Identity Not on file Sexual [...] Name Priority Date/Time Associated Diagnosis Comments CYTOLOGY 01/22/2014 documented in this encounter Results * Cytology (01/22/2014) Narrative 01/22/2014 Ordered by an unspecified provider. us Historical Provider LAB CYTOLOGY ORDERABLES F inal Result documented in this encounter Visit Diagnoses Diagnosis Screening for malignant neoplasm of cervix Screening for malignant neoplasm of the cervix documented in this encounter Care Teams Electric Refrigerator Preparer Relationship Specialty Start Date End Date Pepper Morgan MD PCP - General 01/13/14 05/11/14 documented as of this encounter
--- OUTSIDE RECORDS SUMMARY | 2024-06-18 19:05 | XMS_ITS | Encounter Summary ---
Author Organization [facility] Facility Care Team Providers Care Wind Farm Support Specialist Name Role Phone Unavailable Primary Care Provider Unavailabl e Encounter Details Date Type Department Care Team (Late st Contact Info) Description 11/13/2007 - 11/13/2007 11:59 PM CDT Hospital [facility] MD [address] [place] [address] Social History Tobacco Use Types Packs/Day Years Used Date Smoking Tobacco: Never Assessed Comments Unknown Sex and Gender Information Value Date Recorded Sex Assigned at Not on file Legal Sex Female 4:33 AM CONTACT MANAGER Gender Identity Not on file Sexual Orientation Not on file documented as of this encounter Plan of Treatment Not on file documented as of this encounter Visit Diagnoses Not on filedocumented in this encounter
--- OUTSIDE RECORDS SUMMARY | 2024-06-18 19:05 | XMS_ITS | Encounter Summary ---
Author Organization [facility] Address [address] [place] [address] Phone Care Team Providers Care Housekeeper Supervisor Name Role Phone Pepper Morgan MD Primary Care Provider [phone] Melissa Hoyt RN Unavailable Hank Garibay MD Unavailable Jacky Murry MD Unavailable [phone] Puma Mckenzie MD Unavailable [phone] Neha Jackson PT Unavailable Unavailable Stalin Arauz MD Unavailable [phone] Tiffany Rojas Unavailable [phone] Klaus Deshpande MD Unavailable [phone] Andrea Waddell RN Unavailable [phone] Encounter Details Date Type Department Care Team (Late st Contact Info) Description 01/17/2017 Orders Only [facility] [address] [place] [address] Pepper Morgan MD [address] [place] [address] Mixed hyperlipidemia (Primary Dx) Social History Tobacco Use Types Packs/Day Years Used Date Smoking Tobacco: Former Smokeless Tobacco: Never Alcohol Use Standard Drinks/Week Comments Yes 0 (1 standard drink = 0.6 oz pur e alcohol) Comments Unknown Sex and Gender Information Value Date Recorded Sex Assigned at Not on file Legal Sex Female 4:33 AM STEM SIZER Gender Identity Not on file Sexual Orientation Not on file documented as of this encounter Plan of Treatment Not on file documented as of this encounter Procedures Procedure Name Priority Date/Time Associated Diagnosis Comments CHOLESTEROL, LDL, DIRECT Routine 03/20/2017 7:46 AM CDT Mixed hyperlipidemia COMPREHENSIVE METABOLIC PANEL Routine 03/20/2017 7:46 AM CDT Mixed hyperlipidemia documented in this encounter Results * (ABNORMAL) Cholesterol, LDL, direct (03/20/2017 7:46 AM CDT) LDL, direct 111(H) <100 mg/dL [facility] [place] Comment: Greatly elevated Triglycerides values (>1200 mg/dL) interfere with the dLDL assay. As no Triglycerides testing was ordered, interpret results with caution. Desirable range <100 mg/dL for patients with CHD or diabetes and <70 mg/dL for diabetic patients with known heart disease. Blood specimen (specimen) 03/20/2017 7:46 AM CDT 03/20/2017 7:46 AM CDT Narrative [facility] - 03/21/2017 3:24 AM CDT FASTING:YES Resulting Agency Comment Performing Organization Information: ?Site ID: [place] ?Name: [facility] ?[address] [address] [facility] [place] [address] ?Director: Cedric Palm D.O., MPH us Pepper Morgan MD LAB BLOOD ORDERABLES Final Result [facility] [place] * (ABNORMAL) Comprehensive metabolic panel (03/20/2017 7:46 AM CDT) Glucose 90 65 - 99 mg/dL [facility] [place] Comment: ? Fasting reference interval BUN 19 7 - 25 mg/dL [facility] [place] Creatinine 0.72 0.60 - 0.93 mg/dL [facility] [place] Comment: For patients >49 years of age, the reference limit for Creatinine is approximately 13% higher for people identified as -[place]. eGFR NON-AFR. CITIZEN OF [place] 80 > OR = 60 mL/min/1 .73m2 [facility] [place] EGFR 92 > OR = 60 mL/min/1 .73m2 [facility] [place] BUN/creat ratio NOT APPLICABLE 6 - 22 (calc) [facility] [place] Sodium 140 135 - 146 mmol/L [facility] [place] Potassium, pl 4.3 3.5 - 5.3 mmol/L [facility] [place] Chloride 103 98 - 110 mmol/L [facility] [place] CO2 29 20 - 31 mmol/L [facility] [place] Calcium 9.4 8.6 - 10.4 mg/dL [facility] [place] Protein, sr 6.4 6.1 - 8.1 g/dL [facility] [place] Albumin 3.8 3.6 - 5.1 g/dL [facility] [place] Globulin 2.6 1.9 - 3.7 g/dL (calc) [facility] [place] Alb/glob ratio 1.5 1.0 - 2.5 (calc) [facility] [place] Bilirubin, total 0.5 0.2 - 1.2 mg/dL [facility] [place] Alk phos 103 33 - 130 U/L [facility] [place] AST 9(L) 10 - 35 U/L [facility] [place] ALT (SGPT) 7 6 - 29 U/L [facility] [place] Blood specimen (specimen) 03/20/2017 7:46 AM CDT 03/20/2017 7:46 AM CDT Narrative [facility] - 03/21/2017 3:24 AM CDT FASTING:YES Resulting Agency Comment Performing Organization Information: ?Site ID: [place] ?Name: [facility] ?Address: [address] [place] [address] ?Director: Cedric Palm D.O., MPH Pepper Morgan MD LAB BLOOD ORDERABLES Final Result [facility] [place] documented in this encounter Visit Diagnoses Diagnosis Mixed hyperlipidemia- Primary documented in this encounter Additional Health Concerns Infection Onset Date Last Indicated Resolved Time COVID: Suspected 06/01/2020 06/01/2020 06/15/2020 3:07 AM STEM SIZER COVID: Suspected 04/21/2021 04/21/2021 04/21/2021 4:25 PM CDT COVID: Suspected 10/14/2021 10/14/2021 10/14/2021 1:53 PM CDT COVID: Suspected 02/16/2023 02/16/2023 02/16/2023 8:33 AM CDT COVID: Suspected 06/14/2023 06/14/2023 06/14/2023 6:44 PM STEM SIZER COVID: Suspected 06/24/2023 06/24/2023 06/24/2023 12:46 PM STEM SIZER documented as of this encounter Care Teams Housekeeper Supervisor Relationship Specialty Start Date End Date Pepper Morgan MD PCP - General 09/16/16 Melissa Hoyt, RN [address] [place] [address] Serology Technician 02/21/17 02/21/17 Hank Garibay MD [address] [facility] [address] [place] [address] Surgeon Orthopedic Surgery 03/27/17 Jacky Murry MD [address] [facility] [address] [place] [address] Ophthalmology 03/27/17 Puma Mckenzie MD [address] [facility] [address] [place] [address] Surgeon Orthopedic Surgery 07/11/19 Neha Jackson, PT Physical Therapist Physical Therapy 6/15/22 Stalin Arauz MD [address] [facility] [address] [place] [address] Consulting Physician Cardiology 12/08/22 Tiffany Rojas PA [address] [facility] [address] [place] [address] Gastroenterology 12/30/22 Klaus Deshpande MD [address] [facility] [address] [place] [address] Consulting Physician Neurology 06/13/23 Andrea Waddell, RN [address] [place] [address] [address] [place] [address] Serology Technician 01/11/24 01/14/24 documented as of this encounter
--- OUTSIDE RECORDS SUMMARY | 2024-06-18 19:05 | XMS_ITS | Encounter Summary ---
Author Organization [facility] Healthcare Address [address] [place] [address] Care Team Providers Care Battery Parts Assembler Name Role Phone Pepper Morgan MD Primary Care Provider [phone] Encounter Details Date Type Department Care Team (Latest Contact Info) Description 04/25/2014 10:24 AM PROVIDER RELATIONS COORDINATOR - 05/01/2014 5:05 PM PROVIDER RELATIONS COORDINATOR Hospital Encounter [facility] Kendra Lugo Other specified rehabilitation procedure; Acute posthemorrhagic anemia; Abnormality of gait; Essential hypertension; Knee joint replaced by other means; Edema; Other musculoskeletal symptoms referable to limbs Social History Tobacco Use Types Packs/Day Years Used Date Smoking Tobacco: Former Alcohol Use Standard Drinks/Week Comments Yes 0 (1 standard drink = 0.6 oz pur e alcohol) Comments Unknown Sex and Gender Information Value Date Recorded Sex Assigned at Not on file Legal Sex Female 4:33 AM PROVIDER RELATIONS COORDINATOR Gender Identity Not on file Sexual Orientation Not on file documented as of this encounter Last Filed Vital Signs Vital Sign Reading Time Taken Comments Blood Pressure 135/74 05/01/2014 3:22 PM PROVIDER RELATIONS COORDINATOR Pulse 68 05/01/2014 3:22 PM PROVIDER RELATIONS COORDINATOR Temperature - - Respiratory Rate - - Oxygen Saturation - - Inhaled Oxygen Concentration - - Weight 93.4 kg (205 lb 14.6 oz) 04/28/2014 3:50 PM PROVIDER RELATIONS COORDINATOR Height 154.9 cm (5' 0.98 ) 04/28/2014 3:50 PM CS T Body Mass Index 38.93 04/28/2014 3:50 PM PROVIDER RELATIONS COORDINATOR documented in this encounter Discharge Summaries * Provider, MD Latasha - 05/01/2014 12:00 AM CST DISCHARGE SUMMARY - [facility] Patient: TESS BENEDICT I. Account: [id number] Room No: 115-01 : 1935 Patient Type: IP Attend.: Kendra Lugo M.D. Admit Date: 04/25/2014 Dict.: Jeb Casillas D.O. Disch. Date: 05/01/2014 ATTENDING Kyrie Christine D.O. CONSULTANTS Franki Card M.D. PROCEDURES None. REASON FOR ADMISSION/HISTORY OF PRESENT ILLNESS Ms. Benedict is a very pleasant 78-year-old female who is admitted to the [facility] for more physical therapy, occupational therapy postoperatively. The patient had a total knee replacement done on 04/22/[address] Franki Card and was recommended to have treatment in the [facility]. She was discharged on 04/24/2014 from the inpatient surgical floor to transitional care. HOSPITAL COURSE 1. Status post total right knee replacement. The patient was continued on physical therapy, occupational therapy as well as deep venous thrombosis prophylaxis with aspirin and continued to do well working with therapy on a daily basis. By 05/01/2013 it was determined the patient could be discharged home safely with physical therapy and half-way to see the patient at home as well as follow-up with Dr. Franki Card on the following Monday. 2. Hypertension. Blood pressure remained well controlled on home blood pressure medication and had no acute issues. 3. Anemia. The patient did show signs of anemia with hemoglobins ranging in the 9 to 10 area. This stayed consistent level and remained stable. Discharge disposition was good. Discharge instructions: Okay to discharge home. Discharge follow-up: To follow-up with Dr. Franki Card on Monday. Discharge medications: Please see medication reconciliation list. The patient will also be sent home on OxyContin 10 1 b.i.d. as well as Percocet 5/325 1 tab p.o. q 4-6 hours p.r.n. Greater than one-half hour was spent preparing this discharge summary. Ian Eubanks TD: 05/02/2014 04:30 CC: Pepper Morgan M.D. Authenticated by Jeb Casillas MD On 05/03/2014 07:58:58 AM documented in this encounter Medications at [...] H&P Notes * Provider, MD Latasha - 04/25/2014 12:00 AM CST HISTORY AND PHYSICAL Patient: TESS BENEDICT I. Account: [id number] Room No: 115-01 : 1935 Patient Type: IP Attend.: Kendra Lugo M.D. Admit Date: 04/25/2014 Dict.: Fatimah Molina M.D. Disch. Date: CHIEF COMPLAINT: This is a very pleasant 78-year-old female who was admitted to the [facility] for more physical therapy/occupational therapy postoperatively. HISTORY OF PRESENT ILLNESS: The patient had a total knee replacement done on 04/22/[address] Card, and was recommended to have treatment in the [facility]. She was discharged yesterday from the surgical floor to transitional care. REVIEW OF SYSTEMS: Denies fever, chills, or diaphoresis. Denies focal neurological weakness or paresthesias. Denies shortness of breath or cough. No chest pain or palpitations. Denies nausea, vomiting, diarrhea, or constipation. Musculoskeletal: Has moderate pain in her right knee and right lower extremity, also mild to moderate edema and some erythema around the right knee posterior fossa area but no neurological focal weakness. Denies any endocrine changes. No other skin changes. PAST MEDICAL HISTORY: 1. Osteoarthritis. 2. Hypertension. 3. GERD. 4. Chronic back pain. 5. History of melanoma. 6. Recent right total knee arthroplasty due to severe osteoarthritic changes in pain. PAST SURGICAL HISTORY: Melanoma removal in 1975, gastroplasty in 1984, cholecystectomy in 1994, arthroscopic knee surgery in 2003, and right total knee arthroplasty on 04/22/2014. SOCIAL HISTORY: She lives by herself. Denies any tobacco or alcohol use. 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 FAMILY HISTORY: Not significant and noncontributory. ALLERGIES: LISINOPRIL and SULFA. HOME MEDICATIONS: 1. Aleve two tablets b.i.d. 2. Felodipine 2.5 mg q.12h. 3. Omeprazole 20 mg daily. 4. Pramipexole 0.125 mg with dinner. 5. Propranolol 20 mg t.i.d. PHYSICAL EXAMINATION: Vital signs: Blood pressure 146/69, pulse 60, respirations 18, temperature 36.3, oxygen saturation 96% on room air. HEENT: The patient is pale-looking. No significant pallor, icterus, or petechiae. Mucous membranes are moist. Neck: Supple. No JVD or thyromegaly. Chest: S1, S2 regular. No murmurs or gallops. Lungs: Clear to auscultation bilaterally. Abdomen: Soft, nontender. Bowel sounds positive. Extremities: Right lower extremity with 1+ nonpitting edema, mild erythema in surrounding tissue of the knee on the posterolateral aspect of the knee, and surgical dressing mildly saturated at the end with blood. The surgical dressing has not been changed since surgery and is supposed to be changed by Dr. Card. The patient is complaining of mild to moderate pain in the right leg. ASSESSMENT AND PLAN: 1. Status post right total knee. The patient will continue physical therapy/occupational therapy and also DVT prophylaxis which is prescribed by Dr. Card as aspirin 325 mg b.i.d. dose. 2. Hypertension. Her blood pressure seems to be controlled. We will continue her home medications. No changes. 3. The patient has acute blood loss anemia which is due to orthopedic surgery, but it is mild and stable. We will follow her hemoglobin and hematocrit every week. 4. DVT prophylaxis. Prescribed with aspirin full-dose b.i.d. The patient is admitted as an inpatient. ADMISSION DIAGNOSIS: 1. Status post right total knee arthroplasty. 2. Acute blood loss anemia due to surgery, mild and stable. 3. Hypertension, stable. 4. Right lower extremity edema due to surgery. Estimated length of stay to exceed two midnights. Fatimah Molina M.D. NS/ms TD: 04/26/2014 17:11 Authenticated by Fatimah Molina MD On 04/27/2014 07:57:40 AM documented in this encounter Plan of Treatment Not on file documented as of this encounter Procedures Procedure Name Priority Date/Time Associated Diagnosis Comments DISCHARGE LABORATORY CUMULATIVE REPORT Routine 05/01/2014 12:00 AM PROVIDER RELATIONS COORDINATOR US ARTERIAL DOPPLER LOWER EXTREMITY COMPLETE Routine 04/29/2014 11:19 AM PROVIDER RELATIONS COORDINATOR SERUM RENAL PANEL Routine 04/29/2014 3:4 8 AM PROVIDER RELATIONS COORDINATOR BLOOD WBC CELL MORPHOLOGIC EXAM, AUTO Routine 04/29/2014 3:48 AM PROVIDER RELATIONS COORDINATOR BLOOD CELL COUNT (CBC) Routine 04/29/2014 3:48 AM PROVIDER RELATIONS COORDINATOR documented in this encounter Results * Discharge Laboratory Cumulative Report (05/01/2014 12:00 AM PROVIDER RELATIONS COORDINATOR) 05/01/2014 Narrative HISTORICAL RESULTS - 05/02/2014 1:15 AM PROVIDER RELATIONS COORDINATOR Patient No: [id number] ? [facility] Patient Name: TESS BENEDICT I ? [facility] Healthcare Age: 78 YRS ?: 1935 ?Sex:F ?[address] )[phone] ?? Adm Dt: 04/25/2014 ?[place], [place] ??[address] Created: 05/02/2014 ??0115 ?? Pt. Type: N ? Discharge Dt: 05/01/2014 ? Pathologists: Jenny Aguirre MD Admit Dr. Olga Guadarrama: KENDRA LUGO MD ? BLOOD CELL COUNTS ?Collection Date: ?04/29/14 ?Collection Time: ?0348 ? Ref Range: ?? Units: [4.00-10.50] /CMM ? WBC X 10^3 ?8.13 [4.20-5.40] ??/CMM ? RBC X 10^6 ?3.56 L [12.0-16.0] ??G/DL ? HGB ?9.9 L [37.0-47.0] ??% ?HCT ? 31.1 L [77.0-97.0] ??FL ? MCV ? 87.4 [23.0-34.0] ??PG ? MCH ? 27.8 [32.0-36.0] ??% ?MCHC ?31.8 L [11.5-14.5] ??% ?RDW ? 13.8 [150-400] ?? /CMM ? PLT X 10^3 ? 397 ?BLOOD CELL DIFFERENTIAL ?Collection Date: ?04/29/14 ?Collection Time: ?0348 ? Ref Range: ?? Units: [54.0-69.0] ??% ?NEUTROPHILS ? 61.8 [25.0-33.0] ??% ?LYMPHOCYTES ? 17.1 L [0.0-13.0] ??% ?MONOCYTES ? 10.3 [0.0-10.0] ??% ?EOSINOPHILS ?8.6 [0.0-1.0] ?? % ?BASOPHILS ?0.4 ? /CMM ? A LYMPHOCYTE ? 1.4 [0.0-1.0] ?? % ?IMM GRAN % ? 1.8 H [0.00-0.02] ??/CMM ? A IMM GRAN ?0.15 H [1.1-1.9] ?? /CMM ? A MONOCYTE ? 0.8 L [1.4-6.5] ?? /CMM ? A NEUTROPHIL ? 5.0 [0.0-0.7] ?? /CMM ? A EOSINOPHIL ? 0.7 [0.0-0.2] ?? /CMM ? A BASOPHIL ? 0.0 Footnotes and Symbols: L = Low, H = High ?? CONTINUED ?Page: ?? 1 Patient No: [id number] ? [facility] Patient Name: TESS BENEDICT I ? [facility] Age: 78 YRS ?: 1935 ?Sex:F ?[address] )[phone] ?? Adm Dt: 04/25/2014 ?[place] ??[address] Created: 05/02/2014 ??0115 ?? Pt. Type: N ? Discharge Dt: 05/01/2014 ? Pathologists: Jenny Aguirre MD Admit Attend Dr: KENDRA LUGO MD ? GENERAL CHEMISTRY ?Collection Date: ?04/29/14 ?Collection Time: ?0348 ? Ref Range: ?? Units: [134-143] ?? MMOL/L ? SODIUM ? 134 [3.4-5.0] ?? MMOL/L ? POTASSIUM ?4.6 f ?04/29/14 0348 HEMOLYSIS PRESENT POTASSIUM MAY BE AFFECTED FOOTNOTE ADDED ON ?? 04/29/14 ?? AT 0439 BY 999 [99.0-108.0] MMOL/L ? CHLORIDE ?98.0 L [23.0-32.0] ??MMOL/L ? TOTAL CO2 ? 30.4 ?? [7-14] ?MMOL/L ? ANION GAP ? 10 ??[70-199] ?? MG/DL ?GLUCOSE ? 99 f [280-301] ?? MOSM/K ? CALCULATED OSMO ?267 L [3.3-4.5] ?? G/DL ? ALBUMIN ?2.0 L [8.6-9.8] ?? MG/DL ?CALCIUM ?8.8 [2.5-4.9] ?? MG/DL ?PHOSPHORUS ? 3.9 f ?04/29/14 0348 HEMOLYSIS PRESENT PHOSPHOROUS MAY BE FALSELY ELEVATED FOOTNOTE ADDED ON ?? 04/29/14 ?? AT 0439 BY 999 [6.0-23.0] ??MG/DL ?BUN ?9.0 ??[10-20] ? B/C RATIO ? 17 [0.60-1.30] ??MG/DL ?CREATININE ?0.53 L Footnotes and Symbols: L = Low, f [...] glucose. New reference ranges implemented 04/29/2013. ?? END OF CHART ? Page: ?? 2 us Historical Provider LAB BLOOD ORDERABLES Farzana hernandez Result HISTORICAL RESULTS * US Arterial Doppler Lower Extremity Complete (04/29/2014 11:19 AM PROVIDER RELATIONS COORDINATOR) Anatomical Region Laterality Modality Vascular N/A Ultrasound 04/29/2014 11:1 9 AM PROVIDER RELATIONS COORDINATOR Narrative 04/29/2014 10:54 PM PROVIDER RELATIONS COORDINATOR VL/US Venous Low Ext R ??Acc#: ??[id number] DATE OF EXAM: ??Apr 29 2014 CLINICAL HISTORY: Right leg pain. ??Right knee total arthroplasty 04/22/14. ??Evaluate for deep venous thrombosis. RESULT: Color flow Doppler examination and orellana scale examination of the deep venous system of the right lower extremity. ??On color flow Doppler study, flow was seen within the common femoral vein, superficial femoral vein, popliteal vein and visualized portions of the calf veins. ??No filling defects were seen. ??The veins were compressible. ??No deep venous thrombosis identified. ??Flow was seen within the saphenous veins, which were compressible. IMPRESSION: NEGATIVE FOR DEEP VENOUS THROMBOSIS. Interpreting Physician: ??ANDIE FITZGERALD M.D. ??Read on: ??Apr 29 2014 11:53A Transcribed by: ??mrr ??On: Apr 29 2014 12:10P Approved Electronically by: ??ANDIE FITZGERALD M.D. ??on: ??Apr 29 2014 10:54P Ordering DR: FRANKI CARD Attending DR: KENDRA LUGO Procedure Note Provider, Latasha, - 10/06/2016 VL/US Venous Low Ext R Acc#: [id number] DATE OF EXAM: Apr 29 2014 CLINICAL HISTORY: Right leg pain. Right knee total arthroplasty 04/22/14. Evaluate fordeep venous thrombosis. RESULT: Color flow Doppler examination and orellana scale examination of the deepvenous system of the right lower extremity. On color flow Doppler study,flow was seen within the common femoral vein, superficial femoral vein,popliteal vein and visualized portions of the calf veins. No fillingdefects were seen. The veins were compressible. No deep venousthrombosis identified. Flow was seen within the saphenous veins, whichwere compressible. IMPRESSION: NEGATIVE FOR DEEP VENOUS THROMBOSIS. Interpreting Physician: ANDIE FITZGERALD M.D. Read on: Apr 29 2014 11:53A Transcribed by: slade On: Apr 29 2014 12:10P Approved Electronically by: ANDIE FITZGERALD M.D. on: Apr 29 2014 10:54P Ordering DR: FRANKI CARD Attending DR: KENDRA LUGO us Historical Provider IMG US PROCEDURES Final R esult * (ABNORMAL) Blood cell count (CBC) (04/29/2014 3:48 AM PROVIDER RELATIONS COORDINATOR) WBC 8.1 4.0 - 10.5 K/cumm HISTORICAL RESULTS RBC 3.56(L) 4.20 - 5.40 M/cumm HISTORICAL RESULTS Hgb 9.9(L) 12.0 - 16.0 g/dl HISTORICAL RESULTS Hct 31.1(L) 37.0 - 47.0 % HISTORICAL RESULTS MCV 87.4 77.0 - 97.0 fl HISTORICAL RESULTS MCH 27.8 23.0 - 34.0 pg HISTORICAL RESULTS MCHC 31.8(L) 32.0 - 36.0 g/dl HISTORICAL RESULTS Rdw 13.8 11.5 - 14.5 % HISTORICAL RESULTS Platelets 397 150 - 400 K/cumm HISTORICAL RESULTS MPV 9.3 7.4 - 10.4 fl HISTORICAL RESULTS Blood specimen (specimen) 04/29/2014 3:48 AM PROVIDER RELATIONS COORDINATOR Kendra Lugo LAB BLOOD ORDERABLES Final Re sult HISTORICAL RESULTS * (ABNORMAL) Blood WBC cell morphologic exam, auto (04/29/2014 3:48 AM PROVIDER RELATIONS COORDINATOR) Neutrophils 61.8 54.0 - 69.0 % HISTORICAL RESULTS Lymphocytes 17.1(L) 25.0 - 33.0 % HISTORICAL RESULTS Eosinophils 8.6 0.0 - 10.0 % HISTORICAL RESULTS Monos 10.3 0.0 - 13.0 % HISTORICAL RESULTS Basophils 0.4 0.0 - 1.0 % HISTORICAL RESULTS Immature granulocytes 1.8(H) 0.0 - 1.0 % HISTORICAL RESULTS Lymphocytes, abs 1.4 1.2 - 3.4 K/cumm HISTORICAL RESULTS Monocytes, absolute 0.8(L) 1.1 - 1.9 K/cumm HISTORICAL RESULTS Neutrophils, abs 5.0 1.4 - 6.5 K/cumm HISTORICAL RESULTS Eosinophils, abs 0.7 0.0 - 0.7 cells/cum m HISTORICAL RESULTS Basophils, abs 0.0 0.0 - 0.2 K/cumm HISTORICAL RESULTS Immature granulocyte, abs 0.2(H) 0.0 - 0.0 K/cumm HISTORICAL RESULTS Blood specimen (specimen) 04/29/2014 3:48 AM PROVIDER RELATIONS COORDINATOR us Kendra Lugo LAB BLOOD ORDERABLES Final Re sult HISTORICAL RESULTS * (ABNORMAL) Serum renal panel (04/29/2014 3:48 AM PROVIDER RELATIONS COORDINATOR) BUN 9.0 6.0 - 23.0 mg/dl HISTORICAL RESULTS Calcium 8.8 8.6 - 9.8 mg/dl HISTORICAL RESULTS Sodium 134 134 - 143 mmol/L HISTORICAL RESULTS Phosphorus, sr 3.9 2.5 - 4.9 mg/dl HISTORICAL RESULTS Comment:HEMOLYSIS PRESENT PH OSPHOROUS MAY BE FALSELY ELEVATED Potassium, sr 4.6 3.4 - 5.0 mmol/L HISTORICAL RESULTS Comment:HEMOLYSIS PRESENT PO TASSIUM MAY BE AFFECTED Chloride 98(L) 99 - 108 mmol/L HISTORICAL RESULTS CO2 30 23 - 32 mmol/L HISTORICAL RESULTS Glucose 99 70 - 199 mg/dl HISTORICAL RESULTS Comment: [...] glucose. New reference ranges implemented 04/29/2013. Creatinine 0.53(L) 0.60 - 1.30 mg/dl HISTORICAL RESULTS BUN/creat ratio 17 10 - 20 HIST ORICAL RESULTS A. gap 10 7 - 14 mmol/L HISTORICAL RESULTS Osmo, calc 267(L) 280 - 301 mOsm/kg HISTORICAL RESULTS Alb 2.0(L) 3.3 - 4.5 g/dl HISTORICAL RESULTS Serum 04/29/2014 3:48 AM PROVIDER RELATIONS COORDINATOR us Kendra Hawley Narravula LAB BLOOD ORDERABLES Final Re sult HISTORICAL RESULTS documented in this encounter Visit Diagnoses Diagnosis Other specified rehabilitation procedure Acute posthemorrhagic anemia Abnormality of gait Essential hypertension Unspecified essential hypertension Knee joint replaced by other means Edema Other musculoskeletal symptoms referable to limbs documented in this encounter Care Teams Battery Parts Assembler Relationship Specialty Start Date End Date Pepper Morgan MD PCP - General 01/13/14 05/11/14 documented as of this encounter
--- OUTSIDE RECORDS SUMMARY | 2024-06-18 19:05 | XMS_ITS | Encounter Summary ---
Author Organization [facility] Facility Care Team Providers Care Interior Surface Insulation Worker Name Role Phone Unavailable Primary Care Provider Unavailabl e Encounter Details Date Type Department Care Team (Late st Contact Info) Description 05/06/2009 7:57 AM SPIKEMAKING SUPERVISOR - 05/06/2009 4:00 PM SPIKEMAKING SUPERVISOR Hospital Encounter [facility] Cleveland Brooks MD [address] [address] Other specified pre-operative examination; Cataract; Esophageal reflux; Essential hypertension Social History Tobacco Use Types Packs/Day Years Used Date Smoking Tobacco: Never Assessed Comments Unknown Sex and Gender Information Value Date Recorded Sex Assigned at Not on file Legal Sex Female 4:33 AM SPIKEMAKING SUPERVISOR Gender Identity Not on file Sexual Orientation Not on file documented as of this encounter Plan of Treatment Not on file documented as of this encounter Visit Diagnoses Diagnosis Other specified pre-operative examination Cataract Unspecified cataract Esophageal reflux Essential hypertension Unspecified essential hypertension documented in this encounter
--- OUTSIDE RECORDS SUMMARY | 2024-06-18 19:05 | XMS_ITS | Encounter Summary ---
Author Organization [facility] Address [address] [facility] [address] [place] [address] Care Team Providers Care Inventory Specialist Manager Name Role Phone Pepper Morgan MD Primary Care Provider [phone]- [phone] Encounter Details Date Type Department Care Team (Latest Contact Info) Description 01/17/2017 7:40 AM CDT - 01/17/2017 11:59 PM CDT Hospital Encounter [facility] Orthopedics and Sports Medicine [address] [facility] [address], [place] [address] Discharge Disposition: Discharge to home or self care Social History Tobacco Use Types Packs/Day Years Used Date Smoking Tobacco: Former Smokeless Tobacco: Never Alcohol Use Standard Drinks/Week Comments Yes 0 (1 standard drink = 0.6 oz pur e alcohol) Comments Unknown Sex and Gender Information Value Date Recorded Sex Assigned at Not on file Legal Sex Female 4:33 AM TRAFFIC CONTROL SUPERVISOR Gender Identity Not on file [...] Date/Time Associated Diagnosis Comments XR KNEE LEFT 4 OR MORE VIEWS Schedule Routine, Read Routine (OP Routine) 01/17/2017 11:37 AM CDT Primary osteoarthritis of left knee documented in this encounter Results * XR Knee Left 4+ View (01/17/2017 [...] with implants appearing in acceptable position. ?? Susan BRUCE IMG XR PROCEDURES Final Result documented in this encounter Visit Diagnoses Not on filedocumented in this encounter Care Teams Inventory Specialist Manager Relationship Specialty Start Date End Date Pepper Morgan MD PCP - General 09/16/16 documented as of this encounter
--- OUTSIDE RECORDS SUMMARY | 2024-06-18 19:05 | XMS_ITS | Encounter Summary ---
Author Organization [facility] Healthcare Address [address] [place] [address] Care Team Providers Care Blocker And Polisher Name Role Phone Pepper Morgan MD Primary Care Provider [phone]- [phone] Encounter Details Date Type Department Care Team (Late st Contact Info) Description 05/05/2014 9:59 AM SIMULATION ANALYST - 05/05/2014 11:59 PM SIMULATION ANALYST Hospital Encounter [facility] Hank Benitez MD [address] [place] [address] [address] [address] Swelling of limb; Pain in soft tissues of limb; Knee joint replaced by other means Social History Tobacco Use Types Packs/Day Years Used Date Smoking Tobacco: Former Alcohol Use Standard Drinks/Week Comments Yes 0 (1 standard drink = 0.6 oz pur e alcohol) Comments Unknown Sex and Gender Information Value Date Recorded Sex Assigned at Not on file Legal Sex Female 4:33 AM SIMULATION ANALYST Gender Identity Not on file Sexual [...] Name Priority Date/Time Associated Diagnosis Comments US ARTERIAL DOPPLER LOWER EXTREMITY COMPLETE Routine 05/05/2014 10:44 AM SIMULATION ANALYST documented in this encounter Results * US Arterial Doppler Lower Extremity Complete (05/05/2014 10:44 AM SIMULATION ANALYST) Anatomical Region Laterality Modality Vascular N/A Ultrasound 05/05/2014 10:4 4 AM SIMULATION ANALYST Narrative 05/05/2014 9:59 PM SIMULATION ANALYST jlm VL/US Venous Low Ext R ??Acc#: ??[id number] DATE OF EXAM: ??May 05 2014 CLINICAL HISTORY: Prior right knee replacement. ??Swelling and tenderness. ??Assess for thrombophlebitis. ??Tenderness on palpation. RESULT: Standard images and color flow Doppler images were obtained. ??There is good flow in the principal deep venous channels and greater saphenous vein with no thrombophlebitis seen. IMPRESSION: NEGATIVE RIGHT LOWER EXTREMITY VENOUS DOPPLER WITH NO THROMBOPHLEBITIS IDENTIFIED. Interpreting Physician: ??IGOR MORRIS M.D. ??Read on: ??May 05 2014 1:25P Transcribed by: ??francine ??On: May 05 2014 ??1:25P Approved Electronically by: ??IGOR MORRIS M.D. ??on: ??May 05 2014 9:59P Ordering DR: HANK CARD Attending DR: HANK CARD Procedure Note Provider, MD Latasha - 10/06/2016 jlm VL/US Venous Low Ext R Acc#: [id number] DATE OF EXAM: May 05 2014 CLINICAL HISTORY: Prior right knee replacement. Swelling and tenderness. Assess forthrombophlebitis. Tenderness on palpation. RESULT: Standard images and color flow Doppler images were obtained. There isgood flow in the principal deep venous channels and greater saphenous veinwith no thrombophlebitis seen. IMPRESSION: NEGATIVE RIGHT LOWER EXTREMITY VENOUS DOPPLER WITH NO THROMBOPHLEBITISIDENTIFIED. Interpreting Physician: IGOR MORRIS M.D. Read on: May 05 20141:25P Transcribed by: francine On: May 05 2014 1:25P Approved Electronically by: IGOR MORRIS M.D. on: May 05 20149:59P Ordering DR: HANK CARD Attending DR: HANK CARD us Historical Provider MD BETTS US PROCEDURES Final R esult documented in this encounter Visit Diagnoses Diagnosis Swelling of limb Pain in soft tissues of limb Knee joint replaced by other means documented in this encounter Care Teams Blocker And Polisher Relationship Specialty Start Date End Date Pepper Morgan MD PCP - General 01/13/14 05/11/14 documented as of this encounter
--- OUTSIDE RECORDS SUMMARY | 2024-06-18 19:05 | XMS_ITS | Encounter Summary ---
Author Organization [facility] Healthcare Address [address] [place] [address] Care Team Providers Care Rail Operations Controller Name Role Phone Pepper Morgan MD Primary Care Provider [phone]- [phone] Encounter Details Date Type Department Care Team (Late st Contact Info) Description 05/06/2014 9:53 PM FIBERGLASS ROLLER - 05/06/2014 11:21 PM FIBERGLASS ROLLER Hospital Encounter [facility] Swelling, mass, or lump in head and neck Social History Tobacco Use Types Packs/Day Years Used Date Smoking Tobacco: Former Alcohol Use Standard Drinks/Week Comments Yes 0 (1 standard drink = 0.6 oz pur e alcohol) Comments Unknown Sex and Gender Information Value Date Recorded Sex Assigned at Not on file Legal Sex Female 4:33 AM FIBERGLASS ROLLER Gender Identity Not on file Sexual Orientation [...] as of this encounter Visit Diagnoses Diagnosis Swelling, mass, or lump in head and neck documented in this encounter Care Teams Rail Operations Controller Relationship Specialty Start Date End Date Pepper Morgan MD PCP - General 01/13/14 05/11/14 documented as of this encounter
--- OUTSIDE RECORDS SUMMARY | 2024-06-18 19:05 | XMS_ITS | Encounter Summary ---
Author Organization [facility] Facility Care Team Providers Care Dry Clipper Tender Name Role Phone Unavailable Primary Care Provider Unavailabl e Encounter Details Date Type Department Care Team (Late st Contact Info) Description 05/20/2009 10:44 AM PARALEGAL LEGAL SECRETARY - 05/20/2009 4:00 PM [facility] Hospital Encounter [facility] Cleveland Brooks MD [address] [address] Cataract; Essential hypertension; Personal history of malignant melanoma of skin Social History Tobacco Use Types Packs/Day Years Used Date Smoking Tobacco: Never Assessed Comments Unknown Sex and Gender Information Value Date Recorded Sex Assigned at Not on file Legal Sex Female 4:33 AM PARALEGAL LEGAL SECRETARY Gender Identity Not on file Sexual Orientation Not on file documented as of this encounter Plan of Treatment Not on file documented as of this encounter Visit Diagnoses Diagnosis Cataract Unspecified cataract Essential hypertension Unspecified essential hypertension Personal history of malignant melanoma of skin documented in this encounter
--- OUTSIDE RECORDS SUMMARY | 2024-06-18 19:05 | XMS_ITS | Encounter Summary ---
Author Organization [facility] Facility Care Team Providers Care Automatic Pattern Edger Name Role Phone Pepper Morgan MD Primary Care Provider [phone] Encounter Details Date Type Department Care Team (Late st Contact Info) Description 03/06/2012 12:02 PM CDT - 03/06/2012 4:00 PM T Hospital Encounter [facility] Cleveland Brooks MD [address] [address] Pre-procedural laboratory examination; Cataract; Essential hypertension; Obesity; Esophageal reflux Social History Tobacco Use Types Packs/Day Years Used Date Smoking Tobacco: Never Assessed Comments Unknown Sex and Gender Information Value Date Recorded Sex Assigned at Not on file Legal Sex Female 4:33 AM INDUSTRY SEGMENT SPECIALIST Gender Identity Not on file Sexual Orientation Not on file documented as of this encounter Medications at Time of Discharge pramipexole (MIRAPEX) 0.125 mg tablet TAKE 1-2 TABLETS BY MOUTH EVERY DAY 180 1 05/09/2011 03/27/2017 documented as of this encounter Plan of Treatment Not on file documented as of this encounter Visit Diagnoses Diagnosis Pre-procedural laboratory examination Cataract Unspecified cataract Essential hypertension Unspecified essential hypertension Obesity Obesity, unspecified Esophageal reflux documented in this encounter Care Teams Automatic Pattern Edger Relationship Specialty Start Date End Date Pepper Morgan MD PCP - General 11/02/11 01/12/14 documented as of this encounter
--- OUTSIDE RECORDS SUMMARY | 2024-06-18 19:05 | XMS_ITS | Encounter Summary ---
Author Organization [facility] Healthcare Address [address] [place] [address] Care Team Providers Care Front End Manager Name Role Phone Unavailable Primary Care Provider Unavailabl e Encounter Details Date Type Department Care Team (Late st Contact Info) Description 07/28/2010 10:18 AM AUTOMOBILE PARKER - 07/28/2010 11:14 AM [facility] Hospital Encounter [facility] Jason Cline MD [address] [address] Pepper Morgan MD [address] [place] [address] Sprain of ankle; Sprain and strain of knee and leg; Fall from other slipping, tripping, or stumbling; Unspecified place of occurrence; External cause status; Essential hypertension Social History Tobacco Use Types Packs/Day Years Used Date Smoking Tobacco: Never Assessed Comments Unknown Sex and Gender Information Value Date Recorded Sex Assigned at Not on file Legal Sex Female 4:33 AM AUTOMOBILE PARKER Gender Identity Not on file Sexual Orientation Not on file documented as of this encounter Plan of Treatment Not on file documented as of this encounter Visit Diagnoses Diagnosis Sprain of ankle Unspecified site of ankle sprain and strain Sprain and strain of knee and leg Fall from other slipping, tripping, or stumbling Unspecified place of occurrence External cause status Essential hypertension Unspecified essential hypertension documented in this encounter
== END 2024-06-11 10:52 | disposition home or self-care (01) ==
PROVIDERS: Emergency Provider Nurse Practitioner; PCP Internal Medicine Geriatric Medicine
DX: S81.811A Laceration without foreign body, right lower leg, initial encounter (principal); R06.2 Wheezing; X58.XXXA Exposure to other specified factors, initial encounter; I50.9 Heart failure, unspecified; I48.91 Unspecified atrial fibrillation; Z85.820 Personal history of malignant melanoma of skin; G20.A1 Parkinson's disease without dyskinesia, without mention of fluctuations; K21.9 Gastro-esophageal reflux disease without esophagitis; Z79.01 Long term (current) use of anticoagulants; I11.0 Hypertensive heart disease with heart failure; Z87.891 Personal history of nicotine dependence
CPT/HCPCS: 99213; G0463

== ENCOUNTER 2024-08-24 16:46 | Emergency (ER) | payer MEDICARE, SELFPAY ==
--- OUTSIDE RECORDS SUMMARY | 2024-08-24 16:48 | XMS_ITS | Clinical Summary ---
Author Organization [facility] Address [address] [place] [address] Phone Care Team Providers Care Computer Aided Design Drafter Name Role Phone Tristin Morgan MD Primary Care Provider [phone] Social History Tobacco Use Types Packs/Day Years [...] to [place] [address] MEDICARE [facility]PP[facility] Care Teams Computer Aided Design Drafter Relationship Specialty Start Date End Date Tristin Morgan MD [address] [place] [address] PCP - General Infectious Disease 07/25/19
--- OUTSIDE RECORDS SUMMARY | 2024-08-24 16:48 | XMS_ITS | Clinical Summary ---
Author Organization [facility] Facility Address [address] [place] [address] Care Team Providers Care Leaf Conditioner Name Role Phone Maude Harris CDL A DRIVER-BUILD ENGINEER Primary Care Provider Unavailable Allergies Active Allergy [...] mouth 1 (one) time each day Active Ferrous Fumarate (Ferrocite) 324 (106 Fe) [...] the morning and 100 mg in the evening. Take as directed by mouth . Active pantoprazole (PROTONIX) 20 MG EC tablet [...] mouth 1 (one) time each day Active Magnesium 400 MG tablet Take 500 mg by mouth in the morning and 500 mg in the evening. Active Empagliflozin (Jardiance) 10 MG tablet Take 10 mg by mouth 1 (one) time each day in the morning 08/20/19 25 Discontinu ed(Med List Maintenanc e) Vericiguat 2.5 MG tablet Take 2 mg by mouth 1 (one) time each day 08/20/19 25 Discontinu ed(Therapy completed) Encounters Date Type Department Care Team Description 08/19/2024 11:30 AM PIPE JOINTS SUPERVISOR Office Visit [facility] [address] [place] [address] Tristin Guillen MD Stage 3 chronic kidney disease, not otherwise specified (HCC) (Primary Dx); Hypertension; Chronic systolic congestive heart failure (HCC); Hypertensive chronic kidney disease, unspecified, 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 [address] [place] [address] Tristin Guillen MD from Last 3 Months Family History Medical History Relation Comments COPD Father aortic abdominal an Father No Known Problems Mother No Known Problems Sister Relation Status Comments Father Mother Sister Social History Tobacco Use Types Packs/Day Years [...] on file Sexual Orientation Not on file Last Filed Vital Signs Vital Sign Reading Time Taken Comments Blood Pressure 116/64 08/19/2024 11:33 AM PIPE JOINTS SUPERVISOR Pulse 61 08/19/2024 11:33 AM PIPE JOINTS SUPERVISOR Temperature 36.3 C (97.3 F) 08/19/2024 11:33 AM PIPE JOINTS SUPERVISOR Respiratory Rate - - Oxygen Saturation 95% 08/19/2024 11:33 AM PIPE JOINTS SUPERVISOR Inhaled Oxygen Concentration - - Weight 81.9 kg (180 lb 8 oz) 08/19/2024 11:33 AM PIPE JOINTS SUPERVISOR Height 152.4 cm (5') 08/19/2024 11:33 AM PIPE JOINTS SUPERVISOR Body Mass Index 35.25 08/19/2024 11:33 AM PIPE JOINTS SUPERVISOR Plan of Treatment Upcoming Encounters Date Type Department Care Team (Late st Contact Info) Description 10/04/2024 12:15 PM CDT Office Visit [facility]. [address] [place] [address] Tristin Guillen MD [address] [place] [address] [place] [address] Health Maintenance Due Date Last Done Comments Pneumococcal Vaccine: 65+ Years Completed 04/26/2016, 02/18/2015, 05/17/2002 Influenza Vaccine Completed 03/19/2024, , 03/10/2022, Additional history exists Hepatitis B Vaccine Aged Out No longe r eligible based on patient's age to [place] [address] MEDICARE Care Teams Leaf Conditioner Relationship Specialty Start Date End Date Maude Harris APRN-BUILD ENGINEER [address] [place] [address] PCP - General Incident Coordinator 06/05/24
--- OUTSIDE RECORDS SUMMARY | 2024-08-24 16:48 | XMS_ITS | Encounter Summary ---
Author Organization [facility] Address [address] [place] [address] Care Team Providers Care Softball Coach Name Role Phone Pepper Morgan MD Primary Care Provider + [phone] Hank Garibay MD Unavailable [phone] Jacky Murry MD Unavailable [phone] Puma Mckenzie MD Unavailable [phone] Neha Jackson PT Unavailable Unavailable Stalin Arauz MD Unavailable [phone] Tiffany Rojas Unavailable [phone] Klaus Deshpande MD Unavailable [phone] Andrea Waddell RN Unavailable [phone] Reason for Visit * Reason Onset Date Comments Scheduling Appointments 01/27/2021 confirme d injection Encounter Details Date Type Department Care Team (Late st Contact Info) Description 01/27/2021 Telephone [facility] [address] [place] [address] Chata Benedict RT Scheduling Appointments (confirmed injection) [...] on file Legal Sex Female 4:33 AM COVER MAKER Gender Identity Not on file Sexual [...] COVID: Suspected 06/14/2023 06/14/2023 06/14/2023 6:44 PM COVER MAKER COVID: Suspected 06/24/2023 06/24/2023 06/24/2023 12:46 PM COVER MAKER documented as of this encounter Care Teams Softball Coach Relationship Specialty Start Date End Date Pepper Morgan MD PCP - General 09/16/16 Hank Garibay MD [address] [facility] [address] [place] [address] Surgeon Orthopedic Surgery 03/27/17 Jacky Murry MD [address] [facility] [address] [place] [address] Ophthalmology 03/27/17 Puma Mckenzie MD [address] [facility] [address] [place] [address] Surgeon Orthopedic Surgery 07/11/19 Neha Jackson, PT Physical Therapist Physical Therapy 12/01/21 Stalin Arauz MD Consulting Physician Cardiology 12/08/22 Tiffany Rojas PA [address] [place] [address] [address] [place] [address] Gastroenterology 12/30/22 Klaus Deshpande MD [address] [place] [address] [address] [place] [address] Consulting Physician Neurology 06/13/23 Andrea Waddell, XU [address] [place] [address] [address] [place] [address] Chrome Worker 01/11/24 01/14/24 documented as of this encounter
--- OUTSIDE RECORDS SUMMARY | 2024-08-24 16:48 | XMS_ITS | Encounter Summary ---
Author Organization [facility] Address [address] [place] [address] Phone Care Team Providers Care Principal Software Engineer Name Role Phone Pepper Morgan MD Primary Care Provider [phone] Melissa Hoyt RN Unavailable Hank Garibay MD Unavailable Jacky Murry MD Unavailable [phone] Puma Mckenzie MD Unavailable [phone] Neha Jackson PT Unavailable Unavailable Stalin Arauz MD Unavailable [phone] Tiffany Rojas Unavailable [phone] Klaus Deshpande MD Unavailable [phone] Andrea Waddell RN Unavailable Encounter Details Date Type Department Care Team (Late st Contact Info) Description 01/17/2017 Orders Only [facility] [address] [place] [address] Pepper Morgan MD [address] [place] [address] Mixed hyperlipidemia (Primary Dx) Social History Tobacco Use Types Packs/Day Years Used Date Smoking Tobacco: Former Smokeless Tobacco: Never Alcohol Use Standard Drinks/Week Comments Yes 0 (1 standard drink = 0.6 oz pur e alcohol) Comments Unknown Sex and Gender Information Value Date Recorded Sex Assigned at Not on file Legal Sex Female 4:33 AM PROTECTION CONSULTANT Gender Identity Not on file Sexual [...] AM CDT) LDL, direct 111(H) <100 mg/dL [employer] - [place] Comment: Greatly elevated Triglycerides values (>1200 mg/dL) interfere with the dLDL assay. As no Triglycerides testing was ordered, interpret results with caution. Desirable range <100 mg/dL for patients with CHD or diabetes and <70 mg/dL for diabetic patients with known heart disease. Blood specimen (specimen) 03/20/2017 7:46 AM CDT 03/20/2017 7:46 AM CDT Narrative [facility] - 03/21/2017 3:24 AM CDT FASTING:YES Resulting Agency Comment Performing Organization Information: Site ID: [id number] Name: [email or web address] Address: [address] [facility] [place] [address] Director: Cedric Palm D.O., MPH us Pepper Morgan MD LAB BLOOD ORDERABLES Final Result [facility] [employer] [place] arm[place] * (ABNORMAL) Comprehensive metabolic panel (03/20/2017 7:46 AM CDT) Glucose 90 65 - 99 mg/dL [employer] [facility] Comment: Fasting reference interval BUN 19 7 - 25 mg/dL [facility] [place] Creatinine 0.72 0.60 - 0.93 mg/dL [facility] [place] Comment: For patients >49 years of age, the reference limit for Creatinine is approximately 13% higher for people identified as -Hungarian. eGFR NON-AFR. [place] 80 > OR = 60 mL/min/1 .73m2 [facility] [place] EGFR 92 > OR = 60 mL/min/1 .73m2 [facility] [place] BUN/creat ratio NOT APPLICABLE 6 - 22 (calc) [facility] [place] Sodium 140 135 - 146 mmol/L [facility] [place] Potassium, pl 4.3 3.5 - 5.3 mmol/L [facility] [place] Chloride 103 98 - 110 mmol/L [facility] [place] CO2 29 20 - 31 mmol/L [facility] [place] Calcium 9.4 8.6 - 10.4 mg/dL [facility] [place] Protein, sr 6.4 6.1 - 8.1 g/dL [facility] [place] Albumin 3.8 3.6 - 5.1 g/dL [facility] [place] Globulin 2.6 1.9 - 3.7 g/dL (calc) [facility] [place] Alb/glob ratio 1.5 1.0 - 2.5 (calc) [facility] [place] Bilirubin, total 0.5 0.2 - 1.2 mg/dL [facility] [place] Alk phos 103 33 - 130 U/L [facility] [place] AST 9(L) 10 - 35 U/L [facility] [place] ALT (SGPT) 7 6 - 29 U/L [facility] [place] Blood specimen (specimen) 03/20/2017 7:46 AM CDT 03/20/2017 7:46 AM CDT Narrative [facility] - 03/21/2017 3:24 AM CDT FASTING:YES Resulting Agency Comment Performing Organization Information: Site ID: [id number] Name: [email or web address] Address: [address] [place] [address] Director: Cedric Palm D.O., MPH us Pepper Morgan MD LAB BLOOD ORDERABLES Final Result [facility] [place] documented in this encounter Visit Diagnoses Diagnosis Mixed hyperlipidemia- Primary documented in this encounter Additional Health Concerns Infection Onset Date Last Indicated Resolved Time COVID: Suspected 06/01/2020 06/01/2020 06/15/2020 3:07 AM PROTECTION CONSULTANT COVID: Suspected 04/21/2021 04/21/2021 04/21/2021 4:25 PM CDT COVID: Suspected 10/14/2021 10/14/2021 10/14/2021 1:53 PM CDT COVID: Suspected 02/16/2023 02/16/2023 02/16/2023 8:33 AM CDT COVID: Suspected 06/14/2023 06/14/2023 06/14/2023 6:44 PM PROTECTION CONSULTANT COVID: Suspected 06/24/2023 06/24/2023 06/24/2023 12:46 PM PROTECTION CONSULTANT documented as of this encounter Care Teams Principal Software Engineer Relationship Specialty Start Date End Date Pepper Morgan MD PCP - General 09/16/16 Melissa Hoyt, RN [address] [place] [address] Analytical Consultant 02/21/17 02/21/17 Hank Garibay MD [address] [place] [address] [address] [address] [address] Surgeon Orthopedic Surgery 03/27/17 Jacky Murry MD [address] [place] [address] [address] [facility] [address] [place] [address] Ophthalmology 03/27/17 Puma Mckenzie MD [address] [place] [address] [address] [address] Surgeon Orthopedic Surgery 07/11/19 Neha Jackson, PT Physical Therapist Physical Therapy 12/01/21 Stalin Arauz MD Consulting Physician Cardiology 12/08/22 Tiffany Rojas PA [address] [facility] [address] [place] [address] Gastroenterology 12/30/22 Klaus Deshpande MD [address] [facility] [address] [place] [address] Consulting Physician Neurology 06/13/23 Andrea Waddell, XU [address] [place] [address] [address] [place] [address] Analytical Consultant 01/11/24 01/14/24 documented as of this encounter
--- OUTSIDE RECORDS SUMMARY | 2024-08-24 16:48 | XMS_ITS | Continuity of Care Document ---
Author Organization [facility] Address [address] [place] [address] Phone Care Team Providers Care Technical Services Rep Name Role Phone Kevonhawa RESENDEZ, Tamie Unavailable [...] Diagnoses Date Provider Providers Copied on Encounter [facility], [address], [place], [place], [address], [place] tel:[phone] SEC Antoine DIXON Professional Complete Exam (chief complaint) Presence of intraocular lensVitreous degeneration, left eyeDrusen (degenerative ) of macula, bilateralEpir etinal membrane (ERM) of right eyeKeratoconj unctivitis sicca, not specified as Sjogren's, bilateral 4 Kevon OD Tamie. [address] [address], [address], [place], [place], [address], [place]. tel:[phone] Referring Provider: Tamie Porter, Former[facility] named [facility] [address], [place], [address] . tel:[phone] [facility], [address] [place], [place] [address] [address], [place], [place], [address], [place] tel:[phone] SEC [place] Professional YAG PO (chief complaint) Post op visit 4 Ryann OD Concetta. [address] [place], [place] [address], [address], [place], [place], [address], [place]. tel:[phone] Referring Provider: Tamie Porter, [address] [place], [place] [address] [address], [place], [address] . tel:[phone] [place] [facility] [address] [place], [place] [address] [address], [place], [place], [address], [place] tel:[phone] SEC [place] Professional YAG capsulotomy evaluation (chief complaint) Other secondary cataract, left eye Sep-3 4 Lihue Enrico. [address] [place], [place] [address], [address], [place], [place], [address], [place]. tel:[phone] Referring Provider: Tamie Porter, [address] [place] [address] [address], [place], [address] . tel:[phone] [place] [facility] [address] [place], [place] [address] [address], [place], [place], [address], [place] tel:[phone] SEC [place] Professional Follow up visit (chief complaint) Other secondary cataract, left eyeBilateral artificial lens implant Sep- 4 Kevon OD Tamie. [address] [place], [place] [address] [address], [address], [place], [place], [address], [place]. tel:[phone] Referring Provider: Tamie Porter, [address], [place], [address] . tel:[phone] [facility], [address], [place], [place], [address], [place] tel:[phone] SEC [place] Professional Complete Exam (chief complaint) Macular hole of right eyeDry eye syndrome of right lacrimal glandDry eye syndrome of left lacrimal glandVitreous degeneration, left eye Jan- 3 Kevon OD Tamie. [address] [place] [address] [address], [address], [place], [place], [address], [place]. tel:[phone] Referring Provider: Tamie Lund OD [place], [address], [place], [address] . tel:[phone] [facility], [address] [place] [address] [address], [place], [place], [address], [place] tel:[phone] SEC [place] Professional Complete Exam (chief complaint) Vitreous degeneration, left eyePresence of intraocular lensOther secondary cataract, left eyeDrusen (degenerative ) of macula, bilateral Jan- 2 Jeanmarie Rico. [address], [address], [place], [place], [address], [place]. tel:[phone] Referring Provider: Jacky Escobedo, [address], [place], [address] . tel:[phone] Office/outpa tient Visit, [facility], [address], [place], [place], [address], [place] tel:[phone] SEC [place] Professional hair like image (chief complaint) Vitreous degeneration, left eyePresence of intraocular lensOther secondary cataract, left eye Aug- 2 Jeanmarie Rico. [address], [place], [place], [address], [place]. tel:[phone] Referring Provider: Jacky Escobedo, [address], [place], [address] . tel:[phone] [facility], [address], [place], [place], [address], [place] tel:[phone] SEC [place] Professional Complete Exam (chief complaint) Presence of intraocular lensMacular hole of right eyeOther secondary cataract, left eye 9 Jeanmarie Penason. [address], [place], [place], [address], [place]. tel:[phone] Referring Provider: Jacky Escobedo, [address], [place], [address] . tel:[phone] [facility], [address], [place], [place], [address], [place] tel:[phone] SEC [place] Professional No Information 9 Jeanmarie Rico. [address], [place], [place], [address], [place]. tel:[phone] [facility], [address], [place], [place], [address], [place] tel:[phone] SEC [place] Professional Complete Exam (chief complaint) No Information 7 Jeanmarie Rico. [address], [place], [place], [address], [place]. tel:[phone] Referring Provider: Michael Liz, [address], [place], [address] . tel:[phone] [facility], [address], [place], [place], [address], [place] tel:[phone] SEC [place] Professional Complete Exam (chief complaint) No Information 6 Jazzmine Rodriguez. [address], [place], [place], [address], . tel:[phone] Referring Provider: Michael Liz, [address] [facility] [address], [place], [address] . tel:[phone] [facility], [address], [place], [place], [address], [phone] SEC [place] Professional Blurry vision (chief complaint) No Information 5 Conrado Blackburn. [address] [facility], [address], [place], [address], [place]. tel:[phone] Referring Provider: Michael Liz, [address] [facility] [address], [place], [address] . tel:[phone] [facility], [address], [place], [place], [address], [place] [phone] SEC Antoine DESTINY Professional No Information 5 Jazzmine Rodriguez. [address] [facility], [facility] [place], [address], . tel:[phone] Family History Family Member Type Diagnosis Age At Onset Mother Problem (finding) degenerative disorder o f macula Father Problem (finding) glaucoma Payers Payer name Insurance type Covered green party ID Authoriza tion(s) [place] [id number] [facility] Out Of State [id number] Social History Type Description Quantity Date Captured [...]
--- OUTSIDE RECORDS SUMMARY | 2024-08-24 16:49 | XMS_ITS | Referral Summary ---
Author Organization [facility] Address [address] [place] [address] Care Team Providers Care 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 Name Role Phone Pepper Morgan MD Primary Care Provider + [phone] Hank Garibay MD Unavailable [phone] Jacky Murry MD Unavailable [phone] Puma Mckenzie MD Unavailable [phone] Neha Jackson PT Unavailable Unavailable Stalin Arauz MD Unavailable [phone] Tiffany Rojas PA Unavailable [phone] Klaus Deshpande MD Unavailable [phone] Encounters Date Type Department Care Team Description 08/21/2024 2:45 PM SECURITY BUSINESS ANALYST - 08/21/2024 11:59 PM SECURITY BUSINESS ANALYST Hospital Encounter [facility] [address] [place] [address] Stage 3 chronic kidney disease, unspecified whether stage 3a or 3b CKD (HCC); Essential (primary) hypertension; Chronic systolic (congestive) heart failure (HCC); Hypertensive chronic kidney disease with stage 1 through stage 4 chronic kidney disease, or unspecified chronic kidney disease Discharge Disposition: Discharge to home or self care 08/15/2024 Orders Only [facility] [address] [place] [address] Jadyn Hobson PA 08/15/2024 Orders Only [facility] [address] [place] [address] [address] [place] [address] Jadyn Hobson PA Osteoarthritis of right glenohumeral joint (Primary Dx); Right rotator cuff tear arthropathy; Complete tear of right rotator cuff, unspecified whether traumatic 08/15/2024 1:15 PM SECURITY BUSINESS ANALYST Office Visit [facility] [address] [place] [address] [address] [place] [address] Jadyn Hobson PA Osteoarthritis of right glenohumeral joint (Primary Dx); Right rotator cuff tear arthropathy 08/13/2024 Telephone [facility] [address] [place] [address] Pepper Morgan MD 08/07/2024 Telephone [facility] [address] [facility] [address] [place] [address] Pepper Morgan MD Medication error 08/02/2024 MARIO IP Outreach [facility] Accountable Care Organization [address] [place] [address] Bruna Vidal MA 07/31/2024 7:44 AM SECURITY BUSINESS ANALYST - 08/01/2024 12:24 PM SECURITY BUSINESS ANALYST Hospital Encounter [address] [address] Stalin Arauz MD Paroxysmal atrial fibrillation (HCC) Discharge Disposition: Discharge to home or self care 07/31/2024 9:00 AM SECURITY BUSINESS ANALYST - 07/31/2024 11:59 PM SECURITY BUSINESS ANALYST Hospital Encounter [facility] Cardiac Catheterization Lab [address] [place] [address] Discharge Disposition: Discharge to home or self care 07/31/2024 1:10 PM SECURITY BUSINESS ANALYST - 07/31/2024 2:40 PM SECURITY BUSINESS ANALYST Surgery [facility]iac [facility]atheter[facility] [address] [place] [address] Stalin Arauz MD PERC JUDY CLOSE W/IMPLANT [id number] 07/31/2024 10:52 AM SECURITY BUSINESS ANALYST Anesthesia Event [facility]athe[facility] Lab [id number] [place] [address] Maria Guadalupe Talavera MD Barnhart, Lynlee Jo, NP 07/26/2024 Orders Only [facility] Non-invasive Cardiac Diagnostic Testing [address] [place] [address] Stalin Arauz MD Paroxysmal atrial fibrillation (HCC) (Primary Dx) 07/24/2024 Telephone [facility] [address] [place] [address] Pepper Morgan MD 07/15/2024 10:25 AM SECURITY BUSINESS ANALYST Lab [address] [address] Chronic heart failure with preserved ejection fraction (HCC) 07/15/2024 9:30 AM SECURITY BUSINESS ANALYST Office Visit [facility] [address] [place] [address] Maude Harris NP Chronic atrial fibrillation (HCC) (Primary Dx); Chronic heart failure with preserved ejection fraction (HCC); Benign hypertension; Peripheral arterial disease; Paroxysmal atrial fibrillation (HCC) 06/26/2024 Telephone [facility] [address] [place] [address] Pepper Morgan MD from Last 3 Months Allergies Active Allergy [...] breath 6.7 g 3 06/13/[address] (PROTONIX) 40 mg EC tabletIndicati ons:Chronic GERD Take 1 tablet (40 mg total) by mouth daily 90 tablet 2 01/11/20 24 Active ascorbic acid, vitamin C, 250 mg tablet,chewabl e Take 250 mg by mouth 3 (three) times a week Take with the iron 325 mg to ensure absorption Monday 90 tablet 1 01/12/20 24 Active carbamide peroxide (DEBROX) 6.5 % otic solutionIndica tions:Bilatera l impacted cerumen Administer 5 drops into each ear as needed for ear pain (monday right ear, monday left ear) 30 mL 1 02/08/20 24 2024 Active polyethylene glycol (MIRALAX) 17 gram packetIndicati ons:constipati on Take 1 packet (17 g total) by mouth daily as needed for constipation Active acetaminophen (TYLENOL) 500 mg tablet Take 2 tablets (1,000 mg total) by mouth 2 (two) times a day as needed for pain Active Ferrocite 324 mg (106 mg iron) tablet Take 324 mg by mouth 3 (three) times a day 01/12/20 24 Active vericiguat (Verquvo) 2.5 mg tablet Take 1 tablet (2.5 mg total) by mouth daily 14 tablet 04/16/20 24 Active allopurinoL (ZYLOPRIM) 100 mg tabletIndicati ons:Gouty arthritis of foot TAKE 2 TABLETS BY MOUTH EVERY DAY 180 tablet 1 05/14/20 24 Active pramipexole (MIRAPEX) 0.75 mg tabletIndicati ons:Restless legs syndrome TAKE 1 TABLET (0.75 MG TOTAL) BY MOUTH 2 TIMES A DAY 180 tablet 2 06/18/20 24 Active atorvastatin (LIPITOR) 20 mg tablet Take 1 tablet (20 mg total) by mouth daily 30 tablet 06/26/19 25 2025 Active furosemide (LASIX) 80 mg tablet Take 1 tablet (80 mg total) by mouth 2 (two) times a day 60 tablet 11 06/26/19 25 Active metOLazone (ZAROXOLYN) 5 mg tablet Take 1 tablet (5 mg total) by mouth 2 (two) times a week 15 tablet 06/27/19 25 Active gabapentin (NEURONTIN) 100 mg capsule Take 1 capsule (100 mg total) by mouth 3 (three) times a day 90 capsule 5 06/26/19 25 2024 Active cyanocobalamin (Vitamin B-12) 500 mcg tablet Take 1 tablet (500 mcg total) by mouth daily Active aspirin 81 mg chewable tabletIndicati ons:coronary artery disease Take 1 tablet (81 mg total) by mouth daily 30 tablet 08/02/19 25 2025 Active clopidogreL (PLAVIX) 75 mg tabletIndicati ons:coronary artery disease Take 1 tablet (75 mg total) by mouth daily 30 tablet 08/02/19 25 2025 Active dapagliflozin propanediol (FARXIGA) 10 mg tabletIndicati ons:Heart Failure Take 1 tablet (10 mg total) by mouth daily 90 tablet 3 08/01/19 25 Active spironolactone (ALDACTONE) 25 mg tablet Take 1 tablet (25 mg total) by mouth daily 90 tablet 08/05/19 25 2025 Active propranoloL (INDERAL) 20 mg tabletIndicati ons:Essential tremor Take 1 tablet (20 mg total) by mouth 2 (two) times a day 180 tablet 08/13/19 25 Active fluticasone propion-salmet Ofelia (Wixela Inhub) 100-50 mcg/dose diskus inhaler Inhale 1 puff 2 (two) times a day Rinse mouth with water after use. Do not swallow. 60 each 2 08/13/19 25 Active cyclobenzaprin e (FLEXERIL) 10 mg tablet Take 1 tablet (10 mg total) by mouth nightly as needed for muscle spasms 30 tablet 11/17/19 22 2021 Discontinued spironolactone (ALDACTONE) 25 mg tablet Take 1 tablet (25 mg total) by mouth daily 30 tablet 11 07/26/19 24 2024 Discontinued(R eorder) apixaban (ELIQUIS) 2.5 mg tabletIndicati ons:Atrial fibrillation, chronic (HCC) Take 1 tablet (2.5 mg total) by mouth 2 (two) times a day 60 tablet 03/08/20 24 2024 Discontinued propranoloL (INDERAL) 20 mg tablet Take 1 tablet (20 mg total) by mouth 2 (two) times a day with breakfast and lunch 2024 Discontinued empagliflozin (JARDIANCE) 10 mg tablet Take 1 tablet (10 mg total) by mouth daily for 7 days 7 tablet 06/06/20 24 2024 Discontinued(S top Taking at Discharge) Wixela Inhub 100-50 mcg/dose diskus inhaler INHALE 1 PUFF TWICE A DAY -RINSE MOUTH WITH WATER AFTER USE. DO NOT SWALLOW. 60 each 2 06/24/19 25 2024 Discontinued(R eorder) propranoloL (INDERAL) 20 mg tabletIndicati ons:Essential tremor TAKE 1 TABLET (20 MG TOTAL) BY MOUTH 2 (TWO) TIMES A DAY NEEDED (TREMOR) 60 tablet 08/07/19 25 2024 Discontinued(R eorder) propranoloL (INDERAL) 20 mg tabletIndicati ons:Essential tremor Take 1 tablet (20 mg total) by mouth 2 (two) times a day 60 tablet 08/07/19 25 2024 Discontinued(R eorder) Hospital, Clinic, or Other Facility Administered Medication Ordered Dose Route Frequency Start Date End Date Status lidocaine (XYLOCAINE) 20 mg/mL (2 %) injection 3 mLIndications:Admi nistration of Local Anesthesia 3 mL One-Time Injection 08/15/2024 08/15/2024 Ended methylPREDNISolone acetate (DEPO-medrol) injection 80 mgIndications:Oste oarthritis of right glenohumeral joint,Right rotator cuff tear arthropathy 80 mg intra-artic One-Time Injection 08/15/2024 08/15/2024 Ended Active Problems Problem Noted Date Diagnosed Date Presence of Amulet left atrial appendage closure device 07/31/2024 DANNY (acute kidney injury) 04/10/2024 Acute on chronic diastolic CHF (congestive heart failure) 03/15/2024 Chronic blood loss anemia 02/08/2024 CKD stage 3b, GFR 30-44 ml/min 01/11/2024 Prediabetes 01/11/2024 Bleeding hemorrhoids 01/11/2024 Acute lower GI bleeding 01/11/2024 Gouty arthritis of foot 11/24/2023 Esophageal dysphagia 11/24/2023 Skin tear of right forearm without complication 09/27/2023 Atherosclerosis of ione ar teries of extremities with intermittent claudication, bilateral legs 07/31/2023 [place]en of macula of both eyes 05/30/2023 Mild persistent asthma 03/13/2023 Assessment & Plan (06/13/2023 7:53 PM SECURITY BUSINESS ANALYST): Controlled on advair and albuterol. No acute [...] heart failu re with preserved ejection fraction 07/25/2022 Assessment & Plan (06/13/2023 7:50 PM SECURITY BUSINESS ANALYST): BP soft but stable in office today [...] propranolol. Postural kyphosis of cervicothoracic region 01/2022 jail current use of anticoagulant 2 Peripheral arterial [...] - Electronically signed by Saud Penny M.D. Saud Penny M.D. Assessment & Plan (11/20/2021 [...] 04/21/2021 Assessment & Plan (06/13/2023 7:51 PM SECURITY BUSINESS ANALYST): More likely due to CHF and 7 [...] weeks or sooner if needed. Atrial fibrillation 04/21/2021 Assessment & Plan (02/06/2023 8:07 PM [...] 08/08/2019 Assessment & Plan (08/08/2019 10:35 AM SECURITY BUSINESS ANALYST): Noted post-operatively. She has been on iron [...] temporary refill of mirapex to stand alone [facility] until she can get mail order supply. [...] pharmacy. Assessment & Plan (08/08/2019 12:32 PM SECURITY BUSINESS ANALYST): She has a known tremor, but has progressively gotten worse with a limited hand quarter section ironer and difficulty holding a pen or fork. Will discuss additional treatment options with Dr. Morgan. Chronic GERD 11/02/2013 Overview (09/22/2016): Acid reflux Assessment & Plan (06/24/2019 9:31 AM SECURITY BUSINESS ANALYST): Symptoms have improved with protonix. She has had no further issues. We will continue with present regimen. Benign hypertension 11/02/2013 Overview (09/23/2016): Benign essential HTN Assessment & Plan (06/13/2023 7:49 PM SECURITY BUSINESS ANALYST): BP soft but stable in office today [...] above. Assessment & Plan (06/24/2019 12:50 PM SECURITY BUSINESS ANALYST): Well controlled will continue present regimen. Restless [...] 24 hours. Will rx augmentin as directed. Carroll diet, stay hydrated. Continue immodium as needed. ADDENDUM: patient states augmentin made symptoms worse, stop all abx and start budesonide as directed. Follow in 2 weeks. Parkinson's disease (tremor, stiffness, slow motion, unstable posture) 01/24/2022 12/08/2022 Lymphedema 12/06/2021 01/24/2022 Tremor 12/06/2021 04/10/2023 Overview (01/24/2022): Cogwheel tremor right hand greater than left consistent with Parkinson's treating for her restless leg with Mirapex with relief jail (current) use of opiate analgesic 11/30/2021 01/24/2022 [...] 022 Assessment & Plan (08/11/2021 9:51 AM SECURITY BUSINESS ANALYST): Patient presents with recurrent issues of left [...] consider checking C1 esterase and referral to human resources operations specialist. However, patient states she has done this [...] 06/01/2021 Assessment & Plan (06/02/2020 11:07 AM SECURITY BUSINESS ANALYST): Patient presents with congestion, purulent discharge, ear pain/pressure and PND most consistent with acute sinusitis. She reports she has been using sinus rinse, flonase and Muccinex OTC. COVID-19 rapid testing negative and no known COVID-19 exposure. She will continue quarantine until symptoms improving. She will begin antibiotic therapy and complete as prescribed. She will call with persistent or unresolved symptoms. jail (current) use of n on-steroidal anti-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s (nsaid) 11/18/2019 06/01/2021 Constipation due to opioid therapy 11/18/2019 01/24/2022 Edema 08/08/2019 11/18/2019 Assessment & Plan (08/08/2019 10:37 AM SECURITY BUSINESS ANALYST): Improved with lasix. We will repeat BMP to monitor renal function. She remains on aldactone which we will continue. She was encouraged to keep legs elevated while at rest and to avoid additional salt intake. If edema returns can prescribe lasix prn if renal function is stable Acute low back pain 08/08/2019 06/01/20 21 Assessment & Plan (08/08/2019 12:31 PM SECURITY BUSINESS ANALYST): Most likely secondary to degenerative disc disease. [...] 5. Nothing significant noted during patient's symptom. Dr Saud Ayers 2017-10-09 16:41:50 CDT Insomnia, persistent [...] management. Assessment & Plan (06/24/2019 12:50 PM SECURITY BUSINESS ANALYST): She has plans for rt hip replacement [...] Transient insomnia Keratosis, senilis 08/30/2011 8 Immunizations Immunization Administration Dates Next Due COVID-19 mRNA (Argus) 0.3 m L (30 mcg) vaccine (12 years and up) 03/24/2023 Influenza, Quad, Adjuvantate d, Intramuscular 03/10/2022 Influenza, Quadrivalent, Hig h Dose, Preservative Free, Intrr 03/24/2023,04/13/2021,03/31/2020 Influenza, Quadrivalent, Spl it, Intramuscular 04/04/2017,03/28/2016 Influenza, Split 05/18/2012 Influenza, Trivalent, Adjuva nted, Intramuscular 04/17/2019 Influenza, Trivalent, High D ose, Split, Preservative Free, Intramuscular 03/23/2024,04/17/2019,03/12/2018,03/23 Influenza, Trivalent, IM (MDV) 04/17/2015,2013 Influenza, Unspecified [...] drink = 0.6 oz pur e alcohol) [facility] [employer] Answer Date Recorded In the past 12 [...] attend chur ch or church services? Never 04/11/2024 Do you belong to [...] you have a drink containing alcohol? Never 07/29/2024 Q2: How many drinks containi ng alcohol do you have on a typical day when you are drinking? Patient does not drink Q3: How often do you have si x or more drinks on one occasion? Never 07/29/2024 Overall Financial Resource Strain (CARDIA) Answe r [...] in a mcfp (including now)? No 07/24/2023 Housing Stability Vital [...] were you homeless or living in a mcfp (including now)? No 04/11/2024 Personal Safety Answer [...] file Legal Sex Female 4:33 AM SECURITY BUSINESS ANALYST Gender Identity Not on file Sexual Orientation Not on file Occupation Industry Job Start Date Job End Date retired Not on file Not on file Not on file Last Filed Vital Signs Vital Sign Reading Time Taken Comments Blood Pressure 120/69 08/15/2024 1:26 PM SECURITY BUSINESS ANALYST Pulse 77 08/15/2024 1:26 PM SECURITY BUSINESS ANALYST Temperature 36.5 C (97.7 F) 08/01/2024 11:55 AM SECURITY BUSINESS ANALYST Respiratory Rate 20 08/01/2024 11:55 AM SECURITY BUSINESS ANALYST Oxygen Saturation 100% 08/01/2024 11:55 AM SECURITY BUSINESS ANALYST Inhaled Oxygen Concentration - - Weight 88 kg (194 lb) 08/15/2024 1:26 PM SECURITY BUSINESS ANALYST Height 152.4 cm (5') 08/15/2024 1:26 PM SECURITY BUSINESS ANALYST Body Mass Index 37.89 08/15/2024 1:26 PM SECURITY BUSINESS ANALYST Plan of Treatment Not on file Goals Goal Patient Goal Type Associated Problems Recent Progress Patient-Stated? Author BH-Pain Behavioral Health Improving( 3:34 PM CDT) Domitila Gaston, RN Note: Patient will establish a comfort-function goal and identify the pain level that will allow the patient to perform desired activities and achieve an acceptable quality of life. Medical Devices Implanted Type Area Hair Baler Device Identifier Shelf Expiration Date Model / Serial / Lot Depuy [employer] Inc [id number] [place] 52mm Sector Hip Shell Acetabular Gription Sterile Latex Free - [id number] Implanted:Qty: 1 on 07/10/2019 by Puma Mckenzie MD at [facility] Right: Hip [employer] 05/18/2029 [id number] / / [id number] Dep[employer] [id number] [place] 52mm 36mm Hip Neutral Liner Acetabular Altrx Sterile Latex Free - [id number] Implanted:Qty: 1 on 07/10/2019 by Puma Mckenzie MD at [facility] Right: Hip [employer] 04/18/2024 [id number] / / [id number] [employer] 1217-25-500 [place] 6.5mm 25mm Acetabular Cancellous Screw Bone Sterile - [id number] Implanted:Qty: 1 on 07/10/2019 by Puma Mckenzie MD at [facility] Right: Hip [employer] 12/16/2028 1217-25-500 / / [id number] Dep[employer] [id number] Articul/Ernesto 36mm Cementless Hip +1.5mm /14 Taper Head Femoral Latex Free - [id number] Implanted:Qty: 1 on 07/10/2019 by Puma Mckenzie MD at [facility] Right: Hip [employer] 03/18/2024 [id number] / / [id number] [employer] [id number] Actis Collared Hip /14 6 Standard Offset Stem Femoral - [id number] Implanted:Qty: 1 on 07/10/2019 by Puma Mckenzie MD at [facility] Right: Hip [employer] 06/18/2029 [id number] / / [id number] [employer] Maple [place] 6.5mm 35mm Acetabular Cancellous Screw Bone Sterile 1217-35-500 - [id number] Implanted:Qty: 1 on 11/01/2021 by Puma Mckenzie MD at [facility] Left: Hip [employer] 08/17/2031 1217-35-500 / / [id number] Dep[employer] [id number] [place] 52mm 36mm Hip Neutral Liner Acetabular Altrx Sterile Latex Free - [id number] Implanted:Qty: 1 on 11/01/2021 by Puma Mckenzie MD at [facility] Left: Hip [employer] 08/16/2026 [id number] / / [id number] Dep[employer] [place] 52mm Sector Hip Shell Acetabular Gription Sterile Latex Free [id number] - [id number] Implanted:Qty: 1 on 11/01/2021 by Puma Mckenzie MD at [facility] Left: Hip [employer] [id number] 08/17/2031 [id number] / / [id number] [employer] [id number] Actis Collar Hip 7 High Offset Stem Femoral - [id number] Implanted:Qty: 1 on 11/01/2021 by Puma Mckenzie MD at [facility] Left: Hip [employer] [id number] 08/17/2031 [id number] / / [id number] [employer] Articul/Ernesto 36mm Cementless Hip +1.5mm 06/01 Taper Head Femoral Latex Free [id number] - [id number] Implanted:Qty: 1 on 11/01/2021 by Puma Mckenzie MD at [facility] Left: Hip [employer] 09/16/2026 [id number] / / [id number] Medtronic Inc Protege Gps Exprt 9mm .079in 60mm 80cm Otw Delivery System Self [id number] - [id number] Implanted:Qty: 1 on 02/18/2022 by Stalin Arauz MD at [facility] [employer] Inc 10/22/2024 [id number] 0 -80 / / [id number] TerIdeaOffer Angio-Seal Evolution 6fr Vascular Closure [id number] - [id number] Implanted:Qty: 1 on 02/18/2022 by Stalin Arauz MD at [facility] [employer] 06/18/2022 [id number] / / [id number] [employer] Inc Zilver Ptx 6mm 120mm 125cm Drug Elute Otw Delivery System [id number] - [id number] Implanted:Qty: 1 on 02/18/2022 by Stalin Arauz MD at [facility] [employer] 10/21/2023 [id number] / / [id number] [employer] Inc Zilver Ptx 6mm 100mm 125cm Otw Preload Delivery System Self [id number] - [id number] Implanted:Qty: 1 on 02/18/2022 by Stalin Arauz MD at [facility] [employer] 11/09/2023 [id number] / / [id number] Medtronic Inc Everflex Entrust 8mm 60mm 120cm Self Expand Triaxial Low Profile - [id number] Implanted:Qty: 1 on 02/18/2022 by Stalin Arauz MD at [facility] [employer] Inc 07/26/2024 [id number] 0 -120 / / [id number] TerIdeaOffer Angio-Seal Evolution 6fr Vascular Closure [id number] - [id number] Implanted:Qty: 1 on 03/24/2022 by Stalin Arauz MD at [facility] [employer] [place] 05/18/2022 [id number] / / [id number] West Vascular Occluder Cvasc Judy Flexible Braided Amplatzer Amulet 20mm Nitinol [id number] - [id number] Implanted:Qty: 1 on 07/31/2024 by Stalin Arauz MD at [facility] 12/16/2028 9-ACP2-00 7-0 20 / / [id number] Procedures Procedure Name Priority Date/Time Associated Diagnosis Comments MS ARTHROCENTESIS ASPIR&/INJ MAJOR JT/BURSA W/O US Routine 08/15/2024 1:15 PM SECURITY BUSINESS ANALYST 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 TRANSTHORACIC ECHO (TTE) LIMITED/FOLLOW UP W LTD DOPPLER/CF WO CONTRAST Routine 08/01/2024 8:20 AM SECURITY BUSINESS ANALYST EGFR Routine 08/01/2024 7:55 AM SECURITY BUSINESS ANALYST DIFFERENTIAL AUTO Routine 08/01/2024 7:5 5 AM SECURITY BUSINESS ANALYST CBC WITH AUTO DIFFERENTIAL Routine 08/01/2024 7:55 AM SECURITY BUSINESS ANALYST MAGNESIUM Routine 08/01/2024 7:55 AM SECURITY BUSINESS ANALYST BASIC METABOLIC PANEL Routine 08/01/2024 7:55 AM SECURITY BUSINESS ANALYST ECG 12-LEAD Routine 08/01/2024 7:25 AM SECURITY BUSINESS ANALYST APTT Routine 07/31/2024 6:15 PM SECURITY BUSINESS ANALYST PROTIME-INR Routine 07/31/2024 6:15 PM SECURITY BUSINESS ANALYST PERC JUDY CLOSURE W/IMPLANT (WATCHMAN) [id number] Routine 07/31/2024 11:48 AM SECURITY BUSINESS ANALYST Paroxysmal atrial fibrillation (HCC) TRANSESOPHAGEAL ECHO (AZEEM) W DOPPLER/CF WO CONTRAST Routine 07/31/2024 11:45 AM SECURITY BUSINESS ANALYST POCT ACTIVATED CLOTTING TIME, HIGH RANGE Routine 07/31/2024 11:30 AM SECURITY BUSINESS ANALYST MS AN ELECTIVE ENDOTRACHEAL AIRWAY Routine 07/31/2024 11:15 AM SECURITY BUSINESS ANALYST ECG 12-LEAD Routine 07/31/2024 9:15 AM SECURITY BUSINESS ANALYST PREPARE RBC STAT 07/31/2024 8:59 AM SECURITY BUSINESS ANALYST EGFR Routine 07/31/2024 8:41 AM SECURITY BUSINESS ANALYST DIFFERENTIAL AUTO Routine 07/31/2024 8:4 1 AM SECURITY BUSINESS ANALYST TYPE AND SCREEN Timed 07/31/2024 8:41 AM SECURITY BUSINESS ANALYST COMPREHENSIVE METABOLIC PANEL Routine 07/31/2024 8:41 AM SECURITY BUSINESS ANALYST CBC WITH AUTO DIFFERENTIAL Routine 07/31/2024 8:41 AM SECURITY BUSINESS ANALYST EGFR Routine 07/15/2024 10:29 AM SECURITY BUSINESS ANALYST Chronic heart failure with preserved ejection fraction (HCC) BASIC METABOLIC PANEL Routine 07/15/2024 10:29 AM SECURITY BUSINESS ANALYST Chronic heart failure with preserved ejection fraction (HCC) PRO B-TYPE NATRIURETIC PEPTIDE Routine 07/15/2024 10:29 AM SECURITY BUSINESS ANALYST Chronic heart failure with preserved ejection fraction (HCC) from Last 3 Months Results * MS ARTHROCENTESIS ASPIR&/INJ MAJOR JT/BURSA W/O US (08/15/2024 1:15 PM SECURITY BUSINESS ANALYST) Narrative Jadyn Hobson PA - 08/15/2024 1:15 PM SECURITY BUSINESS ANALYST Jadyn Hobson PA 08/15/2024 2:12 PM Large Joint (Hip, Knee, Shoulder) Injection: R subacromial bursa Performed by: Jadyn Hobson PA Authorized by: Jadyn Hobson PA Large Joint Injection/Aspiration: Consent Given by: Patient Site marked: the procedure site was marked Timeout: prior to procedure the correct patient, procedure, and site was verified Verbal consent obtained: Yes Supporting Documentation: Indications: Pain Procedure Details: Location: Shoulder Site: R subacromial bursa Prep: patient was prepped and draped in usual sterile fashion Prep: patient was prepped using a clean technique Needle Size: 22 G Approach: Lateral Ultrasound guided: No Fluroscopic guidance: No Medications: 3 mL lidocaine 20 mg/mL (2 %); 80 mg methylPREDNISolone acetate 80 mg/mL Patient tolerance: Patient tolerated the procedure well with no immediate complications us Jadyn BRUCE IN CLINIC/BEDSIDE RADHA IRBY Final Result * TRANSTHORACIC ECHO (TTE) LIMITED/FOLLOW UP W LTD DOPPLER/CF WO CONTRAST (08/01/2024 8:20 AM SECURITY BUSINESS ANALYST) Anatomical Region Laterality Modality Ultrasound 08/01/2024 6:46 AM SECURITY BUSINESS ANALYST Narrative 08/01/2024 9:39 [place] [address] Limited Echocardiogram Report Patient Name: TESS BENEDICT I : 1935 Study Date: 08/01/2024 6:46:22 AM Gender: F Tech: Location: [id number] Ref Provider: STALIN ARAUZ Height(Cm): 152 BSA: 1.87 Weight(Kg): 83 Heart Rate: 77 BP: 118 / 56 Quality: Good Order Provider: STALIN ARAUZ PROCEDURES: Echocardiographic Report: Limited transthoracic echocardiogram with 2D and color Doppler. INDICATIONS: S/P Amulet. MEASUREMENTS: 2D/MM Value Range EF Mod BP 58 % [ 54 - 74 ] 2D/MM Value Range - FINDINGS: Atrial Septum: Normal atrial septum. Left Ventricle: Normal left ventricular systolic function with no focal wall motion abnormalities. Normal left ventricular size. Ejection fraction is measured at 58 %. GLS is abnormal. Left Atrium: There is moderate enlargement of left atrium. Amulet device present. Right Ventricle: Normal right ventricular size. Normal right ventricular systolic function. Aortic Valve: Aortic cusps appear moderately calcified. Trace aortic valve regurgitation. Mitral Valve: Normal structure of the mitral valve. Trivial regurgitation of the mitral valve. Pericardium: Normal pericardium with no significant pericardial effusion. CONCLUSIONS: Normal left ventricular systolic function with no focal wall motion abnormalities. Normal left ventricular size. Ejection fraction is measured at 58 %. GLS is abnormal. Normal right ventricular size. Normal right ventricular systolic function. There is moderate enlargement of left atrium. Amulet device present. Normal pericardium with no significant pericardial effusion. Electronically Signed By: Latanya Fitzgerald DO, FRANCISCO JAVIER HUERTA FASNC 08/01/2024 9:38:26 AM SECURITY BUSINESS ANALYST Procedure Note Latanya Fitzgerald DO - 08/01/2024 [place] [address] Limited Echocardiogram Report Patient Name: TESS BENEDICT I : 1935 Study Date: 08/01/2024 6:46:22 AM Gender: F [facility]: Location: [id number] Ref Provider: STALIN ARAUZ Height(Cm): 152 BSA: 1.87 Weight(Kg): 83 Heart Rate: 77 BP: 118 / 56 Quality: Good Order Provider: STALIN ARAUZ PROCEDURES: Echocardiographic Report: Limited transthoracic echocardiogram with 2D and color Doppler. INDICATIONS: S/P Amulet. MEASUREMENTS: 2D/MM Value Range EF Mod BP 58 % [ 54 - 74 ] 2D/MM Value Range - FINDINGS: Atrial Septum: Normal atrial septum. Left Ventricle: Normal left ventricular systolic function with no focal wall motionabnormalities. Normal left ventricular size. Ejection fraction is measured at 58 %. GLS isabnormal. Left Atrium: There is moderate enlargement of left atrium. Amulet device present. Right Ventricle: Normal right ventricular size. Normal right ventricular systolicfunction. Aortic Valve: Aortic cusps appear moderately calcified. Trace aortic valveregurgitation. Mitral Valve: Normal structure of the mitral valve. Trivial regurgitation of the mitralvalve. Pericardium: Normal pericardium with no significant pericardial effusion. CONCLUSIONS: Normal left ventricular systolic function with no focal wall motionabnormalities. Normal left ventricular size. Ejection fraction is measured at 58 %. GLS isabnormal. Normal right ventricular size. Normal right ventricular systolicfunction. There is moderate enlargement of left atrium. Amulet device present. Normal pericardium with no significant pericardial effusion. Electronically Signed By: Latanya Fitzgerald DO, FACFord, SOLANGE MCINTYRE 08/01/2024 9:38:26 AM SECURITY BUSINESS ANALYST us Stalin Arauz MD CV ECHO PROCEDURES Final Result * (ABNORMAL) eGFR (08/01/2024 7:55 AM SECURITY BUSINESS ANALYST) eGFR 43(L) >=60 mL/min/1. 73 m2 Comment: Interpretive Data Reference Interval Normal >/= 90 mL/min/1.73m2 Mildly decreased* 60 - 89 mL/min/1.73m2 Mildly to moderately decreased 45 - 59 mL/min/1.73m2 Moderately to severely decreased 30 - 44 mL/min/1.73m2 Severely decreased 15 - 29 mL/min/1.73m2 Kidney Failure < 15 mL/min/1.73m2 *Relative to young adult level Estimated glomerular [...] interpretive data was last reviewed 2021. Blood 08/01/2024 7:55 AM SECURITY BUSINESS ANALYST 08/01/2024 8:13 AM SECURITY BUSINESS ANALYST us Stalin Arauz MD LAB BLOOD ORDERABLES Final Resu lt [facility] [id number] Department [place] [address] * (ABNORMAL) Differential, auto (08/01/2024 7:55 AM SECURITY BUSINESS ANALYST) Neutrophil abs 9.9(H) 1.5 - 6.5 K/cumm Imm gran abs 0.1 0.0 - 0.1 K/cumm [facility] Lymphocyte abs 0.6(L) 0.8 - 3.3 K/cumm [facility] Monocyte abs 0.8 0.2 - 0.8 K/cumm [facility] Eosinophil abs 0.0 0.0 - 0.5 K/cumm [facility] Basophil abs 0.0 0.0 - 0.1 K/cumm [facility] Neutrophil pct 86.7 % [facility] Comment: Interpretive Data Percent cell count reference ranges are not reported, since discordance with absolute values may lead to misinterpretation of CBC data. Current Interpretive Data was last revised on 2017. Imm gran pct 0.9 % [facility] Comment: Interpretive Data Percent cell count reference ranges are not reported, since discordance with absolute values may lead to misinterpretation of CBC data. Current Interpretive Data was last revised on 2017. Lymphocyte pct 5.2 % [facility] Comment: Interpretive Data Percent cell count reference ranges are not reported, since discordance with absolute values may lead to misinterpretation of CBC data. Current Interpretive Data was last revised on 2017. Monocyte pct 6.8 % [facility] Comment: Interpretive Data Percent cell count reference ranges are not reported, since discordance with absolute values may lead to misinterpretation of CBC data. Current Interpretive Data was last revised on 2017. Eosinophil pct 0.2 % [facility] Comment: Interpretive Data Percent cell count reference ranges are not reported, since discordance with absolute values may lead to misinterpretation of CBC data. Current Interpretive Data was last revised on 2017. Basophil pct 0.2 % [facility] Comment: Interpretive Data Percent cell count reference ranges are not reported, since discordance with absolute values may lead to misinterpretation of CBC data. Current Interpretive Data was last revised on 2017. Blood 08/01/2024 7:55 AM SECURITY BUSINESS ANALYST 08/01/2024 8:13 AM SECURITY BUSINESS ANALYST us Stalin Arauz MD LAB BLOOD ORDERABLES Final Resu lt [facility] [id number] Department [place] [address] * (ABNORMAL) CBC with auto differential (08/01/2024 7:55 AM SECURITY BUSINESS ANALYST) WBC 11.4(H) 3.8 - 9.9 K/cumm Hgb 12.2 11.9 - 15.5 g/dL [facility] Hct 41.7 35.6 - 45.5 % [facility] Plt 276 150 - 400 K/cumm [facility] MPV 9.4 9.1 - 12.3 fL [facility] RBC 4.78 3.90 - 5.20 M/cumm [facility] MCV 87.2 81.3 - 96.4 fL [facility] MCH 25.5(L) 27.1 - 33.3 pg [facility] MCHC 29.3(L) 32.3 - 35.7 g/dL [facility] RDW CV 17.1(H) 11.1 - 14.9 % [facility] RDW SD 53.6(H) 35.7 - 48.1 fL [facility] NRBC abs 0.00 0.00 - 0.01 K/cumm [facility] Blood 08/01/2024 7:55 AM SECURITY BUSINESS ANALYST 08/01/2024 8:13 AM SECURITY BUSINESS ANALYST Stalin Arauz MD LAB BLOOD ORDERABLES Final Resu lt Performing Organization Address [facility] Co de Phone Number CHIDI [address] [place] [address] * Magnesium (08/01/2024 7:55 AM SECURITY BUSINESS ANALYST) [facility] Magnesium 2.3 1.4 - 2.5 mg/dL Blood 08/01/2024 7:55 AM SECURITY BUSINESS ANALYST 08/01/2024 8:13 AM SECURITY BUSINESS ANALYST Stalin Arauz MD LAB BLOOD ORDERABLES Final Resu lt Performing Organization Address [facility] de Phone Number [facility] [address] [place] [address] * (ABNORMAL) Basic metabolic panel (08/01/2024 7:55 AM SECURITY BUSINESS ANALYST) Pathologist [facility] Sodium 137 135 - 145 mmol/L Potassium, pl 4.1 3.3 - 4.9 mmol/L [facility] Chloride 99 97 - 110 mmol/L [facility] CO2 24 22 - 32 mmol/L [facility] Anion gap 14 2 - 15 mmol/L [facility] BUN 43(H) 6 - 25 mg/dL [facility] Creatinine 1.22(H) 0.60 - 1.10 mg/dL [facility] Glucose 100 70 - 199 mg/dL [facility] Comment: Interpretive Data Fasting glucose >/= [...] 8.5 - 10.3 mg/dL [facility] Blood 08/01/2024 7:55 AM SECURITY BUSINESS ANALYST 08/01/2024 8:13 AM SECURITY BUSINESS ANALYST Stalin Arauz MD LAB BLOOD ORDERABLES Final Resu lt Performing Organization Address [facility] Co de Phone Number [facility]I [address] [place] [address] * ECG 12 lead (08/01/2024 7:25 AM SECURITY BUSINESS ANALYST) 08/01/2024 7:25 AM SECURITY BUSINESS ANALYST Narrative [facility] - 08/01/2024 10:33 AM SECURITY BUSINESS ANALYST Vent Rate: 79 bpm RR Interval: 757 msec MS Interval: 0 msec QRS Duration: 73 msec QT Interval: 378 msec QTC Interval: 412 msec P-R-T [place]: 0 - 74 - 17 degrees IMPRESSION: ATRIAL FIBRILLATION WITH CONTROLLED VENTRICULAR RESPONSE Electronically Signed By: Collin Rich MD, [facility] Stalin Arauz MD ECG ORDERABLES Final Result Performing Organization Address [facility] Phone Number [facility] * aPTT (07/31/2024 6:15 PM SECURITY BUSINESS ANALYST) aPTT 32 28 - 38 sec Comment: Interpretive Data Heparin therapeutic range: 66.0 - 100.0 seconds. Range based on correlation with therapeutic heparin activity range of 0.3 - 0.7 Units/mL. Current interpretive data was last revised on 2023. Blood 07/31/2024 6:15 PM SECURITY BUSINESS ANALYST 07/31/2024 6:19 PM SECURITY BUSINESS ANALYST Stalin Arauz MD LAB BLOOD ORDERABLES Final Resu lt Performing Organization Address [facility] Co de Phone Number CHIDI [address] Department [place] [address] * Protime-INR (07/31/2024 6:15 PM SECURITY BUSINESS ANALYST) PT 12.2 9.7 - 13.0 sec INR 1.13 0.90 - 1.20 [facility] Comment: Interpretive data Oral anticoagulant therapeutic ranges: Venous thromboembolism prophylaxis or treatment: 2.0-3.0 CARDIOLOGY Standard range: 2.0-3.0 High-intensity range: 2.5-3.5 Refer to indication-specific guidelines for appropriate target ranges for prosthetic heart valve replacement. Current interpretive data was last revised on 2019. Blood 07/31/2024 6:15 PM SECURITY BUSINESS ANALYST 07/31/2024 6:19 PM SECURITY BUSINESS ANALYST us Stalin Arauz MD LAB BLOOD ORDERABLES Final Resu lt [id number] [place] [address] * PERC JUDY CLOSURE W/IMPLANT (WATCHMAN) [id number] (07/31/2024 11:48 AM SECURITY BUSINESS ANALYST) Anatomical Region Laterality Modality X-Ray Angiograph y Narrative 07/31/2024 12:29 PM SECURITY BUSINESS ANALYST HISTORY 88y.o. old female with a history including chronic atrial fibrillation, with high risk of bleeding due to frequent bruising. He underwent workup and presents today for eft atrial appendage closure. Paul Vasc score 6, HAS BLED score 4 Informed consent was obtained after detailed discussion with the patient about the procedures, risks, benefits, and alternatives. The patient consented to open-heart surgery should device placement fail. The patient was brought to the [facility] OR in a fasting state. A time-out was performed. The patient was prepped and draped in the usual sterile fashion. General anesthesia was administered. The patient received endotracheal intubation. OPERATORS: Stalin arauz MD, VASCULAR ACCESS The right femoral vein was accessed using the modified Seldinger technique. An 8-Equatorial [place] sheath was inserted. TRANSSEPTAL PUNCTURE The patient was kept therapeutically anticoagulated throughout the case. Transseptal puncture was made to gain access to the left atrium using a [employer] needle system. Transseptal catheterization was performed and guided by AZEEM see imaging note . The transseptal puncture was performed mid and inferior position. The wire was advanced through the left atrium and a double curved delivery sheath was placed over the wire. An Amplatzer delivery catheter TorqVue was advanced into the left atrial appendage. A 5-Equatorial [place] pigtail was used to gain access into the left atrial appendage. Appendage angiograms were performed. Appendage was determined to be appropriate size for 20 mm left atrial appendage occluder device as suggested by angiograms and echocardiographic data. LA pressure was 17 mm Hg The Amplatzer Amulet 20 mm occluder was inserted and advanced into the left atrial appendage. The device was deployed in position within the left atrial appendage. CLOSE criteria was used to confirm successful device deployment. The device position and compression ratio was verified by transesophageal echo. The compression ratio was acceptable. Tug test demonstrated adequate resistance in spring back to the original position. No JUDY leaks were present after deployment. We pull the disc backward to try to go over the ridge however it fell back below the ridge. The device was released and stable. Protamine administered. Catheter removed and aemostasis achieved using a purse string suture after removal of all catheters, wires, and sheaths. FINAL INTERPRETATION Successful percutaneous closure of the left atrial appendage with a 20 mm Amplatzer Amulet occluder device without in lab complications. Stalin Arauz MD us Stalin Arauz MD CV ELECTROPHYSIOLOGY PROCS Farzana l Result * TRANSESOPHAGEAL ECHO (AZEEM) W DOPPLER/CF WO CONTRAST (07/31/2024 11:45 AM SECURITY BUSINESS ANALYST) Anatomical Region Laterality Modality Ultrasound Narrative 07/31/2024 12:35 PM SECURITY BUSINESS ANALYST Table formatting from the original result was not included. Result Text PROCEDURE Transesophageal ECHO for left atrial appendage closure INDICATION 88-year-old with paroxysmal Atrial fibrillation and [id number] score 6 , HAS BLED 4 with hx of frequent bruising PROCEDURE DETAILS Patient underwent general anesthesia by the anesthesia staff. AZEEM probe was inserted. There was no evidence of clot in JUDY. Baseline images showed moderate mitral regurgitation. Normal LV function. Small pericardial effusion. Baseline AZEEM measurements were taken and was fit for device size 28 mm . Measurement AZEEM 0 AZEEM 25 AZEEM 68 AZEEM 135 JUDY orifice 21 24 22 Landing zone 14 11 21 Depth Trans-septal puncture was performed with echo guidance with easy entry into the left atrium mid and inf position. The sheath was advanced under ECHO guidance. Amulet device was loaded and then deployed under echo guidance. Final images showed good device position and no evidence of color leak around it. Device remained stable after released. The device disc late below pulmonary Ridge Pulmonary vein flow not impeded. There is no change baseline pericardial effusion. Impression: Transesophageal ECHO for successful left atrial appendage occlusion using 20 mm amulet device without in lab complications Maria Guadalupe Bailey MD Stalin Arauz MD CV ECHO PROCEDURES Final Result * (ABNORMAL) POC Activated Clotting Time, High Range (07/31/2024 11:30 AM SECURITY BUSINESS ANALYST) ACT 280(H) 87 - 138 sec Blood 07/31/2024 11:3 0 AM SECURITY BUSINESS ANALYST 07/31/2024 11:30 AM SECURITY BUSINESS ANALYST Stalin Arauz MD LAB BLOOD ORDERABLES Final Resu lt [facility] [id number] [facility] Department [place] [address] * MS AN ELECTIVE ENDOTRACHEAL AIRWAY (07/31/2024 11:15 AM SECURITY BUSINESS ANALYST) Narrative Rosita Sharma AA - 07/31/2024 11:15 AM SECURITY BUSINESS ANALYST Rosita Sharma AA 07/31/2024 11:15 AM Airway Patient location: OR Urgency: elective Indications for airway management: anesthesia and airway protection Difficult airway: no Staff: Supervising provider: Maria Guadalupe Talavera MD Placed by: AA: Rosita Sharma AA Emergent airway documentation: Risks and benefits discussed: yes Consent obtained: yes Consent given by: patient Airway prep: Preoxygenated: yes Patient position: sniffing Mask difficulty assessment: 1 - vent by mask Spontaneous ventilation during airway: absent Sedation level during airway: GA Final airway details: Final airway type: endotracheal airway Tube type: ETT ETT size: 7.0 mm Cuffed: yes Technique used for successful ETT placement: video laryngoscopy Insertion site: oral Blade type: Sobeida Video blade type: Braden Blade size: 3 Cormack-Lehane (video): grade I - full view of glottis Cuff volume: 5 mL Cuff inflated with: air ETT to lips: 21 cm Placement verified by: auscultation and CO2 detection Airway secured with: silk tape Number of attempts: 1 us Maria Guadalupe Talavera MD ANESTHESIA ORDERABLES Final Resu lt * ECG 12 lead (07/31/2024 9:15 AM SECURITY BUSINESS ANALYST) 07/31/2024 9:15 AM SECURITY BUSINESS ANALYST Narrative [facility] - 07/31/2024 1:18 PM SECURITY BUSINESS ANALYST Vent Rate: 80 bpm RR Interval: 743 msec MS Interval: 0 msec QRS Duration: 78 msec QT Interval: 389 msec QTC Interval: 425 msec P-R-T [place]: 0 - 91 - 23 degrees IMPRESSION: ATRIAL FIBRILLATION BORDERLINE RIGHT AXIS DEVIATION ABNORMAL RHYTHM ECG Electronically Signed By: Dr. Gardenia Harper [facility] Stalin Arauz MD ECG ORDERABLES Final Result [facility] * Prepare RBC: 2 Units (07/31/2024 8:59 AM SECURITY BUSINESS ANALYST) Product code [id number] Unit Number [id number] 1-N [facility] Product Blood Type APOS [facility] Dispense Status RETURNED [facility] Product code [id number] [facility] Unit Number [id number] 7-Q [facility] Product Blood Type APOS [facility] Dispense Status RETURNED [facility] Blood 07/31/2024 8:59 AM SECURITY BUSINESS ANALYST Narrative [facility] - 08/04/2024 12:07 AM SECURITY BUSINESS ANALYST Specify Procedure:->LAAO Are special requirements needed? (All products are leukoreduced and CMV- safe)- >No Date required:-[id number] LRRBC # of [id number] Reasons:-Hold for procedure (specify procedure)} Stalin Arauz MD BLOOD BANK PRODUCT ORDERABLES F inal Result Performing Organization Address [facility] Co de Phone Number [facility] VAUGHAN [address] [place] [address] * (ABNORMAL) eGFR (07/31/2024 8:41 AM SECURITY BUSINESS ANALYST) eGFR 40(L) >=60 mL/min/1. 73 m2 Comment: Interpretive Data Reference Interval Normal >/= 90 mL/min/1.73m2 Mildly decreased* 60 - 89 mL/min/1.73m2 Mildly to moderately decreased 45 - 59 mL/min/1.73m2 Moderately to severely decreased 30 - 44 mL/min/1.73m2 Severely decreased 15 - 29 mL/min/1.73m2 Kidney Failure < 15 mL/min/1.73m2 *Relative to young adult level Estimated glomerular [...] interpretive data was last reviewed 2021. Blood 07/31/2024 8:41 AM SECURITY BUSINESS ANALYST 07/31/2024 8:44 AM SECURITY BUSINESS ANALYST Stalin Arauz MD LAB BLOOD ORDERABLES Final Resu lt Performing Organization Address [facility]/ZIP Co de Phone Number [facility]I VAUGHAN [address] [place] [address] * (ABNORMAL) Differential, auto (07/31/2024 8:41 AM SECURITY BUSINESS ANALYST) Neutrophil abs 8.2(H) 1.5 - 6.5 K/cumm Imm gran abs 0.1 0.0 - 0.1 K/cumm [facility] Lymphocyte abs 0.6(L) 0.8 - 3.3 K/cumm [facility] Monocyte abs 0.6 0.2 - 0.8 K/cumm [facility] Eosinophil abs 0.3 0.0 - 0.5 K/cumm [facility] Basophil abs 0.1 0.0 - 0.1 K/cumm [facility] Neutrophil pct 84.2 % [facility] Comment: Interpretive Data Percent cell count reference ranges are not reported, since discordance with absolute values may lead to misinterpretation of CBC data. Current Interpretive Data was last revised on 2017. Imm gran pct 1.0 % [facility] Comment: Interpretive Data Percent cell count reference ranges are not reported, since discordance with absolute values may lead to misinterpretation of CBC data. Current Interpretive Data was last revised on 2017. Lymphocyte pct 5.8 % [facility] Comment: Interpretive Data Percent cell count reference ranges are not reported, since discordance with absolute values may lead to misinterpretation of CBC data. Current Interpretive Data was last revised on 2017. Monocyte pct 5.7 % [facility] Comment: Interpretive Data Percent cell count reference ranges are not reported, since discordance with absolute values may lead to misinterpretation of CBC data. Current Interpretive Data was last revised on 2017. Eosinophil pct 2.7 % [facility] Comment: Interpretive Data Percent cell count reference ranges are not reported, since discordance with absolute values may lead to misinterpretation of CBC data. Current Interpretive Data was last revised on 2017. Basophil pct 0.6 % [facility] Comment: Interpretive Data Percent cell count reference ranges are not reported, since discordance with absolute values may lead to misinterpretation of CBC data. Current Interpretive Data was last revised on 2017. Blood 07/31/2024 8:41 AM SECURITY BUSINESS ANALYST 07/31/2024 8:45 AM SECURITY BUSINESS ANALYST us Stalin Arauz MD LAB BLOOD ORDERABLES Final Resu lt [facility] [address] Department [place] [address] * (ABNORMAL) CBC with auto differential (07/31/2024 8:41 AM SECURITY BUSINESS ANALYST) WBC 9.8 3.8 - 9.9 K/cumm Hgb 13.5 11.9 - 15.5 g/dL [facility] Hct 45.7(H) 35.6 - 45.5 % [facility] Plt 321 150 - 400 K/cumm [facility] MPV 9.1 9.1 - 12.3 fL [facility] RBC 5.33(H) 3.90 - 5.20 M/cumm [facility] MCV 85.7 81.3 - 96.4 fL [facility] MCH 25.3(L) 27.1 - 33.3 pg [facility] MCHC 29.5(L) 32.3 - 35.7 g/dL [facility] RDW CV 17.2(H) 11.1 - 14.9 % [facility] RDW SD 53.1(H) 35.7 - 48.1 fL [facility] NRBC abs 0.00 0.00 - 0.01 K/cumm [facility] Blood 07/31/2024 8:41 AM SECURITY BUSINESS ANALYST 07/31/2024 8:45 AM SECURITY BUSINESS ANALYST Stalin Arauz MD LAB BLOOD ORDERABLES Final Resu lt Performing Organization Address City/[facility]/ZIP Co de Phone Number [facility] VAUGHAN [address] [place] [address] * Type and screen (07/31/2024 8:41 AM SECURITY BUSINESS ANALYST) Pathologist [facility] ABO Rh A Positive Ever, indirect Negative [facility] Blood 07/31/2024 8:41 AM SECURITY BUSINESS ANALYST 07/31/2024 8:52 AM SECURITY BUSINESS ANALYST Narrative [facility] - 07/31/2024 10:08 AM SECURITY BUSINESS ANALYST Has the patient had Daratumumab or Isatuximab in the past 6 months?->Unknown Stalin Arauz MD LAB BLOOD BANK TEST ORDERABLES Final Result [facility] [id number] [facility] [place] [address] * (ABNORMAL) Comprehensive metabolic panel (07/31/2024 8:41 AM SECURITY BUSINESS ANALYST) Sodium 137 135 - 145 mmol/L Potassium, pl 3.7 3.3 - 4.9 mmol/L [facility] Chloride 94(L) 97 - 110 mmol/L [facility] CO2 28 22 - 32 mmol/L [facility] Anion gap 15 2 - 15 mmol/L [facility] BUN 54(H) 6 - 25 mg/dL [facility] Creatinine 1.30(H) 0.60 - 1.10 mg/dL [facility] Glucose 91 70 - 199 mg/dL [facility] Comment: [...] interpretive data was last revised 2022. Calcium 10.1 8.5 - 10.3 mg/dL [facility] Bilirubin, total 0.6 0.1 - 1.2 mg/dL [facility] Protein, pl 7.7 6.5 - 8.5 g/dL [facility] Albumin 3.9 3.5 - 5.0 g/dL [facility] Alk phos 155(H) 40 - 130 Units/L [facility] ALT 11 7 - 45 Units/L [facility] AST 18 10 - 45 Units/L [facility] Blood 07/31/2024 8:41 AM SECURITY BUSINESS ANALYST 07/31/2024 8:44 AM SECURITY BUSINESS ANALYST us Stalin Arauz MD LAB BLOOD ORDERABLES Final Resu lt [facility] [address] Department [place] [address] * (ABNORMAL) eGFR (07/15/2024 10:29 AM SECURITY BUSINESS ANALYST) eGFR 32(L) >=60 mL/min/1. 73 m2 Comment: Interpretive Data Reference Interval Normal >/= 90 mL/min/1.73m2 Mildly decreased* 60 - 89 mL/min/1.73m2 Mildly to moderately decreased 45 - 59 mL/min/1.73m2 Moderately to severely decreased 30 - 44 mL/min/1.73m2 Severely decreased 15 - 29 mL/min/1.73m2 Kidney Failure < 15 mL/min/1.73m2 *Relative to young adult level Estimated glomerular [...] interpretive data was last reviewed 2021. Blood 07/15/2024 10:2 9 AM SECURITY BUSINESS ANALYST 07/15/2024 11:05 AM SECURITY BUSINESS ANALYST us Maude Harris BEAUTY ARTIST LAB BLOOD ORDERABLES Fi nal Result [facility] ([place]) [address] Department [place] [address] * (ABNORMAL) Pro B-type natriuretic peptide (07/15/2024 10:29 AM SECURITY BUSINESS ANALYST) NT-proBNP 4,320(H) <=450 pg/mL Comment: Interpretive Comments: A. Dyspnea in Acute Care Setting All Ages: < 300 pg/ml, acute heart failure unlikely. < 50 yrs: 300 - 450 pg/ml, further investigation warranted. > 450 pg/ml, acute heart failure likely. 50 - 74 yrs: 300 - 900 pg/ml, further investigation warranted. > 900 pg/ml, acute heart failure likely . > or = 75 yrs: 450 - 1800 pg/ml, further investigation warranted. > 1800 pg/ml, acute heart failure likely. B. Non-acute Setting < 75 yrs < 125 pg/ml, rules out heart failure. > or = 125 pg/ml, further investigation warranted. > or = 75 yrs < 450 pg/ml, rules out heart failure. > or = 450 pg/ml, further investigation [...] Interpretive Data Last Revised Date: 2018. Blood 07/15/2024 10:2 9 AM SECURITY BUSINESS ANALYST 07/15/2024 11:05 AM SECURITY BUSINESS ANALYST Maude Harris BEAUTY ARTIST LAB BLOOD ORDERABLES nal Result [facility] ([place]) [address] Department of Laboratories [place], [place] [id number] * (ABNORMAL) Basic metabolic panel (07/15/2024 10:29 AM SECURITY BUSINESS ANALYST) Sodium 134(L) 135 - 145 mmol/L Potassium, pl 4.1 3.3 - 4.9 mmol/L [facility] ([place]) Chloride 90(L) 97 - 110 mmol/L [facility] ([place]) CO2 33(H) 22 - 32 mmol/L [facility] ([place]) Anion gap 11 2 - 15 mmol/L [facility] BUN 67(H) 6 - 25 mg/dL [facility] ([place]) Creatinine 1.57(H) 0.60 - 1.10 mg/dL [facility] ([place]) Glucose 99 70 - 199 mg/dL [facility] ([place]) [...] 10.0 8.5 - 10.3 mg/dL [facility] ([place]) Blood 07/15/2024 10:2 9 AM SECURITY BUSINESS ANALYST 07/15/2024 11:05 AM SECURITY BUSINESS ANALYST Maude Harris NP LAB BLOOD ORDERABLES nal Result [facility] ([place]) [address] [facility] [address] Department [place] [address] from Last [address] [place] [address] MEDICARE [facility]ET[employer] S[facility]IOR [facility] MEDICARE MEDICARE [facility] MEDICARE [facility] MEDICARE BLUE [employer]OSS MEDICARE SUPPLEMENT Advance Directives For more information, please contact: [phone] Documents on File Type Date Recorded Patient Street Railway Line Installer Expl anation ADVANCE DIRECTIVE 05/14/2019 1:34 PM [...] 7:42 PM 12/30/2022 3:56 PM Care Teams 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 Relationship Specialty Start Date End Date Pepper Morgan MD PCP - General 09/16/16 Hank Garibay MD [address] [facility] [address] [place] [address] Surgeon Orthopedic Surgery 03/27/17 Jacky Murry MD [address] [facility] [address] [place] [address] Ophthalmology 03/27/17 Puma Mckenzie MD [address] [place] [address] [address] [place] [address] Surgeon Orthopedic Surgery 07/11/19 Neha Jackson, PT Physical Therapist Physical Therapy 12/01/21 Stalin Arauz MD Consulting Physician Cardiology 12/08/22 Tiffany Rojas PA [address] [place] [address] [address] [place] [address] Gastroenterology 12/30/22 Klaus Deshpande MD [address] [place] [address] [address] [place] [address] Consulting Physician Neurology 06/13/23
--- OUTSIDE RECORDS SUMMARY | 2024-08-24 16:49 | XMS_ITS | Clinical Summary ---
Author Organization [facility] Address [address] [place] [address] Care Team Providers Care Seismic Plotter Name Role Phone Pepper Morgan MD Primary Care Provider + [phone] Hank Garibay MD Unavailable [phone] Jacky Murry MD Unavailable [phone] Puma Mckenzie MD Unavailable [phone] Neha Jackson PT Unavailable Unavailable Stalin Arauz MD Unavailable [phone] Tiffany Rojas PA Unavailable [phone] Klaus Deshpande MD Unavailable [phone] Allergies Active Allergy Reactions Criticality Noted Date [...] 2 (two) times a day 60 tablet 06/26/19 25 Active metOLazone (ZAROXOLYN) 5 mg tablet Take 1 tablet (5 mg total) by mouth 2 (two) times a week 15 tablet 3 06/27/19 25 Active gabapentin (NEURONTIN) 100 mg [...] right forearm without complication 09/27/2023 Atherosclerosis 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 She has been on iron [...] pharmacy. 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 Will discuss additional treatment options with Dr. Morgan. Chronic GERD 11/02/2013 Overview (09/22/2016): Acid reflux Assessment & Plan (06/24/2019 9:31 AM RECEPTION): Symptoms have improved with protonix. She has had no further issues. We will continue with present regimen. Benign hypertension 11/02/2013 Overview (09/23/2016): Benign essential HTN Assessment & Plan (06/13/2023 7:49 PM RECEPTION): BP soft but stable in office today [...] above. Assessment & Plan (06/24/2019 12:50 PM RECEPTION): Well controlled will continue present regimen. Restless [...] 24 hours. Will rx augmentin as directed. [place] diet, stay hydrated. Continue immodium as needed. ADDENDUM: patient states augmentin made symptoms worse, stop all abx and start budesonide as directed. Follow in 2 weeks. 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 However, patient states she has done this [...] 06/01/2021 Assessment & Plan (06/02/2020 11:07 AM RECEPTION): Patient presents with congestion, purulent discharge, ear pain/pressure and PND most consistent with acute sinusitis. She reports she has been using sinus rinse, flonase and Muccinex OTC. COVID-19 rapid testing negative and no known COVID-19 exposure. She will continue quarantine until symptoms improving. She will begin antibiotic therapy and complete as prescribed. She will call with persistent or unresolved symptoms. snf (current) use of n on-steroidal anti-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s (nsaid) 11/18/2019 06/01/2021 Constipation due to opioid therapy 11/18/2019 01/24/2022 Edema 08/08/2019 11/18/2019 Assessment & Plan (08/08/2019 10:37 AM RECEPTION): Improved with lasix. We will repeat BMP to monitor renal function. She remains on aldactone which we will continue. She was encouraged to keep legs elevated while at rest and to avoid additional salt intake. If edema returns can prescribe lasix prn if renal function is stable Acute low back pain 08/08/2019 06/01/20 21 Assessment & Plan (08/08/2019 12:31 PM RECEPTION): Most likely secondary to degenerative disc disease. [...] management. Assessment & Plan (06/24/2019 12:50 PM RECEPTION): She has plans for rt hip replacement [...] Department Care Team Description 08/21/2024 2:45 PM RECEPTION - 08/21/2024 11:59 PM RECEPTION Hospital Encounter [facility] [address] [place] [address] Stage 3 chronic kidney disease, unspecified whether stage 3a or 3b CKD (HCC); Essential (primary) hypertension; Chronic systolic (congestive) heart failure (HCC); Hypertensive chronic kidney disease with stage 1 through stage 4 chronic kidney disease, or unspecified chronic kidney disease Discharge Disposition: Discharge to home or self care 08/15/2024 1:15 PM RECEPTION Office Visit [facility] Medicine [address] [place] [address] [address] [phone] Jadyn Hobson PA Osteoarthritis of right glenohumeral joint (Primary Dx); Right rotator cuff tear arthropathy 08/15/2024 Orders Only [facility] [address] [place] [address] [address] [place] [address] Jadyn Hobson PA 08/15/2024 Orders Only [facility] [address] [place] [address] Jadyn Hobson PA Osteoarthritis of right glenohumeral joint (Primary Dx); Right rotator cuff tear arthropathy; Complete tear of right rotator cuff, unspecified whether traumatic 08/13/2024 Telephone [facility] [address] [place] [address] Pepper Morgan MD 08/07/2024 Telephone [facility] [address] [facility] [address] [place] [address] Pepper Morgan MD Medication error 08/02/2024 MARIO IP Outreach [facility] Care Organization [address] [place] [address] Bruna Vidal MA 07/31/2024 1:10 PM RECEPTION - 07/31/2024 2:40 PM RECEPTION Surgery [facility] Cardiac Catheterization Lab [address] [place] [address] Stalin Arauz MD PERC JUDY CLOSE W/IMPLANT [id number] 07/31/2024 10:52 AM RECEPTION Anesthesia Event [facility] Cardiac Catheterization Lab [address] [place] [address] Maria Guadalupe Talavera MD Barnhart, Lynlee Jo, NP 07/31/2024 9:00 AM RECEPTION - 07/31/2024 11:59 PM RECEPTION Hospital Encounter [facility] Cardiac Catheterization Lab [address] [place] [address] Discharge Disposition: Discharge to home or self care 07/31/2024 7:44 AM RECEPTION - 08/01/2024 12:24 PM RECEPTION Hospital Encounter [address] [address] Stalin Arauz MD Paroxysmal atrial fibrillation (HCC) Discharge Disposition: Discharge to home or self care 07/26/2024 Orders Only [facility] Non-invasive Cardiac Diagnostic Testing [address] [place] [address] Stalin Arauz MD Paroxysmal atrial fibrillation (HCC) (Primary Dx) 07/24/2024 Telephone [facility] [address] [place] [phone] Pepper Morgan MD 07/15/2024 10:25 AM RECEPTION Lab [address] [address] Chronic heart failure with preserved ejection fraction (HCC) 07/15/2024 9:30 AM RECEPTION Office Visit [facility] Field Care Manager at [address] [place] [address] Maude Harris NP Chronic atrial fibrillation (HCC) (Primary Dx); Chronic heart failure with preserved ejection fraction (HCC); Benign hypertension; Peripheral arterial disease; Paroxysmal atrial fibrillation (HCC) 06/26/2024 Telephone [facility] [address] [place] [address] Pepper Morgan MD from Last 3 Months Immunizations Immunization Administration Dates Next Due COVID-19 mRNA (Appthority) 0.3 m L (30 mcg) vaccine (12 [...] The successful right hip replacement Dr. Mckenzie ND FLUORO GUIDED INJECTION HIP LEFT 01/28/2021 Left REPLACEMENT TOTAL KNEE Right TOTAL HIP ARTHROPLASTY 11/01/[address] Mckenzie, [facility]. IMPLANTABLE CARDIAC DEVICE 07/31/2024 N/A Procedure: PERC JUDY CLOSE W/IMPLANT [id number]; Surgeon: Stalin Arauz MD; Location: CARDIAC MRP CONTROLLER; Service: Cardiovascular; Laterality: N/A; Medical devices from this surgery are in the Medical Devices section. Medical History Medical History Date Comments Hx Other Medical 1992 strangulated he rnia Superficial basal cell carcinoma [...] Motion sickness Arrhythmia A-fibrillation CHF (congestive heart failure) (HCC) Cough DVT (deep venous thrombosis) ([facility]) 1976 upper left arm near elbow--- Allergic [...] drink = 0.6 oz pur e alcohol) [facility] Intrinsic-IDities Answer Date Recorded In the past 12 months has [employer], gas, oil, or water [facility] threatened to shut off services in your [...] attend chur ch or latter-day services? Never 04/11/2024 Do you belong to [...] any time in the past 12 m [facility], were you homeless or living [...] on file Legal Sex Female 4:33 AM RECEPTION Gender Identity Not on file Sexual Orientation Not on file Occupation Industry Job Start Date Job End Date retired Not on file Not on file Not on file Obstetrics History Last Filed Vital Signs Vital Sign Reading Time Taken Comments Blood Pressure 120/69 08/15/2024 1:26 PM RECEPTION Pulse 77 08/15/2024 1:26 PM RECEPTION Temperature 36.5 C (97.7 F) 08/01/2024 11:55 AM RECEPTION Respiratory Rate 20 08/01/2024 11:55 AM RECEPTION Oxygen Saturation 100% 08/01/2024 11:55 AM RECEPTION Inhaled Oxygen Concentration - - Weight 88 kg (194 lb) 08/15/2024 1:26 PM RECEPTION Height 152.4 cm (5') 08/15/2024 1:26 PM RECEPTION Body Mass Index 37.89 08/15/2024 1:26 PM RECEPTION Plan of Treatment Health Maintenance Due Date Last Done Comments Hepatitis B Screening 11/24/1953 Covid-19 Vaccine (2023-07 5 season) 2024 03/24/2023, 04/01/2022, 01/11/2022, Additional history exists Depression Screening 07/13/2024 07/13/2023, 07/13/2023, 12/28/2022, Additional history exists Well Visit 65+ 07/13/2024 07/13/2023, 05/20, 05/31/2021, Additional history exists Fall Risk Assessment 08/01/2025 08/01/2024, 07/13/2023, 06/08/2022, Additional history exists DTaP/Tdap/Td Vaccine (3 - Td or Tdap) 08/24/2031 08/23/2021, 05/18/2011 Pneumococcal vaccine 65+ Completed 016, 02/18/2015, 05/17/2002 Zoster Vaccine Completed 02/23/2021, 12/02/2020 Influenza Vaccine Completed 03/23/2024, , 03/24/2023, Additional history exists Goals Goal Patient Goal Type Associated Problems Recent Progress Patient-Stated? Author BH-Pain Behavioral Health Improving( 3:34 PM CDT) Domitila Gaston, XU Note: Patient will establish a comfort-function goal and identify the pain level that will allow the patient to perform desired activities and achieve an acceptable quality of life. Medical Devices Implanted Type Area Smokehouse Worker Device Identifier Shelf Expiration Date Model / Serial / Lot Depuy Orthopaed[employer] Inc [id number] Mesa 52mm Sector Hip Shell Acetabular Gription Sterile Latex Free - [id number] Implanted:Qty: 1 on 07/10/2019 by Puma Mckenzie MD at [facility] Right: Hip [employer]uy [employer] Inc 05/18/2029 [id number] / / [id number] Depuy [employer] Inc [id number] Mesa 52mm 36mm Hip Neutral Liner Acetabular Altrx Sterile Latex Free - [id number] Implanted:Qty: 1 on 07/10/2019 by Puma Mckenzie MD at [facility] Right: Hip [employer] Inc 04/18/2024 [id number] / / [id number] Dep[employer] Inc 1217-25-500 Mesa 6.5mm 25mm Acetabular Cancellous Screw Bone Sterile - [id number] Implanted:Qty: 1 on 07/10/2019 by Puma Mckenzie MD at [facility] Right: Hip [employer] Inc 12/16/2028 1217-25-500 / / [id number] Depuy [employer] Inc [id number] Articul/Ernesto 36mm Cementless Hip +1.5mm 12/14 Taper Head Femoral Latex Free - [id number] Implanted:Qty: 1 on 07/10/2019 by Puma Mckenzie MD at [facility] Right: Hip [employer] Inc 03/18/2024 [id number] / / [id number] Depuy [employer] Inc [id number] Actis Collared Hip 12/14 6 Standard Offset Stem Femoral - [id number] Implanted:Qty: 1 on 07/10/2019 by Puma Mckenzie MD at [facility] Right: Hip [employer] 06/18/2029 [id number] / / [id number] Depuy [employer] Inc Mesa 6.5mm 35mm Acetabular Cancellous Screw Bone Sterile 1217-35-500 - [id number] Implanted:Qty: 1 on 11/01/2021 by Puma Mckenzie MD at [facility] Left: Hip [employer] Inc 08/17/2031 1217-35-500 / / [id number] Dep[employer] Inc [id number] Mesa 52mm 36mm Hip Neutral Liner Acetabular Altrx Sterile Latex Free - [id number] Implanted:Qty: 1 on 11/01/2021 by Puma Mckenzie MD at [facility] Left: Hip [employer] Inc 08/16/2026 [id number] / / [id number] Depuy [employer] Inc Mesa 52mm Sector Hip Shell Acetabular Gription Sterile Latex Free [id number] - [id number] Implanted:Qty: 1 on 11/01/2021 by Puma Mckenzie MD at [facility] Left: Hip [employer] Inc [id number] 08/17/2031 [id number] / / [id number] Depuy Orth[employer]ed[employer] Inc [id number] Actis Collar Hip 7 High Offset Stem Femoral - [id number] Implanted:Qty: 1 on 11/01/2021 by Puma Mckenzie MD at [facility] Left: Hip [employer] Inc [id number] 08/17/2031 [id number] / / [id number] Depuy Orth[employer]ed[employer] Inc Articul/Ernesto 36mm Cementless Hip +1.5mm 12/14 Taper Head Femoral Latex Free [id number] - [id number] Implanted:Qty: 1 on 11/01/2021 by Puma Mckenzie MD at [facility] Left: Hip [employer] Inc 09/16/2026 [id number] / / [id number] Medtronic Inc Protege Gps Exprt 9mm .079in 60mm 80cm Otw Delivery System Self Huon04-96-31-40 - [id number] Implanted:Qty: 1 on 02/18/2022 by Stalin Arauz MD at [facility] Med[employer]onic Inc 10/22/2024 [id number] 0 -80 / / [id number] Ter[employer]o Medical Marshall Angio-Seal Evolution 6fr Vascular Closure [id number] - [id number] Implanted:Qty: 1 on 02/18/2022 by Stalin Arauz MD at [facility] [employer] Marshall 06/18/2022 [id number] / / [id number] Cook [employer] Inc Zilver Ptx 6mm 120mm 125cm Drug Elute Otw Delivery System [id number] - [id number] Implanted:Qty: 1 on 02/18/2022 by Stalin Arauz MD at [facility] [employer] Inc 10/21/2023 [id number] / / [id number] Cook Medical Inc Zilver Ptx 6mm 100mm 125cm Otw Preload Delivery System Self [id number] - [id number] Implanted:Qty: 1 on 02/18/2022 by Stalin Arauz MD at [facility] [employer] Medical Inc 11/09/2023 [id number] / / [id number] Medtronic Inc Everflex Entrust 8mm 60mm 120cm Self Expand Triaxial Low Profile - [id number] Implanted:Qty: 1 on 02/18/2022 by Stalin Arauz MD at [facility] [employer]onic Inc 07/26/2024 TFH11-05-62 0 -120 / / [id number] Ter[employer]o Medical Marshall Angio-Seal Evolution 6fr Vascular Closure [id number] - [id number] Implanted:Qty: 1 on 03/24/2022 [facility] 05/18/2022 [id number] / / [id number] West Vascular Occluder Cvasc Judy Flexible Braided Amplatzer Amulet 20mm Nitinol 6-Zvz3-702-020 - [id number] Implanted:Qty: 1 on 07/31/2024 by Stalin Arauz MD at [facility] Vascular 12/16/2028 9-ACP2-00 7-0 20 / / [id number] Procedures Procedure Name Priority Date/Time Associated Diagnosis Comments MT ARTHROCENTESIS ASPIR&/INJ MAJOR JT/BURSA W/O US Routine 08/15/2024 1:15 PM RECEPTION 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 TRANSTHORACIC ECHO (TTE) LIMITED/FOLLOW UP W LTD DOPPLER/CF WO CONTRAST Routine 08/01/2024 8:20 AM RECEPTION EGFR Routine 08/01/2024 7:55 AM RECEPTION DIFFERENTIAL AUTO Routine 08/01/2024 7:5 5 AM RECEPTION CBC WITH AUTO DIFFERENTIAL Routine 08/01/2024 7:55 AM RECEPTION MAGNESIUM Routine 08/01/2024 7:55 AM RECEPTION BASIC METABOLIC PANEL Routine 08/01/2024 7:55 AM RECEPTION ECG 12-LEAD Routine 08/01/2024 7:25 AM RECEPTION APTT Routine 07/31/2024 6:15 PM RECEPTION PROTIME-INR Routine 07/31/2024 6:15 PM RECEPTION PERC JUDY CLOSURE W/IMPLANT (WATCHMAN) [id number] Routine 07/31/2024 11:48 AM RECEPTION Paroxysmal atrial fibrillation (HCC) TRANSESOPHAGEAL ECHO (AZEEM) W DOPPLER/CF WO CONTRAST Routine 07/31/2024 11:45 AM RECEPTION POCT ACTIVATED CLOTTING TIME, HIGH RANGE Routine 07/31/2024 11:30 AM RECEPTION MT AN ELECTIVE ENDOTRACHEAL AIRWAY Routine 07/31/2024 11:15 AM RECEPTION ECG 12-LEAD Routine 07/31/2024 9:15 AM RECEPTION PREPARE RBC STAT 07/31/2024 8:59 AM RECEPTION EGFR Routine 07/31/2024 8:41 AM RECEPTION DIFFERENTIAL AUTO Routine 07/31/2024 8:4 1 AM RECEPTION TYPE AND SCREEN Timed 07/31/2024 8:41 AM RECEPTION COMPREHENSIVE METABOLIC PANEL Routine 07/31/2024 8:41 AM RECEPTION CBC WITH AUTO DIFFERENTIAL Routine 07/31/2024 8:41 AM RECEPTION EGFR Routine 07/15/2024 10:29 AM RECEPTION Chronic heart failure with preserved ejection fraction (HCC) BASIC METABOLIC PANEL Routine 07/15/2024 10:29 AM RECEPTION Chronic heart failure with preserved ejection fraction (HCC) PRO B-TYPE NATRIURETIC PEPTIDE Routine 07/15/2024 10:29 AM RECEPTION Chronic heart failure with preserved ejection fraction (HCC) from Last 3 Months Results * MT ARTHROCENTESIS ASPIR&/INJ MAJOR JT/BURSA W/O US (08/15/2024 1:15 PM RECEPTION) Narrative Jadyn Hobson PA - 08/15/2024 1:15 PM RECEPTION Jadyn Hobson PA 08/15/2024 2:12 PM Large [...] LTD DOPPLER/CF WO CONTRAST (08/01/2024 8:20 AM RECEPTION) Anatomical Region Laterality Modality Ultrasound 08/01/2024 6:46 AM RECEPTION Narrative 08/01/2024 9:39 [place] [address] Limited Echocardiogram Report Patient Name: TESS BENEDICT I : 1935 Study Date: 08/01/2024 6:46:22 AM Gender: F Tech: Location: [id number] Ref Provider: STALIN ARAUZ Height(Cm): 152 BSA: [...] effusion. Electronically Signed By: Latanya Fitzgerald DO, FACC, FASE, FASNC 08/01/2024 9:38:26 AM RECEPTION Procedure Note Latanya Fitzgerald DO - 08/01/2024 [place] [address] Limited Echocardiogram Report Patient Name: TESS BENEDICT I : 1935 Study Date: 08/01/2024 6:46:22 AM Gender: F Tech: Location: [id number] Ref Provider: STALIN ARAUZ Height(Cm): 152 BSA: [...] FRANCISCO JAVIER HUERTA FASNC 08/01/2024 9:38:26 AM RECEPTION us Stalin Arauz MD CV ECHO PROCEDURES Final Result * (ABNORMAL) eGFR (08/01/2024 7:55 AM RECEPTION) eGFR 43(L) >=60 mL/min/1. 73 m2 Comment: [...] last reviewed 2021. Blood 08/01/2024 7:55 AM RECEPTION 08/01/2024 8:13 AM RECEPTION us Stalin Arauz MD LAB BLOOD ORDERABLES Final Resu lt [facility] [address] Department [place] [address] * (ABNORMAL) Differential, auto (08/01/2024 7:55 AM RECEPTION) Neutrophil abs 9.9(H) 1.5 - 6.5 K/cumm Imm gran abs 0.1 0.0 - 0.1 K/cumm [facility] Lymphocyte abs 0.6(L) 0.8 - 3.3 K/cumm [facility] Monocyte abs 0.8 0.2 - 0.8 K/cumm [facility] Eosinophil abs 0.0 0.0 - 0.5 K/cumm [facility] Basophil abs 0.0 0.0 - 0.1 K/cumm [facility] Neutrophil pct 86.7 % [facility] Comment: Interpretive Data Percent cell count reference ranges are not reported, since discordance with absolute values may lead to misinterpretation of CBC data. Current Interpretive Data was last revised on 2017. Imm gran pct 0.9 % [facility] Comment: Interpretive Data Percent cell count reference ranges are not reported, since discordance with absolute values may lead to misinterpretation of CBC data. Current Interpretive Data was last revised on 2017. Lymphocyte pct 5.2 % [facility] Comment: Interpretive Data Percent cell count reference ranges are not reported, since discordance with absolute values may lead to misinterpretation of CBC data. Current Interpretive Data was last revised on 2017. Monocyte pct 6.8 % [facility] Comment: Interpretive Data Percent cell count reference ranges are not reported, since discordance with absolute values may lead to misinterpretation of CBC data. Current Interpretive Data was last revised on 2017. Eosinophil pct 0.2 % [facility] Comment: Interpretive Data Percent cell count reference ranges are not reported, since discordance with absolute values may lead to misinterpretation of CBC data. Current Interpretive Data was last revised on 2017. Basophil pct 0.2 % [facility] Comment: Interpretive Data Percent cell count reference ranges are not reported, since discordance with absolute values may lead to misinterpretation of CBC data. Current Interpretive Data was last revised on 2017. Blood 08/01/2024 7:55 AM RECEPTION 08/01/2024 8:13 AM RECEPTION Stalin Arauz MD LAB BLOOD ORDERABLES Final Resu lt Performing Organization Address [facility]/ZIP Co de Phone Number [facility]IDI VAU[place]AN [address] [employer], [place] [id number] * (ABNORMAL) CBC with auto differential (08/01/2024 7:55 AM RECEPTION) WBC 11.4(H) 3.8 - 9.9 K/cumm Hgb 12.2 11.9 - 15.5 g/dL [facility] CH Hct 41.7 35.6 - 45.5 % [facility] CH Plt 276 150 - 400 K/cumm [facility] CH MPV 9.4 9.1 - 12.3 fL [facility] RBC 4.78 3.90 - 5.20 M/cumm [facility] CH MCV 87.2 81.3 - 96.4 fL [facility] CH MCH 25.5(L) 27.1 - 33.3 pg [facility] CH MCHC 29.3(L) 32.3 - 35.7 g/dL [facility] CH RDW CV 17.1(H) 11.1 - 14.9 % [facility] CH RDW SD 53.6(H) 35.7 - 48.1 fL [facility] NRBC abs 0.00 0.00 - 0.01 K/cumm [facility] CH Blood 08/01/2024 7:55 AM RECEPTION 08/01/2024 8:13 AM RECEPTION Stalin Arauz MD LAB BLOOD ORDERABLES Final Resu lt Performing Organization Address [facility]/ZIP Co de Phone Number [facility]IDI [facility]AN [address] [place] [address] * Magnesium (08/01/2024 7:55 AM RECEPTION) Magnesium 2.3 1.4 - 2.5 mg/dL Blood 08/01/2024 7:55 AM RECEPTION 08/01/2024 8:13 AM RECEPTION Stalin Arauz MD LAB BLOOD ORDERABLES Final Resu lt [facility] [address] Department [place] [address] * (ABNORMAL) Basic metabolic panel (08/01/2024 7:55 AM RECEPTION) Pathologist [facility] Sodium 137 135 - 145 mmol/L Potassium, pl 4.1 3.3 - 4.9 mmol/L [facility] Chloride 99 97 - 110 mmol/L [facility] CO2 24 22 - 32 mmol/L [facility] Anion gap 14 2 - 15 mmol/L [facility] BUN 43(H) 6 - 25 mg/dL [facility] Creatinine 1.22(H) 0.60 - 1.10 mg/dL [facility] Glucose 100 70 - 199 mg/dL [facility] Comment: Interpretive Data Fasting glucose >/= 126 [...] Calcium 9.6 8.5 - 10.3 mg/dL [facility] Blood 08/01/2024 7:55 AM RECEPTION 08/01/2024 8:13 AM RECEPTION Stalin Arauz MD LAB BLOOD ORDERABLES Final Resu lt Performing Organization Address City/[facility]/ZIP Co de Phone Number [facility] [address] Department [place] [address] * ECG 12 lead (08/01/2024 7:25 AM RECEPTION) 08/01/2024 7:25 AM RECEPTION Narrative [facility] - 08/01/2024 10:33 AM RECEPTION Vent Rate: 79 bpm RR Interval: 757 msec MT Interval: 0 msec QRS Duration: 73 msec QT Interval: 378 msec QTC Interval: 412 msec P-R-T [place]: 0 - 74 - 17 degrees IMPRESSION: ATRIAL FIBRILLATION WITH CONTROLLED VENTRICULAR RESPONSE Electronically Signed By: Collin Rich MD, [facility] Stalin Arauz MD ECG ORDERABLES Final Result Performing Organization Address City/[facility]/ZIP Co de Phone Number [facility] * aPTT (07/31/2024 6:15 PM RECEPTION) aPTT 32 28 - 38 sec Comment: Interpretive Data Heparin therapeutic range: 66.0 - 100.0 seconds. Range based on correlation with therapeutic heparin activity range of 0.3 - 0.7 Units/mL. Current interpretive data was last revised on 2023. Blood 07/31/2024 6:15 PM RECEPTION 07/31/2024 6:19 PM RECEPTION Stalin Arauz MD LAB BLOOD ORDERABLES Final Resu lt Performing Organization Address City/[facility]/ZIP Co de Phone Number CHIDI [address] Department of [place] [address] * Protime-INR (07/31/2024 6:15 PM RECEPTION) PT 12.2 9.7 - 13.0 sec INR 1.13 0.90 - 1.20 CHIDI VAUGHAN Comment: Interpretive data Oral anticoagulant therapeutic ranges: Venous thromboembolism prophylaxis or treatment: 2.0-3.0 CARDIOLOGY Standard range: 2.0-3.0 High-intensity range: 2.5-3.5 Refer to indication-specific guidelines for appropriate target ranges for prosthetic heart valve replacement. Current interpretive data was last revised on 2019. Blood 07/31/2024 6:15 PM RECEPTION 07/31/2024 6:19 PM RECEPTION us Stalin Arauz MD LAB [place]LOOD [place]LES [place] [address] [address] Department [place] [address] * PERC JUDY CLOSURE W/IMPLANT (WATCHMAN) [id number] (07/31/2024 11:48 AM RECEPTION) Anatomical Region Laterality Modality X-Ray Angiograph y Narrative 07/31/2024 12:29 PM RECEPTION HISTORY 88y.o. old female with a history [...] fail. The patient was brought to the hybrid OR in a fasting state. A time-out was performed. The patient was prepped and draped in the usual sterile fashion. General anesthesia was administered. The patient received endotracheal intubation. OPERATORS: Stalin arauz MD, VASCULAR ACCESS The right femoral vein was accessed using the modified Seldinger technique. An 8-Malaysian sheath was inserted. TRANSSEPTAL PUNCTURE The patient was kept therapeutically anticoagulated throughout the case. Transseptal puncture was made to gain access to the left atrium using a [employer] needle system. Transseptal catheterization was performed and guided by AZEEM see imaging note . The transseptal puncture was performed mid and inferior position. The wire was advanced through the left atrium and a double curved delivery sheath was placed over the wire. An Amplatzer delivery catheter TorqVue was advanced into the left atrial appendage. A 5-Malaysian pigtail was used to gain access into [...] W DOPPLER/CF WO CONTRAST (07/31/2024 11:45 AM RECEPTION) Anatomical Region Laterality Modality Ultrasound Narrative 07/31/2024 12:35 PM RECEPTION Table formatting from the original result was not included. Result Text PROCEDURE Transesophageal ECHO for left atrial appendage closure INDICATION 88-year-old with paroxysmal Atrial fibrillation and [id number] score 6 , HAS BLED 4 with [...] Clotting Time, High Range (07/31/2024 11:30 AM RECEPTION) ACT 280(H) 87 - 138 sec Blood 07/31/2024 11:3 0 AM RECEPTION 07/31/2024 11:30 AM RECEPTION Stalin Arauz MD LAB BLOOD ORDERABLES Final Resu lt [facility]I [address] [facility] [place] [address] * MT AN ELECTIVE ENDOTRACHEAL AIRWAY (07/31/2024 11:15 AM RECEPTION) Narrative Rosita Sharma AA - 07/31/2024 11:15 AM RECEPTION Rosita Sharma AA 07/31/2024 11:15 AM Airway [...] with: silk tape Number of attempts: 1 Maria Guadalupe Talavera MD ANESTHESIA ORDERABLES Final Resu lt * ECG 12 lead (07/31/2024 9:15 AM RECEPTION) 07/31/2024 9:15 AM RECEPTION Narrative [facility] - 07/31/2024 1:18 PM RECEPTION Vent Rate: 80 bpm RR Interval: 743 msec MT Interval: 0 msec QRS Duration: 78 msec QT Interval: 389 msec QTC Interval: 425 msec P-R-T [place]: 0 - 91 - 23 degrees IMPRESSION: ATRIAL FIBRILLATION BORDERLINE RIGHT AXIS DEVIATION ABNORMAL RHYTHM ECG Electronically Signed By: Dr. Gardenia Harper [facility] Stalin Arauz MD ECG ORDERABLES Final Result [facility] * Prepare RBC: 2 Units (07/31/2024 8:59 AM RECEPTION) Pathologist [facility] Product code [id number] Unit Number [id number] 1-N CERNER CH Product Blood Type APOS CERNER CH Dispense Status RETURNED CERNER CH Product code [id number] CERNER CH Unit Number [id number] 7-Q CERNER CH Product Blood Type APOS CERNER CH Dispense Status RETURNED CERNER CH Blood 07/31/2024 8:59 AM RECEPTION Narrative [facility] - 08/04/2024 12:07 AM RECEPTION Specify Procedure:->LAAO Are special requirements needed? (All products are leukoreduced and CMV- safe)- >No Date required:-[id number] LRRBC # of [id number] Reasons:-Hold for procedure (specify procedure)} Stalin Arauz MD BLOOD BANK PRODUCT ORDERABLES F inal Result [facility] [address] Department of Laboratories [place], [place] [id number] * (ABNORMAL) eGFR (07/31/2024 8:41 AM RECEPTION) Pathologist [facility] eGFR 40(L) >=60 mL/min/1. 73 m2 Comment: [...] last reviewed 2021. Blood 07/31/2024 8:41 AM RECEPTION 07/31/2024 8:44 AM RECEPTION us Stalin Arauz MD LAB BLOOD ORDERABLES Final Resu lt [facility] [address] Department [place] [address] * (ABNORMAL) Differential, auto (07/31/2024 8:41 AM RECEPTION) Neutrophil abs 8.2(H) 1.5 - 6.5 K/cumm Imm gran abs 0.1 0.0 - 0.1 K/cumm [facility] Lymphocyte abs 0.6(L) 0.8 - 3.3 K/cumm [facility] Monocyte abs 0.6 0.2 - 0.8 K/cumm [facility] Eosinophil abs 0.3 0.0 - 0.5 K/cumm [facility] Basophil abs 0.1 0.0 - 0.1 K/cumm [facility] Neutrophil pct 84.2 % [facility] Comment: Interpretive Data Percent cell count reference ranges are not reported, since discordance with absolute values may lead to misinterpretation of CBC data. Current Interpretive Data was last revised on 2017. Imm gran pct 1.0 % [facility] Comment: Interpretive Data Percent cell count reference ranges are not reported, since discordance with absolute values may lead to misinterpretation of CBC data. Current Interpretive Data was last revised on 2017. Lymphocyte pct 5.8 % [facility] Comment: Interpretive Data Percent cell count reference ranges are not reported, since discordance with absolute values may lead to misinterpretation of CBC data. Current Interpretive Data was last revised on 2017. Monocyte pct 5.7 % [facility] Comment: Interpretive Data Percent cell count reference ranges are not reported, since discordance with absolute values may lead to misinterpretation of CBC data. Current Interpretive Data was last revised on 2017. Eosinophil pct 2.7 % [facility] Comment: Interpretive Data Percent cell count reference ranges are not reported, since discordance with absolute values may lead to misinterpretation of CBC data. Current Interpretive Data was last revised on 2017. Basophil pct 0.6 % [facility] Comment: Interpretive Data Percent cell count reference ranges are not reported, since discordance with absolute values may lead to misinterpretation of CBC data. Current Interpretive Data was last revised on 2017. Blood 07/31/2024 8:41 AM RECEPTION 07/31/2024 8:45 AM RECEPTION us Stalin Arauz MD LAB BLOOD ORDERABLES Final Resu lt [facility] [address] Department [place] [address] * (ABNORMAL) CBC with auto differential (07/31/2024 8:41 AM RECEPTION) WBC 9.8 3.8 - 9.9 K/cumm Hgb 13.5 11.9 - 15.5 g/dL [facility] Hct 45.7(H) 35.6 - 45.5 % [facility] Plt 321 150 - 400 K/cumm [facility] MPV 9.1 9.1 - 12.3 fL [facility] RBC 5.33(H) 3.90 - 5.20 M/cumm [facility] MCV 85.7 81.3 - 96.4 fL [facility] MCH 25.3(L) 27.1 - 33.3 pg [facility] MCHC 29.5(L) 32.3 - 35.7 g/dL [facility] RDW CV 17.2(H) 11.1 - 14.9 % [facility] RDW SD 53.1(H) 35.7 - 48.1 fL [facility] NRBC abs 0.00 0.00 - 0.01 K/cumm [facility] Blood 07/31/2024 8:41 AM RECEPTION 07/31/2024 8:45 AM RECEPTION Stalin Arauz MD LAB BLOOD ORDERABLES Final Resu lt Performing Organization Address [facility] Co de Phone Number CHIDI [address] Department of [employer] [place], [place] [id number] * Type and screen (07/31/2024 8:41 AM RECEPTION) [facility] ABO Rh A Positive Ever, indirect Negative CERNER CH Blood 07/31/2024 8:41 AM RECEPTION 07/31/2024 8:52 AM RECEPTION Narrative [facility] - 07/31/2024 10:08 AM RECEPTION Has the patient had Daratumumab or Isatuximab in the past 6 months?->Unknown Stalin Arauz MD LAB BLOOD BANK TEST ORDERABLES Final Result Performing Organization Address [facility] de Phone Number CHIDI VAUGHAN [address] [place] [address] * (ABNORMAL) Comprehensive metabolic panel (07/31/2024 8:41 AM RECEPTION) Pathologist [facility] Sodium 137 135 - 145 mmol/L Potassium, pl 3.7 3.3 - 4.9 mmol/L CERNER Chloride 94(L) 97 - 110 mmol/L [facility] CO2 28 22 - 32 mmol/L [facility] Anion gap 15 2 - 15 mmol/L [facility] BUN 54(H) 6 - 25 mg/dL [facility] Creatinine 1.30(H) 0.60 - 1.10 mg/dL [facility] Glucose 91 70 - 199 mg/dL [facility] Comment: Interpretive Data Fasting glucose >/= 126 [...] Units/L [facility] CH Blood 07/31/2024 8:41 AM RECEPTION 07/31/2024 8:44 AM RECEPTION us Stalin Arauz MD LAB BLOOD ORDERABLES Final Resu lt [place] [address] Department [place] [address] * (ABNORMAL) eGFR (07/15/2024 10:29 AM RECEPTION) eGFR 32(L) >=60 mL/min/1. 73 m2 Comment: [...] reviewed 2021. Blood 07/15/2024 10:2 9 AM RECEPTION 07/15/2024 11:05 AM RECEPTION us Maude Harris NP LAB BLOOD ORDERABLES Fi nal Result [facility]I [facility] ([place]) 1 [facility] Department [place] [address] * (ABNORMAL) Pro B-type natriuretic peptide (07/15/2024 10:29 AM RECEPTION) NT-proBNP 4,320(H) <=450 pg/mL Comment: Interpretive Comments: [...] Date: 2018. Blood 07/15/2024 10:2 9 AM RECEPTION 07/15/2024 11:05 AM RECEPTION Maude Harris NP LAB BLOOD ORDERABLES Fi nal Result [facility] ([place]) 1 [facility] Department [place] [address] * (ABNORMAL) Basic metabolic panel (07/15/2024 10:29 AM RECEPTION) Sodium 134(L) 135 - 145 mmol/L Potassium, pl 4.1 3.3 - 4.9 mmol/L [facility] ([place]) Chloride 90(L) 97 - 110 mmol/L [facility] ([place]) CO2 33(H) 22 - 32 mmol/L [facility] ([place]) Anion gap 11 2 - 15 mmol/L [facility] ([place]) BUN 67(H) 6 - 25 [...] 2022. Calcium 10.0 8.5 - 10.3 mg/dL [facility] ([place]) Blood 07/15/2024 10:2 9 AM RECEPTION 07/15/2024 11:05 AM RECEPTION Maude Harris NP LAB BLOOD ORDERABLES [facility] Result [facility] [place] 1 [facility] Department [place] [address] from Last 3 Months Insurance MEDICARE [facility]NA [facility] MEDICARE MEDICARE [facility] MEDICARE [facility] [place] [address] MEDICARE BLUE CROSS MEDICARE SUPPLEMENT Advance Directives For more information, please contact: [phone] Documents on File Type Date Recorded Patient Radial Drill Press Set Up Operator Expl anation ADVANCE DIRECTIVE 05/14/2019 1:34 PM [...] 7:42 PM 12/30/2022 3:56 PM Care Teams Seismic Plotter Relationship Specialty Start Date End Date Pepper Morgan MD PCP - General 09/16/16 Hank Garibay MD [address] [place] [address] DR WARNER Sheridan [facility] [address] [place] [address] Surgeon Orthopedic Surgery 03/27/17 Jacky Murry MD [address] [place] [address] DR WARNER Sheridan [facility] [address] [place] [address] Ophthalmology 03/27/17 Puma Mckenzie MD [address] [place] [address] DR [address] [place] [address] Surgeon Orthopedic Surgery 07/11/19 Neha Jackson PT Physical Therapist Physical Therapy 12/01/21 Stalin Arauz MD Consulting Physician Cardiology 12/08/22 Tiffany Rojas PA [address] [place] [address] [address] [place] [address] Gastroenterology 12/30/22 Klaus Deshpande MD [address] [facility] [place] [address] Consulting Physician Neurology 06/13/23
--- OUTSIDE RECORDS SUMMARY | 2024-08-24 16:49 | XMS_ITS | Encounter Summary ---
Author Organization [facility] Address [address] [place] [address] Phone Care Team Providers Care Veterinary Pathologist Name Role Phone Pepper Morgan MD Primary Care Provider + [phone] Hank Garibay MD Unavailable [phone] Jacky Murry MD Unavailable [phone] Puma Mckenzie MD Unavailable [phone] Neha Jackson PT Unavailable Unavailable Stalin Arauz MD Unavailable [phone] Tiffany Rojas Unavailable [phone] Klaus Deshpande MD Unavailable [phone] Andrea Waddell RN Unavailable [phone] Encounter Details Date Type Department Care Team (Late st Contact Info) Description 06/02/2020 Orders Only [facility] [address] [place] [address] Scanning, Provider Social History Tobacco [...] on file Legal Sex 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 Gender Identity Not on file Sexual [...] COVID: Suspected 06/01/2020 06/01/2020 06/15/2020 3:07 AM OPENING MACHINE CLEANER COVID: Suspected 04/21/2021 04/21/2021 04/21/2021 4:25 PM CDT COVID: Suspected 10/14/2021 10/14/2021 10/14/2021 1:53 PM CDT COVID: Suspected 02/16/2023 02/16/2023 02/16/2023 8:33 AM CDT COVID: Suspected 06/14/2023 06/14/2023 06/14/2023 6:44 PM OPENING MACHINE CLEANER COVID: Suspected 06/24/2023 06/24/2023 06/24/2023 12:46 PM OPENING MACHINE CLEANER documented as of this encounter Care Teams Veterinary Pathologist Relationship Specialty Start Date End Date Pepper Morgan MD PCP - General 09/16/16 Hank Garibay MD [address] [place] [address] [address] WARN[address] Sheridan [facility] [address] [place] [address] Surgeon Orthopedic Surgery 03/27/17 Jacky Murry MD [address] [place] [address] [address] WARN[address] Sher[address] [facility] [address] [place] [address] Ophthalmology 03/27/17 Puma Mckenzie MD [address] [facility] [address] [place] [address] Surgeon Orthopedic Surgery 07/11/19 Neha Jackson, PT Physical Therapist Physical Therapy 12/01/21 Stalin Arauz MD Consulting Physician Cardiology 12/08/22 Tiffany Rojas PA [address] [facility] [address] [place] [address] Gastroenterology 12/30/22 Klaus Deshpande MD [address] [facility] [address] [place] [address] Consulting Physician Neurology 06/13/23 Andrea Waddell, XU [address] [place] [address] [address] [place] [address] Lab Systems Analyst 01/11/24 01/14/24 documented as of this encounter
--- OUTSIDE RECORDS SUMMARY | 2024-08-24 16:50 | XMS_ITS | Continuity of Care Document ---
Author Organization [facility] Address [address] [place] [address] Phone Care Team Providers Care Fruit Cutter Name Role Phone Kevonhawa RESENDEZ, Tamie Unavailable [...] Diagnoses Date Provider Providers Copied on Encounter [facility], [address], [place], [place], [address], [place] tel:[phone] SEC Antoine DIXON Professional Complete Exam (chief complaint) Presence of intraocular lensVitreous degeneration, left eyeDrusen (degenerative ) of macula, bilateralEpir etinal membrane (ERM) of right eyeKeratoconj unctivitis sicca, not specified as Sjogren's, bilateral 4 Kevon OD Tamie. [address], [place], [place], [address], [place]. tel:[phone] Referring Provider: Tamie Porter, [facility] [address], [place], [address] . tel:[phone] [facility], [address] [place], [place] [address] [address], [place], [place], [address], [place] tel:[phone] SEC [place] Professional YAG PO (chief complaint) Post op visit 4 Ryann OD Concetta. [address] [place], [place] [address], [address], [place], [place], [address], [place]. tel:[phone] Referring Provider: Tamie Porter, [address] [place], [place] [address] [address], [place], [address] . tel:[phone] Office/outpa tient Visit, [facility], [address] [place], [place] [address] [address], [place], [place], [address], [place] tel:[phone] SEC [place] Professional YAG capsulotomy evaluation (chief complaint) Other secondary cataract, left eye Sep-3 4 [place]. [address] [place], [place] [address], [address], [place], [place], [address], [place]. tel:[phone] Referring Provider: Tamie Porter, [address] [place] [address] [address], [place], [address] . tel:[phone] Office/outpa tient Visit, [facility], [address] [place], [place] [address] [address], [place], [place], [address], [place] tel:[phone] SEC [place] Professional Follow up visit (chief complaint) Other secondary cataract, left eyeBilateral artificial lens implant Sep- 4 Kevon OD Tamie. [address] [place], [place] [address] [address] [address], [address], [place], [place], [address], [place]. tel:[phone] Referring Provider: Tamie Porter, [address], [place], [address] . tel:[phone] [facility], [address], [place], [place], [address], [place] tel:[phone] [place] Professional Complete Exam (chief complaint) Macular hole of right eyeDry eye syndrome of right lacrimal glandDry eye syndrome of left lacrimal glandVitreous degeneration, left eye Jan- 3 Kevon OD Tamie. [address] [place] [address] [address], [address], [place], [place], [address], [place]. tel:[phone] Referring Provider: Tamie Lund OD [place], [address], [place], [address] . tel:[phone] [facility], [address] [place] [address] [address], [place], [place], [address], [place] tel:[phone] SEC [place] Professional Complete Exam (chief complaint) Vitreous degeneration, left eyePresence of intraocular lensOther secondary cataract, left eyeDrusen (degenerative ) of macula, bilateral Jan- 2 Jeanmarie Rico. [address], [place], [place], [address], [place]. tel:[phone] Referring Provider: Jacky Escobedo, [address], [place], [address] . tel:[phone] Office/outpa tient Visit, [facility], [address], [place], [place], [address], [place] tel:[phone] SEC [place] Professional hair like image (chief complaint) Vitreous degeneration, left eyePresence of intraocular lensOther secondary cataract, left eye Aug- 2 Jeanmarie Rico. [address] [facility], [place], [place], [address], [place]. tel:[phone] Referring Provider: Jacky Escobedo, [address], [place], [address] . tel:[phone] [facility], [address], [place], [place], [address], [place] tel:[phone] SEC [place] Professional Complete Exam (chief complaint) Presence of intraocular lensMacular hole of right eyeOther secondary cataract, left eye 9 Jeanmarie Penason. [address], [place], [place], [address], [place]. tel:[phone] Referring Provider: Jacky Escobedo, [address] [facility] [address], [place], [address] . tel:[phone] [facility], [address], [place], [place], [address], [place] tel:[phone] SEC [place] Professional No Information 9 Jeanmarie Rico. [address], [place], [place], [address], [place]. tel:[phone] [facility], [address], [place], [place], [address], [place] tel:[phone] [place] Professional Complete Exam (chief complaint) No Information 7 Jeanmarie Rico. [address], [place], [place], [address], [place]. tel:[phone] Referring Provider: Michael Liz, [address], [place], [address] . tel:[phone] [facility], [address], [place], [place], [address], [place] tel:[phone] SEC [place] Professional Complete Exam (chief complaint) No Information 6 Jazzmine Rodriguez. [address], [place], [place], [address], . tel:[phone] Referring Provider: Michael Liz, [address] [facility] [address], [place], [address] . tel:[phone] [facility], [address], [place], [place], [address], [phone] SEC [place] Professional Blurry vision (chief complaint) No Information 5 Conrado Blackburn. [address] [facility], [address], [place], [address], [place]. tel:[phone] Referring Provider: Michael Liz, [address] [facility] [address], [place], [address] . tel:[phone] [facility], [address], [place], [place], [address], [place] [phone] SEC Antoine DESTINY Professional No Information 5 Jazzmine Rodriguez. [address] [facility], [facility] [place], [place], [address], . tel:[phone] Family History Family Member Type Diagnosis Age At Onset Mother Problem (finding) degenerative disorder o f macula Father Problem (finding) glaucoma Payers Payer name Insurance type Covered libertarian ID Authoriza tion(s) [place] [id number] [facility] Out Of State [id number] Social History Type Description Quantity Date Captured [...]
[2024-08-24 17:03] VITALS: BP 114/52; PULSE 80; RESP 20; TEMP 36.3; O2SAT 100
--- NOTE | 2024-08-24 18:01 | ED_ITS ---
HPI - General Adult General Chief complaint: Extremity Injury, Upper Stated complaint: Left arm injury - fell Source: patient and family Mode of arrival: ambulatory Limitations: no limitations History of Present Illness HPI narrative: Patient presents for evaluation of a skin tear to left forearm. She indicates she got up from her couch quickly just prior to arrival and lost her balance, falling back and hitting her left arm against a table. She landed on her buttocks on the ground. She did not pass her head. No loss of consciousness. She was previously anticoagulated but medication was discontinued about 3 weeks ago. She has some chronic bruising to the left forearm and right lower leg. She denies considerable pain in the left upper extremity. She does have decreased sensation in that arm and a chronic basis. Denies loss of range of motion. She indicates in the past she has placed Steri-Strips at home. She states for this particular injury she did not think she had enough steri-strips so came here for further evaluation. Last tetanus was last year. Related Data Home Medications ?Medication ?Instructions ?Recorded ?Confirmed ?Last Taken ?Type cholecalciferol (vitamin D3) 50 50 mcg PO DAILY 12/25/20 02/03/23 Unknown History mcg (2,000 unit) capsule (Vitamin D3) felodipine 5 mg tablet,extended 5 mg PO DAILY 12/25/20 02/03/23 Unknown History release 24 hr pramipexole 0.125 mg tablet 0.125 mg PO BID 12/25/20 02/03/23 Unknown History propranolol 20 mg tablet 20 mg PO Q12H 12/25/20 02/03/23 Unknown History spironolactone 25 mg tablet 25 mg PO DAILY 12/25/20 02/03/23 Unknown History furosemide 40 mg tablet 40 mg DIRECTED 10/12/21 02/03/23 Unknown History clonazepam 0.5 mg tablet 0.25 mg PO HS 02/03/23 02/03/23 Unknown History allopurinol 100 mg tablet mg 06/10/24 Unknown History atorvastatin 20 mg tablet mg 06/10/24 Unknown History fluticasone 100 mcg-salmeterol 50 inhalation 06/10/24 Unknown History mcg/dose blistr powdr for inhalation (Wixela Inhub) furosemide 80 mg tablet mg 06/10/24 Unknown History pantoprazole 40 mg tablet,delayed mg PO 12/23/24 Unknown History release dapagliflozin propanediol 10 mg mg 08/24/24 Unknown History tablet (Farxiga) gabapentin 100 mg capsule mg 08/24/24 Unknown History Allergies Allergy/AdvReac Type Severity Reaction Status Date / Time Sulfa (Sulfonamide Allergy Severe Anaphylaxis Verified 08/24/24 16:58 Antibiotics) lisinopril Allergy Intermediate Swelling Verified 08/24/24 16:58 trazodone Allergy Intermediate Swelling Verified 08/24/24 16:58 of Lip/Tongue/Throat amlodipine Allergy Unknown Unknown Verified 08/24/24 16:58 celecoxib Allergy Unknown Swelling Verified 08/24/24 16:58 scopolamine AdvReac Intermediate Confusion Verified 08/24/24 16:58 Review of Systems Review of Systems: CONSTITUTIONAL: Denies fever, chills, or sweats. EYES: Denies visual changes, redness, or discharge. ENT: Denies rhinorrhea, congestion, sore throat, or otalgia. CARDIOVASCULAR: Denies chest pain, palpitations, or edema. RESPIRATORY: Denies cough or dyspnea. GASTROINTESTINAL: Denies abdominal pain, nausea, vomiting, or diarrhea. GENITOURINARY: Denies dysuria or hematuria. SKIN: Reports chronic bruising in the left forearm and right lower leg. Reports skin tear to left forearm MUSCULOSKELETAL: Reports pain in left forearm. NEUROLOGIC: Reports chronic at decreased sensation in left upper extremity. Denies headache, dizziness, or weakness. PSYCHIATRIC: Denies anxiety or depression. [facility] Past Medical History Medical History Kidney failure Congestive heart failure Atrial fibrillation Melanoma removed left arm Restless leg syndrome Spinal stenosis Parkinson disease GERD (gastroesophageal reflux disease) HTN (hypertension) Surgical History Surgical History History of right hip replacement History of bilateral knee replacement Family History Family History Other Heart disease Hypertension Social History Social History Smoking status: Former smoker Alcohol intake: current Alcohol use details: rare Substance use type: does not use Living arrangements: [facility] Gender identity (if verbalized by the patient): Female Exam Narrative: GENERAL: Well-appearing, well-nourished, and in no acute distress. HEAD: Normocephalic, atraumatic. EYES: PERRLA and EOMI. ENT: Nares clear, no rhinorrhea or epistaxis. Mucous membranes moist. Oropharynx without tonsillar hypertrophy exudate or other lesions. Bilateral TMs pearly crane nonbulging NECK: Supple. No adenopathy or masses. No carotid bruits or JVD CHEST: Clear to auscultation. No respiratory distress. No wheezes rales or rhonchi HEART: Regular rate and rhythm. No murmur heard. Normal peripheral pulses. ABDOMEN: Soft, nontender, nondistended, normal active bowel sounds. EXTREMITIES: Normal range of motion. No edema. SKIN: There is a 14 x 6 cm skin tear to the left forearm and a flap formation. There is active oozing of sanguinous drainage. Left forearm and anterior aspect of right lower leg are ecchymotic NEURO: No focal deficits. Alert and oriented x3. PSYCH: Normal mood and affect. Course Course Emergency Course: This is an 88-year-old female who presented for evaluation of a skin tear to the left forearm after having a witnessed fall at home just prior to arrival. She had no clinical indication for neuro imaging. I offered to check an x-ray of her left forearm. She declined. I was able to approximate the edges of the tear fairly well for the majority of the wound however some edges were not able to be closely approximated. 14 steri--strips were applied. She tolerated well. She already has an appointment with her primary two days from now so was encouraged to keep that appt. She had no signs of injury to the pelvis or hips and had no tenderness whatsoever in those areas. She is up-to-date on tetanus. She is instructed to go to the emergency department if she has worsening symptoms. She declined prescription for analgesics. Patient in agreement with plan of care. Level of Care: Express Care Visit Vital Signs Vital signs: Vital Signs Temperature 36.3 C L 08/24/24 17:03 Pulse Rate 80 08/24/24 17:03 Respiratory Rate 20 08/24/24 17:03 Blood Pressure 114/52 L 08/24/24 17:03 Pulse Oximetry 100 08/24/24 17:03 Oxygen Delivery Room Air 08/24/24 17:03 Temperature 36.3 C L 08/24/24 17:03 Pulse Rate 80 08/24/24 17:03 Respiratory Rate 20 08/24/24 17:03 Blood Pressure 114/52 L 08/24/24 17:03 Pulse Oximetry 100 08/24/24 17:03 Oxygen Delivery Room Air 08/24/24 17:03 Medical Decision Making Vital Signs Vital Signs: Vital Signs Temperature 36.3 C L 08/24/24 17:03 Pulse Rate 80 08/24/24 17:03 Respiratory Rate 20 08/24/24 17:03 Blood Pressure 114/52 L 08/24/24 17:03 Pulse Oximetry 100 08/24/24 17:03 Oxygen Delivery Room Air 08/24/24 17:03 Temperature 36.3 C L 08/24/24 17:03 Pulse Rate 80 08/24/24 17:03 Respiratory Rate 20 08/24/24 17:03 Blood Pressure 114/52 L 08/24/24 17:03 Pulse Oximetry 100 08/24/24 17:03 Oxygen Delivery Room Air 08/24/24 17:03 Discharge Plan Discharge Clinical Impression: Skin tear of left forearm without complication Patient Disposition: Home, Self-Care Condition: Stable Instructions: Antibiotic Form, Skin Tear (ED), Fall Prevention (ED) Patient Language: Kittitian Prescriptions: No Action furosemide 40 mg tablet 40 mg DIRECTED clonazepam 0.5 mg Tablet 0.25 mg PO HS Rx Instructions: administer 30 minutes before bedtime gabapentin 100 mg capsule dapagliflozin propanediol [Farxiga] 10 mg tablet spironolactone 25 mg Tablet 25 mg PO DAILY propranolol 20 mg Tablet 20 mg PO Q12H felodipine 5 mg Tablet Extended Release 24 Hr 5 mg PO DAILY pramipexole 0.125 mg Tablet 0.125 mg PO BID cholecalciferol (vitamin D3) [Vitamin D3] 50 mcg (2,000 unit) Capsule 50 mcg PO DAILY atorvastatin 20 mg tablet allopurinol 100 mg tablet furosemide 80 mg tablet pantoprazole 40 mg tablet,delayed release (DR/EC) PO fluticasone propion-salmeterol [Wixela Inhub] 100-50 mcg/dose blister with device INHALATION Follow-up/Referrals: Eddie,MD Pepper [Primary Care Provider] - Time of Disposition: 18:00
--- NOTE | 2024-08-24 18:09 | PC.NURSE ---
NO dressing to be applied to left forearm per provider Gregg Malagon
== END 2024-08-24 18:07 | disposition home or self-care (01) ==
PROVIDERS: Emergency Provider Nurse Practitioner; PCP Internal Medicine Geriatric Medicine
DX: S51.812A Laceration without foreign body of left forearm, initial encounter (principal); I11.0 Hypertensive heart disease with heart failure; I50.9 Heart failure, unspecified; I48.91 Unspecified atrial fibrillation; G20.C Parkinsonism, unspecified; Z79.899 Other long term (current) drug therapy; Z87.891 Personal history of nicotine dependence; W18.39XA Other fall on same level, initial encounter
CPT/HCPCS: 99212; G0463

== ENCOUNTER 2024-09-18 14:13 | Emergency (ER) | payer MEDICARE, SELFPAY ==
[2024-09-18 14:21] VITALS: BP 108/75; PULSE 82; RESP 16; TEMP 36.2; O2SAT 100
--- NOTE | 2024-09-18 14:30 | PC.NURSE ---
in br to obtain ua spec.
--- NOTE | 2024-09-18 14:58 | ED.FEMALEGU ---
HPI - Female Genitourinary General Chief complaint: Urogenital-Female Stated complaint: urinary irritation Time Seen by Provider: 09/18/24 15:00 Source: patient and RN notes reviewed Mode of arrival: ambulatory Limitations: no limitations History of Present Illness HPI Narrative: 88-year-old female presented for complaint of burning with urination, frequency and urgency resulting in incontinence. Onset today. Denies hematuria, nausea, vomiting, abdominal pain, flank pain, constipation, diarrhea, fevers or chills. Related Data Home Medications ?Medication ?Instructions ?Recorded ?Confirmed ?Last Taken ?Type cholecalciferol (vitamin D3) 50 50 mcg PO DAILY 12/25/20 09/18/24 Unknown History mcg (2,000 unit) capsule (Vitamin D3) felodipine 5 mg tablet,extended 5 mg PO DAILY 12/25/20 09/18/24 Unknown History release 24 hr propranolol 20 mg tablet 20 mg PO Q12H 12/25/20 09/18/24 Unknown History spironolactone 25 mg tablet 25 mg PO DAILY 12/25/20 09/18/24 Unknown History allopurinol 100 mg tablet mg 06/10/24 Unknown History atorvastatin 20 mg tablet mg 06/10/24 Unknown History fluticasone 100 mcg-salmeterol 50 inhalation 06/10/24 Unknown History mcg/dose blistr powdr for inhalation (Wixela Inhub) furosemide 80 mg tablet mg 06/10/24 Unknown History pantoprazole 40 mg tablet,delayed mg PO 06/10/24 Unknown History release dapagliflozin propanediol 10 mg mg 08/24/24 Unknown History tablet (Farxiga) clopidogrel 75 mg tablet mg 09/18/24 Unknown History metolazone 5 mg tablet mg 09/18/24 Unknown History pramipexole 0.75 mg tablet mg 09/18/24 Unknown History Allergies Allergy/AdvReac Type Severity Reaction Status Date / Time Sulfa (Sulfonamide Allergy Severe Anaphylaxis Verified 09/18/24 14:27 Antibiotics) lisinopril Allergy Intermediate Swelling Verified 09/18/24 14:27 trazodone Allergy Intermediate Swelling Verified 09/18/24 14:27 of Lip/Tongue/Throat amlodipine Allergy Unknown Unknown Verified 09/18/24 14:27 celecoxib Allergy Unknown Swelling Verified 09/18/24 14:27 scopolamine AdvReac Intermediate Confusion Verified 09/18/24 14:27 Review of Systems Review of Systems: CONSTITUTIONAL: Denies body aches, fever, chills, or sweats. CARDIOVASCULAR: Denies chest pain, palpitations, or edema. RESPIRATORY: Denies cough or dyspnea. GASTROINTESTINAL: Denies abdominal pain, nausea, vomiting, or diarrhea. GENITOURINARY: Reports dysuria, frequency, urgency, denies hematuria, flank pain SKIN: Denies rash, itching, or wounds. MUSCULOSKELETAL: Denies back pain or myalgia. [facility] Past Medical History Medical History Kidney failure Congestive heart failure Atrial fibrillation Melanoma removed left arm Restless leg syndrome Spinal stenosis Parkinson disease GERD (gastroesophageal reflux disease) HTN (hypertension) Surgical History Surgical History History of right hip replacement History of bilateral knee replacement Family History Family History Other Heart disease Hypertension Social History Social History Smoking status: Former smoker Alcohol intake: current Alcohol use details: rare Substance use type: does not use Living arrangements: [facility] Gender identity (if verbalized by the patient): Female Comments At time of signature, I have reviewed and agree with nursing past medical, surgical, social and family history unless otherwise noted. Please see nursing chart for further information. There is no relevant family history pertinent to the presenting complaint Exam Narrative: GENERAL: Well-appearing and in no acute distress. ENT: Mucous membranes pink and moist. NECK: Normal AROM. Supple. CHEST: No respiratory distress. Clear to auscultation. HEART: Regular rate and rhythm. ABDOMEN: Soft, nontender, nondistended, normal active bowel sounds. No CVA tenderness SKIN: Warm, dry, no rash. NEURO: No focal deficits. Alert and oriented x3. Gait steady. PSYCH: Normal affect. No signs of depression or anxiety. Course Course Emergency Course: Patient is aware of diagnosis, understands and agrees to treatment plan. Anticipatory guidance given. Patient agrees to follow-up as directed and is aware of reasons to seek care at the emergency department. Portions of this record may have been created with voice recognition software Level of Care: Express Care Visit Vital Signs Vital signs: Vital Signs Temperature 97.2 F L 09/18/24 14:21 Pulse Rate 82 09/18/24 14:21 Respiratory Rate 16 09/18/24 14:21 Blood Pressure 108/75 09/18/24 14:21 Pulse Oximetry 100 09/18/24 14:21 Oxygen Delivery Room Air 09/18/24 14:21 Temperature 97.2 F L 09/18/24 14:21 Pulse Rate 82 09/18/24 14:21 Respiratory Rate 16 09/18/24 14:21 Blood Pressure 108/75 09/18/24 14:21 Pulse Oximetry 100 09/18/24 14:21 Oxygen Delivery Room Air 09/18/24 14:21 Reviewed MDM - Female Genitourinary MDM Narrative Medical decision making narrative: Discussed physical exam findings and urine dip. Rx cephalexin, will culture. Advised supportive measures and signs/symptoms to go to the ER. Pt is appropriate for outpt treatment and f/u. Differential Diagnosis Differential diagnosis: Likely urinary tract infection and cystitis Discharge Plan Discharge Clinical Impression: Urinary tract infection Patient Disposition: Home, Self-Care Condition: Stable Instructions: Antibiotic Form, Urinary Tract Infection in Older Adults (ED) Additional Instructions: Take the antibiotic as prescribed The urine will be sent of for a culture to identify what type of bacteria is causing your infection. If the culture shows that the antibiotic will not get rid of your infection, you will be notified and a new antibiotic will be called in for you. Increase water intake you will need to follow up with your PCP, call to schedule an appointment. Go to the ER for any worsening symptoms or concerns Patient Language: Israeli Prescriptions: New cephalexin 500 mg capsule 500 mg PO Q8H 5 Days Qty: 15 0RF No Action dapagliflozin propanediol [Farxiga] 10 mg tablet metolazone 5 mg tablet clopidogrel 75 mg tablet pramipexole 0.75 mg tablet spironolactone 25 mg Tablet 25 mg PO DAILY propranolol 20 mg Tablet 20 mg PO Q12H felodipine 5 mg Tablet Extended Release 24 Hr 5 mg PO DAILY cholecalciferol (vitamin D3) [Vitamin D3] 50 mcg (2,000 unit) Capsule 50 mcg PO DAILY atorvastatin 20 mg tablet allopurinol 100 mg tablet furosemide 80 mg tablet pantoprazole 40 mg tablet,delayed release (/EC) PO fluticasone propion-salmeterol [Wixela Inhub] 100-50 mcg/dose blister with device INHALATION Follow-up/Referrals: Eddie,MD Pepper [Primary Care Provider] - Time of Disposition: 15:05
[2024-09-18 15:03] LABS: EDUAAPPEAR Clear; EDUABILI Negative (Negative); EDUABLOOD 3+ (Negative); EDUACOLOR1 Red; EDUAGLUCOSE Trace (Negative); EDUAKETONE Negative (Negative); EDUALEUKO 1+ (Negative); EDUANITRATE Negative (Negative); EDUAPROTEIN 2+ (Negative); EDUASPGRAVITY 1.015; EDUAUROBILI 0.2
--- OUTSIDE RECORDS SUMMARY | 2024-09-18 15:37 | XMS_ITS | Encounter Summary ---
Author Organization [facility] Address [address] [place] [address] Care Team Providers Care Driver'S License Reviewing Officer Name Role Phone Pepper Morgan MD Primary Care Provider + [phone] Hank Garibay MD Unavailable [phone] Jacky Murry MD Unavailable [phone] Puma Mckenzie MD Unavailable [phone] Neha Jackson PT Unavailable Unavailable Stalin Arauz MD Unavailable [phone] Tiffany Rojas Unavailable [phone] Klaus Deshpande MD Unavailable [phone] Andrea Waddell RN Unavailable [phone] Reason for Visit * Reason Onset Date Comments Scheduling Appointments 01/27/2021 confirme d injection Encounter Details Date Type Department Care Team (Late st Contact Info) Description 01/27/2021 Telephone [facility] [address] [place] [address] Chata Benedict RT Scheduling Appointments (confirmed injection) [...] file 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 Gender Identity Not on file Sexual [...] COVID: Suspected 06/14/2023 06/14/2023 06/14/2023 6:44 PM 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 TRANSFER OPERATOR COVID: Suspected 06/24/2023 06/24/2023 06/24/2023 12:46 PM GAS TRANSFER OPERATOR documented as of this encounter Care Teams Driver'S License Reviewing Officer Relationship Specialty Start Date End Date Pepper Morgan MD PCP - General 09/16/16 Hank Garibay MD [address] [facility] [address] [place] [address] Surgeon Orthopedic Surgery 03/27/17 Jacky Murry MD [address] [facility] [address] [place] [address] Ophthalmology 03/27/17 Puma Mckenzie MD [address] [facility] [address] [place] [address] Surgeon Orthopedic Surgery 07/11/19 Neha Jackson, PT Physical Therapist Physical Therapy 12/01/21 Stalin Arauz MD Consulting Physician Cardiology 12/08/22 Tiffany Rojas PA [address] [place] [address] [address] [place] [address] Gastroenterology 12/30/22 Klaus Deshpande MD [address] [place] [address] [address] [place] [address] Consulting Physician Neurology 06/13/23 Andrea Waddell, XU [address] [place] [address] [address] [place] [address] Shoe Dyer 01/11/24 01/14/24 documented as of this encounter
--- OUTSIDE RECORDS SUMMARY | 2024-09-18 15:38 | XMS_ITS | Encounter Summary ---
Author Organization [facility] Address [address] [place] [address] Phone Care Team Providers Care Apprentice/Lineman Name Role Phone Pepper Morgan MD Primary Care Provider [phone] Melissa Hoyt RN Unavailable Hank Garibay MD Unavailable [phone] Jacky Murry MD Unavailable [phone] Puma Mckenzie MD Unavailable [phone] Neha Jackson PT Unavailable Unavailable Stalin Arauz MD Unavailable [phone] Tiffany Rojas Unavailable [phone] Klaus Deshpande MD Unavailable Andrea Waddell RN Unavailable Encounter Details Date Type Department Care Team (Late st Contact Info) Description 01/17/2017 Orders Only [facility] [address] 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 As no Triglycerides testing was ordered, interpret results with caution. Desirable range <100 mg/dL for patients with CHD or diabetes and <70 mg/dL for diabetic patients with known heart disease. Blood specimen (specimen) 03/20/2017 7:46 AM CDT 03/20/2017 7:46 AM CDT Narrative [facility] - 03/21/2017 3:24 AM CDT FASTING:YES Resulting Agency Comment Performing Organization Information: Site ID: [id number] Name: [facility] Address: [address] [facility] [place] [address] Director: Cedric Palm D.O., MPH us Pepper Morgan MD LAB BLOOD ORDERABLES Final Result [facility] [place] * (ABNORMAL) Comprehensive metabolic panel (03/20/2017 7:46 AM CDT) Glucose 90 65 - 99 mg/dL [facility] Comment: Fasting reference interval BUN 19 7 - 25 mg/dL [facility] [place] Creatinine 0.72 0.60 - 0.93 mg/dL [facility] [place] Comment: For patients >49 years of age, the reference limit for Creatinine is approximately 13% higher for people identified as -Malawian. eGFR NON-AFR. BOLIVIAN 80 > OR = 60 mL/min/1 .73m2 [facility] [place] EGFR 92 > OR = 60 mL/min/1 .73m2 [facility] [place] BUN/creat [...] [place] Calcium 9.4 8.6 - 10.4 mg/dL [facility] [place] Protein, sr 6.4 6.1 - 8.1 g/dL [facility] [place] Albumin 3.8 3.6 - 5.1 g/dL [facility] [place] Globulin 2.6 1.9 - 3.7 g/dL (calc) [facility] [place] Alb/glob ratio 1.5 1.0 - 2.5 (calc) [facility] [place] Bilirubin, total 0.5 0.2 - 1.2 mg/dL [facility] [place] Alk phos 103 33 - 130 U/L [facility] [place] AST 9(L) 10 - 35 U/L [facility] [place] ALT (SGPT) 7 6 - 29 U/L [facility] [place] Blood specimen (specimen) 03/20/2017 7:46 AM CDT 03/20/2017 7:46 AM CDT Narrative [facility] - 03/21/2017 3:24 AM CDT FASTING:YES Resulting Agency Comment Performing Organization Information: Site ID: [id number] Name: [facility] Address: [address] [place] [id number] Director: Cedric Palm D.O., MPH us Pepper Morgan MD LAB BLOOD ORDERABLES Final Result [facility] [place] documented in this encounter Visit Diagnoses Diagnosis Mixed hyperlipidemia- Primary documented in this encounter Additional Health Concerns Infection Onset Date Last Indicated Resolved Time COVID: Suspected 06/01/2020 06/01/2020 06/15/2020 3:07 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 COVID: Suspected 04/21/2021 04/21/2021 04/21/2021 4:25 PM CDT COVID: Suspected 10/14/2021 10/14/2021 10/14/2021 1:53 PM CDT COVID: Suspected 02/16/2023 02/16/2023 02/16/2023 8:33 AM CDT COVID: Suspected 06/14/2023 06/14/2023 06/14/2023 6:44 PM BEATER ROOM SUPERVISOR COVID: Suspected 06/24/2023 06/24/2023 06/24/2023 12:46 PM BEATER ROOM SUPERVISOR documented as of this encounter Care Teams Apprentice/Lineman Relationship Specialty Start Date End Date Pepper Morgan MD PCP - General 09/16/16 Melissa Hoyt, RN [address] [place] [address] [employer] Director 02/21/17 02/21/17 Hank Garibay MD [address] [place] [address] [address] [address] Surgeon Orthopedic Surgery 03/27/17 Jacky Murry MD [address] [place] [address] [facility] [address] [place] [address] Ophthalmology 03/27/17 Puma Mckenzie MD [address] [place] [address] [address] [address] Surgeon Orthopedic Surgery 07/11/19 Neha Jackson, PT Physical Therapist Physical Therapy 12/01/21 Stalin Arauz MD Consulting Physician Cardiology 12/08/22 Tiffany Rojas PA [address] [facility] [address] [place] [address] Gastroenterology 12/30/22 Klaus Deshpande MD [address] [facility] [address] [place] [address] Consulting Physician Neurology 06/13/23 Andrea Waddell, XU [address] [place] [address] [address] [place] [address] Craft Center Director 01/11/24 01/14/24 documented as of this encounter
--- OUTSIDE RECORDS SUMMARY | 2024-09-18 15:38 | XMS_ITS | Encounter Summary ---
Author Organization [facility] Address [address] [place] [address] Care Team Providers Care Animal Scientist Name Role Phone Pepper Morgan MD Primary Care Provider + [phone] Hank Garibay MD Unavailable [phone] Jacky Murry MD Unavailable [phone] Puma Mckenzie MD Unavailable [phone] Neha Jackson PT Unavailable Unavailable Stalin Arauz MD Unavailable [phone] Tiffany Rojas PA Unavailable [phone] Klaus Deshpande MD Unavailable [phone] Reason for Referral * Cardiology (Routine) - Authorized Specialty Diagnoses / Procedures Referred By Contac t Referred To Contact Diagnoses Presence of Amulet left atrial appendage closure device Procedures Transesophageal Echo (AZEEM) W Doppler/CF TRANSESOPHAGEAL ECHO (AZEEM) W DOPPLER/CF TRANSESOPHAGEAL ECHO (AZEEM) W DOPPLER/CF WO CONTRAST TRANSESOPHAGEAL ECHOCARDIOGRAM (AZEEM) COMPLETE W/ CONTRAST TRANSESOPHAGEAL ECHO (AZEEM) W DOPPLER/CF W CONTRAST TRANSESOPHAGEAL ECHO (AZEEM) W LTD DOPPLER/CF WO CONTRAST TRANSESOPHAGEAL ECHOCARDIOGRAM (AZEEM) COMPLETE W/ COLOR TRANSESOPHAGEAL ECHO (AZEEM) WO DOPPLER/CF W CONTRAST Stalin Arauz MD [address] [place] [address] [place] [address] Phone: tel: fax: [facility] [address] [place] [address] Referral ID Status Reason Start Date Expiration Date V isits Requested Visits Authorized [id number] Authorized 09/18/2024 10/18/2025 1 1 Encounter Details Date Type Department Care Team (Late st Contact Info) Description 09/18/2024 Orders Only [place] Analysis [facility] 2 [facility] [address] [place] [address] Stalin Arauz MD [address] [place] [address] [address] [place] [address] Presence of Amulet left atrial appendage closure device (Primary Dx) Social History Tobacco Use Types Packs/Day Years Used Date Smoking Tobacco: Former Cigarettes 1981 Smokeless Tobacco: Never Alcohol Use Standard Drinks/Week Comments Not Currently 0 (1 standard drink = 0.6 oz pur e alcohol) [facility] Utilities Answer Date Recorded In the past 12 months has [employer] electric, gas, oil, or water company threatened [...] attend chur ch or sikhism services? Never 04/11/2024 Do you belong to [...] points, staff should administer the PHQ-9) 0 08/26/2024 Hunger Vital Sign Answer Date Recorded Within [...] in a long-term (including now)? No 07/24/2023 Housing Stability Vital Sign Answer Neville e Recorded In the last 12 months, was t here a time when you were not able to pay the mortgage or rent on time? No 04/11/2024 In the past 12 months, how m any times have you moved where you were living? 0 04/11/2024 At any time in the past 12 m [facility], were you homeless or living in a long-term (including now)? No 04/11/2024 Personal Safety Answer Date Recorded Have you ever been in or are you currently in a harmful physical or emotional relationship or is someone making you feel afraid or unsafe? Denies 08/26/2024 Education Answer Date Recorded What is the highest level of school you have completed or the highest degree you have received? High school graduate 04/11/2024 Comments No Sex and Gender Information Value Date Recorded Sex Assigned at Not on file Legal Sex Female 4:33 AM ASSISTANT ACCOUNT EXECUTIVE Gender Identity Not on file Sexual Orientation Not on file Occupation Industry Job Start Date Job End Date retired Not on file Not on file Not on file documented as of this encounter Plan of Treatment Scheduled Orders Name Type Priority Associated Diagnoses Order Schedule Transesophageal Echo (AZEEM) W Doppler/CF Echocardiography Routine Presence of Amulet left atrial appendage closure device Expected: 09/18/2024, Expires: 12/18/2025 documented as of this encounter Goals Goal Patient Goal Type Associated Problems Recent Progress Patient-Stated? Author BH-Pain Behavioral Health Improving( 3:34 PM CDT) No Domitila Garay, XU Note: Patient will establish a comfort-function goal and identify the pain level that will allow the patient to perform desired activities and achieve an acceptable quality of life. documented as of this encounter Visit Diagnoses Diagnosis Presence of Amulet left atrial appendage closure device- Primary documented in this encounter Care Teams Animal Scientist Relationship Specialty Start Date End Date Pepper Morgan MD PCP - General 09/16/16 Hank Garibay MD [address] [place] [address] [address] [place] [address] Surgeon Orthopedic Surgery 03/27/17 Jacky Murry MD [address] [facility] [address] [place] [address] Ophthalmology 03/27/17 Puma Mckenzie MD [address] [place] [address] [address] [place] [address] Surgeon Orthopedic Surgery 07/11/19 Neha Jackson, PT Physical Therapist Physical Therapy 12/01/21 Stalin Arauz MD Consulting Physician Cardiology 12/08/22 Tiffany Rojas PA [address] [place] [address] [address] [place] [address] Gastroenterology 12/30/22 Klaus Deshpande MD [address] [place] [address] [address] [place] [address] Consulting Physician Neurology 06/13/23 documented as of this encounter
--- OUTSIDE RECORDS SUMMARY | 2024-09-18 15:38 | XMS_ITS | Continuity of Care Document ---
Author Organization [facility] Address [address] [place] [address] Phone Care Team Providers Care Customs Officer Name Role Phone Kevonhawa RESENDEZ, Tamie Unavailable [...] Diagnoses Date Provider Providers Copied on Encounter [facility], [address], [place], [place], [address], [place] tel:[phone] SEC Antoine DIXON Professional Complete Exam (chief complaint) Presence of intraocular lensVitreous degeneration, left eyeDrusen (degenerative ) of macula, bilateralEpir etinal membrane (ERM) of right eyeKeratoconj unctivitis sicca, not specified as Sjogren's, bilateral 4 Kevon OD Tamie. [address] [employer] [address], [address], [place], [place], [address], [place]. tel:[phone] Referring Provider: Tamie Porter, [facility] [address], [place], [address] . tel:[phone] [facility], [address] [place], [place] [address] [address], [place], [place], [address], [place] tel:[phone] SEC [place] Professional YAG PO (chief complaint) Post op visit 4 Ryann OD Concetta. [address] [place], [place] [address], [address], [place], [place], [address], [place]. tel:[phone] Referring Provider: Tamie Porter, [address] [place], [place] [address]i [address], [place], [address] . tel:[phone] Office/outpa tient Visit, [facility], [address] [place], [place] [address] [address], [place], [place], [address], [place] tel:[phone] SEC [place] Professional YAG capsulotomy evaluation (chief complaint) Other secondary cataract, left eye Sep-3 4 Singer Enrico. [address] [place], [place] [address], [address], [place], [place], [address], [place]. tel:[phone] Referring Provider: Tamie Proter, [address] [place] [address] [address], [place], [address] . tel:[phone] Office/outpa tient Visit, [facility], [address] [place], [place] [address] [facility] [address], [place], [place], [address], [place] tel:[phone] SEC Anto[place] Professional Follow up visit (chief complaint) Other secondary cataract, left eyeBilateral artificial lens implant Sep- 4 Kevon OD Tamie. [address] [place], [place] [address] [address], [address], [place], [place], [address], [place]. tel:[phone] Referring Provider: Tamie Porter, [address], [place], [address] . tel:[phone] [facility], [address], [place], [place], [address], [place] tel:[phone] SEC [place] Professional Complete Exam (chief complaint) Macular hole of right eyeDry eye syndrome of right lacrimal glandDry eye syndrome of left lacrimal glandVitreous degeneration, left eye Jan- 3 Kevon OD Tamie. [address] [place] [address] [address], [address], [place], [place], [address], [place]. tel:[phone] Referring Provider: Tamie Lund OD [place], [address], [place], [address] . tel:[phone] [facility], [address] [place] [address] [address], [place], [place], [address], [place] tel:[phone] SEC [place] Professional Complete Exam (chief complaint) Vitreous degeneration, left eyePresence of intraocular lensOther secondary cataract, left eyeDrusen (degenerative ) of macula, bilateral Jan- 2 Jeanmarie Rico. [address], [address], [place], [place], [address], [place]. tel:[phone] Referring Provider: Jacky Escobedo, [address], [place], [address] . tel:[phone] Office/outpa tient Visit, [facility], [address], [place], [place], [address], [place] tel:[phone] SEC Anto[place] Professional hair like image (chief complaint) Vitreous degeneration, left eyePresence of intraocular lensOther secondary cataract, left eye Aug- 2 Jeanmarie Rico. [address] [facility], [address], [place], [place], [address], [place]. tel:[phone] Referring Provider: Jacky Escobedo, [address], [place], [address] . tel:[phone] [facility], [address], [place], [place], [address], [place] tel:[phone] SEC [place] Professional Complete Exam (chief complaint) Presence of intraocular lensMacular hole of right eyeOther secondary cataract, left eye 9 Jeanmarie Penason. [address], [place], [place], [address], [place]. tel:[phone] Referring Provider: Jacky Escobedo, [address] [facility] [address], [place], [address] . tel:[phone] [facility], [address], [place], [place], [address], [place] tel:[phone] SEC [place] Professional No Information 9 Jeanmarie Rico. [address], [place], [place], [address], [place]. tel:[phone] [facility], [address], [place], [place], [address], [place] tel:[phone] SEC [place] Professional Complete Exam (chief complaint) No Information 7 Jeanmarie Rico. [address], [place], [place], [address], [place]. tel:[phone] Referring Provider: Michael Liz, [address], [place], [address] . tel:[phone] [facility], [address], [place], [place], [address], [place] tel:[phone] SEC [place] Professional Complete Exam (chief complaint) No Information 6 Jazzmine Rodriguez. [address], [place], [place], [address], . tel:[phone] Referring Provider: Michael Liz, [address] [facility] [address], [place], [address] . tel:[phone] [facility], [address], [place], [place], [address], [phone] SEC Anto[place] Professional Blurry vision (chief complaint) No Information 5 Conrado Blackburn. [address] [facility] [facility], [address], [place], [address], [place]. tel:[phone] Referring Provider: Michael Liz, [address] [facility] [address], [place], [address] . tel:[phone] [facility], [address], [place], [place], [address], [place] [phone] SEC Antoine DESTINY Professional No Information 5 Jazzmine Rodriguez. [address] [facility], [facility] [place], [place], [address], . tel:[phone] Family History Family Member Type Diagnosis Age At Onset Mother Problem (finding) degenerative disorder o f macula Father Problem (finding) glaucoma Payers Payer name Insurance type Covered alliance party ID Authoriza tion(s) [place] [id number] [facility] Out Of State [id number] Social History Type Description Quantity Date Captured [...] for complete exam or sooner with problems. 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 IOL's in good position. History of Macular hole OD. Recommend artificial tears prn for dry eyes especially while reading. No signs of Glaucoma or AMD OU. Recommend OTC readers for near. Return to clinic in 1 year for complete exam or sooner with any problems. Follow up - Return i n 1 year with Michael Dover M.D. for Complete Exam. Pseudophakia - Educa tional material given Related to Pseudophakia - Discussed diagnosi s with patient. No treatment needed at this time. Recommend AREDS II formula. Recommend patient to discuss shingles vaccine with Dr Morgan. Rx for glasses given. Return in 1 year for complete exam or sooner with any problems. Related to Macular hole - Return in 1 year w korina Dover M.D. 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
--- OUTSIDE RECORDS SUMMARY | 2024-09-18 15:38 | XMS_ITS | Encounter Summary ---
Author Organization [facility] Address [address] [facility] [address] [place] [address] Phone Care Team Providers Care Knitting Machine Tender Name Role Phone Maude Harris BIG DATA PLATFORM ARCHITECT-INSTALL AND REPAIR TECHNICIAN Primary Care Provider Unavailable Encounter Details Date Type Department Care Team (Late Contact Info) Description 09/16/2024 Documentation Only [facility]. [address] [facility] [address] [place] [address] Tristin Guillen MD [address] [facility] [address] [place] [address] Social History Tobacco Use Types [...] Encounters Date Type Department Care Team (Late Contact Info) Description 10/04/2024 12:15 PM CDT Office Visit [facility]. [address] [facility] [address] [place] [address] Tristin Guillen MD [address] [facility] [address] [place] [address] documented as of this encounter Visit Diagnoses Not on filedocumented in this encounter Care Teams Knitting Machine Tender Relationship Specialty Start Date End Date Maude Harris APRN-INSTALL AND REPAIR TECHNICIAN [address] [place] [address] PCP - General Top Cager 06/05/24 documented as of this encounter
--- OUTSIDE RECORDS SUMMARY | 2024-09-18 15:38 | XMS_ITS | Encounter Summary ---
Author Organization [facility] Address [address] [place] [address] Care Team Providers Care Hardware Manager Name Role Phone Pepper Morgan MD Primary Care Provider [phone] Hank Garibay MD Unavailable [phone] Jacky Murry MD Unavailable [phone] Puma Mckenzie MD Unavailable [phone] Neha Jackson PT Unavailable Unavailable Stalin Arauz MD Unavailable [phone] Tiffany Rojas Unavailable [phone] Klaus Deshpande MD Unavailable [phone] Reason for Visit * Reason Onset Date Comments Blood in Urine 09/18/2024 Encounter Details Date Type Department Care Team (Late st Contact Info) Description 09/18/2024 Telephone [facility] [address] [place] [address] Pepper Morgan MD [address] [address] Blood in Urine Social History Tobacco Use Types Packs/Day Years Used Date Smoking Tobacco: Former Cigarettes 2 30 1 952 - 1982 Smokeless Tobacco: Never Alcohol Use Standard Drinks/Week Comments Not Currently 0 (1 standard drink = 0.6 oz pur e alcohol) [facility] Utilities Answer Date Recorded In [...] attend chur ch or nondenominational services? Never 04/11/2024 Do you belong to any clubs o r organizations such as pentecostalism groups, unions, fraternal or athletic groups, or [...] on file Legal Sex Female 4:33 AM STUNNER Gender Identity Not on file Sexual Orientation Not on file Occupation Industry Job Start Date Job End Date retired Not on file Not on file Not on file documented as of this encounter Miscellaneous Notes * Telephone Encounter - Charity Pinedo LPN - 09/18/2024 1:26 PM CDT Informed pt [phone] that she would need to be seen in clinic for evaluation since she has blood inthe toilet. Pt states she will go to [facility] for her symptoms because it is closer to her home and the weather is supposed to get bad this afternoon. This nurse did advise pt that our NPdoes have an opening today at 2 PM, however, pt opted for urgent care. Did advise pt if she does not get in with urgent care this afternoon, to call back and we will get her scheduled tomorrow morning with DIVISION SUPERVISOR. Pt did voice understanding and had no further questions/concerns at this time. * Telephone Encounter - Jacqueline Plasencia - 09/18/2024 1:02 PM CDT Patient states that she thinks she has a UTI. States that she has been bleeding when she looks in the toilet. States no other symptoms. [phone] documented in this encounter Plan of Treatment [...] on filedocumented in this encounter Care Teams Hardware Manager Relationship Specialty Start Date End Date Pepper Morgan MD PCP - General 09/16/16 Hank Garibay MD [address] [place] [address] [address] [place] [address] Surgeon Orthopedic Surgery 03/27/17 Jacky Murry MD [address] [place] [address] [address] [place] [address] Ophthalmology 03/27/17 Puma Mckenzie MD [address] [facility] [address] [facility] [address] [place] [address] Surgeon Orthopedic Surgery 07/11/19 Neha Jackson, PT Physical Therapist Physical Therapy 12/01/21 Stalin Arauz MD Consulting Physician Cardiology 12/08/22 Tiffany Rojas PA [address] [facility] [address] [place] [address] Gastroenterology 12/30/22 Klaus Deshpande MD [address] [facility] [address] [place] [address] Consulting Physician Neurology 06/13/23 documented as of this encounter
--- OUTSIDE RECORDS SUMMARY | 2024-09-18 15:38 | XMS_ITS | Clinical Summary ---
Author Organization [facility] Address [address] [place] [address] Phone Care Team Providers Care Visual Merchandising Assistant Name Role Phone Tristin Morgan MD Primary Care Provider [phone] Social History Tobacco Use Types Packs/Day Years Used Date Smoking Tobacco: Never Assessed Comments Unknown Sex and Gender Information Value Date Recorded Sex Assigned at Not on file Legal Sex Female 11:44 PM CDT Gender Identity Not on file Sexual Orientation Not on file Plan of Treatment Health Maintenance Due Date Last Done Comments Hepatitis C Virus (HCV) Screening 1935 Pneumococcal [...] to [place] [address] MEDICARE [facility] Care Teams Visual Merchandising Assistant Relationship Specialty Start Date End Date Tristin Morgan MD [employer], [address] [place] [address] PCP - General Infectious Disease 07/25/19
--- OUTSIDE RECORDS SUMMARY | 2024-09-18 15:38 | XMS_ITS | Encounter Summary ---
Author Organization [facility] Address [address] [place] [address] Phone Care Team Providers Care Rehab Rn Name Role Phone Maude Harris FINISHING OPERATOR-SPOOL FIXER Primary Care Provider Unavailable Encounter Details Date Type Department Care Team (Late Contact Info) Description 09/16/2024 Documentation Only [facility] [place]. [address] [place] [address] Tristin Guillen MD [address] [place] [address] Social History Tobacco Use Types [...] Description 10/04/2024 12:15 PM CDT Office Visit [facility]. [address] [place] [address] Tristin Guillen MD [address] [place] [address] documented as of this encounter Visit Diagnoses Not on filedocumented in this encounter Care Teams Rehab Rn Relationship Specialty Start Date End Date Maude Harris APRN-SPOOL FIXER [address] [place] [address] PCP - General Mathematics Faculty Member 06/05/24 documented as of this encounter
--- OUTSIDE RECORDS SUMMARY | 2024-09-18 15:38 | XMS_ITS | Clinical Summary ---
Author Organization [facility] Address [address] [place] [address] Care Team Providers Care Party Plan Selling Distributor Name Role Phone Pepper Morgan MD Primary Care Provider + [phone] Hank Garibay MD Unavailable [phone] Jacky Murry MD Unavailable [phone] Puma Mckenzie MD Unavailable [phone] Neha Jackson PT Unavailable Unavailable Stalin Arauz MD Unavailable [phone] Tiffany Rojas PA Unavailable [phone] Klaus Deshpande MD Unavailable [phone] Allergies Active Allergy Reactions Criticality Noted Date [...] High Trazodone Swelling Medium 03/11/2019 Tongue Medications cholecalciferol (VITAMIN D-3) 2000 unit tablet Take 1 tablet (2,000 Units total) by mouth daily Active cetirizine (ZyrTEC) 10 mg tabletIndicatio ns:Angioedema, subsequent encounter Take 1 tablet (10 mg total) by mouth nightly 90 tablet 3 023 Active albuterol HFA (Proventil HFA) 90 mcg/actuation inhalerIndicati ons:Mild persistent asthma, unspecified whether complicated Inhale 2 puffs every 6 (six) hours as needed for wheezing or shortness of breath 6.7 g 3 023 Active ascorbic acid, vitamin C, 250 mg tablet,chewable Take 250 mg by mouth 3 (three) times a week Take with the iron 325 mg to ensure absorption Monday 90 tablet 1 024 Active carbamide peroxide (DEBROX) 6.5 % otic solutionIndicat ions:Bilateral impacted cerumen Administer 5 drops into each ear as needed for ear pain (monday right ear, monday left ear) 30 mL 1 024 2024 Active polyethylene glycol (MIRALAX) 17 gram packetIndicatio ns:constipation Take 1 packet (17 g total) by mouth daily as needed for constipation Active acetaminophen (TYLENOL) 500 mg tablet Take 2 tablets (1,000 mg total) by mouth 2 (two) times a day as needed for pain Active allopurinoL (ZYLOPRIM) 100 mg tabletIndicatio ns:Gouty arthritis of foot TAKE 2 TABLETS BY MOUTH EVERY DAY 180 tablet 1 024 Active pramipexole (MIRAPEX) 0.75 mg tabletIndicatio ns:Restless legs syndrome TAKE 1 TABLET (0.75 MG TOTAL) BY MOUTH 2 TIMES A DAY 180 tablet 2 024 Active atorvastatin (LIPITOR) 20 mg tablet Take 1 tablet (20 mg total) by mouth daily 30 tablet 025 2025 Active furosemide (LASIX) 80 mg tablet Take 1 tablet (80 mg total) by mouth 2 (two) times a day 60 tablet 025 Active metOLazone (ZAROXOLYN) 5 mg tablet Take 1 tablet (5 mg total) by mouth 2 (two) times a week 15 tablet 3 025 Active gabapentin (NEURONTIN) 100 mg capsule Take 1 capsule (100 mg total) by mouth 3 (three) times a day 90 capsule 5 025 2024 Active cyanocobalamin (Vitamin B-12) 500 mcg tablet Take 1 tablet (500 mcg total) by mouth daily Active aspirin 81 mg chewable tabletIndicatio ns:coronary artery disease Take 1 tablet (81 mg total) by mouth daily 30 tablet 025 2025 Active clopidogreL (PLAVIX) 75 mg tabletIndicatio ns:coronary artery disease Take 1 tablet (75 mg total) by mouth daily 30 tablet 025 2025 Active dapagliflozin propanediol (FARXIGA) 10 mg tabletIndicatio ns:Heart Failure Take 1 tablet (10 mg total) by mouth daily 90 tablet 3 Active spironolactone (ALDACTONE) 25 mg tablet Take 1 tablet (25 mg total) by mouth daily 90 tablet 3 025 2025 Active propranoloL (INDERAL) 20 mg tabletIndicatio ns:Essential tremor Take 1 tablet (20 mg total) by mouth 2 (two) times a day [address] (PROTONIX) 40 mg EC tabletIndicatio ns:Chronic GERD Take 1 tablet (40 mg total) by mouth daily before breakfast Eat within 30 minutes of taking the pill 90 tablet 3 025 Active fluticasone propion-salmete roL (Wixela Inhub) 100-50 mcg/dose diskus inhalerIndicati ons:Mild persistent asthma without complication Inhale 1 puff 2 (two) times a day Rinse mouth with water after use. Do not swallow. 60 each 6 025 Active Ferrocite 324 mg (106 mg iron) tabletIndicatio ns:Gastrointest inal hemorrhage, unspecified,Uns pecified hemorrhoids TAKE 1 TAB BY MOUTH 3 TIMES WEEKLY WITH VITAMIN-C TABLET - VITAMIN C HELPS ABSORPTION 100 tablet 1 025 Active cyclobenzaprine (FLEXERIL) 10 mg tablet Take 1 tablet (10 mg total) by mouth nightly as needed for muscle spasms 30 tablet [address] (PROTONIX) 40 mg EC tabletIndicatio ns:Chronic GERD Take 1 tablet (40 mg total) by mouth daily 90 tablet 2 024 2024 Discontinued(R eorder) Ferrocite 324 mg (106 mg iron) tablet Take 324 mg by mouth 3 (three) times a day 2024 Discontinued vericiguat (Verquvo) 2.5 mg tablet Take 1 tablet (2.5 mg total) by mouth daily 14 tablet 2024 Discontinued(T herapy completed) fluticasone propion-salmete roL (Wixela Inhub) 100-50 mcg/dose diskus inhaler Inhale 1 puff 2 (two) times a day Rinse mouth with water after use. Do not swallow. 60 each 2 025 2024 Discontinued(R eorder) doxycycline (VIBRAMYCIN) 100 mg capsule Take 1 tablet/capsule (100 mg total) by mouth 2 (two) times a day for 5 days 10 tablet/caps ule 025 2024 Active Problems Problem Noted Date Diagnosed Date At high risk for injury related to fall 08/27/19 Chronic bronchitis, unspecified chronic bronchit is type 08/26/2024 Presence of Amulet left atrial appendage closure device 07/31/2024 Chronic blood loss anemia 02/08/2024 CKD stage 3b, GFR 30-44 ml/min 01/11/2024 Bleeding hemorrhoids 01/11/2024 Gouty arthritis of foot 11/24/2023 Atherosclerosis of beaver ar teries of extremities with intermittent claudication, bilateral legs 07/31/2023 [place] of macula of both eyes 05/30/2023 Mild persistent asthma 03/13/2023 Assessment & Plan (06/13/2023 7:53 PM COMPLIANCE ASSOCIATE): Controlled on advair and albuterol. No acute [...] comorbidity and body mass index (BMI) of 33.0 to 33.9 in adult 02/07/2023 Gait disturbance 11/11/2022 Acute on chronic heart failu re with preserved ejection fraction 07/25/2022 Assessment & Plan (06/13/2023 7:50 PM COMPLIANCE ASSOCIATE): BP soft but stable in office today [...] propranolol. Postural kyphosis of cervicothoracic region 01/2022 residential current use of anticoagulant 2 Peripheral arterial [...] in detail. Return in about one week. Knee joint replacement status, bilateral 017 Overview [...] pharmacy. Assessment & Plan (08/08/2019 12:32 PM COMPLIANCE ASSOCIATE): She has a known tremor, but has progressively gotten worse with a limited hand ink maker and difficulty holding a pen or fork. Will discuss additional treatment options with Dr. Morgan. Chronic GERD 11/02/2013 Overview (09/22/2016): Acid reflux Assessment & Plan (06/24/2019 9:31 AM COMPLIANCE ASSOCIATE): Symptoms have improved with protonix. She has had no further issues. We will continue with present regimen. Benign hypertension 11/02/2013 Overview (09/23/2016): Benign essential HTN Assessment & Plan (06/13/2023 7:49 PM COMPLIANCE ASSOCIATE): BP soft but stable in office today [...] above. Assessment & Plan (06/24/2019 12:50 PM COMPLIANCE ASSOCIATE): Well controlled will continue present regimen. Restless [...] Problem Noted Date Diagnosed Date Resolved Date DANNY (acute kidney injury) 04/10/2024 Prediabetes 01/11/2024 08/26/2024 Acute lower GI bleeding 01/11/202408/17 Esophageal dysphagia 11/24/2023 025 Skin tear of right forearm w ithout complication 09/27/2023 08/26/2024 Hospital discharge follow-up 01/11/2023 01/11/2024 Assessment & [...] 24 hours. Will rx augmentin as directed. [place] diet, stay hydrated. Continue immodium as needed. ADDENDUM: patient states augmentin made symptoms worse, stop all abx and start budesonide as directed. Follow in 2 weeks. Parkinson's disease (tremor, stiffness, slow motion, unstable posture) 01/24/2022 12/08/2022 Lymphedema 12/06/2021 01/24/2022 Tremor 12/06/2021 04/10/2023 Overview (01/24/2022): Cogwheel tremor right hand greater than left consistent with Parkinson's treating for her restless leg with Mirapex with relief oil heaterman (current) use of opiate analgesic 11/30/2021 01/24/2022 Insomnia secondary to chronic pain 11/16/2021 01/24/2022 Lumbar radiculopathy 11/16/2021 08/08/2 022 Chronic bilateral low back p ain [...] 022 Assessment & Plan (08/11/2021 9:51 AM COMPLIANCE ASSOCIATE): Patient presents with recurrent issues of left [...] consider checking C1 esterase and referral to return clerk. However, patient states she has done this in the past and w/u was benign. She will call or return sooner if needed. Shortness of breath 04/21/2021 08/27/19 25 Assessment & Plan (06/13/2023 7:51 PM COMPLIANCE ASSOCIATE): More likely due to CHF and 7 [...] or sooner if needed. Atrial fibrillation 04/21/2021 08/27/19 Assessment & Plan (02/06/2023 8:07 PM CDT): [...] were discussed with patient and understanding verbalized. Chest congestion 01/08/2021 06/01/2021 Assessment & Plan [...] 06/01/2021 Assessment & Plan (06/02/2020 11:07 AM COMPLIANCE ASSOCIATE): Patient presents with congestion, purulent discharge, ear pain/pressure and PND most consistent with acute sinusitis. She reports she has been using sinus rinse, flonase and Muccinex OTC. COVID-19 rapid testing negative and no known COVID-19 exposure. She will continue quarantine until symptoms improving. She will begin antibiotic therapy and complete as prescribed. She will call with persistent or unresolved symptoms. oil heaterman (current) use of n on-steroidal anti-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s (nsaid) 11/18/2019 06/01/2021 Constipation due to opioid therapy 11/18/2019 01/24/2022 Edema 08/08/2019 11/18/2019 Assessment & Plan (08/08/2019 10:37 AM COMPLIANCE ASSOCIATE): Improved with lasix. We will repeat BMP to monitor renal function. She remains on aldactone which we will continue. She was encouraged to keep legs elevated while at rest and to avoid additional salt intake. If edema returns can prescribe lasix prn if renal function is stable Acute low back pain 08/08/2019 06/01/20 Assessment & Plan (08/08/2019 12:31 PM COMPLIANCE ASSOCIATE): Most likely secondary to degenerative disc disease. Unable to evaluate patient ROM or reflexes d/t her antalgic gait and inability to get on exam table. We will do xray of the lumbar spine to evaluate for any acute process. Will begin tramadol for pain. She is to call if symptoms worsen or persist Iron deficiency anemia, unspecified 08/08/2019 08/26/2024 Assessment & Plan (08/08/2019 10:35 AM COMPLIANCE ASSOCIATE): Noted post-operatively. She has been on iron daily and is experiencing significant constipation. Instructed her to decrease iron dose to M, W, F and to increase her fluid intake. We will repeat CBC if H&H improved will stop iron and monitor. Bilateral leg edema 07/11/2019 11/18/19 Overview (07/24/2019): [...] symptom. Dr Saud Ayers 2017-10-09 16:41:50 CDT Bariatric surgery status 04/04/201703/2025 Overview (04/04/2017): Hx gastroplasty by Dr. Raphael 1984 Insomnia, persistent 04/04/2017 023 Chronic pain disorder [...] management. Assessment & Plan (06/24/2019 12:50 PM COMPLIANCE ASSOCIATE): She has plans for rt hip replacement [...] Encounters Date Type Department Care Team Description 09/18/2024 Telephone [facility] [address] [place] [address] [address] [place] [address] Pepper Morgan MD Blood in Urine 09/18/2024 Orders Only [facility] at [address] [place] [address] Stalin Arauz MD Presence of Amulet left atrial appendage closure device (Primary Dx) 09/16/2024 1:00 PM CDT Lab [address] [address] Arrived 09/16/2024 11:00 AM CDT Orders Only [facility] [address] [place] [address] 09/16/2024 Telephone [facility] at [address] [place] [address] Mckenzie Reyes MA 09/09/2024 9:00 AM CDT Orders Only [facility] [address] [place] [address] 09/03/2024 2:45 PM CDT Office Visit [facility] at [address] [place] [address] Maude Harris NP Chronic atrial fibrillation (HCC) (Primary Dx) 09/02/2024 9:00 AM CDT Orders Only [facility] [address] [place] [address] ISTAP type 3 skin tear of left upper arm 08/26/2024 5:01 PM CDT - 08/26/2024 6:34 PM CDT Emergency [facility] Emergency Department [address] [place] [address] Laceration of left upper extremity, initial encounter (Primary Dx) Discharge Disposition: Discharge to home or self care 08/26/2024 1:00 PM CDT Office Visit [facility] [address] [facility] [address] [place] [address] Pepper Morgan MD Annual physical exam (Primary Dx); At high risk for injury related to fall; Right leg weakness; Spinal stenosis of lumbar region with neurogenic claudication; Essential tremor; Gouty arthritis of foot; Gait disturbance; ISTAP type 3 skin tear of left upper arm; Atherosclerosis of beaver arteries of extremities with intermittent claudication, bilateral legs; Class 1 obesity with serious comorbidity and body mass index (BMI) of 33.0 to 33.9 in adult, unspecified obesity type; Acute on chronic heart failure with preserved ejection fraction (HCC); Benign hypertension; Chronic atrial fibrillation (HCC); Presence of Amulet left atrial appendage closure device; oil heaterman current use of anticoagulant; Mild persistent asthma without complication; History of malignant melanoma; Purpura; CKD stage 3b, GFR 30-44 ml/min (HCC); Chronic GERD; Chronic blood loss anemia; Bleeding hemorrhoids; Bariatric surgery status; Immunization counseling; Chronic bronchitis, unspecified chronic bronchitis type (HCC) 08/21/2024 2:45 PM COMPLIANCE ASSOCIATE - 08/21/2024 11:59 PM COMPLIANCE ASSOCIATE Hospital Encounter [facility] [address] [place] [address] Stage 3 chronic kidney disease, unspecified whether stage 3a or 3b CKD (HCC); Essential (primary) hypertension; Chronic systolic (congestive) heart failure (HCC); Hypertensive chronic kidney disease with stage 1 through stage 4 chronic kidney disease, or unspecified chronic kidney disease Discharge Disposition: Discharge to home or self care 08/15/2024 1:15 PM COMPLIANCE ASSOCIATE Office Visit [facility] [address] [facility] [address] [place] [address] Jadyn Hobson PA Osteoarthritis of right glenohumeral joint (Primary Dx); Right rotator cuff tear arthropathy 08/15/2024 Orders Only [facility] Medicine [address] [facility] [address] [place] [address] Jadyn Hobson PA 08/15/2024 Orders Only [facility] Medicine [address] [place] [address] [address] [place] [address] Jadyn Hobson PA Osteoarthritis of right glenohumeral joint (Primary Dx); Right rotator cuff tear arthropathy; Complete tear of right rotator cuff, unspecified whether traumatic 08/13/2024 Telephone [facility] [address] [place] [address] Pepper Morgan MD 08/07/2024 Telephone [facility] [address] [place] [address] Pepper Morgan MD Medication error 08/02/2024 MARIO IP Outreach [facility] Accountable Care Organization [address] [place] [address] Bruna Vidal MA 07/31/2024 1:10 PM COMPLIANCE ASSOCIATE - 07/31/2024 2:40 PM COMPLIANCE ASSOCIATE Surgery [facility] Cardiac Catheterization Lab [address] [place] [address] Stalin Arauz MD PERC JUDY CLOSE W/IMPLANT [id number] 07/31/2024 10:52 AM COMPLIANCE ASSOCIATE Anesthesia Event [facility] Cardiac Catheterization Lab [address] [place] [address] Maria Guadalupe Talavera MD Barnhart, Lynlee Jo, NP 07/31/2024 9:00 AM COMPLIANCE ASSOCIATE - 07/31/2024 11:59 PM COMPLIANCE ASSOCIATE Hospital Encounter [facility] Cardiac Catheterization Lab [address] [place] [address] Discharge Disposition: Discharge to home or self care 07/31/2024 7:44 AM COMPLIANCE ASSOCIATE - 08/01/2024 12:24 PM COMPLIANCE ASSOCIATE Hospital Encounter [address] [address] Stalin Arauz MD Paroxysmal atrial fibrillation (HCC) Discharge Disposition: Discharge to home or self care 07/26/2024 Orders Only [facility] Non-invasive Cardiac Diagnostic Testing [address] [place] [address] Stalin Arauz MD Paroxysmal atrial fibrillation (HCC) (Primary Dx) 07/24/2024 Telephone [facility] [address] [place] [address] Pepper Morgan MD 07/15/2024 10:25 AM COMPLIANCE ASSOCIATE Lab [address] [address] Chronic heart failure with preserved ejection fraction (HCC) 07/15/2024 9:30 AM COMPLIANCE ASSOCIATE Office Visit [facility] at [address] [place] [address] Maude Harris NP Chronic atrial fibrillation (HCC) (Primary Dx); Chronic heart failure with preserved ejection fraction (HCC); Benign hypertension; Peripheral arterial disease; Paroxysmal atrial fibrillation (HCC) 06/26/2024 Telephone [facility] [address] [facility] [address] [place] [address] Pepper Morgan MD from Last 3 Months Immunizations Immunization Administration Dates Next Due COVID-19 mRNA (Lab21) 0.3 m L (30 mcg) vaccine (12 [...] The successful right hip replacement Dr. Mckenzie MA FLUORO GUIDED INJECTION HIP LEFT 01/28/2021 Left REPLACEMENT TOTAL KNEE Right TOTAL HIP ARTHROPLASTY 11/01/[address] Mckenzie, [facility]. IMPLANTABLE CARDIAC DEVICE 07/31/2024 N/A Procedure: PERC JUDY CLOSE W/IMPLANT [id number]; Surgeon: Stalin Arauz MD; Location: CARDIAC SIGN OUT CLERK; Service: Cardiovascular; Laterality: N/A; Medical devices from [...] Tobacco use 1-2ppd x 35yrs q uit - Hx of rheumatic fever Joint pain 04/2002 Basal cell carcinoma of nose 09/2008 Restless leg Hypertension GERD (gastroesophageal reflu x disease) PONV (postoperative nausea a nd vomiting) Motion sickness Arrhythmia A-fibrillation CHF (congestive heart failure) (HCC) Cough DVT (deep venous thrombosis) ([facility]) 1976 upper left arm near elbow--- Allergic rhinitis Lymphedema 12/06/2021 Esophageal dysphagia 11/24/2023 Iron deficiency anemia, unspecified 08/08/2019 Prediabetes 01/11/2024 Skin tear of right forearm w ithout complication 09/27/2023 Shortness of breath 04/21/2021 Acute lower GI bleeding 01/11/2024 Family History Medical History Relation Name Comments [...] 0.6 oz pur e alcohol) [facility] Utilities Answer Date Recorded In the past 12 months has e [employer], gas, oil, or water [employer] threatened to shut off services [...] attend chur ch or episcopal services? Never 04/11/2024 Do you belong to [...] slept in a alf (including now)? No 07/24/2023 Housing Stability Vital Sign Answer Neville e Recorded In the last 12 months, was t here a time when you were not able to pay the mortgage or rent on time? No 04/11/2024 In the past 12 months, how m any times have you moved where you were living? 0 04/11/2024 At any time in the past 12 m [facility], were you homeless or living in a alf (including now)? No 04/11/2024 Personal Safety Answer [...] on file Legal Sex Female 4:33 AM COMPLIANCE ASSOCIATE Gender Identity Not on file Sexual Orientation Not on file Occupation Industry Job Start Date Job End Date retired Not on file Not on file Not on file Obstetrics History Last Filed Vital Signs Vital Sign Reading Time Taken Comments Blood Pressure 117/89 09/03/2024 3:08 PM CDT Pulse 77 09/03/2024 3:08 PM CDT Temperature 36 C (96.8 F) 08/26/2024 3:51 PM CDT Respiratory Rate 18 09/03/2024 3:08 PM CDT Oxygen Saturation 99% 08/26/2024 3:51 PM CDT Inhaled Oxygen Concentration - - Weight 78.5 kg (173 lb) 09/03/2024 3:08 PM CDT Height 152.4 cm (5') 09/03/2024 3:08 PM CDT Body Mass Index 33.79 09/03/2024 3:08 PM CDT Plan of Treatment Health Maintenance Due Date Last Done Comments Hepatitis B Screening 11/24/1953 Covid-19 Vaccine (2023- 5 season) 2024 03/24/2023, 04/01/2022, 01/11/2022, Additional history exists Depression Screening 08/26/2025 08/26/2024, 07/13/2023, 07/13/2023, Additional history exists Fall Risk Assessment 08/26/2025 08/26/2024, 08/01/2024, 07/13/2023, Additional history exists Well Visit 65+ 08/26/2025 08/26/2024, 06/20, 06/08/2022, Additional history exists DTaP/Tdap/Td Vaccine (3 - Td or Tdap) 08/24/2031 08/23/2021, 05/18/2011 Pneumococcal vaccine 65+ Completed 016, 02/18/2015, 05/17/2002 Zoster Vaccine Completed 02/23/2021, 12/02/2020 Influenza Vaccine Completed 03/23/2024, , 03/24/2023, Additional history exists Goals Goal Patient Goal Type Associated Problems Recent Progress Patient-Stated? Author BH-Pain Behavioral Health Improving( 3:34 PM CDT) Domitila Gatson, XU Note: Patient will establish a comfort-function goal and identify the pain level that will allow the patient to perform desired activities and achieve an acceptable quality of life. Medical Devices Implanted Type Area Cardiac Rehabilitation Program Director Device Identifier Shelf Expiration Date Model / Serial / Lot [employer] [id number] [place] 52mm Sector Hip Shell Acetabular Gription Sterile Latex Free - [id number] Implanted:Qty: 1 on 07/10/2019 by Puma Mckenzie MD at [facility] Right: Hip [employer] 05/18/2029 [id number] / / [id number] [employer] [id number] [place] 52mm 36mm Hip Neutral Liner Acetabular Altrx Sterile Latex Free - [id number] Implanted:Qty: 1 on 07/10/2019 by Puma Mckenzie MD at [facility] Right: Hip [employer] 04/18/2024 [id number] / / [id number] [employer] 1217-25-500 [place] 6.5mm 25mm Acetabular Cancellous Screw Bone Sterile - [id number] Implanted:Qty: 1 on 07/10/2019 by Puma Mckenzie MD at [facility] Right: Hip [employer] 12/16/2028 1217-25-500 / / [id number] [employer] [id number] Articul/Ernesto 36mm Cementless Hip +1.5mm 12/14 Taper Head Femoral Latex Free - [id number] Implanted:Qty: 1 on 07/10/2019 by Puma Mckenzie MD at [facility] Right: Hip [employer] 03/18/2024 [id number] / / [id number] [employer] [id number] Actis Collared Hip /14 6 Standard Offset Stem Femoral - [id number] Implanted:Qty: 1 on 07/10/2019 by Puma Mckenzie MD at [facility] Right: Hip [employer] 06/18/2029 [id number] / / [id number] [employer] [place] 6.5mm 35mm Acetabular Cancellous Screw Bone Sterile 1217-35-500 - [id number] Implanted:Qty: 1 on 11/01/2021 by Puma Mckenzie MD at [facility] Left: Hip [employer] 08/17/2031 1217-35-500 / / [id number] [employer] [id number] [place] 52mm 36mm Hip Neutral Liner Acetabular Altrx Sterile Latex Free - [id number] Implanted:Qty: 1 on 11/01/2021 by Puma Mckenzie MD at [facility] Left: Hip [employer] 08/16/2026 [id number] / / [id number] [employer] [place] 52mm Sector Hip Shell Acetabular Gription Sterile Latex Free [id number] - [id number] Implanted:Qty: 1 on 11/01/2021 by Puma Mckenzie MD at [facility] Left: Hip [employer] [id number] 08/17/2031 [id number] / / [id number] [employer] [id number] Actis Collar Hip 7 High Offset Stem Femoral - [id number] Implanted:Qty: 1 on 11/01/2021 by Puma Mckenzie MD at [facility] Left: Hip [employer] [id number] 08/17/2031 [id number] / / [id number] [employer] Articul/Ernesto 36mm Cementless Hip +1.5mm 06/01 Taper Head Femoral Latex Free [id number] - [id number] Implanted:Qty: 1 on 11/01/2021 by Puma Mckenzie MD at [facility] Left: Hip [employer] 09/16/2026 [id number] / / [id number] [employer] Protege Gps Exprt 9mm .079in 60mm 80cm Otw Delivery System Self [id number] - [id number] Implanted:Qty: 1 on 02/18/2022 by Stalin Arauz MD at [facility] [employer] 10/22/2024 [id number] / / [id number] [employer] Angio-Seal Evolution 6fr Vascular Closure [id number] - [id number] Implanted:Qty: 1 on 02/18/2022 by Stalin Arauz MD at [facility] TerumDNA Direct Marshall 06/18/2022 [id number] / / [id number] [employer] Zilver Ptx 6mm 120mm 125cm Drug Elute Otw Delivery System [id number] - [id number] Implanted:Qty: 1 on 02/18/2022 by Stalin Arauz MD at [facility] [employer] Inc 10/21/2023 [id number] / / [id number] [employer] Zilver Ptx 6mm 100mm 125cm Otw Preload Delivery System Self [id number] - [id number] Implanted:Qty: 1 on 02/18/2022 by Stalin Arauz MD at [facility] [employer] 11/09/2023 [id number] / / [id number] Medtronic Inc Everflex Entrust 8mm 60mm 120cm Self Expand Triaxial Low Profile - [id number] Implanted:Qty: 1 on 02/18/2022 by Stalin Arauz MD at [facility] [employer] Inc 07/26/2024 [id number] / / [id number] Terumo Medical Marshall Angio-Seal Evolution 6fr Vascular Closure [id number] - [id number] Implanted:Qty: 1 on 03/24/2022 [facility]/18/[facility]22 [id number] / / [id number] West Vascular Occluder Cvasc Judy Flexible Braided Amplatzer Amulet 20mm Nitinol [id number] - [id number] Implanted:Qty: 1 on 07/31/2024 by Stalin Arauz MD at [facility] Vascular 12/16/2028 [id number] [id number] / / [id number] Procedures Procedure Name Priority Date/Time Associated Diagnosis Comments CLINICAL PATHOLOGY REPORT Routine 09/16/2024 1:08 PM CDT IRON PROFILE W/ IBC Routine 09/16/2024 1 :08 PM CDT EGFR Routine 09/16/2024 1:08 PM CDT PHOSPHORUS Routine 09/16/2024 1:08 PM CDT BILIRUBIN, DIRECT Routine 09/16/2024 1:0 8 PM CDT COMPREHENSIVE METABOLIC PANEL Routine 09/16/2024 1:08 PM CDT DIFFERENTIAL AUTO Routine 09/16/2024 1:0 8 PM CDT C3 COMPLEMENT Routine 09/16/2024 1:08 PM CDT PROTEIN ELECTROPHORESIS, WITH REFLEX, SERUM Routine 09/16/2024 1:08 PM CDT ERYTHROCYTE SEDIMENTATION RATE Routine 09/16/2024 1:08 PM CDT IRON Routine 09/16/2024 1:08 PM CDT T4, FREE Routine 09/16/2024 1:08 PM CDT TSH Routine 09/16/2024 1:08 PM CDT PTH Routine 09/16/2024 1:08 PM CDT PROTEIN / CREATININE RATIO, URINE, RANDOM Routine 09/16/2024 1:08 PM CDT CBC WITH AUTO DIFFERENTIAL Routine 09/16/2024 1:08 PM CDT HEMOGLOBIN A1C Routine 09/16/2024 1:08 PM CDT URINALYSIS AND REFLEX TO MICROSCOPIC Routine 09/16/2024 1:08 PM CDT US KIDNEY COMPLETE Schedule Routine, Read Routine (OP Routine) 08/21/2024 3:38 PM COMPLIANCE ASSOCIATE Stage 3 chronic kidney disease, unspecified whether stage 3a or 3b CKD (HCC) Essential (primary) hypertension Chronic systolic (congestive) heart failure (HCC) Hypertensive chronic kidney disease with stage 1 through stage 4 chronic kidney disease, or unspecified chronic kidney disease VT ARTHROCENTESIS ASPIR&/INJ MAJOR JT/BURSA W/O US Routine 08/15/2024 1:15 PM COMPLIANCE ASSOCIATE 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 TRANSTHORACIC ECHO (TTE) LIMITED/FOLLOW UP W LTD DOPPLER/CF WO CONTRAST Routine 08/01/2024 8:20 AM COMPLIANCE ASSOCIATE EGFR Routine 08/01/2024 7:55 AM COMPLIANCE ASSOCIATE DIFFERENTIAL AUTO Routine 08/01/2024 7:5 5 AM COMPLIANCE ASSOCIATE CBC WITH AUTO DIFFERENTIAL Routine 08/01/2024 7:55 AM COMPLIANCE ASSOCIATE MAGNESIUM Routine 08/01/2024 7:55 AM COMPLIANCE ASSOCIATE BASIC METABOLIC PANEL Routine 08/01/2024 7:55 AM COMPLIANCE ASSOCIATE ECG 12-LEAD Routine 08/01/2024 7:25 AM COMPLIANCE ASSOCIATE APTT Routine 07/31/2024 6:15 PM COMPLIANCE ASSOCIATE PROTIME-INR Routine 07/31/2024 6:15 PM COMPLIANCE ASSOCIATE PERC JUDY CLOSURE W/IMPLANT (WATCHMAN) [id number] Routine 07/31/2024 11:48 AM COMPLIANCE ASSOCIATE Paroxysmal atrial fibrillation (HCC) TRANSESOPHAGEAL ECHO (AZEEM) W DOPPLER/CF WO CONTRAST Routine 07/31/2024 11:45 AM COMPLIANCE ASSOCIATE POCT ACTIVATED CLOTTING TIME, HIGH RANGE Routine 07/31/2024 11:30 AM COMPLIANCE ASSOCIATE VT AN ELECTIVE ENDOTRACHEAL AIRWAY Routine 07/31/2024 11:15 AM COMPLIANCE ASSOCIATE ECG 12-LEAD Routine 07/31/2024 9:15 AM COMPLIANCE ASSOCIATE PREPARE RBC STAT 07/31/2024 8:59 AM COMPLIANCE ASSOCIATE EGFR Routine 07/31/2024 8:41 AM COMPLIANCE ASSOCIATE DIFFERENTIAL AUTO Routine 07/31/2024 8:4 1 AM COMPLIANCE ASSOCIATE TYPE AND SCREEN Timed 07/31/2024 8:41 AM COMPLIANCE ASSOCIATE COMPREHENSIVE METABOLIC PANEL Routine 07/31/2024 8:41 AM COMPLIANCE ASSOCIATE CBC WITH AUTO DIFFERENTIAL Routine 07/31/2024 8:41 AM COMPLIANCE ASSOCIATE EGFR Routine 07/15/2024 10:29 AM COMPLIANCE ASSOCIATE Chronic heart failure with preserved ejection fraction (HCC) BASIC METABOLIC PANEL Routine 07/15/2024 10:29 AM COMPLIANCE ASSOCIATE Chronic heart failure with preserved ejection fraction (HCC) PRO B-TYPE NATRIURETIC PEPTIDE Routine 07/15/2024 10:29 AM COMPLIANCE ASSOCIATE Chronic heart failure with preserved ejection fraction (HCC) from Last 3 Months Results * Clinical pathology report (09/16/2024 1:08 PM CDT) Miscellaneous 09/16/2024 1:0 8 PM CDT 09/17/2024 8:39 AM CDT Narrative 09/17/2024 4:43 PM CDT [facility] results best viewed via link to PDF [facility] Department of Pathology [address] [place], [place] [id number] Final Report Note to Patients: This report may contain [...] can answer questions and explain the details. Patient Name: TESS BENEDICT I. [address]: [address] [place] [address]- Gender: F : 1935 (Age: 88) Service: Location: Hospital #: [id number] Patient Type: [facility] EP ANCILLARY Taken: 09/16/2024 Received: 09/17/2024 Accessioned: 09/17/2024 Physician(s): Tristin Guillen M.D. [facility] Specimen(s) Received A: Blood (serum) Serum Protein ElectrophoresisReported:09/17/2024 Interpretation: Serum Protein Electrophoresis: Normal serum protein electrophoresis pattern. Comment: Serum Protein Electrophoresis: There are no significant abnormalities of the protein fractions. See Epic and/or separate report for protein fraction table. Lonny Rivera MD PhDReport Electronically Reviewed and Signed Out By Lonny Rivera MD PhD 09/17/2024 16:42:33 The performance characteristics of some immunohistochemical stains, fluorescence in-situ hybridization tests and immunophenotyping by flow cytometry cited in this report (if any) were determined by the Surgical Pathology Department at [facility] as part of an ongoing quality assurance assessor program and in compliance with federally mandated regulations drawn from the Clinical Laboratory Improvement Act of 1988 (CLIA '88). Some of these tests rely on the use of analyte specific reagents and are subject to specific labeling requirements by the US Food and Drug Administration. Such diagnostic tests may only be performed in a facility that is certified by the Department of Health and Human Services as a high complexity laboratory under CLIA '88. The FDA has determined that such clearance or approval is not necessary. This test is used for clinical purposes. It should not be regarded as investigational or for research. Nevertheless, federal rules concerning the medical use of analyte specific reagents require that the following disclaimer be attached to the report: This test was developed and its performance characteristics determined by the Surgical Pathology Department [facility]. It has not been cleared or approved by the U. S. Food and Drug Administration. REPORT IMAGES AND SCANNED DOCUMENTS, IF INCLUDED, ONLY VIEWABLE IN PDF VERSION OF REPORTe o us Tristin Guillen MD LAB PATHOLOGY ORDERABLES Farzana l Result * (ABNORMAL) eGFR (09/16/2024 1:08 PM CDT) eGFR 27(L) >=60 mL/min/1. 73 m2 [...] interpretive data was last reviewed 2021. Blood 09/16/2024 1:08 PM CDT 09/16/2024 2:38 PM CDT us Tristin Guillen MD LAB BLOOD ORDERABLES Final Re sult [facility] ([place]) 1 [facility] Department [place] [address] * (ABNORMAL) Differential, auto (09/16/2024 1:08 PM CDT) Neutrophil abs 9.4(H) 1.5 - 6.5 K/cumm Imm gran abs 0.1 0.0 - 0.1 K/cumm [facility] ([place]) Lymphocyte abs 0.8 0.8 - 3.3 K/cumm [facility] ([place]) Monocyte abs 1.0(H) 0.2 - 0.8 K/cumm [facility] ([place]) Eosinophil abs 0.2 0.0 - 0.5 K/cumm [facility] ([place]) Basophil abs 0.0 0.0 - 0.1 K/cumm [facility] ([place]) Neutrophil pct 81.5 % [facility] ([place]) Comment: Interpretive [...] was last revised on 2017. Lymphocyte pct 7.2 % [facility] ([place]) Comment: Interpretive Data Percent cell count reference ranges are not reported, since discordance with absolute values may lead to misinterpretation of CBC data. Current Interpretive Data was last revised on 2017. Monocyte pct 8.2 % [facility] ([place]) Comment: Interpretive Data Percent cell count reference ranges are not reported, since discordance with absolute values may lead to misinterpretation of CBC data. Current Interpretive Data was last revised on 2017. Eosinophil pct 1.6 % [facility] ([place]) Comment: Interpretive Data Percent cell count reference ranges are not reported, since discordance with absolute values may lead to misinterpretation of CBC data. Current Interpretive Data was last revised on 2017. Basophil pct 0.3 % [facility] ([place]) Comment: Interpretive Data Percent cell count reference ranges are not reported, since discordance with absolute values may lead to misinterpretation of CBC data. Current Interpretive Data was last revised on 2017. Blood 09/16/2024 1:08 PM CDT 09/16/2024 2:38 PM CDT Tristin Guillen MD LAB BLOOD ORDERABLES Final Re sult Performing Organization Address City/[facility]/ZIP Co de Phone Number [facility] ([place]) 1 [facility] [place] [address] * (ABNORMAL) Iron profile w/ IBC (09/16/2024 1:08 PM CDT) Iron 36 35 - 145 mcg/dL TIBC 404(H) 250 - 400 mcg/dL [facility] ([place]) Transferrin saturation 9(L) 20 - 50 % [facility] ([place]) Blood 09/16/2024 1:08 PM CDT 09/16/2024 2:38 PM CDT us Tristin Guillen MD LAB BLOOD ORDERABLES Final Re sult Performing Organization Address [facility] de Phone Number [facility] ([place]) 1 [facility] [place] [address] * (ABNORMAL) Urinalysis reflex to microscopic (09/16/2024 1:08 PM CDT) Color, ur Straw Yellow Clarity, ur Clear Clear [facility] ([place]) Specific gravity, ur 1.006 1.003 - 1.030 [facility] ([place]) pH, urine 7.0 [facility] ([place]) Comment: Interpretive Data U rine pH is affected by diet, medications, systemic acid-base disturbances, and renal tubular function. pH may affect urinary stone formation. For example, urine pH below 6.0 may help reduce the tendency for calcium phosphate stones and pH greater than 6.0 may reduce the tendency for uric acid stone formation. Source: [facility] Current Interpretive Data was last revised on 2017 Protein, ur ql Negative Negative [facility] ([place]) Glucose, ur ql 1+(A) Negative [facility] ([place]) Ketones, ur Negative Negative [facility] ([place]) Bilirubin, ur Negative Negative [facility] ([place]) Blood, ur Negative Negative [facility] ([place]) Urobilinogen, ur <2.0 <2.0 mg/dL [facility] ([place]) Nitrite, ur Negative Negative [facility] ([place]) Leukocyte esterase, ur Negative Negative [facility] ([place]) UA reflex comment Reflex conditions for microscopic UA not met. [facility] ([place]) Urine 09/16/2024 1:08 PM CDT 09/16/2024 1:56 PM CDT us Tristin Guillen MD LAB URINE ORDERABLES Final Re sult [facility] ([place]) 1 [facility] Department [place] [address] * (ABNORMAL) CBC with auto differential (09/16/2024 1:08 PM CDT) WBC 11.6(H) 3.8 - 9.9 K/cumm Hgb 13.0 11.9 - 15.5 g/dL [facility] ([place]) Hct 40.4 35.6 - 45.5 % [facility] ([place]) Plt 347 150 - 400 K/cumm [facility] ([place]) MPV 9.3 9.1 - 12.3 fL [facility] ([place]) RBC 4.95 3.90 - 5.20 M/cumm [facility] ([place]) MCV 81.6 81.3 - 96.4 fL [facility] ([place]) MCH 26.3(L) 27.1 - 33.3 pg [facility] ([place]) MCHC 32.2(L) 32.3 - 35.7 g/dL [facility] ([place]) RDW CV 16.0(H) 11.1 - 14.9 % [facility] ([place]) RDW SD 47.4 35.7 - 48.1 fL [facility] ([place]) NRBC abs 0.00 0.00 - 0.01 K/cumm [facility] ([place]) Blood 09/16/2024 1:08 PM CDT 09/16/2024 2:38 PM CDT Tristin Guillen MD LAB BLOOD ORDERABLES Final Re sult Performing Organization Address [facility] Co de Phone Number [facility] ([place]) 1 [facility] [place] [address] * (ABNORMAL) Protein / creatinine ratio, urine, random (09/16/2024 1:08 PM CDT) Protein, ur, quant <5.0 mg/dL Comment: Interpretive Data No reference range established. Current interpretive data was last revised 2018. Creatinine Ur 15.8 mg/dL [facility] ([place]) Comment: Interpretive Data No reference range established. Current interpretive data was last revised 2018. Protein/creatinin e ratio <316.5(H) 0.0 - 180.0 mg/g CR [facility] ([place]) Urine 09/16/2024 1:08 PM CDT 09/16/2024 1:56 PM CDT Tristin Guillen MD LAB URINE ORDERABLES Final Re sult Performing Organization Address [facility]/ZIP Co de Phone Number [facility] ([place]) 1 [facility] [place] [address] * (ABNORMAL) Erythrocyte sedimentation rate (09/16/2024 1:08 PM CDT) Erythrocyte sedimentation rate 32(H) 1 - 30 mm/hr Blood 09/16/2024 1:08 PM CDT 09/16/2024 2:38 PM CDT Tristin Guillen MD LAB BLOOD ORDERABLES Final Re sult [facility] ([place]) 1 [facility] [place] [address] * C3 complement (09/16/2024 1:08 PM CDT) Complement C3 156 90 - 180 mg/dL Comment:Testing performed by : [facility], [address] [place] [address], [place]., [address] Blood 09/16/2024 1:08 PM CDT 09/16/2024 5:54 PM CDT Tristin Guillen MD LAB BLOOD ORDERABLES Final Re sult Performing Organization Address [facility]/ZIP Co de Phone Number [facility] ([place]) 1 [facility] [place] [address] * TSH (09/16/2024 1:08 PM CDT) Thyroid Stimulating Hormone 3.53 0.30 - 4.20 mcIUnit/mL Blood 09/16/2024 1:08 PM CDT 09/16/2024 2:38 PM CDT us Tristin Guillen MD LAB BLOOD ORDERABLES Final Re sult [facility] ([place]) 1 [facility] [place] [address] * T4, free (09/16/2024 1:08 PM CDT) Free T4 1.53 0.90 - 1.70 ng/dL Blood 09/16/2024 1:08 PM CDT 09/16/2024 2:38 PM CDT us Tristin Guillen MD LAB BLOOD ORDERABLES Final Re sult [facility] ([place]) 1 [facility] [place] [address] * Phosphorus (09/16/2024 1:08 PM CDT) Pathologist [facility] Phosphorus, pl 4.2 2.3 - 4.5 mg/dL Blood 09/16/2024 1:08 PM CDT 09/16/2024 2:38 PM CDT Tristin Guillen MD LAB BLOOD ORDERABLES Final Re sult [facility] ([place]) 1 [facility] [place] [address] * (ABNORMAL) PTH (09/16/2024 1:08 PM CDT) [facility] PTH 125(H) 15 - 65 pg/mL Blood 09/16/2024 1:08 PM CDT 09/16/2024 2:38 PM CDT Tristin Guillen MD LAB BLOOD ORDERABLES Final Re sult Performing Organization Address [facility]/ZIP Co de Phone Number [facility] ([place]) 1 [facility] [place] [address] * (ABNORMAL) Iron level (09/16/2024 1:08 PM CDT) [facility] Iron 33(L) 35 - 145 mcg/dL Blood 09/16/2024 1:08 PM CDT 09/16/2024 2:38 PM CDT Tristin Guillen MD LAB BLOOD ORDERABLES Final Re sult Performing Organization Address City/[facility]/ZIP Co de Phone Number [facility] ([place]) 1 [facility] [place] [address] * Hemoglobin A1c (09/16/2024 1:08 PM CDT) [facility] Hgb A1C 5.5 4.0 - 5.6 % Estimated Average Glucose 111 mg/dL [facility] ([place]) Comment: The ADA recommends reporting an estimated Average Glucose (eAG) with all Hemoglobin A1c results using the equation derived from a study of 507 normal and diabetic adults. Minority populations were underrepresented and children were not included. (Diabetes Care 31:2499-4802, 2008). The eAG is not equivalent to a fasting glucose. Blood 09/16/2024 1:08 PM CDT 09/16/2024 2:38 PM CDT us Tristin Guillen MD LAB BLOOD ORDERABLES Final Re sult [facility] ([place]) 1 [facility] [place] [address] * Bilirubin, direct (09/16/2024 1:08 PM CDT) Bilirubin, direct 0.1 0.1 - 0.3 mg/dL Blood 09/16/2024 1:08 PM CDT 09/16/2024 2:38 PM CDT Tristin Guillen MD LAB BLOOD ORDERABLES Final Re sult Performing Organization Address [facility]/ZIP Co de Phone Number [facility] ([place]) 1 [facility] [place] [address] * (ABNORMAL) Comprehensive metabolic panel (09/16/2024 1:08 PM CDT) Sodium 127(L) 135 - 145 mmol/L Potassium, pl 3.2(L) 3.3 - 4.9 mmol/L [facility] ([place]) Chloride 83(L) 97 - 110 mmol/L [facility] ([place]) CO2 28 22 - 32 mmol/L [facility] ([place]) Anion gap 16(H) 2 - 15 mmol/L [facility] ([place]) BUN 78(H) 6 - 25 mg/dL [facility] ([place]) Creatinine 1.78(H) 0.60 - 1.10 mg/dL [facility] ([place]) Glucose 94 70 - 199 mg/dL [facility] ([place]) [...] 5.0 g/dL [facility] ([place]) Alk phos 135(H) 40 - 130 Units/L [facility] ([place]) ALT 7 7 - 45 Units/L [facility] ([place]) AST 13 10 - 45 Units/L [facility] ([place]) Blood 09/16/2024 1:08 PM CDT 09/16/2024 2:38 PM CDT us Tristin Guillen MD LAB BLOOD ORDERABLES Final Re sult [facility] ([place]) 1 [facility] Department [place] [address] * US Kidney Complete (08/21/2024 3:38 PM COMPLIANCE ASSOCIATE) Anatomical Region Laterality Modality Kidney N/A Ultrasound 08/27/2024 6:48 AM CDT Narrative 08/27/2024 6:49 AM CDT EXAM DESCRIPTION: US KIDNEY COMPLETE REASON FOR STUDY: n18.30 ckd stage 3 unspecified, i10 hypertension, i50.22 chronic systolic chf, i12.9 hypertensive ckd TECHNIQUE: Ultrasound of the kidneys and urinary bladder was performed with grayscale imaging. COMPARISON: CT abdomen and pelvis 12/22/2022. FINDINGS: RIGHT KIDNEY: The right kidney measures 8.2 cm in length. There is no hydronephrosis. There is normal cortical thickness and echogenicity. LEFT KIDNEY: The left kidney measures 9 cm in length. There is no hydronephrosis. There is normal cortical thickness and echogenicity. URINARY BLADDER: The urinary bladder, as visualized, appears unremarkable. The bilateral ureteral jets are visualized. OTHER: No other additional findings. IMPRESSION: Right kidney slightly small in size, otherwise normal renal ultrasound. THIS IS AN ELECTRONICALLY VERIFIED FINAL REPORT 08/27/2024 6:49 AM - Electronically signed by José Miguel Case M.D. CH: Report ID: [id number] Reading Location: [place] [address] Procedure Note José Miguel Case Jr., MD - 08/27/2024 EXAM DESCRIPTION: US KIDNEY COMPLETE REASON FOR STUDY: n18.30 ckd stage 3 unspecified, i10 hypertension, i50.22 chronic systolic chf, i12.9 hypertensive ckd TECHNIQUE: Ultrasound of the kidneys and urinary bladder was performedwith grayscale imaging. COMPARISON: CT abdomen and pelvis 12/22/2022. FINDINGS: RIGHT KIDNEY: The right kidney measures 8.2 cm in length. There is no hydronephrosis. There is normal cortical thickness and echogenicity. LEFT KIDNEY: The left kidney measures 9 cm in length. There is no hydronephrosis. There is normal cortical thickness and echogenicity. URINARY BLADDER: The urinary bladder, as visualized, appearsunremarkable. The bilateral ureteral jets are visualized. OTHER: No other additional findings. IMPRESSION: Right kidney slightly small in size, otherwise normal renal ultrasound. THIS IS AN ELECTRONICALLY VERIFIED FINAL REPORT 08/27/2024 6:49 AM - Electronically signed by José Miguel Case M.D. CH: ALEXUS Report ID: [id number] Reading Location: [place] [address] Tristin Guillen MD IMG US PROCEDURES Final Resul t * VT ARTHROCENTESIS ASPIR&/INJ MAJOR JT/BURSA W/O US (08/15/2024 1:15 PM COMPLIANCE ASSOCIATE) Narrative Jadyn Hobson PA - 08/15/2024 1:15 PM COMPLIANCE ASSOCIATE Jadyn Hobson PA 08/15/2024 2:12 PM Large [...] LTD DOPPLER/CF WO CONTRAST (08/01/2024 8:20 AM COMPLIANCE ASSOCIATE) Anatomical Region Laterality Modality Ultrasound 08/01/2024 6:46 AM COMPLIANCE ASSOCIATE Narrative 08/01/2024 9:39 AM COMPLIANCE ASSOCIATE [address], [place] [address] Limited Echocardiogram Report Patient Name: TESS BENEDICT I : 1935 Study Date: 08/01/2024 6:46:22 AM Gender: F Tech: Location: [place] [address] Ref Provider: STALIN ARAUZ Height(Cm): 152 BSA: [...] effusion. Electronically Signed By: Latanya Fitzgerald DO, DEANNA, FRANCISCO JAVIER, SOLANGE 08/01/2024 9:38:26 AM COMPLIANCE ASSOCIATE Procedure Note Latanya Fitzgerald DO - 08/01/2024 [place] [address] Limited Echocardiogram Report Patient Name: TESS BENEDICT I : 1935 Study Date: 08/01/2024 6:46:22 AM Gender: F Tech: Location: [id number] Ref Provider: STALIN ARAUZ Height(Cm): 152 BSA: [...] Latanya Fitzgerald DO, FACFord, FRANCISCO JAVIER, SOLANGE 08/01/2024 9:38:26 AM COMPLIANCE ASSOCIATE us Stalin Arauz MD CV ECHO PROCEDURES Final Result * (ABNORMAL) eGFR (08/01/2024 7:55 AM COMPLIANCE ASSOCIATE) Pathologist [facility] eGFR 43(L) >=60 mL/min/1. 73 m2 Comment: [...] last reviewed 2021. Blood 08/01/2024 7:55 AM COMPLIANCE ASSOCIATE 08/01/2024 8:13 AM COMPLIANCE ASSOCIATE us Stalin Arauz MD LAB BLOOD ORDERABLES Final Resu lt [facility] [address] Department [place] [address] * (ABNORMAL) Differential, auto (08/01/2024 7:55 AM COMPLIANCE ASSOCIATE) Pathologist [facility] Neutrophil abs 9.9(H) 1.5 - 6.5 K/cumm Imm gran abs 0.1 0.0 - 0.1 K/cumm [facility] Lymphocyte abs 0.6(L) 0.8 - 3.3 K/cumm [facility] Monocyte abs 0.8 0.2 - 0.8 K/cumm [facility] Eosinophil abs 0.0 0.0 - 0.5 K/cumm [facility] Basophil abs 0.0 0.0 - 0.1 K/cumm [facility] Neutrophil pct 86.7 % [facility] Comment: Interpretive Data Percent cell count reference ranges are not reported, since discordance with absolute values may lead to misinterpretation of CBC data. Current Interpretive Data was last revised on 2017. Imm gran pct 0.9 % [facility] Comment: Interpretive Data Percent cell count reference ranges are not reported, since discordance with absolute values may lead to misinterpretation of CBC data. Current Interpretive Data was last revised on 2017. Lymphocyte pct 5.2 % [facility] Comment: Interpretive Data Percent cell count reference ranges are not reported, since discordance with absolute values may lead to misinterpretation of CBC data. Current Interpretive Data was last revised on 2017. Monocyte pct 6.8 % [facility] Comment: Interpretive Data Percent cell count reference ranges are not reported, since discordance with absolute values may lead to misinterpretation of CBC data. Current Interpretive Data was last revised on 2017. Eosinophil pct 0.2 % [facility] Comment: Interpretive Data Percent cell count reference [...] revised on 2017. Blood 08/01/2024 7:55 AM COMPLIANCE ASSOCIATE 08/01/2024 8:13 AM COMPLIANCE ASSOCIATE us Stalin Arauz MD LAB BLOOD ORDERABLES Final Resu lt [facility] [address] Department [place] [address] * (ABNORMAL) CBC with auto differential (08/01/2024 7:55 AM COMPLIANCE ASSOCIATE) WBC 11.4(H) 3.8 - 9.9 K/cumm Hgb 12.2 11.9 - 15.5 g/dL [facility] Hct 41.7 35.6 - 45.5 % [facility] Plt 276 150 - 400 K/cumm [facility] MPV 9.4 9.1 - 12.3 fL [facility] RBC 4.78 3.90 - 5.20 M/cumm [facility] MCV 87.2 81.3 - 96.4 fL [facility] MCH 25.5(L) 27.1 - 33.3 pg [facility] MCHC 29.3(L) 32.3 - 35.7 g/dL [facility] RDW CV 17.1(H) 11.1 - 14.9 % CERNER CH RDW SD 53.6(H) 35.7 - 48.1 fL CERNER CH NRBC abs 0.00 0.00 - 0.01 K/cumm CERNER CH Blood 08/01/2024 7:55 AM COMPLIANCE ASSOCIATE 08/01/2024 8:13 AM COMPLIANCE ASSOCIATE Stalin Arauz MD LAB BLOOD ORDERABLES Final Resu lt Performing Organization Address [facility] Co de Phone Number [facility] [address] [facility] [place] [address] * Magnesium (08/01/2024 7:55 AM COMPLIANCE ASSOCIATE) Pathologist [facility] Magnesium 2.3 1.4 - 2.5 mg/dL Blood 08/01/2024 7:55 AM COMPLIANCE ASSOCIATE 08/01/2024 8:13 AM COMPLIANCE ASSOCIATE Stalin Arauz MD LAB BLOOD ORDERABLES Final Resu lt Performing Organization Address [facility] Co de Phone Number [facility] [address] Department [place] [address] * (ABNORMAL) Basic metabolic panel (08/01/2024 7:55 AM COMPLIANCE ASSOCIATE) Sodium 137 135 - 145 mmol/L Potassium, pl 4.1 3.3 - 4.9 mmol/L CERNER Chloride 99 97 - 110 mmol/L CERNER CH CO2 24 22 - 32 mmol/L CERNER CH Anion gap 14 2 - 15 mmol/L CERNER BUN 43(H) 6 - 25 mg/dL CERNER CH Creatinine 1.22(H) 0.60 - 1.10 mg/dL CERNER CH Glucose 100 70 - 199 mg/dL [facility] [...] Calcium 9.6 8.5 - 10.3 mg/dL [facility] Blood 08/01/2024 7:55 AM COMPLIANCE ASSOCIATE 08/01/2024 8:13 AM COMPLIANCE ASSOCIATE Stalin Arauz MD LAB BLOOD ORDERABLES Final Resu lt Performing Organization Address [facility] de Phone Number [facility] [address] Department [place] [address] * ECG 12 lead (08/01/2024 7:25 AM COMPLIANCE ASSOCIATE) 08/01/2024 7:25 AM COMPLIANCE ASSOCIATE Narrative [facility] - 08/01/2024 10:33 AM COMPLIANCE ASSOCIATE Vent Rate: 79 bpm RR Interval: 757 msec VT Interval: 0 msec QRS Duration: 73 msec QT Interval: 378 msec QTC Interval: 412 msec P-R-T [place]: 0 - 74 - 17 degrees IMPRESSION: ATRIAL FIBRILLATION WITH CONTROLLED VENTRICULAR RESPONSE Electronically Signed By: Collin Rich MD, [facility] Stalin Arauz MD ECG ORDERABLES Final Result Performing Organization Address [facility] de Phone Number [facility] [employer] [facility] * aPTT (07/31/2024 6:15 PM COMPLIANCE ASSOCIATE) aPTT 32 28 - 38 sec Comment: Interpretive Data Heparin therapeutic range: 66.0 - 100.0 seconds. Range based on correlation with therapeutic heparin activity range of 0.3 - 0.7 Units/mL. Current interpretive data was last revised on 2023. Blood 07/31/2024 6:15 PM COMPLIANCE ASSOCIATE 07/31/2024 6:19 PM COMPLIANCE ASSOCIATE Result [facility] Stalin Arauz MD LAB BLOOD ORDERABLES Final Resu Performing Organization Address [facility] de Phone Number [facility] [address] [address] [facility] [place] [address] * Protime-INR (07/31/2024 6:15 PM COMPLIANCE ASSOCIATE) PT 12.2 9.7 - 13.0 sec INR 1.13 0.90 - 1.20 [facility] Comment: Interpretive data Oral anticoagulant therapeutic ranges: Venous thromboembolism prophylaxis or treatment: 2.0-3.0 CARDIOLOGY Standard range: 2.0-3.0 High-intensity range: 2.5-3.5 Refer to indication-specific guidelines for appropriate target ranges for prosthetic heart valve replacement. Current interpretive data was last revised on 2019. Blood 07/31/2024 6:15 PM COMPLIANCE ASSOCIATE 07/31/2024 6:19 PM COMPLIANCE ASSOCIATE Result [facility] Stalin Arauz MD LAB BLOOD ORDERABLES Final Resu Performing Organization Address [facility] de Phone Number [facility] [address] [facility] [place] [address] * PERC JUDY CLOSURE W/IMPLANT (WATCHMAN) [id number] (07/31/2024 11:48 AM COMPLIANCE ASSOCIATE) Anatomical Region Laterality Modality X-Ray Angiograph y Narrative 07/31/2024 12:29 PM COMPLIANCE ASSOCIATE HISTORY 88y.o. old female with a history [...] accessed using the modified Seldinger technique. An 8-Tajik sheath was inserted. TRANSSEPTAL PUNCTURE The patient was kept therapeutically anticoagulated throughout the case. Transseptal puncture was made to gain access to the left atrium using a Foremost needle system. Transseptal catheterization was performed and guided by AZEEM see imaging note . The transseptal puncture was performed mid and inferior position. The wire was advanced through the left atrium and a double curved delivery sheath was placed over the wire. An Amplatzer delivery catheter TorqVue was advanced into the left atrial appendage. A 5-Tajik pigtail was used to gain access into [...] W DOPPLER/CF WO CONTRAST (07/31/2024 11:45 AM COMPLIANCE ASSOCIATE) Anatomical Region Laterality Modality Ultrasound Narrative 07/31/2024 12:35 PM COMPLIANCE ASSOCIATE Table formatting from the original result was not included. Result Text PROCEDURE Transesophageal ECHO for left atrial appendage closure INDICATION 88-year-old with paroxysmal Atrial fibrillation and [id number] score 6 , HAS BLED 4 with [...] Clotting Time, High Range (07/31/2024 11:30 AM COMPLIANCE ASSOCIATE) ACT 280(H) 87 - 138 sec Blood 07/31/2024 11:3 0 AM COMPLIANCE ASSOCIATE 07/31/2024 11:30 AM COMPLIANCE ASSOCIATE Stalin Arauz MD LAB BLOOD ORDERABLES Final Resu lt [facility] [address] Department [place] [address] * VT AN ELECTIVE ENDOTRACHEAL AIRWAY (07/31/2024 11:15 AM COMPLIANCE ASSOCIATE) Narrative Rosita Sharma AA - 07/31/2024 11:15 AM COMPLIANCE ASSOCIATE Rosita Sharma AA 07/31/2024 11:15 AM Airway [...] * ECG 12 lead (07/31/2024 9:15 AM COMPLIANCE ASSOCIATE) 07/31/2024 9:15 AM COMPLIANCE ASSOCIATE Narrative [facility] - 07/31/2024 1:18 PM COMPLIANCE ASSOCIATE Vent Rate: 80 bpm RR Interval: 743 msec VT Interval: 0 msec QRS Duration: 78 msec QT Interval: 389 msec QTC Interval: 425 msec P-R-T [place]: 0 - 91 - 23 degrees IMPRESSION: ATRIAL FIBRILLATION BORDERLINE RIGHT AXIS DEVIATION ABNORMAL RHYTHM ECG Electronically Signed By: Dr. Gardenia Harper [facility] us Stalin Arauz MD ECG ORDERABLES Final Result [facility] * Prepare RBC: 2 Units (07/31/2024 8:59 AM COMPLIANCE ASSOCIATE) Product code [id number] Unit Number [id number] 1-N CERNER CH Product Blood Type APOS CERNER CH Dispense Status RETURNED CERNER CH Product code [id number] CERNER CH Unit Number [id number] 7-Q CERNER CH Product Blood Type APOS CERNER CH Dispense Status RETURNED [facility] Blood 07/31/2024 8:59 AM COMPLIANCE ASSOCIATE Narrative [facility] - 08/04/2024 12:07 AM COMPLIANCE ASSOCIATE Specify Procedure:->LAAO Are special requirements needed? (All products are leukoreduced and CMV- safe)- >No Date required:-[id number] LRRBC # of [id number] Reasons:-Hold for procedure (specify procedure)} Stalin Arauz MD BLOOD BANK PRODUCT ORDERABLES F inal Result Performing Organization Address [facility] Co de Phone Number [facility] [address] [address] * (ABNORMAL) eGFR (07/31/2024 8:41 AM COMPLIANCE ASSOCIATE) eGFR 40(L) >=60 mL/min/1. 73 m2 Comment: [...] last reviewed 2021. Blood 07/31/2024 8:41 AM COMPLIANCE ASSOCIATE 07/31/2024 8:44 AM COMPLIANCE ASSOCIATE Stalin Arauz MD LAB BLOOD ORDERABLES Final Resu lt Performing Organization Address [facility]/ZIP Co de Phone Number [facility] [address] [place] [address] * (ABNORMAL) Differential, auto (07/31/2024 8:41 AM COMPLIANCE ASSOCIATE) Neutrophil abs 8.2(H) 1.5 - 6.5 K/cumm Imm gran abs 0.1 0.0 - 0.1 K/cumm CERNER CH Lymphocyte abs 0.6(L) 0.8 - 3.3 K/cumm CERNER Monocyte abs 0.6 0.2 - 0.8 K/cumm CERNER Eosinophil abs 0.3 0.0 - 0.5 K/cumm CERNER Basophil abs 0.1 0.0 - 0.1 K/cumm [facility] p[facility] 84.2 % CERNER Comment: Interpretive Data Percent cell count reference ranges are not reported, since discordance with absolute values may lead to misinterpretation of CBC data. Current Interpretive Data was last revised on 2017. Imm gran pct 1.0 % CERNER Comment: Interpretive Data Percent cell count reference ranges are not reported, since discordance with absolute values may lead to misinterpretation of CBC data. Current Interpretive Data was last revised on 2017. Lymphocyte pct 5.8 % CERNER Comment: Interpretive Data Percent cell count reference ranges are not reported, since discordance with absolute values may lead to misinterpretation of CBC data. Current Interpretive Data was last revised on 2017. Monocyte pct 5.7 % CERNER Comment: Interpretive Data Percent cell count reference ranges are not reported, since discordance with absolute values may lead to misinterpretation of CBC data. Current Interpretive Data was last revised on 2017. Eosinophil pct 2.7 % CERNER Comment: Interpretive Data Percent cell [...] revised on 2017. Blood 07/31/2024 8:41 AM COMPLIANCE ASSOCIATE 07/31/2024 8:45 AM COMPLIANCE ASSOCIATE Stalin Arauz MD LAB BLOOD ORDERABLES Final Resu lt [facility] [address] Department [place] [address] * (ABNORMAL) CBC with auto differential (07/31/2024 8:41 AM COMPLIANCE ASSOCIATE) WBC 9.8 3.8 - 9.9 K/cumm Hgb [...] K/cumm CERNER CH Blood 07/31/2024 8:41 AM COMPLIANCE ASSOCIATE 07/31/2024 8:45 AM COMPLIANCE ASSOCIATE Stalin Arauz MD LAB BLOOD ORDERABLES Final Resu lt [facility] [address] Department of [employer] [place], [place] [id number] * Type and screen (07/31/2024 8:41 AM COMPLIANCE ASSOCIATE) ABO Rh A Positive Ever, indirect Negative [facility]ER CH Blood 07/31/2024 8:41 AM COMPLIANCE ASSOCIATE 07/31/2024 8:52 AM COMPLIANCE ASSOCIATE Narrative [facility] - 07/31/2024 10:08 AM COMPLIANCE ASSOCIATE Has the patient had Daratumumab or Isatuximab in the past 6 months?->Unknown Stalin Arauz MD LAB BLOOD BANK TEST ORDERABLES Final Result [facility] [address] Department [place] [address] * (ABNORMAL) Comprehensive metabolic panel (07/31/2024 8:41 AM COMPLIANCE ASSOCIATE) Pathologist [facility] Sodium 137 135 - 145 mmol/L Potassium, [...] Units/L [facility]ER CH Blood 07/31/2024 8:41 AM COMPLIANCE ASSOCIATE 07/31/2024 8:44 AM COMPLIANCE ASSOCIATE us Stalin Arauz MD LAB BLOOD ORDERABLES Final Resu lt Performing Organization Address [facility]/ZIP Co de Phone Number [facility] [address] Department [place] [address] * (ABNORMAL) eGFR (07/15/2024 10:29 AM COMPLIANCE ASSOCIATE) eGFR 32(L) >=60 mL/min/1. 73 m2 Comment: [...] reviewed 2021. Blood 07/15/2024 10:2 9 AM COMPLIANCE ASSOCIATE 07/15/2024 11:05 AM COMPLIANCE ASSOCIATE us Maude Harris NP LAB BLOOD ORDERABLES Fi nal Result [facility] ([place]) 1 [facility] Department [place] [address] * (ABNORMAL) Pro B-type natriuretic peptide (07/15/2024 10:29 AM COMPLIANCE ASSOCIATE) NT-proBNP 4,320(H) <=450 pg/mL Comment: Interpretive Comments: [...] Date: 2018. Blood 07/15/2024 10:2 9 AM COMPLIANCE ASSOCIATE 07/15/2024 11:05 AM COMPLIANCE ASSOCIATE Maude Harris NP LAB BLOOD ORDERABLES nal Result [facility] 1 [facility] Department [place] [address] * (ABNORMAL) Basic metabolic panel (07/15/2024 10:29 AM COMPLIANCE ASSOCIATE) Sodium 134(L) 135 - 145 mmol/L Potassium, pl 4.1 3.3 - 4.9 mmol/L [facility] ([place]) Chloride 90(L) 97 - 110 mmol/L [facility] ([place]) CO2 33(H) 22 - 32 mmol/L [facility] ([place]) Anion gap 11 2 - 15 mmol/L [facility] ([place]) BUN 67(H) 6 - 25 mg/dL [facility] ([place]) Creatinine 1.57(H) 0.60 - 1.10 mg/dL [facility] ([place]) Glucose 99 70 - 199 mg/dL [facility] ([place]) Comment: Interpretive Data Fasting glucose [...] Calcium 10.0 8.5 - 10.3 mg/dL [facility] ([place]) Blood 07/15/2024 10:2 9 AM COMPLIANCE ASSOCIATE 07/15/2024 11:05 AM COMPLIANCE ASSOCIATE us Maude Harris NP LAB BLOOD ORDERABLES nal Result [facility] ([place]) 1 [facility] Department [place] [address] from Last [address] [place] [address] MEDICARE [facility] MEDICARE MEDICARE [facility] MEDICARE [facility] MEDICARE [facility] MEDICARE SUPPLEMENT Advance Directives For more information, please contact: [phone] Documents on File Type Date Recorded 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 Expl 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 ADVANCE DIRECTIVE 05/14/2019 1:34 PM [...] 7:42 PM 12/30/2022 3:56 PM Care Teams Party Plan Selling Distributor Relationship Specialty Start Date End Date Pepper Morgan MD PCP - General 09/16/16 Hank Garibay MD [address] [place] [address] [place] [address] Surgeon Orthopedic Surgery 03/27/17 Jacky Murry MD [address] [place] [address] Ophthalmology 03/27/17 Puma Mckenzie MD [address] [place] [facility] [address] [place] [address] Surgeon Orthopedic Surgery 07/11/19 Neha Jackson, PT Physical Therapist Physical Therapy 12/01/21 Stalin Arauz MD Consulting Physician Cardiology 12/08/22 Tiffany Rojas PA [address] [place] [address] Gastroenterology 12/30/22 Klaus Deshpande MD [address] [place] [address] Consulting Physician Neurology 06/13/23
--- OUTSIDE RECORDS SUMMARY | 2024-09-18 15:38 | XMS_ITS | Clinical Summary ---
Author Organization [facility] Facility Address [address] [place] [address] Care Team Providers Care Sheet Pile Driver Operator Name Role Phone Maude Harris NET DEVELOPER PROGRAMMER-IRONING WORKER Primary Care Provider Unavailable Allergies Active Allergy [...] and 500 mg in the evening. Active Encounters Date Type Department Care Team Description 09/16/2024 Documentation Only [facility] [address] [place] [address] Tristin Guillen MD 09/16/2024 Documentation Only [facility] [place] [address] Tristin Guillen MD 08/19/2024 11:30 AM DIRECTOR PLANS Office Visit [facility] [place] [address] Tristin Guillen MD Stage 3 chronic kidney disease, not otherwise specified (HCC) (Primary Dx); Hypertension; Chronic systolic congestive heart failure (HCC); Hypertensive chronic kidney disease, unspecified, with chronic kidney disease stage I through stage IV, or unspecified 08/19/2024 Documentation Only [facility] [place]. [address] [place] [address] Neha Cuba MA from Last 3 Months Family History Medical [...] Comments Blood Pressure 116/64 08/19/2024 11:33 AM DIRECTOR PLANS Pulse 61 08/19/2024 11:33 AM DIRECTOR PLANS Temperature 36.3 C (97.3 F) 08/19/2024 11:33 AM DIRECTOR PLANS Respiratory Rate - - Oxygen Saturation 95% 08/19/2024 11:33 AM DIRECTOR PLANS Inhaled Oxygen Concentration - - Weight 81.9 kg (180 lb 8 oz) 08/19/2024 11:33 AM DIRECTOR PLANS Height 152.4 cm (5') 08/19/2024 11:33 AM DIRECTOR PLANS Body Mass Index 35.25 08/19/2024 11:33 AM DIRECTOR PLANS Plan of Treatment Upcoming Encounters Date Type Department Care Team (Late st Contact Info) Description 10/04/2024 12:15 PM CDT Office Visit [facility] [place]. [address] [address] [place] [address] Tristin Guillen MD [address] [place] [address] Health Maintenance Due Date Last Done Comments Pneumococcal Vaccine: 65+ Years Completed 04/26/2016, 02/18/2015, 05/17/2002 Influenza Vaccine Completed 03/23/2024, , 03/24/2023, Additional history exists Hepatitis B Vaccine Aged Out No longe r eligible based on patient's age to complete this topic Insurance MEDICARE Care Teams Sheet Pile Driver Operator Relationship Specialty Start Date End Date Maude Harris, NET DEVELOPER PROGRAMMER-IRONING WORKER [address] [place] [address] PCP - General Exhibit Cleaner 06/05/24
--- OUTSIDE RECORDS SUMMARY | 2024-09-18 15:39 | XMS_ITS | Referral Summary ---
Author Organization [facility] Address [address] [place] [address] Care Team Providers Care Human Factors Specialist Name Role Phone Pepper Morgan MD Primary Care Provider + [phone] Hank Garibay MD Unavailable [phone] Jacky Murry MD Unavailable [phone] Puma Mckenzie MD Unavailable [phone] Neha Jackson PT Unavailable Unavailable Stalin Arauz MD Unavailable [phone] Tiffany Rojas Unavailable [phone] Klaus Deshpande MD Unavailable [phone] Encounters Date Type Department Care Team Description 09/18/2024 Telephone [facility] 1 [facility] [address] [place] [address] Pepper Morgan MD Blood in Urine 09/18/2024 Orders Only [employer] [facility] [employer] at [address] [place] [address] Stalin Arauz MD Presence of Amulet left atrial appendage closure device (Primary Dx) 09/16/2024 Telephone [place] [employer] at [address] [place] [address] Mckenzie Reyes MA 09/16/2024 1:00 PM CDT Lab [facility] [address] [place] [address] Arrived 09/16/2024 11:00 AM CDT Orders Only [facility] [address] [place] [address] 09/09/2024 9:00 AM CDT Orders Only [facility] [address] [place] [address] 09/03/2024 2:45 PM CDT Office Visit [place] [employer] at [address] [place] [address] Maude Harris NP Chronic atrial fibrillation (HCC) (Primary Dx) 09/02/2024 9:00 AM CDT Orders Only [facility] Wound Care [facility] [address] [place] [address] ISTAP type 3 skin tear of left upper arm 08/26/2024 5:01 PM CDT - 08/26/2024 6:34 PM CDT Emergency [facility] Emergency Department [address] [place] [address] Laceration of left upper extremity, initial encounter (Primary Dx) Discharge Disposition: Discharge to home or self care 08/26/2024 1:00 PM CDT Office Visit [facility] 1 [facility] [address] [place] [address] Pepper Morgan MD Annual physical exam (Primary Dx); At high risk for injury related to fall; Right leg weakness; Spinal stenosis of lumbar region with neurogenic claudication; Essential tremor; Gouty arthritis of foot; Gait disturbance; ISTAP type 3 skin tear of left upper arm; Atherosclerosis of [place] arteries of extremities with intermittent claudication, bilateral legs; Class 1 obesity with serious comorbidity and body mass index (BMI) of 33.0 to 33.9 in adult, unspecified obesity type; Acute on chronic heart failure with preserved ejection fraction (HCC); Benign hypertension; Chronic atrial fibrillation (HCC); Presence of Amulet left atrial appendage closure device; group home current use of anticoagulant; Mild persistent asthma without complication; History of malignant melanoma; Purpura; CKD stage 3b, GFR 30-44 ml/min (HCC); Chronic GERD; Chronic blood loss anemia; Bleeding hemorrhoids; Bariatric surgery status; Immunization counseling; Chronic bronchitis, unspecified chronic bronchitis type (HCC) 08/21/2024 2:45 PM CYBER INTEL PLANNER - 08/21/2024 11:59 PM CYBER INTEL PLANNER Hospital Encounter [facility] [address] [place] [address] Stage 3 chronic kidney disease, unspecified whether stage 3a or 3b CKD (HCC); Essential (primary) hypertension; Chronic systolic (congestive) heart failure (HCC); Hypertensive chronic kidney disease with stage 1 through stage 4 chronic kidney disease, or unspecified chronic kidney disease Discharge Disposition: Discharge to home or self care 08/15/2024 Orders Only [facility] [address] [place] [address] [address] [place] [address] Jadyn Hobson PA 08/15/2024 Orders Only [facility] [address] [place] [address] [address] [place] [address] Jadyn Hobson PA Osteoarthritis of right glenohumeral joint (Primary Dx); Right rotator cuff tear arthropathy; Complete tear of right rotator cuff, unspecified whether traumatic 08/15/2024 1:15 PM CYBER INTEL PLANNER Office Visit [facility] Medicine [address] [place] [address] [address] [place] [address] Jadyn Hobson PA Osteoarthritis of right glenohumeral joint (Primary Dx); Right rotator cuff tear arthropathy 08/13/2024 Telephone [facility] 1 [facility] [address] [place] [address] Pepper Morgan MD 08/07/2024 Telephone [facility] 1 [facility] [address] [place] [address] Pepper Morgan MD Medication error 08/02/2024 MARIO IP Outreach [facility] Accountable Care Organization [address] [place] [address] Bruna Vidal MA 07/31/2024 7:44 AM CYBER INTEL PLANNER - 08/01/2024 12:24 PM CYBER INTEL PLANNER Hospital Encounter [address] [address] Stalin Arauz MD Paroxysmal atrial fibrillation (HCC) Discharge Disposition: Discharge to home or self care 07/31/2024 9:00 AM CYBER INTEL PLANNER - 07/31/2024 11:59 PM CYBER INTEL PLANNER Hospital Encounter [facility] Cardiac Catheterization Lab [address] [place] [address] Discharge Disposition: Discharge to home or self care 07/31/2024 1:10 PM CYBER INTEL PLANNER - 07/31/2024 2:40 PM CYBER INTEL PLANNER Surgery [facility] Cardiac Catheterization Lab [address] [place] [address] Stalin Arauz MD PERC JUDY CLOSE W/IMPLANT [id number] 07/31/2024 10:52 AM CYBER INTEL PLANNER Anesthesia Event [facility] Cardiac Catheterization Lab [address] [place] [address] Maria Guadalupe Talavera MD Barnhart, Lynlee Jo, NP 07/26/2024 Orders Only [facility] Non-invasive Cardiac Diagnostic Testing [address] [place] [address] Stalin Arauz MD Paroxysmal atrial fibrillation (HCC) (Primary Dx) 07/24/2024 Telephone [facility] Medical [facility] [address] [place] [address] [address] [place] [address] Pepper Morgan MD 07/15/2024 10:25 AM CYBER INTEL PLANNER Lab [address] [address] Chronic heart failure with preserved ejection fraction (HCC) 07/15/2024 9:30 AM CYBER INTEL PLANNER Office Visit [place] [employer] at [address] [place] [address] Maude Harris NP Chronic atrial fibrillation (HCC) (Primary Dx); Chronic heart failure with preserved ejection fraction (HCC); Benign hypertension; Peripheral arterial disease; Paroxysmal atrial fibrillation (HCC) 06/26/2024 Telephone [facility] [address] [place] [address] Pepper Morgan MD from Last 3 Months [...] BY MOUTH EVERY DAY 180 tablet 1 Active pramipexole (MIRAPEX) 0.75 mg tabletIndicatio ns:Restless legs syndrome TAKE 1 TABLET (0.75 MG TOTAL) BY MOUTH 2 TIMES A DAY 180 tablet 2 Active atorvastatin (LIPITOR) 20 mg tablet Take 1 tablet (20 mg total) by mouth daily 30 tablet 025 2025 Active furosemide (LASIX) 80 mg tablet Take 1 tablet (80 mg total) by mouth 2 (two) times a day 60 tablet Active metOLazone (ZAROXOLYN) 5 mg tablet Take 1 tablet (5 mg total) by mouth 2 (two) times a week 15 tablet 3 Active gabapentin (NEURONTIN) 100 mg capsule Take [...] 2 (two) times a day 180 [address] (PROTONIX) 40 mg [...] use. Do not swallow. 60 each 6 Active Ferrocite 324 mg (106 mg iron) [...] by mouth 3 (three) times a day 024 2024 Discontinued vericiguat (Verquvo) 2.5 mg tablet Take 1 tablet (2.5 mg total) by mouth daily 14 tablet 024 2024 Discontinued(T herapy completed) fluticasone propion-salmete roL [...] Gouty arthritis of foot 11/24/2023 Atherosclerosis of [place] ar teries of extremities with intermittent claudication, bilateral legs 07/31/2023 [place] of macula of both eyes 05/30/2023 Mild persistent asthma 03/13/2023 Assessment & Plan (06/13/2023 7:53 PM CYBER INTEL PLANNER): Controlled on advair and albuterol. 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 Will discuss additional treatment options with Dr. Morgan. Chronic GERD 11/02/2013 Overview (09/22/2016): Acid reflux Assessment & Plan (06/24/2019 9:31 AM CYBER INTEL PLANNER): Symptoms have improved with protonix. She has had no further issues. We will continue with present regimen. Benign hypertension 11/02/2013 Overview (09/23/2016): Benign essential HTN Assessment & Plan (06/13/2023 7:49 PM CYBER INTEL PLANNER): BP soft but stable in office today [...] above. Assessment & Plan (06/24/2019 12:50 PM CYBER INTEL PLANNER): Well controlled will continue present regimen. Restless [...] Prediabetes 01/11/2024 08/26/2024 Acute lower GI bleeding 01/11/2024 03/ Esophageal dysphagia 11/24/2023 025 Skin tear of [...] 24 hours. Will rx augmentin as directed. [place] diet, stay hydrated. Continue immodium as needed. ADDENDUM: patient states augmentin made symptoms worse, stop all abx and start budesonide as directed. Follow in 2 weeks. Parkinson's disease (tremor, stiffness, slow motion, unstable posture) 01/24/2022 12/08/2022 Lymphedema 12/06/2021 01/24/2022 Tremor 12/06/2021 04/10/2023 Overview (01/24/2022): Cogwheel tremor right hand greater than left consistent with Parkinson's treating for her restless leg with Mirapex with relief group home (current) use of opiate analgesic 11/30/2021 01/24/2022 [...] 022 Assessment & Plan (08/11/2021 9:51 AM CYBER INTEL PLANNER): Patient presents with recurrent issues of left [...] consider checking C1 esterase and referral to soil tester. However, patient states she has done this in the past and w/u was benign. She will call or return sooner if needed. Shortness of breath 04/21/2021 08/27/19 25 Assessment & Plan (06/13/2023 7:51 PM CYBER INTEL PLANNER): More likely due to CHF and 7 [...] 06/01/2021 Assessment & Plan (06/02/2020 11:07 AM CYBER INTEL PLANNER): Patient presents with congestion, purulent discharge, ear pain/pressure and PND most consistent with acute sinusitis. She reports she has been using sinus rinse, flonase and Muccinex OTC. COVID-19 rapid testing negative and no known COVID-19 exposure. She will continue quarantine until symptoms improving. She will begin antibiotic therapy and complete as prescribed. She will call with persistent or unresolved symptoms. group home (current) use of n on-steroidal anti-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s (nsaid) 11/18/2019 06/01/2021 Constipation due to opioid therapy 11/18/2019 01/24/2022 Edema 08/08/2019 11/18/2019 Assessment & Plan (08/08/2019 10:37 AM CYBER INTEL PLANNER): Improved with lasix. We will repeat BMP to monitor renal function. She remains on aldactone which we will continue. She was encouraged to keep legs elevated while at rest and to avoid additional salt intake. If edema returns can prescribe lasix prn if renal function is stable Acute low back pain 08/08/2019 06/01/20 21 Assessment & Plan (08/08/2019 12:31 PM CYBER INTEL PLANNER): Most likely secondary to degenerative disc disease. [...] 08/26/2024 Assessment & Plan (08/08/2019 10:35 AM CYBER INTEL PLANNER): Noted post-operatively. She has been on iron [...] management. Assessment & Plan (06/24/2019 12:50 PM CYBER INTEL PLANNER): She has plans for rt hip replacement [...] Immunization Administration Dates Next Due COVID-19 mRNA ([employer]) 0.3 m L (30 mcg) vaccine (12 [...] drink = 0.6 oz pur e alcohol) [facility] [employer] Answer Date Recorded In the past 12 months has [employer], gas, oil, or water [email or web address] threatened to shut off services in your [...] 04/11/2024 How often do you attend chur or tenriism services? Never 04/11/2024 Do you belong to [...] any time in the past 12 [facility], were you homeless or living in [...] on file Legal Sex Female 4:33 AM CYBER INTEL PLANNER Gender Identity Not on file Sexual [...] 09/03/2024 3:08 PM CDT Plan of Treatment Not on file Goals Goal Patient Goal Type Associated Problems Recent Progress Patient-Stated? Author BH-Pain Behavioral Health Improving( 3:34 PM CDT) No oDmitila Garay, XU Note: Patient will establish a comfort-function goal and identify the pain level that will allow the patient to perform desired activities and achieve an acceptable quality of life. Medical Devices Implanted Type Area Market Survey Representative Device Identifier Shelf Expiration Date Model / Serial / Lot Depuy Orthopaedics Inc [id number] [place] 52mm Sector Hip Shell Acetabular Gription Sterile Latex Free - [id number] Implanted:Qty: 1 on 07/10/2019 by Puma Mckenzie MD at [facility] Right: Hip [employer]uy [employer]opa[employer] Inc 05/18/2029 [id number] / / [id number] Dep[employer] [id number] [place] 52mm 36mm Hip Neutral Liner Acetabular Altrx Sterile Latex Free - [id number] Implanted:Qty: 1 on 07/10/2019 by Puma Mckenzie MD at [facility] Right: Hip [employer] 04/18/2024 [id number] / / [id number] Dep[employer] Inc 1217--500 [place] 6.5mm 25mm Acetabular Cancellous Screw Bone Sterile - [id number] Implanted:Qty: 1 on 07/10/2019 by Puma Mckenzie MD at [facility] Right: Hip [employer] Inc 12/16/2028 1217-25-500 / / [id number] Dep[employer] [id number] Articul/Ernesto 36mm Cementless Hip +1.5mm /14 Taper Head Femoral Latex Free - [id number] Implanted:Qty: 1 on 07/10/2019 by Puma Mckenzie MD at [facility] Right: Hip [employer] Inc 03/18/2024 [id number] / / [id number] Dep[employer] Inc [id number] Actis Collared Hip 06/01 6 Standard Offset Stem Femoral - [id number] Implanted:Qty: 1 on 07/10/2019 by Puma Mckenzie MD at [facility] Right: Hip [employer] 06/18/2029 [id number] / / [id number] Dep[employer] Inc [place] 6.5mm 35mm Acetabular Cancellous Screw Bone Sterile 1217-35-500 - [id number] Implanted:Qty: 1 on 11/01/2021 by Puma Mckenzie MD at [facility] Left: Hip [employer] Inc 08/17/2031 1217-35-500 / / [id number] Dep[employer] [id number] [place] 52mm 36mm Hip Neutral Liner Acetabular Altrx Sterile Latex Free - [id number] Implanted:Qty: 1 on 11/01/2021 by Puma Mckenzie MD at [facility] Left: Hip [employer] Inc 08/16/2026 [id number] / / [id number] Dep[employer] Inc [place] 52mm Sector Hip Shell Acetabular Gription Sterile Latex Free [id number] - [id number] Implanted:Qty: 1 on 11/01/2021 by Puma Mckenzie MD at [facility] Left: Hip [employer] Inc [id number] 08/17/2031 [id number] / / [id number] Dep[employer] Inc [id number] Actis Collar Hip 7 High Offset Stem Femoral - [id number] Implanted:Qty: 1 on 11/01/2021 by Puma Mckenzie MD at [facility] Left: Hip [employer] Inc [id number] 08/17/2031 [id number] / / [id number] Dep[employer] Inc Articul/Ernesto 36mm Cementless Hip +1.5mm 06/01 Taper Head Femoral Latex Free [id number] - [id number] Implanted:Qty: 1 on 11/01/2021 by Puma Mckenzie MD at [facility] Left: Hip [employer] Inc 09/16/2026 [id number] / / [id number] Medtronic Inc Protege Gps Exprt 9mm .079in 60mm 80cm Otw Delivery System Self [id number] - [id number] Implanted:Qty: 1 on 02/18/2022 by Stalin Arauz MD at [facility] Med[employer] Inc 10/22/2024 [id number] 0 -80 / / [id number] [employer] Angio-Seal Evolution 6fr Vascular Closure [id number] - [id number] Implanted:Qty: 1 on 02/18/2022 by Stalin Arauz MD at [facility] [employer] 06/18/2022 [id number] / / [id number] [employer] RadPad Zilver Ptx 6mm 120mm 125cm Drug Elute Otw Delivery System [id number] - [id number] Implanted:Qty: 1 on 02/18/2022 by Stalin Arauz MD at [facility] [employer] 10/21/2023 [id number] / / [id number] [employer] RadPad Zilver Ptx 6mm 100mm 125cm Otw Preload Delivery System Self [id number] - [id number] Implanted:Qty: 1 on 02/18/2022 by Stalin Arauz MD at [facility] 11/09/2023 [id number] / / [id number] Medtronic Inc Everflex Entrust 8mm 60mm 120cm Self Expand Triaxial Low Profile - [id number] Implanted:Qty: 1 on 02/18/2022 by Stalin Arauz MD at [facility] [employer] Inc 07/26/2024 [id number] 0 -120 / / [id number] [employer] Angio-Seal Evolution 6fr Vascular Closure [id number] - [id number] Implanted:Qty: 1 on 03/24/2022 by Stalin Arauz MD at [facility] [employer] 05/18/2022 [id number] / / [id number] [employer] Occluder Cvasc Judy Flexible Braided Amplatzer Amulet 20mm Nitinol [id number]-[id number] - [id number] Implanted:Qty: 1 on 07/31/2024 by Stalin Arauz MD at [facility] [employer] 12/16/2028 9-ACP2-00 7-0 20 / / [id number] Procedures Procedure Name Priority Date/Time Associated Diagnosis [...] Read Routine (OP Routine) 08/21/2024 3:38 PM CYBER INTEL PLANNER Stage 3 chronic kidney disease, unspecified whether stage 3a or 3b CKD (HCC) Essential (primary) hypertension Chronic systolic (congestive) heart failure (HCC) Hypertensive chronic kidney disease with stage 1 through stage 4 chronic kidney disease, or unspecified chronic kidney disease ND ARTHROCENTESIS ASPIR&/INJ MAJOR JT/BURSA W/O US Routine 08/15/2024 1:15 PM CYBER INTEL PLANNER 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 TRANSTHORACIC ECHO (TTE) LIMITED/FOLLOW UP W LTD DOPPLER/CF WO CONTRAST Routine 08/01/2024 8:20 AM CYBER INTEL PLANNER EGFR Routine 08/01/2024 7:55 AM CYBER INTEL PLANNER DIFFERENTIAL AUTO Routine 08/01/2024 7:5 5 AM CYBER INTEL PLANNER CBC WITH AUTO DIFFERENTIAL Routine 08/01/2024 7:55 AM CYBER INTEL PLANNER MAGNESIUM Routine 08/01/2024 7:55 AM CYBER INTEL PLANNER BASIC METABOLIC PANEL Routine 08/01/2024 7:55 AM CYBER INTEL PLANNER ECG 12-LEAD Routine 08/01/2024 7:25 AM CYBER INTEL PLANNER APTT Routine 07/31/2024 6:15 PM CYBER INTEL PLANNER PROTIME-INR Routine 07/31/2024 6:15 PM CYBER INTEL PLANNER PERC JUDY CLOSURE W/IMPLANT (WATCHMAN) [id number] Routine 07/31/2024 11:48 AM CYBER INTEL PLANNER Paroxysmal atrial fibrillation (HCC) TRANSESOPHAGEAL ECHO (AZEEM) W DOPPLER/CF WO CONTRAST Routine 07/31/2024 11:45 AM CYBER INTEL PLANNER POCT ACTIVATED CLOTTING TIME, HIGH RANGE Routine 07/31/2024 11:30 AM CYBER INTEL PLANNER ND AN ELECTIVE ENDOTRACHEAL AIRWAY Routine 07/31/2024 11:15 AM CYBER INTEL PLANNER ECG 12-LEAD Routine 07/31/2024 9:15 AM CYBER INTEL PLANNER PREPARE RBC STAT 07/31/2024 8:59 AM CYBER INTEL PLANNER EGFR Routine 07/31/2024 8:41 AM CYBER INTEL PLANNER DIFFERENTIAL AUTO Routine 07/31/2024 8:4 1 AM CYBER INTEL PLANNER TYPE AND SCREEN Timed 07/31/2024 8:41 AM CYBER INTEL PLANNER COMPREHENSIVE METABOLIC PANEL Routine 07/31/2024 8:41 AM CYBER INTEL PLANNER CBC WITH AUTO DIFFERENTIAL Routine 07/31/2024 8:41 AM CYBER INTEL PLANNER EGFR Routine 07/15/2024 10:29 AM CYBER INTEL PLANNER Chronic heart failure with preserved ejection fraction (HCC) BASIC METABOLIC PANEL Routine 07/15/2024 10:29 AM CYBER INTEL PLANNER Chronic heart failure with preserved ejection fraction (HCC) PRO B-TYPE NATRIURETIC PEPTIDE Routine 07/15/2024 10:29 AM CYBER INTEL PLANNER Chronic heart failure with preserved ejection fraction (HCC) from Last 3 Months Results * Clinical pathology report (09/16/2024 1:08 PM CDT) Miscellaneous 09/16/2024 1:0 8 PM CDT 09/17/2024 8:39 AM CDT Narrative 09/17/2024 4:43 PM CDT [facility] results best viewed via link to PDF [facility] Department of Pathology [address] [place] [address] Final Report Note to Patients: This report [...] details. Patient Name: TESS BENEDICT I. Address: [address] [place] [address]- Gender: F : 1935 (Age: 88) Service: Location: [facility] : [id number] Hospital #: [id number] Patient Type: [facility] ANCILLARY Taken: 09/16/2024 Received: 09/17/2024 Accessioned: 09/17/2024 Physician(s): Tristin Guillen M.D. [facility] Specimen(s) Received A: Blood (serum) Serum Protein [...] determined by the Surgical Pathology Department at [facility] as part of an ongoing software quality automation engineer program and in compliance with federally [...] characteristics determined by the Surgical Pathology Department [facility]. It has not been cleared or approved by the U. S. Food and Drug Administration. REPORT IMAGES AND SCANNED DOCUMENTS, IF INCLUDED, ONLY VIEWABLE IN PDF VERSION OF REPORTe o Tristin Guillen MD LAB PATHOLOGY ORDERABLES Farzana [...] of Race in Diagnosing Kidney Disease, JASN 2021). The CKD-EPI equation should not be used for patients with unstable renal function and has not been validated in children and those over 70. Current interpretive data was last reviewed 2021. Blood 09/16/2024 1:08 PM CDT 09/16/2024 2:38 PM CDT us Tristin Guillen MD LAB BLOOD ORDERABLES Final Re sult [facility] ([address]) 1 [facility] Department [place] [address] * (ABNORMAL) Differential, auto (09/16/2024 1:08 PM [...] Neutrophil pct 81.5 % [facility] ([address]) Comment: Interpretive Data Percent cell count reference [...] Eosinophil pct 1.6 % [facility] ([address]) Comment: Interpretive Data Percent cell count reference ranges are not reported, since discordance with absolute values may lead to misinterpretation of CBC data. Current Interpretive Data was last revised on 2017. Basophil pct 0.3 % [facility] ([address]) Comment: Interpretive Data Percent cell count reference ranges are not reported, since discordance with absolute values may lead to misinterpretation of CBC data. Current Interpretive Data was last revised on 2017. Blood 09/16/2024 1:08 PM CDT 09/16/2024 2:38 PM CDT Tristin Guillen MD LAB BLOOD ORDERABLES Final Re sult Performing Organization Address [facility]/ZIP Co de Phone Number [facility] ([address]) 1 [facility] [place] [address] * (ABNORMAL) Iron profile w/ IBC (09/16/2024 1:08 PM CDT) Iron 36 35 - 145 mcg/dL TIBC 404(H) 250 - 400 mcg/dL [facility] ([address]) Transferrin saturation 9(L) 20 - 50 % [facility] ([address]) Blood 09/16/2024 1:08 PM CDT 09/16/2024 2:38 PM CDT Tristin Guillen MD LAB BLOOD ORDERABLES Final Re sult Performing Organization Address City/[facility]/ZIP Co de Phone Number [facility] ([address]) 1 [facility] [address] * (ABNORMAL) Urinalysis reflex to microscopic (09/16/2024 1:08 PM CDT) Color, ur Straw Yellow Clarity, ur Clear Clear [facility] ([address]) Specific gravity, ur 1.006 1.003 - 1.030 [facility] ([place]) pH, urine 7.0 [facility] ([place]) Comment: Interpretive Data U rine pH is affected by diet, medications, systemic acid-base disturbances, and renal tubular function. pH may affect urinary stone formation. For example, urine pH below 6.0 may help reduce the tendency for calcium phosphate stones and pH greater than 6.0 may reduce the tendency for uric acid stone formation. Source: [facility] [employer] Current Interpretive Data was last revised on [...] MD LAB URINE ORDERABLES Final Re sult [facility] ([place]) 1 [facility] Department [place] [address] * (ABNORMAL) CBC with auto differential (09/16/2024 [...] (HIGINIO) MCH 26.3(L) 27.1 - 33.3 pg [facility] ([facility]IGINIO) MCHC 32.2(L) 32.3 - 35.7 g/dL [facility] (HIGINIO) RDW CV 16.0(H) 11.1 - 14.9 % [facility] ([place]IGINIO) RDW SD 47.4 35.7 - 48.1 fL [facility] ([place]IGINIO) NRBC abs 0.00 0.00 - 0.01 K/cumm [facility] (HIGINIO) Blood 09/16/2024 1:08 PM CDT 09/16/2024 2:38 PM CDT Tristin Guillen MD LAB BLOOD ORDERABLES Final Re sult Performing Organization Address [facility]/[place] [facility] de Phone Number CHIDI FANG ([address]) 1 [facility] [employer] [place] [address] * (ABNORMAL) Protein / creatinine ratio, urine, random (09/16/2024 1:08 PM CDT) Protein, ur, quant <5.0 mg/dL Comment: Interpretive Data No reference range established. Current interpretive data was last revised 2018. Creatinine Ur 15.8 mg/dL [facility] (HIGINIO) Comment: Interpretive Data No reference range established. Current interpretive data was last revised 2018. Protein/creatinin e ratio <316.5(H) 0.0 - 180.0 mg/g CR [facility] (HIGINIO) Urine 09/16/2024 1:08 PM CDT 09/16/2024 1:56 PM CDT Tristin Guillen MD LAB URINE ORDERABLES Final Re sult Performing Organization Address [facility]/[place] [facility] Co de Phone Number CHIDI FANG (HIGINIO) 1 [facility] [place] [employer] [place] [address] * (ABNORMAL) Erythrocyte sedimentation rate (09/16/2024 1:08 PM CDT) Pathologist [facility] Erythrocyte sedimentation rate 32(H) 1 - 30 mm/hr Blood 09/16/2024 1:08 PM CDT 09/16/2024 2:38 PM CDT Tristin Guillen MD LAB BLOOD ORDERABLES Final Re sult CHIDI FANG ([address]) 1 [facility] [place] [employer] [place] [address] * C3 complement (09/16/2024 1:08 PM CDT) [facility] Complement C3 156 90 - 180 mg/dL Comment:Testing performed by : [facility], [address] [place] [address], [id number] Blood 09/16/2024 1:08 PM CDT 09/16/2024 5:54 PM CDT Tristin Guillen MD LAB BLOOD ORDERABLES Final Re sult Performing Organization Address City/[place] [facility]/ZIP Co de Phone Number CHIDI FANG ([address]) [address] [place] [address] [employer] [place] [address] * TSH (09/16/2024 1:08 PM CDT) Pathologist [facility] Thyroid Stimulating Hormone 3.53 0.30 - 4.20 mcIUnit/mL Blood 09/16/2024 1:08 PM CDT 09/16/2024 2:38 PM CDT Tristin Guillen MD LAB BLOOD ORDERABLES Final Re sult Performing Organization Address City/[facility]/ZIP Co de Phone Number CHIDI FANG ([address]) [address] [place] [address] [employer] [place] [address] * T4, free (09/16/2024 1:08 PM CDT) Pathologist [facility] Free T4 1.53 0.90 - 1.70 ng/dL Blood 09/16/2024 1:08 PM CDT 09/16/2024 2:38 PM CDT us Tristin Guillen MD LAB BLOOD ORDERABLES Final Re sult Performing Organization Address [facility] Co de Phone Number CHIDI FANG ([address]) 1 [facility] [employer] [place] [address] * Phosphorus (09/16/2024 1:08 PM CDT) Phosphorus, pl 4.2 2.3 - 4.5 mg/dL Blood 09/16/2024 1:08 PM CDT 09/16/2024 2:38 PM CDT us Tristin Guillen MD LAB BLOOD ORDERABLES Final Re sult Performing Organization Address [facility] Co de Phone Number CHIDI FANG ([address]) 1 [facility] [place] [address] * (ABNORMAL) PTH (09/16/2024 1:08 PM CDT) PTH 125(H) 15 - 65 pg/mL Blood 09/16/2024 1:08 PM CDT 09/16/2024 2:38 PM CDT us Tristin Guillen MD LAB BLOOD ORDERABLES Final Re sult Performing Organization Address [facility] Co de Phone Number [facility] (HIGINIO) 1 [facility] [employer] [address] * (ABNORMAL) Iron level (09/16/2024 1:08 PM CDT) Iron 33(L) 35 - 145 mcg/dL Blood 09/16/2024 1:08 PM CDT 09/16/2024 2:38 PM CDT us Tristin Guillen MD LAB BLOOD ORDERABLES Final Re sult Performing Organization Address City/[facility]/ZIP Co de Phone Number CHIDI FANG ([address]) 1 [facility] [place] [address] * Hemoglobin A1c (09/16/2024 1:08 PM CDT) Pathologist [facility] Hgb A1C 5.5 4.0 - 5.6 % Estimated Average Glucose 111 mg/dL [facility] FANG ([address] COURT) Comment: The ADA recommends reporting an estimated Average Glucose (eAG) with all Hemoglobin A1c results using the equation derived from a study of 507 normal and diabetic adults. Minority populations were underrepresented and children were not included. (Diabetes Care 31:9430-8184, 2008). The eAG is not equivalent to a fasting glucose. Blood 09/16/2024 1:08 PM CDT 09/16/2024 2:38 PM CDT Tristin Guillen MD LAB BLOOD ORDERABLES Final Re sult Performing Organization Address [facility] Co de Phone Number CHIDI FANG ([address]) 1 [place] [address] * Bilirubin, direct (09/16/2024 1:08 PM CDT) [facility] Bilirubin, direct 0.1 0.1 - 0.3 mg/dL Blood 09/16/2024 1:08 PM CDT 09/16/2024 2:38 PM CDT Tristin Guillen MD LAB BLOOD ORDERABLES Final Re sult CHIDI FANG ([address]) 1 [facility] [place] [address] * (ABNORMAL) Comprehensive metabolic panel (09/16/2024 1:08 PM CDT) Pathologist [facility] Sodium 127(L) 135 - 145 mmol/L Potassium, pl 3.2(L) 3.3 - 4.9 mmol/L [facility] ([facility]IGINIO) Chloride 83(L) 97 - 110 mmol/L [facility] ([place]IGINIO) CO2 28 22 - 32 mmol/L [facility] ([place]IGINIO) Anion gap 16(H) 2 - 15 mmol/L [facility] ([place]IGINIO) BUN 78(H) 6 - 25 mg/dL [facility] ([place]IGINIO) Creatinine 1.78(H) 0.60 - 1.10 mg/dL [facility] (HIGINIO) Glucose 94 70 - 199 [...] Final Re sult [facility] (HIGINIO) 1 [facility] Department [place] [address] * US Kidney Complete (08/21/2024 3:38 PM CYBER INTEL PLANNER) Anatomical Region Laterality Modality Kidney N/A Ultrasound [...] Miguel Case M.D. CH: ALEXUS Report ID: [id number] [place] Location: [id number] Procedure Note José Miguel Case Jr., MD [...] Miguel Case M.D. CH: ALEXUS Report ID: [id number] [place] Location: [place] [address] us Tristin Guillen MD IMG US PROCEDURES Final Resul t * ND ARTHROCENTESIS ASPIR&/INJ MAJOR JT/BURSA W/O US (08/15/2024 1:15 PM CYBER INTEL PLANNER) Narrative Jadyn Hobson PA - 08/15/2024 1:15 PM CYBER INTEL PLANNER Jadyn Hobson PA 08/15/2024 2:12 PM Large [...] LTD DOPPLER/CF WO CONTRAST (08/01/2024 8:20 AM CYBER INTEL PLANNER) Anatomical Region Laterality Modality Ultrasound 08/01/2024 6:46 AM CYBER INTEL PLANNER Narrative 08/01/2024 9:39 AM CYBER INTEL PLANNER [address] [place] [address] Limited Echocardiogram Report Patient Name: TESS BENEDICT I : 1935 Study Date: 08/01/2024 6:46:22 AM Gender: F Tech: Location: [address] Provider: STALIN ARAUZ Height(Cm): 152 BSA: 1.87 [...] By: Latanya Fitzgerald DO, DEANNA, SOLANGE MCINTYRE 08/01/2024 9:38:26 AM CYBER INTEL PLANNER Procedure Note Latanya Fitzgerald Yvonne DO - 08/01/2024 [place] [address] Limited Echocardiogram Report Patient Name: TESS BENEDICT I : 1935 Study Date: 08/01/2024 6:46:22 AM Gender: F Tech: Location: [id number] [facility] Provider: STALIN ARAUZ Height(Cm): 152 BSA: 1.87 [...] By: Latanya Fitzgerald DO, DEANNA, SOLANGE MCINTYRE 08/01/2024 9:38:26 AM CYBER INTEL PLANNER Stalin Arauz MD CV ECHO PROCEDURES Final Result * (ABNORMAL) eGFR (08/01/2024 7:55 AM CYBER INTEL PLANNER) eGFR 43(L) >=60 mL/min/1. 73 m2 Comment: [...] last reviewed 2021. Blood 08/01/2024 7:55 AM CYBER INTEL PLANNER 08/01/2024 8:13 AM CYBER INTEL PLANNER Stalin Arauz MD LAB BLOOD ORDERABLES Final Resu lt [facility] [address] [place] [address] * (ABNORMAL) Differential, auto (08/01/2024 7:55 AM CYBER INTEL PLANNER) Neutrophil abs 9.9(H) 1.5 - 6.5 K/cumm Imm gran abs 0.1 0.0 - 0.1 K/cumm [facility] Lymphocyte abs 0.6(L) 0.8 - 3.3 K/cumm [facility] Monocyte abs 0.8 0.2 - 0.8 K/cumm [facility] Eosinophil abs 0.0 0.0 - 0.5 K/cumm [facility] Basophil abs 0.0 0.0 - 0.1 K/cumm [facility] Neutrophil pct 86.7 % [facility] Comment: Interpretive Data Percent cell count reference ranges are not reported, since discordance with absolute values may lead to misinterpretation of CBC data. Current Interpretive Data was last revised on 2017. Imm gran pct 0.9 % [facility] Comment: Interpretive Data Percent cell count reference ranges are not reported, since discordance with absolute values may lead to misinterpretation of CBC data. Current Interpretive Data was last revised on 2017. Lymphocyte pct 5.2 % [facility] Comment: Interpretive Data Percent cell count reference ranges are not reported, since discordance with absolute values may lead to misinterpretation of CBC data. Current Interpretive Data was last revised on 2017. Monocyte pct 6.8 % [facility] Comment: Interpretive Data Percent cell count reference ranges are not reported, since discordance with absolute values may lead to misinterpretation of CBC data. Current Interpretive Data was last revised on 2017. Eosinophil pct 0.2 % [facility] Comment: Interpretive Data Percent cell count reference ranges are not reported, since discordance with absolute values may lead to misinterpretation of CBC data. Current Interpretive Data was last revised on 2017. Basophil pct 0.2 % [facility] Comment: Interpretive Data Percent cell count reference ranges are not reported, since discordance with absolute values may lead to misinterpretation of CBC data. Current Interpretive Data was last revised on 2017. Blood 08/01/2024 7:55 AM CYBER INTEL PLANNER 08/01/2024 8:13 AM CYBER INTEL PLANNER us Stalin Arauz MD LAB BLOOD ORDERABLES Final Resu lt [facility]I [address] [place] [address] * (ABNORMAL) CBC with auto differential (08/01/2024 7:55 AM CYBER INTEL PLANNER) Pathologist [facility] WBC 11.4(H) 3.8 - 9.9 K/cumm Hgb 12.2 11.9 - 15.5 g/dL [facility] CH Hct 41.7 35.6 - 45.5 % [facility] CH Plt 276 150 - 400 K/cumm [facility] CH MPV 9.4 9.1 - 12.3 fL [facility] RBC 4.78 3.90 - 5.20 M/cumm [facility] CH MCV 87.2 81.3 - 96.4 fL [facility] CH MCH 25.5(L) 27.1 - 33.3 pg [facility] CH MCHC 29.3(L) 32.3 - 35.7 g/dL [facility] CH RDW CV 17.1(H) 11.1 - 14.9 % [facility] CH RDW SD 53.6(H) 35.7 - 48.1 fL [facility] CH NRBC abs 0.00 0.00 - 0.01 K/cumm [facility] Blood 08/01/2024 7:55 AM CYBER INTEL PLANNER 08/01/2024 8:13 AM CYBER INTEL PLANNER Stalin Arauz MD LAB BLOOD ORDERABLES Final Resu lt Performing Organization Address [facility]/[place] [facility] Co de Phone Number [facility]I [facility]AN [address] [place] [place] [address] * Magnesium (08/01/2024 7:55 AM CYBER INTEL PLANNER) [facility] Magnesium 2.3 1.4 - 2.5 mg/dL Blood 08/01/2024 7:55 AM CYBER INTEL PLANNER 08/01/2024 8:13 AM CYBER INTEL PLANNER Stalin Arauz MD LAB BLOOD ORDERABLES Final Resu lt Performing Organization Address [facility]/ZIP Co de Phone Number CHIDI VAUGHAN [address] [place] [address] * (ABNORMAL) Basic metabolic panel (08/01/2024 7:55 AM CYBER INTEL PLANNER) Sodium 137 135 - 145 mmol/L Potassium, pl 4.1 3.3 - 4.9 mmol/L [facility] Chloride 99 97 - 110 mmol/L [facility] CH CO2 24 22 - 32 mmol/L [facility] CH Anion gap 14 2 - 15 mmol/L [facility] CH BUN 43(H) 6 - 25 mg/dL [facility] CH Creatinine 1.22(H) 0.60 - 1.10 mg/dL [facility] Glucose 100 70 - 199 mg/dL [facility] Comment: Interpretive Data Fasting glucose >/= [...] 2022. Calcium 9.6 8.5 - 10.3 mg/dL [facility] Blood 08/01/2024 7:55 AM CYBER INTEL PLANNER 08/01/2024 8:13 AM CYBER INTEL PLANNER Stalin Arauz MD LAB BLOOD ORDERABLES Final Resu lt [facility] [address] [facility] [place] [address] * ECG 12 lead (08/01/2024 7:25 AM CYBER INTEL PLANNER) 08/01/2024 7:25 AM CYBER INTEL PLANNER Narrative [facility] - 08/01/2024 10:33 AM CYBER INTEL PLANNER Vent Rate: 79 bpm RR Interval: 757 msec ND Interval: 0 msec QRS Duration: 73 msec QT Interval: 378 msec QTC Interval: 412 msec P-R-T Garland: 0 - 74 - 17 degrees IMPRESSION: ATRIAL FIBRILLATION WITH CONTROLLED VENTRICULAR RESPONSE Electronically Signed By: Collin Rich MD, [facility] Stalin Arauz MD ECG ORDERABLES Final Result Performing Organization Address [facility] Co de Phone Number [facility] * aPTT (07/31/2024 6:15 PM CYBER INTEL PLANNER) aPTT 32 28 - 38 sec Comment: Interpretive Data Heparin therapeutic range: 66.0 - 100.0 seconds. Range based on correlation with therapeutic heparin activity range of 0.3 - 0.7 Units/mL. Current interpretive data was last revised on 2023. Blood 07/31/2024 6:15 PM CYBER INTEL PLANNER 07/31/2024 6:19 PM CYBER INTEL PLANNER Stalin Arauz MD LAB BLOOD ORDERABLES Final Resu lt Performing Organization Address [facility] de Phone Number [facility]LL[facility] [address] [employer] [place] [address] * Protime-INR (07/31/2024 6:15 PM CYBER INTEL PLANNER) PT 12.2 9.7 - 13.0 sec INR 1.13 0.90 - 1.20 [facility] Comment: Interpretive data Oral anticoagulant therapeutic ranges: Venous thromboembolism prophylaxis or treatment: 2.0-3.0 CARDIOLOGY Standard range: 2.0-3.0 High-intensity range: 2.5-3.5 Refer to indication-specific guidelines for appropriate target ranges for prosthetic heart valve replacement. Current interpretive data was last revised on 2019. Blood 07/31/2024 6:15 PM CYBER INTEL PLANNER 07/31/2024 6:19 PM CYBER INTEL PLANNER Stalin Arauz MD LAB BLOOD ORDERABLES Final Resu lt Performing Organization Address [facility] Co de Phone Number [facility]IDI [address] [employer] [place] [address] * PERC JUDY CLOSURE W/IMPLANT (WATCHMAN) [id number] (07/31/2024 11:48 AM CYBER INTEL PLANNER) Anatomical Region Laterality Modality X-Ray Angiograph y Narrative 07/31/2024 12:29 PM CYBER INTEL PLANNER HISTORY 88y.o. old female with a history [...] fail. The patient was brought to the [facility] OR in a fasting state. A time-out was performed. The patient was prepped and draped in the usual sterile fashion. General anesthesia was administered. The patient received endotracheal intubation. OPERATORS: Stalin arauz MD, VASCULAR ACCESS The right femoral vein was accessed using the modified Seldinger technique. An 8-Cymro sheath was inserted. TRANSSEPTAL PUNCTURE The patient was kept therapeutically anticoagulated throughout the case. Transseptal puncture was made to gain access to the left atrium using a [employer] needle system. Transseptal catheterization was performed and guided by AZEEM see imaging note . The transseptal puncture was performed mid and inferior position. The wire was advanced through the left atrium and a double curved delivery sheath was placed over the wire. An Amplatzer delivery catheter TorqVue was advanced into the left atrial appendage. A 5-Cymro pigtail was used to gain access into [...] without in lab complications. Stalin Arauz MD Stalin Arauz MD CV ELECTROPHYSIOLOGY PROCS Farzana david Result * TRANSESOPHAGEAL ECHO (AZEEM) W DOPPLER/CF WO CONTRAST (07/31/2024 11:45 AM CYBER INTEL PLANNER) Anatomical Region Laterality Modality Ultrasound Narrative 07/31/2024 12:35 PM CYBER INTEL PLANNER Table formatting from the original result was not included. Result Text PROCEDURE Transesophageal ECHO for left atrial appendage closure INDICATION 88-year-old with paroxysmal Atrial fibrillation and [id number] score 6 , HAS BLED 4 with [...] Clotting Time, High Range (07/31/2024 11:30 AM CYBER INTEL PLANNER) ACT 280(H) 87 - 138 sec Blood 07/31/2024 11:3 0 AM CYBER INTEL PLANNER 07/31/2024 11:30 AM CYBER INTEL PLANNER Stalin Arauz MD LAB BLOOD ORDERABLES Final Resu lt [facility]I [address] [place] [address] * ND AN ELECTIVE ENDOTRACHEAL AIRWAY (07/31/2024 11:15 AM CYBER INTEL PLANNER) Narrative Rosita Sharma AA - 07/31/2024 11:15 AM CYBER INTEL PLANNER Rosita Sharma AA 07/31/2024 11:15 AM Airway [...] * ECG 12 lead (07/31/2024 9:15 AM CYBER INTEL PLANNER) 07/31/2024 9:15 AM CYBER INTEL PLANNER Narrative [facility] - 07/31/2024 1:18 PM CYBER INTEL PLANNER Vent Rate: 80 bpm RR Interval: 743 msec ND Interval: 0 msec QRS Duration: 78 msec QT Interval: 389 msec QTC Interval: 425 msec P-R-T Garland: 0 - 91 - 23 degrees IMPRESSION: ATRIAL FIBRILLATION BORDERLINE RIGHT AXIS DEVIATION ABNORMAL RHYTHM ECG Electronically Signed By: Dr. Gardenia Harper [facility] us Stalin Arauz MD ECG ORDERABLES Final Result [facility] * Prepare RBC: 2 Units (07/31/2024 8:59 AM CYBER INTEL PLANNER) Product code [id number] Unit Number [id number] 1-N [facility] Product Blood Type APOS [facility] Dispense Status RETURNED [facility] Product code Z7452I75 [facility] Unit Number [id number] 7-Q [facility] Product Blood Type APOS [facility] CH Dispense Status RETURNED [facility] Blood 07/31/2024 8:59 AM CYBER INTEL PLANNER Narrative [facility] - 08/04/2024 12:07 AM CYBER INTEL PLANNER Specify Procedure:->LAAO Are special requirements needed? (All products are leukoreduced and CMV- safe)- >No Date required:-[id number] LRRBC # of [id number] Reasons:-Hold for procedure (specify procedure)} Stalin Arauz MD BLOOD BANK PRODUCT ORDERABLES F inal Result [facility] [address] Department [place] [address] * (ABNORMAL) eGFR (07/31/2024 8:41 AM CYBER INTEL PLANNER) Pathologist [facility] eGFR 40(L) >=60 mL/min/1. 73 m2 Comment: [...] last reviewed 2021. Blood 07/31/2024 8:41 AM CYBER INTEL PLANNER 07/31/2024 8:44 AM CYBER INTEL PLANNER Stalin Arauz MD LAB BLOOD ORDERABLES Final Resu lt [facility] [address] [place] [address] * (ABNORMAL) Differential, auto (07/31/2024 8:41 AM CYBER INTEL PLANNER) Neutrophil abs 8.2(H) 1.5 - 6.5 K/cumm Imm gran abs 0.1 0.0 - 0.1 K/cumm [facility] Lymphocyte abs 0.6(L) 0.8 - 3.3 K/cumm [facility] Monocyte abs 0.6 0.2 - 0.8 K/cumm [facility] Eosinophil abs 0.3 0.0 - 0.5 K/cumm [facility] Basophil abs 0.1 0.0 - 0.1 K/cumm [facility] Neutrophil pct 84.2 % [facility] Comment: Interpretive Data Percent cell count reference ranges are not reported, since discordance with absolute values may lead to misinterpretation of CBC data. Current Interpretive Data was last revised on 2017. Imm gran pct 1.0 % [facility] Comment: Interpretive Data Percent cell count reference ranges are not reported, since discordance with absolute values may lead to misinterpretation of CBC data. Current Interpretive Data was last revised on 2017. Lymphocyte pct 5.8 % [facility] Comment: Interpretive Data Percent cell count reference ranges are not reported, since discordance with absolute values may lead to misinterpretation of CBC data. Current Interpretive Data was last revised on 2017. Monocyte pct 5.7 % [facility] Comment: Interpretive Data Percent cell count reference ranges are not reported, since discordance with absolute values may lead to misinterpretation of CBC data. Current Interpretive Data was last revised on 2017. Eosinophil pct 2.7 % [facility] Comment: Interpretive Data Percent cell count reference ranges are not reported, since discordance with absolute values may lead to misinterpretation of CBC data. Current Interpretive Data was last revised on 2017. Basophil pct 0.6 % [facility] Comment: Interpretive Data Percent cell count reference ranges are not reported, since discordance with absolute values may lead to misinterpretation of CBC data. Current Interpretive Data was last revised on 2017. Blood 07/31/2024 8:41 AM CYBER INTEL PLANNER 07/31/2024 8:45 AM CYBER INTEL PLANNER Stalin Arauz MD LAB BLOOD ORDERABLES Final Resu lt Performing Organization Address [facility]/ZIP Co de Phone Number CHIDI [address] [place] [address] * (ABNORMAL) CBC with auto differential (07/31/2024 8:41 AM CYBER INTEL PLANNER) WBC 9.8 3.8 - 9.9 K/cumm Hgb 13.5 11.9 - 15.5 g/dL [facility] CH Hct 45.7(H) 35.6 - 45.5 % [facility] Plt 321 150 - 400 K/cumm [facility] CH MPV 9.1 9.1 - 12.3 fL [facility] RBC 5.33(H) 3.90 - 5.20 M/cumm [facility] CH MCV 85.7 81.3 - 96.4 fL [facility] MCH 25.3(L) 27.1 - 33.3 pg [facility] MCHC 29.5(L) 32.3 - 35.7 g/dL [facility] CH RDW CV 17.2(H) 11.1 - 14.9 % [facility] CH RDW SD 53.1(H) 35.7 - 48.1 fL [facility] NRBC abs 0.00 0.00 - 0.01 K/cumm [facility] Blood 07/31/2024 8:41 AM CYBER INTEL PLANNER 07/31/2024 8:45 AM CYBER INTEL PLANNER Stalin Arauz MD LAB BLOOD ORDERABLES Final Resu lt [facility] [address] [place] [address] * Type and screen (07/31/2024 8:41 AM CYBER INTEL PLANNER) ABO Rh A Positive Ever, indirect Negative [facility] Blood 07/31/2024 8:41 AM CYBER INTEL PLANNER 07/31/2024 8:52 AM CYBER INTEL PLANNER Narrative [facility] - 07/31/2024 10:08 AM CYBER INTEL PLANNER Has the patient had Daratumumab or Isatuximab in the past 6 months?->Unknown Stalin Arauz MD LAB BLOOD BANK TEST ORDERABLES Final Result [facility] [address] [place] [address] * (ABNORMAL) Comprehensive metabolic panel (07/31/2024 8:41 AM CYBER INTEL PLANNER) Sodium 137 135 - 145 mmol/L Potassium, [...] Units/L [facility] Blood 07/31/2024 8:41 AM CYBER INTEL PLANNER 07/31/2024 8:44 AM CYBER INTEL PLANNER us Stalin Arauz MD LAB BLOOD ORDERABLES Final Resu lt [facility] [address] [place] [address] * (ABNORMAL) eGFR (07/15/2024 10:29 AM CYBER INTEL PLANNER) eGFR 32(L) >=60 mL/min/1. 73 m2 Comment: [...] reviewed 2021. Blood 07/15/2024 10:2 9 AM CYBER INTEL PLANNER 07/15/2024 11:05 AM CYBER INTEL PLANNER us Maude Harris NP LAB BLOOD ORDERABLES Fi nal Result [facility] ([address]) 1 [facility] Department [place] [address] * (ABNORMAL) Pro B-type natriuretic peptide (07/15/2024 10:29 AM CYBER INTEL PLANNER) NT-proBNP 4,320(H) <=450 pg/mL Comment: Interpretive Comments: [...] Date: 2018. Blood 07/15/2024 10:2 9 AM CYBER INTEL PLANNER 07/15/2024 11:05 AM CYBER INTEL PLANNER us Maude Harris MAIL CLERK LAB BLOOD ORDERABLES Fi nal Result [facility] ([address]) 1 [facility] Department [place] [address] * (ABNORMAL) Basic metabolic panel (07/15/2024 10:29 AM CYBER INTEL PLANNER) Sodium 134(L) 135 - 145 mmol/L Potassium, [...] 2022. Calcium 10.0 8.5 - 10.3 mg/dL [facility] Blood 07/15/2024 10:2 9 AM CYBER INTEL PLANNER 07/15/2024 11:05 AM CYBER INTEL PLANNER Maude Harris NP LAB BLOOD ORDERABLES nal Result [facility] (HIGINIO) 1 [facility] Department [place] [address] from Last 3 Months Insurance MEDICARE [facility] [phone] [facility] MED[facility] MEDICARE [facility] MEDICARE [facility] MEDICARE [facility] MEDICARE SUPPLEMENT Advance Directives For more information, please contact: [phone] Documents on File Type Date Recorded Patient General Assignment Reporter Expl anation ADVANCE DIRECTIVE 05/14/2019 1:34 PM [...] 7:42 PM 12/30/2022 3:56 PM Care Teams Human Factors Specialist Relationship Specialty Start Date End Date Pepper Morgan MD PCP - General 09/16/16 Hank Garibay MD [address] [facility] [address] WARN[address] Sheridan [address] [place] [address] Surgeon Orthopedic Surgery 03/27/17 Jakcy Murry MD [address] [facility] [address] WARNER Sheridan [facility] [address] [place] [address] Ophthalmology 03/27/17 Puma Mckenzie MD [address] [place] [address] [address] [place] [address] Surgeon Orthopedic Surgery 07/11/19 Neha Jackson, PT Physical Therapist Physical Therapy 12/01/21 Stalin Arauz MD Consulting Physician Cardiology 12/08/22 Tiffany Rojas, PA [address] [place] [address] [address] [place] [address] Gastroenterology 12/30/22 Klaus Deshpande MD [address] [place] [address] [address] [place] [address] Consulting Physician Neurology 06/13/23
--- OUTSIDE RECORDS SUMMARY | 2024-09-18 15:39 | XMS_ITS | Encounter Summary ---
Author Organization [facility] Address [address] [place] [address] Phone Care Team Providers Care Physicians Assistant Name Role Phone Pepper Morgan MD Primary Care Provider + [phone] Hank Garibay MD Unavailable [phone] Jacky Murry MD Unavailable [phone] Puma Mckenzie MD Unavailable [phone] Neha Jackson PT Unavailable Unavailable Stalin Arauz MD Unavailable [phone] Tiffany Rojas Unavailable [phone] Klaus Deshpande MD Unavailable [phone] Andrea Waddell RN Unavailable [phone] Encounter Details Date Type Department Care Team (Late st Contact Info) Description 06/02/2020 Orders Only [facility] [address] [place] [address] Scanning, Provider Social History Tobacco [...] on file Legal Sex Female 4:33 AM BENCH JEWELER Gender Identity Not on file Sexual Orientation [...] COVID: Suspected 06/01/2020 06/01/2020 06/15/2020 3:07 AM BENCH JEWELER COVID: Suspected 04/21/2021 04/21/2021 04/21/2021 4:25 PM CDT COVID: Suspected 10/14/2021 10/14/2021 10/14/2021 1:53 PM CDT COVID: Suspected 02/16/2023 02/16/2023 02/16/2023 8:33 AM CDT COVID: Suspected 06/14/2023 06/14/2023 06/14/2023 6:44 PM BENCH JEWELER COVID: Suspected 06/24/2023 06/24/2023 06/24/2023 12:46 PM BENCH JEWELER documented as of this encounter Care Teams Physicians Assistant Relationship Specialty Start Date End Date Pepper Morgan MD PCP - General 09/16/16 Hank Garibay MD [address] [place] [address] [address] WARN[address] Sher[address] [place] [address] Surgeon Orthopedic Surgery 03/27/17 Jacky Murry MD [address] [place] [address] [address] WARN[address] [place] [address] Ophthalmology 03/27/17 Puma Mckenzie MD 4 [facility] [address] [place] [address] Surgeon Orthopedic Surgery 07/11/19 Neha Jackson, PT Physical Therapist Physical Therapy 12/01/21 Stalin Arauz MD Consulting Physician Cardiology 12/08/22 Tiffany Rojas PA 4 [facility] [address] [place] [address] Gastroenterology 12/30/22 Klaus Deshpande MD 4 [facility] [address] [place] [address] Consulting Physician Neurology 06/13/23 Andrea Waddell, XU [address] [place] [address] [address] [place] [address] Pressed Or Blown Glass Worker 01/11/24 01/14/24 documented as of this encounter
--- OUTSIDE RECORDS SUMMARY | 2024-09-18 15:41 | XMS_ITS | Continuity of Care Document ---
Author Organization [facility] Address [address] [facility] [address] [facility] [address] [place] [address] Phone Care Team Providers Care Purchasing Buyer Name Role Phone Kevonhawa RESENDEZ, Tamie Unavailable [...] Diagnoses Date Provider Providers Copied on Encounter [facility], [address], [place], [place], [address], [place] tel:[phone] SEC Antoine DIXON Professional Complete Exam (chief complaint) Presence of intraocular lensVitreous degeneration, left eyeDrusen (degenerative ) of macula, bilateralEpir etinal membrane (ERM) of right eyeKeratoconj unctivitis sicca, not specified as Sjogren's, bilateral 4 Kevon OD Tamie. [address] [address], [address], [place], [place], [address], [place]. tel:[phone] Referring Provider: Tamie Porter, [facility] [address], [place], [address] . tel:[phone] [facility], [address] [place], [place] [address] [address], [place], [place], [address], [place] tel:[phone] SEC [place] Professional YAG PO (chief complaint) Post op visit 4 Ryann OD Concetta. [address] [place], [place] [address], [address], [place], [place], [address], [place]. tel:[phone] Referring Provider: Tamie Porter, [address] [place], [place] [address]i [address], [place], [address] . tel:[phone] Office/outpa tient Visit, [facility], [address] [place], [place] [address] [address], [place], [place], [address], [place] tel:[phone] SEC [place] Professional YAG capsulotomy evaluation (chief complaint) Other secondary cataract, left eye Sep-3 4 Alexandria Enrico. [address] [place], [place] [address]b[address], [place], [place], [address], [place]. tel:[phone] Referring Provider: Tamie Porter, [address] [place] [address] [address], [place], [address] . tel:[phone] Office/outpa tient Visit, [facility], [address] [place], [place] [address] [address], [place], [place], [address], [place] tel:[phone] SEC [place] Professional Follow up visit (chief complaint) Other secondary cataract, left eyeBilateral artificial lens implant Sep- 4 Kevon OD Tamie. [address] [place], [place] [address] [address], [address], [place], [place], [address], [place]. tel:[phone] Referring Provider: Tamie Porter, [address], [place], [address] . tel:[phone] [facility], [address], [place], [place], [address], [place] tel:[phone] SEC [place] Professional Complete Exam (chief complaint) Macular hole of right eyeDry eye syndrome of right lacrimal glandDry eye syndrome of left lacrimal glandVitreous degeneration, left eye Jan- 3 Kevon OD Tamie. [address] [place] [address] [address], [address], [place], [place], [address], [place]. tel:[phone] Referring Provider: Tamie Lund OD [place], [address], [place], [address] . tel:[phone] [facility], [address] [place] [address] [address], [place], [place], [address], [place] tel:[phone] SEC [place] Professional Complete Exam (chief complaint) Vitreous degeneration, left eyePresence of intraocular lensOther secondary cataract, left eyeDrusen (degenerative ) of macula, bilateral Jan- 2 Jeanmarie Rico. [address], [place], [place], [address], [place]. tel:[phone] Referring Provider: Jacky Escobedo, [address], [place], [address] . tel:[phone] Office/outpa tient Visit, [facility], [address], [place], [place], [address], [place] tel:[phone] SEC [place] Professional hair like image (chief complaint) Vitreous degeneration, left eyePresence of intraocular lensOther secondary cataract, left eye Aug- 2 Jeanmarie Rico. [address] [facility], [address], [place], [place], [address], [place]. tel:[phone] Referring Provider: Jacky Escobedo, [address], [place], [address] . tel:[phone] [facility], [address], [place], [place], [address], [place] tel:[phone] SEC [place] Professional Complete Exam (chief complaint) Presence of intraocular lensMacular hole of right eyeOther secondary cataract, left eye 9 Jeanmarie Penason. [address], [place], [place], [address], [place]. tel:[phone] Referring Provider: Jacky Escobedo, [address] [facility] [address], [place], [address] . tel:[phone] [facility], [address], [place], [place], [address], [place] tel:[phone] SEC [place] Professional No Information 9 Jeanmarie Rico. [address], [place], [place], [address], [place]. tel:[phone] [facility], [address], [place], [place], [address], [place] tel:[phone] [place] Professional Complete Exam (chief complaint) No Information 7 Jeanmarie Rico. [address], [place], [place], [address], [place]. tel:[phone] Referring Provider: Michael Liz, [address], [place], [address] . tel:[phone] [facility], [address], [place], [place], [address], [place] tel:[phone] SEC [place] Professional Complete Exam (chief complaint) No Information 6 Jazzmine Rodriguez. [address], [place], [place], [address], . tel:[phone] Referring Provider: Michael Liz, [address] [facility] [address], [place], [address] . tel:[phone] [facility], [address], [place], [place], [address], [phone] SEC [place] Professional Blurry vision (chief complaint) No Information 5 Conrado Blackburn. [address] [facility], [address], [place], [address], [place]. tel:[phone] Referring Provider: Michael Liz, [address] [facility] [address], [place], [address] . tel:[phone] [facility], [address], [place], [place], [address], [place] [phone] SEC Antoine DESTINY Professional No Information 5 Jazzmine Rodriguez. [address] [facility], [facility] [place], [place], [address], . tel:[phone] Family History Family Member Type Diagnosis Age At Onset Mother Problem (finding) degenerative disorder o f macula Father Problem (finding) glaucoma Payers Payer name Insurance type Covered constitution party ID Authoriza tion(s) [place] [id number] [facility] Out Of State [id number] Social History Type Description Quantity Date Captured [...]
== END 2024-09-18 15:08 | disposition home or self-care (01) ==
PROVIDERS: Emergency Provider Nurse Practitioner Family; PCP Internal Medicine Geriatric Medicine
DX: N39.0 Urinary tract infection, site not specified (principal); I11.0 Hypertensive heart disease with heart failure; I50.9 Heart failure, unspecified; I48.91 Unspecified atrial fibrillation; G20.A1 Parkinson's disease without dyskinesia, without mention of fluctuations; K21.9 Gastro-esophageal reflux disease without esophagitis; M48.00 Spinal stenosis, site unspecified; Z85.820 Personal history of malignant melanoma of skin; Z96.653 Presence of artificial knee joint, bilateral; Z96.641 Presence of right artificial hip joint; Z87.891 Personal history of nicotine dependence
CPT/HCPCS: 81003; 87086; 99213; G0463

== ENCOUNTER 2024-10-17 09:28 | Emergency (ER) | payer MEDICARE, SELFPAY ==
[2024-10-17 09:50] VITALS: BP 95/57; PULSE 77; RESP 16; TEMP 36; O2SAT 100
--- OUTSIDE RECORDS SUMMARY | 2024-10-17 09:55 | XMS_ITS | Clinical Summary ---
Author Organization [facility] Address [address] [place] [address] Phone Care Team Providers Care Traveling Representative Name Role Phone Tristin Morgan MD Primary Care Provider [phone] Social History Tobacco Use Types Packs/Day Years [...] [place] [id number] MEDICARE [facility] Care Teams Traveling Representative Relationship Specialty Start Date End Date Tristin Morgan MD [address], [address] [place] [address] PCP - General Infectious Disease 07/25/19
--- OUTSIDE RECORDS SUMMARY | 2024-10-17 09:55 | XMS_ITS | Clinical Summary ---
Author Organization [facility] Address [address] [place] [address] Care Team Providers Care Project Production Engineer Name Role Phone Maude Harris AIRLINE TRANSPORT PILOT-GRAB HOOKER Primary Care Provider Unavailable Allergies Active Allergy Reactions Criticality Noted Date Comments Amlodipine Swelling 06/05/2024 Celecoxib Anaphylaxis High 06/05/2024 Ciprofloxacin Vomiting 06/05/2024 Duloxetine Hcl Other (see comments) 06/05/2024 Fatigue/Sleepiness Duloxetine 06/05/2024 Lisinopril Swelling 06/05/2024 Scopolamine Other (see comments) 06/05/2024 Mental Status Changes Carbidopa-Levodopa Other (see comments) 024 Nightmares Sulfa Antibiotics Anaphylaxis High 06/05/2024 Trazodone [...] Encounters Date Type Department Care Team Description 10/14/2024 Documentation Only [facility]. [address] [facility] [place] [address] Tristin Guillen MD 10/08/2024 Orders Only [facility]. [address] [facility] [place] [address] Delilah Cuba MA 09/16/2024 Documentation Only [facility]. [address] [place] [address] Tristin Guillen MD 09/16/2024 Documentation Only [facility]. [address] [place] [address] Tristin Guillen MD 08/19/2024 11:30 AM LEGAL COUNSEL Office Visit [facility]. 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 [address] [facility] [place] [address] Neha Cuba MA from Last 3 Months [...] Comments Blood Pressure 116/64 08/19/2024 11:33 AM LEGAL COUNSEL Pulse 61 08/19/2024 11:33 AM LEGAL COUNSEL Temperature 36.3 C (97.3 F) 08/19/2024 11:33 AM LEGAL COUNSEL Respiratory Rate - - Oxygen Saturation 95% 08/19/2024 11:33 AM LEGAL COUNSEL Inhaled Oxygen Concentration - - Weight 81.9 kg (180 lb 8 oz) 08/19/2024 11:33 AM LEGAL COUNSEL Height 152.4 cm (5') 08/19/2024 11:33 AM LEGAL COUNSEL Body Mass Index 35.25 08/19/2024 11:33 AM LEGAL COUNSEL Plan of Treatment Upcoming Encounters Date Type Department Care Team (Late st Contact Info) Description 10/28/2024 3:45 PM CDT Office Visit [facility]. [address] [facility] [place] [address] Tristin Guillen MD [address] [place] [address] [address] [place] [address] Health Maintenance Due Date Last Done Comments Pneumococcal Vaccine: 50+ Years Completed 04/26/2016, 02/18/2015, 05/17/2002 Influenza Vaccine Completed 03/23/2024, , 03/24/2023, Additional history exists Hepatitis B Vaccine Aged Out No longe r eligible based on patient's age to complete this topic [place] [address] Medicare Care Teams Project Production Engineer Relationship Specialty Start Date End Date Maude Harris, [employer] PIL[employer]-GRAB HOOKER [address] [place] [address] PCP - General Passenger Car Cleaning Supervisor 06/05/24
--- OUTSIDE RECORDS SUMMARY | 2024-10-17 09:55 | XMS_ITS | Encounter Summary ---
Author Organization [facility] Address [address] [place] [address] Care Team Providers Care Odd Job Worker Name Role Phone Pepper Morgan MD Primary Care Provider + [phone] Hank Garibay MD Unavailable [phone] Jacky Murry MD Unavailable [phone] Puma Mckenzie MD Unavailable [phone] Neha Jackson PT Unavailable Unavailable Stalin Arauz MD Unavailable [phone] Tiffany Rojas Unavailable [phone] Klaus Deshpande MD Unavailable [phone] Andrea Waddell RN Unavailable [phone] Reason for Visit * Reason Onset Date Comments Scheduling Appointments 01/27/2021 confirme d injection Encounter Details Date Type Department Care Team (Late st Contact Info) Description 01/27/2021 Telephone [facility] [address] [place] [address] Chata Benedict RT Scheduling Appointments (confirmed injection) [...] on file 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 Gender Identity Not on file Sexual Orientation [...] COVID: Suspected 06/14/2023 06/14/2023 06/14/2023 6:44 PM PENCILS WASHER COVID: Suspected 06/24/2023 06/24/2023 06/24/2023 12:46 PM PENCILS WASHER documented as of this encounter Care Teams Odd Job Worker Relationship Specialty Start Date End Date Pepper Morgan MD PCP - General 09/16/16 Hank Garibay MD 4 [facility] [address] [place] [address] Surgeon Orthopedic Surgery 03/27/17 Jacky Murry MD [address] [facility] [address] [place] [address] Ophthalmology 03/27/17 Puma Mckenzie MD [address] [facility] [address] [place] [address] Surgeon Orthopedic Surgery 07/11/19 Neha Jackson, PT Physical Therapist Physical Therapy 12/01/21 Stalin Arauz MD Consulting Physician Cardiology 12/08/22 Tiffany Rojas PA [address] [place] [address] [address] [place] [address] Gastroenterology 12/30/22 Klaus Deshpande MD [address] [place] [address] [address] [place] [address] Consulting Physician Neurology 06/13/23 Andrea Waddell, XU [address] [place] [address] [address] [place] [address] Lift Electrician 01/11/24 01/14/24 documented as of this encounter
--- OUTSIDE RECORDS SUMMARY | 2024-10-17 09:55 | XMS_ITS | Continuity of Care Document ---
Author Organization [facility] Address [address] [place] [address] Phone Care Team Providers Care Filterer Name Role Phone Kevonhawa RESENDEZ, Tamie Unavailable [...] Diagnoses Date Provider Providers Copied on Encounter [facility], [address], [place], [place], [address], [place] tel:[phone] SEC Antoine DIXON Professional Complete Exam (chief complaint) Presence of intraocular lensVitreous degeneration, left eyeDrusen (degenerative ) of macula, bilateralEpir etinal membrane (ERM) of right eyeKeratoconj unctivitis sicca, not specified as Sjogren's, bilateral 4 Kevon OD Tamie. [address] [address], [address], [place], [place], [address], [place]. tel:[phone] Referring Provider: Tamie Porter, [facility] [address], [place], [address] . tel:[phone] [facility], [address] [place], [place] [address] [address], [place], [place], [address], [place] tel:[phone] SEC Anto[place] Professional YAG PO (chief complaint) Post op visit 4 Ryann OD Concetta. [address] [place], [place] [address], [address], [place], [place], [address], [place]. tel:[phone] Referring Provider: Tamie Porter, [address] [place], [place] [address] [address], [place], [address] . tel:[phone] Office/outpa tient Visit, [facility], [address] [place], [place] [address] [address], [place], [place], [address], [place] tel:[phone] SEC [place] Professional YAG capsulotomy evaluation (chief complaint) Other secondary cataract, left eye Sep-3 4 Rhame Enrico. [address] [place], [place] [address], [address], [place], [place], [address], [place]. tel:[phone] Referring Provider: Tamie Porter, [address] [place] [address] [address], [place], [address] . tel:[phone] Office/outpa tient Visit, [facility], [address] [place], [place] [address] [address], [place], [place], [address], [place] tel:[phone] SEC [place] Professional Follow up visit (chief complaint) Other secondary cataract, left eyeBilateral artificial lens implant Sep- 4 Kevon OD Tamie. [address] [place], [place] [address] [address], [address], [place], [place], [address], [place]. tel:[phone] Referring Provider: Tamie Porter, [address], [place], [address] . tel:[phone] [facility], [address], [place], [place], [address], [place] tel:[phone] SEC [place] Professional Complete Exam (chief complaint) Macular hole of right eyeDry eye syndrome of right lacrimal glandDry eye syndrome of left lacrimal glandVitreous degeneration, left eye Jan- 3 Kev[address] OD Tamie[address] [place] [address] [address], [address], [place], [place], [address], [place]. tel:[phone] Referring Provider: Tamie Lund OD [place], [address], [place], [address] . tel:[phone] [facility], [address] [place] [address] [address], [place], [place], [address], [place] tel:[phone] SEC [place] Professional Complete Exam (chief complaint) Vitreous degeneration, left eyePresence of intraocular lensOther secondary cataract, left eyeDrusen (degenerative ) of macula, bilateral Jan- 2 Jeanmarie Rico. [address], [address], [place], [place], [address], [place]. tel:[phone] Referring Provider: Jacky Escobedo, [address], [place], [address] . tel:[phone] Office/outpa tient Visit, [facility], [address], [place], [place], [address], [place] tel:[phone] SEC [place] Professional hair like image (chief complaint) Vitreous degeneration, left eyePresence of intraocular lensOther secondary cataract, left eye Aug- 2 Jeanmarie Rico. [address] [facility], [address], [place], [place], [address], [place]. tel:[phone] Referring Provider: Jacky Escobedo, [address], [place], [address] . tel:[phone] [facility], [address], [place], [place], [address], [place] tel:[phone] SEC [place] Professional Complete Exam (chief complaint) Presence of intraocular lensMacular hole of right eyeOther secondary cataract, left eye 9 Jeanmarie Penason. [address], [place], [place], [address], [place]. tel:[phone] Referring Provider: Jacky Escobedo, [address] [facility] [address], [place], [address] . tel:[phone] [facility], [address], [place], [place], [address], [place] tel:[phone] SEC [place] Professional No Information 9 Jeanmarie Rico. [address], [place], [place], [address], [place]. tel:[phone] [facility], [address], [place], [place], [address], [place] tel:[phone] SEC [place] Professional Complete Exam (chief complaint) No Information 7 Jeanmarie Rico. [address], [place], [place], [address], [place]. tel:[phone] Referring Provider: Michael Liz, [address], [place], [address] . tel:[phone] [facility], [address], [place], [place], [address], [place] tel:[phone] SEC [place] Professional Complete Exam (chief complaint) No Information 6 Jazzmine Rodirguez. [address], [place], [place], [address], . tel:[phone] Referring Provider: Michael Liz, [address] [facility] [address], [place], [address] . tel:[phone] [facility], [address], [place], [place], [address], [phone] SEC [place] Professional Blurry vision (chief complaint) No Information 5 Conrado Blackburn. [address] [facility], [address], [place], [address], [place]. tel:[phone] Referring Provider: Michael Liz, [address] [facility] [address], [place], [address] . tel:[phone] [facility], [address], [place], [place], [address], [place] [phone] SEC Antoine DESTINY Professional No Information 5 Jazzmine Rodriguez. [address] [facility], [facility] [place], [address], . tel:[phone] Family History Family Member Type Diagnosis Age At Onset Mother Problem (finding) degenerative disorder o f macula Father Problem (finding) glaucoma Payers Payer name Insurance type Covered alliance party ID Authoriza tion(s) [place] [id number] [facility] Out Of State [id number] Social History Type Description Quantity Date Captured [...]
--- OUTSIDE RECORDS SUMMARY | 2024-10-17 09:55 | XMS_ITS | Encounter Summary ---
Author Organization [facility] Address [address] [place] [address] Phone Care Team Providers Care Senior Assistant Manager Name Role Phone Pepper Morgan MD Primary Care Provider [phone] Melissa Hoyt RN Unavailable Hank Garibay MD Unavailable [phone] Jacky Murry MD Unavailable [phone] Puma Mckenzie MD Unavailable [phone] Neha Jackson PT Unavailable Unavailable Stalin Arauz MD Unavailable [phone] Tiffany Rojas Unavailable [phone] Klaus Deshpande MD Unavailable [phone] Andrea Waddell RN Unavailable [phone] Encounter Details Date Type Department Care Team (Late st Contact Info) Description 01/17/2017 Orders Only [facility] [address] [place] [address] Pepper Morgan MD [address] [place] [address] Mixed hyperlipidemia (Primary Dx) Social History Tobacco Use Types Packs/Day Years Used Date Smoking Tobacco: Former Smokeless Tobacco: Never Alcohol Use Standard Drinks/Week Comments Yes 0 (1 standard drink = 0.6 oz pur e alcohol) Comments Unknown Sex and Gender Information Value Date Recorded Sex Assigned at Not on file Legal Sex Female 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 As no Triglycerides testing was ordered, interpret results with caution. Desirable range <100 mg/dL for patients with CHD or diabetes and <70 mg/dL for diabetic patients with known heart disease. Blood specimen (specimen) 03/20/2017 7:46 AM CDT 03/20/2017 7:46 AM CDT Narrative [facility] - 03/21/2017 3:24 AM CDT FASTING:YES Resulting Agency Comment Performing Organization Information: Site ID: [place] Name: [facility] Address: [address] [facility] [place] [address] Director: Cedric Palm D.O., MPH us Pepper Morgan MD LAB BLOOD ORDERABLES Final Result [email or web address] [place] Perry[place] armendariz * (ABNORMAL) Comprehensive metabolic panel (03/20/2017 7:46 AM CDT) Glucose 90 65 - 99 mg/dL [facility] Comment: Fasting reference interval BUN 19 7 - 25 mg/dL [facility] [place] Creatinine 0.72 0.60 - 0.93 mg/dL [facility] [place] Comment: For patients >49 years of age, the reference limit for Creatinine is approximately 13% higher for people identified as -Wallisian. eGFR NON-AFR. [place] 80 > OR = 60 mL/min/1 .73m2 [facility] [place] EGFR 92 > OR = 60 mL/min/1 .73m2 [facility] [place] BUN/creat [...] [place] Calcium 9.4 8.6 - 10.4 mg/dL [facility] [place] Protein, sr 6.4 6.1 - 8.1 g/dL [facility] [place] Albumin 3.8 3.6 - 5.1 g/dL [facility] [place] Globulin 2.6 1.9 - 3.7 g/dL (calc) [facility] [place] Alb/glob ratio 1.5 1.0 - 2.5 (calc) [facility] [place] Bilirubin, total 0.5 0.2 - 1.2 mg/dL [facility] [place] Alk phos 103 33 - 130 U/L [facility] [place] AST 9(L) 10 - 35 U/L [facility] [place] ALT (SGPT) 7 6 - 29 U/L [facility] [place] Blood specimen (specimen) 03/20/2017 7:46 AM CDT 03/20/2017 7:46 AM CDT Narrative [facility] - 03/21/2017 3:24 AM CDT FASTING:YES Resulting Agency Comment Performing Organization Information: Site ID: [place] Name: [facility] Address: [address] [place] [address] Director: Cedric Palm D.O., MPH us Pepper Morgan MD LAB BLOOD ORDERABLES Final Result [facility] [place] documented in this encounter Visit Diagnoses Diagnosis Mixed hyperlipidemia- Primary documented in this encounter Additional Health Concerns Infection Onset Date Last Indicated Resolved Time COVID: Suspected 06/01/2020 06/01/2020 06/15/2020 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 COVID: Suspected 04/21/2021 04/21/2021 04/21/2021 4:25 PM CDT COVID: Suspected 10/14/2021 10/14/2021 10/14/2021 1:53 PM CDT COVID: Suspected 02/16/2023 02/16/2023 02/16/2023 8:33 AM CDT COVID: Suspected 06/14/2023 06/14/2023 06/14/2023 6:44 PM WOODWIND INSTRUMENT REPAIRER COVID: Suspected 06/24/2023 06/24/2023 06/24/2023 12:46 PM WOODWIND INSTRUMENT REPAIRER documented as of this encounter Care Teams Senior Assistant Manager Relationship Specialty Start Date End Date Pepper Morgan MD PCP - General 09/16/16 Melissa Hoyt, RN [address] [place] [address] [employer] Salesperson 02/21/17 02/21/17 Hank Garibay MD [address] [place] [address] [address] [place] [address] Surgeon Orthopedic Surgery 03/27/17 Jacky Murry MD [address] [place] [address] [address] [facility] [address] [place] [address] Ophthalmology 03/27/17 Puma Mckenzie MD [address] [place] [address] [address] WARNER [address] [address] Surgeon Orthopedic Surgery 07/11/19 Neha Jackson, PT Physical Therapist Physical Therapy 12/01/21 Stalin Arauz MD Consulting Physician Cardiology 12/08/22 Tiffany Rojas PA [address] [facility] [address] [place] [address] Gastroenterology 12/30/22 Klaus Deshpande MD [address] [facility] [address] [place] [address] Consulting Physician Neurology 06/13/23 Andrea Waddell, XU [address] [place] [address] [address] [place] [address] Wholesale Parts Salesperson 01/11/24 01/14/24 documented as of this encounter
--- OUTSIDE RECORDS SUMMARY | 2024-10-17 09:56 | XMS_ITS | Clinical Summary ---
Author Organization [facility] Address [address] [place] [address] Care Team Providers Care Baseball Club Manager Name Role Phone Pepper Morgan MD Primary Care Provider + [phone] Hank Garibay MD Unavailable [phone] Jacky Murry MD Unavailable [phone] Puma Mckenzie MD Unavailable [phone] Neha Jackson PT Unavailable Unavailable Stalin Arauz MD Unavailable [phone] Tiffany Rojas PA Unavailable [phone] Klaus Deshpande MD Unavailable [phone] Allergies Active Allergy Reactions Criticality Noted Date Comments Amlodipine Swelling Medium Celecoxib Anaphylaxis High Ciprofloxacin Hcl Vomiting Low 01/06/2023 Duloxetine Fatigue Low 11/30/2020 Sleepiness, tiredness possibly related to 20 mg morning dose of this medicine discontinued 11/30/2020 Duloxetine Hcl Unknown 08/31/2023 Lisinopril Swelling Medium Scopolamine Mental status changes High 02/21/2017 Delirium postop after joint replacement due to this medicine Sulfa (Sulfonamide Antibiotics) Anaphylaxis High Trazodone Swelling [...] total) by mouth daily 30 tablet 11 025 2025 Active furosemide (LASIX) 80 mg tablet Take 1 tablet (80 mg total) by mouth 2 (two) times a day 60 tablet 11 Active metOLazone (ZAROXOLYN) 5 mg tablet Take 1 tablet (5 mg total) by mouth 2 (two) times a week 15 tablet 3 025 Active gabapentin (NEURONTIN) 100 mg capsule Take 1 capsule (100 mg total) by mouth 3 (three) times a day 90 capsule 5 025 2024 Active Additional Information Patient not taking.Reported on 09/23/2024 cyanocobalamin (Vitamin B-12) 500 mcg tablet Take 1 tablet (500 mcg total) by mouth daily Active aspirin 81 mg chewable tabletIndicatio ns:coronary artery disease Take 1 tablet (81 mg total) by mouth daily 30 tablet 11 025 2025 Active dapagliflozin propanediol (FARXIGA) 10 mg tabletIndicatio ns:Heart Failure Take 1 tablet (10 mg total) by mouth daily 90 tablet 3 025 Active spironolactone (ALDACTONE) 25 mg tablet Take [...] HELPS ABSORPTION 100 tablet 1 025 Active Additional Information Patient not taking.Reported on 10/03/2024 carbidopa-levod opa (SINEMET) 25-100 mg per tabletIndicatio ns:Parkinsonism Take 1 tablet by mouth 3 (three) times a day 90 tablet 3 025 Active cyclobenzaprine (FLEXERIL) 10 mg tablet Take 1 tablet (10 mg total) by mouth nightly as needed for muscle spasms 30 tablet 022 2021 Discontinued clopidogreL (PLAVIX) 75 mg tabletIndicatio ns:coronary artery disease Take 1 tablet (75 mg total) by mouth daily 30 tablet 11 025 2024 Discontinued(S top Taking at Discharge) Active Problems Problem Noted Date Diagnosed Date At high risk for injury related to fall 08/27/19 Chronic bronchitis, unspecified chronic bronchit is type 08/26/2024 Presence of Amulet left atrial appendage closure device 07/31/2024 Chronic blood loss anemia 02/08/2024 CKD stage 3b, GFR 30-44 ml/min 01/11/2024 Bleeding hemorrhoids 01/11/2024 Gouty arthritis of foot 11/24/2023 Atherosclerosis of upper [place] ar teries of extremities with intermittent claudication, bilateral legs 07/31/2023 [place] of macula of both eyes 05/30/2023 Mild persistent asthma 03/13/2023 Assessment & Plan (06/13/2023 7:53 PM AUTOMATION MACHINE BUILDER): Controlled on advair and albuterol. No acute [...] 07/25/2022 Assessment & Plan (06/13/2023 7:50 PM AUTOMATION MACHINE BUILDER): BP soft but stable in office today [...] propranolol. Postural kyphosis of cervicothoracic region 01/2022 retirement current use of anticoagulant 2 Peripheral arterial [...] pharmacy. 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 Will discuss additional treatment options with Dr. Morgan. Chronic GERD 11/02/2013 Overview (09/22/2016): Acid reflux Assessment & Plan (06/24/2019 9:31 AM AUTOMATION MACHINE BUILDER): Symptoms have improved with protonix. She has had no further issues. We will continue with present regimen. Benign hypertension 11/02/2013 Overview (09/23/2016): Benign essential HTN Assessment & Plan (06/13/2023 7:49 PM AUTOMATION MACHINE BUILDER): BP soft but stable in office today [...] above. Assessment & Plan (06/24/2019 12:50 PM AUTOMATION MACHINE BUILDER): Well controlled will continue present regimen. Restless [...] 24 hours. Will rx augmentin as directed. [place] diet, stay hydrated. Continue immodium as needed. ADDENDUM: patient states augmentin made symptoms worse, stop all abx and start budesonide as directed. Follow in 2 weeks. Parkinson's disease (tremor, stiffness, slow motion, unstable posture) 01/24/2022 12/08/2022 Lymphedema 12/06/2021 01/24/2022 Tremor 12/06/2021 04/10/2023 Overview (01/24/2022): Cogwheel tremor right hand greater than left consistent with Parkinson's treating for her restless leg with Mirapex with relief intermediate frame tender (current) use of opiate analgesic 11/30/2021 01/24/2022 [...] 022 Assessment & Plan (08/11/2021 9:51 AM AUTOMATION MACHINE BUILDER): Patient presents with recurrent issues of left [...] consider checking C1 esterase and referral to infectious disease physician. However, patient states she has done this in the past and w/u was benign. She will call or return sooner if needed. Shortness of breath 04/21/2021 08/27/19 25 Assessment & Plan (06/13/2023 7:51 PM AUTOMATION MACHINE BUILDER): More likely due to CHF and 7 [...] sooner if needed. Atrial fibrillation 04/21/2021 08/27/19 25 Assessment & Plan (02/06/2023 8:07 PM CDT): [...] 06/01/2021 Assessment & Plan (06/02/2020 11:07 AM AUTOMATION MACHINE BUILDER): Patient presents with congestion, purulent discharge, ear pain/pressure and PND most consistent with acute sinusitis. She reports she has been using sinus rinse, flonase and Muccinex OTC. COVID-19 rapid testing negative and no known COVID-19 exposure. She will continue quarantine until symptoms improving. She will begin antibiotic therapy and complete as prescribed. She will call with persistent or unresolved symptoms. retirement (current) use of n on-steroidal anti-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s (nsaid) 11/18/2019 06/01/2021 Constipation due to opioid therapy 11/18/2019 01/24/2022 Edema 08/08/2019 11/18/2019 Assessment & Plan (08/08/2019 10:37 AM AUTOMATION MACHINE BUILDER): Improved with lasix. We will repeat BMP to monitor renal function. She remains on aldactone which we will continue. She was encouraged to keep legs elevated while at rest and to avoid additional salt intake. If edema returns can prescribe lasix prn if renal function is stable Acute low back pain 08/08/2019 06/01/20 Assessment & Plan (08/08/2019 12:31 PM AUTOMATION MACHINE BUILDER): Most likely secondary to degenerative disc disease. [...] 08/26/2024 Assessment & Plan (08/08/2019 10:35 AM AUTOMATION MACHINE BUILDER): Noted post-operatively. She has been on iron [...] management. Assessment & Plan (06/24/2019 12:50 PM AUTOMATION MACHINE BUILDER): She has plans for rt hip replacement later this month. At this time will continue with noe for pain. She chose not to pursue [...] Encounters Date Type Department Care Team Description 10/10/2024 11:20 AM CDT [address] [address] 10/03/2024 7:57 AM CDT - 10/03/2024 11:59 PM CDT Hospital Encounter [facility] Card[facility] [address] [place] [address] Presence of Amulet left atrial appendage closure device Discharge Disposition: Discharge to home or self care 09/26/2024 Telephone [facility] Orthopedics and Sports Medicine [address] [facility] [address] [place] [address] Mckenzie Collins MA 09/23/2024 1:45 PM CDT Orders Only [facility] [address] [place] [address] 09/23/2024 10:45 AM CDT Office Visit [facility] [address] [facility] [address] [place] [address] Klaus Deshpande MD Restless legs syndrome (Primary Dx); Essential tremor 09/18/2024 Telephone [facility] [address] [facility] [address] [place] [address] Pepper Morgan MD Blood in Urine 09/18/[address] [facility] at [address] [place] [address] Stalin Arauz MD Presence of Amulet left atrial appendage closure device (Primary Dx) 09/16/2024 1:00 PM CDT Lab [address] [address] 09/16/2024 11:[address] CDT Orders Only [facility] [address] [place] [address] 09/16/[address] [facility] at [address] [place] [address] Mckenzie Reyes MA 09/09/2024 9:00 AM CDT Orders Only [facility] [address] [place] [address] 09/03/2024 2:45 PM CDT Office Visit [facility] at [address] [place] [address] Maude Harris NP Chronic atrial fibrillation (HCC) (Primary Dx) 09/02/2024 9:00 AM CDT Orders Only [facility] [address] [place] [address] ISTAP type 3 skin tear of left upper arm 08/26/2024 5:01 PM CDT - 08/26/2024 6:34 PM CDT Emergency [facility] Emergency Department [address] [place] [address] Laceration of left upper extremity, initial encounter (Primary Dx) Discharge Disposition: Discharge to home or self care 08/26/2024 1:00 PM CDT Office Visit [facility] [address] [facility] [address] [place] [address] Pepper Morgan MD Annual physical exam (Primary Dx); At high risk for injury related to fall; Right leg weakness; Spinal stenosis of lumbar region with neurogenic claudication; Essential tremor; Gouty arthritis of foot; Gait disturbance; ISTAP type 3 skin tear of left upper arm; Atherosclerosis of upper sk[place] arteries of extremities with intermittent claudication, bilateral legs; Class 1 obesity with serious comorbidity and body mass index (BMI) of 33.0 to 33.9 in adult, unspecified obesity type; Acute on chronic heart failure with preserved ejection fraction (HCC); Benign hypertension; Chronic atrial fibrillation (HCC); Presence of Amulet left atrial appendage closure device; retirement current use of anticoagulant; Mild persistent asthma without complication; History of malignant melanoma; Purpura; CKD stage 3b, GFR 30-44 ml/min (HCC); Chronic GERD; Chronic blood loss anemia; Bleeding hemorrhoids; Bariatric surgery status; Immunization counseling; Chronic bronchitis, unspecified chronic bronchitis type (HCC) 08/21/2024 2:45 PM AUTOMATION MACHINE BUILDER - 08/21/2024 11:59 PM AUTOMATION MACHINE BUILDER Hospital Encounter [facility] [address] [place] [address] Stage 3 chronic kidney disease, unspecified whether stage 3a or 3b CKD (HCC); Essential (primary) hypertension; Chronic systolic (congestive) heart failure (HCC); Hypertensive chronic kidney disease with stage 1 through stage 4 chronic kidney disease, or unspecified chronic kidney disease Discharge Disposition: Discharge to home or self care 08/15/2024 1:15 PM AUTOMATION MACHINE BUILDER Office Visit [facility] Orthopedics and Sports Medicine [address] [place] [address] [address] [place] [address] Jadyn Hobson PA Osteoarthritis of right glenohumeral joint (Primary Dx); Right rotator cuff tear arthropathy 08/15/2024 Orders Only [facility] Orthopedics and Sports [address] [place] [address] Jadyn Hobson PA 08/15/2024 Orders Only [facility] Orthopedics [facility] Sports [address] [place] [address] Jadyn Hobson PA Osteoarthritis of right glenohumeral joint (Primary Dx); Right rotator cuff tear arthropathy; Complete tear of right rotator cuff, unspecified whether traumatic 08/13/2024 Telephone [facility] [address] [facility] [address] [place] [address] Pepper Morgan MD 08/07/2024 Telephone [facility] [address] [facility] [address] [place] [address] Pepper Morgan MD Medication error 08/02/2024 MARIO IP Outreach [facility] Accountable Care Organization [address] [place] [address] Bruna Vidal MA 07/31/2024 1:10 PM AUTOMATION MACHINE BUILDER - 07/31/2024 2:40 PM AUTOMATION MACHINE BUILDER Surgery [facility] Cardiac Catheterization Lab [address] [place] [address] Stalin Arauz MD PERC JUDY CLOSE W/IMPLANT [id number] 07/31/2024 10:52 AM AUTOMATION MACHINE BUILDER Anesthesia Event [facility] Cardiac Catheterization Lab [address] [place] [address] [id number] Maria Guadalupe Talavera MD Barnhart, Lynlee Jo, MONUMENT MASON 07/31/2024 9:00 AM AUTOMATION MACHINE BUILDER - 07/31/2024 11:59 PM AUTOMATION MACHINE BUILDER Hospital Encounter [facility] Cardiac Catheterization Lab [address] [place] [address] Discharge Disposition: Discharge to home or self care 07/31/2024 7:44 AM AUTOMATION MACHINE BUILDER - 08/01/2024 12:24 PM AUTOMATION MACHINE BUILDER Hospital Encounter [facility] [id number] [place] [address] Stalin Arauz MD Paroxysmal atrial fibrillation (HCC) Discharge Disposition: Discharge to home or self care 07/26/2024 Orders Only [facility] Non-invasive Cardiac Diagnostic Testing [address] [place] [address] Stalin Arauz MD Paroxysmal atrial fibrillation (HCC) (Primary Dx) 07/24/2024 Telephone [facility] [address] [place] [address] Pepper Morgan MD from Last 3 Months Immunizations Immunization Administration Dates Next Due COVID-19 mRNA ([employer]) 0.3 m L (30 mcg) vaccine (12 [...] SARS-CoV-2 Monovalent Vaccination (12+ Yrs) PURPLE 03/14/2021,09/06/2020,08/15/2020 [employer] Sars-Cov-2 Bivalent V accination (12+ YRS) 04/01/2022 [...] The successful right hip replacement Dr. Mckenzie [place] FLUORO GUIDED INJECTION HIP LEFT 01/28/2021 Left REPLACEMENT TOTAL KNEE Right TOTAL HIP ARTHROPLASTY 11/01/[address] Mckenzie, [facility]. IMPLANTABLE CARDIAC DEVICE 07/31/2024 N/A Procedure: PERC JUDY CLOSE W/IMPLANT [id number]; Surgeon: Stalin Arauz MD; Location: CARDIAC IT APPLICATION DEVELOPMENT MANAGER; Service: Cardiovascular; Laterality: N/A; Medical devices from [...] 0.6 oz pur e alcohol) [facility] [employer] Answer Date Recorded In the past 12 months has Other Machine, gas, oil, or water [place] threatened to shut off services in your [...] attend chur ch or tenriism services? Never 04/11/2024 Do you [...] any time in the past 12 m [facility], were you homeless or living in a fpc (including now)? No 04/11/2024 Personal Safety Answer Date Recorded Have you ever been in or are you currently in a harmful physical or emotional relationship or is someone making you feel afraid or unsafe? Denies 10/03/2024 Education Answer Date Recorded What is the highest level of school you have completed or the highest degree you have received? High school graduate 04/11/2024 Comments No Sex and Gender Information Value Date Recorded Sex Assigned at Not on file Legal Sex Female 4:33 AM AUTOMATION MACHINE BUILDER Gender Identity Not on file Sexual Orientation Not on file Occupation Industry Job Start Date Job End Date retired Not on file Not on file Not on file Obstetrics History Last Filed Vital Signs Vital Sign Reading Time Taken Comments Blood Pressure 102/60 10/03/2024 10:50 AM CDT Pulse 79 10/03/2024 10:50 AM CDT Temperature 36.2 C (97.1 F) 10/03/2024 8:17 AM CDT Respiratory Rate 23 10/03/2024 10:50 AM CDT Oxygen Saturation 99% 10/03/2024 10:50 AM CDT Inhaled Oxygen Concentration - - Weight 77.6 kg (171 lb) 10/03/2024 8:17 AM CDT Height 152.4 cm (5') 10/03/2024 8:17 AM CDT Body Mass Index 33.4 10/03/2024 8:17 AM CDT Plan of Treatment Health Maintenance Due Date Last Done Comments Hepatitis B Screening 11/24/1953 Covid-19 Vaccine (2023-2 5 season) 2024 03/24/2023, 04/01/2022, 01/11/2022, Additional history exists Depression Screening 08/26/2025 08/26/2024, 07/13/2023, 07/13/2023, Additional history exists Well Visit 65+ 08/26/2025 08/26/2024, 06/20, 06/08/2022, Additional history exists Fall Risk Assessment 10/03/2025 10/03/2024, 08/26/2024, 07/13/2023, Additional history exists DTaP/Tdap/Td Vaccine (3 - [...] of life. Medical Devices Implanted Type Area Dental Ceramist Helper Device Identifier Shelf Expiration Date Model / Serial / Lot Depuy Orthopaed[employer] Inc [id number] [place] 52mm Sector Hip Shell Acetabular Gription Sterile Latex Free - [id number] Implanted:Qty: 1 on 07/10/2019 by Puma Mckenzie MD at [facility] Right: Hip [employer] 05/18/2029 [id number] / / [id number] Dep[employer] [id number] [place] 52mm 36mm Hip Neutral Liner Acetabular Altrx Sterile Latex Free - [id number] Implanted:Qty: 1 on 07/10/2019 by Puma Mckenzie MD at [facility] Right: Hip [employer] 04/18/2024 [id number] / / [id number] [employer] 1217-25-500 [place] 6.5mm 25mm Acetabular Cancellous Screw Bone Sterile - [id number] Implanted:Qty: 1 on 07/10/2019 by Puma Mckenzie MD at [facility] Right: Hip [employer] 12/16/2028 1217-25-500 / / [id number] Dep[employer] [id number] Articul/Ernesto 36mm Cementless Hip +1.5mm 12/14 Taper Head Femoral Latex Free - [id number] Implanted:Qty: 1 on 07/10/2019 by Puma Mckenzie MD at [facility] Right: Hip [employer] 03/18/2024 [id number] / / [id number] [employer] [id number] Actis Collared Hip 12/14 6 Standard Offset Stem Femoral - [id number] Implanted:Qty: 1 on 07/10/2019 by Puma Mckenzie MD at [facility] Right: Hip [employer] 06/18/2029 [id number] / / [id number] Dep[employer] [place] 6.5mm 35mm Acetabular Cancellous Screw Bone Sterile 1217-35-500 - [id number] Implanted:Qty: 1 on 11/01/2021 by Puma Mckenzie MD at [facility] Left: Hip [employer] 08/17/2031 1217-35-500 / / [id number] [employer] [id number] [place] 52mm 36mm Hip Neutral Liner Acetabular Altrx Sterile Latex Free - [id number] Implanted:Qty: 1 on 11/01/2021 by Puma Mckenzie MD at [facility] Left: Hip [employer] 08/16/2026 [id number] / / [id number] Dep[employer] [place] 52mm Sector Hip Shell Acetabular Gription Sterile Latex Free [id number] - [id number] Implanted:Qty: 1 on 11/01/2021 by Puma Mckenzie MD at [facility] Left: Hip [employer] [id number] 08/17/2031 [id number] / / [id number] [employer] [id number] Actis Collar Hip 7 High Offset Stem Femoral - [id number] Implanted:Qty: 1 on 11/01/2021 by Puma Mckenzie MD at [facility] Left: Hip [employer] [id number] 08/17/2031 [id number] / / [id number] Dep[employer] Articul/Ernesto 36mm Cementless Hip +1.5mm /14 Taper Head Femoral Latex Free [id number] - [id number] Implanted:Qty: 1 on 11/01/2021 by Puma Mckenzie MD at [facility] Left: Hip [employer] 09/16/2026 [id number] / / [id number] [employer] Protege Gps Exprt 9mm .079in 60mm 80cm Otw Delivery System Self Mqqn52-68-12-88 - [id number] Implanted:Qty: 1 on 02/18/2022 by Stalin Arauz MD at [facility] [employer] 10/22/2024 [id number] 0 -80 / / [id number] [employer] Marshall Angio-Seal Evolution 6fr Vascular Closure [id number] - [id number] Implanted:Qty: 1 on 02/18/2022 by Stalin Arauz MD at [facility] 06/18/2022 [id number] / / [id number] [employer] Zilver Ptx 6mm 120mm 125cm Drug Elute Otw Delivery System [id number] - [id number] Implanted:Qty: 1 on 02/18/2022 by Stalin Arauz MD at [facility] [employer] Inc 10/21/2023 [id number] / / [id number] [employer] Zilver Ptx 6mm 100mm 125cm Otw Preload Delivery System Self [id number] - [id number] Implanted:Qty: 1 on 02/18/2022 by Stalin Arauz MD at [facility] Medical [facility] 11/09/2023 [id number] / / [id number] Med[employer]onic Inc Everflex Entrust 8mm 60mm 120cm Self Expand Triaxial Low Profile - [id number] Implanted:Qty: 1 on 02/18/2022 by Stalin Arauz MD at [facility] [employer] 07/26/2024 [id number] 0 -120 / / [id number] [employer] Marshall Angio-Seal Evolution 6fr Vascular Closure [id number] - [id number] Implanted:Qty: 1 on 03/24/2022 by Stalin Arauz MD at [facility] 05/18/2022 [id number] / / [id number] [employer] Occluder Cvasc Judy Flexible Braided Amplatzer Amulet 20mm Nitinol [id number] - [id number] Implanted:Qty: 1 on 07/31/2024 by Stalin Arauz MD at [facility] 12/16/2028 9-ACP2-00 7-0 20 / / [id number] Procedures Procedure Name Priority Date/Time Associated Diagnosis Comments EGFR Routine 10/10/2024 11:30 AM CDT URINALYSIS, MICROSCOPIC ONLY Routine 10/10/2024 11:30 AM CDT URINALYSIS AND REFLEX TO MICROSCOPIC Routine 10/10/2024 11:30 AM CDT RENAL FUNCTION PANEL Routine 10/10/2024 11:30 AM CDT TRANSESOPHAGEAL ECHO (AZEEM) W DOPPLER/CF WO CONTRAST Routine 10/03/2024 9:06 AM CDT Presence of Amulet left atrial appendage closure device CLINICAL PATHOLOGY REPORT Routine 09/16/2024 1:08 PM [...] Read Routine (OP Routine) 08/21/2024 3:38 PM AUTOMATION MACHINE BUILDER Stage 3 chronic kidney disease, unspecified whether stage 3a or 3b CKD (HCC) Essential (primary) hypertension Chronic systolic (congestive) heart failure (HCC) Hypertensive chronic kidney disease with stage 1 through stage 4 chronic kidney disease, or unspecified chronic kidney disease TX ARTHROCENTESIS ASPIR&/INJ MAJOR JT/BURSA W/O US Routine 08/15/2024 1:15 PM AUTOMATION MACHINE BUILDER 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 TRANSTHORACIC ECHO (TTE) LIMITED/FOLLOW UP W LTD DOPPLER/CF WO CONTRAST Routine 08/01/2024 8:20 AM AUTOMATION MACHINE BUILDER EGFR Routine 08/01/2024 7:55 AM AUTOMATION MACHINE BUILDER DIFFERENTIAL AUTO Routine 08/01/2024 7:5 5 AM AUTOMATION MACHINE BUILDER CBC WITH AUTO DIFFERENTIAL Routine 08/01/2024 7:55 AM AUTOMATION MACHINE BUILDER MAGNESIUM Routine 08/01/2024 7:55 AM AUTOMATION MACHINE BUILDER BASIC METABOLIC PANEL Routine 08/01/2024 7:55 AM AUTOMATION MACHINE BUILDER ECG 12-LEAD Routine 08/01/2024 7:25 AM AUTOMATION MACHINE BUILDER APTT Routine 07/31/2024 6:15 PM AUTOMATION MACHINE BUILDER PROTIME-INR Routine 07/31/2024 6:15 PM AUTOMATION MACHINE BUILDER PERC JUDY CLOSURE W/IMPLANT (WATCHMAN) [id number] Routine 07/31/2024 11:48 AM AUTOMATION MACHINE BUILDER Paroxysmal atrial fibrillation (HCC) TRANSESOPHAGEAL ECHO (AZEEM) W DOPPLER/CF WO CONTRAST Routine 07/31/2024 11:45 AM AUTOMATION MACHINE BUILDER POCT ACTIVATED CLOTTING TIME, HIGH RANGE Routine 07/31/2024 11:30 AM AUTOMATION MACHINE BUILDER TX AN ELECTIVE ENDOTRACHEAL AIRWAY Routine 07/31/2024 11:15 AM AUTOMATION MACHINE BUILDER ECG 12-LEAD Routine 07/31/2024 9:15 AM AUTOMATION MACHINE BUILDER PREPARE RBC STAT 07/31/2024 8:59 AM AUTOMATION MACHINE BUILDER EGFR Routine 07/31/2024 8:41 AM AUTOMATION MACHINE BUILDER DIFFERENTIAL AUTO Routine 07/31/2024 8:4 1 AM AUTOMATION MACHINE BUILDER TYPE AND SCREEN Timed 07/31/2024 8:41 AM AUTOMATION MACHINE BUILDER COMPREHENSIVE METABOLIC PANEL Routine 07/31/2024 8:41 AM AUTOMATION MACHINE BUILDER CBC WITH AUTO DIFFERENTIAL Routine 07/31/2024 8:41 AM AUTOMATION MACHINE BUILDER from Last 3 Months Results * (ABNORMAL) eGFR (10/10/2024 11:30 AM CDT) eGFR 38(L) >=60 mL/min/1. 73 m2 Comment: Interpretive Data [...] interpretive data was last reviewed 2021. Blood 10/10/2024 11:3 0 AM CDT 10/10/2024 11:45 AM CDT us Tristin Guillen MD LAB BLOOD ORDERABLES Final Re sult [facility] [address] [facility] [place] [address] * (ABNORMAL) Urinalysis reflex to microscopic (10/10/2024 11:30 AM CDT) Color, ur Straw Yellow Clarity, ur Clear Clear [facility] ([place]) Specific gravity, ur 1.006 1.003 - 1.030 [facility] ([place]) pH, urine 7.0 [facility] ([place]) Comment: Interpretive Data U rine pH is affected by diet, medications, systemic acid-base disturbances, and renal tubular function. pH may affect urinary stone formation. For example, urine pH below 6.0 may help reduce the tendency for calcium phosphate stones and pH greater than 6.0 may reduce the tendency for uric acid stone formation. Source: [facility] [employer] Current Interpretive Data was last revised on 2017 Protein, ur ql Negative Negative [facility] ([place]) Glucose, ur ql Negative Negative [facility] ([place]) Ketones, ur Negative Negative [facility] ([place]) Bilirubin, ur Negative Negative [facility] ([place]) Blood, ur Negative Negative [facility] ([place]) Urobilinogen, ur <2.0 <2.0 mg/dL [facility] ([place]) Nitrite, ur Negative Negative [facility] A ([place]) Leukocyte esterase, ur 1+(A) Negative [facility] ([place]) UA reflex comment Reflex to microscopic UA will be performed. [facility] ([place]) Urine 10/10/2024 11:3 0 AM CDT 10/10/2024 11:48 AM CDT Tristin Guillen MD LAB URINE ORDERABLES Final Re sult Performing Organization Address [facility] Co de Phone Number [facility] ([place]) [address] [place] [address] [place] [address] * (ABNORMAL) Urinalysis, microscopic only (10/10/2024 11:30 AM CDT) WBC, ur 0-5 0 - 5 /HPF RBC, ur 0-2 0 - 2 /HPF [facility] ([place]) Epithelial cells, squamous, ur 1-5 0 - 5 /HPF [facility] ([place]) Mucous, ur Present(A) [facility] A ([place]) Hyaline casts, ur 1-5 0 - 10 /LPF [facility] ([place]) Urine 10/10/2024 11:3 0 AM CDT 10/10/2024 11:48 AM CDT Tristin Guillen MD LAB URINE ORDERABLES Final Re sult Performing Organization Address City/[facility]/ZIP Co de Phone Number [facility] ([place]) [address] [place] [address] [place] [address] * (ABNORMAL) Renal function panel (10/10/2024 11:30 AM CDT) Sodium 132(L) 135 - 145 mmol/L Potassium, pl 3.7 3.3 - 4.9 mmol/L [facility] ([place]) Chloride 90(L) 97 - 110 mmol/L [facility] ([place]) CO2 27 22 - 32 mmol/L [facility] ([place]) Anion gap 15 2 - 15 mmol/L [facility] ([place]) BUN 61(H) 6 - 25 mg/dL [facility] ([place]) Creatinine 1.36(H) 0.60 - 1.10 mg/dL [facility] ([place]) [...] 10.3 mg/dL [facility] ([place]) Phosphorus, pl 4.0 2.3 - 4.5 mg/dL [facility] ([place]) Albumin 3.7 3.5 - 5.0 g/dL [facility] ([place]) Blood 10/10/2024 11:3 0 AM CDT 10/10/2024 11:45 AM CDT Tristin Guillen MD LAB BLOOD ORDERABLES Final Re sult [facility] ([place]) 1 [facility] Department [place] [address] * TRANSESOPHAGEAL ECHO (AZEEM) W DOPPLER/CF WO CONTRAST (10/03/2024 9:06 AM CDT) Anatomical Region Laterality Modality Ultrasound 10/03/2024 Narrative 10/07/2024 11:04 PM CDT Other Machine Job ID: [id number] Other Machine Document ID: [id number] Dictated date/time: [id number] TRANSESOPHAGEAL ECHO This 88-year-old recently underwent Amulet appendage closure. Presents today for transesophageal echo follow-up study. After obtaining informed consent, the patient was brought to the cardiac propagator laborer area. Noninvasive blood pressure, heart rate and oxygen saturation monitoring was applied. Topical anesthesia was applied to the posterior oropharynx. Conscious sedation was administered by the propagator laborer staff under my supervision. A total of 2 mg of Versed and 50 mcg of fentanyl and 25 mg of Benadryl was given in divided doses. See procedure log for further details. Total sedation time was 10 minutes. The probe was passed without difficulty. Full study including 2D, color-flow and spectral Doppler was performed. Adequate images were obtained and the procedure was well tolerated. FINDINGS 1. Amulet left atrial appendage occluder device in place without evidence of color flow around it in multiple views. There was no evidence of device containing thrombosis. 2. Moderate biatrial enlargement. 3. Faint left atrial spontaneous contrast. 4. The interatrial septum was anatomically normal. There was no evidence of shunt by bubble study. There was no evidence of color flow across it. 5. The aorta had mild plaque. 6. Mild aortic insufficiency. 7. Mild to moderate mitral regurgitation. 8. Normal left ventricular systolic function. CARE PLAN Based on the findings, Plavix can be discontinued. Stalin Arauz MD Job ID/Internal Job ID: [id number] Stalin Arauz MD CV ECHO PROCEDURES Final Result * Clinical pathology report (09/16/2024 1:08 PM CDT) Miscellaneous 09/16/2024 1:0 8 PM CDT 09/17/2024 8:39 AM CDT Narrative 09/17/2024 4:43 PM CDT EPIC results best viewed via link to PDF [facility] Department of Pathology [address] [place] [id number] Final Report Note to Patients: This report [...] details. Patient Name: TESS BENEDICT I. Address: [address] [place] [address], [place] [address]- Gender: F : 1935 (Age: 88) Service: Location: Hospital #: [id number] Patient Type: [facility] EP ANCILLARY Taken: 09/16/2024 Received: 09/17/2024 Accessioned: 09/17/2024 Physician(s): Tristin Guillen M.D. [facility] Specimen(s) Received A: Blood (serum) Serum [...] determined by the Surgical Pathology Department at [facility] as part of an ongoing quality control assistant program and in compliance with federally mandated [...] characteristics determined by the Surgical Pathology Department [facility]. It has not been cleared or approved [...] MD LAB BLOOD ORDERABLES Final Re sult [facility] ([place]) 1 [facility] Department [place] [address] * (ABNORMAL) Differential, auto (09/16/2024 1:08 PM [...] BLOOD ORDERABLES Final Re sult [facility] ([place]) 1 [facility] [place] [address] * (ABNORMAL) Iron profile w/ IBC (09/16/2024 1:08 PM CDT) Iron 36 35 - 145 mcg/dL TIBC 404(H) 250 - 400 mcg/dL [facility] ([place]) Transferrin saturation 9(L) 20 - 50 % [facility] ([place]) Blood 09/16/2024 1:08 PM CDT 09/16/2024 2:38 PM CDT us Tristin Guillen MD LAB BLOOD ORDERABLES Final Re sult [facility] ([place]) 1 [facility] Department [place] [address] * (ABNORMAL) Urinalysis reflex to microscopic (09/16/2024 1:08 PM CDT) Color, ur Straw Yellow Clarity, ur Clear Clear [facility] ([place]) Specific gravity, ur 1.006 1.003 - [...] stone formation. Source: [facility] [employer] Current Interpretive Data was last revised on [...] MD LAB URINE ORDERABLES Final Re sult [facility] ([place]) 1 [facility] [place] [address] * (ABNORMAL) CBC with auto differential (09/16/2024 [...] RDW SD 47.4 35.7 - 48.1 fL [facility] ([place]) NRBC abs 0.00 0.00 - 0.01 K/cumm [facility] ([place]) Blood 09/16/2024 1:08 PM CDT 09/16/2024 2:38 PM CDT Tristin Guillen MD LAB BLOOD ORDERABLES Final Re sult [facility] ([place]) 1 [facility] [place] [address] * (ABNORMAL) Protein / creatinine ratio, urine, random (09/16/2024 1:08 PM CDT) Protein, ur, quant <5.0 mg/dL Comment: Interpretive Data No reference range established. Current interpretive data was last revised 2018. Creatinine Ur 15.8 mg/dL [facility] ([place]) Comment: Interpretive Data No reference range established. Current interpretive data was last revised 2018. Protein/creatinin e ratio <316.5(H) 0.0 - 180.0 mg/g CR [facility] ([place]) Urine 09/16/2024 1:08 PM CDT 09/16/2024 1:56 PM CDT us Tristin Guillen MD LAB URINE ORDERABLES Final Re sult Performing Organization Address [facility]/ZIP Co de Phone Number [facility] ([place]) 1 [facility] [place] [address] * (ABNORMAL) Erythrocyte sedimentation rate (09/16/2024 1:08 PM CDT) Pathologist [facility] Erythrocyte sedimentation rate 32(H) 1 - 30 mm/hr Blood 09/16/2024 1:08 PM CDT 09/16/2024 2:38 PM CDT us Tristin Guillen MD LAB BLOOD ORDERABLES Final Re sult [facility] ([place]) 1 [facility] [place] [address] * C3 complement (09/16/2024 1:08 PM CDT) Pathologist [facility] Complement C3 156 90 - 180 mg/dL Comment:Testing performed by : [facility], [address] [place] [address], [place]., [address] Blood 09/16/2024 1:08 PM CDT 09/16/2024 5:54 PM CDT us Tristin Guillen MD LAB BLOOD ORDERABLES Final Re sult Performing Organization Address [facility]/ZIP Co de Phone Number [facility] ([place]) 1 [place] [address] * TSH (09/16/2024 1:08 PM CDT) [facility] Thyroid Stimulating Hormone 3.53 0.30 - 4.20 mcIUnit/mL Blood 09/16/2024 1:08 PM CDT 09/16/2024 2:38 PM CDT Tristin Guillen MD LAB BLOOD ORDERABLES Final Re sult Performing Organization Address [facility] Co de Phone Number [facility] ([place]) [address] [place] [address] * T4, free (09/16/2024 1:08 PM CDT) [facility] Free T4 1.53 0.90 - 1.70 ng/dL Blood 09/16/2024 1:08 PM CDT 09/16/2024 2:38 PM CDT Tristin Guillen MD LAB BLOOD ORDERABLES Final Re sult Performing Organization Address [facility] Co de Phone Number [facility] ([place]) 1 [place] [address] * (ABNORMAL) Protein electrophoresis with reflex, serum with interpretation (09/16/2024 1:08 PM CDT) [facility] Protein, sr 6.7 6.2 - 8.2 g/dL Comment:Testing performed by : [facility], [address] [place] [address], [place]., [address] Albumin 3.5 3.2 - 5.0 g/dL [facility] ([place]) Comment:Testing performed by : [facility], [address] [place] [address]., [address] Alpha-1 globulin 0.6(H) 0.2 - 0.4 g/dL [facility] ([place]) Comment:Testing performed by : [facility], [address] [place] [address]., [address] Alpha-2 globulin 0.8 0.5 - 1.0 g/dL [facility] ([place]) Comment:Testing performed by : [facility], [address] [place] [address]., [address] Beta-1 globulin 0.5 0.3 - 0.6 g/dL [facility] ([place]) Comment:Testing performed by : [facility], [address] [place] [address]., [address] Beta-2 globulin 0.4 0.2 - 0.6 g/dL [facility] ([place]) Comment:Testing performed by : [facility], [address] [place] [address], [address] Gamma globulin 0.9 0.5 - 1.7 g/dL [facility] ([place]) Comment:Testing performed by : [facility], [address] [place] [address], [address] SPEP interp See Cl Path Rpt [facility] ([place]) Comment:Testing performed by : [address], [address] Blood 09/16/2024 1:08 PM CDT 09/16/2024 5:54 PM CDT Tristin Guillen MD LAB BLOOD ORDERABLES Final Re sult Performing Organization Address [facility]/ZIP Co de Phone Number [facility] ([place]) 1 [facility] [place] [address] * Phosphorus (09/16/2024 1:08 PM CDT) Phosphorus, pl 4.2 2.3 - 4.5 mg/dL Blood 09/16/2024 1:08 PM CDT 09/16/2024 2:38 PM CDT Tristin Guillen MD LAB BLOOD ORDERABLES Final Re sult [facility] ([place]) 1 [facility] [place] [address] * (ABNORMAL) PTH (09/16/2024 1:08 PM CDT) Pathologist [facility] PTH 125(H) 15 - 65 pg/mL Blood 09/16/2024 1:08 PM CDT 09/16/2024 2:38 PM CDT Tristin Guillen MD LAB BLOOD ORDERABLES Final Re sult Performing Organization Address [facility] Co de Phone Number [facility] ([place]) 1 [facility] [place] [address] * (ABNORMAL) Iron level (09/16/2024 1:08 PM CDT) [facility] Iron 33(L) 35 - 145 mcg/dL Blood 09/16/2024 1:08 PM CDT 09/16/2024 2:38 PM CDT Tristin Guillen MD LAB BLOOD ORDERABLES Final Re sult Performing Organization Address [facility] de Phone Number [facility] ([place]) 1 [facility] [place] [address] * Hemoglobin A1c (09/16/2024 1:08 PM CDT) [facility] Hgb A1C 5.5 4.0 - 5.6 % Estimated Average Glucose 111 mg/dL [facility] ([place]) Comment: The ADA recommends reporting an estimated Average Glucose (eAG) with all Hemoglobin A1c results using the equation derived from a study of 507 normal and diabetic adults. Minority populations were underrepresented and children were not included. (Diabetes Care 31:5828-4711, 2008). The eAG is not equivalent to a fasting glucose. Blood 09/16/2024 1:08 PM CDT 09/16/2024 2:38 PM CDT Tristin Guillen MD LAB BLOOD ORDERABLES Final Re sult Performing Organization Address [facility] Co de Phone Number [facility] ([place]) [address] Department [place] [address] * Bilirubin, direct (09/16/2024 1:08 PM CDT) Bilirubin, direct 0.1 0.1 - 0.3 mg/dL Blood 09/16/2024 1:08 PM CDT 09/16/2024 2:38 PM CDT Tristin Guillen MD LAB BLOOD ORDERABLES Final Re sult [facility] ([place]) 1 [facility] [place] [address] * (ABNORMAL) Comprehensive metabolic panel (09/16/2024 1:08 PM CDT) Sodium 127(L) 135 - 145 mmol/L Potassium, pl 3.2(L) 3.3 - 4.9 mmol/L [facility] ([place]) Chloride 83(L) 97 - 110 mmol/L [facility] ([place]) CO2 28 22 - 32 mmol/L [facility] ([place]) Anion gap 16(H) 2 - 15 mmol/L [facility] ([place]) BUN 78(H) 6 - 25 mg/dL [facility] ([place]) Creatinine 1.78(H) 0.60 - 1.10 mg/dL [facility] ([place]) Glucose 94 70 - 199 mg/dL [facility] ([place]) Comment: Interpretive Data Fasting glucose [...] 2022. Calcium 9.7 8.5 - 10.3 mg/dL [facility] ([place]) Bilirubin, total 0.4 0.1 - 1.2 [...] Final Re sult [facility] ([place]) 1 [facility] Department [place] [address] * US Kidney Complete (08/21/2024 3:38 PM AUTOMATION MACHINE BUILDER) Anatomical Region Laterality Modality Kidney N/A Ultrasound [...] AM - Electronically signed by José Miguel Escobedo.D. CH: ALEXUS Report ID: [id number] Reading Location: [id number] Procedure Note José Miguel Case Jr., MD [...] José Miguel Case M.D. CH: Report ID: [id number] Reading Location: [id number] us Tristin Guillen MD IMG US PROCEDURES Final Resul t * TX ARTHROCENTESIS ASPIR&/INJ MAJOR JT/BURSA W/O US (08/15/2024 1:15 PM AUTOMATION MACHINE BUILDER) Narrative Jadny Hobson PA - 08/15/2024 1:15 PM AUTOMATION MACHINE BUILDER Jadyn Hobson PA 08/15/2024 2:12 PM Large [...] LTD DOPPLER/CF WO CONTRAST (08/01/2024 8:20 AM AUTOMATION MACHINE BUILDER) Anatomical Region Laterality Modality Ultrasound 08/01/2024 6:46 AM AUTOMATION MACHINE BUILDER Narrative 08/01/2024 9:39 [place] [address] Limited Echocardiogram Report Patient Name: TESS BENEDICT I : 1935 Study Date: 08/01/2024 6:46:22 AM Gender: F Tech: Location: [address] Provider: STALIN ARAUZ Height(Cm): 152 BSA: [...] DO, FACC, FASE, FASNC 08/01/2024 9:38:26 AM AUTOMATION MACHINE BUILDER Procedure Note Latanya Fitzgerald DO - 08/01/2024 [place] [address] Limited Echocardiogram Report Patient Name: TESS BENEDICT I : 1935 Study Date: 08/01/2024 6:46:22 AM Gender: F Tech: Location: [id number] Ref Provider: STALIN ARAUZ Height(Cm): 152 BSA: [...] DO, DEANNA, SOLANGE MCINTYRE 08/01/2024 9:38:26 AM AUTOMATION MACHINE BUILDER us Stalin Arauz MD CV ECHO PROCEDURES Final Result * (ABNORMAL) eGFR (08/01/2024 7:55 AM AUTOMATION MACHINE BUILDER) eGFR 43(L) >=60 mL/min/1. 73 m2 Comment: [...] last reviewed 2021. Blood 08/01/2024 7:55 AM AUTOMATION MACHINE BUILDER 08/01/2024 8:13 AM AUTOMATION MACHINE BUILDER us Stalin Arauz MD LAB BLOOD ORDERABLES Final Resu lt [facility] [address] Department [place] [address] * (ABNORMAL) Differential, auto (08/01/2024 7:55 AM AUTOMATION MACHINE BUILDER) Neutrophil abs 9.9(H) 1.5 - 6.5 K/cumm Imm gran abs 0.1 0.0 - 0.1 K/cumm [facility] Lymphocyte abs 0.6(L) 0.8 - 3.3 K/cumm [facility] Monocyte abs 0.8 0.2 - 0.8 K/cumm [facility] Eosinophil abs 0.0 0.0 - 0.5 K/cumm [facility] Basophil abs 0.0 0.0 - 0.1 K/cumm [facility] Neutrophil pct 86.7 % [facility] Comment: Interpretive Data Percent cell count reference ranges are not reported, since discordance with absolute values may lead to misinterpretation of CBC data. Current Interpretive Data was last revised on 2017. Imm gran pct 0.9 % [facility] Comment: Interpretive Data Percent cell count reference ranges are not reported, since discordance with absolute values may lead to misinterpretation of CBC data. Current Interpretive Data was last revised on 2017. Lymphocyte pct 5.2 % [facility] Comment: Interpretive Data Percent cell count reference ranges are not reported, since discordance with absolute values may lead to misinterpretation of CBC data. Current Interpretive Data was last revised on 2017. Monocyte pct 6.8 % [facility] Comment: Interpretive Data Percent cell count reference ranges are not reported, since discordance with absolute values may lead to misinterpretation of CBC data. Current Interpretive Data was last revised on 2017. Eosinophil pct 0.2 % [facility] Comment: Interpretive Data Percent cell count reference ranges are not reported, since discordance with absolute values may lead to misinterpretation of CBC data. Current Interpretive Data was last revised on 2017. Basophil pct 0.2 % [facility] Comment: Interpretive Data Percent cell count reference ranges are not reported, since discordance with absolute values may lead to misinterpretation of CBC data. Current Interpretive Data was last revised on 2017. Blood 08/01/2024 7:55 AM AUTOMATION MACHINE BUILDER 08/01/2024 8:13 AM AUTOMATION MACHINE BUILDER us Stalin Arauz MD LAB BLOOD ORDERABLES Final Resu lt [facility] [address] Department [place] [address] * (ABNORMAL) CBC with auto differential (08/01/2024 7:55 AM AUTOMATION MACHINE BUILDER) WBC 11.4(H) 3.8 - 9.9 K/cumm Hgb 12.2 11.9 - 15.5 g/dL [facility] Hct 41.7 35.6 - 45.5 % [facility] Plt 276 150 - 400 K/cumm [facility] MPV 9.4 9.1 - 12.3 fL [facility] RBC 4.78 3.90 - 5.20 M/cumm [facility] MCV 87.2 81.3 - 96.4 fL [facility] MCH 25.5(L) 27.1 - 33.3 pg [facility] MCHC 29.3(L) 32.3 - 35.7 g/dL [facility] RDW CV 17.1(H) 11.1 - 14.9 % [facility] RDW SD 53.6(H) 35.7 - 48.1 fL [facility] NRBC abs 0.00 0.00 - 0.01 K/cumm [facility] Blood 08/01/2024 7:55 AM AUTOMATION MACHINE BUILDER 08/01/2024 8:13 AM AUTOMATION MACHINE BUILDER Stalin Arauz MD LAB BLOOD ORDERABLES Final Resu lt Performing Organization Address City/[facility] Co de Phone Number [facility] [address] [facility] [place] [address] * Magnesium (08/01/2024 7:55 AM AUTOMATION MACHINE BUILDER) Pathologist [facility] Magnesium 2.3 1.4 - 2.5 mg/dL Blood 08/01/2024 7:55 AM AUTOMATION MACHINE BUILDER 08/01/2024 8:13 AM AUTOMATION MACHINE BUILDER Stalin Arauz MD LAB BLOOD ORDERABLES Final Resu lt Performing Organization Address [facility] de Phone Number [facility] [address] [place] [address] * (ABNORMAL) Basic metabolic panel (08/01/2024 7:55 AM AUTOMATION MACHINE BUILDER) Pathologist [facility] Sodium 137 135 - 145 mmol/L Potassium, pl 4.1 3.3 - 4.9 mmol/L [facility] Chloride 99 97 - 110 mmol/L [facility] CO2 24 22 - 32 mmol/L [facility] Anion gap 14 2 - 15 mmol/L [facility] BUN 43(H) 6 - 25 mg/dL [facility] Creatinine 1.22(H) 0.60 - 1.10 mg/dL [facility] Glucose 100 70 - 199 mg/dL [facility] Comment: Interpretive Data Fasting glucose >/= [...] 10.3 mg/dL [facility] Blood 08/01/2024 7:55 AM AUTOMATION MACHINE BUILDER 08/01/2024 8:13 AM AUTOMATION MACHINE BUILDER Result [facility] Stalin Arauz MD LAB BLOOD ORDERABLES Final Resu lt Performing Organization Address [facility] Phone Number [facility] [address] [place] [address] * ECG 12 lead (08/01/2024 7:25 AM AUTOMATION MACHINE BUILDER) 08/01/2024 7:25 AM AUTOMATION MACHINE BUILDER Narrative [facility] - 08/01/2024 10:33 AM AUTOMATION MACHINE BUILDER Vent Rate: 79 bpm RR Interval: 757 msec TX Interval: 0 msec QRS Duration: 73 msec QT Interval: 378 msec QTC Interval: 412 msec P-R-T [place]: 0 - 74 - 17 degrees IMPRESSION: ATRIAL FIBRILLATION WITH CONTROLLED VENTRICULAR RESPONSE Electronically Signed By: Collin Rich MD, [facility] Result [facility] Stalin Arauz MD ECG ORDERABLES Final Result Performing Organization Address [facility] Phone Number [facility] * aPTT (07/31/2024 6:15 PM AUTOMATION MACHINE BUILDER) aPTT 32 28 - 38 sec Comment: Interpretive Data Heparin therapeutic range: 66.0 - 100.0 seconds. Range based on correlation with therapeutic heparin activity range of 0.3 - 0.7 Units/mL. Current interpretive data was last revised on 2023. Blood 07/31/2024 6:15 PM AUTOMATION MACHINE BUILDER 07/31/2024 6:19 PM AUTOMATION MACHINE BUILDER Stalin Arauz MD LAB BLOOD ORDERABLES Final Resu lt Performing Organization Address [facility] de Phone Number [facility] [address] [place] [address] * Protime-INR (07/31/2024 6:15 PM AUTOMATION MACHINE BUILDER) PT 12.2 9.7 - 13.0 sec INR 1.13 0.90 - 1.20 [facility] Comment: Interpretive data Oral anticoagulant therapeutic ranges: Venous thromboembolism prophylaxis or treatment: 2.0-3.0 CARDIOLOGY Standard range: 2.0-3.0 High-intensity range: 2.5-3.5 Refer to indication-specific guidelines for appropriate target ranges for prosthetic heart valve replacement. Current interpretive data was last revised on 2019. Blood 07/31/2024 6:15 PM AUTOMATION MACHINE BUILDER 07/31/2024 6:19 PM AUTOMATION MACHINE BUILDER us Stalin Arauz MD LAB BLOOD ORDERABLES Final Resu lt [facility] [address] Department [place] [address] * PERC JUDY CLOSURE W/IMPLANT (WATCHMAN) [id number] (07/31/2024 11:48 AM AUTOMATION MACHINE BUILDER) Anatomical Region Laterality Modality X-Ray Angiograph y Narrative 07/31/2024 12:29 PM AUTOMATION MACHINE BUILDER HISTORY 88y.o. old female with a history [...] fail. The patient was brought to the [facility] OR in a fasting state. A time-out was performed. The patient was prepped and draped in the usual sterile fashion. General anesthesia was administered. The patient received endotracheal intubation. OPERATORS: Stalin arauz MD, VASCULAR ACCESS The right femoral vein was accessed using the modified Seldinger technique. An 8-Barbadian sheath was inserted. TRANSSEPTAL PUNCTURE The patient was kept therapeutically anticoagulated throughout the case. Transseptal puncture was made to gain access to the left atrium using a Cloud4Wi needle system. Transseptal catheterization was performed and guided by AZEEM see imaging note . The transseptal puncture was performed mid and inferior position. The wire was advanced through the left atrium and a double curved delivery sheath was placed over the wire. An Amplatzer delivery catheter TorqVue was advanced into the left atrial appendage. A 5-Barbadian pigtail was used to gain access into [...] Stalin Arauz MD CV ELECTROPHYSIOLOGY PROCS Farzana hernandez Result * TRANSESOPHAGEAL ECHO (AZEEM) W DOPPLER/CF WO CONTRAST (07/31/2024 11:45 AM AUTOMATION MACHINE BUILDER) Anatomical Region Laterality Modality Ultrasound Narrative 07/31/2024 12:35 PM AUTOMATION MACHINE BUILDER Table formatting from the original result was not included. Result Text PROCEDURE Transesophageal ECHO for left atrial appendage closure INDICATION 88-year-old with paroxysmal Atrial fibrillation and [id number] score 6 , HAS BLED 4 with [...] Clotting Time, High Range (07/31/2024 11:30 AM AUTOMATION MACHINE BUILDER) ACT 280(H) 87 - 138 sec Blood 07/31/2024 11:3 0 AM AUTOMATION MACHINE BUILDER 07/31/2024 11:30 AM AUTOMATION MACHINE BUILDER Stalin Arauz MD LAB BLOOD ORDERABLES Final Resu lt Performing Organization Address City/State/[facility] Co de Phone Number [facility] [address] [facility] Department [place] [address] * TX AN ELECTIVE ENDOTRACHEAL AIRWAY (07/31/2024 11:15 AM AUTOMATION MACHINE BUILDER) Narrative Rosita Sharma AA - 07/31/2024 11:15 AM AUTOMATION MACHINE BUILDER Rosita Sharma AA 07/31/2024 11:15 AM Airway [...] * ECG 12 lead (07/31/2024 9:15 AM AUTOMATION MACHINE BUILDER) 07/31/2024 9:15 AM AUTOMATION MACHINE BUILDER Narrative [facility] - 07/31/2024 1:18 PM AUTOMATION MACHINE BUILDER Vent Rate: 80 bpm RR Interval: 743 msec TX Interval: 0 msec QRS Duration: 78 msec QT Interval: 389 msec QTC Interval: 425 msec P-R-T [place]: 0 - 91 - 23 degrees IMPRESSION: ATRIAL FIBRILLATION BORDERLINE RIGHT AXIS DEVIATION ABNORMAL RHYTHM ECG Electronically Signed By: Dr. Gardenia Harper [facility] Stalin Arauz MD ECG ORDERABLES Final Result Performing Organization Address [facility] de Phone Number [facility] Rock [employer] [facility] * Prepare RBC: 2 Units (07/31/2024 8:59 AM AUTOMATION MACHINE BUILDER) Product code [id number] Unit Number [id number] 1-N CERNER CH Product Blood Type APOS CERNER CH Dispense Status RETURNED CERNER CH Product code [id number] CERNER CH Unit Number [id number] 7-Q CERNER CH Product Blood Type APOS CERNER CH Dispense Status RETURNED CERNER CH Blood 07/31/2024 8:59 AM AUTOMATION MACHINE BUILDER Narrative CERNER CH - 08/04/2024 12:07 AM AUTOMATION MACHINE BUILDER Specify Procedure:->LAAO Are special requirements needed? (All products are leukoreduced and CMV- safe)- >No Date required:-[id number] LRRBC # of [id number] Reasons:-Hold for procedure (specify procedure)} Stalin Arauz MD BLOOD BANK PRODUCT ORDERABLES F inal Result Performing Organization Address City/[facility] Co de Phone Number [facility] [address] Department [place] [address] * (ABNORMAL) eGFR (07/31/2024 8:41 AM AUTOMATION MACHINE BUILDER) eGFR 40(L) >=60 mL/min/1. 73 m2 Comment: [...] last reviewed 2021. Blood 07/31/2024 8:41 AM AUTOMATION MACHINE BUILDER 07/31/2024 8:44 AM AUTOMATION MACHINE BUILDER us Stalin Arauz MD LAB BLOOD ORDERABLES Final Resu lt [facility] [id number] Department [place] [address] * (ABNORMAL) Differential, auto (07/31/2024 8:41 AM AUTOMATION MACHINE BUILDER) Neutrophil abs 8.2(H) 1.5 - 6.5 K/cumm Imm gran abs 0.1 0.0 - 0.1 K/cumm [facility] Lymphocyte abs 0.6(L) 0.8 - 3.3 K/cumm [facility] Monocyte abs 0.6 0.2 - 0.8 K/cumm [facility] Eosinophil abs 0.3 0.0 - 0.5 K/cumm [facility] Basophil abs 0.1 0.0 - 0.1 K/cumm [facility] Neutrophil pct 84.2 % [facility] Comment: Interpretive Data Percent cell count reference ranges are not reported, since discordance with absolute values may lead to misinterpretation of CBC data. Current Interpretive Data was last revised on 2017. Imm gran pct 1.0 % [facility] Comment: Interpretive Data Percent cell count reference ranges are not reported, since discordance with absolute values may lead to misinterpretation of CBC data. Current Interpretive Data was last revised on 2017. Lymphocyte pct 5.8 % [facility] Comment: Interpretive Data Percent cell count reference ranges are not reported, since discordance with absolute values may lead to misinterpretation of CBC data. Current Interpretive Data was last revised on 2017. Monocyte pct 5.7 % [facility] Comment: Interpretive Data Percent cell count reference ranges are not reported, since discordance with absolute values may lead to misinterpretation of CBC data. Current Interpretive Data was last revised on 2017. Eosinophil pct 2.7 % [facility] Comment: Interpretive Data Percent cell count reference ranges are not reported, since discordance with absolute values may lead to misinterpretation of CBC data. Current Interpretive Data was last revised on 2017. Basophil pct 0.6 % [facility] Comment: Interpretive Data Percent cell count reference ranges are not reported, since discordance with absolute values may lead to misinterpretation of CBC data. Current Interpretive Data was last revised on 2017. Blood 07/31/2024 8:41 AM AUTOMATION MACHINE BUILDER 07/31/2024 8:45 AM AUTOMATION MACHINE BUILDER us Stalin Arauz MD LAB BLOOD ORDERABLES Final Resu lt [facility] [address] Department [place] [address] * (ABNORMAL) CBC with auto differential (07/31/2024 8:41 AM AUTOMATION MACHINE BUILDER) WBC 9.8 3.8 - 9.9 K/cumm Hgb 13.5 11.9 - 15.5 g/dL [facility] Hct 45.7(H) 35.6 - 45.5 % [facility] Plt 321 150 - 400 K/cumm CERNER [...] NRBC abs 0.00 0.00 - 0.01 K/cumm [facility] Blood 07/31/2024 8:41 AM AUTOMATION MACHINE BUILDER 07/31/2024 8:45 AM AUTOMATION MACHINE BUILDER Stalin Arauz MD LAB BLOOD ORDERABLES Final Resu lt Performing Organization Address City/[facility]/ZIP Co de Phone Number [facility] ALEX[facility] [address] [employer] [place] [address] * Type and screen (07/31/2024 8:41 AM AUTOMATION MACHINE BUILDER) Pathologist [facility] ABO Rh A Positive Ever, indirect Negative [facility] Blood 07/31/2024 8:41 AM AUTOMATION MACHINE BUILDER 07/31/2024 8:52 AM AUTOMATION MACHINE BUILDER Narrative [facility] - 07/31/2024 10:08 AM AUTOMATION MACHINE BUILDER Has the patient had Daratumumab or Isatuximab in the past 6 months?->Unknown Stalin Arauz MD LAB BLOOD BANK TEST ORDERABLES Final Result Performing Organization Address City/[facility]/ZIP Co de Phone Number [facility] VAUGHAN [address] [place] [address] * (ABNORMAL) Comprehensive metabolic panel (07/31/2024 8:41 AM AUTOMATION MACHINE BUILDER) Sodium 137 135 - 145 mmol/L Potassium, pl 3.7 3.3 - 4.9 mmol/L [facility] Chloride 94(L) 97 - 110 mmol/L CERNER [...] Units/L CERNER CH Blood 07/31/2024 8:41 AM AUTOMATION MACHINE BUILDER 07/31/2024 8:44 AM AUTOMATION MACHINE BUILDER us Stalin Arauz MD LAB BLOOD ORDERABLES Final Resu lt [facility] [address] Department [place] [address] from Last 3 Months Insurance MEDICARE [facility] [place] [address] [facility] MEDICARE MEDICARE [facility] MEDICARE [facility] MEDICARE [facility] MEDICARE SUPPLEMENT Advance Directives For more information, please contact: [phone] Documents on File Type Date Recorded 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 ADVANCE DIRECTIVE 05/14/2019 1:34 [...] 7:42 PM 12/30/2022 3:56 PM Care Teams Baseball Club Manager Relationship Specialty Start Date End Date Pepper Morgan MD PCP - General 09/16/16 Hank Garibay MD [address] [facility] [address] [facility] [address] [place] [address] Surgeon Orthopedic Surgery 03/27/17 Jacky Murry MD [address] [place] [address] [address] [facility] [address] [place] [address] Ophthalmology 03/27/17 Puma Mckenzie MD [address] [place] [address] [address] [place] [address] Surgeon Orthopedic Surgery 07/11/19 Neha Jackson, PT Physical Therapist Physical Therapy 12/01/21 Stalin Arauz MD Consulting Physician Cardiology 12/08/22 Tiffany Rojas, PA [address] [place] [address] [address] [place] [address] Gastroenterology 12/30/22 Klaus Deshpande MD [address] [place] [address] [address] [place] [address] Consulting Physician Neurology 06/13/23
--- OUTSIDE RECORDS SUMMARY | 2024-10-17 09:56 | XMS_ITS | Referral Summary ---
Author Organization [facility] Address [address] [place] [address] Care Team Providers Care Welding Engineer Name Role Phone Pepper Morgan MD Primary Care Provider + [phone] Hank Garibay MD Unavailable [phone] Jacky Murry MD Unavailable [phone] Puma Mckenzie MD Unavailable [phone] Neha Jackson PT Unavailable Unavailable Stalin Arauz MD Unavailable [phone] Tiffany Rojas Unavailable [phone] Klaus Deshpande MD Unavailable [phone] Encounters Date Type Department Care Team Description 10/10/2024 11:20 AM CDT Lab [address] [address] 10/03/2024 7:57 AM CDT - 10/03/2024 11:59 PM CDT Hospital Encounter [facility] Cardiology [address] [place] [address] Presence of Amulet left atrial appendage closure device Discharge Disposition: Discharge to home or self care 09/26/2024 Telephone [facility] [address] [facility] [address] [place] [address] Mckenzie Collins MA 09/23/2024 1:45 PM CDT Orders Only [facility] [address] [place] [address] 09/23/2024 10:45 AM CDT Office Visit [facility] [address] [facility] [address] [place] [address] Klaus Deshpande MD Restless legs syndrome (Primary Dx); Essential tremor 09/18/2024 Telephone [facility] [address] [place] [address] Pepper Morgan MD Blood in Urine 09/18/[address] [facility] at [address] [place] [address] Stalin Arauz MD Presence of Amulet left atrial appendage closure device (Primary Dx) 09/16/[address] [facility] at [address] [place] [address] Mckenzie Reyes MA 09/16/2024 1:00 PM CDT Lab [address] [address] 09/16/2024 11:00 AM CDT Orders Only [facility] [address] [place] [address] 09/09/2024 9:00 AM CDT Orders Only [facility] [address] [place] [address] 09/03/2024 2:45 PM CDT Office Visit [facility] at [address] [place] [address] Maude Harris NP Chronic atrial fibrillation (HCC) (Primary Dx) 09/02/2024 9:00 AM CDT Orders Only [facility] [address] [place] [address] ISTAP type 3 skin tear of left upper arm 08/26/2024 5:01 PM CDT - 08/26/2024 6:34 PM CDT Emergency [facility] Emergency Department [address] [place] [address] Laceration of left upper extremity, initial encounter (Primary Dx) Discharge Disposition: Discharge to home or self care 08/26/2024 1:00 PM CDT Office Visit [facility] [address] [facility] [address] [place] [address] Pepper Morgan MD Annual physical exam (Primary Dx); At high risk for injury related to fall; Right leg weakness; Spinal stenosis of lumbar region with neurogenic claudication; Essential tremor; Gouty arthritis of foot; Gait disturbance; ISTAP type 3 skin tear of left upper arm; Atherosclerosis of [place] arteries of extremities with intermittent claudication, bilateral legs; Class 1 obesity with serious comorbidity and body mass index (BMI) of 33.0 to 33.9 in adult, unspecified obesity type; Acute on chronic heart failure with preserved ejection fraction (HCC); Benign hypertension; Chronic atrial fibrillation (HCC); Presence of Amulet left atrial appendage closure device; jail current use of anticoagulant; Mild persistent asthma without complication; History of malignant melanoma; Purpura; CKD stage 3b, GFR 30-44 ml/min (HCC); Chronic GERD; Chronic blood loss anemia; Bleeding hemorrhoids; Bariatric surgery status; Immunization counseling; Chronic bronchitis, unspecified chronic bronchitis type (HCC) 08/21/2024 2:45 PM WAIT STAFF - 08/21/2024 11:59 PM WAIT STAFF Hospital Encounter [facility] Imaging Center 1 [place] [address] Stage 3 chronic kidney disease, unspecified whether stage 3a or 3b CKD (HCC); Essential (primary) hypertension; Chronic systolic (congestive) heart failure (HCC); Hypertensive chronic kidney disease with stage 1 through stage 4 chronic kidney disease, or unspecified chronic kidney disease Discharge Disposition: Discharge to home or self care 08/15/2024 Orders Only [facility] [address] [facility] [address] [place] [address] Jadyn Hobson PA 08/15/2024 Orders Only [facility] [address] [facility] [address] [place] [address] Jadyn Hobson PA Osteoarthritis of right glenohumeral joint (Primary Dx); Right rotator cuff tear arthropathy; Complete tear of right rotator cuff, unspecified whether traumatic 08/15/2024 1:15 PM WAIT STAFF Office Visit [facility]ics and Sports Medicine [address] [facility] [address] [place] [address] Jadyn Hobson PA Osteoarthritis of right glenohumeral joint (Primary Dx); Right rotator cuff tear arthropathy 08/13/2024 Telephone [facility] [address] [place] [address] Pepper Morgan MD 08/07/2024 Telephone [facility] [address] [place] [address] Pepper Morgan MD Medication error 08/02/2024 MARIO IP Outreach [facility] Accountable Care Organization [address] [place] [address] Bruna Vidal MA 07/31/2024 7:44 AM WAIT STAFF - 08/01/2024 12:24 PM WAIT STAFF Hospital Encounter [address] [address] Stalin Arauz MD Paroxysmal atrial fibrillation (HCC) Discharge Disposition: Discharge to home or self care 07/31/2024 9:00 AM WAIT STAFF - 07/31/2024 11:59 PM WAIT STAFF Hospital Encounter [facility] Cardiac Catheterization Lab [address] [place] [address] Discharge Disposition: Discharge to home or self care 07/31/2024 1:10 PM WAIT STAFF - 07/31/2024 2:40 PM WAIT STAFF Surgery [facility] Cardiac Catheterization Lab [address] [place] [address] Stalin Arauz MD PERC JUDY CLOSE W/IMPLANT [address] 07/31/2024 10:52 AM WAIT STAFF Anesthesia Event [facility] Cardiac Catheterization Lab [address] [place] [address] Maria Guadalupe Talavera MD Barnhart, Lynlee Jo, NP 07/26/2024 Orders Only [facility] Non-invasive Cardiac Diagnostic Testing [address] [place] [address] Stalin Arauz MD Paroxysmal atrial fibrillation (HCC) (Primary Dx) 07/24/2024 Telephone [facility] [address] [place] [address] Pepper Morgan MD from Last 3 [...] VITAMIN C HELPS ABSORPTION 100 tablet 1 Active Additional Information Patient not taking.Reported on 10/03/2024 carbidopa-levod opa (SINEMET) 25-100 mg per tabletIndicatio ns:Parkinsonism Take 1 tablet by mouth 3 (three) times a day 90 tablet 3 Active cyclobenzaprine (FLEXERIL) 10 mg tablet Take [...] Gouty arthritis of foot 11/24/2023 Atherosclerosis of [place] ter[place] of extremities with intermittent claudication, bilateral legs 07/31/2023 [place] of macula of both eyes 05/30/2023 Mild persistent asthma 03/13/2023 Assessment & Plan (06/13/2023 7:53 PM WAIT STAFF): Controlled on advair and albuterol. No acute [...] 07/25/2022 Assessment & Plan (06/13/2023 7:50 PM WAIT STAFF): BP soft but stable in office today [...] pharmacy. 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 Will discuss additional treatment options with Dr. Morgan. Chronic GERD 11/02/2013 Overview (09/22/2016): Acid reflux Assessment & Plan (06/24/2019 9:31 AM WAIT STAFF): Symptoms have improved with protonix. She has had no further issues. We will continue with present regimen. Benign hypertension 11/02/2013 Overview (09/23/2016): Benign essential HTN Assessment & Plan (06/13/2023 7:49 PM WAIT STAFF): BP soft but stable in office today [...] above. Assessment & Plan (06/24/2019 12:50 PM WAIT STAFF): Well controlled will continue present regimen. Restless [...] 01/11/2024 08/26/2024 Acute lower GI bleeding 01/11/2024 03/1 Esophageal dysphagia 11/24/2023 025 Skin tear of [...] 24 hours. Will rx augmentin as directed. [place] diet, stay hydrated. Continue immodium as needed. [...] 022 Assessment & Plan (08/11/2021 9:51 AM WAIT STAFF): Patient presents with recurrent issues of left [...] consider checking C1 esterase and referral to optimization specialist. However, patient states she has done this in the past and w/u was benign. She will call or return sooner if needed. Shortness of breath 04/21/2021 08/27/19 25 Assessment & Plan (06/13/2023 7:51 PM WAIT STAFF): More likely due to CHF and 7 [...] 06/01/2021 Assessment & Plan (06/02/2020 11:07 AM WAIT STAFF): Patient presents with congestion, purulent discharge, ear [...] 11/18/2019 Assessment & Plan (08/08/2019 10:37 AM WAIT STAFF): Improved with lasix. We will repeat BMP to monitor renal function. She remains on aldactone which we will continue. She was encouraged to keep legs elevated while at rest and to avoid additional salt intake. If edema returns can prescribe lasix prn if renal function is stable Acute low back pain 08/08/2019 06/01/20 Assessment & Plan (08/08/2019 12:31 PM WAIT STAFF): Most likely secondary to degenerative disc disease. [...] 08/26/2024 Assessment & Plan (08/08/2019 10:35 AM WAIT STAFF): Noted post-operatively. She has been on iron daily and is experiencing significant constipation. Instructed her to decrease iron dose to M, W, F and to increase her fluid intake. We will repeat CBC if H&H improved will stop iron and monitor. Bilateral leg edema 07/11/2019 11/18/19 20 Overview (07/24/2019): Status post right hip replacement [...] management. Assessment & Plan (06/24/2019 12:50 PM WAIT STAFF): She has plans for rt hip replacement [...] Immunization Administration Dates Next Due COVID-19 mRNA ([employer]) 0.3 m L (30 mcg) vaccine (12 years and up) 03/24/2023 Influenza, Quad, Adjuvantate d, Intramuscular 03/10/2022 Influenza, Quadrivalent, Hig h Dose, Preservative Free, Intrr 03/24/2023,04/13/2021,03/31/2020 Influenza, Quadrivalent, Spl it, Intramuscular 04/04/2017,03/28/2016 Influenza, Split 05/18/2012 Influenza, Trivalent, Adjuva nted, Intramuscular 04/17/2019 Influenza, Trivalent, High D ose, Split, Preservative Free, Intramuscular 03/23/2024,04/17/2019,03/12/2018,03/23 Influenza, Trivalent, IM (MDV) 04/17/2015,2013 Influenza, Unspecified 03/19/2024,2022,03/10/2022,03/19,03/13/2018 [facility] SARS-CoV-2 Monovalent Vaccination (12+ Yrs) PURPLE 03/14/2021,09/06/2020,08/15/2020 [facility] Sars-Cov-2 Bivalent V accination (12+ YRS) 04/01/2022 [...] drink = 0.6 oz pur e alcohol) [facility] Utilities Answer Date Recorded In the past 12 months has e Experiment, gas, oil, or water company threatened to [...] attend chur ch or faith services? Never 04/11/2024 Do you belong to any clubs o r organizations such as rastafari groups, unions, fraternal or athletic groups, or [...] time in the past 12 m [facility], were you homeless or living in [...] on file Legal Sex Female 4:33 AM WAIT STAFF Gender Identity Not on file Sexual Orientation [...] 10/03/2024 8:17 AM CDT Plan of Treatment Not on file Goals Goal Patient Goal Type Associated Problems Recent Progress Patient-Stated? Author [facility] Behavioral Health Improving( 3:34 PM CDT) Domitila Gaston RN Note: Patient will establish a comfort-function goal and identify the pain level that will allow the patient to perform desired activities and achieve an acceptable quality of life. Medical Devices Implanted Type Area Grey Iron Molder Device Identifier Shelf Expiration Date Model / Serial / Lot Depuy Orthopaedics Inc [id number] Topock 52mm Sector Hip Shell Acetabular Gription Sterile Latex Free - [id number] Implanted:Qty: 1 on 07/10/2019 by Puma Mckenzie MD at [facility] Right: Hip [employer] 05/18/2029 [id number] / / [id number] Dep[employer] [id number] Topock 52mm 36mm Hip Neutral Liner Acetabular Altrx Sterile Latex Free - [id number] Implanted:Qty: 1 on 07/10/2019 by Puma Mckenzie MD at [facility] Right: Hip [employer] 04/18/2024 [id number] / / [id number] [employer] 1217-25-500 Topock 6.5mm 25mm Acetabular Cancellous Screw Bone Sterile - [id number] Implanted:Qty: 1 on 07/10/2019 by Puma Mckenzie MD at [facility] Right: Hip [employer] 12/16/2028 1217-25-500 / / [id number] Dep[employer] [id number] Articul/Ernesto 36mm Cementless Hip +1.5mm /14 Taper Head Femoral Latex Free - [id number] Implanted:Qty: 1 on 07/10/2019 by Puma Mckenzie MD at [facility] Right: Hip [employer] 03/18/2024 [id number] / / [id number] Dep[employer] [id number] Actis Collared Hip /14 6 Standard Offset Stem Femoral - [id number] Implanted:Qty: 1 on 07/10/2019 by Puma Mckenzie MD at [facility] Right: Hip [employer] 06/18/2029 [id number] / / [id number] [employer] Topock 6.5mm 35mm Acetabular Cancellous Screw Bone Sterile 1217-35-500 - [id number] Implanted:Qty: 1 on 11/01/2021 by Puma Mckenzie MD at [facility] Left: Hip [employer] 08/17/2031 1217-35-500 / / [id number] Dep[employer] [id number] Topock 52mm 36mm Hip Neutral Liner Acetabular Altrx Sterile Latex Free - [id number] Implanted:Qty: 1 on 11/01/2021 by Puma Mckenzie MD at [facility] Left: Hip [employer] 08/16/2026 [id number] / / [id number] Dep[employer] Topock 52mm Sector Hip Shell Acetabular Gription Sterile Latex Free [id number] - [id number] Implanted:Qty: 1 on 11/01/2021 by Puma Mckenzie MD at [facility] Left: Hip [employer] [id number] 08/17/2031 [id number] / / [id number] Dep[employer] [id number] Actis Collar Hip 7 High Offset Stem Femoral - [id number] Implanted:Qty: 1 on 11/01/2021 by Puma Mckenzie MD at [facility] Left: Hip [employer] [id number] 08/17/2031 [id number] / / [id number] Dep[employer] Articul/Ernesto 36mm Cementless Hip +1.5mm 06/01 Taper Head Femoral Latex Free [id number] - [id number] Implanted:Qty: 1 on 11/01/2021 by Puma Mckenzie MD at [facility] Left: Hip [employer] 09/16/2026 [id number] / / [id number] Medtronic Inc Protege Gps Exprt 9mm .079in 60mm 80cm Otw Delivery System Self Lteq74-11-90-63 - [id number] Implanted:Qty: 1 on 02/18/2022 by Stalin Arauz MD at [facility] [employer] Inc 10/22/2024 IXFT70-79-3 0 -80 / / [id number] [employer] Angio-Seal Evolution 6fr Vascular Closure [id number] - [id number] Implanted:Qty: 1 on 02/18/2022 by Stalin Arauz MD at [facility] [employer] 06/18/2022 [id number] / / [id number] [employer] Zilver Ptx 6mm 120mm 125cm Drug Elute Otw Delivery System [id number] - [id number] Implanted:Qty: 1 on 02/18/2022 by Stalin Arauz MD at [facility] [employer] 10/21/2023 [id number] / / [id number] [employer] Zilver Ptx 6mm 100mm 125cm Otw Preload Delivery System Self [id number] - [id number] Implanted:Qty: 1 on 02/18/2022 by Stalin Arauz MD at [facility] [employer] 11/09/2023 [id number] / / [id number] Medtronic Inc Everflex Entrust 8mm 60mm 120cm Self Expand Triaxial Low Profile - [id number] Implanted:Qty: 1 on 02/18/2022 by Stalin Arauz MD at [facility] [employer] 07/26/2024 VYX41-31-31 0 -120 / / [id number] [employer] Medical Max-Wellness Angio-Seal Evolution 6fr Vascular Closure [id number] - [id number] Implanted:Qty: 1 on 03/24/2022 by Stalin Arauz MD at [facility] Social[employer]er [facility] 05/18/2022 [id number] / / [id number] [employer] Occluder Cvasc Judy Flexible Braided Amplatzer Amulet 20mm Nitinol 5-Clo2-530-020 - [id number] Implanted:Qty: 1 on 07/31/2024 by Stalin Arauz MD at [facility] 12/16/2028 9-ACP2-00 7-0 / / [id number] Procedures Procedure Name Priority Date/Time Associated Diagnosis [...] Read Routine (OP Routine) 08/21/2024 3:38 PM WAIT STAFF Stage 3 chronic kidney disease, unspecified whether stage 3a or 3b CKD (HCC) Essential (primary) hypertension Chronic systolic (congestive) heart failure (HCC) Hypertensive chronic kidney disease with stage 1 through stage 4 chronic kidney disease, or unspecified chronic kidney disease [place] ARTHROCENTESIS ASPIR&/INJ MAJOR JT/BURSA W/O US Routine 08/15/2024 1:15 PM WAIT STAFF 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 TRANSTHORACIC ECHO (TTE) LIMITED/FOLLOW UP W LTD DOPPLER/CF WO CONTRAST Routine 08/01/2024 8:20 AM WAIT STAFF EGFR Routine 08/01/2024 7:55 AM WAIT STAFF DIFFERENTIAL AUTO Routine 08/01/2024 7:5 5 AM WAIT STAFF CBC WITH AUTO DIFFERENTIAL Routine 08/01/2024 7:55 AM WAIT STAFF MAGNESIUM Routine 08/01/2024 7:55 AM WAIT STAFF BASIC METABOLIC PANEL Routine 08/01/2024 7:55 AM WAIT STAFF ECG 12-LEAD Routine 08/01/2024 7:25 AM WAIT STAFF APTT Routine 07/31/2024 6:15 PM WAIT STAFF PROTIME-INR Routine 07/31/2024 6:15 PM WAIT STAFF PERC JUDY CLOSURE W/IMPLANT (WATCHMAN) [id number] Routine 07/31/2024 11:48 AM WAIT STAFF Paroxysmal atrial fibrillation (HCC) TRANSESOPHAGEAL ECHO (AZEEM) W DOPPLER/CF WO CONTRAST Routine 07/31/2024 11:45 AM WAIT STAFF POCT ACTIVATED CLOTTING TIME, HIGH RANGE Routine 07/31/2024 11:30 AM WAIT STAFF NJ AN ELECTIVE ENDOTRACHEAL AIRWAY Routine 07/31/2024 11:15 AM WAIT STAFF ECG 12-LEAD Routine 07/31/2024 9:15 AM WAIT STAFF PREPARE RBC STAT 07/31/2024 8:59 AM WAIT STAFF EGFR Routine 07/31/2024 8:41 AM WAIT STAFF DIFFERENTIAL AUTO Routine 07/31/2024 8:4 1 AM WAIT STAFF TYPE AND SCREEN Timed 07/31/2024 8:41 AM WAIT STAFF COMPREHENSIVE METABOLIC PANEL Routine 07/31/2024 8:41 AM WAIT STAFF CBC WITH AUTO DIFFERENTIAL Routine 07/31/2024 8:41 AM WAIT STAFF from Last 3 Months Results * (ABNORMAL) [...] LAB BLOOD ORDERABLES Final Re sult [facility] [address] [facility] [place] [address] * (ABNORMAL) Urinalysis reflex to microscopic (10/10/2024 11:30 AM CDT) Color, ur Straw Yellow Clarity, ur Clear Clear [facility] ([place]) Specific gravity, ur 1.006 1.003 - 1.030 [facility] pH, urine 7.0 [facility]) Comment: Interpretive Data U rine pH is affected by diet, medications, systemic acid-base disturbances, and renal tubular function. pH may affect urinary stone formation. For example, urine pH below 6.0 may help reduce the tendency for calcium phosphate stones and pH greater than 6.0 may reduce the tendency for uric acid stone formation. Source: [facility] Current Interpretive Data was last revised on [...] [facility] ([place]) Leukocyte esterase, ur 1+(A) Negative [facility] UA reflex comment Reflex to microscopic UA will be performed. [facility] Urine 10/10/2024 11:3 0 AM CDT 10/10/2024 11:48 AM CDT us Tristin Guillen MD LAB URINE ORDERABLES Final Re sult [facility] [address] [facility] [place] [address] * (ABNORMAL) Urinalysis, microscopic only (10/10/2024 11:30 AM CDT) WBC, ur 0-5 0 - 5 /HPF RBC, ur 0-2 0 - 2 /HPF [facility] Epithelial cells, squamous, ur 1-5 0 - 5 /HPF [facility] Mucous, ur Present(A) [facility] Hyaline casts, ur 1-5 0 - 10 /LPF [facility] Urine 10/10/2024 11:3 0 AM CDT 10/10/2024 11:48 AM CDT us Tristin Guillen MD LAB URINE ORDERABLES Final Re sult [facility] [address] [facility] [place] [address] * (ABNORMAL) Renal function panel (10/10/2024 11:30 [...] Phosphorus, pl 4.0 2.3 - 4.5 mg/dL [facility] Albumin 3.7 3.5 - 5.0 g/dL [facility] Blood 10/10/2024 11:3 0 AM CDT 10/10/2024 11:45 AM CDT us Tristin Guillen MD LAB BLOOD ORDERABLES Final Re sult [facility] [address] [facility] [place] [address] * TRANSESOPHAGEAL ECHO (AZEEM) W DOPPLER/CF WO CONTRAST (10/03/2024 9:06 AM CDT) Anatomical Region Laterality Modality Ultrasound 10/03/2024 Narrative 10/07/2024 11:04 PM CDT [employer] Job ID: [id number] Kaybus Document ID: [id number] Dictated date/time: [id number] TRANSESOPHAGEAL ECHO This 88-year-old recently underwent Amulet appendage closure. Presents today for transesophageal echo follow-up study. After obtaining informed consent, the patient was brought to the cardiac laborer starch factory area. Noninvasive blood pressure, heart rate and oxygen saturation monitoring was applied. Topical anesthesia was applied to the posterior oropharynx. Conscious sedation was administered by the laborer starch factory staff under my supervision. A total of [...] on the findings, Plavix can be discontinued. Satlin Arauz MD Job ID/Internal Job ID: [id number] us Stalin Arauz MD CV ECHO PROCEDURES Final Result * Clinical pathology report (09/16/2024 1:08 PM CDT) Miscellaneous 09/16/2024 1:0 8 PM CDT 09/17/2024 8:39 AM CDT Narrative 09/17/2024 4:43 PM CDT EPIC results best viewed via link to PDF [facility] Department of Pathology [address] [place], [place] [id number] Final Report Note to Patients: This report [...] details. Patient Name: TESS BENEDICT I. Address: [address] [place] [address] [place] [address]- Gender: F : 1935 (Age: 88) Service: Location: Hospital #: [id number] Patient Type: [facility] ANCILLARY Taken: 09/16/2024 Received: 09/17/2024 Accessioned: 09/17/2024 Physician(s): Tristin Guillen M.D. [facility] Specimen(s) Received A: Blood (serum) Serum [...] determined by the Surgical Pathology Department at [facility] as part of an ongoing quality control tech program and in compliance with federally mandated [...] characteristics determined by the Surgical Pathology Department [facility]. It has not been cleared or [...] BLOOD ORDERABLES Final Re sult [facility] [place] [address] [facility] [place] [address] * (ABNORMAL) Differential, auto (09/16/2024 1:08 PM [...] ORDERABLES Final Re sult Performing Organization Address City/[facility]/ZIP Co de Phone Number [facility] [address] [place] [address] * (ABNORMAL) Iron profile w/ IBC (09/16/2024 1:08 PM CDT) Iron 36 35 - 145 mcg/dL TIBC 404(H) 250 - 400 mcg/dL [facility]) Transferrin saturation 9(L) 20 - 50 % [facility] Blood 09/16/2024 1:08 PM CDT 09/16/2024 2:38 PM CDT Tristin Guillen MD LAB BLOOD ORDERABLES Final Re sult Performing Organization Address [facility] Co de Phone Number [facility] [address] [place] [address] * (ABNORMAL) Urinalysis reflex to microscopic (09/16/2024 1:08 PM CDT) Color, ur Straw Yellow Clarity, ur Clear Clear [facility]) Specific gravity, ur 1.006 1.003 - 1.030 [facility] pH, urine 7.0 [facility] ([place]) Comment: Interpretive Data U rine pH is affected by diet, medications, systemic acid-base disturbances, and renal tubular function. pH may affect urinary stone formation. For example, urine pH below 6.0 may help reduce the tendency for calcium phosphate stones and pH greater than 6.0 may reduce the tendency for uric acid stone formation. Source: [facility] [facility] [employer] Current Interpretive Data was last revised on [...] Final Re sult [facility] ([place]) 1 [facility] [place] [address] * (ABNORMAL) CBC with auto differential (09/16/2024 [...] BLOOD ORDERABLES Final Re sult [facility] ([place]) 1 [facility] [place] [address] * (ABNORMAL) Protein / creatinine ratio, urine, random (09/16/2024 1:08 PM CDT) Protein, ur, quant <5.0 mg/dL Comment: Interpretive Data No reference range established. Current interpretive data was last revised 2018. Creatinine Ur 15.8 mg/dL [facility] ([place]) Comment: Interpretive Data No reference range established. Current interpretive data was last revised 2018. Protein/creatinin e ratio <316.5(H) 0.0 - 180.0 mg/g CR [facility] LEONCIO ([place]) Urine 09/16/2024 1:08 PM CDT 09/16/2024 1:56 PM CDT Tristin Guillen MD LAB URINE ORDERABLES Final Re sult Performing Organization Address City/[facility]/ZIP Co de Phone Number [facility] ([place]) 1 [facility] [place] [address] * (ABNORMAL) Erythrocyte sedimentation rate (09/16/2024 1:08 PM CDT) Pathologist [facility] Erythrocyte sedimentation rate 32(H) 1 - 30 mm/hr Blood 09/16/2024 1:08 PM CDT 09/16/2024 2:38 PM CDT Tristin Guillen MD LAB BLOOD ORDERABLES Final Re sult [facility] ([place]) 1 [facility] [place] [address] * C3 complement (09/16/2024 1:08 PM CDT) Pathologist [facility] Complement C3 156 90 - 180 mg/dL Comment:Testing performed by : [facility], [address] [place] [address], [place]., [address] Blood 09/16/2024 1:08 PM CDT 09/16/2024 5:54 PM CDT Tristin Guillen MD LAB BLOOD ORDERABLES Final Re sult [facility] ([place]) 1 [facility] [place] [address] * TSH (09/16/2024 1:08 PM CDT) [facility] Thyroid Stimulating Hormone 3.53 0.30 - 4.20 mcIUnit/mL Blood 09/16/2024 1:08 PM CDT 09/16/2024 2:38 PM CDT Tristin Guillen MD LAB BLOOD ORDERABLES Final Re sult Performing Organization Address [facility]/ZIP Co de Phone Number [facility] ([place]) 1 [facility] [place] [address] * T4, free (09/16/2024 1:08 PM CDT) [facility] Free T4 1.53 0.90 - 1.70 ng/dL Blood 09/16/2024 1:08 PM CDT 09/16/2024 2:38 PM CDT Tristin Guillen MD LAB BLOOD ORDERABLES Final Re sult Performing Organization Address [facility] Co de Phone Number [facility] FANG ([place]) 1 [facility] [place] [address] * (ABNORMAL) Protein electrophoresis with reflex, serum with interpretation (09/16/2024 1:08 PM CDT) Pathologist [facility] Protein, sr 6.7 6.2 - 8.2 g/dL Comment:Testing performed by : [facility], [address] [place] [address], [address] Albumin 3.5 3.2 - 5.0 g/dL [facility] ([place]) Comment:Testing performed by : [facility], [address] [place] [address], [id number] Alpha-1 globulin 0.6(H) 0.2 - 0.4 g/dL [facility] ([place]) Comment:Testing performed by : [facility], [address] [place] [address], [id number] Alpha-2 globulin 0.8 0.5 - 1.0 g/dL [facility] ([place]) Comment:Testing performed by : [facility], [address] [place] [address], [address] Beta-1 globulin 0.5 0.3 - 0.6 g/dL [facility] ([place]) Comment:Testing performed by : [address], [address] Beta-2 globulin 0.4 0.2 - 0.6 g/dL [facility] ([place]) Comment:Testing performed by : [facility], [address] [place] [address], [id number] Gamma globulin 0.9 0.5 - 1.7 g/dL [facility] ([place]) Comment:Testing performed by : [address], [address] SPEP interp See Cl Path Rpt [facility] ([place]) Comment:Testing performed by : [address], [address] Blood 09/16/2024 1:0 8 PM CDT 09/16/2024 5:54 PM CDT us Tristin Guillen MD LAB BLOOD ORDERABLES Final Re sult [facility] ([place]) 1 [facility] [place] [address] * Phosphorus (09/16/2024 1:08 PM CDT) Phosphorus, pl 4.2 2.3 - 4.5 mg/dL Blood 09/16/2024 1:08 PM CDT 09/16/2024 2:38 PM CDT us Tristin Guillen MD LAB BLOOD ORDERABLES Final Re sult [facility] ([place]) 1 [facility] [place] [address] * (ABNORMAL) PTH (09/16/2024 1:08 PM CDT) PTH 125(H) 15 - 65 pg/mL Blood 09/16/2024 1:08 PM CDT 09/16/2024 2:38 PM CDT us Tristin Guillen MD LAB BLOOD ORDERABLES Final Re sult Performing Organization Address [facility] Co de Phone Number [facility] ([place]) 1 [facility] [place] [address] * (ABNORMAL) Iron level (09/16/2024 1:08 PM CDT) Iron 33(L) 35 - 145 mcg/dL Blood 09/16/2024 1:08 PM CDT 09/16/2024 2:38 PM CDT us Tristin Guillen MD LAB BLOOD ORDERABLES Final Re sult Performing Organization Address [facility] Co de Phone Number [facility] ([place]) 1 [facility] [place] [address] * Hemoglobin A1c (09/16/2024 1:08 PM CDT) Hgb A1C 5.5 4.0 - 5.6 % Estimated Average Glucose 111 mg/dL [facility] ([place]) Comment: The ADA recommends reporting an estimated Average Glucose (eAG) with all Hemoglobin A1c results using the equation derived from a study of 507 normal and diabetic adults. Minority populations were underrepresented and children were not included. (Diabetes Care 31:2559-5656, 2008). The eAG is not equivalent to a fasting glucose. Blood 09/16/2024 1:08 PM CDT 09/16/2024 2:38 PM CDT Tristin Guillen MD LAB BLOOD ORDERABLES Final Re sult Performing Organization Address City/[facility]/ZIP Co de Phone Number [facility] ([place]) 1 [facility] [place] [address] * Bilirubin, direct (09/16/2024 1:08 PM CDT) Bilirubin, direct 0.1 0.1 - 0.3 mg/dL Blood 09/16/2024 1:08 PM CDT 09/16/2024 2:38 PM CDT Tristin Guillen MD LAB BLOOD ORDERABLES Final Re sult Performing Organization Address City/[facility]/ZIP Co de Phone Number [facility] ([place]) 1 [facility] [place] [address] * (ABNORMAL) Comprehensive metabolic panel (09/16/2024 1:08 PM CDT) Sodium 127(L) 135 - 145 mmol/L Potassium, pl 3.2(L) 3.3 - 4.9 mmol/L [facility] ([place]) Chloride 83(L) 97 - 110 mmol/L [facility] ([place]) CO2 28 22 - 32 mmol/L [facility] ([place]) Anion gap 16(H) 2 - 15 mmol/L [facility] ([place]) BUN 78(H) 6 - 25 mg/dL [facility] ([place]) Creatinine 1.78(H) 0.60 - 1.10 mg/dL [facility] ([place]) Glucose 94 70 - 199 mg/dL [facility] ([place]) Comment: Interpretive Data Fasting [...] Final Re sult [facility]ANG ([place]) 1 [facility] [place] [address] * US Kidney Complete (08/21/2024 3:38 PM WAIT STAFF) Anatomical Region Laterality Modality Kidney N/A Ultrasound [...] Miguel Case M.D. CH: [place] Report ID: [id number] Reading Location: [id number] Procedure Note José Miguel Case Jr., MD [...] Miguel Case M.D. CH: [place] Report ID: [id number] Reading Location: [id number] us Tristin Guillen MD IMG US PROCEDURES Final Resul t * [place] ARTHROCENTESIS ASPIR&/INJ MAJOR JT/BURSA W/O US (08/15/2024 1:15 PM WAIT STAFF) Narrative Jadyn Hobson PA - 08/15/2024 1:15 PM WAIT STAFF Jadyn Hobson PA 08/15/2024 2:12 PM Large [...] LTD DOPPLER/CF WO CONTRAST (08/01/2024 8:20 AM WAIT STAFF) Anatomical Region Laterality Modality Ultrasound 08/01/2024 6:46 AM WAIT STAFF Narrative 08/01/2024 9:39 [place] [address] Limited Echocardiogram Report Patient Name: TESS BENEDICT I : 1935 Study Date: 08/01/2024 6:46:22 AM Gender: F Tech: Location: [id number] Ref Provider: STALIN ARAUZ Height(Cm): 152 BSA: [...] DO, FACC, FASE, FASNC 08/01/2024 9:38:26 AM WAIT STAFF Procedure Note Latanya Fitzgerald DO - 08/01/2024 [place] [address] Limited Echocardiogram Report Patient Name: TESS BENEDICT I : 1935 Study Date: 08/01/2024 6:46:22 AM Gender: F Tech: Location: [id number] Ref Provider: STALIN ARAUZ Height(Cm): 152 BSA: [...] FACFord, FRANCISCO JAVIER, SOLANGE 08/01/2024 9:38:26 AM WAIT STAFF us Stalin Arauz MD CV ECHO PROCEDURES Final Result * (ABNORMAL) eGFR (08/01/2024 7:55 AM WAIT STAFF) eGFR 43(L) >=60 mL/min/1. 73 m2 Comment: [...] last reviewed 2021. Blood 08/01/2024 7:55 AM WAIT STAFF 08/01/2024 8:13 AM WAIT STAFF Stalin Arauz MD LAB BLOOD ORDERABLES Final Resu lt [facility] [address] Department [place] [address] * (ABNORMAL) Differential, auto (08/01/2024 7:55 AM WAIT STAFF) Neutrophil abs 9.9(H) 1.5 - 6.5 K/cumm Imm gran abs 0.1 0.0 - 0.1 K/cumm [facility] Lymphocyte abs 0.6(L) 0.8 - 3.3 K/cumm [facility] Monocyte abs 0.8 0.2 - 0.8 K/cumm [facility] Eosinophil abs 0.0 0.0 - 0.5 K/cumm [facility] Basophil abs 0.0 0.0 - 0.1 K/cumm [facility] Neutrophil pct 86.7 % [facility] Comment: Interpretive Data Percent cell count reference [...] revised on 2017. Blood 08/01/2024 7:55 AM WAIT STAFF 08/01/2024 8:13 AM WAIT STAFF us Stalin Arauz MD LAB BLOOD ORDERABLES Final Resu lt [facility] [address] Department [place] [address] * (ABNORMAL) CBC with auto differential (08/01/2024 7:55 AM WAIT STAFF) WBC 11.4(H) 3.8 - 9.9 K/cumm Hgb 12.2 11.9 - 15.5 g/dL [facility] Hct 41.7 35.6 - 45.5 % [facility] Plt 276 150 - 400 K/cumm [facility] MPV 9.4 9.1 - 12.3 fL [facility] RBC 4.78 3.90 - 5.20 M/cumm [facility] MCV 87.2 81.3 - 96.4 fL [facility] MCH 25.5(L) 27.1 - 33.3 pg [facility] MCHC 29.3(L) 32.3 - 35.7 g/dL [facility] RDW CV 17.1(H) 11.1 - 14.9 % [facility] RDW SD 53.6(H) 35.7 - 48.1 fL [facility] NRBC abs 0.00 0.00 - 0.01 K/cumm [facility] Blood 08/01/2024 7:55 AM WAIT STAFF 08/01/2024 8:13 AM WAIT STAFF Stalin Arauz MD LAB BLOOD ORDERABLES Final Resu lt Performing Organization Address [facility] Co de Phone Number [facility] [address] [facility] [employer] [place], [place] [id number] * Magnesium (08/01/2024 7:55 AM WAIT STAFF) [facility] Magnesium 2.3 1.4 - 2.5 mg/dL Blood 08/01/2024 7:55 AM WAIT STAFF 08/01/2024 8:13 AM WAIT STAFF Stalin Arauz MD LAB BLOOD ORDERABLES Final Resu lt Performing Organization Address [facility] de Phone Number [facility]I VAUGHAN [address] [place] [address] * (ABNORMAL) Basic metabolic panel (08/01/2024 7:55 AM WAIT STAFF) Pathologist [facility] Sodium 137 135 - 145 mmol/L Potassium, pl 4.1 3.3 - 4.9 mmol/L [facility] Chloride 99 97 - 110 mmol/L [facility] CH CO2 24 22 - 32 mmol/L [facility] Anion gap 14 2 - 15 mmol/L [facility] CH BUN 43(H) 6 - 25 mg/dL [facility] Creatinine 1.22(H) 0.60 - 1.10 mg/dL [facility] CH Glucose 100 70 - 199 mg/dL [facility] Comment: Interpretive Data Fasting glucose [...] mg/dL [facility] V[facility]GHAN Blood 08/01/2024 7:55 AM WAIT STAFF 08/01/2024 8:13 AM WAIT STAFF Stalin Arauz MD LAB BLOOD ORDERABLES Final Resu lt Performing Organization Address [facility] de Phone Number [facility] [address] Department [place] [address] * ECG 12 lead (08/01/2024 7:25 AM WAIT STAFF) 08/01/2024 7:25 AM WAIT STAFF Narrative [facility] - 08/01/2024 10:33 AM WAIT STAFF Vent Rate: 79 bpm RR Interval: 757 msec [place] Interval: 0 msec QRS Duration: 73 msec QT Interval: 378 msec QTC Interval: 412 msec P-R-T Douglas: 0 - 74 - 17 degrees IMPRESSION: ATRIAL FIBRILLATION WITH CONTROLLED VENTRICULAR RESPONSE Electronically Signed By: Collin Rich MD, [facility] Stalin Arauz MD ECG ORDERABLES Final Result Performing Organization Address [facility] de Phone Number [employer] [facility] * aPTT (07/31/2024 6:15 PM WAIT STAFF) aPTT 32 28 - 38 sec Comment: Interpretive Data Heparin therapeutic range: 66.0 - 100.0 seconds. Range based on correlation with therapeutic heparin activity range of 0.3 - 0.7 Units/mL. Current interpretive data was last revised on 2023. Blood 07/31/2024 6:15 PM WAIT STAFF 07/31/2024 6:19 PM WAIT STAFF Stalin Arauz MD LAB BLOOD ORDERABLES Final Resu lt Performing Organization Address [facility] Co de Phone Number [facility]I VAUGHAN [address] [facility] [place] [address] * Protime-INR (07/31/2024 6:15 PM WAIT STAFF) PT 12.2 9.7 - 13.0 sec INR 1.13 0.90 - 1.20 [facility] Comment: Interpretive data Oral anticoagulant therapeutic ranges: Venous thromboembolism prophylaxis or treatment: 2.0-3.0 CARDIOLOGY Standard range: 2.0-3.0 High-intensity range: 2.5-3.5 Refer to indication-specific guidelines for appropriate target ranges for prosthetic heart valve replacement. Current interpretive data was last revised on 2019. Blood 07/31/2024 6:15 PM WAIT STAFF 07/31/2024 6:19 PM WAIT STAFF Stalin Arauz MD LAB BLOOD ORDERABLES Final Resu lt Performing Organization Address [facility] de Phone Number [facility] VAUGH[facility] [address] [place] [address] * PERC JUDY CLOSURE W/IMPLANT (WATCHMAN) [id number] (07/31/2024 11:48 AM WAIT STAFF) Anatomical Region Laterality Modality X-Ray Angiograph y Narrative 07/31/2024 12:29 PM WAIT STAFF HISTORY 88y.o. old female with a history [...] fail. The patient was brought to the [facility] OR in a fasting state. A time-out was performed. The patient was prepped and draped in the usual sterile fashion. General anesthesia was administered. The patient received endotracheal intubation. OPERATORS: Stalin arauz MD, VASCULAR ACCESS The right femoral vein was accessed using the modified Seldinger technique. An 8-Turkish sheath was inserted. TRANSSEPTAL PUNCTURE The patient was kept therapeutically anticoagulated throughout the case. Transseptal puncture was made to gain access to the left atrium using a Wummelkiste needle system. Transseptal catheterization was performed and guided by AZEEM see imaging note . The transseptal puncture was performed mid and inferior position. The wire was advanced through the left atrium and a double curved delivery sheath was placed over the wire. An Amplatzer delivery catheter TorqVue was advanced into the left atrial appendage. A 5-Turkish pigtail was used to gain access into [...] W DOPPLER/CF WO CONTRAST (07/31/2024 11:45 AM WAIT STAFF) Anatomical Region Laterality Modality Ultrasound Narrative 07/31/2024 12:35 PM WAIT STAFF Table formatting from the original result was not included. Result Text PROCEDURE Transesophageal ECHO for left atrial appendage closure INDICATION 88-year-old with paroxysmal Atrial fibrillation and [id number] score 6 , HAS BLED 4 with [...] Clotting Time, High Range (07/31/2024 11:30 AM WAIT STAFF) ACT 280(H) 87 - 138 sec Blood 07/31/2024 11:3 0 AM WAIT STAFF 07/31/2024 11:30 AM WAIT STAFF Stalin Arauz MD LAB BLOOD ORDERABLES Final Resu lt Performing Organization Address City/State/[facility] Co dc Phone Number [facility] [address] [facility] [place] [address] * [place] AN ELECTIVE ENDOTRACHEAL AIRWAY (07/31/2024 11:15 AM WAIT STAFF) Narrative Rosita Sharma AA - 07/31/2024 11:15 AM WAIT STAFF Rosita Sharma AA 07/31/2024 11:15 AM Airway [...] * ECG 12 lead (07/31/2024 9:15 AM WAIT STAFF) 07/31/2024 9:15 AM WAIT STAFF Narrative [facility] - 07/31/2024 1:18 PM WAIT STAFF Vent Rate: 80 bpm RR Interval: 743 msec [place] Interval: 0 msec QRS Duration: 78 msec QT Interval: 389 msec QTC Interval: 425 msec P-R-T Douglas: 0 - 91 - 23 degrees IMPRESSION: ATRIAL FIBRILLATION BORDERLINE RIGHT AXIS DEVIATION ABNORMAL RHYTHM ECG Electronically Signed By: Dr. Gardenia Harper [facility] Stalin Arauz MD ECG ORDERABLES Final Result [facility] * Prepare RBC: 2 Units (07/31/2024 8:59 AM WAIT STAFF) Product code [id number] Unit Number [id number] 1-N [facility] Product Blood Type APOS [facility] Dispense Status RETURNED [facility] Product code [id number] [facility] Unit Number [id number] 7-Q [facility] Product Blood Type APOS [facility] CH Dispense Status RETURNED [facility] Blood 07/31/2024 8:59 AM WAIT STAFF Narrative [facility] - 08/04/2024 12:07 AM WAIT STAFF Specify Procedure:->LAAO Are special requirements needed? (All products are leukoreduced and CMV- safe)- >No Date required:-[id number] LRRBC # of [id number] Reasons:-Hold for procedure (specify procedure)} Stalin Arauz MD BLOOD BANK PRODUCT ORDERABLES F inal Result Performing Organization Address [facility] Co de Phone Number [facility]I VAUGHAN [address] [place] [address] * (ABNORMAL) eGFR (07/31/2024 8:41 AM WAIT STAFF) eGFR 40(L) >=60 mL/min/1. 73 m2 Comment: [...] last reviewed 2021. Blood 07/31/2024 8:41 AM WAIT STAFF 07/31/2024 8:44 AM WAIT STAFF Stalin Arauz MD LAB BLOOD ORDERABLES Final Resu lt Performing Organization Address [facility]/ZIP Co de Phone Number [facility]I VAUGHAN [address] [place] [address] * (ABNORMAL) Differential, auto (07/31/2024 8:41 AM WAIT STAFF) Neutrophil abs 8.2(H) 1.5 - 6.5 K/cumm Imm gran abs 0.1 0.0 - 0.1 K/cumm [facility] Lymphocyte abs 0.6(L) 0.8 - 3.3 K/cumm [facility] Monocyte abs 0.6 0.2 - 0.8 K/cumm [facility] Eosinophil abs 0.3 0.0 - 0.5 K/cumm [facility] Basophil abs 0.1 0.0 - 0.1 K/cumm [facility] Neutrophil pct 84.2 % [facility] Comment: Interpretive Data Percent cell count reference ranges are not reported, since discordance with absolute values may lead to misinterpretation of CBC data. Current Interpretive Data was last revised on 2017. Imm gran pct 1.0 % [facility] Comment: Interpretive Data Percent cell count reference ranges are not reported, since discordance with absolute values may lead to misinterpretation of CBC data. Current Interpretive Data was last revised on 2017. Lymphocyte pct 5.8 % [facility] Comment: Interpretive Data Percent cell count reference ranges are not reported, since discordance with absolute values may lead to misinterpretation of CBC data. Current Interpretive Data was last revised on 2017. Monocyte pct 5.7 % [facility] Comment: Interpretive Data Percent cell count reference ranges are not reported, since discordance with absolute values may lead to misinterpretation of CBC data. Current Interpretive Data was last revised on 2017. Eosinophil pct 2.7 % [facility] Comment: Interpretive Data Percent cell count reference ranges are not reported, since discordance with absolute values may lead to misinterpretation of CBC data. Current Interpretive Data was last revised on 2017. Basophil pct 0.6 % [facility] Comment: Interpretive Data Percent cell count reference ranges are not reported, since discordance with absolute values may lead to misinterpretation of CBC data. Current Interpretive Data was last revised on 2017. Blood 07/31/2024 8:4 1 AM WAIT STAFF 07/31/2024 8:45 AM WAIT STAFF us Stalin Arauz MD LAB BLOOD ORDERABLES Final Resu lt [facility] [address] [place] [address] * (ABNORMAL) CBC with auto differential (07/31/2024 8:41 AM WAIT STAFF) Pathologist [facility] WBC 9.8 3.8 - 9.9 K/cumm Hgb [...] K/cumm [facility] Blood 07/31/2024 8:41 AM WAIT STAFF 07/31/2024 8:45 AM WAIT STAFF Stalin Arauz MD LAB BLOOD ORDERABLES Final Resu lt [facility] [address] [facility] [place] [address] * Type and screen (07/31/2024 8:41 AM WAIT STAFF) Pathologist [facility] ABO Rh A Positive Ever, indirect Negative [facility] Blood 07/31/2024 8:41 AM WAIT STAFF 07/31/2024 8:52 AM WAIT STAFF Narrative [facility] - 07/31/2024 10:08 AM WAIT STAFF Has the patient had Daratumumab or Isatuximab in the past 6 months?->Unknown Stalin Arauz MD LAB BLOOD BANK TEST ORDERABLES Final Result Performing Organization Address City/[facility]/ZIP Co de Phone Number [facility]I VAUGHAN [address] [place] [address] * (ABNORMAL) Comprehensive metabolic panel (07/31/2024 8:41 AM WAIT STAFF) Sodium 137 135 - 145 mmol/L Potassium, [...] Units/L [facility] Blood 07/31/2024 8:41 AM WAIT STAFF 07/31/2024 8:44 AM WAIT STAFF Stalin Arauz MD LAB BLOOD ORDERABLES Final Resu lt [facility] [address] [place] [address] from Last 3 Months Insurance MEDICARE [facility] [facility] MEDIC[facility] MEDICARE [facility] MEDICARE [facility] [place] [address] MEDICARE BLUE CROSS MEDICARE SUPPLEMENT Advance Directives For more information, please contact: [phone] Documents on File Type Date Recorded 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 DIRECTIVE 05/14/2019 1:34 [...] 7:42 PM 12/30/2022 3:56 PM Care Teams Welding Engineer Relationship Specialty Start Date End Date Pepper Morgan MD PCP - General 09/16/16 Hank Garibay MD [address] [place] [facility] [address] [place] [address] Surgeon Orthopedic Surgery 03/27/17 Jacky Murry MD [address] [place] [facility] [address] [place] [address] Ophthalmology 03/27/17 Puma Mckenzie MD [address] [place] [address] Surgeon Orthopedic Surgery 07/11/19 Neha Jackson, PT Physical Therapist Physical Therapy 12/01/21 Stalin Arauz MD Consulting Physician Cardiology 12/08/22 Tiffany Rojas PA [address] [place] [address] [address] [place] [address] Gastroenterology 12/30/22 Klaus Deshpande MD [address] [place] [address] (work) Consulting Physician Neurology 06/13/23
--- OUTSIDE RECORDS SUMMARY | 2024-10-17 09:56 | XMS_ITS | Encounter Summary ---
Author Organization [facility] Address [address] [place] [address] Phone Care Team Providers Care Pododermatologist Name Role Phone Pepper Morgan MD Primary Care Provider + [phone] Hank Garibay MD Unavailable [phone] Jacky Murry MD Unavailable [phone] Puma Mckenzie MD Unavailable [phone] Neha Jackson PT Unavailable Unavailable Stalin Arauz MD Unavailable [phone] Tiffany Rojas Unavailable [phone] Klaus Deshpande MD Unavailable [phone] Andrea Waddell RN Unavailable [phone] Encounter Details Date Type Department Care Team (Late st Contact Info) Description 06/02/2020 Orders Only [facility] [address] [place] [address] Scanning, Provider Social History Tobacco [...] on file Legal Sex Female 4:33 AM [employer] Gender Identity Not on file Sexual Orientation [...] COVID: Suspected 06/01/2020 06/01/2020 06/15/2020 3:07 AM [employer] COVID: Suspected 04/21/2021 04/21/2021 04/21/2021 4:25 PM CDT COVID: Suspected 10/14/2021 10/14/2021 10/14/2021 1:53 PM CDT COVID: Suspected 02/16/2023 02/16/2023 02/16/2023 8:33 AM CDT COVID: Suspected 06/14/2023 06/14/2023 06/14/2023 6:44 PM [employer] COVID: Suspected 06/24/2023 06/24/2023 06/24/2023 12:46 PM [employer] documented as of this encounter Care Teams Pododermatologist Relationship Specialty Start Date End Date Pepper Morgan MD PCP - General 09/16/16 Hank Garibay MD [address] [place] [address] [address] [place] [address] Surgeon Orthopedic Surgery 03/27/17 Jacky Murry MD [address] [place] [address] [address] [place] [address] Ophthalmology 03/27/17 Puma Mckenzie MD [address] [facility] [address] [place] [address] Surgeon Orthopedic Surgery 07/11/19 Neha Jackson, PT Physical Therapist Physical Therapy 12/01/21 Stalin Arauz MD Consulting Physician Cardiology 12/08/22 Tiffany Rojas PA [address] [facility] [address] [place] [address] Gastroenterology 12/30/22 Klaus Deshpande MD [address] [facility] [address] [place] [address] Consulting Physician Neurology 06/13/23 Andrea Waddell, XU [address] [place] [address] [address] [place] [address] Tank 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
--- OUTSIDE RECORDS SUMMARY | 2024-10-17 09:58 | XMS_ITS | Continuity of Care Document ---
Author Organization [facility] Address [address] [place] [address] Phone Care Team Providers Care Pallet Repairer Name Role Phone Kevonhawa RESENDEZ, Tamie Unavailable [...] Diagnoses Date Provider Providers Copied on Encounter [facility], [address], [place], [place], [address], [place] tel:[phone] SEC Antoine DIXON Professional Complete Exam (chief complaint) Presence of intraocular lensVitreous degeneration, left eyeDrusen (degenerative ) of macula, bilateralEpir etinal membrane (ERM) of right eyeKeratoconj unctivitis sicca, not specified as Sjogren's, bilateral 4 Kevon OD Tamie. [address] [address], [address], [place], [place], [address], [place]. tel:[phone] Referring Provider: Tamie Porter, [facility] [address], [place], [address] . tel:[phone] [facility], [address] [place], [place] [address]cre[facility] [address], [place], [place], [address], [place] tel:[phone] SEC Anto[place] Professional YAG PO (chief complaint) Post op visit 4 Ryann OD Concetta. [address] [place], [place] [address], [address], [place], [place], [address], [place]. tel:[phone] Referring Provider: Tamie Porter, [address] [place], [place] [address]i [address], [place], [address] . tel:[phone] Office/outpa tient Visit, [facility], [address] [place], [place] [address]st [facility] [address], [place], [place], [address], [place] tel:[phone] SEC [place] Professional YAG capsulotomy evaluation (chief complaint) Other secondary cataract, left eye Sep-3 4 [place] Enrico. [address] [place], [place] [address]Call [place], [address], [place], [place], [address], [place]. tel:[phone] Referring Provider: Tamie Porter, [address] [place] [address] [address], [place], [address] . tel:[phone] Office/outpa tient Visit, [facility], [address] [place], [place] [address]crest [facility] [address], [place], [place], [address], [place] tel:[phone] SEC [place] Professional Follow up visit (chief complaint) Other secondary cataract, left eyeBilateral artificial lens implant Sep- 4 Kevon OD Tamie. [address] [place], [place] [address] [address], [address], [place], [place], [address], [place]. tel:[phone] Referring Provider: Tamie Porter, [address], [place], [address] . tel:[phone] [facility], [address], [place], [place], [address], [place] tel:[phone] SEC [place] Professional Complete Exam (chief complaint) Macular hole of right eyeDry eye syndrome of right lacrimal glandDry eye syndrome of left lacrimal glandVitreous degeneration, left eye Jan- 3 Kevon OD Tamie. [address] [place] [address] [address], [address], [place], [place], [address], [place]. tel:[phone] Referring Provider: Tamie Lund OD [place], [address], [place], [address] . tel:[phone] [facility], [address] [place] [address] [address], [place], [place], [address], [place] tel:[phone] SEC [place] Professional Complete Exam (chief complaint) Vitreous degeneration, left eyePresence of intraocular lensOther secondary cataract, left eyeDrusen (degenerative ) of macula, bilateral Jan- 2 Jeanmarie Rico. [address], [address], [place], [place], [address], [place]. tel:[phone] Referring Provider: Jacky Escobedo, [address], [place], [address] . tel:[phone] Office/outpa tient Visit, [facility], [address], [place], [place], [address], [place] tel:[phone] SEC [place] Professional hair like image (chief complaint) Vitreous degeneration, left eyePresence of intraocular lensOther secondary cataract, left eye Aug- 2 Jeanmarie Rico. [address] [facility], [address], [place], [place], [address], [place]. tel:[phone] Referring Provider: Jacky Escobedo, [address], [place], [address] . tel:[phone] [facility], [address], [place], [place], [address], [place] tel:[phone] SEC [place] Professional Complete Exam (chief complaint) Presence of intraocular lensMacular hole of right eyeOther secondary cataract, left eye 9 Jeanmarie Penason. [address], [place], [place], [address], [place]. tel:[phone] Referring Provider: Jacky Escobedo, [address] [facility] [address], [place], [address] . tel:[phone] [facility], [address], [place], [place], [address], [place] tel:[phone] SEC [place] Professional No Information 9 Jeanmarie Rico. [address], [place], [place], [address], [place]. tel:[phone] [facility], [address], [place], [place], [address], [place] tel:[phone] SEC [place] Professional Complete Exam (chief complaint) No Information 7 Jeanmarie Rico. [address], [place], [place], [address], [place]. tel:[phone] Referring Provider: Michael Liz, [address], [place], [address] . tel:[phone] [facility], [address], [place], [place], [address], [place] tel:[phone] SEC [place] Professional Complete Exam (chief complaint) No Information 6 Jazzmine Rodriguez. [address], [place], [place], [address], . tel:[phone] Referring Provider: Michael Liz, [address] [facility] [address], [place], [address] . tel:[phone] [facility], [address], [place], [place], [address], [phone] SEC [place] Professional Blurry vision (chief complaint) No Information 5 Conrado Blackburn. [address] [facility], [address], [place], [address], [place]. tel:[phone] Referring Provider: Michael Liz, [address] [facility] [address], [place], [address] . tel:[phone] [facility], [address], [place], [place], [address], [place] [phone] SEC Antoine DESTINY Professional No Information 5 Jazzmine Rodriguez. [address] [facility], [facility] [place], [address], . tel:[phone] Family History Family Member Type Diagnosis Age At Onset Mother Problem (finding) degenerative disorder o f macula Father Problem (finding) glaucoma Payers Payer name Insurance type Covered constitution party ID Authoriza tion(s) [place] [id number] [facility] Out Of State [id number] Social History Type Description Quantity Date Captured [...]
[2024-10-17 10:30] VITALS: BP 110/70
--- NOTE | 2024-10-17 10:41 | ED.UPPEXIN ---
HPI - Extremity Injury (Upper) General Chief Complaint: Extremity Injury, Upper Stated Complaint: Right Arm Injury Time Seen by Provider: 10/17/24 10:15 Source: patient and RN notes reviewed Mode of arrival: ambulatory Limitations: no limitations History of Present Illness HPI narrative: 88-year-old female presents [facility] complaining a right arm injury. Patient said she was getting into her car when she struck her right forearm on the side of the door. Patient denies any pain to her right forearm but states there is a skin tear present. Patient's is or tetanus up-to-date. Bleeding was controlled prior to arrival. Denies any other injuries. 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 Related Data Home Medications ?Medication ?Instructions ?Recorded ?Confirmed ?Last Taken ?Type cholecalciferol (vitamin D3) 50 50 mcg PO DAILY 12/25/20 09/18/24 Unknown History mcg (2,000 unit) capsule (Vitamin D3) felodipine 5 mg tablet,extended 5 mg PO DAILY 12/25/20 09/18/24 Unknown History release 24 hr propranolol 20 mg tablet 20 mg PO Q12H 12/25/20 09/18/24 Unknown History spironolactone 25 mg tablet 25 mg PO DAILY 12/25/20 09/18/24 Unknown History allopurinol 100 mg tablet mg 06/10/24 Unknown History atorvastatin 20 mg tablet mg 06/10/24 Unknown History fluticasone 100 mcg-salmeterol 50 inhalation 06/10/24 Unknown History mcg/dose blistr powdr for inhalation (Wixela Inhub) furosemide 80 mg tablet mg 06/10/24 Unknown History pantoprazole 40 mg tablet,delayed mg PO 06/10/24 Unknown History release dapagliflozin propanediol 10 mg mg 08/24/24 Unknown History tablet (Farxiga) metolazone 5 mg tablet mg 09/18/24 Unknown History pramipexole 0.75 mg tablet mg 09/18/24 Unknown History Allergies Allergy/AdvReac Type Severity Reaction Status Date / Time Sulfa (Sulfonamide Allergy Severe Anaphylaxis Verified 10/17/24 10:00 Antibiotics) lisinopril Allergy Intermediate Swelling Verified 10/17/24 10:00 trazodone Allergy Intermediate Swelling Verified 10/17/24 10:00 of Lip/Tongue/Throat amlodipine Allergy Unknown Unknown Verified 10/17/24 10:00 celecoxib Allergy Unknown Swelling Verified 10/17/24 10:00 scopolamine AdvReac Intermediate Confusion Verified 10/17/24 10:00 Review of Systems Review of Systems: CONSTITUTIONAL: Denies fever, chills, or sweats. EYES: Denies visual changes, redness, or discharge. ENT: Denies rhinorrhea, congestion, sore throat, or otalgia. CARDIOVASCULAR: Denies chest pain, palpitations, or edema. RESPIRATORY: Denies cough or dyspnea. GASTROINTESTINAL: Denies abdominal pain, nausea, vomiting, or diarrhea. GENITOURINARY: Denies dysuria or hematuria. SKIN: Denies rash or itching. Positive for skin tear. MUSCULOSKELETAL: Denies back pain, joint pain, or myalgia. NEUROLOGIC: Denies headache, numbness, or weakness. PSYCHIATRIC: Denies anxiety or depression. All other systems reviewed are negative, except as documented in HPI. [facility] Past Medical History Medical History Kidney failure Congestive heart failure Atrial fibrillation Melanoma removed left arm Restless leg syndrome Spinal stenosis Parkinson disease GERD (gastroesophageal reflux disease) HTN (hypertension) Surgical History Surgical History History of right hip replacement History of bilateral knee replacement Family History Family History Other Heart disease Hypertension Social History Social History Smoking status: Former smoker Alcohol intake: current Alcohol use details: rare Substance use type: does not use [facility] Gender identity (if verbalized by the patient): Female Comments At the time of my signature, I reviewed and agree with the nursing past medical, surgical, social, and family history. There is no relevant family history pertinent to the patient complaint. Exam Narrative: GENERAL: This is a well-nourished, well-developed adult, in no apparent distress. They are non ill-appearing, nontoxic appearing. HEAD: normocephalic, atraumatic. EYES: Sclera clear/white. Conjunctiva normal. Vision is grossly intact. Extraocular movements intact EARS: External ears normal. Hearing grossly intact. NOSE: External nose normal THROAT: Mucous membranes moist NECK: Neck supple, non-tender without lymphadenopathy, masses or thyromegaly. CARDIOVASCULAR: Regular rate and rhythm without murmurs, gallops, or rubs. RESPIRATORY: Respiratory rate normal, respiratory effort nonlabored, no respiratory distress SKIN: warm, Dry, intact with no suspicious lesions or rash, good texture and turgor. NEURO: awake, alert, and oriented to person, place and time. There were no obvious focal neurologic abnormalities. EXTREMITIES: Left arm is smaller than right arm. Right forearm: Skin tear present to the proximal anterior lateral surface the forearm. Skin tears measuring approximately 2 cm by 1.5 cm. Wound is superficial. Hemostasis achieved prior to arrival. No swelling, drainage, surrounding cellulitis, induration, or area of fluctuance. No pain with elbow flexion, extension, pronation, or supination. Normal range of motion. No bony tenderness or tenderness around the wound. No obvious deformity or swelling. Radial pulse 2 +and palpable. Capillary refill less than 2 seconds. Neurovascular status is intact distal to injury. Sensation is normal. BACK: Nontender without deformity. Course Course Emergency Course: Blood pressure was initially low during visit. Patient has a history of hypertension and has taken her blood pressure pills this morning. Patient denies any lightheadedness, dizziness, dizziness or lightheadedness while standing, or any symptoms. Repeat blood pressure shows the blood pressure was 110/70 which has improved. Peripheral pulses were strong and palpable. Advised patient to follow-up with primary care provider as she may be over therapeutic on her blood pressure medications. Portions of this record may have been created with voice recognition software Level of Care: Express Care Visit Vital Signs Vital signs: Vital Signs Temperature 96.8 F L 10/17/24 09:50 Pulse Rate 77 10/17/24 09:50 Respiratory Rate 16 10/17/24 09:50 Blood Pressure 95/57 L 10/17/24 09:50 Pulse Oximetry 100 10/17/24 09:50 Oxygen Delivery Room Air 10/17/24 09:50 Temperature 96.8 F L 10/17/24 09:50 Pulse Rate 77 10/17/24 09:50 Respiratory Rate 16 10/17/24 09:50 Blood Pressure 110/70 10/17/24 10:30 Pulse Oximetry 100 10/17/24 09:50 Oxygen Delivery Room Air 10/17/24 09:50 Reviewed MDM - Extremity Injury (Upper) MDM Narrative Medical decision making narrative: Superficial skin tear present to patient's right forearm. No obvious deformity or tenderness to palpation to the right forearm. Patient is having no pain to her right forearm. No evidence on exam that suggest the patient has a fracture in her right arm, therefore x-ray was not performed. Wound care was performed by nursing staff and a nonadherent dressing was applied to patient's wound. Patient's tetanus is up-to-date she states. Patient blood pressure was on the lower end however she is asymptomatic. Repeat blood pressure showed a blood pressure 110/70. Discussed physical exam findings. Advised supportive measures and signs/symptoms to go to the ER. Pt is appropriate for outpt treatment and f/u. Differential Diagnosis Differential diagnosis: Likely other (Forearm fracture, skin tear, laceration) Critical Care Time Critical Care Time Critical Care Time: No Discharge Plan Discharge Clinical Impression: Skin tear of right forearm without complication Qualifiers: Encounter type: initial encounter Qualified Code(s): S51.811A - Laceration without foreign body of right forearm, initial encounter Patient Disposition: Home Condition: Stable Instructions: Skin Tear (ED) Additional Instructions: Possible wound daily with mild soap and water. Keep the wound covered with nonadherent dressing that will stick to the wound bed. Follow-up with primary care provider in 3 days. If you develop any increased redness, swelling, discharge, fevers or any other concerns please go to the ER immediately. Please follow-up with her primary care provider about your low blood pressure reading today as you may be on too many blood pressure medications. Patient Language: Danish Prescriptions: No Action dapagliflozin propanediol [Farxiga] 10 mg tablet metolazone 5 mg tablet pramipexole 0.75 mg tablet cephalexin 500 mg capsule 500 mg PO Q8H 5 Days Qty: 15 0RF spironolactone 25 mg Tablet 25 mg PO DAILY propranolol 20 mg Tablet 20 mg PO Q12H felodipine 5 mg Tablet Extended Release 24 Hr 5 mg PO DAILY cholecalciferol (vitamin D3) [Vitamin D3] 50 mcg (2,000 unit) Capsule 50 mcg PO DAILY atorvastatin 20 mg tablet allopurinol 100 mg tablet furosemide 80 mg tablet pantoprazole 40 mg tablet,delayed release (/EC) PO fluticasone propion-salmeterol [Wixela Inhub] 100-50 mcg/dose blister with device INHALATION Follow-up/Referrals: Eddie,MD Pepper [Primary Care Provider] - Time of Disposition: 10:23
== END 2024-10-17 10:36 | disposition home or self-care (01) ==
PROVIDERS: PCP Internal Medicine Geriatric Medicine
DX: S51.811A Laceration without foreign body of right forearm, initial encounter (principal); I11.0 Hypertensive heart disease with heart failure; I50.9 Heart failure, unspecified; I48.91 Unspecified atrial fibrillation; G20.A1 Parkinson's disease without dyskinesia, without mention of fluctuations; Z87.891 Personal history of nicotine dependence; W22.09XA Striking against other stationary object, initial encounter
CPT/HCPCS: 99212; G0463